=== PATIENT | female | born 1975 | race Caucasian/White ===

== ENCOUNTER 2017-11-01 10:02 | Observation (INO) | payer BC ==
--- OUTSIDE RECORDS SUMMARY | 2017-11-01 10:18 | XMS REPORT ---
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 Active depressive disorder without prior episode Problem Low back pain M54.5 Active Problem Other chronic pain G89.29 Active Problem Recurrent UTI N39.0 Active Problem Anxiety disorder due to known F06.4 Active physiological condition Problem Primary insomnia F51.01 Active Problem History of kidney stones Z87.442 Active Problem Panic disorder [episodic paroxysmal F41.0 Active anxiety] Medications Medication Code Code Instructions Start End Status Dosage System Date Date Pentasa [facility] 99492830449 500 MG Orally Active 2 capsules Four times a day Pyridium ND 05165917255 200 MG Orally August 24August Active 1 tablet Three times a 2017 15, after meals 2017 Lyrica ND 89721295160 75 MG Orally Active 1 capsule 1 four times per to 3 hours day before bedtime in the evening Zofran ND 55384991825 4 MG Orally Active 2 tablets Twice a day Bactrim DS [facility] 26529280723 800-160 MG August 24August Active 1 tablet Orally Twice a 2017 Amitriptyline ND 92451386303 50 MG Orally Active 1 tablet HCl Once a day [place] [facility] 43140941471 7.5-325 MG Active 1 tablet as Orally every 8 needed hrs Results Name Result Date Reference Range Unit Abnormality Flag Urine Dip Stick ----Appearance Dark yellow/Turbid 20170824 ----SP. Gr 1.025 20170824 ----pH 6.0 20170824 ----Ketone Negative 20170824 ----Glucose Negative 20170824 ----Blood 3+ 20170824 ----Protein 1+ 20170824 ----Nitrite Negative 20170824 ----Leukocytes 1+ 20170824 Summary Purpose eClinicalWorks Submission
--- OUTSIDE RECORDS SUMMARY | 2017-11-01 10:18 | XMS REPORT ---
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 without prior episode Problem Other chronic pain G89.29 Active Assessment GERD without esophagitis K21.9 Active Problem Recurrent UTI N39.0 Active Problem Anxiety disorder due to known F06.4 Active physiological condition Problem Primary insomnia F51.01 Active Problem History of kidney stones Z87.442 Active Problem Panic disorder [episodic paroxysmal F41.0 Active anxiety] Assessment Recurrent UTI N39.0 Active Assessment Other chronic pain G89.29 Active Assessment Crohn''s disease of small and large K50.819 Active intestines with complication Assessment History of kidney stones Z87.442 Active Assessment Anxiety disorder due to known F06.4 Active physiological condition Assessment Primary insomnia F51.01 Active Assessment Low back pain M54.5 Active Assessment Migraine without aura and without G43.009 Active status migrainosus, not intractable Assessment Panic disorder [episodic paroxysmal F41.0 Active anxiety] Problem Current mild episode of major F32.0 Active depressive disorder without prior episode Medications Medication Code Code Instructions Start End Status Dosage System Date Date Nitrofurantoin ND 16677164503 100 MG Orally August 01July Active 1 capsule Monohyd Macro every 12 hrs 2017 27, with food 2017 [place] [facility] 29742235728 7.5-325 MG Active 1 tablet Orally every 8 as needed hrs Amitriptyline HCl ND 66220124790 50 MG Orally Active 1 tablet Once a day Zofran ND 79469495540 4 MG Orally Active 2 tablets Twice a day Pentasa [facility] 21509764433 500 MG Orally Active 2 capsules Four times a day Lyrica [facility] 46578070099 75 MG Orally Active 1 capsule four times per 1 to 3 day hours before bedtime in the evening Results No Known Results Summary Purpose eClinicalWorks Submission
[2017-11-01 10:43] LABS: Absolute Lymphocytes (CBC) 2.1 K/uL (0.7-4.9); Absolute Monocytes 0.5 K/uL (0.1-1.3); Absolute Neutrophil 4.5 K/uL (1.8-8.0); Basophils % 0.2 % (0-1.3); Hematocrit 32.1 % (36.0-45.0); MCH 34.3 pg (27.0-35.0); MCV 100.2 fL (80-100); MPV 9.1 fL (7.6-11.3); Monocytes % 7.1 % (3.3-12.3)
[2017-11-01 10:44] LABS: Protime INR 0.97
--- NOTE | 2017-11-01 11:08 | RAD REPORT ---
EXAM DESCRIPTION: CT - Head Brain Wo Cont - 11/01/2017 10:49 am CLINICAL HISTORY: CONFUSED Drowsiness COMPARISON: No comparisons TECHNIQUE: All CT scans are performed using dose optimization technique as appropriate and may inclu de automated exposure control or mA/KV adjustment according to patient size. FINDINGS: No intracranial hemorrhage, hydrocephalus or extra-axial fluid collection.No areas of brai n edema or evidence of midline shift. The paranasal sinuses and mastoids are clear. The calvarium is intact. IMPRESSION: No acute intracranial abnormality.
[2017-11-01 11:14] LABS: ALT/SGPT 87 U/L (12-78); AST/SGOT 46 U/L (15-37); Albumin 4.2 g/dL (3.4-5.0); Alkaline Phosphatase 179 U/L (45-117); BUN Blood Urea Nitrogen 25 mg/dL (7-18); Bicarbonate 21 mmol/L (21-32); Bilirubin Direct < 0.1 mg/dL (0-0.2); Bilirubin Total 0.1 mg/dL (0.2-1.0); Glucose Level 94 mg/dL (74-106); Magnesium 1.9 mg/dL (1.8-2.4); Potassium 3.9 mmol/L (3.5-5.1); Protein, Total 8.1 g/dL (6.4-8.2); Sodium Level 143 mmol/L (136-145)
[2017-11-01 11:15] LABS: Urine Bacteria 20-50 /HPF (<20); Urine Culture Reflex Order REFLEXED; Urine Mucus MOD /HPF (NONE SEEN); Urine RBC 20-50 /HPF (NONE SEEN)
[2017-11-01 11:26] LABS: Barbiturates NEGATIVE (NEGATIVE); Benzodiazepines NEGATIVE (NEGATIVE); Cocaine NEGATIVE (NEGATIVE); METHAMPHETAM NEGATIVE (NEGATIVE); Methadone NEGATIVE (NEGATIVE); Opiates NEGATIVE (NEGATIVE); Phencyclidine POSITIVE (NEGATIVE); THC Cannibis POSITIVE (NEGATIVE)
[2017-11-01] MEDS ORDERED: NA CHLORIDE 0.9% 1,000 ML ONE (11:35)
[2017-11-01] MEDS ORDERED: Levofloxacin500mg IV 500 MG/100 ML BAG IV ONE (11:35)
[2017-11-01 11:59] LABS: Urine Blood TRACE (NEG); Urine Glucose NEGATIVE (NEG); Urine Protein NEGATIVE (NEG); Urine pH 6.5 (5.0-7.0)
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
--- NOTE | 2017-11-01 12:20 | EDPHYS ---
Physician Documentation [facility] Name: Mckenna Avila Age: 42 yrs Sex: Female : 1975 Arrival Date: 11/01/2017 Time: 10:04 Bed 4 Private MD: None, None ED Physician Sai Pardo HPI: 11/01 12:15 This 42 yrs old Female presents to ER via Wheelchair with complaints of jr8 Confused. 12:15 Onset: The symptoms/episode began/occurred acutely, today. Associated signs and jr8 symptoms: Pertinent positives: vomiting. Modifying factors: The patient symptoms are alleviated by nothing, the patient symptoms are aggravated by nothing. The patient has experienced a previous episode. The patient has not recently seen a physician. stated that last known normal was 10 pm last night. Got a call from neighbor saying patient was not acting right. Came home and saw that she was slurring her speech, combative, and confused. Came to ED at that time. Patient alert to person, place but confused and slow to respond . 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 - Ebola Screening: : No symptoms or risks identified at this time. - Social history:: Smoking status: Patient/guardian denies using tobacco, Patient/guardian denies using alcohol. ROS: 12:15 Eyes: Negative for injury, pain, redness, and discharge, ENT: Negative for injury, jr8 pain, and discharge, Neck: Negative for injury, pain, and swelling, Cardiovascular: Negative for chest pain, palpitations, and edema, Respiratory: Negative for shortness of breath, cough, wheezing, and pleuritic chest pain, Back: Negative for injury and pain, MS/Extremity: Negative for injury and deformity, Skin: Negative for injury, rash, and discoloration. 12:15 Abdomen/GI: Positive for nausea and vomiting, Negative for abdominal pain, diarrhea, abdominal distension, hematemesis, rectal bleeding, flatulence. 12:15 Neuro: Positive for altered mental status. Exam: 12:15 Head/Face: Normocephalic, atraumatic. Eyes: Pupils equal round and reactive to light, jr8 extra-ocular motions intact. Lids and lashes normal. Conjunctiva and sclera are non-icteric and not injected. Cornea within normal limits. Periorbital areas with no swelling, redness, or edema. ENT: Nares patent. No nasal discharge, no septal abnormalities noted. Tympanic membranes are normal and external auditory canals are clear. Oropharynx with no redness, swelling, or masses, exudates, or evidence of obstruction, uvula midline. Mucous membranes moist. Neck: Trachea midline, no thyromegaly or masses palpated, and no cervical lymphadenopathy. Supple, full range of motion without nuchal rigidity, or vertebral point tenderness. No Meningismus. Cardiovascular: Regular rate and rhythm with a normal S1 and S2. No gallops, murmurs, or rubs. Normal PMI, no JVD. No pulse deficits. Respiratory: Lungs have equal breath sounds bilaterally, clear to auscultation and percussion. No rales, rhonchi or wheezes noted. No increased work of breathing, no retractions or nasal flaring. Abdomen/GI: Soft, non-tender, with normal bowel sounds. No distension or tympany. No guarding or rebound. No evidence of tenderness throughout. Back: No spinal tenderness. No costovertebral tenderness. Full range of motion. Skin: Warm, dry with normal turgor. Normal color with no rashes, no lesions, and no evidence of cellulitis. MS/ Extremity: Pulses equal, no cyanosis. Neurovascular intact. Full, normal range of motion. Neuro: Awake and alert, oriented to person, place. Cranial nerves II-XII grossly intact. Motor strength 5/5 in all extremities. Sensory grossly intact. Cerebellar exam normal. Vital Signs: 10:22 BP 108 / 83; Pulse 81; Resp 18; Temp 98.4(TE); Pulse Ox 100% on R/A; Weight 65.77 kg; hj Height 5 ft. 6 in. (167.64 cm); 11:01 BP 127 / 85; Pulse 72; Resp 18; Pulse Ox 100% on R/A; hj 12:06 BP 110 / 77; Pulse 75; Resp 18; Pulse Ox 100% on R/A; hj 13:07 BP 115 / 80; Pulse 76; Resp 18; Pulse Ox 100% on R/A; hj 13:41 BP 117 / 82; Pulse 75; Resp 18; Pulse Ox 100% on R/A; hj 10:22 Body Mass Index 23.40 (65.77 kg, 167.64 cm) hj [place] Coma Score: 12:15 Eye Response: to voice(3). Verbal Response: confused(4). Motor Response: obeys jr8 commands(6). Total: 13. MDM: 10:13 Patient medically screened. jr8 12:15 Data reviewed: vital signs, nurses notes, lab test result(s), EKG, radiologic studies, jr8 CT scan. Data interpreted: Pulse oximetry: on room air is 100 %. Interpretation: normal. Counseling: I had a detailed discussion with the patient and/or guardian regarding: the historical points, exam findings, and any diagnostic results supporting the discharge/admit diagnosis, lab results, radiology results, the need for further work-up and treatment in the hospital. Physician consultation: Piper Lanza MD was called at 12:18, was contacted at 12:18, regarding admission, to the telemetry unit. consult, patient's condition, and will see patient. 11/01 10:13 Order name: Acetaminophen; Complete Time: 11:11/01 10:13 Order name: Basic Metabolic Panel; Complete Time: 11:11/01 10:13 Order name: CBC with Diff; Complete Time: 10:47 11/01 10:13 Order name: ETOH Level; Complete Time: 11:19 11/01 10:13 Order name: Hepatic Function; Complete Time: 11:11/01 10:13 Order name: PT-INR; Complete Time: 10:56 11/01 10:13 Order name: Salicylate; Complete Time: 11:19 11/01 10:13 Order name: Urine Drug Screen; Complete Time: 12:05 11/01 10:14 Order name: Magnesium; Complete Time: 11:11/01 10:25 Order name: Urine Microscopic Only; Complete Time: 11:19 11/01 10:56 Order name: Blood Culture Adult (2) 11/01 10:56 Order name: Blood Culture EDNE 11/01 11:00 Order name: Urine Dipstick--Ancillary (enter results) 11/01 11:00 Order name: Urine --Ancillary (enter results) eb 11/01 10:13 Order name: Urine Test (obtain specimen); Complete Time: 10:57 11/01 10:13 Order name: EKG; Complete Time: 10:15 11/01 10:13 Order name: EKG - Nurse/Tech; Complete Time: 10:26 11/01 10:13 Order name: IV Saline Lock; Complete Time: 10:25 11/01 10:13 Order name: Labs collected and sent; Complete Time: 10:25 [facility] 11/01 10:13 Order name: Urine Dipstick-Ancillary (obtain specimen); Complete Time: 10:56 [facility] 11/01 10:19 Order name: CT Head Brain wo Cont; Complete Time: 11:19 iw 11/01 10:25 Order name: Straight Cath; Complete Time: 10:56 11/01 11:17 Order name: Urine Culture [facility] [place] Administered Medications: 11:20 Drug: NS 0.9% 1000 ml Route: IV; Rate: 1000 ml; Site: right antecubital; hj 13:06 Follow up: IV Status: Completed infusion hj 11:22 Drug: LevaQUIN 500 mg Volume: 100 ml; Route: IVPB; Infused Over: 60 mins; Site: right antecubital; 13:07 Follow up: IV Status: Completed infusion hj Point of Care Testing: Blood Glucose: 10:15 Blood Glucose: 95 mg/dL; iw Ranges: Critical Glucose Levels:Adult <50 mg/dl or >400 mg/dl <40 mg/dl or >180 mg/dl Disposition: 15:35 Co-signature as Attending Physician, Sai Pardo MD I agree with the assessment and kdr plan of care. Disposition: 11/01/17 12:19 Hospitalization ordered by Piper Lanza for Observation. Preliminary diagnosis are Urinary tract infection, site not specified, Altered mental status, unspecified, Drug abuse. - Bed requested for Telemetry/MedSurg (observation). - Status is Observation. hj - Condition is Stable. - Problem is new. - Symptoms are unchanged. UTI on Admission? Yes Signatures: Dispatcher [employer] EDMS Sai Pardo MD MD [facility] Beverly Troncoso RN RN Sarah Abdi RN RN aa5 Babar Treadwell PA PA jr8 Doug Gutiérrez RN RN Sheri Stewart Corrections: (The following items were deleted from the chart) 13:34 12:19 Hospitalization Ordered by Piper Lanza MD for Observation. Preliminary eb diagnosis is Urinary tract infection, site not specified; Altered mental status, unspecified; Drug abuse. Bed requested for Telemetry/MedSurg (observation). Status is Observation. Condition is Stable. Problem is new. Symptoms are unchanged. UTI on Admission? Yes. jr8 14:15 13:34 11/01/2017 12:19 Hospitalization Ordered by Piper Lanza MD for Observation. hj Preliminary diagnosis is Urinary tract infection, site not specified; Altered mental status, unspecified; Drug abuse. Bed requested for Telemetry/MedSurg (observation). Status is Observation. Condition is Stable. Problem is new. Symptoms are unchanged. UTI on Admission? Yes. eb
[2017-11-01] MEDS ORDERED: ONDANSETRON 4 MG/2 ML VIAL IV PRN (14:01)
[2017-11-01] MEDS ORDERED: ACETAMINOPHEN 500 MG TAB PO PRN (14:01)
[2017-11-01 14:53] VITALS: BMI 19.5
--- NOTE | 2017-11-01 15:04 | P.HP ---
Certification for Inpatient Patient admitted to: Observation With expected LOS: <2 Midnights Patient will require the following post-hospital care: None Practitioner: I am a practitioner with admitting privileges, knowledge of patient current condition, hospital course, and medical plan of care. Services: Services provided to patient in accordance with Admission requirements found in Title 42 Section 412.3 of the Code of Federal Regulations Patient History Date of Service: 11/01/17 Primary Care Provider: None Reason for admission: AMS History of Present Illness: The patient is a 42-year-old female with significant past medical history of Crohn's disease who was brought over to the ED today after was found to be altered mental status at the house. at bedside stated that patient last known alert and oriented was at 10:00 p.m. last night and after which this morning he stated that he found her lethargic and altered in the room and brought her to the ER. Patient has had similar episodes in the past were she was found to have taken her pain medication is and has overdosed on medication in the past as well. Patient's stated that she also has had urinary tract infection previously which has caused her to have altered mental status as well. The denies patient having any fever chills nausea vomiting or any other significant associated symptoms and states that she is usually in good state of health. In the ER when assessed the patient patient was alert and oriented x3 does appear to be lethargic however and thus was admitted to the hospital for observation for 24 hr for altered mental status with lethargy and possible UTI. Allergies cefdinir [From Omnicef] Allergy (Verified 01/08/17 09:13) Hives ciprofloxacin [From Cipro] Allergy (Verified 01/08/17 09:14) red rash and hot at iv site Home Medications: Buprenorphine [Butrans] 20 patch TOP EVERY 7TH DAY 12/07/15 Ondansetron HCl 1 tab PO Q6H 12/07/15 Mesalamine [Pentasa*] 500 mg PO BID 04/18/16 Hydrocodone 10/APAP 325 [[place] [address]*] 1 tab PO Q4HP PRN #10 tab 04/22/16 Adalimumab [Humira] 40 mg SQ ONCE 01/08/17 Ibuprofen 800 mg PO TID 01/08/17 Loperamide [Imodium] 2 mg PO Q6HP PRN 01/08/17 Melatonin 20 mg PO BEDTIME 01/08/17 Ondansetron [Zofran] 4 mg PO Q6H PRN 01/08/17 Ranitidine [Zantac] 150 mg PO DAILY 01/08/17 predniSONE [Deltasone] 10 mg PO BID 01/08/17 - Past Medical/Surgical History Diabetic: No -: Chron's -: hysterectomy -: kidney stone removed -: grace -: tubal ligation - Family History Family History: Reviewed- Non-Contributory - Family History Mother -: Hypertension Father -: Hypertension - Social History Smoking Status: Never smoker Alcohol use: No CD- Drugs: Yes Caffeine use: Yes Place of Residence: Home Review of Systems 10-point ROS is otherwise unremarkable Physical Examination - Vital Signs Temperature: 97.3 F Blood Pressure: 136/78 Pulse: 71 Respirations: 18 Pulse Ox (%): 100 - Physical Exam General: Alert, In no apparent distress HEENT: Atraumatic, PERRLA, Mucous membr. moist/pink, EOMI, Sclerae nonicteric Neck: Supple, 2+ carotid pulse no bruit, No LAD, Without JVD or thyroid abnormality Respiratory: Clear to auscultation bilaterally, Normal air movement Cardiovascular: Regular rate/rhythm, Normal S1 S2 Gastrointestinal: Normal bowel sounds, No tenderness Musculoskeletal: No tenderness Integumentary: No rashes Neurological: Normal gait, Normal speech, Normal strength at 5/5 x4 extr, Normal tone, Normal affect Lymphatics: No axilla or inguinal lymphadenopathy - Studies Laboratory Data (last 24 hrs) 11/01/17 10:20: PT 11.4, INR 0.97 11/01/17 10:20: WBC 7.1, Hgb 11.0 L, Hct 32.1 L, Plt Count 262 11/01/17 10:20: Sodium 143, Potassium 3.9, BUN 25 H, Creatinine 1.00, Glucose 94 , Magnesium 1.9, Total Bilirubin 0.1 L, AST 46 H, ALT 87 H, Alkaline Phosphatase 179 H Assessment and Plan - Plan Assessment/Plan 1 AMS -Most likely 2.2 to Drugs vs UTI -UDS + for PCP and THC -HEad CT negative -patient now AAOx3 2. UTI -UA with UTI -Urine Culture pending -IV rocephin for now 3. Drug abuse -UDS + for PCP and THC -Educated on abstain 4. Crohns Disease -Stable now Dispo: Admit to Med surg for Observation Discharge Plan: Home Plan to discharge in: 24 Hours - Advance Directives Does patient have a Living Will: No Does patient have a Durable POA for Healthcare: No - Code Status/Comfort Care Code Status Assessed: Yes Critical Care: No
[2017-11-01] MEDS: NA CHLORIDE 0.9% 1,000 ML IV SCH (15:47)
[2017-11-01] MEDS: CEFTRIAXONE/SWI 1gm 1 GM/10 ML SYR IV SCH (15:47)
[2017-11-02] MEDS: NA CHLORIDE 0.9% 1,000 ML IV SCH ×3 (00:01→10:01)
[2017-11-02 06:16] LABS: Absolute Lymphocytes (CBC) 1.6 K/uL (0.7-4.9); Absolute Monocytes 0.2 K/uL (0.1-1.3); Absolute Neutrophil 2.2 K/uL (1.8-8.0); Basophils % 0.3 % (0-1.3); Eosinophils % 1.3 % (0-4.4); Hematocrit 40.1 % (36.0-45.0); Lymphocytes % 39.2 % (15.3-44.8); MCH 33.9 pg (27.0-35.0); MCV 99.8 fL (80-100); MPV 9.4 fL (7.6-11.3); Monocytes % 6.1 % (3.3-12.3); RBC Red Blood Cell Count 4.02 M/uL (3.86-4.86)
[2017-11-02 06:27] LABS: ALT/SGPT 65 U/L (12-78); AST/SGOT 30 U/L (15-37); Albumin 3.7 g/dL (3.4-5.0); Alkaline Phosphatase 137 U/L (45-117); BUN Blood Urea Nitrogen 15 mg/dL (7-18); Bicarbonate 21 mmol/L (21-32); Bilirubin Total 0.2 mg/dL (0.2-1.0); Glucose Level 93 mg/dL (74-106); Potassium 3.9 mmol/L (3.5-5.1); Protein, Total 7.3 g/dL (6.4-8.2); Sodium Level 146 mmol/L (136-145)
[2017-11-02 06:49] LABS: Urine Appearance CLEAR; Urine Bilirubin NEGATIVE (NEG); Urine Blood NEGATIVE (NEG); Urine Color YELLOW; Urine Glucose NEGATIVE (NEG); Urine Protein NEGATIVE (NEG); Urine Urobilinogen 0.2 mg/dL (0.2-1.0); Urine pH 6.5 (5.0-7.0)
[2017-11-02 06:56] LABS: Urine Microscopic Reflex NO UMIC
--- NOTE | 2017-11-02 06:57 | EKG ---
Test Date: 2017-11-01 Test Time: 10:14:09 Scaffolding Helper: MIGNON MEASUREMENT RESULTS: Intervals: Rate: 81 ND: 138 QRSD: 90 QT: 406 QTc: 471 [place]: P: 53 ND: 138 QRS: -13 T: 35 INTERPRETIVE STATEMENTS: Normal sinus rhythm Minimal voltage criteria for LVH, may be normal variant Borderline ECG Compared to ECG 01/08/2017 09:32:41 Left ventricular hypertrophy now present Sinus bradycardia no longer present Sinus arrhythmia no longer present Electronically Signed On 11-02-17 06:54:52 CDT by Rashaun Muller
[2017-11-02] MEDS ORDERED: ENOXAPARIN 40 MG/0.4 ML SQ SCH (09:00)
[2017-11-02] MEDS: CEFTRIAXONE/SWI 1gm 1 GM/10 ML SYR IV SCH (09:16)
[2017-11-02 09:59] VITALS: BP 132/80; TEMP 97.7
[2017-11-02 10:35] VITALS: O2SAT 100
--- NOTE | 2017-11-02 12:18 | P.SSS ---
Patient History Date of Service: 11/02/17 Primary Care Provider: None Reason for admission: AMS History of Present Illness: The patient is a 42-year-old female with significant past medical history of Crohn's disease who was brought over to the ED today after was found to be altered mental status at the house. at bedside stated that patient last known alert and oriented was at 10:00 p.m. last night and after which this morning he stated that he found her lethargic and altered in the room and brought her to the ER. Patient has had similar episodes in the past were she was found to have taken her pain medication is and has overdosed on medication in the past as well. Patient's stated that she also has had urinary tract infection previously which has caused her to have altered mental status as well. The denies patient having any fever chills nausea vomiting or any other significant associated symptoms and states that she is usually in good state of health. In the ER when assessed the patient patient was alert and oriented x3 does appear to be lethargic however and thus was admitted to the hospital for observation for 24 hr for altered mental status with lethargy and possible UTI. Allergies cefdinir [From Omnicef] Allergy (Verified 01/08/17 09:13) Hives ciprofloxacin [From Cipro] Allergy (Verified 01/08/17 09:14) red rash and hot at iv site Home Medications: Ondansetron HCl 1 tab PO Q6H 12/07/15 Mesalamine [Pentasa*] 500 mg PO BID 04/18/16 Hydrocodone 10/APAP 325 [[place] 10/325*] 1 tab PO Q4HP PRN #10 tab 04/22/16 Adalimumab [Humira] 40 mg SQ ONCE 01/08/17 Ibuprofen 800 mg PO TID 01/08/17 Loperamide [Imodium*] 2 mg PO Q6HP PRN 01/08/17 Melatonin 20 mg PO BEDTIME 01/08/17 Ondansetron [Zofran (Odt)*] 4 mg PO Q6H PRN 01/08/17 Ranitidine [Zantac*] 150 mg PO DAILY 01/08/17 predniSONE [Prednisone*] 10 mg PO BID 01/08/17 Levofloxacin [Levaquin] 500 mg PO DAILY #10 tablet 11/02/17 - Past Medical/Surgical History Diabetic: No -: Chron's -: Kidney Stones -: Cdiff hx -: hysterectomy -: kidney stone removed -: grace -: tubal ligation - Family History Family History: Reviewed- Non-Contributory - Family History Mother -: Hypertension Father -: Hypertension - Social History Smoking Status: Never smoker Alcohol use: No CD- Drugs: Yes Caffeine use: Yes Place of Residence: Home Review of Systems 10-point ROS is otherwise unremarkable Physical Examination - Vital Signs Temperature: 97.7 F Blood Pressure: 132/80 Pulse: 80 Respirations: 17 Pulse Ox (%): 100 - Physical Exam General: Alert, In no apparent distress HEENT: Atraumatic, PERRLA, Mucous membr. moist/pink, EOMI, Sclerae nonicteric Neck: Supple, 2+ carotid pulse no bruit, No LAD, Without JVD or thyroid abnormality Respiratory: Clear to auscultation bilaterally, Normal air movement Cardiovascular: Regular rate/rhythm, Normal S1 S2 Gastrointestinal: Normal bowel sounds, No tenderness Musculoskeletal: No tenderness Integumentary: No rashes Neurological: Normal gait, Normal speech, Normal strength at 5/5 x4 extr, Normal tone, Normal affect Lymphatics: No axilla or inguinal lymphadenopathy Treatment Summary: Discharge diagnosis 1. Toxic metabolic encephalopathy 2. UTI 3. Drug abuse 4. Crohn's disease 5. Pain medication dependance Hospital Course Over the course of the hospital stay patient remained stable Patient was initially admitted to the hospital for altered mental status was found to have urinary tract infection along with UDS which was positive for PCP and marijuana. Both of those combining was causing patient's acute altered mental status. Patient was started on IV fluids and IV antibiotics here. Patient had marked improvement in her symptoms. Patient then was switched over to oral medications became alert and oriented x3. Patient then was discharged home under stable condition and was asked to follow up with the her primary care doctor - Disposition Disposition: ROUTINE DISCHARGE Condition: GOOD Patient Discharge Instructions: Please f.u with PCP and GI in 1 to 2 week post discharge. New medication. levaquin 500mg Daily for 10 days Diet: Regular Activity: Ad ham
== END 2017-11-02 14:00 | disposition home or self-care (01) ==
LOC: ER 10:02 → ERHOLD 12:46 → 2ND 13:57
PROVIDERS: ADMIT Family Medicine; ATTEND Family Medicine
DX: G92 Toxic encephalopathy (principal); N39.0 Urinary tract infection, site not specified; F12.10 Cannabis abuse, uncomplicated; K50.90 Crohn's disease, unspecified, without complications; Z87.442 Personal history of urinary calculi
CPT/HCPCS: 36415; 51702; 70450; 80048; 80053; 80076; 80307; 80320; 80329; 81003; 81015; 81025; 82962; 83735; 85025; 85610; 87040; 87086; 87088; 87205; 93005; 96365; 96366; 99285; G0378; J0696; J1650; J2405; J7030

== ENCOUNTER 2020-07-09 09:53 | Day surgery (SDC) | payer BC ==
--- NOTE | 2020-07-08 16:05 | RAD REPORT ---
EXAM DESCRIPTION: RAD - Chest Pa And Lat (2 Views) - 07/08/2020 3:23 pm CLINICAL HISTORY: pre op, pending temporal artery biopsy COMPARISON: Two view chest November 2015 TECHNIQUE: Frontal and lateral views of the chest were obtained. FINDINGS: The lungs are clear of focal abnormality. Mildly prominent interstitial pattern not clear ly different from the comparison study. Heart size is normal and central vasculature is within normal limits. No pleural effusion or pneumothorax seen. No acute bony finding noted. No aortic abnormal ity. IMPRESSION: No acute cardiopulmonary process. No significant change from comparison study.
[2020-07-09] MEDS ORDERED: CEFAZOLIN/SWI 1gm 1 GM/10 ML SYR ONE (10:46)
[2020-07-09] MEDS ORDERED: Ringers Lactate 1,000 ML IV ONE (10:46)
[2020-07-09] MEDS ORDERED: LIDOCAINE 1% MPF 30 ML VIAL ONE (11:42)
[2020-07-09] MEDS ORDERED: propofoL 200 MG/20 ML VIAL IV ONE (11:48)
[2020-07-09] MEDS ORDERED: FENTANYL CITR 100 MCG/2 ML ONE (11:48)
[2020-07-09] MEDS ORDERED: LIDOCAINE 2% MPF 5 ML VIAL ONE (11:48)
[2020-07-09] MEDS ORDERED: ONDANSETRON 4 MG/2 ML VIAL ONE ×3 (11:49→12:56)
[2020-07-09] MEDS ORDERED: MIDAZOLAM HCL 2 MG/2 ML INJ ONE (11:49)
[2020-07-09] MEDS ORDERED: dexAMETHasone 10 MG/ML VIAL ONE (11:50)
--- NOTE | 2020-07-09 11:55 | EKG ---
Test Date: 2020-07-08 Test Time: 14:10:10 Dental Assistant Teacher: TG MEASUREMENT RESULTS: Intervals: Rate: 71 MS: 148 QRSD: 86 QT: 398 QTc: 432 [place]: P: 56 MS: 148 QRS: 20 T: 38 INTERPRETIVE STATEMENTS: Normal sinus rhythm Possible Left atrial enlargement Left ventricular hypertrophy Abnormal ECG Compared to ECG 11/01/2017 10:14:09 No significant changes Electronically Signed On 07-09-20 11:54:06 CDT by Rashaun Muller
[2020-07-09] MEDS ORDERED: Mastisol Adhesive Liq ONE (12:31)
[2020-07-09] MEDS: HYDROMORPHONE HCL 1 MG/ML INJ ONE ×4 (12:38→12:53)
--- NOTE | 2020-07-09 13:09 | OP ---
Date of Procedure: 07/09/2020 Surgeon: Darrian Najera MD Line Assigner: WINDY Grimm. Preoperative Diagnosis: Vision change in left eye, rule out temporal arteritis. Postoperative Diagnosis: Vision change in left eye, rule out temporal arteritis. Procedure: Left temporal artery biopsy utilizing Doppler device. Estimated Blood Loss: Minimal. Specimen: Left temporal artery. Findings: As above. Anesthesia: General. Complications: None. Disposition: The patient tolerated the procedure in stable condition and taken to Recovery in good g eneral condition. Procedure In Detail: The patient was brought to the OR and placed in supine position. General anest hesia begun. The patient was prepped and draped in the usual sterile fashion. Doppler device was us ed to isolate a branch of the temporal artery anterior and superior to the left ear. Then, a Marcain e 0.5% was infiltrated locally. Then, a 4 cm incision made. Subcutaneous tissue divided and tempora l artery branch identified. Proximal and distal control obtained. A 4-0 silk was used to tie off elizabeth th ends and 4 cm segment excised sent to Pathology. Wound irrigated. Bleeding controlled with caute ry and then 4-0 chromic was used to approximate subcutaneous tissue and close the skin. Sterile dres sing was applied. The patient was awakened and taken to Recovery in good general condition. Discharge Note: The patient will go to Day Surgery and home when stable. Disposition: Home. Condition: Stable. Discharge Instructions: Resume home medications and diet. Activity as tolerated. No heavy lifting. Remove outer dressing in 2 days. Shower. Keep wound clean and dry. Keep Steri-Strips on at all t imes. Followup in my office in 2 weeks. Call for appointment. Follow with Dr. Carter in 1 week. Tylenol No.3 one tablet p.o. q.4 p.r.n. pain. /MODL Voice ID: [id number] Report ID: [id number]
[2020-07-09 16:11] VITALS: BP 102/88; TEMP 98; O2SAT 97
== END 2020-07-09 14:50 | disposition home or self-care (01) ==
LOC: OR 09:53
PROVIDERS: ATTEND Surgery
PROC: 03BT0ZZ Excision of Left Temporal Artery, Open Approach (ICD-10-PCS; principal; 2020-07-09 11:00)
DX: H53.9 Unspecified visual disturbance (principal); Z20.822 Contact with and (suspected) exposure to COVID-19
CPT/HCPCS: 93005; 36415; 88305; 86140; 71046; 37609; U0003; J2704; J2250; J3010; J1100; J1170 ×2; J0690; J7120; J2405 ×3

== ENCOUNTER 2020-12-30 11:34 | Inpatient (IN) | payer BC ==
--- OUTSIDE RECORDS SUMMARY | 2020-12-30 12:21 | XMS REPORT | Continuity of Care Document ---
:1975 Author Organization [facility] t Address [address] [place] [address] Care Team Providers Name Role Phone NETO BALDERRAMA Primary Care Physician Unavailable Юлия SHEEHAN, Delphine Attending Clinician SANDRITA Attending Clinician Unavailable Niurka Eagle MD Attending Clinician Sandrita MENJIVAR Attending Clinician Quan Kennedy MD Attending Clinician [phone] Gopal Fisher MD Attending Clinician Pob, Lab Main Attending Clinician Unavailable Debi MENJIVAR Attending Clinician DEBI Attending Clinician Unavailable Doctor Unassigned, Name Attending Clinician Unavailable Carter SHEEHAN, A Attending Clinician Unavailable Ngozi Snyder MD Attending Clinician Jude MENJIVAR Attending Clinician GOPAL FISHER Attending Clinician Unavailable GOPAL FISHER Attending Clinician Unavailable Sayda Hernandez Attending Clinician Elyse Vizcarra MD Attending Clinician Hari STAUFFER, F Attending Clinician Tung STAUFFER Attending Clinician Pool MENJIVAR Attending Clinician Cesar MENJIVAR Attending Clinician Satya MENJIVAR Attending Clinician JUAN M Attending Clinician Unavailable Vishnu REPORT CHECKER, G Attending Clinician Aba DO, J Attending Clinician Provider, Urgent Care Attending Clinician Unavailable Rolanda PRESSLEY, A Attending Clinician Sadia ORANTES Attending Clinician Unavailable Judi SPOOL CARRIER, A Attending Clinician Rohit PAC, S Attending Clinician Juan M MENJIVAR Attending Clinician 2, Lab Attending Clinician Unavailable LORA GARCIA Attending Clinician Unavailable SANDRITA Admitting Clinician Unavailable Sandrita MENJIVAR Admitting Clinician Jude MENJIVAR Admitting Clinician Pool MENJIVAR Admitting Clinician JILLIAN Admitting Clinician Unavailable Payers Payer Name Policy Type Policy Number Effective Date Expiration Date S our [place] - [id number] 2012 00:00:00 OUT OF STATE Problems Condition Condition Condition Status Onset Resolution Last Treating Co mments Source Name Details Category Date Date Treatment Clinician Date Hypokalemi Hypokalemi Disease Active 2020-02 U carolyn a a 0-25 ity of 00:: [address] Hypotensio Hypotensio Disease Active 2020-02 U carolyn n n 0-24 ity of 00:: [address] Obesity Obesity Disease Active 2020-02 Univers (BMI (BMI 0-24 ity of 30-39.9) 30-39.9) 00:00: [address] 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 6-02 ity of 00:00: [address] Status Status Disease Active Univers migrainosu migrainosu 5-15 it y of s s 00:00: [address] Pyelonephr Pyelonephr Disease Active U carolyn itis itis 4-18 ity of 00:: [address] Complicate Complicate Disease Active U nivers d UTI d UTI 5-10 ity of (urinary (urinary 00:00: [place] tract tract 00 Medical infection) infection) Br anch Chest pain Chest pain Disease Active 2014-02 U nivers 0-20 ity of 00:00: [place] 00 Medical Branch Allergies, Adverse Reactions, Alerts Allergy Allergy Status Severity Reaction(s) Onset Inactive Treating Comm ents Source Name Type Date Date Clinician Ciproflo Propensi Active Unknown - 2018-02 Uni vers xacin ty to See comments -13 ity of adverse 00:00: [place] reaction 00 Medical s Branch CIPROFLO DRUG Active Unknown-Cmnt 2018-02 Un matt XACIN INGREDI - ity of 00:00: [place] 00 Medical Branch Cefdinir Propensi Active Unknown - Bloody Uni vers ty to See comments 4-06 diarrhea it y of adverse 00:00: [place] reaction 00 Medical s Branch CEFDINIR DRUG Active Unknown-Cmnt Un matt INGREDI -06 ity of 00:00: [place] 00 Medical Branch Cipro Adverse Active Hives, [facility] Reaction burning [facility] Social History Social Habit Start Date Stop Date Quantity Comments Source History of Snuff User University of tobacco use [facility] History SDOH University o f Alcohol Frequency [facility] edical Branch History SDOH University o f Alcohol Std [place] Medical Drinks Branch History [facility] University o f Alcohol Binge [place] Medic al [place] Exposure to Yes [facility] SARS-CoV-2 [facility] (event) [place] Alcohol intake 2020-12-05 2020-12-05 0 /d University of 00:00:00 00:00:00 [facility] Tobacco use and 2020-07-13 2020-07-13 Never used Universit y of exposure 00:00:00 00:00:00 [facility] Alcohol Comment 2015-06-22 2015-06-22 No alcohol use Unive rsity of 00:00:00 00:00:00 per pt [facility] Sex [birth year] Universit y of 00:00:00 00:00:00 [facility] Smoking Status Start Date Stop Date Source Never smoker [facility] Medications Ordered Filled Start Stop Current Ordering Indication Dosage Frequency Signature Comments Components Source Medication Medication Date Date Medication? Clinician (SIG) Name Name predniSONE 2020-02 Yes 20mg Take 20 mg U nivers 10 mg 02 by mouth ity of tablet 03:45: daily. [place] [id number] Medical Branch Hydrocodone 2020-02 Yes 1{tbl} Take 1 Un matt -Acetaminop -02 tablet by ity of hen 7.5-300 03:45: mouth 3 [place] as mg tablet 04 (three) Medical times Branch daily. tiZANidine 2020-02 Yes 4mg Take 4 mg Un matt 4 mg tablet 02 by mouth 3 it y of 03:45: (three) [place] 04 times Medical daily. Branch foLIC acid 2020-02 Yes 3mg Take 3 mg Un matt 1 mg tablet 02 by mouth ity of 03:45: daily. [place] [address] Medical Branch methocarbam 2020-02 Yes 500mg Take 500 U nivers oL 500 mg -02 mg by ity of tablet 03:45: mouth at [place] [address] bedtime. Medical Branch dicyclomine 2020-02 Yes 20mg Take 20 mg Univers 20 mg 02 by mouth 3 ity of tablet 03:45: (three) [place] 04 times Medical daily. Branch famotidine 2020-02 Yes 40mg Take 40 mg U nivers 40 mg 02 by mouth ity of tablet 03:45: at [place] [address] bedtime. Medical Branch albuterol 2020-02 Yes 2{puff} Inhale 2 U nivers 90 -02 Puffs 3 ity of mcg/actuati 03:45: (three) [place] on inhaler 04 times Medical daily. Branch diphenoxyla 2020-02 Yes 1{tbl} Take 1 Un matt te-atropine -02 tablet by ity of (LOMOTIL) 03:45: mouth [place] 2.5-0.025 04 needed. Medical mg tablet Branch Dexlansopra 2020-02 Yes 1{capsu Take 1 U nivers zole 1-02 le} capsule by ity of (DEXILANT) 03:45: mouth [place] 60 mg 04 before Medical capsule meals. Branch furosemide 2020-02 Yes [id number] 20mg Take 1 U nivers 20 mg - tablet by ity of tablet 00:00: mouth [place] 00 every Medical Sunday, Branch Sunday and Sunday. furosemide 2020-02 Yes [id number] 20mg Take 1 U nivers 20 mg 1-01 tablet by ity of tablet 00:00: mouth [place] 00 every Medical Sunday, Branch Sunday and Sunday. metoprolol 2020-02 Yes 25mg Take 25 mg U nivers succinate 0-31 by mouth ity of (TOPROL XL 16:03: daily. [place] ORAL) 38 Medical Branch inFLIXimab 2020-02 Yes 840mg Inject 840 Univers (REMICADE) 0-31 mg ity of 100 mg 16:03: intravenou [place] injection 38 sly every Medic al 6 (six) Branch weeks. predniSONE 2020-02 Yes 20mg Take 20 mg U nivers 10 mg 0-31 by mouth ity of tablet 16:03: daily. [place] [address] Medical Branch Hydrocodone 2020-02 Yes 1{tbl} Take 1 Un matt -Acetaminop 0-31 tablet by ity of hen 7.5-300 16:03: mouth 3 [place] mg tablet 38 (three) Medical times Branch daily. tiZANidine 2020-02 Yes 4mg Take 4 mg Un matt 4 mg tablet 0-31 by mouth 3 it y of 16:03: (three) [place] [address] times Medical daily. Branch foLIC acid 2020-02 Yes 3mg Take 3 mg Un matt 1 mg tablet 0-31 by mouth ity of 16:03: daily. [place] [address] Medical Branch methocarbam 2020-02 Yes 500mg Take 500 U nivers oL 500 mg 0-31 mg by ity of tablet 16:03: mouth at [place] [address] bedtime. Medical Branch dicyclomine 2020-02 Yes 20mg Take 20 mg Univers 20 mg 0-31 by mouth 3 ity of tablet 16:03: (three) [place] 38 times Medical daily. Branch famotidine 2020-02 Yes 40mg Take 40 mg U nivers 40 mg 0-31 by mouth ity of tablet 16:03: at [place] [address] bedtime. Medical Branch albuterol 2020-02 Yes 2{puff} Inhale 2 U nivers 90 0-31 Puffs 3 ity of mcg/actuati 16:03: (three) [place] on inhaler 38 times Medical daily. Branch diphenoxyla 2020-02 Yes 1{tbl} Take 1 Un matt te-atropine 0-31 tablet by ity of (LOMOTIL) 16:03: mouth [place] 2.5-0.025 38 needed. Medical mg tablet Branch Dexlansopra 2020-02 Yes 1{capsu Take 1 U nivers zole 0-31 le} capsule by ity of (DEXILANT) 16:03: mouth [place] 60 mg 38 before Medical capsule meals. Branch metoprolol 2020-02 Yes 25mg Take 25 mg U nivers succinate 0-31 by mouth ity of (TOPROL XL 16:03: daily. [place] ORAL) 38 Medical Branch inFLIXimab 2020-02 Yes 840mg Inject 840 Univers (REMICADE) 0-31 mg ity of 100 mg 16:03: intravenou [place] injection 38 sly every Medic al 6 (six) Branch weeks. benzonatate 2020-02- No 200mg Take 200 Univers 200 mg 0-31 10-31 mg by ity of capsule 11:53: 00:00 mouth 3 [place] 46 :00 (three) Medical times Branch daily as needed for Cough. METHOTREXAT 2020-02- No .6mg inject 0.6 Univers E, PF, SC 0-31 10-31 mg under ity o f 11:53: 00:00 the skin [place] 46 :00 weekly. Medical Branch NaCl 0.9% 2020-02- Yes [id number] 1000mg Infuse Univers (NS) PgBk 012-23 1,000 mg ity o f 50 mL with 00:00: 05:59 every 12 [place] ceFEPIme 1 00 :00 (twelve) Medic al gram SolR hours for Branc h 1,000 mg 10 days. vancomycin/ 2020-02- Yes [id number] 1500mg 1,500 mg Univers 0.9 % sod 0-11 by IV ity of chloride 00:00: 05:59 [place]fusion [place] (VANCOMYCIN 00 :00 route Medical 1500 MG IN every 24 Branc h NS 500 ML) (twenty-fo 1.5 ur) hours gram/500 mL for 10 Soln days. NaCl 0.9% 2020-02- Yes [id number] 1000mg Infuse Univers (NS) PgBk 0-31 12-23 1,000 mg ity o f 50 mL with 00:00: 05:59 every 12 [place] ceFEPIme 1 00 :00 (twelve) Medic al gram SolR hours for Branc h 1,000 mg 10 days. vancomycin/ 2020-02- Yes [id number] 1500mg 1,500 mg Univers 0.9 % sod 0-31 11-11 by IV ity of chloride 00:00: 05:59 [place]fusion [place] (VANCOMYCIN 00 :00 route Medical 1500 MG IN every 24 Branc h NS 500 ML) (twenty-fo 1.5 ur) hours gram/500 mL for 10 Soln days. vancomycin 2020-02 Yes 1500mg 1,500 mg, Univers 1500 mg in 0-30 IV ity of NS 500 mL 17:30: Infusion, [place] IV 00 Q24H ABX, Medical Piggyback First dose Bran ch RTU 1,500 on Sat mg 12/11/20 at 1230, Until Discontinu ed, Administer over 90 Minutes
Reason for Anti-Infec tive: Empiric Therapy for Suspected Infection< br>Empiric Therapy Site: Blood
D uration of therapy: 7 days KCL 2020-02- No 40meq 40 mEq, Univers (KLOR-CON 0-29 10-30 Oral, ity of M20) tablet 23:30: 01:25 ONCE, 1 [place] 40 mEq 00 :00 dose, On Medical Fri Branch 12/10/20 at 1830, Routine tolvaptan 2020-02- No 15mg 15 mg, Unive rs (SAMSCA) 0- 10-30 Oral, ONCE ity of tablet 15 23:30: 01:25 NOW, 1 [place] mg 00 :00 dose, On Medical Fri Branch 12/10/20 at 1830, Routine
faculty member approving Restricted medication : AGLIECO, NICOLE G sodium 2020-02- No 500mg 0.5 g (500 Uni vers chloride 0-29 10-29 mg), Oral, ity of tablet 0.5 22:00: 22:30 TID MEALS, [place] g 00 :42 First dose Medical on Fri Branch 12/10/20 at 1700, Until Discontinu ed, Routine ceFEPIme 2020-02 Yes 1000mg 1,000 mg, Un matt (MAXIPIME) 0-29 IV ity of 1,000 mg in 17:45: Piggyback, [place] NaCl 0.9% 00 Q12H ABX, Medic al (NS) 50 mL First dose Bra nch MINI-BAG on Sun12/10/20 at 1245, Until Discontinu ed, Administer over 30 Minutes, 50 mL
Reas on for Anti-Infec tive: Documented Infection< br>Documen karly Infection Site: Skin / Soft Tissue
Duration of Therapy: Other (see Comments) potassium 2020-02 No 30mmol 30 mmol, U nivers phosphate 0- 10-29 IV ity of 30 mmol in 13:15: 14:16 [place], [place] NaCl 0.9% 00 :00 ONCE, 1 Medical (NS) 150 mL dose, On [facility] Sun12/10/20 at 0815 phosphorus 2020-02 No 250mg 1 tablet U nivers (K PHOS 0- 10-30 (250 mg), ity of NEUTRAL) 13:00: 15:49 Oral, QID, [place] tablet 1 00 :55 First dose Medic al tablet on Sun Branch 12/10/20 at 0800, Until Discontinu ed, Routine KCL 2020-02 No 40meq 40 mEq, Univers (KLOR-CON 0- 10-29 Oral, Q4H, ity of M20) tablet 13:00: 17:44 2 doses, [place] 40 mEq 00 :00 First dose Medical (after Branch last reorder) on Sun12/10/20 at 0800, Last dose on Sun12/10/20 at 1200, Routine aMILoride 2020-02 No 10mg 10 mg, Unive rs (MIDAMOR) 0 10-30 Oral, BID, ity of tablet 10 01:00: 15:49 First dose [place] mg 00 :55 on [facility] 12/09/20 Branch at 2000, Until Discontinu ed, Routine potassium 2020-02 No 15mmol 15 mmol, U nivers phosphate 0- 10-28 IV ity of 15 mmol in 15:45: 16:34 [place], [place] NaCl 0.9% 00 :00 ONCE, 1 Medical (NS) 150 mL dose, On [facility] piggyback [facility] 12/09/20 at 1045, 150 mL predniSONE 2020-02 Yes 30mg 30 mg, Unive rs (DELTASONE) 0-28 Oral, ity of tablet 30 15:00: DAILY, [place] mg 00 First dose Medical on [facility] 12/09/20 at 1000, Until Discontinu ed, Routine calcitrioL 2020-02 Yes .5ug 0.5 mcg, Uni vers (ROCALTROL) 0-28 Oral, ity of capsule 0.5 15:00: DAILY, [place] mcg 00 First dose Medical on [facility] 12/09/20 at 1000, Until Discontinu ed, Routine KCL 2020-02- No 40meq 40 mEq, Univers (KLOR-CON 12-09 Oral, Q4H, ity of M20) tablet 15:00: 16:35 2 doses, [place] 40 mEq 00 :00 First dose Medical (after Branch last modificati on) on [facility] 12/09/20 at 1000, Last dose on [facility] 12/09/20 at 1200, Routine hydrocortis 2020-02- No 60mg 60 mg, IV Univers one sod 12-09 Piggyback, ity o f succ 13:43: 14:47 DAILY, [place] (CORTEF) 60 13 :30 First dose Me dical mg in NaCl (after Branch 0.9% (NS) last piggyback modificati on) on [facility] 12/09/20 at 0900, Until Discontinu ed, Administer over 30 Minutes, 60 mL iopamidol 2020-02- No [id number] 120mL 120 mL, Univers (ISOVUE 12-08 Intravenou ity o f 370-500 mL) 17:23: 17:24 s, ONCE, 1 [place] injection 00 :00 dose, On Medica l 120 mL [facility] 12/08/20 at 1245, Routine KCL 2020-02- No 20meq 20 mEq, Univers (KLOR-CON 12-09 Oral, ity of M20) tablet 14:00: 14:47 DAILY, [place] 20 mEq 00 :30 First dose Medical on [facility] 12/08/20 at 0900, Until Discontinu ed, Routine hydrocortis 2020-02 No 60mg 60 mg, IV Univers one sod 0-27 10-28 Piggyback, ity o f succ 01:00: 13:43 Q12H, [place] (CORTEF) 60 00 :20 First dose Me dical mg in NaCl (after Branch 0.9% (NS) last piggyback modificati on) on Sun12/07/20 at 2000, Until Discontinu ed, Administer over 30 Minutes, 60 mL lidocaine 2020-02 Yes 5mL 5 mL, Univers 1% (PF) 0- Subcutaneo ity of (XYLOCAINE) 18:44: us, PRN, [place] injection 5 15 Starting Medi bernadine mL on [facility] 12/07/20 at 1344, Until Discontinu ed, Routine, Local anesthesia NaCl 0.9% 2020-02 Yes 10mL 10 mL, Univer s (NS) 0-26 Slow IV ity of injection 17:49: Push, PRN, [place] 10 mL 04 Starting Medical on Sun [place] 12/07/20 at 1249, Until Discontinu ed, Routine, line maintenanc e KCL 2020-02- No 20meq 20 mEq, Univers (KLOR-CON 0- 10- Oral, ity of M20) tablet 14:45: 13:52 ONCE, 1 [place] 20 mEq 00 :00 dose, On [facility] 12/07/20 at 0945, Routine diphenoxyla 2020-02 Yes 2{tbl} 2 tablet, Univers te-atropine 0-26 Oral, TID, it y of (LOMOTIL) 13:00: First dose [place] 2.5-0.025 00 (after Medical mg tablet 2 last Branch tablet modificati on) on Sun12/07/20 at 0800, Until Discontinu ed, Routine diphenoxyla 2020-02- No 1{tbl} 1 tablet, Univers te-atropine 0-26 10- Oral, ity of (LOMOTIL) 04:15: 03:27 ONCE, 1 [place] 2.5-0.025 00 :00 dose, On Medica l mg tablet 1 Mon Branch tablet 12/06/20 at 2315, Routine famotidine 2020-02 Yes 40mg 40 mg, Unive rs (PEPCID AC) 0-26 Oral, QHS, it y of tablet 40 02:00: First dose [place] mg 00 on [facility] Medical 12/06/20 Branch at 2100, Until Discontinu ed, Routine Nitrofurant 2020-02- No 100mg 100 mg, U nivers oin&Nit. 0-07 12- Oral, BID, ity of Macrocryst 01:00: 16:54 First dose [place] (MACROBID) 00 :09 on [facility] Medical 100 mg 12/06/20 Branch capsule 100 at 2000, mg Until Discontinu ed, Routine
Reason for Anti-Infec tive: Documented Infection< br>Documen karly Infection Site: Urine
D uration of Therapy: 7 days lactobacill 2020-02 Yes .5mg 0.5 mg, Uni vers us 0-25 Oral, TID, ity of acidophilus 19:00: First dose [place] tablet 0.5 00 on [facility] Medical mg 12/06/20 Branch at 1400, Until Discontinu ed, Routine diphenoxyla 2020-02- No 1{tbl} 1 tablet, Univers te-atropine 012-07 Oral, TID, i ty of (LOMOTIL) 19:00: 02:34 First dose [place] 2.5-0.025 00 :00 (after Medical mg tablet 1 last Branch tablet modificati on) on Sun12/06/20 at 1400, Until Discontinu ed, Routine vancomycin 2020-02 No 15mg/kg 1,250 mg Univers 1250 mg in 0-06 12- (rounded ity of NS 250 mL 18:30: 23:35 from 1,305 [place] RTU IV 00 :38 mg = 15 Medical Piggyback mg/kg ?87 Branc h 1,250 mg kg), IV Piggyback, Q12H ABX, First dose (after last modificati on) on [facility] 12/06/20 at 1330, Until Discontinu ed, Administer over 90 Minutes
Reason for Anti-Infec tive: Empiric Therapy for Suspected Infection< br>Empiric Therapy Site: Blood
D uration of therapy: 7 days metoprolol 2020-02 Yes 25mg 25 mg, Unive rs succinate 0-25 Oral, ity of XL (TOPROL 14:00: DAILY, [place] XL) tablet 00 First dose Med ical 25 mg on [facility] Branch 12/06/20 at 0900, Until Discontinu ed foLIC acid 2020-02 Yes 3mg 3 mg, Univer s (FOLATE) 0-25 Oral, ity of tablet 3 mg 14:00: DAILY, [place] 00 First dose Medical on [facility] Branch 12/06/20 at 0900, Until Discontinu ed, Routine diphenoxyla 2020-02- No 1{tbl} 1 tablet, Univers te-atropine 0-25 10-25 Oral, ity of (LOMOTIL) 14:00: 17:51 DAILY, [place] 2.5-0.025 00 :45 First dose Medi bernadine mg tablet 1 on [facility] tablet 12/06/20 at 0900, Until Discontinu ed, Routine gabapentin 2020-02 Yes 600mg 600 mg, Uni vers (NEURONTIN) 0-25 Oral, TID, it y of tablet 600 13:00: First dose [place] mg 00 on [facility] 12/06/20 Branch at 0800, Until Discontinu ed, Routine hydrocortis 2020-02 No 60mg 60 mg, IV Univers one sod 0-25 26 Piggyback, ity o f succ 11:00: 22:27 Q8H, First [place] (CORTEF) 60 00 :12 dose on Medic al mg in NaCl [facility] 0.9% (NS) 12/06/20 piggyback at 0600, Until Discontinu ed, Administer over 30 Minutes, 60 mL HYDROcodone 2020-02 Yes 1{tbl} 1 tablet, Univers -acetaminop 0-25 Oral, ity of hen (NORCO) 09:21: Q6HPRN, [facility] as 10-325 mg 08 Starting Medica l tablet 1 on [facility] tablet 12/06/20 at 0421, Until Discontinu ed, Routine, Pain (scale 7-10) alum-mag 2020-02 Yes 30mL 30 mL, Univers hydroxide-s 0-25 Oral, ity of imeth 09:20: Q6HPN, [place] (MAALOX 42 Starting Medical PLUS / on [facility] Branch MAG-AL 12/06/20 PLUS) at 0420, 200-200-20 Until mg/5 mL Discontinu suspension ed, 30 mL Routine, Indigestio n vancomycin 2020-02- No 15mg/kg 1,250 mg Univers 1250 mg in 0-25 10-25 (rounded ity of NS 250 mL 04:30: 16:56 from 1,305 [place] RTU IV 00 :46 mg = 15 Medical Piggyback mg/kg ?87 Branc h 1,250 mg kg), IV Piggyback, Q12H ABX, First dose on [place] 12/05/20 at 2330, Until Discontinu ed, Administer over 90 Minutes
Reason for Anti-Infec tive: Empiric Therapy for Suspected Infection< br>Empiric Therapy Site: Blood
D uration of therapy: 7 days heparin 2020-02 Yes 5000U 5,000 Univers (porcine) 0-25 Units, ity of injection 03:00: Subcutaneo [place] 5,000 Units 00 us, Q8H, Medi bernadine First dose Branch on [place] 12/05/20 at 2200, Until Discontinu ed, Routine busPIRone 2020-02 Yes 20mg 20 mg, Univer s (BUSPAR) 0-25 Oral, TID, ity o f tablet 20 02:30: First dose [place] mg 00 (after Medical last Branch modificati on) on [place] 12/05/20 at 2130, Until Discontinu ed, Routine morpHINE 2020-02- No 2mg 2 mg, Slow Un matt injection 2 0-25 10-25 IV Push, ity of mg 02:26: 09:22 Q4HPRN, [place] 54 :17 Starting Medical on [place] Branch 12/05/20 at 2126, Until 12/06/20 at 0422, Routine, breakthrou gh proCHLORper 2020-02 Yes 10mg 10 mg, Univ ers azine 0-25 Slow IV ity of (COMPAZINE) 02:25: Push, [place] injection 36 Q6HPRN, Medical 10 mg Starting Branch on [place] 12/05/20 at 2125, Until Discontinu ed, Routine, Nausea and Vomiting (N/V) LORazepam 2020-02 Yes 1mg 1 mg, Univers (ATIVAN) 0-25 Oral, ity of tablet 1 mg 02:21: QHSPRN, [place] 44 Starting Medical on [place] Branch 12/05/20 at 2121, Until Discontinu ed, Routine, Anxiety, Agitation, insomnia HYDROcodone 2020-02- No 7.5mg 7.5 mg, U nivers -acetaminop 0-25 10-25 Oral, ity of hen (HYCET) 02:21: 09:22 Q6HPRN, [place] 7.5-325 29 :17 Starting Medical mg/15 mL on [facility] solution 12/05/20 7.5 mg at 2120, Until 12/06/20 at 0422, Pain (scale 7-10) albuterol 2020-02 Yes 2{puff} 2 Puff, Un matt (VENTOLIN) 0-25 Inhalation ity of inhaler 2 02:20: , Q4HPRN, [place] Puff 03 Starting Medical on [facility] 12/05/20 at 2120, Until Discontinu ed, Routine, Wheezing, Shortness of Breath potassium 2020-02- No 10meq 10 mEq, IV Univers chloride in 0-25 10-25 Piggyback, i ty of water 10 02:00: 05:59 Q1H, 4 [place] mEq/100 mL 00 :00 doses, Medical RTU 10 mEq First dose Bra nch on [place] 12/05/20 at 2100, Last dose on [facility] 12/06/20 at 0000, Administer over 60 Minutes, 100 mL magnesium 2020-02- No 2g 2 g, IV Univ ers sulfate in 0-25 10-25 Piggyback, it y of water 2 02:00: 04:57 Q1H, 2 [place] gram/50 mL 00 :00 doses, Medical (4 %) First dose Branch infusion 2 on [facility] 12/05/20 at 2100, Last dose on [place] 12/05/20 at 2200, Routine calcium 2020-02- No 2g 2 g, IV Univer s gluconate 2 0-25 10-25 Infusion, it y of g in NaCl 01:15: 01:32 ONCE, 1 [place] 100 mL 00 :00 dose, On Medical (ISO-OSM) [facility] RTU IV 12/05/20 infusion 2 at 2014, g Routine potassium 2020-02- No 10meq 10 mEq, IV Univers chloride in 0-25 10-25 Piggyback, i ty of water 10 01:00: 03:07 Q1H, 4 [place] mEq/100 mL 00 :43 doses, Medical RTU 10 mEq First dose Bra nc on 12/05/20 at 2000, Last dose on 12/05/20 at 2300, Administer over 60 Minutes, 100 mL KCL 2020-02- No 40meq 40 mEq, Univers (KLOR-CON 0-25 10-25 Oral, Q1H, ity of M20) tablet 01:00: 02:59 2 doses, [place] 40 mEq 00 :00 First dose Medical on [place] Branch 12/05/20 at 1999, Last dose on 12/05/20 at 2100, Routine NaCl 0.9% 2020-02- No 1000mL at 150 Uni vers (NS) IV 0-24 10-26 mL/hr, ity of infusion 22:45: 20:37 Intravenou [place] 1,000 mL 00 :12 s, Medical CONTINUOUS Branch , Starting on [place] 12/05/20 at 1745, Until Sun12/07/20 at 1537, Routine piperacilli 2020-02- No 3.375g 3.375 g, Univers n-tazobacta 0-24 10-24 IV ity of m (ZOSYN) 21:45: 21:08 Piggyback, [place] 3.375 g in 00 :00 ONCE, 1 Medica l NaCl 0.9% dose, On Branch (NS) 100 mL Sun MINI-BAG 12/05/20 at 1645, Administer over 30 Minutes, 100 mL
Reas on for Anti-Infec tive: Empiric Therapy for Suspected Infection< br>Empiric Therapy Site: Blood
D uration of therapy: 72 hours NaCl 0.9% 2020-02- No 1000mL at 125 Uni vers (NS) IV 0-24 10-25 mL/hr, IV ity of infusion 21:30: 00:00 Infusion, [place] 1,000 mL 00 :54 CONTINUOUS Medic al , Starting Branch on [place] 12/05/20 at 1630, Until [place] 12/05/20 at 1900, Routine NaCl 0.9% 2020-02- No 1000mL at 999 Uni vers (NS) bolus 0-24 10-24 mL/hr, ity of infusion 21:30: 21:43 1,000 mL, [place] 1,000 mL 00 :00 IV Medical Infusion, Branch ONCE, 1 dose, On 12/05/20 at 1630, STAT ondansetron 2020-02 Yes 4mg 4 mg, Slow Univers (ZOFRAN 0-24 IV Push, ity of (PF)) 21:29: Q6HPRN, [place] injection 4 30 Starting Medi bernadine mg on [facility] 12/05/20 at 1629, Until Discontinu ed, Routine, Nausea and Vomiting (N/V) acetaminoph 2020-02 Yes 650mg 650 mg, Un matt en 0-24 Oral, ity of (TYLENOL) 21:29: Q6HPRN, [place] tablet 650 19 Starting Medic al mg on [facility] 12/05/20 at 1629, Until Discontinu ed, Routine, Pain (scale 1-3), Temp > 38.5 C dicyclomine 2020-02- No 20mg Take 20 mg Univers 20 mg 0-24 10-24 by mouth 3 ity of tablet 21:23: 00:00 (three) [place] 29 :00 times Medical daily. Branch erenumab-ao 2020-02- No inject Uni vers oe (AIMOVIG 0-24 10-24 under the it y of AUTOINJECTO 21:23: 00:00 [place] R) 140 29 :00 Medical mg/mL AtIn [place] hydrocortis 2020-02- No 100mg 100 mg, IV Univers one sod 0-24 10-24 Push, ity of succ 21:00: 20:23 ONCE, 1 [place] (CORTEF) 00 :00 dose, On Medical injection [facility] 100 mg 12/05/20 at 1600, Routine NaCl 0.9% 2020-02- No 30mL/kg at 999 Un matt (NS) bolus 0-24 10-24 mL/hr, ity of infusion 19:00: 19:44 2,448 [place] 2,448 [place] 00 :00 (30 mL/kg Medica l ?81.6 kg), Branch IV Infusion, ONCE, 1 dose, On 12/05/20 at 1400, STAT rifAMPin 2020-02- No 300mg Take 300 Uni vers 300 mg 0-20 10-31 mg by ity of capsule 00:00: 00:00 mouth 2 [place] 00 :00 (two) Medical times [place] daily. sulfamethox 2020-02- No 1{tbl} Take 1 U nivers azole-trime 0-20 10-31 tablet by it y of thoprim 00:00: 00:00 mouth 2 [place] 400-80 mg 00 :00 (two) Medical per tablet times [place] daily. AIMOVIG 0 Yes 140mg INJECT 140 Uni vers AUTOINJECTO 8-31 MG UNDER ity of R 140 mg/mL 00:00: [place] SKIN [place] AtIn 00 ONCE EVERY Medical MONTH. [place] AIMOVIG 0 Yes 140mg INJECT 140 Uni vers AUTOINJECTO 8-31 MG UNDER ity of R 140 mg/mL 00:00: THE [place]IN [place] AtIn 00 ONCE EVERY Medical MONTH. [place] AIMOVIG 0 Yes 140mg INJECT 140 Uni vers AUTOINJECTO 8-31 MG UNDER ity of R 140 mg/mL 00:00: THE SKIN [place] AtIn 00 ONCE EVERY Medical MONTH. [place] AIMOVIG 0 Yes 140mg INJECT 140 Uni vers AUTOINJECTO 8-31 MG UNDER ity of R 140 mg/mL 00:00: THE SKIN [place] AtIn 00 ONCE EVERY Medical MONTH. [place] AIMOVIG 0 Yes 140mg INJECT 140 Uni vers AUTOINJECTO 8-31 MG UNDER ity of R 140 mg/mL 00:00: THE SKIN [place] AtIn 00 ONCE EVERY Medical MONTH. [place] magnesium Yes 400mg 400 mg, Univ ers oxide 6-03 Oral, ity of (MAG-OX 14:00: DAILY, [place] 400) tablet 00 First dose Me dical 400 mg on Prerna [place] 07/15/20 at 0900, Until Discontinu ed, Routine busPIRone Yes 20mg 20 mg, Univer s (BUSPAR) 6-03 Oral, BID, ity o f tablet 20 01:00: First dose [place] mg 00 on Sun [facility] 07/14/20 at Branch 1999, Until Discontinu ed, Routine magnesium 0 Yes [id number] 400mg Take 400 [facility] oxide 420 6-03 mg by ity of mg Tab 00:00: mouth [place] 00 daily. Medical Branch magnesium 0 Yes [id number] 400mg Take 400 [facility] oxide 420 6-03 mg by ity of mg Tab 00:00: mouth [place] 00 daily. Medical Branch magnesium 2020-0 Yes [id number] 400mg Take 400 [facility] oxide 420 6-03 mg by ity of mg Tab 00:00: mouth [place] 00 daily. Medical Branch magnesium 2020-0 Yes [id number] 400mg Take 400 [facility] oxide 420 6-03 mg by ity of mg Tab 00:00: mouth [place] 00 daily. Medical Branch magnesium 2020-0 Yes [id number] 400mg Take 400 [facility] oxide 420 6-03 mg by ity of mg Tab 00:00: mouth [place] 00 daily. Medical Branch magnesium 2020-0 Yes [id number] 400mg Take 400 [facility] oxide 420 6-03 mg by ity of mg Tab 00:00: mouth [place] 00 daily. Medical Branch magnesium 2020-0 Yes [id number] 400mg Take 400 [facility] oxide 420 6-03 mg by ity of mg Tab 00:00: mouth [place] 00 daily. Medical Branch magnesium 2020-0 Yes [id number] 400mg Take 400 [facility] oxide 420 6-03 mg by ity of mg Tab 00:00: mouth [place] 00 daily. Medical Branch magnesium 2020-0 Yes [id number] 400mg Take 400 [facility] oxide 420 6-03 mg by ity of mg Tab 00:00: mouth [place] 00 daily. Medical Branch magnesium 2020-0 Yes [id number] 400mg Take 400 [facility] oxide 420 6-03 mg by ity of mg Tab 00:00: mouth [place] 00 daily. Medical Branch magnesium 2020-0 Yes [id number] 400mg Take 400 [facility] oxide 420 6-03 mg by ity of mg Tab 00:00: mouth [place] 00 daily. Medical Branch magnesium 2020-0 Yes [id number] 400mg Take 400 [facility] oxide 420 6-03 mg by ity of mg Tab 00:00: mouth [place] 00 daily. Medical Branch magnesium 2020-0 Yes [id number] 400mg Take 400 [facility] oxide 420 6-03 mg by ity of mg Tab 00:00: mouth [place] 00 daily. Medical Branch magnesium 2020-0 Yes [id number] 400mg Take 400 [facility] oxide 420 6-03 mg by ity of mg Tab 00:00: mouth [place] 00 daily. Medical Branch magnesium 1-0 1- No [id number] 400mg Take 400 [facility] oxide 420 6-03 10-24 mg by ity of mg Tab 00:00: 00:00 mouth [place] 00 :00 daily. Medical Branch metoprolol 1-0 Yes 25mg Take 25 mg U nivers succinate 6-02 by mouth ity of (TOPROL XL 23:15: daily. [place] ORAL) 16 Medical Branch inFLIXimab 1-0 Yes 840mg Inject 840 Univers (REMICADE) 6-02 mg ity of 100 mg 23:15: intravenou [place] injection 16 sly every Medic al 14 Branch (fourteen) days. dicyclomine 2021-0 Yes 20mg Take 20 mg Univers 20 mg 6-02 by mouth 3 ity of tablet 23:15: (three) [place] 16 times Medical daily. Branch erenumab-ao 2020-0 Yes inject Univ ers oe (AIMOVIG 6-02 under the ity of AUTOINJECTO 23:15: skin. [place] R) 140 16 Medical mg/mL AtIn Branch metoprolol 2020-0 Yes 25mg Take 25 mg U nivers succinate 6-02 by mouth ity of (TOPROL XL 23:15: daily. [place] ORAL) 16 Medical Branch inFLIXimab 1-0 Yes 840mg Inject 840 Univers (REMICADE) 6-02 mg ity of 100 mg 23:15: intravenou [place] injection 16 sly every Medic al 14 Branch (fourteen) days. dicyclomine 2021-0 Yes 20mg Take 20 mg Univers 20 mg 6-02 by mouth 3 ity of tablet 23:15: (three) [place] 16 times Medical daily. Branch erenumab-ao 2020-0 Yes inject Univ ers oe (AIMOVIG 6-02 under the ity of AUTOINJECTO 23:15: skin. [place] R) 140 16 Medical mg/mL AtIn Branch metoprolol 2021-0 Yes 25mg Take 25 mg U nivers succinate 6-02 by mouth ity of (TOPROL XL 23:15: daily. [place] ORAL) 16 Medical Branch inFLIXimab 2021-0 Yes 840mg Inject 840 Univers (REMICADE) 6-02 mg ity of 100 mg 23:15: intravenou [place] injection 16 sly every Medic al 14 Branch (fourteen) days. dicyclomine 2021-0 Yes 20mg Take 20 mg Univers 20 mg 6-02 by mouth 3 ity of tablet 23:15: (three) [place] 16 times Medical daily. Branch erenumab-ao 0 Yes inject Univ ers oe (AIMOVIG 6-02 under the ity of AUTOINJECTO 23:15: skin. [place] R) 140 16 Medical mg/mL AtIn Branch metoprolol 2020-0 Yes 25mg Take 25 mg U nivers succinate 6-02 by mouth ity of (TOPROL XL 23:15: daily. [place] ORAL) 16 Medical Branch inFLIXimab 2020-0 Yes 840mg Inject 840 Univers (REMICADE) 6-02 mg ity of 100 mg 23:15: intravenou [place] injection 16 sly every Medic al 14 Branch (fourteen) days. dicyclomine 2020-0 Yes 20mg Take 20 mg Univers 20 mg 6-02 by mouth 3 ity of tablet 23:15: (three) [place] 16 times Medical daily. Branch erenumab-ao 0 Yes inject Univ ers oe (AIMOVIG 6-02 under the ity of AUTOINJECTO 23:15: skin. [place] R) 140 16 Medical mg/mL AtIn Branch metoprolol 2020-0 Yes 25mg Take 25 mg U nivers succinate 6-02 by mouth ity of (TOPROL XL 23:15: daily. [place] ORAL) 16 Medical Branch inFLIXimab 2020-0 Yes 840mg Inject 840 Univers (REMICADE) 6-02 mg ity of 100 mg 23:15: intravenou [place] injection 16 sly every Medic al 14 Branch (fourteen) days. dicyclomine 2020-0 Yes 20mg Take 20 mg Univers 20 mg 6-02 by mouth 3 ity of tablet 23:15: (three) [place] 16 times Medical daily. Branch erenumab-ao 0 Yes inject Univ ers oe (AIMOVIG 6-02 under the ity of AUTOINJECTO 23:15: skin. [place] R) 140 16 Medical mg/mL AtIn Branch metoprolol 1-0 Yes 25mg Take 25 mg U nivers succinate 6-02 by mouth ity of (TOPROL XL 23:15: daily. [place] ORAL) 16 Medical Branch inFLIXimab 2020-0 Yes 840mg Inject 840 Univers (REMICADE) 6-02 mg ity of 100 mg 23:15: intravenou [place] injection 16 sly every Medic al 14 Branch (fourteen) days. dicyclomine 2021-0 Yes 20mg Take 20 mg Univers 20 mg 6-02 by mouth 3 ity of tablet 23:15: (three) [place] 16 times Medical daily. Branch erenumab-ao 0 Yes inject Univ ers oe (AIMOVIG 6-02 under the ity of AUTOINJECTO 23:15: skin. [place] R) 140 16 Medical mg/mL AtIn Branch metoprolol 2020-0 Yes 25mg Take 25 mg U nivers succinate 6-02 by mouth ity of (TOPROL XL 23:15: daily. [place] ORAL) 16 Medical Branch inFLIXimab 2020-0 Yes 840mg Inject 840 Univers (REMICADE) 6-02 mg ity of 100 mg 23:15: intravenou [place] injection 16 sly every Medic al 14 Branch (fourteen) days. dicyclomine 2020-0 Yes 20mg Take 20 mg Univers 20 mg 6-02 by mouth 3 ity of tablet 23:15: (three) [place] 16 times Medical daily. Branch erenumab-ao 0 Yes inject Univ ers oe (AIMOVIG 6-02 under the ity of AUTOINJECTO 23:15: skin. [place] R) 140 16 Medical mg/mL AtIn Branch metoprolol 2020-0 Yes 25mg Take 25 mg U nivers succinate 6-02 by mouth ity of (TOPROL XL 23:15: daily. [place] ORAL) 16 Medical Branch inFLIXimab 2020-0 Yes 840mg Inject 840 Univers (REMICADE) 6-02 mg ity of 100 mg 23:15: intravenou [place] injection 16 sly every Medic al 14 Branch (fourteen) days. dicyclomine 1-0 Yes 20mg Take 20 mg Univers 20 mg 6-02 by mouth 3 ity of tablet 23:15: (three) [place] 16 times Medical daily. Branch erenumab-ao 2020-0 Yes inject Univ ers oe (AIMOVIG 6-02 under the ity of AUTOINJECTO 23:15: skin. [place] R) 140 16 Medical mg/mL AtIn Branch metoprolol 1-0 Yes 25mg Take 25 mg U nivers succinate 6-02 by mouth ity of (TOPROL XL 23:15: daily. [place] ORAL) 16 Medical Branch inFLIXimab 2020-0 Yes 840mg Inject 840 Univers (REMICADE) 6-02 mg ity of 100 mg 23:15: intravenou [place] injection 16 sly every Medic al 14 Branch (fourteen) days. dicyclomine 2021-0 Yes 20mg Take 20 mg Univers 20 mg 6-02 by mouth 3 ity of tablet 23:15: (three) [place] 16 times Medical daily. Branch erenumab-ao 0 Yes inject Univ ers oe (AIMOVIG 6-02 under the ity of AUTOINJECTO 23:15: skin. [place] R) 140 16 Medical mg/mL AtIn Branch metoprolol 2020-0 Yes 25mg Take 25 mg U nivers succinate 6-02 by mouth ity of (TOPROL XL 23:15: daily. [place] ORAL) 16 Medical Branch inFLIXimab 2020-0 Yes 840mg Inject 840 Univers (REMICADE) 6-02 mg ity of 100 mg 23:15: intravenou [place] injection 16 sly every Medic al 14 Branch (fourteen) days. dicyclomine 1-0 Yes 20mg Take 20 mg Univers 20 mg 6-02 by mouth 3 ity of tablet 23:15: (three) [place] 16 times Medical daily. Branch erenumab-ao 0 Yes inject Univ ers oe (AIMOVIG 6-02 under the ity of AUTOINJECTO 23:15: skin. [place] R) 140 16 Medical mg/mL AtIn Branch metoprolol 2020-0 Yes 25mg Take 25 mg U nivers succinate 6-02 by mouth ity of (TOPROL XL 23:15: daily. [place] ORAL) 16 Medical Branch inFLIXimab 1-0 Yes 840mg Inject 840 Univers (REMICADE) 6-02 mg ity of 100 mg 23:15: intravenou [place] injection 16 sly every Medic al 14 Branch (fourteen) days. dicyclomine 2021-0 Yes 20mg Take 20 mg Univers 20 mg 6-02 by mouth 3 ity of tablet 23:15: (three) [place] 16 times Medical daily. Branch erenumab-ao 0 Yes inject Univ ers oe (AIMOVIG 6-02 under the ity of AUTOINJECTO 23:15: skin. [place] R) 140 16 Medical mg/mL AtIn Branch metoprolol 1-0 Yes 25mg Take 25 mg U nivers succinate 6-02 by mouth ity of (TOPROL XL 23:15: daily. [place] ORAL) 16 Medical Branch inFLIXimab 2020-0 Yes 840mg Inject 840 Univers (REMICADE) 6-02 mg ity of 100 mg 23:15: intravenou [place] injection 16 sly every Medic al 14 Branch (fourteen) days. dicyclomine 2020-0 Yes 20mg Take 20 mg Univers 20 mg 6-02 by mouth 3 ity of tablet 23:15: (three) [place] 16 times Medical daily. Branch erenumab-ao 0 Yes inject Univ ers oe (AIMOVIG 6-02 under the ity of AUTOINJECTO 23:15: skin. [place] R) 140 16 Medical mg/mL AtIn Branch LORazepam 0 Yes 2mg 2 mg, Univers (ATIVAN) 6-02 Oral, ity of tablet 2 mg 23:04: QHSPRN, 1 [place] 49 dose, Medical Starting Branch 07/14/20 at 1804, Until Discontinu ed, Routine, insomnia metoprolol 2020-0 Yes 25mg Take 25 mg U nivers succinate 6-02 by mouth ity of (TOPROL XL 18:15: daily. [place] ORAL) 16 Medical Branch inFLIXimab 2020-0 Yes 840mg Inject 840 Univers (REMICADE) 6-02 mg ity of 100 mg 18:15: intravenou [place] injection 16 sly every Medic al 14 Branch (fourteen) days. dicyclomine 2020-0 Yes 20mg Take 20 mg Univers 20 mg 6-02 by mouth 3 ity of tablet 18:15: (three) [place] 16 times Medical daily. Branch erenumab-ao Yes inject Univ ers oe (AIMOVIG 6-02 under the ity of AUTOINJECTO 18:15: skin. [place] R) 140 16 Medical mg/mL AtIn Branch metoprolol 2020-0 Yes 25mg Take 25 mg U nivers succinate 6-02 by mouth ity of (TOPROL XL 18:15: daily. [place] ORAL) 16 Medical Branch inFLIXimab 2020-0 Yes 840mg Inject 840 Univers (REMICADE) 6-02 mg ity of 100 mg 18:15: intravenou [place] injection 16 sly every Medic al 14 Branch (fourteen) days. dicyclomine 1-0 Yes 20mg Take 20 mg Univers 20 mg 6-02 by mouth 3 ity of tablet 18:15: (three) [place] 16 times Medical daily. Branch erenumab-ao Yes inject Univ ers oe (AIMOVIG 07-14 under the ity of AUTOINJECTO 18:15: skin. [place] R) 140 16 Medical mg/mL AtIn Branch metoprolol Yes 25mg Take 25 mg U nivers succinate 602 by mouth ity of (TOPROL XL 18:15: daily. [place] ORAL) 16 Medical Branch inFLIXimab Yes 840mg Inject 840 Univers (REMICADE) 6-02 mg ity of 100 mg 18:15: intravenou [place] injection 16 sly every Medic al 14 Branch (fourteen) days. dicyclomine Yes 20mg Take 20 mg Univers 20 mg -02 by mouth 3 ity of tablet 18:15: (three) [place] 16 times Medical daily. Branch erenumab-ao Yes inject Univ ers oe (AIMOVIG 07-14 under the ity of AUTOINJECTO 18:15: skin. [place] R) 140 16 Medical mg/mL AtIn Branch ondansetron Yes 4mg 4 mg, Slow Univers (ZOFRAN 07-14 IV Push, ity of (PF)) 17:21: Q8HPRN, [place] injection 4 18 Starting Medi bernadine mg Sun07/14/20 Branch at 1221, Until Discontinu ed, Routine, Nausea and Vomiting (N/V) metoclopram Yes 10mg 10 mg, Univ ers marilyn HCl 07-14 Slow IV ity of (REGLAN) 17:00: Push, Q6H, [place] injection 00 First dose Medi bernadine 10 mg (after Branch last reorder) on Sun07/14/20 at 1200, Until Discontinu ed, GIGI ketorolac No 15mg 15 mg, Unive rs (TORADOL) 07-14 Slow IV ity of injection 17:00: 16:59 Push, Q6H, [place] 15 mg 00 :00 4 doses, Medical First dose Branch on Sun07/14/20 at 1200, Last dose on Sun07/15/20 at 0600, Routine
faculty member approving Restricted medication : CHRISTINA ROQUE Sliding Yes Subcutaneo Univ ers Scale 07-14 us, TID ity of Insulin - 14:15: MEALS+HS, [place] Lispro 00 First dose Medical (HumaLOG) + on Sun Branch Fsbg 07/14/20 at Testing 0915, Until Discontinu ed, Routine predniSONE 2020-0 Yes 80mg 80 mg, Unive rs (DELTASONE) 07-14 Oral, ity of tablet 80 14:15: DAILY, [place] mg 00 First dose Medical on Sun Branch 07/14/20 at 0915, Until Discontinu ed, Routine diphenhydrA Yes 25mg 25 mg, Univ ers MINE 07-14 Slow IV ity of (BENADRYL) 14:15: Push, Q6H, [place] injection 00 First dose Medi bernadine 25 mg (after Branch last reorder) on Sun07/14/20 at 0915, Until Discontinu ed, GIGI pantoprazol Yes 40mg 40 mg, Univ ers e 07-14 Oral, ity of (PROTONIX) 14:00: DAILY, [place] EC tablet 00 First dose Medi bernadine 40 mg on Sun Branch 07/14/20 at 0900, Until Discontinu ed, Routine azaTHIOprin Yes 150mg 150 mg, Un matt e (IMURAN) 07-14 Oral, ity of tablet 150 14:00: DAILY, [place] mg 00 First dose Medical on Sun Branch 07/14/20 at 0900, Until Discontinu ed, Routine losartan Yes 50mg 50 mg, Univers (COZAAR) 07-14 Oral, ity of tablet 50 14:00: DAILY, [place] mg 00 First dose Medical on Sun Branch 07/14/20 at 0900, Until Discontinu ed, Routine metoprolol Yes 25mg 25 mg, Unive rs succinate 07-14 Oral, ity of XL (TOPROL 14:00: DAILY, [place] XL) tablet 00 First dose Med ical 25 mg on Sun Branch 07/14/20 at 0900, Until Discontinu ed heparin 0 Yes 5000U 5,000 Univers (porcine) 07-14 Units, ity of injection 13:00: Subcutaneo [place] 5,000 Units 00 us, Q12H, Med ical First dose Branch on Sun07/14/20 at 0800, Until Discontinu ed, Routine gabapentin Yes 600mg 600 mg, Uni vers (NEURONTIN) 07-14 Oral, TID, it y of tablet 600 13:00: First dose [place] mg 00 on Sun Medical 07/14/20 at Branch 0800, Until Discontinu ed, Routine ketorolac 2020- No 15mg 15 mg, Unive rs (TORADOL) 07-14 Slow IV ity of injection 11:15: 13:07 Push, [place] 15 mg 00 :00 ONCE, 1 Medical dose, Sun Branch 07/14/20 at 0615, Routine
faculty member approving Restricted medication : JUDE CHRISTINA magnesium 2020- No 2g 2 g, IV Univ ers sulfate in 07-14 Piggyback, it y of water 2 11:15: 15:20 ONCE, 1 [place] gram/50 mL 00 :00 dose, Sun [facility] bernadine (4 %) 07/14/20 at Branch infusion 2 0615, g Routine NaCl 0.9% Yes 1000mL at 50 Unive rs (NS) IV 602 mL/hr, IV ity of infusion 10:15: Infusion, [place] 1,000 mL 00 CONTINUOUS Medic al , Starting Branch [facility] 07/14/20 at 0515, Until Discontinu ed, Routine acetaminoph Yes 650mg 650 mg, Un matt en 07-14 Oral, ity of (TYLENOL) 10:11: Q6HPRN, [place] tablet 650 51 Starting Medic al mg [facility] 07/14/20 Branch at 0511, Until Discontinu ed, Routine, Pain (scale 4-6) docusate Yes 100mg 100 mg, Unive rs (COLACE) 07-14 Oral, ity of capsule 100 10:11: QDAILYPRN, [place] mg 50 Starting Medical [facility] 07/14/20 Branch at 0511, Until Discontinu ed, Routine, Constipati on diphenhydrA 2020- No 25mg 25 mg, Uni vers MINE 07-14 Slow IV ity of (BENADRYL) 01:00: 09:39 Push, [place] injection 00 :00 ONCE, 1 Medical 25 mg dose, [facility] 07/13/20 at 1999, STAT metoclopram 2020- No 10mg 10 mg, Uni vers marilyn HCl 07-14 Slow IV ity of (REGLAN) 01:00: 09:39 Push, [place] injection 00 :00 ONCE, 1 Medical 10 mg dose, [facility] 07/13/20 at 1999, GIGI amitriptyli Yes [id number] 25mg Take 1 Univers ne 25 mg 6-02 tablet by ity of tablet 00:00: mouth at [place] 00 bedtime. Medical Branch riboflavin, Yes [id number] 400mg Take 400 Univers vitamin B2, 6-02 mg by ity of 400 mg Tab 00:00: mouth [place] 00 daily. Medical Branch amitriptyli Yes [id number] 25mg Take 1 Univers ne 25 mg 6-02 tablet by ity of tablet 00:00: mouth at [place] 00 bedtime. Medical Branch riboflavin, Yes [id number] 400mg Take 400 Univers vitamin B2, 6-02 mg by ity of 400 mg Tab 00:00: mouth [place] 00 daily. Medical Branch amitriptyli Yes [id number] 25mg Take 1 Univers ne 25 mg 6-02 tablet by ity of tablet 00:00: mouth at [place] bedtime. Medical Branch riboflavin, Yes [id number] 400mg Take 400 Univers vitamin B2, 6-02 mg by ity of 400 mg Tab 00:00: mouth [place] 00 daily. Medical Branch amitriptyli Yes [id number] 25mg Take 1 Univers ne 25 mg 6-02 tablet by ity of tablet 00:00: mouth at [place] [address] bedtime. Medical Branch riboflavin, 0 Yes [id number] 400mg Take 400 Univers vitamin B2, 6-02 mg by ity of 400 mg Tab 00:00: mouth [place] 00 daily. Medical Branch amitriptyli Yes [id number] 25mg Take 1 Univers ne 25 mg 6-02 tablet by ity of tablet 00:00: mouth at [place] [address] bedtime. Medical Branch riboflavin, Yes [id number] 400mg Take 400 Univers vitamin B2, 6-02 mg by ity of 400 mg Tab 00:00: mouth [place] 00 daily. Medical Branch amitriptyli Yes [id number] 25mg Take 1 Univers ne 25 mg 6-02 tablet by ity of tablet 00:00: mouth at [place] bedtime. Medical Branch riboflavin, Yes [id number] 400mg Take 400 Univers vitamin B2, 6-02 mg by ity of 400 mg Tab 00:00: mouth [place] 00 daily. Medical Branch amitriptyli Yes [id number] 25mg Take 1 Univers ne 25 mg 6-02 tablet by ity of tablet 00:00: mouth at [place] bedtime. Medical Branch riboflavin, Yes [id number] 400mg Take 400 Univers vitamin B2, 6-02 mg by ity of 400 mg Tab 00:00: mouth 00 daily. Medical Branch amitriptyli Yes [id number] 25mg Take 1 Univers ne 25 mg 6-02 tablet by ity of tablet 00:00: mouth at [place] bedtime. Medical Branch riboflavin, Yes [id number] 400mg Take 400 Univers vitamin B2, 6-02 mg by ity of 400 mg Tab 00:00: mouth daily. Medical Branch amitriptyli Yes [id number] 25mg Take 1 Univers ne 25 mg 6-02 tablet by ity of tablet 00:00: mouth at [place] bedtime. Medical Branch riboflavin, Yes [id number] 400mg Take 400 Univers vitamin B2, 6-02 mg by ity of 400 mg Tab 00:00: mouth daily. Medical Branch amitriptyli Yes [id number] 25mg Take 1 Univers ne 25 mg 6-02 tablet by ity of tablet 00:00: mouth at [place] bedtime. Medical Branch riboflavin, Yes [id number] 400mg Take 400 Univers vitamin B2, 6-02 mg by ity of 400 mg Tab 00:00: mouth 00 daily. Medical Branch amitriptyli Yes [id number] 25mg Take 1 Univers ne 25 mg 6-02 tablet by ity of tablet 00:00: mouth at [place] bedtime. Medical Branch riboflavin, Yes [id number] 400mg Take 400 Univers vitamin B2, 6-02 mg by ity of 400 mg Tab 00:00: mouth [place] 00 daily. Medical Branch amitriptyli Yes [id number] 25mg Take 1 Univers ne 25 mg 6-02 tablet by ity of tablet 00:00: mouth at [place] 00 bedtime. Medical Branch riboflavin, Yes [id number] 400mg Take 400 Univers vitamin B2, 6-02 mg by ity of 400 mg Tab 00:00: mouth [place] 00 daily. Medical Branch amitriptyli Yes [id number] 25mg Take 1 Univers ne 25 mg 6-02 tablet by ity of tablet 00:00: mouth at [place] 00 bedtime. Medical Branch riboflavin, Yes [id number] 400mg Take 400 Univers vitamin B2, 6-02 mg by ity of 400 mg Tab 00:00: mouth [place] 00 daily. Medical Branch amitriptyli Yes [id number] 25mg Take 1 Univers ne 25 mg 6-02 tablet by ity of tablet 00:00: mouth at [place] 00 bedtime. Medical Branch riboflavin, Yes [id number] 400mg Take 400 Univers vitamin B2, 6-02 mg by ity of 400 mg Tab 00:00: mouth [place] 00 daily. Medical Branch amitriptyli 2020- No [id number] 25mg Take 1 Univers ne 25 mg 6-02 10-24 tablet by ity o f tablet 00:00: 00:00 mouth at [place] 00 :00 bedtime. Medical Branch riboflavin, 2020- No [id number] 400mg Take 400 Univers vitamin B2, 6-02 10-24 mg by ity of 400 mg Tab 00:00: 00:00 mouth [place] 00 :00 daily. Medical Branch metoprolol 2020- No 5mg 5 mg, Slow Univers (LOPRESSOR) 07-07- IV Push, ity of injection 5 04:15: 03:20 ONCE, 1 [place] mg 00 :00 dose, Tue Medical 07/06/20 at Branch 2315, GIGI ondansetron 2020- No 4mg 4 mg, Slow Univers (ZOFRAN -07 07-26 IV Push, ity of (PF)) 04:15: 03:20 ONCE, 1 [place] injection 4 00 :00 dose, Tue Med ical mg 07/06/20 at [place] [id number], GIGI morpHINE 2020- No 4mg 4 mg, Slow Un matt injection 4 07-07 IV Push, ity of mg 04:15: 03:20 ONCE, 1 [place] 00 :00 dose, [facility] 07/06/20 at Branch 2315, STAT LORazepam 2020- No 2mg 2 mg, Univer s (ATIVAN) 07-07 Intramuscu ity of injection 2 03:30: 02:26 lar, ONCE, [place] mg 00 :00 1 dose, Medical [facility] 07/06/20 at 2230, STAT cloNIDine 2020- No .2mg 0.2 mg, Univ ers (CATAPRES) 07-07 Oral, ity of tablet 0.2 03:00: 01:58 ONCE, 1 [place] mg 00 :00 dose, [facility] 07/06/20 at Branch 2200, STAT ondansetron 2020- No 4mg 4 mg, Univ ers (ZOFRAN-ODT 07-07 Oral, ity of ) 02:00: 01:10 ONCE, 1 [place] disintegrat 00 :00 dose, [facility] Med ical ing tablet 07/06/20 at [facility] 4 mg 2100, Routine butorphanol 2020- No 2mg 2 mg, Univ ers (STADOL) 07-07 Intramuscu ity of injection 2 02:00: 01:10 lar, ONCE [place] mg 00 :00 NOW, 1 Medical dose, [facility] 07/06/20 at 2100, Routine ondansetron 0 Yes [id number] 4mg Take 1 Univers (ZOFRAN) 4 5-25 tablet by ity of mg tablet 00:00: mouth [place] 00 every 8 Medical (eight) Branch hours as needed for Nausea and Vomiting (N/V). ondansetron 2020-0 Yes [id number] 4mg Take 1 Univers (ZOFRAN) 4 5-25 tablet by ity of mg tablet 00:00: mouth [place] 00 every 8 Medical (eight) Branch hours as needed for Nausea and Vomiting (N/V). ondansetron 0 Yes [id number] 4mg Take 1 Univers (ZOFRAN) 4 5-25 tablet by ity of mg tablet 00:00: mouth [place] 00 every 8 Medical (eight) Branch hours as needed for Nausea and Vomiting (N/V). ondansetron 2021-0 Yes [id number] 4mg Take 1 Univers (ZOFRAN) 4 5-25 tablet by ity of mg tablet 00:00: mouth [place] 00 every 8 Medical (eight) Branch hours as needed for Nausea and Vomiting (N/V). ondansetron 2020-0 Yes [id number] 4mg Take 1 Univers (ZOFRAN) 4 5-25 tablet by ity of mg tablet 00:00: mouth [place] 00 every 8 Medical (eight) Branch hours as needed for Nausea and Vomiting (N/V). ondansetron 2020-0 Yes [id number] 4mg Take 1 Univers (ZOFRAN) 4 5-25 tablet by ity of mg tablet 00:00: mouth [place] 00 every 8 Medical (eight) Branch hours as needed for Nausea and Vomiting (N/V). ondansetron 2020-0 Yes [id number] 4mg Take 1 Univers (ZOFRAN) 4 5-25 tablet by ity of mg tablet 00:00: mouth [place] 00 every 8 Medical (eight) Branch hours as needed for Nausea and Vomiting (N/V). ondansetron 2020-0 Yes [id number] 4mg Take 1 Univers (ZOFRAN) 4 5-25 tablet by ity of mg tablet 00:00: mouth [place] 00 every 8 Medical (eight) Branch hours as needed for Nausea and Vomiting (N/V). ondansetron 1-0 Yes [id number] 4mg Take 1 Univers (ZOFRAN) 4 5-25 tablet by ity of mg tablet 00:00: mouth [place] 00 every 8 Medical (eight) Branch hours as needed for Nausea and Vomiting (N/V). ondansetron 2021-0 Yes [id number] 4mg Take 1 Univers (ZOFRAN) 4 5-25 tablet by ity of mg tablet 00:00: mouth [place] 00 every 8 Medical (eight) Branch hours as needed for Nausea and Vomiting (N/V). ondansetron 2021-0 Yes [id number] 4mg Take 1 [facility] (ZOFRAN) 4 5-25 tablet by ity of mg tablet 00:00: mouth [place] 00 every 8 Medical (eight) Branch hours as needed for Nausea and Vomiting (N/V). ondansetron 2020-0 Yes [id number] 4mg Take 1 [facility] (ZOFRAN) 4 5-25 tablet by ity of mg tablet 00:00: mouth [place] 00 every 8 Medical (eight) Branch hours as needed for Nausea and Vomiting (N/V). ondansetron 2020-0 Yes [id number] 4mg Take 1 [facility] (ZOFRAN) 4 5-25 tablet by ity of mg tablet 00:00: mouth [place] 00 every 8 Medical (eight) Branch hours as needed for Nausea and Vomiting (N/V). ondansetron 2020-0 Yes [id number] 4mg Take 1 [facility] (ZOFRAN) 4 5-25 tablet by ity of mg tablet 00:00: mouth [place] 00 every 8 Medical (eight) Branch hours as needed for Nausea and Vomiting (N/V). ondansetron 2020-0 Yes [id number] 4mg Take 1 [facility] (ZOFRAN) 4 5-25 tablet by ity of mg tablet 00:00: mouth [place] 00 every 8 Medical (eight) Branch hours as needed for Nausea and Vomiting (N/V). ondansetron 2020-0 Yes [id number] 4mg Take 1 [facility] (ZOFRAN) 4 5-25 tablet by ity of mg tablet 00:00: mouth [place] 00 every 8 Medical (eight) Branch hours as needed for Nausea and Vomiting (N/V). ondansetron 2020-0 Yes [id number] 4mg Take 1 [facility] (ZOFRAN) 4 5-25 tablet by ity of mg tablet 00:00: mouth [place] 00 every 8 Medical (eight) Branch hours as needed for Nausea and Vomiting (N/V). ondansetron 2020-0 Yes [id number] 4mg Take 1 [facility] (ZOFRAN) 4 5-25 tablet by ity of mg tablet 00:00: mouth [place] 00 every 8 Medical (eight) Branch hours as needed for Nausea and Vomiting (N/V). ondansetron 2020-0 Yes [id number] 4mg Take 1 [facility] (ZOFRAN) 4 5-25 tablet by ity of mg tablet 00:00: mouth [place] 00 every 8 Medical (eight) Branch hours as needed for Nausea and Vomiting (N/V). ondansetron Yes [id number] 4mg Take 1 [facility] (ZOFRAN) 4 5-25 tablet by ity of mg tablet 00:00: mouth [place] 00 every 8 Medical (eight) Branch hours as needed for Nausea and Vomiting (N/V). ondansetron Yes [id number] 4mg Take 1 [facility] (ZOFRAN) 4 5-25 tablet by ity of mg tablet 00:00: mouth [place] 00 every 8 Medical (eight) Branch hours as needed for Nausea and Vomiting (N/V). ondansetron 2020- No [id number] 4mg Take 1 [facility] (ZOFRAN) 4 5-25 10-24 tablet by ity of mg tablet 00:00: 00:00 mouth [place] 00 :00 every 8 Medical (eight) Branch hours as needed for Nausea and Vomiting (N/V). butalbital- 2020- No 4647 1{capsu Take 1 [facility] aspirin-caf 5-25 06-02 le} capsule by i ty of feine-codei 00:00: 04:59 mouth [place] ne 00 :00 every 4 Medical (FIORINAL-C (four) Branch ODEINE #3) hours as per capsule needed for Pain for up to 7 days. Indication s: acute pain butalbital- 2020- No 4647 1{capsu Take 1 [facility] aspirin-caf 5-25 06-02 le} capsule by i ty of feine-codei 00:00: 04:59 mouth [place] ne 00 :00 every 4 Medical (FIORINAL-C (four) Branch ODEINE #3) hours as per capsule needed for Pain for up to 7 days. Indication s: acute pain butalbital- 2020- No 4647 1{capsu Take 1 [facility] aspirin-caf 5-25 06-02 le} capsule by i ty of feine-codei 00:00: 04:59 mouth [place] ne 00 :00 every 4 Medical (FIORINAL-C (four) Branch ODEINE #3) hours as per capsule needed for Pain for up to 7 days. Indication s: acute pain butalbital- 2020- No 4647 1{capsu Take 1 [facility] aspirin-caf 5-25 06-02 le} capsule by i ty of feine-codei 00:00: 04:59 mouth [place] ne 00 :00 every 4 Medical (FIORINAL-C (four) Branch ODEINE #3) hours as per capsule needed for Pain for up to 7 days. Indication s: acute pain butalbital- 2020- No 4647 1{capsu Take 1 [facility] aspirin-caf 5-25 06-02 le} capsule by i ty of feine-codei 00:00: 04:59 mouth [place] ne 00 :00 every 4 Medical (FIORINAL-C (four) Branch ODEINE #3) hours as per capsule needed for Pain for up to 7 days. Indication s: acute pain butalbital- 2020- No 4647 1{capsu Take 1 [facility] aspirin-caf 5-25 06-02 le} capsule by i ty of feine-codei 00:00: 04:59 mouth [place] ne 00 :00 every 4 Medical (FIORINAL-C (four) Branch ODEINE #3) hours as per capsule needed for Pain for up to 7 days. Indication s: acute pain butalbital- 2020- No 4647 1{capsu Take 1 [facility] aspirin-caf 5-25 06-02 le} capsule by i ty of feine-codei 00:00: 00:00 mouth [place] ne 00 :00 every 4 Medical (FIORINAL-C (four) Branch ODEINE #3) hours as per capsule needed for Pain for up to 7 days. Indication s: acute pain butorphanol 2020- No 1mg 1 mg, IV U nivers (STADOL) 07-04 Push, ity of injection 1 21:15: 20:28 ONCE, 1 [place] mg 00 :00 dose, [facility] 07/04/20 at Branch 1615, Routine proMETHazin 2020- No 25mg 25 mg, IV [facility] e 07-04 Piggyback, ity of (PHENERGAN) 21:15: 21:15 ONCE, 1 [place] 25 mg in 00 :00 dose, [facility] NaCl 0.9% 07/04/20 at Bran ch (NS) 50 mL 1615, 50 piggyback mL butorphanol No 1mg 1 mg, IV U nivers (STADOL) 07-04 Push, ity of injection 1 19:30: 19:00 ONCE, 1 [place] mg 00 :00 dose, [facility] 07/04/20 at Branch 1430, Routine LORazepam 2020- No 1mg 1 mg, Slow U nivers (ATIVAN) 07-04 IV Push, ity of injection 1 19:30: 19:00 ONCE, 1 [place] mg 00 :00 dose, [facility] 07/04/20 at Branch 1430, STAT NaCl 0.9% 2020- No 1000mL at 999 Uni vers (NS) IV 07-04 mL/hr, IV ity of infusion 19:30: 20:53 Infusion, [place] 1,000 mL 00 :00 ONCE, 1 Medical dose, [facility] 07/04/20 at 1430, Routine dexamethaso No 10mg 10 mg, IV Univers ne 07-04 Push, ity of (DECADRON 19:30: 19:02 ONCE, 1 [place] PHOSPHATE[place] 00 :00 dose, [facility] bernadine injection 07/04/20 at Bran ch 10 mg 1430, STAT butalbital- 2020- No 2{tbl} 2 tablet, [facility] acetaminoph 07-04 Oral, ity of en-caff 19:30: 18:40 ONCE, 1 [place] (ESGIC) 00 :00 dose, [facility] 50-325-40 07/04/20 at Bran ch mg tablet 2 1430, tablet Routine butalbital- Yes [id number] 1{tbl} Take 1 [facility] acetaminoph 5-23 tablet by ity of en-caff 00:00: mouth [place] 50-325-40 00 every 6 Medical mg tablet (six) Branch hours as needed for Pain (scale 7-10). butalbital- Yes [id number] 1{tbl} Take 1 [facility] acetaminoph 5-23 tablet by ity of en-caff 00:00: mouth [place] 50-325-40 00 every 6 Medical mg tablet (six) Branch hours as needed for Pain (scale 7-10). butalbital- Yes [id number] 1{tbl} Take 1 [facility] acetaminoph 5-23 tablet by ity of en-caff 00:00: mouth [place] 50-325-40 00 every 6 Medical mg tablet (six) Branch hours as needed for Pain (scale 7-10). butalbital- Yes [id number] 1{tbl} Take 1 [facility] acetaminoph 5-23 tablet by ity of en-caff 00:00: mouth [place] 50-325-40 00 every 6 Medical mg tablet (six) Branch hours as needed for Pain (scale 7-10). butalbital- Yes [id number] 1{tbl} Take 1 [facility] acetaminoph 5-23 tablet by ity of en-caff 00:00: mouth [place] 50-325-40 00 every 6 Medical mg tablet (six) Branch hours as needed for Pain (scale 7-10). butalbital Yes [id number] 1{tbl} Take 1 [facility] acetaminoph 5-23 tablet by ity of en-caff 00:00: mouth [place] 50-325-40 00 every 6 Medical mg tablet (six) Branch hours as needed for Pain (scale 7-10). butalbital Yes [id number] 1{tbl} Take 1 [facility] acetaminoph 5-23 tablet by ity of en-caff 00:00: mouth [place] 50-325-40 00 every 6 Medical mg tablet (six) Branch hours as needed for Pain (scale 7-10). butalbital Yes [id number] 1{tbl} Take 1 [facility] acetaminoph 5-23 tablet by ity of en-caff 00:00: mouth [place] 50-325-40 00 every 6 Medical mg tablet (six) Branch hours as needed for Pain (scale 7-10). butalbital- Yes [id number] 1{tbl} Take 1 [facility] acetaminoph 5-23 tablet by ity of en-caff 00:00: mouth [place] 50-325-40 00 every 6 Medical mg tablet (six) Branch hours as needed for Pain (scale 7-10). butalbital- Yes [id number] 1{tbl} Take 1 [facility] acetaminoph 5-23 tablet by ity of en-caff 00:00: mouth [place] 50-325-40 00 every 6 Medical mg tablet (six) Branch hours as needed for Pain (scale 7-10). butalbital- Yes [id number] 1{tbl} Take 1 [facility] acetaminoph 5-23 tablet by ity of en-caff 00:00: mouth [place] 50-325-40 00 every 6 Medical mg tablet (six) Branch hours as needed for Pain (scale 7-10). butalbital- Yes [id number] 1{tbl} Take 1 [facility] acetaminoph 5-23 tablet by ity of en-caff 00:00: mouth [place] 50-325-40 00 every 6 Medical mg tablet (six) Branch hours as needed for Pain (scale 7-10). butalbital- Yes [id number] 1{tbl} Take 1 [facility] acetaminoph 5-23 tablet by ity of en-caff 00:00: mouth [place] 50-325-40 00 every 6 Medical mg tablet (six) Branch hours as needed for Pain (scale 7-10). butalbital- Yes [id number] 1{tbl} Take 1 [facility] acetaminoph 5-23 tablet by ity of en-caff 00:00: mouth [place] 50-325-40 00 every 6 Medical mg tablet (six) Branch hours as needed for Pain (scale 7-10). butalbital- Yes [id number] 1{tbl} Take 1 [facility] acetaminoph 5-23 tablet by ity of en-caff 00:00: mouth [place] 50-325-40 00 every 6 Medical mg tablet (six) Branch hours as needed for Pain (scale 7-10). butalbital- Yes [id number] 1{tbl} Take 1 [facility] acetaminoph 5-23 tablet by ity of en-caff 00:00: mouth [place] 50-325-40 00 every 6 Medical mg tablet (six) Branch hours as needed for Pain (scale 7-10). butalbital- Yes [id number] 1{tbl} Take 1 [facility] acetaminoph 5-23 tablet by ity of en-caff 00:00: mouth [place] 50-325-40 00 every 6 Medical mg tablet (six) Branch hours as needed for Pain (scale 7-10). butalbital- Yes [id number] 1{tbl} Take 1 [facility] acetaminoph 5-23 tablet by ity of en-caff 00:00: mouth [place] 50-325-40 00 every 6 Medical mg tablet (six) Branch hours as needed for Pain (scale 7-10). butalbital- Yes [id number] 1{tbl} Take 1 [facility] acetaminoph 5-23 tablet by ity of en-caff 00:00: mouth [place] 50-325-40 00 every 6 Medical mg tablet (six) Branch hours as needed for Pain (scale 7-10). butalbital- Yes [id number] 1{tbl} Take 1 [facility] acetaminoph 5-23 tablet by ity of en-caff 00:00: mouth [place] 50-325-40 00 every 6 Medical mg tablet (six) Branch hours as needed for Pain (scale 7-10). butalbital- Yes [id number] 1{tbl} Take 1 [facility] acetaminoph 5-23 tablet by ity of en-caff 00:00: mouth [place] 50-325-40 00 every 6 Medical mg tablet (six) Branch hours as needed for Pain (scale 7-10). butalbital- Yes [id number] 1{tbl} Take 1 [facility] acetaminoph 5-23 tablet by ity of en-caff 00:00: mouth [place] 50-325-40 00 every 6 Medical mg tablet (six) Branch hours as needed for Pain (scale 7-10). butalbital- No [id number] 1{tbl} Take 1 [facility] acetaminoph 5-23 10-24 tablet by it y of en-caff 00:00: 00:00 mouth [place] 50-325-40 00 :00 every 6 Medical mg tablet (six) Branch hours as needed for Pain (scale 7-10). busPIRone 2021-0 Yes 20mg 20 mg, Univer s (BUSPAR) 5-18 Oral, TID, ity o f tablet 20 01:00: First dose [place] mg 00 (after Medical last Branch modificati on) on Sun06/28/20 at 1999, Until Discontinu ed, Routine gabapentin 0 Yes 600mg 600 mg, Uni vers (NEURONTIN) 5-18 Oral, TID, it y of tablet 600 01:00: First dose [place] mg 00 (after Medical last Branch modificati on) on Sun06/28/20 at 1999, Until Discontinu ed, Routine inFLIXimab 0 Yes 840mg Inject 840 [facility] (REMICADE) 5-18 mg ity of 100 mg 00:16: intravenou [place] injection 46 sly every Medic al 14 Branch (fourteen) days. dicyclomine 2020-0 Yes 20mg Take 20 mg [facility] 20 mg 5-18 by mouth 3 ity of tablet 00:16: (three) [place] 46 times Medical daily. Branch erenumab-ao Yes inject Univ ers oe (AIMOVIG 5-18 under the ity of AUTOINJECTO 00:16: skin. [place] R) 140 46 Medical mg/mL AtIn Branch metoprolol 0 Yes 25mg Take 25 mg U nivers succinate 5-18 by mouth ity of (TOPROL XL 00:16: daily. [place] ORAL) 46 Medical Branch inFLIXimab 2020-0 Yes 840mg Inject 840 [facility] (REMICADE) 5-18 mg ity of 100 mg 00:16: intravenou [place] injection 46 sly every Medic al 14 Branch (fourteen) days. dicyclomine 2020-0 Yes 20mg Take 20 mg [facility] 20 mg 5-18 by mouth 3 ity of tablet 00:16: (three) [place] 46 times Medical daily. Branch erenumab-ao 0 Yes inject Univ ers oe (AIMOVIG 5-18 under the ity of AUTOINJECTO 00:16: skin. [place] R) 140 46 Medical mg/mL AtIn Branch metoprolol 2020-0 Yes 25mg Take 25 mg U nivers succinate 5-18 by mouth ity of (TOPROL XL 00:16: daily. [place] ORAL) 46 Medical Branch inFLIXimab 2020-0 Yes 840mg Inject 840 [facility] (REMICADE) 5-18 mg ity of 100 mg 00:16: intravenou [place] injection 46 sly every Medic al 14 Branch (fourteen) days. dicyclomine 2021-0 Yes 20mg Take 20 mg [facility] 20 mg 5-18 by mouth 3 ity of tablet 00:16: (three) [place] 46 times Medical daily. Branch erenumab-ao 0 Yes inject Univ ers oe (AIMOVIG 5-18 under the ity of AUTOINJECTO 00:16: skin. [place] R) 140 46 Medical mg/mL AtIn Branch metoprolol 2020-0 Yes 25mg Take 25 mg U nivers succinate 5-18 by mouth ity of (TOPROL XL 00:16: daily. [place] ORAL) 46 Medical Branch inFLIXimab 2020-0 Yes 840mg Inject 840 [facility] (REMICADE) 5-18 mg ity of 100 mg 00:16: intravenou [place] injection 46 sly every Medic al 14 Branch (fourteen) days. dicyclomine 1-0 Yes 20mg Take 20 mg [facility] 20 mg 5-18 by mouth 3 ity of tablet 00:16: (three) [place] 46 times Medical daily. Branch erenumab-ao 0 Yes inject Univ ers oe (AIMOVIG 5-18 under the ity of AUTOINJECTO 00:16: skin. [place] R) 140 46 Medical mg/mL AtIn Branch metoprolol 2020-0 Yes 25mg Take 25 mg U nivers succinate 5-18 by mouth ity of (TOPROL XL 00:16: daily. [place] ORAL) 46 Medical Branch inFLIXimab 1-0 Yes 840mg Inject 840 [facility] (REMICADE) 5-18 mg ity of 100 mg 00:16: intravenou [place] injection 46 sly every Medic al 14 Branch (fourteen) days. dicyclomine 2021-0 Yes 20mg Take 20 mg [facility] 20 mg 5-18 by mouth 3 ity of tablet 00:16: (three) [place] 46 times Medical daily. Branch erenumab-ao 2020-0 Yes inject Univ ers oe (AIMOVIG 5-18 under the ity of AUTOINJECTO 00:16: skin. [place] R) 140 46 Medical mg/mL AtIn Branch metoprolol 2020-0 Yes 25mg Take 25 mg U nivers succinate 5-18 by mouth ity of (TOPROL XL 00:16: daily. [place] ORAL) 46 Medical Branch inFLIXimab 1-0 Yes 840mg Inject 840 [facility] (REMICADE) 5-18 mg ity of 100 mg 00:16: intravenou [place] injection 46 sly every Medic al 14 Branch (fourteen) days. dicyclomine 2021-0 Yes 20mg Take 20 mg [facility] 20 mg 5-18 by mouth 3 ity of tablet 00:16: (three) [place] 46 times Medical daily. Branch erenumab-ao 2020-0 Yes inject Univ ers oe (AIMOVIG 5-18 under the ity of AUTOINJECTO 00:16: skin. [place] R) 140 46 Medical mg/mL AtIn Branch metoprolol 1-0 Yes 25mg Take 25 mg U nivers succinate 5-18 by mouth ity of (TOPROL XL 00:16: daily. [place] ORAL) 46 Medical Branch inFLIXimab 2020-0 Yes 840mg Inject 840 [facility] (REMICADE) 5-18 mg ity of 100 mg 00:16: intravenou [place] injection 46 sly every Medic al 14 Branch (fourteen) days. dicyclomine 2021-0 Yes 20mg Take 20 mg [facility] 20 mg 5-18 by mouth 3 ity of tablet 00:16: (three) [place] 46 times Medical daily. Branch erenumab-ao 2020-0 Yes inject Univ ers oe (AIMOVIG 5-18 under the ity of AUTOINJECTO 00:16: skin. [place] R) 140 46 Medical mg/mL AtIn Branch metoprolol 2021-0 Yes 25mg Take 25 mg U nivers succinate 5-18 by mouth ity of (TOPROL XL 00:16: daily. [place] ORAL) 46 Medical Branch inFLIXimab 2021-0 Yes 840mg Inject 840 [facility] (REMICADE) 5-18 mg ity of 100 mg 00:16: intravenou [place] injection 46 sly every Medic al 14 Branch (fourteen) days. dicyclomine 2021-0 Yes 20mg Take 20 mg [facility] 20 mg 5-18 by mouth 3 ity of tablet 00:16: (three) [place] 46 times Medical daily. Branch erenumab-ao 2020-0 Yes inject Univ ers oe (AIMOVIG 5-18 under the ity of AUTOINJECTO 00:16: skin. [place] R) 140 46 Medical mg/mL AtIn Branch metoprolol Yes 25mg Take 25 mg U nivers succinate 5-18 by mouth ity of (TOPROL XL 00:16: daily. [place] ORAL) 46 Medical Branch inFLIXimab 0 Yes 840mg Inject 840 [facility] (REMICADE) 5-18 mg ity of 100 mg 00:16: intravenou [place] injection 46 sly every Medic al 14 Branch (fourteen) days. dicyclomine Yes 20mg Take 20 mg [facility] 20 mg 5-18 by mouth 3 ity of tablet 00:16: (three) [place] 46 times Medical daily. Branch erenumab-ao Yes inject Univ ers oe (AIMOVIG 5-18 under the ity of AUTOINJECTO 00:16: skin. [place] R) 140 46 [facility]mg Take 25 mg U nivers succinate 5-18 by mouth ity of (TOPROL XL 00:16: daily. [place] ORAL) 46 Medical Branch ondansetron 2020- No 4mg Take 4 mg [facility] (ZOFRAN 5-17 05-17 by mouth ity of ODT) 4 mg 21:55: 00:00 every 8 [place] disintegrat 40 :00 (eight) Medic al ing tablet hours as Branc h needed. busPIRone 2020- No 15mg Take 15 mg U nivers 15 mg 5-17 05-17 by mouth 3 ity of tablet 21:55: 00:00 (three) [place] 40 :00 times Medical daily. Branch butorphanol 2020- No 1mg 1 mg, IV U nivers (STADOL) 5- 05-17 Push, ity of injection 1 21:41: 22:04 ONCE, 1 [place] mg 00 :00 dose, Mon Medical 06/28/20 at Branch 1645, Routine loperamide 2020- No 2mg 2 mg, Unive rs (IMODIUM 5-17 05-17 Oral, ity of A-D) 21:30: 22:26 ONCE, 1 [place] capsule 2 00 :00 dose, Mon Medic al mg 06/28/20 at Branch 1630, Routine LORazepam Yes 1mg 1 mg, [facility] (ATIVAN) 5-17 Oral, ity of tablet 1 mg 20:40: QHSPRN, 2 [place] 49 doses, Medical Starting Branch [facility] 06/28/20 at 1540, Until Discontinu ed, Routine, Anxiety butorphanol 2020- No 1mg 1 mg, IV U nivers (STADOL) 06-28 05-17 Push, ity of injection 1 15:35: 20:07 ONCE, 1 [place] mg 00 :00 dose, [facility] 06/28/20 at Branch 1045, Routine proMETHazin Yes 25mg 25 mg, IV U nivers e 06-28 Piggyback, ity of (PHENERGAN) 13:15: Q6HPRN, [place] 25 mg in 38 Starting Medical NaCl 0.9% [facility] (NS) 50 mL 06/28/20 at IV 0815, piggyback Until Discontinu ed, Routine, Nausea and Vomiting (N/V) hydrOXYzine Yes 10mg 10 mg, [facility] ers (ATARAX) 17 Oral, ity of tablet 10 06:58: Q6HPRN, [place] mg 54 Starting Medical [facility] 06/28/20 at 0158, Until Discontinu ed, Routine, Anxiety melatonin Yes 3mg 3 mg, Univers (MELATIN) -17 Oral, QHS, ity of tablet 3 mg 02:00: First dose [place] 00 on [facility] 06/27/20 at Branch 2100, Until Discontinu ed, Routine butalbital- 0 Yes 1{tbl} 1 tablet, [facility] acetaminoph 5-17 Oral, ity of en-caff 01:06: Q6HPRN, [place] (ESGIC) 14 Starting Medical 50-325-40 [place] Branch mg tablet 1 06/27/20 at tablet 2006, Until Discontinu ed, Routine, headache NaCl 0.9% 2020- No 250mL at 999 [facility] ers (NS) bolus 06-28 05-17 mL/hr, 250 it y of infusion 00:30: 00:30 mL, IV [place] 250 mL 00 :00 Piggyback, Medical ONCE, 1 Branch dose, 06/27/20 at 1930, STAT gabapentin 2021-0 Yes 600mg Take 1 Univ ers 600 mg 5-17 tablet by ity of tablet 00:00: mouth (three) Medical times Branch daily. cyclobenzap 2021-0 Yes 5mg Take 1 Univ ers rine 5 mg 5-17 tablet by ity o f tablet 00:00: mouth (three) Medical times Branch daily. busPIRone 2020-0 Yes 20mg Take 2 Univer s 10 mg 5-17 tablets by ity of tablet 00:00: mouth (three) Medical times Branch daily. LORazepam 1 2020-0 Yes 1mg Take 1 Univ ers mg tablet 5-17 tablet by ity o f 00:00: mouth [place] 00 bedtime as Medical needed for Branch Anxiety or Agitation (insomnia) . ubrogepant 2020-0 Yes 50mg Take 50 mg U nivers (UBRELVY) 5-17 by mouth ity of 50 mg Tab 00:00: as needed [place] 00 for Other Medical (Headache) Branch . proMETHazin 2020-0 Yes 12.5mg Take 0.5 Univers e 25 mg 5-17 tablets by ity of tablet 00:00: mouth 00 every 6 Medical (six) Branch hours as needed for Nausea and Vomiting (N/V). gabapentin 2020-0 Yes 600mg Take 1 Univ ers 600 mg 5-17 tablet by ity of tablet 00:00: mouth (three) Medical times Branch daily. cyclobenzap 2020-0 Yes 5mg Take 1 Univ ers rine 5 mg 5-17 tablet by ity o f tablet 00:00: mouth (three) Medical times Branch daily. busPIRone 2020-0 Yes 20mg Take 2 Univer s 10 mg 5-17 tablets by ity of tablet 00:00: mouth (three) Medical times Branch daily. LORazepam 1 2020-0 Yes 1mg Take 1 Univ ers mg tablet 5-17 tablet by ity o f 00:00: mouth [place] 00 bedtime as Medical needed for Branch Anxiety or Agitation (insomnia) . ubrogepant 1-0 Yes 50mg Take 50 mg U nivers (UBRELVY) 5-17 by mouth ity of 50 mg Tab 00:00: as needed [place] 00 for Other Medical (Headache) Branch . proMETHazin 2021-0 Yes 12.5mg Take 0.5 Univers e 25 mg 5-17 tablets by ity of tablet 00:00: mouth [place] 00 every 6 Medical (six) Branch hours as needed for Nausea and Vomiting (N/V). gabapentin 2021-0 Yes 600mg Take 1 Univ ers 600 mg 5-17 tablet by ity of tablet 00:00: mouth 3 00 (three) Medical times Branch daily. cyclobenzap 2021-0 Yes 5mg Take 1 Univ ers rine 5 mg 5-17 tablet by ity o f tablet 00:00: mouth 3 (three) Medical times Branch daily. busPIRone 202-0 Yes 20mg Take 2 Univer s 10 mg 5-17 tablets by ity of tablet 00:00: mouth (three) Medical times Branch daily. LORazepam 1 2020-0 Yes 1mg Take 1 Univ ers mg tablet 5-17 tablet by ity o f 00:00: mouth [place] 00 bedtime as Medical needed for Branch Anxiety or Agitation (insomnia) . ubrogepant 2020-0 Yes 50mg Take 50 mg U nivers (UBRELVY) 5-17 by mouth ity of 50 mg Tab 00:00: as needed [place] 00 for Other Medical (Headache) Branch . proMETHazin 2021-0 Yes 12.5mg Take 0.5 Univers e 25 mg 5-17 tablets by ity of tablet 00:00: mouth 00 every 6 Medical (six) Branch hours as needed for Nausea and Vomiting (N/V). gabapentin 2021-0 Yes 600mg Take 1 Univ ers 600 mg 5-17 tablet by ity of tablet 00:00: mouth (three) Medical times Branch daily. cyclobenzap 2021-0 Yes 5mg Take 1 Univ ers rine 5 mg 5-17 tablet by ity o f tablet 00:00: mouth (three) Medical times Branch daily. busPIRone 2021-0 Yes 20mg Take 2 Univer s 10 mg 5-17 tablets by ity of tablet 00:00: mouth 3 (three) Medical times Branch daily. LORazepam 1 2020-0 Yes 1mg Take 1 Univ ers mg tablet 5-17 tablet by ity o f 00:00: mouth at 00 bedtime as Medical needed for Branch Anxiety or Agitation (insomnia) . ubrogepant 2021-0 Yes 50mg Take 50 mg U nivers (UBRELVY) 5-17 by mouth ity of 50 mg Tab 00:00: as needed [place] 00 for Other Medical (Headache) Branch . proMETHazin 2021-0 Yes 12.5mg Take 0.5 Univers e 25 mg 5-17 tablets by ity of tablet 00:00: mouth [place] 00 every 6 Medical (six) Branch hours as needed for Nausea and Vomiting (N/V). gabapentin 202-0 Yes 600mg Take 1 Univ ers 600 mg 5-17 tablet by ity of tablet 00:00: mouth 3 (three) Medical times Branch daily. cyclobenzap 202-0 Yes 5mg Take 1 Univ ers rine 5 mg 5-17 tablet by ity o f tablet 00:00: mouth (three) Medical times Branch daily. busPIRone 2020-0 Yes 20mg Take 2 Univer s 10 mg 5-17 tablets by ity of tablet 00:00: mouth (three) Medical times Branch daily. LORazepam 1 2020-0 Yes 1mg Take 1 Univ ers mg tablet 5-17 tablet by ity o f 00:00: mouth at [place] 00 bedtime as Medical needed for Branch Anxiety or Agitation (insomnia) . ubrogepant 2020-0 Yes 50mg Take 50 mg U nivers (UBRELVY) 5-17 by mouth ity of 50 mg Tab 00:00: as needed [place] 00 for Other Medical (Headache) Branch . proMETHazin 202-0 Yes 12.5mg Take 0.5 Univers e 25 mg 5-17 tablets by ity of tablet 00:00: mouth [place] 00 every 6 Medical (six) Branch hours as needed for Nausea and Vomiting (N/V). gabapentin 2021-0 Yes 600mg Take 1 Univ ers 600 mg 5-17 tablet by ity of tablet 00:00: mouth (three) Medical times Branch daily. cyclobenzap 2021-0 Yes 5mg Take 1 Univ ers rine 5 mg 5-17 tablet by ity o f tablet 00:00: mouth 3 (three) Medical times Branch daily. busPIRone 2021-0 Yes 20mg Take 2 Univer s 10 mg 5-17 tablets by ity of tablet 00:00: mouth 3 (three) Medical times Branch daily. LORazepam 1 2020-0 Yes 1mg Take 1 Univ ers mg tablet 5-17 tablet by ity o f 00:00: mouth at [place] 00 bedtime as Medical needed for Branch Anxiety or Agitation (insomnia) . ubrogepant 2020-0 Yes 50mg Take 50 mg U nivers (UBRELVY) 5-17 by mouth ity of 50 mg Tab 00:00: as needed [place] 00 for Other Medical (Headache) Branch . proMETHazin 202-0 Yes 12.5mg Take 0.5 Univers e 25 mg 5-17 tablets by ity of tablet 00:00: mouth 00 every 6 Medical (six) Branch hours as needed for Nausea and Vomiting (N/V). gabapentin 2020-0 Yes 600mg Take 1 Univ ers 600 mg 5-17 tablet by ity of tablet 00:00: mouth (three) Medical times Branch daily. cyclobenzap 2020-0 Yes 5mg Take 1 Univ ers rine 5 mg 5-17 tablet by ity o f tablet 00:00: mouth (three) Medical times Branch daily. busPIRone 2020-0 Yes 20mg Take 2 Univer s 10 mg 5-17 tablets by ity of tablet 00:00: mouth (three) Medical times Branch daily. LORazepam 1 2020-0 Yes 1mg Take 1 Univ ers mg tablet 5-17 tablet by ity o f 00:00: mouth at [place] 00 bedtime as Medical needed for Branch Anxiety or Agitation (insomnia) . ubrogepant 2020-0 Yes 50mg Take 50 mg U n[facility] (UBRELVY) 5-17 by mouth ity of 50 mg Tab 00:00: as needed [place] 00 for Other Medical (Headache) Branch . proMETHazin 2021-0 Yes 12.5mg Take 0.5 [facility] 25 mg 5-17 tablets by ity of tablet 00:00: mouth [place] 00 every 6 Medical (six) Branch hours as needed for Nausea and Vomiting (N/V). gabapentin 2021-0 Yes 600mg Take 1 [facility] 600 mg 5-17 tablet by ity of tablet 00:00: mouth 3 (three) Medical times Branch daily. cyclobenzap 2021-0 Yes 5mg Take 1 [facility] ers rine 5 mg 5-17 tablet by ity o f tablet 00:00: mouth 3 (three) Medical times Branch daily. busPIRone 2020-0 Yes 20mg Take 2 [facility] 10 mg 5-17 tablets by ity of tablet 00:00: mouth 3 (three) Medical times Branch daily. LORazepam 1 2020-0 Yes 1mg Take 1 [facility] mg tablet 5-17 tablet by ity o f 00:00: mouth at [place] 00 bedtime as Medical needed for Branch Anxiety or Agitation (insomnia) . ubrogepant 2020-0 Yes 50mg Take 50 mg [facility] n[facility] (UBRELVY) 5-17 by mouth ity of 50 mg Tab 00:00: as needed [place] 00 for Other Medical (Headache) Branch . proMETHazin 2020-0 Yes 12.5mg Take 0.5 [facility] e 25 mg 5-17 tablets by ity of tablet 00:00: mouth 00 every 6 Medical (six) Branch hours as needed for Nausea and Vomiting (N/V). gabapentin 2020-0 Yes 600mg Take 1 [facility] 600 mg 5-17 tablet by ity of tablet 00:00: mouth 3 (three) Medical times Branch daily. cyclobenzap 2020-0 Yes 5mg Take 1 [facility] ers rine 5 mg 5-17 tablet by ity o f tablet 00:00: mouth 3 (three) Medical times Branch daily. busPIRone 2020-0 Yes 20mg Take 2 [facility] 10 mg 5-17 tablets by ity of tablet 00:00: mouth (three) Medical times Branch daily. LORazepam 1 2020-0 Yes 1mg Take 1 [facility] mg tablet 5-17 tablet by ity o f 00:00: mouth at [place] 00 bedtime as Medical needed for Branch Anxiety or Agitation (insomnia) . ubrogepant 1-0 Yes 50mg Take 50 mg [facility] (UBRELVY) 5-17 by mouth ity of 50 mg Tab 00:00: as needed [place] 00 for Other Medical (Headache) Branch . proMETHazin 2021-0 Yes 12.5mg Take 0.5 [facility] e 25 mg 5-17 tablets by ity of tablet 00:00: mouth [place] 00 every 6 Medical (six) Branch hours as needed for Nausea and Vomiting (N/V). gabapentin 202-0 Yes 600mg Take 1 [facility] 600 mg 5-17 tablet by ity of tablet 00:00: mouth (three) Medical times Branch daily. cyclobenzap 2021-0 Yes 5mg Take 1 [facility] ers rine 5 mg 5-17 tablet by ity o f tablet 00:00: mouth (three) Medical times Branch daily. busPIRone 2020-0 Yes 20mg Take 2 [facility] 10 mg 5-17 tablets by ity of tablet 00:00: mouth 3 (three) Medical times Branch daily. LORazepam 1 2020-0 Yes 1mg Take 1 [facility] mg tablet 5-17 tablet by ity o f 00:00: mouth at 00 bedtime as Medical needed for Branch Anxiety or Agitation (insomnia) . ubrogepant 2020-0 Yes 50mg Take 50 mg [facility] (UBRELVY) 5-17 by mouth ity of 50 mg Tab 00:00: as needed [place] 00 for Other Medical (Headache) Branch . proMETHazin 2020-0 Yes 12.5mg Take 0.5 [facility] 25 mg 5-17 tablets by ity of tablet 00:00: mouth 00 every 6 Medical (six) Branch hours as needed for Nausea and Vomiting (N/V). gabapentin 2020-0 Yes 600mg Take 1 [facility] 600 mg 5-17 tablet by ity of tablet 00:00: mouth (three) Medical times Branch daily. cyclobenzap 2020-0 Yes 5mg Take 1 [facility] ers rine 5 mg 5-17 tablet by ity o f tablet 00:00: mouth (three) Medical times Branch daily. busPIRone 2020-0 Yes 20mg Take 2 [facility] 10 mg 5-17 tablets by ity of tablet 00:00: mouth (three) Medical times Branch daily. LORazepam 1 2020-0 Yes 1mg Take 1 [facility] mg tablet 5-17 tablet by ity o f 00:00: mouth at 00 bedtime as Medical needed for Branch Anxiety or Agitation (insomnia) . ubrogepant 1-0 Yes 50mg Take 50 mg [facility] (UBRELVY) 5-17 by mouth ity of 50 mg Tab 00:00: as needed [place] 00 for Other Medical (Headache) Branch . proMETHazin 202-0 Yes 12.5mg Take 0.5 [facility] 25 mg 5-17 tablets by ity of tablet 00:00: mouth 00 every 6 Medical (six) Branch hours as needed for Nausea and Vomiting (N/V). gabapentin 202-0 Yes 600mg Take 1 [facility] 600 mg 5-17 tablet by ity of tablet 00:00: mouth (three) Medical times Branch daily. cyclobenzap 2020-0 Yes 5mg Take 1 [facility] ers rine 5 mg 5-17 tablet by ity o f tablet 00:00: mouth (three) Medical times Branch daily. busPIRone 2020-0 Yes 20mg Take 2 [facility] 10 mg 5-17 tablets by ity of tablet 00:00: mouth (three) Medical times Branch daily. LORazepam 1 2020-0 Yes 1mg Take 1 [facility] mg tablet 5-17 tablet by ity o f 00:00: mouth at 00 bedtime as Medical needed for Branch Anxiety or Agitation (insomnia) . ubrogepant 2020-0 Yes 50mg Take 50 mg [facility] n[facility] (UBRELVY) 5-17 by mouth ity of 50 mg Tab 00:00: as needed [place] 00 for Other Medical (Headache) Branch . proMETHazin 2020-0 Yes 12.5mg Take 0.5 [facility] 25 mg 5-17 tablets by ity of tablet 00:00: mouth 00 every 6 Medical (six) Branch hours as needed for Nausea and Vomiting (N/V). gabapentin 1-0 Yes 600mg Take 1 [facility] 600 mg 5-17 tablet by ity of tablet 00:00: mouth (three) Medical times Branch daily. cyclobenzap 2021-0 Yes 5mg Take 1 [facility] ers rine 5 mg 5-17 tablet by ity o f tablet 00:00: mouth (three) Medical times Branch daily. busPIRone 202-0 Yes 20mg Take 2 [facility] 10 mg 5-17 tablets by ity of tablet 00:00: mouth (three) Medical times Branch daily. LORazepam 1 2020-0 Yes 1mg Take 1 [facility] mg tablet 5-17 tablet by ity o f 00:00: mouth at [place] 00 bedtime as Medical needed for Branch Anxiety or Agitation (insomnia) . ubrogepant 2021-0 Yes 50mg Take 50 mg [facility] n[facility] (UBRELVY) 5-17 by mouth ity of 50 mg Tab 00:00: as needed [place] 00 for Other Medical (Headache) Branch . proMETHazin 2021-0 Yes 12.5mg Take 0.5 [facility] 25 mg 5-17 tablets by ity of tablet 00:00: mouth [place] 00 every 6 Medical (six) Branch hours as needed for Nausea and Vomiting (N/V). gabapentin 2021-0 Yes 600mg Take 1 [facility] 600 mg 5-17 tablet by ity of tablet 00:00: mouth 3 (three) Medical times Branch daily. cyclobenzap 202-0 Yes 5mg Take 1 [facility] ers rine 5 mg 5-17 tablet by ity o f tablet 00:00: mouth 3 (three) Medical times Branch daily. busPIRone 2020-0 Yes 20mg Take 2 [facility] 10 mg 5-17 tablets by ity of tablet 00:00: mouth 3 (three) Medical times Branch daily. LORazepam 1 2020-0 Yes 1mg Take 1 [facility] mg tablet 5-17 tablet by ity o f 00:00: mouth at [place] 00 bedtime as Medical needed for Branch Anxiety or Agitation (insomnia) . ubrogepant 2020-0 Yes 50mg Take 50 mg [facility] nivers (UBRELVY) 5-17 by mouth ity of 50 mg Tab 00:00: as needed [place] 00 for Other Medical (Headache) Branch . proMETHazin 2021-0 Yes 12.5mg Take 0.5 [facility] 25 mg 5-17 tablets by ity of tablet 00:00: mouth [place] 00 every 6 Medical (six) Branch hours as needed for Nausea and Vomiting (N/V). gabapentin 2021-0 Yes 600mg Take 1 [facility] 600 mg 5-17 tablet by ity of tablet 00:00: mouth 3 (three) Medical times Branch daily. cyclobenzap 2021-0 Yes 5mg Take 1 [facility] ers rine 5 mg 5-17 tablet by ity o f tablet 00:00: mouth 3 (three) Medical times Branch daily. busPIRone 2021-0 Yes 20mg Take 2 [facility] 10 mg 5-17 tablets by ity of tablet 00:00: mouth 3 (three) Medical times Branch daily. LORazepam 1 2020-0 Yes 1mg Take 1 [facility] mg tablet 5-17 tablet by ity o f 00:00: mouth at [place] 00 bedtime as Medical needed for Branch Anxiety or Agitation (insomnia) . ubrogepant 2020-0 Yes 50mg Take 50 mg [facility] nivers (UBRELVY) 5-17 by mouth ity of 50 mg Tab 00:00: as needed [place] 00 for Other Medical (Headache) Branch . proMETHazin 202-0 Yes 12.5mg Take 0.5 [facility] 25 mg 5-17 tablets by ity of tablet 00:00: mouth [place] 00 every 6 Medical (six) Branch hours as needed for Nausea and Vomiting (N/V). gabapentin 2020-0 Yes 600mg Take 1 [facility] 600 mg 5-17 tablet by ity of tablet 00:00: mouth 3 (three) Medical times Branch daily. cyclobenzap 2020-0 Yes 5mg Take 1 [facility] ers rine 5 mg 5-17 tablet by ity o f tablet 00:00: mouth 3 (three) Medical times Branch daily. busPIRone 2020-0 Yes 20mg Take 2 [facility] 10 mg 5-17 tablets by ity of tablet 00:00: mouth 3 (three) Medical times Branch daily. LORazepam 1 2020-0 Yes 1mg Take 1 [facility] mg tablet 5-17 tablet by ity o f 00:00: mouth at [place] 00 bedtime as Medical needed for Branch Anxiety or Agitation (insomnia) . ubrogepant 2020-0 Yes 50mg Take 50 mg [facility] n[facility] (UBRELVY) 5-17 by mouth ity of 50 mg Tab 00:00: as needed [place] 00 for Other Medical (Headache) Branch . proMETHazin 2021-0 Yes 12.5mg Take 0.5 [facility] 25 mg 5-17 tablets by ity of tablet 00:00: mouth [place] 00 every 6 Medical (six) Branch hours as needed for Nausea and Vomiting (N/V). gabapentin 2021-0 Yes 600mg Take 1 [facility] 600 mg 5-17 tablet by ity of tablet 00:00: mouth 3 [place] 00 (three) Medical times Branch daily. cyclobenzap 202-0 Yes 5mg Take 1 [facility] ers rine 5 mg 5-17 tablet by ity o f tablet 00:00: mouth (three) Medical times Branch daily. busPIRone 2020-0 Yes 20mg Take 2 [facility] 10 mg 5-17 tablets by ity of tablet 00:00: mouth (three) Medical times Branch daily. LORazepam 1 2020-0 Yes 1mg Take 1 [facility] mg tablet 5-17 tablet by ity o f 00:00: mouth at 00 bedtime as Medical needed for Branch Anxiety or Agitation (insomnia) . ubrogepant 2020-0 Yes 50mg Take 50 mg [facility] n[facility] (UBRELVY) 5-17 by mouth ity of 50 mg Tab 00:00: as needed [place] 00 for Other Medical (Headache) Branch . proMETHazin 2020-0 Yes 12.5mg Take 0.5 [facility] 25 mg 5-17 tablets by ity of tablet 00:00: mouth 00 every 6 Medical (six) Branch hours as needed for Nausea and Vomiting (N/V). gabapentin 2020-0 Yes 600mg Take 1 [facility] 600 mg 5-17 tablet by ity of tablet 00:00: mouth (three) Medical times Branch daily. cyclobenzap 2020-0 Yes 5mg Take 1 [facility] ers rine 5 mg 5-17 tablet by ity o f tablet 00:00: mouth (three) Medical times Branch daily. busPIRone 2020-0 Yes 20mg Take 2 [facility] 10 mg 5-17 tablets by ity of tablet 00:00: mouth (three) Medical times Branch daily. LORazepam 1 2020-0 Yes 1mg Take 1 [facility] mg tablet 5-17 tablet by ity o f 00:00: mouth at 00 bedtime as Medical needed for Branch Anxiety or Agitation (insomnia) . ubrogepant 1-0 Yes 50mg Take 50 mg [facility] n[facility] (UBRELVY) 5-17 by mouth ity of 50 mg Tab 00:00: as needed [place] 00 for Other Medical (Headache) Branch . proMETHazin 2021-0 Yes 12.5mg Take 0.5 [facility] 25 mg 5-17 tablets by ity of tablet 00:00: mouth [place] 00 every 6 Medical (six) Branch hours as needed for Nausea and Vomiting (N/V). gabapentin 2020-0 Yes 600mg Take 1 [facility] 600 mg 5-17 tablet by ity of tablet 00:00: mouth 3 00 (three) Medical times Branch daily. cyclobenzap 2020-0 Yes 5mg Take 1 [facility] ers rine 5 mg 5-17 tablet by ity o f tablet 00:00: mouth 3 (three) Medical times Branch daily. busPIRone 2020-0 Yes 20mg Take 2 [facility] 10 mg 5-17 tablets by ity of tablet 00:00: mouth 3 (three) Medical times Branch daily. LORazepam 1 2020-0 Yes 1mg Take 1 [facility] mg tablet 5-17 tablet by ity o f 00:00: mouth at [place] 00 bedtime as Medical needed for Branch Anxiety or Agitation (insomnia) . ubrogepant 2020-0 Yes 50mg Take 50 mg [facility] n[facility] (UBRELVY) 5-17 by mouth ity of 50 mg Tab 00:00: as needed [place] 00 for Other Medical (Headache) Branch . proMETHazin 2020-0 Yes 12.5mg Take 0.5 [facility] 25 mg 5-17 tablets by ity of tablet 00:00: mouth 00 every 6 Medical (six) Branch hours as needed for Nausea and Vomiting (N/V). gabapentin 2020-0 Yes 600mg Take 1 [facility] 600 mg 5-17 tablet by ity of tablet 00:00: mouth (three) Medical times Branch daily. cyclobenzap 2020-0 Yes 5mg Take 1 [facility] ers rine 5 mg 5-17 tablet by ity o f tablet 00:00: mouth 3 (three) Medical times Branch daily. busPIRone 2020-0 Yes 20mg Take 2 [facility] 10 mg 5-17 tablets by ity of tablet 00:00: mouth 3 (three) Medical times Branch daily. LORazepam 1 2020-0 Yes 1mg Take 1 [facility] mg tablet 5-17 tablet by ity o f 00:00: mouth at [place] 00 bedtime as Medical needed for Branch Anxiety or Agitation (insomnia) . ubrogepant 2020-0 Yes 50mg Take 50 mg [facility] nivers (UBRELVY) 5-17 by mouth ity of 50 mg Tab 00:00: as needed [place] 00 for Other Medical (Headache) Branch . proMETHazin 2020-0 Yes 12.5mg Take 0.5 [facility] 25 mg 5-17 tablets by ity of tablet 00:00: mouth [place] 00 every 6 Medical (six) Branch hours as needed for Nausea and Vomiting (N/V). gabapentin 2020-0 Yes 600mg Take 1 [facility] 600 mg 5-17 tablet by ity of tablet 00:00: mouth 3 (three) Medical times Branch daily. busPIRone 2020-0 Yes 20mg Take 2 [facility] 10 mg 5-17 tablets by ity of tablet 00:00: mouth (three) Medical times Branch daily. LORazepam 1 2020-0 Yes 1mg Take 1 [facility] mg tablet 5-17 tablet by ity o f 00:00: mouth at 00 bedtime as Medical needed for Branch Anxiety or Agitation (insomnia) . proMETHazin 2020-0 Yes 12.5mg Take 0.5 [facility] e 25 mg 5-17 tablets by ity of tablet 00:00: mouth [place] 00 every 6 Medical (six) Branch hours as needed for Nausea and Vomiting (N/V). gabapentin 2020-0 Yes 600mg Take 1 [facility] 600 mg 5-17 tablet by ity of tablet 00:00: mouth (three) Medical times Branch daily. cyclobenzap 2020-0 Yes 5mg Take 1 [facility] ers rine 5 mg 5-17 tablet by ity o f tablet 00:00: mouth (three) Medical times Branch daily. busPIRone 2020-0 Yes 20mg Take 2 [facility] 10 mg 5-17 tablets by ity of tablet 00:00: mouth 3 (three) Medical times Branch daily. LORazepam 1 2020-0 Yes 1mg Take 1 [facility] mg tablet 5-17 tablet by ity o f 00:00: mouth at [place] 00 bedtime as Medical needed for Branch Anxiety or Agitation (insomnia) . ubrogepant 2021-0 Yes 50mg Take 50 mg U nivers (UBRELVY) 5-17 by mouth ity of 50 mg Tab 00:00: as needed [place] 00 for Other Medical (Headache) Branch . proMETHazin 2020-0 Yes 12.5mg Take 0.5 [facility] 25 mg 5-17 tablets by ity of tablet 00:00: mouth [place] 00 every 6 Medical (six) Branch hours as needed for Nausea and Vomiting (N/V). gabapentin 2020-0 Yes 600mg Take 1 [facility] 600 mg 5-17 tablet by ity of tablet 00:00: mouth (three) Medical times Branch daily. busPIRone 2020-0 Yes 20mg Take 2 [facility] 10 mg 5-17 tablets by ity of tablet 00:00: mouth 3 (three) Medical times Branch daily. LORazepam 1 2020-0 Yes 1mg Take 1 [facility] mg tablet 5-17 tablet by ity o f 00:00: mouth at 00 bedtime as Medical needed for Branch Anxiety or Agitation (insomnia) . proMETHazin 2020-0 Yes 12.5mg Take 0.5 [facility] 25 mg 5-17 tablets by ity of tablet 00:00: mouth 00 every 6 Medical (six) Branch hours as needed for Nausea and Vomiting (N/V). gabapentin 2020-0 Yes 600mg Take 1 [facility] 600 mg 5-17 tablet by ity of tablet 00:00: mouth (three) Medical times Branch daily. cyclobenzap 2020-0 Yes 5mg Take 1 [facility] ers rine 5 mg 5-17 tablet by ity o f tablet 00:00: mouth (three) Medical times Branch daily. busPIRone 2020-0 Yes 20mg Take 2 [facility] 10 mg 5-17 tablets by ity of tablet 00:00: mouth (three) Medical times Branch daily. LORazepam 1 2020-0 Yes 1mg Take 1 [facility] mg tablet 5-17 tablet by ity o f 00:00: mouth at 00 bedtime as Medical needed for Branch Anxiety or Agitation (insomnia) . ubrogepant 2020-0 Yes 50mg Take 50 mg U nivers (UBRELVY) 5-17 by mouth ity of 50 mg Tab 00:00: as needed [place] 00 for Other Medical (Headache) Branch . proMETHazin 2020-0 Yes 12.5mg Take 0.5 [facility] e 25 mg 5-17 tablets by ity of tablet 00:00: mouth [place] 00 every 6 Medical (six) Branch hours as needed for Nausea and Vomiting (N/V). gabapentin 0 Yes 600mg Take 1 [facility] ers 600 mg 5-17 tablet by ity of tablet 00:00: mouth 3 [place] 00 (three) Medical times Branch daily. cyclobenzap 0 Yes 5mg Take 1 Univ ers rine 5 mg 5-17 tablet by ity o f tablet 00:00: mouth 3 [place] 00 (three) Medical times Branch daily. busPIRone 2020-0 Yes 20mg Take 2 Un[facility] 10 mg 5-17 tablets by ity of tablet 00:00: mouth 3 [place] 00 (three) Medical times Branch daily. LORazepam 1 0 Yes 1mg Take 1 Univ ers mg tablet 5-17 tablet by ity o f 00:00: mouth at [place] 00 bedtime as Medical needed for Branch Anxiety or Agitation (insomnia) . ubrogepant Yes 50mg Take 50 mg U nivers (UBRELVY) 5-17 by mouth ity of 50 mg Tab 00:00: as needed [place] 00 for Other Medical (Headache) Branch . proMETHazin Yes 12.5mg Take 0.5 [facility] e 25 mg 5-17 tablets by ity of tablet 00:00: mouth [place] 00 every 6 Medical (six) Branch hours as needed for Nausea and Vomiting (N/V). cyclobenzap 2020- No 5mg Take 1 Uni vers rine 5 mg 5-17 10-24 tablet by ity of tablet 00:00: 00:00 mouth 3 [place] 00 :00 (three) Medical times Branch daily. ubrogepant 0 2020- No 50mg Take 50 mg Univers (UBRELVY) 5-17 10-24 by mouth ity o f 50 mg Tab 00:00: 00:00 as needed [place] 00 :00 for Other Medical (Headache) Branch . ondansetron 2020- No 4mg 4 mg, Slow Univers (ZOFRAN 06-27 05-17 IV Push, ity of (PF)) 21:25: 13:15 Q6HPRN, [place] injection 4 04 :50 Starting Medi bernadine mg [place] [facility] 06/27/20 at 1625, Until 06/28/20 at 0815, Routine, Nausea and Vomiting (N/V) cyclobenzap 0 Yes 5mg 5 mg, Unive rs rine 5-16 Oral, TID, ity of (FLEXERIL) 16:00: First dose [place] tablet [facility] Branch 1100, Until Discontinu ed, Routine ibuprofen 0 Yes 600mg 600 mg, Univ ers (IBU) 5-16 Oral, ity of tablet 600 15:49: Q6HPRN, [place] mg 19 Starting Medical [facility] 06/27/20 at 1049, Until Discontinu ed, Routine, Pain (scale 4-6) pantoprazol Yes 40mg 40 mg, Univ ers e 5-16 Oral, ity of (PROTONIX) 14:00: DAILY, [place] EC tablet 00 First dose Medi bernadine 40 mg on [place] Branch 06/27/20 at 0900, Until Discontinu ed, Routine losartan Yes 50mg 50 mg, Univers (COZAAR) 5-16 Oral, ity of tablet 50 14:00: DAILY, [place] mg 00 First dose Medical on [place] Branch 06/27/20 at 0900, Until Discontinu ed, Routine metoprolol Yes 25mg 25 mg, Unive rs succinate 5-16 Oral, ity of XL (TOPROL 14:00: DAILY, [place] XL) tablet 00 First dose Med ical 25 mg on [place] Branch 06/27/20 at 0900, Until Discontinu ed azaTHIOprin Yes 150mg 150 mg, Un matt e (IMURAN) 5-16 Oral, ity of tablet 150 14:00: DAILY, [place] mg 00 First dose Medical on [place] Branch 06/27/20 at 0900, Until Discontinu ed, Routine heparin 0 Yes 5000U 5,000 [facility] (porcine) 5-16 Units, ity of injection 13:00: Subcutaneo [place] 5,000 Units 00 us, Q12H, Med ical First dose Branch on [place] 06/27/20 at 0800, Until Discontinu ed, Routine dicyclomine 0 Yes 20mg 20 mg, Univ ers (BENTYL) 5-16 Oral, TID, ity o f tablet 20 13:00: First dose [place] mg 00 on [facility] 06/27/20 at Branch 0800, Until Discontinu ed, Routine gabapentin 2020- No 400mg 400 mg, Un matt (NEURONTIN) 06-27 Oral, TID, i ty of capsule 400 13:00: 20:40 First dose [place] mg 00 :15 on [facility] 06/27/20 at Branch 0800, Until Discontinu ed, Routine morpHINE 2020- No 2mg 2 mg, Slow Un matt injection 2 06-27 IV Push, ity of mg 10:00: 09:07 ONCE, 1 [place] 00 :00 dose, [facility] 06/27/20 at Branch 0500, GIGI LORazepam 2020- No 2mg 2 mg, Univer s (ATIVAN) 06-27 Oral, ity of tablet 2 mg 06:00: 08:58 ONCE, 1 [place] 00 :[place] dose, [facility] 06/27/20 at Branch 0100, Routine gabapentin 2020- No 600mg 600 mg, Un matt (NEURONTIN) 06-27 Oral, ity of tablet 600 05:00: 04:03 ONCE, 1 [place] mg 00 :00 dose, [facility] 06/27/20 at Branch 0000, GIGI magnesium 2020- No 2g 2 g, IV Univ ers sulfate in 06-27 Piggyback, it y of water 2 04:15: 06:10 ONCE, 1 [place] gram/50 mL 00 :00 dose, Sat Medi bernadine (4 %) 06/26/20 at Branch infusion 2 2315, GIGI g valproate 2020- No 500mg 500 mg, IV Univers (DEPACON) 06-27 Piggyback, ity of 500 mg in 04:15: 04:54 ONCE, 1 [place] D5W 00 :00 dose, Sat Medical piggyback 06/26/[address] [facility] ch 2315, 100 mL LORazepam 2020- No 1mg 1 mg, Univer s (ATIVAN) 06-27 Oral, QHS, ity of tablet 1 mg 04:00: 01:27 2 doses, [place] 00 :00 First dose Medical (after Branch last modificati on) on 06/26/20 at 2300, Last dose on 06/27/20 at 2100, Routine proMETHazin 2020- No 25mg 25 mg, Uni vers e 06-27 Intramuscu ity of (PHENERGAN) 03:54: 16:21 lar, [place] injection 03 :00 Q6HPRN, 2 Medic al 25 mg doses, Branch Starting 06/26/20 at 2254, Until Discontinu ed, Routine, Nausea and Vomiting (N/V) NaCl 0.9% 2020- No Infuse Unive rs (NS) SolP 06-27 once now. ity of 250 mL with 03:53: 00:00 [place] inFLIXimab 04 :00 Medical 100 mg SolR Branch acetaminoph Yes 650mg 650 mg, Un matt en 06-27 Oral, ity of (TYLENOL) 03:49: Q6HPRN, [place] tablet 650 19 Starting Medic al mg Sat Branch 06/26/20 at 2249, Until Discontinu ed, Routine, Pain (scale 4-6) oxybutynin Yes 5mg 5 mg, Univer s chloride 06-27 Oral, ity of (DITROPAN) 03:49: TIDPRN, [place] tablet 5 mg 06 Starting Medi bernadine Sat Branch 06/26/20 at 2249, Until Discontinu ed, Routine, Bladder spasms ketorolac 2020- No 30mg 30 mg, Unive rs (TORADOL) 06-27 Slow IV ity of injection 03:46: 16:21 Push, [place] 30 mg 19 :00 Q6HPRN, 2 Medical doses, Branch Starting 06/26/20 at 2246, Until Discontinu ed, Routine, Pain (scale 7-10)
F aculty member approving Restricted medication : CAIO HERNANDEZ proMETHazin 2020- No 12.5mg 12.5 mg, Univers e 06-27 IV ity of (PHENERGAN) 01:15: 00:18 Piggyback, [place] 12.5 mg in 00 :00 ONCE, 1 Medica l NaCl 0.9% dose, Sat Bran h (NS) 50 mL 06/26/20 at piggyback 2014, 50 mL morpHINE 2020- No 4mg 4 mg, Slow Un matt injection 4 06-27 IV Push, ity of mg 01:15: 00:18 ONCE, 1 [place] 00 :00 dose, Sat Medical 06/26/20 at Branch 2015, STAT iopamidol 2020- No [id number] 100mL 100 mL, Univers (ISOVUE 06-26 Intravenou ity o f 370-500 mL) 23:15: 22:07 s, ONCE, 1 [place] injection 00 :00 dose, Sat Medic al 100 mL 06/26/20 at Branch 181, Routine ondansetron 2020- No 4mg 4 mg, Slow Univers (ZOFRAN 06-26 IV Push, ity of (PF)) 22:15: 21:24 ONCE, 1 [place] injection 4 00 :00 dose, Sat Med ical mg 06/26/20 at Branch 171, GIGI butalbital- 2020- No 1{tbl} 1 tablet, Univers acetaminoph 06-26 Oral, ONCE i ty of en-caff 22:15: 21:26 NOW, 1 [place] (ESGIC) 00 :00 dose, Sat Medical 50-325-40 06/26/20 at Bran ch mg tablet 1 1714, GIGI tablet nitroglycer 2020- No .4mg 0.4 mg, Un matt in 06-26 Sublingual ity of (NITROSTAT) 22:15: 21:26 , ONCE, 1 [place] sublingual 00 :00 dose, Sat Medi bernadine tablet 0.4 06/26/20 at Bra nch mg 1714, GIGI magnesium 2020- No 2g 2 g, IV Univ ers sulfate in 06-26 Piggyback, it y of water 2 22:15: 23:46 ONCE, 1 [place] gram/50 mL 00 :00 dose, Sat Medi bernadine (4 %) 06/26/20 at Branch infusion 2 1715, g Routine dexamethaso 2020- No 10mg 10 mg, IV Univers ne 06-26 Push, ity of (DECADRON 22:15: 21:25 ONCE, 1 [place] PHOSPHATE) 00 :00 dose, Sat Medi bernadine injection 06/26/20 at Bran ch 10 mg 1715, STAT diphenhydrA 2020- No 25mg 25 mg, Uni vers MINE 06-26 Slow IV ity of (BENADRYL) 21:30: 20:31 Push, [place] injection 00 :00 ONCE, 1 Medical 25 mg dose, Sat Branch 06/26/20 at 1630, STAT metoclopram 2020- No 10mg 10 mg, Uni vers marilyn HCl 06-26 Slow IV ity of (REGLAN) 21:30: 20:30 Push, [place] injection 00 :00 ONCE, 1 Medical 10 mg dose, Sat Branch 06/26/20 at 1630, GIGI ketorolac 2020- No 30mg 30 mg, Unive rs (TORADOL) 06-26 Slow IV ity of injection 21:30: 20:31 Push, [place] 30 mg 00 :00 ONCE, 1 Medical dose, Sat Branch 06/26/20 at 1630, GIGI
Fa culty member approving Restricted medication : EMERGENCY ROOM, NaCl 0.9% 2020- No 1000mL at 999 Uni vers (NS) bolus 06-26- mL/hr, ity of infusion 20:30: 22:32 1,000 mL, [place] 1,000 mL 00 :00 IV Medical Infusion, Branch ONCE, 1 dose, 06/26/20 at 1530, GIGI aspirin 2020- No 325mg 325 mg, Unive rs tablet 325 06-26 Oral, ity of mg 20:15: 20:30 ONCE, 1 [place] 00 :00 dose, Sat Medical 06/26/20 at Branch 1515, STAT NaCl 0.9% Yes Infuse Univer s (NS) SolP 4-21 once now. ity o f 250 mL with 16:54: [place] inFLIXimab 47 Medical 100 mg SolR Branch metoprolol Yes 25mg Take 25 mg U nivers succinate 4-21 by mouth ity of (TOPROL XL 16:54: daily. [place] ORAL) 47 Medical Branch inFLIXimab 2021-0 Yes 840mg Inject 840 Univers (REMICADE) 4-21 mg ity of 100 mg 16:54: intravenou [place] injection 47 sly every Medic al 14 Branch (fourteen) days. dicyclomine Yes 20mg Take 20 mg Univers 20 mg 4-21 by mouth 3 ity of tablet 16:54: (three) [place] 47 times Medical daily. Branch ondansetron Yes 4mg Take 4 mg U nivers (ZOFRAN 4-21 by mouth ity of ODT) 4 mg 16:54: every 8 [place] disintegrat 47 (eight) Medic al ing tablet hours as Branc h needed. busPIRone Yes 15mg Take 15 mg Un matt 15 mg 4-21 by mouth 3 ity of tablet 16:54: (three) [place] 47 times Medical daily. Branch erenumab-ao Yes inject Univ ers oe (AIMOVIG 4-21 under the ity of AUTOINJECTO 16:54: skin. [place] R) 140 47 Medical mg/mL AtIn [place] phenazopyri 2020- No 200mg 200 mg, U nivers dine -02 06-21 Oral, ity of (PYRIDIUM) 04:15: 03:34 ONCE, 1 [place] tablet 200 00 :00 dose, Tue Medi bernadine mg 06/01/20 at Branch 2315, Routine pantoprazol 2020- No [id number] 40mg Take 1 Univers e 40 mg EC 06-02- tablet by ity of tablet 00:00: 04:59 mouth [place] 00 :00 daily for Medical 30 days. Branch pantoprazol 2020- No [id number] 40mg Take 1 Univers e 40 mg EC -02 07-22 tablet by ity of tablet 00:00: 04:59 mouth [place] 00 :00 daily for Medical 30 days. Branch pantoprazol 2020- No [id number] 40mg Take 1 Univers e 40 mg EC -02 07-22 tablet by ity of tablet 00:00: 04:59 mouth [place] 00 :00 daily for Medical 30 days. Branch HYDROcodone 2020- No [id number] 1{tbl} Take 1 U nivers -acetaminop 4-21 04-29 tablet by it y of hen 10-325 00:00: 04:59 mouth [place] mg tablet 00 :00 every 6 Medical (six) Branch hours as needed for Pain (scale 4-6) for up to 7 days. Indication s: acute pain proMETHazin 2020- No [id number] 25mg Take 1 Univers e 25 mg 06-02 04-27 tablet by ity of tablet 00:00: 04:59 mouth [place] 00 :00 every 6 Medical (six) Branch hours as needed for Nausea and Vomiting (N/V) for up to 5 days. 1 or 2 tablets ibuprofen Yes 600mg 600 mg, Univ ers (IBU) 4-20 Oral, Q6H, ity of tablet 600 19:15: First dose [place] mg 00 on [facility] 06/01/20 at Branch 1415, Until Discontinu ed, Routine HYDROcodone Yes 1{tbl} 1 tablet, Univers -acetaminop 4-20 Oral, ity of hen (NORCO) 19:00: Q6HPRN, [place] 10-325 mg 48 Starting Medica l tablet 1 [facility] tablet 06/01/20 at 1400, Until Discontinu ed, Routine, Pain (scale 4-6) cefpodoxime 2020- No Take by U nivers proxetil 4-20 04-20 mouth. ity of (VANTIN 18:00: 00:00 [place] ORAL) 17 :00 [facility] Branch proMETHazin Yes 25mg 25 mg, Univ ers e 4-20 Oral, ity of (PHENERGAN) 15:20: Q4HPRN, [place] tablet 25 12 Starting Medica l mg [facility] 06/01/20 at 1020, Until Discontinu ed, Routine, Nausea and Vomiting (N/V) acetaminoph 2020- No 1{tbl} 1 tablet, Univers en-codeine 4-20 04-20 Oral, ity of (TYLENOL 15:18: 19:01 Q4HPRN, [place] #3) 300-30 42 :49 Starting Medic al mg tablet 1 [facility] tablet 06/01/20 at 1018, Until [facility] 06/01/20 at 1401, Routine, Pain (scale 4-6) pantoprazol Yes 40mg 40 mg, Univ ers e 4-20 Oral, ity of (PROTONIX) 14:30: DAILY, [place] EC tablet 00 First dose Medi bernadine 40 mg on [facility] 06/01/20 at 0930, Until Discontinu ed, Routine azaTHIOprin Yes 150mg 150 mg, Un matt e (IMURAN) 4-20 Oral, ity of tablet 150 14:30: DAILY, [place] mg 00 First dose Medical (after Branch last modificati on) on [facility] 06/01/20 at 0930, Until Discontinu ed, Routine morpHINE Yes 2mg 2 mg, Slow Uni vers injection 2 -20 IV Push, ity of mg 08:26: Q4HPRN, [place] 30 Starting Medical [facility] 06/01/20 at 0326, Until Discontinu ed, Routine, Pain (scale 7-10) morpHINE 2020- No 2mg 2 mg, Slow Un matt injection 2 - 04-20 IV Push, ity of mg 06:00: 05:01 ONCE, 1 [place] 00 :00 dose, [facility] 06/01/20 at Branch 0100, Routine amoxicillin 2020- No [id number] 1{tbl} Take 1 Univers -clavulanat 06-01 04-28 tablet by it y of e 00:00: 04:59 mouth 2 [place] (AUGMENTIN) 00 :00 (two) Medical 875-125 mg times Branch per tablet daily for 7 days. proMETHazin 2020- No 25mg 25 mg, IV Univers e 05-31-20 Piggyback, ity of (PHENERGAN) 22:18: 15:20 Q6HPRN, [place] 25 mg in 42 :48 Starting Medical NaCl 0.9% [facility] Branch (NS) 50 mL 05/31/20 at IV 1718, piggyback Until [facility] 06/01/20 at 1020, Routine, Nausea and Vomiting (N/V) acetaminoph Yes 650mg 650 mg, Un matt en 05-31 Oral, ity of (TYLENOL) 15:33: Q6HPRN, [place] tablet 650 00 Starting Medic al mg [facility] 05/31/20 at 1033, Until Discontinu ed, Routine, Temp > 38.5 C butalbital- 0 Yes 1{tbl} 1 tablet, Univers acetaminoph 05-31 Oral, ity of en-caff 15:27: Q6HPRN, [place] (ESGIC) 07 Starting Medical 50-325-40 [facility] mg tablet 1 05/31/20 at tablet 1027, Until Discontinu ed, Routine, Pain (scale 1-3) losartan Yes 50mg 50 mg, Univers (COZAAR) 05-31 Oral, ity of tablet 50 14:00: DAILY, [place] mg 00 First dose Medical (after [place] last modificati on) on Sun05/31/20 at 0900, Until Discontinu ed, Routine metoprolol Yes 25mg 25 mg, Unive rs succinate 05-31 Oral, ity of XL (TOPROL 14:00: DAILY, [place] XL) tablet 00 First dose Med ical 25 mg (after [place] last modificati on) on Sun05/31/20 at 0900, Until Discontinu ed enoxaparin Yes 40mg 40 mg, Unive rs (LOVENOX) 05-31 Subcutaneo ity of injection 14:00: us, DAILY, [place] 40 mg 00 First dose Medical on [facility] 05/31/20 at 0900, Until Discontinu ed, Routine azaTHIOprin No 50mg 50 mg, Uni vers e (IMURAN) 05-31 04-20 Oral, ity of tablet 50 14:00: 14:19 DAILY, [place] mg 00 :13 First dose Medical on [facility] 05/31/20 at 0900, Until Discontinu ed, Routine gabapentin Yes 400mg 400 mg, Uni vers (NEURONTIN) 05-31 Oral, TID, it y of 400 mg 13:00: First dose [place] 00 on [facility] 05/31/20 at Branch 0800, Until Discontinu ed, Routine dicyclomine Yes 20mg 20 mg, Univ ers (BENTYL) 05-31 Oral, TID, ity o f tablet 20 13:00: First dose [place] mg 00 on [facility] 05/31/20 at Branch 0800, Until Discontinu ed, Routine busPIRone Yes 15mg 15 mg, Univer s (BUSPAR) 05-31 Oral, TID, ity o f tablet 15 13:00: First dose [place] mg 00 on [facility] 05/31/20 at Branch 0800, Until Discontinu ed, Routine temazepam No 15mg 15 mg, Unive rs (RESTORIL) 05-31 Oral, ity of capsule 15 06:30: 05:28 ONCE, 1 [place] mg 00 :00 dose, [facility] 05/31/20 at Branch 0130, Routine proMETHazin No 25mg 25 mg, Uni vers e 05-31 Oral, ity of (PHENERGAN) 05:29: 22:06 Q6HPRN, [place] tablet 25 16 :24 Starting Medica l mg [facility] 05/31/20 at 0029, Until [facility] 05/31/20 at 1706, Routine, Nausea and Vomiting (N/V) ampicillin Yes 2g 2,000 mg Uni vers (POLYCILLIN 05-31 (2 g), IV ity of -N) 2,000 03:00: Piggyback, [place] mg in NaCl 00 Q6H ABX, Medic al 0.9% (NS) First dose Bran ch 100 mL on Sun MINI-BAG 05/30/20 at 2200, Until Discontinu ed, 100 mL
R aurelio for Anti-Infec tive: Documented Infection< br>Documen karly Infection Site: Urine<b r>Duration of Therapy: 10 days gabapentin No 400mg 400 mg, Un matt (NEURONTIN) 05-31 Oral, TID, i ty of tablet 400 01:00: 13:39 First dose [place] mg 00 :25 on [facility] 05/30/20 at Branch 2000, Until Discontinu ed, Routine piperacilli No 3.375g 3.375 g, Univers n-tazobacta 05-30 IV ity of m (ZOSYN) 22:45: 22:40 Piggyback, [place] 3.375 g in 00 :00 ONCE, 1 Medica l NaCl 0.9% dose, [place] Branc h (NS) 100 mL 05/30/20 at MINI-BAG 1745, 100 mL
Reas on for Anti-Infec tive: Documented Infection< br>Documen karly Infection Site: Urine
D uration of Therapy: Other (see Comments) FENTanyl PF 2020- No 75ug 75 mcg, Un matt (SUBLIMAZE 05-30 Slow IV ity o f (PF)) 22:45: 21:55 Push, [place] injection 00 :00 ONCE, 1 Medical 75 mcg dose, [facility] 05/30/20 at 1745, STAT proMETHazin 2020- No 25mg 25 mg, IV Univers e 05-30 Piggyback, ity of (PHENERGAN) 22:45: 22:45 ONCE, 1 [place] 25 mg in 00 :00 dose, [place] Medica l NaCl 0.9% 05/30/20 at Bran ch (NS) 50 mL 1745, 50 piggyback mL NaCl 0.9% 2020- No 1000mL at 100 Uni vers (NS) IV 05-30 04-20 mL/hr, IV ity of infusion 22:30: 19:01 Infusion, [place] 1,000 mL 00 :49 CONTINUOUS Medic al , Starting [facility] 05/30/20 at 1730, Until 06/01/20 at 1401, Routine ondansetron Yes 4mg 4 mg, Slow Univers (ZOFRAN 18 IV Push, ity of (PF)) 22:23: Q6HPRN, [place] injection 4 13 Starting Medi bernadine mg [facility] 05/30/20 at 1723, Until Discontinu ed, Routine, Nausea and Vomiting (N/V) morpHINE 2020- No 4mg 4 mg, Slow Un matt injection 4 05-30 IV Push, ity of mg 22:23: 22:22 Q4HPRN, [place] 07 :07 Starting Medical [facility] 05/30/20 at 1723, Until 05/31/20 at 1722, Routine, Pain (scale 7-10) HYDROcodone 2020- No 1{tbl} 1 tablet, Univers -acetaminop 05-30 04-20 Oral, ity of hen (NORCO 22:23: 15:19 Q6HPRN, [place] 5) 5-325 mg 02 :39 Starting Medi bernadine tablet 1 [place] Branch tablet 05/30/20 at 1723, Until 06/01/20 at 1019, Routine, Pain (scale 4-6) acetaminoph 2020- No 650mg 650 mg, U nivers en 05-30 Oral, ity of (TYLENOL) 22:22: 15:33 Q6HPRN, [place] tablet 650 55 :25 Starting Medic al mg [place] Branch 05/30/20 at 1722, Until 05/31/20 at 1033, Routine, Pain (scale 1-3), Temp > 38.5 C oxybutynin Yes 5mg 5 mg, Univer s chloride 05-30 Oral, ity of (DITROPAN) 22:21: TIDPRN, [place] tablet 5 mg 36 Starting Medi bernadine [facility] 05/30/20 at 1721, Until Discontinu ed, Routine, Bladder spasms iohexol 2020- No [id number] 100mL 100 mL, Univers (OMNIPAQUE 05-30 Intravenou it y of 350 21:00: 20:40 s, ONCE, 1 [place] BULK-100 00 :00 dose, [place] Medica l mL) 05/30/20 at Branch injection 1600, 100 mL Routine FENTanyl PF 2020- No 50ug 50 mcg, Un matt (SUBLIMAZE 05-30 Slow IV ity o f (PF)) 21:00: 20:35 Push, [place] injection 00 :00 ONCE, 1 Medical 50 mcg dose, [place] Branch 05/30/20 at 1600, Routine ondansetron 2020- No 4mg 4 mg, Slow Univers (ZOFRAN 05-30 IV Push, ity of (PF)) 21:00: 20:22 ONCE, 1 [place] injection 4 00 :00 dose, [place] Med ical mg 05/30/20 at Branch 1600, GIGI proMETHazin 2020- No 25mg 25 mg, IV Univers e 05-27 Piggyback, ity of (PHENERGAN) 02:45: 01:47 ONCE, 1 [place] 25 mg in 00 :00 dose, [facility] Medica l NaCl 0.9% 05/26/20 at Bran ch (NS) 50 mL 2144, 50 piggyback mL butorphanol 2020- No 2mg 2 mg, IV U nivers (STADOL) 05-27 Push, ity of injection 2 02:45: 01:33 ONCE, 1 [place] mg 00 :00 dose, [facility] 05/26/20 at Branch 2145, Routine ONDANSETRON 2020- No Take by U nivers HCL (ZOFRAN 05-27 mouth. ity o f ORAL) 01:43: 00:00 [place] 58 :00 [facility] dicyclomine 2020- No 10mg Take 10 mg Univers 10 mg 05-27 by mouth. ity of capsule 01:43: 00:00 [place] 58 :00 [facility] butorphanol 2020- No 1mg 1 mg, IV U nivers (STADOL) 05-27 Push, ity of injection 1 01:30: 00:38 ONCE, 1 [place] mg 00 :00 dose, [facility] 05/26/20 at Branch 2030, Routine NaCl 0.9% 2020- No 1000mL at 999 Uni vers (NS) bolus 05-26-15 mL/hr, ity of infusion 23:30: 01:49 1,000 mL, [place] 1,000 mL 00 :00 IV Medical Infusion, [place] ONCE, 1 dose, [facility] 05/26/20 at 1830, GIGI oxybutynin 2020-0 Yes [id number] 5mg Take 1 U nivers chloride 5 4-14 tablet by ity of mg tablet 00:00: mouth 3 [place] 00 (three) Medical times Branch daily as needed for Bladder spasms. oxybutynin 2020-0 Yes [id number] 5mg Take 1 U nivers chloride 5 4-14 tablet by ity of mg tablet 00:00: mouth 3 [place] 00 (three) Medical times Branch daily as needed for Bladder spasms. oxybutynin 202-0 Yes [id number] 5mg Take 1 U nivers chloride 5 4-14 tablet by ity of mg tablet 00:00: mouth 3 [place] 00 (three) Medical times Branch daily as needed for Bladder spasms. oxybutynin 2021-0 Yes [id number] 5mg Take 1 U nivers chloride 5 4-14 tablet by ity of mg tablet 00:00: mouth (three) Medical times Branch daily as needed for Bladder spasms. oxybutynin 1-0 Yes [id number] 5mg Take 1 U nivers chloride 5 4-14 tablet by ity of mg tablet 00:00: mouth (three) Medical times Branch daily as needed for Bladder spasms. oxybutynin 1-0 Yes [id number] 5mg Take 1 U nivers chloride 5 4-14 tablet by ity of mg tablet 00:00: mouth (three) Medical times Branch daily as needed for Bladder spasms. oxybutynin 1-0 Yes [id number] 5mg Take 1 U nivers chloride 5 4-14 tablet by ity of mg tablet 00:00: mouth (three) Medical times Branch daily as needed for Bladder spasms. oxybutynin 1-0 Yes [id number] 5mg Take 1 U nivers chloride 5 4-14 tablet by ity of mg tablet 00:00: mouth (three) Medical times Branch daily as needed for Bladder spasms. oxybutynin 1-0 Yes [id number] 5mg Take 1 U nivers chloride 5 4-14 tablet by ity of mg tablet 00:00: mouth (three) Medical times Branch daily as needed for Bladder spasms. oxybutynin 1-0 Yes [id number] 5mg Take 1 U nivers chloride 5 4-14 tablet by ity of mg tablet 00:00: mouth (three) Medical times Branch daily as needed for Bladder spasms. oxybutynin 1-0 Yes [id number] 5mg Take 1 U nivers chloride 5 4-14 tablet by ity of mg tablet 00:00: mouth (three) Medical times Branch daily as needed for Bladder spasms. oxybutynin 2021-0 Yes [id number] 5mg Take 1 U nivers chloride 5 4-14 tablet by ity of mg tablet 00:00: mouth (three) Medical times Branch daily as needed for Bladder spasms. oxybutynin 2021-0 Yes [id number] 5mg Take 1 U nivers chloride 5 4-14 tablet by ity of mg tablet 00:00: mouth (three) Medical times Branch daily as needed for Bladder spasms. oxybutynin 1-0 Yes [id number] 5mg Take 1 U nivers chloride 5 4-14 tablet by ity of mg tablet 00:00: mouth (three) Medical times Branch daily as needed for Bladder spasms. oxybutynin 2020-0 Yes [id number] 5mg Take 1 U nivers chloride 5 4-14 tablet by ity of mg tablet 00:00: mouth (three) Medical times Branch daily as needed for Bladder spasms. oxybutynin 2020-0 Yes [id number] 5mg Take 1 U nivers chloride 5 4-14 tablet by ity of mg tablet 00:00: mouth (three) Medical times Branch daily as needed for Bladder spasms. oxybutynin 2020-0 Yes [id number] 5mg Take 1 U nivers chloride 5 4-14 tablet by ity of mg tablet 00:00: mouth (three) Medical times Branch daily as needed for Bladder spasms. oxybutynin 2020-0 Yes [id number] 5mg Take 1 U nivers chloride 5 4-14 tablet by ity of mg tablet 00:00: mouth (three) Medical times Branch daily as needed for Bladder spasms. oxybutynin 1-0 Yes [id number] 5mg Take 1 U nivers chloride 5 4-14 tablet by ity of mg tablet 00:00: mouth (three) Medical times Branch daily as needed for Bladder spasms. oxybutynin 1-0 Yes [id number] 5mg Take 1 U nivers chloride 5 4-14 tablet by ity of mg tablet 00:00: mouth (three) Medical times Branch daily as needed for Bladder spasms. oxybutynin 1-0 Yes [id number] 5mg Take 1 U nivers chloride 5 4-14 tablet by ity of mg tablet 00:00: mouth (three) Medical times Branch daily as needed for Bladder spasms. oxybutynin 1-0 Yes [id number] 5mg Take 1 U nivers chloride 5 4-14 tablet by ity of mg tablet 00:00: mouth (three) Medical times Branch daily as needed for Bladder spasms. oxybutynin 2020-0 Yes [id number] 5mg Take 1 U nivers chloride 5 4-14 tablet by ity of mg tablet 00:00: mouth (three) Medical times Branch daily as needed for Bladder spasms. oxybutynin 2020-0 Yes [id number] 5mg Take 1 U nivers chloride 5 4-14 tablet by ity of mg tablet 00:00: mouth (three) Medical times Branch daily as needed for Bladder spasms. oxybutynin 2020-0 Yes [id number] 5mg Take 1 U nivers chloride 5 4-14 tablet by ity of mg tablet 00:00: mouth (three) Medical times Branch daily as needed for Bladder spasms. oxybutynin 2020-0 Yes [id number] 5mg Take 1 U nivers chloride 5 4-14 tablet by ity of mg tablet 00:00: mouth (three) Medical times Branch daily as needed for Bladder spasms. phenazopyri 2020-0 Yes [id number] 200mg Take 1 Univers dine 200 mg 4-14 tablet by ity of tablet 00:00: mouth (three) Medical times Branch daily. proMETHazin 2020-0 Yes [id number] 25mg Take 1 Univers e 25 mg 4-14 tablet by ity of tablet 00:00: mouth 00 every 6 Medical (six) Branch hours as needed for Nausea and Vomiting (N/V). oxybutynin 2020-2020- No [id number] 5mg Take 1 Univers chloride 5 4-14 10-24 tablet by ity of mg tablet 00:00: 00:00 mouth 3 [place] 00 :00 (three) Medical times Branch daily as needed for Bladder spasms. proMETHazin 2020-0 2020- No [id number] 25mg Take 1 Univers e 25 mg 4-14 04-21 tablet by ity of tablet 00:00: 00:00 mouth [place] 00 :00 every 6 Medical (six) Branch hours as needed for Nausea and Vomiting (N/V). phenazopyri 2020-0 2020- No [id number] 200mg Take 1 Univers dine 200 mg 4-14 04-20 tablet by it y of tablet 00:00: 00:00 mouth 3 [place] 00 :00 (three) Medical times Branch daily. FENTanyl PF 2020- No 50ug 50 mcg, Un matt (SUBLIMAZE 05-13 Slow IV ity o f (PF)) 21:30: 20:45 Push, [place] injection 00 :00 ONCE, 1 Medical 50 mcg dose, [facility] 05/13/20 at 1630, Routine cefTRIAXone 2020- No 1000mg 1,000 mg, Univers (ROCEPHIN) 05-13 IV ity of 1,000 mg in 21:30: 21:22 Piggyback, [place] NaCl 0.9% 00 :00 ONCE, 1 Medical (NS) 50 mL dose, [facility] Bran ch MINI-BAG 05/13/20 at 1630, 50 mL
Reas on for Anti-Infec tive: Empiric Therapy for Suspected Infection< br>Empiric Therapy Site: Urine
D uration of therapy: 72 hours proMETHazin 2020- No 25mg 25 mg, IV Univers e 05-13 Piggyback, ity of (PHENERGAN) 21:30: 20:47 ONCE, 1 [place] 25 mg in 00 :00 dose, [facility] Medica l NaCl 0.9% 05/13/20 at Bran h (NS) 50 mL 1630, 50 piggyback mL metoclopram 2020- No 10mg 10 mg, Uni vers marilyn HCl 05-13 Slow IV ity of (REGLAN) 19:15: 19:04 Push, [place] injection 00 :00 ONCE, 1 Medical 10 mg dose, [facility] Branch 05/13/20 at 1415, GIGI FENTanyl PF 2020- No 50ug 50 mcg, Un matt (SUBLIMAZE 05-13 Slow IV ity o f (PF)) 19:00: 18:57 Push, [place] injection 00 :00 ONCE, 1 Medical 50 mcg dose, [facility] 05/13/20 at 1400, Routine morpHINE 2020- No 4mg 4 mg, Slow Un matt injection 4 05-13 IV Push, ity of mg 17:45: 16:56 ONCE, 1 [place] 00 :00 dose, [facility] 05/13/20 at Branch 1245, STAT ondansetron 2020- No 4mg 4 mg, Slow Univers (ZOFRAN 05-13 IV Push, ity of (PF)) 17:45: 16:55 ONCE, 1 [place] injection 4 00 :00 dose, [facility] Med ical mg 05/13/20 at Branch 1245, GIGI iohexol 2020- No [id number] 120mL 120 mL, Univers (OMNIPAQUE 05-13 Intravenou it y of 350 17:30: 17:22 s, ONCE, 1 [place] BULK-150 00 :00 dose, [facility] Medica l mL) 05/13/20 at Branch injection 1230, 120 mL Routine NaCl 0.9% 2020- No 1000mL at 999 Uni vers (NS) bolus 05-13 mL/hr, ity of infusion 16:45: 20:00 1,000 mL, [place] 1,000 mL 00 :00 IV Medical Infusion, Branch ONCE, 1 dose, [facility] 05/13/20 at 1145, GIGI proMETHazin Yes [id number] 25mg Take 1 Univers e 25 mg 4-01 tablet by ity of tablet 00:00: mouth [place] 00 every 6 Medical (six) Branch hours as needed for Nausea and Vomiting (N/V). proMETHazin Yes [id number] 25mg Take 1 Univers e 25 mg 4-01 tablet by ity of tablet 00:00: mouth [place] 00 every 6 Medical (six) Branch hours as needed for Nausea and Vomiting (N/V). proMETHazin 2020- No [id number] 25mg Take 1 Univers e 25 mg -02 15-14 tablet by ity of tablet 00:00: 00:00 mouth [place] 00 :00 every 6 Medical (six) Branch hours as needed for Nausea and Vomiting (N/V). cefpodoxime 2020- No [id number] 100mg Take 1 Univers 100 mg 05-13-09 tablet by ity of tablet 00:00: 04:59 mouth 2 [place] 00 :00 (two) Medical times Branch daily for 7 days. erenumab-ao Yes 140mg inject 140 Univers oe (AIMOVIG 3-08 mg under ity of AUTOINJECTO 00:00: the skin [place] R) 140 00 once every Medical mg/mL AtIn month. [place] erenumab-ao Yes 140mg inject 140 Univers oe (AIMOVIG 3-08 mg under ity of AUTOINJECTO 00:00: the skin [place] R) 140 00 once every Medical mg/mL AtIn month. Branch erenumab-ao Yes 140mg inject 140 Univers oe (AIMOVIG 3-08 mg under ity of AUTOINJECTO 00:00: the skin [place] R) 140 00 once every Medical mg/mL AtIn month. Nini erenumab-ao Yes 140mg inject 140 Univers oe (AIMOVIG 3-08 mg under ity of AUTOINJECTO 00:00: the skin [place] R) 140 00 once every Medical mg/mL AtIn month. Nini erenumab-ao Yes 140mg inject 140 Univers oe (AIMOVIG 3-08 mg under ity of AUTOINJECTO 00:00: the skin [place] R) 140 00 once every Medical mg/mL AtIn month. Branch erenumab-ao Yes 140mg inject 140 Univers oe (AIMOVIG 3-08 mg under ity of AUTOINJECTO 00:00: the skin [place] R) 140 00 once every Medical mg/mL AtIn month. Nini erenumab-ao Yes 140mg inject 140 Univers oe (AIMOVIG 3-08 mg under ity of AUTOINJECTO 00:00: the skin [place] R) 140 00 once every Medical mg/mL AtIn month. Branch erenumab-ao Yes 140mg inject 140 Univers oe (AIMOVIG 3-08 mg under ity of AUTOINJECTO 00:00: the skin [place] R) 140 00 once every Medical mg/mL AtIn month. Branch erenumab-ao Yes 140mg inject 140 Univers oe (AIMOVIG 3-08 mg under ity of AUTOINJECTO 00:00: the skin [place] R) 140 00 once every Medical mg/mL AtIn month. Nini erenumab-ao Yes 140mg inject 140 Univers oe (AIMOVIG 3-08 mg under ity of AUTOINJECTO 00:00: the skin [place] R) 140 00 once every Medical mg/mL AtIn month. Branch erenumab-ao Yes 140mg inject 140 Univers oe (AIMOVIG 3-08 mg under ity of AUTOINJECTO 00:00: the skin [place] R) 140 00 once every Medical mg/mL AtIn month. Branch erenumab-ao Yes 140mg inject 140 Univers oe (AIMOVIG 3-08 mg under ity of AUTOINJECTO 00:00: the skin [place] R) 140 00 once every Medical mg/mL AtIn month. Branch erenumab-ao Yes 140mg inject 140 Univers oe (AIMOVIG 3-08 mg under ity of AUTOINJECTO 00:00: the skin [place] R) 140 00 once every Medical mg/mL AtIn month. Nini erenumab-ao Yes 140mg inject 140 Univers oe (AIMOVIG 3-08 mg under ity of AUTOINJECTO 00:00: the skin [place] R) 140 00 once every Medical mg/mL AtIn month. Branch erenumab-ao Yes 140mg inject 140 Univers oe (AIMOVIG 3-08 mg under ity of AUTOINJECTO 00:00: the skin [place] R) 140 00 once every Medical mg/mL AtIn month. Nini erenumab-ao Yes 140mg inject 140 Univers oe (AIMOVIG 3-08 mg under ity of AUTOINJECTO 00:00: the skin [place] R) 140 00 once every Medical mg/mL AtIn month. Branch erenumab-ao Yes 140mg inject 140 Univers oe (AIMOVIG 3-08 mg under ity of AUTOINJECTO 00:00: the skin [place] R) 140 00 once every Medical mg/mL AtIn month. Branch erenumab-ao Yes 140mg inject 140 Univers oe (AIMOVIG 3-08 mg under ity of AUTOINJECTO 00:00: the skin [place] R) 140 00 once every Medical mg/mL AtIn month. Branch erenumab-ao Yes 140mg inject 140 Univers oe (AIMOVIG 3-08 mg under ity of AUTOINJECTO 00:00: the skin [place] R) 140 00 once every Medical mg/mL AtIn month. Branch erenumab-ao Yes 140mg inject 140 Univers oe (AIMOVIG 3-08 mg under ity of AUTOINJECTO 00:00: the skin [place] R) 140 00 once every Medical mg/mL AtIn month. Branch erenumab-ao Yes 140mg inject 140 Univers oe (AIMOVIG 3-08 mg under ity of AUTOINJECTO 00:00: the skin [place] R) 140 00 once every Medical mg/mL AtIn month. Branch erenumab-ao Yes 140mg inject 140 Univers oe (AIMOVIG 3-08 mg under ity of AUTOINJECTO 00:00: the skin [place] R) 140 00 once every Medical mg/mL AtIn month. Branch erenumab-ao Yes 140mg inject 140 Univers oe (AIMOVIG 3-08 mg under ity of AUTOINJECTO 00:00: the skin [place] R) 140 00 once every Medical mg/mL AtIn month. Branch erenumab-ao Yes 140mg inject 140 Univers oe (AIMOVIG 3-08 mg under ity of AUTOINJECTO 00:00: the skin [place] R) 140 00 once every Medical mg/mL AtIn month. Branch erenumab-ao Yes 140mg inject 140 Univers oe (AIMOVIG 3-08 mg under ity of AUTOINJECTO 00:00: the skin [place] R) 140 00 once every Medical mg/mL AtIn month. Branch erenumab-ao Yes 140mg inject 140 Univers oe (AIMOVIG 3-08 mg under ity of AUTOINJECTO 00:00: the skin [place] R) 140 00 once every Medical mg/mL AtIn month. Branch erenumab-ao 2020- No 140mg inject 140 Univers oe (AIMOVIG 3-08 08-31 mg under ity of AUTOINJECTO 00:00: 00:00 the skin [place] R) 140 00 :00 once every Medical mg/mL AtIn month. Nini erenumab-ao 2020- No 140mg inject 140 Univers oe (AIMOVIG 3-08 08-31 mg under ity of AUTOINJECTO 00:00: 00:00 the skin [place] R) 140 00 :00 once every Medical mg/mL AtIn month. Branch metoprolol Yes Take by Uni vers succinate 2-09 mouth. ity of (TOPROL XL 15:51: [place] ORAL) 34 Medical Branch metoprolol Yes Take by Uni vers succinate 2-09 mouth. ity of (TOPROL XL 15:51: [place] ORAL) 34 Medical Branch metoprolol Yes Take by Uni vers succinate 2-09 mouth. ity of (TOPROL XL 15:51: [place] ORAL) 34 Medical Branch metoprolol Yes Take by Uni vers succinate 2-09 mouth. ity of (TOPROL XL 15:51: [place] ORAL) Medical Branch metoprolol Yes Take by Uni vers succinate 2-09 mouth. ity of (TOPROL XL 15:51: [place] ORAL) 34 Medical Branch metoprolol Yes Take by Uni vers succinate 2-09 mouth. ity of (TOPROL XL 15:51: [place] ORAL) Medical Branch metoprolol Yes Take by Uni vers succinate 2-09 mouth. ity of (TOPROL XL 15:51: [place] ORAL) Medical Branch metoprolol Yes Take by Uni vers succinate 2-09 mouth. ity of (TOPROL XL 15:51: [place] ORAL) Medical Branch metoprolol Yes Take by Uni vers succinate 2-09 mouth. ity of (TOPROL XL 15:51: [place] ORAL) Medical Branch gabapentin 0 Yes [id number] 400mg Take 1 [facility] 400 mg 2-09 capsule by ity of capsule 00:00: mouth 3 (three) Medical times Branch daily. gabapentin 2020-0 Yes [id number] 400mg Take 1 [facility] 400 mg 2-09 capsule by ity of capsule 00:00: mouth 3 (three) Medical times Branch daily. gabapentin 2020-0 Yes [id number] 400mg Take 1 [facility] 400 mg 2-09 capsule by ity of capsule 00:00: mouth 3 00 (three) Medical times Branch daily. gabapentin 2020- Yes [id number] 400mg Take 1 [facility] 400 mg 2-09 capsule by ity of capsule 00:00: mouth 3 [place] 00 (three) Medical times Branch daily. gabapentin 2021-0 Yes [id number] 400mg Take 1 [facility] 400 mg 2-09 capsule by ity of capsule 00:00: mouth 3 [place] (three) Medical times Branch daily. gabapentin 2021-0 Yes [id number] 400mg Take 1 [facility] 400 mg 2-09 capsule by ity of capsule 00:00: mouth 3 [place] (three) Medical times Branch daily. gabapentin 2020-0 Yes [id number] 400mg Take 1 [facility] 400 mg 2-09 capsule by ity of capsule 00:00: mouth 3 [place] 00 (three) Medical times Branch daily. gabapentin 202-0 Yes [id number] 400mg Take 1 [facility] 400 mg 2-09 capsule by ity of capsule 00:00: mouth 3 [place] (three) Medical times Branch daily. gabapentin 2020-0 Yes [id number] 400mg Take 1 [facility] 400 mg 2-09 capsule by ity of capsule 00:00: mouth 3 [place] (three) Medical times Branch daily. gabapentin 2020-0 Yes [id number] 400mg Take 1 [facility] 400 mg 2-09 capsule by ity of capsule 00:00: mouth 3 [place] (three) Medical times Branch daily. gabapentin 202-0 2021- No [id number] 400mg Take 1 [facility] 400 mg 2-09 05-17 capsule by ity of capsule 00:00: 00:00 mouth 3 [place] 00 :00 (three) Medical times Branch daily. gabapentin 2020-0 Yes 300mg Take 1 Univ ers 300 mg 2-04 capsule by ity of capsule 00:00: mouth 3 [place] 00 (three) Medical times Branch daily. gabapentin 202-0 2021- No 300mg Take 1 Uni vers 300 mg 2-04 02-09 capsule by ity of capsule 00:00: 00:00 mouth 3 [place] 00 :00 (three) Medical times Branch daily. gabapentin 2021-0 2021- No 300mg Take 1 Uni vers 300 mg 2-04 02-09 capsule by ity of capsule 00:00: 00:00 mouth 3 [place] 00 :00 (three) Medical times Branch daily. FENTanyl PF 2019- 2020- No 50ug 50 mcg, Un matt (SUBLIMAZE 0- 10 Slow IV ity o f (PF)) 20:00: 07:59 Push, [place] injection 00 :00 ONCE, 1 Medical 50 mcg dose, [facility] 12/08/19 at 1500, STAT proMETHazin 2019-02- No 12.5mg 12.5 mg, Univers e 012-07 IV ity of (PHENERGAN) 18:45: 17:52 Piggyback, [place] 12.5 mg in 00 :00 ONCE, 1 Medica l NaCl 0.9% dose, [facility] Branc h (NS) 50 mL 12/08/19 piggyback at 1345, 50 mL metoclopram 2019-02- No 10mg 10 mg, Uni vers marilyn HCl 012-07 Slow IV ity of (REGLAN) 17:45: 17:07 Push, [place] injection 00 :00 ONCE, 1 Medical 10 mg dose, [facility] Branch 12/08/19 at 1245, GIGI FENTanyl PF 2019-02 2020- No 50ug 50 mcg, Un matt (SUBLIMAZE 12-07 Slow IV ity o f (PF)) 17:45: 17:07 Push, [place] injection 00 :00 ONCE, 1 Medical 50 mcg dose, [facility] 12/08/19 at 1245, STAT GABAPENTIN 2019-02 Yes TAKE 1 Unive rs 300 mg 0-26 CAPSULE BY ity of capsule 00:00: MOUTH [place] 00 THREE Medical TIMES A Branch DAY GABAPENTIN 2019-02 Yes TAKE 1 Unive rs 300 mg 0-26 CAPSULE BY ity of capsule 00:00: MOUTH [place] 00 THREE Medical TIMES A Branch DAY proMETHazin 2019-02 Yes [id number] 25mg Take 1 Univers e 25 mg 0-26 tablet by ity of tablet 00:00: mouth [place] 00 every 6 Medical (six) Branch hours as needed for Nausea and Vomiting (N/V). GABAPENTIN 2019-02 Yes TAKE 1 Unive rs 300 mg 0-26 CAPSULE BY ity of capsule 00:00: MOUTH [place] 00 THREE Medical TIMES A Branch DAY proMETHazin 2019-02 Yes [id number] 25mg Take 1 Univers e 25 mg 0-26 tablet by ity of tablet 00:00: mouth [place] 00 every 6 Medical (six) Branch hours as needed for Nausea and Vomiting (N/V). GABAPENTIN 2019-02 Yes TAKE 1 Unive rs 300 mg 0-26 CAPSULE BY ity of capsule 00:00: MOUTH [place] 00 THREE Medical TIMES A Branch DAY proMETHazin 2019- Yes [id number] 25mg Take 1 Univers e 25 mg 0-26 tablet by ity of tablet 00:00: mouth [place] 00 every 6 Medical (six) Branch hours as needed for Nausea and Vomiting (N/V). proMETHazin 2019- Yes [id number] 25mg Take 1 Univers e 25 mg 0-26 tablet by ity of tablet 00:00: mouth [place] 00 every 6 Medical (six) Branch hours as needed for Nausea and Vomiting (N/V). proMETHazin 2019- Yes [id number] 25mg Take 1 Univers e 25 mg 0-26 tablet by ity of tablet 00:00: mouth [place] 00 every 6 Medical (six) Branch hours as needed for Nausea and Vomiting (N/V). proMETHazin 2019- Yes [id number] 25mg Take 1 Univers e 25 mg 0-26 tablet by ity of tablet 00:00: mouth [place] 00 every 6 Medical (six) Branch hours as needed for Nausea and Vomiting (N/V). proMETHazin 2019- Yes [id number] 25mg Take 1 Univers e 25 mg 0-26 tablet by ity of tablet 00:00: mouth [place] 00 every 6 Medical (six) Branch hours as needed for Nausea and Vomiting (N/V). proMETHazin 2019- Yes [id number] 25mg Take 1 Univers e 25 mg 0-26 tablet by ity of tablet 00:00: mouth [place] 00 every 6 Medical (six) Branch hours as needed for Nausea and Vomiting (N/V). proMETHazin 2019- Yes [id number] 25mg Take 1 Univers e 25 mg 0-26 tablet by ity of tablet 00:00: mouth [place] 00 every 6 Medical (six) Branch hours as needed for Nausea and Vomiting (N/V). proMETHazin 2019- Yes [id number] 25mg Take 1 Univers e 25 mg 0-26 tablet by ity of tablet 00:00: mouth [place] 00 every 6 Medical (six) Branch hours as needed for Nausea and Vomiting (N/V). proMETHazin 2019-2020- No [id number] 25mg Take 1 Univers e 25 mg 0-26 04-01 tablet by ity of tablet 00:00: 00:00 mouth [place] 00 :00 every 6 Medical (six) Branch hours as needed for Nausea and Vomiting (N/V). GABAPENTIN 2019-02- No TAKE 1 Univ ers 300 mg 0- 02-04 CAPSULE BY ity of capsule 00:00: 00:00 MOUTH [place] 00 :00 THREE Medical TIMES A Branch DAY acetaminoph 2019-02- No [id number] 1{tbl} Take 1 U nivers en-codeine 0- 11-03 tablet by ity of (TYLENOL-CO 00:00: 05:59 [place] DEINE #4[place] 00 :00 every 4 Medical 300-60 mg (four) Branch tablet hours as needed for Pain for up to 7 days. Indication s: acute pain acetaminoph 2019-02- No 4647 1{tbl} Take 1 U nivers en-codeine 0- 11-03 tablet by ity of (TYLENOL-CO 00:00: 05:59 [place] DE[place] #4[place] 00 :00 every 4 Medical 300-60 mg (four) Branch tablet hours as needed for Pain for up to 7 days. Indication s: acute pain acetaminoph 2019-02- No 4647 1{tbl} Take 1 U nivers en-codeine 0- 11-03 tablet by ity of (TYLENOL-CO 00:00: 05:59 [place] DE[place] #4[place] 00 :00 every 4 Medical 300-60 mg (four) Branch tablet hours as needed for Pain for up to 7 days. Indication s: acute pain busPIRone 5 2019-02 Yes Univer s mg tablet 0-23 ity of 00:00: Medical Branch busPIRone 5 2019-02 Yes Univer s mg tablet 0-23 ity of 00:00: Medical Branch busPIRone 5 2019-02 Yes Univer s mg tablet 0-23 ity of 00:00: Medical Branch busPIRone 5 2019-02 Yes Univer s mg tablet 0-23 ity of 00:00: Medical Branch busPIRone 5 2019-02 Yes Univer s mg tablet 0-23 ity of 00:00: Medical Branch busPIRone 5 2019-02 Yes Univer s mg tablet 0-23 ity of 00:00: Medical Branch busPIRone 5 2020-1 Yes Univer s mg tablet 0-23 ity of 00:00: [place] [facility] busPIRone 5 2020- Yes Univer s mg tablet 0-23 ity of 00:00: [place] [facility] busPIRone 5 2020-1 Yes Univer s mg tablet 0-23 ity of 00:00: [place] [facility] busPIRone 5 2020- Yes Univer s mg tablet 0-23 ity of 00:00: [place] [facility] busPIRone 5 2019- Yes Univer s mg tablet 0-23 ity of 00:00: [place] [facility] busPIRone 5 2019- Yes Univer s mg tablet 0-23 ity of 00:00: [place] [facility] busPIRone 5 2020- Yes Univer s mg tablet 0-23 ity of 00:00: [place] [facility] busPIRone 5 2019-2020- No Unive rs mg tablet 0-23 -18 ity of 00:00: 00:00 [place] 00 :00 Medical Branch losartan 50 2020-0 Yes 50mg Take 50 mg Univers mg tablet 9-21 by mouth ity of 00:00: daily. [place] [facility] losartan 50 2020-0 Yes 50mg Take 50 mg Univers mg tablet 9-21 by mouth ity of 00:00: daily. [place] [facility] losartan 50 2020-0 Yes 50mg Take 50 mg Univers mg tablet 9-21 by mouth ity of 00:00: daily. [place] [facility] losartan 50 2020-0 Yes 50mg Take 50 mg [facility] mg tablet 9-21 by mouth ity of 00:00: daily. [place] [facility] losartan 50 2020-0 Yes 50mg Take 50 mg Univers mg tablet 9-21 by mouth ity of 00:00: daily. [place] [facility] losartan 50 2020-0 Yes 50mg Take 50 mg [facility] mg tablet 9-21 by mouth ity of 00:00: daily. [place] [facility] losartan 50 2020-0 Yes 50mg Take 50 mg [facility] mg tablet 9-21 by mouth ity of 00:00: daily. [place] [facility] losartan 50 2020-0 Yes 50mg Take 50 mg [facility] mg tablet 9-21 by mouth ity of 00:00: daily. [place] [address] Medical Branch losartan 50 2020-0 Yes 50mg Take 50 mg Univers mg tablet 9-21 by mouth ity of 00:00: daily. [place] [facility] Branch losartan 50 2020-0 Yes 50mg Take 50 mg Univers mg tablet 9-21 by mouth ity of 00:00: daily. [place] [facility] Branch losartan 50 2020-0 Yes 50mg Take 50 mg Univers mg tablet 9-21 by mouth ity of 00:00: daily. [place] [facility] Branch losartan 50 2020-0 Yes 50mg Take 50 mg Univers mg tablet 9-21 by mouth ity of 00:00: daily. [place] [facility] Branch losartan 50 2020-0 Yes 50mg Take 50 mg Univers mg tablet 9-21 by mouth ity of 00:00: daily. [place] [facility] Branch losartan 50 2020-0 Yes 50mg Take 50 mg Univers mg tablet 9-21 by mouth ity of 00:00: daily. [place] [facility] Branch losartan 50 2020-0 Yes 50mg Take 50 mg Univers mg tablet 9-21 by mouth ity of 00:00: daily. [place] [facility] Branch losartan 50 2020-0 Yes 50mg Take 50 mg Univers mg tablet 9-21 by mouth ity of 00:00: daily. [place] [facility] Branch losartan 50 2020-0 Yes 50mg Take 50 mg Univers mg tablet 9-21 by mouth ity of 00:00: daily. [place] [facility] Branch losartan 50 2020-0 Yes 50mg Take 50 mg Univers mg tablet 9-21 by mouth ity of 00:00: daily. [place] [facility] Branch losartan 50 2020-0 Yes 50mg Take 50 mg Univers mg tablet 9-21 by mouth ity of 00:00: daily. [place] [facility] losartan 50 2020-0 Yes 50mg Take 50 mg Univers mg tablet 9-21 by mouth ity of 00:00: daily. [place] [facility] Branch losartan 50 2020-0 Yes 50mg Take 50 mg Univers mg tablet 9-21 by mouth ity of 00:00: daily. [place] [facility] Branch losartan 50 2020-0 Yes 50mg Take 50 mg Univers mg tablet 9-21 by mouth ity of 00:00: daily. [place] [facility] Branch losartan 50 2020-0 Yes 50mg Take 50 mg Univers mg tablet 9-21 by mouth ity of 00:00: daily. [place] [facility] Branch losartan 50 2020-0 Yes 50mg Take 50 mg Univers mg tablet 9-21 by mouth ity of 00:00: daily. Medical Branch losartan 50 2020-0 Yes 50mg Take 50 mg [facility] mg tablet 9-21 by mouth ity of 00:00: daily. [place] [facility] losartan 50 2020-0 Yes 50mg Take 50 mg [facility] mg tablet 9-21 by mouth ity of 00:00: daily. [place] [facility] losartan 50 2020-0 Yes 50mg Take 50 mg [facility] mg tablet 9-21 by mouth ity of 00:00: daily. [place] [facility] losartan 50 2020-0 Yes 50mg Take 50 mg [facility] mg tablet 9-21 by mouth ity of 00:00: daily. [place] [facility] losartan 50 2020-0 Yes 50mg Take 50 mg [facility] mg tablet 9-21 by mouth ity of 00:00: daily. [place] [facility] losartan 50 2020-0 Yes 50mg Take 50 mg [facility] mg tablet 9-21 by mouth ity of 00:00: daily. [place] [facility] losartan 50 2020-0 Yes 50mg Take 50 mg [facility] mg tablet 9-21 by mouth ity of 00:00: daily. [place] [facility] losartan 50 2020-0 Yes 50mg Take 50 mg [facility] mg tablet 9-21 by mouth ity of 00:00: daily. [place] [facility] losartan 50 2020-0 Yes 50mg Take 50 mg [facility] mg tablet 9-21 by mouth ity of 00:00: daily. [place] [facility] losartan 50 2020-0 Yes 50mg Take 50 mg [facility] mg tablet 9-21 by mouth ity of 00:00: daily. [place] [facility] losartan 50 2020-0 Yes 50mg Take 50 mg [facility] mg tablet 9-21 by mouth ity of 00:00: daily. [place] [facility] losartan 50 2020-0 Yes 50mg Take 50 mg [facility] mg tablet 9-21 by mouth ity of 00:00: daily. [place] [facility] losartan 50 2020-0 Yes 50mg Take 50 mg [facility] mg tablet 9-21 by mouth ity of 00:00: daily. [place] [facility] losartan 50 2020-0 Yes 50mg Take 50 mg [facility] mg tablet 9-21 by mouth ity of 00:00: daily. [place] [address] Medical Branch losartan 50 2020-0 2021- No 100mg Take 100 Univers mg tablet 9-21 10-31 mg by ity of 00:00: 00:00 mouth [place] 00 :00 daily. Medical Branch AIMOVIG 2019-0 Yes INJECT 140 Univ ers AUTOINJECTO 9-09 MG UNDER ity of R 140 mg/mL 00:00: [place]IN [place] AtIn 00 ONCE EVERY Medical MONTH. Branch AIMOVIG 2020-0 Yes INJECT 140 Univ ers AUTOINJECTO 9-09 MG UNDER ity of R 140 mg/mL 00:00: [place] SKIN [place] [facility] 00 ONCE EVERY Medical MONTH. Branch AIMOVIG 2020-0 Yes INJECT 140 Univ ers AUTOINJECTO 9-09 MG UNDER ity of R 140 mg/mL 00:00: THE SKIN [place] [facility] 00 ONCE EVERY Medical MONTH. Branch AIMOVIG 2020-0 Yes INJECT 140 Univ ers AUTOINJECTO 9-09 MG UNDER ity of R 140 mg/mL 00:00: THE SKIN [place] [facility] 00 ONCE EVERY Medical MONTH. Branch AIMOVIG 2020-0 Yes INJECT 140 Univ ers AUTOINJECTO 9-09 MG UNDER ity of R 140 mg/mL 00:00: THE SKIN [place] [facility] 00 ONCE EVERY Medical MONTH. Branch AIMOVIG 2020-0 Yes INJECT 140 Univ ers AUTOINJECTO 9-09 MG UNDER ity of R 140 mg/mL 00:00: THE SKIN [place] [facility] 00 ONCE EVERY Medical MONTH. Branch AIMOVIG 2020-0 Yes INJECT 140 Univ ers AUTOINJECTO 9-09 MG UNDER ity of R 140 mg/mL 00:00: THE SKIN [place] At[facility] 00 ONCE EVERY Medical MONTH. Branch AIMOVIG 2020-0 Yes INJECT 140 Univ ers AUTOINJECTO 9-09 MG UNDER ity of R 140 mg/mL 00:00: THE SKIN [place] At[facility] 00 ONCE EVERY Medical MONTH. Branch AIMOVIG 2020-0 Yes INJECT 140 Univ ers AUTOINJECTO 9-09 MG UNDER ity of R 140 mg/mL 00:00: THE SKIN [place] At[facility] 00 ONCE EVERY Medical MONTH. Branch AIMOVIG 2020-0 Yes INJECT 140 Univ ers AUTOINJECTO 9-09 MG UNDER ity of R 140 mg/mL 00:00: THE SKIN [place] At[facility] 00 ONCE EVERY Medical MONTH. Branch AIMOVIG 2020-0 Yes INJECT 140 Univ ers AUTOINJECTO 9-09 MG UNDER ity of R 140 mg/mL 00:00: THE SKIN [place] At[facility] 00 ONCE EVERY Medical MONTH. Branch AIMOVIG 2020-0 Yes INJECT 140 Univ ers AUTOINJECTO 9-09 MG UNDER ity of R 140 mg/mL 00:00: THE SKIN [place] [facility] 00 ONCE EVERY Medical MONTH. Branch AIMOVIG 2020-0 2020- No INJECT 140 Uni vers AUTOINJECTO 9-09 03-08 MG UNDER ity of R 140 mg/mL 00:00: 00:00 THE SKIN [place] AtIn 00 :00 ONCE EVERY Medical MONTH. Branch GABAPENTIN 2020-0 Yes TAKE 1 Unive rs 300 mg 8-12 CAPSULE BY ity of capsule 00:00: MOUTH [place] 00 THREE Medical TIMES A Branch DAY GABAPENTIN 2020-0 Yes TAKE 1 Unive rs 300 mg 8-12 CAPSULE BY ity of capsule 00:00: MOUTH [place] 00 THREE Medical TIMES A Branch DAY GABAPENTIN 2020-0 Yes TAKE 1 Unive rs 300 mg 8-12 CAPSULE BY ity of capsule 00:00: MOUTH [place] 00 THREE Medical TIMES A Branch DAY GABAPENTIN 2020-0 Yes TAKE 1 Unive rs 300 mg 8-12 CAPSULE BY ity of capsule 00:00: MOUTH [place] 00 THREE Medical TIMES A Branch DAY GABAPENTIN 2020-0 Yes TAKE 1 Unive rs 300 mg 8-12 CAPSULE BY ity of capsule 00:00: MOUTH [place] 00 THREE Medical TIMES A Branch DAY GABAPENTIN 2020-0 Yes TAKE 1 Unive rs 300 mg 8-12 CAPSULE BY ity of capsule 00:00: MOUTH [place] 00 THREE Medical TIMES A Branch DAY GABAPENTIN 2020-0 2020- No TAKE 1 Univ ers 300 mg 8-12 10-26 CAPSULE BY ity of capsule 00:00: 00:00 MOUTH [place] 00 :00 THREE Medical TIMES A Branch DAY GABAPENTIN 2020-0 2020- No TAKE 1 Univ ers 300 mg 8-12 10-26 CAPSULE BY ity of capsule 00:00: 00:00 MOUTH [place] 00 :00 THREE Medical TIMES A Branch DAY GABAPENTIN 2020-0 2020- No TAKE 1 Univ ers 300 mg 8-12 10-26 CAPSULE BY ity of capsule 00:00: 00:00 MOUTH [place] 00 :00 THREE Medical TIMES A Branch DAY GABAPENTIN 2020-0 Yes TAKE 1 Unive rs 300 mg 6-25 CAPSULE BY ity of capsule 00:00: MOUTH [place] 00 THREE Medical TIMES A Branch DAY GABAPENTIN 2020-0 2020- No TAKE 1 Univ ers 300 mg 6-25 08-12 CAPSULE BY ity of capsule 00:00: 00:00 MOUTH [place] 00 :00 THREE Medical TIMES A Branch DAY gabapentin 2020-0 Yes 300mg Take 1 Univ ers 300 mg - capsule by ity of capsule 00:00: mouth 3 00 (three) Medical times Branch daily. gabapentin 2020-0 2020- No 300mg Take 1 Uni vers 300 mg 05-21- capsule by ity of capsule 00:00: 00:00 mouth 3 00 :00 (three) Medical times Branch daily. erenumab-ao 2020-0 Yes 140mg inject 140 Univers oe (AIMOVIG 3-13 mg under ity of AUTOINJECTO 00:00: the skin [place] R) 140 00 once every Medical mg/mL AtIn month. Branch gabapentin 2020-0 Yes 300mg Take 1 Univ ers 300 mg 3- capsule by ity of capsule 00:00: mouth 3 00 (three) Medical times Branch daily. erenumab-ao 2020-0 Yes 140mg inject 140 Univers oe (AIMOVIG 3-13 mg under ity of AUTOINJECTO 00:00: the skin [place] R) 140 00 once every Medical mg/mL AtIn month. Branch erenumab-ao 2020-0 Yes 140mg inject 140 Univers oe (AIMOVIG 3-13 mg under ity of AUTOINJECTO 00:00: the skin [place] R) 140 00 once every Medical mg/mL AtIn month. Branch erenumab-ao 2020-0 Yes 140mg inject 140 Univers oe (AIMOVIG 3-13 mg under ity of AUTOINJECTO 00:00: the skin [place] R) 140 00 once every Medical mg/mL AtIn month. Branch erenumab-ao 2020-0 Yes 140mg inject 140 Univers oe (AIMOVIG 3-13 mg under ity of AUTOINJECTO 00:00: the skin [place] R) 140 00 once every Medical mg/mL AtIn month. Branch erenumab-ao 2020-0 2020- No 140mg inject 140 Univers oe (AIMOVIG 3-13 09-09 mg under ity of AUTOINJECTO 00:00: 00:00 [place] R) 140 00 :00 once every Medical mg/mL AtIn month. Branch gabapentin 2020-0 2020- No 300mg Take 1 Uni vers 300 mg 04-24 04-09 capsule by ity of capsule 00:00: 00:00 mouth 3 [place] 00 :00 (three) Medical times Branch daily. divalproex 2020-0 Yes [id number] 250mg Take 1 Univers 250 mg EC 3-05 tablet by ity o f tablet 00:00: mouth [place] 00 every 12 Medical (twelve) Branch hours. divalproex 2020-0 Yes [id number] 250mg Take 1 Univers 250 mg EC 3-05 tablet by ity o f tablet 00:00: mouth [place] 00 every 12 Medical (twelve) Branch hours. divalproex 2020-0 Yes [id number] 250mg Take 1 Univers 250 mg EC 3-05 tablet by ity o f tablet 00:00: mouth [place] 00 every 12 Medical (twelve) Branch hours. divalproex 2020-0 Yes [id number] 250mg Take 1 Univers 250 mg EC 3-05 tablet by ity o f tablet 00:00: mouth [place] 00 every 12 Medical (twelve) Branch hours. divalproex 2020-0 Yes [id number] 250mg Take 1 Univers 250 mg EC 3-05 tablet by ity o f tablet 00:00: mouth [place] 00 every 12 Medical (twelve) Branch hours. divalproex 2020-0 Yes [id number] 250mg Take 1 Univers 250 mg EC 2-28 tablet by ity o f tablet 00:00: mouth [place] 00 every 12 Medical (twelve) Branch hours. divalproex 2020-0 2020- No [id number] 250mg Take 1 Univers 250 mg EC 2-28 03-05 tablet by ity of tablet 00:00: 00:00 mouth [place] 00 :00 every 12 Medical (twelve) Branch hours. divalproex 2020-0 2020- No [id number] 250mg Take 1 Univers 250 mg EC 2-28 03-05 tablet by ity of tablet 00:00: 00:00 mouth [place] 00 :00 every 12 Medical (twelve) Branch hours. divalproex 2020-0 2020- No [id number] 250mg Take 1 Univers 250 mg EC 2-28 03-05 tablet by ity of tablet 00:00: 00:00 mouth [place] 00 :00 every 12 Medical (twelve) Branch hours. divalproex 2020-0 2020- No [id number] 250mg Take 1 Univers 250 mg EC 2-28 03-05 tablet by ity of tablet 00:00: 00:00 mouth [place] 00 :00 every 12 Medical (twelve) Branch hours. pregabalin 2020-0 2020- No 75mg Take 75 mg Univers (LYRICA) 50 2-14 02-14 by mouth 2 i ty of mg capsule 16:39: 00:00 (two) [place] 16 :00 times Medical daily. Branch pregabalin 2020-0 2020- No 75mg Take 75 mg Univers (LYRICA) 50 2-14 02-14 by mouth 2 i ty of mg capsule 16:39: 00:00 (two) [place] 16 :00 times Medical daily. Branch divalproex 2020-0 Yes [id number] 125mg Take 1 Univers 125 mg EC 2-14 tablet by ity o f tablet 00:00: mouth [place] 00 every 12 Medical (twelve) Branch hours. divalproex 2020-0 Yes [id number] 125mg Take 1 Univers 125 mg EC 2-14 tablet by ity o f tablet 00:00: mouth [place] 00 every 12 Medical (twelve) Branch hours. divalproex 2020-0 Yes [id number] 125mg Take 1 Univers 125 mg EC 2-14 tablet by ity o f tablet 00:00: mouth [place] 00 every 12 Medical (twelve) Branch hours. divalproex 2020-0 Yes [id number] 125mg Take 1 Univers 125 mg EC 2-14 tablet by ity o f tablet 00:00: mouth [place] 00 every 12 Medical (twelve) Branch hours. divalproex 2020-0 2020- No [id number] 125mg Take 1 Univers 125 mg EC 2-14 - tablet by ity of tablet 00:00: 00:00 mouth [place] 00 :00 every 12 Medical (twelve) Branch hours. NaCl 0.9% 2018-02 Yes Infuse Univer s (NS) SolP 2-09 once now. ity o f 250 mL with 15:26: [place] inFLIXimab 39 Medical 100 mg SolR Branch NaCl 0.9% 2018-02 Yes Infuse Univer s (NS) SolP 2-09 once now. ity o f 250 mL with 15:26: [place] inFLIXimab 39 Medical 100 mg SolR Branch NaCl 0.9% 2018-02 Yes Infuse Univer s (NS) SolP 2-09 once now. ity o f 250 mL with 15:26: [place] inFLIXimab 39 Medical 100 mg SolR Branch NaCl 0.9% 2018-02 Yes Infuse Univer s (NS) SolP 2-09 once now. ity o f 250 mL with 15:26: [place] inFLIXimab 39 Medical 100 mg SolR Branch NaCl 0.9% 2019-1 Yes Infuse Univer s (NS) SolP 2-09 once now. ity o f 250 mL with 15:26: [place] inFLIXimab 39 Medical 100 mg SolR Branch NaCl 0.9% 2019-1 Yes Infuse Univer s (NS) SolP 2-09 once now. ity o f 250 mL with 15:26: [place] inFLIXimab 39 Medical 100 mg SolR Branch NaCl 0.9% 2019-1 Yes Infuse Univer s (NS) SolP 2-09 once now. ity o f 250 mL with 15:26: [place] inFLIXimab 39 Medical 100 mg SolR Branch NaCl 0.9% 2019-1 Yes Infuse Univer s (NS) SolP 2-09 once now. ity o f 250 mL with 15:26: [place] inFLIXimab 39 Medical 100 mg SolR Branch NaCl 0.9% 2019-1 Yes Infuse Univer s (NS) SolP 2-09 once now. ity o f 250 mL with 15:26: [place] inFLIXimab 39 Medical 100 mg SolR Branch NaCl 0.9% 2019-1 Yes Infuse Univer s (NS) SolP 2-09 once now. ity o f 250 mL with 15:26: [place] inFLIXimab 39 Medical 100 mg SolR Branch NaCl 0.9% 2019-1 Yes Infuse Univer s (NS) SolP 2-09 once now. ity o f 250 mL with 15:26: [place] inFLIXimab 39 Medical 100 mg SolR Branch NaCl 0.9% 2019-1 Yes Infuse Univer s (NS) SolP 2-09 once now. ity o f 250 mL with 15:26: [place] inFLIXimab 39 Medical 100 mg SolR Branch NaCl 0.9% 2019-1 Yes Infuse Univer s (NS) SolP 2-09 once now. ity o f 250 mL with 15:26: [place] inFLIXimab 39 Medical 100 mg SolR Branch NaCl 0.9% 2019-1 Yes Infuse Univer s (NS) SolP 2-09 once now. ity o f 250 mL with 15:26: [place] inFLIXimab 39 Medical 100 mg SolR Branch NaCl 0.9% 2019-1 Yes Infuse Univer s (NS) SolP 2-09 once now. ity o f 250 mL with 15:26: [place] inFLIXimab 39 Medical 100 mg SolR Branch NaCl 0.9% 2019-1 Yes Infuse Univer s (NS) SolP 2-09 once now. ity o f 250 mL with 15:26: [place] inFLIXimab 39 Medical 100 mg SolR Branch NaCl 0.9% 2019-1 Yes Infuse Univer s (NS) SolP 2-09 once now. ity o f 250 mL with 15:26: [place] inFLIXimab 39 Medical 100 mg SolR Branch NaCl 0.9% 2019-1 Yes Infuse Univer s (NS) SolP 2-09 once now. ity o f 250 mL with 15:26: [place] inFLIXimab 39 Medical 100 mg SolR Branch NaCl 0.9% 2019-1 Yes Infuse Univer s (NS) SolP 2-09 once now. ity o f 250 mL with 15:26: [place] inFLIXimab 39 Medical 100 mg SolR Branch NaCl 0.9% 2019-1 Yes Infuse Univer s (NS) SolP 2-09 once now. ity o f 250 mL with 15:26: [place] inFLIXimab 39 Medical 100 mg SolR Branch NaCl 0.9% 2019-1 Yes Infuse Univer s (NS) SolP 2-09 once now. ity o f 250 mL with 15:26: [place] inFLIXimab 39 Medical 100 mg SolR Branch NaCl 0.9% 2019-1 Yes Infuse Univer s (NS) SolP 2-09 once now. ity o f 250 mL with 15:26: [place] inFLIXimab 39 Medical 100 mg SolR Branch NaCl 0.9% 2019-1 Yes Infuse Univer s (NS) SolP 2-09 once now. ity o f 250 mL with 15:26: [place] inFLIXimab 39 Medical 100 mg SolR Branch NaCl 0.9% 2019-1 Yes Infuse Univer s (NS) SolP 2-09 once now. ity o f 250 mL with 15:26: [place] inFLIXimab 39 Medical 100 mg SolR Branch NaCl 0.9% 2019-1 Yes Infuse Univer s (NS) SolP 2-09 once now. ity o f 250 mL with 15:26: [place] inFLIXimab 39 [facility] 100 mg SolR Branch NaCl 0.9% 2019-1 Yes Infuse [facility] (NS) SolP 2-09 once now. ity o f 250 mL with 15:26: [place] inFLIXimab 39 [facility] 100 mg SolR [facility] NaCl 0.9% 2019- Yes [facility] (NS) SolP 2-09 once now. ity o f 250 mL with 15:26: [place] inFLIXimab 39 [facility] 100 mg SolR [facility] NaCl 0.9% 2019 Yes [facility] (NS) SolP 2-09 once now. ity o f 250 mL with 15:26: [place] inFLIXimab 39 [facility] 100 mg SolR Branch NaCl 0.9% 2019- Yes [facility] (NS) SolP 2-09 once now. ity o f 250 mL with 15:26: [place] inFLIXimab 39 [facility] 100 mg SolR Branch NaCl 0.9% 2019- Yes [facility] (NS) SolP 2-09 once now. ity o f 250 mL with 15:26: [place] inFLIXimab 39 [facility] 100 mg SolR Branch NaCl 0.9% 2019 Yes Infuse [facility] (NS) SolP 2-09 once now. ity o f 250 mL with 15:26: [place] inFLIXimab 39 [facility] 100 mg SolR Branch NaCl 0.9% 2019 Yes [facility]use [facility] (NS) SolP 2-09 once now. ity o f 250 mL with 15:26: [place] inFLIXimab 39 [facility] 100 mg SolR Branch NaCl 0.9% 2019- Yes [facility]use [facility] (NS) SolP 2-09 once now. ity o f 250 mL with 15:26: [place] inFLIXimab 39 [facility] 100 mg SolR Branch dicyclomine 2019 Yes 10mg Take 10 mg [facility] 10 mg 2-09 by mouth. ity of capsule 15:24: [address] dicyclomine 2019- Yes 10mg Take 10 mg [facility] 10 mg 2-09 by mouth. ity of capsule 15:24: [address] dicyclomine 2019- Yes 10mg Take 10 mg [facility] 10 mg 2-09 by mouth. ity of capsule 15:24: [address] dicyclomine 2019- Yes 10mg Take 10 mg [facility] 10 mg 2-09 by mouth. ity of capsule 15:24: [address] dicyclomine 2019- Yes 10mg Take 10 mg [facility] 10 mg 2-09 by mouth. ity of capsule 15:24: [address] dicyclomine 2018-02 Yes 10mg Take 10 mg [facility] 10 mg 2-09 by mouth. ity of capsule 15:24: [address] dicyclomine 2018-02 Yes 10mg Take 10 mg [facility] 10 mg 2-09 by mouth. ity of capsule 15:24: [address] dicyclomine 2018-02 Yes 10mg Take 10 mg [facility] 10 mg 2-09 by mouth. ity of capsule 15:24: [address] dicyclomine 2018-02 Yes 10mg Take 10 mg [facility] 10 mg 2-09 by mouth. ity of capsule 15:24: [address] dicyclomine 2018-02 Yes 10mg Take 10 mg [facility] 10 mg 2-09 by mouth. ity of capsule 15:24: [address] dicyclomine 2018-02 Yes 10mg Take 10 mg [facility] 10 mg 2-09 by mouth. ity of capsule 15:24: [address] dicyclomine 2018-02 Yes 10mg Take 10 mg [facility] 10 mg 2-09 by mouth. ity of capsule 15:24: [address] dicyclomine 2018-02 Yes 10mg Take 10 mg [facility] 10 mg 2-09 by mouth. ity of capsule 15:24: [address] dicyclomine 2018-02 Yes 10mg Take 10 mg [facility] 10 mg 2-09 by mouth. ity of capsule 15:24: [address] dicyclomine 2018-02 Yes 10mg Take 10 mg [facility] 10 mg 2-09 by mouth. ity of capsule 15:24: [address] dicyclomine 2018-02 Yes 10mg Take 10 mg [facility] 10 mg 2-09 by mouth. ity of capsule 15:24: [address] dicyclomine 2018-02 Yes 10mg Take 10 mg [facility] 10 mg 2-09 by mouth. ity of capsule 15:24: [address] dicyclomine 2018-02 Yes 10mg Take 10 mg [facility] 10 mg 2-09 by mouth. ity of capsule 15:24: [address] dicyclomine 2018-02 Yes 10mg Take 10 mg [facility] 10 mg 2-09 by mouth. ity of capsule 15:24: [address] dicyclomine 2018-02 Yes 10mg Take 10 mg [facility] 10 mg 2-09 by mouth. ity of capsule 15:24: [address] dicyclomine 2018-02 Yes 10mg Take 10 mg [facility] 10 mg 2-09 by mouth. ity of capsule 15:24: [address] dicyclomine 2018-02 Yes 10mg Take 10 mg [facility] 10 mg 2-09 by mouth. ity of capsule 15:24: [address] dicyclomine 2018-02 Yes 10mg Take 10 mg [facility] 10 mg 2-09 by mouth. ity of capsule 15:24: [address] dicyclomine 2018-02 Yes 10mg Take 10 mg [facility] 10 mg 2-09 by mouth. ity of capsule 15:24: [address] dicyclomine 2018-02 Yes 10mg Take 10 mg [facility] 10 mg 2-09 by mouth. ity of capsule 15:24: [address] dicyclomine 2018-02 Yes 10mg Take 10 mg [facility] 10 mg 2-09 by mouth. ity of capsule 15:24: [address] dicyclomine 2018-02 Yes 10mg Take 10 mg [facility] 10 mg 2-09 by mouth. ity of capsule 15:24: [address] dicyclomine 2018-02 Yes 10mg Take 10 mg [facility] 10 mg 2-09 by mouth. ity of capsule 15:24: [address] dicyclomine 2018-02 Yes 10mg Take 10 mg [facility] 10 mg 2-09 by mouth. ity of capsule 15:24: [address] dicyclomine 2018-02 Yes 10mg Take 10 mg [facility] 10 mg 2-09 by mouth. ity of capsule 15:24: [address] dicyclomine 2018-02 Yes 10mg Take 10 mg [facility] 10 mg 2-09 by mouth. ity of capsule 15:24: [address] dicyclomine 2018-02 Yes 10mg Take 10 mg [facility] 10 mg 2-09 by mouth. ity of capsule 15:24: [address] ONDANSETRON 2018-02 Yes Take by Un matt HCL (ZOFRAN 2-09 mouth. ity of ORAL) 15:22: [address] ONDANSETRON 2018-02 Yes Take by Un matt HCL (ZOFRAN 2-09 mouth. ity of ORAL) 15:22: [address] ONDANSETRON 2018-02 Yes Take by Un matt HCL (ZOFRAN 2-09 mouth. ity of ORAL) 15:22: [place] [id number] [facility] ONDANSETRON 2018- Yes Take by Un matt HCL (ZOFRAN 2-09 mouth. ity of ORAL) 15:22: [place] [id number] [facility] ONDANSETRON 2018- Yes Take by Un matt HCL (ZOFRAN 2-09 mouth. ity of ORAL) 15:22: [place] [id number] [facility] ONDANSETRON 2018- Yes Take by Un matt HCL (ZOFRAN 2-09 mouth. ity of ORAL) 15:22: [place] [id number] [facility] ONDANSETRON 2018- Yes Take by Un matt HCL (ZOFRAN 2-09 mouth. ity of ORAL) 15:22: [place] [id number] [facility] ONDANSETRON 2018- Yes Take by Un matt HCL (ZOFRAN 2-09 mouth. ity of ORAL) 15:22: [address] Branch ONDANSETRON 2018- Yes Take by Un matt HCL (ZOFRAN 2-09 mouth. ity of ORAL) 15:22: [address] Branch ONDANSETRON 2018- Yes Take by Un matt HCL (ZOFRAN 2-09 mouth. ity of ORAL) 15:22: [place] [id number] [facility] ONDANSETRON 2018- Yes Take by Un matt HCL (ZOFRAN 2-09 mouth. ity of ORAL) 15:22: [address] ONDANSETRON 2018- Yes Take by Un matt HCL (ZOFRAN 2-09 mouth. ity of ORAL) 15:22: [place] [id number] [facility] ONDANSETRON 2018- Yes Take by Un matt HCL (ZOFRAN 2-09 mouth. ity of ORAL) 15:22: [place] [id number] [facility] ONDANSETRON 2018- Yes Take by Un matt HCL (ZOFRAN 2-09 mouth. ity of ORAL) 15:22: [place] [id number] [facility] ONDANSETRON 2018- Yes Take by Un matt HCL (ZOFRAN 2-09 mouth. ity of ORAL) 15:22: [place] [id number] [facility] ONDANSETRON 2018- Yes Take by Un matt HCL (ZOFRAN 2-09 mouth. ity of ORAL) 15:22: [place] [id number] [facility] ONDANSETRON 2018- Yes Take by Un matt HCL (ZOFRAN 2-09 mouth. ity of ORAL) 15:22: [place] [id number] [facility] ONDANSETRON 2018- Yes Take by Un matt HCL (ZOFRAN 2-09 mouth. ity of ORAL) 15:22: [place] [id number] [facility] ONDANSETRON 2018- Yes Take by Un matt HCL (ZOFRAN 2-09 mouth. ity of ORAL) 15:22: [place] [id number] [facility] ONDANSETRON 2018- Yes Take by Un matt HCL (ZOFRAN 2-09 mouth. ity of ORAL) 15:22: [place] [id number] [facility] ONDANSETRON 2018- Yes Take by Un matt HCL (ZOFRAN 2-09 mouth. ity of ORAL) 15:22: [place] [id number] [facility] ONDANSETRON 2018- Yes Take by Un matt HCL (ZOFRAN 2-09 mouth. ity of ORAL) 15:22: [address] ONDANSETRON 2018-02 Yes Take by Un matt HCL (ZOFRAN 2-09 mouth. ity of ORAL) 15:22: [address] Branch ONDANSETRON 2018- Yes Take by Un matt HCL (ZOFRAN 2-09 mouth. ity of ORAL) 15:22: [place] [id number] [facility] ONDANSETRON 2018- Yes Take by Un matt HCL (ZOFRAN 2-09 mouth. ity of ORAL) 15:22: [address] ONDANSETRON 2018-02 Yes Take by Un matt HCL (ZOFRAN 2-09 mouth. ity of ORAL) 15:22: [address] Branch ONDANSETRON 2018- Yes Take by Un matt HCL (ZOFRAN 2-09 mouth. ity of ORAL) 15:22: [place] [id number] [facility] [place] ONDANSETRON 2018- Yes Take by Un matt HCL (ZOFRAN 2-09 mouth. ity of ORAL) 15:22: [place] [id number] [facility] Branch ONDANSETRON 2018- Yes Take by Un matt HCL (ZOFRAN 2-09 mouth. ity of ORAL) 15:22: [address] Branch ONDANSETRON 2018- Yes Take by Un matt HCL (ZOFRAN 2-09 mouth. ity of ORAL) 15:22: [place] 05 [facility] ONDANSETRON 2018-02 Yes Take by Un matt HCL (ZOFRAN 2-09 mouth. ity of ORAL) 15:22: 05 [facility] ONDANSETRON 2018-02 Yes Take by Un matt HCL (ZOFRAN 2-09 mouth. ity of ORAL) 15:22: [place] 05 [facility] azaTHIOprin 2018-02 Yes 150mg Take 150 U nivers e 50 mg 2-02 mg by ity of tablet 00:00: mouth [place] 00 daily. Medical Branch azaTHIOprin 2018-02 Yes 150mg Take 150 U nivers e 50 mg 2-02 mg by ity of tablet 00:00: mouth [place] 00 daily. Medical Branch azaTHIOprin 2018-02 Yes 150mg Take 150 U nivers e 50 mg 2-02 mg by ity of tablet 00:00: mouth [place] 00 daily. Medical Branch azaTHIOprin 2018-02 Yes 150mg Take 150 U nivers e 50 mg 2-02 mg by ity of tablet 00:00: mouth [place] 00 daily. Medical Branch azaTHIOprin 2018-02 Yes 150mg Take 150 U nivers e 50 mg 2-02 mg by ity of tablet 00:00: mouth [place] 00 daily. Medical Branch azaTHIOprin 2018-02 Yes 150mg Take 150 U nivers e 50 mg 2-02 mg by ity of tablet 00:00: mouth [place] 00 daily. Medical Branch azaTHIOprin 2018-02 Yes 150mg Take 150 U nivers e 50 mg 2-02 mg by ity of tablet 00:00: mouth [place] 00 daily. [facility] Branch azaTHIOprin 2018-02 Yes 150mg Take 150 U nivers e 50 mg 2-02 mg by ity of tablet 00:00: mouth [place] 00 daily. [facility] azaTHIOprin 2018-02 Yes 150mg Take 150 U nivers e 50 mg 2-02 mg by ity of tablet 00:00: mouth [place] 00 daily. [facility] azaTHIOprin 2018-02 Yes 150mg Take 150 U nivers e 50 mg 2-02 mg by ity of tablet 00:00: mouth [place] 00 daily. [facility] azaTHIOprin 2018-02 Yes 150mg Take 150 U nivers e 50 mg 2-02 mg by ity of tablet 00:00: mouth [place] 00 daily. [facility] azaTHIOprin 2018-02 Yes 150mg Take 150 U nivers e 50 mg 2-02 mg by ity of tablet 00:00: mouth [place] 00 daily. [facility] Branch azaTHIOprin 2018-02 Yes 150mg Take 150 U nivers e 50 mg 2-02 mg by ity of tablet 00:00: mouth [place] 00 daily. [facility] Branch azaTHIOprin 2018-02 Yes 150mg Take 150 U nivers e 50 mg 2-02 mg by ity of tablet 00:00: mouth [place] 00 daily. [facility] azaTHIOprin 2018-02 Yes 150mg Take 150 U nivers e 50 mg 2-02 mg by ity of tablet 00:00: mouth [place] 00 daily. [facility] azaTHIOprin 2018-02 Yes 150mg Take 150 U nivers e 50 mg 2-02 mg by ity of tablet 00:00: mouth [place] 00 daily. [facility] azaTHIOprin 2018-02 Yes 150mg Take 150 U nivers e 50 mg 2-02 mg by ity of tablet 00:00: mouth [place] 00 daily. [facility] azaTHIOprin 2018-02 Yes 150mg Take 150 U nivers e 50 mg 2-02 mg by ity of tablet 00:00: mouth [place] 00 daily. [facility] azaTHIOprin 2018-02 Yes 150mg Take 150 U nivers e 50 mg 2-02 mg by ity of tablet 00:00: mouth [place] 00 daily. [facility] azaTHIOprin 2018-02 Yes 150mg Take 150 U nivers e 50 mg 2-02 mg by ity of tablet 00:00: mouth [place] 00 daily. [facility] azaTHIOprin 2018-02 Yes 150mg Take 150 U nivers e 50 mg 2-02 mg by ity of tablet 00:00: mouth [place] 00 daily. [facility] azaTHIOprin 2018-02 Yes 150mg Take 150 U nivers e 50 mg 2-02 mg by ity of tablet 00:00: mouth [place] 00 daily. [facility] azaTHIOprin 2018-02 Yes 150mg Take 150 U nivers e 50 mg 2-02 mg by ity of tablet 00:00: mouth [place] 00 daily. [facility] azaTHIOprin 2018-02 Yes 150mg Take 150 U nivers e 50 mg 2-02 mg by ity of tablet 00:00: mouth [place] 00 daily. [facility] azaTHIOprin 2018-02 Yes 150mg Take 150 U nivers e 50 mg 2-02 mg by ity of tablet 00:00: mouth [place] 00 daily. Medical Branch azaTHIOprin 2018-02 Yes Univer s e 50 mg 2-02 ity of tablet 00:00: [place] 00 [facility] azaTHIOprin 2018-02 Yes Univer s e 50 mg 2-02 ity of tablet 00:00: [place] [facility] azaTHIOprin 2019-1 Yes Univer s e 50 mg 2-02 ity of tablet 00:00: [place] [id number] [facility] Branch azaTHIOprin 2019-1 Yes Univer s e 50 mg 2-02 ity of tablet 00:00: [place] [id number] [facility] Branch azaTHIOprin 2019-1 Yes Univer s e 50 mg 2-02 ity of tablet 00:00: [place] [id number] [facility] azaTHIOprin 2019-1 Yes Univer s e 50 mg 2-02 ity of tablet 00:00: [place] [id number] [facility] azaTHIOprin 2019-1 Yes Univer s e 50 mg 2-02 ity of tablet 00:00: [place] [id number] [facility] azaTHIOprin 2019-1 Yes Univer s e 50 mg 2-02 ity of tablet 00:00: [place] [id number] [facility] azaTHIOprin 2019-1 Yes Univer s e 50 mg 2-02 ity of tablet 00:00: [place] [id number] [facility] azaTHIOprin 2019-1 Yes Univer s e 50 mg 2-02 ity of tablet 00:00: [place] [id number] [facility] azaTHIOprin 2019-1 Yes Univer s e 50 mg 2-02 ity of tablet 00:00: [place] [id number] [facility] azaTHIOprin 2019-1 Yes Univer s e 50 mg 2-02 ity of tablet 00:00: [place] [id number] [facility] azaTHIOprin 2019-1 Yes Univer s e 50 mg 2-02 ity of tablet 00:00: [place] [id number] [facility] azaTHIOprin 2019-1 Yes Univer s e 50 mg 2-02 ity of tablet 00:00: [place] [id number] [facility] azaTHIOprin 2019-1 Yes Univer s e 50 mg 2-02 ity of tablet 00:00: [place] [id number] [facility] azaTHIOprin 2019-1 Yes Univer s e 50 mg 2-02 ity of tablet 00:00: [place] [address] [facility] azaTHIOprin 2019-1 Yes Univer s e 50 mg 2-02 ity of tablet 00:00: [place] [address] [facility] azaTHIOprin 2019-1 Yes Univer s e 50 mg 2-02 ity of tablet 00:00: [place] [address] [facility] azaTHIOprin 2019-1 Yes Univer s e 50 mg 2-02 ity of tablet 00:00: [place] [id number] [facility] azaTHIOprin 2019-1 Yes Univer s e 50 mg 2-02 ity of tablet 00:00: [place] 00 [facility] azaTHIOprin 2019- Yes Univer s e 50 mg 2-02 ity of tablet 00:00: [place] [facility] azaTHIOprin 2019-1 Yes Univer s e 50 mg 2-02 ity of tablet 00:00: [place] [facility] azaTHIOprin 2019- Yes Univer s e 50 mg 2-02 ity of tablet 00:00: [place] [id number] [facility] azaTHIOprin 2019-1 Yes Univer s e 50 mg 2-02 ity of tablet 00:00: [place] [address] [facility] azaTHIOprin 2019- Yes Univer s e 50 mg 2-02 ity of tablet 00:00: [place] [address] [facility] azaTHIOprin 2019- Yes Univer s e 50 mg 2-02 ity of tablet 00:00: [place] [address] [facility] azaTHIOprin 2019- Yes Univer s e 50 mg 2-02 ity of tablet 00:00: [place] [address] [facility] azaTHIOprin 2019-1 Yes Univer s e 50 mg 2-02 ity of tablet 00:00: [place] [address] [facility] azaTHIOprin 2019-1 Yes Univer s e 50 mg 2-02 ity of tablet 00:00: [place] [address] [facility] azaTHIOprin 2019- Yes Univer s e 50 mg 2-02 ity of tablet 00:00: [place] [address] [facility] azaTHIOprin 2019-1 Yes Univer s e 50 mg 2-02 ity of tablet 00:00: [place] [address] [facility] azaTHIOprin 2019- Yes Univer s e 50 mg 2-02 ity of tablet 00:00: [place] [address] [facility] azaTHIOprin 2019-1 Yes Univer s e 50 mg 2-02 ity of tablet 00:00: [place] [address] [facility] azaTHIOprin 2019-1 1- No 150mg Take 150 Univers e 50 mg 2-02 10-24 mg by ity of tablet 00:00: 00:00 mouth [place] 00 :00 daily. [facility] Branch ibuprofen 2019- Yes [id number] 600mg Take 1 [facility] 600 mg 1-13 tablet by ity of tablet 00:00: mouth [place] 00 every 6 Medical (six) Branch hours as needed for Pain (scale 4-6). ibuprofen 2019- Yes [id number] 600mg Take 1 [facility] 600 mg 1-13 tablet by ity of tablet 00:00: mouth [place] 00 every 6 Medical (six) Branch hours as needed for Pain (scale 4-6). ibuprofen 2018-02 Yes [id number] 600mg Take 1 [facility] 600 mg 1-13 tablet by ity of tablet 00:00: mouth [place] 00 every 6 Medical (six) Branch hours as needed for Pain (scale 4-6). ibuprofen 2018-02 Yes [id number] 600mg Take 1 [facility] 600 mg 1-13 tablet by ity of tablet 00:00: mouth [place] 00 every 6 Medical (six) Branch hours as needed for Pain (scale 4-6). ibuprofen 2018-02 Yes [id number] 600mg Take 1 [facility] 600 mg 1-13 tablet by ity of tablet 00:00: mouth [place] 00 every 6 Medical (six) Branch hours as needed for Pain (scale 4-6). ibuprofen 2018-02 Yes [id number] 600mg Take 1 [facility] 600 mg 1-13 tablet by ity of tablet 00:00: mouth [place] 00 every 6 Medical (six) Branch hours as needed for Pain (scale 4-6). ibuprofen 2018-02 Yes [id number] 600mg Take 1 [facility] 600 mg 1-13 tablet by ity of tablet 00:00: mouth [place] 00 every 6 Medical (six) Branch hours as needed for Pain (scale 4-6). ibuprofen 2018-02 Yes [id number] 600mg Take 1 [facility] 600 mg 1-13 tablet by ity of tablet 00:00: mouth [place] 00 every 6 Medical (six) Branch hours as needed for Pain (scale 4-6). ibuprofen 2018-02 Yes [id number] 600mg Take 1 [facility] 600 mg 1-13 tablet by ity of tablet 00:00: mouth [place] 00 every 6 Medical (six) Branch hours as needed for Pain (scale 4-6). ibuprofen 2018-02 Yes [id number] 600mg Take 1 [facility] 600 mg 1-13 tablet by ity of tablet 00:00: mouth [place] 00 every 6 Medical (six) Branch hours as needed for Pain (scale 4-6). ibuprofen 2018- Yes [id number] 600mg Take 1 [facility] 600 mg 1-13 tablet by ity of tablet 00:00: mouth [place] 00 every 6 Medical (six) Branch hours as needed for Pain (scale 4-6). ibuprofen 2018- Yes [id number] 600mg Take 1 [facility] 600 mg 1-13 tablet by ity of tablet 00:00: mouth [place] 00 every 6 Medical (six) Branch hours as needed for Pain (scale 4-6). ibuprofen 2018-02 Yes [id number] 600mg Take 1 [facility] 600 mg 1-13 tablet by ity of tablet 00:00: mouth [place] 00 every 6 Medical (six) Branch hours as needed for Pain (scale 4-6). ibuprofen 2018-02 Yes [id number] 600mg Take 1 [facility] 600 mg 1-13 tablet by ity of tablet 00:00: mouth [place] 00 every 6 Medical (six) Branch hours as needed for Pain (scale 4-6). ibuprofen 2018-02 Yes [id number] 600mg Take 1 [facility] 600 mg 1-13 tablet by ity of tablet 00:00: mouth [place] 00 every 6 Medical (six) Branch hours as needed for Pain (scale 4-6). ibuprofen 2018-02 Yes [id number] 600mg Take 1 [facility] 600 mg 1-13 tablet by ity of tablet 00:00: mouth [place] 00 every 6 Medical (six) Branch hours as needed for Pain (scale 4-6). ibuprofen 2018-02 Yes [id number] 600mg Take 1 [facility] 600 mg 1-13 tablet by ity of tablet 00:00: mouth [place] 00 every 6 Medical (six) Branch hours as needed for Pain (scale 4-6). ibuprofen 2018-02 Yes [id number] 600mg Take 1 [facility] 600 mg 1-13 tablet by ity of tablet 00:00: mouth [place] 00 every 6 Medical (six) Branch hours as needed for Pain (scale 4-6). ibuprofen 2018-02 Yes [id number] 600mg Take 1 [facility] 600 mg 1-13 tablet by ity of tablet 00:00: mouth [place] 00 every 6 Medical (six) Branch hours as needed for Pain (scale 4-6). ibuprofen 2018-02 Yes [id number] 600mg Take 1 [facility] 600 mg 1-13 tablet by ity of tablet 00:00: mouth [place] 00 every 6 Medical (six) Branch hours as needed for Pain (scale 4-6). ibuprofen 2018- Yes [id number] 600mg Take 1 [facility] 600 mg 1-13 tablet by ity of tablet 00:00: mouth [place] 00 every 6 Medical (six) Branch hours as needed for Pain (scale 4-6). ibuprofen 2018- Yes [id number] 600mg Take 1 [facility] 600 mg 1-13 tablet by ity of tablet 00:00: mouth [place] 00 every 6 Medical (six) Branch hours as needed for Pain (scale 4-6). ibuprofen 2018-02 Yes [id number] 600mg Take 1 [facility] 600 mg 1-13 tablet by ity of tablet 00:00: mouth [place] 00 every 6 Medical (six) Branch hours as needed for Pain (scale 4-6). ibuprofen 2018-02 Yes [id number] 600mg Take 1 [facility] 600 mg 1-13 tablet by ity of tablet 00:00: mouth [place] 00 every 6 Medical (six) Branch hours as needed for Pain (scale 4-6). ibuprofen 2018-02 Yes [id number] 600mg Take 1 [facility] 600 mg 1-13 tablet by ity of tablet 00:00: mouth [place] 00 every 6 Medical (six) Branch hours as needed for Pain (scale 4-6). ibuprofen 2018-02 Yes [id number] 600mg Take 1 [facility] 600 mg 1-13 tablet by ity of tablet 00:00: mouth [place] 00 every 6 Medical (six) Branch hours as needed for Pain (scale 4-6). ibuprofen 2018-02 Yes [id number] 600mg Take 1 [facility] 600 mg 1-13 tablet by ity of tablet 00:00: mouth [place] 00 every 6 Medical (six) Branch hours as needed for Pain (scale 4-6). ibuprofen 2018-02 Yes [id number] 600mg Take 1 [facility] 600 mg 1-13 tablet by ity of tablet 00:00: mouth [place] 00 every 6 Medical (six) Branch hours as needed for Pain (scale 4-6). ibuprofen 2018- Yes [id number] 600mg Take 1 [facility] 600 mg 1-13 tablet by ity of tablet 00:00: mouth [place] 00 every 6 Medical (six) Branch hours as needed for Pain (scale 4-6). ibuprofen 2018- Yes [id number] 600mg Take 1 [facility] 600 mg 1-13 tablet by ity of tablet 00:00: mouth [place] 00 every 6 Medical (six) Branch hours as needed for Pain (scale 4-6). ibuprofen 2018- Yes [id number] 600mg Take 1 [facility] 600 mg 1-13 tablet by ity of tablet 00:00: mouth [place] 00 every 6 Medical (six) Branch hours as needed for Pain (scale 4-6). ibuprofen 2018- Yes [id number] 600mg Take 1 [facility] 600 mg 1-13 tablet by ity of tablet 00:00: mouth [place] 00 every 6 Medical (six) Branch hours as needed for Pain (scale 4-6). ibuprofen 2018-02 Yes [id number] 600mg Take 1 [facility] 600 mg 1-13 tablet by ity of tablet 00:00: mouth [place] 00 every 6 Medical (six) Branch hours as needed for Pain (scale 4-6). ibuprofen 2018-02 Yes [id number] 600mg Take 1 [facility] 600 mg 1-13 tablet by ity of tablet 00:00: mouth [place] 00 every 6 Medical (six) Branch hours as needed for Pain (scale 4-6). ibuprofen 2018-02 Yes [id number] 600mg Take 1 [facility] 600 mg 1-13 tablet by ity of tablet 00:00: mouth [place] 00 every 6 Medical (six) Branch hours as needed for Pain (scale 4-6). ibuprofen 2018-02 Yes [id number] 600mg Take 1 [facility] 600 mg 1-13 tablet by ity of tablet 00:00: mouth [place] 00 every 6 Medical (six) Branch hours as needed for Pain (scale 4-6). ibuprofen 2018-02 Yes [id number] 600mg Take 1 [facility] 600 mg 1-13 tablet by ity of tablet 00:00: mouth [place] 00 every 6 Medical (six) Branch hours as needed for Pain (scale 4-6). ibuprofen 2018-02 Yes [id number] 600mg Take 1 [facility] 600 mg 1-13 tablet by ity of tablet 00:00: mouth [place] 00 every 6 Medical (six) Branch hours as needed for Pain (scale 4-6). ibuprofen 2018-02 Yes [id number] 600mg Take 1 [facility] 600 mg 1-13 tablet by ity of tablet 00:00: mouth [place] 00 every 6 Medical (six) Branch hours as needed for Pain (scale 4-6). ibuprofen 2018-02 Yes [id number] 600mg Take 1 [facility] 600 mg 1-13 tablet by ity of tablet 00:00: mouth [place] 00 every 6 Medical (six) Branch hours as needed for Pain (scale 4-6). ibuprofen 2018-02 Yes [id number] 600mg Take 1 [facility] 600 mg 1-13 tablet by ity of tablet 00:00: mouth [place] 00 every 6 Medical (six) Branch hours as needed for Pain (scale 4-6). ibuprofen 2018-02 Yes [id number] 600mg Take 1 [facility] 600 mg 1-13 tablet by ity of tablet 00:00: mouth [place] 00 every 6 Medical (six) Branch hours as needed for Pain (scale 4-6). ibuprofen 2018- Yes [id number] 600mg Take 1 [facility] 600 mg 1-13 tablet by ity of tablet 00:00: mouth [place] 00 every 6 Medical (six) Branch hours as needed for Pain (scale 4-6). ibuprofen 2018-02 Yes [id number] 600mg Take 1 [facility] 600 mg 1-13 tablet by ity of tablet 00:00: mouth [place] 00 every 6 Medical (six) Branch hours as needed for Pain (scale 4-6). ibuprofen 2018-02 Yes [id number] 600mg Take 1 [facility] 600 mg 1-13 tablet by ity of tablet 00:00: mouth [place] 00 every 6 Medical (six) Branch hours as needed for Pain (scale 4-6). ibuprofen 2018-02 Yes [id number] 600mg Take 1 [facility] 600 mg 1-13 tablet by ity of tablet 00:00: mouth [place] 00 every 6 Medical (six) Branch hours as needed for Pain (scale 4-6). ibuprofen 2018-02 Yes [id number] 600mg Take 1 [facility] 600 mg 1-13 tablet by ity of tablet 00:00: mouth [place] 00 every 6 Medical (six) Branch hours as needed for Pain (scale 4-6). ibuprofen 2018-02 Yes [id number] 600mg Take 1 [facility] 600 mg 1-13 tablet by ity of tablet 00:00: mouth [place] 00 every 6 Medical (six) Branch hours as needed for Pain (scale 4-6). ibuprofen 2018-02 Yes [id number] 600mg Take 1 [facility] 600 mg 1-13 tablet by ity of tablet 00:00: mouth [place] 00 every 6 Medical (six) Branch hours as needed for Pain (scale 4-6). ibuprofen 2018- Yes [id number] 600mg Take 1 [facility] 600 mg 1-13 tablet by ity of tablet 00:00: mouth [place] 00 every 6 Medical (six) Branch hours as needed for Pain (scale 4-6). ibuprofen 2018- Yes [id number] 600mg Take 1 [facility] 600 mg 1-13 tablet by ity of tablet 00:00: mouth [place] 00 every 6 Medical (six) Branch hours as needed for Pain (scale 4-6). ibuprofen 2018-02 Yes [id number] 600mg Take 1 [facility] 600 mg 1-13 tablet by ity of tablet 00:00: mouth [place] 00 every 6 Medical (six) Branch hours as needed for Pain (scale 4-6). ibuprofen 2018-02 Yes [id number] 600mg Take 1 [facility] 600 mg 1-13 tablet by ity of tablet 00:00: mouth [place] 00 every 6 Medical (six) Branch hours as needed for Pain (scale 4-6). ibuprofen 2018-02 Yes [id number] 600mg Take 1 [facility] 600 mg 1-13 tablet by ity of tablet 00:00: mouth [place] 00 every 6 Medical (six) Branch hours as needed for Pain (scale 4-6). ibuprofen 2018-02 Yes [id number] 600mg Take 1 [facility] 600 mg 1-13 tablet by ity of tablet 00:00: mouth [place] 00 every 6 Medical (six) Branch hours as needed for Pain (scale 4-6). ibuprofen 2018-02 Yes [id number] 600mg Take 1 [facility] 600 mg 1-13 tablet by ity of tablet 00:00: mouth [place] 00 every 6 Medical (six) Branch hours as needed for Pain (scale 4-6). ibuprofen 2018-02 Yes [id number] 600mg Take 1 [facility] 600 mg 1-13 tablet by ity of tablet 00:00: mouth [place] 00 every 6 Medical (six) Branch hours as needed for Pain (scale 4-6). ibuprofen 2018-02 Yes [id number] 600mg Take 1 [facility] 600 mg 1-13 tablet by ity of tablet 00:00: mouth [place] 00 every 6 Medical (six) Branch hours as needed for Pain (scale 4-6). ibuprofen 2018-02- No [id number] 600mg Take 1 [facility] 600 mg 1-13 10-24 tablet by ity of tablet 00:00: 00:00 mouth [place] 00 :00 every 6 Medical (six) Branch hours as needed for Pain (scale 4-6). cyclobenzap 2018-02- No [id number] 10mg Take 1 [facility] rine 10 mg 1-13 02-14 tablet by ity of tablet 00:00: 00:00 mouth 3 [place] 00 :00 (three) Medical times Branch daily. cyclobenzap 2018-02- No [id number] 10mg Take 1 [facility] rine 10 mg 1-13 02-14 tablet by ity of tablet 00:00: 00:00 mouth 3 [place] 00 :00 (three) Medical times Branch daily. Bactrim DS Bactrim DS 2017- No [place] [address] [facility] Pyridium Pyridium 2017- No [place] [address] [facility] [place] [facility] hydrOXYzine 2020- No TAKE 1 Uni vers (ATARAX) 25 09-01 TABLET BY it y of mg tablet 00:00: 00:00 MOUTH [place] 00 :00 EVERY 8 Medical HOURS Branch NEEDED FOR ANXIETY hydrOXYzine 2020- No TAKE 1 Uni vers (ATARAX) 25 09-01 TABLET BY it y of mg tablet 00:00: 00:00 MOUTH [place] 00 :00 EVERY 8 Medical HOURS Branch NEEDED FOR ANXIETY sodium,pota Yes [id number] Please see [facility] 6-16 instructio ity of sulfates 00:00: [facility] (SUPREP 00 provided. Medical BOWEL PREP Branch KIT) 17.5-3.13-1 .6 gram SolR sodium,pota Yes [id number] Please see [facility] 6-16 instructio ity of sulfates 00:00: [facility] (SUPREP 00 provided. Medical BOWEL PREP Branch KIT) 17.5-3.13-1 .6 gram SolR sodium,pota Yes [id number] Please see [facility] 6-16 instructio ity of sulfates 00:00: ns [place] (SUPREP 00 provided. Medical BOWEL PREP Branch KIT) 17.5-3.13-1 .6 gram SolR sodium,pota Yes [id number] Please see [facility] 6-16 instructio ity of sulfates 00:00: ns [place] (SUPREP 00 provided. Medical BOWEL PREP Branch KIT) 17.5-3.13-1 .6 gram SolR sodium,pota Yes [id number] Please see [facility] 6-16 instructio ity of sulfates 00:00: [facility] (SUPREP 00 provided. Medical BOWEL PREP Branch KIT) 17.5-3.13-1 .6 gram SolR sodium,pota 2016-0 Yes [id number] Please see [facility] 6-16 instructio ity of sulfates 00:00: [facility] (SUPREP 00 provided. Medical BOWEL PREP Branch KIT) 17.5-3.13-1 .6 gram SolR sodium,pota 2016-0 Yes [id number] Please see [facility] 6-16 instructio ity of sulfates 00:00: [facility] (SUPREP 00 provided. Medical BOWEL PREP Branch KIT) 17.5-3.13-1 .6 gram SolR sodium,pota 2016-0 Yes [id number] Please see [facility] 6-16 instructio ity of sulfates 00:00: [facility] (SUPREP 00 provided. Medical BOWEL PREP Branch KIT) 17.5-3.13-1 .6 gram SolR sodium,pota 2016-0 Yes [id number] Please see [facility] 6-16 instructio ity of sulfates 00:00: [facility] (SUPREP 00 provided. Medical BOWEL PREP Branch KIT) 17.5-3.13-1 .6 gram SolR sodium,pota 2016-0 Yes [id number] Please see [facility] 6-16 instructio ity of sulfates 00:00: [facility] (SUPREP 00 provided. Medical BOWEL PREP Branch KIT) 17.5-3.13-1 .6 gram SolR sodium,pota 2016-0 Yes [id number] Please see [facility] 616 instructio ity of sulfates 00:00: [facility] (SUPREP 00 provided. Medical BOWEL PREP Branch KIT) 17.5-3.13-1 .6 gram SolR sodium,pota 2016-0 Yes [id number] Please see [facility] 6-16 instructio ity of sulfates 00:00: [facility] (SUPREP 00 provided. Medical BOWEL PREP Branch KIT) 17.5-3.13-1 .6 gram SolR sodium,pota 2016-0 Yes [id number] Please see [facility] 6-16 instructio ity of sulfates 00:00: [facility] (SUPREP 00 provided. Medical BOWEL PREP Branch KIT) 17.5-3.13-1 .6 gram SolR sodium,pota 2016-0 Yes [id number] Please see [facility] 6-16 instructio ity of sulfates 00:00: [place] (SUPREP 00 provided. Medical BOWEL PREP Branch KIT) 17.5-3.13-1 .6 gram SolR sodium,pota 2016-0 Yes [id number] Please see [facility] 6-16 instructio ity of sulfates 00:00: ns [place] (SUPREP 00 provided. Medical BOWEL PREP Branch KIT) 17.5-3.13-1 .6 gram SolR sodium,pota 2016-0 Yes [id number] Please see [facility] 6-16 instructio ity of sulfates 00:00: [facility] (SUPREP 00 provided. Medical BOWEL PREP Branch KIT) 17.5-3.13-1 .6 gram SolR sodium,pota 2016-0 Yes [id number] Please see [facility] 6-16 instructio ity of sulfates 00:00: [facility] (SUPREP 00 provided. Medical BOWEL PREP Branch KIT) 17.5-3.13-1 .6 gram SolR sodium,pota 2016-0 Yes [id number] Please see [facility] 6-16 instructio ity of sulfates 00:00: [facility] (SUPREP 00 provided. Medical BOWEL PREP Branch KIT) 17.5-3.13-1 .6 gram SolR sodium,pota 2016-0 Yes [id number] Please see [facility] 6-16 instructio ity of sulfates 00:00: [facility] (SUPREP 00 provided. Medical BOWEL PREP Branch KIT) 17.5-3.13-1 .6 gram SolR sodium,pota 2016-0 Yes [id number] Please see [facility] 6-16 instructio ity of sulfates 00:00: [facility] (SUPREP 00 provided. Medical BOWEL PREP Branch KIT) 17.5-3.13-1 .6 gram SolR sodium,pota 2016-0 Yes [id number] Please see [facility] 6-16 instructio ity of sulfates 00:00: [facility] (SUPREP 00 provided. Medical BOWEL PREP Branch KIT) 17.5-3.13-1 .6 gram SolR sodium,pota 2016-0 Yes [id number] Please see [facility] 6-16 instructio ity of sulfates 00:00: [place] (SUPREP 00 provided. Medical BOWEL PREP Branch KIT) 17.5-3.13-1 .6 gram SolR sodium,pota 2016-0 Yes [id number] Please see [facility] 6-16 instructio ity of sulfates 00:00: ns [place] (SUPREP 00 provided. Medical BOWEL PREP Branch KIT) 17.5-3.13-1 .6 gram SolR sodium,pota 2016-0 Yes [id number] Please see [facility] 6-16 instructio ity of sulfates 00:00: ns [place] (SUPREP 00 provided. Medical BOWEL PREP Branch KIT) 17.5-3.13-1 .6 gram SolR sodium,pota 2016-0 Yes [id number] Please see [facility] 6-16 instructio ity of sulfates 00:00: ns [place] (SUPREP 00 provided. Medical BOWEL PREP Branch KIT) 17.5-3.13-1 .6 gram SolR sodium,pota 2016-0 Yes [id number] Please see [facility] 6-16 instructio ity of sulfates 00:00: ns [place] (SUPREP 00 provided. Medical BOWEL PREP Branch KIT) 17.5-3.13-1 .6 gram SolR sodium,pota 2016-0 Yes [id number] Please see [facility] 6-16 instructio ity of sulfates 00:00: ns [place] (SUPREP 00 provided. Medical BOWEL PREP Branch KIT) 17.5-3.13-1 .6 gram SolR sodium,pota 2016-0 Yes [id number] Please see [facility] 6-16 instructio ity of sulfates 00:00: ns [place] (SUPREP 00 provided. Medical BOWEL PREP Branch KIT) 17.5-3.13-1 .6 gram SolR sodium,pota 2016-0 Yes [id number] Please see [facility] 6-16 instructio ity of sulfates 00:00: ns [place] (SUPREP 00 provided. Medical BOWEL PREP Branch KIT) 17.5-3.13-1 .6 gram SolR sodium,pota 2016-0 Yes [id number] Please see [facility] 6-16 instructio ity of sulfates 00:00: [facility] (SUPREP 00 provided. Medical BOWEL PREP Branch KIT) 17.5-3.13-1 .6 gram SolR sodium,pota Yes [id number] Please see [facility] 6-16 instructio ity of sulfates 00:00: [facility] (SUPREP 00 provided. Medical BOWEL PREP Branch KIT) 17.5-3.13-1 .6 gram SolR sodium,pota Yes [id number] Please see [facility] 6-16 instructio ity of sulfates 00:00: [facility] (SUPREP 00 provided. Medical BOWEL PREP Branch KIT) 17.5-3.13-1 .6 gram SolR sodium,pota Yes [id number] Please see [facility] 6-16 instructio ity of sulfates 00:00: [facility] (SUPREP 00 provided. Medical BOWEL PREP Branch KIT) 17.5-3.13-1 .6 gram SolR sodium,pota 2021- No [id number] Please see [facility] 6-16 04-18 instructio ity of sulfates 00:00: 00:00 [facility] (SUPREP 00 :00 provided. Medical BOWEL PREP Branch KIT) 17.5-3.13-1 .6 gram SolR buprenorphi 2020- No 15ug Apply 15 U nivers ne 5-27 02-14 mcg to ity of (BUTRANS) 00:00: 00:00 skin every [place] 15 mcg/hour 00 :00 24 Medical PTWK (twenty- Branch ur) hours. buprenorphi 2020- No 15ug Apply 15 U nivers ne 5-27 02-14 mcg to ity of (BUTRANS) 00:00: 00:00 skin every [place] 15 mcg/hour 00 :00 24 Medical PTWK (twenty- Branch ur) hours. ondansetron Yes Univer s (ZOFRAN) 4 5-18 ity of mg tablet 00:00: [place] 00 [facility] ondansetron Yes Univer s (ZOFRAN) 4 5-18 ity of mg tablet 00:00: [place] [facility] ondansetron Yes Univer s (ZOFRAN) 4 5-18 ity of mg tablet 00:00: Medical Branch ondansetron 2016-0 Yes Univer s (ZOFRAN) 4 5-18 ity of mg tablet 00:00: Medical Branch ondansetron 2016-0 Yes Univer s (ZOFRAN) 4 5-18 ity of mg tablet 00:00: Medical Branch ondansetron 2016-0 Yes Univer s (ZOFRAN) 4 5-18 ity of mg tablet 00:00: Medical Branch ondansetron 2016-0 Yes Univer s (ZOFRAN) 4 5-18 ity of mg tablet 00:00: Medical Branch ondansetron 2016-0 Yes Univer s (ZOFRAN) 4 5-18 ity of mg tablet 00:00: Medical Branch ondansetron 2016-0 Yes Univer s (ZOFRAN) 4 5-18 ity of mg tablet 00:00: Medical Branch ondansetron 2016-0 Yes Univer s (ZOFRAN) 4 5-18 ity of mg tablet 00:00: Medical Branch ondansetron 2016-0 Yes Univer s (ZOFRAN) 4 5-18 ity of mg tablet 00:00: Medical Branch ondansetron 2016-0 Yes Univer s (ZOFRAN) 4 5-18 ity of mg tablet 00:00: Medical Branch ondansetron 2016-0 Yes Univer s (ZOFRAN) 4 5-18 ity of mg tablet 00:00: Medical Branch ondansetron 2016-0 Yes Univer s (ZOFRAN) 4 5-18 ity of mg tablet 00:00: Medical Branch ondansetron 2016-0 Yes Univer s (ZOFRAN) 4 5-18 ity of mg tablet 00:00: Medical Branch ondansetron 2016-0 Yes Univer s (ZOFRAN) 4 5-18 ity of mg tablet 00:00: Medical Branch ondansetron 2016-0 Yes Univer s (ZOFRAN) 4 5-18 ity of mg tablet 00:00: Medical Branch ondansetron 2016-0 Yes Univer s (ZOFRAN) 4 5-18 ity of mg tablet 00:00: 00 Medical Branch ondansetron 2016-0 Yes Univer s (ZOFRAN) 4 5-18 ity of mg tablet 00:00: Medical Branch ondansetron 2016-0 Yes Univer s (ZOFRAN) 4 5-18 ity of mg tablet 00:00: Medical Branch ondansetron 2016-0 Yes Univer s (ZOFRAN) 4 5-18 ity of mg tablet 00:00: Medical Branch ondansetron 2016-0 Yes Univer s (ZOFRAN) 4 5-18 ity of mg tablet 00:00: Medical Branch ondansetron 2016-0 Yes Univer s (ZOFRAN) 4 5-18 ity of mg tablet 00:00: Medical Branch ondansetron 2016-0 Yes Univer s (ZOFRAN) 4 5-18 ity of mg tablet 00:00: Medical Branch ondansetron 2016-0 Yes Univer s (ZOFRAN) 4 5-18 ity of mg tablet 00:00: Medical Branch ondansetron 2016-0 Yes Univer s (ZOFRAN) 4 5-18 ity of mg tablet 00:00: Medical Branch ondansetron 2016-0 Yes Univer s (ZOFRAN) 4 5-18 ity of mg tablet 00:00: Medical Branch ondansetron 2016-0 Yes Univer s (ZOFRAN) 4 5-18 ity of mg tablet 00:00: Medical Branch ondansetron 2016-0 Yes Univer s (ZOFRAN) 4 5-18 ity of mg tablet 00:00: Medical Branch ondansetron 2016-0 Yes Univer s (ZOFRAN) 4 5-18 ity of mg tablet 00:00: Medical Branch ondansetron 2016-0 Yes Univer s (ZOFRAN) 4 5-18 ity of mg tablet 00:00: Medical Branch ondansetron 2016-0 Yes Univer s (ZOFRAN) 4 5-18 ity of mg tablet 00:00: Medical Branch ondansetron 2016-0 2021- No Unive rs (ZOFRAN) 4 5-18 04-14 ity of mg tablet 00:00: 00:00 [place] 00 :00 Medical Branch LYRICA 75 2015- 2020- No Univers mg capsule 06-29 ity of 00:00: 00:00 [place] 00 :00 Medical Branch LYRICA 75 2015- 2020- No Univers mg capsule 06-29 ity of 00:00: 00:00 [place] 00 :00 Medical Branch mesalamine 2016-0 Yes 1000mg Take 2 Uni vers CR 5-17 capsules ity of (PENTASA) 00:00: by mouth 4 [place] 500 mg CR 00 (four) Medical capsule times Branch daily. mesalamine 2016-0 Yes 1000mg Take 2 Uni vers CR 5-17 capsules ity of (PENTASA) 00:00: by mouth 4 [place] 500 mg CR 00 (four) Medical capsule times Branch daily. mesalamine 2016-0 Yes 1000mg Take 2 Uni vers CR 5-17 capsules ity of (PENTASA) 00:00: by mouth 4 [place] 500 mg CR 00 (four) Medical capsule times Branch daily. mesalamine 2016-0 Yes 1000mg Take 2 Uni vers CR 5-17 capsules ity of (PENTASA) 00:00: by mouth 4 [place] 500 mg CR 00 (four) Medical capsule times Branch daily. mesalamine 2016-0 Yes 1000mg Take 2 Uni vers CR 5-17 capsules ity of (PENT[place]A) 00:00: by mouth 4 [place] 500 mg CR 00 (four) Medical capsule times Branch daily. mesalamine 2016-0 Yes 1000mg Take 2 Uni vers CR 5-17 capsules ity of (PENTASA) 00:00: by mouth 4 [place] 500 mg CR 00 (four) Medical capsule times Branch daily. mesalamine 2016-0 Yes 1000mg Take 2 Uni vers CR 5-17 capsules ity of (PENTASA) 00:00: by mouth 4 [place] 500 mg CR 00 (four) Medical capsule times Branch daily. mesalamine 2016-0 Yes 1000mg Take 2 Uni vers CR 5-17 capsules ity of (PENTASA) 00:00: by mouth 4 [place] 500 mg CR 00 (four) Medical capsule times Branch daily. mesalamine 2016-0 Yes 1000mg Take 2 Uni vers CR 5-17 capsules ity of (PENT[place]A) 00:00: by mouth 4 [place] 500 mg CR 00 (four) Medical capsule times Branch daily. mesalamine 2016-0 Yes 1000mg Take 2 Uni vers CR 5-17 capsules ity of (PENTASA) 00:00: by mouth 4 [place] 500 mg CR 00 (four) Medical capsule times Branch daily. mesalamine 2016-0 Yes 1000mg Take 2 Uni vers CR 5-17 capsules ity of (PENTASA) 00:00: by mouth 4 [place] 500 mg CR 00 (four) Medical capsule times Branch daily. mesalamine 2016-0 Yes 1000mg Take 2 Uni vers CR 5-17 capsules ity of (PENTASA) 00:00: by mouth 4 [place] 500 mg CR 00 (four) Medical capsule times Branch daily. mesalamine 2016-0 Yes 1000mg Take 2 Uni vers CR 5-17 capsules ity of (PENTASA) 00:00: by mouth 4 [place] 500 mg CR 00 (four) Medical capsule times Branch daily. mesalamine 2016-0 Yes 1000mg Take 2 Uni vers CR 5-17 capsules ity of (PENTASA) 00:00: by mouth 4 [place] 500 mg CR 00 (four) Medical capsule times Branch daily. mesalamine 2016-0 Yes 1000mg Take 2 Uni vers CR 5-17 capsules ity of (PENTASA) 00:00: by mouth 4 [place] 500 mg CR 00 (four) Medical capsule times Branch daily. mesalamine 2016-0 Yes 1000mg Take 2 Uni vers CR 5-17 capsules ity of (PENTASA) 00:00: by mouth 4 [place] 500 mg CR 00 (four) Medical capsule times Branch daily. mesalamine 2016-0 Yes 1000mg Take 2 Uni vers CR 5-17 capsules ity of (PENT[place]A) 00:00: by mouth 4 [place] 500 mg CR 00 (four) Medical capsule times Branch daily. mesalamine 2016-0 Yes 1000mg Take 2 Uni vers CR 5-17 capsules ity of (PENTASA) 00:00: by mouth 4 [place] 500 mg CR 00 (four) Medical capsule times Branch daily. mesalamine 2016-0 Yes 1000mg Take 2 Uni vers CR 5-17 capsules ity of (PENTASA) 00:00: by mouth 4 [place] 500 mg CR 00 (four) Medical capsule times Branch daily. mesalamine 2016-0 Yes 1000mg Take 2 Uni vers CR 5-17 capsules ity of (PENTASA) 00:00: by mouth 4 [place] 500 mg CR 00 (four) Medical capsule times Branch daily. mesalamine 2016-0 Yes 1000mg Take 2 Uni vers CR 5-17 capsules ity of (PENTASA) 00:00: by mouth 4 [place] 500 mg CR 00 (four) Medical capsule times Branch daily. mesalamine 2016-0 Yes 1000mg Take 2 Uni vers CR 5-17 capsules ity of (PENTASA) 00:00: by mouth 4 [place] 500 mg CR 00 (four) Medical capsule times Branch daily. mesalamine 2016-0 Yes 1000mg Take 2 Uni vers CR 5-17 capsules ity of (PENTASA) 00:00: by mouth 4 [place] 500 mg CR 00 (four) Medical capsule times Branch daily. mesalamine 2016-0 Yes 1000mg Take 2 Uni vers CR 5-17 capsules ity of (PENTASA) 00:00: by mouth 4 [place] 500 mg CR 00 (four) Medical capsule times Branch daily. mesalamine 2016-0 Yes 1000mg Take 2 Uni vers CR 5-17 capsules ity of (PENTASA) 00:00: by mouth 4 [place] 500 mg CR 00 (four) Medical capsule times Branch daily. mesalamine 2016-0 Yes 1000mg Take 2 Uni vers CR 5-17 capsules ity of (PENTASA) 00:00: by mouth 4 [place] 500 mg CR 00 (four) Medical capsule times Branch daily. mesalamine 2016-0 Yes 1000mg Take 2 Uni vers CR 5-17 capsules ity of (PENTASA) 00:00: by mouth 4 [place] 500 mg CR 00 (four) Medical capsule times Branch daily. mesalamine 2016-0 Yes 1000mg Take 2 Uni vers CR 5-17 capsules ity of (PENTASA) 00:00: by mouth 4 [place] 500 mg CR 00 (four) Medical capsule times Branch daily. mesalamine 2016-0 Yes 1000mg Take 2 Uni vers CR 5-17 capsules ity of (PENTASA) 00:00: by mouth 4 [place] 500 mg CR 00 (four) Medical capsule times Branch daily. mesalamine 2016-0 Yes 1000mg Take 2 Uni vers CR 5-17 capsules ity of (PENTASA) 00:00: by mouth 4 [place] 500 mg CR 00 (four) Medical capsule times Branch daily. mesalamine Yes 1000mg Take 2 Uni vers CR 5-17 capsules ity of (PENTASA) 00:00: by mouth 4 [place] 500 mg CR 00 (four) Medical capsule times Branch daily. mesalamine Yes 1000mg Take 2 Uni vers CR 5-17 capsules ity of (PENTASA) 00:00: by mouth 4 [place] 500 mg CR 00 (four) Medical capsule times Branch daily. mesalamine Yes 1000mg Take 2 Uni vers CR 5-17 capsules ity of (PENTASA) 00:00: by mouth 4 [place] 500 mg CR 00 (four) Medical capsule times Branch daily. mesalamine 2020- No 1000mg Take 2 Un matt CR 5-17 04-18 capsules ity of (PENTASA) 00:00: 00:00 by mouth 4 [place] 500 mg CR 00 :00 (four) Medical capsule times Branch daily. HYDROcodone 2020- No 1{tbl} Take 1 U nivers -acetaminop 5-17 02-14 tablet by it y of hen (NORCO) 00:00: 00:00 mouth 2 [place] 10-325 mg 00 :00 (two) Medical tablet times Branch daily. HYDROcodone 2020- No 1{tbl} Take 1 U nivers -acetaminop 5-17 02-14 tablet by it y of hen (NORCO) 00:00: 00:00 mouth 2 [place] 10-325 mg 00 :00 (two) Medical tablet times Branch daily. tamsulosin 2014-02 Yes .4mg Take 1 Cap U nivers (FLOMAX) 0-20 by mouth ity of 0.4 mg 24 00:00: daily. [place] hr capsule Medical Branch tamsulosin 2014-02 Yes .4mg Take 1 Cap U nivers (FLOMAX) 0-20 by mouth ity of 0.4 mg 24 00:00: daily. [place] hr capsule Medical Branch tamsulosin 2014-02 Yes .4mg Take 1 Cap U nivers (FLOMAX) 0-20 by mouth ity of 0.4 mg 24 00:00: daily. [place] hr capsule Medical Branch tamsulosin 2014-02 Yes .4mg Take 1 Cap U nivers (FLOMAX) 0-20 by mouth ity of 0.4 mg 24 00:00: daily. [facility] [place] [facility] capsule [facility] Branch tamsulosin 2014-02 Yes .4mg Take 1 Cap U nivers (FLOMAX) 0-20 by mouth ity of 0.4 mg 24 00:00: daily. [facility] [place] [facility] capsule [facility] tamsulosin 2014-02 Yes .4mg Take 1 Cap U nivers (FLOMAX) 0-20 by mouth ity of 0.4 mg 24 00:00: daily. [facility] [place] [facility] capsule [facility] Branch tamsulosin 2014-02 Yes .4mg Take 1 Cap U nivers (FLOMAX) 0-20 by mouth ity of 0.4 mg 24 00:00: daily. [facility] [place] [facility] capsule [facility] tamsulosin 2014-02 Yes .4mg Take 1 Cap U nivers (FLOMAX) 0-20 by mouth ity of 0.4 mg 24 00:00: daily. [facility] [place] [facility] capsule [facility] tamsulosin 2014-02 Yes .4mg Take 1 Cap U nivers (FLOMAX) 0-20 by mouth ity of 0.4 mg 24 00:00: daily. [facility] [place] [facility] capsule [facility] tamsulosin 2014-02 Yes .4mg Take 1 Cap U nivers (FLOMAX) 0-20 by mouth ity of 0.4 mg 24 00:00: daily. [facility] [place] [facility] capsule [facility] tamsulosin 2014-02 Yes .4mg Take 1 Cap U nivers (FLOMAX) 0-20 by mouth ity of 0.4 mg 24 00:00: daily. [facility] [place] [facility] capsule [facility] tamsulosin 2014-02 Yes .4mg Take 1 Cap U nivers (FLOMAX) 0-20 by mouth ity of 0.4 mg 24 00:00: daily. [facility] [place] [facility] capsule [facility] Branch tamsulosin 2014-02 Yes .4mg Take 1 Cap U nivers (FLOMAX) 0-20 by mouth ity of 0.4 mg 24 00:00: daily. [facility] [place] [facility] capsule [facility] Branch tamsulosin 2014-02 Yes .4mg Take 1 Cap U nivers (FLOMAX) 0-20 by mouth ity of 0.4 mg 24 00:00: daily. [facility] [place] [facility] capsule Medical Branch tamsulosin 2014-02 Yes .4mg Take 1 Cap U nivers (FLOMAX) 0-20 by mouth ity of 0.4 mg 24 00:00: daily. [facility] [place] [facility] capsule [facility] Branch tamsulosin 2014-02 Yes .4mg Take 1 Cap U nivers (FLOMAX) 0-20 by mouth ity of 0.4 mg 24 00:00: daily. [facility] [place] [facility] capsule [facility] Branch tamsulosin 2014-02 Yes .4mg Take 1 Cap U nivers (FLOMAX) 0-20 by mouth ity of 0.4 mg 24 00:00: daily. [facility] [place] [facility] capsule [facility] Branch tamsulosin 2014-02 Yes .4mg Take 1 Cap U nivers (FLOMAX) 0-20 by mouth ity of 0.4 mg 24 00:00: daily. [facility] [place] [facility] capsule [facility] tamsulosin 2014-02 Yes .4mg Take 1 Cap U nivers (FLOMAX) 0-20 by mouth ity of 0.4 mg 24 00:00: daily. [facility] [place] [facility] capsule [facility] Branch tamsulosin 2014-02 Yes .4mg Take 1 Cap U nivers (FLOMAX) 0-20 by mouth ity of 0.4 mg 24 00:00: daily. [facility] [place] [facility] capsule [facility] Branch tamsulosin 2014-02 Yes .4mg Take 1 Cap U nivers (FLOMAX) 0-20 by mouth ity of 0.4 mg 24 00:00: daily. [facility] [place] [facility] capsule [facility] Branch tamsulosin 2014-02 Yes .4mg Take 1 Cap U nivers (FLOMAX) 0-20 by mouth ity of 0.4 mg 24 00:00: daily. [facility] [place] [facility] capsule [facility] Branch tamsulosin 2014-02 Yes .4mg Take 1 Cap U nivers (FLOMAX) 0-20 by mouth ity of 0.4 mg 24 00:00: daily. [facility] [place] [facility] capsule [facility] Branch tamsulosin 2014-02 Yes .4mg Take 1 Cap U nivers (FLOMAX) 0-20 by mouth ity of 0.4 mg 24 00:00: daily. [facility] [place] [facility] [facility] capsule [facility] tamsulosin 2014-02 Yes .4mg Take 1 Cap U nivers (FLOMAX) 0-20 by mouth ity of 0.4 mg 24 00:00: daily. [facility] [place] [facility] capsule [facility] tamsulosin 2014-02 Yes .4mg Take 1 Cap U nivers (FLOMAX) 0-20 by mouth ity of 0.4 mg 24 00:00: daily. [place] [facility] capsule [facility] tamsulosin 2014-02 Yes .4mg Take 1 Cap U nivers (FLOMAX) 0-20 by mouth ity of 0.4 mg 24 00:00: daily. [place] [facility] capsule [facility] tamsulosin 2014-02 Yes .4mg Take 1 Cap U nivers (FLOMAX) 0-20 by mouth ity of 0.4 mg 24 00:00: daily. [place] [facility] capsule [facility] tamsulosin 2014-02- No .4mg Take 1 Cap Univers (FLOMAX) 0-20 04-01 by mouth ity of 0.4 mg 24 00:00: 00:00 daily. [place] [facility] capsule 00 : [facility] Ewing Ewing Yes Levy [address] [facility] Amitriptyli Amitriptyli Yes [facility] [address] [facility] HCl ne HCl [facility] Zofran Zofran Yes [facility] [address] [facility] Pentasa Pentasa Yes [facility] [address] [facility] Lyrica Lyrica Yes Levy [address] [facility] 1 to 3 [facility] before l bed[facility] Immunizations Ordered Filled Immunization Date Status Comments [facility] e Immunization Name Name Twinrix (hep a/hep 2015-07-29 Completed Univer sity of b) 00:00:00 [facility] Twinrix (hep a/hep 2015-07-29 Completed Univer sity of b) 00:00:00 [facility] Twinrix (hep a/hep 2015-07-29 Completed Univer sity of b) 00:00:00 [facility] Twinrix (hep a/hep 2015-07-29 Completed Univer sity of b) 00:00:00 [facility] Twinrix (hep a/hep 2015-07-29 Completed Univer sity of b) 00:00:00 [facility] Twinrix (hep a/hep 2015-07-29 Completed Univer sity of b) 00:00:00 [facility] Twinrix (hep a/hep 2015-07-29 Completed Univer sity of b) 00:00:00 [facility] Twinrix (hep a/hep 2015-07-29 Completed Univer sity of b) 00:00:00 [facility] Twinrix (hep a/hep 2015-07-29 Completed Univer sity of b) 00:00:00 [facility] Twinrix (hep a/hep 2015-07-29 Completed Univer sity of b) 00:00:00 [facility] Twinrix (hep a/hep 2015-07-29 Completed Univer sity of b) 00:00:00 [facility] Twinrix (hep a/hep 2015-07-29 Completed Univer sity of b) 00:00:00 [facility] Twinrix (hep a/hep 2015-07-29 Completed Univer sity of b) 00:00:00 [facility] Twinrix (hep a/hep 2015-07-29 Completed Univer sity of b) 00:00:00 [facility] Twinrix (hep a/hep 2015-07-29 Completed Univer sity of b) 00:00:00 [facility] Twinrix (hep a/hep 2015-07-29 Completed Univer sity of b) 00:00:00 [facility] Twinrix (hep a/hep 2015-07-29 Completed Univer sity of b) 00:00:00 [facility] Twinrix (hep a/hep 2015-07-29 Completed Univer sity of b) 00:00:00 [facility] Twinrix (hep a/hep 2015-07-29 Completed Univer sity of b) 00:00:00 [facility] Twinrix (hep a/hep 2015-07-29 Completed Univer sity of b) 00:00:00 [facility] Twinrix (hep a/hep 2015-07-29 Completed Univer sity of b) 00:00:00 [facility] Twinrix (hep a/hep 2015-07-29 Completed Univer sity of b) 00:00:00 [facility] Twinrix (hep a/hep 2015-07-29 Completed Univer sity of b) 00:00:00 [facility] Twinrix (hep a/hep 2015-07-29 Completed Univer sity of b) 00:00:00 [facility] Twinrix (hep a/hep 2015-07-29 Completed Univer sity of b) 00:00:00 [facility] Twinrix (hep a/hep 2015-07-29 Completed Univer sity of b) 00:00:00 [facility] Twinrix (hep a/hep 2015-07-29 Completed Univer sity of b) 00:00:00 [facility] Twinrix (hep a/hep 2015-07-29 Completed Univer sity of b) 00:00:00 [facility] Twinrix (hep a/hep 2015-07-29 Completed Univer sity of b) 00:00:00 [facility] Twinrix (hep a/hep 2015-07-29 Completed Univer sity of b) 00:00:00 [facility] Twinrix (hep a/hep 2015-07-29 Completed Univer sity of b) 00:00:00 [facility] Twinrix (hep a/hep 2015-07-29 Completed Univer sity of b) 00:00:00 [facility] Twinrix (hep a/hep 2015-07-29 Completed Univer sity of b) 00:00:00 [facility] Twinrix (hep a/hep 2015-07-29 Completed Univer sity of b) 00:00:00 [facility] Twinrix (hep a/hep 2015-07-29 Completed Univer sity of b) 00:00:00 [facility] Twinrix (hep a/hep 2015-07-29 Completed Univer sity of b) 00:00:00 [facility] Twinrix (hep a/hep 2015-07-29 Completed Univer sity of b) 00:00:00 [facility] Twinrix (hep a/hep 2015-07-29 Completed Univer sity of b) 00:00:00 [facility] Twinrix (hep a/hep 2015-07-29 Completed Univer sity of b) 00:00:00 [facility] Twinrix (hep a/hep 2015-07-29 Completed Univer sity of b) 00:00:00 [facility] Twinrix (hep a/hep 2015-07-29 Completed Univer sity of b) 00:00:00 [facility] Twinrix (hep a/hep 2015-07-29 Completed Univer sity of b) 00:00:00 [facility] Twinrix (hep a/hep 2015-07-29 Completed Univer sity of b) 00:00:00 [facility] Twinrix (hep a/hep 2015-07-29 Completed Univer sity of b) 00:00:00 [facility] Twinrix (hep a/hep 2015-07-29 Completed Univer sity of b) 00:00:00 [facility] Twinrix (hep a/hep 2015-07-29 Completed Univer sity of b) 00:00:00 [facility] Twinrix (hep a/hep 2015-07-29 Completed Univer sity of b) 00:00:00 [facility] Twinrix (hep a/hep 2015-07-29 Completed Univer sity of b) 00:00:00 [facility] Twinrix (hep a/hep 2015-07-29 Completed Univer sity of b) 00:00:00 [facility] Twinrix (hep a/hep 2015-07-29 Completed Univer sity of b) 00:00:00 [facility] Twinrix (hep a/hep 2015-07-29 Completed Univer sity of b) 00:00:00 [facility] Twinrix (hep a/hep 2015-07-29 Completed Univer sity of b) 00:00:00 [facility] Twinrix (hep a/hep 2015-07-29 Completed Univer sity of b) 00:00:00 [facility] Twinrix (hep a/hep 2015-07-29 Completed Univer sity of b) 00:00:00 [facility] Twinrix (hep a/hep 2015-07-29 Completed Univer sity of b) 00:00:00 [facility] Twinrix (hep a/hep 2015-07-29 Completed Univer sity of b) 00:00:00 [facility] Twinrix (hep a/hep 2015-07-29 Completed Univer sity of b) 00:00:00 [facility] Twinrix (hep a/hep 2015-07-29 Completed Univer sity of b) 00:00:00 [facility] Twinrix (hep a/hep 2015-07-29 Completed Univer sity of b) 00:00:00 [facility] Twinrix (hep a/hep 2015-07-29 Completed Univer sity of b) 00:00:00 [facility] Influenza Virus 2015-06-29 Completed Universit y of [facility] IM 3+ 00:00:00 [facility] Influenza Virus 2015-06-29 Completed Universit y of [facility] IM 3+ 00:00:00 [facility] Influenza Virus 2015-06-29 Completed Universit y of [facility] IM 3+ 00:00:00 [facility] Influenza Virus 2015-06-29 Completed [facility]it y of [facility] IM 3+ 00:00:00 [facility] Influenza Virus 2015-06-29 Completed [facility]it y of [facility] IM 3+ 00:00:00 [facility] Influenza Virus 2015-06-29 Completed [facility]it y of [facility] IM 3+ 00:00:00 [facility] Influenza Virus 2015-06-29 Completed [facility]it y of [facility] IM 3+ 00:00:00 [facility] Influenza Virus 2015-06-29 Completed [facility]it y of [facility] IM 3+ 00:00:00 [facility] Influenza Virus 2015-06-29 Completed [facility]it y of [facility] IM 3+ 00:00:00 [facility] Influenza Virus 2015-06-29 Completed [facility]it y of [facility] IM 3+ 00:00:00 [facility] Influenza Virus 2015-06-29 Completed [facility]it y of [facility] IM 3+ 00:00:00 [facility] Influenza Virus 2015-06-29 Completed [facility]it y of [facility] IM 3+ 00:00:00 [facility] Influenza Virus 2015-06-29 Completed [facility]it y of [facility] IM 3+ 00:00:00 [facility] Influenza Virus 2015-06-29 Completed [facility]it y of [facility] IM 3+ 00:00:00 [facility] Influenza Virus 2015-06-29 Completed [facility]it y of [facility] IM 3+ 00:00:00 [facility] Influenza Virus 2015-06-29 Completed [facility]it y of [facility] IM 3+ 00:00:00 [facility] Influenza Virus 2015-06-29 Completed [facility]it y of [facility] IM 3+ 00:00:00 [facility] Influenza Virus 2015-06-29 Completed [facility]it y of [facility] IM 3+ 00:00:00 [facility] Influenza Virus 2015-06-29 Completed [facility]it y of [facility] IM 3+ 00:00:00 [facility] Influenza Virus 2015-06-29 Completed [facility]it y of [facility] IM 3+ 00:00:00 [facility] Influenza Virus 2015-06-29 Completed [facility]it y of [facility] IM 3+ 00:00:00 [facility] Influenza Virus 2015-06-29 Completed [facility]it y of [facility] IM 3+ 00:00:00 [facility] Influenza Virus 2015-06-29 Completed [facility] y of [facility] IM 3+ 00:00:00 [facility] Influenza Virus 2015-06-29 Completed [facility] y of [facility] IM 3+ 00:00:00 [facility] Influenza Virus 2015-06-29 Completed [facility] y of [facility] IM 3+ 00:00:00 [facility] Influenza Virus 2015-06-29 Completed [facility] y of [facility] IM 3+ 00:00:00 [facility] Influenza Virus 2015-06-29 Completed [facility]it y of [facility] IM 3+ 00:00:00 [facility] Influenza Virus 2015-06-29 Completed [facility] y of [facility] IM 3+ 00:00:00 [facility] Influenza Virus 2015-06-29 Completed [facility]it y of [facility] IM 3+ 00:00:00 [facility] Influenza Virus 2015-06-29 Completed [facility]it y of [facility] IM 3+ 00:00:00 [facility] Influenza Virus 2015-06-29 Completed [facility]it y of [facility] IM 3+ 00:00:00 [facility] Influenza Virus 2015-06-29 Completed [facility] y of [facility] IM 3+ 00:00:00 [facility] Influenza Virus 2015-06-29 Completed [facility]it y of [facility] IM 3+ 00:00:00 [facility] Influenza Virus 2015-06-29 Completed [facility] y of [facility] IM 3+ 00:00:00 [facility] Influenza Virus 2015-06-29 Completed [facility] y of [facility] IM 3+ 00:00:00 [facility] Influenza Virus 2015-06-29 Completed [facility]it y of [facility] IM 3+ 00:00:00 [facility] Influenza Virus 2015-06-29 Completed [facility] y of [facility] IM 3+ 00:00:00 [facility] Influenza Virus 2015-06-29 Completed [facility]it y of [facility] IM 3+ 00:00:00 [facility] Influenza Virus 2015-06-29 Completed [facility]it y of [facility]ine [facility] IM 3+ 00:00:00 [facility] Influenza Virus 2015-06-29 Completed [facility]it y of [facility] IM 3+ 00:00:00 [facility] Influenza Virus 2015-06-29 Completed [facility]it y of Vaccine [facility] IM 3+ 00:00:00 [facility] Influenza Virus 2015-06-29 Completed [facility]it y of [facility] IM 3+ 00:00:00 [facility] Influenza Virus 2015-06-29 Completed [facility]it y of [facility] IM 3+ 00:00:00 [facility] Influenza Virus 2015-06-29 Completed [facility]it y of [facility] IM 3+ 00:00:00 [facility] Influenza Virus 2015-06-29 Completed [facility]it y of [facility] IM 3+ 00:00:00 [facility] Influenza Virus 2015-06-29 Completed [facility]it y of [facility] IM 3+ 00:00:00 [facility] Influenza Virus 2015-06-29 Completed [facility]it y of [facility] IM 3+ 00:00:00 [facility] Influenza Virus 2015-06-29 Completed [facility]it y of [facility] IM 3+ 00:00:00 [facility] Influenza Virus 2015-06-29 Completed [facility]it y of [facility] IM 3+ 00:00:00 [facility] Influenza Virus 2015-06-29 Completed [facility] y of [facility] IM 3+ 00:00:00 [facility] Influenza Virus 2015-06-29 Completed [facility]it y of [facility] IM 3+ 00:00:00 [facility] Influenza Virus 2015-06-29 Completed [facility] y of Vaccine [facility] IM 3+ 00:00:00 [facility] Influenza Virus 2015-06-29 Completed [facility]it y of Vaccine [facility] IM 3+ 00:00:00 [facility] Influenza Virus 2015-06-29 Completed [facility]it y of Vaccine [facility] IM 3+ 00:00:00 [facility] Influenza Virus 2015-06-29 Completed [facility]it y of Vaccine [facility] IM 3+ 00:00:00 [facility] Influenza Virus 2015-06-29 Completed [facility]it y of Vaccine [facility] IM 3+ 00:00:00 [facility] Influenza Virus 2015-06-29 Completed [facility]it y of Vaccine [facility] IM 3+ 00:00:00 [facility] Influenza Virus 2015-06-29 Completed [facility]it y of Vaccine [facility] IM 3+ 00:00:00 [facility] Influenza Virus 2015-06-29 Completed [facility]it y of Vaccine [facility] IM 3+ 00:00:00 [facility] Influenza Virus 2015-06-29 Completed [facility] y of [facility] IM 3+ 00:00:00 [facility] Twinrix (hep a/hep 2015-06-28 Completed Univer sity of b) 00:00:00 [facility] Twinrix (hep a/hep 2015-06-28 Completed Univer sity of b) 00:00:00 [facility] Twinrix (hep a/hep 2015-06-28 Completed Univer sity of b) 00:00:00 [facility] Twinrix (hep a/hep 2015-06-28 Completed Univer sity of b) 00:00:00 [facility] Twinrix (hep a/hep 2015-06-28 Completed Univer sity of b) 00:00:00 [facility] Twinrix (hep a/hep 2015-06-28 Completed Univer sity of b) 00:00:00 [facility] Twinrix (hep a/hep 2015-06-28 Completed Univer sity of b) 00:00:00 [facility] Twinrix (hep a/hep 2015-06-28 Completed Univer sity of b) 00:00:00 [facility] Twinrix (hep a/hep 2015-06-28 Completed Univer sity of b) 00:00:00 [facility] Twinrix (hep a/hep 2015-06-28 Completed Univer sity of b) 00:00:00 [facility] Twinrix (hep a/hep 2015-06-28 Completed Univer sity of b) 00:00:00 [facility] Twinrix (hep a/hep 2015-06-28 Completed Univer sity of b) 00:00:00 [facility] Twinrix (hep a/hep 2015-06-28 Completed Univer sity of b) 00:00:00 [facility] Twinrix (hep a/hep 2015-06-28 Completed Univer sity of b) 00:00:00 [facility] Twinrix (hep a/hep 2015-06-28 Completed Univer sity of b) 00:00:00 [facility] Twinrix (hep a/hep 2015-06-28 Completed Univer sity of b) 00:00:00 [facility] Twinrix (hep a/hep 2015-06-28 Completed Univer sity of b) 00:00:00 [facility] Twinrix (hep a/hep 2015-06-28 Completed Univer sity of b) 00:00:00 [facility] Twinrix (hep a/hep 2015-06-28 Completed Univer sity of b) 00:00:00 [facility] Twinrix (hep a/hep 2015-06-28 Completed Univer sity of b) 00:00:00 [facility] Twinrix (hep a/hep 2015-06-28 Completed Univer sity of b) 00:00:00 [facility] Twinrix (hep a/hep 2015-06-28 Completed Univer sity of b) 00:00:00 [facility] Twinrix (hep a/hep 2015-06-28 Completed Univer sity of b) 00:00:00 [facility] Twinrix (hep a/hep 2015-06-28 Completed Univer sity of b) 00:00:00 [facility] Twinrix (hep a/hep 2015-06-28 Completed Univer sity of b) 00:00:00 [facility] Twinrix (hep a/hep 2015-06-28 Completed Univer sity of b) 00:00:00 [facility] Twinrix (hep a/hep 2015-06-28 Completed Univer sity of b) 00:00:00 [facility] Twinrix (hep a/hep 2015-06-28 Completed Univer sity of b) 00:00:00 [facility] Twinrix (hep a/hep 2015-06-28 Completed Univer sity of b) 00:00:00 [facility] Twinrix (hep a/hep 2015-06-28 Completed Univer sity of b) 00:00:00 [facility] Twinrix (hep a/hep 2015-06-28 Completed Univer sity of b) 00:00:00 [facility] Twinrix (hep a/hep 2015-06-28 Completed Univer sity of b) 00:00:00 [facility] Twinrix (hep a/hep 2015-06-28 Completed Univer sity of b) 00:00:00 [facility] Twinrix (hep a/hep 2015-06-28 Completed Univer sity of b) 00:00:00 [facility] Twinrix (hep a/hep 2015-06-28 Completed Univer sity of b) 00:00:00 [facility] Twinrix (hep a/hep 2015-06-28 Completed Univer sity of b) 00:00:00 [facility] Twinrix (hep a/hep 2015-06-28 Completed Univer sity of b) 00:00:00 [facility] Twinrix (hep a/hep 2015-06-28 Completed Univer sity of b) 00:00:00 [facility] Twinrix (hep a/hep 2015-06-28 Completed Univer sity of b) 00:00:00 [facility] Twinrix (hep a/hep 2015-06-28 Completed Univer sity of b) 00:00:00 [facility] Twinrix (hep a/hep 2015-06-28 Completed Univer sity of b) 00:00:00 [facility] Twinrix (hep a/hep 2015-06-28 Completed Univer sity of b) 00:00:00 [facility] Twinrix (hep a/hep 2015-06-28 Completed Univer sity of b) 00:00:00 [facility] Twinrix (hep a/hep 2015-06-28 Completed Univer sity of b) 00:00:00 [facility] Twinrix (hep a/hep 2015-06-28 Completed Univer sity of b) 00:00:00 [facility] Twinrix (hep a/hep 2015-06-28 Completed Univer sity of b) 00:00:00 [facility] Twinrix (hep a/hep 2015-06-28 Completed Univer sity of b) 00:00:00 [facility] Twinrix (hep a/hep 2015-06-28 Completed Univer sity of b) 00:00:00 [facility] Twinrix (hep a/hep 2015-06-28 Completed Univer sity of b) 00:00:00 [facility] Twinrix (hep a/hep 2015-06-28 Completed Univer sity of b) 00:00:00 [facility] Twinrix (hep a/hep 2015-06-28 Completed Univer sity of b) 00:00:00 [facility] Twinrix (hep a/hep 2015-06-28 Completed Univer sity of b) 00:00:00 [facility] Twinrix (hep a/hep 2015-06-28 Completed Univer sity of b) 00:00:00 [facility] Twinrix (hep a/hep 2015-06-28 Completed Univer sity of b) 00:00:00 [facility] Twinrix (hep a/hep 2015-06-28 Completed Univer sity of b) 00:00:00 [facility] Twinrix (hep a/hep 2015-06-28 Completed Univer sity of b) 00:00:00 [facility] Twinrix (hep a/hep 2015-06-28 Completed Univer sity of b) 00:00:00 [facility] Twinrix (hep a/hep 2015-06-28 Completed Univer sity of b) 00:00:00 [facility] Twinrix (hep a/hep 2015-06-28 Completed Univer sity of b) 00:00:00 [facility] Twinrix (hep a/hep 2015-06-28 Completed Univer sity of b) 00:00:00 [facility] Vital Signs Vital Name Observation Time Observation Value Comments Source Systolic blood 2020-12-12 16:16:00 97 mm[Hg] Univer sity of pressure [facility] Diastolic blood 2020-12-12 16:16:00 67 mm[Hg] Unive rsity of pressure [facility] Heart rate 2020-12-12 16:16:00 97 /min [facility] Body temperature 2020-12-12 16:16:00 37.67 Briseida [facility] Respiratory rate 2020-12-12 16:16:00 18 /min [facility] Oxygen saturation in 2020-12-12 16:16:00 93 /min [facility] blood by [place] [facility] Body weight 2020-12-12 08:45:00 95.391 kg [facility] BMI 2020-12-12 08:45:00 32.94 kg/m2 [facility] Body height 2020-12-05 22:36:00 170.2 cm [facility] Systolic blood 2020-07-14 22:03:00 156 mm[Hg] [facility] Diastolic blood 2020-07-14 22:03:00 93 mm[Hg] [facility]ive rsity [facility] Heart rate 2020-07-14 22:03:00 84 /min [facility] Respiratory rate 2020-07-14 22:03:00 20 /min [facility] Oxygen saturation in 2020-07-14 22:03:00 98 /min [facility] blood by [facility] Pulse oxim[facility] Branch Body temperature 2020-07-14 03:11:00 36.67 Briseida [facility] Body weight 2020-07-13 20:13:00 83.898 kg [facility] BMI 2020-07-13 20:13:00 28.97 kg/m2 [facility] Systolic blood 2020-07-13 15:43:00 119 mm[Hg] [facility] Diastolic blood 2020-07-13 15:43:00 77 mm[Hg] [facility]ive rsity of [facility] Heart rate 2020-07-13 15:43:00 68 /min [facility] Oxygen saturation in 2020-07-13 15:43:00 95 /min [facility] blood by [place] [facility] Systolic blood 2020-07-07 04:00:00 142 mm[Hg] [facility]ity [facility] Diastolic blood 2020-07-07 04:00:00 94 mm[Hg] Unive rsity of [facility] Heart rate 2020-07-07 04:00:00 73 /min [facility] Respiratory rate 2020-07-07 04:00:00 13 /min [facility] Oxygen saturation in 2020-07-07 04:00:00 99 /min [facility] blood by [facility] P[facility] Branch Body temperature 2020-07-07 00:04:24 36.83 Briseida [facility] Body weight 2020-07-06 23:44:00 86.183 kg [facility] BMI 2020-07-06 23:44:00 29.76 kg/m2 [facility] Systolic blood 2020-07-04 21:16:00 142 mm[Hg] [facility] Diastolic blood 2020-07-04 21:16:00 93 mm[Hg] Unive rsity of pressure [facility] Heart rate 2020-07-04 21:16:00 72 /min [facility] Respiratory rate 2020-07-04 21:16:00 18 /min [facility] Oxygen saturation in 2020-07-04 21:16:00 97 /min [facility] blood by [facility] Pulse [facility]xim[facility] Branch Body temperature 2020-07-04 17:14:00 36.89 Briseida [facility] Body weight 2020-07-04 17:14:00 86.183 kg [facility] BMI 2020-07-04 17:14:00 29.76 kg/m2 [facility] Systolic blood 2020-06-28 20:07:00 110 mm[Hg] [facility] Diastolic blood 2020-06-28 20:07:00 67 mm[Hg] [facility] Heart rate 2020-06-28 20:07:00 57 /min [facility] Body temperature 2020-06-28 20:07:00 36.83 Briseida [facility] Respiratory rate 2020-06-28 20:07:00 16 /min [facility] Oxygen saturation in 2020-06-28 20:07:00 99 /min [facility] Arterial blood by [facility] Pulse oximetry Branch Body height 2020-06-27 03:02:00 170.2 cm [facility] Body weight 2020-06-27 03:02:00 83.008 kg [facility] BMI 2020-06-27 03:02:00 28.66 kg/m2 [facility] Systolic blood 2020-06-02 16:17:00 133 mm[Hg] [facility] Diastolic blood 2020-06-02 16:17:00 89 mm[Hg] [facility] Heart rate 2020-06-02 16:17:00 72 /min [facility] Body temperature 2020-06-02 16:17:00 36.17 Briseida [facility] Respiratory rate 2020-06-02 16:17:00 20 /min [facility] Oxygen saturation in 2020-06-02 16:17:00 96 /min [facility] [place] [facility] Pulse oximetry Branch Body height 2020-05-30 22:29:00 170.2 cm [facility] Body weight 2020-05-30 22:29:00 81.647 kg [facility] BMI 2020-05-30 22:29:00 28.19 kg/m2 [facility] Systolic blood 2020-05-27 02:05:00 118 mm[Hg] [facility] Diastolic blood 2020-05-27 02:05:00 73 mm[Hg] [facility] Heart rate 2020-05-27 02:05:00 80 /min [facility] Respiratory rate 2020-05-27 02:05:00 10 /min [facility] Oxygen saturation in 2020-05-27 02:05:00 93 /min [facility] [place] [facility] Pulse oxim[facility] Body temperature 2020-05-26 23:07:00 37.22 Briseida [facility] Body height 2020-05-26 23:07:00 170.2 cm [facility] Body weight 2020-05-26 23:07:00 88.451 kg [facility] BMI 2020-05-26 23:07:00 30.54 kg/m2 [facility] Systolic blood 2020-05-13 22:00:00 106 mm[Hg] [facility] Diastolic blood 2020-05-13 22:00:00 57 mm[Hg] [facility] Heart rate 2020-05-13 22:00:00 54 /min [facility] Respiratory rate 2020-05-13 22:00:00 16 /min [facility] Oxygen saturation in 2020-05-13 22:00:00 100 /min [facility] [place] [facility] P[facility] Body temperature 2020-05-13 16:33:00 37.56 Briseida [facility] Body weight 2020-05-13 16:33:00 77.111 kg [facility] BMI 2020-05-13 16:33:00 26.63 kg/m2 [facility] Systolic blood 2020-05-13 15:28:00 135 mm[Hg] [facility] Diastolic blood 2020-05-13 15:28:00 88 mm[Hg] [facility] Heart rate 2020-05-13 15:28:00 80 /min [facility] Body temperature 2020-05-13 15:28:00 36.67 Briseida [facility] Respiratory rate 2020-05-13 15:28:00 18 /min [facility] Body height 2020-05-13 15:28:00 170.2 cm [facility] Body weight 2020-05-13 15:28:00 77.111 kg [facility] BMI 2020-05-13 15:28:00 26.63 kg/m2 [facility] Oxygen saturation in 2020-05-13 15:28:00 99 /min [facility] [place] [facility] Pulse [facility]xim[facility] Branch Systolic blood 2020-03-23 15:48:00 130 mm[Hg] [facility] Diastolic blood 2020-03-23 15:48:00 89 mm[Hg] [facility] Heart rate 2020-03-23 15:48:00 95 /min [facility] Body height 2020-03-23 15:48:00 170.2 cm [facility] Body weight 2020-03-23 15:48:00 83.008 kg [facility] BMI 2020-03-23 15:48:00 28.66 kg/m2 [facility] Oxygen saturation in 2020-03-23 15:48:00 100 /min [facility] [place] [facility] Pulse oxim[facility] Branch Systolic blood 2019-12-08 18:48:47 99 mm[Hg] [facility] Diastolic blood 2019-12-08 18:48:47 70 mm[Hg] [facility] Heart rate 2019-12-08 18:48:47 63 /min [facility] Respiratory rate 2019-12-08 18:48:47 18 /min [facility] Oxygen saturation in 2019-12-08 18:48:47 100 /min [facility] [place] [facility] Pulse oximetry Branch Body temperature 2019-12-08 16:07:00 37 Briseida [facility] Body height 2019-12-08 16:07:00 170.2 cm [facility] Body weight 2019-12-08 16:07:00 81.647 kg [facility] BMI 2019-12-08 16:07:00 28.19 kg/m2 [facility] Systolic blood 2019-12-08 15:11:00 119 mm[Hg] [facility] Diastolic blood 2019-12-08 15:11:00 80 mm[Hg] [facility] Heart rate 2019-12-08 15:11:00 83 /min [facility] Body temperature 2019-12-08 15:11:00 36.44 Briseida [facility] Respiratory rate 2019-12-08 15:11:00 18 /min [facility] Body weight 2019-12-08 15:11:00 82.827 kg [facility] BMI 2019-12-08 15:11:00 28.60 kg/m2 [facility] Procedures Procedure Date / Time Performing Clinician Source Performed PHOSPHORUS 2020-12-12 10[facility]06[facility]-12-12 10:06:00 Sandrita [facility] BASIC METABOLIC PANEL 2020-12-12 10:06:00 Nehemias Pollock Rene [facility] (NA, K, CL, CO2, GLUCOSE, Medica l Branch BUN, CREATININE, CA) VANCOMYCIN RANDOM LEVEL 2020-12-11 14:30:00 Nasir Fowler [facility] OSMOLALITY URINE 2020-12-11 10:41:00 Nicole Sanchez [facility] CREATININE, URINE RANDOM 2020-12-11 10:39:00 Nicole Sanchez [facility] POTASSIUM, URINE RANDOM 2020-12-11 10:39:00 Nicole Sanchez [facility] SODIUM, URINE RANDOM 2020-12-11 10:39:00 Nicole Sanchez [facility] PHOSPHORUS 2020-12-11 08:50:00 Sandrita [facility] URIC ACID 2020-12-11 08:50:00 Nicole Sanchez [facility] MAGNESIUM 2020-12-11 08:50:00 Sandrita [facility] OSMOLALITY, SERUM OR 2020-12-11 08:50:00 Nicole Sanchez [facility] BASIC METABOLIC PANEL 2020-12-11 08:50:00 [facility] (NA, K, CL, CO2, GLUCOSE, Medica l Branch BUN, CREATININE, CA) CBC WITH DIFF 2020-12-11 08:50:00 Nasir Fowler [facility] URINALYSIS 2020-12-10 20:31:00 Cynthia Fowlereeb [facility] URINE CULTURE 2020-12-10 20:31:00 Janeth Nasir [facility] BLOOD CULTURE SCREEN 2020-12-10 17:58:00 Nasir Fowler [facility] BLOOD CULTURE SCREEN 2020-12-10 17:51:00 Janeth Nasir [facility] PHOSPHORUS 2020-12-10 17:50:00 Zenaida Rodrigez [facility] BASIC METABOLIC PANEL 2020-12-10 17:50:00 Nicole Sanchez [facility] (NA, K, CL, CO2, GLUCOSE, Medica l Branch BUN, CREATININE, CA) CBC WITH DIFF 2020-12-10 17:49:00 Janeth [facility] XR CHEST 1 VW 2020-12-10 17:21:04 Janeth [facility] VANCOMYCIN TROUGH 2020-12-10 14:44:00 Sandrita [facility] PHOSPHORUS 2020-12-10 10:29:00 Sandrita [facility] MAGNESIUM 2020-12-10 10:29:00 Sandrita [facility] BASIC METABOLIC PANEL 2020-12-10 10:29:00 Sandrita [facility] (NA, K, CL, CO2, GLUCOSE, Medica l Branch BUN, CREATININE, CA) BASIC METABOLIC PANEL 2020-12-10 00:50:00 Nicole Sanchez [facility] (NA, K, CL, CO2, GLUCOSE, Medica l Branch BUN, CREATININE, CA) VANCOMYCIN TROUGH 2020-12-09 19:02:00 Sandrita [facility] PHOSPHORUS 2020-12-09 09:58:00 Sandrita [facility] MAGNESIUM 2020-12-09 09:58:00 Sandrita [facility] BASIC METABOLIC PANEL 2020-12-09 09:58:00 Sandrita [facility] (NA, K, CL, CO2, GLUCOSE, Medica l Branch BUN, CREATININE, CA) CT ABDOMEN PELVIS W 2020-12-08 17:35:25 Lesley Jay [facility] PHOSPHORUS 2020-12-08 09:38:00 Sandrita [facility] MAGNESIUM 2020-12-08 09:38:00 [facility]OL[facility] PAN[facility] 2020-12-08 09:38:00 [facility] ([facility], K, CL, CO2, GLUCOSE, Medica l Branch BUN, CREATININE, CA) VANCOMYCIN TROUGH 2020-12-08 06:35:00 Sandrita [facility] TRANSTHORACIC ECHO (TTE) 2020-12-07 18:35:00 Nasir Fowler [facility] MAGNESIUM 2020-12-07 09:59:00 [facility] BASIC METABOLIC PANEL 2020-12-07 09:59:00 [facility] (NA, K, CL, CO2, GLUCOSE, Medica l Branch BUN, CREATININE, CA) CBC WITH DIFF 2020-12-07 09:59:00 [facility] BASIC METABOLIC PANEL 2020-12-07 02:15:00 [facility] (NA, K, CL, CO2, GLUCOSE, Medica l Branch BUN, CREATININE, CA) MAGNESIUM 2020-12-06 15:50:00 JoseNick [facility] BASIC METABOLIC PANEL 2020-12-06 15:50:00 [facility] (NA, K, CL, CO2, GLUCOSE, Medica l Branch BUN, CREATININE, CA) CBC WITH DIFF 2020-12-06 15:50:00 Sandrita [facility] MAGNESIUM 2020-12-05 22:29:00 [facility] BASIC METABOLIC PANEL 2020-12-05 22:29:00 Lisandra Eagle [facility] (NA, K, CL, CO2, GLUCOSE, Medica l Branch BUN, CREATININE, CA) CT HEAD WO CONTRAST 2020-12-05 20:11:36 Lisandra Eagle [facility] POCT GLUCOSE(AGE >30DAYS) 2020-12-05 19:44:00 Lisandra Eagle [facility] POCT TEST 2020-12-05 18:53:00 Lisandra Eagle [facility] URINE DRUG (IMMUNOASSAY) 2020-12-05 18:49:00 Lisandra Eagle [facility] - COMPREHENSIVE DRUG Medical [facility] SCREEN URINALYSIS 2020-12-05 18:49:00 Lisandra Eagle [facility] URINE CULTURE 2020-12-05 18:49:00 Lisandra Eagle [facility] EXTRA TUBE LT. BLUE 2020-12-05 18:49:00 Lisandra Eagle [facility] XR CHEST 1 VW 2020-12-05 18:44:56 Lisandra Eagle [facility] COVID-19 (ID NOW RAPID 2020-12-05 18:39:00 Lisandra Eagle [facility] TESTING) [facility] [place] LAB ONLY COVID 2020-12-05 18:39:00 Lisandra Eagle [facility] INTERPRETATION [facility] BLOOD CULTURE SCREEN 2020-12-05 18:35:[address] [facility] 2020-12-05 18:35:00 Lisandra Eagle [facility] MAGNESIUM 2020-12-05 18:35:00 Lisandra Eagle [facility] TROPONIN I 2020-12-05 18:35:00 Lisandra Eagle [facility] THYROID STIMULATING 2020-12-05 18:35:00 Lisandra Eagle [facility] HORMONE [facility] COMP. METABOLIC PANEL 2020-12-05 18:35:00 Lisandra Eagle [facility] ([id number]) [facility] CBC WITH DIFF 2020-12-05 18:35:00 Lisandra Eagle [facility] LACTIC ACID WHOLE BLOOD 2020-12-05 18:34:00 Lisandra Eagle Uni [facility] AC PANEL 20 + LACTIC ACID 2020-12-05 18:34:00 [facility]OUTINE & RHYTHM 2020-12-05 18:24:21 Lisandra [facility] 2020-09-09 05:01:00 Doctor Unassigned, [facility] Name [facility] CBC WITH DIFF 2020-08-09 17:14:00 [facility] 2020-08-09 17:14:00 Luisa, [facility] RHEUMATOID FACTOR 2020-08-09 17:14:00 [facility] C-REACTIVE PROTEIN 2020-08-09 [facility]:14[facility]. MET[facility]OLIC PANEL 2020-08-09 17:14:00 Leigh Moran [facility] ([id number]) [facility] SEDIMENTATION RATE 2020-08-09 17:14:00 Luisa, [facility] ANTI-SSB(LA) 2020-08-09 17:14:00 [facility] ADC OR LEXX ONLY - RPR 2020-08-09 17:14:00 [facility]/2 [facility]-AB WITH REFLEX 2020-08-09 17:14:00 Leigh Moran Un [facility] ASSIGNMENT OF BENEFITS 2020-08-09 16:41:17 Doctor Unassigned, Un [facility] BODY FLUID DIRECT COUNT 2020-07-14 20:10:00 Hansel Kennedy [facility] CSF CULTURE 2020-07-14 20:10:00 Hansel Kennedy [facility] CEREBROSPINAL FLUID 2020-07-14 20:09:00 Hansel Kennedy [facility] PROTEIN [facility] CEREBROSPINAL FLUID 2020-07-14 20:09:00 Hansel Kennedy [facility] GLUCOSE [facility] EXTRA TUBE CSF 2020-07-14 20:09:00 Hansel Kennedy [facility] MENINGITIS/ENCEPHALITIS 2020-07-14 20:09:00 Hansel Kennedy [facility] PANEL BY PCR [facility] POCT GLUCOSE (AUTOMATED) 2020-07-14 14:55:00 Christina Roque [facility] MAGNESIUM 2020-07-14 13:11:00 Hansel Kennedy [facility] PHOSPHORUS 2020-07-14 13:10:00 [facility] XR CHEST 1 VW 2020-07-14 13:06:38 Hansel Kennedy [facility] URINALYSIS 2020-07-14 09:32:00 Bhaskar Reyna [facility] COVID-19 (ID NOW RAPID 2020-07-14 09:25:00 Axel Bhaskar [facility] TESTING) [facility] C-REACTIVE PROTEIN 2020-07-14 01:10:00 Bhaskar Reyna [facility] HEPATIC FUNCTION PANEL 2020-07-14 01:10:00 Axel Bhaskar [facility] ([id number]) (ALB,T.PRO,[facility] T,BU/BC,ALT,AST,ALK PHOS) BASIC METABOLIC PANEL 2020-07-14 01:10:00 Bhaskar Reyna [facility] (NA, K, CL, CO2, GLUCOSE, Medica l Branch BUN, CREATININE, CA) SEDIMENTATION RATE 2020-07-14 01:10:00 Bhaskar Reyna [facility] CBC WITH DIFF 2020-07-14 01:10:00 Bhaskar Reyna [facility] AUTHORIZATION FOR RELEASE 2020-07-08 05:01:00 Doctor Unassigned, [facility] REFERRAL- 2020-07-07 05:01:00 Doctor Unassigned, [facility] REQUEST/RESPONSE [facility] CBC WITH DIFF 2020-07-07 03:16:00 Lisandra Ealge [facility] NOTICE OF PRIVACY 2020-07-06 23:35:30 Doctor [place], [facility] PRACTICES [facility] [place] CONSENT/REFUSAL FOR 2020-07-06 23:35:07 Doctor [place], [facility] DIAGNOSIS AND TREATMENT [facility] [place] CT HEAD WO CONTRAST 2020-07-04 19:42:39 Lety Noriega [facility] LIPASE 2020-07-04 18:56:00 Lety Noriega [facility] COMP. METABOLIC PANEL 2020-07-04 18:56:00 Lety Noriega [facility] ([id number]) [facility] CBC WITH DIFF 2020-07-04 18:56:00 Lety Noriega [facility] URINALYSIS 2020-07-04 18:56:00 Leyt Noriega [facility] CONSENT/REFUSAL FOR 2020-07-04 17:04:54 Doctor Georgia [facility] DIAGNOSIS [facility] TREATMENT [facility] 2020-06-27 16:14:00 Michael [facility] MR BRAIN WO CONTRAST 2020-06-27 10:20:11 Jose Cintron [facility] COVID-19 (ID NOW RAPID 2020-06-26 22:32:00 Sabrina Ruby [facility] TESTING) [facility] CT ANGIOGRAM HEAD 2020-06-26 22:14:19 Sabrina Ruby [facility] CT ANGIOGRAM NECK 2020-06-26 22:14:19 Sabrina Ruby [facility] CT HEAD WO CONTRAST 2020-06-26 22:02:20 Sabrina Ruby [facility] URINALYSIS 2020-06-26 21:28:00 Sabrina Ruby [facility] XR CHEST 1 VW 2020-06-26 20:27:04 Sabrina Ruby [facility] TROPONIN I 2020-06-26 20:24:00 Sabrina Ruby [facility] HEPATIC FUNCTION PANEL 2020-06-26 20:24:00 [facility] ([id number]) (ALB,T.PRO,BILI Medical Branch T,BU/BC,ALT,AST,ALK PHOS) BASIC METABOLIC PANEL 2020-06-26 20:24:00 [facility] (NA, K, CL, CO2, GLUCOSE, Medica l Branch BUN, CREATININE, CA) SEDIMENTATION RATE 2020-06-26 20:24:00 [facility] CBC WITH DIFF 2020-06-26 20:24:00 [facility] HB ECG ROUTINE & RHYTHM 2020-06-26 20:16:57 [facility] CONSENT/REFUSAL FOR 2020-06-26 20:02:52 Doctor Unassigned, [facility] DIAGNOSIS AND TREATMENT [facility] COMP. METABOLIC PANEL 2020-06-01 09:54:00 Zenaida Rodrigez [facility] ([id number]) [facility] BASIC METABOLIC PANEL 2020-05-31 14:36:00 Cade Hernadez [facility] (NA, K, CL, CO2, GLUCOSE, Medica l Branch BUN, CREATININE, CA) CBC WITH DIFF 2020-05-31 12:26:00 Ad Remy [facility] CT ABDOMEN PELVIS W WO 2020-05-30 20:49:43 Dash Guerrero [facility] BLOOD CULTURE SCREEN 2020-05-30 20:16:00 Dash Guerrero [facility] LACTIC ACID WHOLE BLOOD 2020-05-30 20:15:00 Dash Guerrero [facility] URINALYSIS 2020-05-30 20:14:00 Dash Guerrero [facility] HEPATIC FUNCTION PANEL 2020-05-30 20:13:00 Dash Guerrero [facility] ([id number]) ([facility] T,BU/BC,ALT,AST,ALK PHOS) BASIC METABOLIC PANEL 2020-05-30 20:13:00 Dash Guerrero [facility] (NA, K, CL, CO2, GLUCOSE, Medica l Branch BUN, CREATININE, CA) CBC WITH DIFF 2020-05-30 20:13:00 Dash Guerrero [facility] PROTHROMBIN TIME / INR 2020-05-30 20:13:00 Dash Guerrero [facility] ACTIVATED PARTIAL 2020-05-30 20:13:00 Dash Guerrero [facility] THRMPLAS AMAN [facility] Branch COVID-19 (ID NOW RAPID 2020-05-30 20:13:00 Dash Guerrero [facility] TESTING) Medical Branch LAB ONLY COVID 2020-05-30 20:13:00 Dash Guerrero [facility] INTERPRETATION [facility] BLOOD CULTURE SCREEN 2020-05-30 20:09:00 Dash Guerrero [facility] CONSENT/REFUSAL FOR 2020-05-30 19:22:16 Doctor Unassigned, [facility] DIAGNOSIS AND TREATMENT [facility] [place] URINALYSIS 2020-05-27 00:16:00 Umm Mares [facility] HEPATIC FUNCTION PANEL 2020-05-26 23:25:00 [facility] ([id number] (ALB,T.PRO,BILI Medical Branch T,BU/BC,ALT,AST,ALK PHOS) BASIC METABOLIC PANEL 2020-05-26 23:25:00 Umm Mares [facility] (NA, K, CL, CO2, GLUCOSE, Medica l Branch BUN, CREATININE, CA) CBC WITH DIFF 2020-05-26 23:25:00 Umm Mares [facility] CONSENT/REFUSAL FOR 2020-05-26 22:59:39 Doctor Unassigned, [facility] DIAGNOSIS AND TREATMENT [facility] [place] URINALYSIS 2020-05-13 18:34:00 Dottie Troncoso [facility] CT ABDOMEN PELVIS W 2020-05-13 17:26:18 Dottie Troncoso [facility] CONTRAST Medical Branch LIPASE 2020-05-13 16:47:00 Dottie Troncoso [facility] HEPATIC FUNCTION PANEL 2020-05-13 16:47:00 Dottie Troncoso [facility] ([id number]) (ALB,T.PRO,BILI Medical Branch T,BU/BC,ALT,AST,ALK PHOS) BASIC METABOLIC PANEL 2020-05-13 16:47:00 Dottie Troncoso [facility] (NA, K, CL, CO2, GLUCOSE, Medica l Branch BUN, CREATININE, CA) CBC WITH DIFF 2020-05-13 16:47:00 Dottie Troncoso [facility] NOTICE OF PRIVACY 2020-05-13 16:27:55 Doctor [place], [facility] [place] CONSENT/REFUSAL FOR 2020-05-13 16:23:10 Doctor Georgia, [facility] DIAGNOSIS AND TREATMENT [facility] [place] EXTERNAL PROVIDER RECORDS 2019-12-10 05:01:00 Doctor [place], [facility] Name [facility] [place] US ABDOMEN LIMITED 2019-12-08 18:04:34 Lesley Bee [facility] XR CHEST 1 VW 2019-12-08 17:33:32 Lesley Bee [facility] CT ABDOMEN PELVIS WO 2019-12-08 16:24:35 Lesley Bee [facility] CONTRAST [facility] COMP. METABOLIC PANEL 2019-12-08 16:15:00 Lesley Bee [facility] ([id number]) Medical Branch CBC WITH DIFF 2019-12-08 16:15:00 Lesley Bee [facility] URINALYSIS 2019-12-08 16:13:00 Lesley Bee [facility] POCT TEST 2019-12-08 16:12:00 Lesley Bee [facility] NOTICE OF PRIVACY 2019-12-08 15:46:34 Doctor [place], [facility] Name [facility] [place] CONSENT/REFUSAL FOR 2019-12-08 15:46:19 Doctor Georgia, [facility] DIAGNOSIS AND TREATMENT [facility] POCT URINALYSIS AUTO 2019-12-08 15:09:00 Abhijit Galvin [facility] PHYSICIAN CERTIFICATION 2019-09-29 05:01:00 Doctor Georgia, [facility] STATEMENT [facility] AGREEMENTS AUTHORIZATIONS 2019-03-28 06:01:00 Doctor Unassigned, [facility] AND IRREVOCABLE [facility] ASSIGNMENTS (FORM 2001) Encounters Start End Encounter Admission Attending Care Care Encounter Source Date/Time Date/Time Type Type Clinicians Facility Department ID 2020-12-12 Emergency [facility] [id number] Univers 22:28:34 [facility] 2020-12-12 Emergency [facility] [id number] Univers 21:17:57 [facility] 2020-12-12 Emergency [facility] [id number] Univers 20:44:10 [facility] 2020-12-12 Emergency [facility] [id number] Univers 19:18:03 [facility] 2020-12-12 Emergency [facility] [id number] Univers 13:38:38 [facility] 2020-12-12 Emergency [facility] [id number] Univers 12:59:09 [facility] 2020-12-12 Emergency [facility] [id number] Univers 10:04:40 [facility] 2020-12-11 Emergency [facility] [id number] Univers 01:01:21 [facility] 2020-12-23 2020-12-23 Outpatient R [facility] [id number] Univers 00:00:00 00:00:00 [facility] 2020-12-14 2020-12-14 Transition FILEMON Redman [id number] Univers 00:00:00 00:00:00 of Care Josselin LEWIS [id number] i [id number] [id number] [id number] Branch 2020-12-05 2020-12-12 Inpatient X SANDRITA TXYAW CHOLO [id number] Univers 13:25:00 15:45:00 AD [facility] 2020-12-05 2020-12-12 [facility] Shagufta Reynajulianne [facility] [id number] Univers 13:25:00 15:45:00 Encounter Ad Remy [id number] ity [facility] [id number] [id number] [address] 2020-11-01 2020-11-01 Refill Lavon [facility] 1.2.840.114 [id number] Univers 00:00:00 00:00:00 [facility] 350.1.13.10 i ty of [place] Quan Ramirez 4.2.7.2.686 [place] Camilo Baez [phone] [address] Office Building 2020-10-12 2020-10-12 Refill Castillo [facility] 1.2.840.114 [id number] Univers 00:00:00 00:00:00 Johnson Steen 350.1.13.10 it[place] [facility] [phone] [place] 038772 [facility] 2020-10-07 2020-10-07 Telecommunication Equipment Repairer Anni, [facility] Lab Main [facility] 1.2.8 40.114 [id number] Univers 10:29:15 10:44:15 Visit Anish Carrera 350.1.13.10 it[place] of [place] Profess[place] [phone] [address] 2020-10-07 2020-10-07 Outpatient R [facility] [id number] Univers 10:30:00 10:30:00 [id number] [facility] 2020-10-07 2020-10-07 Outpatient R [facility] [id number] Univers 10:30:00 10:30:00 [facility] 2020-09-15 2020-09-15 Outpatient R [facility] [id number] -[id number] Univers 10:00:00 10:00:00 [id number] [facility] 2020-09-10 2020-09-10 Refill Lavon [facility] 1.2.840.114 [id number] Univers 00:00:00 00:00:00 [facility] 350.1.13.10 i ty of [place] Quan [place] 4.2.7.2.686 [place] Camilo Baez [phone] [address] Office Building 2020-09-09 2020-09-09 Orders Doctor CIPRIANO 1.2.840.114 [id number] Univers 00:00:00 00:00:00 Only Unassigned, KATIE 350.1.13.10 ity of [place] HOSPITAL 4.2.7.2.[phone] [facility] [address] 2020-09-06 2020-09-06 Telephone CIPRIANO Machado 1.2.544.710 [id number] Univers 00:00:00 00:00:00 Bailey Mccullough KATIE 350.1.13.10 i ty of HOSPITAL 4.2.7.2.686 [place] [phone] [address] 2020-08-13 2020-08-13 Refill Lavon [facility] 1.2.840.114 [id number] Univers 00:00:00 00:00:00 [facility] 350.1.13.10 i ty of [place] Glass [place] 4.2.7.2.686 T [facility] [phone] [address] Office Building 2020-08-09 2020-08-09 Outpatient R [facility] [id number] -[id number] Univers 12:00:00 12:00:00 [id number] [facility] 2020-08-09 2020-08-09 Outpatient R DEBI [facility] [id number] Univers 12:00:00 12:00:00 ANISH mccall [facility] 2020-08-09 2020-08-09 Telecommunication Equipment Repairer Anni, [place] Lab Main [facility] 1.2.8 40.114 [id number] Univers 11:42:15 11:57:15 Visit Anish Carrera 350.1.13.10 it[place] of [place].7.2.[place] esselizabeth [phone] Wy dical [facility] [address] Building 2020-08-09 2020-08-09 Orders Doctor CIPRIANO 1.2.840.114 [id number] Univers 00:00:00 00:00:00 Only Unassigned, KATIE 350.1.13.10 it[place] HOSPITAL 4.2.7.2.[phone] [facility] 009 [place] 2020-07-13 2020-07-14 Emergency Aufderheide, Shi Melvin TRAUMA 1.2.840.114 [id number] Univers 15:14:00 19:27:00 Jude Christina MANJIT 350.1.13.10 ity [place].[address] [place] [phone] [facility] [address] 2020-07-13 2020-07-13 Office Castillo [facility] 1.2.840.114 [id number] [facility] 09:44:58 11:19:02 Visit Johnson Steen 350.1.13.10 it[place] of [place].7.2.[place] [phone] [place] 038772 [facility] 2020-07-13 2020-07-13 Outpatient JOHNSON FISHER [facility] [id number] Univers 09:40:00 09:40:00 JOHNSON FISHER [id number] ity of [facility] 2020-07-13 2020-07-13 Outpatient R JOHNSON FISHER [facility] [id number] Univers 09:40:00 09:40:00 JOHNSON FISHER ity [facility] 2020-07-13 2020-07-13 Letter CIPRIANO Hernandez 1.2.840.114 [id number] Univers 00:00:00 00:00:00 (Out) Fercho WILSON 350.1.13.10 ity of HOSPITAL 4.2.7.2.[phone] [facility] [address] 2020-07-08 2020-07-08 Orders Doctor COTA 1.2.840.114 [id number] Univers 00:00:00 00:00:00 Only UnassignedKATIE 350.1.13.10 it[place] HOSPITAL 4.2.7.2.[phone] [facility] [address] 2020-07-07 2020-07-07 Orders Doctor COTA 1.2.840.114 [id number] Univers 00:00:00 00:00:00 Only UnassignedKATIE 350.1.13.10 it[place] HOSPITAL 4.2.7.2.[phone] [facility] [address] 2020-07-07 2020-07-07 Telephone [facility] 1.2.776.939 [id number] Univers 00:00:00 00:00:00 Angy PRIMARY 350.1.13.10 it y of [facility] 4.2.7.2.[place] [phone] Wy dical [address] 2020-07-06 2020-07-06 Emergency [facility] 1.2.346.607 [id number] Univers 18:48:00 23:59:00 Lisandra Steen 350.1.13.10 it[place] of [place]2.7.2.686 [place] [phone] [facility] 084 [address] 2020-07-04 2020-07-04 Emergency [facility] 1.2.840.114 [id number] Univers 12:16:00 18:32:00 Lety Steen 350.1.13.10 [place].7.2.[place] [phone] [facility] 0[address] 2020-06-26 2020-06-28 Emergency Sabrina Ruby 1.2.840 .114 [id number] Univers 15:08:00 18:15:00 Caio Hernandez 350.1.13.10 ity of [facility] 4.2.7.2.[phone] [facility] 0[address] 2020-06-28 2020-06-28 Telephone [facility] 1.2.840.114 [id number] Univers 00:00:00 00:00:00 Johnson Steen 350.1.13.10 it[place] of [place]2.7.2.[place] [phone] Wy dical nal 0[address] [facility] 2020-06-22 2020-06-22 Outpatient STLMLC STLMLC [id number] [facility] 00:00:00 00:00:00 Beth reilly Outpati [facility] Clinics 2020-05-30 2020-06-02 Emergency Dash Guerrero [facility] 1.2.840. 114 [id number] Univers 14:32:00 11:50:00 Ad Remy 350.1.13.10 ity of DavidleandroCade dominique Jonh 4.2.7.2.686 [facility] [phone] [place] [address] Branch 2020-05-31 2020-05-31 Outpatient MERVIN [facility] [id number]-20 Univers 09:45:00 09:45:00 [facility] [id number] ity of [facility] 2020-05-31 2020-05-31 Outpatient R MERVINFORMERLY [facility] [id number] Univers 09:45:00 09:45:00 [facility] ity [facility] 2020-05-26 2020-05-26 Emergency [facility] 1.2.734.034 [id number] Univers 18:10:00 21:41:00 Umm Steen 350.1.13.10 ity of [place] 4.2.7.2.686 [facility] [phone] [place] [address] Branch 2020-05-26 2020-05-26 Orders Doctor CIPRIANO 1.2.840.114 [id number] Univers 00:00:00 00:00:00 Only Unassigned, KATIE 350.1.13.10 it[place] of [place] [facility] 4.2.7.2.686 [place] [phone] [place] [address] Branch 2020-05-13 2020-05-13 Emergency [facility] 1.2.840.114 [id number] Univers 11:30:00 17:34:00 Dottie Steen 350.1.13.10 ity of [place] 4.2.7.2.686 [facility] [phone] [facility] 084 [address] 2020-05-13 2020-05-13 Urgent Provider, [facility] 1.2.840.114 [id number] Univers 10:10:06 11:10:27 Care Sarah Orantes [facility] 350.1.13.10 ity of [place] 4.2.7.2.686 [place] Professio [phone] [facility] 044 [place] Office Building One 2020-05-13 2020-05-13 Outpatient R [facility] [id number] -[id number] Univers 11:00:00 11:00:00 [id number] ity [facility] 2020-05-13 2020-05-13 Outpatient R ROLANDA [facility] [id number] Univers 11:00:00 11:00:00 SARAH ity [facility] 2020-05-13 2020-05-13 Orders Doctor COTA 1.2.840.114 [id number] Univers 00:00:00 00:00:00 Only Unassigned, KATIE 350.1.13.[address] [facility] 4.2.7.2.686 [place] [phone] [address] 2020-04-19 2020-04-19 [facility] 1.2.840.114 [id number] Univers 00:00:00 00:00:00 Johnson Steen 350.1.13.10 it[place].2.[place] [phone] [facility] [address] [place] [address] 2020-04-09 2020-04-09 Refill [facility] 1.2.840.114 [id number] Univers 00:00:00 00:00:00 Johnson Steen 350.1.13.10 it[place] of [place].7.2.[place] [phone] [facility] [address] [place] [address] 2020-03-23 2020-03-23 Office [facility] 1.2.840.114 [id number] Univers 09:29:15 10:11:33 Visit Johnson Steen 350.1.13.10 it[place] of [place]2.7.2.[place] [phone] Wy dicca nal [address] [place] [address] 2020-03-23 2020-03-23 Outpatient R JOHNSON FISHER [facility] [id number] Univers 09:20:00 09:20:00 JOHNSON FISHER [id number] [facility] 2020-03-23 2020-03-23 Outpatient R JOHNSON FISHER [facility] [id number] Univers 09:20:00 09:20:00 JOHNSON FISHER ity [facility] 2020-03-15 2020-03-15 Refill [facility] 1.2.840.114 [id number] Univers 00:00:00 00:00:00 Johnson Herron Enio 350.1.13.10 it[place] of [place].7.2.[place] [phone] [facility] 092 [facility] 2019-12-10 2019-12-10 Orders Doctor CIPRIANO 1.2.840.114 [id number] Univers 00:00:00 00:00:00 Only Unassigned, KATIE 350.1.13.10 it[place] of [place] [facility] 4.2.7.2.[phone] [facility] 009 [place] 2019-12-09 2019-12-09 [facility] 1.2.840.114 [id number] Univers 00:00:00 00:00:00 Management Kari Steen 350.1.13.10 it[place].2.[place] [phone] [facility] 204 [facility] 2019-12-08 2019-12-08 Emergency [facility] 1.2.453.512 [id number] Univers 11:01:00 14:17:00 Lesley Steen 350.1.13.10 i ty [place].7.2.[place] [phone] [facility] 084 [place] 2019-12-08 2019-12-08 Office Juan [facility] 1.2.840.114 [id number] Univers 09:53:04 10:44:29 Visit Abhijit Steen 350.1.13.10 i ty of [place].7.2.[place] [phone] [facility] 204 [facility] 2019-12-08 2019-12-08 Outpatient R JUAN M [facility] [id number] Q-20 Univers 10:15:00 10:15:00 ABHIJIT [id number] ity of [facility] 2019-12-08 2019-12-08 Outpatient R JUAN M, [facility] [id number] Univers 10:15:00 10:15:00 [facility] ity of [facility] 2019-12-08 2019-12-08 Orders Doctor CIPRIANO 1.2.840.114 [id number] Univers 00:00:00 00:00:00 Only Unassigned, KATIE 350.1.13.10 [facility] 4.2.7.2.686 [place] [phone] [address] 2019-12-06 2019-12-06 [facility] 1.2.840.114 [id number] Univers 00:00:00 00:00:00 Johnson Steen 350.1.13.10 [place].2.[place] [phone] [address] 2019-10-17 2019-10-17 [facility] 1.2.840.114 [id number] Univers 00:00:00 00:00:00 Johnson Steen 350.1.13.10 [place].2.[place] [phone] [address] 2019-09-29 2019-09-29 Orders Doctor COTA 1.2.840.114 [id number] Univers 00:00:00 00:00:00 Only Unassigned, KATIE 350.1.13.[address] [facility] 4.2.7.2.686 [place] [phone] [address] 2019-09-23 2019-09-23 [facility] 1.2.840.114 [id number] Univers 00:00:00 00:00:00 Johnson Steen 350.1.13.10 [place].7.2.[place] [phone] [address] 2019-08-07 2019-08-07 [facility] Castillo, [facility] 1.2.840.114 [id number] Univers 00:00:00 00:00:00 Johnson Herron Enio 350.1.13.10 it[place] of [place].2.[place] [phone] Wy dicca nal 092 [facility] 2019-05-21 2019-05-21 [place] [facility] 1.2.840.114 [id number] [facility] 00:00:00 00:00:00 Johnson Gopal Enio 350.1.13.10 [place].2.[place] [phone] Wy dicca nal 092 [facility] 2019-04-24 2019-04-24 [place] [facility] 1.2.840.114 [id number] [facility] 00:00:00 00:00:00 Johnson Herron Enio 350.1.13.10 [place].7.2.[place] [phone] Wy dicca nal [address] [place] [address] 2019-04-17 2019-04-17 [place] Castillo, [facility] 1.2.840.114 [id number] [facility] 00:00:00 00:00:00 Johnson Herron [place] 350.1.13.10 [place].2.[place] [phone] Wy dicca nal 2 [facility] 2019-04-07 2019-04-07 [place] [facility] 1.2.840.114 [id number] Univers 00:00:00 00:00:00 Johnson Steen 350.1.13.10 it[place].2.[place] [phone] Wy dicca nal [address] [place] [address] 2019-03-28 2019-03-28 Telecommunication Equipment Repairer 2, Adc Lab [facility] 1.2.840.114 [id number] Univers 11:02:20 11:17:20 Visit Johnson Fisher 350.1.13 .10 it[place] of [place] 4[place]2.7.2.[place] [phone] [facility] 353 [facility] 2019-03-28 2019-03-28 Office Castillo [facility] 1.2.840.114 [id number] Univers 09:56:36 10:59:16 Visit Johnson Steen 350.1.13.10 ity of [place] 4.2.7.2.686 Cee raygoza arnaldo [phone] Wy dical nal [address] Building 2019-03-28 2019-03-28 Orders Doctor CIPRIANO 1.2.840.114 [id number] Univers 00:00:00 00:00:00 Only Unassigned, KATIE 350.1.13.10 it[place] of [place] [facility] 4.2.7.2.686 [place] [phone] [place] [address] Branch 2018-11-05 2018-11-05 Emergency E [address] 11:03:00 11:03:00 l Singh [facility] 2017-08-24 2017-08-24 Outpatient [place] [id number] 08:45:00 08:45:00 [facility] 2017-08-01 2017-08-01 Outpatient Trish [place] [address] 10:15:00 10:15:00 [facility] Results Test Description Test Time Test Comments Results Result Comments Source BASIC METABOLIC PANEL (NA, K, CL, CO2, GLUCOSE, BUN, 2020-11 11:05:50 CREATININE, CA) Test Item Value Reference Range Interpretation Comme nts NA (test code = 2439080464) 133 mmol/L 135-145 L K (test code = 4778757249) 5.0 mmol/L 3.5-5.0 CL (test code = 0061790618) 105 mmol/L 98-108 CO2 TOTAL (test code = 2135058598) 24 mmol/L 23-31 AGAP (test code = 7479473307) 2-16 BUN (test code = 0835644654) 9 mg/dL 7-23 GLUCOSE (test code = 4604029645) 93 mg/dL 70-110 CREATININE (test code = 0.57 mg/dL 0.50-1.04 8612851039) CALCIUM (test code = 8019022187) 9.8 mg/dL 8.6-10.6 eGFR (test code = 1794728709) mL/min/1.73m2 ANTHONY (test code = ANTHONY) Association of Glomerular Filtration Rate (GFR) and Staging of Kidney Disease* + +-------- + ------+| GFR (mL/min/1.73 m2) ?| With Kidney Damage ?| ?Without Kidney Damage+ +-- + +| ?>90 ?| ?Stage one ?| ? Normal ?+ +------- + -------+| ?60-89 ?| ?Stage two ?| ? Decreased GFR ? + +-------- + ------+| ?30-59 ?| ?Stage three ?| ? Stage three ? + +-------- + ------+| ?15-29 ?| ?Stage four ? | ? Stage four ?+ +------- + -------+| ?<15 (or dialysis) ? ?| ?Stage five ? | ? Stage five ?+ +------- + -------+ *Each stage assumes the associated GFR level has been in effect for at least three months. ?Stages 1 to 5, with or without kidney disease, indicate chronic kidney disease. Notes: Determination of stages one and two (with eGFR >59mL/min/1.73 m2) requires estimation of kidney damage for at least three months as defined by structural or functional abnormalities of the kidney, manifested by either:Pathological abnormalities or Markers of kidney damage (including abnormalities in the composition of the blood or urine or abnormalities in imaging tests). Lab Interpretation (test code = Abnormal 61464-8) [facility] 11[facility]05:50 Test Item Value Reference Range Interpretation Comments MAGNESIUM (test code = 9063573691) 2.3 mg/dL 1.7-2.4 Lab Interpretation (test code = Normal 33717-6) [facility]2021-10-31 11:05:30 Test Item Value Reference Range Interpretation Comments PHOSPHORUS (test code = 7488573127) 4.1 mg/dL 2.5-5.0 Lab Interpretation (test code = Normal 88897-3) [facility] HospitalOSMOLALITY, SERUM OR [id number] 17:26:02 Test Item Value Reference Range Interpretation Comments OSMOLALITY (test code = See_Comment [Au tomated message] 4057606003) The system [employer] generated this result transmitted ref erence range: 278 - 30 5 mOsm/kg. The re ference range was not u sed to interpret this result as normal/abnor mal. Lab Interpretation (test Normal code = 68200-5) [facility] HospitalVancomycin Random [id number] 15:46:31 Test Item Value Reference Range Interpretation Comments VANCO RANDOM (test code = 8.9 ug/mL 2590880595) [facility] MET[facility]OLIC PAN[facility] (NA, K, CL, CO2, GLUCOSE, BUN, CREATININE, CA)2020-12-11 10:02:40 Test Item Value Reference Range Interpretation Comments NA (test code = 135 mmol/L 135-145 9582189015) K (test code = 4.7 mmol/L 3.5-5.0 1696070270) CL (test code = 107 mmol/L 98-108 6683958008) CO2 TOTAL (test code 24 mmol/L 23-31 = 3403529763) AGAP (test code = 2-16 7252645268) BUN (test code = 9 mg/dL 7-23 5993242045) GLUCOSE (test code = 98 mg/dL 70-110 2018153967) CREATININE (test code 0.62 mg/dL 0.50-1.04 = 9228051931) CALCIUM (test code = 9.5 mg/dL 8.6-10.6 5277805140) eGFR (test code = mL/min/1.73m2 7121675761) ANTHONY (test code = ANTHONY) Association of Glomerular Filtration Rate (GFR) and Staging of Kidney Disease* + + +- +| GFR (mL/min/1.73 m2) ?| With Kidney Damage ?| ?Without Kidney Damage+ ------+ ----+ ------+| ?>90 ?| ?Stage one ?| ? Normal ?+ -+ + -+| ?60-89 ?| ?Stage two ?| ? Decreased GFR ? + + +- +| ?30-59 ?| ?Stage three ?| ? Stage three ? + + +- +| ?15-29 ?| ?Stage four ? | ? Stage four ?+ -+ + -+| ?<15 (or dialysis) ? ?| ?Stage five ? | ? Stage five ?+ -+ + -+ *Each stage assumes the associated GFR level has been in effect for at least three months. ?Stages 1 to 5, with or without kidney disease, indicate chronic kidney disease. Notes: Determination of stages one and two (with eGFR >59mL/min/1.73 m2) requires estimation of kidney damage for at least three months as defined by structural or functional abnormalities of the kidney, manifested by either:Pathological abnormalities or Markers of kidney damage (including abnormalities in the composition of the blood or urine or abnormalities in imaging tests). [facility] WITH [id number] 09:45:31 Test Item Value Reference Range Interpretation Comments WBC (test code = See_Comment [Automated 6690-2) message] The sy stem which generated this result transmitted reference range : 4.30 - 11.10 10*3/?L. The reference range was not used to interpret this result as normal/abnormal . RBC (test code = See_Comment L [Automated 789-8) message] The sy stem which generated this result transmitted reference range : 3.93 - 5.25 10*6/?L. The reference range was not used to interpret this result as normal/abnormal . HGB (test code = 9.0 g/dL 11.6-15.0 L 718-7) HCT (test code = 28.1 % 35.7-45.2 L 4544-3) MCV (test code = 97.6 fL 80.6-95.5 H 787-2) MCH (test code = 31.3 pg 25.9-32.8 785-6) MCHC (test code = 32.0 g/dL 31.6-35.1 786-4) RDW-SD (test code = 55.5 fL 39.0-49.9 H 57557-1) RDW-CV (test code = 15.6 % 12.0-15.5 H 788-0) PLT (test code = See_Comment [Automated 777-3) message] The sy stem which generated this result transmitted reference range : 166 - 358 10*3/ ?L. The reference r miky was not used to interpret this result as normal/abnormal . MPV (test code = 11.5 fL 9.5-12.9 60311-7) NRBC/100 WBC (test See_Comment [Automat ed code = 2342355472) message] The system which generated this result transmitted reference range : 0.0 - 10.0 /100 WBCs. The refer ence range was not u sed to interpret th is result as normal/abnormal . NRBC x10^3 (test code See_Comment [Auto mated = 5520033928) message] The s ystem which generated this result transmitted reference range : 10*3/?L. The reference range was not used to interpret this result as normal/abnormal . GRAN MAT (NEUT) % 44.2 % (test code = 770-8) IMM GRAN % (test code 5.40 % = 8338642764) LYMPH % (test code = 35.6 % 736-9) MONO % (test code = 14.1 % 5905-5) EOS % (test code = 0.3 % 713-8) BASO % (test code = 0.4 % 706-2) GRAN MAT x10^3(ANC) 2.99 10*3/uL 1.88-7.09 (test code = 7870656495) IMM GRAN x10^3 (test 0.37 10*3/uL 0.00-0.06 H code = 9254154645) LYMPH x10^3 (test code 2.42 10*3/uL 1.32-3.29 = 731-0) MONO x10^3 (test code 0.96 10*3/uL 0.33-0.92 H = 742-7) EOS x10^3 (test code = <0.03 0.03-0.39 L 711-2) BASO x10^3 (test code 0.03 10*3/uL 0.01-0.07 = 704-7) Lab Interpretation Abnormal (test code = 03861-6) [facility] 09[facility]37:24 Test Item Value Reference Range Interpretation Comments MAGNESIUM (test code = 8177780262) 2.3 mg/dL 1.7-2.4 Lab Interpretation (test code = Normal 81032-3) [facility] 09:37:04 Test Item Value Reference Range Interpretation Comments PHOSPHORUS (test code = 3307450847) 2.8 mg/dL 2.5-5.0 Lab Interpretation (test code = Normal 07904-5) [facility] [id number] 09:36:44 Test Item Value Reference Range Interpretation Comments URIC ACID (test code = 4517504621) 3.2 mg/dL 2.9-6.0 Lab Interpretation (test code = Normal 70638-7) [facility] Met[facility] Panel (NA, K, CL, CO2, GLUCOSE, BUN, CREATININE, CA)2020-12-10 20:08:36 Test Item Value Reference Range Interpretation Comments NA (test code = 126 mmol/L 135-145 L 4172901701) K (test code = 3.7 mmol/L 3.5-5.0 5243674216) CL (test code = 102 mmol/L 98-108 7059764654) CO2 TOTAL (test code = 21 mmol/L 23-31 L 3047346280) AGAP (test code = 2-16 4019618642) BUN (test code = 9 mg/dL 7-23 2209346841) GLUCOSE (test code = 116 mg/dL 70-110 H 8451670806) CREATININE (test code = 0.72 mg/dL 0.50-1.04 0777706100) CALCIUM (test code = 8.9 mg/dL 8.6-10.6 7840036387) eGFR (test code = mL/min/1.73m2 8954427960) ANTHONY (test code = ANTHONY) Association of Glomerular Filtration Rate (GFR) and Staging of Kidney Disease* + --+ --+ ------+| GFR (mL/min/1.73 m2) ?| With Kidney Damage ?| ?Without Kidney Damage+ --------+ --------+ +| ?>90 ?| ?Stage one ?| ? Normal ?+ ---+ ---+ -------+| ?60-89 ?| ?Stage two ?| ? Decreased GFR ? + --+ --+ ------+| ?30-59 ?| ?Stage three ?| ? Stage three ? + --+ --+ ------+| ?15-29 ?| ?Stage four ? | ? Stage four ?+ ---+ ---+ -------+| ?<15 (or dialysis) ? ?| ?Stage five ? | ? Stage five ?+ ---+ ---+ -------+ *Each stage assumes the associated GFR level has been in effect for at least three months. ?Stages 1 to 5, with or without kidney disease, indicate chronic kidney disease. Notes: Determination of stages one and two (with eGFR >59mL/min/1.73 m2) requires estimation of kidney damage for at least three months as defined by structural or functional abnormalities of the kidney, manifested by either:Pathological abnormalities or Markers of kidney damage (including abnormalities in the composition of the blood or urine or abnormalities in imaging tests). Lab Interpretation Abnormal (test code = 42268-1) [facility] CULTURE [id number] 20:01:33 Test Item Value Reference Range Interpretation Comments Blood Culture-Aerobic No organisms No growth Previo us (test code = 77929-8) isolated prelim inary verified result was Culture In Progress on 12/05/2020 at 1802 CDTPreviou s preliminary verified result was No growth a t 24 hours on 12/06/2020 at 1501 CDTPreviou s preliminary verified result was No growth a t 48 hours on 12/07/2020 at 1501 CDTPreviou s preliminary verified result was No growth a t 72 hours on 12/08/2020 at 1501 CDT Blood No organisms No growth Previous Culture-Anaerobic isolated preliminar y (test code = 35037-1) verifi ed result was Culture In Progress on 12/05/2020 at 1802 CDTPreviou s preliminary verified result was No growth a t 24 hours on 12/06/2020 at 1501 CDTPreviou s preliminary verified result was No growth a t 48 hours on 12/07/2020 at 1501 CDTPreviou s preliminary verified result was No growth a t 72 hours on 12/08/2020 at 1501 CDT Lab Interpretation Normal (test code = 48781-3) [facility] CULTURE [id number] 20:01:33 Test Item Value Reference Range Interpretation Comments Blood Culture-Aerobic No organisms No growth Previo us (test code = 13221-8) isolated prelim inary verified result was Culture In Progress on 12/05/2020 at 1802 CDTPreviou s preliminary verified result was No growth a t 24 hours on 12/06/2020 at 1501 CDTPreviou s preliminary verified result was No growth a t 48 hours on 12/07/2020 at 1501 CDTPreviou s preliminary verified result was No growth a t 72 hours on 12/08/2020 at 1501 CDT Blood No organisms No growth Previous Culture-Anaerobic isolated preliminar y (test code = 92832-8) verifi ed result was Culture In Progress on 12/05/2020 at 1802 CDTPreviou s preliminary verified result was No growth a t 24 hours on 12/06/2020 at 1501 CDTPreviou s preliminary verified result was No growth a t 48 hours on 12/07/2020 at 1501 CDTPreviou s preliminary verified result was No growth a t 72 hours on 12/08/2020 at 1501 CDT Lab Interpretation Normal (test code = 33626-1) [facility] Test Item Value Reference Range Interpretation Comments PHOSPHORUS (test code = 5215090684) 2.5 mg/dL 2.5-5.0 Lab Interpretation (test code = Normal 16505-3) [facility] [id number] 18:49:57 Test Item Value Reference Range Interpretation Comments WBC (test code = See_Comment [Automated 1890-2) message] The sy stem which generated this result transmitted reference range : 4.30 - 11.10 10*3/?L. The reference range was not used to interpret this result as normal/abnormal . RBC (test code = See_Comment L [Automated 829-8) message] The sy stem which generated this result transmitted reference range : 3.93 - 5.25 10*6/?L. The reference range was not used to interpret this result as normal/abnormal . HGB (test code = 8.8 g/dL 11.6-15.0 L 718-7) HCT (test code = 25.2 % 35.7-45.2 L 4544-3) MCV (test code = 94.0 fL 80.6-95.5 787-2) MCH (test code = 32.8 pg 25.9-32.8 785-6) MCHC (test code = 34.9 g/dL 31.6-35.1 786-4) RDW-SD (test code = 52.4 fL 39.0-49.9 H 47971-1) RDW-CV (test code = 15.2 % 12.0-15.5 788-0) PLT (test code = See_Comment L [Automated 777-3) message] The sy stem which generated this result transmitted reference range : 166 - 358 10*3/ ?L. The reference r miky was not used to interpret this result as normal/abnormal . MPV (test code = 10.8 fL 9.5-12.9 37370-7) NRBC/100 WBC (test See_Comment [Automat ed code = 0678300270) message] The system which generated this result transmitted reference range : 0.0 - 10.0 /100 WBCs. The refer ence range was not u sed to interpret th is result as normal/abnormal . NRBC x10^3 (test code See_Comment [Auto mated = 9844622515) message] The s ystem which generated this result transmitted reference range : 10*3/?L. The reference range was not used to interpret this result as normal/abnormal . GRAN MAT (NEUT) % 47.2 % (test code = 770-8) IMM GRAN % (test code 5.80 % = 0681146130) LYMPH % (test code = 29.2 % 736-9) MONO % (test code = 17.1 % 5905-5) EOS % (test code = 0.4 % 713-8) BASO % (test code = 0.3 % 706-2) GRAN MAT x10^3(ANC) 3.14 10*3/uL 1.88-7.09 (test code = 2327005682) IMM GRAN x10^3 (test 0.39 10*3/uL 0.00-0.06 H code = 1626906465) LYMPH x10^3 (test code 1.95 10*3/uL 1.32-3.29 = 731-0) MONO x10^3 (test code 1.14 10*3/uL 0.33-0.92 H = 742-7) EOS x10^3 (test code = 0.03 10*3/uL 0.03-0.39 711-2) BASO x10^3 (test code <0.03 0.01-0.07 = 704-7) POLYCHROMASIA (test 2+ See_Comment [Automa karly code = 31119-3) message] The system which generated this result transmitted reference range : 2+. The referen ce range was not u sed to interpret th is result as normal/abnormal . BANDS (test code = Increased A 8001468924) Lab Interpretation Abnormal (test code = 77716-2) [facility] Draw random trough at [id number] 16:37:29 Test Item Value Reference Range Interpretation Comments VANCO TROUGH (test code 19.4 ug/mL 10.0-20.0 = 6684371855) ANTHONY (test code = ANTHONY) Toxic Range: ?>20 ug/mL 15-20 ug/mL is recommended for severe infection or when Vancomycin RAHEEM is greater than or equal to 2. Lab Interpretation (test Normal code = 30386-7) [facility] 11:49:21 Test Item Value Reference Range Interpretation Comments MAGNESIUM (test code = 2844008974) 2.1 mg/dL 1.7-2.4 Lab Interpretation (test code = Normal 97576-6) [facility] (NA, K, CL, CO2, GLUCOSE, BUN, CREATININE, CA)2020-12-10 11:49:05 Test Item Value Reference Range Interpretation Comments NA (test code = 129 mmol/L 135-145 L 2390239284) K (test code = 3.0 mmol/L 3.5-5.0 L 9766740828) CL (test code = 103 mmol/L 98-108 0714964161) CO2 TOTAL (test code = 25 mmol/L 23-31 2816527022) AGAP (test code = 2-16 L 5059091642) BUN (test code = 10 mg/dL 7-23 3879566794) GLUCOSE (test code = 123 mg/dL 70-110 H 1192302267) CREATININE (test code = 0.84 mg/dL 0.50-1.04 3890207034) CALCIUM (test code = 8.9 mg/dL 8.6-10.6 6595757404) eGFR (test code = mL/min/1.73m2 8921488274) ANTHONY (test code = ANTHONY) Association of Glomerular Filtration Rate (GFR) and Staging of Kidney Disease* + --+ --+ ------+| GFR (mL/min/1.73 m2) ?| With Kidney Damage ?| ?Without Kidney Damage+ --------+ --------+ +| ?>90 ?| ?Stage one ?| ? Normal ?+ ---+ ---+ -------+| ?60-89 ?| ?Stage two ?| ? Decreased GFR ? + --+ --+ ------+| ?30-59 ?| ?Stage three ?| ? Stage three ? + --+ --+ ------+| ?15-29 ?| ?Stage four ? | ? Stage four ?+ ---+ ---+ -------+| ?<15 (or dialysis) ? ?| ?Stage five ? | ? Stage five ?+ ---+ ---+ -------+ *Each stage assumes the associated GFR level has been in effect for at least three months. ?Stages 1 to 5, with or without kidney disease, indicate chronic kidney disease. Notes: Determination of stages one and two (with eGFR >59mL/min/1.73 m2) requires estimation of kidney damage for at least three months as defined by structural or functional abnormalities of the kidney, manifested by either:Pathological abnormalities or Markers of kidney damage (including abnormalities in the composition of the blood or urine or abnormalities in imaging tests). Lab Interpretation Abnormal (test code = 34130-2) [facility] 11:48:59 Test Item Value Reference Range Interpretation Comments PHOSPHORUS (test code = 1601951126) 1.0 mg/dL 2.5-5.0 L Lab Interpretation (test code = Abnormal 95087-7) [facility] (NA, K, CL, CO2, GLUCOSE, BUN, CREATININE, CA)2020-12-10 02:21:51 Test Item Value Reference Range Interpretation Comments NA (test code = 130 mmol/L 135-145 L 2519292820) K (test code = 3.6 mmol/L 3.5-5.0 4753661221) CL (test code = 106 mmol/L 98-108 1753394627) CO2 TOTAL (test code = 21 mmol/L 23-31 L 1565055926) AGAP (test code = 2-16 0494073357) BUN (test code = 9 mg/dL 7-23 4957386620) GLUCOSE (test code = 142 mg/dL 70-110 H 7236851230) CREATININE (test code = 0.59 mg/dL 0.50-1.04 7053348388) CALCIUM (test code = 8.4 mg/dL 8.6-10.6 L 4423991662) eGFR (test code = mL/min/1.73m2 0847293368) ANTHONY (test code = ANTHONY) Association of Glomerular Filtration Rate (GFR) and Staging of Kidney Disease* + --+ --+ ------+| GFR (mL/min/1.73 m2) ?| With Kidney Damage ?| ?Without Kidney Damage+ --------+ --------+ +| ?>90 ?| ?Stage one ?| ? Normal ?+ ---+ ---+ -------+| ?60-89 ?| ?Stage two ?| ? Decreased GFR ? + --+ --+ ------+| ?30-59 ?| ?Stage three ?| ? Stage three ? + --+ --+ ------+| ?15-29 ?| ?Stage four ? | ? Stage four ?+ ---+ ---+ -------+| ?<15 (or dialysis) ? ?| ?Stage five ? | ? Stage five ?+ ---+ ---+ -------+ *Each stage assumes the associated GFR level has been in effect for at least three months. ?Stages 1 to 5, with or without kidney disease, indicate chronic kidney disease. Notes: Determination of stages one and two (with eGFR >59mL/min/1.73 m2) requires estimation of kidney damage for at least three months as defined by structural or functional abnormalities of the kidney, manifested by either:Pathological abnormalities or Markers of kidney damage (including abnormalities in the composition of the blood or urine or abnormalities in imaging tests). Lab Interpretation Abnormal (test code = 22610-6) [facility] - Draw no more than 60 minutes before the 1330 dose.2020-12-09 20:29:37 Test Item Value Reference Range Interpretation Comments VANCO TROUGH (test code 20.9 ug/mL 10.0-20.0 H = 6704024656) ANTHONY (test code = ANTHONY) Toxic Range: ?>20 ug/mL 15-20 ug/mL is recommended for severe infection or when Vancomycin RAHEEM is greater than or equal to 2. Lab Interpretation (test Abnormal code = 45754-1) [facility] (NA, K, CL, CO2, GLUCOSE, BUN, CREATININE, CA)2020-12-09 11:48:35 Test Item Value Reference Range Interpretation Comments NA (test code = 129 mmol/L 135-145 L 9120957659) K (test code = 2.8 mmol/L 3.5-5.0 LL 0554892819) CL (test code = 104 mmol/L 98-108 8391033648) CO2 TOTAL (test code = 20 mmol/L 23-31 L 9266731727) AGAP (test code = 2-16 0302714505) BUN (test code = 10 mg/dL 7-23 9678252601) GLUCOSE (test code = 120 mg/dL 70-110 H 2868824239) CREATININE (test code = 0.68 mg/dL 0.50-1.04 2604685744) CALCIUM (test code = 7.9 mg/dL 8.6-10.6 L 7309076697) eGFR (test code = mL/min/1.73m2 3798239514) ANTHONY (test code = ANTHONY) Association of Glomerular Filtration Rate (GFR) and Staging of Kidney Disease* + --+ --+ ------+| GFR (mL/min/1.73 m2) ?| With Kidney Damage ?| ?Without Kidney Damage+ --------+ --------+ +| ?>90 ?| ?Stage one ?| ? Normal ?+ ---+ ---+ -------+| ?60-89 ?| ?Stage two ?| ? Decreased GFR ? + --+ --+ ------+| ?30-59 ?| ?Stage three ?| ? Stage three ? + --+ --+ ------+| ?15-29 ?| ?Stage four ? | ? Stage four ?+ ---+ ---+ -------+| ?<15 (or dialysis) ? ?| ?Stage five ? | ? Stage five ?+ ---+ ---+ -------+ *Each stage assumes the associated GFR level has been in effect for at least three months. ?Stages 1 to 5, with or without kidney disease, indicate chronic kidney disease. Notes: Determination of stages one and two (with eGFR >59mL/min/1.73 m2) requires estimation of kidney damage for at least three months as defined by structural or functional abnormalities of the kidney, manifested by either:Pathological abnormalities or Markers of kidney damage (including abnormalities in the composition of the blood or urine or abnormalities in imaging tests). Lab Interpretation Abnormal (test code = 96493-8) [facility] 11:47:08 Test Item Value Reference Range Interpretation Comments MAGNESIUM (test code = 4713604583) 2.2 mg/dL 1.7-2.4 Lab Interpretation (test code = Normal 37493-7) [facility] 11:46:48 Test Item Value Reference Range Interpretation Comments PHOSPHORUS (test code = 7312118878) 2.4 mg/dL 2.5-5.0 L Lab Interpretation (test code = Abnormal 94093-6) [facility] (NA, K, CL, CO2, GLUCOSE, BUN, CREATININE, CA)2020-12-08 12:06:15 Test Item Value Reference Range Interpretation Comments NA (test code = 130 mmol/L 135-145 L 3383466992) K (test code = 2.8 mmol/L 3.5-5.0 LL 5591180604) CL (test code = 104 mmol/L 98-108 8990418850) CO2 TOTAL (test code = 19 mmol/L 23-31 L 2274701956) AGAP (test code = 2-16 3276930306) BUN (test code = 9 mg/dL 7-23 1653603075) GLUCOSE (test code = 114 mg/dL 70-110 H 8425992956) CREATININE (test code = 0.72 mg/dL 0.50-1.04 7773498760) CALCIUM (test code = 7.9 mg/dL 8.6-10.6 L 5753522141) eGFR (test code = mL/min/1.73m2 7004245232) ANTHONY (test code = ANTHONY) Association of Glomerular Filtration Rate (GFR) and Staging of Kidney Disease* + --+ --+ ------+| GFR (mL/min/1.73 m2) ?| With Kidney Damage ?| ?Without Kidney Damage+ --------+ --------+ +| ?>90 ?| ?Stage one ?| ? Normal ?+ ---+ ---+ -------+| ?60-89 ?| ?Stage two ?| ? Decreased GFR ? + --+ --+ ------+| ?30-59 ?| ?Stage three ?| ? Stage three ? + --+ --+ ------+| ?15-29 ?| ?Stage four ? | ? Stage four ?+ ---+ ---+ -------+| ?<15 (or dialysis) ? ?| ?Stage five ? | ? Stage five ?+ ---+ ---+ -------+ *Each stage assumes the associated GFR level has been in effect for at least three months. ?Stages 1 to 5, with or without kidney disease, indicate chronic kidney disease. Notes: Determination of stages one and two (with eGFR >59mL/min/1.73 m2) requires estimation of kidney damage for at least three months as defined by structural or functional abnormalities of the kidney, manifested by either:Pathological abnormalities or Markers of kidney damage (including abnormalities in the composition of the blood or urine or abnormalities in imaging tests). Lab Interpretation Abnormal (test code = 51102-2) [facility] 11:58:12 Test Item Value Reference Range Interpretation Comments MAGNESIUM (test code = 5309137352) 1.9 mg/dL 1.7-2.4 Lab Interpretation (test code = Normal 91951-2) [facility] 11:57:52 Test Item Value Reference Range Interpretation Comments PHOSPHORUS (test code = 9709298257) 2.7 mg/dL 2.5-5.0 Lab Interpretation (test code = Normal 50005-2) [facility] - Draw no more than 60 minutes before the 0130 dose.2020-12-08 07:49:28 Test Item Value Reference Range Interpretation Comments VANCO TROUGH (test code 18.4 ug/mL 10.0-20.0 = 9931966238) ANTHONY (test code = ANTHONY) Toxic Range: ?>20 ug/mL 15-20 ug/mL is recommended for severe infection or when Vancomycin RAHEEM is greater than or equal to 2. Lab Interpretation (test Normal code = 97948-9) [facility] WITH [id number] 13:32:28 Test Item Value Reference Range Interpretation Comments WBC (test code = See_Comment [Automated 1590-2) message] The sy stem which generated this result transmitted reference range : 4.30 - 11.10 10*3/?L. The reference range was not used to interpret this result as normal/abnormal . RBC (test code = See_Comment L [Automated 619-8) message] The sy stem which generated this result transmitted reference range : 3.93 - 5.25 10*6/?L. The reference range was not used to interpret this result as normal/abnormal . HGB (test code = 10.7 g/dL 11.6-15.0 L 718-7) HCT (test code = 30.3 % 35.7-45.2 L 4544-3) MCV (test code = 92.9 fL 80.6-95.5 787-2) MCH (test code = 32.8 pg 25.9-32.8 785-6) MCHC (test code = 35.3 g/dL 31.6-35.1 H 786-4) RDW-SD (test code = 50.9 fL 39.0-49.9 H 28634-9) RDW-CV (test code = 15.0 % 12.0-15.5 788-0) PLT (test code = See_Comment [Automated 777-3) message] The sy stem which generated this result transmitted reference range : 166 - 358 10*3/ ?L. The reference r miky was not used to interpret this result as normal/abnormal . MPV (test code = 11.3 fL 9.5-12.9 69900-3) NRBC/100 WBC (test See_Comment [Automat ed code = 6915489409) message] The system which generated this result transmitted reference range : 0.0 - 10.0 /100 WBCs. The refer ence range was not u sed to interpret th is result as normal/abnormal . NRBC x10^3 (test code See_Comment [Auto mated = 9446483052) message] The s ystem which generated this result transmitted reference range : 10*3/?L. The reference range was not used to interpret this result as normal/abnormal . GRAN MAT (NEUT) % 57.6 % (test code = 770-8) IMM GRAN % (test code 4.60 % = 9380157531) LYMPH % (test code = 27.4 % 736-9) MONO % (test code = 9.9 % 5905-5) EOS % (test code = 0.2 % 713-8) BASO % (test code = 0.3 % 706-2) GRAN MAT x10^3(ANC) 3.79 10*3/uL 1.88-7.09 (test code = 3443780107) IMM GRAN x10^3 (test 0.30 10*3/uL 0.00-0.06 H code = 6698695116) LYMPH x10^3 (test code 1.80 10*3/uL 1.32-3.29 = 731-0) MONO x10^3 (test code 0.65 10*3/uL 0.33-0.92 = 742-7) EOS x10^3 (test code = <0.03 0.03-0.39 L 711-2) BASO x10^3 (test code <0.03 0.01-0.07 = 704-7) SCHISTOCYTES (test 1+ A code = 800-3) BANDS (test code = Increased A 9851170308) Lab Interpretation Abnormal (test code = 59374-9) [facility] 11:15:12 Test Item Value Reference Range Interpretation Comments MAGNESIUM (test code = 7652368516) 2.1 mg/dL 1.7-2.4 Lab Interpretation (test code = Normal 44589-1) [facility] METABOLIC PANEL (NA, K, CL, CO2, GLUCOSE, BUN, CREATININE, CA)2020-12-07 11:15:11 Test Item Value Reference Range Interpretation Comments NA (test code = 133 mmol/L 135-145 L 4675823513) K (test code = 3.2 mmol/L 3.5-5.0 L 4200425512) CL (test code = 106 mmol/L 98-108 2554916954) CO2 TOTAL (test code = 18 mmol/L 23-31 L 9732101862) AGAP (test code = 2-16 7494891062) BUN (test code = 9 mg/dL 7-23 4336025771) GLUCOSE (test code = 106 mg/dL 70-110 6504442766) CREATININE (test code = 0.64 mg/dL 0.50-1.04 3670319721) CALCIUM (test code = 8.2 mg/dL 8.6-10.6 L 4090171348) eGFR (test code = mL/min/1.73m2 4312087691) ANTHONY (test code = ANTHONY) Association of Glomerular Filtration Rate (GFR) and Staging of Kidney Disease* + --+ --+ ------+| GFR (mL/min/1.73 m2) ?| With Kidney Damage ?| ?Without Kidney Damage+ --------+ --------+ +| ?>90 ?| ?Stage one ?| ? Normal ?+ ---+ ---+ -------+| ?60-89 ?| ?Stage two ?| ? Decreased GFR ? + --+ --+ ------+| ?30-59 ?| ?Stage three ?| ? Stage three ? + --+ --+ ------+| ?15-29 ?| ?Stage four ? | ? Stage four ?+ ---+ ---+ -------+| ?<15 (or dialysis) ? ?| ?Stage five ? | ? Stage five ?+ ---+ ---+ -------+ *Each stage assumes the associated GFR level has been in effect for at least three months. ?Stages 1 to 5, with or without kidney disease, indicate chronic kidney disease. Notes: Determination of stages one and two (with eGFR >59mL/min/1.73 m2) requires estimation of kidney damage for at least three months as defined by structural or functional abnormalities of the kidney, manifested by either:Pathological abnormalities or Markers of kidney damage (including abnormalities in the composition of the blood or urine or abnormalities in imaging tests). Lab Interpretation Abnormal (test code = 85916-7) [facility] METABOLIC PANEL (NA, K, CL, CO2, GLUCOSE, BUN, CREATININE, CA)2020-12-07 03:01:05 Test Item Value Reference Range Interpretation Comments NA (test code = 130 mmol/L 135-145 L 3565323474) K (test code = 3.4 mmol/L 3.5-5.0 L 1764102212) CL (test code = 105 mmol/L 98-108 8656964219) CO2 TOTAL (test code = 20 mmol/L 23-31 L 7924319809) AGAP (test code = 2-16 7777492981) BUN (test code = 10 mg/dL 7-23 5018227847) GLUCOSE (test code = 117 mg/dL 70-110 H 5018122996) CREATININE (test code = 0.69 mg/dL 0.50-1.04 5324772240) CALCIUM (test code = 7.9 mg/dL 8.6-10.6 L 0078132356) eGFR (test code = mL/min/1.73m2 5169618658) ANTHONY (test code = ANTHONY) Association of Glomerular Filtration Rate (GFR) and Staging of Kidney Disease* + --+ --+ ------+| GFR (mL/min/1.73 m2) ?| With Kidney Damage ?| ?Without Kidney Damage+ --------+ --------+ +| ?>90 ?| ?Stage one ?| ? Normal ?+ ---+ ---+ -------+| ?60-89 ?| ?Stage two ?| ? Decreased GFR ? + --+ --+ ------+| ?30-59 ?| ?Stage three ?| ? Stage three ? + --+ --+ ------+| ?15-29 ?| ?Stage four ? | ? Stage four ?+ ---+ ---+ -------+| ?<15 (or dialysis) ? ?| ?Stage five ? | ? Stage five ?+ ---+ ---+ -------+ *Each stage assumes the associated GFR level has been in effect for at least three months. ?Stages 1 to 5, with or without kidney disease, indicate chronic kidney disease. Notes: Determination of stages one and two (with eGFR >59mL/min/1.73 m2) requires estimation of kidney damage for at least three months as defined by structural or functional abnormalities of the kidney, manifested by either:Pathological abnormalities or Markers of kidney damage (including abnormalities in the composition of the blood or urine or abnormalities in imaging tests). Lab Interpretation Abnormal (test code = 82255-0) [facility] Metabolic Panel (NA, K, CL, CO2, GLUCOSE, BUN, CREATININE, CA)2020-12-06 17:09:25 Test Item Value Reference Range Interpretation Comments NA (test code = 126 mmol/L 135-145 L 2324478713) K (test code = 2.9 mmol/L 3.5-5.0 LL 9027641956) CL (test code = 104 mmol/L 98-108 3731665996) CO2 TOTAL (test code = 13 mmol/L 23-31 L 4797713317) AGAP (test code = 2-16 2591728926) BUN (test code = 11 mg/dL 7-23 1795543089) GLUCOSE (test code = 147 mg/dL 70-110 H 2110500583) CREATININE (test code = 0.80 mg/dL 0.50-1.04 2974055702) CALCIUM (test code = 7.9 mg/dL 8.6-10.6 L 6064597297) eGFR (test code = mL/min/1.73m2 0011015161) ANTHONY (test code = ANTHONY) Association of Glomerular Filtration Rate (GFR) and Staging of Kidney Disease* + --+ --+ ------+| GFR (mL/min/1.73 m2) ?| With Kidney Damage ?| ?Without Kidney Damage+ --------+ --------+ +| ?>90 ?| ?Stage one ?| ? Normal ?+ ---+ ---+ -------+| ?60-89 ?| ?Stage two ?| ? Decreased GFR ? + --+ --+ ------+| ?30-59 ?| ?Stage three ?| ? Stage three ? + --+ --+ ------+| ?15-29 ?| ?Stage four ? | ? Stage four ?+ ---+ ---+ -------+| ?<15 (or dialysis) ? ?| ?Stage five ? | ? Stage five ?+ ---+ ---+ -------+ *Each stage assumes the associated GFR level has been in effect for at least three months. ?Stages 1 to 5, with or without kidney disease, indicate chronic kidney disease. Notes: Determination of stages one and two (with eGFR >59mL/min/1.73 m2) requires estimation of kidney damage for at least three months as defined by structural or functional abnormalities of the kidney, manifested by either:Pathological abnormalities or Markers of kidney damage (including abnormalities in the composition of the blood or urine or abnormalities in imaging tests). Lab Interpretation Abnormal (test code = 46300-9) [facility] [id number] 17:05:09 Test Item Value Reference Range Interpretation Comments MAGNESIUM (test code = 3721104511) 2.3 mg/dL 1.7-2.4 Lab Interpretation (test code = Normal 30368-4) [facility] with [id number] 16:52:56 Test Item Value Reference Range Interpretation Comments WBC (test code = See_Comment [Automated 6690-2) message] The sy stem which generated this result transmitted reference range : 4.30 - 11.10 10*3/?L. The reference range was not used to interpret this result as normal/abnormal . RBC (test code = See_Comment L [Automated 099-8) message] The sy stem which generated this result transmitted reference range : 3.93 - 5.25 10*6/?L. The reference range was not used to interpret this result as normal/abnormal . HGB (test code = 9.7 g/dL 11.6-15.0 L 718-7) HCT (test code = 27.9 % 35.7-45.2 L 4544-3) MCV (test code = 92.7 fL 80.6-95.5 787-2) MCH (test code = 32.2 pg 25.9-32.8 785-6) MCHC (test code = 34.8 g/dL 31.6-35.1 786-4) RDW-SD (test code = 50.9 fL 39.0-49.9 H 58155-0) RDW-CV (test code = 15.0 % 12.0-15.5 788-0) PLT (test code = See_Comment [Automated 777-3) message] The sy stem which generated this result transmitted reference range : 166 - 358 10*3/ ?L. The reference r miky was not used to interpret this result as normal/abnormal . MPV (test code = 11.4 fL 9.5-12.9 25960-4) NRBC/100 WBC (test See_Comment [Automat ed code = 5364101827) message] The system which generated this result transmitted reference range : 0.0 - 10.0 /100 WBCs. The refer ence range was not u sed to interpret th is result as normal/abnormal . NRBC x10^3 (test code <0.01 See_Comment [Auto mated = [id number]) message] The s ystem which generated this result transmitted reference range : 10*3/?L. The reference range was not used to interpret this result as normal/abnormal . GRAN MAT (NEUT) % 53.9 % (test code = 770-8) IMM GRAN % (test code 3.10 % = 5491244910) LYMPH % (test code = 30.8 % 736-9) MONO % (test code = 11.3 % 5905-5) EOS % (test code = 0.3 % 713-8) BASO % (test code = 0.6 % 706-2) GRAN MAT x10^3(ANC) 3.48 10*3/uL 1.88-7.09 (test code = 6512821687) IMM GRAN x10^3 (test 0.20 10*3/uL 0.00-0.06 H code = 9663520857) LYMPH x10^3 (test code 1.99 10*3/uL 1.32-3.29 = 731-0) MONO x10^3 (test code 0.73 10*3/uL 0.33-0.92 = 742-7) EOS x10^3 (test code = <0.03 0.03-0.39 L 711-2) BASO x10^3 (test code 0.04 10*3/uL 0.01-0.07 = 704-7) BANDS (test code = Increased A 2257567812) Lab Interpretation Abnormal (test code = 39765-6) [facility] Test Item Value Reference Range Interpretation Comments MAGNESIUM (test code = 3698512324) 1.4 mg/dL 1.7-2.4 L Lab Interpretation (test code = Abnormal 01576-5) [facility] (NA, K, CL, CO2, GLUCOSE, BUN, CREATININE, CA)2020-12-06 00:00:55 Test Item Value Reference Range Interpretation Comments NA (test code = 135 mmol/L 135-145 2596712636) K (test code = 2.3 mmol/L 3.5-5.0 LL 1507144127) CL (test code = 116 mmol/L 98-108 H 7946187776) CO2 TOTAL (test code = 14 mmol/L 23-31 L 4116395398) AGAP (test code = 2-16 4039561815) BUN (test code = 16 mg/dL 7-23 2223435238) GLUCOSE (test code = 98 mg/dL 70-110 8747471369) CREATININE (test code = 0.85 mg/dL 0.50-1.04 5795767762) CALCIUM (test code = 5.7 mg/dL 8.6-10.6 LL 8854376491) eGFR (test code = mL/min/1.73m2 7408459894) ANTHONY (test code = ANTHONY) Association of Glomerular Filtration Rate (GFR) and Staging of Kidney Disease* + --+ --+ ------+| GFR (mL/min/1.73 m2) ?| With Kidney Damage ?| ?Without Kidney Damage+ --------+ --------+ +| ?>90 ?| ?Stage one ?| ? Normal ?+ ---+ ---+ -------+| ?60-89 ?| ?Stage two ?| ? Decreased GFR ? + --+ --+ ------+| ?30-59 ?| ?Stage three ?| ? Stage three ? + --+ --+ ------+| ?15-29 ?| ?Stage four ? | ? Stage four ?+ ---+ ---+ -------+| ?<15 (or dialysis) ? ?| ?Stage five ? | ? Stage five ?+ ---+ ---+ -------+ *Each stage assumes the associated GFR level has been in effect for at least three months. ?Stages 1 to 5, with or without kidney disease, indicate chronic kidney disease. Notes: Determination of stages one and two (with eGFR >59mL/min/1.73 m2) requires estimation of kidney damage for at least three months as defined by structural or functional abnormalities of the kidney, manifested by either:Pathological abnormalities or Markers of kidney damage (including abnormalities in the composition of the blood or urine or abnormalities in imaging tests). Lab Interpretation Abnormal (test code = 59591-1) [facility] STIMULATING [id number] 20:54:58 Test Item Value Reference Range Interpretation Comments TSH (test code = See_Comment [Automated message] 7451990074) The system [employer] h generated this result transmitted ref erence range: 0.45 - 4 .70 mIU/L. The refe rence range was not u sed to interpret this result as normal/abnor mal. Lab Interpretation (test Normal code = 27222-3) [facility] 20:23:21 Test Item Value Reference Range Interpretation Comments LIPASE (test code = 5281373555) 130 U/L 0-220 Lab Interpretation (test code = Normal 08372-4) [facility]CBC WITH [id number] 19:46:50 Test Item Value Reference Range Interpretation Comments WBC (test code = See_Comment [Automated 3590-2) message] The system which generated this result transmitted reference range : 4.30 - 11.10 10*3/?L. The reference range was not used to interpret this result as normal/abnormal . RBC (test code = See_Comment L [Automated 609-8) message] The system which generated this result transmitted reference range : 3.93 - 5.25 10*6/?L. The reference range was not used to interpret this result as normal/abnormal . HGB (test code = 10.4 g/dL 11.6-15.0 L 718-7) HCT (test code = 29.3 % 35.7-45.2 L 4544-3) MCV (test code = 93.0 fL 80.6-95.5 787-2) MCH (test code = 33.0 pg 25.9-32.8 H 785-6) MCHC (test code = 35.5 g/dL 31.6-35.1 H 786-4) RDW-SD (test code = 49.2 fL 39.0-49.9 39018-8) RDW-CV (test code = 14.8 % 12.0-15.5 788-0) PLT (test code = See_Comment [Automated 777-3) message] The system which generated this result transmitted reference range : 166 - 358 10*3/?L. The reference range was not used to interpret this result as normal/abnormal . MPV (test code = 11.9 fL 9.5-12.9 62840-7) NRBC/100 WBC (test See_Comment [Automat ed code = 8366623735) message] The system which generated this result transmitted reference range : 0.0 - 10.0 /100 WBCs. The reference range was not used to interpret this result as normal/abnormal . NRBC x10^3 (test code See_Comment [Auto mated = 2419201003) message] The system which generated this result transmitted reference range : 10*3/?L. The reference range was not used to interpret this result as normal/abnormal . GRAN MAT (NEUT) % 45.3 % (test code = 770-8) IMM GRAN % (test code 1.60 % = 4289949926) LYMPH % (test code = 41.5 % 736-9) MONO % (test code = 10.4 % 5905-5) EOS % (test code = 0.6 % 713-8) BASO % (test code = 0.6 % 706-2) GRAN MAT x10^3(ANC) 3.18 10*3/uL 1.88-7.09 (test code = 6346962790) IMM GRAN x10^3 (test 0.11 10*3/uL 0.00-0.06 H code = 3136258808) LYMPH x10^3 (test 2.91 10*3/uL 1.32-3.29 code = 731-0) MONO x10^3 (test code 0.73 10*3/uL 0.33-0.92 = 742-7) EOS x10^3 (test code 0.04 10*3/uL 0.03-0.39 = 711-2) BASO x10^3 (test code 0.04 10*3/uL 0.01-0.07 = 704-7) ROULEAUX (test code = Present See_Comment A [Auto mated 7797-4) message] The system which generated this result transmitted reference range : (none). The reference range was not used to interpret this result as normal/abnormal . SCHISTOCYTES (test 1+ A code = 800-3) BANDS (test code = MARKED INCREASED A 3756870755) LG GRAN LYMPHS (test Rare Rare code = 7896028777) REACT LYMPHS (test Rare code = 8676857708) TOXIC CHANGES (test Present A code = 803-7) Lab Interpretation Abnormal (test code = 26446-2) [facility]PO[facility]SE(AGE >30DAYS)2020-12-05 19:44:00 Test Item Value Reference Range Interpretation Comments POCT Glu (age>30days) (test code = 154 mg/dL 70-110 A 3342) Lab Interpretation (test code = Abnormal 93401-2) [facility] HospitalTroponin [id number] 19:21:17 Test Item Value Reference Interpretation Comments Range TROPONIN I (test 0.008 ng/mL See_Comment [Automated code = 4799366596) message] The system which generated this result transmitted reference range : <=0.034. The reference range was not used to interpret this result as normal/abnormal . ANTHONY (test code = Reference (Normal) ANTHONY) Range (defined by the 99th percentile reference limit): <= 0.034 ng/mL Note: Cardiac troponin begins to rise 3-4 hours after the onset of ischemia. Repeat in 4-6 hours if the sample was drawn within 3-4 hours of the onset of the symptom and found normal. Diagnosis of myocardial injury is made with acute changes in cTn concentrations with at least one serial sample above the 99th percentile upper reference limit (URL), taken together with the patient's clinical presentation. Biotin has been reported to cause a negative bias, interpret results relative to patient's use of biotin. Lab Interpretation Normal (test code = 10608-8) [facility] METABOLIC PANEL (13729)2020-12-05 19:10:58 Test Item Value Reference Range Interpretation Comments NA (test code = 122 mmol/L 135-145 L 8272215908) K (test code = 3.2 mmol/L 3.5-5.0 L 4725353363) CL (test code = 97 mmol/L 98-108 L 9972084566) CO2 TOTAL (test code = 16 mmol/L 23-31 L 5152687864) AGAP (test code = 2-16 4450763448) BUN (test code = 21 mg/dL 7-23 5747784424) GLUCOSE (test code = 154 mg/dL 70-110 H 0511554622) CREATININE (test code = 1.40 mg/dL 0.50-1.04 H 3864005787) TOTAL BILI (test code = 0.6 mg/dL 0.1-1.5 7057249932) CALCIUM (test code = 8.6 mg/dL 8.6-10.6 0686582887) T PROTEIN (test code = 5.7 g/dL 6.3-8.2 L 3650578064) ALBUMIN (test code = 3.0 g/dL 3.5-5.0 L 3413065436) ALK PHOS (test code = 187 U/L 34-122 H 9447866992) ALTv (test code = 43 U/L 5-35 H 1742-6) AST(SGOT) (test code = 66 U/L 13-40 H 3371702485) eGFR (test code = mL/min/1.73m2 3072866403) ANTHONY (test code = ANTHONY) Association of Glomerular Filtration Rate (GFR) and Staging of Kidney Disease* + --+ --+ ------+| GFR (mL/min/1.73 m2) ?| With Kidney Damage ?| ?Without Kidney Damage+ --------+ --------+ +| ?>90 ?| ?Stage one ?| ? Normal ?+ ---+ ---+ -------+| ?60-89 ?| ?Stage two ?| ? Decreased GFR ? + --+ --+ ------+| ?30-59 ?| ?Stage three ?| ? Stage three ? + --+ --+ ------+| ?15-29 ?| ?Stage four ? | ? Stage four ?+ ---+ ---+ -------+| ?<15 (or dialysis) ? ?| ?Stage five ? | ? Stage five ?+ ---+ ---+ -------+ *Each stage assumes the associated GFR level has been in effect for at least three months. ?Stages 1 to 5, with or without kidney disease, indicate chronic kidney disease. Notes: Determination of stages one and two (with eGFR >59mL/min/1.73 m2) requires estimation of kidney damage for at least three months as defined by structural or functional abnormalities of the kidney, manifested by either:Pathological abnormalities or Markers of kidney damage (including abnormalities in the composition of the blood or urine or abnormalities in imaging tests). Lab Interpretation Abnormal (test code = 71442-8) [facility] 19:10:58 Test Item Value Reference Range Interpretation Comments MAGNESIUM (test code = 6204693965) 1.8 mg/dL 1.7-2.4 Lab Interpretation (test code = Normal 52618-4) [facility]PO[facility] [id number] 18:53:00 Test Item Value Reference Range Interpretation Comments POCT PREG (test code = 1605) negative POCT PREG LOT # (test code = 3575) [id number] POCT PREG TEST DATE (test 2022-02-11 code = 3576) Lab Interpretation (test code = Normal 43238-1) [facility]ANT[facility]SSA(RO)2020-08-10 17:06:47 Test Item Value Reference Range Interpretation Comments ANTI-SSA(RO) (test code = Negative Negative 4640990227) ANTHONY (test code = ANTHONY) Positive - Antibody detected.Negative - No antibody detected. Lab Interpretation (test Normal code = 70390-6) [facility]SSB(LA)2020-08-10 17:06:47 Test Item Value Reference Range Interpretation Comments Anti-SSB(LA) (test code = Negative Negative 1740174806) ANTHONY (test code = ANTHONY) Positive - Antibody detected.Negative - No antibody detected. Lab Interpretation (test Normal code = 26948-0) [facility] HospitalRHEUMATOID [id number] 14:42:16 Test Item Value Reference Range Interpretation Comments RF (test code = <20 See_Comment [Automated message] 4602835323) The system [employer] generated this result transmitted ref erence range: <20 IU/m L. The reference range was not used to int erpret this result as normal/abnormal . Lab Interpretation (test Normal code = 72209-5) [facility]-REACTIVE [id number] 14:41:04 Test Item Value Reference Range Interpretation Comments CRP (test code = 5313258274) 0.3 mg/dL <0.8 Lab Interpretation (test code = Normal 60639-7) [facility] HospitalAD OR LEXX ONLY - [id number] 09:50:30 Test Item Value Reference Range Interpretation Comments RPR (Qualitative) (test code = Nonreactive Nonreactive 73984-4) Lab Interpretation (test code = Normal 22671-9) [facility] HospitalHIV 1/2 AG-AB WITH [id number] 20:09:42 Test Item Value Reference Range Interpretation Comments HIV Negative Negative Semi-quantitative (test code = 47064-1) ANTHONY (test code = Non-reactive for HIV-1 ANTHONY) antigen and HIV-1/HIV-2 antibodies. ?No laboratory evidence of HIV infection. ?Repeat in 2-4 weeks if acute HIV infection is suspected. [facility] HospitalSEDIMENTATION [id number] 19:49:09 Test Item Value Reference Range Interpretation Comments ESR (test code = See_Comment H [Automated message] 4748763747) The system [employer] generated this result transmitted ref erence range: 0 - 20 m m/HR. The reference r miky was not used to interpret this result as normal/abnor mal. Lab Interpretation (test Abnormal code = 94301-1) [facility]. METABOLIC PANEL (38879)2020-08-09 19:29:16 Test Item Value Reference Range Interpretation Comments NA (test code = 133 mmol/L 135-145 L 3106124764) K (test code = 4.4 mmol/L 3.5-5.0 4926037043) CL (test code = 97 mmol/L 98-108 L 9091224048) CO2 TOTAL (test code = 24 mmol/L 23-31 6408567806) AGAP (test code = 2-16 4320457620) BUN (test code = 21 mg/dL 7-23 4819139426) GLUCOSE (test code = 154 mg/dL 70-110 H 6132228033) CREATININE (test code = 0.86 mg/dL 0.50-1.04 5470701487) TOTAL BILI (test code = 0.5 mg/dL 0.1-1.1 7763765117) CALCIUM (test code = 10.0 mg/dL 8.6-10.6 1880938894) T PROTEIN (test code = 8.0 g/dL 6.3-8.2 2606010558) ALBUMIN (test code = 5.1 g/dL 3.5-5.0 H 7588952459) ALK PHOS (test code = 85 U/L 34-122 6995649196) ALTv (test code = 36 U/L 5-35 H 1742-6) AST(SGOT) (test code = 24 U/L 13-40 5970985609) eGFR (test code = mL/min/1.73m2 0564705444) ANTHONY (test code = ANTHONY) Association of Glomerular Filtration Rate (GFR) and Staging of Kidney Disease* + --+ --+ ------+| GFR (mL/min/1.73 m2) ?| With Kidney Damage ?| ?Without Kidney Damage+ --------+ --------+ +| ?>90 ?| ?Stage one ?| ? Normal ?+ ---+ ---+ -------+| ?60-89 ?| ?Stage two ?| ? Decreased GFR ? + --+ --+ ------+| ?30-59 ?| ?Stage three ?| ? Stage three ? + --+ --+ ------+| ?15-29 ?| ?Stage four ? | ? Stage four ?+ ---+ ---+ -------+| ?<15 (or dialysis) ? ?| ?Stage five ? | ? Stage five ?+ ---+ ---+ -------+ *Each stage assumes the associated GFR level has been in effect for at least three months. ?Stages 1 to 5, with or without kidney disease, indicate chronic kidney disease. Notes: Determination of stages one and two (with eGFR >59mL/min/1.73 m2) requires estimation of kidney damage for at least three months as defined by structural or functional abnormalities of the kidney, manifested by either:Pathological abnormalities or Markers of kidney damage (including abnormalities in the composition of the blood or urine or abnormalities in imaging tests). Lab Interpretation Abnormal (test code = 54150-1) [facility]URINALYSIS2021-06-28 18:21:29 Test Item Value Reference Range Interpretation Comments APPEARANCE (test code = Clear Clear 7280164947) COLOR (test code = Yellow Yellow 4812682307) PH (test code = 4.8-8.0 1246656323) SP GRAVITY (test code = 1.003-1.030 2244530353) GLU U QUAL (test code = Normal Normal 9495065990) BLOOD (test code = Negative Negative 7109021219) KETONES (test code = Negative Negative 2745455954) PROTEIN (test code = Negative Negative 2887-8) UROBILIN (test code = Normal Normal 1860949636) BILIRUBIN (test code = Negative Negative 3163819347) NITRITE (test code = Negative Negative 9068686411) LEUK MURRAY (test code = Negative Negative 3345807869) RBC/HPF (test code = <1 See_Comment [Autom ated message] 8399915013) The system [employer] generated this result transmitted ref erence range: 0 - 3 HP F. The reference range was not used to int erpret this result as normal/abnormal . WBC/HPF (test code = See_Comment [Autom ated message] 5457115752) The system [employer] generated this result transmitted ref erence range: 0 - 5 HP F. The reference range was not used to int erpret this result as normal/abnormal . BACTERIA (test code = Negative Negative 1971040609) MUCOUS (test code = Slight Negative LPF A 4385546330) SQ EPITH (test code = <1 HPF 6975819087) Lab Interpretation (test Abnormal code = 67796-2) [facility]URINALYSIS2021-06-28 18:21:29 Test Item Value Reference Range Interpretation Comments APPEARANCE (test code = Clear Clear 7387854720) COLOR (test code = Yellow Yellow 0865743294) PH (test code = 4.8-8.0 6554947638) SP GRAVITY (test code = 1.003-1.030 8996330358) GLU U QUAL (test code = Normal Normal 5105890641) BLOOD (test code = Negative Negative 3437147179) KETONES (test code = Negative Negative 2196041338) PROTEIN (test code = Negative Negative 2887-8) UROBILIN (test code = Normal Normal 3787297956) BILIRUBIN (test code = Negative Negative 5587404886) NITRITE (test code = Negative Negative 4930930933) LEUK MURRAY (test code = Negative Negative 2437408905) RBC/HPF (test code = <1 See_Comment [Autom ated message] 1871589537) The system [employer] generated this result transmitted ref erence range: 0 - 3 HP F. The reference range was not used to int erpret this result as normal/abnormal . WBC/HPF (test code = See_Comment [Autom ated message] 8302044401) The system [employer] generated this result transmitted ref erence range: 0 - 5 HP F. The reference range was not used to int erpret this result as normal/abnormal . BACTERIA (test code = Negative Negative 3839080080) MUCOUS (test code = Slight Negative LPF A 7894375690) SQ EPITH (test code = <1 HPF 6367068433) Lab Interpretation (test Abnormal code = 88375-9) [facility] WITH [id number] 17:36:57 Test Item Value Reference Range Interpretation Comments WBC (test code = See_Comment [Automated 7890-2) message] The sy stem which generated this result transmitted reference range : 4.30 - 11.10 10*3/?L. The reference range was not used to interpret this result as normal/abnormal . RBC (test code = See_Comment L [Automated 819-8) message] The sy stem which generated this result transmitted reference range : 3.93 - 5.25 10*6/?L. The reference range was not used to interpret this result as normal/abnormal . HGB (test code = 11.6 g/dL 11.6-15.0 718-7) HCT (test code = 34.9 % 35.7-45.2 L 4544-3) MCV (test code = 97.5 fL 80.6-95.5 H 787-2) MCH (test code = 32.4 pg 25.9-32.8 785-6) MCHC (test code = 33.2 g/dL 31.6-35.1 786-4) RDW-SD (test code = 47.8 fL 39.0-49.9 32242-0) RDW-CV (test code = 13.4 % 12.0-15.5 788-0) PLT (test code = See_Comment [Automated 777-3) message] The sy stem which generated this result transmitted reference range : 166 - 358 10*3/ ?L. The reference r miky was not used to interpret this result as normal/abnormal . MPV (test code = 9.4 fL 9.5-12.9 L 34086-7) NRBC/100 WBC (test See_Comment [Automat ed code = 3404856439) message] The system which generated this result transmitted reference range : 0.0 - 10.0 /100 WBCs. The refer ence range was not u sed to interpret th is result as normal/abnormal . NRBC x10^3 (test code <0.01 See_Comment [Auto mated = 8034471952) message] The s ystem which generated this result transmitted reference range : 10*3/?L. The reference range was not used to interpret this result as normal/abnormal . GRAN MAT (NEUT) % 80.8 % (test code = 770-8) IMM GRAN % (test code 1.90 % = 1493067008) LYMPH % (test code = 15.0 % 736-9) MONO % (test code = 2.1 % 5905-5) EOS % (test code = 0.1 % 713-8) BASO % (test code = 0.1 % 706-2) GRAN MAT x10^3(ANC) 6.79 10*3/uL 1.88-7.09 (test code = 9390231159) IMM GRAN x10^3 (test 0.16 10*3/uL 0.00-0.06 H code = 9945061033) LYMPH x10^3 (test code 1.26 10*3/uL 1.32-3.29 L = 731-0) MONO x10^3 (test code 0.18 10*3/uL 0.33-0.92 L = 742-7) EOS x10^3 (test code = <0.03 0.03-0.39 L 711-2) BASO x10^3 (test code <0.03 0.01-0.07 = 704-7) Lab Interpretation Abnormal (test code = 64954-0) [facility] WITH [id number] 17:36:57 Test Item Value Reference Range Interpretation Comments WBC (test code = See_Comment [Automated 6690-2) message] The sy stem which generated this result transmitted reference range : 4.30 - 11.10 10*3/?L. The reference range was not used to interpret this result as normal/abnormal . RBC (test code = See_Comment L [Automated 789-8) message] The sy stem which generated this result transmitted reference range : 3.93 - 5.25 10*6/?L. The reference range was not used to interpret this result as normal/abnormal . HGB (test code = 11.6 g/dL 11.6-15.0 718-7) HCT (test code = 34.9 % 35.7-45.2 L 4544-3) MCV (test code = 97.5 fL 80.6-95.5 H 787-2) MCH (test code = 32.4 pg 25.9-32.8 785-6) MCHC (test code = 33.2 g/dL 31.6-35.1 786-4) RDW-SD (test code = 47.8 fL 39.0-49.9 01744-0) RDW-CV (test code = 13.4 % 12.0-15.5 788-0) PLT (test code = See_Comment [Automated 777-3) message] The sy stem which generated this result transmitted reference range : 166 - 358 10*3/ ?L. The reference r miky was not used to interpret this result as normal/abnormal . MPV (test code = 9.4 fL 9.5-12.9 L 54419-1) NRBC/100 WBC (test See_Comment [Automat ed code = 0800317678) message] The system which generated this result transmitted reference range : 0.0 - 10.0 /100 WBCs. The refer ence range was not u sed to interpret th is result as normal/abnormal . NRBC x10^3 (test code <0.01 See_Comment [Auto mated = 3424422354) message] The s ystem which generated this result transmitted reference range : 10*3/?L. The reference range was not used to interpret this result as normal/abnormal . GRAN MAT (NEUT) % 80.8 % (test code = 770-8) IMM GRAN % (test code 1.90 % = 5495491185) LYMPH % (test code = 15.0 % 736-9) MONO % (test code = 2.1 % 5905-5) EOS % (test code = 0.1 % 713-8) BASO % (test code = 0.1 % 706-2) GRAN MAT x10^3(ANC) 6.79 10*3/uL 1.88-7.09 (test code = 0111397526) IMM GRAN x10^3 (test 0.16 10*3/uL 0.00-0.06 H code = 9283042977) LYMPH x10^3 (test code 1.26 10*3/uL 1.32-3.29 L = 731-0) MONO x10^3 (test code 0.18 10*3/uL 0.33-0.92 L = 742-7) EOS x10^3 (test code = <0.03 0.03-0.39 L 711-2) BASO x10^3 (test code <0.03 0.01-0.07 = 704-7) Lab Interpretation Abnormal (test code = 23136-5) [facility] BranchMENING[facility]IS/ENCEPHALITIS PANEL BY [id number] 22:27:23 Test Item Value Reference Range Interpretation Comments Escherichia coli K1 Negative Negative, (test code = 20176-5) Indeterminate, See Comment Haemophilus influenzae Negative Negative, (test code = 04515-3) Indeterminate, See Comment Listeria monocytogenes Negative Negative, (test code = 73680-7) Indeterminate, See Comment Neisseria meningitidis Negative Negative, (encapsulated) (test Indeterminate, code = 70984-0) See Comment Streptococcus agalactiae Negative Negative, (test code = 77106-9) Indeterminate, See Comment Streptococcus pneumoniae Negative Negative, (test code = 92294-8) Indeterminate, See Comment Cytomegalovirus (test Negative Negative, code = 53252-8) Indeterminate, See Comment Enterovirus (test code = Negative Negative, 09139-0) Indeterminate, See Comment Herpes simplex virus 1 Negative Negative, (test code = 30627-6) Indeterminate, See Comment Herpes simplex virus 2 Negative Negative, (test code = 30883-6) Indeterminate, See Comment Human herpesvirus 6 Negative Negative, (test code = 45788-6) Indeterminate, See Comment Human parechovirus (test Negative Negative, code = 64304-6) Indeterminate, See Comment Varicella zoster virus Negative Negative, (test code = 47306-1) Indeterminate, See Comment Cryptococcus Negative Negative, neoformans/gattii (test Indeterminate, code = 93150-8) See Comment ANTHONY (test code = ANTHONY) Negative:A negative result does not rule-out infection. ?This assay does not test for all potential infectious agents. Positive:A positive test result does not necessarily indicate the presence of viable organism. ? Lab Interpretation (test Normal code = 12178-0) [facility] HospitalB[facility] DIRECT [id number] 21:52:07 Test Item Value Reference Range Interpretation Comments BF COLOR (test code = Clear 4254668797) BF WBC Count (test See_Comment [Automat ed message] The code = 2368263986) system [facility] generated this result transmit karly reference range : 0 - 5 /?L. The reference r miky was not used to interpr et this result as cassandra l/abnormal. BF RBC Count (test See_Comment [Automat ed message] The code = 7738172448) system [facility] generated this result transmit karly reference range : /?L. The reference range was not used to interpr et this result as cassandra l/abnormal. [facility] HospitalBODY FLUID MANUAL [id number] 21:52:07BF SEGSComment: Less than 100 cells counted due to low WBC; Differential is not reported in percent. 10 cells counted: 1 Neutrophils, 9 Lymphocytes, 0 Macrophages [facility] SERVICES#CELS CNTDUTMB LABORATORY SERVICESUnTexas Health Presbyterian Hospital Flower MoundCEREBROSPINAL FLUID [id number] 20:58:36 Test Item Value Reference Range Interpretation Comments T. PRO CSF (test code = 68.0 mg/dL 15.0-45.0 H 4243867449) UNSPUN BODY FLUID COLOR Light Red (test code = 1985344313) UNSPUN BODY FLUID CLARITY Cloudy (test code = 7669409072) SPUN BODY FLUID COLOR [place] (test code = 6899555236) SPUN BODY FLUID CLARITY Clear (test code = 7336791431) Sediment (test code = The se diment 4498977096) volume is <0.1 mLs of the total fl uid volume of 5cc a nd its color is re d. Lab Interpretation (test Abnormal code = 48697-3) [facility] HospitalCEREBROSPINAL FLUID [id number] 20:58:25 Test Item Value Reference Range Interpretation Comments GLU CSF (test code = 74 mg/dL 50-80 8513087316) UNSPUN BODY FLUID Light Red COLOR (test code = 0400491666) UNSPUN BODY FLUID Cloudy CLARITY (test code = 5579696205) SPUN BODY FLUID COLOR [place] (test code = 3710928225) SPUN BODY FLUID Clear CLARITY (test code = 3115778029) Sediment (test code = The se diment volume is 9263766404) <0.1 mLs of the total fluid volume of 5cc and its color i s red. [facility] HospitalXR CHEST 1 [id number] 15:19:43 No acute cardiopulmonary process. Preliminary Report Dictated by Resident: Francisco Reyes MD., have reviewed this study and agree with theabove report.PROCEDURE: XR CHEST 1 VW CLINICAL INDICATION: leukocytosis TECHNIQUE: Frontal chest radiograph was obtained. COMPARISON: 06/26/2020 FINDINGS: The lungs are clear. No pleural effusion or pneumothorax is seen. The heart is normal in size. No acute bony abnormality is noted. [facility], Radiant Results Inft User - 07/14/2020 10:20 AM CDT PROCEDURE: XR CHEST 1 VWCLINICAL INDICATION: leukocytosis TECHNIQUE: Frontal chest radiograph was obtained.COMPARISON: 06/26/2020FINDINGS:The lungs are clear. No pleural effusion or pneumothorax is seen. The heart is normal in size.No acute bony abnormality is noted.IMPRESSIONNo acute cardiopulmonary process.Preliminary Report Dictated by Resident: Kaley Briseno, Francisco Melchor MD., have reviewed this study and agree with theabove report. [facility] HospitalPOCT GLUCOSE (AUTOMATED)2020-07-14 15:07:20 Test Item Value Reference Range Interpretation Comments POCT GLU (test code = 8843564448) 98 mg/dL 70-110 Lab Interpretation (test code = Normal 16949-5) [facility] HospitalC-REACTIVE [id number] 14:51:17 Test Item Value Reference Range Interpretation Comments CRP (test code = 6540461314) 0.2 mg/dL <0.8 Lab Interpretation (test code = Normal 22495-6) [facility] HospitalMAGNESIUM2021-06-02 14:40:38 Test Item Value Reference Range Interpretation Comments MAGNESIUM (test code = 8753949838) 2.1 mg/dL 1.7-2.4 Lab Interpretation (test code = Normal 08845-9) [facility] HospitalPhosphorus [id number] 13:50:50 Test Item Value Reference Range Interpretation Comments PHOSPHORUS (test code = 7855669622) 3.1 mg/dL 2.5-5.0 Lab Interpretation (test code = Normal 66620-6) [facility] HospitalBasi Metabolic Panel (NA, K, CL, CO2, GLUCOSE, BUN, CREATININE, CA)2020-07-14 12:41:09 Test Item Value Reference Range Interpretation Comments NA (test code = 136 mmol/L 135-145 7739793288) K (test code = 4.3 mmol/L 3.5-5.0 3728472607) CL (test code = 108 mmol/L 98-108 4060175356) CO2 TOTAL (test code = 17 mmol/L 23-31 L 6251012493) AGAP (test code = 2-16 1400767686) BUN (test code = 22 mg/dL 7-23 5916941940) GLUCOSE (test code = 98 mg/dL 70-110 1843909362) CREATININE (test code = 0.70 mg/dL 0.50-1.04 4926167784) CALCIUM (test code = 9.4 mg/dL 8.6-10.6 4771576027) eGFR (test code = mL/min/1.73m2 2445700862) ANTHONY (test code = ANTHONY) Association of Glomerular Filtration Rate (GFR) and Staging of Kidney Disease* + --+ --+ ------+| GFR (mL/min/1.73 m2) ?| With Kidney Damage ?| ?Without Kidney Damage+ --------+ --------+ +| ?>90 ?| ?Stage one ?| ? Normal ?+ ---+ ---+ -------+| ?60-89 ?| ?Stage two ?| ? Decreased GFR ? + --+ --+ ------+| ?30-59 ?| ?Stage three ?| ? Stage three ? + --+ --+ ------+| ?15-29 ?| ?Stage four ? | ? Stage four ?+ ---+ ---+ -------+| ?<15 (or dialysis) ? ?| ?Stage five ? | ? Stage five ?+ ---+ ---+ -------+ *Each stage assumes the associated GFR level has been in effect for at least three months. ?Stages 1 to 5, with or without kidney disease, indicate chronic kidney disease. Notes: Determination of stages one and two (with eGFR >59mL/min/1.73 m2) requires estimation of kidney damage for at least three months as defined by structural or functional abnormalities of the kidney, manifested by either:Pathological abnormalities or Markers of kidney damage (including abnormalities in the composition of the blood or urine or abnormalities in imaging tests). Lab Interpretation Abnormal (test code = 02475-5) [facility] HospitalHepatic Function Panel (ALB, T.PRO, BILI T, BU/BC, ALT, AST, ALK PHOS)2020-07-14 12:41:09 Test Item Value Reference Range Interpretation Comments TOTAL BILI (test code = 7767377661) 0.3 mg/dL 0.1-1.1 BILI UNCON (test code = 5827400342) 0.1 mg/dL 0.1-1.1 BILI CONJ (test code = 1444937125) 0.0 mg/dL 0.0-0.3 T PROTEIN (test code = 0212292685) 7.6 g/dL 6.3-8.2 ALBUMIN (test code = 3601570143) 4.6 g/dL 3.5-5.0 ALK PHOS (test code = 8961419232) 120 U/L 34-122 ALTv (test code = 1742-6) 42 U/L 5-35 H AST(SGOT) (test code = 6396920183) 24 U/L 13-40 Lab Interpretation (test code = Abnormal 95858-3) [facility] HospitalUrinalysis2021-06-02 10:22:07 Test Item Value Reference Range Interpretation Comments APPEARANCE (test code = Clear Clear 3213146313) COLOR (test code = Yellow Yellow 7465321545) PH (test code = 4.8-8.0 3605991000) SP GRAVITY (test code = 1.003-1.030 3055091155) GLU U QUAL (test code = Normal Normal 8717060650) BLOOD (test code = Negative Negative 1800516182) KETONES (test code = Negative Negative 4860773999) PROTEIN (test code = Negative Negative 2887-8) UROBILIN (test code = Normal Normal 1233404498) BILIRUBIN (test code = Negative Negative 1815405164) NITRITE (test code = Negative Negative 6274353629) LEUK MURRAY (test code = Negative Negative 1727461588) RBC/HPF (test code = See_Comment [Autom ated message] 5061969954) The system [employer] generated this result transmitted ref erence range: 0 - 3 HP F. The reference range was not used to int erpret this result as normal/abnormal . WBC/HPF (test code = See_Comment [Autom ated message] 4910038121) The system [employer] generated this result transmitted ref erence range: 0 - 5 HP F. The reference range was not used to int erpret this result as normal/abnormal . BACTERIA (test code = Negative Negative 6696722757) MUCOUS (test code = Slight Negative LPF A 5829199648) SQ EPITH (test code = See_Comment [Auto mated message] 2110093859) The system [employer] generated this result transmitted ref erence range: <=2 HPF. The reference range was not used to int erpret this result as normal/abnormal . Lab Interpretation (test Abnormal code = 89918-3) [facility] HospitalCOVID-19 (ID NOW RAPID TESTING)2020-07-14 09:45:51 Test Item Value Reference Range Interpretation Comments SARS-CoV-2 Rapid ID NOW Not Detected Not Detected (test code = 48170-5) ANTHONY (test code = ANTHONY) ID NOW COVID-19 Assay is an isothermal nucleic acid amplification test intended for the qualitative detection of nucleic acid from SARS-CoV-2 viral RNA in nasopharyngeal (REPORT CHECKER) specimens. It is used under Emergency Use Authorization (EUA) by FDA. The limit of detection (LOD) of the assay is 125 Genome Equivalents/mL. A positive result is indicative of the presence of SARS-CoV-2 RNA. ?Clinical correlation with patient history and other diagnostic information is necessary to determine patient infection status. A negative (Not Detected) result does not preclude SARS-CoV-2 infection. In patients with clinical symptoms and other tests that are consistent with SARS-CoV-2 infection, negative results should be treated as presumptive negative and a new specimen should be tested with alternative PCR molecular test. Invalid: Please collect a new specimen for repeat patient testing if clinically indicated. Lab Interpretation Normal (test code = 84603-0) [facility] with [id number] 02:07:47 Test Item Value Reference Range Interpretation Comments WBC (test code = See_Comment H [Automated 8790-2) message] The system which generated this result transmit karly reference range : 4.30 - 11.10 10*3/?L. The reference range was not used to interpret this result as normal/abnormal . RBC (test code = See_Comment L [Automated 629-8) message] The system which generated this result transmit karly reference range : 3.93 - 5.25 10*6/?L. The reference range was not used to interpret this result as normal/abnormal . HGB (test code = 11.5 g/dL 11.6-15.0 L 718-7) HCT (test code = 34.3 % 35.7-45.2 L 4544-3) MCV (test code = 95.5 fL 80.6-95.5 787-2) MCH (test code = 32.0 pg 25.9-32.8 785-6) MCHC (test code = 33.5 g/dL 31.6-35.1 786-4) RDW-SD (test code = 47.8 fL 39.0-49.9 00502-9) RDW-CV (test code = 13.6 % 12.0-15.5 788-0) PLT (test code = See_Comment H [Automated 777-3) message] The system which generated this result transmit karly reference range : 166 - 358 10*3/ ?L. The reference range was not u sed to interpret th is result as normal/abnormal . MPV (test code = 10.6 fL 9.5-12.9 27119-9) NRBC/100 WBC (test See_Comment [Automat ed code = 4783807420) message] The system which generated this result transmit karly reference range : 0.0 - 10.0 /100 WBCs. The reference range was not used to interpret this result as normal/abnormal . NRBC x10^3 (test code See_Comment [Auto mated = 4821563216) message] The system which generated this result transmit karly reference range : 10*3/?L. The reference range was not used to interpret this result as normal/abnormal . GRAN MAT (NEUT) % 70.5 % (test code = 770-8) IMM GRAN % (test code 1.60 % = 3745369512) LYMPH % (test code = 20.8 % 736-9) MONO % (test code = 6.8 % 5905-5) EOS % (test code = 0.1 % 713-8) BASO % (test code = 0.2 % 706-2) GRAN MAT x10^3(ANC) 12.19 10*3/uL 1.88-7.09 H (test code = 6662169296) IMM GRAN x10^3 (test 0.27 10*3/uL 0.00-0.06 H code = 5758904812) LYMPH x10^3 (test code 3.58 10*3/uL 1.32-3.29 H = 731-0) MONO x10^3 (test code 1.17 10*3/uL 0.33-0.92 H = 742-7) EOS x10^3 (test code = <0.03 0.03-0.39 L 711-2) BASO x10^3 (test code 0.03 10*3/uL 0.01-0.07 = 704-7) Lab Interpretation Abnormal (test code = 37587-0) [facility] HospitalSEDIMENTATION [id number] 02:02:09 Test Item Value Reference Range Interpretation Comments ESR (test code = See_Comment H [Automated message] 5175179938) The system [employer] h generated this result transmitted ref erence range: 0 - 20 m m/HR. The reference r miky was not used to interpret this result as normal/abnor mal. Lab Interpretation (test Abnormal code = 20776-7) [facility] WITH [id number] 03:30:13 Test Item Value Reference Range Interpretation Comments WBC (test code = See_Comment [Automated 6690-2) message] The sy stem which generated this result transmitted reference range : 4.30 - 11.10 10*3/?L. The reference range was not used to interpret this result as normal/abnormal . RBC (test code = See_Comment L [Automated 789-8) message] The sy stem which generated this result transmitted reference range : 3.93 - 5.25 10*6/?L. The reference range was not used to interpret this result as normal/abnormal . HGB (test code = 11.0 g/dL 11.6-15.0 L 718-7) HCT (test code = 33.1 % 35.7-45.2 L 4544-3) MCV (test code = 97.1 fL 80.6-95.5 H 787-2) MCH (test code = 32.3 pg 25.9-32.8 785-6) MCHC (test code = 33.2 g/dL 31.6-35.1 786-4) RDW-SD (test code = 48.1 fL 39.0-49.9 71364-3) RDW-CV (test code = 13.3 % 12.0-15.5 788-0) PLT (test code = See_Comment [Automated 777-3) message] The sy stem which generated this result transmitted reference range : 166 - 358 10*3/ ?L. The reference r miky was not used to interpret this result as normal/abnormal . MPV (test code = 10.4 fL 9.5-12.9 32445-7) NRBC/100 WBC (test See_Comment [Automat ed code = 7636007920) message] The system which generated this result transmitted reference range : 0.0 - 10.0 /100 WBCs. The refer ence range was not u sed to interpret th is result as normal/abnormal . NRBC x10^3 (test code <0.01 See_Comment [Auto mated = 9999532305) message] The s ystem which generated this result transmitted reference range : 10*3/?L. The reference range was not used to interpret this result as normal/abnormal . GRAN MAT (NEUT) % 44.6 % (test code = 770-8) IMM GRAN % (test code 0.80 % = 1153444470) LYMPH % (test code = 43.3 % 736-9) MONO % (test code = 10.0 % 5905-5) EOS % (test code = 0.9 % 713-8) BASO % (test code = 0.4 % 706-2) GRAN MAT x10^3(ANC) 3.52 10*3/uL 1.88-7.09 (test code = 3913790168) IMM GRAN x10^3 (test 0.06 10*3/uL 0.00-0.06 code = 3988100810) LYMPH x10^3 (test code 3.42 10*3/uL 1.32-3.29 H = 731-0) MONO x10^3 (test code 0.79 10*3/uL 0.33-0.92 = 742-7) EOS x10^3 (test code = 0.07 10*3/uL 0.03-0.39 711-2) BASO x10^3 (test code 0.03 10*3/uL 0.01-0.07 = 704-7) Lab Interpretation Abnormal (test code = 52473-5) [facility] HospitalLIPASE2021-05-23 19:38:39 Test Item Value Reference Range Interpretation Comments LIPASE (test code = 9875765411) 39 U/L 0-220 Lab Interpretation (test code = Normal 37676-1) [facility] HospitalCOMP. METABOLIC PANEL (33313)2020-07-04 19:20:59 Test Item Value Reference Range Interpretation Comments NA (test code = 138 mmol/L 135-145 3455859597) K (test code = 3.9 mmol/L 3.5-5.0 0723023504) CL (test code = 101 mmol/L 98-108 0222040720) CO2 TOTAL (test code = 27 mmol/L 23-31 3870445047) AGAP (test code = 2-16 6104554649) BUN (test code = 20 mg/dL 7-23 2385310340) GLUCOSE (test code = 105 mg/dL 70-110 3888636545) CREATININE (test code = 0.78 mg/dL 0.50-1.04 4939356165) TOTAL BILI (test code = 0.4 mg/dL 0.1-1.6 6428098410) CALCIUM (test code = 9.8 mg/dL 8.6-10.6 9720780562) T PROTEIN (test code = 9.1 g/dL 6.3-8.2 H 6726063479) ALBUMIN (test code = 4.9 g/dL 3.5-5.0 0361129589) ALK PHOS (test code = 171 U/L 34-122 H 2561758841) ALTv (test code = 136 U/L 5-35 H 1742-6) AST(SGOT) (test code = 82 U/L 13-40 H 9319068779) eGFR (test code = mL/min/1.73m2 5841912627) ANTHONY (test code = ANTHONY) Association of Glomerular Filtration Rate (GFR) and Staging of Kidney Disease* + --+ --+ ------+| GFR (mL/min/1.73 m2) ?| With Kidney Damage ?| ?Without Kidney Damage+ --------+ --------+ +| ?>90 ?| ?Stage one ?| ? Normal ?+ ---+ ---+ -------+| ?60-89 ?| ?Stage two ?| ? Decreased GFR ? + --+ --+ ------+| ?30-59 ?| ?Stage three ?| ? Stage three ? + --+ --+ ------+| ?15-29 ?| ?Stage four ? | ? Stage four ?+ ---+ ---+ -------+| ?<15 (or dialysis) ? ?| ?Stage five ? | ? Stage five ?+ ---+ ---+ -------+ *Each stage assumes the associated GFR level has been in effect for at least three months. ?Stages 1 to 5, with or without kidney disease, indicate chronic kidney disease. Notes: Determination of stages one and two (with eGFR >59mL/min/1.73 m2) requires estimation of kidney damage for at least three months as defined by structural or functional abnormalities of the kidney, manifested by either:Pathological abnormalities or Markers of kidney damage (including abnormalities in the composition of the blood or urine or abnormalities in imaging tests). Lab Interpretation Abnormal (test code = 33620-0) [facility] HospitalUrinalysis2021-05-23 19:14:12 Test Item Value Reference Range Interpretation Comments APPEARANCE (test code = Clear Clear 5307530257) COLOR (test code = Yellow Yellow 0109548017) PH (test code = 4.8-8.0 5212077136) SP GRAVITY (test code = 1.003-1.030 0256717519) GLU U QUAL (test code = Normal Normal 9186357931) BLOOD (test code = Negative Negative 0364809719) KETONES (test code = Negative Negative 6755134261) PROTEIN (test code = Negative Negative 2887-8) UROBILIN (test code = Normal Normal 7349357316) BILIRUBIN (test code = Negative Negative 7379681551) NITRITE (test code = Negative Negative 5635770404) LEUK MURRAY (test code = 75/uL Negative A 3419718202) RBC/HPF (test code = See_Comment [Autom ated message] 1395043901) The system [employer] generated this result transmitted ref erence range: 0 - 3 HP F. The reference range was not used to int erpret this result as normal/abnormal . WBC/HPF (test code = See_Comment H [Autom ated message] 2020692630) The system [employer] generated this result transmitted ref erence range: 0 - 5 HP F. The reference range was not used to int erpret this result as normal/abnormal . BACTERIA (test code = Negative Negative 4356569298) MUCOUS (test code = Slight Negative LPF A 6453856335) SQ EPITH (test code = HPF 2098784392) Lab Interpretation (test Abnormal code = 27276-4) [facility] HospitalCBC WITH [id number] 19:10:40 Test Item Value Reference Range Interpretation Comments WBC (test code = See_Comment [Automated 6690-2) message] The sy stem which generated this result transmitted reference range : 4.30 - 11.10 10*3/?L. The reference range was not used to interpret this result as normal/abnormal . RBC (test code = See_Comment L [Automated 789-8) message] The sy stem which generated this result transmitted reference range : 3.93 - 5.25 10*6/?L. The reference range was not used to interpret this result as normal/abnormal . HGB (test code = 11.7 g/dL 11.6-15.0 718-7) HCT (test code = 35.2 % 35.7-45.2 L 4544-3) MCV (test code = 97.2 fL 80.6-95.5 H 787-2) MCH (test code = 32.3 pg 25.9-32.8 785-6) MCHC (test code = 33.2 g/dL 31.6-35.1 786-4) RDW-SD (test code = 47.2 fL 39.0-49.9 56105-5) RDW-CV (test code = 13.2 % 12.0-15.5 788-0) PLT (test code = See_Comment [Automated 777-3) message] The sy stem which generated this result transmitted reference range : 166 - 358 10*3/ ?L. The reference r miky was not used to interpret this result as normal/abnormal . MPV (test code = 10.5 fL 9.5-12.9 47486-4) NRBC/100 WBC (test See_Comment [Automat ed code = 0691017427) message] The system which generated this result transmitted reference range : 0.0 - 10.0 /100 WBCs. The refer ence range was not u sed to interpret th is result as normal/abnormal . NRBC x10^3 (test code <0.01 See_Comment [Auto mated = 6495474421) message] The s ystem which generated this result transmitted reference range : 10*3/?L. The reference range was not used to interpret this result as normal/abnormal . GRAN MAT (NEUT) % 54.8 % (test code = 585-8) IMM GRAN % (test code 0.80 % = 1437350984) LYMPH % (test code = 32.1 % 736-9) MONO % (test code = 10.3 % 5905-5) EOS % (test code = 1.7 % 713-8) BASO % (test code = 0.3 % 706-2) GRAN MAT x10^3(ANC) 3.46 10*3/uL 1.88-7.09 (test code = 8785099827) IMM GRAN x10^3 (test 0.05 10*3/uL 0.00-0.06 code = 0062353680) LYMPH x10^3 (test code 2.03 10*3/uL 1.32-3.29 = 731-0) MONO x10^3 (test code 0.65 10*3/uL 0.33-0.92 = 742-7) EOS x10^3 (test code = 0.11 10*3/uL 0.03-0.39 711-2) BASO x10^3 (test code <0.03 0.01-0.07 = 704-7) Lab Interpretation Abnormal (test code = 07553-4) [facility] [id number] 17:09:15 Test Item Value Reference Range Interpretation Comments TROPONIN I (test 0.000 ng/mL See_Comment [Automated code = 3680080419) message] The system which generated this result transmitted reference range : <=0.034. The reference range was not used to interpret this result as normal/abnormal . ANTHONY (test code = Equal or Less than ANTHONY) 0.034 ng/ml---Normal ?Note: Cardiac troponin begins to rise 3-4 hours after the onset of ischemia. Repeat in 4-6 hours if the sample was drawn within 3-4 hours of the onset of the symptom and found normal. Between 0.035 and 0.120 ng/mL--- Borderline. Questionable myocardial injury or necrosis ? ?Note: Serial measurement may be necessary to confirm or exclude the diagnosis of myocardial injury or necrosis; Clinical correlation (symptoms, EKGs, imaging studies, and others) required; Repeat in 4-6 hours if clinically indicated. ? Equal or Higher than 0.121 ng/mL---Abnormal. Myocardial Injury or Necrosis Likely ? Biotin has been reported to cause a negative bias, interpret results relative to patient's use of biotin. ? Lab Interpretation Normal (test code = 08406-9) [facility]MR [facility]IN WO [id number] 15:28:24 Within the limitation of motion degrading image quality, no acuteintracranial abnormality, specifically no abnormal signal seen to suggestPRES. Preliminary Report Dictated by Resident: Aury Jimenez MD., have reviewed this study and agree with theabove report.MR BRAIN WO CONTRAST COMPARISON: CT head dated 06/26/2020. HISTORY: Headache, intracranial hemorrhage suspected Neuro deficit, acute,stroke suspected worst headache, rule out PRES, hypertensive TECHNIQUE: Multi weightedmultiplanar MRI of the head was done withoutcontrast on 1.5 [place] magnet FINDINGS: Motion degrading image quality. The ventricles and cerebral sulci are normal in caliber and configuration.No midline shift, hydrocephalus or pathological extra-axial fluidcollection is present. The basal cisterns are unremarkable. No restricted diffusion is present suggest acute/subacute infarct. Noabnormal parenchymalsignal abnormality seen. No abnormal gradientblooming. The T2 flow voids for the major intracranial v essels are unremarkable. Noabnormal fluid signal is present in the mastoid air cells or paranasalsinuses. [facility], Radiant Results Inft User - 06/27/2020 10:29 AM [facility] CONTRASTCOMPARISON: CT head dated 06/26/2020.HISTORY: Headache, intracranial hemorrhage suspected Neuro deficit, acute,stroke suspected worst headache, rule out PRES, hypertensive TECHNIQUE: Multi weighted multiplanar MRI of the head was done withoutcontrast on 1.5 [place] magnetFINDINGS:Motion degrading image quality.The ventricles and cerebral sulci are normal in caliber and configuration.No midline shift, hydrocephalus or pathological extra-axial fluidcollection is present. The basal cisterns are unremarkable.No restricted diffusion is present suggest acute/subacute infarct. Noabnormal parenchymal signal abnormality seen. Noabnormal gradientblooming.The T2 flow voids for the major intracranial vessels are unremarkable. Noabnormal fluid signal is present in the mastoid air cells or paranasalsinuses.IMPRESSIONWithin the limitation of motion degrading image quality, no acuteintracranial abnormality, specifically no abnormalsignal seen to suggestPRES.Preliminary Report Dictated by Resident: Aury Jimenez MD., have reviewed this study and agree with theabove report.[facility]CT [facility] 2020-06-27 01:50:14 No large vessel occlusion or flow-limiting stenosis is identified in thehead and neck arteries. Follow-up with dedicated thyroid ultrasound on a non-emergent, outpatientbasis is recommended for further characterization. Preliminary Report Dictated by Resident: Aury Hallman MD.,have reviewed this study and agree with theabove report.EXAM: CT ANGIOGRAM HEAD, CT ANGIOGRAM NECK HISTORY: ?Headache, intracranial hemorrhage suspected TECHNIQUE: Axial CT imaging of the [place] of [place] and from the skull baseto the superior mediastinum was obtained during arterial phase after theintravenous administration of IV contrast. Coronal, sagittal, and MIPS wereconstructed. COMPARISON: Same day CT head FINDINGS: CTA HEAD: The PICA origin is visualized bilaterally. The basilar artery is normal incaliber. Common origin of the left superior cerebellar and BAR CATCHER is noted.The superior cerebellar arteries are patent. The posterior cerebralarteries are patent. A right BAR CATCHER is identified. Asmall leftposterior communicating artery is identified. The distal cervical, petrous, cavernous and supraclinoid internal carotidarteries are patent. The anterior and middle cerebral arteries are patent. A fenestratedanterior communicating artery configuration is noted. There is contrastopacificationof the dural venous sinuses. CTA NECK: Aortic arch and arch vessel origins: Four vessel branching pattern withleft vertebral artery identified arising off the aortic arch. Innominate and subclavian ar teries: The innominate and subclavian arteriesare otherwise widely patent. Common carotids: The cervical, common carotid, carotid bulbs, internal, andintracranial carotid artery segments are patent bilaterally withoutflow- limiting stenosis. Vertebral arteries: The vertebral arteries are codominant. The vertebralarteries are patent without flow-limiting stenosis from their originthrough their vertebral and intradural segments. Cervical soft tissues: Heterogeneous thyroid gland with with asymmetricenlargement of the left thyroid lobe. A 1.0 cm right thyroid lobe and 1.8cm left thyroid lobe hypoattenuating nodules are identified. Kyphotic reversal of the cervical spine. [facility], Radiant Results Inft User - 06/26/2020 8:51 PM CDTEXAM: CT ANGIOGRAM HEAD, CT ANGIOGRAM NECKHISTORY: Headache, intracranial hemorrhage suspected TECHNIQUE: Axial CT imaging of the [place] and from the skull basetothe superior mediastinum was obtained during arterial phase after theintravenous administration of IV contrast. Coronal, sagittal, and MIPS wereconstructed.COMPARISON: Same day CT headFINDINGS:CTA HEAD:The PICA origin is visualized bilaterally. The basilar artery is normal incaliber. Common origin of the left superior cerebellar and BAR CATCHER is noted.The superior cerebellar arteries are patent. The posterior cerebralarteries are patent. A right BAR CATCHER is identified. A small leftposterior communicatingartery is identified.The distal cervical, petrous, cavernous and supraclinoid internal carotidarteries are patent. The anterior and middle cerebral arteries are patent. A fenestratedanterior communicating artery configuration is noted. There is contrastopacification of the dural venous sinuses. CTA NECK:Aortic arch and arch vessel origins: Four vessel branching pattern withleft vertebral artery identi fied arising off the aortic arch. Innominate and subclavian arteries: The innominate and subclavian arteriesare otherwise widely patent.Common carotids: The cervical, common carotid, carotid bulbs, internal, andintracranial carotid artery segments are patent bilaterally withoutflow-limiting stenosis. Vertebral arteries: The vertebral arteries are codominant. The vertebralarteries are patent without flow-limiting stenosis from their originthrough their vertebral and intradural segments.Cervical soft tissues: Heterogeneous thyroid gland with with asymmetricenlargement of the left thyroid lobe. A 1.0 cm right thyroid lobe and 1.8cm left thyroid lobe hypoattenuating nodules are identified.Kyphotic reve rsal of the cervical spine. IMPRESSIONNo large vessel occlusion or flow-limiting stenosis is identified in thehead and neck arteries.Follow-up with dedicated thyroid ultrasound on a non-emergent, outpatientbasis is recommended for further characterization. Preliminary Report Dictated by Resident: Ritesh Sandy MD., have reviewed this study and agree with theabove report. [facility] [id number] 01:50:14 No large vessel occlusion or flow-limiting stenosis is identified in thehead and neck arteries. Follow-up with dedicated thyroid ultrasound on a non-emergent, outpatientbasis is recommended for further characterization. Preliminary Report Dictated by Resident: Aury Hallman MD.,have reviewed this study and agree with theabove report.EXAM: CT ANGIOGRAM HEAD, CT ANGIOGRAM NECK HISTORY: ?Headache, intracranial hemorrhage suspected TECHNIQUE: Axial CT imaging of the [place] and from the skull baseto the superior mediastinum was obtained during arterial phase after theintravenous administration of IV contrast. Coronal, sagittal, and MIPS wereconstructed. COMPARISON: Same day CT head FINDINGS: CTA HEAD: The PICA origin is visualized bilaterally. The basilar artery is normal incaliber. Common origin of the left superior cerebellar and BAR CATCHER is noted.The superior cerebellar arteries are patent. The posterior cerebralarteries are patent. A right BAR CATCHER is identified. Asmall leftposterior communicating artery is identified. The distal cervical, petrous, cavernous and supraclinoid internal carotidarteries are patent. The anterior and middle cerebral arteries are patent. A fenestratedanterior communicating artery configuration is noted. There is contrastopacificationof the dural venous sinuses. CTA NECK: Aortic arch and arch vessel origins: Four vessel branching pattern withleft vertebral artery identified arising off the aortic arch. Innominate and subclavian arteries: The innominate and subclavian arteriesare otherwise widely patent. Common carotids: The cervical, common carotid, carotid bulbs, internal, andintracranial carotid artery segments are patent bilaterally withoutflow-limiting stenosis. Vertebral arteries: The vertebral arteries are codominant. The vertebralarteries are patent without flow-limiting stenosis from their originthrough their vertebral and intradural segments. Cervical soft tissues: Heterogeneous thyroid gland with with asymmetricenlargement of the left thyroid lobe. A 1.0 cm right thyroid lobe and 1.8cm left thyroid lobe hypoattenuating nodules are identified. Kyphotic reversal of the cervical spine. [facility], [facility] Results Inft User - 06/26/2020 8:51 PM CDTEXAM: CT ANGIOGRAM HEAD, CT ANGIOGRAM NECKHISTORY: Headache, intracranial hemorrhage suspected TECHNIQUE: Axial CT imaging of the [place] and from the skull basetothe superior mediastinum was obtained during arterial phase after theintravenous administration of IV contrast. Coronal, sagittal, and MIPS wereconstructed.COMPARISON: Same day CT headFINDINGS:CTA HEAD:The PICA origin is visualized bilaterally. The basilar artery is normal incaliber. Common origin of the left superior cerebellar and BAR CATCHER is noted.The superior cerebellar arteries are patent. The posterior cerebralarteries are patent. A right BAR CATCHER is identified. A small leftposterior communicating artery is identified.The distal cervical, petrous, cavernous and supraclinoid internal carotidarteries are patent. The anterior and middle cerebral arteries are patent. A fenestratedanterior communicating artery configuration is noted. There is contrastopacification of the dural venous sinuses. CTA NECK:Aortic arch and arch vessel origins: Four vessel branching pattern withleft vertebral artery identified arising off the aortic arch. Innominate and subclavian arteries: The innominate and subclavian arteriesare otherwise widely patent.Common carotids: The cervical, common carotid, carotid bulbs, internal, andintracranial carotid artery segments are patent bilaterally withoutflow-limiting stenosis. Vertebral arteries: The vertebral arteries are codominant. The vertebralarteries are patent without flow-limiting stenosis from their originthrough their vertebral and intradural segments.Cervical soft tissues: Heterogeneous thyroid gland with with asymmetricenlargement of the left thyroid lobe. A 1.0 cm right thyroid lobe and 1.8cm left thyroid lobe hypoattenuating nodules are identified.Kyphotic reve rsal of the cervical spine. IMPRESSIONNo large vessel occlusion or flow-limiting stenosis is identified in thehead and neck arteries.Follow-up with dedicated thyroid ultrasound on a non-emergent, outpatientbasis is recommended for further characterization. Preliminary Report Dictated by Resident: Ritesh Sandy MD., have reviewed this study and agree with theabove report. [facility] HospitalSEDIMENTATION [id number] 01:00:08 Test Item Value Reference Range Interpretation Comments ESR (test code = See_Comment H [Automated message] [id number]) The system [employer] generated this result transmitted ref erence range: 0 - 20 m m/HR. The reference r miky was not used to interpret this result as normal/abnor mal. Lab Interpretation (test Abnormal code = 64532-1) [facility] HospitalCT HEAD WO [id number] 00:39:04 No acute intracranial hemorrhage or mass effect. Preliminary Report Dictated by Resident: Aury Linton MD., have reviewed this study and agree with theabove report.CT HEAD WO CONTRAST HISTORY: Headache, intracranial hemorrhage suspected COMPARISON: None. TECHNIQUE: Nonenhanced CT scan of the head was done in the axial dimension.Regenerated formats in the coronal and sagittal dimensions were obtained. FINDINGS: The ventricles and cerebral sulci are normal in caliber and configuration.No midline shift, hydrocephalus or pathological extra-axial fluidcollection is present. The basal cisterns are unremarkable. There is no acute intraparenchymal hemorrhage or significant mass effect.No parenchymal attenuation abnormality seen. The stone- white matterdifferentiation is preserved. The mastoid air cells and visualized paranasal sinuses are clear. Thecalvarium and central skull base are unremarkable. [facility], [facility]iant Results Inft User - 06/26/2020 7:40 PM CDTCT HEAD WO CONTRASTHISTORY: Headache, intracranial hemorrhage suspected COMPARISON: None.TECHNIQUE: Nonenhanced CT scan of the head was done in the axial dimension.Regenerated formats in the coronal and sagittal dimensions were obtained.FINDINGS:The ventricles and cerebral sulci are normal in caliber and configuration.No midline shift, hydrocephalus or pathological extra-axial fluidcollection is present. The basal cisterns are unremarkable.There is no acute intraparenchymal hemorrhage or significant mass effect.No parenchymal attenuation abnormality seen. The stone-white matterdifferentiation is preserved.The mastoid air cells and visualized paranasal sinuses are clear. Thecalvarium and central skull base are unremarkable.IMPRESSIONNo acute intracranial hemorrhage or mass effect. Preliminary Report Dictated by Resident: Aury Jimenez MD., have reviewed this study and agree with theabove report.[facility] HospitalCOVID-19 (ID NOW RAPID TESTING)2020-06-26 22:58:15 Test Item Value Reference Range Interpretation Comments SARS-CoV-2 Rapid ID NOW Not Detected Not Detected (test code = 08877-0) ANTHONY (test code = ANTHONY) ID NOW COVID-19 Assay is an isothermal nucleic acid amplification test intended for the qualitative detection of nucleic acid from SARS-CoV-2 viral RNA in nasopharyngeal (REPORT CHECKER) specimens. It is used under Emergency Use Authorization (EUA) by FDA. The limit of detection (LOD) of the assay is 125 Genome Equivalents/mL. A positive result is indicative of the presence of SARS-CoV-2 RNA. ?Clinical correlation with patient history and other diagnostic information is necessary to determine patient infection status. A negative (Not Detected) result does not preclude SARS-CoV-2 infection. In patients with clinical symptoms and other tests that are consistent with SARS-CoV-2 infection, negative results should be treated as presumptive negative and a new specimen should be tested with alternative PCR molecular test. Invalid: Please collect a new specimen for repeat patient testing if clinically indicated. Lab Interpretation Normal (test code = 31954-3) [facility] 1 [id number] 22:12:42 No acute cardiopulmonary abnormality. Preliminary Report Dictated by Resident: Rex Christopher MD., have reviewed this study and agree with the abovereport.EXAM: XR CHEST 1 VW CLINICAL INDICATION: CP COMPARISON: 12/08/2019 FINDINGS: The lungs are well-expanded and clear without focal consolidation, pleuraleffusion, or pneumothorax. The cardiac silhouette is normal in size. No acuteosseous abnormality. [facility], Radiant Results Inft User - 06/26/2020 5:13 PM CDTEXAM: XR CHEST 1 VWCLINICAL INDICATION: CP COMPARISON: 12/08/2019FINDINGS:The lungs are well-expanded and clear without focal consolidation, pleuraleffusion, or pneumothorax. The cardiac silhouette is normal in size. No acute osseous abnormality. IMPRESSIONNo acute cardiopulmonary abnormality. Preliminary Report Dictated by Resident: Rex Villanueva MD., have reviewed this study and agree with the abovereport.[facility] HospitalUrinalysis 2020-06-26 21:49:50 Test Item Value Reference Range Interpretation Comments APPEARANCE (test code = Clear Clear 0144846125) COLOR (test code = Yellow Yellow 5004768339) PH (test code = 4.8-8.0 7586684817) SP GRAVITY (test code = 1.003-1.030 4547117738) GLU U QUAL (test code = Normal Normal 4999649652) BLOOD (test code = Negative Negative 9529423916) KETONES (test code = Negative Negative 2517210797) PROTEIN (test code = Negative Negative 2887-8) UROBILIN (test code = Normal Normal 7421012137) BILIRUBIN (test code = Negative Negative 3743402555) NITRITE (test code = Negative Negative 4140384053) LEUK MURRAY (test code = Negative Negative 3282553669) RBC/HPF (test code = See_Comment [Autom ated message] 5585677630) The system [employer] generated this result transmitted ref erence range: 0 - 3 HP F. The reference range was not used to int erpret this result as normal/abnormal . WBC/HPF (test code = See_Comment [Autom ated message] 7878002989) The system [employer] generated this result transmitted ref erence range: 0 - 5 HP F. The reference range was not used to int erpret this result as normal/abnormal . BACTERIA (test code = Negative Negative 8559305590) MUCOUS (test code = Slight Negative LPF A 5857017116) SQ EPITH (test code = HPF 4157614793) Lab Interpretation (test Abnormal code = 25327-1) [facility] HospitalGauravjohn[facility] hospitalrey [id number] 21:18:44 Test Item Value Reference Range Interpretation Comments TROPONIN I (test <0.012 See_Comment [Automated code = 5153698526) message] The system which generated this result transmitted reference range : <=0.034 ng/mL. The reference range was not used to interpr et this result as normal/abnormal . ANTHONY (test code = Equal or Less than ANTHONY) 0.034 ng/ml---Normal ?Note: Cardiac troponin begins to rise 3-4 hours after the onset of ischemia. Repeat in 4-6 hours if the sample was drawn within 3-4 hours of the onset of the symptom and found normal. Between 0.035 and 0.120 ng/mL--- Borderline. Questionable myocardial injury or necrosis ? ?Note: Serial measurement may be necessary to confirm or exclude the diagnosis of myocardial injury or necrosis; Clinical correlation (symptoms, EKGs, imaging studies, and others) required; Repeat in 4-6 hours if clinically indicated. ? Equal or Higher than 0.121 ng/mL---Abnormal. Myocardial Injury or Necrosis Likely ? Biotin has been reported to cause a negative bias, interpret results relative to patient's use of biotin. ? Lab Interpretation Normal (test code = 07756-8) [facility] (NA, K, CL, CO2, GLUCOSE, BUN, CREATININE, CA)2020-06-26 21:07:49 Test Item Value Reference Range Interpretation Comments NA (test code = 141 mmol/L 135-145 5095614055) K (test code = 4.1 mmol/L 3.5-5.0 8324318202) CL (test code = 109 mmol/L 98-108 H 9303477279) CO2 TOTAL (test code = 23 mmol/L 23-31 0369809560) AGAP (test code = 2-16 2756041127) BUN (test code = 19 mg/dL 7-23 6035008072) GLUCOSE (test code = 112 mg/dL 70-110 H 7013129475) CREATININE (test code = 0.87 mg/dL 0.50-1.04 3238626407) CALCIUM (test code = 9.6 mg/dL 8.6-10.6 6806525971) eGFR (test code = mL/min/1.73m2 0723133797) ANTHONY (test code = ANTHONY) Association of Glomerular Filtration Rate (GFR) and Staging of Kidney Disease* + --+ --+ ------+| GFR (mL/min/1.73 m2) ?| With Kidney Damage ?| ?Without Kidney Damage+ --------+ --------+ +| ?>90 ?| ?Stage one ?| ? Normal ?+ ---+ ---+ -------+| ?60-89 ?| ?Stage two ?| ? Decreased GFR ? + --+ --+ ------+| ?30-59 ?| ?Stage three ?| ? Stage three ? + --+ --+ ------+| ?15-29 ?| ?Stage four ? | ? Stage four ?+ ---+ ---+ -------+| ?<15 (or dialysis) ? ?| ?Stage five ? | ? Stage five ?+ ---+ ---+ -------+ *Each stage assumes the associated GFR level has been in effect for at least three months. ?Stages 1 to 5, with or without kidney disease, indicate chronic kidney disease. Notes: Determination of stages one and two (with eGFR >59mL/min/1.73 m2) requires estimation of kidney damage for at least three months as defined by structural or functional abnormalities of the kidney, manifested by either:Pathological abnormalities or Markers of kidney damage (including abnormalities in the composition of the blood or urine or abnormalities in imaging tests). Lab Interpretation Abnormal (test code = 37451-7) [facility] HospitalHepatic Function Panel (ALB, T.PRO, BILI T, BU/BC, ALT, AST, ALK PHOS)2020-06-26 21:07:28 Test Item Value Reference Range Interpretation Comments TOTAL BILI (test code = 9383278449) 0.3 mg/dL 0.1-1.1 BILI UNCON (test code = 4857216228) 0.1 mg/dL 0.1-1.1 BILI CONJ (test code = 2888895569) 0.0 mg/dL 0.0-0.3 T PROTEIN (test code = 2571030096) 7.4 g/dL 6.3-8.2 ALBUMIN (test code = 4942821177) 4.4 g/dL 3.5-5.0 ALK PHOS (test code = 6195929817) 138 U/L 34-122 H ALTv (test code = 1742-6) 32 U/L 5-35 AST(SGOT) (test code = 4111289287) 40 U/L 13-40 Lab Interpretation (test code = Abnormal 29570-6) [facility] HospitalCB with [id number] 20:55:04 Test Item Value Reference Range Interpretation Comments WBC (test code = See_Comment [Automated 8290-2) message] The sy stem which generated this result transmitted reference range : 4.30 - 11.10 10*3/?L. The reference range was not used to interpret this result as normal/abnormal . RBC (test code = See_Comment L [Automated 789-8) message] The sy stem which generated this result transmitted reference range : 3.93 - 5.25 10*6/?L. The reference range was not used to interpret this result as normal/abnormal . HGB (test code = 10.3 g/dL 11.6-15.0 L 718-7) HCT (test code = 31.0 % 35.7-45.2 L 4544-3) MCV (test code = 97.8 fL 80.6-95.5 H 787-2) MCH (test code = 32.5 pg 25.9-32.8 785-6) MCHC (test code = 33.2 g/dL 31.6-35.1 786-4) RDW-SD (test code = 49.3 fL 39.0-49.9 17824-9) RDW-CV (test code = 13.7 % 12.0-15.5 788-0) PLT (test code = See_Comment [Automated 777-3) message] The sy stem which generated this result transmitted reference range : 166 - 358 10*3/ ?L. The reference r miky was not used to interpret this result as normal/abnormal . MPV (test code = 10.7 fL 9.5-12.9 96336-7) NRBC/100 WBC (test See_Comment [Automat ed code = 0415288332) message] The system which generated this result transmitted reference range : 0.0 - 10.0 /100 WBCs. The refer ence range was not u sed to interpret th is result as normal/abnormal . NRBC x10^3 (test code <0.01 See_Comment [Auto mated = 7617262899) message] The s ystem which generated this result transmitted reference range : 10*3/?L. The reference range was not used to interpret this result as normal/abnormal . GRAN MAT (NEUT) % 57.2 % (test code = 770-8) IMM GRAN % (test code 0.20 % = 6926997788) LYMPH % (test code = 31.8 % 736-9) MONO % (test code = 9.9 % 5905-5) EOS % (test code = 0.6 % 713-8) BASO % (test code = 0.3 % 706-2) GRAN MAT x10^3(ANC) 3.80 10*3/uL 1.88-7.09 (test code = 3341086763) IMM GRAN x10^3 (test <0.03 0.00-0.06 code = 8984180405) LYMPH x10^3 (test code 2.11 10*3/uL 1.32-3.29 = 731-0) MONO x10^3 (test code 0.66 10*3/uL 0.33-0.92 = 742-7) EOS x10^3 (test code = 0.04 10*3/uL 0.03-0.39 711-2) BASO x10^3 (test code <0.03 0.01-0.07 = 704-7) Lab Interpretation Abnormal (test code = 76450-2) [facility] HospitalCOMP. METABOLIC PANEL (23988)2020-06-01 11:34:39 Test Item Value Reference Range Interpretation Comments NA (test code = 137 mmol/L 135-145 4120347162) K (test code = 4.3 mmol/L 3.5-5.0 3305802973) CL (test code = 106 mmol/L 98-108 0776584425) CO2 TOTAL (test code = 26 mmol/L 23-31 7471660738) AGAP (test code = 2-16 5249740497) BUN (test code = 13 mg/dL 7-23 0112582999) GLUCOSE (test code = 81 mg/dL 70-110 8880896704) CREATININE (test code = 0.76 mg/dL 0.50-1.04 5148858891) TOTAL BILI (test code = 0.4 mg/dL 0.1-1.5 2863006404) CALCIUM (test code = 8.5 mg/dL 8.6-10.6 L 5693165049) T PROTEIN (test code = 6.0 g/dL 6.3-8.2 L 6393763926) ALBUMIN (test code = 3.5 g/dL 3.5-5.0 1614119120) ALK PHOS (test code = 128 U/L 34-122 H 4710079907) ALTv (test code = 54 U/L 5-35 H 1742-6) AST(SGOT) (test code = 51 U/L 13-40 H 1026030315) eGFR (test code = mL/min/1.73m2 8686568694) ANTHONY (test code = ANTHONY) Association of Glomerular Filtration Rate (GFR) and Staging of Kidney Disease* + --+ --+ ------+| GFR (mL/min/1.73 m2) ?| With Kidney Damage ?| ?Without Kidney Damage+ --------+ --------+ +| ?>90 ?| ?Stage one ?| ? Normal ?+ ---+ ---+ -------+| ?60-89 ?| ?Stage two ?| ? Decreased GFR ? + --+ --+ ------+| ?30-59 ?| ?Stage three ?| ? Stage three ? + --+ --+ ------+| ?15-29 ?| ?Stage four ? | ? Stage four ?+ ---+ ---+ -------+| ?<15 (or dialysis) ? ?| ?Stage five ? | ? Stage five ?+ ---+ ---+ -------+ *Each stage assumes the associated GFR level has been in effect for at least three months. ?Stages 1 to 5, with or without kidney disease, indicate chronic kidney disease. Notes: Determination of stages one and two (with eGFR >59mL/min/1.73 m2) requires estimation of kidney damage for at least three months as defined by structural or functional abnormalities of the kidney, manifested by either:Pathological abnormalities or Markers of kidney damage (including abnormalities in the composition of the blood or urine or abnormalities in imaging tests). Lab Interpretation Abnormal (test code = 59902-3) [facility] HospitalLAB ONLY COVID [id number] 02:48:13COVID DMT InterpretationInterpretation/Recommendations: Molecular NAAT Tests for Active Infection with the SARS-CoV-2 Virus: The patient has currently tested negative for the SARS-CoV-2 virus that causes COVID-19 illness. This most likely indicates that the patient does not have an active infection with the SARS-CoV-2 virus. However, infection is not completely ruled out as the false negative rate for molecular NAAT testing using a nasopharyngeal sample can be up to 30%, mostly dependent on the timing of sample collection in relation to illness onset and any deficiencies in sampling techniques. If the patient has symptoms concerning for COVID-19 illness, a repeat NAAT test (PCR, Rapid ID Now, etc.) should be performed, at which time the SARS-CoV-2 virus - if present - may have reached a detectable viral load (usually peaking by the end of the first week of symptoms). Tests for IgM and/or IgGAntibodies to the SARS-CoV-2 Virus: If the patient develops COVID-19 illness in the future, testingfor IgM and IgG antibodies approximately 3 weeks after illness onset will likely indicate if the patient has produced antibodies to the SARS-CoV-2 virus. However, some patients may take longer to develop detectable antibodies, while some patients who were infected with SARS-CoV-2 may never develop antibodies. While antibodies to SARS-CoV-2 may provide some degree of immunity, at this time the strength and duration of the antibody response is unknown. ? ? Interpretation Result Comments:These interpretation comments are based upon all COVID-19 testing the patient has had at [facility], including molecular NAAT testing (more commonlyknown as PCR testing and Rapid ID Now testing) and antibody testing. It does not take into account any testing that a patient has had outside of the [facility] medical record. [facility] LABORATORY SERVICESCOVID KakdliwHWHP-EjX-4 Rapid ID NOW (no units) ? ? Date ? Value ? 05/30/2020 ? Not Detected ? [facility] SERVICESUnTexas [facility] MET[facility]OLIC [facility] (NA, K, CL, CO2, GLUCOSE, BUN, CREATININE, CA)2020-05-31 15:23:27 Test Item Value Reference Range Interpretation Comments NA (test code = 137 mmol/L 135-145 2050327889) K (test code = 4.0 mmol/L 3.5-5.0 5724482502) CL (test code = 105 mmol/L 98-108 7092523051) CO2 TOTAL (test code 27 mmol/L 23-31 = 0938397257) AGAP (test code = 2-16 0338135766) BUN (test code = 14 mg/dL 7-23 6554053065) GLUCOSE (test code = 92 mg/dL 70-110 9553946961) CREATININE (test code 0.72 mg/dL 0.50-1.04 = 7621895133) CALCIUM (test code = 8.8 mg/dL 8.6-10.6 0271824947) eGFR (test code = mL/min/1.73m2 7177414573) ANTHONY (test code = ANTHONY) Association of Glomerular Filtration Rate (GFR) and Staging of Kidney Disease* + + +- +| GFR (mL/min/1.73 m2) ?| With Kidney Damage ?| ?Without Kidney Damage+ ------+ ----+ ------+| ?>90 ?| ?Stage one ?| ? Normal ?+ -+ + -+| ?60-89 ?| ?Stage two ?| ? Decreased GFR ? + + +- +| ?30-59 ?| ?Stage three ?| ? Stage three ? + + +- +| ?15-29 ?| ?Stage four ? | ? Stage four ?+ -+ + -+| ?<15 (or dialysis) ? ?| ?Stage five ? | ? Stage five ?+ -+ + -+ *Each stage assumes the associated GFR level has been in effect for at least three months. ?Stages 1 to 5, with or without kidney disease, indicate chronic kidney disease. Notes: Determination of stages one and two (with eGFR >59mL/min/1.73 m2) requires estimation of kidney damage for at least three months as defined by structural or functional abnormalities of the kidney, manifested by either:Pathological abnormalities or Markers of kidney damage (including abnormalities in the composition of the blood or urine or abnormalities in imaging tests). [facility] with Iviuhtrvqmnm2947-05-57 12:40:08 Test Item Value Reference Range Interpretation Comments WBC (test code = See_Comment [Automated 6690-2) message] The sy stem which generated this result transmitted reference range : 4.30 - 11.10 10*3/?L. The reference range was not used to interpret this result as normal/abnormal . RBC (test code = See_Comment L [Automated 789-8) message] The sy stem which generated this result transmitted reference range : 3.93 - 5.25 10*6/?L. The reference range was not used to interpret this result as normal/abnormal . HGB (test code = 9.7 g/dL 11.6-15.0 L 718-7) HCT (test code = 29.7 % 35.7-45.2 L 4544-3) MCV (test code = 99.0 fL 80.6-95.5 H 787-2) MCH (test code = 32.3 pg 25.9-32.8 785-6) MCHC (test code = 32.7 g/dL 31.6-35.1 786-4) RDW-SD (test code = 51.6 fL 39.0-49.9 H 05981-1) RDW-CV (test code = 14.3 % 12.0-15.5 788-0) PLT (test code = See_Comment [Automated 777-3) message] The sy stem which generated this result transmitted reference range : 166 - 358 10*3/ ?L. The reference r miky was not used to interpret this result as normal/abnormal . MPV (test code = 10.0 fL 9.5-12.9 17205-0) NRBC/100 WBC (test See_Comment [Automat ed code = 7644880763) message] The system which generated this result transmitted reference range : 0.0 - 10.0 /100 WBCs. The refer ence range was not u sed to interpret th is result as normal/abnormal . NRBC x10^3 (test code <0.01 See_Comment [Auto mated = 0251908090) message] The s ystem which generated this result transmitted reference range : 10*3/?L. The reference range was not used to interpret this result as normal/abnormal . GRAN MAT (NEUT) % 40.2 % (test code = 770-8) IMM GRAN % (test code 0.40 % = 0465724030) LYMPH % (test code = 47.8 % 736-9) MONO % (test code = 10.5 % 5905-5) EOS % (test code = 0.9 % 713-8) BASO % (test code = 0.2 % 706-2) GRAN MAT x10^3(ANC) 2.15 10*3/uL 1.88-7.09 (test code = 0337804264) IMM GRAN x10^3 (test <0.03 0.00-0.06 code = 3276354724) LYMPH x10^3 (test code 2.55 10*3/uL 1.32-3.29 = 731-0) MONO x10^3 (test code 0.56 10*3/uL 0.33-0.92 = 742-7) EOS x10^3 (test code = 0.05 10*3/uL 0.03-0.39 711-2) BASO x10^3 (test code <0.03 0.01-0.07 = 704-7) Lab Interpretation Abnormal (test code = 88934-7) [facility] [id number] 21:54:53 1. ?Nonobstructive left nephrolithiasis. No striated nephrograms to suggestpyelonephritis. Correlate clinically. 2. ?Status post cholecystectomy and hysterectomy. 3. 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 Correlate with biliary laboratory values. Preliminary Report Dictated by Resident: Reno Morillo ?MD Karen., have reviewed this study andagree with theabove report.EXAM: CT ABDOMEN/PELVIS WITH AND WITHOUT CONTRAST HISTORY: ?Flank pain, kidney stone suspected Pyelonephritis, complicated ? COMPARISON: None. TECHNIQUE AND FINDINGS: Contiguo us axial imaging from the level of the lungbases through the proximal thighs was performed before and after theuncomplicated administration of 100 mL of intravenous contrast. Coronal andsagittal reconstructions were obtained. ?Auto mA and/or iterativereconstruction were used to reduce radiation dose. FINDINGS: LOWER THORAX: Subcentimeter calcified granuloma within the left lower lobe. LIVER: No focalhepatic lesions. Normal liver contour. GALLBLADDER AND BILIARY TREE: Status post cholecystectomy with prominentcommon bile duct consistent with postcholecystectomy reservoir phenomena.No radiopaque filling defects within the CBD. SPLEEN: No splenomegaly. PANCREAS: No ductal dilation or masses. ADRENAL GLANDS: No adrenal nodules. KIDNEYS: Bilateral symmetrical enhancement. No hydronephrosis or mass.Nonobstructive left kidney calculi scattered throughout the upper and lowerrenal poles measuring measuring up to 5 mm (total of 4 or 5 calculi). GI TRACT: No abnormal bowel dilation or wall thickening. Normal appendix. PELVIS/BLADDER: Status post hysterectomy. The urinary bladder is partiallydecompressed. No radiopaque urinary bladder calculi. PERITONEUM AND RETROPERITONEUM: No free air or fluid. LYMPH NODES: No lymphadenopathy. VESSELS: Unremarkable. BONES AND SOFT TISSUES: No suspicious lytic or sclerotic bony lesions. Tinybilateral pars defects at L4 and L5 with minimal grade 1 anterolisthesis ofL5on S1 and L4 on L5. Tiny fat-containing umbilical hernia. [facility], Radiant Results Inft User - 05/30/2020 4:55 PM CDTEXAM: CT ABDOMEN/PELVIS WITH AND WITHOUT CONTRASTHISTORY: Flank pain, kidney stone suspected Pyelonephritis, complicated COMPARISON: None.TECHNIQUE AND FINDINGS: Contiguous axial imaging from the level of the lungbases through the proximal thighs was performed before and after theuncomplicated administration of 100 mL of intravenous contrast. Coronal andsagittal reconstructions were obtained. Auto mA and/or iterativereconstruction were used to reduce radiation dose.FINDINGS:LOWER THORAX: Subcentimeter calcified granuloma within the left lower lobe.LIVER: No focal hepatic lesions. Normal liver contour.GALLBLADDER AND BILIARY TREE: Status post cholecystectomy with prominentcommon bile duct consistent with postcholecystectomy reservoir phenomena.No radiopaque filling defects within the CBD.SPLEEN: No splenomegaly.PANCREAS: No ductal dilation or masses.ADRENAL GLANDS: No adrenal nodules.KIDNEYS: Bilateral symmetrical enhancement. No hydronephrosis or mass.Nonobstructive left kidneycalculi scattered throughout the upper and lowerrenal poles measuring measuring up to 5 mm (total of4 or 5 calculi).GI TRACT: No abnormal bowel dilation or wall thickening. Normal appendix.PELVIS/BLADDER: Status post hysterectomy. The urinary bladder is partiallydecompressed. No radiopaque urinary bladder calculi.PERITONEUM AND RETROPERITONEUM: No free air or fluid.LYMPH NODES: No lymphadenopathy.VESSELS: Unremarkable.BONES AND SOFT TISSUES: No suspicious lytic or sclerotic bony lesions. Tinybilateral pars defects at L4 and L5 with minimal grade 1 anterolisthesis ofL5 on S1 and L4 on L5.Tiny fat-containing umbilical hernia.IMPRESSION1. Nonobstructive left nephrolithiasis. No striated nephrogramsto suggestpyelonephritis. Correlate clinically.2. Status post cholecystectomy and hysterectomy.3. Dilated appearance of CBD is likely related to reservoir phenomenon,similar prior. Correlate with biliary laboratory values.Preliminary Report Dictated by Resident: Toña Segovia, Reno Jones MD., have reviewed this study and agree with theabove report. [facility]ID [facility]2020-05-30 20:50:01 Test Item Value Reference Range Interpretation Comments SARS-CoV-2 Rapid ID NOW Not Detected Not Detected (test code = 60925-2) ANTHONY (test code = ANTHONY) ID NOW COVID-19 Assay is an isothermal nucleic acid amplification test intended for the qualitative detection of nucleic acid from SARS-CoV-2 viral RNA in nasopharyngeal (REPORT CHECKER) specimens. It is used under Emergency Use Authorization (EUA) by FDA. The limit of detection (LOD) of the assay is 125 Genome Equivalents/mL. A positive result is indicative of the presence of SARS-CoV-2 RNA. ?Clinical correlation with patient history and other diagnostic information is necessary to determine patient infection status. A negative (Not Detected) result does not preclude SARS-CoV-2 infection. In patients with clinical symptoms and other tests that are consistent with SARS-CoV-2 infection, negative results should be treated as presumptive negative and a new specimen should be tested with alternative PCR molecular test. Invalid: Please collect a new specimen for repeat patient testing if clinically indicated. Lab Interpretation Normal (test code = 03665-3) [facility] Metabolic Panel (NA, K, CL, CO2, GLUCOSE, BUN, CREATININE, CA)2020-05-30 20:40:22 Test Item Value Reference Range Interpretation Comments NA (test code = 139 mmol/L 135-145 0099522735) K (test code = 4.0 mmol/L 3.5-5.0 5268415570) CL (test code = 105 mmol/L 98-108 7444605474) CO2 TOTAL (test code 25 mmol/L 23-31 = 6390218792) AGAP (test code = 2-16 1986965667) BUN (test code = 18 mg/dL 7-23 8806131841) GLUCOSE (test code = 100 mg/dL 70-110 3038401788) CREATININE (test code 0.66 mg/dL 0.50-1.04 = 0723510372) CALCIUM (test code = 9.2 mg/dL 8.6-10.6 0161946635) eGFR (test code = mL/min/1.73m2 4870128455) ANTHONY (test code = ANTHONY) Association of Glomerular Filtration Rate (GFR) and Staging of Kidney Disease* + + +- +| GFR (mL/min/1.73 m2) ?| With Kidney Damage ?| ?Without Kidney Damage+ ------+ ----+ ------+| ?>90 ?| ?Stage one ?| ? Normal ?+ -+ + -+| ?60-89 ?| ?Stage two ?| ? Decreased GFR ? + + +- +| ?30-59 ?| ?Stage three ?| ? Stage three ? + + +- +| ?15-29 ?| ?Stage four ? | ? Stage four ?+ -+ + -+| ?<15 (or dialysis) ? ?| ?Stage five ? | ? Stage five ?+ -+ + -+ *Each stage assumes the associated GFR level has been in effect for at least three months. ?Stages 1 to 5, with or without kidney disease, indicate chronic kidney disease. Notes: Determination of stages one and two (with eGFR >59mL/min/1.73 m2) requires estimation of kidney damage for at least three months as defined by structural or functional abnormalities of the kidney, manifested by either:Pathological abnormalities or Markers of kidney damage (including abnormalities in the composition of the blood or urine or abnormalities in imaging tests). [facility] (ALB, T.PRO, BILI T, BU/BC, ALT, AST, ALK PHOS)2020-05-30 20:40:22 Test Item Value Reference Range Interpretation Comments TOTAL BILI (test code = 8382702067) 0.4 mg/dL 0.1-1.1 BILI UNCON (test code = 1424085006) 0.2 mg/dL 0.1-1.1 BILI CONJ (test code = 1415493166) 0.0 mg/dL 0.0-0.3 T PROTEIN (test code = 8528069630) 7.7 g/dL 6.3-8.2 ALBUMIN (test code = 4592082540) 4.6 g/dL 3.5-5.0 ALK PHOS (test code = 0933443961) 158 U/L 34-122 H ALTv (test code = 1742-6) 70 U/L 5-35 H AST(SGOT) (test code = 5686704438) 46 U/L 13-40 H Lab Interpretation (test code = Abnormal 19350-6) [facility] 20:37:21 Test Item Value Reference Range Interpretation Comments APTT Patient (test See_Comment [Automat ed code = 3173-2) message] The system which generated this result transmitted reference range : 23 - 38 Seconds . The reference range was not used to interpr et this result as normal/abnormal . ANTHONY (test code = ANTHONY) The [facility] patient population mean normal value for aPTT is 30 seconds. Lab Interpretation Normal (test code = 03519-4) [facility] HospitalProthrombin Time (PT) / [id number] 20:35:00 Test Item Value Reference Range Interpretation Comments PROTIME PATIENT (test See_Comment [Auto mated message] code = 5964-2) The system wh ich generated this result transmitted ref erence range: 12.0 - 1 4.7 Seconds. The re ference range was not u sed to interpret this result as normal/abnor mal. INR (test code = 6301-6) Nor mal INR <1.1; Warfarin Therap eutic range 2.0 to 3. 0 or 2.5 to 3.5, dep ending upon the indica tions. Lab Interpretation (test Normal code = 61829-6) [facility] HospitalUrinalysis2021-04-18 20:34:10 Test Item Value Reference Range Interpretation Comments APPEARANCE (test code = Clear Clear 2392555180) COLOR (test code = Yellow Yellow 3534536608) PH (test code = 4.8-8.0 4553827758) SP GRAVITY (test code = 1.003-1.030 2349971179) GLU U QUAL (test code = Normal Normal 1220214810) BLOOD (test code = Negative Negative 1056801972) KETONES (test code = Negative Negative 0509566559) PROTEIN (test code = Negative Negative 2887-8) UROBILIN (test code = Normal Normal 6170007484) BILIRUBIN (test code = Negative Negative 8078266597) NITRITE (test code = Negative Negative 2543847764) LEUK MURRAY (test code = 25/uL Negative A 5895326888) RBC/HPF (test code = See_Comment [Autom ated message] 1718250182) The system [employer] generated this result transmitted ref erence range: 0 - 3 HP F. The reference range was not used to int erpret this result as normal/abnormal . WBC/HPF (test code = See_Comment [Autom ated message] 5484895053) The system [employer] generated this result transmitted ref erence range: 0 - 5 HP F. The reference range was not used to int erpret this result as normal/abnormal . BACTERIA (test code = Few Negative A 3240283837) MUCOUS (test code = Slight Negative LPF A 2346311646) SQ EPITH (test code = HPF 0109734131) Lab Interpretation (test Abnormal code = 86034-1) [facility] with Ejogdwdrqobf8343-87-13 20:27:23 Test Item Value Reference Range Interpretation Comments WBC (test code = See_Comment [Automated 2090-2) message] The sy stem which generated this result transmitted reference range : 4.30 - 11.10 10*3/?L. The reference range was not used to interpret this result as normal/abnormal . RBC (test code = See_Comment L [Automated 339-8) message] The sy stem which generated this result transmitted reference range : 3.93 - 5.25 10*6/?L. The reference range was not used to interpret this result as normal/abnormal . HGB (test code = 10.6 g/dL 11.6-15.0 L 718-7) HCT (test code = 32.1 % 35.7-45.2 L 4544-3) MCV (test code = 97.3 fL 80.6-95.5 H 787-2) MCH (test code = 32.1 pg 25.9-32.8 785-6) MCHC (test code = 33.0 g/dL 31.6-35.1 786-4) RDW-SD (test code = 49.6 fL 39.0-49.9 70191-1) RDW-CV (test code = 14.1 % 12.0-15.5 788-0) PLT (test code = See_Comment [Automated 777-3) message] The sy stem which generated this result transmitted reference range : 166 - 358 10*3/ ?L. The reference r miky was not used to interpret this result as normal/abnormal . MPV (test code = 9.7 fL 9.5-12.9 08147-0) NRBC/100 WBC (test See_Comment [Automat ed code = 3555550087) message] The system which generated this result transmitted reference range : 0.0 - 10.0 /100 WBCs. The refer ence range was not u sed to interpret th is result as normal/abnormal . NRBC x10^3 (test code <0.01 See_Comment [Auto mated = 3781053640) message] The s ystem which generated this result transmitted reference range : 10*3/?L. The reference range was not used to interpret this result as normal/abnormal . GRAN MAT (NEUT) % 49.6 % (test code = 770-8) IMM GRAN % (test code 0.30 % = 4802076206) LYMPH % (test code = 38.7 % 736-9) MONO % (test code = 10.4 % 5905-5) EOS % (test code = 0.8 % 713-8) BASO % (test code = 0.2 % 706-2) GRAN MAT x10^3(ANC) 3.26 10*3/uL 1.88-7.09 (test code = 6131098588) IMM GRAN x10^3 (test <0.03 0.00-0.06 code = 9845160901) LYMPH x10^3 (test code 2.54 10*3/uL 1.32-3.29 = 731-0) MONO x10^3 (test code 0.68 10*3/uL 0.33-0.92 = 742-7) EOS x10^3 (test code = 0.05 10*3/uL 0.03-0.39 711-2) BASO x10^3 (test code <0.03 0.01-0.07 = 704-7) Lab Interpretation Abnormal (test code = 08600-3) [facility] HospitalLactic Acid Whole Ykdgm6736-02-55 20:24:41 Test Item Value Reference Range Interpretation Comments LACTIC ACID (test code = 1.17 mmol/L 0.50-2.20 7604424807) Lab Interpretation (test code = Normal 58038-8) [facility]inalysis2021-04-15 00:29:10 Test Item Value Reference Range Interpretation Comments APPEARANCE (test code = Clear Clear 4743859673) COLOR (test code = Yellow Yellow 4513319665) PH (test code = 4.8-8.0 5797000327) SP GRAVITY (test code = 1.003-1.030 1161419509) GLU U QUAL (test code = Normal Normal 0632200966) BLOOD (test code = Negative Negative 2606796611) KETONES (test code = Negative Negative 7120614494) PROTEIN (test code = Negative Negative 2887-8) UROBILIN (test code = Normal Normal 3261232383) BILIRUBIN (test code = Negative Negative 0823249932) NITRITE (test code = Negative Negative 3326080497) LEUK MURRAY (test code = 25/uL Negative A 7329768041) RBC/HPF (test code = See_Comment [Autom ated message] 5327391277) The system [employer] generated this result transmitted ref erence range: 0 - 3 HP F. The reference range was not used to int erpret this result as normal/abnormal . WBC/HPF (test code = See_Comment H [Autom ated message] 4393257797) The system [employer] generated this result transmitted ref erence range: 0 - 5 HP F. The reference range was not used to int erpret this result as normal/abnormal . BACTERIA (test code = Few Negative A 7199877652) MUCOUS (test code = Slight Negative LPF A 2439980186) SQ EPITH (test code = HPF 5057942142) Lab Interpretation (test Abnormal code = 47698-6) [facility] Metabolic Panel (NA, K, CL, CO2, GLUCOSE, BUN, CREATININE, CA)2020-05-26 23:56:22 Test Item Value Reference Range Interpretation Comments NA (test code = 140 mmol/L 135-145 3332781030) K (test code = 3.8 mmol/L 3.5-5.0 4432876194) CL (test code = 104 mmol/L 98-108 1945131051) CO2 TOTAL (test code 27 mmol/L 23-31 = 6779997811) AGAP (test code = 2-16 4311057175) BUN (test code = 15 mg/dL 7-23 7555617887) GLUCOSE (test code = 95 mg/dL 70-110 5173272921) CREATININE (test code 0.60 mg/dL 0.50-1.04 = 4664836128) CALCIUM (test code = 9.0 mg/dL 8.6-10.6 7884864939) eGFR (test code = mL/min/1.73m2 5515691529) ANTHONY (test code = ANTHONY) Association of Glomerular Filtration Rate (GFR) and Staging of Kidney Disease* + + +- +| GFR (mL/min/1.73 m2) ?| With Kidney Damage ?| ?Without Kidney Damage+ ------+ ----+ ------+| ?>90 ?| ?Stage one ?| ? Normal ?+ -+ + -+| ?60-89 ?| ?Stage two ?| ? Decreased GFR ? + + +- +| ?30-59 ?| ?Stage three ?| ? Stage three ? + + +- +| ?15-29 ?| ?Stage four ? | ? Stage four ?+ -+ + -+| ?<15 (or dialysis) ? ?| ?Stage five ? | ? Stage five ?+ -+ + -+ *Each stage assumes the associated GFR level has been in effect for at least three months. ?Stages 1 to 5, with or without kidney disease, indicate chronic kidney disease. Notes: Determination of stages one and two (with eGFR >59mL/min/1.73 m2) requires estimation of kidney damage for at least three months as defined by structural or functional abnormalities of the kidney, manifested by either:Pathological abnormalities or Markers of kidney damage (including abnormalities in the composition of the blood or urine or abnormalities in imaging tests). [facility] (ALB, T.PRO, BILI T, BU/BC, ALT, AST, ALK PHOS)2020-05-26 23:55:42 Test Item Value Reference Range Interpretation Comments TOTAL BILI (test code = 8506281170) 0.3 mg/dL 0.1-1.1 BILI UNCON (test code = 1550432926) 0.2 mg/dL 0.1-1.1 BILI CONJ (test code = 6850454640) 0.0 mg/dL 0.0-0.3 T PROTEIN (test code = 3843608696) 7.5 g/dL 6.3-8.2 ALBUMIN (test code = 5821767728) 4.5 g/dL 3.5-5.0 ALK PHOS (test code = 3507236001) 165 U/L 34-122 H ALTv (test code = 1742-6) 110 U/L 5-35 H AST(SGOT) (test code = 2877144629) 66 U/L 13-40 H Lab Interpretation (test code = Abnormal 99325-8) [facility]CBC with Elxucbqeoxij7942-48-14 23:42:55 Test Item Value Reference Range Interpretation Comments WBC (test code = See_Comment [Automated 2214-2) message] The sy stem which generated this result transmitted reference range : 4.30 - 11.10 10*3/?L. The reference range was not used to interpret this result as normal/abnormal . RBC (test code = See_Comment L [Automated 019-8) message] The sy stem which generated this result transmitted reference range : 3.93 - 5.25 10*6/?L. The reference range was not used to interpret this result as normal/abnormal . HGB (test code = 10.3 g/dL 11.6-15.0 L 718-7) HCT (test code = 31.0 % 35.7-45.2 L 4544-3) MCV (test code = 96.3 fL 80.6-95.5 H 787-2) MCH (test code = 32.0 pg 25.9-32.8 785-6) MCHC (test code = 33.2 g/dL 31.6-35.1 786-4) RDW-SD (test code = 48.4 fL 39.0-49.9 40917-2) RDW-CV (test code = 13.6 % 12.0-15.5 788-0) PLT (test code = See_Comment [Automated 777-3) message] The sy stem which generated this result transmitted reference range : 166 - 358 10*3/ ?L. The reference r miky was not used to interpret this result as normal/abnormal . MPV (test code = 9.8 fL 9.5-12.9 88570-6) NRBC/100 WBC (test See_Comment [Automat ed code = 8632294597) message] The system which generated this result transmitted reference range : 0.0 - 10.0 /100 WBCs. The refer ence range was not u sed to interpret th is result as normal/abnormal . NRBC x10^3 (test code <0.01 See_Comment [Auto mated = 4704192657) message] The s ystem which generated this result transmitted reference range : 10*3/?L. The reference range was not used to interpret this result as normal/abnormal . GRAN MAT (NEUT) % 61.8 % (test code = 770-8) IMM GRAN % (test code 0.70 % = 7914097823) LYMPH % (test code = 27.3 % 736-9) MONO % (test code = 9.0 % 5905-5) EOS % (test code = 1.0 % 713-8) BASO % (test code = 0.2 % 706-2) GRAN MAT x10^3(ANC) 5.01 10*3/uL 1.88-7.09 (test code = 3266286288) IMM GRAN x10^3 (test 0.06 10*3/uL 0.00-0.06 code = 6677802442) LYMPH x10^3 (test code 2.22 10*3/uL 1.32-3.29 = 731-0) MONO x10^3 (test code 0.73 10*3/uL 0.33-0.92 = 742-7) EOS x10^3 (test code = 0.08 10*3/uL 0.03-0.39 711-2) BASO x10^3 (test code <0.03 0.01-0.07 = 704-7) Lab Interpretation Abnormal (test code = 77496-3) [facility]ysis[facility] 19:25:57 Test Item Value Reference Range Interpretation Comments APPEARANCE (test code = Clear Clear 4594343797) COLOR (test code = Yellow Yellow 6992153668) PH (test code = 4.8-8.0 6103712140) SP GRAVITY (test code = >1.060 1.003-1.030 H 9900910238) GLU U QUAL (test code = Normal Normal 3232019170) BLOOD (test code = Negative Negative 0235404906) KETONES (test code = Negative Negative 6777448055) PROTEIN (test code = Negative Negative 2887-8) UROBILIN (test code = Normal Normal 7374663225) BILIRUBIN (test code = Negative Negative 5160703594) NITRITE (test code = Negative Negative 6316009827) LEUK MURRAY (test code = 25/uL Negative A 4981668982) RBC/HPF (test code = See_Comment [Autom ated message] 1434131861) The system [employer] generated this result transmitted ref erence range: 0 - 3 HP F. The reference range was not used to int erpret this result as normal/abnormal . WBC/HPF (test code = See_Comment [Autom ated message] 0655880749) The system [employer] generated this result transmitted ref erence range: 0 - 5 HP F. The reference range was not used to int erpret this result as normal/abnormal . BACTERIA (test code = Few Negative A 5399634129) MUCOUS (test code = Slight Negative LPF A 9070967967) SQ EPITH (test code = HPF 3699549111) Lab Interpretation (test Abnormal code = 78605-7) [facility] W [id number] 17:38:50CT Abdomen and Pelvis with intravenous contrast. CLINICAL HISTORY: Acute generalized abdominal pain.DOSE: Up-to-date CT equipment and radiation dose reduction techniques wereemployed. CTDIvol: 7.70 mGy. DLP: 371 mGy-cm. TECHNIQUE : Contiguous axial imaging from the level of the lung basesthrough the pubic symphysis were performed after the uncomplicatedadministration of Omnipaque contrast material.?Coronal and sagittalreconstructions were obtained. Auto mA and/or iterative reconstruction wereusedto reduce radiation dose. FINDINGS: Comparison is made with ultrasound study of 12/08/2019 as well asCT studies of 12/08/2019. Lower lungs: Clear. No pleural effusion or pericardial effusion. Nodefinite signs of hiatal hernia. Liver, Gallbladder and Spleen: Liver measures approximately 14.9 cm andspleen measures 9.6 x 3 cm in size. No focal lesions detected in the liveror in the spleen. Cholecystectomy noted. The limited bile ducts are seen inboth intrahepatic as well as extrahepatic ducts with common bile ductmeasuring up to 10-12 mm. Pancreatic duct is not dilated. Peritoneum: ?No free air or free fluid. No lymphadenopathy. Pancreas and Adrenals: ?Unremarkable pancreas and adrenal glands. Kidneys and Ureters: 2 and possibly third nonobstructing 2 to 3 mm stonesnoted in the left kidney. No stones are seen in the right kidney. Nohydroureter or hydronephrosis. Vessels: Normal. Patent hepatic/portal venous systems and renal veins. Retroperitoneum: No abnormal fluid or lymphadenopathy. Bowel: No acute findings. Normal appendix is visualized. Bladder and Reproductive Organs: S/P hysterectomy. Urinary bladder isincompletely distended and unopacified. Bones: Exaggerated lumbar lordosis, grade 1 spondylolisthesis at L4-L5 aswell as L5-S1 with bilateral spondylolysis of L4 and L5. Soft tissues: Unremarkable. CONCLUSION:1. No acute intra-abdominal or pelvic abnormalities detected.2. S/P cholecystectomy and hysterectomy. Dilated intrahepatic andextrahepatic bile ducts could be secondary to cholecystectomy and/orampullary stenosis. Pancreatic duct is of normal size.3. 2 and possibly 3 nonobstructing stones in the left kidney, eachmeasuring 2 to 3 mm in size. [facility], Radiant Results Inft User - 05/13/2020 12:39 PM CDTCT Abdomen and Pelvis with intravenous contrast.CLINICAL HISTORY: Acute generalized abdominal pain.DOSE: Up-to-date CT equipment and radiation dose reduction techniques wereemployed. CTDIvol: 7.70 mGy. DLP: 371 mGy-cm.TECHNIQUE : Contiguous axial imaging from the level of the lung basesthrough the pubic symphysis were performed after the uncomplicatedadministration of Omnipaque c ontrast material. Coronal and sagittalreconstructions were obtained. Auto mA and/or iterative reconstruction wereused to reduce radiation dose.FINDINGS: Comparison is made with ultrasound study of 12/08/2019 as well asCT studies of 12/08/2019.Lower lungs: Clear. No pleural effusion or pericardial effusion. Nodefinite signs of hiatal hernia.Liver, Gallbladder and Spleen: Liver measures approximately 14.9 cm andspleen measures 9.6 x 3 cm in size. No focal lesions detected in the liveror in the spleen. Cholecystectomy noted. The limited bile ducts are seen inboth intrahepatic as well as extrahepatic ducts with common bile ductmeasuring up to 10-12 mm. Pancreatic duct is not dilated.Peritoneum: No free air or free fluid. No lymphadenopathy.Pancreas and Adrenals: Unremarkable pancreas and adrenal glands.Kidneys and Ureters: 2 and possibly third nonobstructing 2 to 3 mm stonesnoted in the left kidney. No stones are seen in the right kidney. Nohydroureter or hydronephrosis. Vessels: Normal. Patenthepatic/portal venous systems and renal veins.Retroperitoneum: No abnormal fluid or lymphadenopathy.Bowel: No acute findings. Normal appendix is visualized.Bladder and Reproductive Organs: S/P hysterectomy. Urinary bladder isincompletely distended and unopacified.Bones: Exaggerated lumbar lordosis, gra de 1 spondylolisthesis at L4-L5 aswell as L5-S1 with bilateral spondylolysis of L4 and L5.Soft tissues: Unremarkable.CONCLUSION:1. No acute intra-abdominal or pelvic abnormalities detected.2. S/P cholecystectomy and hysterectomy. Dilated intrahepatic andextrahepatic bile ducts could be secondary to cholecystectomy and/orampullary stenosis. Pancreatic duct is of normal size.3. 2 and possibly 3 nonobstructing stones in the left kidney, eachmeasuring 2 to 3 mm in size. [facility] (ALB, T.PRO, BILI T, BU/BC, ALT, AST, ALK PHOS)2020-05-13 17:24:50 Test Item Value Reference Range Interpretation Comments TOTAL BILI (test code = 2768626930) 0.5 mg/dL 0.1-1.1 BILI UNCON (test code = 9512534847) 0.2 mg/dL 0.1-1.1 BILI CONJ (test code = 8576163902) 0.0 mg/dL 0.0-0.3 T PROTEIN (test code = 4155255867) 8.0 g/dL 6.3-8.2 ALBUMIN (test code = 4542987584) 4.7 g/dL 3.5-5.0 ALK PHOS (test code = 7753366247) 142 U/L 34-122 H ALTv (test code = 1742-6) 29 U/L 5-35 AST(SGOT) (test code = 3239153498) 41 U/L 13-40 H Lab Interpretation (test code = Abnormal 94893-4) [facility] (NA, K, CL, CO2, GLUCOSE, BUN, CREATININE, CA)2020-05-13 17:24:49 Test Item Value Reference Range Interpretation Comments NA (test code = 139 mmol/L 135-145 9611445417) K (test code = 3.9 mmol/L 3.5-5.0 0667744748) CL (test code = 111 mmol/L 98-108 H 9972409550) CO2 TOTAL (test code = 19 mmol/L 23-31 L 8027039273) AGAP (test code = 2-16 6570721098) BUN (test code = 15 mg/dL 7-23 7367712474) GLUCOSE (test code = 123 mg/dL 70-110 H 6916553778) CREATININE (test code = 0.83 mg/dL 0.50-1.04 8396046636) CALCIUM (test code = 9.5 mg/dL 8.6-10.6 1713389071) eGFR (test code = mL/min/1.73m2 8178313123) ANTHONY (test code = ANTHONY) Association of Glomerular Filtration Rate (GFR) and Staging of Kidney Disease* + --+ --+ ------+| GFR (mL/min/1.73 m2) ?| With Kidney Damage ?| ?Without Kidney Damage+ --------+ --------+ +| ?>90 ?| ?Stage one ?| ? Normal ?+ ---+ ---+ -------+| ?60-89 ?| ?Stage two ?| ? Decreased GFR ? + --+ --+ ------+| ?30-59 ?| ?Stage three ?| ? Stage three ? + --+ --+ ------+| ?15-29 ?| ?Stage four ? | ? Stage four ?+ ---+ ---+ -------+| ?<15 (or dialysis) ? ?| ?Stage five ? | ? Stage five ?+ ---+ ---+ -------+ *Each stage assumes the associated GFR level has been in effect for at least three months. ?Stages 1 to 5, with or without kidney disease, indicate chronic kidney disease. Notes: Determination of stages one and two (with eGFR >59mL/min/1.73 m2) requires estimation of kidney damage for at least three months as defined by structural or functional abnormalities of the kidney, manifested by either:Pathological abnormalities or Markers of kidney damage (including abnormalities in the composition of the blood or urine or abnormalities in imaging tests). Lab Interpretation Abnormal (test code = 69206-4) [facility] HospitalLipase [id number] 17:24:49 Test Item Value Reference Range Interpretation Comments LIPASE (test code = 5486323588) 25 U/L 0-220 Lab Interpretation (test code = Normal 22692-5) [facility] HospitalCB with [id number] 17:06:22 Test Item Value Reference Range Interpretation Comments WBC (test code = See_Comment [Automated 0249-2) message] The sy stem which generated this result transmitted reference range : 4.30 - 11.10 10*3/?L. The reference range was not used to interpret this result as normal/abnormal . RBC (test code = See_Comment L [Automated 056-8) message] The sy stem which generated this result transmitted reference range : 3.93 - 5.25 10*6/?L. The reference range was not used to interpret this result as normal/abnormal . HGB (test code = 12.0 g/dL 11.6-15.0 718-7) HCT (test code = 35.3 % 35.7-45.2 L 4544-3) MCV (test code = 95.1 fL 80.6-95.5 787-2) MCH (test code = 32.3 pg 25.9-32.8 785-6) MCHC (test code = 34.0 g/dL 31.6-35.1 786-4) RDW-SD (test code = 46.4 fL 39.0-49.9 89931-7) RDW-CV (test code = 13.3 % 12.0-15.5 788-0) PLT (test code = See_Comment [Automated 777-3) message] The sy stem which generated this result transmitted reference range : 166 - 358 10*3/ ?L. The reference r miky was not used to interpret this result as normal/abnormal . MPV (test code = 10.4 fL 9.5-12.9 88067-5) NRBC/100 WBC (test See_Comment [Automat ed code = 9059851895) message] The system which generated this result transmitted reference range : 0.0 - 10.0 /100 WBCs. The refer ence range was not u sed to interpret th is result as normal/abnormal . NRBC x10^3 (test code <0.01 See_Comment [Auto mated = 9368035689) message] The s ystem which generated this result transmitted reference range : 10*3/?L. The reference range was not used to interpret this result as normal/abnormal . GRAN MAT (NEUT) % 69.6 % (test code = 770-8) IMM GRAN % (test code 0.40 % = 7936554124) LYMPH % (test code = 22.4 % 736-9) MONO % (test code = 7.1 % 5905-5) EOS % (test code = 0.4 % 713-8) BASO % (test code = 0.1 % 706-2) GRAN MAT x10^3(ANC) 5.65 10*3/uL 1.88-7.09 (test code = 3303543235) IMM GRAN x10^3 (test 0.03 10*3/uL 0.00-0.06 code = 2643083181) LYMPH x10^3 (test code 1.82 10*3/uL 1.32-3.29 = 731-0) MONO x10^3 (test code 0.58 10*3/uL 0.33-0.92 = 742-7) EOS x10^3 (test code = 0.03 10*3/uL 0.03-0.39 711-2) BASO x10^3 (test code <0.03 0.01-0.07 = 704-7) Lab Interpretation Abnormal (test code = 67683-3) [facility] ABDOMEN [id number] 18:12:20 Status post cholecystectomy. Mild extra hepatic biliary ductal dilatation can been expected findinginthe post cholecystectomy setting. RIGHT UPPER QUADRANT ABDOMINAL SONOGRAM TECHNIQUE: Grayscale and limited color Doppler images of the right upperquadrant of the abdomen were obtained. INDICATION:Right lower quadrant pain. COMPARISON: 12/08/2019 FINDINGS: Liver measures 14.2 cm in craniocaudal dimension. Essentially normalhepatic echogenicity and echotexture. No focal hepatic lesions identifiedto the extent visualized. Main portal vein is patent with normalhepatopedal flow. Main portal vein measures 1.1 cm in AP diameter at portahepatis. The common bile duct measures 7 mm in AP diameter at yen hepatis. Nodiscernible intrahepatic biliary ductal dilatation. Visualized portions of the right kidney appear unremarkable. Visualized portions of the pancreatic head and body appear unremarkable.Pancreatic tail is obscured by bowel gas. Proximal abdominal aorta measures 1.7 cm in AP diameter, normal. Noabnormal aneurysmal dilatation in the mid and distal aorta. [facility], Radiant Results Inft User - 12/08/2019 1:13 PM CDTRIGHT UPPER QUADRANT ABDOMINAL SONOGRAMTECHNIQUE: Grayscale and limited color Doppler images of the right upperquadrant of the abdomen were obtained.INDICATION: Right lower quadrant pain.COMPARISON: 12/08/2019FINDINGS:Liver measures 14.2 cm in craniocaudal dimension. Essentially normalhepatic echogenicity and echotexture. No focal hepatic lesions identifiedto the extent visualized. Main portal vein is patent with normalhepatopedal flow. Main portal vein measures 1.1 cm in AP diameter at portahepatis.The common bile duct measures 7 mm in AP diameter at yen hepatis. Nodiscernible intrahepatic biliary ductal dilatation.Visualized portions of the right kidney appear unremarkable.Visualized portions of the pancreatic head and body appear unremarkable.Pancreatic tail is obscured by bowel gas.Proximal abdominal aorta measures 1.7 cm in AP diameter, normal. Noabnormal aneurysmal di latation in the mid and distal aorta.IMPRESSIONStatus post cholecystectomy.Mild extra hepatic biliary ductal dilatation can been expected finding inthe post cholecystectomy setting.[facility] HospitalXR [facility] 1 VW 2019-12-08 18:03:08Findings and Impression: Clear lungs. No pleural effusion or pneumothorax.Heart size is normal. No acute osseous abnormality. PORTABLE CHEST RADIOGRAPH History: RUQ pain Comparison: 12/25/2018 TECHNIQUE: AP view of the chest. [facility], Radiant Results Inft User - 12/08/2019 1:04 PM CDTPORTABLE CHEST RADIOGRAPHHistory: RUQ pain Comparison: 12/25/2018TECHNIQUE: AP view of the chest.IMPRESSIONFindings and Impression: Clear lungs. No pleural effusion or pneumothorax.Heart size is normal. No acute osseousabnormality.[facility] HospitalCOMP. METABOLIC PANEL ([id number])2019-12-08 17:36:00 Test Item Value Reference Range Interpretation Comments NA (test code = 139 mmol/L 135-145 9986051976) K (test code = 4.2 mmol/L 3.5-5 7303798295) CL (test code = 102 mmol/L 98-108 4717626683) CO2 TOTAL (test code = 27 mmol/L 23-31 5612771578) AGAP (test code = 2-16 3944571133) BUN (test code = 20 mg/dL 7-23 7209402404) GLUCOSE (test code = 105 mg/dL 70-110 8952272788) CREATININE (test code = 1.01 mg/dL 0.5-1.04 8994205103) TOTAL BILI (test code = 0.6 mg/dL 0.1-1.0 0108810579) CALCIUM (test code = 9.9 mg/dL 8.6-10.6 1411560444) T PROTEIN (test code = 8.5 g/dL 6.3-8.2 H 7393319035) ALBUMIN (test code = 4.5 g/dL 3.5-5 6279768937) ALK PHOS (test code = 118 U/L 34-122 5816933813) ALTv (test code = 32 U/L 5-35 1742-6) AST(SGOT) (test code = 39 U/L 13-40 3986002498) eGFR Calculation mL/min/1.73m2 (Non-) (test code = 4001030512) eGFR Calculation mL/min/1.73m2 () (test code = 8779955149) ANTHONY (test code = ANTHONY) Association of Glomerular Filtration Rate (GFR) and Staging of Kidney Disease* + --+ --+ ------+| GFR (mL/min/1.73 m2) ?| With Kidney Damage ?| ?Without Kidney Damage+ --------+ --------+ +| ?>90 ?| ?Stage one ?| ? Normal ?+ ---+ ---+ -------+| ?60-89 ?| ?Stage two ?| ? Decreased GFR ? + --+ --+ ------+| ?30-59 ?| ?Stage three ?| ? Stage three ? + --+ --+ ------+| ?15-29 ?| ?Stage four ? | ? Stage four ?+ ---+ ---+ -------+| ?<15 (or dialysis) ? ?| ?Stage five ? | ? Stage five ?+ ---+ ---+ -------+ *Each stage assumes the associated GFR level has been in effect for at least three months. ?Stages 1 to 5, with or without kidney disease, indicate chronic kidney disease. Notes: Determination of stages one and two (with eGFR >59mL/min/1.73 m2) requires estimation of kidney damage for at least three months as defined by structural or functional abnormalities of the kidney, manifested by either:Pathological abnormalities or Markers of kidney damage (including abnormalities in the composition of the blood or urine or abnormalities in imaging tests). Lab Interpretation Abnormal (test code = 54824-9) [facility] HospitalURINALYSIS2020-10-26 17:20:00 Test Item Value Reference Range Interpretation Comments APPEARANCE (test code = Hazy Clear A 4143390245) COLOR (test code = Yellow Yellow 5711725598) PH (test code = 4.8-8.0 7532645884) SP GRAVITY (test code = 1.003-1.030 H 6368038300) GLU U QUAL (test code = Normal Normal 3366429060) BLOOD (test code = Negative Negative 8308601164) KETONES (test code = Negative Negative 7349830995) PROTEIN (test code = 30 mg/dL Negative A 2887-8) UROBILIN (test code = Normal Normal 8033291462) BILIRUBIN (test code = Negative Negative 3498250010) NITRITE (test code = Negative Negative 2410302885) LEUK MURRAY (test code = 75/uL Negative A 3359867436) RBC/HPF (test code = See_Comment [Autom ated message] 9869041021) The system [employer] generated this result transmitted ref erence range: 0 - 3 HP F. The reference range was not used to int erpret this result as normal/abnormal . WBC/HPF (test code = See_Comment [Autom ated message] 9873656645) The system [employer] generated this result transmitted ref erence range: 0 - 5 HP F. The reference range was not used to int erpret this result as normal/abnormal . BACTERIA (test code = Negative Negative 7833089432) MUCOUS (test code = Slight Negative LPF A 5152764946) SQ EPITH (test code = HPF 9706406630) HYAL CAST (test code = See_Comment [Aut omated message] 3100280733) The system [employer] generated this result transmitted ref erence range: <=2 LPF. The reference range was not used to int erpret this result as normal/abnormal . Lab Interpretation (test Abnormal code = 58329-9) [facility] WITH [id number] 17:05:00 Test Item Value Reference Range Interpretation Comments WBC (test code = See_Comment [Automated 0990-2) message] The sy stem which generated this result transmitted reference range : 4.30 - 11.10 10*3/?L. The reference range was not used to interpret this result as normal/abnormal . RBC (test code = See_Comment L [Automated 449-8) message] The sy stem which generated this result transmitted reference range : 3.93 - 5.25 10*6/?L. The reference range was not used to interpret this result as normal/abnormal . HGB (test code = 11.2 g/dL 11.6-15 L 718-7) HCT (test code = 34.5 % 35.7-45.2 L 4544-3) MCV (test code = 100.0 fL 80.6-95.5 H 787-2) MCH (test code = 32.5 pg 25.9-32.8 785-6) MCHC (test code = 32.5 g/dL 31.6-35.1 786-4) RDW-SD (test code = 43.5 fL 39-49.9 68644-2) RDW-CV (test code = 11.9 % 12-15.5 L 788-0) PLT (test code = See_Comment [Automated 777-3) message] The sy stem which generated this result transmitted reference range : 166 - 358 10*3/ ?L. The reference r miky was not used to interpret this result as normal/abnormal . MPV (test code = 10.9 fL 9.5-12.9 35616-9) NRBC/100 WBC (test See_Comment [Automat ed code = 0888591759) message] The system which generated this result transmitted reference range : 0.0 - 10.0 /100 WBCs. The refer ence range was not u sed to interpret th is result as normal/abnormal . NRBC x10^3 (test code <0.01 See_Comment [Auto mated = 5391675383) message] The s ystem which generated this result transmitted reference range : 10*3/?L. The reference range was not used to interpret this result as normal/abnormal . GRAN MAT (NEUT) % 64.8 % (test code = 770-8) IMM GRAN % (test code 0.40 % = 4849191768) LYMPH % (test code = 27.0 % 736-9) MONO % (test code = 6.5 % 5905-5) EOS % (test code = 0.9 % 713-8) BASO % (test code = 0.4 % 706-2) GRAN MAT x10^3(ANC) 4.35 10*3/uL 1.88-7.09 (test code = 1184128227) IMM GRAN x10^3 (test 0.03 10*3/uL 0-0.06 code = 4525868205) LYMPH x10^3 (test code 1.82 10*3/uL 1.32-3.29 = 731-0) MONO x10^3 (test code 0.44 10*3/uL 0.33-0.92 = 742-7) EOS x10^3 (test code = 0.06 10*3/uL 0.03-0.39 711-2) BASO x10^3 (test code 0.03 10*3/uL 0.01-0.07 = 704-7) Lab Interpretation Abnormal (test code = 04498-3) [facility]CT [facility] P[facility] WO [id number] 16:59:351. ?Nonobstructive left nephrolithiasis. 2. ?No radiographic findings to explain patient's abdominal or flank pain. 3. ?Partially visualized 4 mm solid nodule in the left lower lobe, thoughtto be unchanged.CT abdomen and pelvis without contrast REASON FOR STUDY: Flank pain, stone disease suspected COMPARISON: 06/24/2025 TECHNIQUE: Unenhanced multidetector axial CT images from lung bases throughpelvic inlet. As requested, no IV contrast was used. Coronal and sagittalMPR images also generated. INTRAVENOUS CONTRAST ADMINISTRATION: None. FINDINGS: Limited evaluation of abdominal and pelvic organs due to lack ofintravenous contrast. Lower chest: Partially visualized 4 mm nodule questionable calcificationwithin the left lower lobe (2:1). Hypoattenuating blood flow within the left lateral ventricle mayrepresentanemia. ABDOMEN AND PELVISLiver: Hepatic dome is not fully within [id number]. No focal he paticlesions identified within limits of unenhanced technique. Biliary Tract/GB: Status post cholecystectomy. Spleen: No splenomegaly. Pancreas: No pancreatic ductal dilatation. Punctate 2 to 3 mm calcificationat the pancreatic tail on 2:29. Adrenals: Within normal limits. Kidneys: Left kidney contains approximately 5-6 nonobstructive calculi withthe largest 2 within the left interpolar and upper pole regions measuring 5and 4 mm, respectively. No right nephrolithiasis. Hyperattenuating appearance ofbilateral pyramids. Bowel: No abnormal bowel dilatation or wall thickening. Normal appendix. Peritoneum: No pneumoperitoneum or free fluid. Vasculature: Within normal limits. Lymph Nodes: Within normallimits. ? Pelvic Organs: Urinary bladder is decompressed. Uterus is not visualized,presumably status post hysterectomy. Abdominal/Pelvic Wall: Evidence of scarring within theventralabdominal/pelvic wall. Tiny fat-containing umbilical hernia. BONES: Bilateral L4 and L5 pars d efects without appreciable listhesis. [facility], Radiant Results Inft User - 12/08/2019 12:00 PM CDTCT abdomen and pelvis without contrastREASON FOR STUDY: Flank pain, stone disease suspected COMPARISON: 06/24/2025TECHNIQUE: Unenhanced multidetector axial CT images from lung bases throughpelvic inlet. As requested, no IV contrast was used. Coronal and sagittalMPR images also generated.INTRAVENOUS CONTRAST ADMINISTRATION: None.FINDINGS: Limited evaluation of abdominal and pelvic organs due to lack ofintravenous contrast.Lower chest: Partially visualized 4 mm nodule questionable calcificationwithin the left lower lobe (2:1).Hypoattenuating blood flow within the left lateral ventricle may representanemia.ABDOMEN AND PELVISLiver: Hepatic dome is not fully within [id number]-vl-[id number]. No focal hepaticlesions identified within limits of unenhanced technique.Biliary Tract/GB: Status post cholecystectomy.Spleen: No s plenomegaly.Pancreas: No pancreatic ductal dilatation. Punctate 2 to 3 mm calcificationat the pancreatic tail on 2:29.Adrenals: Within normal limits.Kidneys: Left kidney contains approximately 5-6 nonobstructive calculi withthe largest 2 within the left interpolar and upper pole regions measuring 5and4 mm, respectively. No right nephrolithiasis.Hyperattenuating appearance of bilateral pyramids.Bowel: No abnormal bowel dilatation or wall thickening. Normal appendix.Peritoneum: No pneumoperitoneum orfree fluid.Vasculature: Within normal limits.Lymph Nodes: Within normal limits. Pelvic Organs: Urinary bladder is decompressed. Uterus is not visualized,presumably status post hysterectomy.Abdominal/Pelvic Wall: Evidence of scarring within the ventralabdominal/pelvic wall. Tiny fat-containing umbilical hernia.BONES: Bilateral L4 and L5 pars defects without appreciable listhesis.IMPRESSION1. Nonobstructive left nephrolithiasis. 2. No radiographic findings to explain patient's abdominal or flank pain.3. Partially visualized 4 mm solid nodule in the left lower lobe, thoughtto be unchanged.[facility] POCT [id number] 16:12:00 Test Item Value Reference Range Interpretation Comments POCT PREG (test code = 1605) negative On board controls acceptable with present C Line (test code = 3574) POCT PREG LOT # (test code = 3575) [id number] POCT PREG TEST DATE (test 05/12/2021 code = 3576) Lab Interpretation (test code = Normal 44684-9) [facility]PO[facility], [id number] 15:17:00 Test Item Value Reference Range Interpretation Comments POCT U SP GRAV (test code = 1.025 mg/dl 1.005-1.025 3255) POCT PH U (test code = 3254) 6.0 mg/dl 5-8 POCT U LEUK EST (test code = Trace Negative - Negative 3263) POCT U NIT (test code = 3262) Negative Negative - Negative POCT U PROT (test code = Negative Negative - Negative 3259) POCT U GLU (test code = 3256) Negative Negative - Negative POCT U KETONE (test code = Negative Negative - Negative 3258) POCT U UROBILI (test code = 0.2 mg/dl 0.2-1 3260) POCT U BILI (test code = Negative Negative - Negative 3261) POCT U BLD (test code = 3257) Negative Negative - Negative POCT U COLOR (test code = yellow 3266) POCT U APPEAR (test code = clear 3267) Lab Interpretation (test code Abnormal = 59934-3) [facility]PO[facility], [id number] 15:17:00 Test Item Value Reference Range Interpretation Comments POCT U SP GRAV (test code = 1.025 mg/dl 1.005-1.025 3255) POCT PH U (test code = 3254) 6.0 mg/dl 5-8 POCT U LEUK EST (test code = Trace Negative - Negative 3263) POCT U NIT (test code = 3262) Negative Negative - Negative POCT U PROT (test code = Negative Negative - Negative 3259) POCT U GLU (test code = 3256) Negative Negative - Negative POCT U KETONE (test code = Negative Negative - Negative 3258) POCT U UROBILI (test code = 0.2 mg/dl 0.2-1 3260) POCT U BILI (test code = Negative Negative - Negative 3261) POCT U BLD (test code = 3257) Negative Negative - Negative POCT U COLOR (test code = yellow 3266) POCT U APPEAR (test code = clear 3267) Lab Interpretation (test code Abnormal = 14261-1) [facility]MR, BRAIN, [id number] 19:53:00With seizure protocolThin coronal cuts especially around the temporal region.FINAL REPORT MRI Brain with and without contrast Clinical History: Seizure, nontraumatic (Age > 41y) Technique: MRI of the brain utilizing axial T1, T2, FLAIR, GRE, DWI, coronal T1, T2, FLAIR, sagittal T1. Postgadolinium axial and coronal T1-weighted images. Comparisons: NoneFindings: There is no evidence for focal cortical dysplasia or heterotopia. The hippocampal formations are symmetrical in size, shape, and signal intensity. Brain parenchyma is otherwise normal in morphology. No midline shift. No restricted diffusion to suggest recent ischemic insult. No abnormal susceptibility. No hydrocephalus. Orbits are within normal limits. No obstructive paranasal sinus disease. IMPRESSION: No anatomic etiology of seizure identified. Signed: Karen Shirley MDReport Verified Date/Time: 10/25/2018 19:53:41 Reading Location: [address] Neuro Reading Room EEG AWAKE AND [id number] 19:37:00For STAT EEG- after 5 PM weekdays, weekends and holidays, page the on-call EEG TechReason for exam:-& gt;altered mental statusDATE OF EXAMINATION: 10/25/18EE NO: [id number] 10: R56.9CPT CODE: [id number] SUMMARY:This is a digital EEG recorded with 32 input channels on a eSoft system and then reviewed with bipolar and referential montages using the modified combinatorial system nomenclature.TECHNICAL SUMMARY: Duringthe maximally awake state, a well- regulated, moderate amplitude occipital dominant rhythm of 9-10 Hzalpha is present bilaterally. More anteriorly, similar as well as faster frequencies of lower amplitudes are present, including low voltage 13-18 Hz beta in the anterior leads.Hyperventilation for 3 minutes is associated with a slight build up of slowing symmetrically.Photic stimulation across variousfrequencies of flickering does not significantly alter the backgroundWith drowsiness, the overall background amplitudes are relatively diminished, while increased amounts of diffuse 5-7 Hz theta and rhythmical slowing emerge. Further sleep architectures are not present.IMPRESSION: This is a normal EEGstudy, capturing the awake and drowsy states. There is no evidence for epileptiform abnormality, including absence of electrographic seizure.COMMENT: The absence of epileptiform abnormality does not necessarily preclude the clinical diagnosis of epilepsy or provoked seizure for the symptom(s) of interest. HEMOGLOBIN [id number] 14:02:00 Test Item Value Reference Range Interpretation Comments HEMOGLOBIN A1C (BEAKER) (test code = 5.6 % 4.3-6.1 368) TSH/FREE T4 IF [id number] 06:11:00 Test Item Value Reference Range Interpretation Comments THYROID STIMULATING HORMONE 3.63 uIU/mL 0.35-4.94 (BEAKER) (test code = 772) VITAMIN B12 AND [id number] 06:11:00 Test Item Value Reference Range Interpretation Comments VITAMIN B12 (BEAKER) (test code = 272 pg/mL 213-816 774) FOLATE (BEAKER) (test code = 362) 9.4 ng/mL >=7.0 [id number] 05:58:00 Test Item Value Reference Range Interpretation Comments PHOSPHORUS (BEAKER) (test code = 3.6 mg/dL 2.3-4.7 604) [id number] 05:58:00 Test Item Value Reference Range Interpretation Comments MAGNESIUM (BEAKER) (test code = 2.1 mg/dL 1.6-2.6 627) BASIC METABOLIC [id number] 05:58:00 Test Item Value Reference Range Interpretation Comments SODIUM (BEAKER) 139 meq/L 136-145 (test code = 381) POTASSIUM (BEAKER) 4.1 meq/L 3.5-5.1 (test code = 379) CHLORIDE (BEAKER) 109 meq/L 98-107 H (test code = 382) CO2 (BEAKER) (test 22 meq/L 22-29 code = 355) BLOOD UREA NITROGEN 20 mg/dL 7-21 (BEAKER) (test code = 354) CREATININE (BEAKER) 0.80 mg/dL 0.57-1.25 (test code = 358) GLUCOSE RANDOM 87 mg/dL 70-105 (BEAKER) (test code = 652) CALCIUM (BEAKER) 9.2 mg/dL 8.4-10.2 (test code = 697) EGFR (BEAKER) (test 78 mL/min/1.73 ESTIMA KARLY GFR IS code = 1092) sq m NOT ACCURATE CREATININE CLEARANCE IN PREDICTING GLOMERULAR FILTRATION RATE . ESTIMATED GFR I S NOT APPLICABLE FOR DIALYSIS PATIEN TS. LIPID [id number] 05:58:00 Test Item Value Reference Range Interpretation Comments TRIGLYCERIDES (BEAKER) (test code = 191 mg/dL 540) CHOLESTEROL (BEAKER) (test code = 256 mg/dL 631) HDL CHOLESTEROL (BEAKER) (test code 70 mg/dL = 976) LDL CHOLESTEROL CALCULATED (BEAKER) 148 mg/dL (test code = 633) Triglyceride Reference Range: Low Risk <150 Borderline 150-199 High Risk 200-499 Very High Risk >=500Cholesterol Reference Range: Low Risk <200 Borderline 200-239 High Risk >240HDL Cholesterol Reference Range: Low Risk >=60 High Risk <40LDL Cholesterol Reference Range: Optimal <100 Near Optimal 100-129 Borderline 130-159 High 160-189 Very High >=190HEPATIC FUNCTION [id number] 05:58:00 Test Item Value Reference Range Interpretation Comments TOTAL PROTEIN (BEAKER) (test code = 7.7 gm/dL 6.0-8.3 770) ALBUMIN (BEAKER) (test code = 1145) 4.1 g/dL 3.5-5.0 BILIRUBIN TOTAL (BEAKER) (test code 0.2 mg/dL 0.2-1.2 = 377) BILIRUBIN DIRECT (BEAKER) (test 0.1 mg/dL 0.1-0.5 code = 706) ALKALINE PHOSPHATASE (BEAKER) (test 158 U/L 40-150 H code = 346) AST (SGOT) (BEAKER) (test code = 43 U/L 5-34 H 353) ALT (SGPT) (BEAKER) (test code = 45 U/L 6-55 347) CBC (HEMOGRAM ONLY)2018-10-25 05:18:00 Test Item Value Reference Range Interpretation Comments WHITE BLOOD CELL COUNT (BEAKER) 7.5 K/ L 3.5-10.5 (test code = 775) RED BLOOD CELL COUNT (BEAKER) 3.39 M/ L 3.93-5.22 L (test code = 761) HEMOGLOBIN (BEAKER) (test code = 10.8 GM/DL 11.2-15.7 L 410) HEMATOCRIT (BEAKER) (test code = 33.8 % 34.1-44.9 L 411) MEAN CORPUSCULAR VOLUME (BEAKER) 99.7 fL 79.4-94.8 H (test code = 753) MEAN CORPUSCULAR HEMOGLOBIN 31.9 pg 25.6-32.2 (BEAKER) (test code = 751) MEAN CORPUSCULAR HEMOGLOBIN CONC 32.0 GM/DL 32.2-35.5 L (BEAKER) (test code = 752) RED CELL DISTRIBUTION WIDTH 13.4 % 11.7-14.4 (BEAKER) (test code = 412) PLATELET COUNT (BEAKER) (test 154 K/CU MM 150-450 code = 756) MEAN PLATELET VOLUME (BEAKER) 11.4 fL 9.4-12.3 (test code = 754) NUCLEATED RED BLOOD CELLS 0 /100 WBC 0-0 (BEAKER) (test code = 413) CT, BRAIN, WITHOUT [id number] 00:33:00FINAL REPORT EXAM: CT, BRAIN, WITHOUT CONTRAST CLINICAL INDICATION: Altered mental status. TECHNIQUE: Helical CT images from skull base to vertex without IV contrast. This exam was performed according to our departmental dose- optimization program, which includes automated exposure control, adjustment of the mA and/or kV according to patient size and/or use of iterative quan nstruction technique. COMPARISON: CT from nine hours prior FINDINGS: Parenchyma: No infarction. No hemorrhage. No mass or mass effect. Extra-axial Collection: None Ventricular System: Normal Dural Venous Sinuses: Normal Osseous Structures: Normal Included Orbits: Normal Paranasal Sinuses: Pred ominantly clear Tympanomastoid Cavities: Normal Other: None IMPRESSION:No acute abnormality on noncontrast CT of the head. Signed: Dionicio Salazar MDReport Verified Date/Time: 10/25/2018 00:33:20 Reading Location: [address] Neuro Reading Room POCT-GLUCOSE [id number] 23:26:00 Test Item Value Reference Range Interpretation Comments POC-GLUCOSE METER 77 mg/dL 70-[address] [facility] 67[address] (BEAKER) (test code = [place] [address] 1538) SCREEN, [id number] 18:06:00 Test Item Value Reference Range Interpretation Comments TEST URINE (BEAKER) (test Negative code = 583) RAPID DRUG SCREEN, [id number] 16:54:00 Test Item Value Reference Range Interpretation Comments BARBITURATE URINE (BEAKER) (test Negative Negative code = 725) BENZODIAZEPINE SCREEN URINE (BEAKER) Negative Negative (test code = 726) COCAINE (METAB.) SCREEN (BEAKER) Negative Negative (test code = 1164) METHADONE SCREEN (BEAKER) (test code Negative Negative = 1436) OPIATE SCREEN URINE (BEAKER) (test Negative Negative code = 734) CANNABINOID SCREEN URINE (BEAKER) Negative Negative (test code = 727) AMPH/METHAMPH SCREEN (BEAKER) (test Negative Negative code = 1438) PHENCYCLIDINE SCREEN URINE (BEAKER) Negative Negative (test code = 608) DRUG CUTOFF CONC.Cocaine 300 ng/mL Cannabinoid 50 ng/mLBenzodiazepine 200 ng/mLBarbiturate 200 ng/mLPhencyclidine 25 ng/mLOpiate 300 ng/mLMethadone 300 ng/mLAmphetamine/ 1000 ng/mL MethamphetamineThis assay provides an unconfirmed qualitative test result for the clinical management of patients in emergency situations. Chain of custody not maintained. Some hhry-gcc-ipwagux medications, as well as adulterants, may cause inaccurate results. Clinical correlation should be applied. A more comprehensivedrug screen or confirmation of a detected drug may be performed upon request.URINALYSIS W/ REFLEX URINE [id number] 15:45:00 Test Item Value Reference Range Interpretation Comments COLOR (BEAKER) (test code = 470) Light Yellow CLARITY (BEAKER) (test code = Hazy 469) SPECIFIC GRAVITY UA (BEAKER) 1.019 1.001-1.035 (test code = 468) PH UA (BEAKER) (test code = 467) 6.5 5.0-8.0 PROTEIN UA (BEAKER) (test code = 20 mg/dL Negative A 464) GLUCOSE UA (BEAKER) (test code = Negative Negative 365) KETONES UA (BEAKER) (test code = Negative Negative 371) BILIRUBIN UA (BEAKER) (test code Negative Negative = 462) BLOOD UA (BEAKER) (test code = Negative Negative 461) NITRITE UA (BEAKER) (test code = Positive Negative A 465) LEUKOCYTE ESTERASE UA (BEAKER) Negative Negative (test code = 466) UROBILINOGEN UA (BEAKER) (test 0.2 mg/dL 0.2-1.0 code = 463) RBC UA (BEAKER) (test code = 1 /HPF 519) WBC UA (BEAKER) (test code = 6 /HPF 520) BACTERIA (BEAKER) (test code = Occasional 517) MUCUS (BEAKER) (test code = Rare 1574) SQUAMOUS EPITHELIAL (BEAKER) < /HPF (test code = 516) CRYSTALS, URINE (BEAKER) (test Rare code = 1521) SOURCE(BEAKER) (test code = 7458) B-TYPE NATRIURETIC FACTOR (BNP)2018-10-24 15:41:00 Test Item Value Reference Range Interpretation Comments B-TYPE NATRIURETIC PEPTIDE (BEAKER) < pg/mL 0-100 (test code = 700) BASIC METABOLIC [id number] 15:41:00 Test Item Value Reference Range Interpretation Comments SODIUM (BEAKER) (test 139 meq/L 136-145 code = 381) POTASSIUM (BEAKER) 4.3 meq/L 3.5-5.1 (test code = 379) CHLORIDE (BEAKER) 108 meq/L 98-107 H (test code = 382) CO2 (BEAKER) (test 24 meq/L 22-29 code = 355) BLOOD UREA NITROGEN 22 mg/dL 7-21 H (BEAKER) (test code = 354) CREATININE (BEAKER) 0.81 mg/dL 0.57-1.25 (test code = 358) GLUCOSE RANDOM 88 mg/dL 70-105 (BEAKER) (test code = 652) CALCIUM (BEAKER) 9.4 mg/dL 8.4-10.2 (test code = 697) EGFR (BEAKER) (test INSUFFIC IENT CLINICAL code = 1092) DATA TO CALCULA TE ESTIMATED GFR. TROPONIN [id number] 15:34:00 Test Item Value Reference Range Interpretation Comments TROPONIN I (BEAKER) (test code = 397) < ng/mL 0.00-0.03 Troponin I (TnI) levels must be interpreted in the context of the presenting symptoms and the clinical findings. Elevated TnI levels indicate myocardial damage, but are not specific for ischemic heart disease. Elevated TnI levels are seen in patients with other cardiac conditions (including myocarditis and congestive heart failure), and slight TnI elevations occur in patients with other conditions, including sepsis, renal failure, acidosis, acute neurological disease, and persistent tachyarrhythmia.HEPATIC FUNCTION [id number] 15:32:00 Test Item Value Reference Range Interpretation Comments TOTAL PROTEIN (BEAKER) (test code = 8.0 gm/dL 6.0-8.3 770) ALBUMIN (BEAKER) (test code = 1145) 4.2 g/dL 3.5-5.0 BILIRUBIN TOTAL (BEAKER) (test code 0.1 mg/dL 0.2-1.2 L = 377) BILIRUBIN DIRECT (BEAKER) (test 0.1 mg/dL 0.1-0.5 code = 706) ALKALINE PHOSPHATASE (BEAKER) (test 165 U/L 40-150 H code = 346) AST (SGOT) (BEAKER) (test code = 57 U/L 5-34 H 353) ALT (SGPT) (BEAKER) (test code = 51 U/L 6-55 347) [id number] 15:27:00 Test Item Value Reference Range Interpretation Comments ETHANOL (BEAKER) (test code = 400) < mg/dL <=10 POCT-GLUCOSE [id number] 15:15:00 Test Item Value Reference Range Interpretation Comments POC-GLUCOSE METER 82 mg/dL 70-[address] [facility] [address] (BEAKER) (test code = [address] [place] [facility] [id number]) RAD, CHEST, 1 VIEW, NON [id number] 15:13:00Reason for exam:->sobShould this be performed at the bedside?->YesFINAL REPORT INDICATION: sob COMPARISON: None TECHNIQUE: Single frontal view of the chest. FINDINGS: Lungs and pleura: Clear lungs. No effusion.Heart and mediastinum: Normal heart size. Unremarkable mediastinal contours.Osseous structures: No acute abnormality.Other: None. IMPRESSION: No acute intrathoracic abnormality. Signed: JR Escobar Robert MDReport Verified Date/Time: 10/24/2018 15:13:38 Reading Location: [facility] Radiology Reading Room CBC W/PLT COUNT & AUTO [id number] 15:06:00 Test Item Value Reference Range Interpretation Comments WHITE BLOOD CELL COUNT (BEAKER) 6.8 K/ L 3.5-10.5 (test code = 775) RED BLOOD CELL COUNT (BEAKER) 3.36 M/ L 3.93-5.22 L (test code = 761) HEMOGLOBIN (BEAKER) (test code = 10.9 GM/DL 11.2-15.7 L 410) HEMATOCRIT (BEAKER) (test code = 33.2 % 34.1-44.9 L 411) MEAN CORPUSCULAR VOLUME (BEAKER) 98.8 fL 79.4-94.8 H (test code = 753) MEAN CORPUSCULAR HEMOGLOBIN 32.4 pg 25.6-32.2 H (BEAKER) (test code = 751) MEAN CORPUSCULAR HEMOGLOBIN CONC 32.8 GM/DL 32.2-35.5 (BEAKER) (test code = 752) RED CELL DISTRIBUTION WIDTH 13.3 % 11.7-14.4 (BEAKER) (test code = 412) PLATELET COUNT (BEAKER) (test 174 K/CU MM 150-450 code = 756) MEAN PLATELET VOLUME (BEAKER) 11.1 fL 9.4-12.3 (test code = 754) NUCLEATED RED BLOOD CELLS 0 /100 WBC 0-0 (BEAKER) (test code = 413) NEUTROPHILS RELATIVE PERCENT 67 % (BEAKER) (test code = 429) LYMPHOCYTES RELATIVE PERCENT 25 % (BEAKER) (test code = 430) MONOCYTES RELATIVE PERCENT 7 % (BEAKER) (test code = 431) EOSINOPHILS RELATIVE PERCENT 0 % (BEAKER) (test code = 432) BASOPHILS RELATIVE PERCENT 0 % (BEAKER) (test code = 437) NEUTROPHILS ABSOLUTE COUNT 4.56 K/ L 1.56-6.13 (BEAKER) (test code = 670) LYMPHOCYTES ABSOLUTE COUNT 1.71 K/ L 1.18-3.74 (BEAKER) (test code = 414) MONOCYTES ABSOLUTE COUNT (BEAKER) 0.44 K/ L 0.24-0.36 H (test code = 415) EOSINOPHILS ABSOLUTE COUNT 0.02 K/ L 0.04-0.36 L (BEAKER) (test code = 416) BASOPHILS ABSOLUTE COUNT (BEAKER) 0.02 K/ L 0.01-0.08 (test code = 417) IMMATURE GRANULOCYTES-RELATIVE 0 % 0-1 PERCENT (BEAKER) (test code = 2801) CT, SPINE, CERVICAL, WO [id number] 15:06:00Reason for exam:->r/o c- spine injuryIs the patient ?->UnknownWhat is the patient's sedation requirement?->No SedationFINAL REPORT CT Cervical spine CLINICAL HISTORY: Polytrauma, critical, head/C-spine injury suspectedr/o c-spine injury TECHNIQUE: Contiguous axial images of the cervical spine with coronal and sagittal reformations to assess the alignment. This exam was performed according to the departmental dose optimization program which includes automated exposure control, adjustment of themA and/or kV according to the patient size, and/or use of an iterative reconstruction technique. COMPARISON: None FINDINGS: The vertebral body heights are preserved without fracture or dislocation. There is no prevertebral soft tissue swelling. There is straightening of the cervical curvature with maintained alignment. Allowing for the lack of intrathecal contrast, there is no significant appearing central canal stenosis. There are scattered subcentimeter lymph nodes in the neck. The visualized lungapices are clear. IMPRESSION: Straightening of the cervical curvature without evidence for fracture.Signed: Cornelius Selby MDReport Verified Date/Time: 10/24/2018 15:06:41 Reading Location: [place] [id number] Neuro Reading Room , BRAIN/STROKE [id number] 14:38:00Reason for exam:->r/o cvaIs the patient ?->UnknownWhat is the patient's sedation requirement?->No SedationFINAL REPORT CT, BRAIN/STROKE PROTOCOL CLINICAL INDICATION: Neuro deficit(s), subacuter/o cva COMPARISON: None TECHNIQUE: Noncontrast axial CT imaging of the brain and skull. DOSE REDUCTION: Dose modulation, iterative reconstruction, and/or weight-based adjustment of the mA/kV was utilized to reduce the radiation dose to as low as reasonably achievable. FINDINGS:No intracranial hemorrhage, midline shift or mass effect. Midline structures are normally developed. Mild chronicmicrovascular ischemic changes of the periventricular and subcortical white matter are present. No hy drocephalus. Orbits are within normal limits. No obstructive paranasal sinus disease. IMPRESSION: No acute intracranial findings If there is persistent clinical concern for intracranial pathology, MR examination is recommended for further characterization. Findings discussed with ED by Dr. Shirley at time of this dictation Signed: Karen Shirley MDRyevgeniy Verified Date/Time: 10/24/2018 14:38:49 Reading Location: [facility] B1 [id number] Consult Reading Room "
[2020-12-30] MEDS ORDERED: NA CHLORIDE 0.9% 1,000 ML ONE (13:19)
[2020-12-30 13:35] LABS: Protime INR 1.31
--- NOTE | 2020-12-30 13:44 | RAD REPORT ---
EXAM DESCRIPTION: RAD - Chest Single View - 12/30/2020 1:31 pm CLINICAL HISTORY: DYSPNEA COMPARISON: Chest Pa And Lat (2 Views) dated 07/08/2020; Abdomen 1 View (KUB) dated 01/09/2017; Abdom en 1 View (KUB) dated 12/28/2016; Chest Pa And Lat (2 Views) dated 12/06/2015 FINDINGS: Lines: None. Lungs: Irregular airspace opacities in the right upper lobe and left lung base. Pleural: No significant pleural effusions or pneumothorax. Cardiac: The heart size is within normal limits. Bones: No acute fractures. Other: IMPRESSION: Airspace opacities in the right upper lobe and left lung base could reflect pneumonia. R ecommend 6 week follow-up chest radiograph to ensure resolution.
[2020-12-30 15:14] LABS: Absolute Lymphocytes (CBC) 1.5 K/uL (0.7-4.9); Basophils % 0.3 % (0-1.3); Hematocrit 29.7 % (36.0-45.0); Lymphocytes % 16.9 % (15.3-44.8); MPV 8.1 fL (7.6-11.3); RBC Red Blood Cell Count 3.18 M/uL (3.86-4.86)
[2020-12-30 15:30] LABS: ALT/SGPT 35 U/L (12-78); AST/SGOT 26 U/L (15-37); Albumin 2.4 g/dL (3.4-5.0); Alkaline Phosphatase 290 U/L (45-117); BUN Blood Urea Nitrogen 13 mg/dL (7-18); Bicarbonate 21 mmol/L (21-32); Bilirubin Direct 0.2 mg/dL (0-0.2); Bilirubin Total 0.5 mg/dL (0.2-1.0); Glucose Level 178 mg/dL (74-106); Protein, Total 7.4 g/dL (6.4-8.2); Sodium Level 133 mmol/L (136-145); Troponin I < 0.02 ng/mL (0.0-0.045)
--- NOTE | 2020-12-30 16:22 | ER ---
Nurse's Notes [facility] Name: Mckenna Avila Age: 45 yrs Sex: Female : 1975 Arrival Date: 12/30/2020 Time: 11:36 Bed 17 Private MD: Diagnosis: Hypotension, unspecified;Unspecified bacterial pneumonia Presentation: 12/30 11:49 Chief complaint: Patient states: "I've had Pneumonia for a while and I can't seem to aa5 get rid of it". Pt states "about 3 weeks ago I was found unresponsive by my and the ambulance took me [facility] and they found a blood infection and I did 10 days of IV antibiotics at home for it". Pt states "today I went to Dr. Adams and he said my blood pressure was too low today, it was 80/55". Coronavirus screen: cough unrelated to allergies. Ebola Screen: No symptoms or risks identified at this time. Initial Sepsis Screen: Does the patient meet any 2 criteria? HR > 90 bpm. Does the patient have a suspected source of infection? Yes: Productive cough/pneumonia. Risk Assessment: Do you want to hurt yourself or someone else? Patient reports no desire to harm self or others. Onset of symptoms was 2020. 11:49 Acuity: KEIKO 2 aa5 11:49 Method Of Arrival: Wheelchair aa5 Historical: - Allergies: 11:49 Omnicef; aa5 - PMHx: 11:49 chrons disease; kidney problems; Kidney stones; aa5 - Immunization history:: Adult Immunizations up to date, Client reports receiving the 2nd dose of the Covid vaccine. - Social history:: Smoking status: Patient denies any tobacco usage or history of. Screenin:46 Abuse screen: Denies threats or abuse. Denies injuries from another. Nutritional sl2 screening: No deficits noted. Tuberculosis screening: No symptoms or risk factors identified. Never had TB. Possible symptoms: None Risk factors: None. Fall Risk None identified. No fall in past 12 months (0 pts). No secondary diagnosis (0 pts). IV access (20 points). Ambulatory Aid- None/Bed Rest/Nurse Assist (0 pts). Gait- Normal/Bed Rest/Wheelchair (0 pts) Mental Status- Oriented to own ability (0 pts). Assessment: 12:46 General: Appears in no apparent distress. well groomed, well developed, Behavior is sl2 calm, cooperative, appropriate for age, Reports Denies any untoward symptoms sent to ED by her GI doctor for evaluation of asymptomatic hypotension. Pain: Denies pain. Neuro: No deficits noted. Level of Consciousness is awake, alert, obeys commands, Oriented to person, place, time, situation, Appropriate for age Armored Car Guard are equal bilaterally Moves all extremities. Full function Gait is steady, Speech is normal, Facial symmetry appears normal. Cardiovascular: No deficits noted. Respiratory: No deficits noted. Airway is patent Trachea midline Respiratory effort is even, unlabored, Respiratory pattern is regular, symmetrical. GI: No deficits noted. No signs and/or symptoms were reported involving the gastrointestinal system. : No deficits noted. No signs and/or symptoms were reported regarding the genitourinary system. EENT: No deficits noted. No signs and/or symptoms were reported regarding the EENT system. Derm: No deficits noted. No signs and/or symptoms reported regarding the dermatologic system. Musculoskeletal: No deficits noted. No signs and/or symptoms reported regarding the musculoskeletal system. Vital Signs: 11:49 BP 94 / 70; Pulse 100; Resp 18 S; Temp 97.8(O); Pulse Ox 96% ; Weight 77.56 kg (R); aa5 Height 5 ft. 7 in. (170.18 cm) (R); 12:00 BP 88 / 68; Pulse 96; Resp 18; Temp 97.8(O); Pulse Ox 100% on R/A; sl2 12:30 BP 100 / 87; Pulse 102; Resp 18; Pulse Ox 100% on R/A; sl2 13:00 BP 112 / 65; Pulse 100; Resp 18; Temp 97.9; Pulse Ox 100% on R/A; sl2 14:00 BP 119 / 87; Pulse 104; Resp 16; Pulse Ox 99% on R/A; sl2 15:30 BP 107 / 81; Pulse 111; Resp 18; Pulse Ox 100% ; sl2 16:30 BP 122 / 98; Pulse 111; Resp 18; Pulse Ox 99% on R/A; sl2 17:00 BP 128 / 92; Pulse 113; Resp 18; Temp 98.8; Pulse Ox 99% on R/A; sl2 18:00 BP 136 / 97; Pulse 116; Resp 18; Pulse Ox 97% on R/A; sl2 19:00 BP 118 / 87; Pulse 102; Resp 20; Pulse Ox 96% on R/A; cc4 20:50 BP 117 / 80; Pulse 104; Resp 20 S; Temp 97.9(O); Pulse Ox 98% on R/A; cc4 11:49 Body Mass Index 26.78 (77.56 kg, 170.18 cm) aa5 ED Course: 11:36 Patient arrived in ED. as 11:48 Arm band placed on. aa5 11:52 Triage completed. aa5 11:54 Babar Treadwell PA is PHCP. jr8 11:54 Sai Pardo MD is Attending Physician. jr8 12:13 Catrina Finney, SISSY is Primary Nurse. sl2 12:46 Patient has correct armband on for positive identification. Placed in gown. Bed in low sl2 position. Call light in reach. Side rails up X2. Adult w/ patient. 12:46 No provider procedures requiring assistance completed. sl2 13:31 Chest Single View XRAY In Process Unspecified. EDMS 16:21 Aliyah Castro MD is Hospitalizing Provider. jr8 16:28 CT Chest Wo Con In Process Unspecified. EDMS 18:13 Inserted saline lock: 24 gauge in left hand, using aseptic technique. iw 20:26 Patient admitted, IV remains in place. ld1 Administered Medications: 15:04 Not Given (Patient Refused): NS 0.9% 1000 ml IV at 1000 ml once sl2 18:20 Drug: fentaNYL (PF) 25 mcg Route: IVP; Site: left hand; sl2 18:32 Drug: Zosyn (piperacillin-tazobactam) 3.375 grams Route: IVPB; Infused Over: 60 mins; sl2 Site: left hand; Outcome: 16:21 Decision to Hospitalize by Provider. jr8 20:26 Admitted to Med/surg accompanied by tech, via wheelchair, room 206, with chart, Report ld1 called to SISSY Bello 20:26 Condition: stable 20:26 Instructed on the need for admit. 20:59 Patient left the ED. ld1 Signatures: Dispatcher [employer] Bethany Jackson as Beverly Troncoso RN RN Sarah Abdi RN RN aa5 Babar Treadwell PA PA jr8 Kimberlee Winkler RN RN ld1 Karli Burns, RN RN cc4 Catrian Finney RN RN sl2 Corrections: (The following items were deleted from the chart) 11:58 11:49 BP 94 / 70; Pulse 100bpm; Resp 18bpm; Spontaneous; Pulse Ox 96%; 77.56 kg aa5 Reported; Height 5 ft. 7 in. Reported; BMI: 26.7; aa5
--- NOTE | 2020-12-30 16:22 | EDPHYS ---
Physician Documentation [facility] Name: Mckenna Avila Age: 45 yrs Sex: Female : 1975 Arrival Date: 12/30/2020 Time: 11:36 Bed 17 Private MD: ED Physician Sai Pardo HPI: 12/30 13:12 This 45 yrs old Female presents to ER via Wheelchair with complaints of Blood Pressure jr8 Problem. 13:12 Is a 45-year-old female patient that presented emergency room after being seen by her jr8 gas producer and noted to have low blood pressure. Patient stated that about 3 weeks ago she was diagnosed with bilateral pneumonia and was in the hospital for about 1 week and then sent home on 10 days of IV antibiotics. Patient stated that she feels that she still has not gotten rid of the pneumonia. Has had on and off right-sided back pain and chest pain. When going to her gas producer today for her Remicade infusion for Crohn's it was found that her blood pressure was in the 80s.. Historical: - Allergies: 11:49 Omnicef; aa5 - PMHx: 11:49 chrons disease; kidney problems; Kidney stones; aa5 - Immunization history:: Adult Immunizations up to date, Client reports receiving the 2nd dose of the Covid vaccine. - Social history:: Smoking status: Patient denies any tobacco usage or history of. ROS: 13:12 Eyes: Negative for injury, pain, redness, and discharge, ENT: Negative for injury, jr8 pain, and discharge, Neck: Negative for injury, pain, and swelling, Respiratory: Negative for shortness of breath, cough, wheezing, and pleuritic chest pain, Abdomen/GI: Negative for abdominal pain, nausea, vomiting, diarrhea, and constipation, Back: Negative for injury and pain, MS/Extremity: Negative for injury and deformity, Skin: Negative for injury, rash, and discoloration, Neuro: Negative for headache, weakness, numbness, tingling, and seizure. 13:12 Cardiovascular: Positive for chest pain, Negative for edema, orthopnea, palpitations, paroxysmal nocturnal dyspnea. Exam: 13:12 Constitutional: This is a well developed, well nourished patient who is awake, alert, jr8 and in no acute distress. Eyes: Pupils equal round and reactive to light, extra-ocular motions intact. Lids and lashes normal. Conjunctiva and sclera are non-icteric and not injected. Cornea within normal limits. Periorbital areas with no swelling, redness, or edema. ENT: Nares patent. No nasal discharge, no septal abnormalities noted. Tympanic membranes are normal and external auditory canals are clear. Oropharynx with no redness, swelling, or masses, exudates, or evidence of obstruction, uvula midline. Mucous membranes moist. Neck: Trachea midline, no thyromegaly or masses palpated, and no cervical lymphadenopathy. Supple, full range of motion without nuchal rigidity, or vertebral point tenderness. No Meningismus. Cardiovascular: Regular rate and rhythm with a normal S1 and S2. No gallops, murmurs, or rubs. Normal PMI, no JVD. No pulse deficits. Respiratory: Lungs have equal breath sounds bilaterally, clear to auscultation and percussion. No rales, rhonchi or wheezes noted. No increased work of breathing, no retractions or nasal flaring. Abdomen/GI: Soft, non-tender, with normal bowel sounds. No distension or tympany. No guarding or rebound. No evidence of tenderness throughout. Back: No spinal tenderness. No costovertebral tenderness. Full range of motion. Skin: Warm, dry with normal turgor. Normal color with no rashes, no lesions, and no evidence of cellulitis. MS/ Extremity: Pulses equal, no cyanosis. Neurovascular intact. Full, normal range of motion. Neuro: Awake and alert, GCS 15, oriented to person, place, time, and situation. Cranial nerves II-XII grossly intact. Motor strength 5/5 in all extremities. Sensory grossly intact. Vital Signs: 11:49 BP 94 / 70; Pulse 100; Resp 18 S; Temp 97.8(O); Pulse Ox 96% ; Weight 77.56 kg (R); aa5 Height 5 ft. 7 in. (170.18 cm) (R); 12:00 BP 88 / 68; Pulse 96; Resp 18; Temp 97.8(O); Pulse Ox 100% on R/A; sl2 12:30 BP 100 / 87; Pulse 102; Resp 18; Pulse Ox 100% on R/A; sl2 13:00 BP 112 / 65; Pulse 100; Resp 18; Temp 97.9; Pulse Ox 100% on R/A; sl2 14:00 BP 119 / 87; Pulse 104; Resp 16; Pulse Ox 99% on R/A; sl2 15:30 BP 107 / 81; Pulse 111; Resp 18; Pulse Ox 100% ; sl2 16:30 BP 122 / 98; Pulse 111; Resp 18; Pulse Ox 99% on R/A; sl2 17:00 BP 128 / 92; Pulse 113; Resp 18; Temp 98.8; Pulse Ox 99% on R/A; sl2 18:00 BP 136 / 97; Pulse 116; Resp 18; Pulse Ox 97% on R/A; sl2 19:00 BP 118 / 87; Pulse 102; Resp 20; Pulse Ox 96% on R/A; cc4 20:50 BP 117 / 80; Pulse 104; Resp 20 S; Temp 97.9(O); Pulse Ox 98% on R/A; cc4 11:49 Body Mass Index 26.78 (77.56 kg, 170.18 cm) aa5 MDM: 11:55 Patient medically screened. jr8 16:19 Data reviewed: vital signs, nurses notes, lab test result(s), EKG, radiologic studies, jr8 CT scan, plain films. Data interpreted: Pulse oximetry: on room air is 100 %. Interpretation: normal. Counseling: I had a detailed discussion with the patient and/or guardian regarding: the historical points, exam findings, and any diagnostic results supporting the discharge/admit diagnosis, lab results, radiology results, the need for further work-up and treatment in the hospital. ED course: Patient continues to have chest pain and back pain. Patient has right upper lobe opacity along with left lower lobe opacity consistent with unresolved pneumonia. I have ordered a CT scan to further delineate possible causes of this order to rule out mass. Patient's procalcitonin is elevated and she had come in hypotensive. There is still clinical concern for bacteremia. Given all this I recommended admission and for pulmonology to consult as patient has been on a few different biologic medications that could be causing opportunistic infections. Patient is good with this at this time.. 12/30 12:05 Order name: CBC with Diff; Complete Time: 15:33 jr8 12/30 12:05 Order name: Basic Metabolic Panel; Complete Time: 15:33 jr8 12/30 12:05 Order name: Urine Microscopic Only 8 12/30 12:27 Order name: Blood Culture Adult (2) [facility] 12/30 12:27 Order name: Lactate; Complete Time: 13:57 [facility] 12/30 12:27 Order name: Procalcitonin; Complete Time: 16:15 [facility] 12/30 12:27 Order name: Protime (+inr); Complete Time: 13:38 [facility] 12/30 12:27 Order name: Ptt, Activated; Complete Time: 13:38 [facility] 12/30 15:16 Order name: Liver (Hepatic) Function; Complete Time: 15:33 EDMS 12/30 15:16 Order name: Troponin I; Complete Time: 15:33 EDMD 12/30 16:27 Order name: SARS-COV-2 RT PCR (Document "Date of Onset" if Symptomatic) [facility] 12/30 16:32 Order name: Urine Dipstick-Ancillary; Complete Time: 16:35 [facility] 12/30 12:05 Order name: IV; Complete Time: 20:46 [facility] 12/30 12:05 Order name: Urine Dipstick-Ancillary (obtain specimen); Complete Time: 20:46 [facility] 12/30 12:27 Order name: Chest Single View XRAY; Complete Time: 13:48 [facility] 12/30 12:27 Order name: Cardiac monitoring; Complete Time: 12:45 [facility] 12/30 12:27 Order name: EKG - Nurse/Tech; Complete Time: 20:47 [facility] 12/30 12:27 Order name: IV Saline Lock - Large Bore; Complete Time: 15:04 [facility] 12/30 12:27 Order name: Labs collected and sent; Complete Time: 15:04 [facility] 12/30 12:27 Order name: O2 Per Protocol; Complete Time: 12:45 [facility] 12/30 12:27 Order name: O2 Sat Monitoring; Complete Time: 12:45 [facility] 12/30 15:41 Order name: CT Chest Wo Con; Complete Time: 17:03 [facility] 12/30 16:29 Order name: CONS Physician Consult; Complete Time: 20:44 EDMS 12/30 16:29 Order name: CONS Physician Consult; Complete Time: 20:43 EDMS 12/30 16:29 Order name: Heart Healthy; Complete Time: 20:43 EDMS Administered Medications: 15:04 Not Given (Patient Refused): NS 0.9% 1000 ml IV at 1000 ml once sl2 18:20 Drug: fentaNYL (PF) 25 mcg Route: IVP; Site: left hand; sl2 18:32 Drug: Zosyn (piperacillin-tazobactam) 3.375 grams Route: IVPB; Infused Over: 60 mins; sl2 Site: left hand; Disposition: 12/31 07:16 Co-signature as Attending Physician, Sai Pardo MD I agree with the assessment and kdr plan of care. Disposition Summary: 12/30/20 16:21 Hospitalization Ordered Hospitalization Status: Inpatient Admission jr8 Provider: Aliyah Castro Location: Telemetry/MedSurg (Inpatient) jr8 Condition: Stable jr8 Problem: new jr8 Symptoms: are unchanged jr8 Bed/Room Type: Standard [facility] Room Assignment: 206(12/30/20 20:02) eb1 Diagnosis - Hypotension, unspecified jr8 - Unspecified bacterial pneumonia jr8 Forms: - Medication Reconciliation Form jr8 - SBAR form jr8 Signatures: Dispatcher [employer] EDMS Sai Pardo MD MD kdr Ivan Peres em1 Sarah Abdi, RN RN aa5 Babar Treadwell PA PA jr8 Sal Reid FNP-C FUR CUTTING MACHINE OPERATOR-Sanaz Hicks, RN RN eb1 Karli Burns, RN RN cc4 Catrina Finney RN RN sl2 Corrections: (The following items were deleted from the chart) 12/30 15:15 12:28 HEPATIC FUNCTION+C.LAB.BRZ ordered. EDMS EDMS 15:15 12:28 TROPONIN (EMERG DEPT USE ONLY)+C.LAB.BRZ ordered. EDMS EDMS 20:02 16:21 jr8 eb1
[2020-12-30] MEDS ORDERED: ONDANSETRON 4 MG/2 ML VIAL IV PRN (16:25)
[2020-12-30] MEDS ORDERED: ACETAMINOPHEN 500 MG TAB PO PRN (16:25)
--- NOTE | 2020-12-30 16:31 | P.HP ---
Certification for Inpatient Patient admitted to: Inpatient With expected LOS: >2 Midnights Patient will require the following post-hospital care: None Practitioner: I am a practitioner with admitting privileges, knowledge of patient current condition, hospital course, and medical plan of care. Services: Services provided to patient in accordance with Admission requirements found in Title 42 Section 412.3 of the Code of Federal Regulations Patient History Date of Service: 12/30/20 Reason for admission: Hypotension History of Present Illness: Patient is a 45-year-old female with history of Crohn's disease and has been on immunosuppressant therapy by GI. She was seen by Gastroenterology in the clinic and she was sent to the emergency room because she had pneumonia. Patient has not been on any medication for pneumonia. She came to the ER and CT revealed possible questionable fungal pneumonia. Patient be admitted to the hospital for further treatment. Pulmonary Consulted and plan for bronchoscopy on Sunday. Patient was chronic pain issues as well. Takes pain medication at home. Poorly controlled. Currently on fentanyl and hydrocodone. Allergies cefdinir [From Omnicef] Allergy (Verified 07/09/20 10:42) Hives ciprofloxacin [From Cipro] Allergy (Verified 07/09/20 10:42) red rash and hot at iv site Home Medications: Buspirone HCl [Buspar] 10 mg PO DAILY 07/08/20 Dicyclomine HCl 20 mg PO TID 07/08/20 Erenumab-Aooe [Aimovig Autoinjector] 140 mg SQ SEECOM 07/08/20 Gabapentin 600 mg PO TID 07/08/20 Ibuprofen [Motrin] 600 mg PO Q8HR 07/08/20 LORazepam [Ativan] 1 mg PO BEDTIME PRN 07/08/20 Metoprolol Succinate [Toprol Xl] 25 mg PO DAILY 07/08/20 Promethazine Tab [Phenergan] 25 mg PO Q6HP PRN 07/08/20 predniSONE [Prednisone] 20 mg PO DAILY 07/08/20 Famotidine [Pepcid] 1 tab PO DAILY 07/09/20 Losartan Potassium 1 tab PO DAILY 07/09/20 Albuterol Sulfate [Proair Respiclick] 12/30/20 Dexlansoprazole [Dexilant] 60 mg PO AC 12/30/20 Diphenox/Atropine [Lomotil*] 1 tab PO PRN PRN 12/30/20 Folic Acid 1 mg PO 12/30/20 Hydrocodone Bit/Acetaminophen [Hydrocodon-Acetaminoph 7.5-325] 1 each PO Q6HR 12/30/20 Tizanidine HCl [Zanaflex] 4 mg PO TID 12/30/20 methocarbamoL [Methocarbamol] 500 mg PO BEDTIME 12/30/20 - Past Medical/Surgical History Diabetic: No -: Crohn's disease -: Kidney Stones -: Cdiff history -: hysterectomy -: kidney stone removed -: cholecystectomy -: tubal ligation - Family History Mother Medical History: Hypertension Father Medical History: Hypertension - Social History Smoking Status: Never smoker Alcohol use: No CD- Drugs: Yes Caffeine use: Yes Review of Systems 10-point ROS is otherwise unremarkable Physical Examination - Vital Signs Temperature: 98 F Blood Pressure: 120/70 Pulse: 80 Respirations: 18 Pulse Ox (%): 95 - Physical Exam General: Alert, In no apparent distress, Oriented x3 HEENT: Atraumatic, PERRLA, Mucous membr. moist/pink, EOMI, Sclerae nonicteric Neck: Supple, 2+ carotid pulse no bruit, No LAD, Without JVD or thyroid abnormality Respiratory: Clear to auscultation bilaterally, Normal air movement Cardiovascular: Regular rate/rhythm, Normal S1 S2 Gastrointestinal: Normal bowel sounds, No tenderness Musculoskeletal: No tenderness Integumentary: No rashes Neurological: Normal gait, Normal speech, Normal strength at 5/5 x4 extr, Normal tone, Normal affect Lymphatics: No axilla or inguinal lymphadenopathy - Studies Laboratory Data (last 24 hrs) 12/30/20 15:01: Total Bilirubin Cancelled, AST Cancelled, ALT Cancelled, Alkaline Phosphatase Cancelled 12/30/20 15:01: Sodium 133 L, Potassium 4.0, BUN 13, Creatinine 0.75, Glucose 178 H, Total Bilirubin 0.5, AST 26, ALT 35, Alkaline Phosphatase 290 H, Troponin I < 0.02 12/30/20 15:01: WBC 8.80, Hgb 9.8 L, Hct 29.7 L, Plt Count 283 12/30/20 13:15: PT 15.1 H, INR 1.31, APTT 34.0 Assessment & Plan - Problems (Diagnosis) (1) Pneumonia Current Visit: Yes Status: Acute Qualifiers: Pneumonia type: due to group B Streptococcus Laterality: bilateral (2) Crohns disease Onset Date: 11/02/17 Current Visit: No Status: Acute (3) Urinary tract infection Onset Date: 04/19/16 Current Visit: No Status: Acute Qualifiers: - Plan 1. Continue with IV antibiotics 2. Awaiting sputum and blood culture 3. Repeat chest x-ray 4. CT of the chest with questionable fungal pneumonia; may need bronchoscopy 5. Appreciate pulmonary consultation 6. Continue with nebs as needed 7. O2 per protocol 8. Continue with gentle hydration 9. Repeat labs including CBC and renal function in a.m. 10. GI and DVT prophylaxis Discharge Plan: Home Plan to discharge in: Greater than 2 days - Advance Directives Does patient have a Living Will: No Does patient have a Durable POA for Healthcare: No - Code Status/Comfort Care Code Status Assessed: Yes Code Status: Full Code Critical Care: No Time Spent Managing PTS Care (In Minutes): 45
[2020-12-30 16:32] LABS: Urine Blood Negative (Negative); Urine Glucose Negative (Negative); Urine Protein Negative (Negative)
--- NOTE | 2020-12-30 16:44 | RAD REPORT ---
EXAM DESCRIPTION: CT - Thorax Wo Con - 12/30/2020 4:28 pm CLINICAL HISTORY: unresolved pneumonia COMPARISON: Thorax Wo Con dated 12/07/2015; Chest Single View dated 12/30/2020 FINDINGS: Chest Wall: No suspicious thyroid nodules or pathologic lymphadenopathy. Lungs: Miliary nodularity bilaterally. There are also patchy areas of predominantly peripheral ground -glass opacities which have air bronchograms. . Pleura: No significant effusions or pneumothorax. Mediastinum/jaycob: No pathologic lymphadenopathy. Pulmonary arteries/Aorta: Limited evaluation without contrast. No aortic aneurysm. Heart: No significant pericardial effusion. Normal heart size. Upper abdomen: No acute abnormality. Bones: No acute abnormality. All CT scans are performed using dose optimization technique as appropriate and may include automated exposure control or mA/KV adjustment according to patient size. IMPRESSION: Bilateral patchy ground-glass and nodular opacities on a background of miliary nodularit y. The larger ground-glass and nodular opacities could represent an acute superimposed process such a s pneumonia or could be a manifestation of a similar etiology as the miliary nodules. Atypical infect ious and inflammatory etiologies are within the differential.
[2020-12-30] MEDS: NA CHLORIDE 0.9% 1,000 ML IV SCH (17:00)
[2020-12-30] MEDS: ENOXAPARIN 40 MG/0.4 ML SQ SCH (17:00)
[2020-12-30] MEDS: PIPER TAZO 3.375 GM in NA CHLORIDE 0.9% 100 ML IV SCH ×2 (17:00→23:58)
[2020-12-30] MEDS ORDERED: FENTANYL CITR 100 MCG/2 ML ONE (18:15)
[2020-12-30] MEDS ORDERED: NA CHLORIDE 0.9% 100 ML ONE (18:16)
[2020-12-30] MEDS ORDERED: PIPERACIL/TAZO 3.375 GM VIAL IV ONE (18:16)
[2020-12-30 20:41] VITALS: BMI 26.9
[2020-12-30] MEDS: FENTANYL CITR 100 MCG/2 ML IV PRN (21:49)
[2020-12-30] MEDS: LORAZEPAM 1 MG TABLET PO PRN (22:37)
[2020-12-30] MEDS: HYDROCODONE/APAP 7.5/325 MG TAB PO PRN (23:59)
[2020-12-31] MEDS: NA CHLORIDE 0.9% 1,000 ML IV SCH ×3 (03:08→23:00)
[2020-12-31] MEDS: HYDROCODONE/APAP 7.5/325 MG TAB PO PRN (05:54)
[2020-12-31 06:24] LABS: Absolute Lymphocytes (CBC) 2.3 K/uL (0.7-4.9); Basophils % 0.3 % (0-1.3); Hematocrit 26.2 % (36.0-45.0); Lymphocytes % 32.4 % (15.3-44.8); MPV 7.8 fL (7.6-11.3); RBC Red Blood Cell Count 2.82 M/uL (3.86-4.86)
[2020-12-31 06:40] LABS: ALT/SGPT 27 U/L (12-78); AST/SGOT 22 U/L (15-37); Albumin 2.2 g/dL (3.4-5.0); Alkaline Phosphatase 238 U/L (45-117); BUN Blood Urea Nitrogen 12 mg/dL (7-18); Bicarbonate 23 mmol/L (21-32); Bilirubin Total 0.4 mg/dL (0.2-1.0); Glucose Level 102 mg/dL (74-106); NT PRO-BNP 174 pg/mL (<125); Phosphorus 2.4 mg/dL (2.5-4.9); Potassium 3.6 mmol/L (3.5-5.1); Protein, Total 6.5 g/dL (6.4-8.2); Sodium Level 137 mmol/L (136-145)
[2020-12-31] MEDS: PANTOPRAZOLE 40MG TABLET PO SCH ×3 (08:00→16:30)
[2020-12-31 08:38] LABS: Blood Morphology Comment NOT SEEN (NOT SEEN); Platelet Estimate ADEQ; White Blood Cell Scan OK (OK)
[2020-12-31] MEDS: ENOXAPARIN 40 MG/0.4 ML SQ SCH (09:00)
[2020-12-31] MEDS: BUSPIRONE HCL 5 MG TABLET PO SCH (09:26)
[2020-12-31] MEDS: FAMOTIDINE 20 MG TAB PO SCH (09:27)
[2020-12-31] MEDS: DICYCLOMINE HCL 10 MG CAP PO SCH ×3 (09:27→21:42)
[2020-12-31] MEDS: GABAPENTIN 300 MG CAP PO SCH ×3 (09:27→21:42)
[2020-12-31] MEDS: TIZANIDINE 4 MG TABLET PO SCH ×3 (09:27→22:07)
[2020-12-31] MEDS: METOPROLOL XL 25 MG TAB PO SCH (09:28)
[2020-12-31] MEDS: PIPER TAZO 3.375 GM in NA CHLORIDE 0.9% 100 ML IV SCH (09:30)
[2020-12-31] MEDS: DOXYCYCLINE 100 MG in NA CHLORIDE 0.9% 100 ML IVPB SCH ×2 (09:54→21:42)
--- NOTE | 2020-12-31 11:17 | P.CNS ---
Date of Consult: 12/31/20 Reason for Consult: Pneumonia Chief Complaint: Hypotension History of Present Illness: Patient is 45 patient is 45 years of age admitted with profound weakness shortness of breath cough was found to be hypotensive she has been sick since September patient is very immunocompromised has been using Remicade steroids methotrexate for her Crohn's disease apparently she had bacteremia was treated at [facility] discharged on IV antibiotics patient has not improved still continues to have problems CT scan shows diffuse micronodular changes patient does not patient does not smoke there is no prior history of malignancy or breast cancer Allergies cefdinir [From Omnicef] Allergy (Verified 07/09/20 10:42) Hives ciprofloxacin [From Cipro] Allergy (Verified 07/09/20 10:42) red rash and hot at iv site Home Medications: Buspirone HCl [Buspar] 10 mg PO DAILY 07/08/20 Dicyclomine HCl 20 mg PO TID 07/08/20 Erenumab-Aooe [Aimovig Autoinjector] 140 mg SQ SEECOM 07/08/20 Gabapentin 600 mg PO TID 07/08/20 Ibuprofen [Motrin] 600 mg PO Q8HR 07/08/20 LORazepam [Ativan] 1 mg PO BEDTIME PRN 07/08/20 Metoprolol Succinate [Toprol Xl] 25 mg PO DAILY 07/08/20 Promethazine Tab [Phenergan] 25 mg PO Q6HP PRN 07/08/20 predniSONE [Prednisone] 20 mg PO DAILY 07/08/20 Famotidine [Pepcid] 1 tab PO DAILY 07/09/20 Losartan Potassium 1 tab PO DAILY 07/09/20 Albuterol Sulfate [Proair Respiclick] 12/30/20 Dexlansoprazole [Dexilant] 60 mg PO AC 12/30/20 Diphenox/Atropine [Lomotil*] PRN 12/30/20 Folic Acid 1 mg PO 12/30/20 Hydrocodone Bit/Acetaminophen [Hydrocodon-Acetaminoph 7.5-325] 1 each PO Q6HR 12/30/20 Tizanidine HCl [Zanaflex] 4 mg PO TID 12/30/20 methocarbamoL [Methocarbamol] 500 mg PO BEDTIME 12/30/20 - Past Medical/Surgical History Diabetic: No -: Chron's -: Kidney Stones -: Cdiff hx -: hysterectomy -: kidney stone removed -: grace -: tubal ligation - Family History Mother Medical History: Hypertension Father Medical History: Hypertension - Social History Smoking Status: Never smoker Alcohol use: No CD- Drugs: No Caffeine use: Yes Place of Residence: Home Review of Systems General: Weakness Respiratory: Cough, Shortness of Breath Cardiovascular: Chest Pain Gastrointestinal: Nausea Physical Examination Temp Pulse Resp BP Pulse Ox 97.0 F 82 18 104/65 96 12/31/20 08:00 12/31/20 08:00 12/31/20 08:00 12/31/20 08:00 12/31/20 08:00 General: Alert, Oriented x3, Mild distress Respiratory: Clear to auscultation bilaterally Cardiovascular: No edema, Regular rate/rhythm Gastrointestinal: Normal bowel sounds, Soft and benign Integumentary: No rashes, No breakdown Laboratory Data (last 24 hrs) 12/30/20 15:01: Total Bilirubin Cancelled, AST Cancelled, ALT Cancelled, Alkaline Phosphatase Cancelled 12/30/20 15:01: Sodium 133 L, Potassium 4.0, BUN 13, Creatinine 0.75, Glucose 178 H, Total Bilirubin 0.5, AST 26, ALT 35, Alkaline Phosphatase 290 H, Troponin I < 0.02 12/30/20 15:01: WBC 8.80, Hgb 9.8 L, Hct 29.7 L, Plt Count 283 12/30/20 13:15: PT 15.1 H, INR 1.31, APTT 34.0 - Problems (1) Pneumonia Current Visit: Yes Status: Acute Plan: Patient is 40 patient is 45 years of age admitted with profound weakness low blood pressure low blood pressure complaining of shortness of breath on mild exertion diffuse micronodular changes on the CAT scan labs reviewed labs reviewed mildly anemic normal white count mildly elevated alkaline phosphatase normal liver function tests/I doubt if this is PCP however she is at risk for fungal superinfection we will plan to send off some blood test for his histoplasmosis coccidiomycosis and plan for a bronchoscopy on Sunday meanwhile change her over to doxycycline DC Zosyn patient's PT/INR is elevated I suspect is from the antibiotic use also given some vitamin K fully her PT/INR will normalize by Sunday/so need to rule out mycobacterial disease Qualifiers: Pneumonia type: due to group B Streptococcus Laterality: bilateral
[2020-12-31] MEDS ORDERED: VITAMIN K (ADULT) 10 MG/ML SQ ONE (11:20)
--- NOTE | 2020-12-31 13:18 | EKG ---
Test Date: 2020-12-30 Test Time: 20:50:43 Sample Prep Technician: LUCY MEASUREMENT RESULTS: Intervals: Rate: 105 ND: 146 QRSD: 74 QT: 344 QTc: 454 [place]: P: 29 ND: 146 QRS: -9 T: 39 INTERPRETIVE STATEMENTS: Sinus tachycardia Moderate voltage criteria for LVH, may be normal variant Nonspecific ST abnormality Abnormal ECG Compared to ECG 07/08/2020 14:10:10 ST (T wave) deviation now present Sinus rhythm no longer present Electronically Signed On 12-31-20 13:16:17 PATIENT OFFICE REP by Rashaun Muller
[2020-12-31] MEDS ORDERED: LIDOCAINE 1% MPF 5 ML VIAL ONE (14:22)
[2020-12-31] MEDS: FENTANYL CITR 100 MCG/2 ML IV PRN ×2 (15:24→19:33)
[2020-12-31] MEDS ORDERED: PROMETHAZINE 25 MG TABLET PO PRN (18:42)
[2020-12-31] MEDS: methocarbamoL 500 MG TAB PO SCH (21:42)
[2021-01-01] MEDS: FENTANYL CITR 100 MCG/2 ML IV PRN ×5 (00:06→19:31)
[2021-01-01] MEDS: NA CHLORIDE 0.9% 1,000 ML IV SCH ×2 (05:42→19:00)
[2021-01-01 06:45] LABS: BUN Blood Urea Nitrogen 8 mg/dL (7-18); Bicarbonate 20 mmol/L (21-32); Glucose Level 92 mg/dL (74-106); Phosphorus 1.3 mg/dL (2.5-4.9); Sodium Level 138 mmol/L (136-145)
[2021-01-01] MEDS: PANTOPRAZOLE 40MG TABLET PO SCH ×3 (07:30→16:30)
[2021-01-01] MEDS: GABAPENTIN 300 MG CAP PO SCH ×3 (08:58→21:55)
[2021-01-01] MEDS: DICYCLOMINE HCL 10 MG CAP PO SCH ×3 (08:59→21:55)
[2021-01-01] MEDS: FAMOTIDINE 20 MG TAB PO SCH (08:59)
[2021-01-01] MEDS: METOPROLOL XL 25 MG TAB PO SCH (08:59)
[2021-01-01] MEDS: TIZANIDINE 4 MG TABLET PO SCH ×3 (08:59→21:57)
[2021-01-01] MEDS: LOSARTAN POTASSIUM 50 MG TABLET PO SCH (08:59)
[2021-01-01] MEDS: predniSONE 20 MG TAB PO SCH (08:59)
[2021-01-01] MEDS: BUSPIRONE HCL 5 MG TABLET PO SCH (08:59)
[2021-01-01] MEDS ORDERED: POTASSIUM PHOS IN 0.9 % NACL 15 MMOL/250 ML BAG IV ONE (09:00)
[2021-01-01] MEDS: ENOXAPARIN 40 MG/0.4 ML SQ SCH (09:00)
[2021-01-01] MEDS ORDERED: POTASSIUM CL SA 10 MEQ TAB PO ONE (09:00)
[2021-01-01] MEDS: DOXYCYCLINE 100 MG in NA CHLORIDE 0.9% 100 ML IVPB SCH ×2 (09:02→21:56)
[2021-01-01] MEDS: DIPHENOX/ATROP SULF 1 TAB PO PRN ×2 (13:49→21:57)
--- NOTE | 2021-01-01 20:16 | P.PN ---
Subjective Date of Service: 12/31/20 Patient with no new complaints. Still with chronic pain. Bronchoscopy on Sunday. Review of Systems 10-point ROS is otherwise unremarkable Physical Examination - Vital Signs Temperature: 98 F Blood Pressure: 120/70 Pulse: 80 Respirations: 18 Pulse Ox (%): 95 - Physical Exam General: Alert, In no apparent distress HEENT: Atraumatic, PERRLA, EOMI Neck: Supple, JVD not distended Respiratory: Clear to auscultation bilaterally, Normal air movement Cardiovascular: Regular rate/rhythm, Normal S1 S2 Gastrointestinal: Normal bowel sounds, No tenderness Musculoskeletal: No tenderness Integumentary: No rashes Neurological: Normal speech, Normal tone, Normal affect Lymphatics: No axilla or inguinal lymphadenopathy - Studies Medications List Reviewed: Yes Assessment & Plan - Problems (Diagnosis) (1) Pneumonia Current Visit: Yes Status: Acute Qualifiers: Pneumonia type: due to group B Streptococcus Laterality: bilateral (2) Crohns disease Onset Date: 11/02/17 Current Visit: No Status: Acute (3) Urinary tract infection Onset Date: 04/19/16 Current Visit: No Status: Acute Qualifiers: - Plan continue with plan of care as mentioned below: 1. Continue with IV antibiotics/discuss with Pulmonary and possible antifungal therapy 2. Awaiting sputum and blood culture 3. Continue with pain control 4. CT with questionable fungal pneumonia; plan for bronchoscopy Sunday 5. Appreciate pulmonary consultation 6. Continue with nebs as needed 7. O2 per protocol 8. Continue with gentle hydration 9. Monitor labs 10. GI and DVT prophylaxis - Advance Directives Does patient have a Living Will: No Does patient have a Durable POA for Healthcare: No - Code Status/Comfort Care Code Status: Full Code
[2021-01-01] MEDS: methocarbamoL 500 MG TAB PO SCH (21:56)
[2021-01-01] MEDS: LORAZEPAM 1 MG TABLET PO PRN (21:57)
[2021-01-01] MEDS: HYDROMORPHONE HCL 1 MG/ML INJ IV PRN (21:58)
[2021-01-02] MEDS: HYDROMORPHONE HCL 1 MG/ML INJ IV PRN ×4 (03:24→20:11)
[2021-01-02 07:06] LABS: Protime INR 1.14
[2021-01-02 07:38] LABS: Absolute Lymphocytes (CBC) 2.2 K/uL (0.7-4.9); Basophils % 0.3 % (0-1.3); Hematocrit 23.6 % (36.0-45.0); Lymphocytes % 33.2 % (15.3-44.8); MPV 7.7 fL (7.6-11.3); RBC Red Blood Cell Count 2.55 M/uL (3.86-4.86)
[2021-01-02 07:42] LABS: BUN Blood Urea Nitrogen 9 mg/dL (7-18); Bicarbonate 23 mmol/L (21-32); Glucose Level 107 mg/dL (74-106); Magnesium 1.6 mg/dL (1.8-2.4); NT PRO-BNP 470 pg/mL (<125); Potassium 3.5 mmol/L (3.5-5.1); Sodium Level 141 mmol/L (136-145)
[2021-01-02] MEDS ORDERED: NA CHLORIDE 0.9% 100 ML ONE (07:55)
[2021-01-02] MEDS ORDERED: POTASSIUM CL SA 10 MEQ TAB PO ONE (08:21)
[2021-01-02] MEDS ORDERED: MAGNESIUM SULFATE 1 gm IVPB 1 GM/100 ML BAG IV ONE (08:22)
[2021-01-02] MEDS: PANTOPRAZOLE 40MG TABLET PO SCH ×3 (09:00→17:13)
[2021-01-02] MEDS: METOPROLOL XL 25 MG TAB PO SCH (09:00)
[2021-01-02] MEDS: DICYCLOMINE HCL 10 MG CAP PO SCH ×3 (09:00→21:29)
[2021-01-02] MEDS: ENOXAPARIN 40 MG/0.4 ML SQ SCH ×2 (09:00→09:02)
[2021-01-02] MEDS: BUSPIRONE HCL 5 MG TABLET PO SCH (09:00)
[2021-01-02] MEDS: GABAPENTIN 300 MG CAP PO SCH ×3 (09:01→21:29)
[2021-01-02] MEDS: predniSONE 20 MG TAB PO SCH ×3 (09:01→21:30)
[2021-01-02] MEDS: FAMOTIDINE 20 MG TAB PO SCH (09:02)
[2021-01-02] MEDS: LOSARTAN POTASSIUM 50 MG TABLET PO SCH (09:03)
[2021-01-02] MEDS: TIZANIDINE 4 MG TABLET PO SCH ×3 (09:03→21:29)
[2021-01-02 09:18] LABS: Urine Appearance Clear (Clear); Urine Bilirubin Negative (Negative); Urine Blood Negative (Negative); Urine Color Yellow (Yellow); Urine Glucose Negative (Negative); Urine Protein Trace (Negative); Urine Specific Gravity 1.025 (1.005-1.030); Urine Urobilinogen 0.2 mg/dL (0.2-1.0)
[2021-01-02 09:20] LABS: Urine Microscopic Reflex ORDER UMIC
[2021-01-02] MEDS: DIPHENOX/ATROP SULF 1 TAB PO PRN (09:21)
[2021-01-02] MEDS: DOXYCYCLINE 100 MG in NA CHLORIDE 0.9% 100 ML IVPB SCH (09:22)
[2021-01-02 09:37] LABS: Urine Bacteria <20 /HPF (<20); Urine RBC <5 /HPF (NONE SEEN)
[2021-01-02 09:38] LABS: Urine Mucus 1+ /HPF (NONE SEEN)
[2021-01-02 09:49] LABS: Blood Morphology Comment NOT SEEN (NOT SEEN); Platelet Estimate ADEQ
[2021-01-02] MEDS ORDERED: VITAMIN K (ADULT) 10 MG/ML SQ ONE (10:44)
[2021-01-02] MEDS ORDERED: DIPHENOX/ATROP SULF 1 TAB PO PRN (14:04)
[2021-01-02] MEDS ORDERED: ALBUMIN HUMAN 25% 100 ML IV ONE (14:55)
[2021-01-02 15:45] LABS: Absolute Lymphocytes (CBC) 1.3 K/uL (0.7-4.9); Basophils % 0.3 % (0-1.3); Hematocrit 26.5 % (36.0-45.0); Lymphocytes % 16.3 % (15.3-44.8); MPV 7.4 fL (7.6-11.3); RBC Red Blood Cell Count 2.85 M/uL (3.86-4.86)
[2021-01-02] MEDS: methocarbamoL 500 MG TAB PO SCH (21:29)
--- NOTE | 2021-01-02 21:46 | P.PN ---
Date of Service: 01/02/21 Subjective Patient's pain is poorly controlled. Patient is requesting IV pain medication but her blood pressure is pretty low. Scheduled for bronchoscopy in the morning. Review of Systems 10-point ROS is otherwise unremarkable Physical Examination - Vital Signs Reviewed - Physical Exam General: Alert, In no apparent distress Respiratory: Clear to auscultation bilaterally, Normal air movement Cardiovascular: Regular rate/rhythm, Normal S1 S2 Gastrointestinal: Normal bowel sounds, No tenderness Neurological: Normal speech, Normal tone, Normal affect Assessment & Plan - Problems (Diagnosis) (1) Pneumonia Current Visit: Yes Status: Acute Qualifiers: Pneumonia type: due to group B Streptococcus Laterality: bilateral (2) Crohns disease Onset Date: 11/02/17 Current Visit: No Status: Acute (3) Urinary tract infection Onset Date: 04/19/16 Current Visit: No Status: Acute Qualifiers: - Plan Continue with plan of care as mentioned below: 1. Continue with IV antibiotics/discuss with Pulmonary and possible antifungal therapy pending bronchoscopy results 2. Awaiting sputum and blood culture 3. Continue with pain control 4. CT with questionable fungal pneumonia; plan for bronchoscopy Sunday 5. Appreciate pulmonary consultation 6. Continue with nebs as needed 7. O2 per protocol 8. Continue with gentle hydration 9. Monitor labs 10. GI and DVT prophylaxis - Advance Directives Does patient have a Living Will: No Does patient have a Durable POA for Healthcare: No - Code Status/Comfort Care Code Status: Full Code
--- NOTE | 2021-01-02 21:46 | P.PN ---
Date of Service: 01/01/21 Subjective Patient with no new complaints. Still with some low back pain but otherwise no new complaints. Respiratory status is stable. Review of Systems 10-point ROS is otherwise unremarkable Physical Examination - Vital Signs Reviewed - Physical Exam General: Alert, In no apparent distress Respiratory: Clear to auscultation bilaterally, Normal air movement Cardiovascular: Regular rate/rhythm, Normal S1 S2 Gastrointestinal: Normal bowel sounds, No tenderness Neurological: Normal speech, Normal tone, Normal affect Assessment & Plan - Problems (Diagnosis) (1) Pneumonia Current Visit: Yes Status: Acute Qualifiers: Pneumonia type: due to group B Streptococcus Laterality: bilateral (2) Crohns disease Onset Date: 11/02/17 Current Visit: No Status: Acute (3) Urinary tract infection Onset Date: 04/19/16 Current Visit: No Status: Acute Qualifiers: - Plan Continue with plan of care as mentioned below: 1. Continue with IV antibiotics/discuss with Pulmonary and possible antifungal therapy pending bronchoscopy results 2. Awaiting sputum and blood culture 3. Continue with pain control 4. CT with questionable fungal pneumonia; plan for bronchoscopy Sunday 5. Appreciate pulmonary consultation 6. Continue with nebs as needed 7. O2 per protocol 8. Continue with gentle hydration 9. Monitor labs 10. GI and DVT prophylaxis - Advance Directives Does patient have a Living Will: No Does patient have a Durable POA for Healthcare: No - Code Status/Comfort Care Code Status: Full Code
[2021-01-02] MEDS: LORAZEPAM 1 MG TABLET PO PRN (22:09)
[2021-01-03] MEDS: HYDROMORPHONE HCL 1 MG/ML INJ IV PRN ×5 (03:55→21:12)
--- NOTE | 2021-01-03 06:00 | P.PN ---
Subjective Date of Service: 01/03/21 Primary Care Provider: none; GI-Dr. Adams; Pain management-Dr. Escobar Chief Complaint: Hypotension Subjective: Improving, Doing well Physical Examination - Vital Signs Temperature: 97 F Blood Pressure: 102/73 Pulse: 88 Respirations: 18 Pulse Ox (%): 95 - Studies Medications List Reviewed: Yes Assessment & Plan Discharge Plan: Home Plan to discharge in: 48 Hours Physician Review Additional Text: COVID: Negative CT Scan: COMPARISON: Thorax Wo Con dated 12/07/2015; Chest Single View dated 12/30/2020 FINDINGS: Chest Wall: No suspicious thyroid nodules or pathologic lymphadenopathy. Lungs: Miliary nodularity bilaterally. There are also patchy areas of predominantly peripheral ground-glass opacities which have air bronchograms. . Pleura: No significant effusions or pneumothorax. Mediastinum/jaycob: No pathologic lymphadenopathy. Pulmonary arteries/Aorta: Limited evaluation without contrast. No aortic aneurysm. Heart: No significant pericardial effusion. Normal heart size. Upper abdomen: No acute abnormality. Bones: No acute abnormality. All CT scans are performed using dose optimization technique as appropriate and may include automated exposure control or mA/KV adjustment according to patient size. IMPRESSION: Bilateral patchy ground-glass and nodular opacities on a background of miliary nodularity. The larger ground-glass and nodular opacities could represent an acute superimposed process such as pneumonia or could be a manifestation of a similar etiology as the miliary nodules. Atypical infectious and inflammatory etiologies are within the differential. Physical Exam General: Alert, In no apparent distress Respiratory: Clear to auscultation bilaterally, Normal air movement Cardiovascular: Regular rate/rhythm, Normal S1 S2 Gastrointestinal: Normal bowel sounds, No tenderness Neurological: Normal speech, Normal tone, Normal affect Impression: Bilateral pneumonia suspicious for fungal infection recently hospitalized for bacteremia and pneumonia Crohn's disease on immunosuppressive therapy Anemia of chronic disease Chronic steroid use Chronic pain GERD Anxiety Plan: Bilateral pneumonia suspicious for fungal infection recently hospitalized for bacteremia and pneumonia: Patient recently hospitalized at [facility] for pneumonia and bacteremia. She apparently was sent home with IV antibiotic therapy. Patient also takes immunosuppressive medication including steroid. Patient to have bronchoscopy today. Blood cultures negative. Will discuss with pulmonology about plan of care. Physical therapy to assess ambulation. Metoprolol discontinued due to low blood pressure. Crohn's disease on immunosuppressive therapy: Continue with Lomotil as needed. Continue Bentyl. Continue with prednisone. Patient is followed closely by GI as an outpatient. Anemia of chronic disease: Overall stable. Will monitor closely. Chronic steroid use: Continue with prednisone. This has been decreased to 10 mg 1 pill twice daily. Chronic pain: Continue with gabapentin, hydrocodone and muscle relaxer. Patient is followed closely by pain management as an outpatient. GERD: Continue Protonix Anxiety: Continue BuSpar and lorazepam. DVT prophylaxis: Lovenox CODE STATUS: Full code Advance care [id number] minutes: Patient desires to go home at discharge Time Spent Managing Pts Care (In Minutes): 55
[2021-01-03 06:37] LABS: BUN Blood Urea Nitrogen 8 mg/dL (7-18); Bicarbonate 23 mmol/L (21-32); Glucose Level 140 mg/dL (74-106); Magnesium 2.2 mg/dL (1.8-2.4); Potassium 4.7 mmol/L (3.5-5.1); Sodium Level 140 mmol/L (136-145)
[2021-01-03] MEDS: PANTOPRAZOLE 40MG TABLET PO SCH ×3 (07:30→15:30)
[2021-01-03] MEDS: BUSPIRONE HCL 5 MG TABLET PO SCH (08:05)
[2021-01-03] MEDS: predniSONE 20 MG TAB PO SCH ×2 (08:05→20:17)
[2021-01-03] MEDS: GABAPENTIN 300 MG CAP PO SCH ×3 (08:05→20:17)
[2021-01-03] MEDS: DICYCLOMINE HCL 10 MG CAP PO SCH ×3 (08:05→20:17)
[2021-01-03] MEDS: TIZANIDINE 4 MG TABLET PO SCH ×3 (08:06→20:16)
[2021-01-03 09:59] LABS: Ferritin 294.9 ng/mL (8-388)
[2021-01-03] MEDS ORDERED: METHYLPREDNISOLONE 40 MG INJ IV ONE (10:00)
[2021-01-03] MEDS ORDERED: Phenylephrine HCl 10 MG/ML 1 ML VIAL ONE ×3 (10:25→11:06)
[2021-01-03] MEDS ORDERED: LIDOCAINE 1% MPF 30 ML VIAL ONE (11:02)
[2021-01-03] MEDS ORDERED: LIDOCAINE VISCOUS 2% SOLN 15 ML UDC ONE (11:02)
[2021-01-03] MEDS ORDERED: LIDOCAINE 4% TOP SOLUTION ONE (11:07)
[2021-01-03] MEDS ORDERED: Ringers Lactate 1,000 ML IV ONE (11:27)
[2021-01-03] MEDS ORDERED: FENTANYL CITR 100 MCG/2 ML ONE (12:17)
[2021-01-03] MEDS ORDERED: LIDOCAINE 1% MPF 5 ML VIAL ONE (12:17)
[2021-01-03] MEDS ORDERED: propofoL 200 MG/20 ML VIAL IV ONE ×2 (12:17)
[2021-01-03] MEDS ORDERED: MIDAZOLAM HCL 2 MG/2 ML INJ ONE ×2 (12:19→12:59)
--- NOTE | 2021-01-03 12:50 | P.OP ---
Date of Service: 01/03/21 (Bronchoscopy right upper and lower lobe transbronchial biopsies including a lavage) Findings and Operative Technique Patient is 45 years of age immunocompromised multiple immunosuppressive therapies admitted with chronic cough shortness of breath and current nodular disease diffuse endoscopy was done to rule out an opportunistic infection Narrative report after obtaining informed consent from Ms. Avila she was premedicated by anesthesia for findings Completely normal bronchoscopy normal upper airway no endobronchial lesions or purulent seen patient tolerated the procedure well did not experience any significant desaturation or hypotension postoperative chest x-ray has been performed Resident sent for stat AFB and fungus
[2021-01-03] MEDS ORDERED: MORPHINE 4 MG/ML SYR ONE (13:03)
[2021-01-03] MEDS: HYDROMORPHONE HCL 1 MG/ML INJ ONE ×2 (13:08→13:22)
--- NOTE | 2021-01-03 13:33 | RAD REPORT ---
EXAM DESCRIPTION: RAD - FLUORO-GUIDE FOR BRONCH UPT1HR - 01/03/2021 1:16 pm CLINICAL HISTORY: Device placement/bronchoscope placement FINDINGS: Three fluoroscopic spot images obtained. Bronchoscope has been placed into the right lung. Fluoroscopy time 163 seconds
--- NOTE | 2021-01-03 14:51 | RAD REPORT ---
EXAM DESCRIPTION: Beckie Single View01/03/2021 2:32 pm CLINICAL HISTORY: Device placement/ bronchoscopy IMPRESSION: A pneumothorax is not present status post bronchoscopy
[2021-01-03] MEDS: methocarbamoL 500 MG TAB PO SCH (20:16)
[2021-01-03] MEDS: LORAZEPAM 1 MG TABLET PO PRN (20:16)
[2021-01-04] MEDS: HYDROMORPHONE HCL 1 MG/ML INJ IV PRN ×3 (03:55→11:26)
--- NOTE | 2021-01-04 05:48 | P.PN ---
Subjective Date of Service: 01/04/21 Primary Care Provider: none; GI-Dr. Adams; Pain management-Dr. Escobar Chief Complaint: Hypotension Subjective: Doing well Physical Examination - Vital Signs Temperature: 98.6 F Blood Pressure: 114/78 Pulse: 66 Respirations: 16 Pulse Ox (%): 96 - Studies Medications List Reviewed: Yes Assessment & Plan Discharge Plan: Home Plan to discharge in: 24 Hours Physician Review Additional Text: COVID: Negative CT Scan: COMPARISON: Thorax Wo Con dated 12/07/2015; Chest Single View dated 12/30/2020 FINDINGS: Chest Wall: No suspicious thyroid nodules or pathologic lymphadenopathy. Lungs: Miliary nodularity bilaterally. There are also patchy areas of predominantly peripheral ground-glass opacities which have air bronchograms. . Pleura: No significant effusions or pneumothorax. Mediastinum/jaycob: No pathologic lymphadenopathy. Pulmonary arteries/Aorta: Limited evaluation without contrast. No aortic aneurysm. Heart: No significant pericardial effusion. Normal heart size. Upper abdomen: No acute abnormality. Bones: No acute abnormality. All CT scans are performed using dose optimization technique as appropriate and may include automated exposure control or mA/KV adjustment according to patient size. IMPRESSION: Bilateral patchy ground-glass and nodular opacities on a background of miliary nodularity. The larger ground-glass and nodular opacities could represent an acute superimposed process such as pneumonia or could be a manifestation of a similar etiology as the miliary nodules. Atypical infectious and inflammatory etiologies are within the differential. Physical Exam General: Alert, In no apparent distress Respiratory: Clear to auscultation bilaterally, Normal air movement Cardiovascular: Regular rate/rhythm, Normal S1 S2 Gastrointestinal: Normal bowel sounds, No tenderness Neurological: Normal speech, Normal tone, Normal affect Impression: Bilateral pneumonia suspicious for fungal infection recently hospitalized for bacteremia and pneumonia status post bronchoscopy Crohn's disease on immunosuppressive therapy Anemia of chronic disease with iron deficiency Chronic steroid use Chronic pain GERD Anxiety Plan: Bilateral pneumonia suspicious for fungal infection recently hospitalized for bacteremia and pneumonia status post bronchoscopy: Patient recently hospitalized at [facility] for pneumonia and bacteremia. She apparently was sent home with IV antibiotic therapy. Patient also takes immunosuppressive medication including steroid. Patient had bronchoscopy yesterday. Await results from findings. Spoke with pulmonology at length. Pulmonology suspects fungal infection. Await recommendations on plan of care. Dissipate home in the next 2448 hrs. Crohn's disease on immunosuppressive therapy: Continue with Lomotil as needed along with Bentyl. Continue with prednisone. Patient is followed closely by GI as an outpatient. Anemia of chronic disease with iron deficiency: Lab reviewed. Will recommend iron daily. Chronic steroid use: Continue with prednisone. This has been decreased to 10 mg 1 pill twice daily. Chronic pain: Continue with gabapentin, hydrocodone and muscle relaxer. Patient is followed closely by pain management as an outpatient. GERD: Continue Protonix Anxiety: Continue BuSpar and lorazepam. DVT prophylaxis: Lovenox CODE STATUS: Full code Advance care [id number] minutes: Home at discharge Time Spent Managing Pts Care (In Minutes): 55
[2021-01-04] MEDS: ENOXAPARIN 40 MG/0.4 ML SQ SCH (07:50)
[2021-01-04] MEDS: predniSONE 20 MG TAB PO SCH (07:50)
[2021-01-04] MEDS: PANTOPRAZOLE 40MG TABLET PO SCH ×3 (07:51→16:07)
[2021-01-04] MEDS: TIZANIDINE 4 MG TABLET PO SCH ×2 (07:51→13:04)
[2021-01-04] MEDS: BUSPIRONE HCL 5 MG TABLET PO SCH (07:51)
[2021-01-04] MEDS: DICYCLOMINE HCL 10 MG CAP PO SCH ×2 (07:51→13:04)
[2021-01-04] MEDS: GABAPENTIN 300 MG CAP PO SCH ×2 (07:51→13:04)
[2021-01-04 11:14] VITALS: O2SAT 98
[2021-01-04] MEDS ORDERED: DULERA 200/5 (MOMETASONE/FORMOTEROL) INHALER IH SCH (12:12)
[2021-01-04 12:24] VITALS: BP 107/73; TEMP 97.3
--- NOTE | 2021-01-04 12:47 | P.DS ---
Admission Date: 12/30/20 Discharge Date: 01/04/21 Primary Care Provider: none; GI-Dr. Adams; Pain management-Dr. Escobar Disposition: ROUTINE DISCHARGE Discharge Condition: GOOD Reason for Admission: Hypotension Consultations: Pulmonary-Dr. Escobar Procedures: COVID: Negative CT Scan: COMPARISON: Thorax Wo Con dated 12/07/2015; Chest Single View dated 12/30/2020 FINDINGS: Chest Wall: No suspicious thyroid nodules or pathologic lymphadenopathy. Lungs: Miliary nodularity bilaterally. There are also patchy areas of predominantly peripheral ground-glass opacities which have air bronchograms. . Pleura: No significant effusions or pneumothorax. Mediastinum/jaycob: No pathologic lymphadenopathy. Pulmonary arteries/Aorta: Limited evaluation without contrast. No aortic aneurysm. Heart: No significant pericardial effusion. Normal heart size. Upper abdomen: No acute abnormality. Bones: No acute abnormality. All CT scans are performed using dose optimization technique as appropriate and may include automated exposure control or mA/KV adjustment according to patient size. IMPRESSION: Bilateral patchy ground-glass and nodular opacities on a background of miliary nodularity. The larger ground-glass and nodular opacities could represent an acute superimposed process such as pneumonia or could be a manifestation of a similar etiology as the miliary nodules. Atypical infectious and inflammatory etiologies are within the differential. Medical problem list: Bilateral methotrexate induced pneumonitis Crohn's disease on immunosuppressive therapy Anemia of chronic disease with iron deficiency Chronic steroid use Chronic pain GERD Anxiety Hypertension Brief History of Present Illness: 45-year-old female with history of Crohn's on immunosuppressive therapy. Patient was sent to the ER due to increasing shortness of breath and cough. CT scan revealed bilateral groundglass opacities. Patient was admitted for further evaluation and treatment. Hospital Course: Patient presented with increased cough, shortness of breath. CT scan revealed bilateral patchy groundglass and nodular opacities. Patient recently hospitalized for pneumonia and bacteremia. She was hospitalized at [facility] and sent home with IV antibiotic therapy. Patient also takes immunosuppressive therapy for Crohn's. Patient previously on methotrexate. Pulmonology was consulted to further evaluate. No evidence of bacterial infection noted. Bronchoscopy was done. No significant changes on bronchoscopy. Initial work-up from bronchoscopy unremarkable for bacteria or fungal infection. Pulmonology suspects bilateral pneumonitis related to methotrexate. Medication has been discontinued. At discharge patient will continue with prednisone 10 mg 1 pill twice daily. The patient will also continue with Dulera 2 puff twice daily and albuterol 2 puffs 3 times a day as needed for shortness of breath. Recommend follow-up with pulmonology within 1 week to follow-up final results on bronchoscopy. Patient may require further evaluation with subspecialty pulmonology to further evaluate methotrexate induced pneumonitis. Patient with Crohn's disease on immunosuppressive therapy. At discharge she viktoria l continue with Lomotil as directed. Patient also takes Bentyl. She will no longer use methotrexate. Recommend follow-up with GI as directed. Patient with anemia of chronic disease with iron deficiency. At discharge patient may continue with iron supplementation daily. Recommend to recheck labCBC in 1 month to monitor progress. Patient on chronic steroid. At discharge patient will continue with prednisone 10 mg 1 pill twice daily. Patient with chronic pain. At discharge we will continue with her medications including gabapentin, hydrocodone and muscle relaxers-methocarbamol, Zanaflex as directed. At discharge a limited supply of Tylenol #3 will be provided. Recommend follow-up with pain management to further address. Precautions in place. Patient with GERD. At discharge we will continue with Dexilant 60 mg daily and Pepcid 20 mg daily Patient with anxiety. At discharge we will continue with BuSpar and lorazepam as directed. Patient with history of hypertension. Patient previously on losartan 50 mg daily and metoprolol 25 mg daily. Both medications were held during the course of her stay. Blood pressures have been well controlled off medication. Rec ommend to discontinue both medications at this time. Recommend to monitor blood pressure daily. Recommend to maintain blood pressure less than 130/80. If blood pressures remain above 140/90 then she may restart her blood pressure medication with the help of her PCP. Education on hypertension provided. Vital Signs/Physical Exam: Temp Pulse Resp BP Pulse Ox 97.3 F 88 16 107/73 97 01/04/21 12:00 01/04/21 12:00 01/04/21 12:00 01/04/21 12:00 01/04/21 12:00 General: Alert, In no apparent distress, Oriented x3, Cooperative HEENT: Atraumatic Neck: Supple Respiratory: Clear to auscultation bilaterally, Normal air movement Cardiovascular: Normal pulses, Regular rate/rhythm Gastrointestinal: Normal bowel sounds, No tenderness, No masses, No rebound, No guarding Musculoskeletal: No erythema, No tenderness, No warmth Integumentary: No tenderness/swelling Neurological: Normal speech, Normal strength at 5/5 x4 extr, Normal tone, Normal affect Laboratory Data at Discharge: WBC 7.90 K/uL (4.3-10.9) D 01/02/21 15:34 Hgb 8.8 g/dL (12.0-15.0) L 01/02/21 15:34 Hct 26.5 % (36.0-45.0) L 01/02/21 15:34 Plt Count 334 K/uL (152-406) D 01/02/21 15:34 PT 13.1 SECONDS (9.5-12.5) H 01/02/21 05:58 INR 1.14 01/02/21 05:58 APTT 34.0 SECONDS (24.3-36.9) 12/30/20 13:15 Sodium 140 mmol/L (136-145) 01/03/21 06:09 Potassium 4.7 mmol/L (3.5-5.1) 01/03/21 06:09 BUN 8 mg/dL (7-18) 01/03/21 06:09 Creatinine 0.50 mg/dL (0.55-1.3) L 01/03/21 06:09 Glucose 140 mg/dL (74-106) H 01/03/21 06:09 Phosphorus 2.7 mg/dL (2.5-4.9) D 01/02/21 05:58 Magnesium 2.2 mg/dL (1.8-2.4) D 01/03/21 06:09 Total Bilirubin 0.4 mg/dL (0.2-1.0) 12/31/20 06:11 AST 22 U/L (15-37) 12/31/20 06:11 ALT 27 U/L (12-78) 12/31/20 06:11 Alkaline Phosphatase 238 U/L (45-117) H 12/31/20 06:11 Troponin I < 0.02 ng/mL (0.0-0.045) 12/30/20 15:01 Home Medications: Buspirone HCl [Buspar] 10 mg PO DAILY 07/08/20 Dicyclomine HCl 20 mg PO TID 07/08/20 Erenumab-Aooe [Aimovig Autoinjector] 140 mg SQ SEECOM 07/08/20 Gabapentin 600 mg PO TID 07/08/20 LORazepam [Ativan*] 1 mg PO BEDTIME PRN 07/08/20 Promethazine Tab [Phenergan*] 25 mg PO Q6HP PRN 07/08/20 predniSONE [Prednisone] 20 mg PO DAILY 07/08/20 Famotidine [Pepcid] 1 tab PO DAILY 07/09/20 Dexlansoprazole [Dexilant] 60 mg PO AC 12/30/20 Diphenox/Atropine [Lomotil*] 1 tab PO PRN PRN 12/30/20 Folic Acid 1 mg PO 12/30/20 Hydrocodone Bit/Acetaminophen [Hydrocodon-Acetaminoph 7.5-325] 1 each PO Q6HR 12/30/20 Tizanidine HCl [Zanaflex] 4 mg PO TID 12/30/20 methocarbamoL [Methocarbamol] 500 mg PO BEDTIME 12/30/20 Albuterol Sulfate [Proair Respiclick] 2 puff IH TID PRN #1 01/04/21 Mometasone/Formoterol [Dulera 200 Mcg/5 Mcg Inhaler] 2 puff IH BID #1 inhaler 01/04/21 New Medications: Mometasone/Formoterol [Dulera 200 Mcg/5 Mcg Inhaler] 2 puff IH BID #1 inhaler Albuterol Sulfate [Proair Respiclick] 2 puff IH TID PRN #1 PRN Reason: Shortness Of Breath Physician Discharge Instructions: Patient presented with increased cough, shortness of breath. CT scan revealed bilateral patchy groundglass and nodular opacities. Patient recently hospitalized for pneumonia and bacteremia. She was hospitalized at [facility] and sent home with IV antibiotic therapy. Patient also takes immunosuppressive therapy for Crohn's. Patient previously on methotrexate. Pulmonology was consulted to further evaluate. No evidence of bacterial infection noted. Bronchoscopy was done. No significant changes on bronchoscopy. Initial work-up from bronchoscopy unremarkable for bacteria or fungal infection. Pulmonology suspects bilateral pneumonitis related to methotrexate. Medication has been discontinued. At discharge patient will continue with prednisone 10 mg 1 pill twice daily. The patient will also continue with Dulera 2 puff twice daily and albuterol 2 puffs 3 times a day as needed for shortness of breath. Recommend follow-up with pulmonology within 1 week to follow-up final results on bronchoscopy. Patient may require further evaluation with subspecialty pulmonology to further evaluate methotrexate induced pneumonitis. Patient with Crohn's disease on immunosuppressive therapy. At discharge she will continue with Lomotil as directed. Patient also takes Bentyl. She will no longer use methotrexate. Recommend follow-up with GI as directed. Patient with anemia of chronic disease with iron deficiency. At discharge patient may continue with iron supplementation daily. Recommend to recheck labCBC in 1 month to monitor progress. Patient on chronic steroid. At discharge patient will continue with prednisone 10 mg 1 pill twice daily. Patient with chronic pain. At discharge we will continue with her medications including gabapentin, hydrocodone and muscle relaxers-methocarbamol, Zanaflex as directed. At discharge a limited supply of Tylenol #3 will be provided. Recommend follow-up with pain management to further address. Precautions in place. Patient with GERD. At discharge we will continue with Dexilant 60 mg daily and Pepcid 20 mg daily Patient with anxiety. At discharge we will continue with BuSpar and lorazepam as directed. Patient with history of hypertension. Patient previously on losartan 50 mg daily and metoprolol 25 mg daily. Both medications were held during the course of her stay. Blood pressures have been well controlled off medication. Recommend to discontinue both medications at this time. Recommend to monitor blood pressure daily. Recommend to maintain blood pressure less than 130/80. If blood pressures remain above 140/90 then she may restart her blood pressure medication with the help of her PCP. Education on hypertension provided. Diet: AHA Activity: Fall precautions Followup: NONE,NONE [Primary Care Provider] - Time spent managing pt's care (in minutes): 55
[2021-01-04] MEDS: HYDROCODONE/APAP 7.5/325 MG TAB PO PRN (14:13)
--- NOTE | 2021-01-04 16:17 | P.PN ---
Subjective Date of Service: 01/04/21 Primary Care Provider: none; GI-Dr. Adams; Pain management-Dr. Escobar Chief Complaint: SOBOE C/o SOBOE and chest pain No fever Review of Systems General: Weakness Respiratory: Shortness of Breath Cardiovascular: Chest Pain Physical Examination - Vital Signs Temperature: 97.3 F Blood Pressure: 107/73 Pulse: 88 Respirations: 16 Pulse Ox (%): 97 - Physical Exam General: Alert, Oriented x3, Moderate distress Respiratory: Clear to auscultation bilaterally Cardiovascular: No edema, Normal pulses - Studies Microbiology Data (last 24 hrs): 12/30/20 13:30 Blood - Blood Aerobic Blood Culture - Final No growth in 5 days. 12/30/20 13:30 Blood - Blood Anaerobic Blood Culture - Final No growth in 5 days. 12/30/20 13:15 Blood - Blood Aerobic Blood Culture - Final No growth in 5 days. 12/30/20 13:15 Blood - Blood Anaerobic Blood Culture - Final No growth in 5 days. Medications List Reviewed: Yes Assessment & Plan - Problems (Diagnosis) (1) Pneumonia Current Visit: Yes Status: Acute Plan: S/p Bronch/ NE of fungal infection. DDX Methotraxate induce lung inhjury. Stopped 6 wks ago/ NE of sepsi/ DC on pred 10 BId and Dulera inhaler F/u with me 2 wks/ VS stable Qualifiers: Pneumonia type: due to group B Streptococcus Laterality: bilateral Physician Review Additional Text: COVID: Negative CT Scan: COMPARISON: Thorax Wo Con dated 12/07/2015; Chest Single View dated 12/30/2020 FINDINGS: Chest Wall: No suspicious thyroid nodules or pathologic lymphadenopathy. Lungs: Miliary nodularity bilaterally. There are also patchy areas of predominantly peripheral ground-glass opacities which have air bronchograms. . Pleura: No significant effusions or pneumothorax. Mediastinum/jaycob: No pathologic lymphadenopathy. Pulmonary arteries/Aorta: Limited evaluation without contrast. No aortic aneurysm. Heart: No significant pericardial effusion. Normal heart size. Upper abdomen: No acute abnormality. Bones: No acute abnormality. All CT scans are performed using dose optimization technique as appropriate and may include automated exposure control or mA/KV adjustment according to patient size. IMPRESSION: Bilateral patchy ground-glass and nodular opacities on a background of miliary nodularity. The larger ground-glass and nodular opacities could represent an acute superimposed process such as pneumonia or could be a manifestation of a similar etiology as the miliary nodules. Atypical infectious and inflammatory etiologies are within the differential. Physical Exam General: Alert, In no apparent distress Respiratory: Clear to auscultation bilaterally, Normal air movement Cardiovascular: Regular rate/rhythm, Normal S1 S2 Gastrointestinal: Normal bowel sounds, No tenderness Neurological: Normal speech, Normal tone, Normal affect Impression: Bilateral pneumonia suspicious for fungal infection recently hospitalized for bacteremia and pneumonia status post bronchoscopy Crohn's disease on immunosuppressive therapy Anemia of chronic disease with iron deficiency Chronic steroid use Chronic pain GERD Anxiety Plan: Bilateral pneumonia suspicious for fungal infection recently hospitalized for bacteremia and pneumonia status post bronchoscopy: Patient recently hospitalized at [facility] for pneumonia and bacteremia. She apparently was sent home with IV antibiotic therapy. Patient also takes immunosuppressive medication including steroid. Patient had bronchoscopy yesterday. Await results from findings. Spoke with pulmonology at length. Pulmonology suspects fungal infection. Await recommendations on plan of care. Dissipate home in the next 2448 hrs. Crohn's disease on immunosuppressive therapy: Continue with Lomotil as needed along with Bentyl. Continue with prednisone. Patient is followed closely by GI as an outpatient. Anemia of chronic disease with iron deficiency: Lab reviewed. Will recommend iron daily. Chronic steroid use: Continue with prednisone. This has been decreased to 10 mg 1 pill twice daily. Chronic pain: Continue with gabapentin, hydrocodone and muscle relaxer. Patient is followed closely by pain management as an outpatient. GERD: Continue Protonix Anxiety: Continue BuSpar and lorazepam. DVT prophylaxis: Lovenox CODE STATUS: Full code Advance care [id number] minutes: Home at discharge
== END 2021-01-04 16:34 | disposition home or self-care (01) | DRG 206 ==
LOC: ER 11:34 → ERHOLD 16:25 → 2ND 20:25
PROVIDERS: ADMIT Hospitalist; ATTEND Hospitalist
PROC: 0B9C8ZX Drainage of Right Upper Lung Lobe, Via Natural or Artificial Opening Endoscopic, Diagnostic (ICD-10-PCS; 2021-01-03)
PROC: 0BDF8ZX Extraction of Right Lower Lung Lobe, Via Natural or Artificial Opening Endoscopic, Diagnostic (ICD-10-PCS; 2021-01-03)
PROC: 0BDC8ZX Extraction of Right Upper Lung Lobe, Via Natural or Artificial Opening Endoscopic, Diagnostic (ICD-10-PCS; 2021-01-03)
PROC: 0B9F8ZX Drainage of Right Lower Lung Lobe, Via Natural or Artificial Opening Endoscopic, Diagnostic (ICD-10-PCS; principal; 2021-01-03 12:00)
DX: J70.4 Drug-induced interstitial lung disorders, unspecified (principal); K50.90 Crohn's disease, unspecified, without complications; N39.0 Urinary tract infection, site not specified; T45.1X5A Adverse effect of antineoplastic and immunosuppressive drugs, initial encounter; Y92.9 Unspecified place or not applicable; D63.8 Anemia in other chronic diseases classified elsewhere; K21.9 Gastro-esophageal reflux disease without esophagitis; D50.9 Iron deficiency anemia, unspecified; F41.9 Anxiety disorder, unspecified; Z79.899 Other long term (current) drug therapy; Z79.52 Long term (current) use of systemic steroids; G89.29 Other chronic pain; Z20.822 Contact with and (suspected) exposure to COVID-19
CPT/HCPCS: 36415; 71045; 71250; 76000; 80048; 80053; 80076; 81003; 81015; 82533; 82607; 82728; 83540; 83605; 83735; 83880; 84100; 84145; 84466; 84484; 85025; 85610; 85730; 86635; 86698; 86850; 86900; 86901; 87015; 87040; 87102; 87116; 87206; 88108; 88305; 88312; 93005; 94010; 96374; 96375; 97161; 99285; J1170; J1650; J2250; J2370; J2543; J2704; J2920; J3010; J3430; J3475; J7030; J7120; J7512; J7606; P9047; U0003

== ENCOUNTER 2021-04-26 09:41 | Inpatient (IN) | payer BC ==
--- OUTSIDE RECORDS SUMMARY | 2021-04-26 10:00 | XMS REPORT | Continuity of Care Document ---
:1975 Author Organization [facility] t Address [address] [place] [address] Care Team Providers Name Role Phone Yariel Fallon Primary Care Physician Delphine Hernandez Attending Clinician Unavailable Gopal Fisher MD Attending Clinician Delphine Redman RN Attending Clinician SANDRITA Attending Clinician Unavailable Niurka Eagle MD Attending Clinician Sandrita MENJIVAR Attending Clinician Quan Kennedy MD Attending Clinician [phone] Pob, Lab Main Attending Clinician Unavailable Debi MENJIVAR Attending Clinician DEBI Attending Clinician Unavailable Doctor Unassigned, Name Attending Clinician Unavailable Carter SHEEHAN, A Attending Clinician Unavailable Lillian MENJIVAR, Ngozi Attending Clinician Jude MENJIVAR Attending Clinician GOPAL FISHER Attending Clinician Unavailable GOPAL FISHER Attending Clinician Unavailable Sayda Hernandez Attending Clinician Zackery MENJIVAR, Elyse Attending Clinician Hari STAUFFER, F Attending Clinician Tung STAUFFER Attending Clinician Pool MENJIVAR Attending Clinician Cesar MENJIVAR Attending Clinician Satya MENJIVAR Attending Clinician JUAN M Attending Clinician Unavailable Vishnu PROGRAM PROFESSIONAL, G Attending Clinician Aba DO, J Attending Clinician Provider, Urgent Care Attending Clinician Unavailable Rolanda PRESSLEY, A Attending Clinician Sadia ORANTES Attending Clinician Unavailable Gramm [employer] INSIDE, A Attending Clinician Rohit PAC, S Attending Clinician Juan M MENJIVAR Attending Clinician 2, Lab Attending Clinician Unavailable LORA GARCIA Attending Clinician Unavailable SANDRITA Admitting Clinician Unavailable Sandrita MENJIVAR Admitting Clinician Jude MENJIVAR Admitting Clinician Pool MENJIVAR Admitting Clinician JILLIAN Admitting Clinician Unavailable Payers Payer Name Policy Type Policy Number Effective Date Expiration Date S ource [employer] [place] - [id number] 2012 00:00:00 OUT OF STATE Problems Condition Condition Condition Status Onset Resolution Last Treating Co mments Source Name Details Category Date Date Treatment Clinician Date Hypokalemi Hypokalemi Disease Active 2020-02 U trinityers a a 0-25 ity of 00:00: [place] [address] Medical Branch Hypotensio Hypotensio Disease Active 2020-02 U carolyn n n 0-24 ity of 00:: [place] [address] Medical Branch Obesity Obesity Disease Active 2020-02 Univers (BMI (BMI 0-24 ity of 30-39.9) 30-39.9) 00:00: [place] [facility] 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 6-02 ity of 00:00: [place] [address] Medical Branch Status Status Disease Active Univers migrainosu migrainosu 5-15 it y of s s 00:00: [place] [address] Medical Branch Pyelonephr Pyelonephr Disease Active U trinityers itis itis 4-18 ity of 00:00: [place] 00 Medical Branch Complicate Complicate Disease Active U nivers d [...] Uni vers xacin ty to See comments 1-13 ity of adverse 00:00: [place] reaction 00 Medical s Branch CIPROFLO DRUG Active Unknown-Cmnt 2018-02 Un matt XACIN INGREDI 1- ity of 00:00: [place] 00 Medical Branch Cefdinir Propensi Active Unknown - Bloody Uni vers ty to See comments 4- diarrhea it y of adverse 00:00: [place] reaction 00 Medical s Branch CEFDINIR DRUG Active Unknown-Cmnt Un matt INGREDI 4-06 ity of 00:00: [place] 00 [facility] Branch Cipro Adverse Active Hives, [facility] Reaction burning [facility] Social History Social Habit Start Date Stop Date Quantity Comments Source History of Snuff User University of tobacco use [facility] History SDOH University o f Alcohol Frequency [facility] edical [place] History [facility] University o f Alcohol Std [place] [facility] Drinks Branch History [facility] o f Alcohol Binge [place] Medic al [place] Exposure to Yes [facility] SARS-CoV-2 [facility] (event) [place] Alcohol intake 2020-12-05 2020-12-05 0 /d University of 00:00:00 00:00:00 [facility] Tobacco use and 2020-07-13 2020-07-13 Never used Universit y of exposure 00:00:00 00:00:00 [facility] Alcohol Comment 2015-06-22 2015-06-22 No alcohol use Unive rsity of 00:00:00 00:00:00 per pt [facility] Sex [birth year] At [birth year] Universit y of 00:00:00 00:00:00 [facility] Smoking Status Start Date Stop Date Source Never smoker [facility] Medications Ordered Filled Start Stop Current Ordering Indication Dosage Frequency Signature Comments Components Source Medication Medication Date Date Medication? Clinician (SIG) Name Name predniSONE 2020-02 Yes 20mg Take 20 mg U nivers 10 mg -02 by mouth ity of tablet 03:45: daily. [place] [address] Medical [place] Hydrocodone 2020-02 Yes 1{tbl} Take 1 Un matt -Acetaminop 1-02 tablet by ity of hen 7.5-300 03:45: mouth 3 [place] mg tablet 04 (three) Medical times Branch daily. tiZANidine 2020-02 Yes 4mg Take 4 mg Un matt 4 mg tablet -02 by mouth 3 it y of 03:45: (three) [place] 04 times Medical daily. Branch foLIC acid 2020-02 Yes 3mg Take 3 mg Un matt 1 mg tablet 02 by mouth ity of 03:45: daily. [address] Branch methocarbam 2020-02 Yes 500mg Take 500 U nivers oL 500 mg -02 mg by ity of tablet 03:45: mouth at [place] [address] bedtime. Medical Branch dicyclomine 2020-02 Yes 20mg Take 20 mg Univers 20 mg 02 by mouth 3 ity of tablet 03:45: (three) [place] 04 times Medical daily. Branch famotidine 2020-02 Yes 40mg Take 40 mg U nivers 40 mg 02 by mouth ity of tablet 03:45: at [place] [address] bedtime. Medical Branch albuterol 2020-02 Yes 2{puff} Inhale 2 U nivers 90 -02 Puffs 3 ity of mcg/actuati 03:45: (three) [place] on inhaler 04 times Medical daily. Branch diphenoxyla 2020-02 Yes 1{tbl} Take 1 Un matt te-atropine 1-02 tablet by ity of (LOMOTIL) 03:45: mouth [place] 2.5-0.025 04 needed. Medical mg tablet Branch Dexlansopra 2020-02 Yes 1{capsu Take 1 U nivers zole 1-02 le} capsule by ity of (DEXILANT) 03:45: mouth [place] 60 mg 04 before Medical capsule meals. Branch predniSONE 2020-02 Yes 20mg Take 20 mg U nivers 10 mg -02 by mouth ity of tablet 03:45: daily. [place] [address] Medical Branch Hydrocodone 2020-02 Yes 1{tbl} Take 1 Un matt -Acetaminop 1-02 tablet by ity of hen 7.5-300 03:45: [...] 02 by mouth ity of 03:45: daily. [place] 04 Medical Branch methocarbam 2020-02 Yes 500mg Take 500 U nivers oL 500 mg 1-02 mg by ity of tablet 03:45: mouth at [place] 04 bedtime. Medical Branch dicyclomine 2020-02 Yes 20mg Take 20 mg Univers 20 mg 02 by mouth 3 ity of tablet 03:45: (three) [place] 04 times Medical daily. Branch famotidine 2020-02 Yes 40mg Take 40 mg U nivers 40 mg 02 by mouth ity of tablet 03:45: at [place] 04 bedtime. Medical Branch albuterol 2020-02 Yes 2{puff} Inhale 2 U nivers 90 1-02 Puffs 3 ity of mcg/actuati 03:45: (three) [place] on inhaler 04 times Medical daily. Branch diphenoxyla 2020-02 Yes 1{tbl} Take 1 Un matt te-atropine 1-02 tablet by ity of (LOMOTIL) 03:45: mouth as [place] 2.5-0.025 04 needed. Medical mg tablet Branch Dexlansopra 2020-02 Yes 1{capsu Take 1 U nivers zole 1-02 le} capsule by ity of (DEXILANT) 03:45: mouth [place] 60 mg 04 before Medical capsule meals. Branch furosemide 2020-02 Yes [id number] 20mg Take 1 U nivers 20 mg 1-01 tablet by ity of tablet 00:00: mouth [place] 00 every Medical Sunday, Branch Sunday and Sunday. furosemide 2020-02 Yes [id number] 20mg Take 1 U nivers 20 mg 1-01 tablet by ity of tablet 00:00: mouth [place] 00 every Medical Sunday, Branch Sunday and Sunday. furosemide 2020-02 Yes [id number] 20mg Take 1 U nivers 20 mg 1-01 tablet by ity of tablet 00:00: mouth [place] 00 every Medical Sunday, Branch Sunday and Sunday. metoprolol 2020-02 Yes 25mg Take 25 mg U nivers succinate 0-31 by mouth ity of (TOPROL XL 16:03: daily. [place] ORAL) Medical Branch inFLIXimab 2020-02 Yes 840mg Inject 840 Univers (REMICADE) 0-31 mg ity of 100 mg 16:03: intravenou [place] injection 38 sly every Medic al 6 (six) Branch weeks. predniSONE 2020-02 Yes 20mg Take 20 mg U nivers 10 mg 0-31 by mouth ity of tablet 16:03: daily. [place] [address] Medical Branch Hydrocodone 2020-02 Yes 1{tbl} Take 1 Un matt -Acetaminop 0-31 tablet by ity of hen 7.5-300 16:03: mouth 3 [place] mg tablet 38 (three) Medical times Branch daily. tiZANidine 2020-02 Yes 4mg Take 4 mg Un matt 4 mg tablet 0-31 by mouth 3 it y of 16:03: (three) [place] [address] times Medical daily. Branch foLIC acid 2020-02 Yes 3mg Take 3 mg Un matt 1 mg tablet 0-31 by mouth ity of 16:03: daily. [place] [address] Medical Branch methocarbam 2020-02 Yes 500mg Take 500 U nivers oL 500 mg 0-31 mg by ity of tablet 16:03: mouth at [place] [address] bedtime. Medical Branch dicyclomine 2020-02 Yes 20mg Take 20 mg Univers 20 mg 0-31 by mouth 3 ity of tablet 16:03: (three) [place] [address] times Medical daily. Branch famotidine 2020-02 Yes 40mg Take 40 mg U nivers 40 mg 0-31 by mouth ity of tablet 16:03: at [place] [address] bedtime. Medical Branch albuterol 2020-02 Yes 2{puff} [...] every Medic al 6 (six) Branch weeks. metoprolol 2020-02 Yes 25mg Take 25 mg [...] :00 weekly. Medical Branch NaCl 0.9% 2020-02- No [id number] 1000mg Infuse Univers (NS) PgBk 0-31 11-11 1,000 mg ity o f 50 mL with 00:00: 05:59 every 12 [place] ceFEPIme 1 00 :00 (twelve) Medic al gram SolR hours for Branc h 1,000 mg 10 days. vancomycin/ 2020-02- No [id number] 1500mg 1,500 mg Univers 0.9 % sod 0-31 11-11 by IV ity of chloride 00:00: 05:59 Infusion [place] (VANCOMYCIN 00 :00 route Medical 1500 MG IN every 24 Branc h NS 500 ML) (twenty-fo 1.5 ur) hours gram/500 mL for 10 Soln days. NaCl 0.9% 2020-02 No [id number] 1000mg Infuse Univers (NS) PgBk 11 1,000 mg ity o f 50 mL with 00:00: 05:59 every 12 [place] ceFEPIme 1 00 :00 (twelve) Medic al gram SolR hours for Branc h 1,000 mg 10 days. vancomycin/ 2020-02 No [id number] 1500mg 1,500 mg Univers 0.9 % sod 11 by IV ity of chloride 00:00: 05:59 [...]
D uration of therapy: 7 days KCL 2020-02 No 40meq 40 mEq, Univers (KLOR-CON 10-30 Oral, ity of M20) tablet 23:30: 01:25 ONCE, 1 [place] 40 mEq 00 :00 dose, On Medical Fri Branch 12/10/20 at 1830, Routine tolvaptan 2020-02 No 15mg 15 mg, Unive rs (SAMSCA) 0 10-30 Oral, ONCE ity of tablet 15 23:30: 01:25 NOW, 1 [place] mg 00 :00 dose, On Medical Fri Branch 12/10/20 at 1830, Routine
outreach team member approving Restricted medication : AGLIJULIETTE NICOLE G sodium 2020-02- No 500mg 0.5 g (500 Uni vers chloride 0- 10-29 mg), Oral, ity of tablet 0.5 22:00: 22:30 TID MEALS, [place] g 00 :42 First dose Medical on Sun12/10/20 at 1700, Until Discontinu ed, Routine ceFEPIme 2020-02 Yes 1000mg 1,000 mg, Un matt (MAXIPIME) 0-29 IV ity of 1,000 mg in 17:45: [facility] [place] NaCl 0.9% 00 Q12H ABX, Medic al (NS) 50 mL First dose [facility] MINI-BAG on Sun12/10/20 at 1245, Until Discontinu ed, Administer over 30 Minutes, 50 mL
Reas on for Anti-Infec tive: Documented Infection< br>Documen karly Infection Site: Skin / Soft Tissue
Duration of Therapy: Other (see Comments) potassium 2020-02- No 30mmol 30 mmol, U nivers phosphate 0- IV ity of 30 mmol in 13:15: 14:16 Piggyback, [place] NaCl 0.9% 00 :00 ONCE, 1 Medical (NS) 150 mL dose, On Bran ch piggyback Sun12/10/20 at 0815 phosphorus 2020-02- No 250mg 1 tablet U nivers (K PHOS 0 10-30 (250 mg), ity of NEUTRAL) 13:00: 15:49 Oral, QID, [place] tablet 1 00 :55 First dose Medic al tablet on Sun12/10/20 at 0800, Until Discontinu ed, Routine KCL 2020-02- No 40meq 40 mEq, Univers (KLOR-CON 0- 10-29 Oral, Q4H, ity of M20) tablet 13:00: 17:44 2 doses, [place] 40 mEq 00 :00 First dose Medical (after Branch last reorder) on Sun12/10/20 at 0800, Last dose on Sun12/10/20 at 1200, Routine aMILoride 2020-02- No 10mg 10 mg, Unive rs (MIDAMOR) 0- 10-30 Oral, BID, ity of tablet 10 01:00: 15:49 First dose [place] mg 00 :55 on [facility] Medical 12/09/20 Branch at 2000, Until Discontinu ed, Routine potassium 2020-02 No 15mmol 15 mmol, U nivers phosphate 12-09 IV ity of 15 mmol in 15:45: 16:34 Piggyback, [place] NaCl 0.9% 00 :00 ONCE, 1 Medical (NS) 150 mL dose, On Bran ch piggyback [facility] 12/09/20 at 1045, 150 mL predniSONE 2020-02 Yes 30mg 30 mg, Unive rs (DELTASONE) 0 Oral, ity of tablet 30 15:00: DAILY, [place] mg 00 First dose Medical on [facility] 12/09/20 at 1000, Until Discontinu ed, Routine calcitrioL 2020-02 Yes .5ug 0.5 mcg, Uni vers (ROCALTROL) Oral, ity of capsule 0.5 15:00: DAILY, [place] mcg 00 First dose Medical on [facility] 12/09/20 at 1000, Until Discontinu ed, Routine KCL 2020-02 No 40meq 40 mEq, Univers (KLOR-CON 12-09 Oral, Q4H, ity of M20) tablet 15:00: 16:35 2 doses, [place] 40 mEq 00 :00 First dose Medical (after Branch last modificati on) on [facility] 12/09/20 at 1000, Last dose on [facility] 12/09/20 at 1200, Routine hydrocortis 2020-02- No 60mg 60 mg, IV Univers one sod 12-09 Piggyback, ity o f succ 13:43: 14:47 DAILY, [place] (CORTEF) 60 13 :30 First dose Me dical mg in NaCl (after Branch 0.9% (NS) last piggyback modificati on) on [facility] 12/09/20 at 0900, Until Discontinu ed, Administer over 30 Minutes, 60 mL iopamidol 2020-02- No [id number] 120mL 120 mL, Univers (ISOVUE 12-08 Intravenou ity o f 370-500 mL) 17:23: 17:24 s, ONCE, 1 [place] injection 00 :00 dose, On Medica l 120 mL [facility] 12/08/20 at 1245, Routine KCL 2020-02- No 20meq 20 mEq, Univers (KLOR-CON 0- Oral, ity of M20) tablet 14:00: 14:47 DAILY, [place] 20 mEq 00 :30 First dose Medical on Sun12/08/20 at 0900, Until Discontinu ed, Routine hydrocortis 2020-02- No 60mg 60 mg, IV Univers one sod 12-09 Piggyback, ity o f succ 01:00: 13:43 Q12H, [place] (CORTEF) 60 00 :20 First dose Me dical mg in NaCl (after Branch 0.9% (NS) last piggyback modificati on) on Sun12/07/20 at 2000, Until Discontinu ed, Administer over 30 Minutes, 60 mL lidocaine 2020-02 Yes 5mL 5 mL, Univers 1% (PF) 0- Subcutaneo ity of (XYLOCAINE) 18:44: us, PRN, [place] injection 5 15 Starting Medi bernadine mL on Sun [place] 12/07/20 at 1344, Until Discontinu ed, Routine, Local anesthesia NaCl 0.9% 2020-02 Yes 10mL 10 mL, Univer s (NS) 0-26 Slow IV ity of injection 17:49: Push, PRN, [place] 10 mL 04 Starting Medical on Sun [place] 12/07/20 at 1249, Until Discontinu ed, Routine, line maintenanc e KCL 2020-02- No 20meq 20 mEq, Univers (KLOR-CON 0- 10- Oral, ity of M20) tablet 14:45: 13:52 ONCE, 1 [place] 20 mEq 00 :00 dose, On Medical Sun [place] 12/07/20 at 0945, Routine diphenoxyla 2020-02 Yes [...] dose, On Medica l mg tablet 1 Sun Branch tablet 12/06/20 at 2315, Routine famotidine 2020-02 Yes 40mg 40 mg, Unive rs (PEPCID AC) 0-26 Oral, QHS, it y of tablet 40 02:00: First dose [place] mg 00 on [facility] Medical 12/06/20 Branch at 2100, Until Discontinu ed, Routine Nitrofurant 2020-02- No 100mg 100 mg, U nivers oin&Nit. 0-07 12- Oral, BID, ity of Macrocryst 01:00: 16:54 First dose [place] (MACROBID) 00 :09 on [facility] Medical 100 mg 12/06/20 [place] capsule 100 at 2000, mg Until Discontinu ed, Routine
Reason for Anti-Infec tive: Documented Infection< br>Documen karly Infection Site: Urine
D uration of Therapy: 7 days lactobacill 2020-02 Yes .5mg 0.5 mg, Uni vers us 0-25 Oral, TID, ity of acidophilus 19:00: First dose [place] tablet 0.5 00 on [facility] Medical mg 12/06/20 Branch at 1400, Until Discontinu ed, Routine diphenoxyla 2020-02- No 1{tbl} 1 tablet, Univers te-atropine 0-12-07 Oral, TID, i ty of (LOMOTIL) 19:00: 02:34 First dose [place] 2.5-0.025 00 :00 (after Medical mg tablet 1 last Branch tablet modificati on) on [facility] 12/06/20 at 1400, Until Discontinu ed, Routine vancomycin 2020-02- No 15mg/kg 1,250 mg Univers 1250 mg in 012-09 (rounded ity of NS 250 mL 18:30: 23:35 from ,305 [place] RTU IV 00 :38 mg = 15 Medical [place] mg/kg ?87 Branc h 1,250 mg kg), IV [place], Q12H ABX, First dose (after last modificati on) on [facility] 12/06/20 at 1330, Until Discontinu ed, Administer over 90 Minutes
Reason for Anti-Infec tive: Empiric Therapy for Suspected Infection< br>Empiric Therapy Site: Blood
D uration of therapy: 7 days metoprolol 2020-02 Yes 25mg 25 mg, Unive rs succinate 0-25 Oral, ity of XL (TOPROL 14:00: DAILY, [place] XL) tablet 00 First dose Med ical 25 mg on [facility] Branch 12/06/20 at 0900, Until Discontinu ed foLIC acid 2020-02 Yes 3mg 3 mg, Univer s (FOLATE) 0-25 Oral, ity of tablet 3 mg 14:00: DAILY, [place] 00 First dose Medical on [facility] Branch 12/06/20 at 0900, Until Discontinu ed, Routine diphenoxyla 2020-02- No 1{tbl} 1 tablet, Univers te-atropine 0-25 10-25 Oral, ity of (LOMOTIL) 14:00: 17:51 DAILY, [place] 2.5-0.025 00 :45 First dose Medi bernadine mg tablet 1 on [facility] tablet 12/06/20 at 0900, Until Discontinu ed, Routine gabapentin 2020-02 Yes 600mg 600 mg, Uni vers (NEURONTIN) 0-25 Oral, TID, it y of tablet 600 13:00: First dose [place] mg 00 on [facility] 12/06/20 Branch at 0800, Until Discontinu ed, Routine hydrocortis 2020-02 No 60mg 60 mg, IV Univers one sod 0-25 -26 Piggyback, ity o f succ 11:00: 22:27 Q8H, First [place] (CORTEF) 60 00 :12 dose on Medic al mg in NaCl [facility] Branch 0.9% (NS) 12/06/20 piggyback at 0600, Until Discontinu ed, Administer over 30 Minutes, 60 mL HYDROcodone 2020-02 Yes 1{tbl} 1 tablet, Univers -acetaminop 0-25 Oral, ity of hen (NORCO) 09:21: Q6HPRN, [place] 10-325 mg 08 Starting Medica l tablet 1 on [facility] Branch tablet 12/06/20 at 0421, Until Discontinu ed, Routine, Pain (scale 7-10) alum-mag 2020-02 Yes 30mL 30 mL, Univers hydroxide-s 0-25 Oral, ity of imeth 09:20: Q6HPRN, [place] (MAALOX 42 Starting Medical PLUS / on Mon Branch MAG-AL 12/06/20 PLUS) at 0420, 200-200-20 [...] IV [place]gy[place], Q12H ABX, First dose on [place] 12/05/20 at 2330, Until Discontinu ed, Administer over 90 Minutes
Reason for Anti-Infec tive: Empiric Therapy for Suspected Infection< br>Empiric Therapy Site: Blood
D uration of therapy: 7 days heparin 2020-02 Yes 5000U 5,000 Univers (porcine) 0-25 Units, ity of injection 03:00: Subcutaneo [place] 5,000 Units 00 us, Q8H, [facility] First dose Branch on [place] 12/05/20 at 2200, Until Discontinu ed, Routine busPIRone 2020-02 Yes 20mg 20 mg, Univer s (BUSPAR) 0-25 Oral, TID, ity o f tablet 20 02:30: First dose [place] mg 00 (after Medical last Branch modificati on) on [place] 12/05/20 at 2130, Until Discontinu ed, Routine morpHINE 2020-02- No 2mg 2 mg, Slow Un matt injection 2 0-25 10-25 IV Push, ity of mg 02:26: 09:22 Q4HPRN, [place] 54 :17 Starting Medical on Sun Branch 12/05/20 at 2126, Until 12/06/20 at 0422, Routine, breakthrou gh proCHLORper 2020-02 Yes 10mg 10 mg, Univ ers azine 0-25 Slow IV ity of (COMPAZINE) 02:25: Push, [place] injection 36 Q6HPRN, Medical 10 mg Starting Branch on 12/05/20 at 2125, Until Discontinu ed, Routine, Nausea and Vomiting (N/V) LORazepam 2020-02 Yes 1mg 1 mg, Univers (ATIVAN) 0-25 Oral, ity of tablet 1 mg 02:21: QHSPRN, [place] 44 Starting Medical on Sun Branch 12/05/20 at 2120, Until Discontinu ed, Routine, Anxiety, Agitation, insomnia HYDROcodone 2020-02- No 7.5mg 7.5 mg, U nivers -acetaminop 0-25 10-25 Oral, ity of hen (HYCET) 02:21: 09:22 Q6HPRN, [place] 7.5-325 29 :17 Starting Medical mg/15 mL on Sun Branch solution 12/05/20 7.5 mg at 2120, Until 12/06/20 at 0422, Pain (scale 7-10) albuterol 2020-02 Yes 2{puff} 2 Puff, Un matt (VENTOLIN) 0-25 Inhalation ity of inhaler 2 02:20: , Q4HPRN, [place] Puff 03 Starting Medical on Sun Branch 12/05/20 at 2120, Until Discontinu ed, Routine, Wheezing, Shortness of Breath potassium 2020-02- No 10meq 10 mEq, IV Univers chloride in 0-25 10-25 Piggyback, i ty of water 10 02:00: 05:59 Q1H, 4 [place] mEq/100 mL 00 :00 doses, Medical RTU 10 mEq First dose Bra nch on 12/05/20 at 2100, Last dose on Sun12/06/20 at 0000, Administer over 60 Minutes, 100 mL magnesium 2020-02- No 2g 2 g, IV Univ ers sulfate in 0-25 10-25 Piggyback, it y of water 2 02:00: 04:57 Q1H, 2 [place] gram/50 mL 00 :00 doses, Medical (4 %) First dose Branch infusion 2 on Sun g 12/05/20 at 2100, Last dose on 12/05/20 at 2200, Routine calcium 2020-02- No 2g 2 g, IV Univer s gluconate 2 0-25 10-25 Infusion, it y of g in NaCl 01:15: 01:32 ONCE, 1 [place] 100 mL 00 :00 dose, On Medical (ISO-OSM) [facility] RTU IV 12/05/20 infusion 2 at 2014, g Routine potassium 2020-02 No 10meq 10 mEq, IV Univers chloride in 0-25 10-25 Piggyback, i ty of water 10 01:00: 03:07 Q1H, 4 [place] mEq/100 mL 00 :43 doses, Medical RTU 10 mEq First dose Bra nch on [place] 12/05/20 at 1999, Last dose on [place] 12/05/20 at 2300, Administer over 60 Minutes, 100 mL KCL 2020-02 No 40meq 40 mEq, Univers (KLOR-CON 0-25 10-25 Oral, Q1H, ity of M20) tablet 01:00: 02:59 2 doses, [place] 40 mEq 00 :00 First dose Medical on [place] Branch 12/05/20 at 2000, Last dose on [place] 12/05/20 at 2100, Routine NaCl 0.9% 2020-02- No 1000mL at 150 Uni vers (NS) IV 0-24 10-26 mL/hr, ity of infusion 22:45: 20:37 Intravenou [place] 1,000 mL 00 :12 s, [facility] Branch , Starting on [place] 12/05/20 at 1745, Until Sun12/07/20 at 1537, Routine piperacilli 2020-02 No 3.375g 3.375 g, Univers n-tazobacta 0-24 10-24 IV ity of m (ZOSYN) 21:45: 21:08 Piggyback, [place] 3.375 g in 00 :00 ONCE, 1 Medica l NaCl 0.9% dose, On Branch (NS) 100 mL [place] MINI-BAG 12/05/20 at 1645, Administer over 30 [...] CONTINUOUS Medic al , Starting Branch on 12/05/20 at 1630, Until 12/05/20 at 1900, Routine NaCl 0.9% 2020-02- No 1000mL at 999 Uni vers (NS) bolus 0-24 10-24 mL/hr, ity of infusion 21:30: 21:43 1,000 mL, [place] 1,000 mL 00 :00 IV Medical Infusion, Branch ONCE, 1 dose, On 12/05/20 at 1630, STAT ondansetron 2020-02 Yes 4mg 4 mg, Slow Univers (ZOFRAN 0-24 IV Push, ity of (PF)) 21:29: Q6HPRN, [place] injection 4 30 Starting Medi bernadine mg on [facility] 12/05/20 at 1629, Until Discontinu ed, Routine, Nausea and Vomiting (N/V) acetaminoph 2020-02 Yes 650mg 650 mg, Un matt en 0-24 Oral, ity of (TYLENOL) 21:29: Q6HPRN, [place] tablet 650 19 Starting Medic al mg on [facility] 12/05/20 at 1629, Until Discontinu ed, Routine, Pain (scale 1-3), Temp > 38.5 C dicyclomine 2020-02- No 20mg Take 20 mg Univers 20 mg 0-24 10-24 by mouth 3 ity of tablet 21:23: 00:00 (three) [place] 29 :00 times Medical daily. Branch erenumab-ao 2020-02- No inject Uni vers oe (AIMOVIG 0-24 10-24 under the it y of AUTOINJECTO 21:23: 00:00 skin. [place] R) 140 29 :00 Medical mg/mL AtIn Branch hydrocortis 2020-02- No 100mg 100 mg, IV Univers one sod 0-24 10-24 Push, ity of succ 21:00: 20:23 ONCE, 1 [place] (CORTEF) 00 :00 dose, On Medical injection Sun Branch 100 mg 12/05/20 at 1600, Routine NaCl 0.9% 2020-02- No 30mL/kg at 999 Un matt (NS) bolus 0-24 10-24 mL/hr, ity of infusion 19:00: 19:44 2,448 mL [place] 2,448 mL 00 :00 (30 mL/kg Medica l ?81.6 kg), Branch IV Infusion, ONCE, 1 dose, On 12/05/20 at 1400, STAT rifAMPin 2020-02 No 300mg Take 300 Uni vers 300 mg 0-20 10-31 mg by ity of capsule 00:00: 00:00 mouth 2 [place] 00 :00 (two) Medical times Branch daily. sulfamethox 2020-02- No 1{tbl} Take 1 U nivers azole-trime 0-20 10-31 tablet by it y of thoprim 00:00: 00:00 mouth 2 [place] 400-80 mg 00 :00 (two) Medical per tablet times Branch daily. AIMOVIG Yes 140mg INJECT 140 Uni vers AUTOINJECTO 8-31 MG UNDER ity of R 140 mg/mL 00:00: THE SKIN [place] AtIn 00 ONCE EVERY Medical MONTH. Branch AIMOVIG 0 Yes 140mg INJECT 140 Uni vers AUTOINJECTO 8-31 MG UNDER ity of R 140 mg/mL 00:00: THE SKIN [place] AtIn 00 ONCE EVERY Medical MONTH. Branch AIMOVIG 0 Yes 140mg INJECT 140 Uni vers AUTOINJECTO 8-31 MG UNDER ity of R 140 mg/mL 00:00: [place] SKIN [place] At[place] 00 ONCE EVERY Medical MONTH. Branch AIMOVIG 0 Yes 140mg INJECT 140 Uni vers AUTOINJECTO 8-31 MG UNDER ity of R 140 mg/mL 00:00: THE SKIN [place] [facility] 00 ONCE EVERY Medical MONTH. Branch AIMOVIG 0 Yes 140mg INJECT 140 Uni vers AUTOINJECTO 8-31 MG UNDER ity of R 140 mg/mL 00:00: THE SKIN [place] [facility] 00 ONCE EVERY Medical MONTH. Branch AIMOVIG 0 Yes 140mg INJECT 140 Uni vers AUTOINJECTO 8-31 MG UNDER ity of R 140 mg/mL 00:00: THE SKIN [place] [facility] 00 ONCE EVERY Medical MONTH. Branch magnesium Yes 400mg 400 mg, Univ ers oxide 6-03 Oral, ity of (MAG-OX 14:00: DAILY, [place] 400) tablet 00 First dose Me dical 400 mg on Prerna [place] 07/15/20 at 0900, Until Discontinu ed, Routine busPIRone 2020-0 Yes 20mg 20 mg, Univer s (BUSPAR) 6-03 Oral, BID, ity o f tablet 20 01:00: First dose [place] mg 00 on Wed [facility] 07/14/20 at Branch 2000, Until Discontinu ed, Routine magnesium 2020-0 Yes [id number] 400mg Take 400 Univers oxide 420 6-03 mg by ity of mg Tab 00:00: mouth [place] 00 [facility] 2020-0 Yes [id number] 400mg Take 400 [facility] oxide 420 6-03 mg by ity of mg Tab 00:00: mouth [place] 00 daily. [facility] magnesium 2020-0 Yes [id number] 400mg Take 400 Univers oxide 420 6-03 mg by ity of mg Tab 00:00: mouth [place] 00 daily. [facility] magnesium 2020-0 Yes [id number] 400mg Take 400 Univers oxide 420 6-03 mg by ity of mg Tab 00:00: mouth [place] 00 daily. [facility] magnesium 2020-0 Yes [id number] 400mg Take 400 [facility] oxide 420 6-03 mg by ity of mg Tab 00:00: mouth [place] 00 daily. [facility] magnesium 2020-0 Yes [id number] 400mg Take 400 [facility] oxide 420 6-03 mg by ity of mg Tab 00:00: mouth [place] 00 daily. Medical [place] magnesium 2020-0 Yes [id number] 400mg Take 400 [facility] oxide 420 6-03 mg by ity of mg Tab 00:00: mouth [place] 00 daily. Medical [place] magnesium 2020-0 Yes [id number] 400mg Take 400 [facility] oxide 420 6-03 mg by ity of mg Tab 00:00: mouth [place] 00 daily. [facility] magnesium 2020-0 Yes [id number] 400mg Take 400 [facility] oxide 420 6-03 mg by ity of mg Tab 00:00: mouth [place] 00 daily. [facility] magnesium 2020-0 Yes [id number] 400mg Take 400 [facility] oxide 420 6-03 mg by ity of mg Tab 00:00: mouth [place] 00 daily. [facility] magnesium 2020-0 Yes [id number] 400mg Take 400 [facility] oxide 420 6-03 mg by ity of mg Tab 00:00: mouth [place] 00 daily. Medical Branch magnesium 2020-0 Yes [id number] 400mg Take 400 [facility] oxide 420 6-03 mg by ity of mg Tab 00:00: mouth [place] 00 daily. Medical Branch magnesium 2020-0 Yes [id number] 400mg Take 400 Univers oxide 420 6-03 mg by ity of mg Tab 00:00: mouth [place] 00 daily. Medical Branch magnesium 2020-0 Yes [id number] 400mg Take 400 [facility] oxide 420 6-03 mg by ity of mg Tab 00:00: mouth [place] 00 daily. Medical Branch magnesium 2020-0 2021- No [id number] 400mg Take 400 [facility] oxide 420 6-03 10-24 mg by ity of mg Tab 00:00: 00:00 mouth [place] 00 :00 daily. Medical Branch metoprolol 2020-0 Yes 25mg Take 25 mg U nivers succinate 6-02 by mouth ity of (TOPROL XL 23:15: daily. [place] ORAL) 16 Medical Branch inFLIXimab 0 Yes 840mg Inject 840 Univers (REMICADE) 6-02 mg ity of 100 mg 23:15: intravenou [place] injection 16 sly every Medic al 14 Branch (fourteen) days. dicyclomine 0 Yes 20mg Take 20 mg Univers 20 mg 6-02 by mouth 3 ity of tablet 23:15: (three) [place] 16 times Medical daily. Branch erenumab-ao Yes inject Univ ers oe (AIMOVIG 6-02 under the ity of AUTOINJECTO 23:15: skin. [place] R) 140 16 Medical mg/mL AtIn Branch metoprolol 0 Yes 25mg Take 25 mg U nivers succinate 6-02 by mouth ity of (TOPROL XL 23:15: daily. [place] ORAL) 16 Medical Branch inFLIXimab 0 Yes 840mg Inject 840 Univers (REMICADE) 6-02 [...] 140 16 Medical mg/mL AtIn Branch metoprolol 0 Yes 25mg Take 25 mg U nivers succinate 6-02 by mouth ity of (TOPROL XL 23:15: daily. [place] ORAL) 16 Medical Branch inFLIXimab 0 Yes 840mg Inject 840 Univers (REMICADE) 6-02 mg ity of 100 mg 23:15: intravenou [place] injection 16 sly every Medic al 14 Branch (fourteen) days. dicyclomine 0 Yes 20mg Take 20 mg Univers 20 mg 6-02 by mouth 3 ity of tablet 23:15: (three) [place] 16 times Medical daily. Branch erenumab-ao Yes inject Univ ers oe (AIMOVIG 6-02 under the ity of AUTOINJECTO 23:15: skin. [place] R) 140 16 Medical mg/mL AtIn Branch LORazepam Yes 2mg 2 mg, Univers (ATIVAN) 6-02 Oral, ity of tablet 2 mg 23:04: QHSPRN, 1 [place] 49 dose, Medical Starting Branch Sun07/14/20 at 1804, Until Discontinu ed, Routine, insomnia [...] erenumab-ao Yes inject Univ ers oe (AIMOVIG 02 under the ity of AUTOINJECTO 18:15: skin. [place] R) 140 16 Medical mg/mL AtIn Branch metoprolol 0 Yes 25mg Take 25 mg U nivers succinate 6-02 by mouth ity of (TOPROL XL 18:15: daily. [place] ORAL) 16 Medical Branch inFLIXimab 0 Yes 840mg Inject 840 Univers (REMICADE) 6-02 mg ity of 100 mg 18:15: intravenou [place] injection 16 sly every Medic al 14 Branch (fourteen) days. dicyclomine 0 Yes 20mg Take 20 mg Univers 20 mg 6-02 by mouth 3 ity of tablet 18:15: (three) [place] 16 times Medical daily. Branch erenumab-ao Yes inject Univ ers oe (AIMOVIG 602 under the ity of AUTOINJECTO 18:15: skin. [place] R) 140 16 Medical mg/mL AtIn Branch metoprolol Yes 25mg Take 25 mg U nivers succinate 6-02 by mouth ity of (TOPROL XL 18:15: daily. [place] ORAL) 16 Medical Branch inFLIXimab 0 Yes 840mg Inject 840 Univers (REMICADE) 6-02 mg ity of 100 mg 18:15: intravenou [place] injection 16 sly every Medic al 14 Branch (fourteen) days. dicyclomine 0 Yes 20mg Take 20 mg Univers 20 mg 6-02 by mouth 3 ity of tablet 18:15: (three) [place] 16 times Medical daily. Branch erenumab-ao Yes inject Univ ers oe (AIMOVIG 02 under the ity of AUTOINJECTO 18:15: skin. [place] R) 140 16 Medical mg/mL AtIn Branch ondansetron Yes 4mg 4 mg, Slow Univers (ZOFRAN 6-02 IV Push, ity of (PF)) 17:21: Q8HPRN, [place] injection 4 18 Starting Medi bernadine mg 07/14/20 Branch at 1221, Until Discontinu ed, Routine, Nausea and Vomiting (N/V) metoclopram Yes 10mg 10 mg, Univ ers marilyn HCl 6-02 Slow IV ity of (REGLAN) 17:00: Push, Q6H, [place] injection 00 First dose Medi bernadine 10 mg (after Branch last reorder) on Sun07/14/20 at 1200, Until Discontinu ed, GIGI ketorolac 2020- No 15mg 15 mg, Unive rs (TORADOL) 07-1403 Slow IV ity of injection 17:00: 16:59 Push, Q6H, [place] 15 mg 00 :00 4 doses, Medical First dose Branch on Sun07/14/20 at 1200, Last dose on Prerna 07/15/20 at 0600, Routine
outreach team member approving Restricted medication : CHRISTINA ROQUE Sliding Yes Subcutaneo Univ ers Scale 07-14 us, TID ity of Insulin - 14:15: MEALS+HS, [place] Lispro 00 First dose Medical (HumaLOG) + on Sun Branch Fs[facility] 07/14/20 at Testing 0915, Until Discontinu ed, Routine predniSONE Yes 80mg 80 mg, Unive rs (DELTASONE) [...] Oral, ity of XL (TOPROL 14:00: DAILY, [place] XL) tablet 00 First dose Med ical 25 mg on Sun Branch 07/14/20 at 0900, Until Discontinu ed heparin Yes 5000U 5,000 Univers (porcine) 07-14 Units, [...] dose, Sun Branch 07/14/20 at 0615, Routine
outreach team member approving Restricted medication : CHRISTINA ROQUE magnesium 2020- No 2g 2 g, IV Univ ers sulfate in 07-14 Piggyback, it y of water 2 11:15: 15:20 ONCE, 1 [place] gram/50 mL 00 :00 dose, Sun Medi bernadine (4 %) 07/14/20 at Branch infusion 2 0615, g Routine NaCl 0.9% Yes 1000mL at 50 Unive rs (NS) IV 602 mL/hr, IV ity of infusion 10:15: Infusion, [place] 1,000 mL 00 CONTINUOUS Medic al , Starting Branch Sun07/14/20 at 0515, Until Discontinu ed, Routine acetaminoph Yes 650mg 650 mg, Un matt en 07-14 Oral, ity of (TYLENOL) 10:11: Q6HPRN, [place] tablet 650 51 Starting Medic al mg Wed 21 Branch at 0511, Until Discontinu ed, Routine, Pain (scale 4-6) docusate Yes 100mg 100 mg, Unive rs (COLACE) 07-14 Oral, ity of capsule 100 10:11: QDAILYPRN, [place] mg 50 Starting Medical Sun07/14/20 Branch at 0511, Until Discontinu ed, Routine, Constipati on diphenhydrA 2020- No 25mg 25 mg, Uni vers MINE 07-14 Slow IV ity of (BENADRYL) 01:00: 09:39 Push, [place] injection 00 :00 ONCE, 1 Medical 25 mg dose, [facility] 07/13/20 at 1999, STAT metoclopram 2020- No 10mg 10 mg, Uni vers marilyn HCl 07-14 Slow IV ity of (REGLAN) 01:00: 09:39 Push, [place] injection 00 :00 ONCE, 1 Medical 10 mg dose, [facility] 07/13/20 at 1999, GIGI amitriptyli Yes [id number] 25mg Take 1 Univers ne 25 mg 6-02 tablet by ity of tablet 00:00: mouth at [place] [address] bedtime. Medical Branch riboflavin, Yes [id number] 400mg Take 400 Univers vitamin B2, 6-02 mg by ity of 400 mg Tab 00:00: mouth [place] 00 daily. Medical Branch amitriptyli Yes [id number] 25mg Take 1 Univers ne 25 mg 6-02 tablet by ity of tablet 00:00: mouth at [place] [address] bedtime. Medical Branch riboflavin, Yes [id number] 400mg Take 400 Univers vitamin B2, 6-02 mg by ity of 400 mg Tab 00:00: mouth [place] 00 daily. Medical Branch amitriptyli Yes [id number] 25mg Take 1 Univers ne 25 mg 6-02 tablet by ity of tablet 00:00: mouth at [place] 00 bedtime. Medical Branch riboflavin, Yes [id number] 400mg Take 400 Univers vitamin B2, 6-02 mg by ity of 400 mg Tab 00:00: mouth [place] 00 daily. Medical Branch amitriptyli Yes [id number] 25mg Take 1 Univers ne 25 mg 6-02 tablet by ity of tablet 00:00: mouth at [place] bedtime. Medical Branch riboflavin, Yes [id number] 400mg Take 400 Univers vitamin B2, 6-02 mg by ity of 400 mg Tab 00:00: mouth [place] 00 daily. Medical Branch amitriptyli Yes [id number] 25mg Take 1 Univers ne 25 mg 6-02 tablet by ity of tablet 00:00: mouth at [place] bedtime. Medical Branch riboflavin, Yes [id number] 400mg Take 400 Univers vitamin B2, 6-02 mg by ity of 400 mg Tab 00:00: mouth [place] 00 daily. Medical Branch amitriptyli Yes [id number] 25mg Take 1 Univers ne 25 mg 6-02 tablet by ity of tablet 00:00: mouth at [place] bedtime. Medical Branch riboflavin, Yes [id number] 400mg Take 400 Univers vitamin B2, 6-02 mg by ity of 400 mg Tab 00:00: mouth daily. Medical Branch amitriptyli Yes [id number] 25mg Take 1 Univers ne 25 mg 6-02 tablet by ity of tablet 00:00: mouth at [place] bedtime. Medical Branch riboflavin, Yes [id number] 400mg Take 400 Univers vitamin B2, 6-02 mg by ity of 400 mg Tab 00:00: mouth [place] daily. Medical Branch amitriptyli Yes [id number] 25mg Take 1 Univers ne 25 mg 6-02 tablet by ity of tablet 00:00: mouth at [place] bedtime. Medical Branch riboflavin, Yes [id number] 400mg Take 400 Univers vitamin B2, 6-02 mg by ity of 400 mg Tab 00:00: mouth [place] 00 daily. Medical Branch amitriptyli Yes [id number] 25mg Take 1 Univers ne 25 mg 6-02 tablet by ity of tablet 00:00: mouth at [place] bedtime. Medical Branch riboflavin, Yes [id number] 400mg Take 400 Univers vitamin B2, 6-02 mg by ity of 400 mg Tab 00:00: mouth [place] 00 daily. Medical Branch amitriptyli Yes [id number] 25mg Take 1 Univers ne 25 mg 6-02 tablet by ity of tablet 00:00: mouth at [place] 00 bedtime. Medical Branch riboflavin, Yes [id number] 400mg Take 400 Univers vitamin B2, 6-02 mg by ity of 400 mg Tab 00:00: mouth [place] 00 daily. Medical Branch amitriptyli Yes [id number] 25mg Take 1 Univers ne 25 mg 6-02 tablet by ity of tablet 00:00: mouth at [place] 00 bedtime. Medical Branch riboflavin, Yes [id number] 400mg Take 400 Univers vitamin B2, 6-02 mg by ity of 400 mg Tab 00:00: mouth [place] 00 daily. Medical Branch amitriptyli Yes [id number] 25mg Take 1 Univers ne 25 mg 6-02 tablet by ity of tablet 00:00: mouth at [place] 00 bedtime. Medical Branch riboflavin, Yes [id number] 400mg Take 400 Univers vitamin B2, 6-02 mg by ity of 400 mg Tab 00:00: mouth [place] 00 daily. Medical Branch amitriptyli Yes [id number] 25mg Take 1 Univers ne 25 mg 6-02 tablet by ity of tablet 00:00: mouth at [place] 00 bedtime. Medical Branch riboflavin, Yes [id number] 400mg Take 400 Univers vitamin B2, 6-02 mg by ity of 400 mg Tab 00:00: mouth [place] 00 daily. Medical Branch amitriptyli Yes [id number] 25mg Take 1 Univers ne 25 mg 6-02 tablet by ity of tablet 00:00: mouth at [place] 00 bedtime. Medical Branch riboflavin, Yes [id number] 400mg Take 400 Univers vitamin B2, 6-02 mg by ity of 400 mg Tab 00:00: mouth [place] 00 daily. Medical Branch amitriptyli 2020- No [id number] 25mg Take 1 Univers ne 25 mg 6-02 10-24 tablet by ity o f tablet 00:00: 00:00 mouth at [place] 00 :00 bedtime. Medical Branch riboflavin, 2020- No [id number] 400mg Take 400 Univers vitamin B2, 6-02 10-24 mg by ity of 400 mg Tab 00:00: 00:00 mouth [place] 00 :00 daily. Medical Branch metoprolol 2020- No 5mg 5 mg, Slow Univers (LOPRESSOR) 07-07 IV Push, ity of injection 5 04:15: 03:20 ONCE, 1 [place] mg 00 :00 dose, [facility] 07/06/20 at Branch 2315, GIGI ondansetron 2020- No 4mg 4 mg, Slow Univers (ZOFRAN 07-07 IV Push, ity of (PF)) 04:15: 03:20 ONCE, 1 [place] injection 4 00 :00 dose, [facility], [facility] Med ical mg 07/06/20 at Branch 2315, GIGI morpHINE 2020- No 4mg 4 mg, Slow Un matt injection 4 07-07 IV Push, ity of mg 04:15: 03:20 ONCE, 1 [place] 00 :00 dose, [facility] 07/06/20 at Branch 2315, STAT LORazepam 2020- No 2mg 2 mg, Univer s (ATIVAN) 07-07 Intramuscu ity of injection 2 03:30: 02:26 lar, ONCE, [place] mg 00 :00 1 dose, Medical [facility] 07/06/20 at 2230, STAT cloNIDine 2020-2020- No .2mg 0.2 mg, Univ ers (CATAPRES) 07-07 Oral, ity of tablet 0.2 03:00: 01:58 ONCE, 1 [place] mg 00 :00 dose, [facility] 07/06/20 at Branch 2200, STAT ondansetron 2020- No 4mg 4 mg, Univ ers (ZOFRAN-ODT 07-07 Oral, ity of ) 02:00: 01:10 ONCE, 1 [place] disintegrat 00 :00 dose, [facility] Med ical ing tablet 07/06/20 at [facility] 4 mg 2100, Routine butorphanol 2020- No 2mg 2 mg, Univ ers (STADOL) 07-07 Intramuscu ity of injection 2 02:00: 01:10 lar, ONCE [place] mg 00 :00 NOW, 1 Medical dose, [facility] 07/06/20 at 2100, Routine ondansetron 2021-0 Yes [id number] 4mg Take 1 Univers (ZOFRAN) 4 5-25 tablet by ity of mg tablet 00:00: mouth [place] 00 every 8 Medical (eight) Branch hours as needed for Nausea and Vomiting (N/V). ondansetron 2020-0 Yes [id number] 4mg Take 1 Univers (ZOFRAN) 4 5-25 tablet by ity of mg tablet 00:00: mouth [place] 00 every 8 Medical (eight) Branch hours as needed for Nausea and Vomiting (N/V). ondansetron 2020-0 Yes [id number] 4mg Take 1 Univers (ZOFRAN) 4 5-25 tablet by ity of mg tablet 00:00: mouth [place] 00 every 8 Medical (eight) Branch hours as needed for Nausea and Vomiting (N/V). ondansetron 2020-0 Yes [id number] 4mg Take 1 Univers (ZOFRAN) 4 5-25 tablet by ity of mg tablet 00:00: mouth [place] 00 every 8 Medical (eight) Branch hours as needed for Nausea and Vomiting (N/V). ondansetron 2020-0 Yes [id number] 4mg Take 1 Univers (ZOFRAN) 4 5-25 tablet by ity of mg tablet 00:00: mouth [place] 00 every 8 Medical (eight) Branch hours as needed for Nausea and Vomiting (N/V). ondansetron 2020-0 Yes [id number] 4mg Take 1 Univers (ZOFRAN) 4 5-25 tablet by ity of mg tablet 00:00: mouth [place] 00 every 8 Medical (eight) Branch hours as needed for Nausea and Vomiting (N/V). ondansetron 2020-0 Yes [id number] 4mg Take 1 Univers (ZOFRAN) 4 5-25 tablet by ity of mg tablet 00:00: mouth [place] 00 every 8 Medical (eight) Branch hours as needed for Nausea and Vomiting (N/V). ondansetron 1-0 Yes [id number] 4mg Take 1 Univers (ZOFRAN) 4 5-25 tablet by ity of mg tablet 00:00: mouth [place] 00 every 8 Medical (eight) Branch hours as needed for Nausea and Vomiting (N/V). ondansetron 2020-0 Yes [id number] 4mg Take 1 Univers (ZOFRAN) 4 5-25 tablet by ity of mg tablet 00:00: mouth [place] 00 every 8 Medical (eight) Branch hours as needed for Nausea and Vomiting (N/V). ondansetron 2020-0 Yes [id number] 4mg Take 1 Univers (ZOFRAN) 4 5-25 tablet by ity of mg tablet 00:00: mouth [place] 00 every 8 Medical (eight) Branch hours as needed for Nausea and Vomiting (N/V). ondansetron 2020-0 Yes [id number] 4mg Take 1 Univers (ZOFRAN) 4 5-25 tablet by ity of mg tablet 00:00: mouth [place] 00 every 8 Medical (eight) Branch hours as needed for Nausea and Vomiting (N/V). ondansetron 2020-0 Yes [id number] 4mg Take 1 Univers (ZOFRAN) 4 5-25 tablet by ity of mg tablet 00:00: mouth [place] 00 every 8 Medical (eight) Branch hours as needed for Nausea and Vomiting (N/V). ondansetron 2020-0 Yes [id number] 4mg Take 1 Univers (ZOFRAN) 4 5-25 tablet by ity of mg tablet 00:00: mouth [place] 00 every 8 Medical (eight) Branch hours as needed for Nausea and Vomiting (N/V). ondansetron 2020-0 Yes [id number] 4mg Take 1 Univers (ZOFRAN) 4 5-25 tablet by ity of mg tablet 00:00: mouth [place] 00 every 8 Medical (eight) Branch hours as needed for Nausea and Vomiting (N/V). ondansetron 2020-0 Yes [id number] 4mg Take 1 Univers (ZOFRAN) 4 5-25 tablet by ity of mg tablet 00:00: mouth [place] 00 every 8 Medical (eight) Branch hours as needed for Nausea and Vomiting (N/V). ondansetron 1-0 Yes [id number] 4mg Take 1 Univers (ZOFRAN) 4 5-25 tablet by ity of mg tablet 00:00: mouth [place] 00 every 8 Medical (eight) Branch hours as needed for Nausea and Vomiting (N/V). ondansetron 2020-0 Yes [id number] 4mg Take 1 Univers (ZOFRAN) 4 5-25 tablet by ity of mg tablet 00:00: mouth [place] 00 every 8 Medical (eight) Branch hours as needed for Nausea and Vomiting (N/V). ondansetron Yes [id number] 4mg Take 1 Univers (ZOFRAN) 4 5-25 tablet by ity of mg tablet 00:00: mouth [place] 00 every 8 Medical (eight) Branch hours as needed for Nausea and Vomiting (N/V). ondansetron Yes [id number] 4mg Take 1 Univers (ZOFRAN) 4 5-25 tablet by ity of mg tablet 00:00: mouth [place] 00 every 8 Medical (eight) Branch hours as needed for Nausea and Vomiting (N/V). ondansetron Yes [id number] 4mg Take 1 Univers (ZOFRAN) 4 5-25 tablet by ity of mg tablet 00:00: mouth [place] 00 every 8 Medical (eight) Branch hours as needed for Nausea and Vomiting (N/V). ondansetron Yes [id number] 4mg Take 1 Univers (ZOFRAN) 4 5-25 tablet by ity of mg tablet 00:00: mouth [place] 00 every 8 Medical (eight) Branch hours as needed for Nausea and Vomiting (N/V). ondansetron 2020- No [id number] 4mg Take 1 Univers (ZOFRAN) 4 5-25 [...] 1 [place] mg 00 :[facility] dose, [facility] at Branch 1615, Routine proMETHazin 2020- No 25mg 25 mg, IV Univers e 07-04 Piggyback, ity of (PHENERGAN) 21:15: 21:15 ONCE, 1 [place] 25 mg in 00 :00 dose, [facility] NaCl 0.9% 07/04/20 at Bran ch (NS) 50 mL 1615, 50 piggyback mL butorphanol 2020- No 1mg 1 mg, IV U nivers (STADOL) 07-04 Push, ity of injection 1 19:30: 19:00 ONCE, 1 [place] mg 00 :[facility] dose, [facility] 07/[facility]20 at Branch 1430, Routine LORazepam 2020- No 1mg 1 mg, Slow U nivers (ATIVAN) 07-04 IV Push, ity of injection 1 19:30: 19:00 ONCE, 1 [place] mg 00 :00 dose, [facility] 07/[facility]20 at Branch 1430, STAT NaCl 0.9% 2020- No 1000mL at 999 Uni vers (NS) IV 07-04 mL/hr, IV ity of infusion 19:30: 20:53 Infusion, [place] 1,000 mL 00 :00 ONCE, 1 Medical dose, [facility] 07/04/20 at 1430, Routine dexamethaso 2020- No 10mg 10 mg, IV Univers ne 07-04 Push, ity of (DECADRON 19:30: 19:02 ONCE, 1 [place] PHOSPHATE) 00 :00 dose, [facility] bernadine injection 07/04/20 at [facility] 10 mg 1430, STAT butalbital- 2020- No 2{tbl} 2 tablet, Univers acetaminoph 07-04 Oral, ity of en-caff 19:30: 18:40 ONCE, 1 [place] (ESGIC) 00 :00 dose, [facility] 50-325-40 07/04/20 at Bran ch mg tablet 2 1430, tablet Routine butalbital- Yes [id number] 1{tbl} Take 1 Univers acetaminoph 5-23 tablet by ity of en-caff 00:00: mouth [place] 50-325-40 00 every 6 Medical mg tablet (six) Branch hours as needed for Pain (scale 7-10). butalbital- Yes [id number] 1{tbl} Take 1 Univers acetaminoph 5-23 tablet by ity of en-caff 00:00: mouth [place] 50-325-40 00 every 6 Medical mg tablet (six) Branch hours as needed for Pain (scale 7-10). butalbital- Yes [id number] 1{tbl} Take 1 [facility] acetaminoph 5-23 tablet by ity of en-caff 00:00: mouth [place] 50-325-40 00 every 6 Medical mg tablet (six) Branch hours as needed for Pain (scale 7-10). butalbital- Yes [id number] 1{tbl} Take 1 Univers acetaminoph 5-23 tablet by ity of en-caff 00:00: mouth [place] 50-325-40 00 every 6 Medical mg tablet (six) Branch hours as needed for Pain (scale 7-10). butalbital- Yes [id number] 1{tbl} Take 1 Univers acetaminoph 5-23 tablet by ity of en-caff 00:00: mouth [place] 50-325-40 00 every 6 Medical mg tablet (six) Branch hours as needed for Pain (scale 7-10). butalbital- Yes [id number] 1{tbl} Take 1 Univers acetaminoph 5-23 tablet by ity of en-caff 00:00: mouth [place] 50-325-40 00 every 6 Medical mg tablet (six) Branch hours as needed for Pain (scale 7-10). butalbital- Yes [id number] 1{tbl} Take 1 Univers acetaminoph 5-23 tablet by ity of en-caff 00:00: mouth [place] 50-325-40 00 every 6 Medical mg tablet (six) Branch hours as needed for Pain (scale 7-10). butalbital Yes [id number] 1{tbl} Take 1 Univers acetaminoph 5-23 tablet by ity of en-caff 00:00: mouth [place] 50-325-40 00 every 6 Medical mg tablet (six) Branch hours as needed for Pain (scale 7-10). butalbital Yes [id number] 1{tbl} Take 1 Univers acetaminoph 5-23 tablet by ity of en-caff 00:00: mouth [place] 50-325-40 00 every 6 Medical mg tablet (six) Branch hours as needed for Pain (scale 7-10). butalbital- Yes [id number] 1{tbl} Take 1 Univers acetaminoph 5-23 tablet by ity of en-caff 00:00: mouth [place] 50-325-40 00 every 6 Medical mg tablet (six) Branch hours as needed for Pain (scale 7-10). butalbital Yes [id number] 1{tbl} Take 1 Univers acetaminoph 5-23 tablet by ity of en-caff 00:00: mouth [place] 50-325-40 00 every 6 Medical mg tablet (six) Branch hours as needed for Pain (scale 7-10). butalbital Yes [id number] 1{tbl} Take 1 Univers acetaminoph 5-23 tablet by ity of en-caff 00:00: mouth [place] 50-325-40 00 every 6 Medical mg tablet (six) Branch hours as needed for Pain (scale 7-10). butalbital Yes [id number] 1{tbl} Take 1 Univers acetaminoph 5-23 tablet by ity of en-caff 00:00: mouth [place] 50-325-40 00 every 6 Medical mg tablet (six) Branch hours as needed for Pain (scale 7-10). butalbital- Yes [id number] 1{tbl} Take 1 Univers acetaminoph 5-23 tablet by ity of en-caff 00:00: mouth [place] 50-325-40 00 every 6 Medical mg tablet (six) Branch hours as needed for Pain (scale 7-10). butalbital- Yes [id number] 1{tbl} Take 1 Univers acetaminoph 5-23 tablet by ity of en-caff 00:00: mouth [place] 50-325-40 00 every 6 Medical mg tablet (six) Branch hours as needed for Pain (scale 7-10). butalbital- Yes [id number] 1{tbl} Take 1 Univers acetaminoph 5-23 tablet by ity of en-caff 00:00: mouth [place] 50-325-40 00 every 6 Medical mg tablet (six) Branch hours as needed for Pain (scale 7-10). butalbital- Yes [id number] 1{tbl} Take 1 Univers acetaminoph 5-23 tablet by ity of en-caff 00:00: mouth [place] 50-325-40 00 every 6 Medical mg tablet (six) Branch hours as needed for Pain (scale 7-10). butalbital- Yes [id number] 1{tbl} Take 1 Univers acetaminoph 5-23 tablet by ity of en-caff 00:00: mouth [place] 50-325-40 00 every 6 Medical mg tablet (six) Branch hours as needed for Pain (scale 7-10). butalbital- Yes [id number] 1{tbl} Take 1 Univers acetaminoph 5-23 tablet by ity of en-caff 00:00: mouth [place] 50-325-40 00 every 6 Medical mg tablet (six) Branch hours as needed for Pain (scale 7-10). butalbital- Yes [id number] 1{tbl} Take 1 Univers acetaminoph 5-23 tablet by ity of en-caff 00:00: mouth [place] 50-325-40 00 every 6 Medical mg tablet (six) Branch hours as needed for Pain (scale 7-10). butalbital- Yes [id number] 1{tbl} Take 1 Univers acetaminoph 5-23 tablet by ity of en-caff 00:00: mouth [place] 50-325-40 00 every 6 Medical mg tablet (six) Branch hours as needed for Pain (scale 7-10). butalbital- Yes [id number] 1{tbl} Take 1 Univers acetaminoph 5-23 tablet by ity of en-caff 00:00: mouth [place] 50-325-40 00 every 6 Medical mg tablet (six) Branch hours as needed for Pain (scale 7-10). butalbital- 2020- No [id number] 1{tbl} Take 1 Univers acetaminoph 5-23 10-24 tablet by it y of en-caff 00:00: 00:00 mouth [place] 50-325-40 00 :00 every 6 Medical mg tablet (six) Branch hours as needed for Pain (scale 7-10). busPIRone Yes 20mg 20 mg, Univer s (BUSPAR) 5-18 Oral, TID, ity o f tablet 20 01:00: First dose [place] mg 00 (after Medical last Branch modificati on) on Sun06/28/20 at 1999, Until Discontinu ed, Routine gabapentin Yes 600mg 600 mg, Uni vers (NEURONTIN) 5-18 Oral, TID, it y of tablet 600 01:00: First dose [place] mg 00 (after Medical last Branch modificati on) on Sun06/28/20 at 1999, Until Discontinu ed, Routine metoprolol Yes 25mg Take 25 mg U nivers succinate 5-18 by mouth ity of (TOPROL XL 00:16: daily. [place] ORAL) 46 Medical Branch inFLIXimab Yes 840mg Inject 840 Univers (REMICADE) 5-18 [...] daily. [place] ORAL) 46 Medical Branch inFLIXimab 0 Yes 840mg Inject 840 Univers (REMICADE) 5-18 mg ity of 100 mg 00:16: intravenou [place] injection 46 sly every Medic al 14 Branch (fourteen) days. dicyclomine 2020-0 Yes 20mg Take 20 mg Univers 20 mg 5-18 by mouth 3 ity of tablet 00:16: (three) [place] 46 times Medical daily. Branch erenumab-ao 0 Yes inject Univ ers oe (AIMOVIG 5-18 under the ity of AUTOINJECTO 00:16: skin. [place] R) 140 46 Medical mg/mL AtIn Branch ondansetron 0 2020- No 4mg Take 4 mg Univers (ZOFRAN 5-17 05-17 by mouth ity of ODT) 4 mg 21:55: 00:00 every 8 [place] disintegrat 40 :00 (eight) Medic al ing tablet hours as Branc h needed. busPIRone 0 2020- No 15mg Take 15 mg U nivers 15 mg 5-17 05-17 by mouth 3 ity of tablet 21:55: 00:00 (three) [place] 40 :00 times Medical daily. Branch butorphanol 2020- No 1mg 1 mg, IV U nivers (STADOL) 06-28 Push, ity of injection 1 21:41: 22:04 ONCE, 1 [place] mg 00 :00 dose, [facility] 06/28/20 at Branch 1645, Routine loperamide 2020- No 2mg 2 mg, Unive rs (IMODIUM 06-28 Oral, ity of A-D) 21:30: 22:26 ONCE, 1 [place] capsule 2 00 :00 dose, Mon Medic al mg 06/28/20 at Branch 1630, Routine LORazepam Yes 1mg 1 mg, Univers (ATIVAN) 06-28 Oral, ity of tablet 1 mg 20:40: QHSPRN, 2 [place] 49 doses, Medical Starting [facility] 06/28/20 at 1540, Until Discontinu ed, Routine, Anxiety butorphanol 2020- No 1mg 1 mg, IV U nivers (STADOL) 06-28 Push, ity of injection 1 15:35: 20:07 ONCE, 1 [place] mg 00 :00 dose, [facility] 06/28/20 at Branch 1045, Routine proMETHazin Yes 25mg 25 mg, IV U nivers e 06-28 Piggyback, ity of (PHENERGAN) 13:15: Q6HPRN, [place] 25 mg in 38 Starting Medical NaCl 0.9% [facility] (NS) 50 mL 06/28/20 at IV 0815, piggyback Until Discontinu ed, Routine, Nausea and Vomiting (N/V) hydrOXYzine Yes 10mg 10 mg, Univ ers (ATARAX) 06-28 Oral, ity of tablet 10 06:58: Q6HPRN, [place] mg 54 Starting Medical [facility] 06/28/20 at 0158, Until Discontinu ed, Routine, Anxiety melatonin Yes 3mg 3 mg, Univers (MELATIN) 06-28 Oral, QHS, ity of tablet 3 mg 02:00: First dose [place] 00 on [facility] 06/27/20 at Branch 2100, Until Discontinu ed, Routine butalbital- 2021-0 Yes 1{tbl} 1 tablet, Univers acetaminoph 5-17 Oral, ity of en-caff 01:06: Q6HPRN, [place] (ESGIC) 14 Starting Medical 50-325-40 Sun Branch mg tablet 1 06/27/20 at tablet 2006, Until Discontinu ed, Routine, headache NaCl 0.9% 2020-0 2020- No 250mL at 999 Univ ers (NS) bolus 5-17 05-17 mL/hr, 250 it y of infusion 00:30: 00:30 mL, IV [place] 250 mL 00 :00 Piggyback, Medical ONCE, 1 Branch dose, 06/27/20 at 1930, STAT gabapentin 2020-0 Yes 600mg Take 1 Univ ers 600 mg 5-17 tablet by ity of tablet 00:00: mouth 3 [place] (three) Medical times Branch daily. cyclobenzap 2020-0 Yes 5mg Take 1 Univ ers rine 5 mg 5-17 tablet by ity o f tablet 00:00: mouth 3 [place] 00 (three) Medical times Branch daily. busPIRone 2020-0 Yes 20mg Take 2 Univer s 10 mg 5-17 tablets by ity of tablet 00:00: mouth 3 [place] 00 (three) Medical times Branch daily. LORazepam 1 2020-0 Yes 1mg Take 1 Univ ers mg tablet 5-17 tablet by ity o f 00:00: mouth at [place] 00 bedtime as Medical needed for Branch [...] by ity of tablet 00:00: mouth 3 [place] 00 (three) Medical times Branch daily. cyclobenzap 2020-0 Yes 5mg Take 1 Univ ers rine 5 mg 5-17 tablet by ity o f tablet 00:00: mouth 3 [place] 00 (three) Medical times Branch daily. busPIRone 2020-0 Yes 20mg Take 2 Univer s 10 mg 5-17 tablets by ity of tablet 00:00: mouth 3 (three) Medical times Branch daily. LORazepam 1 2020-0 Yes 1mg Take 1 Univ ers mg tablet 5-17 tablet by ity o f 00:00: mouth at [place] 00 bedtime as Medical needed for Branch [...] by ity o f 00:00: mouth at [place] 00 bedtime as Medical needed for Branch [...] for Other Medical (Headache) Branch . proMETHazin 1-0 Yes 12.5mg Take 0.5 Univers e 25 [...] needed for Nausea and Vomiting (N/V). gabapentin -0 Yes 600mg Take 1 Univ ers 600 [...] mouth (three) Medical times Branch daily. cyclobenzap 202-0 Yes 5mg Take 1 Univ ers rine 5 mg 5-17 tablet by ity o f tablet 00:00: mouth (three) Medical times Branch daily. busPIRone 1-0 Yes 20mg Take 2 Univer s 10 [...] by ity o f 00:00: mouth at [place] 00 bedtime as Medical needed for Branch [...] 3 00 (three) Medical times Branch daily. LORazepam [...] Branch Anxiety or Agitation (insomnia) . proMETHazin 1-0 Yes 12.5mg Take 0.5 Univers e 25 [...] ity o f tablet 00:00: mouth 3 [place] 00 (three) Medical times Branch daily. busPIRone [...] Branch Anxiety or Agitation (insomnia) . proMETHazin 2021-0 Yes 12.5mg Take 0.5 [...] by ity o f 00:00: mouth at [place] 00 bedtime as Medical needed for Branch [...] :00 (three) Medical times Branch daily. ubrogepant 2020- No 50mg Take 50 mg Univers (UBRELVY) 5-17 10-24 by mouth ity o f 50 mg Tab 00:00: 00:00 as needed [place] 00 :00 for Other Medical (Headache) Branch . ondansetron 2020- No 4mg 4 mg, Slow Univers (ZOFRAN 5-16 05-17 IV Push, ity of (PF)) 21:25: 13:15 Q6HPRN, [place] injection 4 04 :50 Starting Medi bernadine mg [place] Branch 06/27/20 at 1625, Until 06/28/20 at 0815, Routine, Nausea and Vomiting (N/V) cyclobenzap Yes 5mg 5 mg, Unive rs rine 5-16 Oral, TID, ity of (FLEXERIL) 16:00: First dose [place] tablet 5 mg 00 on [facility] 06/27/20 at Branch 1100, Until Discontinu ed, Routine ibuprofen 0 Yes 600mg 600 mg, Univ ers (IBU) 5-16 Oral, ity of tablet 600 15:49: Q6HPRN, [place] mg 19 Starting Medical [place] Branch 06/27/20 at 1049, Until Discontinu ed, Routine, Pain (scale 4-6) pantoprazol 0 Yes 40mg 40 mg, Univ ers e 5-16 Oral, ity of (PROTONIX) 14:00: DAILY, [place] EC tablet 00 First dose Medi bernadine 40 mg on [facility] 06/27/20 at 0900, Until Discontinu ed, Routine losartan Yes 50mg 50 mg, Univers (COZAAR) 5-16 Oral, ity of tablet 50 14:00: DAILY, [place] mg 00 First dose Medical on [facility] 06/27/20 at 0900, Until Discontinu ed, Routine metoprolol Yes 25mg 25 mg, Unive rs succinate 5-16 Oral, ity of XL (TOPROL 14:00: DAILY, [place] XL) tablet 00 First dose Med ical 25 mg on [facility] 06/27/20 at 0900, Until Discontinu ed azaTHIOprin Yes 150mg 150 mg, Un matt e (IMURAN) 5-16 Oral, ity of tablet 150 14:00: DAILY, [place] mg 00 First dose Medical on [facility] 06/27/20 at 0900, Until Discontinu ed, Routine heparin Yes 5000U 5,000 Univers (porcine) 5-16 Units, ity of injection 13:00: Subcutaneo [place] 5,000 Units 00 us, Q12H, Med ical First dose Branch on [place] 06/27/20 at 0800, Until Discontinu ed, Routine dicyclomine Yes 20mg 20 mg, Univ ers (BENTYL) 5-16 Oral, TID, ity o f tablet 20 13:00: First dose [place] mg [facility] on [facility] 06/[facility]/20 at Branch 0800, Until Discontinu ed, Routine gabapentin 0 2020- No 400mg 400 mg, Un matt (NEURONTIN) 06-27 05-17 Oral, TID, i ty of capsule 400 13:00: 20:40 First dose [place] mg 00 :15 on [facility] 06/27/20 at Branch 0800, Until Discontinu ed, Routine morpHINE 2020-0 2020- No 2mg 2 mg, Slow Un matt injection 2 06-27 05-16 IV Push, ity of mg 10:00: 09:07 ONCE, 1 [place] 00 :00 dose, [facility] 06/27/20 at Branch 0500, GIGI LORazepam 2020-0 2020- No 2mg 2 mg, Univer s (ATIVAN) 06-27 Oral, ity of tablet 2 mg 06:00: 08:58 ONCE, 1 [place] 00 :00 dose, [facility] 06/27/20 at Branch 0100, Routine gabapentin 2020- No 600mg 600 mg, Un matt (NEURONTIN) 06-27 Oral, ity of tablet 600 05:00: 04:03 ONCE, 1 [place] mg 00 :00 dose, [facility] 06/27/20 at Branch 0000, GIGI magnesium 2020- No 2g 2 g, IV Univ ers sulfate in 06-27 Piggyback, it y of water 2 04:15: 06:10 ONCE, 1 [place] gram/50 mL 00 :00 dose, Sat Medi bernadine (4 %) 06/26/20 at [place] infusion 2 2315, GIGI g valproate 2020- No 500mg 500 mg, IV Univers (DEPACON) 06-27 Piggyback, ity of 500 mg in 04:15: 04:54 ONCE, 1 [place] D5W 00 :00 dose, [facility] Medical piggyback 06/26/20 at [facility] ch 2315, 100 mL LORazepam 2020- No 1mg 1 mg, Univer s (ATIVAN) 06-27 Oral, QHS, ity of tablet 1 mg 04:00: 01:27 2 doses, [place] 00 :00 First dose Medical (after Branch last modificati on) on [facility] 06/26/20 at 2300, Last dose on [place] 06/27/20 at 2100, Routine proMETHazin 2020- No [...] inFLIXimab 04 :00 Medical 100 mg [facility] [place] acetaminoph Yes 650mg 650 mg, Un matt [...] 06-27 IV ity of (PHENERGAN) 01:15: 00:18 [facility], [place] 12.5 mg in 00 :00 ONCE, 1 Medica l NaCl 0.9% dose, Sat Branc h (NS) 50 mL 06/26/20 at piggyback 2014, 50 mL morpHINE 2020- No 4mg 4 mg, Slow Un matt injection 4 06-27 IV Push, ity of mg 01:15: 00:18 ONCE, 1 [place] 00 :00 dose, Sat Medical 06/26/20 at Branch 2014, STAT iopamidol 2020- No [id number] 100mL 100 mL, Univers (ISOVUE 06-26 Intravenou ity o f 370-500 mL) 23:15: 22:07 s, ONCE, 1 [place] injection 00 :00 dose, Sat Medic al 100 mL 06/26/20 at Branch 1815, Routine ondansetron 2020- No 4mg 4 mg, Slow Univers (ZOFRAN 06-26 IV Push, ity of (PF)) 22:15: 21:24 ONCE, 1 [place] injection 4 00 :00 dose, Sat Med ical mg 06/26/20 at Branch 1715, GIGI butalbital- 2020- No 1{tbl} 1 tablet, Univers acetaminoph 06-26 Oral, ONCE i ty of en-caff 22:15: 21:26 NOW, 1 [place] (ESGIC) 00 :00 dose, Sat Medical 50-325-40 06/26/20 at Bran ch mg tablet 1 171, GIGI tablet nitroglycer 2020- No .4mg 0.4 mg, Un matt in 06-26 Sublingual ity of (NITROSTAT) 22:15: 21:26 , ONCE, 1 [place] sublingual 00 :00 dose, Sat Medi bernadine tablet 0.4 06/26/20 at Bra nch mg 171, GIGI magnesium 2020- No 2g 2 g, IV Univ ers sulfate in 06-26 Piggyback, it y of water 2 22:15: 23:46 ONCE, 1 [place] gram/50 mL 00 :00 dose, Sat Medi [...] IV ity of (BENADRYL) 21:30: 20:31 Push, [place] injection 00 :00 ONCE, 1 Medical 25 mg dose, Sat Branch 06/26/20 at 1630, STAT metoclopram 2020- No 10mg 10 mg, Uni vers marilyn HCl 06-26 Slow IV ity of (REGLAN) 21:30: 20:30 Push, [place] injection 00 :00 ONCE, 1 Medical 10 mg dose, Sat [place] 06/26/20 at 1630, GIGI ketorolac 2020- No 30mg 30 mg, Unive rs (TORADOL) 06-26-15 Slow IV ity of injection 21:30: 20:31 Push, [place] 30 mg 00 :00 ONCE, 1 Medical dose, Sat [place] 06/26/20 at 1630, GIGI
Fa culty member approving Restricted medication : EMERGENCY ROOM, NaCl 0.9% 2020- No 1000mL at 999 Uni vers (NS) bolus 06-26- mL/hr, ity of infusion 20:30: 22:32 1,000 mL, [place] 1,000 mL 00 :00 IV Medical Infusion, Branch ONCE, 1 dose, 06/26/20 at 1530, GIGI aspirin No 325mg 325 mg, Unive rs tablet [...] daily. [place] ORAL) 47 Medical Branch inFLIXimab Yes 840mg Inject 840 Univers (REMICADE) 4-21 [...] erenumab-ao Yes inject Univ ers oe (AIMOVIG 06-02 under the ity of AUTOINJECTO 16:54: skin. [place] R) 140 47 Medical mg/mL AtIn [place] phenazopyri 2020- No 200mg 200 mg, U nivers dine 06-02- Oral, ity of (PYRIDIUM) 04:15: 03:34 ONCE, 1 [place] tablet 200 00 :00 dose, Tue Medi bernadine mg 06/01/20 at Branch 2315, Routine pantoprazol 2020- No [id number] 40mg Take 1 Univers e 40 mg EC 06-02 tablet by ity of tablet 00:00: 04:59 mouth [place] 00 :00 daily for Medical 30 days. [place] pantoprazol 2020- No [id number] 40mg Take 1 Univers e 40 mg EC 06-02 tablet by ity of tablet 00:00: 04:59 mouth [place] 00 :00 daily for Medical 30 days. [place] pantoprazol 2020- No [id number] 40mg Take 1 Univers e 40 mg EC 06-02 tablet by ity of tablet 00:00: 04:59 mouth [place] 00 :00 daily for Medical 30 days. [place] HYDROcodone 2020- No [id number] 1{tbl} Take 1 U nivers -acetaminop 06-02-29 tablet by it y of hen 10-325 00:00: 04:59 mouth [place] mg tablet 00 :00 every 6 Medical (six) Branch hours as needed for Pain (scale 4-6) for up to 7 days. Indication s: acute pain proMETHazin 2020- No [id number] 25mg Take 1 Univers e 25 mg 06-02-27 tablet by ity of tablet 00:00: 04:59 mouth [place] 00 :00 every 6 Medical (six) Branch hours as needed for Nausea and Vomiting (N/V) for up to 5 days. 1 or 2 tablets ibuprofen Yes 600mg 600 mg, Univ ers (IBU) 4-20 Oral, Q6H, ity of tablet 600 19:15: First dose [place] mg 00 on [facility] 06/01/20 at Branch 1415, Until Discontinu ed, Routine HYDROcodone 0 Yes 1{tbl} 1 tablet, Univers -acetaminop 4-20 Oral, ity of hen (NORCO) 19:00: Q6HPRN, [place] 10-325 mg 48 Starting Medica l tablet 1 [facility] tablet 06/01/20 at 1400, Until Discontinu ed, Routine, Pain (scale 4-6) cefpodoxime 0 2020- No Take by U nivers proxetil 4-20 04-20 mouth. ity of (VANTIN 18:00: 00:00 [place] ORAL) 17 :00 [facility] Branch proMETHazin 0 Yes 25mg 25 mg, Univ ers e 4-20 Oral, ity of (PHENERGAN) 15:20: Q4HPRN, [place] tablet 25 12 Starting Medica l mg [facility] 06/01/20 at 1020, Until Discontinu ed, Routine, Nausea and Vomiting (N/V) acetaminoph 2020- No 1{tbl} 1 tablet, Univers en-codeine -20 04-20 Oral, ity of (TYLENOL 15:18: 19:01 Q4HPRN, [place] #3) 300-30 42 :49 Starting Medic al mg tablet 1 [facility] tablet 06/01/20 at 1018, Until [facility] 06/01/20 at 1401, Routine, Pain (scale 4-6) pantoprazol 0 Yes 40mg 40 mg, Univ ers e 4-20 Oral, ity of (PROTONIX) 14:30: DAILY, [place] EC tablet 00 First dose Medi bernadine 40 mg on [facility] 06/01/20 at 0930, Until Discontinu ed, Routine azaTHIOprin 0 Yes 150mg 150 mg, Un matt e (IMURAN) 4-20 Oral, ity of tablet 150 14:30: DAILY, [place] mg 00 First dose Medical (after Branch last modificati on) on [facility] 06/01/20 at 0930, Until Discontinu ed, Routine morpHINE 0 Yes 2mg 2 mg, Slow Uni vers injection 2 4-20 IV Push, ity of mg 08:26: Q4HPRN, [place] 30 Starting Medical [facility] 06/01/20 at 0326, Until Discontinu ed, Routine, Pain (scale 7-10) morpHINE No 2mg 2 mg, Slow Un matt injection 2 06-01 IV Push, ity of mg 06:00: 05:01 ONCE, 1 [place] 00 :00 dose, [facility] Medical 06/01/20 at Branch 0100, Routine amoxicillin 2020- No [id number] 1{tbl} Take 1 Univers -clavulanat 06-01 tablet by it y of e 00:00: 04:59 mouth 2 [place] (AUGMENTIN) 00 :00 (two) Medical 875-125 mg times Branch per tablet daily for 7 days. proMETHazin 2020- No 25mg 25 mg, IV Univers e 05-31 Piggyback, ity of (PHENERGAN) 22:18: 15:20 Q6HPRN, [place] 25 mg in 42 :48 Starting Medical NaCl 0.9% [facility] (NS) 50 mL 05/31/20 at IV 1718, piggyback Until [facility] 06/01/20 at 1020, Routine, Nausea and Vomiting (N/V) acetaminoph Yes 650mg 650 mg, Un matt en 05-31 Oral, ity of (TYLENOL) 15:33: Q6HPRN, [place] tablet 650 00 Starting Medic al mg [facility] 05/31/20 at 1033, Until Discontinu ed, Routine, Temp > 38.5 C butalbital- Yes 1{tbl} 1 tablet, Univers acetaminoph 05-31 Oral, ity of en-caff 15:27: Q6HPRN, [place] (ESGIC) 07 Starting Medical 50-325-40 Mon Branch mg tablet 1 05/31/20 at tablet 1027, Until Discontinu ed, Routine, Pain (scale 1-3) losartan Yes 50mg 50 mg, Univers (COZAAR) 05-31 Oral, ity of tablet 50 14:00: DAILY, [place] mg 00 First dose Medical (after Branch last modificati on) on [facility] 05/31/20 at 0900, Until Discontinu ed, Routine metoprolol 2021-0 Yes 25mg 25 mg, Unive rs succinate 05-31 Oral, ity of XL (TOPROL 14:00: DAILY, [place] XL) tablet 00 First dose Med ical 25 mg (after Branch last modificati on) on [facility] 05/31/20 at 0900, Until Discontinu ed enoxaparin 2020-0 Yes 40mg 40 mg, Unive rs (LOVENOX) 05-31 Subcutaneo ity of injection 14:00: us, DAILY, [place] 40 mg 00 First dose Medical on [facility] 05/31/20 at 0900, Until Discontinu ed, Routine azaTHIOprin 2020-2020- No 50mg 50 mg, Uni vers e (IMURAN) 05-31-20 Oral, ity of tablet 50 14:00: 14:19 DAILY, [place] mg 00 :13 First dose Medical on [facility] 05/31/20 at 0900, Until Discontinu ed, Routine gabapentin 0 Yes 400mg 400 mg, Uni vers (NEURONTIN) 05-31 Oral, TID, it y of 400 mg 13:00: First dose [place] 00 on [facility] 05/31/20 at Branch 0800, Until Discontinu ed, Routine dicyclomine 0 Yes 20mg 20 mg, Univ ers (BENTYL) 05-31 Oral, TID, ity o f tablet 20 13:00: First dose [place] mg 00 on [facility] 05/31/20 at Branch 0800, Until Discontinu ed, Routine busPIRone 0 Yes 15mg 15 mg, Univer s (BUSPAR) 05-31 Oral, TID, ity o f tablet 15 13:00: First dose [place] mg 00 on [facility] 05/31/20 at Branch 0800, Until Discontinu ed, Routine temazepam 2020-0 2020- No 15mg 15 mg, Unive rs (RESTORIL) 05-31 Oral, ity of capsule 15 06:30: 05:28 ONCE, 1 [place] mg 00 :00 dose, [facility] 05/31/20 at Branch 0130, Routine proMETHazin 2020-0 202- No 25mg 25 mg, Uni vers e 05-31- Oral, ity of (PHENERGAN) 05:29: 22:06 Q6HPRN, [place] tablet 25 16 :24 Starting Medica l mg [facility] 05/31/20 at 0029, Until 05/31/20 at 1706, Routine, Nausea and Vomiting (N/V) ampicillin Yes 2g 2,000 mg Uni vers (POLYCILLIN 05-31 (2 g), IV ity of -N) 2,000 03:00: Piggyback, [place] mg in NaCl 00 Q6H ABX, Medic al 0.9% (NS) First dose Bran ch 100 mL on [place] MINI-BAG 05/30/20 at 2200, Until Discontinu ed, 100 mL
R aurelio for Anti-Infec tive: Documented Infection< br>Documen karly Infection Site: Urine<b r>Duration of Therapy: 10 days gabapentin 2020- No 400mg 400 mg, Un matt (NEURONTIN) 05-31 Oral, TID, i ty of tablet 400 01:00: 13:39 First dose [place] mg 00 :25 on [facility] 05/30/20 at Branch 2000, Until Discontinu ed, Routine piperacilli 2020- No 3.375g 3.375 g, Univers n-tazobacta 05-30 IV ity of m (ZOSYN) 22:45: 22:40 Piggyback, [place] 3.375 g in 00 :00 ONCE, 1 Medica l NaCl 0.9% dose, [place] Branc h (NS) 100 mL 05/30/20 at MINI-BAG 1745, 100 mL
Reas on for Anti-Infec tive: Documented Infection< br>Documen karly Infection Site: Urine
D uration of Therapy: Other (see Comments) FENTanyl PF 2020- No 75ug 75 mcg, Un matt (SUBLIMAZE 05-30 Slow IV ity o f (PF)) 22:45: 21:55 Push, [place] injection 00 :00 ONCE, 1 Medical 75 mcg dose, [facility] 05/30/20 at 1745, STAT proMETHazin 2020- No 25mg 25 mg, IV Univers e 05-30 Piggyback, ity of (PHENERGAN) 22:45: 22:45 ONCE, 1 [place] 25 mg in 00 :00 dose, [facility] l NaCl 0.9% 05/30/20 at Bran ch (NS) 50 mL 1745, 50 piggyback mL NaCl 0.9% 2020- No 1000mL at 100 Uni vers (NS) IV 05-30 04-20 mL/hr, IV ity of infusion 22:30: 19:01 Infusion, [place] 1,000 mL 00 :49 CONTINUOUS Medic al , Starting [facility] 05/30/20 at 1730, Until Sun06/01/20 at 1401, Routine ondansetron Yes 4mg 4 mg, Slow Univers (ZOFRAN 18 IV Push, ity of (PF)) 22:23: Q6HPRN, [place] injection 4 13 Starting Medi bernadine mg [facility] 05/30/20 at 1723, Until Discontinu ed, Routine, Nausea and Vomiting (N/V) morpHINE 2020- No 4mg 4 mg, Slow Un matt injection 4 05-3019 IV Push, ity of mg 22:23: 22:22 Q4HPRN, [place] 07 :07 Starting Medical [facility] 05/30/20 at 1723, Until 05/31/20 at 1722, Routine, Pain (scale 7-10) HYDROcodone 2020- No 1{tbl} 1 tablet, Univers -acetaminop 05-30 Oral, ity of hen (NORCO 22:23: 15:19 Q6HPRN, [place] 5) 5-325 mg 02 :39 Starting Medi bernadine tablet 1 [facility] tablet 05/30/20 at 1723, Until Sun06/01/20 at 1019, Routine, Pain (scale 4-6) acetaminoph 2020- No 650mg 650 mg, U nivers en 05-30 Oral, ity of (TYLENOL) 22:22: 15:33 Q6HPRN, [place] tablet 650 55 :25 Starting Medic al mg [facility] 05/30/20 at 1722, Until 05/31/20 at 1033, Routine, Pain (scale 1-3), Temp > 38.5 C oxybutynin 2021-0 Yes 5mg 5 mg, Univer s chloride 05-30 Oral, ity of (DITROPAN) 22:21: TIDPRN, [place] tablet 5 mg 36 Starting Medi bernadine [facility] 05/30/20 at 1721, Until Discontinu ed, Routine, Bladder spasms iohexol 2020- No [id number] 100mL 100 mL, Univers (OMNIPAQUE 05-30 Intravenou it y of 350 21:00: 20:40 s, ONCE, 1 [place] BULK-100 00 :00 dose, [place] Medica l mL) 05/30/20 at [place] injection 1600, 100 mL Routine FENTanyl PF 2020- No 50ug 50 mcg, Un matt (SUBLIMAZE 05-30 Slow IV ity o f (PF)) 21:00: 20:35 Push, [place] injection 00 :00 ONCE, 1 Medical 50 mcg dose, [facility] 05/30/20 at 1600, Routine ondansetron 2020- No 4mg 4 mg, Slow Univers (ZOFRAN 05-30 IV Push, ity of (PF)) 21:00: 20:22 ONCE, 1 [place] injection 4 00 :00 dose, [place] Med ical mg 05/30/20 at Branch 1600, GIGI proMETHazin 2020- No 25mg 25 mg, IV Univers e 05-27 Piggyback, ity of (PHENERGAN) 02:45: 01:47 ONCE, 1 [place] 25 mg in 00 :00 dose, [facility] Medica l NaCl 0.9% 05/26/20 at [facility] ch (NS) 50 mL 2144, 50 piggyback mL butorphanol 2020- No 2mg 2 mg, IV U nivers (STADOL) 05-27 Push, ity of injection 2 02:45: 01:33 ONCE, 1 [place] mg 00 :00 dose, [facility] Medical 05/26/20 at Branch 2145, Routine ONDANSETRON 2020- No Take by U nivers HCL (ZOFRAN 05-27 mouth. ity o f ORAL) 01:43: 00:00 [place] 58 :00 [facility] dicycl[facility]ine 2020- No 10mg Take 10 mg Univers 10 mg 05-27-14 by mouth. ity of capsule 01:43: 00:00 [place] 58 :00 [facility] Branch butorphanol 2020- No 1mg 1 mg, IV U nivers (STADOL) 05-27-15 Push, ity of injection 1 01:30: 00:38 ONCE, 1 [place] mg 00 :00 dose, [facility] Medical 05/26/20 at Branch 2030, Routine NaCl 0.9% 2020- No 1000mL at 999 Uni vers (NS) bolus 05-26-15 mL/hr, ity of infusion 23:30: 01:49 1,000 mL, [place] 1,000 mL 00 :00 IV Medical Infusion, [place] ONCE, 1 dose, [facility] 05/26/20 at 1830, GIGI oxybutynin 2020-0 Yes [id number] 5mg Take 1 U nivers chloride 5 4-14 tablet by ity of mg tablet 00:00: mouth 3 [place] [address] (three) Medical times Branch daily as needed for Bladder spasms. oxybutynin 2020-0 Yes [id number] 5mg Take 1 U nivers chloride 5 4-14 tablet by ity of mg tablet 00:00: mouth 3 [place] (three) Medical times Branch daily as needed for Bladder spasms. oxybutynin 2020-0 Yes [id number] 5mg Take 1 U nivers chloride 5 4-14 tablet by ity of mg tablet 00:00: mouth 3 [place] (three) Medical times Branch daily as needed for Bladder spasms. oxybutynin 2020-0 Yes [id number] 5mg Take 1 U nivers chloride 5 4-14 tablet by ity of mg tablet 00:00: mouth 3 [place] (three) Medical times Branch daily as needed for Bladder spasms. oxybutynin 2020-0 Yes [id number] 5mg Take 1 U nivers chloride 5 4-14 tablet by ity of mg tablet 00:00: mouth 3 [place] (three) Medical times Branch daily as needed for Bladder spasms. oxybutynin 2020-0 Yes [id number] 5mg Take 1 U nivers chloride 5 4-14 tablet by ity of mg tablet 00:00: mouth 3 [place] (three) Medical times Branch daily as needed for Bladder spasms. oxybutynin 1-0 Yes [id number] 5mg Take 1 U nivers chloride 5 4-14 tablet by ity of mg tablet 00:00: mouth (three) Medical times Branch daily as needed for Bladder spasms. oxybutynin 1-0 Yes [id number] 5mg Take 1 U nivers chloride 5 4-14 tablet by ity of mg tablet 00:00: mouth (three) Medical times Branch daily as needed for Bladder spasms. oxybutynin 1-0 Yes [id number] 5mg Take 1 U nivers chloride 5 4-14 tablet by ity of mg tablet 00:00: mouth (three) Medical times Branch daily as needed for Bladder spasms. oxybutynin 1-0 Yes [id number] 5mg Take 1 U nivers chloride 5 4-14 tablet by ity of mg tablet 00:00: mouth (three) Medical times Branch daily as needed for Bladder spasms. oxybutynin 2020-0 Yes [id number] 5mg Take 1 U nivers chloride 5 4-14 tablet by ity of mg tablet 00:00: mouth (three) Medical times Branch daily as needed for Bladder spasms. oxybutynin 2020-0 Yes [id number] 5mg Take 1 U nivers chloride 5 4-14 tablet by ity of mg tablet 00:00: mouth (three) Medical times Branch daily as needed for Bladder spasms. oxybutynin 1-0 Yes [id number] 5mg Take 1 [facility] chloride 5 4-14 tablet by ity of mg tablet 00:00: mouth (three) Medical times Branch daily as needed for Bladder spasms. oxybutynin 1-0 Yes [id number] 5mg Take 1 U nivers chloride 5 4-14 tablet by ity of mg tablet 00:00: mouth (three) Medical times Branch daily as needed for Bladder spasms. oxybutynin 1-0 Yes [id number] 5mg Take 1 U nivers chloride 5 4-14 tablet by ity of mg tablet 00:00: mouth (three) Medical times Branch daily as needed for Bladder spasms. oxybutynin 1-0 Yes [id number] 5mg Take 1 U nivers chloride 5 4-14 tablet by ity of mg tablet 00:00: mouth (three) Medical times Branch daily as needed for Bladder spasms. oxybutynin 1-0 Yes [id number] 5mg Take 1 U nivers chloride 5 4-14 tablet by ity of mg tablet 00:00: mouth (three) Medical times Branch daily as needed for Bladder spasms. oxybutynin 1-0 Yes [id number] 5mg Take 1 U nivers chloride 5 4-14 tablet by ity of mg tablet 00:00: mouth (three) Medical times Branch daily as needed for Bladder spasms. oxybutynin 1-0 Yes [id number] 5mg Take 1 U nivers chloride 5 4-14 tablet by ity of mg tablet 00:00: mouth () Medical times Branch daily as needed for Bladder spasms. oxybutynin 1-0 Yes [id number] 5mg Take 1 U nivers chloride 5 4-14 tablet by ity of mg tablet 00:00: mouth (three) Medical times Branch daily as needed for Bladder spasms. oxybutynin 1-0 Yes [id number] 5mg Take 1 U nivers chloride 5 4-14 tablet by ity of mg tablet 00:00: mouth () Medical times Branch daily as needed for Bladder spasms. oxybutynin 1-0 Yes [id number] 5mg Take 1 U nivers chloride 5 4-14 tablet by ity of mg tablet 00:00: mouth (three) Medical times Branch daily as needed for Bladder spasms. oxybutynin 1-0 Yes [id number] 5mg Take 1 U nivers chloride 5 4-14 tablet by ity of mg tablet 00:00: mouth (three) Medical times Branch daily as needed for Bladder spasms. oxybutynin 1-0 Yes [id number] 5mg Take 1 U nivers chloride 5 4-14 tablet by ity of mg tablet 00:00: mouth (three) Medical times Branch daily as needed for Bladder spasms. oxybutynin 2021-0 Yes [id number] 5mg Take 1 U nivers chloride 5 4-14 tablet by ity of mg tablet 00:00: mouth (three) Medical times Branch daily as needed for Bladder spasms. oxybutynin Yes [id number] 5mg Take 1 U nivers chloride 5 4-14 tablet by ity of mg tablet 00:00: mouth 3 [place] 00 (three) Medical times Branch daily as needed for Bladder spasms. phenazopyri Yes [id number] 200mg Take 1 [facility] dine 200 mg 4-14 tablet by ity of tablet 00:00: mouth 3 [place] 00 (three) Medical times Branch daily. proMETHazin 2020- Yes [id number] 25mg Take 1 [facility] e 25 mg 4-14 tablet by ity of tablet 00:00: mouth [place] 00 every 6 Medical (six) Branch hours as needed for Nausea and Vomiting (N/V). oxybutynin 2020- No [id number] 5mg Take 1 [facility] chloride 5 4-14 10-24 tablet by ity of mg tablet 00:00: 00:00 mouth 3 [place] :[place] (three) Medical times Branch daily as needed for Bladder spasms. proMETHazin 2020- No [id number] 25mg Take 1 [facility] e 25 mg 4-14 04-21 tablet by ity of tablet 00:00: 00:00 mouth [place] 00 :00 every 6 Medical (six) Branch hours as needed for Nausea and Vomiting (N/V). phenazopyri 2020- No [id number] 200mg Take 1 [facility] dine 200 mg 4-14 04-20 tablet by it y of tablet 00:00: 00:00 mouth 3 [place] 00 :00 (three) Medical times Branch daily. FENTanyl PF 2020- No 50ug 50 mcg, Un matt (SUBLIMAZE 05-13 Slow IV ity o f (PF)) 21:30: 20:45 Push, [place] injection 00 :00 ONCE, 1 Medical 50 mcg dose, [facility] 05/13/20 at 1630, Routine cefTRIAXone 2020- No 1000mg 1,000 mg, Univers (ROCEPHIN) 05-13 IV ity of 1,000 mg in 21:30: 21:22 Piggyback, [place] NaCl 0.9% 00 :00 ONCE, 1 Medical (NS) 50 mL dose, [facility] Bran ch MINI-BAG 05/13/20 at 1630, 50 [...] IV ity of (REGLAN) 19:15: 19:04 Push, [place] injection 00 :00 ONCE, 1 Medical 10 mg dose, [facility] [facility] 05/13/20 at 1415, GIGI FENTanyl PF [...] at Branch 1245, GIGI iohexol 2020- No [id number] 120mL 120 mL, Univers (OMNIPAQUE 05-13 Intravenou it y of 350 17:30: 17:22 s, ONCE, 1 [place] BULK-150 00 :00 dose, [facility] Medica l mL) 05/13/20 at Branch injection 1230, 120 mL Routine NaCl 0.9% 2020- No 1000mL at 999 Uni vers (NS) bolus 4- 04-01 mL/hr, ity of infusion 16:45: 20:00 1,000 mL, [place] as 1,000 mL 00 :00 IV Medical Infusion, Branch ONCE, 1 dose, [facility] 05/13/20 at 1145, GIGI proMETHazin Yes [id number] 25mg Take 1 [facility] e 25 mg 4- tablet by ity of tablet 00:00: mouth [place] 00 every 6 Medical (six) Branch hours as needed for Nausea and Vomiting (N/V). proMETHazin 2020- Yes [id number] 25mg Take 1 [facility] e 25 mg 4-01 tablet by ity of tablet 00:00: mouth [place] 00 every 6 Medical (six) Branch hours as needed for Nausea and Vomiting (N/V). proMETHazin 2020- No [id number] 25mg Take 1 [facility] e 25 mg 05-13 04-14 tablet by ity of tablet 00:00: 00:00 mouth [place] 00 :00 every 6 Medical (six) Branch hours as needed for Nausea and Vomiting (N/V). cefpodoxime 2020- No [id number] 100mg Take 1 [facility] 100 mg 05-13 04-09 tablet by ity of tablet 00:00: 04:59 mouth 2 [place] 00 :00 (two) Medical times Branch daily for 7 days. erenumab-ao Yes 140mg inject 140 Univers oe (AIMOVIG 3-08 mg under ity of AUTOINJECTO 00:00: the skin [place] R) 140 00 once every Medical mg/mL AtIn month. Branch erenumab-ao 0 Yes 140mg inject 140 Univers oe (AIMOVIG 3-08 mg under ity of AUTOINJECTO 00:00: the skin [place] R) 140 00 once every Medical mg/mL AtIn month. Branch erenumab-ao 0 Yes 140mg inject 140 Univers oe (AIMOVIG 3-08 mg under ity of AUTOINJECTO 00:00: the skin [place] R) 140 00 once every Medical mg/mL AtIn month. Branch erenumab-ao 0 Yes 140mg inject 140 Univers oe (AIMOVIG [...] of (TOPROL XL 15:51: [place] ORAL) 34 [facility] Branch metoprolol Yes Take by Uni vers succinate 2-09 mouth. ity of (TOPROL XL 15:51: [place] ORAL) 34 [facility] Branch metoprolol Yes Take by Uni vers succinate 2-09 mouth. ity of (TOPROL XL 15:51: [place] ORAL) 34 [facility] Branch metoprolol Yes Take by Uni vers succinate 2-09 mouth. ity of (TOPROL XL 15:51: [place] ORAL) Medical Branch metoprolol 2020-0 Yes Take by Uni vers succinate 2-09 mouth. ity of (TOPROL XL 15:51: [place] ORAL) Medical Branch metoprolol 2020-0 Yes Take by Uni vers succinate 2-09 mouth. ity of (TOPROL XL 15:51: [place] ORAL) Medical Branch metoprolol 2020-0 Yes Take by Uni vers succinate 2-09 mouth. ity of (TOPROL XL 15:51: [place] ORAL) Medical Branch metoprolol 2020-0 Yes Take by Uni vers succinate 2-09 mouth. ity of (TOPROL XL 15:51: [place] ORAL) Medical Branch metoprolol 2020-0 Yes Take by Uni vers succinate 2-09 mouth. ity of (TOPROL XL 15:51: [place] ORAL) Medical Branch gabapentin 2020-0 Yes [id number] 400mg Take 1 [facility] 400 mg 2-09 capsule by ity of capsule 00:00: mouth 3 (three) Medical times Branch daily. gabapentin 2020-0 Yes [id number] 400mg Take 1 [facility] 400 mg 2-09 capsule by ity of capsule 00:00: mouth 3 (three) Medical times Branch daily. gabapentin 2020-0 Yes [id number] 400mg Take 1 [facility] 400 mg 2-09 capsule by ity of capsule 00:00: mouth 3 (three) Medical times Branch daily. gabapentin 2020-0 Yes [id number] 400mg Take 1 [facility] 400 mg 2-09 capsule by ity of capsule 00:00: mouth 3 (three) Medical times Branch daily. gabapentin 2020-0 Yes [id number] 400mg Take 1 [facility] 400 mg 2-09 capsule by ity of capsule 00:00: mouth 3 (three) Medical times Branch daily. gabapentin 2021-0 Yes [id number] 400mg Take 1 [facility] 400 mg 2-09 capsule by ity of capsule 00:00: mouth 3 (three) Medical times Branch daily. gabapentin 2021-0 Yes [id number] 400mg Take 1 [facility] 400 mg 2-09 capsule by ity of capsule 00:00: mouth 3 (three) Medical times Branch daily. gabapentin 2021-0 Yes [id number] 400mg Take 1 [facility] 400 mg 2-09 capsule by ity of capsule 00:00: mouth 3 [place] 00 (three) Medical times Branch daily. gabapentin 2020-0 Yes [id number] 400mg Take 1 [facility] 400 mg 2-09 capsule by ity of capsule 00:00: mouth 3 [place] 00 (three) Medical times Branch daily. gabapentin 2020-0 Yes [id number] 400mg Take 1 [facility] 400 mg 2-09 capsule by ity of capsule 00:00: mouth 3 [place] 00 (three) Medical times Branch daily. gabapentin 2020-0 202- No [id number] 400mg Take 1 [facility] 400 mg 2-10 17-17 capsule by ity of capsule 00:00: 00:00 mouth 3 [place] 00 :00 (three) Medical times Branch daily. gabapentin 2020-0 Yes 300mg Take 1 Univ ers 300 mg 2-04 capsule by ity of capsule 00:00: mouth 3 [place] 00 (three) Medical times Branch daily. gabapentin 2020-2020- No 300mg Take 1 Uni vers 300 mg 2-05 14- capsule by ity of capsule 00:00: 00:00 mouth 3 [place] 00 :00 (three) Medical times Branch daily. gabapentin 2020-2020- No 300mg Take 1 Uni vers 300 mg 2-04 -09 capsule by ity of capsule 00:00: 00:00 mouth 3 [place] 00 :00 (three) Medical times Branch daily. FENTanyl PF 2019-02- No 50ug 50 mcg, Un matt (SUBLIMAZE 12-08 Slow IV ity o f (PF)) 20:00: 07:59 Push, [place] injection 00 :00 ONCE, 1 Medical 50 mcg dose, [facility] Branch 12/08/19 at 1500, STAT proMETHazin 2019-02- No 12.5mg 12.5 mg, Univers e 12-07 IV ity of (PHENERGAN) 18:45: 17:52 Piggyback, [place] 12.5 mg in 00 :00 ONCE, 1 Medica l NaCl 0.9% dose, [facility] h (NS) 50 mL 12/08/19 piggyback at 1345, 50 mL metoclopram 2019-02- No 10mg 10 mg, Uni vers marilyn HCl 12-07 Slow IV ity of (REGLAN) 17:45: 17:07 Push, [place] injection 00 :00 ONCE, 1 Medical 10 mg dose, [place] Branch 12/08/19 at 1245, GIGI FENTanyl PF 2020- 2020- No 50ug 50 mcg, Un matt (SUBLIMAZE 0-26 10-26 Slow IV ity o f (PF)) 17:45: 17:07 Push, [place] injection 00 :00 ONCE, 1 Medical 50 mcg dose, Mon Branch 12/08/19 at 1245, STAT GABAPENTIN 2019- Yes TAKE 1 Unive rs 300 mg 0-26 CAPSULE BY ity of capsule 00:00: MOUTH [place] 00 THREE Medical TIMES A Branch DAY GABAPENTIN 2019- Yes TAKE 1 Unive rs 300 mg 0-26 CAPSULE BY ity of capsule 00:00: MOUTH [place] 00 THREE Medical TIMES A Branch DAY proMETHazin 2019-02 Yes [id number] 25mg Take 1 Univers e 25 mg 0-26 tablet by ity of tablet 00:00: mouth [place] 00 every 6 Medical (six) Branch hours as needed for Nausea and Vomiting (N/V). GABAPENTIN 2019-02 Yes TAKE 1 Unive rs 300 mg 0-26 CAPSULE BY ity of capsule 00:00: MOUTH [place] 00 THREE Medical TIMES A Branch DAY proMETHazin 2019-02 Yes [id number] 25mg Take 1 Univers e 25 mg 0-26 tablet by ity of tablet 00:00: mouth [place] 00 every 6 Medical (six) Branch hours as needed for Nausea and Vomiting (N/V). GABAPENTIN 2019-02 Yes TAKE 1 Unive rs 300 mg 0-26 CAPSULE BY ity of capsule 00:00: MOUTH [place] 00 THREE Medical TIMES A Branch DAY proMETHazin 2019- Yes [id number] 25mg Take 1 Univers e 25 mg 0-26 tablet by ity of tablet 00:00: mouth [place] 00 every 6 Medical (six) Branch hours as needed for Nausea and Vomiting (N/V). proMETHazin 2019- Yes [id number] 25mg Take 1 Univers e 25 mg 0-26 tablet by ity of tablet 00:00: mouth [place] 00 every 6 Medical (six) Branch hours as needed for Nausea and Vomiting (N/V). proMETHazin 2019- Yes [id number] 25mg Take 1 Univers e 25 mg 0-26 tablet by ity of tablet 00:00: mouth [place] 00 every 6 Medical (six) Branch hours as needed for Nausea and Vomiting (N/V). proMETHazin 2019-02 Yes [id number] 25mg Take 1 Univers e 25 mg 0-26 tablet by ity of tablet 00:00: mouth [place] 00 every 6 Medical (six) Branch hours as needed for Nausea and Vomiting (N/V). proMETHazin 2019-02 Yes [id number] 25mg Take 1 Univers e 25 mg 0-26 tablet by ity of tablet 00:00: mouth [place] 00 every 6 Medical (six) Branch hours as needed for Nausea and Vomiting (N/V). proMETHazin 2019-02 Yes [id number] 25mg Take 1 Univers e 25 mg 0-26 tablet by ity of tablet 00:00: mouth [place] 00 every 6 Medical (six) Branch hours as needed for Nausea and Vomiting (N/V). proMETHazin 2019-02 Yes [id number] 25mg Take 1 Univers e 25 mg 0-26 tablet by ity of tablet 00:00: mouth [place] 00 every 6 Medical (six) Branch hours as needed for Nausea and Vomiting (N/V). proMETHazin 2019-02 Yes [id number] 25mg Take 1 Univers e 25 mg 0-26 tablet by ity of tablet 00:00: mouth [place] 00 every 6 Medical (six) Branch hours as needed for Nausea and Vomiting (N/V). proMETHazin 2019-02 No [id number] 25mg Take 1 Univers e 25 mg 0-26 04-01 tablet by ity of tablet 00:00: 00:00 mouth [place] 00 :00 every 6 Medical (six) Branch hours as needed for Nausea and Vomiting (N/V). GABAPENTIN 2019-02- No TAKE 1 Univ ers 300 mg 0-26 02-04 CAPSULE BY ity of capsule 00:00: 00:00 MOUTH [place] 00 :00 THREE Medical TIMES A Branch DAY acetaminoph 2019-02- No [id number] 1{tbl} Take 1 U nivers en-codeine 0-26 11-03 tablet by ity of (TYLENOL-CO 00:00: 05:59 mouth [place] DEINE #4) 00 :00 every 4 Medical 300-60 mg (four) Branch tablet hours as needed for Pain for up to 7 days. Indication s: acute pain acetaminoph 2019-02- No [id number] 1{tbl} Take 1 U nivers en-codeine 0-26 11-03 tablet by ity of (TYLENOL-CO 00:00: 05:59 mouth [place] DEINE #4) 00 :00 every 4 Medical 300-60 mg (four) Branch tablet hours as needed for Pain for up to 7 days. Indication s: acute pain acetaminoph 2019-02 2020- No [id number] 1{tbl} Take 1 U nivers en-codeine 0-26 11-03 tablet by ity of (TYLENOL-CO 00:00: 05:59 mouth [place] DEINE #4) 00 :00 every 4 Medical 300-60 mg (four) Branch tablet hours as needed for Pain for up to 7 days. Indication s: acute pain busPIRone 5 2019-02 Yes Univer s mg tablet 0-23 ity of 00:00: [place] [facility] busPIRone 5 2019-02 Yes Univer s mg tablet 0-23 ity of 00:00: [place] [facility] busPIRone 5 2019- Yes Univer s mg tablet 0-23 ity of 00:00: [place] [facility] busPIRone 5 2019- Yes Univer s mg tablet 0-23 ity of 00:00: [place] [facility] busPIRone 5 2019- Yes Univer s mg tablet 0-23 ity of 00:00: [place] [facility] busPIRone 5 2019- Yes Univer s mg tablet 0-23 ity of 00:00: [place] [facility] busPIRone 5 2019- Yes Univer s mg tablet 0-23 ity of 00:00: Medical Branch busPIRone 5 2019- Yes Univer s mg tablet 0-23 ity of 00:00: [place] [facility] busPIRone 5 2019- Yes Univer s mg tablet 0-23 ity of 00:00: Medical Branch busPIRone 5 2019- Yes Univer s mg tablet 0-23 ity of 00:00: Medical Branch busPIRone 5 2019- Yes Univer s mg tablet 0-23 ity of 00:00: Medical Branch busPIRone 5 2019- Yes Univer s mg tablet 0-23 ity of 00:00: [place] [facility] busPIRone 5 2019- Yes Univer s mg tablet 0 ity of 00:00: [place] [facility] busPIRone 5 2019-2020- No Unive rs mg tablet 0-18 ity of 00:00: 00:00 [place] :00 Medical Branch losartan 50 2020-0 Yes 50mg Take 50 mg Univers mg tablet 9-21 by mouth ity of 00:00: daily. [place] [facility] losartan 50 2020-0 Yes 50mg Take 50 mg Univers mg tablet 9-21 by mouth ity of 00:00: daily. [place] [facility] losartan 50 2020-0 Yes 50mg Take 50 mg Univers mg tablet 9-21 by mouth ity of 00:00: daily. [place] [facility] losartan 50 2020-0 Yes 50mg Take 50 mg [facility] mg tablet 9-21 by mouth ity of 00:00: daily. [place] [facility] losartan 50 2020-0 Yes 50mg Take 50 mg [facility] mg tablet 9-21 by mouth ity of 00:00: daily. [place] [facility] losartan 50 2020-0 Yes 50mg Take 50 mg [facility] mg tablet 9-21 by mouth ity of 00:00: daily. [place] [facility] losartan 50 2020-0 Yes 50mg Take 50 mg [facility] mg tablet 9-21 by mouth ity of 00:00: daily. [place] [facility] losartan 50 2020-0 Yes 50mg Take 50 mg [facility] mg tablet 9-21 by mouth ity of 00:00: daily. [place] [facility] losartan 50 2020-0 Yes 50mg Take 50 mg [facility] mg tablet 9-21 by mouth ity of 00:00: daily. [place] [facility] losartan 50 2020-0 Yes 50mg Take 50 mg [facility] mg tablet 9-21 by mouth ity of 00:00: daily. [place] [facility] losartan 50 2020-0 Yes 50mg Take 50 mg Univers mg tablet 9-21 by mouth ity of 00:00: daily. [place] [facility] losartan 50 2020-0 Yes 50mg Take 50 mg [facility] mg tablet 9-21 by mouth ity of 00:00: daily. [place] [facility] losartan 50 2020-0 Yes 50mg Take 50 mg [facility] mg tablet 9-21 by mouth ity of 00:00: daily. [place] [facility] losartan 50 2020-0 Yes 50mg Take 50 mg [facility] mg tablet 9-21 by mouth ity of 00:00: daily. [place] [facility] losartan 50 2020-0 Yes 50mg Take 50 mg [facility] mg tablet 9-21 by mouth ity of 00:00: daily. [place] [facility] losartan 50 2020-0 Yes 50mg Take 50 mg [facility] mg tablet 9-21 by mouth ity of 00:00: daily. [place] [facility] losartan 50 2020-0 Yes 50mg Take 50 mg [facility] mg tablet 9-21 by mouth ity of 00:00: daily. [place] [facility] losartan 50 2020-0 Yes 50mg Take 50 mg [facility] mg tablet 9-21 by mouth ity of 00:00: daily. [place] [facility] losartan 50 2020-0 Yes 50mg Take 50 mg [facility] mg tablet 9-21 by mouth ity of 00:00: daily. [place] [facility] losartan 50 2020-0 Yes 50mg Take 50 mg Univers mg tablet 9-21 by mouth ity of 00:00: daily. [place] [facility] losartan 50 2020-0 Yes 50mg Take 50 mg [facility] mg tablet 9-21 by mouth ity of 00:00: daily. [place] [facility] losartan 50 2020-0 Yes 50mg Take 50 mg [facility] mg tablet 9-21 by mouth ity of 00:00: daily. [place] [facility] losartan 50 2020-0 Yes 50mg Take 50 mg Univers mg tablet 9-21 by mouth ity of 00:00: daily. [place] [facility] losartan 50 2020-0 Yes 50mg Take 50 mg [facility] mg tablet 9-21 by mouth ity of 00:00: daily. [place] [facility] losartan 50 2020-0 Yes 50mg Take 50 mg Univers mg tablet 9-21 by mouth ity of 00:00: daily. [place] [facility] losartan 50 2020-0 Yes 50mg Take 50 mg [facility] mg tablet 9-21 by mouth ity of 00:00: daily. [place] [facility] losartan 50 2020-0 Yes 50mg Take 50 mg Univers mg tablet 9-21 by mouth ity of 00:00: daily. [place] [facility] losartan 50 2020-0 Yes 50mg Take 50 mg Univers mg tablet 9-21 by mouth ity of 00:00: daily. [place] [facility] Branch losartan 50 2020-0 Yes 50mg Take 50 mg Univers mg tablet 9-21 by mouth ity of 00:00: daily. [place] [facility] losartan 50 2020-0 Yes 50mg Take 50 mg Univers mg tablet 9-21 by mouth ity of 00:00: daily. [place] [facility] losartan 50 2020-0 Yes 50mg Take 50 mg [facility] mg tablet 9-21 by mouth ity of 00:00: daily. [place] [facility] losartan 50 2020-0 Yes 50mg Take 50 mg [facility] mg tablet 9-21 by mouth ity of 00:00: daily. [place] [facility] Branch losartan 50 2020-0 Yes 50mg Take 50 mg Univers mg tablet 9-21 by mouth ity of 00:00: daily. [place] [facility] Branch losartan 50 2020-0 Yes 50mg Take 50 mg Univers mg tablet 9-21 by mouth ity of 00:00: daily. [place] [facility] Branch losartan 50 2020-0 Yes 50mg Take 50 mg Univers mg tablet 9-21 by mouth ity of 00:00: daily. [place] [facility] Branch losartan 50 2020-0 Yes 50mg Take 50 mg Univers mg tablet 9-21 by mouth ity of 00:00: daily. [place] [facility] losartan 50 2020-0 Yes 50mg Take 50 mg Univers mg tablet 9-21 by mouth ity of 00:00: daily. [place] [facility] Branch losartan 50 2020-0 Yes 50mg Take 50 mg Univers mg tablet 9-21 by mouth ity of 00:00: daily. [place] [facility] Branch losartan 50 2020-0 2021- No 100mg Take 100 Univers mg tablet 9- 10-31 mg by ity of 00:00: 00:00 mouth [place] 00 :00 daily. Medical Branch AIMOVIG 2020-0 Yes INJECT 140 Univ [...] 00 ONCE EVERY Medical MONTH. Branch AIMOVIG 2019-0 Yes INJECT 140 Univ [...] 00 ONCE EVERY Medical MONTH. Branch AIMOVIG 2019-0 Yes INJECT 140 Univ [...] MOUTH [place] 00 THREE Medical TIMES A DAY GABAPENTIN 2020-0 Yes TAKE 1 Unive rs 300 mg 8-12 CAPSULE BY ity of capsule 00:00: MOUTH [place] 00 THREE Medical TIMES A DAY GABAPENTIN 2020-0 Yes TAKE 1 Unive [...] 300mg Take 1 Univ ers 300 mg 4-09 capsule by ity of capsule 00:00: mouth 3 [place] 00 (three) Medical times Branch daily. gabapentin 2020-0 2020- No 300mg Take 1 Uni vers 300 mg 4-09 06-25 capsule by ity of capsule 00:00: 00:00 mouth 3 [place] 00 :00 (three) Medical times Branch daily. erenumab-ao 2020-0 Yes 140mg inject 140 Univers oe (AIMOVIG 3-13 mg under ity of AUTOINJECTO 00:00: [place] R) 140 00 once every Medical mg/mL AtIn month. Branch gabapentin 2020-0 Yes 300mg Take 1 Univ ers 300 mg 3-13 capsule by ity of capsule 00:00: mouth 3 [place] 00 (three) Medical times Branch daily. erenumab-ao [...] 00 once every Medical mg/mL AtIn month. [place] erenumab-ao 2020-0 2020- No 140mg inject 140 Univers oe (AIMOVIG 3-13 09-09 mg under ity of AUTOINJECTO 00:00: 00:00 the skin [place] R) 140 00 :00 once every Medical mg/mL AtIn month. [place] gabapentin 2020-0 2020- No 300mg Take 1 Uni vers 300 mg 3-13 04-09 capsule by ity of capsule 00:00: 00:00 mouth 3 [place] 00 :00 (three) Medical times Branch daily. divalproex 2020-0 Yes [id number] 250mg Take 1 [facility] 250 mg EC 3-05 tablet by ity o f tablet 00:00: mouth [place] 00 every 12 Medical (twelve) Branch hours. divalproex 2020-0 Yes [id number] 250mg Take 1 [facility] 250 mg EC 3-05 tablet by ity o f tablet 00:00: mouth [place] 00 every 12 Medical (twelve) Branch hours. divalproex 2020-0 Yes [id number] 250mg Take 1 [facility] 250 mg EC 3-05 tablet by ity o f tablet 00:00: mouth [place] 00 every 12 Medical (twelve) Branch hours. divalproex 2020-0 Yes [id number] 250mg Take 1 [facility] 250 mg EC 3-05 tablet by ity o f tablet 00:00: mouth [place] 00 every 12 Medical (twelve) Branch hours. divalproex 2020-0 Yes [id number] 250mg Take 1 [facility] 250 mg EC 3-05 tablet by ity o f tablet 00:00: mouth [place] 00 every 12 Medical (twelve) Branch hours. divalproex 2020-0 Yes [id number] 250mg Take 1 [facility] 250 mg EC 2-28 tablet by ity o f tablet 00:00: mouth [place] 00 every 12 Medical (twelve) Branch hours. divalproex 2020-0 2020- No [id number] 250mg Take 1 [facility] 250 mg EC 2-28 03-05 tablet by ity of tablet 00:00: 00:00 mouth [place] 00 :00 every 12 Medical (twelve) Branch hours. divalproex 2020-0 2020- No [id number] 250mg Take 1 [facility] 250 mg EC 2-28 03-05 tablet by ity of tablet 00:00: 00:00 mouth [place] 00 :00 every 12 Medical (twelve) Branch hours. divalproex 2020-0 2020- No [id number] 250mg Take 1 [facility] 250 mg EC 2-28 03-05 tablet by ity of tablet 00:00: 00:00 mouth [place] 00 :00 every 12 Medical (twelve) Branch hours. divalproex 2020-0 2020- No [id number] 250mg Take 1 [facility] 250 mg EC [...] times Medical daily. Branch divalproex 2020-0 Yes [id number] 125mg Take 1 [facility] 125 mg EC 2-14 tablet by ity o f tablet 00:00: mouth [place] 00 every 12 Medical (twelve) Branch hours. divalproex 2020-0 Yes [id number] 125mg Take 1 [facility] 125 mg EC 2-14 tablet by ity o f tablet 00:00: mouth [place] 00 every 12 Medical (twelve) Branch hours. divalproex 2020-0 Yes [id number] 125mg Take 1 [facility] 125 mg EC 2-14 tablet by ity o f tablet 00:00: mouth [place] 00 every 12 Medical (twelve) Branch hours. divalproex 2020-0 Yes [id number] 125mg Take 1 [facility] 125 mg EC 2-14 tablet by ity o f tablet 00:00: mouth [place] 00 every 12 Medical (twelve) Branch hours. divalproex 2020-0 2020- No [id number] 125mg Take 1 [facility] 125 mg EC 2-14 - tablet by ity of tablet 00:00: 00:00 mouth [place] 00 :00 every 12 Medical (twelve) Branch hours. NaCl 0.9% 2019 Yes Infuse Univer s [...] 39 Medical 100 mg SolR Branch dicyclomine 2018-02 Yes 10mg Take 10 mg Univers 10 mg 2-09 by mouth. ity of capsule 15:24: [address] dicyclomine 2018-02 Yes 10mg Take 10 mg Univers 10 mg 2-09 by mouth. ity of capsule 15:24: [address] dicyclomine 2018-02 Yes 10mg Take 10 mg [facility] 10 mg 2-09 by mouth. ity of capsule 15:24: [address] dicyclomine 2018-02 Yes 10mg Take 10 mg [facility] 10 mg 2-09 by mouth. ity of capsule 15:24: [address] dicyclomine 2018-02 Yes 10mg Take 10 mg [facility] 10 mg 2-09 by mouth. ity of capsule 15:24: [address] dicyclomine 2018-02 Yes 10mg Take 10 mg [facility] 10 mg 2-09 by mouth. ity of capsule 15:24: [address] dicyclomine 2018-02 Yes 10mg Take 10 mg [facility] 10 mg 2-09 by mouth. ity of capsule 15:24: [address] dicyclomine 2018-02 Yes 10mg Take 10 mg [facility] 10 mg 2-09 by mouth. ity of capsule 15:24: [address] dicyclomine 2018-02 Yes 10mg Take 10 mg [facility] 10 mg 2-09 by mouth. ity of capsule 15:24: [address] dicyclomine 2018-02 Yes 10mg Take 10 mg [facility] 10 mg 2-09 by mouth. ity of capsule 15:24: [address] dicyclomine 2018-02 Yes 10mg Take 10 mg [facility] 10 mg 2-09 by mouth. ity of capsule 15:24: [address] dicyclomine 2018-02 Yes 10mg Take 10 mg [facility] 10 mg 2-09 by mouth. ity of capsule 15:24: [address] dicyclomine 2018-02 Yes 10mg Take 10 mg [facility] 10 mg 2-09 by mouth. ity of capsule 15:24: [address] dicyclomine 2018-02 Yes 10mg Take 10 mg [facility] 10 mg 2-09 by mouth. ity of capsule 15:24: [address] dicyclomine 2018-02 Yes 10mg Take 10 mg [facility] 10 mg 2-09 by mouth. ity of capsule 15:24: [address] dicyclomine 2018-02 Yes 10mg Take 10 mg [facility] 10 mg 2-09 by mouth. ity of capsule 15:24: [address] dicyclomine 2018-02 Yes 10mg Take 10 mg [facility] 10 mg 2-09 by mouth. ity of capsule 15:24: [address] dicyclomine 2018-02 Yes 10mg Take 10 mg [facility] 10 mg 2-09 by mouth. ity of capsule 15:24: [address] dicyclomine 2018-02 Yes 10mg Take 10 mg [facility] 10 mg 2-09 by mouth. ity of capsule 15:24: [address] dicyclomine 2018-02 Yes 10mg Take 10 mg [facility] 10 mg 2-09 by mouth. ity of capsule 15:24: [address] dicyclomine 2018-02 Yes 10mg Take 10 mg [facility] 10 mg 2-09 by mouth. ity of capsule 15:24: [address] dicyclomine 2018-02 Yes 10mg Take 10 mg [facility] 10 mg 2-09 by mouth. ity of capsule 15:24: [address] dicyclomine 2018-02 Yes 10mg Take 10 mg [facility] 10 mg 2-09 by mouth. ity of capsule 15:24: [address] dicyclomine 2018-02 Yes 10mg Take 10 mg [facility] 10 mg 2-09 by mouth. ity of capsule 15:24: [address] dicyclomine 2018-02 Yes 10mg Take 10 mg [facility] 10 mg 2-09 by mouth. ity of capsule 15:24: [address] dicyclomine 2018-02 Yes 10mg Take 10 mg [facility] 10 mg 2-09 by mouth. ity of capsule 15:24: [address] dicyclomine 2018-02 Yes 10mg Take 10 mg [facility] 10 mg 2-09 by mouth. ity of capsule 15:24: [address] dicyclomine 2018-02 Yes 10mg Take 10 mg [facility] 10 mg 2-09 by mouth. ity of capsule 15:24: [address] dicyclomine 2018-02 Yes 10mg Take 10 mg [facility] 10 mg 2-09 by mouth. ity of capsule 15:24: [address] dicyclomine 2018-02 Yes 10mg Take 10 mg [facility] 10 mg 2-09 by mouth. ity of capsule 15:24: [address] dicyclomine 2018-02 Yes 10mg Take 10 mg [facility] 10 mg 2-09 by mouth. ity of capsule 15:24: [address] dicyclomine 2018-02 Yes 10mg Take 10 mg [facility] 10 mg 2-09 by mouth. ity of capsule 15:24: [address] ONDANSETRON 2018-02 Yes Take by Un matt HCL (ZOFRAN 2-09 mouth. ity of ORAL) 15:22: [address] ONDANSETRON 2018-02 Yes Take by Un matt HCL (ZOFRAN 2-09 mouth. ity of ORAL) 15:22: [address] ONDANSETRON 2018- Yes Take by Un matt HCL (ZOFRAN 2-09 mouth. ity of ORAL) 15:22: [address] ONDANSETRON 2018- Yes Take by Un matt HCL (ZOFRAN 2-09 mouth. ity of ORAL) 15:22: [address] ONDANSETRON 2018- Yes Take by Un matt HCL (ZOFRAN 2-09 mouth. ity of ORAL) 15:22: [address] ONDANSETRON 2018- Yes Take by Un matt HCL (ZOFRAN 2-09 mouth. ity of ORAL) 15:22: [address] ONDANSETRON 2018- Yes Take by Un matt HCL (ZOFRAN 2-09 mouth. ity of ORAL) 15:22: [place] [facility] ONDANSETRON 2018- Yes Take by Un matt HCL (ZOFRAN 2-09 mouth. ity of ORAL) 15:22: [place] [address] [facility] ONDANSETRON 2018- Yes Take by Un matt HCL (ZOFRAN 2-09 mouth. ity of ORAL) 15:22: [place] [address] [facility] ONDANSETRON 2018- Yes Take by Un matt HCL (ZOFRAN 2-09 mouth. ity of ORAL) 15:22: [place] [address] [facility] Branch ONDANSETRON 2018- Yes Take by Un matt HCL (ZOFRAN 2-09 mouth. ity of ORAL) 15:22: [place] [address] [facility] Branch ONDANSETRON 2018- Yes Take by Un matt HCL (ZOFRAN 2-09 mouth. ity of ORAL) 15:22: [address] Branch ONDANSETRON 2018- Yes Take by Un matt HCL (ZOFRAN 2-09 mouth. ity of ORAL) 15:22: [address] Branch ONDANSETRON 2018- Yes Take by Un matt HCL (ZOFRAN 2-09 mouth. ity of ORAL) 15:22: [address] Branch ONDANSETRON 2018- Yes Take by Un matt HCL (ZOFRAN 2-09 mouth. ity of ORAL) 15:22: [address] Branch ONDANSETRON 2018- Yes Take by Un matt HCL (ZOFRAN 2-09 mouth. ity of ORAL) 15:22: [address] Branch ONDANSETRON 2018- Yes Take by Un matt HCL (ZOFRAN 2-09 mouth. ity of ORAL) 15:22: [address] Branch ONDANSETRON 2018- Yes Take by Un matt HCL (ZOFRAN 2-09 mouth. ity of ORAL) 15:22: [place] [address] Medical Branch ONDANSETRON 2018- Yes Take by Un matt HCL (ZOFRAN 2-09 mouth. ity of ORAL) 15:22: [place] [address] [facility] Branch ONDANSETRON 2018- Yes Take by Un matt HCL (ZOFRAN 2-09 mouth. ity of ORAL) 15:22: [place] [address] [facility] Branch ONDANSETRON 2018- Yes Take by Un matt HCL (ZOFRAN 2-09 mouth. ity of ORAL) 15:22: [address] ONDANSETRON 2018- Yes Take by Un matt HCL (ZOFRAN 2-09 mouth. ity of ORAL) 15:22: [address] ONDANSETRON 2018-02 Yes Take by Un matt HCL (ZOFRAN 2-09 mouth. ity of ORAL) 15:22: [address] ONDANSETRON 2018-02 Yes Take by Un matt HCL (ZOFRAN 2-09 mouth. ity of ORAL) 15:22: [address] ONDANSETRON 2018-02 Yes Take by Un matt HCL (ZOFRAN 2-09 mouth. ity of ORAL) 15:22: [address] ONDANSETRON 2018-02 Yes Take by Un matt HCL (ZOFRAN 2-09 mouth. ity of ORAL) 15:22: [address] ONDANSETRON 2018-02 Yes Take by Un matt HCL (ZOFRAN 2-09 mouth. ity of ORAL) 15:22: [address] ONDANSETRON 2018-02 Yes Take by Un matt HCL (ZOFRAN 2-09 mouth. ity of ORAL) 15:22: [address] ONDANSETRON 2018-02 Yes Take by Un matt HCL (ZOFRAN 2-09 mouth. ity of ORAL) 15:22: [address] ONDANSETRON 2018-02 Yes Take by Un matt HCL (ZOFRAN 2-09 mouth. ity of ORAL) 15:22: [address] ONDANSETRON 2018-02 Yes Take by Un matt HCL (ZOFRAN 2-09 mouth. ity of ORAL) 15:22: [address] ONDANSETRON 2018-02 Yes Take by Un matt HCL (ZOFRAN 2-09 mouth. ity of ORAL) 15:22: [address] azaTHIOprin 2018-02 Yes 150mg Take 150 U nivers e 50 mg 2-02 mg by ity of tablet 00:00: mouth [place] 00 daily. Medical Branch azaTHIOprin 2018-02 Yes 150mg Take 150 U nivers e 50 mg 2-02 mg by ity of tablet 00:00: mouth 00 daily. Medical Branch azaTHIOprin 2018-02 Yes [...] tablet 00:00: [place] 00 [facility] azaTHIOprin 2019- Yes Univer s e 50 mg 2-02 ity of tablet 00:00: [place] 00 [facility] azaTHIOprin 2019- Yes Univer s e 50 mg 2-02 ity of tablet 00:00: [place] 00 [facility] azaTHIOprin 2018- Yes Univer s e 50 mg 2-02 ity of tablet 00:00: [place] 00 [facility] azaTHIOprin 2019- Yes Univer s e 50 mg 2-02 ity of tablet 00:00: [place] 00 [facility] azaTHIOprin 2019- Yes Univer s e 50 mg 2-02 ity of tablet 00:00: [place] 00 [facility] azaTHIOprin 2019- Yes Univer s e 50 mg 2-02 ity of tablet 00:00: [place] 00 [facility] azaTHIOprin 2019- Yes Univer s e 50 mg 2-02 ity of tablet 00:00: [place] [facility] azaTHIOprin 2019-1 Yes Univer s e 50 mg 2-02 ity of tablet 00:00: [place] [facility] azaTHIOprin 2019-1 Yes Univer s e 50 mg 2-02 ity of tablet 00:00: [place] [address] [facility] azaTHIOprin 2019-1 Yes Univer s e 50 mg 2-02 ity of tablet 00:00: [place] [facility] azaTHIOprin 2019-1 Yes Univer s e 50 mg 2-02 ity of tablet 00:00: [place] [address] [facility] azaTHIOprin 2019-1 Yes Univer s e 50 mg 2-02 ity of tablet 00:00: [place] [address] [facility] azaTHIOprin 2019-1 Yes Univer s e 50 mg 2-02 ity of tablet 00:00: [place] [address] [facility] azaTHIOprin 2019-1 Yes Univer s e 50 mg 2-02 ity of tablet 00:00: [place] [address] [facility] azaTHIOprin 2019-1 Yes Univer s e 50 mg 2-02 ity of tablet 00:00: [place] [address] [facility] azaTHIOprin 2019-1 Yes Univer s e 50 mg 2-02 ity of tablet 00:00: [place] [address] [facility] azaTHIOprin 2019-1 Yes Univer s e 50 mg 2-02 ity of tablet 00:00: [place] [address] [facility] azaTHIOprin 2019-1 Yes Univer s e 50 mg 2-02 ity of tablet 00:00: [place] [address] [facility] azaTHIOprin 2019-1 Yes Univer s e 50 mg 2-02 ity of tablet 00:00: [place] [address] [facility] azaTHIOprin 2019-1 Yes Univer s e 50 mg 2-02 ity of tablet 00:00: [place] [address] [facility] azaTHIOprin 2019-1 Yes Univer s e 50 mg 2-02 ity of tablet 00:00: [place] [address] [facility] azaTHIOprin 2019-1 Yes Univer s e 50 mg 2-02 ity of tablet 00:00: [place] [address] [facility] azaTHIOprin 2019-1 Yes Univer s e 50 mg 2-02 ity of tablet 00:00: [place] [address] [facility] azaTHIOprin 2019-1 Yes Univer s e 50 mg 2-02 ity of tablet 00:00: [place] [address] [facility] azaTHIOprin 2019-1 Yes Univer s e 50 mg 2-02 ity of tablet 00:00: [place] [address] [facility] Branch azaTHIOprin 2018-02 Yes Univer s [...] 50 mg 2-02 ity of tablet 00:00: [place] 00 [facility] azaTHIOprin 2018-02 Yes Univer s e 50 mg 2-02 ity of tablet 00:00: [place] 00 [facility] azaTHIOprin 2018-02 Yes Univer s e 50 mg 2-02 ity of tablet 00:00: [place] [facility] azaTHIOprin 2018-02 Yes Univer s e 50 mg 2-02 ity of tablet 00:00: [place] 00 [facility] azaTHIOprin 2018-1- No 150mg Take 150 [facility] e 50 mg 2-02 10-24 mg by ity of tablet 00:00: 00:00 mouth [place] 00 :00 daily. Medical Branch ibuprofen 2018-02 Yes [id number] 600mg Take 1 [facility] 600 mg 1-13 tablet by ity of tablet 00:00: mouth [place] 00 every 6 Medical (six) Branch hours as needed for Pain (scale 4-6). ibuprofen 2018-02 Yes [id number] 600mg Take 1 [facility] 600 mg 1-13 tablet by ity of tablet 00:00: mouth [place] 00 every 6 Medical (six) Branch hours as needed for Pain (scale 4-6). ibuprofen 2018-02 Yes [id number] 600mg Take 1 [facility] 600 mg 1-13 tablet by ity of tablet 00:00: mouth [place] 00 every 6 Medical (six) Branch hours as needed for Pain (scale 4-6). ibuprofen 2018-02 Yes [id number] 600mg Take 1 [facility] 600 mg 1-13 tablet by ity of tablet 00:00: mouth [place] 00 every 6 Medical (six) Branch hours as needed for Pain (scale 4-6). ibuprofen 2018-02 Yes [id number] 600mg Take 1 [facility] 600 mg 1-13 tablet by ity of tablet 00:00: mouth [place] 00 every 6 Medical (six) Branch hours as needed for Pain (scale 4-6). ibuprofen 2018-02 Yes [id number] 600mg Take 1 [facility] 600 mg 1-13 tablet by ity of tablet 00:00: mouth [place] 00 every 6 Medical (six) Branch hours as needed for Pain (scale 4-6). ibuprofen 2018- Yes [id number] 600mg Take 1 [facility] 600 mg 1-13 tablet by ity of tablet 00:00: mouth [place] 00 every 6 Medical (six) Branch hours as needed for Pain (scale 4-6). ibuprofen 2018-02 Yes [id number] 600mg Take 1 [facility] 600 mg 1-13 tablet by ity of tablet 00:00: mouth [place] 00 every 6 Medical (six) Branch hours as needed for Pain (scale 4-6). ibuprofen 2018-02 Yes [id number] 600mg Take 1 [facility] 600 mg 1-13 tablet by ity of tablet 00:00: mouth [place] 00 every 6 Medical (six) Branch hours as needed for Pain (scale 4-6). ibuprofen 2018-02 Yes [id number] 600mg Take 1 [facility] 600 mg 1-13 tablet by ity of tablet 00:00: mouth [place] 00 every 6 Medical (six) Branch hours as needed for Pain (scale 4-6). ibuprofen 2018-02 Yes [id number] 600mg Take 1 [facility] 600 mg 1-13 tablet by ity of tablet 00:00: mouth [place] 00 every 6 Medical (six) Branch hours as needed for Pain (scale 4-6). ibuprofen 2018-02 Yes [id number] 600mg Take 1 [facility] 600 mg 1-13 tablet by ity of tablet 00:00: mouth [place] 00 every 6 Medical (six) Branch hours as needed for Pain (scale 4-6). ibuprofen 2018-02 Yes [id number] 600mg Take 1 [facility] 600 mg 1-13 tablet by ity of tablet 00:00: mouth [place] 00 every 6 Medical (six) Branch hours as needed for Pain (scale 4-6). ibuprofen 2019- Yes [id number] 600mg Take 1 [facility] 600 mg 1-13 tablet by ity of tablet 00:00: mouth [place] 00 every 6 Medical (six) Branch hours as needed for Pain (scale 4-6). ibuprofen 2018- Yes [id number] 600mg Take 1 [facility] 600 mg 1-13 tablet by ity of tablet 00:00: mouth [place] 00 every 6 Medical (six) Branch hours as needed for Pain (scale 4-6). ibuprofen 2018-02 Yes [id number] 600mg Take 1 [facility] 600 mg 1-13 tablet by ity of tablet 00:00: mouth [place] 00 every 6 Medical (six) Branch hours as needed for Pain (scale 4-6). ibuprofen 2018-02 Yes [id number] 600mg Take 1 [facility] 600 mg 1-13 tablet by ity of tablet 00:00: mouth [place] 00 every 6 Medical (six) Branch hours as needed for Pain (scale 4-6). ibuprofen 2018-02 Yes [id number] 600mg Take 1 [facility] 600 mg 1-13 tablet by ity of tablet 00:00: mouth [place] 00 every 6 Medical (six) Branch hours as needed for Pain (scale 4-6). ibuprofen 2018-02 Yes [id number] 600mg Take 1 [facility] 600 mg 1-13 tablet by ity of tablet 00:00: mouth [place] 00 every 6 Medical (six) Branch hours as needed for Pain (scale 4-6). ibuprofen 2018-02 Yes [id number] 600mg Take 1 [facility] 600 mg 1-13 tablet by ity of tablet 00:00: mouth [place] 00 every 6 Medical (six) Branch hours as needed for Pain (scale 4-6). ibuprofen 2018-02 Yes [id number] 600mg Take 1 [facility] 600 mg 1-13 tablet by ity of tablet 00:00: mouth [place] 00 every 6 Medical (six) Branch hours as needed for Pain (scale 4-6). ibuprofen 2018-02 Yes [id number] 600mg Take 1 [facility] 600 mg 1-13 tablet by ity of tablet 00:00: mouth [place] 00 every 6 Medical (six) Branch hours as needed for Pain (scale 4-6). ibuprofen 2018-02 Yes [id number] 600mg Take 1 [facility] 600 mg 1-13 tablet by ity of tablet 00:00: mouth [place] 00 every 6 Medical (six) Branch hours as needed for Pain (scale 4-6). ibuprofen 2018- Yes [id number] 600mg Take 1 [facility] 600 mg 1-13 tablet by ity of tablet 00:00: mouth [place] 00 every 6 Medical (six) Branch hours as needed for Pain (scale 4-6). ibuprofen 2018-02 Yes [id number] 600mg Take 1 [facility] 600 mg 1-13 tablet by ity of tablet 00:00: mouth [place] 00 every 6 Medical (six) Branch hours as needed for Pain (scale 4-6). ibuprofen 2018-02 Yes [id number] 600mg Take 1 [facility] 600 mg 1-13 tablet by ity of tablet 00:00: mouth [place] 00 every 6 Medical (six) Branch hours as needed for Pain (scale 4-6). ibuprofen 2018-02 Yes [id number] 600mg Take 1 [facility] 600 mg 1-13 tablet by ity of tablet 00:00: mouth [place] 00 every 6 Medical (six) Branch hours as needed for Pain (scale 4-6). ibuprofen 2018-02 Yes [id number] 600mg Take 1 [facility] 600 mg 1-13 tablet by ity of tablet 00:00: mouth [place] 00 every 6 Medical (six) Branch hours as needed for Pain (scale 4-6). ibuprofen 2018-02 Yes [id number] 600mg Take 1 [facility] 600 mg 1-13 tablet by ity of tablet 00:00: mouth [place] 00 every 6 Medical (six) Branch hours as needed for Pain (scale 4-6). ibuprofen 2018-02 Yes [id number] 600mg Take 1 [facility] 600 mg 1-13 tablet by ity of tablet 00:00: mouth [place] 00 every 6 Medical (six) Branch hours as needed for Pain (scale 4-6). ibuprofen 2018-02 Yes [id number] 600mg Take 1 [facility] 600 mg 1-13 tablet by ity of tablet 00:00: mouth [place] 00 every 6 Medical (six) Branch hours as needed for Pain (scale 4-6). ibuprofen 2018-02 Yes [id number] 600mg Take 1 [facility] 600 mg 1-13 tablet by ity of tablet 00:00: mouth [place] 00 every 6 Medical (six) Branch hours as needed for Pain (scale 4-6). ibuprofen 2018-02 Yes [id number] 600mg Take 1 [facility] 600 mg 1-13 tablet by ity of tablet 00:00: mouth [place] 00 every 6 Medical (six) Branch hours as needed for Pain (scale 4-6). ibuprofen 2018- Yes [id number] 600mg Take 1 [facility] 600 mg 1-13 tablet by ity of tablet 00:00: mouth [place] 00 every 6 Medical (six) Branch hours as needed for Pain (scale 4-6). ibuprofen 2018- Yes [id number] 600mg Take 1 [facility] 600 mg 1-13 tablet by ity of tablet 00:00: mouth [place] 00 every 6 Medical (six) Branch hours as needed for Pain (scale 4-6). ibuprofen 2018-02 Yes [id number] 600mg Take 1 [facility] 600 mg 1-13 tablet by ity of tablet 00:00: mouth [place] 00 every 6 Medical (six) Branch hours as needed for Pain (scale 4-6). ibuprofen 2018-02 Yes [id number] 600mg Take 1 [facility] 600 mg 1-13 tablet by ity of tablet 00:00: mouth [place] 00 every 6 Medical (six) Branch hours as needed for Pain (scale 4-6). ibuprofen 2018-02 Yes [id number] 600mg Take 1 [facility] 600 mg 1-13 tablet by ity of tablet 00:00: mouth [place] 00 every 6 Medical (six) Branch hours as needed for Pain (scale 4-6). ibuprofen 2018-02 Yes [id number] 600mg Take 1 [facility] 600 mg 1-13 tablet by ity of tablet 00:00: mouth [place] 00 every 6 Medical (six) Branch hours as needed for Pain (scale 4-6). ibuprofen 2018-02 Yes [id number] 600mg Take 1 [facility] 600 mg 1-13 tablet by ity of tablet 00:00: mouth [place] 00 every 6 Medical (six) Branch hours as needed for Pain (scale 4-6). ibuprofen 2018-02 Yes [id number] 600mg Take 1 [facility] 600 mg 1-13 tablet by ity of tablet 00:00: mouth [place] 00 every 6 Medical (six) Branch hours as needed for Pain (scale 4-6). ibuprofen 2018-02 Yes [id number] 600mg Take 1 [facility] 600 mg 1-13 tablet by ity of tablet 00:00: mouth [place] 00 every 6 Medical (six) Branch hours as needed for Pain (scale 4-6). ibuprofen 2018- Yes [id number] 600mg Take 1 [facility] 600 mg 1-13 tablet by ity of tablet 00:00: mouth [place] 00 every 6 Medical (six) Branch hours as needed for Pain (scale 4-6). ibuprofen 2018- Yes [id number] 600mg Take 1 [facility] 600 mg 1-13 tablet by ity of tablet 00:00: mouth [place] 00 every 6 Medical (six) Branch hours as needed for Pain (scale 4-6). ibuprofen 2018- Yes [id number] 600mg Take 1 [facility] 600 mg 1-13 tablet by ity of tablet 00:00: mouth [place] 00 every 6 Medical (six) Branch hours as needed for Pain (scale 4-6). ibuprofen 2018-02 Yes [id number] 600mg Take 1 [facility] 600 mg 1-13 tablet by ity of tablet 00:00: mouth [place] 00 every 6 Medical (six) Branch hours as needed for Pain (scale 4-6). ibuprofen 2018-02 Yes [id number] 600mg Take 1 [facility] 600 mg 1-13 tablet by ity of tablet 00:00: mouth [place] 00 every 6 Medical (six) Branch hours as needed for Pain (scale 4-6). ibuprofen 2018-02 Yes [id number] 600mg Take 1 [facility] 600 mg 1-13 tablet by ity of tablet 00:00: mouth [place] 00 every 6 Medical (six) Branch hours as needed for Pain (scale 4-6). ibuprofen 2018-02 Yes [id number] 600mg Take 1 [facility] 600 mg 1-13 tablet by ity of tablet 00:00: mouth [place] 00 every 6 Medical (six) Branch hours as needed for Pain (scale 4-6). ibuprofen 2018-02 Yes [id number] 600mg Take 1 [facility] 600 mg 1-13 tablet by ity of tablet 00:00: mouth [place] 00 every 6 Medical (six) Branch hours as needed for Pain (scale 4-6). ibuprofen 2018-02 Yes [id number] 600mg Take 1 [facility] 600 mg 1-13 tablet by ity of tablet 00:00: mouth [place] 00 every 6 Medical (six) Branch hours as needed for Pain (scale 4-6). ibuprofen 2018-02 Yes [id number] 600mg Take 1 [facility] 600 mg 1-13 tablet by ity of tablet 00:00: mouth [place] 00 every 6 Medical (six) Branch hours as needed for Pain (scale 4-6). ibuprofen 2018- Yes [id number] 600mg Take 1 [facility] 600 mg 1-13 tablet by ity of tablet 00:00: mouth [place] 00 every 6 Medical (six) Branch hours as needed for Pain (scale 4-6). ibuprofen 2018- Yes [id number] 600mg Take 1 [facility] 600 mg 1-13 tablet by ity of tablet 00:00: mouth [place] 00 every 6 Medical (six) Branch hours as needed for Pain (scale 4-6). ibuprofen 2018-02 Yes [id number] 600mg Take 1 [facility] 600 mg 1-13 tablet by ity of tablet 00:00: mouth [place] 00 every 6 Medical (six) Branch hours as needed for Pain (scale 4-6). ibuprofen 2018-02 Yes [id number] 600mg Take 1 [facility] 600 mg 1-13 tablet by ity of tablet 00:00: mouth [place] 00 every 6 Medical (six) Branch hours as needed for Pain (scale 4-6). ibuprofen 2018-02 Yes [id number] 600mg Take 1 [facility] 600 mg 1-13 tablet by ity of tablet 00:00: mouth [place] 00 every 6 Medical (six) Branch hours as needed for Pain (scale 4-6). ibuprofen 2018-02 Yes [id number] 600mg Take 1 [facility] 600 mg 1-13 tablet by ity of tablet 00:00: mouth [place] 00 every 6 Medical (six) Branch hours as needed for Pain (scale 4-6). ibuprofen 2018-02 No [id number] 600mg Take 1 [facility] 600 mg 1-13 10-24 tablet by ity of tablet 00:00: 00:00 mouth [place] 00 :00 every 6 Medical (six) Branch hours as needed for Pain (scale 4-6). cyclobenzap 2018-02- No [id number] 10mg Take 1 [facility] rine 10 mg -27 03-14 tablet by ity of tablet 00:00: 00:00 mouth 3 [place] 00 :00 (three) Medical times Branch daily. cyclobenzap 2018-02- No [id number] 10mg Take 1 [facility] rine 10 mg -13 -14 tablet by ity of tablet 00:00: 00:00 mouth 3 [place] 00 :00 (three) Medical times Branch daily. Bactrim DS Bactrim DS 2017- No [place] [address] [facility] 08[facility] 00:[facility]: [facility] Pyridium Pyridium 2017- No [place] [address] [facility] [place] hydrOXYzine 2019- No TAKE 1 [facility] vers (ATARAX) 25 09-01-14 TABLET BY it y of mg tablet 00:00: 00:00 MOUTH [place] 00 :00 EVERY 8 Medical HOURS Branch NEEDED FOR ANXIETY hydrOXYzine 2020- No TAKE 1 [facility] vers (ATARAX) 25 7-21 02-14 TABLET BY it y of mg tablet 00:00: 00:00 MOUTH [place] 00 :00 EVERY 8 Medical HOURS Branch NEEDED FOR ANXIETY sodium,pota Yes [id number] Please see [facility] [place] [facility] instructio ity of sulfates 00:00: [facility] (SUPREP 00 provided. Medical BOWEL PREP Branch KIT) 17.5-3.13-1 .6 gram SolR sodium,pota Yes [id number] Please see [facility] [place] [facility] 6-16 instructio ity of sulfates 00:00: [facility] (SUPREP 00 provided. Medical BOWEL PREP Branch KIT) 17.5-3.13-1 .6 gram SolR sodium,pota Yes [id number] Please see [facility] [place] [facility] instructio ity of sulfates 00:00: [facility] (SUPREP 00 provided. Medical BOWEL PREP Branch KIT) 17.5-3.13-1 .6 gram SolR sodium,pota Yes [id number] Please see [facility] [place] [facility] instructio ity of sulfates 00:00: [facility] (SUPREP 00 provided. Medical BOWEL PREP Branch KIT) 17.5-3.13-1 .6 gram SolR sodium,pota Yes [id number] Please see [facility] [place] [facility] instructio ity of sulfates 00:00: [facility] (SUPREP 00 provided. Medical BOWEL PREP Branch KIT) 17.5-3.13-1 .6 gram SolR sodium,pota Yes [id number] Please see [facility] [place] [facility] instructio ity of sulfates 00:00: [facility] (SUPREP 00 provided. Medical BOWEL PREP Branch KIT) 17.5-3.13-1 .6 gram SolR sodium,pota Yes [id number] Please see [facility] [place] [facility] instructio ity of sulfates 00:00: [facility] (SUPREP 00 provided. Medical BOWEL PREP Branch KIT) 17.5-3.13-1 .6 gram SolR sodium,pota 2016-0 Yes [id number] Please see [facility] [place] [facility] 6-16 instructio ity of sulfates 00:00: ns [place] (SUPREP 00 provided. Medical BOWEL PREP Branch KIT) 17.5-3.13-1 .6 gram SolR sodium,pota 2016-0 Yes [id number] Please see [facility] [place] [facility] 6-16 instructio ity of sulfates 00:00: ns [place] (SUPREP 00 provided. Medical BOWEL PREP Branch KIT) 17.5-3.13-1 .6 gram SolR sodium,pota 2016-0 Yes [id number] Please see [facility] [place] [facility] 6-16 instructio ity of sulfates 00:00: ns [place] (SUPREP 00 provided. Medical BOWEL PREP Branch KIT) 17.5-3.13-1 .6 gram SolR sodium,pota 2016-0 Yes [id number] Please see [facility] [place] [facility] 6-16 instructio ity of sulfates 00:00: ns [place] (SUPREP 00 provided. Medical BOWEL PREP Branch KIT) 17.5-3.13-1 .6 gram SolR sodium,pota 2016-0 Yes [id number] Please see [facility] [place] [facility] 6-16 instructio ity of sulfates 00:00: ns [place] (SUPREP 00 provided. Medical BOWEL PREP Branch KIT) 17.5-3.13-1 .6 gram SolR sodium,pota 2016-0 Yes [id number] Please see [facility] [place] [facility] 6-16 instructio ity of sulfates 00:00: ns [place] (SUPREP 00 provided. Medical BOWEL PREP Branch KIT) 17.5-3.13-1 .6 gram SolR sodium,pota 2016-0 Yes [id number] Please see [facility] [place] [facility] 6-16 instructio ity of sulfates 00:00: ns [place] (SUPREP 00 provided. Medical BOWEL PREP Branch KIT) 17.5-3.13-1 .6 gram SolR sodium,pota 2016-0 Yes [id number] Please see [facility] [place] [facility] 6-16 instructio ity of sulfates 00:00: ns [place] (SUPREP 00 provided. Medical BOWEL PREP Branch KIT) 17.5-3.13-1 .6 gram SolR sodium,pota 2016-0 Yes [id number] Please see [facility] [place] [facility] 616 instructio ity of sulfates 00:00: ns [place] (SUPREP 00 provided. Medical BOWEL PREP Branch KIT) 17.5-3.13-1 .6 gram SolR sodium,pota 2016-0 Yes [id number] Please see [facility] 6-16 instructio ity of sulfates 00:00: [facility] (SUPREP 00 provided. Medical BOWEL PREP Branch KIT) 17.5-3.13-1 .6 gram SolR sodium,pota 2016-0 Yes [id number] Please see [facility] [place] [facility] 6-16 instructio ity of sulfates 00:00: [facility] (SUPREP 00 provided. Medical BOWEL PREP Branch KIT) 17.5-3.13-1 .6 gram SolR sodium,pota 2016-0 Yes [id number] Please see [facility] [place] [facility] 6-16 instructio ity of sulfates 00:00: [facility] (SUPREP 00 provided. Medical BOWEL PREP Branch KIT) 17.5-3.13-1 .6 gram SolR sodium,pota 2016-0 Yes [id number] Please see [facility] [place] [facility] 6-16 instructio ity of sulfates 00:00: [facility] (SUPREP 00 provided. Medical BOWEL PREP Branch KIT) 17.5-3.13-1 .6 gram SolR sodium,pota 2016-0 Yes [id number] Please see [facility] [place] [facility] 6-16 instructio ity of sulfates 00:00: [facility] (SUPREP 00 provided. Medical BOWEL PREP Branch KIT) 17.5-3.13-1 .6 gram SolR sodium,pota 2016-0 Yes [id number] Please see [facility] [place] [facility] 6-16 instructio ity of sulfates 00:00: [facility] (SUPREP 00 provided. Medical BOWEL PREP Branch KIT) 17.5-3.13-1 .6 gram SolR sodium,pota 2016-0 Yes [id number] Please see [facility] [place] [facility] 6-16 instructio ity of sulfates 00:00: [facility] (SUPREP 00 provided. Medical BOWEL PREP Branch KIT) 17.5-3.13-1 .6 gram SolR sodium,pota 2016-0 Yes [id number] Please see [facility] [place] [facility] 6-16 instructio ity of sulfates 00:00: [facility] (SUPREP 00 provided. Medical BOWEL PREP Branch KIT) 17.5-3.13-1 .6 gram SolR sodium,pota 2016-0 Yes [id number] Please see [facility] instructio ity of sulfates 00:00: ns [place] (SUPREP 00 provided. Medical BOWEL PREP Branch KIT) 17.5-3.13-1 .6 gram SolR sodium,pota 2016-0 Yes [id number] Please see [facility] instructio ity of sulfates 00:00: ns [place] (SUPREP 00 provided. Medical BOWEL PREP Branch KIT) 17.5-3.13-1 .6 gram SolR sodium,pota 2016-0 Yes [id number] Please see [facility] instructio ity of sulfates 00:00: [facility] (SUPREP 00 provided. Medical BOWEL PREP Branch KIT) 17.5-3.13-1 .6 gram SolR sodium,pota 2016-0 Yes [id number] Please see [facility] instructio ity of sulfates 00:00: [facility] (SUPREP 00 provided. Medical BOWEL PREP Branch KIT) 17.5-3.13-1 .6 gram SolR sodium,pota 2016-0 Yes [id number] Please see [facility]16 instructio ity of sulfates 00:00: [facility] (SUPREP 00 provided. Medical BOWEL PREP Branch KIT) 17.5-3.13-1 .6 gram SolR sodium,pota 2016-0 Yes [id number] Please see [facility] 6[facility]16 instructio ity of sulfates 00:00: [facility] (SUPREP 00 provided. Medical BOWEL PREP Branch KIT) 17.5-3.13-1 .6 gram SolR sodium,pota 2016-0 Yes [id number] Please see [facility] [place] [facility]16 instructio ity of sulfates 00:00: [facility] (SUPREP 00 provided. Medical BOWEL PREP Branch KIT) 17.5-3.13-1 .6 gram SolR sodium,pota 2016-0 Yes [id number] Please see [facility]16 instructio ity of sulfates 00:00: [facility] (SUPREP 00 provided. Medical BOWEL PREP Branch KIT) 17.5-3.13-1 .6 gram SolR sodium,pota 2016-0 Yes [id number] Please see [facility] [place] [facility] 6-16 instructio ity of sulfates 00:00: ns [place] (SUPREP 00 provided. Medical BOWEL PREP Branch KIT) 17.5-3.13-1 .6 gram SolR sodium,pota 2020- No [id number] Please see [facility] [place] [facility] 6-16 04-18 instructio ity of sulfates 00:00: 00:00 ns [place] (SUPREP 00 :00 provided. Medical BOWEL PREP Branch KIT) 17.5-3.13-1 .6 gram SolR buprenorphi 2020- No 15ug Apply 15 U nivers ne 5-27 02-14 mcg to ity of (BUTRANS) 00:00: 00:00 [place] 15 mcg/hour 00 :00 24 Medical PTWK (tw[facility] Branch ur) hours. buprenorphi 2019- No 15ug Apply 15 U nivers ne 5-27 02-14 mcg to ity of (BUTRANS) 00:00: 00:00 [place] 15 mcg/hour 00 :00 24 Medical [facility] ([facility] hours. ondansetron [id number] Yes Univer s (ZOFRAN) 4 5-18 ity [...] 5-18 ity of mg tablet 00:00: Medical [place] ondansetron 2016-0 Yes Univer s (ZOFRAN) 4 [...] ity of mg tablet 00:00: [place] 00 Medical Branch ondansetron Yes Univer s (ZOFRAN) 4 5-18 ity of mg tablet 00:00: Medical Branch ondansetron [id number] Yes Univer s (ZOFRAN) 4 5-18 ity of mg tablet 00:00: Medical Branch ondansetron Yes Univer s (ZOFRAN) 4 5-18 ity of mg tablet 00:00: Medical Branch ondansetron Yes Univer s (ZOFRAN) 4 5-18 ity of mg tablet 00:00: [place] [facility] ondansetron 2016 Yes Univer s (ZOFRAN) 4 5-18 ity of mg tablet 00:00: [place] [facility] ondansetron Yes Univer s (ZOFRAN) 4 5-18 ity of mg tablet 00:00: [place] [facility] ondansetron Yes Univer s (ZOFRAN) 4 5-18 ity of mg tablet 00:00: Medical Branch ondansetron Yes Univer s (ZOFRAN) 4 5-18 ity of mg tablet 00:00: [place] [facility] ondansetron Yes Univer s (ZOFRAN) 4 5-18 ity of mg tablet 00:00: [facility] ondansetron 0 2020- No Unive rs (ZOFRAN) 4 5-18 04-14 ity of mg tablet 00:00: 00:00 [place] 00 :00 Medical Branch LYRICA 75 2020- No Univers mg capsule 06-29 02-14 ity of 00:00: 00:00 [place] 00 :00 Medical Branch LYRICA 75 2020- No Univers mg capsule 18 02-14 ity of 00:00: 00:00 [place] 00 :00 [facility] mesalamine Yes 1000mg Take 2 Uni vers [...] (four) Medical capsule times Branch daily. HYDROcodone 2019- No 1{tbl} Take 1 U nivers -acetaminop 5-17 02-14 tablet by it y of hen (NORCO) 00:00: 00:00 mouth 2 [place] 10-325 mg 00 :00 (two) Medical tablet times Branch daily. HYDROcodone 2019- No 1{tbl} Take 1 U nivers -acetaminop 5-17 02-14 tablet by it y of hen (NORCO) 00:00: 00:00 mouth [place] 10-325 mg 00 :00 (two) Medical tablet times Branch daily. tamsulosin 2014-02 Yes .4mg Take 1 Cap U nivers (FLOMAX) 0-20 by mouth ity of 0.4 mg 24 00:00: daily. [place] capsule [facility] tamsulosin 2014-02 Yes .4mg Take 1 Cap U nivers (FLOMAX) 0-20 by mouth ity of 0.4 mg 24 00:00: daily. [place] hr capsule [facility] tamsulosin 2014-02 Yes .4mg Take 1 Cap U nivers (FLOMAX) 0-20 by mouth ity of 0.4 mg 24 00:00: daily. [place] hr capsule [facility] tamsulosin 2014-02 Yes .4mg Take 1 Cap U nivers (FLOMAX) 0-20 by mouth ity of 0.4 mg 24 00:00: daily. [place] hr capsule [facility] tamsulosin 2014-02 Yes .4mg Take 1 Cap U nivers (FLOMAX) 0-20 by mouth ity of 0.4 mg 24 00:00: daily. [place] hr capsule [facility] tamsulosin 2014-02 Yes .4mg Take 1 Cap U nivers (FLOMAX) 0-20 by mouth ity of 0.4 mg 24 00:00: daily. [place] hr capsule [facility] tamsulosin 2014-02 Yes .4mg Take 1 Cap U nivers (FLOMAX) 0-20 by mouth ity of 0.4 mg 24 00:00: daily. [facility] capsule [facility] tamsulosin 2014-02 Yes .4mg Take 1 Cap U nivers (FLOMAX) 0-20 by mouth ity of 0.4 mg 24 00:00: daily. [facility] capsule [facility] tamsulosin 2014-02 Yes .4mg Take 1 Cap U nivers (FLOMAX) 0-20 by mouth ity of 0.4 mg 24 00:00: daily. [facility] 2014[facility]02 Yes .4mg Take 1 Cap U nivers (FLOMAX) 0-20 by mouth ity of 0.4 mg 24 00:00: daily. [facility] capsule [facility] tamsulosin 2014-02 Yes .4mg Take 1 Cap U nivers (FLOMAX) 0-20 by mouth ity of 0.4 mg 24 00:00: daily. [facility] capsule [facility] tamsulosin 2014-02 Yes .4mg Take 1 Cap U nivers (FLOMAX) 0-20 by mouth ity of 0.4 mg 24 00:00: daily. [facility] capsule [facility] tamsulosin 2014-02 Yes .4mg Take 1 Cap U nivers (FLOMAX) 0-20 by mouth ity of 0.4 mg 24 00:00: daily. [facility] capsule [facility] tamsulosin 2014-02 Yes .4mg Take 1 Cap U nivers (FLOMAX) 0-20 by mouth ity of 0.4 mg 24 00:00: daily. [facility] capsule [facility] tamsulosin 2014-02 Yes .4mg Take 1 Cap U nivers (FLOMAX) 0-20 by mouth ity of 0.4 mg 24 00:00: daily. [facility] capsule [facility] tamsulosin 2014-02 Yes .4mg Take 1 Cap U nivers (FLOMAX) 0-20 by mouth ity of 0.4 mg 24 00:00: daily. [facility] capsule [facility] tamsulosin 2014-02 Yes .4mg Take 1 Cap U nivers (FLOMAX) 0-20 by mouth ity of 0.4 mg 24 00:00: daily. [facility] capsule [facility] tamsulosin 2014-02 Yes .4mg Take 1 Cap U nivers (FLOMAX) 0-20 by mouth ity of 0.4 mg 24 00:00: daily. [facility] capsule [facility] tamsulosin 2014-02 Yes .4mg Take 1 Cap U nivers (FLOMAX) 0-20 by mouth ity of 0.4 mg 24 00:00: daily. [facility] capsule [facility] tamsulosin 2014-02 Yes .4mg Take 1 Cap U nivers (FLOMAX) 0-20 by mouth ity of 0.4 mg 24 00:00: daily. [facility] capsule [facility] tamsulosin 2014-02 Yes .4mg Take 1 Cap U nivers (FLOMAX) 0-20 by mouth ity of 0.4 mg 24 00:00: daily. [facility] capsule [facility] tamsulosin 2014-02 Yes .4mg Take 1 Cap U nivers (FLOMAX) 0-20 by mouth ity of 0.4 mg 24 00:00: daily. [facility] tamsulosin 2014-02 Yes .4mg Take 1 Cap U nivers (FLOMAX) 0-20 by mouth ity of 0.4 mg 24 00:00: daily. [facility] tamsulosin 2014-02 Yes .4mg Take 1 Cap U nivers (FLOMAX) 0-20 by mouth ity of 0.4 mg 24 00:00: daily. [facility] capsule [facility] tamsulosin 2014-02 Yes .4mg Take 1 Cap U nivers (FLOMAX) 0-20 by mouth ity of 0.4 mg 24 00:00: daily. [facility] tamsulosin 2014-02 Yes .4mg Take 1 Cap U nivers (FLOMAX) 0-20 by mouth ity of 0.4 mg 24 00:00: daily. [facility] tamsulosin 2014-02 Yes .4mg Take 1 Cap U nivers (FLOMAX) 0-20 by mouth ity of 0.4 mg 24 00:00: daily. [facility] capsule [facility] tamsulosin 2014-02 Yes .4mg Take 1 Cap U nivers (FLOMAX) 0-20 by mouth ity of 0.4 mg 24 00:00: daily. [facility] tamsulosin 2014-02- No .4mg Take 1 Cap Univers (FLOMAX) 0-20 - by mouth ity of 0.4 mg 24 00:00: 00:00 daily. [place] hr capsule 00 :00 Medical Branch [place] Yes [place] [address] [facility] needed [facility] Amitriptyli Amitriptyli Yes [place] [address] [facility] [address] [facility] HCl ne HCl [facility] Zofran Zofran Yes [place] [address] [facility] Pentasa Pentasa Yes [place] [address] [facility] Lyrica Lyrica Yes [place] [address] [facility] 1 to 3 [facility] before l bedtime in [facility] evening Clinics Immunizations Ordered Filled Immunization Date Status Comments [facility] e Immunization Name Name Twinrix (hep a/hep 2015-07-29 Completed Univer sity of b) 00:00:00 [facility] Twinrix (hep a/hep 2015-07-29 Completed Univer sity of b) 00:00:00 [facility] Twinrix (hep a/hep 2015-07-29 Completed Univer sity of b) 00:00:00 [facility] Twinrix (hep a/hep 2015-07-29 Completed Univer sity of b) 00:00:00 [facility] Twinrix (hep a/hep 2015-07-29 Completed Univer sity of b) 00:00:00 [facility] Twinrix (hep a/hep 2015-07-29 Completed Univer sity of b) 00:00:00 [facility] Twinrix (hep a/hep 2015-07-29 Completed Univer sity of b) 00:00:00 [facility] Twinrix (hep a/hep 2015-07-29 Completed Univer sity of b) 00:00:00 [facility] Twinrix (hep a/hep 2015-07-29 Completed Univer sity of b) 00:00:00 [facility] Twinrix (hep a/hep 2015-07-29 Completed Univer sity of b) 00:00:00 [facility] Twinrix (hep a/hep 2015-07-29 Completed Univer sity of b) 00:00:00 [facility] Twinrix (hep a/hep 2015-07-29 Completed Univer sity of b) 00:00:00 [place] [facility] Twinrix (hep a/hep 2015-07-29 Completed Univer sity of b) 00:00:00 [place] [facility] Twinrix (hep a/hep 2015-07-29 Completed Univer sity of b) 00:00:00 [place] [facility] Twinrix (hep a/hep 2015-07-29 Completed Univer sity of b) 00:00:00 [place] [facility] Twinrix (hep a/hep 2015-07-29 Completed Univer sity of b) 00:00:00 [facility] Twinrix (hep a/hep 2015-07-29 Completed Univer sity of b) 00:00:00 [facility] Twinrix (hep a/hep 2015-07-29 Completed Univer sity of b) 00:00:00 [facility] Twinrix (hep a/hep 2015-07-29 Completed Univer sity of b) 00:00:00 [facility] Twinrix (hep a/hep 2015-07-29 Completed Univer sity of b) 00:00:00 [facility] Twinrix (hep a/hep 2015-07-29 Completed Univer sity of b) 00:00:00 [facility] Twinrix (hep a/hep 2015-07-29 Completed Univer sity of b) 00:00:00 [place] [facility] Twinrix (hep a/hep 2015-07-29 Completed Univer sity of b) 00:00:00 [place] [facility] Twinrix (hep a/hep 2015-07-29 Completed Univer sity of b) 00:00:00 [place] [facility] Twinrix (hep a/hep 2015-07-29 Completed Univer sity of b) 00:00:00 [place] [facility] Twinrix (hep a/hep 2015-07-29 Completed Univer sity of b) 00:00:00 [place] [facility] Twinrix (hep a/hep 2015-07-29 Completed Univer sity of b) 00:00:00 [facility] Twinrix (hep a/hep 2015-07-29 Completed Univer sity of b) 00:00:00 [place] [facility] Twinrix (hep a/hep 2015-07-29 Completed Univer sity of b) 00:00:00 [facility] Twinrix (hep a/hep 2015-07-29 Completed Univer sity of b) 00:00:00 [place] [facility] Twinrix (hep a/hep 2015-07-29 Completed Univer sity of b) 00:00:00 [facility] Twinrix (hep a/hep 2015-07-29 Completed Univer sity of b) 00:00:00 [facility] Twinrix (hep a/hep 2015-07-29 Completed Univer sity of b) 00:00:00 [facility] Twinrix (hep a/hep 2015-07-29 Completed Univer sity of b) 00:00:00 [facility] Twinrix (hep a/hep 2015-07-29 Completed Univer sity of b) 00:00:00 [facility] Twinrix (hep a/hep 2015-07-29 Completed Univer sity of b) 00:00:00 [facility] Twinrix (hep a/hep 2015-07-29 Completed Univer sity of b) 00:00:00 [facility] Twinrix (hep a/hep 2015-07-29 Completed Univer sity of b) 00:00:00 [facility] Twinrix (hep a/hep 2015-07-29 Completed Univer sity of b) 00:00:00 [facility] Twinrix (hep a/hep 2015-07-29 Completed Univer sity of b) 00:00:00 [facility] Twinrix (hep a/hep 2015-07-29 Completed Univer sity of b) 00:00:00 [facility] Twinrix (hep a/hep 2015-07-29 Completed Univer sity of b) 00:00:00 [facility] Twinrix (hep a/hep 2015-07-29 Completed Univer sity of b) 00:00:00 [facility] Twinrix (hep a/hep 2015-07-29 Completed Univer sity of b) 00:00:00 [facility] Twinrix (hep a/hep 2015-07-29 Completed Univer sity of b) 00:00:00 [facility] Twinrix (hep a/hep 2015-07-29 Completed Univer sity of b) 00:00:00 [facility] Twinrix (hep a/hep 2015-07-29 Completed Univer sity of b) 00:00:00 [facility] Twinrix (hep a/hep 2015-07-29 Completed Univer sity of b) 00:00:00 [facility] Twinrix (hep a/hep 2015-07-29 Completed Univer sity of b) 00:00:00 [facility] Twinrix (hep a/hep 2015-07-29 Completed Univer sity of b) 00:00:00 [facility] Twinrix (hep a/hep 2015-07-29 Completed Univer sity of b) 00:00:00 [facility] Twinrix (hep a/hep 2015-07-29 Completed Univer sity of b) 00:00:00 [facility] Twinrix (hep a/hep 2015-07-29 Completed Univer sity of b) 00:00:00 [facility] Twinrix (hep a/hep 2015-07-29 Completed Univer sity of b) 00:00:00 [facility] Twinrix (hep a/hep 2015-07-29 Completed Univer sity of b) 00:00:00 [facility] Twinrix (hep a/hep 2015-07-29 Completed Univer sity of b) 00:00:00 [facility] Twinrix (hep a/hep 2015-07-29 Completed Univer sity of b) 00:00:00 [facility] Twinrix (hep a/hep 2015-07-29 Completed Univer sity of b) 00:00:00 [facility] Twinrix (hep a/hep 2015-07-29 Completed Univer sity of b) 00:00:00 [facility] Twinrix (hep a/hep 2015-07-29 Completed Univer sity of b) 00:00:00 [facility] Twinrix (hep a/hep 2015-07-29 Completed Univer sity of b) 00:00:00 [facility] Influenza Virus 2015-06-29 Completed Universit y of Vaccine Quad IM 3+ 00:00:00 [facility] Influenza Virus 2015-06-29 Completed Universit y of Vaccine Quad IM 3+ 00:00:00 [facility] Influenza Virus 2015-06-29 Completed Universit y of Vaccine Quad IM 3+ 00:00:00 [facility] Influenza Virus 2015-06-29 Completed Universit y of Vaccine Quad IM 3+ 00:00:00 [facility] Influenza Virus 2015-06-29 Completed Universit y of Vaccine Quad IM 3+ 00:00:00 [facility] Influenza Virus 2015-06-29 Completed Universit y of Vaccine Quad IM 3+ 00:00:00 [facility] Influenza Virus 2015-06-29 Completed Universit y of Vaccine Quad IM 3+ 00:00:00 [facility] Influenza Virus 2015-06-29 Completed Universit y of Vaccine Quad IM 3+ 00:00:00 [facility] Influenza Virus 2015-06-29 Completed Universit y of Vaccine Quad IM 3+ 00:00:00 [facility] Influenza Virus 2015-06-29 Completed Universit y of Vaccine Quad IM 3+ 00:00:00 [facility] Influenza Virus 2015-06-29 Completed Universit y of Vaccine Quad IM 3+ 00:00:00 [facility] Influenza Virus 2015-06-29 Completed Universit y of Vaccine Quad IM 3+ 00:00:00 [facility] Influenza Virus 2015-06-29 Completed Universit y of Vaccine Quad IM 3+ 00:00:00 [facility] Influenza Virus 2015-06-29 Completed Universit y of Vaccine Quad IM 3+ 00:00:00 [facility] Influenza Virus 2015-06-29 Completed Universit y of Vaccine Quad IM 3+ 00:00:00 [facility] Influenza Virus 2015-06-29 Completed Universit y of Vaccine Quad IM 3+ 00:00:00 [facility] Influenza Virus 2015-06-29 Completed Universit y of Vaccine Quad IM 3+ 00:00:00 [facility] Influenza Virus 2015-06-29 Completed Universit y of Vaccine Quad IM 3+ 00:00:00 [facility] Influenza Virus 2015-06-29 Completed Universit y of Vaccine Quad IM 3+ 00:00:00 [facility] Influenza Virus 2015-06-29 Completed Universit y of Vaccine Quad IM 3+ 00:00:00 [facility] Influenza Virus 2015-06-29 Completed Universit y of Vaccine Quad IM 3+ 00:00:00 [facility] Influenza Virus 2015-06-29 Completed Universit y of Vaccine Quad IM 3+ 00:00:00 [facility] Influenza Virus 2015-06-29 Completed Universit y of Vaccine Quad IM 3+ 00:00:00 [facility] Influenza Virus 2015-06-29 Completed Universit y of Vaccine Quad IM 3+ 00:00:00 [facility] Influenza Virus 2015-06-29 Completed Universit y of Vaccine Quad IM 3+ 00:00:00 [facility] Influenza Virus 2015-06-29 Completed Universit y of Vaccine Quad IM 3+ 00:00:00 [facility] Influenza Virus 2015-06-29 Completed Universit y of Vaccine Quad IM 3+ 00:00:00 [facility] Influenza Virus 2015-06-29 Completed Universit y of Vaccine Quad IM 3+ 00:00:00 [facility] Influenza Virus 2015-06-29 Completed Universit y of Vaccine Quad IM 3+ 00:00:00 [facility] Influenza Virus 2015-06-29 Completed Universit y of Vaccine Quad IM 3+ 00:00:00 [facility] Influenza Virus 2015-06-29 Completed Universit y of Vaccine Quad IM 3+ 00:00:00 [facility] Influenza Virus 2015-06-29 Completed Universit y of Vaccine Quad IM 3+ 00:00:00 [facility] Influenza Virus 2015-06-29 Completed Universit y of Vaccine Quad IM 3+ 00:00:00 [facility] Influenza Virus 2015-06-29 Completed Universit y of Vaccine Quad IM 3+ 00:00:00 [facility] Influenza Virus 2015-06-29 Completed Universit y of Vaccine Quad IM 3+ 00:00:00 [facility] Influenza Virus 2015-06-29 Completed Universit y of Vaccine Quad IM 3+ 00:00:00 [facility] Influenza Virus 2015-06-29 Completed Universit y of Vaccine Quad IM 3+ 00:00:00 [facility] Influenza Virus 2015-06-29 Completed Universit y of Vaccine Quad IM 3+ 00:00:00 [facility] Influenza Virus 2015-06-29 Completed Universit y of Vaccine Quad IM 3+ 00:00:00 [facility] Influenza Virus 2015-06-29 Completed Universit y of Vaccine Quad IM 3+ 00:00:00 [facility] Influenza Virus 2015-06-29 Completed Universit y of Vaccine Quad IM 3+ 00:00:00 [facility] Influenza Virus 2015-06-29 Completed Universit y of Vaccine Quad IM 3+ 00:00:00 [facility] Influenza Virus 2015-06-29 Completed Universit y of Vaccine Quad IM 3+ 00:00:00 [facility] Influenza Virus 2015-06-29 Completed Universit y of Vaccine Quad IM 3+ 00:00:00 [facility] Influenza Virus 2015-06-29 Completed Universit y of Vaccine Quad IM 3+ 00:00:00 [facility] Influenza Virus 2015-06-29 Completed Universit y of Vaccine Quad IM 3+ 00:00:00 [facility] Influenza Virus 2015-06-29 Completed Universit y of Vaccine Quad IM 3+ 00:00:00 [facility] Influenza Virus 2015-06-29 Completed Universit y of Vaccine Quad IM 3+ 00:00:00 [facility] Influenza Virus 2015-06-29 Completed Universit y of Vaccine Quad IM 3+ 00:00:00 [facility] Influenza Virus 2015-06-29 Completed Universit y of Vaccine Quad IM 3+ 00:00:00 [place] [facility] Influ[facility] Virus 2015-06-29 Completed [facility] 3+ 00[facility]00:00 [facility] Influenza Virus 2015-06-29 Completed [facility] IM 3+ 00:00:00 [facility] Influenza Virus 2015-06-29 Completed [facility] IM 3+ 00:00:00 [facility] Influenza Virus 2015-06-29 Completed [facility] IM 3+ 00:00:00 [facility] Influenza Virus 2015-06-29 Completed [facility] IM 3+ 00:00:00 [facility] Influenza Virus 2015-06-29 Completed [facility] IM 3+ 00:00:00 [facility] Influenza Virus 2015-06-29 Completed [facility] IM 3+ 00:00:00 [facility] Influenza Virus 2015-06-29 Completed [facility] IM 3+ 00:00:00 [facility] Influenza Virus 2015-06-29 Completed [facility] IM 3+ 00:00:00 [facility] Influenza Virus 2015-06-29 Completed [facility]ine [facility] IM 3+ 00:00:00 [facility] Influenza Virus 2015-06-29 Completed [facility]ine [facility] IM 3+ 00:00:00 [facility] Twinrix (hep a/hep 2015-06-28 Completed Univer sity of b) 00:00:00 [facility] Twinrix (hep a/hep 2015-06-28 Completed Univer sity of b) 00:00:00 [facility] Twinrix (hep a/hep 2015-06-28 Completed Univer sity of b) 00:00:00 [facility] Twinrix (hep a/hep 2015-06-28 Completed Univer sity of b) 00:00:00 [facility] Twinrix (hep a/hep 2015-06-28 Completed Univer sity of b) 00:00:00 [facility] Twinrix (hep a/hep 2015-06-28 Completed Univer sity of b) 00:00:00 [facility] Twinrix (hep a/hep 2015-06-28 Completed Univer sity of b) 00:00:00 [facility] Twin[facility] (hep a/hep 2015-06-28 Completed Univer sity of b) 00:00:00 [facility] Twin[facility] (hep a/hep 2015-06-28 Completed Univer sity of b) 00:00:00 [facility] Twin[facility] (hep a/hep 2015-06-28 Completed Univer sity of b) 00:00:00 [facility] Twin[facility] (hep a/hep 2015-06-28 Completed Univer sity of b) 00:00:00 [facility] Twin[facility] (hep a/hep 2015-06-28 Completed Univer sity of b) 00:00:00 [facility] Twin[facility] (hep a/hep 2015-06-28 Completed Un[facility] sity of b) 00:00:00 [facility] Twin[facility] (hep a/hep 2015-06-28 Completed Un[facility] sity of b) 00:00:00 [facility] Twinrix (hep a/hep 2015-06-28 Completed Univer sity of b) 00:00:00 [facility] Twinrix (hep a/hep 2015-06-28 Completed Univer sity of b) 00:00:00 [facility] Twinrix (hep a/hep 2015-06-28 Completed Univer sity of b) 00:00:00 [facility] Twinrix (hep a/hep 2015-06-28 Completed Univer sity of b) 00:00:00 [facility] (hep a/hep 2015-06-28 Completed Univer sity of b) 00:00:00 [facility] (hep a/hep 2015-06-28 Completed Univer sity of b) 00:00:00 [facility] (hep a/hep 2015-06-28 Completed [facility] sity of b) 00:00:00 [facility] Twinrix (hep a/hep 2015-06-28 Completed Univer sity of b) 00:00:00 [facility] Twin[facility] (hep a/hep 2015-06-28 Completed Univer sity of b) 00:00:00 [facility] Twin[facility] (hep a/hep 2015-06-28 Completed Univer sity of b) 00:00:00 [facility] Twin[facility] (hep a/hep 2015-06-28 Completed Univer sity of b) 00:00:00 [facility] Twin[facility] (hep a/hep 2015-06-28 Completed Univer sity of b) 00:00:00 [facility] Twin[facility] (hep a/hep 2015-06-28 Completed Univer sity of b) 00:00:00 [facility] (hep a/hep 2015-06-28 Completed Univer sity of b) 00:00:00 [facility] Twin[facility] (hep a/hep 2015-06-28 Completed Univer sity of b) 00:00:00 [facility] (hep a/hep 2015-06-28 Completed Univer sity of b) 00:00:00 [facility] (hep a/hep 2015-06-28 Completed Univer sity of b) 00:00:00 [facility] (hep a/hep 2015-06-28 Completed Univer sity of b) 00:00:00 [facility] Twin[facility] (hep a/hep 2015-06-28 Completed Univer sity of b) 00:00:00 [facility] (hep a/hep 2015-06-28 Completed Univer sity of b) 00:00:00 [facility] Twinrix (hep a/hep 2015-06-28 Completed Univer sity of b) 00:00:00 [facility] (hep a/hep 2015-06-28 Completed Univer sity of b) 00:00:00 [facility] Twin[facility] (hep a/hep 2015-06-28 Completed Univer sity of b) 00:00:00 [facility] Twin[facility] (hep a/hep 2015-06-28 Completed Univer sity of b) 00:00:00 [facility] Twin[facility] (hep a/hep 2015-06-28 Completed Univer sity of b) 00:00:00 [facility] Twin[facility] (hep a/hep 2015-06-28 Completed Univer sity of b) 00:00:00 [facility] Twin[facility] (hep a/hep 2015-06-28 Completed Univer sity of b) 00:00:00 [facility] Twin[facility] (hep a/hep 2015-06-28 Completed Univer sity of b) 00:00:00 [facility] Twin[facility] (hep a/hep 2015-06-28 Completed Univer sity of b) 00:00:00 [facility] Twin[facility] (hep a/hep 2015-06-28 Completed [facility]iver sity of b) 00:00:00 [facility] Twinrix (hep a/hep 2015-06-28 Completed [facility] sity of b) 00:00:00 [facility] Twin[facility] (hep a/hep 2015-06-28 Completed Univer sity of b) 00:00:00 [facility] Twinrix (hep a/hep 2015-06-28 Completed Univer sity of b) 00:00:00 [facility] Twin[facility] (hep a/hep 2015-06-28 Completed Univer sity of b) 00:00:00 [facility] Twin[facility] (hep a/hep 2015-06-28 Completed Univer sity of b) 00:00:00 [facility] Twin[facility] (hep a/hep 2015-06-28 Completed [facility] sity of b) 00:00:00 [facility] Twin[facility] (hep a/hep 2015-06-28 Completed [facility] of b) 00:00:00 [facility] Twinrix (hep a/hep 2015-06-28 Completed Univer sity of b) 00:00:00 [facility] Twin[facility] (hep a/hep 2015-06-28 Completed Univer sity of b) 00:00:00 [facility] Twin[facility] (hep a/hep 2015-06-28 Completed Univer sity of b) 00:00:00 [facility] Twin[facility] (hep a/hep 2015-06-28 Completed Univer sity of b) 00:00:00 [facility] Twin[facility] (hep a/hep 2015-06-28 Completed [facility]iver sity of b) 00:00:00 [facility] Twin[facility] (hep a/hep 2015-06-28 Completed [facility]iver sity of b) 00:00:00 [facility] Twin[facility] (hep a/hep 2015-06-28 Completed [facility]iver sity of b) 00:00:00 [facility] (hep a/hep 2015-06-28 Completed [facility] sity of b) 00:00:00 [facility] (hep a/hep 2015-06-28 Completed [facility] sity of b) 00:00:00 [facility] (hep a/hep 2015-06-28 Completed [facility] of b) 00:00:00 [facility] Vital Signs Vital Name Observation Time Observation Value Comments Source Systolic blood 2020-12-12 16:16:00 97 mm[Hg] [facility]iver sity of pressure [facility] Diastolic blood 2020-12-12 16:16:00 67 mm[Hg] Unive rsity of pressure [facility] Heart rate 2020-12-12 16:16:00 97 /min [facility] Body temperature 2020-12-12 16:16:00 37.67 Briseida [facility] 2020-12-12 16:16:00 18 /min [facility] Oxygen saturation in 2020-12-12 16:16:00 93 /min [facility] Arterial blood by [facility] Pulse oximetry Branch Body weight 2020-12-12 08:45:00 95.391 kg [facility] BMI 2020-12-12 08:45:00 32.94 kg/m2 [facility] Body height 2020-12-05 22:36:00 170.2 cm [facility] Systolic blood 2020-07-14 22:03:00 156 mm[Hg] [facility] pressure [facility] Diastolic blood 2020-07-14 22:03:00 93 mm[Hg] [facility]ive rsity of pressure [facility] Heart rate 2020-07-14 22:03:00 84 /min [facility] Respiratory rate 2020-07-14 22:03:00 20 /min [facility] ers[facility] Oxygen saturation in 2020-07-14 22:03:00 98 /min [facility] Arterial blood by [email or web address] [facility] Pulse oximetry [facility] Body temperature 2020-07-14 03:11:00 36.67 Briseida [facility] Body weight 2020-07-13 20:13:00 83.898 kg [facility] BMI 2020-07-13 20:13:00 28.97 kg/m2 [facility] Systolic blood 2020-07-13 15:43:00 119 mm[Hg] [facility] pressure [facility] Diastolic blood 2020-07-13 15:43:00 77 mm[Hg] Unive rsity of pressure [facility] Heart rate 2020-07-13 15:43:00 68 /min [facility] Oxygen saturation in 2020-07-13 15:43:00 95 /min [facility] of Arterial blood by [facility]ernadine Pulse oximetry Branch Systolic blood 2020-07-07 04:00:00 142 mm[Hg] Univer sity of pressure [facility] Diastolic blood 2020-07-07 04:00:00 94 mm[Hg] Unive rsity of pressure [facility] Heart rate 2020-07-07 04:00:00 73 /min [facility] Respiratory rate 2020-07-07 04:00:00 13 /min [facility] ers[facility] Oxygen saturation in 2020-07-07 04:00:00 99 /min [facility] Arterial blood by [place] [email or web address] [facility] Body temperature 2020-07-07 00:04:24 36.83 Briseida [facility] Body weight 2020-07-06 23:44:00 86.183 kg [facility] BMI 2020-07-06 23:44:00 29.76 kg/m2 [facility] Systolic blood 2020-07-04 21:16:00 142 mm[Hg] [facility] Diastolic blood 2020-07-04 21:16:00 93 mm[Hg] [facility]ive rsity of pressure [facility] Heart rate 2020-07-04 21:16:00 72 /min [facility] Respiratory rate 2020-07-04 21:16:00 18 /min [facility] Oxygen saturation in 2020-07-04 21:16:00 97 /min [facility] Arterial blood by [place] [employer] [facility] Body temperature 2020-07-04 17:14:00 36.89 Briseida [facility] Body weight 2020-07-04 17:14:00 86.183 kg [facility] BMI 2020-07-04 17:14:00 29.76 kg/m2 [facility] Systolic blood 2020-06-28 20:07:00 110 mm[Hg] [facility] pressure [facility] Diastolic blood 2020-06-28 20:07:00 67 mm[Hg] [facility]ive rsity of pressure [facility] Heart rate 2020-06-28 20:07:00 57 /min [facility] Body temperature 2020-06-28 20:07:00 36.83 Briseida [facility] Respiratory rate 2020-06-28 20:07:00 16 /min [facility] Oxygen saturation in 2020-06-28 20:07:00 99 /min [facility] Arterial blood by [place] [email or web address] [facility] P[facility] Body height 2020-06-27 03:02:00 170.2 cm [facility] Body weight 2020-06-27 03:02:00 83.008 kg [facility] BMI 2020-06-27 03:02:00 28.66 kg/m2 [facility] Systolic blood 2020-06-02 16:17:00 133 mm[Hg] [facility] pressure [facility] Diastolic blood 2020-06-02 16:17:00 89 mm[Hg] Unive rsity of pressure [facility] Heart rate 2020-06-02 16:17:00 72 /min [facility] Body temperature 2020-06-02 16:17:00 36.17 Briseida [facility] Respiratory rate 2020-06-02 16:17:00 20 /min [facility] Oxygen saturation in 2020-06-02 16:17:00 96 /min [facility] Arterial blood by [facility] Pulse oximetry Branch Body height 2020-05-30 22:29:00 170.2 cm [facility] Body weight 2020-05-30 22:29:00 81.647 kg [facility] BMI 2020-05-30 22:29:00 28.19 kg/m2 [facility] Systolic blood 2020-05-27 02:05:00 118 mm[Hg] [facility] pressure [facility] Diastolic blood 2020-05-27 02:05:00 73 mm[Hg] Unive rsity of pressure [facility] Heart rate 2020-05-27 02:05:00 80 /min [facility] Respiratory rate 2020-05-27 02:05:00 10 /min [facility] Oxygen saturation in 2020-05-27 02:05:00 93 /min [facility] Arterial blood by [facility] Pulse oxim[facility] Branch Body temperature 2020-05-26 23:07:00 37.22 Briseida [facility] Body height 2020-05-26 23:07:00 170.2 cm [facility] Body weight 2020-05-26 23:07:00 88.451 kg [facility] BMI 2020-05-26 23:07:00 30.54 kg/m2 [facility] Systolic blood 2020-05-13 22:00:00 106 mm[Hg] [facility] pressure [facility] Diastolic blood 2020-05-13 22:00:00 57 mm[Hg] [facility]ive rsity of pressure [facility] Heart rate 2020-05-13 22:00:00 54 /min [facility] Respiratory rate 2020-05-13 22:00:00 16 /min [facility] Oxygen saturation in 2020-05-13 22:00:00 100 /min [facility] Arterial blood by [facility] Pulse oximetry Branch Body temperature 2020-05-13 16:33:00 37.56 Briseida [facility] Body weight 2020-05-13 16:33:00 77.111 kg [facility] BMI 2020-05-13 16:33:00 26.63 kg/m2 [facility] Systolic blood 2020-05-13 15:28:00 135 mm[Hg] [facility]iver [facility]ity of pressure [facility] Diastolic blood 2020-05-13 15:28:00 88 mm[Hg] Unive rsity of pressure [facility] Heart rate 2020-05-13 15:28:00 80 /min [facility] Body temperature 2020-05-13 15:28:00 36.67 Briseida [facility] Respiratory rate 2020-05-13 15:28:00 18 /min [facility] Body height 2020-05-13 15:28:00 170.2 cm [facility] Body weight 2020-05-13 15:28:00 77.111 kg [facility] BMI 2020-05-13 15:28:00 26.63 kg/m2 [facility] Oxygen saturation in 2020-05-13 15:28:00 99 /min [facility] Arterial blood by [facility] Pulse oximetry Branch Systolic blood 2020-03-23 15:48:00 130 mm[Hg] [facility]iver [facility]ity of pressure [facility] Diastolic blood 2020-03-23 15:48:00 89 mm[Hg] Unive rsity of pressure [facility] Heart rate 2020-03-23 15:48:00 95 /min [facility] Body height 2020-03-23 15:48:00 170.2 cm [facility] Body weight 2020-03-23 15:48:00 83.008 kg [facility] BMI 2020-03-23 15:48:00 28.66 kg/m2 [facility] Oxygen saturation in 2020-03-23 15:48:00 100 /min [facility] Arterial blood by [facility] Pulse oxim[facility] Branch Systolic blood 2019-12-08 18:48:47 99 mm[Hg] [facility] Diastolic blood 2019-12-08 18:48:47 70 mm[Hg] Unive rsity of pressure [facility] Heart rate 2019-12-08 18:48:47 63 /min [facility] Respiratory rate 2019-12-08 18:48:47 18 /min [facility] [place] Oxygen saturation in 2019-12-08 18:48:47 100 /min [facility] Arterial blood by [facility] Pulse oxim[facility] Branch Body temperature 2019-12-08 16:07:00 37 Briseida [facility] ersity of [facility] Body height 2019-12-08 16:07:00 170.2 cm [facility] [place] Body weight 2019-12-08 16:07:00 81.647 kg [facility] [place] BMI 2019-12-08 16:07:00 28.19 kg/m2 [facility] [place] Systolic blood 2019-12-08 15:11:00 119 mm[Hg] Univer sity of pressure [facility] Diastolic blood 2019-12-08 15:11:00 80 mm[Hg] Unive rsity of pressure [facility] Heart rate 2019-12-08 15:11:00 83 /min [facility] [place] Body temperature 2019-12-08 15:11:00 36.44 Briseida [facility] Respiratory rate 2019-12-08 15:11:00 18 /min Univ ersity [facility] Body weight 2019-12-08 15:11:00 82.827 kg [facility] [place] BMI 2019-12-08 15:11:00 28.60 kg/m2 [facility] Procedures Procedure Date / Time Performing Clinician Source Performed PHOSPHORUS 2020-12-12 10:06:[address] [facility] MAGNESIUM 2020-12-12 10:06:[address] [facility] BASIC METABOLIC PANEL 2020-12-12 10:06:00 [facility], CL, CO2, GLUCOSE, Medica [facility] Branch BUN, CREATININE, CA) VANCOMYCIN RANDOM LEVEL 2020-12-11 14:30:00 Nasir Fowler [facility] OSMOLALITY URINE 2020-12-11 10:41:[address] [facility] CREATININE, URINE RANDOM 2020-12-11 10:39:00 [facility] POT[facility], URINE RANDOM 2020-12-11 10:39:00 Nicole Sanchez Uni [facility] SODIUM, URINE RANDOM 2020-12-11 10:39:00 Nicole Sanchez [facility] PHOSPHORUS 2020-12-11 08:50:[address] [facility] URIC ACID 2020-12-11 08:50:[address] [facility] MAGNESIUM 2020-12-11 08:50:[address] [facility] OSMOLALITY, SERUM OR 2020-12-11 08:50:00 Nicole [facility] BASIC METABOLIC PANEL 2020-12-11 08:50:00 Ad Remy [facility] (NA, K, CL, CO2, GLUCOSE, Medica l Branch BUN, CREATININE, CA) CBC WITH DIFF 2020-12-11 08:50:00 Janeth [facility] URINALYSIS 2020-12-10 20:31[facility] 2020-12-10 20:31[facility]00 [facility] BLO[facility]EN 2020-12-10 17:58:00 Janeth Nasir [facility] BLOOD CULTURE SCREEN 2020-12-10 17:51:00 Janeth Nasir [facility] PHOSPHORUS 2020-12-10 17:50:00 [facility] BASIC METABOLIC PANEL 2020-12-10 17:50:00 Nicole Sanchez [facility] (NA, K, CL, CO2, GLUCOSE, Medica l Branch BUN, CREATININE, CA) CBC WITH DIFF 2020-12-10 17:49:00 Janeth [facility] XR CHEST 1 VW 2020-12-10 17:21:04 Janeth [facility] VANCOMYCIN TROUGH 2020-12-10 14:44:00 Sandrita [facility] PHOSPHORUS 2020-12-10 10:29:[address] [facility] MAGNESIUM 2020-12-10 10:29:[address] [facility] BASIC METABOLIC PANEL 2020-12-10 10:29[facility] ([facility], K, CL, CO2, GLUCOSE, Medica [facility] Branch BUN, CREATININE, CA) BASIC METABOLIC PANEL 2020-12-10 00:50:00 Nicole Sanchez [facility] (NA, K, CL, CO2, GLUCOSE, Medica l Branch BUN, CREATININE, CA) VANCOMYCIN TROUGH 2020-12-09 19:02:00 Sandrita [facility] PHOSPHORUS 2020-12-09 09:58:[address] [facility] MAGNESIUM 2020-12-09 09:58:[address] [facility] BASIC METABOLIC PANEL 2020-12-09 09:58:00 [facility] (NA, K, CL, CO2, GLUCOSE, Medica l Branch BUN, CREATININE, CA) CT ABDOMEN PELVIS W 2020-12-08 17:35:25 Lesley Jay [facility] CONTRAST [facility] PHOSPHORUS 2020-12-08 09:38:[address] [facility] MAGNESIUM 2020-12-08 09:38:00 [facility]OLIC PANEL 2020-12-08 09:38:00 Sandrita [facility] (NA, K, CL, CO2, GLUCOSE, Medica l Branch BUN, CREATININE, CA) VANCOMYCIN TROUGH 2020-12-08 06:35:00 [facility] (TTE[facility] 2020-12-07 18:35:00 [facility] MAGNESIUM 2020-12-07 09:59:00 [facility] BASIC METABOLIC PANEL 2020-12-07 09:59:00 [facility] (NA, K, CL, CO2, GLUCOSE, Medica l Branch BUN, CREATININE, CA) CBC WITH DIFF 2020-12-07 09:59:00 [facility] BASIC METABOLIC PANEL 2020-12-07 02:15:00 [facility] (NA, K, CL, CO2, GLUCOSE, Medica l Branch BUN, CREATININE, CA) MAGNESIUM 2020-12-06 15:50:00 [facility] BASIC METABOLIC PANEL 2020-12-06 15:50:00 [facility] (NA, K, CL, CO2, GLUCOSE, Medica l Branch BUN, CREATININE, CA) CBC WITH DIFF 2020-12-06 15:50:00 [facility] MAGNESIUM 2020-12-05 22:29:00 [facility] BASIC METABOLIC PANEL 2020-12-05 22:29:00 Lisandra Eagle [facility] (NA, K, CL, CO2, GLUCOSE, Medica l Branch BUN, CREATININE, CA) CT HEAD WO CONTRAST 2020-12-05 20:11:36 Lisandra Eagle [facility] POCT GLUCOSE(AGE >30DAYS) 2020-12-05 19:44:00 [facility] 2020-12-05 18:53:00 Lisandra Eagle [facility] URINE DRUG (IMMUNOASSAY) 2020-12-05 18:49:00 Lisandra Eagle [facility] Medical [facility] SCREEN URINALYSIS 2020-12-05 18:49:[address] [facility] URINE CULTURE 2020-12-05 18:49:[address] [facility] EXTRA TUBE LT. BLUE 2020-12-05 18:49:00 Lisandra Eagle [facility] XR CHEST 1 VW 2020-12-05 18:44:[address] [facility] COVID-19 (ID NOW RAPID 2020-12-05 18:39:00 Lisandra Eagle [facility] TESTING) [facility] [place] LAB ONLY COVID 2020-12-05 18:39:[address] [facility] INTERPRETATION [facility] BLOOD CULTURE SCREEN 2020-12-05 18:35:00 [facility] 2020-12-05 18:35:[address] [facility] MAGNESIUM 2020-12-05 18:35:[address] [facility] TROPONIN I 2020-12-05 18:35:[address] [facility] THYROID STIMULATING 2020-12-05 18:35:00 Lisandra Eagle [facility] COMP. METABOLIC PANEL 2020-12-05 18:35:00 Lisandra Eagle [facility] ([id number] CBC WITH DIFF 2020-12-05 18:35:[address] [facility] LACTIC ACID WHOLE BLOOD 2020-12-05 18:34:00 Lisandra Eagle [facility] AC PANEL 20 + LACTIC ACID 2020-12-05 18:34:00 [facility] HB ECG ROUTINE & RHYTHM 2020-12-05 18:24:21 Lisandra Eagle [facility] PHYSICIAN ORDERS 2020-09-09 05:01:00 Doctor Unassigned, [facility] CBC WITH DIFF 2020-08-09 17:14:00 Luisa, [facility] URINALYSIS 2020-08-09 17:14:00 [facility] RHEUMATOID FACTOR 2020-08-09 17:14:[address] [facility] C-REACTIVE PROTEIN 2020-08-09 17:14:00 Leigh Moran [facility] COMP. METABOLIC PANEL 2020-08-09 17:14:00 Leigh Moran [facility] ([id number]) [facility] SEDIMENTATION RATE 2020-08-09 17:14:00 [facility] ANTI-SSB(LA) 2020-08-09 17:14:00 [facility] ADC OR LEXX ONLY - RPR 2020-08-09 17:14:00 [facility] AG-AB WITH REFLEX 2020-08-09 17:14:00 Leigh Moran [facility] ASSIGNMENT OF BENEFITS 2020-08-09 16:41:17 Doctor Unassigned, Un [facility] BODY FLUID DIRECT COUNT 2020-07-14 20:10:00 Hansel Kennedy [facility] CSF CULTURE 2020-07-14 20:10:00 Hansel Kennedy [facility] [place] CEREBROSPINAL FLUID 2020-07-14 20:09:00 Hansel Kennedy [facility] PROTEIN [facility] CEREBROSPINAL FLUID 2020-07-14 20:09:00 Hansel Kennedy [facility] GLUCOSE [facility] EXTRA TUBE CSF 2020-07-14 20:09:00 Hansel Kennedy [facility] [place] MENINGITIS/ENCEPHALITIS 2020-07-14 20:09:[address] [facility] PANEL BY PCR [facility] POCT GLUCOSE (AUTOMATED) 2020-07-14 14:55:00 Christina Roque [facility] MAGNESIUM 2020-07-14 13:11:00 Hansel Kennedy [facility] [place] PHOSPHORUS 2020-07-14 13:10:00 Tito brayden Tariq o [facility] XR CHEST 1 VW 2020-07-14 13:06:38 Hansel Kennedy [facility] [place] URINALYSIS 2020-07-14 09:32:[address] [facility] COVID-19 (ID NOW RAPID 2020-07-14 09:25:00 Bhaskar Reyna [facility] TESTING) Medical Branch C-REACTIVE PROTEIN 2020-07-14 01:10:00 Bhaskar Reyna [facility] HEPATIC FUNCTION PANEL 2020-07-14 01:10:00 Axel Bhaskar B [facility] ([id number]) (ALB,T.PRO,BILI Medical Branch T,BU/BC,ALT,AST,ALK PHOS) BASIC METABOLIC PANEL 2020-07-14 01:10:00 Bhaskar Reyna [facility] (NA, K, CL, CO2, GLUCOSE, Medica l Branch BUN, CREATININE, CA) SEDIMENTATION RATE 2020-07-14 01:10:00 Bhaskar Reyna [facility] CBC WITH DIFF 2020-07-14 01:10:[address] [facility] AUTHORIZATION FOR RELEASE 2020-07-08 05:01:00 Doctor Georgia, [facility] OF [facility] REFERRAL- 2020-07-07 05:01:00 Doctor Georgia, [facility] REQUEST/RESPONSE [facility] CBC WITH DIFF 2020-07-07 03:16:[address] [facility] NOTICE OF PRIVACY 2020-07-06 23:35:30 Doctor Georgia, [facility] PRACTICES [facility] CONSENT/REFUSAL FOR 2020-07-06 23:35:07 Doctor Ho [facility] DIAGNOSIS AND TREATMENT [facility] CT HEAD WO CONTRAST 2020-07-04 19:42:39 Lety Noriega [facility] LIPASE 2020-07-04 18:56:00 Lety Noriega [facility] COMP. METABOLIC PANEL 2020-07-04 18:56:00 Lety Noriega [facility] ([id number]) Medical [place] CBC WITH DIFF 2020-07-04 18:56:00 Lety Noriega [facility] URINALYSIS 2020-07-04 18:56:00 [facility] CONSENT/REFUSAL FOR 2020-07-04 17:04:54 Doctor Unassigned, [facility] DIAGNOSIS AND TREATMENT [facility] TROPONIN I 2020-06-27 16:14:00 [facility] MR BRAIN WO CONTRAST 2020-06-27 10:20:11 Jose Cintron [facility] COVID-19 (ID NOW RAPID 2020-06-26 22:32:00 Tung [facility] TESTING) [facility] CT ANGIOGRAM HEAD 2020-06-26 22:14:19 [facility] CT ANGIOGRAM NECK 2020-06-26 22:14:19 [facility] CT HEAD WO CONTRAST 2020-06-26 22:02:20 Tung SabrinaAdena [facility] URINALYSIS 2020-06-26 21:28:00 Tung [facility] XR CHEST 1 VW 2020-06-26 20:27:04 Tung [facility] TROPONIN I 2020-06-26 20:24:00 Tung [facility] HEPATIC FUNCTION PANEL 2020-06-26 20:24:00 Ruby, [facility] ([id number]) (ALB,T.PRO,BILI Medical Branch T,BU/BC,ALT,AST,ALK PHOS) BASIC METABOLIC PANEL 2020-06-26 20:24:00 Ruby, Sabrina [facility] (NA, K, CL, CO2, GLUCOSE, Medica l Branch BUN, CREATININE, CA) SEDIMENTATION RATE 2020-06-26 20:24:00 Sabrina Ruby [facility] CBC WITH DIFF 2020-06-26 20:24:[address] [facility] & RHYTHM 2020-06-26 20:16:57 Sabrina Ruby [facility] CONSENT/REFUSAL FOR 2020-06-26 20:02:52 Doctor Unassigned, [facility] DIAGNOSIS AND TREATMENT [facility] COMP. METABOLIC PANEL 2020-06-01 09:54:00 Zenaida Rodrigez [facility] ([id number]) [facility] Branch BASIC METABOLIC PANEL 2020-05-31 14:36:00 Cade Hernadez [facility] (NA, K, CL, CO2, GLUCOSE, Medica l Branch BUN, CREATININE, CA) CBC WITH DIFF 2020-05-31 12:26[facility] PEL[facility] W WO 2020-05-30 20:49:43 Dash Guerrero [facility] BLOOD CULTURE SCREEN 2020-05-30 20:16:00 Dash Guerrero [facility] LACTIC ACID WHOLE BLOOD 2020-05-30 20:15:00 Dash Guerrero [facility] URINALYSIS 2020-05-30 20:14:00 Dash Guerrero [facility] HEPATIC FUNCTION PANEL 2020-05-30 20:13:00 Dash Guerrero [facility] ([id number]) (ALB,T.PRO,BILI [facility] T,BU/BC,ALT,AST,ALK PHOS) BASIC METABOLIC PANEL 2020-05-30 20:13:00 Dash Guerrero [facility] (NA, K, CL, CO2, GLUCOSE, Medica l Branch BUN, CREATININE, CA) CBC WITH DIFF 2020-05-30 20:13:00 Dash Guerrero [facility] PROTHROMBIN TIME / INR 2020-05-30 20:13:[address] [facility] ACTIVATED PARTIAL 2020-05-30 20:13:[address] [facility] COVID-19 (ID NOW RAPID 2020-05-30 20:13:00 Dash Guerrero [facility] TESTING) Medical Branch LAB ONLY COVID 2020-05-30 20:13:00 Dash Guerrero [facility] [place] INTERPRETATION [facility] BLOOD CULTURE SCREEN 2020-05-30 20:09:00 Dash Guerrero [facility] CONSENT/REFUSAL FOR 2020-05-30 19:22:16 Doctor Unassigned, [facility] DIAGNOSIS AND TREATMENT [facility] URINALYSIS 2020-05-27 00:16:[address] [facility] HEPATIC FUNCTION PANEL 2020-05-26 23:25:00 Umm Mares [facility] ([id number]) (ALB,T.PRO,BILI Medical Branch T,BU/BC,ALT,AST,ALK PHOS) BASIC METABOLIC PANEL 2020-05-26 23:25:00 Umm Mares [facility] (NA, K, CL, CO2, GLUCOSE, Medica l Branch BUN, CREATININE, CA) CBC WITH DIFF 2020-05-26 23:25:[address] [facility] CONSENT/REFUSAL FOR 2020-05-26 22:59:39 Doctor Unassdudley, [facility] DIAGNOSIS AND TREATMENT [facility] URINALYSIS 2020-05-13 18:34:00 Dottie Troncoso [facility] CT ABDOMEN PELVIS W 2020-05-13 17:26:18 Dottie Troncoso [facility] CONTRAST [facility] Branch LIPASE 2020-05-13 16:47:00 Dottie Troncoso [facility] HEPATIC FUNCTION PANEL 2020-05-13 16:47:00 Dottie Troncoso [facility] ([id number]) (ALB,T.PRO,BILI Medical Branch T,BU/BC,ALT,AST,ALK PHOS) BASIC METABOLIC PANEL 2020-05-13 16:47:00 Dottie [facility]roncoso [facility] (NA, K, CL, CO2, GLUCOSE, Medica l Branch BUN, CREATININE, CA) CBC WITH DIFF 2020-05-13 16:47:00 Dottie Troncoso [facility] NOTICE OF PRIVACY 2020-05-13 16:27:55 Doctor Unassigned, [facility] CONSENT/REFUSAL FOR 2020-05-13 16:23:10 Doctor Georgia, [facility] DIAGNOSIS AND TREATMENT [facility] [place] EXTERNAL PROVIDER RECORDS 2019-12-10 05:01:00 Doctor Georgia, [facility] US ABDOMEN LIMITED 2019-12-08 18:04:34 Lesley Bee [facility] XR CHEST 1 VW 2019-12-08 17:33:32 Lesley Bee [facility] CT ABDOMEN PELVIS WO 2019-12-08 16:24:35 Lesley Bee [facility] CONTRAST [facility] COMP. METABOLIC PANEL 2019-12-08 16:15:00 Lesley Bee [facility] ([id number]) [facility] [place] CBC WITH DIFF 2019-12-08 16:15:00 Lesley Bee [facility] URINALYSIS 2019-12-08 16:13:00 Lesley Bee [facility] POCT TEST 2019-12-08 16:12:00 Lesley Bee [facility] NOTICE OF PRIVACY 2019-12-08 15:46:34 Doctor Georgia, [facility] CONSENT/REFUSAL FOR 2019-12-08 15:46:19 Doctor Georgia, [facility] DIAGNOSIS AND TREATMENT [facility] [place] POCT URINALYSIS AUTO 2019-12-08 15:09:00 Abhijit Galvin [facility] PHYSICIAN CERTIFICATION 2019-09-29 05:01:00 Doctor Georgia U [facility] STATEMENT [facility] AGREEMENTS AUTHORIZATIONS 2019-03-28 06:01:00 Doctor Georgia, [facility] AND IRREVOCABLE [facility] ASSIGNMENTS (FORM 2000) Encounters Start End Encounter Admission Attending Care Care Encounter Source Date/Time Date/Time Type Type Clinicians Facility Department ID 2021-03-09 [facility] [id number] 13:01[id number] 2021-03-09 Outpatient Hernandez, STLMLC [facility] [id number] 13:01:30 [facility] 69678 Beth - Osvaldo l Outpati ent Clinics 2020-12-12 Emergency [facility] [id number] Univers 22:28:34 ity of [facility] 2020-12-12 Emergency [facility] [id number] Univers 21:17:57 ity of [facility] 2020-12-12 Emergency [facility] [id number] Univers 20:44:10 ity of [facility] 2020-12-12 Emergency [facility] [id number] Univers 19:18:03 ity of [facility] 2020-12-12 Emergency [facility] [id number] Univers 13:38:38 ity of [facility] 2020-12-12 Emergency [facility] [id number] Univers 12:59:09 ity of [facility] 2020-12-12 Emergency [facility] [id number] Univers 10:04:40 ity of [facility] 2020-12-11 Emergency [facility] [id number] Univers 01:01:21 ity of [facility] 2021-03-08 2021-03-08 [facility] 1.2.840.114 [id number] Univers 00:00:00 00:00:00 Johnson VELASCO [id number] [id number] [phone] Me dical NAL 092 Branch [facility] 2020-12-23 2020-12-23 Outpatient R [facility] [id number] Univers 00:00:00 00:00:00 ity of [facility] 2020-12-14 2020-12-14 Transition FILEMON Redman 1.2.840.114 [id number] Univers 00:00:00 00:00:00 of Care Josselin LEWIS [id number] i ty [place] [phone] [place] [address] Branch 2020-12-05 2020-12-12 Inpatient X [facility] [id number] Univers 13:25:00 15:45:00 AD ity of [facility] 2020-12-05 2020-12-12 [facility] Lisandra Eagle [facility] 1.2.840. 114 [id number] Univers 13:25:00 15:45:00 Encounter Sandrita Ad KRISTA [id number] it[place] of [place] [phone] [place] [address] Branch 2020-11-01 2020-11-01 Refsherron Lavon [facility] 1.2.840.114 [id number] Univers 00:00:00 00:00:00 [facility] [id number] i ty of [place] [id number] T emmysudha Camilo [place] [phone] [place] [id number] Branch Office Building 2020-10-12 2020-10-12 Refsherron Fisher [facility] 1.2.840.114 [id number] Univers 00:00:00 00:00:00 Johnson Velasco [id number] it[place] [phone] Vt dical nal 092 Branch Building 2020-10-07 2020-10-07 Family Nurse Practitioner Ny Hutton Lab Main [facility] 1.2.8 40.114 [id number] Univers 10:29:15 10:44:15 Visit Anish Carrera [id number] it[place] [phone] Vt dical nal 353 Branch Building 2020-10-07 2020-10-07 Outpatient R [facility] [id number] Univers 10:30:00 10:30:00 [id number] ity of [facility] 2020-10-07 2020-10-07 Outpatient R DEBI [facility] [id number] Univers 10:30:00 10:30:00 ANISH mccall of [facility] 2020-09-15 2020-09-15 Outpatient R [facility] [id number] Univers 10:00:00 10:00:00 [id number] ity of [facility] 2020-09-10 2020-09-10 Refill Lavon [facility] 1.2.840.114 [id number] Univers 00:00:00 00:00:00 Michael Eaton 350.1.13.10 i ty of [place] 4.2.7.2.686 T roxy Baez [phone] [address] Office Building 2020-09-09 2020-09-09 Orders Doctor CIPRIANO 1.2.840.114 [id number] Univers 00:00:00 00:00:00 Only Unassigned, KATIE [id number] ity of [place] [facility] 4.2.7.2.686 Bald[place] as [phone] [address] 2020-09-06 2020-09-06 Telephone CIPRIANO Machado 1.2.511.605 [id number] Univers 00:00:00 00:00:00 Emperatrizbharath WILSON 350.1.13.10 i ty of [facility] 4.2.7.2.686 [place] as [phone] [address] 2020-08-13 2020-08-13 Refill Lavon [facility] 1.2.840.114 [id number] Univers 00:00:00 00:00:00 Michael Eaton 350.1.13.10 i ty of [place] 4.2.7.2.686 T roxy Baez [phone] [address] Office Building 2020-08-09 2020-08-09 Outpatient R [facility] [id number] Univers 12:00:00 12:00:00 [id number] ity [facility] 2020-08-09 2020-08-09 Outpatient R DEBI [facility] [id number] Univers 12:00:00 12:00:00 ANISH mccall [facility] 2020-08-09 2020-08-09 Family Nurse Practitioner Anni, Ny Lab Main [facility] 1.2.8 40.114 [id number] Univers 11:42:15 11:57:15 Visit Anish Carrera 350.1.13.10 it[place] [phone] Vt dical nal 353 Branch Building 2020-08-09 2020-08-09 Orders Doctor CIPRIANO 1.2.840.114 [id number] Univers 00:00:00 00:00:00 Only Unassigned, KATIE 350.1.13.10 ity of [place] [facility] 4.2.7.2.686 [place] as [phone] [facility] 009 Branch 2020-07-13 2020-07-14 Emergency Aufderheide, Shi Melvin TRAUMA 1.2.840.114 [id number] Univers 15:14:00 19:27:00 Christina Roque PATERSON [id number] [place] [id number] [facility] 014 Branch 2020-07-13 2020-07-13 Office Castillo [facility] 1.2.840.114 [id number] Univers 09:44:58 11:19:02 Visit Johnson Velasco 350.1.13.10 it[place] of [place] [phone] Vt dical nal 092 Branch [facility] 2020-07-13 2020-07-13 Outpatient JOHNSON FISHER [facility] [id number] Univers 09:40:00 09:40:00 JOHNSON FISHER [id number] [facility] 2020-07-13 2020-07-13 Outpatient JOHNSON OSPINA [facility] [id number] Univers 09:40:00 09:40:00 [facility] 2020-07-13 2020-07-13 Letter CIPRIANO Hernandez 1.2.840.114 [id number] Univers 00:00:00 00:00:00 (Out) Fercho WILSON 350.1.13.10 ity of [facility] 4.2.7.2.686 [place] [phone] [facility] 043 Branch 2020-07-08 2020-07-08 Orders Doctor COTA 1.2.840.114 [id number] Univers 00:00:00 00:00:00 Only Unassigned, KATIE 350.1.13.10 ity of [facility] 4.2.7.2.686 [place] [phone] [facility] 009 [place] 2020-07-07 2020-07-07 Orders Doctor CIPRIANO 1.2.840.114 [id number] Univers 00:00:00 00:00:00 Only Unassigned, KATIE 350.1.13.10 ity of [facility] 4.2.7.2.686 [place] [phone] [facility] 009 [place] 2020-07-07 2020-07-07 Tele[facility] 1.2.103.549 [id number] Univers 00:00:00 00:00:00 Angy PRIMARY 350.1.13.10 it y of [facility] [place]2.7.2.[place] [phone] [facility] 086 [place] 2020-07-06 2020-07-06 Emergency [facility] 1.2.376.429 [id number] Univers 18:48:00 23:59:00 Lisandra Velasco 350.1.13.10 ity of [place] [phone] [facility] 084 [place] 2020-07-04 2020-07-04 [facility] 1.2.840.114 [id number] Univers 12:16:00 18:32:00 Lety Velasco 350.1.13.10 ity of [place] [phone] [facility] 084 [place] 2020-06-26 2020-06-28 Emergency RubySabrina garcia 1.2.840 .114 [id number] Univers 15:08:00 18:15:00 Caio Hernandez 350.1.13.10 ity of [facility] 4.2.7.2.686 [place] [phone] [facility] 098 [place] 2020-06-28 2020-06-28 Telephone [facility] 1.2.840.114 [id number] Univers 00:00:00 00:00:00 Johnson Velasco 350.1.13.10 ity of [place] [facility] [phone] Vt dical [facility] 2020-06-22 2020-06-22 Outpatient [facility] [id number] [facility] 00:00:00 00:00:00 [facility] 2020-05-30 2020-06-02 Emergency Dash Guerrero [facility] 1.2.840. 114 [id number] Univers 14:32:00 11:50:00 Ad Remy 350.1.13.10 ity of Cade Hernadez 4.2.7.2.686 [facility] [phone] [address] 2020-05-31 2020-05-31 Outpatient [facility] [id number] Univers 09:45:00 09:45:00 [facility] [id number] ity [facility] 2020-05-31 2020-05-31 [facility] [id number] [facility] 09:45:00 09:45:00 [facility] ity of [facility] 2020-05-26 2020-05-26 Emergency [facility] [id number] Univers 18:10:00 21:41:00 Umm Velasco 350.1.13.10 ity of [place] 4.2.7.2.686 [facility] [place] [phone] [facility] 084 [place] 2020-05-26 2020-05-26 Orders Doctor CIPRIANO 1.2.840.114 [id number] Univers 00:00:00 00:00:00 Only Unassigned, KATIE 350.1.13.10 ity of [place] [facility] 4.2.7.2.686 [place] [phone] [facility] 009 Branch 2020-05-13 2020-05-13 Emergency [facility] 1.2.840.114 [id number] Univers 11:30:00 17:34:00 Dottie Velasco 350.1.13.10 ity of [place] [phone] [facility] 084 Branch 2020-05-13 2020-05-13 Urgent Provider, [facility] 1.2.840.114 [id number] Univers 10:10:06 11:10:27 Care Sarah Orantes [facility] 350.1.13.10 ity of [place] 4.2.7.2.686 [place] Professio [phone] [facility] 044 [place] Office Building One 2020-05-13 2020-05-13 Outpatient R [facility] [id number] Univers 11:00:00 11:00:00 [id number] ity [facility] 2020-05-13 2020-05-13 [facility] [id number] Univers 11:00:00 11:00:00 SARAH ity [facility] 2020-05-13 2020-05-13 Orders Doctor COTA 1.2.840.114 [id number] Univers 00:00:00 00:00:00 Only Unassigned, KATIE 350.1.13.[address] [facility] 4.2.7.2.686 [place] [phone] [facility] 009 [place] 2020-04-19 2020-04-19 [facility] Castillo, [facility] 1.2.840.114 [id number] Univers 00:00:00 00:00:00 Johnson Velasco 350.1.13.10 it[place] [phone] Vt dical nal 092 [facility] 2020-04-09 2020-04-09 Refill Castillo, [facility] 1.2.840.114 [id number] Univers 00:00:00 00:00:00 Johnson Velasco 350.1.13.10 it[place] of [place] [phone] Vt dical nal 092 [facility] 2020-03-23 2020-03-23 [facility] 1.2.840.114 [id number] Univers 09:29:15 10:11:33 Visit Johnson Velasco 350.1.13.10 ity of [place] [phone] Vt dical nal 092 [facility] 2020-03-23 2020-03-23 Outpatient JOHNSON OSPINA [facility] [id number] Univers 09:20:00 09:20:00 JOHNSON FISHER [id number] ity [facility] 2020-03-23 2020-03-23 Outpatient Krystal FISHER JOHNSON [facility] [id number] Univers 09:20:00 09:20:00 JOHNSON FISHER ity [facility] 2020-03-15 2020-03-15 Refill [facility] 1.2.840.114 [id number] Univers 00:00:00 00:00:00 Johnson Velasco 350.1.13.10 it[place] of [place] [phone] [facility] 092 [facility] 2019-12-10 2019-12-10 Orders Doctor CIPRIANO 1.2.840.114 [id number] Univers 00:00:00 00:00:00 Only Unassigned, KATIE 350.1.13.10 ity of [place] [facility] 4.2.7.2.686 [place] [phone] [facility] 009 [place] 2019-12-09 2019-12-09 Case [facility], [facility] 1.2.840.114 [id number] Univers 00:00:00 00:00:00 Management Kari Velasco 350.1.13.10 it[place] of [place] [phone] [facility] 204 [facility] 2019-12-08 2019-12-08 Emergency Bee, [facility] [id number] Univers 11:01:00 14:17:00 Lesley Velasco 350.1.13.10 i ty of [place] [phone] [facility] 084 [place] 2019-12-08 2019-12-08 Office Juan M [facility] 1.2.840.114 [id number] Univers 09:53:04 10:44:[address] [facility] Krista 350.1.13.10 i ty of [place] [phone] [facility] 204 [facility] 2019-12-08 2019-12-08 Outpatient R [facility] [id number] Univers 10:15:00 10:15:00 [facility] [id number] ity [facility] 2019-12-08 2019-12-08 Outpatient R [facility] [id number] Univers 10:15:00 10:15:00 [facility] ity [facility] 2019-12-08 2019-12-08 Orders Doctor CIPRIANO 1.2.840.114 [id number] Univers 00:00:00 00:00:00 Only Unassigned, KATIE 350.1.13.10 ity of [facility] 4.2.7.2.686 [place] [phone] [address] 2019-12-06 2019-12-06 [facility] 1.2.840.114 [id number] Univers 00:00:00 00:00:00 Johnson Velasco 350.1.13.10 it[place] [phone] [facility] 092 [facility] 2019-10-17 2019-10-17 [facility] 1.2.840.114 [id number] Univers 00:00:00 00:00:00 Johnson Velasco 350.1.13.10 ity of [place] [phone] [facility] 092 [facility] 2019-09-29 2019-09-29 Orders Doctor CIPRIANO [id number] Univers 00:00:00 00:00:00 Only Unassigned, KATIE [id number] ity of [facility] 4.2.7.2.686 [place] as [phone] [address] 2019-09-23 2019-09-23 [facility] 1.2.840.114 [id number] Univers 00:00:00 00:00:00 Johnson Velasco [id number] [id number] [phone] Vt dicca nal [address] [place] [address] 2019-08-07 2019-08-07 [facility] 1.2.840.114 [id number] Univers 00:00:00 00:00:00 Johnson Velasco 350.1.13.10 [place] [phone] [address] 2019-05-21 2019-05-21 [facility] 1.2.840.114 [id number] Univers 00:00:00 00:00:00 Johnson Velasco 350.1.13.10 [place] [phone] [address] 2019-04-24 2019-04-24 [facility] 1.2.840.114 [id number] Univers 00:00:00 00:00:00 Johnson Velasco 350.1.13.10 [place] [phone] [address] 2019-04-17 2019-04-17 [facility] 1.2.840.114 [id number] Univers 00:00:00 00:00:00 Johnson Velasco 350.1.13.10 [place] [phone] [facility] nal [address] [place] [address] 2019-04-07 2019-04-07 [facility] 1.2.840.114 [id number] Univers 00:00:00 00:00:00 Johnson Velasco 350.1.13.10 [place] [phone] [address] 2019-03-28 2019-03-28 Family Nurse Practitioner 2, Adc Lab [facility] 1.2.840.114 [id number] Univers 11:02:20 11:17:20 Visit Johnson Fisher 350.1.13 .10 it[place] [phone] Vt dical nal 353 [facility] 2019-03-28 2019-03-28 Office Castillo [facility] 1.2.840.114 [id number] Univers 09:56:36 10:59:16 Visit Johnson Velasco 350.1.13.10 it[place] [phone] Vt dical nal 092 [facility] 2019-03-28 2019-03-28 Orders Doctor CIPRIANO 1.2.840.114 [id number] Univers 00:00:00 00:00:00 Only Unassigned, KATIE 350.1.13.10 ity of [place] [facility] 4.2.7.2.686 [place] as [phone] [address] 2018-11-05 2018-11-05 Emergency E [facility] 7500 [facility] 11:03:00 11:03:00 l [facility] 2017-08-24 2017-08-24 Outpatient Trish Phillips 14 [address] [facility] 08:45:00 08:45:00 [facility] 2017-08-01 2017-08-01 Outpatient Trish Phillips 14 [address] [facility] 10:15:00 10:15:00 [facility] Clinics Results Test Description Test Time Test Comments Results Result Comments Source BASIC METABOLIC PANEL (NA, K, CL, CO2, GLUCOSE, BUN, 2020-11 11:05:50 CREATININE, [place]) Test Item Value Reference Range Interpretation Comme nts NA (test code = 3329254482) 133 mmol/L 135-145 L K (test code = 8576507469) 5.0 mmol/L 3.5-5.0 CL (test code = 9291501035) 105 mmol/L 98-108 CO2 TOTAL (test code = 4241006148) 24 mmol/L 23-31 AGAP (test code = 2371749970) 2-16 BUN (test code = 3574243937) 9 mg/dL 7-23 GLUCOSE (test code = 1448531678) 93 mg/dL 70-110 CREATININE (test code = 0.57 mg/dL 0.50-1.04 4087530816) CALCIUM (test code = 0643947707) 9.8 mg/dL 8.6-10.6 eGFR (test code = 9205323091) mL/min/1.73m2 ANTHONY (test code = ANTHONY) Association [...] tests). Lab Interpretation (test code = Abnormal 93922-5) [facility]50 Test Item Value Reference Range Interpretation Comments MAGNESIUM (test code = 4705312327) 2.3 mg/dL 1.7-2.4 Lab Interpretation (test code = Normal 39908-2) [facility] 11:05:30 Test Item Value Reference Range Interpretation Comments PHOSPHORUS (test code = 3693232460) 4.1 mg/dL 2.5-5.0 Lab Interpretation (test code = Normal 53110-4) [facility]MOL[facility], SERUM OR [id number] 17:26:02 Test Item Value Reference Range Interpretation Comments OSMOLALITY (test code = See_Comment [Au tomated message] 7805253490) The system [employer] generated this result transmitted ref erence range: 278 - 30 5 mOsm/kg. The re ference range was not u sed to interpret this result as normal/abnor mal. Lab Interpretation (test Normal code = 69374-9) [facility] Random [id number] 15:46:31 Test Item Value Reference Range Interpretation Comments VANCO RANDOM (test code = 8.9 ug/mL 4590251020) [facility] (NA, K, CL, CO2, GLUCOSE, BUN, CREATININE, CA)2020-12-11 10:02:40 Test Item Value Reference Range Interpretation Comments NA (test code = 135 mmol/L 135-145 3982676700) K (test code = 4.7 mmol/L 3.5-5.0 5006450747) CL (test code = 107 mmol/L 98-108 4321470200) CO2 TOTAL (test code 24 mmol/L 23-31 = 4016881910) AGAP (test code = 2-16 8666985815) BUN (test code = 9 mg/dL 7-23 3472626842) GLUCOSE (test code = 98 mg/dL 70-110 7603912991) CREATININE (test code 0.62 mg/dL 0.50-1.04 = 0842757479) CALCIUM (test code = 9.5 mg/dL 8.6-10.6 0341761813) eGFR (test code = mL/min/1.73m2 1380728311) ANTHONY (test code = ANTHONY) Association of [...] or urine or abnormalities in imaging tests). [facility] WITH [id number] 09:45:31 Test Item Value Reference Range Interpretation Comments WBC (test code = See_Comment [Automated 0590-2) message] The sy stem which generated this result transmitted reference range : 4.30 - 11.10 10*3/?L. The reference range was not used to interpret this result as normal/abnormal . RBC (test code = See_Comment L [Automated 549-8) message] The sy stem which generated this [...] (test code = 55.5 fL 39.0-49.9 H 76383-2) RDW-CV (test code = 15.6 % 12.0-15.5 H 788-0) PLT (test code = See_Comment [Automated 777-3) message] The sy stem which generated this result transmitted reference range : 166 - 358 10*3/ ?L. The reference r miky was not used to interpret this result as normal/abnormal . MPV (test code = 11.5 fL 9.5-12.9 31474-8) NRBC/100 WBC (test See_Comment [Automat ed code = 4836030514) message] The system which generated this result transmitted reference range : 0.0 - 10.0 /100 WBCs. The refer ence range was not u sed to interpret th is result as normal/abnormal . NRBC x10^3 (test code See_Comment [Auto mated = 5757362574) message] The s ystem which generated this result transmitted reference range : 10*3/?L. The reference range was not used to interpret this result as normal/abnormal . GRAN MAT (NEUT) % 44.2 % (test code = 770-8) IMM GRAN % (test code 5.40 % = 2939256752) LYMPH % (test code = 35.6 % 736-9) MONO % (test code = 14.1 % 5905-5) EOS % (test code = 0.3 % 713-8) BASO % (test code = 0.4 % 706-2) GRAN MAT x10^3(ANC) 2.99 10*3/uL 1.88-7.09 (test code = 5317252289) IMM GRAN x10^3 (test 0.37 10*3/uL 0.00-0.06 H code = 0989422392) LYMPH x10^3 (test code 2.42 10*3/uL 1.32-3.29 = 731-0) MONO x10^3 (test code 0.96 10*3/uL 0.33-0.92 H = 742-7) EOS x10^3 (test code = <0.03 0.03-0.39 L 711-2) BASO x10^3 (test code 0.03 10*3/uL 0.01-0.07 = 704-7) Lab Interpretation Abnormal (test code = 63616-4) [facility]2021-10-30 09:37:24 Test Item Value Reference Range Interpretation Comments MAGNESIUM (test code = 6287322101) 2.3 mg/dL 1.7-2.4 Lab Interpretation (test code = Normal 55439-6) [facility]2021-10-30 09:37:04 Test Item Value Reference Range Interpretation Comments PHOSPHORUS (test code = 9212620868) 2.8 mg/dL 2.5-5.0 Lab Interpretation (test code = Normal 66940-7) [facility] [id number] 09:36:44 Test Item Value Reference Range Interpretation Comments URIC ACID (test code = 9319563301) 3.2 mg/dL 2.9-6.0 Lab Interpretation (test code = Normal 65396-9) [facility] Met[facility] (NA, K, CL, CO2, GLUCOSE, BUN, CREATININE, CA)2020-12-10 20:08:36 Test Item Value Reference Range Interpretation Comments NA (test code = 126 mmol/L 135-145 L 1174230327) K (test code = 3.7 mmol/L 3.5-5.0 4965556263) CL (test code = 102 mmol/L 98-108 7271571287) CO2 TOTAL (test code = 21 mmol/L 23-31 L 3044654221) AGAP (test code = 2-16 8039066724) BUN (test code = 9 mg/dL 7-23 5939321374) GLUCOSE (test code = 116 mg/dL 70-110 H 6260985616) CREATININE (test code = 0.72 mg/dL 0.50-1.04 1141561194) CALCIUM (test code = 8.9 mg/dL 8.6-10.6 8346464468) eGFR (test code = mL/min/1.73m2 8426696965) ANTHONY (test code = ANTHONY) Association of [...] tests). Lab Interpretation Abnormal (test code = 36355-9) [facility] [id number] 20:01:33 Test Item Value Reference Range Interpretation Comments Blood Culture-Aerobic No organisms No growth Previo us (test code = 16453-3) isolated prelim inary verified result was Culture [...] Culture-Anaerobic isolated preliminar y (test code = 56978-1) verifi ed result was Culture In Progress [...] CDT Lab Interpretation Normal (test code = 82352-9) [facility] [id number] 20:01:33 Test Item Value Reference Range Interpretation Comments Blood Culture-Aerobic No organisms No growth Previo us (test code = 67224-4) isolated prelim inary verified result was Culture [...] Culture-Anaerobic isolated preliminar y (test code = 25128-5) verifi ed result was Culture In Progress [...] CDT Lab Interpretation Normal (test code = 28713-4) [facility]2021-10-29 19:00:05 Test Item Value Reference Range Interpretation Comments PHOSPHORUS (test code = 0180475917) 2.5 mg/dL 2.5-5.0 Lab Interpretation (test code = Normal 78362-2) [facility] WITH [id number] 18:49:57 Test Item Value Reference Range Interpretation [...] (test code = 52.4 fL 39.0-49.9 H 70841-4) RDW-CV (test code = 15.2 % 12.0-15.5 788-0) PLT (test code = See_Comment L [Automated 777-3) message] The sy stem which generated this result transmitted reference range : 166 - 358 10*3/ ?L. The reference r miky was not used to interpret this result as normal/abnormal . MPV (test code = 10.8 fL 9.5-12.9 23696-8) NRBC/100 WBC (test See_Comment [Automat ed code = 0134569206) message] The system which generated this result transmitted reference range : 0.0 - 10.0 /100 WBCs. The refer ence range was not u sed to interpret th is result as normal/abnormal . NRBC x10^3 (test code See_Comment [Auto mated = 8138377100) message] The s ystem which generated this result transmitted reference range : 10*3/?L. The reference range was not used to interpret this result as normal/abnormal . GRAN MAT (NEUT) % 47.2 % (test code = 770-8) IMM GRAN % (test code 5.80 % = 9465360688) LYMPH % (test code = 29.2 % 736-9) MONO % (test code = 17.1 % 5905-5) EOS % (test code = 0.4 % 713-8) BASO % (test code = 0.3 % 706-2) GRAN MAT x10^3(ANC) 3.14 10*3/uL 1.88-7.09 (test code = 6063562770) IMM GRAN x10^3 (test 0.39 10*3/uL 0.00-0.06 H code = 9188947573) LYMPH x10^3 (test code 1.95 10*3/uL 1.32-3.29 = 731-0) MONO x10^3 (test code 1.14 10*3/uL 0.33-0.92 H = 742-7) EOS x10^3 (test code = 0.03 10*3/uL 0.03-0.39 711-2) BASO x10^3 (test code <0.03 0.01-0.07 = 704-7) POLYCHROMASIA (test 2+ See_Comment [Automa karly code = 81420-9) message] The system which generated this result transmitted reference range : 2+. The referen ce range was not u sed to interpret th is result as normal/abnormal . BANDS (test code = Increased A 3283053475) Lab Interpretation Abnormal (test code = 76965-4) [facility] T[facility] Level - Draw random trough at [id number] 16:37:29 Test Item Value Reference Range Interpretation Comments VANCO TROUGH (test code 19.4 ug/mL 10.0-20.0 = 3485133907) ANTHONY (test code = ANTHONY) Toxic Range: ?>20 ug/mL 15-20 ug/mL is recommended for severe infection or when Vancomycin RAHEEM is greater than or equal to 2. Lab Interpretation (test Normal code = 85662-5) [facility]2021-10-29 11:49:21 Test Item Value Reference Range Interpretation Comments MAGNESIUM (test code = 9023323030) 2.1 mg/dL 1.7-2.4 Lab Interpretation (test code = Normal 26984-8) [facility] MET[facility]OLIC PANEL (NA, K, CL, CO2, GLUCOSE, BUN, CREATININE, CA)2020-12-10 11:49:05 Test Item Value Reference Range Interpretation Comments NA (test code = 129 mmol/L 135-145 L 4018562952) K (test code = 3.0 mmol/L 3.5-5.0 L 7932145415) CL (test code = 103 mmol/L 98-108 6642335843) CO2 TOTAL (test code = 25 mmol/L 23-31 6741168761) AGAP (test code = 2-16 L 6342871645) BUN (test code = 10 mg/dL 7-23 9794829895) GLUCOSE (test code = 123 mg/dL 70-110 H 4497851233) CREATININE (test code = 0.84 mg/dL 0.50-1.04 5174402873) CALCIUM (test code = 8.9 mg/dL 8.6-10.6 2519826009) eGFR (test code = mL/min/1.73m2 7065705915) ANTHONY (test code = ANTHONY) Association of [...] tests). Lab Interpretation Abnormal (test code = 44883-0) [facility]2021-10-29 11:48:59 Test Item Value Reference Range Interpretation Comments PHOSPHORUS (test code = 4226315258) 1.0 mg/dL 2.5-5.0 L Lab Interpretation (test code = Abnormal 88939-4) [facility] Metabolic Panel (NA, K, CL, CO2, GLUCOSE, BUN, CREATININE, CA)2020-12-10 02:21:51 Test Item Value Reference Range Interpretation Comments NA (test code = 130 mmol/L 135-145 L 9374424899) K (test code = 3.6 mmol/L 3.5-5.0 1922364615) CL (test code = 106 mmol/L 98-108 4623310360) CO2 TOTAL (test code = 21 mmol/L 23-31 L 8929417276) AGAP (test code = 2-16 4846371383) BUN (test code = 9 mg/dL 7-23 3404003268) GLUCOSE (test code = 142 mg/dL 70-110 H 4837741947) CREATININE (test code = 0.59 mg/dL 0.50-1.04 3973589757) CALCIUM (test code = 8.4 mg/dL 8.6-10.6 L 1534473055) eGFR (test code = mL/min/1.73m2 1450952699) ANTHONY (test code = ANTHONY) Association of [...] tests). Lab Interpretation Abnormal (test code = 27956-8) [facility] T[facility] Level - Draw no more than 60 minutes before the 1330 dose.2020-12-09 20:29:37 Test Item Value Reference Range Interpretation Comments VANCO TROUGH (test code 20.9 ug/mL 10.0-20.0 H = 6162985566) ANTHONY (test code = ANTHONY) Toxic Range: ?>20 ug/mL 15-20 ug/mL is recommended for severe infection or when Vancomycin RAHEEM is greater than or equal to 2. Lab Interpretation (test Abnormal code = 64688-9) [facility] (NA, K, CL, CO2, GLUCOSE, BUN, CREATININE, CA)2020-12-09 11:48:35 Test Item Value Reference Range Interpretation Comments NA (test code = 129 mmol/L 135-145 L 4175912038) K (test code = 2.8 mmol/L 3.5-5.0 LL 1906092600) CL (test code = 104 mmol/L 98-108 7702583613) CO2 TOTAL (test code = 20 mmol/L 23-31 L 9861947667) AGAP (test code = 2-16 9396390776) BUN (test code = 10 mg/dL 7-23 5410358831) GLUCOSE (test code = 120 mg/dL 70-110 H 8090084878) CREATININE (test code = 0.68 mg/dL 0.50-1.04 6849236971) CALCIUM (test code = 7.9 mg/dL 8.6-10.6 L 7912595068) eGFR (test code = mL/min/1.73m2 8947181016) ANTHONY (test code = ANTHONY) Association of [...] tests). Lab Interpretation Abnormal (test code = 64407-0) [facility]2021-10-28 11:47:08 Test Item Value Reference Range Interpretation Comments MAGNESIUM (test code = 3485693550) 2.2 mg/dL 1.7-2.4 Lab Interpretation (test code = Normal 75099-2) [facility]2021-10-28 11:46:48 Test Item Value Reference Range Interpretation Comments PHOSPHORUS (test code = 1712514490) 2.4 mg/dL 2.5-5.0 L Lab Interpretation (test code = Abnormal 01978-4) [facility] (NA, K, CL, CO2, GLUCOSE, BUN, CREATININE, CA)2020-12-08 12:06:15 Test Item Value Reference Range Interpretation Comments NA (test code = 130 mmol/L 135-145 L 1281204113) K (test code = 2.8 mmol/L 3.5-5.0 LL 9411735531) CL (test code = 104 mmol/L 98-108 6366023694) CO2 TOTAL (test code = 19 mmol/L 23-31 L 2584298691) AGAP (test code = 2-16 5233030262) BUN (test code = 9 mg/dL 7-23 1633985537) GLUCOSE (test code = 114 mg/dL 70-110 H 3445734241) CREATININE (test code = 0.72 mg/dL 0.50-1.04 7289604834) CALCIUM (test code = 7.9 mg/dL 8.6-10.6 L 5027781069) eGFR (test code = mL/min/1.73m2 8252490193) ANTHONY (test code = ANTHONY) Association of [...] tests). Lab Interpretation Abnormal (test code = 55886-7) [facility]2021-10-27 11:58:12 Test Item Value Reference Range Interpretation Comments MAGNESIUM (test code = 9367650195) 1.9 mg/dL 1.7-2.4 Lab Interpretation (test code = Normal 90238-7) [facility]2021-10-27 11:57:52 Test Item Value Reference Range Interpretation Comments PHOSPHORUS (test code = 7416790750) 2.7 mg/dL 2.5-5.0 Lab Interpretation (test code = Normal 10984-6) [facility] Trough Level - Draw no more than 60 minutes before the 0130 dose.2020-12-08 07:49:28 Test Item Value Reference Range Interpretation Comments VANCO TROUGH (test code 18.4 ug/mL 10.0-20.0 = 5814257912) ANTHONY (test code = ANTHONY) Toxic Range: ?>20 ug/mL 15-20 ug/mL is recommended for severe infection or when Vancomycin RAHEEM is greater than or equal to 2. Lab Interpretation (test Normal code = 24994-7) [facility] WITH [id number] 13:32:28 Test Item Value Reference Range Interpretation Comments WBC (test code = See_Comment [Automated 6690-2) message] The sy stem which generated this result transmitted reference range : 4.30 - 11.10 10*3/?L. The reference range was not used to interpret this result as normal/abnormal . RBC (test code = See_Comment L [Automated 9-8) message] The sy stem which generated this [...] (test code = 50.9 fL 39.0-49.9 H 29312-8) RDW-CV (test code = 15.0 % 12.0-15.5 788-0) PLT (test code = See_Comment [Automated 777-3) message] The sy stem which generated this result transmitted reference range : 166 - 358 10*3/ ?L. The reference r miky was not used to interpret this result as normal/abnormal . MPV (test code = 11.3 fL 9.5-12.9 08461-3) NRBC/100 WBC (test See_Comment [Automat ed code = 7341436263) message] The system which generated this result transmitted reference range : 0.0 - 10.0 /100 WBCs. The refer ence range was not u sed to interpret th is result as normal/abnormal . NRBC x10^3 (test code See_Comment [Auto mated = 3778508368) message] The s ystem which generated this result transmitted reference range : 10*3/?L. The reference range was not used to interpret this result as normal/abnormal . GRAN MAT (NEUT) % 57.6 % (test code = 770-8) IMM GRAN % (test code 4.60 % = 5451150124) LYMPH % (test code = 27.4 % 736-9) MONO % (test code = 9.9 % 5905-5) EOS % (test code = 0.2 % 713-8) BASO % (test code = 0.3 % 706-2) GRAN MAT x10^3(ANC) 3.79 10*3/uL 1.88-7.09 (test code = 4699974588) IMM GRAN x10^3 (test 0.30 10*3/uL 0.00-0.06 H code = 0767432661) LYMPH x10^3 (test code 1.80 10*3/uL 1.32-3.29 = 731-0) MONO x10^3 (test code 0.65 10*3/uL 0.33-0.92 = 742-7) EOS x10^3 (test code = <0.03 0.03-0.39 L 711-2) BASO x10^3 (test code <0.03 0.01-0.07 = 704-7) SCHISTOCYTES (test 1+ A code = 800-3) BANDS (test code = Increased A 8542151398) Lab Interpretation Abnormal (test code = 83604-5) [facility]2021-10-26 11:15:12 Test Item Value Reference Range Interpretation Comments MAGNESIUM (test code = 3050255704) 2.1 mg/dL 1.7-2.4 Lab Interpretation (test code = Normal 01348-3) [facility] (NA, K, CL, CO2, GLUCOSE, BUN, CREATININE, CA)2020-12-07 11:15:11 Test Item Value Reference Range Interpretation Comments NA (test code = 133 mmol/L 135-145 L 6875413674) K (test code = 3.2 mmol/L 3.5-5.0 L 9633083965) CL (test code = 106 mmol/L 98-108 2784000125) CO2 TOTAL (test code = 18 mmol/L 23-31 L 5227525874) AGAP (test code = 2-16 5175700574) BUN (test code = 9 mg/dL 7-23 1688852562) GLUCOSE (test code = 106 mg/dL 70-110 3171164785) CREATININE (test code = 0.64 mg/dL 0.50-1.04 8109792606) CALCIUM (test code = 8.2 mg/dL 8.6-10.6 L 3389656847) eGFR (test code = mL/min/1.73m2 5451922993) ANTHONY (test code = ANTHONY) Association of [...] tests). Lab Interpretation Abnormal (test code = 47332-0) [facility] METABOLIC PANEL (NA, K, CL, CO2, GLUCOSE, BUN, CREATININE, CA)2020-12-07 03:01:05 Test Item Value Reference Range Interpretation Comments NA (test code = 130 mmol/L 135-145 L 0262784636) K (test code = 3.4 mmol/L 3.5-5.0 L 0298616604) CL (test code = 105 mmol/L 98-108 6878862788) CO2 TOTAL (test code = 20 mmol/L 23-31 L 3614824470) AGAP (test code = 2-16 5141638332) BUN (test code = 10 mg/dL 7-23 3971333902) GLUCOSE (test code = 117 mg/dL 70-110 H 6441800166) CREATININE (test code = 0.69 mg/dL 0.50-1.04 6771739352) CALCIUM (test code = 7.9 mg/dL 8.6-10.6 L 9851675540) eGFR (test code = mL/min/1.73m2 0990405309) ANTHONY (test code = ANTHONY) Association of [...] tests). Lab Interpretation Abnormal (test code = 86731-7) [facility] Metabolic Panel (NA, K, CL, CO2, GLUCOSE, BUN, CREATININE, CA)2020-12-06 17:09:25 Test Item Value Reference Range Interpretation Comments NA (test code = 126 mmol/L 135-145 L 9641397253) K (test code = 2.9 mmol/L 3.5-5.0 LL 6606025184) CL (test code = 104 mmol/L 98-108 8456649492) CO2 TOTAL (test code = 13 mmol/L 23-31 L 3071602123) AGAP (test code = 2-16 8243233309) BUN (test code = 11 mg/dL 7-23 4067479736) GLUCOSE (test code = 147 mg/dL 70-110 H 1168094157) CREATININE (test code = 0.80 mg/dL 0.50-1.04 4294140124) CALCIUM (test code = 7.9 mg/dL 8.6-10.6 L 0796439315) eGFR (test code = mL/min/1.73m2 7785166873) ANTHONY (test code = ANTHONY) Association of [...] tests). Lab Interpretation Abnormal (test code = 31732-4) [facility]kin[facility] [id number] 17:05:09 Test Item Value Reference Range Interpretation Comments MAGNESIUM (test code = 3053902482) 2.3 mg/dL 1.7-2.4 Lab Interpretation (test code = Normal 20260-3) [facility] with [id number] 16:52:56 Test Item Value Reference Range Interpretation Comments WBC (test code = See_Comment [Automated 8081-2) message] The sy stem which generated this result transmitted reference range : 4.30 - 11.10 10*3/?L. The reference range was not used to interpret this result as normal/abnormal . RBC (test code = See_Comment L [Automated 248-0) message] The sy stem which generated this [...] (test code = 50.9 fL 39.0-49.9 H 73511-5) RDW-CV (test code = 15.0 % 12.0-15.5 788-0) PLT (test code = See_Comment [Automated 777-3) message] The sy stem which generated this result transmitted reference range : 166 - 358 10*3/ ?L. The reference r miky was not used to interpret this result as normal/abnormal . MPV (test code = 11.4 fL 9.5-12.9 91747-0) NRBC/100 WBC (test See_Comment [Automat ed code = 8365646534) message] The system which generated this result transmitted reference range : 0.0 - 10.0 /100 WBCs. The refer ence range was not u sed to interpret th is result as normal/abnormal . NRBC x10^3 (test code <0.01 See_Comment [Auto mated = 9403368935) message] The s ystem which generated this result transmitted reference range : 10*3/?L. The reference range was not used to interpret this result as normal/abnormal . GRAN MAT (NEUT) % 53.9 % (test code = 770-8) IMM GRAN % (test code 3.10 % = [id number]) LYMPH % (test code = 30.8 % 736-9) MONO % (test code = 11.3 % 5905-5) EOS % (test code = 0.3 % 713-8) BASO % (test code = 0.6 % 706-2) GRAN MAT x10^3(ANC) 3.48 10*3/uL 1.88-7.09 (test code = [id number]) IMM GRAN x10^3 (test 0.20 10*3/uL 0.00-0.06 H code = [id number]) LYMPH x10^3 (test code 1.99 10*3/uL 1.32-3.29 = 731-0) MONO x10^3 (test code 0.73 10*3/uL 0.33-0.92 = 742-7) EOS x10^3 (test code = <0.03 0.03-0.39 L 711-2) BASO x10^3 (test code 0.04 10*3/uL 0.01-0.07 = 704-7) BANDS (test code = Increased A [id number]) Lab Interpretation Abnormal (test code = 84599-2) [facility]48 Test Item Value Reference Range Interpretation Comments MAGNESIUM (test code = [id number]) 1.4 mg/dL 1.7-2.4 L Lab Interpretation (test code = Abnormal 27528-6) [facility] (NA, K, CL, CO2, GLUCOSE, BUN, CREATININE, [place])2020-12-06 00:00:55 Test Item Value Reference Range Interpretation Comments NA (test code = 135 mmol/L 135-145 1692311465) K (test code = 2.3 mmol/L 3.5-5.0 LL 9757758792) CL (test code = 116 mmol/L 98-108 H 2122614622) CO2 TOTAL (test code = 14 mmol/L 23-31 L 0787564284) AGAP (test code = 2-16 3858575556) BUN (test code = 16 mg/dL 7-23 7794328939) GLUCOSE (test code = 98 mg/dL 70-110 3900047394) CREATININE (test code = 0.85 mg/dL 0.50-1.04 4797111149) CALCIUM (test code = 5.7 mg/dL 8.6-10.6 LL 4133143031) eGFR (test code = mL/min/1.73m2 2743200673) ANTHONY (test code = ANTHONY) Association of [...] tests). Lab Interpretation Abnormal (test code = 90777-4) [facility] STIMULATING [id number] 20:54:58 Test Item Value Reference Range Interpretation Comments TSH (test code = See_Comment [Automated message] 2443520895) The system [employer] generated this result transmitted ref erence range: 0.45 - 4 .70 mIU/L. The refe rence range was not u sed to interpret this result as normal/abnor mal. Lab Interpretation (test Normal code = 25714-7) [facility]IPASE2021-10-24 20:23:21 Test Item Value Reference Range Interpretation Comments LIPASE (test code = 1884201846) 130 U/L 0-220 Lab Interpretation (test code = Normal 65208-0) [facility]CB WITH [id number] 19:46:50 Test Item Value Reference Range Interpretation Comments WBC (test code = See_Comment [Automated 6690-2) message] The system which generated this result transmitted reference range : 4.30 - 11.10 10*3/?L. The reference range was not used to interpret this result as normal/abnormal . RBC (test code = See_Comment L [Automated 789-8) message] The system which generated this result [...] RDW-SD (test code = 49.2 fL 39.0-49.9 38160-0) RDW-CV (test code = 14.8 % 12.0-15.5 788-0) PLT (test code = See_Comment [Automated 777-3) message] The system which generated this result transmitted reference range : 166 - 358 10*3/?L. The reference range was not used to interpret this result as normal/abnormal . MPV (test code = 11.9 fL 9.5-12.9 21908-6) NRBC/100 WBC (test See_Comment [Automat ed code = 4450541757) message] The system which generated this result transmitted reference range : 0.0 - 10.0 /100 WBCs. The reference range was not used to interpret this result as normal/abnormal . NRBC x10^3 (test code See_Comment [Auto mated = 9009232969) message] The system which generated this result transmitted reference range : 10*3/?L. The reference range was not used to interpret this result as normal/abnormal . GRAN MAT (NEUT) % 45.3 % (test code = 770-8) IMM GRAN % (test code 1.60 % = 4646167604) LYMPH % (test code = 41.5 % 736-9) MONO % (test code = 10.4 % 5905-5) EOS % (test code = 0.6 % 713-8) BASO % (test code = 0.6 % 706-2) GRAN MAT x10^3(ANC) 3.18 10*3/uL 1.88-7.09 (test code = 4977401492) IMM GRAN x10^3 (test 0.11 10*3/uL 0.00-0.06 H code = 2815463252) LYMPH x10^3 (test 2.91 10*3/uL 1.32-3.29 code [...] BANDS (test code = MARKED INCREASED A 2623645255) LG GRAN LYMPHS (test Rare Rare code = 5888419495) REACT LYMPHS (test Rare code = 8815209262) TOXIC CHANGES (test Present A code = 803-7) Lab Interpretation Abnormal (test code = 81777-3) [facility]PO[facility] GLUCOSE(AGE >30DAYS)2020-12-05 19:44:00 Test Item Value Reference Range Interpretation Comments POCT Glu (age>30days) (test code = 154 mg/dL 70-110 A 3342) Lab Interpretation (test code = Abnormal 76856-7) [facility]kinTroponin [id number] 19:21:17 Test Item Value Reference Interpretation Comments Range TROPONIN I (test 0.008 ng/mL See_Comment [Automated code = 4354485180) message] The system which generated this result [...] biotin. Lab Interpretation Normal (test code = 69845-8) [facility]. METABOLIC PANEL (60205)2020-12-05 19:10:58 Test Item Value Reference Range Interpretation Comments NA (test code = 122 mmol/L 135-145 L 6328480698) K (test code = 3.2 mmol/L 3.5-5.0 L 1121715618) CL (test code = 97 mmol/L 98-108 L 8823616655) CO2 TOTAL (test code = 16 mmol/L 23-31 L 7594477354) AGAP (test code = 2-16 6488194046) BUN (test code = 21 mg/dL 7-23 2256391260) GLUCOSE (test code = 154 mg/dL 70-110 H 5366665168) CREATININE (test code = 1.40 mg/dL 0.50-1.04 H 8317749146) TOTAL BILI (test code = 0.6 mg/dL 0.1-1.9 1847629395) CALCIUM (test code = 8.6 mg/dL 8.6-10.6 6000359180) T PROTEIN (test code = 5.7 g/dL 6.3-8.2 L 4695624468) ALBUMIN (test code = 3.0 g/dL 3.5-5.0 L 5985310878) ALK PHOS (test code = 187 U/L 34-122 H 8712281134) ALTv (test code = 43 U/L 5-35 H 1742-6) AST(SGOT) (test code = 66 U/L 13-40 H 9465333884) eGFR (test code = mL/min/1.73m2 9973290938) ANTHONY (test code = ANTHONY) Association of [...] tests). Lab Interpretation Abnormal (test code = 98966-8) [facility]kinMAGNESIUM2021-10-24 19:10:58 Test Item Value Reference Range Interpretation Comments MAGNESIUM (test code = 1883411917) 1.8 mg/dL 1.7-2.4 Lab Interpretation (test code = Normal 93759-9) [facility]POCT [id number] 18:53:00 Test Item Value Reference Range Interpretation Comments POCT PREG (test code = 1605) negative POCT PREG LOT # (test code = 3575) [id number] POCT PREG TEST DATE (test 2022-02-11 code = 3576) Lab Interpretation (test code = Normal 67329-8) [facility]ANTI-SSA(RO)2020-08-10 17:06:47 Test Item Value Reference Range Interpretation Comments ANTI-SSA(RO) (test code = Negative Negative 3518256766) ANTHONY (test code = ANTHONY) Positive - Antibody detected.Negative - No antibody detected. Lab Interpretation (test Normal code = 26106-5) [facility]ANTI-SSB(LA)2020-08-10 17:06:47 Test Item Value Reference Range Interpretation Comments Anti-SSB(LA) (test code = Negative Negative 9371072046) ANTHONY (test code = ANTHONY) Positive - Antibody detected.Negative - No antibody detected. Lab Interpretation (test Normal code = 99925-8) [facility]kinRHEUMATOID [id number] 14:42:16 Test Item Value Reference Range Interpretation Comments RF (test code = <20 See_Comment [Automated message] 9555603778) The system [employer] generated this result transmitted ref erence range: <20 IU/m L. The reference range was not used to int erpret this result as normal/abnormal . Lab Interpretation (test Normal code = 95862-9) [facility]-REACTIVE [id number] 14:41:04 Test Item Value Reference Range Interpretation Comments CRP (test code = 6510952415) 0.3 mg/dL <0.8 Lab Interpretation (test code = Normal 64000-1) [facility] OR LEXX ONLY - [id number] 09:50:30 Test Item Value Reference Range Interpretation Comments RPR (Qualitative) (test code = Nonreactive Nonreactive 02233-7) Lab Interpretation (test code = Normal 17235-5) [facility]HIV 1/2 AG-AB WITH [id number] 20:09:42 Test Item Value Reference Range Interpretation Comments HIV Negative Negative Semi-quantitative (test code = 99706-1) ANTHONY (test code = Non-reactive for HIV-1 ANTHONY) antigen and HIV-1/HIV-2 antibodies. ?No laboratory evidence of HIV infection. ?Repeat in 2-4 weeks if acute HIV infection is suspected. [facility]kinSEDIMENTATION [id number] 19:49:09 Test Item Value Reference Range Interpretation Comments ESR (test code = See_Comment H [Automated message] 1924416802) The system [employer] generated this result transmitted ref erence range: 0 - 20 m m/HR. The reference r miky was not used to interpret this result as normal/abnor mal. Lab Interpretation (test Abnormal code = 78278-5) [facility]. METABOLIC PANEL (31373)2020-08-09 19:29:16 Test Item Value Reference Range Interpretation Comments NA (test code = 133 mmol/L 135-145 L 8638514296) K (test code = 4.4 mmol/L 3.5-5.0 8207247652) CL (test code = 97 mmol/L 98-108 L 1930644694) CO2 TOTAL (test code = 24 mmol/L 23-31 4249620006) AGAP (test code = 2-16 1752401624) BUN (test code = 21 mg/dL 7-23 0528903390) GLUCOSE (test code = 154 mg/dL 70-110 H 6765310705) CREATININE (test code = 0.86 mg/dL 0.50-1.04 1267129954) TOTAL BILI (test code = 0.5 mg/dL 0.1-1.7 6380259394) CALCIUM (test code = 10.0 mg/dL 8.6-10.6 8889216644) T PROTEIN (test code = 8.0 g/dL 6.3-8.2 5146559298) ALBUMIN (test code = 5.1 g/dL 3.5-5.0 H 9203530432) ALK PHOS (test code = 85 U/L 34-122 1689074810) ALTv (test code = 36 U/L 5-35 H 1742-6) AST(SGOT) (test code = 24 U/L 13-40 0759745001) eGFR (test code = mL/min/1.73m2 7140547719) ANTHONY (test code = ANTHONY) Association of [...] tests). Lab Interpretation Abnormal (test code = 43991-2) [facility]kinURINALYSIS2021-06-28 18:21:29 Test Item Value Reference Range Interpretation Comments APPEARANCE (test code = Clear Clear 5487347645) COLOR (test code = Yellow Yellow 0573601193) PH (test code = 4.8-8.0 1817550565) SP GRAVITY (test code = 1.003-1.030 9341200021) GLU U QUAL (test code = Normal Normal 0625054793) BLOOD (test code = Negative Negative 8507282738) KETONES (test code = Negative Negative 8877412654) PROTEIN (test code = Negative Negative 2887-8) UROBILIN (test code = Normal Normal 3849911291) BILIRUBIN (test code = Negative Negative 9408671666) NITRITE (test code = Negative Negative 2394791673) LEUK MURRAY (test code = Negative Negative 6803934582) RBC/HPF (test code = <1 See_Comment [Autom ated message] 2312193949) The system [employer] generated this result transmitted ref erence range: 0 - 3 HP F. The reference range was not used to int erpret this result as normal/abnormal . WBC/HPF (test code = See_Comment [Autom ated message] 3439710693) The system [employer] generated this result transmitted ref erence range: 0 - 5 HP F. The reference range was not used to int erpret this result as normal/abnormal . BACTERIA (test code = Negative Negative 7096677542) MUCOUS (test code = Slight Negative LPF A 6650373574) SQ EPITH (test code = <1 HPF 4862132198) Lab Interpretation (test Abnormal code = 23934-9) [facility]URINALYSIS2021-06-28 18:21:29 Test Item Value Reference Range Interpretation Comments APPEARANCE (test code = Clear Clear 8464381009) COLOR (test code = Yellow Yellow 3700091771) PH (test code = 4.8-8.0 6260302572) SP GRAVITY (test code = 1.003-1.030 9421262859) GLU U QUAL (test code = Normal Normal 2008727103) BLOOD (test code = Negative Negative 3761887472) KETONES (test code = Negative Negative 5141336591) PROTEIN (test code = Negative Negative 2887-8) UROBILIN (test code = Normal Normal 4035722122) BILIRUBIN (test code = Negative Negative 1358919697) NITRITE (test code = Negative Negative 4107389466) LEUK MURRAY (test code = Negative Negative 4313860242) RBC/HPF (test code = <1 See_Comment [Autom ated message] 9694811687) The system [employer] generated this result transmitted ref erence range: 0 - 3 HP F. The reference range was not used to int erpret this result as normal/abnormal . WBC/HPF (test code = See_Comment [Autom ated message] 7545823722) The system [employer] generated this result transmitted ref erence range: 0 - 5 HP F. The reference range was not used to int erpret this result as normal/abnormal . BACTERIA (test code = Negative Negative 0033292400) MUCOUS (test code = Slight Negative LPF A 7700688347) SQ EPITH (test code = <1 HPF 0624119989) Lab Interpretation (test Abnormal code = 19939-6) [facility]CB WITH [id number] 17:36:57 Test Item Value Reference Range Interpretation Comments WBC (test code = See_Comment [Automated 9189-2) message] The sy stem which generated this [...] RDW-SD (test code = 47.8 fL 39.0-49.9 48686-3) RDW-CV (test code = 13.4 % 12.0-15.5 788-0) PLT (test code = See_Comment [Automated 777-3) message] The sy stem which generated this result transmitted reference range : 166 - 358 10*3/ ?L. The reference r miky was not used to interpret this result as normal/abnormal . MPV (test code = 9.4 fL 9.5-12.9 L 14439-2) NRBC/100 WBC (test See_Comment [Automat ed code = 0790103387) message] The system which generated this result transmitted reference range : 0.0 - 10.0 /100 WBCs. The refer ence range was not u sed to interpret th is result as normal/abnormal . NRBC x10^3 (test code <0.01 See_Comment [Auto mated = 0578562795) message] The s ystem which generated this result transmitted reference range : 10*3/?L. The reference range was not used to interpret this result as normal/abnormal . GRAN MAT (NEUT) % 80.8 % (test code = 770-8) IMM GRAN % (test code 1.90 % = 7215651787) LYMPH % (test code = 15.0 % 736-9) MONO % (test code = 2.1 % 5905-5) EOS % (test code = 0.1 % 713-8) BASO % (test code = 0.1 % 706-2) GRAN MAT x10^3(ANC) 6.79 10*3/uL 1.88-7.09 (test code = 8607574894) IMM GRAN x10^3 (test 0.16 10*3/uL 0.00-0.06 H code = 4723237005) LYMPH x10^3 (test code 1.26 10*3/uL 1.32-3.29 L = 731-0) MONO x10^3 (test code 0.18 10*3/uL 0.33-0.92 L = 742-7) EOS x10^3 (test code = <0.03 0.03-0.39 L 711-2) BASO x10^3 (test code <0.03 0.01-0.07 = 704-7) Lab Interpretation Abnormal (test code = 26429-0) [facility] WITH [id number] 17:36:57 Test Item Value Reference Range Interpretation [...] RDW-SD (test code = 47.8 fL 39.0-49.9 11245-3) RDW-CV (test code = 13.4 % 12.0-15.5 788-0) PLT (test code = See_Comment [Automated 777-3) message] The sy stem which generated this result transmitted reference range : 166 - 358 10*3/ ?L. The reference r miky was not used to interpret this result as normal/abnormal . MPV (test code = 9.4 fL 9.5-12.9 L 73812-0) NRBC/100 WBC (test See_Comment [Automat ed code = 6291148994) message] The system which generated this result transmitted reference range : 0.0 - 10.0 /100 WBCs. The refer ence range was not u sed to interpret th is result as normal/abnormal . NRBC x10^3 (test code <0.01 See_Comment [Auto mated = 4387480131) message] The s ystem which generated this result transmitted reference range : 10*3/?L. The reference range was not used to interpret this result as normal/abnormal . GRAN MAT (NEUT) % 80.8 % (test code = 770-8) IMM GRAN % (test code 1.90 % = 2777248251) LYMPH % (test code = 15.0 % 736-9) MONO % (test code = 2.1 % 5905-5) EOS % (test code = 0.1 % 713-8) BASO % (test code = 0.1 % 706-2) GRAN MAT x10^3(ANC) 6.79 10*3/uL 1.88-7.09 (test code = 9568119414) IMM GRAN x10^3 (test 0.16 10*3/uL 0.00-0.06 H code = 4056475873) LYMPH x10^3 (test code 1.26 10*3/uL 1.32-3.29 L = 731-0) MONO x10^3 (test code 0.18 10*3/uL 0.33-0.92 L = 742-7) EOS x10^3 (test code = <0.03 0.03-0.39 L 711-2) BASO x10^3 (test code <0.03 0.01-0.07 = 704-7) Lab Interpretation Abnormal (test code = 57686-4) [facility] BranchMENINGITIS/ENCEPHALITIS PANEL BY [id number] 22:27:23 Test Item Value Reference Range Interpretation Comments Escherichia coli K1 Negative Negative, (test code = 18770-7) Indeterminate, See Comment Haemophilus influenzae Negative Negative, (test code = 73422-4) Indeterminate, See Comment Listeria monocytogenes Negative Negative, (test code = 29498-0) Indeterminate, See Comment Neisseria meningitidis Negative Negative, (encapsulated) (test Indeterminate, code = 27945-5) See Comment Streptococcus agalactiae Negative Negative, (test code = 22600-3) Indeterminate, See Comment Streptococcus pneumoniae Negative Negative, (test code = 74507-4) Indeterminate, See Comment Cytomegalovirus (test Negative Negative, code = 78537-1) Indeterminate, See Comment Enterovirus (test code = Negative Negative, 32424-8) Indeterminate, See Comment Herpes simplex virus 1 Negative Negative, (test code = 19405-0) Indeterminate, See Comment Herpes simplex virus 2 Negative Negative, (test code = 73721-7) Indeterminate, See Comment Human herpesvirus 6 Negative Negative, (test code = 73638-3) Indeterminate, See Comment Human parechovirus (test Negative Negative, code = 53716-4) Indeterminate, See Comment Varicella zoster virus Negative Negative, (test code = 96134-7) Indeterminate, See Comment Cryptococcus Negative Negative, neoformans/gattii (test Indeterminate, code = 98423-2) See Comment ANTHONY (test code = ANTHONY) Negative:A negative result does not rule-out infection. ?This assay does not test for all potential infectious agents. Positive:A positive test result does not necessarily indicate the presence of viable organism. ? Lab Interpretation (test Normal code = 29317-1) [facility] FLUID DIRECT [id number] 21:52:07 Test Item Value Reference Range Interpretation Comments BF COLOR (test code = Clear 1332602385) BF WBC Count (test See_Comment [Automat ed message] The code = 1460921840) system [facility] generated this result transmit karly reference range : 0 - 5 /?L. The reference r miky was not used to interpr et this result as cassandra l/abnormal. BF RBC Count (test See_Comment [Automat ed message] The code = 3626640707) system [facility] generated this result transmit karly reference range : /?L. The reference range was not used to interpr et this result as cassandra l/abnormal. [facility] FLUID MANUAL [id number] 21:52:07BF SEGSComment: Less than 100 cells counted due to low WBC; Differential is not reported in percent. 10 cells counted: 1 Neutrophils, 9 Lymphocytes, 0 Macrophages [facility]#CELS CNTDUTMB LABORATORY SERVICESUnStarr County Memorial HospitalCEREBROSPINAL FLUID [id number] 20:58:36 Test Item Value Reference Range Interpretation Comments T. PRO CSF (test code = 68.0 mg/dL 15.0-45.0 H 9760729445) UNSPUN BODY FLUID COLOR Light Red (test code = 2529092452) UNSPUN BODY FLUID CLARITY Cloudy (test code = 2146442163) SPUN BODY FLUID COLOR [place] (test code = 1324118332) SPUN BODY FLUID CLARITY Clear (test code = 1798457521) Sediment (test code = The se diment 4327964914) volume is <0.1 mLs of the total fl uid volume of 5cc a nd its color is re d. Lab Interpretation (test Abnormal code = 13710-9) [facility] [id number] 20:58:25 Test Item Value Reference Range Interpretation Comments GLU CSF (test code = 74 mg/dL 50-80 2051393103) UNSPUN BODY FLUID Light Red COLOR (test code = 1274324955) UNSPUN BODY FLUID Cloudy CLARITY (test code = 3050054232) SPUN BODY FLUID COLOR [place] (test code = 6312495253) SPUN BODY FLUID Clear CLARITY (test code = 5159957326) Sediment (test code = The se diment volume is 5770730422) <0.1 mLs of the total fluid volume of 5cc and its color i s red. [facility]kinXR CHEST 1 [id number] 15:19:43 No acute cardiopulmonary process. Preliminary Report Dictated by Resident: Francisco Reyes MD., have reviewed this study and agree with theabove report.PROCEDURE: XR CHEST 1 VW CLINICAL INDICATION: leukocytosis TECHNIQUE: Frontal chest radiograph was obtained. COMPARISON: 06/26/2020 FINDINGS: The lungs are clear. No pleural effusion or pneumothorax is seen. The heart is normal in size. No acute bony abnormality is noted. [facility], Radiant Results Inft User - 07/14/2020 10:20 [...] this study and agree with theabove report. [facility]PO[facility] GLUCOSE (AUTOMATED)2020-07-14 15:07:20 Test Item Value Reference Range Interpretation Comments POCT GLU (test code = 0490722481) 98 mg/dL 70-110 Lab Interpretation (test code = Normal 63221-3) [facility]kinC-REACTIVE [id number] 14:51:17 Test Item Value Reference Range Interpretation Comments CRP (test code = 0171893450) 0.2 mg/dL <0.8 Lab Interpretation (test code = Normal 62911-1) [facility]kinMAGNESIUM2021-06-02 14:40:38 Test Item Value Reference Range Interpretation Comments MAGNESIUM (test code = 7540394657) 2.1 mg/dL 1.7-2.4 Lab Interpretation (test code = Normal 14333-7) [facility]ufkinPhosphorus [id number] 13:50:50 Test Item Value Reference Range Interpretation Comments PHOSPHORUS (test code = 2718824078) 3.1 mg/dL 2.5-5.0 Lab Interpretation (test code = Normal 97972-1) [facility]kinBasic Metabolic Panel (NA, K, CL, CO2, GLUCOSE, BUN, CREATININE, CA)2020-07-14 12:41:09 Test Item Value Reference Range Interpretation Comments NA (test code = 136 mmol/L 135-145 4702247413) K (test code = 4.3 mmol/L 3.5-5.0 9876651515) CL (test code = 108 mmol/L 98-108 9678268626) CO2 TOTAL (test code = 17 mmol/L 23-31 L 0957552761) AGAP (test code = 2-16 5790303109) BUN (test code = 22 mg/dL 7-23 2176125136) GLUCOSE (test code = 98 mg/dL 70-110 3658980387) CREATININE (test code = 0.70 mg/dL 0.50-1.04 6137663389) CALCIUM (test code = 9.4 mg/dL 8.6-10.6 2375802111) eGFR (test code = mL/min/1.73m2 7208155764) ANTHONY (test code = ANTHONY) Association of [...] tests). Lab Interpretation Abnormal (test code = 12461-8) [facility]kinHepatic Function Panel (ALB, T.PRO, BILI T, BU/BC, ALT, AST, ALK PHOS)2020-07-14 12:41:09 Test Item Value Reference Range Interpretation Comments TOTAL BILI (test code = 2233602768) 0.3 mg/dL 0.1-1.1 BILI UNCON (test code = 4707267256) 0.1 mg/dL 0.1-1.1 BILI CONJ (test code = 0772077732) 0.0 mg/dL 0.0-0.3 T PROTEIN (test code = 1560429805) 7.6 g/dL 6.3-8.2 ALBUMIN (test code = 6184017273) 4.6 g/dL 3.5-5.0 ALK PHOS (test code = 5910604224) 120 U/L 34-122 ALTv (test code = 1742-6) 42 U/L 5-35 H AST(SGOT) (test code = 4353125526) 24 U/L 13-40 Lab Interpretation (test code = Abnormal 10684-8) [facility] LufkinUrinalysis2021-06-02 10:22:07 Test Item Value Reference Range Interpretation Comments APPEARANCE (test code = Clear Clear 2441100704) COLOR (test code = Yellow Yellow 9254511859) PH (test code = 4.8-8.0 3401991108) SP GRAVITY (test code = 1.003-1.030 1322783151) GLU U QUAL (test code = Normal Normal 3552317841) BLOOD (test code = Negative Negative 5128486000) KETONES (test code = Negative Negative 1201025004) PROTEIN (test code = Negative Negative 2887-8) UROBILIN (test code = Normal Normal 1971197422) BILIRUBIN (test code = Negative Negative 7301985475) NITRITE (test code = Negative Negative 7091027255) LEUK MURRAY (test code = Negative Negative 9906059995) RBC/HPF (test code = See_Comment [Autom ated message] 8572390264) The system [employer] generated this result transmitted ref erence range: 0 - 3 HP F. The reference range was not used to int erpret this result as normal/abnormal . WBC/HPF (test code = See_Comment [Autom ated message] 5138548059) The system [employer] generated this result transmitted ref erence range: 0 - 5 HP F. The reference range was not used to int erpret this result as normal/abnormal . BACTERIA (test code = Negative Negative 9121049831) MUCOUS (test code = Slight Negative LPF A 6512633897) SQ EPITH (test code = See_Comment [Auto mated message] 9420437722) The system [employer] generated this result transmitted ref erence range: <=2 HPF. The reference range was not used to int erpret this result as normal/abnormal . Lab Interpretation (test Abnormal code = 21947-7) [facility]kinCOVID-19 (ID NOW RAPID TESTING)2020-07-14 09:45:51 Test Item Value Reference Range Interpretation Comments SARS-CoV-2 Rapid ID NOW Not Detected Not Detected (test code = 88188-0) ANTHONY (test code = ANTHONY) ID NOW COVID-19 Assay is an isothermal nucleic acid amplification test intended for the qualitative detection of nucleic acid from SARS-CoV-2 viral RNA in nasopharyngeal (PROGRAM PROFESSIONAL) specimens. It is used under Emergency Use [...] indicated. Lab Interpretation Normal (test code = 75337-9) [facility] with Ohjzdjclllxc4059-29-05 02:07:47 Test Item Value Reference Range Interpretation Comments WBC (test code = See_Comment H [Automated 9795-2) message] The system which generated this result transmit karly reference range : 4.30 - 11.10 10*3/?L. The reference range was not used to interpret this result as normal/abnormal . RBC (test code = See_Comment L [Automated 649-8) message] The system which generated this result [...] RDW-SD (test code = 47.8 fL 39.0-49.9 19134-8) RDW-CV (test code = 13.6 % 12.0-15.5 788-0) PLT (test code = See_Comment H [Automated 777-3) message] The system which generated this result transmit karly reference range : 166 - 358 10*3/ ?L. The reference range was not u sed to interpret th is result as normal/abnormal . MPV (test code = 10.6 fL 9.5-12.9 41360-8) NRBC/100 WBC (test See_Comment [Automat ed code = 3676386778) message] The system which generated this result transmit karly reference range : 0.0 - 10.0 /100 WBCs. The reference range was not used to interpret this result as normal/abnormal . NRBC x10^3 (test code See_Comment [Auto mated = 9692691863) message] The system which generated this result transmit karly reference range : 10*3/?L. The reference range was not used to interpret this result as normal/abnormal . GRAN MAT (NEUT) % 70.5 % (test code = 770-8) IMM GRAN % (test code 1.60 % = 4001171955) LYMPH % (test code = 20.8 % 736-9) MONO % (test code = 6.8 % 5905-5) EOS % (test code = 0.1 % 713-8) BASO % (test code = 0.2 % 706-2) GRAN MAT x10^3(ANC) 12.19 10*3/uL 1.88-7.09 H (test code = 6411106710) IMM GRAN x10^3 (test 0.27 10*3/uL 0.00-0.06 H code = 6815864787) LYMPH x10^3 (test code 3.58 10*3/uL 1.32-3.29 H = 731-0) MONO x10^3 (test code 1.17 10*3/uL 0.33-0.92 H = 742-7) EOS x10^3 (test code = <0.03 0.03-0.39 L 711-2) BASO x10^3 (test code 0.03 10*3/uL 0.01-0.07 = 704-7) Lab Interpretation Abnormal (test code = 15221-1) [facility] [id number] 02:02:09 Test Item Value Reference Range Interpretation Comments ESR (test code = See_Comment H [Automated message] 0899745988) The system [employer] h generated this result transmitted ref erence range: 0 - 20 m m/HR. The reference r miky was not used to interpret this result as normal/abnor mal. Lab Interpretation (test Abnormal code = 16662-7) [facility] WITH [id number] 03:30:13 Test Item Value Reference Range Interpretation [...] RDW-SD (test code = 48.1 fL 39.0-49.9 72747-3) RDW-CV (test code = 13.3 % 12.0-15.5 788-0) PLT (test code = See_Comment [Automated 777-3) message] The sy stem which generated this result transmitted reference range : 166 - 358 10*3/ ?L. The reference r miky was not used to interpret this result as normal/abnormal . MPV (test code = 10.4 fL 9.5-12.9 23682-2) NRBC/100 WBC (test See_Comment [Automat ed code = 8907863968) message] The system which generated this result transmitted reference range : 0.0 - 10.0 /100 WBCs. The refer ence range was not u sed to interpret th is result as normal/abnormal . NRBC x10^3 (test code <0.01 See_Comment [Auto mated = 2498923941) message] The s ystem which generated this result transmitted reference range : 10*3/?L. The reference range was not used to interpret this result as normal/abnormal . GRAN MAT (NEUT) % 44.6 % (test code = 770-8) IMM GRAN % (test code 0.80 % = 7349759832) LYMPH % (test code = 43.3 % 736-9) MONO % (test code = 10.0 % 5905-5) EOS % (test code = 0.9 % 713-8) BASO % (test code = 0.4 % 706-2) GRAN MAT x10^3(ANC) 3.52 10*3/uL 1.88-7.09 (test code = 6560296841) IMM GRAN x10^3 (test 0.06 10*3/uL 0.00-0.06 code = 7194197075) LYMPH x10^3 (test code 3.42 10*3/uL 1.32-3.29 H = 731-0) MONO x10^3 (test code 0.79 10*3/uL 0.33-0.92 = 742-7) EOS x10^3 (test code = 0.07 10*3/uL 0.03-0.39 711-2) BASO x10^3 (test code 0.03 10*3/uL 0.01-0.07 = 704-7) Lab Interpretation Abnormal (test code = 92082-1) [facility]21-[facility] 19:38:39 Test Item Value Reference Range Interpretation Comments LIPASE (test code = 5467339374) 39 U/L 0-220 Lab Interpretation (test code = Normal 35448-0) [facility]. METABOLIC PANEL (81381)2020-07-04 19:20:59 Test Item Value Reference Range Interpretation Comments NA (test code = 138 mmol/L 135-145 5224873889) K (test code = 3.9 mmol/L 3.5-5.0 1954043331) CL (test code = 101 mmol/L 98-108 9502648908) CO2 TOTAL (test code = 27 mmol/L 23-31 0125097018) AGAP (test code = 2-16 1234382045) BUN (test code = 20 mg/dL 7-23 0751976568) GLUCOSE (test code = 105 mg/dL 70-110 0428609256) CREATININE (test code = 0.78 mg/dL 0.50-1.04 7879881089) TOTAL BILI (test code = 0.4 mg/dL 0.1-1.6 1932155448) CALCIUM (test code = 9.8 mg/dL 8.6-10.6 6354903395) T PROTEIN (test code = 9.1 g/dL 6.3-8.2 H 9272206738) ALBUMIN (test code = 4.9 g/dL 3.5-5.0 9401012712) ALK PHOS (test code = 171 U/L 34-122 H 5374144645) ALTv (test code = 136 U/L 5-35 H 1742-6) AST(SGOT) (test code = 82 U/L 13-40 H 8202040645) eGFR (test code = mL/min/1.73m2 1334069246) ANTHONY (test code = ANTHONY) Association of [...] tests). Lab Interpretation Abnormal (test code = 48352-2) [facility]inalysis2021-05-23 19:14:12 Test Item Value Reference Range Interpretation Comments APPEARANCE (test code = Clear Clear 0819175667) COLOR (test code = Yellow Yellow 2156842250) PH (test code = 4.8-8.0 3685680944) SP GRAVITY (test code = 1.003-1.030 9777662947) GLU U QUAL (test code = Normal Normal 3956395128) BLOOD (test code = Negative Negative 6047962785) KETONES (test code = Negative Negative 7898070881) PROTEIN (test code = Negative Negative 2887-8) UROBILIN (test code = Normal Normal 3193239423) BILIRUBIN (test code = Negative Negative 1516036727) NITRITE (test code = Negative Negative 8829795318) LEUK MURRAY (test code = 75/uL Negative A 3623288027) RBC/HPF (test code = See_Comment [Autom ated message] 3676250539) The system [employer] generated this result transmitted ref erence range: 0 - 3 HP F. The reference range was not used to int erpret this result as normal/abnormal . WBC/HPF (test code = See_Comment H [Autom ated message] 3492979821) The system [employer] generated this result transmitted ref erence range: 0 - 5 HP F. The reference range was not used to int erpret this result as normal/abnormal . BACTERIA (test code = Negative Negative 5266654921) MUCOUS (test code = Slight Negative LPF A 4103399152) SQ EPITH (test code = HPF 2589470376) Lab Interpretation (test Abnormal code = 46663-8) [facility] WITH [id number] 19:10:40 Test Item Value Reference Range Interpretation [...] RDW-SD (test code = 47.2 fL 39.0-49.9 87027-9) RDW-CV (test code = 13.2 % 12.0-15.5 788-0) PLT (test code = See_Comment [Automated 777-3) message] The sy stem which generated this result transmitted reference range : 166 - 358 10*3/ ?L. The reference r miky was not used to interpret this result as normal/abnormal . MPV (test code = 10.5 fL 9.5-12.9 76240-5) NRBC/100 WBC (test See_Comment [Automat ed code = 1064554563) message] The system which generated this result transmitted reference range : 0.0 - 10.0 /100 WBCs. The refer ence range was not u sed to interpret th is result as normal/abnormal . NRBC x10^3 (test code <0.01 See_Comment [Auto mated = 9642557965) message] The s [employer] which generated this result transmitted reference range : 10*3/?L. The reference range was not used to interpret this result as normal/abnormal . GRAN MAT (NEUT) % 54.8 % (test code = 770-8) IMM GRAN % (test code 0.80 % = 5217883737) LYMPH % (test code = 32.1 % 736-9) MONO % (test code = 10.3 % 5905-5) EOS % (test code = 1.7 % 713-8) BASO % (test code = 0.3 % 706-2) GRAN MAT x10^3(ANC) 3.46 10*3/uL 1.88-7.09 (test code = 9408350089) IMM GRAN x10^3 (test 0.05 10*3/uL 0.00-0.06 code = 6923253657) LYMPH x10^3 (test code 2.03 10*3/uL 1.32-3.29 = 731-0) MONO x10^3 (test code 0.65 10*3/uL 0.33-0.92 = 742-7) EOS x10^3 (test code = 0.11 10*3/uL 0.03-0.39 711-2) BASO x10^3 (test code <0.03 0.01-0.07 = 704-7) Lab Interpretation Abnormal (test code = 66440-6) [facility]kinZOLTAN [id number] 17:09:15 Test Item Value Reference Range Interpretation Comments TROPONIN I (test 0.000 ng/mL See_Comment [Automated code = 0753337226) message] The system which generated this result [...] ? Lab Interpretation Normal (test code = 56671-2) [facility]MR BRAIN WO [id number] 15:28:24 Within the limitation of motion degrading [...] Results Inft User - 06/27/2020 10:29 AM CDR BRAIN WO CONTRASTCOMPARISON: CT head dated 06/26/2020.HISTORY: [...] reviewed this study and agree with theabove report.[facility] HEAD 2020-06-27 01:50:14 No large vessel [...] suspected TECHNIQUE: Axial CT imaging of the [place] and from the skull baseto the superior mediastinum was obtained during arterial phase after theintravenous administration of IV contrast. Coronal, sagittal, and MIPS wereconstructed. COMPARISON: Same day CT head FINDINGS: CTA HEAD: The PICA origin is visualized bilaterally. The basilar artery is normal incaliber. Common origin of the left superior cerebellar and [employer]CH [employer] SUPERVISOR is noted.The superior cerebellar arteries are patent. The posterior cerebralarteries are patent. A right [employer] SUPERVISOR is identified. Asmall leftposterior communicating artery is [...] suspected TECHNIQUE: Axial CT imaging of the [place] and from the skull basetothe superior mediastinum was obtained during arterial phase after theintravenous administration of IV contrast. Coronal, sagittal, and MIPS wereconstructed.COMPARISON: Same day CT headFINDINGS:CTA HEAD:The PICA origin is visualized bilaterally. The basilar artery is normal incaliber. Common origin of the left superior cerebellar and [employer]IST[employer] SUPERVISOR is noted.The superior cerebellar arteries are patent. The posterior cerebralarteries are patent. A right [employer]CH [employer] SUPERVISOR is identified. A small leftposterior communicatingartery is [...] this study and agree with theabove report. [facility]CT ANGIOGRAM [id number] 01:50:14 No large vessel occlusion or flow-limiting stenosis is identified in thehead and neck arteries. Follow-up with dedicated thyroid ultrasound on a non-emergent, outpatientbasis is recommended for further characterization. Preliminary Report Dictated by Resident: Aury Hallman MD.,have reviewed this study and agree with theabove report.EXAM: CT ANGIOGRAM HEAD, CT ANGIOGRAM NECK HISTORY: ?Headache, intracranial hemorrhage suspected TECHNIQUE: Axial CT imaging of the [place] and from the skull baseto the superior mediastinum was obtained during arterial phase after theintravenous administration of IV contrast. Coronal, sagittal, and MIPS wereconstructed. COMPARISON: Same day CT head FINDINGS: CTA HEAD: The PICA origin is visualized bilaterally. The basilar artery is normal incaliber. Common origin of the left superior cerebellar and [employer] SUPERVISOR is noted.The superior cerebellar arteries are patent. The posterior cerebralarteries are patent. A right [employer]ANCH [employer]IST[employer] SUPERVISOR is identified. Asmall leftposterior communicating artery is [...] suspected TECHNIQUE: Axial CT imaging of the [place] and from the skull basetothe superior mediastinum was obtained during arterial phase after theintravenous administration of IV contrast. Coronal, sagittal, and MIPS wereconstructed.COMPARISON: Same day CT headFINDINGS:CTA HEAD:The PICA origin is visualized bilaterally. The basilar artery is normal incaliber. Common origin of the left superior cerebellar and [employer] SUPERVISOR is noted.The superior cerebellar arteries are patent. The posterior cerebralarteries are patent. A right BRANCH LOGISTICS SUPERVISOR is identified. A small leftposterior communicating artery [...] this study and agree with theabove report. [facility]kinSEDIMENTATION [id number] 01:00:08 Test Item Value Reference Range Interpretation Comments ESR (test code = See_Comment H [Automated message] 3338971709) The system [employer] generated this result transmitted ref erence range: 0 - 20 m m/HR. The reference r miky was not used to interpret this result as normal/abnor mal. Lab Interpretation (test Abnormal code = 66902-7) [facility] HEAD WO [id number] 00:39:04 No acute intracranial hemorrhage or mass [...] reviewed this study and agree with theabove report.[facility]COVID-19 (ID NOW RAPID TESTING)2020-06-26 22:58:15 Test Item Value Reference Range Interpretation Comments SARS-CoV-2 Rapid ID NOW Not Detected Not Detected (test code = 37572-0) ANTHONY (test code = ANTOHNY) ID NOW COVID-19 Assay is an isothermal nucleic acid amplification test intended for the qualitative detection of nucleic acid from SARS-CoV-2 viral RNA in nasopharyngeal (PROGRAM PROFESSIONAL) specimens. It is used under Emergency Use [...] indicated. Lab Interpretation Normal (test code = 49455-8) [facility] 1 [id number] 22:12:42 No acute cardiopulmonary abnormality. Preliminary Report [...] cardiopulmonary abnormality. Preliminary Report Dictated by Resident: Tom Dewey, Rex Carroll MD., have reviewed this study and agree with the abovereport.[facility]inal[facility] 2020-06-26 21:49:50 Test Item Value Reference Range Interpretation Comments APPEARANCE (test code = Clear Clear 4212822458) COLOR (test code = Yellow Yellow 8192793013) PH (test code = 4.8-8.0 7508595409) SP GRAVITY (test code = 1.003-1.030 5530924203) GLU U QUAL (test code = Normal Normal 2574687552) BLOOD (test code = Negative Negative 7526054880) KETONES (test code = Negative Negative 6437423181) PROTEIN (test code = Negative Negative 2887-8) UROBILIN (test code = Normal Normal 4499496555) BILIRUBIN (test code = Negative Negative 9785516985) NITRITE (test code = Negative Negative 1869189961) LEUK MURRAY (test code = Negative Negative 3941173325) RBC/HPF (test code = See_Comment [Autom ated message] 4177396849) The system [employer] generated this result transmitted ref erence range: 0 - 3 HP F. The reference range was not used to int erpret this result as normal/abnormal . WBC/HPF (test code = See_Comment [Autom ated message] 7878792037) The system [employer] generated this result transmitted ref erence range: 0 - 5 HP F. The reference range was not used to int erpret this result as normal/abnormal . BACTERIA (test code = Negative Negative 8702558855) MUCOUS (test code = Slight Negative LPF A 3301132327) SQ EPITH (test code = HPF 5408175554) Lab Interpretation (test Abnormal code = 96672-7) [facility]kinTroponin [id number] 21:18:44 Test Item Value Reference Range Interpretation Comments TROPONIN I (test <0.012 See_Comment [Automated code = 6507843475) message] The system which generated this result transmitted reference range : <=0.034 ng/mL. The reference range was not used to interpr et this result as normal/abnormal . ANTHONY (test code = Equal or Less than ATNHONY) 0.034 ng/ml---Normal ?Note: Cardiac troponin begins to [...] ? Lab Interpretation Normal (test code = 08596-4) [facility] Metabolic Panel (NA, K, CL, CO2, GLUCOSE, BUN, CREATININE, CA)2020-06-26 21:07:49 Test Item Value Reference Range Interpretation Comments NA (test code = 141 mmol/L 135-145 2511965758) K (test code = 4.1 mmol/L 3.5-5.0 9677279839) CL (test code = 109 mmol/L 98-108 H 8620668509) CO2 TOTAL (test code = 23 mmol/L 23-31 3673957042) AGAP (test code = 2-16 9504508199) BUN (test code = 19 mg/dL 7-23 0491146615) GLUCOSE (test code = 112 mg/dL 70-110 H 9661681894) CREATININE (test code = 0.87 mg/dL 0.50-1.04 1602863010) CALCIUM (test code = 9.6 mg/dL 8.6-10.6 0144125449) eGFR (test code = mL/min/1.73m2 5361128431) ANTHONY (test code = ANTHONY) Association of [...] tests). Lab Interpretation Abnormal (test code = 96191-1) [facility] Function Panel (ALB, T.PRO, BILI T, BU/BC, ALT, AST, ALK PHOS)2020-06-26 21:07:28 Test Item Value Reference Range Interpretation Comments TOTAL BILI (test code = 2164957494) 0.3 mg/dL 0.1-1.1 BILI UNCON (test code = 3069893417) 0.1 mg/dL 0.1-1.1 BILI CONJ (test code = 4405318995) 0.0 mg/dL 0.0-0.3 T PROTEIN (test code = 9307666041) 7.4 g/dL 6.3-8.2 ALBUMIN (test code = 6909544183) 4.4 g/dL 3.5-5.0 ALK PHOS (test code = 0393265467) 138 U/L 34-122 H ALTv (test code = 1742-6) 32 U/L 5-35 AST(SGOT) (test code = 3069708250) 40 U/L 13-40 Lab Interpretation (test code = Abnormal 07907-1) [facility] with [id number] 20:55:04 Test Item Value Reference Range Interpretation [...] RDW-SD (test code = 49.3 fL 39.0-49.9 93851-2) RDW-CV (test code = 13.7 % 12.0-15.5 788-0) PLT (test code = See_Comment [Automated 777-3) message] The sy stem which generated this result transmitted reference range : 166 - 358 10*3/ ?L. The reference r miky was not used to interpret this result as normal/abnormal . MPV (test code = 10.7 fL 9.5-12.9 82834-7) NRBC/100 WBC (test See_Comment [Automat ed code = 0432453123) message] The system which generated this result transmitted reference range : 0.0 - 10.0 /100 WBCs. The refer ence range was not u sed to interpret th is result as normal/abnormal . NRBC x10^3 (test code <0.01 See_Comment [Auto mated = 5053387933) message] The s [employer]stem which generated this result transmitted reference range : 10*3/?L. The reference range was not used to interpret this result as normal/abnormal . GRAN MAT (NEUT) % 57.2 % (test code = 770-8) IMM GRAN % (test code 0.20 % = 2121925394) LYMPH % (test code = 31.8 % 736-9) MONO % (test code = 9.9 % 5905-5) EOS % (test code = 0.6 % 713-8) BASO % (test code = 0.3 % 706-2) GRAN MAT x10^3(ANC) 3.80 10*3/uL 1.88-7.09 (test code = 6414699417) IMM GRAN x10^3 (test <0.03 0.00-0.06 code = 8308224081) LYMPH x10^3 (test code 2.11 10*3/uL 1.32-3.29 = 731-0) MONO x10^3 (test code 0.66 10*3/uL 0.33-0.92 = 742-7) EOS x10^3 (test code = 0.04 10*3/uL 0.03-0.39 711-2) BASO x10^3 (test code <0.03 0.01-0.07 = 704-7) Lab Interpretation Abnormal (test code = 45631-2) [facility]. METABOLIC PANEL (34453)2020-06-01 11:34:39 Test Item Value Reference Range Interpretation Comments NA (test code = 137 mmol/L 135-145 7340884827) K (test code = 4.3 mmol/L 3.5-5.0 4348957240) CL (test code = 106 mmol/L 98-108 1294416354) CO2 TOTAL (test code = 26 mmol/L 23-31 2904250215) AGAP (test code = 2-16 2538385899) BUN (test code = 13 mg/dL 7-23 7490598975) GLUCOSE (test code = 81 mg/dL 70-110 8866418902) CREATININE (test code = 0.76 mg/dL 0.50-1.04 5921279229) TOTAL BILI (test code = 0.4 mg/dL 0.1-1.9 2354368585) CALCIUM (test code = 8.5 mg/dL 8.6-10.6 L 0792507933) T PROTEIN (test code = 6.0 g/dL 6.3-8.2 L 2182161993) ALBUMIN (test code = 3.5 g/dL 3.5-5.0 3657651016) ALK PHOS (test code = 128 U/L 34-122 H 6692275504) ALTv (test code = 54 U/L 5-35 H 1742-6) AST(SGOT) (test code = 51 U/L 13-40 H 8092287431) eGFR (test code = mL/min/1.73m2 3266542542) ANTHONY (test code = ANTHONY) Association of [...] tests). Lab Interpretation Abnormal (test code = 79312-4) [facility] COVID [id number] 02:48:13COVID DMT InterpretationInterpretation/Recommendations: Molecular NAAT Tests for [...] COVID-19 testing the patient has had at [facility], including molecular NAAT testing (more commonlyknown as PCR testing and Rapid ID Now testing) and antibody testing. It does not take into account any testing that a patient has had outside of the [facility] medical record. [facility] LABORATORY SERVICESCOVID FjgvpgaWMWJ-ByT-1 Rapid ID NOW (no units) ? ? Date ? Value ? 05/30/2020 ? Not Detected ? [facility] (NA, K, CL, CO2, GLUCOSE, BUN, CREATININE, CA)2020-05-31 15:23:27 Test Item Value Reference Range Interpretation Comments NA (test code = 137 mmol/L 135-145 9048079257) K (test code = 4.0 mmol/L 3.5-5.0 3301613735) CL (test code = 105 mmol/L 98-108 9914279429) CO2 TOTAL (test code 27 mmol/L 23-31 = 1651722679) AGAP (test code = 2-16 8004684720) BUN (test code = 14 mg/dL 7-23 1457951210) GLUCOSE (test code = 92 mg/dL 70-110 7079670940) CREATININE (test code 0.72 mg/dL 0.50-1.04 = 0093977156) CALCIUM (test code = 8.8 mg/dL 8.6-10.6 0021680511) eGFR (test code = mL/min/1.73m2 1012698505) ANTHONY (test code = ANTHONY) Association of [...] or urine or abnormalities in imaging tests). [facility] with Qwpjcktznrfp8464-94-41 12:40:08 Test Item Value Reference Range Interpretation [...] (test code = 51.6 fL 39.0-49.9 H 79658-2) RDW-CV (test code = 14.3 % 12.0-15.5 788-0) PLT (test code = See_Comment [Automated 777-3) message] The sy stem which generated this result transmitted reference range : 166 - 358 10*3/ ?L. The reference r miky was not used to interpret this result as normal/abnormal . MPV (test code = 10.0 fL 9.5-12.9 66621-2) NRBC/100 WBC (test See_Comment [Automat ed code = 0817695503) message] The system which generated this result transmitted reference range : 0.0 - 10.0 /100 WBCs. The refer ence range was not u sed to interpret th is result as normal/abnormal . NRBC x10^3 (test code <0.01 See_Comment [Auto mated = 2594734136) message] The s ystem which generated this result transmitted reference range : 10*3/?L. The reference range was not used to interpret this result as normal/abnormal . GRAN MAT (NEUT) % 40.2 % (test code = 770-8) IMM GRAN % (test code 0.40 % = 1332449882) LYMPH % (test code = 47.8 % 736-9) MONO % (test code = 10.5 % 5905-5) EOS % (test code = 0.9 % 713-8) BASO % (test code = 0.2 % 706-2) GRAN MAT x10^3(ANC) 2.15 10*3/uL 1.88-7.09 (test code = 7866509684) IMM GRAN x10^3 (test <0.03 0.00-0.06 code = 6921576559) LYMPH x10^3 (test code 2.55 10*3/uL 1.32-3.29 = 731-0) MONO x10^3 (test code 0.56 10*3/uL 0.33-0.92 = 742-7) EOS x10^3 (test code = 0.05 10*3/uL 0.03-0.39 711-2) BASO x10^3 (test code <0.03 0.01-0.07 = 704-7) Lab Interpretation Abnormal (test code = 26001-8) [facility] PEL[facility] W WO [id number] 21:54:53 1. ?Nonobstructive left nephrolithiasis. No striated nephrograms to suggestpyelonephritis. Correlate clinically. 2. ?Status post cholecystectomy and hysterectomy. 3. 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 Correlate with biliary laboratory values. Preliminary Report Dictated by Resident: Reno Morillo MD., have reviewed this study andagree with theabove [...] biliary laboratory values.Preliminary Report Dictated by Resident: Reno Real MD., have reviewed this study and agree with theabove report. [facility] (ID NOW RAPID TESTING)2020-05-30 20:50:01 Test Item Value Reference Range Interpretation Comments SARS-CoV-2 Rapid ID NOW Not Detected Not Detected (test code = 03356-9) ANTHONY (test code = ANTHONY) ID NOW COVID-19 Assay is an isothermal nucleic acid amplification test intended for the qualitative detection of nucleic acid from SARS-CoV-2 viral RNA in nasopharyngeal (PROGRAM PROFESSIONAL) specimens. It is used under Emergency Use [...] indicated. Lab Interpretation Normal (test code = 95475-4) [facility] Metabolic Panel (NA, K, CL, CO2, GLUCOSE, BUN, CREATININE, CA)2020-05-30 20:40:22 Test Item Value Reference Range Interpretation Comments NA (test code = 139 mmol/L 135-145 6423474206) K (test code = 4.0 mmol/L 3.5-5.0 7138036342) CL (test code = 105 mmol/L 98-108 8147408237) CO2 TOTAL (test code 25 mmol/L 23-31 = 3298864366) AGAP (test code = 2-16 7644292167) BUN (test code = 18 mg/dL 7-23 8785567890) GLUCOSE (test code = 100 mg/dL 70-110 3545592422) CREATININE (test code 0.66 mg/dL 0.50-1.04 = 8836577283) CALCIUM (test code = 9.2 mg/dL 8.6-10.6 6722182215) eGFR (test code = mL/min/1.73m2 1290127473) ANTHONY (test code = ANTHONY) Association of [...] or urine or abnormalities in imaging tests). [facility] (ALB, T.PRO, BILI T, BU/BC, ALT, AST, ALK PHOS)2020-05-30 20:40:22 Test Item Value Reference Range Interpretation Comments TOTAL BILI (test code = 8002699019) 0.4 mg/dL 0.1-1.1 BILI UNCON (test code = 2028696609) 0.2 mg/dL 0.1-1.1 BILI CONJ (test code = 8245712407) 0.0 mg/dL 0.0-0.3 T PROTEIN (test code = 5509491072) 7.7 g/dL 6.3-8.2 ALBUMIN (test code = 9213783728) 4.6 g/dL 3.5-5.0 ALK PHOS (test code = 9327777206) 158 U/L 34-122 H ALTv (test code = 1742-6) 70 U/L 5-35 H AST(SGOT) (test code = 9339971026) 46 U/L 13-40 H Lab Interpretation (test code = Abnormal 51486-8) [facility] 20:37:21 Test Item Value Reference Range Interpretation Comments APTT Patient (test See_Comment [Automat ed code = 3173-2) message] The system which generated this result transmitted reference range : 23 - 38 Seconds . The reference range was not used to interpr et this result as normal/abnormal . ANTHONY (test code = ANTHONY) The [facility] patient population mean normal value for aPTT is 30 seconds. Lab Interpretation Normal (test code = 67321-6) [facility]kinProthrombin Time (PT) / [id number] 20:35:00 Test Item Value Reference Range Interpretation Comments PROTIME PATIENT (test See_Comment [Auto mated message] code = 5964-2) The system ich generated this result transmitted ref erence range: 12.0 - 1 4.7 Seconds. The re ference range was not u sed to interpret this result as normal/abnor mal. INR (test code = 6301-6) Nor mal INR <1.1; Warfarin Therap eutic range 2.0 to 3. 0 or 2.5 to 3.5, dep ending upon the indica tions. Lab Interpretation (test Normal code = 74790-3) [facility]inalysis2021-04-18 20:34:10 Test Item Value Reference Range Interpretation Comments APPEARANCE (test code = Clear Clear 0933293807) COLOR (test code = Yellow Yellow 8306729323) PH (test code = 4.8-8.0 7810048365) SP GRAVITY (test code = 1.003-1.030 1480410571) GLU U QUAL (test code = Normal Normal 9271716321) BLOOD (test code = Negative Negative 7129109816) KETONES (test code = Negative Negative 8923448997) PROTEIN (test code = Negative Negative 2887-8) UROBILIN (test code = Normal Normal 5867931202) BILIRUBIN (test code = Negative Negative 6354081098) NITRITE (test code = Negative Negative 0264904960) LEUK MURRAY (test code = 25/uL Negative A 9106991731) RBC/HPF (test code = See_Comment [Autom ated message] 0476270340) The system [employer] generated this result transmitted ref erence range: 0 - 3 HP F. The reference range was not used to int erpret this result as normal/abnormal . WBC/HPF (test code = See_Comment [Autom ated message] 6981869193) The system [employer] generated this result transmitted ref erence range: 0 - 5 HP F. The reference range was not used to int erpret this result as normal/abnormal . BACTERIA (test code = Few Negative A 0073978954) MUCOUS (test code = Slight Negative LPF A 0775263525) SQ EPITH (test code = HPF 8216022336) Lab Interpretation (test Abnormal code = 15490-0) [facility] with [id number] 20:27:23 Test Item Value Reference Range Interpretation Comments WBC (test code = See_Comment [Automated 9990-2) message] The sy stem which generated this [...] RDW-SD (test code = 49.6 fL 39.0-49.9 41560-8) RDW-CV (test code = 14.1 % 12.0-15.5 788-0) PLT (test code = See_Comment [Automated 777-3) message] The sy stem which generated this result transmitted reference range : 166 - 358 10*3/ ?L. The reference r miky was not used to interpret this result as normal/abnormal . MPV (test code = 9.7 fL 9.5-12.9 83962-0) NRBC/100 WBC (test See_Comment [Automat ed code = 2893415874) message] The system which generated this result transmitted reference range : 0.0 - 10.0 /100 WBCs. The refer ence range was not u sed to interpret th is result as normal/abnormal . NRBC x10^3 (test code <0.01 See_Comment [Auto mated = 8826263003) message] The s ystem which generated this result transmitted reference range : 10*3/?L. The reference range was not used to interpret this result as normal/abnormal . GRAN MAT (NEUT) % 49.6 % (test code = 770-8) IMM GRAN % (test code 0.30 % = 4888344330) LYMPH % (test code = 38.7 % 736-9) MONO % (test code = 10.4 % 5905-5) EOS % (test code = 0.8 % 713-8) BASO % (test code = 0.2 % 706-2) GRAN MAT x10^3(ANC) 3.26 10*3/uL 1.88-7.09 (test code = 1918355898) IMM GRAN x10^3 (test <0.03 0.00-0.06 code = 1157100707) LYMPH x10^3 (test code 2.54 10*3/uL 1.32-3.29 = 731-0) MONO x10^3 (test code 0.68 10*3/uL 0.33-0.92 = 742-7) EOS x10^3 (test code = 0.05 10*3/uL 0.03-0.39 711-2) BASO x10^3 (test code <0.03 0.01-0.07 = 704-7) Lab Interpretation Abnormal (test code = 35628-3) [facility]kinLactic Acid Whole [id number] 20:24:41 Test Item Value Reference Range Interpretation Comments LACTIC ACID (test code = 1.17 mmol/L 0.50-2.20 7884087948) Lab Interpretation (test code = Normal 66413-7) [facility]inalysis2021-04-15 00:29:10 Test Item Value Reference Range Interpretation Comments APPEARANCE (test code = Clear Clear 7681186705) COLOR (test code = Yellow Yellow 0306182450) PH (test code = 4.8-8.0 8443801741) SP GRAVITY (test code = 1.003-1.030 5709343030) GLU U QUAL (test code = Normal Normal 4181824923) BLOOD (test code = Negative Negative 8713583016) KETONES (test code = Negative Negative 0336264305) PROTEIN (test code = Negative Negative 2887-8) UROBILIN (test code = Normal Normal 9515796006) BILIRUBIN (test code = Negative Negative 9590048904) NITRITE (test code = Negative Negative 3055556430) LEUK MURRAY (test code = 25/uL Negative A 1379868708) RBC/HPF (test code = See_Comment [Autom ated message] 3809148977) The system [employer] generated this result transmitted ref erence range: 0 - 3 HP F. The reference range was not used to int erpret this result as normal/abnormal . WBC/HPF (test code = See_Comment H [Autom ated message] 5926610366) The system [employer] generated this result transmitted ref erence range: 0 - 5 HP F. The reference range was not used to int erpret this result as normal/abnormal . BACTERIA (test code = Few Negative A 5265141387) MUCOUS (test code = Slight Negative LPF A 2062204923) SQ EPITH (test code = HPF 0266143084) Lab Interpretation (test Abnormal code = 88820-7) [facility] Metabolic Panel (NA, K, CL, CO2, GLUCOSE, BUN, CREATININE, CA)2020-05-26 23:56:22 Test Item Value Reference Range Interpretation Comments NA (test code = 140 mmol/L 135-145 4954420261) K (test code = 3.8 mmol/L 3.5-5.0 6673227872) CL (test code = 104 mmol/L 98-108 9343238325) CO2 TOTAL (test code 27 mmol/L 23-31 = 4478705131) AGAP (test code = 2-16 2078299210) BUN (test code = 15 mg/dL 7-23 1162262716) GLUCOSE (test code = 95 mg/dL 70-110 3414867515) CREATININE (test code 0.60 mg/dL 0.50-1.04 = 5586462622) CALCIUM (test code = 9.0 mg/dL 8.6-10.6 1069923170) eGFR (test code = mL/min/1.73m2 7731754307) ANTHONY (test code = ANTHONY) Association of [...] or urine or abnormalities in imaging tests). [facility] Function [facility] (ALB, T.PRO, BILI T, BU/BC, ALT, AST, ALK PHOS)2020-05-26 23:55:42 Test Item Value Reference Range Interpretation Comments TOTAL BILI (test code = 4912388714) 0.3 mg/dL 0.1-1.1 BILI UNCON (test code = 9194793218) 0.2 mg/dL 0.1-1.1 BILI CONJ (test code = 4785174932) 0.0 mg/dL 0.0-0.3 T PROTEIN (test code = 3092724450) 7.5 g/dL 6.3-8.2 ALBUMIN (test code = 3704951619) 4.5 g/dL 3.5-5.0 ALK PHOS (test code = 2240999821) 165 U/L 34-122 H ALTv (test code = 1742-6) 110 U/L 5-35 H AST(SGOT) (test code = 1328412685) 66 U/L 13-40 H Lab Interpretation (test code = Abnormal 13795-6) [facility] with Jyzikjwamlis9032-99-59 23:42:55 Test Item Value Reference Range Interpretation Comments WBC (test code = See_Comment [Automated 1990-2) message] The sy stem which generated this [...] RDW-SD (test code = 48.4 fL 39.0-49.9 00065-8) RDW-CV (test code = 13.6 % 12.0-15.5 788-0) PLT (test code = See_Comment [Automated 777-3) message] The sy stem which generated this result transmitted reference range : 166 - 358 10*3/ ?L. The reference r miky was not used to interpret this result as normal/abnormal . MPV (test code = 9.8 fL 9.5-12.9 52910-3) NRBC/100 WBC (test See_Comment [Automat ed code = 1380912335) message] The system which generated this result transmitted reference range : 0.0 - 10.0 /100 WBCs. The refer ence range was not u sed to interpret th is result as normal/abnormal . NRBC x10^3 (test code <0.01 See_Comment [Auto mated = 9728155930) message] The s ystem which generated this result transmitted reference range : 10*3/?L. The reference range was not used to interpret this result as normal/abnormal . GRAN MAT (NEUT) % 61.8 % (test code = 770-8) IMM GRAN % (test code 0.70 % = 2169518863) LYMPH % (test code = 27.3 % 736-9) MONO % (test code = 9.0 % 5905-5) EOS % (test code = 1.0 % 713-8) BASO % (test code = 0.2 % 706-2) GRAN MAT x10^3(ANC) 5.01 10*3/uL 1.88-7.09 (test code = 3009007807) IMM GRAN x10^3 (test 0.06 10*3/uL 0.00-0.06 code = 6963343325) LYMPH x10^3 (test code 2.22 10*3/uL 1.32-3.29 = 731-0) MONO x10^3 (test code 0.73 10*3/uL 0.33-0.92 = 742-7) EOS x10^3 (test code = 0.08 10*3/uL 0.03-0.39 711-2) BASO x10^3 (test code <0.03 0.01-0.07 = 704-7) Lab Interpretation Abnormal (test code = 16835-5) [facility]inalysis2021-04-01 19:25:57 Test Item Value Reference Range Interpretation Comments APPEARANCE (test code = Clear Clear 1432086520) COLOR (test code = Yellow Yellow 2027472685) PH (test code = 4.8-8.0 1238270506) SP GRAVITY (test code = >1.060 1.003-1.030 H 4628301896) GLU U QUAL (test code = Normal Normal 3729021797) BLOOD (test code = Negative Negative 7263846424) KETONES (test code = Negative Negative 1485501665) PROTEIN (test code = Negative Negative 2887-8) UROBILIN (test code = Normal Normal 3694693375) BILIRUBIN (test code = Negative Negative 6017049739) NITRITE (test code = Negative Negative 6921821170) LEUK MURRAY (test code = 25/uL Negative A 3950240945) RBC/HPF (test code = See_Comment [Autom ated message] 2975529239) The system [employer] generated this result transmitted ref erence range: 0 - 3 HP F. The reference range was not used to int erpret this result as normal/abnormal . WBC/HPF (test code = See_Comment [Autom ated message] 8693775494) The system [employer] generated this result transmitted ref erence range: 0 - 5 HP F. The reference range was not used to int erpret this result as normal/abnormal . BACTERIA (test code = Few Negative A 4555719165) MUCOUS (test code = Slight Negative LPF A 2450638140) SQ EPITH (test code = HPF 9571623436) Lab Interpretation (test Abnormal code = 73308-8) [facility] ABDOM[facility] PELVIS W [id number] 17:38:50CT Abdomen and Pelvis with intravenous contrast. [...] eachmeasuring 2 to [address] [facility]kin[facility]atic Function Panel (ALB, T.PRO, BILI T, BU/BC, ALT, AST, ALK PHOS)2020-05-13 17:24:50 Test Item Value Reference Range Interpretation Comments TOTAL BILI (test code = 8157377495) 0.5 mg/dL 0.1-1.1 BILI UNCON (test code = 1543212762) 0.2 mg/dL 0.1-1.1 BILI CONJ (test code = 1018246990) 0.0 mg/dL 0.0-0.3 T PROTEIN (test code = 7767967098) 8.0 g/dL 6.3-8.2 ALBUMIN (test code = 0337161606) 4.7 g/dL 3.5-5.0 ALK PHOS (test code = 2824292954) 142 U/L 34-122 H ALTv (test code = 1742-6) 29 U/L 5-35 AST(SGOT) (test code = 7565367979) 41 U/L 13-40 H Lab Interpretation (test code = Abnormal 72011-5) [facility] Metabolic [facility] (NA, K, CL, CO2, GLUCOSE, BUN, CREATININE, CA)2020-05-13 17:24:49 Test Item Value Reference Range Interpretation Comments NA (test code = 139 mmol/L 135-145 5755184810) K (test code = 3.9 mmol/L 3.5-5.0 6533967575) CL (test code = 111 mmol/L 98-108 H 9197304798) CO2 TOTAL (test code = 19 mmol/L 23-31 L 3171424330) AGAP (test code = 2-16 7562932084) BUN (test code = 15 mg/dL 7-23 4222803746) GLUCOSE (test code = 123 mg/dL 70-110 H 8849973365) CREATININE (test code = 0.83 mg/dL 0.50-1.04 1534152566) CALCIUM (test code = 9.5 mg/dL 8.6-10.6 2679391035) eGFR (test code = mL/min/1.73m2 6787646649) ANTHONY (test code = ANTHONY) Association of [...] tests). Lab Interpretation Abnormal (test code = 17840-8) [facility]kinLipase Olgfj6384-10-26 17:24:49 Test Item Value Reference Range Interpretation Comments LIPASE (test code = 4223122376) 25 U/L 0-220 Lab Interpretation (test code = Normal 52508-4) [facility] with Aqqozlpwuqig0513-69-83 17:06:22 Test Item Value Reference Range Interpretation Comments WBC (test code = See_Comment [Automated 2890-2) message] The sy stem which generated this [...] RDW-SD (test code = 46.4 fL 39.0-49.9 49453-7) RDW-CV (test code = 13.3 % 12.0-15.5 788-0) PLT (test code = See_Comment [Automated 777-3) message] The sy stem which generated this result transmitted reference range : 166 - 358 10*3/ ?L. The reference r miky was not used to interpret this result as normal/abnormal . MPV (test code = 10.4 fL 9.5-12.9 73529-1) NRBC/100 WBC (test See_Comment [Automat ed code = 3233302331) message] The system which generated this result transmitted reference range : 0.0 - 10.0 /100 WBCs. The refer ence range was not u sed to interpret th is result as normal/abnormal . NRBC x10^3 (test code <0.01 See_Comment [Auto mated = 7573649598) message] The s ystem which generated this result transmitted reference range : 10*3/?L. The reference range was not used to interpret this result as normal/abnormal . GRAN MAT (NEUT) % 69.6 % (test code = 770-8) IMM GRAN % (test code 0.40 % = 9850987541) LYMPH % (test code = 22.4 % 736-9) MONO % (test code = 7.1 % 5905-5) EOS % (test code = 0.4 % 713-8) BASO % (test code = 0.1 % 706-2) GRAN MAT x10^3(ANC) 5.65 10*3/uL 1.88-7.09 (test code = 6972386010) IMM GRAN x10^3 (test 0.03 10*3/uL 0.00-0.06 code = 5036894624) LYMPH x10^3 (test code 1.82 10*3/uL 1.32-3.29 = 731-0) MONO x10^3 (test code 0.58 10*3/uL 0.33-0.92 = 742-7) EOS x10^3 (test code = 0.03 10*3/uL 0.03-0.39 711-2) BASO x10^3 (test code <0.03 0.01-0.07 = 704-7) Lab Interpretation Abnormal (test code = 36219-6) [facility] ABDOMEN [id number] 18:12:20 Status post cholecystectomy. Mild extra hepatic [...] dilatation in the mid and distal aorta. [facility], Radiant Results Inft User - 12/08/2019 1:13 [...] can been expected finding inthe post cholecystectomy setting.[facility]XR CHE[facility] 1 VW 2019-12-08 18:03:08Findings and Impression: Clear lungs. No pleural effusion or pneumothorax.Heart size is normal. No acute osseous abnormality. PORTABLE CHEST RADIOGRAPH History: RUQ pain Comparison: 12/25/2018 TECHNIQUE: AP view of the chest. [facility], Radiant Results Inft User - 12/08/2019 1:04 PM CDTPORTABLE CHEST RADIOGRAPHHistory: RUQ pain Comparison: 12/25/2018TECHNIQUE: AP view of the chest.IMPRESSIONFindings and Impression: Clear lungs. No pleural effusion or pneumothorax.Heart size is normal. No acute osseousabnormality.[facility]kinCOMP. METABOLIC PANEL (96053)2019-12-08 17:36:00 Test Item Value Reference Range Interpretation Comments NA (test code = 139 mmol/L 135-145 6156115726) K (test code = 4.2 mmol/L 3.5-5 9221849096) CL (test code = 102 mmol/L 98-108 2952030329) CO2 TOTAL (test code = 27 mmol/L 23-31 2671800640) AGAP (test code = 2-16 8479483519) BUN (test code = 20 mg/dL 7-23 6081987179) GLUCOSE (test code = 105 mg/dL 70-110 2354752707) CREATININE (test code = 1.01 mg/dL 0.5-1.04 3076768839) TOTAL BILI (test code = 0.6 mg/dL 0.1-1.6 8476192943) CALCIUM (test code = 9.9 mg/dL 8.6-10.6 8763593062) T PROTEIN (test code = 8.5 g/dL 6.3-8.2 H 9740253437) ALBUMIN (test code = 4.5 g/dL 3.5-5 9562470454) ALK PHOS (test code = 118 U/L 34-122 3881044346) ALTv (test code = 32 U/L 5-35 1742-6) AST(SGOT) (test code = 39 U/L 13-40 5052032268) eGFR Calculation mL/min/1.73m2 (Non-) (test code = 2937637036) eGFR Calculation mL/min/1.73m2 () (test code = 7846373930) ANTHONY (test code = ANTHONY) Association of [...] tests). Lab Interpretation Abnormal (test code = 45656-8) [facility]kinURINALYSIS2020-10-26 17:20:00 Test Item Value Reference Range Interpretation Comments APPEARANCE (test code = Hazy Clear A 5458652827) COLOR (test code = Yellow Yellow 2278707838) PH (test code = 4.8-8.0 8118312798) SP GRAVITY (test code = 1.003-1.030 H 6854651034) GLU U QUAL (test code = Normal Normal 1755173868) BLOOD (test code = Negative Negative 0596690060) KETONES (test code = Negative Negative 4751073220) PROTEIN (test code = 30 mg/dL Negative A 2887-8) UROBILIN (test code = Normal Normal 2336058883) BILIRUBIN (test code = Negative Negative 3891753015) NITRITE (test code = Negative Negative 5331839872) LEUK MURRAY (test code = 75/uL Negative A 1634098131) RBC/HPF (test code = See_Comment [Autom ated message] 3906840788) The system [employer] generated this result transmitted ref erence range: 0 - 3 HP F. The reference range was not used to int erpret this result as normal/abnormal . WBC/HPF (test code = See_Comment [Autom ated message] 7846117616) The system [employer] generated this result transmitted ref erence range: 0 - 5 HP F. The reference range was not used to int erpret this result as normal/abnormal . BACTERIA (test code = Negative Negative 0200765599) MUCOUS (test code = Slight Negative LPF A 2963417859) SQ EPITH (test code = HPF 8703092056) HYAL CAST (test code = See_Comment [Aut omated message] 7483908126) The system [employer] generated this result transmitted ref erence range: <=2 LPF. The reference range was not used to int erpret this result as normal/abnormal . Lab Interpretation (test Abnormal code = 68664-8) [facility] WITH [id number] 17:05:00 Test Item Value Reference Range Interpretation [...] RDW-SD (test code = 43.5 fL 39-49.9 17611-5) RDW-CV (test code = 11.9 % 12-15.5 L 788-0) PLT (test code = See_Comment [Automated 777-3) message] The sy stem which generated this result transmitted reference range : 166 - 358 10*3/ ?L. The reference r miky was not used to interpret this result as normal/abnormal . MPV (test code = 10.9 fL 9.5-12.9 52914-7) NRBC/100 WBC (test See_Comment [Automat ed code = 3210471332) message] The system which generated this result transmitted reference range : 0.0 - 10.0 /100 WBCs. The refer ence range was not u sed to interpret th is result as normal/abnormal . NRBC x10^3 (test code <0.01 See_Comment [Auto mated = 7317102003) message] The s ystem which generated this result transmitted reference range : 10*3/?L. The reference range was not used to interpret this result as normal/abnormal . GRAN MAT (NEUT) % 64.8 % (test code = 770-8) IMM GRAN % (test code 0.40 % = 3548260429) LYMPH % (test code = 27.0 % 736-9) MONO % (test code = 6.5 % 5905-5) EOS % (test code = 0.9 % 713-8) BASO % (test code = 0.4 % 706-2) GRAN MAT x10^3(ANC) 4.35 10*3/uL 1.88-7.09 (test code = 8595000985) IMM GRAN x10^3 (test 0.03 10*3/uL 0-0.06 code = 2813042986) LYMPH x10^3 (test code 1.82 10*3/uL 1.32-3.29 = 731-0) MONO x10^3 (test code 0.44 10*3/uL 0.33-0.92 = 742-7) EOS x10^3 (test code = 0.06 10*3/uL 0.03-0.39 711-2) BASO x10^3 (test code 0.03 10*3/uL 0.01-0.07 = 704-7) Lab Interpretation Abnormal (test code = 03484-8) [facility] PELVIS WO [id number] 16:59:351. ?Nonobstructive left nephrolithiasis. 2. ?No radiographic [...] PELVISLiver: Hepatic dome is not fully within nxfth-uf-szlc. No focal he paticlesions identified within limits [...] PELVISLiver: Hepatic dome is not fully within itbxm-vu-hjyp. No focal hepaticlesions identified within limits of [...] in the left lower lobe, thoughtto be unchanged.[facility] POCT [id number] 16:12:00 Test Item Value Reference Range Interpretation Comments POCT PREG (test code = 1605) negative On board controls acceptable with present C Line (test code = 3574) POCT PREG LOT # (test code = 3575) [id number] POCT PREG TEST DATE (test 05/12/2021 code = 3576) Lab Interpretation (test code = Normal 21271-5) [facility]POCT URINALYSIS, [id number] 15:17:00 Test Item Value Reference Range Interpretation [...] 3267) Lab Interpretation (test code Abnormal = 63576-5) [facility]POCT URINALYSIS, [id number] 15:17:00 Test Item Value Reference Range Interpretation [...] 3267) Lab Interpretation (test code Abnormal = 95529-2) [facility]MR, BRAIN, [id number] 19:53:00With seizure protocolThin coronal cuts especially around [...] MDReport Verified Date/Time: 10/25/2018 19:53:41 Reading Location: [facility] C013V Neuro Reading Room EEG AWAKE AND [id number] 19:37:00For STAT EEG- after 5 PM weekdays, weekends and holidays, page the on-call EEG TechReason for exam:-& gt;altered mental statusDATE OF EXAMINATION: 10/25/18[facility] NO: [id number] 10: R56.9CPT CODE: 99221MBMLIAEPQ SUMMARY:This is a digital EEG recorded with 32 input channels on a [employer] system and then reviewed with bipolar and [...] seizure for the symptom(s) of interest. HEMOGLOBIN [id number] 14:02:00 Test Item Value Reference Range Interpretation Comments HEMOGLOBIN A1C (BEAKER) (test code = 5.6 % 4.3-6.1 368) TSH/FREE T4 IF [id number] 06:11:00 Test Item Value Reference Range Interpretation Comments THYROID STIMULATING HORMONE 3.63 uIU/mL 0.35-4.94 (BEAKER) (test code = 772) VITAMIN B12 AND [id number] 06:11:00 Test Item Value Reference Range Interpretation Comments VITAMIN B12 (BEAKER) (test code = 272 pg/mL 213-816 774) FOLATE (BEAKER) (test code = 362) 9.4 ng/mL >=7.0 [id number] 05:58:00 Test Item Value Reference Range Interpretation Comments PHOSPHORUS (BEAKER) (test code = 3.6 mg/dL 2.3-4.7 604) [id number] 05:58:00 Test Item Value Reference Range Interpretation Comments MAGNESIUM (BEAKER) (test code = 2.1 mg/dL 1.6-2.6 627) BASIC METABOLIC [id number] 05:58:00 Test Item Value Reference Range Interpretation [...] NOT APPLICABLE FOR DIALYSIS PATIEN TS. LIPID [id number] 05:58:00 Test Item Value Reference Range Interpretation [...] 130-159 High 160-189 Very High >=190HEPATIC FUNCTION [id number] 05:58:00 Test Item Value Reference Range Interpretation [...] (test code = 413) CT, BRAIN, WITHOUT [id number] 00:33:00FINAL REPORT EXAM: CT, BRAIN, WITHOUT CONTRAST [...] CT of the head. Signed: Dionicio Salazar Verified Date/Time: 10/25/2018 00:33:20 Reading Location: [facility] C013V Neuro Reading Room POCT-GLUCOSE [id number] 23:26:00 Test Item Value Reference Range Interpretation Comments POC-GLUCOSE METER 77 mg/dL 70-110 TESTED AT [facility] 67 (BEAKER) (test code = [facility] [address] 1538) SCREEN, [id number] 18:06:00 Test Item Value Reference Range Interpretation Comments TEST URINE (BEAKER) (test Negative code = 583) RAPID DRUG SCREEN, [id number] 16:54:00 Test Item Value Reference Range Interpretation [...] situations. Chain of custody not maintained. Some jhyz-saa-utltvcj medications, as well as adulterants, may cause inaccurate results. Clinical correlation should be applied. A more comprehensivedrug screen or confirmation of a detected drug may be performed upon request.URINALYSIS W/ REFLEX URINE [id number] 15:45:00 Test Item Value Reference Range Interpretation [...] code = 1521) SOURCE(BEAKER) (test code = 0865) B-TYPE NATRIURETIC FACTOR (BNP)2018-10-24 15:41:00 Test Item Value Reference Range Interpretation Comments B-TYPE NATRIURETIC PEPTIDE (BEAKER) < pg/mL 0-100 (test code = 700) BASIC METABOLIC [id number] 15:41:00 Test Item Value Reference Range Interpretation [...] DATA TO CALCULA TE ESTIMATED GFR. TROPONIN [id number] 15:34:00 Test Item Value Reference Range Interpretation [...] acute neurological disease, and persistent tachyarrhythmia.HEPATIC FUNCTION [id number] 15:32:00 Test Item Value Reference Range Interpretation [...] (test code = 51 U/L 6-55 347) [id number] 15:27:00 Test Item Value Reference Range Interpretation Comments ETHANOL (BEAKER) (test code = 400) < mg/dL <=10 POCT-GLUCOSE [id number] 15:15:00 Test Item Value Reference Range Interpretation Comments POC-GLUCOSE METER 82 mg/dL 70-110 TESTED AT [facility] 6720 (BEAKER) (test code = [place] [address] 1538) RAD, CHEST, 1 VIEW, NON [id number] 15:13:00Reason for exam:->sobShould this be performed at the bedside?->YesFINAL REPORT INDICATION: sob COMPARISON: None TECHNIQUE: Single frontal view of the chest. FINDINGS: Lungs and pleura: Clear lungs. No effusion.Heart and mediastinum: Normal heart size. Unremarkable mediastinal contours.Osseous structures: No acute abnormality.Other: None. IMPRESSION: No acute intrathoracic abnormality. Signed: JR Escobar Robert MDReport Verified Date/Time: 10/24/2018 15:13:38 Reading Location: [facility] Radiology Reading Room CBC W/PLT COUNT & AUTO [id number] 15:06:00 Test Item Value Reference Range Interpretation [...] code = 2801) CT, SPINE, CERVICAL, WO [id number] 15:06:00Reason for exam:->r/o c- spine injuryIs the [...] curvature without evidence for fracture.Signed: Cornelius Selby Verified Date/Time: 10/24/2018 15:06:41 Reading Location: [place] [id number] Neuro Reading Room , BRAIN/STROKE [id number] 14:38:00Reason for exam:->r/o cvaIs the patient ?->UnknownWhat [...] time of this dictation Signed: Karen Shirley Verified Date/Time: 10/24/2018 14:38:49 Reading Location: [facility] [id number] Consult Reading Room "
[2021-04-26] MEDS ORDERED: ONDANSETRON 4 MG/2 ML VIAL ONE (10:03)
[2021-04-26] MEDS ORDERED: KETOROLAC 30 MG/ML INJ ONE (10:03)
[2021-04-26] MEDS ORDERED: NA CHLORIDE 0.9% 1,000 ML ONE (10:03)
[2021-04-26 10:30] LABS: Absolute Lymphocytes (CBC) 2.5 K/uL (0.7-4.9); Hematocrit 35.9 % (36.0-45.0); Lymphocytes % 29.1 % (15.3-44.8); RBC Red Blood Cell Count 4.18 M/uL (3.86-4.86)
[2021-04-26 10:54] LABS: Albumin 4.1 g/dL (3.4-5.0); Bilirubin Total 0.3 mg/dL (0.2-1.0); Potassium 3.2 mmol/L (3.5-5.1); Protein, Total 9.1 g/dL (6.4-8.2)
--- NOTE | 2021-04-26 10:57 | RAD REPORT ---
EXAM DESCRIPTION: CT - Abdomen Pelvis Wo Contrast - 04/26/2021 10:22 am CLINICAL HISTORY: Abdominal pain COMPARISON: CT chest [address] abdomen 1999 TECHNIQUE: Computed axial tomography of the abdomen and pelvis was obtained. IV and oral contrast we re not requested. All CT scans are performed using dose optimization technique as appropriate and may include automated exposure control or mA/KV adjustment according to patient size. FINDINGS: The evaluation of solid organs, vessels and bowel is limited secondary to the lack of con trast administration. A 1.4 centimeter cavitary opacity within the left lateral lower lobe. On the prior CT chest the opaci ty measured 3.3 centimeters but was not cavitary. Additional mild right lower lobe opacities have imp roved The liver, spleen, pancreas, and adrenals appear grossly normal. Cholecystectomy. Prominence of common bile duct. Multiple, bilateral small renal calculi. No hydronephrosis. A ureteral calculus is not seen. Small umbilical hernia Spondylolysis L4 and L5. Slight anterior subluxation L5 on S1 The appendix is mildly enlarged. However, no stranding is seen within adjacent. Hysterectomy. No evidence of diverticulitis IMPRESSION: Nonobstructing bilateral renal calculi Mild enlargement of the appendix. However, there is no stranding within the adjacent fat. I suspect t his is a normal finding for the patient but should be correlated clinically. Prominence of the common bile duct often is physiologic in a patient status post cholecystectomy. Thi s should be correlated clinically and with appropriate lab values A 1.4 centimeter cavitary opacity within the left lower lobe likely the sequela of previous infection . Perhaps this represents TB/fungal or MEJIA
--- NOTE | 2021-04-26 11:24 | ER ---
Nurse's Notes [facility] Name: Mckenna Avila Age: 45 yrs Sex: Female : 1975 Arrival Date: 04/26/2021 Time: 09:43 Bed 13 Private MD: Diagnosis: Lower abdominal pain, unspecified;Anorexia;Right flank pain Presentation: 04/26 09:51 Chief complaint: Patient states: "I have severe kidney and stomach pain and n/v." Pt ab2 states pain started last night, but has been having n/v for a week. Pt c/o R flank pain and RUQ and RLQ pain. Pt states she hasn't produced urine in over 24 hours. Coronavirus screen: Vaccine status: Patient reports being unvaccinated. Client denies travel out of the [place] in the last 14 days. nausea, vomiting. Client presents with at least one sign or symptom that may indicate coronavirus-19. Standard/surgical mask placed on the client. Provider contacted for isolation considerations. Ebola Screen: Patient negative for fever greater than or equal to 101.5 degrees Fahrenheit, and additional compatible Ebola Virus Disease symptoms Patient denies exposure to infectious person. Patient denies travel to an Ebola-affected area in the 21 days before illness onset. No symptoms or risks identified at this time. Initial Sepsis Screen: Does the patient meet any 2 criteria? HR > 90 bpm. Does the patient have a suspected source of infection? No. Patient's initial sepsis screen is negative. Initial Sepsis Screen: Does the patient meet any 2 criteria? No. Patient's initial sepsis screen is negative. Does the patient have a suspected source of infection?. Risk Assessment: Do you want to hurt yourself or someone else? Patient reports no desire to harm self or others. Onset of symptoms is unknown. 09:51 Method Of Arrival: Ambulatory ab2 09:51 Acuity: KEIKO 3 ab2 Triage Assessment: 09:54 General: Appears in no apparent distress. uncomfortable, Behavior is calm, cooperative, ab2 appropriate for age. Pain: Complains of pain in right low back Pain radiates to right upper quadrant and right lower quadrant Pain currently is 8 out of 10 on a pain scale. Quality of pain is described as sharp. GI: Reports nausea, vomiting. : Reports inability to void, since over 24 hours. Musculoskeletal: Range of motion: intact in all extremities. RN PACU: 15:36 LMP N/A - Post-menopause ap3 Historical: - Allergies: 09:49 Omnicef; ab2 09:49 Ciprofloxacin; ab2 - PMHx: 09:49 chrons disease; Kidney stones; Rheumatoid arthritis; ab2 - PSHx: 09:49 Hysterectomy; ab2 - Immunization history:: Adult Immunizations up to date, Client reports having NOT received the Covid vaccine. - Social history:: Smoking status: Patient denies any tobacco usage or history of. Screenin:21 Abuse screen: Denies threats or abuse. Nutritional screening: No deficits noted. ap3 Tuberculosis screening: No symptoms or risk factors identified. 15:36 Fall Risk No fall in past 12 months (0 pts). ap3 Assessment: 10:20 General: Appears in no apparent distress. Behavior is calm, cooperative, appropriate ap3 for age. Pain: Complains of pain in right lower quadrant and right upper quadrant and right low back and right mid back. Neuro: Level of Consciousness is awake, alert, obeys commands, Oriented to person, place, time, situation, Moves all extremities. Gait is steady, Speech is normal. Respiratory: Airway is patent Respiratory effort is even, unlabored, Respiratory pattern is regular, symmetrical. 13:21 General: attempted to call report to the 2nd floor. Giovana informed nurse they are ap3 going to be changing the assigned room due to "TB precautions" instated by the charge nurse. . Vital Signs: 09:51 BP 164 / 118; Pulse 119; Resp 20; Temp 97.6(TE); Pulse Ox 98% on R/A; Weight 74.84 kg; ab2 Height 5 ft. 7 in. (170.18 cm); Pain 8/10; 11:11 BP 131 / 102; Pulse 103; Pulse Ox 99% ; ap3 09:51 Body Mass Index 25.84 (74.84 kg, 170.18 cm) ab2 ED Course: 09:43 Patient arrived in ED. mr 09:44 Willie Jay DO is Attending Physician. ms3 09:54 Triage completed. ab2 09:54 Arm band placed on right wrist. ab2 09:55 Shireen Sims RN is Primary Nurse. ap3 10:17 Inserted saline lock: 22 gauge in right antecubital area, using aseptic technique. ap3 Blood collected. 10:21 CT Abd/Pelvis - Without Contrast In Process Unspecified. EDMS 10:21 Patient has correct armband on for positive identification. Bed in low position. Call ap3 light in reach. Side rails up X 1. Pulse ox on. NIBP on. Door closed. Noise minimized. 11:22 Jose Love MD is Hospitalizing Provider. ms3 12:05 Admitting physician to see patient. ap3 12:59 Consulted physician to see patient. ap3 14:20 First set of blood cultures drawn by ED staff. ap3 14:35 Second set of blood cultures drawn by ED staff. ap3 15:35 No provider procedures requiring assistance completed. Patient admitted, IV remains in ap3 place. Administered Medications: 10:20 Drug: Zofran (Ondansetron) 4 mg Route: IVP; Site: right antecubital; ap3 11:35 Follow up: Response: Nausea is decreased ap3 10:20 Drug: Ketorolac 10 mg Route: IVP; Site: right antecubital; ap3 11:34 Follow up: Response: Pain is unchanged, physician notified ap3 12:59 Follow up: Response: No adverse reaction ap3 10:27 Drug: NS 0.9% 1000 ml Route: IV; Rate: 1 bolus; Site: right antecubital; ap3 14:40 Follow up: Response: No adverse reaction; IV Status: Completed infusion; IV Intake: ap3 1000ml 11:34 Drug: Phenergan (promethazine) 25 mg Route: IM; Site: right gluteus; ap3 12:59 Follow up: Response: No adverse reaction ap3 11:34 Drug: morphine 4 mg Route: IVP; Site: right antecubital; ap3 12:58 Follow up: Response: No adverse reaction ap3 14:30 Drug: Rocephin (cefTRIAXone) 1 grams Route: IV; Rate: 1 calculated rate; Site: right ap3 antecubital; Intake: 14:40 IV: 1000ml; Total: 1000ml. ap3 Outcome: 11:23 Decision to Hospitalize by Provider. ms3 15:35 Admitted to Med/surg accompanied by tech, via wheelchair, room 222, with chart. ap3 15:35 Condition: good 15:35 Discharge instructions given to patient, Instructed on the need for admit, Demonstrated understanding of instructions. 15:36 Patient left the ED. ap3 Signatures: Dispatcher [employer] Nikki Arenas Amanda RN RN ap3 Willie Jay, DO TYLER ms3 Piotr Alcaraz ab2 Corrections: (The following items were deleted from the chart) 09:51 09:49 PMHx: kidney problems; ab2 ab2
--- NOTE | 2021-04-26 11:24 | EDPHYS ---
Physician Documentation [facility] Name: Mckenna Avila Age: 45 yrs Sex: Female : 1975 Arrival Date: 04/26/2021 Time: 09:43 Bed 13 Private MD: ED Physician Willie Jay HPI: 04/26 09:50 This 45 yrs old Female presents to ER via Unassigned with complaints of Back ms3 Pain, Abdominal Pain, Nausea/Vomiting. 09:50 The patient presents with pain that is acute, with no known mechanism of injury. The ms3 symptoms are located in the right mid back. Onset: The symptoms/episode began/occurred last night. The pain does not radiate. Associated signs and symptoms: Pertinent positives: nausea, vomiting, Pertinent negatives: fever, nausea. Modifying factors: The patient symptoms are alleviated by nothing, the patient symptoms are aggravated by nothing. 45-year-old female with past medical history of kidney stones, pyelonephritis, Crohn's, rheumatoid arthritis, temporal arteritis, methotrexate induced lung disease presents for right-sided back pain that began last night that she rates an 8/10 and describes as stabbing. Patient denies alleviating or inciting factors. Patient endorses nausea and vomiting. Patient denies fevers, chills, diarrhea, or sick contacts.. 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 - Social history:: Smoking status: Patient denies any tobacco usage or history of. ROS: 09:50 Constitutional: Negative for fever, and chills. Eyes: Negative for injury, pain, ms3 redness, and discharge, Neck: Negative for injury, pain, and swelling, Cardiovascular: Negative for chest pain, and palpitations. Respiratory: Negative for shortness of breath, cough, wheezing, and pleuritic chest pain, MS/Extremity: Negative for injury and deformity, Skin: Negative for injury, rash, and discoloration, Neuro: Negative for headache, weakness, numbness, tingling. 09:50 Abdomen/GI: Positive for nausea, vomiting. 09:50 Back: Positive for flank pain, on the right. 09:50 All other systems are negative. Exam: 09:50 Constitutional: This is a well developed, well nourished patient who is awake, alert, ms3 and in no acute distress. Head/Face: Normocephalic, atraumatic. Eyes: Pupils equal round and reactive to light, extra-ocular motions intact. Lids and lashes normal. Conjunctiva and sclera are non-icteric and not injected. Periorbital areas with no swelling, redness, or edema. Neck: Trachea midline, no cervical lymphadenopathy. Supple, full range of motion without nuchal rigidity, or vertebral point tenderness. No Meningismus. Chest/axilla: Normal chest wall appearance and motion. Nontender with no deformity. Respiratory: Lungs have equal breath sounds bilaterally, clear to auscultation and percussion. No rales, rhonchi or wheezes noted. No increased work of breathing, no retractions or nasal flaring. Abdomen/GI: Soft, non-tender, with normal bowel sounds. No distension or tympany. No guarding or rebound. No evidence of tenderness throughout. Skin: Warm, dry with normal turgor. Normal color with no rashes, no lesions, and no evidence of cellulitis. MS/ Extremity: Pulses equal, no cyanosis. Neurovascular intact. Full, normal range of motion. Psych: Awake, alert, with orientation to person, place and time. Behavior, mood, and affect are within normal limits. 09:50 Cardiovascular: Rate: tachycardic, Rhythm: regular, Heart sounds: normal, normal S1and S2. 09:50 Back: pain, that is moderate, of the right mid back, ROM is normal, normal spinal alignment noted, CVA tenderness, that is moderate, is noted on the right. Vital Signs: 09:51 BP 164 / 118; Pulse 119; Resp 20; Temp 97.6(TE); Pulse Ox 98% on R/A; Weight 74.84 kg; ab2 Height 5 ft. 7 in. (170.18 cm); Pain 8/10; 11:11 BP 131 / 102; Pulse 103; Pulse Ox 99% ; ap3 09:51 Body Mass Index 25.84 (74.84 kg, 170.18 cm) ab2 MDM: 09:50 Differential diagnosis: Pyelonephritis Kidney stone vs muscle spasm. ms3 09:56 Patient medically screened. ms3 11:24 ED course: Discussed case with Dr Peres. No need for abx at this time. Hydrate and ms3 place in obs with the hospitalist service. Will likely repeat CT tomorrow.. 11:56 Data reviewed: vital signs, nurses notes, lab test result(s), radiologic studies, CT ms3 scan. Data interpreted: Pulse oximetry: on room air is 99 %. Counseling: I had a detailed discussion with the patient and/or guardian regarding: the historical points, exam findings, and any diagnostic results supporting the discharge/admit diagnosis, lab results, radiology results, the need for further work-up and treatment in the hospital. ED course: Discussed case with Dr Love. He accepts patient as observation. Patient agrees/ understands plan for observation. Patient remains in stable condition at this time. All questions were answered.. 04/26 09:50 Order name: CBC with Diff; Complete Time: 10:37 ms3 04/26 09:50 Order name: CMP; Complete Time: 10:59 ms3 04/26 09:50 Order name: Lipase; Complete Time: 10:59 ms3 04/26 09:50 Order name: Urine Microscopic Only; Complete Time: 13:59 ms3 04/26 12:03 Order name: SARS-COV-2 RT PCR; Complete Time: 13:59 EDMS 04/26 09:50 Order name: CT Abd/Pelvis - Without Contrast; Complete Time: 10:59 ms3 04/26 12:20 Order name: C-Reactive Protein; Complete Time: 13:59 EDMS 04/26 12:20 Order name: Procalcitonin; Complete Time: 13:59 EDMS 04/26 12:20 Order name: Sedimentation Rate, Westergren; Complete Time: 13:59 EDMS 04/26 12:45 Order name: Urine Dipstick-Ancillary; Complete Time: 13:59 EDMS 04/26 14:03 Order name: Blood Culture Adult (2) ms3 04/26 09:50 Order name: IV Saline Lock; Complete Time: 10:19 ms3 04/26 09:50 Order name: Labs collected and sent; Complete Time: 10:19 ms3 04/26 09:50 Order name: Urine Test (obtain specimen); Complete Time: 14:29 ms3 04/26 11:56 Order name: Consult Surgery-Doug Peres MD (GENERAL SURGERY) pm1 04/26 12:21 Order name: CONS Physician Consult EDMS Administered Medications: 10:20 Drug: Zofran (Ondansetron) 4 mg Route: IVP; Site: right antecubital; ap3 11:35 Follow up: Response: Nausea is decreased ap3 10:20 Drug: Ketorolac 10 mg Route: IVP; Site: right antecubital; ap3 11:34 Follow up: Response: Pain is unchanged, physician notified ap3 12:59 Follow up: Response: No adverse reaction ap3 10:27 Drug: NS 0.9% 1000 ml Route: IV; Rate: 1 bolus; Site: right antecubital; ap3 14:40 Follow up: Response: No adverse reaction; IV Status: Completed infusion; IV Intake: ap3 1000ml 11:34 Drug: Phenergan (promethazine) 25 mg Route: IM; Site: right gluteus; ap3 12:59 Follow up: Response: No adverse reaction ap3 11:34 Drug: morphine 4 mg Route: IVP; Site: right antecubital; ap3 12:58 Follow up: Response: No adverse reaction ap3 14:30 Drug: Rocephin (cefTRIAXone) 1 grams Route: IV; Rate: 1 calculated rate; Site: right ap3 antecubital; Disposition Summary: 04/26/21 11:23 Hospitalization Ordered Hospitalization Status: Observation ms3 Provider: Jose Love ms3 Location: Telemetry/MedSurg (observation) ms3 Condition: Stable ms3 Problem: new ms3 Symptoms: are unchanged ms3 Bed/Room Type: Standard ms3 Room Assignment: 222(04/26/21 14:59) bd Diagnosis - Lower abdominal pain, unspecified ms3 - Anorexia ms3 - Right flank pain ms3 Forms: - Medication Reconciliation Form ms3 - SBAR form ms3 Signatures: Dispatcher [employer] EDMS Tere Shannon Diana, RN RN dw Prokisch, Amanda, RN RN ap3 Willie Jay DO DO ms3 Bleininger, Piotr ab2 Corrections: (The following items were deleted from the chart) 09:51 09:49 PMHx: kidney problems; ab2 ab2 12:03 11:18 COVID 19 CPL+.BRZ ordered. EDMS EDMS 12:56 11:23 ms3 dw 13:27 12:56 209 dw bd 14:59 13:27 bd dw 14:59 14:59 222 dw bd
[2021-04-26] MEDS ORDERED: PROMETHAZINE INJ 25 MG/ML AMP ONE (11:30)
[2021-04-26] MEDS ORDERED: MORPHINE 4 MG/ML SYR ONE ×2 (11:30→14:00)
[2021-04-26] MEDS ORDERED: MORPHINE 4 MG/ML SYR IV PRN (12:25)
--- NOTE | 2021-04-26 12:26 | P.HP ---
Certification for Inpatient Patient admitted to: Observation With expected LOS: <2 Midnights Practitioner: I am a practitioner with admitting privileges, knowledge of patient current condition, hospital course, and medical plan of care. Services: Services provided to patient in accordance with Admission requirements found in Title 42 Section 412.3 of the Code of Federal Regulations Patient History Date of Service: 04/26/21 Reason for admission: RLQ pain, possible appendicitis History of Present Illness: 45yo F, PMH: Crohn's disease, RA, prior kidney stones, UTIs, bilateral lower extremity DVTs Presents to the ED with 1 day of severe right back pain that radiates to the right lower quadrant. Pain began last night. Reports feeling like low-grade temperature and chills as well. States over the last 2 weeks she has not been feeling well, with some intermittent nausea. Over the last 3 days, she has been more nauseous, unable to keep anything but water down. Denies any dysuria, no change in urinary habits. Reports she has been having some dark greenish stool, no diarrhea, no melena. No recent changes in any of her medications. She reports she was diagnosed with bilateral DVTs on 02/01, currently on xarelto. In the ED, patient was noted be afebrile, no leukocytosis, found to have moderatesevere tenderness in the right lower quadrant, and right flank area. CT abdomen/pelvis showed a slightly enlarged appendix without any surrounding stranding/inflammatory changes. ED physician consulted general surgery, recommended observation, hold antibiotics, possibly repeat CT in AM. Allergies cefdinir [From Omnicef] Allergy (Verified 07/09/20 10:42) Hives ciprofloxacin [From Cipro] Allergy (Verified 07/09/20 10:42) red rash and hot at iv site Home Medications: Buspirone HCl [Buspar] 10 mg PO DAILY 07/08/20 Dicyclomine HCl 20 mg PO TID 07/08/20 Erenumab-Aooe [Aimovig Autoinjector] 140 mg SQ SEECOM 07/08/20 Gabapentin 600 mg PO TID 07/08/20 LORazepam [Ativan*] 1 mg PO BEDTIME PRN 07/08/20 Promethazine Tab [Phenergan*] 25 mg PO Q6HP PRN 07/08/20 predniSONE [Prednisone] 20 mg PO DAILY 07/08/20 Famotidine [Pepcid] 1 tab PO DAILY 07/09/20 Dexlansoprazole [Dexilant] 60 mg PO AC 12/30/20 Diphenox/Atropine [Lomotil*] 1 tab PO PRN PRN 12/30/20 Folic Acid 1 mg PO 12/30/20 Hydrocodone Bit/Acetaminophen [Hydrocodon-Acetaminoph 7.5-325] 1 each PO Q6HR 12/30/20 Tizanidine HCl [Zanaflex] 4 mg PO TID 12/30/20 methocarbamoL [Methocarbamol] 500 mg PO BEDTIME 12/30/20 Albuterol Sulfate [Proair Respiclick] 90 mcg IH TID PRN #1 aer.[email or web address] 01/04/21 Mometasone/Formoterol [Dulera 200 Mcg/5 Mcg Inhaler] 2 puff IH BID #1 inhaler 01/04/21 - Past Medical/Surgical History Diabetic: No -: Crohn's disease -: Kidney Stones -: Cdiff history -: hysterectomy -: kidney stone removed -: cholecystectomy -: tubal ligation - Family History Mother -: Hypertension Father -: Hypertension - Social History Smoking Status: Never smoker Alcohol use: No CD- Drugs: Yes Caffeine use: Yes Place of Residence: Home Review of Systems 10-point ROS is otherwise unremarkable Physical Examination - Physical Exam General: Alert, Mild distress HEENT: Sclerae nonicteric Respiratory: Clear to auscultation bilaterally, Normal air movement Cardiovascular: No edema, Regular rate/rhythm, No murmurs Capillary refill: <2 Seconds Gastrointestinal: Non-distended, Tenderness (moderate-severe RLQ, R flank) Musculoskeletal: No erythema, No tenderness Integumentary: No rashes, No significant lesion Neurological: Normal speech, Normal strength at 5/5 x4 extr, Normal affect - Studies Laboratory Data (last 24 hrs) 04/26/21 10:18: Sodium 137, Potassium 3.2 L, BUN 12, Creatinine 0.94, Glucose 113 H, Total Bilirubin 0.3, AST 13 L, ALT 19, Alkaline Phosphatase 175 H, Lipase 79 04/26/21 10:18: WBC 8.50, Hgb 11.9 L, Hct 35.9 L, Plt Count 366 Assessment and Plan - Advance Directives Does patient have a Living Will: No Does patient have a Durable POA for Healthcare: No Physician Review Additional Text: Problem List RLQ pain, with R flank/back pain lung cavitary lesion, left lower lobe h/o crohn's h/o RA h/o kidney stones and UTI h/o b/l DVT, on xarelto CT: mild enlargement of appendix, cavitary lesion in lower lung surgery consulted in ED obs, NPO, IVF hold antibiotics at this time will check inflammatory markers. likely to be elevated - pt with h/o RA/crohns urine pending collection, denies other symptoms of UTI, but states she never has symptoms until she's very sick hold xarelto, start lovenox therapeutic, twice daily pain control VTE: lovenox 1mg/kg BID Code: full Dispo: home, 1-2 days Time Spent Managing Pts Care (In Minutes): 60
[2021-04-26 12:45] LABS: Urine Blood Trace-intact (Negative); Urine Glucose Negative (Negative); Urine Protein 1+ (Negative); Urine Specific Gravity >=1.030 (1.005-1.030)
[2021-04-26 12:58] LABS: Urine Bacteria >50 /HPF (<20); Urine RBC <5 /HPF (NONE SEEN)
[2021-04-26 13:00] LABS: Calcium Oxalate Crystals- Ur FEW (NONE SEEN)
[2021-04-26] MEDS ORDERED: ACETAMINOPHEN 500 MG TAB PO PRN (13:53)
[2021-04-26] MEDS ORDERED: ONDANSETRON 4 MG/2 ML VIAL IV PRN (13:53)
[2021-04-26] MEDS: PROMETHAZINE INJ 25 MG/ML AMP IV PRN ×2 (17:02→21:02)
[2021-04-26] MEDS: NA CHLORIDE 0.9% 1,000 ML IV SCH ×2 (17:02→21:53)
[2021-04-26] MEDS: HYDROMORPHONE HCL 1 MG/ML INJ IV PRN ×2 (17:02→21:01)
[2021-04-26] MEDS: ENOXAPARIN 80 MG/0.8 ML SQ SCH (21:02)
[2021-04-26] MEDS: LORazepam 2 MG/ML VIAL IV PRN (22:31)
[2021-04-26] MEDS: FAMOTIDINE 20 MG/2 ML VIAL IV PRN (22:31)
[2021-04-27] MEDS: NA CHLORIDE 0.9% 1,000 ML IV SCH ×3 (01:32→21:53)
[2021-04-27] MEDS: PROMETHAZINE INJ 25 MG/ML AMP IV PRN ×6 (01:32→22:15)
[2021-04-27] MEDS: HYDROMORPHONE HCL 1 MG/ML INJ IV PRN ×8 (01:32→22:14)
--- NOTE | 2021-04-27 02:16 | CON ---
Date of Consultation: 04/26/2021 Reason For Consultation: Abdominal pain. History Of Present Illness: This is a case of a female who came to the hospital for abdominal pain. She has this abdominal pain for about 2-3 weeks, it is over the abdominal area and also flank region . During the workup today, they found multiple findings on the common bile duct and the lungs and al so a CAT scan that shows a large appendix, but the radiologist believed that is a normal finding. [place] rgical consult was obtained to rule out the clinical findings. Clinical correlation required. The p atient states she has history of Crohn disease, seen by Dr. Adams. Right now, she is on Humira. Sh jeanine has chronic abdominal pain, she says for the last 2-3 months, she has been in the hospital on and o ff and she has history of stroke. She also was admitted for pneumonia. She also was admitted for an abdominal pain for Crohn disease. She also got admitted for DVTs, for which she is using Xarelto th is moment. This pain has been there for 2 weeks, but it goes back into months before that. There is no evidence of dysuria, hematuria, hematochezia, melena. I do not have any records of the EGDs or c olonoscopy at this moment. Past Medical History: As above. Medications: Include Humira. Allergies: REVIEWED. Family History: Noncontributory. Social History: She does not smoke. She does not drink alcohol. Review of Systems: Chronic abdominal pain, chronic coughing and chronic back pain and see H and P. Physical Examination: General: The patient is awake, alert. HEENT: Pupils are equal and reactive. Anicteric. Neck: Supple. Chest: Clear. Abdomen: Soft and depressible. No guarding or rebound. The patient has some upper abdominal mild t enderness. No Rovsing sign. No psoas signs. Rectal: Deferred. Breasts: Deferred. Pelvic: Deferred. Extremities: Good capillary refill. Laboratory Data: Blood work reviewed, shows a WBC count of 8.5. CAT scan of abdomen and pelvis revi ewed by Dr. Toro as the findings on the dilation of the common bile duct and finding on the lungs that cannot rule out previous pneumonia. But also findings on the abdomen on the sense of "mild enl argement of the appendix," however, no stranding of the adjacent fat. He suspects it is abnormal fin noe, although clinical correlation is needed. Assessment And Plan: This is a patient with Crohn disease, on medication for it, has not seen the GI doctor in a while, although her GI is still Dr. Adams. It has been like this for several months. The last 2 weeks has been little bit worse. The patient has no clinical evidence at that moment of a ppendicitis, but at the same time I have to follow recommendations of the radiologist and the way we are going to do this, we are going to recommend also to be admitted, hydration. I recommend also to have a consult with the cardiac cath rn and also repeat the CAT scan with p.o. contrast in the [facility]. DAVI/AYLIN Voice ID: [id number] Report ID: [id number]
[2021-04-27 05:34] LABS: Absolute Lymphocytes (CBC) 2.2 K/uL (0.7-4.9); Hematocrit 28.9 % (36.0-45.0); RBC Red Blood Cell Count 3.35 M/uL (3.86-4.86)
[2021-04-27 05:50] LABS: ALT/SGPT 17 U/L (12-78); AST/SGOT 14 U/L (15-37); Alkaline Phosphatase 124 U/L (45-117); BUN Blood Urea Nitrogen 9 mg/dL (7-18); Bicarbonate 22 mmol/L (21-32); Bilirubin Total 0.2 mg/dL (0.2-1.0); Glucose Level 89 mg/dL (74-106); Magnesium 1.6 mg/dL (1.8-2.4); Potassium 3.5 mmol/L (3.5-5.1); Protein, Total 6.8 g/dL (6.4-8.2); Sodium Level 141 mmol/L (136-145)
--- NOTE | 2021-04-27 06:22 | P.PN ---
Date of Service: 04/27/21 Subjective: Requiring IV pain medication, currently receiving Dilaudid Feels it helps take the edge off, but as pain medication wears off she gets pain again Pain remains in the right flank, right lower quadrant no diarrhea, no vomiting tolerated half of PO contrast this morning no new symptoms ROS: 10 point ROS as noted above, otherwise negative Physical exam General: Alert, NAD HEENT: Sclerae nonicteric, normal conjunctiva Respiratory: Clear to auscultation bilaterally, Normal air movement Cardiovascular: No edema, Regular rate/rhythm Gastrointestinal: Tenderness to palpationsevere RLQ, moderate right flank, reported discomfort in RLQ when palpating around umbilicus and epigastrium. Integumentary: No rashes, No significant lesion Neurological: Normal speech, Normal affect Problem List RLQ pain, with R flank/back pain UTI lung cavitary lesion, left lower lobe h/o crohn's h/o RA h/o kidney stones and UTI h/o b/l DVT, on xarelto Unclear etiology, possible Crohn's, possible appendicitis, possible UTI CT without any significant findings to explain the severity of her pain if this was secondary to UTI no evidence of obstructing stone CT: mild enlargement of appendix, cavitary lesion in lower lung surgery consulted in ED, plan for repeat CT abd this morning, with PO contrast for better visualization NPO until CT results, continue IV fluid Urine with bacteria, patient denies dysuria / urinary frequency/urge, but states her only symptoms are typically "kidney pain", this pain is lower than prior UTI/kidney infections Inflammatory markers elevated, patient has multiple reasons, RA, Crohn's, in fection hold xarelto, continue therapeutic Lovenox pain control GI consulted VTE: lovenox 1mg/kg BID Code: full Dispo: home, ~1-2 days Time Spent Managing Pts Care (In Minutes): 35
[2021-04-27] MEDS ORDERED: MAGNESIUM SULFATE 1 gm IVPB 1 GM/100 ML BAG IV ONE (06:34)
[2021-04-27] MEDS: ENOXAPARIN 80 MG/0.8 ML SQ SCH ×2 (08:26→22:14)
[2021-04-27] MEDS: LORazepam 2 MG/ML VIAL IV PRN ×2 (08:30→22:15)
[2021-04-27] MEDS ORDERED: KCL 20 MEQ/100 mL IVPB 20 MEQ/100 ML BAG IV SCH (09:00)
[2021-04-27] MEDS: FAMOTIDINE 20 MG/2 ML VIAL IV PRN ×2 (09:27→23:07)
[2021-04-27] MEDS: CEFTRIAXONE 1,000 MG in NA CHLORIDE 0.9% 50 ML IVPB SCH (09:27)
[2021-04-27] MEDS ORDERED: CEFTRIAXONE 1000 MG/VIAL ONE (09:28)
--- NOTE | 2021-04-27 10:35 | RAD REPORT ---
EXAM DESCRIPTION: CTAbdomen Pelvis W Contrast - 04/27/2021 10:19 am CLINICAL HISTORY: Abdominal pain. r/o appendicitis, with PO contrast COMPARISON: Abdomen Pelvis W Contrast dated 03/27/2018; Abdomen Pelvis W Contrast dated 04/18/2016; CT ABD PELVIS W CONTRAST dated 07/04/2013; Abdomen Pelvis Wo Contrast dated 04/26/2021 TECHNIQUE: Biphasic CT imaging of the abdomen and pelvis was performed with 100 ml non-ionic IV cont rast. All CT scans are performed using dose optimization technique as appropriate and may include automated exposure control or mA/KV adjustment according to patient size. FINDINGS: Small 14 mm slightly cavitary lesion is again noted left lung base laterally. The liver is mildly fatty. Cholecystectomy. Spleen, pancreas, adrenal glands and right kidney are wit hin normal limits. Small stones are present left kidney without hydronephrosis. No bowel obstruction, free air, free fluid or abscess. Mild sigmoid diverticulosis. The appendix is n ormal. No evidence of significant lymphadenopathy. No suspicious bony findings. IMPRESSION: No evidence of appendicitis. Left-sided renal calculi are noted without hydronephrosis.
[2021-04-27] MEDS ORDERED: FENTANYL 75 MCG/PATCH TD ONE (12:06)
[2021-04-27] MEDS: METHYLPREDNISOLONE 40 MG INJ IV SCH ×2 (12:21→17:27)
--- NOTE | 2021-04-27 14:46 | PN ---
Date of Progress Note: 04/27/2021 Diagnoses: UTI, chronic abdominal pain, Crohn disease. Subjective: This is the case of a 45-year-old patient, admitted yesterday with pain for the last sev eral months in the abdomen. During the CAT scan, some findings were equivocal in the appendix. So t kate, she had a CAT scan repeated with p.o. contrast. The patient feels better. She has some locali zed pain, just mild and generalized. She states the pain she has for months. She understands she storey s Crohn disease and she is treated with medication by Dr. Adams. He is going to consult on this juancho e. Objective: Chest: Clear. Abdomen: Soft and depressible. Laboratory Data: A CAT scan discussed with Dr. Sharp. No evidence of appendicitis and there is left kidney stone, but no hydronephrosis seen. Blood work; yesterday WBC count was normal at 8, today it is still normal at 5, hemoglobin of 9.6, potassium is 3.5, lipase 79. Plan: Continue with the plan of a GI consult. From the surgical standpoint, we can advance diet slo wly. Ambulation. Continue serial examinations. DAVI/AYLIN Voice ID: [id number] Report ID: [id number]
--- NOTE | 2021-04-27 15:52 | CON ---
Date of Consultation: 04/27/2021 Reason For Consultation: Right lower quadrant pain with possible Crohn flare. History Of Present Illness: The patient is a 45-year-old white female with history of Crohn disease, rheumatoid arthritis, kidney stones, UTIs, bilateral lower extremity DVTs and recent bilateral pneum onia. The patient presented to hospital with severe right lower quadrant pain approximately 10/10, w ith possible appendicitis. Initial CT revealed enlargement of the appendiceal area. Slightly enlarg ed area of the appendix. However, second CT revealed a normal-appearing appendix. The patient is on Rocephin by herself and states that Dilaudid gives her pain relief from 9/10 down to 3/10 most recen tly. She denies any diarrhea since her last bowel movement 2 days ago on Sunday. She does have feve rs, chills, nausea along with the right lower quadrant pain that wraps around to her lower back. Not es she quit Imuran therapy 2 weeks ago due to alopecia and she states her hair has grown back. [facility], she has been on Remicade for years now. Her last dose was given 4 weeks ago. She is on a q.6 we ek infusion schedule. Also noted on CT scan, she had a left lower lobe cavitary lesion of 1.4 cm donnie t has decreased in size from over 2 cm, down to 1.4. She had been on a number of antifungal __ and had bilateral pneumonia on prior admission this year. The patient also denies any melena, hem atochezia, hematemesis, coffee-grounds emesis. Past Medical History: Significant for Crohn disease long-term, on Remicade, Imuran stopped recently due to hair loss with rheumatoid arthritis, kidney stones, UTIs, bilateral lower extremity DVTs, bila teral lung pneumonia recently, hospitalizations, C diff history, hysterectomy, kidney stones, cholecy stectomy, tubal ligation. Medications: At home include , dicyclomine, erenumab injector, gabapentin, Ativan, Phenerg an, prednisone, Pepcid, Dexilant, Lomotil, folate, [place], Zanaflex, methocarbamol, ProAir, and Dulera . Allergies: CIPROFLOXACIN AND CEFDINIR OR OMNICEF. CURRENTLY, SHE IS ON ROCEPHIN. Social History: She is , has 13-year-old daughter, 15-year-old son. No tobacco. No alcohol. Family History: Father from COVID last year. He also had hypertension. Mother is alive with h ypertension and had COVID twice last year. Physical Examination: General: The patient is lying in bed, afebrile. Has some mild alopecia, after shaving the hair off, starting to grow back. Vital Signs: Temperature 96.8 degrees Fahrenheit, pulse 98, respirations 16, blood pressure 134/60, O2 saturation 98% to 99% on room air. She is 5 feet 7 inches, 164 pounds. BMI of 25.8 kg/sq m. HEENT: Normocephalic, atraumatic. Anicteric. Pupils equal, round, and reactive to light. Extraocu lar movements intact. Oropharynx clear. Neck: Supple. No masses. Respiratory: Clear to auscultation bilaterally. Cardiac: Regular rate and rhythm. No gallop or rubs. Abdomen: Positive bowel sounds. Soft, nondistended. Pain in the right lower quadrant area with mil d guarding. No rebound. Extremities: No clubbing, cyanosis, or edema. 2+ pulses. Neuro: Alert and oriented x3. Grossly nonfocal. 5/5 motor. Sensation intact to light touch. Laboratory Data: The patient has a white count of 8.5 yesterday, now down to 5.9 today, hemoglobin o f 9.6, down from 11.9 yesterday, hematocrit 28.9, MCV of 87, platelet count of 274, polys of 52%, lym phocytes 37%; monocytes 10%, and eosinophils 2%. Sodium 141, potassium 3.5, chloride 112, bicarb 22, BUN of 9, creatinine of 0.7, glucose 89, calcium 8.9, magnesium 1.6, total bilirubin 0.2, AST 14, AL T of 17, alkaline phosphatase 124. C-reactive protein elevated at 25.6, and sedimentation rate was e levated at 77. Total protein 6.8, albumin 3.0, globulin 3.8. Lipase normal at 79. Procalcitonin le ss than 0.05. UA with 2+ ketones, trace blood, less than 5 squamous epithelial cells, 10 to 20 white blood cells, greater than 50 bacteria, 1+ leukocyte esterase. She has urinary tract infection too. Serology: COVID-[address] abdomen and pelvis on the showed mild enlargement of the appendix, repeat CT on the , today, had no abnormalities with the appendix. Impression: 1.Possible Crohn flare, right lower quadrant pain, 10/10, radiating to the right lower back area wit h negative workup for appendicitis and negative workup for kidney stones. Pain decreases to 3/10 wit h 4 mg of Dilaudid IV. White count is 5.9, polys of 52%. Sedimentation rate is 77. C-reactive prot ein is also elevated at 25.6. She has had full workup for temporal arteritis and other disorder that will cause including rheumatoid arthritis, temporal arteritis or other inflammatory bowel disease. We will need to pursue next level therapy for Crohn disease in this patient considering the other pos sibilities have been ruled out, such as appendicitis and kidney stones so far or the right lower quad rant pain radiating to lower back. She also has fevers, chills, nausea. Remicade was given 4 weeks ago and is q.6 week schedule and Imuran discontinued 2 weeks ago. 2.Urinary tract infection with treatment of antibiotics. 3.Left lower lung lobe cavitary lesion, 1.4 cm, decrease in size, improving. Recommendations: 1.Add Flagyl to Rocephin. 2.Start Solu-Medrol q.6 today and then 40 mg over 24-hour IV drip starting tomorrow. 3.Continue p.r.n. pain medicine, antiemetics. 4.Add fentanyl patch. 5.Consider change biologic from Remicade to other biologic therapies not as effectively controlling her Crohn disease without the Imuran. WS/MODL Voice ID: [id number] Report ID: [id number]
[2021-04-27] MEDS: METRONIDAZOLE 500mg IVPB 500 MG/100 ML BAG IV SCH (17:27)
[2021-04-28] MEDS: METRONIDAZOLE 500mg IVPB 500 MG/100 ML BAG IV SCH ×2 (00:17→08:51)
[2021-04-28] MEDS: HYDROMORPHONE HCL 1 MG/ML INJ IV PRN ×11 (00:18→22:38)
[2021-04-28] MEDS: METHYLPREDNISOLONE 40 MG INJ IV SCH ×2 (00:35→06:00)
[2021-04-28] MEDS: PROMETHAZINE INJ 25 MG/ML AMP IV PRN ×5 (02:17→20:25)
[2021-04-28 05:50] LABS: Absolute Lymphocytes (CBC) 1.1 K/uL (0.7-4.9); Hematocrit 27.7 % (36.0-45.0); Lymphocytes % 17.6 % (15.3-44.8); MPV 8.1 fL (7.6-11.3); RBC Red Blood Cell Count 3.22 M/uL (3.86-4.86)
[2021-04-28] MEDS: NA CHLORIDE 0.9% 1,000 ML IV SCH ×3 (05:53→17:13)
--- NOTE | 2021-04-28 06:17 | P.PN ---
Date of Service: 04/28/21 Subjective: slight improvement in pain frequently receiving IV dilaudid restarted home norco, however patient not taking ROS: 10 point ROS as noted above, otherwise negative Physical exam General: Alert, NAD HEENT: Sclerae nonicteric, normal conjunctiva Respiratory: Clear to auscultation bilaterally, Normal air movement Cardiovascular: No edema, Regular rate/rhythm Gastrointestinal: Tenderness to palpation moderate RLQ, moderate right flank Problem List RLQ pain, with R flank/back pain secondary to acute on chronic crohn's flare UTI secondary to enterococcus lung cavitary lesion, left lower lobe h/o crohn's h/o RA h/o kidney stones and UTI h/o b/l DVT, on xarelto Appendicitis ruled out, stone ruled out, patient most likely in a Crohn's flare GI consulted, steroids initiated 04/27 Decrease IV fluids, patient tolerating some p.o. fluids Pain medication as needed, encourage restarting home p.o. medication with IV breakthrough CT: mild enlargement of appendix, cavitary lesion in lower lung -pulmonology consulted, no further intervention, this is healing from prior pneumonia hold xarelto, continue therapeutic Lovenox VTE: lovenox 1mg/kg BID Code: full Dispo: home, ~2 days Pain control and tolerating diet Time Spent Managing Pts Care (In Minutes): 35
[2021-04-28 07:37] LABS: ALT/SGPT 15 U/L (12-78); AST/SGOT 13 U/L (15-37); Albumin 3.2 g/dL (3.4-5.0); Alkaline Phosphatase 122 U/L (45-117); BUN Blood Urea Nitrogen 6 mg/dL (7-18); Bicarbonate 21 mmol/L (21-32); Bilirubin Total 0.2 mg/dL (0.2-1.0); Glucose Level 137 mg/dL (74-106); Magnesium 1.7 mg/dL (1.8-2.4); Potassium 3.8 mmol/L (3.5-5.1); Sodium Level 137 mmol/L (136-145)
[2021-04-28] MEDS: LORazepam 2 MG/ML VIAL IV PRN ×2 (08:50→20:24)
[2021-04-28] MEDS: ENOXAPARIN 80 MG/0.8 ML SQ SCH ×2 (08:51→20:25)
[2021-04-28] MEDS: BUSPIRONE HCL 5 MG TABLET PO SCH ×3 (08:52→20:43)
[2021-04-28] MEDS: CEFTRIAXONE 1,000 MG in NA CHLORIDE 0.9% 50 ML IVPB SCH (08:52)
[2021-04-28] MEDS: FAMOTIDINE 20 MG/2 ML VIAL IV PRN ×2 (08:58→20:25)
[2021-04-28] MEDS: DIPHENOX/ATROP SULF 1 TAB PO PRN ×4 (08:58→22:39)
[2021-04-28] MEDS ORDERED: MAGNESIUM SULFATE 1 gm IVPB 1 GM/100 ML BAG IV ONE (09:00)
[2021-04-28] MEDS ORDERED: METHYLPREDNISOLONE 40 MG INJ IV SCH (09:00)
[2021-04-28] MEDS ORDERED: POTASSIUM CL SA 10 MEQ TAB PO ONE (09:00)
--- NOTE | 2021-04-28 12:51 | P.PN ---
Subjective Date of Service: 04/28/21 Chief Complaint: RLQ pain, UTI Subjective: New changes (Slightly improved RLQ pain. No pain when 1st given IV pain meds. IV steroids started yesterday with ongoing IV antibiotics.) Review of Systems 10-point ROS is otherwise unremarkable General: Weakness, Malaise Gastrointestinal: Abdominal Pain Physical Examination - Vital Signs Temperature: 97.0 F Blood Pressure: 138/75 Pulse: 87 Respirations: 16 Pulse Ox (%): 99 - Physical Exam General: Alert, In no apparent distress, Oriented x3, Cooperative HEENT: Atraumatic, Normocephalic, PERRLA, EOMI Neck: Supple Respiratory: Normal air movement Cardiovascular: Normal pulses Gastrointestinal: No rebound, Tenderness (RLQ), Guarding Neurological: Normal speech, Normal strength at 5/5 x4 extr - Studies Microbiology Data (last 24 hrs): 04/26/21 12:41 Clean Catch Urine [place] Count - Final >100,000 CFU/ML. 04/26/21 12:41 Clean Catch Urine - Final Enterococcus Faecalis Assessment And Plan - Current Problems (Diagnosis) (1) RLQ abdominal pain Current Visit: Yes Status: Acute (2) Crohns disease Onset Date: 11/02/17 Current Visit: No Status: Acute (3) UTI (urinary tract infection) Onset Date: 11/02/17 Current Visit: No Status: Acute - Plan REC: 1) change Solumedrol to 40 mg in 200 cc bag of saline and run as continuous IV drip over 24 hours 2) continue IV antibiotics 3) full liquid diet
--- NOTE | 2021-04-28 14:42 | PN ---
Date of Progress Note: 04/28/2021 Diagnosis: Abdominal pain, UTI. Subjective: The patient is improving. Yesterday, she received another CT scan done and shows no norm dence of acute appendicitis. The patient is passing flatus. Objective: Abdomen: No peritonitis. Still has generalized tenderness, nonspecific. Laboratory Data: WBC count is 6 with hemoglobin of 9.2. Plan: We encouraged ambulation. Once again, we encouraged to follow with her primary doctor and als o her multigrapher since she has a history of Crohn disease. She understands the options of di agnostic laparoscopy, although at this time she will take conservative treatment and I agree with donnie TOMLINSON/AYLIN Voice ID: [id number] Report ID: [id number]
[2021-04-28] MEDS: AMPICILLIN/SULBACT 3 GM in NA CHLORIDE 0.9% 100 ML IVPB SCH (17:13)
[2021-04-28] MEDS: METHYLPRED NA SUC 40 MG in NA CHLORIDE 0.9% 200 ML IV SCH (17:14)
[2021-04-29] MEDS: METRONIDAZOLE 500mg IVPB 500 MG/100 ML BAG IV SCH ×3 (00:45→16:40)
[2021-04-29] MEDS: HYDROMORPHONE HCL 1 MG/ML INJ IV PRN ×9 (00:48→20:38)
[2021-04-29] MEDS: PROMETHAZINE INJ 25 MG/ML AMP IV PRN ×6 (00:52→22:28)
[2021-04-29] MEDS: AMPICILLIN/SULBACT 3 GM in NA CHLORIDE 0.9% 100 ML IVPB SCH ×3 (00:54→16:40)
[2021-04-29] MEDS: DIPHENOX/ATROP SULF 1 TAB PO PRN ×4 (02:15→18:17)
--- NOTE | 2021-04-29 06:23 | P.PN ---
Date of Service: 04/29/21 Subjective: feels minimal improved with the pain, sore current IV Dilaudid, did not take her home doses of [place] Overnight had a few more episodes of very loose/watery diarrhea Reports history of C. difficile at least 4 times in the past, last episode was many years ago She states current diarrhea seems more like her Crohn's, is not similar to prior C. difficile infections. ROS: 10 point ROS as noted above, otherwise negative Physical exam General: Alert, NAD HEENT: Sclerae nonicteric, normal conjunctiva Respiratory: Clear to auscultation bilaterally, Normal air movement Cardiovascular: No edema, Regular rate/rhythm Gastrointestinal: Tenderness to palpation -moderate RLQ, mild right flank Problem List RLQ pain, with R flank/back pain secondary to acute on chronic crohn's flare UTI secondary to enterococcus lung cavitary lesion, left lower lobe h/o C diff colitis x 4 h/o crohn's h/o RA h/o kidney stones and UTI h/o b/l DVT, on xarelto Appendicitis ruled out, stone ruled out, patient most likely in a Crohn's flare GI consulted, steroids initiated 04/27, weaned down 04/28 continue very gentle IVFs for now Pain medication as needed, encouraged restarting home p.o. medication with IV breakthrough CT: mild enlargement of appendix, cavitary lesion in lower lung -pulmonology consulted, no further intervention, this is healing from prior pneumonia hold xarelto, continue therapeutic Lovenox slow improvement Inflammatory markers improving Enterococcus in the urine, Rocephin changed to Unasyn, continued IV Flagyl given patient's history of multiple C. difficile infections. We will discuss with GI further, consider changing to p.o. vancomycin VTE: lovenox 1mg/kg BID Code: full Dispo: home, ~2 days Pain control and tolerating diet Time Spent Managing Pts Care (In Minutes): 35
[2021-04-29 06:28] LABS: Albumin 3.6 g/dL (3.4-5.0); Bilirubin Total 0.2 mg/dL (0.2-1.0); C-Reactive Protein 12.6 mg/L (<3.00); Potassium 3.8 mmol/L (3.5-5.1); Protein, Total 7.7 g/dL (6.4-8.2)
[2021-04-29 06:41] LABS: Absolute Lymphocytes (CBC) 1.1 K/uL (0.7-4.9); Hematocrit 26.4 % (36.0-45.0); Lymphocytes % 13.6 % (15.3-44.8); RBC Red Blood Cell Count 3.08 M/uL (3.86-4.86)
[2021-04-29] MEDS: LORazepam 2 MG/ML VIAL IV PRN ×2 (07:47→20:37)
[2021-04-29] MEDS: BUSPIRONE HCL 5 MG TABLET PO SCH ×3 (09:57→20:37)
[2021-04-29] MEDS: ENOXAPARIN 80 MG/0.8 ML SQ SCH ×2 (09:57→20:37)
[2021-04-29] MEDS: HYDROCODONE/APAP 10/325 TAB PO PRN ×2 (12:11→22:27)
--- NOTE | 2021-04-29 15:54 | P.PN ---
Subjective Date of Service: 04/29/21 Chief Complaint: RLQ pain, UTI Subjective: Improving (Slow improvement in RLQ pain, diarrhea. Urine culture revealed Enterococcus.) Physical Examination - Vital Signs Temperature: 97.3 F Blood Pressure: 122/60 Pulse: 91 Respirations: 16 Pulse Ox (%): 99 - Physical Exam General: Alert, In no apparent distress, Oriented x3, Cooperative HEENT: Atraumatic, Normocephalic, PERRLA, EOMI Neck: Supple Respiratory: Normal air movement Cardiovascular: Normal pulses Gastrointestinal: Soft and benign Neurological: Normal speech, Normal strength at 5/5 x4 extr Assessment And Plan - Current Problems (Diagnosis) (1) RLQ abdominal pain Current Visit: Yes Status: Acute (2) Crohns disease Onset Date: 11/02/17 Current Visit: No Status: Acute (3) UTI (urinary tract infection) Onset Date: 11/02/17 Current Visit: No Status: Acute - Plan REC: 1) continue Solumedrol to 40 mg in 200 cc bag of saline and run as continuous IV drip over 24 hours 2) continue IV antibiotics 3) full liquid diet 4) Questran po qhs 5) agree with restart of her chronic [place] for her chronic LBP (low back pain) and RA
[2021-04-29] MEDS: METHYLPRED NA SUC 40 MG in NA CHLORIDE 0.9% 200 ML IV SCH (16:40)
[2021-04-29] MEDS: CHOLESTYRAMINE/ASP 4 GM/PKT PO SCH (16:40)
[2021-04-29] MEDS: FAMOTIDINE 20 MG/2 ML VIAL IV PRN (20:36)
[2021-04-30] MEDS: HYDROMORPHONE HCL 1 MG/ML INJ IV PRN ×7 (00:15→22:12)
[2021-04-30] MEDS: METRONIDAZOLE 500mg IVPB 500 MG/100 ML BAG IV SCH ×3 (00:19→18:14)
[2021-04-30] MEDS: AMPICILLIN/SULBACT 3 GM in NA CHLORIDE 0.9% 100 ML IVPB SCH ×3 (00:19→18:14)
[2021-04-30] MEDS: PROMETHAZINE INJ 25 MG/ML AMP IV PRN ×5 (02:34→22:12)
[2021-04-30 05:42] LABS: Hematocrit 29.1 % (36.0-45.0); MPV 8.3 fL (7.6-11.3); RBC Red Blood Cell Count 3.35 M/uL (3.86-4.86)
[2021-04-30 06:06] LABS: C-Reactive Protein 6.21 mg/L (<3.00); Magnesium 2.1 mg/dL (1.8-2.4); Potassium 3.4 mmol/L (3.5-5.1)
--- NOTE | 2021-04-30 06:24 | P.PN ---
Date of Service: 04/30/21 Subjective: improving still requiring IV dilaudid, less frequent no diarrhea today still with nausea, tolerating liquids ROS: 10 point ROS as noted above, otherwise negative Physical exam General: Alert, NAD HEENT: Sclerae nonicteric, normal conjunctiva Respiratory: Clear to auscultation bilaterally, Normal air movement Cardiovascular: No edema, Regular rate/rhythm Gastrointestinal: Tenderness to palpation -moderate RLQ, mild right flank Neuro: normal speech/affect Problem List RLQ pain, with R flank/back pain secondary to acute on chronic crohn's flare UTI secondary to enterococcus lung cavitary lesion, left lower lobe h/o C diff colitis x 4 h/o crohn's h/o RA h/o kidney stones and UTI h/o b/l DVT, on xarelto Appendicitis ruled out, stone ruled out, patient in a Crohn's flare GI consulted, steroids initiated 04/27, weaned down 04/28 Pain medication as needed, encouraged restarting home p.o. medication with IV breakthrough - decrease dilaudid to q4h, wean over next 24hrs CT: mild enlargement of appendix, cavitary lesion in lower lung -pulmonology consulted, no further intervention, this is healing from prior pneumonia hold xarelto, continue therapeutic Lovenox slow improvement Inflammatory markers improving Enterococcus in the urine, Rocephin changed to Unasyn, continued IV Flagyl given patient's history of multiple C. difficile infections. VTE: resume home DOAC Code: full Dispo: home, ~1-2 days Pain control and tolerating diet Time Spent Managing Pts Care (In Minutes): 35
[2021-04-30] MEDS: LORazepam 2 MG/ML VIAL IV PRN ×2 (07:39→22:38)
[2021-04-30] MEDS ORDERED: POTASSIUM CL SA 10 MEQ TAB PO ONE ×2 (09:00→22:10)
[2021-04-30] MEDS: ENOXAPARIN 80 MG/0.8 ML SQ SCH (09:37)
[2021-04-30] MEDS: NA CHLORIDE 0.9% 1,000 ML IV SCH (09:39)
[2021-04-30] MEDS: BUSPIRONE HCL 5 MG TABLET PO SCH ×3 (09:40→20:33)
[2021-04-30] MEDS: CHOLESTYRAMINE/ASP 4 GM/PKT PO SCH ×2 (09:45→18:15)
[2021-04-30] MEDS: HYDROCODONE/APAP 10/325 TAB PO PRN ×2 (11:59→20:33)
[2021-04-30] MEDS: DIPHENOX/ATROP SULF 1 TAB PO PRN ×2 (14:18→20:33)
[2021-04-30] MEDS: METHYLPRED NA SUC 40 MG in NA CHLORIDE 0.9% 200 ML IV SCH (18:14)
[2021-04-30] MEDS: RIVAROXABAN 20 MG TABLET PO SCH (18:15)
[2021-04-30] MEDS: FAMOTIDINE 20 MG/2 ML VIAL IV PRN (20:33)
[2021-05-01] MEDS: METRONIDAZOLE 500mg IVPB 500 MG/100 ML BAG IV SCH ×3 (00:58→16:44)
[2021-05-01] MEDS: AMPICILLIN/SULBACT 3 GM in NA CHLORIDE 0.9% 100 ML IVPB SCH ×3 (00:58→16:43)
[2021-05-01] MEDS: HYDROMORPHONE HCL 1 MG/ML INJ IV PRN ×6 (01:58→22:14)
[2021-05-01] MEDS: PROMETHAZINE INJ 25 MG/ML AMP IV PRN ×6 (01:59→22:14)
[2021-05-01] MEDS: HYDROCODONE/APAP 10/325 TAB PO PRN ×2 (04:11→12:27)
[2021-05-01 06:16] LABS: BUN Blood Urea Nitrogen 5 mg/dL (7-18); Bicarbonate 27 mmol/L (21-32); C-Reactive Protein 4.06 mg/L (<3.00); Glucose Level 124 mg/dL (74-106); Sodium Level 138 mmol/L (136-145)
--- NOTE | 2021-05-01 06:26 | P.PN ---
Date of Service: 05/01/21 Subjective: pain improving had diarrhea this morning, worsening abd pain when having diarrhea in between episodes, is better anxiety worse ROS: 10 point ROS as noted above, otherwise negative Physical exam General: Alert, NAD HEENT: Sclerae nonicteric, normal conjunctiva Respiratory: Clear to auscultation bilaterally, Normal air movement Cardiovascular: No edema, Regular rate/rhythm Gastrointestinal: Tenderness to palpation -moderate RLQ, mild right flank Neuro: anxious/stressed, moves extremities Problem List RLQ pain, with R flank/back pain secondary to acute on chronic crohn's flare UTI secondary to enterococcus lung cavitary lesion, left lower lobe h/o C diff colitis x 4 h/o crohn's h/o RA h/o kidney stones and UTI h/o b/l DVT, on xarelto Appendicitis ruled out, stone ruled out, patient in a Crohn's flare GI consulted, steroids initiated 04/27, weaned down 04/28; continue Pain medication as needed, restarted home norco 10s TID; dilaudid for breakthrough - improving CT: mild enlargement of appendix, cavitary lesion in lower lung -pulmonology consulted, no further intervention, this is healing from prior pneumonia restart home xarelto slow improvement Inflammatory markers improving Enterococcus in the urine, Rocephin changed to Unasyn, discussed with GI and continued IV Flagyl given patient's history of multiple C. difficile infections. VTE: Xarelto Code: full Dispo: home, ~1-2 days Pain control and tolerating diet Time Spent Managing Pts Care (In Minutes): 35
[2021-05-01] MEDS ORDERED: NA CHLORIDE 0.9% 0 ML ONE ×2 (08:23→16:39)
[2021-05-01] MEDS: CHOLESTYRAMINE/ASP 4 GM/PKT PO SCH (08:48)
[2021-05-01] MEDS: BUSPIRONE HCL 5 MG TABLET PO SCH ×3 (08:58→22:15)
[2021-05-01] MEDS: DIPHENOX/ATROP SULF 1 TAB PO PRN ×3 (08:58→22:16)
[2021-05-01] MEDS ORDERED: RIVAROXABAN 20 MG TABLET PO SCH (09:00)
--- NOTE | 2021-05-01 09:09 | P.PN ---
Subjective Date of Service: 05/01/21 Chief Complaint: RLQ pain, UTI Subjective: Improving (Reports feeling 50% better than on admission. Still with occasional diarrhea but no hematochezia. RLQ pain less. High use of pain medications with history of chronic [place] use.) Review of Systems 10-point ROS is otherwise unremarkable General: Weakness (Improved.) Gastrointestinal: Abdominal Pain, Diarrhea Musculoskeletal: Back Pain Physical Examination - Vital Signs Temperature: 97.0 F Blood Pressure: 169/75 Pulse: 75 Respirations: 16 Pulse Ox (%): 95 - Physical Exam General: Alert, Oriented x3, Cooperative HEENT: Atraumatic, Normocephalic, PERRLA, EOMI Neck: Supple Respiratory: Normal air movement Cardiovascular: Normal pulses Gastrointestinal: No rebound, Tenderness, Guarding Neurological: Normal speech, Normal strength at 5/5 x4 extr Assessment And Plan - Current Problems (Diagnosis) (1) RLQ abdominal pain Current Visit: Yes Status: Acute (2) Crohns disease Onset Date: 11/02/17 Current Visit: No Status: Acute (3) UTI (urinary tract infection) Onset Date: 11/02/17 Current Visit: No Status: Acute - Plan REC: 1) continue Solumedrol to 40 mg in 200 cc bag of saline and run as continuous IV drip over 24 hours 2) continue IV antibiotics 3) GI soft diet 4) d/c Questran po qhs 5) d/c Fentanyl patch on expiration 6) d/c in 1-3 days
[2021-05-01] MEDS: LORazepam 2 MG/ML VIAL IV PRN (10:12)
[2021-05-01] MEDS: GABAPENTIN 300 MG CAP PO SCH ×2 (14:47→22:16)
[2021-05-01] MEDS ORDERED: NA CHLORIDE 0.9% 100 ML ONE (16:38)
[2021-05-01] MEDS: METHYLPRED NA SUC 40 MG in NA CHLORIDE 0.9% 200 ML IV SCH (16:43)
[2021-05-01] MEDS: RIVAROXABAN 20 MG TABLET PO SCH (16:44)
[2021-05-01] MEDS: LORAZEPAM 1 MG TABLET PO PRN (22:14)
[2021-05-01] MEDS: HYDROCODONE/APAP 10/325 TAB PO SCH (22:15)
[2021-05-02] MEDS: METRONIDAZOLE 500mg IVPB 500 MG/100 ML BAG IV SCH ×3 (01:19→18:11)
[2021-05-02] MEDS: AMPICILLIN/SULBACT 3 GM in NA CHLORIDE 0.9% 100 ML IVPB SCH ×3 (01:19→17:12)
[2021-05-02] MEDS: HYDROMORPHONE HCL 1 MG/ML INJ IV PRN ×5 (04:46→22:02)
[2021-05-02] MEDS: PROMETHAZINE INJ 25 MG/ML AMP IV PRN ×5 (04:47→21:59)
--- NOTE | 2021-05-02 06:14 | P.PN ---
Date of Service: 05/02/21 Subjective: improving, patient tearful this morning loose stool x2 overnight able to get slightly better sleep last night, 6 hours between dilaudid overnight ROS: 10 point ROS as noted above, otherwise negative Physical exam General: Alert, NAD HEENT: Sclerae nonicteric, normal conjunctiva Respiratory: Clear to auscultation bilaterally, Normal air movement Cardiovascular: No edema, Regular rate/rhythm Gastrointestinal: Tenderness to palpation -moderate RLQ, mild right flank Neuro: anxious/stressed, moves extremities Problem List RLQ pain, with R flank/back pain secondary to acute on chronic crohn's flare UTI secondary to enterococcus lung cavitary lesion, left lower lobe h/o C diff colitis x 4 h/o crohn's h/o RA h/o kidney stones and UTI h/o b/l DVT, on xarelto Appendicitis ruled out, stone ruled out, patient in a Crohn's flare GI consulted, steroids initiated 04/27, weaned down 04/28; continue Pain medication as needed, continue home norco 10s TID; dilaudid for breakthrough - improving; space out di laudid CT: mild enlargement of appendix, cavitary lesion in lower lung -pulmonology consulted, no further intervention, this is healing from prior pneumonia restart home xarelto slow improvement Inflammatory markers improved Enterococcus in the urine, Rocephin changed to Unasyn days ago, discussed with GI and continued IV Flagyl given patient's history of multiple C. difficile infections. VTE: Xarelto Code: full Dispo: home, ~1 day Pain control and tolerating diet Time Spent Managing Pts Care (In Minutes): 35
[2021-05-02 06:15] LABS: Hematocrit 29.3 % (36.0-45.0); MPV 8.3 fL (7.6-11.3); RBC Red Blood Cell Count 3.36 M/uL (3.86-4.86)
[2021-05-02 06:26] LABS: ALT/SGPT 24 U/L (12-78); AST/SGOT 30 U/L (15-37); Albumin 3.2 g/dL (3.4-5.0); Alkaline Phosphatase 89 U/L (45-117); BUN Blood Urea Nitrogen 8 mg/dL (7-18); Bicarbonate 26 mmol/L (21-32); Bilirubin Total 0.2 mg/dL (0.2-1.0); C-Reactive Protein < 2.90 mg/L (<3.00); Glucose Level 128 mg/dL (74-106); Potassium 3.5 mmol/L (3.5-5.1); Protein, Total 6.9 g/dL (6.4-8.2); Sodium Level 140 mmol/L (136-145)
[2021-05-02] MEDS: HYDROCODONE/APAP 10/325 TAB PO SCH ×3 (08:17→21:12)
[2021-05-02] MEDS: LORAZEPAM 1 MG TABLET PO PRN ×2 (08:17→21:12)
[2021-05-02] MEDS: BUSPIRONE HCL 5 MG TABLET PO SCH ×3 (08:18→21:12)
[2021-05-02] MEDS: GABAPENTIN 300 MG CAP PO SCH ×3 (08:18→21:12)
[2021-05-02] MEDS ORDERED: POTASSIUM CL SA 10 MEQ TAB PO ONE (09:00)
[2021-05-02] MEDS: DIPHENOX/ATROP SULF 1 TAB PO PRN ×4 (09:04→21:58)
[2021-05-02] MEDS: RIVAROXABAN 20 MG TABLET PO SCH (17:12)
--- NOTE | 2021-05-02 18:17 | P.PN ---
Subjective Date of Service: 05/02/21 Chief Complaint: RLQ pain, UTI Subjective: Improving (Slowly improving. CRP now undetectable from 25.6 on admission. Sitting in bed eating [place] without any distress / problem. Ate lasagna last night with diarrhea. Less RLQ pain but does not think she can go home without more pain meds than her chronic [place].) Review of Systems 10-point ROS is otherwise unremarkable General: Weakness, Malaise (Improved. ) Gastrointestinal: Abdominal Pain, Diarrhea Physical Examination - Vital Signs Temperature: 96.7 F Blood Pressure: 130/81 Pulse: 90 Respirations: 18 Pulse Ox (%): 97 - Physical Exam General: Alert, In no apparent distress, Oriented x3, Cooperative HEENT: Atraumatic, Normocephalic, PERRLA, EOMI Neck: Supple Respiratory: Normal air movement Cardiovascular: Normal pulses Gastrointestinal: No rebound, No guarding, Tenderness (RLQ only and less) Neurological: Normal speech, Normal strength at 5/5 x4 extr - Studies Microbiology Data (last 24 hrs): 04/26/21 14:35 Blood - Blood Aerobic Blood Culture - Final No growth in 5 days. 04/26/21 14:35 Blood - Blood Anaerobic Blood Culture - Final No growth in 5 days. 04/26/21 14:20 Blood - Blood Aerobic Blood Culture - Final No growth in 5 days. 04/26/21 14:20 Blood - Blood Anaerobic Blood Culture - Final No growth in 5 days. Assessment And Plan - Current Problems (Diagnosis) (1) RLQ abdominal pain Current Visit: Yes Status: Acute (2) Crohns disease Onset Date: 11/02/17 Current Visit: No Status: Acute (3) UTI (urinary tract infection) Onset Date: 11/02/17 Current Visit: No Status: Acute - Plan REC: 1) continue Solumedrol to 40 mg in 200 cc bag of saline and run as continuous IV drip over 24 hours 2) continue IV antibiotics 3) GI soft diet 4) d/c Questran po qhs 5) d/c Fentanyl patch on expiration 6) d/c in 1-2 days 7) return to pain mgmt on discharge
[2021-05-03] MEDS: METRONIDAZOLE 500mg IVPB 500 MG/100 ML BAG IV SCH ×3 (00:14→17:38)
[2021-05-03] MEDS: AMPICILLIN/SULBACT 3 GM in NA CHLORIDE 0.9% 100 ML IVPB SCH ×3 (01:19→16:42)
[2021-05-03] MEDS: METHYLPRED NA SUC 40 MG in NA CHLORIDE 0.9% 200 ML IV SCH ×2 (01:19→16:00)
[2021-05-03] MEDS: PROMETHAZINE INJ 25 MG/ML AMP IV PRN ×5 (02:31→18:43)
[2021-05-03] MEDS: HYDROMORPHONE HCL 1 MG/ML INJ IV PRN ×5 (02:32→18:43)
[2021-05-03 04:10] LABS: Potassium 3.7 mmol/L (3.5-5.1)
[2021-05-03] MEDS: GABAPENTIN 300 MG CAP PO SCH ×3 (08:09→20:36)
[2021-05-03] MEDS: LORAZEPAM 1 MG TABLET PO PRN ×2 (08:09→20:37)
[2021-05-03] MEDS: BUSPIRONE HCL 5 MG TABLET PO SCH ×3 (08:09→20:36)
[2021-05-03] MEDS: DIPHENOX/ATROP SULF 1 TAB PO PRN ×3 (08:09→18:43)
[2021-05-03] MEDS: HYDROCODONE/APAP 10/325 TAB PO SCH ×3 (08:10→20:37)
[2021-05-03] MEDS ORDERED: POTASSIUM CL SA 10 MEQ TAB PO ONE (09:00)
[2021-05-03 12:36] VITALS: BMI 25.7
[2021-05-03] MEDS: FAMOTIDINE 20 MG/2 ML VIAL IV PRN (15:22)
[2021-05-03] MEDS: RIVAROXABAN 20 MG TABLET PO SCH (16:42)
--- NOTE | 2021-05-03 18:32 | P.PN ---
Subjective Date of Service: 05/03/21 Chief Complaint: RLQ pain, UTI Patient complaining of diarrhea overnight and not feeling back to baseline. Physical Examination - Vital Signs Temperature: 96.8 F Blood Pressure: 136/86 Pulse: 90 Respirations: 18 Pulse Ox (%): 98 Assessment And Plan - Plan Physical exam General: Alert, NAD HEENT: Sclerae nonicteric, normal conjunctiva Respiratory: Clear to auscultation bilaterally, Normal air movement Cardiovascular: No edema, Regular rate/rhythm Gastrointestinal: Tenderness to palpation -moderate RLQ, mild right flank Neuro: anxious/stressed, moves extremities Problem List RLQ pain, with R flank/back pain secondary to acute on chronic crohn's flare UTI secondary to enterococcus lung cavitary lesion, left lower lobe h/o C diff colitis x 4 h/o crohn's h/o RA h/o kidney stones and UTI h/o b/l DVT, on xarelto Appendicitis ruled out, stone ruled out, patient in a Crohn's flare GI consulted, IV steroids initiated 04/27, weaned down 04/28. Transition to oral prednisone. Pain medication as needed, continue home norco 10s TID. Dilaudid as needed for breakthrough pain CT: mild enlargement of appendix, cavitary lesion in lower lung -pulmonology consulted, no further intervention, this is healing from prior pneumonia Continue Xarelto Diet as tolerated Inflammatory markers improved Enterococcus in the urine, Rocephin changed to Unasyn days ago, discussed with GI and continued IV Flagyl given patient's history of multiple C. difficile infections. Possible discharge in a.m.
[2021-05-03 21:14] VITALS: O2SAT 95
[2021-05-04] MEDS: METRONIDAZOLE 500mg IVPB 500 MG/100 ML BAG IV SCH ×2 (00:30→08:27)
[2021-05-04] MEDS: PROMETHAZINE INJ 25 MG/ML AMP IV PRN ×2 (00:31→04:48)
[2021-05-04] MEDS: DIPHENOX/ATROP SULF 1 TAB PO PRN ×2 (00:31→04:47)
[2021-05-04] MEDS: HYDROMORPHONE HCL 1 MG/ML INJ IV PRN ×2 (00:31→04:48)
[2021-05-04] MEDS: AMPICILLIN/SULBACT 3 GM in NA CHLORIDE 0.9% 100 ML IVPB SCH ×3 (01:42→09:00)
[2021-05-04 04:26] LABS: Absolute Lymphocytes (CBC) 1.8 K/uL (0.7-4.9); Hematocrit 28.7 % (36.0-45.0); Lymphocytes % 22.1 % (15.3-44.8); MPV 8.6 fL (7.6-11.3); RBC Red Blood Cell Count 3.33 M/uL (3.86-4.86)
[2021-05-04 04:41] LABS: BUN Blood Urea Nitrogen 8 mg/dL (7-18); Bicarbonate 26 mmol/L (21-32); Glucose Level 124 mg/dL (74-106); Potassium 3.9 mmol/L (3.5-5.1); Sodium Level 138 mmol/L (136-145)
[2021-05-04 08:13] VITALS: BP 134/86; TEMP 97.9
[2021-05-04] MEDS ORDERED: NA CHLORIDE 0.9% 100 ML ONE (08:13)
[2021-05-04] MEDS: HYDROCODONE/APAP 10/325 TAB PO SCH (08:21)
[2021-05-04] MEDS: GABAPENTIN 300 MG CAP PO SCH (08:22)
[2021-05-04] MEDS: METHYLPRED NA SUC 40 MG in NA CHLORIDE 0.9% 200 ML IV SCH (08:23)
[2021-05-04] MEDS: BUSPIRONE HCL 5 MG TABLET PO SCH (08:27)
[2021-05-04] MEDS: FAMOTIDINE 20 MG/2 ML VIAL IV PRN (08:27)
[2021-05-04] MEDS: LORAZEPAM 1 MG TABLET PO PRN (08:27)
--- NOTE | 2021-05-04 11:20 | P.DS ---
Admission Date: 04/27/21 Discharge Date: 05/04/21 Disposition: ROUTINE DISCHARGE Discharge Condition: FAIR Reason for Admission: RLQ pain, UTI Consultations: GI-Dr. Adams. - Problems (1) Crohns disease Onset Date: 11/02/17 Status: Acute Brief History of Present Illness: 45yo F, PMH: Crohn's disease, RA, prior kidney stones, UTIs, bilateral lower extremity DVTs presented to the ED with 1 day of severe right back pain that radiates to the right lower quadrant. She also reported low-grade temperature and chills as well. Symptoms associated with nausea and inability to keep anything but water down. Denies any dysuria, no change in urinary habits. Reports she has been having some dark greenish stool, no diarrhea, no melena. No recent changes in any of her medications. She reports she was diagnosed with bilateral DVTs on 02/01, currently on xarelto. In the ED, patient was noted be afebrile, no leukocytosis, found to have moderatesevere tenderness in the right lower quadrant, and right flank area. CT abdomen/pelvis showed a slightly enlarged appendix without any surrounding stranding/inflammatory changes. ED physician consulted general surgery, recommended hospitalization for further management. Hospital Course: Diagnosis RLQ pain, with R flank/back pain secondary to acute on chronic crohn's flare UTI secondary to enterococcus lung cavitary lesion, left lower lobe h/o C diff colitis x 4 h/o crohn's h/o RA h/o kidney stones and UTI h/o b/l DVT, on xarelto Patient seen by general surgery for possible acute appendicitis and it was determined to treat the slightly enlarged appendix conservatively. Patient noted to be in Crohn's disease flare. GI consulted and IV steroids initiated 04/27. She was later transitioned to to oral prednisone as his symptoms improved. Patient has chronic pain and known chronic [place] which was continued. She also needed Dilaudid prn for breakthrough pain CT: mild enlargement of appendix, cavitary lesion in lower lung -pulmonology consulted, no further intervention, this is healing from prior pneumonia Continued Xarelto for history of DVT. Patient symptoms got better and she was able to tolerate solid diet. Inflammatory markers improved Enterococcus in the urine treated with antibiotics. Patient clinically improved and deemed stable for discharge. She requested for Tylenol 3 for breakthrough pain which is prescribed for a few days. She is also prescribed prednisone taper. Vital Signs/Physical Exam: Temp Pulse Resp BP Pulse Ox 97.9 F 84 18 134/86 99 05/04/21 08:00 05/04/21 08:00 05/04/21 08:00 05/04/21 08:00 05/04/21 08:00 General: Alert, In no apparent distress, Oriented x3 HEENT: Mucous membr. moist/pink Neck: Supple Respiratory: Clear to auscultation bilaterally, Normal air movement Cardiovascular: No edema, Regular rate/rhythm, Normal S1 S2 Gastrointestinal: Normal bowel sounds, Soft and benign, Non-distended Musculoskeletal: No swelling, No tenderness Integumentary: No rashes, No cyanosis Neurological: Normal strength at 5/5 x4 extr Laboratory Data at Discharge: WBC 8.30 K/uL (4.3-10.9) D 05/04/21 03:55 Hgb 9.7 g/dL (12.0-15.0) L 05/04/21 03:55 Hct 28.7 % (36.0-45.0) L 05/04/21 03:55 Plt Count 206 K/uL (152-406) 05/04/21 03:55 Sodium 138 mmol/L (136-145) 05/04/21 03:55 Potassium 3.9 mmol/L (3.5-5.1) 05/04/21 03:55 BUN 8 mg/dL (7-18) 05/04/21 03:55 Creatinine 0.70 mg/dL (0.55-1.3) 05/04/21 03:55 Glucose 124 mg/dL (74-106) H 05/04/21 03:55 Magnesium 2.1 mg/dL (1.8-2.4) 04/30/21 05:31 Total Bilirubin 0.2 mg/dL (0.2-1.0) 05/02/21 05:48 AST 30 U/L (15-37) 05/02/21 05:48 ALT 24 U/L (12-78) 05/02/21 05:48 Alkaline Phosphatase 89 U/L (45-117) 05/02/21 05:48 Lipase 79 U/L (73-393) 04/26/21 10:18 Home Medications: Buspirone HCl [Buspar] 10 mg PO TID 05/27/21 Dicyclomine HCl 20 mg PO TID 07/08/20 Gabapentin 600 mg PO TID 07/08/20 LORazepam [Ativan*] 1 mg PO BID 07/08/20 Famotidine [Pepcid] 1 tab PO DAILY 07/09/20 Dexlansoprazole [Dexilant] 60 mg PO DAILY 12/30/20 Tizanidine HCl [Zanaflex] 4 mg PO TID 12/30/20 methocarbamoL [Methocarbamol] 500 mg PO BEDTIME 12/30/20 Albuterol Inhaler [Ventolin Inhaler*] 2 puff IH Q4H PRN 04/26/21 Fluticasone/Vilanterol [Breo Ellipta 200-25 Mcg INH] 1 puff IH DAILY 04/26/21 Hydrocodone/Acetaminophen [Hydrocodone-Acetamin 10-325 mg] 1 tab PO TID 04/26/21 Rivaroxaban [Xarelto] 1 tab PO DAILY 04/26/21 predniSONE [Prednisone] 1 tab PO DAILY 04/26/21 Codeine/APAP [Tylenol W/Codeine #3 tab] 1 tab PO Q6HP PRN #15 tab 05/04/21 Diphenox/Atropine [Lomotil*] 1 tab PO Q4H PRN #30 tab 05/04/21 Ondansetron [Zofran (Odt)*] 8 mg PO Q6H PRN #30 tab 05/04/21 Promethazine Tab [Phenergan*] 25 mg PO Q6HP PRN #30 tab 05/04/21 predniSONE [Deltasone] 5 mg PO DAILY #30 tab 05/04/21 New Medications: Promethazine Tab [Phenergan*] 25 mg PO Q6HP PRN #30 tab PRN Reason: Nausea / Vomiting Codeine/APAP [Tylenol W/Codeine #3 tab] 1 tab PO Q6HP PRN #15 tab PRN Reason: Pain Diphenox/Atropine [Lomotil*] 1 tab PO Q4H PRN #30 tab PRN Reason: Diarrhea predniSONE [Deltasone] 5 mg PO DAILY #30 tab Ondansetron [Zofran (Odt)*] 8 mg PO Q6H PRN #30 tab PRN Reason: Nausea / Vomiting Followup: Roman Fallon MD [Primary Care Provider] - 1 Week (PCP- call to schedule an appointment ) Fercho Adams MD [ASSOCIATE-ACTIVE - CAN ADMIT] - (GI doctor- follow up as needed. ) Time spent managing pt's care (in minutes): 35
== END 2021-05-04 10:42 | disposition home or self-care (01) | DRG 386 ==
LOC: ER 09:41 → ERHOLD 12:20 → 2ND 15:12 → OBSVTOIN 04-27 12:26
PROVIDERS: ADMIT Hospitalist; ATTEND Internal Medicine
DX: K50.90 Crohn's disease, unspecified, without complications (principal); N39.0 Urinary tract infection, site not specified; M54.9 Dorsalgia, unspecified; R91.1 Solitary pulmonary nodule; B96.89 Other specified bacterial agents as the cause of diseases classified elsewhere; Z88.1 Allergy status to other antibiotic agents; Z88.8 Allergy status to other drugs, medicaments and biological substances; Z90.710 Acquired absence of both cervix and uterus; Z86.718 Personal history of other venous thrombosis and embolism; Z79.01 Long term (current) use of anticoagulants; Z79.52 Long term (current) use of systemic steroids; Z79.899 Other long term (current) drug therapy; Z90.49 Acquired absence of other specified parts of digestive tract; Z98.51 Tubal ligation status; Z20.822 Contact with and (suspected) exposure to COVID-19
CPT/HCPCS: 36415; 74176; 74177; 80048; 80053; 81003; 81015; 83690; 83735; 84132; 84145; 85025; 85027; 85652; 86140; 87040; 87077; 87086; 87088; 87186; 94760; 96361; 96372; 96374; 96375; 99285; G0378; J0295; J1170; J2405; J2550; J2920; J3475; J3480; J7030; J7050; Q9967; U0003

== ENCOUNTER 2021-05-22 10:34 | Emergency (ER) | payer BC ==
--- OUTSIDE RECORDS SUMMARY | 2021-05-22 10:54 | XMS REPORT | Continuity of Care Document ---
:1975 Author Organization [facility] t Address [address] [place] [address] Care Team Providers Name Role Phone Yariel Fallon Primary Care Physician Delphine Hernandez Attending Clinician Unavailable Gopal Fisher MD Attending Clinician Delphine Redman RN Attending Clinician SANDRITA Attending Clinician Unavailable Niurka Eagle MD Attending Clinician Sandrita MENJIVAR Attending Clinician Quan Kennedy MD Attending Clinician [phone] Pob, Lab Main Attending Clinician Unavailable Debi [...] Clinician JUAN M Attending Clinician Unavailable Vishnu CUSTOMER EXPERT, G Attending Clinician Aba DO, J Attending Clinician Provider, Urgent Care Attending Clinician Unavailable Rolanda PRESSLEY, A Attending Clinician Sadia ORANTES Attending Clinician Unavailable Gramm INSURANCE PREMIUM AUDITOR, A Attending Clinician Rohit PAC, S Attending Clinician Juan M MENJIVAR Attending Clinician 2, Lab Attending Clinician Unavailable LORA GARCIA Attending Clinician Unavailable SANDRITA Admitting Clinician Unavailable Sandrita MENJIVAR Admitting Clinician Jude MENJIVAR Admitting Clinician Pool MENJIVAR Admitting Clinician JILLIAN Admitting Clinician Unavailable Payers Payer Name Policy Type Policy Number Effective Date Expiration Date S ource [employer] [place] - [id number] 2012 00:00:00 OUT OF STATE Problems Condition Condition Condition Status Onset Resolution Last Treating Co mments Source Name Details Category Date Date Treatment Clinician Date Hypokalemi Hypokalemi Disease Active 2020-02 U trinityers a a 0-25 ity of 00:00: [place] [address] Medical Branch Hypotensio Hypotensio Disease Active 2020-02 U carolyn n n 0-24 ity of 00:: [place] [address] Medical Branch Obesity Obesity Disease Active 2020-02 Univers (BMI (BMI 0-24 ity of 30-39.9) 30-39.9) 00:00: [place] [facility] 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 6-02 ity of 00:00: [place] [address] Medical Branch Status Status Disease Active Univers migrainosu migrainosu 5-15 it y of s s 00:00: [place] [address] Medical Branch Pyelonephr Pyelonephr Disease Active U [...] INGREDI 4-06 ity of 00:00: [place] 00 [facility] Branch Cipro Adverse Active Hives, [facility] Reaction burning [facility] Social History Social Habit Start Date Stop Date Quantity Comments Source History of Snuff User University of tobacco use [facility] History SDOH University o f Alcohol Frequency [facility] edical [place] History [facility] University o f Alcohol Std [place] [facility] Drinks Branch History [facility] o f Alcohol Binge [place] Medic al [place] Exposure to Yes [facility] SARS-CoV-2 [facility] (event) [place] Alcohol intake 2020-12-05 2020-12-05 0 /d University of 00:00:00 00:00:00 [facility] Tobacco use and 2020-07-13 2020-07-13 Never used Universit y of exposure 00:00:00 00:00:00 [facility] Alcohol Comment 2015-06-22 2015-06-22 No alcohol use Unive rsity of 00:00:00 00:00:00 per pt [facility] Sex [birth year] Universit y of 00:00:00 00:00:00 [facility] Smoking Status Start Date Stop Date Source Never smoker [facility] [place] [facility] Medications Ordered Filled Start Stop Current Ordering Indication Dosage Frequency Signature Comments Components Source Medication Medication Date Date Medication? Clinician (SIG) Name Name predniSONE 2020-02 Yes 20mg Take 20 mg U nivers 10 mg -02 by mouth ity of tablet 03:45: daily. [place] [address] Medical [place] Hydrocodone 2020-02 Yes 1{tbl} Take 1 Un [...] 02 by mouth ity of 03:45: daily. [address] Branch methocarbam 2020-02 Yes 500mg Take 500 U nivers oL 500 mg -02 mg by ity of tablet 03:45: mouth at [place] [address] bedtime. Medical Branch dicyclomine 2020-02 Yes 20mg Take 20 mg Univers 20 mg 02 by mouth 3 ity of tablet 03:45: (three) [place] 04 times Medical daily. Branch famotidine 2020-02 Yes 40mg Take 40 mg U nivers 40 mg 02 by mouth ity of tablet 03:45: at [place] [address] bedtime. Medical Branch albuterol 2020-02 Yes 2{puff} [...] by mouth ity of tablet 03:45: daily. [place] [address] Medical Branch Hydrocodone 2020-02 Yes 1{tbl} Take [...] 02 by mouth ity of 03:45: daily. [place] 04 Medical Branch methocarbam 2020-02 Yes 500mg Take 500 U nivers oL 500 mg 1-02 mg by ity of tablet 03:45: mouth at [place] 04 bedtime. Medical Branch dicyclomine 2020-02 Yes 20mg Take 20 mg Univers 20 mg 02 by mouth 3 ity of tablet 03:45: (three) [place] 04 times Medical daily. Branch famotidine 2020-02 Yes 40mg Take 40 mg U nivers 40 mg 02 by mouth ity of tablet 03:45: at [place] 04 bedtime. Medical Branch albuterol 2020-02 Yes [...] Medical capsule meals. Branch furosemide 2020-02 Yes [id number] 20mg Take 1 U nivers 20 mg 1-01 tablet by ity of tablet 00:00: mouth [place] 00 every Medical Sunday, Branch Sunday and Sunday. furosemide 2020-02 Yes [id number] 20mg Take 1 U nivers 20 mg 1-01 tablet by ity of tablet 00:00: mouth [place] 00 every Medical Sunday, Branch Sunday and Sunday. furosemide 2020-02 Yes [id number] 20mg Take 1 U nivers 20 mg 1-01 tablet by ity of tablet 00:00: mouth [place] 00 every Medical Sunday, Branch Sunday and Sunday. metoprolol 2020-02 Yes 25mg Take 25 mg U nivers succinate 0-31 by mouth ity of (TOPROL XL 16:03: daily. [place] ORAL) Medical Branch inFLIXimab 2020-02 Yes 840mg Inject 840 Univers (REMICADE) 0-31 mg ity of 100 mg 16:03: intravenou [place] injection 38 sly every Medic al 6 (six) Branch weeks. predniSONE 2020-02 Yes 20mg Take 20 mg U nivers 10 mg 0-31 by mouth ity of tablet 16:03: daily. [place] [address] Medical Branch Hydrocodone 2020-02 Yes 1{tbl} Take 1 Un matt -Acetaminop 0-31 tablet by ity of hen 7.5-300 16:03: mouth 3 [place] as mg tablet 38 (three) Medical times Branch daily. tiZANidine 2020-02 Yes 4mg Take 4 mg Un matt 4 mg tablet 0-31 by mouth 3 it y of 16:03: (three) [place] [address] times Medical daily. Branch foLIC acid 2020-02 Yes 3mg Take 3 mg Un matt 1 mg tablet 0-31 by mouth ity of 16:03: daily. [place] [address] Medical Branch methocarbam 2020-02 Yes 500mg Take 500 U nivers oL 500 mg 0-31 mg by ity of tablet 16:03: mouth at [place] [address] bedtime. Medical Branch dicyclomine 2020-02 Yes 20mg Take 20 mg Univers 20 mg 0-31 by mouth 3 ity of tablet 16:03: (three) [place] [address] times Medical daily. Branch famotidine 2020-02 Yes 40mg Take 40 mg U nivers 40 mg 0-31 by mouth ity of tablet 16:03: at [place] [address] bedtime. Medical Branch albuterol 2020-02 Yes 2{puff} [...] weekly. Medical Branch NaCl 0.9% 2020-02- No [id number] 1000mg Infuse Univers (NS) PgBk 0-31 11-11 1,000 mg ity o f 50 mL with 00:00: 05:59 every 12 [place] ceFEPIme 1 00 :00 (twelve) Medic al gram SolR hours for Branc h 1,000 mg 10 days. vancomycin/ 2020-02- No [id number] 1500mg 1,500 mg Univers 0.9 % sod 0-31 11-11 by IV ity of chloride 00:00: 05:59 [place]fusion [place] (VANCOMYCIN 00 :00 route Medical 1500 MG IN every 24 Branc h NS 500 ML) (twenty-fo 1.5 ur) hours gram/500 mL for 10 Soln days. NaCl 0.9% 2020-02 No [id number] 1000mg Infuse Univers (NS) PgBk 11 1,000 mg ity o f 50 mL with 00:00: 05:59 every 12 [place] ceFEPIme 1 00 :00 (twelve) Medic al gram SolR hours for Branc h 1,000 mg 10 days. vancomycin/ 2020-02 No [id number] 1500mg 1,500 mg Univers 0.9 % sod [...] Medical Fri Branch 12/10/20 at 1830, Routine
member service specialist approving Restricted medication : AGLIJULIETTE NICOLE G sodium 2020-02- No 500mg 0.5 g (500 Uni vers chloride 0- 10-29 mg), Oral, ity of tablet 0.5 22:00: 22:30 TID MEALS, [place] g 00 :42 First dose Medical on Sun12/10/20 at 1700, Until Discontinu ed, Routine ceFEPIme 2020-02 Yes 1000mg 1,000 mg, Un matt (MAXIPIME) 0-29 IV ity of 1,000 mg in 17:45: [facility] [place] NaCl 0.9% 00 Q12H ABX, Medic al (NS) 50 mL First dose Bra [facility] MINI-BAG on Sun12/10/20 at 1245, Until Discontinu ed, Administer over 30 Minutes, 50 mL
Reas on for Anti-Infec tive: Documented Infection< br>Documen karly Infection Site: Skin / Soft Tissue
Duration of Therapy: Other (see Comments) potassium 2020-02- No 30mmol 30 mmol, U nivers phosphate 0- IV ity of 30 mmol in 13:15: 14:16 Piggyback, [place] NaCl 0.9% 00 :00 ONCE, 1 Medical [...] exas mg 00 :55 on [facility] Medical 12/09/20 Branch at 2000, Until Discontinu ed, Routine potassium 2020-02 No 15mmol 15 mmol, U nivers phosphate 12-09 IV ity of 15 mmol in 15:45: 16:34 Piggyback, [place] NaCl 0.9% 00 :00 ONCE, 1 Medical (NS) 150 mL dose, On Bran ch piggyback [facility] 12/09/20 at 1045, 150 mL predniSONE 2020-02 Yes 30mg 30 mg, Unive rs (DELTASONE) 0 Oral, ity of tablet 30 15:00: DAILY, [place] mg 00 First dose Medical on [facility] 12/09/20 at 1000, Until Discontinu ed, Routine calcitrioL 2020-02 Yes .5ug 0.5 mcg, Uni vers (ROCALTROL) Oral, ity of capsule 0.5 15:00: DAILY, [place] mcg 00 First dose Medical on [facility] 12/09/20 at 1000, Until Discontinu ed, Routine KCL 2020-02 No 40meq 40 mEq, Univers (KLOR-CON 12-09 Oral, Q4H, ity of M20) tablet 15:00: 16:35 2 doses, [place] 40 mEq 00 :00 First dose Medical (after Branch last modificati on) on [facility] 12/09/20 at 1000, Last dose on [facility] 12/09/20 at 1200, Routine hydrocortis 2020-02- No 60mg 60 mg, IV Univers one sod 12-09 Piggyback, ity o f succ 13:43: 14:47 DAILY, [place] (CORTEF) 60 13 :30 First dose Me dical mg in NaCl (after Branch 0.9% (NS) last piggyback modificati on) on [facility] 12/09/20 at 0900, Until Discontinu ed, Administer over 30 Minutes, 60 mL iopamidol 2020-02- No [id number] 120mL 120 mL, Univers (ISOVUE 12-08 Intravenou ity o f 370-500 mL) 17:23: 17:24 s, ONCE, 1 [place] injection 00 :00 dose, On Medica l 120 mL [facility] 12/08/20 at 1245, Routine KCL 2020-02- No 20meq 20 mEq, Univers (KLOR-CON 0- Oral, ity of M20) tablet 14:00: 14:47 DAILY, [place] 20 mEq 00 :30 First dose Medical on Sun12/08/20 at 0900, Until Discontinu ed, Routine hydrocortis 2020-02- No 60mg 60 mg, IV Univers one sod 12-09 Piggyback, ity o f succ 01:00: 13:43 Q12H, [place] (CORTEF) 60 00 :20 First dose Me dical mg in NaCl (after Branch 0.9% (NS) last piggyback modificati on) on Sun12/07/20 at 2000, Until Discontinu ed, Administer over 30 Minutes, 60 mL lidocaine 2020-02 Yes 5mL 5 mL, Univers 1% (PF) 0- Subcutaneo ity of (XYLOCAINE) 18:44: us, PRN, [place] injection 5 15 Starting Medi bernadine mL on Sun [place] 12/07/20 at 1344, Until Discontinu ed, Routine, Local anesthesia NaCl 0.9% 2020-02 Yes 10mL 10 mL, Univer s (NS) 0-26 Slow IV ity of injection 17:49: Push, PRN, [place] 10 mL 04 Starting Medical on Sun [place] 12/07/20 at 1249, Until Discontinu ed, Routine, line maintenanc e KCL 2020-02- No 20meq 20 mEq, Univers (KLOR-CON 0- 10- Oral, ity of M20) tablet 14:45: 13:52 ONCE, 1 [place] 20 mEq 00 :00 dose, On Medical Sun [place] 12/07/20 at 0945, Routine diphenoxyla 2020-02 Yes [...] First dose [place] mg 00 on [facility] Medical 12/06/20 Branch at 2100, Until Discontinu ed, Routine Nitrofurant 2020-02- No 100mg 100 mg, U nivers oin&Nit. 0-07 12- Oral, BID, ity of Macrocryst 01:00: 16:54 First dose [place] (MACROBID) 00 :09 on [facility] Medical 100 mg 12/06/20 [place] capsule 100 at 2000, mg Until Discontinu ed, Routine
Reason for Anti-Infec tive: Documented Infection< br>Documen karly Infection Site: Urine
D uration of Therapy: 7 days lactobacill 2020-02 Yes .5mg 0.5 mg, Uni vers us 0-25 Oral, TID, ity of acidophilus 19:00: First dose [place] tablet 0.5 00 on [facility] Medical mg 12/06/20 Branch at 1400, Until Discontinu ed, Routine diphenoxyla 2020-02- No 1{tbl} 1 tablet, Univers te-atropine 0-12-07 Oral, TID, i ty of (LOMOTIL) 19:00: 02:34 First dose [place] 2.5-0.025 00 :00 (after Medical mg tablet 1 last Branch tablet modificati on) on [facility] 12/06/20 at 1400, Until Discontinu ed, Routine vancomycin 2020-02- No 15mg/kg 1,250 mg Univers 1250 mg in 012-09 (rounded ity of NS 250 mL 18:30: 23:35 from ,305 [place] RTU IV 00 :38 mg = 15 Medical [place] mg/kg ?87 Branc h 1,250 mg kg), IV [place], Q12H ABX, First dose (after last modificati on) on [facility] 12/06/20 at 1330, Until Discontinu ed, Administer over 90 Minutes
Reason for Anti-Infec tive: Empiric Therapy for Suspected Infection< br>Empiric Therapy Site: Blood
D uration of therapy: 7 days metoprolol 2020-02 Yes 25mg 25 mg, Unive rs succinate 0-25 Oral, ity of XL (TOPROL 14:00: DAILY, [place] XL) tablet 00 First dose Med ical 25 mg on [facility] Branch 12/06/20 at 0900, Until Discontinu ed foLIC acid 2020-02 Yes 3mg 3 mg, Univer s (FOLATE) 0-25 Oral, ity of tablet 3 mg 14:00: DAILY, [place] 00 First dose Medical on [facility] Branch 12/06/20 at 0900, Until Discontinu ed, Routine diphenoxyla 2020-02- No 1{tbl} 1 tablet, Univers te-atropine 0-25 10-25 Oral, ity of (LOMOTIL) 14:00: 17:51 DAILY, [place] 2.5-0.025 00 :45 First dose Medi bernadine mg tablet 1 on [facility] tablet 12/06/20 at 0900, Until Discontinu ed, Routine gabapentin 2020-02 Yes 600mg 600 mg, Uni vers (NEURONTIN) 0-25 Oral, TID, it y of tablet 600 13:00: First dose [place] mg 00 on [facility] 12/06/20 Branch at 0800, Until Discontinu ed, Routine hydrocortis 2020-02 No 60mg 60 mg, IV Univers one sod 0-25 -26 [place], ity o f succ 11:00: 22:27 Q8H, First [place] (CORTEF) 60 00 :12 dose on Medic al mg in NaCl [facility] Branch 0.9% (NS) 12/06/20 piggyback at 0600, Until Discontinu ed, Administer over 30 Minutes, 60 mL HYDROcodone 2020-02 Yes 1{tbl} 1 tablet, Univers -acetaminop 0-25 Oral, ity of hen (NORCO) 09:21: Q6HPRN, [place] as 10-325 mg 08 Starting Medica l tablet 1 on [facility] Branch tablet 12/06/20 at 0421, Until Discontinu ed, Routine, Pain (scale 7-10) alum-mag 2020-02 Yes 30mL 30 mL, Univers hydroxide-s 0-25 Oral, ity of imeth 09:20: Q6HPRN, [place] (MAALOX 42 Starting Medical PLUS / on [...] IV [place], Q12H ABX, First dose on [place] 12/05/20 at 2330, Until Discontinu ed, Administer over 90 Minutes
Reason for Anti-Infec tive: Empiric Therapy for Suspected Infection< br>Empiric Therapy Site: Blood
D uration of therapy: 7 days heparin 2020-02 Yes 5000U 5,000 Univers (porcine) 0-25 Units, ity of injection 03:00: Subcutaneo [place] 5,000 Units 00 us, Q8H, [facility] First dose Branch on [place] 12/05/20 at 2200, Until Discontinu ed, Routine busPIRone 2020-02 Yes 20mg 20 mg, Univer s (BUSPAR) 0-25 Oral, TID, ity o f tablet 20 02:30: First dose [place] mg 00 (after Medical last Branch modificati on) on [place] 12/05/20 at 2130, Until Discontinu ed, Routine morpHINE 2020-02- No 2mg 2 mg, Slow Un matt injection 2 0-25 10-25 IV Push, ity of mg 02:26: 09:22 Q4HPRN, [place] 54 :17 Starting Medical on Sun Branch [...] mL 00 :00 dose, On Medical (ISO-OSM) [facility] RTU IV 12/05/20 infusion 2 at 2014, g Routine potassium 2020-02 No 10meq 10 mEq, IV Univers chloride in 0-25 10-25 [place], i ty of water 10 01:00: 03:07 Q1H, 4 [place] mEq/100 mL 00 :43 doses, Medical RTU 10 mEq First dose Bra nch on [place] 12/05/20 at 1999, Last dose on [place] 12/05/20 at 2300, Administer over 60 Minutes, 100 mL KCL 2020-02 No 40meq 40 mEq, Univers (KLOR-CON 0-25 10-25 Oral, Q1H, ity of M20) tablet 01:00: 02:59 2 doses, [place] 40 mEq 00 :00 First dose Medical on [place] Branch 12/05/20 at 2000, Last dose on [place] 12/05/20 at 2100, Routine NaCl 0.9% 2020-02- No 1000mL at 150 Uni vers (NS) IV 0-24 10-26 mL/hr, ity of infusion 22:45: 20:37 Intravenou [place] 1,000 mL 00 :12 s, [facility] Branch , Starting on [place] 12/05/20 at 1745, Until Sun12/07/20 at 1537, Routine piperacilli 2020-02 No 3.375g 3.375 g, Univers n-tazobacta 0-24 10-24 IV ity of m (ZOSYN) 21:45: 21:08 [place], [place] 3.375 g in 00 :00 ONCE, 1 Medica l NaCl 0.9% dose, On Branch (NS) 100 mL [place] MINI-BAG 12/05/20 at 1645, Administer over 30 [...] IV Push, ity of (PF)) 21:29: Q6HPRN, [place] injection 4 30 Starting Medi bernadine mg on [facility] 12/05/20 at 1629, Until Discontinu ed, Routine, Nausea and Vomiting (N/V) acetaminoph 2020-02 Yes 650mg 650 mg, Un matt en 0-24 Oral, ity of (TYLENOL) 21:29: Q6HPRN, [place] tablet 650 19 Starting Medic al mg on [facility] 12/05/20 at 1629, Until Discontinu ed, Routine, Pain (scale 1-3), Temp > 38.5 C dicyclomine 2020-02- No 20mg Take 20 mg Univers 20 mg 0-24 10-24 by mouth 3 ity of tablet 21:23: 00:00 (three) [place] 29 :00 times Medical daily. Branch erenumab-ao [...] dose Me dical 400 mg on [facility] [place] 07/15/20 at 0900, Until Discontinu ed, Routine busPIRone 2020-0 Yes 20mg 20 mg, Univer s (BUSPAR) 6-03 Oral, BID, ity o f tablet 20 01:00: First dose [place] mg 00 on Wed [facility] 07/14/20 at Branch 2000, Until Discontinu ed, Routine magnesium 2020-0 Yes [id number] 400mg Take 400 Univers oxide 420 6-03 mg by ity of mg Tab 00:00: mouth [place] 00 daily. [facility] magnesium 2020-0 Yes [id number] 400mg Take 400 Univers oxide 420 6-03 mg by ity of mg Tab 00:00: mouth [place] 00 daily. [facility] magnesium 2020-0 Yes [id number] 400mg Take 400 Univers oxide 420 6-03 mg by ity of mg Tab 00:00: mouth [place] 00 daily. [facility] magnesium 2020-0 Yes [id number] 400mg Take 400 Univers oxide 420 6-03 mg by ity of mg Tab 00:00: mouth [place] 00 daily. [facility] magnesium 2020-0 Yes [id number] 400mg Take 400 Univers oxide 420 6-03 mg by ity of mg Tab 00:00: mouth [place] 00 daily. [facility] magnesium 2020-0 Yes [id number] 400mg Take 400 Univers oxide 420 6-03 mg by ity of mg Tab 00:00: mouth [place] 00 daily. Medical [place] magnesium 2020-0 Yes [id number] 400mg Take 400 Univers oxide 420 6-03 mg by ity of mg Tab 00:00: mouth [place] 00 daily. Medical [place] magnesium 2020-0 Yes [id number] 400mg Take 400 Univers oxide 420 6-03 mg by ity of mg Tab 00:00: mouth [place] 00 daily. [facility] magnesium 2020-0 Yes [id number] 400mg Take 400 Univers oxide 420 6-03 mg by ity of mg Tab 00:00: mouth [place] 00 daily. [facility] magnesium 2020-0 Yes [id number] 400mg Take 400 Univers oxide 420 6-03 mg by ity of mg Tab 00:00: mouth [place] 00 daily. [facility] magnesium 2020-0 Yes [id number] 400mg Take 400 Univers oxide 420 6-03 mg by ity of mg Tab 00:00: mouth [place] 00 daily. Medical Branch magnesium 2020-0 Yes [id number] 400mg Take 400 Univers oxide 420 6-03 mg by ity of mg Tab 00:00: mouth [place] 00 daily. Medical Branch magnesium 2020-0 Yes [id number] 400mg Take 400 Univers oxide 420 6-03 mg by ity of mg Tab 00:00: mouth [place] 00 daily. Medical Branch magnesium 2020-0 Yes [id number] 400mg Take 400 Univers oxide 420 6-03 mg by ity of mg Tab 00:00: mouth [place] 00 daily. Medical Branch magnesium 2020-0 2021- No [id number] 400mg Take 400 Univers oxide 420 6-03 [...] dose on [facility] 07/15/20 at 0600, Routine
member service specialist approving Restricted medication : CHRISTINA ROQUE Sliding [...] Oral, ity of XL (TOPROL 14:00: DAILY, [place] XL) tablet 00 First dose Med ical [...] dose, Sun Branch 07/14/20 at 0615, Routine
member service specialist approving Restricted medication : CHRISTINA ROQUE magnesium [...] 07-14 Oral, ity of (TYLENOL) 10:11: Q6HPRN, [place] tablet 650 51 Starting Medic al mg [...] :00 ONCE, 1 Medical 25 mg dose, [facility] 07/13/20 at 1999, STAT metoclopram 2020- No 10mg 10 mg, Uni vers marilyn HCl 07-14 Slow IV ity of (REGLAN) 01:00: 09:39 Push, [place] injection 00 :00 ONCE, 1 Medical 10 mg dose, [facility] 07/13/20 at 1999, GIGI amitriptyli Yes [id number] 25mg Take 1 Univers ne 25 mg 6-02 tablet by ity of tablet 00:00: mouth at [place] [address] bedtime. Medical Branch riboflavin, Yes [id number] 400mg Take 400 Univers vitamin B2, 6-02 mg by ity of 400 mg Tab 00:00: mouth [place] 00 daily. Medical Branch amitriptyli Yes [id number] 25mg Take 1 Univers ne 25 mg 6-02 tablet by ity of tablet 00:00: mouth at [place] [address] bedtime. Medical Branch riboflavin, Yes [id number] 400mg Take 400 Univers vitamin B2, 6-02 mg by ity of 400 mg Tab 00:00: mouth [place] 00 daily. Medical Branch amitriptyli Yes [id number] 25mg Take 1 Univers ne 25 mg 6-02 tablet by ity of tablet 00:00: mouth at [place] 00 bedtime. Medical Branch riboflavin, Yes [id number] 400mg Take 400 Univers vitamin B2, 6-02 mg by ity of 400 mg Tab 00:00: mouth [place] 00 daily. Medical Branch amitriptyli Yes [id number] 25mg Take 1 Univers ne 25 mg 6-02 tablet by ity of tablet 00:00: mouth at [place] bedtime. Medical Branch riboflavin, Yes [id number] 400mg Take 400 Univers vitamin B2, 6-02 mg by ity of 400 mg Tab 00:00: mouth [place] 00 daily. Medical Branch amitriptyli Yes [id number] 25mg Take 1 Univers ne 25 mg 6-02 tablet by ity of tablet 00:00: mouth at [place] bedtime. Medical Branch riboflavin, Yes [id number] 400mg Take 400 Univers vitamin B2, 6-02 mg by ity of 400 mg Tab 00:00: mouth [place] 00 daily. Medical Branch amitriptyli Yes [id number] 25mg Take 1 Univers ne 25 mg 6-02 tablet by ity of tablet 00:00: mouth at [place] bedtime. Medical Branch riboflavin, Yes [id number] 400mg Take 400 Univers vitamin B2, 6-02 mg by ity of 400 mg Tab 00:00: mouth daily. Medical Branch amitriptyli Yes [id number] 25mg Take 1 Univers ne 25 mg 6-02 tablet by ity of tablet 00:00: mouth at [place] bedtime. Medical Branch riboflavin, Yes [id number] 400mg Take 400 Univers vitamin B2, 6-02 mg by ity of 400 mg Tab 00:00: mouth [place] daily. Medical Branch amitriptyli Yes [id number] 25mg Take 1 Univers ne 25 mg 6-02 tablet by ity of tablet 00:00: mouth at [place] bedtime. Medical Branch riboflavin, Yes [id number] 400mg Take 400 Univers vitamin B2, 6-02 mg by ity of 400 mg Tab 00:00: mouth [place] 00 daily. Medical Branch amitriptyli Yes [id number] 25mg Take 1 Univers ne 25 mg 6-02 tablet by ity of tablet 00:00: mouth at [place] bedtime. Medical Branch riboflavin, Yes [id number] 400mg Take 400 Univers vitamin B2, 6-02 mg by ity of 400 mg Tab 00:00: mouth [place] 00 daily. Medical Branch amitriptyli Yes [id number] 25mg Take 1 Univers ne 25 mg 6-02 tablet by ity of tablet 00:00: mouth at [place] 00 bedtime. Medical Branch riboflavin, Yes [id number] 400mg Take 400 Univers vitamin B2, 6-02 mg by ity of 400 mg Tab 00:00: mouth [place] 00 daily. Medical Branch amitriptyli Yes [id number] 25mg Take 1 Univers ne 25 mg 6-02 tablet by ity of tablet 00:00: mouth at [place] 00 bedtime. Medical Branch riboflavin, Yes [id number] 400mg Take 400 Univers vitamin B2, 6-02 mg by ity of 400 mg Tab 00:00: mouth [place] 00 daily. Medical Branch amitriptyli Yes [id number] 25mg Take 1 Univers ne 25 mg 6-02 tablet by ity of tablet 00:00: mouth at [place] 00 bedtime. Medical Branch riboflavin, Yes [id number] 400mg Take 400 Univers vitamin B2, 6-02 mg by ity of 400 mg Tab 00:00: mouth [place] 00 daily. Medical Branch amitriptyli Yes [id number] 25mg Take 1 Univers ne 25 mg 6-02 tablet by ity of tablet 00:00: mouth at [place] 00 bedtime. Medical Branch riboflavin, Yes [id number] 400mg Take 400 Univers vitamin B2, 6-02 mg by ity of 400 mg Tab 00:00: mouth [place] 00 daily. Medical Branch amitriptyli Yes [id number] 25mg Take 1 Univers ne 25 mg 6-02 tablet by ity of tablet 00:00: mouth at [place] 00 bedtime. Medical Branch riboflavin, Yes [id number] 400mg Take 400 Univers vitamin B2, 6-02 mg by ity of 400 mg Tab 00:00: mouth [place] 00 daily. Medical Branch amitriptyli 2020- No [id number] 25mg Take 1 Univers ne 25 mg 6-02 10-24 tablet by ity o f tablet 00:00: 00:00 mouth at [place] 00 :00 bedtime. Medical Branch riboflavin, 2020- No [id number] 400mg Take 400 Univers vitamin B2, 6-02 10-24 mg by ity of 400 mg Tab 00:00: 00:00 mouth [place] 00 :00 daily. Medical Branch metoprolol 2020- No 5mg 5 mg, Slow Univers (LOPRESSOR) 07-07 IV Push, ity of injection 5 04:15: 03:20 [place]CE, 1 [place] :[place] dose, [facility] Medical 07/06/20 at Branch 2315, GIGI ondansetron 2020- No 4mg 4 mg, Slow Univers (ZOFRAN 07-07 IV Push, ity of (PF)) 04:15: 03:20 ONCE, 1 [place] injection 4 00 :00 dose, [facility] Med ical mg 07/06/20 at Branch 2315, GIGI morpHINE 2020- No 4mg 4 mg, Slow Un matt injection 4 07-07 IV Push, ity of mg 04:15: 03:20 ONCE, 1 [place] 00 :00 dose, [facility] 07/06/20 at Branch 2315, STAT LORazepam 2020- No 2mg 2 mg, Univer s (ATIVAN) 07-07 Intramuscu ity of injection 2 03:30: 02:26 lar, ONCE, [place] mg 00 :00 1 dose, Medical [facility] 07/06/20 at 2230, STAT cloNIDine 2020-2020- No .2mg 0.2 mg, Univ ers (CATAPRES) 07-07 Oral, ity of tablet 0.2 03:00: 01:58 ONCE, 1 [place] mg 00 :00 dose, [facility] 07/06/20 at Branch 2200, STAT ondansetron 2020- No 4mg 4 mg, Univ ers (ZOFRAN-ODT 07-07 Oral, ity of ) 02:00: 01:10 ONCE, 1 [place] disintegrat 00 :00 dose, [facility] Med ical ing tablet 07/06/20 at [facility] 4 mg 2100, Routine butorphanol 2020- No 2mg 2 mg, Univ ers (STADOL) 07-07 Intramuscu ity of injection 2 02:00: 01:10 lar, ONCE [place] mg 00 :00 NOW, 1 Medical dose, [facility] 07/06/20 at 2100, Routine ondansetron 2021-0 Yes [id number] 4mg Take 1 Univers (ZOFRAN) 4 5-25 tablet by ity of mg tablet 00:00: mouth [place] 00 every 8 Medical (eight) Branch hours as needed for Nausea and Vomiting (N/V). ondansetron 2020-0 Yes [id number] 4mg Take 1 Univers (ZOFRAN) 4 5-25 tablet by ity of mg tablet 00:00: mouth [place] 00 every 8 Medical (eight) Branch hours as needed for Nausea and Vomiting (N/V). ondansetron 2020-0 Yes [id number] 4mg Take 1 Univers (ZOFRAN) 4 5-25 tablet by ity of mg tablet 00:00: mouth [place] 00 every 8 Medical (eight) Branch hours as needed for Nausea and Vomiting (N/V). ondansetron 2020-0 Yes [id number] 4mg Take 1 Univers (ZOFRAN) 4 5-25 tablet by ity of mg tablet 00:00: mouth [place] 00 every 8 Medical (eight) Branch hours as needed for Nausea and Vomiting (N/V). ondansetron 2020-0 Yes [id number] 4mg Take 1 Univers (ZOFRAN) 4 5-25 tablet by ity of mg tablet 00:00: mouth [place] 00 every 8 Medical (eight) Branch hours as needed for Nausea and Vomiting (N/V). ondansetron 2020-0 Yes [id number] 4mg Take 1 Univers (ZOFRAN) 4 5-25 tablet by ity of mg tablet 00:00: mouth [place] 00 every 8 Medical (eight) Branch hours as needed for Nausea and Vomiting (N/V). ondansetron 2020-0 Yes [id number] 4mg Take 1 Univers (ZOFRAN) 4 5-25 tablet by ity of mg tablet 00:00: mouth [place] 00 every 8 Medical (eight) Branch hours as needed for Nausea and Vomiting (N/V). ondansetron 1-0 Yes [id number] 4mg Take 1 Univers (ZOFRAN) 4 5-25 tablet by ity of mg tablet 00:00: mouth [place] 00 every 8 Medical (eight) Branch hours as needed for Nausea and Vomiting (N/V). ondansetron 2020-0 Yes [id number] 4mg Take 1 Univers (ZOFRAN) 4 5-25 tablet by ity of mg tablet 00:00: mouth [place] 00 every 8 Medical (eight) Branch hours as needed for Nausea and Vomiting (N/V). ondansetron 2020-0 Yes [id number] 4mg Take 1 Univers (ZOFRAN) 4 5-25 tablet by ity of mg tablet 00:00: mouth [place] 00 every 8 Medical (eight) Branch hours as needed for Nausea and Vomiting (N/V). ondansetron 2020-0 Yes [id number] 4mg Take 1 Univers (ZOFRAN) 4 5-25 tablet by ity of mg tablet 00:00: mouth [place] 00 every 8 Medical (eight) Branch hours as needed for Nausea and Vomiting (N/V). ondansetron 2020-0 Yes [id number] 4mg Take 1 Univers (ZOFRAN) 4 5-25 tablet by ity of mg tablet 00:00: mouth [place] 00 every 8 Medical (eight) Branch hours as needed for Nausea and Vomiting (N/V). ondansetron 2020-0 Yes [id number] 4mg Take 1 Univers (ZOFRAN) 4 5-25 tablet by ity of mg tablet 00:00: mouth [place] 00 every 8 Medical (eight) Branch hours as needed for Nausea and Vomiting (N/V). ondansetron 2020-0 Yes [id number] 4mg Take 1 Univers (ZOFRAN) 4 5-25 tablet by ity of mg tablet 00:00: mouth [place] 00 every 8 Medical (eight) Branch hours as needed for Nausea and Vomiting (N/V). ondansetron 2020-0 Yes [id number] 4mg Take 1 Univers (ZOFRAN) 4 5-25 tablet by ity of mg tablet 00:00: mouth [place] 00 every 8 Medical (eight) Branch hours as needed for Nausea and Vomiting (N/V). ondansetron 1-0 Yes [id number] 4mg Take 1 Univers (ZOFRAN) 4 5-25 tablet by ity of mg tablet 00:00: mouth [place] 00 every 8 Medical (eight) Branch hours as needed for Nausea and Vomiting (N/V). ondansetron 2020-0 Yes [id number] 4mg Take 1 Univers (ZOFRAN) 4 5-25 tablet by ity of mg tablet 00:00: mouth [place] 00 every 8 Medical (eight) Branch hours as needed for Nausea and Vomiting (N/V). ondansetron Yes [id number] 4mg Take 1 Univers (ZOFRAN) 4 5-25 tablet by ity of mg tablet 00:00: mouth [place] 00 every 8 Medical (eight) Branch hours as needed for Nausea and Vomiting (N/V). ondansetron Yes [id number] 4mg Take 1 Univers (ZOFRAN) 4 5-25 tablet by ity of mg tablet 00:00: mouth [place] 00 every 8 Medical (eight) Branch hours as needed for Nausea and Vomiting (N/V). ondansetron Yes [id number] 4mg Take 1 Univers (ZOFRAN) 4 5-25 tablet by ity of mg tablet 00:00: mouth [place] 00 every 8 Medical (eight) Branch hours as needed for Nausea and Vomiting (N/V). ondansetron Yes [id number] 4mg Take 1 [facility] (ZOFRAN) 4 5-25 tablet by ity of mg tablet 00:00: mouth [place] 00 every 8 Medical (eight) Branch hours as needed for Nausea and Vomiting (N/V). ondansetron 2020- No [id number] 4mg Take 1 [facility] (ZOFRAN) 4 5-25 [...] [place] 25 mg in 00 :00 dose, [place] [facility] l NaCl 0.9% 07/04/20 at Bran [...] mL 00 :00 ONCE, 1 Medical dose, [facility] 07/04/20 at 1430, Routine dexamethaso 2020- No 10mg 10 mg, IV Univers ne 07-04 Push, ity of (DECADRON 19:30: 19:02 ONCE, 1 [place] PHOSPH[place] 00 :00 dose, [facility] bernadine injection 07/04/20 at [facility] 10 mg 1430, STAT butalbital- 2020- No 2{tbl} 2 tablet, Univers acetaminoph 07-04 Oral, ity of en-caff 19:30: 18:40 ONCE, 1 [place] (ESGIC) 00 :00 dose, [facility] 50-325-40 07/04/20 at Bran ch mg tablet 2 1430, tablet Routine butalbital- Yes [id number] 1{tbl} Take 1 [facility] acetaminoph 5-23 tablet by ity of en-caff 00:00: mouth [place] 50-325-40 00 every 6 Medical mg tablet (six) Branch hours as needed for Pain (scale 7-10). butalbital- Yes [id number] 1{tbl} Take 1 [facility] acetaminoph 5-23 tablet by ity of en-caff 00:00: mouth [place] 50-325-40 00 every 6 Medical mg tablet (six) Branch hours as needed for Pain (scale 7-10). butalbital- Yes [id number] 1{tbl} Take 1 [facility] acetaminoph 5-23 tablet by ity of en-caff 00:00: mouth [place] 50-325-40 00 every 6 Medical mg tablet (six) Branch hours as needed for Pain (scale 7-10). butalbital- Yes [id number] 1{tbl} Take 1 [facility] acetaminoph 5-23 tablet by ity of en-caff 00:00: mouth [place] 50-325-40 00 every 6 Medical mg tablet (six) Branch hours as needed for Pain (scale 7-10). butalbital- Yes [id number] 1{tbl} Take 1 [facility] acetaminoph 5-23 tablet by ity of en-caff 00:00: mouth [place] 50-325-40 00 every 6 Medical mg tablet (six) Branch hours as needed for Pain (scale 7-10). butalbital- Yes [id number] 1{tbl} Take 1 [facility] acetaminoph 5-23 tablet by ity of en-caff 00:00: mouth [place] 50-325-40 00 every 6 Medical mg tablet (six) Branch hours as needed for Pain (scale 7-10). butalbital- Yes [id number] 1{tbl} Take 1 [facility] acetaminoph 5-23 tablet by ity of en-caff 00:00: mouth [place] 50-325-40 00 every 6 Medical mg tablet (six) Branch hours as needed for Pain (scale 7-10). butalbital Yes [id number] 1{tbl} Take 1 [facility] acetaminoph 5-23 tablet by ity of en-caff 00:00: mouth [place] 50-325-40 00 every 6 Medical mg tablet (six) Branch hours as needed for Pain (scale 7-10). butalbital Yes [id number] 1{tbl} Take 1 [facility] acetaminoph 5-23 tablet by ity of en-caff 00:00: mouth [place] 50-325-40 00 every 6 Medical mg tablet (six) Branch hours as needed for Pain (scale 7-10). butalbital- Yes [id number] 1{tbl} Take 1 [facility] acetaminoph 5-23 tablet by ity of en-caff 00:00: mouth [place] 50-325-40 00 every 6 Medical mg tablet (six) Branch hours as needed for Pain (scale 7-10). butalbital Yes [id number] 1{tbl} Take 1 Univers acetaminoph 5-23 tablet by ity of en-caff 00:00: mouth [place] 50-325-40 00 every 6 Medical mg tablet (six) Branch hours as needed for Pain (scale 7-10). butalbital Yes [id number] 1{tbl} Take 1 Univers acetaminoph 5-23 tablet by ity of en-caff 00:00: mouth [place] 50-325-40 00 every 6 Medical mg tablet (six) Branch hours as needed for Pain (scale 7-10). butalbital Yes [id number] 1{tbl} Take 1 [facility] acetaminoph 5-23 tablet by ity of en-caff 00:00: mouth [place] 50-325-40 00 every 6 Medical mg tablet (six) Branch hours as needed for Pain (scale 7-10). butalbital- Yes [id number] 1{tbl} Take 1 [facility] acetaminoph 5-23 tablet by ity of en-caff 00:00: mouth [place] 50-325-40 00 every 6 Medical mg tablet (six) Branch hours as needed for Pain (scale 7-10). butalbital- Yes [id number] 1{tbl} Take 1 [facility] acetaminoph 5-23 tablet by ity of en-caff 00:00: mouth [place] 50-325-40 00 every 6 Medical mg tablet (six) Branch hours as needed for Pain (scale 7-10). butalbital- Yes [id number] 1{tbl} Take 1 [facility] acetaminoph 5-23 tablet by ity of en-caff 00:00: mouth [place] 50-325-40 00 every 6 Medical mg tablet (six) Branch hours as needed for Pain (scale 7-10). butalbital- Yes [id number] 1{tbl} Take 1 [facility] acetaminoph 5-23 tablet by ity of en-caff 00:00: mouth [place] 50-325-40 00 every 6 Medical mg tablet (six) Branch hours as needed for Pain (scale 7-10). butalbital- Yes [id number] 1{tbl} Take 1 Univers acetaminoph 5-23 tablet by ity of en-caff 00:00: mouth [place] 50-325-40 00 every 6 Medical mg tablet (six) Branch hours as needed for Pain (scale 7-10). butalbital- Yes [id number] 1{tbl} Take 1 [facility] acetaminoph 5-23 tablet by ity of en-caff 00:00: mouth [place] 50-325-40 00 every 6 Medical mg tablet (six) Branch hours as needed for Pain (scale 7-10). butalbital- Yes [id number] 1{tbl} Take 1 [facility] acetaminoph 5-23 tablet by ity of en-caff 00:00: mouth [place] 50-325-40 00 every 6 Medical mg tablet (six) Branch hours as needed for Pain (scale 7-10). butalbital- Yes [id number] 1{tbl} Take 1 [facility] acetaminoph 5-23 tablet by ity of en-caff 00:00: mouth [place] 50-325-40 00 every 6 Medical mg tablet (six) Branch hours as needed for Pain (scale 7-10). butalbital- Yes [id number] 1{tbl} Take 1 [facility] acetaminoph 5-23 tablet by ity of en-caff 00:00: mouth [place] 50-325-40 00 every 6 Medical mg tablet (six) Branch hours as needed for Pain (scale 7-10). butalbital- 2020- No [id number] 1{tbl} Take 1 Univers acetaminoph 5-23 10-24 [...] mouth 3 ity of tablet 00:16: (three) [place] 46 times Medical daily. Branch erenumab-ao 0 [...] 1 [place] mg 00 :00 dose, [facility] 06/28/20 at Branch 1645, Routine loperamide 2020- No 2mg 2 mg, Unive rs (IMODIUM 06-28 Oral, ity of A-D) 21:30: 22:26 ONCE, 1 [place] capsule 2 00 :00 dose, Mon Medic al mg 06/28/20 at Branch 1630, Routine LORazepam Yes 1mg 1 mg, Univers (ATIVAN) 06-28 Oral, ity of tablet 1 mg 20:40: QHSPRN, 2 [place] 49 doses, Medical Starting [facility] 06/28/20 at 1540, Until Discontinu ed, Routine, Anxiety butorphanol 2020- No 1mg 1 mg, IV U nivers (STADOL) 06-28 Push, ity of injection 1 15:35: 20:07 ONCE, 1 [place] mg 00 :00 dose, [facility] 06/28/20 at Branch 1045, Routine proMETHazin Yes 25mg 25 mg, IV U nivers e 06-28 Piggyback, ity of (PHENERGAN) 13:15: Q6HPRN, [place] 25 mg in 38 Starting Medical NaCl 0.9% [facility] (NS) 50 mL 06/28/20 at IV 0815, piggyback Until Discontinu ed, Routine, Nausea and Vomiting (N/V) hydrOXYzine Yes 10mg 10 mg, Univ ers (ATARAX) 06-28 Oral, ity of tablet 10 06:58: Q6HPRN, [place] mg 54 Starting Medical [facility] 06/28/20 at 0158, Until Discontinu ed, Routine, Anxiety melatonin Yes 3mg 3 mg, Univers (MELATIN) 06-28 Oral, QHS, ity of tablet 3 mg 02:00: First dose [place] [facility] on [facility] 06/27/20 at Branch 2100, Until Discontinu ed, Routine butalbital- 2021-0 Yes 1{tbl} 1 tablet, Univers acetaminoph 5-17 Oral, ity of en-caff 01:06: Q6HPRN, [place] (ESGIC) 14 Starting Medical 50-325-40 Sun Branch [...] by ity of tablet 00:00: mouth 3 [place] (three) Medical times Branch daily. cyclobenzap 2020-0 Yes 5mg Take 1 Univ ers rine 5 mg 5-17 tablet by ity o f tablet 00:00: mouth 3 [place] 00 (three) Medical times Branch daily. busPIRone 2020-0 Yes 20mg Take 2 Univer s 10 mg 5-17 tablets by ity of tablet 00:00: mouth 3 [place] 00 (three) Medical times Branch daily. LORazepam 1 2020-0 Yes 1mg Take 1 Univ ers mg tablet 5-17 tablet by ity o f 00:00: mouth at [place] 00 bedtime as Medical needed for Branch [...] by ity of tablet 00:00: mouth 3 [place] 00 (three) Medical times Branch daily. cyclobenzap [...] by ity o f 00:00: mouth at [place] 00 bedtime as Medical needed for Branch [...] by ity o f 00:00: mouth at [place] 00 bedtime as Medical needed for Branch [...] by ity o f 00:00: mouth at [place] 00 bedtime as Medical needed for Branch [...] by ity o f 00:00: mouth at [place] 00 bedtime as Medical needed for Branch [...] 4 04 :50 Starting Medi bernadine mg [place] Branch 06/27/20 at 1625, Until 06/28/20 at [...] Q6HPRN, [place] mg 19 Starting Medical [place] Branch 06/27/20 at 1049, Until Discontinu ed, Routine, Pain (scale 4-6) pantoprazol 0 Yes 40mg 40 mg, Univ ers e 5-16 Oral, ity of (PROTONIX) 14:00: DAILY, [place] EC tablet 00 First dose Medi bernadine 40 mg on [facility] 06/27/20 at 0900, Until Discontinu ed, Routine losartan Yes 50mg 50 mg, Univers (COZAAR) 5-16 Oral, ity of tablet 50 14:00: DAILY, [place] mg 00 First dose Medical on [facility] 06/27/20 at 0900, Until Discontinu ed, Routine metoprolol Yes 25mg 25 mg, Unive rs succinate 5-16 Oral, ity of XL (TOPROL 14:00: DAILY, [place] XL) tablet 00 First dose Med ical 25 mg on [facility] 06/27/20 at 0900, Until Discontinu ed azaTHIOprin Yes 150mg 150 mg, Un matt e (IMURAN) 5-16 Oral, ity of tablet 150 14:00: DAILY, [place] mg 00 First dose Medical on [facility] 06/27/20 at 0900, Until Discontinu ed, Routine heparin Yes 5000U 5,000 Univers (porcine) 5-16 Units, ity of injection 13:00: Subcutaneo [place] 5,000 Units 00 us, Q12H, Med ical First dose Branch on [place] 06/27/20 at 0800, Until Discontinu ed, Routine [...] Sat Medi bernadine (4 %) 06/26/20 at [place] infusion 2 2315, GIGI g valproate 2020- No 500mg 500 mg, IV Univers (DEPACON) 06-27 Piggyback, ity of 500 mg in 04:15: 04:54 ONCE, 1 [place] D5W 00 :00 dose, [facility] Medical piggyback 06/26/[address] [facility] ch 2315, 100 mL LORazepam 2020- No 1mg 1 mg, Univer s (ATIVAN) 06-27 Oral, QHS, ity of tablet 1 mg 04:00: 01:27 2 doses, [place] 00 :00 First dose Medical (after Branch last modificati on) on [facility] 06/26/20 at 2300, Last dose on [place] 06/27/20 at 2100, Routine proMETHazin 2020- No [...] inFLIXimab 04 :00 Medical 100 mg SolR [place] acetaminoph Yes 650mg 650 mg, Un matt [...] 06-27 IV ity of (PHENERGAN) 01:15: 00:18 [facility], [place] 12.5 mg in 00 :00 ONCE, 1 Medica l NaCl 0.9% dose, Sat Branc h (NS) 50 mL 06/26/20 at piggyback 2014, 50 mL morpHINE 2020- No 4mg 4 mg, Slow Un matt injection 4 06-27 IV Push, ity of mg 01:15: 00:18 ONCE, 1 [place] 00 :00 dose, Sat Medical 06/26/20 at Branch 2014, STAT iopamidol 2020- No [id number] 100mL 100 mL, Univers (ISOVUE 06-26 Intravenou [...] ty of en-caff 22:15: 21:26 NOW, 1 [place] (ESGIC) 00 :00 dose, Sat Medical 50-325-40 06/26/20 at Bran ch mg tablet 1 171, GIGI tablet nitroglycer 2020- No .4mg 0.4 mg, Un matt in 06-26 Sublingual ity of (NITROSTAT) 22:15: 21:26 , ONCE, 1 [place] sublingual 00 :00 dose, Sat Medi bernadine tablet 0.4 06/26/20 at Bra nch mg 171, GIGI magnesium 2020- No 2g 2 g, IV Univ ers sulfate in 06-26 Piggyback, it y of water 2 22:15: 23:46 ONCE, 1 [place] gram/50 mL 00 :00 dose, Sat Medi [...] IV ity of (BENADRYL) 21:30: 20:31 Push, [place] injection 00 :00 ONCE, 1 Medical 25 mg dose, Sat Branch 06/26/20 at 1630, STAT metoclopram 2020- No 10mg 10 mg, Uni vers marilyn HCl 06-26 Slow IV ity of (REGLAN) 21:30: 20:30 Push, [place] injection 00 :00 ONCE, 1 Medical 10 mg dose, Sat [place] 06/26/20 at 1630, GIGI ketorolac 2020- No 30mg 30 mg, Unive rs (TORADOL) 06-26-15 Slow IV ity of injection 21:30: 20:31 Push, [place] 30 mg 00 :00 ONCE, 1 Medical dose, Sat [place] 06/26/20 at 1630, GIGI
Fa culty member [...] [place] R) 140 47 Medical mg/mL AtIn [place] phenazopyri 2020- No 200mg 200 mg, U nivers dine 06-02- Oral, ity of (PYRIDIUM) 04:15: 03:34 ONCE, 1 [place] tablet 200 00 :00 dose, Tue Medi bernadine mg 06/01/20 at Branch 2315, Routine pantoprazol 2020- No [id number] 40mg Take 1 Univers e 40 mg EC 06-02 tablet by ity of tablet 00:00: 04:59 mouth [place] 00 :00 daily for Medical 30 days. [place] pantoprazol 2020- No [id number] 40mg Take 1 Univers e 40 mg EC 06-02 tablet by ity of tablet 00:00: 04:59 mouth [place] 00 :00 daily for Medical 30 days. [place] pantoprazol 2020- No [id number] 40mg Take 1 Univers e 40 mg EC 06-02 tablet by ity of tablet 00:00: 04:59 mouth [place] 00 :00 daily for Medical 30 days. [place] HYDROcodone 2020- No [id number] 1{tbl} Take 1 U nivers -acetaminop 06-02-29 tablet by it y of hen 10-325 00:00: 04:59 mouth [place] mg tablet 00 :00 every 6 Medical (six) Branch hours as needed for Pain (scale 4-6) for up to 7 days. Indication s: acute pain proMETHazin 2020- No [id number] 25mg Take 1 Univers e 25 mg [...] mg 48 Starting Medica l tablet 1 [facility] tablet 06/01/20 at 1400, Until Discontinu ed, Routine, Pain (scale 4-6) cefpodoxime 0 2020- No Take by U nivers proxetil 4-20 04-20 mouth. ity of (VANTIN 18:00: 00:00 [place] ORAL) 17 :00 [facility] Branch proMETHazin 0 Yes 25mg 25 mg, Univ ers e 4-20 Oral, ity of (PHENERGAN) 15:20: Q4HPRN, [place] tablet 25 12 Starting Medica l mg [facility] 06/01/20 at 1020, Until Discontinu ed, Routine, Nausea and Vomiting (N/V) acetaminoph 2020- No 1{tbl} 1 tablet, Univers en-codeine -20 04-20 Oral, ity of (TYLENOL 15:18: 19:01 Q4HPRN, [place] #3) 300-30 42 :49 Starting Medic al mg tablet 1 [facility] tablet 06/01/20 at 1018, Until [facility] 06/01/20 at 1401, Routine, Pain (scale 4-6) pantoprazol 0 Yes 40mg 40 mg, Univ ers e 4-20 Oral, ity of (PROTONIX) 14:30: DAILY, [place] EC tablet 00 First dose Medi bernadine 40 mg on [facility] 06/01/20 at 0930, Until Discontinu ed, Routine azaTHIOprin 0 Yes 150mg 150 mg, Un matt e (IMURAN) 4-20 Oral, ity of tablet 150 14:30: DAILY, [place] mg 00 First dose Medical (after Branch last modificati on) on [facility] 06/01/20 at 0930, Until Discontinu ed, Routine morpHINE 0 Yes 2mg 2 mg, Slow Uni vers injection 2 4-20 IV Push, ity of mg 08:26: Q4HPRN, [place] 30 Starting Medical [facility] 06/01/20 at 0326, Until Discontinu ed, Routine, Pain (scale 7-10) morpHINE No 2mg 2 mg, Slow Un matt injection 2 06-01 IV Push, ity of mg 06:00: 05:01 ONCE, 1 [place] 00 :00 dose, [facility] Medical 06/01/20 at Branch 0100, Routine amoxicillin 2020- No [id number] 1{tbl} Take 1 Univers -clavulanat 06-01 tablet by it y of e 00:00: 04:59 mouth 2 [place] (AUGMENTIN) 00 :00 (two) Medical 875-125 mg times Branch per tablet daily for 7 days. proMETHazin 2020- No 25mg 25 mg, IV Univers e 05-31 Piggyback, ity of (PHENERGAN) 22:18: 15:20 Q6HPRN, [place] 25 mg in 42 :48 Starting Medical NaCl 0.9% [facility] (NS) 50 mL 05/31/20 at IV 1718, piggyback Until [facility] 06/01/20 at 1020, Routine, Nausea and Vomiting (N/V) acetaminoph Yes 650mg 650 mg, Un matt en 05-31 Oral, ity of (TYLENOL) 15:33: Q6HPRN, [place] tablet 650 00 Starting Medic al mg [facility] 05/31/20 at 1033, Until Discontinu ed, Routine, Temp > 38.5 C butalbital- Yes 1{tbl} 1 tablet, Univers acetaminoph 05-31 Oral, ity of en-caff 15:27: Q6HPRN, [place] (ESGIC) 07 Starting Medical 50-325-40 Mon Branch mg tablet 1 05/31/20 at tablet 1027, Until Discontinu ed, Routine, Pain (scale 1-3) losartan Yes 50mg 50 mg, Univers (COZAAR) 05-31 Oral, ity of tablet 50 14:00: DAILY, [place] mg 00 First dose Medical (after Branch last modificati on) on [facility] 05/31/20 at 0900, Until Discontinu ed, Routine metoprolol 2021-0 Yes 25mg 25 mg, Unive rs succinate 05-31 Oral, ity of XL (TOPROL 14:00: DAILY, [place] XL) tablet 00 First dose Med ical 25 mg (after Branch last modificati on) on [facility] 05/31/20 at 0900, Until Discontinu ed enoxaparin 2020-0 Yes 40mg 40 mg, Unive rs (LOVENOX) 05-31 Subcutaneo ity of injection 14:00: [place], DAILY, [place] 40 mg 00 First dose Medical on [facility] 05/31/20 at 0900, Until Discontinu ed, Routine azaTHIOprin 2020-2020- No 50mg 50 mg, Uni vers e (IMURAN) 05-31-20 Oral, ity of tablet 50 14:00: 14:19 DAILY, [place] mg 00 :13 First dose Medical on [facility] 05/31/20 at 0900, Until Discontinu ed, Routine gabapentin 0 Yes 400mg 400 mg, Uni vers (NEURONTIN) 05-31 Oral, TID, it y of 400 mg 13:00: First dose [place] 00 on [facility] 05/31/20 at Branch 0800, Until Discontinu ed, Routine dicyclomine 0 Yes 20mg 20 mg, Univ ers (BENTYL) 05-31 Oral, TID, ity o f tablet 20 13:00: First dose [place] mg 00 on [facility] 05/31/20 at Branch 0800, Until Discontinu ed, Routine busPIRone 0 Yes 15mg 15 mg, Univer s (BUSPAR) 05-31 Oral, TID, ity o f tablet 15 13:00: First dose [place] mg 00 on [facility] 05/31/20 at Branch 0800, Until Discontinu ed, Routine temazepam 2020-0 2020- No 15mg 15 mg, Unive rs (RESTORIL) 05-31 Oral, ity of capsule 15 06:30: 05:28 ONCE, 1 [place] mg 00 :00 dose, [facility] 05/31/20 at Branch 0130, Routine proMETHazin 2020-0 202- No 25mg 25 mg, Uni vers e 05-31- Oral, ity of (PHENERGAN) 05:29: 22:06 Q6HPRN, [place] tablet 25 16 :24 Starting Medica l mg [facility] 05/31/20 at 0029, Until 05/31/20 at 1706, Routine, Nausea and Vomiting (N/V) ampicillin Yes 2g 2,000 mg Uni vers (POLYCILLIN 05-31 (2 g), IV ity of -N) 2,000 03:00: Piggyback, [place] mg in NaCl 00 Q6H ABX, Medic al 0.9% (NS) First dose Bran ch 100 mL on [place] MINI-BAG 05/30/20 at 2200, Until Discontinu ed, [...] ONCE, 1 Medica l NaCl 0.9% dose, [place] Branc h (NS) 100 mL 05/30/20 at MINI-BAG 1745, 100 mL
Reas on for Anti-Infec tive: Documented Infection< br>Documen karly Infection Site: Urine
D uration of Therapy: Other (see Comments) FENTanyl PF 2020- No 75ug 75 mcg, Un matt (SUBLIMAZE 05-30 Slow IV ity o f (PF)) 22:45: 21:55 Push, [place] injection 00 :00 ONCE, 1 Medical 75 mcg dose, [facility] 05/30/20 at 1745, STAT proMETHazin 2020- No [...] 00 :49 CONTINUOUS Medic al , Starting [facility] 05/30/20 at 1730, Until Sun06/01/20 at 1401, Routine ondansetron Yes 4mg 4 mg, Slow Univers (ZOFRAN 18 IV Push, ity of (PF)) 22:23: Q6HPRN, [place] injection 4 13 Starting Medi bernadine mg [facility] 05/30/20 at 1723, Until Discontinu ed, Routine, Nausea and Vomiting (N/V) morpHINE 2020- No 4mg 4 mg, Slow Un matt injection 4 05-3019 IV Push, ity of mg 22:23: 22:22 Q4HPRN, [place] 07 :07 Starting Medical [facility] 05/30/20 at 1723, Until 05/31/20 at 1722, Routine, Pain (scale 7-10) HYDROcodone 2020- No 1{tbl} 1 tablet, Univers -acetaminop 05-30 Oral, ity of hen (NORCO 22:23: 15:19 Q6HPRN, [place] 5) 5-325 mg 02 :39 Starting Medi bernadine tablet 1 [facility] tablet 05/30/20 at 1723, Until Sun06/01/20 at 1019, Routine, Pain (scale 4-6) acetaminoph 2020- No 650mg 650 mg, U nivers en 05-30 Oral, ity of (TYLENOL) 22:22: 15:33 Q6HPRN, [place] tablet 650 55 :25 Starting Medic al mg [facility] 05/30/20 at 1722, Until 05/31/20 at 1033, Routine, Pain (scale 1-3), Temp > 38.5 C oxybutynin 2021-0 Yes 5mg 5 mg, Univer s chloride 05-30 Oral, ity of (DITROPAN) 22:21: TIDPRN, [place] tablet 5 mg 36 Starting Medi bernadine [facility] 05/30/20 at 1721, Until Discontinu ed, Routine, Bladder spasms iohexol 2020- No [id number] 100mL 100 mL, Univers (OMNIPAQUE 05-30 Intravenou it y of 350 21:00: 20:40 s, ONCE, 1 [place] BULK-100 00 :00 dose, [place] [facility] mL) 05/30/20 at [place] injection 1600, 100 mL Routine FENTanyl PF 2020- No 50ug 50 mcg, Un matt (SUBLIMAZE 05-30 Slow IV ity o f (PF)) 21:00: 20:35 Push, [place] injection 00 :00 ONCE, 1 Medical 50 mcg dose, [facility] 05/30/20 at 1600, Routine ondansetron 2020- No 4mg 4 mg, Slow Univers (ZOFRAN 05-30 IV Push, ity of (PF)) 21:00: 20:22 ONCE, 1 [place] injection 4 00 :00 dose, [place] [facility] ical mg 05/30/20 at Branch 1600, GIGI proMETHazin 2020- No 25mg 25 mg, IV Univers e 05-27 Piggyback, ity of (PHENERGAN) 02:45: 01:47 ONCE, 1 [place] 25 mg in 00 :00 dose, [facility] Medica l NaCl 0.9% 05/26/[address] [facility] ch (NS) 50 mL 2144, 50 piggyback mL butorphanol 2020- No 2mg 2 mg, IV U nivers (STADOL) 05-27 Push, ity of injection 2 02:45: 01:33 ONCE, 1 [place] mg 00 :00 dose, [facility] Medical 05/26/20 at Branch 2145, Routine ONDANSETRON 2020- No Take by U nivers HCL (ZOFRAN 05-27 mouth. ity o f ORAL) 01:43: 00:00 [place] 58 :00 [facility] dicyclomine 2020- No 10mg Take 10 mg Univers 10 mg 05-27-14 by mouth. ity of capsule 01:43: 00:00 [place] 58 :00 [facility] Branch butorphanol 2020- No 1mg 1 mg, IV U nivers (STADOL) 05-27-15 Push, ity of injection 1 01:30: 00:38 ONCE, 1 [place] mg 00 :00 dose, [facility] Medical 05/26/20 at Branch 2030, Routine NaCl 0.9% 2020- No 1000mL at 999 Uni vers (NS) bolus 05-26-15 mL/hr, ity of infusion 23:30: 01:49 1,000 mL, [place] as 1,000 mL 00 :00 IV Medical Infusion, [place] ONCE, 1 dose, [facility] 05/26/20 at 1830, GIGI oxybutynin 2020-0 Yes [id number] 5mg Take 1 U nivers chloride 5 4-14 tablet by ity of mg tablet 00:00: mouth 3 [place] [address] (three) Medical times Branch daily as needed for Bladder spasms. oxybutynin 2020-0 Yes [id number] 5mg Take 1 U nivers chloride 5 4-14 tablet by ity of mg tablet 00:00: mouth 3 [place] (three) Medical times Branch daily as needed for Bladder spasms. oxybutynin 2020-0 Yes [id number] 5mg Take 1 U nivers chloride 5 4-14 tablet by ity of mg tablet 00:00: mouth 3 [place] (three) Medical times Branch daily as needed for Bladder spasms. oxybutynin 2020-0 Yes [id number] 5mg Take 1 U nivers chloride 5 4-14 tablet by ity of mg tablet 00:00: mouth 3 [place] (three) Medical times Branch daily as needed for Bladder spasms. oxybutynin 2020-0 Yes [id number] 5mg Take 1 U nivers chloride 5 4-14 tablet by ity of mg tablet 00:00: mouth 3 [place] (three) Medical times Branch daily as needed for Bladder spasms. oxybutynin 2020-0 Yes [id number] 5mg Take 1 U nivers chloride 5 4-14 tablet by ity of mg tablet 00:00: mouth 3 [place] (three) Medical times Branch daily as needed for Bladder spasms. oxybutynin 1-0 Yes [id number] 5mg Take 1 U nivers chloride 5 4-14 tablet by ity of mg tablet 00:00: mouth (three) Medical times Branch daily as needed for Bladder spasms. oxybutynin 1-0 Yes [id number] 5mg Take 1 U nivers chloride 5 4-14 tablet by ity of mg tablet 00:00: mouth (three) Medical times Branch daily as needed for Bladder spasms. oxybutynin 1-0 Yes [id number] 5mg Take 1 U nivers chloride 5 4-14 tablet by ity of mg tablet 00:00: mouth (three) Medical times Branch daily as needed for Bladder spasms. oxybutynin 1-0 Yes [id number] 5mg Take 1 U nivers chloride 5 4-14 tablet by ity of mg tablet 00:00: mouth (three) Medical times Branch daily as needed for Bladder spasms. oxybutynin 2020-0 Yes [id number] 5mg Take 1 U nivers chloride 5 4-14 tablet by ity of mg tablet 00:00: mouth (three) Medical times Branch daily as needed for Bladder spasms. oxybutynin 2020-0 Yes [id number] 5mg Take 1 U nivers chloride 5 4-14 tablet by ity of mg tablet 00:00: mouth (three) Medical times Branch daily as needed for Bladder spasms. oxybutynin 1-0 Yes [id number] 5mg Take 1 U nivers chloride 5 4-14 tablet by ity of mg tablet 00:00: mouth (three) Medical times Branch daily as needed for Bladder spasms. oxybutynin 1-0 Yes [id number] 5mg Take 1 U nivers chloride 5 4-14 tablet by ity of mg tablet 00:00: mouth (three) Medical times Branch daily as needed for Bladder spasms. oxybutynin 1-0 Yes [id number] 5mg Take 1 U nivers chloride 5 4-14 tablet by ity of mg tablet 00:00: mouth (three) Medical times Branch daily as needed for Bladder spasms. oxybutynin 1-0 Yes [id number] 5mg Take 1 U nivers chloride 5 4-14 tablet by ity of mg tablet 00:00: mouth (three) Medical times Branch daily as needed for Bladder spasms. oxybutynin 1-0 Yes [id number] 5mg Take 1 U nivers chloride 5 4-14 tablet by ity of mg tablet 00:00: mouth (three) Medical times Branch daily as needed for Bladder spasms. oxybutynin 1-0 Yes [id number] 5mg Take 1 U nivers chloride 5 4-14 tablet by ity of mg tablet 00:00: mouth (three) Medical times Branch daily as needed for Bladder spasms. oxybutynin 1-0 Yes [id number] 5mg Take 1 U nivers chloride 5 4-14 tablet by ity of mg tablet 00:00: mouth () Medical times Branch daily as needed for Bladder spasms. oxybutynin 1-0 Yes [id number] 5mg Take 1 U nivers chloride 5 4-14 tablet by ity of mg tablet 00:00: mouth (three) Medical times Branch daily as needed for Bladder spasms. oxybutynin 1-0 Yes [id number] 5mg Take 1 U nivers chloride 5 4-14 tablet by ity of mg tablet 00:00: mouth () Medical times Branch daily as needed for Bladder spasms. oxybutynin 1-0 Yes [id number] 5mg Take 1 U nivers chloride 5 4-14 tablet by ity of mg tablet 00:00: mouth (three) Medical times Branch daily as needed for Bladder spasms. oxybutynin 1-0 Yes [id number] 5mg Take 1 U nivers chloride 5 4-14 tablet by ity of mg tablet 00:00: mouth (three) Medical times Branch daily as needed for Bladder spasms. oxybutynin 1-0 Yes [id number] 5mg Take 1 U nivers chloride 5 4-14 tablet by ity of mg tablet 00:00: mouth (three) Medical times Branch daily as needed for Bladder spasms. oxybutynin 2021-0 Yes [id number] 5mg Take 1 U nivers chloride 5 4-14 tablet by ity of mg tablet 00:00: mouth (three) Medical times Branch daily as needed for Bladder spasms. oxybutynin Yes [id number] 5mg Take 1 U nivers chloride 5 4-14 tablet by ity of mg tablet 00:00: mouth 3 [place] 00 (three) Medical times Branch daily as needed for Bladder spasms. phenazopyri Yes [id number] 200mg Take 1 Univers dine 200 mg 4-14 tablet by ity of tablet 00:00: mouth 3 [place] 00 (three) Medical times Branch daily. proMETHazin 2020- Yes [id number] 25mg Take 1 Univers e 25 mg 4-14 tablet by ity of tablet 00:00: mouth [place] 00 every 6 Medical (six) Branch hours as needed for Nausea and Vomiting (N/V). oxybutynin 2020- No [id number] 5mg Take 1 [facility] chloride 5 4-14 10-24 tablet by ity of mg tablet 00:00: 00:00 mouth 3 [place] (three) Medical times Branch daily as needed for Bladder spasms. proMETHazin 2020- No [id number] 25mg Take 1 Univers e 25 mg 4-14 04-21 tablet by ity of tablet 00:00: 00:00 mouth [place] 00 :00 every 6 Medical (six) Branch hours as needed for Nausea and Vomiting (N/V). phenazopyri 2020- No [id number] 200mg Take 1 Univers dine 200 mg 4-14 04-20 tablet by it y of tablet 00:00: 00:00 mouth 3 [place] 00 :00 (three) Medical times Branch daily. FENTanyl PF 2020- No 50ug 50 mcg, Un matt (SUBLIMAZE 05-13 Slow IV ity o f (PF)) 21:30: 20:45 Push, [place] injection 00 :00 ONCE, 1 Medical 50 mcg dose, [place] Branch 05/13/20 at 1630, Routine cefTRIAXone 2020- No 1000mg 1,000 mg, Univers (ROCEPHIN) 05-13 IV ity of 1,000 mg in 21:30: 21:22 Piggyback, [place] NaCl 0.9% 00 :00 ONCE, 1 Medical (NS) 50 mL dose, [facility] Bran ch MINI-BAG 05/13/20 at 1630, [...] at Branch 1245, GIGI iohexol 2020- No [id number] 120mL 120 mL, Univers (OMNIPAQUE 05-13 Intravenou [...] [place] 05/13/20 at 1145, GIGI proMETHazin Yes [id number] 25mg Take 1 Univers e 25 mg 4- tablet by ity of tablet 00:00: mouth [place] 00 every 6 Medical (six) Branch hours as needed for Nausea and Vomiting (N/V). proMETHazin 2020- Yes [id number] 25mg Take 1 Univers e 25 mg 4-01 tablet by ity of tablet 00:00: mouth [place] 00 every 6 Medical (six) Branch hours as needed for Nausea and Vomiting (N/V). proMETHazin 2020- No [id number] 25mg Take 1 Univers e 25 mg 05-13 04-14 tablet by ity of tablet 00:00: 00:00 mouth [place] 00 :00 every 6 Medical (six) Branch hours as needed for Nausea and Vomiting (N/V). cefpodoxime 2020- No [id number] 100mg Take 1 Univers 100 mg 05-13 [...] of (TOPROL XL 15:51: [place] ORAL) 34 [facility] Branch metoprolol Yes Take by Uni vers succinate 2-09 mouth. ity of (TOPROL XL 15:51: [place] ORAL) 34 [facility] Branch metoprolol Yes Take by Uni vers succinate 2-09 mouth. ity of (TOPROL XL 15:51: [place] ORAL) 34 [facility] Branch metoprolol Yes Take by [...] [place] ORAL) Medical Branch gabapentin 2020-0 Yes [id number] 400mg Take 1 [facility] 400 mg 2-09 capsule by ity of capsule 00:00: mouth 3 (three) Medical times Branch daily. gabapentin 2020-0 Yes [id number] 400mg Take 1 [facility] 400 mg 2-09 capsule by ity of capsule 00:00: mouth 3 (three) Medical times Branch daily. gabapentin 2020-0 Yes [id number] 400mg Take 1 [facility] 400 mg 2-09 capsule by ity of capsule 00:00: mouth 3 (three) Medical times Branch daily. gabapentin 2020-0 Yes [id number] 400mg Take 1 [facility] 400 mg 2-09 capsule by ity of capsule 00:00: mouth 3 (three) Medical times Branch daily. gabapentin 2020-0 Yes [id number] 400mg Take 1 [facility] 400 mg 2-09 capsule by ity of capsule 00:00: mouth 3 (three) Medical times Branch daily. gabapentin 2021-0 Yes [id number] 400mg Take 1 [facility] 400 mg 2-09 capsule by ity of capsule 00:00: mouth 3 (three) Medical times Branch daily. gabapentin 2021-0 Yes [id number] 400mg Take 1 [facility] 400 mg 2-09 capsule by ity of capsule 00:00: mouth 3 (three) Medical times Branch daily. gabapentin 2021-0 Yes [id number] 400mg Take 1 [facility] 400 mg 2-09 capsule by ity of capsule 00:00: mouth 3 [place] 00 (three) Medical times Branch daily. gabapentin 2020-0 Yes [id number] 400mg Take 1 [facility] 400 mg 2-09 capsule by ity of capsule 00:00: mouth 3 [place] 00 (three) Medical times Branch daily. gabapentin 2020-0 Yes [id number] 400mg Take 1 [facility] 400 mg 2-09 capsule by ity of capsule 00:00: mouth 3 [place] 00 (three) Medical times Branch daily. gabapentin 2020-0 202- No [id number] 400mg Take 1 [facility] 400 mg 2-10 17-17 capsule by ity of capsule 00:00: 00:00 mouth 3 [place] 00 :00 (three) Medical times Branch daily. gabapentin 2020-0 Yes 300mg Take 1 Univ ers 300 mg 2-04 capsule by ity of capsule 00:00: mouth 3 [place] 00 (three) Medical times Branch daily. gabapentin 2020-2020- No 300mg Take 1 Uni vers 300 mg 2-05 14- capsule by ity of capsule 00:00: 00:00 mouth 3 [place] 00 :00 (three) Medical times Branch daily. gabapentin 2020-2020- No 300mg Take 1 Uni vers 300 mg 2-04 -09 capsule by ity of capsule 00:00: 00:00 mouth 3 [place] 00 :00 (three) Medical times Branch daily. FENTanyl PF 2019-02- No 50ug 50 mcg, Un matt (SUBLIMAZE 12-08 Slow IV ity o f (PF)) 20:00: 07:59 Push, [place] injection 00 :00 ONCE, 1 Medical 50 mcg dose, [facility] Branch 12/08/19 at 1500, STAT proMETHazin 2019-02- No 12.5mg 12.5 mg, Univers e 12-07 IV ity of (PHENERGAN) 18:45: 17:52 Piggyback, [place] 12.5 mg in 00 :00 ONCE, 1 Medica l NaCl 0.9% dose, [facility] h (NS) 50 mL 12/08/19 piggyback [...] TIMES A Branch DAY proMETHazin 2019-02 Yes [id number] 25mg Take 1 Univers e 25 mg 0-26 tablet by ity of tablet 00:00: mouth [place] 00 every 6 Medical (six) Branch hours as needed for Nausea and Vomiting (N/V). GABAPENTIN 2019-02 Yes TAKE 1 Unive rs 300 mg 0-26 CAPSULE BY ity of capsule 00:00: MOUTH [place] 00 THREE Medical TIMES A Branch DAY proMETHazin 2019-02 Yes [id number] 25mg Take 1 Univers e 25 mg 0-26 tablet by ity of tablet 00:00: mouth [place] 00 every 6 Medical (six) Branch hours as needed for Nausea and Vomiting (N/V). GABAPENTIN 2019-02 Yes TAKE 1 Unive rs 300 mg 0-26 CAPSULE BY ity of capsule 00:00: MOUTH [place] 00 THREE Medical TIMES A Branch DAY proMETHazin 2019- Yes [id number] 25mg Take 1 Univers e 25 mg 0-26 tablet by ity of tablet 00:00: mouth [place] 00 every 6 Medical (six) Branch hours as needed for Nausea and Vomiting (N/V). proMETHazin 2019- Yes [id number] 25mg Take 1 Univers e 25 mg 0-26 tablet by ity of tablet 00:00: mouth [place] 00 every 6 Medical (six) Branch hours as needed for Nausea and Vomiting (N/V). proMETHazin 2019- Yes [id number] 25mg Take 1 Univers e 25 mg 0-26 tablet by ity of tablet 00:00: mouth [place] 00 every 6 Medical (six) Branch hours as needed for Nausea and Vomiting (N/V). proMETHazin 2019-02 Yes [id number] 25mg Take 1 Univers e 25 mg 0-26 tablet by ity of tablet 00:00: mouth [place] 00 every 6 Medical (six) Branch hours as needed for Nausea and Vomiting (N/V). proMETHazin 2019-02 Yes [id number] 25mg Take 1 Univers e 25 mg 0-26 tablet by ity of tablet 00:00: mouth [place] 00 every 6 Medical (six) Branch hours as needed for Nausea and Vomiting (N/V). proMETHazin 2019-02 Yes [id number] 25mg Take 1 Univers e 25 mg 0-26 tablet by ity of tablet 00:00: mouth [place] 00 every 6 Medical (six) Branch hours as needed for Nausea and Vomiting (N/V). proMETHazin 2019-02 Yes [id number] 25mg Take 1 Univers e 25 mg 0-26 tablet by ity of tablet 00:00: mouth [place] 00 every 6 Medical (six) Branch hours as needed for Nausea and Vomiting (N/V). proMETHazin 2019-02 Yes [id number] 25mg Take 1 Univers e 25 mg 0-26 tablet by ity of tablet 00:00: mouth [place] 00 every 6 Medical (six) Branch hours as needed for Nausea and Vomiting (N/V). proMETHazin 2019-02 No [id number] 25mg Take 1 Univers e 25 mg [...] s mg tablet 0-23 ity of 00:00: [place] [facility] busPIRone 5 2019-02 Yes Univer s mg tablet 0-23 ity of 00:00: [place] [facility] busPIRone 5 2019- Yes Univer s mg tablet 0-23 ity of 00:00: [place] [facility] busPIRone 5 2019- Yes Univer s mg tablet 0-23 ity of 00:00: [place] [facility] busPIRone 5 2019- Yes Univer s mg tablet 0-23 ity of 00:00: [place] [facility] busPIRone 5 2019- Yes Univer s mg tablet 0-23 ity of 00:00: [place] [facility] busPIRone 5 2019- Yes Univer s mg tablet 0-23 ity of 00:00: Medical Branch busPIRone 5 2019- Yes Univer s mg tablet 0-23 ity of 00:00: [place] [facility] busPIRone 5 2019- Yes Univer s mg tablet 0-23 ity of 00:00: Medical Branch busPIRone 5 2019- Yes Univer s mg tablet 0-23 ity of 00:00: Medical Branch busPIRone 5 2019- Yes Univer s mg tablet 0-23 ity of 00:00: Medical Branch busPIRone 5 2019- Yes Univer s mg tablet 0-23 ity of 00:00: [place] [facility] busPIRone 5 2019- Yes Univer s mg tablet 0 ity of 00:00: [place] [facility] busPIRone 5 2019-2020- No Unive rs mg tablet 0-18 ity of 00:00: 00:00 [place] :00 Medical Branch losartan 50 2020-0 Yes 50mg Take 50 mg Univers mg tablet 9-21 by mouth ity of 00:00: daily. [place] [facility] losartan 50 2020-0 Yes 50mg Take 50 mg Univers mg tablet 9-21 by mouth ity of 00:00: daily. [place] [facility] losartan 50 2020-0 Yes 50mg Take 50 mg Univers mg tablet 9-21 by mouth ity of 00:00: daily. [place] [facility] losartan 50 2020-0 Yes 50mg Take 50 mg Univers mg tablet 9-21 by mouth ity of 00:00: daily. [place] [facility] losartan 50 2020-0 Yes 50mg Take 50 mg Univers mg tablet 9-21 by mouth ity of 00:00: daily. [place] [facility] losartan 50 2020-0 Yes 50mg Take 50 mg Univers mg tablet 9-21 by mouth ity of 00:00: daily. [place] [facility] losartan 50 2020-0 Yes 50mg Take 50 mg Univers mg tablet 9-21 by mouth ity of 00:00: daily. [place] [facility] losartan 50 2020-0 Yes 50mg Take 50 mg Univers mg tablet 9-21 by mouth ity of 00:00: daily. [place] [facility] losartan 50 2020-0 Yes 50mg Take 50 mg Univers mg tablet 9-21 by mouth ity of 00:00: daily. [place] [facility] losartan 50 2020-0 Yes 50mg Take 50 mg Univers mg tablet 9-21 by mouth ity of 00:00: daily. [place] [facility] losartan 50 2020-0 Yes 50mg Take 50 mg Univers mg tablet 9-21 by mouth ity of 00:00: daily. [place] [facility] losartan 50 2020-0 Yes 50mg Take 50 mg Univers mg tablet 9-21 by mouth ity of 00:00: daily. [place] [facility] losartan 50 2020-0 Yes 50mg Take 50 mg Univers mg tablet 9-21 by mouth ity of 00:00: daily. [place] [facility] losartan 50 2020-0 Yes 50mg Take 50 mg Univers mg tablet 9-21 by mouth ity of 00:00: daily. [place] [facility] losartan 50 2020-0 Yes 50mg Take 50 mg Univers mg tablet 9-21 by mouth ity of 00:00: daily. [place] [facility] losartan 50 2020-0 Yes 50mg Take 50 mg Univers mg tablet 9-21 by mouth ity of 00:00: daily. [place] [facility] losartan 50 2020-0 Yes 50mg Take 50 mg Univers mg tablet 9-21 by mouth ity of 00:00: daily. [place] [facility] losartan 50 2020-0 Yes 50mg Take 50 mg Univers mg tablet 9-21 by mouth ity of 00:00: daily. [place] [facility] losartan 50 2020-0 Yes 50mg Take 50 mg Univers mg tablet 9-21 by mouth ity of 00:00: daily. [place] [facility] losartan 50 2020-0 Yes 50mg Take 50 mg Univers mg tablet 9-21 by mouth ity of 00:00: daily. [place] [facility] losartan 50 2020-0 Yes 50mg Take 50 mg Univers mg tablet 9-21 by mouth ity of 00:00: daily. [place] [facility] losartan 50 2020-0 Yes 50mg Take 50 mg [facility] mg tablet 9-21 by mouth ity of 00:00: daily. [place] [facility] losartan 50 2020-0 Yes 50mg Take 50 mg [facility] mg tablet 9-21 by mouth ity of 00:00: daily. [place] [facility] losartan 50 2020-0 Yes 50mg Take 50 mg Univers mg tablet 9-21 by mouth ity of 00:00: daily. [place] [facility] losartan 50 2020-0 Yes 50mg Take 50 mg Univers mg tablet 9-21 by mouth ity of 00:00: daily. [place] [facility] losartan 50 2020-0 Yes 50mg Take 50 mg Univers mg tablet 9-21 by mouth ity of 00:00: daily. [place] [facility] losartan 50 2020-0 Yes 50mg Take 50 mg Univers mg tablet 9-21 by mouth ity of 00:00: daily. [place] [facility] losartan 50 2020-0 Yes 50mg Take 50 mg Univers mg tablet 9-21 by mouth ity of 00:00: daily. [place] [facility] Branch losartan 50 2020-0 Yes 50mg Take 50 mg Univers mg tablet 9-21 by mouth ity of 00:00: daily. [place] [facility] losartan 50 2020-0 Yes 50mg Take 50 mg Univers mg tablet 9-21 by mouth ity of 00:00: daily. [place] [facility] losartan 50 2020-0 Yes 50mg Take 50 mg [facility] mg tablet 9-21 by mouth ity of 00:00: daily. [place] [facility] losartan 50 2020-0 Yes 50mg Take 50 mg Univers mg tablet 9-21 by mouth ity of 00:00: daily. [place] [facility] Branch losartan 50 2020-0 Yes 50mg Take 50 mg Univers mg tablet 9-21 by mouth ity of 00:00: daily. [place] [facility] Branch losartan 50 2020-0 Yes 50mg Take 50 mg Univers mg tablet 9-21 by mouth ity of 00:00: daily. [place] [facility] Branch losartan 50 2020-0 Yes 50mg Take 50 mg Univers mg tablet 9-21 by mouth ity of 00:00: daily. [place] [facility] Branch losartan 50 2020-0 Yes 50mg Take 50 mg Univers mg tablet 9-21 by mouth ity of 00:00: daily. [place] [facility] losartan 50 2020-0 Yes 50mg Take 50 mg Univers mg tablet 9-21 by mouth ity of 00:00: daily. [place] [facility] Branch losartan 50 2020-0 Yes 50mg Take 50 mg Univers mg tablet 9-21 by mouth ity of 00:00: daily. [place] [facility] Branch losartan 50 2020-0 2021- [...] 00 once every Medical mg/mL AtIn month. [place] erenumab-ao 2020-0 2020- No 140mg inject 140 Univers oe (AIMOVIG 3-13 09-09 mg under ity of AUTOINJECTO 00:00: 00:00 [place] R) 140 00 :00 once every Medical mg/mL AtIn month. [place] gabapentin 2020-0 2020- No 300mg Take 1 Uni vers 300 mg 3-13 04-09 capsule by ity of capsule 00:00: 00:00 mouth 3 [place] 00 :00 (three) Medical times Branch daily. divalproex 2020-0 Yes [id number] 250mg Take 1 Univers 250 mg EC 3-05 tablet by ity o f tablet 00:00: mouth [place] 00 every 12 Medical (twelve) Branch hours. divalproex 2020-0 Yes [id number] 250mg Take 1 Univers 250 mg EC 3-05 tablet by ity o f tablet 00:00: mouth [place] 00 every 12 Medical (twelve) Branch hours. divalproex 2020-0 Yes [id number] 250mg Take 1 Univers 250 mg EC 3-05 tablet by ity o f tablet 00:00: mouth [place] 00 every 12 Medical (twelve) Branch hours. divalproex 2020-0 Yes [id number] 250mg Take 1 Univers 250 mg EC 3-05 tablet by ity o f tablet 00:00: mouth [place] 00 every 12 Medical (twelve) Branch hours. divalproex 2020-0 Yes [id number] 250mg Take 1 Univers 250 mg EC 3-05 tablet by ity o f tablet 00:00: mouth [place] 00 every 12 Medical (twelve) Branch hours. divalproex 2020-0 Yes [id number] 250mg Take 1 Univers 250 mg EC 2-28 tablet by ity o f tablet 00:00: mouth [place] 00 every 12 Medical (twelve) Branch hours. divalproex 2020-0 2020- No [id number] 250mg Take 1 Univers 250 mg EC 2-28 03-05 tablet by ity of tablet 00:00: 00:00 mouth [place] 00 :00 every 12 Medical (twelve) Branch hours. divalproex 2020-0 2020- No [id number] 250mg Take 1 Univers 250 mg EC 2-28 03-05 tablet by ity of tablet 00:00: 00:00 mouth [place] 00 :00 every 12 Medical (twelve) Branch hours. divalproex 2020-0 2020- No [id number] 250mg Take 1 Univers 250 mg EC 2-28 03-05 tablet by ity of tablet 00:00: 00:00 mouth [place] 00 :00 every 12 Medical (twelve) Branch hours. divalproex 2020-0 2020- No [id number] 250mg Take 1 Univers 250 mg EC [...] times Medical daily. Branch divalproex 2020-0 Yes [id number] 125mg Take 1 Univers 125 mg EC 2-14 tablet by ity o f tablet 00:00: mouth [place] 00 every 12 Medical (twelve) Branch hours. divalproex 2020-0 Yes [id number] 125mg Take 1 Univers 125 mg EC 2-14 tablet by ity o f tablet 00:00: mouth [place] 00 every 12 Medical (twelve) Branch hours. divalproex 2020-0 Yes [id number] 125mg Take 1 Univers 125 mg EC 2-14 tablet by ity o f tablet 00:00: mouth [place] 00 every 12 Medical (twelve) Branch hours. divalproex 2020-0 Yes [id number] 125mg Take 1 [facility] 125 mg EC 2-14 tablet by ity o f tablet 00:00: mouth [place] 00 every 12 Medical (twelve) Branch hours. divalproex 2020-0 2020- No [id number] 125mg Take 1 Univers 125 mg EC [...] 2-09 by mouth. ity of capsule 15:24: [address] dicyclomine 2018-02 Yes 10mg Take 10 mg Univers 10 mg 2-09 by mouth. ity of capsule 15:24: [address] dicyclomine 2018-02 Yes 10mg Take 10 mg Univers 10 mg 2-09 by mouth. ity of capsule 15:24: [address] dicyclomine 2018-02 Yes 10mg Take 10 mg Univers 10 mg 2-09 by mouth. ity of capsule 15:24: [address] dicyclomine 2018-02 Yes 10mg Take 10 mg Univers 10 mg 2-09 by mouth. ity of capsule 15:24: [address] dicyclomine 2018-02 Yes 10mg Take 10 mg Univers 10 mg 2-09 by mouth. ity of capsule 15:24: [address] dicyclomine 2018-02 Yes 10mg Take 10 mg Univers 10 mg 2-09 by mouth. ity of capsule 15:24: [address] dicyclomine 2018-02 Yes 10mg Take 10 mg Univers 10 mg 2-09 by mouth. ity of capsule 15:24: [address] dicyclomine 2018-02 Yes 10mg Take 10 mg Univers 10 mg 2-09 by mouth. ity of capsule 15:24: [address] dicyclomine 2018-02 Yes 10mg Take 10 mg Univers 10 mg 2-09 by mouth. ity of capsule 15:24: [address] dicyclomine 2018-02 Yes 10mg Take 10 mg Univers 10 mg 2-09 by mouth. ity of capsule 15:24: [address] dicyclomine 2018-02 Yes 10mg Take 10 mg Univers 10 mg 2-09 by mouth. ity of capsule 15:24: [address] dicyclomine 2018-02 Yes 10mg Take 10 mg Univers 10 mg 2-09 by mouth. ity of capsule 15:24: [address] dicyclomine 2018-02 Yes 10mg Take 10 mg Univers 10 mg 2-09 by mouth. ity of capsule 15:24: [address] dicyclomine 2018-02 Yes 10mg Take 10 mg Univers 10 mg 2-09 by mouth. ity of capsule 15:24: [address] dicyclomine 2018-02 Yes 10mg Take 10 mg [facility] 10 mg 2-09 by mouth. ity of capsule 15:24: [address] dicyclomine 2018-02 Yes 10mg Take 10 mg [facility] 10 mg 2-09 by mouth. ity of capsule 15:24: [address] dicyclomine 2018-02 Yes 10mg Take 10 mg Univers 10 mg 2-09 by mouth. ity of capsule 15:24: [address] dicyclomine 2018-02 Yes 10mg Take 10 mg [facility] 10 mg 2-09 by mouth. ity of capsule 15:24: [address] dicyclomine 2018-02 Yes 10mg Take 10 mg [facility] 10 mg 2-09 by mouth. ity of capsule 15:24: [address] dicyclomine 2018-02 Yes 10mg Take 10 mg Univers 10 mg 2-09 by mouth. ity of capsule 15:24: [address] dicyclomine 2018-02 Yes 10mg Take 10 mg [facility] 10 mg 2-09 by mouth. ity of capsule 15:24: [address] dicyclomine 2018-02 Yes 10mg Take 10 mg [facility] 10 mg 2-09 by mouth. ity of capsule 15:24: [address] dicyclomine 2018-02 Yes 10mg Take 10 mg [facility] 10 mg 2-09 by mouth. ity of capsule 15:24: [address] dicyclomine 2018-02 Yes 10mg Take 10 mg [facility] 10 mg 2-09 by mouth. ity of capsule 15:24: [address] dicyclomine 2018-02 Yes 10mg Take 10 mg [facility] 10 mg 2-09 by mouth. ity of capsule 15:24: [address] dicyclomine 2018-02 Yes 10mg Take 10 mg [facility] 10 mg 2-09 by mouth. ity of capsule 15:24: [address] dicyclomine 2018-02 Yes 10mg Take 10 mg [facility] 10 mg 2-09 by mouth. ity of capsule 15:24: [address] dicyclomine 2018-02 Yes 10mg Take 10 mg [facility] 10 mg 2-09 by mouth. ity of capsule 15:24: [address] dicyclomine 2018-02 Yes 10mg Take 10 mg [facility] 10 mg 2-09 by mouth. ity of capsule 15:24: [address] dicyclomine 2018-02 Yes 10mg Take 10 mg [facility] 10 mg 2-09 by mouth. ity of capsule 15:24: [address] dicyclomine 2018-02 Yes 10mg Take 10 mg [facility] 10 mg 2-09 by mouth. ity of capsule 15:24: [address] ONDANSETRON 2018-02 Yes Take by Un matt HCL (ZOFRAN 2-09 mouth. ity of ORAL) 15:22: [address] ONDANSETRON 2018-02 Yes Take by Un matt HCL (ZOFRAN 2-09 mouth. ity of ORAL) 15:22: [address] ONDANSETRON 2018- Yes Take by Un matt HCL (ZOFRAN 2-09 mouth. ity of ORAL) 15:22: [address] ONDANSETRON 2018- Yes Take by Un matt HCL (ZOFRAN 2-09 mouth. ity of ORAL) 15:22: [address] ONDANSETRON 2018- Yes Take by Un matt HCL (ZOFRAN 2-09 mouth. ity of ORAL) 15:22: [address] ONDANSETRON 2018- Yes Take by Un matt HCL (ZOFRAN 2-09 mouth. ity of ORAL) 15:22: [address] ONDANSETRON 2018- Yes Take by Un matt HCL (ZOFRAN 2-09 mouth. ity of ORAL) 15:22: [place] [facility] ONDANSETRON 2018- Yes Take by Un matt HCL (ZOFRAN 2-09 mouth. ity of ORAL) 15:22: [place] [address] [facility] ONDANSETRON 2018- Yes Take by Un matt HCL (ZOFRAN 2-09 mouth. ity of ORAL) 15:22: [place] [address] [facility] Branch ONDANSETRON 2018- Yes Take by Un matt HCL (ZOFRAN 2-09 mouth. ity of ORAL) 15:22: [place] [address] [facility] Branch ONDANSETRON 2018- Yes Take by Un matt HCL (ZOFRAN 2-09 mouth. ity of ORAL) 15:22: [place] [address] [facility] Branch ONDANSETRON 2018- Yes Take by Un matt HCL (ZOFRAN 2-09 mouth. ity of ORAL) 15:22: [address] Branch ONDANSETRON 2018- Yes Take by Un matt HCL (ZOFRAN 2-09 mouth. ity of ORAL) 15:22: [address] Branch ONDANSETRON 2018- Yes Take by Un matt HCL (ZOFRAN 2-09 mouth. ity of ORAL) 15:22: [address] Branch ONDANSETRON 2018- Yes Take by Un matt HCL (ZOFRAN 2-09 mouth. ity of ORAL) 15:22: [address] Branch ONDANSETRON 2018- Yes Take by Un matt HCL (ZOFRAN 2-09 mouth. ity of ORAL) 15:22: [address] Branch ONDANSETRON 2018- Yes Take by Un matt HCL (ZOFRAN 2-09 mouth. ity of ORAL) 15:22: [address] Branch ONDANSETRON 2018- Yes Take by Un matt HCL (ZOFRAN 2-09 mouth. ity of ORAL) 15:22: [place] [address] Medical Branch ONDANSETRON 2018- Yes Take by Un matt HCL (ZOFRAN 2-09 mouth. ity of ORAL) 15:22: [place] [address] [facility] Branch ONDANSETRON 2018- Yes Take by Un matt HCL (ZOFRAN 2-09 mouth. ity of ORAL) 15:22: [place] [address] [facility] Branch ONDANSETRON 2018- Yes Take by Un matt HCL (ZOFRAN 2-09 mouth. ity of ORAL) 15:22: [address] ONDANSETRON 2018- Yes Take by Un matt HCL (ZOFRAN 2-09 mouth. ity of ORAL) 15:22: [address] ONDANSETRON 2018-02 Yes Take by Un matt HCL (ZOFRAN 2-09 mouth. ity of ORAL) 15:22: [address] ONDANSETRON 2018-02 Yes Take by Un matt HCL (ZOFRAN 2-09 mouth. ity of ORAL) 15:22: [address] ONDANSETRON 2018-02 Yes Take by Un matt HCL (ZOFRAN 2-09 mouth. ity of ORAL) 15:22: [address] ONDANSETRON 2018-02 Yes Take by Un matt HCL (ZOFRAN 2-09 mouth. ity of ORAL) 15:22: [address] ONDANSETRON 2018-02 Yes Take by Un matt HCL (ZOFRAN 2-09 mouth. ity of ORAL) 15:22: [address] ONDANSETRON 2018-02 Yes Take by Un matt HCL (ZOFRAN 2-09 mouth. ity of ORAL) 15:22: [address] ONDANSETRON 2018-02 Yes Take by Un matt HCL (ZOFRAN 2-09 mouth. ity of ORAL) 15:22: [address] ONDANSETRON 2018-02 Yes Take by Un matt HCL (ZOFRAN 2-09 mouth. ity of ORAL) 15:22: [address] ONDANSETRON 2018-02 Yes Take by Un matt HCL (ZOFRAN 2-09 mouth. ity of ORAL) 15:22: [address] ONDANSETRON 2018-02 Yes Take by Un matt HCL (ZOFRAN 2-09 mouth. ity of ORAL) 15:22: [address] azaTHIOprin 2018-02 Yes 150mg Take 150 [...] 50 mg 2-02 ity of tablet 00:00: [place] [facility] azaTHIOprin 2019-1 Yes Univer s e 50 mg 2-02 ity of tablet 00:00: [place] [facility] azaTHIOprin 2019-1 Yes Univer s e 50 mg 2-02 ity of tablet 00:00: [place] [address] [facility] azaTHIOprin 2019-1 Yes Univer s e 50 mg 2-02 ity of tablet 00:00: [place] [facility] azaTHIOprin 2019-1 Yes Univer s e 50 mg 2-02 ity of tablet 00:00: [place] [address] [facility] azaTHIOprin 2019-1 Yes Univer s e 50 mg 2-02 ity of tablet 00:00: [place] [address] [facility] Branch azaTHIOprin 2019-1 Yes Univer s e 50 mg 2-02 ity of tablet 00:00: [place] [address] [facility] Branch azaTHIOprin 2019-1 Yes Univer s e 50 mg 2-02 ity of tablet 00:00: [place] [address] [facility] azaTHIOprin 2019-1 Yes Univer s e 50 mg 2-02 ity of tablet 00:00: [place] [address] [facility] azaTHIOprin 2019-1 Yes Univer s e 50 mg 2-02 ity of tablet 00:00: [place] [address] [facility] azaTHIOprin 2019-1 Yes Univer s e 50 mg 2-02 ity of tablet 00:00: [place] [address] [facility] azaTHIOprin 2019-1 Yes Univer s e 50 mg 2-02 ity of tablet 00:00: [place] [address] [facility] azaTHIOprin 2019-1 Yes Univer s e 50 mg 2-02 ity of tablet 00:00: [place] [address] [facility] azaTHIOprin 2019-1 Yes Univer s e 50 mg 2-02 ity of tablet 00:00: [place] [address] [facility] azaTHIOprin 2019-1 Yes Univer s e 50 mg 2-02 ity of tablet 00:00: [place] [address] [facility] azaTHIOprin 2019-1 Yes Univer s e 50 mg 2-02 ity of tablet 00:00: [place] [address] [facility] azaTHIOprin 2019-1 Yes Univer s e 50 mg 2-02 ity of tablet 00:00: [place] [address] [facility] azaTHIOprin 2019-1 Yes Univer s e 50 mg 2-02 ity of tablet 00:00: [place] [address] [facility] Branch azaTHIOprin 2019-1 Yes Univer s e 50 mg 2-02 ity of tablet 00:00: [place] [address] [facility] azaTHIOprin 2018-02 Yes Univer s [...] 50 mg 2-02 ity of tablet 00:00: [place] [facility] azaTHIOprin 2018-02 Yes Univer s e 50 mg 2-02 ity of tablet 00:00: [place] [facility] azaTHIOprin 2018-02 Yes Univer s e 50 mg 2-02 ity of tablet 00:00: [place] [facility] azaTHIOprin 2018-02 Yes Univer s e 50 mg 2-02 ity of tablet 00:00: [place] [facility] azaTHIOprin 2018-1- No 150mg Take 150 [facility] e 50 mg 2-02 10-24 mg by ity of tablet 00:00: 00:00 mouth [place] 00 :00 daily. Medical Branch ibuprofen 2018-02 Yes [id number] 600mg Take 1 [facility] 600 mg 1-13 tablet by ity of tablet 00:00: mouth [place] 00 every 6 Medical (six) Branch hours as needed for Pain (scale 4-6). ibuprofen 2018-02 Yes [id number] 600mg Take 1 [facility] 600 mg 1-13 tablet by ity of tablet 00:00: mouth [place] 00 every 6 Medical (six) Branch hours as needed for Pain (scale 4-6). ibuprofen 2018-02 Yes [id number] 600mg Take 1 [facility] 600 mg 1-13 tablet by ity of tablet 00:00: mouth [place] 00 every 6 Medical (six) Branch hours as needed for Pain (scale 4-6). ibuprofen 2018-02 Yes [id number] 600mg Take 1 [facility] 600 mg 1-13 tablet by ity of tablet 00:00: mouth [place] 00 every 6 Medical (six) Branch hours as needed for Pain (scale 4-6). ibuprofen 2018-02 Yes [id number] 600mg Take 1 [facility] 600 mg 1-13 tablet by ity of tablet 00:00: mouth [place] 00 every 6 Medical (six) Branch hours as needed for Pain (scale 4-6). ibuprofen 2018-02 Yes [id number] 600mg Take 1 [facility] 600 mg 1-13 tablet by ity of tablet 00:00: mouth [place] 00 every 6 Medical (six) Branch hours as needed for Pain (scale 4-6). ibuprofen 2018- Yes [id number] 600mg Take 1 [facility] 600 mg 1-13 tablet by ity of tablet 00:00: mouth [place] 00 every 6 Medical (six) Branch hours as needed for Pain (scale 4-6). ibuprofen 2018-02 Yes [id number] 600mg Take 1 [facility] 600 mg 1-13 tablet by ity of tablet 00:00: mouth [place] 00 every 6 Medical (six) Branch hours as needed for Pain (scale 4-6). ibuprofen 2018-02 Yes [id number] 600mg Take 1 [facility] 600 mg 1-13 tablet by ity of tablet 00:00: mouth [place] 00 every 6 Medical (six) Branch hours as needed for Pain (scale 4-6). ibuprofen 2018-02 Yes [id number] 600mg Take 1 [facility] 600 mg 1-13 tablet by ity of tablet 00:00: mouth [place] 00 every 6 Medical (six) Branch hours as needed for Pain (scale 4-6). ibuprofen 2018-02 Yes [id number] 600mg Take 1 [facility] 600 mg 1-13 tablet by ity of tablet 00:00: mouth [place] 00 every 6 Medical (six) Branch hours as needed for Pain (scale 4-6). ibuprofen 2018-02 Yes [id number] 600mg Take 1 [facility] 600 mg 1-13 tablet by ity of tablet 00:00: mouth [place] 00 every 6 Medical (six) Branch hours as needed for Pain (scale 4-6). ibuprofen 2018-02 Yes [id number] 600mg Take 1 [facility] 600 mg 1-13 tablet by ity of tablet 00:00: mouth [place] 00 every 6 Medical (six) Branch hours as needed for Pain (scale 4-6). ibuprofen 2019- Yes [id number] 600mg Take 1 [facility] 600 mg 1-13 tablet by ity of tablet 00:00: mouth [place] 00 every 6 Medical (six) Branch hours as needed for Pain (scale 4-6). ibuprofen 2018- Yes [id number] 600mg Take 1 [facility] 600 mg 1-13 tablet by ity of tablet 00:00: mouth [place] 00 every 6 Medical (six) Branch hours as needed for Pain (scale 4-6). ibuprofen 2018-02 Yes [id number] 600mg Take 1 [facility] 600 mg 1-13 tablet by ity of tablet 00:00: mouth [place] 00 every 6 Medical (six) Branch hours as needed for Pain (scale 4-6). ibuprofen 2018-02 Yes [id number] 600mg Take 1 [facility] 600 mg 1-13 tablet by ity of tablet 00:00: mouth [place] 00 every 6 Medical (six) Branch hours as needed for Pain (scale 4-6). ibuprofen 2018-02 Yes [id number] 600mg Take 1 [facility] 600 mg 1-13 tablet by ity of tablet 00:00: mouth [place] 00 every 6 Medical (six) Branch hours as needed for Pain (scale 4-6). ibuprofen 2018-02 Yes [id number] 600mg Take 1 [facility] 600 mg 1-13 tablet by ity of tablet 00:00: mouth [place] 00 every 6 Medical (six) Branch hours as needed for Pain (scale 4-6). ibuprofen 2018-02 Yes [id number] 600mg Take 1 [facility] 600 mg 1-13 tablet by ity of tablet 00:00: mouth [place] 00 every 6 Medical (six) Branch hours as needed for Pain (scale 4-6). ibuprofen 2018-02 Yes [id number] 600mg Take 1 [facility] 600 mg 1-13 tablet by ity of tablet 00:00: mouth [place] 00 every 6 Medical (six) Branch hours as needed for Pain (scale 4-6). ibuprofen 2018-02 Yes [id number] 600mg Take 1 [facility] 600 mg 1-13 tablet by ity of tablet 00:00: mouth [place] 00 every 6 Medical (six) Branch hours as needed for Pain (scale 4-6). ibuprofen 2018-02 Yes [id number] 600mg Take 1 [facility] 600 mg 1-13 tablet by ity of tablet 00:00: mouth [place] 00 every 6 Medical (six) Branch hours as needed for Pain (scale 4-6). ibuprofen 2018- Yes [id number] 600mg Take 1 [facility] 600 mg 1-13 tablet by ity of tablet 00:00: mouth [place] 00 every 6 Medical (six) Branch hours as needed for Pain (scale 4-6). ibuprofen 2018-02 Yes [id number] 600mg Take 1 [facility] 600 mg 1-13 tablet by ity of tablet 00:00: mouth [place] 00 every 6 Medical (six) Branch hours as needed for Pain (scale 4-6). ibuprofen 2018-02 Yes [id number] 600mg Take 1 [facility] 600 mg 1-13 tablet by ity of tablet 00:00: mouth [place] 00 every 6 Medical (six) Branch hours as needed for Pain (scale 4-6). ibuprofen 2018-02 Yes [id number] 600mg Take 1 [facility] 600 mg 1-13 tablet by ity of tablet 00:00: mouth [place] 00 every 6 Medical (six) Branch hours as needed for Pain (scale 4-6). ibuprofen 2018-02 Yes [id number] 600mg Take 1 [facility] 600 mg 1-13 tablet by ity of tablet 00:00: mouth [place] 00 every 6 Medical (six) Branch hours as needed for Pain (scale 4-6). ibuprofen 2018-02 Yes [id number] 600mg Take 1 [facility] 600 mg 1-13 tablet by ity of tablet 00:00: mouth [place] 00 every 6 Medical (six) Branch hours as needed for Pain (scale 4-6). ibuprofen 2018-02 Yes [id number] 600mg Take 1 [facility] 600 mg 1-13 tablet by ity of tablet 00:00: mouth [place] 00 every 6 Medical (six) Branch hours as needed for Pain (scale 4-6). ibuprofen 2018-02 Yes [id number] 600mg Take 1 [facility] 600 mg 1-13 tablet by ity of tablet 00:00: mouth [place] 00 every 6 Medical (six) Branch hours as needed for Pain (scale 4-6). ibuprofen 2018-02 Yes [id number] 600mg Take 1 [facility] 600 mg 1-13 tablet by ity of tablet 00:00: mouth [place] 00 every 6 Medical (six) Branch hours as needed for Pain (scale 4-6). ibuprofen 2018-02 Yes [id number] 600mg Take 1 [facility] 600 mg 1-13 tablet by ity of tablet 00:00: mouth [place] 00 every 6 Medical (six) Branch hours as needed for Pain (scale 4-6). ibuprofen 2018- Yes [id number] 600mg Take 1 [facility] 600 mg 1-13 tablet by ity of tablet 00:00: mouth [place] 00 every 6 Medical (six) Branch hours as needed for Pain (scale 4-6). ibuprofen 2018- Yes [id number] 600mg Take 1 [facility] 600 mg 1-13 tablet by ity of tablet 00:00: mouth [place] 00 every 6 Medical (six) Branch hours as needed for Pain (scale 4-6). ibuprofen 2018-02 Yes [id number] 600mg Take 1 [facility] 600 mg 1-13 tablet by ity of tablet 00:00: mouth [place] 00 every 6 Medical (six) Branch hours as needed for Pain (scale 4-6). ibuprofen 2018-02 Yes [id number] 600mg Take 1 [facility] 600 mg 1-13 tablet by ity of tablet 00:00: mouth [place] 00 every 6 Medical (six) Branch hours as needed for Pain (scale 4-6). ibuprofen 2018-02 Yes [id number] 600mg Take 1 [facility] 600 mg 1-13 tablet by ity of tablet 00:00: mouth [place] 00 every 6 Medical (six) Branch hours as needed for Pain (scale 4-6). ibuprofen 2018-02 Yes [id number] 600mg Take 1 [facility] 600 mg 1-13 tablet by ity of tablet 00:00: mouth [place] 00 every 6 Medical (six) Branch hours as needed for Pain (scale 4-6). ibuprofen 2018-02 Yes [id number] 600mg Take 1 [facility] 600 mg 1-13 tablet by ity of tablet 00:00: mouth [place] 00 every 6 Medical (six) Branch hours as needed for Pain (scale 4-6). ibuprofen 2018-02 Yes [id number] 600mg Take 1 [facility] 600 mg 1-13 tablet by ity of tablet 00:00: mouth [place] 00 every 6 Medical (six) Branch hours as needed for Pain (scale 4-6). ibuprofen 2018-02 Yes [id number] 600mg Take 1 [facility] 600 mg 1-13 tablet by ity of tablet 00:00: mouth [place] 00 every 6 Medical (six) Branch hours as needed for Pain (scale 4-6). ibuprofen 2018- Yes [id number] 600mg Take 1 [facility] 600 mg 1-13 tablet by ity of tablet 00:00: mouth [place] 00 every 6 Medical (six) Branch hours as needed for Pain (scale 4-6). ibuprofen 2018- Yes [id number] 600mg Take 1 [facility] 600 mg 1-13 tablet by ity of tablet 00:00: mouth [place] 00 every 6 Medical (six) Branch hours as needed for Pain (scale 4-6). ibuprofen 2018- Yes [id number] 600mg Take 1 [facility] 600 mg 1-13 tablet by ity of tablet 00:00: mouth [place] 00 every 6 Medical (six) Branch hours as needed for Pain (scale 4-6). ibuprofen 2018-02 Yes [id number] 600mg Take 1 [facility] 600 mg 1-13 tablet by ity of tablet 00:00: mouth [place] 00 every 6 Medical (six) Branch hours as needed for Pain (scale 4-6). ibuprofen 2018-02 Yes [id number] 600mg Take 1 [facility] 600 mg 1-13 tablet by ity of tablet 00:00: mouth [place] 00 every 6 Medical (six) Branch hours as needed for Pain (scale 4-6). ibuprofen 2018-02 Yes [id number] 600mg Take 1 [facility] 600 mg 1-13 tablet by ity of tablet 00:00: mouth [place] 00 every 6 Medical (six) Branch hours as needed for Pain (scale 4-6). ibuprofen 2018-02 Yes [id number] 600mg Take 1 [facility] 600 mg 1-13 tablet by ity of tablet 00:00: mouth [place] 00 every 6 Medical (six) Branch hours as needed for Pain (scale 4-6). ibuprofen 2018-02 Yes [id number] 600mg Take 1 [facility] 600 mg 1-13 tablet by ity of tablet 00:00: mouth [place] 00 every 6 Medical (six) Branch hours as needed for Pain (scale 4-6). ibuprofen 2018-02 Yes [id number] 600mg Take 1 [facility] 600 mg 1-13 tablet by ity of tablet 00:00: mouth [place] 00 every 6 Medical (six) Branch hours as needed for Pain (scale 4-6). ibuprofen 2018-02 Yes [id number] 600mg Take 1 [facility] 600 mg 1-13 tablet by ity of tablet 00:00: mouth [place] 00 every 6 Medical (six) Branch hours as needed for Pain (scale 4-6). ibuprofen 2018- Yes [id number] 600mg Take 1 [facility] 600 mg 1-13 tablet by ity of tablet 00:00: mouth [place] 00 every 6 Medical (six) Branch hours as needed for Pain (scale 4-6). ibuprofen 2018- Yes [id number] 600mg Take 1 [facility] 600 mg 1-13 tablet by ity of tablet 00:00: mouth [place] 00 every 6 Medical (six) Branch hours as needed for Pain (scale 4-6). ibuprofen 2018-02 Yes [id number] 600mg Take 1 [facility] 600 mg 1-13 tablet by ity of tablet 00:00: mouth [place] 00 every 6 Medical (six) Branch hours as needed for Pain (scale 4-6). ibuprofen 2018-02 Yes [id number] 600mg Take 1 [facility] 600 mg 1-13 tablet by ity of tablet 00:00: mouth [place] 00 every 6 Medical (six) Branch hours as needed for Pain (scale 4-6). ibuprofen 2018-02 Yes [id number] 600mg Take 1 [facility] 600 mg 1-13 tablet by ity of tablet 00:00: mouth [place] 00 every 6 Medical (six) Branch hours as needed for Pain (scale 4-6). ibuprofen 2018-02 Yes [id number] 600mg Take 1 [facility] 600 mg 1-13 tablet by ity of tablet 00:00: mouth [place] 00 every 6 Medical (six) Branch hours as needed for Pain (scale 4-6). ibuprofen 2018-02 No [id number] 600mg Take 1 [facility] 600 mg 1-13 10-24 tablet by ity of tablet 00:00: 00:00 mouth [place] 00 :00 every 6 Medical (six) Branch hours as needed for Pain (scale 4-6). cyclobenzap 2018-02- No [id number] 10mg Take 1 [facility] rine 10 mg -27 03-14 tablet by ity of tablet 00:00: 00:00 mouth 3 [place] 00 :00 (three) Medical times Branch daily. cyclobenzap 2018-02- No [id number] 10mg Take 1 [facility] rine 10 mg [...] HOURS Branch NEEDED FOR ANXIETY sodium,pota Yes [id number] Please see [facility] 6-16 instructio ity of sulfates 00:00: [facility] (SUPREP 00 provided. Medical BOWEL PREP Branch KIT) 17.5-3.13-1 .6 gram SolR sodium,pota Yes [id number] Please see [facility],mag 6-16 instructio ity of sulfates 00:00: [facility] (SUPREP 00 provided. Medical BOWEL PREP Branch KIT) 17.5-3.13-1 .6 gram SolR sodium,pota Yes [id number] Please see [facility] 6-16 instructio ity of sulfates 00:00: [facility] (SUPREP 00 provided. Medical BOWEL PREP Branch KIT) 17.5-3.13-1 .6 gram SolR sodium,pota Yes [id number] Please see [facility] 6-16 instructio ity of sulfates 00:00: [facility] (SUPREP 00 provided. Medical BOWEL PREP Branch KIT) 17.5-3.13-1 .6 gram SolR sodium,pota Yes [id number] Please see [facility] 6-16 instructio ity of sulfates 00:00: [facility] (SUPREP 00 provided. Medical BOWEL PREP Branch KIT) 17.5-3.13-1 .6 gram SolR sodium,pota Yes [id number] Please see [facility] 6-16 instructio ity of sulfates 00:00: [facility] (SUPREP 00 provided. Medical BOWEL PREP Branch KIT) 17.5-3.13-1 .6 gram SolR sodium,pota Yes [id number] Please see [facility] 6-16 instructio ity of sulfates 00:00: [facility] (SUPREP 00 provided. Medical BOWEL PREP Branch KIT) 17.5-3.13-1 .6 gram SolR sodium,pota 2016-0 Yes [id number] Please see [facility] 6-16 instructio ity of sulfates 00:00: ns [place] (SUPREP 00 provided. Medical BOWEL PREP Branch KIT) 17.5-3.13-1 .6 gram SolR sodium,pota 2016-0 Yes [id number] Please see [facility] 6-16 instructio ity of sulfates 00:00: ns [place] (SUPREP 00 provided. Medical BOWEL PREP Branch KIT) 17.5-3.13-1 .6 gram SolR sodium,pota 2016-0 Yes [id number] Please see [facility] 6-16 instructio ity of sulfates 00:00: ns [place] (SUPREP 00 provided. Medical BOWEL PREP Branch KIT) 17.5-3.13-1 .6 gram SolR sodium,pota 2016-0 Yes [id number] Please see [facility] 6-16 instructio ity of sulfates 00:00: ns [place] (SUPREP 00 provided. Medical BOWEL PREP Branch KIT) 17.5-3.13-1 .6 gram SolR sodium,pota 2016-0 Yes [id number] Please see [facility] 6-16 instructio ity of sulfates 00:00: ns [place] (SUPREP 00 provided. Medical BOWEL PREP Branch KIT) 17.5-3.13-1 .6 gram SolR sodium,pota 2016-0 Yes [id number] Please see [facility] 6-16 instructio ity of sulfates 00:00: ns [place] (SUPREP 00 provided. Medical BOWEL PREP Branch KIT) 17.5-3.13-1 .6 gram SolR sodium,pota 2016-0 Yes [id number] Please see [facility] 6-16 instructio ity of sulfates 00:00: ns [place] (SUPREP 00 provided. Medical BOWEL PREP Branch KIT) 17.5-3.13-1 .6 gram SolR sodium,pota 2016-0 Yes [id number] Please see [facility] 6-16 instructio ity of sulfates 00:00: ns [place] (SUPREP 00 provided. Medical BOWEL PREP Branch KIT) 17.5-3.13-1 .6 gram SolR sodium,pota 2016-0 Yes [id number] Please see [facility] 616 instructio ity of sulfates 00:00: ns [place] (SUPREP 00 provided. Medical BOWEL PREP Branch KIT) 17.5-3.13-1 .6 gram SolR sodium,pota 2016-0 Yes [id number] Please see [facility] 6-16 instructio ity of sulfates 00:00: [facility] (SUPREP 00 provided. Medical BOWEL PREP Branch KIT) 17.5-3.13-1 .6 gram SolR sodium,pota 2016-0 Yes [id number] Please see [facility] 6-16 instructio ity of sulfates 00:00: [facility] (SUPREP 00 provided. Medical BOWEL PREP Branch KIT) 17.5-3.13-1 .6 gram SolR sodium,pota 2016-0 Yes [id number] Please see [facility] 6-16 instructio ity of sulfates 00:00: [facility] (SUPREP 00 provided. Medical BOWEL PREP Branch KIT) 17.5-3.13-1 .6 gram SolR sodium,pota 2016-0 Yes [id number] Please see [facility] 6-16 instructio ity of sulfates 00:00: [facility] (SUPREP 00 provided. Medical BOWEL PREP Branch KIT) 17.5-3.13-1 .6 gram SolR sodium,pota 2016-0 Yes [id number] Please see [facility] 6-16 instructio ity of sulfates 00:00: [facility] (SUPREP 00 provided. Medical BOWEL PREP Branch KIT) 17.5-3.13-1 .6 gram SolR sodium,pota 2016-0 Yes [id number] Please see [facility] 6-16 instructio ity of sulfates 00:00: [facility] (SUPREP 00 provided. Medical BOWEL PREP Branch KIT) 17.5-3.13-1 .6 gram SolR sodium,pota 2016-0 Yes [id number] Please see [facility] 6-16 instructio ity of sulfates 00:00: [facility] (SUPREP 00 provided. Medical BOWEL PREP Branch KIT) 17.5-3.13-1 .6 gram SolR sodium,pota 2016-0 Yes [id number] Please see [facility] 6-16 instructio ity of sulfates 00:00: [facility] (SUPREP 00 provided. Medical BOWEL PREP Branch KIT) 17.5-3.13-1 .6 gram SolR sodium,pota 2016-0 Yes [id number] Please see [facility] 6-16 instructio ity of sulfates 00:00: ns [place] (SUPREP 00 provided. Medical BOWEL PREP Branch KIT) 17.5-3.13-1 .6 gram SolR sodium,pota 2016-0 Yes [id number] Please see [facility] 6-16 instructio ity of sulfates 00:00: ns [place] (SUPREP 00 provided. Medical BOWEL PREP Branch KIT) 17.5-3.13-1 .6 gram SolR sodium,pota 2016-0 Yes [id number] Please see [facility] 6-16 instructio ity of sulfates 00:00: [facility] (SUPREP 00 provided. Medical BOWEL PREP Branch KIT) 17.5-3.13-1 .6 gram SolR sodium,pota 2016-0 Yes [id number] Please see [facility] 6-16 instructio ity of sulfates 00:00: [facility] (SUPREP 00 provided. Medical BOWEL PREP Branch KIT) 17.5-3.13-1 .6 gram SolR sodium,pota 2016-0 Yes [id number] Please see [facility] [place] [facility] instructio ity of sulfates 00:00: [facility] (SUPREP 00 provided. Medical BOWEL PREP Branch KIT) 17.5-3.13-1 .6 gram SolR sodium,pota 2016-0 Yes [id number] Please see [facility] [place] [facility] instructio ity of sulfates 00:00: [facility] (SUPREP 00 provided. Medical BOWEL PREP Branch KIT) 17.5-3.13-1 .6 gram SolR sodium,pota 2016-0 Yes [id number] Please see [facility] [place] [facility] instructio ity of sulfates 00:00: [facility] (SUPREP 00 provided. Medical BOWEL PREP Branch KIT) 17.5-3.13-1 .6 gram SolR sodium,pota 2016-0 Yes [id number] Please see [facility] [place] [facility] instructio ity of sulfates 00:00: [facility] (SUPREP 00 provided. Medical BOWEL PREP Branch KIT) 17.5-3.13-1 .6 gram SolR sodium,pota 2016-0 Yes [id number] Please see [facility],mag 6-16 instructio ity of sulfates 00:00: ns [place] (SUPREP 00 provided. Medical BOWEL PREP Branch KIT) 17.5-3.13-1 .6 gram SolR sodium,pota 2020- No [id number] Please see [facility],mag 6-16 04-18 instructio ity of sulfates 00:00: 00:00 ns [place] (SUPREP 00 :00 provided. Medical BOWEL PREP [...] 15 mcg/hour 00 :00 24 Medical [facility] ([facility] ur) hours. ondansetron [id number] Yes Univer [...] 5-18 ity of mg tablet 00:00: Medical [place] ondansetron 2016-0 Yes Univer s (ZOFRAN) 4 [...] 4 5-18 ity of mg tablet 00:00: [place] [facility] ondansetron 2016 Yes Univer s (ZOFRAN) 4 5-18 ity of mg tablet 00:00: [place] [facility] ondansetron Yes Univer s (ZOFRAN) 4 5-18 ity of mg tablet 00:00: [place] [facility] ondansetron Yes Univer s (ZOFRAN) 4 5-18 ity of mg tablet 00:00: Medical Branch ondansetron Yes Univer s (ZOFRAN) 4 5-18 ity of mg tablet 00:00: [place] [facility] ondansetron Yes Univer s (ZOFRAN) 4 5-18 ity of mg tablet 00:00: [facility] ondansetron 0 2020- No Unive rs (ZOFRAN) 4 5-18 04-14 ity of mg tablet 00:00: 00:00 [place] 00 :00 Medical Branch LYRICA 75 2020- No Univers mg capsule 06-29 02-14 ity of 00:00: 00:00 [place] 00 :00 Medical Branch LYRICA 75 2020- No Univers mg capsule 18 02-14 ity of 00:00: 00:00 [place] 00 :00 [facility] mesalamine Yes 1000mg Take [...] 0.4 mg 24 00:00: daily. [place] capsule [facility] tamsulosin 2014-02 Yes .4mg Take 1 Cap U nivers (FLOMAX) 0-20 by mouth ity of 0.4 mg 24 00:00: daily. [place] hr capsule [facility] tamsulosin 2014-02 Yes .4mg Take 1 Cap U nivers (FLOMAX) 0-20 by mouth ity of 0.4 mg 24 00:00: daily. [place] hr capsule [facility] tamsulosin 2014-02 Yes .4mg Take 1 Cap U nivers (FLOMAX) 0-20 by mouth ity of 0.4 mg 24 00:00: daily. [place] hr capsule [facility] tamsulosin 2014-02 Yes .4mg Take 1 Cap U nivers (FLOMAX) 0-20 by mouth ity of 0.4 mg 24 00:00: daily. [place] hr capsule [facility] tamsulosin 2014-02 Yes .4mg Take 1 Cap U nivers (FLOMAX) 0-20 by mouth ity of 0.4 mg 24 00:00: daily. [place] hr capsule [facility] tamsulosin 2014-02 Yes .4mg Take 1 Cap U nivers (FLOMAX) 0-20 by mouth ity of 0.4 mg 24 00:00: daily. [facility] capsule [facility] tamsulosin 2014-02 Yes .4mg Take 1 Cap U nivers (FLOMAX) 0-20 by mouth ity of 0.4 mg 24 00:00: daily. [facility] capsule [facility] tamsulosin 2014-02 Yes .4mg Take 1 Cap U nivers (FLOMAX) 0-20 by mouth ity of 0.4 mg 24 00:00: daily. [facility] capsule [facility] tamsulosin 2014-02 Yes .4mg Take 1 Cap U nivers (FLOMAX) 0-20 by mouth ity of 0.4 mg 24 00:00: daily. [facility] capsule [facility] tamsulosin 2014-02 Yes .4mg Take 1 Cap U nivers (FLOMAX) 0-20 by mouth ity of 0.4 mg 24 00:00: daily. [facility] capsule [facility] tamsulosin 2014-02 Yes .4mg Take 1 Cap U nivers (FLOMAX) 0-20 by mouth ity of 0.4 mg 24 00:00: daily. [facility] capsule [facility] tamsulosin 2014-02 Yes .4mg Take 1 Cap U nivers (FLOMAX) 0-20 by mouth ity of 0.4 mg 24 00:00: daily. [facility] capsule [facility] tamsulosin 2014-02 Yes .4mg Take 1 Cap U nivers (FLOMAX) 0-20 by mouth ity of 0.4 mg 24 00:00: daily. [facility] capsule [facility] tamsulosin 2014-02 Yes .4mg Take 1 Cap U nivers (FLOMAX) 0-20 by mouth ity of 0.4 mg 24 00:00: daily. [facility] capsule [facility] tamsulosin 2014-02 Yes .4mg Take 1 Cap U nivers (FLOMAX) 0-20 by mouth ity of 0.4 mg 24 00:00: daily. [facility] capsule [facility] tamsulosin 2014-02 Yes .4mg Take 1 Cap U nivers (FLOMAX) 0-20 by mouth ity of 0.4 mg 24 00:00: daily. [facility] capsule [facility] tamsulosin 2014-02 Yes .4mg Take 1 Cap U nivers (FLOMAX) 0-20 by mouth ity of 0.4 mg 24 00:00: daily. [facility] capsule [facility] tamsulosin 2014-02 Yes .4mg Take 1 Cap U nivers (FLOMAX) 0-20 by mouth ity of 0.4 mg 24 00:00: daily. [facility] capsule [facility] tamsulosin 2014-02 Yes .4mg Take 1 Cap U nivers (FLOMAX) 0-20 by mouth ity of 0.4 mg 24 00:00: daily. [facility] capsule [facility] tamsulosin 2014-02 Yes .4mg Take 1 Cap U nivers (FLOMAX) 0-20 by mouth ity of 0.4 mg 24 00:00: daily. [facility] capsule [facility] tamsulosin 2014-02 Yes .4mg Take 1 Cap U nivers (FLOMAX) 0-20 by mouth ity of 0.4 mg 24 00:00: daily. [facility] [place] [facility] tamsulosin 2014-02 Yes .4mg Take 1 Cap U nivers (FLOMAX) 0-20 by mouth ity of 0.4 mg 24 00:00: daily. [facility] [place] [facility] tamsulosin 2014-02 Yes .4mg Take 1 Cap U nivers (FLOMAX) 0-20 by mouth ity of 0.4 mg 24 00:00: daily. [facility] capsule [facility] tamsulosin 2014-02 Yes .4mg Take 1 Cap U nivers (FLOMAX) 0-20 by mouth ity of 0.4 mg 24 00:00: daily. [facility] [place] [facility] tamsulosin 2014-02 Yes .4mg Take 1 Cap U nivers (FLOMAX) 0-20 by mouth ity of 0.4 mg 24 00:00: daily. [facility] [place] [facility] tamsulosin 2014-02 Yes .4mg Take 1 Cap U nivers (FLOMAX) 0-20 by mouth ity of 0.4 mg 24 00:00: daily. [facility] capsule [facility] tamsulosin 2014-02 Yes .4mg Take 1 Cap U nivers (FLOMAX) 0-20 by mouth ity of 0.4 mg 24 00:00: daily. [facility] [place] [facility] tamsulosin 2014-02- No .4mg Take 1 Cap Univers (FLOMAX) 0-20 - by mouth ity of 0.4 mg 24 00:00: 00:00 daily. [place] hr capsule 00 :00 [facility] [place] Yes [place] [address] [facility] [...] Immunizations Ordered Filled Immunization Date Status Comments [facility] e Immunization Name Name Twinrix (hep a/hep 2015-07-29 Completed Univer sity of b) 00:00:00 [facility] Twinrix (hep a/hep 2015-07-29 Completed Univer sity of b) 00:00:00 [facility] Twinrix (hep a/hep 2015-07-29 Completed Univer sity of b) 00:00:00 [facility] Twinrix (hep a/hep 2015-07-29 Completed Univer sity of b) 00:00:00 [facility] Twinrix (hep a/hep 2015-07-29 Completed Univer sity of b) 00:00:00 [facility] Twinrix (hep a/hep 2015-07-29 Completed Univer sity of b) 00:00:00 [facility] Twinrix (hep a/hep 2015-07-29 Completed Univer sity of b) 00:00:00 [facility] Twinrix (hep a/hep 2015-07-29 Completed Univer sity of b) 00:00:00 [facility] Twinrix (hep a/hep 2015-07-29 Completed Univer sity of b) 00:00:00 [facility] Twinrix (hep a/hep 2015-07-29 Completed Univer sity of b) 00:00:00 [facility] Twinrix (hep a/hep 2015-07-29 Completed Univer sity of b) 00:00:00 [facility] Twinrix (hep a/hep 2015-07-29 Completed Univer sity of b) 00:00:00 [place] [facility] Twinrix (hep a/hep 2015-07-29 Completed Univer sity of b) 00:00:00 [place] [facility] Twinrix (hep a/hep 2015-07-29 Completed Univer sity of b) 00:00:00 [place] [facility] Twinrix (hep a/hep 2015-07-29 Completed Univer sity of b) 00:00:00 [place] [facility] Twinrix (hep a/hep 2015-07-29 Completed Univer sity of b) 00:00:00 [facility] Twinrix (hep a/hep 2015-07-29 Completed Univer sity of b) 00:00:00 [facility] Twinrix (hep a/hep 2015-07-29 Completed Univer sity of b) 00:00:00 [facility] Twinrix (hep a/hep 2015-07-29 Completed Univer sity of b) 00:00:00 [facility] Twinrix (hep a/hep 2015-07-29 Completed Univer sity of b) 00:00:00 [facility] Twinrix (hep a/hep 2015-07-29 Completed Univer sity of b) 00:00:00 [facility] Twinrix (hep a/hep 2015-07-29 Completed Univer sity of b) 00:00:00 [place] [facility] Twinrix (hep a/hep 2015-07-29 Completed Univer sity of b) 00:00:00 [place] [facility] Twinrix (hep a/hep 2015-07-29 Completed Univer sity of b) 00:00:00 [place] [facility] Twinrix (hep a/hep 2015-07-29 Completed Univer sity of b) 00:00:00 [place] [facility] Twinrix (hep a/hep 2015-07-29 Completed Univer sity of b) 00:00:00 [place] [facility] Twinrix (hep a/hep 2015-07-29 Completed Univer sity of b) 00:00:00 [facility] Twinrix (hep a/hep 2015-07-29 Completed Univer sity of b) 00:00:00 [place] [facility] Twinrix (hep a/hep 2015-07-29 Completed Univer sity of b) 00:00:00 [facility] Twinrix (hep a/hep 2015-07-29 Completed Univer sity of b) 00:00:00 [place] [facility] Twinrix (hep a/hep 2015-07-29 Completed Univer sity of b) 00:00:00 [facility] Twinrix (hep a/hep 2015-07-29 Completed Univer sity of b) 00:00:00 [facility] Twinrix (hep a/hep 2015-07-29 Completed Univer sity of b) 00:00:00 [facility] Twinrix (hep a/hep 2015-07-29 Completed Univer sity of b) 00:00:00 [facility] Twinrix (hep a/hep 2015-07-29 Completed Univer sity of b) 00:00:00 [facility] Twinrix (hep a/hep 2015-07-29 Completed Univer sity of b) 00:00:00 [facility] Twinrix (hep a/hep 2015-07-29 Completed Univer sity of b) 00:00:00 [facility] Twinrix (hep a/hep 2015-07-29 Completed Univer sity of b) 00:00:00 [facility] Twinrix (hep a/hep 2015-07-29 Completed Univer sity of b) 00:00:00 [facility] Twinrix (hep a/hep 2015-07-29 Completed Univer sity of b) 00:00:00 [facility] Twinrix (hep a/hep 2015-07-29 Completed Univer sity of b) 00:00:00 [facility] Twinrix (hep a/hep 2015-07-29 Completed Univer sity of b) 00:00:00 [facility] Twinrix (hep a/hep 2015-07-29 Completed Univer sity of b) 00:00:00 [facility] Twinrix (hep a/hep 2015-07-29 Completed Univer sity of b) 00:00:00 [facility] Twinrix (hep a/hep 2015-07-29 Completed Univer sity of b) 00:00:00 [facility] Twinrix (hep a/hep 2015-07-29 Completed Univer sity of b) 00:00:00 [facility] Twinrix (hep a/hep 2015-07-29 Completed Univer sity of b) 00:00:00 [facility] Twinrix (hep a/hep 2015-07-29 Completed Univer sity of b) 00:00:00 [facility] Twinrix (hep a/hep 2015-07-29 Completed Univer sity of b) 00:00:00 [facility] Twinrix (hep a/hep 2015-07-29 Completed Univer sity of b) 00:00:00 [facility] Twinrix (hep a/hep 2015-07-29 Completed Univer sity of b) 00:00:00 [facility] Twinrix (hep a/hep 2015-07-29 Completed Univer sity of b) 00:00:00 [facility] Twinrix (hep a/hep 2015-07-29 Completed Univer sity of b) 00:00:00 [facility] Twinrix (hep a/hep 2015-07-29 Completed Univer sity of b) 00:00:00 [facility] Twinrix (hep a/hep 2015-07-29 Completed Univer sity of b) 00:00:00 [facility] Twinrix (hep a/hep 2015-07-29 Completed Univer sity of b) 00:00:00 [facility] Twinrix (hep a/hep 2015-07-29 Completed Univer sity of b) 00:00:00 [facility] Twinrix (hep a/hep 2015-07-29 Completed Univer sity of b) 00:00:00 [facility] Twinrix (hep a/hep 2015-07-29 Completed Univer sity of b) 00:00:00 [facility] Twinrix (hep a/hep 2015-07-29 Completed Univer sity of b) 00:00:00 [facility] Twinrix (hep a/hep 2015-07-29 Completed Univer sity of b) 00:00:00 [facility] Influenza Virus 2015-06-29 Completed Universit y of Vaccine Quad IM 3+ 00:00:[address] [facility] Influenza Virus 2015-06-29 Completed Universit y of Vaccine Quad IM 3+ 00:00:[address] [facility] Influenza Virus 2015-06-29 Completed Universit y of Vaccine Quad IM 3+ 00:00:[address] [facility] Influenza Virus 2015-06-29 Completed Universit y of Vaccine Quad IM 3+ 00:00:[address] [facility] Influenza Virus 2015-06-29 Completed Universit y of Vaccine Quad IM 3+ 00:00:[address] [facility] Influenza Virus 2015-06-29 Completed Universit y of Vaccine Quad IM 3+ 00:00:[address] [facility] Influenza Virus 2015-06-29 Completed Universit y of Vaccine Quad IM 3+ 00:00:[address] [facility] Influenza Virus 2015-06-29 Completed Universit y of Vaccine Quad IM 3+ 00:00:[address] [facility] Influenza Virus 2015-06-29 Completed Universit y of Vaccine Quad IM 3+ 00:00:[address] [facility] Influenza Virus 2015-06-29 Completed Universit y of Vaccine Quad IM 3+ 00:00:[address] [facility] Influenza Virus 2015-06-29 Completed Universit y of Vaccine Quad IM 3+ 00:00:[address] [facility] Influenza Virus 2015-06-29 Completed Universit y of Vaccine Quad IM 3+ 00:00:[address] [facility] Influenza Virus 2015-06-29 Completed Universit y of Vaccine Quad IM 3+ 00:00:[address] [facility] Influenza Virus 2015-06-29 Completed Universit y of Vaccine Quad IM 3+ 00:00:[address] [facility] Influenza Virus 2015-06-29 Completed Universit y of Vaccine Quad IM 3+ 00:00:[address] [facility] Influenza Virus 2015-06-29 Completed Universit y of Vaccine Quad IM 3+ 00:00:[address] [facility] Influenza Virus 2015-06-29 Completed Universit y of Vaccine Quad IM 3+ 00:00:[address] [facility] Influenza Virus 2015-06-29 Completed Universit y of Vaccine Quad IM 3+ 00:00:[address] [facility] Influenza Virus 2015-06-29 Completed Universit y of Vaccine Quad IM 3+ 00:00:[address] [facility] Influenza Virus 2015-06-29 Completed Universit y of Vaccine Quad IM 3+ 00:00:[address] [facility] Influenza Virus 2015-06-29 Completed Universit y of Vaccine Quad IM 3+ 00:00:[address] [facility] Influenza Virus 2015-06-29 Completed Universit y of Vaccine Quad IM 3+ 00:00:[address] [facility] Influenza Virus 2015-06-29 Completed Universit y of Vaccine Quad IM 3+ 00:00:[address] [facility] Influenza Virus 2015-06-29 Completed Universit y of Vaccine Quad IM 3+ 00:00:[address] [facility] Influenza Virus 2015-06-29 Completed Universit y of Vaccine Quad IM 3+ 00:00:[address] [facility] Influenza Virus 2015-06-29 Completed Universit y of Vaccine Quad IM 3+ 00:00:[address] [facility] Influenza Virus 2015-06-29 Completed Universit y of Vaccine Quad IM 3+ 00:00:[address] [facility] Influenza Virus 2015-06-29 Completed Universit y of Vaccine Quad IM 3+ 00:00:[address] [facility] Influenza Virus 2015-06-29 Completed Universit y of Vaccine Quad IM 3+ 00:00:[address] [facility] Influenza Virus 2015-06-29 Completed Universit y of Vaccine Quad IM 3+ 00:00:[address] [facility] Influenza Virus 2015-06-29 Completed Universit y of Vaccine Quad IM 3+ 00:00:[address] [facility] Influenza Virus 2015-06-29 Completed Universit y of Vaccine Quad IM 3+ 00:00:[address] [facility] Influenza Virus 2015-06-29 Completed Universit y of Vaccine Quad IM 3+ 00:00:[address] [facility] Influenza Virus 2015-06-29 Completed Universit y of Vaccine Quad IM 3+ 00:00:[address] [facility] Influenza Virus 2015-06-29 Completed Universit y of Vaccine Quad IM 3+ 00:00:[address] [facility] Influenza Virus 2015-06-29 Completed Universit y of Vaccine Quad IM 3+ 00:00:[address] [facility] Influenza Virus 2015-06-29 Completed Universit y of Vaccine Quad IM 3+ 00:00:[address] [facility] Influenza Virus 2015-06-29 Completed Universit y of Vaccine Quad IM 3+ 00:00:[address] [facility] Influenza Virus 2015-06-29 Completed Universit y of Vaccine Quad IM 3+ 00:00:[address] [facility] Influenza Virus 2015-06-29 Completed Universit y of Vaccine Quad IM 3+ 00:00:[address] [facility] Influenza Virus 2015-06-29 Completed Universit y of Vaccine Quad IM 3+ 00:00:[address] [facility] Influenza Virus 2015-06-29 Completed Universit y of Vaccine Quad IM 3+ 00:00:[address] [facility] Influenza Virus 2015-06-29 Completed Universit y of Vaccine Quad IM 3+ 00:00:[address] [facility] Influenza Virus 2015-06-29 Completed Universit y of Vaccine Quad IM 3+ 00:00:[address] [facility] Influenza Virus 2015-06-29 Completed Universit y of Vaccine Quad IM 3+ 00:00:[address] [facility] Influenza Virus 2015-06-29 Completed Universit y of Vaccine Quad IM 3+ 00:00:[address] [facility] Influenza Virus 2015-06-29 Completed Universit y of Vaccine Quad IM 3+ 00:00:[address] [facility] Influenza Virus 2015-06-29 Completed Universit y of Vaccine Quad IM 3+ 00:00:[address] [facility] Influenza Virus 2015-06-29 Completed Universit y of Vaccine Quad IM 3+ 00:00:[address] [facility] Influenza Virus 2015-06-29 Completed Universit y of Vaccine Quad IM 3+ 00:00:[address] [facility] Influenza Virus 2015-06-29 Completed Universit y of Vaccine Quad IM 3+ 00:00:[address] [facility] Influenza Virus 2015-06-29 Completed Universit y of Vaccine Quad IM 3+ 00:00:[address] [facility] Influenza Virus 2015-06-29 Completed Universit y of Vaccine Quad IM 3+ 00:00:[address] [facility] Influenza Virus 2015-06-29 Completed Universit y of Vaccine Quad IM 3+ 00:00:[address] [facility] Influenza Virus 2015-06-29 Completed Universit y of Vaccine Quad IM 3+ 00:00:[address] [facility] Influenza Virus 2015-06-29 Completed Universit y of Vaccine Quad IM 3+ 00:00:[address] [facility] Influenza Virus 2015-06-29 Completed Universit y of Vaccine Quad IM 3+ 00:00:[address] [facility] Influenza Virus 2015-06-29 Completed Universit y of Vaccine Quad IM 3+ 00:00:[address] [facility] Influenza Virus 2015-06-29 Completed Universit y of Vaccine Quad IM 3+ 00:00:[address] [facility] Influenza Virus 2015-06-29 Completed Universit y of Vaccine Quad IM 3+ 00:00:[address] [facility] Influenza Virus 2015-06-29 Completed Universit y of Vaccine Quad IM 3+ 00:00:[address] [facility] Twinrix (hep a/hep 2015-06-28 Completed Univer sity of b) 00:00:00 [facility] Twinrix (hep a/hep 2015-06-28 Completed Univer sity of b) 00:00:00 [facility] Twinrix (hep a/hep 2015-06-28 Completed Univer sity of b) 00:00:00 [facility] Twinrix (hep a/hep 2015-06-28 Completed Univer sity of b) 00:00:00 [facility] Twinrix (hep a/hep 2015-06-28 Completed Univer sity of b) 00:00:00 [facility] Twinrix (hep a/hep 2015-06-28 Completed Univer sity of b) 00:00:00 [facility] Twinrix (hep a/hep 2015-06-28 Completed Univer sity of b) 00:00:00 [facility] Twinrix (hep a/hep 2015-06-28 Completed Univer sity of b) 00:00:00 [facility] Twinrix (hep a/hep 2015-06-28 Completed Univer sity of b) 00:00:00 [facility] Twinrix (hep a/hep 2015-06-28 Completed Univer sity of b) 00:00:00 [facility] Twinrix (hep a/hep 2015-06-28 Completed Univer sity of b) 00:00:00 [facility] Twinrix (hep a/hep 2015-06-28 Completed Univer sity of b) 00:00:00 [facility] Twinrix (hep a/hep 2015-06-28 Completed Univer sity of b) 00:00:00 [facility] Twinrix (hep a/hep 2015-06-28 Completed Univer sity of b) 00:00:00 [facility] Twinrix (hep a/hep 2015-06-28 Completed Univer sity of b) 00:00:00 [facility] Twinrix (hep a/hep 2015-06-28 Completed Univer sity of b) 00:00:00 [facility] Twinrix (hep a/hep 2015-06-28 Completed Univer sity of b) 00:00:00 [place] [facility] Twinrix (hep a/hep 2015-06-28 Completed Univer sity of b) 00:00:00 [place] [facility] Twinrix (hep a/hep 2015-06-28 Completed Univer sity of b) 00:00:00 [place] [facility] Twinrix (hep a/hep 2015-06-28 Completed Univer sity of b) 00:00:00 [place] [facility] Twinrix (hep a/hep 2015-06-28 Completed Univer sity of b) 00:00:00 [facility] Twinrix (hep a/hep 2015-06-28 Completed Univer sity of b) 00:00:00 [facility] Twinrix (hep a/hep 2015-06-28 Completed Univer sity of b) 00:00:00 [facility] Twinrix (hep a/hep 2015-06-28 Completed Univer sity of b) 00:00:00 [facility] Twinrix (hep a/hep 2015-06-28 Completed Univer sity of b) 00:00:00 [facility] Twinrix (hep a/hep 2015-06-28 Completed Univer sity of b) 00:00:00 [facility] Twinrix (hep a/hep 2015-06-28 Completed Univer sity of b) 00:00:00 [place] [facility] Twinrix (hep a/hep 2015-06-28 Completed Univer sity of b) 00:00:00 [facility] Twinrix (hep a/hep 2015-06-28 Completed Univer sity of b) 00:00:00 [place] [facility] Twinrix (hep a/hep 2015-06-28 Completed Univer sity of b) 00:00:00 [place] [facility] Twinrix (hep a/hep 2015-06-28 Completed Univer sity of b) 00:00:00 [place] [facility] Twinrix (hep a/hep 2015-06-28 Completed Univer sity of b) 00:00:00 [facility] Twinrix (hep a/hep 2015-06-28 Completed Univer sity of b) 00:00:00 [place] [facility] Twinrix (hep a/hep 2015-06-28 Completed Univer sity of b) 00:00:00 [facility] Twinrix (hep a/hep 2015-06-28 Completed Univer sity of b) 00:00:00 [place] [facility] Twinrix (hep a/hep 2015-06-28 Completed Univer sity of b) 00:00:00 [facility] Twinrix (hep a/hep 2015-06-28 Completed Univer sity of b) 00:00:00 [facility] Twinrix (hep a/hep 2015-06-28 Completed Univer sity of b) 00:00:00 [facility] Twinrix (hep a/hep 2015-06-28 Completed Univer sity of b) 00:00:00 [facility] Twinrix (hep a/hep 2015-06-28 Completed Univer sity of b) 00:00:00 [facility] Twinrix (hep a/hep 2015-06-28 Completed [facility] b) 00:00:00 [facility] (hep a/hep 2015-06-28 Completed [facility] of b) 00:00:00 [facility] (hep a/hep 2015-06-28 Completed [facility] b) 00:00:00 [facility] (hep a/hep 2015-06-28 Completed [facility] b) 00:00:00 [facility] (hep a/hep 2015-06-28 Completed [facility] b) 00:00:00 [facility] (hep a/hep 2015-06-28 Completed [facility] b) 00:00:00 [facility] (hep a/hep 2015-06-28 Completed [facility] b) 00:00:00 [facility] (hep a/hep 2015-06-28 Completed [facility] b) 00:00:00 [facility] (hep a/hep 2015-06-28 Completed [facility] b) 00:00:00 [facility] (hep a/hep 2015-06-28 Completed [facility] b) 00:00:00 [facility] (hep a/hep 2015-06-28 Completed [facility] b) 00:00:00 [facility] (hep a/hep 2015-06-28 Completed [facility] b) 00:00:00 [facility] (hep a/hep 2015-06-28 Completed [facility] b) 00:00:00 [facility] (hep a/hep 2015-06-28 Completed [facility] b) 00:00:00 [facility] (hep a/hep 2015-06-28 Completed [facility] b) 00:00:00 [facility] (hep a/hep 2015-06-28 Completed [facility] b) 00:00:00 [facility] (hep a/hep 2015-06-28 Completed [facility] b) 00:00:00 [facility] (hep a/hep 2015-06-28 Completed [facility] b) 00:00:00 [facility] (hep a/hep 2015-06-28 Completed [facility] b) 00:00:00 [facility] (hep a/hep 2015-06-28 Completed [facility] b) 00:00:00 [facility] (hep a/hep 2015-06-28 Completed [facility] b) 00:00:00 [facility] Vital Signs Vital Name Observation Time Observation Value Comments Source Systolic blood 2020-12-12 16:16:00 97 mm[Hg] [facility]ity of pressure [facility] Diastolic blood 2020-12-12 16:16:00 67 mm[Hg] Unive rsity of pressure [facility] Heart rate 2020-12-12 16:16:00 97 /min [facility] Body temperature 2020-12-12 16:16:00 37.67 Briseida [facility] rate 2020-12-12 16:16:00 18 /min [facility] Oxygen saturation in 2020-12-12 16:16:00 93 /min [facility] Arterial blood by [facility] Pulse oximetry Branch Body weight 2020-12-12 08:45:00 95.391 kg [facility] BMI 2020-12-12 08:45:00 32.94 kg/m2 [facility] Body height 2020-12-05 22:36:00 170.2 cm [facility] Systolic blood 2020-07-14 22:03:00 156 mm[Hg] [facility] Diastolic blood 2020-07-14 22:03:00 93 mm[Hg] [facility] Heart rate 2020-07-14 22:03:00 84 /min [facility] Respiratory rate 2020-07-14 22:03:00 20 /min [facility] Oxygen saturation in 2020-07-14 22:03:00 98 /min [facility] Arterial blood by [place] [facility] Pulse oximetry Branch Body temperature 2020-07-14 03:11:00 36.67 Briseida [facility] Body weight 2020-07-13 20:13:00 83.898 kg [facility] BMI 2020-07-13 20:13:00 28.97 kg/m2 [facility] Systolic blood 2020-07-13 15:43:00 119 mm[Hg] [facility] Diastolic blood 2020-07-13 15:43:00 77 mm[Hg] [facility] Heart rate 2020-07-13 15:43:00 68 /min [facility] Oxygen saturation in 2020-07-13 15:43:00 95 /min [facility] Arterial blood by [facility] bernadine Pulse oximetry Branch Systolic blood 2020-07-07 04:00:00 142 mm[Hg] [facility] Diastolic blood 2020-07-07 04:00:00 94 mm[Hg] [facility] Heart rate 2020-07-07 04:00:00 73 /min [facility] Respiratory rate 2020-07-07 04:00:00 13 /min [facility] Oxygen saturation in 2020-07-07 04:00:00 99 /min [facility] Arterial blood by [place] [facility] P[facility] Body temperature 2020-07-07 00:04:24 36.83 Briseida [facility] Body weight 2020-07-06 23:44:00 86.183 kg [facility] BMI 2020-07-06 23:44:00 29.76 kg/m2 [facility] Systolic blood 2020-07-04 21:16:00 142 mm[Hg] [facility] Diastolic blood 2020-07-04 21:16:00 93 mm[Hg] [facility] Heart rate 2020-07-04 21:16:00 72 /min [facility] Respiratory rate 2020-07-04 21:16:00 18 /min [facility] Oxygen saturation in 2020-07-04 21:16:00 97 /min [facility]terial blood by [place] [facility] P[facility] Body temperature 2020-07-04 17:14:00 36.89 Briseida [facility] Body weight 2020-07-04 17:14:00 86.183 kg [facility] BMI 2020-07-04 17:14:00 29.76 kg/m2 [facility] Systolic blood 2020-06-28 20:07:00 110 mm[Hg] [facility] Diastolic blood 2020-06-28 20:07:00 67 mm[Hg] [facility] Heart rate 2020-06-28 20:07:00 57 /min [facility] Body temperature 2020-06-28 20:07:00 36.83 Briseida [facility] Respiratory rate 2020-06-28 20:07:00 16 /min [facility] Oxygen saturation in 2020-06-28 20:07:00 99 /min [facility] Arterial blood by [place] [facility] P[facility] Body height 2020-06-27 03:02:00 170.2 cm [facility] Body weight 2020-06-27 03:02:00 83.008 kg [facility] BMI 2020-06-27 03:02:00 28.66 kg/m2 [facility] Systolic blood 2020-06-02 16:17:00 133 mm[Hg] [facility] Diastolic blood 2020-06-02 16:17:00 89 mm[Hg] [facility] Heart rate 2020-06-02 16:17:00 72 /min [facility] Body temperature 2020-06-02 16:17:00 36.17 Briseida [facility] Respiratory rate 2020-06-02 16:17:00 20 /min [facility] Oxygen saturation in 2020-06-02 16:17:00 96 /min [facility] Arterial blood by [facility] bernadine Pulse oximetry Branch Body height 2020-05-30 22:29:00 170.2 cm [facility] Body weight 2020-05-30 22:29:00 81.647 kg [facility] BMI 2020-05-30 22:29:00 28.19 kg/m2 [facility] Systolic blood 2020-05-27 02:05:00 118 mm[Hg] [facility] Diastolic blood 2020-05-27 02:05:00 73 mm[Hg] [facility] Heart rate 2020-05-27 02:05:00 80 /min [facility] Respiratory rate 2020-05-27 02:05:00 10 /min [facility] Oxygen saturation in 2020-05-27 02:05:00 93 /min [facility] Arterial blood by [facility] bernadine Pulse oximetry Branch Body temperature 2020-05-26 23:07:00 37.22 Briseida [facility] Body height 2020-05-26 23:07:00 170.2 [...] 2020-05-13 22:00:00 16 /min [facility] Oxygen saturation in 2020-05-13 22:00:00 100 /min [facility] Arterial blood by [facility] Pulse oximetry Branch Body temperature 2020-05-13 16:33:00 37.56 Briseida [facility] Body weight 2020-05-13 16:33:00 77.111 kg [facility] BMI 2020-05-13 16:33:00 26.63 kg/m2 [facility] Systolic blood 2020-05-13 15:28:00 135 mm[Hg] [facility] Diastolic blood 2020-05-13 15:28:00 88 mm[Hg] [facility] Heart rate 2020-05-13 15:28:00 80 /min [facility] Body temperature 2020-05-13 15:28:00 36.67 Briseida [facility] Respiratory rate 2020-05-13 15:28:00 18 /min [facility] Body height 2020-05-13 15:28:00 170.2 cm [facility] Body weight 2020-05-13 15:28:00 77.111 kg [facility] BMI 2020-05-13 15:28:00 26.63 kg/m2 [facility] Oxygen saturation in 2020-05-13 15:28:00 99 /min [facility] Arterial blood by [facility] Pulse oximetry Branch Systolic blood 2020-03-23 15:48:00 130 mm[Hg] [facility] Diastolic blood 2020-03-23 15:48:00 89 mm[Hg] [facility] Heart rate 2020-03-23 15:48:00 95 /min [facility] Body height 2020-03-23 15:48:00 170.2 cm [facility] Body weight 2020-03-23 15:48:00 83.008 kg [facility] BMI 2020-03-23 15:48:00 28.66 kg/m2 [facility] Oxygen saturation in 2020-03-23 15:48:00 100 /min [facility] Arterial blood by [facility] Pulse oximetry Branch Systolic blood 2019-12-08 18:48:47 99 mm[Hg] [facility] [place] Diastolic blood 2019-12-08 18:48:47 70 mm[Hg] Unive rsity of pressure [facility] Heart rate 2019-12-08 18:48:47 63 /min [facility] of [facility] Respiratory rate 2019-12-08 18:48:47 18 /min [facility] [place] [facility] [place] Oxygen saturation in 2019-12-08 18:48:47 100 /min [facility] Arterial blood by [facility] Pulse oximetry Branch Body temperature 2019-12-08 16:07:00 37 Briseida [facility] ersity of [facility] Body height 2019-12-08 16:07:00 170.2 cm [facility] [place] Body weight 2019-12-08 16:07:00 81.647 kg [facility] [place] BMI 2019-12-08 16:07:00 28.19 kg/m2 [facility] [place] Systolic blood 2019-12-08 15:11:00 119 mm[Hg] Univer sity of pressure [facility] Diastolic blood 2019-12-08 15:11:00 80 mm[Hg] Unive rsity of pressure [facility] Heart rate 2019-12-08 15:11:00 83 /min [facility] [place] Body temperature 2019-12-08 15:11:00 36.44 Briseida [facility] of [facility] Respiratory rate 2019-12-08 15:11:00 18 /min Univ ersity of [facility] Body weight 2019-12-08 15:11:00 82.827 kg [facility] [place] BMI 2019-12-08 15:11:00 28.60 kg/m2 [facility] Procedures Procedure Date / Time Performing Clinician Source Performed PHOSPHORUS 2020-12-12 10:06:00 shakir [facility] MAGNESIUM 2020-12-12 10:06:00 [facility] BASIC METABOLIC PANEL 2020-12-12 10:06:00 [facility] ([facility], K, CL, CO2, GLUCOSE, Medica l Branch BUN, CREATININE, CA) VANCOMYCIN RANDOM LEVEL 2020-12-11 14:30:00 Nasir Fowler [facility] OSMOLALITY URINE 2020-12-11 10:41:00 Nicole Sanchez [facility] CREATININE, URINE RANDOM 2020-12-11 10:39:00 [facility] POT[facility], URINE RANDOM 2020-12-11 10:39:00 Nicole Sanchez Uni [facility] SODIUM, URINE RANDOM 2020-12-11 10:39:00 Nicole Sanchez [facility] PHOSPHORUS 2020-12-11 08:50:00 Sandrita [facility] URIC ACID 2020-12-11 08:50:00 Nicole Sanchez [facility] MAGNESIUM 2020-12-11 08:50:00 Sandrita [facility] OSMOLALITY, SERUM OR 2020-12-11 08:50:00 Nicole Sanchez [facility] PLASMA [facility] BASIC METABOLIC PANEL 2020-12-11 08:50:00 Ad Remy [facility] (NA, K, CL, CO2, GLUCOSE, Medica l Branch BUN, CREATININE, CA) CBC WITH DIFF 2020-12-11 08:50:00 Janeth [facility] URINALYSIS 2020-12-10 [facility]-12-10 [facility] 2020-12-10 17:58:00 Janeth Nasir [facility] BLOOD CULTURE SCREEN 2020-12-10 17:51:00 Janeth Nasir [facility] PHOSPHORUS 2020-12-10 17:50:[address] [facility] BASIC METABOLIC PANEL 2020-12-10 17:50:00 Nicole Sanchez [facility] (NA, K, CL, CO2, GLUCOSE, Medica l Branch BUN, CREATININE, CA) CBC WITH DIFF 2020-12-10 17:49:00 Janeth [facility] XR CHEST 1 VW 2020-12-10 17:21:04 Janeth [facility] VANCOMYCIN TROUGH 2020-12-10 14:44:00 Sandrita [facility] PHOSPHORUS 2020-12-10 10:29:00 Sandrita [facility] MAGNESIUM 2020-12-10 10:29:00 Ovshakir [facility] BASIC METABOLIC PANEL 2020-12-10 10:29:00 [facility] (NA, K, CL, CO2, GLUCOSE, Medica l Branch BUN, CREATININE, CA) BASIC METABOLIC PANEL 2020-12-10 00:50:00 Nicole Sanchez [facility] (NA, K, CL, CO2, GLUCOSE, Medica l Branch BUN, CREATININE, CA) VANCOMYCIN TROUGH 2020-12-09 19:02:00 Sandrita [facility] PHOSPHORUS 2020-12-09 09:58:00 Sandrita [facility] MAGNESIUM 2020-12-09 09:58:00 Ovshakir [facility] BASIC METABOLIC PANEL 2020-12-09 09:58:00 [facility] (NA, K, CL, CO2, GLUCOSE, Medica l Branch BUN, CREATININE, CA) CT ABDOMEN PELVIS W 2020-12-08 17:35:25 Lesley Jay [facility] CONTRAST [facility] PHOSPHORUS 2020-12-08 09:38:00 Ovshakir [facility] MAGNESIUM 2020-12-08 09:38:00 [facility] BASIC METABOLIC PANEL 2020-12-08 09:38:00 Sandrita [facility] (NA, K, CL, CO2, GLUCOSE, Medica l Branch BUN, CREATININE, CA) VANCOMYCIN TROUGH 2020-12-08 06:35:00 [facility] (TTE) 2020-12-07 18:35:00 GriseldaliaNasir [facility] COMPLETE [facility] MAGNESIUM 2020-12-07 09:59:00 [facility] BASIC METABOLIC PANEL 2020-12-07 09:59:00 [facility] (NA, K, CL, CO2, GLUCOSE, Medica l Branch BUN, CREATININE, CA) CBC WITH DIFF 2020-12-07 09:59:00 [facility] BASIC METABOLIC PANEL 2020-12-07 02:15:00 [facility] (NA, K, CL, CO2, GLUCOSE, Medica l Branch BUN, CREATININE, CA) MAGNESIUM 2020-12-06 15:50:00 [facility] BASIC METABOLIC PANEL 2020-12-06 15:50:00 [facility] (NA, K, CL, CO2, GLUCOSE, Medica l Branch BUN, CREATININE, CA) CBC WITH DIFF 2020-12-06 15:50:00 [facility] MAGNESIUM 2020-12-05 22:29:00 [facility] BASIC METABOLIC PANEL 2020-12-05 22:29:00 Lisandra Eagle [facility] (NA, K, CL, CO2, GLUCOSE, Medica l Branch BUN, CREATININE, CA) CT HEAD WO CONTRAST 2020-12-05 20:11:36 Lisandra Eagle [facility] POCT GLUCOSE(AGE >30DAYS) 2020-12-05 19:44:00 [facility] 2020-12-05 18:53:00 Lisandra Eagle [facility] URINE DRUG (IMMUNOASSAY) 2020-12-05 18:49:00 Lisandra Eagle [facility] Medical [facility] SCREEN URINALYSIS 2020-12-05 18:49:00 Lisandra Eagle [facility] URINE CULTURE 2020-12-05 18:49:00 Lisandra Eagle [facility] EXTRA TUBE LT. BLUE 2020-12-05 18:49:00 Lisandra Eagle [facility] XR CHEST 1 VW 2020-12-05 18:44:56 Lisandra Eagle [facility] COVID-19 (ID NOW RAPID 2020-12-05 18:39:00 Lisandra Eagle [facility] TESTING) [facility] [place] LAB ONLY COVID 2020-12-05 18:39:00 Lisandra Eagle [facility] INTERPRETATION [facility] BLOOD CULTURE SCREEN 2020-12-05 18:35:00 Lisandra [facility] L[facility] 2020-12-05 18:35:00 Lisandra Eagle [facility] MAGNESIUM 2020-12-05 18:35:00 Lisandra Eagle [facility] TROPONIN I 2020-12-05 18:35:00 Lisandra Eagle [facility] THYROID STIMULATING 2020-12-05 18:35:00 Lisandra Eagle [facility] HORMONE [facility] COMP. METABOLIC PANEL 2020-12-05 18:35:00 Lisandra Eagle [facility] ([id number]) [facility] CBC WITH DIFF 2020-12-05 18:35:00 Lisandra Eagle [facility] LACTIC ACID WHOLE BLOOD 2020-12-05 18:34:00 Lisandra Eagle [facility] AC PANEL 20 + LACTIC ACID 2020-12-05 18:34:00 [facility] ECG ROUTINE & RHYTHM 2020-12-05 18:24:21 Lisandra Eagle [facility] PHYSICIAN ORDERS 2020-09-09 05:01:00 Doctor Unassigned, [facility] CBC WITH DIFF 2020-08-09 17:14:00 Luisa, [facility] URINALYSIS 2020-08-09 17:14:00 Luisa [facility] RHEUMATOID FACTOR 2020-08-09 17:14:[address] [facility] C-REACTIVE PROTEIN 2020-08-09 17:14:00 Leigh Moran [facility] COMP. METABOLIC PANEL 2020-08-09 17:14:00 Leigh Moran [facility] ([id number]) [facility] SEDIMENTATION RATE 2020-08-09 17:14[facility]00 [facility]TI[facility]([place] 2020-08-09 17:14:00 Luisa [facility] ADC OR LEXX ONLY - RPR 2020-08-09 17:14:00 Leigh [facility] HIV 1/2 AG-AB WITH REFLEX 2020-08-09 17:14:00 Leigh Moran [facility] ASSIGNMENT OF BENEFITS 2020-08-09 16:41:17 Doctor Unassigned, Un [facility] BODY FLUID DIRECT COUNT 2020-07-14 20:10:00 Hansel Kennedy [facility] CSF CULTURE 2020-07-14 20:10:00 Hansel Kennedy [facility] CEREBROSPINAL FLUID 2020-07-14 20:09:00 Hansel Kennedy [facility] PROTEIN [facility] CEREBROSPINAL FLUID 2020-07-14 20:09:00 Hansel Kennedy [facility] GLUCOSE [facility] EXTRA TUBE CSF 2020-07-14 20:09:00 Hansel Kennedy [facility] MENINGITIS/ENCEPHALITIS 2020-07-14 20:09:00 Hansel Kennedy [facility] PANEL BY PCR [facility] POCT GLUCOSE (AUTOMATED) 2020-07-14 14:55:00 Christina Roque [facility] MAGNESIUM 2020-07-14 13:11:00 Hansel Kennedy [facility] PHOSPHORUS 2020-07-14 13:10:00 Tito brayden Tariq o [facility] XR CHEST 1 VW 2020-07-14 13:06:38 Hansel Kennedy [facility] URINALYSIS 2020-07-14 09:32:00 Bhaskar Reyna [facility] COVID-19 (ID NOW RAPID 2020-07-14 09:25:00 Bhaskar Reyna [facility] TESTING) Medical Branch C-REACTIVE PROTEIN 2020-07-14 01:10:00 Bhaskar Reyna [facility] HEPATIC FUNCTION PANEL 2020-07-14 01:10:00 Axel Bhaskar B [facility] ([id number]) (ALB,T.PRO,BILI Medical Branch T,BU/BC,ALT,AST,ALK PHOS) BASIC METABOLIC PANEL 2020-07-14 01:10:00 Bhaskar Reyna [facility] (NA, K, CL, CO2, GLUCOSE, Medica l Branch BUN, CREATININE, CA) SEDIMENTATION RATE 2020-07-14 01:10:00 Bhaskar Reyna [facility] CBC WITH DIFF 2020-07-14 01:10:00 Bhaskar Reyna [facility] AUTHORIZATION FOR RELEASE 2020-07-08 05:01:00 Doctor [place], [facility] [place] REFERRAL- 2020-07-07 05:01:00 Doctor [place], [facility] REQUEST/RESPONSE [place] CBC WITH DIFF 2020-07-07 03:16:00 Lisandra Eagle [facility] NOTICE OF PRIVACY 2020-07-06 23:35:30 Doctor [place], [facility] PRACTICES [place] CONSENT/REFUSAL FOR 2020-07-06 23:35:07 Doctor Ho [facility] DIAGNOSIS AND TREATMENT [facility] CT HEAD WO CONTRAST 2020-07-04 19:42:39 Lety Noriega [facility] LIPASE 2020-07-04 18:56:00 Lety Noriega [facility] COMP. METABOLIC PANEL 2020-07-04 18:56:00 Lety Noriega [facility] ([id number]) [facility] [place] CBC WITH DIFF 2020-07-04 18:56:00 Lety Noriega [facility] URINALYSIS 2020-07-04 18:56:00 [facility] CONSENT/REFUSAL FOR 2020-07-04 17:04:54 Doctor Unassigned, [facility] DIAGNOSIS AND TREATMENT [place] TROPONIN I 2020-06-27 16:14:00 [facility] MR BRAIN WO CONTRAST 2020-06-27 10:20:11 Jose Cintron [facility] COVID-19 (ID NOW RAPID 2020-06-26 22:32:00 Tung [facility] TESTING) [facility] CT ANGIOGRAM HEAD 2020-06-26 22:14:19 [facility] CT ANGIOGRAM NECK 2020-06-26 22:14:19 [facility] CT HEAD WO CONTRAST 2020-06-26 22:02:20 [facility] 2020-06-26 21:28:00 Tung [facility] XR CHEST 1 VW 2020-06-26 20:27:04 Tung [facility] TROPONIN I 2020-06-26 20:24:00 Tung [facility] HEPATIC FUNCTION PANEL 2020-06-26 20:24:00 Ruby, [facility] ([id number]) (ALB,T.PRO,BILI Medical Branch T,BU/BC,ALT,AST,ALK PHOS) BASIC METABOLIC PANEL 2020-06-26 20:24:00 Ruby, Sabrina [facility] (NA, K, CL, CO2, GLUCOSE, Medica l Branch BUN, CREATININE, CA) SEDIMENTATION RATE 2020-06-26 20:24:00 Sabrina Ruby [facility] CBC WITH DIFF 2020-06-26 20:24:00 [facility] RHYTHM 2020-06-26 20:16:57 Sabrina Ruby [facility] CONSENT/REFUSAL FOR 2020-06-26 20:02:52 Doctor Unassigned, [facility] DIAGNOSIS AND TREATMENT [place] COMP. METABOLIC PANEL 2020-06-01 09:54:00 Zenaida Rodrigez [facility] ([id number]) [facility] BASIC METABOLIC PANEL 2020-05-31 14:36:00 Cade Hernadez [facility] (NA, K, CL, CO2, GLUCOSE, Medica l Branch BUN, CREATININE, CA) CBC WITH DIFF 2020-05-31 12:26:00 [facility]BDOMEN PELVIS W WO 2020-05-30 20:49:43 Dash Guerrero [facility] BLOOD CULTURE SCREEN 2020-05-30 20:16:00 Dash Guerrero [facility] LACTIC ACID WHOLE BLOOD 2020-05-30 20:15:00 Dash Guerrero [facility] URINALYSIS 2020-05-30 20:14:[address] [facility] HEPATIC FUNCTION PANEL 2020-05-30 20:13:00 Dash Guerrero [facility] ([id number]) (ALB,T.PRO,BILI [facility] T,BU/BC,ALT,AST,ALK PHOS) BASIC METABOLIC PANEL 2020-05-30 20:13:00 Dash Guerrero [facility] (NA, K, CL, CO2, GLUCOSE, Medica l Branch BUN, CREATININE, CA) CBC WITH DIFF 2020-05-30 20:13:[address] [facility] PROTHROMBIN TIME / INR 2020-05-30 20:13:00 Dash Guerrero [facility] ACTIVATED PARTIAL 2020-05-30 20:13:00 Dash [facility] (ID NOW RAPID 2020-05-30 20:13:00 Dash Guerrero [facility] TESTING) Medical Branch LAB ONLY COVID 2020-05-30 20:13:00 Dash Gu[place]ro [place] [facility] [place] INTERPRETATION [facility] BLOOD CULTURE SCREEN 2020-05-30 20:09:00 Dash Guerrero [facility] [facility] CONSENT/REFUSAL FOR 2020-05-30 19:22:16 Doctor Unassigned, [facility] DIAGNOSIS AND TREATMENT [facility] URINALYSIS 2020-05-27 00:16:00 Umm Mares [facility] HEPATIC FUNCTION PANEL 2020-05-26 23:25:00 Umm Mares [facility] ([id number]) (ALB,T.PRO,BILI Medical Branch T,BU/BC,ALT,AST,ALK PHOS) BASIC METABOLIC PANEL 2020-05-26 23:25:00 Umm Mares [facility] (NA, K, CL, CO2, GLUCOSE, Medica l Branch BUN, CREATININE, CA) CBC WITH DIFF 2020-05-26 23:25:00 Umm Mares [facility] CONSENT/REFUSAL FOR 2020-05-26 22:59:39 Doctor Unassdudley, [facility] DIAGNOSIS AND TREATMENT [facility] URINALYSIS 2020-05-13 18:34:00 Dottie Troncoso [facility] CT ABDOMEN PELVIS W 2020-05-13 17:26:18 Dottie Troncoso [facility] CONTRAST [facility] Branch LIPASE 2020-05-13 16:47:00 Dottie Troncoso [facility] HEPATIC FUNCTION PANEL 2020-05-13 16:47:00 Dottie Troncoso [facility] ([id number]) (ALB,T.PRO,BILI Medical Branch T,BU/BC,ALT,AST,ALK PHOS) BASIC METABOLIC PANEL 2020-05-13 16:47:00 Dottie Troncoso [facility] (NA, K, CL, CO2, GLUCOSE, Medica l Branch BUN, CREATININE, CA) CBC WITH DIFF 2020-05-13 16:47:00 Dottie Troncoso [facility] NOTICE OF PRIVACY 2020-05-13 16:27:55 Doctor [facility] [place] CONSENT/REFUSAL FOR 2020-05-13 16:23:10 Doctor Georgia, [facility] DIAGNOSIS AND TREATMENT [place] [place] EXTERNAL PROVIDER RECORDS 2019-12-10 05:01:00 Doctor Georgia, [facility] US ABDOMEN LIMITED 2019-12-08 18:04:34 Lesley Bee [facility] XR CHEST 1 VW 2019-12-08 17:33:[address] [facility] CT ABDOMEN PELVIS WO 2019-12-08 16:24:35 Lesley Bee [facility] CONTRAST [facility] COMP. METABOLIC PANEL 2019-12-08 16:15:00 Lesley Bee [facility] ([id number]) Medical [place] CBC WITH DIFF 2019-12-08 16:15:[address] [facility] URINALYSIS 2019-12-08 16:13:[address] [facility] POCT TEST 2019-12-08 16:12:00 Lesley Bee [facility] NOTICE OF PRIVACY 2019-12-08 15:46:34 Doctor [place], [facility] [place] CONSENT/REFUSAL FOR 2019-12-08 15:46:19 Doctor [place], [facility] DIAGNOSIS AND TREATMENT [place] [place] POCT URINALYSIS AUTO 2019-12-08 15:09:00 Abhijit Galvin [facility] PHYSICIAN CERTIFICATION 2019-09-29 05:01:00 Doctor [place] U [facility] STATEMENT [facility] AGREEMENTS AUTHORIZATIONS 2019-03-28 06:01:00 Doctor [place], [facility] AND IRREVOCABLE [facility] ASSIGNMENTS (FORM 2000) Encounters Start End Encounter Admission Attending Care Care Encounter Source Date/Time Date/Time Type Type Clinicians Facility Department ID 2021-03-09 Outpatient Hernandez, STLMLC [facility] [id number] 13:01:40 [facility] [address] [facility] 2021-03-09 Outpatient Hernandez, STLMLC ST[facility] [id number] 13:01:30 [facility] [address] Beth - Osvaldo l Outpati ent Clinics 2020-12-12 Emergency [facility] [id number] Univers 22:28:34 ity of [facility] 2020-12-12 Emergency [facility] [id number] Univers 21:17:57 ity of [facility] 2020-12-12 Emergency [facility] [id number] Univers 20:44:10 ity of [facility] 2020-12-12 Emergency [facility] [id number] Univers 19:18:03 ity of [facility] 2020-12-12 Emergency [facility] [id number] Univers 13:38:38 ity of [facility] 2020-12-12 Emergency [facility] [id number] Univers 12:59:09 ity of [facility] 2020-12-12 Emergency [facility] [id number] Univers 10:04:40 ity of [facility] 2020-12-11 Emergency [facility] [id number] Univers 01:01:21 ity of [facility] 2021-03-08 2021-03-08 [facility] 1.2.840.114 [id number] Univers 00:00:00 00:00:00 Johnson VELASCO 350.1.13.10 it[place] [phone] Me dical NAL 092 Branch [facility] 2020-12-23 2020-12-23 Outpatient R [facility] [id number] Univers 00:00:00 00:00:00 ity of [facility] 2020-12-14 2020-12-14 Transition FILEMON Redman 1.2.840.114 [id number] Univers 00:00:00 00:00:00 of Care Josselin LEWIS 350.1.13.10 i ty of [place] [phone] [place] [address] Branch 2020-12-05 2020-12-12 Inpatient X SANDRITA [facility] [id number] Univers 13:25:00 15:45:00 AD ity of [facility] 2020-12-05 2020-12-12 [facility] Lisandra Eagle [facility] 1.2.840. 114 [id number] Univers 13:25:00 15:45:00 Encounter Sandrita Ad KRISTA 350.1.13.10 ity of [place].7.2.[place] [phone] [place] [address] Branch 2020-11-01 2020-11-01 Refsherron Lavon [facility] 1.2.840.114 [id number] Univers 00:00:00 00:00:00 [facility] 350.1.13.10 i ty of [place] 4.2.7.2.686 T emmysudha Camilo Bertram [phone] [place] [id number] Branch Office Building 2020-10-12 2020-10-12 Refsherron Fisher [facility] 1.2.840.114 [id number] Univers 00:00:00 00:00:00 Johnson eVlasco 350.1.13.10 it[place] of [place] Profess[place] [phone] Il dical nal 092 Branch Building 2020-10-07 2020-10-07 Pedigree Tracer Ny [facility] Main [facility] 1.2.8 40.114 [id number] Univers 10:29:15 10:44:15 Visit Anish Carrera 350.1.13.10 it[place] of [place] Profess[place] [phone] Il dical nal 353 Branch Building 2020-10-07 2020-10-07 Outpatient R [facility] [id number] Univers 10:30:00 10:30:00 [id number] ity of [facility] 2020-10-07 2020-10-07 Outpatient R DEBI [facility] [id number] Univers 10:30:00 10:30:00 ANISH mccall of [facility] 2020-09-15 2020-09-15 Outpatient R [facility] [id number] -[id number] Univers 10:00:00 10:00:00 [id number] ity of [facility] 2020-09-10 2020-09-10 Refill Lavon [facility] 1.2.840.114 [id number] Univers 00:00:00 00:00:00 Michael Eaton 350.1.13.10 i ty of [place] 4.2.7.2.686 T roxy Baez [id number] [address] Office Building 2020-09-09 2020-09-09 Orders Doctor CIPRIANO 1.2.840.114 [id number] Univers 00:00:00 00:00:00 Only Unassigned, KATIE 350.1.13.10 ity of [place] [facility] 4.2.7.2.686 [place] as [phone] [address] 2020-09-06 2020-09-06 Telephone CIPRIANO Machado 1.2.530.411 [id number] Univers 00:00:00 00:00:00 Empeartrizbharath WILSON 350.1.13.10 i ty of [facility] 4.2.7.2.686 [place] [phone] [address] 2020-08-13 2020-08-13 Refill Lavon [facility] 1.2.840.114 [id number] Univers 00:00:00 00:00:00 Michael Eaton 350.1.13.10 i ty of [place] 4.2.7.2.686 T roxy Baez [phone] [address] Office Building 2020-08-09 2020-08-09 Outpatient R [facility] [id number] Univers 12:00:00 12:00:00 [id number] ity [facility] 2020-08-09 2020-08-09 Outpatient R DEBI [facility] [id number] Univers 12:00:00 12:00:00 ANISH mccall [facility] 2020-08-09 2020-08-09 Pedigree Tracer Anni, Ny Lab Main [facility] 1.2.8 40.114 [id number] Univers 11:42:15 11:57:15 Visit Anish Carrera 350.1.13.10 it[place] of [place] [phone] Il dical nal 353 Branch Building 2020-08-09 2020-08-09 Orders Doctor CIPRIANO 1.2.840.114 [id number] Univers 00:00:00 00:00:00 Only Unassigned, KATIE 350.1.13.10 ity of [place] [facility] 4.2.7.2.686 [place] as [phone] [facility] 009 Branch 2020-07-13 2020-07-14 Emergency Aufderheide, Shi Melvin TRAUMA 1.2.840.114 [id number] Univers 15:14:00 19:27:00 Christina Roque [place] 350.1.13.10 it[place] [phone] [facility] 014 Branch 2020-07-13 2020-07-13 Office Castillo [facility] 1.2.840.114 [id number] Univers 09:44:58 11:19:02 Visit Johnson Velasco 350.1.13.10 ity of [place] [phone] Il dical nal 092 Branch [facility] 2020-07-13 2020-07-13 Outpatient JOHNSON FISHER [facility] [id number] Univers 09:40:00 09:40:00 JOHNSON FISHER [id number] [facility] 2020-07-13 2020-07-13 Outpatient JOHNSON OSPINA [facility] [id number] Univers 09:40:00 09:40:00 [facility] 2020-07-13 2020-07-13 Letter CIPRIANO Hernandez 1.2.840.114 [id number] Univers 00:00:00 00:00:00 (Out) Fercho WILSON 350.1.13.10 ity of [facility] 4.2.7.2.686 [place] [phone] [facility] 043 Branch 2020-07-08 2020-07-08 Orders Doctor COTA 1.2.840.114 [id number] Univers 00:00:00 00:00:00 Only Unassigned, KATIE 350.1.13.10 ity of [place] [facility] 4.2.7.2.686 [place] [phone] [facility] 009 [place] 2020-07-07 2020-07-07 Orders Doctor CIPRIANO 1.2.840.114 [id number] Univers 00:00:00 00:00:00 Only Unassigned, KATIE 350.1.13.10 ity of [place] [facility] 4.2.7.2.686 [place] [phone] [facility] 009 [place] 2020-07-07 2020-07-07 [facility] 1.2.447.000 [id number] Univers 00:00:00 00:00:00 Angy PRIMARY 350.1.13.10 it y of [facility] 4.2.7.2.[place] [phone] [facility] 086 [place] 2020-07-06 2020-07-06 Emergency formerly [facility] 1.2.763.102 [id number] Univers 18:48:00 23:59:00 Lisandra Velasco 350.1.13.10 ity of [place] [phone] [facility] 084 [place] 2020-07-04 2020-07-04 [facility] 1.2.840.114 [id number] Univers 12:16:00 18:32:00 Lety Velasco 350.1.13.10 ity of [place] [phone] [facility] 084 [place] 2020-06-26 2020-06-28 Emergency RubySabrina garcia 1.2.840 .114 [id number] Univers 15:08:00 18:15:00 Caio Hernandez 350.1.13.10 ity of [facility] 4.2.7.2.686 [place] [phone] [facility] 098 [place] 2020-06-28 2020-06-28 [facility] 1.2.840.114 [id number] Univers 00:00:00 00:00:00 Johnson Velasco 350.1.13.10 it[place] of [place] [facility] [phone] Il dical [facility] 2020-06-22 2020-06-22 Outpatient STLMLC [facility] [id number] [facility] 00:00:00 00:00:00 Beth [facility]illy [facility] 2020-05-30 2020-06-02 Emergency Dash Guerrero [facility] 1.2.840. 114 [id number] Univers 14:32:00 11:50:00 Ad Remy 350.1.13.10 ity of [place] Hernadez 4.2.7.2.686 [facility] [phone] [address] 2020-05-31 2020-05-31 Outpatient [facility] [id number] Univers 09:45:00 09:45:00 [facility] [id number] ity [facility] 2020-05-31 2020-05-31 [facility] [id number] [facility] 09:45:00 09:45:00 [facility] ity of [facility] 2020-05-26 2020-05-26 [facility] 1.2.539.439 [id number] Univers 18:10:00 21:41:00 Umm Velasco 350.1.13.10 ity of [place] 4.2.7.2.686 [facility] [place] [phone] [facility] 084 [place] 2020-05-26 2020-05-26 Orders Doctor CIPRIANO 1.2.840.114 [id number] Univers 00:00:00 00:00:00 Only Unassigned, KATIE 350.1.13.10 ity of [place] [facility] 4.2.7.2.686 [place] [phone] [facility] 009 Branch 2020-05-13 2020-05-13 Emergency [facility] 1.2.840.114 [id number] Univers 11:30:00 17:34:00 Dottie Velasco 350.1.13.10 it[place] of [place] [phone] [facility] 084 Branch 2020-05-13 2020-05-13 Urgent Provider, [facility] 1.2.840.114 [id number] Univers 10:10:06 11:10:27 Care Sarah Orantes [facility] 350.1.13.10 ity of [place] 4.2.7.2.686 [place] Professio [phone] [facility] 044 [place] Office Building One 2020-05-13 2020-05-13 Outpatient R [facility] [id number] Univers 11:00:00 11:00:00 [id number] ity [facility] 2020-05-13 2020-05-13 [facility] [id number] Univers 11:00:00 11:00:00 SARAH ity [facility] 2020-05-13 2020-05-13 Orders Doctor COTA 1.2.840.114 [id number] Univers 00:00:00 00:00:00 Only Unassigned, KATIE 350.1.13.10 ity of [facility] 4.2.7.2.686 [place] [phone] [facility] 009 [place] 2020-04-19 2020-04-19 [facility] Castillo, [facility] 1.2.840.114 [id number] Univers 00:00:00 00:00:00 Johnson Velasco 350.1.13.10 it[place] of [place] [phone] Il dical nal 092 [facility] 2020-04-09 2020-04-09 Refill Castillo, [facility] 1.2.840.114 [id number] Univers 00:00:00 00:00:00 Johnson Velasco 350.1.13.10 it[place] of [place] [phone] Il dical nal 092 [facility] 2020-03-23 2020-03-23 [facility] 1.2.840.114 [id number] Univers 09:29:15 10:11:33 Visit Johnson Velasco 350.1.13.10 ity of [place].2.[place] [phone] Il dical nal 092 [facility] 2020-03-23 2020-03-23 Outpatient JOHNSON OSPINA [facility] [id number] Univers 09:20:00 09:20:00 JOHNSON FISHER [id number] ity [facility] 2020-03-23 2020-03-23 Outpatient Krystal FISHER JOHNSON [facility] [id number] Univers 09:20:00 09:20:00 JOHNSON FISHER ity [facility] 2020-03-15 2020-03-15 [facility] 1.2.840.114 [id number] Univers 00:00:00 00:00:00 Johnson Velasco 350.1.13.10 it[place] of [place] [phone] [facility] 092 [facility] 2019-12-10 2019-12-10 Orders Doctor CIPRIANO 1.2.840.114 [id number] Univers 00:00:00 00:00:00 Only Unassigned, KATIE 350.1.13.10 ity of [place] [facility] 4.2.7.2.686 [place] [phone] [facility] 009 [place] 2019-12-09 2019-12-09 Case [facility], [facility] 1.2.840.114 [id number] Univers 00:00:00 00:00:00 Management Kari Velasco 350.1.13.10 it[place] of [place].2.[place] [phone] [facility] 204 [facility] 2019-12-08 2019-12-08 Emergency Bee, [facility] 1.2.020.442 [id number] Univers 11:01:00 14:17:00 Lesley Velasco 350.1.13.10 i ty of [place].2.[place] [phone] [facility] 084 [place] 2019-12-08 2019-12-08 Office Juan M [facility] 1.2.840.114 [id number] Univers 09:53:04 10:44:29 Visit [facility] Krista 350.1.13.10 i ty of [place] [phone] [facility] 204 [facility] 2019-12-08 2019-12-08 Outpatient R [facility] [id number]-20 Univers 10:15:00 10:15:00 [facility] [id number] ity [facility] 2019-12-08 2019-12-08 Outpatient R [facility] [id number] Univers 10:15:00 10:15:00 [facility] ity [facility] 2019-12-08 2019-12-08 Orders Doctor CIPRIANO 1.2.840.114 [id number] Univers 00:00:00 00:00:00 Only Unassigned, KATIE 350.1.13.10 ity of [place] [facility] 4.2.7.2.686 [place] [phone] [address] 2019-12-06 2019-12-06 [facility] 1.2.840.114 [id number] Univers 00:00:00 00:00:00 Johnson Velasco 350.1.13.10 it[place] of [place] [phone] [facility] 092 [facility] 2019-10-17 2019-10-17 [facility] 1.2.840.114 [id number] Univers 00:00:00 00:00:00 Johnson Velasco 350.1.13.10 it[place] of [place]2.[place] [phone] [facility] 092 [facility] 2019-09-29 2019-09-29 Orders Doctor CIPRIANO 1.2.840.114 [id number] Univers 00:00:00 00:00:00 Only Unassigned, KATIE 350.1.13.10 ity of [place] [facility] 4.2.7.2.686 [place] [phone] [address] 2019-09-23 2019-09-23 [facility] 1.2.840.114 [id number] Univers 00:00:00 00:00:00 Johnson Velasco 350.1.13.10 it[place] of [place] [phone] Il dicva nal [address] [place] [address] 2019-08-07 2019-08-07 [facility] 1.2.840.114 [id number] Univers 00:00:00 00:00:00 Johnson Velasco 350.1.13.10 it[place] of [place] [phone] [address] 2019-05-21 2019-05-21 [facility] 1.2.840.114 [id number] Univers 00:00:00 00:00:00 Johnson Velasco 350.1.13.10 it[place] of [place].2.[place] [phone] [address] 2019-04-24 2019-04-24 [facility] 1.2.840.114 [id number] Univers 00:00:00 00:00:00 Johnson Velasco 350.1.13.10 ity of [place]2.[place] [phone] [address] 2019-04-17 2019-04-17 [facility] 1.2.840.114 [id number] Univers 00:00:00 00:00:00 Johnson Velasco 350.1.13.10 ity of [place].2.[place] [phone] [facility] nal [address] [place] [address] 2019-04-07 2019-04-07 [facility] 1.2.840.114 [id number] Univers 00:00:00 00:00:00 Johnson Velasco 350.1.13.10 ity of [place]2.[place] [phone] [address] 2019-03-28 2019-03-28 Pedigree Tracer 2, Adc Lab [facility] 1.2.840.114 [id number] Univers 11:02:20 11:17:20 Visit Johnson Fisher 350.1.13 .10 ity of [place].2.[place] [phone] Il dical nal 353 [facility] 2019-03-28 2019-03-28 Office Castillo [facility] 1.2.840.114 [id number] Univers 09:56:36 10:59:16 Visit Johnson Velasco 350.1.13.10 ity of [place].2.[place] [phone] Il dical nal 092 [facility] 2019-03-28 2019-03-28 Orders Doctor CIPRIANO 1.2.840.114 [id number] Univers 00:00:00 00:00:00 Only Unassigned, KATIE 350.1.13.10 ity of [place] [facility] 4.2.7.2.686 [place] [phone] [address] 2018-11-05 2018-11-05 Emergency E [facility] 7500 [facility] 11:03:00 11:03:00 l [facility] 2017-08-24 2017-08-24 Outpatient Trish Phillips [id number] [facility] 08:45:00 08:45:00 [facility] 2017-08-01 2017-08-01 Outpatient Trish Phillips 14 [id number] [facility] 10:15:00 10:15:00 [facility] Clinics Results Test Description Test Time Test Comments Results Result Comments Source BASIC METABOLIC PANEL (NA, K, CL, CO2, GLUCOSE, BUN, 2020-11 11:05:50 CREATININE, CA) Test Item Value Reference Range Interpretation Comme nts NA (test code = 5626175454) 133 mmol/L 135-145 L K (test code = 9648405095) 5.0 mmol/L 3.5-5.0 CL (test code = 3833902366) 105 mmol/L 98-108 CO2 TOTAL (test code = 6927043339) 24 mmol/L 23-31 AGAP (test code = 4553303204) 2-16 BUN (test code = 4132123949) 9 mg/dL 7-23 GLUCOSE (test code = 2935017224) 93 mg/dL 70-110 CREATININE (test code = 0.57 mg/dL 0.50-1.04 7156223467) CALCIUM (test code = 6071523416) 9.8 mg/dL 8.6-10.6 eGFR (test code = 3574751858) mL/min/1.73m2 ANTHONY (test code = ANTHONY) Association [...] tests). Lab Interpretation (test code = Abnormal 60041-8) [facility] Test Item Value Reference Range Interpretation Comments MAGNESIUM (test code = 9767597417) 2.3 mg/dL 1.7-2.4 Lab Interpretation (test code = Normal 63388-9) [facility] 11:05:30 Test Item Value Reference Range Interpretation Comments PHOSPHORUS (test code = 6242013335) 4.1 mg/dL 2.5-5.0 Lab Interpretation (test code = Normal 69337-9) [facility], SERUM OR [id number] 17:26:02 Test Item Value Reference Range Interpretation Comments OSMOLALITY (test code = See_Comment [Au tomated message] 7077819264) The system [employer] generated this result transmitted ref erence range: 278 - 30 5 mOsm/kg. The re ference range was not u sed to interpret this result as normal/abnor mal. Lab Interpretation (test Normal code = 30791-0) [facility] Random [id number] 15:46:31 Test Item Value Reference Range Interpretation Comments VANCO RANDOM (test code = 8.9 ug/mL 0015678141) [facility]OLIC PAN[facility] (NA, K, CL, CO2, GLUCOSE, BUN, CREATININE, CA)2020-12-11 10:02:40 Test Item Value Reference Range Interpretation Comments NA (test code = 135 mmol/L 135-145 2068138627) K (test code = 4.7 mmol/L 3.5-5.0 1608177862) CL (test code = 107 mmol/L 98-108 4894357822) CO2 TOTAL (test code 24 mmol/L 23-31 = 1204824173) AGAP (test code = 2-16 7494628228) BUN (test code = 9 mg/dL 7-23 2091997386) GLUCOSE (test code = 98 mg/dL 70-110 8758897284) CREATININE (test code 0.62 mg/dL 0.50-1.04 = 9849753345) CALCIUM (test code = 9.5 mg/dL 8.6-10.6 6600814841) eGFR (test code = mL/min/1.73m2 5446523033) ANTHONY (test code = ANTHONY) Association of [...] or urine or abnormalities in imaging tests). [facility] WITH [id number] 09:45:31 Test Item Value Reference Range Interpretation Comments WBC (test code = See_Comment [Automated 0590-2) message] The sy stem which generated this result transmitted reference range : 4.30 - 11.10 10*3/?L. The reference range was not used to interpret this result as normal/abnormal . RBC (test code = See_Comment L [Automated 299-8) message] The sy stem which generated this [...] (test code = 55.5 fL 39.0-49.9 H 80206-5) RDW-CV (test code = 15.6 % 12.0-15.5 H 788-0) PLT (test code = See_Comment [Automated 777-3) message] The sy stem which generated this result transmitted reference range : 166 - 358 10*3/ ?L. The reference r miky was not used to interpret this result as normal/abnormal . MPV (test code = 11.5 fL 9.5-12.9 52005-3) NRBC/100 WBC (test See_Comment [Automat ed code = 9252049369) message] The system which generated this result transmitted reference range : 0.0 - 10.0 /100 WBCs. The refer ence range was not u sed to interpret th is result as normal/abnormal . NRBC x10^3 (test code See_Comment [Auto mated = 4077733343) message] The s ystem which generated this result transmitted reference range : 10*3/?L. The reference range was not used to interpret this result as normal/abnormal . GRAN MAT (NEUT) % 44.2 % (test code = 770-8) IMM GRAN % (test code 5.40 % = 4438298095) LYMPH % (test code = 35.6 % 736-9) MONO % (test code = 14.1 % 5905-5) EOS % (test code = 0.3 % 713-8) BASO % (test code = 0.4 % 706-2) GRAN MAT x10^3(ANC) 2.99 10*3/uL 1.88-7.09 (test code = 4733431982) IMM GRAN x10^3 (test 0.37 10*3/uL 0.00-0.06 H code = 0512172178) LYMPH x10^3 (test code 2.42 10*3/uL 1.32-3.29 = 731-0) MONO x10^3 (test code 0.96 10*3/uL 0.33-0.92 H = 742-7) EOS x10^3 (test code = <0.03 0.03-0.39 L 711-2) BASO x10^3 (test code 0.03 10*3/uL 0.01-0.07 = 704-7) Lab Interpretation Abnormal (test code = 36846-2) [facility]24 Test Item Value Reference Range Interpretation Comments MAGNESIUM (test code = 9013833475) 2.3 mg/dL 1.7-2.4 Lab Interpretation (test code = Normal 59732-6) [facility] 09[facility]37:04 Test Item Value Reference Range Interpretation Comments PHOSPHORUS (test code = 9000237101) 2.8 mg/dL 2.5-5.0 Lab Interpretation (test code = Normal 69444-0) [facility] [id number] 09:36:44 Test Item Value Reference Range Interpretation Comments URIC ACID (test code = 8239529152) 3.2 mg/dL 2.9-6.0 Lab Interpretation (test code = Normal 28322-9) [facility] (NA, K, CL, CO2, GLUCOSE, BUN, CREATININE, CA)2020-12-10 20:08:36 Test Item Value Reference Range Interpretation Comments NA (test code = 126 mmol/L 135-145 L 1181200647) K (test code = 3.7 mmol/L 3.5-5.0 1605254912) CL (test code = 102 mmol/L 98-108 4329585742) CO2 TOTAL (test code = 21 mmol/L 23-31 L 9652891600) AGAP (test code = 2-16 7933421065) BUN (test code = 9 mg/dL 7-23 7604032231) GLUCOSE (test code = 116 mg/dL 70-110 H 1002992656) CREATININE (test code = 0.72 mg/dL 0.50-1.04 9255146796) CALCIUM (test code = 8.9 mg/dL 8.6-10.6 7464427841) eGFR (test code = mL/min/1.73m2 4727275171) ANTHONY (test code = ANTHONY) Association of [...] tests). Lab Interpretation Abnormal (test code = 56716-7) [facility] [id number] 20:01:33 Test Item Value Reference Range Interpretation Comments Blood Culture-Aerobic No organisms No growth Previo us (test code = 81895-4) isolated prelim inary verified result was Culture [...] Culture-Anaerobic isolated preliminar y (test code = 25236-2) verifi ed result was Culture In Progress [...] CDT Lab Interpretation Normal (test code = 20217-8) [facility] [id number] 20:01:33 Test Item Value Reference Range Interpretation Comments Blood Culture-Aerobic No organisms No growth Previo us (test code = 07235-5) isolated prelim inary verified result was Culture [...] Culture-Anaerobic isolated preliminar y (test code = 29222-0) verifi ed result was Culture In Progress [...] CDT Lab Interpretation Normal (test code = 24389-5) [facility] 19:00:05 Test Item Value Reference Range Interpretation Comments PHOSPHORUS (test code = 6540130665) 2.5 mg/dL 2.5-5.0 Lab Interpretation (test code = Normal 96017-0) [facility] [id number] 18:49:57 Test Item Value Reference Range Interpretation [...] (test code = 52.4 fL 39.0-49.9 H 67184-6) RDW-CV (test code = 15.2 % 12.0-15.5 788-0) PLT (test code = See_Comment L [Automated 777-3) message] The sy stem which generated this result transmitted reference range : 166 - 358 10*3/ ?L. The reference r miky was not used to interpret this result as normal/abnormal . MPV (test code = 10.8 fL 9.5-12.9 53157-0) NRBC/100 WBC (test See_Comment [Automat ed code = 1827731402) message] The system which generated this result transmitted reference range : 0.0 - 10.0 /100 WBCs. The refer ence range was not u sed to interpret th is result as normal/abnormal . NRBC x10^3 (test code See_Comment [Auto mated = 3356310690) message] The s ystem which generated this result transmitted reference range : 10*3/?L. The reference range was not used to interpret this result as normal/abnormal . GRAN MAT (NEUT) % 47.2 % (test code = 770-8) IMM GRAN % (test code 5.80 % = 7096810235) LYMPH % (test code = 29.2 % 736-9) MONO % (test code = 17.1 % 5905-5) EOS % (test code = 0.4 % 713-8) BASO % (test code = 0.3 % 706-2) GRAN MAT x10^3(ANC) 3.14 10*3/uL 1.88-7.09 (test code = 4652016544) IMM GRAN x10^3 (test 0.39 10*3/uL 0.00-0.06 H code = 9484527704) LYMPH x10^3 (test code 1.95 10*3/uL 1.32-3.29 = 731-0) MONO x10^3 (test code 1.14 10*3/uL 0.33-0.92 H = 742-7) EOS x10^3 (test code = 0.03 10*3/uL 0.03-0.39 711-2) BASO x10^3 (test code <0.03 0.01-0.07 = 704-7) POLYCHROMASIA (test 2+ See_Comment [Automa karly code = 28545-9) message] The system which generated this result transmitted reference range : 2+. The referen ce range was not u sed to interpret th is result as normal/abnormal . BANDS (test code = Increased A 6661151422) Lab Interpretation Abnormal (test code = 11146-3) [facility] - Draw random trough at [id number] 16:37:29 Test Item Value Reference Range Interpretation Comments VANCO TROUGH (test code 19.4 ug/mL 10.0-20.0 = 0020212349) ANTHONY (test code = ANTHONY) Toxic Range: ?>20 ug/mL 15-20 ug/mL is recommended for severe infection or when Vancomycin RAHEEM is greater than or equal to 2. Lab Interpretation (test Normal code = 91029-2) [facility]29 11:49:21 Test Item Value Reference Range Interpretation Comments MAGNESIUM (test code = 5433379032) 2.1 mg/dL 1.7-2.4 Lab Interpretation (test code = Normal 93353-8) [facility]IC [facility] (NA, K, CL, CO2, GLUCOSE, BUN, CREATININE, CA)2020-12-10 11:49:05 Test Item Value Reference Range Interpretation Comments NA (test code = 129 mmol/L 135-145 L 4996506182) K (test code = 3.0 mmol/L 3.5-5.0 L 8536558957) CL (test code = 103 mmol/L 98-108 8505601113) CO2 TOTAL (test code = 25 mmol/L 23-31 4546024956) AGAP (test code = 2-16 L 9947044812) BUN (test code = 10 mg/dL 7-23 9200113230) GLUCOSE (test code = 123 mg/dL 70-110 H 4077871217) CREATININE (test code = 0.84 mg/dL 0.50-1.04 2722785626) CALCIUM (test code = 8.9 mg/dL 8.6-10.6 6697779561) eGFR (test code = mL/min/1.73m2 0311827294) ATNHONY (test code = ANTHONY) Association of Glomerular [...] tests). Lab Interpretation Abnormal (test code = 54716-2) [facility]21[facility]29 11:48:59 Test Item Value Reference Range Interpretation Comments PHOSPHORUS (test code = 5032678653) 1.0 mg/dL 2.5-5.0 L Lab Interpretation (test code = Abnormal 58206-2) [facility] (NA, K, CL, CO2, GLUCOSE, BUN, CREATININE, CA)2020-12-10 02:21:51 Test Item Value Reference Range Interpretation Comments NA (test code = 130 mmol/L 135-145 L 1672245979) K (test code = 3.6 mmol/L 3.5-5.0 2097759963) CL (test code = 106 mmol/L 98-108 9485814061) CO2 TOTAL (test code = 21 mmol/L 23-31 L 3141161247) AGAP (test code = 2-16 3048121127) BUN (test code = 9 mg/dL 7-23 5847361765) GLUCOSE (test code = 142 mg/dL 70-110 H 2243296243) CREATININE (test code = 0.59 mg/dL 0.50-1.04 7138135112) CALCIUM (test code = 8.4 mg/dL 8.6-10.6 L 8050236773) eGFR (test code = mL/min/1.73m2 2282419080) ANTHONY (test code = ANTHONY) Association of [...] tests). Lab Interpretation Abnormal (test code = 13460-7) [facility] - Draw no more than 60 minutes before the 1330 dose.2020-12-09 20:29:37 Test Item Value Reference Range Interpretation Comments VANCO TROUGH (test code 20.9 ug/mL 10.0-20.0 H = 3576537362) ANTHONY (test code = ANTHONY) Toxic Range: ?>20 ug/mL 15-20 ug/mL is recommended for severe infection or when Vancomycin RAHEEM is greater than or equal to 2. Lab Interpretation (test Abnormal code = 15019-0) [facility] (NA, K, CL, CO2, GLUCOSE, BUN, CREATININE, CA)2020-12-09 11:48:35 Test Item Value Reference Range Interpretation Comments NA (test code = 129 mmol/L 135-145 L 8049503863) K (test code = 2.8 mmol/L 3.5-5.0 LL 6255201926) CL (test code = 104 mmol/L 98-108 9884126694) CO2 TOTAL (test code = 20 mmol/L 23-31 L 8521862408) AGAP (test code = 2-16 8140954446) BUN (test code = 10 mg/dL 7-23 5031208655) GLUCOSE (test code = 120 mg/dL 70-110 H 6917594285) CREATININE (test code = 0.68 mg/dL 0.50-1.04 3871331773) CALCIUM (test code = 7.9 mg/dL 8.6-10.6 L 7113218905) eGFR (test code = mL/min/1.73m2 9462154330) ANTHONY (test code = ANTHONY) Association of [...] tests). Lab Interpretation Abnormal (test code = 50217-1) [facility]2021-[facility]-28 11:47:08 Test Item Value Reference Range Interpretation Comments MAGNESIUM (test code = 9486366553) 2.2 mg/dL 1.7-2.4 Lab Interpretation (test code = Normal 10677-5) [facility]21[facility]28 11:46:48 Test Item Value Reference Range Interpretation Comments PHOSPHORUS (test code = 6469215832) 2.4 mg/dL 2.5-5.0 L Lab Interpretation (test code = Abnormal 00641-4) [facility] (NA, K, CL, CO2, GLUCOSE, BUN, CREATININE, CA)2020-12-08 12:06:15 Test Item Value Reference Range Interpretation Comments NA (test code = 130 mmol/L 135-145 L 5408772586) K (test code = 2.8 mmol/L 3.5-5.0 LL 9502646711) CL (test code = 104 mmol/L 98-108 5497904287) CO2 TOTAL (test code = 19 mmol/L 23-31 L 2606254118) AGAP (test code = 2-16 3198620886) BUN (test code = 9 mg/dL 7-23 4098027550) GLUCOSE (test code = 114 mg/dL 70-110 H 7172224854) CREATININE (test code = 0.72 mg/dL 0.50-1.04 0417768136) CALCIUM (test code = 7.9 mg/dL 8.6-10.6 L 8930436821) eGFR (test code = mL/min/1.73m2 4324736622) ANTHONY (test code = ANTHONY) Association of [...] tests). Lab Interpretation Abnormal (test code = 63547-2) [facility]2021-10-27 11:58:12 Test Item Value Reference Range Interpretation Comments MAGNESIUM (test code = 4034243475) 1.9 mg/dL 1.7-2.4 Lab Interpretation (test code = Normal 40952-2) [facility]21[facility]27 11:57:52 Test Item Value Reference Range Interpretation Comments PHOSPHORUS (test code = 0068956549) 2.7 mg/dL 2.5-5.0 Lab Interpretation (test code = Normal 11543-5) [facility] - Draw no more than 60 minutes before the 0130 dose.2020-12-08 07:49:28 Test Item Value Reference Range Interpretation Comments VANCO TROUGH (test code 18.4 ug/mL 10.0-20.0 = 6757284138) ANTHONY (test code = ANTHONY) Toxic Range: ?>20 ug/mL 15-20 ug/mL is recommended for severe infection or when Vancomycin RAHEEM is greater than or equal to 2. Lab Interpretation (test Normal code = 78546-3) [facility] WITH [id number] 13:32:28 Test Item Value Reference Range Interpretation Comments WBC (test code = See_Comment [Automated 6690-2) message] The sy stem which generated this result transmitted reference range : 4.30 - 11.10 10*3/?L. The reference range was not used to interpret this result as normal/abnormal . RBC (test code = See_Comment L [Automated 229-8) message] The sy stem which generated this [...] (test code = 50.9 fL 39.0-49.9 H 20002-4) RDW-CV (test code = 15.0 % 12.0-15.5 788-0) PLT (test code = See_Comment [Automated 777-3) message] The sy stem which generated this result transmitted reference range : 166 - 358 10*3/ ?L. The reference r miky was not used to interpret this result as normal/abnormal . MPV (test code = 11.3 fL 9.5-12.9 15551-6) NRBC/100 WBC (test See_Comment [Automat ed code = 2201078805) message] The system which generated this result transmitted reference range : 0.0 - 10.0 /100 WBCs. The refer ence range was not u sed to interpret th is result as normal/abnormal . NRBC x10^3 (test code See_Comment [Auto mated = 3561466234) message] The s ystem which generated this result transmitted reference range : 10*3/?L. The reference range was not used to interpret this result as normal/abnormal . GRAN MAT (NEUT) % 57.6 % (test code = 770-8) IMM GRAN % (test code 4.60 % = 0054762217) LYMPH % (test code = 27.4 % 736-9) MONO % (test code = 9.9 % 5905-5) EOS % (test code = 0.2 % 713-8) BASO % (test code = 0.3 % 706-2) GRAN MAT x10^3(ANC) 3.79 10*3/uL 1.88-7.09 (test code = 3828978932) IMM GRAN x10^3 (test 0.30 10*3/uL 0.00-0.06 H code = 7659449514) LYMPH x10^3 (test code 1.80 10*3/uL 1.32-3.29 = 731-0) MONO x10^3 (test code 0.65 10*3/uL 0.33-0.92 = 742-7) EOS x10^3 (test code = <0.03 0.03-0.39 L 711-2) BASO x10^3 (test code <0.03 0.01-0.07 = 704-7) SCHISTOCYTES (test 1+ A code = 800-3) BANDS (test code = Increased A 4090514517) Lab Interpretation Abnormal (test code = 04928-9) [facility] 11:15:12 Test Item Value Reference Range Interpretation Comments MAGNESIUM (test code = 5816068979) 2.1 mg/dL 1.7-2.4 Lab Interpretation (test code = Normal 90491-9) [facility] (NA, K, CL, CO2, GLUCOSE, BUN, CREATININE, CA)2020-12-07 11:15:11 Test Item Value Reference Range Interpretation Comments NA (test code = 133 mmol/L 135-145 L 5186059065) K (test code = 3.2 mmol/L 3.5-5.0 L 5332264790) CL (test code = 106 mmol/L 98-108 7573521253) CO2 TOTAL (test code = 18 mmol/L 23-31 L 3090471178) AGAP (test code = 2-16 3065986795) BUN (test code = 9 mg/dL 7-23 7801103673) GLUCOSE (test code = 106 mg/dL 70-110 0302851234) CREATININE (test code = 0.64 mg/dL 0.50-1.04 8275336990) CALCIUM (test code = 8.2 mg/dL 8.6-10.6 L 1988756232) eGFR (test code = mL/min/1.73m2 2463672321) ANTHONY (test code = ANTHONY) Association of [...] tests). Lab Interpretation Abnormal (test code = 99216-6) [facility] METABOLIC PANEL (NA, K, CL, CO2, GLUCOSE, BUN, CREATININE, CA)2020-12-07 03:01:05 Test Item Value Reference Range Interpretation Comments NA (test code = 130 mmol/L 135-145 L 3714130459) K (test code = 3.4 mmol/L 3.5-5.0 L 3704615205) CL (test code = 105 mmol/L 98-108 9110686502) CO2 TOTAL (test code = 20 mmol/L 23-31 L 4758876996) AGAP (test code = 2-16 1810553946) BUN (test code = 10 mg/dL 7-23 7533955987) GLUCOSE (test code = 117 mg/dL 70-110 H 2170374951) CREATININE (test code = 0.69 mg/dL 0.50-1.04 2187230789) CALCIUM (test code = 7.9 mg/dL 8.6-10.6 L 0252145411) eGFR (test code = mL/min/1.73m2 6799258479) ANTHONY (test code = ANTHONY) Association of [...] tests). Lab Interpretation Abnormal (test code = 08449-3) [facility] Metabolic Panel (NA, K, CL, CO2, GLUCOSE, BUN, CREATININE, CA)2020-12-06 17:09:25 Test Item Value Reference Range Interpretation Comments NA (test code = 126 mmol/L 135-145 L 4749431506) K (test code = 2.9 mmol/L 3.5-5.0 LL 2438541117) CL (test code = 104 mmol/L 98-108 2591015516) CO2 TOTAL (test code = 13 mmol/L 23-31 L 4323123147) AGAP (test code = 2-16 3123538165) BUN (test code = 11 mg/dL 7-23 1000508369) GLUCOSE (test code = 147 mg/dL 70-110 H 3747828518) CREATININE (test code = 0.80 mg/dL 0.50-1.04 8247525372) CALCIUM (test code = 7.9 mg/dL 8.6-10.6 L 3378018568) eGFR (test code = mL/min/1.73m2 8712810546) ANTHONY (test code = ANTHONY) Association of [...] tests). Lab Interpretation Abnormal (test code = 57980-5) [facility]Magn[facility] [id number] 17:05:09 Test Item Value Reference Range Interpretation Comments MAGNESIUM (test code = 2474107607) 2.3 mg/dL 1.7-2.4 Lab Interpretation (test code = Normal 58318-7) [facility] with [id number] 16:52:56 Test Item Value Reference Range Interpretation Comments WBC (test code = See_Comment [Automated 4873-2) message] The sy stem which generated this result transmitted reference range : 4.30 - 11.10 10*3/?L. The reference range was not used to interpret this result as normal/abnormal . RBC (test code = See_Comment L [Automated 563-0) message] The sy stem which generated this [...] (test code = 50.9 fL 39.0-49.9 H 58936-7) RDW-CV (test code = 15.0 % 12.0-15.5 788-0) PLT (test code = See_Comment [Automated 777-3) message] The sy stem which generated this result transmitted reference range : 166 - 358 10*3/ ?L. The reference r miky was not used to interpret this result as normal/abnormal . MPV (test code = 11.4 fL 9.5-12.9 53280-8) NRBC/100 WBC (test See_Comment [Automat ed code = 2721231386) message] The system which generated this result transmitted reference range : 0.0 - 10.0 /100 WBCs. The refer ence range was not u sed to interpret th is result as normal/abnormal . NRBC x10^3 (test code <0.01 See_Comment [Auto mated = 4924530501) message] The s ystem which generated this result transmitted reference range : 10*3/?L. The reference range was not used to interpret this result as normal/abnormal . GRAN MAT (NEUT) % 53.9 % (test code = 770-8) IMM GRAN % (test code 3.10 % = 9308545641) LYMPH % (test code = 30.8 % 736-9) MONO % (test code = 11.3 % 5905-5) EOS % (test code = 0.3 % 713-8) BASO % (test code = 0.6 % 706-2) GRAN MAT x10^3(ANC) 3.48 10*3/uL 1.88-7.09 (test code = 3343757553) IMM GRAN x10^3 (test 0.20 10*3/uL 0.00-0.06 H code = 5508353738) LYMPH x10^3 (test code 1.99 10*3/uL 1.32-3.29 = 731-0) MONO x10^3 (test code 0.73 10*3/uL 0.33-0.92 = 742-7) EOS x10^3 (test code = <0.03 0.03-0.39 L 711-2) BASO x10^3 (test code 0.04 10*3/uL 0.01-0.07 = 704-7) BANDS (test code = Increased A 4267021835) Lab Interpretation Abnormal (test code = 71724-0) [facility] 00:30:48 Test Item Value Reference Range Interpretation Comments MAGNESIUM (test code = 6322075568) 1.4 mg/dL 1.7-2.4 L Lab Interpretation (test code = Abnormal 10635-6) [facility] (NA, K, CL, CO2, GLUCOSE, BUN, CREATININE, CA)2020-12-06 00:00:55 Test Item Value Reference Range Interpretation Comments NA (test code = 135 mmol/L 135-145 3979872246) K (test code = 2.3 mmol/L 3.5-5.0 LL 6006454920) CL (test code = 116 mmol/L 98-108 H 2437922996) CO2 TOTAL (test code = 14 mmol/L 23-31 L 3548491670) AGAP (test code = 2-16 2325529609) BUN (test code = 16 mg/dL 7-23 1434865060) GLUCOSE (test code = 98 mg/dL 70-110 2048268935) CREATININE (test code = 0.85 mg/dL 0.50-1.04 8937736750) CALCIUM (test code = 5.7 mg/dL 8.6-10.6 LL 3679189142) eGFR (test code = mL/min/1.73m2 1689427318) ANTHONY (test code = ANTHONY) Association of [...] tests). Lab Interpretation Abnormal (test code = 02481-7) [facility] [id number] 20:54:58 Test Item Value Reference Range Interpretation Comments TSH (test code = See_Comment [Automated message] 8800761688) The system [employer] generated this result transmitted ref erence range: 0.45 - 4 .70 mIU/L. The refe rence range was not u sed to interpret this result as normal/abnor mal. Lab Interpretation (test Normal code = 08989-8) [facility] 20:23:21 Test Item Value Reference Range Interpretation Comments LIPASE (test code = 9881980687) 130 U/L 0-220 Lab Interpretation (test code = Normal 05970-2) [facility] [id number] 19:46:50 Test Item Value Reference Range Interpretation [...] RDW-SD (test code = 49.2 fL 39.0-49.9 83011-2) RDW-CV (test code = 14.8 % 12.0-15.5 788-0) PLT (test code = See_Comment [Automated 777-3) message] The system which generated this result transmitted reference range : 166 - 358 10*3/?L. The reference range was not used to interpret this result as normal/abnormal . MPV (test code = 11.9 fL 9.5-12.9 50042-9) NRBC/100 WBC (test See_Comment [Automat ed code = 1159180926) message] The system which generated this result transmitted reference range : 0.0 - 10.0 /100 WBCs. The reference range was not used to interpret this result as normal/abnormal . NRBC x10^3 (test code See_Comment [Auto mated = 9539583011) message] The system which generated this result transmitted reference range : 10*3/?L. The reference range was not used to interpret this result as normal/abnormal . GRAN MAT (NEUT) % 45.3 % (test code = 770-8) IMM GRAN % (test code 1.60 % = 1766897811) LYMPH % (test code = 41.5 % 736-9) MONO % (test code = 10.4 % 5905-5) EOS % (test code = 0.6 % 713-8) BASO % (test code = 0.6 % 706-2) GRAN MAT x10^3(ANC) 3.18 10*3/uL 1.88-7.09 (test code = 2138682458) IMM GRAN x10^3 (test 0.11 10*3/uL 0.00-0.06 H code = 2456942409) LYMPH x10^3 (test 2.91 10*3/uL 1.32-3.29 code [...] BANDS (test code = MARKED INCREASED A 0889749906) LG GRAN LYMPHS (test Rare Rare code = 6923804042) REACT LYMPHS (test Rare code = 7922212906) TOXIC CHANGES (test Present A code = 803-7) Lab Interpretation Abnormal (test code = 51241-1) [facility] >30DAYS)2020-12-05 19:44:00 Test Item Value Reference Range Interpretation Comments POCT Glu (age>30days) (test code = 154 mg/dL 70-110 A 3342) Lab Interpretation (test code = Abnormal 42472-0) [facility] Texas[facility]roponin [id number] 19:21:17 Test Item Value Reference Interpretation Comments Range TROPONIN I (test 0.008 ng/mL See_Comment [Automated code = 0501162806) message] The system which generated this result [...] biotin. Lab Interpretation Normal (test code = 90177-4) [facility]. METABOLIC PANEL (10465)2020-12-05 19:10:58 Test Item Value Reference Range Interpretation Comments NA (test code = 122 mmol/L 135-145 L 2891080308) K (test code = 3.2 mmol/L 3.5-5.0 L 9111241698) CL (test code = 97 mmol/L 98-108 L 7440583397) CO2 TOTAL (test code = 16 mmol/L 23-31 L 5192150468) AGAP (test code = 2-16 0985923823) BUN (test code = 21 mg/dL 7-23 5753853422) GLUCOSE (test code = 154 mg/dL 70-110 H 9935394565) CREATININE (test code = 1.40 mg/dL 0.50-1.04 H 3249288606) TOTAL BILI (test code = 0.6 mg/dL 0.1-1.6 9028167861) CALCIUM (test code = 8.6 mg/dL 8.6-10.6 2474629630) T PROTEIN (test code = 5.7 g/dL 6.3-8.2 L 5299202889) ALBUMIN (test code = 3.0 g/dL 3.5-5.0 L 3929015201) ALK PHOS (test code = 187 U/L 34-122 H 1153167036) ALTv (test code = 43 U/L 5-35 H 1742-6) AST(SGOT) (test code = 66 U/L 13-40 H 7612641756) eGFR (test code = mL/min/1.73m2 8690222034) ANTHONY (test code = ANTHONY) Association of [...] tests). Lab Interpretation Abnormal (test code = 73006-1) [facility] 19:10:58 Test Item Value Reference Range Interpretation Comments MAGNESIUM (test code = 4831673692) 1.8 mg/dL 1.7-2.4 Lab Interpretation (test code = Normal 00510-0) [id number] 18:53:00 Test Item Value Reference Range Interpretation Comments POCT PREG (test code = 1605) negative POCT PREG LOT # (test code = 3575) [id number] POCT PREG TEST DATE (test 2022-02-11 code = 3576) Lab Interpretation (test code = Normal 40450-6) [facility]2020[facility]10 17:06:47 Test Item Value Reference Range Interpretation Comments ANTI-SSA(RO) (test code = Negative Negative [id number]) ANTHONY (test code = ANTHONY) Positive - Antibody detected.Negative - No antibody detected. Lab Interpretation (test Normal code = 99179-1) [facility]2020-08-10 17:06:47 Test Item Value Reference Range Interpretation Comments Anti-SSB(LA) (test code = Negative Negative [id number]) ANTHONY (test code = ANTHONY) Positive - Antibody detected.Negative - No antibody detected. Lab Interpretation (test Normal code = 86731-6) [facility] [id number] 14:42:16 Test Item Value Reference Range Interpretation Comments RF (test code = <20 See_Comment [Automated message] [id number]) The system [employer] generated this result transmitted ref erence range: <20 IU/m L. The reference range was not used to int erpret this result as normal/abnormal . Lab Interpretation (test Normal code = 43165-6) [facility]-REACTIVE [id number] 14:41:04 Test Item Value Reference Range Interpretation Comments CRP (test code = [id number]) 0.3 mg/dL <0.8 Lab Interpretation (test code = Normal 52442-6) [facility] OR LEXX ONLY - [id number] 09:50:30 Test Item Value Reference Range Interpretation Comments RPR (Qualitative) (test code = Nonreactive Nonreactive 61666-2) Lab Interpretation (test code = Normal 29509-5) [facility] WITH [id number] 20:09:42 Test Item Value Reference Range Interpretation Comments HIV Negative Negative Semi-quantitative (test code = 30140-3) ANTHONY (test code = Non-reactive for HIV-1 ANTHONY) antigen and HIV-1/HIV-2 antibodies. ?No laboratory evidence of HIV infection. ?Repeat in 2-4 weeks if acute HIV infection is suspected. [facility] TexasSEDIMENTATION [id number] 19:49:09 Test Item Value Reference Range Interpretation Comments ESR (test code = See_Comment H [Automated message] 2828330823) The system [employer] generated this result transmitted ref erence range: 0 - 20 m m/HR. The reference r miky was not used to interpret this result as normal/abnor mal. Lab Interpretation (test Abnormal code = 55349-8) [facility]. METABOLIC PANEL ([id number])2020-08-09 19:29:16 Test Item Value Reference Range Interpretation Comments NA (test code = 133 mmol/L 135-145 L 2779577005) K (test code = 4.4 mmol/L 3.5-5.0 1548457856) CL (test code = 97 mmol/L 98-108 L 0108674896) CO2 TOTAL (test code = 24 mmol/L 23-31 2925343068) AGAP (test code = 2-16 1563171280) BUN (test code = 21 mg/dL 7-23 3982960206) GLUCOSE (test code = 154 mg/dL 70-110 H 4305762070) CREATININE (test code = 0.86 mg/dL 0.50-1.04 5386086133) TOTAL BILI (test code = 0.5 mg/dL 0.1-1.3 3006268819) CALCIUM (test code = 10.0 mg/dL 8.6-10.6 9619556600) T PROTEIN (test code = 8.0 g/dL 6.3-8.2 1775835135) ALBUMIN (test code = 5.1 g/dL 3.5-5.0 H 6603230215) ALK PHOS (test code = 85 U/L 34-122 2545279149) ALTv (test code = 36 U/L 5-35 H 1742-6) AST(SGOT) (test code = 24 U/L 13-40 7165659170) eGFR (test code = mL/min/1.73m2 1994785409) ANTHONY (test code = ANTHONY) Association of [...] tests). Lab Interpretation Abnormal (test code = 33068-4) [facility] 18:21:29 Test Item Value Reference Range Interpretation Comments APPEARANCE (test code = Clear Clear 7675646313) COLOR (test code = Yellow Yellow 6649268188) PH (test code = 4.8-8.0 4040331140) SP GRAVITY (test code = 1.003-1.030 9114935888) GLU U QUAL (test code = Normal Normal 8766348928) BLOOD (test code = Negative Negative 2235259506) KETONES (test code = Negative Negative 8931630624) PROTEIN (test code = Negative Negative 2887-8) UROBILIN (test code = Normal Normal 8886883618) BILIRUBIN (test code = Negative Negative 0701967696) NITRITE (test code = Negative Negative 0898521587) LEUK MURRAY (test code = Negative Negative 1252617334) RBC/HPF (test code = <1 See_Comment [Autom ated message] 4267948522) The system [employer] generated this result transmitted ref erence range: 0 - 3 HP F. The reference range was not used to int erpret this result as normal/abnormal . WBC/HPF (test code = See_Comment [Autom ated message] 9153008236) The system [employer] generated this result transmitted ref erence range: 0 - 5 HP F. The reference range was not used to int erpret this result as normal/abnormal . BACTERIA (test code = Negative Negative 5476096292) MUCOUS (test code = Slight Negative LPF A 7293304281) SQ EPITH (test code = <1 HPF 1056200308) Lab Interpretation (test Abnormal code = 60743-4) [facility] 18:21:29 Test Item Value Reference Range Interpretation Comments APPEARANCE (test code = Clear Clear 4330014515) COLOR (test code = Yellow Yellow 5680310040) PH (test code = 4.8-8.0 6201439601) SP GRAVITY (test code = 1.003-1.030 7203746520) GLU U QUAL (test code = Normal Normal 0709980921) BLOOD (test code = Negative Negative 0504951058) KETONES (test code = Negative Negative 1281039984) PROTEIN (test code = Negative Negative 2887-8) UROBILIN (test code = Normal Normal 9714906375) BILIRUBIN (test code = Negative Negative 6602192494) NITRITE (test code = Negative Negative 9676258051) LEUK MURRAY (test code = Negative Negative 4990166774) RBC/HPF (test code = <1 See_Comment [Autom ated message] 5334673541) The system [employer] generated this result transmitted ref erence range: 0 - 3 HP F. The reference range was not used to int erpret this result as normal/abnormal . WBC/HPF (test code = See_Comment [Autom ated message] 7048967209) The system [employer] generated this result transmitted ref erence range: 0 - 5 HP F. The reference range was not used to int erpret this result as normal/abnormal . BACTERIA (test code = Negative Negative 3945636833) MUCOUS (test code = Slight Negative LPF A 5305454557) SQ EPITH (test code = <1 HPF 0219615661) Lab Interpretation (test Abnormal code = 63799-2) [facility]CB WITH [id number] 17:36:57 Test Item Value Reference Range Interpretation Comments WBC (test code = See_Comment [Automated 2382-2) message] The sy stem which generated this [...] RDW-SD (test code = 47.8 fL 39.0-49.9 65660-8) RDW-CV (test code = 13.4 % 12.0-15.5 788-0) PLT (test code = See_Comment [Automated 777-3) message] The sy stem which generated this result transmitted reference range : 166 - 358 10*3/ ?L. The reference r miky was not used to interpret this result as normal/abnormal . MPV (test code = 9.4 fL 9.5-12.9 L 21193-7) NRBC/100 WBC (test See_Comment [Automat ed code = 8840021325) message] The system which generated this result transmitted reference range : 0.0 - 10.0 /100 WBCs. The refer ence range was not u sed to interpret th is result as normal/abnormal . NRBC x10^3 (test code <0.01 See_Comment [Auto mated = 9837618805) message] The s ystem which generated this result transmitted reference range : 10*3/?L. The reference range was not used to interpret this result as normal/abnormal . GRAN MAT (NEUT) % 80.8 % (test code = 770-8) IMM GRAN % (test code 1.90 % = 4714444225) LYMPH % (test code = 15.0 % 736-9) MONO % (test code = 2.1 % 5905-5) EOS % (test code = 0.1 % 713-8) BASO % (test code = 0.1 % 706-2) GRAN MAT x10^3(ANC) 6.79 10*3/uL 1.88-7.09 (test code = 6940461396) IMM GRAN x10^3 (test 0.16 10*3/uL 0.00-0.06 H code = 3890176819) LYMPH x10^3 (test code 1.26 10*3/uL 1.32-3.29 L = 731-0) MONO x10^3 (test code 0.18 10*3/uL 0.33-0.92 L = 742-7) EOS x10^3 (test code = <0.03 0.03-0.39 L 711-2) BASO x10^3 (test code <0.03 0.01-0.07 = 704-7) Lab Interpretation Abnormal (test code = 84840-1) [facility] WITH [id number] 17:36:57 Test Item Value Reference Range Interpretation [...] RDW-SD (test code = 47.8 fL 39.0-49.9 45424-3) RDW-CV (test code = 13.4 % 12.0-15.5 788-0) PLT (test code = See_Comment [Automated 777-3) message] The sy stem which generated this result transmitted reference range : 166 - 358 10*3/ ?L. The reference r miky was not used to interpret this result as normal/abnormal . MPV (test code = 9.4 fL 9.5-12.9 L 56863-7) NRBC/100 WBC (test See_Comment [Automat ed code = 7589734514) message] The system which generated this result transmitted reference range : 0.0 - 10.0 /100 WBCs. The refer ence range was not u sed to interpret th is result as normal/abnormal . NRBC x10^3 (test code <0.01 See_Comment [Auto mated = 6382395298) message] The s ystem which generated this result transmitted reference range : 10*3/?L. The reference range was not used to interpret this result as normal/abnormal . GRAN MAT (NEUT) % 80.8 % (test code = 770-8) IMM GRAN % (test code 1.90 % = 4621474239) LYMPH % (test code = 15.0 % 736-9) MONO % (test code = 2.1 % 5905-5) EOS % (test code = 0.1 % 713-8) BASO % (test code = 0.1 % 706-2) GRAN MAT x10^3(ANC) 6.79 10*3/uL 1.88-7.09 (test code = 2214257678) IMM GRAN x10^3 (test 0.16 10*3/uL 0.00-0.06 H code = 6511393372) LYMPH x10^3 (test code 1.26 10*3/uL 1.32-3.29 L = 731-0) MONO x10^3 (test code 0.18 10*3/uL 0.33-0.92 L = 742-7) EOS x10^3 (test code = <0.03 0.03-0.39 L 711-2) BASO x10^3 (test code <0.03 0.01-0.07 = 704-7) Lab Interpretation Abnormal (test code = 93937-2) [facility] PAN[facility] BY [id number] 22:27:23 Test Item Value Reference Range Interpretation Comments Escherichia coli K1 Negative Negative, (test code = 06990-5) Indeterminate, See Comment Haemophilus influenzae Negative Negative, (test code = 64617-1) Indeterminate, See Comment Listeria monocytogenes Negative Negative, (test code = 22752-0) Indeterminate, See Comment Neisseria meningitidis Negative Negative, (encapsulated) (test Indeterminate, code = 89090-4) See Comment Streptococcus agalactiae Negative Negative, (test code = 69677-4) Indeterminate, See Comment Streptococcus pneumoniae Negative Negative, (test code = 16221-2) Indeterminate, See Comment Cytomegalovirus (test Negative Negative, code = 38479-7) Indeterminate, See Comment Enterovirus (test code = Negative Negative, 05206-5) Indeterminate, See Comment Herpes simplex virus 1 Negative Negative, (test code = 88269-4) Indeterminate, See Comment Herpes simplex virus 2 Negative Negative, (test code = 68467-9) Indeterminate, See Comment Human herpesvirus 6 Negative Negative, (test code = 01649-9) Indeterminate, See Comment Human parechovirus (test Negative Negative, code = 25186-8) Indeterminate, See Comment Varicella zoster virus Negative Negative, (test code = 11946-5) Indeterminate, See Comment Cryptococcus Negative Negative, neoformans/gattii (test Indeterminate, code = 94478-9) See Comment ANTHONY (test code = ANTHONY) Negative:A negative result does not rule-out infection. ?This assay does not test for all potential infectious agents. Positive:A positive test result does not necessarily indicate the presence of viable organism. ? Lab Interpretation (test Normal code = 33768-1) [facility] FLUID DIRECT [id number] 21:52:07 Test Item Value Reference Range Interpretation Comments BF COLOR (test code = Clear 9217029336) BF WBC Count (test See_Comment [Automat ed message] The code = 8091025924) system [facility] generated this result transmit karly reference range : 0 - 5 /?L. The reference r miky was not used to interpr et this result as cassandra l/abnormal. BF RBC Count (test See_Comment [Automat ed message] The code = 3254650850) system [facility] generated this result transmit karly reference range : /?L. The reference range was not used to interpr et this result as cassandra l/abnormal. [facility] FLUID MANUAL [id number] 21:52:07BF SEGSComment: Less than 100 cells counted due to low WBC; Differential is not reported in percent. 10 cells counted: 1 Neutrophils, 9 Lymphocytes, 0 Macrophages [facility]#CELS CNTDUTMB LABORATORY SERVICESUnGonzales Memorial HospitalCEREBROSPINAL FLUID [id number] 20:58:36 Test Item Value Reference Range Interpretation Comments T. PRO CSF (test code = 68.0 mg/dL 15.0-45.0 H 6955159006) UNSPUN BODY FLUID COLOR Light Red (test code = 0887334563) UNSPUN BODY FLUID CLARITY Cloudy (test code = 0260004288) SPUN BODY FLUID COLOR [place] (test code = 7417392646) SPUN BODY FLUID CLARITY Clear (test code = 1287817497) Sediment (test code = The se diment 5195829371) volume is <0.1 mLs of the total fl uid volume of 5cc a nd its color is re d. Lab Interpretation (test Abnormal code = 14072-9) [facility] [id number] 20:58:25 Test Item Value Reference Range Interpretation Comments GLU CSF (test code = 74 mg/dL 50-80 3022355394) UNSPUN BODY FLUID Light Red COLOR (test code = 4801844593) UNSPUN BODY FLUID Cloudy CLARITY (test code = 7977491697) SPUN BODY FLUID COLOR [place] (test code = 8145890704) SPUN BODY FLUID Clear CLARITY (test code = 0520368007) Sediment (test code = The se diment volume is 2426238313) <0.1 mLs of the total fluid volume of 5cc and its color i s red. [facility]XR [facility]ST 1 [id number] 15:19:43 No acute cardiopulmonary process. Preliminary Report Dictated by Resident: Francisco Reyes MD., have reviewed this study and agree with theabove report.PROCEDURE: XR CHEST 1 VW CLINICAL INDICATION: leukocytosis TECHNIQUE: Frontal chest radiograph was obtained. COMPARISON: 06/26/2020 FINDINGS: The lungs are clear. No pleural effusion or pneumothorax is seen. The heart is normal in size. No acute bony abnormality is noted. [facility], Radiant Results Inft User - 07/14/2020 10:20 [...] this study and agree with theabove report. [facility]POM[facility] GLUCOSE (AUTOMATED)2020-07-14 15:07:20 Test Item Value Reference Range Interpretation Comments POCT GLU (test code = 1903432774) 98 mg/dL 70-110 Lab Interpretation (test code = Normal 22875-6) [facility] TexasC-REACTIVE [id number] 14:51:17 Test Item Value Reference Range Interpretation Comments CRP (test code = 6056855842) 0.2 mg/dL <0.8 Lab Interpretation (test code = Normal 95766-7) [facility] TexasMAGNESIUM2021-06-02 14:40:38 Test Item Value Reference Range Interpretation Comments MAGNESIUM (test code = 8374414056) 2.1 mg/dL 1.7-2.4 Lab Interpretation (test code = Normal 86597-3) [facility] TexasPhosphorus [id number] 13:50:50 Test Item Value Reference Range Interpretation Comments PHOSPHORUS (test code = 8405555822) 3.1 mg/dL 2.5-5.0 Lab Interpretation (test code = Normal 46074-3) [facility] TexasBasic Metabolic Panel (NA, K, CL, CO2, GLUCOSE, BUN, CREATININE, CA)2020-07-14 12:41:09 Test Item Value Reference Range Interpretation Comments NA (test code = 136 mmol/L 135-145 9507971588) K (test code = 4.3 mmol/L 3.5-5.0 9622388474) CL (test code = 108 mmol/L 98-108 0480818783) CO2 TOTAL (test code = 17 mmol/L 23-31 L 4233501465) AGAP (test code = 2-16 6172609387) BUN (test code = 22 mg/dL 7-23 6940047711) GLUCOSE (test code = 98 mg/dL 70-110 1783986642) CREATININE (test code = 0.70 mg/dL 0.50-1.04 5224270462) CALCIUM (test code = 9.4 mg/dL 8.6-10.6 6081606447) eGFR (test code = mL/min/1.73m2 2671625022) ANTHONY (test code = ANTHONY) Association of [...] tests). Lab Interpretation Abnormal (test code = 63765-2) [facility] TexasHepatic Function Panel (ALB, T.PRO, BILI T, BU/BC, ALT, AST, ALK PHOS)2020-07-14 12:41:09 Test Item Value Reference Range Interpretation Comments TOTAL BILI (test code = 8968823666) 0.3 mg/dL 0.1-1.1 BILI UNCON (test code = 0323525444) 0.1 mg/dL 0.1-1.1 BILI CONJ (test code = 7123974031) 0.0 mg/dL 0.0-0.3 T PROTEIN (test code = 2931975693) 7.6 g/dL 6.3-8.2 ALBUMIN (test code = 6516677051) 4.6 g/dL 3.5-5.0 ALK PHOS (test code = 8195256885) 120 U/L 34-122 ALTv (test code = 1742-6) 42 U/L 5-35 H AST(SGOT) (test code = 5538817558) 24 U/L 13-40 Lab Interpretation (test code = Abnormal 69879-0) [facility] TexasUrinalysis2021-06-02 10:22:07 Test Item Value Reference Range Interpretation Comments APPEARANCE (test code = Clear Clear 1163526959) COLOR (test code = Yellow Yellow 9870535080) PH (test code = 4.8-8.0 7540891360) SP GRAVITY (test code = 1.003-1.030 2451007952) GLU U QUAL (test code = Normal Normal 1108908547) BLOOD (test code = Negative Negative 5816961794) KETONES (test code = Negative Negative 8459547681) PROTEIN (test code = Negative Negative 2887-8) UROBILIN (test code = Normal Normal 0257455596) BILIRUBIN (test code = Negative Negative 2448914658) NITRITE (test code = Negative Negative 1126819764) LEUK MURRAY (test code = Negative Negative 8700795646) RBC/HPF (test code = See_Comment [Autom ated message] 4883020694) The system [employer] generated this result transmitted ref erence range: 0 - 3 HP F. The reference range was not used to int erpret this result as normal/abnormal . WBC/HPF (test code = See_Comment [Autom ated message] 7661319689) The system [employer] generated this result transmitted ref erence range: 0 - 5 HP F. The reference range was not used to int erpret this result as normal/abnormal . BACTERIA (test code = Negative Negative 2348742382) MUCOUS (test code = Slight Negative LPF A 7965352193) SQ EPITH (test code = See_Comment [Auto mated message] 1619628681) The system [employer] generated this result transmitted ref erence range: <=2 HPF. The reference range was not used to int erpret this result as normal/abnormal . Lab Interpretation (test Abnormal code = 19652-7) [facility] TexasCOVID-19 (ID NOW RAPID TESTING)2020-07-14 09:45:51 Test Item Value Reference Range Interpretation Comments SARS-CoV-2 Rapid ID NOW Not Detected Not Detected (test code = 27911-7) ANTHONY (test code = ANTHONY) ID NOW COVID-19 Assay is an isothermal nucleic acid amplification test intended for the qualitative detection of nucleic acid from SARS-CoV-2 viral RNA in nasopharyngeal (CUSTOMER EXPERT) specimens. It is used under Emergency Use [...] indicated. Lab Interpretation Normal (test code = 68794-8) [facility] with [id number] 02:07:47 Test Item Value Reference Range Interpretation Comments WBC (test code = See_Comment H [Automated 2801-2) message] The system which generated this result transmit karly reference range : 4.30 - 11.10 10*3/?L. The reference range was not used to interpret this result as normal/abnormal . RBC (test code = See_Comment L [Automated 709-8) message] The system which generated this result [...] RDW-SD (test code = 47.8 fL 39.0-49.9 57793-6) RDW-CV (test code = 13.6 % 12.0-15.5 788-0) PLT (test code = See_Comment H [Automated 777-3) message] The system which generated this result transmit karly reference range : 166 - 358 10*3/ ?L. The reference range was not u sed to interpret th is result as normal/abnormal . MPV (test code = 10.6 fL 9.5-12.9 13022-4) NRBC/100 WBC (test See_Comment [Automat ed code = 5982783726) message] The system which generated this result transmit karly reference range : 0.0 - 10.0 /100 WBCs. The reference range was not used to interpret this result as normal/abnormal . NRBC x10^3 (test code See_Comment [Auto mated = 3114111470) message] The system which generated this result transmit karly reference range : 10*3/?L. The reference range was not used to interpret this result as normal/abnormal . GRAN MAT (NEUT) % 70.5 % (test code = 770-8) IMM GRAN % (test code 1.60 % = 3264989165) LYMPH % (test code = 20.8 % 736-9) MONO % (test code = 6.8 % 5905-5) EOS % (test code = 0.1 % 713-8) BASO % (test code = 0.2 % 706-2) GRAN MAT x10^3(ANC) 12.19 10*3/uL 1.88-7.09 H (test code = 6164484142) IMM GRAN x10^3 (test 0.27 10*3/uL 0.00-0.06 H code = 5723844714) LYMPH x10^3 (test code 3.58 10*3/uL 1.32-3.29 H = 731-0) MONO x10^3 (test code 1.17 10*3/uL 0.33-0.92 H = 742-7) EOS x10^3 (test code = <0.03 0.03-0.39 L 711-2) BASO x10^3 (test code 0.03 10*3/uL 0.01-0.07 = 704-7) Lab Interpretation Abnormal (test code = 40450-2) [facility] TexasSEDIMENTATION [id number] 02:02:09 Test Item Value Reference Range Interpretation Comments ESR (test code = See_Comment H [Automated message] 6592526920) The system [employer] generated this result transmitted ref erence range: 0 - 20 m m/HR. The reference r miky was not used to interpret this result as normal/abnor mal. Lab Interpretation (test Abnormal code = 11552-3) [facility] WITH [id number] 03:30:13 Test Item Value Reference Range Interpretation [...] RDW-SD (test code = 48.1 fL 39.0-49.9 85019-1) RDW-CV (test code = 13.3 % 12.0-15.5 788-0) PLT (test code = See_Comment [Automated 777-3) message] The sy stem which generated this result transmitted reference range : 166 - 358 10*3/ ?L. The reference r miky was not used to interpret this result as normal/abnormal . MPV (test code = 10.4 fL 9.5-12.9 69630-2) NRBC/100 WBC (test See_Comment [Automat ed code = 4270843586) message] The system which generated this result transmitted reference range : 0.0 - 10.0 /100 WBCs. The refer ence range was not u sed to interpret th is result as normal/abnormal . NRBC x10^3 (test code <0.01 See_Comment [Auto mated = 4384948520) message] The s ystem which generated this result transmitted reference range : 10*3/?L. The reference range was not used to interpret this result as normal/abnormal . GRAN MAT (NEUT) % 44.6 % (test code = 770-8) IMM GRAN % (test code 0.80 % = 3460305080) LYMPH % (test code = 43.3 % 736-9) MONO % (test code = 10.0 % 5905-5) EOS % (test code = 0.9 % 713-8) BASO % (test code = 0.4 % 706-2) GRAN MAT x10^3(ANC) 3.52 10*3/uL 1.88-7.09 (test code = 5434732193) IMM GRAN x10^3 (test 0.06 10*3/uL 0.00-0.06 code = 5243489199) LYMPH x10^3 (test code 3.42 10*3/uL 1.32-3.29 H = 731-0) MONO x10^3 (test code 0.79 10*3/uL 0.33-0.92 = 742-7) EOS x10^3 (test code = 0.07 10*3/uL 0.03-0.39 711-2) BASO x10^3 (test code 0.03 10*3/uL 0.01-0.07 = 704-7) Lab Interpretation Abnormal (test code = 72591-2) [facility] TexasLIPASE2021-[facility] 19:38:39 Test Item Value Reference Range Interpretation Comments LIPASE (test code = 8871877628) 39 U/L 0-220 Lab Interpretation (test code = Normal 55973-5) [facility]. METABOLIC PANEL (19247)2020-07-04 19:20:59 Test Item Value Reference Range Interpretation Comments NA (test code = 138 mmol/L 135-145 0304155969) K (test code = 3.9 mmol/L 3.5-5.0 8387851614) CL (test code = 101 mmol/L 98-108 0103176197) CO2 TOTAL (test code = 27 mmol/L 23-31 0944882676) AGAP (test code = 2-16 6988784206) BUN (test code = 20 mg/dL 7-23 0397754337) GLUCOSE (test code = 105 mg/dL 70-110 8712852366) CREATININE (test code = 0.78 mg/dL 0.50-1.04 0426421304) TOTAL BILI (test code = 0.4 mg/dL 0.1-1.0 5476572586) CALCIUM (test code = 9.8 mg/dL 8.6-10.6 2368188029) T PROTEIN (test code = 9.1 g/dL 6.3-8.2 H 7596085442) ALBUMIN (test code = 4.9 g/dL 3.5-5.0 6489220685) ALK PHOS (test code = 171 U/L 34-122 H 0017305774) ALTv (test code = 136 U/L 5-35 H 1742-6) AST(SGOT) (test code = 82 U/L 13-40 H 1044158327) eGFR (test code = mL/min/1.73m2 3544463564) ANTHONY (test code = ANTHONY) Association of [...] tests). Lab Interpretation Abnormal (test code = 29943-4) [facility] TexasUrinalysis2021-05-23 19:14:12 Test Item Value Reference Range Interpretation Comments APPEARANCE (test code = Clear Clear 4006946143) COLOR (test code = Yellow Yellow 3772232350) PH (test code = 4.8-8.0 4584175989) SP GRAVITY (test code = 1.003-1.030 5012606596) GLU U QUAL (test code = Normal Normal 4675754320) BLOOD (test code = Negative Negative 7374407260) KETONES (test code = Negative Negative 3246416537) PROTEIN (test code = Negative Negative 2887-8) UROBILIN (test code = Normal Normal 7153671257) BILIRUBIN (test code = Negative Negative 9518576636) NITRITE (test code = Negative Negative 3007237832) LEUK MURRAY (test code = 75/uL Negative A 6854233060) RBC/HPF (test code = See_Comment [Autom ated message] 7187594960) The system [employer] generated this result transmitted ref erence range: 0 - 3 HP F. The reference range was not used to int erpret this result as normal/abnormal . WBC/HPF (test code = See_Comment H [Autom ated message] 9648149396) The system [employer] generated this result transmitted ref erence range: 0 - 5 HP F. The reference range was not used to int erpret this result as normal/abnormal . BACTERIA (test code = Negative Negative 5948292531) MUCOUS (test code = Slight Negative LPF A 4384586163) SQ EPITH (test code = HPF 1060715998) Lab Interpretation (test Abnormal code = 94689-6) [facility] WITH [id number] 19:10:40 Test Item Value Reference Range Interpretation [...] RDW-SD (test code = 47.2 fL 39.0-49.9 21893-5) RDW-CV (test code = 13.2 % 12.0-15.5 788-0) PLT (test code = See_Comment [Automated 777-3) message] The sy stem which generated this result transmitted reference range : 166 - 358 10*3/ ?L. The reference r miky was not used to interpret this result as normal/abnormal . MPV (test code = 10.5 fL 9.5-12.9 14818-5) NRBC/100 WBC (test See_Comment [Automat ed code = 2428459301) message] The system which generated this result transmitted reference range : 0.0 - 10.0 /100 WBCs. The refer ence range was not u sed to interpret th is result as normal/abnormal . NRBC x10^3 (test code <0.01 See_Comment [Auto mated = 9910695321) message] The s [employer] which generated this result transmitted reference range : 10*3/?L. The reference range was not used to interpret this result as normal/abnormal . GRAN MAT (NEUT) % 54.8 % (test code = 770-8) IMM GRAN % (test code 0.80 % = 6675694839) LYMPH % (test code = 32.1 % 736-9) MONO % (test code = 10.3 % 5905-5) EOS % (test code = 1.7 % 713-8) BASO % (test code = 0.3 % 706-2) GRAN MAT x10^3(ANC) 3.46 10*3/uL 1.88-7.09 (test code = 0003052966) IMM GRAN x10^3 (test 0.05 10*3/uL 0.00-0.06 code = 8015375221) LYMPH x10^3 (test code 2.03 10*3/uL 1.32-3.29 = 731-0) MONO x10^3 (test code 0.65 10*3/uL 0.33-0.92 = 742-7) EOS x10^3 (test code = 0.11 10*3/uL 0.03-0.39 711-2) BASO x10^3 (test code <0.03 0.01-0.07 = 704-7) Lab Interpretation Abnormal (test code = 98363-8) [facility] TexasZOL[facility] [id number] 17:09:15 Test Item Value Reference Range Interpretation Comments TROPONIN I (test 0.000 ng/mL See_Comment [Automated code = 1694869768) message] The system which generated this result [...] ? Lab Interpretation Normal (test code = 95953-6) [facility]MR BRAIN WO [id number] 15:28:24 Within the limitation of motion degrading [...] reviewed this study and agree with theabove report.[facility]CT [facility] HEAD 2020-06-27 01:50:14 No large vessel [...] suspected TECHNIQUE: Axial CT imaging of the [place] and from the skull baseto the superior mediastinum was obtained during arterial phase after theintravenous administration of IV contrast. Coronal, sagittal, and MIPS wereconstructed. COMPARISON: Same day CT head FINDINGS: CTA HEAD: The PICA origin is visualized bilaterally. The basilar artery is normal incaliber. Common origin of the left superior cerebellar and BLUING OVEN TENDER is noted.The superior cerebellar arteries are patent. The posterior cerebralarteries are patent. A right BLUING OVEN TENDER is identified. Asmall leftposterior communicating artery is [...] suspected TECHNIQUE: Axial CT imaging of the [place] and from the skull basetothe superior mediastinum was obtained during arterial phase after theintravenous administration of IV contrast. Coronal, sagittal, and MIPS wereconstructed.COMPARISON: Same day CT headFINDINGS:CTA HEAD:The PICA origin is visualized bilaterally. The basilar artery is normal incaliber. Common origin of the left superior cerebellar and BLUING OVEN TENDER is noted.The superior cerebellar arteries are patent. The posterior cerebralarteries are patent. A right BLUING OVEN TENDER is identified. A small leftposterior communicatingartery is [...] this study and agree with theabove report. [facility]CT [facility] [id number] 01:50:14 No large vessel occlusion or flow-limiting stenosis is identified in thehead and neck arteries. Follow-up with dedicated thyroid ultrasound on a non-emergent, outpatientbasis is recommended for further characterization. Preliminary Report Dictated by Resident: Aury Hallman MD.,have reviewed this study and agree with theabove report.EXAM: CT ANGIOGRAM HEAD, CT ANGIOGRAM NECK HISTORY: ?Headache, intracranial hemorrhage suspected TECHNIQUE: Axial CT imaging of the [place] and from the skull baseto the superior mediastinum was obtained during arterial phase after theintravenous administration of IV contrast. Coronal, sagittal, and MIPS wereconstructed. COMPARISON: Same day CT head FINDINGS: CTA HEAD: The PICA origin is visualized bilaterally. The basilar artery is normal incaliber. Common origin of the left superior cerebellar and BLUING OVEN TENDER is noted.The superior cerebellar arteries are patent. The posterior cerebralarteries are patent. A right BLUING OVEN TENDER is identified. Asmall leftposterior communicating artery is [...] suspected TECHNIQUE: Axial CT imaging of the [place] and from the skull basetothe superior mediastinum was obtained during arterial phase after theintravenous administration of IV contrast. Coronal, sagittal, and MIPS wereconstructed.COMPARISON: Same day CT headFINDINGS:CTA HEAD:The PICA origin is visualized bilaterally. The basilar artery is normal incaliber. Common origin of the left superior cerebellar and BLUING OVEN TENDER is noted.The superior cerebellar arteries are patent. The posterior cerebralarteries are patent. A right BLUING OVEN TENDER is identified. A small leftposterior communicating artery [...] this study and agree with theabove report. [facility] TexasSEDIMENTATION [id number] 01:00:08 Test Item Value Reference Range Interpretation Comments ESR (test code = See_Comment H [Automated message] [id number]) The system [employer] generated this result transmitted ref erence range: 0 - 20 m m/HR. The reference r miky was not used to interpret this result as normal/abnor mal. Lab Interpretation (test Abnormal code = 28184-4) [facility] TexasCT HEAD WO [id number] 00:39:04 No acute intracranial hemorrhage or mass [...] reviewed this study and agree with theabove report.[facility] TexasCOVID-19 (ID NOW RAPID TESTING)2020-06-26 22:58:15 Test Item Value Reference Range Interpretation Comments SARS-CoV-2 Rapid ID NOW Not Detected Not Detected (test code = 61509-9) ANTHONY (test code = ANTHONY) ID NOW COVID-19 Assay is an isothermal nucleic acid amplification test intended for the qualitative detection of nucleic acid from SARS-CoV-2 viral RNA in nasopharyngeal (CUSTOMER EXPERT) specimens. It is used under Emergency Use [...] indicated. Lab Interpretation Normal (test code = 46394-8) [facility] 1 [id number] 22:12:42 No acute cardiopulmonary abnormality. Preliminary Report [...] reviewed this study and agree with the abovereport.[facility] TexasUrinalysis 2020-06-26 21:49:50 Test Item Value Reference Range Interpretation Comments APPEARANCE (test code = Clear Clear 6323857204) COLOR (test code = Yellow Yellow 8055889019) PH (test code = 4.8-8.0 8884081872) SP GRAVITY (test code = 1.003-1.030 7194353691) GLU U QUAL (test code = Normal Normal 9645344178) BLOOD (test code = Negative Negative 8365808989) KETONES (test code = Negative Negative 5890550425) PROTEIN (test code = Negative Negative 2887-8) UROBILIN (test code = Normal Normal 9528588627) BILIRUBIN (test code = Negative Negative 7192595705) NITRITE (test code = Negative Negative 3272846596) LEUK MURRAY (test code = Negative Negative 5584036584) RBC/HPF (test code = See_Comment [Autom ated message] 0183348329) The system [employer] generated this result transmitted ref erence range: 0 - 3 HP F. The reference range was not used to int erpret this result as normal/abnormal . WBC/HPF (test code = See_Comment [Autom ated message] 5480916175) The system [employer] generated this result transmitted ref erence range: 0 - 5 HP F. The reference range was not used to int erpret this result as normal/abnormal . BACTERIA (test code = Negative Negative 5602476489) MUCOUS (test code = Slight Negative LPF A 1054360112) SQ EPITH (test code = HPF 3783204450) Lab Interpretation (test Abnormal code = 75003-0) [facility] TexasTroponin [id number] 21:18:44 Test Item Value Reference Range Interpretation Comments TROPONIN I (test <0.012 See_Comment [Automated code = 9176746347) message] The system which generated this result [...] ? Lab Interpretation Normal (test code = 34927-1) [facility] Metabolic Panel (NA, K, CL, CO2, GLUCOSE, BUN, CREATININE, CA)2020-06-26 21:07:49 Test Item Value Reference Range Interpretation Comments NA (test code = 141 mmol/L 135-145 1112913836) K (test code = 4.1 mmol/L 3.5-5.0 5513263616) CL (test code = 109 mmol/L 98-108 H 7186174977) CO2 TOTAL (test code = 23 mmol/L 23-31 5344103989) AGAP (test code = 2-16 3754661943) BUN (test code = 19 mg/dL 7-23 0324378554) GLUCOSE (test code = 112 mg/dL 70-110 H 7211704371) CREATININE (test code = 0.87 mg/dL 0.50-1.04 7297492277) CALCIUM (test code = 9.6 mg/dL 8.6-10.6 7554470691) eGFR (test code = mL/min/1.73m2 0097837451) ANTHONY (test code = ANTHONY) Association of [...] tests). Lab Interpretation Abnormal (test code = 94067-3) [facility] TexasHepatic Function Panel (ALB, T.PRO, BILI T, BU/BC, ALT, AST, ALK PHOS)2020-06-26 21:07:28 Test Item Value Reference Range Interpretation Comments TOTAL BILI (test code = 5411164859) 0.3 mg/dL 0.1-1.1 BILI UNCON (test code = 3251984780) 0.1 mg/dL 0.1-1.1 BILI CONJ (test code = 5212913056) 0.0 mg/dL 0.0-0.3 T PROTEIN (test code = 2982807523) 7.4 g/dL 6.3-8.2 ALBUMIN (test code = 6400241316) 4.4 g/dL 3.5-5.0 ALK PHOS (test code = 5537301572) 138 U/L 34-122 H ALTv (test code = 1742-6) 32 U/L 5-35 AST(SGOT) (test code = 6841252212) 40 U/L 13-40 Lab Interpretation (test code = Abnormal 52221-9) [facility] with Abuwibnlbqvd6062-12-50 20:55:04 Test Item Value Reference Range Interpretation [...] RDW-SD (test code = 49.3 fL 39.0-49.9 26695-4) RDW-CV (test code = 13.7 % 12.0-15.5 788-0) PLT (test code = See_Comment [Automated 777-3) message] The sy stem which generated this result transmitted reference range : 166 - 358 10*3/ ?L. The reference r miky was not used to interpret this result as normal/abnormal . MPV (test code = 10.7 fL 9.5-12.9 15444-7) NRBC/100 WBC (test See_Comment [Automat ed code = 7932761588) message] The system which generated this result transmitted reference range : 0.0 - 10.0 /100 WBCs. The refer ence range was not u sed to interpret th is result as normal/abnormal . NRBC x10^3 (test code <0.01 See_Comment [Auto mated = 4926886122) message] The s ystem which generated this result transmitted reference range : 10*3/?L. The reference range was not used to interpret this result as normal/abnormal . GRAN MAT (NEUT) % 57.2 % (test code = 770-8) IMM GRAN % (test code 0.20 % = 6276820180) LYMPH % (test code = 31.8 % 736-9) MONO % (test code = 9.9 % 5905-5) EOS % (test code = 0.6 % 713-8) BASO % (test code = 0.3 % 706-2) GRAN MAT x10^3(ANC) 3.80 10*3/uL 1.88-7.09 (test code = 8780948476) IMM GRAN x10^3 (test <0.03 0.00-0.06 code = 7218263159) LYMPH x10^3 (test code 2.11 10*3/uL 1.32-3.29 = 731-0) MONO x10^3 (test code 0.66 10*3/uL 0.33-0.92 = 742-7) EOS x10^3 (test code = 0.04 10*3/uL 0.03-0.39 711-2) BASO x10^3 (test code <0.03 0.01-0.07 = 704-7) Lab Interpretation Abnormal (test code = 70362-3) [facility]. METABOLIC PANEL (59357)2020-06-01 11:34:39 Test Item Value Reference Range Interpretation Comments NA (test code = 137 mmol/L 135-145 4704220606) K (test code = 4.3 mmol/L 3.5-5.0 5585089814) CL (test code = 106 mmol/L 98-108 0176422349) CO2 TOTAL (test code = 26 mmol/L 23-31 9845462137) AGAP (test code = 2-16 9554788919) BUN (test code = 13 mg/dL 7-23 5476167699) GLUCOSE (test code = 81 mg/dL 70-110 3634941156) CREATININE (test code = 0.76 mg/dL 0.50-1.04 9707680544) TOTAL BILI (test code = 0.4 mg/dL 0.1-1.6 5028060656) CALCIUM (test code = 8.5 mg/dL 8.6-10.6 L 4325030260) T PROTEIN (test code = 6.0 g/dL 6.3-8.2 L 3508849078) ALBUMIN (test code = 3.5 g/dL 3.5-5.0 4699809354) ALK PHOS (test code = 128 U/L 34-122 H 5677533021) ALTv (test code = 54 U/L 5-35 H 1742-6) AST(SGOT) (test code = 51 U/L 13-40 H 8316647012) eGFR (test code = mL/min/1.73m2 8839451377) ANTHONY (test code = ANTHONY) Association of [...] tests). Lab Interpretation Abnormal (test code = 90002-8) [facility] TexasLAB ONLY COVID [id number] 02:48:13COVID DMT InterpretationInterpretation/Recommendations: Molecular NAAT Tests for [...] COVID-19 testing the patient has had at [facility], including molecular NAAT testing (more commonlyknown as PCR testing and Rapid ID Now testing) and antibody testing. It does not take into account any testing that a patient has had outside of the [facility] medical record. [facility] LABORATORY SERVICESCOVID OzxnipuLDHU-SwM-5 Rapid ID NOW (no units) ? ? Date ? Value ? 05/30/2020 ? Not Detected ? [facility] (NA, K, CL, CO2, GLUCOSE, BUN, CREATININE, CA)2020-05-31 15:23:27 Test Item Value Reference Range Interpretation Comments NA (test code = 137 mmol/L 135-145 9064365355) K (test code = 4.0 mmol/L 3.5-5.0 3662513584) CL (test code = 105 mmol/L 98-108 2126841054) CO2 TOTAL (test code 27 mmol/L 23-31 = 4928086650) AGAP (test code = 2-16 3399198277) BUN (test code = 14 mg/dL 7-23 0248813485) GLUCOSE (test code = 92 mg/dL 70-110 8825978527) CREATININE (test code 0.72 mg/dL 0.50-1.04 = 9976218865) CALCIUM (test code = 8.8 mg/dL 8.6-10.6 4195180811) eGFR (test code = mL/min/1.73m2 9460461106) ANTHONY (test code = ANTHONY) Association of [...] or urine or abnormalities in imaging tests). [facility] with Zhcvgavtrxpm4748-61-60 12:40:08 Test Item Value Reference Range Interpretation [...] (test code = 51.6 fL 39.0-49.9 H 48984-3) RDW-CV (test code = 14.3 % 12.0-15.5 788-0) PLT (test code = See_Comment [Automated 777-3) message] The sy stem which generated this result transmitted reference range : 166 - 358 10*3/ ?L. The reference r miky was not used to interpret this result as normal/abnormal . MPV (test code = 10.0 fL 9.5-12.9 87038-7) NRBC/100 WBC (test See_Comment [Automat ed code = 3930143893) message] The system which generated this result transmitted reference range : 0.0 - 10.0 /100 WBCs. The refer ence range was not u sed to interpret th is result as normal/abnormal . NRBC x10^3 (test code <0.01 See_Comment [Auto mated = 2437990322) message] The s ystem which generated this result transmitted reference range : 10*3/?L. The reference range was not used to interpret this result as normal/abnormal . GRAN MAT (NEUT) % 40.2 % (test code = 770-8) IMM GRAN % (test code 0.40 % = 1967835421) LYMPH % (test code = 47.8 % 736-9) MONO % (test code = 10.5 % 5905-5) EOS % (test code = 0.9 % 713-8) BASO % (test code = 0.2 % 706-2) GRAN MAT x10^3(ANC) 2.15 10*3/uL 1.88-7.09 (test code = 2948792794) IMM GRAN x10^3 (test <0.03 0.00-0.06 code = 0141308371) LYMPH x10^3 (test code 2.55 10*3/uL 1.32-3.29 = 731-0) MONO x10^3 (test code 0.56 10*3/uL 0.33-0.92 = 742-7) EOS x10^3 (test code = 0.05 10*3/uL 0.03-0.39 711-2) BASO x10^3 (test code <0.03 0.01-0.07 = 704-7) Lab Interpretation Abnormal (test code = 89056-0) [facility]CT ABDOMEN PEL[facility] W WO [id number] 21:54:53 1. ?Nonobstructive left nephrolithiasis. No striated [...] this study and agree with theabove report. [facility] TexasCOVID-19 (ID NOW RAPID TESTING)2020-05-30 20:50:01 Test Item Value Reference Range Interpretation Comments SARS-CoV-2 Rapid ID NOW Not Detected Not Detected (test code = 28624-5) ANTHONY (test code = ANTHONY) ID NOW COVID-19 Assay is an isothermal nucleic acid amplification test intended for the qualitative detection of nucleic acid from SARS-CoV-2 viral RNA in nasopharyngeal (CUSTOMER EXPERT) specimens. It is used under Emergency Use [...] indicated. Lab Interpretation Normal (test code = 70889-9) [facility] Metabolic Panel (NA, K, CL, CO2, GLUCOSE, BUN, CREATININE, CA)2020-05-30 20:40:22 Test Item Value Reference Range Interpretation Comments NA (test code = 139 mmol/L 135-145 0046449759) K (test code = 4.0 mmol/L 3.5-5.0 4232940582) CL (test code = 105 mmol/L 98-108 2816599778) CO2 TOTAL (test code 25 mmol/L 23-31 = 5456956944) AGAP (test code = 2-16 6279315187) BUN (test code = 18 mg/dL 7-23 5169223706) GLUCOSE (test code = 100 mg/dL 70-110 0729153654) CREATININE (test code 0.66 mg/dL 0.50-1.04 = 8415955944) CALCIUM (test code = 9.2 mg/dL 8.6-10.6 2934563883) eGFR (test code = mL/min/1.73m2 3454856299) ANTHONY (test code = ANTHONY) Association of [...] or urine or abnormalities in imaging tests). [facility] Texas[facility] (ALB, T.PRO, BILI T, BU/BC, ALT, AST, ALK PHOS)2020-05-30 20:40:22 Test Item Value Reference Range Interpretation Comments TOTAL BILI (test code = 8503655180) 0.4 mg/dL 0.1-1.1 BILI UNCON (test code = 8466277317) 0.2 mg/dL 0.1-1.1 BILI CONJ (test code = 9941236275) 0.0 mg/dL 0.0-0.3 T PROTEIN (test code = 8223561811) 7.7 g/dL 6.3-8.2 ALBUMIN (test code = 5207594567) 4.6 g/dL 3.5-5.0 ALK PHOS (test code = 0297828477) 158 U/L 34-122 H ALTv (test code = 1742-6) 70 U/L 5-35 H AST(SGOT) (test code = 7413908191) 46 U/L 13-40 H Lab Interpretation (test code = Abnormal 52869-9) [facility] TexasaPTT2021-04-18 20:37:21 Test Item Value Reference Range Interpretation Comments APTT Patient (test See_Comment [Automat ed code = 3173-2) message] The system which generated this result transmitted reference range : 23 - 38 Seconds . The reference range was not used to interpr et this result as normal/abnormal . ANTHONY (test code = ANTHONY) The [facility] patient population mean normal value for aPTT is 30 seconds. Lab Interpretation Normal (test code = 32923-1) [facility] TexasProthrombin Time (PT) / [id number] 20:35:00 Test Item Value Reference Range Interpretation [...] tions. Lab Interpretation (test Normal code = 97617-3) [facility] TexasUrinalysis2021-04-18 20:34:10 Test Item Value Reference Range Interpretation Comments APPEARANCE (test code = Clear Clear 8099351353) COLOR (test code = Yellow Yellow 2497740389) PH (test code = 4.8-8.0 0925212628) SP GRAVITY (test code = 1.003-1.030 2555918267) GLU U QUAL (test code = Normal Normal 4198667164) BLOOD (test code = Negative Negative 4010215832) KETONES (test code = Negative Negative 9741611787) PROTEIN (test code = Negative Negative 2887-8) UROBILIN (test code = Normal Normal 7167976746) BILIRUBIN (test code = Negative Negative 1331841373) NITRITE (test code = Negative Negative 2358851564) LEUK MURRAY (test code = 25/uL Negative A 0220930605) RBC/HPF (test code = See_Comment [Autom ated message] 5496774838) The system [employer] generated this result transmitted ref erence range: 0 - 3 HP F. The reference range was not used to int erpret this result as normal/abnormal . WBC/HPF (test code = See_Comment [Autom ated message] 9375390556) The system [employer] generated this result transmitted ref erence range: 0 - 5 HP F. The reference range was not used to int erpret this result as normal/abnormal . BACTERIA (test code = Few Negative A 5419027289) MUCOUS (test code = Slight Negative LPF A 0835520597) SQ EPITH (test code = HPF 9536467814) Lab Interpretation (test Abnormal code = 67866-6) [facility] TexasCB with Phcdcdvhimxd0131-54-14 20:27:23 Test Item Value Reference Range Interpretation Comments WBC (test code = See_Comment [Automated 2290-2) message] The sy stem which generated this [...] RDW-SD (test code = 49.6 fL 39.0-49.9 88776-9) RDW-CV (test code = 14.1 % 12.0-15.5 788-0) PLT (test code = See_Comment [Automated 777-3) message] The sy stem which generated this result transmitted reference range : 166 - 358 10*3/ ?L. The reference r miky was not used to interpret this result as normal/abnormal . MPV (test code = 9.7 fL 9.5-12.9 11568-8) NRBC/100 WBC (test See_Comment [Automat ed code = 9753712475) message] The system which generated this result transmitted reference range : 0.0 - 10.0 /100 WBCs. The refer ence range was not u sed to interpret th is result as normal/abnormal . NRBC x10^3 (test code <0.01 See_Comment [Auto mated = 3137457606) message] The s ystem which generated this result transmitted reference range : 10*3/?L. The reference range was not used to interpret this result as normal/abnormal . GRAN MAT (NEUT) % 49.6 % (test code = 770-8) IMM GRAN % (test code 0.30 % = 4244701861) LYMPH % (test code = 38.7 % 736-9) MONO % (test code = 10.4 % 5905-5) EOS % (test code = 0.8 % 713-8) BASO % (test code = 0.2 % 706-2) GRAN MAT x10^3(ANC) 3.26 10*3/uL 1.88-7.09 (test code = 5863401245) IMM GRAN x10^3 (test <0.03 0.00-0.06 code = 8768038555) LYMPH x10^3 (test code 2.54 10*3/uL 1.32-3.29 = 731-0) MONO x10^3 (test code 0.68 10*3/uL 0.33-0.92 = 742-7) EOS x10^3 (test code = 0.05 10*3/uL 0.03-0.39 711-2) BASO x10^3 (test code <0.03 0.01-0.07 = 704-7) Lab Interpretation Abnormal (test code = 72292-7) [facility] TexasLactic Acid Whole Suikw1815-39-56 20:24:41 Test Item Value Reference Range Interpretation Comments LACTIC ACID (test code = 1.17 mmol/L 0.50-2.20 4917649958) Lab Interpretation (test code = Normal 37867-2) [facility] TexasUrinalysis2021-04-15 00:29:10 Test Item Value Reference Range Interpretation Comments APPEARANCE (test code = Clear Clear 5210441501) COLOR (test code = Yellow Yellow 0463173612) PH (test code = 4.8-8.0 7309187038) SP GRAVITY (test code = 1.003-1.030 9294486184) GLU U QUAL (test code = Normal Normal 7726544038) BLOOD (test code = Negative Negative 4574359891) KETONES (test code = Negative Negative 8344637138) PROTEIN (test code = Negative Negative 2887-8) UROBILIN (test code = Normal Normal 1721797017) BILIRUBIN (test code = Negative Negative 2861351756) NITRITE (test code = Negative Negative 3641830218) LEUK MURRAY (test code = 25/uL Negative A 4333787249) RBC/HPF (test code = See_Comment [Autom ated message] 9104489181) The system [employer] generated this result transmitted ref erence range: 0 - 3 HP F. The reference range was not used to int erpret this result as normal/abnormal . WBC/HPF (test code = See_Comment H [Autom ated message] 5895377820) The system [employer] generated this result transmitted ref erence range: 0 - 5 HP F. The reference range was not used to int erpret this result as normal/abnormal . BACTERIA (test code = Few Negative A 8948802959) MUCOUS (test code = Slight Negative LPF A 4575782538) SQ EPITH (test code = HPF 0798656388) Lab Interpretation (test Abnormal code = 17830-1) [facility] Metabolic Panel (NA, K, CL, CO2, GLUCOSE, BUN, CREATININE, CA)2020-05-26 23:56:22 Test Item Value Reference Range Interpretation Comments NA (test code = 140 mmol/L 135-145 9635367747) K (test code = 3.8 mmol/L 3.5-5.0 2767743954) CL (test code = 104 mmol/L 98-108 6548103728) CO2 TOTAL (test code 27 mmol/L 23-31 = 8906572179) AGAP (test code = 2-16 5247905997) BUN (test code = 15 mg/dL 7-23 9296616601) GLUCOSE (test code = 95 mg/dL 70-110 3861463879) CREATININE (test code 0.60 mg/dL 0.50-1.04 = 5744678814) CALCIUM (test code = 9.0 mg/dL 8.6-10.6 0974797358) eGFR (test code = mL/min/1.73m2 5235152614) ANTHONY (test code = ANTHONY) Association of [...] or urine or abnormalities in imaging tests). [facility] TexasHepatic Function Panel (ALB, T.PRO, BILI T, BU/BC, ALT, AST, ALK PHOS)2020-05-26 23:55:42 Test Item Value Reference Range Interpretation Comments TOTAL BILI (test code = 1413440241) 0.3 mg/dL 0.1-1.1 BILI UNCON (test code = 8260637980) 0.2 mg/dL 0.1-1.1 BILI CONJ (test code = 4663490169) 0.0 mg/dL 0.0-0.3 T PROTEIN (test code = 0511251332) 7.5 g/dL 6.3-8.2 ALBUMIN (test code = 8597747911) 4.5 g/dL 3.5-5.0 ALK PHOS (test code = 4229699541) 165 U/L 34-122 H ALTv (test code = 1742-6) 110 U/L 5-35 H AST(SGOT) (test code = 1327924483) 66 U/L 13-40 H Lab Interpretation (test code = Abnormal 77453-8) [facility] with Qfygybnmajyt8819-29-60 23:42:55 Test Item Value Reference Range Interpretation Comments WBC (test code = See_Comment [Automated 8890-2) message] The sy stem which generated this [...] RDW-SD (test code = 48.4 fL 39.0-49.9 29131-1) RDW-CV (test code = 13.6 % 12.0-15.5 788-0) PLT (test code = See_Comment [Automated 777-3) message] The sy stem which generated this result transmitted reference range : 166 - 358 10*3/ ?L. The reference r miky was not used to interpret this result as normal/abnormal . MPV (test code = 9.8 fL 9.5-12.9 14286-6) NRBC/100 WBC (test See_Comment [Automat ed code = 3321223441) message] The system which generated this result transmitted reference range : 0.0 - 10.0 /100 WBCs. The refer ence range was not u sed to interpret th is result as normal/abnormal . NRBC x10^3 (test code <0.01 See_Comment [Auto mated = 8842982358) message] The s ystem which generated this result transmitted reference range : 10*3/?L. The reference range was not used to interpret this result as normal/abnormal . GRAN MAT (NEUT) % 61.8 % (test code = 770-8) IMM GRAN % (test code 0.70 % = 1938713556) LYMPH % (test code = 27.3 % 736-9) MONO % (test code = 9.0 % 5905-5) EOS % (test code = 1.0 % 713-8) BASO % (test code = 0.2 % 706-2) GRAN MAT x10^3(ANC) 5.01 10*3/uL 1.88-7.09 (test code = 9194046987) IMM GRAN x10^3 (test 0.06 10*3/uL 0.00-0.06 code = 4403939532) LYMPH x10^3 (test code 2.22 10*3/uL 1.32-3.29 = 731-0) MONO x10^3 (test code 0.73 10*3/uL 0.33-0.92 = 742-7) EOS x10^3 (test code = 0.08 10*3/uL 0.03-0.39 711-2) BASO x10^3 (test code <0.03 0.01-0.07 = 704-7) Lab Interpretation Abnormal (test code = 40751-9) [facility]25[facility]57 Test Item Value Reference Range Interpretation Comments APPEARANCE (test code = Clear Clear 6327001825) COLOR (test code = Yellow Yellow 7685102796) PH (test code = 4.8-8.0 2364325876) SP GRAVITY (test code = >1.060 1.003-1.030 H 8253725716) GLU U QUAL (test code = Normal Normal 7418437367) BLOOD (test code = Negative Negative 8579855053) KETONES (test code = Negative Negative 6838570421) PROTEIN (test code = Negative Negative 2887-8) UROBILIN (test code = Normal Normal 7625239159) BILIRUBIN (test code = Negative Negative 2090459370) NITRITE (test code = Negative Negative 6159401137) LEUK MURRAY (test code = 25/uL Negative A 1828302351) RBC/HPF (test code = See_Comment [Autom ated message] 3800856879) The system [employer] generated this result transmitted ref erence range: 0 - 3 HP F. The reference range was not used to int erpret this result as normal/abnormal . WBC/HPF (test code = See_Comment [Autom ated message] 8984691220) The system [employer] generated this result transmitted ref erence range: 0 - 5 HP F. The reference range was not used to int erpret this result as normal/abnormal . BACTERIA (test code = Few Negative A 2376033839) MUCOUS (test code = Slight Negative LPF A 5377709322) SQ EPITH (test code = HPF 1602288877) Lab Interpretation (test Abnormal code = 33911-1) [facility] P[facility] W [id number] 17:38:50CT Abdomen and Pelvis with intravenous contrast. [...] eachmeasuring 2 to 3 mm in size. [facility] Function [facility] (ALB, T.PRO, BILI T, BU/BC, ALT, AST, ALK PHOS)2020-05-13 17:24:50 Test Item Value Reference Range Interpretation Comments TOTAL BILI (test code = 3316184423) 0.5 mg/dL 0.1-1.1 BILI UNCON (test code = 9268982513) 0.2 mg/dL 0.1-1.1 BILI CONJ (test code = 6760747924) 0.0 mg/dL 0.0-0.3 T PROTEIN (test code = 1416824812) 8.0 g/dL 6.3-8.2 ALBUMIN (test code = 4685850036) 4.7 g/dL 3.5-5.0 ALK PHOS (test code = 7055228187) 142 U/L 34-122 H ALTv (test code = 1742-6) 29 U/L 5-35 AST(SGOT) (test code = 0644317342) 41 U/L 13-40 H Lab Interpretation (test code = Abnormal 38405-2) [facility] (NA, K, CL, CO2, GLUCOSE, BUN, CREATININE, CA)2020-05-13 17:24:49 Test Item Value Reference Range Interpretation Comments NA (test code = 139 mmol/L 135-145 7406498907) K (test code = 3.9 mmol/L 3.5-5.0 1027522907) CL (test code = 111 mmol/L 98-108 H 2480584307) CO2 TOTAL (test code = 19 mmol/L 23-31 L 6514203639) AGAP (test code = 2-16 5495682840) BUN (test code = 15 mg/dL 7-23 1590325899) GLUCOSE (test code = 123 mg/dL 70-110 H 2659267018) CREATININE (test code = 0.83 mg/dL 0.50-1.04 2446564128) CALCIUM (test code = 9.5 mg/dL 8.6-10.6 6839273368) eGFR (test code = mL/min/1.73m2 5731697495) ANTHONY (test code = ANTHONY) Association of [...] tests). Lab Interpretation Abnormal (test code = 31043-4) [facility] TexasLipase [id number] 17:24:49 Test Item Value Reference Range Interpretation Comments LIPASE (test code = 2475222494) 25 U/L 0-220 Lab Interpretation (test code = Normal 68030-8) [facility] TexasCB with [id number] 17:06:22 Test Item Value Reference Range Interpretation [...] RDW-SD (test code = 46.4 fL 39.0-49.9 34878-1) RDW-CV (test code = 13.3 % 12.0-15.5 788-0) PLT (test code = See_Comment [Automated 777-3) message] The sy stem which generated this result transmitted reference range : 166 - 358 10*3/ ?L. The reference r miky was not used to interpret this result as normal/abnormal . MPV (test code = 10.4 fL 9.5-12.9 25949-7) NRBC/100 WBC (test See_Comment [Automat ed code = 6283632820) message] The system which generated this result transmitted reference range : 0.0 - 10.0 /100 WBCs. The refer ence range was not u sed to interpret th is result as normal/abnormal . NRBC x10^3 (test code <0.01 See_Comment [Auto mated = 7596576809) message] The s ystem which generated this result transmitted reference range : 10*3/?L. The reference range was not used to interpret this result as normal/abnormal . GRAN MAT (NEUT) % 69.6 % (test code = 770-8) IMM GRAN % (test code 0.40 % = 7372744445) LYMPH % (test code = 22.4 % 736-9) MONO % (test code = 7.1 % 5905-5) EOS % (test code = 0.4 % 713-8) BASO % (test code = 0.1 % 706-2) GRAN MAT x10^3(ANC) 5.65 10*3/uL 1.88-7.09 (test code = 9130746789) IMM GRAN x10^3 (test 0.03 10*3/uL 0.00-0.06 code = 6437362609) LYMPH x10^3 (test code 1.82 10*3/uL 1.32-3.29 = 731-0) MONO x10^3 (test code 0.58 10*3/uL 0.33-0.92 = 742-7) EOS x10^3 (test code = 0.03 10*3/uL 0.03-0.39 711-2) BASO x10^3 (test code <0.03 0.01-0.07 = 704-7) Lab Interpretation Abnormal (test code = 12902-8) [facility] ABDOMEN [id number] 18:12:20 Status post cholecystectomy. Mild extra hepatic [...] can been expected finding inthe post cholecystectomy setting.[facility] TexasXR CHEST 1 VW 2019-12-08 18:03:08Findings and Impression: Clear lungs. No pleural effusion or pneumothorax.Heart size is normal. No acute osseous abnormality. PORTABLE CHEST RADIOGRAPH History: RUQ pain Comparison: 12/25/2018 TECHNIQUE: AP view of the chest. [facility], Radiant Results Inft User - 12/08/2019 1:04 PM CDTPORTABLE CHEST RADIOGRAPHHistory: RUQ pain Comparison: 12/25/2018TECHNIQUE: AP view of the chest.IMPRESSIONFindings and Impression: Clear lungs. No pleural effusion or pneumothorax.Heart size is normal. No acute osseousabnormality.[facility] TexasCOMP. METABOLIC PANEL (25125)2019-12-08 17:36:00 Test Item Value Reference Range Interpretation Comments NA (test code = 139 mmol/L 135-145 7944431438) K (test code = 4.2 mmol/L 3.5-5 9837872677) CL (test code = 102 mmol/L 98-108 0413792509) CO2 TOTAL (test code = 27 mmol/L 23-31 5747255437) AGAP (test code = 2-16 0539672160) BUN (test code = 20 mg/dL 7-23 1959842851) GLUCOSE (test code = 105 mg/dL 70-110 5561908105) CREATININE (test code = 1.01 mg/dL 0.5-1.04 1478158037) TOTAL BILI (test code = 0.6 mg/dL 0.1-1.7 4859847172) CALCIUM (test code = 9.9 mg/dL 8.6-10.6 1926566352) T PROTEIN (test code = 8.5 g/dL 6.3-8.2 H 4891378946) ALBUMIN (test code = 4.5 g/dL 3.5-5 5244889518) ALK PHOS (test code = 118 U/L 34-122 0524747999) ALTv (test code = 32 U/L 5-35 1742-6) AST(SGOT) (test code = 39 U/L 13-40 1557224461) eGFR Calculation mL/min/1.73m2 (Non-) (test code = 2278524942) eGFR Calculation mL/min/1.73m2 () (test code = 9287624819) ANTHONY (test code = ANTHONY) Association of [...] tests). Lab Interpretation Abnormal (test code = 01883-6) [facility] TexasURINALYSIS2020-10-26 17:20:00 Test Item Value Reference Range Interpretation Comments APPEARANCE (test code = Hazy Clear A 7015735336) COLOR (test code = Yellow Yellow 2222594448) PH (test code = 4.8-8.0 1157735468) SP GRAVITY (test code = 1.003-1.030 H 5796662471) GLU U QUAL (test code = Normal Normal 1032309526) BLOOD (test code = Negative Negative 9141009879) KETONES (test code = Negative Negative 8138208245) PROTEIN (test code = 30 mg/dL Negative A 2887-8) UROBILIN (test code = Normal Normal 6438548997) BILIRUBIN (test code = Negative Negative 7976359699) NITRITE (test code = Negative Negative 3699126119) LEUK MURRAY (test code = 75/uL Negative A 6597558002) RBC/HPF (test code = See_Comment [Autom ated message] 5132818922) The system [employer] generated this result transmitted ref erence range: 0 - 3 HP F. The reference range was not used to int erpret this result as normal/abnormal . WBC/HPF (test code = See_Comment [Autom ated message] 2074474973) The system [employer] generated this result transmitted ref erence range: 0 - 5 HP F. The reference range was not used to int erpret this result as normal/abnormal . BACTERIA (test code = Negative Negative 6770599869) MUCOUS (test code = Slight Negative LPF A 6993000557) SQ EPITH (test code = HPF 4933594322) HYAL CAST (test code = See_Comment [Aut omated message] 6003010504) The system [employer] generated this result transmitted ref erence range: <=2 LPF. The reference range was not used to int erpret this result as normal/abnormal . Lab Interpretation (test Abnormal code = 74298-6) [facility]CB WITH [id number] 17:05:00 Test Item Value Reference Range Interpretation [...] RDW-SD (test code = 43.5 fL 39-49.9 55594-7) RDW-CV (test code = 11.9 % 12-15.5 L 788-0) PLT (test code = See_Comment [Automated 777-3) message] The sy stem which generated this result transmitted reference range : 166 - 358 10*3/ ?L. The reference r miky was not used to interpret this result as normal/abnormal . MPV (test code = 10.9 fL 9.5-12.9 95330-2) NRBC/100 WBC (test See_Comment [Automat ed code = 6356849793) message] The system which generated this result transmitted reference range : 0.0 - 10.0 /100 WBCs. The refer ence range was not u sed to interpret th is result as normal/abnormal . NRBC x10^3 (test code <0.01 See_Comment [Auto mated = 2076009208) message] The s ystem which generated this result transmitted reference range : 10*3/?L. The reference range was not used to interpret this result as normal/abnormal . GRAN MAT (NEUT) % 64.8 % (test code = 770-8) IMM GRAN % (test code 0.40 % = 0729564307) LYMPH % (test code = 27.0 % 736-9) MONO % (test code = 6.5 % 5905-5) EOS % (test code = 0.9 % 713-8) BASO % (test code = 0.4 % 706-2) GRAN MAT x10^3(ANC) 4.35 10*3/uL 1.88-7.09 (test code = 5836088064) IMM GRAN x10^3 (test 0.03 10*3/uL 0-0.06 code = 3757316104) LYMPH x10^3 (test code 1.82 10*3/uL 1.32-3.29 = 731-0) MONO x10^3 (test code 0.44 10*3/uL 0.33-0.92 = 742-7) EOS x10^3 (test code = 0.06 10*3/uL 0.03-0.39 711-2) BASO x10^3 (test code 0.03 10*3/uL 0.01-0.07 = 704-7) Lab Interpretation Abnormal (test code = 65925-1) [facility] TexasCT [facility]BDOMEN PELVIS WO [id number] 16:59:351. ?Nonobstructive left nephrolithiasis. 2. ?No radiographic [...] PELVISLiver: Hepatic dome is not fully within mbimu-ik-qkba. No focal he paticlesions identified within limits [...] PELVISLiver: Hepatic dome is not fully within jdoua-km-lpeq. No focal hepaticlesions identified within limits of [...] in the left lower lobe, thoughtto be unchanged.[facility] POCT [id number] 16:12:00 Test Item Value Reference Range Interpretation Comments POCT PREG (test code = 1605) negative On board controls acceptable with present C Line (test code = 3574) POCT PREG LOT # (test code = 3575) [id number] POCT PREG TEST DATE (test 05/12/2021 code = 3576) Lab Interpretation (test code = Normal 71970-9) [facility] TexasPOCT URINALYSIS, [id number] 15:17:00 Test Item Value Reference Range Interpretation [...] 3267) Lab Interpretation (test code Abnormal = 56792-1) [facility]PO[facility] URINAL[facility]IS, [id number] 15:17:00 Test Item Value Reference Range Interpretation [...] 3267) Lab Interpretation (test code Abnormal = 94801-3) [facility] TexasMR, BRAIN, [id number] 19:53:00With seizure protocolThin coronal cuts especially around [...] MDReport Verified Date/Time: 10/25/2018 19:53:41 Reading Location: [facility] C013V Neuro Reading Room EEG AWAKE AND [id number] 19:37:00For STAT EEG- after 5 PM weekdays, weekends and holidays, page the on-call EEG TechReason for exam:-& gt;altered mental statusDATE OF EXAMINATION: 10/25/18[facility] [place] NO: [id number] 10: R56.9CPT CODE: [id number] SUMMARY:This is a digital EEG recorded with 32 input channels on a [employer] system and then reviewed with bipolar and [...] seizure for the symptom(s) of interest. HEMOGLOBIN [id number] 14:02:00 Test Item Value Reference Range Interpretation Comments HEMOGLOBIN A1C (BEAKER) (test code = 5.6 % 4.3-6.1 368) TSH/FREE T4 IF [id number] 06:11:00 Test Item Value Reference Range Interpretation Comments THYROID STIMULATING HORMONE 3.63 uIU/mL 0.35-4.94 (BEAKER) (test code = 772) VITAMIN B12 AND [id number] 06:11:00 Test Item Value Reference Range Interpretation Comments VITAMIN B12 (BEAKER) (test code = 272 pg/mL 213-816 774) FOLATE (BEAKER) (test code = 362) 9.4 ng/mL >=7.0 [id number] 05:58:00 Test Item Value Reference Range Interpretation Comments PHOSPHORUS (BEAKER) (test code = 3.6 mg/dL 2.3-4.7 604) [id number] 05:58:00 Test Item Value Reference Range Interpretation Comments MAGNESIUM (BEAKER) (test code = 2.1 mg/dL 1.6-2.6 627) BASIC METABOLIC [id number] 05:58:00 Test Item Value Reference Range Interpretation [...] NOT APPLICABLE FOR DIALYSIS PATIEN TS. LIPID [id number] 05:58:00 Test Item Value Reference Range Interpretation [...] 130-159 High 160-189 Very High >=190HEPATIC FUNCTION [id number] 05:58:00 Test Item Value Reference Range Interpretation [...] (test code = 413) CT, BRAIN, WITHOUT [id number] 00:33:00FINAL REPORT EXAM: CT, BRAIN, WITHOUT CONTRAST [...] Salazar Verified Date/Time: 10/25/2018 00:33:20 Reading Location: [facility] C013V Neuro Reading Room POCT-GLUCOSE [id number] 23:26:00 Test Item Value Reference Range Interpretation Comments POC-GLUCOSE METER 77 mg/dL 70-110 TESTED AT [facility] 67 (BEAKER) (test code = [facility] [address] 1538) SCREEN, [id number] 18:06:00 Test Item Value Reference Range Interpretation Comments TEST URINE (BEAKER) (test Negative code = 583) RAPID DRUG SCREEN, [id number] 16:54:00 Test Item Value Reference Range Interpretation [...] situations. Chain of custody not maintained. Some jpai-vjk-txhipsv medications, as well as adulterants, may cause inaccurate results. Clinical correlation should be applied. A more comprehensivedrug screen or confirmation of a detected drug may be performed upon request.URINALYSIS W/ REFLEX URINE [id number] 15:45:00 Test Item Value Reference Range Interpretation [...] code = 1521) SOURCE(BEAKER) (test code = 5856) B-TYPE NATRIURETIC FACTOR (BNP)2018-10-24 15:41:00 Test Item Value Reference Range Interpretation Comments B-TYPE NATRIURETIC PEPTIDE (BEAKER) < pg/mL 0-100 (test code = 700) BASIC METABOLIC [id number] 15:41:00 Test Item Value Reference Range Interpretation [...] DATA TO CALCULA TE ESTIMATED GFR. TROPONIN [id number] 15:34:00 Test Item Value Reference Range Interpretation [...] acute neurological disease, and persistent tachyarrhythmia.HEPATIC FUNCTION [id number] 15:32:00 Test Item Value Reference Range Interpretation [...] (test code = 51 U/L 6-55 347) [id number] 15:27:00 Test Item Value Reference Range Interpretation Comments ETHANOL (BEAKER) (test code = 400) < mg/dL <=10 POCT-GLUCOSE [id number] 15:15:00 Test Item Value Reference Range Interpretation Comments POC-GLUCOSE METER 82 mg/dL 70-110 TESTED AT [facility] 6720 (BEAKER) (test code = [place] [address] 1538) RAD, CHEST, 1 VIEW, NON [id number] 15:13:00Reason for exam:->sobShould this be performed at the bedside?->YesFINAL REPORT INDICATION: sob COMPARISON: None TECHNIQUE: Single frontal view of the chest. FINDINGS: Lungs and pleura: Clear lungs. No effusion.Heart and mediastinum: Normal heart size. Unremarkable mediastinal contours.Osseous structures: No acute abnormality.Other: None. IMPRESSION: No acute intrathoracic abnormality. Signed: JR Escobar Robert MDReport Verified Date/Time: 10/24/2018 15:13:38 Reading Location: [facility] Radiology Reading Room CBC W/PLT COUNT & AUTO [id number] 15:06:00 Test Item Value Reference Range Interpretation [...] code = 2801) CT, SPINE, CERVICAL, WO [id number] 15:06:00Reason for exam:->r/o c- spine injuryIs the [...] Selby Verified Date/Time: 10/24/2018 15:06:41 Reading Location: [place] [address]V Neuro Reading Room , BRAIN/STROKE [id number] 14:38:00Reason for exam:->r/o cvaIs the patient ?->UnknownWhat [...] Shirley Verified Date/Time: 10/24/2018 14:38:49 Reading Location: [facility] C013W Consult Reading Room "
[2021-05-22 11:06] LABS: Absolute Lymphocytes (CBC) 1.4 K/uL (0.7-4.9); Hematocrit 31.9 % (36.0-45.0); Lymphocytes % 25.6 % (15.3-44.8); MPV 7.7 fL (7.6-11.3); RBC Red Blood Cell Count 3.65 M/uL (3.86-4.86)
[2021-05-22] MEDS ORDERED: ONDANSETRON 4 MG/2 ML VIAL ONE ×2 (11:06→12:46)
[2021-05-22] MEDS ORDERED: MORPHINE 4 MG/ML SYR ONE (11:06)
[2021-05-22] MEDS ORDERED: NA CHLORIDE 0.9% 1,000 ML ONE (11:07)
[2021-05-22 11:23] LABS: Albumin 3.9 g/dL (3.4-5.0); Bilirubin Total 0.4 mg/dL (0.2-1.0); Potassium 4.2 mmol/L (3.5-5.1); Protein, Total 8.2 g/dL (6.4-8.2)
--- NOTE | 2021-05-22 11:38 | RAD REPORT ---
EXAM DESCRIPTION: CTAbdomen Pelvis W Contrast - 05/22/2021 11:21 am CLINICAL HISTORY: ABD PAIN COMPARISON: <Comparisons> TECHNIQUE: CT of the abdomen and pelvis was performed. All CT scans are performed using dose optimization technique as appropriate and may include automated exposure control or mA/KV adjustment according to patient size. FINDINGS: Lower chest: Small cavitary nodule lingula is unchanged. Liver: No acute abnormality or suspicious lesions. Biliary: Mild intrahepatic biliary duct dilatation. Extrahepatic biliary ductal dilatation is unchang ed. Stomach: No significant focal abnormality. Duodenum: No significant focal abnormality. Pancreas: No significant abnormality. Spleen: No significant abnormality. Adrenal: No suspicious lesions. Kidney/ureter: No hydronephrosis. Bilateral nephrolithiasis. Retroperitoneum: No retroperitoneal adenopathy. Vascular: No aneurysm. Bowel: No significant focal abnormality. Normal appendix. Peritoneum: No ascites or free air. Bladder: Grossly unremarkable. Reproductive: No adnexal masses. Hysterectomy. Bones: No acute fracture. 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 Grade 1 anterolisthesis of L5 on S1. Other: n/a IMPRESSION: No acute intra-abdominal or pelvic finding. Normal appendix. Nonobstructive bilateral ne phrolithiasis.
[2021-05-22 12:38] LABS: Urine Blood Negative (Negative); Urine Glucose Negative (Negative); Urine Protein Negative (Negative)
[2021-05-22] MEDS ORDERED: METRONIDAZOLE 500mg IVPB 500 MG/100 ML BAG IV ONE (12:46)
[2021-05-22] MEDS ORDERED: METHYLPREDNISOLONE 125 MG INJ ONE (12:46)
[2021-05-22] MEDS ORDERED: HYDROMORPHONE HCL 1 MG/ML INJ ONE ×2 (12:46→13:49)
[2021-05-22 12:48] LABS: Urine Bacteria NONE SEEN /HPF (<20); Urine RBC NONE SEEN /HPF (NONE SEEN)
--- NOTE | 2021-05-22 13:25 | ER ---
Nurse's Notes [facility] Name: Mckenna Avila Age: 46 yrs Sex: Female : 1975 Arrival Date: 05/22/2021 Time: 10:36 Bed 17 Private MD: Roman Fallon T Diagnosis: Crohn's disease, unspecified, without complications;Abdominal pain, Generalized;Nausea with vomiting, unspecified Presentation: 05/22 10:44 Chief complaint: Patient states: N/V for a couple days. RLQ abd pain started this ll1 morning. Fever 101 last night. Coronavirus screen: Vaccine status: Patient reports being unvaccinated. Client denies travel out of the [place] in the last 14 days. nausea, vomiting. Client presents with at least one sign or symptom that may indicate coronavirus-19. Standard/surgical mask placed on the client. Ebola Screen: Patient denies travel to an Ebola-affected area in the 21 days before illness onset. Initial Sepsis Screen: Does the patient meet any 2 criteria? HR > 90 bpm. No. Patient's initial sepsis screen is negative. Does the patient have a suspected source of infection? Yes: Acute abdominal pain. Risk Assessment: Do you want to hurt yourself or someone else? Patient reports no desire to harm self or others. Onset of symptoms was May 20, 2021. 10:44 Method Of Arrival: Ambulatory ll1 10:44 Acuity: KEIKO 3 ll1 Triage Assessment: 10:46 General: Appears uncomfortable, Behavior is cooperative, appropriate for age. Pain: ll1 Complains of pain in right lower quadrant Quality of pain is described as aching. GI: Reports lower abdominal pain, nausea, vomiting. Historical: - Allergies: 10:44 Ciprofloxacin; ll1 10:44 Omnicef; ll1 - PMHx: 10:44 chrons disease; Kidney stones; Rheumatoid Arthritis; ll1 - PSHx: 10:44 hysterectomy; Cholecystectomy; ll1 - Immunization history:: Client reports having NOT received the Covid vaccine. - Social history:: Smoking status: Patient denies any tobacco usage or history of. Screenin:12 Abuse screen: Denies threats or abuse. Denies injuries from another. Nutritional ww screening: No deficits noted. Tuberculosis screening: No symptoms or risk factors identified. Fall Risk None identified. Assessment: 11:00 General: Appears in no apparent distress. uncomfortable, Behavior is cooperative, ww anxious. Pain: Complains of pain in right lower quadrant. Neuro: Level of Consciousness is awake, alert, obeys commands, Oriented to person, place, time, situation, Moves all extremities. Speech is normal. Cardiovascular: Capillary refill < 3 seconds Patient's skin is warm and dry. Chest pain is denied. Respiratory: Airway is patent Respiratory effort is even, unlabored, Respiratory pattern is regular, symmetrical. GI: Abdomen is round non-distended, Abd is soft X 4 quads Abdomen is tender to palpation in right lower quadrant Reports nausea, vomiting. EENT: No signs and/or symptoms were reported regarding the EENT system. Derm: Skin is intact, is healthy with good turgor. Musculoskeletal: Circulation, motion, and sensation intact. 12:28 Reassessment: Patient appears in no apparent distress at this time. No changes from previously documented assessment. Patient and/or family updated on plan of care and expected duration. Pain level reassessed. Patient is alert, oriented x 3, equal unlabored respirations, skin warm/dry/pink. 13:48 Reassessment: Patient appears in no apparent distress at this time. No changes from ww previously documented assessment. Patient and/or family updated on plan of care and expected duration. Pain level reassessed. Patient is alert, oriented x 3, equal unlabored respirations, skin warm/dry/pink. Vital Signs: 10:17 BP 165 / 98; Pulse 61; Resp 18; Pulse Ox 100% ; ww 10:44 BP 165 / 98; Pulse 94; Resp 17; Temp 97.4; Pulse Ox 100% ; Weight 72.57 kg; Height 5 ll1 ft. 7 in. (170.18 cm); Pain 9/10; 11:07 BP 150 / 46; Pulse 82; Resp 19; Pulse Ox 100% on R/A; ww 12:15 BP 156 / 84; Pulse 92; Resp 18; Pulse Ox 100% on R/A; ww 10:44 Body Mass Index 25.06 (72.57 kg, 170.18 cm) ll1 ED Course: 10:36 Patient arrived in ED. rg4 10:36 Roman Fallon MD is Private Physician. rg4 10:38 Andrés Bishop MD is Attending Physician. april 10:44 Arm band placed on Patient placed in an exam room, on a stretcher. ll1 10:46 Triage completed. ll1 10:49 Alethea Hernandez, RN is Primary Nurse. ww 11:12 Patient has correct armband on for positive identification. Bed in low position. Call ww light in reach. Side rails up X 1. Adult w/ patient. Pulse ox on. NIBP on. Warm blanket given. 11:12 Inserted saline lock: 20 gauge in right antecubital area, using aseptic technique. ww Blood collected. 11:23 CT Abd/Pelvis - IV Contrast Only In Process Unspecified. EDMS 13:23 Roman Fallon MD is Referral Physician. april 13:24 Fercho Adams MD is Referral Physician. [facility] 13:49 No provider procedures requiring assistance completed. ww 14:06 IV discontinued, bleeding controlled, No redness/swelling at site. Pressure dressing ww applied. Administered Medications: 11:06 Drug: NS 0.9% 1000 ml Route: IV; Rate: 1 bolus; Site: right antecubital; ww 11:08 Drug: morphine 4 mg Route: IVP; Site: right antecubital; ww 11:10 Drug: Zofran (Ondansetron) 4 mg Route: IVP; Site: right antecubital; ww 12:45 Drug: SOLU-Medrol (methylPrednisoLONE) 125 mg Route: IVP; Site: right antecubital; ww 12:47 Drug: Dilaudid (HYDROmorphone) 1 mg Route: IVP; Site: right antecubital; ww 12:50 Drug: Zofran (Ondansetron) 4 mg Route: IVP; Site: right antecubital; ww 12:52 Drug: Flagyl (metroNIDAZOLE) 500 mg Volume: 100 ml; Route: IVPB; Rate: 200 ml/hr; ww Infused Over: 30 mins; Site: right antecubital; 13:43 Drug: Phenergan (promethazine) 12.5 mg Route: IVP; Site: right antecubital; ww 14:05 Drug: Dilaudid (HYDROmorphone) 1 mg Route: IVP; Site: right antecubital; ww Outcome: 13:24 Discharge ordered by . [facility] 13:49 Discharged to home ambulatory, with family. ww 13:49 Condition: stable 13:49 Discharge instructions given to patient, family, Instructed on discharge instructions, follow up and referral plans. no drinking with medication, no driving heavy equipment, medication usage, safety practices, Demonstrated understanding of instructions, follow-up care, medications, Prescriptions given X 6 14:06 Patient left the ED. ww Signatures: Dispatcher [employer] Andrés Smith MD MD cha Garcia, Rubi rg4 Asha Sellers RN RN ll1 Alethea Hernandez RN RN ww
--- NOTE | 2021-05-22 13:25 | EDPHYS ---
Physician Documentation [facility] Name: Mckenna Avila Age: 46 yrs Sex: Female : 1975 Arrival Date: 05/22/2021 Time: 10:36 Bed 17 Private MD: Roman Fallon T ED Physician Andrés Bishop HPI: 05/22 10:45 This 46 yrs old Female presents to ER via Unassigned with complaints of april Abdominal Pain, Nausea/Vomiting. 10:45 The patient presents to the emergency department with nausea, vomiting, abdominal pain, april of the right lower quadrant. Onset: The symptoms/episode began/occurred last night. Possible causes: unknown. The symptoms are aggravated by movement, The symptoms are alleviated by nothing. Associated signs and symptoms: The patient has no apparent associated signs or symptoms. Severity of symptoms: At their worst the symptoms were moderate in the emergency department the symptoms are unchanged. The patient has not experienced similar symptoms in the past. Historical: - Allergies: 10:44 Ciprofloxacin; ll1 10:44 Omnicef; ll1 - PMHx: 10:44 chrons disease; Kidney stones; Rheumatoid Arthritis; ll1 - PSHx: 10:44 hysterectomy; Cholecystectomy; ll1 - Immunization history:: Client reports having NOT received the Covid vaccine. - Social history:: Smoking status: Patient denies any tobacco usage or history of. ROS: 10:46 Constitutional: Negative for fever, chills, and weight loss, Eyes: Negative for injury, april pain, redness, and discharge, ENT: Negative for injury, pain, and discharge, Neck: Negative for injury, pain, and swelling, Cardiovascular: Negative for chest pain, palpitations, and edema, Respiratory: Negative for shortness of breath, cough, wheezing, and pleuritic chest pain, Back: Negative for injury and pain, : Negative for injury, bleeding, discharge, and swelling, MS/Extremity: Negative for injury and deformity, Skin: Negative for injury, rash, and discoloration, Neuro: Negative for headache, weakness, numbness, tingling, and seizure, Psych: Negative for depression, anxiety, suicide ideation, homicidal ideation, and hallucinations, Allergy/Immunology: Negative for hives, rash, and allergies, Endocrine: Negative for neck swelling, polydipsia, polyuria, polyphagia, and marked weight changes, Hematologic/Lymphatic: Negative for swollen nodes, abnormal bleeding, and unusual bruising. 10:46 Abdomen/GI: Positive for abdominal pain, nausea and vomiting, of the right lower quadrant. Exam: 10:46 Constitutional: This is a well developed, well nourished patient who is awake, alert, april and in no acute distress. Head/Face: Normocephalic, atraumatic. Eyes: Pupils equal round and reactive to light, extra-ocular motions intact. Lids and lashes normal. Conjunctiva and sclera are non-icteric and not injected. Cornea within normal limits. Periorbital areas with no swelling, redness, or edema. ENT: Nares patent. No nasal discharge, no septal abnormalities noted. Tympanic membranes are normal and external auditory canals are clear. Oropharynx with no redness, swelling, or masses, exudates, or evidence of obstruction, uvula midline. Mucous membranes moist. Neck: Trachea midline, no thyromegaly or masses palpated, and no cervical lymphadenopathy. Supple, full range of motion without nuchal rigidity, or vertebral point tenderness. No Meningismus. Chest/axilla: Normal chest wall appearance and motion. Nontender with no deformity. No lesions are appreciated. Cardiovascular: Regular rate and rhythm with a normal S1 and S2. No gallops, murmurs, or rubs. Normal PMI, no JVD. No pulse deficits. Respiratory: Lungs have equal breath sounds bilaterally, clear to auscultation and percussion. No rales, rhonchi or wheezes noted. No increased work of breathing, no retractions or nasal flaring. Back: No spinal tenderness. No costovertebral tenderness. Full range of motion. Skin: Warm, dry with normal turgor. Normal color with no rashes, no lesions, and no evidence of cellulitis. MS/ Extremity: Pulses equal, no cyanosis. Neurovascular intact. Full, normal range of motion. Neuro: Awake and alert, GCS 15, oriented to person, place, time, and situation. Cranial nerves II-XII grossly intact. Motor strength 5/5 in all extremities. Sensory grossly intact. Cerebellar exam normal. Normal gait. Psych: Awake, alert, with orientation to person, place and time. Behavior, mood, and affect are within normal limits. 10:46 Abdomen/GI: Inspection: abdomen appears normal, Bowel sounds: normal, Palpation: moderate abdominal tenderness, in the right lower quadrant, Liver: no appreciated palpable abnormalities, Hernia: not appreciated. Vital Signs: 10:17 BP 165 / 98; Pulse 61; Resp 18; Pulse Ox 100% ; ww 10:44 BP 165 / 98; Pulse 94; Resp 17; Temp 97.4; Pulse Ox 100% ; Weight 72.57 kg; Height 5 ll1 ft. 7 in. (170.18 cm); Pain 9/10; 11:07 BP 150 / 46; Pulse 82; Resp 19; Pulse Ox 100% on R/A; ww 12:15 BP 156 / 84; Pulse 92; Resp 18; Pulse Ox 100% on R/A; ww 10:44 Body Mass Index 25.06 (72.57 kg, 170.18 cm) ll1 MDM: 10:39 Patient medically screened. april 10:48 Differential diagnosis: Nonspecific abd pain, gastritis, pancreatitis, diverticulitis, april viral Infection, bacterial infection. Data reviewed: vital signs, nurses notes, lab test result(s), EKG, radiologic studies. Data interpreted: air sampling and monitoring: rate is 94 beats/min, rhythm is regular, Pulse oximetry: on room air is 100 %. Test interpretation: by ED physician or midlevel provider: ECG, plain radiologic studies. Counseling: I had a detailed discussion with the patient and/or guardian regarding: the historical points, exam findings, and any diagnostic results supporting the discharge/admit diagnosis, lab results, radiology results. 05/22 10:45 Order name: CBC with Diff; Complete Time: 11:36 april 05/22 10:45 Order name: CMP; Complete Time: 11:36 april 05/22 10:45 Order name: Lipase; Complete Time: 11:36 april 05/22 10:45 Order name: Urine Microscopic Only; Complete Time: 13:14 april 05/22 12:39 Order name: Urine Dipstick-Ancillary; Complete Time: 13:14 EDIL 05/22 12:51 Order name: Urine --Ancillary (enter results); Complete Time: 13:14 eb 05/22 10:45 Order name: CT Abd/Pelvis - IV Contrast Only; Complete Time: 12:35 april 05/22 10:45 Order name: IV Saline Lock; Complete Time: 11:10 april 05/22 10:45 Order name: Labs collected and sent; Complete Time: 11:10 [facility] 05/22 10:45 Order name: Urine Dipstick-Ancillary (obtain specimen); Complete Time: 12:52 [facility] 05/22 10:45 Order name: Urine Test (obtain specimen); Complete Time: 12:52 april Administered Medications: 11:06 Drug: NS 0.9% 1000 ml Route: IV; Rate: 1 bolus; Site: right antecubital; ww 11:08 Drug: morphine 4 mg Route: IVP; Site: right antecubital; ww 11:10 Drug: Zofran (Ondansetron) 4 mg Route: IVP; Site: right antecubital; ww 12:45 Drug: SOLU-Medrol (methylPrednisoLONE) 125 mg Route: IVP; Site: right antecubital; ww 12:47 Drug: Dilaudid (HYDROmorphone) 1 mg Route: IVP; Site: right antecubital; ww 12:50 Drug: Zofran (Ondansetron) 4 mg Route: IVP; Site: right antecubital; ww 12:52 Drug: Flagyl (metroNIDAZOLE) 500 mg Volume: 100 ml; Route: IVPB; Rate: 200 ml/hr; ww Infused Over: 30 mins; Site: right antecubital; 13:43 Drug: Phenergan (promethazine) 12.5 mg Route: IVP; Site: right antecubital; ww 14:05 Drug: Dilaudid (HYDROmorphone) 1 mg Route: IVP; Site: right antecubital; ww Disposition Summary: 05/22/21 13:24 Discharge Ordered Location: Home april Problem: new april Symptoms: have improved april Condition: Stable april Diagnosis - Crohn's disease, unspecified, without complications april - Abdominal pain, Generalized april - Nausea with vomiting, unspecified april Followup: april - With: Roman Fallon MD - When: 1 - 2 days - Reason: Recheck today's complaints, Continuance of care, Re-evaluation by your physician Followup: april - With: Fercho Adams MD - When: 1 - 2 days - Reason: Recheck today's complaints, Re-evaluation by your physician Discharge Instructions: - Discharge Summary Sheet april - Abdominal Pain, Adult paril - Nausea and Vomiting, Adult april - Nausea, Adult april - Nausea and Vomiting, Adult, [id number] april - Crohn's Disease [facility] - Abdominal Pain, Adult, [id number] [facility] Forms: - Medication Reconciliation Form [facility] - Thank You Letter april - Antibiotic Education [facility] - Prescription Opioid Use [facility] Prescriptions: - Flagyl 500 mg Oral Tablet - take 1 tablet by ORAL route every 8 hours for 7 days; 21 tablet; Refills: 0, [facility] Product Selection Permitted - Pepcid 20 mg Oral Tablet - take 1 tablet by ORAL route every 12 hours for 10 days; 20 tablet; Refills: 0, [facility] Product Selection Permitted - Zofran 4 mg Oral Tablet - take 1 tablet by ORAL route every 12 hours As needed; 20 tablet; Refills: 0, [facility] Product Selection Permitted - promethazine 25 mg Oral Tablet - take 1 tablet by ORAL route every 6 hours As needed; 20 tablet; Refills: 0, [facility] Product Selection Permitted - dicyclomine 20 mg Oral Tablet - take 1 tablet by ORAL route 4 times per day; 28 tablet; Refills: 0, Product [facility] Selection Permitted - Medrol (Bucky) 4 mg Oral Tablets, Dose Pack - take 1 tablet by ORAL route as directed - follow package instructions; 1 april packet; Refills: 0, Product Selection Permitted Signatures: Dispatcher [employer] Andrés Smith MD MD cha Lewis, Lynsay, RN RN ll1 Alethea Hernandez RN RN ww
[2021-05-22] MEDS ORDERED: PROMETHAZINE INJ 25 MG/ML AMP ONE (13:39)
[2021-05-22 14:13] VITALS: TEMP 97.4; O2SAT 100
[2021-05-22 14:15] VITALS: BP 156/84
== END 2021-05-22 14:06 | disposition home or self-care (01) ==
LOC: ER 10:34
DX: K50.90 Crohn's disease, unspecified, without complications (principal); R11.2 Nausea with vomiting, unspecified; Z87.442 Personal history of urinary calculi; Z88.1 Allergy status to other antibiotic agents
CPT/HCPCS: 85025; 36415; 81025; 82565; 83690; 80053; 74177; 96375; 96374; 99284; Q9967; J2550; J1170 ×2; J7030; J2930; J2405 ×2; 81003; 81015

== ENCOUNTER 2021-05-27 09:43 | Emergency (ER) | payer BC ==
--- OUTSIDE RECORDS SUMMARY | 2021-05-27 10:00 | XMS REPORT | Continuity of Care Document ---
:1975 Author Organization [facility] t Address [address] [place] [address] Care Team Providers Name Role Phone Yariel Fallon Primary Care Physician Delphine Hernandez Attending Clinician Unavailable Gopal Fisher MD Attending Clinician Delphine Redman RN Attending Clinician SANDRITA Attending Clinician Unavailable Niurka Eagle MD Attending Clinician Sandrita MENJIVAR Attending Clinician Quan Kennedy MD Attending Clinician [phone] Pob, Lab Main Attending Clinician Unavailable Debi [...] Clinician JUAN M Attending Clinician Unavailable Vishnu GLUE WHEEL OPERATOR, G Attending Clinician Aba DO, J Attending Clinician Provider, Urgent Care Attending Clinician Unavailable Rolanda PRESSLEY, A Attending Clinician Sadia ORANTES Attending Clinician Unavailable Gramm PAD TUFTER, A Attending Clinician Rohit PAC, S Attending Clinician Juan M MENJIVAR Attending Clinician 2, Lab Attending Clinician Unavailable LORA GARCIA Attending Clinician Unavailable SANDRITA Admitting Clinician Unavailable Sandrita MENJIVAR Admitting Clinician Jude MENJIVAR Admitting Clinician Pool MENJIVAR Admitting Clinician JILLIAN Admitting Clinician Unavailable Payers Payer Name Policy Type Policy Number Effective Date Expiration Date S ource [employer] [place] - [id number] 2012 00:00:00 OUT OF STATE Problems Condition Condition Condition Status Onset Resolution Last Treating Co mments Source Name Details Category Date Date Treatment Clinician Date Hypokalemi Hypokalemi Disease Active 2020-02 U trinityers a a 0-25 ity of 00:00: [place] [address] Medical Branch Hypotensio Hypotensio Disease Active 2020-02 U carolyn n n 0-24 ity of 00:: [place] [address] Medical Branch Obesity Obesity Disease Active 2020-02 Univers (BMI (BMI 0-24 ity of 30-39.9) 30-39.9) 00:00: [place] [facility] 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 6-02 ity of 00:00: [place] [address] Medical Branch Status Status Disease Active Univers migrainosu migrainosu 5-15 it y of s s 00:00: [place] [address] Medical Branch Pyelonephr Pyelonephr Disease Active U [...] INGREDI 4-06 ity of 00:00: [place] 00 [facility] Branch Cipro Adverse Active Hives, [facility] Reaction burning [facility] Social History Social Habit Start Date Stop Date Quantity Comments Source History of Snuff User University of tobacco use [facility] History SDOH University o f Alcohol Frequency [facility] edical [place] History [facility] University o f Alcohol Std [place] Medical Drinks Branch History [facility] o f Alcohol Binge [place] Medic al [place] Exposure to Yes [facility] SARS-CoV-2 [facility] (event) [place] Alcohol intake 2020-12-05 2020-12-05 0 /d University of 00:00:00 00:00:00 [facility] Tobacco use and 2020-07-13 2020-07-13 Never used Universit y of exposure 00:00:00 00:00:00 [facility] Alcohol Comment 2015-06-22 2015-06-22 No alcohol use Unive rsity of 00:00:00 00:00:00 per pt [facility] Sex Ass[birth year] At [birth year] Universit y of 00:00:00 00:00:00 [facility] Smoking Status Start Date Stop Date Source Never smoker [facility] Medications Ordered Filled Start Stop Current Ordering Indication Dosage Frequency Signature Comments Components Source Medication Medication Date Date Medication? Clinician (SIG) Name Name predniSONE 2020-02 Yes 20mg Take 20 mg U nivers 10 mg -02 by mouth ity of tablet 03:45: daily. [place] [address] Medical [place] Hydrocodone 2020-02 Yes 1{tbl} Take 1 Un [...] 02 by mouth ity of 03:45: daily. [address] Branch methocarbam 2020-02 Yes 500mg Take 500 U nivers oL 500 mg -02 mg by ity of tablet 03:45: mouth at [place] [address] bedtime. Medical Branch dicyclomine 2020-02 Yes 20mg Take 20 mg Univers 20 mg 02 by mouth 3 ity of tablet 03:45: (three) [place] 04 times Medical daily. Branch famotidine 2020-02 Yes 40mg Take 40 mg U nivers 40 mg 02 by mouth ity of tablet 03:45: at [place] [address] bedtime. Medical Branch albuterol 2020-02 Yes 2{puff} [...] by mouth ity of tablet 03:45: daily. [place] [address] Medical Branch Hydrocodone 2020-02 Yes 1{tbl} Take [...] 02 by mouth ity of 03:45: daily. [place] 04 Medical Branch methocarbam 2020-02 Yes 500mg Take 500 U nivers oL 500 mg 1-02 mg by ity of tablet 03:45: mouth at [place] 04 bedtime. Medical Branch dicyclomine 2020-02 Yes 20mg Take 20 mg Univers 20 mg 02 by mouth 3 ity of tablet 03:45: (three) [place] 04 times Medical daily. Branch famotidine 2020-02 Yes 40mg Take 40 mg U nivers 40 mg 02 by mouth ity of tablet 03:45: at [place] 04 bedtime. Medical Branch albuterol 2020-02 Yes [...] Medical capsule meals. Branch furosemide 2020-02 Yes [id number] 20mg Take 1 U nivers 20 mg 1-01 tablet by ity of tablet 00:00: mouth [place] 00 every Medical Sunday, Branch Sunday and Sunday. furosemide 2020-02 Yes [id number] 20mg Take 1 U nivers 20 mg 1-01 tablet by ity of tablet 00:00: mouth [place] 00 every Medical Sunday, Branch Sunday and Sunday. furosemide 2020-02 Yes [id number] 20mg Take 1 U nivers 20 mg 1-01 tablet by ity of tablet 00:00: mouth [place] 00 every Medical Sunday, Branch Sunday and Sunday. metoprolol 2020-02 Yes 25mg Take 25 mg U nivers succinate 0-31 by mouth ity of (TOPROL XL 16:03: daily. [place] ORAL) Medical Branch inFLIXimab 2020-02 Yes 840mg Inject 840 Univers (REMICADE) 0-31 mg ity of 100 mg 16:03: intravenou [place] injection 38 sly every Medic al 6 (six) Branch weeks. predniSONE 2020-02 Yes 20mg Take 20 mg U nivers 10 mg 0-31 by mouth ity of tablet 16:03: daily. [place] [address] Medical Branch Hydrocodone 2020-02 Yes 1{tbl} Take 1 Un matt -Acetaminop 0-31 tablet by ity of hen 7.5-300 16:03: mouth 3 [place] as mg tablet 38 (three) Medical times Branch daily. tiZANidine 2020-02 Yes 4mg Take 4 mg Un matt 4 mg tablet 0-31 by mouth 3 it y of 16:03: (three) [place] [address] times Medical daily. Branch foLIC acid 2020-02 Yes 3mg Take 3 mg Un matt 1 mg tablet 0-31 by mouth ity of 16:03: daily. [place] [address] Medical Branch methocarbam 2020-02 Yes 500mg Take 500 U nivers oL 500 mg 0-31 mg by ity of tablet 16:03: mouth at [place] [address] bedtime. Medical Branch dicyclomine 2020-02 Yes 20mg Take 20 mg Univers 20 mg 0-31 by mouth 3 ity of tablet 16:03: (three) [place] [address] times Medical daily. Branch famotidine 2020-02 Yes 40mg Take 40 mg U nivers 40 mg 0-31 by mouth ity of tablet 16:03: at [place] [address] bedtime. Medical Branch albuterol 2020-02 Yes 2{puff} [...] weekly. Medical Branch NaCl 0.9% 2020-02- No [id number] 1000mg Infuse Univers (NS) PgBk 0-31 11-11 1,000 mg ity o f 50 mL with 00:00: 05:59 every 12 [place] ceFEPIme 1 00 :00 (twelve) Medic al gram SolR hours for Branc h 1,000 mg 10 days. vancomycin/ 2020-02- No [id number] 1500mg 1,500 mg Univers 0.9 % sod 0-31 11-11 by IV ity of chloride 00:00: 05:59 [place]fusion [place] (VANCOMYCIN 00 :00 route Medical 1500 MG IN every 24 Branc h NS 500 ML) (twenty-fo 1.5 ur) hours gram/500 mL for 10 Soln days. NaCl 0.9% 2020-02 No [id number] 1000mg Infuse Univers (NS) PgBk 11 1,000 mg ity o f 50 mL with 00:00: 05:59 every 12 [place] ceFEPIme 1 00 :00 (twelve) Medic al gram SolR hours for Branc h 1,000 mg 10 days. vancomycin/ 2020-02 No [id number] 1500mg 1,500 mg Univers 0.9 % sod [...] Medical Fri Branch 12/10/20 at 1830, Routine
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
Reas on for Anti-Infec tive: Documented Infection< br>Documen karly Infection Site: Skin / Soft Tissue
Duration of Therapy: Other (see Comments) potassium 2020-02- No 30mmol 30 mmol, U nivers phosphate 0- IV ity of 30 mmol in 13:15: 14:16 Piggyback, [place] NaCl 0.9% 00 :00 ONCE, 1 Medical [...] dose [place] mg 00 :55 on [facility] Medical 12/09/20 Branch at 2000, Until Discontinu ed, Routine potassium 2020-02 No 15mmol 15 mmol, U nivers phosphate 12-09 IV ity of 15 mmol in 15:45: 16:34 Piggyback, [place] NaCl 0.9% 00 :00 ONCE, 1 Medical (NS) 150 mL dose, On Bran ch piggyback [facility] 12/09/20 at 1045, 150 mL predniSONE 2020-02 Yes 30mg 30 mg, Unive rs (DELTASONE) 0 Oral, ity of tablet 30 15:00: DAILY, [place] mg 00 First dose Medical on [facility] 12/09/20 at 1000, Until Discontinu ed, Routine calcitrioL 2020-02 Yes .5ug 0.5 mcg, Uni vers (ROCALTROL) Oral, ity of capsule 0.5 15:00: DAILY, [place] mcg 00 First dose Medical on [facility] 12/09/20 at 1000, Until Discontinu ed, Routine KCL 2020-02 No 40meq 40 mEq, Univers (KLOR-CON 12-09 Oral, Q4H, ity of M20) tablet 15:00: 16:35 2 doses, [place] 40 mEq 00 :00 First dose Medical (after Branch last modificati on) on [facility] 12/09/20 at 1000, Last dose on [facility] 12/09/20 at 1200, Routine hydrocortis 2020-02- No 60mg 60 mg, IV Univers one sod 12-09 Piggyback, ity o f succ 13:43: 14:47 DAILY, [place] (CORTEF) 60 13 :30 First dose Me dical mg in NaCl (after Branch 0.9% (NS) last piggyback modificati on) on [facility] 12/09/20 at 0900, Until Discontinu ed, Administer over 30 Minutes, 60 mL iopamidol 2020-02- No [id number] 120mL 120 mL, Univers (ISOVUE 12-08 Intravenou ity o f 370-500 mL) 17:23: 17:24 s, ONCE, 1 [place] injection 00 :00 dose, On Medica l 120 mL [facility] 12/08/20 at 1245, Routine KCL 2020-02- No 20meq 20 mEq, Univers (KLOR-CON 0- Oral, ity of M20) tablet 14:00: 14:47 DAILY, [place] 20 mEq 00 :30 First dose Medical on Sun12/08/20 at 0900, Until Discontinu ed, Routine hydrocortis 2020-02- No 60mg 60 mg, IV Univers one sod 12-09 Piggyback, ity o f succ 01:00: 13:43 Q12H, [place] (CORTEF) 60 00 :20 First dose Me dical mg in NaCl (after Branch 0.9% (NS) last piggyback modificati on) on Sun12/07/20 at 2000, Until Discontinu ed, Administer over 30 Minutes, 60 mL lidocaine 2020-02 Yes 5mL 5 mL, Univers 1% (PF) 0- Subcutaneo ity of (XYLOCAINE) 18:44: us, PRN, [place] injection 5 15 Starting Medi bernadine mL on [place] 12/07/20 at 1344, Until Discontinu ed, Routine, Local anesthesia NaCl 0.9% 2020-02 Yes 10mL 10 mL, Univer s (NS) 0-26 Slow IV ity of injection 17:49: Push, PRN, [place] 10 mL 04 Starting Medical on [place] 12/07/20 at 1249, Until Discontinu ed, Routine, line maintenanc e KCL 2020-02- No 20meq 20 mEq, Univers (KLOR-CON 0- 10- Oral, ity of M20) tablet 14:45: 13:52 ONCE, 1 [place] 20 mEq 00 :00 dose, On Medical [place] 12/07/20 at 0945, Routine diphenoxyla 2020-02 Yes [...] First dose [place] mg 00 on [facility] Medical 12/06/20 Branch at 2100, Until Discontinu ed, Routine Nitrofurant 2020-02- No 100mg 100 mg, U nivers oin&Nit. 0-07 12- Oral, BID, ity of Macrocryst 01:00: 16:54 First dose [place] (MACROBID) 00 :09 on [facility] Medical 100 mg 12/06/20 [place] capsule 100 at 2000, mg Until Discontinu ed, Routine
Reason for Anti-Infec tive: Documented Infection< br>Documen karly Infection Site: Urine
D uration of Therapy: 7 days lactobacill 2020-02 Yes .5mg 0.5 mg, Uni vers us 0-25 Oral, TID, ity of acidophilus 19:00: First dose [place] tablet 0.5 00 on [facility] Medical mg 12/06/20 Branch at 1400, Until Discontinu ed, Routine diphenoxyla 2020-02- No 1{tbl} 1 tablet, Univers te-atropine 0-12-07 Oral, TID, i ty of (LOMOTIL) 19:00: 02:34 First dose [place] 2.5-0.025 00 :00 (after Medical mg tablet 1 last Branch tablet modificati on) on [facility] 12/06/20 at 1400, Until Discontinu ed, Routine vancomycin 2020-02- No 15mg/kg 1,250 mg Univers 1250 mg in 012-09 (rounded ity of NS 250 mL 18:30: 23:35 from ,305 [place] RTU IV 00 :38 mg = 15 Medical [place] mg/kg ?87 Branc h 1,250 mg kg), IV [place], Q12H ABX, First dose (after last modificati on) on [facility] 12/06/20 at 1330, Until Discontinu ed, Administer over 90 Minutes
Reason for Anti-Infec tive: Empiric Therapy for Suspected Infection< br>Empiric Therapy Site: Blood
D uration of therapy: 7 days metoprolol 2020-02 Yes 25mg 25 mg, Unive rs succinate 0-25 Oral, ity of XL (TOPROL 14:00: DAILY, [place] XL) tablet 00 First dose Med ical 25 mg on [facility] Branch 12/06/20 at 0900, Until Discontinu ed foLIC acid 2020-02 Yes 3mg 3 mg, Univer s (FOLATE) 0-25 Oral, ity of tablet 3 mg 14:00: DAILY, [place] 00 First dose Medical on [facility] Branch 12/06/20 at 0900, Until Discontinu ed, Routine diphenoxyla 2020-02- No 1{tbl} 1 tablet, Univers te-atropine 0-25 10-25 Oral, ity of (LOMOTIL) 14:00: 17:51 DAILY, [place] 2.5-0.025 00 :45 First dose Medi bernadine mg tablet 1 on [facility] tablet 12/06/20 at 0900, Until Discontinu ed, Routine gabapentin 2020-02 Yes 600mg 600 mg, Uni vers (NEURONTIN) 0-25 Oral, TID, it y of tablet 600 13:00: First dose [place] mg 00 on [facility] 12/06/20 Branch at 0800, Until Discontinu ed, Routine hydrocortis 2020-02 No 60mg 60 mg, IV Univers one sod 0-25 -26 Piggy[place], ity o f succ 11:00: 22:27 Q8H, First [place] (CORTEF) 60 00 :12 dose on Medic al mg in NaCl [facility] Branch 0.9% (NS) 12/06/20 piggyback at 0600, Until Discontinu ed, Administer over 30 Minutes, 60 mL HYDROcodone 2020-02 Yes 1{tbl} 1 tablet, Univers -acetaminop 0-25 Oral, ity of hen (NORCO) 09:21: Q6HPRN, [place] 10-325 mg 08 Starting Medica l tablet 1 on [facility] Branch tablet 12/06/20 at 0421, Until Discontinu ed, Routine, Pain (scale 7-10) alum-mag 2020-02 Yes 30mL 30 mL, Univers hydroxide-s 0-25 Oral, ity of imeth 09:20: Q6HPRN, [place] (MAALOX 42 Starting Medical PLUS / on [...] IV [place], Q12H ABX, First dose on [place] 12/05/20 at 2330, Until Discontinu ed, Administer over 90 Minutes
Reason for Anti-Infec tive: Empiric Therapy for Suspected Infection< br>Empiric Therapy Site: Blood
D uration of therapy: 7 days heparin 2020-02 Yes 5000U 5,000 Univers (porcine) 0-25 Units, ity of injection 03:00: Subcutaneo [place] 5,000 Units 00 us, Q8H, [facility] First dose Branch on [place] 12/05/20 at 2200, Until Discontinu ed, Routine busPIRone 2020-02 Yes 20mg 20 mg, Univer s (BUSPAR) 0-25 Oral, TID, ity o f tablet 20 02:30: First dose [place] mg 00 (after Medical last Branch modificati on) on [place] 12/05/20 at 2130, Until Discontinu ed, Routine morpHINE 2020-02- No 2mg 2 mg, Slow Un matt injection 2 0-25 10-25 IV Push, ity of mg 02:26: 09:22 Q4HPRN, [place] 54 :17 Starting Medical on [place] [...] :00 dose, On Medical (ISO-OSM) [facility] RTU IV 12/05/20 infusion 2 at 2014, g Routine potassium 2020-02 No 10meq 10 mEq, IV Univers chloride in 0-25 10-25 [place], i ty of water 10 01:00: 03:07 Q1H, 4 [place] mEq/100 mL 00 :43 doses, Medical RTU 10 mEq First dose Bra nch on [place] 12/05/20 at 1999, Last dose on [place] 12/05/20 at 2300, Administer over 60 Minutes, 100 mL KCL 2020-02 No 40meq 40 mEq, Univers (KLOR-CON 0-25 10-25 Oral, Q1H, ity of M20) tablet 01:00: 02:59 2 doses, [place] 40 mEq 00 :00 First dose Medical on [place] Branch 12/05/20 at 2000, Last dose on [place] 12/05/20 at 2100, Routine NaCl 0.9% 2020-02- No 1000mL at 150 Uni vers (NS) IV 0-24 10-26 mL/hr, ity of infusion 22:45: 20:37 Intravenou [place] 1,000 mL 00 :12 s, [facility] Branch , Starting on [place] 12/05/20 at 1745, Until Sun12/07/20 at 1537, Routine piperacilli 2020-02 No 3.375g 3.375 g, Univers n-tazobacta 0-24 10-24 IV ity of m (ZOSYN) 21:45: 21:08 [place], [place] 3.375 g in 00 :00 ONCE, 1 Medica l NaCl 0.9% dose, On Branch (NS) 100 mL [place] MINI-BAG 12/05/20 at 1645, Administer over 30 [...] IV Push, ity of (PF)) 21:29: Q6HPRN, [place] injection 4 30 Starting Medi bernadine mg on [facility] 12/05/20 at 1629, Until Discontinu ed, Routine, Nausea and Vomiting (N/V) acetaminoph 2020-02 Yes 650mg 650 mg, Un matt en 0-24 Oral, ity of (TYLENOL) 21:29: Q6HPRN, [place] tablet 650 19 Starting Medic al mg on [facility] 12/05/20 at 1629, Until Discontinu ed, Routine, Pain (scale 1-3), Temp > 38.5 C dicyclomine 2020-02- No 20mg Take 20 mg Univers 20 mg 0-24 10-24 by mouth 3 ity of tablet 21:23: 00:00 (three) [place] 29 :00 times Medical daily. Branch erenumab-ao [...] dose Me dical 400 mg on [place] 07/15/20 at 0900, Until Discontinu ed, Routine busPIRone 2020-0 Yes 20mg 20 mg, Univer s (BUSPAR) 6-03 Oral, BID, ity o f tablet 20 01:00: First dose [place] mg 00 on Wed [facility] 07/14/20 at Branch 2000, Until Discontinu ed, Routine magnesium 2020-0 Yes [id number] 400mg Take 400 Univers oxide 420 6-03 mg by ity of mg Tab 00:00: mouth [place] 00 daily. [facility] magnesium 2020-0 Yes [id number] 400mg Take 400 Univers oxide 420 6-03 mg by ity of mg Tab 00:00: mouth [place] 00 daily. [facility] magnesium 2020-0 Yes [id number] 400mg Take 400 Univers oxide 420 6-03 mg by ity of mg Tab 00:00: mouth [place] 00 daily. [facility] magnesium 2020-0 Yes [id number] 400mg Take 400 Univers oxide 420 6-03 mg by ity of mg Tab 00:00: mouth [place] 00 daily. [facility] magnesium 2020-0 Yes [id number] 400mg Take 400 Univers oxide 420 6-03 mg by ity of mg Tab 00:00: mouth [place] 00 daily. [facility] magnesium 2020-0 Yes [id number] 400mg Take 400 Univers oxide 420 6-03 mg by ity of mg Tab 00:00: mouth [place] 00 daily. Medical [place] magnesium 2020-0 Yes [id number] 400mg Take 400 Univers oxide 420 6-03 mg by ity of mg Tab 00:00: mouth [place] 00 daily. Medical [place] magnesium 2020-0 Yes [id number] 400mg Take 400 Univers oxide 420 6-03 mg by ity of mg Tab 00:00: mouth [place] 00 daily. [facility] magnesium 2020-0 Yes [id number] 400mg Take 400 Univers oxide 420 6-03 mg by ity of mg Tab 00:00: mouth [place] 00 daily. [facility] magnesium 2020-0 Yes [id number] 400mg Take 400 Univers oxide 420 6-03 mg by ity of mg Tab 00:00: mouth [place] 00 daily. [facility] magnesium 2020-0 Yes [id number] 400mg Take 400 Univers oxide 420 6-03 mg by ity of mg Tab 00:00: mouth [place] 00 daily. Medical Branch magnesium 2020-0 Yes [id number] 400mg Take 400 Univers oxide 420 6-03 mg by ity of mg Tab 00:00: mouth [place] 00 daily. Medical Branch magnesium 2020-0 Yes [id number] 400mg Take 400 Univers oxide 420 6-03 mg by ity of mg Tab 00:00: mouth [place] 00 daily. Medical Branch magnesium 2020-0 Yes [id number] 400mg Take 400 Univers oxide 420 6-03 mg by ity of mg Tab 00:00: mouth [place] 00 daily. Medical Branch magnesium 2020-0 2021- No [id number] 400mg Take 400 Univers oxide 420 6-03 [...] dose on [place] 07/15/20 at 0600, Routine
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 Medical Branch riboflavin, Yes [id number] 400mg Take 400 Univers vitamin B2, 6-02 mg by ity of 400 mg Tab 00:00: mouth [place] 00 daily. Medical Branch amitriptyli Yes [id number] 25mg Take 1 Univers ne 25 mg 6-02 tablet by ity of tablet 00:00: mouth at [place] [address] bedtime. Medical Branch riboflavin, Yes [id number] 400mg Take 400 Univers vitamin B2, 6-02 mg by ity of 400 mg Tab 00:00: mouth [place] 00 daily. Medical Branch amitriptyli Yes [id number] 25mg Take 1 Univers ne 25 mg 6-02 tablet by ity of tablet 00:00: mouth at [place] 00 bedtime. Medical Branch riboflavin, Yes [id number] 400mg Take 400 Univers vitamin B2, 6-02 mg by ity of 400 mg Tab 00:00: mouth [place] 00 daily. Medical Branch amitriptyli Yes [id number] 25mg Take 1 Univers ne 25 mg 6-02 tablet by ity of tablet 00:00: mouth at [place] bedtime. Medical Branch riboflavin, Yes [id number] 400mg Take 400 Univers vitamin B2, 6-02 mg by ity of 400 mg Tab 00:00: mouth [place] 00 daily. Medical Branch amitriptyli Yes [id number] 25mg Take 1 Univers ne 25 mg 6-02 tablet by ity of tablet 00:00: mouth at [place] bedtime. Medical Branch riboflavin, Yes [id number] 400mg Take 400 Univers vitamin B2, 6-02 mg by ity of 400 mg Tab 00:00: mouth [place] 00 daily. Medical Branch amitriptyli Yes [id number] 25mg Take 1 Univers ne 25 mg 6-02 tablet by ity of tablet 00:00: mouth at [place] bedtime. Medical Branch riboflavin, Yes [id number] 400mg Take 400 Univers vitamin B2, 6-02 mg by ity of 400 mg Tab 00:00: mouth daily. Medical Branch amitriptyli Yes [id number] 25mg Take 1 Univers ne 25 mg 6-02 tablet by ity of tablet 00:00: mouth at [place] bedtime. Medical Branch riboflavin, Yes [id number] 400mg Take 400 Univers vitamin B2, 6-02 mg by ity of 400 mg Tab 00:00: mouth [place] daily. Medical Branch amitriptyli Yes [id number] 25mg Take 1 Univers ne 25 mg 6-02 tablet by ity of tablet 00:00: mouth at [place] bedtime. Medical Branch riboflavin, Yes [id number] 400mg Take 400 Univers vitamin B2, 6-02 mg by ity of 400 mg Tab 00:00: mouth [place] 00 daily. Medical Branch amitriptyli Yes [id number] 25mg Take 1 Univers ne 25 mg 6-02 tablet by ity of tablet 00:00: mouth at [place] bedtime. Medical Branch riboflavin, Yes [id number] 400mg Take 400 Univers vitamin B2, 6-02 mg by ity of 400 mg Tab 00:00: mouth [place] 00 daily. Medical Branch amitriptyli Yes [id number] 25mg Take 1 Univers ne 25 mg 6-02 tablet by ity of tablet 00:00: mouth at [place] 00 bedtime. Medical Branch riboflavin, Yes [id number] 400mg Take 400 Univers vitamin B2, 6-02 mg by ity of 400 mg Tab 00:00: mouth [place] 00 daily. Medical Branch amitriptyli Yes [id number] 25mg Take 1 Univers ne 25 mg 6-02 tablet by ity of tablet 00:00: mouth at [place] 00 bedtime. Medical Branch riboflavin, Yes [id number] 400mg Take 400 Univers vitamin B2, 6-02 mg by ity of 400 mg Tab 00:00: mouth [place] 00 daily. Medical Branch amitriptyli Yes [id number] 25mg Take 1 Univers ne 25 mg 6-02 tablet by ity of tablet 00:00: mouth at [place] 00 bedtime. Medical Branch riboflavin, Yes [id number] 400mg Take 400 Univers vitamin B2, 6-02 mg by ity of 400 mg Tab 00:00: mouth [place] 00 daily. Medical Branch amitriptyli Yes [id number] 25mg Take 1 Univers ne 25 mg 6-02 tablet by ity of tablet 00:00: mouth at [place] 00 bedtime. Medical Branch riboflavin, Yes [id number] 400mg Take 400 Univers vitamin B2, 6-02 mg by ity of 400 mg Tab 00:00: mouth [place] 00 daily. Medical Branch amitriptyli Yes [id number] 25mg Take 1 Univers ne 25 mg 6-02 tablet by ity of tablet 00:00: mouth at [place] 00 bedtime. Medical Branch riboflavin, Yes [id number] 400mg Take 400 Univers vitamin B2, 6-02 mg by ity of 400 mg Tab 00:00: mouth [place] 00 daily. Medical Branch amitriptyli 2020- No [id number] 25mg Take 1 Univers ne 25 mg 6-02 10-24 tablet by ity o f tablet 00:00: 00:00 mouth at [place] 00 :00 bedtime. Medical Branch riboflavin, 2020- No [id number] 400mg Take 400 Univers vitamin B2, 6-02 10-24 mg by ity of 400 mg Tab 00:00: 00:00 mouth [place] 00 :00 daily. Medical Branch metoprolol 2020- No 5mg 5 mg, Slow Univers (LOPRESSOR) 07-07 IV Push, ity of injection 5 04:15: 03:20 ONCE, 1 [place] :[place] dose, [facility] 07/06/20 at Branch 2315, GIGI ondansetron 2020- No 4mg 4 mg, Slow Univers (ZOFRAN 07-07 IV Push, ity of (PF)) 04:15: 03:20 ONCE, 1 [place] injection 4 00 :00 dose, [facility] Med ical mg 07/06/20 at Branch 2315, GIGI morpHINE 2020- No 4mg 4 mg, Slow Un matt injection 4 07-07 IV Push, ity of mg 04:15: 03:20 ONCE, 1 [place] 00 :00 dose, [facility] 07/06/20 at Branch 2315, STAT LORazepam 2020- No 2mg 2 mg, Univer s (ATIVAN) 07-07 Intramuscu ity of injection 2 03:30: 02:26 lar, ONCE, [place] mg 00 :00 1 dose, Medical [facility] 07/06/20 at 2230, STAT cloNIDine 2020-2020- No .2mg 0.2 mg, Univ ers (CATAPRES) 07-07 Oral, ity of tablet 0.2 03:00: 01:58 ONCE, 1 [place] mg 00 :00 dose, [facility] 07/06/20 at Branch 2200, STAT ondansetron 2020- No 4mg 4 mg, Univ ers (ZOFRAN-ODT 07-07 Oral, ity of ) 02:00: 01:10 ONCE, 1 [place] disintegrat 00 :00 dose, [facility] Med ical ing tablet 07/06/20 at [facility] 4 mg 2100, Routine butorphanol 2020- No 2mg 2 mg, Univ ers (STADOL) 07-07 Intramuscu ity of injection 2 02:00: 01:10 lar, ONCE [place] mg 00 :00 NOW, 1 Medical dose, [facility] 07/06/20 at 2100, Routine ondansetron 2021-0 Yes [id number] 4mg Take 1 Univers (ZOFRAN) 4 5-25 tablet by ity of mg tablet 00:00: mouth [place] 00 every 8 Medical (eight) Branch hours as needed for Nausea and Vomiting (N/V). ondansetron 2020-0 Yes [id number] 4mg Take 1 Univers (ZOFRAN) 4 5-25 tablet by ity of mg tablet 00:00: mouth [place] 00 every 8 Medical (eight) Branch hours as needed for Nausea and Vomiting (N/V). ondansetron 2020-0 Yes [id number] 4mg Take 1 Univers (ZOFRAN) 4 5-25 tablet by ity of mg tablet 00:00: mouth [place] 00 every 8 Medical (eight) Branch hours as needed for Nausea and Vomiting (N/V). ondansetron 2020-0 Yes [id number] 4mg Take 1 Univers (ZOFRAN) 4 5-25 tablet by ity of mg tablet 00:00: mouth [place] 00 every 8 Medical (eight) Branch hours as needed for Nausea and Vomiting (N/V). ondansetron 2020-0 Yes [id number] 4mg Take 1 Univers (ZOFRAN) 4 5-25 tablet by ity of mg tablet 00:00: mouth [place] 00 every 8 Medical (eight) Branch hours as needed for Nausea and Vomiting (N/V). ondansetron 2020-0 Yes [id number] 4mg Take 1 [facility] (ZOFRAN) 4 5-25 tablet by ity of mg tablet 00:00: mouth [place] 00 every 8 Medical (eight) Branch hours as needed for Nausea and Vomiting (N/V). ondansetron 2020-0 Yes [id number] 4mg Take 1 Univers (ZOFRAN) 4 5-25 tablet by ity of mg tablet 00:00: mouth [place] 00 every 8 Medical (eight) Branch hours as needed for Nausea and Vomiting (N/V). ondansetron 1-0 Yes [id number] 4mg Take 1 Univers (ZOFRAN) 4 5-25 tablet by ity of mg tablet 00:00: mouth [place] 00 every 8 Medical (eight) Branch hours as needed for Nausea and Vomiting (N/V). ondansetron 2020-0 Yes [id number] 4mg Take 1 Univers (ZOFRAN) 4 5-25 tablet by ity of mg tablet 00:00: mouth [place] 00 every 8 Medical (eight) Branch hours as needed for Nausea and Vomiting (N/V). ondansetron 2020-0 Yes [id number] 4mg Take 1 Univers (ZOFRAN) 4 5-25 tablet by ity of mg tablet 00:00: mouth [place] 00 every 8 Medical (eight) Branch hours as needed for Nausea and Vomiting (N/V). ondansetron 2020-0 Yes [id number] 4mg Take 1 Univers (ZOFRAN) 4 5-25 tablet by ity of mg tablet 00:00: mouth [place] 00 every 8 Medical (eight) Branch hours as needed for Nausea and Vomiting (N/V). ondansetron 2020-0 Yes [id number] 4mg Take 1 Univers (ZOFRAN) 4 5-25 tablet by ity of mg tablet 00:00: mouth [place] 00 every 8 Medical (eight) Branch hours as needed for Nausea and Vomiting (N/V). ondansetron 2020-0 Yes [id number] 4mg Take 1 Univers (ZOFRAN) 4 5-25 tablet by ity of mg tablet 00:00: mouth [place] 00 every 8 Medical (eight) Branch hours as needed for Nausea and Vomiting (N/V). ondansetron 2020-0 Yes [id number] 4mg Take 1 Univers (ZOFRAN) 4 5-25 tablet by ity of mg tablet 00:00: mouth [place] 00 every 8 Medical (eight) Branch hours as needed for Nausea and Vomiting (N/V). ondansetron 2020-0 Yes [id number] 4mg Take 1 Univers (ZOFRAN) 4 5-25 tablet by ity of mg tablet 00:00: mouth [place] 00 every 8 Medical (eight) Branch hours as needed for Nausea and Vomiting (N/V). ondansetron 1-0 Yes [id number] 4mg Take 1 Univers (ZOFRAN) 4 5-25 tablet by ity of mg tablet 00:00: mouth [place] 00 every 8 Medical (eight) Branch hours as needed for Nausea and Vomiting (N/V). ondansetron 2020-0 Yes [id number] 4mg Take 1 Univers (ZOFRAN) 4 5-25 tablet by ity of mg tablet 00:00: mouth [place] 00 every 8 Medical (eight) Branch hours as needed for Nausea and Vomiting (N/V). ondansetron Yes [id number] 4mg Take 1 Univers (ZOFRAN) 4 5-25 tablet by ity of mg tablet 00:00: mouth [place] 00 every 8 Medical (eight) Branch hours as needed for Nausea and Vomiting (N/V). ondansetron Yes [id number] 4mg Take 1 Univers (ZOFRAN) 4 5-25 tablet by ity of mg tablet 00:00: mouth [place] 00 every 8 Medical (eight) Branch hours as needed for Nausea and Vomiting (N/V). ondansetron Yes [id number] 4mg Take 1 Univers (ZOFRAN) 4 5-25 tablet by ity of mg tablet 00:00: mouth [place] 00 every 8 Medical (eight) Branch hours as needed for Nausea and Vomiting (N/V). ondansetron Yes [id number] 4mg Take 1 Univers (ZOFRAN) 4 5-25 tablet by ity of mg tablet 00:00: mouth [place] 00 every 8 Medical (eight) Branch hours as needed for Nausea and Vomiting (N/V). ondansetron 2020- No [id number] 4mg Take 1 [facility] (ZOFRAN) 4 5-25 [...] 1 [place] mg 00 :00 dose, [facility] 07/04/20 at Branch 1615, Routine proMETHazin 2020- No 25mg 25 mg, IV Univers e 07-04 Piggyback, ity of (PHENERGAN) 21:15: 21:15 ONCE, 1 [place] 25 mg in 00 :00 dose, [place] [facility] NaCl 0.9% 07/04/20 at Bran ch (NS) 50 mL 1615, 50 piggyback mL butorphanol 2020- No 1mg 1 mg, IV U nivers (STADOL) 07-04 Push, ity of injection 1 19:30: 19:00 ONCE, 1 [place] mg 00 :00 dose, [facility] 07/04/20 at Branch 1430, Routine LORazepam 2020- No 1mg 1 mg, Slow U nivers (ATIVAN) 07-04 IV Push, ity of injection 1 19:30: 19:00 ONCE, 1 [place] mg 00 :00 dose, [facility] 07/04/20 at Branch 1430, STAT NaCl 0.9% 2020- No 1000mL at 999 Uni vers (NS) IV 07-04 mL/hr, IV ity of infusion 19:30: 20:53 Infusion, [place] 1,000 mL 00 :00 ONCE, 1 Medical dose, [facility] 07/04/20 at 1430, Routine dexamethaso 2020- No 10mg 10 mg, IV Univers ne 07-04 Push, ity of (DECADRON 19:30: 19:02 ONCE, 1 [place] PHOSPH[place] 00 :00 dose, [facility] bernadine injection 07/04/20 at [facility] 10 mg 1430, STAT butalbital- 2020- No 2{tbl} 2 tablet, Univers acetaminoph 07-04 Oral, ity of en-caff 19:30: 18:40 ONCE, 1 [place] (ESGIC) 00 :00 dose, [facility] 50-325-40 07/04/20 at Bran ch mg tablet 2 1430, tablet Routine butalbital- Yes [id number] 1{tbl} Take 1 Univers acetaminoph 5-23 tablet by ity of en-caff 00:00: mouth [place] 50-325-40 00 every 6 Medical mg tablet (six) Branch hours as needed for Pain (scale 7-10). butalbital- Yes [id number] 1{tbl} Take 1 [facility] acetaminoph 5-23 tablet by ity of en-caff 00:00: mouth [place] 50-325-40 00 every 6 Medical mg tablet (six) Branch hours as needed for Pain (scale 7-10). butalbital- Yes [id number] 1{tbl} Take 1 [facility] acetaminoph 5-23 tablet by ity of en-caff 00:00: mouth [place] 50-325-40 00 every 6 Medical mg tablet (six) Branch hours as needed for Pain (scale 7-10). butalbital- Yes [id number] 1{tbl} Take 1 [facility] acetaminoph 5-23 tablet by ity of en-caff 00:00: mouth [place] 50-325-40 00 every 6 Medical mg tablet (six) Branch hours as needed for Pain (scale 7-10). butalbital- Yes [id number] 1{tbl} Take 1 [facility] acetaminoph 5-23 tablet by ity of en-caff 00:00: mouth [place] 50-325-40 00 every 6 Medical mg tablet (six) Branch hours as needed for Pain (scale 7-10). butalbital- Yes [id number] 1{tbl} Take 1 [facility] acetaminoph 5-23 tablet by ity of en-caff 00:00: mouth [place] 50-325-40 00 every 6 Medical mg tablet (six) Branch hours as needed for Pain (scale 7-10). butalbital- Yes [id number] 1{tbl} Take 1 [facility] acetaminoph 5-23 tablet by ity of en-caff 00:00: mouth [place] 50-325-40 00 every 6 Medical mg tablet (six) Branch hours as needed for Pain (scale 7-10). butalbital Yes [id number] 1{tbl} Take 1 [facility] acetaminoph 5-23 tablet by ity of en-caff 00:00: mouth [place] 50-325-40 00 every 6 Medical mg tablet (six) Branch hours as needed for Pain (scale 7-10). butalbital Yes [id number] 1{tbl} Take 1 [facility] acetaminoph 5-23 tablet by ity of en-caff 00:00: mouth [place] 50-325-40 00 every 6 Medical mg tablet (six) Branch hours as needed for Pain (scale 7-10). butalbital- Yes [id number] 1{tbl} Take 1 [facility] acetaminoph 5-23 tablet by ity of en-caff 00:00: mouth [place] 50-325-40 00 every 6 Medical mg tablet (six) Branch hours as needed for Pain (scale 7-10). butalbital Yes [id number] 1{tbl} Take 1 [facility] acetaminoph 5-23 tablet by ity of en-caff 00:00: mouth [place] 50-325-40 00 every 6 Medical mg tablet (six) Branch hours as needed for Pain (scale 7-10). butalbital Yes [id number] 1{tbl} Take 1 [facility] acetaminoph 5-23 tablet by ity of en-caff 00:00: mouth [place] 50-325-40 00 every 6 Medical mg tablet (six) Branch hours as needed for Pain (scale 7-10). butalbital Yes [id number] 1{tbl} Take 1 [facility] acetaminoph 5-23 tablet by ity of en-caff 00:00: mouth [place] 50-325-40 00 every 6 Medical mg tablet (six) Branch hours as needed for Pain (scale 7-10). butalbital- Yes [id number] 1{tbl} Take 1 [facility] acetaminoph 5-23 tablet by ity of en-caff 00:00: mouth [place] 50-325-40 00 every 6 Medical mg tablet (six) Branch hours as needed for Pain (scale 7-10). butalbital- Yes [id number] 1{tbl} Take 1 [facility] acetaminoph 5-23 tablet by ity of en-caff 00:00: mouth [place] 50-325-40 00 every 6 Medical mg tablet (six) Branch hours as needed for Pain (scale 7-10). butalbital- Yes [id number] 1{tbl} Take 1 [facility] acetaminoph 5-23 tablet by ity of en-caff 00:00: mouth [place] 50-325-40 00 every 6 Medical mg tablet (six) Branch hours as needed for Pain (scale 7-10). butalbital- Yes [id number] 1{tbl} Take 1 [facility] acetaminoph 5-23 tablet by ity of en-caff 00:00: mouth [place] 50-325-40 00 every 6 Medical mg tablet (six) Branch hours as needed for Pain (scale 7-10). butalbital- Yes [id number] 1{tbl} Take 1 [facility] acetaminoph 5-23 tablet by ity of en-caff 00:00: mouth [place] 50-325-40 00 every 6 Medical mg tablet (six) Branch hours as needed for Pain (scale 7-10). butalbital- Yes [id number] 1{tbl} Take 1 [facility] acetaminoph 5-23 tablet by ity of en-caff 00:00: mouth [place] 50-325-40 00 every 6 Medical mg tablet (six) Branch hours as needed for Pain (scale 7-10). butalbital- Yes [id number] 1{tbl} Take 1 [facility] acetaminoph 5-23 tablet by ity of en-caff 00:00: mouth [place] 50-325-40 00 every 6 Medical mg tablet (six) Branch hours as needed for Pain (scale 7-10). butalbital- Yes [id number] 1{tbl} Take 1 [facility] acetaminoph 5-23 tablet by ity of en-caff 00:00: mouth [place] 50-325-40 00 every 6 Medical mg tablet (six) Branch hours as needed for Pain (scale 7-10). butalbital- Yes [id number] 1{tbl} Take 1 [facility] acetaminoph 5-23 tablet by ity of en-caff 00:00: mouth [place] 50-325-40 00 every 6 Medical mg tablet (six) Branch hours as needed for Pain (scale 7-10). butalbital- 2020- No [id number] 1{tbl} Take 1 Univers acetaminoph 5-23 10-24 [...] mouth 3 ity of tablet 00:16: (three) [place] 46 times Medical daily. Branch erenumab-ao 0 [...] 1 [place] mg 00 :00 dose, [facility] 06/28/20 at Branch 1645, Routine loperamide 2020- No 2mg 2 mg, Unive rs (IMODIUM 06-28 Oral, ity of A-D) 21:30: 22:26 ONCE, 1 [place] capsule 2 00 :00 dose, Mon Medic al mg 06/28/20 at Branch 1630, Routine LORazepam Yes 1mg 1 mg, Univers (ATIVAN) 06-28 Oral, ity of tablet 1 mg 20:40: QHSPRN, 2 [place] 49 doses, Medical Starting [facility] 06/28/20 at 1540, Until Discontinu ed, Routine, Anxiety butorphanol 2020- No 1mg 1 mg, IV U nivers (STADOL) 06-28 Push, ity of injection 1 15:35: 20:07 ONCE, 1 [place] mg 00 :00 dose, [facility] 06/28/20 at Branch 1045, Routine proMETHazin Yes 25mg 25 mg, IV U nivers e 06-28 Piggyback, ity of (PHENERGAN) 13:15: Q6HPRN, [place] 25 mg in 38 Starting Medical NaCl 0.9% [facility] (NS) 50 mL 06/28/20 at IV 0815, piggyback Until Discontinu ed, Routine, Nausea and Vomiting (N/V) hydrOXYzine Yes 10mg 10 mg, Univ ers (ATARAX) 06-28 Oral, ity of tablet 10 06:58: Q6HPRN, [place] mg 54 Starting Medical [facility] 06/28/20 at 0158, Until Discontinu ed, Routine, Anxiety melatonin Yes 3mg 3 mg, Univers (MELATIN) 06-28 Oral, QHS, ity of tablet 3 mg 02:00: First dose [place] 00 on [facility] 06/27/20 at Branch 2100, Until Discontinu ed, Routine butalbital- 2021-0 Yes 1{tbl} 1 tablet, Univers acetaminoph 5-17 Oral, ity of en-caff 01:06: Q6HPRN, [place] (ESGIC) 14 Starting Medical 50-325-40 [place] [facility] [...] by ity of tablet 00:00: mouth 3 [place] (three) Medical times Branch daily. cyclobenzap 2020-0 Yes 5mg Take 1 Univ ers rine 5 mg 5-17 tablet by ity o f tablet 00:00: mouth 3 [place] 00 (three) Medical times Branch daily. busPIRone 2020-0 Yes 20mg Take 2 Univer s 10 mg 5-17 tablets by ity of tablet 00:00: mouth 3 [place] 00 (three) Medical times Branch daily. LORazepam 1 2020-0 Yes 1mg Take 1 Univ ers mg tablet 5-17 tablet by ity o f 00:00: mouth at [place] 00 bedtime as Medical needed for Branch [...] by ity of tablet 00:00: mouth 3 [place] 00 (three) Medical times Branch daily. cyclobenzap [...] by ity o f 00:00: mouth at [place] 00 bedtime as Medical needed for Branch [...] by ity o f 00:00: mouth at [place] 00 bedtime as Medical needed for Branch [...] by ity o f 00:00: mouth at [place] 00 bedtime as Medical needed for Branch [...] by ity o f 00:00: mouth at [place] 00 bedtime as Medical needed for Branch [...] 4 04 :50 Starting Medi bernadine mg [place] [facility] 06/27/20 at 1625, Until 06/28/20 at [...] Q6HPRN, [place] mg 19 Starting Medical [place] [facility] 06/27/20 at 1049, Until Discontinu ed, Routine, Pain (scale 4-6) pantoprazol 0 Yes 40mg 40 mg, Univ ers e 5-16 Oral, ity of (PROTONIX) 14:00: DAILY, [place] EC tablet 00 First dose Medi bernadine 40 mg on [facility] 06/27/20 at 0900, Until Discontinu ed, Routine losartan Yes 50mg 50 mg, Univers (COZAAR) 5-16 Oral, ity of tablet 50 14:00: DAILY, [place] mg 00 First dose Medical on [facility] 06/27/20 at 0900, Until Discontinu ed, Routine metoprolol Yes 25mg 25 mg, Unive rs succinate 5-16 Oral, ity of XL (TOPROL 14:00: DAILY, [place] XL) tablet 00 First dose Med ical 25 mg on [facility] 06/27/20 at 0900, Until Discontinu ed azaTHIOprin Yes 150mg 150 mg, Un matt e (IMURAN) 5-16 Oral, ity of tablet 150 14:00: DAILY, [place] mg 00 First dose Medical on [facility] 06/27/20 at 0900, Until Discontinu ed, Routine heparin Yes 5000U 5,000 Univers (porcine) 5-16 Units, ity of injection 13:00: Subcutaneo [place] 5,000 Units 00 us, Q12H, Med ical First dose Branch on [place] 06/27/20 at 0800, Until Discontinu ed, Routine dicyclomine Yes 20mg 20 mg, Univ ers (BENTYL) 5-16 Oral, TID, ity o f tablet 20 13:00: First dose [place] mg 00 on [facility] 06/27/20 at Branch 0800, Until Discontinu ed, Routine gabapentin 0 2020- No 400mg 400 mg, Un matt (NEURONTIN) 06-27 05-17 Oral, TID, i ty of capsule 400 13:00: 20:40 First dose [place] mg 00 :15 on [facility] 06/27/20 at Branch 0800, Until Discontinu ed, Routine morpHINE 2020-0 2020- No 2mg 2 mg, Slow Un matt injection 2 06-27 05-16 IV Push, ity of mg 10:00: 09:07 ONCE, 1 [place] 00 :00 dose, [facility] 06/27/20 at Branch 0500, GIGI LORazepam 2020-0 2020- No 2mg 2 mg, Univer s (ATIVAN) 06-27 Oral, ity of tablet 2 mg 06:00: 08:58 ONCE, 1 [place] 00 :00 dose, [facility] 06/27/20 at Branch 0100, Routine gabapentin 2020- No 600mg 600 mg, Un matt (NEURONTIN) 06-27 Oral, ity of tablet 600 05:00: 04:03 ONCE, 1 [place] mg 00 :00 dose, [facility] 06/27/20 at Branch 0000, GIGI magnesium 2020- No 2g 2 g, IV Univ ers sulfate in 06-27 Piggyback, it y of water 2 04:15: 06:10 ONCE, 1 [place] gram/50 mL 00 :00 dose, Sat Medi bernadine (4 %) 06/26/20 at [place] infusion 2 2315, GIGI g valproate 2020- No 500mg 500 mg, IV Univers (DEPACON) 06-27 Piggyback, ity of 500 mg in 04:15: 04:54 ONCE, 1 [place] D5W 00 :00 dose, [facility] Medical piggyback 06/26/20 at [facility] ch 2315, 100 mL LORazepam 2020- No 1mg 1 mg, Univer s (ATIVAN) 06-27 Oral, QHS, ity of tablet 1 mg 04:00: 01:27 2 doses, [place] 00 :00 First dose Medical (after Branch last modificati on) on [facility] 06/26/20 at 2300, Last dose on [place] 06/27/20 at 2100, Routine proMETHazin 2020- No [...] inFLIXimab 04 :00 Medical 100 mg SolR [place] acetaminoph Yes 650mg 650 mg, Un matt [...] 06-27 IV ity of (PHENERGAN) 01:15: 00:18 [facility], [place] 12.5 mg in 00 :00 ONCE, 1 Medica l NaCl 0.9% dose, Sat Branc h (NS) 50 mL 06/26/20 at piggyback 2014, 50 mL morpHINE 2020- No 4mg 4 mg, Slow Un matt injection 4 06-27 IV Push, ity of mg 01:15: 00:18 ONCE, 1 [place] 00 :00 dose, Sat Medical 06/26/20 at Branch 2014, STAT iopamidol 2020- No [id number] 100mL 100 mL, Univers (ISOVUE 06-26 Intravenou [...] ty of en-caff 22:15: 21:26 NOW, 1 [place] (ESGIC) 00 :00 dose, Sat Medical 50-325-40 06/26/20 at Bran ch mg tablet 1 171, GIGI tablet nitroglycer 2020- No .4mg 0.4 mg, Un matt in 06-26 Sublingual ity of (NITROSTAT) 22:15: 21:26 , ONCE, 1 [place] sublingual 00 :00 dose, Sat Medi bernadine tablet 0.4 06/26/20 at Bra nch mg 171, GIGI magnesium 2020- No 2g 2 g, IV Univ ers sulfate in 06-26 Piggyback, it y of water 2 22:15: 23:46 ONCE, 1 [place] gram/50 mL 00 :00 dose, Sat Medi [...] IV ity of (BENADRYL) 21:30: 20:31 Push, [place] injection 00 :00 ONCE, 1 Medical 25 mg dose, Sat Branch 06/26/20 at 1630, STAT metoclopram 2020- No 10mg 10 mg, Uni vers marilyn HCl 06-26 Slow IV ity of (REGLAN) 21:30: 20:30 Push, [place] injection 00 :00 ONCE, 1 Medical 10 mg dose, Sat [place] 06/26/20 at 1630, GIGI ketorolac 2020- No 30mg 30 mg, Unive rs (TORADOL) 06-26-15 Slow IV ity of injection 21:30: 20:31 Push, [place] 30 mg 00 :00 ONCE, 1 Medical dose, Sat [place] 06/26/20 at 1630, GIGI
Fa culty member [...] [place] R) 140 47 Medical mg/mL AtIn [place] phenazopyri 2020- No 200mg 200 mg, U nivers dine 06-02- Oral, ity of (PYRIDIUM) 04:15: 03:34 ONCE, 1 [place] tablet 200 00 :00 dose, Tue Medi bernadine mg 06/01/20 at Branch 2315, Routine pantoprazol 2020- No [id number] 40mg Take 1 Univers e 40 mg EC 06-02 tablet by ity of tablet 00:00: 04:59 mouth [place] 00 :00 daily for Medical 30 days. [place] pantoprazol 2020- No [id number] 40mg Take 1 Univers e 40 mg EC 06-02 tablet by ity of tablet 00:00: 04:59 mouth [place] 00 :00 daily for Medical 30 days. [place] pantoprazol 2020- No [id number] 40mg Take 1 Univers e 40 mg EC 06-02 tablet by ity of tablet 00:00: 04:59 mouth [place] 00 :00 daily for Medical 30 days. [place] HYDROcodone 2020- No [id number] 1{tbl} Take 1 U nivers -acetaminop 06-02-29 tablet by it y of hen 10-325 00:00: 04:59 mouth [place] mg tablet 00 :00 every 6 Medical (six) Branch hours as needed for Pain (scale 4-6) for up to 7 days. Indication s: acute pain proMETHazin 2020- No [id number] 25mg Take 1 Univers e 25 mg [...] mg 48 Starting Medica l tablet 1 [facility] tablet 06/01/20 at 1400, Until Discontinu ed, Routine, Pain (scale 4-6) cefpodoxime 0 2020- No Take by U nivers proxetil 4-20 04-20 mouth. ity of (VANTIN 18:00: 00:00 [place] ORAL) 17 :00 [facility] Branch proMETHazin 0 Yes 25mg 25 mg, Univ ers e 4-20 Oral, ity of (PHENERGAN) 15:20: Q4HPRN, [place] tablet 25 12 Starting Medica l mg [facility] 06/01/20 at 1020, Until Discontinu ed, Routine, Nausea and Vomiting (N/V) acetaminoph 2020- No 1{tbl} 1 tablet, Univers en-codeine -20 04-20 Oral, ity of (TYLENOL 15:18: 19:01 Q4HPRN, [place] #3) 300-30 42 :49 Starting Medic al mg tablet 1 [facility] tablet 06/01/20 at 1018, Until [facility] 06/01/20 at 1401, Routine, Pain (scale 4-6) pantoprazol 0 Yes 40mg 40 mg, Univ ers e 4-20 Oral, ity of (PROTONIX) 14:30: DAILY, [place] EC tablet 00 First dose Medi bernadine 40 mg on [facility] 06/01/20 at 0930, Until Discontinu ed, Routine azaTHIOprin 0 Yes 150mg 150 mg, Un matt e (IMURAN) 4-20 Oral, ity of tablet 150 14:30: DAILY, [place] mg 00 First dose Medical (after Branch last modificati on) on [facility] 06/01/20 at 0930, Until Discontinu ed, Routine morpHINE 0 Yes 2mg 2 mg, Slow Uni vers injection 2 4-20 IV Push, ity of mg 08:26: Q4HPRN, [place] 30 Starting Medical [facility] 06/01/20 at 0326, Until Discontinu ed, Routine, Pain (scale 7-10) morpHINE No 2mg 2 mg, Slow Un matt injection 2 06-01 IV Push, ity of mg 06:00: 05:01 ONCE, 1 [place] 00 :00 dose, [facility] Medical 06/01/20 at Branch 0100, Routine amoxicillin 2020- No [id number] 1{tbl} Take 1 Univers -clavulanat 06-01 tablet by it y of e 00:00: 04:59 mouth 2 [place] (AUGMENTIN) 00 :00 (two) Medical 875-125 mg times Branch per tablet daily for 7 days. proMETHazin 2020- No 25mg 25 mg, IV Univers e 05-31 Piggyback, ity of (PHENERGAN) 22:18: 15:20 Q6HPRN, [place] 25 mg in 42 :48 Starting Medical NaCl 0.9% [facility] (NS) 50 mL 05/31/20 at IV 1718, piggyback Until [facility] 06/01/20 at 1020, Routine, Nausea and Vomiting (N/V) acetaminoph Yes 650mg 650 mg, Un matt en 05-31 Oral, ity of (TYLENOL) 15:33: Q6HPRN, [place] tablet 650 00 Starting Medic al mg [facility] 05/31/20 at 1033, Until Discontinu ed, Routine, Temp > 38.5 C butalbital- Yes 1{tbl} 1 tablet, Univers acetaminoph 05-31 Oral, ity of en-caff 15:27: Q6HPRN, [place] (ESGIC) 07 Starting Medical 50-325-40 Mon Branch mg tablet 1 05/31/20 at tablet 1027, Until Discontinu ed, Routine, Pain (scale 1-3) losartan Yes 50mg 50 mg, Univers (COZAAR) 05-31 Oral, ity of tablet 50 14:00: DAILY, [place] mg 00 First dose Medical (after Branch last modificati on) on [facility] 05/31/20 at 0900, Until Discontinu ed, Routine metoprolol 2021-0 Yes 25mg 25 mg, Unive rs succinate 05-31 Oral, ity of XL (TOPROL 14:00: DAILY, [place] XL) tablet 00 First dose Med ical 25 mg (after Branch last modificati on) on [facility] 05/31/20 at 0900, Until Discontinu ed enoxaparin 2020-0 Yes 40mg 40 mg, Unive rs (LOVENOX) 05-31 Subcutaneo ity of injection 14:00: us, DAILY, [place] 40 mg 00 First dose Medical on [facility] 05/31/20 at 0900, Until Discontinu ed, Routine azaTHIOprin 2020-2020- No 50mg 50 mg, Uni vers e (IMURAN) 05-31-20 Oral, ity of tablet 50 14:00: 14:19 DAILY, [place] mg 00 :13 First dose Medical on [facility] 05/31/20 at 0900, Until Discontinu ed, Routine gabapentin 0 Yes 400mg 400 mg, Uni vers (NEURONTIN) 05-31 Oral, TID, it y of 400 mg 13:00: First dose [place] 00 on [facility] 05/31/20 at Branch 0800, Until Discontinu ed, Routine dicyclomine 0 Yes 20mg 20 mg, Univ ers (BENTYL) 05-31 Oral, TID, ity o f tablet 20 13:00: First dose [place] mg 00 on [facility] 05/31/20 at Branch 0800, Until Discontinu ed, Routine busPIRone 0 Yes 15mg 15 mg, Univer s (BUSPAR) 05-31 Oral, TID, ity o f tablet 15 13:00: First dose [place] mg 00 on [facility] 05/31/20 at Branch 0800, Until Discontinu ed, Routine temazepam 2020-0 2020- No 15mg 15 mg, Unive rs (RESTORIL) 05-31 Oral, ity of capsule 15 06:30: 05:28 ONCE, 1 [place] mg 00 :00 dose, [facility] 05/31/20 at Branch 0130, Routine proMETHazin 2020-0 202- No 25mg 25 mg, Uni vers e 05-31- Oral, ity of (PHENERGAN) 05:29: 22:06 Q6HPRN, [place] tablet 25 16 :24 Starting Medica l mg [facility] 05/31/20 at 0029, Until 05/31/20 at 1706, Routine, Nausea and Vomiting (N/V) ampicillin Yes 2g 2,000 mg Uni vers (POLYCILLIN 05-31 (2 g), IV ity of -N) 2,000 03:00: [place] NaCl 00 Q6H ABX, Medic al 0.9% (NS) First dose Bran ch 100 mL on [place] MINI-BAG 05/30/20 at 2200, Until Discontinu ed, 100 mL
R aurelio for Anti-Infec tive: Documented Infection< br>Documen karly Infection Site: Urine<b r>Duration of Therapy: 10 days gabapentin 2020- No 400mg 400 mg, Un matt (NEURONTIN) 05-31 Oral, TID, i ty of tablet 400 01:00: 13:39 First dose [place] mg 00 :25 on [facility] 05/30/20 at Branch 2000, Until Discontinu ed, Routine piperacilli 2020- No 3.375g 3.375 g, Univers n-tazobacta 05-30 IV ity of m (ZOSYN) 22:45: 22:40 [place], [place] 3.375 g in 00 :00 ONCE, 1 Medica l NaCl 0.9% dose, [place] Branc h (NS) 100 mL 05/30/20 at MINI-BAG 1745, 100 mL
Reas on for Anti-Infec tive: Documented Infection< br>Documen karly Infection Site: Urine
D uration of Therapy: Other (see Comments) FENTanyl PF 2020- No 75ug 75 mcg, Un matt (SUBLIMAZE 05-30 Slow IV ity o f (PF)) 22:45: 21:55 Push, [place] injection 00 :00 ONCE, 1 Medical 75 mcg dose, [facility] 05/30/20 at 1745, STAT proMETHazin 2020- No [...] 00 :49 CONTINUOUS Medic al , Starting [facility] 05/30/20 at 1730, Until Sun06/01/20 at 1401, Routine ondansetron Yes 4mg 4 mg, Slow Univers (ZOFRAN 18 IV Push, ity of (PF)) 22:23: Q6HPRN, [place] injection 4 13 Starting Medi bernadine mg [facility] 05/30/20 at 1723, Until Discontinu ed, Routine, Nausea and Vomiting (N/V) morpHINE 2020- No 4mg 4 mg, Slow Un matt injection 4 05-3019 IV Push, ity of mg 22:23: 22:22 Q4HPRN, [place] 07 :07 Starting Medical [facility] 05/30/20 at 1723, Until 05/31/20 at 1722, Routine, Pain (scale 7-10) HYDROcodone 2020- No 1{tbl} 1 tablet, Univers -acetaminop 05-30 Oral, ity of hen (NORCO 22:23: 15:19 Q6HPRN, [place] as 5) 5-325 mg 02 :39 Starting Medi bernadine tablet 1 [facility] tablet 05/30/20 at 1723, Until Sun06/01/20 at 1019, Routine, Pain (scale 4-6) acetaminoph 2020- No 650mg 650 mg, U nivers en 05-30 Oral, ity of (TYLENOL) 22:22: 15:33 Q6HPRN, [place] tablet 650 55 :25 Starting Medic al mg [facility] 05/30/20 at 1722, Until 05/31/20 at 1033, Routine, Pain (scale 1-3), Temp > 38.5 C oxybutynin 2021-0 Yes 5mg 5 mg, Univer s chloride 05-30 Oral, ity of (DITROPAN) 22:21: TIDPRN, [place] tablet 5 mg 36 Starting Medi bernadine [facility] 05/30/20 at 1721, Until Discontinu ed, Routine, Bladder spasms iohexol 2020- No [id number] 100mL 100 mL, Univers (OMNIPAQUE 05-30 Intravenou it y of 350 21:00: 20:40 s, ONCE, 1 [place] BULK-100 00 :00 dose, [place] Medica l mL) 05/30/20 at [place] injection 1600, 100 mL Routine FENTanyl PF 2020- No 50ug 50 mcg, Un matt (SUBLIMAZE 05-30 Slow IV ity o f (PF)) 21:00: 20:35 Push, [place] injection 00 :00 ONCE, 1 Medical 50 mcg dose, [facility] 05/30/20 at 1600, Routine ondansetron 2020- No 4mg 4 mg, Slow Univers (ZOFRAN 05-30 IV Push, ity of (PF)) 21:00: 20:22 ONCE, 1 [place] injection 4 00 :00 dose, [place] Med ical mg 05/30/20 at Branch 1600, GIGI proMETHazin 2020- No 25mg 25 mg, IV Univers e 05-27 Piggyback, ity of (PHENERGAN) 02:45: 01:47 ONCE, 1 [place] 25 mg in 00 :00 dose, [facility] Medica l NaCl 0.9% 05/26/20 at [facility] ch (NS) 50 mL 2144, 50 piggyback mL butorphanol 2020- No 2mg 2 mg, IV U nivers (STADOL) 05-27 Push, ity of injection 2 02:45: 01:33 ONCE, 1 [place] mg 00 :00 dose, [facility] Medical 05/26/20 at Branch 2145, Routine ONDANSETRON 2020- No Take by U nivers HCL (ZOFRAN 05-27 mouth. ity o f ORAL) 01:43: 00:00 [place] 58 :00 [facility] dicyclomine 2020- No 10mg Take 10 mg Univers 10 mg 05-27-14 by mouth. ity of capsule 01:43: 00:00 [place] 58 :00 [facility] Branch butorphanol 2020- No 1mg 1 mg, IV U nivers (STADOL) 05-27-15 Push, ity of injection 1 01:30: 00:38 ONCE, 1 [place] mg 00 :00 dose, [facility] Medical 05/26/20 at Branch 2030, Routine NaCl 0.9% 2020- No 1000mL at 999 Uni vers (NS) bolus 05-26-15 mL/hr, ity of infusion 23:30: 01:49 1,000 mL, [place] 1,000 mL 00 :00 IV Medical Infusion, [place] ONCE, 1 dose, [facility] 05/26/20 at 1830, GIGI oxybutynin 2020-0 Yes [id number] 5mg Take 1 U nivers chloride 5 4-14 tablet by ity of mg tablet 00:00: mouth 3 [place] [id number] (three) Medical times Branch daily as needed for Bladder spasms. oxybutynin 2020-0 Yes [id number] 5mg Take 1 U nivers chloride 5 4-14 tablet by ity of mg tablet 00:00: mouth 3 [place] (three) Medical times Branch daily as needed for Bladder spasms. oxybutynin 2020-0 Yes [id number] 5mg Take 1 U nivers chloride 5 4-14 tablet by ity of mg tablet 00:00: mouth 3 [place] (three) Medical times Branch daily as needed for Bladder spasms. oxybutynin 2020-0 Yes [id number] 5mg Take 1 U nivers chloride 5 4-14 tablet by ity of mg tablet 00:00: mouth 3 [place] (three) Medical times Branch daily as needed for Bladder spasms. oxybutynin 2020-0 Yes [id number] 5mg Take 1 U nivers chloride 5 4-14 tablet by ity of mg tablet 00:00: mouth 3 [place] (three) Medical times Branch daily as needed for Bladder spasms. oxybutynin 2020-0 Yes [id number] 5mg Take 1 U nivers chloride 5 4-14 tablet by ity of mg tablet 00:00: mouth 3 [place] (three) Medical times Branch daily as needed for Bladder spasms. oxybutynin 1-0 Yes [id number] 5mg Take 1 U nivers chloride 5 4-14 tablet by ity of mg tablet 00:00: mouth (three) Medical times Branch daily as needed for Bladder spasms. oxybutynin 1-0 Yes [id number] 5mg Take 1 U nivers chloride 5 4-14 tablet by ity of mg tablet 00:00: mouth (three) Medical times Branch daily as needed for Bladder spasms. oxybutynin 1-0 Yes [id number] 5mg Take 1 U nivers chloride 5 4-14 tablet by ity of mg tablet 00:00: mouth (three) Medical times Branch daily as needed for Bladder spasms. oxybutynin 1-0 Yes [id number] 5mg Take 1 U nivers chloride 5 4-14 tablet by ity of mg tablet 00:00: mouth (three) Medical times Branch daily as needed for Bladder spasms. oxybutynin 2020-0 Yes [id number] 5mg Take 1 U nivers chloride 5 4-14 tablet by ity of mg tablet 00:00: mouth (three) Medical times Branch daily as needed for Bladder spasms. oxybutynin 2020-0 Yes [id number] 5mg Take 1 U nivers chloride 5 4-14 tablet by ity of mg tablet 00:00: mouth (three) Medical times Branch daily as needed for Bladder spasms. oxybutynin 1-0 Yes [id number] 5mg Take 1 U nivers chloride 5 4-14 tablet by ity of mg tablet 00:00: mouth (three) Medical times Branch daily as needed for Bladder spasms. oxybutynin 1-0 Yes [id number] 5mg Take 1 U nivers chloride 5 4-14 tablet by ity of mg tablet 00:00: mouth (three) Medical times Branch daily as needed for Bladder spasms. oxybutynin 1-0 Yes [id number] 5mg Take 1 U nivers chloride 5 4-14 tablet by ity of mg tablet 00:00: mouth (three) Medical times Branch daily as needed for Bladder spasms. oxybutynin 1-0 Yes [id number] 5mg Take 1 U nivers chloride 5 4-14 tablet by ity of mg tablet 00:00: mouth (three) Medical times Branch daily as needed for Bladder spasms. oxybutynin 1-0 Yes [id number] 5mg Take 1 U nivers chloride 5 4-14 tablet by ity of mg tablet 00:00: mouth (three) Medical times Branch daily as needed for Bladder spasms. oxybutynin 1-0 Yes [id number] 5mg Take 1 U nivers chloride 5 4-14 tablet by ity of mg tablet 00:00: mouth (three) Medical times Branch daily as needed for Bladder spasms. oxybutynin 1-0 Yes [id number] 5mg Take 1 U nivers chloride 5 4-14 tablet by ity of mg tablet 00:00: mouth () Medical times Branch daily as needed for Bladder spasms. oxybutynin 1-0 Yes [id number] 5mg Take 1 U nivers chloride 5 4-14 tablet by ity of mg tablet 00:00: mouth (three) Medical times Branch daily as needed for Bladder spasms. oxybutynin 1-0 Yes [id number] 5mg Take 1 U nivers chloride 5 4-14 tablet by ity of mg tablet 00:00: mouth () Medical times Branch daily as needed for Bladder spasms. oxybutynin 1-0 Yes [id number] 5mg Take 1 U nivers chloride 5 4-14 tablet by ity of mg tablet 00:00: mouth (three) Medical times Branch daily as needed for Bladder spasms. oxybutynin 1-0 Yes [id number] 5mg Take 1 U nivers chloride 5 4-14 tablet by ity of mg tablet 00:00: mouth (three) Medical times Branch daily as needed for Bladder spasms. oxybutynin 1-0 Yes [id number] 5mg Take 1 U nivers chloride 5 4-14 tablet by ity of mg tablet 00:00: mouth (three) Medical times Branch daily as needed for Bladder spasms. oxybutynin 2021-0 Yes [id number] 5mg Take 1 U nivers chloride 5 4-14 tablet by ity of mg tablet 00:00: mouth (three) Medical times Branch daily as needed for Bladder spasms. oxybutynin Yes [id number] 5mg Take 1 U nivers chloride 5 4-14 tablet by ity of mg tablet 00:00: mouth 3 [place] 00 (three) Medical times Branch daily as needed for Bladder spasms. phenazopyri Yes [id number] 200mg Take 1 Univers dine 200 mg 4-14 tablet by ity of tablet 00:00: mouth 3 [place] 00 (three) Medical times Branch daily. proMETHazin 2020- Yes [id number] 25mg Take 1 Univers e 25 mg 4-14 tablet by ity of tablet 00:00: mouth [place] 00 every 6 Medical (six) Branch hours as needed for Nausea and Vomiting (N/V). oxybutynin 2020- No [id number] 5mg Take 1 Univers chloride 5 4-14 10-24 tablet by ity of mg tablet 00:00: 00:00 mouth 3 [place] :[place] (three) Medical times Branch daily as needed for Bladder spasms. proMETHazin 2020- No [id number] 25mg Take 1 Univers e 25 mg 4-14 04-21 tablet by ity of tablet 00:00: 00:00 mouth [place] 00 :00 every 6 Medical (six) Branch hours as needed for Nausea and Vomiting (N/V). phenazopyri 2020- No [id number] 200mg Take 1 Univers dine 200 mg 4-14 04-20 tablet by it y of tablet 00:00: 00:00 mouth 3 [place] 00 :00 (three) Medical times Branch daily. FENTanyl PF 2020- No 50ug 50 mcg, Un matt (SUBLIMAZE 05-13 Slow IV ity o f (PF)) 21:30: 20:45 Push, [place] injection 00 :00 ONCE, 1 Medical 50 mcg dose, [place] Branch 05/13/20 at 1630, Routine cefTRIAXone 2020- No 1000mg 1,000 mg, Univers (ROCEPHIN) 05-13 IV ity of 1,000 mg in 21:30: 21:22 Piggyback, [place] NaCl 0.9% 00 :00 ONCE, 1 Medical (NS) 50 mL dose, [facility] Bran ch MINI-BAG 05/13/20 at 1630, [...] at Branch 1245, GIGI iohexol 2020- No [id number] 120mL 120 mL, Univers (OMNIPAQUE 05-13 Intravenou [...] [place] 05/13/20 at 1145, GIGI proMETHazin Yes [id number] 25mg Take 1 Univers e 25 mg 4- tablet by ity of tablet 00:00: mouth [place] 00 every 6 Medical (six) Branch hours as needed for Nausea and Vomiting (N/V). proMETHazin 2020- Yes [id number] 25mg Take 1 Univers e 25 mg 4-01 tablet by ity of tablet 00:00: mouth [place] 00 every 6 Medical (six) Branch hours as needed for Nausea and Vomiting (N/V). proMETHazin 2020- No [id number] 25mg Take 1 Univers e 25 mg 05-13 04-14 tablet by ity of tablet 00:00: 00:00 mouth [place] 00 :00 every 6 Medical (six) Branch hours as needed for Nausea and Vomiting (N/V). cefpodoxime 2020- No [id number] 100mg Take 1 Univers 100 mg 05-13 [...] of (TOPROL XL 15:51: [place] ORAL) 34 [facility] Branch metoprolol Yes Take by Uni vers succinate 2-09 mouth. ity of (TOPROL XL 15:51: [place] ORAL) 34 [facility] Branch metoprolol Yes Take by Uni vers succinate 2-09 mouth. ity of (TOPROL XL 15:51: [place] ORAL) 34 [facility] Branch metoprolol Yes Take by Uni vers [...] [place] ORAL) Medical Branch gabapentin 2020-0 Yes [id number] 400mg Take 1 Univers 400 mg 2-09 capsule by ity of capsule 00:00: mouth 3 (three) Medical times Branch daily. gabapentin 2020-0 Yes [id number] 400mg Take 1 Univers 400 mg 2-09 capsule by ity of capsule 00:00: mouth 3 (three) Medical times Branch daily. gabapentin 2020-0 Yes [id number] 400mg Take 1 Univers 400 mg 2-09 capsule by ity of capsule 00:00: mouth 3 (three) Medical times Branch daily. gabapentin 2020-0 Yes [id number] 400mg Take 1 Univers 400 mg 2-09 capsule by ity of capsule 00:00: mouth 3 (three) Medical times Branch daily. gabapentin 2020-0 Yes [id number] 400mg Take 1 Univers 400 mg 2-09 capsule by ity of capsule 00:00: mouth 3 (three) Medical times Branch daily. gabapentin 2021-0 Yes [id number] 400mg Take 1 Univers 400 mg 2-09 capsule by ity of capsule 00:00: mouth 3 (three) Medical times Branch daily. gabapentin 2021-0 Yes [id number] 400mg Take 1 Univers 400 mg 2-09 capsule by ity of capsule 00:00: mouth 3 (three) Medical times Branch daily. gabapentin 2021-0 Yes [id number] 400mg Take 1 Univers 400 mg 2-09 capsule by ity of capsule 00:00: mouth 3 [place] 00 (three) Medical times Branch daily. gabapentin 2020-0 Yes [id number] 400mg Take 1 Univers 400 mg 2-09 capsule by ity of capsule 00:00: mouth 3 [place] 00 (three) Medical times Branch daily. gabapentin 2020-0 Yes [id number] 400mg Take 1 Univers 400 mg 2-09 capsule by ity of capsule 00:00: mouth 3 [place] 00 (three) Medical times Branch daily. gabapentin 2020-0 202- No [id number] 400mg Take 1 Univers 400 mg 2-10 17-17 capsule by ity of capsule 00:00: 00:00 mouth 3 [place] 00 :00 (three) Medical times Branch daily. gabapentin 2020-0 Yes 300mg Take 1 Univ ers 300 mg 2-04 capsule by ity of capsule 00:00: mouth 3 [place] 00 (three) Medical times Branch daily. gabapentin 2020-2020- No 300mg Take 1 Uni vers 300 mg 2-05 14- capsule by ity of capsule 00:00: 00:00 mouth 3 [place] 00 :00 (three) Medical times Branch daily. gabapentin 2020-2020- No 300mg Take 1 Uni vers 300 mg 2-04 -09 capsule by ity of capsule 00:00: 00:00 mouth 3 [place] 00 :00 (three) Medical times Branch daily. FENTanyl PF 2019-02- No 50ug 50 mcg, Un matt (SUBLIMAZE 12-08 Slow IV ity o f (PF)) 20:00: 07:59 Push, [place] injection 00 :00 ONCE, 1 Medical 50 mcg dose, [facility] Branch 12/08/19 at 1500, STAT proMETHazin 2019-02- No 12.5mg 12.5 mg, Univers e 12-07 IV ity of (PHENERGAN) 18:45: 17:52 Piggyback, [place] 12.5 mg in 00 :00 ONCE, 1 Medica l NaCl 0.9% dose, [facility] h (NS) 50 mL 12/08/19 piggyback at [...] TIMES A Branch DAY proMETHazin 2019-02 Yes [id number] 25mg Take 1 Univers e 25 mg 0-26 tablet by ity of tablet 00:00: mouth [place] 00 every 6 Medical (six) Branch hours as needed for Nausea and Vomiting (N/V). GABAPENTIN 2019-02 Yes TAKE 1 Unive rs 300 mg 0-26 CAPSULE BY ity of capsule 00:00: MOUTH [place] 00 THREE Medical TIMES A Branch DAY proMETHazin 2019-02 Yes [id number] 25mg Take 1 Univers e 25 mg 0-26 tablet by ity of tablet 00:00: mouth [place] 00 every 6 Medical (six) Branch hours as needed for Nausea and Vomiting (N/V). GABAPENTIN 2019-02 Yes TAKE 1 Unive rs 300 mg 0-26 CAPSULE BY ity of capsule 00:00: MOUTH [place] 00 THREE Medical TIMES A Branch DAY proMETHazin 2019- Yes [id number] 25mg Take 1 Univers e 25 mg 0-26 tablet by ity of tablet 00:00: mouth [place] 00 every 6 Medical (six) Branch hours as needed for Nausea and Vomiting (N/V). proMETHazin 2019- Yes [id number] 25mg Take 1 Univers e 25 mg 0-26 tablet by ity of tablet 00:00: mouth [place] 00 every 6 Medical (six) Branch hours as needed for Nausea and Vomiting (N/V). proMETHazin 2019- Yes [id number] 25mg Take 1 Univers e 25 mg 0-26 tablet by ity of tablet 00:00: mouth [place] 00 every 6 Medical (six) Branch hours as needed for Nausea and Vomiting (N/V). proMETHazin 2019-02 Yes [id number] 25mg Take 1 Univers e 25 mg 0-26 tablet by ity of tablet 00:00: mouth [place] 00 every 6 Medical (six) Branch hours as needed for Nausea and Vomiting (N/V). proMETHazin 2019-02 Yes [id number] 25mg Take 1 Univers e 25 mg 0-26 tablet by ity of tablet 00:00: mouth [place] 00 every 6 Medical (six) Branch hours as needed for Nausea and Vomiting (N/V). proMETHazin 2019-02 Yes [id number] 25mg Take 1 Univers e 25 mg 0-26 tablet by ity of tablet 00:00: mouth [place] 00 every 6 Medical (six) Branch hours as needed for Nausea and Vomiting (N/V). proMETHazin 2019-02 Yes [id number] 25mg Take 1 Univers e 25 mg 0-26 tablet by ity of tablet 00:00: mouth [place] 00 every 6 Medical (six) Branch hours as needed for Nausea and Vomiting (N/V). proMETHazin 2019-02 Yes [id number] 25mg Take 1 Univers e 25 mg 0-26 tablet by ity of tablet 00:00: mouth [place] 00 every 6 Medical (six) Branch hours as needed for Nausea and Vomiting (N/V). proMETHazin 2019-02 No [id number] 25mg Take 1 Univers e 25 mg [...] s mg tablet 0-23 ity of 00:00: [place] [facility] Branch busPIRone 5 2019-02 Yes Univer s mg tablet 0-23 ity of 00:00: [place] [facility] busPIRone 5 2019- Yes Univer s mg tablet 0-23 ity of 00:00: [place] [facility] busPIRone 5 2019- Yes Univer s mg tablet 0-23 ity of 00:00: [place] [facility] busPIRone 5 2019- Yes Univer s mg tablet 0-23 ity of 00:00: [place] [facility] busPIRone 5 2019- Yes Univer s mg tablet 0-23 ity of 00:00: [place] [facility] busPIRone 5 2019- Yes Univer s mg tablet 0-23 ity of 00:00: Medical Branch busPIRone 5 2019- Yes Univer s mg tablet 0-23 ity of 00:00: [place] [facility] busPIRone 5 2019- Yes Univer s mg tablet 0-23 ity of 00:00: Medical Branch busPIRone 5 2019- Yes Univer s mg tablet 0-23 ity of 00:00: Medical Branch busPIRone 5 2019- Yes Univer s mg tablet 0-23 ity of 00:00: Medical Branch busPIRone 5 2019- Yes Univer s mg tablet 0-23 ity of 00:00: [place] [facility] busPIRone 5 2019- Yes Univer s mg tablet 0 ity of 00:00: [place] [facility] busPIRone 5 2019-2020- No Unive rs mg tablet 0-18 ity of 00:00: 00:00 [place] :00 Medical Branch losartan 50 2020-0 Yes 50mg Take 50 mg Univers mg tablet 9-21 by mouth ity of 00:00: daily. [place] [facility] losartan 50 2020-0 Yes 50mg Take 50 mg Univers mg tablet 9-21 by mouth ity of 00:00: daily. [place] [facility] losartan 50 2020-0 Yes 50mg Take 50 mg Univers mg tablet 9-21 by mouth ity of 00:00: daily. [place] [facility] losartan 50 2020-0 Yes 50mg Take 50 mg Univers mg tablet 9-21 by mouth ity of 00:00: daily. [place] [facility] losartan 50 2020-0 Yes 50mg Take 50 mg Univers mg tablet 9-21 by mouth ity of 00:00: daily. [place] [facility] losartan 50 2020-0 Yes 50mg Take 50 mg Univers mg tablet 9-21 by mouth ity of 00:00: daily. [place] [facility] losartan 50 2020-0 Yes 50mg Take 50 mg Univers mg tablet 9-21 by mouth ity of 00:00: daily. [place] [facility] losartan 50 2020-0 Yes 50mg Take 50 mg Univers mg tablet 9-21 by mouth ity of 00:00: daily. [place] [facility] losartan 50 2020-0 Yes 50mg Take 50 mg Univers mg tablet 9-21 by mouth ity of 00:00: daily. [place] [facility] losartan 50 2020-0 Yes 50mg Take 50 mg Univers mg tablet 9-21 by mouth ity of 00:00: daily. [place] [facility] losartan 50 2020-0 Yes 50mg Take 50 mg Univers mg tablet 9-21 by mouth ity of 00:00: daily. [place] [facility] losartan 50 2020-0 Yes 50mg Take 50 mg Univers mg tablet 9-21 by mouth ity of 00:00: daily. [place] [facility] losartan 50 2020-0 Yes 50mg Take 50 mg Univers mg tablet 9-21 by mouth ity of 00:00: daily. [place] [facility] losartan 50 2020-0 Yes 50mg Take 50 mg Univers mg tablet 9-21 by mouth ity of 00:00: daily. [place] [facility] losartan 50 2020-0 Yes 50mg Take 50 mg Univers mg tablet 9-21 by mouth ity of 00:00: daily. [place] [facility] losartan 50 2020-0 Yes 50mg Take 50 mg Univers mg tablet 9-21 by mouth ity of 00:00: daily. [place] [facility] losartan 50 2020-0 Yes 50mg Take 50 mg Univers mg tablet 9-21 by mouth ity of 00:00: daily. [place] [facility] losartan 50 2020-0 Yes 50mg Take 50 mg Univers mg tablet 9-21 by mouth ity of 00:00: daily. [place] [facility] losartan 50 2020-0 Yes 50mg Take 50 mg Univers mg tablet 9-21 by mouth ity of 00:00: daily. [place] [facility] losartan 50 2020-0 Yes 50mg Take 50 mg Univers mg tablet 9-21 by mouth ity of 00:00: daily. [place] [facility] losartan 50 2020-0 Yes 50mg Take 50 mg Univers mg tablet 9-21 by mouth ity of 00:00: daily. [place] [facility] losartan 50 2020-0 Yes 50mg Take 50 mg Univers mg tablet 9-21 by mouth ity of 00:00: daily. [place] [facility] losartan 50 2020-0 Yes 50mg Take 50 mg Univers mg tablet 9-21 by mouth ity of 00:00: daily. [place] [facility] losartan 50 2020-0 Yes 50mg Take 50 mg Univers mg tablet 9-21 by mouth ity of 00:00: daily. [place] [facility] losartan 50 2020-0 Yes 50mg Take 50 mg Univers mg tablet 9-21 by mouth ity of 00:00: daily. [place] [facility] losartan 50 2020-0 Yes 50mg Take 50 mg Univers mg tablet 9-21 by mouth ity of 00:00: daily. [place] [facility] losartan 50 2020-0 Yes 50mg Take 50 mg Univers mg tablet 9-21 by mouth ity of 00:00: daily. [place] [facility] losartan 50 2020-0 Yes 50mg Take 50 mg Univers mg tablet 9-21 by mouth ity of 00:00: daily. [place] [facility] Branch losartan 50 2020-0 Yes 50mg Take 50 mg Univers mg tablet 9-21 by mouth ity of 00:00: daily. [place] [facility] losartan 50 2020-0 Yes 50mg Take 50 mg Univers mg tablet 9-21 by mouth ity of 00:00: daily. [place] [facility] losartan 50 2020-0 Yes 50mg Take 50 mg Univers mg tablet 9-21 by mouth ity of 00:00: daily. [place] [facility] losartan 50 2020-0 Yes 50mg Take 50 mg Univers mg tablet 9-21 by mouth ity of 00:00: daily. [place] [facility] Branch losartan 50 2020-0 Yes 50mg Take 50 mg Univers mg tablet 9-21 by mouth ity of 00:00: daily. [place] [facility] Branch losartan 50 2020-0 Yes 50mg Take 50 mg Univers mg tablet 9-21 by mouth ity of 00:00: daily. [place] [facility] Branch losartan 50 2020-0 Yes 50mg Take 50 mg Univers mg tablet 9-21 by mouth ity of 00:00: daily. [place] [facility] Branch losartan 50 2020-0 Yes 50mg Take 50 mg Univers mg tablet 9-21 by mouth ity of 00:00: daily. [place] [facility] losartan 50 2020-0 Yes 50mg Take 50 mg Univers mg tablet 9-21 by mouth ity of 00:00: daily. [place] [facility] Branch losartan 50 2020-0 Yes 50mg Take 50 mg Univers mg tablet 9-21 by mouth ity of 00:00: daily. [place] [facility] Branch losartan 50 2020-0 2021- No 100mg [...] 00 once every Medical mg/mL AtIn month. [place] erenumab-ao 2020-0 2020- No 140mg inject 140 Univers oe (AIMOVIG 3-13 09-09 mg under ity of AUTOINJECTO 00:00: 00:00 the skin [place] R) 140 00 :00 once every Medical mg/mL AtIn month. [place] gabapentin 2020-0 2020- No 300mg Take 1 Uni vers 300 mg 3-13 04-09 capsule by ity of capsule 00:00: 00:00 mouth 3 [place] 00 :00 (three) Medical times Branch daily. divalproex 2020-0 Yes [id number] 250mg Take 1 Univers 250 mg EC 3-05 tablet by ity o f tablet 00:00: mouth [place] 00 every 12 Medical (twelve) Branch hours. divalproex 2020-0 Yes [id number] 250mg Take 1 Univers 250 mg EC 3-05 tablet by ity o f tablet 00:00: mouth [place] 00 every 12 Medical (twelve) Branch hours. divalproex 2020-0 Yes [id number] 250mg Take 1 Univers 250 mg EC 3-05 tablet by ity o f tablet 00:00: mouth [place] 00 every 12 Medical (twelve) Branch hours. divalproex 2020-0 Yes [id number] 250mg Take 1 Univers 250 mg EC 3-05 tablet by ity o f tablet 00:00: mouth [place] 00 every 12 Medical (twelve) Branch hours. divalproex 2020-0 Yes [id number] 250mg Take 1 Univers 250 mg EC 3-05 tablet by ity o f tablet 00:00: mouth [place] 00 every 12 Medical (twelve) Branch hours. divalproex 2020-0 Yes [id number] 250mg Take 1 Univers 250 mg EC 2-28 tablet by ity o f tablet 00:00: mouth [place] 00 every 12 Medical (twelve) Branch hours. divalproex 2020-0 2020- No [id number] 250mg Take 1 Univers 250 mg EC 2-28 03-05 tablet by ity of tablet 00:00: 00:00 mouth [place] 00 :00 every 12 Medical (twelve) Branch hours. divalproex 2020-0 2020- No [id number] 250mg Take 1 Univers 250 mg EC 2-28 03-05 tablet by ity of tablet 00:00: 00:00 mouth [place] 00 :00 every 12 Medical (twelve) Branch hours. divalproex 2020-0 2020- No [id number] 250mg Take 1 Univers 250 mg EC 2-28 03-05 tablet by ity of tablet 00:00: 00:00 mouth [place] 00 :00 every 12 Medical (twelve) Branch hours. divalproex 2020-0 2020- No [id number] 250mg Take 1 Univers 250 mg EC [...] times Medical daily. Branch divalproex 2020-0 Yes [id number] 125mg Take 1 Univers 125 mg EC 2-14 tablet by ity o f tablet 00:00: mouth [place] 00 every 12 Medical (twelve) Branch hours. divalproex 2020-0 Yes [id number] 125mg Take 1 [facility] 125 mg EC 2-14 tablet by ity o f tablet 00:00: mouth [place] 00 every 12 Medical (twelve) Branch hours. divalproex 2020-0 Yes [id number] 125mg Take 1 [facility] 125 mg EC 2-14 tablet by ity o f tablet 00:00: mouth [place] 00 every 12 Medical (twelve) Branch hours. divalproex 2020-0 Yes [id number] 125mg Take 1 [facility] 125 mg EC 2-14 tablet by ity o f tablet 00:00: mouth [place] 00 every 12 Medical (twelve) Branch hours. divalproex 2020-0 2020- No [id number] 125mg Take 1 [facility] 125 mg EC [...] 2-09 by mouth. ity of capsule 15:24: [address] dicyclomine 2018-02 Yes 10mg Take 10 mg [facility] 10 mg 2-09 by mouth. ity of capsule 15:24: [address] dicyclomine 2018-02 Yes 10mg Take 10 mg [facility] 10 mg 2-09 by mouth. ity of capsule 15:24: [address] dicyclomine 2018-02 Yes 10mg Take 10 mg [facility] 10 mg 2-09 by mouth. ity of capsule 15:24: [address] dicyclomine 2018-02 Yes 10mg Take 10 mg [facility] 10 mg 2-09 by mouth. ity of capsule 15:24: [address] dicyclomine 2018-02 Yes 10mg Take 10 mg [facility] 10 mg 2-09 by mouth. ity of capsule 15:24: [address] dicyclomine 2018-02 Yes 10mg Take 10 mg [facility] 10 mg 2-09 by mouth. ity of capsule 15:24: [address] dicyclomine 2018-02 Yes 10mg Take 10 mg [facility] 10 mg 2-09 by mouth. ity of capsule 15:24: [address] dicyclomine 2018-02 Yes 10mg Take 10 mg [facility] 10 mg 2-09 by mouth. ity of capsule 15:24: [address] dicyclomine 2018-02 Yes 10mg Take 10 mg [facility] 10 mg 2-09 by mouth. ity of capsule 15:24: [address] dicyclomine 2018-02 Yes 10mg Take 10 mg [facility] 10 mg 2-09 by mouth. ity of capsule 15:24: [address] dicyclomine 2018-02 Yes 10mg Take 10 mg [facility] 10 mg 2-09 by mouth. ity of capsule 15:24: [address] dicyclomine 2018-02 Yes 10mg Take 10 mg [facility] 10 mg 2-09 by mouth. ity of capsule 15:24: [address] dicyclomine 2018-02 Yes 10mg Take 10 mg [facility] 10 mg 2-09 by mouth. ity of capsule 15:24: [address] dicyclomine 2018-02 Yes 10mg Take 10 mg [facility] 10 mg 2-09 by mouth. ity of capsule 15:24: [address] dicyclomine 2018-02 Yes 10mg Take 10 mg [facility] 10 mg 2-09 by mouth. ity of capsule 15:24: [address] dicyclomine 2018-02 Yes 10mg Take 10 mg [facility] 10 mg 2-09 by mouth. ity of capsule 15:24: [address] dicyclomine 2018-02 Yes 10mg Take 10 mg [facility] 10 mg 2-09 by mouth. ity of capsule 15:24: [address] dicyclomine 2018-02 Yes 10mg Take 10 mg [facility] 10 mg 2-09 by mouth. ity of capsule 15:24: [address] dicyclomine 2018-02 Yes 10mg Take 10 mg [facility] 10 mg 2-09 by mouth. ity of capsule 15:24: [address] dicyclomine 2018-02 Yes 10mg Take 10 mg [facility] 10 mg 2-09 by mouth. ity of capsule 15:24: [address] dicyclomine 2018-02 Yes 10mg Take 10 mg [facility] 10 mg 2-09 by mouth. ity of capsule 15:24: [address] dicyclomine 2018-02 Yes 10mg Take 10 mg [facility] 10 mg 2-09 by mouth. ity of capsule 15:24: [address] dicyclomine 2018-02 Yes 10mg Take 10 mg [facility] 10 mg 2-09 by mouth. ity of capsule 15:24: [address] dicyclomine 2018-02 Yes 10mg Take 10 mg [facility] 10 mg 2-09 by mouth. ity of capsule 15:24: [address] dicyclomine 2018-02 Yes 10mg Take 10 mg [facility] 10 mg 2-09 by mouth. ity of capsule 15:24: [address] dicyclomine 2018-02 Yes 10mg Take 10 mg [facility] 10 mg 2-09 by mouth. ity of capsule 15:24: [address] dicyclomine 2018-02 Yes 10mg Take 10 mg [facility] 10 mg 2-09 by mouth. ity of capsule 15:24: [address] dicyclomine 2018-02 Yes 10mg Take 10 mg [facility] 10 mg 2-09 by mouth. ity of capsule 15:24: [address] dicyclomine 2018-02 Yes 10mg Take 10 mg [facility] 10 mg 2-09 by mouth. ity of capsule 15:24: [address] dicyclomine 2018-02 Yes 10mg Take 10 mg [facility] 10 mg 2-09 by mouth. ity of capsule 15:24: [address] dicyclomine 2018-02 Yes 10mg Take 10 mg [facility] 10 mg 2-09 by mouth. ity of capsule 15:24: [address] ONDANSETRON 2018-02 Yes Take by Un matt HCL (ZOFRAN 2-09 mouth. ity of ORAL) 15:22: [address] ONDANSETRON 2018-02 Yes Take by Un matt HCL (ZOFRAN 2-09 mouth. ity of ORAL) 15:22: [address] ONDANSETRON 2018- Yes Take by Un matt HCL (ZOFRAN 2-09 mouth. ity of ORAL) 15:22: [address] ONDANSETRON 2018- Yes Take by Un matt HCL (ZOFRAN 2-09 mouth. ity of ORAL) 15:22: [address] ONDANSETRON 2018- Yes Take by Un matt HCL (ZOFRAN 2-09 mouth. ity of ORAL) 15:22: [address] ONDANSETRON 2018- Yes Take by Un matt HCL (ZOFRAN 2-09 mouth. ity of ORAL) 15:22: [address] ONDANSETRON 2018- Yes Take by Un matt HCL (ZOFRAN 2-09 mouth. ity of ORAL) 15:22: [place] 05 [facility] ONDANSETRON 2018- Yes Take by Un matt HCL (ZOFRAN 2-09 mouth. ity of ORAL) 15:22: [place] [address] Medical Branch ONDANSETRON 2018- Yes Take by Un matt HCL (ZOFRAN 2-09 mouth. ity of ORAL) 15:22: [place] [address] Medical Branch ONDANSETRON 2018- Yes Take by Un matt HCL (ZOFRAN 2-09 mouth. ity of ORAL) 15:22: [place] [address] Medical Branch ONDANSETRON 2018- Yes Take by Un matt HCL (ZOFRAN 2-09 mouth. ity of ORAL) 15:22: [place] [address] Medical Branch ONDANSETRON 2018- Yes Take by Un matt HCL (ZOFRAN 2-09 mouth. ity of ORAL) 15:22: [address] Branch ONDANSETRON 2018- Yes Take by Un matt HCL (ZOFRAN 2-09 mouth. ity of ORAL) 15:22: [address] Branch ONDANSETRON 2018- Yes Take by Un matt HCL (ZOFRAN 2-09 mouth. ity of ORAL) 15:22: [address] Branch ONDANSETRON 2018- Yes Take by Un matt HCL (ZOFRAN 2-09 mouth. ity of ORAL) 15:22: [address] Branch ONDANSETRON 2018- Yes Take by Un matt HCL (ZOFRAN 2-09 mouth. ity of ORAL) 15:22: [address] Branch ONDANSETRON 2018- Yes Take by Un matt HCL (ZOFRAN 2-09 mouth. ity of ORAL) 15:22: [address] Branch ONDANSETRON 2018- Yes Take by Un matt HCL (ZOFRAN 2-09 mouth. ity of ORAL) 15:22: [place] [address] Medical Branch ONDANSETRON 2018- Yes Take by Un matt HCL (ZOFRAN 2-09 mouth. ity of ORAL) 15:22: [place] [address] Medical Branch ONDANSETRON 2018- Yes Take by Un matt HCL (ZOFRAN 2-09 mouth. ity of ORAL) 15:22: [place] [address] Medical Branch ONDANSETRON 2018- Yes Take by Un amtt HCL (ZOFRAN 2-09 mouth. ity of ORAL) 15:22: [address] ONDANSETRON 2018- Yes Take by Un matt HCL (ZOFRAN 2-09 mouth. ity of ORAL) 15:22: [address] ONDANSETRON 2018-02 Yes Take by Un matt HCL (ZOFRAN 2-09 mouth. ity of ORAL) 15:22: [address] ONDANSETRON 2018-02 Yes Take by Un matt HCL (ZOFRAN 2-09 mouth. ity of ORAL) 15:22: [address] ONDANSETRON 2018-02 Yes Take by Un matt HCL (ZOFRAN 2-09 mouth. ity of ORAL) 15:22: [address] ONDANSETRON 2018-02 Yes Take by Un matt HCL (ZOFRAN 2-09 mouth. ity of ORAL) 15:22: [address] ONDANSETRON 2018-02 Yes Take by Un matt HCL (ZOFRAN 2-09 mouth. ity of ORAL) 15:22: [address] ONDANSETRON 2018-02 Yes Take by Un matt HCL (ZOFRAN 2-09 mouth. ity of ORAL) 15:22: [address] ONDANSETRON 2018-02 Yes Take by Un matt HCL (ZOFRAN 2-09 mouth. ity of ORAL) 15:22: [address] ONDANSETRON 2018-02 Yes Take by Un matt HCL (ZOFRAN 2-09 mouth. ity of ORAL) 15:22: [address] ONDANSETRON 2018-02 Yes Take by Un matt HCL (ZOFRAN 2-09 mouth. ity of ORAL) 15:22: [address] ONDANSETRON 2018-02 Yes Take by Un matt HCL (ZOFRAN 2-09 mouth. ity of ORAL) 15:22: [address] azaTHIOprin 2018-02 Yes 150mg Take 150 [...] 50 mg 2-02 ity of tablet 00:00: [place] [facility] azaTHIOprin 2019-1 Yes Univer s e 50 mg 2-02 ity of tablet 00:00: [place] [facility] azaTHIOprin 2019-1 Yes Univer s e 50 mg 2-02 ity of tablet 00:00: [place] [address] [facility] Branch azaTHIOprin 2019-1 Yes Univer s e 50 mg 2-02 ity of tablet 00:00: [place] [facility] azaTHIOprin 2019-1 Yes Univer s e 50 mg 2-02 ity of tablet 00:00: [place] [address] [facility] Branch azaTHIOprin 2019-1 Yes Univer s e 50 mg 2-02 ity of tablet 00:00: [place] [address] Medical Branch azaTHIOprin 2019-1 Yes Univer s e 50 mg 2-02 ity of tablet 00:00: [place] [address] Medical Branch azaTHIOprin 2019-1 Yes Univer s e 50 mg 2-02 ity of tablet 00:00: [place] [address] Medical Branch azaTHIOprin 2019-1 Yes Univer s e 50 mg 2-02 ity of tablet 00:00: [place] [address] [facility] Branch azaTHIOprin 2019-1 Yes Univer s e 50 mg 2-02 ity of tablet 00:00: [place] [address] [facility] Branch azaTHIOprin 2019-1 Yes Univer s e 50 mg 2-02 ity of tablet 00:00: [place] [address] Medical Branch azaTHIOprin 2019-1 Yes Univer s e 50 mg 2-02 ity of tablet 00:00: [place] [address] [facility] Branch azaTHIOprin 2019-1 Yes Univer s e 50 mg 2-02 ity of tablet 00:00: [place] [address] Medical Branch azaTHIOprin 2019-1 Yes Univer s e 50 mg 2-02 ity of tablet 00:00: [place] [address] [facility] Branch azaTHIOprin 2019-1 Yes Univer s e 50 mg 2-02 ity of tablet 00:00: [place] [address] [facility] Branch azaTHIOprin 2019-1 Yes Univer s e 50 mg 2-02 ity of tablet 00:00: [place] [address] [facility] Branch azaTHIOprin 2019-1 Yes Univer s e 50 mg 2-02 ity of tablet 00:00: [place] [address] [facility] Branch azaTHIOprin 2019-1 Yes Univer s e 50 mg 2-02 ity of tablet 00:00: [place] [address] Medical Branch azaTHIOprin 2019-1 Yes Univer s e 50 mg 2-02 ity of tablet 00:00: [place] [address] Medical Branch azaTHIOprin 2018-02 Yes Univer s [...] 50 mg 2-02 ity of tablet 00:00: [place] 00 [facility] azaTHIOprin 2018-02 Yes Univer s e 50 mg 2-02 ity of tablet 00:00: [place] 00 [facility] azaTHIOprin 2018-02 Yes Univer s e 50 mg 2-02 ity of tablet 00:00: [place] [facility] azaTHIOprin 2018-02 Yes Univer s e 50 mg 2-02 ity of tablet 00:00: [place] 00 [facility] azaTHIOprin 2018-1- No 150mg Take 150 [facility] e 50 mg 2-02 10-24 mg by ity of tablet 00:00: 00:00 mouth [place] 00 :00 daily. Medical Branch ibuprofen 2018-02 Yes [id number] 600mg Take 1 [facility] 600 mg 1-13 tablet by ity of tablet 00:00: mouth [place] 00 every 6 Medical (six) Branch hours as needed for Pain (scale 4-6). ibuprofen 2018-02 Yes [id number] 600mg Take 1 [facility] 600 mg 1-13 tablet by ity of tablet 00:00: mouth [place] 00 every 6 Medical (six) Branch hours as needed for Pain (scale 4-6). ibuprofen 2018-02 Yes [id number] 600mg Take 1 [facility] 600 mg 1-13 tablet by ity of tablet 00:00: mouth [place] 00 every 6 Medical (six) Branch hours as needed for Pain (scale 4-6). ibuprofen 2018-02 Yes [id number] 600mg Take 1 [facility] 600 mg 1-13 tablet by ity of tablet 00:00: mouth [place] 00 every 6 Medical (six) Branch hours as needed for Pain (scale 4-6). ibuprofen 2018-02 Yes [id number] 600mg Take 1 [facility] 600 mg 1-13 tablet by ity of tablet 00:00: mouth [place] 00 every 6 Medical (six) Branch hours as needed for Pain (scale 4-6). ibuprofen 2018-02 Yes [id number] 600mg Take 1 [facility] 600 mg 1-13 tablet by ity of tablet 00:00: mouth [place] 00 every 6 Medical (six) Branch hours as needed for Pain (scale 4-6). ibuprofen 2018- Yes [id number] 600mg Take 1 [facility] 600 mg 1-13 tablet by ity of tablet 00:00: mouth [place] 00 every 6 Medical (six) Branch hours as needed for Pain (scale 4-6). ibuprofen 2018-02 Yes [id number] 600mg Take 1 [facility] 600 mg 1-13 tablet by ity of tablet 00:00: mouth [place] 00 every 6 Medical (six) Branch hours as needed for Pain (scale 4-6). ibuprofen 2018-02 Yes [id number] 600mg Take 1 [facility] 600 mg 1-13 tablet by ity of tablet 00:00: mouth [place] 00 every 6 Medical (six) Branch hours as needed for Pain (scale 4-6). ibuprofen 2018-02 Yes [id number] 600mg Take 1 [facility] 600 mg 1-13 tablet by ity of tablet 00:00: mouth [place] 00 every 6 Medical (six) Branch hours as needed for Pain (scale 4-6). ibuprofen 2018-02 Yes [id number] 600mg Take 1 [facility] 600 mg 1-13 tablet by ity of tablet 00:00: mouth [place] 00 every 6 Medical (six) Branch hours as needed for Pain (scale 4-6). ibuprofen 2018-02 Yes [id number] 600mg Take 1 [facility] 600 mg 1-13 tablet by ity of tablet 00:00: mouth [place] 00 every 6 Medical (six) Branch hours as needed for Pain (scale 4-6). ibuprofen 2018-02 Yes [id number] 600mg Take 1 [facility] 600 mg 1-13 tablet by ity of tablet 00:00: mouth [place] 00 every 6 Medical (six) Branch hours as needed for Pain (scale 4-6). ibuprofen 2019- Yes [id number] 600mg Take 1 [facility] 600 mg 1-13 tablet by ity of tablet 00:00: mouth [place] 00 every 6 Medical (six) Branch hours as needed for Pain (scale 4-6). ibuprofen 2018- Yes [id number] 600mg Take 1 [facility] 600 mg 1-13 tablet by ity of tablet 00:00: mouth [place] 00 every 6 Medical (six) Branch hours as needed for Pain (scale 4-6). ibuprofen 2018-02 Yes [id number] 600mg Take 1 [facility] 600 mg 1-13 tablet by ity of tablet 00:00: mouth [place] 00 every 6 Medical (six) Branch hours as needed for Pain (scale 4-6). ibuprofen 2018-02 Yes [id number] 600mg Take 1 [facility] 600 mg 1-13 tablet by ity of tablet 00:00: mouth [place] 00 every 6 Medical (six) Branch hours as needed for Pain (scale 4-6). ibuprofen 2018-02 Yes [id number] 600mg Take 1 [facility] 600 mg 1-13 tablet by ity of tablet 00:00: mouth [place] 00 every 6 Medical (six) Branch hours as needed for Pain (scale 4-6). ibuprofen 2018-02 Yes [id number] 600mg Take 1 [facility] 600 mg 1-13 tablet by ity of tablet 00:00: mouth [place] 00 every 6 Medical (six) Branch hours as needed for Pain (scale 4-6). ibuprofen 2018-02 Yes [id number] 600mg Take 1 [facility] 600 mg 1-13 tablet by ity of tablet 00:00: mouth [place] 00 every 6 Medical (six) Branch hours as needed for Pain (scale 4-6). ibuprofen 2018-02 Yes [id number] 600mg Take 1 [facility] 600 mg 1-13 tablet by ity of tablet 00:00: mouth [place] 00 every 6 Medical (six) Branch hours as needed for Pain (scale 4-6). ibuprofen 2018-02 Yes [id number] 600mg Take 1 [facility] 600 mg 1-13 tablet by ity of tablet 00:00: mouth [place] 00 every 6 Medical (six) Branch hours as needed for Pain (scale 4-6). ibuprofen 2018-02 Yes [id number] 600mg Take 1 [facility] 600 mg 1-13 tablet by ity of tablet 00:00: mouth [place] 00 every 6 Medical (six) Branch hours as needed for Pain (scale 4-6). ibuprofen 2018- Yes [id number] 600mg Take 1 [facility] 600 mg 1-13 tablet by ity of tablet 00:00: mouth [place] 00 every 6 Medical (six) Branch hours as needed for Pain (scale 4-6). ibuprofen 2018-02 Yes [id number] 600mg Take 1 [facility] 600 mg 1-13 tablet by ity of tablet 00:00: mouth [place] 00 every 6 Medical (six) Branch hours as needed for Pain (scale 4-6). ibuprofen 2018-02 Yes [id number] 600mg Take 1 [facility] 600 mg 1-13 tablet by ity of tablet 00:00: mouth [place] 00 every 6 Medical (six) Branch hours as needed for Pain (scale 4-6). ibuprofen 2018-02 Yes [id number] 600mg Take 1 [facility] 600 mg 1-13 tablet by ity of tablet 00:00: mouth [place] 00 every 6 Medical (six) Branch hours as needed for Pain (scale 4-6). ibuprofen 2018-02 Yes [id number] 600mg Take 1 [facility] 600 mg 1-13 tablet by ity of tablet 00:00: mouth [place] 00 every 6 Medical (six) Branch hours as needed for Pain (scale 4-6). ibuprofen 2018-02 Yes [id number] 600mg Take 1 [facility] 600 mg 1-13 tablet by ity of tablet 00:00: mouth [place] 00 every 6 Medical (six) Branch hours as needed for Pain (scale 4-6). ibuprofen 2018-02 Yes [id number] 600mg Take 1 [facility] 600 mg 1-13 tablet by ity of tablet 00:00: mouth [place] 00 every 6 Medical (six) Branch hours as needed for Pain (scale 4-6). ibuprofen 2018-02 Yes [id number] 600mg Take 1 [facility] 600 mg 1-13 tablet by ity of tablet 00:00: mouth [place] 00 every 6 Medical (six) Branch hours as needed for Pain (scale 4-6). ibuprofen 2018-02 Yes [id number] 600mg Take 1 [facility] 600 mg 1-13 tablet by ity of tablet 00:00: mouth [place] 00 every 6 Medical (six) Branch hours as needed for Pain (scale 4-6). ibuprofen 2018-02 Yes [id number] 600mg Take 1 [facility] 600 mg 1-13 tablet by ity of tablet 00:00: mouth [place] 00 every 6 Medical (six) Branch hours as needed for Pain (scale 4-6). ibuprofen 2018- Yes [id number] 600mg Take 1 [facility] 600 mg 1-13 tablet by ity of tablet 00:00: mouth [place] 00 every 6 Medical (six) Branch hours as needed for Pain (scale 4-6). ibuprofen 2018- Yes [id number] 600mg Take 1 [facility] 600 mg 1-13 tablet by ity of tablet 00:00: mouth [place] 00 every 6 Medical (six) Branch hours as needed for Pain (scale 4-6). ibuprofen 2018-02 Yes [id number] 600mg Take 1 [facility] 600 mg 1-13 tablet by ity of tablet 00:00: mouth [place] 00 every 6 Medical (six) Branch hours as needed for Pain (scale 4-6). ibuprofen 2018-02 Yes [id number] 600mg Take 1 [facility] 600 mg 1-13 tablet by ity of tablet 00:00: mouth [place] 00 every 6 Medical (six) Branch hours as needed for Pain (scale 4-6). ibuprofen 2018-02 Yes [id number] 600mg Take 1 [facility] 600 mg 1-13 tablet by ity of tablet 00:00: mouth [place] 00 every 6 Medical (six) Branch hours as needed for Pain (scale 4-6). ibuprofen 2018-02 Yes [id number] 600mg Take 1 [facility] 600 mg 1-13 tablet by ity of tablet 00:00: mouth [place] 00 every 6 Medical (six) Branch hours as needed for Pain (scale 4-6). ibuprofen 2018-02 Yes [id number] 600mg Take 1 [facility] 600 mg 1-13 tablet by ity of tablet 00:00: mouth [place] 00 every 6 Medical (six) Branch hours as needed for Pain (scale 4-6). ibuprofen 2018-02 Yes [id number] 600mg Take 1 [facility] 600 mg 1-13 tablet by ity of tablet 00:00: mouth [place] 00 every 6 Medical (six) Branch hours as needed for Pain (scale 4-6). ibuprofen 2018-02 Yes [id number] 600mg Take 1 [facility] 600 mg 1-13 tablet by ity of tablet 00:00: mouth [place] 00 every 6 Medical (six) Branch hours as needed for Pain (scale 4-6). ibuprofen 2018- Yes [id number] 600mg Take 1 [facility] 600 mg 1-13 tablet by ity of tablet 00:00: mouth [place] 00 every 6 Medical (six) Branch hours as needed for Pain (scale 4-6). ibuprofen 2018- Yes [id number] 600mg Take 1 [facility] 600 mg 1-13 tablet by ity of tablet 00:00: mouth [place] 00 every 6 Medical (six) Branch hours as needed for Pain (scale 4-6). ibuprofen 2018- Yes [id number] 600mg Take 1 [facility] 600 mg 1-13 tablet by ity of tablet 00:00: mouth [place] 00 every 6 Medical (six) Branch hours as needed for Pain (scale 4-6). ibuprofen 2018-02 Yes [id number] 600mg Take 1 [facility] 600 mg 1-13 tablet by ity of tablet 00:00: mouth [place] 00 every 6 Medical (six) Branch hours as needed for Pain (scale 4-6). ibuprofen 2018-02 Yes [id number] 600mg Take 1 [facility] 600 mg 1-13 tablet by ity of tablet 00:00: mouth [place] 00 every 6 Medical (six) Branch hours as needed for Pain (scale 4-6). ibuprofen 2018-02 Yes [id number] 600mg Take 1 [facility] 600 mg 1-13 tablet by ity of tablet 00:00: mouth [place] 00 every 6 Medical (six) Branch hours as needed for Pain (scale 4-6). ibuprofen 2018-02 Yes [id number] 600mg Take 1 [facility] 600 mg 1-13 tablet by ity of tablet 00:00: mouth [place] 00 every 6 Medical (six) Branch hours as needed for Pain (scale 4-6). ibuprofen 2018-02 Yes [id number] 600mg Take 1 [facility] 600 mg 1-13 tablet by ity of tablet 00:00: mouth [place] 00 every 6 Medical (six) Branch hours as needed for Pain (scale 4-6). ibuprofen 2018-02 Yes [id number] 600mg Take 1 [facility] 600 mg 1-13 tablet by ity of tablet 00:00: mouth [place] 00 every 6 Medical (six) Branch hours as needed for Pain (scale 4-6). ibuprofen 2018-02 Yes [id number] 600mg Take 1 [facility] 600 mg 1-13 tablet by ity of tablet 00:00: mouth [place] 00 every 6 Medical (six) Branch hours as needed for Pain (scale 4-6). ibuprofen 2018- Yes [id number] 600mg Take 1 [facility] 600 mg 1-13 tablet by ity of tablet 00:00: mouth [place] 00 every 6 Medical (six) Branch hours as needed for Pain (scale 4-6). ibuprofen 2018- Yes [id number] 600mg Take 1 [facility] 600 mg 1-13 tablet by ity of tablet 00:00: mouth [place] 00 every 6 Medical (six) Branch hours as needed for Pain (scale 4-6). ibuprofen 2018-02 Yes [id number] 600mg Take 1 [facility] 600 mg 1-13 tablet by ity of tablet 00:00: mouth [place] 00 every 6 Medical (six) Branch hours as needed for Pain (scale 4-6). ibuprofen 2018-02 Yes [id number] 600mg Take 1 [facility] 600 mg 1-13 tablet by ity of tablet 00:00: mouth [place] 00 every 6 Medical (six) Branch hours as needed for Pain (scale 4-6). ibuprofen 2018-02 Yes [id number] 600mg Take 1 [facility] 600 mg 1-13 tablet by ity of tablet 00:00: mouth [place] 00 every 6 Medical (six) Branch hours as needed for Pain (scale 4-6). ibuprofen 2018-02 Yes [id number] 600mg Take 1 [facility] 600 mg 1-13 tablet by ity of tablet 00:00: mouth [place] 00 every 6 Medical (six) Branch hours as needed for Pain (scale 4-6). ibuprofen 2018-02 No [id number] 600mg Take 1 [facility] 600 mg 1-13 10-24 tablet by ity of tablet 00:00: 00:00 mouth [place] 00 :00 every 6 Medical (six) Branch hours as needed for Pain (scale 4-6). cyclobenzap 2018-02- No [id number] 10mg Take 1 [facility] rine 10 mg -27 03-14 tablet by ity of tablet 00:00: 00:00 mouth 3 [place] 00 :00 (three) Medical times Branch daily. cyclobenzap 2018-02- No [id number] 10mg Take 1 [facility] rine 10 mg [...] HOURS Branch NEEDED FOR ANXIETY sodium,pota Yes [id number] Please see [facility] [place]-16 instructio ity of sulfates 00:00: [facility] (SUPREP 00 provided. Medical BOWEL PREP Branch KIT) 17.5-3.13-1 .6 gram SolR sodium,pota Yes [id number] Please see [facility],mag 6-16 instructio ity of sulfates 00:00: [facility] (SUPREP 00 provided. Medical BOWEL PREP Branch KIT) 17.5-3.13-1 .6 gram SolR sodium,pota Yes [id number] Please see [facility] [place] 6-16 instructio ity of sulfates 00:00: [facility] (SUPREP 00 provided. Medical BOWEL PREP Branch KIT) 17.5-3.13-1 .6 gram SolR sodium,pota Yes [id number] Please see [facility] [place] 6-16 instructio ity of sulfates 00:00: [facility] (SUPREP 00 provided. Medical BOWEL PREP Branch KIT) 17.5-3.13-1 .6 gram SolR sodium,pota Yes [id number] Please see [facility] [place] 6-16 instructio ity of sulfates 00:00: [facility] (SUPREP 00 provided. Medical BOWEL PREP Branch KIT) 17.5-3.13-1 .6 gram SolR sodium,pota Yes [id number] Please see [facility] [place] 6-16 instructio ity of sulfates 00:00: [facility] (SUPREP 00 provided. Medical BOWEL PREP Branch KIT) 17.5-3.13-1 .6 gram SolR sodium,pota Yes [id number] Please see [facility] [place] 6-16 instructio ity of sulfates 00:00: [facility] (SUPREP 00 provided. Medical BOWEL PREP Branch KIT) 17.5-3.13-1 .6 gram SolR sodium,pota 2016-0 Yes [id number] Please see [facility] 6-16 instructio ity of sulfates 00:00: ns [place] (SUPREP 00 provided. Medical BOWEL PREP Branch KIT) 17.5-3.13-1 .6 gram SolR sodium,pota 2016-0 Yes [id number] Please see [facility] 6-16 instructio ity of sulfates 00:00: ns [place] (SUPREP 00 provided. Medical BOWEL PREP Branch KIT) 17.5-3.13-1 .6 gram SolR sodium,pota 2016-0 Yes [id number] Please see [facility] 6-16 instructio ity of sulfates 00:00: ns [place] (SUPREP 00 provided. Medical BOWEL PREP Branch KIT) 17.5-3.13-1 .6 gram SolR sodium,pota 2016-0 Yes [id number] Please see [facility] 6-16 instructio ity of sulfates 00:00: ns [place] (SUPREP 00 provided. Medical BOWEL PREP Branch KIT) 17.5-3.13-1 .6 gram SolR sodium,pota 2016-0 Yes [id number] Please see [facility] 6-16 instructio ity of sulfates 00:00: ns [place] (SUPREP 00 provided. Medical BOWEL PREP Branch KIT) 17.5-3.13-1 .6 gram SolR sodium,pota 2016-0 Yes [id number] Please see [facility] 6-16 instructio ity of sulfates 00:00: ns [place] (SUPREP 00 provided. Medical BOWEL PREP Branch KIT) 17.5-3.13-1 .6 gram SolR sodium,pota 2016-0 Yes [id number] Please see [facility] 6-16 instructio ity of sulfates 00:00: ns [place] (SUPREP 00 provided. Medical BOWEL PREP Branch KIT) 17.5-3.13-1 .6 gram SolR sodium,pota 2016-0 Yes [id number] Please see [facility] 6-16 instructio ity of sulfates 00:00: ns [place] (SUPREP 00 provided. Medical BOWEL PREP Branch KIT) 17.5-3.13-1 .6 gram SolR sodium,pota 2016-0 Yes [id number] Please see [facility] 616 instructio ity of sulfates 00:00: ns [place] (SUPREP 00 provided. Medical BOWEL PREP Branch KIT) 17.5-3.13-1 .6 gram SolR sodium,pota 2016-0 Yes [id number] Please see [facility] 6-16 instructio ity of sulfates 00:00: [facility] (SUPREP 00 provided. Medical BOWEL PREP Branch KIT) 17.5-3.13-1 .6 gram SolR sodium,pota 2016-0 Yes [id number] Please see [facility] 6-16 instructio ity of sulfates 00:00: [facility] (SUPREP 00 provided. Medical BOWEL PREP Branch KIT) 17.5-3.13-1 .6 gram SolR sodium,pota 2016-0 Yes [id number] Please see [facility] 6-16 instructio ity of sulfates 00:00: [facility] (SUPREP 00 provided. Medical BOWEL PREP Branch KIT) 17.5-3.13-1 .6 gram SolR sodium,pota 2016-0 Yes [id number] Please see [facility] 6-16 instructio ity of sulfates 00:00: [facility] (SUPREP 00 provided. Medical BOWEL PREP Branch KIT) 17.5-3.13-1 .6 gram SolR sodium,pota 2016-0 Yes [id number] Please see [facility] 6-16 instructio ity of sulfates 00:00: [facility] (SUPREP 00 provided. Medical BOWEL PREP Branch KIT) 17.5-3.13-1 .6 gram SolR sodium,pota 2016-0 Yes [id number] Please see [facility] 6-16 instructio ity of sulfates 00:00: [facility] (SUPREP 00 provided. Medical BOWEL PREP Branch KIT) 17.5-3.13-1 .6 gram SolR sodium,pota 2016-0 Yes [id number] Please see [facility] 6-16 instructio ity of sulfates 00:00: [facility] (SUPREP 00 provided. Medical BOWEL PREP Branch KIT) 17.5-3.13-1 .6 gram SolR sodium,pota 2016-0 Yes [id number] Please see [facility] 6-16 instructio ity of sulfates 00:00: [facility] (SUPREP 00 provided. Medical BOWEL PREP Branch KIT) 17.5-3.13-1 .6 gram SolR sodium,pota 2016-0 Yes [id number] Please see [facility] 6-16 instructio ity of sulfates 00:00: ns [place] (SUPREP 00 provided. Medical BOWEL PREP Branch KIT) 17.5-3.13-1 .6 gram SolR sodium,pota 2016-0 Yes [id number] Please see [facility] 6-16 instructio ity of sulfates 00:00: ns [place] (SUPREP 00 provided. Medical BOWEL PREP Branch KIT) 17.5-3.13-1 .6 gram SolR sodium,pota 2016-0 Yes [id number] Please see [facility] [place] 6-16 instructio ity of sulfates 00:00: [facility] (SUPREP 00 provided. Medical BOWEL PREP Branch KIT) 17.5-3.13-1 .6 gram SolR sodium,pota 2016-0 Yes [id number] Please see [facility] [place] 6-16 instructio ity of sulfates 00:00: [facility] (SUPREP 00 provided. Medical BOWEL PREP Branch KIT) 17.5-3.13-1 .6 gram SolR sodium,pota 2016-0 Yes [id number] Please see [facility] [place] 6-16 instructio ity of sulfates 00:00: [facility] (SUPREP 00 provided. Medical BOWEL PREP Branch KIT) 17.5-3.13-1 .6 gram SolR sodium,pota 2016-0 Yes [id number] Please see [facility] [place] 6-16 instructio ity of sulfates 00:00: [facility] (SUPREP 00 provided. Medical BOWEL PREP Branch KIT) 17.5-3.13-1 .6 gram SolR sodium,pota 2016-0 Yes [id number] Please see [facility] [place] 6-16 instructio ity of sulfates 00:00: [facility] (SUPREP 00 provided. Medical BOWEL PREP Branch KIT) 17.5-3.13-1 .6 gram SolR sodium,pota 2016-0 Yes [id number] Please see [facility] [place] 6-16 instructio ity of sulfates 00:00: [facility] (SUPREP 00 provided. Medical BOWEL PREP Branch KIT) 17.5-3.13-1 .6 gram SolR sodium,pota 2016-0 Yes [id number] Please see [facility] 6-16 instructio ity of sulfates 00:00: ns [place] (SUPREP 00 provided. Medical BOWEL PREP Branch KIT) 17.5-3.13-1 .6 gram SolR sodium,pota 2020- No [id number] Please see [facility] 6-16 04-18 instructio ity of sulfates 00:00: 00:00 ns [place] (SUPREP 00 :00 provided. Medical BOWEL PREP [...] 15 mcg/hour 00 :00 24 Medical [facility] ([facility] ur) hours. ondansetron 20160 [...] 5-18 ity of mg tablet 00:00: [facility] [place] ondansetron 2016-0 Yes Univer s (ZOFRAN) 4 [...] 4 5-18 ity of mg tablet 00:00: [place] [facility] ondansetron 2016 Yes Univer s (ZOFRAN) 4 5-18 ity of mg tablet 00:00: [place] [facility] ondansetron Yes Univer s (ZOFRAN) 4 5-18 ity of mg tablet 00:00: [place] [facility] ondansetron Yes Univer s (ZOFRAN) 4 5-18 ity of mg tablet 00:00: Medical Branch ondansetron Yes Univer s (ZOFRAN) 4 5-18 ity of mg tablet 00:00: [place] [facility] Branch ondansetron Yes Univer s (ZOFRAN) 4 5-18 ity of mg tablet 00:00: [facility] Branch ondansetron 0 2020- No Unive rs (ZOFRAN) 4 5-18 04-14 ity of mg tablet 00:00: 00:00 [place] 00 :00 Medical Branch LYRICA 75 2020- No Univers mg capsule 06-29 02-14 ity of 00:00: 00:00 [place] 00 :00 Medical Branch LYRICA 75 2020- No Univers mg capsule 18 02-14 ity of 00:00: 00:00 [place] 00 :00 [facility] Branch mesalamine Yes 1000mg Take 2 Uni [...] 0.4 mg 24 00:00: daily. [place] capsule [facility] Branch tamsulosin 2014-02 Yes .4mg Take 1 Cap U nivers (FLOMAX) 0-20 by mouth ity of 0.4 mg 24 00:00: daily. [place] hr capsule [facility] Branch tamsulosin 2014-02 Yes .4mg Take 1 Cap U nivers (FLOMAX) 0-20 by mouth ity of 0.4 mg 24 00:00: daily. [place] hr capsule [facility] Branch tamsulosin 2014-02 Yes .4mg Take 1 Cap U nivers (FLOMAX) 0-20 by mouth ity of 0.4 mg 24 00:00: daily. [place] hr capsule [facility] Branch tamsulosin 2014-02 Yes .4mg Take 1 Cap U nivers (FLOMAX) 0-20 by mouth ity of 0.4 mg 24 00:00: daily. [place] hr capsule [facility] Branch tamsulosin 2014-02 Yes .4mg Take 1 Cap U nivers (FLOMAX) 0-20 by mouth ity of 0.4 mg 24 00:00: daily. [place] hr capsule [facility] Branch tamsulosin 2014-02 Yes .4mg Take 1 Cap U nivers (FLOMAX) 0-20 by mouth ity of 0.4 mg 24 00:00: daily. [facility] capsule [facility] Branch tamsulosin 2014-02 Yes .4mg Take 1 Cap U nivers (FLOMAX) 0-20 by mouth ity of 0.4 mg 24 00:00: daily. [facility] capsule [facility] Branch tamsulosin 2014-02 Yes .4mg Take 1 Cap U nivers (FLOMAX) 0-20 by mouth ity of 0.4 mg 24 00:00: daily. [facility] capsule [facility] tamsulosin 2014-02 Yes .4mg Take 1 Cap U nivers (FLOMAX) 0-20 by mouth ity of 0.4 mg 24 00:00: daily. [facility] capsule [facility] tamsulosin 2014-02 Yes .4mg Take 1 Cap U nivers (FLOMAX) 0-20 by mouth ity of 0.4 mg 24 00:00: daily. [facility] capsule [facility] tamsulosin 2014-02 Yes .4mg Take 1 Cap U nivers (FLOMAX) 0-20 by mouth ity of 0.4 mg 24 00:00: daily. [facility] capsule [facility] tamsulosin 2014-02 Yes .4mg Take 1 Cap U nivers (FLOMAX) 0-20 by mouth ity of 0.4 mg 24 00:00: daily. [facility] capsule [facility] tamsulosin 2014-02 Yes .4mg Take 1 Cap U nivers (FLOMAX) 0-20 by mouth ity of 0.4 mg 24 00:00: daily. [facility] capsule [facility] tamsulosin 2014-02 Yes .4mg Take 1 Cap U nivers (FLOMAX) 0-20 by mouth ity of 0.4 mg 24 00:00: daily. [facility] capsule [facility] Branch tamsulosin 2014-02 Yes .4mg Take 1 Cap U nivers (FLOMAX) 0-20 by mouth ity of 0.4 mg 24 00:00: daily. [facility] capsule [facility] Branch tamsulosin 2014-02 Yes .4mg Take 1 Cap U nivers (FLOMAX) 0-20 by mouth ity of 0.4 mg 24 00:00: daily. [facility] capsule [facility] tamsulosin 2014-02 Yes .4mg Take 1 Cap U nivers (FLOMAX) 0-20 by mouth ity of 0.4 mg 24 00:00: daily. [facility] capsule [facility] tamsulosin 2014-02 Yes .4mg Take 1 Cap U nivers (FLOMAX) 0-20 by mouth ity of 0.4 mg 24 00:00: daily. [facility] capsule [facility] tamsulosin 2014-02 Yes .4mg Take 1 Cap U nivers (FLOMAX) 0-20 by mouth ity of 0.4 mg 24 00:00: daily. [facility] capsule [facility] tamsulosin 2014-02 Yes .4mg Take 1 Cap U nivers (FLOMAX) 0-20 by mouth ity of 0.4 mg 24 00:00: daily. [facility] capsule [facility] tamsulosin 2014-02 Yes .4mg Take 1 Cap U nivers (FLOMAX) 0-20 by mouth ity of 0.4 mg 24 00:00: daily. [facility] [place] [facility] tamsulosin 2014-02 Yes .4mg Take 1 Cap U nivers (FLOMAX) 0-20 by mouth ity of 0.4 mg 24 00:00: daily. [facility] [place] [facility] tamsulosin 2014-02 Yes .4mg Take 1 Cap U nivers (FLOMAX) 0-20 by mouth ity of 0.4 mg 24 00:00: daily. [facility] capsule [facility] tamsulosin 2014-02 Yes .4mg Take 1 Cap U nivers (FLOMAX) 0-20 by mouth ity of 0.4 mg 24 00:00: daily. [facility] [place] [facility] tamsulosin 2014-02 Yes .4mg Take 1 Cap U nivers (FLOMAX) 0-20 by mouth ity of 0.4 mg 24 00:00: daily. [facility] [place] [facility] tamsulosin 2014-02 Yes .4mg Take 1 Cap U nivers (FLOMAX) 0-20 by mouth ity of 0.4 mg 24 00:00: daily. [facility] capsule [facility] tamsulosin 2014-02 Yes .4mg Take 1 Cap U nivers (FLOMAX) 0-20 by mouth ity of 0.4 mg 24 00:00: daily. [facility] [place] [facility] tamsulosin 2014-02- No .4mg Take 1 Cap Univers (FLOMAX) 0-20 - by mouth ity of 0.4 mg 24 00:00: 00:00 daily. [place] hr capsule 00 :00 Medical Branch [place] Yes [place] [address] [facility] [...] Immunizations Ordered Filled Immunization Date Status Comments [facility] e Immunization Name Name Twinrix (hep a/hep 2015-07-29 Completed Univer sity of b) 00:00:00 [facility] Twinrix (hep a/hep 2015-07-29 Completed Univer sity of b) 00:00:00 [facility] Branch Twinrix (hep a/hep 2015-07-29 Completed Univer sity of b) 00:00:00 [facility] Twinrix (hep a/hep 2015-07-29 Completed Univer sity of b) 00:00:00 [facility] Twinrix (hep a/hep 2015-07-29 Completed Univer sity of b) 00:00:00 [facility] Twinrix (hep a/hep 2015-07-29 Completed Univer sity of b) 00:00:00 [facility] Twinrix (hep a/hep 2015-07-29 Completed Univer sity of b) 00:00:00 [facility] Twinrix (hep a/hep 2015-07-29 Completed Univer sity of b) 00:00:00 [facility] Twinrix (hep a/hep 2015-07-29 Completed Univer sity of b) 00:00:00 [facility] Twinrix (hep a/hep 2015-07-29 Completed Univer sity of b) 00:00:00 [facility] Twinrix (hep a/hep 2015-07-29 Completed Univer sity of b) 00:00:00 [facility] Twinrix (hep a/hep 2015-07-29 Completed Univer sity of b) 00:00:00 [place] [facility] Twinrix (hep a/hep 2015-07-29 Completed Univer sity of b) 00:00:00 [place] [facility] Twinrix (hep a/hep 2015-07-29 Completed Univer sity of b) 00:00:00 [place] [facility] Twinrix (hep a/hep 2015-07-29 Completed Univer sity of b) 00:00:00 [place] [facility] Twinrix (hep a/hep 2015-07-29 Completed Univer sity of b) 00:00:00 [facility] Twinrix (hep a/hep 2015-07-29 Completed Univer sity of b) 00:00:00 [facility] Twinrix (hep a/hep 2015-07-29 Completed Univer sity of b) 00:00:00 [facility] Twinrix (hep a/hep 2015-07-29 Completed Univer sity of b) 00:00:00 [facility] Twinrix (hep a/hep 2015-07-29 Completed Univer sity of b) 00:00:00 [facility] Twinrix (hep a/hep 2015-07-29 Completed Univer sity of b) 00:00:00 [facility] Twinrix (hep a/hep 2015-07-29 Completed Univer sity of b) 00:00:00 [place] [facility] Twinrix (hep a/hep 2015-07-29 Completed Univer sity of b) 00:00:00 [place] [facility] Twinrix (hep a/hep 2015-07-29 Completed Univer sity of b) 00:00:00 [place] [facility] Twinrix (hep a/hep 2015-07-29 Completed Univer sity of b) 00:00:00 [place] [facility] Twinrix (hep a/hep 2015-07-29 Completed Univer sity of b) 00:00:00 [place] [facility] Twinrix (hep a/hep 2015-07-29 Completed Univer sity of b) 00:00:00 [facility] Twinrix (hep a/hep 2015-07-29 Completed Univer sity of b) 00:00:00 [place] [facility] Twinrix (hep a/hep 2015-07-29 Completed Univer sity of b) 00:00:00 [facility] Twinrix (hep a/hep 2015-07-29 Completed Univer sity of b) 00:00:00 [place] [facility] Twinrix (hep a/hep 2015-07-29 Completed Univer sity of b) 00:00:00 [facility] Twinrix (hep a/hep 2015-07-29 Completed Univer sity of b) 00:00:00 [facility] Twinrix (hep a/hep 2015-07-29 Completed Univer sity of b) 00:00:00 [facility] Twinrix (hep a/hep 2015-07-29 Completed Univer sity of b) 00:00:00 [facility] Twinrix (hep a/hep 2015-07-29 Completed Univer sity of b) 00:00:00 [facility] Twinrix (hep a/hep 2015-07-29 Completed Univer sity of b) 00:00:00 [facility] Twinrix (hep a/hep 2015-07-29 Completed Univer sity of b) 00:00:00 [facility] Twinrix (hep a/hep 2015-07-29 Completed Univer sity of b) 00:00:00 [facility] Twinrix (hep a/hep 2015-07-29 Completed Univer sity of b) 00:00:00 [facility] Twinrix (hep a/hep 2015-07-29 Completed Univer sity of b) 00:00:00 [facility] Twinrix (hep a/hep 2015-07-29 Completed Univer sity of b) 00:00:00 [facility] Twinrix (hep a/hep 2015-07-29 Completed Univer sity of b) 00:00:00 [facility] Twinrix (hep a/hep 2015-07-29 Completed Univer sity of b) 00:00:00 [facility] Twinrix (hep a/hep 2015-07-29 Completed Univer sity of b) 00:00:00 [facility] Twinrix (hep a/hep 2015-07-29 Completed Univer sity of b) 00:00:00 [facility] Twinrix (hep a/hep 2015-07-29 Completed Univer sity of b) 00:00:00 [facility] Twinrix (hep a/hep 2015-07-29 Completed Univer sity of b) 00:00:00 [facility] Twinrix (hep a/hep 2015-07-29 Completed Univer sity of b) 00:00:00 [facility] Twinrix (hep a/hep 2015-07-29 Completed Univer sity of b) 00:00:00 [facility] Twinrix (hep a/hep 2015-07-29 Completed Univer sity of b) 00:00:00 [facility] Twinrix (hep a/hep 2015-07-29 Completed Univer sity of b) 00:00:00 [facility] Twinrix (hep a/hep 2015-07-29 Completed Univer sity of b) 00:00:00 [facility] Twinrix (hep a/hep 2015-07-29 Completed Univer sity of b) 00:00:00 [facility] Twinrix (hep a/hep 2015-07-29 Completed Univer sity of b) 00:00:00 [facility] Twinrix (hep a/hep 2015-07-29 Completed Univer sity of b) 00:00:00 [facility] Twinrix (hep a/hep 2015-07-29 Completed Univer sity of b) 00:00:00 [facility] Twinrix (hep a/hep 2015-07-29 Completed Univer sity of b) 00:00:00 [facility] Twinrix (hep a/hep 2015-07-29 Completed Univer sity of b) 00:00:00 [facility] Twinrix (hep a/hep 2015-07-29 Completed Univer sity of b) 00:00:00 [facility] Twinrix (hep a/hep 2015-07-29 Completed Univer sity of b) 00:00:00 [facility] Twinrix (hep a/hep 2015-07-29 Completed Univer sity of b) 00:00:00 [facility] Influenza Virus 2015-06-29 Completed Universit y of Vaccine Quad IM 3+ 00:00:00 [facility] Influenza Virus 2015-06-29 Completed Universit y of Vaccine Quad IM 3+ 00:00:00 [facility] Influenza Virus 2015-06-29 Completed Universit y of Vaccine Quad IM 3+ 00:00:00 [facility] Influenza Virus 2015-06-29 Completed Universit y of Vaccine Quad IM 3+ 00:00:00 [facility] Influenza Virus 2015-06-29 Completed Universit y of Vaccine Quad IM 3+ 00:00:00 [facility] Influenza Virus 2015-06-29 Completed Universit y of Vaccine Quad IM 3+ 00:00:00 [facility] Influenza Virus 2015-06-29 Completed Universit y of Vaccine Quad IM 3+ 00:00:00 [facility] Influenza Virus 2015-06-29 Completed Universit y of Vaccine Quad IM 3+ 00:00:00 [facility] Influenza Virus 2015-06-29 Completed Universit y of Vaccine Quad IM 3+ 00:00:00 [facility] Influenza Virus 2015-06-29 Completed Universit y of Vaccine Quad IM 3+ 00:00:00 [facility] Influenza Virus 2015-06-29 Completed Universit y of Vaccine Quad IM 3+ 00:00:00 [facility] Influenza Virus 2015-06-29 Completed Universit y of Vaccine Quad IM 3+ 00:00:00 [facility] Influenza Virus 2015-06-29 Completed Universit y of Vaccine Quad IM 3+ 00:00:00 [facility] Influenza Virus 2015-06-29 Completed Universit y of Vaccine Quad IM 3+ 00:00:00 [facility] Influenza Virus 2015-06-29 Completed Universit y of Vaccine Quad IM 3+ 00:00:00 [facility] Influenza Virus 2015-06-29 Completed Universit y of Vaccine Quad IM 3+ 00:00:00 [facility] Influenza Virus 2015-06-29 Completed Universit y of Vaccine Quad IM 3+ 00:00:00 [facility] Influenza Virus 2015-06-29 Completed Universit y of Vaccine Quad IM 3+ 00:00:00 [facility] Influenza Virus 2015-06-29 Completed Universit y of Vaccine Quad IM 3+ 00:00:00 [facility] Influenza Virus 2015-06-29 Completed Universit y of Vaccine Quad IM 3+ 00:00:00 [facility] Influenza Virus 2015-06-29 Completed Universit y of Vaccine Quad IM 3+ 00:00:00 [facility] Influenza Virus 2015-06-29 Completed Universit y of Vaccine Quad IM 3+ 00:00:00 [facility] Influenza Virus 2015-06-29 Completed Universit y of Vaccine Quad IM 3+ 00:00:00 [facility] Influenza Virus 2015-06-29 Completed Universit y of Vaccine Quad IM 3+ 00:00:00 [facility] Influenza Virus 2015-06-29 Completed Universit y of Vaccine Quad IM 3+ 00:00:00 [facility] Influenza Virus 2015-06-29 Completed Universit y of Vaccine Quad IM 3+ 00:00:00 [facility] Influenza Virus 2015-06-29 Completed Universit y of Vaccine Quad IM 3+ 00:00:00 [facility] Influenza Virus 2015-06-29 Completed Universit y of Vaccine Quad IM 3+ 00:00:00 [facility] Influenza Virus 2015-06-29 Completed Universit y of Vaccine Quad IM 3+ 00:00:00 [facility] Influenza Virus 2015-06-29 Completed Universit y of Vaccine Quad IM 3+ 00:00:00 [facility] Influenza Virus 2015-06-29 Completed Universit y of Vaccine Quad IM 3+ 00:00:00 [facility] Influenza Virus 2015-06-29 Completed Universit y of Vaccine Quad IM 3+ 00:00:00 [facility] Influenza Virus 2015-06-29 Completed Universit y of Vaccine Quad IM 3+ 00:00:00 [facility] Influenza Virus 2015-06-29 Completed Universit y of Vaccine Quad IM 3+ 00:00:00 [facility] Influenza Virus 2015-06-29 Completed Universit y of Vaccine Quad IM 3+ 00:00:00 [facility] Influenza Virus 2015-06-29 Completed Universit y of Vaccine Quad IM 3+ 00:00:00 [facility] Influenza Virus 2015-06-29 Completed Universit y of Vaccine Quad IM 3+ 00:00:00 [facility] Influenza Virus 2015-06-29 Completed Universit y of Vaccine Quad IM 3+ 00:00:00 [facility] Influenza Virus 2015-06-29 Completed Universit y of Vaccine Quad IM 3+ 00:00:00 [facility] Influenza Virus 2015-06-29 Completed Universit y of Vaccine Quad IM 3+ 00:00:00 [facility] Influenza Virus 2015-06-29 Completed Universit y of Vaccine Quad IM 3+ 00:00:00 [facility] Influenza Virus 2015-06-29 Completed Universit y of Vaccine Quad IM 3+ 00:00:00 [facility] Influenza Virus 2015-06-29 Completed Universit y of Vaccine Quad IM 3+ 00:00:00 [facility] Influenza Virus 2015-06-29 Completed Universit y of Vaccine Quad IM 3+ 00:00:00 [facility] Influenza Virus 2015-06-29 Completed Universit y of Vaccine Quad IM 3+ 00:00:00 [facility] Influenza Virus 2015-06-29 Completed Universit y of Vaccine Quad IM 3+ 00:00:00 [facility] Influenza Virus 2015-06-29 Completed Universit y of Vaccine Quad IM 3+ 00:00:00 [facility] Influenza Virus 2015-06-29 Completed Universit y of Vaccine Quad IM 3+ 00:00:00 [facility] Influenza Virus 2015-06-29 Completed Universit y of Vaccine Quad IM 3+ 00:00:00 [facility] Influenza Virus 2015-06-29 Completed Universit y of Vaccine Quad IM 3+ 00:00:00 [facility] Influenza Virus 2015-06-29 Completed Universit y of Vaccine Quad IM 3+ 00:00:00 [facility] Influenza Virus 2015-06-29 Completed Universit y of Vaccine Quad IM 3+ 00:00:00 [facility] Influenza Virus 2015-06-29 Completed Universit y of Vaccine Quad IM 3+ 00:00:00 [facility] Influenza Virus 2015-06-29 Completed Universit y of Vaccine Quad IM 3+ 00:00:00 [facility] Influenza Virus 2015-06-29 Completed Universit y of Vaccine Quad IM 3+ 00:00:00 [facility] Influenza Virus 2015-06-29 Completed Universit y of Vaccine Quad IM 3+ 00:00:00 [facility] Influenza Virus 2015-06-29 Completed Universit y of Vaccine Quad IM 3+ 00:00:00 [facility] Influenza Virus 2015-06-29 Completed Universit y of Vaccine Quad IM 3+ 00:00:00 [facility] Influenza Virus 2015-06-29 Completed Universit y of Vaccine Quad IM 3+ 00:00:00 [facility] Influenza Virus 2015-06-29 Completed Universit y of Vaccine Quad IM 3+ 00:00:00 [facility] Influenza Virus 2015-06-29 Completed Universit y of Vaccine Quad IM 3+ 00:00:00 [facility] Twinrix (hep a/hep 2015-06-28 Completed Univer sity of b) 00:00:00 [facility] [facility] (hep a/hep 2015-06-28 Completed Univer sity of b) 00:00:00 [facility] (hep a/hep 2015-06-28 Completed Univer sity of b) 00:00:00 [facility] (hep a/hep 2015-06-28 Completed Univer sity of b) 00:00:00 [facility] (hep a/hep 2015-06-28 Completed Univer sity of b) 00:00:00 [facility] (hep a/hep 2015-06-28 Completed Univer sity of b) 00:00:00 [facility] (hep a/hep 2015-06-28 Completed Univer sity of b) 00:00:00 [facility] (hep a/hep 2015-06-28 Completed Univer sity of b) 00:00:00 [facility] (hep a/hep 2015-06-28 Completed Univer sity of b) 00:00:00 [facility] (hep a/hep 2015-06-28 Completed Univer sity of b) 00:00:00 [facility] (hep a/hep 2015-06-28 Completed Univer sity of b) 00:00:00 [facility] (hep a/hep 2015-06-28 Completed Univer sity of b) 00:00:00 [facility] (hep a/hep 2015-06-28 Completed Univer sity of b) 00:00:00 [facility] (hep a/hep 2015-06-28 Completed Univer sity of b) 00:00:00 [facility] (hep a/hep 2015-06-28 Completed Univer sity of b) 00:00:00 [facility] (hep a/hep 2015-06-28 Completed Univer sity of b) 00:00:00 [facility] (hep a/hep 2015-06-28 Completed Univer sity of b) 00:00:00 [facility] (hep a/hep 2015-06-28 Completed Univer sity of b) 00:00:00 [facility] (hep a/hep 2015-06-28 Completed Univer sity of b) 00:00:00 [facility] (hep a/hep 2015-06-28 Completed Univer sity of b) 00:00:00 [facility] (hep a/hep 2015-06-28 Completed Univer sity of b) 00:00:00 [facility] (hep a/hep 2015-06-28 Completed Univer sity of b) 00:00:00 [facility] (hep a/hep 2015-06-28 Completed Univer sity of b) 00:00:00 [facility] (hep a/hep 2015-06-28 Completed Univer sity of b) 00:00:00 [facility] (hep a/hep 2015-06-28 Completed Univer sity of b) 00:00:00 [facility] (hep a/hep 2015-06-28 Completed Univer sity of b) 00:00:00 [facility] (hep a/hep 2015-06-28 Completed Univer sity of b) 00:00:00 [facility] (hep a/hep 2015-06-28 Completed Univer sity of b) 00:00:00 [facility] (hep a/hep 2015-06-28 Completed Univer sity of b) 00:00:00 [facility] (hep a/hep 2015-06-28 Completed Univer sity of b) 00:00:00 [facility] (hep a/hep 2015-06-28 Completed Univer sity of b) 00:00:00 [facility] (hep a/hep 2015-06-28 Completed Univer sity of b) 00:00:00 [facility] (hep a/hep 2015-06-28 Completed Univer sity of b) 00:00:00 [facility] (hep a/hep 2015-06-28 Completed Univer sity of b) 00:00:00 [facility] (hep a/hep 2015-06-28 Completed Un[facility] sity of b) 00:00:00 [facility] (hep a/hep 2015-06-28 Completed Univer sity of b) 00:00:00 [facility] (hep a/hep 2015-06-28 Completed Univer sity of b) 00:00:00 [facility] (hep a/hep 2015-06-28 Completed Univer sity of b) 00:00:00 [facility] (hep a/hep 2015-06-28 Completed Univer sity of b) 00:00:00 [facility] (hep a/hep 2015-06-28 Completed Univer sity of b) 00:00:00 [facility] (hep a/hep 2015-06-28 Completed Univer sity of b) 00:00:00 [facility] (hep a/hep 2015-06-28 Completed Univer sity of b) 00:00:00 [facility] (hep a/hep 2015-06-28 Completed Univer sity of b) 00:00:00 [facility] (hep a/hep 2015-06-28 Completed Univer sity of b) 00:00:00 [facility] (hep a/hep 2015-06-28 Completed Univer sity of b) 00:00:00 [facility] (hep a/hep 2015-06-28 Completed Univer sity of b) 00:00:00 [facility] (hep a/hep 2015-06-28 Completed Univer sity of b) 00:00:00 [facility] (hep a/hep 2015-06-28 Completed Univer sity of b) 00:00:00 [facility] (hep a/hep 2015-06-28 Completed Univer sity of b) 00:00:00 [facility] (hep a/hep 2015-06-28 Completed Univer sity of b) 00:00:00 [facility] (hep a/hep 2015-06-28 Completed Univer sity of b) 00:00:00 [facility] (hep a/hep 2015-06-28 Completed Univer sity of b) 00:00:00 [facility] (hep a/hep 2015-06-28 Completed Univer sity of b) 00:00:00 [facility] (hep a/hep 2015-06-28 Completed Univer sity of b) 00:00:00 [facility] (hep a/hep 2015-06-28 Completed Univer sity of b) 00:00:00 [facility] (hep a/hep 2015-06-28 Completed Univer sity of b) 00:00:00 [facility] (hep a/hep 2015-06-28 Completed Univer sity of b) 00:00:00 [facility] (hep a/hep 2015-06-28 Completed Univer sity of b) 00:00:00 [facility] (hep a/hep 2015-06-28 Completed Univer sity of b) 00:00:00 [facility] (hep a/hep 2015-06-28 Completed Univer sity of b) 00:00:00 [facility] (hep a/hep 2015-06-28 Completed Univer sity of b) 00:00:00 [facility] Vital Signs Vital Name Observation Time Observation Value Comments Source Systolic blood 2020-12-12 16:16:00 97 mm[Hg] Univer sity of pressure [facility] Diastolic blood 2020-12-12 16:16:00 67 mm[Hg] Unive rsity of pressure [facility] Heart rate 2020-12-12 16:16:00 97 /min [facility] Body temperature 2020-12-12 16:16:00 37.67 Briseida [facility] rate 2020-12-12 16:16:00 18 /min [facility] Oxygen saturation in 2020-12-12 16:16:00 93 /min [facility] Arterial blood by [facility] Pulse oximetry Branch Body weight 2020-12-12 08:45:00 95.391 kg [facility] BMI 2020-12-12 08:45:00 32.94 kg/m2 [facility] Body height 2020-12-05 22:36:00 170.2 cm [facility] Systolic blood 2020-07-14 22:03:00 156 mm[Hg] Univer sity of pressure [facility] Diastolic blood 2020-07-14 22:03:00 93 mm[Hg] Unive rsity of pressure [facility] Heart rate 2020-07-14 22:03:00 84 /min [facility] Respiratory rate 2020-07-14 22:03:00 20 /min [facility] Oxygen saturation in 2020-07-14 22:03:00 98 /min [facility] Arterial blood by [place] [employer] Pulse oximetry Branch Body temperature 2020-07-14 03:11:00 36.67 Briseida [facility] Body weight 2020-07-13 20:13:00 83.898 kg [facility] BMI 2020-07-13 20:13:00 28.97 kg/m2 [facility] Systolic blood 2020-07-13 15:43:00 119 mm[Hg] Univer sity of pressure [facility] Diastolic blood 2020-07-13 15:43:00 77 mm[Hg] Unive rsity of pressure [facility] Heart rate 2020-07-13 15:43:00 68 /min [facility] Oxygen saturation in 2020-07-13 15:43:00 95 /min [facility] Arterial blood by [facility]ernadine Pulse oximetry Branch Systolic blood 2020-07-07 04:00:00 142 mm[Hg] Univer sity of pressure [facility] Diastolic blood 2020-07-07 04:00:00 94 mm[Hg] Unive rsity of pressure [facility] Heart rate 2020-07-07 04:00:00 73 /min [facility] Respiratory rate 2020-07-07 04:00:00 13 /min [facility] Oxygen saturation in 2020-07-07 04:00:00 99 /min [facility] Arterial blood by [place] [employer] Pulse oximetry [facility] Body temperature 2020-07-07 00:04:24 36.83 Briseida [facility] Body weight 2020-07-06 23:44:00 86.183 kg [facility] BMI 2020-07-06 23:44:00 29.76 kg/m2 [facility] Systolic blood 2020-07-04 21:16:00 142 mm[Hg] Univer [facility]ity of pressure [facility] Diastolic blood 2020-07-04 21:16:00 93 mm[Hg] Unive rsity of pressure [facility] Heart rate 2020-07-04 21:16:00 72 /min [facility] Respiratory rate 2020-07-04 21:16:00 18 /min [facility] Oxygen saturation in 2020-07-04 21:16:00 97 /min [facility] Arterial blood by [place] [employer] Pulse oximetry [facility] Body temperature 2020-07-04 17:14:00 36.89 Briseida [facility] Body weight 2020-07-04 17:14:00 86.183 kg [facility] BMI 2020-07-04 17:14:00 29.76 kg/m2 [facility] Systolic blood 2020-06-28 20:07:00 110 mm[Hg] Univer sity of pressure [facility] Diastolic blood 2020-06-28 20:07:00 67 mm[Hg] Unive rsity of pressure [facility] Heart rate 2020-06-28 20:07:00 57 /min [facility] Body temperature 2020-06-28 20:07:00 36.83 Briseida [facility] Respiratory rate 2020-06-28 20:07:00 16 /min [facility] Oxygen saturation in 2020-06-28 20:07:00 99 /min [facility] Arterial blood by [place] [employer] Pulse oximetry Branch Body height 2020-06-27 03:02:00 170.2 cm [facility] Body weight 2020-06-27 03:02:00 83.008 kg [facility] BMI 2020-06-27 03:02:00 28.66 kg/m2 [facility] Systolic blood 2020-06-02 16:17:00 133 mm[Hg] Univer sity of pressure [facility] Diastolic blood 2020-06-02 16:17:00 89 mm[Hg] Unive rsity of pressure [facility] Heart rate 2020-06-02 16:17:00 72 /min [facility] Body temperature 2020-06-02 16:17:00 36.17 Briseida [facility] Respiratory rate 2020-06-02 16:17:00 20 /min [facility] Oxygen saturation in 2020-06-02 16:17:00 96 /min [facility] Arterial blood by [facility] Pulse oximetry Branch Body height 2020-05-30 22:29:00 170.2 cm [facility] Body weight 2020-05-30 22:29:00 81.647 kg [facility] BMI 2020-05-30 22:29:00 28.19 kg/m2 [facility] Systolic blood 2020-05-27 02:05:00 118 mm[Hg] Univer [facility]ity of pressure [facility] Diastolic blood 2020-05-27 02:05:00 73 mm[Hg] Unive rsity [facility] Heart rate 2020-05-27 02:05:00 80 /min [facility] Respiratory rate 2020-05-27 02:05:00 10 /min [facility] Oxygen saturation in 2020-05-27 02:05:00 93 /min [facility] Arterial blood by [facility] Pulse oximetry Branch Body temperature 2020-05-26 23:07:00 37.22 Briseida [facility] Body height 2020-05-26 23:07:00 170.2 [...] 2020-05-13 22:00:00 16 /min [facility] Oxygen saturation in 2020-05-13 22:00:00 100 /min [facility] Arterial blood by [facility] Pulse oximetry Branch Body temperature 2020-05-13 16:33:00 37.56 Briseida [facility] Body weight 2020-05-13 16:33:00 77.111 kg [facility] BMI 2020-05-13 16:33:00 26.63 kg/m2 [facility] Systolic blood 2020-05-13 15:28:00 135 mm[Hg] Univer [facility]ity of pressure [facility] Diastolic blood 2020-05-13 15:28:00 88 mm[Hg] Unive rsity of pressure [facility] Heart rate 2020-05-13 15:28:00 80 /min [facility] Body temperature 2020-05-13 15:28:00 36.67 Briseida [facility] Respiratory rate 2020-05-13 15:28:00 18 /min [facility] Body height 2020-05-13 15:28:00 170.2 cm [facility] Body weight 2020-05-13 15:28:00 77.111 kg [facility] BMI 2020-05-13 15:28:00 26.63 kg/m2 [facility] Oxygen saturation in 2020-05-13 15:28:00 99 /min [facility] Arterial blood by [facility] Pulse oximetry Branch Systolic blood 2020-03-23 15:48:00 130 mm[Hg] Univer sity of pressure [facility] Diastolic blood 2020-03-23 15:48:00 89 mm[Hg] Unive rsity of pressure [facility] Heart rate 2020-03-23 15:48:00 95 /min [facility] Body height 2020-03-23 15:48:00 170.2 cm [facility] Body weight 2020-03-23 15:48:00 83.008 kg [facility] BMI 2020-03-23 15:48:00 28.66 kg/m2 [facility] Oxygen saturation in 2020-03-23 15:48:00 100 /min [facility] Arterial blood by [facility] Pulse oximetry Branch Systolic blood 2019-12-08 18:48:47 99 mm[Hg] Univer [facility]ity of pressure [facility] Diastolic blood 2019-12-08 18:48:47 70 mm[Hg] Unive rsity of pressure [facility] Heart rate 2019-12-08 18:48:47 63 /min [facility]i [facility] of [facility] Respiratory rate 2019-12-08 18:48:47 18 /min [facility] Oxygen saturation in 2019-12-08 18:48:47 100 /min [facility] Arterial blood by [facility] Pulse oximetry Branch Body temperature 2019-12-08 16:07:00 37 Briseida [facility] ersity of [facility] Body height 2019-12-08 16:07:00 170.2 cm [facility] Body weight 2019-12-08 16:07:00 81.647 kg [facility] BMI 2019-12-08 16:07:00 28.19 kg/m2 [facility] Systolic blood 2019-12-08 15:11:00 119 mm[Hg] Univer sity of pressure [facility] Diastolic blood 2019-12-08 15:11:00 80 mm[Hg] Unive rsity of pressure [facility] Heart rate 2019-12-08 15:11:00 83 /min [facility] Body temperature 2019-12-08 15:11:00 36.44 Briseida Univ ersity of [facility] Respiratory rate 2019-12-08 15:11:00 18 /min Univ ersity of [facility] Body weight 2019-12-08 15:11:00 82.827 kg [facility] BMI 2019-12-08 15:11:00 28.60 kg/m2 [facility] Procedures Procedure Date / Time Performing Clinician Source Performed PHOSPHORUS 2020-12-12 10:06:00 shakir [facility] MAGNESIUM 2020-12-12 10:06:00 [facility] BASIC METABOLIC PANEL 2020-12-12 10:06:00 [facility] ([facility], K, CL, CO2, GLUCOSE, Medica l Branch BUN, CREATININE, CA) VANCOMYCIN RANDOM LEVEL 2020-12-11 14:30:00 Nasir Fowler [facility] OSMOLALITY URINE 2020-12-11 10:41:00 Nicole Sanchez [facility] CREATININE, URINE RANDOM 2020-12-11 10:39:00 [facility], URINE RANDOM 2020-12-11 10:39:00 Nicole Sanchez [facility] SODIUM, URINE RANDOM 2020-12-11 10:39:00 Nicole Sanchez [facility] PHOSPHORUS 2020-12-11 08:50:00 Sandrita [facility] URIC ACID 2020-12-11 08:50:00 Nicole Sanchez [facility] MAGNESIUM 2020-12-11 08:50:00 Sandrita [facility] OSMOLALITY, SERUM OR 2020-12-11 08:50:00 Nicole Sanchez [facility] PLASMA [facility] BASIC METABOLIC PANEL 2020-12-11 08:50:00 Ad Remy [facility] (NA, K, CL, CO2, GLUCOSE, Medica l Branch BUN, CREATININE, CA) CBC WITH DIFF 2020-12-11 08:50:00 Janeth [facility] URINALYSIS 2020-12-10 [facility]:31[facility]-12-10 20:31[facility] 2020-12-10 17:58:00 Janeth Nasir [facility] BLOOD CULTURE SCREEN 2020-12-10 17:51:00 Janeth Nasir [facility] PHOSPHORUS 2020-12-10 17:50:00 [facility] BASIC METABOLIC PANEL 2020-12-10 17:50:00 Nicole Sanchez [facility] (NA, K, CL, CO2, GLUCOSE, Medica l Branch BUN, CREATININE, CA) CBC WITH DIFF 2020-12-10 17:49:00 Janeth [facility] XR CHEST 1 VW 2020-12-10 17:21:04 Janeth [facility] VANCOMYCIN TROUGH 2020-12-10 14:44:00 Sandrita [facility] PHOSPHORUS 2020-12-10 10:29:00 Sandrita [facility] MAGNESIUM 2020-12-10 10:29:00 Ovshakir [facility] BASIC METABOLIC PANEL 2020-12-10 10:29:00 [facility] (NA, K, CL, CO2, GLUCOSE, Medica l Branch BUN, CREATININE, CA) BASIC METABOLIC PANEL 2020-12-10 00:50:00 Nicole Sanchez [facility] (NA, K, CL, CO2, GLUCOSE, Medica l Branch BUN, CREATININE, CA) VANCOMYCIN TROUGH 2020-12-09 19:02:00 Sandrita [facility] PHOSPHORUS 2020-12-09 09:58:00 Sandrita [facility] MAGNESIUM 2020-12-09 09:58:00 Ovshakir [facility] BASIC METABOLIC PANEL 2020-12-09 09:58:00 [facility] (NA, K, CL, CO2, GLUCOSE, Medica l Branch BUN, CREATININE, CA) CT ABDOMEN PELVIS W 2020-12-08 17:35:25 Lesley Jay [facility] CONTRAST [facility] PHOSPHORUS 2020-12-08 09:38:00 Ovshakir [facility] MAGNESIUM 2020-12-08 09:38:00 [facility]OL[facility] PANEL 2020-12-08 09:38:00 Sandrita [facility] (NA, K, CL, CO2, GLUCOSE, Medica l Branch BUN, CREATININE, CA) VANCOMYCIN TROUGH 2020-12-08 06:35:00 [facility]TTE[facility] 2020-12-07 18:35:00 GriseldaliaNasir [facility] COMPLETE [facility] MAGNESIUM 2020-12-07 09:59:00 [facility] BASIC METABOLIC PANEL 2020-12-07 09:59:00 [facility] (NA, K, CL, CO2, GLUCOSE, Medica l Branch BUN, CREATININE, CA) CBC WITH DIFF 2020-12-07 09:59:00 [facility] BASIC METABOLIC PANEL 2020-12-07 02:15:00 [facility] (NA, K, CL, CO2, GLUCOSE, Medica l Branch BUN, CREATININE, CA) MAGNESIUM 2020-12-06 15:50:00 [facility] BASIC METABOLIC PANEL 2020-12-06 15:50:00 [facility] (NA, K, CL, CO2, GLUCOSE, Medica l Branch BUN, CREATININE, CA) CBC WITH DIFF 2020-12-06 15:50:00 [facility] MAGNESIUM 2020-12-05 22:29:00 [facility] BASIC METABOLIC PANEL 2020-12-05 22:29:00 Lisandra Eagle [facility] (NA, K, CL, CO2, GLUCOSE, Medica l Branch BUN, CREATININE, CA) CT HEAD WO CONTRAST 2020-12-05 20:11:36 Lisandra Eagle [facility] POCT GLUCOSE(AGE >30DAYS) 2020-12-05 19:44:00 [facility] TEST 2020-12-05 18:53:00 Lisandra Eagle [facility] URINE DRUG (IMMUNOASSAY) 2020-12-05 18:49:00 Lisandra Eagle [facility] SCREEN URINALYSIS 2020-12-05 18:49:00 Lisandra Eagle [facility] URINE CULTURE 2020-12-05 18:49:00 Lisandra Eagle [facility] EXTRA TUBE LT. BLUE 2020-12-05 18:49:00 Lisandra Eagle [facility] XR CHEST 1 VW 2020-12-05 18:44:56 Lisandra Eagle [facility] COVID-19 (ID NOW RAPID 2020-12-05 18:39:00 Lisandra Eagle [facility] TESTING) [facility] ONLY COVID 2020-12-05 18:39:[address] [facility] INTERPRETATION [facility] BLOOD CULTURE SCREEN 2020-12-05 18:35:00 [facility] 2020-12-05 18:35:00 Lisandra Eagle [facility] MAGNESIUM 2020-12-05 18:35:00 Lisandra Eagle [facility] TROPONIN I 2020-12-05 18:35:00 Lisandra Eagle [facility] THYROID STIMULATING 2020-12-05 18:35:00 Lisandra Eagle [facility] HORMONE [facility] COMP. METABOLIC PANEL 2020-12-05 18:35:00 Lisandra Eagle [facility] ([id number]) [facility] CBC WITH DIFF 2020-12-05 18:35:00 Lisandra Eagle [facility] LACTIC ACID WHOLE BLOOD 2020-12-05 18:34:00 Lisandra Eagle [facility] AC PANEL 20 + LACTIC ACID 2020-12-05 18:34:00 Lisandra [facility] HB ECG ROUTINE & RHYTHM 2020-12-05 18:24:21 Lisandra Eagle [facility] PHYSICIAN ORDERS 2020-09-09 05:01:00 Doctor Unassigned, [facility] [place] [facility] CBC WITH DIFF 2020-08-09 17:14:00 Luisa, [facility] URINALYSIS 2020-08-09 17:14:00 Luisa [facility] RHEUMATOID FACTOR 2020-08-09 17:14:00 [facility] C-REACTIVE PROTEIN 2020-08-09 17:14:00 Leigh Moran [facility] COMP. METABOLIC PANEL 2020-08-09 17:14:00 Leigh Moran [facility] ([id number]) [facility] SEDIMENTATION RATE 2020-08-09 17:14:00 [facility]TI-SSB([place]) 2020-08-09 17:14:00 Luisa [facility] ADC OR LEXX ONLY - RPR 2020-08-09 17:14:00 Leigh Moran [facility] HIV 1/2 AG-AB WITH REFLEX 2020-08-09 17:14:00 Leigh Moran [facility] ASSIGNMENT OF BENEFITS 2020-08-09 16:41:17 Doctor Unassigned, Un [facility] [place] [facility] BODY FLUID DIRECT COUNT 2020-07-14 20:10:00 Hansel Kennedy [facility] CSF CULTURE 2020-07-14 20:10:00 Hansel Kennedy [facility] CEREBROSPINAL FLUID 2020-07-14 20:09:00 Hansel Kennedy [facility] PROTEIN [facility] CEREBROSPINAL FLUID 2020-07-14 20:09:00 Hansel Kennedy [facility] GLUCOSE [facility] EXTRA TUBE CSF 2020-07-14 20:09:00 Hansel Kennedy [facility] MENINGITIS/ENCEPHALITIS 2020-07-14 20:09:[address] [facility] PANEL BY PCR [facility] POCT GLUCOSE (AUTOMATED) 2020-07-14 14:55:00 Christina Roque [facility] MAGNESIUM 2020-07-14 13:11:00 Hansel Kennedy [facility] PHOSPHORUS 2020-07-14 13:10:00 Tito brayden Tariq o [facility] XR CHEST 1 VW 2020-07-14 13:06:38 Hansel Kennedy [facility] URINALYSIS 2020-07-14 09:32:00 Bhaskar Reyna [facility] COVID-19 (ID NOW RAPID 2020-07-14 09:25:00 Bhaskar Reyna [facility] TESTING) Medical Branch C-REACTIVE PROTEIN 2020-07-14 01:10:00 Bhaskar Reyna [facility] HEPATIC FUNCTION PANEL 2020-07-14 01:10:00 Axel Bhaskar B [facility] ([id number]) (ALB,T.PRO,BILI Medical Branch T,BU/BC,ALT,AST,ALK PHOS) BASIC METABOLIC PANEL 2020-07-14 01:10:00 Bhaskar Reyna [facility] (NA, K, CL, CO2, GLUCOSE, Medica l Branch BUN, CREATININE, CA) SEDIMENTATION RATE 2020-07-14 01:10:00 Bhaskar Reyna [facility] CBC WITH DIFF 2020-07-14 01:10:00 Bhaskar Reyna [facility] AUTHORIZATION FOR RELEASE 2020-07-08 05:01:00 Doctor [place], [facility] [place] [facility] REFERRAL- 2020-07-07 05:01:00 Doctor [place], [facility] REQUEST/RESPONSE [place] [facility] CBC WITH DIFF 2020-07-07 03:16:00 Lisandra Eagle [facility] NOTICE OF PRIVACY 2020-07-06 23:35:30 Doctor [place], [facility] PRACTICES [place] [facility] CONSENT/REFUSAL FOR 2020-07-06 23:35:07 Doctor Ho [facility] DIAGNOSIS AND TREATMENT [place] [facility] CT HEAD WO CONTRAST 2020-07-04 19:42:39 Lety Noriega [facility] LIPASE 2020-07-04 18:56:00 Lety Noriega [facility] COMP. METABOLIC PANEL 2020-07-04 18:56:00 Lety Noriega [facility] ([id number]) [place] CBC WITH DIFF 2020-07-04 18:56:00 Lety Noriega [facility] URINALYSIS 2020-07-04 18:56:00 Hari [facility] CONSENT/REFUSAL FOR 2020-07-04 17:04:54 Doctor Unassigned, [facility] DIAGNOSIS AND TREATMENT [place] [facility] TROPONIN I 2020-06-27 16:14:00 Michael [facility] MR BRAIN WO CONTRAST 2020-06-27 10:20:11 Jose Cintron [facility] COVID-19 (ID NOW RAPID 2020-06-26 22:32:00 Tung [facility] TESTING) [facility] CT ANGIOGRAM HEAD 2020-06-26 22:14:19 [facility] CT ANGIOGRAM NECK 2020-06-26 22:14:19 [facility] CT HEAD WO CONTRAST 2020-06-26 22:02:20 [facility] 2020-06-26 21:28:00 Tung [facility] XR CHEST 1 VW 2020-06-26 20:27:04 Tung [facility] TROPONIN I 2020-06-26 20:24:00 Tung [facility] HEPATIC FUNCTION PANEL 2020-06-26 20:24:00 Ruby, [facility] ([id number]) (ALB,T.PRO,BILI Medical Branch T,BU/BC,ALT,AST,ALK PHOS) BASIC METABOLIC PANEL 2020-06-26 20:24:00 Ruby, Sabrina [facility] (NA, K, CL, CO2, GLUCOSE, Medica l Branch BUN, CREATININE, CA) SEDIMENTATION RATE 2020-06-26 20:24:00 Sabrina Ruby [facility] CBC WITH DIFF 2020-06-26 20:24:00 [facility] & RHYTHM 2020-06-26 20:16:57 Sabrina Ruby [facility] CONSENT/REFUSAL FOR 2020-06-26 20:02:52 Doctor Unassigned, [facility] DIAGNOSIS AND TREATMENT [place] [facility] COMP. METABOLIC PANEL 2020-06-01 09:54:00 Zenaida Rodrigez [facility] ([id number]) [facility] Branch BASIC METABOLIC PANEL 2020-05-31 14:36:00 Cade Hernadez [facility] (NA, K, CL, CO2, GLUCOSE, Medica l Branch BUN, CREATININE, CA) CBC WITH DIFF 2020-05-31 12:26:[facility] PEL[facility] W WO 2020-05-30 20:49:43 Dash Guerrero [facility] BLOOD CULTURE SCREEN 2020-05-30 20:16:00 Dash Guerrero [facility] LACTIC ACID WHOLE BLOOD 2020-05-30 20:15:00 Dash Guerrero [facility] URINALYSIS 2020-05-30 20:14:00 Dash Guerrero [facility] HEPATIC FUNCTION PANEL 2020-05-30 20:13:00 Dash Guerrero [facility] ([id number]) (ALB,T.PRO,BILI [facility] T,BU/BC,ALT,AST,ALK PHOS) BASIC METABOLIC PANEL 2020-05-30 20:13:00 Dash Guerrero [facility] (NA, K, CL, CO2, GLUCOSE, Medica l Branch BUN, CREATININE, CA) CBC WITH DIFF 2020-05-30 20:13:00 Dash Guerrero [facility] PROTHROMBIN TIME / INR 2020-05-30 20:13:00 Dash Guerrero [facility] ACTIVATED PARTIAL 2020-05-30 20:13:[address] [facility] (ID NOW RAPID 2020-05-30 20:13:00 Dash Guerrero [facility] TESTING) Medical Branch LAB ONLY COVID 2020-05-30 20:13:00 Dash Guerrero [place] INTERPRETATION [facility] BLOOD CULTURE SCREEN 2020-05-30 20:09:00 Dash Guerrero [facility] CONSENT/REFUSAL FOR 2020-05-30 19:22:16 Doctor Unassigned, [facility] DIAGNOSIS AND TREATMENT [place] [facility] URINALYSIS 2020-05-27 00:16:00 Umm Mares [facility] HEPATIC FUNCTION PANEL 2020-05-26 23:25:00 Umm Mares [facility] ([id number]) (ALB,T.PRO,BILI Medical Branch T,BU/BC,ALT,AST,ALK PHOS) BASIC METABOLIC PANEL 2020-05-26 23:25:00 Umm Mares [facility] (NA, K, CL, CO2, GLUCOSE, Medica l Branch BUN, CREATININE, CA) CBC WITH DIFF 2020-05-26 23:25:00 Umm Mares [facility] CONSENT/REFUSAL FOR 2020-05-26 22:59:39 Doctor Unassdudley, [facility] DIAGNOSIS AND TREATMENT [place] [facility] URINALYSIS 2020-05-13 18:34:00 Dottie Troncoso [facility] CT ABDOMEN PELVIS W 2020-05-13 17:26:18 Dottie Troncoso [facility] CONTRAST [facility] Branch LIPASE 2020-05-13 16:47:00 Dottie Troncoso [facility] HEPATIC FUNCTION PANEL 2020-05-13 16:47:00 Dottie Troncoso [facility] ([id number]) (ALB,T.PRO,BILI Medical Branch T,BU/BC,ALT,AST,ALK PHOS) BASIC METABOLIC PANEL 2020-05-13 16:47:00 Dottie Troncoso [facility] (NA, K, CL, CO2, GLUCOSE, Medica l Branch BUN, CREATININE, CA) CBC WITH DIFF 2020-05-13 16:47:00 Dottie Troncoso [facility] NOTICE OF PRIVACY 2020-05-13 16:27:55 Doctor Unassigned, [facility] [place] [facility] CONSENT/REFUSAL FOR 2020-05-13 16:23:10 Doctor [place], [facility] DIAGNOSIS AND TREATMENT [place] [facility] [place] EXTERNAL PROVIDER RECORDS 2019-12-10 05:01:00 Doctor [place], [facility] [place] [facility] US ABDOMEN LIMITED 2019-12-08 18:04:34 Lesley Bee [facility] XR CHEST 1 VW 2019-12-08 17:33:32 Lesley Bee [facility] CT ABDOMEN PELVIS WO 2019-12-08 16:24:35 Lesley Bee [facility] CONTRAST [facility] COMP. METABOLIC PANEL 2019-12-08 16:15:00 Lesley Bee [facility] ([id number]) [facility] [place] CBC WITH DIFF 2019-12-08 16:15:00 Lesley Bee [facility] URINALYSIS 2019-12-08 16:13:00 Lesley Bee [facility] POCT TEST 2019-12-08 16:12:00 Lesley Bee [facility] NOTICE OF PRIVACY 2019-12-08 15:46:34 Doctor [place], [facility] [place] [facility] CONSENT/REFUSAL FOR 2019-12-08 15:46:19 Doctor [place], [facility] DIAGNOSIS AND TREATMENT [place] [facility] POCT URINALYSIS AUTO 2019-12-08 15:09:00 Abhijit Galvin [facility] PHYSICIAN CERTIFICATION 2019-09-29 05:01:00 Doctor [place] U [facility] STATEMENT [place] [facility] AGREEMENTS AUTHORIZATIONS 2019-03-28 06:01:00 Doctor [place], [facility] AND IRREVOCABLE [place] [facility] ASSIGNMENTS (FORM 2000) Encounters Start End Encounter Admission Attending Care Care Encounter Source Date/Time Date/Time Type Type Clinicians Facility Department ID 2021-03-09 Out[facility] [id number] 13:01:[address] [facility] [address] [facility] 2021-03-09 Outpatient Hernandez, STLMLC STLMLC [id number] 13:01:30 [facility] [address] Beth - Osvaldo l Outpati ent Clinics 2020-12-12 Emergency [facility] [id number] Univers 22:28:34 ity of [facility] 2020-12-12 Emergency [facility] [id number] Univers 21:17:57 ity of [facility] 2020-12-12 Emergency [facility] [id number] Univers 20:44:10 ity of [facility] 2020-12-12 Emergency [facility] [id number] Univers 19:18:03 ity of [facility] 2020-12-12 Emergency [facility] [id number] Univers 13:38:38 ity of [facility] 2020-12-12 Emergency [facility] [id number] Univers 12:59:09 ity of [facility] 2020-12-12 Emergency [facility] [id number] Univers 10:04:40 ity of [facility] 2020-12-11 Emergency [facility] [id number] Univers 01:01:21 ity of [facility] 2021-03-08 2021-03-08 [facility] 1.2.840.114 [id number] Univers 00:00:00 00:00:00 Johnson VELASCO [id number] [id number] [phone] Me dical NAL 092 Branch [facility] 2020-12-23 2020-12-23 Outpatient R [facility] [id number] Univers 00:00:00 00:00:00 ity of [facility] 2020-12-14 2020-12-14 Transition FILEMON Redman 1.2.840.114 [id number] Univers 00:00:00 00:00:00 of Care Josselin LEWIS [id number] i ty of [place] [phone] [place] [address] Branch 2020-12-05 2020-12-12 Inpatient X [facility] [id number] Univers 13:25:00 15:45:00 AD ity of [facility] 2020-12-05 2020-12-12 [facility] Lisandra Eagle [facility] 1.2.840. 114 [id number] Univers 13:25:00 15:45:00 Encounter Sandrita Ad KRISTA [id number] it[place] of [place] [phone] [place] [address] Branch 2020-11-01 2020-11-01 Refsherron Lavon [facility] 1.2.840.114 [id number] Univers 00:00:00 00:00:00 [facility] [id number] i ty of [place] 4.2.7.2.686 T emmysudha Camilo [place] [phone] [place] 713392 Branch Office Building 2020-10-12 2020-10-12 Refsherron Fisher [facility] 1.2.840.114 [id number] Univers 00:00:00 00:00:00 Johnson Velasco [id number] it[place] of [place] Profess[place] [phone] Nc dical nal 092 Branch Building 2020-10-07 2020-10-07 Finish Mender Ny [place]utton Lab Main [facility] 1.2.8 40.114 [id number] Univers 10:29:15 10:44:15 Visit Anish Carrera [id number] ity of [place] [phone] Nc dical nal 353 Branch Building 2020-10-07 2020-10-07 Outpatient R [facility] [id number] Univers 10:30:00 10:30:00 [id number] ity of [facility] 2020-10-07 2020-10-07 Outpatient R DEBI [facility] [id number] Univers 10:30:00 10:30:00 ANISH mccall of [facility] 2020-09-15 2020-09-15 Outpatient R [facility] [id number] Univers 10:00:00 10:00:00 [id number] ity of [facility] 2020-09-10 2020-09-10 Refill Lavon [facility] 1.2.840.114 [id number] Univers 00:00:00 00:00:00 Michael Eaton 350.1.13.10 i ty of [place] 4.2.7.2.686 T roxy Baez [phone] [address] Office Building 2020-09-09 2020-09-09 Orders Doctor CIPRIANO 1.2.840.114 [id number] Univers 00:00:00 00:00:00 Only Unassigned, KATIE [id number] ity of [place] [facility] 4.2.7.2.686 Bald[place] as [phone] [address] 2020-09-06 2020-09-06 Telephone CIPRIANO Machado 1.2.984.320 [id number] Univers 00:00:00 00:00:00 Emperatrizbharath WILSON 350.1.13.10 i ty of [facility] 4.2.7.2.686 [place] as [phone] [address] 2020-08-13 2020-08-13 Refill Lavon [facility] 1.2.840.114 [id number] Univers 00:00:00 00:00:00 Michael Eaton 350.1.13.10 i ty of [place] 4.2.7.2.686 T roxy Baez [phone] [address] Office Building 2020-08-09 2020-08-09 Outpatient R [facility] [id number] Univers 12:00:00 12:00:00 [id number] ity [facility] 2020-08-09 2020-08-09 Outpatient R DEBI [facility] [id number] Univers 12:00:00 12:00:00 ANISH mccall [facility] 2020-08-09 2020-08-09 Finish Mender Anni, Ny Lab Main [facility] 1.2.8 40.114 [id number] Univers 11:42:15 11:57:15 Visit Anish Carrera 350.1.13.10 it[place] of [place] [phone] Nc dical nal 353 Branch Building 2020-08-09 2020-08-09 Orders Doctor CIPRIANO 1.2.840.114 [id number] Univers 00:00:00 00:00:00 Only Unassigned, KATIE 350.1.13.10 ity of [place] [facility] 4.2.7.2.686 [place] as [phone] [facility] 009 Branch 2020-07-13 2020-07-14 Emergency Aufderheide, Shi Melvin TRAUMA 1.2.840.114 [id number] Univers 15:14:00 19:27:00 Christina Roque MAGEE 350.1.13.10 [place] [phone] [facility] 014 Branch 2020-07-13 2020-07-13 Office Castillo [facility] 1.2.840.114 [id number] Univers 09:44:58 11:19:02 Visit Johnson Velasco 350.1.13.10 it[place] of [place] [phone] Nc dical nal 092 Branch [facility] 2020-07-13 2020-07-13 Outpatient JOHNSON FISHER [facility] [id number] Univers 09:40:00 09:40:00 JOHNSON FISHER [id number] [facility] 2020-07-13 2020-07-13 Outpatient JOHNSON OSPINA [facility] [id number] Univers 09:40:00 09:40:[address] [facility] 2020-07-13 2020-07-13 Letter CIPRIANO Hernandez 1.2.840.114 [id number] Univers 00:00:00 00:00:00 (Out) Fercho WILSON 350.1.13.10 ity of [facility] 4.2.7.2.686 [place] [phone] [facility] 043 Branch 2020-07-08 2020-07-08 Orders Doctor COTA 1.2.840.114 [id number] Univers 00:00:00 00:00:00 Only Unassigned, KATIE 350.1.13.10 ity of [place] 4.2.7.2.686 [place] [phone] [facility] 009 Wells 2020-07-07 2020-07-07 Orders Doctor CIPRIANO 1.2.840.114 [id number] Univers 00:00:00 00:00:00 Only Unassigned, KATIE 350.1.13.10 ity of [place] 4.2.7.2.686 [place] [phone] [facility] 009 Wells 2020-07-07 2020-07-07 Telephone [facility] 1.2.690.794 [id number] Univers 00:00:00 00:00:00 Angy PRIMARY 350.1.13.10 it y of [facility] [place] [phone] [facility] 086 Wells 2020-07-06 2020-07-06 Emergency [facility] 1.2.216.053 [id number] Univers 18:48:00 23:59:00 Lisandra Velasco 350.1.13.10 it[place] of [place] [phone] [facility] 084 Wells 2020-07-04 2020-07-04 [facility] 1.2.840.114 [id number] Univers 12:16:00 18:32:00 Lety Velasco 350.1.13.10 ity of [place] [phone] [facility] 084 Wells 2020-06-26 2020-06-28 Emergency RubySabrina garcia 1.2.840 .114 [id number] Univers 15:08:00 18:15:00 Caio Hernandez 350.1.13.10 ity of [facility] 4.2.7.2.686 [place] [phone] [facility] 098 Wells 2020-06-28 2020-06-28 Telephone [facility] 1.2.840.114 [id number] Univers 00:00:00 00:00:00 Johnson Velasco 350.1.13.10 it[place] of [place] [facility] [phone] Nc dical [facility] 2020-06-22 2020-06-22 Outpatient STLMLC [facility] [id number] [facility] 00:00:00 00:00:00 [facility] 2020-05-30 2020-06-02 Emergency Dash Guerrero [facility] 1.2.840. 114 [id number] Univers 14:32:00 11:50:00 Ad Remy 350.1.13.10 ity of Cade Hernadez 4.2.7.2.686 [facility] [phone] [address] 2020-05-31 2020-05-31 Outpatient [facility] [id number] Univers 09:45:00 09:45:00 [facility] [id number] ity [facility] 2020-05-31 2020-05-31 [facility] [id number] [facility] 09:45:00 09:45:00 [facility] ity of [facility] 2020-05-26 2020-05-26 Emergency [facility] 1.2.046.420 [id number] Univers 18:10:00 21:41:00 Umm Velasco 350.1.13.10 ity of [place] 4.2.7.2.686 [facility] [place] [phone] [facility] 084 Wells 2020-05-26 2020-05-26 Orders Doctor CIPRIANO 1.2.840.114 [id number] Univers 00:00:00 00:00:00 Only Unassigned, KATIE 350.1.13.10 ity of [place] [facility] 4.2.7.2.686 [place] [phone] [facility] 009 Branch 2020-05-13 2020-05-13 Emergency [facility] 1.2.840.114 [id number] Univers 11:30:00 17:34:00 Dottie Velasco 350.1.13.10 ity of [place] [phone] [facility] 084 Branch 2020-05-13 2020-05-13 Urgent Provider, [facility] 1.2.840.114 [id number] Univers 10:10:06 11:10:27 Care Sarah Orantes [facility] 350.1.13.10 ity of [place] 4.2.7.2.686 [place] Professio [phone] [facility] 044 Wells Office Building One 2020-05-13 2020-05-13 Outpatient R [facility] [id number] Univers 11:00:00 11:00:00 [id number] ity [facility] 2020-05-13 2020-05-13 [facility] [id number] Univers 11:00:00 11:00:00 SARAH ity [facility] 2020-05-13 2020-05-13 Orders Doctor COTA 1.2.840.114 [id number] Univers 00:00:00 00:00:00 Only Unassigned, KATIE 350.1.13.[address] [facility] 4.2.7.2.686 [place] [phone] [facility] 009 Wells 2020-04-19 2020-04-19 [facility] Castillo, [facility] 1.2.840.114 [id number] Univers 00:00:00 00:00:00 Johnson Velasco 350.1.13.10 ity of [place] [phone] Nc dical nal 092 [facility] 2020-04-09 2020-04-09 Refill Castillo, [facility] 1.2.840.114 [id number] Univers 00:00:00 00:00:00 Johnson Velasco 350.1.13.10 it[place] of [place] [phone] Nc dical nal 092 [facility] 2020-03-23 2020-03-23 Office [facility] 1.2.840.114 [id number] Univers 09:29:15 10:11:33 Visit Johnson Velasco 350.1.13.10 ity of [place] [phone] Nc dical nal 092 [facility] 2020-03-23 2020-03-23 Outpatient JOHNSON OSPINA [facility] [id number] Univers 09:20:00 09:20:00 JOHNSON FISHER [id number] ity [facility] 2020-03-23 2020-03-23 Outpatient Krystal FISHER JOHNSON [facility] [id number] Univers 09:20:00 09:20:00 JOHNSON FISHER ity [facility] 2020-03-15 2020-03-15 Refill [facility] 1.2.840.114 [id number] Univers 00:00:00 00:00:00 Johnson Velasco 350.1.13.10 it[place] of [place] [phone] [facility] 092 [facility] 2019-12-10 2019-12-10 Orders Doctor CIPRIANO 1.2.840.114 [id number] Univers 00:00:00 00:00:00 Only Unassigned, KATIE 350.1.13.10 ity of [place] [facility] 4.2.7.2.686 [place] [phone] [facility] 009 Wells 2019-12-09 2019-12-[address] [facility], [facility] 1.2.840.114 [id number] Univers 00:00:00 00:00:00 Management Kari Velasco 350.1.13.10 ity of [place] [phone] [facility] 204 [facility] 2019-12-08 2019-12-08 Emergency Bee, [facility] 1.2.264.518 [id number] Univers 11:01:00 14:17:00 Lesley Velasco 350.1.13.10 i ty of [place] [phone] [facility] 084 Wells 2019-12-08 2019-12-08 Office Juan M [facility] 1.2.840.114 [id number] Univers 09:53:04 10:44:29 Visit [facility] Krista 350.1.13.10 i ty of [place] [phone] [facility] 204 [facility] 2019-12-08 2019-12-08 Outpatient R [facility] [id number] Univers 10:15:00 10:15:00 [facility] [id number] ity [facility] 2019-12-08 2019-12-08 Outpatient R [facility] [id number] Univers 10:15:00 10:15:00 [facility] ity [facility] 2019-12-08 2019-12-08 Orders Doctor CIPRIANO 1.2.840.114 [id number] Univers 00:00:00 00:00:00 Only Unassigned, KATIE 350.1.13.10 ity of [place] [facility] 4.2.7.2.686 [place] [phone] [address] 2019-12-06 2019-12-06 [facility] 1.2.840.114 [id number] Univers 00:00:00 00:00:00 Johnson Velasco 350.1.13.10 ity of [place] [phone] [facility] 092 [facility] 2019-10-17 2019-10-17 [facility] 1.2.840.114 [id number] Univers 00:00:00 00:00:00 Johnson Velasco 350.1.13.10 ity of [place] [phone] [facility] 092 [facility] 2019-09-29 2019-09-29 Orders Doctor CIPRIANO 1.2.840.114 [id number] Univers 00:00:00 00:00:00 Only Unassigned, KATIE 350.1.13.10 ity of [place] [facility] 4.2.7.2.686 [place] [phone] [address] 2019-09-23 2019-09-23 [facility] 1.2.840.114 [id number] Univers 00:00:00 00:00:00 Johnson Velasco 350.1.13.10 it[place] of [place] [phone] Nc dicmt nal [address] [place] [address] 2019-08-07 2019-08-07 [facility] 1.2.840.114 [id number] Univers 00:00:00 00:00:00 Johnson Velasco 350.1.13.10 it[place] of [place] [phone] [address] 2019-05-21 2019-05-21 [facility] 1.2.840.114 [id number] Univers 00:00:00 00:00:00 Johnson Velasco 350.1.13.10 ity of [place] [phone] [address] 2019-04-24 2019-04-24 [facility] 1.2.840.114 [id number] Univers 00:00:00 00:00:00 Johnson Velasco 350.1.13.10 ity of [place] [phone] [address] 2019-04-17 2019-04-17 [facility] 1.2.840.114 [id number] Univers 00:00:00 00:00:00 Johnson Velasco 350.1.13.10 [place] [phone] [facility] nal [address] [place] [address] 2019-04-07 2019-04-07 [facility] 1.2.840.114 [id number] Univers 00:00:00 00:00:00 Johnson Velasco 350.1.13.10 [place] [phone] [address] 2019-03-28 2019-03-28 Finish Mender 2, [facility] 1.2.840.114 [id number] Univers 11:02:20 11:17:20 Visit Johnson Fisher 350.1.13 .10 [place] [phone] [place] [facility] 2019-03-28 2019-03-28 Office Castillo [facility] 1.2.840.114 [id number] Univers 09:56:36 10:59:16 Visit Johnson Velasco 350.1.13.10 [place] [phone] [place] 092 [facility] 2019-03-28 2019-03-28 Orders Doctor CIPRIANO [id number] [facility] 00:00:00 00:00:00 Only Unassigned, KATIE [id number] ity of [place] [facility] [id number] Baldemar as [id number] [address] 2018-11-05 2018-11-05 Emergency E [facility] [address] [facility] 11:03:00 11:03:00 l [facility] 2017-08-24 2017-08-24 Outpatient Trish Phillips 14 [id number] [facility] 08:45:00 08:45:00 [facility] 2017-08-01 2017-08-01 Outpatient Trish Phillips 14 [id number] [facility] 10:15:00 10:15:00 [facility] Results Test Description Test Time Test Comments Results Result Comments Source BASIC METABOLIC PANEL (NA, K, CL, CO2, GLUCOSE, BUN, 2020-11 11:05:50 CREATININE, [place]) Test Item Value Reference Range Interpretation Comme nts NA (test code = 5560381154) 133 mmol/L 135-145 L K (test code = 7461628927) 5.0 mmol/L 3.5-5.0 CL (test code = 7684479578) 105 mmol/L 98-108 CO2 TOTAL (test code = 3020097590) 24 mmol/L 23-31 AGAP (test code = 4833884756) 2-16 BUN (test code = 9493905419) 9 mg/dL 7-23 GLUCOSE (test code = 3329929086) 93 mg/dL 70-110 CREATININE (test code = 0.57 mg/dL 0.50-1.04 4232881588) CALCIUM (test code = 0630706503) 9.8 mg/dL 8.6-10.6 eGFR (test code = 5168006144) mL/min/1.73m2 ANTHONY (test code = ANTHONY) Association [...] tests). Lab Interpretation (test code = Abnormal 11015-3) [facility] Test Item Value Reference Range Interpretation Comments MAGNESIUM (test code = 9842237933) 2.3 mg/dL 1.7-2.4 Lab Interpretation (test code = Normal 18503-1) [facility] 11:05:30 Test Item Value Reference Range Interpretation Comments PHOSPHORUS (test code = 6485625384) 4.1 mg/dL 2.5-5.0 Lab Interpretation (test code = Normal 11473-1) [facility], SERUM OR [id number] 17:26:02 Test Item Value Reference Range Interpretation Comments OSMOLALITY (test code = See_Comment [Au tomated message] 6825161037) The system [employer] generated this result transmitted ref erence range: 278 - 30 5 mOsm/kg. The re ference range was not u sed to interpret this result as normal/abnor mal. Lab Interpretation (test Normal code = 95581-8) [facility] Random [id number] 15:46:31 Test Item Value Reference Range Interpretation Comments VANCO RANDOM (test code = 8.9 ug/mL 3150786360) [facility] (NA, K, CL, CO2, GLUCOSE, BUN, CREATININE, CA)2020-12-11 10:02:40 Test Item Value Reference Range Interpretation Comments NA (test code = 135 mmol/L 135-145 4035585215) K (test code = 4.7 mmol/L 3.5-5.0 5984211542) CL (test code = 107 mmol/L 98-108 5723039857) CO2 TOTAL (test code 24 mmol/L 23-31 = 0158275820) AGAP (test code = 2-16 7788852980) BUN (test code = 9 mg/dL 7-23 1400174992) GLUCOSE (test code = 98 mg/dL 70-110 6701471648) CREATININE (test code 0.62 mg/dL 0.50-1.04 = 1974080175) CALCIUM (test code = 9.5 mg/dL 8.6-10.6 7688058216) eGFR (test code = mL/min/1.73m2 6416857033) ANTHONY (test code = ANTHONY) Association of [...] or urine or abnormalities in imaging tests). [facility] WITH [id number] 09:45:31 Test Item Value Reference Range Interpretation Comments WBC (test code = See_Comment [Automated 8990-2) message] The sy stem which generated this result transmitted reference range : 4.30 - 11.10 10*3/?L. The reference range was not used to interpret this result as normal/abnormal . RBC (test code = See_Comment L [Automated 579-8) message] The sy stem which generated this [...] (test code = 55.5 fL 39.0-49.9 H 40253-8) RDW-CV (test code = 15.6 % 12.0-15.5 H 788-0) PLT (test code = See_Comment [Automated 777-3) message] The sy stem which generated this result transmitted reference range : 166 - 358 10*3/ ?L. The reference r miky was not used to interpret this result as normal/abnormal . MPV (test code = 11.5 fL 9.5-12.9 76446-8) NRBC/100 WBC (test See_Comment [Automat ed code = 3212286287) message] The system which generated this result transmitted reference range : 0.0 - 10.0 /100 WBCs. The refer ence range was not u sed to interpret th is result as normal/abnormal . NRBC x10^3 (test code See_Comment [Auto mated = 2440816616) message] The s ystem which generated this result transmitted reference range : 10*3/?L. The reference range was not used to interpret this result as normal/abnormal . GRAN MAT (NEUT) % 44.2 % (test code = 770-8) IMM GRAN % (test code 5.40 % = 5895021616) LYMPH % (test code = 35.6 % 736-9) MONO % (test code = 14.1 % 5905-5) EOS % (test code = 0.3 % 713-8) BASO % (test code = 0.4 % 706-2) GRAN MAT x10^3(ANC) 2.99 10*3/uL 1.88-7.09 (test code = 0398723048) IMM GRAN x10^3 (test 0.37 10*3/uL 0.00-0.06 H code = 9363090387) LYMPH x10^3 (test code 2.42 10*3/uL 1.32-3.29 = 731-0) MONO x10^3 (test code 0.96 10*3/uL 0.33-0.92 H = 742-7) EOS x10^3 (test code = <0.03 0.03-0.39 L 711-2) BASO x10^3 (test code 0.03 10*3/uL 0.01-0.07 = 704-7) Lab Interpretation Abnormal (test code = 01937-4) [facility]21-[facility]-30 09:37:24 Test Item Value Reference Range Interpretation Comments MAGNESIUM (test code = 3823836116) 2.3 mg/dL 1.7-2.4 Lab Interpretation (test code = Normal 05888-9) [facility]2021-[facility]-30 09:37:04 Test Item Value Reference Range Interpretation Comments PHOSPHORUS (test code = 3178230176) 2.8 mg/dL 2.5-5.0 Lab Interpretation (test code = Normal 03405-0) [facility] [id number] 09:36:44 Test Item Value Reference Range Interpretation Comments URIC ACID (test code = 9192904353) 3.2 mg/dL 2.9-6.0 Lab Interpretation (test code = Normal 14205-2) [facility] Met[facility] (NA, K, CL, CO2, GLUCOSE, BUN, CREATININE, CA)2020-12-10 20:08:36 Test Item Value Reference Range Interpretation Comments NA (test code = 126 mmol/L 135-145 L 1136019819) K (test code = 3.7 mmol/L 3.5-5.0 9826326800) CL (test code = 102 mmol/L 98-108 6055199909) CO2 TOTAL (test code = 21 mmol/L 23-31 L 5509643934) AGAP (test code = 2-16 5986575498) BUN (test code = 9 mg/dL 7-23 5000587642) GLUCOSE (test code = 116 mg/dL 70-110 H 8475235484) CREATININE (test code = 0.72 mg/dL 0.50-1.04 2598779571) CALCIUM (test code = 8.9 mg/dL 8.6-10.6 3759507206) eGFR (test code = mL/min/1.73m2 3051138464) ANTHONY (test code = ANTHONY) Association of [...] tests). Lab Interpretation Abnormal (test code = 66837-6) [facility] [id number] 20:01:33 Test Item Value Reference Range Interpretation Comments Blood Culture-Aerobic No organisms No growth Previo us (test code = 34331-8) isolated prelim inary verified result was Culture [...] Culture-Anaerobic isolated preliminar y (test code = 64296-6) verifi ed result was Culture In Progress [...] CDT Lab Interpretation Normal (test code = 19367-8) [facility] [id number] 20:01:33 Test Item Value Reference Range Interpretation Comments Blood Culture-Aerobic No organisms No growth Previo us (test code = 96963-3) isolated prelim inary verified result was Culture [...] Culture-Anaerobic isolated preliminar y (test code = 33647-7) verifi ed result was Culture In Progress [...] CDT Lab Interpretation Normal (test code = 21309-3) [facility]2021-10-29 19:00:05 Test Item Value Reference Range Interpretation Comments PHOSPHORUS (test code = 9352420612) 2.5 mg/dL 2.5-5.0 Lab Interpretation (test code = Normal 32304-7) [facility] WITH [id number] 18:49:57 Test Item Value Reference Range Interpretation [...] (test code = 52.4 fL 39.0-49.9 H 82150-1) RDW-CV (test code = 15.2 % 12.0-15.5 788-0) PLT (test code = See_Comment L [Automated 777-3) message] The sy stem which generated this result transmitted reference range : 166 - 358 10*3/ ?L. The reference r miky was not used to interpret this result as normal/abnormal . MPV (test code = 10.8 fL 9.5-12.9 06158-5) NRBC/100 WBC (test See_Comment [Automat ed code = 8303210455) message] The system which generated this result transmitted reference range : 0.0 - 10.0 /100 WBCs. The refer ence range was not u sed to interpret th is result as normal/abnormal . NRBC x10^3 (test code See_Comment [Auto mated = 3926679208) message] The s ystem which generated this result transmitted reference range : 10*3/?L. The reference range was not used to interpret this result as normal/abnormal . GRAN MAT (NEUT) % 47.2 % (test code = 770-8) IMM GRAN % (test code 5.80 % = 3853621655) LYMPH % (test code = 29.2 % 736-9) MONO % (test code = 17.1 % 5905-5) EOS % (test code = 0.4 % 713-8) BASO % (test code = 0.3 % 706-2) GRAN MAT x10^3(ANC) 3.14 10*3/uL 1.88-7.09 (test code = 9308216024) IMM GRAN x10^3 (test 0.39 10*3/uL 0.00-0.06 H code = 6305982242) LYMPH x10^3 (test code 1.95 10*3/uL 1.32-3.29 = 731-0) MONO x10^3 (test code 1.14 10*3/uL 0.33-0.92 H = 742-7) EOS x10^3 (test code = 0.03 10*3/uL 0.03-0.39 711-2) BASO x10^3 (test code <0.03 0.01-0.07 = 704-7) POLYCHROMASIA (test 2+ See_Comment [Automa karly code = 63791-1) message] The system which generated this result transmitted reference range : 2+. The referen ce range was not u sed to interpret th is result as normal/abnormal . BANDS (test code = Increased A 1859676615) Lab Interpretation Abnormal (test code = 82300-4) [facility] - Draw random trough at [id number] 16:37:29 Test Item Value Reference Range Interpretation Comments VANCO TROUGH (test code 19.4 ug/mL 10.0-20.0 = 0947818570) ANTHONY (test code = ANTHONY) Toxic Range: ?>20 ug/mL 15-20 ug/mL is recommended for severe infection or when Vancomycin RAHEEM is greater than or equal to 2. Lab Interpretation (test Normal code = 58305-0) [facility]2021-10-29 11:49:21 Test Item Value Reference Range Interpretation Comments MAGNESIUM (test code = 1502688562) 2.1 mg/dL 1.7-2.4 Lab Interpretation (test code = Normal 70256-5) [facility]OLIC [facility] (NA, K, CL, CO2, GLUCOSE, BUN, CREATININE, CA)2020-12-10 11:49:05 Test Item Value Reference Range Interpretation Comments NA (test code = 129 mmol/L 135-145 L 2806394762) K (test code = 3.0 mmol/L 3.5-5.0 L 2113611091) CL (test code = 103 mmol/L 98-108 5851603608) CO2 TOTAL (test code = 25 mmol/L 23-31 0439941858) AGAP (test code = 2-16 L 0096360818) BUN (test code = 10 mg/dL 7-23 3143995816) GLUCOSE (test code = 123 mg/dL 70-110 H 8559492815) CREATININE (test code = 0.84 mg/dL 0.50-1.04 7220895378) CALCIUM (test code = 8.9 mg/dL 8.6-10.6 7296935607) eGFR (test code = mL/min/1.73m2 3684233977) ANTHONY (test code = ANTHONY) Association of [...] tests). Lab Interpretation Abnormal (test code = 84822-5) [facility]2021-[facility]-29 11:48:59 Test Item Value Reference Range Interpretation Comments PHOSPHORUS (test code = 1962010462) 1.0 mg/dL 2.5-5.0 L Lab Interpretation (test code = Abnormal 87837-9) [facility] Metabolic Panel (NA, K, CL, CO2, GLUCOSE, BUN, CREATININE, CA)2020-12-10 02:21:51 Test Item Value Reference Range Interpretation Comments NA (test code = 130 mmol/L 135-145 L 5180143771) K (test code = 3.6 mmol/L 3.5-5.0 7545781708) CL (test code = 106 mmol/L 98-108 2998643393) CO2 TOTAL (test code = 21 mmol/L 23-31 L 5401005833) AGAP (test code = 2-16 7816995139) BUN (test code = 9 mg/dL 7-23 6842545040) GLUCOSE (test code = 142 mg/dL 70-110 H 1707436702) CREATININE (test code = 0.59 mg/dL 0.50-1.04 9749110165) CALCIUM (test code = 8.4 mg/dL 8.6-10.6 L 5845078247) eGFR (test code = mL/min/1.73m2 6179372917) ANTHONY (test code = ANTHONY) Association of [...] tests). Lab Interpretation Abnormal (test code = 69054-2) [facility] - Draw no more than 60 minutes before the 1330 dose.2020-12-09 20:29:37 Test Item Value Reference Range Interpretation Comments VANCO TROUGH (test code 20.9 ug/mL 10.0-20.0 H = 9171700609) ANTHONY (test code = ANTHONY) Toxic Range: ?>20 ug/mL 15-20 ug/mL is recommended for severe infection or when Vancomycin RAHEEM is greater than or equal to 2. Lab Interpretation (test Abnormal code = 91945-0) [facility] (NA, K, CL, CO2, GLUCOSE, BUN, CREATININE, CA)2020-12-09 11:48:35 Test Item Value Reference Range Interpretation Comments NA (test code = 129 mmol/L 135-145 L 0939423578) K (test code = 2.8 mmol/L 3.5-5.0 LL 5833273624) CL (test code = 104 mmol/L 98-108 2558029466) CO2 TOTAL (test code = 20 mmol/L 23-31 L 5241108067) AGAP (test code = 2-16 9043927907) BUN (test code = 10 mg/dL 7-23 5334016962) GLUCOSE (test code = 120 mg/dL 70-110 H 8157209866) CREATININE (test code = 0.68 mg/dL 0.50-1.04 0062342986) CALCIUM (test code = 7.9 mg/dL 8.6-10.6 L 2640735552) eGFR (test code = mL/min/1.73m2 8616689647) ANTHONY (test code = ANTHONY) Association of [...] tests). Lab Interpretation Abnormal (test code = 49196-9) [facility]2021-[facility]-28 11:47:08 Test Item Value Reference Range Interpretation Comments MAGNESIUM (test code = 2776552328) 2.2 mg/dL 1.7-2.4 Lab Interpretation (test code = Normal 39037-2) [facility]2021-[facility]-28 11:46:48 Test Item Value Reference Range Interpretation Comments PHOSPHORUS (test code = 4743694115) 2.4 mg/dL 2.5-5.0 L Lab Interpretation (test code = Abnormal 79183-5) [facility] (NA, K, CL, CO2, GLUCOSE, BUN, CREATININE, CA)2020-12-08 12:06:15 Test Item Value Reference Range Interpretation Comments NA (test code = 130 mmol/L 135-145 L 9960647208) K (test code = 2.8 mmol/L 3.5-5.0 LL 9397354480) CL (test code = 104 mmol/L 98-108 6658922689) CO2 TOTAL (test code = 19 mmol/L 23-31 L 0473653243) AGAP (test code = 2-16 2245825349) BUN (test code = 9 mg/dL 7-23 8978407848) GLUCOSE (test code = 114 mg/dL 70-110 H 4951911378) CREATININE (test code = 0.72 mg/dL 0.50-1.04 5947297877) CALCIUM (test code = 7.9 mg/dL 8.6-10.6 L 1137732397) eGFR (test code = mL/min/1.73m2 2467195624) ANTHONY (test code = ANTHONY) Association of [...] tests). Lab Interpretation Abnormal (test code = 17060-2) [facility]2021-10-27 11:58:12 Test Item Value Reference Range Interpretation Comments MAGNESIUM (test code = 0078058203) 1.9 mg/dL 1.7-2.4 Lab Interpretation (test code = Normal 75917-1) [facility]2021-[facility]-27 11:57:52 Test Item Value Reference Range Interpretation Comments PHOSPHORUS (test code = 9975702370) 2.7 mg/dL 2.5-5.0 Lab Interpretation (test code = Normal 88169-7) [facility] - Draw no more than 60 minutes before the 0130 dose.2020-12-08 07:49:28 Test Item Value Reference Range Interpretation Comments VANCO TROUGH (test code 18.4 ug/mL 10.0-20.0 = 2387951068) ANTHONY (test code = ANTHONY) Toxic Range: ?>20 ug/mL 15-20 ug/mL is recommended for severe infection or when Vancomycin RAHEEM is greater than or equal to 2. Lab Interpretation (test Normal code = 60964-3) [facility] WITH [id number] 13:32:28 Test Item Value Reference Range Interpretation [...] (test code = 50.9 fL 39.0-49.9 H 36514-7) RDW-CV (test code = 15.0 % 12.0-15.5 788-0) PLT (test code = See_Comment [Automated 777-3) message] The sy stem which generated this result transmitted reference range : 166 - 358 10*3/ ?L. The reference r miky was not used to interpret this result as normal/abnormal . MPV (test code = 11.3 fL 9.5-12.9 65641-1) NRBC/100 WBC (test See_Comment [Automat ed code = 6764111092) message] The system which generated this result transmitted reference range : 0.0 - 10.0 /100 WBCs. The refer ence range was not u sed to interpret th is result as normal/abnormal . NRBC x10^3 (test code See_Comment [Auto mated = 6093166078) message] The s ystem which generated this result transmitted reference range : 10*3/?L. The reference range was not used to interpret this result as normal/abnormal . GRAN MAT (NEUT) % 57.6 % (test code = 770-8) IMM GRAN % (test code 4.60 % = 1333980929) LYMPH % (test code = 27.4 % 736-9) MONO % (test code = 9.9 % 5905-5) EOS % (test code = 0.2 % 713-8) BASO % (test code = 0.3 % 706-2) GRAN MAT x10^3(ANC) 3.79 10*3/uL 1.88-7.09 (test code = 0435417324) IMM GRAN x10^3 (test 0.30 10*3/uL 0.00-0.06 H code = 7134228995) LYMPH x10^3 (test code 1.80 10*3/uL 1.32-3.29 = 731-0) MONO x10^3 (test code 0.65 10*3/uL 0.33-0.92 = 742-7) EOS x10^3 (test code = <0.03 0.03-0.39 L 711-2) BASO x10^3 (test code <0.03 0.01-0.07 = 704-7) SCHISTOCYTES (test 1+ A code = 800-3) BANDS (test code = Increased A 4426416548) Lab Interpretation Abnormal (test code = 73994-0) [facility]2021-[facility]26 11:15:12 Test Item Value Reference Range Interpretation Comments MAGNESIUM (test code = 0789160620) 2.1 mg/dL 1.7-2.4 Lab Interpretation (test code = Normal 01284-1) [facility] (NA, K, CL, CO2, GLUCOSE, BUN, CREATININE, CA)2020-12-07 11:15:11 Test Item Value Reference Range Interpretation Comments NA (test code = 133 mmol/L 135-145 L 2219006842) K (test code = 3.2 mmol/L 3.5-5.0 L 3074142994) CL (test code = 106 mmol/L 98-108 2519092904) CO2 TOTAL (test code = 18 mmol/L 23-31 L 1238173216) AGAP (test code = 2-16 6109789840) BUN (test code = 9 mg/dL 7-23 9415386030) GLUCOSE (test code = 106 mg/dL 70-110 8903075213) CREATININE (test code = 0.64 mg/dL 0.50-1.04 5701890020) CALCIUM (test code = 8.2 mg/dL 8.6-10.6 L 7528266909) eGFR (test code = mL/min/1.73m2 6019676631) ANTHONY (test code = ANTHONY) Association of [...] tests). Lab Interpretation Abnormal (test code = 28197-4) [facility] METABOLIC PANEL (NA, K, CL, CO2, GLUCOSE, BUN, CREATININE, CA)2020-12-07 03:01:05 Test Item Value Reference Range Interpretation Comments NA (test code = 130 mmol/L 135-145 L 0771612381) K (test code = 3.4 mmol/L 3.5-5.0 L 0895655350) CL (test code = 105 mmol/L 98-108 7541020768) CO2 TOTAL (test code = 20 mmol/L 23-31 L 8027713823) AGAP (test code = 2-16 5357828888) BUN (test code = 10 mg/dL 7-23 2122701740) GLUCOSE (test code = 117 mg/dL 70-110 H 6919240707) CREATININE (test code = 0.69 mg/dL 0.50-1.04 4293751255) CALCIUM (test code = 7.9 mg/dL 8.6-10.6 L 4594542673) eGFR (test code = mL/min/1.73m2 9485957476) ANTHONY (test code = ANTHONY) Association of [...] tests). Lab Interpretation Abnormal (test code = 74957-1) [facility] Metabolic Panel (NA, K, CL, CO2, GLUCOSE, BUN, CREATININE, CA)2020-12-06 17:09:25 Test Item Value Reference Range Interpretation Comments NA (test code = 126 mmol/L 135-145 L 4276628861) K (test code = 2.9 mmol/L 3.5-5.0 LL 8877931458) CL (test code = 104 mmol/L 98-108 7356695633) CO2 TOTAL (test code = 13 mmol/L 23-31 L 0208928328) AGAP (test code = 2-16 4047477580) BUN (test code = 11 mg/dL 7-23 2358989269) GLUCOSE (test code = 147 mg/dL 70-110 H 9601603273) CREATININE (test code = 0.80 mg/dL 0.50-1.04 1775516307) CALCIUM (test code = 7.9 mg/dL 8.6-10.6 L 6128011130) eGFR (test code = mL/min/1.73m2 8821262937) ANTHONY (test code = ANTHONY) Association of [...] tests). Lab Interpretation Abnormal (test code = 68823-5) [facility] AtlantaMagn[facility] [id number] 17:05:09 Test Item Value Reference Range Interpretation Comments MAGNESIUM (test code = 1008756294) 2.3 mg/dL 1.7-2.4 Lab Interpretation (test code = Normal 57566-9) [facility] with [id number] 16:52:56 Test Item Value Reference Range Interpretation Comments WBC (test code = See_Comment [Automated 7374-2) message] The sy stem which generated this result transmitted reference range : 4.30 - 11.10 10*3/?L. The reference range was not used to interpret this result as normal/abnormal . RBC (test code = See_Comment L [Automated 717-4) message] The sy stem which generated this [...] (test code = 50.9 fL 39.0-49.9 H 24825-4) RDW-CV (test code = 15.0 % 12.0-15.5 788-0) PLT (test code = See_Comment [Automated 777-3) message] The sy stem which generated this result transmitted reference range : 166 - 358 10*3/ ?L. The reference r miky was not used to interpret this result as normal/abnormal . MPV (test code = 11.4 fL 9.5-12.9 94060-9) NRBC/100 WBC (test See_Comment [Automat ed code = 6081911089) message] The system which generated this result transmitted reference range : 0.0 - 10.0 /100 WBCs. The refer ence range was not u sed to interpret th is result as normal/abnormal . NRBC x10^3 (test code <0.01 See_Comment [Auto mated = 4775756148) message] The s ystem which generated this result transmitted reference range : 10*3/?L. The reference range was not used to interpret this result as normal/abnormal . GRAN MAT (NEUT) % 53.9 % (test code = 770-8) IMM GRAN % (test code 3.10 % = 0209141103) LYMPH % (test code = 30.8 % 736-9) MONO % (test code = 11.3 % 5905-5) EOS % (test code = 0.3 % 713-8) BASO % (test code = 0.6 % 706-2) GRAN MAT x10^3(ANC) 3.48 10*3/uL 1.88-7.09 (test code = 2363269370) IMM GRAN x10^3 (test 0.20 10*3/uL 0.00-0.06 H code = 9480535750) LYMPH x10^3 (test code 1.99 10*3/uL 1.32-3.29 = 731-0) MONO x10^3 (test code 0.73 10*3/uL 0.33-0.92 = 742-7) EOS x10^3 (test code = <0.03 0.03-0.39 L 711-2) BASO x10^3 (test code 0.04 10*3/uL 0.01-0.07 = 704-7) BANDS (test code = Increased A 9483882059) Lab Interpretation Abnormal (test code = 86811-5) [facility] 00:30:48 Test Item Value Reference Range Interpretation Comments MAGNESIUM (test code = 1922757050) 1.4 mg/dL 1.7-2.4 L Lab Interpretation (test code = Abnormal 85250-2) [facility] (NA, K, CL, CO2, GLUCOSE, BUN, CREATININE, CA)2020-12-06 00:00:55 Test Item Value Reference Range Interpretation Comments NA (test code = 135 mmol/L 135-145 4974274318) K (test code = 2.3 mmol/L 3.5-5.0 LL 6019185829) CL (test code = 116 mmol/L 98-108 H 4036642322) CO2 TOTAL (test code = 14 mmol/L 23-31 L 7608208070) AGAP (test code = 2-16 0433848500) BUN (test code = 16 mg/dL 7-23 6033833040) GLUCOSE (test code = 98 mg/dL 70-110 8370677016) CREATININE (test code = 0.85 mg/dL 0.50-1.04 6257622936) CALCIUM (test code = 5.7 mg/dL 8.6-10.6 LL 6958083465) eGFR (test code = mL/min/1.73m2 9957739821) ANTHONY (test code = ANTHONY) Association of [...] tests). Lab Interpretation Abnormal (test code = 20907-1) [facility] [id number] 20:54:58 Test Item Value Reference Range Interpretation Comments TSH (test code = See_Comment [Automated message] [id number]) The system [employer] generated this result transmitted ref erence range: 0.45 - 4 .70 mIU/L. The refe rence range was not u sed to interpret this result as normal/abnor mal. Lab Interpretation (test Normal code = 62270-1) [facility] [place]:23:21 Test Item Value Reference Range Interpretation Comments LIPASE (test code = 8958365813) 130 U/L 0-220 Lab Interpretation (test code = Normal 97306-9) [facility] [place] [place] [id number] 19:46:50 Test Item Value Reference Range Interpretation [...] RDW-SD (test code = 49.2 fL 39.0-49.9 39257-4) RDW-CV (test code = 14.8 % 12.0-15.5 788-0) PLT (test code = See_Comment [Automated 777-3) message] The system which generated this result transmitted reference range : 166 - 358 10*3/?L. The reference range was not used to interpret this result as normal/abnormal . MPV (test code = 11.9 fL 9.5-12.9 49371-5) NRBC/100 WBC (test See_Comment [Automat ed code = 0624536635) message] The system which generated this result transmitted reference range : 0.0 - 10.0 /100 WBCs. The reference range was not used to interpret this result as normal/abnormal . NRBC x10^3 (test code See_Comment [Auto mated = 8107652638) message] The system which generated this result transmitted reference range : 10*3/?L. The reference range was not used to interpret this result as normal/abnormal . GRAN MAT (NEUT) % 45.3 % (test code = 770-8) IMM GRAN % (test code 1.60 % = 7011755252) LYMPH % (test code = 41.5 % 736-9) MONO % (test code = 10.4 % 5905-5) EOS % (test code = 0.6 % 713-8) BASO % (test code = 0.6 % 706-2) GRAN MAT x10^3(ANC) 3.18 10*3/uL 1.88-7.09 (test code = 2383396427) IMM GRAN x10^3 (test 0.11 10*3/uL 0.00-0.06 H code = 6305967551) LYMPH x10^3 (test 2.91 10*3/uL 1.32-3.29 code [...] BANDS (test code = MARKED INCREASED A 7884698573) LG GRAN LYMPHS (test Rare Rare code = 1459803848) REACT LYMPHS (test Rare code = 5263907212) TOXIC CHANGES (test Present A code = 803-7) Lab Interpretation Abnormal (test code = 38171-6) [facility] >30DAYS[facility]2020-12-05 19:44:00 Test Item Value Reference Range Interpretation Comments POCT Glu (age>30days) (test code = 154 mg/dL 70-110 A 3342) Lab Interpretation (test code = Abnormal 81661-7) [facility] Atlanta[facility]roponin [id number] 19:21:17 Test Item Value Reference Interpretation Comments Range TROPONIN I (test 0.008 ng/mL See_Comment [Automated code = 8512927312) message] The system which generated this result [...] biotin. Lab Interpretation Normal (test code = 42013-9) [facility]. METABOLIC PANEL (64189)2020-12-05 19:10:58 Test Item Value Reference Range Interpretation Comments NA (test code = 122 mmol/L 135-145 L 3482101987) K (test code = 3.2 mmol/L 3.5-5.0 L 5888771101) CL (test code = 97 mmol/L 98-108 L 7092098486) CO2 TOTAL (test code = 16 mmol/L 23-31 L 3028800412) AGAP (test code = 2-16 7783949046) BUN (test code = 21 mg/dL 7-23 1321251496) GLUCOSE (test code = 154 mg/dL 70-110 H 1583992272) CREATININE (test code = 1.40 mg/dL 0.50-1.04 H 6564639146) TOTAL BILI (test code = 0.6 mg/dL 0.1-1.7 0435172697) CALCIUM (test code = 8.6 mg/dL 8.6-10.6 3238688055) T PROTEIN (test code = 5.7 g/dL 6.3-8.2 L 8537853603) ALBUMIN (test code = 3.0 g/dL 3.5-5.0 L 3420856936) ALK PHOS (test code = 187 U/L 34-122 H 9922651249) ALTv (test code = 43 U/L 5-35 H 1742-6) AST(SGOT) (test code = 66 U/L 13-40 H 2350721583) eGFR (test code = mL/min/1.73m2 2411297705) ANTHONY (test code = ANTHONY) Association of [...] tests). Lab Interpretation Abnormal (test code = 90285-3) [facility]2021-[facility]-24 19:10:58 Test Item Value Reference Range Interpretation Comments MAGNESIUM (test code = 5844970722) 1.8 mg/dL 1.7-2.4 Lab Interpretation (test code = Normal 16855-5) [facility] [id number] 18:53:00 Test Item Value Reference Range Interpretation Comments POCT PREG (test code = 1605) negative POCT PREG LOT # (test code = 3575) [id number] POCT PREG TEST DATE (test 2022-02-11 code = 3576) Lab Interpretation (test code = Normal 51610-1) [facility] [place]([place])2020-08-10 17:06:47 Test Item Value Reference Range Interpretation Comments ANTI-SSA(RO) (test code = Negative Negative 8366262400) ANTHONY (test code = ANTHONY) Positive - Antibody detected.Negative - No antibody detected. Lab Interpretation (test Normal code = 70635-6) [facility]SSB([place])2020-08-10 17:06:47 Test Item Value Reference Range Interpretation Comments Anti-SSB(LA) (test code = Negative Negative 8060728092) ANTHONY (test code = ANTHONY) Positive - Antibody detected.Negative - No antibody detected. Lab Interpretation (test Normal code = 95345-1) [facility] Atlanta[facility]HEUMATOID [id number] 14:42:16 Test Item Value Reference Range Interpretation Comments RF (test code = <20 See_Comment [Automated message] 3627824578) The system [employer] generated this result transmitted ref erence range: <20 IU/m L. The reference range was not used to int erpret this result as normal/abnormal . Lab Interpretation (test Normal code = 12562-8) [facility]-REACTIVE [id number] 14:41:04 Test Item Value Reference Range Interpretation Comments CRP (test code = 2996208916) 0.3 mg/dL <0.8 Lab Interpretation (test code = Normal 44754-6) [facility] L[facility] ONLY - [id number] 09:50:30 Test Item Value Reference Range Interpretation Comments RPR (Qualitative) (test code = Nonreactive Nonreactive 97285-9) Lab Interpretation (test code = Normal 12069-0) [facility]HIV 1/2 AG-AB WITH [id number] 20:09:42 Test Item Value Reference Range Interpretation Comments HIV Negative Negative Semi-quantitative (test code = 85955-7) ANTHONY (test code = Non-reactive for HIV-1 ANTHONY) antigen and HIV-1/HIV-2 antibodies. ?No laboratory evidence of HIV infection. ?Repeat in 2-4 weeks if acute HIV infection is suspected. [facility] AtlantaSEDIMENTATION [id number] 19:49:09 Test Item Value Reference Range Interpretation Comments ESR (test code = See_Comment H [Automated message] 5365181646) The system [employer] generated this result transmitted ref erence range: 0 - 20 m m/HR. The reference r miky was not used to interpret this result as normal/abnor mal. Lab Interpretation (test Abnormal code = 51394-9) [facility]. METABOLIC PANEL (16811)2020-08-09 19:29:16 Test Item Value Reference Range Interpretation Comments NA (test code = 133 mmol/L 135-145 L 0364869986) K (test code = 4.4 mmol/L 3.5-5.0 3232832885) CL (test code = 97 mmol/L 98-108 L 0678418885) CO2 TOTAL (test code = 24 mmol/L 23-31 0924426591) AGAP (test code = 2-16 2497946253) BUN (test code = 21 mg/dL 7-23 9052104029) GLUCOSE (test code = 154 mg/dL 70-110 H 8912115283) CREATININE (test code = 0.86 mg/dL 0.50-1.04 7152043284) TOTAL BILI (test code = 0.5 mg/dL 0.1-1.8 3350341152) CALCIUM (test code = 10.0 mg/dL 8.6-10.6 5473821797) T PROTEIN (test code = 8.0 g/dL 6.3-8.2 6972863679) ALBUMIN (test code = 5.1 g/dL 3.5-5.0 H 4292728150) ALK PHOS (test code = 85 U/L 34-122 9423303822) ALTv (test code = 36 U/L 5-35 H 1742-6) AST(SGOT) (test code = 24 U/L 13-40 2910574344) eGFR (test code = mL/min/1.73m2 3673865478) ANTHONY (test code = ANTHONY) Association of [...] tests). Lab Interpretation Abnormal (test code = 39048-2) [facility]INALYSIS2021-06-28 18:21:29 Test Item Value Reference Range Interpretation Comments APPEARANCE (test code = Clear Clear 0353666850) COLOR (test code = Yellow Yellow 9937700911) PH (test code = 4.8-8.0 2550345010) SP GRAVITY (test code = 1.003-1.030 0570143677) GLU U QUAL (test code = Normal Normal 6070594470) BLOOD (test code = Negative Negative 6681453971) KETONES (test code = Negative Negative 4419375613) PROTEIN (test code = Negative Negative 2887-8) UROBILIN (test code = Normal Normal 0699912432) BILIRUBIN (test code = Negative Negative 8271036577) NITRITE (test code = Negative Negative 9816333122) LEUK MURRAY (test code = Negative Negative 5153253211) RBC/HPF (test code = <1 See_Comment [Autom ated message] 0898492125) The system [employer] generated this result transmitted ref erence range: 0 - 3 HP F. The reference range was not used to int erpret this result as normal/abnormal . WBC/HPF (test code = See_Comment [Autom ated message] 0933254089) The system [employer] generated this result transmitted ref erence range: 0 - 5 HP F. The reference range was not used to int erpret this result as normal/abnormal . BACTERIA (test code = Negative Negative 1928402873) MUCOUS (test code = Slight Negative LPF A 9566705106) SQ EPITH (test code = <1 HPF 8761881888) Lab Interpretation (test Abnormal code = 04694-7) [facility]2021-[facility]-28 18:21:29 Test Item Value Reference Range Interpretation Comments APPEARANCE (test code = Clear Clear 5072584220) COLOR (test code = Yellow Yellow 5990647675) PH (test code = 4.8-8.0 7857684008) SP GRAVITY (test code = 1.003-1.030 1352794473) GLU U QUAL (test code = Normal Normal 3298908085) BLOOD (test code = Negative Negative 2799420360) KETONES (test code = Negative Negative 4294006473) PROTEIN (test code = Negative Negative 2887-8) UROBILIN (test code = Normal Normal 0196208064) BILIRUBIN (test code = Negative Negative 4138460121) NITRITE (test code = Negative Negative 5216404961) LEUK MURRAY (test code = Negative Negative 8825540504) RBC/HPF (test code = <1 See_Comment [Autom ated message] 2585181218) The system [employer] generated this result transmitted ref erence range: 0 - 3 HP F. The reference range was not used to int erpret this result as normal/abnormal . WBC/HPF (test code = See_Comment [Autom ated message] 0779824081) The system [employer] generated this result transmitted ref erence range: 0 - 5 HP F. The reference range was not used to int erpret this result as normal/abnormal . BACTERIA (test code = Negative Negative 9960855730) MUCOUS (test code = Slight Negative LPF A 5360572311) SQ EPITH (test code = <1 HPF 1429515434) Lab Interpretation (test Abnormal code = 02901-7) [facility] WITH [id number] 17:36:57 Test Item Value Reference Range Interpretation Comments WBC (test code = See_Comment [Automated 0916-2) message] The sy stem which generated this [...] RDW-SD (test code = 47.8 fL 39.0-49.9 34104-1) RDW-CV (test code = 13.4 % 12.0-15.5 788-0) PLT (test code = See_Comment [Automated 777-3) message] The sy stem which generated this result transmitted reference range : 166 - 358 10*3/ ?L. The reference r miky was not used to interpret this result as normal/abnormal . MPV (test code = 9.4 fL 9.5-12.9 L 18361-4) NRBC/100 WBC (test See_Comment [Automat ed code = 5034693223) message] The system which generated this result transmitted reference range : 0.0 - 10.0 /100 WBCs. The refer ence range was not u sed to interpret th is result as normal/abnormal . NRBC x10^3 (test code <0.01 See_Comment [Auto mated = 1259224407) message] The s ystem which generated this result transmitted reference range : 10*3/?L. The reference range was not used to interpret this result as normal/abnormal . GRAN MAT (NEUT) % 80.8 % (test code = 770-8) IMM GRAN % (test code 1.90 % = 8489229622) LYMPH % (test code = 15.0 % 736-9) MONO % (test code = 2.1 % 5905-5) EOS % (test code = 0.1 % 713-8) BASO % (test code = 0.1 % 706-2) GRAN MAT x10^3(ANC) 6.79 10*3/uL 1.88-7.09 (test code = 7949370997) IMM GRAN x10^3 (test 0.16 10*3/uL 0.00-0.06 H code = 6686479153) LYMPH x10^3 (test code 1.26 10*3/uL 1.32-3.29 L = 731-0) MONO x10^3 (test code 0.18 10*3/uL 0.33-0.92 L = 742-7) EOS x10^3 (test code = <0.03 0.03-0.39 L 711-2) BASO x10^3 (test code <0.03 0.01-0.07 = 704-7) Lab Interpretation Abnormal (test code = 51433-9) [facility] WITH [id number] 17:36:57 Test Item Value Reference Range Interpretation [...] RDW-SD (test code = 47.8 fL 39.0-49.9 42052-1) RDW-CV (test code = 13.4 % 12.0-15.5 788-0) PLT (test code = See_Comment [Automated 777-3) message] The sy stem which generated this result transmitted reference range : 166 - 358 10*3/ ?L. The reference r miky was not used to interpret this result as normal/abnormal . MPV (test code = 9.4 fL 9.5-12.9 L 84895-4) NRBC/100 WBC (test See_Comment [Automat ed code = 2499552289) message] The system which generated this result transmitted reference range : 0.0 - 10.0 /100 WBCs. The refer ence range was not u sed to interpret th is result as normal/abnormal . NRBC x10^3 (test code <0.01 See_Comment [Auto mated = 6389378981) message] The s ystem which generated this result transmitted reference range : 10*3/?L. The reference range was not used to interpret this result as normal/abnormal . GRAN MAT (NEUT) % 80.8 % (test code = 770-8) IMM GRAN % (test code 1.90 % = 9576635660) LYMPH % (test code = 15.0 % 736-9) MONO % (test code = 2.1 % 5905-5) EOS % (test code = 0.1 % 713-8) BASO % (test code = 0.1 % 706-2) GRAN MAT x10^3(ANC) 6.79 10*3/uL 1.88-7.09 (test code = 4451632633) IMM GRAN x10^3 (test 0.16 10*3/uL 0.00-0.06 H code = 1079842749) LYMPH x10^3 (test code 1.26 10*3/uL 1.32-3.29 L = 731-0) MONO x10^3 (test code 0.18 10*3/uL 0.33-0.92 L = 742-7) EOS x10^3 (test code = <0.03 0.03-0.39 L 711-2) BASO x10^3 (test code <0.03 0.01-0.07 = 704-7) Lab Interpretation Abnormal (test code = 57005-7) [facility] PAN[facility] BY [id number] 22:27:23 Test Item Value Reference Range Interpretation Comments Escherichia coli K1 Negative Negative, (test code = 98239-3) Indeterminate, See Comment Haemophilus influenzae Negative Negative, (test code = 05517-7) Indeterminate, See Comment Listeria monocytogenes Negative Negative, (test code = 02037-9) Indeterminate, See Comment Neisseria meningitidis Negative Negative, (encapsulated) (test Indeterminate, code = 56783-9) See Comment Streptococcus agalactiae Negative Negative, (test code = 20282-9) Indeterminate, See Comment Streptococcus pneumoniae Negative Negative, (test code = 50689-2) Indeterminate, See Comment Cytomegalovirus (test Negative Negative, code = 15061-6) Indeterminate, See Comment Enterovirus (test code = Negative Negative, 48287-0) Indeterminate, See Comment Herpes simplex virus 1 Negative Negative, (test code = 10209-9) Indeterminate, See Comment Herpes simplex virus 2 Negative Negative, (test code = 13948-0) Indeterminate, See Comment Human herpesvirus 6 Negative Negative, (test code = 64832-1) Indeterminate, See Comment Human parechovirus (test Negative Negative, code = 40629-3) Indeterminate, See Comment Varicella zoster virus Negative Negative, (test code = 80313-5) Indeterminate, See Comment Cryptococcus Negative Negative, neoformans/gattii (test Indeterminate, code = 57540-8) See Comment ANTHONY (test code = ANTHONY) Negative:A negative result does not rule-out infection. ?This assay does not test for all potential infectious agents. Positive:A positive test result does not necessarily indicate the presence of viable organism. ? Lab Interpretation (test Normal code = 35262-7) [facility] FLUID DIRECT [id number] 21:52:07 Test Item Value Reference Range Interpretation Comments BF COLOR (test code = Clear 5343079385) BF WBC Count (test See_Comment [Automat ed message] The code = 5720709125) system [facility] generated this result transmit karly reference range : 0 - 5 /?L. The reference r miky was not used to interpr et this result as cassandra l/abnormal. BF RBC Count (test See_Comment [Automat ed message] The code = 8446552385) system [facility] generated this result transmit karly reference range : /?L. The reference range was not used to interpr et this result as cassandra l/abnormal. [facility] FLUID MANUAL [id number] 21:52:07BF SEGSComment: Less than 100 cells counted due to low WBC; Differential is not reported in percent. 10 cells counted: 1 Neutrophils, 9 Lymphocytes, 0 Macrophages [facility]#CELS CNTDUTMB LABORATORY SERVICESUnTexas Health [facility] StephenvilleCEREBROSPINAL FLUID [id number] 20:58:36 Test Item Value Reference Range Interpretation Comments T. PRO CSF (test code = 68.0 mg/dL 15.0-45.0 H 1285454825) UNSPUN BODY FLUID COLOR Light Red (test code = 0574722816) UNSPUN BODY FLUID CLARITY Cloudy (test code = 3275270319) SPUN BODY FLUID COLOR Okarche (test code = 7426642519) SPUN BODY FLUID CLARITY Clear (test code = 3670282129) Sediment (test code = The se diment 2348790568) volume is <0.1 mLs of the total fl uid volume of 5cc a nd its color is re d. Lab Interpretation (test Abnormal code = 67672-3) [facility] [id number] 20:58:25 Test Item Value Reference Range Interpretation Comments GLU CSF (test code = 74 mg/dL 50-80 1321763323) UNSPUN BODY FLUID Light Red COLOR (test code = 6449324717) UNSPUN BODY FLUID Cloudy CLARITY (test code = 9222649268) SPUN BODY FLUID COLOR Okarche (test code = 9301919192) SPUN BODY FLUID Clear CLARITY (test code = 5844001626) Sediment (test code = The se diment volume is 4490355675) <0.1 mLs of the total fluid volume of 5cc and its color i s red. [facility] CHEST 1 [id number] 15:19:43 No acute cardiopulmonary process. Preliminary Report Dictated by Resident: Francisco Reyes MD., have reviewed this study and agree with theabove report.PROCEDURE: XR CHEST 1 VW CLINICAL INDICATION: leukocytosis TECHNIQUE: Frontal chest radiograph was obtained. COMPARISON: 06/26/2020 FINDINGS: The lungs are clear. No pleural effusion or pneumothorax is seen. The heart is normal in size. No acute bony abnormality is noted. [facility], Radiant Results Inft User - 07/14/2020 10:20 [...] this study and agree with theabove report. [facility] GLUCOSE (AUTOMATED)2020-07-14 15:07:20 Test Item Value Reference Range Interpretation Comments POCT GLU (test code = 8973449244) 98 mg/dL 70-110 Lab Interpretation (test code = Normal 94673-1) [facility] Atlanta[facility]-REACTIVE [id number] 14:51:17 Test Item Value Reference Range Interpretation Comments CRP (test code = 1865522366) 0.2 mg/dL <0.8 Lab Interpretation (test code = Normal 92001-2) [facility]NES[facility]UM2021-06-02 14:40:38 Test Item Value Reference Range Interpretation Comments MAGNESIUM (test code = 3314317529) 2.1 mg/dL 1.7-2.4 Lab Interpretation (test code = Normal 98849-7) [facility] AtlantaPhosphorus [id number] 13:50:50 Test Item Value Reference Range Interpretation Comments PHOSPHORUS (test code = 8343362279) 3.1 mg/dL 2.5-5.0 Lab Interpretation (test code = Normal 00932-9) [facility] Metabolic Panel (NA, K, CL, CO2, GLUCOSE, BUN, CREATININE, CA)2020-07-14 12:41:09 Test Item Value Reference Range Interpretation Comments NA (test code = 136 mmol/L 135-145 9189957415) K (test code = 4.3 mmol/L 3.5-5.0 6619635842) CL (test code = 108 mmol/L 98-108 4248808376) CO2 TOTAL (test code = 17 mmol/L 23-31 L 5130930281) AGAP (test code = 2-16 7038394949) BUN (test code = 22 mg/dL 7-23 3428992936) GLUCOSE (test code = 98 mg/dL 70-110 3879960616) CREATININE (test code = 0.70 mg/dL 0.50-1.04 4433009702) CALCIUM (test code = 9.4 mg/dL 8.6-10.6 5943755605) eGFR (test code = mL/min/1.73m2 8816498284) ANTHONY (test code = ANTHONY) Association of [...] tests). Lab Interpretation Abnormal (test code = 19411-4) [facility] AtlantaHepatic Function Panel (ALB, T.PRO, BILI T, BU/BC, ALT, AST, ALK PHOS)2020-07-14 12:41:09 Test Item Value Reference Range Interpretation Comments TOTAL BILI (test code = 9347869441) 0.3 mg/dL 0.1-1.1 BILI UNCON (test code = 6238993765) 0.1 mg/dL 0.1-1.1 BILI CONJ (test code = 4566331972) 0.0 mg/dL 0.0-0.3 T PROTEIN (test code = 3150676556) 7.6 g/dL 6.3-8.2 ALBUMIN (test code = 5209900258) 4.6 g/dL 3.5-5.0 ALK PHOS (test code = 4519684509) 120 U/L 34-122 ALTv (test code = 1742-6) 42 U/L 5-35 H AST(SGOT) (test code = 8941136015) 24 U/L 13-40 Lab Interpretation (test code = Abnormal 90300-2) [facility] AtlantaUrinalysis2021-06-02 10:22:07 Test Item Value Reference Range Interpretation Comments APPEARANCE (test code = Clear Clear 2546888145) COLOR (test code = Yellow Yellow 6830981052) PH (test code = 4.8-8.0 5559085036) SP GRAVITY (test code = 1.003-1.030 9882580039) GLU U QUAL (test code = Normal Normal 4539027262) BLOOD (test code = Negative Negative 3529906088) KETONES (test code = Negative Negative 8300514576) PROTEIN (test code = Negative Negative 2887-8) UROBILIN (test code = Normal Normal 4919654154) BILIRUBIN (test code = Negative Negative 3446543490) NITRITE (test code = Negative Negative 1061791993) LEUK MURRAY (test code = Negative Negative 3177891892) RBC/HPF (test code = See_Comment [Autom ated message] 4964361967) The system [employer] generated this result transmitted ref erence range: 0 - 3 HP F. The reference range was not used to int erpret this result as normal/abnormal . WBC/HPF (test code = See_Comment [Autom ated message] 7958565378) The system [employer] generated this result transmitted ref erence range: 0 - 5 HP F. The reference range was not used to int erpret this result as normal/abnormal . BACTERIA (test code = Negative Negative 9298171636) MUCOUS (test code = Slight Negative LPF A 9321808856) SQ EPITH (test code = See_Comment [Auto mated message] 0214873828) The system [employer] generated this result transmitted ref erence range: <=2 HPF. The reference range was not used to int erpret this result as normal/abnormal . Lab Interpretation (test Abnormal code = 54351-6) [facility]OVID[facility] (ID NOW RAPID TESTING)2020-07-14 09:45:51 Test Item Value Reference Range Interpretation Comments SARS-CoV-2 Rapid ID NOW Not Detected Not Detected (test code = 81179-1) ANTHONY (test code = ANTHONY) ID NOW COVID-19 Assay is an isothermal nucleic acid amplification test intended for the qualitative detection of nucleic acid from SARS-CoV-2 viral RNA in nasopharyngeal (GLUE WHEEL OPERATOR) specimens. It is used under Emergency Use [...] indicated. Lab Interpretation Normal (test code = 58091-9) [facility] with [id number] 02:07:47 Test Item Value Reference Range Interpretation Comments WBC (test code = See_Comment H [Automated 4669-2) message] The system which generated this result transmit karly reference range : 4.30 - 11.10 10*3/?L. The reference range was not used to interpret this result as normal/abnormal . RBC (test code = See_Comment L [Automated 559-8) message] The system which generated this result [...] RDW-SD (test code = 47.8 fL 39.0-49.9 66763-9) RDW-CV (test code = 13.6 % 12.0-15.5 788-0) PLT (test code = See_Comment H [Automated 777-3) message] The system which generated this result transmit karly reference range : 166 - 358 10*3/ ?L. The reference range was not u sed to interpret th is result as normal/abnormal . MPV (test code = 10.6 fL 9.5-12.9 21996-3) NRBC/100 WBC (test See_Comment [Automat ed code = 4653137174) message] The system which generated this result transmit karly reference range : 0.0 - 10.0 /100 WBCs. The reference range was not used to interpret this result as normal/abnormal . NRBC x10^3 (test code See_Comment [Auto mated = 7041498573) message] The system which generated this result transmit karly reference range : 10*3/?L. The reference range was not used to interpret this result as normal/abnormal . GRAN MAT (NEUT) % 70.5 % (test code = 770-8) IMM GRAN % (test code 1.60 % = 3661197766) LYMPH % (test code = 20.8 % 736-9) MONO % (test code = 6.8 % 5905-5) EOS % (test code = 0.1 % 713-8) BASO % (test code = 0.2 % 706-2) GRAN MAT x10^3(ANC) 12.19 10*3/uL 1.88-7.09 H (test code = 2892289068) IMM GRAN x10^3 (test 0.27 10*3/uL 0.00-0.06 H code = 0608151980) LYMPH x10^3 (test code 3.58 10*3/uL 1.32-3.29 H = 731-0) MONO x10^3 (test code 1.17 10*3/uL 0.33-0.92 H = 742-7) EOS x10^3 (test code = <0.03 0.03-0.39 L 711-2) BASO x10^3 (test code 0.03 10*3/uL 0.01-0.07 = 704-7) Lab Interpretation Abnormal (test code = 67663-5) [facility] AtlantaSEDIMENTATION [id number] 02:02:09 Test Item Value Reference Range Interpretation Comments ESR (test code = See_Comment H [Automated message] 3869586544) The system [employer] generated this result transmitted ref erence range: 0 - 20 m m/HR. The reference r miky was not used to interpret this result as normal/abnor mal. Lab Interpretation (test Abnormal code = 17207-9) [facility] WITH [id number] 03:30:13 Test Item Value Reference Range Interpretation [...] RDW-SD (test code = 48.1 fL 39.0-49.9 65360-6) RDW-CV (test code = 13.3 % 12.0-15.5 788-0) PLT (test code = See_Comment [Automated 777-3) message] The sy stem which generated this result transmitted reference range : 166 - 358 10*3/ ?L. The reference r miky was not used to interpret this result as normal/abnormal . MPV (test code = 10.4 fL 9.5-12.9 53921-0) NRBC/100 WBC (test See_Comment [Automat ed code = 3960581015) message] The system which generated this result transmitted reference range : 0.0 - 10.0 /100 WBCs. The refer ence range was not u sed to interpret th is result as normal/abnormal . NRBC x10^3 (test code <0.01 See_Comment [Auto mated = 2353005534) message] The s ystem which generated this result transmitted reference range : 10*3/?L. The reference range was not used to interpret this result as normal/abnormal . GRAN MAT (NEUT) % 44.6 % (test code = 770-8) IMM GRAN % (test code 0.80 % = 0125486278) LYMPH % (test code = 43.3 % 736-9) MONO % (test code = 10.0 % 5905-5) EOS % (test code = 0.9 % 713-8) BASO % (test code = 0.4 % 706-2) GRAN MAT x10^3(ANC) 3.52 10*3/uL 1.88-7.09 (test code = 1777551024) IMM GRAN x10^3 (test 0.06 10*3/uL 0.00-0.06 code = 7089950761) LYMPH x10^3 (test code 3.42 10*3/uL 1.32-3.29 H = 731-0) MONO x10^3 (test code 0.79 10*3/uL 0.33-0.92 = 742-7) EOS x10^3 (test code = 0.07 10*3/uL 0.03-0.39 711-2) BASO x10^3 (test code 0.03 10*3/uL 0.01-0.07 = 704-7) Lab Interpretation Abnormal (test code = 44635-6) [facility]38:39 Test Item Value Reference Range Interpretation Comments LIPASE (test code = 0437069009) 39 U/L 0-220 Lab Interpretation (test code = Normal 47735-3) [facility]. METABOLIC PANEL (04586)2020-07-04 19:20:59 Test Item Value Reference Range Interpretation Comments NA (test code = 138 mmol/L 135-145 4180692204) K (test code = 3.9 mmol/L 3.5-5.0 8562377402) CL (test code = 101 mmol/L 98-108 6070234945) CO2 TOTAL (test code = 27 mmol/L 23-31 5572953639) AGAP (test code = 2-16 8291119017) BUN (test code = 20 mg/dL 7-23 2154884311) GLUCOSE (test code = 105 mg/dL 70-110 8734015623) CREATININE (test code = 0.78 mg/dL 0.50-1.04 1505902826) TOTAL BILI (test code = 0.4 mg/dL 0.1-1.3 6268632666) CALCIUM (test code = 9.8 mg/dL 8.6-10.6 0590865929) T PROTEIN (test code = 9.1 g/dL 6.3-8.2 H 3472006805) ALBUMIN (test code = 4.9 g/dL 3.5-5.0 6097415040) ALK PHOS (test code = 171 U/L 34-122 H 3263889001) ALTv (test code = 136 U/L 5-35 H 1742-6) AST(SGOT) (test code = 82 U/L 13-40 H 9386182311) eGFR (test code = mL/min/1.73m2 6826564272) ANTHONY (test code = ANTHONY) Association of [...] tests). Lab Interpretation Abnormal (test code = 58650-5) [facility] 19:14:12 Test Item Value Reference Range Interpretation Comments APPEARANCE (test code = Clear Clear 0274931139) COLOR (test code = Yellow Yellow 7520877838) PH (test code = 4.8-8.0 9968688147) SP GRAVITY (test code = 1.003-1.030 8569929643) GLU U QUAL (test code = Normal Normal 2104809577) BLOOD (test code = Negative Negative 4349889518) KETONES (test code = Negative Negative 4537260234) PROTEIN (test code = Negative Negative 2887-8) UROBILIN (test code = Normal Normal 7224789983) BILIRUBIN (test code = Negative Negative 4309990836) NITRITE (test code = Negative Negative 7727984675) LEUK MURRAY (test code = 75/uL Negative A 0101731404) RBC/HPF (test code = See_Comment [Autom ated message] 6837448684) The system [employer] generated this result transmitted ref erence range: 0 - 3 HP F. The reference range was not used to int erpret this result as normal/abnormal . WBC/HPF (test code = See_Comment H [Autom ated message] 7931115125) The system [employer] generated this result transmitted ref erence range: 0 - 5 HP F. The reference range was not used to int erpret this result as normal/abnormal . BACTERIA (test code = Negative Negative 0692583859) MUCOUS (test code = Slight Negative LPF A 1276409532) SQ EPITH (test code = HPF 4678054441) Lab Interpretation (test Abnormal code = 16864-7) [facility] WITH [id number] 19:10:40 Test Item Value Reference Range Interpretation [...] RDW-SD (test code = 47.2 fL 39.0-49.9 47857-1) RDW-CV (test code = 13.2 % 12.0-15.5 788-0) PLT (test code = See_Comment [Automated 777-3) message] The sy stem which generated this result transmitted reference range : 166 - 358 10*3/ ?L. The reference r miky was not used to interpret this result as normal/abnormal . MPV (test code = 10.5 fL 9.5-12.9 72747-8) NRBC/100 WBC (test See_Comment [Automat ed code = 2016921631) message] The system which generated this result transmitted reference range : 0.0 - 10.0 /100 WBCs. The refer ence range was not u sed to interpret th is result as normal/abnormal . NRBC x10^3 (test code <0.01 See_Comment [Auto mated = 2891196412) message] The s [email or web address] which generated this result transmitted reference range : 10*3/?L. The reference range was not used to interpret this result as normal/abnormal . GRAN MAT (NEUT) % 54.8 % (test code = 770-8) IMM GRAN % (test code 0.80 % = 7135894475) LYMPH % (test code = 32.1 % 736-9) MONO % (test code = 10.3 % 5905-5) EOS % (test code = 1.7 % 713-8) BASO % (test code = 0.3 % 706-2) GRAN MAT x10^3(ANC) 3.46 10*3/uL 1.88-7.09 (test code = 7038976081) IMM GRAN x10^3 (test 0.05 10*3/uL 0.00-0.06 code = 8541613685) LYMPH x10^3 (test code 2.03 10*3/uL 1.32-3.29 = 731-0) MONO x10^3 (test code 0.65 10*3/uL 0.33-0.92 = 742-7) EOS x10^3 (test code = 0.11 10*3/uL 0.03-0.39 711-2) BASO x10^3 (test code <0.03 0.01-0.07 = 704-7) Lab Interpretation Abnormal (test code = 90935-1) [facility] Atlanta[facility]OL[facility] [id number] 17:09:15 Test Item Value Reference Range Interpretation Comments TROPONIN I (test 0.000 ng/mL See_Comment [Automated code = 5790066179) message] The system which generated this result transmitted reference range : <=0.034. The reference range was not used to interpret this result as normal/abnormal . ANTHOYN (test code = Equal or Less than [...] ? Lab Interpretation Normal (test code = 39975-3) [facility] [place]MR BRAIN WO [id number] 15:28:24 Within the limitation of motion degrading [...] reviewed this study and agree with theabove report.[facility] 2020-06-27 01:50:14 No large vessel [...] suspected TECHNIQUE: Axial CT imaging of the [place] and from the skull baseto the superior mediastinum was obtained during arterial phase after theintravenous administration of IV contrast. Coronal, sagittal, and MIPS wereconstructed. COMPARISON: Same day CT head FINDINGS: CTA HEAD: The PICA origin is visualized bilaterally. The basilar artery is normal incaliber. Common origin of the left superior cerebellar and DOCK ASSOCIATE is noted.The superior cerebellar arteries are patent. The posterior cerebralarteries are patent. A right DOCK ASSOCIATE is identified. Asmall leftposterior communicating artery is [...] suspected TECHNIQUE: Axial CT imaging of the [place] and from the skull basetothe superior mediastinum was obtained during arterial phase after theintravenous administration of IV contrast. Coronal, sagittal, and MIPS wereconstructed.COMPARISON: Same day CT headFINDINGS:CTA HEAD:The PICA origin is visualized bilaterally. The basilar artery is normal incaliber. Common origin of the left superior cerebellar and DOCK ASSOCIATE is noted.The superior cerebellar arteries are patent. The posterior cerebralarteries are patent. A right DOCK ASSOCIATE is identified. A small leftposterior communicatingartery is [...] this study and agree with theabove report. [facility] [id number] 01:50:14 No large vessel occlusion or flow-limiting stenosis is identified in thehead and neck arteries. Follow-up with dedicated thyroid ultrasound on a non-emergent, outpatientbasis is recommended for further characterization. Preliminary Report Dictated by Resident: Aury Hallman MD.,have reviewed this study and agree with theabove report.EXAM: CT ANGIOGRAM HEAD, CT ANGIOGRAM NECK HISTORY: ?Headache, intracranial hemorrhage suspected TECHNIQUE: Axial CT imaging of the [place] and from the skull baseto the superior mediastinum was obtained during arterial phase after theintravenous administration of IV contrast. Coronal, sagittal, and MIPS wereconstructed. COMPARISON: Same day CT head FINDINGS: CTA HEAD: The PICA origin is visualized bilaterally. The basilar artery is normal incaliber. Common origin of the left superior cerebellar and DOCK ASSOCIATE is noted.The superior cerebellar arteries are patent. The posterior cerebralarteries are patent. A right DOCK ASSOCIATE is identified. Asmall leftposterior communicating artery is [...] suspected TECHNIQUE: Axial CT imaging of the [place] and from the skull basetothe superior mediastinum was obtained during arterial phase after theintravenous administration of IV contrast. Coronal, sagittal, and MIPS wereconstructed.COMPARISON: Same day CT headFINDINGS:CTA HEAD:The PICA origin is visualized bilaterally. The basilar artery is normal incaliber. Common origin of the left superior cerebellar and DOCK ASSOCIATE is noted.The superior cerebellar arteries are patent. The posterior cerebralarteries are patent. A right DOCK ASSOCIATE is identified. A small leftposterior communicating artery [...] this study and agree with theabove report. [facility] AtlantaSEDIMENTATION [id number] 01:00:08 Test Item Value Reference Range Interpretation Comments ESR (test code = See_Comment H [Automated message] 8629008501) The system [employer] generated this result transmitted ref erence range: 0 - 20 m m/HR. The reference r miky was not used to interpret this result as normal/abnor mal. Lab Interpretation (test Abnormal code = 20664-6) [facility] HEAD WO [id number] 00:39:04 No acute intracranial hemorrhage or mass [...] reviewed this study and agree with theabove report.[facility] (ID NOW RAPID TESTING)2020-06-26 22:58:15 Test Item Value Reference Range Interpretation Comments SARS-CoV-2 Rapid ID NOW Not Detected Not Detected (test code = 51442-5) ANTHONY (test code = ANTHONY) ID NOW COVID-19 Assay is an isothermal nucleic acid amplification test intended for the qualitative detection of nucleic acid from SARS-CoV-2 viral RNA in nasopharyngeal (GLUE WHEEL OPERATOR) specimens. It is used under Emergency Use [...] indicated. Lab Interpretation Normal (test code = 18292-2) [facility] 1 [id number] 22:12:42 No acute cardiopulmonary abnormality. Preliminary Report [...] reviewed this study and agree with the abovereport.[facility] 2020-06-26 21:49:50 Test Item Value Reference Range Interpretation Comments APPEARANCE (test code = Clear Clear 9878154970) COLOR (test code = Yellow Yellow 2391522141) PH (test code = 4.8-8.0 4767322364) SP GRAVITY (test code = 1.003-1.030 9600202005) GLU U QUAL (test code = Normal Normal 9601131371) BLOOD (test code = Negative Negative 8961992210) KETONES (test code = Negative Negative 6909620773) PROTEIN (test code = Negative Negative 2887-8) UROBILIN (test code = Normal Normal 3813118764) BILIRUBIN (test code = Negative Negative 7881159960) NITRITE (test code = Negative Negative 3108933752) LEUK MURRAY (test code = Negative Negative 1327243934) RBC/HPF (test code = See_Comment [Autom ated message] 1945806127) The system [employer] generated this result transmitted ref erence range: 0 - 3 HP F. The reference range was not used to int erpret this result as normal/abnormal . WBC/HPF (test code = See_Comment [Autom ated message] 6410183790) The system [employer] generated this result transmitted ref erence range: 0 - 5 HP F. The reference range was not used to int erpret this result as normal/abnormal . BACTERIA (test code = Negative Negative 9936851365) MUCOUS (test code = Slight Negative LPF A 7642975145) SQ EPITH (test code = HPF 4481744861) Lab Interpretation (test Abnormal code = 57361-3) [facility] AtlantaTroponin [id number] 21:18:44 Test Item Value Reference Range Interpretation Comments TROPONIN I (test <0.012 See_Comment [Automated code = 3193234981) message] The system which generated this result [...] ? Lab Interpretation Normal (test code = 89086-8) [facility] Metabolic Panel (NA, K, CL, CO2, GLUCOSE, BUN, CREATININE, CA)2020-06-26 21:07:49 Test Item Value Reference Range Interpretation Comments NA (test code = 141 mmol/L 135-145 9082299767) K (test code = 4.1 mmol/L 3.5-5.0 1961285816) CL (test code = 109 mmol/L 98-108 H 7949395954) CO2 TOTAL (test code = 23 mmol/L 23-31 4038647766) AGAP (test code = 2-16 3827314460) BUN (test code = 19 mg/dL 7-23 0921648345) GLUCOSE (test code = 112 mg/dL 70-110 H 2441615236) CREATININE (test code = 0.87 mg/dL 0.50-1.04 8501272787) CALCIUM (test code = 9.6 mg/dL 8.6-10.6 2828096812) eGFR (test code = mL/min/1.73m2 9952132032) ANTHONY (test code = ANTHONY) Association of [...] tests). Lab Interpretation Abnormal (test code = 00882-0) [facility] (ALB, T.PRO, BILI T, BU/BC, ALT, AST, ALK PHOS)2020-06-26 21:07:28 Test Item Value Reference Range Interpretation Comments TOTAL BILI (test code = 5838795305) 0.3 mg/dL 0.1-1.1 BILI UNCON (test code = 3770165654) 0.1 mg/dL 0.1-1.1 BILI CONJ (test code = 0938958161) 0.0 mg/dL 0.0-0.3 T PROTEIN (test code = 3848409731) 7.4 g/dL 6.3-8.2 ALBUMIN (test code = 2331145470) 4.4 g/dL 3.5-5.0 ALK PHOS (test code = 1275647030) 138 U/L 34-122 H ALTv (test code = 1742-6) 32 U/L 5-35 AST(SGOT) (test code = 3809019302) 40 U/L 13-40 Lab Interpretation (test code = Abnormal 36731-9) [facility] with [id number] 20:55:04 Test Item Value Reference Range Interpretation [...] RDW-SD (test code = 49.3 fL 39.0-49.9 37239-5) RDW-CV (test code = 13.7 % 12.0-15.5 788-0) PLT (test code = See_Comment [Automated 777-3) message] The sy stem which generated this result transmitted reference range : 166 - 358 10*3/ ?L. The reference r miky was not used to interpret this result as normal/abnormal . MPV (test code = 10.7 fL 9.5-12.9 41842-7) NRBC/100 WBC (test See_Comment [Automat ed code = 0474078189) message] The system which generated this result transmitted reference range : 0.0 - 10.0 /100 WBCs. The refer ence range was not u sed to interpret th is result as normal/abnormal . NRBC x10^3 (test code <0.01 See_Comment [Auto mated = 2612386748) message] The s ystem which generated this result transmitted reference range : 10*3/?L. The reference range was not used to interpret this result as normal/abnormal . GRAN MAT (NEUT) % 57.2 % (test code = 770-8) IMM GRAN % (test code 0.20 % = 5703066912) LYMPH % (test code = 31.8 % 736-9) MONO % (test code = 9.9 % 5905-5) EOS % (test code = 0.6 % 713-8) BASO % (test code = 0.3 % 706-2) GRAN MAT x10^3(ANC) 3.80 10*3/uL 1.88-7.09 (test code = 4047273165) IMM GRAN x10^3 (test <0.03 0.00-0.06 code = 2461533994) LYMPH x10^3 (test code 2.11 10*3/uL 1.32-3.29 = 731-0) MONO x10^3 (test code 0.66 10*3/uL 0.33-0.92 = 742-7) EOS x10^3 (test code = 0.04 10*3/uL 0.03-0.39 711-2) BASO x10^3 (test code <0.03 0.01-0.07 = 704-7) Lab Interpretation Abnormal (test code = 81542-3) [facility]. METABOLIC PANEL (36747)2020-06-01 11:34:39 Test Item Value Reference Range Interpretation Comments NA (test code = 137 mmol/L 135-145 0538330836) K (test code = 4.3 mmol/L 3.5-5.0 6032598309) CL (test code = 106 mmol/L 98-108 8616782252) CO2 TOTAL (test code = 26 mmol/L 23-31 0707412678) AGAP (test code = 2-16 8838414664) BUN (test code = 13 mg/dL 7-23 4428659439) GLUCOSE (test code = 81 mg/dL 70-110 4467124885) CREATININE (test code = 0.76 mg/dL 0.50-1.04 5477216571) TOTAL BILI (test code = 0.4 mg/dL 0.1-1.1 6320079164) CALCIUM (test code = 8.5 mg/dL 8.6-10.6 L 4717048904) T PROTEIN (test code = 6.0 g/dL 6.3-8.2 L 6084188830) ALBUMIN (test code = 3.5 g/dL 3.5-5.0 2516253900) ALK PHOS (test code = 128 U/L 34-122 H 0500667820) ALTv (test code = 54 U/L 5-35 H 1742-6) AST(SGOT) (test code = 51 U/L 13-40 H 0084016820) eGFR (test code = mL/min/1.73m2 4606667736) ANTHONY (test code = ANTHONY) Association of [...] tests). Lab Interpretation Abnormal (test code = 55647-3) [facility] COVID [id number] 02:48:13COVID DMT InterpretationInterpretation/Recommendations: Molecular NAAT Tests for [...] COVID-19 testing the patient has had at [facility], including molecular NAAT testing (more commonlyknown as PCR testing and Rapid ID Now testing) and antibody testing. It does not take into account any testing that a patient has had outside of the [facility] medical record. [facility] LABORATORY SERVICESCOVID HeebkwnXOON-HaZ-1 Rapid ID NOW (no units) ? ? Date ? Value ? 05/30/2020 ? Not Detected ? [facility] (NA, K, CL, CO2, GLUCOSE, BUN, CREATININE, CA)2020-05-31 15:23:27 Test Item Value Reference Range Interpretation Comments NA (test code = 137 mmol/L 135-145 0341962897) K (test code = 4.0 mmol/L 3.5-5.0 9162890090) CL (test code = 105 mmol/L 98-108 9442500702) CO2 TOTAL (test code 27 mmol/L 23-31 = 5668379494) AGAP (test code = 2-16 5335500453) BUN (test code = 14 mg/dL 7-23 8551024470) GLUCOSE (test code = 92 mg/dL 70-110 5445967796) CREATININE (test code 0.72 mg/dL 0.50-1.04 = 0581514302) CALCIUM (test code = 8.8 mg/dL 8.6-10.6 8568552935) eGFR (test code = mL/min/1.73m2 9111655127) ANTHONY (test code = ANTHONY) Association of [...] or urine or abnormalities in imaging tests). [facility] with [id number] 12:40:08 Test Item Value Reference Range Interpretation [...] (test code = 51.6 fL 39.0-49.9 H 11644-6) RDW-CV (test code = 14.3 % 12.0-15.5 788-0) PLT (test code = See_Comment [Automated 777-3) message] The sy stem which generated this result transmitted reference range : 166 - 358 10*3/ ?L. The reference r miky was not used to interpret this result as normal/abnormal . MPV (test code = 10.0 fL 9.5-12.9 33889-7) NRBC/100 WBC (test See_Comment [Automat ed code = 4823105562) message] The system which generated this result transmitted reference range : 0.0 - 10.0 /100 WBCs. The refer ence range was not u sed to interpret th is result as normal/abnormal . NRBC x10^3 (test code <0.01 See_Comment [Auto mated = 1789241102) message] The s ystem which generated this result transmitted reference range : 10*3/?L. The reference range was not used to interpret this result as normal/abnormal . GRAN MAT (NEUT) % 40.2 % (test code = 770-8) IMM GRAN % (test code 0.40 % = 9298709619) LYMPH % (test code = 47.8 % 736-9) MONO % (test code = 10.5 % 5905-5) EOS % (test code = 0.9 % 713-8) BASO % (test code = 0.2 % 706-2) GRAN MAT x10^3(ANC) 2.15 10*3/uL 1.88-7.09 (test code = 2185126700) IMM GRAN x10^3 (test <0.03 0.00-0.06 code = 5711322769) LYMPH x10^3 (test code 2.55 10*3/uL 1.32-3.29 = 731-0) MONO x10^3 (test code 0.56 10*3/uL 0.33-0.92 = 742-7) EOS x10^3 (test code = 0.05 10*3/uL 0.03-0.39 711-2) BASO x10^3 (test code <0.03 0.01-0.07 = 704-7) Lab Interpretation Abnormal (test code = 76299-8) [facility]EL[facility] W WO [id number] 21:54:53 1. ?Nonobstructive left nephrolithiasis. No striated [...] this study and agree with theabove report. [facility] (ID NOW RAPID TESTING)2020-05-30 20:50:01 Test Item Value Reference Range Interpretation Comments SARS-CoV-2 Rapid ID NOW Not Detected Not Detected (test code = 55405-0) ANTHONY (test code = ANTHONY) ID NOW COVID-19 Assay is an isothermal nucleic acid amplification test intended for the qualitative detection of nucleic acid from SARS-CoV-2 viral RNA in nasopharyngeal (GLUE WHEEL OPERATOR) specimens. It is used under Emergency Use [...] indicated. Lab Interpretation Normal (test code = 70684-0) [facility] Metabolic Panel (NA, K, CL, CO2, GLUCOSE, BUN, CREATININE, CA)2020-05-30 20:40:22 Test Item Value Reference Range Interpretation Comments NA (test code = 139 mmol/L 135-145 0038792230) K (test code = 4.0 mmol/L 3.5-5.0 2067913523) CL (test code = 105 mmol/L 98-108 3259695610) CO2 TOTAL (test code 25 mmol/L 23-31 = 8092249274) AGAP (test code = 2-16 3476589765) BUN (test code = 18 mg/dL 7-23 3788020672) GLUCOSE (test code = 100 mg/dL 70-110 1293811426) CREATININE (test code 0.66 mg/dL 0.50-1.04 = 7990123252) CALCIUM (test code = 9.2 mg/dL 8.6-10.6 9666601351) eGFR (test code = mL/min/1.73m2 1592884548) ANTHONY (test code = ANTHONY) Association of [...] or urine or abnormalities in imaging tests). [facility] (ALB, T.PRO, BILI T, BU/BC, ALT, AST, ALK PHOS)2020-05-30 20:40:22 Test Item Value Reference Range Interpretation Comments TOTAL BILI (test code = 0130756403) 0.4 mg/dL 0.1-1.1 BILI UNCON (test code = 0039256385) 0.2 mg/dL 0.1-1.1 BILI CONJ (test code = 5866310107) 0.0 mg/dL 0.0-0.3 T PROTEIN (test code = 2142204444) 7.7 g/dL 6.3-8.2 ALBUMIN (test code = 2586236690) 4.6 g/dL 3.5-5.0 ALK PHOS (test code = 4000748966) 158 U/L 34-122 H ALTv (test code = 1742-6) 70 U/L 5-35 H AST(SGOT) (test code = 2960971298) 46 U/L 13-40 H Lab Interpretation (test code = Abnormal 60589-8) [facility] Atl[facility]aaPTT2021-04-18 20:37:21 Test Item Value Reference Range Interpretation Comments APTT Patient (test See_Comment [Automat ed code = 3173-2) message] The system which generated this result transmitted reference range : 23 - 38 Seconds . The reference range was not used to interpr et this result as normal/abnormal . ANTHONY (test code = ANTHONY) The [facility] patient population mean normal value for aPTT is 30 seconds. Lab Interpretation Normal (test code = 28206-2) [facility] AtlantaProthrombin Time (PT) / [id number] 20:35:00 Test Item Value Reference Range Interpretation [...] tions. Lab Interpretation (test Normal code = 15789-6) [facility] AtlantaUrinalysis2021-04-18 20:34:10 Test Item Value Reference Range Interpretation Comments APPEARANCE (test code = Clear Clear 3362342217) COLOR (test code = Yellow Yellow 4230441695) PH (test code = 4.8-8.0 7917787532) SP GRAVITY (test code = 1.003-1.030 1532663083) GLU U QUAL (test code = Normal Normal 6831309097) BLOOD (test code = Negative Negative 1267294740) KETONES (test code = Negative Negative 2998805057) PROTEIN (test code = Negative Negative 2887-8) UROBILIN (test code = Normal Normal 7947421378) BILIRUBIN (test code = Negative Negative 9368806339) NITRITE (test code = Negative Negative 2595151401) LEUK MURRAY (test code = 25/uL Negative A 4201981276) RBC/HPF (test code = See_Comment [Autom ated message] 2865910120) The system [employer] generated this result transmitted ref erence range: 0 - 3 HP F. The reference range was not used to int erpret this result as normal/abnormal . WBC/HPF (test code = See_Comment [Autom ated message] 2142413757) The system [employer] generated this result transmitted ref erence range: 0 - 5 HP F. The reference range was not used to int erpret this result as normal/abnormal . BACTERIA (test code = Few Negative A 3836807928) MUCOUS (test code = Slight Negative LPF A 5507641364) SQ EPITH (test code = HPF 8738026489) Lab Interpretation (test Abnormal code = 93407-4) [facility] AtlantaCB with Qgfvnsmlsvbn8125-79-49 20:27:23 Test Item Value Reference Range Interpretation Comments WBC (test code = See_Comment [Automated 5290-2) message] The sy stem which generated this [...] RDW-SD (test code = 49.6 fL 39.0-49.9 91344-0) RDW-CV (test code = 14.1 % 12.0-15.5 788-0) PLT (test code = See_Comment [Automated 777-3) message] The sy stem which generated this result transmitted reference range : 166 - 358 10*3/ ?L. The reference r miky was not used to interpret this result as normal/abnormal . MPV (test code = 9.7 fL 9.5-12.9 61256-6) NRBC/100 WBC (test See_Comment [Automat ed code = 6098951793) message] The system which generated this result transmitted reference range : 0.0 - 10.0 /100 WBCs. The refer ence range was not u sed to interpret th is result as normal/abnormal . NRBC x10^3 (test code <0.01 See_Comment [Auto mated = 7144252966) message] The s ystem which generated this result transmitted reference range : 10*3/?L. The reference range was not used to interpret this result as normal/abnormal . GRAN MAT (NEUT) % 49.6 % (test code = 770-8) IMM GRAN % (test code 0.30 % = 1010635924) LYMPH % (test code = 38.7 % 736-9) MONO % (test code = 10.4 % 5905-5) EOS % (test code = 0.8 % 713-8) BASO % (test code = 0.2 % 706-2) GRAN MAT x10^3(ANC) 3.26 10*3/uL 1.88-7.09 (test code = 2310593030) IMM GRAN x10^3 (test <0.03 0.00-0.06 code = 7266521040) LYMPH x10^3 (test code 2.54 10*3/uL 1.32-3.29 = 731-0) MONO x10^3 (test code 0.68 10*3/uL 0.33-0.92 = 742-7) EOS x10^3 (test code = 0.05 10*3/uL 0.03-0.39 711-2) BASO x10^3 (test code <0.03 0.01-0.07 = 704-7) Lab Interpretation Abnormal (test code = 76766-1) [facility] [id number] 20:24:41 Test Item Value Reference Range Interpretation Comments LACTIC ACID (test code = 1.17 mmol/L 0.50-2.20 0393957740) Lab Interpretation (test code = Normal 07703-6) [facility] 00:29:10 Test Item Value Reference Range Interpretation Comments APPEARANCE (test code = Clear Clear 4758603390) COLOR (test code = Yellow Yellow 0720068253) PH (test code = 4.8-8.0 0932231776) SP GRAVITY (test code = 1.003-1.030 1142404675) GLU U QUAL (test code = Normal Normal 5486861729) BLOOD (test code = Negative Negative 9497889903) KETONES (test code = Negative Negative 1585540024) PROTEIN (test code = Negative Negative 2887-8) UROBILIN (test code = Normal Normal 1129765005) BILIRUBIN (test code = Negative Negative 5629030766) NITRITE (test code = Negative Negative 9212183673) LEUK MURRAY (test code = 25/uL Negative A 3756916916) RBC/HPF (test code = See_Comment [Autom ated message] 6015091273) The system [employer] generated this result transmitted ref erence range: 0 - 3 HP F. The reference range was not used to int erpret this result as normal/abnormal . WBC/HPF (test code = See_Comment H [Autom ated message] 8218233308) The system [employer] generated this result transmitted ref erence range: 0 - 5 HP F. The reference range was not used to int erpret this result as normal/abnormal . BACTERIA (test code = Few Negative A 0820467924) MUCOUS (test code = Slight Negative LPF A 5552329130) SQ EPITH (test code = HPF 0975694249) Lab Interpretation (test Abnormal code = 12184-1) [facility] Metabolic Panel (NA, K, CL, CO2, GLUCOSE, BUN, CREATININE, CA)2020-05-26 23:56:22 Test Item Value Reference Range Interpretation Comments NA (test code = 140 mmol/L 135-145 1549193106) K (test code = 3.8 mmol/L 3.5-5.0 4184414270) CL (test code = 104 mmol/L 98-108 4305273636) CO2 TOTAL (test code 27 mmol/L 23-31 = 7090338832) AGAP (test code = 2-16 2958792981) BUN (test code = 15 mg/dL 7-23 6804259785) GLUCOSE (test code = 95 mg/dL 70-110 5483545813) CREATININE (test code 0.60 mg/dL 0.50-1.04 = 3928206180) CALCIUM (test code = 9.0 mg/dL 8.6-10.6 7160142397) eGFR (test code = mL/min/1.73m2 2027867329) ANTHONY (test code = ANTHONY) Association of [...] or urine or abnormalities in imaging tests). [facility] (ALB, T.PRO, BILI T, BU/BC, ALT, AST, ALK PHOS)2020-05-26 23:55:42 Test Item Value Reference Range Interpretation Comments TOTAL BILI (test code = 8921755245) 0.3 mg/dL 0.1-1.1 BILI UNCON (test code = 7948227175) 0.2 mg/dL 0.1-1.1 BILI CONJ (test code = 6024133608) 0.0 mg/dL 0.0-0.3 T PROTEIN (test code = 9811826111) 7.5 g/dL 6.3-8.2 ALBUMIN (test code = 2120898885) 4.5 g/dL 3.5-5.0 ALK PHOS (test code = 6507737338) 165 U/L 34-122 H ALTv (test code = 1742-6) 110 U/L 5-35 H AST(SGOT) (test code = 8425001929) 66 U/L 13-40 H Lab Interpretation (test code = Abnormal 62625-5) [facility] with [id number] 23:42:55 Test Item Value Reference Range Interpretation Comments WBC (test code = See_Comment [Automated 8590-2) message] The sy stem which generated this [...] RDW-SD (test code = 48.4 fL 39.0-49.9 32342-6) RDW-CV (test code = 13.6 % 12.0-15.5 788-0) PLT (test code = See_Comment [Automated 777-3) message] The sy stem which generated this result transmitted reference range : 166 - 358 10*3/ ?L. The reference r miky was not used to interpret this result as normal/abnormal . MPV (test code = 9.8 fL 9.5-12.9 38348-3) NRBC/100 WBC (test See_Comment [Automat ed code = 2098517758) message] The system which generated this result transmitted reference range : 0.0 - 10.0 /100 WBCs. The refer ence range was not u sed to interpret th is result as normal/abnormal . NRBC x10^3 (test code <0.01 See_Comment [Auto mated = 8499648320) message] The s ystem which generated this result transmitted reference range : 10*3/?L. The reference range was not used to interpret this result as normal/abnormal . GRAN MAT (NEUT) % 61.8 % (test code = 770-8) IMM GRAN % (test code 0.70 % = 1810703776) LYMPH % (test code = 27.3 % 736-9) MONO % (test code = 9.0 % 5905-5) EOS % (test code = 1.0 % 713-8) BASO % (test code = 0.2 % 706-2) GRAN MAT x10^3(ANC) 5.01 10*3/uL 1.88-7.09 (test code = 9813117338) IMM GRAN x10^3 (test 0.06 10*3/uL 0.00-0.06 code = 1103328304) LYMPH x10^3 (test code 2.22 10*3/uL 1.32-3.29 = 731-0) MONO x10^3 (test code 0.73 10*3/uL 0.33-0.92 = 742-7) EOS x10^3 (test code = 0.08 10*3/uL 0.03-0.39 711-2) BASO x10^3 (test code <0.03 0.01-0.07 = 704-7) Lab Interpretation Abnormal (test code = 87894-6) [facility] 19:25:57 Test Item Value Reference Range Interpretation Comments APPEARANCE (test code = Clear Clear 5062712046) COLOR (test code = Yellow Yellow 5034576017) PH (test code = 4.8-8.0 4198708866) SP GRAVITY (test code = >1.060 1.003-1.030 H 4903989627) GLU U QUAL (test code = Normal Normal 7496521270) BLOOD (test code = Negative Negative 3565519503) KETONES (test code = Negative Negative 5263041628) PROTEIN (test code = Negative Negative 2887-8) UROBILIN (test code = Normal Normal 0260662203) BILIRUBIN (test code = Negative Negative 0541558238) NITRITE (test code = Negative Negative 6754557094) LEUK MURRAY (test code = 25/uL Negative A 0434250754) RBC/HPF (test code = See_Comment [Autom ated message] 1189732561) The system [employer] generated this result transmitted ref erence range: 0 - 3 HP F. The reference range was not used to int erpret this result as normal/abnormal . WBC/HPF (test code = See_Comment [Autom ated message] 2201618252) The system [employer] generated this result transmitted ref erence range: 0 - 5 HP F. The reference range was not used to int erpret this result as normal/abnormal . BACTERIA (test code = Few Negative A 3097854831) MUCOUS (test code = Slight Negative LPF A 6560054656) SQ EPITH (test code = HPF 2857840796) Lab Interpretation (test Abnormal code = 05384-5) [facility] PEL[facility] W [id number] 17:38:50CT Abdomen and Pelvis with intravenous contrast. [...] eachmeasuring 2 to 3 mm in size. [facility] (ALB, T.PRO, BILI T, BU/BC, ALT, AST, ALK PHOS)2020-05-13 17:24:50 Test Item Value Reference Range Interpretation Comments TOTAL BILI (test code = 7121363143) 0.5 mg/dL 0.1-1.1 BILI UNCON (test code = 0476042960) 0.2 mg/dL 0.1-1.1 BILI CONJ (test code = 0641713899) 0.0 mg/dL 0.0-0.3 T PROTEIN (test code = 1156599090) 8.0 g/dL 6.3-8.2 ALBUMIN (test code = 0281142462) 4.7 g/dL 3.5-5.0 ALK PHOS (test code = 9342422012) 142 U/L 34-122 H ALTv (test code = 1742-6) 29 U/L 5-35 AST(SGOT) (test code = 8326203777) 41 U/L 13-40 H Lab Interpretation (test code = Abnormal 72737-7) [facility] (NA, K, CL, CO2, GLUCOSE, BUN, CREATININE, CA)2020-05-13 17:24:49 Test Item Value Reference Range Interpretation Comments NA (test code = 139 mmol/L 135-145 4499394846) K (test code = 3.9 mmol/L 3.5-5.0 7176987206) CL (test code = 111 mmol/L 98-108 H 2820925700) CO2 TOTAL (test code = 19 mmol/L 23-31 L 9379023898) AGAP (test code = 2-16 4652888254) BUN (test code = 15 mg/dL 7-23 6323528678) GLUCOSE (test code = 123 mg/dL 70-110 H 4893954183) CREATININE (test code = 0.83 mg/dL 0.50-1.04 6777018623) CALCIUM (test code = 9.5 mg/dL 8.6-10.6 8643722365) eGFR (test code = mL/min/1.73m2 2187678462) ANTHONY (test code = ANTHONY) Association of [...] tests). Lab Interpretation Abnormal (test code = 83321-0) [facility] AtlantaLipase [id number] 17:24:49 Test Item Value Reference Range Interpretation Comments LIPASE (test code = 5852083853) 25 U/L 0-220 Lab Interpretation (test code = Normal 38990-6) [facility] with Mgjzluugobtz6781-95-80 17:06:22 Test Item Value Reference Range Interpretation [...] RDW-SD (test code = 46.4 fL 39.0-49.9 21030-5) RDW-CV (test code = 13.3 % 12.0-15.5 788-0) PLT (test code = See_Comment [Automated 777-3) message] The sy stem which generated this result transmitted reference range : 166 - 358 10*3/ ?L. The reference r miky was not used to interpret this result as normal/abnormal . MPV (test code = 10.4 fL 9.5-12.9 35426-0) NRBC/100 WBC (test See_Comment [Automat ed code = 1627895363) message] The system which generated this result transmitted reference range : 0.0 - 10.0 /100 WBCs. The refer ence range was not u sed to interpret th is result as normal/abnormal . NRBC x10^3 (test code <0.01 See_Comment [Auto mated = 3614389843) message] The s ystem which generated this result transmitted reference range : 10*3/?L. The reference range was not used to interpret this result as normal/abnormal . GRAN MAT (NEUT) % 69.6 % (test code = 770-8) IMM GRAN % (test code 0.40 % = 8361702675) LYMPH % (test code = 22.4 % 736-9) MONO % (test code = 7.1 % 5905-5) EOS % (test code = 0.4 % 713-8) BASO % (test code = 0.1 % 706-2) GRAN MAT x10^3(ANC) 5.65 10*3/uL 1.88-7.09 (test code = 7649973281) IMM GRAN x10^3 (test 0.03 10*3/uL 0.00-0.06 code = 9894453791) LYMPH x10^3 (test code 1.82 10*3/uL 1.32-3.29 = 731-0) MONO x10^3 (test code 0.58 10*3/uL 0.33-0.92 = 742-7) EOS x10^3 (test code = 0.03 10*3/uL 0.03-0.39 711-2) BASO x10^3 (test code <0.03 0.01-0.07 = 704-7) Lab Interpretation Abnormal (test code = 07719-4) [facility] ABDOMEN [id number] 18:12:20 Status post cholecystectomy. Mild extra hepatic [...] can been expected finding inthe post cholecystectomy setting.[facility] [place]XR CHEST 1 VW 2019-12-08 18:03:08Findings and Impression: Clear lungs. No pleural effusion or pneumothorax.Heart size is normal. No acute osseous abnormality. PORTABLE CHEST RADIOGRAPH History: RUQ pain Comparison: 12/25/2018 TECHNIQUE: AP view of the chest. Dcmb, Radiant Results Inft User - 12/08/2019 1:04 PM CDTPORTABLE CHEST RADIOGRAPHHistory: RUQ pain Comparison: 12/25/2018TECHNIQUE: AP view of the chest.IMPRESSIONFindings and Impression: Clear lungs. No pleural effusion or pneumothorax.Heart size is normal. No acute osseousabnormality.[facility] AtlantaCOMP. METABOLIC PANEL (37897)2019-12-08 17:36:00 Test Item Value Reference Range Interpretation Comments NA (test code = 139 mmol/L 135-145 9506402813) K (test code = 4.2 mmol/L 3.5-5 4703487157) CL (test code = 102 mmol/L 98-108 7072768827) CO2 TOTAL (test code = 27 mmol/L 23-31 3635256195) AGAP (test code = 2-16 3962414198) BUN (test code = 20 mg/dL 7-23 0457332942) GLUCOSE (test code = 105 mg/dL 70-110 9319205017) CREATININE (test code = 1.01 mg/dL 0.5-1.04 0618092683) TOTAL BILI (test code = 0.6 mg/dL 0.1-1.9 4728613859) CALCIUM (test code = 9.9 mg/dL 8.6-10.6 3805306958) T PROTEIN (test code = 8.5 g/dL 6.3-8.2 H 2456148412) ALBUMIN (test code = 4.5 g/dL 3.5-5 0165883961) ALK PHOS (test code = 118 U/L 34-122 3626706958) ALTv (test code = 32 U/L 5-35 1742-6) AST(SGOT) (test code = 39 U/L 13-40 5415431336) eGFR Calculation mL/min/1.73m2 (Non-) (test code = 4054020271) eGFR Calculation mL/min/1.73m2 () (test code = 9347955173) ANTHONY (test code = ANTHONY) Association of [...] tests). Lab Interpretation Abnormal (test code = 71634-8) [facility]IN[facility]2020-10-26 17:20:00 Test Item Value Reference Range Interpretation Comments APPEARANCE (test code = Hazy Clear A 3324221132) COLOR (test code = Yellow Yellow 6047416647) PH (test code = 4.8-8.0 8559434025) SP GRAVITY (test code = 1.003-1.030 H 1819519927) GLU U QUAL (test code = Normal Normal 9044360218) BLOOD (test code = Negative Negative 3604293363) KETONES (test code = Negative Negative 9338871385) PROTEIN (test code = 30 mg/dL Negative A 2887-8) UROBILIN (test code = Normal Normal 2630717414) BILIRUBIN (test code = Negative Negative 9808811845) NITRITE (test code = Negative Negative 8722473700) LEUK MURRAY (test code = 75/uL Negative A 9229444864) RBC/HPF (test code = See_Comment [Autom ated message] 1411299434) The system [employer] generated this result transmitted ref erence range: 0 - 3 HP F. The reference range was not used to int erpret this result as normal/abnormal . WBC/HPF (test code = See_Comment [Autom ated message] 6411898778) The system [employer] generated this result transmitted ref erence range: 0 - 5 HP F. The reference range was not used to int erpret this result as normal/abnormal . BACTERIA (test code = Negative Negative 8281961699) MUCOUS (test code = Slight Negative LPF A 5587610784) SQ EPITH (test code = HPF 4216103381) HYAL CAST (test code = See_Comment [Aut omated message] 8638893923) The system [employer] generated this result transmitted ref erence range: <=2 LPF. The reference range was not used to int erpret this result as normal/abnormal . Lab Interpretation (test Abnormal code = 13621-2) [facility] WITH [id number] 17:05:00 Test Item Value Reference Range Interpretation [...] RDW-SD (test code = 43.5 fL 39-49.9 87016-0) RDW-CV (test code = 11.9 % 12-15.5 L 788-0) PLT (test code = See_Comment [Automated 777-3) message] The sy stem which generated this result transmitted reference range : 166 - 358 10*3/ ?L. The reference r miky was not used to interpret this result as normal/abnormal . MPV (test code = 10.9 fL 9.5-12.9 74793-0) NRBC/100 WBC (test See_Comment [Automat ed code = 2917199323) message] The system which generated this result transmitted reference range : 0.0 - 10.0 /100 WBCs. The refer ence range was not u sed to interpret th is result as normal/abnormal . NRBC x10^3 (test code <0.01 See_Comment [Auto mated = 5839206477) message] The s ystem which generated this result transmitted reference range : 10*3/?L. The reference range was not used to interpret this result as normal/abnormal . GRAN MAT (NEUT) % 64.8 % (test code = 770-8) IMM GRAN % (test code 0.40 % = 2058851923) LYMPH % (test code = 27.0 % 736-9) MONO % (test code = 6.5 % 5905-5) EOS % (test code = 0.9 % 713-8) BASO % (test code = 0.4 % 706-2) GRAN MAT x10^3(ANC) 4.35 10*3/uL 1.88-7.09 (test code = 8537211130) IMM GRAN x10^3 (test 0.03 10*3/uL 0-0.06 code = 8255952844) LYMPH x10^3 (test code 1.82 10*3/uL 1.32-3.29 = 731-0) MONO x10^3 (test code 0.44 10*3/uL 0.33-0.92 = 742-7) EOS x10^3 (test code = 0.06 10*3/uL 0.03-0.39 711-2) BASO x10^3 (test code 0.03 10*3/uL 0.01-0.07 = 704-7) Lab Interpretation Abnormal (test code = 18292-1) [facility] PELVIS WO [id number] 16:59:351. ?Nonobstructive left nephrolithiasis. 2. ?No radiographic [...] PELVISLiver: Hepatic dome is not fully within kling-qy-fxhb. No focal he paticlesions identified within limits [...] PELVISLiver: Hepatic dome is not fully within kjbaa-kw-vjyk. No focal hepaticlesions identified within limits of [...] in the left lower lobe, thoughtto be unchanged.[facility] POCT [id number] 16:12:00 Test Item Value Reference Range Interpretation Comments POCT PREG (test code = 1605) negative On board controls acceptable with present C Line (test code = 3574) POCT PREG LOT # (test code = 3575) [id number] POCT PREG TEST DATE (test 05/12/2021 code = 3576) Lab Interpretation (test code = Normal 58001-9) [facility] URINALYSIS, [id number] 15:17:00 Test Item Value Reference Range Interpretation [...] 3267) Lab Interpretation (test code Abnormal = 08378-9) [facility]PO[facility] URINALYSIS, [id number] 15:17:00 Test Item Value Reference Range Interpretation [...] 3267) Lab Interpretation (test code Abnormal = 27368-3) [facility] AtlantaMR, BRAIN, [id number] 19:53:00With seizure protocolThin coronal cuts especially around [...] MDReport Verified Date/Time: 10/25/2018 19:53:41 Reading Location: [facility] C013V Neuro Reading Room EEG AWAKE AND [id number] 19:37:00For STAT EEG- after 5 PM weekdays, weekends and holidays, page the on-call EEG TechReason for exam:-& gt;altered mental statusDATE OF EXAMINATION: 10/25/18[facility] [place]: [id number] 10: R56.9CPT CODE: [id number] SUMMARY:This is a digital EEG recorded with 32 input channels on a [employer] system and then reviewed with bipolar and [...] seizure for the symptom(s) of interest. HEMOGLOBIN [id number] 14:02:00 Test Item Value Reference Range Interpretation Comments HEMOGLOBIN A1C (BEAKER) (test code = 5.6 % 4.3-6.1 368) TSH/FREE T4 IF [id number] 06:11:00 Test Item Value Reference Range Interpretation Comments THYROID STIMULATING HORMONE 3.63 uIU/mL 0.35-4.94 (BEAKER) (test code = 772) VITAMIN B12 AND [id number] 06:11:00 Test Item Value Reference Range Interpretation Comments VITAMIN B12 (BEAKER) (test code = 272 pg/mL 213-816 774) FOLATE (BEAKER) (test code = 362) 9.4 ng/mL >=7.0 [id number] 05:58:00 Test Item Value Reference Range Interpretation Comments PHOSPHORUS (BEAKER) (test code = 3.6 mg/dL 2.3-4.7 604) [id number] 05:58:00 Test Item Value Reference Range Interpretation Comments MAGNESIUM (BEAKER) (test code = 2.1 mg/dL 1.6-2.6 627) BASIC METABOLIC [id number] 05:58:00 Test Item Value Reference Range Interpretation [...] NOT APPLICABLE FOR DIALYSIS PATIEN TS. LIPID [id number] 05:58:00 Test Item Value Reference Range Interpretation [...] 130-159 High 160-189 Very High >=190HEPATIC FUNCTION [id number] 05:58:00 Test Item Value Reference Range Interpretation [...] (test code = 413) CT, BRAIN, WITHOUT [id number] 00:33:00FINAL REPORT EXAM: CT, BRAIN, WITHOUT CONTRAST [...] Salazar Verified Date/Time: 10/25/2018 00:33:20 Reading Location: [facility] C013V Neuro Reading Room POCT-GLUCOSE [id number] 23:26:00 Test Item Value Reference Range Interpretation Comments POC-GLUCOSE METER 77 mg/dL 70-110 TESTED AT [facility] 67 (BEAKER) (test code = [facility] [address] 1538) SCREEN, [id number] 18:06:00 Test Item Value Reference Range Interpretation Comments TEST URINE (BEAKER) (test Negative code = 583) RAPID DRUG SCREEN, [id number] 16:54:00 Test Item Value Reference Range Interpretation [...] situations. Chain of custody not maintained. Some jcgg-xdq-buzauzy medications, as well as adulterants, may cause inaccurate results. Clinical correlation should be applied. A more comprehensivedrug screen or confirmation of a detected drug may be performed upon request.URINALYSIS W/ REFLEX URINE [id number] 15:45:00 Test Item Value Reference Range Interpretation [...] code = 1521) SOURCE(BEAKER) (test code = 8590) B-TYPE NATRIURETIC FACTOR (BNP)2018-10-24 15:41:00 Test Item Value Reference Range Interpretation Comments B-TYPE NATRIURETIC PEPTIDE (BEAKER) < pg/mL 0-100 (test code = 700) BASIC METABOLIC [id number] 15:41:00 Test Item Value Reference Range Interpretation [...] DATA TO CALCULA TE ESTIMATED GFR. TROPONIN [id number] 15:34:00 Test Item Value Reference Range Interpretation [...] acute neurological disease, and persistent tachyarrhythmia.HEPATIC FUNCTION [id number] 15:32:00 Test Item Value Reference Range Interpretation [...] (test code = 51 U/L 6-55 347) [id number] 15:27:00 Test Item Value Reference Range Interpretation Comments ETHANOL (BEAKER) (test code = 400) < mg/dL <=10 POCT-GLUCOSE [id number] 15:15:00 Test Item Value Reference Range Interpretation Comments POC-GLUCOSE METER 82 mg/dL 70-110 TESTED AT [facility] 6720 (BEAKER) (test code = [place] [address] 1538) RAD, CHEST, 1 VIEW, NON [id number] 15:13:00Reason for exam:->sobShould this be performed at the bedside?->YesFINAL REPORT INDICATION: sob COMPARISON: None TECHNIQUE: Single frontal view of the chest. FINDINGS: Lungs and pleura: Clear lungs. No effusion.Heart and mediastinum: Normal heart size. Unremarkable mediastinal contours.Osseous structures: No acute abnormality.Other: None. IMPRESSION: No acute intrathoracic abnormality. Signed: JR Escobar Robert MDReport Verified Date/Time: 10/24/2018 15:13:38 Reading Location: [facility] Radiology Reading Room CBC W/PLT COUNT & AUTO [id number] 15:06:00 Test Item Value Reference Range Interpretation [...] code = 2801) CT, SPINE, CERVICAL, WO [id number] 15:06:00Reason for exam:->r/o c- spine injuryIs the [...] Selby Verified Date/Time: 10/24/2018 15:06:41 Reading Location: [place] [id number] Neuro Reading Room , BRAIN/STROKE [id number] 14:38:00Reason for exam:->r/o cvaIs the patient ?->UnknownWhat [...] Shirley Verified Date/Time: 10/24/2018 14:38:49 Reading Location: [facility] C013W Consult Reading Room "
[2021-05-27] MEDS ORDERED: NA CHLORIDE 0.9% 1,000 ML ONE (10:17)
--- NOTE | 2021-05-27 10:29 | RAD REPORT ---
EXAM DESCRIPTION: CTStone Protocol - 05/27/2021 10:18 am CLINICAL HISTORY: abdominal pain COMPARISON: Abdomen Pelvis W Contrast dated 05/22/2021; Abdomen Pelvis W Contrast dated 04/27/2021 ; Abdomen Pelvis Wo Contrast dated 04/26/2021; Abdomen Pelvis W Contrast dated 03/27/2018 TECHNIQUE: CT of the abdomen and pelvis was performed. All CT scans are performed using dose optimization technique as appropriate and may include automated exposure control or mA/KV adjustment according to patient size. FINDINGS: Lower chest: Known pulmonary nodules are similar. Liver: No acute abnormality or suspicious lesions. Biliary: Cholecystectomy Stomach: No significant focal abnormality. Duodenum: No significant focal abnormality. Pancreas: No significant abnormality. Spleen: No significant abnormality. Adrenal: No suspicious lesions. Kidney/ureter: No hydronephrosis. Bilateral nonobstructive nephrolithiasis. No ureteral calculi are i dentified. Retroperitoneum: No retroperitoneal adenopathy. Vascular: No aneurysm. Bowel: No significant focal abnormality. Normal appendix . Peritoneum: No ascites or free air. Bladder: Grossly unremarkable. Reproductive: No adnexal masses. Bones: No acute fracture. Other: n/a IMPRESSION: Nonobstructive bilateral nephrolithiasis. Normal appendix. No acute findings within the abdomen or pelvis.
[2021-05-27 10:39] LABS: Absolute Lymphocytes (CBC) 1.4 K/uL (0.7-4.9); Hematocrit 31.7 % (36.0-45.0); Lymphocytes % 26.3 % (15.3-44.8); MPV 7.5 fL (7.6-11.3); RBC Red Blood Cell Count 3.67 M/uL (3.86-4.86)
[2021-05-27] MEDS ORDERED: PROMETHAZINE INJ 25 MG/ML AMP ONE (10:48)
[2021-05-27] MEDS ORDERED: HYDROMORPHONE HCL 1 MG/ML INJ ONE (10:48)
[2021-05-27 10:58] LABS: Albumin 4.1 g/dL (3.4-5.0); Bilirubin Total 0.3 mg/dL (0.2-1.0); Potassium 3.5 mmol/L (3.5-5.1)
--- NOTE | 2021-05-27 11:06 | ER ---
Nurse's Notes [facility] Name: Mckenna Avila Age: 46 yrs Sex: Female : 1975 Arrival Date: 05/27/2021 Time: 09:45 Bed 6 Private MD: Diagnosis: Abdominal pain, Generalized;Nausea with vomiting, unspecified Presentation: 05/27 09:53 Chief complaint: Patient states: bilateral flank pain, N/V abdominal pain. Coronavirus storey screen: Vaccine status: Patient reports being unvaccinated. Ebola Screen: Patient denies travel to an Ebola-affected area in the 21 days before illness onset. Initial Sepsis Screen: Does the patient meet any 2 criteria? HR > 90 bpm. No. Patient's initial sepsis screen is negative. Does the patient have a suspected source of infection? No. Patient's initial sepsis screen is negative. Risk Assessment: Do you want to hurt yourself or someone else? Patient reports no desire to harm self or others. Onset of symptoms was May 22, 2021. 09:53 Method Of Arrival: Ambulatory storey 09:53 Acuity: KEIKO 3 storey Triage Assessment: 09:56 General: Appears in no apparent distress. Behavior is calm, cooperative. Pain: storey Complains of pain in back-bilateral flank. GI: Reports nausea, Pain is 7 out of 10 on a pain scale. vomiting. 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 - Social history:: Smoking status: Patient denies any tobacco usage or history of. Screenin:57 Abuse screen: Denies threats or abuse. Denies injuries from another. Nutritional storey screening: No deficits noted. Tuberculosis screening: No symptoms or risk factors identified. Fall Risk None identified. Assessment: 09:58 GI: Bowel sounds present X 4 quads. Abd is soft Abd is non tender. storey Vital Signs: 09:53 BP 146 / 110; Pulse 92; Resp 18; Temp 98.4; Pulse Ox 100% on R/A; Weight 72.57 kg; storey Height 5 ft. 7 in. (170.18 cm); 09:53 Body Mass Index 25.06 (72.57 kg, 170.18 cm) storey Juan Coma Score: 10:07 Eye Response: spontaneous(4). Verbal Response: oriented(5). Motor Response: obeys [facility] commands(6). Total: 15. ED Course: 09:45 Patient arrived in ED. as 09:47 Angy Adrian FNP [facility] 09:47 Willie Jay DO is Attending Physician. jh7 09:53 Alisa Warner, RN is Primary Nurse. storey 09:56 Triage completed. storey 09:56 Arm band placed on. storey 09:57 Patient has correct armband on for positive identification. Bed in low position. storey 09:57 No provider procedures requiring assistance completed. storey 10:20 Stone Protocol In Process Unspecified. EDVT 11:05 Fercho Adams MD is Referral Physician. 7 11:47 IV discontinued, intact, Pressure dressing applied. storey Administered Medications: 10:31 Drug: NS 0.9% 1000 ml Route: IV; Rate: 1000 ml; Site: right antecubital; storey 10:47 Drug: Dilaudid (HYDROmorphone) 1 mg Route: IVP; Site: right antecubital; storey 10:48 Follow up: Response: No adverse reaction storey 10:48 Drug: Promethazine 12.5 mg Route: IVP; Site: right antecubital; storey 10:48 Follow up: Response: No adverse reaction storey Outcome: 11:06 Discharge ordered by . 7 11:47 Discharged to home storey 11:47 Condition: good 11:47 Discharge instructions given to patient. 11:48 Patient left the ED. storey Signatures: Dispatcher [employer] EDMS Bethany Peres as Alisa Warner RN RN storey Angy Larios FNP FNP [facility]
--- NOTE | 2021-05-27 11:07 | EDPHYS ---
Physician Documentation [facility] Name: Mckenna Avila Age: 46 yrs Sex: Female : 1975 Arrival Date: 05/27/2021 Time: 09:45 Bed 6 Private MD: ED Physician Willie Jay HPI: 05/27 10:07 This 46 yrs old Female presents to ER via Ambulatory with complaints of Abdominal Pain, jh7 Back Pain, Nausea/Vomiting. 10:07 The patient presents with abdominal pain in the epigastric area, in the right upper jh7 quadrant. Onset: The symptoms/episode began/occurred 5 day(s) ago. Associated signs and symptoms: Pertinent positives: nausea and vomiting, back pain. 46-year-old female presents for ongoing right upper quadrant and epigastric pain, bilateral flank pain, and nausea vomiting progressing since Sunday. She reports that initially the Phenergan and Zofran were able to take the edge off, but that she has not been able to hold anything down for the past couple days. She has a history of Crohn's disease and kidney stones.. 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 - Social history:: Smoking status: Patient denies any tobacco usage or history of. ROS: 10:07 Cardiovascular: Negative for chest pain, palpitations, and edema, Respiratory: Negative jh7 for shortness of breath, cough, wheezing, and pleuritic chest pain, Back: Negative for injury and pain, MS/Extremity: Negative for injury and deformity, Skin: Negative for injury, rash, and discoloration. 10:07 Constitutional: Positive for chills, fever, malaise, poor PO intake. 10:07 Abdomen/GI: Positive for abdominal pain, nausea and vomiting. 10:07 : Positive for flank pain. 10:07 All other systems are negative. Exam: 10:07 Cardiovascular: Regular rate and rhythm with a normal S1 and S2. No gallops, murmurs, jh7 or rubs. Normal PMI, no JVD. No pulse deficits. Respiratory: Lungs have equal breath sounds bilaterally, clear to auscultation and percussion. No rales, rhonchi or wheezes noted. No increased work of breathing, no retractions or nasal flaring. 10:07 Constitutional: The patient appears alert, awake, restless, uncomfortable. 10:07 Abdomen/GI: Inspection: abdomen appears normal, Bowel sounds: normal, Palpation: moderate abdominal tenderness, in the epigastric area, posterior aspect of right lateral abdomen and right upper quadrant. 10:07 : CVA tenderness, noted bilaterally. 10:07 Skin: Appearance: Color: pale. Vital Signs: 09:53 BP 146 / 110; Pulse 92; Resp 18; Temp 98.4; Pulse Ox 100% on R/A; Weight 72.57 kg; storey Height 5 ft. 7 in. (170.18 cm); 09:53 Body Mass Index 25.06 (72.57 kg, 170.18 cm) storey [place] Coma Score: 10:07 Eye Response: spontaneous(4). Verbal Response: oriented(5). Motor Response: obeys jh7 commands(6). Total: 15. MDM: 09:47 Patient medically screened. jh7 11:02 Data reviewed: vital signs, nurses notes, lab test result(s), radiologic studies, CT jh7 scan. Data interpreted: Pulse oximetry: on room air is 100 %. Interpretation: normal. Counseling: I had a detailed discussion with the patient and/or guardian regarding: the historical points, exam findings, and any diagnostic results supporting the discharge/admit diagnosis, lab results, radiology results, the need for outpatient follow up, a foxpro developer, to return to the emergency department if symptoms worsen or persist or if there are any questions or concerns that arise at home. Response to treatment: the patient's symptoms have mildly improved after treatment. ED course: The patient significantly improved after pain medicine was administered. No signs of acute abdomen were present. Abdomen soft and nonrigid. The patient was instructed to follow-up with her GI, and was educated on precautions on when to return to the ER. The patient remained hemodynamically stable and her labs and CT scan were normal.. 05/27 10:01 Order name: CBC with Automated Diff; Complete Time: 10:42 EDMS 05/27 10:01 Order name: Comprehensive Metabolic Panel; Complete Time: 11:02 EDKS 05/27 10:01 Order name: Stone Protocol; Complete Time: 10:33 EDKS 05/27 10:01 Order name: Lipase; Complete Time: 11:02 EDKS 05/27 10:01 Order name: Urine Dipstick-Ancillary (obtain specimen) [facility] 05/27 10:01 Order name: Urine Test (obtain specimen) [facility] Administered Medications: 10:31 Drug: NS 0.9% 1000 ml Route: IV; Rate: 1000 ml; Site: right antecubital; storey 10:47 Drug: Dilaudid (HYDROmorphone) 1 mg Route: IVP; Site: right antecubital; storey 10:48 Follow up: Response: No adverse reaction storey 10:48 Drug: Promethazine 12.5 mg Route: IVP; Site: right antecubital; storey 10:48 Follow up: Response: No adverse reaction storey Disposition: 18:25 Co-signature as Attending Physician, Willie RAMÍREZ was immediately available on-site ms3 in the Emergency Department for consultation in the care of the patient.. Disposition Summary: 05/27/21 11:06 Discharge Ordered Location: Home [facility] Problem: an ongoing problem 7 Symptoms: have improved jh Condition: Stable [facility] Diagnosis - Abdominal pain, Generalized jh7 - Nausea with vomiting, unspecified [facility] Followup: [facility] - With: Fercho Adams MD - When: 2 - 3 days - Reason: If symptoms return, Recheck today's complaints Discharge Instructions: - Discharge Summary Sheet jh7 - Abdominal Pain, Adult jh7 - Nausea and Vomiting, Adult 7 Forms: - Medication Reconciliation Form [facility] - Thank You Letter 7 - Antibiotic Education 7 - Prescription Opioid Use [facility] Signatures: Dispatcher [employer] [facility] Willie Jay DO DO ms3 Alisa Warner RN RN ha Kleinhenz, Jennifer, FNP FNP [facility] Corrections: (The following items were deleted from the chart) 19:06 10:07 Cardiovascular: Negative for chest pain, palpitations, and edema, Respiratory: [facility] Negative for shortness of breath, cough, wheezing, and pleuritic chest pain, Skin: Negative for injury, rash, and discoloration, 7
[2021-05-27] MEDS ORDERED: NA CHLORIDE 0.9% 1,000 ML IV ONE (12:00)
[2021-05-27 17:03] VITALS: BP 146/110; TEMP 98.4; O2SAT 100
== END 2021-05-27 11:48 | disposition home or self-care (01) ==
LOC: ER 09:43
DX: R10.84 Generalized abdominal pain (principal); R11.2 Nausea with vomiting, unspecified; Z88.1 Allergy status to other antibiotic agents; Z88.3 Allergy status to other anti-infective agents
CPT/HCPCS: 85025; 36415; 83690; 80053; 76377; 74176; 96375; 96374; 99283; J2550; J1170; J7030

== ENCOUNTER 2021-08-30 06:57 | Emergency (ER) | payer BC ==
[2021-08-30] MEDS ORDERED: MORPHINE 4 MG/ML SYR ONE ×2 (08:35→09:09)
[2021-08-30] MEDS ORDERED: ONDANSETRON 4 MG/2 ML VIAL ONE ×2 (08:37→09:09)
[2021-08-30 08:38] LABS: Hematocrit 31.8 % (36.0-45.0); Lymphocytes % 24.5 % (15.3-44.8); MCV 88.5 fL (80-100); MPV 7.7 fL (7.6-11.3)
[2021-08-30 08:43] LABS: Albumin 4.6 g/dL (3.4-5.0); Bilirubin Total 0.3 mg/dL (0.2-1.0); Potassium 3.7 mmol/L (3.5-5.1); Protein, Total 8.7 g/dL (6.4-8.2)
[2021-08-30] MEDS ORDERED: NA CHLORIDE 0.9% 1,000 ML ONE (09:09)
--- NOTE | 2021-08-30 09:23 | RAD REPORT ---
EXAM DESCRIPTION: CT - Abdomen Pelvis W Contrast - 08/30/2021 9:08 am CLINICAL HISTORY: Abdominal pain COMPARISON: May 2021 TECHNIQUE: Computed axial tomography of the abdomen pelvis was obtained. 100 cc Isovue-300 was admin istered intravenously. Oral contrast was not requested which limits evaluation of bowel and appendix All CT scans are performed using dose optimization technique as appropriate and may include automated exposure control or mA/KV adjustment according to patient size. FINDINGS: 9 millimeter left basilar lung nodule unchanged Cholecystectomy. Prominence of the common bile duct without significant change. Liver, spleen, pancreas and adrenals otherwise unremarkable Small bilateral renal calculi. No hydronephrosis. Small renal cysts. Normal appendix. Hysterectomy. No evidence of diverticulitis. No adnexal mass Mild anterior subluxation L5 on S1. Spondylolysis L5 IMPRESSION: Stable left lung nodule. Bilateral nonobstructing renal calculi Mild prominence of the common bile duct can be physiologic in this patient status post cholecystectom y. However, it should be correlated clinically and with appropriate lab values
[2021-08-30 11:57] LABS: Urine Blood Trace-intact (Negative); Urine Glucose Negative (Negative); Urine Protein Negative (Negative); Urine Specific Gravity 1.015 (1.005-1.030)
[2021-08-30] MEDS ORDERED: PROMETHAZINE INJ 25 MG/ML AMP ONE (11:59)
[2021-08-30] MEDS ORDERED: DICYCLOMINE HCL 20 MG/2 ML AMP IM ONE (12:00)
[2021-08-30] MEDS ORDERED: HYDROMORPHONE HCL 0.5 MG/0.5 ML INJ ONE (12:00)
--- NOTE | 2021-08-30 12:17 | ER ---
Nurse's Notes [facility] Name: Mckenna Avila Age: 46 yrs Sex: Female : 1975 Arrival Date: 08/30/2021 Time: 07:02 Bed 5 Private MD: Diagnosis: Abdominal pain, Generalized;Hematuria, unspecified;Anemia, unspecified Presentation: 08/30 07:19 Chief complaint: Patient states: N/V/D, abdominal pain, body aches x 1 week; hx of jl7 Chron's. Coronavirus screen: At this time, the client does not indicate any symptoms associated with coronavirus-19. Ebola Screen: No symptoms or risks identified at this time. Initial Sepsis Screen: Does the patient meet any 2 criteria? No. Patient's initial sepsis screen is negative. Does the patient have a suspected source of infection? No. Patient's initial sepsis screen is negative. Risk Assessment: Do you want to hurt yourself or someone else? Patient reports no desire to harm self or others. Onset of symptoms was August 23, 2021. 07:19 Method Of Arrival: Ambulatory [facility] 07:19 Acuity: KEIKO 3 jl7 Triage Assessment: 07:26 General: Appears in no apparent distress. uncomfortable, Behavior is calm, cooperative. jl7 Pain: Complains of pain in abdomen Pain currently is 9 out of 10 on a pain scale. GI: Reports diarrhea, nausea, vomiting. 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 - Social history:: Smoking status: Patient denies any tobacco usage or history of. Screenin:30 Abuse screen: Denies threats or abuse. Denies injuries from another. Nutritional bp screening: No deficits noted. Tuberculosis screening: No symptoms or risk factors identified. Fall Risk None identified. Assessment: 07:30 General: SEE TRIAGE NOTE. bp 09:50 Reassessment: No changes from previously documented assessment. bm7 09:50 Reassessment: Informed MD that pain still has abdominal pain not decreased by prior bm7 medication. . 11:03 Reassessment: No changes from previously documented assessment. Patient and/or family bp updated on plan of care and expected duration. Pain level reassessed. 12:00 GI: Abdomen is non-distended. bp 12:34 Reassessment: PT DC HOME AMBULATORY. bp Vital Signs: 07:19 BP 164 / 102; Pulse 88; Resp 17; Temp 98; Pulse Ox 98% on R/A; Weight 70.31 kg; Height jl7 5 ft. 7 in. (170.18 cm); Pain 9/10; 09:19 BP 148 / 90; Pulse 78; Resp 20; Pulse Ox 100% on R/A; Pain 8/10; bm7 09:52 BP 146 / 91; Pulse 76; Resp 18; Pulse Ox 99% on R/A; Pain 8/10; bm7 11:02 BP 136 / 91; Pulse 74; Resp 16; Pulse Ox 99% ; bp 12:34 BP 148 / 103; Pulse 70; Resp 16; Pulse Ox 98% ; bp 07:19 Body Mass Index 24.28 (70.31 kg, 170.18 cm) jl7 ED Course: 07:02 Patient arrived in ED. bp1 07:19 Willie Jay DO is Attending Physician. ms3 07:21 Triage completed. jl7 07:26 Arm band placed on right wrist. jl7 07:30 Patient has correct armband on for positive identification. Bed in low position. Call bp light in reach. Side rails up X2. 07:35 Tom Hernandez, RN is Primary Nurse. bp 09:[address] via stretcher. bm7 09:10 CT Abd/Pelvis - IV Contrast Only In Process Unspecified. EDMS 09:19 Client placed on continuous cardiac and pulse oximetry monitoring. NIBP monitoring bm7 applied. Door closed. Noise minimized. Lights dimmed. 12:15 Fercho Adams MD is Referral Physician. ms3 12:34 No provider procedures requiring assistance completed. IV discontinued, intact, bp bleeding controlled, No redness/swelling at site. Pressure dressing applied. Administered Medications: 08:40 Drug: morphine 4 mg Route: IVP; Infused Over: 4 mins; Site: right forearm; bp 11:59 Follow up: Response: No adverse reaction bp 08:40 Drug: Zofran (Ondansetron) 4 mg Route: IVP; Site: right forearm; bp 11:59 Follow up: Response: No adverse reaction bp 09:20 Drug: NS 0.9% 1000 ml Route: IV; Rate: 1 bolus; Site: right antecubital; bp 12:36 Follow up: IV Status: Completed infusion; IV Intake: 1000ml bp 09:20 Drug: morphine 4 mg Route: IVP; Infused Over: 4 mins; Site: right antecubital; bp 11:59 Follow up: Response: No adverse reaction bp 09:20 Drug: Zofran (Ondansetron) 4 mg Route: IVP; Site: right antecubital; bp 11:59 Follow up: Response: No adverse reaction bp 11:58 Drug: Dilaudid (HYDROmorphone) 0.5 mg Route: IVP; Site: right antecubital; bp 12:00 Follow up: Response: No adverse reaction; Pain is decreased bp 11:59 Drug: Phenergan (promethazine) 12.5 mg Route: IM; Site: right gluteus; bp 12:00 Follow up: Response: No adverse reaction bp 11:59 Drug: Bentyl (dicyclomine) 20 mg Route: IM; Site: right gluteus; bp 12:00 Follow up: Response: No adverse reaction bp Medication: 07:30 VIS not applicable for this client. bp Intake: 12:36 IV: 1000ml; Total: 1000ml. bp Outcome: 12:16 Discharge ordered by . ms3 12:34 Discharged to home ambulatory, with family. bp 12:34 Condition: stable 12:34 Discharge instructions given to patient, Instructed on discharge instructions, follow up and referral plans. medication usage, Demonstrated understanding of instructions, follow-up care, medications, Prescriptions given X 2. 12:41 Patient left the ED. storey Signatures: Dispatcher [employer] EDMS Ariela Stark RN RN jlTom Potter RN RN bp Willie Jay DO DO ms3 Sydnee Mariscal Brittany, RN RN bm7 Brit-StagerAlisa RN RN ha Corrections: (The following items were deleted from the chart) 12:35 12:34 Discharge instructions given to patient, Instructed on discharge instructions, bp follow up and referral plans. Demonstrated understanding of instructions, follow-up care, bp
--- NOTE | 2021-08-30 12:17 | EDPHYS ---
Physician Documentation [facility] Name: Mckenna Avila Age: 46 yrs Sex: Female : 1975 Arrival Date: 08/30/2021 Time: 07:02 Bed 5 Private MD: ED Physician Willie Jay HPI: 08/30 08:41 This 46 yrs old Female presents to ER via Ambulatory with complaints of ms3 Nausea/Vomiting/Diarrhea, Abdominal Pain, Back Pain. 08:41 The patient presents to the emergency department with nausea, vomiting, abdominal pain, ms3 of the abdomen, described as crampy, and does not radiate. Onset: The symptoms/episode began/occurred 2 week(s) ago. Possible causes: Hx Crohns. The symptoms are aggravated by nothing. The symptoms are alleviated by nothing. Associated signs and symptoms: Pertinent positives: diarrhea, nausea, vomiting, Pertinent negatives: fever. Severity of symptoms: At their worst the symptoms were severe in the emergency department the symptoms are unchanged. 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 - Social history:: Smoking status: Patient denies any tobacco usage or history of. ROS: 08:41 Constitutional: Negative for fever, and chills. Neck: Negative for injury, pain, and ms3 swelling, Cardiovascular: Negative for chest pain, and palpitations. Respiratory: Negative for shortness of breath, cough, wheezing, and pleuritic chest pain, MS/Extremity: Negative for injury and deformity, Skin: Negative for injury, rash, and discoloration, Neuro: Negative for headache, weakness, numbness, tingling. 08:41 Abdomen/GI: Positive for abdominal pain, nausea, vomiting, and diarrhea. 08:41 All other systems are negative. Exam: 08:41 Constitutional: This is a well developed, well nourished patient who is awake, alert, ms3 and in no acute distress. Head/Face: Normocephalic, atraumatic. Neck: Trachea midline, no cervical lymphadenopathy. Supple, full range of motion without nuchal rigidity, or vertebral point tenderness. No Meningismus. Chest/axilla: Normal chest wall appearance and motion. Nontender with no deformity. Cardiovascular: Regular rate and rhythm with a normal S1 and S2. No gallops, murmurs, or rubs. Normal PMI, no JVD. No pulse deficits. Respiratory: Lungs have equal breath sounds bilaterally, clear to auscultation and percussion. No rales, rhonchi or wheezes noted. No increased work of breathing, no retractions or nasal flaring. 08:41 Abdomen/GI: Inspection: abdomen appears normal, Bowel sounds: normal, Palpation: moderate abdominal tenderness, in all quadrants. Vital Signs: 07:19 BP 164 / 102; Pulse 88; Resp 17; Temp 98; Pulse Ox 98% on R/A; Weight 70.31 kg; Height jl7 5 ft. 7 in. (170.18 cm); Pain 9/10; 09:19 BP 148 / 90; Pulse 78; Resp 20; Pulse Ox 100% on R/A; Pain 8/10; bm7 09:52 BP 146 / 91; Pulse 76; Resp 18; Pulse Ox 99% on R/A; Pain 8/10; bm7 11:02 BP 136 / 91; Pulse 74; Resp 16; Pulse Ox 99% ; bp 12:34 BP 148 / 103; Pulse 70; Resp 16; Pulse Ox 98% ; bp 07:19 Body Mass Index 24.28 (70.31 kg, 170.18 cm) jl7 MDM: 07:30 Patient medically screened. ms3 08:41 Differential diagnosis: Nonspecific abd pain, Crohn's disease vs Bowel obstruction. ms3 12:16 Data reviewed: vital signs, nurses notes, lab test result(s), radiologic studies, and ms3 as a result, I will discharge patient. 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 ED course: Patient is improved, in NAD, non-toxic appearing, ambulatory in ED, speaking full sentences.. 08/30 08:07 Order name: CBC with Diff; Complete Time: 09:31 bp 08/30 08:07 Order name: CMP; Complete Time: 09:31 bp 08/30 08:07 Order name: Lipase; Complete Time: 09:31 bp 08/30 08:07 Order name: SARS-COV-2 RT PCR (Document "Date of Onset" if Symptomatic); Complete Time: bp 11:46 08/30 08:07 Order name: Flu; Complete Time: 09:31 bp 08/30 11:58 Order name: Urine Dipstick-Ancillary; Complete Time: 12:04 EDMS 08/30 08:15 Order name: CT Abd/Pelvis - IV Contrast Only; Complete Time: 09:31 ms3 08/30 08:07 Order name: IV Saline Lock; Complete Time: 08:25 bp 08/30 08:07 Order name: Labs collected and sent; Complete Time: 08:25 bp 08/30 08:07 Order name: Urine Dipstick-Ancillary (obtain specimen); Complete Time: 12:01 bp Administered Medications: 08:40 Drug: morphine 4 mg Route: IVP; Infused Over: 4 mins; Site: right forearm; bp 11:59 Follow up: Response: No adverse reaction bp 08:40 Drug: Zofran (Ondansetron) 4 mg Route: IVP; Site: right forearm; bp 11:59 Follow up: Response: No adverse reaction bp 09:20 Drug: NS 0.9% 1000 ml Route: IV; Rate: 1 bolus; Site: right antecubital; bp 12:36 Follow up: IV Status: Completed infusion; IV Intake: 1000ml bp 09:20 Drug: morphine 4 mg Route: IVP; Infused Over: 4 mins; Site: right antecubital; bp 11:59 Follow up: Response: No adverse reaction bp 09:20 Drug: Zofran (Ondansetron) 4 mg Route: IVP; Site: right antecubital; bp 11:59 Follow up: Response: No adverse reaction bp 11:58 Drug: Dilaudid (HYDROmorphone) 0.5 mg Route: IVP; Site: right antecubital; bp 12:00 Follow up: Response: No adverse reaction; Pain is decreased bp 11:59 Drug: Phenergan (promethazine) 12.5 mg Route: IM; Site: right gluteus; bp 12:00 Follow up: Response: No adverse reaction bp 11:59 Drug: Bentyl (dicyclomine) 20 mg Route: IM; Site: right gluteus; bp 12:00 Follow up: Response: No adverse reaction bp Disposition Summary: 08/30/21 12:16 Discharge Ordered Location: Home ms3 Condition: Stable ms3 Diagnosis - Abdominal pain, Generalized ms3 - Hematuria, unspecified ms3 - Anemia, unspecified ms3 Followup: ms3 - With: Fercho Adams MD - When: 2 - 3 days - Reason: Recheck today's complaints Discharge Instructions: - Discharge Summary Sheet ms3 - Abdominal Pain, Adult ms3 Forms: - Medication Reconciliation Form ms3 - Thank You Letter ms3 - Antibiotic Education ms3 - Prescription Opioid Use ms3 Prescriptions: - dicyclomine 20 mg Oral Tablet - take 1 tablet by ORAL route 3 times per day; 15 tablet; Refills: 0, Product ms3 Selection Permitted - promethazine 12.5 mg Rectal suppository - insert 1 suppository by RECTAL route every 6 hours; 20 suppository; Refills: 0, jmm Product Selection Permitted Signatures: Dispatcher [employer] Ariela Michelle RN RN jl7 Tom Hernandez RN RN bp Willie Jay DO DO ms3
[2021-08-30 13:20] VITALS: TEMP 98
[2021-08-30 13:33] VITALS: BP 148/103; O2SAT 98
== END 2021-08-30 12:41 | disposition home or self-care (01) ==
LOC: ER 06:57
DX: R10.84 Generalized abdominal pain (principal); R31.9 Hematuria, unspecified; D64.9 Anemia, unspecified; R11.2 Nausea with vomiting, unspecified; R19.7 Diarrhea, unspecified; Z20.822 Contact with and (suspected) exposure to COVID-19; K50.90 Crohn's disease, unspecified, without complications; Z88.1 Allergy status to other antibiotic agents
CPT/HCPCS: 85025; 36415; 81003; 83690; 80053; 87804 ×2; 74177; U0003; Q9967; J2550; J0500; J1170; J7030; J2405 ×2

== ENCOUNTER 2021-09-30 17:22 | Emergency (ER) | payer BC ==
--- OUTSIDE RECORDS SUMMARY | 2021-09-30 17:44 | XMS REPORT | Continuity of Care Document ---
:1975 Author Organization [facility] t Address [address] [place] [address] Care Team Providers Name Role Phone NICK FALLON Primary Care Physician Unavailable Nick Fallon Attending Clinician Unavailable Levy Hernandez Attending Clinician Unavailable Torey KYA Attending Clinician Unavailable Torey Ryan Attending Clinician Johnson Fisher MD Attending Clinician Josselin Redman RN Attending Clinician AD REMY Attending Clinician Unavailable Lisandra Eagle MD Attending Clinician Ad Remy MD Attending Clinician Lavon Eaton MD, Hansel Norman Attending Clinician [phone] Pob, [facility] Attending Clinician Unavailable Anish Carrera MD Attending Clinician ANISH CARRERA Attending Clinician Unavailable Doctor Unassigned, [place] Attending Clinician Unavailable Bailey Machado RN Attending Clinician Unavailable Lillian MENJIVAR, Shi Melvin Attending Clinician [phone] Jude MENJIVAR, Christina Attending Clinician JOHNSON FISHER Attending Clinician Unavailable JOHNSON FISHER Attending Clinician Unavailable HernandezFercho Sayda Attending Clinician Zackery MENJIVAR, Angy Pappas Attending Clinician Hari INSTRUMENT TECHNICIAN, Lety Shine Attending Clinician Tung INSTRUMENT TECHNICIAN, Sabrina Attending Clinician Pool MENJIVAR, Caio Attending Clinician Dash Guerrero MD Attending Clinician Satya MENJIVAR, Cade Attending Clinician ABHIJIT MCGOWAN Attending Clinician Unavailable Vishnu HEARING AID SPECIALIST, Umm Moy Attending Clinician Dottie Troncoso DO Attending Clinician Provider, [facility] Attending Clinician Unavailable Sarah Harvey Attending Clinician SARAH CANALES Attending Clinician Unavailable Judi STAUFFER, Kari A Attending Clinician Lesley Melgar Attending Clinician Abhijit Mcgowan MD Attending Clinician 2, [facility] Attending Clinician Unavailable AMIE GARCIA Attending Clinician Unavailable Torey KAY Admitting Clinician Unavailable AD REMY Admitting Clinician Unavailable Ad Remy MD Admitting Clinician Christina Roque MD Admitting Clinician Caio Hernandez MD Admitting Clinician RUSSEL WALSH Admitting Clinician Unavailable Payers Payer Name Policy Type Policy Number Effective Date Expiration Date S nela [facility] [id number] 2012 00:00:00 OUT OF STATE Problems Condition Condition Condition Status Onset Resolution Last Treating Co mments Source Name Details Category Date Date Treatment Clinician Date Hypokalemi Hypokalemi Disease Active 2020-02 U nivers a a 0-25 ity of 00:00: Medical Branch Hypotensio Hypotensio Disease Active 2020-02 U nivers n n 0-24 ity of 00:00: Medical Branch Obesity Obesity Disease Active 2020-02 Univers (BMI (BMI 0-24 ity of 30-39.9) 30-39.9) 00:00: Medical Branch 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 6-02 ity of 00:00: Medical Branch Status Status Disease Active Univers migrainosu migrainosu 5-15 it y of s s 00:00: Medical Branch Pyelonephr Pyelonephr Disease Active U nivers itis itis 4-18 ity of 00:00: Medical Branch Complicate Complicate Disease Active U nivers d UTI d UTI 5-10 ity of (urinary (urinary 00:00: [place] tract tract 00 Medical infection) infection) Br anch Chest pain Chest pain Disease Active 2014-02 U nivers 0-20 ity of 00:00: Medical Branch Allergies, Adverse Reactions, Alerts Allergy Allergy Status Severity Reaction(s) Onset Inactive Treating Comm ents Source Name Type Date Date Clinician Ciproflo Propensi Active Unknown - 2018-02 Uni vers xacin ty to See comments 1-13 ity of adverse 00:00: [place] reaction 00 Medical s Branch CIPROFLO DRUG Active Unknown-Cmnt 2018-02 Un matt XACIN INGREDI 1-13 ity of 00:00: [place] [facility] Cefdinir Propensi Active Unknown - Bloody Uni vers ty to See comments 4-06 diarrhea it y of adverse 00:00: [place] reaction 00 Medical s Branch CEFDINIR DRUG Active Unknown-Cmnt Un matt INGREDI 4-06 ity of 00:00: [place] 00 Medical Branch Cipro Adverse Active Hives, Common Reaction burning [facility] Social History Social Habit Start Date Stop Date Quantity Comments Source History of Snuff User University of tobacco use [place] [facility] History [facility] University o f Alcohol Frequency [place] M edical Branch History [facility] University o f Alcohol Std [place] Medical Drinks Branch History SDOH University o f Alcohol Binge [place] Medic al Branch Exposure to 2021-08-16 2021-08-26 Not sure [facility] SARS-CoV-2 00:00:00 08:48:00 [facility] (event) Branch Alcohol intake 2020-12-05 2020-12-05 0 /d University of 00:00:00 00:00:00 [facility] Tobacco use and 2020-06-26 2020-06-26 Smokeless tobacco Un iversity of exposure 00:00:00 00:00:00 non-user [facility] Alcohol Comment 2015-06-22 2015-06-22 No alcohol use Unive rsity of 00:00:00 00:00:00 per pt [facility] Sex [birth year] At [birth year] Universit y of 00:00:00 00:00:00 [facility] Smoking Status Start Date Stop Date Source Never smoked tobacco [facility] Medications Ordered Filled Start Stop Current Ordering Indication Dosage Frequency Signature Comments Components Source Medication Medication Date Date Medication? Clinician (SIG) Name Name FENTanyl PF No 25ug 25 mcg, Un matt (SUBLIMAZE 08-26 Intramuscu it y of (PF)) 19:45: 18:53 lar, ONCE, [place] injection 00 :00 1 dose, On Medi bernadine 25 mcg Fri [place] 08/26/21 at 1445, Routine proMETHazin No 25mg 25 mg, Uni vers e 08-26 Intramuscu ity of (PHENERGAN) 18:45: 18:53 lar, ONCE, [place] injection 00 :00 1 dose, On Medi bernadine 25 mg Fri [place] 08/26/21 at 1345, GIGI FENTanyl PF No 50ug 50 mcg, Un matt (SUBLIMAZE 08-26 Slow IV ity o f (PF)) 18:15: 17:15 Push, [place] injection 00 :00 ONCE, 1 Medical 50 mcg dose, On Branch 08/26/21 at 1315, Routine iopamidol 2021- No [id number] 50mL 50 mL, Univers (ISOVUE 08-26 Intravenou ity o f 370-500 mL) 17:45: 17:45 s, ONCE, 1 [place] injection 00 :00 dose, On Medica l 50 mL Fri Branch 08/26/21 at 1245, Routine NaCl 0.9% 2021- No 1000mL at 999 Uni vers (NS) bolus 08-26 mL/hr, ity of infusion 17:15: 18:53 1,000 mL, [place] 1,000 mL 00 :00 IV Medical Infusion, Branch ONCE, 1 dose, On Sun08/26/21 at 1215, STAT proMETHazin No 12.5mg 12.5 mg, Univers e 08-26 IV ity of (PHENERGAN) 16:30: 16:38 Piggyback, [place] 12.5 mg in 00 :00 ONCE, 1 Medica l NaCl 0.9% dose, On Branch (NS) 50 mL Fri IV 08/26/21 at piggyback 1130, GIGI ketorolac No 15mg 15 mg, Unive rs (TORADOL) 08-26 Slow IV ity of injection 16:30: 15:19 Push, [place] 15 mg 00 :00 ONCE, 1 Medical dose, On Branch 08/26/21 at 1130, GIGI morpHINE (2 No 4mg 4 mg, Slow Univers mg/mL) 08-26 IV Push, ity of injection 4 15:30: 14:33 ONCE, 1 [place] mg 00 :00 dose, On Medical Fri Branch 08/26/21 at 1030, STAT ondansetron No 4mg 4 mg, Slow Univers (ZOFRAN 08-26 IV Push, ity of (PF)) 15:15: 14:18 ONCE, 1 [place] injection 4 00 :00 dose, On Medi bernadine mg Fri Branch 08/26/21 at 1015, GIGI NaCl 0.9% 2021- No 1000mL at 999 Uni vers (NS) bolus 08-26 mL/hr, ity of infusion 15:15: 18:53 1,000 mL, [place] 1,000 mL 00 :00 IV Medical Infusion, Branch ONCE, 1 dose, On Sun08/26/21 at 1015, STAT predniSONE 2020-02 Yes 20mg Take 20 mg U nivers 10 mg 1-02 by mouth ity of tablet 03:45: daily. [place] [address] Medical Branch Hydrocodone 2020-02 Yes 1{tbl} Take [...] 3 mg Un matt 1 mg tablet -02 by mouth ity of 03:45: daily. [place] [address] Medical Branch methocarbam 2020-02 Yes 500mg Take 500 U nivers oL 500 mg -02 mg by ity of tablet 03:45: mouth at [place] [address] bedtime. Medical Branch dicyclomine 2020-02 Yes 20mg Take 20 mg Univers 20 mg -02 by mouth 3 ity of tablet 03:45: (three) [place] 04 times Medical daily. Branch famotidine 2020-02 Yes 40mg Take 40 mg U nivers 40 mg -02 by mouth ity of tablet 03:45: at [place] [address] bedtime. Medical Branch albuterol 2020-02 Yes 2{puff} [...] by mouth ity of tablet 03:45: daily. [place] [address] Medical Branch Hydrocodone 2020-02 Yes 1{tbl} Take 1 Un matt -Acetaminop 1-02 tablet by ity of hen 7.5-300 03:45: mouth 3 [place] mg tablet 04 (three) Medical times [place] daily. tiZANidine 2020-02 Yes 4mg Take 4 mg Un matt 4 mg tablet -02 by mouth 3 it y of 03:45: (three) [place] 04 times Medical daily. Branch foLIC acid 2020-02 Yes 3mg Take 3 mg Un matt 1 mg tablet -02 by mouth ity of 03:45: daily. [place] [address] Medical Branch methocarbam 2020-02 Yes 500mg Take 500 U nivers oL 500 mg 1-02 mg by ity of tablet 03:45: mouth at [place] 04 bedtime. Medical Branch dicyclomine 2020-02 Yes 20mg Take 20 mg Univers 20 mg 02 by mouth 3 ity of tablet 03:45: (three) [place] 04 times Medical daily. Branch famotidine 2020-02 Yes 40mg Take 40 mg U nivers 40 mg 02 by mouth ity of tablet 03:45: at [place] [address] bedtime. Medical Branch albuterol 2020-02 Yes 2{puff} [...] by mouth ity of tablet 03:45: daily. [address] Branch Hydrocodone 2020-02 Yes 1{tbl} Take 1 Un matt -Acetaminop 1-02 tablet by ity of hen 7.5-300 03:45: mouth 3 [place] mg tablet 04 (three) Medical times [place] daily. tiZANidine 2020-02 Yes 4mg Take 4 mg Un matt 4 mg tablet 1-02 by mouth 3 it y of 03:45: (three) [place] 04 times Medical daily. Branch foLIC acid 2020-02 Yes 3mg Take 3 mg Un matt 1 mg tablet 02 by mouth ity of 03:45: daily. [place] 04 Medical Branch methocarbam 2020-02 Yes 500mg Take 500 U nivers oL 500 mg 1-02 mg by ity of tablet 03:45: mouth at [place] 04 bedtime. Medical Branch dicyclomine 2020-02 Yes 20mg Take 20 mg Univers 20 mg 02 by mouth 3 ity of tablet 03:45: (three) [place] 04 times Medical daily. Branch famotidine 2020-02 Yes 40mg Take 40 mg U nivers 40 mg 02 by mouth ity of tablet 03:45: at [place] 04 bedtime. Medical Branch albuterol 2020-02 Yes 2{puff} Inhale 2 U nivers 90 02-13 Puffs 3 ity of mcg/actuati 03:45: (three) [place] on inhaler 04 times Medical daily. Branch diphenoxyla 2020-02 Yes 1{tbl} Take 1 Un matt te-atropine -02 tablet by ity of (LOMOTIL) 03:45: mouth [place] 2.5-0.025 04 needed. Medical mg tablet Branch Dexlansopra 2020-02 Yes 1{capsu Take 1 U nivers zole 02 le} capsule by ity of (DEXILANT) 03:45: mouth [place] 60 mg 04 before Medical capsule meals. Branch furosemide 2020-02 Yes [id number] 20mg Take 1 U nivers 20 mg 1-01 tablet by ity of tablet 00:00: mouth [place] 00 every Medical Sunday, Branch Sunday and Sunday. furosemide 2020-02 Yes [id number] 20mg Take 1 U nivers 20 mg 1-01 tablet by ity of tablet 00:00: mouth [place] 00 every Medical Sunday, Branch Sunday and Sunday. furosemide 2020-02 Yes [id number] 20mg Take 1 U nivers 20 mg 1-01 tablet by ity of tablet 00:00: mouth [place] 00 every Medical Sunday, Branch Sunday and Sunday. furosemide 2020-02 Yes [id number] 20mg Take 1 U nivers 20 mg 1-01 tablet by ity of tablet 00:00: mouth [place] 00 every Medical Sunday, Branch Sunday and Sunday. metoprolol 2020-02 Yes 25mg Take 25 mg U nivers succinate 0-31 by mouth ity of (TOPROL XL 16:03: daily. [place] ORAL) Medical Branch inFLIXimab 2020-02 Yes 840mg Inject 840 Univers (REMICADE) 0-31 mg ity of 100 mg 16:03: intravenou [place] injection 38 sly every Medic al 6 (six) Branch weeks. predniSONE 2020-02 Yes 20mg Take 20 mg U nivers 10 mg 0-31 by mouth ity of tablet 16:03: daily. [place] [address] Medical Branch Hydrocodone 2020-02 Yes 1{tbl} Take 1 Un matt -Acetaminop 0-31 tablet by ity of hen 7.5-300 16:03: mouth 3 [place] mg tablet 38 (three) Medical times Branch daily. tiZANidine 2020-02 Yes 4mg Take 4 mg Un matt 4 mg tablet 0-31 by mouth 3 it y of 16:03: (three) [place] times Medical daily. Branch foLIC acid 2020-02 Yes 3mg Take 3 mg Un matt 1 mg tablet 0-31 by mouth ity of 16:03: daily. [place] [address] Medical Branch methocarbam 2020-02 Yes 500mg Take 500 U nivers oL 500 mg 0-31 mg by ity of tablet 16:03: mouth at [place] [address] bedtime. Medical Branch dicyclomine 2020-02 Yes 20mg Take 20 mg Univers 20 mg 0-31 by mouth 3 ity of tablet 16:03: (three) [place] [address] times Medical daily. Branch famotidine 2020-02 Yes 40mg Take 40 mg U nivers 40 mg 0-31 by mouth ity of tablet 16:03: at [place] [address] bedtime. Medical Branch albuterol 2020-02 Yes 2{puff} [...] weekly. Medical Branch NaCl 0.9% 2020-02- No [id number] 1000mg Infuse Univers (NS) PgBk 0-31 11-11 1,000 mg ity o f 50 mL with 00:00: 05:59 every 12 [place] ceFEPIme 1 00 :00 (twelve) Medic al gram SolR hours for Branc h 1,000 mg 10 days. vancomycin/ 2020-02- No [id number] 1500mg 1,500 mg Univers 0.9 % sod 0-31 11-11 by IV ity of chloride 00:00: 05:59 [place]fusion [place] (VANCOMYCIN 00 :00 route Medical 1500 MG IN every 24 Branc h NS 500 ML) (twenty-fo 1.5 ur) hours gram/500 mL for 10 Soln days. NaCl 0.9% 2020-02- No [id number] 1000mg Infuse Univers (NS) PgBk 0-31 11-11 1,000 mg ity o f 50 mL with 00:00: 05:59 every 12 [place] ceFEPIme 1 00 :00 (twelve) Medic al gram SolR hours for Branc h 1,000 mg 10 days. vancomycin/ 2020-02- No [id number] 1500mg 1,500 mg Univers 0.9 % sod 0 11-11 by IV ity of chloride 00:00: [...] 2020-02- No 40meq 40 mEq, Univers (KLOR-CON 0 10-30 Oral, ity of M20) tablet 23:30: 01:25 ONCE, 1 [place] 40 mEq 00 :00 dose, On Medical Fri Branch 12/10/20 at 1830, Routine tolvaptan 2020-02 No 15mg 15 mg, Unive rs (SAMSCA) 0 10-30 Oral, ONCE ity of tablet 15 23:30: 01:25 NOW, 1 [place] mg 00 :00 dose, On Medical Fri Branch 12/10/20 at 1830, Routine
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
Reas on for Anti-Infec tive: Documented Infection< br>Documen karly Infection Site: Skin / Soft Tissue
Duration of Therapy: Other (see Comments) potassium 2020-02- No 30mmol 30 mmol, U nivers phosphate 0- IV ity of 30 mmol in 13:15: 14:16 Piggyback, [place] NaCl 0.9% 00 :00 ONCE, 1 Medical [...] No 40meq 40 mEq, Univers (KLOR-CON 0- Oral, Q4H, ity of M20) tablet 13:00: [...] [place] mg 00 First dose Medical on [facility] 12/09/20 at 1000, Until Discontinu ed, Routine calcitrioL 2020-02 Yes .5ug 0.5 mcg, Uni vers (ROCALTROL) 0 Oral, ity of capsule 0.5 15:00: DAILY, [place] mcg 00 First dose Medical on [facility] 12/09/20 at 1000, Until Discontinu ed, Routine KCL 2020-02 No 40meq 40 mEq, Univers (KLOR-CON 12-09 Oral, Q4H, ity of M20) tablet 15:00: 16:35 2 doses, [place] 40 mEq 00 :00 First dose Medical (after Branch last modificati on) on [facility] 12/09/20 at 1000, Last dose on [place] 12/09/20 at 1200, Routine hydrocortis 2020-02 No 60mg 60 mg, IV Univers one sod 12-09 Piggyback, ity o f succ 13:43: 14:47 DAILY, [place] (CORTEF) 60 13 :30 First dose Me dical mg in NaCl (after Branch 0.9% (NS) last piggyback modificati on) on [facility] 12/09/20 at 0900, Until Discontinu ed, Administer over 30 Minutes, 60 mL iopamidol 2020-02- No [id number] 120mL 120 mL, Univers (ISOVUE 12-08 Intravenou ity o f 370-500 mL) 17:23: 17:24 s, ONCE, 1 [place] injection 00 :00 dose, On Medica l 120 mL Sun [place] 12/08/20 at 1245, Routine KCL 2020-02- No 20meq 20 mEq, Univers (KLOR-CON 12-09 Oral, ity of M20) tablet 14:00: 14:47 DAILY, [place] 20 mEq 00 :30 First dose Medical on Sun12/08/20 at 0900, Until Discontinu ed, Routine hydrocortis 2020-02- No 60mg 60 mg, IV Univers one sod 12-09 Piggyback, ity o f succ 01:00: 13:43 Q12H, [place] (CORTEF) 60 00 :20 First dose Me dical mg in NaCl (after Branch 0.9% (NS) last piggyback modificati on) on Sun12/07/20 at 2000, Until Discontinu ed, Administer over 30 Minutes, 60 mL lidocaine 2020-02 Yes 5mL 5 mL, Univers 1% (PF) 0- Subcutaneo ity of (XYLOCAINE) 18:44: us, PRN, [place] injection 5 15 Starting Medi bernadine mL on [place] 12/07/20 at 1344, Until Discontinu ed, Routine, Local anesthesia NaCl 0.9% 2020-02 Yes 10mL 10 mL, Univer s (NS) 0-26 Slow IV ity of injection 17:49: Push, PRN, [place] 10 mL 04 Starting Medical on [facility] 12/07/20 at 1249, Until Discontinu ed, Routine, line maintenanc e KCL 2020-02- No 20meq 20 mEq, Univers (KLOR-CON 0-26 10- Oral, ity of M20) tablet 14:45: 13:52 ONCE, 1 [place] 20 mEq 00 :00 dose, On Medical [facility] 12/07/20 at 0945, Routine diphenoxyla 2020-02 Yes [...] dose [place] mg 00 on Sun Medical 12/06/20 Branch at 2100, Until Discontinu ed, Routine Nitrofurant 2020-02 No 100mg 100 mg, U nivers oin&Nit. 012-10 Oral, BID, ity of Macrocryst 01:00: 16:54 First dose [place] (MACROBID) 00 :09 on [facility] Medical 100 mg 12/06/20 Branch capsule 100 at 2000, mg Until Discontinu ed, Routine
Reason for Anti-Infec tive: Documented Infection< br>Documen karly Infection Site: Urine
D uration of Therapy: 7 days lactobacill 2020-02 Yes .5mg 0.5 mg, Uni vers us 0- Oral, TID, ity of acidophilus 19:00: First dose [place] tablet 0.5 00 on [facility] Medical mg 12/06/20 Branch at 1400, [...] 1,250 mg Univers 1250 mg in 0-25 10-28 (rounded ity of NS 250 mL 18:30: 23:35 from 1,305 [place] RTU IV 00 :38 mg = 15 Medical [place] mg/kg ?87 Branc h 1,250 mg kg), IV [place], Q12H ABX, First dose (after last modificati on) on [facility] 12/06/20 at 1330, Until Discontinu ed, Administer over 90 Minutes
Reason for Anti-Infec tive: Empiric Therapy for Suspected Infection< br>Empiric Therapy Site: Blood
D uration of therapy: 7 days metoprolol 2020-02 Yes 25mg 25 mg, Unive rs succinate 0-25 Oral, ity of XL (TOPROL 14:00: DAILY, [place] XL) tablet 00 First dose Med ical 25 mg on [facility] Branch 12/06/20 at 0900, Until Discontinu ed foLIC acid 2020-02 Yes 3mg 3 mg, Univer s (FOLATE) 0-25 Oral, ity of tablet 3 mg 14:00: DAILY, [place] 00 First dose Medical on [facility] 12/06/20 at 0900, Until Discontinu ed, Routine diphenoxyla 2020-02- No 1{tbl} 1 tablet, [facility] [place] te-atropine 0-25 12-06 Oral, ity of (LOMOTIL) 14:00: 17:51 DAILY, [place] 2.5-0.025 00 :45 First dose Medi bernadine mg tablet 1 on [facility] tablet 12/06/20 at 0900, Until Discontinu ed, Routine gabapentin 2020-02 Yes 600mg 600 mg, Uni vers (NEURONTIN) 0-25 Oral, TID, it y of tablet 600 13:00: First dose [place] mg 00 on [facility] 12/06/20 Branch at 0800, Until Discontinu ed, Routine hydrocortis 2020-02- No 60mg 60 mg, IV Univers one sod 12-07 Piggyback, ity o f succ 11:00: 22:27 Q8H, First [place] (CORTEF) 60 00 :12 dose on Medic al mg in NaCl [facility] 0.9% (NS) 12/06/20 piggyback at 0600, Until Discontinu ed, Administer over 30 Minutes, 60 mL HYDROcodone 2020-02 Yes 1{tbl} 1 tablet, Univers -acetaminop 0-25 Oral, ity of hen (NORCO) 09:21: Q6HPRN, [place] 10-325 mg 08 Starting Medica l tablet 1 on Sun Branch tablet 12/06/20 at 0421, Until Discontinu ed, Routine, Pain (scale 7-10) alum-mag 2020-02 Yes 30mL 30 mL, Univers hydroxide-s 0-25 Oral, ity of imeth 09:20: Q6HPRN, [place] (MAALOX 42 Starting Medical PLUS / on Sun Branch MAG-AL 12/06/20 PLUS) at 0420, 200-200-20 [...] IV [place], Q12H ABX, First dose on [place] 12/05/20 at 2330, Until Discontinu ed, Administer over 90 Minutes
Reason for Anti-Infec tive: Empiric Therapy for Suspected Infection< br>Empiric Therapy Site: Blood
D uration of therapy: 7 days heparin 2020-02 Yes 5000U 5,000 Univers (porcine) 0-25 Units, ity of injection 03:00: Subcutaneo [place] 5,000 Units 00 us, Q8H, [facility] First dose Branch on [place] 12/05/20 at 2200, Until Discontinu ed, Routine busPIRone 2020-02 Yes 20mg 20 mg, Univer s (BUSPAR) 0-25 Oral, TID, ity o f tablet 20 02:30: First dose [place] mg 00 (after Medical last Branch modificati on) on [place] 12/05/20 at 2130, Until Discontinu ed, Routine morpHINE 2020-02- No 2mg 2 mg, Slow Un matt injection 2 0-25 10-25 IV Push, ity of mg 02:26: 09:22 Q4HPRN, [place] 54 :17 Starting Medical on Sun Branch 12/05/20 at 2125, Until 12/06/20 at 0422, Routine, breakthrou gh proCHLORper 2020-02 Yes 10mg 10 mg, Univ ers azine 0-25 Slow IV ity of (COMPAZINE) 02:25: Push, [place] injection 36 Q6HPRN, Medical 10 mg Starting Branch on 12/05/20 at 5, Until Discontinu ed, Routine, Nausea and Vomiting (N/V) LORazepam 2020-02 Yes 1mg 1 mg, Univers (ATIVAN) 0-25 Oral, ity of tablet 1 mg 02:21: QHSPRN, [place] 44 Starting Medical on [place] 12/05/20 at 2120, Until Discontinu ed, Routine, Anxiety, Agitation, insomnia HYDROcodone 2020-02- No 7.5mg 7.5 mg, U nivers -acetaminop 0-25 10-25 Oral, ity of hen (HYCET) 02:21: 09:22 Q6HPRN, [place] 7.5-325 29 :17 Starting Medical mg/15 mL on [place] Branch solution 12/05/20 7.5 mg at 2120, Until Sun12/06/20 at 0422, Pain (scale 7-10) albuterol 2020-02 Yes 2{puff} 2 Puff, Un matt (VENTOLIN) 0-25 Inhalation ity of inhaler 2 02:20: , Q4HPRN, [place] Puff 03 Starting Medical on [place] Branch 12/05/20 at 2120, Until Discontinu ed, Routine, Wheezing, Shortness of Breath potassium 2020-02- No 10meq 10 mEq, IV Univers chloride in 0-25 10-25 Piggyback, i ty of water 10 02:00: 05:59 Q1H, 4 [place] mEq/100 mL 00 :00 doses, Medical RTU 10 mEq First dose [facility] on Sun12/05/20 at 2100, Last dose on Sun12/06/20 at 0000, Administer over 60 Minutes, 100 mL magnesium 2020-02- No 2g 2 g, IV Univ ers sulfate in 0-25 10-25 Piggyback, it y of water 2 02:00: 04:57 Q1H, 2 [place] gram/50 mL 00 :00 doses, Medical (4 %) First dose Branch infusion 2 on [place] g 12/05/20 at 2100, Last dose on 12/05/20 at 2200, Routine calcium 2020-02- No 2g 2 g, IV Univer s gluconate 2 0-25 10-25 Infusion, it y of g in NaCl 01:15: 01:32 ONCE, 1 [place] 100 mL 00 :00 dose, On Medical (ISO-OSM) [facility] RTU IV 12/05/20 infusion 2 at 2014, g Routine potassium 2020-02 No 10meq 10 mEq, IV Univers chloride in 0-25 10-25 Piggyback, i ty of water 10 01:00: 03:07 Q1H, 4 [place] mEq/100 mL 00 :43 doses, Medical RTU 10 mEq First dose Bra nch on [place] 12/05/20 at 2000, Last dose on [place] 12/05/20 at 2300, Administer over 60 Minutes, 100 mL KCL 2020-02 No 40meq 40 mEq, Univers (KLOR-CON 0-25 10-25 Oral, Q1H, ity of M20) tablet 01:00: 02:59 2 doses, [place] 40 mEq 00 :00 First dose Medical on [place] Branch 12/05/20 at 2000, Last dose on [place] 12/05/20 at 2100, Routine NaCl 0.9% 2020-02- No 1000mL at 150 Uni vers (NS) IV 0-24 10-26 mL/hr, ity of infusion 22:45: 20:37 Intravenou [place] 1,000 mL 00 :12 s, Medical CONTINUOUS Branch , Starting on [place] 12/05/20 at 1745, Until Sun12/07/20 at 1537, [...] CONTINUOUS Medic al , Starting Branch on [place] 12/05/20 at 1630, Until [place] 12/05/20 at 1900, Routine NaCl 0.9% 2020-02- No 1000mL at 999 Uni vers (NS) bolus 0-24 10-24 mL/hr, ity of infusion 21:30: 21:43 1,000 mL, [place] 1,000 mL 00 :00 IV Medical Infusion, [place] ONCE, 1 dose, On [place] 12/05/20 at 1630, STAT ondansetron 2020-02 Yes 4mg 4 mg, Slow Univers (ZOFRAN 0-24 IV Push, ity of (PF)) 21:29: Q6HPRN, [place] injection 4 30 Starting Medi bernadine mg on [facility] 12/05/20 at 1629, Until Discontinu ed, Routine, Nausea and Vomiting (N/V) acetaminoph 2020-02 Yes 650mg 650 mg, Un matt en 0-24 Oral, ity of (TYLENOL) 21:29: Q6HPRN, [place] tablet 650 19 Starting Medic al mg on [facility] 12/05/20 at 1629, Until Discontinu ed, Routine, Pain (scale 1-3), Temp > 38.5 C dicyclomine 2020-02- No 20mg Take 20 mg Univers 20 mg 0-24 10-24 by mouth 3 ity of tablet 21:23: 00:00 (three) [place] 29 :00 times Medical daily. Branch erenumab-ao 2020-02- No inject Uni vers oe (AIMOVIG 0-24 10-24 under the it y of AUTOINJECTO 21:23: 00:00 skin. [place] R) 140 29 :00 Medical mg/mL AtIn [place] hydrocortis 2020-02- No 100mg 100 mg, IV Univers one sod 0-24 10-24 Push, ity of succ 21:00: 20:23 ONCE, 1 [place] (CORTEF) 00 :00 dose, On Medical injection Sun Branch 100 mg 12/05/20 at 1600, Routine NaCl 0.9% 2020-02 No 30mL/kg at 999 Un matt (NS) [...] :00 (two) Medical times Branch daily. sulfamethox 2020-02 No 1{tbl} Take 1 [facility] azole[facility] 0-20 10-31 tablet by it y of thoprim 00:00: 00:00 mouth 2 [place] 400-80 mg 00 :00 (two) Medical per [...] 00 ONCE EVERY Medical MONTH. Branch AIMOVIG 2021-0 Yes 140mg INJECT 140 Uni vers AUTOINJECTO 8-31 MG UNDER ity of R 140 mg/mL 00:00: [place]IN [place] AtIn 00 ONCE EVERY Medical MONTH. Branch AIMOVIG 0 Yes 140mg INJECT 140 Uni vers AUTOINJECTO 8-31 MG UNDER ity of R 140 mg/mL 00:00: [place]IN [place] AtIn 00 ONCE EVERY Medical MONTH. Branch magnesium 2020-0 Yes 400mg 400 mg, Univ ers oxide 6-03 Oral, ity of (MAG-OX 14:00: DAILY, [place] 400) tablet 00 First dose Me dical 400 mg on [place] 07/15/20 at 0900, Until Discontinu ed, Routine busPIRone 0 Yes 20mg 20 mg, Univer s (BUSPAR) 6-03 Oral, BID, ity o f tablet 20 01:00: First dose [place] mg 00 on Wed Medical 07/14/20 at [place] 2000, Until Discontinu ed, Routine magnesium 2020-0 Yes [id number] 400mg Take 400 Univers oxide 420 6-03 mg by ity of mg Tab 00:00: mouth [place] 00 daily. Medical Branch magnesium 2020-0 Yes [id number] 400mg Take 400 Univers oxide 420 6-03 mg by ity of mg Tab 00:00: mouth [place] 00 daily. Medical Branch magnesium 2020-0 Yes [id number] 400mg Take 400 Univers oxide 420 6-03 mg by ity of mg Tab 00:00: mouth [place] 00 daily. Medical Branch magnesium 2020-0 Yes [id number] 400mg Take 400 Univers oxide 420 6-03 mg by ity of mg Tab 00:00: mouth [place] 00 daily. Medical Branch magnesium 2020-0 Yes [id number] 400mg Take 400 [facility] oxide 420 6-03 mg by ity of mg Tab 00:00: mouth [place] 00 daily. Medical Branch magnesium 2020-0 Yes [id number] 400mg Take 400 [facility] oxide 420 6-03 mg by ity of mg Tab 00:00: mouth [place] 00 daily. Medical Branch magnesium 2020-0 Yes [id number] 400mg Take 400 Univers oxide 420 6-03 mg by ity of mg Tab 00:00: mouth [place] 00 daily. Medical Branch magnesium 2020-0 Yes [id number] 400mg Take 400 [facility] oxide 420 6-03 mg by ity of mg Tab 00:00: mouth [place] 00 daily. Medical Branch magnesium 2020-0 Yes [id number] 400mg Take 400 [facility] oxide 420 6-03 mg by ity of mg Tab 00:00: mouth [place] 00 daily. Medical Branch magnesium 2020-0 Yes [id number] 400mg Take 400 Univers oxide 420 6-03 mg by ity of mg Tab 00:00: mouth [place] 00 daily. Medical Branch magnesium 2020-0 Yes [id number] 400mg Take 400 Univers oxide 420 6-03 mg by ity of mg Tab 00:00: mouth [place] 00 daily. Medical Branch magnesium 2020-0 Yes [id number] 400mg Take 400 Univers oxide 420 6-03 mg by ity of mg Tab 00:00: mouth [place] 00 daily. Medical Branch magnesium 2020-0 Yes [id number] 400mg Take 400 Univers oxide 420 6-03 mg by ity of mg Tab 00:00: mouth [place] 00 daily. Medical Branch magnesium 2020-0 Yes [id number] 400mg Take 400 Univers oxide 420 6-03 mg by ity of mg Tab 00:00: mouth [place] 00 daily. Medical Branch magnesium 2020-0 2020- No [id number] 400mg Take 400 Univers oxide 420 6-03 10-24 mg by ity of mg Tab 00:00: 00:00 mouth [place] 00 :00 daily. Medical Branch metoprolol Yes 25mg Take 25 mg U nivers succinate 6-02 by mouth ity of (TOPROL XL 23:15: daily. [place] ORAL) 16 Medical Branch inFLIXimab Yes 840mg [...] (AIMOVIG 02 under the ity of AUTOINJECTO 23:15: skin. [...] (AIMOVIG 602 under the ity of AUTOINJECTO 23:15: skin. [...] (AIMOVIG 602 under the ity of AUTOINJECTO 23:15: skin. [...] (AIMOVIG 602 under the ity of AUTOINJECTO 23:15: skin. [...] 140 16 Medical mg/mL AtIn Branch ondansetron 0 Yes 4mg 4 mg, Slow Univers (ZOFRAN [...] Last dose on Sun07/15/20 at 0600, Routine
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 Restricted medication : CHRISTINA ROQUE magnesium 2020- No 2g 2 g, IV Univ ers sulfate in 07-14 Piggyback, it y of water 2 11:15: 15:20 ONCE, 1 [place] gram/50 mL 00 :00 dose, Sun Medi bernadine (4 %) 07/14/20 at Branch infusion 2 0615, g Routine NaCl 0.9% Yes 1000mL at 50 Unive rs (NS) IV 6-02 mL/hr, IV ity of infusion 10:15: Infusion, [place] 1,000 mL 00 CONTINUOUS Medic al , Starting Branch Sun07/14/20 at 0515, Until Discontinu ed, Routine acetaminoph Yes 650mg 650 mg, Un matt en 602 Oral, ity of (TYLENOL) 10:11: Q6HPRN, [place] tablet 650 51 Starting Medic al mg Sun07/14/20 Branch at 0511, Until Discontinu ed, Routine, Pain (scale 4-6) docusate Yes 100mg 100 mg, Unive rs (COLACE) 6 Oral, ity of capsule 100 10:11: QDAILYPRN, [place] mg 50 Starting Medical Sun07/14/20 Branch at 0511, Until Discontinu ed, Routine, Constipati on diphenhydrA 2020- No 25mg 25 mg, Uni vers MINE 07-14 Slow IV ity of (BENADRYL) 01:00: 09:39 Push, [place] injection 00 :00 ONCE, 1 Medical 25 mg dose, [facility] 07/13/20 at 1999, STAT metoclopram 2020- No 10mg 10 mg, Uni vers marilyn HCl 07-14 Slow IV ity of (REGLAN) 01:00: 09:39 Push, [place] injection 00 :00 ONCE, 1 Medical 10 mg dose, [facility] 07/13/20 at 1999, GIGI amitriptyli Yes [id number] 25mg Take 1 Univers ne 25 mg 6-02 tablet by ity of tablet 00:00: mouth at [place] [address] bedtime. Medical Branch riboflavin, Yes [id number] 400mg Take 400 Univers vitamin B2, 6-02 mg by ity of 400 mg Tab 00:00: mouth [place] 00 daily. Medical Branch amitriptyli Yes [id number] 25mg Take 1 Univers ne 25 mg 6-02 tablet by ity of tablet 00:00: mouth at [place] [address] bedtime. Medical Branch riboflavin, Yes [id number] 400mg Take 400 Univers vitamin B2, 6-02 mg by ity of 400 mg Tab 00:00: mouth [place] 00 daily. Medical Branch amitriptyli Yes [id number] 25mg Take 1 Univers ne 25 mg 6-02 tablet by ity of tablet 00:00: mouth at [place] bedtime. Medical Branch riboflavin, Yes [id number] 400mg Take 400 Univers vitamin B2, 6-02 mg by ity of 400 mg Tab 00:00: mouth [place] 00 daily. Medical Branch amitriptyli Yes [id number] 25mg Take 1 Univers ne 25 mg 6-02 tablet by ity of tablet 00:00: mouth at [place] bedtime. Medical Branch riboflavin, Yes [id number] 400mg Take 400 Univers vitamin B2, 6-02 mg by ity of 400 mg Tab 00:00: mouth daily. Medical Branch amitriptyli Yes [id number] 25mg Take 1 Univers ne 25 mg 6-02 tablet by ity of tablet 00:00: mouth at [place] bedtime. Medical Branch riboflavin, Yes [id number] 400mg Take 400 Univers vitamin B2, 6-02 mg by ity of 400 mg Tab 00:00: mouth daily. Medical Branch amitriptyli Yes [id number] 25mg Take 1 Univers ne 25 mg 6-02 tablet by ity of tablet 00:00: mouth at [place] bedtime. Medical Branch riboflavin, Yes [id number] 400mg Take 400 Univers vitamin B2, 6-02 mg by ity of 400 mg Tab 00:00: mouth daily. Medical Branch amitriptyli Yes [id number] 25mg Take 1 Univers ne 25 mg 6-02 tablet by ity of tablet 00:00: mouth at [place] bedtime. Medical Branch riboflavin, Yes [id number] 400mg Take 400 Univers vitamin B2, 6-02 mg by ity of 400 mg Tab 00:00: mouth daily. Medical Branch amitriptyli Yes [id number] 25mg Take 1 Univers ne 25 mg 6-02 tablet by ity of tablet 00:00: mouth at [place] bedtime. Medical Branch riboflavin, Yes [id number] 400mg Take 400 Univers vitamin B2, 6-02 mg by ity of 400 mg Tab 00:00: mouth [place] 00 daily. Medical Branch amitriptyli 0 Yes [id number] 25mg Take 1 Univers ne 25 mg 6-02 tablet by ity of tablet 00:00: mouth at [place] bedtime. Medical Branch riboflavin, 0 Yes [id number] 400mg Take 400 Univers vitamin B2, 6-02 mg by ity of 400 mg Tab 00:00: mouth [place] 00 daily. Medical Branch amitriptyli Yes [id number] 25mg Take 1 Univers ne 25 mg 6-02 tablet by ity of tablet 00:00: mouth at [place] bedtime. Medical Branch riboflavin, Yes [id number] 400mg Take 400 Univers vitamin B2, 6-02 mg by ity of 400 mg Tab 00:00: mouth 00 daily. Medical Branch amitriptyli Yes [id number] 25mg Take 1 Univers ne 25 mg 6-02 tablet by ity of tablet 00:00: mouth at [place] bedtime. Medical Branch riboflavin, Yes [id number] 400mg Take 400 Univers vitamin B2, 6-02 mg by ity of 400 mg Tab 00:00: mouth daily. Medical Branch amitriptyli Yes [id number] 25mg Take 1 Univers ne 25 mg 6-02 tablet by ity of tablet 00:00: mouth at [place] bedtime. Medical Branch riboflavin, Yes [id number] 400mg Take 400 Univers vitamin B2, 6-02 mg by ity of 400 mg Tab 00:00: mouth daily. Medical Branch amitriptyli 0 Yes [id number] 25mg Take 1 Univers ne 25 mg 6-02 tablet by ity of tablet 00:00: mouth at [place] bedtime. Medical Branch riboflavin, 0 Yes [id number] 400mg Take 400 Univers vitamin B2, 6-02 mg by ity of 400 mg Tab 00:00: mouth [place] 00 daily. Medical Branch amitriptyli 0 Yes [id number] 25mg Take 1 Univers ne 25 mg 6-02 tablet by ity of tablet 00:00: mouth at [place] bedtime. Medical Branch riboflavin, 0 Yes [id number] 400mg Take 400 Univers vitamin B2, 6-02 mg by ity of 400 mg Tab 00:00: mouth [place] 00 daily. Medical Branch amitriptyli 2020- No [id number] 25mg Take 1 Univers ne 25 mg 07-1424 tablet by ity o f tablet 00:00: 00:00 mouth at [place] 00 :00 bedtime. Medical Branch riboflavin, 2020- No [id number] 400mg Take 400 Univers vitamin B2, 07-14 10-24 mg by ity of 400 mg Tab 00:00: 00:00 mouth [place] 00 :00 daily. Medical Branch metoprolol 2020- No 5mg 5 mg, Slow Univers (LOPRESSOR) 07-07 IV Push, ity of injection 5 04:15: 03:20 ONCE, 1 [place] mg 00 :00 dose, [facility] 07/06/20 at Branch 2315, GIGI ondansetron 2020- No 4mg 4 mg, Slow Univers (ZOFRAN 07-07 IV Push, ity of (PF)) 04:15: 03:20 ONCE, 1 [place] injection 4 00 :00 dose, [facility] Med ical mg 07/06/20 at Branch 2315, GIGI morpHINE 2020- No 4mg 4 mg, Slow Un matt injection 4 07-07 IV Push, ity of mg 04:15: 03:20 ONCE, 1 [place] 00 :00 dose, [facility] 07/06/20 at Branch 2315, STAT LORazepam 2020- No 2mg 2 mg, Univer s (ATIVAN) 07-07 Intramuscu ity of injection 2 03:30: 02:26 lar, ONCE, [place] mg 00 :00 1 dose, [facility] 07/06/20 at 2230, STAT cloNIDine 2020- No .2mg 0.2 mg, Univ ers (CATAPRES) 07-07 Oral, ity of tablet 0.2 03:00: 01:58 ONCE, 1 [place] mg 00 :00 dose, [facility] 07/06/20 at Branch 2200, STAT ondansetron 2020- No 4mg 4 mg, Univ ers (ZOFRAN-ODT 07-07 Oral, ity of ) 02:00: 01:10 ONCE, 1 [place] disintegrat 00 :00 dose, Tue Med ical ing tablet 07/06/20 at Bra nch 4 mg 2099, Routine butorphanol 2mg 2 mg, Univ ers (STADOL) 07-07 Intramuscu ity of injection 2 02:00: 01:10 lar, ONCE [place] mg 00 :00 NOW, 1 Medical dose, Tue Branch 07/06/20 at 2100, Routine ondansetron Yes [id number] 4mg Take 1 Univers (ZOFRAN) 4 5-25 tablet by ity of mg tablet 00:00: mouth [place] 00 every 8 Medical (eight) Branch hours as needed for Nausea and Vomiting (N/V). ondansetron Yes [id number] 4mg Take 1 Univers (ZOFRAN) 4 5-25 tablet by ity of mg tablet 00:00: mouth [place] 00 every 8 Medical (eight) Branch hours as needed for Nausea and Vomiting (N/V). ondansetron Yes [id number] 4mg Take 1 Univers (ZOFRAN) 4 5-25 tablet by ity of mg tablet 00:00: mouth [place] 00 every 8 Medical (eight) Branch hours as needed for Nausea and Vomiting (N/V). ondansetron Yes [id number] 4mg Take 1 Univers (ZOFRAN) 4 5-25 tablet by ity of mg tablet 00:00: mouth [place] 00 every 8 Medical (eight) Branch hours as needed for Nausea and Vomiting (N/V). ondansetron Yes [id number] 4mg Take 1 Univers (ZOFRAN) 4 5-25 tablet by ity of mg tablet 00:00: mouth [place] 00 every 8 Medical (eight) Branch hours as needed for Nausea and Vomiting (N/V). ondansetron 0 Yes [id number] 4mg Take 1 Univers (ZOFRAN) 4 5-25 tablet by ity of mg tablet 00:00: mouth [place] 00 every 8 Medical (eight) Branch hours as needed for Nausea and Vomiting (N/V). ondansetron Yes [id number] 4mg Take 1 Univers (ZOFRAN) 4 5-25 tablet by ity of mg tablet 00:00: mouth [place] 00 every 8 Medical (eight) Branch hours as needed for Nausea and Vomiting (N/V). ondansetron 2020-0 Yes [id number] 4mg Take 1 Univers (ZOFRAN) 4 5-25 tablet by ity of mg tablet 00:00: mouth [place] 00 every 8 Medical (eight) Branch hours as needed for Nausea and Vomiting (N/V). ondansetron 2020-0 Yes [id number] 4mg Take 1 Univers (ZOFRAN) 4 5-25 tablet by ity of mg tablet 00:00: mouth [place] 00 every 8 Medical (eight) Branch hours as needed for Nausea and Vomiting (N/V). ondansetron 2020-0 Yes [id number] 4mg Take 1 Univers (ZOFRAN) 4 5-25 tablet by ity of mg tablet 00:00: mouth [place] 00 every 8 Medical (eight) Branch hours as needed for Nausea and Vomiting (N/V). ondansetron 2020-0 Yes [id number] 4mg Take 1 Univers (ZOFRAN) 4 5-25 tablet by ity of mg tablet 00:00: mouth [place] 00 every 8 Medical (eight) Branch hours as needed for Nausea and Vomiting (N/V). ondansetron 2020-0 Yes [id number] 4mg Take 1 Univers (ZOFRAN) 4 5-25 tablet by ity of mg tablet 00:00: mouth [place] 00 every 8 Medical (eight) Branch hours as needed for Nausea and Vomiting (N/V). ondansetron 2020-0 Yes [id number] 4mg Take 1 Univers (ZOFRAN) 4 5-25 tablet by ity of mg tablet 00:00: mouth [place] 00 every 8 Medical (eight) Branch hours as needed for Nausea and Vomiting (N/V). ondansetron 2020-0 Yes [id number] 4mg Take 1 Univers (ZOFRAN) 4 5-25 tablet by ity of mg tablet 00:00: mouth [place] 00 every 8 Medical (eight) Branch hours as needed for Nausea and Vomiting (N/V). ondansetron 2020-0 Yes [id number] 4mg Take 1 Univers (ZOFRAN) 4 5-25 tablet by ity of mg tablet 00:00: mouth [place] 00 every 8 Medical (eight) Branch hours as needed for Nausea and Vomiting (N/V). ondansetron Yes [id number] 4mg Take 1 Univers (ZOFRAN) 4 5-25 tablet by ity of mg tablet 00:00: mouth [place] 00 every 8 Medical (eight) Branch hours as needed for Nausea and Vomiting (N/V). ondansetron Yes [id number] 4mg Take 1 Univers (ZOFRAN) 4 5-25 tablet by ity of mg tablet 00:00: mouth [place] 00 every 8 Medical (eight) Branch hours as needed for Nausea and Vomiting (N/V). ondansetron Yes [id number] 4mg Take 1 Univers (ZOFRAN) 4 5-25 tablet by ity of mg tablet 00:00: mouth [place] 00 every 8 Medical (eight) Branch hours as needed for Nausea and Vomiting (N/V). ondansetron Yes [id number] 4mg Take 1 Univers (ZOFRAN) 4 5-25 tablet by ity of mg tablet 00:00: mouth [place] 00 every 8 Medical (eight) Branch hours as needed for Nausea and Vomiting (N/V). ondansetron Yes [id number] 4mg Take 1 Univers (ZOFRAN) 4 5-25 tablet by ity of mg tablet 00:00: mouth [place] 00 every 8 Medical (eight) Branch hours as needed for Nausea and Vomiting (N/V). ondansetron Yes [id number] 4mg Take 1 Univers (ZOFRAN) 4 5-25 tablet by ity of mg tablet 00:00: mouth [place] 00 every 8 Medical (eight) Branch hours as needed for Nausea and Vomiting (N/V). ondansetron 2020- No [id number] 4mg Take 1 Univers (ZOFRAN) 4 5-25 10-24 tablet by ity of mg tablet 00:00: 00:00 mouth [place] 00 :00 every 8 Medical (eight) Branch hours as needed for Nausea and Vomiting (N/V). butalbital- 2020- No [id number] 1{capsu Take 1 Univers aspirin-caf 5-25 07-14 le} capsule by i ty of feine-codei [...] No [id number] 1{capsu Take 1 Univers aspirin-caf 07-06 le} capsule by jelani draper 00:00: 00:00 mouth [place] ne 00 :00 every 4 Medical (FIORINAL-C (four) Branch ODEINE #3) hours as per capsule needed for Pain for up to 7 days. Indication s: acute pain butorphanol 2020- No 1mg 1 mg, IV U nivers (STADOL) 07-04 Push, ity of injection 1 21:15: 20:28 ONCE, 1 [place] mg 00 :00 dose, [facility] 07/04/20 at Branch 1615, Routine proMETHazin [...] [place] mg 00 :00 dose, [facility] 07/04/20 at Branch 1430, Routine LORazepam 2020- No 1mg 1 mg, Slow U nivers (ATIVAN) 07-04 IV Push, ity of injection 1 19:30: 19:00 ONCE, 1 [place] mg 00 :00 dose, [facility] 07/04/20 at Branch 1430, STAT NaCl 0.9% 2020- No 1000mL at 999 Uni vers (NS) IV 07-04 mL/hr, IV ity of infusion 19:30: 20:53 Infusion, [place] 1,000 mL 00 :00 ONCE, 1 Medical dose, [facility] 07/04/20 at 1430, Routine dexamethaso No 10mg 10 mg, IV Univers ne 5-23 05-23 Push, ity of (DECADRON 19:30: 19:02 ONCE, 1 [place] PHOSPHATE) 00 :00 dose, Sun Medi bernadine injection 07/04/20 at Bran ch 10 mg 1430, STAT butalbital- 202- No 2{tbl} 2 tablet, Univers acetaminoph 5-23 05-23 Oral, ity of en-caff 19:30: 18:40 ONCE, 1 [place] (ESGIC) 00 :00 dose, Sun Medical 50-325-40 07/04/20 at Bran ch mg tablet 2 1430, tablet Routine butalbital- Yes [id number] 1{tbl} Take 1 Univers acetaminoph 5-23 tablet by ity of en-caff 00:00: mouth [place] 50-325-40 00 every 6 Medical mg tablet (six) Branch hours as needed for Pain (scale 7-10). butalbital- Yes [id number] 1{tbl} Take 1 Univers acetaminoph 5-23 tablet by ity of en-caff 00:00: mouth [place] 50-325-40 00 every 6 Medical mg tablet (six) Branch hours as needed for Pain (scale 7-10). butalbital- Yes [id number] 1{tbl} Take 1 Univers acetaminoph 5-23 tablet by ity of en-caff 00:00: mouth [place] 50-325-40 00 every 6 Medical mg tablet (six) Branch hours as needed for Pain (scale 7-10). butalbital- Yes [id number] 1{tbl} Take 1 Univers acetaminoph 5-23 tablet by ity of en-caff 00:00: mouth [place] 50-325-40 00 every 6 Medical mg tablet (six) Branch hours as needed for Pain (scale 7-10). butalbital- Yes [id number] 1{tbl} Take 1 Univers acetaminoph 5-23 tablet by ity of en-caff 00:00: mouth [place] 50-325-40 00 every 6 Medical mg tablet (six) Branch hours as needed for Pain (scale 7-10). butalbital- Yes [id number] 1{tbl} Take 1 Univers acetaminoph 5-23 tablet by ity of en-caff 00:00: mouth [place] 50-325-40 00 every 6 Medical mg tablet (six) Branch hours as needed for Pain (scale 7-10). butalbital- Yes [id number] 1{tbl} Take 1 Univers acetaminoph 5-23 tablet by ity of en-caff 00:00: mouth [place] 50-325-40 00 every 6 Medical mg tablet (six) Branch hours as needed for Pain (scale 7-10). butalbital- Yes [id number] 1{tbl} Take 1 Univers acetaminoph 5-23 tablet by ity of en-caff 00:00: mouth [place] 50-325-40 00 every 6 Medical mg tablet (six) Branch hours as needed for Pain (scale 7-10). butalbital Yes [id number] 1{tbl} Take 1 Univers acetaminoph 5-23 tablet by ity of en-caff 00:00: mouth [place] 50-325-40 00 every 6 Medical mg tablet (six) Branch hours as needed for Pain (scale 7-10). butalbital Yes [id number] 1{tbl} Take 1 Univers acetaminoph 5-23 tablet by ity of en-caff 00:00: mouth [place] 50-325-40 00 every 6 Medical mg tablet (six) Branch hours as needed for Pain (scale 7-10). butalbital Yes [id number] 1{tbl} Take 1 Univers acetaminoph 5-23 tablet by ity of en-caff 00:00: mouth [place] 50-325-40 00 every 6 Medical mg tablet (six) Branch hours as needed for Pain (scale 7-10). butalbital- Yes [id number] 1{tbl} Take 1 Univers acetaminoph 5-23 tablet by ity of en-caff 00:00: mouth [place] 50-325-40 00 every 6 Medical mg tablet (six) Branch hours as needed for Pain (scale 7-10). butalbital- Yes [id number] 1{tbl} Take 1 Univers acetaminoph 5-23 tablet by ity of en-caff 00:00: mouth [place] 50-325-40 00 every 6 Medical mg tablet (six) Branch hours as needed for Pain (scale 7-10). butalbital- Yes [id number] 1{tbl} Take 1 Univers acetaminoph 5-23 tablet by ity of en-caff 00:00: mouth [place] 50-325-40 00 every 6 Medical mg tablet (six) Branch hours as needed for Pain (scale 7-10). butalbital- Yes [id number] 1{tbl} Take 1 Univers acetaminoph 5-23 tablet by ity of en-caff 00:00: mouth [place] 50-325-40 00 every 6 Medical mg tablet (six) Branch hours as needed for Pain (scale 7-10). butalbital- Yes [id number] 1{tbl} Take 1 Univers acetaminoph 5-23 tablet by ity of en-caff 00:00: mouth [place] 50-325-40 00 every 6 Medical mg tablet (six) Branch hours as needed for Pain (scale 7-10). butalbital- Yes [id number] 1{tbl} Take 1 Univers acetaminoph 5-23 tablet by ity of en-caff 00:00: mouth [place] 50-325-40 00 every 6 Medical mg tablet (six) Branch hours as needed for Pain (scale 7-10). butalbital- Yes [id number] 1{tbl} Take 1 Univers acetaminoph 5-23 tablet by ity of en-caff 00:00: mouth [place] 50-325-40 00 every 6 Medical mg tablet (six) Branch hours as needed for Pain (scale 7-10). butalbital- Yes [id number] 1{tbl} Take 1 Univers acetaminoph 5-23 tablet by ity of en-caff 00:00: mouth [place] 50-325-40 00 every 6 Medical mg tablet (six) Branch hours as needed for Pain (scale 7-10). butalbital- Yes [id number] 1{tbl} Take 1 Univers acetaminoph 5-23 tablet by ity of en-caff 00:00: mouth [place] 50-325-40 00 every 6 Medical mg tablet (six) Branch hours as needed for Pain (scale 7-10). butalbital- Yes [id number] 1{tbl} Take 1 Univers acetaminoph 5-23 tablet by ity of en-caff 00:00: mouth [place] 50-325-40 00 every 6 Medical mg tablet (six) Branch hours as needed for Pain (scale 7-10). butalbital- 0 Yes [id number] 1{tbl} Take 1 Univers acetaminoph 5-23 tablet by ity of en-caff 00:00: mouth [place] 50-325-40 00 every 6 Medical mg tablet (six) Branch hours as needed for Pain (scale 7-10). butalbital- 2020- No [id number] 1{tbl} Take 1 Univers acetaminoph 5-23 10-24 [...] 140 46 Medical mg/mL AtIn Branch ondansetron 2020- No 4mg Take 4 mg Univers (ZOFRAN 06-28 by mouth ity of ODT) 4 mg 21:55: 00:00 every 8 [place] disintegrat 40 :00 (eight) Medic al ing tablet hours as Branc h needed. busPIRone 2020- No 15mg Take 15 mg U nivers 15 mg 06-28 by mouth 3 ity of tablet 21:55: 00:00 (three) [place] 40 :00 times Medical daily. Branch butorphanol 2020- No 1mg 1 mg, IV U nivers (STADOL) 06-28 Push, ity of injection 1 21:41: 22:04 ONCE, 1 [place] mg 00 :00 dose, [facility] Medical 06/28/20 at Branch 1645, Routine loperamide 2020- No 2mg 2 mg, Unive rs (IMODIUM 06-28 Oral, ity of A-D) 21:30: 22:26 ONCE, 1 [place] capsule 2 00 :00 dose, Mon Medic al mg 06/28/20 at Branch 1630, Routine LORazepam Yes 1mg 1 mg, Univers (ATIVAN) 06-28 Oral, ity of tablet 1 mg 20:40: QHSPRN, 2 [place] doses, Medical Starting Branch [facility] 06/28/20 at 1540, Until Discontinu ed, Routine, Anxiety butorphanol 2020- No 1mg 1 mg, IV U nivers (STADOL) 06-28 Push, ity of injection 1 15:35: 20:07 ONCE, 1 [place] mg 00 :00 dose, [facility] 06/28/20 at Branch 1045, Routine proMETHazin Yes 25mg 25 mg, IV U nivers e 06-28 Piggyback, ity of (PHENERGAN) 13:15: Q6HPRN, [place] 25 mg in 38 Starting Medical NaCl 0.9% [facility] (NS) 50 mL 06/28/20 at IV 0815, piggyback Until Discontinu ed, Routine, Nausea and Vomiting (N/V) hydrOXYzine Yes 10mg 10 mg, Univ ers (ATARAX) 5-17 Oral, ity of tablet 10 06:58: Q6HPRN, [place] mg 54 Starting Medical Mon Branch 06/28/20 at 0158, Until Discontinu ed, Routine, Anxiety melatonin 0 Yes 3mg 3 mg, Univers (MELATIN) 5-17 Oral, QHS, ity of tablet 3 mg 02:00: First dose [place] 00 on Sun Medical 06/27/20 at Branch 2100, Until Discontinu ed, Routine butalbital- 0 Yes 1{tbl} 1 tablet, Univers acetaminoph 5-17 Oral, ity of en-caff 01:06: Q6HPRN, [place] (ESGIC) 14 Starting Medical 50-325-40 Sun Branch mg tablet 1 06/27/20 at tablet 2006, Until Discontinu ed, Routine, headache NaCl 0.9% 2020- No 250mL at 999 Univ ers (NS) bolus 5-17 05-17 mL/hr, 250 it y of infusion 00:30: 00:30 mL, IV [place] 250 mL 00 :00 Piggyback, Medical ONCE, 1 Branch dose, [place] 06/27/20 at 1930, STAT gabapentin 2020-0 Yes 600mg Take 1 Univ ers 600 mg 5-17 tablet by ity of tablet 00:00: mouth 3 [place] 00 (three) Medical times Branch daily. cyclobenzap 0 Yes 5mg Take 1 Univ ers rine 5 mg 5-17 tablet by ity o f tablet 00:00: mouth 3 [place] 00 (three) Medical times Branch daily. busPIRone 2020-0 Yes 20mg Take 2 Univer s 10 mg 5-17 tablets by ity of tablet 00:00: mouth 3 [place] 00 (three) Medical times Branch daily. LORazepam 1 2020-0 Yes 1mg Take 1 Univ ers mg tablet 5-17 tablet by ity o f 00:00: mouth at [place] 00 bedtime as Medical needed for Branch [...] [place] 00 (three) Medical times Branch daily. LORazepam [...] (three) Medical times Branch daily. LORazepam 1 2020- Yes 1mg Take 1 Univ ers mg tablet 5-17 tablet by ity o f 00:00: mouth at [place] 00 bedtime as Medical needed for Branch [...] by ity o f 00:00: mouth at [place] 00 bedtime as Medical needed for Branch [...] 00:00: mouth (three) Medical times Branch daily. gabapentin 2020-0 Yes 600mg Take 1 Univ ers 600 mg 5-17 tablet by ity of tablet 00:00: mouth (three) Medical times Branch daily. LORazepam 1 2020-0 Yes 1mg Take 1 Univ ers mg tablet 5-17 tablet by ity o f 00:00: mouth at 00 bedtime as Medical needed for Branch Anxiety or Agitation (insomnia) . busPIRone 2020-0 Yes 20mg Take 2 Univer [...] as needed for Nausea and Vomiting (N/V). ubrogepant 2020-0 Yes 50mg Take 50 mg [...] ity o f tablet 00:00: mouth 3 00 (three) Medical times Branch daily. busPIRone [...] needed for Nausea and Vomiting (N/V). cyclobenzap 2020-0 2020- No 5mg Take 1 Uni vers rine 5 mg 5-17 10-24 tablet by ity of tablet 00:00: 00:00 mouth 3 [place] 00 :00 (three) Medical times Branch daily. ubrogepant No 50mg Take 50 mg Univers (UBRELVY) 17 10-24 by mouth ity o f 50 mg Tab 00:00: 00:00 as needed [place] 00 :00 for Other Medical (Headache) Branch . ondansetron No 4mg 4 mg, Slow Univers (ZOFRAN 5 05-17 IV Push, ity of (PF)) 21:25: 13:15 Q6HPRN, [place] injection 4 04 :50 Starting Medi bernadine mg [facility] 06/27/20 at 1625, Until 06/28/20 at 0815, Routine, Nausea and Vomiting (N/V) cyclobenzap Yes 5mg 5 mg, Unive rs rine 5-16 Oral, TID, ity of (FLEXERIL) 16:00: First dose [place] tablet 5 mg 00 on [facility] l 06/27/20 at Branch 1100, Until Discontinu ed, Routine ibuprofen Yes 600mg 600 mg, Univ ers (IBU) 5-16 Oral, ity of tablet 600 15:49: Q6HPRN, [place] mg 19 Starting Medical [facility] 06/27/20 at 1049, Until Discontinu ed, Routine, Pain (scale 4-6) pantoprazol Yes 40mg 40 mg, Univ ers e 5-16 Oral, ity of (PROTONIX) 14:00: DAILY, [place] EC tablet 00 First dose Medi bernadine 40 mg on [facility] 06/27/20 at 0900, Until Discontinu ed, Routine losartan Yes 50mg 50 mg, Univers (COZAAR) 5-16 Oral, ity of tablet 50 14:00: DAILY, [place] mg 00 First dose Medical on [facility] 06/27/20 at 0900, Until Discontinu ed, Routine metoprolol Yes 25mg 25 mg, Unive rs succinate 5-16 Oral, ity of XL (TOPROL 14:00: DAILY, [place] XL) tablet 00 First dose Med ical 25 mg on [place] [facility] 06/27/20 at 0900, Until Discontinu ed azaTHIOprin Yes 150mg 150 mg, Un matt e (IMURAN) 5-16 Oral, ity of tablet 150 14:00: DAILY, [place] mg 00 First dose Medical on [facility] 06/27/20 at 0900, Until Discontinu ed, Routine heparin Yes 5000U 5,000 Univers (porcine) 06-27 Units, ity of injection 13:00: Subcutaneo [place] 5,000 Units 00 us, Q12H, Med ical First dose Branch on [place] 06/27/20 at 0800, Until Discontinu ed, Routine dicyclomine Yes 20mg 20 mg, Univ ers (BENTYL) 06-27 Oral, TID, ity o f tablet 20 13:00: First dose [place] mg [address] [facility] 06/27/20 at Branch 0800, Until Discontinu ed, Routine gabapentin 2020- No 400mg 400 mg, Un matt (NEURONTIN) 06-27 Oral, TID, i ty of capsule 400 13:00: 20:40 First dose [place] mg 00 :[address] [facility] 06/27/20 at Branch 0800, Until Discontinu ed, Routine morpHINE No 2mg 2 mg, Slow Un matt injection 2 06-27 IV Push, ity of mg 10:00: 09:07 ONCE, 1 [place] 00 :00 dose, [facility] 06/27/20 at Branch 0500, GIGI LORazepam 2020- No 2mg 2 mg, Univer s (ATIVAN) 06-27 Oral, ity of tablet 2 mg 06:00: 08:58 ONCE, 1 [place] 00 :00 dose, [facility] 06/27/20 at Branch 0100, Routine gabapentin 2020- No 600mg 600 mg, Un matt (NEURONTIN) 06-27 Oral, ity of tablet 600 05:00: 04:03 ONCE, 1 [place] mg 00 :00 dose, [facility] 06/27/20 at Branch 0000, GIGI magnesium 2020- No 2g 2 g, IV Univ ers sulfate in 06-27 Piggyback, it y of water 2 04:15: 06:10 ONCE, 1 [place] gram/50 mL 00 :00 dose, Sat Medi bernadine (4 %) 06/26/20 at [place] infusion 2 2315, GIGI g valproate 2020- No 500mg 500 mg, IV Univers (DEPACON) 06-27 Piggyback, ity of 500 mg in 04:15: 04:54 ONCE, 1 [place] D5W 00 :00 dose, [facility] Medical piggyback 06/26/20 at [facility] 2315, 100 mL LORazepam 2020- No 1mg [...] 00 :00 dose, Sat Medical 06/26/20 at [place] 2014, STAT iopamidol 2020- No [id number] 100mL 100 mL, Univers (ISOVUE 06-26-15 Intravenou ity o f 370-500 mL) 23:15: 22:07 s, ONCE, 1 [place] injection 00 :00 dose, Sat Medic al 100 mL 06/26/20 at Branch 1815, Routine ondansetron 2020- No 4mg 4 mg, Slow Univers (ZOFRAN 06-26-15 IV Push, ity of (PF)) 22:15: 21:24 ONCE, 1 [place] injection 4 00 :00 dose, Sat Med ical mg 06/26/20 at Branch 1715, GIGI butalbital- 2020- No 1{tbl} 1 tablet, Univers acetaminoph 06-2615 Oral, ONCE i ty of en-caff 22:15: 21:26 NOW, 1 [place] (ESGIC) 00 :00 dose, Sat Medical 50-325-40 06/26/20 at [facility] ch mg tablet 1 171, GIGI tablet nitroglycer 2020- No .4mg 0.4 mg, Un matt in 06-2615 Sublingual ity of (NITROSTAT) 22:15: 21:26 , ONCE, 1 [place] sublingual 00 :00 dose, Sat Medi bernadine [...] injection 06/26/20 at Bran ch 10 mg 1714, STAT diphenhydrA 2020- No 25mg 25 mg, Uni vers MINE 06-26 Slow IV ity of (BENADRYL) 21:30: 20:31 Push, [place] injection 00 :00 ONCE, 1 Medical 25 mg dose, Sat Branch 06/26/20 at 1630, STAT metoclopram 2020- No 10mg 10 mg, Uni vers marilyn HCl 06-26 Slow IV ity of (REGLAN) 21:30: 20:30 Push, [place] injection 00 :00 ONCE, 1 [...] 325mg 325 mg, Unive rs tablet 325 5-15 05-15 Oral, ity of mg 20:15: 20:30 ONCE, [...] 16:54: (three) [place] 47 times Medical daily. [place] erenumab-ao Yes inject Univ ers oe (AIMOVIG -21 under the ity of AUTOINJECTO 16:54: skin. [place] R) 140 47 Medical mg/mL AtIn Branch phenazopyri 2020- No 200mg 200 mg, U nivers dine - 04-21 Oral, ity of (PYRIDIUM) 04:15: 03:34 ONCE, 1 [place] tablet 200 00 :00 dose, Tue Medi bernadine mg 06/01/20 at Branch 2315, Routine pantoprazol 2020- No [id number] 40mg Take 1 Univers e 40 mg EC 06-02 05-22 tablet by ity of tablet 00:00: 04:59 mouth [place] 00 :00 daily for Medical 30 days. Branch pantoprazol 2020- No [id number] 40mg Take 1 Univers e 40 mg EC 06-02 tablet by ity of tablet 00:00: 04:59 mouth [place] 00 :00 daily for Medical 30 days. Branch pantoprazol 2020- No [id number] 40mg Take 1 Univers e 40 mg EC 06-02 tablet by ity of tablet 00:00: 04:59 mouth [place] 00 :00 daily for Medical 30 days. Branch HYDROcodone 2020- No [id number] 1{tbl} Take 1 U nivers -acetaminop -29 tablet by it y of hen 10-325 00:00: 04:59 mouth [place] mg tablet 00 :00 every 6 Medical (six) Branch hours as needed for Pain (scale 4-6) for up to 7 days. Indication s: acute pain proMETHazin 2020- No [id number] 25mg Take 1 Univers e 25 mg 06-02 tablet by ity of tablet 00:00: 04:59 mouth [place] 00 :00 every 6 Medical (six) Branch hours as needed for Nausea and Vomiting (N/V) for up to 5 days. 1 or 2 tablets ibuprofen Yes 600mg 600 mg, Univ ers (IBU) 4-20 Oral, Q6H, ity of tablet 600 19:15: First dose [place] mg 00 on [facility] 06/01/20 at Branch 1415, Until Discontinu ed, Routine HYDROcodone Yes 1{tbl} 1 tablet, Univers -acetaminop 4-20 Oral, ity of hen (NORCO) 19:00: Q6HPRN, [place] 10-325 mg 48 Starting Medica l tablet 1 [facility] tablet 06/01/20 at 1400, Until Discontinu ed, Routine, Pain (scale 4-6) cefpodoxime 2020- No Take by Un matt proxetil 4-20 -20 mouth. ity of (VANTIN 18:00: 00:00 [place] ORAL) 17 :00 Medical Branch proMETHazin Yes 25mg 25 mg, Univ ers e 4-20 Oral, ity of (PHENERGAN) 15:20: Q4HPRN, [place] tablet 25 12 Starting Medica l mg [facility] 06/01/20 at 1020, Until Discontinu ed, Routine, Nausea and Vomiting (N/V) acetaminoph 2020- No 1{tbl} 1 tablet, Univers en-codeine 06-01-20 Oral, ity of (TYLENOL 15:18: 19:01 Q4HPRN, [place] #3) 300-30 42 :49 Starting Medic al mg tablet 1 [facility] tablet 06/01/20 at 1018, Until [facility] 06/01/20 at 1401, Routine, Pain (scale 4-6) pantoprazol Yes 40mg 40 mg, Univ ers e 4-20 Oral, ity of (PROTONIX) 14:30: DAILY, [place] EC tablet 00 First dose Medi bernadine 40 mg on [facility] 06/01/20 at 0930, Until Discontinu ed, Routine azaTHIOprin Yes 150mg 150 mg, Un matt e (IMURAN) -20 Oral, ity of tablet 150 14:30: DAILY, [place] mg 00 First dose Medical (after Branch last modificati on) on [facility] 06/01/20 at 0930, Until Discontinu ed, Routine morpHINE Yes 2mg 2 mg, Slow Uni vers injection 2 -20 IV Push, ity of mg 08:26: Q4HPRN, [place] 30 Starting Medical [facility] 06/01/20 at 0326, Until Discontinu ed, Routine, Pain (scale 7-10) morpHINE 2020- No 2mg 2 mg, Slow Un matt injection 2 06-01-20 IV Push, ity of mg 06:00: 05:01 ONCE, 1 [place] 00 :00 dose, [facility] 06/01/20 at Branch 0100, Routine amoxicillin 0 2020- No [id number] 1{tbl} Take 1 Univers -clavulanat 06-01-28 tablet by it y of e 00:00: 04:59 mouth 2 [place] (AUGMENTIN) 00 :00 (two) Medical 875-125 mg times Branch per tablet daily for 7 days. proMETHazin 2020- No 25mg 25 mg, IV Univers e 05-31-20 Piggyback, ity of (PHENERGAN) 22:18: 15:20 Q6HPRN, [place] 25 mg in 42 :48 Starting Medical NaCl 0.9% [place] (NS) 50 mL 05/31/20 at IV 1718, piggyback Until Tu06/01/20 at 1020, Routine, Nausea and Vomiting (N/V) acetaminoph Yes 650mg 650 mg, Un matt en 05-31 Oral, ity of (TYLENOL) 15:33: Q6HPRN, [place] tablet 650 00 Starting Medic al mg Sun [place] 05/31/20 at 1033, Until Discontinu ed, Routine, Temp > 38.5 C butalbital- Yes 1{tbl} 1 tablet, Univers acetaminoph 05-31 Oral, ity of en-caff 15:27: Q6HPRN, [place] (ESGIC) 07 Starting Medical 50-325-40 [facility] Branch mg tablet 1 05/31/20 at tablet 1027, Until Discontinu ed, Routine, Pain (scale 1-3) losartan Yes 50mg 50 mg, Univers (COZAAR) 05-31 Oral, ity of tablet 50 14:00: DAILY, [place] mg 00 First dose Medical (after Branch last modificati on) on Sun05/31/20 at 0900, Until Discontinu ed, Routine metoprolol Yes 25mg 25 mg, Unive rs succinate 05-31 Oral, ity of XL (TOPROL 14:00: DAILY, [place] XL) tablet 00 First dose Med ical 25 mg (after Branch last modificati on) on Sun05/31/20 at 0900, Until Discontinu ed enoxaparin Yes 40mg 40 mg, Unive rs (LOVENOX) 05-31 Subcutaneo ity of injection 14:00: us, DAILY, [place] 40 mg 00 First dose Medical on Sun [place] 05/31/20 at 0900, Until Discontinu ed, Routine azaTHIOprin 2020- No 50mg 50 mg, Uni vers e (IMURAN) 05-3120 Oral, ity of tablet 50 14:00: 14:19 DAILY, [place] mg 00 :13 First dose Medical on Sun [place] 05/31/20 at 0900, Until Discontinu ed, Routine gabapentin 2021-0 Yes 400mg 400 mg, Uni vers (NEURONTIN) 05-31 Oral, TID, it y of 400 mg 13:00: First dose [place] 00 on [facility] 05/31/20 at Branch 0800, Until Discontinu ed, Routine dicyclomine Yes 20mg 20 mg, Univ ers (BENTYL) 05-31 Oral, TID, ity o f tablet 20 13:00: First dose [place] mg 00 on [facility] 05/31/20 at Branch 0800, Until Discontinu ed, Routine busPIRone Yes 15mg 15 mg, Univer s (BUSPAR) 05-31 Oral, TID, ity o f tablet 15 13:00: First dose [place] mg 00 on [facility] 05/31/20 at Branch 0800, Until Discontinu ed, Routine temazepam 2020- No 15mg 15 mg, Unive rs (RESTORIL) 05-31 Oral, ity of capsule 15 06:30: 05:28 ONCE, 1 [place] mg 00 :00 dose, [facility] 05/31/20 at Branch 0130, Routine proMETHazin No 25mg 25 mg, Uni vers e 05-31 Oral, ity of (PHENERGAN) 05:29: 22:06 Q6HPRN, [place] tablet 25 16 :24 Starting Medica l mg [facility] 05/31/20 at 0029, Until [facility] 05/31/20 at 1706, Routine, Nausea and [...] First dose [place] mg 00 :[address] [facility] 05/30/20 at Branch 2000, Until Discontinu ed, Routine piperacilli No 3.375g 3.375 g, Univers n-tazobacta 05-30 IV ity of m (ZOSYN) 22:45: 22:40 Piggyback, [place] 3.375 g in 00 :00 ONCE, 1 Medica l [facility] 0.9% [facility] 05/30/20 at MINI-BAG 1745, 100 mL
Reas on for Anti-Infec tive: Documented Infection< br>Documen karly Infection Site: Urine
D uration of Therapy: Other (see Comments) FENTanyl PF No 75ug 75 mcg, Un matt (SUBLIMAZE 05-30 Slow IV ity o f (PF)) 22:45: 21:55 Push, [place] injection 00 :00 ONCE, 1 Medical 75 mcg dose, [facility] 05/30/20 at 1745, STAT proMETHazin No 25mg 25 mg, IV Univers e 05-30 Piggyback, ity of (PHENERGAN) 22:45: 22:45 ONCE, 1 [place] 25 mg in 00 :00 dose, [place] Medica l NaCl 0.9% 05/30/20 at [facility] ch (NS) 50 mL 1745, 50 piggyback mL NaCl 0.9% 2020- No 1000mL at 100 Uni vers (NS) IV 05-30 04-20 mL/hr, IV ity of infusion 22:30: 19:01 Infusion, [place] 1,000 mL 00 :49 CONTINUOUS Medic al , Starting [facility] 05/30/20 at 1730, Until Sun06/01/20 at 1401, Routine ondansetron Yes 4mg 4 mg, Slow Univers (ZOFRAN 18 IV Push, ity of (PF)) 22:23: Q6HPRN, [place] injection 4 13 Starting Medi bernadine mg [facility] 05/30/20 at 1723, Until Discontinu ed, Routine, Nausea and Vomiting (N/V) morpHINE 2020- No 4mg 4 mg, Slow Un matt injection 4 05-30 IV Push, ity of mg 22:23: 22:22 Q4HPRN, [place] 07 :07 Starting Medical [facility] 05/30/20 at 1723, Until 05/31/20 at 1722, Routine, Pain (scale 7-10) HYDROcodone 2020- No 1{tbl} 1 tablet, Univers -acetaminop 05-30 Oral, ity of hen (NORCO 22:23: 15:19 Q6HPRN, [place] 5) 5-325 mg 02 :39 Starting Medi bernadine tablet 1 [facility] tablet 05/30/20 at 1723, Until 06/01/20 at 1019, Routine, Pain (scale 4-6) acetaminoph 2020- No 650mg 650 mg, U nivers en 05-30 Oral, ity of (TYLENOL) 22:22: 15:33 Q6HPRN, [place] tablet 650 55 :25 Starting Medic al mg [facility] 05/30/20 at 1722, Until 05/31/20 at 1033, Routine, Pain (scale 1-3), Temp > 38.5 C oxybutynin Yes 5mg 5 mg, Univer s chloride 05-30 Oral, ity of (DITROPAN) 22:21: TIDPRN, [place] tablet 5 mg 36 Starting Medi bernadine [facility] 05/30/20 at 1721, Until Discontinu ed, Routine, Bladder spasms iohexol 2020- No [id number] 100mL 100 mL, Univers (OMNIPAQUE 05-30 Intravenou it y of 350 21:00: 20:40 s, ONCE, 1 [place] BULK-100 00 :00 dose, [place] Medica l mL) 05/30/20 at [place] injection 1600, 100 mL Routine FENTanyl PF 2020- No 50ug 50 mcg, Un matt (SUBLIMAZE 05-30 Slow IV ity o f (PF)) 21:00: 20:35 Push, [place] injection 00 :00 ONCE, 1 Medical 50 mcg dose, [facility] 05/30/20 at 1600, Routine ondansetron No 4mg 4 mg, Slow Univers (ZOFRAN 05-30 IV Push, ity of (PF)) 21:00: 20:22 ONCE, 1 [place] injection 4 00 :00 dose, [place] [facility] ical mg 05/30/20 at Branch 1600, GIGI proMETHazin 2020- No 25mg 25 mg, IV Univers e 05-27 Piggyback, ity of (PHENERGAN) 02:45: 01:47 ONCE, 1 [place] 25 mg in 00 :00 dose, [facility] Medica l NaCl 0.9% 05/26/20 at Bran ch (NS) 50 mL 2145, 50 piggyback mL butorphanol 2020- No 2mg 2 mg, IV U nivers (STADOL) 05-27 Push, ity of injection 2 02:45: 01:33 ONCE, 1 [place] mg 00 :00 dose, [facility] Medical 05/26/20 at Branch 2145, Routine ONDANSETRON 2020- No Take by Un matt HCL (ZOFRAN 05-27 mouth. ity o f ORAL) 01:43: 00:00 [place] 58 :00 [facility] dicyclomine No 10mg Take 10 mg Univers 10 mg 05-27 by mouth. ity of capsule 01:43: 00:00 [place] 58 :00 [facility] butorphanol 2020- No 1mg 1 mg, IV U nivers (STADOL) 05-27 Push, ity of injection 1 01:30: 00:38 ONCE, 1 [place] mg 00 :00 dose, [facility] Medical 05/26/20 at Branch 2030, Routine NaCl 0.9% 2020- No 1000mL at 999 Uni vers (NS) bolus 05-26-15 mL/hr, ity of infusion 23:30: 01:49 1,000 mL, [place] 1,000 mL 00 :00 IV Medical Infusion, [place] ONCE, 1 dose, [facility] 05/26/20 at 1830, GIGI oxybutynin Yes [id number] 5mg Take 1 U nivers chloride 5 4-14 tablet by ity of mg tablet 00:00: mouth (three) Medical times Branch daily as needed for Bladder spasms. oxybutynin 1-0 Yes [id number] 5mg Take 1 U nivers chloride 5 4-14 tablet by ity of mg tablet 00:00: mouth (three) Medical times Branch daily as needed for Bladder spasms. oxybutynin 1-0 Yes [id number] 5mg Take 1 U nivers chloride 5 4-14 tablet by ity of mg tablet 00:00: mouth (three) Medical times Branch daily as needed for Bladder spasms. oxybutynin 1-0 Yes [id number] 5mg Take 1 U nivers chloride 5 4-14 tablet by ity of mg tablet 00:00: mouth (three) Medical times Branch daily as needed for Bladder spasms. oxybutynin 1-0 Yes [id number] 5mg Take 1 U nivers chloride 5 4-14 tablet by ity of mg tablet 00:00: mouth (three) Medical times Branch daily as needed for Bladder spasms. oxybutynin 1-0 Yes [id number] 5mg Take 1 U nivers chloride 5 4-14 tablet by ity of mg tablet 00:00: mouth (three) Medical times Branch daily as needed for Bladder spasms. oxybutynin 1-0 Yes [id number] 5mg Take 1 U nivers chloride 5 4-14 tablet by ity of mg tablet 00:00: mouth (three) Medical times Branch daily as needed for Bladder spasms. oxybutynin 1-0 Yes [id number] 5mg Take 1 U nivers chloride 5 4-14 tablet by ity of mg tablet 00:00: mouth (three) Medical times Branch daily as needed for Bladder spasms. oxybutynin 1-0 Yes [id number] 5mg Take 1 U nivers chloride 5 4-14 tablet by ity of mg tablet 00:00: mouth (three) Medical times Branch daily as needed for Bladder spasms. oxybutynin 1-0 Yes [id number] 5mg Take 1 U nivers chloride 5 4-14 tablet by ity of mg tablet 00:00: mouth (three) Medical times Branch daily as needed for Bladder spasms. oxybutynin 1-0 Yes [id number] 5mg Take 1 U nivers chloride 5 4-14 tablet by ity of mg tablet 00:00: mouth (three) Medical times Branch daily as needed for Bladder spasms. oxybutynin 1-0 Yes [id number] 5mg Take 1 U nivers chloride 5 4-14 tablet by ity of mg tablet 00:00: mouth (three) Medical times Branch daily as needed for Bladder spasms. oxybutynin 1-0 Yes [id number] 5mg Take 1 U nivers chloride 5 4-14 tablet by ity of mg tablet 00:00: mouth (three) Medical times Branch daily as needed for Bladder spasms. oxybutynin 1-0 Yes [id number] 5mg Take 1 U nivers chloride 5 4-14 tablet by ity of mg tablet 00:00: mouth (three) Medical times Branch daily as needed for Bladder spasms. oxybutynin 1-0 Yes [id number] 5mg Take 1 U nivers chloride 5 4-14 tablet by ity of mg tablet 00:00: mouth (three) Medical times Branch daily as needed for Bladder spasms. oxybutynin 1-0 Yes [id number] 5mg Take 1 U nivers chloride 5 4-14 tablet by ity of mg tablet 00:00: mouth (three) Medical times Branch daily as needed for Bladder spasms. oxybutynin 1-0 Yes [id number] 5mg Take 1 U nivers chloride 5 4-14 tablet by ity of mg tablet 00:00: mouth (three) Medical times Branch daily as needed for Bladder spasms. oxybutynin 1-0 Yes [id number] 5mg Take 1 U nivers chloride 5 4-14 tablet by ity of mg tablet 00:00: mouth (three) Medical times Branch daily as needed for Bladder spasms. oxybutynin 2021-0 Yes [id number] 5mg Take 1 U nivers chloride 5 4-14 tablet by ity of mg tablet 00:00: mouth (three) Medical times Branch daily as needed for Bladder spasms. oxybutynin 2021-0 Yes [id number] 5mg Take 1 U nivers chloride 5 4-14 tablet by ity of mg tablet 00:00: mouth (three) Medical times Branch daily as needed for Bladder spasms. oxybutynin 2020-0 Yes [id number] 5mg Take 1 U nivers chloride 5 4-14 tablet by ity of mg tablet 00:00: mouth (three) Medical times Branch daily as needed for Bladder spasms. oxybutynin 2020-0 Yes [id number] 5mg Take 1 U nivers chloride 5 4-14 tablet by ity of mg tablet 00:00: mouth (three) Medical times Branch daily as needed for Bladder spasms. oxybutynin 2020-0 Yes [id number] 5mg Take 1 U nivers chloride 5 4-14 tablet by ity of mg tablet 00:00: mouth (three) Medical times Branch daily as needed for Bladder spasms. oxybutynin 2020-0 Yes [id number] 5mg Take 1 U nivers chloride 5 4-14 tablet by ity of mg tablet 00:00: mouth (three) Medical times Branch daily as needed for Bladder spasms. oxybutynin 2020-0 Yes [id number] 5mg Take 1 U nivers chloride 5 4-14 tablet by ity of mg tablet 00:00: mouth (three) Medical times Branch daily as needed for Bladder spasms. oxybutynin 2020-0 Yes [id number] 5mg Take 1 U nivers chloride 5 4-14 tablet by ity of mg tablet 00:00: mouth (three) Medical times Branch daily as needed for Bladder spasms. phenazopyri 2020-0 Yes [id number] 200mg Take 1 Univers dine 200 mg 4-14 tablet by ity of tablet 00:00: mouth (three) Medical times Branch daily. proMETHazin 2020-0 Yes [id number] 25mg Take 1 Univers e 25 mg 4-14 tablet by ity of tablet 00:00: mouth 00 every 6 Medical (six) Branch hours as needed for Nausea and Vomiting (N/V). oxybutynin 2020-0 1- No [id number] 5mg Take 1 Univers chloride 5 4-14 10-24 tablet by ity of mg tablet 00:00: 00:00 mouth 3 [place] 00 :00 (three) Medical times Branch daily as needed for Bladder spasms. proMETHazin 2020- No [id number] 25mg Take 1 Univers e 25 mg 05-26 tablet by ity of tablet 00:00: 00:00 mouth [place] 00 :00 every 6 Medical (six) Branch hours as needed for Nausea and Vomiting (N/V). phenazopyri 2020- No [id number] 200mg Take 1 Univers dine 200 mg 05-26 tablet by it y of tablet 00:00: 00:00 mouth 3 [place] 00 :00 (three) Medical times Branch daily. FENTanyl PF No 50ug 50 mcg, Un matt (SUBLIMAZE 05-13 Slow IV ity o f (PF)) 21:30: 20:45 Push, [place] injection 00 :00 ONCE, 1 Medical 50 mcg dose, [facility] Branch 05/13/20 at 1630, Routine cefTRIAXone No 1000mg 1,000 mg, Univers (ROCEPHIN) 05-13 IV ity of 1,000 mg in 21:30: 21:22 Piggyback, [place] NaCl 0.9% 00 :00 ONCE, 1 Medical (NS) 50 mL dose, [facility] ch MINI-BAG 05/13/20 at 1630, 50 mL
Reas on for Anti-Infec tive: Empiric Therapy for Suspected Infection< br>Empiric Therapy Site: Urine
D uration of therapy: 72 hours proMETHazin No 25mg 25 mg, IV Univers e 05-13 Piggyback, ity of (PHENERGAN) 21:30: 20:47 ONCE, 1 [place] 25 mg in 00 :00 dose, [place] Medica l NaCl 0.9% 05/13/20 at [facility] h (NS) 50 mL 1630, 50 piggyback mL metoclopram No 10mg 10 mg, Uni vers marilyn HCl 05-13 Slow IV ity of (REGLAN) 19:15: 19:04 Push, [place] injection 00 :00 ONCE, 1 Medical 10 [...] ity of (PF)) 17:45: 16:55 ONCE, 1 [place] injection 4 00 :00 dose, [place] [facility] ical mg 05/13/20 at Branch 1245, GIGI iohexol 2020- No [id number] 120mL 120 mL, Univers (OMNIPAQUE 05-13 Intravenou [...] IV Medical Infusion, Branch ONCE, 1 dose, [facility] 05/13/20 at 1145, GIGI proMETHazin Yes [id number] 25mg Take 1 Univers e 25 mg 4-01 tablet by ity of tablet 00:00: mouth [place] 00 every 6 Medical (six) Branch hours as needed for Nausea and Vomiting (N/V). proMETHazin Yes [id number] 25mg Take 1 Univers e 25 mg 4-01 tablet by ity of tablet 00:00: mouth [place] 00 every 6 Medical (six) Branch hours as needed for Nausea and Vomiting (N/V). proMETHazin 2020- No [id number] 25mg Take 1 Univers e 25 mg 05-1314 tablet by ity of tablet 00:00: 00:00 mouth [place] 00 :00 every 6 Medical (six) Branch hours as needed for Nausea and Vomiting (N/V). cefpodoxime 2020- No [id number] 100mg Take 1 Univers 100 mg 05-1309 tablet by ity of tablet 00:00: 04:59 mouth 2 [place] 00 :00 (two) Medical times Branch daily for 7 days. erenumab-ao Yes 140mg inject 140 Univers oe (AIMOVIG 3-08 mg under ity of AUTOINJECTO 00:00: the skin [place] R) 140 00 once every Medical mg/mL AtIn month. [place] erenumab-ao Yes 140mg inject 140 Univers oe (AIMOVIG 3-08 mg under ity of AUTOINJECTO 00:00: the skin [place] R) 140 00 once every Medical mg/mL AtIn month. [place] erenumab-ao Yes 140mg inject 140 Univers oe (AIMOVIG 3-08 mg under ity of AUTOINJECTO 00:00: the skin [place] R) 140 00 once every Medical mg/mL AtIn month. [place] erenumab-ao Yes 140mg inject 140 Univers oe (AIMOVIG 3-08 mg under ity of AUTOINJECTO 00:00: the skin [place] R) 140 00 once every Medical mg/mL AtIn month. [place] erenumab-ao Yes 140mg inject 140 Univers oe (AIMOVIG 3-08 mg under ity of AUTOINJECTO 00:00: the skin [place] R) 140 00 once every Medical mg/mL AtIn month. [place] erenumab-ao Yes 140mg inject 140 Univers oe (AIMOVIG 3-08 mg under ity of AUTOINJECTO 00:00: the skin [place] R) 140 00 once every Medical mg/mL AtIn month. [place] erenumab-ao Yes 140mg inject 140 Univers oe (AIMOVIG 3-08 mg under ity of AUTOINJECTO 00:00: the skin [place] R) 140 00 once every Medical mg/mL AtIn month. [place] erenumab-ao Yes 140mg inject 140 Univers oe [...] AtIn month. Branch metoprolol Yes Take by Univ ers succinate 2-09 mouth. ity of (TOPROL XL 15:51: [place] ORAL) 34 Medical Branch metoprolol Yes Take by Univ ers succinate 2-09 mouth. ity of (TOPROL XL 15:51: [place] ORAL) 34 Medical Branch metoprolol Yes Take by [facility] ers succinate 2-09 mouth. ity of (TOPROL XL 15:51: [place] ORAL) 34 [facility] Branch metoprolol Yes Take by [facility] ers succinate 2-09 mouth. ity of (TOPROL XL 15:51: [place] ORAL) 34 [facility] metoprolol Yes Take by [facility] ers succinate 2-09 mouth. ity of (TOPROL XL 15:51: [place] ORAL) 34 [facility] metoprolol Yes Take by [facility] ers succinate 2-09 mouth. ity of (TOPROL XL 15:51: [place] ORAL) 34 [facility] metoprolol Yes Take by [facility] ers succinate 2-09 mouth. ity of (TOPROL XL 15:51: [place] ORAL) 34 [facility] metoprolol Yes Take by [facility] ers succinate 2-09 mouth. ity of (TOPROL XL 15:51: [place] ORAL) 34 [facility] metoprolol Yes Take by [facility] ers succinate 2-09 mouth. ity of (TOPROL XL 15:51: [place] ORAL) 34 Medical Branch gabapentin 2021-0 Yes [id number] 400mg Take 1 [facility] 400 mg 2-09 capsule by ity of capsule 00:00: mouth 3 (three) Medical times Branch daily. gabapentin 2021-0 Yes [id number] 400mg Take 1 [facility] 400 mg 2-09 capsule by ity of capsule 00:00: mouth 3 (three) Medical times Branch daily. gabapentin 2021-0 Yes [id number] 400mg Take 1 [facility] 400 mg 2-09 capsule by ity of capsule 00:00: mouth (three) Medical times Branch daily. gabapentin 2021-0 Yes [id number] 400mg Take 1 [facility] 400 mg 2-09 capsule by ity of capsule 00:00: mouth (three) Medical times Branch daily. gabapentin 2021-0 Yes [id number] 400mg Take 1 [facility] 400 mg 2-09 capsule by ity of capsule 00:00: mouth (three) Medical times Branch daily. gabapentin 2021-0 Yes [id number] 400mg Take 1 [facility] 400 mg 2-09 capsule by ity of capsule 00:00: mouth (three) Medical times Branch daily. gabapentin 1-0 Yes [id number] 400mg Take 1 [facility] 400 mg 2-09 capsule by ity of capsule 00:00: mouth (three) Medical times Branch daily. gabapentin 2021-0 Yes [id number] 400mg Take 1 [facility] 400 mg 2-09 capsule by ity of capsule 00:00: mouth (three) Medical times Branch daily. gabapentin 2021-0 Yes [id number] 400mg Take 1 [facility] 400 mg 2-09 capsule by ity of capsule 00:00: mouth (three) Medical times Branch daily. gabapentin 2021-0 Yes [id number] 400mg Take 1 [facility] 400 mg 2-09 capsule by ity of capsule 00:00: mouth (three) Medical times Branch daily. gabapentin 2021-0 2021- No [id number] 400mg Take 1 [facility] 400 mg 2-09 05-17 capsule by ity of capsule 00:00: 00:00 mouth 3 [place] 00 :00 (three) Medical times Branch daily. gabapentin 2021-0 Yes 300mg Take 1 [facility] ers 300 mg 2-04 capsule by ity of capsule 00:00: mouth 3 [place] 00 (three) Medical times Branch daily. gabapentin 2020- No 300mg Take 1 Uni vers 300 mg 2-03-23 capsule by ity of capsule 00:00: 00:00 mouth 3 [place] 00 :00 (three) Medical times Branch daily. gabapentin 2020- No 300mg Take 1 Uni vers 300 mg 2-05 14- capsule by ity of capsule 00:00: 00:00 mouth 3 [place] 00 :00 (three) Medical times Branch daily. FENTanyl PF 2019-02- No 50ug 50 mcg, Un matt (SUBLIMAZE 0-07 12- Slow IV ity o f (PF)) 20:00: 07:59 Push, [place] injection 00 :00 ONCE, 1 Medical 50 mcg dose, [facility] Branch 12/08/19 at 1500, STAT proMETHazin 2019-02- No 12.5mg 12.5 mg, Univers e 0-07 12- IV ity of (PHENERGAN) 18:45: 17:52 Piggyback, [place] 12.5 mg in 00 :00 ONCE, 1 Medica l NaCl 0.9% dose, [facility] h (NS) 50 mL 12/08/19 piggyback at 1345, 50 mL metoclopram 2019-02- No 10mg 10 mg, Uni vers marilyn HCl 0-07 12- Slow IV ity of (REGLAN) 17:45: 17:07 Push, [place] injection 00 :00 ONCE, 1 Medical 10 mg dose, [facility] 12/08/19 at 1245, GIGI FENTanyl PF 2019-02- No 50ug 50 mcg, Un matt (SUBLIMAZE 0-26 10- Slow IV ity o f (PF)) 17:45: 17:07 Push, [place] injection 00 :00 ONCE, 1 Medical 50 mcg dose, [facility] 12/08/19 at 1245, STAT GABAPENTIN 2019-02 Yes TAKE 1 Unive rs 300 mg 0-26 CAPSULE BY ity of capsule 00:00: MOUTH 00 THREE Medical TIMES A Branch DAY GABAPENTIN 2019-02 Yes TAKE 1 Unive rs 300 mg 0-26 CAPSULE BY ity of capsule 00:00: MOUTH 00 THREE Medical TIMES A Branch DAY proMETHazin 2019-02 Yes [id number] 25mg Take 1 Univers e 25 mg 0-26 tablet by ity of tablet 00:00: mouth [place] 00 every 6 Medical (six) Branch hours as needed for Nausea and Vomiting (N/V). GABAPENTIN 2019- Yes TAKE 1 Unive rs 300 mg 0-26 CAPSULE BY ity of capsule 00:00: MOUTH [place] 00 THREE Medical TIMES A Branch DAY proMETHazin 2020-1 Yes [id number] 25mg Take 1 Univers e 25 mg 0-26 tablet by ity of tablet 00:00: mouth [place] 00 every 6 Medical (six) Branch hours as needed for Nausea and Vomiting (N/V). GABAPENTIN 2019-02 Yes TAKE 1 Unive rs 300 mg 0-26 CAPSULE BY ity of capsule 00:00: MOUTH [place] 00 THREE Medical TIMES A Branch DAY proMETHazin 2019-02 Yes [id number] 25mg Take 1 Univers e 25 mg 0-26 tablet by ity of tablet 00:00: mouth [place] 00 every 6 Medical (six) Branch hours as needed for Nausea and Vomiting (N/V). proMETHazin 2019- Yes [id number] 25mg Take 1 Univers e 25 mg 0-26 tablet by ity of tablet 00:00: mouth [place] 00 every 6 Medical (six) Branch hours as needed for Nausea and Vomiting (N/V). proMETHazin 2019- Yes [id number] 25mg Take 1 Univers e 25 mg 0-26 tablet by ity of tablet 00:00: mouth [place] 00 every 6 Medical (six) Branch hours as needed for Nausea and Vomiting (N/V). proMETHazin 2019-1 Yes [id number] 25mg Take 1 Univers e 25 mg 0-26 tablet by ity of tablet 00:00: mouth [place] 00 every 6 Medical (six) Branch hours as needed for Nausea and Vomiting (N/V). proMETHazin 2019-1 Yes [id number] 25mg Take 1 Univers e 25 mg 0-26 tablet by ity of tablet 00:00: mouth [place] 00 every 6 Medical (six) Branch hours as needed for Nausea and Vomiting (N/V). proMETHazin 2020-1 Yes [id number] 25mg Take 1 Univers e 25 mg 0-26 tablet by ity of tablet 00:00: mouth [place] 00 every 6 Medical (six) Branch hours as needed for Nausea and Vomiting (N/V). proMETHazin 2020-1 Yes [id number] 25mg Take 1 Univers e 25 mg 0-26 tablet by ity of tablet 00:00: mouth [place] 00 every 6 Medical (six) Branch hours as needed for Nausea and Vomiting (N/V). proMETHazin 2019-02 Yes [id number] 25mg Take 1 Univers e 25 mg 0-26 tablet by ity of tablet 00:00: mouth [place] 00 every 6 Medical (six) Branch hours as needed for Nausea and Vomiting (N/V). proMETHazin 2019-02 No [id number] 25mg Take 1 Univers e 25 mg 0-26 04- tablet by ity of tablet 00:00: 00:00 mouth [place] 00 :00 every 6 Medical (six) Branch hours as needed for Nausea and Vomiting (N/V). GABAPENTIN 2019-02- No TAKE 1 Univ ers 300 mg 0-26 02-04 CAPSULE BY ity of capsule 00:00: 00:00 MOUTH [place] 00 :00 THREE Medical TIMES A Branch DAY acetaminoph 2019-02 No [id number] 1{tbl} Take 1 U nivers [...] s mg tablet 0-23 ity of 00:00: [place] 00 Medical Branch busPIRone 5 2019-02 Yes Univer s mg tablet 0-23 ity of 00:00: [place] [facility] busPIRone 5 2020- Yes Univer s mg tablet 0-23 ity of 00:00: [place] [facility] busPIRone 5 2019- Yes Univer s mg tablet 0-23 ity of 00:00: [place] [facility] busPIRone 5 2019- Yes Univer s mg tablet 0-23 ity of 00:00: [place] [facility] busPIRone 5 2019- Yes Univer s mg tablet 0-23 ity of 00:00: [place] [facility] busPIRone 5 2019- Yes Univer s mg tablet 0-23 ity of 00:00: [place] [facility] busPIRone 5 2019- Yes Univer s mg tablet 0-23 ity of 00:00: [place] [facility] busPIRone 5 2019- Yes Univer s mg tablet 0-23 ity of 00:00: [place] [facility] busPIRone 5 2019- Yes Univer s mg tablet 0-23 ity of 00:00: [place] [facility] busPIRone 5 2019- Yes Univer s mg tablet 0-23 ity of 00:00: [place] [facility] busPIRone 5 2019- Yes Univer s mg tablet 0-23 ity of 00:00: [place] [facility] busPIRone 5 2019- Yes Univer s mg tablet 0-23 ity of 00:00: [place] [facility] busPIRone 5 2019-2020- No Unive rs mg tablet 0-23 04-18 ity of 00:00: 00:00 [place] 00 :00 Medical Branch losartan 50 2020-0 Yes 50mg Take 50 mg Univers mg tablet 9-21 by mouth ity of 00:00: daily. [place] [facility] losartan 50 2020-0 Yes 50mg Take 50 mg Univers mg tablet 9-21 by mouth ity of 00:00: daily. [place] 00 Medical Branch losartan 50 2020-0 Yes 50mg Take 50 mg Univers mg tablet 9-21 by mouth ity of 00:00: daily. [place] 00 Medical Branch losartan 50 2020-0 Yes 50mg Take 50 mg Univers mg tablet 9-21 by mouth ity of 00:00: daily. [place] 00 Medical Branch losartan 50 2020-0 Yes 50mg Take 50 mg Univers mg tablet 9-21 by mouth ity of 00:00: daily. [place] [facility] Branch losartan 50 2020-0 Yes 50mg Take 50 mg Univers mg tablet 9-21 by mouth ity of 00:00: daily. [place] [facility] Branch losartan 50 2020-0 Yes 50mg Take 50 mg Univers mg tablet 9-21 by mouth ity of 00:00: daily. [place] [facility] losartan 50 2020-0 Yes 50mg Take 50 mg Univers mg tablet 9-21 by mouth ity of 00:00: daily. [place] [facility] Branch losartan 50 2020-0 Yes 50mg Take 50 mg Univers mg tablet 9-21 by mouth ity of 00:00: daily. [place] [facility] Branch losartan 50 2020-0 Yes 50mg Take 50 mg Univers mg tablet 9-21 by mouth ity of 00:00: daily. [place] [facility] losartan 50 2020-0 Yes 50mg Take 50 mg Univers mg tablet 9-21 by mouth ity of 00:00: daily. [place] [facility] losartan 50 2020-0 Yes 50mg Take 50 mg Univers mg tablet 9-21 by mouth ity of 00:00: daily. [place] [facility] losartan 50 2020-0 Yes 50mg Take 50 mg Univers mg tablet 9-21 by mouth ity of 00:00: daily. [place] [facility] losartan 50 2020-0 Yes 50mg Take 50 mg Univers mg tablet 9-21 by mouth ity of 00:00: daily. [place] [facility] losartan 50 2020-0 Yes 50mg Take 50 mg Univers mg tablet 9-21 by mouth ity of 00:00: daily. [place] [facility] losartan 50 2020-0 Yes 50mg Take 50 mg Univers mg tablet 9-21 by mouth ity of 00:00: daily. [place] [facility] losartan 50 2020-0 Yes 50mg Take 50 mg Univers mg tablet 9-21 by mouth ity of 00:00: daily. [place] [facility] losartan 50 2020-0 Yes 50mg Take 50 mg Univers mg tablet 9-21 by mouth ity of 00:00: daily. [place] [facility] losartan 50 2020-0 Yes 50mg Take 50 mg Univers mg tablet 9-21 by mouth ity of 00:00: daily. [place] [facility] losartan 50 2020-0 Yes 50mg Take 50 mg Univers mg tablet 9-21 by mouth ity of 00:00: daily. [place] [facility] losartan 50 2020-0 Yes 50mg Take 50 mg Univers mg tablet 9-21 by mouth ity of 00:00: daily. [place] [facility] losartan 50 2020-0 Yes 50mg Take 50 mg Univers mg tablet 9-21 by mouth ity of 00:00: daily. [place] [facility] Branch losartan 50 2020-0 Yes 50mg Take 50 mg Univers mg tablet 9-21 by mouth ity of 00:00: daily. [place] [facility] losartan 50 2020-0 Yes 50mg Take 50 mg Univers mg tablet 9-21 by mouth ity of 00:00: daily. [place] [facility] Branch losartan 50 2020-0 Yes 50mg Take 50 mg Univers mg tablet 9-21 by mouth ity of 00:00: daily. [place] [facility] losartan 50 2020-0 Yes 50mg Take 50 mg Univers mg tablet 9-21 by mouth ity of 00:00: daily. [place] [facility] Branch losartan 50 2020-0 Yes 50mg Take 50 mg Univers mg tablet 9-21 by mouth ity of 00:00: daily. [place] [facility] Branch losartan 50 2020-0 Yes 50mg Take 50 mg Univers mg tablet 9-21 by mouth ity of 00:00: daily. [place] [facility] Branch losartan 50 2020-0 Yes 50mg Take 50 mg Univers mg tablet 9-21 by mouth ity of 00:00: daily. [place] [facility] Branch losartan 50 2020-0 Yes 50mg Take 50 mg Univers mg tablet 9-21 by mouth ity of 00:00: daily. [place] [facility] Branch losartan 50 2020-0 Yes 50mg Take 50 mg Univers mg tablet 9-21 by mouth ity of 00:00: daily. [place] [facility] Branch losartan 50 2020-0 Yes 50mg Take 50 mg Univers mg tablet 9-21 by mouth ity of 00:00: daily. [place] [facility] Branch losartan 50 2020-0 Yes 50mg Take 50 mg Univers mg tablet 9-21 by mouth ity of 00:00: daily. [place] [facility] Branch losartan 50 2020-0 Yes 50mg Take 50 mg Univers mg tablet 9-21 by mouth ity of 00:00: daily. [place] [facility] Branch losartan 50 2020-0 Yes 50mg Take 50 mg Univers mg tablet 9-21 by mouth ity of 00:00: daily. [place] [facility] Branch losartan 50 2020-0 Yes 50mg Take 50 mg Univers mg tablet 9-21 by mouth ity of 00:00: daily. [place] [facility] losartan 50 2020-0 Yes 50mg Take 50 mg Univers mg tablet -21 by mouth ity of 00:00: daily. [place] [facility] losartan 50 2020-0 Yes 50mg Take 50 mg Univers mg tablet - by mouth ity of 00:00: daily. [place] [facility] losartan 50 2020-0 2021- No 100mg Take 100 Univers mg tablet 11-02 10-31 mg by ity of 00:00: 00:00 [...] CAPSULE BY ity of capsule 00:00: MOUTH 00 THREE Medical TIMES A Branch DAY GABAPENTIN 2020-0 Yes TAKE 1 Unive rs 300 mg 8-12 CAPSULE BY ity of capsule 00:00: MOUTH 00 THREE Medical TIMES A Branch DAY GABAPENTIN 2020-0 Yes TAKE 1 Unive rs 300 mg 8-12 CAPSULE BY ity of capsule 00:00: MOUTH 00 THREE Medical TIMES A Branch DAY GABAPENTIN 2020-0 Yes TAKE 1 Unive rs 300 mg 8-12 CAPSULE BY ity of capsule 00:00: MOUTH 00 THREE Medical TIMES A Branch DAY GABAPENTIN 2020-0 Yes TAKE 1 Unive rs 300 mg 8-12 CAPSULE BY ity of capsule 00:00: MOUTH 00 THREE Medical TIMES A Branch DAY [...] TAKE 1 Univ ers 300 mg 8-12 -26 CAPSULE BY ity of capsule 00:00: 00:00 [...] No 140mg inject 140 Univers oe (AIMOVIG 04-24 09-09 mg under ity of AUTOINJECTO 00:00: 00:00 [place]) 140 00 :00 once every Medical mg/mL AtIn month. Branch gabapentin 2019-0 2020- No 300mg Take 1 Uni vers 300 mg 04-24 04-09 capsule by ity of capsule 00:00: 00:00 mouth 3 [place] 00 :00 (three) Medical times Branch daily. divalproex 2020-0 Yes [id number] 250mg Take 1 Univers 250 mg EC 3-05 tablet by ity o f tablet 00:00: mouth [place] 00 every 12 Medical (twelve) Branch hours. divalproex 2020-0 Yes [id number] 250mg Take 1 Univers 250 mg EC 3-05 tablet by ity o f tablet 00:00: mouth [place] 00 every 12 Medical (twelve) Branch hours. divalproex 2020-0 Yes [id number] 250mg Take 1 Univers 250 mg EC 3-05 tablet by ity o f tablet 00:00: mouth [place] 00 every 12 Medical (twelve) Branch hours. divalproex 2020-0 Yes [id number] 250mg Take 1 Univers 250 mg EC 3-05 tablet by ity o f tablet 00:00: mouth [place] 00 every 12 Medical (twelve) Branch hours. divalproex 2020-0 Yes [id number] 250mg Take 1 Univers 250 mg EC 3-05 tablet by ity o f tablet 00:00: mouth [place] 00 every 12 Medical (twelve) Branch hours. divalproex 2020-0 Yes [id number] 250mg Take 1 Univers 250 mg EC 2-28 tablet by ity o f tablet 00:00: mouth [place] 00 every 12 Medical (twelve) Branch hours. divalproex 2020-0 2020- No [id number] 250mg Take 1 Univers 250 mg EC 2-28 03-05 tablet by ity of tablet 00:00: 00:00 mouth [place] 00 :00 every 12 Medical (twelve) Branch hours. divalproex 2020-0 2020- No [id number] 250mg Take 1 Univers 250 mg EC 2-28 03-05 tablet by ity of tablet 00:00: 00:00 mouth [place] 00 :00 every 12 Medical (twelve) Branch hours. divalproex 2020-0 2020- No [id number] 250mg Take 1 Univers 250 mg EC 2-28 03-05 tablet by ity of tablet 00:00: 00:00 mouth [place] 00 :00 every 12 Medical (twelve) Branch hours. divalproex 2020-0 2020- No [id number] 250mg Take 1 Univers 250 mg EC [...] ty of mg capsule 16:39: 00:00 (two) [place] 16 :00 times Medical daily. Branch divalproex 2020-0 Yes [id number] 125mg Take 1 Univers 125 mg EC 2-14 tablet by ity o f tablet 00:00: mouth [place] 00 every 12 Medical (twelve) Branch hours. divalproex 2020-0 Yes [id number] 125mg Take 1 Univers 125 mg EC 2-14 tablet by ity o f tablet 00:00: mouth [place] 00 every 12 Medical (twelve) Branch hours. divalproex 2020-0 Yes [id number] 125mg Take 1 Univers 125 mg EC 2-14 tablet by ity o f tablet 00:00: mouth [place] 00 every 12 Medical (twelve) Branch hours. divalproex 2020-0 Yes [id number] 125mg Take 1 Univers 125 mg EC 2-14 tablet by ity o f tablet 00:00: mouth [place] 00 every 12 Medical (twelve) Branch hours. divalproex 2020-0 2020- No [id number] 125mg Take 1 Univers 125 mg EC 2-14 -28 tablet by ity of tablet 00:00: 00:00 mouth [place] 00 :00 every 12 Medical (twelve) Branch hours. NaCl 0.9% 2019- Yes Infuse Univer s [...] 10mg Take 10 mg Univers 10 mg 03-23 by mouth. ity of capsule 15:24: [place] 12 Medical Branch dicyclomine 2018-02 Yes 10mg Take 10 mg Univers 10 mg 2-09 by mouth. ity of capsule 15:24: [address] dicyclomine 2018-02 Yes 10mg Take 10 mg Univers 10 mg 2-09 by mouth. ity of capsule 15:24: [address] dicyclomine 2018-02 Yes 10mg Take 10 mg Univers 10 mg 2-09 by mouth. ity of capsule 15:24: [address] dicyclomine 2018-02 Yes 10mg Take 10 mg Univers 10 mg 2-09 by mouth. ity of capsule 15:24: [address] dicyclomine 2018-02 Yes 10mg Take 10 mg Univers 10 mg 2-09 by mouth. ity of capsule 15:24: [address] dicyclomine 2018-02 Yes 10mg Take 10 mg Univers 10 mg 2-09 by mouth. ity of capsule 15:24: [address] dicyclomine 2018-02 Yes 10mg Take 10 mg Univers 10 mg 2-09 by mouth. ity of capsule 15:24: [address] dicyclomine 2018-02 Yes 10mg Take 10 mg Univers 10 mg 2-09 by mouth. ity of capsule 15:24: [address] dicyclomine 2018-02 Yes 10mg Take 10 mg Univers 10 mg 2-09 by mouth. ity of capsule 15:24: [address] dicyclomine 2018-02 Yes 10mg Take 10 mg Univers 10 mg 2-09 by mouth. ity of capsule 15:24: [address] dicyclomine 2018-02 Yes 10mg Take 10 mg Univers 10 mg 2-09 by mouth. ity of capsule 15:24: [address] dicyclomine 2018-02 Yes 10mg Take 10 mg Univers 10 mg 2-09 by mouth. ity of capsule 15:24: [address] dicyclomine 2018-02 Yes 10mg Take 10 mg Univers 10 mg 2-09 by mouth. ity of capsule 15:24: [address] dicyclomine 2018-02 Yes 10mg Take 10 mg Univers 10 mg 2-09 by mouth. ity of capsule 15:24: [address] dicyclomine 2018-02 Yes 10mg Take 10 mg Univers 10 mg 2-09 by mouth. ity of capsule 15:24: [address] dicyclomine 2018-02 Yes 10mg Take 10 mg Univers 10 mg 2-09 by mouth. ity of capsule 15:24: [address] dicyclomine 2018-02 Yes 10mg Take 10 mg Univers 10 mg 2-09 by mouth. ity of capsule 15:24: [address] dicyclomine 2018-02 Yes 10mg Take 10 mg Univers 10 mg 2-09 by mouth. ity of capsule 15:24: [address] dicyclomine 2018-02 Yes 10mg Take 10 mg Univers 10 mg 2-09 by mouth. ity of capsule 15:24: [address] dicyclomine 2018-02 Yes 10mg Take 10 mg Univers 10 mg 2-09 by mouth. ity of capsule 15:24: [address] Yes 10mg Take 10 mg Univers 10 mg 2-09 by mouth. ity of capsule 15:24: [address] dicyclomine 2018-02 Yes 10mg Take 10 mg Univers 10 mg 2-09 by mouth. ity of capsule 15:24: [address] 2018-02 Yes 10mg Take 10 mg Univers 10 mg 2-09 by mouth. ity of capsule 15:24: [address] dicyclomine 2018-02 Yes 10mg Take 10 mg Univers 10 mg 2-09 by mouth. ity of capsule 15:24: [address] 2018-02 Yes 10mg Take 10 mg Univers 10 mg 2-09 by mouth. ity of capsule 15:24: [address] dicyclomine 2018-02 Yes 10mg Take 10 mg Univers 10 mg 2-09 by mouth. ity of capsule 15:24: [address] dicyclomine 2018-02 Yes 10mg Take 10 mg Univers 10 mg 2-09 by mouth. ity of capsule 15:24: [address] dicyclomine 2018-02 Yes 10mg Take 10 mg Univers 10 mg 2-09 by mouth. ity of capsule 15:24: [address] dicyclomine 2018-02 Yes 10mg Take 10 mg Univers 10 mg 2-09 by mouth. ity of capsule 15:24: [address] dicyclomine 2018-02 Yes 10mg Take 10 mg Univers 10 mg 2-09 by mouth. ity of capsule 15:24: [address] dicyclomine 2018-02 Yes 10mg Take 10 mg Univers 10 mg 2-09 by mouth. ity of capsule 15:24: [address] ONDANSETRON 2018-02 Yes Take by Uni vers HCL (ZOFRAN 2-09 mouth. ity of ORAL) 15:22: [address] ONDANSETRON 2018-02 Yes Take by Uni vers HCL (ZOFRAN 2-09 mouth. ity of ORAL) 15:22: [address] ONDANSETRON 2018-02 Yes Take by Uni vers HCL (ZOFRAN 2-09 mouth. ity of ORAL) 15:22: [address] ONDANSETRON 2018-02 Yes Take by Uni vers HCL (ZOFRAN 2-09 mouth. ity of ORAL) 15:22: [address] 2018-02 Yes Take by Uni vers HCL (ZOFRAN 2-09 mouth. ity of ORAL) 15:22: [address] ONDANSETRON 2018-02 Yes Take by Uni vers HCL (ZOFRAN 2-09 mouth. ity of ORAL) 15:22: [address] 2018-02 Yes Take by Uni vers HCL (ZOFRAN 2-09 mouth. ity of ORAL) 15:22: [address] 2018-02 Yes Take by Uni vers HCL (ZOFRAN 2-09 mouth. ity of ORAL) 15:22: [address] ONDANSETRON 2018-02 Yes Take by Uni vers HCL (ZOFRAN 2-09 mouth. ity of ORAL) 15:22: [address] ONDANSETRON 2018-02 Yes Take by Uni vers HCL (ZOFRAN 2-09 mouth. ity of ORAL) 15:22: [address] ONDANSETRON 2018-02 Yes Take by Uni vers HCL (ZOFRAN 2-09 mouth. ity of ORAL) 15:22: [address] ONDANSETRON 2018-02 Yes Take by Uni vers HCL (ZOFRAN 2-09 mouth. ity of ORAL) 15:22: [address] ONDANSETRON 2018-02 Yes Take by Uni vers HCL (ZOFRAN 2-09 mouth. ity of ORAL) 15:22: [address] 2018-02 Yes Take by Uni vers HCL (ZOFRAN 2-09 mouth. ity of ORAL) 15:22: [address] ONDANSETRON 2018-02 Yes Take by Uni vers HCL (ZOFRAN 2-09 mouth. ity of ORAL) 15:22: [address] ONDANSETRON 2018-02 Yes Take by Uni vers HCL (ZOFRAN 2-09 mouth. ity of ORAL) 15:22: [address] ONDANSETRON 2018-02 Yes Take by Uni vers HCL (ZOFRAN 2-09 mouth. ity of ORAL) 15:22: [address] ONDANSETRON 2018-02 Yes Take by Uni vers HCL (ZOFRAN 2-09 mouth. ity of ORAL) 15:22: [address] 2018-02 Yes Take by Uni vers HCL (ZOFRAN 2-09 mouth. ity of ORAL) 15:22: [address] 2018-02 Yes Take by Uni vers HCL (ZOFRAN 2-09 mouth. ity of ORAL) 15:22: [address] 2018-02 Yes Take by Uni vers HCL (ZOFRAN 2-09 mouth. ity of ORAL) 15:22: [address] 2018-02 Yes Take by Uni vers HCL (ZOFRAN 2-09 mouth. ity of ORAL) 15:22: [address] 2018-02 Yes Take by Uni vers HCL (ZOFRAN 2-09 mouth. ity of ORAL) 15:22: [address] ONDANSETRON 2018-02 Yes Take by Uni vers HCL (ZOFRAN 2-09 mouth. ity of ORAL) 15:22: [address] 2018-02 Yes Take by Uni vers HCL (ZOFRAN 2-09 mouth. ity of ORAL) 15:22: [address] 2018-02 Yes Take by Uni vers HCL (ZOFRAN 2-09 mouth. ity of ORAL) 15:22: [address] 2018-02 Yes Take by Uni vers HCL (ZOFRAN 2-09 mouth. ity of ORAL) 15:22: [place] 05 Medical Branch ONDANSETRON 2018-02 Yes Take by Uni vers HCL (ZOFRAN 2-09 mouth. ity of ORAL) 15:22: Medical Branch ONDANSETRON 2018-02 Yes Take by Uni vers HCL (ZOFRAN 2-09 mouth. ity of ORAL) 15:22: Medical Branch ONDANSETRON 2018-02 Yes Take by Uni vers HCL (ZOFRAN 2-09 mouth. ity of ORAL) 15:22: Medical Branch ONDANSETRON 2018-02 Yes Take by Uni vers HCL (ZOFRAN 2-09 mouth. ity of ORAL) 15:22: Medical Branch ONDANSETRON 2018-02 Yes Take by Uni vers HCL (ZOFRAN 2-09 mouth. ity of ORAL) 15:22: Medical Branch azaTHIOprin 2018-02 Yes 150mg Take [...] of tablet 00:00: mouth [place] 00 daily. [facility] Branch azaTHIOprin 2018-02 Yes 150mg Take 150 [...] of tablet 00:00: mouth [place] 00 daily. [facility] Branch azaTHIOprin 2018-02 Yes 150mg Take 150 U nivers e 50 mg 2-02 mg by ity of tablet 00:00: mouth [place] 00 daily. Medical Branch azaTHIOprin 2019-1 Yes 150mg Take 150 U nivers e 50 mg 2-02 mg by ity of tablet 00:00: mouth [place] daily. Medical Branch azaTHIOprin 2019-1 Yes 150mg Take 150 U nivers e 50 mg 2-02 mg by ity of tablet 00:00: mouth [place] 00 daily. Medical Branch azaTHIOprin 2019-1 Yes Univer s e 50 mg 2-02 ity of tablet 00:00: [place] 00 Medical Branch azaTHIOprin 2019-1 Yes Univer s e 50 mg 2-02 ity of tablet 00:00: [place] [facility] azaTHIOprin 2019-1 Yes Univer s e 50 mg 2-02 ity of tablet 00:00: [place] [address] Medical Branch azaTHIOprin 2019-1 Yes Univer s e 50 mg 2-02 ity of tablet 00:00: [place] [address] Medical Branch azaTHIOprin 2019-1 Yes Univer s e 50 mg 2-02 ity of tablet 00:00: [place] [address] Medical Branch azaTHIOprin 2019-1 Yes Univer s e 50 mg 2-02 ity of tablet 00:00: [place] [address] Medical Branch azaTHIOprin 2019-1 Yes Univer s e 50 mg 2-02 ity of tablet 00:00: [place] [address] Medical Branch azaTHIOprin 2019-1 Yes Univer s e 50 mg 2-02 ity of tablet 00:00: [place] [address] [facility] azaTHIOprin 2019-1 Yes Univer s e 50 mg 2-02 ity of tablet 00:00: [place] [address] [facility] azaTHIOprin 2019-1 Yes Univer s e 50 mg 2-02 ity of tablet 00:00: [place] [address] [facility] azaTHIOprin 2019-1 Yes Univer s e 50 mg 2-02 ity of tablet 00:00: [place] [address] [facility] azaTHIOprin 2019-1 Yes Univer s e 50 mg 2-02 ity of tablet 00:00: [place] [address] [facility] azaTHIOprin 2019-1 Yes Univer s e 50 mg 2-02 ity of tablet 00:00: [place] [address] [facility] azaTHIOprin 2019-1 Yes Univer s e 50 mg 2-02 ity of tablet 00:00: [place] [address] [facility] azaTHIOprin 2019-1 Yes Univer s e 50 mg 2-02 ity of tablet 00:00: [place] [address] [facility] azaTHIOprin 2019-1 Yes Univer s e 50 mg 2-02 ity of tablet 00:00: [place] [address] [facility] azaTHIOprin 2019-1 Yes Univer s e 50 mg 2-02 ity of tablet 00:00: [place] [address] [facility] azaTHIOprin 2019-1 Yes Univer s e 50 mg 2-02 ity of tablet 00:00: [place] [address] [facility] azaTHIOprin 2019-1 Yes Univer s e 50 mg 2-02 ity of tablet 00:00: [place] [address] [facility] azaTHIOprin 2019-1 Yes Univer s e 50 mg 2-02 ity of tablet 00:00: [place] [address] [facility] azaTHIOprin 2019-1 Yes Univer s e 50 mg 2-02 ity of tablet 00:00: [place] [address] [facility] azaTHIOprin 2019-1 Yes Univer s e 50 mg 2-02 ity of tablet 00:00: [place] [address] [facility] azaTHIOprin 2019-1 Yes Univer s e 50 mg 2-02 ity of tablet 00:00: [place] [address] [facility] azaTHIOprin 2019-1 Yes Univer s e 50 mg 2-02 ity of tablet 00:00: [place] [address] [facility] azaTHIOprin 2019-1 Yes Univer s e 50 mg 2-02 ity of tablet 00:00: [place] [address] [facility] azaTHIOprin 2019-1 Yes Univer s e 50 mg 2-02 ity of tablet 00:00: [place] [address] [facility] azaTHIOprin 2019-1 Yes Univer s e 50 mg 2-02 ity of tablet 00:00: [place] [address] [facility] azaTHIOprin 2019-1 Yes Univer s e 50 mg 2-02 ity of tablet 00:00: [place] [address] [facility] azaTHIOprin 2019-1 Yes Univer s e 50 mg 2-02 ity of tablet 00:00: [place] [address] [facility] azaTHIOprin 2019-1 Yes Univer s e 50 mg 2-02 ity of tablet 00:00: [place] [address] [facility] azaTHIOprin 2019-1 Yes Univer s e 50 mg 2-02 ity of tablet 00:00: [place] [address] [facility] azaTHIOprin 2019-1 Yes Univer s e 50 mg 2-02 ity of tablet 00:00: [place] [address] [facility] azaTHIOprin 2019-1 Yes Univer s e 50 mg 2-02 ity of tablet 00:00: [place] [address] [facility] azaTHIOprin 2019-1 2021- No 150mg Take 150 Univers e 50 mg 2-02 10-24 mg by ity of tablet 00:00: 00:00 mouth [place] 00 :00 daily. Medical Branch ibuprofen 2018- Yes [id number] 600mg Take 1 [facility] 600 mg 1-13 tablet by ity of tablet 00:00: mouth [place] 00 every 6 Medical (six) Branch hours as needed for Pain (scale 4-6). ibuprofen 2018- Yes [id number] 600mg Take 1 [facility] 600 mg 1-13 tablet by ity of tablet 00:00: mouth [place] 00 every 6 Medical (six) Branch hours as needed for Pain (scale 4-6). ibuprofen 2018-02 Yes [id number] 600mg Take 1 [facility] 600 mg 1-13 tablet by ity of tablet 00:00: mouth [place] 00 every 6 Medical (six) Branch hours as needed for Pain (scale 4-6). ibuprofen 2018-02 Yes [id number] 600mg Take 1 [facility] 600 mg 1-13 tablet by ity of tablet 00:00: mouth [place] 00 every 6 Medical (six) Branch hours as needed for Pain (scale 4-6). ibuprofen 2018-02 Yes [id number] 600mg Take 1 [facility] 600 mg 1-13 tablet by ity of tablet 00:00: mouth [place] 00 every 6 Medical (six) Branch hours as needed for Pain (scale 4-6). ibuprofen 2018-02 Yes [id number] 600mg Take 1 [facility] 600 mg 1-13 tablet by ity of tablet 00:00: mouth [place] 00 every 6 Medical (six) Branch hours as needed for Pain (scale 4-6). ibuprofen 2018-02 Yes [id number] 600mg Take 1 [facility] 600 mg 1-13 tablet by ity of tablet 00:00: mouth [place] 00 every 6 Medical (six) Branch hours as needed for Pain (scale 4-6). ibuprofen 2018- Yes [id number] 600mg Take 1 [facility] 600 mg 1-13 tablet by ity of tablet 00:00: mouth [place] 00 every 6 Medical (six) Branch hours as needed for Pain (scale 4-6). ibuprofen 2018- Yes [id number] 600mg Take 1 [facility] 600 mg 1-13 tablet by ity of tablet 00:00: mouth [place] 00 every 6 Medical (six) Branch hours as needed for Pain (scale 4-6). ibuprofen 2018- Yes [id number] 600mg Take 1 [facility] 600 mg 1-13 tablet by ity of tablet 00:00: mouth [place] 00 every 6 Medical (six) Branch hours as needed for Pain (scale 4-6). ibuprofen 2018-02 Yes [id number] 600mg Take 1 [facility] 600 mg 1-13 tablet by ity of tablet 00:00: mouth [place] 00 every 6 Medical (six) Branch hours as needed for Pain (scale 4-6). ibuprofen 2018-02 Yes [id number] 600mg Take 1 [facility] 600 mg 1-13 tablet by ity of tablet 00:00: mouth [place] 00 every 6 Medical (six) Branch hours as needed for Pain (scale 4-6). ibuprofen 2018-02 Yes [id number] 600mg Take 1 [facility] 600 mg 1-13 tablet by ity of tablet 00:00: mouth [place] 00 every 6 Medical (six) Branch hours as needed for Pain (scale 4-6). ibuprofen 2018-02 Yes [id number] 600mg Take 1 [facility] 600 mg 1-13 tablet by ity of tablet 00:00: mouth [place] 00 every 6 Medical (six) Branch hours as needed for Pain (scale 4-6). ibuprofen 2018-02 Yes [id number] 600mg Take 1 [facility] 600 mg 1-13 tablet by ity of tablet 00:00: mouth [place] 00 every 6 Medical (six) Branch hours as needed for Pain (scale 4-6). ibuprofen 2018-02 Yes [id number] 600mg Take 1 [facility] 600 mg 1-13 tablet by ity of tablet 00:00: mouth [place] 00 every 6 Medical (six) Branch hours as needed for Pain (scale 4-6). ibuprofen 2018-02 Yes [id number] 600mg Take 1 [facility] 600 mg 1-13 tablet by ity of tablet 00:00: mouth [place] 00 every 6 Medical (six) Branch hours as needed for Pain (scale 4-6). ibuprofen 2018-02 Yes [id number] 600mg Take 1 [facility] 600 mg 1-13 tablet by ity of tablet 00:00: mouth [place] 00 every 6 Medical (six) Branch hours as needed for Pain (scale 4-6). ibuprofen 2018- Yes [id number] 600mg Take 1 [facility] 600 mg 1-13 tablet by ity of tablet 00:00: mouth [place] 00 every 6 Medical (six) Branch hours as needed for Pain (scale 4-6). ibuprofen 2018- Yes [id number] 600mg Take 1 [facility] 600 mg 1-13 tablet by ity of tablet 00:00: mouth [place] 00 every 6 Medical (six) Branch hours as needed for Pain (scale 4-6). ibuprofen 2018-02 Yes [id number] 600mg Take 1 [facility] 600 mg 1-13 tablet by ity of tablet 00:00: mouth [place] 00 every 6 Medical (six) Branch hours as needed for Pain (scale 4-6). ibuprofen 2018-02 Yes [id number] 600mg Take 1 [facility] 600 mg 1-13 tablet by ity of tablet 00:00: mouth [place] 00 every 6 Medical (six) Branch hours as needed for Pain (scale 4-6). ibuprofen 2018-02 Yes [id number] 600mg Take 1 [facility] 600 mg 1-13 tablet by ity of tablet 00:00: mouth [place] 00 every 6 Medical (six) Branch hours as needed for Pain (scale 4-6). ibuprofen 2018-02 Yes [id number] 600mg Take 1 [facility] 600 mg 1-13 tablet by ity of tablet 00:00: mouth [place] 00 every 6 Medical (six) Branch hours as needed for Pain (scale 4-6). ibuprofen 2018-02 Yes [id number] 600mg Take 1 [facility] 600 mg 1-13 tablet by ity of tablet 00:00: mouth [place] 00 every 6 Medical (six) Branch hours as needed for Pain (scale 4-6). ibuprofen 2018-02 Yes [id number] 600mg Take 1 [facility] 600 mg 1-13 tablet by ity of tablet 00:00: mouth [place] 00 every 6 Medical (six) Branch hours as needed for Pain (scale 4-6). ibuprofen 2018-02 Yes [id number] 600mg Take 1 [facility] 600 mg 1-13 tablet by ity of tablet 00:00: mouth [place] 00 every 6 Medical (six) Branch hours as needed for Pain (scale 4-6). ibuprofen 2018- Yes [id number] 600mg Take 1 [facility] 600 mg 1-13 tablet by ity of tablet 00:00: mouth [place] 00 every 6 Medical (six) Branch hours as needed for Pain (scale 4-6). ibuprofen 2018- Yes [id number] 600mg Take 1 [facility] 600 mg 1-13 tablet by ity of tablet 00:00: mouth [place] 00 every 6 Medical (six) Branch hours as needed for Pain (scale 4-6). ibuprofen 2018- Yes [id number] 600mg Take 1 [facility] 600 mg 1-13 tablet by ity of tablet 00:00: mouth [place] 00 every 6 Medical (six) Branch hours as needed for Pain (scale 4-6). ibuprofen 2018-02 Yes [id number] 600mg Take 1 [facility] 600 mg 1-13 tablet by ity of tablet 00:00: mouth [place] 00 every 6 Medical (six) Branch hours as needed for Pain (scale 4-6). ibuprofen 2018-02 Yes [id number] 600mg Take 1 [facility] 600 mg 1-13 tablet by ity of tablet 00:00: mouth [place] 00 every 6 Medical (six) Branch hours as needed for Pain (scale 4-6). ibuprofen 2018-02 Yes [id number] 600mg Take 1 [facility] 600 mg 1-13 tablet by ity of tablet 00:00: mouth [place] 00 every 6 Medical (six) Branch hours as needed for Pain (scale 4-6). ibuprofen 2018-02 Yes [id number] 600mg Take 1 [facility] 600 mg 1-13 tablet by ity of tablet 00:00: mouth [place] 00 every 6 Medical (six) Branch hours as needed for Pain (scale 4-6). ibuprofen 2018-02 Yes [id number] 600mg Take 1 [facility] 600 mg 1-13 tablet by ity of tablet 00:00: mouth [place] 00 every 6 Medical (six) Branch hours as needed for Pain (scale 4-6). ibuprofen 2018-02 Yes [id number] 600mg Take 1 [facility] 600 mg 1-13 tablet by ity of tablet 00:00: mouth [place] 00 every 6 Medical (six) Branch hours as needed for Pain (scale 4-6). ibuprofen 2018-02 Yes [id number] 600mg Take 1 [facility] 600 mg 1-13 tablet by ity of tablet 00:00: mouth [place] 00 every 6 Medical (six) Branch hours as needed for Pain (scale 4-6). ibuprofen 2018-02 Yes [id number] 600mg Take 1 [facility] 600 mg 1-13 tablet by ity of tablet 00:00: mouth [place] 00 every 6 Medical (six) Branch hours as needed for Pain (scale 4-6). ibuprofen 2018-02 Yes [id number] 600mg Take 1 [facility] 600 mg 1-13 tablet by ity of tablet 00:00: mouth [place] 00 every 6 Medical (six) Branch hours as needed for Pain (scale 4-6). ibuprofen 2018- Yes [id number] 600mg Take 1 [facility] 600 mg 1-13 tablet by ity of tablet 00:00: mouth [place] 00 every 6 Medical (six) Branch hours as needed for Pain (scale 4-6). ibuprofen 2018- Yes [id number] 600mg Take 1 [facility] 600 mg 1-13 tablet by ity of tablet 00:00: mouth [place] 00 every 6 Medical (six) Branch hours as needed for Pain (scale 4-6). ibuprofen 2018-02 Yes [id number] 600mg Take 1 [facility] 600 mg 1-13 tablet by ity of tablet 00:00: mouth [place] 00 every 6 Medical (six) Branch hours as needed for Pain (scale 4-6). ibuprofen 2018-02 Yes [id number] 600mg Take 1 [facility] 600 mg 1-13 tablet by ity of tablet 00:00: mouth [place] 00 every 6 Medical (six) Branch hours as needed for Pain (scale 4-6). ibuprofen 2018-02 Yes [id number] 600mg Take 1 [facility] 600 mg 1-13 tablet by ity of tablet 00:00: mouth [place] 00 every 6 Medical (six) Branch hours as needed for Pain (scale 4-6). ibuprofen 2018-02 Yes [id number] 600mg Take 1 [facility] 600 mg 1-13 tablet by ity of tablet 00:00: mouth [place] 00 every 6 Medical (six) Branch hours as needed for Pain (scale 4-6). ibuprofen 2018-02 Yes [id number] 600mg Take 1 [facility] 600 mg 1-13 tablet by ity of tablet 00:00: mouth [place] 00 every 6 Medical (six) Branch hours as needed for Pain (scale 4-6). ibuprofen 2018-02 Yes [id number] 600mg Take 1 [facility] 600 mg 1-13 tablet by ity of tablet 00:00: mouth [place] 00 every 6 Medical (six) Branch hours as needed for Pain (scale 4-6). ibuprofen 2018- Yes [id number] 600mg Take 1 [facility] 600 mg 1-13 tablet by ity of tablet 00:00: mouth [place] 00 every 6 Medical (six) Branch hours as needed for Pain (scale 4-6). ibuprofen 2018-02 Yes [id number] 600mg Take 1 [facility] 600 mg 1-13 tablet by ity of tablet 00:00: mouth [place] 00 every 6 Medical (six) Branch hours as needed for Pain (scale 4-6). ibuprofen 2018-02 Yes [id number] 600mg Take 1 [facility] 600 mg 1-13 tablet by ity of tablet 00:00: mouth [place] 00 every 6 Medical (six) Branch hours as needed for Pain (scale 4-6). ibuprofen 2018-02 Yes [id number] 600mg Take 1 [facility] 600 mg 1-13 tablet by ity of tablet 00:00: mouth [place] 00 every 6 Medical (six) Branch hours as needed for Pain (scale 4-6). ibuprofen 2018-02 Yes [id number] 600mg Take 1 [facility] 600 mg 1-13 tablet by ity of tablet 00:00: mouth [place] 00 every 6 Medical (six) Branch hours as needed for Pain (scale 4-6). ibuprofen 2018-02 Yes [id number] 600mg Take 1 [facility] 600 mg 1-13 tablet by ity of tablet 00:00: mouth [place] 00 every 6 Medical (six) Branch hours as needed for Pain (scale 4-6). ibuprofen 2018-02 Yes [id number] 600mg Take 1 [facility] 600 mg 1-13 tablet by ity of tablet 00:00: mouth [place] 00 every 6 Medical (six) Branch hours as needed for Pain (scale 4-6). ibuprofen 2018-02 Yes [id number] 600mg Take 1 [facility] 600 mg 1-13 tablet by ity of tablet 00:00: mouth [place] 00 every 6 Medical (six) Branch hours as needed for Pain (scale 4-6). ibuprofen 2018-02 Yes [id number] 600mg Take 1 [facility] 600 mg 1-13 tablet by ity of tablet 00:00: mouth [place] 00 every 6 Medical (six) Branch hours as needed for Pain (scale 4-6). ibuprofen 2018-02 Yes [id number] 600mg Take 1 [facility] 600 mg 1-13 tablet by ity of tablet 00:00: mouth [place] 00 every 6 Medical (six) Branch hours as needed for Pain (scale 4-6). ibuprofen 2018-02 Yes [id number] 600mg Take 1 [facility] 600 mg 1-13 tablet by ity of tablet 00:00: mouth [place] 00 every 6 Medical (six) Branch hours as needed for Pain (scale 4-6). ibuprofen 2018-02- No [id number] 600mg Take 1 [facility] 600 mg 1-13 10-24 tablet by ity of tablet 00:00: 00:00 mouth [place] 00 :00 every 6 Medical (six) Branch hours as needed for Pain (scale 4-6). cyclobenzap 2018-02- No [id number] 10mg Take 1 Univers rine 10 mg 02-24 tablet by ity of tablet 00:00: 00:00 mouth 3 [place] 00 :00 (three) Medical times Branch daily. cyclobenzap 2018-02- No [id number] 10mg Take 1 [facility] rine 10 mg 02-24 tablet by ity of tablet 00:00: 00:00 mouth 3 [place] 00 :00 (three) Medical times Branch daily. Bactrim DS Bactrim DS 2017- No [place] 1 tablet [facility] 08-24 [facility] 00:00: 00:00 - [facility] 00 :00 [facility] Pyridium Pyridium 2017- No [place] 1 tablet Common 08-24 [facility] 00:00: 00:00 meals - [facility] 00 :00 [facility] hydrOXYzine 2020- No TAKE 1 Uni vers (ATARAX) 25 09-0114 TABLET BY it y of mg tablet 00:00: 00:00 MOUTH [place] 00 :00 EVERY 8 Medical HOURS Branch NEEDED FOR ANXIETY hydrOXYzine 2020- No TAKE 1 Uni vers (ATARAX) 25 09-0114 TABLET BY it y of mg tablet 00:00: 00:00 MOUTH [place] 00 :00 EVERY 8 Medical HOURS Branch NEEDED FOR ANXIETY sodium,pota Yes [id number] Please see [facility] [place] 6-16 instructio ity of sulfates 00:00: [facility] (SUPREP 00 provided. Medical BOWEL PREP Branch KIT) 17.5-3.13-1 .6 gram SolR sodium,pota Yes [id number] Please see [facility] [place] 6-16 instructio ity of sulfates 00:00: ns [place] (SUPREP 00 provided. Medical BOWEL PREP Branch KIT) 17.5-3.13-1 .6 gram SolR sodium,pota Yes [id number] Please see [facility] [place] 6-16 instructio ity of sulfates 00:00: [facility] (SUPREP 00 provided. Medical BOWEL PREP Branch KIT) 17.5-3.13-1 .6 gram SolR sodium,pota 2016-0 Yes [id number] Please see [facility] [place] 6-16 instructio ity of sulfates 00:00: ns [place] (SUPREP 00 provided. Medical BOWEL PREP Branch KIT) 17.5-3.13-1 .6 gram SolR sodium,pota 2016-0 Yes [id number] Please see [facility] [place] 6-16 instructio ity of sulfates 00:00: ns [place] (SUPREP 00 provided. Medical BOWEL PREP Branch KIT) 17.5-3.13-1 .6 gram SolR sodium,pota 2016-0 Yes [id number] Please see [facility] [place] 6-16 instructio ity of sulfates 00:00: [facility] (SUPREP 00 provided. Medical BOWEL PREP Branch KIT) 17.5-3.13-1 .6 gram SolR sodium,pota 2016-0 Yes [id number] Please see [facility] [place] 6-16 instructio ity of sulfates 00:00: [facility] (SUPREP 00 provided. Medical BOWEL PREP Branch KIT) 17.5-3.13-1 .6 gram SolR sodium,pota 2016-0 Yes [id number] Please see [facility] [place] 6-16 instructio ity of sulfates 00:00: [facility] (SUPREP 00 provided. Medical BOWEL PREP Branch KIT) 17.5-3.13-1 .6 gram SolR sodium,pota 2016-0 Yes [id number] Please see [facility] [place] 6-16 instructio ity of sulfates 00:00: [facility] (SUPREP 00 provided. Medical BOWEL PREP Branch KIT) 17.5-3.13-1 .6 gram SolR sodium,pota 2016-0 Yes [id number] Please see [facility] [place] 6-16 instructio ity of sulfates 00:00: [facility] (SUPREP 00 provided. Medical BOWEL PREP Branch KIT) 17.5-3.13-1 .6 gram SolR sodium,pota 2016-0 Yes [id number] Please see [facility] [place] 6-16 instructio ity of sulfates 00:00: ns [place] (SUPREP 00 provided. Medical BOWEL PREP Branch KIT) 17.5-3.13-1 .6 gram SolR sodium,pota 2016-0 Yes [id number] Please see [facility] 6-16 instructio ity of sulfates 00:00: ns [place] (SUPREP 00 provided. Medical BOWEL PREP Branch KIT) 17.5-3.13-1 .6 gram SolR sodium,pota 2016-0 Yes [id number] Please see [facility] 6-16 instructio ity of sulfates 00:00: ns [place] (SUPREP 00 provided. Medical BOWEL PREP Branch KIT) 17.5-3.13-1 .6 gram SolR sodium,pota 2016-0 Yes [id number] Please see [facility] 6-16 instructio ity of sulfates 00:00: ns [place] (SUPREP 00 provided. Medical BOWEL PREP Branch KIT) 17.5-3.13-1 .6 gram SolR sodium,pota 2016-0 Yes [id number] Please see [facility] 6-16 instructio ity of sulfates 00:00: ns [place] (SUPREP 00 provided. Medical BOWEL PREP Branch KIT) 17.5-3.13-1 .6 gram SolR sodium,pota 2016-0 Yes [id number] Please see [facility] 6-16 instructio ity of sulfates 00:00: ns [place] (SUPREP 00 provided. Medical BOWEL PREP Branch KIT) 17.5-3.13-1 .6 gram SolR sodium,pota 2016-0 Yes [id number] Please see [facility] 6-16 instructio ity of sulfates 00:00: ns [place] (SUPREP 00 provided. Medical BOWEL PREP Branch KIT) 17.5-3.13-1 .6 gram SolR sodium,pota 2016-0 Yes [id number] Please see [facility] 616 instructio ity of sulfates 00:00: ns [place] (SUPREP 00 provided. Medical BOWEL PREP Branch KIT) 17.5-3.13-1 .6 gram SolR sodium,pota 2016-0 Yes [id number] Please see [facility] 6-16 instructio ity of sulfates 00:00: ns [place] (SUPREP 00 provided. Medical BOWEL PREP Branch KIT) 17.5-3.13-1 .6 gram SolR sodium,pota 2016-0 Yes [id number] Please see [facility] 6-16 instructio ity of sulfates 00:00: ns [place] (SUPREP 00 provided. Medical BOWEL PREP Branch KIT) 17.5-3.13-1 .6 gram SolR sodium,pota 2016-0 Yes [id number] Please see [facility] 6-16 instructio ity of sulfates 00:00: [facility] (SUPREP 00 provided. Medical BOWEL PREP Branch KIT) 17.5-3.13-1 .6 gram SolR sodium,pota 2016-0 Yes [id number] Please see [facility] 6-16 instructio ity of sulfates 00:00: [facility] (SUPREP 00 provided. Medical BOWEL PREP Branch KIT) 17.5-3.13-1 .6 gram SolR sodium,pota 2016-0 Yes [id number] Please see [facility] 6-16 instructio ity of sulfates 00:00: [facility] (SUPREP 00 provided. Medical BOWEL PREP Branch KIT) 17.5-3.13-1 .6 gram SolR sodium,pota 2016-0 Yes [id number] Please see [facility] 6-16 instructio ity of sulfates 00:00: [facility] (SUPREP 00 provided. Medical BOWEL PREP Branch KIT) 17.5-3.13-1 .6 gram SolR sodium,pota 2016-0 Yes [id number] Please see [facility] 6-16 instructio ity of sulfates 00:00: [facility] (SUPREP 00 provided. Medical BOWEL PREP Branch KIT) 17.5-3.13-1 .6 gram SolR sodium,pota 2016-0 Yes [id number] Please see [facility] 616 instructio ity of sulfates 00:00: [facility] (SUPREP 00 provided. Medical BOWEL PREP Branch KIT) 17.5-3.13-1 .6 gram SolR sodium,pota 2016-0 Yes [id number] Please see [facility] 6-16 instructio ity of sulfates 00:00: [facility] (SUPREP 00 provided. Medical BOWEL PREP Branch KIT) 17.5-3.13-1 .6 gram SolR sodium,pota 2016-0 Yes [id number] Please see [facility] 616 instructio ity of sulfates 00:00: [facility] (SUPREP 00 provided. Medical BOWEL PREP Branch KIT) 17.5-3.13-1 .6 gram SolR sodium,pota Yes [id number] Please see [facility] [place] 6-16 instructio ity of sulfates 00:00: [facility] (SUPREP 00 provided. Medical BOWEL PREP Branch KIT) 17.5-3.13-1 .6 gram SolR sodium,pota Yes [id number] Please see [facility] [place] 6-16 instructio ity of sulfates 00:00: [facility] (SUPREP 00 provided. Medical BOWEL PREP Branch KIT) 17.5-3.13-1 .6 gram SolR sodium,pota Yes [id number] Please see [facility] [place] 6-16 instructio ity of sulfates 00:00: [facility] (SUPREP 00 provided. Medical BOWEL PREP Branch KIT) 17.5-3.13-1 .6 gram SolR sodium,pota Yes [id number] Please see [facility] 6-16 instructio ity of sulfates 00:00: [facility] (SUPREP 00 provided. Medical BOWEL PREP Branch KIT) 17.5-3.13-1 .6 gram SolR sodium,pota Yes [id number] Please see [facility] 6-16 instructio ity of sulfates 00:00: [facility] (SUPREP 00 provided. Medical BOWEL PREP Branch KIT) 17.5-3.13-1 .6 gram SolR sodium,pota 2021- No [id number] Please see [facility] [place] 6-16 04-18 instructio ity of sulfates 00:00: 00:00 [facility] (SUPREP 00 :00 provided. Medical BOWEL PREP Branch KIT) 17.5-3.13-1 .6 gram SolR buprenorphi 2020- No 15ug Apply 15 U nivers ne 5-27 02-14 mcg to ity of (BUTRANS) 00:00: 00:00 skin every [place] 15 mcg/hour 00 :00 24 Medical PTWK (twenty-fo Branch ur) hours. buprenorphi 2020- No 15ug Apply 15 U nivers ne 5-27 02-14 mcg to ity of (BUTRANS) 00:00: 00:00 skin every [place] 15 mcg/hour 00 :00 24 Medical PTWK ([facility]- Branch ur) hours. ondansetron [id number] Yes Univer s (ZOFRAN) 4 5-18 ity of mg tablet 00:00: [facility] Branch ondansetron 2016-0 Yes Univer s (ZOFRAN) 4 5-18 ity of mg tablet 00:00: [facility] Branch ondansetron 2016-0 Yes Univer s (ZOFRAN) 4 5-18 ity of mg tablet 00:00: [facility] ondansetron [id number] Yes Univer s (ZOFRAN) 4 5-18 ity of mg tablet 00:00: [facility] ondansetron 20160 Yes Univer s (ZOFRAN) 4 5-18 ity of mg tablet 00:00: [facility] ondansetron 2016-0 Yes Univer s (ZOFRAN) 4 5-18 ity of mg tablet 00:00: [facility] ondansetron 2016-0 Yes Univer s (ZOFRAN) 4 5-18 ity of mg tablet 00:00: [facility] Branch ondansetron 20160 Yes Univer s (ZOFRAN) 4 5-18 ity of mg tablet 00:00: [facility] ondansetron 2016-0 Yes Univer s (ZOFRAN) 4 5-18 ity of mg tablet 00:00: [facility] ondansetron 20160 Yes Univer s (ZOFRAN) 4 5-18 ity of mg tablet 00:00: [facility] ondansetron 2016-0 Yes Univer s (ZOFRAN) 4 5-18 ity of mg tablet 00:00: [facility] ondansetron 20160 Yes Univer s (ZOFRAN) 4 5-18 ity of mg tablet 00:00: [facility] ondansetron 2016-0 Yes Univer s (ZOFRAN) 4 5-18 ity of mg tablet 00:00: [facility] ondansetron 2016-0 Yes Univer s (ZOFRAN) 4 5-18 ity of mg tablet 00:00: [facility] ondansetron 2016-0 Yes Univer s (ZOFRAN) 4 [...] 5-18 ity of mg tablet 00:00: [facility] ondansetron Yes Univer s (ZOFRAN) 4 5-18 ity of mg tablet 00:00: [place] [facility] ondansetron 2015-0 Yes Univer s (ZOFRAN) 4 5-18 ity of mg tablet 00:00: [place] 00 [facility] ondansetron 2020- No Unive rs (ZOFRAN) 4 5-18 -14 ity of mg tablet 00:00: 00:00 [place] 00 :00 [facility] LYRICA 75 2020- No Univers mg capsule 06-29 ity of 00:00: 00:00 [place] 00 :00 [facility] LYRICA 75 2020- No Univers mg capsule 06-29- ity of 00:00: 00:00 [place] 00 :00 [facility] mesalamine 2015-0 Yes 1000mg Take 2 Uni vers CR 5-17 capsules ity of (PENTASA) 00:00: by mouth 4 [place] 500 mg CR 00 (four) Medical capsule times Branch daily. mesalamine 2015-0 Yes 1000mg Take 2 Uni vers CR [...] (four) Medical capsule times Branch daily. mesalamine 0 Yes 1000mg Take 2 Uni vers CR [...] (four) Medical capsule times Branch daily. mesalamine 0 Yes 1000mg Take 2 Uni vers CR [...] mg 24 00:00: daily. [place] hr capsule [facility] tamsulosin 2014-02 Yes .4mg Take 1 Cap U nivers (FLOMAX) 0-20 by mouth ity of 0.4 mg 24 00:00: daily. [facility] capsule [facility] tamsulosin 2014-02 Yes .4mg Take 1 Cap U nivers (FLOMAX) 0-20 by mouth ity of 0.4 mg 24 00:00: daily. [facility] capsule [facility] tamsulosin 2014-02 Yes .4mg Take 1 Cap U nivers (FLOMAX) 0-20 by mouth ity of 0.4 mg 24 00:00: daily. [facility] capsule [facility] tamsulosin 2014-02 Yes .4mg Take 1 Cap U nivers (FLOMAX) 0-20 by mouth ity of 0.4 mg 24 00:00: daily. [facility] capsule [facility] tamsulosin 2014-02 Yes .4mg Take 1 Cap U nivers (FLOMAX) 0-20 by mouth ity of 0.4 mg 24 00:00: daily. [facility] capsule [facility] tamsulosin 2014-02 Yes .4mg Take 1 Cap U nivers (FLOMAX) 0-20 by mouth ity of 0.4 mg 24 00:00: daily. [facility] capsule [facility] tamsulosin 2014-02 Yes .4mg Take 1 Cap U nivers (FLOMAX) 0-20 by mouth ity of 0.4 mg 24 00:00: daily. [facility] capsule [facility] tamsulosin 2014-02 Yes .4mg Take 1 Cap U nivers (FLOMAX) 0-20 by mouth ity of 0.4 mg 24 00:00: daily. [facility] capsule [facility] tamsulosin 2014-02 Yes .4mg Take 1 Cap U nivers (FLOMAX) 0-20 by mouth ity of 0.4 mg 24 00:00: daily. [facility] capsule [facility] tamsulosin 2014-02 Yes .4mg Take 1 Cap U nivers (FLOMAX) 0-20 by mouth ity of 0.4 mg 24 00:00: daily. [facility] capsule [facility] tamsulosin 2014-02 Yes .4mg Take 1 Cap U nivers (FLOMAX) 0-20 by mouth ity of 0.4 mg 24 00:00: daily. [facility] capsule Medical Branch tamsulosin 2014-02 Yes .4mg Take 1 Cap U nivers (FLOMAX) 0-20 by mouth ity of 0.4 mg 24 00:00: daily. [facility] capsule [facility] tamsulosin 2014-02 Yes .4mg Take 1 Cap U nivers (FLOMAX) 0-20 by mouth ity of 0.4 mg 24 00:00: daily. [facility] capsule [facility] tamsulosin 2014-02 Yes .4mg Take 1 Cap U nivers (FLOMAX) 0-20 by mouth ity of 0.4 mg 24 00:00: daily. [facility] capsule [facility] tamsulosin 2014-02 Yes .4mg Take 1 Cap U nivers (FLOMAX) 0-20 by mouth ity of 0.4 mg 24 00:00: daily. [facility] capsule [facility] tamsulosin 2014-02 Yes .4mg Take 1 Cap U nivers (FLOMAX) 0-20 by mouth ity of 0.4 mg 24 00:00: daily. [facility] capsule [facility] tamsulosin 2014-02 Yes .4mg Take 1 Cap U nivers (FLOMAX) 0-20 by mouth ity of 0.4 mg 24 00:00: daily. [facility] capsule [facility] tamsulosin 2014-02 Yes .4mg Take 1 Cap U nivers (FLOMAX) 0-20 by mouth ity of 0.4 mg 24 00:00: daily. [facility] capsule [facility] tamsulosin 2014-02 Yes .4mg Take 1 Cap U nivers (FLOMAX) 0-20 by mouth ity of 0.4 mg 24 00:00: daily. [facility] capsule [facility] tamsulosin 2014-02 Yes .4mg Take 1 Cap U nivers (FLOMAX) 0-20 by mouth ity of 0.4 mg 24 00:00: daily. [facility] capsule [facility] tamsulosin 2014-02 Yes .4mg Take 1 Cap U nivers (FLOMAX) 0-20 by mouth ity of 0.4 mg 24 00:00: daily. [facility] capsule [facility] tamsulosin 2014-02 Yes .4mg Take 1 Cap U nivers (FLOMAX) 0-20 by mouth ity of 0.4 mg 24 00:00: daily. [facility] capsule Medical Branch tamsulosin 2014-02 Yes .4mg Take 1 Cap U nivers (FLOMAX) 0-20 by mouth ity of 0.4 mg 24 00:00: daily. [place] hr capsule [facility] tamsulosin 2014-02 Yes .4mg Take 1 Cap U nivers (FLOMAX) 0-20 by mouth ity of 0.4 mg 24 00:00: daily. [place] hr capsule [facility] tamsulosin 2014-02 Yes .4mg Take 1 Cap U nivers (FLOMAX) 0-20 by mouth ity of 0.4 mg 24 00:00: daily. [place] hr capsule [facility] tamsulosin 2014-02 Yes .4mg Take 1 Cap U nivers (FLOMAX) 0-20 by mouth ity of 0.4 mg 24 00:00: daily. [place] hr capsule [facility] tamsulosin 2014-02 Yes .4mg Take 1 Cap U nivers (FLOMAX) 0-20 by mouth ity of 0.4 mg 24 00:00: daily. [place] hr capsule [facility] tamsulosin 2014-02- No .4mg Take 1 Cap Univers (FLOMAX) 0-20 - by mouth ity of 0.4 mg 24 00:00: 00:00 daily. [place] hr capsule 00 : [facility] Carmel Carmel Yes Levy 1 tablet Common Hernandez as needed [facility] Amitriptyli Amitriptyli Yes Levy 1 tablet Common ne HCl ne HCl [facility] Zofran Zofran Yes [place] [facility] Pentasa Yes [place] 2 capsules C ommon [facility] Lyrica Lyrica Yes Levy 1 capsule Comm on Hernandez 1 to 3 [facility] before St bedtime in [facility] Immunizations Ordered Filled Immunization Date Status Comments [facility] e Immunization Name Name Twinrix (hep a/hep 2015-07-29 Completed Univer sity of b) 00:00:00 [facility] Twinrix (hep a/hep 2015-07-29 Completed Univer sity of b) 00:00:00 [facility] Twinrix (hep a/hep 2015-07-29 Completed Univer sity of b) 00:00:00 [facility] Twinrix (hep a/hep 2015-07-29 Completed Univer sity of b) 00:00:00 [place] [facility] Twinrix (hep a/hep 2015-07-29 Completed Univer sity of b) 00:00:00 [place] [facility] Twinrix (hep a/hep 2015-07-29 Completed Univer sity of b) 00:00:00 [facility] Twinrix (hep a/hep 2015-07-29 Completed Univer sity of b) 00:00:00 [facility] Twinrix (hep a/hep 2015-07-29 Completed Univer sity of b) 00:00:00 [facility] Twinrix (hep a/hep 2015-07-29 Completed Univer sity of b) 00:00:00 [facility] Twinrix (hep a/hep 2015-07-29 Completed Univer sity of b) 00:00:00 [facility] Twinrix (hep a/hep 2015-07-29 Completed Univer sity of b) 00:00:00 [facility] Twinrix (hep a/hep 2015-07-29 Completed Univer sity of b) 00:00:00 [facility] Twinrix (hep a/hep 2015-07-29 Completed Univer sity of b) 00:00:00 [facility] Twinrix (hep a/hep 2015-07-29 Completed Univer sity of b) 00:00:00 [facility] Twinrix (hep a/hep 2015-07-29 Completed Univer sity of b) 00:00:00 [facility] Twinrix (hep a/hep 2015-07-29 Completed Univer sity of b) 00:00:00 [facility] Twinrix (hep a/hep 2015-07-29 Completed Univer sity of b) 00:00:00 [facility] Twinrix (hep a/hep 2015-07-29 Completed Univer sity of b) 00:00:00 [facility] Twinrix (hep a/hep 2015-07-29 Completed Univer sity of b) 00:00:00 [facility] Twinrix (hep a/hep 2015-07-29 Completed Univer sity of b) 00:00:00 [place] [facility] Twinrix (hep a/hep 2015-07-29 Completed Univer sity of b) 00:00:00 [place] [facility] Twinrix (hep a/hep 2015-07-29 Completed Univer sity of b) 00:00:00 [place] [facility] Twinrix (hep a/hep 2015-07-29 Completed Univer sity of b) 00:00:00 [place] [facility] Twinrix (hep a/hep 2015-07-29 Completed Univer sity of b) 00:00:00 [place] [facility] Twinrix (hep a/hep 2015-07-29 Completed Univer sity of b) 00:00:00 [facility] Twinrix (hep a/hep 2015-07-29 Completed Univer sity of b) 00:00:00 [facility] Twinrix (hep a/hep 2015-07-29 Completed Univer sity of b) 00:00:00 [facility] Twinrix (hep a/hep 2015-07-29 Completed Univer sity of b) 00:00:00 [facility] Twinrix (hep a/hep 2015-07-29 Completed Univer sity of b) 00:00:00 [facility] Twinrix (hep a/hep 2015-07-29 Completed Univer sity of b) 00:00:00 [place] [facility] Twinrix (hep a/hep 2015-07-29 Completed Univer sity of b) 00:00:00 [facility] Twinrix (hep a/hep 2015-07-29 Completed Univer sity of b) 00:00:00 [place] [facility] Twinrix (hep a/hep 2015-07-29 Completed Univer sity of b) 00:00:00 [facility] Twinrix (hep a/hep 2015-07-29 Completed Univer sity of b) 00:00:00 [facility] Twinrix (hep a/hep 2015-07-29 Completed Univer sity of b) 00:00:00 [place] [facility] Twinrix (hep a/hep 2015-07-29 Completed Univer sity of b) 00:00:00 [facility] Twinrix (hep a/hep 2015-07-29 Completed Univer sity of b) 00:00:00 [facility] Twinrix (hep a/hep 2015-07-29 Completed Univer sity of b) 00:00:00 [place] [facility] Twinrix (hep a/hep 2015-07-29 Completed Univer sity of b) 00:00:00 [place] [facility] Twinrix (hep a/hep 2015-07-29 Completed Univer sity of b) 00:00:00 [place] [facility] Twinrix (hep a/hep 2015-07-29 Completed Univer sity of b) 00:00:00 [place] [facility] Twinrix (hep a/hep 2015-07-29 Completed Univer sity of b) 00:00:00 [place] [facility] Twinrix (hep a/hep 2015-07-29 Completed Univer sity of b) 00:00:00 [facility] Twinrix (hep a/hep 2015-07-29 Completed Univer sity of b) 00:00:00 [facility] Twinrix (hep a/hep 2015-07-29 Completed Univer sity of b) 00:00:00 [facility] Twinrix (hep a/hep 2015-07-29 Completed Univer sity of b) 00:00:00 [facility] Twinrix (hep a/hep 2015-07-29 Completed Univer sity of b) 00:00:00 [facility] Twinrix (hep a/hep 2015-07-29 Completed Univer sity of b) 00:00:00 [facility] Twinrix (hep a/hep 2015-07-29 Completed Univer sity of b) 00:00:00 [place] [facility] Twinrix (hep a/hep 2015-07-29 Completed Univer sity of b) 00:00:00 [place] [facility] Twinrix (hep a/hep 2015-07-29 Completed Univer sity of b) 00:00:00 [place] [facility] Twinrix (hep a/hep 2015-07-29 Completed Univer sity of b) 00:00:00 [facility] Twinrix (hep a/hep 2015-07-29 Completed Univer sity of b) 00:00:00 [facility] Twinrix (hep a/hep 2015-07-29 Completed Univer sity of b) 00:00:00 [facility] Twinrix (hep a/hep 2015-07-29 Completed Univer sity of b) 00:00:00 [facility] Twinrix (hep a/hep 2015-07-29 Completed Univer sity of b) 00:00:00 [facility] Twinrix (hep a/hep 2015-07-29 Completed Univer sity of b) 00:00:00 [facility] Twinrix (hep a/hep 2015-07-29 Completed Univer sity of b) 00:00:00 [facility] Twinrix (hep a/hep 2015-07-29 Completed Univer sity of b) 00:00:00 [facility] Twinrix (hep a/hep 2015-07-29 Completed Univer sity of b) 00:00:00 [facility] Twinrix (hep a/hep 2015-07-29 Completed Univer sity of b) 00:00:00 [facility] Twinrix (hep a/hep 2015-07-29 Completed Univer sity of b) 00:00:00 [facility] Influenza Virus 2015-06-29 Completed Universit y of Vaccine Quad IM 3+ 00:00:00 [facility] Influenza Virus 2015-06-29 Completed Universit y of Vaccine Quad IM 3+ 00:00:00 [facility] Influenza Virus 2015-06-29 Completed Universit y of Vaccine Quad IM 3+ 00:00:00 [facility] Influenza Virus 2015-06-29 Completed Universit y of Vaccine Quad IM 3+ 00:00:00 [facility] Influenza Virus 2015-06-29 Completed Universit y of Vaccine Quad IM 3+ 00:00:00 [facility] Influenza Virus 2015-06-29 Completed Universit y of Vaccine Quad IM 3+ 00:00:00 [facility] Influenza Virus 2015-06-29 Completed Universit y of Vaccine Quad IM 3+ 00:00:00 [facility] Influenza Virus 2015-06-29 Completed Universit y of Vaccine Quad IM 3+ 00:00:00 [facility] Influenza Virus 2015-06-29 Completed Universit y of Vaccine Quad IM 3+ 00:00:00 [facility] Influenza Virus 2015-06-29 Completed Universit y of Vaccine Quad IM 3+ 00:00:00 [facility] Influenza Virus 2015-06-29 Completed Universit y of Vaccine Quad IM 3+ 00:00:00 [facility] Influenza Virus 2015-06-29 Completed Universit y of Vaccine Quad IM 3+ 00:00:00 [facility] Influenza Virus 2015-06-29 Completed Universit y of Vaccine Quad IM 3+ 00:00:00 [facility] Influenza Virus 2015-06-29 Completed Universit y of Vaccine Quad IM 3+ 00:00:00 [facility] Influenza Virus 2015-06-29 Completed Universit y of Vaccine Quad IM 3+ 00:00:00 [facility] Influenza Virus 2015-06-29 Completed Universit y of Vaccine Quad IM 3+ 00:00:00 [facility] Influenza Virus 2015-06-29 Completed Universit y of Vaccine Quad IM 3+ 00:00:00 [facility] Influenza Virus 2015-06-29 Completed Universit y of Vaccine Quad IM 3+ 00:00:00 [facility] Influenza Virus 2015-06-29 Completed Universit y of Vaccine Quad IM 3+ 00:00:00 [facility] Influenza Virus 2015-06-29 Completed Universit y of Vaccine Quad IM 3+ 00:00:00 [facility] Influenza Virus 2015-06-29 Completed Universit y of Vaccine Quad IM 3+ 00:00:00 [facility] Influenza Virus 2015-06-29 Completed Universit y of Vaccine Quad IM 3+ 00:00:00 [facility] Influenza Virus 2015-06-29 Completed Universit y of Vaccine Quad IM 3+ 00:00:00 [facility] Influenza Virus 2015-06-29 Completed Universit y of Vaccine Quad IM 3+ 00:00:00 [facility] Influenza Virus 2015-06-29 Completed Universit y of Vaccine Quad IM 3+ 00:00:00 [facility] Influenza Virus 2015-06-29 Completed Universit y of Vaccine Quad IM 3+ 00:00:00 [facility] Influenza Virus 2015-06-29 Completed Universit y of Vaccine Quad IM 3+ 00:00:00 [facility] Influenza Virus 2015-06-29 Completed Universit y of Vaccine Quad IM 3+ 00:00:00 [facility] Influenza Virus 2015-06-29 Completed Universit y of Vaccine Quad IM 3+ 00:00:00 [facility] Influenza Virus 2015-06-29 Completed Universit y of Vaccine Quad IM 3+ 00:00:00 [facility] Influenza Virus 2015-06-29 Completed Universit y of Vaccine Quad IM 3+ 00:00:00 [facility] Influenza Virus 2015-06-29 Completed Universit y of Vaccine Quad IM 3+ 00:00:00 [facility] Influenza Virus 2015-06-29 Completed Universit y of Vaccine Quad IM 3+ 00:00:00 [facility] Influenza Virus 2015-06-29 Completed Universit y of Vaccine Quad IM 3+ 00:00:00 [facility] Influenza Virus 2015-06-29 Completed Universit y of Vaccine Quad IM 3+ 00:00:00 [facility] Influenza Virus 2015-06-29 Completed Universit y of Vaccine Quad IM 3+ 00:00:00 [facility] Influenza Virus 2015-06-29 Completed Universit y of Vaccine Quad IM 3+ 00:00:00 [facility] Influenza Virus 2015-06-29 Completed Universit y of Vaccine Quad IM 3+ 00:00:00 [facility] Influenza Virus 2015-06-29 Completed Universit y of Vaccine Quad IM 3+ 00:00:00 [facility] Influenza Virus 2015-06-29 Completed Universit y of Vaccine Quad IM 3+ 00:00:00 [facility] Influenza Virus 2015-06-29 Completed Universit y of Vaccine Quad IM 3+ 00:00:00 [facility] Influenza Virus 2015-06-29 Completed Universit y of Vaccine Quad IM 3+ 00:00:00 [facility] Influenza Virus 2015-06-29 Completed Universit y of Vaccine Quad IM 3+ 00:00:00 [facility] Influenza Virus 2015-06-29 Completed Universit y of Vaccine Quad IM 3+ 00:00:00 [facility] Influenza Virus 2015-06-29 Completed Universit y of Vaccine Quad IM 3+ 00:00:00 [facility] Influenza Virus 2015-06-29 Completed Universit y of Vaccine Quad IM 3+ 00:00:00 [facility] Influenza Virus 2015-06-29 Completed Universit y of Vaccine Quad IM 3+ 00:00:00 [facility] Influenza Virus 2015-06-29 Completed Universit y of Vaccine Quad IM 3+ 00:00:00 [facility] Influenza Virus 2015-06-29 Completed Universit y of Vaccine Quad IM 3+ 00:00:00 [facility] Influenza Virus 2015-06-29 Completed Universit y of Vaccine Quad IM 3+ 00:00:00 [facility] Influenza Virus 2015-06-29 Completed Universit y of Vaccine Quad IM 3+ 00:00:00 [facility] Influenza Virus 2015-06-29 Completed Universit y of Vaccine Quad IM 3+ 00:00:00 [facility] Influenza Virus 2015-06-29 Completed Universit y of Vaccine Quad IM 3+ 00:00:00 [facility] Influenza Virus 2015-06-29 Completed Universit y of Vaccine Quad IM 3+ 00:00:00 [facility] Influenza Virus 2015-06-29 Completed Universit y of Vaccine Quad IM 3+ 00:00:00 [facility] Influenza Virus 2015-06-29 Completed Universit y of Vaccine Quad IM 3+ 00:00:00 [facility] Influenza Virus 2015-06-29 Completed Universit y of Vaccine Quad IM 3+ 00:00:00 [facility] Influenza Virus 2015-06-29 Completed Universit y of Vaccine Quad IM 3+ 00:00:00 [facility] Influenza Virus 2015-06-29 Completed Universit y of Vaccine Quad IM 3+ 00:00:00 [facility] Influenza Virus 2015-06-29 Completed Universit y of Vaccine Quad IM 3+ 00:00:00 [facility] Influenza Virus 2015-06-29 Completed Universit y of Vaccine Quad IM 3+ 00:00:00 [facility] Influenza Virus 2015-06-29 Completed Universit y of Vaccine Quad IM 3+ 00:00:00 [facility] Twinrix (hep a/hep 2015-06-28 Completed Univer sity of b) 00:00:00 [facility] Twinrix (hep a/hep 2015-06-28 Completed Univer sity of b) 00:00:00 [facility] Twinrix (hep a/hep 2015-06-28 Completed Univer sity of b) 00:00:00 [facility] Twinrix (hep a/hep 2015-06-28 Completed Univer sity of b) 00:00:00 [facility] Twinrix (hep a/hep 2015-06-28 Completed Univer sity of b) 00:00:00 [facility] Twinrix (hep a/hep 2015-06-28 Completed Univer sity of b) 00:00:00 [facility] Twinrix (hep a/hep 2015-06-28 Completed Univer sity of b) 00:00:00 [place] [facility] Twinrix (hep a/hep 2015-06-28 Completed Univer sity of b) 00:00:00 [place] [facility] Twinrix (hep a/hep 2015-06-28 Completed Univer sity of b) 00:00:00 [place] [facility] Twinrix (hep a/hep 2015-06-28 Completed Univer sity of b) 00:00:00 [place] [facility] Twinrix (hep a/hep 2015-06-28 Completed Univer sity of b) 00:00:00 [facility] Twinrix (hep a/hep 2015-06-28 Completed Univer sity of b) 00:00:00 [facility] Twinrix (hep a/hep 2015-06-28 Completed Univer sity of b) 00:00:00 [facility] Twinrix (hep a/hep 2015-06-28 Completed Univer sity of b) 00:00:00 [facility] Twinrix (hep a/hep 2015-06-28 Completed Univer sity of b) 00:00:00 [facility] Twinrix (hep a/hep 2015-06-28 Completed Univer sity of b) 00:00:00 [facility] Twinrix (hep a/hep 2015-06-28 Completed Univer sity of b) 00:00:00 [facility] Twinrix (hep a/hep 2015-06-28 Completed Univer sity of b) 00:00:00 [place] [facility] Twinrix (hep a/hep 2015-06-28 Completed Univer sity of b) 00:00:00 [facility] Twinrix (hep a/hep 2015-06-28 Completed Univer sity of b) 00:00:00 [facility] Twinrix (hep a/hep 2015-06-28 Completed Univer sity of b) 00:00:00 [facility] Twinrix (hep a/hep 2015-06-28 Completed Univer sity of b) 00:00:00 [facility] Twinrix (hep a/hep 2015-06-28 Completed Univer sity of b) 00:00:00 [place] [facility] Twinrix (hep a/hep 2015-06-28 Completed Univer sity of b) 00:00:00 [place] [facility] Twinrix (hep a/hep 2015-06-28 Completed Univer sity of b) 00:00:00 [place] [facility] Twinrix (hep a/hep 2015-06-28 Completed Univer sity of b) 00:00:00 [place] [facility] Twinrix (hep a/hep 2015-06-28 Completed Univer sity of b) 00:00:00 [place] [facility] Twinrix (hep a/hep 2015-06-28 Completed Univer sity of b) 00:00:00 [facility] Twinrix (hep a/hep 2015-06-28 Completed Univer sity of b) 00:00:00 [facility] Twinrix (hep a/hep 2015-06-28 Completed Univer sity of b) 00:00:00 [facility] Twinrix (hep a/hep 2015-06-28 Completed Univer sity of b) 00:00:00 [facility] Twinrix (hep a/hep 2015-06-28 Completed Univer sity of b) 00:00:00 [facility] Twinrix (hep a/hep 2015-06-28 Completed Univer sity of b) 00:00:00 [facility] Twinrix (hep a/hep 2015-06-28 Completed Univer sity of b) 00:00:00 [facility] Twinrix (hep a/hep 2015-06-28 Completed Univer sity of b) 00:00:00 [facility] Twinrix (hep a/hep 2015-06-28 Completed Univer sity of b) 00:00:00 [facility] Twinrix (hep a/hep 2015-06-28 Completed Univer sity of b) 00:00:00 [facility] Twinrix (hep a/hep 2015-06-28 Completed Univer sity of b) 00:00:00 [facility] Twinrix (hep a/hep 2015-06-28 Completed Univer sity of b) 00:00:00 [facility] Twinrix (hep a/hep 2015-06-28 Completed Univer sity of b) 00:00:00 [facility] Twinrix (hep a/hep 2015-06-28 Completed Univer sity of b) 00:00:00 [facility] Twinrix (hep a/hep 2015-06-28 Completed Univer sity of b) 00:00:00 [facility] Twinrix (hep a/hep 2015-06-28 Completed Univer sity of b) 00:00:00 [facility] Twinrix (hep a/hep 2015-06-28 Completed Univer sity of b) 00:00:00 [facility] Twinrix (hep a/hep 2015-06-28 Completed Univer sity of b) 00:00:00 [facility] Twinrix (hep a/hep 2015-06-28 Completed Univer sity of b) 00:00:00 [facility] Twinrix (hep a/hep 2015-06-28 Completed Univer sity of b) 00:00:00 [facility] Twinrix (hep a/hep 2015-06-28 Completed Univer sity of b) 00:00:00 [facility] Twinrix (hep a/hep 2015-06-28 Completed Univer sity of b) 00:00:00 [facility] Twinrix (hep a/hep 2015-06-28 Completed Univer sity of b) 00:00:00 [facility] (hep a/hep 2015-06-28 Completed Univer sity of b) 00:00:00 [facility] (hep a/hep 2015-06-28 Completed Univer sity of b) 00:00:00 [facility] (hep a/hep 2015-06-28 Completed Univer sity of b) 00:00:00 [facility] (hep a/hep 2015-06-28 Completed Univer sity of b) 00:00:00 [facility] (hep a/hep 2015-06-28 Completed Univer sity of b) 00:00:00 [facility] (hep a/hep 2015-06-28 Completed Univer sity of b) 00:00:00 [facility] (hep a/hep 2015-06-28 Completed Univer sity of b) 00:00:00 [facility] (hep a/hep 2015-06-28 Completed Univer sity of b) 00:00:00 [facility] (hep a/hep 2015-06-28 Completed Univer sity of b) 00:00:00 [facility] (hep a/hep 2015-06-28 Completed Univer sity of b) 00:00:00 [facility] (hep a/hep 2015-06-28 Completed Univer sity of b) 00:00:00 [facility] (hep a/hep 2015-06-28 Completed Univer sity of b) 00:00:00 [facility] Vital Signs Vital Name Observation Time Observation Value Comments Source Systolic blood 2021-08-26 18:00:00 157 mm[Hg] Univer sity of pressure [facility] Diastolic blood 2021-08-26 18:00:00 97 mm[Hg] Unive rsity of pressure [facility] Heart rate 2021-08-26 18:00:00 87 /min [facility] Respiratory rate 2021-08-26 18:00:00 18 /min Univ ersity of [facility] Oxygen saturation in 2021-08-26 18:00:00 97 /min [facility] of Arterial blood by [place] [employer] [facility] Body temperature 2021-08-26 13:42:00 37.11 Briseida Univ ersity [facility] Body weight 2021-08-26 13:42:00 70.308 kg [facility] BMI 2021-08-26 13:42:00 24.28 kg/m2 [facility] Systolic blood 2020-12-12 16:16:00 97 mm[Hg] Univer sity of pressure [facility] Diastolic blood 2020-12-12 16:16:00 67 mm[Hg] Unive rsity of pressure [facility] Heart rate 2020-12-12 16:16:00 97 /min [facility] Body temperature 2020-12-12 16:16:00 37.67 Briseida Univ ersity of [facility] Respiratory rate 2020-12-12 16:16:00 18 /min Univ ersity of [facility] Oxygen saturation in 2020-12-12 16:16:00 93 /min University of Arterial blood by [employer]ern[employer] P[facility] oxim[facility] Branch Body weight 2020-12-12 08:45:00 95.391 kg [facility] BMI 2020-12-12 08:45:00 32.94 kg/m2 [facility] Body height 2020-12-05 22:36:00 170.2 cm [facility] Systolic blood 2020-07-14 22:03:00 156 mm[Hg] Univer sity of pressure [facility] Diastolic blood 2020-07-14 22:03:00 93 mm[Hg] Unive rsity of pressure [facility] Heart rate 2020-07-14 22:03:00 84 /min [facility] Respiratory rate 2020-07-14 22:03:00 20 /min Univ ersity [facility] Oxygen saturation in 2020-07-14 22:03:00 98 /min [facility] of Arterial blood by [employer] [facility] Branch Body temperature 2020-07-14 03:11:00 36.67 Briseida Univ ersity [facility] Body weight 2020-07-13 20:13:00 83.898 kg [facility] BMI 2020-07-13 20:13:00 28.97 kg/m2 [facility] Systolic blood 2020-07-13 15:43:00 119 mm[Hg] Univer sity of pressure [facility] Diastolic blood 2020-07-13 15:43:00 77 mm[Hg] Unive rsity of pressure [facility] Heart rate 2020-07-13 15:43:00 68 /min [facility] Oxygen saturation in 2020-07-13 15:43:00 95 /min [facility] Arterial blood by [employer] [facility] Systolic blood 2020-07-07 04:00:00 142 mm[Hg] Univer sity of pressure [facility] Diastolic blood 2020-07-07 04:00:00 94 mm[Hg] Unive rsity of pressure [facility] Heart rate 2020-07-07 04:00:00 73 /min [facility] Respiratory rate 2020-07-07 04:00:00 13 /min Univ ersity [facility] Oxygen saturation in 2020-07-07 04:00:00 99 /min [facility] blood by [place] [facility] Body temperature 2020-07-07 00:04:24 36.83 Briseida Univ ersity of [facility] Body weight 2020-07-06 23:44:00 86.183 kg [facility] BMI 2020-07-06 23:44:00 29.76 kg/m2 [facility] Systolic blood 2020-07-04 21:16:00 142 mm[Hg] Univer sity of pressure [facility] Diastolic blood 2020-07-04 21:16:00 93 mm[Hg] Unive rsity of pressure [facility] Heart rate 2020-07-04 21:16:00 72 /min [facility] Respiratory rate 2020-07-04 21:16:00 18 /min [facility] ers[facility] Oxygen saturation in 2020-07-04 21:16:00 97 /min [facility] Arterial blood by [facility] Pulse oximetry Branch Body temperature 2020-07-04 17:14:00 36.89 Briseida Univ ers[facility] Body weight 2020-07-04 17:14:00 86.183 kg [facility] BMI 2020-07-04 17:14:00 29.76 kg/m2 [facility] Systolic blood 2020-06-28 20:07:00 110 mm[Hg] Univer sity of pressure [facility] Diastolic blood 2020-06-28 20:07:00 67 mm[Hg] Unive rsity of pressure [facility] Heart rate 2020-06-28 20:07:00 57 /min [facility] Body temperature 2020-06-28 20:07:00 36.83 Briseida Univ ers[facility] Respiratory rate 2020-06-28 20:07:00 16 /min Univ ers[facility] Oxygen saturation in 2020-06-28 20:07:00 99 /min [facility] Arterial blood by [facility] Pulse oximetry Branch Body height 2020-06-27 03:02:00 170.2 cm [facility] Body weight 2020-06-27 03:02:00 83.008 kg [facility] BMI 2020-06-27 03:02:00 28.66 kg/m2 [facility] Systolic blood 2020-06-02 16:17:00 133 mm[Hg] Univer sity of pressure [facility] Diastolic blood 2020-06-02 16:17:00 89 mm[Hg] Unive rsity of pressure [facility] Heart rate 2020-06-02 16:17:00 72 /min [facility] Body temperature 2020-06-02 16:17:00 36.17 Briseida Univ ersity [facility] Respiratory rate 2020-06-02 16:17:00 20 /min [facility] Oxygen saturation in 2020-06-02 16:17:00 96 /min [facility] Ar[facility]ial blood by [place] [employer] Body height 2020-05-30 22:29:00 170.2 cm [facility] Body weight 2020-05-30 22:29:00 81.647 kg [facility] BMI 2020-05-30 22:29:00 28.19 kg/m2 [facility] Systolic blood 2020-05-27 02:05:00 118 mm[Hg] Univer sity of pressure [facility] Diastolic blood 2020-05-27 02:05:00 73 mm[Hg] Unive rsity of pressure [facility] Heart rate 2020-05-27 02:05:00 80 /min [facility] Respiratory rate 2020-05-27 02:05:00 10 /min Univ ers[facility] Oxygen saturation in 2020-05-27 02:05:00 93 /min [facility] blood by [place] [employer] P[facility]xim[facility] Body temperature 2020-05-26 23:07:00 37.22 Briseida Univ ers[facility] Body height 2020-05-26 23:07:00 170.2 cm [facility] Body weight 2020-05-26 23:07:00 88.451 kg [facility] BMI 2020-05-26 23:07:00 30.54 kg/m2 [facility] Systolic blood 2020-05-13 22:00:00 106 mm[Hg] Univer sity of pressure [facility] Diastolic blood 2020-05-13 22:00:00 57 mm[Hg] Unive rsity of pressure [facility] Heart rate 2020-05-13 22:00:00 54 /min [facility] Respiratory rate 2020-05-13 22:00:00 16 /min [facility] Oxygen saturation in 2020-05-13 22:00:00 100 /min [facility] blood by [place] [facility] Body temperature 2020-05-13 16:33:00 37.56 Briseida [facility] Body weight 2020-05-13 16:33:00 77.111 kg [facility] BMI 2020-05-13 16:33:00 26.63 kg/m2 [facility] Systolic blood 2020-05-13 15:28:00 135 mm[Hg] Univer sity of pressure [facility] Diastolic blood 2020-05-13 15:28:00 88 mm[Hg] Unive rsity of pressure [facility] Heart rate 2020-05-13 15:28:00 80 /min [facility] Body temperature 2020-05-13 15:28:00 36.67 Briseida [facility] Respiratory rate 2020-05-13 15:28:00 18 /min [facility] Body height 2020-05-13 15:28:00 170.2 cm [facility] Body weight 2020-05-13 15:28:00 77.111 kg [facility] BMI 2020-05-13 15:28:00 26.63 kg/m2 [facility] Oxygen saturation in 2020-05-13 15:28:00 99 /min [facility] [place] [employer] Systolic blood 2020-03-23 15:48:00 130 mm[Hg] Univer sity of pressure [facility] Diastolic blood 2020-03-23 15:48:00 89 mm[Hg] Unive rsity of pressure [facility] Heart rate 2020-03-23 15:48:00 95 /min [facility] Body height 2020-03-23 15:48:00 170.2 cm [facility] Body weight 2020-03-23 15:48:00 83.008 kg Universi ty of [facility] BMI 2020-03-23 15:48:00 28.66 kg/m2 Universi ty of [facility] Oxygen saturation in 2020-03-23 15:48:00 100 /min [facility] of Arterial blood by [facility] Pulse oximetry Branch Systolic blood 2019-12-08 18:48:47 99 mm[Hg] Univer sity of pressure [facility] Diastolic blood 2019-12-08 18:48:47 70 mm[Hg] Unive rsity of pressure [facility] Heart rate 2019-12-08 18:48:47 63 /min Universi ty of [facility] Respiratory rate 2019-12-08 18:48:47 18 /min [facility] Oxygen saturation in 2019-12-08 18:48:47 100 /min [facility] Arterial blood by [facility] Pulse oximetry Branch Body temperature 2019-12-08 16:07:00 37 Briseida [facility] ersity of [facility] Body height 2019-12-08 16:07:00 170.2 cm Universi ty of [facility] Body weight 2019-12-08 16:07:00 81.647 kg Universi ty of [facility] BMI 2019-12-08 16:07:00 28.19 kg/m2 Universi ty [facility] Systolic blood 2019-12-08 15:11:00 119 mm[Hg] Univer sity of [facility] Diastolic blood 2019-12-08 15:11:00 80 mm[Hg] Unive rsity of [facility] Heart rate 2019-12-08 15:11:00 83 /min Universi ty of [facility] Body temperature 2019-12-08 15:11:00 36.44 Briseida Univ ersity of [facility] Respiratory rate 2019-12-08 15:11:00 18 /min Univ ersity of [facility] Body weight 2019-12-08 15:11:00 82.827 kg Universi ty of [facility] BMI 2019-12-08 15:11:00 28.60 kg/m2 Univers[facility] ty [facility] Procedures Procedure Date / Time Performing Clinician Source Performed CT ABDOMEN PELVIS W 2021-08-26 16:31:09 Torey Kay [facility] URINE DRUG (IMMUNOASSAY) 2021-08-26 15:26:00 Torey Kay [facility] SCREEN URINALYSIS 2021-08-26 15:26:00 Torey Kay [facility] XR CHEST 1 VW 2021-08-26 14:33:00 Torey Kay [facility] BLOOD CULTURE SCREEN 2021-08-26 14:21:00 [facility]LOOD CULTURE SCREEN 2021-08-26 14:15:00 Torey Kay [facility] LIPASE 2021-08-26 14:15:00 Torey Kay [facility] MAGNESIUM 2021-08-26 14:15:00 Torey Kay Joanie [facility] TROPONIN I 2021-08-26 14:15:00 Torey Kay Joanie [facility] COMP. METABOLIC PANEL 2021-08-26 14:15:[address] [facility] ([id number]) [facility] CBC WITH DIFF 2021-08-26 14:15:00 Torey Kay Joanie [facility] AC PANEL 21 + LACTIC ACID 2021-08-26 14:14:00 Torey Kay [facility] CONSENT/REFUSAL FOR 2021-08-26 13:50:45 Doctor Unassigned, [facility] DIAGNOSIS AND TREATMENT [facility] PHOSPHORUS 2020-12-12 10:06:00 Sandrita [facility] MAGNESIUM 2020-12-12 10:06:00 Sandrita [facility] BASIC METABOLIC PANEL 2020-12-12 10:06:00 Nehemias Pollock Rene Un [facility] (NA, K, CL, CO2, GLUCOSE, Medica l Branch BUN, CREATININE, CA) VANCOMYCIN RANDOM LEVEL 2020-12-11 14:30:00 Nasir Fowler [facility] OSMOLALITY URINE 2020-12-11 10:41:[address] [facility] CREATININE, URINE RANDOM 2020-12-11 10:39:00 [facility], URINE RANDOM 2020-12-11 10:39:00 [facility] RANDOM 2020-12-11 10:39:00 Nicole Sanchez [facility] PHOSPHORUS 2020-12-11 08:50:00 Sandrita [facility] URIC ACID 2020-12-11 08:50:[address] [facility] MAGNESIUM 2020-12-11 08:50:00 Sandrita [facility] OSMOLALITY, SERUM OR 2020-12-11 08:50:00 Nicole Sanchez [facility] BASIC METABOLIC PANEL 2020-12-11 08:50:[address] [facility] (NA, K, CL, CO2, GLUCOSE, Medica l Branch BUN, CREATININE, CA) CBC WITH DIFF 2020-12-11 08:50:00 Janeth [facility] URINALYSIS 2020-12-10 20:31:00 Janeth [facility] URINE CULTURE 2020-12-10 20:31:00 Janeth [facility] BLOOD CULTURE SCREEN 2020-12-10 17:58:00 Nasir [facility] BLOOD CULTURE SCREEN 2020-12-10 17:51:00 Nasir Fowler [facility] PHOSPHORUS 2020-12-10 17:50:00 Zenaida Rodrigez [facility] BASIC METABOLIC PANEL 2020-12-10 17:50:00 Nicole Sanchez [facility] (NA, K, CL, CO2, GLUCOSE, Medica l Branch BUN, CREATININE, CA) CBC WITH DIFF 2020-12-10 17:49:00 Janeth [facility] XR CHEST 1 VW 2020-12-10 17:21:04 Janeth [facility] VANCOMYCIN TROUGH 2020-12-10 14:44:00 [place], [facility] PHOSPHORUS 2020-12-10 10:29:00 Sandrita [facility] MAGNESIUM 2020-12-10 10:29:00 Sandrita [facility] BASIC METABOLIC PANEL 2020-12-10 10:29:00 [facility] ([facility], K, CL, CO2, GLUCOSE, Medica l Branch BUN, CREATININE, CA) BASIC METABOLIC PANEL 2020-12-10 00:50:00 Nicole Sanchez [facility] (NA, K, CL, CO2, GLUCOSE, Medica l Branch BUN, CREATININE, CA) VANCOMYCIN TROUGH 2020-12-09 19:02:00 Sandrita [facility] PHOSPHORUS 2020-12-09 09:58:00 Sandrita [facility] MAGNESIUM 2020-12-09 09:58:00 Sandrita [facility] BASIC METABOLIC PANEL 2020-12-09 09:58:00 Sandrita [facility] (NA, K, CL, CO2, GLUCOSE, Medica l Branch BUN, CREATININE, CA) CT ABDOMEN PELVIS W 2020-12-08 17:35:25 Lesley Jay [facility] PHOSPHORUS 2020-12-08 09:38:00 Sandrita [facility] MAGNESIUM 2020-12-08 09:38:00 Sandrita [facility] BASIC METABOLIC PANEL 2020-12-08 09:38:00 Sandrita [facility] (NA, K, CL, CO2, GLUCOSE, Medica l Branch BUN, CREATININE, CA) VANCOMYCIN TROUGH 2020-12-08 06:35:00 Sandrita [facility] TRANSTHORACIC ECHO (TTE) 2020-12-07 18:35:00 Nasir Fowler [facility] MAGNESIUM 2020-12-07 09:59:00 [facility] 2020-12-07 09:59:00 [facility] (NA, K, CL, CO2, GLUCOSE, Medica l Branch BUN, CREATININE, CA) CBC WITH DIFF 2020-12-07 09:59:00 [facility] BASIC METABOLIC PANEL 2020-12-07 02:15:00 [facility] (NA, K, CL, CO2, GLUCOSE, Medica l Branch BUN, CREATININE, CA) MAGNESIUM 2020-12-06 15:50:00 Jose [facility] BASIC METABOLIC PANEL 2020-12-06 15:50:00 [facility] (NA, K, CL, CO2, GLUCOSE, Medica l Branch BUN, CREATININE, CA) CBC WITH DIFF 2020-12-06 15:50:00 [facility] MAGNESIUM 2020-12-05 22:29:00 [facility] BASIC METABOLIC PANEL 2020-12-05 22:29:00 Lisandra Eagle [facility] (NA, K, CL, CO2, GLUCOSE, Medica l Branch BUN, CREATININE, CA) CT HEAD WO CONTRAST 2020-12-05 20:11:36 Lisandra Eagle [facility] POCT GLUCOSE(AGE >30DAYS) 2020-12-05 19:44:00 [facility] 2020-12-05 18:53:00 Lisandra Eagle [facility] URINE DRUG (IMMUNOASSAY) 2020-12-05 18:49:00 Lisandra Eagle [facility] DRUG [facility] SCREEN URINALYSIS 2020-12-05 18:49:[address] [facility] URINE CULTURE 2020-12-05 18:49:[address] [facility] EXTRA TUBE LT. BLUE 2020-12-05 18:49:00 Lisandra Eagle [facility] XR CHEST 1 VW 2020-12-05 18:44:[address] [facility] COVID-19 (ID NOW RAPID 2020-12-05 18:39:00 Lisandra Eagle [facility] TESTING) Medical Branch LAB ONLY COVID 2020-12-05 18:39:00 Lisandra Eagle [facility] INTERPRETATION [facility] BLOOD CULTURE SCREEN 2020-12-05 18:35:00 Lisandra Eagle [facility] LIP[facility] 2020-12-05 18:35:[address] [facility] MAGNESIUM 2020-12-05 18:35:[address] [facility] TROPONIN I 2020-12-05 18:35:[address] [facility] THYROID STIMULATING 2020-12-05 18:35:00 Lisandra Eagle [facility] HORMONE [facility] COMP. METABOLIC PANEL 2020-12-05 18:35:00 Lisandra Eagle [facility] ([id number]) [facility] CBC WITH DIFF 2020-12-05 18:35:[address] [facility] LACTIC ACID WHOLE BLOOD 2020-12-05 18:34:00 Lisandra Eagle [facility] AC PANEL 20 + LACTIC ACID 2020-12-05 18:34:00 [facility] ECG ROUTINE & RHYTHM 2020-12-05 18:24:21 Lisandra Eagle [facility] PHYSICIAN ORDERS 2020-09-09 05:01:00 Doctor Unassigned, [facility] CBC WITH DIFF 2020-08-09 17:14[facility] 2020-08-09 17:14[facility] RHEUMAT[facility] FACTOR 2020-08-09 17:14:00 Luisa [facility] C-REACTIVE PROTEIN 2020-08-09 17:14:00 [facility]. METABOLIC PANEL 2020-08-09 17:14:[address] [facility] ([id number]) Medical Branch SEDIMENTATION RATE 2020-08-09 17:14:00 Leigh Moran [facility] ANTI-SSB(LA) 2020-08-09 17:14:00 Leigh Moran [facility] ADC OR LEXX ONLY - RPR 2020-08-09 17:14:00 Leigh Moran Un [facility] HIV 1/2 AG-AB WITH REFLEX 2020-08-09 17:14:00 Leigh Moran Un [facility] ASSIGNMENT OF BENEFITS 2020-08-09 16:41:17 Doctor Unassigned, Un [facility] BODY FLUID DIRECT COUNT 2020-07-14 20:10:00 Hansel Kennedy [facility] CSF CULTURE 2020-07-14 20:10:00 Hansel Kennedy [facility] CEREBROSPINAL FLUID 2020-07-14 20:09:00 Hansel Kennedy [facility] PROTEIN [facility] CEREBROSPINAL FLUID 2020-07-14 20:09:00 Hansel Kennedy [facility] GLUCOSE [facility] EXTRA TUBE CSF 2020-07-14 20:09:00 Hansel Kennedy [facility] MENINGITIS/ENCEPHALITIS 2020-07-14 20:09:00 Hansel Kennedy [facility] PANEL BY PCR [facility] POCT GLUCOSE (AUTOMATED) 2020-07-14 14:55:00 Christina Roque [facility] MAGNESIUM 2020-07-14 13:11:00 Hansel Kennedy [facility] PHOSPHORUS 2020-07-14 13:10:00 Tito [facility] o [facility] XR CHEST 1 VW 2020-07-14 13:06:38 Hansel Kennedy [facility] URINALYSIS 2020-07-14 09:32:[address] [facility] COVID-19 (ID NOW RAPID 2020-07-14 09:25:00 Bhaskar Reyna [facility] TESTING) Medical Branch C-REACTIVE PROTEIN 2020-07-14 01:10:00 Bhaskar Reyna [facility] HEPATIC FUNCTION PANEL 2020-07-14 01:10:00 Bhaskar Reyna [facility] ([id number]) (ALB,T.PRO,BILI Medical Branch T,BU/BC,ALT,AST,ALK PHOS) BASIC METABOLIC PANEL 2020-07-14 01:10:00 Axel Bhaskar [facility] (NA, K, CL, CO2, GLUCOSE, Medica l Branch BUN, CREATININE, CA) SEDIMENTATION RATE 2020-07-14 01:10:00 Bhaskar Reyna [facility] CBC WITH DIFF 2020-07-14 01:10:[address] [facility] AUTHORIZATION FOR RELEASE 2020-07-08 05:01:00 Doctor [place], [facility] REFERRAL- 2020-07-07 05:01:00 Doctor [place], [facility] REQUEST/RESPONSE [facility] CBC WITH DIFF 2020-07-07 03:16:[address] [facility] NOTICE OF PRIVACY 2020-07-06 23:35:30 Doctor [place], [facility] PRACTICES [facility] CONSENT/REFUSAL FOR 2020-07-06 23:35:07 Doctor [place], [facility] DIAGNOSIS AND TREATMENT [facility] [place] CT HEAD WO CONTRAST 2020-07-04 19:42:39 Lety Noriega [facility] LIPASE 2020-07-04 18:56:00 Lety [facility] COMP. METABOLIC PANEL 2020-07-04 18:56:00 Lety Noriega [facility] ([id number]) Medical Branch CBC WITH DIFF 2020-07-04 18:56:00 Lety [facility] URINALYSIS 2020-07-04 18:56:00 Lety Noriega [facility] CONSENT/REFUSAL FOR 2020-07-04 17:04:54 Doctor Unassigned, [facility] DIAGNOSIS AND TREATMENT [facility] TROPONIN I 2020-06-27 16:14[facility] 2020-06-27 10:20:11 Jose Cintron [facility] COVID-19 (ID NOW RAPID 2020-06-26 22:32:00 Ruby, [facility] TESTING) [facility] CT ANGIOGRAM HEAD 2020-06-26 22:14[facility] 2020-06-26 22:14:19 Ruby, [facility] HEAD WO CONTRAST 2020-06-26 22:02:20 Tung Sabrina [facility] URINALYSIS 2020-06-26 21:28:[address] [facility] XR CHEST 1 VW 2020-06-26 20:27:[address] [facility] TROPONIN I 2020-06-26 20:24:00 [facility] 2020-06-26 20:24:[id number] (ALB,T.PRO,BILI [facility] T,BU/BC,ALT,AST,ALK PHOS) BASIC METABOLIC PANEL 2020-06-26 20:24:00 [facility] ([facility], K, CL, CO2, GLUCOSE, Medica l Branch BUN, CREATININE, CA) SEDIMENTATION RATE 2020-06-26 20:24:00 [facility] WITH DIFF 2020-06-26 20:24:[address] [facility] HB ECG ROUTINE & RHYTHM 2020-06-26 20:16:57 Sabrina Ruby [facility] CONSENT/REFUSAL FOR 2020-06-26 20:02:52 Doctor Unassigned, [facility] DIAGNOSIS AND TREATMENT [facility] COMP. METABOLIC PANEL 2020-06-01 09:54:[address] [facility] ([id number]) Medical Branch BASIC METABOLIC PANEL 2020-05-31 14:36:[address] [facility] (NA, K, CL, CO2, GLUCOSE, Medica l Branch BUN, CREATININE, CA) CBC WITH DIFF 2020-05-31 12:26:00 [facility]EL[facility] WO 2020-05-30 20:49:43 Dash Guerrero [facility] CONTRAST [facility] BLOOD CULTURE SCREEN 2020-05-30 20:16:00 Dash Guerrero [facility] hospital LACTIC ACID WHOLE BLOOD 2020-05-30 20:15:00 Dash Guerrero [facility] URINALYSIS 2020-05-30 20:14:00 Dash Guerrero [facility] HEPATIC FUNCTION PANEL 2020-05-30 20:13:00 Dash Guerrero [facility] ([id number]) (ALB,T.PRO,BILI Medical Branch T,BU/BC,ALT,AST,ALK PHOS) BASIC METABOLIC PANEL 2020-05-30 20:13:[address] [facility] (NA, K, CL, CO2, GLUCOSE, Medica l Branch BUN, CREATININE, CA) CBC WITH DIFF 2020-05-30 20:13:00 Dash Guerrero [facility] PROTHROMBIN TIME / INR 2020-05-30 20:13:00 Dash Guerrero [facility] ACTIVATED PARTIAL 2020-05-30 20:13:00 Dash Guerrero [facility] THRMPLAS [facility] Branch COVID-19 (ID NOW RAPID 2020-05-30 20:13:00 Dash Guerrero [facility] TESTING) Medical Branch LAB ONLY COVID 2020-05-30 20:13:00 Dash Guerrero [facility] INTERPRETATION [facility] BLOOD CULTURE SCREEN 2020-05-30 20:09:00 Dash Guerrero [facility] acute hospital CONSENT/REFUSAL FOR 2020-05-30 19:22:16 Doctor Georgia [facility] DIAGNOSIS AND TREATMENT [facility] [place] URINALYSIS 2020-05-27 00:16:[address] [facility] HEPATIC FUNCTION PANEL 2020-05-26 23:25:00 Umm Mares [facility] ([id number]) (ALB,T.PRO,BILI Medical Branch T,BU/BC,ALT,AST,ALK PHOS) BASIC METABOLIC PANEL 2020-05-26 23:25:00 Umm Mares [facility] (NA, K, CL, CO2, GLUCOSE, Medica l Branch BUN, CREATININE, CA) CBC WITH DIFF 2020-05-26 23:25:[address] [facility] CONSENT/REFUSAL FOR 2020-05-26 22:59:39 Doctor Ho [facility] DIAGNOSIS AND TREATMENT [facility]IN[facility]YSIS 2020-05-13 18:34:00 Dottie Troncoso [facility] CT ABDOMEN PELVIS W 2020-05-13 17:26:18 Dottie Troncoso [facility] CONTRAST [facility] Branch LIPASE 2020-05-13 16:47:00 Dottie Troncoso [facility] HEPATIC FUNCTION PANEL 2020-05-13 16:47:00 Dottie Troncoso [facility] ([id number]) (ALB,T.PRO,BILI Medical [place] T,BU/BC,ALT,AST,ALK PHOS) BASIC METABOLIC PANEL 2020-05-13 16:47:00 Dottie Troncoso [facility] (NA, K, CL, CO2, GLUCOSE, Medica l Branch BUN, CREATININE, CA) CBC WITH DIFF 2020-05-13 16:47:00 Dottie Troncoso [facility] NOTICE OF PRIVACY 2020-05-13 16:27:55 Doctor Georgia [facility] PRACTICES [facility] CONSENT/REFUSAL FOR 2020-05-13 16:23:10 Doctor Ho [facility] DIAGNOSIS AND TREATMENT [facility] [place] EXTERNAL PROVIDER RECORDS 2019-12-10 05:01:00 Doctor Unassdudley, [facility] US ABDOMEN LIMITED 2019-12-08 18:04:34 Lesley Bee [facility] XR CHEST 1 VW 2019-12-08 17:33:32 Lesley Bee [facility] CT ABDOMEN PELVIS WO 2019-12-08 16:24:35 Lesley Bee [facility] CONTRAST [facility] Branch COMP. METABOLIC PANEL 2019-12-08 16:15:[address] [facility] ([id number]) Medical [place] CBC WITH DIFF 2019-12-08 16:15:00 Lesley Bee [facility] URINALYSIS 2019-12-08 16:13:00 Lesley Bee [facility] POCT TEST 2019-12-08 16:12:00 Lesley Bee [facility] NOTICE OF PRIVACY 2019-12-08 15:46:34 Doctor Unabeverly, [facility] PRACTICES [facility] CONSENT/REFUSAL FOR 2019-12-08 15:46:19 Doctor Unabeverly, [facility] DIAGNOSIS AND TREATMENT [facility] POCT URINALYSIS AUTO 2019-12-08 15:09:00 Abhijit Mcgowan [facility] acute hospital PHYSICIAN CERTIFICATION 2019-09-29 05:01:00 Doctor Georgia, [facility] STATEMENT [facility] AGREEMENTS AUTHORIZATIONS 2019-03-28 06:01:00 Doctor Georgia, [facility] AND IRREVOCABLE [facility] ASSIGNMENTS (FORM 2000) Encounters Start End Encounter Admission Attending Care Care Encounter Source Date/Time Date/Time Type Type Clinicians Facility Department ID 2021-09-19 [facility] [id number] Common 14:12:[id number] [facility] 2021-03-09 [facility] [id number] Common 13:01:40 [facility] [id number] [facility] 2021-03-09 Outpatient Pool [facility]C [facility] [id number] Common 13:01:[address] [facility] 2020-12-12 Emergency [facility] [id number] Univers 22:28:34 ity of [facility] 2020-12-12 Emergency [facility] [id number] Univers 21:17:57 ity of [facility] 2020-12-12 Emergency [facility] [id number] Univers 20:44:10 ity of [facility] 2020-12-12 Emergency [facility] [id number] Univers 19:18:03 ity of [facility] 2020-12-12 Emergency [facility] [id number] Univers 13:38:38 ity of [facility] 2020-12-12 Emergency [facility] [id number] Univers 12:59:09 ity of [facility] 2020-12-12 Emergency [facility] [id number] Univers 10:04:40 ity of [facility] 2020-12-11 Emergency [facility] [id number] Univers 01:01:21 ity of [facility] 2021-09-26 2021-09-26 ambulatory STLMLC STLMLC [id number] Common 00:00:00 00:00:00 [facility] 2021-09-19 2021-09-19 ambulatory STLMLC STLMLC [id number] Common 00:00:00 00:00:00 [facility] 2021-08-26 2021-08-26 Emergency X Torey KAY [facility] ERT [id number] Univers 08:39:00 14:03:00 ity of [facility] 2021-08-26 2021-08-26 Emergency Torey Kay [facility] 1.2.840.114 [id number] Univers 08:39:00 14:03:00 Joanie VELASCO 350.1.13.10 i ty of [place] [phone] [facility] 08 Branch 2021-03-08 2021-03-08 Daniela Fisher [facility] 1.2.840.114 [id number] Univers 00:00:00 00:00:00 Johnson VELASCO 350.1.13.10 ity of [place] [facility] [phone] Id dical NAL 092 Branch BUILDING 2020-12-23 2020-12-23 Outpatient R [facility] [id number] Univers 00:00:00 00:00:00 ity of [facility] 2020-12-14 2020-12-14 Transition FILEMON Redman 1.2.840.114 [id number] Univers 00:00:00 00:00:00 of Care Josselin MATHEWY 350.1.13.10 i ty [place] [phone] [facility] 403 Branch 2020-12-05 2020-12-12 Inpatient X KAMERONRAHUL [facility] CHOLO [id number] Univers 13:25:00 15:45:00 AD ity of [facility] 2020-12-05 2020-12-12 [facility] 1.2.840. 114 [id number] Univers 13:25:00 15:45:00 Encounter Ad Remy 350.1.13.10 ity of [place] 4.2.7.2.686 [facility] [place] [phone] [facility] 081 Branch 2020-11-01 2020-11-01 Refsherron Doll [facility] 1.2.840.114 [id number] Univers 00:00:00 00:00:00 [facility] 350.1.13.10 i ty of [place] 4.2.7.2.686 [facility] [place] [phone] [place] 970952 Branch Office Building 2020-10-12 2020-10-12 Refsherron Fisher [facility] 1.2.840.114 [id number] Univers 00:00:00 00:00:00 Johnson Velasco 350.1.13.10 ity of [place] 4.2.7.2.686 [facility] [phone] [place] [id number] Branch Building 2020-10-07 2020-10-07 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 Ny Hutton [facility] Main [facility] 1.2.8 40.114 [id number] Univers 10:29:15 10:44:15 Visit Anish Carrera 350.1.13.10 ity of [place] [phone] Id dical [facility] 353 Branch Building 2020-10-07 2020-10-07 Outpatient R [facility] [id number] Univers 10:30:00 10:30:00 [id number] ity [facility] 2020-10-07 2020-10-07 Outpatient R ANDI, [facility] [id number] Univers 10:30:00 10:30:00 ANISH ity [facility] 2020-09-15 2020-09-15 Outpatient R [facility] [id number] Univers 10:00:00 10:00:00 [id number] ity [facility] 2020-09-10 2020-09-10 Refill Lavon [facility] 1.2.840.114 [id number] Univers 00:00:00 00:00:00 [facility] 350.1.13.10 i ty of [place] 4.2.7.2.686 T roxy Baez [phone] [address] Office Building 2020-09-09 2020-09-09 Orders Doctor CIPRIANO 1.2.840.114 [id number] Univers 00:00:00 00:00:00 Only Unassigned, ODILON 350.1.13.10 ity of [facility] 4.2.7.2.686 [place] [phone] [address] 2020-09-06 2020-09-06 Telephone CIPRIANO Machado 1.2.337.241 [id number] Univers 00:00:00 00:00:00 Bailey CHURCHY 350.1.13.10 i ty of HOSPITAL 4.2.7.2.686 [place] [id number] [place] 800362 [place] 2020-08-13 2020-08-13 Refill Lavon [facility] 1.2.840.114 [id number] Univers 00:00:00 00:00:00 [facility] 350.1.13.10 i ty of [place] 4.2.7.2.686 [place] Camilo Baez [phone] [address] Office Building 2020-08-09 2020-08-09 Outpatient R [facility] [id number] Univers 12:00:00 12:00:00 [id number] ity of [facility] 2020-08-09 2020-08-09 Outpatient R ANDI [facility] [id number] Univers 12:00:00 12:00:00 ANISH ity of [facility] 2020-08-09 2020-08-09 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 Ny Hutton [facility] Main [facility] 1.2.8 40.114 [id number] Univers 11:42:15 11:57:15 Visit Anish Carrera 350.1.13.10 ity of [place] Profess[place] [phone] Id dical nal 353 Branch [facility] 2020-08-09 2020-08-09 Orders Doctor CIPRIANO 1.2.840.114 [id number] Univers 00:00:00 00:00:00 Only Unassigned, ODILON 350.1.13.10 ity of [facility] 4.2.7.2.686 [place] [phone] [facility] 009 Branch 2020-07-13 2020-07-14 Emergency Aufderheide, Shi Ngozi TRAUMA 1.2.840.114 [id number] Univers 15:14:00 19:27:00 [facility] [place] 350.1.13.10 it[place] [phone] [facility] 014 [place] 2020-07-13 2020-07-13 Office Castillo, [facility] 1.2.840.114 [id number] Univers 09:44:58 11:19:02 Visit Johnson Velasco 350.1.13.10 ity of [place] [phone] Id dical nal 092 [facility] 2020-07-13 2020-07-13 Outpatient JOHNSON FISHER [facility] [id number] Univers 09:40:00 09:40:00 JOHNSON FISHER [id number] ity of [facility] 2020-07-13 2020-07-13 Outpatient JOHNSON OSPINA [facility] [id number] Univers 09:40:00 09:40:00 JOHNSON FISHER ity of [facility] 2020-07-13 2020-07-13 Letter CIPRIANO Hernandez 1.2.840.114 [id number] Univers 00:00:00 00:00:00 (Out) Fercho WILSON 350.1.13.10 ity of HOSPITAL 4.2.7.2.686 [place] [id number] [facility] 043 Branch 2020-07-08 2020-07-08 Orders Doctor CIPRIANO 1.2.840.114 [id number] Univers 00:00:00 00:00:00 Only Unassigned, ODILON 350.1.13.10 ity of [facility] 4.2.7.2.686 [place] [phone] [facility] 009 [place] 2020-07-07 2020-07-07 Orders Doctor COTA 1.2.840.114 [id number] Univers 00:00:00 00:00:00 Only Unassigned, ODILON 350.1.13.10 ity of [facility] 4.2.7.2.686 [place] [phone] [facility] 009 [place] 2020-07-07 2020-07-[address] [facility] 1.2.464.367 [id number] Univers 00:00:00 00:00:00 Angy PRIMARY 350.1.13.10 it y of [facility] [place]2.[place].2.[place] [facility] [phone] [address] 2020-07-06 2020-07-06 Emergency [facility] 1.2.582.833 [id number] Univers 18:48:00 23:59:00 Lisandra Velasco 350.1.13.10 ity of [place].686 [place] [phone] [place] 800364 [place] 2020-07-04 2020-07-04 [facility] 1.2.840.114 [id number] Univers 12:16:00 18:32:00 Lety Velasco 350.1.13.10 ity of [place] 4.2.7.2.686 [facility] [phone] [facility] 084 Branch 2020-06-26 2020-06-28 Emergency Sabrina Ruby 1.2.840 .114 [id number] Univers 15:08:00 18:15:00 Caio Hernandez Odilon 350.1.13.10 ity of [facility] 4.2.7.2.686 [place] [phone] [place] [id number] Branch 2020-06-28 2020-06-[address] [facility] 1.2.840.114 [id number] Univers 00:00:00 00:00:00 Johnson Velasco 350.1.13.10 ity of [place] 4.2.7.2.686 [facility] [phone] [place] 724562 [facility] 2020-06-22 2020-06-22 Outpatient STLMLC STLC [id number] Common 00:00:00 00:00:00 [facility] 2020-05-30 2020-06-02 Emergency Dash Guerrero [facility] 1.2.840. 114 [id number] Univers 14:32:00 11:50:00 Ad Remy 350.1.13.10 ity of [place] 4.2.7.2.686 [facility] [phone] [address] 2020-05-31 2020-05-31 Outpatient JUAN M [facility] [id number]-20 Univers 09:45:00 09:45:00 [facility] [id number] ity of [facility] 2020-05-31 2020-05-31 Outpatient R JUAN M [facility] [id number] Univers 09:45:00 09:45:00 ABHIJIT ity [facility] 2020-05-26 2020-05-[address] [facility] 1.2.961.655 [id number] Univers 18:10:00 21:41:00 Umm Velasco 350.1.13.10 ity of [place] 4.2.7.2.686 [facility] [phone] [address] 2020-05-26 2020-05-26 Orders Doctor COTA 1.2.840.114 [id number] Univers 00:00:00 00:00:00 Only Unassigned, ODILON 350.1.13.10 ity of [facility] 4.2.7.2.686 [place] [phone] [address] 2020-05-13 2020-05-13 Emergency [facility] 1.2.840.114 [id number] Univers 11:30:00 17:34:00 Dottie Velasco 350.1.13.10 ity of [place] [phone] [address] 2020-05-13 2020-05-13 Urgent Provider, [facility] Care [facility] 1.2.840.114 [id number] Univers 10:10:06 11:10:27 Sarah Guerin [facility] 350.1.13.10 ity of [place] 4.2.7.2.686 [place] Professio [phone] [address] Office Building One 2020-05-13 2020-05-13 Outpatient R [facility] [id number] Univers 11:00:00 11:00:00 [id number] ity [facility] 2020-05-13 2020-05-13 Outpatient R [facility] [id number] Univers 11:00:00 11:00:00 SARAH ity [facility] 2020-05-13 2020-05-13 Orders Doctor COTA 1.2.840.114 [id number] Univers 00:00:00 00:00:00 Only Unassigned, ODILON 350.1.13.10 ity of [place] [facility] 4.2.7.2.686 [place] [phone] [address] 2020-04-19 2020-04-[address] [facility] 1.2.840.114 [id number] Univers 00:00:00 00:00:00 Johnson Velasco 350.1.13.10 ity of [place] [phone] [place] 724562 [facility] 2020-04-09 2020-04-[address] [facility] 1.2.840.114 [id number] Univers 00:00:00 00:00:00 Johnson Velasco 350.1.13.10 ity of [place] [phone] [address] 2020-03-23 2020-03-[address] [facility] 1.2.840.114 [id number] Univers 09:29:15 10:11:33 Visit Johnson Velasco 350.1.13.10 ity of [place] [phone] [address] 2020-03-23 2020-03-23 Outpatient JOHNSON OSPINA [facility] [id number] Univers 09:20:00 09:20:00 JOHNSON FISHER [id number] [facility] 2020-03-23 2020-03-23 Outpatient JOHNSON OSPINA [facility] [id number] Univers 09:20:00 09:20:00 JOHNSON FISHER [facility] 2020-03-15 2020-03-[address] [facility] 1.2.840.114 [id number] Univers 00:00:00 00:00:00 Johnson Velasco 350.1.13.10 ity of [place] [phone] [address] 2019-12-10 2019-12-10 Orders Doctor CIPRIANO 1.2.840.114 [id number] Univers 00:00:00 00:00:00 Only Unassigned, ODILON 350.1.13.10 ity of [place] [facility] 4.2.7.2.686 [place] [phone] [address] 2019-12-09 2019-12-09 [facility] 1.2.840.114 [id number] Univers 00:00:00 00:00:00 Management Kari Velasoc 350.1.13.10 ity of [place] [phone] [facility] 204 [facility] 2019-12-08 2019-12-08 Emergency [facility] 1.2.121.579 [id number] Univers 11:01:00 14:17:00 Lesley Bah Enio 350.1.13.10 i ty of [place].2.686 [place] [phone] [facility] 084 [place] 2019-12-08 2019-12-08 Office [facility] 1.2.840.114 [id number] Univers 09:53:04 10:44:29 Visit [facility] Enio 350.1.13.10 i ty of [place] [phone] [facility] 204 [facility] 2019-12-08 2019-12-08 Outpatient R [facility] [id number]-20 Univers 10:15:00 10:15:00 [facility] [id number] ity [facility] 2019-12-08 2019-12-08 Outpatient R [facility] [id number] Univers 10:15:00 10:15:00 [facility] 2019-12-08 2019-12-08 Orders Doctor COTA 1.2.840.114 [id number] Univers 00:00:00 00:00:00 Only Unassigned, ODILON 350.1.13.10 ity of [place] [facility] 4.2.7.2.686 [place] [phone] [facility] 009 [place] 2019-12-06 2019-12-[address] [facility] 1.2.840.114 [id number] Univers 00:00:00 00:00:00 Johnson Velasco 350.1.13.10 ity of [place] [phone] [facility] 092 [facility] 2019-10-17 2019-10-[address] [facility] 1.2.840.114 [id number] Univers 00:00:00 00:00:00 Johnson Herron Enio 350.1.13.10 ity of [place] [phone] [address] 2019-09-29 2019-09-29 Orders Doctor CIPRIANO 1.2.840.114 [id number] Univers 00:00:00 00:00:00 Only Unassigned, ODILON 350.1.13.10 ity of [place] [facility] 4.2.7.2.686 [place] [phone] [address] 2019-09-23 2019-09-23 [facility] 1.2.840.114 [id number] Univers 00:00:00 00:00:00 Johnson Gopal Enio 350.1.13.10 ity of [place] [phone] [address] 2019-08-07 2019-08-07 [facility] 1.2.840.114 [id number] Univers 00:00:00 00:00:00 Johnson Velasco 350.1.13.10 ity of [place].2.[place] [phone] [address] 2019-05-21 2019-05-21 [facility] 1.2.840.114 [id number] Univers 00:00:00 00:00:00 Johnson Velasco 350.1.13.10 ity of [place].2.[place] [phone] [address] 2019-04-24 2019-04-24 [facility] 1.2.840.114 [id number] Univers 00:00:00 00:00:00 Johnson Velasco 350.1.13.10 ity of [place] [phone] [address] 2019-04-17 2019-04-17 [facility] 1.2.840.114 [id number] Univers 00:00:00 00:00:00 Johnson Velasco 350.1.13.10 ity of [place].2.[place] [phone] Id dical nal 092 [facility] 2019-04-07 2019-04-07 Telephone Castillo [facility] 1.2.840.114 [id number] Univers 00:00:00 00:00:00 Johnson Velasco 350.1.13.10 ity of [place].2.[place] [phone] Id dical nal 092 [facility] 2019-03-28 2019-03-28 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, 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 [facility] 1.2.840.114 [id number] Univers 11:02:20 11:17:20 Visit Johnson Fisher 350.1.13 .10 ity of [place].2.[place] [phone] Id dical nal 353 [facility] 2019-03-28 2019-03-28 Office Castillo [facility] 1.2.840.114 [id number] Univers 09:56:36 10:59:16 Visit Johnson Velasco 350.1.13.10 ity of [place].2.[place] [phone] Id dical nal 092 [facility] 2019-03-28 2019-03-28 Orders Doctor COTA 1.2.840.114 [id number] Univers 00:00:00 00:00:00 Only Unassigned, ODILON 350.1.13.10 ity of [facility] 4.2.7.2.686 [place] [phone] [facility] 009 Branch 2018-11-05 2018-11-05 Emergency E [facility] 7500 Memoria 11:03:00 11:03:00 melba reilly [facility] 2017-08-24 2017-08-24 Outpatient Trish Phillips 14 [id number] Common 08:45:00 08:45:00 t [facility] 2017-08-01 2017-08-01 Outpatient Trish Chamberst 14 [id number] Common 10:15:00 10:15:00 [facility] it SendTask [facility] Results Test Description Test Time Test Comments Results Result Comments Source AC PANEL 21 + LACTIC ACID 2021-08-26 14:22:59 Test Item Value Reference Range Interpretation Comme nts PH (test code = 3077525026) 7.32-7.42 PCO2 ZULEYMA (test code = See_Comment [Auto mated message] The 2901151533) system which ge nerated this result transmit karly reference range: 41 - 51 mmHg. The reference range was not used to interpret th is result as normal/abnormal . PO2 ZULEYMA (test code = See_Comment [Autom ated message] The 9846081380) system which ge nerated this result transmit karly reference range: 25 - 40 mmHg. The reference range was not used to interpret th is result as normal/abnormal . HCO3 ZULEYMA (test code = See_Comment L [Auto mated message] The 6241443764) system which ge nerated this result transmit karly reference range: 24 - 28 mEq/L. The reference range was not used to interpret th is result as normal/abnormal . AC VBE(BEAKER) (test code = mEq/L 6380022324) THB ZULEYMA (test code = 14.7 g/dL 12-16 8475990817) %O2HB ZULEYMA (test code = 50.1 % 52-63 L 4092878445) %COHB ZULEYMA (test code = 1.0 % 0-1.5 6243720594) %METHB ZULEYMA (test code = 0.3 % 0.4-1.5 L 6805312724) VOL%O2 ZULEYMA (test code = 10.3 % 6-12 8755367860) NA (test code = 4937392062) 139 mmol/L 135-145 K+ (test code = 0250085339) 3.7 mmol/L 3.5-5 AC CA IONZ (test code = 5.10 mg/dL 4.5-5.3 0522821981) GLUCOSE (test code = 92 mg/dL 70-110 9161289243) LACTIC ACID (test code = 1.49 mmol/L 0.5-2.2 2112079205) Lab Interpretation (test code = Abnormal 90213-5) [facility] METABOLIC PANEL (NA, K, CL, CO2, GLUCOSE, BUN, CREATININE, CA)2020-12-12 11:05:50 Test Item Value Reference Range Interpretation Comments NA (test code = 133 mmol/L 135-145 L [id number]) K (test code = 5.0 mmol/L 3.5-5.0 7197145481) CL (test code = 105 mmol/L 98-108 3734153014) CO2 TOTAL (test code = 24 mmol/L 23-31 4149744988) AGAP (test code = 2-16 9285803602) BUN (test code = 9 mg/dL 7-23 9967901665) GLUCOSE (test code = 93 mg/dL 70-110 5751049629) CREATININE (test code = 0.57 mg/dL 0.50-1.04 2601601756) CALCIUM (test code = 9.8 mg/dL 8.6-10.6 9576351962) eGFR (test code = mL/min/1.73m2 1224421982) ANTHONY (test code = ANTHONY) Association of [...] tests). Lab Interpretation Abnormal (test code = 02958-0) [facility] 11:05:50 Test Item Value Reference Range Interpretation Comments MAGNESIUM (test code = 1048866147) 2.3 mg/dL 1.7-2.4 Lab Interpretation (test code = Normal 00861-2) [facility]2021-[facility]-31 11:05:30 Test Item Value Reference Range Interpretation Comments PHOSPHORUS (test code = 1420602225) 4.1 mg/dL 2.5-5.0 Lab Interpretation (test code = Normal 05593-8) [facility] CenterOSMOLALITY, SERUM OR [id number] 17:26:02 Test Item Value Reference Range Interpretation Comments OSMOLALITY (test code = See_Comment [Au tomated message] 4203553692) The system [employer] generated this result transmitted ref erence range: 278 - 30 5 mOsm/kg. The re ference range was not u sed to interpret this result as normal/abnor mal. Lab Interpretation (test Normal code = 86824-8) [facility] CenterVancomycin Random [id number] 15:46:31 Test Item Value Reference Range Interpretation Comments VANCO RANDOM (test code = 8.9 ug/mL 9162714353) [facility]BAS[facility]OLIC PANEL (NA, K, CL, CO2, GLUCOSE, BUN, CREATININE, CA)2020-12-11 10:02:40 Test Item Value Reference Range Interpretation Comments NA (test code = 135 mmol/L 135-145 4153145942) K (test code = 4.7 mmol/L 3.5-5.0 5959525873) CL (test code = 107 mmol/L 98-108 5363570786) CO2 TOTAL (test code 24 mmol/L - = 5029405331) AGAP (test code = 2-16 5786915704) BUN (test code = 9 mg/dL 7-23 4530615750) GLUCOSE (test code = 98 mg/dL 70-110 0871330545) CREATININE (test code 0.62 mg/dL 0.50-1.04 = 4892099770) CALCIUM (test code = 9.5 mg/dL 8.6-10.6 7765551855) eGFR (test code = mL/min/1.73m2 0591023303) ANTHONY (test code = ANTHONY) Association of [...] or urine or abnormalities in imaging tests). [facility] WITH [id number] 09:45:31 Test Item Value Reference Range Interpretation Comments WBC (test code = See_Comment [Automated 5690-2) message] The sy stem which generated this result transmitted reference range : 4.30 - 11.10 10*3/?L. The reference range was not used to interpret this result as normal/abnormal . RBC (test code = See_Comment L [Automated 909-8) message] The sy stem which generated this [...] (test code = 55.5 fL 39.0-49.9 H 96560-0) RDW-CV (test code = 15.6 % 12.0-15.5 H 788-0) PLT (test code = See_Comment [Automated 777-3) message] The sy stem which generated this result transmitted reference range : 166 - 358 10*3/ ?L. The reference r miky was not used to interpret this result as normal/abnormal . MPV (test code = 11.5 fL 9.5-12.9 03468-3) NRBC/100 WBC (test See_Comment [Automat ed code = 0033026216) message] The system which generated this result transmitted reference range : 0.0 - 10.0 /100 WBCs. The refer ence range was not u sed to interpret th is result as normal/abnormal . NRBC x10^3 (test code See_Comment [Auto mated = 6705309472) message] The s ystem which generated this result transmitted reference range : 10*3/?L. The reference range was not used to interpret this result as normal/abnormal . GRAN MAT (NEUT) % 44.2 % (test code = 770-8) IMM GRAN % (test code 5.40 % = 9137876518) LYMPH % (test code = 35.6 % 736-9) MONO % (test code = 14.1 % 5905-5) EOS % (test code = 0.3 % 713-8) BASO % (test code = 0.4 % 706-2) GRAN MAT x10^3(ANC) 2.99 10*3/uL 1.88-7.09 (test code = 9795933187) IMM GRAN x10^3 (test 0.37 10*3/uL 0.00-0.06 H code = 1461267044) LYMPH x10^3 (test code 2.42 10*3/uL 1.32-3.29 = 731-0) MONO x10^3 (test code 0.96 10*3/uL 0.33-0.92 H = 742-7) EOS x10^3 (test code = <0.03 0.03-0.39 L 711-2) BASO x10^3 (test code 0.03 10*3/uL 0.01-0.07 = 704-7) Lab Interpretation Abnormal (test code = 45620-7) [facility]MAG[facility]2021-[facility]-30 09:37:24 Test Item Value Reference Range Interpretation Comments MAGNESIUM (test code = 3530158980) 2.3 mg/dL 1.7-2.4 Lab Interpretation (test code = Normal 86787-7) [facility]PH[facility]2021-[facility]-30 09:37:04 Test Item Value Reference Range Interpretation Comments PHOSPHORUS (test code = 9112313915) 2.8 mg/dL 2.5-5.0 Lab Interpretation (test code = Normal 79296-0) [facility] CenterURIC [id number] 09:36:44 Test Item Value Reference Range Interpretation Comments URIC ACID (test code = 9068891566) 3.2 mg/dL 2.9-6.0 Lab Interpretation (test code = Normal 74761-6) [facility] (NA, K, CL, CO2, GLUCOSE, BUN, CREATININE, CA)2020-12-10 20:08:36 Test Item Value Reference Range Interpretation Comments NA (test code = 126 mmol/L 135-145 L 6075535274) K (test code = 3.7 mmol/L 3.5-5.0 2984160052) CL (test code = 102 mmol/L 98-108 7592292296) CO2 TOTAL (test code = 21 mmol/L 23-31 L 6851844856) AGAP (test code = 2-16 6601189299) BUN (test code = 9 mg/dL 7-23 7090647783) GLUCOSE (test code = 116 mg/dL 70-110 H 8432913715) CREATININE (test code = 0.72 mg/dL 0.50-1.04 0723628593) CALCIUM (test code = 8.9 mg/dL 8.6-10.6 5073777592) eGFR (test code = mL/min/1.73m2 7452285211) ANTHONY (test code = ANTHONY) Association of [...] tests). Lab Interpretation Abnormal (test code = 98555-1) [facility] CenterBLOOD CULTURE [id number] 20:01:33 Test Item Value Reference Range Interpretation Comments Blood Culture-Aerobic No organisms No growth Previo us (test code = 42692-6) isolated prelim inary verified result was Culture [...] Culture-Anaerobic isolated preliminar y (test code = 46779-5) verifi ed result was Culture In Progress [...] CDT Lab Interpretation Normal (test code = 11797-9) [facility] CenterBL[facility] CULT[facility] [id number] 20:01:33 Test Item Value Reference Range Interpretation Comments Blood Culture-Aerobic No organisms No growth Previo us (test code = 43131-9) isolated prelim inary verified result was Culture [...] Culture-Anaerobic isolated preliminar y (test code = 24020-1) verifi ed result was Culture In Progress [...] CDT Lab Interpretation Normal (test code = 95542-9) [facility]PH[facility]2021-10-29 19:00:05 Test Item Value Reference Range Interpretation Comments PHOSPHORUS (test code = 8262178572) 2.5 mg/dL 2.5-5.0 Lab Interpretation (test code = Normal 68390-0) [facility] WITH [id number] 18:49:57 Test Item Value Reference Range Interpretation [...] (test code = 52.4 fL 39.0-49.9 H 39590-9) RDW-CV (test code = 15.2 % 12.0-15.5 788-0) PLT (test code = See_Comment L [Automated 777-3) message] The sy stem which generated this result transmitted reference range : 166 - 358 10*3/ ?L. The reference r miky was not used to interpret this result as normal/abnormal . MPV (test code = 10.8 fL 9.5-12.9 28128-3) NRBC/100 WBC (test See_Comment [Automat ed code = 8721355890) message] The system which generated this result transmitted reference range : 0.0 - 10.0 /100 WBCs. The refer ence range was not u sed to interpret th is result as normal/abnormal . NRBC x10^3 (test code See_Comment [Auto mated = 6099953408) message] The s ystem which generated this result transmitted reference range : 10*3/?L. The reference range was not used to interpret this result as normal/abnormal . GRAN MAT (NEUT) % 47.2 % (test code = 770-8) IMM GRAN % (test code 5.80 % = 8468144288) LYMPH % (test code = 29.2 % 736-9) MONO % (test code = 17.1 % 5905-5) EOS % (test code = 0.4 % 713-8) BASO % (test code = 0.3 % 706-2) GRAN MAT x10^3(ANC) 3.14 10*3/uL 1.88-7.09 (test code = 4677573594) IMM GRAN x10^3 (test 0.39 10*3/uL 0.00-0.06 H code = 4240387379) LYMPH x10^3 (test code 1.95 10*3/uL 1.32-3.29 = 731-0) MONO x10^3 (test code 1.14 10*3/uL 0.33-0.92 H = 742-7) EOS x10^3 (test code = 0.03 10*3/uL 0.03-0.39 711-2) BASO x10^3 (test code <0.03 0.01-0.07 = 704-7) POLYCHROMASIA (test 2+ See_Comment [Automa karly code = 96737-1) message] The system which generated this result transmitted reference range : 2+. The referen ce range was not u sed to interpret th is result as normal/abnormal . BANDS (test code = Increased A 2740016512) Lab Interpretation Abnormal (test code = 31310-2) [facility] Trough Level - Draw random trough at [id number] 16:37:29 Test Item Value Reference Range Interpretation Comments VANCO TROUGH (test code 19.4 ug/mL 10.0-20.0 = 9226407420) ANTHONY (test code = ANTHONY) Toxic Range: ?>20 ug/mL 15-20 ug/mL is recommended for severe infection or when Vancomycin RAHEEM is greater than or equal to 2. Lab Interpretation (test Normal code = 88153-6) [facility]MAG[facility]2021-10-29 11:49:21 Test Item Value Reference Range Interpretation Comments MAGNESIUM (test code = 6732250084) 2.1 mg/dL 1.7-2.4 Lab Interpretation (test code = Normal 54130-3) [facility] METABOLIC PANEL (NA, K, CL, CO2, GLUCOSE, BUN, CREATININE, CA)2020-12-10 11:49:05 Test Item Value Reference Range Interpretation Comments NA (test code = 129 mmol/L 135-145 L 3239139234) K (test code = 3.0 mmol/L 3.5-5.0 L 7763489637) CL (test code = 103 mmol/L 98-108 1493753769) CO2 TOTAL (test code = 25 mmol/L 23-31 4338769871) AGAP (test code = 2-16 L 7179271823) BUN (test code = 10 mg/dL 7-23 2286863330) GLUCOSE (test code = 123 mg/dL 70-110 H 0583140763) CREATININE (test code = 0.84 mg/dL 0.50-1.04 5567148857) CALCIUM (test code = 8.9 mg/dL 8.6-10.6 5247727531) eGFR (test code = mL/min/1.73m2 3729739317) ANTHONY (test code = ANTHONY) Association of [...] tests). Lab Interpretation Abnormal (test code = 17202-6) [facility]PH[facility]2021-[facility]-29 11:48:59 Test Item Value Reference Range Interpretation Comments PHOSPHORUS (test code = 6388468130) 1.0 mg/dL 2.5-5.0 L Lab Interpretation (test code = Abnormal 75886-6) [facility] (NA, K, CL, CO2, GLUCOSE, BUN, CREATININE, CA)2020-12-10 02:21:51 Test Item Value Reference Range Interpretation Comments NA (test code = 130 mmol/L 135-145 L 3873430606) K (test code = 3.6 mmol/L 3.5-5.0 2349212471) CL (test code = 106 mmol/L 98-108 9429072450) CO2 TOTAL (test code = 21 mmol/L 23-31 L 8900340278) AGAP (test code = 2-16 0413005139) BUN (test code = 9 mg/dL 7-23 1079754513) GLUCOSE (test code = 142 mg/dL 70-110 H 5690204541) CREATININE (test code = 0.59 mg/dL 0.50-1.04 3747288213) CALCIUM (test code = 8.4 mg/dL 8.6-10.6 L 9077795573) eGFR (test code = mL/min/1.73m2 8448746042) ANTHONY (test code = ANTHONY) Association of [...] tests). Lab Interpretation Abnormal (test code = 01847-0) [facility] Trough Level - Draw no more than 60 minutes before the 1330 dose.2020-12-09 20:29:37 Test Item Value Reference Range Interpretation Comments VANCO TROUGH (test code 20.9 ug/mL 10.0-20.0 H = 1023510090) ANTHONY (test code = ANTHONY) Toxic Range: ?>20 ug/mL 15-20 ug/mL is recommended for severe infection or when Vancomycin RAHEEM is greater than or equal to 2. Lab Interpretation (test Abnormal code = 21279-1) [facility]OLIC [facility] (NA, K, CL, CO2, GLUCOSE, BUN, CREATININE, CA)2020-12-09 11:48:35 Test Item Value Reference Range Interpretation Comments NA (test code = 129 mmol/L 135-145 L 6452222002) K (test code = 2.8 mmol/L 3.5-5.0 LL 6263911925) CL (test code = 104 mmol/L 98-108 1726519827) CO2 TOTAL (test code = 20 mmol/L 23-31 L 5500950388) AGAP (test code = 2-16 9512531636) BUN (test code = 10 mg/dL 7-23 9732198565) GLUCOSE (test code = 120 mg/dL 70-110 H 6814821670) CREATININE (test code = 0.68 mg/dL 0.50-1.04 1266322254) CALCIUM (test code = 7.9 mg/dL 8.6-10.6 L 8709356669) eGFR (test code = mL/min/1.73m2 2552819086) ANTHONY (test code = ANTHONY) Association of [...] tests). Lab Interpretation Abnormal (test code = 30479-3) [facility]2021-[facility]-28 11:47:08 Test Item Value Reference Range Interpretation Comments MAGNESIUM (test code = 1379340050) 2.2 mg/dL 1.7-2.4 Lab Interpretation (test code = Normal 75045-2) [facility]2021-[facility]-28 11:46:48 Test Item Value Reference Range Interpretation Comments PHOSPHORUS (test code = 0010708985) 2.4 mg/dL 2.5-5.0 L Lab Interpretation (test code = Abnormal 16364-5) [facility] METABOLIC PANEL (NA, K, CL, CO2, GLUCOSE, BUN, CREATININE, CA)2020-12-08 12:06:15 Test Item Value Reference Range Interpretation Comments NA (test code = 130 mmol/L 135-145 L 8532928216) K (test code = 2.8 mmol/L 3.5-5.0 LL 7169596098) CL (test code = 104 mmol/L 98-108 7641989308) CO2 TOTAL (test code = 19 mmol/L 23-31 L 9890109577) AGAP (test code = 2-16 4244452563) BUN (test code = 9 mg/dL 7-23 2081086373) GLUCOSE (test code = 114 mg/dL 70-110 H 1941289232) CREATININE (test code = 0.72 mg/dL 0.50-1.04 2238328475) CALCIUM (test code = 7.9 mg/dL 8.6-10.6 L 7737361807) eGFR (test code = mL/min/1.73m2 3024703874) ANTHONY (test code = ANTHONY) Association of [...] tests). Lab Interpretation Abnormal (test code = 43030-6) [facility]2021-[facility]-27 11:58:12 Test Item Value Reference Range Interpretation Comments MAGNESIUM (test code = 5741248187) 1.9 mg/dL 1.7-2.4 Lab Interpretation (test code = Normal 09141-3) [facility]2021-[facility]-27 11:57:52 Test Item Value Reference Range Interpretation Comments PHOSPHORUS (test code = 0820028507) 2.7 mg/dL 2.5-5.0 Lab Interpretation (test code = Normal 12847-3) [facility] Trough Level - Draw no more than 60 minutes before the 0130 dose.2020-12-08 07:49:28 Test Item Value Reference Range Interpretation Comments VANCO TROUGH (test code 18.4 ug/mL 10.0-20.0 = 3818134439) ANTHONY (test code = ANTHONY) Toxic Range: ?>20 ug/mL 15-20 ug/mL is recommended for severe infection or when Vancomycin RAHEEM is greater than or equal to 2. Lab Interpretation (test Normal code = 98623-4) [facility]CB WITH [id number] 13:32:28 Test Item Value Reference Range Interpretation Comments WBC (test code = See_Comment [Automated 0401-2) message] The sy stem which generated this result transmitted reference range : 4.30 - 11.10 10*3/?L. The reference range was not used to interpret this result as normal/abnormal . RBC (test code = See_Comment L [Automated 383-1) message] The sy stem which generated this [...] (test code = 50.9 fL 39.0-49.9 H 16673-5) RDW-CV (test code = 15.0 % 12.0-15.5 788-0) PLT (test code = See_Comment [Automated 777-3) message] The sy stem which generated this result transmitted reference range : 166 - 358 10*3/ ?L. The reference r miky was not used to interpret this result as normal/abnormal . MPV (test code = 11.3 fL 9.5-12.9 75749-6) NRBC/100 WBC (test See_Comment [Automat ed code = 5962305455) message] The system which generated this result transmitted reference range : 0.0 - 10.0 /100 WBCs. The refer ence range was not u sed to interpret th is result as normal/abnormal . NRBC x10^3 (test code See_Comment [Auto mated = 2911040834) message] The s ystem which generated this result transmitted reference range : 10*3/?L. The reference range was not used to interpret this result as normal/abnormal . GRAN MAT (NEUT) % 57.6 % (test code = 770-8) IMM GRAN % (test code 4.60 % = 0157229301) LYMPH % (test code = 27.4 % 736-9) MONO % (test code = 9.9 % 5905-5) EOS % (test code = 0.2 % 713-8) BASO % (test code = 0.3 % 706-2) GRAN MAT x10^3(ANC) 3.79 10*3/uL 1.88-7.09 (test code = 8417467518) IMM GRAN x10^3 (test 0.30 10*3/uL 0.00-0.06 H code = 6064271729) LYMPH x10^3 (test code 1.80 10*3/uL 1.32-3.29 = 731-0) MONO x10^3 (test code 0.65 10*3/uL 0.33-0.92 = 742-7) EOS x10^3 (test code = <0.03 0.03-0.39 L 711-2) BASO x10^3 (test code <0.03 0.01-0.07 = 704-7) SCHISTOCYTES (test 1+ A code = 800-3) BANDS (test code = Increased A 0606292627) Lab Interpretation Abnormal (test code = 98570-0) [facility]20[facility] 11:15:12 Test Item Value Reference Range Interpretation Comments MAGNESIUM (test code = 4998724779) 2.1 mg/dL 1.7-2.4 Lab Interpretation (test code = Normal 10958-6) [facility] (NA, K, CL, CO2, GLUCOSE, BUN, CREATININE, CA)2020-12-07 11:15:11 Test Item Value Reference Range Interpretation Comments NA (test code = 133 mmol/L 135-145 L 9724326201) K (test code = 3.2 mmol/L 3.5-5.0 L 6741447533) CL (test code = 106 mmol/L 98-108 0929017472) CO2 TOTAL (test code = 18 mmol/L 23-31 L 5564831728) AGAP (test code = 2-16 4744957911) BUN (test code = 9 mg/dL 7-23 9831320921) GLUCOSE (test code = 106 mg/dL 70-110 4560525184) CREATININE (test code = 0.64 mg/dL 0.50-1.04 8765292781) CALCIUM (test code = 8.2 mg/dL 8.6-10.6 L 6924564799) eGFR (test code = mL/min/1.73m2 3312725572) ANTHONY (test code = ANTHONY) Association of [...] tests). Lab Interpretation Abnormal (test code = 97728-6) [facility] (NA, K, CL, CO2, GLUCOSE, BUN, CREATININE, CA)2020-12-07 03:01:05 Test Item Value Reference Range Interpretation Comments NA (test code = 130 mmol/L 135-145 L 0182973703) K (test code = 3.4 mmol/L 3.5-5.0 L 7849511243) CL (test code = 105 mmol/L 98-108 2913526350) CO2 TOTAL (test code = 20 mmol/L 23-31 L 5029665819) AGAP (test code = 2-16 8070663506) BUN (test code = 10 mg/dL 7-23 0237363600) GLUCOSE (test code = 117 mg/dL 70-110 H 3188249748) CREATININE (test code = 0.69 mg/dL 0.50-1.04 7591961258) CALCIUM (test code = 7.9 mg/dL 8.6-10.6 L 2719265668) eGFR (test code = mL/min/1.73m2 4564481838) ANTHONY (test code = ANTHONY) Association of [...] tests). Lab Interpretation Abnormal (test code = 40374-4) [facility] (NA, K, CL, CO2, GLUCOSE, BUN, CREATININE, CA)2020-12-06 17:09:25 Test Item Value Reference Range Interpretation Comments NA (test code = 126 mmol/L 135-145 L 2101574480) K (test code = 2.9 mmol/L 3.5-5.0 LL 1431313246) CL (test code = 104 mmol/L 98-108 3978998446) CO2 TOTAL (test code = 13 mmol/L 23-31 L 8417023464) AGAP (test code = 2-16 9834669333) BUN (test code = 11 mg/dL 7-23 2798559288) GLUCOSE (test code = 147 mg/dL 70-110 H 3150038487) CREATININE (test code = 0.80 mg/dL 0.50-1.04 8369548461) CALCIUM (test code = 7.9 mg/dL 8.6-10.6 L 3995566061) eGFR (test code = mL/min/1.73m2 3763181017) ANTHONY (test code = ANTHONY) Association of [...] tests). Lab Interpretation Abnormal (test code = 41851-0) [facility] CenterMagnesium [id number] 17:05:09 Test Item Value Reference Range Interpretation Comments MAGNESIUM (test code = 3031807554) 2.3 mg/dL 1.7-2.4 Lab Interpretation (test code = Normal 80666-5) [facility] with [id number] 16:52:56 Test Item Value Reference Range Interpretation [...] (test code = 50.9 fL 39.0-49.9 H 67964-2) RDW-CV (test code = 15.0 % 12.0-15.5 788-0) PLT (test code = See_Comment [Automated 777-3) message] The sy stem which generated this result transmitted reference range : 166 - 358 10*3/ ?L. The reference r miky was not used to interpret this result as normal/abnormal . MPV (test code = 11.4 fL 9.5-12.9 57383-9) NRBC/100 WBC (test See_Comment [Automat ed code = 5295358218) message] The system which generated this result transmitted reference range : 0.0 - 10.0 /100 WBCs. The refer ence range was not u sed to interpret th is result as normal/abnormal . NRBC x10^3 (test code <0.01 See_Comment [Auto mated = 1183786140) message] The s ystem which generated this result transmitted reference range : 10*3/?L. The reference range was not used to interpret this result as normal/abnormal . GRAN MAT (NEUT) % 53.9 % (test code = 770-8) IMM GRAN % (test code 3.10 % = 3606457107) LYMPH % (test code = 30.8 % 736-9) MONO % (test code = 11.3 % 5905-5) EOS % (test code = 0.3 % 713-8) BASO % (test code = 0.6 % 706-2) GRAN MAT x10^3(ANC) 3.48 10*3/uL 1.88-7.09 (test code = 7643388718) IMM GRAN x10^3 (test 0.20 10*3/uL 0.00-0.06 H code = 0151506323) LYMPH x10^3 (test code 1.99 10*3/uL 1.32-3.29 = 731-0) MONO x10^3 (test code 0.73 10*3/uL 0.33-0.92 = 742-7) EOS x10^3 (test code = <0.03 0.03-0.39 L 711-2) BASO x10^3 (test code 0.04 10*3/uL 0.01-0.07 = 704-7) BANDS (test code = Increased A 9520430252) Lab Interpretation Abnormal (test code = 83318-3) [facility] 00:30:48 Test Item Value Reference Range Interpretation Comments MAGNESIUM (test code = 8630230702) 1.4 mg/dL 1.7-2.4 L Lab Interpretation (test code = Abnormal 01549-3) [facility] (NA, K, CL, CO2, GLUCOSE, BUN, CREATININE, CA)2020-12-06 00:00:55 Test Item Value Reference Range Interpretation Comments NA (test code = 135 mmol/L 135-145 1678111047) K (test code = 2.3 mmol/L 3.5-5.0 LL 4093984840) CL (test code = 116 mmol/L 98-108 H 8517112170) CO2 TOTAL (test code = 14 mmol/L 23-31 L 5196717220) AGAP (test code = 2-16 1422546825) BUN (test code = 16 mg/dL 7-23 2653502038) GLUCOSE (test code = 98 mg/dL 70-110 3749813954) CREATININE (test code = 0.85 mg/dL 0.50-1.04 6312193802) CALCIUM (test code = 5.7 mg/dL 8.6-10.6 2552458279) eGFR (test code = mL/min/1.73m2 4311286418) ANTHONY (test code = ANTHONY) Association of [...] tests). Lab Interpretation Abnormal (test code = 81964-5) [facility] CenterTHY[facility] STIMULATING [id number] 20:54:58 Test Item Value Reference Range Interpretation Comments TSH (test code = See_Comment [Automated message] 6699472542) The system [employer] generated this result transmitted ref erence range: 0.45 - 4 .70 mIU/L. The refe rence range was not u sed to interpret this result as normal/abnor mal. Lab Interpretation (test Normal code = 12564-2) [facility] CenterLIP[facility]2021-[facility] 20:23:21 Test Item Value Reference Range Interpretation Comments LIPASE (test code = 3312147247) 130 U/L 0-220 Lab Interpretation (test code = Normal 90878-7) [facility] WITH [id number] 19:46:50 Test Item Value Reference Range Interpretation [...] RDW-SD (test code = 49.2 fL 39.0-49.9 05557-1) RDW-CV (test code = 14.8 % 12.0-15.5 788-0) PLT (test code = See_Comment [Automated 777-3) message] The system which generated this result transmitted reference range : 166 - 358 10*3/?L. The reference range was not used to interpret this result as normal/abnormal . MPV (test code = 11.9 fL 9.5-12.9 90416-9) NRBC/100 WBC (test See_Comment [Automat ed code = 6477445075) message] The system which generated this result transmitted reference range : 0.0 - 10.0 /100 WBCs. The reference range was not used to interpret this result as normal/abnormal . NRBC x10^3 (test code See_Comment [Auto mated = 6932213281) message] The system which generated this result transmitted reference range : 10*3/?L. The reference range was not used to interpret this result as normal/abnormal . GRAN MAT (NEUT) % 45.3 % (test code = 770-8) IMM GRAN % (test code 1.60 % = [id number]) LYMPH % (test code = 41.5 % 736-9) MONO % (test code = 10.4 % 5905-5) EOS % (test code = 0.6 % 713-8) BASO % (test code = 0.6 % 706-2) GRAN MAT x10^3(ANC) 3.18 10*3/uL 1.88-7.09 (test code = [id number]) IMM GRAN x10^3 (test 0.11 10*3/uL 0.00-0.06 H code = [id number]) LYMPH x10^3 (test 2.91 10*3/uL 1.32-3.29 code = 731-0) MONO x10^3 (test code 0.73 10*3/uL 0.33-0.92 = 742-7) EOS x10^3 (test code 0.04 10*3/uL 0.03-0.39 = 711-2) BASO x10^3 (test code 0.04 10*3/uL 0.01-0.07 = 704-7) PORSCHE (test code = Present See_Comment A [Auto mated 6312-4) message] The system which generated this result transmitted reference range : (none). The reference range was not used to interpret this result as normal/abnormal . SCHISTOCYTES (test 1+ A code = 800-3) BANDS (test code = MARKED INCREASED A [id number]) LG GRAN LYMPHS (test Rare Rare code = [id number]) REACT LYMPHS (test Rare code = [id number]) TOXIC CHANGES (test Present A code = 803-7) Lab Interpretation Abnormal (test code = 55697-1) [facility] >30DAYS)2020-12-05 19:44:00 Test Item Value Reference Range Interpretation Comments POCT Glu (age>30days) (test code = 154 mg/dL 70-110 A 3342) Lab Interpretation (test code = Abnormal 11741-4) [facility] CenterTroponin [id number] 19:21:17 Test Item Value Reference Interpretation Comments Range TROPONIN I (test 0.008 ng/mL See_Comment [Automated code = 5813297979) message] The system which generated this result [...] biotin. Lab Interpretation Normal (test code = 48794-1) [facility]. METABOLIC PANEL ([id number])2020-12-05 19:10:58 Test Item Value Reference Range Interpretation Comments NA (test code = 122 mmol/L 135-145 L 8191278142) K (test code = 3.2 mmol/L 3.5-5.0 L 7231400199) CL (test code = 97 mmol/L 98-108 L 7412880326) CO2 TOTAL (test code = 16 mmol/L 23-31 L 0176931199) AGAP (test code = 2-16 0995689439) BUN (test code = 21 mg/dL 7-23 0892424978) GLUCOSE (test code = 154 mg/dL 70-110 H 0069945019) CREATININE (test code = 1.40 mg/dL 0.50-1.04 H 0339628806) TOTAL BILI (test code = 0.6 mg/dL 0.1-1.3 8175047176) CALCIUM (test code = 8.6 mg/dL 8.6-10.6 8494958560) T PROTEIN (test code = 5.7 g/dL 6.3-8.2 L 6167969750) ALBUMIN (test code = 3.0 g/dL 3.5-5.0 L 4035827294) ALK PHOS (test code = 187 U/L 34-122 H 3127221654) ALTv (test code = 43 U/L 5-35 H 1742-6) AST(SGOT) (test code = 66 U/L 13-40 H 2705532709) eGFR (test code = mL/min/1.73m2 8900894199) ANTHONY (test code = ANTHONY) Association of [...] tests). Lab Interpretation Abnormal (test code = 53277-5) [facility]MAGN[facility]IUM2021-10-24 19:10:58 Test Item Value Reference Range Interpretation Comments MAGNESIUM (test code = 6301893968) 1.8 mg/dL 1.7-2.4 Lab Interpretation (test code = Normal 99012-7) [facility]PO[facility] [id number] 18:53:00 Test Item Value Reference Range Interpretation Comments POCT PREG (test code = 1605) negative POCT PREG LOT # (test code = 3575) [id number] POCT PREG TEST DATE (test 2022-02-11 code = 3576) Lab Interpretation (test code = Normal 66935-1) [facility] CenterANTI[facility]SSA(RO)2020-08-10 17:06:47 Test Item Value Reference Range Interpretation Comments ANTI-SSA(RO) (test code = Negative Negative 3069961076) ANTHONY (test code = ANTHONY) Positive - Antibody detected.Negative - No antibody detected. Lab Interpretation (test Normal code = 73030-3) [facility] CenterANTI-SSB(LA)2020-08-10 17:06:47 Test Item Value Reference Range Interpretation Comments Anti-SSB(LA) (test code = Negative Negative 9677395543) ANTHONY (test code = ANTHONY) Positive - Antibody detected.Negative - No antibody detected. Lab Interpretation (test Normal code = 65254-2) [facility] CenterRHEUMATOID [id number] 14:42:16 Test Item Value Reference Range Interpretation Comments RF (test code = <20 See_Comment [Automated message] 0130193199) The system [employer] generated this result transmitted ref erence range: <20 IU/m L. The reference range was not used to int erpret this result as normal/abnormal . Lab Interpretation (test Normal code = 17827-9) [facility]-REACTIVE [id number] 14:41:04 Test Item Value Reference Range Interpretation Comments CRP (test code = 7948487027) 0.3 mg/dL <0.8 Lab Interpretation (test code = Normal 86242-3) [facility] CenterAD OR LEXX ONLY - [id number] 09:50:30 Test Item Value Reference Range Interpretation Comments RPR (Qualitative) (test code = Nonreactive Nonreactive 15915-2) Lab Interpretation (test code = Normal 78444-4) [facility] CenterHIV 1/2 AG-AB WITH [id number] 20:09:42 Test Item Value Reference Range Interpretation Comments HIV Negative Negative Semi-quantitative (test code = 14957-9) ANTHONY (test code = Non-reactive for HIV-1 ANTHONY) antigen and HIV-1/HIV-2 antibodies. ?No laboratory evidence of HIV infection. ?Repeat in 2-4 weeks if acute HIV infection is suspected. [facility] CenterSEDIMENTATION [id number] 19:49:09 Test Item Value Reference Range Interpretation Comments ESR (test code = See_Comment H [Automated message] 6181332997) The system [employer] generated this result transmitted ref erence range: 0 - 20 m m/HR. The reference r miky was not used to interpret this result as normal/abnor mal. Lab Interpretation (test Abnormal code = 41507-3) [facility]. METABOLIC PANEL (91554)2020-08-09 19:29:16 Test Item Value Reference Range Interpretation Comments NA (test code = 133 mmol/L 135-145 L 5183306544) K (test code = 4.4 mmol/L 3.5-5.0 2772046489) CL (test code = 97 mmol/L 98-108 L 0160684587) CO2 TOTAL (test code = 24 mmol/L 23-31 8130116387) AGAP (test code = 2-16 6757523499) BUN (test code = 21 mg/dL 7-23 9009522873) GLUCOSE (test code = 154 mg/dL 70-110 H 0773983867) CREATININE (test code = 0.86 mg/dL 0.50-1.04 4156385861) TOTAL BILI (test code = 0.5 mg/dL 0.1-1.2 8915314521) CALCIUM (test code = 10.0 mg/dL 8.6-10.6 6723580865) T PROTEIN (test code = 8.0 g/dL 6.3-8.2 5425801040) ALBUMIN (test code = 5.1 g/dL 3.5-5.0 H 0081923642) ALK PHOS (test code = 85 U/L 34-122 7341812813) ALTv (test code = 36 U/L 5-35 H 1742-6) AST(SGOT) (test code = 24 U/L 13-40 4787569283) eGFR (test code = mL/min/1.73m2 3359986511) ANTHONY (test code = ANTHONY) Association of [...] tests). Lab Interpretation Abnormal (test code = 98919-6) [facility] CenterURINALYSIS2021-06-28 18:21:29 Test Item Value Reference Range Interpretation Comments APPEARANCE (test code = Clear Clear 7048467870) COLOR (test code = Yellow Yellow 0831197130) PH (test code = 4.8-8.0 2419340564) SP GRAVITY (test code = 1.003-1.030 8171221051) GLU U QUAL (test code = Normal Normal 6610609228) BLOOD (test code = Negative Negative 2334357665) KETONES (test code = Negative Negative 9959294916) PROTEIN (test code = Negative Negative 2887-8) UROBILIN (test code = Normal Normal 8379223084) BILIRUBIN (test code = Negative Negative 3719454864) NITRITE (test code = Negative Negative 6175629940) LEUK MURRAY (test code = Negative Negative 2246633929) RBC/HPF (test code = <1 See_Comment [Autom ated message] 5947787811) The system [employer] generated this result transmitted ref erence range: 0 - 3 HP F. The reference range was not used to int erpret this result as normal/abnormal . WBC/HPF (test code = See_Comment [Autom ated message] 6335339178) The system [employer] generated this result transmitted ref erence range: 0 - 5 HP F. The reference range was not used to int erpret this result as normal/abnormal . BACTERIA (test code = Negative Negative 4573238999) MUCOUS (test code = Slight Negative LPF A 4698421819) SQ EPITH (test code = <1 HPF 2583261492) Lab Interpretation (test Abnormal code = 07578-0) [facility] CenterURINALYSIS2021-06-28 18:21:29 Test Item Value Reference Range Interpretation Comments APPEARANCE (test code = Clear Clear 5861998995) COLOR (test code = Yellow Yellow 7219934123) PH (test code = 4.8-8.0 0986226376) SP GRAVITY (test code = 1.003-1.030 9116002335) GLU U QUAL (test code = Normal Normal 7221464744) BLOOD (test code = Negative Negative 1664501794) KETONES (test code = Negative Negative 4876380362) PROTEIN (test code = Negative Negative 2887-8) UROBILIN (test code = Normal Normal 2728523432) BILIRUBIN (test code = Negative Negative 4481522997) NITRITE (test code = Negative Negative 9820627861) LEUK MURRAY (test code = Negative Negative 5904747854) RBC/HPF (test code = <1 See_Comment [Autom ated message] 2388524303) The system [employer] generated this result transmitted ref erence range: 0 - 3 HP F. The reference range was not used to int erpret this result as normal/abnormal . WBC/HPF (test code = See_Comment [Autom ated message] 9316986790) The system [employer] generated this result transmitted ref erence range: 0 - 5 HP F. The reference range was not used to int erpret this result as normal/abnormal . BACTERIA (test code = Negative Negative 3522474042) MUCOUS (test code = Slight Negative LPF A 0499425896) SQ EPITH (test code = <1 HPF 2919267729) Lab Interpretation (test Abnormal code = 53628-9) [facility] WITH [id number] 17:36:57 Test Item Value Reference Range Interpretation [...] RDW-SD (test code = 47.8 fL 39.0-49.9 25905-6) RDW-CV (test code = 13.4 % 12.0-15.5 788-0) PLT (test code = See_Comment [Automated 777-3) message] The sy stem which generated this result transmitted reference range : 166 - 358 10*3/ ?L. The reference r miky was not used to interpret this result as normal/abnormal . MPV (test code = 9.4 fL 9.5-12.9 L 42530-1) NRBC/100 WBC (test See_Comment [Automat ed code = 1554830016) message] The system which generated this result transmitted reference range : 0.0 - 10.0 /100 WBCs. The refer ence range was not u sed to interpret th is result as normal/abnormal . NRBC x10^3 (test code <0.01 See_Comment [Auto mated = 3904857919) message] The s ystem which generated this result transmitted reference range : 10*3/?L. The reference range was not used to interpret this result as normal/abnormal . GRAN MAT (NEUT) % 80.8 % (test code = 770-8) IMM GRAN % (test code 1.90 % = 9334142925) LYMPH % (test code = 15.0 % 736-9) MONO % (test code = 2.1 % 5905-5) EOS % (test code = 0.1 % 713-8) BASO % (test code = 0.1 % 706-2) GRAN MAT x10^3(ANC) 6.79 10*3/uL 1.88-7.09 (test code = 8369975039) IMM GRAN x10^3 (test 0.16 10*3/uL 0.00-0.06 H code = 1381012307) LYMPH x10^3 (test code 1.26 10*3/uL 1.32-3.29 L = 731-0) MONO x10^3 (test code 0.18 10*3/uL 0.33-0.92 L = 742-7) EOS x10^3 (test code = <0.03 0.03-0.39 L 711-2) BASO x10^3 (test code <0.03 0.01-0.07 = 704-7) Lab Interpretation Abnormal (test code = 75425-4) [facility] WITH [id number] 17:36:57 Test Item Value Reference Range Interpretation [...] RDW-SD (test code = 47.8 fL 39.0-49.9 20266-3) RDW-CV (test code = 13.4 % 12.0-15.5 788-0) PLT (test code = See_Comment [Automated 777-3) message] The sy stem which generated this result transmitted reference range : 166 - 358 10*3/ ?L. The reference r miky was not used to interpret this result as normal/abnormal . MPV (test code = 9.4 fL 9.5-12.9 L 31000-3) NRBC/100 WBC (test See_Comment [Automat ed code = 3900206528) message] The system which generated this result transmitted reference range : 0.0 - 10.0 /100 WBCs. The refer ence range was not u sed to interpret th is result as normal/abnormal . NRBC x10^3 (test code <0.01 See_Comment [Auto mated = 9825756965) message] The s ystem which generated this result transmitted reference range : 10*3/?L. The reference range was not used to interpret this result as normal/abnormal . GRAN MAT (NEUT) % 80.8 % (test code = 770-8) IMM GRAN % (test code 1.90 % = 9135790789) LYMPH % (test code = 15.0 % 736-9) MONO % (test code = 2.1 % 5905-5) EOS % (test code = 0.1 % 713-8) BASO % (test code = 0.1 % 706-2) GRAN MAT x10^3(ANC) 6.79 10*3/uL 1.88-7.09 (test code = 7384044955) IMM GRAN x10^3 (test 0.16 10*3/uL 0.00-0.06 H code = 9848621899) LYMPH x10^3 (test code 1.26 10*3/uL 1.32-3.29 L = 731-0) MONO x10^3 (test code 0.18 10*3/uL 0.33-0.92 L = 742-7) EOS x10^3 (test code = <0.03 0.03-0.39 L 711-2) BASO x10^3 (test code <0.03 0.01-0.07 = 704-7) Lab Interpretation Abnormal (test code = 99555-5) [facility] CenterMENINGITIS/ENCEPHALITIS PANEL BY [id number] 22:27:23 Test Item Value Reference Range Interpretation Comments Escherichia coli K1 Negative Negative, (test code = 30790-2) Indeterminate, See Comment Haemophilus influenzae Negative Negative, (test code = 07488-4) Indeterminate, See Comment Listeria monocytogenes Negative Negative, (test code = 01098-8) Indeterminate, See Comment Neisseria meningitidis Negative Negative, (encapsulated) (test Indeterminate, code = 17584-1) See Comment Streptococcus agalactiae Negative Negative, (test code = 57522-8) Indeterminate, See Comment Streptococcus pneumoniae Negative Negative, (test code = 13474-5) Indeterminate, See Comment Cytomegalovirus (test Negative Negative, code = 04731-6) Indeterminate, See Comment Enterovirus (test code = Negative Negative, 26309-8) Indeterminate, See Comment Herpes simplex virus 1 Negative Negative, (test code = 72923-4) Indeterminate, See Comment Herpes simplex virus 2 Negative Negative, (test code = 63171-5) Indeterminate, See Comment Human herpesvirus 6 Negative Negative, (test code = 88623-1) Indeterminate, See Comment Human parechovirus (test Negative Negative, code = 65475-4) Indeterminate, See Comment Varicella zoster virus Negative Negative, (test code = 50372-3) Indeterminate, See Comment Cryptococcus Negative Negative, neoformans/gattii (test Indeterminate, code = 33399-5) See Comment ANTHONY (test code = ANTHONY) Negative:A negative result does not rule-out infection. ?This assay does not test for all potential infectious agents. Positive:A positive test result does not necessarily indicate the presence of viable organism. ? Lab Interpretation (test Normal code = 90685-9) [facility] CenterBODY FLUID DIRECT [id number] 21:52:07 Test Item Value Reference Range Interpretation Comments BF COLOR (test code = Clear 1066145675) BF WBC Count (test See_Comment [Automat ed message] The code = 7591986263) system wh ich generated this result transmit karly reference range : 0 - 5 /?L. The reference r miky was not used to interpr et this result as cassandra l/abnormal. BF RBC Count (test See_Comment [Automat ed message] The code = 0101990430) system [facility] generated this result transmit karly reference range : /?L. The reference range was not used to interpr et this result as cassandra l/abnormal. [facility] CenterBODY FLUID MANUAL [id number] 21:52:07BF SEGSComment: Less than 100 cells counted due to low WBC; Differential is not reported in percent.10 cells counted: 1 Neutrophils, 9 Lymphocytes, 0 Macrophages [facility]#CELS CNTDUTMBLABORATORY SERVICESUnBoone County Community HospitalROSPINAL FLUID [id number] 20:58:36 Test Item Value Reference Range Interpretation Comments T. PRO CSF (test code = 68.0 mg/dL 15.0-45.0 H 8719222411) UNSPUN BODY FLUID COLOR Light Red (test code = 9870166710) UNSPUN BODY FLUID CLARITY Cloudy (test code = 0208360545) SPUN BODY FLUID COLOR Meno (test code = 4643014473) SPUN BODY FLUID CLARITY Clear (test code = 4498089917) Sediment (test code = The se diment 5268125014) volume is <0.1 mLs of the total fl uid volume of 5cc a nd its color is re d. Lab Interpretation (test Abnormal code = 69543-0) [facility] [id number] 20:58:25 Test Item Value Reference Range Interpretation Comments GLU CSF (test code = 74 mg/dL 50-80 9412849218) UNSPUN BODY FLUID Light Red COLOR (test code = 5354393113) UNSPUN BODY FLUID Cloudy CLARITY (test code = 9426612156) SPUN BODY FLUID COLOR Meno (test code = 5397418726) SPUN BODY FLUID Clear CLARITY (test code = 8600178717) Sediment (test code = The se diment volume is 2450789554) <0.1 mLs of the total fluid volume of 5cc and its color i s red. [facility] CenterXR CHEST 1 [id number] 15:19:43 No acute cardiopulmonary process. Preliminary Report [...] Radiant Results Inft User - 07/14/2020 10:20 AMCDT PROCEDURE: XR CHEST 1 VWCLINICAL INDICATION: leukocytosis TECHNIQUE: Frontal chest radiograph was obtained.COMPARISON: 06/26/2020FINDINGS:The lungs are clear. No pleural effusion or pneumothorax is seen. The heart is normal in size.No acute bony abnormality is noted.IMPRESSIONNo acute cardiopulmonary process.Preliminary Report Dictated byResident: Francisco Laughlin MD., have reviewed this study and agree with theabove report. [facility]PO[facility] GLUCOSE (AUTOMATED)2020-07-14 15:07:20 Test Item Value Reference Range Interpretation Comments POCT GLU (test code = 0582266488) 98 mg/dL 70-110 Lab Interpretation (test code = Normal 29540-2) [facility] CenterC-REACTIVE [id number] 14:51:17 Test Item Value Reference Range Interpretation Comments CRP (test code = 9543840462) 0.2 mg/dL <0.8 Lab Interpretation (test code = Normal 76841-9) [facility] CenterMAGNESIUM2021-06-02 14:40:38 Test Item Value Reference Range Interpretation Comments MAGNESIUM (test code = 0200867365) 2.1 mg/dL 1.7-2.4 Lab Interpretation (test code = Normal 28221-0) [facility] CenterPhosphorus [id number] 13:50:50 Test Item Value Reference Range Interpretation Comments PHOSPHORUS (test code = 6242562739) 3.1 mg/dL 2.5-5.0 Lab Interpretation (test code = Normal 31001-2) [facility] CenterBasi Metabolic Panel (NA, K, CL, CO2, GLUCOSE, BUN, CREATININE, CA)2020-07-14 12:41:09 Test Item Value Reference Range Interpretation Comments NA (test code = 136 mmol/L 135-145 3555681911) K (test code = 4.3 mmol/L 3.5-5.0 8888189085) CL (test code = 108 mmol/L 98-108 2996754174) CO2 TOTAL (test code = 17 mmol/L 23-31 L 3566882914) AGAP (test code = 2-16 9381567144) BUN (test code = 22 mg/dL 7-23 6826488112) GLUCOSE (test code = 98 mg/dL 70-110 2893172284) CREATININE (test code = 0.70 mg/dL 0.50-1.04 1065248197) CALCIUM (test code = 9.4 mg/dL 8.6-10.6 3756095940) eGFR (test code = mL/min/1.73m2 1827332622) ANTHONY (test code = ANTHONY) Association of [...] tests). Lab Interpretation Abnormal (test code = 62036-0) [facility] CenterHepatic Function Panel (ALB, T.PRO, BILI T, BU/BC, ALT, AST, ALK PHOS)2020-07-14 12:41:09 Test Item Value Reference Range Interpretation Comments TOTAL BILI (test code = 3842294215) 0.3 mg/dL 0.1-1.1 BILI UNCON (test code = 7245527603) 0.1 mg/dL 0.1-1.1 BILI CONJ (test code = 3883170045) 0.0 mg/dL 0.0-0.3 T PROTEIN (test code = 1002903475) 7.6 g/dL 6.3-8.2 ALBUMIN (test code = 7669399701) 4.6 g/dL 3.5-5.0 ALK PHOS (test code = 2709635678) 120 U/L 34-122 ALTv (test code = 1742-6) 42 U/L 5-35 H AST(SGOT) (test code = 1869057220) 24 U/L 13-40 Lab Interpretation (test code = Abnormal 61097-3) [facility] CenterUrinalysis2021-06-02 10:22:07 Test Item Value Reference Range Interpretation Comments APPEARANCE (test code = Clear Clear 2605973795) COLOR (test code = Yellow Yellow 1503677693) PH (test code = 4.8-8.0 0590458536) SP GRAVITY (test code = 1.003-1.030 3439855043) GLU U QUAL (test code = Normal Normal 8570357592) BLOOD (test code = Negative Negative 3621998629) KETONES (test code = Negative Negative 2694008369) PROTEIN (test code = Negative Negative 2887-8) UROBILIN (test code = Normal Normal 8149048993) BILIRUBIN (test code = Negative Negative 6727222133) NITRITE (test code = Negative Negative 9302105666) LEUK MURRAY (test code = Negative Negative 2926494118) RBC/HPF (test code = See_Comment [Autom ated message] 1968340351) The system [employer] generated this result transmitted ref erence range: 0 - 3 HP F. The reference range was not used to int erpret this result as normal/abnormal . WBC/HPF (test code = See_Comment [Autom ated message] 4249160464) The system [employer] generated this result transmitted ref erence range: 0 - 5 HP F. The reference range was not used to int erpret this result as normal/abnormal . BACTERIA (test code = Negative Negative 8707169469) MUCOUS (test code = Slight Negative LPF A 4853060881) SQ EPITH (test code = See_Comment [Auto mated message] 1090801230) The system [employer] generated this result transmitted ref erence range: <=2 HPF. The reference range was not used to int erpret this result as normal/abnormal . Lab Interpretation (test Abnormal code = 62229-3) [facility] CenterCOVID-19 (ID NOW RAPID TESTING)2020-07-14 09:45:51 Test Item Value Reference Range Interpretation Comments SARS-CoV-2 Rapid ID NOW Not Detected Not Detected (test code = 56535-0) ANTHONY (test code = ANTHONY) ID NOW COVID-19 Assay is an isothermal nucleic acid amplification test intended for the qualitative detection of nucleic acid from SARS-CoV-2 viral RNA in nasopharyngeal (HEARING AID SPECIALIST) specimens. It is used under Emergency Use [...] indicated. Lab Interpretation Normal (test code = 58750-1) [facility] with [id number] 02:07:47 Test Item Value Reference Range Interpretation Comments WBC (test code = See_Comment H [Automated 90-2) message] The system which generated this result [...] RDW-SD (test code = 47.8 fL 39.0-49.9 24111-0) RDW-CV (test code = 13.6 % 12.0-15.5 788-0) PLT (test code = See_Comment H [Automated 777-3) message] The system which generated this result transmit karly reference range : 166 - 358 10*3/ ?L. The reference range was not u sed to interpret th is result as normal/abnormal . MPV (test code = 10.6 fL 9.5-12.9 10382-8) NRBC/100 WBC (test See_Comment [Automat ed code = 0939671310) message] The system which generated this result transmit karly reference range : 0.0 - 10.0 /100 WBCs. The reference range was not used to interpret this result as normal/abnormal . NRBC x10^3 (test code See_Comment [Auto mated = 3014422209) message] The system which generated this result transmit karly reference range : 10*3/?L. The reference range was not used to interpret this result as normal/abnormal . GRAN MAT (NEUT) % 70.5 % (test code = 770-8) IMM GRAN % (test code 1.60 % = 2641617311) LYMPH % (test code = 20.8 % 736-9) MONO % (test code = 6.8 % 5905-5) EOS % (test code = 0.1 % 713-8) BASO % (test code = 0.2 % 706-2) GRAN MAT x10^3(ANC) 12.19 10*3/uL 1.88-7.09 H (test code = 7032796231) IMM GRAN x10^3 (test 0.27 10*3/uL 0.00-0.06 H code = 7571329954) LYMPH x10^3 (test code 3.58 10*3/uL 1.32-3.29 H = 731-0) MONO x10^3 (test code 1.17 10*3/uL 0.33-0.92 H = 742-7) EOS x10^3 (test code = <0.03 0.03-0.39 L 711-2) BASO x10^3 (test code 0.03 10*3/uL 0.01-0.07 = 704-7) Lab Interpretation Abnormal (test code = 31667-5) [facility] CenterSEDIMENTATION [id number] 02:02:09 Test Item Value Reference Range Interpretation Comments ESR (test code = See_Comment H [Automated message] 2674374341) The system [employer] h generated this result transmitted ref erence range: 0 - 20 m m/HR. The reference r miky was not used to interpret this result as normal/abnor mal. Lab Interpretation (test Abnormal code = 44293-1) [facility] WITH [id number] 03:30:13 Test Item Value Reference Range Interpretation Comments WBC (test code = See_Comment [Automated 5190-2) message] The sy stem which generated this result transmitted reference range : 4.30 - 11.10 10*3/?L. The reference range was not used to interpret this result as normal/abnormal . RBC (test code = See_Comment L [Automated 399-8) message] The sy stem which generated this [...] RDW-SD (test code = 48.1 fL 39.0-49.9 35278-9) RDW-CV (test code = 13.3 % 12.0-15.5 788-0) PLT (test code = See_Comment [Automated 777-3) message] The sy stem which generated this result transmitted reference range : 166 - 358 10*3/ ?L. The reference r miky was not used to interpret this result as normal/abnormal . MPV (test code = 10.4 fL 9.5-12.9 12783-2) NRBC/100 WBC (test See_Comment [Automat ed code = 0005574600) message] The system which generated this result transmitted reference range : 0.0 - 10.0 /100 WBCs. The refer ence range was not u sed to interpret th is result as normal/abnormal . NRBC x10^3 (test code <0.01 See_Comment [Auto mated = 5407387987) message] The s ystem which generated this result transmitted reference range : 10*3/?L. The reference range was not used to interpret this result as normal/abnormal . GRAN MAT (NEUT) % 44.6 % (test code = 770-8) IMM GRAN % (test code 0.80 % = 6346854681) LYMPH % (test code = 43.3 % 736-9) MONO % (test code = 10.0 % 5905-5) EOS % (test code = 0.9 % 713-8) BASO % (test code = 0.4 % 706-2) GRAN MAT x10^3(ANC) 3.52 10*3/uL 1.88-7.09 (test code = 7524121761) IMM GRAN x10^3 (test 0.06 10*3/uL 0.00-0.06 code = 3844109014) LYMPH x10^3 (test code 3.42 10*3/uL 1.32-3.29 H = 731-0) MONO x10^3 (test code 0.79 10*3/uL 0.33-0.92 = 742-7) EOS x10^3 (test code = 0.07 10*3/uL 0.03-0.39 711-2) BASO x10^3 (test code 0.03 10*3/uL 0.01-0.07 = 704-7) Lab Interpretation Abnormal (test code = 20451-3) [facility]38[facility]39 Test Item Value Reference Range Interpretation Comments LIPASE (test code = 4037426049) 39 U/L 0-220 Lab Interpretation (test code = Normal 31786-2) [facility] CenterCOMP. METABOLIC PANEL (66901)2020-07-04 19:20:59 Test Item Value Reference Range Interpretation Comments NA (test code = 138 mmol/L 135-145 2791816205) K (test code = 3.9 mmol/L 3.5-5.0 9391119419) CL (test code = 101 mmol/L 98-108 5687665688) CO2 TOTAL (test code = 27 mmol/L 23-31 5419827216) AGAP (test code = 2-16 2752472997) BUN (test code = 20 mg/dL 7-23 0379935390) GLUCOSE (test code = 105 mg/dL 70-110 8074455643) CREATININE (test code = 0.78 mg/dL 0.50-1.04 2010385701) TOTAL BILI (test code = 0.4 mg/dL 0.1-1.1 4850546817) CALCIUM (test code = 9.8 mg/dL 8.6-10.6 6762672530) T PROTEIN (test code = 9.1 g/dL 6.3-8.2 H 7599665724) ALBUMIN (test code = 4.9 g/dL 3.5-5.0 9037519182) ALK PHOS (test code = 171 U/L 34-122 H 5648365371) ALTv (test code = 136 U/L 5-35 H 1742-6) AST(SGOT) (test code = 82 U/L 13-40 H 2338456703) eGFR (test code = mL/min/1.73m2 2719135809) ANTHONY (test code = ANTHONY) Association of [...] tests). Lab Interpretation Abnormal (test code = 92988-3) [facility] CenterUrinalysis2021-05-23 19:14:12 Test Item Value Reference Range Interpretation Comments APPEARANCE (test code = Clear Clear 3836941812) COLOR (test code = Yellow Yellow 7726278283) PH (test code = 4.8-8.0 5820497554) SP GRAVITY (test code = 1.003-1.030 0801948621) GLU U QUAL (test code = Normal Normal 7610756357) BLOOD (test code = Negative Negative 1423920688) KETONES (test code = Negative Negative 8833400291) PROTEIN (test code = Negative Negative 2887-8) UROBILIN (test code = Normal Normal 5283730892) BILIRUBIN (test code = Negative Negative 6791761894) NITRITE (test code = Negative Negative 6065382339) LEUK MURRAY (test code = 75/uL Negative A 2739830715) RBC/HPF (test code = See_Comment [Autom ated message] 1436688082) The system [employer] generated this result transmitted ref erence range: 0 - 3 HP F. The reference range was not used to int erpret this result as normal/abnormal . WBC/HPF (test code = See_Comment H [Autom ated message] 7646250774) The system [employer] generated this result transmitted ref erence range: 0 - 5 HP F. The reference range was not used to int erpret this result as normal/abnormal . BACTERIA (test code = Negative Negative 4288577690) MUCOUS (test code = Slight Negative LPF A 0779998023) SQ EPITH (test code = HPF 2224256726) Lab Interpretation (test Abnormal code = 58082-4) [facility] WITH [id number] 19:10:40 Test Item Value Reference Range Interpretation [...] RDW-SD (test code = 47.2 fL 39.0-49.9 47412-5) RDW-CV (test code = 13.2 % 12.0-15.5 788-0) PLT (test code = See_Comment [Automated 777-3) message] The sy stem which generated this result transmitted reference range : 166 - 358 10*3/ ?L. The reference r miky was not used to interpret this result as normal/abnormal . MPV (test code = 10.5 fL 9.5-12.9 10284-1) NRBC/100 WBC (test See_Comment [Automat ed code = 2996236712) message] The system which generated this result transmitted reference range : 0.0 - 10.0 /100 WBCs. The refer ence range was not u sed to interpret th is result as normal/abnormal . NRBC x10^3 (test code <0.01 See_Comment [Auto mated = 2662630360) message] The s ystem which generated this result transmitted reference range : 10*3/?L. The reference range was not used to interpret this result as normal/abnormal . GRAN MAT (NEUT) % 54.8 % (test code = 770-8) IMM GRAN % (test code 0.80 % = 0142960535) LYMPH % (test code = 32.1 % 736-9) MONO % (test code = 10.3 % 5905-5) EOS % (test code = 1.7 % 713-8) BASO % (test code = 0.3 % 706-2) GRAN MAT x10^3(ANC) 3.46 10*3/uL 1.88-7.09 (test code = 0030383091) IMM GRAN x10^3 (test 0.05 10*3/uL 0.00-0.06 code = 6915463626) LYMPH x10^3 (test code 2.03 10*3/uL 1.32-3.29 = 731-0) MONO x10^3 (test code 0.65 10*3/uL 0.33-0.92 = 742-7) EOS x10^3 (test code = 0.11 10*3/uL 0.03-0.39 711-2) BASO x10^3 (test code <0.03 0.01-0.07 = 704-7) Lab Interpretation Abnormal (test code = 26098-9) [facility] CenterZOLTAN [id number] 17:09:15 Test Item Value Reference Range Interpretation Comments TROPONIN I (test 0.000 ng/mL See_Comment [Automated code = 4813410950) message] The system which generated this result transmitted reference range : <=0.034. The reference range was not used to interpret this result as normal/abnormal . ANTHONY (test code = Equal or Less than ANHTONY) 0.034 ng/ml---Normal ?Note: Cardiac troponin begins to [...] ? Lab Interpretation Normal (test code = 55348-9) [facility] BRAIN WO [id number] 15:28:24 Within the limitation of motion degrading [...] acute/subacute infarct. Noabnormal parenchymal signal abnormality seen. No abnormal gradientblooming. The T2 flow voids for the major intracranial ve ssels are unremarkable. Noabnormal fluid signal is present in the mastoid air cells or paranasalsinuses. [facility], Radiant Results Inft User - 06/27/2020 10:29 AM CDTMR BRAIN WO CONTRASTCOMPARISON: CT headdated 06/26/2020.HISTORY: Headache, intracranial hemorrhage suspected Neuro deficit, [...] acute/subacute infarct. Noabnormal parenchymal signal abnormality seen. No abnormal gradientblooming.The T2 flow voids for the major intracranial vessels are unremarkable. Noabnormal fluid signal is present in the mastoid air cells or paranasalsinuses.IMPRESSIONWithin the limitation of motion degrading image quality, no acuteintracranial abnormality, specifically no abnormal signal seen to suggestPRES.Preliminary Report Dictated by Resident: Aury Jimenez MD., have reviewed this study and agree with theabove report.[facility] CenterCT [facility] [id number] 01:50:14 No large vessel occlusion or flow-limiting stenosis is identified in thehead and neck arteries. Follow-up with dedicated thyroid ultrasound on a non- emergent, outpatientbasis is recommended for further characterization. Preliminary Report Dictated by Resident: Aury Hallman MD., have reviewed this study and agree with theabove report.EXAM: CT ANGIOGRAM HEAD, CT ANGIOGRAM NECK HISTORY: ?Headache, intracranial hemorrhage suspected TECHNIQUE: Axial CT imaging of the [place] and from the skull baseto the superior mediastinum was obtained during arterial phase after theintravenous administration of IV contrast. Coronal, sagittal, and MIPS wereconstructed. COMPARISON: Sameday CT head FINDINGS: CTA HEAD: The PICA origin is visualized bilaterally. The basilar artery is normal incaliber. Common origin of the left superior cerebellar and LANDSCAPE SUPERVISOR is noted.The superior cerebellararteries are patent. The posterior cerebralarteries are patent. A right LANDSCAPE SUPERVISOR is identified. A sm all leftposterior communicating artery is identified. The distal cervical, petrous, cavernous and supraclinoid internal carotidarteries are patent. The anterior and middle cerebral arteries are patent.A fenestratedanterior communicating artery configuration is noted. There is contrastopacification of the dural venous sinuses. CTA NECK: Aortic arch and arch vessel origins: Four vessel branching pattern withleft vertebral artery identified arising off the aortic arch. Innominate and subclavian arteries: The innominate and subclavian arteriesare otherwise widely patent. Common carotids: The cervical,common carotid, carotid bulbs, internal, andintracranial carotid artery segments are patent bilaterally withoutflow-limiting stenosis. Vertebral arteries: The vertebral arteries are codominant. The vertebralarteries are patent without flow-limiting stenosis from their originthrough their vertebral andintradural segments. Cervical soft tissues: Heterogeneous thyroid gland with with asymmetricenlargement of the left thyroid lobe. A 1.0 cm right thyroid lobe and 1.8cm left thyroid lobe hypoattenuatingnodules are identified. Kyphotic reversal of the cervical spine. [facility], [facility] Results Inft User - 06/26/2020 8:51 PM CDTEXAM: CT ANGIOGRAM HEAD, CT ANGIOGRAM NECKHISTORY: Headache, intracranial hemorrhage suspected TECHNIQUE: Axial CT imaging of the [place] and from the skull baseto the superior mediastinum was obtained during arterial phase after theintravenous administration of IV contrast. Coronal, sagittal, and MIPS wereconstructed.COMPARISON: Same day CT headFINDINGS:CTA HEAD:The PICA origin is visualized bilaterally. The basilar artery is normal incaliber. Common origin of the left superior cerebellar and LANDSCAPE SUPERVISOR is noted.The superior cerebellar arteries are patent. The posterior cerebralarteries are patent. A right LANDSCAPE SUPERVISOR is identified. A small leftposterior communicating artery is identified.The distal cervical, petrous, cavernous and supraclinoid internal carotidarteries are patent. The anterior and middle cerebral arteries are patent. A fenestratedanterior communicating artery configuration is noted. There is contrastopacification of the dural venous sinuses. CTA NECK:Aorticarch and arch vessel origins: Four vessel branching [...] left thyroid lobe hypoattenuating nodules are identified.Kyphotic reversal of the cervical spine. IMPRESSIONNo large vessel occlusion or flow- limiting stenosis is identified in thehead and neck arteries.Follow-up with dedicated thyroid ultrasound on a non-emergent, outpatientbasis is recommended for further characterization. Preliminary Report Dictated by Resident: Aury Sandy MD., have reviewed this study and agree with theabove report.[facility] [id number] 01:50:14 No large vessel occlusion or flow-limiting stenosis is identified in thehead and neck arteries. Follow-up with dedicated thyroid ultrasound on a non-emergent, outpatientbasis is recommended for further characterization. Preliminary Report Dictated by Resident: Aury Hallman MD., have reviewed this study and agree with theabove report.EXAM: CT ANGIOGRAM HEAD, CT ANGIOGRAM NECK HISTORY: ?Headache, intracranial hemorrhage suspected TECHNIQUE: Axial CT imaging of the [place] and from the skull baseto the superior mediastinum was obtained during arterial phase after theintravenous administration of IV contrast. Coronal, sagittal, and MIPS wereconstructed. COMPARISON: Sameday CT head FINDINGS: CTA HEAD: The PICA origin is visualized bilaterally. The basilar artery is normal incaliber. Common origin of the left superior cerebellar and LANDSCAPE SUPERVISOR is noted.The superior cerebellararteries are patent. The posterior cerebralarteries are patent. A right LANDSCAPE SUPERVISOR is identified. A sm all leftposterior communicating artery is identified. The distal cervical, petrous, cavernous and supraclinoid internal carotidarteries are patent. The anterior and middle cerebral arteries are patent.A fenestratedanterior communicating artery configuration is noted. There is contrastopacification of the dural venous sinuses. CTA NECK: Aortic arch and arch vessel origins: Four vessel branching pattern withleft vertebral artery identified arising off the aortic arch. Innominate and subclavian arteries: The innominate and subclavian arteriesare otherwise widely patent. Common carotids: The cervical,common carotid, carotid bulbs, internal, andintracranial carotid artery segments are patent bilaterally withoutflow-limiting stenosis. Vertebral arteries: The vertebral arteries are codominant. The vertebralarteries are patent without flow-limiting stenosis from their originthrough their vertebral andintradural segments. Cervical soft tissues: Heterogeneous thyroid gland with with asymmetricenlargement of the left thyroid lobe. A 1.0 cm right thyroid lobe and 1.8cm left thyroid lobe hypoattenuatingnodules are identified. Kyphotic reversal of the cervical spine. [facility], [facility] Results Inft User - 06/26/2020 8:51 PM CDTEXAM: CT ANGIOGRAM HEAD, CT ANGIOGRAM NECKHISTORY: Headache, intracranial hemorrhage suspected TECHNIQUE: Axial CT imaging of the [place] and from the skull baseto the superior mediastinum was obtained during arterial phase after theintravenous administration of IV contrast. Coronal, sagittal, and MIPS wereconstructed.COMPARISON: Same day CT headFINDINGS:CTA HEAD:The PICA origin is visualized bilaterally. The basilar artery is normal incaliber. Common origin of the left superior cerebellar and LANDSCAPE SUPERVISOR is noted.The superior cerebellar arteries are patent. The posterior cerebralarteries are patent. A right LANDSCAPE SUPERVISOR is identified. A small leftposterior communicating artery is identified.The distal cervical, petrous, cavernous and supraclinoid internal carotidarteries are patent. The anterior and middle cerebral arteries are patent. A fenestratedanterior communicating artery configuration is noted. There is contrastopacification of the dural venous sinuses. CTA NECK:Aorticarch and arch vessel origins: Four vessel branching [...] left thyroid lobe hypoattenuating nodules are identified.Kyphotic reversal of the cervical spine. IMPRESSIONNo large vessel occlusion or flow- limiting stenosis is identified in thehead and neck arteries.Follow-up with dedicated thyroid ultrasound on a non-emergent, outpatientbasis is recommended for further characterization. Preliminary Report Dictated by Resident: Aury Sandy MD., have reviewed this study and agree with theabove report.[facility] CenterSEDIMENTATION [id number] 01:00:08 Test Item Value Reference Range Interpretation Comments ESR (test code = See_Comment H [Automated message] 9953968947) The system [employer] generated this result transmitted ref erence range: 0 - 20 m m/HR. The reference r miky was not used to interpret this result as normal/abnor mal. Lab Interpretation (test Abnormal code = 28530-7) [facility]CT [facility] WO [id number] 00:39:04 No acute intracranial hemorrhage or mass effect. Preliminary Report Dictated by Resident: Aury Linton MD., have reviewed this study and agree with theabove report.CT HEAD WO CONTRAST HISTORY: Headache, intracranial hemorrhage suspected COMPARISON: None. TECHNIQUE: Nonenhanced CT scan of the head was done in the axial dimension.Regenerated formats in the coronal and sagittaldimensions were obtained. FINDINGS: The ventricles and cerebral sulci are normal in caliber and configuration.No midline shift, hydrocephalus or pathological extra-axial fluidcollection is present. Thebasal cisterns are unremarkable. There is no acute intraparenchymal hemorrhage or significant mass effect.No parenchymal attenuation abnormality seen. The stone- white matterdifferentiation is preserved.The mastoid air cells and visualized paranasal sinuses are clear. Thecalvarium and central skull base are unremarkable. [facility], [facility] Results Inft User - 06/26/2020 7:40 PM CDTCT HEAD WO CONTRASTHISTORY: Headache, intracranial hemorrhage suspected COMPARISON: None.TECHNIQUE: Nonenhanced CT scan of thehead was done in the axial dimension.Regenerated formats [...] this study and agree with theabove report.[facility] CenterCOVID-19 (ID NOW RAPID TESTING)2020-06-26 22:58:15 Test Item Value Reference Range Interpretation Comments SARS-CoV-2 Rapid ID NOW Not Detected Not Detected (test code = 87734-5) ANTHONY (test code = ANTHONY) ID NOW COVID-19 Assay is an isothermal nucleic acid amplification test intended for the qualitative detection of nucleic acid from SARS-CoV-2 viral RNA in nasopharyngeal (HEARING AID SPECIALIST) specimens. It is used under Emergency Use [...] indicated. Lab Interpretation Normal (test code = 90386-1) [facility] 1 [id number] 22:12:42 No acute cardiopulmonary abnormality. Preliminary Report Dictated by Resident: Rex Christopher MD., have reviewed this study and agree with the abovereport.EXAM: XR CHEST 1 VW CLINICAL INDICATION: CP COMPARISON: 12/08/2019 FINDINGS: The lungs are well-expanded and clear without focal consolidation, pleuraleffusion, or pneumothorax. The cardiac silhouette is normal in size. No acute osseous abnormality. [facility], [facility]iant Results Inft User - 06/26/2020 5:13 PM CDTEXAM: XR CHEST 1 VWCLINICALINDICATION: CP COMPARISON: 12/08/2019FINDINGS:The lungs are well-expanded and clear without focal consolidation, pleuraleffusion, or pneumothorax. The cardiac silhouette is normal in size. No acute osseous abnormality. IMPRESSIONNo acute cardiopulmonary abnormality. Preliminary Report Dictated by Resident: Tom Dewey, Rex Carroll MD., have reviewed this study and agree with the abovereport.[facility] CenterUrinalysis 2020-06-26 21:49:50 Test Item Value Reference Range Interpretation Comments APPEARANCE (test code = Clear Clear 9771774335) COLOR (test code = Yellow Yellow 2335886790) PH (test code = 4.8-8.0 3046178178) SP GRAVITY (test code = 1.003-1.030 1483701042) GLU U QUAL (test code = Normal Normal 0144210318) BLOOD (test code = Negative Negative 4028199808) KETONES (test code = Negative Negative 1716212789) PROTEIN (test code = Negative Negative 2887-8) UROBILIN (test code = Normal Normal 2652902180) BILIRUBIN (test code = Negative Negative 7913377597) NITRITE (test code = Negative Negative 4471168985) LEUK MURRAY (test code = Negative Negative 7887508145) RBC/HPF (test code = See_Comment [Autom ated message] 4778519099) The system [employer] generated this result transmitted ref erence range: 0 - 3 HP F. The reference range was not used to int erpret this result as normal/abnormal . WBC/HPF (test code = See_Comment [Autom ated message] 1452000469) The system [employer] generated this result transmitted ref erence range: 0 - 5 HP F. The reference range was not used to int erpret this result as normal/abnormal . BACTERIA (test code = Negative Negative 6267076561) MUCOUS (test code = Slight Negative LPF A 4047214637) SQ EPITH (test code = HPF 1256397125) Lab Interpretation (test Abnormal code = 20328-6) [facility] CenterTroponin [id number] 21:18:44 Test Item Value Reference Range Interpretation Comments TROPONIN I (test <0.012 See_Comment [Automated code = 0481546713) message] The system which generated this result [...] ? Lab Interpretation Normal (test code = 52140-6) [facility] (NA, K, CL, CO2, GLUCOSE, BUN, CREATININE, CA)2020-06-26 21:07:49 Test Item Value Reference Range Interpretation Comments NA (test code = 141 mmol/L 135-145 1606409766) K (test code = 4.1 mmol/L 3.5-5.0 2363164956) CL (test code = 109 mmol/L 98-108 H 6523019661) CO2 TOTAL (test code = 23 mmol/L 23-31 2590496592) AGAP (test code = 2-16 4910915900) BUN (test code = 19 mg/dL 7-23 2125873240) GLUCOSE (test code = 112 mg/dL 70-110 H 9497000253) CREATININE (test code = 0.87 mg/dL 0.50-1.04 0487689693) CALCIUM (test code = 9.6 mg/dL 8.6-10.6 7265680495) eGFR (test code = mL/min/1.73m2 5005943156) ANTHONY (test code = ANTHONY) Association of [...] tests). Lab Interpretation Abnormal (test code = 49951-2) [facility] CenterHep[facility] (ALB, T.PRO, BILI T, BU/BC, ALT, AST, ALK PHOS)2020-06-26 21:07:28 Test Item Value Reference Range Interpretation Comments TOTAL BILI (test code = 5282313592) 0.3 mg/dL 0.1-1.1 BILI UNCON (test code = 6596350957) 0.1 mg/dL 0.1-1.1 BILI CONJ (test code = 2317742254) 0.0 mg/dL 0.0-0.3 T PROTEIN (test code = 4162373659) 7.4 g/dL 6.3-8.2 ALBUMIN (test code = 0516986445) 4.4 g/dL 3.5-5.0 ALK PHOS (test code = 0798968016) 138 U/L 34-122 H ALTv (test code = 1742-6) 32 U/L 5-35 AST(SGOT) (test code = 9388502248) 40 U/L 13-40 Lab Interpretation (test code = Abnormal 36204-1) [facility] with [id number] 20:55:04 Test Item Value Reference Range Interpretation Comments WBC (test code = See_Comment [Automated 1490-2) message] The sy stem which generated this [...] RDW-SD (test code = 49.3 fL 39.0-49.9 27443-4) RDW-CV (test code = 13.7 % 12.0-15.5 788-0) PLT (test code = See_Comment [Automated 777-3) message] The sy stem which generated this result transmitted reference range : 166 - 358 10*3/ ?L. The reference r miky was not used to interpret this result as normal/abnormal . MPV (test code = 10.7 fL 9.5-12.9 94478-6) NRBC/100 WBC (test See_Comment [Automat ed code = 0712792271) message] The system which generated this result transmitted reference range : 0.0 - 10.0 /100 WBCs. The refer ence range was not u sed to interpret th is result as normal/abnormal . NRBC x10^3 (test code <0.01 See_Comment [Auto mated = 0493605859) message] The s ystem which generated this result transmitted reference range : 10*3/?L. The reference range was not used to interpret this result as normal/abnormal . GRAN MAT (NEUT) % 57.2 % (test code = 770-8) IMM GRAN % (test code 0.20 % = 0431607683) LYMPH % (test code = 31.8 % 736-9) MONO % (test code = 9.9 % 5905-5) EOS % (test code = 0.6 % 713-8) BASO % (test code = 0.3 % 706-2) GRAN MAT x10^3(ANC) 3.80 10*3/uL 1.88-7.09 (test code = 8873843562) IMM GRAN x10^3 (test <0.03 0.00-0.06 code = 6729953890) LYMPH x10^3 (test code 2.11 10*3/uL 1.32-3.29 = 731-0) MONO x10^3 (test code 0.66 10*3/uL 0.33-0.92 = 742-7) EOS x10^3 (test code = 0.04 10*3/uL 0.03-0.39 711-2) BASO x10^3 (test code <0.03 0.01-0.07 = 704-7) Lab Interpretation Abnormal (test code = 38138-1) [facility]. METABOLIC PANEL (42585)2020-06-01 11:34:39 Test Item Value Reference Range Interpretation Comments NA (test code = 137 mmol/L 135-145 1667545893) K (test code = 4.3 mmol/L 3.5-5.0 6610400779) CL (test code = 106 mmol/L 98-108 2011558767) CO2 TOTAL (test code = 26 mmol/L 23-31 8080640980) AGAP (test code = 2-16 6939437166) BUN (test code = 13 mg/dL 7-23 9846457162) GLUCOSE (test code = 81 mg/dL 70-110 5803495714) CREATININE (test code = 0.76 mg/dL 0.50-1.04 6850382721) TOTAL BILI (test code = 0.4 mg/dL 0.1-1.6 5449445300) CALCIUM (test code = 8.5 mg/dL 8.6-10.6 L 1144919432) T PROTEIN (test code = 6.0 g/dL 6.3-8.2 L 7050532712) ALBUMIN (test code = 3.5 g/dL 3.5-5.0 5465734720) ALK PHOS (test code = 128 U/L 34-122 H 2023668651) ALTv (test code = 54 U/L 5-35 H 1742-6) AST(SGOT) (test code = 51 U/L 13-40 H 6400915043) eGFR (test code = mL/min/1.73m2 0698668780) ANTHONY (test code = ANTHONY) Association of [...] tests). Lab Interpretation Abnormal (test code = 78452-8) [facility] CenterLAB ONLY COVID [id number] 02:48:13COVID DMT InterpretationInterpretation/Recommendations: Molecular NAAT Tests for [...] week of symptoms). Tests for IgM and/or IgG Antibodies to the SARS-CoV-2 Virus: If the patient develops COVID-19 illness in the future, testing for IgM and IgG antibodies approximately 3 weeks [...] COVID-19 testing the patient has had at [facility], including molecular NAAT testing (more commonly known as PCR testing and Rapid ID Now testing) and antibody testing. It does not take into account any testing that a patient has had outside of the [facility] medical record. [facility] LABORATORY SERVICESCOVID ResultsSA RS-CoV-2 Rapid ID NOW (no units) ? ? Date ? Value ? 05/30/2020 ? Not Detected ? [facility] METABOLIC PANEL (NA, K, CL, CO2, GLUCOSE, BUN, CREATININE, CA)2020-05-31 15:23:27 Test Item Value Reference Range Interpretation Comments NA (test code = 137 mmol/L 135-145 4679869748) K (test code = 4.0 mmol/L 3.5-5.0 7936480972) CL (test code = 105 mmol/L 98-108 5990000907) CO2 TOTAL (test code 27 mmol/L 23-31 = 7937667657) AGAP (test code = 2-16 8721209409) BUN (test code = 14 mg/dL 7-23 5019268961) GLUCOSE (test code = 92 mg/dL 70-110 9163491073) CREATININE (test code 0.72 mg/dL 0.50-1.04 = 4523356703) CALCIUM (test code = 8.8 mg/dL 8.6-10.6 3188438332) eGFR (test code = mL/min/1.73m2 8599452016) ANTHONY (test code = ANTHONY) Association of [...] or urine or abnormalities in imaging tests). [facility] with Bhhaqqzkuwzu3327-35-86 12:40:08 Test Item Value Reference Range Interpretation Comments WBC (test code = See_Comment [Automated 1090-2) message] The sy stem which generated this [...] (test code = 51.6 fL 39.0-49.9 H 06638-3) RDW-CV (test code = 14.3 % 12.0-15.5 788-0) PLT (test code = See_Comment [Automated 777-3) message] The sy stem which generated this result transmitted reference range : 166 - 358 10*3/ ?L. The reference r miky was not used to interpret this result as normal/abnormal . MPV (test code = 10.0 fL 9.5-12.9 32430-9) NRBC/100 WBC (test See_Comment [Automat ed code = 2901330433) message] The system which generated this result transmitted reference range : 0.0 - 10.0 /100 WBCs. The refer ence range was not u sed to interpret th is result as normal/abnormal . NRBC x10^3 (test code <0.01 See_Comment [Auto mated = 3380587392) message] The s ystem which generated this result transmitted reference range : 10*3/?L. The reference range was not used to interpret this result as normal/abnormal . GRAN MAT (NEUT) % 40.2 % (test code = 770-8) IMM GRAN % (test code 0.40 % = 5168405618) LYMPH % (test code = 47.8 % 736-9) MONO % (test code = 10.5 % 5905-5) EOS % (test code = 0.9 % 713-8) BASO % (test code = 0.2 % 706-2) GRAN MAT x10^3(ANC) 2.15 10*3/uL 1.88-7.09 (test code = 5485238891) IMM GRAN x10^3 (test <0.03 0.00-0.06 code = 8612706078) LYMPH x10^3 (test code 2.55 10*3/uL 1.32-3.29 = 731-0) MONO x10^3 (test code 0.56 10*3/uL 0.33-0.92 = 742-7) EOS x10^3 (test code = 0.05 10*3/uL 0.03-0.39 711-2) BASO x10^3 (test code <0.03 0.01-0.07 = 704-7) Lab Interpretation Abnormal (test code = 22871-4) [facility] WO [id number] 21:54:53 1. ?Nonobstructive left nephrolithiasis. No striated [...] 5 mm (total of 4 or 5 calculi).GI TRACT: No abnormal bowel dilation or wall thickening. Normal appendix.PELVIS/BLADDER:Status post hysterectomy. The urinary bladder is partiallydecompressed. No radiopaque urinary bladder calculi.PERITONEUM AND RETROPERITONEUM: No free air or fluid.LYMPH NODES: No lymphadenopathy.VESSELS: Unremarkable.BONES AND SOFT TISSUES: No suspicious lytic or sclerotic bony lesions. Tinybilateral pars defects at L4 and L5 with minimal grade 1 anterolisthesis ofL5 on S1 and L4 on L5.Tiny fat-containing umbilical hernia.IMPRESSION1. Nonobstructive left nephrolithiasis. No striated nephrograms to suggestpyelonephritis. Correlate clinically.2. Status post cholecystectomy and hysterectomy.3. 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 Correlate with biliary laboratory values.Preliminary Report Dictated by Resident: Reno Real MD., have r eviewed this study and agree with theabove report.[facility]OVID[facility] (ID NOW RAPID TESTING)2020-05-30 20:50:01 Test Item Value Reference Range Interpretation Comments SARS-CoV-2 Rapid ID NOW Not Detected Not Detected (test code = 22861-5) ANTHONY (test code = ANTHONY) ID NOW COVID-19 Assay is an isothermal nucleic acid amplification test intended for the qualitative detection of nucleic acid from SARS-CoV-2 viral RNA in nasopharyngeal (HEARING AID SPECIALIST) specimens. It is used under Emergency Use [...] indicated. Lab Interpretation Normal (test code = 01577-9) [facility] Metabolic Panel (NA, K, CL, CO2, GLUCOSE, BUN, CREATININE, CA)2020-05-30 20:40:22 Test Item Value Reference Range Interpretation Comments NA (test code = 139 mmol/L 135-145 4144976710) K (test code = 4.0 mmol/L 3.5-5.0 0312789549) CL (test code = 105 mmol/L 98-108 6811954688) CO2 TOTAL (test code 25 mmol/L 23-31 = 0521076814) AGAP (test code = 2-16 8819576931) BUN (test code = 18 mg/dL 7-23 4198423452) GLUCOSE (test code = 100 mg/dL 70-110 6792761618) CREATININE (test code 0.66 mg/dL 0.50-1.04 = 9331567496) CALCIUM (test code = 9.2 mg/dL 8.6-10.6 8390079541) eGFR (test code = mL/min/1.73m2 9094308171) ANTHONY (test code = ANTHONY) Association of [...] urine or abnormalities in imaging tests). [facility] (ALB, T.PRO, BILI T, BU/BC, ALT, AST, ALK PHOS)2020-05-30 20:40:22 Test Item Value Reference Range Interpretation Comments TOTAL BILI (test code = 9936427917) 0.4 mg/dL 0.1-1.1 BILI UNCON (test code = 3101794098) 0.2 mg/dL 0.1-1.1 BILI CONJ (test code = 7197429847) 0.0 mg/dL 0.0-0.3 T PROTEIN (test code = 3271708833) 7.7 g/dL 6.3-8.2 ALBUMIN (test code = 0246048669) 4.6 g/dL 3.5-5.0 ALK PHOS (test code = 1877984350) 158 U/L 34-122 H ALTv (test code = 1742-6) 70 U/L 5-35 H AST(SGOT) (test code = 5934565835) 46 U/L 13-40 H Lab Interpretation (test code = Abnormal 24975-8) [facility]2021-[facility]18 20:37:21 Test Item Value Reference Range Interpretation Comments APTT Patient (test See_Comment [Automat ed code = 3173-2) message] The system which generated this result transmitted reference range : 23 - 38 Seconds . The reference range was not used to interpr et this result as normal/abnormal . ANTHONY (test code = ANTHONY) The [facility] patient population mean normal value for aPTT is 30 seconds. Lab Interpretation Normal (test code = 63514-9) [facility] CenterProthrombin Time (PT) / [id number] 20:35:00 Test Item Value Reference Range Interpretation Comments PROTIME PATIENT (test See_Comment [Auto mated message] code = 5964-2) The system [employer] generated this result transmitted ref erence range: 12.0 - 1 4.7 Seconds. The re ference range was not u sed to interpret this result as normal/abnor mal. INR (test code = 6301-6) Nor mal INR <1.1; Warfarin Therap eutic range 2.0 to 3. 0 or 2.5 to 3.5, dep ending upon the indica tions. Lab Interpretation (test Normal code = 76103-1) [facility] CenterUrinalysis2021-04-18 20:34:10 Test Item Value Reference Range Interpretation Comments APPEARANCE (test code = Clear Clear 0743988457) COLOR (test code = Yellow Yellow 5860489136) PH (test code = 4.8-8.0 6334020346) SP GRAVITY (test code = 1.003-1.030 5559549789) GLU U QUAL (test code = Normal Normal 5483767392) BLOOD (test code = Negative Negative 5183885920) KETONES (test code = Negative Negative 0366859806) PROTEIN (test code = Negative Negative 2887-8) UROBILIN (test code = Normal Normal 4033341793) BILIRUBIN (test code = Negative Negative 6930261713) NITRITE (test code = Negative Negative 2370986211) LEUK MURRAY (test code = 25/uL Negative A 6873311683) RBC/HPF (test code = See_Comment [Autom ated message] 2299128236) The system [employer] generated this result transmitted ref erence range: 0 - 3 HP F. The reference range was not used to int erpret this result as normal/abnormal . WBC/HPF (test code = See_Comment [Autom ated message] 8138584571) The system [employer] generated this result transmitted ref erence range: 0 - 5 HP F. The reference range was not used to int erpret this result as normal/abnormal . BACTERIA (test code = Few Negative A 9080691740) MUCOUS (test code = Slight Negative LPF A 0140110682) SQ EPITH (test code = HPF 2686306261) Lab Interpretation (test Abnormal code = 96952-1) [facility] with Glsqouuytjla1335-86-65 20:27:23 Test Item Value Reference Range Interpretation [...] RDW-SD (test code = 49.6 fL 39.0-49.9 02661-7) RDW-CV (test code = 14.1 % 12.0-15.5 788-0) PLT (test code = See_Comment [Automated 777-3) message] The sy stem which generated this result transmitted reference range : 166 - 358 10*3/ ?L. The reference r miky was not used to interpret this result as normal/abnormal . MPV (test code = 9.7 fL 9.5-12.9 43338-4) NRBC/100 WBC (test See_Comment [Automat ed code = 9256117527) message] The system which generated this result transmitted reference range : 0.0 - 10.0 /100 WBCs. The refer ence range was not u sed to interpret th is result as normal/abnormal . NRBC x10^3 (test code <0.01 See_Comment [Auto mated = 1053483522) message] The s ystem which generated this result transmitted reference range : 10*3/?L. The reference range was not used to interpret this result as normal/abnormal . GRAN MAT (NEUT) % 49.6 % (test code = 770-8) IMM GRAN % (test code 0.30 % = 4952949552) LYMPH % (test code = 38.7 % 736-9) MONO % (test code = 10.4 % 5905-5) EOS % (test code = 0.8 % 713-8) BASO % (test code = 0.2 % 706-2) GRAN MAT x10^3(ANC) 3.26 10*3/uL 1.88-7.09 (test code = 3989396868) IMM GRAN x10^3 (test <0.03 0.00-0.06 code = 7004430516) LYMPH x10^3 (test code 2.54 10*3/uL 1.32-3.29 = 731-0) MONO x10^3 (test code 0.68 10*3/uL 0.33-0.92 = 742-7) EOS x10^3 (test code = 0.05 10*3/uL 0.03-0.39 711-2) BASO x10^3 (test code <0.03 0.01-0.07 = 704-7) Lab Interpretation Abnormal (test code = 29710-3) [facility] CenterLactic Acid Whole Vrcaw5923-40-29 20:24:41 Test Item Value Reference Range Interpretation Comments LACTIC ACID (test code = 1.17 mmol/L 0.50-2.20 7631546902) Lab Interpretation (test code = Normal 34486-3) [facility] CenterUrinalysis2021-04-15 00:29:10 Test Item Value Reference Range Interpretation Comments APPEARANCE (test code = Clear Clear 5462861881) COLOR (test code = Yellow Yellow 1669656658) PH (test code = 4.8-8.0 8430300124) SP GRAVITY (test code = 1.003-1.030 2753059288) GLU U QUAL (test code = Normal Normal 7140835139) BLOOD (test code = Negative Negative 4814964858) KETONES (test code = Negative Negative 9168609091) PROTEIN (test code = Negative Negative 2887-8) UROBILIN (test code = Normal Normal 1318415661) BILIRUBIN (test code = Negative Negative 2282159497) NITRITE (test code = Negative Negative 5030722155) LEUK MURRAY (test code = 25/uL Negative A 1628142531) RBC/HPF (test code = See_Comment [Autom ated message] 9817507696) The system [employer] generated this result transmitted ref erence range: 0 - 3 HP F. The reference range was not used to int erpret this result as normal/abnormal . WBC/HPF (test code = See_Comment H [Autom ated message] 3730863622) The system [employer] generated this result transmitted ref erence range: 0 - 5 HP F. The reference range was not used to int erpret this result as normal/abnormal . BACTERIA (test code = Few Negative A 1386030002) MUCOUS (test code = Slight Negative LPF A 3796463402) SQ EPITH (test code = HPF 3781559018) Lab Interpretation (test Abnormal code = 23215-3) [facility] Metabolic Panel (NA, K, CL, CO2, GLUCOSE, BUN, CREATININE, CA)2020-05-26 23:56:22 Test Item Value Reference Range Interpretation Comments NA (test code = 140 mmol/L 135-145 9376478904) K (test code = 3.8 mmol/L 3.5-5.0 2084743207) CL (test code = 104 mmol/L 98-108 5337662923) CO2 TOTAL (test code 27 mmol/L 23-31 = 0120719743) AGAP (test code = 2-16 4816982576) BUN (test code = 15 mg/dL 7-23 1369610970) GLUCOSE (test code = 95 mg/dL 70-110 2551519783) CREATININE (test code 0.60 mg/dL 0.50-1.04 = 1229300200) CALCIUM (test code = 9.0 mg/dL 8.6-10.6 2906968327) eGFR (test code = mL/min/1.73m2 8058280661) ANTHONY (test code = ANTHONY) Association of [...] urine or abnormalities in imaging tests). [facility] (ALB, T.PRO, BILI T, BU/BC, ALT, AST, ALK PHOS)2020-05-26 23:55:42 Test Item Value Reference Range Interpretation Comments TOTAL BILI (test code = 1940881608) 0.3 mg/dL 0.1-1.1 BILI UNCON (test code = 2070256053) 0.2 mg/dL 0.1-1.1 BILI CONJ (test code = 3199321721) 0.0 mg/dL 0.0-0.3 T PROTEIN (test code = 6697969663) 7.5 g/dL 6.3-8.2 ALBUMIN (test code = 3509922923) 4.5 g/dL 3.5-5.0 ALK PHOS (test code = 2735510187) 165 U/L 34-122 H ALTv (test code = 1742-6) 110 U/L 5-35 H AST(SGOT) (test code = 0986111610) 66 U/L 13-40 H Lab Interpretation (test code = Abnormal 17683-1) [facility] with Zvjadegtopfu2439-08-41 23:42:55 Test Item Value Reference Range Interpretation [...] RDW-SD (test code = 48.4 fL 39.0-49.9 35137-7) RDW-CV (test code = 13.6 % 12.0-15.5 788-0) PLT (test code = See_Comment [Automated 777-3) message] The sy stem which generated this result transmitted reference range : 166 - 358 10*3/ ?L. The reference r miky was not used to interpret this result as normal/abnormal . MPV (test code = 9.8 fL 9.5-12.9 92188-1) NRBC/100 WBC (test See_Comment [Automat ed code = 2399355258) message] The system which generated this result transmitted reference range : 0.0 - 10.0 /100 WBCs. The refer ence range was not u sed to interpret th is result as normal/abnormal . NRBC x10^3 (test code <0.01 See_Comment [Auto mated = 1749793942) message] The s ystem which generated this result transmitted reference range : 10*3/?L. The reference range was not used to interpret this result as normal/abnormal . GRAN MAT (NEUT) % 61.8 % (test code = 770-8) IMM GRAN % (test code 0.70 % = 7712016641) LYMPH % (test code = 27.3 % 736-9) MONO % (test code = 9.0 % 5905-5) EOS % (test code = 1.0 % 713-8) BASO % (test code = 0.2 % 706-2) GRAN MAT x10^3(ANC) 5.01 10*3/uL 1.88-7.09 (test code = 2110265786) IMM GRAN x10^3 (test 0.06 10*3/uL 0.00-0.06 code = 7591853228) LYMPH x10^3 (test code 2.22 10*3/uL 1.32-3.29 = 731-0) MONO x10^3 (test code 0.73 10*3/uL 0.33-0.92 = 742-7) EOS x10^3 (test code = 0.08 10*3/uL 0.03-0.39 711-2) BASO x10^3 (test code <0.03 0.01-0.07 = 704-7) Lab Interpretation Abnormal (test code = 12668-7) [facility]Ur[facility]ysis2021-[facility]-01 19:25:57 Test Item Value Reference Range Interpretation Comments APPEARANCE (test code = Clear Clear 3066783910) COLOR (test code = Yellow Yellow 3100428995) PH (test code = 4.8-8.0 6948236007) SP GRAVITY (test code = >1.060 1.003-1.030 H 3500636855) GLU U QUAL (test code = Normal Normal 8852197830) BLOOD (test code = Negative Negative 6939187759) KETONES (test code = Negative Negative 2331045687) PROTEIN (test code = Negative Negative 2887-8) UROBILIN (test code = Normal Normal 9708860013) BILIRUBIN (test code = Negative Negative 4240774559) NITRITE (test code = Negative Negative 9534697178) LEUK MURRAY (test code = 25/uL Negative A 5995060383) RBC/HPF (test code = See_Comment [Autom ated message] 2051864288) The system [employer] generated this result transmitted ref erence range: 0 - 3 HP F. The reference range was not used to int erpret this result as normal/abnormal . WBC/HPF (test code = See_Comment [Autom ated message] 9977396018) The system [employer] generated this result transmitted ref erence range: 0 - 5 HP F. The reference range was not used to int erpret this result as normal/abnormal . BACTERIA (test code = Few Negative A 3101723963) MUCOUS (test code = Slight Negative LPF A 2064839886) SQ EPITH (test code = HPF 9179710891) Lab Interpretation (test Abnormal code = 43038-8) [facility] PEL[facility] W [id number] 17:38:50CT Abdomen and Pelvis with intravenous contrast. CLINICAL HISTORY: Acute generalized abdominal pain.DOSE: Up-to-date CT equipment and radiation dose reduction techniques wereemployed. CTDIvol: 7.70 mGy. DLP: 371 mGy-cm. TECHNIQUE : Contiguous axial imaging from the level of the lung basesthrough the pubic symphysis were performed after the uncomplicatedadministration of Omnipaque contrast material. ?Coronal and sagittalreconstructions were obtained. Auto mA and/or iterative reconstruction wereused to reduce radiation dose. FINDINGS: Comparison is made with ultrasound study of 12/08/2019 as well asCT studies of 12/08/2019. Lower lungs: Clear. No pleural effusion or pericardial effusion. Nodefinitesigns of hiatal hernia. Liver, Gallbladder and Spleen: Liver measures approximately 14.9 cm andspleen measures 9.6 x 3 cm in size. No focal lesions detected in the liveror in the spleen. Cholecystectomy noted. The limited bile ducts are seen inboth intrahepatic as well as extrahepatic ducts with common bile ductmeasuring up to 10-12 mm. Pancreatic duct is not dilated. Peritoneum: ?No free air or freefluid. No lymphadenopathy. Pancreas and Adrenals: ?Unremarkable pancreas and adrenal glands. Kidneysand Ureters: 2 and possibly third nonobstructing 2 to 3 mm stonesnoted in the left kidney. No stonesare seen in the right kidney. Nohydroureter or [...] performed after the uncomplicatedadministration of Omnipaque contrast material. Coronal and sagittalreconstructions were obtained. Auto [...] Normal. Patent hepatic/portal venous systems and renal veins.Retroperitoneum: No abnormal fluid or lymphadenopathy.Bowel: No acute findings. Normal appendix is visualized.Bladder and Reproductive Organs: S/P hysterectomy. Urinary bladder isincompletely distended and unopacified.Bones: Exaggerated lumbar lordosis, grade 1 spondy lolisthesis at L4-L5 aswell as L5-S1 with bilateral spondylolysis of L4 and L5.Soft tissues: Unremarkable.CONCLUSION:1. No acute intra-abdominal or pelvic abnormalities detected.2. S/P cholecystectomy and hysterectomy. Dilated intrahepatic andextrahepatic bile ducts could be secondary to cholecystectomy and/orampullary stenosis. Pancreatic duct is of normal size.3. 2 and possibly 3 nonobstructing stones in the left kidney, eachmeasuring 2 to [address] [facility] (ALB, T.PRO, BILI T, BU/BC, ALT, AST, ALK PHOS)2020-05-13 17:24:50 Test Item Value Reference Range Interpretation Comments TOTAL BILI (test code = 8683963911) 0.5 mg/dL 0.1-1.1 BILI UNCON (test code = 4286556428) 0.2 mg/dL 0.1-1.1 BILI CONJ (test code = 2360844860) 0.0 mg/dL 0.0-0.3 T PROTEIN (test code = 2537939843) 8.0 g/dL 6.3-8.2 ALBUMIN (test code = 9726600536) 4.7 g/dL 3.5-5.0 ALK PHOS (test code = 5118724251) 142 U/L 34-122 H ALTv (test code = 1742-6) 29 U/L 5-35 AST(SGOT) (test code = 4908314332) 41 U/L 13-40 H Lab Interpretation (test code = Abnormal 36066-0) [facility] (NA, K, CL, CO2, GLUCOSE, BUN, CREATININE, CA)2020-05-13 17:24:49 Test Item Value Reference Range Interpretation Comments NA (test code = 139 mmol/L 135-145 6853494991) K (test code = 3.9 mmol/L 3.5-5.0 7741482843) CL (test code = 111 mmol/L 98-108 H 6219666817) CO2 TOTAL (test code = 19 mmol/L 23-31 L 6421505488) AGAP (test code = 2-16 7875175186) BUN (test code = 15 mg/dL 7-23 1032893958) GLUCOSE (test code = 123 mg/dL 70-110 H 6481872135) CREATININE (test code = 0.83 mg/dL 0.50-1.04 9516470639) CALCIUM (test code = 9.5 mg/dL 8.6-10.6 6226115084) eGFR (test code = mL/min/1.73m2 9705951709) ANTHONY (test code = ANTHONY) Association of [...] tests). Lab Interpretation Abnormal (test code = 91109-5) [facility] CenterLipase Noozu9279-20-29 17:24:49 Test Item Value Reference Range Interpretation Comments LIPASE (test code = 2722066170) 25 U/L 0-220 Lab Interpretation (test code = Normal 62117-6) [facility] with Grcsupgvubef5610-89-91 17:06:22 Test Item Value Reference Range Interpretation [...] RDW-SD (test code = 46.4 fL 39.0-49.9 26657-0) RDW-CV (test code = 13.3 % 12.0-15.5 788-0) PLT (test code = See_Comment [Automated 777-3) message] The sy stem which generated this result transmitted reference range : 166 - 358 10*3/ ?L. The reference r miky was not used to interpret this result as normal/abnormal . MPV (test code = 10.4 fL 9.5-12.9 83087-8) NRBC/100 WBC (test See_Comment [Automat ed code = 0968972529) message] The system which generated this result transmitted reference range : 0.0 - 10.0 /100 WBCs. The refer ence range was not u sed to interpret th is result as normal/abnormal . NRBC x10^3 (test code <0.01 See_Comment [Auto mated = 8144796599) message] The s [employer] which generated this result transmitted reference range : 10*3/?L. The reference range was not used to interpret this result as normal/abnormal . GRAN MAT (NEUT) % 69.6 % (test code = 770-8) IMM GRAN % (test code 0.40 % = 8104658472) LYMPH % (test code = 22.4 % 736-9) MONO % (test code = 7.1 % 5905-5) EOS % (test code = 0.4 % 713-8) BASO % (test code = 0.1 % 706-2) GRAN MAT x10^3(ANC) 5.65 10*3/uL 1.88-7.09 (test code = 7668659400) IMM GRAN x10^3 (test 0.03 10*3/uL 0.00-0.06 code = 0443156512) LYMPH x10^3 (test code 1.82 10*3/uL 1.32-3.29 = 731-0) MONO x10^3 (test code 0.58 10*3/uL 0.33-0.92 = 742-7) EOS x10^3 (test code = 0.03 10*3/uL 0.03-0.39 711-2) BASO x10^3 (test code <0.03 0.01-0.07 = 704-7) Lab Interpretation Abnormal (test code = 21459-8) [facility] ABDOMEN FGALCMX1375-68-86 18:12:20 Status post cholecystectomy. Mild extra hepatic biliary ductal dilatation can been expected findinginthe post cholecystectomy setting. RIGHT UPPER QUADRANT ABDOMINAL SONOGRAM TECHNIQUE: Grayscale andlimited color Doppler images of the right upperquadrant of the abdomen were obtained. INDICATION: Right lower quadrant pain. COMPARISON: 12/08/2019 FINDINGS: Liver measures 14.2 cm in craniocaudal dimension. Essentially normalhepatic echogenicity and echotexture. No focal hepatic lesions identifiedto the extent visualized. Main portal vein is patent with normalhepatopedal flow. Main portal vein measures 1.1 cm in AP diameter at portahepatis. The common bile duct measures 7 mm in AP diameter at portahepatis. Nodiscernible intrahepatic biliary ductal dilatation. Visualized portions of the right kidney appear unremarkable. Visualized portions of the pancreatic head and body appear unremarkable.Pancreatic tail is obscured by bowel gas. Proximal abdominal aorta measures 1.7 cm in AP diameter, normal. Noabnormal aneurysmal dilatation in the mid and distal aorta. [facility] - 12/08/2019 1:13 PM CDTRIGHT UPPER QUADRANT ABDOMINAL SONOGRAMTECHNIQUE: Grayscale and limited color Doppler images of the right upperquadrant of the abdomen were obtained.INDICATION: Right lower quadrant t[place] n.COMPARISON: 12/08/2019FINDINGS:Liver measures 14.2 cm in craniocaudal dimension. [...] aneurysmal dilatation in the mid and distal aorta.IMPRESSIONStatus post cholecystectomy.Mild extra hepatic biliary ductal dilatation can been expected finding inthe post cholecystectomy setting.[facility] CenterXR CHEST 1 EE9004-02-97 18:03:08Findings and Impression: Clear lungs. No pleural effusion or pneumothorax.Heart size is normal. No acute osseous abnormality. PORTABLE CHEST RADIOGRAPH History: RUQ pain Comparison: 12/25/2018 TECHNIQUE: AP view of the chest. [facility] - 12/08/2019 1:04 PM CDTPORTABLE CHEST RADIOGRAPHHistory: RUQ pain Comparison: 12/25/2018TECHNIQUE: AP view of the chest.IMPRESSIONFindings and Impression: Clear lungs. No pleural effusion or pneumothorax.Heart size is normal. No acute osseous abnormality. [facility] ([id number])2019-12-08 17:36:00 Test Item Value Reference Range Interpretation Comments NA (test code = 139 mmol/L 135-145 0982781586) K (test code = 4.2 mmol/L 3.5-5 2912168069) CL (test code = 102 mmol/L 98-108 3614184439) CO2 TOTAL (test code = 27 mmol/L 23-31 7555286270) AGAP (test code = 2-16 1594566759) BUN (test code = 20 mg/dL 7-23 2548085825) GLUCOSE (test code = 105 mg/dL 70-110 2006277828) CREATININE (test code = 1.01 mg/dL 0.5-1.04 5134633657) TOTAL BILI (test code = 0.6 mg/dL 0.1-1.0 7497065466) CALCIUM (test code = 9.9 mg/dL 8.6-10.6 2618509444) T PROTEIN (test code = 8.5 g/dL 6.3-8.2 H 7638808571) ALBUMIN (test code = 4.5 g/dL 3.5-5 2087396327) ALK PHOS (test code = 118 U/L 34-122 8640995047) ALTv (test code = 32 U/L 5-35 1742-6) AST(SGOT) (test code = 39 U/L 13-40 0714394817) eGFR Calculation mL/min/1.73m2 (Non-) (test code = 2360888439) eGFR Calculation mL/min/1.73m2 () (test code = 2652060583) ANTHONY (test code = ANTHONY) Association of [...] tests). Lab Interpretation Abnormal (test code = 03050-1) [facility]URIN[facility]IS2020-10-26 17:20:00 Test Item Value Reference Range Interpretation Comments APPEARANCE (test code = Hazy Clear A 9370806248) COLOR (test code = Yellow Yellow 7654174497) PH (test code = 4.8-8.0 7322798176) SP GRAVITY (test code = 1.003-1.030 H [id number]) GLU U QUAL (test code = Normal Normal 9211582798) BLOOD (test code = Negative Negative 7508179460) KETONES (test code = Negative Negative 9633882194) PROTEIN (test code = 30 mg/dL Negative A 2887-8) UROBILIN (test code = Normal Normal 8372470130) BILIRUBIN (test code = Negative Negative 6948559889) NITRITE (test code = Negative Negative 5125442575) LEUK MURRAY (test code = 75/uL Negative A 5822117362) RBC/HPF (test code = See_Comment [Autom ated message] 5883337457) The system [employer] generated this result transmitted ref erence range: 0 - 3 HP F. The reference range was not used to int erpret this result as normal/abnormal . WBC/HPF (test code = See_Comment [Autom ated message] 9716952706) The system [employer] generated this result transmitted ref erence range: 0 - 5 HP F. The reference range was not used to int erpret this result as normal/abnormal . BACTERIA (test code = Negative Negative 4551427904) MUCOUS (test code = Slight Negative LPF A 3162028871) SQ EPITH (test code = HPF 5989485568) HYAL CAST (test code = See_Comment [Aut omated message] 6847126942) The system whic h generated this result transmitted ref erence range: <=2 LPF. The reference range was not used to int erpret this result as normal/abnormal . Lab Interpretation (test Abnormal code = 13927-9) [facility] WITH [id number] 17:05:00 Test Item Value Reference Range Interpretation [...] RDW-SD (test code = 43.5 fL 39-49.9 11701-2) RDW-CV (test code = 11.9 % 12-15.5 L 788-0) PLT (test code = See_Comment [Automated 777-3) message] The sy stem which generated this result transmitted reference range : 166 - 358 10*3/ ?L. The reference r miky was not used to interpret this result as normal/abnormal . MPV (test code = 10.9 fL 9.5-12.9 28984-2) NRBC/100 WBC (test See_Comment [Automat ed code = 3526176264) message] The system which generated this result transmitted reference range : 0.0 - 10.0 /100 WBCs. The refer ence range was not u sed to interpret th is result as normal/abnormal . NRBC x10^3 (test code <0.01 See_Comment [Auto mated = 9101376250) message] The s ystem which generated this result transmitted reference range : 10*3/?L. The reference range was not used to interpret this result as normal/abnormal . GRAN MAT (NEUT) % 64.8 % (test code = 770-8) IMM GRAN % (test code 0.40 % = 4004363715) LYMPH % (test code = 27.0 % 736-9) MONO % (test code = 6.5 % 5905-5) EOS % (test code = 0.9 % 713-8) BASO % (test code = 0.4 % 706-2) GRAN MAT x10^3(ANC) 4.35 10*3/uL 1.88-7.09 (test code = 8427544683) IMM GRAN x10^3 (test 0.03 10*3/uL 0-0.06 code = 0388599306) LYMPH x10^3 (test code 1.82 10*3/uL 1.32-3.29 = 731-0) MONO x10^3 (test code 0.44 10*3/uL 0.33-0.92 = 742-7) EOS x10^3 (test code = 0.06 10*3/uL 0.03-0.39 711-2) BASO x10^3 (test code 0.03 10*3/uL 0.01-0.07 = 704-7) Lab Interpretation Abnormal (test code = 25067-8) [facility] [id number] 16:59:351. ?Nonobstructive left nephrolithiasis. 2. ?No radiographic findings to explain patient's abdominalor flank pain. 3. ?Partially visualized 4 mm solid nodule in the left lower lobe, thoughtto be unchanged.CT abdomen and pelvis without contrast REASON FOR STUDY: Flank pain, stone disease suspected COMP ARGELIASON: 06/24/2025 TECHNIQUE: Unenhanced multidetector axial CT images from lung bases throughpelvic inlet. As requested, no IV contrast was used. Coronal and sagittalMPR images also generated. INTRAVENOUS CONTRAST ADMINISTRATION: None. FINDINGS: Limited evaluation of abdominal and pelvic organs due tolack ofintravenous contrast. Lower chest: Partially visualized 4 mm nodule questionable calcificationwithin the left lower lobe (2:1). Hypoattenuating blood flow within the left lateral ventricle may representanemia. ABDOMEN AND PELVISLiver: Hepatic dome is not fully within ernpb-oi-psos. No focal hepa ticlesions identified within limits of unenhanced technique. Biliary Tract/GB: Status post cholecystectomy. Spleen: No splenomegaly. Pancreas: No pancreatic ductal dilatation. Punctate 2 to 3 mm calcificationat the pancreatic tail on 2:29. Adrenals: Within normal limits. Kidneys: Left kidney contains a pproximately 5-6 nonobstructive calculi withthe largest 2 within the left interpolar and upper pole regions measuring 5and 4 mm, respectively. No right nephrolithiasis. Hyperattenuating appearance of bilateral pyramids. Bowel: No abnormal bowel dilatation or wall thickening. Normal appendix. Peritoneum: No pneumoperitoneum or free fluid. Vasculature: Within normal limits. Lymph Nodes: Within normal limits. ? Pelvic Organs: Urinary bladder is decompressed. Uterus is not visualized,presumably status post hysterectomy. Abdominal/Pelvic Wall: Evidence of scarring within the ventralabdominal/pelvic wall. Tiny fat-containing umbilical hernia. BONES: Bilateral L4 and L5 pars defe cts without appreciable listhesis. [facility], Radiant Results Inft [...] PELVISLiver: Hepatic dome is not fully within [id number]-crmd. No focal hepaticlesions identified within limits of unenhanced technique.Biliary Tract/GB: Status post cholecystectomy.Spleen: No sple nomegaly.Pancreas: No pancreatic ductal dilatation. Punctate 2 to 3 mm calcificationat the pancreatic tail on 2:29.Adrenals: Within normal limits.Kidneys: Left kidney contains approximately 5-6 nonobstructive calculi withthe largest 2 within the left interpolar and upper pole regions measuring 5and 4 mm, respectively. No right nephrolithiasis.Hyperattenuating appearance of bilateral pyramids.Bowel: No abnormal bowel dilatation or wall thickening. Normal appendix.Peritoneum: No pneumoperitoneum or free fluid.Vasculature: Within normal limits.Lymph Nodes: Within normal limits. Pelvic Organs: Urinary b ladder is decompressed. Uterus is not visualized,presumably status post hysterectomy.Abdominal/Pelvic Wall: Evidence of scarring within the ventralabdominal/pelvic wall. Tiny fat-containing umbilical hernia.BONES: Bilateral L4 and L5 pars defects without appreciable listhesis.IMPRESSION1. Nonobstructive left nephrolithiasis. 2. No radiographic findings to explain patient's abdominal or flank pain.3. Partially visualized 4 mm solid nodule in the left lower lobe, thoughtto be unchanged.[facility] POCT [id number] 16:12:00 Test Item Value Reference Range Interpretation Comments POCT PREG (test code = 1605) negative On board controls acceptable with present C Line (test code = 3574) POCT PREG LOT # (test code = 3575) [id number] POCT PREG TEST DATE (test 05/12/2021 code = 3576) Lab Interpretation (test code = Normal 51757-1) [facility], [id number] 15:17:00 Test Item Value Reference Range Interpretation Comments POCT U SP GRAV (test code = 1.025 mg/dl 1.005-1.025 5) POCT PH U (test code = 3254) 6.0 mg/dl 5-8 POCT U LEUK EST (test code = Trace Negative - Negative 3) POCT U NIT (test code = 3262) Negative Negative - Negative POCT U PROT (test code = Negative Negative - Negative 9) POCT U GLU (test code = 3256) Negative Negative - Negative POCT U KETONE (test code = Negative Negative - Negative 8) POCT U UROBILI (test code = 0.2 mg/dl 0.2-1 0) POCT U BILI (test code = Negative Negative - Negative 3261) POCT U BLD (test code = 3257) Negative Negative - Negative POCT U COLOR (test code = yellow 3266) POCT U APPEAR (test code = clear 3267) Lab Interpretation (test code Abnormal = 00987-5) [facility], [id number] 15:17:00 Test Item Value Reference Range Interpretation [...] 3267) Lab Interpretation (test code Abnormal = 08746-7) [facility]IN, [id number] 19:53:00With seizure protocolThin coronal cuts especially around the temporal region.FINAL REPORT MRI Brain with and without contrast Clinical History: Seizure, nontraumatic (Age > 41y) Technique: MRI of the brain utilizing axial T1, T2, FLAIR, GRE, DWI, coronalT1, T2, FLAIR, sagittal T1. Postgadolinium axial and coronal T1-weighted images. Comparisons: None Findings: There is no evidence for focal cortical dysplasia or heterotopia. The hippocampal formationsare symmetrical in size, shape, and signal intensity. Brain parenchyma is otherwise normal in morphology. No midline shift. No restricted diffusion to suggest recent ischemic insult. No abnormal susceptibility. No hydrocephalus. Orbits are within normal limits. No obstructive paranasal sinus disease. IMPRESSION: No anatomic etiology of seizure identified. Signed: Karen Shirleyeport Verified Date/Time: 10/25/2018 19:53:41 Reading Location: [address] Neuro Reading Room EEG AWAKE AND [id number] 19:37:00For STAT EEG- after 5 PM weekdays, weekends and holidays, page the on-call EEG TechReason for exam:-& gt;altered mental statusDATE OF EXAMINATION: 10/25/18EE NO: [id number] 10: R56.9CPT CODE: [id number] SUMMARY:This is a digital EEG recorded with 32 input channels on a [employer] system and then reviewed with bipolar and [...] seizure for the symptom(s) of interest. HEMOGLOBIN [id number] 14:02:00 Test Item Value Reference Range Interpretation Comments HEMOGLOBIN A1C (BEAKER) (test code = 5.6 % 4.3-6.1 368) TSH/FREE T4 IF [id number] 06:11:00 Test Item Value Reference Range Interpretation Comments THYROID STIMULATING HORMONE 3.63 uIU/mL 0.35-4.94 (BEAKER) (test code = 772) VITAMIN B12 AND [id number] 06:11:00 Test Item Value Reference Range Interpretation Comments VITAMIN B12 (BEAKER) (test code = 272 pg/mL 213-816 774) FOLATE (BEAKER) (test code = 362) 9.4 ng/mL >=7.0 [id number] 05:58:00 Test Item Value Reference Range Interpretation Comments PHOSPHORUS (BEAKER) (test code = 3.6 mg/dL 2.3-4.7 604) [id number] 05:58:00 Test Item Value Reference Range Interpretation Comments MAGNESIUM (BEAKER) (test code = 2.1 mg/dL 1.6-2.6 627) BASIC METABOLIC [id number] 05:58:00 Test Item Value Reference Range Interpretation [...] NOT APPLICABLE FOR DIALYSIS PATIEN TS. LIPID [id number] 05:58:00 Test Item Value Reference Range Interpretation [...] 130-159 High 160-189 Very High >=190HEPATIC FUNCTION [id number] 05:58:00 Test Item Value Reference Range Interpretation [...] (test code = 413) CT, BRAIN, WITHOUT [id number] 00:33:00FINAL REPORT EXAM: CT, BRAIN, WITHOUT CONTRAST CLINICAL INDICATION: Altered mental status. TECHNIQUE: Helical CT images from skull base to vertex without IV contrast. This exam wasperformed according to our departmental dose-optimization program, which includes automated exposurecontrol, adjustment of the mA and/or kV according to patient size and/or use of iterative reconstruction technique. COMPARISON: CT from nine hours prior FINDINGS: Parenchyma: No infarction. No hemorrhage. No mass or mass effect. Extra-axial Collection: None Ventricular System: Normal Dural Venous Sinuses: Normal Osseous Structures: Normal Included Orbits: Normal Paranasal Sinuses: Predominantly clear Tympanomastoid Cavities: Normal Other: None IMPRESSION:No acute abnormality on noncontrast CT of the head. Signed: Dionicio Salazar MDReport Verified Date/Time: 10/25/2018 00:33:20 Reading Location: [address] Neuro Reading Room POCT-GLUCOSE [id number] 23:26:00 Test Item Value Reference Range Interpretation Comments POC-GLUCOSE METER 77 mg/dL 70-110 TESTED AT [facility] 6720 (BEAKER) (test code = DEVAN Rice [facility] [address] 1538) SCREEN, [id number] 18:06:00 Test Item Value Reference Range Interpretation Comments TEST URINE (BEAKER) (test Negative code = 583) RAPID DRUG SCREEN, [id number] 16:54:00 Test Item Value Reference Range Interpretation [...] situations. Chain of custody not maintained. Some zpvh-tht-oeirsdg medications, as well as adulterants, may cause inaccurate results. Clinical correlation should be applied. A more comprehensivedrug screen or confirmation of a detected drug may be performed upon request.URINALYSIS W/ REFLEX URINE [id number] 15:45:00 Test Item Value Reference Range Interpretation [...] code = 1521) SOURCE(BEAKER) (test code = 2795) B-TYPE NATRIURETIC FACTOR (BNP)2018-10-24 15:41:00 Test Item Value Reference Range Interpretation Comments B-TYPE NATRIURETIC PEPTIDE (BEAKER) < pg/mL 0-100 (test code = 700) BASIC METABOLIC [id number] 15:41:00 Test Item Value Reference Range Interpretation [...] DATA TO CALCULA TE ESTIMATED GFR. TROPONIN [id number] 15:34:00 Test Item Value Reference Range Interpretation [...] acute neurological disease, and persistent tachyarrhythmia.HEPATIC FUNCTION [id number] 15:32:00 Test Item Value Reference Range Interpretation [...] (test code = 51 U/L 6-55 347) [id number] 15:27:00 Test Item Value Reference Range Interpretation Comments ETHANOL (BEAKER) (test code = 400) < mg/dL <=10 POCT-GLUCOSE [id number] 15:15:00 Test Item Value Reference Range Interpretation Comments POC-GLUCOSE METER 82 mg/dL 70-110 TESTED AT [facility] 67[facility] (BEAKER) (test code = [place] [address] 1538) RAD, CHEST, 1 VIEW, NON [id number] 15:13:00Reason for exam:->sobShould this be performed at the bedside?->YesFINAL REPORT INDICATION: sob COMPARISON: None TECHNIQUE: Single frontal view ofthe chest. FINDINGS: Lungs and pleura: Clear lungs. No effusion.Heart and mediastinum: Normal heart size. Unremarkable mediastinal contours.Osseous structures: No acute abnormality.Other: None. IMPRESSION: No acute intrathoracic abnormality. Signed: JR Escobar Robert MDReport Verified Date/Time: 10/24/2018 15:13:38 Reading Location: [facility] Radiology Reading Room CBC W/PLT COUNT & AUTO [id number] 15:06:00 Test Item Value Reference Range Interpretation [...] code = 2801) CT, SPINE, CERVICAL, WO [id number] 15:06:00Reason for exam:->r/o c- spine injuryIs the patient ?->UnknownWhat is the patient's sedation requirement?->No SedationFINAL REPORT CT Cervical spine CLINICAL HISTORY: Polytrauma, critical, head/C-spine injury suspectedr/o c-spine injury TECHNIQUE: Contiguous axial images of the cervical spine withcoronal and sagittal reformations to assess the alignment. This exam was performed according to the departmental dose optimization program which includes automated exposure control, adjustment of the mA and/or kV according to the patient size, and/or use of an iterative reconstruction technique. COMPARISON: None FINDINGS: The vertebral body heights are preserved without fracture or dislocation. Thereis no prevertebral soft tissue swelling. There is straightening of the cervical curvature with maintained alignment. Allowing for the lack of intrathecal contrast, there is no significant appearing central canal stenosis. There are scattered subcentimeter lymph nodes in the neck. The visualized lung apices are clear. IMPRESSION: Straightening of the cervical curvature without evidence for fracture. Signed: Cornelius Selby Verified Date/Time: 10/24/2018 15:06:41 Reading Location: [facility] C013V Neuro Reading Room CT, BRAIN/STROKE [id number] 14:38:00Reason for exam:->r/o cvaIs the patient ?->UnknownWhat is the patient's sedation requirement?->No SedationFINAL REPORT CT, BRAIN/STROKE PROTOCOL CLINICAL INDICATION: Neuro deficit(s), knight bacuter/o cva COMPARISON: None TECHNIQUE: Noncontrast axial CT imaging of the brain and skull. DOSE REDUCTION: Dose modulation, iterative reconstruction, and/or weight-based adjustment of the mA/kV wasutilized to reduce the radiation dose to as low as reasonably achievable. FINDINGS:No intracranial hemorrhage, midline shift or mass effect. Midline structures are normally developed. Mild chronic microvascular ischemic changes of the periventricular and subcortical white matter are present. No hydrocephalus. Orbits are within normal limits. No obstructive paranasal sinus disease. IMPRESSION: No acute intracranial findings If there is persistent clinical concern for intracranial pathology, MR examina tion is recommended for further characterization. Findings discussed with ED by Dr. Shirley at timeof this dictation Signed: Karen Shirley Verified Date/Time: 10/24/2018 14:38:49 Reading Location: [facility] C0[facility] Consult Reading Room "
[2021-09-30] MEDS ORDERED: NA CHLORIDE 0.9% 1,000 ML ONE (17:55)
[2021-09-30] MEDS ORDERED: MORPHINE 4 MG/ML SYR ONE (17:55)
[2021-09-30] MEDS ORDERED: ONDANSETRON 4 MG/2 ML VIAL ONE (17:55)
[2021-09-30 18:27] LABS: Absolute Lymphocytes (CBC) 2.8 K/uL (0.7-4.9); Hematocrit 32.5 % (36.0-45.0); MCV 90.7 fL (80-100); MPV 7.7 fL (7.6-11.3); RBC Red Blood Cell Count 3.59 M/uL (3.86-4.86)
[2021-09-30 18:44] LABS: Albumin 3.8 g/dL (3.4-5.0); Bilirubin Total 0.3 mg/dL (0.2-1.0); Potassium 3.4 mmol/L (3.5-5.1); Protein, Total 8.7 g/dL (6.4-8.2)
--- NOTE | 2021-09-30 19:42 | RAD REPORT ---
EXAM DESCRIPTION: CT - Abdomen Pelvis W Contrast - 09/30/2021 7:28 pm CLINICAL HISTORY: Abdominal pain COMPARISON: August 2021 TECHNIQUE: Computed axial tomography of the abdomen pelvis was obtained. 100 cc Isovue-300 was admin istered intravenously. Oral contrast was not requested which limits evaluation of bowel and appendix All CT scans are performed using dose optimization technique as appropriate and may include automated exposure control or mA/KV adjustment according to patient size. FINDINGS: 9 millimeter left basilar lung nodule unchanged Cholecystectomy. Prominence of the common bile duct without significant change. Liver, spleen, pancreas and adrenals otherwise unremarkable Mild to moderate left hydronephrosis. Delayed concentration of contrast left kidney. Small bilateral renal calculi. Left ureter is dilated. 5 millimeter calculus left UVJ. Small renal cysts. Hysterectomy. No evidence of diverticulitis. No adnexal mass. Small umbilical hernia Mild anterior subluxation L5 on S1. Spondylolysis L5 IMPRESSION: 5 millimeter calculus left UVJ resulting in mild to moderate left hydronephrosis
[2021-09-30] MEDS ORDERED: HYDROMORPHONE HCL 1 MG/ML INJ ONE (19:48)
[2021-09-30] MEDS ORDERED: PROMETHAZINE INJ 25 MG/ML AMP ONE (20:02)
[2021-09-30] MEDS ORDERED: TAMSULOSIN 0.4 MG SR CAP ONE (20:02)
[2021-09-30] MEDS ORDERED: MAGNESIUM SULFATE 1 gm IVPB 1 GM/100 ML BAG IV ONE (20:03)
[2021-09-30 20:10] LABS: Urine Blood 3+ (Negative); Urine Glucose Negative (Negative); Urine Protein 1+ (Negative); Urine Specific Gravity 1.015 (1.005-1.030)
[2021-09-30 20:37] LABS: Urine Bacteria 20-50 /HPF (<20)
[2021-09-30 20:38] LABS: Urine Mucus 1+ /HPF (None Seen)
[2021-09-30 21:00] LABS: Urine Specific Gravity/Preg 1.015 (1.005-1.030)
--- NOTE | 2021-09-30 21:02 | EDPHYS ---
Physician Documentation [facility] Name: Mckenna Avila Age: 46 yrs Sex: Female : 1975 Arrival Date: 09/30/2021 Time: 17:23 Bed 3 Private MD: Roman Fallon T ED Physician Andrés Bishop HPI: 09/30 18:30 This 46 yrs old Female presents to ER via Ambulatory with complaints of kidney kb infection/pain, Nausea/Vomiting. 18:30 The patient complains of pain in the left flank and right flank. The pain does not kb radiate. Onset: The symptoms/episode began/occurred 2 month(s) ago. Modifying factors: The symptoms are alleviated by nothing. the symptoms are aggravated by palpation/percussion. Associated signs and symptoms: Pertinent positives: nausea, vomiting. Severity of pain: At its worst the pain was moderate in the emergency department the pain is unchanged. The patient has not experienced similar symptoms in the past. The patient has not recently seen a physician. 18:38 Pt reports she has had a kidney infection since July and has tried 8 oral antibiotics, kb but is still having flank pain. States it is making her crohns flare up so she is having nausea and vomiting as well. 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 - Social history:: Smoking status: Patient/guardian denies using alcohol, tobacco products. ROS: 18:29 Constitutional: Negative for fever, chills, and weight loss. kb 18:29 : Positive for flank pain. 18:29 All other systems are negative. 18:42 Abdomen/GI: Positive for nausea and vomiting, Negative for abdominal pain. kb Exam: 18:30 Constitutional: This is a well developed, well nourished patient who is awake, alert, kb and in no acute distress. Head/Face: Normocephalic, atraumatic. ENT: Moist Mucous membranes Cardiovascular: Regular rate and rhythm with a normal S1 and S2. No gallops, murmurs, or rubs. No pulse deficits. Respiratory: Respirations even and unlabored. No increased work of breathing. Talking in full sentences Abdomen/GI: Soft, non-tender. No distention Skin: Warm, dry with normal turgor. Normal color. MS/ Extremity: Pulses equal, no cyanosis. Neurovascular intact. Full, normal range of motion. Neuro: Awake and alert, GCS 15, oriented to person, place, time, and situation. Moves all extremities. Normal gait. Psych: Awake, alert, with orientation to person, place and time. Behavior, mood, and affect are within normal limits. 18:30 Back: CVA tenderness, that is moderate, is noted bilaterally. Vital Signs: 17:30 BP 136 / 102; Pulse 82; Resp 16; Temp 97.4(TE); Pulse Ox 100% on R/A; Weight 68.04 kg bm7 (R); Height 5 ft. 7 in. (170.18 cm); Pain 8/10; 19:15 BP 144 / 80; Pulse 76; Resp 18; Pulse Ox 100% on R/A; lp1 20:04 BP 142 / 82; Pulse 85; Resp 18; Pulse Ox 98% on R/A; Pain 8/10; lp1 21:21 BP 91 / 67; Pulse 63; Resp 16; Pulse Ox 100% on R/A; Pain 5/10; lp1 17:30 Body Mass Index 23.49 (68.04 kg, 170.18 cm) bm7 MDM: 17:38 Patient medically screened. kb 18:29 Data reviewed: vital signs, nurses notes. Data interpreted: Pulse oximetry: on room air kb is 100 %. Interpretation: normal. 19:55 Counseling: I had a detailed discussion with the patient and/or guardian regarding: the kb historical points, exam findings, and any diagnostic results supporting the discharge/admit diagnosis, lab results, radiology results, the need for outpatient follow up, a family practitioner, to return to the emergency department if symptoms worsen or persist or if there are any questions or concerns that arise at home. 09/30 17:39 Order name: CBC with Diff; Complete Time: 18:28 kb 09/30 17:39 Order name: CMP; Complete Time: 18:47 kb 09/30 17:39 Order name: Lipase; Complete Time: 18:47 kb 09/30 17:39 Order name: Urine Microscopic Only; Complete Time: 20:40 kb 09/30 20:11 Order name: Urine Dipstick-Ancillary; Complete Time: 20:13 EDMS 09/30 20:14 Order name: Urine --Ancillary (enter results); Complete Time: 21:01 ds4 09/30 17:39 Order name: CT Abd/Pelvis - IV Contrast Only; Complete Time: 19:44 kb 09/30 20:41 Order name: Urine Culture EDMS 09/30 17:39 Order name: IV Saline Lock; Complete Time: 18:39 kb 09/30 17:39 Order name: Labs collected and sent; Complete Time: 18:39 kb 09/30 17:39 Order name: Urine Dipstick-Ancillary (obtain specimen); Complete Time: 20:14 kb Administered Medications: 18:20 Drug: Zofran (Ondansetron) 4 mg Route: IVP; Site: left antecubital; ld1 18:20 Drug: morphine 4 mg Route: IVP; Infused Over: 4 mins; Site: left antecubital; ld1 18:25 Drug: NS 0.9% 1000 ml Route: IV; Rate: 1 bolus; Site: left antecubital; ld1 20:10 Drug: Phenergan (promethazine) 6.25 mg Route: IVP; Site: left antecubital; jb4 21:21 Follow up: Response: No adverse reaction lp1 20:13 Drug: Dilaudid (HYDROmorphone) 1 mg Route: IVP; Site: left antecubital; jb4 21:21 Follow up: Response: Pain is decreased lp1 20:16 Drug: Magnesium Sulfate 1 grams Route: IVPB; Infused Over: 1 hrs; Site: left jb4 antecubital; 21:21 Follow up: IV Status: Completed infusion; IV Intake: 50ml lp1 20:16 Drug: Flomax (tamsulosin) 0.4 mg Route: PO; jb4 21:21 Follow up: Response: No adverse reaction lp1 21:43 Drug: Dilaudid (HYDROmorphone) 0.5 mg {Note: Verbal order per Jenny Beckford NP.} Route: lp1 IM; Site: right gluteus; 21:43 Follow up: Response: Medication administered at discharge. lp1 Disposition Summary: 09/30/21 21:01 Discharge Ordered Location: Home kb Condition: Stable kb Diagnosis - Calculus of kidney with calculus of ureter kb Followup: kb - With: Emergency Department - When: As needed - Reason: Worsening of condition Followup: kb - With: Private Physician - When: 2 - 3 days - Reason: Recheck today's complaints, Continuance of care, Re-evaluation by your physician Discharge Instructions: - Discharge Summary Sheet kb - Kidney Stones, [id number] kb - Dietary Guidelines to Help Prevent Kidney Stones kb Forms: - Medication Reconciliation Form kb - Thank You Letter kb - Antibiotic Education kb - Prescription Opioid Use kb Prescriptions: - Flomax 0.4 mg Oral capsule - take 1 capsule by ORAL route once daily 1/2 hour following the same meal each kb day; 10 capsule; Refills: 0, Product Selection Permitted - Diclofenac Sodium 75 mg Oral tablet,delayed release (DR/EC) - take 1 tablet by ORAL route 2 times per day As needed; 30 tablet; Refills: 0, kb Product Selection Permitted Signatures: Dispatcher [employer] EDMS Aruna Beckford, HOSPITAL CLEANING SPECIALIST-C HOSPITAL CLEANING SPECIALIST-Ngozi Alvarado, RN RN lp1 Sergio Recinos RN RN jb4 Sydnee Talbot, RN RN bm7 Kimberlee Winkler, RN RN ld1 Corrections: (The following items were deleted from the chart) 18:39 18:30 Associated signs and symptoms: Pertinent positives: dysuria, nausea, vomiting, [facility] 18:39 18:31 Pt reports bilateral flank pain, mild dysuria, nausea and vomiting. States he had kb this a few months ago and it was a kidney infection. . 18:42 18:29 : Positive for flank pain, burning with urination, [facility] 18:53 18:30 Onset: The symptoms/episode began/occurred yesterday, [facility]
--- NOTE | 2021-09-30 21:02 | ER ---
Nurse's Notes [facility] Name: Mckenna Avila Age: 46 yrs Sex: Female : 1975 Arrival Date: 09/30/2021 Time: 17:23 Bed 3 Private MD: Roman Fallon T Diagnosis: Calculus of kidney with calculus of ureter Presentation: 09/30 17:29 Chief complaint: Patient states: I have had a kidney infection since July and I can not bm7 get rid or it and I get septic really fast to I want to make sure I dont get sepsis. Coronavirus screen: At this time, the client does not indicate any symptoms associated with coronavirus-19. Ebola Screen: No symptoms or risks identified at this time. Initial Sepsis Screen: Does the patient meet any 2 criteria? No. Patient's initial sepsis screen is negative. Does the patient have a suspected source of infection? Yes: Dysuria/Frequency/Urgency/UTI. Risk Assessment: Do you want to hurt yourself or someone else? Patient reports no desire to harm self or others. Onset of symptoms is unknown. 17:29 Method Of Arrival: Ambulatory 7 17:29 Acuity: KEIKO 3 bm7 Triage Assessment: 17:30 General: Appears in no apparent distress. uncomfortable, Behavior is calm, cooperative, bm7 appropriate for age. Pain: Complains of pain in left low back and right low back Pain radiates to abdomen. EENT: No deficits noted. No signs and/or symptoms were reported regarding the EENT system. Neuro: No deficits noted. Cardiovascular: No deficits noted. Respiratory: No deficits noted. GI: Reports cramping, intolerance of fluids, intolerance of food, nausea, vomiting. : Reports pain in bilateral flank(s), Denies burning with urination, inability to void. Derm: No deficits noted. No signs and/or symptoms reported regarding the dermatologic system. Musculoskeletal: No deficits noted. No signs and/or symptoms reported regarding the musculoskeletal system. 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 - Social history:: Smoking status: Patient/guardian denies using alcohol, tobacco products. Screenin:21 Abuse screen: Denies threats or abuse. Denies injuries from another. Nutritional lp1 screening: No deficits noted. Tuberculosis screening: No symptoms or risk factors identified. 21:03 Fall Risk None identified. lp1 Assessment: 19:20 Reassessment: Patient to CT via stretcher. lp1 19:45 Reassessment: Patient ambulating to bathroom to provide urine specimen;. General: lp1 Appears in no apparent distress. Pain: Complains of pain in left low back and right low back Pain currently is 8 out of 10 on a pain scale. Neuro: Level of Consciousness is awake, alert, obeys commands, Gait is steady. Cardiovascular: Patient's skin is warm and dry. Respiratory: Respiratory effort is even, unlabored. GI: Abdomen is non-distended. : Denies burning with urination. EENT: No signs and/or symptoms were reported regarding the EENT system. Derm: Skin is pink, warm \\T\\ dry. Musculoskeletal: No deficits noted. 21:19 Reassessment: Patient is alert, oriented x 3, equal unlabored respirations, skin lp1 warm/dry/pink. Patient states feeling better. Reassessment: requesting pain medication prior to discharge, "just something to get me through the night"; Provider notified. Pain: Pain currently is 5 out of 10 on a pain scale. Vital Signs: 17:30 BP 136 / 102; Pulse 82; Resp 16; Temp 97.4(TE); Pulse Ox 100% on R/A; Weight 68.04 kg bm7 (R); Height 5 ft. 7 in. (170.18 cm); Pain 8/10; 19:15 BP 144 / 80; Pulse 76; Resp 18; Pulse Ox 100% on R/A; lp1 20:04 BP 142 / 82; Pulse 85; Resp 18; Pulse Ox 98% on R/A; Pain 8/10; lp1 21:21 BP 91 / 67; Pulse 63; Resp 16; Pulse Ox 100% on R/A; Pain 5/10; lp1 17:30 Body Mass Index 23.49 (68.04 kg, 170.18 cm) bm7 ED Course: 17:23 Patient arrived in ED. am2 17:24 Roman Fallon MD is Private Physician. am2 17:27 [facility]C [facility] kb 17:27 Andrés Bishop MD is Attending Physician. kb 17:30 Triage completed. bm7 17:30 Arm band placed on left wrist. bm7 17:41 Shi Shearer, RN is Primary Nurse. eh3 18:24 Accessed peripheral vein via ultrasound, utilizing dynamic ultrasound technique Clean \\T\\ jd3 dry. Dressing intact. Good blood return. Flushes easily. 20 G left AC. 19:20 Patient has correct armband on for positive identification. lp1 19:30 CT Abd/Pelvis - IV Contrast Only In Process Unspecified. EDMS 21:03 No provider procedures requiring assistance completed. lp1 21:43 IV discontinued, No redness/swelling at site. Pressure dressing applied. lp1 Administered Medications: 18:20 Drug: Zofran (Ondansetron) 4 mg Route: IVP; Site: left antecubital; ld1 18:20 Drug: morphine 4 mg Route: IVP; Infused Over: 4 mins; Site: left antecubital; ld1 18:25 Drug: NS 0.9% 1000 ml Route: IV; Rate: 1 bolus; Site: left antecubital; ld1 20:10 Drug: Phenergan (promethazine) 6.25 mg Route: IVP; Site: left antecubital; jb4 21:21 Follow up: Response: No adverse reaction lp1 20:13 Drug: Dilaudid (HYDROmorphone) 1 mg Route: IVP; Site: left antecubital; jb4 21:21 Follow up: Response: Pain is decreased lp1 20:16 Drug: Magnesium Sulfate 1 grams Route: IVPB; Infused Over: 1 hrs; Site: left jb4 antecubital; 21:21 Follow up: IV Status: Completed infusion; IV Intake: 50ml lp1 20:16 Drug: Flomax (tamsulosin) 0.4 mg Route: PO; jb4 21:21 Follow up: Response: No adverse reaction lp1 21:43 Drug: Dilaudid (HYDROmorphone) 0.5 mg {Note: Verbal order per Jenny Beckford NP.} Route: lp1 IM; Site: right gluteus; 21:43 Follow up: Response: Medication administered at discharge. lp1 Medication: 19:21 VIS not applicable for this client. lp1 Intake: 21:21 IV: 50ml; Total: 50ml. lp1 Outcome: 21:01 Discharge ordered by . joyce 21:43 Discharged to home ambulatory, with friend. lp1 21:43 Condition: good 21:43 Discharge instructions given to patient, Instructed on discharge instructions, follow up and referral plans. medication usage, Demonstrated understanding of instructions, follow-up care, medications, Prescriptions given X 2. 21:44 Patient left the ED. lp1 Signatures: Dispatcher [employer] EDMS Aruna Beckford, HIGHWALL DRILL OPERATOR-C HIGHWALL DRILL OPERATOR-CkNgozi Braun, RN RN lp1 Sergio Recinos, RN RN jb4 Shireen Cummins Jonathon RN RN jd3 Sydnee Talbot, RN RN bm7 Kimberlee Winkler RN RN ld1 Shi Shearer, RN RN eh3 Corrections: (The following items were deleted from the chart) 20:15 19:45 : Reports burning with urination, lp1 lp1
[2021-09-30] MEDS ORDERED: HYDROMORPHONE HCL 0.5 MG/0.5 ML INJ ONE (21:46)
[2021-09-30 23:22] VITALS: TEMP 97.4
[2021-09-30 23:34] VITALS: BP 91/67; O2SAT 100
== END 2021-09-30 21:44 | disposition home or self-care (01) ==
LOC: ER 17:22
DX: N20.2 Calculus of kidney with calculus of ureter (principal); Z87.442 Personal history of urinary calculi; Z88.1 Allergy status to other antibiotic agents
CPT/HCPCS: 96365; 87088; 85025; 87086; 36415; 81025; 83690; 80053; 74177; 96375; 96372; 99284; Q9967; J2550; J3475; J1170 ×2; J7030; J2405; 81003; 81015

== ENCOUNTER 2021-10-18 06:30 | Day surgery (SDC) | payer BC ==
[2021-10-14 11:55] LABS: SARS-CoV-2 Antigen Rapid Res Negative (Negative)
--- NOTE | 2021-10-14 13:57 | EKG ---
Test Date: 2021-10-14 Test Time: 10:57:04 Teletype Telegrapher: PENNY MEASUREMENT RESULTS: Intervals: Rate: 70 IL: 142 QRSD: 84 QT: 392 QTc: 423 [place]: P: 36 IL: 142 QRS: 9 T: 38 INTERPRETIVE STATEMENTS: Normal sinus rhythm Minimal voltage criteria for LVH, may be normal variant Borderline ECG Compared to ECG 12/30/2020 20:50:43 Sinus tachycardia no longer present ST (T wave) deviation no longer present Electronically Signed On 10-14-21 13:57:24 CDT by Judah Nick
[2021-10-18] MEDS ORDERED: Ringers Lactate 1,000 ML IV ONE (07:00)
[2021-10-18] MEDS ORDERED: MIDAZOLAM HCL 2 MG/2 ML INJ ONE (07:21)
[2021-10-18] MEDS ORDERED: FENTANYL CITR 100 MCG/2 ML ONE (07:21)
[2021-10-18] MEDS ORDERED: propofoL 200 MG/20 ML VIAL IV ONE (07:21)
[2021-10-18] MEDS ORDERED: LIDOCAINE 1% MPF 5 ML VIAL ONE (07:22)
[2021-10-18] MEDS ORDERED: ACETAMINOPHEN 500 MG TAB ONE (07:40)
[2021-10-18] MEDS ORDERED: HYDROCORTISONE SUC 100 MG INJ ONE (07:40)
[2021-10-18] MEDS ORDERED: CELECOXIB 100 MG CAPSULE ONE (07:40)
[2021-10-18] MEDS ORDERED: PHENAZOPYRIDINE 100MG TAB PO ONE ×2 (07:41→10:34)
[2021-10-18] MEDS ORDERED: HYDROCODONE/APAP 5/325 MG TAB PO PRN (07:41)
[2021-10-18] MEDS ORDERED: Gentamicin Inj 160 MG in NA CHLORIDE 0.9% 100 ML IV ONE (08:00)
[2021-10-18] MEDS ORDERED: CLINDAMYCIN 600MG/D5W 600 MG/50 ML BAG IV ONE (08:00)
[2021-10-18] MEDS ORDERED: dexAMETHasone 10 MG/ML VIAL ONE (08:10)
[2021-10-18] MEDS ORDERED: KETOROLAC 30 MG/ML INJ ONE (08:11)
[2021-10-18] MEDS ORDERED: ONDANSETRON 4 MG/2 ML VIAL ONE (08:12)
[2021-10-18] MEDS ORDERED: Mastisol Adhesive Liq ONE (08:45)
--- NOTE | 2021-10-18 08:59 | RAD REPORT ---
EXAM DESCRIPTION: RAD - Urethrocystogrphy Retrograde - 10/18/2021 8:48 am FINDINGS: There were 15 portable KUB images obtained during fluoroscopic assisted placement of a lef t ureteral stent. Fluoro time was 15 seconds. Cumulative dose was 5.6 mGy.
[2021-10-18] MEDS ORDERED: MEPERIDINE HCL 25 MG/ML SYR ONE (09:00)
[2021-10-18] MEDS: HYDROMORPHONE HCL 1 MG/ML INJ ONE ×2 (09:15→09:23)
[2021-10-18] MEDS ORDERED: METOCLOPRAMIDE 10 MG/2mL INJ ONE (09:24)
--- NOTE | 2021-10-18 10:15 | OP ---
Surgeon: CONNIE GIRALDO Preoperative Diagnoses: 1.Gross hematuria. 2.Left nephroureterolithiasis. 3.History of deep vein thrombosis, on Xarelto. 4.Rheumatoid arthritis, on prednisone and other immunosuppressants. 5.Recurrent urinary tract infections. Postoperative Diagnoses: 1.Gross hematuria. 2.Left nephroureterolithiasis. 3.History of deep vein thrombosis, on Xarelto. 4.Rheumatoid arthritis, on prednisone and other immunosuppressants. 5.Recurrent urinary tract infections. Principal Procedures: 1.Cystoscopy. 2.Left ureteroscopy. 3.Left pyeloscopy. 4.Laser lithotripsy of intrarenal calculi. 5.Left ureteral stent placement. Indication For Procedure: Ms. Avila is a 46-year-old female with history of DVT in her bilateral low er extremities, Xarelto, who also has rheumatoid arthritis, on prednisone as well as Remicade and Imu ran, as well as methotrexate induced lung disease who also has Crohn disease and the presence of neph roureterolithiasis with a 5 mm distal left ureterolithiasis and less than 3 mm nephrolithiasis. She had some gross hematuria, which prompted the evaluation as well as recurrent complicated urinary trac t infections. As a result, she presents for definitive evaluation cystoscopically as well as managem ent of her stones. Procedure In Detail: The patient was consented in the preoperative holding area before being transfe rred to the operative suite where general anesthesia was induced. She was given gentamicin and clind amycin IV antimicrobial prophylaxis and pneumo boots were provided for DVT prophylaxis. She was plac ed in the lithotomy position, padded and secured to the table appropriately. Her genitalia were prep ped using Hibiclens and she was draped in standard fashion. The case was begun using the 22-Panamanian c ystoscope to traverse the urethra and into the bladder with ease. The bladder was surveyed in its en tirety, and there were no mucosal lesions, foreign bodies, or stones. The ureteral orifices were ort hotopic in location, and the left ureteral orifice was cannulated with the tip of a 5-Panamanian ureteral access catheter and a retrograde pyelogram was performed. Left retrograde pyelography: Using a 70:30 mixture of Omnipaque and saline, contrast was injected via the 5-Panamanian ureteral access catheter and did propagate up distal into the mid and proximal ureter without any evidence of obstru ction noted. There was no caliectasis or pelviectasis noted and the ureter was nice and thin without evidence of ureteronephrosis. As a result, given the absence of evident obstruction on retrograde p yelogram, but knowing she had the presence of stones in the kidney as well as recurrent complicated u rinary tract infections, I passed a Bentson guidewire via the 5-Panamanian ureteral access catheter coili ng within the upper pole of the kidney. Alongside the Bentson guidewire, I performed direct vision s sayra-rigid ureteroscopy into the mid proximal ureter. No ureteral obstructing calculus was observed. As a result, I passed a Sensor wire via the ureteroscope under direct vision into the renal pelvis. I then removed the semi-rigid ureteroscope and passed a dual-lumen catheter into the mid proximal ur eter to dilate it. I then was able to navigate the flexible ureteroscope over the Bentson guidewire into the collecting system as observed fluoroscopically. I then surveyed each of the calices and enc ountered several Rich plaques, which were managed using the laser when the stone was . Ad ditionally within the lower pole posterior calices, an additional 2 calculi were noted as it had been previously observed on CT. These were fragmented using the 200 nm laser fiber and power setting of 0.8 joules and between 15 and 20 hertz. Once each of the calices had been surveyed and all stones di srupted, I then surveyed into the renal pelvis down into the proximal, mid, and distal ureter on the way out. No additional stones were noted; so I discontinued ureteroscopy. I then back-loaded the cy stoscope over the indwelling safety wire and passed a 6-Panamanian x 24 cm double-J stent into the [facility] ting system with a coil observed fluoroscopically. An additional coil was formed cystoscopically wit hin the bladder, and the stent was left on its tether. The tether was secured to her introitus using Mastisol and Steri-Strips after I decompressed her bladder of fluid and urine. She was then taken o ut of the lithotomy position, awakened from general anesthesia, transferred to a stretcher, and then transferred to the recovery room in good condition. Complications: None. Discharge Disposition: She may come by the clinic to have the left ureteral stent removed as it is o n its tether, on of this week. I will discharge her with a few days of antimicrobial and sh e may plan to resume the Xarelto tomorrow if the urine is clear or on . TAHMINA/MODL Voice ID: [id number] Report ID: [id number]
[2021-10-18] MEDS ORDERED: HYDROCODONE/APAP 5/325 MG TAB ONE (10:34)
[2021-10-18 11:05] VITALS: BP 160/89; TEMP 97; O2SAT 99
== END 2021-10-18 10:40 | disposition home or self-care (01) ==
LOC: OR 06:30
PROVIDERS: ATTEND Urology
PROC: 0TF78ZZ Fragmentation in Left Ureter, Via Natural or Artificial Opening Endoscopic (ICD-10-PCS; 2021-10-18)
PROC: 0T778DZ Dilation of Left Ureter with Intraluminal Device, Via Natural or Artificial Opening Endoscopic (ICD-10-PCS; 2021-10-18)
PROC: 0TF48ZZ Fragmentation in Left Kidney Pelvis, Via Natural or Artificial Opening Endoscopic (ICD-10-PCS; principal; 2021-10-18 07:30)
DX: N20.2 Calculus of kidney with calculus of ureter (principal); R39.9 Unspecified symptoms and signs involving the genitourinary system; R31.0 Gross hematuria; N39.0 Urinary tract infection, site not specified; J98.4 Other disorders of lung; K50.919 Crohn's disease, unspecified, with unspecified complications; Z86.718 Personal history of other venous thrombosis and embolism; Z20.822 Contact with and (suspected) exposure to COVID-19; Z87.440 Personal history of urinary (tract) infections
CPT/HCPCS: 36415; 51610; 74450; 87086; 87088; 87811; 93005; J1100; J1170; J1580; J1720; J2001; J2175; J2250; J2405; J2704; J2765; J3010; J7120

== ENCOUNTER 2021-10-21 16:39 | Emergency (ER) | payer BC ==
--- OUTSIDE RECORDS SUMMARY | 2021-10-21 16:59 | XMS REPORT | Continuity of Care Document ---
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 12/05/20 at 1630, STAT ondansetron 2020-02 Yes 4mg 4 mg, Slow Univers (ZOFRAN 0-24 IV Push, ity of (PF)) 21:29: Q6HPRN, [place] injection 4 30 Starting Medi bernadine mg on [facility] 12/05/20 at 1629, Until Discontinu ed, Routine, Nausea and Vomiting (N/V) acetaminoph 2020-02 Yes 650mg 650 mg, Un matt en 0-24 Oral, ity of (TYLENOL) 21:29: Q6HPRN, [place] tablet 650 19 Starting Medic al mg on [facility] 12/05/20 at 1629, Until Discontinu ed, Routine, Pain (scale 1-3), Temp > 38.5 C dicyclomine 2020-02- No 20mg Take 20 mg Univers 20 mg 0-24 10-24 by mouth 3 ity of tablet 21:23: 00:00 (three) [place] 29 :00 times Medical daily. Branch erenumab-ao 2020-02- No inject Uni vers oe (AIMOVIG 0-24 10-24 under the it y of AUTOINJECTO 21:23: 00:00 skin. [place] R) 140 29 :00 Medical mg/mL AtIn [place] hydrocortis 2020-02- No 100mg 100 mg, IV Univers one sod 0-24 10-24 Push, ity of succ 21:00: 20:23 ONCE, 1 [place] (CORTEF) 00 :00 dose, On Medical injection [facility] 100 mg 12/05/20 at 1600, Routine NaCl [...] 2 [place] 00 :00 (two) Medical times [place] daily. sulfamethox 2020-02- No 1{tbl} Take 1 U nivers azole-trime 0-20 10-31 tablet by it y of oprim 00:00: 00:00 mouth 2 [place] 400-80 mg 00 :00 (two) Medical per tablet times Branch daily. AIMOVIG Yes 140mg INJECT 140 Uni vers AUTOINJECTO 8-31 MG UNDER ity of R 140 mg/mL 00:00: THE SKIN [place] AtIn 00 ONCE EVERY Medical MONTH. Branch AIMOVIG Yes 140mg INJECT 140 Uni vers AUTOINJECTO 8-31 MG UNDER ity of R 140 mg/mL 00:00: THE SKIN [place] AtIn 00 ONCE EVERY Medical MONTH. Branch AIMOVIG Yes 140mg INJECT 140 Uni vers AUTOINJECTO 8-31 MG UNDER ity of R 140 mg/mL 00:00: THE SKIN [place] AtIn 00 ONCE EVERY Medical MONTH. [place] AIMOVIG Yes 140mg INJECT 140 Uni vers AUTOINJECTO 8-31 MG UNDER ity of R 140 mg/mL 00:00: THE SKIN [place] AtIn 00 ONCE EVERY Medical MONTH. [place] AIMOVIG Yes 140mg INJECT 140 Uni vers AUTOINJECTO 8-31 MG UNDER ity of R 140 mg/mL 00:00: THE SKIN [place] AtIn 00 ONCE EVERY Medical MONTH. Branch AIMOVIG Yes 140mg INJECT 140 Uni vers AUTOINJECTO 8-31 MG UNDER ity of R 140 mg/mL 00:00: THE SKIN [place] AtIn 00 ONCE EVERY Medical MONTH. [place] AIMOVIG Yes 140mg INJECT 140 Uni vers AUTOINJECTO 8-31 MG UNDER ity of R 140 mg/mL 00:00: THE SKIN [place] AtIn 00 ONCE EVERY Medical MONTH. Branch AIMOVIG Yes 140mg INJECT 140 Uni vers AUTOINJECTO 8-31 MG UNDER ity of R 140 mg/mL 00:00: THE SKIN [place] AtIn 00 ONCE EVERY Medical MONTH. [place] magnesium Yes 400mg 400 mg, Univ ers oxide 07-15 Oral, ity of (MAG-OX 14:00: DAILY, [place] 400) tablet 00 First dose Me dical 400 mg on [place] [facility] 07/15/20 at 0900, Until Discontinu ed, Routine busPIRone 2020-0 Yes 20mg 20 mg, Univer s (BUSPAR) 6-03 Oral, BID, ity o f tablet 20 01:00: First dose [place] mg 00 on [facility] 07/14/20 at [place] 2000, Until Discontinu ed, Routine magnesium 2020-0 Yes [id number] 400mg Take 400 Univers oxide 420 6-03 mg by ity of mg Tab 00:00: mouth [place] 00 daily. [facility] magnesium 2020-0 Yes [id number] 400mg Take 400 Univers oxide 420 6-03 mg by ity of mg Tab 00:00: mouth [place] 00 daily. [facility] magnesium 2020-0 Yes [id number] 400mg Take 400 Univers oxide 420 6-03 mg by ity of mg Tab 00:00: mouth [place] 00 daily. [facility] magnesium 2020-0 Yes [id number] 400mg Take 400 Univers oxide 420 6-03 mg by ity of mg Tab 00:00: mouth [place] 00 daily. [facility] magnesium 2020-0 Yes [id number] 400mg Take 400 Univers oxide 420 6-03 mg by ity of mg Tab 00:00: mouth [place] 00 daily. [facility] magnesium 2020-0 Yes [id number] 400mg Take 400 Univers oxide 420 6-03 mg by ity of mg Tab 00:00: mouth [place] 00 daily. [facility] magnesium 2020-0 Yes [id number] 400mg Take 400 Univers oxide 420 6-03 mg by ity of mg Tab 00:00: mouth [place] 00 daily. [facility] magnesium 2020-0 Yes [id number] 400mg Take 400 Univers oxide 420 6-03 mg by ity of mg Tab 00:00: mouth [place] 00 daily. [facility] magnesium 2020-0 Yes [id number] 400mg Take 400 Univers oxide 420 6-03 mg by ity of mg Tab 00:00: mouth [place] 00 daily. [facility] magnesium 2020-0 Yes [id number] 400mg Take 400 Univers oxide 420 6-03 mg by ity of mg Tab 00:00: mouth [place] 00 daily. [facility] magnesium 2020-0 Yes [id number] 400mg Take 400 Univers oxide 420 6-03 mg by ity of mg Tab 00:00: mouth [place] 00 daily. [facility] magnesium 2020-0 Yes [id number] 400mg Take 400 Univers oxide 420 6-03 mg by ity of mg Tab 00:00: mouth [place] 00 daily. Medical Branch magnesium 2020-0 Yes [id number] 400mg Take 400 Univers oxide 420 6-03 mg by ity of mg Tab 00:00: mouth [place] 00 daily. Medical Branch magnesium 2020-0 Yes [id number] 400mg Take 400 Univers oxide 420 6-03 mg by ity of mg Tab 00:00: mouth [place] 00 daily. Medical Branch magnesium 2020-0 2021- No [id number] 400mg Take 400 Univers oxide 420 6-03 10-24 mg by ity of mg Tab 00:00: 00:00 mouth [place] 00 :00 daily. Medical Branch inFLIXimab 0 Yes 840mg Inject [...] 23:15: daily. [place] ORAL) 16 Medical Branch LORazepam Yes 2mg 2 mg, Univers [...] ed, Routine, Nausea and Vomiting (N/V) metoclopram 2020-0 Yes 10mg 10 mg, Univ ers marilyn [...] Last dose on Sun07/15/20 at 0600, Routine
[employer] member approving Restricted medication : CHRISTINA ROQUE [...] Oral, ity of XL (TOPROL 14:00: DAILY, [place] XL) tablet 00 First dose Med ical [...] dose, Sun Branch 07/14/20 at 0615, Routine
[employer] member approving Restricted medication : JEANETTENADIACHRISTINA magnesium 2020- No 2g 2 g, IV Univ ers sulfate in 07-14 Piggyback, it y of water 2 11:15: 15:20 ONCE, 1 [place] gram/50 mL 00 :00 dose, Sun Medi bernadine (4 %) 07/14/20 at Branch infusion 2 0615, g Routine NaCl 0.9% Yes 1000mL at 50 Unive rs (NS) IV 07-14 mL/hr, IV ity of infusion 10:15: Infusion, [place] 1,000 mL 00 CONTINUOUS Medic al , Starting Branch [facility] 07/14/20 at 0515, Until Discontinu ed, Routine acetaminoph Yes 650mg 650 mg, Un matt en 07-14 Oral, ity of (TYLENOL) 10:11: Q6HPRN, [place] tablet 650 51 Starting Medic al mg 07/14/20 Branch at 0511, Until Discontinu ed, Routine, Pain (scale 4-6) docusate Yes 100mg 100 mg, Unive rs (COLACE) 07-14 Oral, ity of capsule 100 10:11: QDAILYPRN, [place] mg 50 Starting Medical 07/14/20 Branch at 0511, Until Discontinu ed, Routine, Constipati on diphenhydrA 2020- No 25mg 25 mg, Uni vers MINE 07-14 Slow IV ity of (BENADRYL) 01:00: 09:39 Push, [place] injection 00 :00 ONCE, 1 Medical 25 mg dose, [facility] 07/13/20 at 1999, STAT metoclopram 2020- No 10mg 10 mg, Uni vers marilyn HCl 07-14 Slow IV ity of (REGLAN) 01:00: 09:39 Push, [place] injection 00 :00 ONCE, 1 Medical 10 mg dose, [facility] 07/13/20 at 1999, GIGI amitriptyli Yes [id number] 25mg Take 1 Univers ne 25 mg 6-02 tablet by ity of tablet 00:00: mouth at [place] 00 bedtime. Medical Branch riboflavin, Yes [id number] 400mg Take 400 Univers vitamin B2, 6-02 mg by ity of 400 mg Tab 00:00: mouth [place] 00 daily. Medical Branch amitriptyli Yes [id number] 25mg Take 1 Univers ne 25 mg 6-02 tablet by ity of tablet 00:00: mouth at [place] 00 bedtime. Medical Branch riboflavin, Yes [id number] 400mg Take 400 Univers vitamin B2, 6-02 mg by ity of 400 mg Tab 00:00: mouth [place] 00 daily. Medical Branch amitriptyli Yes [id number] 25mg Take 1 Univers ne 25 mg 6-02 tablet by ity of tablet 00:00: mouth at [place] 00 bedtime. Medical Branch riboflavin, Yes [id number] 400mg Take 400 Univers vitamin B2, 6-02 mg by ity of 400 mg Tab 00:00: mouth [place] 00 daily. Medical Branch amitriptyli Yes [id number] 25mg Take 1 Univers ne 25 mg 6-02 tablet by ity of tablet 00:00: mouth at [place] [address] bedtime. Medical Branch riboflavin, Yes [id number] 400mg Take 400 Univers vitamin B2, 6-02 mg by ity of 400 mg Tab 00:00: mouth [place] 00 daily. Medical Branch amitriptyli Yes [id number] 25mg Take 1 [facility] ne 25 mg 6-02 tablet by ity of tablet 00:00: mouth at [place] bedtime. Medical Branch riboflavin, Yes [id number] 400mg Take 400 Univers vitamin B2, 6-02 mg by ity of 400 mg Tab 00:00: mouth [place] 00 daily. Medical Branch amitriptyli Yes [id number] 25mg Take 1 [facility] ne 25 mg 6-02 tablet by ity of tablet 00:00: mouth at [place] bedtime. Medical Branch riboflavin, Yes [id number] 400mg Take 400 Univers vitamin B2, 6-02 mg by ity of 400 mg Tab 00:00: mouth 00 daily. Medical Branch amitriptyli Yes [id number] 25mg Take 1 Univers ne 25 mg 6-02 tablet by ity of tablet 00:00: mouth at [place] bedtime. Medical Branch riboflavin, Yes [id number] 400mg Take 400 Univers vitamin B2, 6-02 mg by ity of 400 mg Tab 00:00: mouth daily. Medical Branch amitriptyli Yes [id number] 25mg Take 1 Univers ne 25 mg 6-02 tablet by ity of tablet 00:00: mouth at [place] bedtime. Medical Branch riboflavin, Yes [id number] 400mg Take 400 Univers vitamin B2, 6-02 mg by ity of 400 mg Tab 00:00: mouth daily. Medical Branch amitriptyli Yes [id number] 25mg Take 1 [facility] ne 25 mg 6-02 tablet by ity of tablet 00:00: mouth at [place] bedtime. Medical Branch riboflavin, Yes [id number] 400mg Take 400 Univers vitamin B2, 6-02 mg by ity of 400 mg Tab 00:00: mouth 00 daily. Medical Branch amitriptyli Yes [id number] 25mg Take 1 Univers ne 25 mg 6-02 tablet by ity of tablet 00:00: mouth at [place] bedtime. Medical Branch riboflavin, Yes [id number] 400mg Take 400 Univers vitamin B2, 6-02 mg by ity of 400 mg Tab 00:00: mouth [place] 00 daily. Medical Branch amitriptyli Yes [id number] 25mg Take 1 [facility] ne 25 mg 6-02 tablet by ity of tablet 00:00: mouth at [place] 00 bedtime. Medical Branch riboflavin, Yes [id number] 400mg Take 400 Univers vitamin B2, 6-02 mg by ity of 400 mg Tab 00:00: mouth [place] 00 daily. Medical Branch amitriptyli Yes [id number] 25mg Take 1 Univers ne 25 mg 6-02 tablet by ity of tablet 00:00: mouth at [place] 00 bedtime. Medical Branch riboflavin, Yes [id number] 400mg Take 400 Univers vitamin B2, 6-02 mg by ity of 400 mg Tab 00:00: mouth [place] 00 daily. Medical Branch amitriptyli Yes [id number] 25mg Take 1 Univers ne 25 mg 6-02 tablet by ity of tablet 00:00: mouth at [place] 00 bedtime. Medical Branch riboflavin, Yes [id number] 400mg Take 400 [facility] vitamin B2, 6-02 mg by ity of 400 mg Tab 00:00: mouth [place] 00 daily. Medical Branch amitriptyli Yes [id number] 25mg Take 1 [facility] ne 25 mg 6-02 tablet by ity of tablet 00:00: mouth at [place] 00 bedtime. Medical Branch riboflavin, Yes [id number] 400mg Take 400 Univers vitamin B2, 6-02 mg by ity of 400 mg Tab 00:00: mouth [place] 00 daily. Medical Branch amitriptyli 2020- No [id number] 25mg Take 1 Univers ne 25 mg 6-02 10-24 tablet by ity o f tablet 00:00: 00:00 mouth at [place] 00 :00 bedtime. Medical Branch riboflavin, 2020- No [id number] 400mg Take 400 Univers vitamin B2, 6-02 10-24 mg by ity of 400 mg Tab 00:00: 00:00 mouth [place] 00 :00 daily. Medical Branch metoprolol 2020- No 5mg 5 mg, Slow Univers (LOPRESSOR) 5-26 05-26 IV Push, ity of injection 5 04:15: 03:20 ONCE, 1 [place] mg 00 :00 dose, [facility] Medical 07/06/20 at Branch 2315, GIGI ondansetron 2020-0 2020- No 4mg 4 mg, Slow Univers (ZOFRAN 07-07 IV Push, ity of (PF)) 04:15: 03:20 ONCE, 1 [place] injection 4 00 :00 dose, Tue Med ical mg 07/06/20 at Branch 2315, GIGI morpHINE 2020-0 2020- No 4mg 4 mg, Slow Un matt injection 4 07-07 IV Push, ity of mg 04:15: 03:20 ONCE, 1 [place] 00 :00 dose, [facility] Medical 07/06/20 at Branch 2315, STAT LORazepam 2020-2020- No 2mg 2 mg, Univer s (ATIVAN) 07-07 Intramuscu ity of injection 2 03:30: 02:26 lar, ONCE, [place] mg 00 :00 1 dose, Medical [facility] 07/06/20 at 2230, STAT cloNIDine 2020-0 2020- No .2mg 0.2 mg, Univ ers (CATAPRES) 07-07 Oral, ity of tablet 0.2 03:00: 01:58 ONCE, 1 [place] mg 00 :00 dose, [facility] 07/06/20 at Branch 2200, STAT ondansetron 2020-0 2020- No 4mg 4 mg, Univ ers (ZOFRAN-ODT 07-07 Oral, ity of ) 02:00: 01:10 ONCE, 1 [place] disintegrat 00 :00 dose, [facility] Med ical ing tablet 07/06/20 at [facility] 4 mg 2100, Routine butorphanol 2020-2020- No 2mg 2 mg, Univ ers (STADOL) 07-07 Intramuscu ity of injection 2 02:00: 01:10 lar, ONCE [place] mg 00 :00 NOW, 1 Medical dose, [facility] 07/06/20 at 2100, Routine ondansetron 2020-0 Yes [id number] 4mg Take 1 Univers (ZOFRAN) 4 5-25 tablet by ity of mg tablet 00:00: mouth [place] 00 every 8 Medical (eight) Branch hours as needed for Nausea and Vomiting (N/V). ondansetron 1-0 Yes [id number] 4mg Take 1 Univers (ZOFRAN) 4 5-25 tablet by ity of mg tablet 00:00: mouth [place] 00 every 8 Medical (eight) Branch hours as needed for Nausea and Vomiting (N/V). ondansetron 2020-0 Yes [id number] 4mg Take 1 Univers (ZOFRAN) 4 5-25 tablet by ity of mg tablet 00:00: mouth [place] 00 every 8 Medical (eight) Branch hours as needed for Nausea and Vomiting (N/V). ondansetron 2020-0 Yes [id number] 4mg Take 1 Univers (ZOFRAN) 4 5-25 tablet by ity of mg tablet 00:00: mouth [place] 00 every 8 Medical (eight) Branch hours as needed for Nausea and Vomiting (N/V). ondansetron 2020-0 Yes [id number] 4mg Take 1 Univers (ZOFRAN) 4 5-25 tablet by ity of mg tablet 00:00: mouth [place] 00 every 8 Medical (eight) Branch hours as needed for Nausea and Vomiting (N/V). ondansetron 2020-0 Yes [id number] 4mg Take 1 Univers (ZOFRAN) 4 5-25 tablet by ity of mg tablet 00:00: mouth [place] 00 every 8 Medical (eight) Branch hours as needed for Nausea and Vomiting (N/V). ondansetron 1-0 Yes [id number] 4mg Take 1 Univers (ZOFRAN) 4 5-25 tablet by ity of mg tablet 00:00: mouth [place] 00 every 8 Medical (eight) Branch hours as needed for Nausea and Vomiting (N/V). ondansetron 2021-0 Yes [id number] 4mg Take 1 Univers (ZOFRAN) 4 5-25 tablet by ity of mg tablet 00:00: mouth [place] 00 every 8 Medical (eight) Branch hours as needed for Nausea and Vomiting (N/V). ondansetron 2021-0 Yes [id number] 4mg Take 1 Univers (ZOFRAN) 4 5-25 tablet by ity of mg tablet 00:00: mouth [place] 00 every 8 Medical (eight) Branch hours as needed for Nausea and Vomiting (N/V). ondansetron 2020-0 Yes [id number] 4mg Take 1 Univers (ZOFRAN) 4 5-25 tablet by ity of mg tablet 00:00: mouth [place] 00 every 8 Medical (eight) Branch hours as needed for Nausea and Vomiting (N/V). ondansetron 2020-0 Yes [id number] 4mg Take 1 Univers (ZOFRAN) 4 5-25 tablet by ity of mg tablet 00:00: mouth [place] 00 every 8 Medical (eight) Branch hours as needed for Nausea and Vomiting (N/V). ondansetron 2020-0 Yes [id number] 4mg Take 1 Univers (ZOFRAN) 4 5-25 tablet by ity of mg tablet 00:00: mouth [place] 00 every 8 Medical (eight) Branch hours as needed for Nausea and Vomiting (N/V). ondansetron 2020-0 Yes [id number] 4mg Take 1 Univers (ZOFRAN) 4 5-25 tablet by ity of mg tablet 00:00: mouth [place] 00 every 8 Medical (eight) Branch hours as needed for Nausea and Vomiting (N/V). ondansetron 2020-0 Yes [id number] 4mg Take 1 Univers (ZOFRAN) 4 5-25 tablet by ity of mg tablet 00:00: mouth [place] 00 every 8 Medical (eight) Branch hours as needed for Nausea and Vomiting (N/V). ondansetron 2020-0 Yes [id number] 4mg Take 1 Univers (ZOFRAN) 4 5-25 tablet by ity of mg tablet 00:00: mouth [place] 00 every 8 Medical (eight) Branch hours as needed for Nausea and Vomiting (N/V). ondansetron 2020-0 Yes [id number] 4mg Take 1 Univers (ZOFRAN) 4 5-25 tablet by ity of mg tablet 00:00: mouth [place] 00 every 8 Medical (eight) Branch hours as needed for Nausea and Vomiting (N/V). ondansetron 2020-0 Yes [id number] 4mg Take 1 Univers (ZOFRAN) 4 5-25 tablet by ity of mg tablet 00:00: mouth [place] 00 every 8 Medical (eight) Branch hours as needed for Nausea and Vomiting (N/V). ondansetron Yes [id number] 4mg Take 1 Univers (ZOFRAN) 4 5-25 tablet by ity of mg tablet 00:00: mouth [place] 00 every 8 Medical (eight) Branch hours as needed for Nausea and Vomiting (N/V). ondansetron Yes [id number] 4mg Take 1 Univers (ZOFRAN) 4 5-25 tablet by ity of mg tablet 00:00: mouth [place] 00 every 8 Medical (eight) Branch hours as needed for Nausea and Vomiting (N/V). ondansetron Yes [id number] 4mg Take 1 Univers (ZOFRAN) 4 5-25 tablet by ity of mg tablet 00:00: mouth [place] 00 every 8 Medical (eight) Branch hours as needed for Nausea and Vomiting (N/V). ondansetron Yes [id number] 4mg Take 1 Univers (ZOFRAN) 4 5-25 tablet by ity of mg tablet 00:00: mouth [place] 00 every 8 Medical (eight) Branch hours as needed for Nausea and Vomiting (N/V). ondansetron 2020- No [id number] 4mg Take 1 Univers (ZOFRAN) 4 5-25 [...] 7 days. Indication s: acute pain butorphanol 2021-0 2021- No 1mg 1 mg, IV U nivers (STADOL) 07-04 Push, ity of injection 1 21:15: 20:28 ONCE, 1 [place] mg 00 :00 dose, On License Of [facility] 07/04/20 at Branch 1615, Routine proMETHazin 2020- [...] [place] mg 00 :00 dose, On License Of [facility] 07/04/20 at Branch 1430, Routine LORazepam No 1mg 1 mg, Slow U nivers (ATIVAN) 07-04 IV Push, ity of injection 1 19:30: 19:00 ONCE, 1 [place] mg 00 :00 dose, On License Of [facility] 07/04/20 at Branch 1430, STAT NaCl 0.9% 2020- No 1000mL at 999 Uni vers (NS) IV 07-04 mL/hr, IV ity of infusion 19:30: 20:53 Infusion, [place] 1,000 mL 00 :00 ONCE, 1 Medical dose, [facility] 07/04/20 at 1430, Routine dexamethaso No 10mg 10 mg, IV Univers ne 07-04 Push, ity of (DECADRON 19:30: 19:02 ONCE, 1 [place] PHOSPHATE) 00 :00 dose, [facility] bernadine injection 07/04/20 at [facility] 10 mg 1430, STAT butalbital- 2020- No 2{tbl} 2 tablet, Univers acetaminoph 07-04 Oral, ity of en-caff 19:30: 18:40 ONCE, 1 [place] (ESGIC) 00 :00 dose, On License Of [facility] 50-325-40 07/04/20 at Bran ch mg tablet 2 1430, tablet Routine butalbital- Yes [id number] 1{tbl} Take 1 Univers acetaminoph 5-23 tablet by ity of en-caff 00:00: mouth [place] 50-325-40 00 every 6 Medical mg tablet (six) Branch hours as needed for Pain (scale 7-10). butalbital- Yes [id number] 1{tbl} Take 1 Univers acetaminoph 5-23 tablet by ity of en-caff 00:00: mouth [place] 50-325-40 00 every 6 Medical mg tablet (six) Branch hours as needed for Pain (scale 7-10). butalbital- Yes [id number] 1{tbl} Take 1 Univers acetaminoph 5-23 tablet by ity of en-caff 00:00: mouth [place] 50-325-40 00 every 6 Medical mg tablet (six) Branch hours as needed for Pain (scale 7-10). butalbital- Yes [id number] 1{tbl} Take 1 Univers acetaminoph 5-23 tablet by ity of en-caff 00:00: mouth [place] 50-325-40 00 every 6 Medical mg tablet (six) Branch hours as needed for Pain (scale 7-10). butalbital- Yes [id number] 1{tbl} Take 1 Univers acetaminoph 5-23 tablet by ity of en-caff 00:00: mouth [place] 50-325-40 00 every 6 Medical mg tablet (six) Branch hours as needed for Pain (scale 7-10). butalbital- Yes [id number] 1{tbl} Take 1 Univers acetaminoph 5-23 tablet by ity of en-caff 00:00: mouth [place] 50-325-40 00 every 6 Medical mg tablet (six) Branch hours as needed for Pain (scale 7-10). butalbital- Yes [id number] 1{tbl} Take 1 Univers acetaminoph 5-23 tablet by ity of en-caff 00:00: mouth [place] 50-325-40 00 every 6 Medical mg tablet (six) Branch hours as needed for Pain (scale 7-10). butalbital- Yes [id number] 1{tbl} Take 1 Univers acetaminoph 5-23 tablet by ity of en-caff 00:00: mouth [place] 50-325-40 00 every 6 Medical mg tablet (six) Branch hours as needed for Pain (scale 7-10). butalbital- Yes [id number] 1{tbl} Take 1 Univers acetaminoph 5-23 tablet by ity of en-caff 00:00: mouth [place] 50-325-40 00 every 6 Medical mg tablet (six) Branch hours as needed for Pain (scale 7-10). butalbital- Yes [id number] 1{tbl} Take 1 Univers acetaminoph 5-23 tablet by ity of en-caff 00:00: mouth [place] 50-325-40 00 every 6 Medical mg tablet (six) Branch hours as needed for Pain (scale 7-10). butalbital Yes [id number] 1{tbl} Take 1 Univers acetaminoph 5-23 tablet by ity of en-caff 00:00: mouth [place] 50-325-40 00 every 6 Medical mg tablet (six) Branch hours as needed for Pain (scale 7-10). butalbital- Yes [id number] 1{tbl} Take 1 Univers acetaminoph 5-23 tablet by ity of en-caff 00:00: mouth [place] 50-325-40 00 every 6 Medical mg tablet (six) Branch hours as needed for Pain (scale 7-10). butalbital- Yes [id number] 1{tbl} Take 1 Univers acetaminoph 5-23 tablet by ity of en-caff 00:00: mouth [place] 50-325-40 00 every 6 Medical mg tablet (six) Branch hours as needed for Pain (scale 7-10). butalbital- Yes [id number] 1{tbl} Take 1 Univers acetaminoph 5-23 tablet by ity of en-caff 00:00: mouth [place] 50-325-40 00 every 6 Medical mg tablet (six) Branch hours as needed for Pain (scale 7-10). butalbital- Yes [id number] 1{tbl} Take 1 Univers acetaminoph 5-23 tablet by ity of en-caff 00:00: mouth [place] 50-325-40 00 every 6 Medical mg tablet (six) Branch hours as needed for Pain (scale 7-10). butalbital- Yes [id number] 1{tbl} Take 1 Univers acetaminoph 5-23 tablet by ity of en-caff 00:00: mouth [place] 50-325-40 00 every 6 Medical mg tablet (six) Branch hours as needed for Pain (scale 7-10). butalbital- Yes [id number] 1{tbl} Take 1 Univers acetaminoph 5-23 tablet by ity of en-caff 00:00: mouth [place] 50-325-40 00 every 6 Medical mg tablet (six) Branch hours as needed for Pain (scale 7-10). butalbital- Yes [id number] 1{tbl} Take 1 Univers acetaminoph 5-23 tablet by ity of en-caff 00:00: mouth [place] 50-325-40 00 every 6 Medical mg tablet (six) Branch hours as needed for Pain (scale 7-10). butalbital- Yes [id number] 1{tbl} Take 1 Univers acetaminoph 5-23 tablet by ity of en-caff 00:00: mouth [place] 50-325-40 00 every 6 Medical mg tablet (six) Branch hours as needed for Pain (scale 7-10). butalbital- Yes [id number] 1{tbl} Take 1 Univers acetaminoph 5-23 tablet by ity of en-caff 00:00: mouth [place] 50-325-40 00 every 6 Medical mg tablet (six) Branch hours as needed for Pain (scale 7-10). butalbital- Yes [id number] 1{tbl} Take 1 Univers acetaminoph 5-23 tablet by ity of en-caff 00:00: mouth [place] 50-325-40 00 every 6 Medical mg tablet (six) Branch hours as needed for Pain (scale 7-10). butalbital- Yes [id number] 1{tbl} Take 1 Univers acetaminoph 5-23 tablet by ity of en-caff 00:00: mouth [place] 50-325-40 00 every 6 Medical mg tablet (six) Branch hours as needed for Pain (scale 7-10). butalbital- 2020- No [id number] 1{tbl} Take 1 Univers acetaminoph 5-23 10-24 [...] 1mg 1 mg, IV U nivers (STADOL) 5-17 05-17 Push, ity of injection 1 21:41: 22:04 ONCE, 1 [place] mg 00 :00 dose, [facility] 06/28/20 at Branch 1645, Routine loperamide 2020- No 2mg 2 mg, Unive rs (IMODIUM 06-28 Oral, ity of A-D) 21:30: 22:26 ONCE, 1 [place] capsule 2 00 :00 dose, Mon Medic al mg 06/28/20 at Branch 1630, Routine LORazepam Yes 1mg 1 mg, Univers (ATIVAN) 06-28 Oral, ity of tablet 1 mg 20:40: QHSPRN, 2 [place] doses, Medical Starting [facility] 06/28/20 at 1540, Until Discontinu ed, Routine, Anxiety butorphanol 2020- No 1mg 1 mg, IV U nivers (STADOL) 06-28 Push, ity of injection 1 15:35: 20:07 ONCE, 1 [place] mg 00 :00 dose, [facility] 06/28/20 at Branch 1045, Routine proMETHazin Yes 25mg 25 mg, IV U nivers e 06-28 Piggyback, ity of (PHENERGAN) 13:15: Q6HPRN, [place] 25 mg in 38 Starting Medical NaCl 0.9% [facility] (NS) 50 mL 06/28/20 at IV 0815, piggyback Until Discontinu ed, Routine, Nausea and Vomiting (N/V) hydrOXYzine Yes 10mg 10 mg, Univ ers (ATARAX) 06-28 Oral, ity of tablet 10 06:58: Q6HPRN, [place] mg 54 Starting Medical [facility] 06/28/20 at 0158, Until Discontinu ed, Routine, Anxiety melatonin 0 Yes 3mg 3 mg, Univers (MELATIN) 06-28 Oral, QHS, ity of tablet 3 mg 02:00: First dose [place] 00 on On License Of [facility] 06/27/20 at Branch 2100, Until Discontinu ed, Routine butalbital- 0 Yes 1{tbl} 1 tablet, Univers acetaminoph 06-28 Oral, ity of en-caff 01:06: Q6HPRN, [place] (ESGIC) 14 Starting Medical 50-325-40 Sun Branch [...] by ity of tablet 00:00: mouth 3 [place] (three) Medical times Branch daily. cyclobenzap 2020-0 Yes 5mg Take 1 Univ ers rine 5 mg 5-17 tablet by ity o f tablet 00:00: mouth 3 [place] (three) Medical times Branch daily. busPIRone 2020-0 Yes 20mg Take 2 Univer s 10 mg 5-17 tablets by ity of tablet 00:00: mouth [place] (three) Medical times Branch daily. LORazepam 1 2020-0 Yes 1mg Take 1 Univ ers mg tablet 5-17 tablet by ity o f 00:00: mouth at [place] 00 bedtime as Medical needed for Branch [...] by ity of tablet 00:00: mouth 3 [place] (three) Medical times Branch daily. cyclobenzap 2020-0 Yes 5mg Take 1 Univ ers rine 5 mg 5-17 tablet by ity o f tablet 00:00: mouth 3 [place] 00 (three) Medical times Branch daily. busPIRone [...] mouth (three) Medical times Branch daily. cyclobenzap 1-0 Yes 5mg Take 1 Univ ers rine [...] (three) Medical times Branch daily. LORazepam 1 Yes 1mg Take 1 Univ ers mg tablet 5-17 tablet by ity o f 00:00: mouth at [place] 00 bedtime as Medical needed for Branch Anxiety or Agitation (insomnia) . ubrogepant 0 Yes 50mg Take 50 mg U nivers (UBRELVY) 5-17 by mouth ity of 50 mg Tab 00:00: as needed [place] as 00 for Other Medical (Headache) Branch . proMETHazin Yes 12.5mg Take 0.5 Univers e 25 mg 5-17 tablets by ity of tablet 00:00: mouth [place] 00 every 6 Medical (six) Branch hours as needed for Nausea and Vomiting (N/V). gabapentin Yes 600mg Take 1 Univ ers 600 mg 5-17 tablet by ity of tablet 00:00: mouth 3 (three) Medical times Branch daily. busPIRone Yes 20mg Take 2 Univer s 10 mg 5-17 tablets by ity of tablet 00:00: mouth 3 (three) Medical times Branch daily. LORazepam 1 Yes 1mg Take 1 Univ ers mg tablet 5-17 tablet by ity o f 00:00: mouth at [place] 00 bedtime as Medical needed for Branch Anxiety or Agitation (insomnia) . proMETHazin Yes 12.5mg Take 0.5 Univers [...] needed for Nausea and Vomiting (N/V). ubrogepant 2021-0 Yes 50mg Take 50 mg [...] 3 (three) Medical times Branch daily. cyclobenzap 0 [...] for Nausea and Vomiting (N/V). cyclobenzap 2020-0 2021- No 5mg Take 1 Uni vers rine 5 mg 5-17 -24 tablet by ity of tablet 00:00: 00:00 [...] :50 Starting Medi bernadine mg [facility] 06/27/20 at 1625, Until 06/28/20 at 0815, Routine, Nausea and Vomiting (N/V) cyclobenzap Yes 5mg 5 mg, Unive rs rine 5-16 Oral, TID, ity of (FLEXERIL) 16:00: First dose [place] tablet 5 mg 00 on [facility] 06/27/20 at Branch 1100, Until Discontinu ed, Routine ibuprofen 0 Yes 600mg 600 mg, Univ ers (IBU) 5-16 Oral, ity of tablet 600 15:49: Q6HPRN, [place] mg 19 Starting Medical [facility] 06/27/20 at 1049, Until Discontinu ed, Routine, Pain (scale 4-6) pantoprazol Yes 40mg 40 mg, Univ ers e 5-16 Oral, ity of (PROTONIX) 14:00: DAILY, [place] EC tablet 00 First dose Medi bernadine 40 mg on [facility] 06/27/20 at 0900, Until Discontinu ed, Routine losartan 0 Yes 50mg 50 mg, Univers (COZAAR) 5-16 Oral, ity of tablet 50 14:00: DAILY, [place] mg 00 First dose Medical on [facility] 06/27/20 at 0900, Until Discontinu ed, Routine metoprolol 0 Yes 25mg 25 mg, Unive rs succinate 5-16 Oral, ity of XL (TOPROL 14:00: DAILY, [place] XL) tablet 00 First dose Med ical 25 mg on [facility] 06/27/20 at 0900, Until Discontinu ed azaTHIOprin Yes 150mg 150 mg, Un matt e (IMURAN) 16 Oral, ity of tablet 150 14:00: DAILY, [place] mg 00 First dose Medical on [facility] 06/27/20 at 0900, Until Discontinu ed, Routine heparin 0 Yes 5000U 5,000 Univers (porcine) 06-27 Units, ity of injection 13:00: Subcutaneo [place] 5,000 Units 00 us, Q12H, Med ical First dose Branch on [place] 06/27/20 at 0800, Until Discontinu ed, Routine dicyclomine Yes 20mg 20 mg, Univ ers (BENTYL) 06-27 Oral, TID, ity o f tablet 20 13:00: First dose [place] mg 00 on On License Of [facility] 06/27/20 at Branch 0800, Until Discontinu ed, Routine gabapentin 2020- No 400mg 400 mg, Un matt (NEURONTIN) 06-27 Oral, TID, i ty of capsule 400 13:00: 20:40 First dose [place] mg 00 :15 on On License Of [facility] 06/27/20 at Branch 0800, Until Discontinu ed, Routine morpHINE 2020- No 2mg 2 mg, Slow Un matt injection 2 06-27 IV Push, ity of mg 10:00: 09:07 ONCE, 1 [place] 00 :00 dose, On License Of [facility] 06/27/20 at Branch 0500, GIGI LORazepam 2020- No 2mg 2 mg, Univer s (ATIVAN) 06-27 Oral, ity of tablet 2 mg 06:00: 08:58 ONCE, 1 [place] 00 :00 dose, On License Of [facility] 06/27/20 at Branch 0100, Routine gabapentin 2020- No 600mg 600 mg, Un matt (NEURONTIN) 06-27 Oral, ity of tablet 600 05:00: 04:03 ONCE, 1 [place] mg 00 :00 dose, On License Of [facility] 06/27/20 at Branch 0000, GIGI magnesium 2020- No 2g 2 g, IV Univ ers sulfate in 06-27 Piggyback, it y of water 2 04:15: 06:10 ONCE, 1 [place] gram/50 mL 00 :00 dose, Sat Medi bernadine (4 %) 06/26/20 at [place] infusion 2 2315, GIGI g valproate 2020- No 500mg 500 mg, IV Univers (DEPACON) 06-27 Piggyback, ity of 500 mg in 04:15: 04:54 ONCE, 1 [place] D5W 00 :00 dose, Sat Medical piggyback 06/26/20 at [facility] ch 2315, 100 mL LORazepam 2020- [...] tablet 650 19 Starting Medic al mg [facility] 06/26/20 at 2249, Until Discontinu ed, Routine, Pain (scale 4-6) oxybutynin Yes 5mg 5 mg, Univer s chloride 06-27 Oral, ity of (DITROPAN) 03:49: TIDPRN, [place] tablet 5 mg 06 Starting Medi bernadine [facility] 06/26/20 at 2249, Until Discontinu ed, Routine, Bladder spasms ketorolac No 30mg 30 mg, Unive rs (TORADOL) [...] 06/26/20 at piggyback 2014, 50 mL morpHINE No 4mg 4 mg, Slow Un matt injection 4 06-27 IV Push, ity of mg 01:15: 00:18 ONCE, 1 [place] 00 :00 dose, Sat Medical 06/26/20 at Branch 2014, STAT iopamidol 2020- No [id number] 100mL 100 mL, Univers (ISOVUE 06-26 Intravenou [...] ty of en-caff 22:15: 21:26 NOW, 1 [place] (ESGIC) 00 :00 dose, Sat Medical 50-325-40 06/26/20 at [facility] ch mg tablet 1 171, GIGI tablet nitroglycer 2020- No .4mg 0.4 mg, Un matt in 06-26 Sublingual ity of (NITROSTAT) 22:15: 21:26 , ONCE, 1 [place] sublingual 00 :00 dose, Sat Medi bernadine tablet 0.4 06/26/20 at [place] mg 1715, GIGI magnesium 2020- No 2g 2 g, [...] IV ity of (BENADRYL) 21:30: 20:31 Push, [place] injection 00 :00 ONCE, 1 Medical 25 mg dose, Sat Branch 06/26/20 at 1630, STAT metoclopram 2020- No 10mg 10 mg, Uni vers marilyn HCl 06-26 Slow IV ity of (REGLAN) 21:30: 20:30 Push, [place] injection 00 :00 ONCE, 1 Medical 10 [...] 1000mL at 999 Uni vers (NS) bolus 06-26-15 mL/hr, ity of infusion 20:30: 22:32 1,000 mL, [place] as 1,000 mL 00 :00 IV Medical Infusion, [place] ONCE, 1 dose, 06/26/20 at 1530, GIGI aspirin 2020- No 325mg 325 mg, Unive rs tablet 325 15 05-15 Oral, ity of mg 20:15: 20:30 [...] injection 47 sly every Medic al 14 [place] (fourteen) days. dicyclomine Yes 20mg Take 20 [...] at Branch 2315, Routine pantoprazol 2020- No [id number] 40mg Take 1 Univers e 40 mg EC 06-02 tablet by ity of tablet 00:00: 04:59 mouth [place] 00 :00 daily for Medical 30 days. Branch pantoprazol 2020- No [id number] 40mg Take 1 Univers e 40 mg EC 06-02 tablet by ity of tablet 00:00: 04:59 mouth [place] 00 :00 daily for Medical 30 days. Branch pantoprazol 2020- No [id number] 40mg Take 1 Univers e 40 mg EC 06-02 tablet by ity of tablet 00:00: 04:59 mouth [place] 00 :00 daily for Medical 30 days. Branch HYDROcodone 2020- No [id number] 1{tbl} Take 1 U nivers -acetaminop -06-10 tablet by it y of hen 10-325 00:00: 04:59 mouth [place] mg tablet 00 :00 every 6 Medical (six) Branch hours as needed for Pain (scale 4-6) for up to 7 days. Indication s: acute pain proMETHazin 2020- No [id number] 25mg Take 1 Univers e 25 mg [...] [place] mg 00 on [facility] 06/01/20 at [place] 1415, Until Discontinu ed, Routine HYDROcodone Yes 1{tbl} 1 tablet, Univers -acetaminop 4-20 Oral, ity of hen (NORCO) 19:00: Q6HPRN, [place] 10-325 mg 48 Starting Medica l tablet 1 [facility] tablet 06/01/20 at 1400, Until Discontinu ed, Routine, Pain (scale 4-6) cefpodoxime 2020- No Take by Un matt proxetil 4-20 04-20 mouth. ity of (VANTIN 18:00: 00:00 [place] ORAL) 17 :00 Medical Branch proMETHazin Yes 25mg 25 mg, [facility] ers e 4-20 Oral, ity of (PHENERGAN) 15:20: Q4HPRN, [place] tablet 25 12 Starting Medica l mg [facility] 06/01/20 at 1020, Until Discontinu ed, Routine, Nausea and Vomiting (N/V) acetaminoph 2020- No 1{tbl} 1 tablet, Univers en-codeine -20 04-20 Oral, ity of (TYLENOL 15:18: 19:01 Q4HPRN, [place] #3) 300-30 42 :49 Starting Medic al mg tablet 1 [facility] tablet 06/01/20 at 1018, Until [facility] 06/01/20 at 1401, Routine, Pain (scale 4-6) pantoprazol Yes 40mg 40 mg, Univ ers e 4-20 Oral, ity of (PROTONIX) 14:30: DAILY, [place] EC tablet 00 First dose Medi bernadine 40 mg on [facility] 06/01/20 at 0930, Until Discontinu ed, Routine azaTHIOprin Yes 150mg 150 mg, Un matt e (IMURAN) 4-20 Oral, ity of tablet 150 14:30: DAILY, [place] mg 00 First dose Medical (after Branch last modificati on) on [facility] 06/01/20 at 0930, Until Discontinu ed, Routine morpHINE Yes 2mg 2 mg, Slow Uni vers injection 2 4-20 IV Push, ity of mg 08:26: Q4HPRN, [place] 30 Starting Medical [facility] 06/01/20 at 0326, Until Discontinu ed, Routine, Pain (scale 7-10) morpHINE 2020- No 2mg 2 mg, Slow Un matt injection 2 4-20 04-20 IV Push, ity of mg 06:00: 05:01 ONCE, 1 [place] 00 :00 dose, [facility] 06/01/20 at Branch 0100, Routine amoxicillin 2020- No [id number] 1{tbl} Take 1 Univers -clavulanat 4-20 04-28 tablet by it y of e 00:00: 04:59 mouth 2 [place] (AUGMENTIN) 00 :00 (two) Medical 875-125 mg times Branch per tablet daily for 7 days. proMETHazin No 25mg 25 mg, IV Univers e 05-31 Piggyback, ity of (PHENERGAN) 22:18: 15:20 Q6HPRN, [place] 25 mg in 42 :48 Starting Medical NaCl 0.9% Mon Branch (NS) 50 mL 05/31/20 at IV 1718, piggyback Until 06/01/20 at 1020, Routine, Nausea and Vomiting (N/V) acetaminoph Yes 650mg 650 mg, Un matt en 05-31 Oral, ity of (TYLENOL) 15:33: Q6HPRN, [place] tablet 650 00 Starting Medic al mg Sun [facility] 05/31/20 at 1033, Until Discontinu ed, Routine, Temp > 38.5 C butalbital- Yes 1{tbl} 1 tablet, Univers acetaminoph 05-31 Oral, ity of en-caff 15:27: Q6HPRN, [place] (ESGIC) 07 Starting Medical 50-325-40 Mon Branch [...] Oral, ity of XL (TOPROL 14:00: DAILY, [place] XL) tablet 00 First dose Med ical 25 mg (after Branch last modificati on) on Sun05/31/20 at 0900, Until Discontinu ed enoxaparin Yes 40mg 40 mg, Unive rs (LOVENOX) 05-31 Subcutaneo ity of injection 14:00: us, DAILY, [place] 40 mg 00 First dose Medical on [facility] 05/31/20 at 0900, Until Discontinu ed, Routine azaTHIOprin 2020- No 50mg 50 mg, Uni vers e (IMURAN) 05-31 Oral, ity of tablet 50 14:00: 14:19 DAILY, [place] mg 00 :13 First dose Medical on [facility] 05/31/20 at 0900, Until Discontinu ed, Routine gabapentin Yes 400mg 400 mg, Uni vers (NEURONTIN) 05-31 Oral, TID, it y of 400 mg 13:00: First dose [place] 00 on [facility] 05/31/20 at Branch 0800, Until Discontinu ed, Routine dicyclomine Yes 20mg 20 mg, Univ ers (BENTYL) 05-31 Oral, TID, ity o f tablet 20 13:00: First dose [place] mg 00 on [facility] 05/31/20 at Branch 0800, Until Discontinu ed, Routine busPIRone Yes 15mg 15 mg, Univer s (BUSPAR) 05-31 Oral, TID, ity o f tablet 15 13:00: First dose [place] mg 00 on [facility] 05/31/20 at Branch 0800, Until Discontinu ed, Routine temazepam 2020- No 15mg 15 mg, Unive rs (RESTORIL) 05-31 Oral, ity of capsule 15 06:30: 05:28 ONCE, 1 [place] mg 00 :00 dose, [facility] 05/31/20 at Branch 0130, Routine proMETHazin 2020- No 25mg 25 mg, Uni vers e 05-31 Oral, ity of (PHENERGAN) 05:29: 22:06 Q6HPRN, [place] tablet 25 16 :24 Starting Medica l mg [facility] 05/31/20 at 0029, Until [facility] 05/31/20 at 1706, Routine, Nausea and Vomiting [...] First dose [place] mg 00 :25 on On License Of [facility] 05/30/20 at Branch 2000, Until Discontinu ed, Routine piperacilli 2020- No 3.375g 3.375 g, Univers n-tazobacta 05-30 IV ity of m (ZOSYN) 22:45: 22:40 Piggyback, [place] 3.375 g in 00 :00 ONCE, 1 Medica l NaCl 0.9% dose, [facility] h (NS) 100 mL 05/30/20 at MINI-BAG 1745, 100 mL
Reas on for Anti-Infec tive: Documented Infection< br>Documen karly Infection Site: Urine
D uration of Therapy: Other (see Comments) FENTanyl PF 2020- No 75ug 75 mcg, Un matt (SUBLIMAZE 05-30 Slow IV ity o f (PF)) 22:45: 21:55 Push, [place] injection 00 :00 ONCE, 1 Medical 75 mcg dose, [facility] 05/30/20 at 1745, STAT proMETHazin 2020- No 25mg 25 mg, IV Univers e 05-30 Piggyback, ity of (PHENERGAN) 22:45: 22:45 ONCE, 1 [place] 25 mg in 00 :00 dose, [place] [facility] NaCl 0.9% 05/30/20 at Bran ch (NS) 50 mL 1745, 50 piggyback mL NaCl 0.9% 2020- No 1000mL at 100 Uni vers (NS) IV 05-30 04-20 mL/hr, IV ity of infusion 22:30: 19:01 Infusion, [place] as 1,000 mL 00 :49 CONTINUOUS Medic al , Starting [facility] 05/30/20 at 1730, Until Sun06/01/20 at 1401, Routine ondansetron Yes 4mg 4 mg, Slow Univers (ZOFRAN 05-30 IV Push, ity of (PF)) 22:23: Q6HPRN, [place] injection 4 13 Starting Medi bernadine mg [facility] 05/30/20 at 1723, Until Discontinu ed, Routine, Nausea and Vomiting (N/V) morpHINE 2020- No 4mg 4 mg, Slow Un matt injection 4 05-30 IV Push, ity of mg 22:23: 22:22 Q4HPRN, [place] 07 :07 Starting Medical [facility] 05/30/20 at 1723, Until 05/31/20 at 1722, Routine, Pain (scale 7-10) HYDROcodone 2020- No 1{tbl} 1 tablet, Univers -acetaminop 05-30 Oral, ity of hen (NORCO 22:23: 15:19 Q6HPRN, [place] as 5) 5-325 mg 02 :39 Starting Medi bernadine tablet 1 Sun [place] tablet 05/30/20 at 1723, Until 06/01/20 at 1019, Routine, Pain (scale 4-6) acetaminoph 2020- No 650mg 650 mg, U nivers en 05-30 Oral, ity of (TYLENOL) 22:22: 15:33 Q6HPRN, [place] tablet 650 55 :25 Starting Medic al mg [facility] 05/30/20 at 1722, Until 05/31/20 at 1033, Routine, Pain (scale 1-3), Temp > 38.5 C oxybutynin Yes 5mg 5 mg, Univer s chloride 05-30 Oral, ity of (DITROPAN) 22:21: TIDPRN, [place] tablet 5 mg 36 Starting Medi bernadine [facility] 05/30/20 at 1721, Until Discontinu ed, Routine, Bladder spasms iohexol 2020- No [id number] 100mL 100 mL, Univers (OMNIPAQUE 05-30 Intravenou it y of 350 21:00: 20:40 s, ONCE, 1 [place] BULK-100 00 :00 dose, Sun Medica l mL) 05/30/20 at Branch injection 1600, 100 mL Routine FENTanyl PF 2020- No 50ug 50 mcg, Un matt (SUBLIMAZE 05-30 Slow IV ity o f (PF)) 21:00: 20:35 Push, [place] injection 00 :00 ONCE, 1 Medical 50 mcg dose, [facility] 05/30/20 at 1600, Routine ondansetron 2020- No 4mg 4 mg, Slow Univers (ZOFRAN 05-30 IV Push, ity of (PF)) 21:00: 20:22 ONCE, 1 [place] injection 4 00 :00 dose, Sun Med ical mg 05/30/20 at Branch 1600, GIGI proMETHazin 2020- No 25mg 25 mg, IV Univers e 05-27 Piggyback, ity of (PHENERGAN) 02:45: 01:47 ONCE, 1 [place] 25 mg in 00 :00 dose, [facility] Medic l NaCl 0.9% 05/26/20 at [facility] ch (NS) 50 mL 2145, 50 piggyback mL butorphanol 2020- No 2mg 2 mg, IV U nivers (STADOL) 05-27 Push, ity of injection 2 02:45: 01:33 ONCE, 1 [place] mg 00 :00 dose, [facility] 05/26/20 at Branch 2145, Routine ONDANSETRON 2020- No Take by Un matt HCL (ZOFRAN 05-27 mouth. ity o f ORAL) 01:43: 00:00 [place] 58 :00 [facility] dicyclomine 2020- No 10mg Take 10 mg Univers 10 mg 05-27 by mouth. ity of capsule 01:43: 00:00 [place] 58 :00 [facility] butorphanol 2020- No 1mg 1 mg, IV U nivers (STADOL) 05-27 Push, ity of injection 1 01:30: 00:38 ONCE, 1 [place] mg 00 :00 dose, [facility] 05/26/20 at Branch 2030, Routine NaCl 0.9% 2020- No 1000mL at 999 Uni vers (NS) bolus 05-26-15 mL/hr, ity of infusion 23:30: 01:49 1,000 mL, [place] 1,000 mL 00 :00 IV Medical Infusion, Branch ONCE, 1 dose, 05/26/20 at 1830, GIGI oxybutynin 2021-0 Yes [id number] 5mg Take 1 U nivers chloride 5 4-14 tablet by ity of mg tablet 00:00: mouth (three) Medical times Branch daily as needed for Bladder spasms. oxybutynin 2021-0 Yes [id number] 5mg Take 1 U nivers chloride 5 4-14 tablet by ity of mg tablet 00:00: mouth (three) Medical times Branch daily as needed for Bladder spasms. oxybutynin 2021-0 Yes [id number] 5mg Take 1 U nivers chloride 5 4-14 tablet by ity of mg tablet 00:00: mouth (three) Medical times Branch daily as needed for Bladder spasms. oxybutynin 2021-0 Yes [id number] 5mg Take 1 U nivers chloride 5 4-14 tablet by ity of mg tablet 00:00: mouth (three) Medical times Branch daily as needed for Bladder spasms. oxybutynin 2021-0 Yes [id number] 5mg Take 1 U nivers chloride 5 4-14 tablet by ity of mg tablet 00:00: mouth (three) Medical times Branch daily as needed for Bladder spasms. oxybutynin 2021-0 Yes [id number] 5mg Take 1 U nivers chloride 5 4-14 tablet by ity of mg tablet 00:00: mouth (three) Medical times Branch daily as needed for Bladder spasms. oxybutynin 2021-0 Yes [id number] 5mg Take 1 U nivers chloride 5 4-14 tablet by ity of mg tablet 00:00: mouth (three) Medical times Branch daily as needed for Bladder spasms. oxybutynin 2021-0 Yes [id number] 5mg Take 1 U nivers chloride 5 4-14 tablet by ity of mg tablet 00:00: mouth (three) Medical times Branch daily as needed for Bladder spasms. oxybutynin 2021-0 Yes [id number] 5mg Take 1 U nivers chloride 5 4-14 tablet by ity of mg tablet 00:00: mouth (three) Medical times Branch daily as needed for Bladder spasms. oxybutynin 1-0 Yes [id number] 5mg Take 1 U nivers chloride 5 4-14 tablet by ity of mg tablet 00:00: mouth (three) Medical times Branch daily as needed for Bladder spasms. oxybutynin 1-0 Yes [id number] 5mg Take 1 U nivers chloride 5 4-14 tablet by ity of mg tablet 00:00: mouth (three) Medical times Branch daily as needed for Bladder spasms. oxybutynin 1-0 Yes [id number] 5mg Take 1 U nivers chloride 5 4-14 tablet by ity of mg tablet 00:00: mouth (three) Medical times Branch daily as needed for Bladder spasms. oxybutynin 1-0 Yes [id number] 5mg Take 1 U nivers chloride 5 4-14 tablet by ity of mg tablet 00:00: mouth (three) Medical times Branch daily as needed for Bladder spasms. oxybutynin 1-0 Yes [id number] 5mg Take 1 U nivers chloride 5 4-14 tablet by ity of mg tablet 00:00: mouth (three) Medical times Branch daily as needed for Bladder spasms. oxybutynin 1-0 Yes [id number] 5mg Take 1 U nivers chloride 5 4-14 tablet by ity of mg tablet 00:00: mouth (three) Medical times Branch daily as needed for Bladder spasms. oxybutynin 1-0 Yes [id number] 5mg Take 1 U nivers chloride 5 4-14 tablet by ity of mg tablet 00:00: mouth (three) Medical times Branch daily as needed for Bladder spasms. oxybutynin 1-0 Yes [id number] 5mg Take 1 U nivers chloride 5 4-14 tablet by ity of mg tablet 00:00: mouth (three) Medical times Branch daily as needed for Bladder spasms. oxybutynin 2021-0 Yes [id number] 5mg Take 1 U nivers chloride 5 4-14 tablet by ity of mg tablet 00:00: mouth (three) Medical times Branch daily as needed for Bladder spasms. oxybutynin 1-0 Yes [id number] 5mg Take 1 U nivers chloride 5 4-14 tablet by ity of mg tablet 00:00: mouth (three) Medical times Branch daily as needed for Bladder spasms. oxybutynin 2020-0 Yes [id number] 5mg Take 1 U nivers chloride 5 4-14 tablet by ity of mg tablet 00:00: mouth (three) Medical times Branch daily as needed for Bladder spasms. oxybutynin 2020-0 Yes [id number] 5mg Take 1 U nivers chloride 5 4-14 tablet by ity of mg tablet 00:00: mouth (three) Medical times Branch daily as needed for Bladder spasms. oxybutynin 2020-0 Yes [id number] 5mg Take 1 U nivers chloride 5 4-14 tablet by ity of mg tablet 00:00: mouth (three) Medical times Branch daily as needed for Bladder spasms. oxybutynin 2020-0 Yes [id number] 5mg Take 1 U nivers chloride 5 4-14 tablet by ity of mg tablet 00:00: mouth (three) Medical times Branch daily as needed for Bladder spasms. oxybutynin 2020-0 Yes [id number] 5mg Take 1 U nivers chloride 5 4-14 tablet by ity of mg tablet 00:00: mouth (three) Medical times Branch daily as needed for Bladder spasms. oxybutynin 2020-0 Yes [id number] 5mg Take 1 U nivers chloride 5 4-14 tablet by ity of mg tablet 00:00: mouth (three) Medical times Branch daily as needed for Bladder spasms. oxybutynin 2020-0 Yes [id number] 5mg Take 1 U nivers chloride 5 4-14 tablet by ity of mg tablet 00:00: mouth (three) Medical times Branch daily as needed for Bladder spasms. phenazopyri 2020-0 Yes [id number] 200mg Take 1 Univers dine 200 mg 4-14 tablet by ity of tablet 00:00: mouth (three) Medical times Branch daily. proMETHazin 2020-0 Yes [id number] 25mg Take 1 Univers e 25 mg 4-14 tablet by ity of tablet 00:00: mouth every 6 Medical (six) Branch hours as needed for Nausea and Vomiting (N/V). oxybutynin 2020- No [id number] 5mg Take 1 Univers chloride 5 05-26-24 tablet by ity of mg tablet 00:00: 00:00 mouth 3 [place] 00 :00 (three) Medical times Branch daily as needed for Bladder spasms. proMETHazin 2020- No [id number] 25mg Take 1 Univers e 25 mg 05-26- tablet by ity of tablet 00:00: 00:00 mouth [place] 00 :00 every 6 Medical (six) Branch hours as needed for Nausea and Vomiting (N/V). phenazopyri 2020- No [id number] 200mg Take 1 Univers dine 200 mg 05-26 tablet by it y of tablet 00:00: 00:00 mouth 3 [place] 00 :00 (three) Medical times Branch daily. FENTanyl PF 2020- No 50ug 50 mcg, Un matt (SUBLIMAZE 05-13 Slow IV ity o f (PF)) 21:30: 20:45 Push, [place] injection 00 :00 ONCE, 1 Medical 50 mcg dose, [facility] 05/13/20 at 1630, Routine cefTRIAXone No 1000mg 1,000 mg, Univers (ROCEPHIN) 05-13 IV ity of 1,000 mg in 21:30: 21:22 Piggyback, [place] NaCl 0.9% 00 :00 ONCE, 1 Medical (NS) 50 mL dose, [facility] ch MINI-BAG 05/13/20 at 1630, 50 mL
Reas on for Anti-Infec tive: Empiric Therapy for Suspected Infection< br>Empiric Therapy Site: Urine
D uration of therapy: 72 hours proMETHazin 2020- No 25mg 25 mg, IV Univers e 05-13 Piggyback, ity of (PHENERGAN) 21:30: 20:47 ONCE, 1 [place] 25 mg in 00 :00 dose, [facility] Medica l NaCl 0.9% 05/13/20 at Branc h (NS) 50 mL 1630, 50 piggyback mL metoclopram 2020- No 10mg 10 mg, Uni vers marilyn HCl 05-13 Slow IV ity of (REGLAN) 19:15: 19:04 Push, [place] injection 00 :00 ONCE, 1 Medical 10 mg dose, [facility] 05/13/20 at 1415, GIGI FENTanyl PF 2020- No 50ug 50 mcg, Un matt (SUBLIMAZE 05-13 Slow IV ity o f (PF)) 19:00: 18:57 Push, [place] injection 00 :00 ONCE, 1 Medical 50 [...] at Branch 1245, GIGI iohexol 2020- No [id number] 120mL 120 mL, Univers (OMNIPAQUE 05-13 Intravenou [...] [facility] 05/13/20 at 1145, GIGI proMETHazin Yes [id number] 25mg Take 1 Univers e 25 mg 4-01 tablet by ity of tablet 00:00: mouth [place] 00 every 6 Medical (six) Branch hours as needed for Nausea and Vomiting (N/V). proMETHazin Yes [id number] 25mg Take 1 Univers e 25 mg 4-01 tablet by ity of tablet 00:00: mouth [place] 00 every 6 Medical (six) Branch hours as needed for Nausea and Vomiting (N/V). proMETHazin 2020- No [id number] 25mg Take 1 Univers e 25 mg 05-13-14 tablet by ity of tablet 00:00: 00:00 mouth [place] 00 :00 every 6 Medical (six) Branch hours as needed for Nausea and Vomiting (N/V). cefpodoxime 2020- No [id number] 100mg Take 1 Univers 100 mg 05-1309 [...] 15:51: [place] ORAL) 34 Medical Branch metoprolol 1-0 Yes Take by Univ ers succinate 2-09 mouth. ity of (TOPROL XL 15:51: [place] ORAL) Medical Branch gabapentin 2021-0 Yes [id number] 400mg Take 1 Univers 400 mg 2-09 capsule by ity of capsule 00:00: mouth 3 (three) Medical times Branch daily. gabapentin 2021-0 Yes [id number] 400mg Take 1 [facility] 400 mg 2-09 capsule by ity of capsule 00:00: mouth 3 (three) Medical times Branch daily. gabapentin 202-0 Yes [id number] 400mg Take 1 [facility] 400 mg 2-09 capsule by ity of capsule 00:00: mouth 3 (three) Medical times Branch daily. gabapentin 202-0 Yes [id number] 400mg Take 1 [facility] 400 mg 2-09 capsule by ity of capsule 00:00: mouth 3 (three) Medical times Branch daily. gabapentin 2020-0 Yes [id number] 400mg Take 1 [facility] 400 mg 2-09 capsule by ity of capsule 00:00: mouth 3 (three) Medical times Branch daily. gabapentin 2020-0 Yes [id number] 400mg Take 1 [facility] 400 mg 2-09 capsule by ity of capsule 00:00: mouth 3 [place] (three) Medical times Branch daily. gabapentin 2020-0 Yes [id number] 400mg Take 1 [facility] 400 mg 2-09 capsule by ity of capsule 00:00: mouth 3 (three) Medical times Branch daily. gabapentin 2021-0 Yes [id number] 400mg Take 1 [facility] 400 mg 2-09 capsule by ity of capsule 00:00: mouth 3 [place] (three) Medical times Branch daily. gabapentin 202-0 Yes [id number] 400mg Take 1 [facility] 400 mg 2-09 capsule by ity of capsule 00:00: mouth 3 (three) Medical times Branch daily. gabapentin 2021-0 Yes [id number] 400mg Take 1 [facility] 400 mg 2-09 capsule by ity of capsule 00:00: mouth 3 (three) Medical times Branch daily. gabapentin 2021-0 2021- No [id number] 400mg Take 1 [facility] 400 mg 2-09 05-17 capsule by ity of capsule 00:00: 00:00 mouth 3 [place] 00 :00 (three) Medical times Branch daily. gabapentin Yes 300mg Take 1 Univ ers 300 [...] ity o f (PF)) 20:00: 07:59 Push, [place] injection 00 :00 ONCE, 1 Medical 50 mcg dose, [facility] 12/08/19 at 1500, STAT proMETHazin 2019-02- No 12.5mg 12.5 mg, Univers e 0-07 12- IV ity of (PHENERGAN) 18:45: 17:52 Piggyback, [place] 12.5 mg in 00 :00 ONCE, 1 Medica l NaCl 0.9% dose, [facility] (NS) 50 mL 12/08/19 piggyback at 1345, 50 mL metoclopram 2019-02- No 10mg 10 mg, Uni vers marilyn HCl 0- 10- Slow IV ity of (REGLAN) 17:45: 17:07 Push, [place] injection 00 :00 ONCE, 1 Medical 10 mg dose, [facility] 12/08/19 at 1245, GIGI FENTanyl PF 2019-02 2020- No 50ug 50 mcg, Un matt (SUBLIMAZE 0- 10- Slow IV ity o f (PF)) 17:45: 17:07 Push, [place] injection 00 :00 ONCE, 1 Medical 50 mcg dose, [facility] 12/08/19 at 1245, STAT GABAPENTIN 2019-02 Yes TAKE 1 Unive rs 300 mg 0-26 CAPSULE BY ity of capsule 00:00: MOUTH [place] 00 THREE Medical TIMES A Branch DAY GABAPENTIN 2019-02 Yes TAKE 1 Unive rs 300 mg 0-26 CAPSULE BY ity of capsule 00:00: MOUTH [place] 00 THREE Medical TIMES A Branch DAY proMETHazin 2019- Yes [id number] 25mg Take 1 Univers e 25 mg 0-26 tablet by ity of tablet 00:00: mouth [place] 00 every 6 Medical (six) Branch hours as needed for Nausea and Vomiting (N/V). GABAPENTIN 2019-02 Yes TAKE 1 Unive rs 300 mg 0-26 CAPSULE BY ity of capsule 00:00: MOUTH [place] 00 THREE Medical TIMES A Branch DAY proMETHazin 2019-02 Yes [id number] 25mg Take 1 Univers e 25 mg 0-26 tablet by ity of tablet 00:00: mouth [place] 00 every 6 Medical (six) Branch hours as needed for Nausea and Vomiting (N/V). GABAPENTIN 2019-02 Yes TAKE 1 Unive rs 300 mg 0-26 CAPSULE BY ity of capsule 00:00: MOUTH [place] 00 THREE Medical TIMES A Branch DAY proMETHazin 2019-02 Yes [id number] 25mg Take 1 Univers e 25 mg 0-26 tablet by ity of tablet 00:00: mouth [place] 00 every 6 Medical (six) Branch hours as needed for Nausea and Vomiting (N/V). proMETHazin 2019-02 Yes [id number] 25mg Take 1 Univers e 25 mg 0-26 tablet by ity of tablet 00:00: mouth [place] 00 every 6 Medical (six) Branch hours as needed for Nausea and Vomiting (N/V). proMETHazin 2019-02 Yes [id number] 25mg Take 1 Univers e 25 mg 0-26 tablet by ity of tablet 00:00: mouth [place] 00 every 6 Medical (six) Branch hours as needed for Nausea and Vomiting (N/V). proMETHazin 2019- Yes [id number] 25mg Take 1 Univers e 25 mg 0-26 tablet by ity of tablet 00:00: mouth [place] 00 every 6 Medical (six) Branch hours as needed for Nausea and Vomiting (N/V). proMETHazin 2020-1 Yes [id number] 25mg Take 1 Univers e 25 mg 0-26 tablet by ity of tablet 00:00: mouth [place] 00 every 6 Medical (six) Branch hours as needed for Nausea and Vomiting (N/V). proMETHazin 2019- Yes [id number] 25mg Take 1 Univers e 25 mg 0-26 tablet by ity of tablet 00:00: mouth [place] 00 every 6 Medical (six) Branch hours as needed for Nausea and Vomiting (N/V). proMETHazin 2019-02 Yes [id number] 25mg Take 1 Univers e 25 mg 0-26 tablet by ity of tablet 00:00: mouth [place] 00 every 6 Medical (six) Branch hours as needed for Nausea and Vomiting (N/V). proMETHazin 2019-02 Yes [id number] 25mg Take 1 Univers e 25 mg 0-26 tablet by ity of tablet 00:00: mouth [place] 00 every 6 Medical (six) Branch hours as needed for Nausea and Vomiting (N/V). proMETHazin 2019-02 No [id number] 25mg Take 1 Univers e 25 mg 0-26 04-01 tablet by ity of tablet 00:00: 00:00 mouth [place] 00 :00 every 6 Medical (six) Branch hours as needed for Nausea and Vomiting (N/V). GABAPENTIN 2019-02 TAKE 1 Univ ers 300 mg 0-26 [...] days. Indication s: acute pain acetaminoph 2019-02 No [id number] 1{tbl} Take 1 U nivers en-codeine 0-26 11-03 tablet by ity of (TYLENOL-CO 00:00: 05:59 mouth [place] DE[place] #4[place] 00 :00 every 4 Medical 300-60 mg (four) Branch tablet hours as needed for Pain for up to 7 days. Indication s: acute pain busPIRone 5 2019-02 Yes Univer s mg tablet 0-23 ity of 00:00: [place] [facility] busPIRone 5 2019- Yes Univer s mg tablet 0-23 ity of 00:00: Medical Branch busPIRone 5 2019-02 Yes Univer s mg tablet 0-23 ity of 00:00: [place] [facility] busPIRone 5 2019-02 Yes Univer s mg tablet 0-23 ity of 00:00: [place] [facility] busPIRone 5 2019-02 Yes Univer s mg tablet 0-23 ity of 00:00: [place] [facility] busPIRone 5 2019-02 Yes Univer s mg tablet 0-23 ity of 00:00: [place] [facility] busPIRone 5 2019-02 Yes Univer s mg tablet 0-23 ity of 00:00: [place] [facility] busPIRone 5 2019-02 Yes Univer s mg tablet 0-23 ity of 00:00: [place] [facility] busPIRone 5 2019-02 Yes Univer s mg tablet 0-23 ity of 00:00: [place] [facility] busPIRone 5 2019- Yes Univer s mg tablet 0-23 ity of 00:00: [place] [facility] busPIRone 5 2019- Yes Univer s mg tablet 0-23 ity of 00:00: [place] [facility] busPIRone 5 2019- Yes Univer s mg tablet 0-23 ity of 00:00: [place] [facility] busPIRone 5 2019-02 Yes Univer s mg tablet 0-23 ity of 00:00: [place] [facility] busPIRone 5 2019-2020- No Unive rs mg tablet 0-23 04-18 ity of 00:00: 00:00 [place] 00 :00 Medical Branch losartan 50 2019-0 Yes 50mg Take 50 mg Univers mg tablet 9-21 by mouth ity of 00:00: daily. [place] [facility] losartan 50 2019- Yes 50mg Take 50 mg Univers mg tablet 9-21 by mouth ity of 00:00: daily. [place] [facility] losartan 50 2019-0 Yes 50mg Take 50 mg Univers mg tablet 9-21 by mouth ity of 00:00: daily. [place] [address] [facility] Branch losartan 50 2020-0 Yes 50mg Take 50 mg Univers mg tablet 9-21 by mouth ity of 00:00: daily. [place] [facility] losartan 50 2020-0 Yes 50mg Take 50 mg Univers mg tablet 9-21 by mouth ity of 00:00: daily. [place] [facility] Branch losartan 50 2020-0 Yes 50mg Take 50 mg Univers mg tablet 9-21 by mouth ity of 00:00: daily. [place] [facility] losartan 50 2020-0 Yes 50mg Take 50 mg Univers mg tablet 9-21 by mouth ity of 00:00: daily. [place] [facility] losartan 50 2020-0 Yes 50mg Take 50 mg Univers mg tablet 9-21 by mouth ity of 00:00: daily. [place] [facility] losartan 50 2020-0 Yes 50mg Take 50 mg Univers mg tablet 9-21 by mouth ity of 00:00: daily. [place] [facility] Branch losartan 50 2020-0 Yes 50mg Take 50 mg Univers mg tablet 9-21 by mouth ity of 00:00: daily. [place] [facility] Branch losartan 50 2020-0 Yes 50mg Take 50 mg Univers mg tablet 9-21 by mouth ity of 00:00: daily. [place] [facility] Branch losartan 50 2020-0 Yes 50mg Take 50 mg Univers mg tablet 9-21 by mouth ity of 00:00: daily. [place] [facility] Branch losartan 50 2020-0 Yes 50mg Take 50 mg Univers mg tablet 9-21 by mouth ity of 00:00: daily. [place] [facility] Branch losartan 50 2020-0 Yes 50mg Take 50 mg Univers mg tablet 9-21 by mouth ity of 00:00: daily. [place] [facility] Branch losartan 50 2020-0 Yes 50mg Take 50 mg Univers mg tablet 9-21 by mouth ity of 00:00: daily. [place] [facility] Branch losartan 50 2020-0 Yes 50mg Take 50 mg Univers mg tablet 9-21 by mouth ity of 00:00: daily. [place] [facility] Branch losartan 50 2020-0 Yes 50mg Take 50 mg Univers mg tablet 9-21 by mouth ity of 00:00: daily. [place] [facility] Branch losartan 50 2020-0 Yes 50mg Take 50 mg Univers mg tablet 9-21 by mouth ity of 00:00: daily. [place] [facility] Branch losartan 50 2020-0 Yes 50mg Take 50 mg Univers mg tablet 9-21 by mouth ity of 00:00: daily. [place] [facility] Branch losartan 50 2020-0 Yes 50mg Take 50 mg Univers mg tablet 9-21 by mouth ity of 00:00: daily. [place] [facility] Branch losartan 50 2020-0 Yes 50mg Take 50 mg Univers mg tablet 9-21 by mouth ity of 00:00: daily. [place] [facility] Branch losartan 50 2020-0 Yes 50mg Take 50 mg Univers mg tablet 9-21 by mouth ity of 00:00: daily. [place] [facility] Branch losartan 50 2020-0 Yes 50mg Take 50 mg Univers mg tablet 9-21 by mouth ity of 00:00: daily. [place] [facility] Branch losartan 50 2020-0 Yes 50mg Take 50 mg Univers mg tablet 9-21 by mouth ity of 00:00: daily. [place] [facility] Branch losartan 50 2020-0 Yes 50mg Take 50 mg Univers mg tablet 9-21 by mouth ity of 00:00: daily. [place] [facility] losartan 50 2020-0 Yes 50mg Take 50 mg Univers mg tablet 9-21 by mouth ity of 00:00: daily. [place] [facility] losartan 50 2020-0 Yes 50mg Take 50 mg Univers mg tablet 9-21 by mouth ity of 00:00: daily. [place] [facility] Branch losartan 50 2020-0 Yes 50mg Take 50 mg Univers mg tablet 9-21 by mouth ity of 00:00: daily. [place] [facility] losartan 50 2020-0 Yes 50mg Take 50 mg Univers mg tablet 9-21 by mouth ity of 00:00: daily. [place] [facility] losartan 50 2020-0 Yes 50mg Take 50 mg Univers mg tablet 9-21 by mouth ity of 00:00: daily. [place] [facility] Branch losartan 50 2020-0 Yes 50mg Take 50 mg Univers mg tablet 9-21 by mouth ity of 00:00: daily. [place] [facility] Branch losartan 50 2020-0 Yes 50mg Take 50 mg Univers mg tablet 9-21 by mouth ity of 00:00: daily. [place] [facility] losartan 50 2020-0 Yes 50mg Take 50 mg Univers mg tablet 9-21 by mouth ity of 00:00: daily. [place] [facility] losartan 50 2020-0 Yes 50mg Take 50 mg Univers mg tablet 9-21 by mouth ity of 00:00: daily. [place] [facility] losartan 50 2020-0 Yes 50mg Take 50 mg Univers mg tablet -21 by mouth ity of 00:00: daily. [place] [facility] losartan 50 2020-0 Yes 50mg Take 50 mg Univers mg tablet -21 by mouth ity of 00:00: daily. [place] [facility] losartan 50 2020-0 Yes 50mg Take 50 mg Univers mg tablet -21 by mouth ity of 00:00: daily. [place] [facility] losartan 50 2020-0 Yes 50mg Take 50 mg Univers mg tablet -21 by mouth ity of 00:00: daily. [place] [facility] losartan 50 2020-0 2021- No [...] TAKE 1 Univ ers 300 mg 8-12 10- CAPSULE BY ity of capsule 00:00: 00:00 [...] Medical times Branch daily. divalproex 2020-0 Yes [id number] 250mg Take 1 [facility] 250 mg EC 3-05 tablet by ity o f tablet 00:00: mouth [place] 00 every 12 Medical (twelve) Branch hours. divalproex 2020-0 Yes [id number] 250mg Take 1 [facility] 250 mg EC 3-05 tablet by ity o f tablet 00:00: mouth [place] 00 every 12 Medical (twelve) Branch hours. divalproex 2020-0 Yes [id number] 250mg Take 1 [facility] 250 mg EC 3-05 tablet by ity o f tablet 00:00: mouth [place] 00 every 12 Medical (twelve) Branch hours. divalproex 2020-0 Yes [id number] 250mg Take 1 [facility] 250 mg EC 3-05 tablet by ity o f tablet 00:00: mouth [place] 00 every 12 Medical (twelve) Branch hours. divalproex 2020-0 Yes [id number] 250mg Take 1 [facility] 250 mg EC 3-05 tablet by ity o f tablet 00:00: mouth [place] 00 every 12 Medical (twelve) Branch hours. divalproex 2020-0 Yes [id number] 250mg Take 1 [facility] 250 mg EC 2-28 tablet by ity o f tablet 00:00: mouth [place] 00 every 12 Medical (twelve) Branch hours. divalproex 2020-0 2020- No [id number] 250mg Take 1 [facility] 250 mg EC 2-28 03-05 tablet by ity of tablet 00:00: 00:00 mouth [place] 00 :00 every 12 Medical (twelve) Branch hours. divalproex 2020-0 2020- No [id number] 250mg Take 1 Univers 250 mg EC 2-28 03-05 tablet by ity of tablet 00:00: 00:00 mouth [place] 00 :00 every 12 Medical (twelve) Branch hours. divalproex 2020-0 2020- No [id number] 250mg Take 1 Univers 250 mg EC 2-28 03-05 tablet by ity of tablet 00:00: 00:00 mouth [place] 00 :00 every 12 Medical (twelve) Branch hours. divalproex 2020-0 2020- No [id number] 250mg Take 1 [facility] 250 mg EC 2-28 03-05 tablet by ity of tablet 00:00: 00:00 [facility] [place] 00 :00 every 12 Medical (twelve) Branch hours. pregabalin 2020-0 2020- No 75mg Take 75 mg Univers (LYRICA) 50 2-14 02-14 by mouth 2 i ty of mg capsule 16:39: 00:00 (two) [place] 16 :00 times Medical daily. Branch pregabalin 2020-0 2020- No 75mg Take 75 mg Univers (LYRICA) 50 2-14 02-14 by mouth 2 i ty of mg capsule 16:39: 00:00 (two) [place] 16 :00 times Medical daily. Branch divalproex 2020-0 Yes [id number] 125mg Take 1 Univers 125 mg EC 2-14 tablet by ity o f tablet 00:00: mouth [place] 00 every 12 Medical (twelve) Branch hours. divalproex 2020-0 Yes [id number] 125mg Take 1 Univers 125 mg EC 2-14 tablet by ity o f tablet 00:00: mouth [place] 00 every 12 Medical (twelve) Branch hours. divalproex 2020-0 Yes [id number] 125mg Take 1 [facility] 125 mg EC 2-14 tablet by ity o f tablet 00:00: mouth [place] 00 every 12 Medical (twelve) Branch hours. divalproex 2020-0 Yes [id number] 125mg Take 1 Univers 125 mg EC 2-14 tablet by ity o f tablet 00:00: mouth [place] 00 every 12 Medical (twelve) Branch hours. divalproex 2020-0 2020- No [id number] 125mg Take 1 Univers 125 mg EC 2-14 02-28 tablet by ity of tablet 00:00: 00:00 [...] 2-09 by mouth. ity of capsule 15:24: [address] dicyclomine 2018-02 Yes 10mg Take 10 mg Univers 10 mg 2-09 by mouth. ity of capsule 15:24: [address] dicyclomine 2018-02 Yes 10mg Take 10 mg Univers 10 mg 2-09 by mouth. ity of capsule 15:24: [address] dicyclomine 2018-02 Yes 10mg Take 10 mg Univers 10 mg 2-09 by mouth. ity of capsule 15:24: [address] dicyclomine 2018-02 Yes 10mg Take 10 mg Univers 10 mg 2-09 by mouth. ity of capsule 15:24: [address] dicyclomine 2018-02 Yes 10mg Take 10 mg Univers 10 mg 2-09 by mouth. ity of capsule 15:24: [address] dicyclomine 2018-02 Yes 10mg Take 10 mg Univers 10 mg 2-09 by mouth. ity of capsule 15:24: [address] dicyclomine 2018-02 Yes 10mg Take 10 mg Univers 10 mg 2-09 by mouth. ity of capsule 15:24: [address] dicyclomine 2018-02 Yes 10mg Take 10 mg Univers 10 mg 2-09 by mouth. ity of capsule 15:24: [address] dicyclomine 2018-02 Yes 10mg Take 10 mg Univers 10 mg 2-09 by mouth. ity of capsule 15:24: [address] dicyclomine 2018-02 Yes 10mg Take 10 mg Univers 10 mg 2-09 by mouth. ity of capsule 15:24: [address] dicyclomine 2018-02 Yes 10mg Take 10 mg Univers 10 mg 2-09 by mouth. ity of capsule 15:24: [address] dicyclomine 2018-02 Yes 10mg Take 10 mg Univers 10 mg 2-09 by mouth. ity of capsule 15:24: [address] dicyclomine 2018-02 Yes 10mg Take 10 mg Univers 10 mg 2-09 by mouth. ity of capsule 15:24: [address] dicyclomine 2018-02 Yes 10mg Take 10 mg Univers 10 mg 2-09 by mouth. ity of capsule 15:24: [address] dicyclomine 2018-02 Yes 10mg Take 10 mg Univers 10 mg 2-09 by mouth. ity of capsule 15:24: [address] dicyclomine 2018-02 Yes 10mg Take 10 mg Univers 10 mg 2-09 by mouth. ity of capsule 15:24: [address] dicyclomine 2018-02 Yes 10mg Take 10 mg Univers 10 mg 2-09 by mouth. ity of capsule 15:24: [address] dicyclomine 2018-02 Yes 10mg Take 10 mg Univers 10 mg 2-09 by mouth. ity of capsule 15:24: [address] dicyclomine 2018-02 Yes 10mg Take 10 mg Univers 10 mg 2-09 by mouth. ity of capsule 15:24: [address] dicyclomine 2018-02 Yes 10mg Take 10 mg Univers 10 mg 2-09 by mouth. ity of capsule 15:24: [address] dicyclomine 2018-02 Yes 10mg Take 10 mg Univers 10 mg 2-09 by mouth. ity of capsule 15:24: [address] dicyclomine 2018-02 Yes 10mg Take 10 mg Univers 10 mg 2-09 by mouth. ity of capsule 15:24: [address] dicyclomine 2018-02 Yes 10mg Take 10 mg Univers 10 mg 2-09 by mouth. ity of capsule 15:24: [address] dicyclomine 2018-02 Yes 10mg Take 10 mg Univers 10 mg 2-09 by mouth. ity of capsule 15:24: [address] dicyclomine 2018-02 Yes 10mg Take 10 mg Univers 10 mg 2-09 by mouth. ity of capsule 15:24: [address] dicyclomine 2018-02 Yes 10mg Take 10 mg Univers 10 mg 2-09 by mouth. ity of capsule 15:24: [address] dicyclomine 2018-02 Yes 10mg Take 10 mg Univers 10 mg 2-09 by mouth. ity of capsule 15:24: [address] dicyclomine 2018-02 Yes 10mg Take 10 mg Univers 10 mg 2-09 by mouth. ity of capsule 15:24: [address] dicyclomine 2018-02 Yes 10mg Take 10 mg Univers 10 mg 2-09 by mouth. ity of capsule 15:24: [address] dicyclomine 2018-02 Yes 10mg Take 10 mg Univers 10 mg 2-09 by mouth. ity of capsule 15:24: [address] dicyclomine 2018-02 Yes 10mg Take 10 mg Univers 10 mg 2-09 by mouth. ity of capsule 15:24: [address] ONDANSETRON 2018-02 Yes Take by Uni vers HCL (ZOFRAN 2-09 mouth. ity of ORAL) 15:22: [address] ONDANSETRON 2018-02 Yes Take by Uni vers HCL (ZOFRAN 2-09 mouth. ity of ORAL) 15:22: [address] 2018-02 Yes Take by Uni vers HCL (ZOFRAN 2-09 mouth. ity of ORAL) 15:22: [address] 2018-02 Yes Take by Uni vers HCL (ZOFRAN 2-09 mouth. ity of ORAL) 15:22: [address] ONDANSETRON 2018-02 Yes Take by Uni vers HCL (ZOFRAN 2-09 mouth. ity of ORAL) 15:22: [address] 2018-02 Yes Take by Uni vers HCL (ZOFRAN 2-09 mouth. ity of ORAL) 15:22: [address] 2018-02 Yes Take by Uni vers HCL (ZOFRAN 2-09 mouth. ity of ORAL) 15:22: [address] ONDANSETRON 2018-02 Yes Take by Uni vers HCL (ZOFRAN 2-09 mouth. ity of ORAL) 15:22: [address] ONDANSETRON 2018-02 Yes Take by Uni vers HCL (ZOFRAN 2-09 mouth. ity of ORAL) 15:22: [address] ONDANSETRON 2018-02 Yes Take by Uni vers HCL (ZOFRAN 2-09 mouth. ity of ORAL) 15:22: [address] ONDANSETRON 2018-02 Yes Take by Uni vers HCL (ZOFRAN 2-09 mouth. ity of ORAL) 15:22: [address] ONDANSETRON 2018-02 Yes Take by Uni vers HCL (ZOFRAN 2-09 mouth. ity of ORAL) 15:22: [address] ONDANSETRON 2018- Yes Take by Uni vers HCL (ZOFRAN 2-09 mouth. ity of ORAL) 15:22: [address] ONDANSETRON 2018- Yes Take by Uni vers HCL (ZOFRAN 2-09 mouth. ity of ORAL) 15:22: [address] ONDANSETRON 2018-02 Yes Take by Uni vers HCL (ZOFRAN 2-09 mouth. ity of ORAL) 15:22: [address] ONDANSETRON 2018-02 Yes Take by Uni vers HCL (ZOFRAN 2-09 mouth. ity of ORAL) 15:22: [address] 2018-02 Yes Take by Uni vers HCL (ZOFRAN 2-09 mouth. ity of ORAL) 15:22: [address] 2018-02 Yes Take by Uni vers HCL (ZOFRAN 2-09 mouth. ity of ORAL) 15:22: [address] 2018-02 Yes Take by Uni vers HCL (ZOFRAN 2-09 mouth. ity of ORAL) 15:22: [address] 2018-02 Yes Take by Uni vers HCL (ZOFRAN 2-09 mouth. ity of ORAL) 15:22: [address] 2018-02 Yes Take by Uni vers HCL (ZOFRAN 2-09 mouth. ity of ORAL) 15:22: [address] 2018-02 Yes Take by Uni vers HCL (ZOFRAN 2-09 mouth. ity of ORAL) 15:22: [address] 2018-02 Yes Take by Uni vers HCL (ZOFRAN 2-09 mouth. ity of ORAL) 15:22: [address] 2018-02 Yes Take by Uni vers HCL (ZOFRAN 2-09 mouth. ity of ORAL) 15:22: [address] ONDANSETRON 2018-02 Yes Take by Uni vers HCL (ZOFRAN 2-09 mouth. ity of ORAL) 15:22: [address] 2018-02 Yes Take by Uni vers [...] mg by ity of tablet 00:00: mouth daily. Medical Branch azaTHIOprin 2019-1 Yes 150mg Take 150 U nivers e 50 mg 2-02 mg by ity of tablet 00:00: mouth daily. Medical Branch azaTHIOprin 2019-1 Yes 150mg Take 150 U nivers e 50 mg 2-02 mg by ity of tablet 00:00: mouth [place] daily. Medical Branch azaTHIOprin 2019-1 Yes Univer s e 50 mg 2-02 ity of tablet 00:00: [place] 00 Medical Branch azaTHIOprin 2019-1 Yes Univer s e 50 mg 2-02 ity of tablet 00:00: [place] [address] Medical Branch azaTHIOprin 2019-1 Yes Univer s e 50 mg 2-02 ity of tablet 00:00: [place] [address] Medical Branch azaTHIOprin 2019-1 Yes Univer s e 50 mg 2-02 ity of tablet 00:00: [place] 00 Medical Branch azaTHIOprin 2019-1 Yes Univer s e 50 mg 2-02 ity of tablet 00:00: [place] [address] Medical Branch azaTHIOprin 2019-1 Yes Univer s e 50 mg 2-02 ity of tablet 00:00: [place] [address] Medical Branch azaTHIOprin 2019-1 Yes Univer s e 50 mg 2-02 ity of tablet 00:00: [place] [address] Medical Branch azaTHIOprin 2019-1 Yes Univer s e 50 mg 2-02 ity of tablet 00:00: [place] [address] Medical Branch azaTHIOprin 2019-1 Yes Univer s e 50 mg 2-02 ity of tablet 00:00: [place] 00 Medical Branch azaTHIOprin 2019-1 Yes Univer s e 50 mg 2-02 ity of tablet 00:00: [place] [address] Medical Branch azaTHIOprin 2019-1 Yes Univer s e 50 mg 2-02 ity of tablet 00:00: [place] [address] Medical Branch azaTHIOprin 2019-1 Yes Univer s e 50 mg 2-02 ity of tablet 00:00: [place] 00 Medical Branch azaTHIOprin 2019-1 Yes Univer s e 50 mg 2-02 ity of tablet 00:00: [place] [address] Medical Branch azaTHIOprin 2019-1 Yes Univer s e 50 mg 2-02 ity of tablet 00:00: [place] [address] Medical Branch azaTHIOprin 2019-1 Yes Univer s e 50 mg 2-02 ity of tablet 00:00: [place] [address] Medical Branch azaTHIOprin 2019-1 Yes Univer s e 50 mg 2-02 ity of tablet 00:00: [place] [address] Medical Branch azaTHIOprin 2019-1 Yes Univer s e 50 mg 2-02 ity of tablet 00:00: [place] [address] Medical Branch azaTHIOprin 2019-1 Yes Univer s e 50 mg 2-02 ity of tablet 00:00: [place] [address] Medical Branch azaTHIOprin 2019-1 Yes Univer s e 50 mg 2-02 ity of tablet 00:00: [place] [address] Medical Branch azaTHIOprin 2019-1 Yes Univer s e 50 mg 2-02 ity of tablet 00:00: [place] [address] Medical Branch azaTHIOprin 2019-1 Yes Univer s e 50 mg 2-02 ity of tablet 00:00: [place] [address] Medical Branch azaTHIOprin 2019-1 Yes Univer s e 50 mg 2-02 ity of tablet 00:00: [place] [address] Medical Branch azaTHIOprin 2019-1 Yes Univer s e 50 mg 2-02 ity of tablet 00:00: [place] [address] Medical Branch azaTHIOprin 2019-1 Yes Univer s e 50 mg 2-02 ity of tablet 00:00: [place] [address] Medical Branch azaTHIOprin 2019-1 Yes Univer s e 50 mg 2-02 ity of tablet 00:00: [place] [address] Medical Branch azaTHIOprin 2019-1 Yes Univer s e 50 mg 2-02 ity of tablet 00:00: [place] [address] Medical Branch azaTHIOprin 2019-1 Yes Univer s e 50 mg 2-02 ity of tablet 00:00: [place] [address] Medical Branch azaTHIOprin 2019-1 Yes Univer s e 50 mg 2-02 ity of tablet 00:00: [place] [address] Medical Branch azaTHIOprin 2019-1 Yes Univer s e 50 mg 2-02 ity of tablet 00:00: [place] [address] Medical Branch azaTHIOprin 2019-1 Yes Univer s e 50 mg 2-02 ity of tablet 00:00: [place] [address] Medical Branch azaTHIOprin 2019-1 Yes Univer s e 50 mg 2-02 ity of tablet 00:00: [place] [address] Medical Branch azaTHIOprin 2019-1 Yes Univer s e 50 mg 2-02 ity of tablet 00:00: [place] [address] Medical Branch azaTHIOprin 2019-1 Yes Univer s e 50 mg 2-02 ity of tablet 00:00: [place] 00 Medical Branch azaTHIOprin 2018-02- No 150mg Take 150 Univers e 50 mg 03-16 10-24 mg by ity of tablet 00:00: 00:00 mouth [place] 00 :00 daily. Medical Branch ibuprofen 2018-02 Yes [id number] 600mg Take 1 [facility] 600 mg 1-13 tablet by [facility] of tablet 00:00: mouth [place] 00 every 6 Medical (six) Branch hours as needed for Pain (scale 4-6). ibuprofen 2018-02 Yes [id number] 600mg Take 1 [facility] 600 mg 1-13 tablet by ity of tablet 00:00: mouth [place] 00 every 6 Medical (six) Branch hours as needed for Pain (scale 4-6). ibuprofen 2018-02 Yes [id number] 600mg Take 1 [facility] 600 mg 1-13 tablet by ity of tablet 00:00: mouth [place] 00 every 6 Medical (six) Branch hours as needed for Pain (scale 4-6). ibuprofen 2018-02 Yes [id number] 600mg Take 1 [facility] 600 mg 1-13 tablet by ity of tablet 00:00: mouth [place] 00 every 6 Medical (six) Branch hours as needed for Pain (scale 4-6). ibuprofen 2018-02 Yes [id number] 600mg Take 1 [facility] 600 mg 1-13 tablet by ity of tablet 00:00: mouth [place] 00 every 6 Medical (six) Branch hours as needed for Pain (scale 4-6). ibuprofen 2018-02 Yes [id number] 600mg Take 1 [facility] 600 mg 1-13 tablet by ity of tablet 00:00: mouth [place] 00 every 6 Medical (six) Branch hours as needed for Pain (scale 4-6). ibuprofen 2018-02 Yes [id number] 600mg Take 1 [facility] 600 mg 1-13 tablet by [facility]y of tablet 00:00: mouth [place] 00 every 6 Medical (six) Branch hours as needed for Pain (scale 4-6). ibuprofen 2018- Yes [id number] 600mg Take 1 [facility] 600 mg 1-13 tablet by ity of tablet 00:00: mouth [place] 00 every 6 Medical (six) Branch hours as needed for Pain (scale 4-6). ibuprofen 2018-02 Yes [id number] 600mg Take 1 [facility] 600 mg 1-13 tablet by ity of tablet 00:00: mouth [place] 00 every 6 Medical (six) Branch hours as needed for Pain (scale 4-6). ibuprofen 2018-02 Yes [id number] 600mg Take 1 [facility] 600 mg 1-13 tablet by ity of tablet 00:00: mouth [place] 00 every 6 Medical (six) Branch hours as needed for Pain (scale 4-6). ibuprofen 2018-02 Yes [id number] 600mg Take 1 [facility] 600 mg 1-13 tablet by ity of tablet 00:00: mouth [place] 00 every 6 Medical (six) Branch hours as needed for Pain (scale 4-6). ibuprofen 2018-02 Yes [id number] 600mg Take 1 [facility] 600 mg 1-13 tablet by ity of tablet 00:00: mouth [place] 00 every 6 Medical (six) Branch hours as needed for Pain (scale 4-6). ibuprofen 2018-02 Yes [id number] 600mg Take 1 [facility] 600 mg 1-13 tablet by ity of tablet 00:00: mouth [place] 00 every 6 Medical (six) Branch hours as needed for Pain (scale 4-6). ibuprofen 2018-02 Yes [id number] 600mg Take 1 [facility] 600 mg 1-13 tablet by ity of tablet 00:00: mouth [place] 00 every 6 Medical (six) Branch hours as needed for Pain (scale 4-6). ibuprofen 2018-02 Yes [id number] 600mg Take 1 [facility] 600 mg 1-13 tablet by ity of tablet 00:00: mouth [place] 00 every 6 Medical (six) Branch hours as needed for Pain (scale 4-6). ibuprofen 2018-02 Yes [id number] 600mg Take 1 [facility] 600 mg 1-13 tablet by ity of tablet 00:00: mouth [place] 00 every 6 Medical (six) Branch hours as needed for Pain (scale 4-6). ibuprofen 2018-02 Yes [id number] 600mg Take 1 [facility] 600 mg 1-13 tablet by ity of tablet 00:00: mouth [place] 00 every 6 Medical (six) Branch hours as needed for Pain (scale 4-6). ibuprofen 2018- Yes [id number] 600mg Take 1 [facility] 600 mg 1-13 tablet by ity of tablet 00:00: mouth [place] 00 every 6 Medical (six) Branch hours as needed for Pain (scale 4-6). ibuprofen 2018- Yes [id number] 600mg Take 1 [facility] 600 mg 1-13 tablet by ity of tablet 00:00: mouth [place] 00 every 6 Medical (six) Branch hours as needed for Pain (scale 4-6). ibuprofen 2018-02 Yes [id number] 600mg Take 1 [facility] 600 mg 1-13 tablet by ity of tablet 00:00: mouth [place] 00 every 6 Medical (six) Branch hours as needed for Pain (scale 4-6). ibuprofen 2018-02 Yes [id number] 600mg Take 1 [facility] 600 mg 1-13 tablet by ity of tablet 00:00: mouth [place] 00 every 6 Medical (six) Branch hours as needed for Pain (scale 4-6). ibuprofen 2018-02 Yes [id number] 600mg Take 1 [facility] 600 mg 1-13 tablet by ity of tablet 00:00: mouth [place] 00 every 6 Medical (six) Branch hours as needed for Pain (scale 4-6). ibuprofen 2018-02 Yes [id number] 600mg Take 1 [facility] 600 mg 1-13 tablet by ity of tablet 00:00: mouth [place] 00 every 6 Medical (six) Branch hours as needed for Pain (scale 4-6). ibuprofen 2018-02 Yes [id number] 600mg Take 1 [facility] 600 mg 1-13 tablet by ity of tablet 00:00: mouth [place] 00 every 6 Medical (six) Branch hours as needed for Pain (scale 4-6). ibuprofen 2018-02 Yes [id number] 600mg Take 1 [facility] 600 mg 1-13 tablet by ity of tablet 00:00: mouth [place] 00 every 6 Medical (six) Branch hours as needed for Pain (scale 4-6). ibuprofen 2018-02 Yes [id number] 600mg Take 1 [facility] 600 mg 1-13 tablet by ity of tablet 00:00: mouth [place] 00 every 6 Medical (six) Branch hours as needed for Pain (scale 4-6). ibuprofen 2018-02 Yes [id number] 600mg Take 1 [facility] 600 mg 1-13 tablet by ity of tablet 00:00: mouth [place] 00 every 6 Medical (six) Branch hours as needed for Pain (scale 4-6). ibuprofen 2018- Yes [id number] 600mg Take 1 [facility] 600 mg 1-13 tablet by ity of tablet 00:00: mouth [place] 00 every 6 Medical (six) Branch hours as needed for Pain (scale 4-6). ibuprofen 2018- Yes [id number] 600mg Take 1 [facility] 600 mg 1-13 tablet by ity of tablet 00:00: mouth [place] 00 every 6 Medical (six) Branch hours as needed for Pain (scale 4-6). ibuprofen 2018-02 Yes [id number] 600mg Take 1 [facility] 600 mg 1-13 tablet by ity of tablet 00:00: mouth [place] 00 every 6 Medical (six) Branch hours as needed for Pain (scale 4-6). ibuprofen 2018-02 Yes [id number] 600mg Take 1 [facility] 600 mg 1-13 tablet by ity of tablet 00:00: mouth [place] 00 every 6 Medical (six) Branch hours as needed for Pain (scale 4-6). ibuprofen 2018-02 Yes [id number] 600mg Take 1 [facility] 600 mg 1-13 tablet by ity of tablet 00:00: mouth [place] 00 every 6 Medical (six) Branch hours as needed for Pain (scale 4-6). ibuprofen 2018-02 Yes [id number] 600mg Take 1 [facility] 600 mg 1-13 tablet by ity of tablet 00:00: mouth [place] 00 every 6 Medical (six) Branch hours as needed for Pain (scale 4-6). ibuprofen 2018-02 Yes [id number] 600mg Take 1 [facility] 600 mg 1-13 tablet by ity of tablet 00:00: mouth [place] 00 every 6 Medical (six) Branch hours as needed for Pain (scale 4-6). ibuprofen 2018-02 Yes [id number] 600mg Take 1 [facility] 600 mg 1-13 tablet by ity of tablet 00:00: mouth [place] 00 every 6 Medical (six) Branch hours as needed for Pain (scale 4-6). ibuprofen 2018-02 Yes [id number] 600mg Take 1 [facility] 600 mg 1-13 tablet by ity of tablet 00:00: mouth [place] 00 every 6 Medical (six) Branch hours as needed for Pain (scale 4-6). ibuprofen 2018- Yes [id number] 600mg Take 1 [facility] 600 mg 1-13 tablet by ity of tablet 00:00: mouth [place] 00 every 6 Medical (six) Branch hours as needed for Pain (scale 4-6). ibuprofen 2018- Yes [id number] 600mg Take 1 [facility] 600 mg 1-13 tablet by ity of tablet 00:00: mouth [place] 00 every 6 Medical (six) Branch hours as needed for Pain (scale 4-6). ibuprofen 2018-1 Yes [id number] 600mg Take 1 [facility] 600 mg 1-13 tablet by ity of tablet 00:00: mouth [place] 00 every 6 Medical (six) Branch hours as needed for Pain (scale 4-6). ibuprofen 2018-02 Yes [id number] 600mg Take 1 [facility] 600 mg 1-13 tablet by ity of tablet 00:00: mouth [place] 00 every 6 Medical (six) Branch hours as needed for Pain (scale 4-6). ibuprofen 2018-02 Yes [id number] 600mg Take 1 [facility] 600 mg 1-13 tablet by ity of tablet 00:00: mouth [place] 00 every 6 Medical (six) Branch hours as needed for Pain (scale 4-6). ibuprofen 2018-02 Yes [id number] 600mg Take 1 [facility] 600 mg 1-13 tablet by ity of tablet 00:00: mouth [place] 00 every 6 Medical (six) Branch hours as needed for Pain (scale 4-6). ibuprofen 2018-02 Yes [id number] 600mg Take 1 [facility] 600 mg 1-13 tablet by ity of tablet 00:00: mouth [place] 00 every 6 Medical (six) Branch hours as needed for Pain (scale 4-6). ibuprofen 2018-02 Yes [id number] 600mg Take 1 [facility] 600 mg 1-13 tablet by ity of tablet 00:00: mouth [place] 00 every 6 Medical (six) Branch hours as needed for Pain (scale 4-6). ibuprofen 2018-02 Yes [id number] 600mg Take 1 [facility] 600 mg 1-13 tablet by ity of tablet 00:00: mouth [place] 00 every 6 Medical (six) Branch hours as needed for Pain (scale 4-6). ibuprofen 2018-02 Yes [id number] 600mg Take 1 [facility] 600 mg 1-13 tablet by ity of tablet 00:00: mouth [place] 00 every 6 Medical (six) Branch hours as needed for Pain (scale 4-6). ibuprofen 2018-02 Yes [id number] 600mg Take 1 [facility] 600 mg 1-13 tablet by ity of tablet 00:00: mouth [place] 00 every 6 Medical (six) Branch hours as needed for Pain (scale 4-6). ibuprofen 2018-02 Yes [id number] 600mg Take 1 [facility] 600 mg 1-13 tablet by ity of tablet 00:00: mouth [place] 00 every 6 Medical (six) Branch hours as needed for Pain (scale 4-6). ibuprofen 2018-02 Yes [id number] 600mg Take 1 [facility] 600 mg 1-13 tablet by ity of tablet 00:00: mouth [place] 00 every 6 Medical (six) Branch hours as needed for Pain (scale 4-6). ibuprofen 2018- Yes [id number] 600mg Take 1 [facility] 600 mg 1-13 tablet by ity of tablet 00:00: mouth [place] 00 every 6 Medical (six) Branch hours as needed for Pain (scale 4-6). ibuprofen 2018-02 Yes [id number] 600mg Take 1 [facility] 600 mg 1-13 tablet by ity of tablet 00:00: mouth [place] 00 every 6 Medical (six) Branch hours as needed for Pain (scale 4-6). ibuprofen 2018-02 Yes [id number] 600mg Take 1 [facility] 600 mg 1-13 tablet by ity of tablet 00:00: mouth [place] 00 every 6 Medical (six) Branch hours as needed for Pain (scale 4-6). ibuprofen 2018-02 Yes [id number] 600mg Take 1 [facility] 600 mg 1-13 tablet by ity of tablet 00:00: mouth [place] 00 every 6 Medical (six) Branch hours as needed for Pain (scale 4-6). ibuprofen 2018-02 Yes [id number] 600mg Take 1 [facility] 600 mg 1-13 tablet by ity of tablet 00:00: mouth [place] 00 every 6 Medical (six) Branch hours as needed for Pain (scale 4-6). ibuprofen 2018-02 Yes [id number] 600mg Take 1 [facility] 600 mg 1-13 tablet by ity of tablet 00:00: mouth [place] 00 every 6 Medical (six) Branch hours as needed for Pain (scale 4-6). ibuprofen 2018-02 Yes [id number] 600mg Take 1 [facility] 600 mg 1-13 tablet by ity of tablet 00:00: mouth [place] 00 every 6 Medical (six) Branch hours as needed for Pain (scale 4-6). ibuprofen 2018- Yes [id number] 600mg Take 1 [facility] 600 mg 1-13 tablet by ity of tablet 00:00: mouth [place] 00 every 6 Medical (six) Branch hours as needed for Pain (scale 4-6). ibuprofen 2018- Yes [id number] 600mg Take 1 [facility] 600 mg 1-13 tablet by ity of tablet 00:00: mouth [place] 00 every 6 Medical (six) Branch hours as needed for Pain (scale 4-6). ibuprofen 2018-02- No [id number] 600mg Take 1 [facility] 600 mg 1-13 10-24 tablet by ity of tablet 00:00: 00:00 mouth [place] 00 :00 every 6 Medical (six) Branch hours as needed for Pain (scale 4-6). cyclobenzap 2018-02- No [id number] 10mg Take 1 [facility] rine 10 mg - 02-14 tablet by ity of tablet 00:00: 00:00 mouth 3 [place] 00 :00 (three) Medical times Branch daily. cyclobenzap 2018-02- No [id number] 10mg Take 1 [facility] rine 10 mg - 02-14 tablet by ity of tablet 00:00: 00:00 mouth 3 [place] 00 :00 (three) Medical times Branch daily. azaTHIOprin 2018- Yes 150mg QD Take [address] (IMURAN) 9-14 mg by [facility] mg 12:13: mouth Medical tablet 12 daily. Center dicyclomine 2018- Yes 10mg Q.00021234 Take [address] [facility] (BENTYL) 10 9-14 [id number] by mouth 3 [facility] capsule 12:13: 3D (three) Medi bernadine 12 times Center daily. ondansetron 2018- Yes 4mg Take [address] (ZOFRAN-ODT 9-14 by mouth [facility] ) 4 MG 12:13: every 8 Medical disintegrat 12 (eight) Cente r ing tablet hours as needed for Nausea. promethazin 2018- Yes 25mg Take [address] [facility] 9-14 by [facility] (PHENERGAN) 12:13: every 6 Med ical 25 MG 12 (six) Center tablet hours as needed for Nausea. HYDROcodone 2019-0 Yes 1{tbl} Q.5D Take [address] -acetaminop 9-14 tablet by [facility] (NORCO 12:13: mouth 2 Medi bernadine 7.5-325) 12 (two) Center 7.5-325 mg times per tablet daily. pregabalin 2019-0 Yes 300mg QD Take [address] (LYRICA) 9-14 mg by [facility] 300 MG 12:13: mouth Medical capsule 12 nightly. Center pregabalin 2019-0 Yes 75mg Q.5D Take [address] (LYRICA) 75 9-14 by mouth 2 Giselle kes MG capsule 12:13: (two) Medica l 12 times Center daily. buprenorphi [address] [facility] ne HCl 9-14 mcg inside [facility] (BELBUCA) 12:13: cheek 2 Medic al 150 mcg 12 (two) Center Film times daily. pantoprazol Yes 40mg QD Take [address] [facility] 9-14 by mouth [facility] (PROTONIX) 12:13: daily. Medic al 40 MG 12 Center tablet mesalamine Yes 1000mg Q.5D Take 1,[address] [facility] (PENTASA) 9-14 mg by [facility] 500 MG CR 12:13: mouth 2 Medic al capsule 12 (two) Center times daily. lidocaine Yes 2{patch Q24H Place [address] (LIDODERM) 9-14 } patches [facility] 5 % patch 00:00: onto the [facility] bernadine 00 skin daily Center Remove & Discard patch within 12 hours. May cut if necessary. LORazepam Yes .5mg Take [address] [facility] [address] (ATIVAN) 9-14 tablet [facility] 0.5 MG 00:00: (0.5 mg Medical tablet 00 total) by Center mouth every night as needed for Anxiety. Max Daily Amount: 0.5 mg Bactrim DS Bactrim DS 2018- No [facility] 1 tablet Common 08-24 [facility] 00:00: 00:00 - [facility] 00 :00 [facility] Pyridium Pyridium 2017- No [facility] 1 tablet Common 08-24 [facility] 00:00: 00:00 meals - [facility] 00 :00 [facility] hydrOXYzine 2020- No TAKE 1 Uni [...] HOURS Branch NEEDED FOR ANXIETY sodium,pota Yes [id number] Please see [facility] 6-16 instructio ity of sulfates 00:00: ns [place] (SUPREP 00 provided. Medical BOWEL PREP Branch KIT) 17.5-3.13-1 .6 gram SolR sodium,pota 2016-0 Yes [id number] Please see [facility] 6-16 instructio ity of sulfates 00:00: ns [place] (SUPREP 00 provided. Medical BOWEL PREP Branch KIT) 17.5-3.13-1 .6 gram SolR sodium,pota 2016-0 Yes [id number] Please see [facility] 6-16 instructio ity of sulfates 00:00: ns [place] (SUPREP 00 provided. Medical BOWEL PREP Branch KIT) 17.5-3.13-1 .6 gram SolR sodium,pota 2016-0 Yes [id number] Please see [facility] 6-16 instructio ity of sulfates 00:00: ns [place] (SUPREP 00 provided. Medical BOWEL PREP Branch KIT) 17.5-3.13-1 .6 gram SolR sodium,pota 2016-0 Yes [id number] Please see [facility] 6-16 instructio ity of sulfates 00:00: ns [place] (SUPREP 00 provided. Medical BOWEL PREP Branch KIT) 17.5-3.13-1 .6 gram SolR sodium,pota 2016-0 Yes [id number] Please see [facility] 6-16 instructio ity of sulfates 00:00: ns [place] (SUPREP 00 provided. Medical BOWEL PREP Branch KIT) 17.5-3.13-1 .6 gram SolR sodium,pota 2016-0 Yes [id number] Please see [facility] 616 instructio ity of sulfates 00:00: ns [place] (SUPREP 00 provided. Medical BOWEL PREP Branch KIT) 17.5-3.13-1 .6 gram SolR sodium,pota 2016-0 Yes [id number] Please see [facility] 6-16 instructio ity of sulfates 00:00: ns [place] (SUPREP 00 provided. Medical BOWEL PREP Branch KIT) 17.5-3.13-1 .6 gram SolR sodium,pota 2016-0 Yes [id number] Please see [facility] 6-16 instructio ity of sulfates 00:00: ns [place] (SUPREP 00 provided. Medical BOWEL PREP Branch KIT) 17.5-3.13-1 .6 gram SolR sodium,pota 2016-0 Yes [id number] Please see [facility] 6-16 instructio ity of sulfates 00:00: [facility] (SUPREP 00 provided. Medical BOWEL PREP Branch KIT) 17.5-3.13-1 .6 gram SolR sodium,pota 2016-0 Yes [id number] Please see [facility] 6-16 instructio ity of sulfates 00:00: [facility] (SUPREP 00 provided. Medical BOWEL PREP Branch KIT) 17.5-3.13-1 .6 gram SolR sodium,pota 2016-0 Yes [id number] Please see [facility] 6-16 instructio ity of sulfates 00:00: [facility] (SUPREP 00 provided. Medical BOWEL PREP Branch KIT) 17.5-3.13-1 .6 gram SolR sodium,pota 2016-0 Yes [id number] Please see [facility] 6-16 instructio ity of sulfates 00:00: [facility] (SUPREP 00 provided. Medical BOWEL PREP Branch KIT) 17.5-3.13-1 .6 gram SolR sodium,pota 2016-0 Yes [id number] Please see [facility] 6-16 instructio ity of sulfates 00:00: [facility] (SUPREP 00 provided. Medical BOWEL PREP Branch KIT) 17.5-3.13-1 .6 gram SolR sodium,pota 2016-0 Yes [id number] Please see [facility] 616 instructio ity of sulfates 00:00: [facility] (SUPREP 00 provided. Medical BOWEL PREP Branch KIT) 17.5-3.13-1 .6 gram SolR sodium,pota 2016-0 Yes [id number] Please see [facility] 6-16 instructio ity of sulfates 00:00: [facility] (SUPREP 00 provided. Medical BOWEL PREP Branch KIT) 17.5-3.13-1 .6 gram SolR sodium,pota 2016-0 Yes [id number] Please see [facility] 616 instructio ity of sulfates 00:00: [facility] (SUPREP 00 provided. Medical BOWEL PREP Branch KIT) 17.5-3.13-1 .6 gram SolR sodium,pota 2016-0 Yes [id number] Please see [facility] 6-16 instructio ity of sulfates 00:00: ns [place] (SUPREP 00 provided. Medical BOWEL PREP Branch KIT) 17.5-3.13-1 .6 gram SolR sodium,pota 2016-0 Yes [id number] Please see [facility] 6-16 instructio ity of sulfates 00:00: ns [place] (SUPREP 00 provided. Medical BOWEL PREP Branch KIT) 17.5-3.13-1 .6 gram SolR sodium,pota 2016-0 Yes [id number] Please see [facility] 6-16 instructio ity of sulfates 00:00: [facility] (SUPREP 00 provided. Medical BOWEL PREP Branch KIT) 17.5-3.13-1 .6 gram SolR sodium,pota 2016-0 Yes [id number] Please see [facility] 6-16 instructio ity of sulfates 00:00: [facility] (SUPREP 00 provided. Medical BOWEL PREP Branch KIT) 17.5-3.13-1 .6 gram SolR sodium,pota 2016-0 Yes [id number] Please see [facility] 6-16 instructio ity of sulfates 00:00: [facility] (SUPREP 00 provided. Medical BOWEL PREP Branch KIT) 17.5-3.13-1 .6 gram SolR sodium,pota 2016-0 Yes [id number] Please see [facility] 6-16 instructio ity of sulfates 00:00: [facility] (SUPREP 00 provided. Medical BOWEL PREP Branch KIT) 17.5-3.13-1 .6 gram SolR sodium,pota 2016-0 Yes [id number] Please see [facility] 6-16 instructio ity of sulfates 00:00: [facility] (SUPREP 00 provided. Medical BOWEL PREP Branch KIT) 17.5-3.13-1 .6 gram SolR sodium,pota 2016-0 Yes [id number] Please see [facility] 6-16 instructio ity of sulfates 00:00: ns [place] (SUPREP 00 provided. Medical BOWEL PREP Branch KIT) 17.5-3.13-1 .6 gram SolR sodium,pota 2016-0 Yes [id number] Please see [facility] 6-16 instructio ity of sulfates 00:00: ns [place] (SUPREP 00 provided. Medical BOWEL PREP Branch KIT) 17.5-3.13-1 .6 gram SolR sodium,pota 2016-0 Yes [id number] Please see [facility] 616 instructio ity of sulfates 00:00: ns [place] (SUPREP 00 provided. Medical BOWEL PREP Branch KIT) 17.5-3.13-1 .6 gram SolR sodium,pota 2016- Yes [id number] Please see [facility] 616 instructio ity of sulfates 00:00: ns [place] (SUPREP 00 provided. Medical BOWEL PREP Branch KIT) 17.5-3.13-1 .6 gram SolR sodium,pota 2016- Yes [id number] Please see [facility] 616 instructio ity of sulfates 00:00: ns [place] (SUPREP 00 provided. Medical BOWEL PREP Branch KIT) 17.5-3.13-1 .6 gram SolR sodium,pota 2016- Yes [id number] Please see [facility] 616 instructio ity of sulfates 00:00: ns [place] (SUPREP 00 provided. Medical BOWEL PREP Branch KIT) 17.5-3.13-1 .6 gram SolR sodium,pota 2016-0 Yes [id number] Please see [facility] 616 instructio ity of sulfates 00:00: ns [place] (SUPREP 00 provided. Medical BOWEL PREP Branch KIT) 17.5-3.13-1 .6 gram SolR sodium,pota 2016- Yes [id number] Please see [facility] 616 instructio ity of sulfates 00:00: ns [place] (SUPREP 00 provided. Medical BOWEL PREP Branch KIT) 17.5-3.13-1 .6 gram SolR sodium,pota 2016-0 Yes [id number] Please see [facility] 616 instructio ity of sulfates 00:00: ns [place] (SUPREP 00 provided. Medical BOWEL PREP Branch KIT) 17.5-3.13-1 .6 gram SolR sodium,pota 2016-0 2021- No [id number] Please see [facility] 616 04-18 instructio ity of sulfates 00:00: 00:00 [facility] (SUPREP 00 :00 provided. Medical BOWEL PREP Branch KIT) 17.5-3.13-1 .6 gram SolR buprenorphi 2019- No 15ug Apply 15 U nivers ne -27 02-14 mcg to ity of (BUTRANS) 00:00: 00:00 skin every [place] 15 mcg/hour 00 :00 24 Medical PTWK (twenty-fo Branch ur) hours. buprenorphi 2019- No 15ug Apply 15 U nivers ne - 02-14 mcg to ity of (BUTRANS) 00:00: 00:00 skin every [place] 15 mcg/hour 00 :00 24 Medical PTWK (twenty-fo Branch ur) hours. ondansetron Yes Univer s (ZOFRAN) 4 5-18 ity of mg tablet 00:00: [place] [facility] Branch ondansetron 0 Yes Univer s (ZOFRAN) 4 5-18 ity of mg tablet 00:00: [place] [facility] ondansetron 0 Yes Univer s (ZOFRAN) 4 5-18 ity of mg tablet 00:00: [place] [facility] ondansetron 0 Yes Univer s (ZOFRAN) 4 5-18 ity of mg tablet 00:00: [place] [facility] ondansetron 0 Yes Univer s (ZOFRAN) 4 5-18 ity of mg tablet 00:00: [place] [facility] ondansetron 2016-0 Yes Univer s (ZOFRAN) 4 5-18 ity of mg tablet 00:00: [place] [facility] ondansetron 20160 Yes Univer s (ZOFRAN) 4 5-18 ity of mg tablet 00:00: [place] [facility] ondansetron 2016-0 Yes Univer s (ZOFRAN) 4 5-18 ity of mg tablet 00:00: [place] [facility] ondansetron 2016-0 Yes Univer s (ZOFRAN) 4 5-18 ity of mg tablet 00:00: [place] [facility] ondansetron 2015-0 Yes Univer s [...] tablet 00:00: [place] 00 Medical Branch ondansetron 20160 Yes Univer s (ZOFRAN) 4 5-18 ity of mg tablet 00:00: [place] 00 Medical Branch ondansetron 0 Yes Univer s (ZOFRAN) 4 5-18 ity of mg tablet 00:00: [place] 00 Medical Branch ondansetron 20160 Yes Univer s (ZOFRAN) 4 5-18 ity of mg tablet 00:00: [place] 00 Medical Branch ondansetron 0 Yes Univer s (ZOFRAN) 4 5-18 ity of mg tablet 00:00: [place] 00 Medical Branch ondansetron 20160 Yes Univer s (ZOFRAN) 4 5-18 ity of mg tablet 00:00: [place] 00 Medical Branch ondansetron 0 Yes Univer s (ZOFRAN) 4 5-18 ity of mg tablet 00:00: [place] 00 Medical Branch ondansetron 0 2021- No Unive rs (ZOFRAN) 4 5-18 04-14 ity of mg tablet 00:00: 00:00 [place] 00 :00 Medical Branch LYRICA 75 0 2020- No Univers mg capsule 5-18 02-14 ity of 00:00: 00:00 [place] 00 :00 Medical Branch LYRICA 75 0 2020- No Univers mg capsule -18 02-14 ity of 00:00: 00:00 [place] 00 :00 Medical Branch mesalamine 0 Yes 1000mg Take 2 Uni [...] Medical capsule times Branch daily. mesalamine 2016-0 2020- No 1000mg Take 2 Un matt CR 5-17 04-18 capsules ity of (PENTASA) 00:00: 00:00 by mouth 4 [place] 500 mg CR 00 :00 (four) Medical capsule times Branch daily. HYDROcodone 2015-0 2020- No 1{tbl} Take 1 U nivers [...] mg 24 00:00: daily. [place] hr capsule [facility] tamsulosin 2014-02 Yes .4mg Take 1 Cap U nivers (FLOMAX) 0-20 by mouth ity of 0.4 mg 24 00:00: daily. [place] hr capsule [facility] tamsulosin 2014-02 Yes .4mg Take 1 Cap U nivers (FLOMAX) 0-20 by mouth ity of 0.4 mg 24 00:00: daily. [place] hr capsule [facility] tamsulosin 2014-02 Yes .4mg Take 1 Cap U nivers (FLOMAX) 0-20 by mouth ity of 0.4 mg 24 00:00: daily. [place] hr capsule [facility] tamsulosin 2014-02 Yes .4mg Take 1 Cap U nivers (FLOMAX) 0-20 by mouth ity of 0.4 mg 24 00:00: daily. [place] hr capsule [facility] tamsulosin 2014-02 Yes .4mg Take 1 Cap U nivers (FLOMAX) 0-20 by mouth ity of 0.4 mg 24 00:00: daily. [place] hr capsule [facility] tamsulosin 2014-02 Yes .4mg Take 1 Cap U nivers (FLOMAX) 0-20 by mouth ity of 0.4 mg 24 00:00: daily. [place] hr capsule [facility] tamsulosin 2014-02 Yes .4mg Take 1 Cap U nivers (FLOMAX) 0-20 by mouth ity of 0.4 mg 24 00:00: daily. [place] hr capsule [facility] tamsulosin 2014-02 Yes .4mg Take 1 Cap U nivers (FLOMAX) 0-20 by mouth ity of 0.4 mg 24 00:00: daily. [facility] capsule [facility] tamsulosin 2014-02 Yes .4mg Take 1 Cap U nivers (FLOMAX) 0-20 by mouth ity of 0.4 mg 24 00:00: daily. [facility] capsule [facility] tamsulosin 2014-02 Yes .4mg Take 1 Cap U nivers (FLOMAX) 0-20 by mouth ity of 0.4 mg 24 00:00: daily. [facility] capsule [facility] tamsulosin 2014-02 Yes .4mg Take 1 Cap U nivers (FLOMAX) 0-20 by mouth ity of 0.4 mg 24 00:00: daily. [facility] capsule [facility] tamsulosin 2014-02 Yes .4mg Take 1 Cap U nivers (FLOMAX) 0-20 by mouth ity of 0.4 mg 24 00:00: daily. [facility] tamsulosin 2014-02 Yes .4mg Take 1 Cap U nivers (FLOMAX) 0-20 by mouth ity of 0.4 mg 24 00:00: daily. [facility] capsule [facility] tamsulosin 2014-02 Yes .4mg Take 1 Cap U nivers (FLOMAX) 0-20 by mouth ity of 0.4 mg 24 00:00: daily. [facility] capsule [facility] tamsulosin 2014-02 Yes .4mg Take 1 Cap U nivers (FLOMAX) 0-20 by mouth ity of 0.4 mg 24 00:00: daily. [facility] capsule [facility] tamsulosin 2014-02 Yes .4mg Take 1 Cap U nivers (FLOMAX) 0-20 by mouth ity of 0.4 mg 24 00:00: daily. [facility] capsule [facility] tamsulosin 2014-02 Yes .4mg Take 1 Cap U nivers (FLOMAX) 0-20 by mouth ity of 0.4 mg 24 00:00: daily. [facility] capsule [facility] tamsulosin 2014-02 Yes .4mg Take 1 Cap U nivers (FLOMAX) 0-20 by mouth ity of 0.4 mg 24 00:00: daily. [facility] capsule [facility] tamsulosin 2014-02 Yes .4mg Take 1 Cap U nivers (FLOMAX) 0-20 by mouth ity of 0.4 mg 24 00:00: daily. [place] capsule [facility] tamsulosin 2014-02 Yes .4mg Take 1 Cap U nivers (FLOMAX) 0-20 by mouth ity of 0.4 mg 24 00:00: daily. [place] capsule [facility] tamsulosin 2014-02 Yes .4mg Take 1 Cap U nivers (FLOMAX) 0-20 by mouth ity of 0.4 mg 24 00:00: daily. [place] capsule [facility] tamsulosin 2014-02 Yes .4mg Take 1 Cap U nivers (FLOMAX) 0-20 by mouth ity of 0.4 mg 24 00:00: daily. [place] capsule [facility] tamsulosin 2014-02 Yes .4mg Take 1 Cap U nivers (FLOMAX) 0-20 by mouth ity of 0.4 mg 24 00:00: daily. [place] capsule [facility] tamsulosin 2014-02 Yes .4mg Take 1 Cap U nivers (FLOMAX) 0-20 by mouth ity of 0.4 mg 24 00:00: daily. [place] capsule [facility] tamsulosin 2014-02 Yes .4mg Take 1 Cap U nivers (FLOMAX) 0-20 by mouth ity of 0.4 mg 24 00:00: daily. [place] capsule [facility] tamsulosin 2014-02 Yes .4mg Take 1 Cap U nivers (FLOMAX) 0-20 by mouth ity of 0.4 mg 24 00:00: daily. [place] capsule [facility] tamsulosin 2014-02 Yes .4mg Take 1 Cap U nivers (FLOMAX) 0-20 by mouth ity of 0.4 mg 24 00:00: daily. [place] capsule [facility] tamsulosin 2014-02- No .4mg Take 1 Cap Univers (FLOMAX) 0-20 04- by mouth ity of 0.4 mg 24 00:00: 00:00 daily. [facility] capsule 00 : [facility] [place] Yes Levy 1 tablet Common Hernandez as needed [facility] Amitriptyli Amitriptyli Yes Levy 1 tablet Common ne HCl ne HCl [facility] Zofran Zofran Yes Levy 2 tablets Comm on [facility] Pentasa Pentasa Yes Levy 2 capsules C ommon [facility] Lydorenea Lydorenea Yes Levy 1 capsule Comm on Hernandez 1 to 3 [facility] before [facility] bedtime in [facility] Immunizations Ordered Filled Immunization Date Status Comments Sour e Immunization Name Name Twinrix (hep a/hep 2015-07-29 Completed Univer sity of b) 00:00:00 [facility] Twinrix (hep a/hep 2015-07-29 Completed Univer sity of b) 00:00:00 [facility] Twinrix (hep a/hep 2015-07-29 Completed Univer sity of b) 00:00:00 [facility] Twinrix (hep a/hep 2015-07-29 Completed Univer sity of b) 00:00:00 [facility] Twinrix (hep a/hep 2015-07-29 Completed Univer sity of b) 00:00:00 [facility] Twinrix (hep a/hep 2015-07-29 Completed Univer sity of b) 00:00:00 [facility] Twinrix (hep a/hep 2015-07-29 Completed Univer sity of b) 00:00:00 [facility] Twinrix (hep a/hep 2015-07-29 Completed Univer sity of b) 00:00:00 [facility] Twinrix (hep a/hep 2015-07-29 Completed Univer sity of b) 00:00:00 [facility] Twinrix (hep a/hep 2015-07-29 Completed Univer sity of b) 00:00:00 [facility] Twinrix (hep a/hep 2015-07-29 Completed Univer sity of b) 00:00:00 [facility] Twinrix (hep a/hep 2015-07-29 Completed Univer sity of b) 00:00:00 [facility] Twinrix (hep a/hep 2015-07-29 Completed Univer sity of b) 00:00:00 [facility] Twinrix (hep a/hep 2015-07-29 Completed Univer sity of b) 00:00:00 [facility] Twinrix (hep a/hep 2015-07-29 Completed Univer sity of b) 00:00:00 [facility] Twinrix (hep a/hep 2015-07-29 Completed Univer sity of b) 00:00:00 [facility] Twinrix (hep a/hep 2015-07-29 Completed Univer sity of b) 00:00:00 [facility] Twinrix (hep a/hep 2015-07-29 Completed Univer sity of b) 00:00:00 [facility] Twinrix (hep a/hep 2015-07-29 Completed Univer sity of b) 00:00:00 [facility] Twinrix (hep a/hep 2015-07-29 Completed Univer sity of b) 00:00:00 [facility] Twinrix (hep a/hep 2015-07-29 Completed Univer sity of b) 00:00:00 [facility] Twinrix (hep a/hep 2015-07-29 Completed Univer sity of b) 00:00:00 [facility] Twinrix (hep a/hep 2015-07-29 Completed Univer sity of b) 00:00:00 [facility] Twinrix (hep a/hep 2015-07-29 Completed Univer sity of b) 00:00:00 [facility] Twinrix (hep a/hep 2015-07-29 Completed Univer sity of b) 00:00:00 [facility] Twinrix (hep a/hep 2015-07-29 Completed Univer sity of b) 00:00:00 [facility] Twinrix (hep a/hep 2015-07-29 Completed Univer sity of b) 00:00:00 [facility] Twinrix (hep a/hep 2015-07-29 Completed Univer sity of b) 00:00:00 [facility] Twinrix (hep a/hep 2015-07-29 Completed Univer sity of b) 00:00:00 [facility] Twinrix (hep a/hep 2015-07-29 Completed Univer sity of b) 00:00:00 [facility] Twinrix (hep a/hep 2015-07-29 Completed Univer sity of b) 00:00:00 [facility] Twinrix (hep a/hep 2015-07-29 Completed Univer sity of b) 00:00:00 [facility] Twinrix (hep a/hep 2015-07-29 Completed Univer sity of b) 00:00:00 [facility] Twinrix (hep a/hep 2015-07-29 Completed Univer sity of b) 00:00:00 [facility] Twinrix (hep a/hep 2015-07-29 Completed Univer sity of b) 00:00:00 [facility] Twinrix (hep a/hep 2015-07-29 Completed Univer sity of b) 00:00:00 [facility] Twinrix (hep a/hep 2015-07-29 Completed Univer sity of b) 00:00:00 [facility] Twinrix (hep a/hep 2015-07-29 Completed Univer sity of b) 00:00:00 [facility] Twinrix (hep a/hep 2015-07-29 Completed Univer sity of b) 00:00:00 [facility] Twinrix (hep a/hep 2015-07-29 Completed Univer sity of b) 00:00:00 [facility] Twinrix (hep a/hep 2015-07-29 Completed Univer sity of b) 00:00:00 [facility] Twinrix (hep a/hep 2015-07-29 Completed Univer sity of b) 00:00:00 [facility] Twinrix (hep a/hep 2015-07-29 Completed Univer sity of b) 00:00:00 [facility] Twinrix (hep a/hep 2015-07-29 Completed Univer sity of b) 00:00:00 [facility] Twinrix (hep a/hep 2015-07-29 Completed Univer sity of b) 00:00:00 [facility] Twinrix (hep a/hep 2015-07-29 Completed Univer sity of b) 00:00:00 [facility] Twinrix (hep a/hep 2015-07-29 Completed Univer sity of b) 00:00:00 [facility] Twinrix (hep a/hep 2015-07-29 Completed Univer sity of b) 00:00:00 [facility] Twinrix (hep a/hep 2015-07-29 Completed Univer sity of b) 00:00:00 [facility] Twinrix (hep a/hep 2015-07-29 Completed Univer sity of b) 00:00:00 [facility] Twinrix (hep a/hep 2015-07-29 Completed Univer sity of b) 00:00:00 [facility] Twinrix (hep a/hep 2015-07-29 Completed Univer sity of b) 00:00:00 [facility] Twinrix (hep a/hep 2015-07-29 Completed Univer sity of b) 00:00:00 [facility] Twinrix (hep a/hep 2015-07-29 Completed Univer sity of b) 00:00:00 [facility] Twinrix (hep a/hep 2015-07-29 Completed Univer sity of b) 00:00:00 [facility] Twinrix (hep a/hep 2015-07-29 Completed Univer sity of b) 00:00:00 [facility] Twinrix (hep a/hep 2015-07-29 Completed Univer sity of b) 00:00:00 [facility] Twinrix (hep a/hep 2015-07-29 Completed Univer sity of b) 00:00:00 [facility] Twinrix (hep a/hep 2015-07-29 Completed Univer sity of b) 00:00:00 [facility] Twinrix (hep a/hep 2015-07-29 Completed Univer sity of b) 00:00:00 [facility] Twinrix (hep a/hep 2015-07-29 Completed Univer sity of b) 00:00:00 [facility] Twinrix (hep a/hep 2015-07-29 Completed Univer sity of b) 00:00:00 [facility] Twinrix (hep a/hep 2015-07-29 Completed Univer sity of b) 00:00:00 [facility] Influenza Virus 2015-06-29 Completed Universit y of Vaccine Quad IM 3+ 00:00:00 [facility] Influenza Virus 2015-06-29 Completed Universit y of Vaccine Quad IM 3+ 00:00:00 [facility] Influenza Virus 2015-06-29 Completed Universit y of Vaccine Quad IM 3+ 00:00:00 [facility] Influenza Virus 2015-06-29 Completed Universit y of Vaccine Quad IM 3+ 00:00:00 [facility] Influenza Virus 2015-06-29 Completed Universit y of Vaccine Quad IM 3+ 00:00:00 [facility] Influenza Virus 2015-06-29 Completed Universit y of Vaccine Quad IM 3+ 00:00:00 [facility] Influenza Virus 2015-06-29 Completed Universit y of Vaccine Quad IM 3+ 00:00:00 [facility] Influenza Virus 2015-06-29 Completed Universit y of Vaccine Quad IM 3+ 00:00:00 [facility] Influenza Virus 2015-06-29 Completed Universit y of Vaccine Quad IM 3+ 00:00:00 [facility] Influenza Virus 2015-06-29 Completed Universit y of Vaccine Quad IM 3+ 00:00:00 [facility] Influenza Virus 2015-06-29 Completed Universit y of Vaccine Quad IM 3+ 00:00:00 [facility] Influenza Virus 2015-06-29 Completed Universit y of Vaccine Quad IM 3+ 00:00:00 [facility] Influenza Virus 2015-06-29 Completed Universit y of Vaccine Quad IM 3+ 00:00:00 [facility] Influenza Virus 2015-06-29 Completed Universit y of Vaccine Quad IM 3+ 00:00:00 [facility] Influenza Virus 2015-06-29 Completed Universit y of Vaccine Quad IM 3+ 00:00:00 [facility] Influenza Virus 2015-06-29 Completed Universit y of Vaccine Quad IM 3+ 00:00:00 [facility] Influenza Virus 2015-06-29 Completed Universit y of Vaccine Quad IM 3+ 00:00:00 [facility] Influenza Virus 2015-06-29 Completed Universit y of Vaccine Quad IM 3+ 00:00:00 [facility] Influenza Virus 2015-06-29 Completed Universit y of Vaccine Quad IM 3+ 00:00:00 [facility] Influenza Virus 2015-06-29 Completed Universit y of Vaccine Quad IM 3+ 00:00:00 [facility] Influenza Virus 2015-06-29 Completed Universit y of Vaccine Quad IM 3+ 00:00:00 [facility] Influenza Virus 2015-06-29 Completed Universit y of Vaccine Quad IM 3+ 00:00:00 [facility] Influenza Virus 2015-06-29 Completed Universit y of Vaccine Quad IM 3+ 00:00:00 [facility] Influenza Virus 2015-06-29 Completed Universit y of Vaccine Quad IM 3+ 00:00:00 [facility] Influenza Virus 2015-06-29 Completed Universit y of Vaccine Quad IM 3+ 00:00:00 [facility] Influenza Virus 2015-06-29 Completed Universit y of Vaccine Quad IM 3+ 00:00:00 [facility] Influenza Virus 2015-06-29 Completed Universit y of Vaccine Quad IM 3+ 00:00:00 [facility] Influenza Virus 2015-06-29 Completed Universit y of Vaccine Quad IM 3+ 00:00:00 [facility] Influenza Virus 2015-06-29 Completed Universit y of Vaccine Quad IM 3+ 00:00:00 [facility] Influenza Virus 2015-06-29 Completed Universit y of Vaccine Quad IM 3+ 00:00:00 [facility] Influenza Virus 2015-06-29 Completed Universit y of Vaccine Quad IM 3+ 00:00:00 [facility] Influenza Virus 2015-06-29 Completed Universit y of Vaccine Quad IM 3+ 00:00:00 [facility] Influenza Virus 2015-06-29 Completed Universit y of Vaccine Quad IM 3+ 00:00:00 [facility] Influenza Virus 2015-06-29 Completed Universit y of Vaccine Quad IM 3+ 00:00:00 [facility] Influenza Virus 2015-06-29 Completed Universit y of Vaccine Quad IM 3+ 00:00:00 [facility] Influenza Virus 2015-06-29 Completed Universit y of Vaccine Quad IM 3+ 00:00:00 [facility] Influenza Virus 2015-06-29 Completed Universit y of Vaccine Quad IM 3+ 00:00:00 [facility] Influenza Virus 2015-06-29 Completed Universit y of Vaccine Quad IM 3+ 00:00:00 [facility] Influenza Virus 2015-06-29 Completed Universit y of Vaccine Quad IM 3+ 00:00:00 [facility] Influenza Virus 2015-06-29 Completed Universit y of Vaccine Quad IM 3+ 00:00:00 [facility] Influenza Virus 2015-06-29 Completed Universit y of Vaccine Quad IM 3+ 00:00:00 [facility] Influenza Virus 2015-06-29 Completed Universit y of Vaccine Quad IM 3+ 00:00:00 [facility] Influenza Virus 2015-06-29 Completed Universit y of Vaccine Quad IM 3+ 00:00:00 [facility] Influenza Virus 2015-06-29 Completed Universit y of Vaccine Quad IM 3+ 00:00:00 [facility] Influenza Virus 2015-06-29 Completed Universit y of Vaccine Quad IM 3+ 00:00:00 [facility] Influenza Virus 2015-06-29 Completed Universit y of Vaccine Quad IM 3+ 00:00:00 [facility] Influenza Virus 2015-06-29 Completed Universit y of Vaccine Quad IM 3+ 00:00:00 [facility] Influenza Virus 2015-06-29 Completed Universit y of Vaccine Quad IM 3+ 00:00:00 [facility] Influenza Virus 2015-06-29 Completed Universit y of Vaccine Quad IM 3+ 00:00:00 [facility] Influenza Virus 2015-06-29 Completed Universit y of Vaccine Quad IM 3+ 00:00:00 [facility] Influenza Virus 2015-06-29 Completed Universit y of Vaccine Quad IM 3+ 00:00:00 [facility] Influenza Virus 2015-06-29 Completed Universit y of Vaccine Quad IM 3+ 00:00:00 [facility] Influenza Virus 2015-06-29 Completed Universit y of Vaccine Quad IM 3+ 00:00:00 [facility] Influenza Virus 2015-06-29 Completed Universit y of Vaccine Quad IM 3+ 00:00:00 [facility] Influenza Virus 2015-06-29 Completed Universit y of Vaccine Quad IM 3+ 00:00:00 [facility] Influenza Virus 2015-06-29 Completed Universit y of Vaccine Quad IM 3+ 00:00:00 [facility] Influenza Virus 2015-06-29 Completed Universit y of Vaccine Quad IM 3+ 00:00:00 [facility] Influenza Virus 2015-06-29 Completed Universit y of Vaccine Quad IM 3+ 00:00:00 [facility] Influenza Virus 2015-06-29 Completed Universit y of Vaccine Quad IM 3+ 00:00:00 [facility] Influenza Virus 2015-06-29 Completed Universit y of Vaccine Quad IM 3+ 00:00:00 [facility] Influenza Virus 2015-06-29 Completed Universit y of Vaccine Quad IM 3+ 00:00:00 [facility] Influenza Virus 2015-06-29 Completed Universit y of Vaccine Quad IM 3+ 00:00:00 [facility] Influenza Virus 2015-06-29 Completed Universit y of Vaccine Quad IM 3+ 00:00:00 [facility] Twinrix (hep a/hep 2015-06-28 Completed Univer sity of b) 00:00:00 [facility] Twinrix (hep a/hep 2015-06-28 Completed Univer sity of b) 00:00:00 [facility] Twinrix (hep a/hep 2015-06-28 Completed Univer sity of b) 00:00:00 [facility] Twinrix (hep a/hep 2015-06-28 Completed Univer sity of b) 00:00:00 [facility] Twinrix (hep a/hep 2015-06-28 Completed Univer sity of b) 00:00:00 [facility] Twinrix (hep a/hep 2015-06-28 Completed Univer sity of b) 00:00:00 [facility] Twinrix (hep a/hep 2015-06-28 Completed Univer sity of b) 00:00:00 [facility] Twinrix (hep a/hep 2015-06-28 Completed Univer sity of b) 00:00:00 [facility] Twinrix (hep a/hep 2015-06-28 Completed Univer sity of b) 00:00:00 [facility] Twinrix (hep a/hep 2015-06-28 Completed Univer sity of b) 00:00:00 [facility] Twinrix (hep a/hep 2015-06-28 Completed Univer sity of b) 00:00:00 [facility] Twinrix (hep a/hep 2015-06-28 Completed Univer sity of b) 00:00:00 [facility] Twinrix (hep a/hep 2015-06-28 Completed Univer sity of b) 00:00:00 [facility] Twinrix (hep a/hep 2015-06-28 Completed Univer sity of b) 00:00:00 [facility] Twinrix (hep a/hep 2015-06-28 Completed Univer sity of b) 00:00:00 [facility] Twinrix (hep a/hep 2015-06-28 Completed Univer sity of b) 00:00:00 [facility] Twinrix (hep a/hep 2015-06-28 Completed Univer sity of b) 00:00:00 [facility] Twinrix (hep a/hep 2015-06-28 Completed Univer sity of b) 00:00:00 [facility] Twinrix (hep a/hep 2015-06-28 Completed Univer sity of b) 00:00:00 [facility] Twinrix (hep a/hep 2015-06-28 Completed Univer sity of b) 00:00:00 [facility] Twinrix (hep a/hep 2015-06-28 Completed Univer sity of b) 00:00:00 [facility] Twinrix (hep a/hep 2015-06-28 Completed Univer sity of b) 00:00:00 [facility] Twinrix (hep a/hep 2015-06-28 Completed Univer sity of b) 00:00:00 [facility] Twinrix (hep a/hep 2015-06-28 Completed Univer sity of b) 00:00:00 [facility] Twinrix (hep a/hep 2015-06-28 Completed Univer sity of b) 00:00:00 [facility] Twinrix (hep a/hep 2015-06-28 Completed Univer sity of b) 00:00:00 [facility] Twinrix (hep a/hep 2015-06-28 Completed Univer sity of b) 00:00:00 [facility] Twinrix (hep a/hep 2015-06-28 Completed Univer sity of b) 00:00:00 [facility] Twinrix (hep a/hep 2015-06-28 Completed Univer sity of b) 00:00:00 [facility] Twinrix (hep a/hep 2015-06-28 Completed Univer sity of b) 00:00:00 [facility] Twinrix (hep a/hep 2015-06-28 Completed Univer sity of b) 00:00:00 [facility] Twinrix (hep a/hep 2015-06-28 Completed Univer sity of b) 00:00:00 [facility] Twinrix (hep a/hep 2015-06-28 Completed Univer sity of b) 00:00:00 [facility] Twinrix (hep a/hep 2015-06-28 Completed Univer sity of b) 00:00:00 [facility] Twinrix (hep a/hep 2015-06-28 Completed Univer sity of b) 00:00:00 [facility] Twinrix (hep a/hep 2015-06-28 Completed Univer sity of b) 00:00:00 [facility] Twinrix (hep a/hep 2015-06-28 Completed Univer sity of b) 00:00:00 [facility] Twinrix (hep a/hep 2015-06-28 Completed Univer sity of b) 00:00:00 [facility] Twinrix (hep a/hep 2015-06-28 Completed Univer sity of b) 00:00:00 [facility] Twinrix (hep a/hep 2015-06-28 Completed Univer sity of b) 00:00:00 [facility] Twinrix (hep a/hep 2015-06-28 Completed Univer sity of b) 00:00:00 [facility] Twinrix (hep a/hep 2015-06-28 Completed Univer sity of b) 00:00:00 [facility] Twinrix (hep a/hep 2015-06-28 Completed Univer sity of b) 00:00:00 [facility] Twinrix (hep a/hep 2015-06-28 Completed Univer sity of b) 00:00:00 [facility] Twinrix (hep a/hep 2015-06-28 Completed Univer sity of b) 00:00:00 [facility] Twinrix (hep a/hep 2015-06-28 Completed Univer sity of b) 00:00:00 [facility] Twinrix (hep a/hep 2015-06-28 Completed Univer sity of b) 00:00:00 [facility] Twinrix (hep a/hep 2015-06-28 Completed Univer sity of b) 00:00:00 [facility] Twinrix (hep a/hep 2015-06-28 Completed Univer sity of b) 00:00:00 [facility] Twinrix (hep a/hep 2015-06-28 Completed Univer sity of b) 00:00:00 [facility] Twinrix (hep a/hep 2015-06-28 Completed Univer sity of b) 00:00:00 [facility] Twinrix (hep a/hep 2015-06-28 Completed Univer sity of b) 00:00:00 [facility] Twinrix (hep a/hep 2015-06-28 Completed Univer sity of b) 00:00:00 [facility] Twinrix (hep a/hep 2015-06-28 Completed Univer sity of b) 00:00:00 [facility] Twinrix (hep a/hep 2015-06-28 Completed Univer sity of b) 00:00:00 [facility] Twinrix (hep a/hep 2015-06-28 Completed Univer sity of b) 00:00:00 [facility] Twinrix (hep a/hep 2015-06-28 Completed Univer sity of b) 00:00:00 [facility] Twinrix (hep a/hep 2015-06-28 Completed Univer sity of b) 00:00:00 [facility] Twinrix (hep a/hep 2015-06-28 Completed Univer sity of b) 00:00:00 [facility] Twinrix (hep a/hep 2015-06-28 Completed Univer sity of b) 00:00:00 [facility] Twinrix (hep a/hep 2015-06-28 Completed Univer sity of b) 00:00:00 [facility] Twinrix (hep a/hep 2015-06-28 Completed Univer sity of b) 00:00:00 [facility] Twinrix (hep a/hep 2015-06-28 Completed Univer sity of b) 00:00:00 [facility] Vital Signs Vital Name Observation Time Observation Value Comments Source Systolic blood 2021-10-21 02:21:45 130 mm[Hg] Univer sity of pressure [facility] Diastolic blood 2021-10-21 02:21:45 68 mm[Hg] Unive rsity of pressure [facility] Body temperature 2021-10-21 02:21:45 37.22 Briseida Kell [facility] 2021-10-21 00:30:00 84 /min [facility] Oxygen saturation in 2021-10-21 00:30:00 98 /min [facility] Arterial blood by [facility] bernadine Pulse oximetry Branch Respiratory rate 2021-10-20 23:09:00 18 /min [facility] Body height 2021-10-20 21:10:00 170.2 cm [facility] Body weight 2021-10-20 21:10:00 72.576 kg [facility] BMI 2021-10-20 21:10:00 25.06 kg/m2 [facility] Systolic blood 2021-08-26 18:00:00 157 mm[Hg] [facility] Diastolic blood 2021-08-26 18:00:00 97 mm[Hg] [facility] Heart rate 2021-08-26 18:00:00 87 /min [facility] Respiratory rate 2021-08-26 18:00:00 18 /min [facility] Oxygen saturation in 2021-08-26 18:00:00 97 /min [facility] Arterial blood by [facility] Pulse oximetry Branch Body temperature 2021-08-26 13:42:00 37.11 Briseida [facility] Body weight 2021-08-26 13:42:00 70.308 kg [facility] BMI 2021-08-26 13:42:00 24.28 kg/m2 [facility] Systolic blood 2020-12-12 16:16:00 97 mm[Hg] [facility] Diastolic blood 2020-12-12 16:16:00 67 mm[Hg] [facility] Heart rate 2020-12-12 16:16:00 97 /min [facility] Body temperature 2020-12-12 16:16:00 37.67 Briseida [facility] Respiratory rate 2020-12-12 16:16:00 18 /min [facility] Oxygen saturation in 2020-12-12 16:16:00 93 /min [facility] Arterial blood by [facility] Pulse oximetry Branch Body weight 2020-12-12 08:45:00 95.391 kg [facility] BMI 2020-12-12 08:45:00 32.94 kg/m2 [facility] Body height 2020-12-05 22:36:00 170.2 cm [facility] Systolic blood 2020-07-14 22:03:00 156 mm[Hg] [facility] Diastolic blood 2020-07-14 22:03:00 93 mm[Hg] [facility] Heart rate 2020-07-14 22:03:00 84 /min [facility] Respiratory rate 2020-07-14 22:03:00 20 /min [facility] Oxygen saturation in 2020-07-14 22:03:00 98 /min [facility] Body temperature 2020-07-14 03:11:00 36.67 Briseida [facility] Body weight 2020-07-13 20:13:00 83.898 kg [facility] BMI 2020-07-13 20:13:00 28.97 kg/m2 [facility] Systolic blood 2020-07-13 15:43:00 119 mm[Hg] [facility] Diastolic blood 2020-07-13 15:43:00 77 mm[Hg] [facility] Heart rate 2020-07-13 15:43:00 68 /min [facility] Oxygen saturation in 2020-07-13 15:43:00 95 /min [facility] [place] [facility] Systolic blood 2020-07-07 04:00:00 142 mm[Hg] [facility] [place] [facility] Diastolic blood 2020-07-07 04:00:00 94 mm[Hg] [facility] Heart rate 2020-07-07 04:00:00 73 /min [facility] Respiratory rate 2020-07-07 04:00:00 13 /min [facility] Oxygen saturation in 2020-07-07 04:00:00 99 /min [facility] [place] [facility] Body temperature 2020-07-07 00:04:24 36.83 Briseida [facility] Body weight 2020-07-06 23:44:00 86.183 kg [facility] BMI 2020-07-06 23:44:00 29.76 kg/m2 [facility] Systolic blood 2020-07-04 21:16:00 142 mm[Hg] [facility] Diastolic blood 2020-07-04 21:16:00 93 mm[Hg] [facility] Heart rate 2020-07-04 21:16:00 72 /min [facility] Respiratory rate 2020-07-04 21:16:00 18 /min [facility] Oxygen saturation in 2020-07-04 21:16:00 97 /min [facility] blood by [facility] Pulse oximetry Branch Body temperature 2020-07-04 17:14:00 36.89 Briseida [facility] Body weight 2020-07-04 17:14:00 86.183 kg [facility] BMI 2020-07-04 17:14:00 29.76 kg/m2 [facility] Systolic blood 2020-06-28 20:07:00 110 mm[Hg] [facility] Diastolic blood 2020-06-28 20:07:00 67 mm[Hg] [facility] Heart rate 2020-06-28 20:07:00 57 /min [facility] Body temperature 2020-06-28 20:07:00 36.83 Briseida [facility] Respiratory rate 2020-06-28 20:07:00 16 /min [facility] Oxygen saturation in 2020-06-28 20:07:00 99 /min [facility] [place] [facility] Body height 2020-06-27 03:02:00 170.2 cm [facility] Body weight 2020-06-27 03:02:00 83.008 kg [facility] BMI 2020-06-27 03:02:00 28.66 kg/m2 [facility] Systolic blood 2020-06-02 16:17:00 133 mm[Hg] [facility] Diastolic blood 2020-06-02 16:17:00 89 mm[Hg] [facility] [place] [facility] Heart rate 2020-06-02 16:17:00 72 /min [facility] Body temperature 2020-06-02 16:17:00 36.17 Briseida [facility] Respiratory rate 2020-06-02 16:17:00 20 /min [facility] Oxygen saturation in 2020-06-02 16:17:00 96 /min [facility] by [facility] Pulse oximetry Branch Body height 2020-05-30 22:29:00 170.2 cm [facility] Body weight 2020-05-30 22:29:00 81.647 kg [facility] BMI 2020-05-30 22:29:00 28.19 kg/m2 [facility] Systolic blood 2020-05-27 02:05:00 118 mm[Hg] [facility] Diastolic blood 2020-05-27 02:05:00 73 mm[Hg] [facility] Heart rate 2020-05-27 02:05:00 80 /min [facility] Respiratory rate 2020-05-27 02:05:00 10 /min [facility] Oxygen saturation in 2020-05-27 02:05:00 93 /min [facility] blood by [facility] Pulse oximetry Branch Body temperature 2020-05-26 23:07:00 37.22 Briseida [facility] Body height 2020-05-26 23:07:00 170.2 cm [facility] Body weight 2020-05-26 23:07:00 88.451 kg [facility] BMI 2020-05-26 23:07:00 30.54 kg/m2 [facility] Systolic blood 2020-05-13 22:00:00 106 mm[Hg] [facility] Diastolic blood 2020-05-13 22:00:00 57 mm[Hg] [facility] Heart rate 2020-05-13 22:00:00 54 /min [facility] Respiratory rate 2020-05-13 22:00:00 16 /min [facility] Oxygen saturation in 2020-05-13 22:00:00 100 /min [facility] blood by [facility] P[facility] o[facility] Branch Body temperature 2020-05-13 16:33:00 37.56 Briseida [facility] Body weight 2020-05-13 16:33:00 77.111 kg [facility] BMI 2020-05-13 16:33:00 26.63 kg/m2 [facility] Systolic blood 2020-05-13 15:28:00 135 mm[Hg] [facility] Diastolic blood 2020-05-13 15:28:00 88 mm[Hg] [facility] Heart rate 2020-05-13 15:28:00 80 /min [facility] Body temperature 2020-05-13 15:28:00 36.67 Briseida [facility] Respiratory rate 2020-05-13 15:28:00 18 /min [facility] Body height 2020-05-13 15:28:00 170.2 cm [facility] Body weight 2020-05-13 15:28:00 77.111 kg [facility] BMI 2020-05-13 15:28:00 26.63 kg/m2 [facility] Oxygen saturation in 2020-05-13 15:28:00 99 /min [facility] blood by [facility] Pulse oximetry Branch Systolic blood 2020-03-23 15:48:00 130 mm[Hg] [facility] Diastolic blood 2020-03-23 15:48:00 89 mm[Hg] [facility] Heart rate 2020-03-23 15:48:00 95 /min [facility] Body height 2020-03-23 15:48:00 170.2 cm [facility] Body weight 2020-03-23 15:48:00 83.008 kg [facility] BMI 2020-03-23 15:48:00 28.66 kg/m2 [facility] Oxygen saturation in 2020-03-23 15:48:00 100 /min [facility] blood by [facility] Pulse oximetry Branch Systolic blood 2019-12-08 18:48:47 99 mm[Hg] [facility] [place] [facility] [place] Diastolic blood 2019-12-08 18:48:47 70 mm[Hg] Unive rsity of pressure [facility] Heart rate 2019-12-08 18:48:47 63 /min [facility] Respiratory rate 2019-12-08 18:48:47 18 /min [facility] Oxygen saturation in 2019-12-08 18:48:47 100 /min [facility] blood by [facility] Pulse oximetry Branch Body temperature 2019-12-08 16:07:00 37 Briseida [facility] Body height 2019-12-08 16:07:00 170.2 cm [facility] Body weight 2019-12-08 16:07:00 81.647 kg [facility] BMI 2019-12-08 16:07:00 28.19 kg/m2 Universi ty [facility] Systolic blood 2019-12-08 15:11:00 119 mm[Hg] Univer [facility]ity of pressure [facility] Diastolic blood 2019-12-08 15:11:00 80 mm[Hg] Unive rsity of pressure [facility] Heart rate 2019-12-08 15:11:00 83 /min [facility] Body temperature 2019-12-08 15:11:00 36.44 Briseida [facility] Respiratory rate 2019-12-08 15:11:00 18 /min [facility] Body weight 2019-12-08 15:11:00 82.827 kg [facility] BMI 2019-12-08 15:11:00 28.60 kg/m2 [facility] ty [facility] Procedures Procedure Date / Time Performing Clinician Source Performed URINALYSIS 2021-10-21 00:48:00 Dash Guerrero [facility] CT ANGIOGRAM 2021-10-21 00:27:00 Dash Guerrero [facility] ABDOMEN/PELVIS Medical Branch COMP. METABOLIC PANEL 2021-10-20 22:22:00 Dash Guerrero [facility] ([id number]) [facility] [place] CBC WITH DIFF 2021-10-20 22:22:00 Dash Guerrero [facility] PROTHROMBIN TIME / INR 2021-10-20 22:22:00 Dash Guerrero [facility] ACTIVATED PARTIAL 2021-10-20 22:22:00 Dash Guerrero [facility] THRMPLAS [facility] CONSENT/REFUSAL FOR 2021-10-20 20:49:49 Doctor Unassigned, [facility] DIAGNOSIS AND TREATMENT [place] [facility] CT ABDOMEN PELVIS W 2021-08-26 16:31:09 Torey Kay [facility] URINE DRUG (IMMUNOASSAY) 2021-08-26 15:26:00 Torey Kay [facility] SCREEN URINALYSIS 2021-08-26 15:26:00 Torey Kay [facility] XR CHEST 1 VW 2021-08-26 14:33:00 Torey Kay [facility] BLOOD CULTURE SCREEN 2021-08-26 14:21:00 Torey [facility] BLOOD CULTURE SCREEN 2021-08-26 14:15:00 Torey Kay [facility] LIPASE 2021-08-26 14:15:00 Torey Kay [facility] MAGNESIUM 2021-08-26 14:15:00 Torey Kay [facility] TROPONIN I 2021-08-26 14:15:00 Torey Kay [facility] COMP. METABOLIC PANEL 2021-08-26 14:15:00 Torey Kay [facility] ([id number]) [facility] CBC WITH DIFF 2021-08-26 14:15:00 Torey Kay [facility] AC PANEL 21 + LACTIC ACID 2021-08-26 14:14:00 [facility] 2021-08-26 13:50:45 Doctor Unassdudley [facility] 2020-12-12 10:06[facility]00 [facility] 2020-12-12 10:06:00 Sandrita [facility] BASIC METABOLIC PANEL 2020-12-12 10:06:00 Phill Nehemias Rene Un [facility] (NA, K, CL, CO2, GLUCOSE, Medica l Branch BUN, CREATININE, CA) VANCOMYCIN RANDOM LEVEL 2020-12-11 14:30:00 Nasir Fowler [facility] OSMOLALITY URINE 2020-12-11 10:41:00 Nicole Sanchez [facility] CREATININE, URINE RANDOM 2020-12-11 10:39:00 Nicole Sanchez [facility] POTASSIUM, URINE RANDOM 2020-12-11 10:39:00 Nicole Sanchez [facility] SODIUM, URINE RANDOM 2020-12-11 10:39:00 Nicole Sanchez [facility] PHOSPHORUS 2020-12-11 08:50:00 Sandrita [facility] URIC ACID 2020-12-11 08:50:00 Nicole Sanchez [facility] MAGNESIUM 2020-12-11 08:50:00 Sandrita [facility] OSMOLALITY, SERUM OR 2020-12-11 08:50:00 Nicole Sanchez [facility] BASIC METABOLIC PANEL 2020-12-11 08:50:00 Ad Remy [facility] (NA, K, CL, CO2, GLUCOSE, Medica l Branch BUN, CREATININE, CA) CBC WITH DIFF 2020-12-11 08:50:00 Nasir Fowler [facility] URINALYSIS 2020-12-10 20:31:00 Nasir Fowler [facility] URINE CULTURE 2020-12-10 20:31:00 Nasir Fowler [facility] BLOOD CULTURE SCREEN 2020-12-10 17:58:00 Nasir [facility] BLOOD CULTURE SCREEN 2020-12-10 17:51:00 Janeth [facility] PHOSPHORUS 2020-12-10 17:50:00 Zenaida Rodrigez [facility] BASIC METABOLIC PANEL 2020-12-10 17:50:00 Nicole Sanchez [facility] (NA, K, CL, CO2, GLUCOSE, Medica l Branch BUN, CREATININE, CA) CBC WITH DIFF 2020-12-10 [facility] 2020-12-10 [facility] 2020-12-10 14:44:00 Sandrita [facility] PHOSPHORUS 2020-12-10 10:29:00 Sandrita [facility] MAGNESIUM 2020-12-10 10:29:00 Sandrita [facility] BASIC METABOLIC PANEL 2020-12-10 10:29:00 Sandrita [facility] (NA, K, CL, CO2, GLUCOSE, Medica l Branch BUN, CREATININE, CA) BASIC METABOLIC PANEL 2020-12-10 00:50:00 Nicole Sanchez [facility] (NA, K, CL, CO2, GLUCOSE, Medica l Branch BUN, CREATININE, CA) VANCOMYCIN TROUGH 2020-12-09 19:02:00 Sandrita [facility] PHOSPHORUS 2020-12-09 09:58:00 Sandrita [facility] MAGNESIUM 2020-12-09 09:58:00 Sandrita [facility] BASIC METABOLIC PANEL 2020-12-09 09:58:00 Sandrita [facility] (NA, K, CL, CO2, GLUCOSE, Medica l Branch BUN, CREATININE, CA) CT ABDOMEN PELVIS W 2020-12-08 17:35:25 Lesley Jay [facility] CONTRAST [facility] PHOSPHORUS 2020-12-08 09:38:00 Sandrita [facility] MAGNESIUM 2020-12-08 09:38:00 Sandrita [facility] BASIC METABOLIC PANEL 2020-12-08 09:38:[facility] (NA, K, CL, CO2, GLUCOSE, Medica l Branch BUN, CREATININE, CA) VANCOMYCIN TROUGH 2020-12-08 06:35:00 Sandrita [facility] TRANSTHORACIC ECHO (TTE) 2020-12-07 18:35:00 Nasir Fowler [facility] MAGNESIUM 2020-12-07 09:59:00 [facility] MET[facility]OLIC PANEL 2020-12-07 09:59:00 [facility] (NA, K, CL, CO2, GLUCOSE, Medica l Branch BUN, CREATININE, CA) CBC WITH DIFF 2020-12-07 09:59:00 [facility] BASIC METABOLIC PANEL 2020-12-07 02:15:00 Sandrita [facility] (NA, K, CL, CO2, GLUCOSE, Medica l Branch BUN, CREATININE, CA) MAGNESIUM 2020-12-06 15:50:00 Jose [facility] BASIC METABOLIC PANEL 2020-12-06 15:50:00 [facility] (NA, K, CL, CO2, GLUCOSE, Medica l Branch BUN, CREATININE, CA) CBC WITH DIFF 2020-12-06 15:50:00 Sandrita [facility] MAGNESIUM 2020-12-05 22:29:00 [facility] BASIC METABOLIC PANEL 2020-12-05 22:29:00 Alecia Eagle [facility] (NA, K, CL, CO2, GLUCOSE, Medica l Branch BUN, CREATININE, CA) CT HEAD WO CONTRAST 2020-12-05 20:11:36 Alecia [facility] POCT GLUCOSE(AGE >30DAYS) 2020-12-05 19:44:00 Alecia Eagle [facility] POCT TEST 2020-12-05 18:53:00 Alecia [facility] URINE DRUG (IMMUNOASSAY) 2020-12-05 18:49:00 Alecia Eagle [facility] COMPREHENSIVE DRUG [facility] SCREEN URINALYSIS 2020-12-05 18:49:00 Alecia Eagle [facility] URINE CULTURE 2020-12-05 18:49:00 Alecia Eagle [facility] EXTRA TUBE LT. BLUE 2020-12-05 18:49:00 Alecia [facility] XR CHEST 1 VW 2020-12-05 18:44:56 Alecia Eagle [facility] COVID-19 (ID NOW RAPID 2020-12-05 18:39:00 Alecia Eagle [facility] TESTING) [facility] LAB ONLY COVID 2020-12-05 18:39:00 Alecia Eagle [facility] INTERPRETATION [facility] BLOOD CULTURE SCREEN 2020-12-05 18:35:00 Alecia Eagle [facility] LIPASE 2020-12-05 18:35:00 Alecia Eagle [facility] MAGNESIUM 2020-12-05 18:35:00 Alecia Eagle [facility] TROPONIN I 2020-12-05 18:35:00 Alecia Eagle [facility] THYROID STIMULATING 2020-12-05 18:35:00 Alecia Eagle [facility] HORMONE [facility] COMP. METABOLIC PANEL 2020-12-05 18:35:00 Alecia Eagle [facility] ([id number]) [facility] CBC WITH DIFF 2020-12-05 18:35:00 Alecia Eagle [facility] LACTIC ACID WHOLE BLOOD 2020-12-05 18:34:00 Alecia Eagle [facility] AC PANEL 20 + LACTIC ACID 2020-12-05 18:34:00 Alecia Eagle U [facility] HB ECG ROUTINE & RHYTHM 2020-12-05 18:24:21 Alecia Eagle [facility] PHYSICIAN ORDERS 2020-09-09 05:01:00 Doctor Unassigned, [facility] Name [facility] [place] CBC WITH DIFF 2020-08-09 17:14:00 Luisa [facility] URINALYSIS 2020-08-09 17:14:00 Luisa [facility] RHEUMATOID FACTOR 2020-08-09 17:14:00 Luisa [facility] C-REACTIVE PROTEIN 2020-08-09 [facility]:14[facility] MET[facility]OLIC PANEL 2020-08-09 17:14:00 Leigh Moran [facility] ([id number]) [facility] SEDIMENTATION RATE 2020-08-09 17:14:00 Luisa [facility] ANTI-SSB(LA) 2020-08-09 17:14:00 Luisa [facility] ADC OR LEXX ONLY - RPR 2020-08-09 17:14:00 [facility]2 [facility]-AB WITH REFLEX 2020-08-09 17:14:00 [facility] ASSIGNMENT OF BENEFITS 2020-08-09 16:41:17 Doctor Unassigned, Un [facility] [place] BODY FLUID DIRECT COUNT 2020-07-14 20:10:00 Hansel Kennedy [facility] CSF CULTURE 2020-07-14 20:10:00 Hansel Kennedy [facility] CEREBROSPINAL FLUID 2020-07-14 20:09:00 Hansel Kennedy [facility] PROTEIN [facility] CEREBROSPINAL FLUID 2020-07-14 20:09:00 Hansel Kennedy [facility] GLUCOSE [facility] EXTRA TUBE CSF 2020-07-14 20:09:00 Hansel Kennedy [facility] MENINGITIS/ENCEPHALITIS 2020-07-14 20:09:00 Hansel Kennedy [facility] PANEL BY PCR [facility] POCT GLUCOSE (AUTOMATED) 2020-07-14 14:55:00 Christina Roque [facility] MAGNESIUM 2020-07-14 13:11:00 Hansel Kennedy [facility] PHOSPHORUS 2020-07-14 13:10:00 Formerly [facility] o f [facility] XR CHEST 1 VW 2020-07-14 13:06:38 Hansel Kennedy [facility] URINALYSIS 2020-07-14 09:32:00 Bhaskar Reyna [facility] COVID-19 (ID NOW RAPID 2020-07-14 09:25:00 Axel Bhaskar B [facility] TESTING) [facility] C-REACTIVE PROTEIN 2020-07-14 01:10:00 Bhaskar Reyna [facility] HEPATIC FUNCTION PANEL 2020-07-14 01:10:00 Axel Bhaskar B [facility] ([id number]) (ALB,T.PRO,[facility]ILD[facility] T,BU/BC,ALT,AST,ALK PHOS) BASIC METABOLIC PANEL 2020-07-14 01:10:00 Bhaskar Reyna [facility] (NA, K, CL, CO2, GLUCOSE, Medica l Branch BUN, CREATININE, CA) SEDIMENTATION RATE 2020-07-14 01:10:00 Bhaskar Reyna [facility] CBC WITH DIFF 2020-07-14 01:10:00 Bhaskar Reyna [facility] AUTHORIZATION FOR RELEASE 2020-07-08 05:01:00 Doctor Unassigned, [facility] [place] [facility] REFERRAL- 2020-07-07 05:01:00 Doctor Unassdudley, [facility] REQUEST/RESPONSE [facility] [facility] CBC WITH DIFF 2020-07-07 03:16:00 Alecia Eagle [facility] NOTICE OF PRIVACY 2020-07-06 23:35:30 Doctor Unassigned, [facility] PRACTICES [place] [facility] CONSENT/REFUSAL FOR 2020-07-06 23:35:07 Doctor [place], [facility] DIAGNOSIS AND TREATMENT [place] [facility] CT HEAD WO CONTRAST 2020-07-04 19:42:39 Lety Noriega [facility] LIPASE 2020-07-04 18:56:00 Lety Noriega [facility] COMP. METABOLIC PANEL 2020-07-04 18:56:00 Lety Noriega [facility] ([id number]) [facility] CBC WITH DIFF 2020-07-04 18:56:00 Lety Noriega [facility] URINALYSIS 2020-07-04 18:56:00 Lety Noriega [facility] CONSENT/REFUSAL FOR 2020-07-04 17:04:54 Doctor [place], [facility] DIAGNOSIS AND TREATMENT [place] [facility] TROPONIN I 2020-06-27 16:14:00 Michael [facility] MR BRAIN WO CONTRAST 2020-06-27 10:20:11 Jose [facility] COVID-19 (ID NOW RAPID 2020-06-26 22:32:00 [facility] [place] CT ANGIOGRAM HEAD 2020-06-26 22:14:[address] [facility] CT ANGIOGRAM NECK 2020-06-26 22:14:[address] [facility] CT HEAD WO CONTRAST 2020-06-26 22:02:20 Sabrina [facility] URINALYSIS 2020-06-26 21:28:00 Tung [facility] XR CHEST 1 VW 2020-06-26 20:27:04 Tung [facility] TROPONIN I 2020-06-26 20:24:00 Tung [facility] HEPATIC FUNCTION PANEL 2020-06-26 20:24:00 [facility] ([id number]) (ALB,T.PRO,BILI Medical Branch T,BU/BC,ALT,AST,ALK PHOS) BASIC METABOLIC PANEL 2020-06-26 20:24:00 [facility] (NA, K, CL, CO2, GLUCOSE, Medica l Branch BUN, CREATININE, CA) SEDIMENTATION RATE 2020-06-26 20:24:00 [facility] CBC WITH DIFF 2020-06-26 20:24:00 [facility] HB ECG ROUTINE & RHYTHM 2020-06-26 20:16:57 [facility]REFUSAL FOR 2020-06-26 20:02:52 Doctor Unassigned, [facility] DIAGNOSIS AND TREATMENT [place] [facility] COMP. METABOLIC PANEL 2020-06-01 09:54:00 Zenaida Rodrigez [facility] ([id number]) [facility] BASIC METABOLIC PANEL 2020-05-31 14:36:00 Cade Hernadez [facility] (NA, K, CL, CO2, GLUCOSE, Medica l Branch BUN, CREATININE, CA) CBC WITH DIFF 2020-05-31 12:26:00 Ad Remy [facility] CT ABDOMEN PELVIS W WO 2020-05-30 20:49:43 Dash Guerrero [facility] BLOOD CULTURE SCREEN 2020-05-30 20:16:00 Dash [facility]errero [facility] LACTIC ACID WHOLE BLOOD 2020-05-30 20:15:00 Dash Guerrero [facility] URINALYSIS 2020-05-30 20:14:00 Dash Guerrero [facility] HEPATIC FUNCTION PANEL 2020-05-30 20:13:00 Dash Guerrero [facility] ([id number]) ([facility] T,BU/BC,ALT,AST,ALK PHOS) BASIC METABOLIC PANEL 2020-05-30 20:13:00 Dash Guerrero [facility] (NA, K, CL, CO2, GLUCOSE, Medica l Branch BUN, CREATININE, CA) CBC WITH DIFF 2020-05-30 20:13:00 Dash Guerrero [place] [facility] PROTHROMBIN TIME / INR 2020-05-30 20:13:00 Dash Guerrero [facility] ACTIVATED PARTIAL 2020-05-30 20:13:00 Dash Guerrero [facility] THRMPLAS AMAN [facility] COVID-19 (ID NOW RAPID 2020-05-30 20:13:00 Dash Guerrero [facility] TESTING) Medical Branch LAB ONLY COVID 2020-05-30 20:13:00 Dash Guerrero [place] [facility] INTERPRETATION [facility] BLOOD CULTURE SCREEN 2020-05-30 20:09:00 Dash [facility] CONSENT/REFUSAL FOR 2020-05-30 19:22:16 Doctor Unassigned, [facility] DIAGNOSIS AND TREATMENT [place] [facility] URINALYSIS 2020-05-27 00:16:00 Umm Mares [facility] HEPATIC FUNCTION PANEL 2020-05-26 23:25:00 Umm Mares [facility] ([id number]) ([facility] [place] T,BU/BC,ALT,AST,ALK PHOS) BASIC METABOLIC PANEL 2020-05-26 23:25:00 Umm Mares [facility] (NA, K, CL, CO2, GLUCOSE, Medica l Branch BUN, CREATININE, CA) CBC WITH DIFF 2020-05-26 23:25:00 Umm Mares [facility] CONSENT/REFUSAL FOR 2020-05-26 22:59:39 Doctor Unassigned, [facility] DIAGNOSIS AND TREATMENT [place] [facility] URINALYSIS 2020-05-13 18:34:00 Dottie Troncoso [facility] CT ABDOMEN PELVIS W 2020-05-13 17:26:18 Dottie Troncoso [facility] CONTRAST Medical Branch LIPASE 2020-05-13 16:47:00 Dottie Troncoso [facility] HEPATIC FUNCTION PANEL 2020-05-13 16:47:00 Dottie Troncoso [facility] ([id number]) (ALB,T.PRO,BILI Medical Branch T,BU/BC,ALT,AST,ALK PHOS) BASIC METABOLIC PANEL 2020-05-13 16:47:00 Dottie Troncoso [facility] (NA, K, CL, CO2, GLUCOSE, Medica l Branch BUN, CREATININE, CA) CBC WITH DIFF 2020-05-13 16:47:00 Dottie Troncoso [facility] NOTICE OF PRIVACY 2020-05-13 16:27:55 Doctor [place], [facility] [place] [facility] [place] CONSENT/REFUSAL FOR 2020-05-13 16:23:10 Doctor [place], [facility] RECORDS 2019-12-10 05:01:00 Doctor Ho, [facility] Medical [place] US ABDOMEN LIMITED 2019-12-08 18:04:34 Lesley Bee [facility] XR CHEST 1 VW 2019-12-08 17:33:32 Lesley Bee [facility] CT ABDOMEN PELVIS WO 2019-12-08 16:24:35 Lesley Bee [facility] CONTRAST [facility] COMP. METABOLIC PANEL 2019-12-08 16:15:00 Lesley Bee [facility] ([id number]) Medical Branch CBC WITH DIFF 2019-12-08 16:15:00 Lesley Bee [facility] URINALYSIS 2019-12-08 16:13:00 Lesley Bee [facility] POCT TEST 2019-12-08 16:12:00 Lesley Bee [facility] NOTICE OF PRIVACY 2019-12-08 15:46:34 Doctor [place], [facility] [place] [facility] [place] CONSENT/REFUSAL FOR 2019-12-08 15:46:19 Doctor [place] [facility] DIAGNOSIS AND TREATMENT [facility] POCT URINALYSIS AUTO 2019-12-08 15:09:00 Abhijit [facility] PHYSICIAN CERTIFICATION 2019-09-29 05:01:00 Doctor [place], [facility] STATEMENT [place] [facility] AGREEMENTS AUTHORIZATIONS 2019-03-28 06:01:00 Doctor Unassigned, University [facility] AND IRREVOCABLE [place] [facility] ASSIGNMENTS (FORM 2001) Plan of Care Planned Activity Planned Date Details Comments Source Future Scheduled 2023-10-26 Lipid panel (procedure) [facility] Test 00:00:00 [code = 49419098] Medical Ce nter Future Scheduled 2021-10-13 INFLUENZA VACCINE (#1) [facility] 00:00:00 [code = INFLUENZA Medical Ce nter VACCINE (#1)] Future Scheduled 1996-05-19 Screening for malignant [facility] 00:00:00 neoplasm of cervix Medical C enter (procedure) [code = 159460558] Future Scheduled 1994-05-19 DTAP/TDAP/TD VACCINES [facility] 00:00:00 (1 - Tdap) [code = Medical C enter DTAP/TDAP/TD VACCINES (1 - Tdap)] Future Scheduled 1993-05-19 HEPATITIS C SCREENING [facility] 00:00:00 [code = HEPATITIS C Medical Center SCREENING] Future Scheduled 1981-05-[address] [facility] Test 00:00:00 0-64 YRS (1 - PCV) Medical C enter [code = PNEUMOCOCCAL VACCINE 0-64 YRS (1 - PCV)] Future Scheduled 1975 COVID-19 VACCINE (#1) [facility] 00:00:00 [code = COVID-[address] VACCINE (#1)] Future Scheduled 1975 CT Colonography (combo) [facility] Test 00:00:00 [code = CT Colonography [facility] (combo)] Future Scheduled 1975 Screening for malignant [facility] Test 00:00:00 neoplasm of colon Medical Ce nter (procedure) [code = 360332800] Future Scheduled 1975 Screening for malignant [facility] Test 00:00:00 neoplasm of colon Medical Ce nter (procedure) [code = 242150507] Future Scheduled 1975 Screening for malignant [facility] Test 00:00:00 neoplasm of colon Medical Ce nter (procedure) [code = 741409589] Future Scheduled 1975 Screening for malignant [facility] Test 00:00:00 neoplasm of colon Medical Ce nter (procedure) [code = 745766030] Future Scheduled 1975 Sigmoidoscopy [facility]] Medical Cente r Encounters Start End Encounter Admission Attending Care Care Encounter Source Date/Time Date/Time Type Type Clinicians Facility Department ID 2021-09-19 Outpatient Nick Fallon [facility] [id number] - Common 14:12:01 [id number] [facility] 2021-03-09 Outpatient Pool [facility] [id number] Common 13:01:40 Levy [id number] [facility] 2021-03-09 Outpatient Pool [facility] [id number] Common 13:01:30 Levy [id number] [facility] 2020-12-12 Emergency [facility] [id number] Univers 22:28:34 ity of [facility] 2020-12-12 Emergency [facility] [id number] Univers 21:17:57 ity of [facility] 2020-12-12 Emergency [facility] [id number] Univers 20:44:10 ity of [facility] 2020-12-12 Emergency [facility] [id number] Univers 19:18:03 ity of [facility] 2020-12-12 Emergency [facility] [id number] Univers 13:38:38 ity of [facility] 2020-12-12 Emergency [facility] [id number] Univers 12:59:09 ity of [facility] 2020-12-12 Emergency [facility] [id number] Univers 10:04:40 ity of [facility] 2020-12-11 Emergency [facility] [id number] Univers 01:01:21 ity of [facility] 2021-10-20 2021-10-20 Emergency X ELI TNYAW ERT [id number] Univers 16:11:00 21:33:00 ALECIA ity [facility] 2021-10-20 2021-10-20 Emergency Dash Guerrero [facility] 1.2.840. 114 [id number] Univers 16:11:00 21:33:00 Alecia Eagle 350.1.13.10 ity [facility] 4.2.7.2.686 [facility] [id number] [address] 2021-10-18 2021-10-18 ambulatory STLMLC STLMLC [id number] Common 00:00:00 00:00:00 [facility] 2021-10-12 2021-10-12 ambulatory STLMLC STLMLC [id number] Common 00:00:00 00:00:00 [facility] 2021-09-26 2021-09-26 ambulatory STLMLC STLMLC [id number] Common 00:00:00 00:00:00 [facility] 2021-09-19 2021-09-19 ambulatory STLMLC STLMLC [id number] Common 00:00:00 00:00:00 [facility] 2021-08-26 2021-08-26 Emergency X Torey KAY [facility] ERT [id number] Univers 08:39:00 14:03:00 ity [facility] 2021-08-26 2021-08-26 Emergency Torey Kay [facility] 1.2.840.114 [id number] Univers 08:39:00 14:03:00 Joanie VELASCO 350.1.13.10 i ty of [place] 4.2.7.2.686 [facility] [id number] [address] 2021-03-08 2021-03-08 [facility] 1.2.840.114 [id number] Univers 00:00:00 00:00:00 Johnson VELASCO 350.1.13.10 ity of [place] 4.2.7.2.686 [facility] PROFESSIO [phone] Mt dical NAL 092 Branch [facility] 2020-12-23 2020-12-23 Outpatient R [facility] [id number] Univers 00:00:00 00:00:00 ity [facility] 2020-12-14 2020-12-14 Transition FILEMON Redman 1.2.840.114 [id number] Univers 00:00:00 00:00:00 of Care Josselin LEWIS 350.1.13.10 i ty [place] [phone] [facility] 403 Branch 2020-12-05 2020-12-12 Inpatient X SANDRITA [facility] CHOLO [id number] Univers 13:25:00 15:45:00 AD ity of [facility] 2020-12-05 2020-12-12 [facility] Alecia Eagle [facility] 1.2.840. 114 [id number] Univers 13:25:00 15:45:00 Encounter Ad Remy KRISTA 350.1.13.10 [place] [phone] [facility] 081 Branch 2020-11-01 2020-11-01 Refsherron Lavon [facility] 1.2.840.114 [id number] Univers 00:00:00 00:00:00 [facility] 350.1.13.10 i ty of [place] 4.2.7.2.686 T [facility] [phone] [facility] 092 Branch Office Building 2020-10-12 2020-10-12 [facility] 1.2.840.114 [id number] Univers 00:00:00 00:00:00 Johnson Velasco 350.1.13.10 it[place] [phone] Mt dical nal 092 Branch [facility] 2020-10-07 2020-10-07 Wound Care Coordinator Ny Hutton Lab Main [facility] 1.2.8 40.114 [id number] Univers 10:29:15 10:44:15 Visit Anish Carrera 350.1.13.10 it[place] of [place] [phone] Mt dical nal 353 [facility] 2020-10-07 2020-10-07 Outpatient [facility] [id number] Univers 10:30:00 10:30:00 [id number] ity of [facility] 2020-10-07 2020-10-07 Outpatient R DEBI [facility] [id number] Univers 10:30:00 10:30:00 [facility] 2020-09-15 2020-09-15 Outpatient R [facility] [id number] Univers 10:00:00 10:00:00 [id number] ity of [facility] 2020-09-10 2020-09-10 Refill Lavon [facility] 1.2.840.114 [id number] Univers 00:00:00 00:00:00 Michael Eaton 350.1.13.10 i ty of [place] 4.2.7.2.686 T LikeMe.Netsudha Camilo Forman [phone] [place] 226532 Branch Office Building 2020-09-09 2020-09-09 Orders Doctor CIPRIANO 1.2.840.114 [id number] Univers 00:00:00 00:00:00 Only Unassigned, KATIE 350.1.13.10 ity of [place] [facility] 4.2.7.2.686 [place] as [phone] [facility] 009 Branch 2020-09-06 2020-09-06 Telephone CIPRIANO Machado 1.2.530.133 [id number] Univers 00:00:00 00:00:00 Bailey WILSON 350.1.13.10 i ty of [facility] 4.2.7.2.686 [place] [phone] [facility] 082 Branch 2020-08-13 2020-08-13 Refill Lavon [facility] 1.2.840.114 [id number] Univers 00:00:00 00:00:00 Michael Eaton 350.1.13.10 i ty of [place] 4.2.7.2.686 T LikeMe.Netsudha Camilo Baez [phone] [place] 226532 Branch Office Building 2020-08-09 2020-08-09 Outpatient R [facility] [id number] Univers 12:00:00 12:00:00 [id number] [facility] 2020-08-09 2020-08-09 Outpatient R [facility] [id number] Univers 12:00:00 12:00:00 ANISH [facility] 2020-08-09 2020-08-09 Wound Care Coordinator Anni, Ny Lab Main [facility] 1.2.8 40.114 [id number] Univers 11:42:15 11:57:15 Visit Anish Carrera 350.1.13.10 it[place] of [place] [phone] Mt dical nal 353 Branch [facility] 2020-08-09 2020-08-09 Orders Doctor COTA 1.2.840.114 [id number] Univers 00:00:00 00:00:00 Only UnassignedKATIE 350.1.13.10 ity of [place] [facility]ITAL 4.2.7.2.686 [place] as [phone] [facility] 009 Branch 2020-07-13 2020-07-14 Emergency Aufderricha, Shi Melvin TRAUMA 1.2.840.114 [id number] Univers 15:14:00 19:27:00 [facility] 350.1.13.10 [place] [phone] [facility] 014 Branch 2020-07-13 2020-07-13 Office Phillip [facility] 1.2.840.114 [id number] Univers 09:44:58 11:19:02 Visit Johnson Velasco 350.1.13.10 ity of [place].2.[place] [phone] Mt dical nal 092 [facility] 2020-07-13 2020-07-13 Outpatient [facility]ON [facility] [id number] Univers 09:40:00 09:40:00 JOHNSON FISHER [id number] ity [facility] 2020-07-13 2020-07-13 Outpatient [facility] [id number] Univers 09:40:00 09:40:00 JOHNSON FISHER ity of [facility] 2020-07-13 2020-07-13 CIPRIANO Sutherland 1.2.840.114 [id number] Univers 00:00:00 00:00:00 (Out) Fercho WILSON 350.1.13.10 ity of HOSPITAL 4.2.7.2.686 [place] [phone] [facility] 043 Branch 2020-07-08 2020-07-08 Orders Doctor CIPRIANO 1.2.840.114 [id number] Univers 00:00:00 00:00:00 Only Unassigned, KATIE 350.1.13.10 ity of [place] [facility]OSPITAL 4.2.7.2.686 [place] [phone] [facility] 009 [place] 2020-07-07 2020-07-07 Orders Doctor CIPRIANO 1.2.840.114 [id number] Univers 00:00:00 00:00:00 Only Unassigned, KATIE 350.1.13.10 ity of [place] [facility]ITAL 4.2.7.2.686 [place] as [phone] [facility] 009 [place] 2020-07-07 2020-07-07 Telephone [facility] 1.2.854.672 [id number] Univers 00:00:00 00:00:00 Angy PRIMARY 350.1.13.10 it y of [facility] 4.2.7.2.686 [place] [facility] [phone] [place] 038576 [place] 2020-07-06 2020-07-06 Emergency [facility] 1.2.371.834 [id number] Univers 18:48:00 23:59:00 Alecia Velasco 350.1.13.10 ity of [place].2.[place] [phone] [place] 691644 [place] 2020-07-04 2020-07-04 Emergency [facility] 1.2.840.114 [id number] Univers 12:16:00 18:32:00 Lety Velasco 350.1.13.10 ity of [place]2.[place] [phone] [facility] 084 [place] 2020-06-26 2020-06-28 Emergency Sabrina Ruby 1.2.840 .114 [id number] Univers 15:08:00 18:15:00 Caio Hernandez 350.1.13.10 ity of [facility] 4.2.7.2.686 [place] [phone] Medi bernadine 098 Branch 2020-06-28 2020-06-28 Telephone [facility] 1.2.840.114 [id number] Univers 00:00:00 00:00:00 Johnson Velasco 350.1.13.10 ity of [place]2.7.2.[place] [facility] [phone] Mt dical critical access hospital 092 [facility] 2020-06-22 2020-06-22 Outpatient [facility] [id number] Common 00:00:00 00:00:00 [facility] - [facility] 2020-05-30 2020-06-02 Emergency GuerreroDash [facility] 1.2.840. 114 [id number] Univers 14:32:00 11:50:00 Ad Remy 350.1.13.10 ity of [place] 4.2.7.2.686 [facility] [phone] [facility] 081 Branch 2020-05-31 2020-05-31 [facility] [id number] Univers 09:45:00 09:45:00 ABHIJIT [id number] ity of [facility] 2020-05-31 2020-05-31 Outpatient [facility] [id number] Univers 09:45:00 09:45:00 ABHIJIT ity of [facility] 2020-05-26 2020-05-26 Emergency [facility] 1.2.043.668 [id number] Univers 18:10:00 21:41:00 Umm Velasco 350.1.13.10 ity of [place] 4.2.7.2.686 [facility] [place] [phone] [facility] 084 Branch 2020-05-26 2020-05-26 Orders Doctor COTA 1.2.840.114 [id number] Univers 00:00:00 00:00:00 Only Unassigned, KATIE 350.1.13.10 ity of [place] [facility] 4.2.7.2.686 [place] [phone] [facility] 009 Branch 2020-05-13 2020-05-13 Emergency [facility] 1.2.840.114 [id number] Univers 11:30:00 17:34:00 Dottie Velasco 350.1.13.10 ity of [place].2.[place] [phone] [facility] 084 Branch 2020-05-13 2020-05-13 Urgent Provider, [facility] 1.2.840.114 [id number] Univers 10:10:06 11:10:27 Care Sarah Orantes [facility] 350.1.13.10 ity of [place] 4.2.7.2.686 [place] Professio [phone] [facility] 044 [place] Office Building One 2020-05-13 2020-05-13 Outpatient [facility] [id number] Univers 11:00:00 11:00:00 [id number] ity [facility] 2020-05-13 2020-05-13 Outpatient R [facility] [id number] Univers 11:00:00 11:00:00 SARAH ity [facility] 2020-05-13 2020-05-13 Orders Doctor CIPRIANO 1.2.840.114 [id number] Univers 00:00:00 00:00:00 Only Unassigned, KATIE 350.1.13.10 ity of [place] [facility] 4.2.7.2.686 [place] [phone] [facility] 009 [place] 2020-04-19 2020-04-19 [facility] 1.2.840.114 [id number] Univers 00:00:00 00:00:00 Johnson Velasco 350.1.13.10 ity of [place].2.[place] [phone] [facility] 092 [facility] 2020-04-09 2020-04-09 [facility] 1.2.840.114 [id number] Univers 00:00:00 00:00:00 Johnson Velasco 350.1.13.10 ity of [place] [phone] Mt dicri nal 092 [facility] 2020-03-23 2020-03-23 Liam Casillase, [facility] 1.2.840.114 [id number] Univers 09:29:15 10:11:33 Visit Johnson Velasco 350.1.13.10 ity of [place].2.[place] [phone] Mt dical nal 092 [facility] 2020-03-23 2020-03-23 Outpatient R PHILLIP [facility] [id number] Univers 09:20:00 09:20:00 JOHNSON FISHER [id number] [facility] 2020-03-23 2020-03-23 Outpatient R PHILLIPJOHNSON Alfredo [facility] [id number] Univers 09:20:00 09:20:00 JOHNSON FISHER [facility] 2020-03-15 2020-03-15 Refill [facility] 1.2.840.114 [id number] Univers 00:00:00 00:00:00 Johnson Velasco 350.1.13.10 ity of [place].2.[place] [phone] [facility] 092 [facility] 2019-12-10 2019-12-10 Orders Doctor CIPRIANO 1.2.840.114 [id number] Univers 00:00:00 00:00:00 Only Unassigned, KATIE 350.1.13.10 ity of [place] [facility] 4.2.7.2.686 [place] [phone] [address] 2019-12-09 2019-12-09 Case [facility] 1.2.840.114 [id number] Univers 00:00:00 00:00:00 Management Kari [place] 350.1.13.10 ity of [place].2.[place] [phone] Mt dical critical access hospital 204 [facility] 2019-12-08 2019-12-08 Emergency Rohit [facility] 1.2.837.588 [id number] Univers 11:01:00 14:17:00 Lesley Velasco 350.1.13.10 i ty of [place].2.[place] [phone] [facility] 084 [place] 2019-12-08 2019-12-08 Office [facility] 1.2.840.114 [id number] Univers 09:53:04 10:44:29 Visit Abhijit Velasco 350.1.13.10 i ty of [place]2.[place].2.[place] [phone] [facility] 204 [facility] 2019-12-08 2019-12-08 Outpatient R [facility] [id number] Univers 10:15:00 10:15:00 ABHIJIT [id number] ity of [facility] 2019-12-08 2019-12-08 Outpatient R [facility] [id number] Univers 10:15:00 10:15:00 ABHIJIT ity of [facility] 2019-12-08 2019-12-08 Orders Doctor CIPRIANO 1.2.840.114 [id number] Univers 00:00:00 00:00:00 Only Unassigned, KATIE 350.1.13.10 ity of [place] [facility] 4.2.7.2.686 [place] [phone] [facility] 009 [place] 2019-12-06 2019-12-06 [facility] Phillip, [facility] 1.2.840.114 [id number] Univers 00:00:00 00:00:00 Johnson Velasco 350.1.13.10 ity of [place] [phone] [facility] 092 [facility] 2019-10-17 2019-10-17 [facility] 1.2.840.114 [id number] Univers 00:00:00 00:00:00 Johnson Velasco 350.1.13.10 ity of [place] [phone] [facility] 092 [facility] 2019-09-29 2019-09-29 Orders Doctor CIPRIANO 1.2.840.114 [id number] Univers 00:00:00 00:00:00 Only Unassigned, KATIE 350.1.13.10 ity of [place] [facility] 4.2.7.2.686 [place] [phone] [address] 2019-09-23 2019-09-23 [facility] 1.2.840.114 [id number] Univers 00:00:00 00:00:00 Johnson Gopal Velasco 350.1.13.10 ity of [place] [phone] [address] 2019-08-07 2019-08-07 [facility] 1.2.840.114 [id number] Univers 00:00:00 00:00:00 Johnson Herron Krista 350.1.13.10 ity of [place] [phone] [address] 2019-05-21 2019-05-21 [place] [facility] 1.2.840.114 [id number] Univers 00:00:00 00:00:00 Johnson Herron Krista 350.1.13.10 ity of [place].2.[place] [phone] [address] 2019-04-24 2019-04-24 [facility] 1.2.840.114 [id number] Univers 00:00:00 00:00:00 Johnson Herron Krista 350.1.13.10 ity of [place].2.[place] [phone] [address] 2019-04-17 2019-04-17 [facility] 1.2.840.114 [id number] Univers 00:00:00 00:00:00 Johnson Herron Krista 350.1.13.10 ity of [place].2.[place] [phone] [address] 2019-04-07 2019-04-07 [place] [facility] 1.2.840.114 [id number] Univers 00:00:00 00:00:00 Johnson Velasco 350.1.13.10 ity of [place].7.2.[place] [phone] Mt dical nal 092 [facility] 2019-03-28 2019-03-28 Wound Care Coordinator 2, Adc Lab [facility] 1.2.840.114 [id number] Univers 11:02:20 11:17:20 Visit Johnson Fisher 350.1.13 .10 ity of [place].2.[place] [phone] Mt dical nal 353 [facility] 2019-03-28 2019-03-28 Office Phillip [facility] 1.2.840.114 [id number] Univers 09:56:36 10:59:16 Visit Johnson Velasco 350.1.13.10 [place] [phone] Mt dical nal 092 [facility] 2019-03-28 2019-03-28 Orders Doctor CIPRIANO [id number] Univers 00:00:00 00:00:00 Only Unassigned, KATIE 350.1.13.10 [facility]y [facility] [id number] [place] as [phone] [address] 2018-11-05 2018-11-05 Emergency E [facility] [id number] 11:03:00 11:03:00 [facility] 2017-08-24 2017-08-24 [facility] [id number] Common 08:45:00 08:45:00 [employer] [facility] [address] [facility] 2017-08-01 2017-08-01 [facility] [id number] Common 10:15:00 10:15:00 [employer] [facility] [facility] Test Description Test Time Test Comments Results Result Comments Source ACTIVATED NANI PALACIOSJUAN JOSE AMAN 2021-10-20 23:16:59 Test Item Value Reference Range Interpretation Comme nts APTT Patient (test code = See_Comment [ Automated message] The 3173-2) system which ge nerated this result tra nsmitted reference range : 23 - 38 Seconds. The re ference range was not u sed to interpret this result as normal/abnormal . ANTHONY (test code = ANTHONY) The [facility] patient population mean normal value for aPTT is 30 seconds. Lab Interpretation (test Normal code = 41544-6) [facility] [id number] 23:15:01 Test Item Value Reference Range Interpretation Comments PROTIME PATIENT (test See_Comment H [Auto mated message] code = 5964-2) The system [employer] generated this result transmitted ref erence range: 12.0 - 1 4.7 Seconds. The reference range was not used to int erpret this result as normal/abnormal . INR (test code = 6301-6) Nor mal INR <1.1; Warfarin Therap eutic range 2.0 to 3. 0 or 2.5 to 3.5, dep ending upon the indica tions. Lab Interpretation (test Abnormal code = 18803-8) [facility] (10124)2021-10-20 22:51:53 Test Item Value Reference Range Interpretation Comments NA (test code = 137 mmol/L 135-145 0212924465) K (test code = 5.1 mmol/L 3.5-5 H 4461836080) CL (test code = 105 mmol/L 98-108 0323722060) CO2 TOTAL (test code = 22 mmol/L 23-31 L 2889431950) AGAP (test code = 2-16 6758695582) BUN (test code = 27 mg/dL 7-23 H 9816915940) GLUCOSE (test code = 139 mg/dL 70-110 H 4959456671) CREATININE (test code = 1.23 mg/dL 0.5-1.04 H 2271474697) TOTAL BILI (test code = 0.1-1.1 L 5060458341) CALCIUM (test code = 8.8 mg/dL 8.6-10.6 4444935592) T PROTEIN (test code = 7.1 g/dL 6.3-8.2 5649611334) ALBUMIN (test code = 4.5 g/dL 3.5-5 7456763971) ALK PHOS (test code = 158 U/L 34-122 H 0073960488) ALTv (test code = 130 U/L 5-35 H 1742-6) AST(SGOT) (test code = 70 U/L 13-40 H 5450318535) eGFR (test code = mL/min/1.73m2 6428475327) ANTHONY (test code = ANTHONY) Association of [...] tests). Lab Interpretation Abnormal (test code = 76497-2) [facility] WITH [id number] 22:39:51 Test Item Value Reference Range Interpretation Comments WBC (test code = See_Comment [Automated 6490-2) message] The sy stem which generated this result transmitted reference range : 4.30 - 11.10 10*3/?L. The reference range was not used to interpret this result as normal/abnormal . RBC (test code = See_Comment L [Automated 249-8) message] The sy stem which generated this result transmitted reference range : 3.93 - 5.25 10*6/?L. The reference range was not used to interpret this result as normal/abnormal . HGB (test code = 8.9 g/dL 11.6-15 L 718-7) HCT (test code = 27.2 % 35.7-45.2 L 4544-3) MCV (test code = 90.7 fL 80.6-95.5 787-2) MCH (test code = 29.7 pg 25.9-32.8 785-6) MCHC (test code = 32.7 g/dL 31.6-35.1 786-4) RDW-SD (test code = 51.7 fL 39-49.9 H 08132-1) RDW-CV (test code = 15.5 % 12-15.5 788-0) PLT (test code = See_Comment [Automated 777-3) message] The sy stem which generated this result transmitted reference range : 166 - 358 10*3/ ?L. The reference r miky was not used to interpret this result as normal/abnormal . MPV (test code = 10.2 fL 9.5-12.9 54756-1) NRBC/100 WBC (test See_Comment [Automat ed code = 7906199313) message] The system which generated this result transmitted reference range : 0.0 - 10.0 /100 WBCs. The refer ence range was not u sed to interpret th is result as normal/abnormal . NRBC x10^3 (test code See_Comment [Auto mated = 4009196708) message] The s ystem which generated this result transmitted reference range : 10*3/?L. The reference range was not used to interpret this result as normal/abnormal . GRAN MAT (NEUT) % 83.6 % (test code = 770-8) IMM GRAN % (test code 0.60 % = 9310995130) LYMPH % (test code = 10.7 % 736-9) MONO % (test code = 5.0 % 5905-5) EOS % (test code = 0.0 % 713-8) BASO % (test code = 0.1 % 706-2) GRAN MAT x10^3(ANC) 8.64 10*3/uL 1.88-7.09 H (test code = 4974258559) IMM GRAN x10^3 (test 0.06 10*3/uL 0-0.06 code = 5024407003) LYMPH x10^3 (test code 1.11 10*3/uL 1.32-3.29 L = 731-0) MONO x10^3 (test code 0.52 10*3/uL 0.33-0.92 = 742-7) EOS x10^3 (test code = 0.03-0.39 L 711-2) BASO x10^3 (test code 0.01-0.07 = 704-7) Lab Interpretation Abnormal (test code = 94045-6) [facility] CenterAC [facility] + LACTIC [id number] 14:22:59 Test Item Value Reference Range Interpretation Comments PH (test code = 7.32-7.42 9867157010) PCO2 ZULEYMA (test code = See_Comment [Auto mated 5882541028) message] The sy stem which generated this result transmitted reference range : 41 - 51 mmHg. The reference range was not used to interpret this result as normal/abnormal . PO2 ZULEYMA (test code = See_Comment [Autom ated 6286815310) message] The sy stem which generated this result transmitted reference range : 25 - 40 mmHg. The reference range was not used to interpret this result as normal/abnormal . HCO3 ZULEYMA (test code = See_Comment L [Auto mated 0306075214) message] The sy stem which generated this result transmitted reference range : 24 - 28 mEq/L. The reference range was not used to interpret this result as normal/abnormal . AC VBE(BEAKER) (test mEq/L code = 8560636912) THB ZULEYMA (test code = 14.7 g/dL 12-16 2132606819) %O2HB ZULEYMA (test code = 50.1 % 52-63 L 7391526132) %COHB ZULEYMA (test code = 1.0 % 0-1.5 5540487869) %METHB ZULEYMA (test code = 0.3 % 0.4-1.5 L 3919154212) VOL%O2 ZULEYMA (test code = 10.3 % 6-12 4156405999) NA (test code = 139 mmol/L 135-145 5414692989) K+ (test code = 3.7 mmol/L 3.5-5 6759389460) AC CA IONZ (test code = 5.10 mg/dL 4.5-5.3 4414811704) GLUCOSE (test code = 92 mg/dL 70-110 3349576481) LACTIC ACID (test code 1.49 mmol/L 0.5-2.2 = 9400462064) Lab Interpretation Abnormal (test code = 33135-1) [facility] METABOLIC PANEL (NA, K, CL, CO2, GLUCOSE, BUN, CREATININE, CA)2020-12-12 11:05:50 Test Item Value Reference Range Interpretation Comments NA (test code = 133 mmol/L 135-145 L 9120734747) K (test code = 5.0 mmol/L 3.5-5.0 0929157338) CL (test code = 105 mmol/L 98-108 2823639210) CO2 TOTAL (test code = 24 mmol/L 23-31 2548163398) AGAP (test code = 2-16 1499078280) BUN (test code = 9 mg/dL 7-23 3745785745) GLUCOSE (test code = 93 mg/dL 70-110 3173662876) CREATININE (test code = 0.57 mg/dL 0.50-1.04 6836691404) CALCIUM (test code = 9.8 mg/dL 8.6-10.6 1260418001) eGFR (test code = mL/min/1.73m2 6629302532) ANTHONY (test code = ANTHONY) Association of [...] tests). Lab Interpretation Abnormal (test code = 35915-6) [facility]2021-[facility] 11:05:50 Test Item Value Reference Range Interpretation Comments MAGNESIUM (test code = 4317138737) 2.3 mg/dL 1.7-2.4 Lab Interpretation (test code = Normal 13186-6) [facility]2021-[facility] 11:05:30 Test Item Value Reference Range Interpretation Comments PHOSPHORUS (test code = 3184473264) 4.1 mg/dL 2.5-5.0 Lab Interpretation (test code = Normal 03068-7) [facility] CenterOSMOLALITY, SERUM OR [id number] 17:26:02 Test Item Value Reference Range Interpretation Comments OSMOLALITY (test code = See_Comment [Au tomated message] 5710577841) The system [employer] generated this result transmitted ref erence range: 278 - 30 5 mOsm/kg. The re ference range was not u sed to interpret this result as normal/abnor mal. Lab Interpretation (test Normal code = 50951-5) [facility] CenterVancomycin Random [id number] 15:46:31 Test Item Value Reference Range Interpretation Comments VANCO RANDOM (test code = 8.9 ug/mL 8496493998) [facility]BASIC [facility] (NA, K, CL, CO2, GLUCOSE, BUN, CREATININE, CA)2020-12-11 10:02:40 Test Item Value Reference Range Interpretation Comments NA (test code = 135 mmol/L 135-145 7055519250) K (test code = 4.7 mmol/L 3.5-5.0 7514524913) CL (test code = 107 mmol/L 98-108 0740279490) CO2 TOTAL (test code 24 mmol/L 23-31 = 2837909406) AGAP (test code = 2-16 9528099971) BUN (test code = 9 mg/dL 7-23 9595990494) GLUCOSE (test code = 98 mg/dL 70-110 3813655059) CREATININE (test code 0.62 mg/dL 0.50-1.04 = 4249829347) CALCIUM (test code = 9.5 mg/dL 8.6-10.6 2480689922) eGFR (test code = mL/min/1.73m2 3206878139) ANTHONY (test code = ANTHONY) Association of [...] or urine or abnormalities in imaging tests). [facility] WITH [id number] 09:45:31 Test Item Value Reference Range Interpretation Comments WBC (test code = See_Comment [Automated 2790-2) message] The sy stem which generated this [...] (test code = 55.5 fL 39.0-49.9 H 33553-8) RDW-CV (test code = 15.6 % 12.0-15.5 H 788-0) PLT (test code = See_Comment [Automated 777-3) message] The sy stem which generated this result transmitted reference range : 166 - 358 10*3/ ?L. The reference r miky was not used to interpret this result as normal/abnormal . MPV (test code = 11.5 fL 9.5-12.9 09818-4) NRBC/100 WBC (test See_Comment [Automat ed code = 6591771146) message] The system which generated this result transmitted reference range : 0.0 - 10.0 /100 WBCs. The refer ence range was not u sed to interpret th is result as normal/abnormal . NRBC x10^3 (test code See_Comment [Auto mated = 6634791823) message] The s ystem which generated this result transmitted reference range : 10*3/?L. The reference range was not used to interpret this result as normal/abnormal . GRAN MAT (NEUT) % 44.2 % (test code = 770-8) IMM GRAN % (test code 5.40 % = 6363998772) LYMPH % (test code = 35.6 % 736-9) MONO % (test code = 14.1 % 5905-5) EOS % (test code = 0.3 % 713-8) BASO % (test code = 0.4 % 706-2) GRAN MAT x10^3(ANC) 2.99 10*3/uL 1.88-7.09 (test code = 0991538705) IMM GRAN x10^3 (test 0.37 10*3/uL 0.00-0.06 H code = 3131103151) LYMPH x10^3 (test code 2.42 10*3/uL 1.32-3.29 = 731-0) MONO x10^3 (test code 0.96 10*3/uL 0.33-0.92 H = 742-7) EOS x10^3 (test code = <0.03 0.03-0.39 L 711-2) BASO x10^3 (test code 0.03 10*3/uL 0.01-0.07 = 704-7) Lab Interpretation Abnormal (test code = 66663-1) [facility]2021-[facility] 09:37:24 Test Item Value Reference Range Interpretation Comments MAGNESIUM (test code = 6697268957) 2.3 mg/dL 1.7-2.4 Lab Interpretation (test code = Normal 99137-0) [facility]PH[facility]2021-[facility]-30 09:37:04 Test Item Value Reference Range Interpretation Comments PHOSPHORUS (test code = 2157103945) 2.8 mg/dL 2.5-5.0 Lab Interpretation (test code = Normal 73195-7) [facility] CenterURIC [id number] 09:36:44 Test Item Value Reference Range Interpretation Comments URIC ACID (test code = 1717198765) 3.2 mg/dL 2.9-6.0 Lab Interpretation (test code = Normal 46633-2) [facility] CenterBasi Metabolic Panel (NA, K, CL, CO2, GLUCOSE, BUN, CREATININE, CA)2020-12-10 20:08:36 Test Item Value Reference Range Interpretation Comments NA (test code = 126 mmol/L 135-145 L 4208116683) K (test code = 3.7 mmol/L 3.5-5.0 2468923381) CL (test code = 102 mmol/L 98-108 2847803437) CO2 TOTAL (test code = 21 mmol/L 23-31 L 2217486568) AGAP (test code = 2-16 0424324189) BUN (test code = 9 mg/dL 7-23 5121618128) GLUCOSE (test code = 116 mg/dL 70-110 H 3980446364) CREATININE (test code = 0.72 mg/dL 0.50-1.04 1791712369) CALCIUM (test code = 8.9 mg/dL 8.6-10.6 1267920867) eGFR (test code = mL/min/1.73m2 6799726357) ANTHONY (test code = ANTHONY) Association of [...] tests). Lab Interpretation Abnormal (test code = 24169-2) [facility] [id number] 20:01:33 Test Item Value Reference Range Interpretation Comments Blood Culture-Aerobic No organisms No growth Previo us (test code = 77165-5) isolated prelim inary verified result was Culture [...] Culture-Anaerobic isolated preliminar y (test code = 96891-9) verifi ed result was Culture In Progress [...] CDT Lab Interpretation Normal (test code = 52278-4) [facility] CenterBLO[facility] CULTURE [id number] 20:01:33 Test Item Value Reference Range Interpretation Comments Blood Culture-Aerobic No organisms No growth Previo us (test code = 39139-3) isolated prelim inary verified result was Culture [...] Culture-Anaerobic isolated preliminar y (test code = 81431-2) verifi ed result was Culture In Progress [...] CDT Lab Interpretation Normal (test code = 12167-6) [facility]PH[facility]2021-10-29 19:00:05 Test Item Value Reference Range Interpretation Comments PHOSPHORUS (test code = 7752468467) 2.5 mg/dL 2.5-5.0 Lab Interpretation (test code = Normal 10604-6) [facility] CenterCB WITH [id number] 18:49:57 Test Item Value Reference Range Interpretation [...] (test code = 52.4 fL 39.0-49.9 H 79836-5) RDW-CV (test code = 15.2 % 12.0-15.5 788-0) PLT (test code = See_Comment L [Automated 777-3) message] The sy stem which generated this result transmitted reference range : 166 - 358 10*3/ ?L. The reference r miky was not used to interpret this result as normal/abnormal . MPV (test code = 10.8 fL 9.5-12.9 33130-5) NRBC/100 WBC (test See_Comment [Automat ed code = 8382553641) message] The system which generated this result transmitted reference range : 0.0 - 10.0 /100 WBCs. The refer ence range was not u sed to interpret th is result as normal/abnormal . NRBC x10^3 (test code See_Comment [Auto mated = 0585093807) message] The s ystem which generated this result transmitted reference range : 10*3/?L. The reference range was not used to interpret this result as normal/abnormal . GRAN MAT (NEUT) % 47.2 % (test code = 770-8) IMM GRAN % (test code 5.80 % = 6575216875) LYMPH % (test code = 29.2 % 736-9) MONO % (test code = 17.1 % 5905-5) EOS % (test code = 0.4 % 713-8) BASO % (test code = 0.3 % 706-2) GRAN MAT x10^3(ANC) 3.14 10*3/uL 1.88-7.09 (test code = 5786310303) IMM GRAN x10^3 (test 0.39 10*3/uL 0.00-0.06 H code = 1740527555) LYMPH x10^3 (test code 1.95 10*3/uL 1.32-3.29 = 731-0) MONO x10^3 (test code 1.14 10*3/uL 0.33-0.92 H = 742-7) EOS x10^3 (test code = 0.03 10*3/uL 0.03-0.39 711-2) BASO x10^3 (test code <0.03 0.01-0.07 = 704-7) POLYCHROMASIA (test 2+ See_Comment [Automa karly code = 26504-6) message] The system which generated this result transmitted reference range : 2+. The referen ce range was not u sed to interpret th is result as normal/abnormal . BANDS (test code = Increased A 3362060817) Lab Interpretation Abnormal (test code = 58164-2) [facility] CenterVancomycin Trough Level - Draw random trough at [id number] 16:37:29 Test Item Value Reference Range Interpretation Comments VANCO TROUGH (test code 19.4 ug/mL 10.0-20.0 = 4235204917) ANTHONY (test code = ANTHONY) Toxic Range: ?>20 ug/mL 15-20 ug/mL is recommended for severe infection or when Vancomycin RAHEEM is greater than or equal to 2. Lab Interpretation (test Normal code = 16444-7) [facility]MAG[facility]IUM2021-10-29 11:49:21 Test Item Value Reference Range Interpretation Comments MAGNESIUM (test code = 0982944068) 2.1 mg/dL 1.7-2.4 Lab Interpretation (test code = Normal 46467-9) [facility] METABOLIC PANEL (NA, K, CL, CO2, GLUCOSE, BUN, CREATININE, CA)2020-12-10 11:49:05 Test Item Value Reference Range Interpretation Comments NA (test code = 129 mmol/L 135-145 L 8701980923) K (test code = 3.0 mmol/L 3.5-5.0 L 1240625413) CL (test code = 103 mmol/L 98-108 0067647825) CO2 TOTAL (test code = 25 mmol/L 23-31 6741136129) AGAP (test code = 2-16 L 5428845176) BUN (test code = 10 mg/dL 7-23 8502950982) GLUCOSE (test code = 123 mg/dL 70-110 H 3059705772) CREATININE (test code = 0.84 mg/dL 0.50-1.04 6526594798) CALCIUM (test code = 8.9 mg/dL 8.6-10.6 6137421222) eGFR (test code = mL/min/1.73m2 3003620711) ANTHONY (test code = ANTHONY) Association of [...] tests). Lab Interpretation Abnormal (test code = 42582-4) [facility]PH[facility]2021-[facility]-29 11:48:59 Test Item Value Reference Range Interpretation Comments PHOSPHORUS (test code = 1071854516) 1.0 mg/dL 2.5-5.0 L Lab Interpretation (test code = Abnormal 75084-4) [facility] CenterBasic Metabolic Panel (NA, K, CL, CO2, GLUCOSE, BUN, CREATININE, CA)2020-12-10 02:21:51 Test Item Value Reference Range Interpretation Comments NA (test code = 130 mmol/L 135-145 L 7750482998) K (test code = 3.6 mmol/L 3.5-5.0 3434801251) CL (test code = 106 mmol/L 98-108 9332173094) CO2 TOTAL (test code = 21 mmol/L 23-31 L 6624168920) AGAP (test code = 2-16 3217255574) BUN (test code = 9 mg/dL 7-23 0970042048) GLUCOSE (test code = 142 mg/dL 70-110 H 9024063548) CREATININE (test code = 0.59 mg/dL 0.50-1.04 2405258373) CALCIUM (test code = 8.4 mg/dL 8.6-10.6 L 5734430388) eGFR (test code = mL/min/1.73m2 6404529032) ANTHONY (test code = ANTHONY) Association of [...] tests). Lab Interpretation Abnormal (test code = 63196-4) [facility] CenterVancom[facility] Trough Level - Draw no more than 60 minutes before the 1330 dose.2020-12-09 20:29:37 Test Item Value Reference Range Interpretation Comments VANCO TROUGH (test code 20.9 ug/mL 10.0-20.0 H = 6217824113) ANTHONY (test code = ANTHONY) Toxic Range: ?>20 ug/mL 15-20 ug/mL is recommended for severe infection or when Vancomycin RAHEEM is greater than or equal to 2. Lab Interpretation (test Abnormal code = 89349-9) [facility] CenterBASI METABOLIC PANEL (NA, K, CL, CO2, GLUCOSE, BUN, CREATININE, CA)2020-12-09 11:48:35 Test Item Value Reference Range Interpretation Comments NA (test code = 129 mmol/L 135-145 L 5242911796) K (test code = 2.8 mmol/L 3.5-5.0 LL 5360554384) CL (test code = 104 mmol/L 98-108 2438184729) CO2 TOTAL (test code = 20 mmol/L 23-31 L 7720556022) AGAP (test code = 2-16 1947970452) BUN (test code = 10 mg/dL 7-23 9292518427) GLUCOSE (test code = 120 mg/dL 70-110 H 4317033193) CREATININE (test code = 0.68 mg/dL 0.50-1.04 8664668804) CALCIUM (test code = 7.9 mg/dL 8.6-10.6 L 8423724046) eGFR (test code = mL/min/1.73m2 6063523794) ANTHONY (test code = ANTHONY) Association of [...] tests). Lab Interpretation Abnormal (test code = 05570-0) [facility] Test Item Value Reference Range Interpretation Comments MAGNESIUM (test code = 2626395331) 2.2 mg/dL 1.7-2.4 Lab Interpretation (test code = Normal 14913-0) [facility]2021-[facility] 11:46:48 Test Item Value Reference Range Interpretation Comments PHOSPHORUS (test code = 9409252540) 2.4 mg/dL 2.5-5.0 L Lab Interpretation (test code = Abnormal 03841-8) [facility] (NA, K, CL, CO2, GLUCOSE, BUN, CREATININE, CA)2020-12-08 12:06:15 Test Item Value Reference Range Interpretation Comments NA (test code = 130 mmol/L 135-145 L 7202837015) K (test code = 2.8 mmol/L 3.5-5.0 LL 7741192473) CL (test code = 104 mmol/L 98-108 6046930654) CO2 TOTAL (test code = 19 mmol/L 23-31 L 8747577447) AGAP (test code = 2-16 1941269289) BUN (test code = 9 mg/dL 7-23 1490212155) GLUCOSE (test code = 114 mg/dL 70-110 H 3677636487) CREATININE (test code = 0.72 mg/dL 0.50-1.04 7971422794) CALCIUM (test code = 7.9 mg/dL 8.6-10.6 L 3232013909) eGFR (test code = mL/min/1.73m2 8522523337) ANTHONY (test code = ANTHONY) Association of [...] tests). Lab Interpretation Abnormal (test code = 02232-3) [facility]MAG[facility]2021-[facility]-27 11:58:12 Test Item Value Reference Range Interpretation Comments MAGNESIUM (test code = 5433630124) 1.9 mg/dL 1.7-2.4 Lab Interpretation (test code = Normal 62345-6) [facility]2021-[facility] 11:57:52 Test Item Value Reference Range Interpretation Comments PHOSPHORUS (test code = 9896299139) 2.7 mg/dL 2.5-5.0 Lab Interpretation (test code = Normal 81938-4) [facility] CenterVan[facility] Trough Level - Draw no more than 60 minutes before the 0130 dose.2020-12-08 07:49:28 Test Item Value Reference Range Interpretation Comments VANCO TROUGH (test code 18.4 ug/mL 10.0-20.0 = 9273426233) ANTHONY (test code = ANTHONY) Toxic Range: ?>20 ug/mL 15-20 ug/mL is recommended for severe infection or when Vancomycin RAHEEM is greater than or equal to 2. Lab Interpretation (test Normal code = 64640-6) [facility]CB WITH [id number] 13:32:28 Test Item Value Reference Range Interpretation [...] (test code = 50.9 fL 39.0-49.9 H 77019-2) RDW-CV (test code = 15.0 % 12.0-15.5 788-0) PLT (test code = See_Comment [Automated 777-3) message] The sy stem which generated this result transmitted reference range : 166 - 358 10*3/ ?L. The reference r miky was not used to interpret this result as normal/abnormal . MPV (test code = 11.3 fL 9.5-12.9 27420-1) NRBC/100 WBC (test See_Comment [Automat ed code = 6112674973) message] The system which generated this result transmitted reference range : 0.0 - 10.0 /100 WBCs. The refer ence range was not u sed to interpret th is result as normal/abnormal . NRBC x10^3 (test code See_Comment [Auto mated = 1840658345) message] The s ystem which generated this result transmitted reference range : 10*3/?L. The reference range was not used to interpret this result as normal/abnormal . GRAN MAT (NEUT) % 57.6 % (test code = 770-8) IMM GRAN % (test code 4.60 % = 9075682008) LYMPH % (test code = 27.4 % 736-9) MONO % (test code = 9.9 % 5905-5) EOS % (test code = 0.2 % 713-8) BASO % (test code = 0.3 % 706-2) GRAN MAT x10^3(ANC) 3.79 10*3/uL 1.88-7.09 (test code = 5176408069) IMM GRAN x10^3 (test 0.30 10*3/uL 0.00-0.06 H code = 0568333691) LYMPH x10^3 (test code 1.80 10*3/uL 1.32-3.29 = 731-0) MONO x10^3 (test code 0.65 10*3/uL 0.33-0.92 = 742-7) EOS x10^3 (test code = <0.03 0.03-0.39 L 711-2) BASO x10^3 (test code <0.03 0.01-0.07 = 704-7) SCHISTOCYTES (test 1+ A code = 800-3) BANDS (test code = Increased A 8071109575) Lab Interpretation Abnormal (test code = 16840-3) [facility]MAG[facility]20[facility] 11:15:12 Test Item Value Reference Range Interpretation Comments MAGNESIUM (test code = 3326916741) 2.1 mg/dL 1.7-2.4 Lab Interpretation (test code = Normal 85243-8) [facility] (NA, K, CL, CO2, GLUCOSE, BUN, CREATININE, CA)2020-12-07 11:15:11 Test Item Value Reference Range Interpretation Comments NA (test code = 133 mmol/L 135-145 L 3093869403) K (test code = 3.2 mmol/L 3.5-5.0 L 3086861888) CL (test code = 106 mmol/L 98-108 7421900726) CO2 TOTAL (test code = 18 mmol/L 23-31 L 6363803495) AGAP (test code = 2-16 3752558832) BUN (test code = 9 mg/dL 7-23 3582077454) GLUCOSE (test code = 106 mg/dL 70-110 0740704970) CREATININE (test code = 0.64 mg/dL 0.50-1.04 5272034979) CALCIUM (test code = 8.2 mg/dL 8.6-10.6 L 4129844593) eGFR (test code = mL/min/1.73m2 6820845441) ANTHONY (test code = ANTHONY) Association of [...] tests). Lab Interpretation Abnormal (test code = 53756-5) [facility] (NA, K, CL, CO2, GLUCOSE, BUN, CREATININE, CA)2020-12-07 03:01:05 Test Item Value Reference Range Interpretation Comments NA (test code = 130 mmol/L 135-145 L 4053387159) K (test code = 3.4 mmol/L 3.5-5.0 L 4675923946) CL (test code = 105 mmol/L 98-108 5215873090) CO2 TOTAL (test code = 20 mmol/L 23-31 L 9615081028) AGAP (test code = 2-16 [id number]) BUN (test code = 10 mg/dL 7-23 2824812535) GLUCOSE (test code = 117 mg/dL 70-110 H [id number]) CREATININE (test code = 0.69 mg/dL 0.50-1.04 6919207859) CALCIUM (test code = 7.9 mg/dL 8.6-10.6 L 9842748370) eGFR (test code = mL/min/1.73m2 1486551705) ANTHONY (test code = ANTHONY) Association of [...] tests). Lab Interpretation Abnormal (test code = 58991-0) [facility] Metabolic Panel (NA, K, CL, CO2, GLUCOSE, BUN, CREATININE, CA)2020-12-06 17:09:25 Test Item Value Reference Range Interpretation Comments NA (test code = 126 mmol/L 135-145 L [id number]) K (test code = 2.9 mmol/L 3.5-5.0 LL 5262962560) CL (test code = 104 mmol/L 98-108 8382174774) CO2 TOTAL (test code = 13 mmol/L 23-31 L 2750841935) AGAP (test code = 2-16 0757113071) BUN (test code = 11 mg/dL 7-23 1390331836) GLUCOSE (test code = 147 mg/dL 70-110 H 9740228296) CREATININE (test code = 0.80 mg/dL 0.50-1.04 2753353567) CALCIUM (test code = 7.9 mg/dL 8.6-10.6 L 9063054732) eGFR (test code = mL/min/1.73m2 7081461096) ANTHONY (test code = ANTHONY) Association of [...] tests). Lab Interpretation Abnormal (test code = 59234-9) [facility] [id number] 17:05:09 Test Item Value Reference Range Interpretation Comments MAGNESIUM (test code = 9849828957) 2.3 mg/dL 1.7-2.4 Lab Interpretation (test code = Normal 95713-2) [facility] with [id number] 16:52:56 Test Item Value Reference Range Interpretation [...] (test code = 50.9 fL 39.0-49.9 H 33559-3) RDW-CV (test code = 15.0 % 12.0-15.5 788-0) PLT (test code = See_Comment [Automated 777-3) message] The sy stem which generated this result transmitted reference range : 166 - 358 10*3/ ?L. The reference r miky was not used to interpret this result as normal/abnormal . MPV (test code = 11.4 fL 9.5-12.9 86092-9) NRBC/100 WBC (test See_Comment [Automat ed code = 0910983826) message] The system which generated this result transmitted reference range : 0.0 - 10.0 /100 WBCs. The refer ence range was not u sed to interpret th is result as normal/abnormal . NRBC x10^3 (test code <0.01 See_Comment [Auto mated = 9781476643) message] The s ystem which generated this result transmitted reference range : 10*3/?L. The reference range was not used to interpret this result as normal/abnormal . GRAN MAT (NEUT) % 53.9 % (test code = 770-8) IMM GRAN % (test code 3.10 % = 8489838204) LYMPH % (test code = 30.8 % 736-9) MONO % (test code = 11.3 % 5905-5) EOS % (test code = 0.3 % 713-8) BASO % (test code = 0.6 % 706-2) GRAN MAT x10^3(ANC) 3.48 10*3/uL 1.88-7.09 (test code = 0095199794) IMM GRAN x10^3 (test 0.20 10*3/uL 0.00-0.06 H code = 1379912646) LYMPH x10^3 (test code 1.99 10*3/uL 1.32-3.29 = 731-0) MONO x10^3 (test code 0.73 10*3/uL 0.33-0.92 = 742-7) EOS x10^3 (test code = <0.03 0.03-0.39 L 711-2) BASO x10^3 (test code 0.04 10*3/uL 0.01-0.07 = 704-7) BANDS (test code = Increased A 2234052959) Lab Interpretation Abnormal (test code = 96616-0) [facility] 00:30:48 Test Item Value Reference Range Interpretation Comments MAGNESIUM (test code = 6108111342) 1.4 mg/dL 1.7-2.4 L Lab Interpretation (test code = Abnormal 26930-2) [facility] (NA, K, CL, CO2, GLUCOSE, BUN, CREATININE, CA)2020-12-06 00:00:55 Test Item Value Reference Range Interpretation Comments NA (test code = 135 mmol/L 135-145 6641013025) K (test code = 2.3 mmol/L 3.5-5.0 LL 6213949296) CL (test code = 116 mmol/L 98-108 H 8340133287) CO2 TOTAL (test code = 14 mmol/L 23-31 L 6148403874) AGAP (test code = 2-16 0271706742) BUN (test code = 16 mg/dL 7-23 4823433557) GLUCOSE (test code = 98 mg/dL 70-110 3422640776) CREATININE (test code = 0.85 mg/dL 0.50-1.04 3171797156) CALCIUM (test code = 5.7 mg/dL 8.6-10.6 LL 5640913489) eGFR (test code = mL/min/1.73m2 1357541825) ANTHONY (test code = ANTHONY) Association of [...] tests). Lab Interpretation Abnormal (test code = 75137-6) [facility] CenterTHY[facility]ID STIMULATING [id number] 20:54:58 Test Item Value Reference Range Interpretation Comments TSH (test code = See_Comment [Automated message] 4816985091) The system [employer] generated this result transmitted ref erence range: 0.45 - 4 .70 mIU/L. The refe rence range was not u sed to interpret this result as normal/abnor mal. Lab Interpretation (test Normal code = 62759-1) [facility] CenterLIPASE2021-[facility] 20:23:21 Test Item Value Reference Range Interpretation Comments LIPASE (test code = 0646124059) 130 U/L 0-220 Lab Interpretation (test code = Normal 67541-4) [facility] CenterCB WITH [id number] 19:46:50 Test Item Value Reference Range Interpretation [...] RDW-SD (test code = 49.2 fL 39.0-49.9 14702-9) RDW-CV (test code = 14.8 % 12.0-15.5 788-0) PLT (test code = See_Comment [Automated 777-3) message] The system which generated this result transmitted reference range : 166 - 358 10*3/?L. The reference range was not used to interpret this result as normal/abnormal . MPV (test code = 11.9 fL 9.5-12.9 43384-4) NRBC/100 WBC (test See_Comment [Automat ed code = 6930635389) message] The system which generated this result transmitted reference range : 0.0 - 10.0 /100 WBCs. The reference range was not used to interpret this result as normal/abnormal . NRBC x10^3 (test code See_Comment [Auto mated = 7268648169) message] The system which generated this result transmitted reference range : 10*3/?L. The reference range was not used to interpret this result as normal/abnormal . GRAN MAT (NEUT) % 45.3 % (test code = 770-8) IMM GRAN % (test code 1.60 % = 9820598306) LYMPH % (test code = 41.5 % 736-9) MONO % (test code = 10.4 % 5905-5) EOS % (test code = 0.6 % 713-8) BASO % (test code = 0.6 % 706-2) GRAN MAT x10^3(ANC) 3.18 10*3/uL 1.88-7.09 (test code = 1656086413) IMM GRAN x10^3 (test 0.11 10*3/uL 0.00-0.06 H code = 2495229993) LYMPH x10^3 (test 2.91 10*3/uL 1.32-3.29 code = 731-0) MONO x10^3 (test code 0.73 10*3/uL 0.33-0.92 = 742-7) EOS x10^3 (test code 0.04 10*3/uL 0.03-0.39 = 711-2) BASO x10^3 (test code 0.04 10*3/uL 0.01-0.07 = 704-7) ROULEAUX (test code = Present See_Comment A [Auto mated 7648-4) message] The system which generated this result transmitted reference range : (none). The reference range was not used to interpret this result as normal/abnormal . SCHISTOCYTES (test 1+ A code = 800-3) BANDS (test code = MARKED INCREASED A 7535825561) LG GRAN LYMPHS (test Rare Rare code = 0085893214) REACT LYMPHS (test Rare code = 1545643586) TOXIC CHANGES (test Present A code = 803-7) Lab Interpretation Abnormal (test code = 87431-5) [facility] GLUCOSE(AGE >30DAYS)2020-12-05 19:44:00 Test Item Value Reference Range Interpretation Comments POCT Glu (age>30days) (test code = 154 mg/dL 70-110 A 3342) Lab Interpretation (test code = Abnormal 61873-8) [facility] CenterTroponin [id number] 19:21:17 Test Item Value Reference Interpretation Comments Range TROPONIN I (test 0.008 ng/mL See_Comment [Automated code = 9422893529) message] The system which generated this result [...] biotin. Lab Interpretation Normal (test code = 99955-0) [facility]. METABOLIC PANEL (26146)2020-12-05 19:10:58 Test Item Value Reference Range Interpretation Comments NA (test code = 122 mmol/L 135-145 L 1105183198) K (test code = 3.2 mmol/L 3.5-5.0 L 3146715366) CL (test code = 97 mmol/L 98-108 L 3656184106) CO2 TOTAL (test code = 16 mmol/L 23-31 L 4505622480) AGAP (test code = 2-16 0994470545) BUN (test code = 21 mg/dL 7-23 6562073123) GLUCOSE (test code = 154 mg/dL 70-110 H 9749947806) CREATININE (test code = 1.40 mg/dL 0.50-1.04 H 9094318052) TOTAL BILI (test code = 0.6 mg/dL 0.1-1.3 8673411321) CALCIUM (test code = 8.6 mg/dL 8.6-10.6 6132197330) T PROTEIN (test code = 5.7 g/dL 6.3-8.2 L 2259620368) ALBUMIN (test code = 3.0 g/dL 3.5-5.0 L 2686816355) ALK PHOS (test code = 187 U/L 34-122 H 0998715917) ALTv (test code = 43 U/L 5-35 H 1742-6) AST(SGOT) (test code = 66 U/L 13-40 H 3005921422) eGFR (test code = mL/min/1.73m2 4246942040) ANTHONY (test code = ANTHONY) Association of [...] tests). Lab Interpretation Abnormal (test code = 11905-4) [facility]58 Test Item Value Reference Range Interpretation Comments MAGNESIUM (test code = 7003987254) 1.8 mg/dL 1.7-2.4 Lab Interpretation (test code = Normal 43342-9) [facility] CenterPOCT [id number] 18:53:00 Test Item Value Reference Range Interpretation Comments POCT PREG (test code = 1605) negative POCT PREG LOT # (test code = 3575) [id number] POCT PREG TEST DATE (test 2022-02-11 code = 3576) Lab Interpretation (test code = Normal 53615-7) [facility] CenterANTI[facility]SSA(RO)2020-08-10 17:06:47 Test Item Value Reference Range Interpretation Comments ANTI-SSA(RO) (test code = Negative Negative 5069434721) ANTHONY (test code = ANTHONY) Positive - Antibody detected.Negative - No antibody detected. Lab Interpretation (test Normal code = 12154-4) [facility]ANT[facility]-SSB(LA)2020-08-10 17:06:47 Test Item Value Reference Range Interpretation Comments Anti-SSB(LA) (test code = Negative Negative 1991100816) ANTHONY (test code = ANTHONY) Positive - Antibody detected.Negative - No antibody detected. Lab Interpretation (test Normal code = 26207-8) [facility] CenterRHEUMATOID [id number] 14:42:16 Test Item Value Reference Range Interpretation Comments RF (test code = <20 See_Comment [Automated message] 5842806018) The system [employer] generated this result transmitted ref erence range: <20 IU/m L. The reference range was not used to int erpret this result as normal/abnormal . Lab Interpretation (test Normal code = 22462-8) [facility]-REACTIVE [id number] 14:41:04 Test Item Value Reference Range Interpretation Comments CRP (test code = 5430642180) 0.3 mg/dL <0.8 Lab Interpretation (test code = Normal 85440-0) [facility] OR LEXX ONLY - [id number] 09:50:30 Test Item Value Reference Range Interpretation Comments RPR (Qualitative) (test code = Nonreactive Nonreactive 87504-3) Lab Interpretation (test code = Normal 20064-1) [facility] 1/2 AG-AB WITH [id number] 20:09:42 Test Item Value Reference Range Interpretation Comments HIV Negative Negative Semi-quantitative (test code = 21916-4) ANTHONY (test code = Non-reactive for HIV-1 ANTHONY) antigen and HIV-1/HIV-2 antibodies. ?No laboratory evidence of HIV infection. ?Repeat in 2-4 weeks if acute HIV infection is suspected. [facility] CenterSEDIMENTATION [id number] 19:49:09 Test Item Value Reference Range Interpretation Comments ESR (test code = See_Comment H [Automated message] 9914287995) The system [employer] generated this result transmitted ref erence range: 0 - 20 m m/HR. The reference r miky was not used to interpret this result as normal/abnor mal. Lab Interpretation (test Abnormal code = 71747-2) [facility]. METABOLIC PANEL (47335)2020-08-09 19:29:16 Test Item Value Reference Range Interpretation Comments NA (test code = 133 mmol/L 135-145 L 3127861914) K (test code = 4.4 mmol/L 3.5-5.0 5557650415) CL (test code = 97 mmol/L 98-108 L 8521015781) CO2 TOTAL (test code = 24 mmol/L 23-31 1466401944) AGAP (test code = 2-16 2426523144) BUN (test code = 21 mg/dL 7-23 4577377481) GLUCOSE (test code = 154 mg/dL 70-110 H 6332654834) CREATININE (test code = 0.86 mg/dL 0.50-1.04 6457908468) TOTAL BILI (test code = 0.5 mg/dL 0.1-1.1 0868188476) CALCIUM (test code = 10.0 mg/dL 8.6-10.6 1199603514) T PROTEIN (test code = 8.0 g/dL 6.3-8.2 7455626687) ALBUMIN (test code = 5.1 g/dL 3.5-5.0 H 1321964452) ALK PHOS (test code = 85 U/L 34-122 4761882494) ALTv (test code = 36 U/L 5-35 H 1742-6) AST(SGOT) (test code = 24 U/L 13-40 0344491048) eGFR (test code = mL/min/1.73m2 9202572515) ANTHONY (test code = ANTHONY) Association of [...] tests). Lab Interpretation Abnormal (test code = 22558-3) [facility] [id number] 18:21:29 Test Item Value Reference Range Interpretation Comments APPEARANCE (test code = Clear Clear 5053726240) COLOR (test code = Yellow Yellow 3623013857) PH (test code = 4.8-8.0 7280885797) SP GRAVITY (test code = 1.003-1.030 7644149255) GLU U QUAL (test code = Normal Normal 5809746418) BLOOD (test code = Negative Negative 1467778639) KETONES (test code = Negative Negative 0643494529) PROTEIN (test code = Negative Negative 2887-8) UROBILIN (test code = Normal Normal 9398382187) BILIRUBIN (test code = Negative Negative 6108955548) NITRITE (test code = Negative Negative 7493650518) LEUK MURRAY (test code = Negative Negative 3712418723) RBC/HPF (test code = <1 See_Comment [Autom ated message] 5485313401) The system [employer] generated this result transmitted ref erence range: 0 - 3 HP F. The reference range was not used to int erpret this result as normal/abnormal . WBC/HPF (test code = See_Comment [Autom ated message] 7065077674) The system [employer] generated this result transmitted ref erence range: 0 - 5 HP F. The reference range was not used to int erpret this result as normal/abnormal . BACTERIA (test code = Negative Negative 9114321727) MUCOUS (test code = Slight Negative LPF A 2663839384) SQ EPITH (test code = <1 HPF 1524908288) Lab Interpretation (test Abnormal code = 88600-4) [facility] CenterURINALYSIS2021-06-28 18:21:29 Test Item Value Reference Range Interpretation Comments APPEARANCE (test code = Clear Clear 7479607559) COLOR (test code = Yellow Yellow 0332483914) PH (test code = 4.8-8.0 8081038273) SP GRAVITY (test code = 1.003-1.030 2628375242) GLU U QUAL (test code = Normal Normal 7399931428) BLOOD (test code = Negative Negative 9800306118) KETONES (test code = Negative Negative 4324562450) PROTEIN (test code = Negative Negative 2887-8) UROBILIN (test code = Normal Normal 9251123390) BILIRUBIN (test code = Negative Negative 8440202385) NITRITE (test code = Negative Negative 6877078363) LEUK MURRAY (test code = Negative Negative 1803321423) RBC/HPF (test code = <1 See_Comment [Autom ated message] 3012114566) The system [employer] generated this result transmitted ref erence range: 0 - 3 HP F. The reference range was not used to int erpret this result as normal/abnormal . WBC/HPF (test code = See_Comment [Autom ated message] 2661045284) The system whic h generated this result transmitted ref erence range: 0 - 5 HP F. The reference range was not used to int erpret this result as normal/abnormal . BACTERIA (test code = Negative Negative 3287433061) MUCOUS (test code = Slight Negative LPF A 9079463748) SQ EPITH (test code = <1 HPF 5434731349) Lab Interpretation (test Abnormal code = 77525-2) [facility] WITH [id number] 17:36:57 Test Item Value Reference Range Interpretation [...] RDW-SD (test code = 47.8 fL 39.0-49.9 31944-4) RDW-CV (test code = 13.4 % 12.0-15.5 788-0) PLT (test code = See_Comment [Automated 777-3) message] The sy stem which generated this result transmitted reference range : 166 - 358 10*3/ ?L. The reference r miky was not used to interpret this result as normal/abnormal . MPV (test code = 9.4 fL 9.5-12.9 L 00148-9) NRBC/100 WBC (test See_Comment [Automat ed code = 5788370801) message] The system which generated this result transmitted reference range : 0.0 - 10.0 /100 WBCs. The refer ence range was not u sed to interpret th is result as normal/abnormal . NRBC x10^3 (test code <0.01 See_Comment [Auto mated = 9171658049) message] The s ystem which generated this result transmitted reference range : 10*3/?L. The reference range was not used to interpret this result as normal/abnormal . GRAN MAT (NEUT) % 80.8 % (test code = 770-8) IMM GRAN % (test code 1.90 % = 6374518205) LYMPH % (test code = 15.0 % 736-9) MONO % (test code = 2.1 % 5905-5) EOS % (test code = 0.1 % 713-8) BASO % (test code = 0.1 % 706-2) GRAN MAT x10^3(ANC) 6.79 10*3/uL 1.88-7.09 (test code = 9440905950) IMM GRAN x10^3 (test 0.16 10*3/uL 0.00-0.06 H code = 7104420628) LYMPH x10^3 (test code 1.26 10*3/uL 1.32-3.29 L = 731-0) MONO x10^3 (test code 0.18 10*3/uL 0.33-0.92 L = 742-7) EOS x10^3 (test code = <0.03 0.03-0.39 L 711-2) BASO x10^3 (test code <0.03 0.01-0.07 = 704-7) Lab Interpretation Abnormal (test code = 68355-4) [facility] WITH [id number] 17:36:57 Test Item Value Reference Range Interpretation [...] RDW-SD (test code = 47.8 fL 39.0-49.9 31675-8) RDW-CV (test code = 13.4 % 12.0-15.5 788-0) PLT (test code = See_Comment [Automated 777-3) message] The sy stem which generated this result transmitted reference range : 166 - 358 10*3/ ?L. The reference r miky was not used to interpret this result as normal/abnormal . MPV (test code = 9.4 fL 9.5-12.9 L 45815-3) NRBC/100 WBC (test See_Comment [Automat ed code = 8062482503) message] The system which generated this result transmitted reference range : 0.0 - 10.0 /100 WBCs. The refer ence range was not u sed to interpret th is result as normal/abnormal . NRBC x10^3 (test code <0.01 See_Comment [Auto mated = 6555937964) message] The s ystem which generated this result transmitted reference range : 10*3/?L. The reference range was not used to interpret this result as normal/abnormal . GRAN MAT (NEUT) % 80.8 % (test code = 770-8) IMM GRAN % (test code 1.90 % = 5841346649) LYMPH % (test code = 15.0 % 736-9) MONO % (test code = 2.1 % 5905-5) EOS % (test code = 0.1 % 713-8) BASO % (test code = 0.1 % 706-2) GRAN MAT x10^3(ANC) 6.79 10*3/uL 1.88-7.09 (test code = 0150956135) IMM GRAN x10^3 (test 0.16 10*3/uL 0.00-0.06 H code = 0583789549) LYMPH x10^3 (test code 1.26 10*3/uL 1.32-3.29 L = 731-0) MONO x10^3 (test code 0.18 10*3/uL 0.33-0.92 L = 742-7) EOS x10^3 (test code = <0.03 0.03-0.39 L 711-2) BASO x10^3 (test code <0.03 0.01-0.07 = 704-7) Lab Interpretation Abnormal (test code = 78163-8) [facility] CenterMENINGITIS/ENCEPHALITIS PANEL BY [id number] 22:27:23 Test Item Value Reference Range Interpretation Comments Escherichia coli K1 Negative Negative, (test code = 60160-2) Indeterminate, See Comment Haemophilus influenzae Negative Negative, (test code = 56526-6) Indeterminate, See Comment Listeria monocytogenes Negative Negative, (test code = 93305-8) Indeterminate, See Comment Neisseria meningitidis Negative Negative, (encapsulated) (test Indeterminate, code = 48320-6) See Comment Streptococcus agalactiae Negative Negative, (test code = 47360-4) Indeterminate, See Comment Streptococcus pneumoniae Negative Negative, (test code = 25098-8) Indeterminate, See Comment Cytomegalovirus (test Negative Negative, code = 92169-4) Indeterminate, See Comment Enterovirus (test code = Negative Negative, 76473-7) Indeterminate, See Comment Herpes simplex virus 1 Negative Negative, (test code = 36041-7) Indeterminate, See Comment Herpes simplex virus 2 Negative Negative, (test code = 79638-4) Indeterminate, See Comment Human herpesvirus 6 Negative Negative, (test code = 83524-7) Indeterminate, See Comment Human parechovirus (test Negative Negative, code = 18041-6) Indeterminate, See Comment Varicella zoster virus Negative Negative, (test code = 44801-1) Indeterminate, See Comment Cryptococcus Negative Negative, neoformans/gattii (test Indeterminate, code = 21529-8) See Comment ANTHONY (test code = ANTHONY) Negative:A negative result does not rule-out infection. ?This assay does not test for all potential infectious agents. Positive:A positive test result does not necessarily indicate the presence of viable organism. ? Lab Interpretation (test Normal code = 18419-2) [facility] FLUID DIRECT [id number] 21:52:07 Test Item Value Reference Range Interpretation Comments BF COLOR (test code = Clear 2145477670) BF WBC Count (test See_Comment [Automat ed message] The code = 9567694149) system [facility] generated this result transmit karly reference range : 0 - 5 /?L. The reference r miky was not used to interpr et this result as cassandra l/abnormal. BF RBC Count (test See_Comment [Automat ed message] The code = 7882779337) system [facility] generated this result transmit karly reference range : /?L. The reference range was not used to interpr et this result as cassandra l/abnormal. [facility] FLUID MANUAL [id number] 21:52:07BF SEGSComment: Less than 100 cells counted due to low WBC; Differential is not reported in percent.10 cells counted: 1 Neutrophils, 9 Lymphocytes, 0 Macrophages [facility]#CELS CNTDUTMBLABORATORY SERVICESUnBrown County HospitalROSPINAL FLUID [id number] 20:58:36 Test Item Value Reference Range Interpretation Comments T. PRO CSF (test code = 68.0 mg/dL 15.0-45.0 H 5852966939) UNSPUN BODY FLUID COLOR Light Red (test code = 2875005932) UNSPUN BODY FLUID CLARITY Cloudy (test code = 6986960537) SPUN BODY FLUID COLOR [place] (test code = 3214654516) SPUN BODY FLUID CLARITY Clear (test code = 1025289264) Sediment (test code = The se diment 2050165983) volume is <0.1 mLs of the total fl uid volume of 5cc a nd its color is re d. Lab Interpretation (test Abnormal code = 51903-2) [facility] [id number] 20:58:25 Test Item Value Reference Range Interpretation Comments GLU CSF (test code = 74 mg/dL 50-80 4884143055) UNSPUN BODY FLUID Light Red COLOR (test code = 2402435690) UNSPUN BODY FLUID Cloudy CLARITY (test code = 1989305784) SPUN BODY FLUID COLOR [place] (test code = 2784743914) SPUN BODY FLUID Clear CLARITY (test code = 6754130784) Sediment (test code = The se diment volume is 7684451624) <0.1 mLs of the total fluid volume of 5cc and its color i s red. [facility] CenterXR CHEST 1 [id number] 15:19:43 No acute cardiopulmonary process. Preliminary Report [...] this study and agree with theabove report. [facility]PO[facility] GLUCOSE (AUTOMATED)2020-07-14 15:07:20 Test Item Value Reference Range Interpretation Comments POCT GLU (test code = 3300667755) 98 mg/dL 70-110 Lab Interpretation (test code = Normal 13131-4) [facility] CenterC-REACTIVE [id number] 14:51:17 Test Item Value Reference Range Interpretation Comments CRP (test code = 1341205049) 0.2 mg/dL <0.8 Lab Interpretation (test code = Normal 07079-1) [facility] CenterMAGNESIUM2021-06-02 14:40:38 Test Item Value Reference Range Interpretation Comments MAGNESIUM (test code = 9942973515) 2.1 mg/dL 1.7-2.4 Lab Interpretation (test code = Normal 43959-0) [facility] CenterPhosphorus [id number] 13:50:50 Test Item Value Reference Range Interpretation Comments PHOSPHORUS (test code = 5869476902) 3.1 mg/dL 2.5-5.0 Lab Interpretation (test code = Normal 46837-0) [facility] (NA, K, CL, CO2, GLUCOSE, BUN, CREATININE, CA)2020-07-14 12:41:09 Test Item Value Reference Range Interpretation Comments NA (test code = 136 mmol/L 135-145 0151904246) K (test code = 4.3 mmol/L 3.5-5.0 5397601188) CL (test code = 108 mmol/L 98-108 8476265189) CO2 TOTAL (test code = 17 mmol/L 23-31 L 6880986987) AGAP (test code = 2-16 2002843065) BUN (test code = 22 mg/dL 7-23 7508134787) GLUCOSE (test code = 98 mg/dL 70-110 7718300503) CREATININE (test code = 0.70 mg/dL 0.50-1.04 7842108262) CALCIUM (test code = 9.4 mg/dL 8.6-10.6 4111018421) eGFR (test code = mL/min/1.73m2 1272272900) ANTHONY (test code = ANTHONY) Association of [...] tests). Lab Interpretation Abnormal (test code = 73056-1) [facility] CenterHepatic Function Panel (ALB, T.PRO, BILI T, BU/BC, ALT, AST, ALK PHOS)2020-07-14 12:41:09 Test Item Value Reference Range Interpretation Comments TOTAL BILI (test code = 2452474346) 0.3 mg/dL 0.1-1.1 BILI UNCON (test code = 1383928434) 0.1 mg/dL 0.1-1.1 BILI CONJ (test code = 4649282711) 0.0 mg/dL 0.0-0.3 T PROTEIN (test code = 6698236340) 7.6 g/dL 6.3-8.2 ALBUMIN (test code = 0477243632) 4.6 g/dL 3.5-5.0 ALK PHOS (test code = 8538245887) 120 U/L 34-122 ALTv (test code = 1742-6) 42 U/L 5-35 H AST(SGOT) (test code = 9539500661) 24 U/L 13-40 Lab Interpretation (test code = Abnormal 58132-9) [facility] CenterUrinalysis2021-06-02 10:22:07 Test Item Value Reference Range Interpretation Comments APPEARANCE (test code = Clear Clear 5969136832) COLOR (test code = Yellow Yellow 2360036133) PH (test code = 4.8-8.0 7318601878) SP GRAVITY (test code = 1.003-1.030 6792805300) GLU U QUAL (test code = Normal Normal 8108080488) BLOOD (test code = Negative Negative 7237575704) KETONES (test code = Negative Negative 7847901489) PROTEIN (test code = Negative Negative 2887-8) UROBILIN (test code = Normal Normal 8952107778) BILIRUBIN (test code = Negative Negative 6757637505) NITRITE (test code = Negative Negative 7529897568) LEUK MURRAY (test code = Negative Negative 3345662113) RBC/HPF (test code = See_Comment [Autom ated message] 6323441394) The system [employer] generated this result transmitted ref erence range: 0 - 3 HP F. The reference range was not used to int erpret this result as normal/abnormal . WBC/HPF (test code = See_Comment [Autom ated message] 1191542395) The system [employer] generated this result transmitted ref erence range: 0 - 5 HP F. The reference range was not used to int erpret this result as normal/abnormal . BACTERIA (test code = Negative Negative 7044420529) MUCOUS (test code = Slight Negative LPF A 4892995289) SQ EPITH (test code = See_Comment [Auto mated message] 3621862274) The system [employer] generated this result transmitted ref erence range: <=2 HPF. The reference range was not used to int erpret this result as normal/abnormal . Lab Interpretation (test Abnormal code = 94975-6) [facility]ID TEST[facility])2020-07-14 09:45:51 Test Item Value Reference Range Interpretation Comments SARS-CoV-2 Rapid ID NOW Not Detected Not Detected (test code = 48718-0) ANTHONY (test code = ANTHONY) ID NOW COVID-19 Assay is an isothermal nucleic acid amplification test intended for the qualitative detection of nucleic acid from SARS-CoV-2 viral RNA in nasopharyngeal (HOT TOP LINER) specimens. It is used under Emergency Use [...] indicated. Lab Interpretation Normal (test code = 65591-1) [facility] with [id number] 02:07:47 Test Item Value Reference Range Interpretation Comments WBC (test code = See_Comment H [Automated 6690-2) message] The system which generated [...] RDW-SD (test code = 47.8 fL 39.0-49.9 66699-0) RDW-CV (test code = 13.6 % 12.0-15.5 788-0) PLT (test code = See_Comment H [Automated 777-3) message] The system which generated this result transmit karly reference range : 166 - 358 10*3/ ?L. The reference range was not u sed to interpret th is result as normal/abnormal . MPV (test code = 10.6 fL 9.5-12.9 78759-7) NRBC/100 WBC (test See_Comment [Automat ed code = 4198661043) message] The system which generated this result transmit karly reference range : 0.0 - 10.0 /100 WBCs. The reference range was not used to interpret this result as normal/abnormal . NRBC x10^3 (test code See_Comment [Auto mated = 4405932508) message] The system which generated this result transmit karly reference range : 10*3/?L. The reference range was not used to interpret this result as normal/abnormal . GRAN MAT (NEUT) % 70.5 % (test code = 770-8) IMM GRAN % (test code 1.60 % = 5581254956) LYMPH % (test code = 20.8 % 736-9) MONO % (test code = 6.8 % 5905-5) EOS % (test code = 0.1 % 713-8) BASO % (test code = 0.2 % 706-2) GRAN MAT x10^3(ANC) 12.19 10*3/uL 1.88-7.09 H (test code = 6525553789) IMM GRAN x10^3 (test 0.27 10*3/uL 0.00-0.06 H code = 8835943727) LYMPH x10^3 (test code 3.58 10*3/uL 1.32-3.29 H = 731-0) MONO x10^3 (test code 1.17 10*3/uL 0.33-0.92 H = 742-7) EOS x10^3 (test code = <0.03 0.03-0.39 L 711-2) BASO x10^3 (test code 0.03 10*3/uL 0.01-0.07 = 704-7) Lab Interpretation Abnormal (test code = 71831-4) [facility]SED[facility]ATION [id number] 02:02:09 Test Item Value Reference Range Interpretation Comments ESR (test code = See_Comment H [Automated message] 9426062036) The system [employer] generated this result transmitted ref erence range: 0 - 20 m m/HR. The reference r miky was not used to interpret this result as normal/abnor mal. Lab Interpretation (test Abnormal code = 37490-6) [facility] WITH [id number] 03:30:13 Test Item Value Reference Range Interpretation Comments WBC (test code = See_Comment [Automated 8190-2) message] The sy stem which generated this [...] RDW-SD (test code = 48.1 fL 39.0-49.9 63392-3) RDW-CV (test code = 13.3 % 12.0-15.5 788-0) PLT (test code = See_Comment [Automated 777-3) message] The sy stem which generated this result transmitted reference range : 166 - 358 10*3/ ?L. The reference r miky was not used to interpret this result as normal/abnormal . MPV (test code = 10.4 fL 9.5-12.9 23246-4) NRBC/100 WBC (test See_Comment [Automat ed code = 1586193868) message] The system which generated this result transmitted reference range : 0.0 - 10.0 /100 WBCs. The refer ence range was not u sed to interpret th is result as normal/abnormal . NRBC x10^3 (test code <0.01 See_Comment [Auto mated = 0828937654) message] The s ystem which generated this result transmitted reference range : 10*3/?L. The reference range was not used to interpret this result as normal/abnormal . GRAN MAT (NEUT) % 44.6 % (test code = 770-8) IMM GRAN % (test code 0.80 % = 0444932995) LYMPH % (test code = 43.3 % 736-9) MONO % (test code = 10.0 % 5905-5) EOS % (test code = 0.9 % 713-8) BASO % (test code = 0.4 % 706-2) GRAN MAT x10^3(ANC) 3.52 10*3/uL 1.88-7.09 (test code = 7629871084) IMM GRAN x10^3 (test 0.06 10*3/uL 0.00-0.06 code = 3490639372) LYMPH x10^3 (test code 3.42 10*3/uL 1.32-3.29 H = 731-0) MONO x10^3 (test code 0.79 10*3/uL 0.33-0.92 = 742-7) EOS x10^3 (test code = 0.07 10*3/uL 0.03-0.39 711-2) BASO x10^3 (test code 0.03 10*3/uL 0.01-0.07 = 704-7) Lab Interpretation Abnormal (test code = 92682-6) [facility]IPASE[facility]21[facility] 19:38:39 Test Item Value Reference Range Interpretation Comments LIPASE (test code = 8994156860) 39 U/L 0-220 Lab Interpretation (test code = Normal 40725-0) [facility] CenterCOMP[facility] METABOLIC PANEL (71620)2020-07-04 19:20:59 Test Item Value Reference Range Interpretation Comments NA (test code = 138 mmol/L 135-145 6217098115) K (test code = 3.9 mmol/L 3.5-5.0 8540480108) CL (test code = 101 mmol/L 98-108 8274037809) CO2 TOTAL (test code = 27 mmol/L 23-31 1713224812) AGAP (test code = 2-16 9228720193) BUN (test code = 20 mg/dL 7-23 2274509903) GLUCOSE (test code = 105 mg/dL 70-110 0333778888) CREATININE (test code = 0.78 mg/dL 0.50-1.04 0975167158) TOTAL BILI (test code = 0.4 mg/dL 0.1-1.2 8181740713) CALCIUM (test code = 9.8 mg/dL 8.6-10.6 3099959417) T PROTEIN (test code = 9.1 g/dL 6.3-8.2 H 7660881708) ALBUMIN (test code = 4.9 g/dL 3.5-5.0 3397096797) ALK PHOS (test code = 171 U/L 34-122 H 8088185816) ALTv (test code = 136 U/L 5-35 H 2-6) AST(SGOT) (test code = 82 U/L 13-40 H 5161947268) eGFR (test code = mL/min/1.73m2 8305713225) ANTHONY (test code = ANTHONY) Association of [...] tests). Lab Interpretation Abnormal (test code = 10319-8) [facility] PtozrrGfbdmtrsfz7553-76-27 19:14:12 Test Item Value Reference Range Interpretation Comments APPEARANCE (test code = Clear Clear 9552685187) COLOR (test code = Yellow Yellow 7860248289) PH (test code = 4.8-8.0 2542155682) SP GRAVITY (test code = 1.003-1.030 7882113684) GLU U QUAL (test code = Normal Normal 8277715767) BLOOD (test code = Negative Negative 8651151177) KETONES (test code = Negative Negative 3366641875) PROTEIN (test code = Negative Negative 2887-8) UROBILIN (test code = Normal Normal 7426199687) BILIRUBIN (test code = Negative Negative 4161033175) NITRITE (test code = Negative Negative 6262449299) LEUK MURRAY (test code = 75/uL Negative A 6671036573) RBC/HPF (test code = See_Comment [Autom ated message] 5861649670) The system [employer] generated this result transmitted ref erence range: 0 - 3 HP F. The reference range was not used to int erpret this result as normal/abnormal . WBC/HPF (test code = See_Comment H [Autom ated message] 3327057991) The system [employer] generated this result transmitted ref erence range: 0 - 5 HP F. The reference range was not used to int erpret this result as normal/abnormal . BACTERIA (test code = Negative Negative 4502373077) MUCOUS (test code = Slight Negative LPF A 9950699554) SQ EPITH (test code = HPF 3617961426) Lab Interpretation (test Abnormal code = 94313-4) [facility] WITH [id number] 19:10:40 Test Item Value Reference Range Interpretation Comments WBC (test code = See_Comment [Automated 6690-2) message] The sy stem which generated this result transmitted reference range : 4.30 - 11.10 10*3/?L. The reference range was not used to interpret this result as normal/abnormal . RBC (test code = See_Comment L [Automated 739-8) message] The sy stem which generated this [...] RDW-SD (test code = 47.2 fL 39.0-49.9 14383-9) RDW-CV (test code = 13.2 % 12.0-15.5 788-0) PLT (test code = See_Comment [Automated 777-3) message] The sy stem which generated this result transmitted reference range : 166 - 358 10*3/ ?L. The reference r miky was not used to interpret this result as normal/abnormal . MPV (test code = 10.5 fL 9.5-12.9 01672-5) NRBC/100 WBC (test See_Comment [Automat ed code = 9096463973) message] The system which generated this result transmitted reference range : 0.0 - 10.0 /100 WBCs. The refer ence range was not u sed to interpret th is result as normal/abnormal . NRBC x10^3 (test code <0.01 See_Comment [Auto mated = 9712738309) message] The s ystem which generated this result transmitted reference range : 10*3/?L. The reference range was not used to interpret this result as normal/abnormal . GRAN MAT (NEUT) % 54.8 % (test code = 770-8) IMM GRAN % (test code 0.80 % = 9127956057) LYMPH % (test code = 32.1 % 736-9) MONO % (test code = 10.3 % 5905-5) EOS % (test code = 1.7 % 713-8) BASO % (test code = 0.3 % 706-2) GRAN MAT x10^3(ANC) 3.46 10*3/uL 1.88-7.09 (test code = 9039372581) IMM GRAN x10^3 (test 0.05 10*3/uL 0.00-0.06 code = 4554388219) LYMPH x10^3 (test code 2.03 10*3/uL 1.32-3.29 = 731-0) MONO x10^3 (test code 0.65 10*3/uL 0.33-0.92 = 742-7) EOS x10^3 (test code = 0.11 10*3/uL 0.03-0.39 711-2) BASO x10^3 (test code <0.03 0.01-0.07 = 704-7) Lab Interpretation Abnormal (test code = 10659-7) [facility] CenterTRALKAN [id number] 17:09:15 Test Item Value Reference Range Interpretation Comments TROPONIN I (test 0.000 ng/mL See_Comment [Automated code = 5803037793) message] The system which generated this result [...] ? Lab Interpretation Normal (test code = 81668-8) [facility] CenterMR BRAIN WO [id number] 15:28:24 Within the limitation of motion degrading [...] reviewed this study and agree with theabove report.[facility] CenterCT ANGIOGRAM [id number] 01:50:14 No large vessel occlusion or flow-limiting [...] suspected TECHNIQUE: Axial CT imaging of the [place] and from the skull baseto the superior mediastinum was obtained during arterial phase after theintravenous administration of IV contrast. Coronal, sagittal, and MIPS wereconstructed. COMPARISON: [place] CT head FINDINGS: CTA HEAD: The PICA origin is visualized bilaterally. The basilar artery is normal incaliber. Common origin of the left superior cerebellar and CHARGE NURSE is noted.The superior cerebellararteries are patent. The posterior cerebralarteries are patent. A right CHARGE NURSE is identified. A sm all leftposterior communicating [...] suspected TECHNIQUE: Axial CT imaging of the [place] and from the skull baseto the superior mediastinum was obtained during arterial phase after theintravenous administration of IV contrast. Coronal, sagittal, and MIPS wereconstructed.COMPARISON: Same day CT headFINDINGS:CTA HEAD:The PICA origin is visualized bilaterally. The basilar artery is normal incaliber. Common origin of the left superior cerebellar and CHARGE NURSE is noted.The superior cerebellar arteries are patent. The posterior cerebralarteries are patent. A right CHARGE NURSE is identified. A small leftposterior communicating artery [...] reviewed this study and agree with theabove report.[facility] CenterCT ANGIOGRAM [id number] 01:50:14 No large vessel occlusion or flow-limiting stenosis is identified in thehead and neck arteries. Follow-up with dedicated thyroid ultrasound on a non-emergent, outpatientbasis is recommended for further characterization. Preliminary Report Dictated by Resident: Aury Hallman MD., have reviewed this study and agree with theabove report.EXAM: CT ANGIOGRAM HEAD, CT ANGIOGRAM NECK HISTORY: ?Headache, intracranial hemorrhage suspected TECHNIQUE: Axial CT imaging of the [place] and from the skull baseto the superior mediastinum was obtained during arterial phase after theintravenous administration of IV contrast. Coronal, sagittal, and MIPS wereconstructed. COMPARISON: [place] CT head FINDINGS: CTA HEAD: The PICA origin is visualized bilaterally. The basilar artery is normal incaliber. Common origin of the left superior cerebellar and CHARGE NURSE is noted.The superior cerebellararteries are patent. The posterior cerebralarteries are patent. A right CHARGE NURSE is identified. A sm all leftposterior communicating [...] suspected TECHNIQUE: Axial CT imaging of the [place] and from the skull baseto the superior mediastinum was obtained during arterial phase after theintravenous administration of IV contrast. Coronal, sagittal, and MIPS wereconstructed.COMPARISON: Same day CT headFINDINGS:CTA HEAD:The PICA origin is visualized bilaterally. The basilar artery is normal incaliber. Common origin of the left superior cerebellar and CHARGE NURSE is noted.The superior cerebellar arteries are patent. The posterior cerebralarteries are patent. A right CHARGE NURSE is identified. A small leftposterior communicating artery [...] reviewed this study and agree with theabove report.[facility] CenterSEDIMENTATION [id number] 01:00:08 Test Item Value Reference Range Interpretation Comments ESR (test code = See_Comment H [Automated message] 7896299616) The system [employer] generated this result transmitted ref erence range: 0 - 20 m m/HR. The reference r miky was not used to interpret this result as normal/abnor mal. Lab Interpretation (test Abnormal code = 40848-2) [facility] CenterCT HEAD WO [id number] 00:39:04 No acute intracranial hemorrhage or mass [...] reviewed this study and agree with theabove report.[facility] CenterCOVID[facility] (ID NOW RAPID TESTING)2020-06-26 22:58:15 Test Item Value Reference Range Interpretation Comments SARS-CoV-2 Rapid ID NOW Not Detected Not Detected (test code = 14059-1) ANTHONY (test code = ANTHONY) ID NOW COVID-19 Assay is an isothermal nucleic acid amplification test intended for the qualitative detection of nucleic acid from SARS-CoV-2 viral RNA in nasopharyngeal (HOT TOP LINER) specimens. It is used under Emergency Use [...] indicated. Lab Interpretation Normal (test code = 50109-7) [facility] CenterChes 1 [id number] 22:12:42 No acute cardiopulmonary abnormality. Preliminary Report Dictated by Resident: Rex Christopher MD., have reviewed this study and agree with the abovereport.EXAM: XR CHEST 1 VW CLINICAL INDICATION: CP COMPARISON: 12/08/2019 FINDINGS: The lungs are well-expanded and clear without focal consolidation, pleuraleffusion, or pneumothorax. The cardiac silhouette is normal in size. No acute osseous abnormality. Nmmb, Radiant Results Inft User - 06/26/2020 5:13 PM CDTEXAM: XR CHEST 1 VWCLINICALINDICATION: CP COMPARISON: 12/08/2019FINDINGS:The lungs are well-expanded and clear without focal consolidation, pleuraleffusion, or pneumothorax. The cardiac silhouette is normal in size. No acute osseous abnormality. IMPRESSIONNo acute cardiopulmonary abnormality. Preliminary Report Dictated by Resident: Rex Villanueva MD., have reviewed this study and agree with the abovereport.[facility] CenterUrinalysis 2020-06-26 21:49:50 Test Item Value Reference Range Interpretation Comments APPEARANCE (test code = Clear Clear 0332946401) COLOR (test code = Yellow Yellow 0391028424) PH (test code = 4.8-8.0 0775863036) SP GRAVITY (test code = 1.003-1.030 8120631728) GLU U QUAL (test code = Normal Normal 3497195144) BLOOD (test code = Negative Negative 4351392125) KETONES (test code = Negative Negative 0665536555) PROTEIN (test code = Negative Negative 2887-8) UROBILIN (test code = Normal Normal 4764708588) BILIRUBIN (test code = Negative Negative 3939470207) NITRITE (test code = Negative Negative 9733079676) LEUK MURRAY (test code = Negative Negative 1710630262) RBC/HPF (test code = See_Comment [Autom ated message] 5311370309) The system [employer] generated this result transmitted ref erence range: 0 - 3 HP F. The reference range was not used to int erpret this result as normal/abnormal . WBC/HPF (test code = See_Comment [Autom ated message] 4284900126) The system [employer] generated this result transmitted ref erence range: 0 - 5 HP F. The reference range was not used to int erpret this result as normal/abnormal . BACTERIA (test code = Negative Negative 4362449567) MUCOUS (test code = Slight Negative LPF A 9260535020) SQ EPITH (test code = HPF 2202741063) Lab Interpretation (test Abnormal code = 82704-5) [facility] CenterTroponin [id number] 21:18:44 Test Item Value Reference Range Interpretation Comments TROPONIN I (test <0.012 See_Comment [Automated code = 9329151365) message] The system which generated this result [...] ? Lab Interpretation Normal (test code = 16200-0) [facility] (NA, K, CL, CO2, GLUCOSE, BUN, CREATININE, CA)2020-06-26 21:07:49 Test Item Value Reference Range Interpretation Comments NA (test code = 141 mmol/L 135-145 5450636312) K (test code = 4.1 mmol/L 3.5-5.0 6403266545) CL (test code = 109 mmol/L 98-108 H 3723521934) CO2 TOTAL (test code = 23 mmol/L 23-31 0652475063) AGAP (test code = 2-16 8234601876) BUN (test code = 19 mg/dL 7-23 9208765370) GLUCOSE (test code = 112 mg/dL 70-110 H 7082576459) CREATININE (test code = 0.87 mg/dL 0.50-1.04 6050883275) CALCIUM (test code = 9.6 mg/dL 8.6-10.6 5692200174) eGFR (test code = mL/min/1.73m2 0962632986) ANTHONY (test code = ANTHONY) Association of [...] tests). Lab Interpretation Abnormal (test code = 70279-2) [facility] CenterHepatic Function Panel (ALB, T.PRO, BILI T, BU/BC, ALT, AST, ALK PHOS)2020-06-26 21:07:28 Test Item Value Reference Range Interpretation Comments TOTAL BILI (test code = 0742016631) 0.3 mg/dL 0.1-1.1 BILI UNCON (test code = 8822999525) 0.1 mg/dL 0.1-1.1 BILI CONJ (test code = 6390793466) 0.0 mg/dL 0.0-0.3 T PROTEIN (test code = 5529730045) 7.4 g/dL 6.3-8.2 ALBUMIN (test code = 3685207956) 4.4 g/dL 3.5-5.0 ALK PHOS (test code = 8786940501) 138 U/L 34-122 H ALTv (test code = 1742-6) 32 U/L 5-35 AST(SGOT) (test code = 1638994711) 40 U/L 13-40 Lab Interpretation (test code = Abnormal 43434-9) [facility] with [id number] 20:55:04 Test Item Value Reference Range Interpretation [...] RDW-SD (test code = 49.3 fL 39.0-49.9 40086-5) RDW-CV (test code = 13.7 % 12.0-15.5 788-0) PLT (test code = See_Comment [Automated 777-3) message] The sy stem which generated this result transmitted reference range : 166 - 358 10*3/ ?L. The reference r miky was not used to interpret this result as normal/abnormal . MPV (test code = 10.7 fL 9.5-12.9 00055-7) NRBC/100 WBC (test See_Comment [Automat ed code = 0102883119) message] The system which generated this result transmitted reference range : 0.0 - 10.0 /100 WBCs. The refer ence range was not u sed to interpret th is result as normal/abnormal . NRBC x10^3 (test code <0.01 See_Comment [Auto mated = 3469965456) message] The s ystem which generated this result transmitted reference range : 10*3/?L. The reference range was not used to interpret this result as normal/abnormal . GRAN MAT (NEUT) % 57.2 % (test code = 770-8) IMM GRAN % (test code 0.20 % = 3921028044) LYMPH % (test code = 31.8 % 736-9) MONO % (test code = 9.9 % 5905-5) EOS % (test code = 0.6 % 713-8) BASO % (test code = 0.3 % 706-2) GRAN MAT x10^3(ANC) 3.80 10*3/uL 1.88-7.09 (test code = 6010487092) IMM GRAN x10^3 (test <0.03 0.00-0.06 code = 4149260152) LYMPH x10^3 (test code 2.11 10*3/uL 1.32-3.29 = 731-0) MONO x10^3 (test code 0.66 10*3/uL 0.33-0.92 = 742-7) EOS x10^3 (test code = 0.04 10*3/uL 0.03-0.39 711-2) BASO x10^3 (test code <0.03 0.01-0.07 = 704-7) Lab Interpretation Abnormal (test code = 02907-6) [facility] CenterCOMP. METABOLIC PANEL (06764)2020-06-01 11:34:39 Test Item Value Reference Range Interpretation Comments NA (test code = 137 mmol/L 135-145 8245537849) K (test code = 4.3 mmol/L 3.5-5.0 1773355288) CL (test code = 106 mmol/L 98-108 3805508006) CO2 TOTAL (test code = 26 mmol/L 23-31 1185577719) AGAP (test code = 2-16 8957123186) BUN (test code = 13 mg/dL 7-23 5146464772) GLUCOSE (test code = 81 mg/dL 70-110 0458999738) CREATININE (test code = 0.76 mg/dL 0.50-1.04 3275254459) TOTAL BILI (test code = 0.4 mg/dL 0.1-1.2 9120555461) CALCIUM (test code = 8.5 mg/dL 8.6-10.6 L 2500544357) T PROTEIN (test code = 6.0 g/dL 6.3-8.2 L 0842887382) ALBUMIN (test code = 3.5 g/dL 3.5-5.0 1578128733) ALK PHOS (test code = 128 U/L 34-122 H 3322949730) ALTv (test code = 54 U/L 5-35 H 1742-6) AST(SGOT) (test code = 51 U/L 13-40 H 9496250221) eGFR (test code = mL/min/1.73m2 9094823269) ANTHONY (test code = ANTHONY) Association of [...] tests). Lab Interpretation Abnormal (test code = 69531-9) [facility] CenterLAB ONLY COVID [id number] 02:48:13COVID DMT InterpretationInterpretation/Recommendations: Molecular NAAT Tests for [...] COVID-19 testing the patient has had at [facility], including molecular NAAT testing (more commonly known as PCR testing and Rapid ID Now testing) and antibody testing. It does not take into account any testing that a patient has had outside of the [facility] medical record. [facility] LABORATORY SERVICESCOVID ResultsSA RS-CoV-2 Rapid ID NOW (no units) ? ? Date ? Value ? 05/30/2020 ? Not Detected ? [facility] LABORATORY SERVICES [facility] METABOLIC PANEL (NA, K, CL, CO2, GLUCOSE, BUN, CREATININE, CA)2020-05-31 15:23:27 Test Item Value Reference Range Interpretation Comments NA (test code = 137 mmol/L 135-145 1171762698) K (test code = 4.0 mmol/L 3.5-5.0 5568612949) CL (test code = 105 mmol/L 98-108 5569319321) CO2 TOTAL (test code 27 mmol/L 23-31 = 7930457834) AGAP (test code = 2-16 2480730106) BUN (test code = 14 mg/dL 7-23 4743969664) GLUCOSE (test code = 92 mg/dL 70-110 2593190075) CREATININE (test code 0.72 mg/dL 0.50-1.04 = 7653678260) CALCIUM (test code = 8.8 mg/dL 8.6-10.6 3078214038) eGFR (test code = mL/min/1.73m2 8392200971) ANTHONY (test code = ANTHONY) Association of [...] or urine or abnormalities in imaging tests). [facility] with Gklqrwogomue3651-17-61 12:40:08 Test Item Value Reference Range Interpretation Comments WBC (test code = See_Comment [Automated 6290-2) message] The sy stem which generated this result transmitted reference range : 4.30 - 11.10 10*3/?L. The reference range was not used to interpret this result as normal/abnormal . RBC (test code = See_Comment L [Automated 569-8) message] The sy stem which generated this [...] (test code = 51.6 fL 39.0-49.9 H 43697-4) RDW-CV (test code = 14.3 % 12.0-15.5 788-0) PLT (test code = See_Comment [Automated 777-3) message] The sy stem which generated this result transmitted reference range : 166 - 358 10*3/ ?L. The reference r miky was not used to interpret this result as normal/abnormal . MPV (test code = 10.0 fL 9.5-12.9 97816-8) NRBC/100 WBC (test See_Comment [Automat ed code = 0057846421) message] The system which generated this result transmitted reference range : 0.0 - 10.0 /100 WBCs. The refer ence range was not u sed to interpret th is result as normal/abnormal . NRBC x10^3 (test code <0.01 See_Comment [Auto mated = 8385929141) message] The s ystem which generated this result transmitted reference range : 10*3/?L. The reference range was not used to interpret this result as normal/abnormal . GRAN MAT (NEUT) % 40.2 % (test code = 770-8) IMM GRAN % (test code 0.40 % = 7464388352) LYMPH % (test code = 47.8 % 736-9) MONO % (test code = 10.5 % 5905-5) EOS % (test code = 0.9 % 713-8) BASO % (test code = 0.2 % 706-2) GRAN MAT x10^3(ANC) 2.15 10*3/uL 1.88-7.09 (test code = 1396359735) IMM GRAN x10^3 (test <0.03 0.00-0.06 code = 1106036513) LYMPH x10^3 (test code 2.55 10*3/uL 1.32-3.29 = 731-0) MONO x10^3 (test code 0.56 10*3/uL 0.33-0.92 = 742-7) EOS x10^3 (test code = 0.05 10*3/uL 0.03-0.39 711-2) BASO x10^3 (test code <0.03 0.01-0.07 = 704-7) Lab Interpretation Abnormal (test code = 72576-6) [facility] CenterCT [facility] W WO [id number] 21:54:53 1. ?Nonobstructive left nephrolithiasis. No striated [...] eviewed this study and agree with theabove report.[facility] CenterCOVID-19 (ID NOW RAPID TESTING)2020-05-30 20:50:01 Test Item Value Reference Range Interpretation Comments SARS-CoV-2 Rapid ID NOW Not Detected Not Detected (test code = 62309-7) ANTHONY (test code = ANTHONY) ID NOW COVID-19 Assay is an isothermal nucleic acid amplification test intended for the qualitative detection of nucleic acid from SARS-CoV-2 viral RNA in nasopharyngeal (HOT TOP LINER) specimens. It is used under Emergency Use [...] indicated. Lab Interpretation Normal (test code = 26841-9) [facility] Metabolic Panel (NA, K, CL, CO2, GLUCOSE, BUN, CREATININE, CA)2020-05-30 20:40:22 Test Item Value Reference Range Interpretation Comments NA (test code = 139 mmol/L 135-145 3048527925) K (test code = 4.0 mmol/L 3.5-5.0 9931483313) CL (test code = 105 mmol/L 98-108 7190584686) CO2 TOTAL (test code 25 mmol/L 23-31 = 4154892084) AGAP (test code = 2-16 0645531176) BUN (test code = 18 mg/dL 7-23 4902002552) GLUCOSE (test code = 100 mg/dL 70-110 0723567560) CREATININE (test code 0.66 mg/dL 0.50-1.04 = 6358547009) CALCIUM (test code = 9.2 mg/dL 8.6-10.6 9104285361) eGFR (test code = mL/min/1.73m2 4737429605) ANTHONY (test code = ANTHONY) Association of [...] or urine or abnormalities in imaging tests). [facility] (ALB, T.PRO, BILI T, BU/BC, ALT, AST, ALK PHOS)2020-05-30 20:40:22 Test Item Value Reference Range Interpretation Comments TOTAL BILI (test code = 8439323430) 0.4 mg/dL 0.1-1.1 BILI UNCON (test code = 3870063690) 0.2 mg/dL 0.1-1.1 BILI CONJ (test code = 2815682411) 0.0 mg/dL 0.0-0.3 T PROTEIN (test code = 8189838247) 7.7 g/dL 6.3-8.2 ALBUMIN (test code = 6637221171) 4.6 g/dL 3.5-5.0 ALK PHOS (test code = 9259822128) 158 U/L 34-122 H ALTv (test code = 1742-6) 70 U/L 5-35 H AST(SGOT) (test code = 8737834639) 46 U/L 13-40 H Lab Interpretation (test code = Abnormal 50670-9) [facility] 20:37:21 Test Item Value Reference Range Interpretation Comments APTT Patient (test See_Comment [Automat ed code = 3173-2) message] The system which generated this result transmitted reference range : 23 - 38 Seconds . The reference range was not used to interpr et this result as normal/abnormal . ANTHONY (test code = ANTHONY) The [facility] patient population mean normal value for aPTT is 30 seconds. Lab Interpretation Normal (test code = 29561-4) [facility] CenterProthrombin Time (PT) / [id number] 20:35:00 Test Item Value Reference Range Interpretation Comments PROTIME PATIENT (test See_Comment [Auto mated message] code = 5964-2) The system [employer] generated this result transmitted ref erence range: 12.0 - 1 4.7 Seconds. The re ference range was not u sed to interpret this result as normal/abnor mal. INR (test code = 6301-6) Nor mal INR <1.1; Warfarin Therap eutic range 2.0 to 3. 0 or 2.5 to 3.5, dep ending upon the indica tions. Lab Interpretation (test Normal code = 52245-0) [facility] CenterUrinalysis2021-[facility] 20:34:10 Test Item Value Reference Range Interpretation Comments APPEARANCE (test code = Clear Clear 9312983745) COLOR (test code = Yellow Yellow 1489570960) PH (test code = 4.8-8.0 3469334170) SP GRAVITY (test code = 1.003-1.030 1505027153) GLU U QUAL (test code = Normal Normal 7391366856) BLOOD (test code = Negative Negative 2624705612) KETONES (test code = Negative Negative 0377283696) PROTEIN (test code = Negative Negative 2887-8) UROBILIN (test code = Normal Normal 3847225901) BILIRUBIN (test code = Negative Negative 1898953268) NITRITE (test code = Negative Negative 4308988755) LEUK MURRAY (test code = 25/uL Negative A 3822122846) RBC/HPF (test code = See_Comment [Autom ated message] 0850269529) The system [employer] generated this result transmitted ref erence range: 0 - 3 HP F. The reference range was not used to int erpret this result as normal/abnormal . WBC/HPF (test code = See_Comment [Autom ated message] 3889200643) The system [employer] generated this result transmitted ref erence range: 0 - 5 HP F. The reference range was not used to int erpret this result as normal/abnormal . BACTERIA (test code = Few Negative A 5031936113) MUCOUS (test code = Slight Negative LPF A 0570858543) SQ EPITH (test code = HPF 9037419845) Lab Interpretation (test Abnormal code = 88769-3) [facility] with Ctjdccarpoxm8215-67-97 20:27:23 Test Item Value Reference Range Interpretation [...] RDW-SD (test code = 49.6 fL 39.0-49.9 00381-2) RDW-CV (test code = 14.1 % 12.0-15.5 788-0) PLT (test code = See_Comment [Automated 777-3) message] The sy stem which generated this result transmitted reference range : 166 - 358 10*3/ ?L. The reference r miky was not used to interpret this result as normal/abnormal . MPV (test code = 9.7 fL 9.5-12.9 37864-6) NRBC/100 WBC (test See_Comment [Automat ed code = 5765069531) message] The system which generated this result transmitted reference range : 0.0 - 10.0 /100 WBCs. The refer ence range was not u sed to interpret th is result as normal/abnormal . NRBC x10^3 (test code <0.01 See_Comment [Auto mated = 9313354234) message] The s ystem which generated this result transmitted reference range : 10*3/?L. The reference range was not used to interpret this result as normal/abnormal . GRAN MAT (NEUT) % 49.6 % (test code = 770-8) IMM GRAN % (test code 0.30 % = 1433156862) LYMPH % (test code = 38.7 % 736-9) MONO % (test code = 10.4 % 5905-5) EOS % (test code = 0.8 % 713-8) BASO % (test code = 0.2 % 706-2) GRAN MAT x10^3(ANC) 3.26 10*3/uL 1.88-7.09 (test code = 7273506866) IMM GRAN x10^3 (test <0.03 0.00-0.06 code = 5146522295) LYMPH x10^3 (test code 2.54 10*3/uL 1.32-3.29 = 731-0) MONO x10^3 (test code 0.68 10*3/uL 0.33-0.92 = 742-7) EOS x10^3 (test code = 0.05 10*3/uL 0.03-0.39 711-2) BASO x10^3 (test code <0.03 0.01-0.07 = 704-7) Lab Interpretation Abnormal (test code = 91857-4) [facility] CenterLactic Acid Whole [id number] 20:24:41 Test Item Value Reference Range Interpretation Comments LACTIC ACID (test code = 1.17 mmol/L 0.50-2.20 6999876564) Lab Interpretation (test code = Normal 57032-0) [facility] CenterUrinalysis2021-[facility] 00:29:10 Test Item Value Reference Range Interpretation Comments APPEARANCE (test code = Clear Clear 7115995382) COLOR (test code = Yellow Yellow 2976796129) PH (test code = 4.8-8.0 7137823158) SP GRAVITY (test code = 1.003-1.030 7165378379) GLU U QUAL (test code = Normal Normal 9025983806) BLOOD (test code = Negative Negative 1745498545) KETONES (test code = Negative Negative 5222904771) PROTEIN (test code = Negative Negative 2887-8) UROBILIN (test code = Normal Normal 7687545844) BILIRUBIN (test code = Negative Negative 8949773690) NITRITE (test code = Negative Negative 3320342658) LEUK MURRAY (test code = 25/uL Negative A 6758154884) RBC/HPF (test code = See_Comment [Autom ated message] 0689173373) The system [employer] generated this result transmitted ref erence range: 0 - 3 HP F. The reference range was not used to int erpret this result as normal/abnormal . WBC/HPF (test code = See_Comment H [Autom ated message] 4966327917) The system [employer] generated this result transmitted ref erence range: 0 - 5 HP F. The reference range was not used to int erpret this result as normal/abnormal . BACTERIA (test code = Few Negative A 5263721056) MUCOUS (test code = Slight Negative LPF A 1110927169) SQ EPITH (test code = HPF 8754637349) Lab Interpretation (test Abnormal code = 31339-6) [facility] Metabolic Panel (NA, K, CL, CO2, GLUCOSE, BUN, CREATININE, CA)2020-05-26 23:56:22 Test Item Value Reference Range Interpretation Comments NA (test code = 140 mmol/L 135-145 6010559162) K (test code = 3.8 mmol/L 3.5-5.0 5144277932) CL (test code = 104 mmol/L 98-108 5085031387) CO2 TOTAL (test code 27 mmol/L 23-31 = 2981291423) AGAP (test code = 2-16 3360302748) BUN (test code = 15 mg/dL 7-23 5500104056) GLUCOSE (test code = 95 mg/dL 70-110 6368300318) CREATININE (test code 0.60 mg/dL 0.50-1.04 = 7274312810) CALCIUM (test code = 9.0 mg/dL 8.6-10.6 5841007971) eGFR (test code = mL/min/1.73m2 3435361933) ANTHONY (test code = ANTHONY) Association of [...] or urine or abnormalities in imaging tests). [facility] (ALB, T.PRO, BILI T, BU/BC, ALT, AST, ALK PHOS)2020-05-26 23:55:42 Test Item Value Reference Range Interpretation Comments TOTAL BILI (test code = 2077896890) 0.3 mg/dL 0.1-1.1 BILI UNCON (test code = 1651521016) 0.2 mg/dL 0.1-1.1 BILI CONJ (test code = 8098834835) 0.0 mg/dL 0.0-0.3 T PROTEIN (test code = 3493526643) 7.5 g/dL 6.3-8.2 ALBUMIN (test code = 9763493260) 4.5 g/dL 3.5-5.0 ALK PHOS (test code = 0557367477) 165 U/L 34-122 H ALTv (test code = 1742-6) 110 U/L 5-35 H AST(SGOT) (test code = 8716624828) 66 U/L 13-40 H Lab Interpretation (test code = Abnormal 84897-3) [facility] with Sqziqwljoane0968-91-62 23:42:55 Test Item Value Reference Range Interpretation [...] RDW-SD (test code = 48.4 fL 39.0-49.9 15025-7) RDW-CV (test code = 13.6 % 12.0-15.5 788-0) PLT (test code = See_Comment [Automated 777-3) message] The sy stem which generated this result transmitted reference range : 166 - 358 10*3/ ?L. The reference r miky was not used to interpret this result as normal/abnormal . MPV (test code = 9.8 fL 9.5-12.9 36222-3) NRBC/100 WBC (test See_Comment [Automat ed code = 7254287201) message] The system which generated this result transmitted reference range : 0.0 - 10.0 /100 WBCs. The refer ence range was not u sed to interpret th is result as normal/abnormal . NRBC x10^3 (test code <0.01 See_Comment [Auto mated = 3258324660) message] The s ystem which generated this result transmitted reference range : 10*3/?L. The reference range was not used to interpret this result as normal/abnormal . GRAN MAT (NEUT) % 61.8 % (test code = 770-8) IMM GRAN % (test code 0.70 % = 7839890378) LYMPH % (test code = 27.3 % 736-9) MONO % (test code = 9.0 % 5905-5) EOS % (test code = 1.0 % 713-8) BASO % (test code = 0.2 % 706-2) GRAN MAT x10^3(ANC) 5.01 10*3/uL 1.88-7.09 (test code = 6654743492) IMM GRAN x10^3 (test 0.06 10*3/uL 0.00-0.06 code = 3559113900) LYMPH x10^3 (test code 2.22 10*3/uL 1.32-3.29 = 731-0) MONO x10^3 (test code 0.73 10*3/uL 0.33-0.92 = 742-7) EOS x10^3 (test code = 0.08 10*3/uL 0.03-0.39 711-2) BASO x10^3 (test code <0.03 0.01-0.07 = 704-7) Lab Interpretation Abnormal (test code = 09760-0) [facility] CenterUrinalysis2021-[facility] 19:25:57 Test Item Value Reference Range Interpretation Comments APPEARANCE (test code = Clear Clear 0841987698) COLOR (test code = Yellow Yellow 1717709913) PH (test code = 4.8-8.0 1294882437) SP GRAVITY (test code = >1.060 1.003-1.030 H 7830120447) GLU U QUAL (test code = Normal Normal 4615407366) BLOOD (test code = Negative Negative 0132422994) KETONES (test code = Negative Negative 9608208073) PROTEIN (test code = Negative Negative 2887-8) UROBILIN (test code = Normal Normal 9653379494) BILIRUBIN (test code = Negative Negative 5313641444) NITRITE (test code = Negative Negative 6108161136) LEUK MURRAY (test code = 25/uL Negative A 0894702725) RBC/HPF (test code = See_Comment [Autom ated message] 0281179471) The system [employer] generated this result transmitted ref erence range: 0 - 3 HP F. The reference range was not used to int erpret this result as normal/abnormal . WBC/HPF (test code = See_Comment [Autom ated message] 0395675651) The system [employer] generated this result transmitted ref erence range: 0 - 5 HP F. The reference range was not used to int erpret this result as normal/abnormal . BACTERIA (test code = Few Negative A 5313038853) MUCOUS (test code = Slight Negative LPF A 6290862733) SQ EPITH (test code = HPF 5448257803) Lab Interpretation (test Abnormal code = 40810-5) [facility]CT [facility] W [id number] 17:38:50CT Abdomen and Pelvis with intravenous contrast. [...] eachmeasuring 2 to 3 mm in size. [facility], Radiant Results Inft User - 05/13/2020 12:39 [...] eachmeasuring 2 to 3 mm in size. [facility]Hep[facility] (ALB, T.PRO, BILI T, BU/BC, ALT, AST, ALK PHOS)2020-05-13 17:24:50 Test Item Value Reference Range Interpretation Comments TOTAL BILI (test code = 0110266284) 0.5 mg/dL 0.1-1.1 BILI UNCON (test code = 8114778237) 0.2 mg/dL 0.1-1.1 BILI CONJ (test code = 6179421530) 0.0 mg/dL 0.0-0.3 T PROTEIN (test code = 2973621393) 8.0 g/dL 6.3-8.2 ALBUMIN (test code = 6888798493) 4.7 g/dL 3.5-5.0 ALK PHOS (test code = 2307349609) 142 U/L 34-122 H ALTv (test code = 1742-6) 29 U/L 5-35 AST(SGOT) (test code = 4195908753) 41 U/L 13-40 H Lab Interpretation (test code = Abnormal 40734-1) [facility] Metabolic Panel (NA, K, CL, CO2, GLUCOSE, BUN, CREATININE, CA)2020-05-13 17:24:49 Test Item Value Reference Range Interpretation Comments NA (test code = 139 mmol/L 135-145 5657468198) K (test code = 3.9 mmol/L 3.5-5.0 4480446291) CL (test code = 111 mmol/L 98-108 H 8946559010) CO2 TOTAL (test code = 19 mmol/L 23-31 L 8949567518) AGAP (test code = 2-16 7217041686) BUN (test code = 15 mg/dL 7-23 6731835529) GLUCOSE (test code = 123 mg/dL 70-110 H 2091460305) CREATININE (test code = 0.83 mg/dL 0.50-1.04 1587872388) CALCIUM (test code = 9.5 mg/dL 8.6-10.6 8391011553) eGFR (test code = mL/min/1.73m2 8254363251) ANTHONY (test code = ANTHONY) Association of [...] tests). Lab Interpretation Abnormal (test code = 39865-2) [facility] CenterLipase [id number] 17:24:49 Test Item Value Reference Range Interpretation Comments LIPASE (test code = 0620244267) 25 U/L 0-220 Lab Interpretation (test code = Normal 31226-0) [facility] CenterCBC with Dhcswxpzmhda5742-89-31 17:06:22 Test Item Value Reference Range Interpretation Comments WBC (test code = See_Comment [Automated 8090-2) message] The sy stem which generated this [...] RDW-SD (test code = 46.4 fL 39.0-49.9 39638-3) RDW-CV (test code = 13.3 % 12.0-15.5 788-0) PLT (test code = See_Comment [Automated 777-3) message] The sy stem which generated this result transmitted reference range : 166 - 358 10*3/ ?L. The reference r miky was not used to interpret this result as normal/abnormal . MPV (test code = 10.4 fL 9.5-12.9 83407-1) NRBC/100 WBC (test See_Comment [Automat ed code = 3781853218) message] The system which generated this result transmitted reference range : 0.0 - 10.0 /100 WBCs. The refer ence range was not u sed to interpret th is result as normal/abnormal . NRBC x10^3 (test code <0.01 See_Comment [Auto mated = 5305388691) message] The s ystem which generated this result transmitted reference range : 10*3/?L. The reference range was not used to interpret this result as normal/abnormal . GRAN MAT (NEUT) % 69.6 % (test code = 770-8) IMM GRAN % (test code 0.40 % = 9912908804) LYMPH % (test code = 22.4 % 736-9) MONO % (test code = 7.1 % 5905-5) EOS % (test code = 0.4 % 713-8) BASO % (test code = 0.1 % 706-2) GRAN MAT x10^3(ANC) 5.65 10*3/uL 1.88-7.09 (test code = 3662648837) IMM GRAN x10^3 (test 0.03 10*3/uL 0.00-0.06 code = 2578768395) LYMPH x10^3 (test code 1.82 10*3/uL 1.32-3.29 = 731-0) MONO x10^3 (test code 0.58 10*3/uL 0.33-0.92 = 742-7) EOS x10^3 (test code = 0.03 10*3/uL 0.03-0.39 711-2) BASO x10^3 (test code <0.03 0.01-0.07 = 704-7) Lab Interpretation Abnormal (test code = 43029-2) [facility] ABDOMEN [id number] 18:12:20 Status post cholecystectomy. Mild extra hepatic [...] dilatation in the mid and distal aorta. [facility], Radiant Results Inft User - 12/08/2019 1:13 [...] can been expected finding inthe post cholecystectomy setting.[facility] CenterXR CHEST 1 [id number] 18:03:08Findings and Impression: Clear lungs. No pleural effusion or pneumothorax.Heart size is normal. No acute osseous abnormality. PORTABLE CHEST RADIOGRAPH History: RUQ pain Comparison: 12/25/2018 TECHNIQUE: AP view of the chest. [facility], Radiant Results Inft User - 12/08/2019 1:04 PM CDTPORTABLE CHEST RADIOGRAPHHistory: RUQ pain Comparison: 11/13/2019TECHNIQUE: AP view of the chest.IMPRESSIONFindings and Impression: Clear lungs. No pleural effusion or pneumothorax.Heart size is normal. No acute osseous abnormality. [facility]. METABOLIC PANEL (05658)2019-12-08 17:36:00 Test Item Value Reference Range Interpretation Comments NA (test code = 139 mmol/L 135-145 5115354899) K (test code = 4.2 mmol/L 3.5-5 7592454934) CL (test code = 102 mmol/L 98-108 3024002124) CO2 TOTAL (test code = 27 mmol/L 23-31 4648872852) AGAP (test code = 2-16 4026435338) BUN (test code = 20 mg/dL 7-23 2906620627) GLUCOSE (test code = 105 mg/dL 70-110 3171456125) CREATININE (test code = 1.01 mg/dL 0.5-1.04 5529366074) TOTAL BILI (test code = 0.6 mg/dL 0.1-1.0 5347711835) CALCIUM (test code = 9.9 mg/dL 8.6-10.6 4721216764) T PROTEIN (test code = 8.5 g/dL 6.3-8.2 H 6535598719) ALBUMIN (test code = 4.5 g/dL 3.5-5 8111699192) ALK PHOS (test code = 118 U/L 34-122 0213119195) ALTv (test code = 32 U/L 5-35 1742-6) AST(SGOT) (test code = 39 U/L 13-40 6897778588) eGFR Calculation mL/min/1.73m2 (Non-) (test code = 5629351647) eGFR Calculation mL/min/1.73m2 () (test code = 7491494692) ANTHONY (test code = ANTHONY) Association of [...] tests). Lab Interpretation Abnormal (test code = 05865-2) [facility] CenterURINALYSIS2020-10-26 17:20:00 Test Item Value Reference Range Interpretation Comments APPEARANCE (test code = Hazy Clear A 1424220751) COLOR (test code = Yellow Yellow 8457579758) PH (test code = 4.8-8.0 8946279520) SP GRAVITY (test code = 1.003-1.030 H 5716842152) GLU U QUAL (test code = Normal Normal 5840269706) BLOOD (test code = Negative Negative 8411597904) KETONES (test code = Negative Negative 3390309041) PROTEIN (test code = 30 mg/dL Negative A 2887-8) UROBILIN (test code = Normal Normal 9294730096) BILIRUBIN (test code = Negative Negative 8622043869) NITRITE (test code = Negative Negative 9971410539) LEUK MURRAY (test code = 75/uL Negative A 5687605028) RBC/HPF (test code = See_Comment [Autom ated message] 3816817694) The system [employer] generated this result transmitted ref erence range: 0 - 3 HP F. The reference range was not used to int erpret this result as normal/abnormal . WBC/HPF (test code = See_Comment [Autom ated message] 1330212220) The system [employer] generated this result transmitted ref erence range: 0 - 5 HP F. The reference range was not used to int erpret this result as normal/abnormal . BACTERIA (test code = Negative Negative 4150112940) MUCOUS (test code = Slight Negative LPF A 1985472880) SQ EPITH (test code = HPF 3678183342) HYAL CAST (test code = See_Comment [Aut omated message] 4626055820) The system [employer] generated this result transmitted ref erence range: <=2 LPF. The reference range was not used to int erpret this result as normal/abnormal . Lab Interpretation (test Abnormal code = 68144-9) [facility] WITH [id number] 17:05:00 Test Item Value Reference Range Interpretation [...] RDW-SD (test code = 43.5 fL 39-49.9 79295-2) RDW-CV (test code = 11.9 % 12-15.5 L 788-0) PLT (test code = See_Comment [Automated 777-3) message] The sy stem which generated this result transmitted reference range : 166 - 358 10*3/ ?L. The reference r miky was not used to interpret this result as normal/abnormal . MPV (test code = 10.9 fL 9.5-12.9 52600-3) NRBC/100 WBC (test See_Comment [Automat ed code = 8571448303) message] The system which generated this result transmitted reference range : 0.0 - 10.0 /100 WBCs. The refer ence range was not u sed to interpret th is result as normal/abnormal . NRBC x10^3 (test code <0.01 See_Comment [Auto mated = 9433446321) message] The s ystem which generated this result transmitted reference range : 10*3/?L. The reference range was not used to interpret this result as normal/abnormal . GRAN MAT (NEUT) % 64.8 % (test code = 770-8) IMM GRAN % (test code 0.40 % = 2277775896) LYMPH % (test code = 27.0 % 736-9) MONO % (test code = 6.5 % 5905-5) EOS % (test code = 0.9 % 713-8) BASO % (test code = 0.4 % 706-2) GRAN MAT x10^3(ANC) 4.35 10*3/uL 1.88-7.09 (test code = 0552973501) IMM GRAN x10^3 (test 0.03 10*3/uL 0-0.06 code = 7313320422) LYMPH x10^3 (test code 1.82 10*3/uL 1.32-3.29 = 731-0) MONO x10^3 (test code 0.44 10*3/uL 0.33-0.92 = 742-7) EOS x10^3 (test code = 0.06 10*3/uL 0.03-0.39 711-2) BASO x10^3 (test code 0.03 10*3/uL 0.01-0.07 = 704-7) Lab Interpretation Abnormal (test code = 38498-6) [facility] WO [id number] 16:59:351. ?Nonobstructive left nephrolithiasis. 2. ?No radiographic findings to explain patient's abdominalor flank pain. 3. ?Partially visualized 4 mm solid nodule in the left lower lobe, thoughtto be unchanged.CT abdomen and pelvis without contrast REASON FOR STUDY: Flank pain, stone disease suspected COMP ARISON: 06/24/2025 TECHNIQUE: Unenhanced multidetector axial CT images [...] PELVISLiver: Hepatic dome is not fully within csmsi-dy-jjtk. No focal hepa ticlesions identified within limits [...] PELVISLiver: Hepatic dome is not fully within lnttu-pi-gwkt. No focal hepaticlesions identified within limits of [...] in the left lower lobe, thoughtto be unchanged.[facility] POCT [id number] 16:12:00 Test Item Value Reference Range Interpretation Comments POCT PREG (test code = 1605) negative On board controls acceptable with present C Line (test code = 3574) POCT PREG LOT # (test code = 3575) [id number] POCT PREG TEST DATE (test 05/12/2021 code = 3576) Lab Interpretation (test code = Normal 18505-6) [facility] CenterPOCT URINALYSIS, [id number] 15:17:00 Test Item Value Reference Range Interpretation Comments POCT U SP GRAV (test code = 1.025 mg/dl 1.005-1.025 3255) POCT PH U (test code = 3254) 6.0 mg/dl 5-8 POCT U LEUK EST (test code = Trace Negative - Negative 3262) POCT U NIT (test code = 3262) [...] 3267) Lab Interpretation (test code Abnormal = 40452-1) [facility] CenterPO[facility], [id number] 15:17:00 Test Item Value Reference Range Interpretation [...] 3267) Lab Interpretation (test code Abnormal = 51444-8) [facility] CenterMR, BRAIN, [id number] 19:53:00With seizure protocolThin coronal cuts especially around [...] MDReport Verified Date/Time: 10/25/2018 19:53:41 Reading Location: [facility] C0[facility] Neuro Reading Room EEG AWAKE AND [id number] 19:37:00For STAT EEG- after 5 PM weekdays, weekends and holidays, page the on-call EEG TechReason for exam:-& gt;altered mental statusDATE OF EXAMINATION: 10/25/18EEG NO: [id number] 10: R56.9CPT CODE: [id number] SUMMARY:This is a digital EEG recorded with 32 input channels on a [employer] system and then reviewed with bipolar and [...] seizure for the symptom(s) of interest. HEMOGLOBIN [id number] 14:02:00 Test Item Value Reference Range Interpretation Comments HEMOGLOBIN A1C (BEAKER) (test code = 5.6 % 4.3-6.1 368) TSH/FREE T4 IF [id number] 06:11:00 Test Item Value Reference Range Interpretation Comments THYROID STIMULATING HORMONE 3.63 uIU/mL 0.35-4.94 (BEAKER) (test code = 772) VITAMIN B12 AND [id number] 06:11:00 Test Item Value Reference Range Interpretation Comments VITAMIN B12 (BEAKER) (test code = 272 pg/mL 213-816 774) FOLATE (BEAKER) (test code = 362) 9.4 ng/mL >=7.0 [id number] 05:58:00 Test Item Value Reference Range Interpretation Comments PHOSPHORUS (BEAKER) (test code = 3.6 mg/dL 2.3-4.7 604) [id number] 05:58:00 Test Item Value Reference Range Interpretation Comments MAGNESIUM (BEAKER) (test code = 2.1 mg/dL 1.6-2.6 627) BASIC METABOLIC [id number] 05:58:00 Test Item Value Reference Range Interpretation [...] NOT APPLICABLE FOR DIALYSIS PATIEN TS. LIPID [id number] 05:58:00 Test Item Value Reference Range Interpretation Comments TRIGLYCERIDES (BEAKER) (test code = 191 mg/dL 540) CHOLESTEROL (BEAKER) (test code = 256 mg/dL 631) HDL CHOLESTEROL (BEAKER) (test code 70 mg/dL = 976) LDL CHOLESTEROL CALCULATED (BEAKER) 148 mg/dL (test code = 633) Triglyceride Reference Range: Low Risk <150 Borderline 150-199 High Risk 200- 499 Very High Risk >=500Cholesterol Reference Range: Low Risk <200 Borderline 200-239 High Risk >240HDL Cholesterol Reference Range: Low Risk >=60 High Risk <40LDL Cholesterol Reference Range: Optimal <100 Near Optimal 100-129 Borderline 130-159 High 160-189 Very High >=190HEPATIC FUNCTION [id number] 05:58:00 Test Item Value Reference Range Interpretation [...] (test code = 413) CT, BRAIN, WITHOUT [id number] 00:33:00FINAL REPORT EXAM: CT, BRAIN, WITHOUT CONTRAST [...] Normal Included Orbits: Normal Paranasal Sinuses: Predominantly clearTympanomastoid Cavities: Normal Other: None IMPRESSION:No acute abnormality on noncontrast CT of thehead. Signed: Dionicio Salazar MDReport Verified Date/Time: 10/25/2018 00:33:20 Reading Location: [address] Neuro Reading Room POCT-GLUCOSE [id number] 23:26:00 Test Item Value Reference Range Interpretation Comments POC-GLUCOSE METER 77 mg/dL 70-110 TESTED AT [facility] [address] ([facility]) (test code = [place] [address] 1538) SCREEN, [id number] 18:06:00 Test Item Value Reference Range Interpretation Comments TEST URINE ([facility]) (test Negative code = 583) RAPID DRUG SCREEN, [id number] 16:54:00 Test Item Value Reference Range Interpretation [...] ng/mLOpiate 300 ng/mLMethadone 300 ng/mLAmphetamine/ 1000 ng/mL MethamphetamineThisassay provides an unconfirmed qualitative test result for the clinical management of patients in emergency situations. Chain of custody not maintained. Some [id number] medications, as well as adulterants, may cause inaccurate results. Clinical correlation should be applied. A more comprehensive drug screen or confirmation of a detected drug may be performed upon request.URINALYSIS W/ REFLEX URINE CULTURE 2018-10-24 15:45:00 Test Item Value Reference Range Interpretation [...] code = 1521) SOURCE(BEAKER) (test code = 6125) B-TYPE NATRIURETIC FACTOR (BNP)2018-10-24 15:41:00 Test Item Value Reference Range Interpretation Comments B-TYPE NATRIURETIC PEPTIDE (BEAKER) < pg/mL 0-100 (test code = 700) BASIC METABOLIC [id number] 15:41:00 Test Item Value Reference Range Interpretation [...] DATA TO CALCULA TE ESTIMATED GFR. TROPONIN [id number] 15:34:00 Test Item Value Reference Range Interpretation [...] acute neurological disease, and persistent tachyarrhythmia.HEPATIC FUNCTION [id number] 15:32:00 Test Item Value Reference Range Interpretation [...] (test code = 51 U/L 6-55 347) [id number] 15:27:00 Test Item Value Reference Range Interpretation Comments ETHANOL (BEAKER) (test code = 400) < mg/dL <=10 POCT-GLUCOSE [id number] 15:15:00 Test Item Value Reference Range Interpretation Comments POC-GLUCOSE METER 82 mg/dL 70-110 TESTED AT [facility] [address] (BEAKER) (test code = DEVAN Rice [facility] [address] 1538) RAD, CHEST, 1 VIEW, NON [id number] 15:13:00Reason for exam:->sobShould this be performed at the bedside?->YesFINAL REPORT INDICATION: sob COMPARISON: None TECHNIQUE: Single frontal view ofthe chest. FINDINGS: Lungs and pleura: Clear lungs. No effusion.Heart and mediastinum: Normal heart size. Unremarkable mediastinal contours.Osseous structures: No acute abnormality.Other: None. IMPRESSION: No acute intrathoracic abnormality. Signed: JR Escobar Robert MDReport Verified Date/Time: 10/24/2018 15:13:38 Reading Location: [facility] Radiology Reading Room CBC W/PLT COUNT & AUTO [id number] 15:06:00 Test Item Value Reference Range Interpretation [...] code = 2801) CT, SPINE, CERVICAL, WO [id number] 15:06:00Reason for exam:->r/o c- spine injuryIs the [...] without evidence for fracture. Signed: Cornelius Selby MDReport Verified Date/Time: 10/24/2018 15:06:41 Reading Location: [address] Neuro Reading Room CT, BRAIN/STROKE [id number] 14:38:00Reason for exam:->r/o cvaIs the patient ?->UnknownWhat [...] Shirley Verified Date/Time: 10/24/2018 14:38:49 Reading Location: [address] Consult Reading Room "
[2021-10-21] MEDS ORDERED: HYDROMORPHONE HCL 1 MG/ML INJ ONE (20:54)
[2021-10-21] MEDS ORDERED: NITROFURAN MACRO 100 MG CAP PO ONE (20:54)
[2021-10-21] MEDS ORDERED: KETOROLAC 30 MG/ML INJ ONE (20:54)
[2021-10-21] MEDS ORDERED: NA CHLORIDE 0.9% 1,000 ML ONE (20:55)
[2021-10-21 21:55] LABS: Absolute Lymphocytes (CBC) 3.2 K/uL (0.7-4.9); Hematocrit 26.9 % (36.0-45.0); MCV 89.1 fL (80-100); MPV 7.9 fL (7.6-11.3); RBC Red Blood Cell Count 3.02 M/uL (3.86-4.86)
[2021-10-21] MEDS ORDERED: PROMETHAZINE 25 MG TABLET ONE (22:13)
[2021-10-21 22:14] LABS: Potassium 3.7 mmol/L (3.5-5.1)
--- NOTE | 2021-10-21 22:53 | ER ---
Nurse's Notes [facility] Name: Mckenna Avila Age: 46 yrs Sex: Female : 1975 Arrival Date: 10/21/2021 Time: 16:42 Bed 9 Private MD: Diagnosis: Unspecified renal colic;Lower abdominal pain, unspecified Presentation: 10/21 17:08 Chief complaint: Patient states: I had a lithotripsy done on Sunday and they pulled bm7 the stent out yesterday and now I am bleeding. I went to [place] yesterday and Dr. Bishop said to come see him here today. Coronavirus screen: At this time, the client does not indicate any symptoms associated with coronavirus-19. Ebola Screen: No symptoms or risks identified at this time. Initial Sepsis Screen: Does the patient meet any 2 criteria? No. Patient's initial sepsis screen is negative. Does the patient have a suspected source of infection? No. Patient's initial sepsis screen is negative. Risk Assessment: Do you want to hurt yourself or someone else? Patient reports no desire to harm self or others. Onset of symptoms is unknown. 17:08 Method Of Arrival: Ambulatory bm7 17:08 Acuity: KEIKO 3 bm7 Triage Assessment: 17:09 General: Appears in no apparent distress. uncomfortable, Behavior is calm, cooperative, bm7 appropriate for age. Pain: Complains of pain in pelvis Pain radiates to back. EENT: No deficits noted. No signs and/or symptoms were reported regarding the EENT system. Neuro: No deficits noted. Cardiovascular: No deficits noted. Respiratory: No deficits noted. GI: Abdomen is round non-distended, Bowel sounds present X 4 quads. Abd is soft X 4 quads Reports nausea. : Reports burning with urination, cramping, vaginal bleeding that is. Derm: No deficits noted. No signs and/or symptoms reported regarding the dermatologic system. Musculoskeletal: No deficits noted. No signs and/or symptoms reported regarding the musculoskeletal system. 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 - Social history:: Smoking status: Patient denies any tobacco usage or history of. Screenin:50 Abuse screen: Denies threats or abuse. Nutritional screening: No deficits noted. bb Tuberculosis screening: No symptoms or risk factors identified. Fall Risk None identified. Assessment: 19:50 General: Appears in no apparent distress. uncomfortable, Behavior is calm, cooperative. bb Pain: Complains of pain in abdomen. Neuro: Level of Consciousness is awake, alert, obeys commands, Oriented to person, place, time, situation. Cardiovascular: Capillary refill < 3 seconds Patient's skin is warm and dry. Respiratory: Airway is patent Respiratory effort is even, unlabored, Respiratory pattern is regular. GI: Abdomen is non-distended, Reports lower abdominal pain, upper abdominal pain. : Reports she has a UTI. Derm: Skin is pink, warm \T\ dry. Musculoskeletal: Circulation, motion, and sensation intact. 21:00 Reassessment: Patient is alert, oriented x 3, equal unlabored respirations, skin bb warm/dry/pink. 22:00 Reassessment: Patient is alert, oriented x 3, equal unlabored respirations, skin bb warm/dry/pink. pt requesting phenergan for nausea EDP notified new orders received pt medicated see APR. 23:10 Reassessment: pt requesting pain medication prior to discharge EDP notified new orders bb received pt medicated see APR. 23:10 Reassessment: IV infiltrated EDP notified no new orders received no redness at site bb slight amount of swelling noted. 23:24 Reassessment: Patient is alert, oriented x 3, equal unlabored respirations, skin bb warm/dry/pink. pt verbalized understanding of and agrees to plan of care discharge instructions given pt ambulated with steady gait to exit accompanied by friend. Vital Signs: 17:11 BP 123 / 85; Pulse 86; Resp 16; Temp 98.7(TE); Pulse Ox 98% on R/A; Weight 72.57 kg bm7 (R); Height 5 ft. 7 in. (170.18 cm); Pain 9/10; 22:20 BP 126 / 92; Pulse 82; Resp 16 S; Temp 98.3(O); Pulse Ox 99% on R/A; bb 23:10 BP 107 / 74; Pulse 87; Resp 16 S; Pulse Ox 99% on R/A; bb 17:11 Body Mass Index 25.06 (72.57 kg, 170.18 cm) bm7 ED Course: 16:42 Patient arrived in ED. rg4 17:01 Milvia Cruz [facility]-C [facility]. snw 17:01 Andrés Bishop MD is Attending Physician. snw 17:09 Triage completed. bm7 17:09 Arm band placed on right wrist. bm7 19:50 Patient has correct armband on for positive identification. Bed in low position. Call bb light in reach. Side rails up X 1. Pulse ox on. NIBP on. Warm blanket given. 20:40 Sugar Fowler RN is Primary Nurse. bb 21:35 Initial lab(s) drawn, by me, sent to lab. Inserted saline lock: 20 gauge in left bb antecubital area, using aseptic technique. Blood collected. 23:25 No provider procedures requiring assistance completed. IV discontinued, intact, bb bleeding controlled, No redness/swelling at site. Pressure dressing applied. Administered Medications: 23:11 Discontinued: NS 0.9% 1000 ml IV at 1 bolus Per protocol; 1000 mL bolus bb 21:13 Drug: Dilaudid (HYDROmorphone) 1 mg Route: IM; Site: right gluteus; bb 22:00 Follow up: Response: No adverse reaction; Pain is decreased bb 21:35 Drug: NS 0.9% 1000 ml Route: IV; Rate: 1 bolus; Site: left antecubital; bb 21:39 Drug: Macrobid (nitrofurantoin) 100 mg Route: PO; bb 23:11 Follow up: Response: No adverse reaction bb 21:40 Drug: Ketorolac 30 mg Route: IVP; Site: left antecubital; bb 22:00 Follow up: Response: No adverse reaction bb 22:15 Drug: Phenergan (promethazine) 25 mg Route: PO; bb 23:21 Follow up: Response: No adverse reaction bb 23:15 Drug: Dilaudid (HYDROmorphone) 0.5 mg Route: IM; Site: right gluteus; bb 23:21 Follow up: Response: Medication administered at discharge. bb Medication: 19:50 VIS not applicable for this client. bb Outcome: 22:52 Discharge ordered by . carol 23:25 Discharged to home ambulatory, with family. barrett 23:25 Condition: stable 23:25 Discharge instructions given to patient, Instructed on discharge instructions, follow up and referral plans. medication usage, Demonstrated understanding of instructions, follow-up care, medications, Prescriptions given X 2. 23:26 Patient left the ED. bb Signatures: Milvia Cruz, EH-C CUSTOMER ADVISOR SPECIALIST-Devynw Sugar Fowler, RN RN bb Jo Lau rg4 Sydnee Talbot, RN RN bm7
--- NOTE | 2021-10-21 22:53 | EDPHYS ---
Physician Documentation [facility] Name: Mckenna Avila Age: 46 yrs Sex: Female : 1975 Arrival Date: 10/21/2021 Time: 16:42 Bed 9 Private MD: DANG Physician Andrés Bishop HPI: 10/21 20:36 This 46 yrs old Female presents to ER via Ambulatory with complaints of Abdominal Pain, snw Vaginal Pain, Back Pain. 20:36 The patient presents with abdominal pain in the lower abdomen. Onset: The snw symptoms/episode began/occurred gradually. The symptoms radiate to vagina. Associated signs and symptoms: Pertinent positives: chills, Pertinent negatives: fever. The symptoms are described as constant, crampy. Severity of pain: At its worst the pain was severe. The patient has experienced similar episodes in the past. Jayden Ribeiro, [facility]. 20:38 on Remicade for RA, Crohn's. Takes Imuran, stopped xarelto until urine bleeding ceases. 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 - Social history:: Smoking status: Patient denies any tobacco usage or history of. ROS: 20:33 Eyes: Negative for injury, pain, redness, and discharge, ENT: Negative for injury, snw pain, and discharge, Neck: Negative for injury, pain, and swelling, Cardiovascular: Negative for chest pain, palpitations, and edema, Respiratory: Negative for shortness of breath, cough, wheezing, and pleuritic chest pain. 20:33 MS/Extremity: Negative for injury and deformity, Skin: Negative for injury, rash, and discoloration, Neuro: Negative for headache, weakness, numbness, tingling, and seizure, Psych: Negative for depression, anxiety, suicide ideation, homicidal ideation, and hallucinations. 20:33 Constitutional: Positive for fatigue, malaise, poor PO intake. 20:33 Abdomen/GI: Positive for abdominal pain, nausea. 20:33 Back: Positive for pain with movement. 20:33 : Positive for "I have UTIs all the time, I don't feel oral antibiotics will work." Pt had two recent cultures that are negative for bacteria. States she is bleeding a lot since stent (post lithotripsy) removed yesterday.. Exam: 20:33 Constitutional: This is a well developed, well nourished patient who is awake, alert, snw and in no acute distress. Head/Face: Normocephalic, atraumatic. Eyes: Pupils equal round and reactive to light, extra-ocular motions intact. Lids and lashes normal. Conjunctiva and sclera are non-icteric and not injected. Cornea within normal limits. Periorbital areas with no swelling, redness, or edema. ENT: Nares patent. No nasal discharge, no septal abnormalities noted. Tympanic membranes are normal and external auditory canals are clear. Oropharynx with no redness, swelling, or masses, exudates, or evidence of obstruction, uvula midline. Mucous membranes moist. Neck: Trachea midline, no thyromegaly or masses palpated, and no cervical lymphadenopathy. Supple, full range of motion without nuchal rigidity, or vertebral point tenderness. No Meningismus. Chest/axilla: Normal chest wall appearance and motion. Nontender with no deformity. No lesions are appreciated. Cardiovascular: Regular rate and rhythm with a normal S1 and S2. No gallops, murmurs, or rubs. Normal PMI, no JVD. No pulse deficits. Respiratory: Lungs have equal breath sounds bilaterally, clear to auscultation and percussion. No rales, rhonchi or wheezes noted. No increased work of breathing, no retractions or nasal flaring. Abdomen/GI: Soft, non-tender, with normal bowel sounds. No distension or tympany. No guarding or rebound. No evidence of tenderness throughout. Back: No spinal tenderness. No costovertebral tenderness. Full range of motion. Skin: Warm, dry with normal turgor. Normal color with no rashes, no lesions, and no evidence of cellulitis. MS/ Extremity: Pulses equal, no cyanosis. Neurovascular intact. Full, normal range of motion. Neuro: Awake and alert, GCS 15, oriented to person, place, time, and situation. Cranial nerves II-XII grossly intact. Motor strength 5/5 in all extremities. Sensory grossly intact. Cerebellar exam normal. Normal gait. Psych: Awake, alert, with orientation to person, place and time. Behavior, mood, and affect are within normal limits. Vital Signs: 17:11 BP 123 / 85; Pulse 86; Resp 16; Temp 98.7(TE); Pulse Ox 98% on R/A; Weight 72.57 kg bm7 (R); Height 5 ft. 7 in. (170.18 cm); Pain 9/10; 22:20 BP 126 / 92; Pulse 82; Resp 16 S; Temp 98.3(O); Pulse Ox 99% on R/A; bb 23:10 BP 107 / 74; Pulse 87; Resp 16 S; Pulse Ox 99% on R/A; bb 17:11 Body Mass Index 25.06 (72.57 kg, 170.18 cm) bm7 MDM: 19:24 Patient medically screened. snw 22:50 Data reviewed: vital signs, nurses notes. Data interpreted: Pulse oximetry: on room air snw is 99 %. Interpretation: normal. Counseling: I had a detailed discussion with the patient and/or guardian regarding: the historical points, exam findings, and any diagnostic results supporting the discharge/admit diagnosis, lab results, the need for outpatient follow up, to return to the emergency department if symptoms worsen or persist or if there are any questions or concerns that arise at home, Pt's last two urine culture reports were negative. Previous infection sensitive to macrobid. Will send urine culture today and give Macrobid 100mg daily until pt follows up with Dr. Galindo. Pt understands plan of care.. Response to treatment: the patient's symptoms have markedly improved after treatment. Special discussion: Based on the patient's Hx, exam, and Dx evaluation, there is no indication for emergent surgery or inpatient Tx. It is understood by the patient/guardian that if the Sx's persist or worsen they need to return immediately for re-evaluation. Based on the history and exam findings, there is no indication for further emergent testing or inpatient evaluation. I discussed with the patient/guardian the need to see the urologist for further evaluation of the symptoms. 10/21 19:51 Order name: Urine Culture snw 10/21 19:51 Order name: Urine Microscopic Only snw 10/21 20:22 Order name: CBC with Diff; Complete Time: 22:27 snw 10/21 20:22 Order name: Chem 7; Complete Time: 22:19 snw 10/21 20:22 Order name: Sed Rate; Complete Time: 22:27 snw 10/21 23:21 Order name: Urine --Ancillary (enter results) ds4 10/21 19:51 Order name: Urine Dipstick-Ancillary (obtain specimen); Complete Time: 23:21 snw 10/21 23:22 Order name: Urine Dipstick-Ancillary EDMS 10/21 19:51 Order name: Urine Test (obtain specimen); Complete Time: 23:21 snw Administered Medications: 23:11 Discontinued: NS 0.9% 1000 ml IV at 1 bolus Per protocol; 1000 mL bolus bb 21:13 Drug: Dilaudid (HYDROmorphone) 1 mg Route: IM; Site: right gluteus; bb 22:00 Follow up: Response: No adverse reaction; Pain is decreased bb 21:35 Drug: NS 0.9% 1000 ml Route: IV; Rate: 1 bolus; Site: left antecubital; bb 21:39 Drug: Macrobid (nitrofurantoin) 100 mg Route: PO; bb 23:11 Follow up: Response: No adverse reaction bb 21:40 Drug: Ketorolac 30 mg Route: IVP; Site: left antecubital; bb 22:00 Follow up: Response: No adverse reaction bb 22:15 Drug: Phenergan (promethazine) 25 mg Route: PO; bb 23:21 Follow up: Response: No adverse reaction bb 23:15 Drug: Dilaudid (HYDROmorphone) 0.5 mg Route: IM; Site: right gluteus; bb 23:21 Follow up: Response: Medication administered at discharge. bb Disposition Summary: 10/21/21 22:52 Discharge Ordered Location: Home snw Condition: Stable snw Diagnosis - Unspecified renal colic snw - Lower abdominal pain, unspecified snw Followup: snw - With: Private Physician - When: 2 - 3 days - Reason: Recheck today's complaints, Continuance of care, Re-evaluation by your physician Followup: snw - With: Emergency Department - When: As needed - Reason: Worsening of condition Discharge Instructions: - Discharge Summary Sheet snw - Abdominal Pain, Adult snw - Renal Colic snw - Gas and Gas Pains, Pediatric snw - Dietary Guidelines to Help Prevent Kidney Stones snw - Rehydration, Adult snw - [place] Diet snw Forms: - Medication Reconciliation Form snw - Thank You Letter snw - Antibiotic Education snw - Prescription Opioid Use snw Prescriptions: - Macrobid 100 mg Oral Capsule - take 1 capsule by ORAL route once daily for 21 days; 21 capsule; Refills: 0, snw Product Selection Permitted - promethazine 25 mg Oral Tablet - take 1 tablet by ORAL route every 6 hours As needed; 20 tablet; Refills: 0, snw Product Selection Permitted Signatures: Dispatcher [employer] EDMilvia Card FNP-C SCREEN HANDLER-Csnw Sugar Fowler, RN RN bb Sydnee Talbot, RN RN bm7
[2021-10-21] MEDS ORDERED: HYDROMORPHONE HCL 0.5 MG/0.5 ML INJ ONE (23:18)
[2021-10-21 23:21] LABS: Urine Blood 3+ (Negative); Urine Glucose Negative (Negative); Urine Protein 1+ (Negative); Urine Specific Gravity 1.025 (1.005-1.030); Urine pH 6.5 (5.0-7.0)
[2021-10-21 23:40] LABS: Urine Specific Gravity/Preg 1.025 (1.005-1.030)
[2021-10-21 23:52] LABS: Urine Bacteria <20 /HPF (<20); Urine Mucus Slight /HPF (None Seen); Urine RBC >50 /HPF (None Seen)
[2021-10-22 04:26] VITALS: TEMP 98.3; O2SAT 99
[2021-10-22 04:30] VITALS: BP 107/74
== END 2021-10-21 23:26 | disposition home or self-care (01) ==
LOC: ER 16:39
DX: N23 Unspecified renal colic (principal); Z87.442 Personal history of urinary calculi; Z88.1 Allergy status to other antibiotic agents; Z88.3 Allergy status to other anti-infective agents
CPT/HCPCS: 87088; 85025; 87086; 80048; 36415; 81025; 85652; 96372; 96374; 99284; Q0169; J1170 ×2; J7030; 81003; 81015; 87077; 87186

== ENCOUNTER 2022-02-02 09:46 | Day surgery (SDC) | payer BC ==
[2022-02-02] MEDS ORDERED: INFLIXIMAB-ABDA 700 MG in NA CHLORIDE 0.9% 250 ML IV ONE (10:00)
[2022-02-02] MEDS ORDERED: PROMETHAZINE INJ 25 MG/ML AMP ONE (10:18)
[2022-02-02] MEDS ORDERED: ACETAMINOPHEN 325 MG TABLET ONE (10:18)
[2022-02-02] MEDS ORDERED: DIPHENHYDRAMINE 12.5MG/5ML LIQ PO ONE (10:30)
[2022-02-02 11:00] VITALS: BMI 22.7
[2022-02-02] MEDS ORDERED: NA CHLORIDE 0.9% 500 ML ONE (11:48)
[2022-02-02 12:15] VITALS: O2SAT 100
[2022-02-02 14:27] VITALS: BP 111/65; TEMP 98.1
== END 2022-02-02 14:10 | disposition home or self-care (01) ==
LOC: DS 09:46
PROVIDERS: ATTEND Internal Medicine Gastroenterology
DX: K50.90 Crohn's disease, unspecified, without complications (principal)
CPT/HCPCS: 96365; 96366; J2550; Q0163; J7050; J7040

== ENCOUNTER 2022-03-10 08:22 | Day surgery (SDC) | payer BC ==
[2022-03-10] MEDS ORDERED: INFLIXIMAB-ABDA 700 MG in NA CHLORIDE 0.9% 250 ML IV ONE (09:00)
[2022-03-10] MEDS ORDERED: NA CHLORIDE 0.9% 250 ML ONE (09:20)
[2022-03-10] MEDS ORDERED: PROMETHAZINE INJ 25 MG/ML AMP ONE (09:25)
[2022-03-10] MEDS ORDERED: DIPHENHYDRAMINE 25 MG TAB/CAP ONE (09:25)
[2022-03-10] MEDS ORDERED: ACETAMINOPHEN 500 MG TAB ONE (09:26)
[2022-03-10 13:03] VITALS: TEMP 98.7; O2SAT 100; BMI 23.8
[2022-03-10 13:06] VITALS: BP 158/82
== END 2022-03-10 12:00 | disposition home or self-care (01) ==
LOC: DS 08:22
PROVIDERS: ATTEND Internal Medicine Gastroenterology
DX: K50.90 Crohn's disease, unspecified, without complications (principal)
CPT/HCPCS: 96365; 96366; J2550; Q5104; J7050 ×2

== ENCOUNTER → 2022-04-20 | Day surgery (SDC) | payer BC ==
[~2022-04-20] MED LIST: INFLIXIMAB-ABDA 700 MG in NA CHLORIDE 0.9% 250 ML IV ONE
[2022-04-20 10:12] VITALS: O2SAT 100; BMI 25.7
[2022-04-21 11:43] VITALS: BP 122/75; TEMP 96.8
== END ==
LOC: DS 09:14
PROVIDERS: ATTEND Internal Medicine Gastroenterology
DX: K50.911 Crohn's disease, unspecified, with rectal bleeding (principal); Z53.8 Procedure and treatment not carried out for other reasons
CPT/HCPCS: J7050; Q5104

== ENCOUNTER 2022-04-21 09:15 | Day surgery (SDC) | payer BC ==
[2022-04-21] MEDS ORDERED: INFLIXIMAB-ABDA 700 MG in NA CHLORIDE 0.9% 250 ML IV ONE (09:30)
[2022-04-21] MEDS ORDERED: PROMETHAZINE INJ 25 MG/ML AMP ONE (09:38)
[2022-04-21] MEDS ORDERED: NA CHLORIDE 0.9% 250 ML ONE (10:07)
[2022-04-21 12:47] VITALS: BP 122/25; TEMP 96.7; O2SAT 100
== END 2022-04-21 12:40 | disposition home or self-care (01) ==
LOC: DS 09:15
PROVIDERS: ATTEND Internal Medicine Gastroenterology
DX: K50.90 Crohn's disease, unspecified, without complications (principal)
CPT/HCPCS: 96365; 96366; J2550; J7050; Q5104

== ENCOUNTER 2022-06-29 09:15 | Day surgery (SDC) | payer BC ==
[2022-06-29] MEDS ORDERED: DIPHENHYDRAMINE 25 MG TAB/CAP ONE (09:26)
[2022-06-29] MEDS ORDERED: PROMETHAZINE INJ 25 MG/ML AMP ONE (09:26)
[2022-06-29] MEDS ORDERED: ACETAMINOPHEN 500 MG TAB ONE (09:27)
[2022-06-29] MEDS ORDERED: NA CHLORIDE 0.9% 250 ML ONE (09:27)
[2022-06-29] MEDS ORDERED: INFLIXIMAB-ABDA 700 MG in NA CHLORIDE 0.9% 250 ML IV ONE (10:00)
[2022-06-29 15:05] VITALS: BP 147/86; TEMP 97.2; O2SAT 100
== END 2022-06-29 12:24 | disposition home or self-care (01) ==
LOC: DS 09:15
PROVIDERS: ATTEND Internal Medicine Gastroenterology
DX: K50.90 Crohn's disease, unspecified, without complications (principal)
CPT/HCPCS: 96365; 96366; J2550; Q5104; J7050 ×2

== ENCOUNTER 2022-07-27 07:05 | Day surgery (SDC) | payer BC ==
[2022-07-27] MEDS ORDERED: DIPHENHYDRAMINE 25 MG TAB/CAP ONE (07:35)
[2022-07-27] MEDS ORDERED: PROMETHAZINE INJ 25 MG/ML AMP ONE (07:35)
[2022-07-27] MEDS ORDERED: ACETAMINOPHEN 500 MG TAB ONE (07:35)
[2022-07-27] MEDS ORDERED: NA CHLORIDE 0.9% 250 ML ONE (07:36)
[2022-07-27] MEDS ORDERED: INFLIXIMAB-ABDA 700 MG in NA CHLORIDE 0.9% 250 ML IV ONE (08:00)
[2022-07-27 08:40] VITALS: BMI 26.9
[2022-07-27 11:15] VITALS: BP 147/89; TEMP 97.1; O2SAT 100
== END 2022-07-27 10:35 | disposition home or self-care (01) ==
LOC: DS 07:05
PROVIDERS: ATTEND Internal Medicine Gastroenterology
DX: K50.90 Crohn's disease, unspecified, without complications (principal)
CPT/HCPCS: 96365; 96366; J2550; Q5104; J7050 ×2

== ENCOUNTER 2022-08-24 07:33 | Day surgery (SDC) | payer BC ==
[2022-08-24] MEDS ORDERED: PROMETHAZINE INJ 25 MG/ML AMP ONE (07:51)
[2022-08-24] MEDS ORDERED: ACETAMINOPHEN 325 MG TABLET ONE (07:52)
[2022-08-24] MEDS ORDERED: DIPHENHYDRAMINE 25 MG TAB/CAP ONE (07:52)
[2022-08-24] MEDS ORDERED: NA CHLORIDE 0.9% 250 ML ONE (07:53)
[2022-08-24] MEDS ORDERED: INFLIXIMAB-ABDA 700 MG in NA CHLORIDE 0.9% 250 ML IV ONE (08:00)
[2022-08-24 08:44] VITALS: BMI 28.1
[2022-08-24 12:46] VITALS: BP 113/79; TEMP 97.4; O2SAT 99
== END 2022-08-24 10:40 | disposition home or self-care (01) ==
LOC: DS 07:33
PROVIDERS: ATTEND Internal Medicine Gastroenterology
DX: K50.90 Crohn's disease, unspecified, without complications (principal)
CPT/HCPCS: 96365; 96366; J2550; Q5104; J7050 ×2

== ENCOUNTER 2022-09-21 08:28 | Day surgery (SDC) | payer BC ==
[2022-09-21] MEDS ORDERED: DIPHENHYDRAMINE 25 MG TAB/CAP ONE (08:45)
[2022-09-21] MEDS ORDERED: ACETAMINOPHEN 325 MG TABLET ONE (08:45)
[2022-09-21] MEDS ORDERED: INFLIXIMAB-ABDA 700 MG in NA CHLORIDE 0.9% 250 ML IV ONE (09:00)
[2022-09-21 09:11] VITALS: BMI 27.3
[2022-09-21] MEDS ORDERED: NA CHLORIDE 0.9% 250 ML ONE (09:12)
[2022-09-21] MEDS ORDERED: PROMETHAZINE INJ 25 MG/ML AMP ONE (09:49)
[2022-09-21 11:35] VITALS: BP 85/54; TEMP 97; O2SAT 99
== END 2022-09-21 12:39 | disposition home or self-care (01) ==
LOC: DS 08:28
PROVIDERS: ATTEND Internal Medicine Gastroenterology
DX: K50.90 Crohn's disease, unspecified, without complications (principal)
CPT/HCPCS: 96365; 96366; J2550; Q5104; J7050 ×2

== ENCOUNTER 2022-09-23 12:19 | Emergency (ER) | payer BC ==
--- OUTSIDE RECORDS SUMMARY | 2022-09-23 12:44 | XMS REPORT | Continuity of Care Document ---
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 Cough. albuterol 2021-0 Yes [id number] 2{puff} Inhale 2 [facility] 90 9-17 Puffs ity of mcg/actuati 00:00: every 4 [place] as on inhaler 00 (four) Medical hours as Branch needed for Wheezing or Shortness of Breath. benzonatate 2-0 Yes [id number] 100mg Take 1 [facility] 100 mg 9-17 capsule by ity of capsule 00:00: mouth 3 (three) Medical times Branch daily as needed for Cough. albuterol 2022-0 Yes [id number] 2{puff} Inhale 2 [facility] 90 9-17 Puffs ity of mcg/actuati 00:00: every 4 [place] as on inhaler 00 (four) Medical hours as Branch needed for Wheezing or Shortness of Breath. benzonatate Yes [id number] 100mg Take 1 [facility] 100 mg 9-17 capsule by ity of capsule 00:00: mouth 3 00 (three) Medical times Branch daily as needed for Cough. albuterol Yes [id number] 2{puff} Inhale 2 [facility] 90 9-17 Puffs ity of mcg/actuati 00:00: every 4 [place] as on inhaler 00 (four) Medical hours as Branch needed for Wheezing or Shortness of Breath. benzonatate Yes [id number] 100mg Take 1 [facility] 100 mg 9-17 capsule by ity of capsule 00:00: mouth 3 00 (three) Medical times Branch daily as needed for Cough. albuterol Yes [id number] 2{puff} Inhale 2 [facility] 90 9-17 Puffs ity of mcg/actuati 00:00: every 4 [place] as on inhaler 00 (four) Medical hours as Branch needed for Wheezing or Shortness of Breath. proMETHazin 2022- No [id number] 25mg Take 1 [facility] e 25 mg 10-29 tablet by ity of tablet 00:00: 00:00 mouth [place] 00 :00 every 6 Medical (six) Branch hours as needed for Nausea and Vomiting (N/V). traMADoL 50 2022- No [id number] 50mg Take 1 [facility] vers mg tablet 10-29 tablet by ity of 00:00: 00:00 mouth [place] 00 :00 every 6 Medical (six) Branch hours as needed (pain). Indication s: acute pain proMETHazin 2022- No [id number] 25mg Take 1 [facility] e 25 mg 10-29 tablet by ity of tablet 00:00: 00:00 mouth [place] 00 :00 every 6 Medical (six) Branch hours as needed for Nausea and Vomiting (N/V). traMADoL 50 2022- No [id number] 50mg Take 1 [facility] vers mg tablet 10-29 tablet by ity of 00:00: 00:00 mouth [place] 00 :00 every 6 Medical (six) Branch hours as needed (pain). Indication s: acute pain proMETHazin 2022- No [id number] 25mg Take 1 [facility] e 25 mg 10-29 tablet by ity of tablet 00:00: 00:00 mouth [place] 00 :00 every 6 Medical (six) Branch hours as needed for Nausea and Vomiting (N/V). traMADoL 50 2022- No [id number] 50mg Take 1 [facility] vers mg tablet 10-29 tablet by ity of 00:00: 00:00 mouth [place] 00 :00 every 6 Medical (six) Branch hours as needed (pain). Indication s: acute pain ketorolac No 30mg 30 mg, Unive rs (TORADOL) 10-21 Slow IV ity of injection 02:30: 02:18 Push, [place] 30 mg 00 :00 ONCE, 1 Medical dose, On [facility] 10/20/21 at 2130, GIGI FENTanyl PF No 75ug 75 mcg, Un matt (SUBLIMAZE 10-21 Slow IV ity o f (PF)) 01:30: 00:47 Push, [place] injection 00 :00 ONCE, 1 Medical 75 mcg dose, On Branch [facility] 10/20/21 at 2030, Routine iopamidol 2021- No [id number] 100mL 100 mL, Univers (ISOVUE 10-21 Intravenou ity o f 370-500 mL) 01:15: 01:15 s, ONCE, 1 [place] injection 00 :00 dose, On Medica l 100 mL [facility] 10/20/21 Branch at 2015, Routine proMETHazin No 25mg 25 mg, IV Univers e 10-21 Piggyback, ity of (PHENERGAN) 00:45: 00:47 ONCE, 1 [place] 25 mg in 00 :00 dose, On Medical NaCl 0.9% [facility] 10/20/21 Bran ch (NS) 50 mL at 1945, IV GIGI piggyback NaCl 0.9% 2021- No 500mL at 999 Univ ers (NS) bolus 10-21 mL/hr, 500 it y of infusion 00:00: 23:56 mL, IV [place] 500 mL 00 :00 Piggyback, Medical ONCE, 1 Branch dose, On [facility] 10/20/21 at 1900, STAT ondansetron No 4mg 4 mg, Slow Univers (ZOFRAN 10-20 IV Push, ity of (PF)) 23:45: 22:48 ONCE, 1 [place] injection 4 00 :00 dose, On Medi bernadine mg [facility] 10/20/21 Branch at 1845, GIGI FENTanyl PF 2021- No 75ug 75 mcg, Un matt (SUBLIMAZE 10-20 Slow IV ity o f (PF)) 23:45: 22:48 Push, [place] injection 00 :00 ONCE, 1 Medical 75 mcg dose, On Branch [facility] 10/20/21 at 1845, STAT Promethazin Promethazin 2021- No 1{table BID Promethazi e HCl 25 MG e HCl 25 MG 10-12 t_as_ne ne HCl 25 00:00: 00:00 eded} MG 00 :00 Promethazin Promethazin 2021- No 1{table BID Promethazi e HCl 25 MG e HCl 25 MG 10-12 t_as_ne ne HCl 25 00:00: 00:00 eded} MG 00 :00 FENTanyl PF 2021- No 25ug 25 mcg, [...] Branch 08/26/21 at 1345, GIGI FENTanyl PF 2021- No 50ug 50 mcg, Un matt (SUBLIMAZE 08-26 Slow IV ity o f (PF)) 18:15: 17:15 Push, [place] injection 00 :00 ONCE, 1 Medical 50 mcg dose, On Branch 08/26/21 at 1315, Routine iopamidol 2021- No [id number] 50mL 50 mL, Univers (ISOVUE 08-26 Intravenou [...] Branch 08/26/21 at 1130, GIGI morpHINE (2 2021- No [...] by mouth ity of tablet 03:45: daily. [place] [address] Medical Branch Hydrocodone 2020-02 Yes 1{tbl} Take [...] -02 by mouth ity of 03:45: daily. [place] [address] Medical Branch methocarbam 2020-02 Yes 500mg Take 500 U nivers oL 500 mg 1-02 mg by ity of tablet 03:45: mouth at [place] [address] bedtime. Medical Branch dicyclomine 2020-02 Yes 20mg Take 20 mg [facility] 20 mg -02 by mouth 3 ity of tablet 03:45: (three) [place] 04 times Medical daily. Branch famotidine 2020-02 Yes 40mg Take 40 mg U nivers 40 mg -02 by mouth ity of tablet 03:45: at [place] [address] bedtime. Medical Branch albuterol 2020-02 Yes 2{puff} [...] by mouth ity of tablet 03:45: daily. [place] [address] Medical Branch Hydrocodone 2020-02 Yes 1{tbl} Take [...] 02 by mouth ity of 03:45: daily. [place] Medical Branch methocarbam 2020-02 Yes 500mg Take 500 U nivers oL 500 mg -02 mg by ity of tablet 03:45: mouth at [place] [address] bedtime. Medical Branch dicyclomine 2020-02 Yes 20mg Take 20 mg [facility] 20 mg 02 by mouth 3 ity of tablet 03:45: (three) [place] 04 times Medical daily. Branch famotidine 2020-02 Yes 40mg Take 40 mg U nivers 40 mg 02 by mouth ity of tablet 03:45: at [place] [address] bedtime. Medical Branch albuterol 2020-02 Yes 2{puff} [...] by mouth ity of tablet 03:45: daily. [place] [address] Medical Branch Hydrocodone 2020-02 Yes 1{tbl} Take 1 Un matt -Acetaminop 1-02 tablet by ity of hen 7.5-300 03:45: mouth 3 [place] as mg tablet 04 (three) Medical times [place] daily. tiZANidine 2020-02 Yes 4mg Take 4 mg Un matt 4 mg tablet -02 by mouth 3 it y of 03:45: (three) [place] 04 times Medical daily. Branch foLIC acid 2020-02 Yes 3mg Take 3 mg Un matt 1 mg tablet -02 by mouth ity of 03:45: daily. [place] [address] Medical Branch methocarbam 2020-02 Yes 500mg Take 500 U nivers oL 500 mg 1-02 mg by ity of tablet 03:45: mouth at [place] 04 bedtime. Medical Branch dicyclomine 2020-02 Yes 20mg Take 20 mg [facility] 20 mg -02 by mouth 3 ity of tablet 03:45: (three) [place] 04 times Medical daily. Branch famotidine 2020-02 Yes 40mg Take 40 mg U nivers 40 mg 02 by mouth ity of tablet 03:45: at [place] [address] bedtime. Medical Branch albuterol 2020-02 Yes 2{puff} [...] by mouth ity of tablet 03:45: daily. [address] Branch Hydrocodone 2020-02 Yes 1{tbl} Take 1 Un matt -Acetaminop 1-02 tablet by ity of hen 7.5-300 03:45: mouth 3 [place] as mg tablet 04 (three) Medical times [place] daily. tiZANidine 2020-02 Yes 4mg Take 4 mg Un matt 4 mg tablet -02 by mouth 3 it y of 03:45: (three) [place] 04 times Medical daily. Branch foLIC acid 2020-02 Yes 3mg Take 3 mg Un matt 1 mg tablet 02 by mouth ity of 03:45: daily. [place] [address] Medical Branch methocarbam 2020-02 Yes 500mg Take 500 U nivers oL 500 mg -02 mg by ity of tablet 03:45: mouth at [place] [address] bedtime. Medical Branch dicyclomine 2020-02 Yes 20mg Take 20 mg [facility] 20 mg 02 by mouth 3 ity of tablet 03:45: (three) [place] 04 times Medical daily. Branch famotidine 2020-02 Yes 40mg Take 40 mg U nivers 40 mg 02 by mouth ity of tablet 03:45: at [place] [address] bedtime. Medical Branch albuterol 2020-02 Yes 2{puff} Inhale 2 U nivers 90 - Puffs 3 ity of mcg/actuati 03:45: (three) [place] as on inhaler 04 times Medical daily. Branch diphenoxyla 2020-02 Yes 1{tbl} Take 1 Un matt te-atropine 02 tablet by ity of (LOMOTIL) 03:45: mouth [place] 2.5-0.025 04 needed. Medical mg tablet Branch Dexlansopra 2020-02 Yes 1{capsu Take 1 U nivers zole 02 le} capsule by ity of (DEXILANT) 03:45: mouth [place] 60 mg 04 before Medical capsule meals. Branch predniSONE 2020-02 Yes 20mg Take 20 mg U nivers 10 mg 02 by mouth ity of tablet 03:45: daily. [place] [address] Medical Branch Hydrocodone 2020-02 Yes 1{tbl} Take [...] 02 by mouth ity of 03:45: daily. [place] [address] Medical Branch methocarbam 2020-02 Yes 500mg Take 500 U nivers oL 500 mg 1-02 mg by ity of tablet 03:45: mouth at [place] 04 bedtime. Medical Branch dicyclomine 2020-02 Yes 20mg Take 20 mg [facility] 20 mg 1-02 by mouth 3 ity of tablet 03:45: (three) [place] 04 times Medical daily. Branch famotidine 2020-02 Yes 40mg Take 40 mg U nivers 40 mg 1-02 by mouth ity of tablet 03:45: at [place] [address] bedtime. Medical Branch diphenoxyla 2020-02 Yes 1{tbl} Take 1 [...] by mouth ity of tablet 03:45: daily. [place] [address] Medical Branch Hydrocodone 2020-02 Yes 1{tbl} Take 1 Un matt -Acetaminop 1-02 tablet by ity of hen 7.5-300 03:45: mouth 3 [place] as mg tablet 04 (three) Medical times [place] daily. tiZANidine 2020-02 Yes 4mg Take 4 mg Un matt 4 mg tablet -02 by mouth 3 it y of 03:45: (three) [place] 04 times Medical daily. Branch methocarbam 2020-02 Yes 500mg Take 500 U nivers oL 500 mg 1-02 mg by ity of tablet 03:45: mouth at [place] [address] bedtime. Medical Branch dicyclomine 2020-02 Yes 20mg Take 20 mg [facility] 20 mg 1-02 by mouth 3 ity of tablet 03:45: (three) [place] 04 times Medical daily. Branch famotidine 2020-02 Yes 40mg Take 40 mg U nivers 40 mg 1-02 by mouth ity of tablet 03:45: at [place] [address] bedtime. Medical Branch diphenoxyla 2020-02 Yes 1{tbl} Take 1 Un matt te-atropine 1-02 tablet by ity of (LOMOTIL) 03:45: mouth [place] 2.5-0.025 04 needed. Medical mg tablet Branch predniSONE 2020-02 Yes 20mg Take 20 mg U nivers 10 mg 1-02 by mouth ity of tablet 03:45: daily. [place] Medical Branch Hydrocodone 2020-02 Yes 1{tbl} Take 1 Un matt -Acetaminop 1-02 tablet by ity of hen 7.5-300 03:45: mouth 3 [place] as mg tablet 04 (three) Medical times [place] daily. tiZANidine 2020-02 Yes 4mg Take 4 mg Un matt 4 mg tablet 1-02 by mouth 3 it y of 03:45: (three) [place] 04 times Medical daily. Branch methocarbam 2020-02 Yes 500mg Take 500 U nivers oL 500 mg 1-02 mg by ity of tablet 03:45: mouth at [place] [address] bedtime. Medical Branch dicyclomine 2020-02 Yes 20mg Take 20 mg [facility] 20 mg 1-02 by mouth 3 ity of tablet 03:45: (three) [place] 04 times Medical daily. Branch famotidine 2020-02 Yes 40mg Take 40 mg U nivers 40 mg 1-02 by mouth ity of tablet 03:45: at [place] [address] bedtime. Medical Branch diphenoxyla 2020-02 Yes 1{tbl} Take 1 Un matt te-atropine 1-02 tablet by ity of (LOMOTIL) 03:45: mouth [place] 2.5-0.025 04 needed. Medical mg tablet Branch predniSONE 2020-02 Yes 20mg Take 20 mg U nivers 10 mg 1-02 by mouth ity of tablet 03:45: daily. [place] Medical Branch Hydrocodone 2020-02 Yes 1{tbl} Take 1 Un matt -Acetaminop 1-02 tablet by ity of hen 7.5-300 03:45: mouth 3 [place] as mg tablet 04 (three) Medical times [place] daily. tiZANidine 2020-02 Yes 4mg Take 4 mg Un matt 4 mg tablet 1-02 by mouth 3 it y of 03:45: (three) [place] 04 times Medical daily. Branch methocarbam 2020-02 Yes 500mg Take 500 U nivers oL 500 mg 1-02 mg by ity of tablet 03:45: mouth at [place] 04 bedtime. Medical Branch dicyclomine 2020-02 Yes 20mg Take 20 mg [facility] 20 mg 1-02 by mouth 3 ity of tablet 03:45: (three) [place] [address] times Medical daily. Branch famotidine 2020-02 Yes 40mg Take 40 mg U nivers 40 mg 1-02 by mouth ity of tablet 03:45: at [place] [address] bedtime. Medical Branch diphenoxyla 2020-02 Yes 1{tbl} Take 1 Un matt te-atropine 1-02 tablet by ity of (LOMOTIL) 03:45: mouth as [place] 2.5-0.025 04 needed. Medical mg tablet Branch predniSONE 2020-02 Yes 20mg Take 20 mg U nivers 10 mg -02 by mouth ity of tablet 03:45: daily. [place] [address] Medical Branch Hydrocodone 2020-02 Yes 1{tbl} Take 1 Un matt -Acetaminop 1-02 tablet by ity of hen 7.5-300 03:45: mouth 3 [place] as mg tablet 04 (three) Medical times Branch daily. tiZANidine 2020-02 Yes 4mg Take 4 mg Un matt 4 mg tablet -02 by mouth 3 it y of 03:45: (three) [place] [address] times Medical daily. Branch methocarbam 2020-02 Yes 500mg Take 500 U nivers oL 500 mg 1-02 mg by ity of tablet 03:45: mouth at [place] [address] bedtime. Medical Branch dicyclomine 2020-02 Yes 20mg Take 20 mg [facility] 20 mg -02 by mouth 3 ity of tablet 03:45: (three) [place] [address] times Medical daily. Branch famotidine 2020-02 Yes 40mg Take 40 mg U nivers 40 mg 1-02 by mouth ity of tablet 03:45: at [place] [address] bedtime. Medical Branch diphenoxyla 2020-02 Yes 1{tbl} Take 1 Un matt te-atropine 1-02 tablet by ity of (LOMOTIL) 03:45: mouth as [place] 2.5-0.025 04 needed. Medical mg tablet Branch predniSONE 2020-02 Yes 20mg Take 20 mg U nivers 10 mg 1-02 by mouth ity of tablet 03:45: daily. [place] [address] Medical Branch Hydrocodone 2020-02 Yes 1{tbl} Take 1 Un matt -Acetaminop 1-02 tablet by ity of hen 7.5-300 03:45: mouth 3 [place] as mg tablet 04 (three) Medical times [place] daily. tiZANidine 2020-02 Yes 4mg Take 4 mg Un matt 4 mg tablet 1-02 by mouth 3 it y of 03:45: (three) [place] 04 times Medical daily. Branch methocarbam 2020-02 Yes 500mg Take 500 U nivers oL 500 mg 1-02 mg by ity of tablet 03:45: mouth at [place] 04 bedtime. Medical Branch dicyclomine 2020-02 Yes 20mg Take 20 mg [facility] 20 mg 1-02 by mouth 3 ity of tablet 03:45: (three) [place] 04 times Medical daily. Branch famotidine 2020-02 Yes 40mg Take 40 mg U nivers 40 mg 1-02 by mouth ity of tablet 03:45: at [place] [address] bedtime. Medical Branch diphenoxyla 2020-02 Yes 1{tbl} Take 1 Un matt te-atropine 1-02 tablet by ity of (LOMOTIL) 03:45: mouth as [place] 2.5-0.025 04 needed. Medical mg tablet Branch predniSONE 2020-02 Yes 20mg Take 20 mg U nivers 10 mg 1-02 by mouth ity of tablet 03:45: daily. [place] [address] Medical Branch Hydrocodone 2020-02 Yes 1{tbl} Take 1 Un matt -Acetaminop 1-02 tablet by ity of hen 7.5-300 03:45: mouth 3 [place] as mg tablet 04 (three) Medical times [place] daily. tiZANidine 2020-02 Yes 4mg Take 4 mg Un matt 4 mg tablet 1-02 by mouth 3 it y of 03:45: (three) [place] 04 times Medical daily. Branch methocarbam 2020-02 Yes 500mg Take 500 U nivers oL 500 mg 1-02 mg by ity of tablet 03:45: mouth at [place] 04 bedtime. Medical Branch dicyclomine 2020-02 Yes 20mg Take 20 mg [facility] 20 mg 1-02 by mouth 3 ity of tablet 03:45: (three) [place] 04 times Medical daily. Branch famotidine 2020-02 Yes 40mg Take 40 mg U nivers 40 mg 1-02 by mouth ity of tablet 03:45: at [place] [address] bedtime. Medical Branch diphenoxyla 2020-02 Yes 1{tbl} Take 1 Un matt te-atropine 1-02 tablet by ity of (LOMOTIL) 03:45: mouth as [place] 2.5-0.025 04 needed. Medical mg tablet Branch predniSONE 2020-02 Yes 20mg Take 20 mg U nivers 10 mg 1-02 by mouth ity of tablet 03:45: daily. [place] [address] Medical Branch Hydrocodone 2020-02 Yes 1{tbl} Take 1 Un matt -Acetaminop 1-02 tablet by ity of hen 7.5-300 03:45: mouth 3 [place] as mg tablet 04 (three) Medical times [place] daily. tiZANidine 2020-02 Yes 4mg Take 4 mg Un matt 4 mg tablet -02 by mouth 3 it y of 03:45: (three) [place] 04 times Medical daily. Branch methocarbam 2020-02 Yes 500mg Take 500 U nivers oL 500 mg 1-02 mg by ity of tablet 03:45: mouth at [place] [address] bedtime. Medical Branch dicyclomine 2020-02 Yes 20mg Take 20 mg [facility] 20 mg -02 by mouth 3 ity of tablet 03:45: (three) [place] 04 times Medical daily. Branch famotidine 2020-02 Yes 40mg Take 40 mg U nivers 40 mg -02 by mouth ity of tablet 03:45: at [place] [address] bedtime. Medical Branch diphenoxyla 2020-02 Yes 1{tbl} Take 1 Un matt te-atropine 1-02 tablet by ity of (LOMOTIL) 03:45: mouth as [place] 2.5-0.025 04 needed. Medical mg tablet Branch predniSONE 2020-02 Yes 20mg Take 20 mg U nivers 10 mg 1-02 by mouth ity of tablet 03:45: daily. [place] [address] Medical Branch Hydrocodone 2020-02 Yes 1{tbl} Take 1 Un matt -Acetaminop 1-02 tablet by ity of hen 7.5-300 03:45: mouth 3 [place] as mg tablet 04 (three) Medical times [place] daily. tiZANidine 2020-02 Yes 4mg Take 4 mg Un matt 4 mg tablet 1-02 by mouth 3 it y of 03:45: (three) [place] 04 times Medical daily. Branch methocarbam 2020-02 Yes 500mg Take 500 U nivers oL 500 mg 1-02 mg by ity of tablet 03:45: mouth at [place] 04 bedtime. Medical Branch dicyclomine 2020-02 Yes 20mg Take 20 mg [facility] 20 mg 1-02 by mouth 3 ity of tablet 03:45: (three) [place] 04 times Medical daily. Branch famotidine 2020-02 Yes 40mg Take 40 mg U nivers 40 mg 1-02 by mouth ity of tablet 03:45: at [place] [address] bedtime. Medical Branch diphenoxyla 2020-02 Yes 1{tbl} Take 1 Un matt te-atropine 1-02 tablet by ity of (LOMOTIL) 03:45: mouth as [place] 2.5-0.025 04 needed. Medical mg tablet Branch predniSONE 2020-02 Yes 20mg Take 20 mg U nivers 10 mg 1-02 by mouth ity of tablet 03:45: daily. [place] [address] Medical Branch Hydrocodone 2020-02 Yes 1{tbl} Take 1 Un matt -Acetaminop 1-02 tablet by ity of hen 7.5-300 03:45: mouth 3 [place] as mg tablet 04 (three) Medical times [place] daily. tiZANidine 2020-02 Yes 4mg Take 4 mg Un matt 4 mg tablet -02 by mouth 3 it y of 03:45: (three) [place] 04 times Medical daily. Branch methocarbam 2020-02 Yes 500mg Take 500 U nivers oL 500 mg 1-02 mg by ity of tablet 03:45: mouth at [place] [address] bedtime. Medical Branch dicyclomine 2020-02 Yes 20mg Take 20 mg [facility] 20 mg 1-02 by mouth 3 ity of tablet 03:45: (three) [place] 04 times Medical daily. Branch famotidine 2020-02 Yes 40mg Take 40 mg U nivers 40 mg 1-02 by mouth ity of tablet 03:45: at [place] [address] bedtime. Medical Branch diphenoxyla 2020-02 Yes 1{tbl} Take 1 Un matt te-atropine 1-02 tablet by ity of (LOMOTIL) 03:45: mouth as [place] 2.5-0.025 04 needed. Medical mg tablet Branch predniSONE 2020-02 Yes 20mg Take 20 mg U nivers 10 mg -02 by mouth ity of tablet 03:45: daily. [place] 04 Medical Branch Hydrocodone 2020-02 Yes 1{tbl} Take 1 Un matt -Acetaminop 1-02 tablet by ity of hen 7.5-300 03:45: mouth 3 [place] as mg tablet 04 (three) Medical times Branch daily. tiZANidine 2020-02 Yes 4mg Take 4 mg Un matt 4 mg tablet 02 by mouth 3 it y of 03:45: (three) [place] 04 times Medical daily. Branch methocarbam 2020-02 Yes 500mg Take 500 U nivers oL 500 mg 1-02 mg by ity of tablet 03:45: mouth at [place] [address] bedtime. Medical Branch dicyclomine 2020-02 Yes 20mg Take 20 mg [facility] 20 mg 02 by mouth 3 ity of tablet 03:45: (three) [place] 04 times Medical daily. Branch famotidine 2020-02 Yes 40mg Take 40 mg U nivers 40 mg 02 by mouth ity of tablet 03:45: at [place] [address] bedtime. Medical Branch diphenoxyla 2020-02 Yes 1{tbl} Take 1 Un matt te-atropine 1-02 tablet by ity of (LOMOTIL) 03:45: mouth as [place] 2.5-0.025 04 needed. Medical mg tablet Branch furosemide 2020-02 Yes [id number] 20mg Take 1 U nivers 20 mg 1-01 tablet by ity of tablet 00:00: mouth [place] 00 every Medical Sunday, Branch Sunday and Sunday. furosemide 2020-02 Yes [id number] 20mg Take 1 U nivers 20 mg 1-01 tablet by ity of tablet 00:00: mouth [place] 00 every Medical Sunday, Branch Sunday and Sunday. furosemide 2020-02 Yes [id number] 20mg Take 1 U nivers 20 mg 1-01 tablet by ity of tablet 00:00: mouth [place] 00 every Medical Sunday, Branch Sunday and Sunday. furosemide 2020-02 Yes [id number] 20mg Take 1 U nivers 20 mg 1-01 tablet by ity of tablet 00:00: mouth [place] 00 every Medical Sunday, Branch Sunday and Sunday. furosemide 2020-02 Yes [id number] 20mg Take 1 U nivers 20 mg 1-01 tablet by ity of tablet 00:00: mouth [place] 00 every Medical Sunday, Branch Sunday and Sunday. furosemide 2020-02 Yes [id number] 20mg Take 1 U nivers 20 mg 1-01 tablet by ity of tablet 00:00: mouth [place] 00 every Medical Sunday, Branch Sunday and Sunday. furosemide 2020-02 Yes [id number] 20mg Take 1 U nivers 20 mg 1-01 tablet by ity of tablet 00:00: mouth [place] 00 every Medical Sunday, Branch Sunday and Sunday. furosemide 2020-02 Yes [id number] 20mg Take 1 U nivers 20 mg 1-01 tablet by ity of tablet 00:00: mouth [place] 00 every Medical Sunday, Branch Sunday and Sunday. furosemide 2020-02 Yes [id number] 20mg Take 1 U nivers 20 mg 1-01 tablet by ity of tablet 00:00: mouth [place] 00 every Medical Sunday, Branch Sunday and Sunday. furosemide 2020-02 Yes [id number] 20mg Take 1 U nivers 20 mg 1-01 tablet by ity of tablet 00:00: mouth [place] 00 every Medical Sunday, Branch Sunday and Sunday. furosemide 2020-02 Yes [id number] 20mg Take 1 U nivers 20 mg 1-01 tablet by ity of tablet 00:00: mouth [place] 00 every Medical Sunday, Branch Sunday and Sunday. furosemide 2020-02 Yes [id number] 20mg Take 1 U nivers 20 mg 1-01 tablet by ity of tablet 00:00: mouth [place] 00 every Medical Sunday, Branch Sunday and Sunday. furosemide 2020-02 Yes [id number] 20mg Take 1 U nivers 20 mg 1-01 tablet by ity of tablet 00:00: mouth [place] 00 every Medical Sunday, Branch Sunday and Sunday. furosemide 2020-02 Yes [id number] 20mg Take 1 U nivers 20 mg 1-01 tablet by ity of tablet 00:00: mouth [place] 00 every Medical Sunday, Branch Sunday and Sunday. furosemide 2020-02 Yes [id number] 20mg Take 1 U nivers 20 mg 1-01 tablet by ity of tablet 00:00: mouth [place] 00 every Medical Sunday, Branch Sunday and Sunday. furosemide 2020-02 Yes [id number] 20mg Take 1 U nivers 20 mg 1-01 tablet by ity of tablet 00:00: mouth [place] 00 every Medical Sunday, Branch Sunday and Sunday. metoprolol 2020-02 Yes 25mg Take 25 mg U nivers succinate 0-31 by mouth ity of (TOPROL XL 16:03: daily. [place] ORAL) Medical Branch inFLIXimab 2020-02 Yes 840mg Inject 840 Univers (REMICADE) 0-31 mg ity of 100 mg 16:03: intravenou [place] injection 38 sly every Medic al 6 (six) Branch weeks. predniSONE 2020-02 Yes 20mg Take 20 mg U nivers 10 mg 0-31 by mouth ity of tablet 16:03: daily. [address] Branch Hydrocodone 2020-02 Yes 1{tbl} Take 1 Un matt -Acetaminop 0-31 tablet by ity of hen 7.5-300 16:03: mouth 3 [place] as mg tablet 38 (three) Medical times [place] daily. tiZANidine 2020-02 Yes 4mg Take 4 mg Un matt 4 mg tablet 0-31 by mouth 3 it y of 16:03: (three) [place] [address] times [facility] daily. Branch foLIC acid 2020-02 Yes 3mg Take 3 mg Un matt 1 mg tablet 0-31 by mouth ity of 16:03: daily. [address] Branch methocarbam 2020-02 Yes 500mg Take 500 U nivers oL 500 mg 0-31 mg by ity of tablet 16:03: mouth at [place] [address] bedtime. Medical Branch dicyclomine 2020-02 Yes 20mg Take 20 mg [facility] 20 mg 0-31 by mouth 3 ity of tablet 16:03: (three) [place] [address] times [facility] daily. Branch famotidine 2020-02 Yes 40mg Take 40 mg U nivers 40 mg 0-31 by mouth ity of tablet 16:03: at [place] [address] bedtime. Medical Branch albuterol 2020-02 Yes 2{puff} [...] (TOPROL XL 16:03: daily. [place] ORAL) 38 [facility] inFLIXimab 2020-02 Yes 840mg Inject 840 [facility] (REMICADE) 0-31 mg ity of 100 mg 16:03: intravenou [place] injection 38 sly every Medic al 6 (six) Branch weeks. metoprolol 2020-02 Yes 25mg Take 25 mg U nivers succinate 0-31 by mouth ity of (TOPROL XL 16:03: daily. [place] ORAL) 38 [facility] inFLIXimab 2020-02 Yes 840mg Inject 840 Univers (REMICADE) 0-31 mg ity of 100 mg 16:03: intravenou [place] injection 38 sly every Medic al 6 (six) Branch weeks. metoprolol 2020-02 Yes 25mg Take 25 mg U nivers succinate 0-31 by mouth ity of (TOPROL XL 16:03: daily. [place] ORAL) [address] [place] [address] inFLIXimab 2020-02 Yes 840mg Inject 840 Univers (REMICADE) 0-31 mg ity of 100 mg 16:03: intravenou [place] injection 38 sly every Medic al 6 (six) Branch weeks. metoprolol 2020-02 Yes 25mg Take 25 mg U nivers succinate 0-31 by mouth ity of (TOPROL XL 16:03: daily. [place] ORAL) [address] [place] [address] inFLIXimab 2020-02 Yes 840mg Inject 840 Univers (REMICADE) 0-31 mg ity of 100 mg 16:03: intravenou [place] injection 38 sly every Medic al 6 (six) Branch weeks. metoprolol 2020-02 Yes 25mg Take 25 mg U nivers succinate 0-31 by mouth ity of (TOPROL XL 16:03: daily. [place] ORAL) [address] [place] [address] inFLIXimab 2020-02 Yes 840mg Inject 840 Univers [...] Medic al 6 (six) Branch weeks. benzonatate 2020-02 200mg Take 200 Univers 200 mg 0-31 10-31 mg by ity of capsule 11:53: 00:00 mouth 3 [place] 46 :00 (three) Medical times Branch daily as needed for Cough. METHOTREXAT 2020-02- No .6mg inject 0.6 Univers E, PF, SC 0-31 10-31 mg under ity o f 11:53: 00:00 the skin [place] 46 :00 weekly. Medical Branch NaCl 0.9% 2020-02- No [id number] 1000mg Infuse Univers (NS) PgBk 0- 11-11 1,000 mg ity o f 50 mL with 00:00: 05:59 every 12 [place] ceFEPIme 1 00 :00 (twelve) Medic al gram SolR hours for Branc h 1,000 mg 10 days. vancomycin/ 2020-02- No [id number] 1500mg 1,500 mg Univers 0.9 % sod 0 1111 by IV ity of chloride 00:00: 05:59 Infusion [place] (VANCOMYCIN 00 :00 route Medical 1500 MG IN every 24 Branc h NS 500 ML) (twenty-fo 1.5 ur) hours gram/500 mL for 10 Soln days. NaCl 0.9% 2020-02- No [id number] 1000mg Infuse Univers (NS) PgBk 0 11-11 1,000 mg ity o f 50 mL with 00:00: 05:59 every 12 [place] ceFEPIme 1 00 :00 (twelve) Medic al gram SolR hours for Branc h 1,000 mg 10 days. vancomycin/ 2020-02- No [id number] 1500mg 1,500 mg Univers 0.9 % sod 0 1111 by IV ity of chloride 00:00: 05:59 [...] No 40meq 40 mEq, Univers (KLOR-CON 0- 10-30 Oral, ity of M20) tablet 23:30: 01:25 ONCE, 1 [place] 40 mEq 00 :00 dose, On [facility] Fri Branch 12/10/20 at 1830, Routine tolvaptan 2020-02 No 15mg 15 mg, Unive rs (SAMSCA) 0 10-30 Oral, ONCE ity of tablet 15 23:30: 01:25 NOW, 1 [place] mg 00 :00 dose, On [facility] Branch 12/10/20 at 1830, Routine
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
Reas on for Anti-Infec tive: Documented Infection< br>Documen karly Infection Site: Skin / Soft Tissue
Duration of Therapy: Other (see Comments) potassium 2020-02 No 30mmol 30 mmol, U nivers phosphate 0- 10-29 IV ity of 30 mmol in 13:15: 14:16 Piggyback, [place] NaCl 0.9% 00 :00 ONCE, 1 [...] 2020-02 No 40meq 40 mEq, Univers (KLOR-CON 0-12-10 Oral, Q4H, ity of M20) tablet 13:00: 17:44 2 doses, [place] 40 mEq 00 :00 First dose Medical (after Branch last reorder) on Sun12/10/20 at 0800, Last dose on Sun12/10/20 at 1200, Routine aMILoride 2020-02- No 10mg 10 mg, Unive rs (MIDAMOR) 0 10-30 Oral, BID, ity of tablet 10 01:00: 15:49 First dose [place] mg 00 :55 on [facility] 12/09/20 Branch at 2000, Until Discontinu ed, Routine potassium 2020-02 No 15mmol 15 mmol, U nivers phosphate 0- 10-28 IV ity of 15 mmol in 15:45: 16:34 Piggyback, [place] NaCl 0.9% 00 :00 ONCE, 1 Medical (NS) 150 mL dose, On Bran ch piggyback [facility] 12/09/20 at 1045, 150 mL predniSONE 2020-02 Yes 30mg 30 mg, Unive rs (DELTASONE) 0-28 Oral, ity of tablet 30 15:00: DAILY, [place] mg 00 First dose Medical on [facility] 12/09/20 at 1000, Until Discontinu ed, Routine calcitrioL 2020-02 Yes .5ug 0.5 mcg, Uni vers (ROCALTROL) 0-28 Oral, ity of capsule 0.5 15:00: DAILY, [place] mcg 00 First dose Medical on [facility] Branch 12/09/20 at 1000, Until Discontinu ed, Routine KCL 2020-02 No 40meq 40 mEq, Univers (KLOR-CON 0-09 12-28 Oral, Q4H, ity of M20) tablet 15:00: 16:35 2 doses, [place] 40 mEq 00 :00 First dose Medical (after Branch last modificati on) on [facility] 12/09/20 at 1000, Last dose on [place] 12/09/20 at 1200, Routine hydrocortis 2020-02- No 60mg 60 mg, IV Univers one sod 0-09 12- Piggyback, ity o f succ 13:43: 14:47 DAILY, [place] ([facility]) 60 13 :30 First dose Me dical mg in NaCl (after Branch 0.9% (NS) last piggyback modificati on) on [facility] 12/09/20 at 0900, Until Discontinu ed, Administer over 30 Minutes, 60 mL iopamidol 2020-02 No [id number] 120mL 120 mL, Univers (ISOVUE 0-08 12- Intravenou ity o f 370-500 mL) 17:23: 17:24 s, ONCE, 1 [place] injection 00 :00 dose, On Medica l 120 mL Sun [place] 12/08/20 at 1245, Routine KCL 2020-02 No 20meq 20 mEq, Univers (KLOR-CON 012-09 Oral, ity of M20) tablet 14:00: 14:47 DAILY, [place] 20 mEq 00 :30 First dose Medical on Sun [place] 12/08/20 at 0900, Until Discontinu ed, Routine hydrocortis 2020-02 No 60mg 60 mg, IV Univers one sod 012-09 Piggyback, ity o f succ 01:00: 13:43 Q12H, [place] ([facility]) 60 00 :20 First dose Me dical mg in NaCl (after Branch 0.9% (NS) last piggyback modificati on) on Sun12/07/20 at 2000, Until Discontinu ed, Administer over 30 Minutes, 60 mL lidocaine 2020-02 Yes 5mL 5 mL, Univers 1% (PF) 0 Subcutaneo ity of (XYLOCAINE) 18:44: us, PRN, [place] injection 5 15 Starting Medi bernadine mL on Sun12/07/20 at 1344, Until Discontinu ed, Routine, Local anesthesia NaCl 0.9% 2020-02 Yes 10mL 10 mL, Univer s (NS) 0-26 Slow IV ity of injection 17:49: Push, PRN, [place] 10 mL 04 Starting Medical on Sun [place] 12/07/20 at 1249, Until Discontinu ed, Routine, line maintenanc e KCL 2020-02- No 20meq 20 mEq, Univers (KLOR-CON 0-26 10- Oral, ity of M20) tablet 14:45: 13:52 ONCE, 1 [place] 20 mEq 00 :00 dose, On Medical Tu Branch 12/07/20 at 0945, Routine diphenoxyla 2020-02 Yes 2{tbl} 2 tablet, Univers te-atropine 0-26 Oral, TID, it y of (LOMOTIL) 13:00: First dose [place] 2.5-0.025 00 (after Medical mg tablet 2 last Branch tablet modificati on) on Sun12/07/20 at 0800, Until Discontinu ed, Routine diphenoxyla 2020-02- No 1{tbl} 1 tablet, Univers te-atropine 0-26 - Oral, ity of (LOMOTIL) 04:15: 03:27 ONCE, 1 [place] 2.5-0.025 00 :00 dose, On Medica l mg tablet 1 Sun Branch tablet 12/06/20 at 2315, Routine famotidine 2020-02 Yes 40mg 40 mg, Unive rs (PEPCID AC) 0-26 Oral, QHS, it y of tablet 40 02:00: First dose [place] mg 00 on [facility] 12/06/20 Branch at 2100, Until Discontinu ed, Routine Nitrofurant 2020-02- No 100mg 100 mg, U nivers oin&Nit. 0-12-10 Oral, BID, ity of Macrocryst 01:00: 16:54 First dose [place] (MACROBID) 00 :09 on [facility] Medical 100 mg 12/06/20 Branch capsule 100 at 2000, mg Until Discontinu ed, Routine
Reason for Anti-Infec tive: Documented Infection< br>Documen karly Infection Site: Urine
D uration of Therapy: 7 days lactobacill 2020-02 Yes .5mg 0.5 mg, Uni vers us 0-25 Oral, TID, ity of acidophilus 19:00: First dose [place] tablet 0.5 00 on [facility] Medical mg 12/06/20 Branch at 1400, Until Discontinu ed, Routine diphenoxyla 2020-02- No 1{tbl} 1 tablet, Univers te-atropine 0-25 -26 Oral, TID, i ty of (LOMOTIL) 19:00: 02:34 First dose [place] 2.5-0.025 00 :00 (after Medical mg tablet 1 last Branch tablet modificati on) on Sun12/06/20 at 1400, Until Discontinu ed, Routine vancomycin 2020-02- No 15mg/kg 1,250 mg Univers 1250 mg in 12-09 (rounded ity of NS 250 mL 18:30: 23:35 from 305 [place] RTU IV 00 :38 mg = 15 Medical [place] mg/kg ?87 Branc h 1,250 mg kg), IV [place]gy[place], Q12H ABX, First dose (after last modificati on) on Sun12/06/20 at 1330, Until Discontinu ed, Administer over 90 Minutes
Reason for Anti-Infec tive: Empiric Therapy for Suspected Infection< br>Empiric Therapy Site: Blood
D uration of therapy: 7 days metoprolol 2020-02 Yes 25mg 25 mg, Unive rs succinate 0-25 Oral, ity of XL (TOPROL 14:00: DAILY, [place] XL) tablet 00 First dose Med ical 25 mg on [facility] 12/06/20 at 0900, Until Discontinu ed foLIC acid 2020-02 Yes 3mg 3 mg, Univer s (FOLATE) 0-25 Oral, ity of tablet 3 mg 14:00: DAILY, [place] 00 First dose Medical on [facility] 12/06/20 at 0900, Until Discontinu ed, Routine diphenoxyla 2020-02- No 1{tbl} 1 tablet, Univers te-atropine 0-25 10- Oral, ity of (LOMOTIL) 14:00: 17:51 DAILY, [place] 2.5-0.025 00 :45 First dose Medi bernadine mg tablet 1 on [facility] tablet 12/06/20 at 0900, Until Discontinu ed, Routine gabapentin 2020-02 Yes 600mg 600 mg, Uni vers (NEURONTIN) 0-25 Oral, TID, it y of tablet 600 13:00: First dose [place] mg 00 on [facility] 12/06/20 Branch at 0800, Until Discontinu ed, Routine hydrocortis 2020-02- No 60mg 60 mg, IV Univers one sod 0-25 12-07 Piggyback, ity o f succ 11:00: 22:27 Q8H, First [place] (CORTEF) 60 00 :12 dose on Medic al mg in NaCl [facility] Branch 0.9% (NS) 12/06/20 piggyback at 0600, Until Discontinu ed, Administer over 30 Minutes, 60 mL HYDROcodone 2020-02 Yes 1{tbl} 1 tablet, Univers -acetaminop 0-25 Oral, ity of hen (NORCO) 09:21: Q6HPRN, [place] 10-325 mg 08 Starting Medica l tablet 1 on Mon Branch tablet 12/06/20 at 0421, Until Discontinu ed, Routine, Pain (scale 7-10) alum-mag 2020-02 Yes 30mL 30 mL, Univers hydroxide-s 0-25 Oral, ity of imeth 09:20: Q6HPRN, [place] (MAALOX 42 Starting Medical PLUS / [...] IV Piggyback, Q12H ABX, First dose on [place] 12/05/20 at 2330, Until Discontinu ed, Administer over 90 Minutes
Reason for Anti-Infec tive: Empiric Therapy for Suspected Infection< br>Empiric Therapy Site: Blood
D uration of therapy: 7 days heparin 2020-02 Yes 5000U 5,000 Univers (porcine) 0-25 Units, ity of injection 03:00: Subcutaneo [place] 5,000 Units 00 us, Q8H, Medi bernadine First dose Branch on [place] 12/05/20 at 2200, Until Discontinu ed, Routine busPIRone 2020-02 Yes 20mg 20 mg, Univer s (BUSPAR) 0-25 Oral, TID, ity o f tablet 20 02:30: First dose [place] mg 00 (after Medical last Branch modificati on) on [place] 12/05/20 at 2130, Until Discontinu ed, Routine morpHINE 2020-02- No 2mg 2 mg, Slow Un matt injection 2 0-25 10-25 IV Push, ity of mg 02:26: 09:22 Q4HPRN, [place] 54 :17 Starting Medical on Sun Branch [...] QHSPRN, [place] 44 Starting Medical on [place] Branch 12/05/20 at 2120, Until Discontinu ed, Routine, Anxiety, Agitation, insomnia HYDROcodone 2020-02- No 7.5mg 7.5 mg, U nivers -acetaminop 0-25 10-25 Oral, ity of hen (HYCET) 02:21: 09:22 Q6HPRN, [place] 7.5-325 29 :17 Starting Medical mg/15 mL on [place] Branch solution 12/05/20 7.5 mg at 2120, [...] Medical RTU 10 mEq First dose Bra [facility] on Sun12/05/20 at 2100, Last dose on 12/06/20 at 0000, Administer over 60 Minutes, 100 mL magnesium 2020-02- No 2g 2 g, IV Univ ers sulfate in 0-25 10-25 Piggyback, it y of water 2 02:00: 04:57 Q1H, 2 [place] gram/50 mL 00 :00 doses, Medical (4 %) First dose Branch infusion 2 on Sun g 12/05/20 at 2100, Last dose on Sun12/05/20 at 2200, Routine calcium 2020-02- No 2g 2 g, IV Univer s gluconate 2 0-25 10-25 Infusion, it y of g in NaCl 01:15: 01:32 ONCE, 1 [place] 100 mL 00 :00 dose, On Medical (ISO-OSM) [facility] RTU IV 12/05/20 infusion 2 at 2014, g Routine potassium 2020-02 No 10meq 10 mEq, IV Univers chloride in 0-25 10-25 Piggyback, i ty of water 10 01:00: 03:07 Q1H, 4 [place] mEq/100 mL 00 :43 doses, Medical RTU 10 mEq First dose [facility] [address] on Sun12/05/20 at 2000, Last dose on Sun12/05/20 at 2300, Administer over 60 Minutes, 100 mL KCL 2020-02 No 40meq 40 mEq, Univers (KLOR-CON 0-25 10-25 Oral, Q1H, ity of M20) tablet 01:00: 02:59 2 doses, [place] 40 mEq 00 :00 First dose Medical on [place] Branch 12/05/20 at 2000, Last dose on 12/05/20 at 2100, Routine NaCl 0.9% 2020-02- No 1000mL at 150 Uni vers (NS) IV 0-24 10-26 mL/hr, ity of infusion 22:45: 20:37 Intravenou [place] 1,000 mL 00 :12 s, Medical CONTINUOUS Branch , Starting on Sun12/05/20 at 1745, Until Tu12/07/20 at 1537, Routine piperacilli 2020-02- No 3.375g [...] CONTINUOUS Medic al , Starting Branch on [place] 12/05/20 at 1630, Until [place] 12/05/20 at 1900, Routine NaCl 0.9% 2020-02- No 1000mL at 999 Uni vers (NS) bolus 0-24 10-24 mL/hr, ity of infusion 21:30: 21:43 1,000 mL, [place] 1,000 mL 00 :00 IV Medical Infusion, Branch ONCE, 1 dose, On [place] 12/05/20 at 1630, STAT ondansetron 2020-02 Yes 4mg 4 mg, Slow Univers (ZOFRAN 0-24 IV Push, ity of (PF)) 21:29: Q6HPRN, [place] injection 4 30 Starting Medi bernadine mg on [place] Branch 12/05/20 at 1629, Until Discontinu ed, Routine, Nausea and Vomiting (N/V) acetaminoph 2020-02 Yes 650mg 650 mg, Un matt en 0-24 Oral, ity of (TYLENOL) 21:29: Q6HPRN, [place] tablet 650 19 Starting Medic al mg on [place] Branch 12/05/20 at 1629, Until Discontinu ed, Routine, Pain (scale 1-3), Temp > 38.5 C dicyclomine 2020-02- No 20mg Take 20 mg Univers 20 mg 0-24 10-24 by mouth 3 ity of tablet 21:23: 00:00 (three) [place] 29 :00 times Medical daily. Branch erenumab-ao 2020-02 No inject Uni vers oe (AIMOVIG 0-24 10-24 under the it y of AUTOINJECTO 21:23: 00:00 skin. [place] R) 140 29 :00 Medical mg/mL AtIn Branch hydrocortis 2020-02 No 100mg 100 mg, IV Univers one [...] 2 [place] 00 :00 (two) Medical times [place] daily. sulfamethox 2020-02- No 1{tbl} Take 1 U nivers azole-trime 0-20 10-31 tablet by it y of thoprim 00:00: 00:00 mouth 2 [place] 400-80 mg 00 :00 (two) Medical per tablet times [place] daily. AIMOVIG Yes 140mg INJECT 140 Uni [...] EVERY Medical MONTH. Branch AIMOVIG 2020-0 Yes 140mg INJECT 140 Uni vers AUTOINJECTO 8-31 MG UNDER ity of R 140 mg/mL 00:00: THE SKIN [place] AtIn 00 ONCE EVERY Medical MONTH. Branch AIMOVIG 2020-0 Yes 140mg INJECT 140 Uni vers AUTOINJECTO 8-31 MG UNDER ity of R 140 mg/mL 00:00: THE SKIN [place] AtIn 00 ONCE EVERY Medical MONTH. Branch AIMOVIG 2020-0 Yes 140mg INJECT 140 Uni vers AUTOINJECTO 8-31 MG UNDER ity of R 140 mg/mL 00:00: THE SKIN [place] AtIn 00 ONCE EVERY Medical MONTH. Branch AIMOVIG 2020-0 Yes 140mg INJECT 140 Uni vers AUTOINJECTO 8-31 MG UNDER ity of R 140 mg/mL 00:00: THE SKIN [place] AtIn 00 ONCE EVERY Medical MONTH. Branch AIMOVIG 2020-0 Yes 140mg INJECT 140 Uni vers AUTOINJECTO [...] EVERY Medical MONTH. Branch AIMOVIG 2020-0 Yes 140mg INJECT 140 Uni vers AUTOINJECTO 8-31 MG UNDER ity of R 140 mg/mL 00:00: THE SKIN [place] AtIn 00 ONCE EVERY Medical MONTH. Branch AIMOVIG 2020-0 Yes 140mg INJECT 140 Uni vers AUTOINJECTO 8-31 MG UNDER ity of R 140 mg/mL 00:00: THE SKIN [place] AtIn 00 ONCE EVERY Medical MONTH. Branch AIMOVIG 2020-0 Yes 140mg INJECT 140 Uni vers AUTOINJECTO 8-31 MG UNDER ity of R 140 mg/mL 00:00: THE SKIN [place] AtIn 00 ONCE EVERY Medical MONTH. Branch AIMOVIG 2020-0 Yes 140mg INJECT 140 Uni vers AUTOINJECTO 8-31 MG UNDER ity of R 140 mg/mL 00:00: THE SKIN [place] AtIn 00 ONCE EVERY Medical MONTH. [place] AIMOVIG 2020-0 Yes 140mg INJECT 140 Uni vers AUTOINJECTO 8-31 MG UNDER ity of R 140 mg/mL 00:00: THE SKIN [place] AtIn 00 ONCE EVERY Medical MONTH. [place] AIMOVIG 2020-0 Yes 140mg INJECT 140 Uni vers AUTOINJECTO 8-31 MG UNDER ity of R 140 mg/mL 00:00: THE SKIN [place] AtIn 00 ONCE EVERY Medical MONTH. [place] AIMOVIG 0 Yes 140mg INJECT 140 Uni vers AUTOINJECTO 8-31 MG UNDER ity of R 140 mg/mL 00:00: THE SKIN [place] AtIn 00 ONCE EVERY Medical MONTH. [place] AIMOVIG 2020-0 Yes 140mg INJECT 140 Uni vers AUTOINJECTO 8-31 MG UNDER ity of R 140 mg/mL 00:00: THE SKIN [place] AtIn 00 ONCE EVERY Medical MONTH. [place] AIMOVIG 0 Yes 140mg INJECT 140 Uni vers AUTOINJECTO 8-31 MG UNDER ity of R 140 mg/mL 00:00: THE SKIN [place] AtIn 00 ONCE EVERY Medical MONTH. [place] magnesium Yes 400mg 400 mg, Univ ers oxide 6-03 Oral, ity of (MAG-OX 14:00: DAILY, [place] 400) tablet 00 First dose Me dical 400 mg on [place] 07/15/20 at 0900, Until Discontinu ed, Routine busPIRone Yes 20mg 20 mg, Univer s (BUSPAR) 6-03 Oral, BID, ity o f tablet 20 01:00: First dose [place] mg 00 on [facility] 07/14/20 at [place] 1999, Until Discontinu ed, Routine magnesium 2020-0 Yes [id number] 400mg Take 400 Univers oxide 420 6-03 mg by ity of mg Tab 00:00: mouth [place] 00 daily. [facility] magnesium 0 Yes [id number] 400mg Take 400 Univers oxide 420 6-03 mg by ity of mg Tab 00:00: mouth [place] 00 daily. [facility] magnesium 2020-0 Yes [id number] 400mg Take 400 Univers oxide 420 6-03 mg by ity of mg Tab 00:00: mouth [place] 00 daily. Medical Branch magnesium 2020-0 Yes [id number] 400mg Take 400 Univers oxide 420 6-03 mg by ity of mg Tab 00:00: mouth [place] 00 daily. Medical Branch magnesium 2020-0 Yes [id number] 400mg Take 400 Univers oxide 420 6-03 mg by ity of mg Tab 00:00: mouth [place] 00 daily. Medical Branch magnesium 2020-0 Yes [id number] 400mg Take 400 Univers oxide 420 6-03 mg by ity of mg Tab 00:00: mouth [place] 00 daily. Medical Branch magnesium 2020-0 Yes [id number] 400mg Take 400 Univers oxide 420 6-03 mg by ity of mg Tab 00:00: mouth [place] 00 daily. Medical Branch magnesium 2020-0 Yes [id number] 400mg Take 400 Univers oxide 420 6-03 mg by ity of mg Tab 00:00: mouth [place] 00 daily. Medical Branch magnesium 2020-0 Yes [id number] 400mg Take 400 Univers oxide 420 6-03 mg by ity of mg Tab 00:00: mouth [place] 00 daily. Medical Branch magnesium 2020-0 Yes [id number] 400mg Take 400 Univers oxide 420 6-03 mg by ity of mg Tab 00:00: mouth [place] 00 daily. Medical Branch magnesium 2020-0 Yes [id number] 400mg Take 400 Univers oxide 420 6-03 mg by ity of mg Tab 00:00: mouth [place] 00 daily. Medical Branch magnesium 2020-0 Yes [id number] 400mg Take 400 Univers oxide 420 6-03 mg by ity of mg Tab 00:00: mouth [place] 00 daily. Medical Branch magnesium 2020-0 Yes [id number] 400mg Take 400 Univers oxide 420 6-03 mg by ity of mg Tab 00:00: mouth [place] 00 daily. Medical Branch magnesium 2020-0 Yes [id number] 400mg Take 400 Univers oxide 420 6-03 mg by ity of mg Tab 00:00: mouth [place] 00 daily. Medical Branch magnesium 2020-0 1- No [id number] 400mg Take 400 Univers oxide 420 6-03 [...] 25mg Take 25 mg U nivers succinate 07-14 by mouth ity of (TOPROL XL 18:15: daily. [place] ORAL) 16 Medical Branch inFLIXimab Yes 840mg Inject 840 Univers (REMICADE) 02 mg ity of 100 mg 18:15: intravenou [place] injection 16 sly every Medic al 14 Branch (fourteen) days. dicyclomine Yes 20mg Take 20 mg Univers 20 mg 07-14 by mouth 3 ity of tablet 18:15: [...] Last dose on Sun07/15/20 at 0600, Routine
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
restaurant crew member approving Restricted medication : JEANETTEMATHEUS CHRISTINA magnesium 2020- No 2g 2 g, IV Univ ers sulfate in 07-14 Piggyback, it y of water 2 11:15: 15:20 ONCE, 1 [place] gram/50 mL 00 :00 dose, Sun Medi bernadine (4 %) 07/14/20 at Branch infusion 2 0615, g Routine NaCl 0.9% Yes 1000mL at 50 Unive rs (NS) IV 02 mL/hr, IV ity of infusion 10:15: Infusion, [place] 1,000 mL 00 CONTINUOUS Medic al , Starting Branch [facility] 07/14/20 at 0515, Until Discontinu ed, Routine acetaminoph Yes 650mg 650 mg, Un matt en 07-14 Oral, ity of (TYLENOL) 10:11: Q6HPRN, [place] tablet 650 51 Starting Medic al mg [facility] 07/14/20 Branch at 0511, Until Discontinu ed, Routine, Pain (scale 4-6) docusate Yes 100mg 100 mg, Unive rs (COLACE) 07-14 Oral, ity of capsule 100 10:11: QDAILYPRN, [place] mg 50 Starting Medical [facility] 07/14/20 Branch at 0511, Until Discontinu ed, Routine, Constipati on diphenhydrA 2020- No 25mg 25 mg, Uni vers MINE 07-14 Slow IV ity of (BENADRYL) 01:00: 09:39 Push, [place] injection 00 :00 ONCE, 1 Medical 25 mg dose, Tue Branch 07/13/20 at 2000, STAT metoclopram 2020- No 10mg 10 mg, Uni vers marilyn HCl 07-14 Slow IV ity of (REGLAN) 01:00: 09:39 Push, [place] injection 00 :00 ONCE, 1 Medical 10 mg dose, Tue Branch 07/13/20 at 1999, GIGI amitriptyli Yes [id number] 25mg Take 1 Univers ne 25 mg 6-02 tablet by ity of tablet 00:00: mouth at [place] [address] bedtime. Medical Branch riboflavin, Yes [id number] 400mg Take 400 Univers vitamin B2, 6-02 mg by ity of 400 mg Tab 00:00: mouth [place] 00 daily. Medical Branch amitriptyli Yes [id number] 25mg Take 1 Univers ne 25 mg 6-02 tablet by ity of tablet 00:00: mouth at [place] [address] bedtime. Medical Branch riboflavin, Yes [id number] 400mg Take 400 Univers vitamin B2, 6-02 mg by ity of 400 mg Tab 00:00: mouth [place] 00 daily. Medical Branch amitriptyli Yes [id number] 25mg Take 1 Univers ne 25 mg 6-02 tablet by ity of tablet 00:00: mouth at [place] [address] bedtime. Medical Branch riboflavin, Yes [id number] 400mg Take 400 Univers vitamin B2, 6-02 mg by ity of 400 mg Tab 00:00: mouth [place] 00 daily. Medical Branch amitriptyli Yes [id number] 25mg Take 1 Univers ne 25 mg 6-02 tablet by ity of tablet 00:00: mouth at [place] [address] bedtime. Medical Branch riboflavin, Yes [id number] 400mg Take 400 Univers vitamin B2, 6-02 mg by ity of 400 mg Tab 00:00: mouth [place] 00 daily. Medical Branch amitriptyli Yes [id number] 25mg Take 1 Univers ne 25 mg 6-02 tablet by ity of tablet 00:00: mouth at [place] [address] bedtime. Medical Branch riboflavin, Yes [id number] 400mg Take 400 Univers vitamin B2, 6-02 mg by ity of 400 mg Tab 00:00: mouth [place] 00 daily. Medical Branch amitriptyli Yes [id number] 25mg Take 1 Univers ne 25 mg 6-02 tablet by ity of tablet 00:00: mouth at [place] [address] bedtime. Medical Branch riboflavin, Yes [id number] 400mg Take 400 Univers vitamin B2, 6-02 mg by ity of 400 mg Tab 00:00: mouth [place] 00 daily. Medical Branch amitriptyli Yes [id number] 25mg Take 1 Univers ne 25 mg 6-02 tablet by ity of tablet 00:00: mouth at [place] bedtime. Medical Branch riboflavin, Yes [id number] 400mg Take 400 Univers vitamin B2, 6-02 mg by ity of 400 mg Tab 00:00: mouth [place] 00 daily. Medical Branch amitriptyli Yes [id number] 25mg Take 1 Univers ne 25 mg 6-02 tablet by ity of tablet 00:00: mouth at [place] bedtime. Medical Branch riboflavin, Yes [id number] 400mg Take 400 Univers vitamin B2, 6-02 mg by ity of 400 mg Tab 00:00: mouth 00 daily. Medical Branch amitriptyli Yes [id number] 25mg Take 1 Univers ne 25 mg 6-02 tablet by ity of tablet 00:00: mouth at [place] bedtime. Medical Branch riboflavin, Yes [id number] 400mg Take 400 Univers vitamin B2, 6-02 mg by ity of 400 mg Tab 00:00: mouth daily. Medical Branch amitriptyli Yes [id number] 25mg Take 1 Univers ne 25 mg 6-02 tablet by ity of tablet 00:00: mouth at [place] bedtime. Medical Branch riboflavin, Yes [id number] 400mg Take 400 Univers vitamin B2, 6-02 mg by ity of 400 mg Tab 00:00: mouth daily. Medical Branch amitriptyli Yes [id number] 25mg Take 1 Univers ne 25 mg 6-02 tablet by ity of tablet 00:00: mouth at [place] bedtime. Medical Branch riboflavin, Yes [id number] 400mg Take 400 Univers vitamin B2, 6-02 mg by ity of 400 mg Tab 00:00: mouth 00 daily. Medical Branch amitriptyli Yes [id number] 25mg Take 1 Univers ne 25 mg 6-02 tablet by ity of tablet 00:00: mouth at [place] bedtime. Medical Branch riboflavin, Yes [id number] 400mg Take 400 [facility] vitamin B2, 6-02 mg by ity of 400 mg Tab 00:00: mouth [place] 00 daily. Medical Branch amitriptyli Yes [id number] 25mg Take 1 [facility] ne 25 mg 6-02 tablet by ity of tablet 00:00: mouth at [place] 00 bedtime. Medical Branch riboflavin, Yes [id number] 400mg Take 400 [facility] vitamin B2, 6-02 mg by ity of 400 mg Tab 00:00: mouth [place] 00 daily. Medical Branch amitriptyli Yes [id number] 25mg Take 1 [facility] ne 25 mg 6-02 tablet by ity of tablet 00:00: mouth at [place] 00 bedtime. Medical Branch riboflavin, Yes [id number] 400mg Take 400 [facility] vitamin B2, 6-02 mg by ity of 400 mg Tab 00:00: mouth [place] 00 daily. Medical Branch amitriptyli 2020- No [id number] 25mg Take 1 [facility] ne 25 mg 6-02 10-24 tablet by ity o f tablet 00:00: 00:00 mouth at [place] 00 :00 bedtime. Medical Branch riboflavin, 2020- No [id number] 400mg Take 400 [facility] vitamin B2, 6-02 [...] No 4mg 4 mg, Slow Univers (ZOFRAN 07-07- IV Push, ity of (PF)) 04:15: 03:20 ONCE, 1 [place] injection 4 00 :00 dose, Tue Med ical mg 07/06/20 at Branch 2315, GIGI morpHINE 2020- No 4mg 4 mg, Slow Un matt injection 4 07-07- IV Push, ity of mg 04:15: 03:20 ONCE, 1 [place] 00 :00 dose, Tue Medical 07/06/20 at Branch 2315, STAT LORazepam 2020-2020- No 2mg 2 mg, Univer s (ATIVAN) 07-07 Intramuscu ity of injection 2 03:30: 02:26 lar, ONCE, [place] mg 00 :00 1 dose, Medical [facility] 07/06/20 at 2230, STAT cloNIDine 2020-0 2020- No .2mg 0.2 mg, Univ ers (CATAPRES) 07-07 Oral, ity of tablet 0.2 03:00: 01:58 ONCE, 1 [place] mg 00 :00 dose, [facility] 07/06/20 at Branch 2200, STAT ondansetron 2020- No 4mg 4 mg, Univ ers (ZOFRAN-ODT 07-07 Oral, ity of ) 02:00: 01:10 ONCE, 1 [place] disintegrat 00 :00 dose, [facility] Med ical ing tablet 07/06/20 at [facility] [address] 4 mg 2100, Routine butorphanol 2020- No 2mg 2 mg, Univ ers (STADOL) 07-07 Intramuscu ity of injection 2 02:00: 01:10 lar, ONCE [place] mg 00 :00 NOW, 1 Medical dose, [facility] 07/06/20 at 2100, Routine ondansetron 2020-0 Yes [id number] 4mg Take 1 Univers (ZOFRAN) 4 5-25 tablet by ity of mg tablet 00:00: mouth [place] 00 every 8 Medical (eight) Branch hours as needed for Nausea and Vomiting (N/V). ondansetron 2020-0 Yes [id number] 4mg Take 1 Univers (ZOFRAN) 4 5-25 tablet by ity of mg tablet 00:00: mouth [place] 00 every 8 Medical (eight) Branch hours as needed for Nausea and Vomiting (N/V). ondansetron 2021-0 Yes [id number] 4mg Take 1 Univers (ZOFRAN) 4 5-25 tablet by ity of mg tablet 00:00: mouth [place] 00 every 8 Medical (eight) Branch hours as needed for Nausea and Vomiting (N/V). ondansetron 202-0 Yes [id number] 4mg Take 1 Univers (ZOFRAN) 4 5-25 tablet by ity of mg tablet 00:00: mouth [place] 00 every 8 Medical (eight) Branch hours as needed for Nausea and Vomiting (N/V). ondansetron 2020-0 Yes [id number] 4mg Take 1 Univers (ZOFRAN) 4 5-25 tablet by ity of mg tablet 00:00: mouth [place] 00 every 8 Medical (eight) Branch hours as needed for Nausea and Vomiting (N/V). ondansetron 2020-0 Yes [id number] 4mg Take 1 Univers (ZOFRAN) 4 5-25 tablet by ity of mg tablet 00:00: mouth [place] 00 every 8 Medical (eight) Branch hours as needed for Nausea and Vomiting (N/V). ondansetron 2020-0 Yes [id number] 4mg Take 1 Univers (ZOFRAN) 4 5-25 tablet by ity of mg tablet 00:00: mouth [place] 00 every 8 Medical (eight) Branch hours as needed for Nausea and Vomiting (N/V). ondansetron 2020-0 Yes [id number] 4mg Take 1 Univers (ZOFRAN) 4 5-25 tablet by ity of mg tablet 00:00: mouth [place] 00 every 8 Medical (eight) Branch hours as needed for Nausea and Vomiting (N/V). ondansetron 2020-0 Yes [id number] 4mg Take 1 Univers (ZOFRAN) 4 5-25 tablet by ity of mg tablet 00:00: mouth [place] 00 every 8 Medical (eight) Branch hours as needed for Nausea and Vomiting (N/V). ondansetron 2020-0 Yes [id number] 4mg Take 1 Univers (ZOFRAN) 4 5-25 tablet by ity of mg tablet 00:00: mouth [place] 00 every 8 Medical (eight) Branch hours as needed for Nausea and Vomiting (N/V). ondansetron 1-0 Yes [id number] 4mg Take 1 Univers (ZOFRAN) 4 5-25 tablet by ity of mg tablet 00:00: mouth [place] 00 every 8 Medical (eight) Branch hours as needed for Nausea and Vomiting (N/V). ondansetron 2020-0 Yes [id number] 4mg Take 1 Univers (ZOFRAN) 4 5-25 tablet by ity of mg tablet 00:00: mouth [place] 00 every 8 Medical (eight) Branch hours as needed for Nausea and Vomiting (N/V). ondansetron 2020-0 Yes [id number] 4mg Take 1 Univers (ZOFRAN) 4 5-25 tablet by ity of mg tablet 00:00: mouth [place] 00 every 8 Medical (eight) Branch hours as needed for Nausea and Vomiting (N/V). ondansetron 2020-0 Yes [id number] 4mg Take 1 Univers (ZOFRAN) 4 5-25 tablet by ity of mg tablet 00:00: mouth [place] 00 every 8 Medical (eight) Branch hours as needed for Nausea and Vomiting (N/V). ondansetron 2020-0 Yes [id number] 4mg Take 1 Univers (ZOFRAN) 4 5-25 tablet by ity of mg tablet 00:00: mouth [place] 00 every 8 Medical (eight) Branch hours as needed for Nausea and Vomiting (N/V). ondansetron 2020-0 Yes [id number] 4mg Take 1 Univers (ZOFRAN) 4 5-25 tablet by ity of mg tablet 00:00: mouth [place] 00 every 8 Medical (eight) Branch hours as needed for Nausea and Vomiting (N/V). ondansetron 2020-0 Yes [id number] 4mg Take 1 Univers (ZOFRAN) 4 5-25 tablet by ity of mg tablet 00:00: mouth [place] 00 every 8 Medical (eight) Branch hours as needed for Nausea and Vomiting (N/V). ondansetron 2020-0 Yes [id number] 4mg Take 1 Univers (ZOFRAN) 4 5-25 tablet by ity of mg tablet 00:00: mouth [place] 00 every 8 Medical (eight) Branch hours as needed for Nausea and Vomiting (N/V). ondansetron 2020-0 Yes [id number] 4mg Take 1 Univers (ZOFRAN) 4 5-25 tablet by ity of mg tablet 00:00: mouth [place] 00 every 8 Medical (eight) Branch hours as needed for Nausea and Vomiting (N/V). ondansetron 2020-0 Yes [id number] 4mg Take 1 Univers (ZOFRAN) 4 5-25 tablet by ity of mg tablet 00:00: mouth [place] 00 every 8 Medical (eight) Branch hours as needed for Nausea and Vomiting (N/V). ondansetron Yes [id number] 4mg Take 1 Univers (ZOFRAN) 4 5-25 tablet by ity of mg tablet 00:00: mouth [place] 00 every 8 Medical (eight) Branch hours as needed for Nausea and Vomiting (N/V). ondansetron 2020- No [id number] 4mg Take 1 Univers (ZOFRAN) 4 5-25 [...] [facility] NaCl 0.9% 07/04/20 at [facility] (NS) 50 mL 1615, 50 piggyback mL butorphanol 2020- No 1mg 1 mg, IV U nivers (STADOL) 07-04 Push, ity of injection 1 19:30: 19:00 ONCE, 1 [place] mg 00 :00 dose, [facility] 07/04/20 at Branch 1430, Routine LORazepam No 1mg 1 mg, Slow U nivers (ATIVAN) 07-04 IV Push, ity of injection 1 19:30: 19:00 ONCE, 1 [place] mg 00 :00 dose, [facility] 07/04/20 at Branch 1430, STAT NaCl 0.9% No 1000mL at 999 Uni vers (NS) IV 07-04 mL/hr, IV ity of infusion 19:30: 20:53 Infusion, [place] 1,000 mL 00 :00 ONCE, 1 Medical dose, [facility] 07/04/20 at 1430, Routine dexamethaso No 10mg 10 mg, IV Univers ne 07-04 Push, ity of (DECADRON 19:30: 19:02 ONCE, 1 [place] PHOSPH[place] 00 :00 dose, [facility] bernadine injection 07/04/20 at Bran ch 10 mg 1430, STAT butalbital- 2020- No 2{tbl} 2 tablet, Univers acetaminoph 07-04 Oral, ity of en-caff 19:30: 18:40 ONCE, 1 [place] (ESGIC) 00 :00 dose, [facility] 50-325-40 07/04/20 at Bran ch mg tablet 2 1430, tablet Routine butalbital- Yes [id number] 1{tbl} Take 1 [facility] acetaminoph 5-23 tablet by ity of en-caff 00:00: mouth [place] 50-325-40 00 every 6 Medical mg tablet (six) Branch hours as needed for Pain (scale 7-10). butalbital- Yes [id number] 1{tbl} Take 1 [facility] acetaminoph 5-23 tablet by ity of en-caff 00:00: mouth [place] 50-325-40 00 every 6 Medical mg tablet (six) Branch hours as needed for Pain (scale 7-10). butalbital- Yes [id number] 1{tbl} Take 1 [facility] acetaminoph 5-23 tablet by ity of en-caff 00:00: mouth [place] 50-325-40 00 every 6 Medical mg tablet (six) Branch hours as needed for Pain (scale 7-10). butalbital- Yes [id number] 1{tbl} Take 1 [facility] acetaminoph 5-23 tablet by ity of en-caff 00:00: mouth [place] 50-325-40 00 every 6 Medical mg tablet (six) Branch hours as needed for Pain (scale 7-10). butalbital- Yes [id number] 1{tbl} Take 1 [facility] acetaminoph 5-23 tablet by ity of en-caff 00:00: mouth [place] 50-325-40 00 every 6 Medical mg tablet (six) Branch hours as needed for Pain (scale 7-10). butalbital- Yes [id number] 1{tbl} Take 1 [facility] acetaminoph 5-23 tablet by ity of en-caff 00:00: mouth [place] 50-325-40 00 every 6 Medical mg tablet (six) Branch hours as needed for Pain (scale 7-10). butalbital- Yes [id number] 1{tbl} Take 1 [facility] acetaminoph 5-23 tablet by ity of en-caff 00:00: mouth [place] 50-325-40 00 every 6 Medical mg tablet (six) Branch hours as needed for Pain (scale 7-10). butalbital- Yes [id number] 1{tbl} Take 1 [facility] acetaminoph 5-23 tablet by ity of en-caff 00:00: mouth [place] 50-325-40 00 every 6 Medical mg tablet (six) Branch hours as needed for Pain (scale 7-10). butalbital- Yes [id number] 1{tbl} Take 1 Univers acetaminoph 5-23 tablet by ity of en-caff 00:00: mouth [place] 50-325-40 00 every 6 Medical mg tablet (six) Branch hours as needed for Pain (scale 7-10). butalbital- Yes [id number] 1{tbl} Take 1 [facility] acetaminoph 5-23 tablet by ity of en-caff 00:00: mouth [place] 50-325-40 00 every 6 Medical mg tablet (six) Branch hours as needed for Pain (scale 7-10). butalbital- Yes [id number] 1{tbl} Take 1 [facility] acetaminoph 5-23 tablet by ity of en-caff 00:00: mouth [place] 50-325-40 00 every 6 Medical mg tablet (six) Branch hours as needed for Pain (scale 7-10). butalbital- Yes [id number] 1{tbl} Take 1 Univers acetaminoph 5-23 tablet by ity of en-caff 00:00: mouth [place] 50-325-40 00 every 6 Medical mg tablet (six) Branch hours as needed for Pain (scale 7-10). butalbital- Yes [id number] 1{tbl} Take 1 Univers acetaminoph 5-23 tablet by ity of en-caff 00:00: mouth [place] 50-325-40 00 every 6 Medical mg tablet (six) Branch hours as needed for Pain (scale 7-10). butalbital- Yes [id number] 1{tbl} Take 1 Univers acetaminoph 5-23 tablet by ity of en-caff 00:00: mouth [place] 50-325-40 00 every 6 Medical mg tablet (six) Branch hours as needed for Pain (scale 7-10). butalbital- Yes [id number] 1{tbl} Take 1 [facility] acetaminoph 5-23 tablet by ity of en-caff 00:00: mouth [place] 50-325-40 00 every 6 Medical mg tablet (six) Branch hours as needed for Pain (scale 7-10). butalbital- Yes [id number] 1{tbl} Take 1 Univers acetaminoph 5-23 tablet by ity of en-caff 00:00: mouth [place] 50-325-40 00 every 6 Medical mg tablet (six) Branch hours as needed for Pain (scale 7-10). butalbital- Yes [id number] 1{tbl} Take 1 Univers acetaminoph 5-23 tablet by ity of en-caff 00:00: mouth [place] 50-325-40 00 every 6 Medical mg tablet (six) Branch hours as needed for Pain (scale 7-10). butalbital- Yes [id number] 1{tbl} Take 1 Univers acetaminoph 5-23 tablet by ity of en-caff 00:00: mouth [place] 50-325-40 00 every 6 Medical mg tablet (six) Branch hours as needed for Pain (scale 7-10). butalbital- Yes [id number] 1{tbl} Take 1 [facility] acetaminoph 5-23 tablet by ity of en-caff 00:00: mouth [place] 50-325-40 00 every 6 Medical mg tablet (six) Branch hours as needed for Pain (scale 7-10). butalbital- Yes [id number] 1{tbl} Take 1 [facility] acetaminoph 5-23 tablet by ity of en-caff 00:00: mouth [place] 50-325-40 00 every 6 Medical mg tablet (six) Branch hours as needed for Pain (scale 7-10). butalbital- Yes [id number] 1{tbl} Take 1 Univers acetaminoph 5-23 tablet by ity of en-caff 00:00: mouth [place] 50-325-40 00 every 6 Medical mg tablet (six) Branch hours as needed for Pain (scale 7-10). butalbital- Yes [id number] 1{tbl} Take 1 Univers acetaminoph 5-23 tablet by ity of en-caff 00:00: mouth [place] 50-325-40 00 every 6 Medical mg tablet (six) Branch hours as needed for Pain (scale 7-10). butalbital- 2020- No [id number] 1{tbl} Take 1 Univers acetaminoph 5-23 10-24 [...] at 1999, Until Discontinu ed, Routine gabapentin 2020-0 Yes 600mg 600 mg, Uni vers (NEURONTIN) 5-18 Oral, TID, it y of tablet 600 01:00: First dose [place] mg 00 (after Medical last Branch modificati on) on Sun06/28/20 at 1999, Until Discontinu ed, Routine metoprolol 2020-0 Yes 25mg Take 25 mg [...] mouth ity of (TOPROL XL 00:16: daily. [place] ORAL) 46 Medical Branch inFLIXimab 2020-0 Yes 840mg Inject 840 Univers (REMICADE) 5-18 mg ity of 100 mg 00:16: intravenou [place] injection 46 sly every Medic al 14 Branch (fourteen) days. dicyclomine Yes 20mg Take 20 mg Univers 20 mg 5-18 by mouth 3 ity of tablet 00:16: (three) [place] 46 times Medical daily. Branch erenumab-ao Yes inject Univ ers oe (AIMOVIG 5-18 under the ity of AUTOINJECTO 00:16: skin. [place] R) 140 46 Medical mg/mL AtIn [place] ondansetron 2020- No 4mg Take 4 mg Univers (ZOFRAN -28 06-17 by mouth ity of ODT) 4 mg 21:55: 00:00 every 8 [place] disintegrat 40 :00 (eight) Medic al ing tablet hours as Branc h needed. busPIRone 2020- No 15mg Take 15 mg U nivers 15 mg -17 05-17 by mouth 3 ity of tablet 21:55: 00:00 (three) [place] 40 :00 times Medical daily. Branch butorphanol 2020- No 1mg 1 mg, IV U nivers (STADOL) 06-28-17 Push, ity of injection 1 21:41: 22:04 ONCE, 1 [place] mg 00 :00 dose, [facility] Medical 06/28/20 at Branch 1645, Routine loperamide 2020- No 2mg 2 mg, Unive rs (IMODIUM 06-28-17 Oral, ity of A-D) 21:30: 22:26 ONCE, 1 [place] capsule 2 00 :00 dose, [facility] Medic al mg 06/28/20 at Branch 1630, Routine LORazepam Yes 1mg 1 mg, Univers (ATIVAN) -17 Oral, ity of tablet 1 mg 20:40: QHSPRN, 2 [place] 49 doses, Medical Starting Branch [facility] 06/28/20 at 1540, Until Discontinu ed, Routine, Anxiety butorphanol 2020- No 1mg 1 mg, IV U nivers (STADOL) 06-28 05-17 Push, ity of injection 1 15:35: 20:07 ONCE, 1 [place] mg 00 :00 dose, [facility] 06/28/20 at Branch 1045, Routine proMETHazin 0 Yes 25mg 25 mg, IV U nivers e 17 Piggyback, ity of (PHENERGAN) 13:15: Q6HPRN, [place] 25 mg in 38 Starting Medical NaCl 0.9% [facility] (NS) 50 mL 06/28/20 at IV 0815, piggyback Until Discontinu ed, Routine, Nausea and Vomiting (N/V) hydrOXYzine Yes 10mg 10 mg, Univ ers (ATARAX) 5-17 Oral, ity of tablet 10 06:58: Q6HPRN, [place] mg 54 Starting Medical [facility] 06/28/20 at 0158, Until Discontinu ed, Routine, Anxiety melatonin 0 Yes 3mg 3 mg, Univers (MELATIN) 5-17 Oral, QHS, ity of tablet 3 mg 02:00: First dose [place] 00 on [facility] 06/27/20 at Branch 2100, Until Discontinu ed, Routine butalbital- 0 Yes 1{tbl} 1 tablet, Univers acetaminoph 5-17 Oral, ity of en-caff 01:06: Q6HPRN, [place] (ESGIC) 14 Starting Medical 50-325-40 [place] Branch mg tablet 1 06/27/20 at tablet 2006, Until Discontinu ed, Routine, headache NaCl 0.9% 0 2020- No 250mL at 999 Univ ers (NS) bolus 06-28 05-17 mL/hr, 250 it y of infusion 00:30: 00:30 mL, IV [place] 250 mL 00 :00 Piggyback, Medical ONCE, 1 Branch dose, 06/27/20 at 1930, STAT gabapentin 2020-0 Yes 600mg Take 1 Univ ers 600 mg 5-17 tablet by ity of tablet 00:00: mouth 3 [place] 00 (three) Medical times [place] daily. cyclobenzap 2020-0 Yes 5mg Take 1 [...] 00 (three) Medical times Branch daily. busPIRone 2021-0 [...] Medical times Branch daily. gabapentin 2021-0 Yes 600mg Take 1 Univ [...] as needed for Nausea and Vomiting (N/V). busPIRone 2020-0 Yes 20mg Take 2 Univer [...] for Branch Anxiety or Agitation (insomnia) . gabapentin 2020-0 Yes 600mg Take 1 Univ [...] for Branch Anxiety or Agitation (insomnia) . gabapentin 2020-0 Yes 600mg Take 1 Univ [...] for Branch Anxiety or Agitation (insomnia) . gabapentin 2020-0 Yes 600mg Take 1 Univ ers 600 mg 5-17 tablet by ity of tablet 00:00: mouth 3 (three) Medical times Branch daily. busPIRone 1-0 Yes 20mg Take 2 Univer s 10 mg 5-17 tablets by ity of tablet 00:00: mouth 3 (three) Medical times Branch daily. LORazepam 1 2020-0 Yes 1mg Take 1 Univ ers mg tablet 5-17 tablet by ity o f 00:00: mouth at 00 bedtime as Medical needed for Branch Anxiety or Agitation (insomnia) . gabapentin 2020-0 Yes 600mg Take 1 Univ [...] by ity o f 00:00: mouth at bedtime as Medical needed for Branch Anxiety or Agitation (insomnia) . gabapentin 2020-0 Yes 600mg Take 1 Univ ers 600 mg 5-17 tablet by ity of tablet 00:00: mouth () Medical times Branch daily. busPIRone 2020-0 Yes 20mg Take 2 Univer s 10 mg 5-17 tablets by ity of tablet 00:00: mouth (three) Medical times Branch daily. LORazepam 1 2020-0 Yes 1mg Take 1 Univ ers mg tablet 5-17 tablet by ity o f 00:00: mouth at bedtime as Medical needed for Branch Anxiety or Agitation (insomnia) . gabapentin 2020-0 Yes 600mg Take 1 Univ [...] Anxiety or Agitation (insomnia) . proMETHazin 2020-0 3- No 12.5mg Take 0.5 Univers e 25 mg 5-17 02-12 tablets by ity o f tablet 00:00: 00:00 mouth [place] 00 :00 every 6 Medical (six) Branch hours as needed for Nausea and Vomiting (N/V). proMETHazin 2022- No 12.5mg Take 0.5 Univers e 25 mg 5-17 02-12 tablets by ity o f tablet 00:00: 00:00 mouth [place] 00 :00 every 6 Medical (six) Branch hours as needed for Nausea and Vomiting (N/V). proMETHazin 2022- No 12.5mg Take 0.5 Univers e 25 mg 5-17 02-12 tablets by ity o f tablet 00:00: 00:00 mouth [place] 00 :00 every 6 Medical (six) Branch hours as needed for Nausea and Vomiting (N/V). cyclobenzap No 5mg Take 1 Uni vers rine 5 mg 5-17 -24 tablet by ity of tablet 00:00: 00:00 mouth 3 [place] 00 :00 (three) Medical times Branch daily. ubrogepant No 50mg Take 50 mg Univers (UBRELVY) -28 11-24 by mouth ity o f 50 mg Tab 00:00: 00:00 as needed [place] 00 :00 for Other Medical (Headache) Branch . ondansetron No 4mg 4 mg, Slow Univers (ZOFRAN 5-16 05-17 IV Push, ity of (PF)) 21:25: 13:15 Q6HPRN, [place] injection 4 04 :50 Starting Medi bernadine mg [facility] 06/27/20 at 1625, Until 06/28/20 at 0815, Routine, Nausea and Vomiting (N/V) cyclobenzap Yes 5mg 5 mg, Unive rs rine 5-16 Oral, TID, ity of (FLEXERIL) 16:00: First dose [place] tablet 5 mg 00 on [facility] 06/27/20 at Branch 1100, Until Discontinu ed, Routine ibuprofen Yes 600mg 600 mg, Univ ers (IBU) 5-16 Oral, ity of tablet 600 15:49: Q6HPRN, [place] mg 19 Starting Medical [facility] 06/27/20 at 1049, Until Discontinu ed, Routine, Pain (scale 4-6) pantoprazol 0 Yes 40mg 40 mg, Univ ers e 5-16 Oral, ity of (PROTONIX) 14:00: DAILY, [place] EC tablet 00 First dose Medi bernadine 40 mg on [facility] 06/27/20 at 0900, Until Discontinu ed, Routine losartan 0 Yes 50mg 50 mg, Univers (COZAAR) 5-16 Oral, ity of tablet 50 14:00: DAILY, [place] mg 00 First dose Medical on [facility] 06/27/20 at 0900, Until Discontinu ed, Routine metoprolol Yes 25mg 25 mg, Unive rs succinate 5-16 Oral, ity of XL (TOPROL 14:00: DAILY, [place] XL) tablet 00 First dose Med ical 25 mg on [facility] 06/27/20 at 0900, Until Discontinu ed azaTHIOprin Yes 150mg 150 mg, Un matt e (IMURAN) 5-16 Oral, ity of tablet 150 14:00: DAILY, [place] mg 00 First dose Medical on [facility] 06/27/20 at 0900, Until Discontinu ed, Routine heparin 0 Yes 5000U 5,000 Univers (porcine) 5-16 Units, ity of injection 13:00: Subcutaneo [place] 5,000 Units 00 us, Q12H, Med ical First dose Branch on [place] 06/27/20 at 0800, Until Discontinu ed, Routine dicyclomine 0 Yes 20mg 20 mg, Univ ers (BENTYL) 5-16 Oral, TID, ity o f tablet 20 13:00: First dose [place] mg 00 on [facility] 06/27/20 at Branch 0800, Until Discontinu ed, Routine gabapentin 2020-0 202- No 400mg 400 mg, Un matt (NEURONTIN) 5-16 05-17 Oral, TID, i ty of capsule 400 13:00: 20:40 First dose [place] mg 00 :15 on [facility] 06/27/20 at Branch 0800, Until Discontinu ed, Routine morpHINE 2020-0 202- No 2mg 2 mg, Slow Un matt injection 2 16 05-16 IV Push, ity of mg 10:00: 09:07 ONCE, 1 [place] 00 :00 dose, [facility] 06/27/20 at Branch 0500, GIGI LORazepam 2020- No 2mg 2 mg, Univer s (ATIVAN) 06-27 Oral, ity of tablet 2 mg 06:00: 08:58 ONCE, 1 [place] 00 :00 dose, [facility] 06/27/20 at Branch 0100, Routine gabapentin 2020- No 600mg 600 mg, Un matt (NEURONTIN) 06-27 Oral, ity of tablet 600 05:00: 04:03 ONCE, 1 [place] mg 00 :00 dose, [facility] 06/27/20 at Branch 0000, GIGI [...] 1 [place] D5W 00 :00 dose, [facility] Medical piggyback 06/26/20 at [facility] ch 2315, 100 mL LORazepam 2020- No 1mg 1 mg, Univer s (ATIVAN) 06-27 Oral, QHS, ity of tablet 1 mg 04:00: 01:27 2 doses, [place] 00 :00 First dose Medical (after Branch last modificati on) on [facility] 06/26/20 at 2300, Last dose on 06/27/20 at 2100, Routine proMETHazin 2020- No 25mg 25 mg, Uni vers e 06-27 Intramuscu ity of (PHENERGAN) 03:54: 16:21 lar, [place] injection 03 :00 Q6HPRN, 2 Medic al 25 mg doses, Branch Starting 06/26/20 at 2254, Until Discontinu ed, Routine, Nausea and Vomiting (N/V) NaCl 0.9% 2020- No Infuse Unive rs (NS) SolP 5-16 05-15 once now. ity of 250 mL with 03:53: 00:00 [place] inFLIXimab 04 :00 Medical 100 mg SolR [place] acetaminoph Yes 650mg 650 mg, Un matt en 06-27 Oral, ity of (TYLENOL) 03:49: Q6HPRN, [place] tablet 650 19 Starting Medic al mg Sat Branch 06/26/20 at 2249, Until Discontinu ed, Routine, Pain (scale 4-6) oxybutynin Yes 5mg 5 mg, Univer s chloride 16 Oral, ity of (DITROPAN) 03:49: TIDPRN, [place] [...] aculty member approving Restricted medication : CAIO HERNANDZE proMETHazin 2020- No 12.5mg 12.5 mg, Univers e 06-27 IV ity of (PHENERGAN) 01:15: 00:18 [facility], [place] 12.5 mg in 00 :00 ONCE, 1 Medica l NaCl 0.9% dose, Sat Branc h (NS) 50 mL 06/26/20 at piggyback 2014, 50 mL morpHINE 2020- No 4mg 4 mg, Slow Un matt injection 4 06-27 IV Push, ity of mg 01:15: 00:18 ONCE, 1 [place] 00 :00 dose, Sat Medical 06/26/20 at Branch 2014, STAT iopamidol 2020- No [id number] 100mL 100 mL, Univers (ISOVUE 06-26 Intravenou [...] of (NITROSTAT) 22:15: 21:26 , ONCE, 1 [place] sublingual 00 :00 dose, Sat Medi bernadine tablet 0.4 06/26/20 at Bra nch mg 1715, GIGI magnesium 2020- No 2g 2 g, IV Univ ers sulfate in 06-26 Piggyback, it y of water 2 22:15: 23:46 ONCE, 1 [place] gram/50 mL 00 :00 dose, Sat Medi [...] 10mg 10 mg, Uni vers marilyn HCl 5-15 05-15 Slow IV ity of (REGLAN) 21:30: 20:30 [...] Sat Medical 06/26/20 at Branch 1515, STAT Estradiol Estradiol No Estradiol 0.1 MG/GM 0.1 MG/GM 5-11 0.1 MG/GM 00:00: 00 Estradiol Estradiol No Estradiol 0.1 MG/GM 0.1 MG/GM 5-11 0.1 MG/GM 00:00: 00 Estradiol Estradiol No Estradiol 0.1 MG/GM 0.1 MG/GM 5-11 0.1 MG/GM 00:00: 00 Estradiol Estradiol No Estradiol 0.1 MG/GM 0.1 MG/GM 5-11 0.1 MG/GM 00:00: 00 NaCl 0.9% Yes Infuse Univer s (NS) [...] No 200mg 200 mg, U nivers dine 06-02-21 Oral, ity of (PYRIDIUM) 04:15: 03:34 ONCE, 1 [place] tablet 200 00 :00 dose, Tue Medi bernadine mg 06/01/20 at Branch 2315, Routine pantoprazol 2020- No [id number] 40mg Take 1 Univers e 40 mg EC 06-02-22 tablet by ity of tablet 00:00: 04:59 mouth [place] 00 :00 daily for Medical 30 days. Branch pantoprazol 2020- No [id number] 40mg Take 1 Univers e 40 mg EC -02 07-22 tablet by ity of tablet 00:00: 04:59 mouth [place] 00 :00 daily for Medical 30 days. Branch pantoprazol 2020- No [id number] 40mg Take 1 Univers e 40 mg EC -02 07-22 tablet by ity of tablet 00:00: 04:59 mouth [place] 00 :00 daily for Medical 30 days. Branch HYDROcodone 2020- No [id number] 1{tbl} Take 1 U nivers -acetaminop 06-02 tablet by it y of hen 10-325 00:00: 04:59 mouth [place] mg tablet 00 :00 every 6 Medical (six) Branch hours as needed for Pain (scale 4-6) for up to 7 days. Indication s: acute pain proMETHazin 2020- No [id number] 25mg Take 1 Univers e 25 mg [...] First dose [place] mg 00 on [facility] 06/01/20 at Branch 1415, Until Discontinu ed, Routine HYDROcodone Yes 1{tbl} 1 tablet, Univers -acetaminop 4-20 Oral, ity of hen (NORCO) 19:00: Q6HPRN, [place] 10-325 mg 48 Starting Medica l tablet 1 [facility] tablet 06/01/20 at 1400, Until Discontinu ed, Routine, Pain (scale 4-6) cefpodoxime 2020- No Take by Un matt proxetil -20 04-20 mouth. ity of (VANTIN 18:00: 00:00 [place] ORAL) 17 :00 [facility] Branch proMETHazin Yes 25mg 25 mg, Univ ers e 4-20 Oral, ity of (PHENERGAN) 15:20: Q4HPRN, [place] tablet 25 12 Starting Medica l mg [facility] 06/01/20 at 1020, Until Discontinu ed, Routine, Nausea and Vomiting (N/V) acetaminoph 2020- No 1{tbl} 1 tablet, Univers en-codeine 4-20 04-20 Oral, ity of (TYLENOL 15:18: 19:01 Q4HPRN, [place] #3) 300-30 42 :49 Starting Medic al mg tablet 1 [facility] tablet 06/01/20 at 1018, Until [facility] 06/01/20 at 1401, Routine, Pain (scale 4-6) pantoprazol 2021-0 Yes 40mg 40 mg, Univ ers e 4-20 Oral, ity of (PROTONIX) 14:30: DAILY, [place] EC tablet 00 First dose Medi bernadine 40 mg on [facility] 06/01/20 at 0930, Until Discontinu ed, Routine azaTHIOprin Yes 150mg 150 mg, Un matt e (IMURAN) 4-20 Oral, ity of tablet 150 14:30: DAILY, [place] mg 00 First dose Medical (after Branch last modificati on) on 06/01/20 at 0930, Until Discontinu ed, Routine morpHINE Yes 2mg 2 mg, Slow Uni vers injection 2 -20 IV Push, ity of mg 08:26: Q4HPRN, [place] 30 Starting Medical [facility] 06/01/20 at 0326, Until Discontinu ed, Routine, Pain (scale 7-10) morpHINE 2020- No 2mg 2 mg, Slow Un matt injection 2 -20 04-20 IV Push, ity of mg 06:00: 05:01 ONCE, 1 [place] 00 :00 dose, [facility] 06/01/20 at Branch 0100, Routine amoxicillin 2020- No [id number] 1{tbl} Take 1 Univers -clavulanat 06-01 04-28 tablet by it y of e 00:00: 04:59 mouth 2 [place] (AUGMENTIN) 00 :00 (two) Medical 875-125 mg times Branch per tablet daily for 7 days. proMETHazin 2020- No 25mg 25 mg, IV Univers e 05-31-20 Piggyback, ity of (PHENERGAN) 22:18: 15:20 Q6HPRN, [place] 25 mg in 42 :48 Starting Medical NaCl 0.9% [facility] Branch (NS) 50 mL 05/31/20 at IV 1718, piggyback Until [facility] 06/01/20 at 1020, Routine, Nausea and Vomiting (N/V) acetaminoph Yes 650mg 650 mg, Un matt en 05-31 Oral, ity of (TYLENOL) 15:33: Q6HPRN, [place] tablet 650 00 Starting Medic al mg [facility] 05/31/20 at 1033, Until Discontinu ed, Routine, Temp > 38.5 C butalbital- Yes 1{tbl} 1 tablet, Univers acetaminoph 05-31 Oral, ity of en-caff 15:27: Q6HPRN, [place] (ESGIC) 07 Starting Medical 50-325-40 [facility] mg tablet 1 05/31/20 at tablet 1027, Until Discontinu ed, Routine, Pain (scale 1-3) losartan 0 Yes 50mg 50 mg, Univers (COZAAR) 05-31 Oral, ity of tablet 50 14:00: DAILY, [place] mg 00 First dose Medical (after Branch last modificati on) on Sun05/31/20 at 0900, Until Discontinu ed, Routine metoprolol Yes 25mg 25 mg, Unive rs succinate 05-31 Oral, ity of XL (TOPROL 14:00: DAILY, [place] XL) tablet 00 First dose Med ical 25 mg (after [place] last modificati on) on Sun05/31/20 at 0900, Until Discontinu ed enoxaparin Yes 40mg 40 mg, Unive rs (LOVENOX) 05-31 Subcutaneo ity of injection 14:00: [place], DAILY, [place] 40 mg 00 First dose Medical on [facility] 05/31/20 at 0900, Until Discontinu ed, Routine azaTHIOprin 2020- No 50mg 50 mg, Uni vers e (IMURAN) 05-31 04-20 Oral, ity of tablet 50 14:00: 14:19 DAILY, [place] mg 00 :13 First dose Medical on [facility] 05/31/20 at 0900, Until Discontinu ed, Routine gabapentin Yes 400mg 400 mg, Uni vers (NEURONTIN) 05-31 Oral, TID, it y of 400 mg 13:00: First dose [place] 00 on [facility] 05/31/20 at Branch 0800, Until Discontinu ed, Routine dicyclomine Yes 20mg 20 mg, Univ ers (BENTYL) 05-31 Oral, TID, ity o f tablet 20 13:00: First dose [place] mg 00 on [facility] 05/31/20 at Branch 0800, Until Discontinu ed, Routine busPIRone Yes 15mg 15 mg, Univer s (BUSPAR) 05-31 Oral, TID, ity o f tablet 15 13:00: First dose [place] mg 00 on [facility] 05/31/20 at Branch 0800, Until Discontinu ed, Routine temazepam No 15mg 15 mg, Unive rs (RESTORIL) 05-31 Oral, ity of capsule 15 06:30: 05:28 ONCE, 1 [place] mg 00 :00 dose, [facility] 05/31/20 at Branch 0130, Routine proMETHazin No 25mg 25 mg, Uni vers e 05-31 Oral, ity of (PHENERGAN) 05:29: 22:06 Q6HPRN, [place] tablet 25 16 :24 Starting Medica l mg [facility] 05/31/20 at 0029, Until [facility] 05/31/20 at 1706, Routine, Nausea and Vomiting [...] First dose [place] mg 00 :25 on [facility] 05/30/20 at Branch 2000, Until Discontinu ed, Routine piperacilli No 3.375g 3.375 g, Univers n-tazobacta 05-30 IV ity of m (ZOSYN) 22:45: 22:40 Piggyback, [place] 3.375 g in 00 :00 ONCE, 1 Medica l NaCl 0.9% dose, [place] Branc h (NS) 100 mL 05/30/20 at MINI-BAG 1745, 100 mL
Reas on for Anti-Infec tive: Documented Infection< br>Documen karly Infection Site: Urine
D uration of Therapy: Other (see Comments) FENTanyl PF 2020- No 75ug 75 mcg, Un matt (SUBLIMAZE 05-30 Slow IV ity o f (PF)) 22:45: 21:55 Push, [place] injection 00 :00 ONCE, 1 Medical 75 mcg dose, [facility] 05/30/20 at 1745, STAT proMETHazin 2020- No 25mg 25 mg, IV Univers e 05-30 Piggyback, ity of (PHENERGAN) 22:45: 22:45 ONCE, 1 [place] 25 mg in 00 :00 dose, [place] Medica l NaCl 0.9% 05/30/20 at Bran ch (NS) 50 mL 1745, 50 piggyback mL NaCl 0.9% 2020- No 1000mL at 100 Uni vers (NS) IV 05-30 04-20 mL/hr, IV ity of infusion 22:30: 19:01 Infusion, [place] 1,000 mL 00 :49 CONTINUOUS Medic al , Starting [facility] 05/30/20 at 1730, Until 06/01/20 at 1401, Routine ondansetron Yes 4mg 4 mg, Slow Univers (ZOFRAN 18 IV Push, ity of (PF)) 22:23: Q6HPRN, [place] injection 4 13 Starting Medi bernadine mg [facility] 05/30/20 at 1723, Until Discontinu ed, Routine, Nausea and Vomiting (N/V) morpHINE 2020- No 4mg 4 mg, Slow Un matt injection 4 05-30-19 IV Push, ity of mg 22:23: 22:22 Q4HPRN, [place] 07 :07 Starting Medical [facility] 05/30/20 at 1723, Until 05/31/20 at 1722, Routine, Pain (scale 7-10) HYDROcodone 2020- No 1{tbl} 1 tablet, Univers -acetaminop 05-30 04-20 Oral, ity of hen (NORCO 22:23: 15:19 Q6HPRN, [place] 5) 5-325 mg 02 :39 Starting Medi bernadine tablet 1 [place] tablet 05/30/20 at 1723, Until 06/01/20 at 1019, Routine, Pain (scale 4-6) acetaminoph 2020- No 650mg 650 mg, U nivers en 05-30 Oral, ity of (TYLENOL) 22:22: 15:33 Q6HPRN, [place] tablet 650 55 :25 Starting Medic al mg [facility] 05/30/20 at 1722, Until 05/31/20 at 1033, Routine, Pain (scale 1-3), Temp > 38.5 C oxybutynin Yes 5mg 5 mg, Univer s chloride 05-30 Oral, ity of (DITROPAN) 22:21: TIDPRN, [place] tablet 5 mg 36 Starting Medi bernadine [facility] 05/30/20 at 1721, Until Discontinu ed, Routine, Bladder spasms iohexol 2020- No [id number] 100mL 100 mL, Univers (OMNIPAQUE 05-30 Intravenou it y of 350 21:00: 20:40 s, ONCE, 1 [place] BULK-100 00 :00 dose, [place] Medica l mL) 05/30/20 at [place] injection 1600, 100 mL Routine FENTanyl PF 2020- No 50ug 50 mcg, Un matt (SUBLIMAZE 05-30 Slow IV ity o f (PF)) 21:00: 20:35 Push, [place] injection 00 :00 ONCE, 1 Medical 50 mcg dose, [facility] 05/30/20 at 1600, Routine ondansetron 2020- No 4mg 4 mg, Slow Univers (ZOFRAN 05-30 IV Push, ity of (PF)) 21:00: 20:22 ONCE, 1 [place] injection 4 00 :00 dose, [place] Med ical mg 05/30/20 at Branch 1600, GIGI proMETHazin 2020- No 25mg 25 mg, IV Univers e 05-27 Piggyback, ity of (PHENERGAN) 02:45: 01:47 ONCE, 1 [place] 25 mg in 00 :00 dose, Wed Medica l NaCl 0.9% 05/26/20 at Bran ch (NS) 50 mL 2144, 50 piggyback mL butorphanol 2020- No 2mg 2 mg, IV U nivers (STADOL) 05-2715 Push, ity of injection 2 02:45: 01:33 ONCE, 1 [place] mg 00 :00 dose, [facility] 05/26/20 at Branch 2145, Routine ONDANSETRON 2020- No Take by Un matt HCL (ZOFRAN 05-27 mouth. ity o f ORAL) 01:43: 00:00 [place] 58 :00 [facility] dicyclomine 2020- No 10mg Take 10 mg Univers 10 mg 05-27 by mouth. ity of capsule 01:43: 00:00 [place] 58 :00 [facility] butorphanol 2020- No 1mg 1 mg, IV U nivers (STADOL) 05-27 Push, ity of injection 1 01:30: 00:38 ONCE, 1 [place] mg 00 :00 dose, [facility] 05/26/20 at Branch 2030, Routine NaCl 0.9% 2020- No 1000mL at 999 Uni vers (NS) bolus 05-26-15 mL/hr, ity of infusion 23:30: 01:49 1,000 mL, [place] 1,000 mL 00 :00 IV Medical Infusion, Branch ONCE, 1 dose, [facility] 05/26/20 at 1830, GIGI oxybutynin 2020-0 Yes [id number] 5mg Take 1 U nivers chloride 5 4-14 tablet by ity of mg tablet 00:00: mouth 3 [place] 00 (three) Medical times Branch daily as needed for Bladder spasms. oxybutynin 2020-0 Yes [id number] 5mg Take 1 U nivers chloride 5 4-14 tablet by ity of mg tablet 00:00: mouth 3 [place] 00 (three) Medical times Branch daily as needed for Bladder spasms. oxybutynin 2020-0 Yes [id number] 5mg Take 1 U nivers chloride 5 4-14 tablet by ity of mg tablet 00:00: mouth 3 [place] 00 (three) Medical times Branch daily as needed for Bladder spasms. oxybutynin 1-0 Yes [id number] 5mg Take 1 U nivers chloride 5 4-14 tablet by ity of mg tablet 00:00: mouth (three) Medical times Branch daily as needed for Bladder spasms. oxybutynin 1-0 Yes [id number] 5mg Take 1 U nivers chloride 5 4-14 tablet by ity of mg tablet 00:00: mouth (three) Medical times Branch daily as needed for Bladder spasms. oxybutynin 1-0 Yes [id number] 5mg Take 1 U nivers chloride 5 4-14 tablet by ity of mg tablet 00:00: mouth (three) Medical times Branch daily as needed for Bladder spasms. oxybutynin 1-0 Yes [id number] 5mg Take 1 U nivers chloride 5 4-14 tablet by ity of mg tablet 00:00: mouth (three) Medical times Branch daily as needed for Bladder spasms. oxybutynin 2020-0 Yes [id number] 5mg Take 1 U nivers chloride 5 4-14 tablet by ity of mg tablet 00:00: mouth (three) Medical times Branch daily as needed for Bladder spasms. oxybutynin 1-0 Yes [id number] 5mg Take 1 U nivers chloride 5 4-14 tablet by ity of mg tablet 00:00: mouth (three) Medical times Branch daily as needed for Bladder spasms. oxybutynin 1-0 Yes [id number] 5mg Take 1 U nivers chloride 5 4-14 tablet by ity of mg tablet 00:00: mouth (three) Medical times Branch daily as needed for Bladder spasms. oxybutynin 1-0 Yes [id number] 5mg Take 1 U nivers chloride 5 4-14 tablet by ity of mg tablet 00:00: mouth (three) Medical times Branch daily as needed for Bladder spasms. oxybutynin 1-0 Yes [id number] 5mg Take 1 U nivers chloride 5 4-14 tablet by ity of mg tablet 00:00: mouth (three) Medical times Branch daily as needed for Bladder spasms. oxybutynin 1-0 Yes [id number] 5mg Take 1 U nivers chloride 5 4-14 tablet by ity of mg tablet 00:00: mouth (three) Medical times Branch daily as needed for Bladder spasms. oxybutynin 1-0 Yes [id number] 5mg Take 1 U nivers chloride 5 4-14 tablet by ity of mg tablet 00:00: mouth (three) Medical times Branch daily as needed for Bladder spasms. oxybutynin 1-0 Yes [id number] 5mg Take 1 U nivers chloride 5 4-14 tablet by ity of mg tablet 00:00: mouth (three) Medical times Branch daily as needed for Bladder spasms. oxybutynin 1-0 Yes [id number] 5mg Take 1 U nivers chloride 5 4-14 tablet by ity of mg tablet 00:00: mouth (three) Medical times Branch daily as needed for Bladder spasms. oxybutynin 1-0 Yes [id number] 5mg Take 1 U nivers chloride 5 4-14 tablet by ity of mg tablet 00:00: mouth (three) Medical times Branch daily as needed for Bladder spasms. oxybutynin 1-0 Yes [id number] 5mg Take 1 U nivers chloride 5 4-14 tablet by ity of mg tablet 00:00: mouth (three) Medical times Branch daily as needed for Bladder spasms. oxybutynin 1-0 Yes [id number] 5mg Take 1 U nivers chloride 5 4-14 tablet by ity of mg tablet 00:00: mouth (three) Medical times Branch daily as needed for Bladder spasms. oxybutynin 1-0 Yes [id number] 5mg Take 1 U nivers chloride 5 4-14 tablet by ity of mg tablet 00:00: mouth (three) Medical times Branch daily as needed for Bladder spasms. oxybutynin 1-0 Yes [id number] 5mg Take 1 U nivers chloride 5 4-14 tablet by ity of mg tablet 00:00: mouth (three) Medical times Branch daily as needed for Bladder spasms. oxybutynin 1-0 Yes [id number] 5mg Take 1 U nivers chloride 5 4-14 tablet by ity of mg tablet 00:00: mouth (three) Medical times Branch daily as needed for Bladder spasms. oxybutynin 1-0 Yes [id number] 5mg Take 1 U nivers chloride 5 4-14 tablet by ity of mg tablet 00:00: mouth 3 (three) Medical times Branch daily as needed for Bladder spasms. oxybutynin 2020-0 Yes [id number] 5mg Take 1 U nivers chloride 5 4-14 tablet by ity of mg tablet 00:00: mouth (three) Medical times Branch daily as needed for Bladder spasms. oxybutynin 2020-0 Yes [id number] 5mg Take 1 U nivers chloride 5 4-14 tablet by ity of mg tablet 00:00: mouth (three) Medical times Branch daily as needed for Bladder spasms. oxybutynin 1-0 Yes [id number] 5mg Take 1 U nivers chloride 5 4-14 tablet by ity of mg tablet 00:00: mouth (three) Medical times Branch daily as needed for Bladder spasms. phenazopyri 2020-0 Yes [id number] 200mg Take 1 Univers dine 200 mg 4-14 tablet by ity of tablet 00:00: mouth (three) Medical times Branch daily. proMETHazin 2020-0 Yes [id number] 25mg Take 1 Univers e 25 mg 4-14 tablet by ity of tablet 00:00: mouth 00 every 6 Medical (six) Branch hours as needed for Nausea and Vomiting (N/V). oxybutynin 2020-0 2020- No [id number] 5mg Take 1 Univers chloride 5 4-14 10-24 tablet by ity of mg tablet 00:00: 00:00 mouth 3 [place] 00 :[place] (three) Medical times Branch daily as needed for Bladder spasms. proMETHazin 2020-0 2020- No [id number] 25mg Take 1 Univers e 25 mg 4-14 04-21 tablet by ity of tablet 00:00: 00:00 mouth [place] 00 :00 every 6 Medical (six) Branch hours as needed for Nausea and Vomiting (N/V). phenazopyri 2020-0 2020- No [id number] 200mg Take 1 Univers dine 200 mg 4-14 04-20 tablet by it y of tablet 00:00: 00:00 mouth 3 [place] 00 :00 (three) Medical times Branch daily. FENTanyl PF 2020- No 50ug 50 mcg, Un matt (SUBLIMAZE 05-13 Slow IV ity o f (PF)) 21:30: 20:45 Push, [place] injection 00 :00 ONCE, 1 Medical 50 mcg dose, [facility] Branch 05/13/20 at 1630, Routine cefTRIAXone 2020- No 1000mg 1,000 mg, Univers (ROCEPHIN) 05-13 IV ity of 1,000 mg in 21:30: 21:22 Piggyback, [place] NaCl 0.9% 00 :00 ONCE, 1 Medical (NS) 50 mL dose, [facility] ch MINI-BAG 05/13/20 at 1630, 50 mL
[...] IV ity of (REGLAN) 19:15: 19:04 Push, [place] injection 00 :00 ONCE, 1 Medical 10 mg dose, [facility] Branch 05/13/20 at 1415, GIGI FENTanyl PF 2020- No 50ug 50 mcg, Un matt (SUBLIMAZE 05-13 Slow IV ity o f (PF)) 19:00: 18:57 Push, [place] injection 00 :00 ONCE, 1 Medical 50 mcg dose, [facility] Branch 05/13/20 at 1400, Routine morpHINE 2020- No 4mg 4 mg, Slow Un matt injection 4 05-13 IV Push, ity of mg 17:45: 16:56 ONCE, 1 [place] 00 :00 dose, [facility] 05/13/20 at Branch 1245, STAT ondansetron 2020- No 4mg 4 mg, Slow Univers (ZOFRAN 05-13 IV Push, ity of (PF)) 17:45: 16:55 ONCE, 1 [place] injection 4 00 :00 dose, [facility] Med ical mg 05/13/20 at Branch 1245, [facility] iohexol 2020- No [id number] 120mL 120 mL, Univers (OMNIPAQUE 05-13 Intravenou it y of 350 17:30: 17:22 s, ONCE, 1 [place] BULK-150 00 :00 dose, [facility] Medica l mL) 05/13/20 at Branch injection 1230, 120 mL Routine NaCl 0.9% 2020- No 1000mL at 999 Uni vers (NS) bolus 05-13 mL/hr, ity of infusion 16:45: 20:00 1,000 mL, [place] 1,000 mL 00 :00 IV Medical Infusion, Branch ONCE, 1 dose, [facility] 05/13/20 at 1145, [facility] proMETHazin Yes [id number] 25mg Take 1 Univers e 25 mg 4-01 tablet by ity of tablet 00:00: mouth [place] 00 every 6 Medical (six) Branch hours as needed for Nausea and Vomiting (N/V). proMETHazin Yes [id number] 25mg Take 1 Univers e 25 mg 4-01 tablet by ity of tablet 00:00: mouth [place] 00 every 6 Medical (six) Branch hours as needed for Nausea and Vomiting (N/V). proMETHazin 2020- No [id number] 25mg Take 1 Univers e 25 mg 05-13-14 tablet by ity of tablet 00:00: 00:00 mouth [place] 00 :00 every 6 Medical (six) Branch hours as needed for Nausea and Vomiting (N/V). cefpodoxime 2020- No [id number] 100mg Take 1 Univers 100 mg 05-13-09 [...] ORAL) Medical Branch metoprolol Yes Take by Univ ers succinate 2-09 mouth. ity of (TOPROL XL 15:51: [place] ORAL) Medical Branch metoprolol Yes Take by Univ ers succinate 2-09 mouth. ity of (TOPROL XL 15:51: [place] ORAL) Medical Branch metoprolol Yes Take by Univ ers succinate 2-09 mouth. ity of (TOPROL XL 15:51: [place] ORAL) Medical Branch metoprolol Yes Take by Univ ers succinate 2-09 mouth. ity of (TOPROL XL 15:51: [place] ORAL) Medical Branch metoprolol Yes Take by Univ ers succinate 2-09 mouth. ity of (TOPROL XL 15:51: [place] ORAL) Medical Branch gabapentin Yes [id number] 400mg Take 1 Univers 400 mg 2-09 capsule by ity of capsule 00:00: mouth 3 (three) Medical times Branch daily. gabapentin 2020-0 Yes [id number] 400mg Take 1 Univers 400 mg 2-09 capsule by ity of capsule 00:00: mouth 3 (three) Medical times Branch daily. gabapentin 2020-0 Yes [id number] 400mg Take 1 Univers 400 mg 2-09 capsule by ity of capsule 00:00: mouth 3 00 (three) Medical times Branch daily. gabapentin 2020-0 Yes [id number] 400mg Take 1 Univers 400 mg 2-09 capsule by ity of capsule 00:00: mouth 3 [place] 00 (three) Medical times Branch daily. gabapentin 2021-0 Yes [id number] 400mg Take 1 Univers 400 mg 2-09 capsule by ity of capsule 00:00: mouth 3 [place] (three) Medical times Branch daily. gabapentin 2021-0 Yes [id number] 400mg Take 1 Univers 400 mg 2-09 capsule by ity of capsule 00:00: mouth 3 [place] 00 (three) Medical times Branch daily. gabapentin 2021-0 Yes [id number] 400mg Take 1 Univers 400 mg 2-09 capsule by ity of capsule 00:00: mouth 3 [place] 00 (three) Medical times Branch daily. gabapentin 2021-0 Yes [id number] 400mg Take 1 Univers 400 mg 2-09 capsule by ity of capsule 00:00: mouth 3 [place] (three) Medical times Branch daily. gabapentin 2021-0 Yes [id number] 400mg Take 1 Univers 400 mg 2-09 capsule by ity of capsule 00:00: mouth 3 [place] (three) Medical times Branch daily. gabapentin 2021-0 Yes [id number] 400mg Take 1 Univers 400 mg 2-09 capsule by ity of capsule 00:00: mouth 3 [place] (three) Medical times Branch daily. gabapentin 2021-0 2021- No [id number] 400mg Take 1 Univers 400 mg 2-09 05-17 capsule by ity of capsule 00:00: 00:00 mouth 3 [place] 00 :00 (three) Medical times Branch daily. gabapentin 1-0 Yes 300mg Take 1 Univ ers 300 mg 2-04 capsule by ity of capsule 00:00: mouth 3 [place] (three) Medical times Branch daily. gabapentin 2021-0 2021- No 300mg Take 1 Uni vers 300 mg 2-04 02-09 capsule by ity of capsule 00:00: 00:00 mouth 3 [place] 00 :00 (three) Medical times Branch daily. gabapentin 2021-0 2021- No 300mg Take 1 Uni vers 300 mg 2-04 02-09 capsule by ity of capsule 00:00: 00:00 mouth 3 [place] 00 :00 (three) Medical times Branch daily. FENTanyl PF 2019-02 2020- No 50ug 50 mcg, Un matt (SUBLIMAZE 0- 10- Slow IV ity o f (PF)) 20:00: 07:59 Push, [place] injection 00 :00 ONCE, 1 Medical 50 mcg dose, [facility] Branch 12/08/19 at 1500, STAT proMETHazin 2019-02 2020- No 12.5mg 12.5 mg, Univers e 0-07 12- IV ity of (PHENERGAN) 18:45: 17:52 Piggyback, [place] 12.5 mg in 00 :00 ONCE, 1 Medica l [facility].9[facility]08[facility]19 piggyback at 1345, 50 mL metoclopram 2019-02- No 10mg 10 mg, Uni vers marilyn HCl 0-07 12- Slow IV ity of (REGLAN) 17:45: 17:07 Push, [place] injection 00 :00 ONCE, 1 Medical 10 mg dose, [facility] 12/08/19 at 1245, GIGI FENTanyl PF 2019-02 2020- No 50ug 50 mcg, Un matt (SUBLIMAZE 012-07 Slow IV ity o f (PF)) 17:45: 17:07 Push, [place] injection 00 :00 ONCE, 1 Medical 50 mcg dose, [facility] 12/08/19 at 1245, STAT GABAPENTIN 2019-02 Yes TAKE 1 Unive rs 300 mg 0-26 CAPSULE BY ity of capsule 00:00: MOUTH [place] 00 THREE Medical TIMES A Branch DAY GABAPENTIN 2019-02 Yes TAKE 1 Unive rs 300 mg 0-26 CAPSULE BY ity of capsule 00:00: MOUTH [place] 00 THREE Medical TIMES A Branch DAY proMETHazin 2019-02 Yes [id number] 25mg Take 1 Univers e 25 mg 0-26 tablet by ity of tablet 00:00: mouth [place] 00 every 6 Medical (six) Branch hours as needed for Nausea and Vomiting (N/V). GABAPENTIN 2019-02 Yes TAKE 1 Unive rs 300 mg 0-26 CAPSULE BY ity of capsule 00:00: MOUTH [place] 00 THREE Medical TIMES A Branch DAY proMETHazin 2019-02 Yes [id number] 25mg Take 1 Univers e 25 mg 0-26 tablet by ity of tablet 00:00: mouth [place] 00 every 6 Medical (six) Branch hours as needed for Nausea and Vomiting (N/V). GABAPENTIN 2019-02 Yes TAKE 1 Unive rs 300 mg 0-26 CAPSULE BY ity of capsule 00:00: MOUTH [place] 00 THREE Medical TIMES A Branch DAY proMETHazin 2019- Yes [id number] 25mg Take 1 Univers e 25 mg 0-26 tablet by ity of tablet 00:00: mouth [place] 00 every 6 Medical (six) Branch hours as needed for Nausea and Vomiting (N/V). proMETHazin 2019- Yes [id number] 25mg Take 1 Univers e 25 mg 0-26 tablet by ity of tablet 00:00: mouth [place] 00 every 6 Medical (six) Branch hours as needed for Nausea and Vomiting (N/V). proMETHazin 2019-02 Yes [id number] 25mg Take 1 Univers e 25 mg 0-26 tablet by ity of tablet 00:00: mouth [place] 00 every 6 Medical (six) Branch hours as needed for Nausea and Vomiting (N/V). proMETHazin 2019-02 Yes [id number] 25mg Take 1 Univers e 25 mg 0-26 tablet by ity of tablet 00:00: mouth [place] 00 every 6 Medical (six) Branch hours as needed for Nausea and Vomiting (N/V). proMETHazin 2019-02 Yes [id number] 25mg Take 1 Univers e 25 mg 0-26 tablet by ity of tablet 00:00: mouth [place] 00 every 6 Medical (six) Branch hours as needed for Nausea and Vomiting (N/V). proMETHazin 2019- Yes [id number] 25mg Take 1 Univers e 25 mg 0-26 tablet by ity of tablet 00:00: mouth [place] 00 every 6 Medical (six) Branch hours as needed for Nausea and Vomiting (N/V). proMETHazin 2019- Yes [id number] 25mg Take 1 Univers e 25 mg 0-26 tablet by ity of tablet 00:00: mouth [place] 00 every 6 Medical (six) Branch hours as needed for Nausea and Vomiting (N/V). proMETHazin 2019- Yes [id number] 25mg Take 1 Univers e 25 mg 0-26 tablet by ity of tablet 00:00: mouth [place] 00 every 6 Medical (six) Branch hours as needed for Nausea and Vomiting (N/V). proMETHazin 2019-2020- No [id number] 25mg Take 1 Univers e 25 mg [...] [id number] 1{tbl} Take 1 U nivers en-codeine 0-07 01-03 tablet by ity of (TYLENOL-CO 00:00: 05:59 [place] DEINE #4) 00 :00 every 4 Medical 300-60 mg (four) Branch tablet hours as needed for Pain for up to 7 days. Indication s: acute pain acetaminoph 2019-02- No [id number] 1{tbl} Take 1 U nivers en-codeine 0-26 - tablet by ity of (TYLENOL-CO 00:00: 05:59 mouth [place] DEINE #4) 00 :00 every 4 Medical 300-60 mg (four) Branch tablet hours as needed for Pain for up to 7 days. Indication s: acute pain acetaminoph 2019-02 No [id number] 1{tbl} Take 1 U nivers en-codeine 0-07 01- tablet by ity of (TYLENOL-CO 00:00: 05:59 [...] s mg tablet 0-23 ity of 00:00: [place] [facility] busPIRone 5 2020-1 Yes Univer s mg tablet 0-23 ity of 00:00: [place] [facility] busPIRone 5 2020-1 Yes Univer s mg tablet 0-23 ity of 00:00: [place] [facility] busPIRone 5 2020-1 Yes Univer s mg tablet 0-23 ity of 00:00: [place] [facility] busPIRone 5 2019-1 Yes Univer s mg tablet 0-23 ity of 00:00: [place] [facility] busPIRone 5 2020-1 Yes Univer s mg tablet 0-23 ity of 00:00: [place] [facility] busPIRone 5 2020-1 Yes Univer s mg tablet 0-23 ity of 00:00: [place] [facility] busPIRone 5 2019-2020- No Unive rs mg tablet 0-23 04-18 ity of 00:00: 00:00 [place] 00 : Medical Branch losartan 50 2020-0 Yes 50mg Take 50 mg Univers mg tablet 9-21 by mouth ity of 00:00: daily. [place] [facility] losartan 50 2020-0 Yes 50mg Take 50 mg Univers mg tablet 9-21 by mouth ity of 00:00: daily. [place] [facility] losartan 50 2020-0 Yes 50mg Take 50 mg Univers mg tablet 9-21 by mouth ity of 00:00: daily. [place] [facility] losartan 50 2020-0 Yes 50mg Take 50 mg Univers mg tablet 9-21 by mouth ity of 00:00: daily. [place] [facility] losartan 50 2020-0 Yes 50mg Take 50 mg Univers mg tablet 9-21 by mouth ity of 00:00: daily. [place] [facility] losartan 50 2020-0 Yes 50mg Take 50 mg [facility] mg tablet 9-21 by mouth ity of 00:00: daily. [place] [facility] losartan 50 2020-0 Yes 50mg Take 50 mg [facility] mg tablet 9-21 by mouth ity of 00:00: daily. [place] [address] [facility] losartan 50 2020-0 Yes 50mg Take 50 mg [facility] mg tablet 9-21 by mouth ity of 00:00: daily. [place] [address] [facility] losartan 50 2020-0 Yes 50mg Take 50 mg [facility] mg tablet 9-21 by mouth ity of 00:00: daily. [place] [facility] losartan 50 2020-0 Yes 50mg Take 50 mg [facility] mg tablet 9-21 by mouth ity of 00:00: daily. [place] [facility] losartan 50 2020-0 Yes 50mg Take 50 mg [facility] mg tablet 9-21 by mouth ity of 00:00: daily. [place] [facility] losartan 50 2020-0 Yes 50mg Take 50 mg [facility] mg tablet 9-21 by mouth ity of 00:00: daily. [place] [facility] losartan 50 2020-0 Yes 50mg Take 50 mg [facility] mg tablet 9-21 by mouth ity of 00:00: daily. [place] [facility] losartan 50 2020-0 Yes 50mg Take 50 mg [facility] mg tablet 9-21 by mouth ity of 00:00: daily. [place] [facility] losartan 50 2020-0 Yes 50mg Take 50 mg [facility] mg tablet 9-21 by mouth ity of 00:00: daily. [place] [facility] losartan 50 2020-0 Yes 50mg Take 50 mg [facility] mg tablet 9-21 by mouth ity of 00:00: daily. [place] [facility] losartan 50 2020-0 Yes 50mg Take 50 mg [facility] mg tablet 9-21 by mouth ity of 00:00: daily. [place] [facility] losartan 50 2020-0 Yes 50mg Take 50 mg [facility] mg tablet 9-21 by mouth ity of 00:00: daily. [place] [facility] losartan 50 2020-0 Yes 50mg Take 50 mg [facility] mg tablet 9-21 by mouth ity of 00:00: daily. [place] [facility] losartan 50 2020-0 Yes 50mg Take 50 mg [facility] mg tablet 9-21 by mouth ity of 00:00: daily. [place] [facility] losartan 50 2020-0 Yes 50mg Take 50 mg [facility] mg tablet 9-21 by mouth ity of 00:00: daily. [place] [facility] losartan 50 2020-0 Yes 50mg Take 50 mg [facility] mg tablet 9-21 by mouth ity of 00:00: daily. [place] [facility] losartan 50 2020-0 Yes 50mg Take 50 mg [facility] mg tablet 9-21 by mouth ity of 00:00: daily. [place] [facility] losartan 50 2020-0 Yes 50mg Take 50 mg [facility] mg tablet 9-21 by mouth ity of 00:00: daily. [place] [facility] losartan 50 2020-0 Yes 50mg Take 50 mg [facility] mg tablet 9-21 by mouth ity of 00:00: daily. [facility] losartan 50 2020-0 Yes 50mg Take 50 mg [facility] mg tablet 9-21 by mouth ity of 00:00: daily. [place] [facility] losartan 50 2020-0 Yes 50mg Take 50 mg [facility] mg tablet 9-21 by mouth ity of 00:00: daily. [place] [facility] losartan 50 2020-0 Yes 50mg Take 50 mg [facility] mg tablet 9-21 by mouth ity of 00:00: daily. [place] [facility] losartan 50 2020-0 Yes 50mg Take 50 mg [facility] mg tablet 9-21 by mouth ity of 00:00: daily. [place] [facility] losartan 50 2020-0 Yes 50mg Take 50 mg [facility] mg tablet 9-21 by mouth ity of 00:00: daily. [place] [facility] losartan 50 2020-0 Yes 50mg Take 50 mg [facility] mg tablet 9-21 by mouth ity of 00:00: daily. [place] [facility] losartan 50 2020-0 Yes 50mg Take 50 mg [facility] mg tablet 9-21 by mouth ity of 00:00: daily. [place] [facility] losartan 50 2020-0 Yes 50mg Take 50 mg [facility] mg tablet 9-21 by mouth ity of 00:00: daily. [place] [facility] losartan 50 2020-0 Yes 50mg Take 50 mg [facility] mg tablet 9-21 by mouth ity of 00:00: daily. [place] [facility] losartan 50 2020-0 Yes 50mg Take 50 mg [facility] mg tablet 9-21 by mouth ity of 00:00: daily. [place] [facility] losartan 50 2020-0 Yes 50mg Take 50 mg [facility] mg tablet 9-21 by mouth ity of 00:00: daily. [place] [facility] losartan 50 2020-0 Yes 50mg Take 50 mg [facility] mg tablet 9-21 by mouth ity of 00:00: daily. [place] [facility] losartan 50 2020-0 Yes 50mg Take 50 mg [facility] mg tablet 9-21 by mouth ity of 00:00: daily. [place] [facility] losartan 50 2020-0 2020- No 100mg Take 100 [facility] mg tablet [...] CAPSULE BY ity of capsule 00:00: MOUTH [place] 00 THREE Medical TIMES A Branch DAY GABAPENTIN 2020-0 Yes TAKE 1 [facility] rs 300 mg 8-12 CAPSULE BY ity of capsule 00:00: MOUTH [place] 00 THREE Medical TIMES A Branch DAY GABAPENTIN 2020-0 Yes TAKE 1 [facility] rs 300 mg 8-12 CAPSULE BY ity of capsule 00:00: MOUTH [place] 00 THREE Medical TIMES A Branch DAY GABAPENTIN 2020-0 Yes TAKE 1 [facility] rs 300 mg 8-12 CAPSULE BY ity of capsule 00:00: MOUTH [place] 00 THREE Medical TIMES A Branch DAY GABAPENTIN 2020-0 Yes TAKE 1 [facility] rs 300 mg 8-12 CAPSULE BY ity of capsule 00:00: MOUTH [place] 00 THREE Medical TIMES A Branch DAY GABAPENTIN 2020-0 Yes TAKE 1 [facility] rs 300 mg 8-12 CAPSULE BY ity of capsule 00:00: MOUTH [place] 00 THREE Medical TIMES A Branch DAY [...] 300mg Take 1 [facility] ers 300 mg 4- capsule by ity of capsule 00:00: mouth 3 00 (three) Medical times Branch daily. gabapentin 2020-0 2020- No 300mg Take 1 [facility] vers 300 mg 05-21-25 capsule by ity of capsule 00:00: 00:00 [...] 300mg Take 1 [facility] vers 300 mg 3 04-09 capsule by ity of capsule 00:00: 00:00 mouth 3 00 :00 (three) Medical times Branch daily. divalproex 2020-0 Yes [id number] 250mg Take 1 [facility] 250 mg EC 3-05 tablet by ity o f tablet 00:00: mouth [place] 00 every 12 Medical (twelve) Branch hours. divalproex 2020-0 Yes [id number] 250mg Take 1 [facility] 250 mg EC 3-05 tablet by ity o f tablet 00:00: mouth [place] 00 every 12 Medical (twelve) Branch hours. divalproex 2020-0 Yes [id number] 250mg Take 1 [facility] 250 mg EC 3-05 tablet by ity o f tablet 00:00: mouth [place] 00 every 12 Medical (twelve) Branch hours. divalproex 2020-0 Yes [id number] 250mg Take 1 [facility] 250 mg EC 3-05 tablet by ity o f tablet 00:00: mouth [place] 00 every 12 Medical (twelve) Branch hours. divalproex 2020-0 Yes [id number] 250mg Take 1 [facility] 250 mg EC 3-05 tablet by ity o f tablet 00:00: mouth [place] 00 every 12 Medical (twelve) Branch hours. divalproex 2020-0 Yes [id number] 250mg Take 1 [facility] 250 mg EC 2-28 tablet by ity o f tablet 00:00: mouth [place] 00 every 12 Medical (twelve) Branch hours. divalproex 2020-0 2020- No [id number] 250mg Take 1 [facility] 250 mg EC 2-28 03-05 tablet by ity of tablet 00:00: 00:00 mouth [place] 00 :00 every 12 Medical (twelve) Branch hours. divalproex 2020-0 2020- No [id number] 250mg Take 1 [facility] 250 mg EC 2-28 03-05 tablet by ity of tablet 00:00: 00:00 mouth [place] 00 :00 every 12 Medical (twelve) Branch hours. divalproex 2020-0 2020- No [id number] 250mg Take 1 [facility] 250 mg EC 2-28 03-05 tablet by ity of tablet 00:00: 00:00 mouth [place] 00 :00 every 12 Medical (twelve) Branch hours. divalproex 2020-0 2020- No [id number] 250mg Take 1 [facility] 250 mg EC [...] times Medical daily. Branch divalproex 2020-0 Yes [id number] 125mg Take 1 [facility] 125 mg EC 2-14 tablet by ity o f tablet 00:00: mouth [place] 00 every 12 Medical (twelve) Branch hours. divalproex 2020-0 Yes [id number] 125mg Take 1 [facility] 125 mg EC 2-14 tablet by ity o f tablet 00:00: mouth [place] 00 every 12 Medical (twelve) Branch hours. divalproex 2020-0 Yes [id number] 125mg Take 1 [facility] 125 mg EC 2-14 tablet by ity o f tablet 00:00: mouth [place] 00 every 12 Medical (twelve) Branch hours. divalproex 2020-0 Yes [id number] 125mg Take 1 [facility] 125 mg EC 2-14 tablet by ity o f tablet 00:00: mouth [place] 00 every 12 Medical (twelve) Branch hours. divalproex 2020-0 2020- No [id number] 125mg Take 1 [facility] 125 mg EC [...] 2-09 by mouth. ity of capsule 15:24: [address] dicyclomine 2018-02 Yes 10mg Take 10 mg [facility] 10 mg 2-09 by mouth. ity of capsule 15:24: [address] dicyclomine 2018-02 Yes 10mg Take 10 mg [facility] 10 mg 2-09 by mouth. ity of capsule 15:24: [address] dicyclomine 2019- Yes 10mg Take 10 mg [facility] 10 mg 2-09 by mouth. ity of capsule 15:24: [address] dicyclomine 2018-02 Yes 10mg Take 10 mg [facility] 10 mg 2-09 by mouth. ity of capsule 15:24: [address] dicyclomine 2019- Yes 10mg Take 10 mg [facility] 10 mg 2-09 by mouth. ity of capsule 15:24: [address] dicyclomine 2018-02 Yes 10mg Take 10 mg [facility] 10 mg 2-09 by mouth. ity of capsule 15:24: [address] dicyclomine 2018-02 Yes 10mg Take 10 mg [facility] 10 mg 2-09 by mouth. ity of capsule 15:24: [address] dicyclomine 2018-02 Yes 10mg Take 10 mg [facility] 10 mg 2-09 by mouth. ity of capsule 15:24: [address] dicyclomine 2018-02 Yes 10mg Take 10 mg [facility] 10 mg 2-09 by mouth. ity of capsule 15:24: [address] dicyclomine 2018-02 Yes 10mg Take 10 mg [facility] 10 mg 2-09 by mouth. ity of capsule 15:24: [address] dicyclomine 2018-02 Yes 10mg Take 10 mg [facility] 10 mg 2-09 by mouth. ity of capsule 15:24: [address] dicyclomine 2018-02 Yes 10mg Take 10 mg [facility] 10 mg 2-09 by mouth. ity of capsule 15:24: [address] dicyclomine 2018-02 Yes 10mg Take 10 mg [facility] 10 mg 2-09 by mouth. ity of capsule 15:24: [address] dicyclomine 2018-02 Yes 10mg Take 10 mg [facility] 10 mg 2-09 by mouth. ity of capsule 15:24: [address] dicyclomine 2018-02 Yes 10mg Take 10 mg [facility] 10 mg 2-09 by mouth. ity of capsule 15:24: [address] dicyclomine 2018-02 Yes 10mg Take 10 mg [facility] 10 mg 2-09 by mouth. ity of capsule 15:24: [address] dicyclomine 2018-02 Yes 10mg Take 10 mg [facility] 10 mg 2-09 by mouth. ity of capsule 15:24: [address] dicyclomine 2018-02 Yes 10mg Take 10 mg [facility] 10 mg 2-09 by mouth. ity of capsule 15:24: [address] dicyclomine 2018-02 Yes 10mg Take 10 mg [facility] 10 mg 2-09 by mouth. ity of capsule 15:24: [address] dicyclomine 2018-02 Yes 10mg Take 10 mg [facility] 10 mg 2-09 by mouth. ity of capsule 15:24: [address] dicyclomine 2018-02 Yes 10mg Take 10 mg [facility] 10 mg 2-09 by mouth. ity of capsule 15:24: [address] dicyclomine 2018-02 Yes 10mg Take 10 mg [facility] 10 mg 2-09 by mouth. ity of capsule 15:24: [address] dicyclomine 2018-02 Yes 10mg Take 10 mg [facility] 10 mg 2-09 by mouth. ity of capsule 15:24: [address] dicyclomine 2018-02 Yes 10mg Take 10 mg [facility] 10 mg 2-09 by mouth. ity of capsule 15:24: [address] dicyclomine 2018-02 Yes 10mg Take 10 mg [facility] 10 mg 2-09 by mouth. ity of capsule 15:24: [address] dicyclomine 2018-02 Yes 10mg Take 10 mg [facility] 10 mg 2-09 by mouth. ity of capsule 15:24: [address] dicyclomine 2018-02 Yes 10mg Take 10 mg [facility] 10 mg 2-09 by mouth. ity of capsule 15:24: [address] dicyclomine 2018-02 Yes 10mg Take 10 mg [facility] 10 mg 2-09 by mouth. ity of capsule 15:24: [address] dicyclomine 2018-02 Yes 10mg Take 10 mg [facility] 10 mg 2-09 by mouth. ity of capsule 15:24: [address] dicyclomine 2018-02 Yes 10mg Take 10 mg [facility] 10 mg 2-09 by mouth. ity of capsule 15:24: [address] dicyclomine 2018-02 Yes 10mg Take 10 mg [facility] 10 mg 2-09 by mouth. ity of capsule 15:24: [address] ONDANSETRON 2018-02 Yes Take by Uni vers HCL (ZOFRAN 2-09 mouth. ity of ORAL) 15:22: [address] ONDANSETRON 2018-02 Yes Take by [facility] vers HCL (ZOFRAN 2-09 mouth. ity of ORAL) 15:22: [address] ONDANSETRON 2018-02 Yes Take by [facility] vers HCL (ZOFRAN 2-09 mouth. ity of ORAL) 15:22: [address] ONDANSETRON 2018- Yes Take by [facility] vers HCL (ZOFRAN 2-09 mouth. ity of ORAL) 15:22: [address] ONDANSETRON 2018- Yes Take by [facility] vers HCL (ZOFRAN 2-09 mouth. ity of ORAL) 15:22: [address] ONDANSETRON 2018-02 Yes Take by [facility] vers HCL (ZOFRAN 2-09 mouth. ity of ORAL) 15:22: [address] ONDANSETRON 2018-02 Yes Take by [facility] vers HCL (ZOFRAN 2-09 mouth. ity of ORAL) 15:22: [address] 2018-02 Yes Take by [facility] vers HCL (ZOFRAN 2-09 mouth. ity of ORAL) 15:22: [address] 2018-02 Yes Take by [facility] vers HCL (ZOFRAN 2-09 mouth. ity of ORAL) 15:22: [address] 2018-02 Yes Take by [facility] vers HCL (ZOFRAN 2-09 mouth. ity of ORAL) 15:22: [address] 2018-02 Yes Take by [facility] vers HCL (ZOFRAN 2-09 mouth. ity of ORAL) 15:22: [address] 2018-02 Yes Take by [facility] vers HCL (ZOFRAN 2-09 mouth. ity of ORAL) 15:22: [address] ONDANSETRON 2018-02 Yes Take by [facility] vers HCL (ZOFRAN 2-09 mouth. ity of ORAL) 15:22: [address] 2018-02 Yes Take by [facility] vers HCL (ZOFRAN 2-09 mouth. ity of ORAL) 15:22: [address] ONDANSETRON 2018-02 Yes Take by [facility] vers HCL (ZOFRAN 2-09 mouth. ity of ORAL) 15:22: [address] ONDANSETRON 2018-02 Yes Take by [facility] vers HCL (ZOFRAN 2-09 mouth. ity of ORAL) 15:22: [address] 2018-02 Yes Take by [facility] vers HCL (ZOFRAN 2-09 mouth. ity of ORAL) 15:22: [address] 2018-02 Yes Take by [facility] vers HCL (ZOFRAN 2-09 mouth. ity of ORAL) 15:22: [address] ONDANSETRON 2018-02 Yes Take by [facility] vers HCL (ZOFRAN 2-09 mouth. ity of ORAL) 15:22: [address] ONDANSETRON 2018-02 Yes Take by [facility] vers HCL (ZOFRAN 2-09 mouth. ity of ORAL) 15:22: [address] ONDANSETRON 2018-02 Yes Take by [facility] vers HCL (ZOFRAN 2-09 mouth. ity of ORAL) 15:22: [address]-02 Yes Take by [facility] vers HCL (ZOFRAN 2-09 mouth. ity of ORAL) 15:22: [address] 2018-02 Yes Take by [facility] vers HCL (ZOFRAN 2-09 mouth. ity of ORAL) 15:22: [address] 2018-02 Yes Take by [facility] vers HCL (ZOFRAN 2-09 mouth. ity of ORAL) 15:22: [address] 2018-02 Yes Take by [facility] vers HCL (ZOFRAN 2-09 mouth. ity of ORAL) 15:22: [address] 2018-02 Yes Take by [facility] vers HCL (ZOFRAN 2-09 mouth. ity of ORAL) 15:22: [address] 2018-02 Yes Take by [facility] vers HCL (ZOFRAN 2-09 mouth. ity of ORAL) 15:22: [address] ONDANSETRON 2018-02 Yes Take by [facility] vers HCL (ZOFRAN 2-09 mouth. ity of ORAL) 15:22: [address] 2018-02 Yes Take by [facility] vers HCL (ZOFRAN 2-09 mouth. ity of ORAL) 15:22: [address] 2018-02 Yes Take by [facility] vers HCL (ZOFRAN 2-09 mouth. ity of ORAL) 15:22: [address] 2018-02 Yes Take by [facility] vers HCL (ZOFRAN 2-09 mouth. ity of ORAL) 15:22: [address] 2018-02 Yes Take by [facility] vers [...] 50 mg 2-02 ity of tablet 00:00: [place] [facility] azaTHIOprin 2019-1 Yes Univer s e 50 mg 2-02 ity of tablet 00:00: [place] [facility] azaTHIOprin 2019-1 Yes Univer s e 50 mg 2-02 ity of tablet 00:00: [place] [facility] azaTHIOprin 2019-1 Yes Univer s e 50 mg 2-02 ity of tablet 00:00: [place] [facility] azaTHIOprin 2019-1 Yes Univer s e 50 mg 2-02 ity of tablet 00:00: [place] [address] [facility] azaTHIOprin 2019-1 Yes Univer s e 50 mg 2-02 ity of tablet 00:00: [place] [address] [facility] azaTHIOprin 2019-1 Yes Univer s e 50 mg 2-02 ity of tablet 00:00: [place] [address] [facility] azaTHIOprin 2019-1 Yes Univer s e 50 mg 2-02 ity of tablet 00:00: [place] [address] [facility] azaTHIOprin 2019-1 Yes Univer s e 50 mg 2-02 ity of tablet 00:00: [place] [address] [facility] azaTHIOprin 2019-1 Yes Univer s e 50 mg 2-02 ity of tablet 00:00: [place] [address] [facility] azaTHIOprin 2019-1 Yes Univer s e 50 mg 2-02 ity of tablet 00:00: [place] [address] [facility] azaTHIOprin 2019-1 Yes Univer s e 50 mg 2-02 ity of tablet 00:00: [place] [address] [facility] azaTHIOprin 2019-1 Yes Univer s e 50 mg 2-02 ity of tablet 00:00: [place] [address] [facility] azaTHIOprin 2019-1 Yes Univer s e 50 mg 2-02 ity of tablet 00:00: [place] [address] [facility] azaTHIOprin 2019-1 Yes Univer s e 50 mg 2-02 ity of tablet 00:00: [place] [address] [facility] azaTHIOprin 2019-1 Yes Univer s e 50 mg 2-02 ity of tablet 00:00: [place] [address] [facility] azaTHIOprin 2019-1 Yes Univer s e 50 mg 2-02 ity of tablet 00:00: [place] [address] [facility] azaTHIOprin 2019-1 Yes Univer s e 50 mg 2-02 ity of tablet 00:00: [place] [address] [facility] azaTHIOprin 2019-1 Yes Univer s e 50 mg 2-02 ity of tablet 00:00: [place] [address] [facility] azaTHIOprin 2019- Yes Univer s e 50 mg 2-02 ity of tablet 00:00: [place] [facility] azaTHIOprin 2019-1 Yes Univer s e 50 mg 2-02 ity of tablet 00:00: [place] [facility] azaTHIOprin 2019-1 Yes Univer s e 50 mg 2-02 ity of tablet 00:00: [place] [facility] azaTHIOprin 2019-1 Yes Univer s e 50 mg 2-02 ity of tablet 00:00: [place] [facility] azaTHIOprin 2019-1 Yes Univer s e 50 mg 2-02 ity of tablet 00:00: [place] [facility] azaTHIOprin 2019-1 Yes Univer s e 50 mg 2-02 ity of tablet 00:00: [place] [facility] azaTHIOprin 2019- Yes Univer s e 50 mg 2-02 ity of tablet 00:00: [place] [facility] azaTHIOprin 2019- Yes Univer s e 50 mg 2-02 ity of tablet 00:00: [place] [facility] azaTHIOprin 2019-1 Yes Univer s e 50 mg 2-02 ity of tablet 00:00: [place] [facility] azaTHIOprin 2019- Yes Univer s e 50 mg 2-02 ity of tablet 00:00: [place] [address] [facility] azaTHIOprin 2019-1 Yes Univer s e 50 mg 2-02 ity of tablet 00:00: [place] [address] [facility] azaTHIOprin 2019-1 Yes Univer s e 50 mg 2-02 ity of tablet 00:00: [place] [address] [facility] azaTHIOprin 2019-1 2021- No 150mg Take 150 Univers e 50 mg 2-02 10-24 mg by ity of tablet 00:00: 00:00 mouth [place] 00 :00 daily. Medical Branch ibuprofen 2018-02 Yes [id number] 600mg Take 1 [facility] 600 mg 1-13 tablet by ity of tablet 00:00: mouth [place] 00 every 6 Medical (six) Branch hours as needed for Pain (scale 4-6). ibuprofen 2018- Yes [id number] 600mg Take 1 [facility] 600 mg 1-13 tablet by ity of tablet 00:00: mouth [place] 00 every 6 Medical (six) Branch hours as needed for Pain (scale 4-6). ibuprofen 2018-02 Yes [id number] 600mg Take 1 [facility] 600 mg 1-13 tablet by ity of tablet 00:00: mouth [place] 00 every 6 Medical (six) Branch hours as needed for Pain (scale 4-6). ibuprofen 2018-02 Yes [id number] 600mg Take 1 [facility] 600 mg 1-13 tablet by ity of tablet 00:00: mouth [place] 00 every 6 Medical (six) Branch hours as needed for Pain (scale 4-6). ibuprofen 2018-02 Yes [id number] 600mg Take 1 [facility] 600 mg 1-13 tablet by ity of tablet 00:00: mouth [place] 00 every 6 Medical (six) Branch hours as needed for Pain (scale 4-6). ibuprofen 2018-02 Yes [id number] 600mg Take 1 [facility] 600 mg 1-13 tablet by ity of tablet 00:00: mouth [place] 00 every 6 Medical (six) Branch hours as needed for Pain (scale 4-6). ibuprofen 2018-02 Yes [id number] 600mg Take 1 [facility] 600 mg 1-13 tablet by ity of tablet 00:00: mouth [place] 00 every 6 Medical (six) Branch hours as needed for Pain (scale 4-6). ibuprofen 2018-02 Yes [id number] 600mg Take 1 [facility] 600 mg 1-13 tablet by ity of tablet 00:00: mouth [place] 00 every 6 Medical (six) Branch hours as needed for Pain (scale 4-6). ibuprofen 2018-02 Yes [id number] 600mg Take 1 [facility] 600 mg 1-13 tablet by ity of tablet 00:00: mouth [place] 00 every 6 Medical (six) Branch hours as needed for Pain (scale 4-6). ibuprofen 2018-02 Yes [id number] 600mg Take 1 [facility] 600 mg 1-13 tablet by ity of tablet 00:00: mouth [place] 00 every 6 Medical (six) Branch hours as needed for Pain (scale 4-6). ibuprofen 2018- Yes [id number] 600mg Take 1 [facility] 600 mg 1-13 tablet by ity of tablet 00:00: mouth [place] 00 every 6 Medical (six) Branch hours as needed for Pain (scale 4-6). ibuprofen 2018- Yes [id number] 600mg Take 1 [facility] 600 mg 1-13 tablet by ity of tablet 00:00: mouth [place] 00 every 6 Medical (six) Branch hours as needed for Pain (scale 4-6). ibuprofen 2018- Yes [id number] 600mg Take 1 [facility] 600 mg 1-13 tablet by ity of tablet 00:00: mouth [place] 00 every 6 Medical (six) Branch hours as needed for Pain (scale 4-6). ibuprofen 2018-02 Yes [id number] 600mg Take 1 [facility] 600 mg 1-13 tablet by ity of tablet 00:00: mouth [place] 00 every 6 Medical (six) Branch hours as needed for Pain (scale 4-6). ibuprofen 2018-02 Yes [id number] 600mg Take 1 [facility] 600 mg 1-13 tablet by ity of tablet 00:00: mouth [place] 00 every 6 Medical (six) Branch hours as needed for Pain (scale 4-6). ibuprofen 2018-02 Yes [id number] 600mg Take 1 [facility] 600 mg 1-13 tablet by ity of tablet 00:00: mouth [place] 00 every 6 Medical (six) Branch hours as needed for Pain (scale 4-6). ibuprofen 2018-02 Yes [id number] 600mg Take 1 [facility] 600 mg 1-13 tablet by ity of tablet 00:00: mouth [place] 00 every 6 Medical (six) Branch hours as needed for Pain (scale 4-6). ibuprofen 2018-02 Yes [id number] 600mg Take 1 [facility] 600 mg 1-13 tablet by ity of tablet 00:00: mouth [place] 00 every 6 Medical (six) Branch hours as needed for Pain (scale 4-6). ibuprofen 2018-02 Yes [id number] 600mg Take 1 [facility] 600 mg 1-13 tablet by ity of tablet 00:00: mouth [place] 00 every 6 Medical (six) Branch hours as needed for Pain (scale 4-6). ibuprofen 2018-02 Yes [id number] 600mg Take 1 [facility] 600 mg 1-13 tablet by ity of tablet 00:00: mouth [place] 00 every 6 Medical (six) Branch hours as needed for Pain (scale 4-6). ibuprofen 2018- Yes [id number] 600mg Take 1 [facility] 600 mg 1-13 tablet by ity of tablet 00:00: mouth [place] 00 every 6 Medical (six) Branch hours as needed for Pain (scale 4-6). ibuprofen 2018- Yes [id number] 600mg Take 1 [facility] 600 mg 1-13 tablet by ity of tablet 00:00: mouth [place] 00 every 6 Medical (six) Branch hours as needed for Pain (scale 4-6). ibuprofen 2018 Yes [id number] 600mg Take 1 [facility] 600 mg 1-13 tablet by ity of tablet 00:00: mouth [place] 00 every 6 Medical (six) Branch hours as needed for Pain (scale 4-6). ibuprofen 2018-02 Yes [id number] 600mg Take 1 [facility] 600 mg 1-13 tablet by ity of tablet 00:00: mouth [place] 00 every 6 Medical (six) Branch hours as needed for Pain (scale 4-6). ibuprofen 2018-02 Yes [id number] 600mg Take 1 [facility] 600 mg 1-13 tablet by ity of tablet 00:00: mouth [place] 00 every 6 Medical (six) Branch hours as needed for Pain (scale 4-6). ibuprofen 2018-02 Yes [id number] 600mg Take 1 [facility] 600 mg 1-13 tablet by ity of tablet 00:00: mouth [place] 00 every 6 Medical (six) Branch hours as needed for Pain (scale 4-6). ibuprofen 2018-02 Yes [id number] 600mg Take 1 [facility] 600 mg 1-13 tablet by ity of tablet 00:00: mouth [place] 00 every 6 Medical (six) Branch hours as needed for Pain (scale 4-6). ibuprofen 2018-02 Yes [id number] 600mg Take 1 [facility] 600 mg 1-13 tablet by ity of tablet 00:00: mouth [place] 00 every 6 Medical (six) Branch hours as needed for Pain (scale 4-6). ibuprofen 2018-02 Yes [id number] 600mg Take 1 [facility] 600 mg 1-13 tablet by ity of tablet 00:00: mouth [place] 00 every 6 Medical (six) Branch hours as needed for Pain (scale 4-6). ibuprofen 2018-02 Yes [id number] 600mg Take 1 [facility] 600 mg 1-13 tablet by ity of tablet 00:00: mouth [place] 00 every 6 Medical (six) Branch hours as needed for Pain (scale 4-6). ibuprofen 2018-02 Yes [id number] 600mg Take 1 [facility] 600 mg 1-13 tablet by ity of tablet 00:00: mouth [place] 00 every 6 Medical (six) Branch hours as needed for Pain (scale 4-6). ibuprofen 2018-02 Yes [id number] 600mg Take 1 [facility] 600 mg 1-13 tablet by ity of tablet 00:00: mouth [place] 00 every 6 Medical (six) Branch hours as needed for Pain (scale 4-6). ibuprofen 2018-02 Yes [id number] 600mg Take 1 [facility] 600 mg 1-13 tablet by ity of tablet 00:00: mouth [place] 00 every 6 Medical (six) Branch hours as needed for Pain (scale 4-6). ibuprofen 2018- Yes [id number] 600mg Take 1 [facility] 600 mg 1-13 tablet by ity of tablet 00:00: mouth [place] 00 every 6 Medical (six) Branch hours as needed for Pain (scale 4-6). ibuprofen 2018-02 Yes [id number] 600mg Take 1 [facility] 600 mg 1-13 tablet by ity of tablet 00:00: mouth [place] 00 every 6 Medical (six) Branch hours as needed for Pain (scale 4-6). ibuprofen 2018-02 Yes [id number] 600mg Take 1 [facility] 600 mg 1-13 tablet by ity of tablet 00:00: mouth [place] 00 every 6 Medical (six) Branch hours as needed for Pain (scale 4-6). ibuprofen 2018-02 Yes [id number] 600mg Take 1 [facility] 600 mg 1-13 tablet by ity of tablet 00:00: mouth [place] 00 every 6 Medical (six) Branch hours as needed for Pain (scale 4-6). ibuprofen 2018-02 Yes [id number] 600mg Take 1 [facility] 600 mg 1-13 tablet by ity of tablet 00:00: mouth [place] 00 every 6 Medical (six) Branch hours as needed for Pain (scale 4-6). ibuprofen 2018-02 Yes [id number] 600mg Take 1 [facility] 600 mg 1-13 tablet by ity of tablet 00:00: mouth [place] 00 every 6 Medical (six) Branch hours as needed for Pain (scale 4-6). ibuprofen 2018-02 Yes [id number] 600mg Take 1 [facility] 600 mg 1-13 tablet by ity of tablet 00:00: mouth [place] 00 every 6 Medical (six) Branch hours as needed for Pain (scale 4-6). ibuprofen 2018- Yes [id number] 600mg Take 1 [facility] 600 mg 1-13 tablet by ity of tablet 00:00: mouth [place] 00 every 6 Medical (six) Branch hours as needed for Pain (scale 4-6). ibuprofen 2018- Yes [id number] 600mg Take 1 [facility] 600 mg 1-13 tablet by ity of tablet 00:00: mouth [place] 00 every 6 Medical (six) Branch hours as needed for Pain (scale 4-6). ibuprofen 2018-02 Yes [id number] 600mg Take 1 [facility] 600 mg 1-13 tablet by ity of tablet 00:00: mouth [place] 00 every 6 Medical (six) Branch hours as needed for Pain (scale 4-6). ibuprofen 2018-02 Yes [id number] 600mg Take 1 [facility] 600 mg 1-13 tablet by ity of tablet 00:00: mouth [place] 00 every 6 Medical (six) Branch hours as needed for Pain (scale 4-6). ibuprofen 2018-02 Yes [id number] 600mg Take 1 [facility] 600 mg 1-13 tablet by ity of tablet 00:00: mouth [place] 00 every 6 Medical (six) Branch hours as needed for Pain (scale 4-6). ibuprofen 2018-02 Yes [id number] 600mg Take 1 [facility] 600 mg 1-13 tablet by ity of tablet 00:00: mouth [place] 00 every 6 Medical (six) Branch hours as needed for Pain (scale 4-6). ibuprofen 2018-02 Yes [id number] 600mg Take 1 [facility] 600 mg 1-13 tablet by ity of tablet 00:00: mouth [place] 00 every 6 Medical (six) Branch hours as needed for Pain (scale 4-6). ibuprofen 2018-02 Yes [id number] 600mg Take 1 [facility] 600 mg 1-13 tablet by ity of tablet 00:00: mouth [place] 00 every 6 Medical (six) Branch hours as needed for Pain (scale 4-6). ibuprofen 2018-02 Yes [id number] 600mg Take 1 [facility] 600 mg 1-13 tablet by ity of tablet 00:00: mouth [place] 00 every 6 Medical (six) Branch hours as needed for Pain (scale 4-6). ibuprofen 2018-02 Yes [id number] 600mg Take 1 [facility] 600 mg 1-13 tablet by ity of tablet 00:00: mouth [place] 00 every 6 Medical (six) Branch hours as needed for Pain (scale 4-6). ibuprofen 2018- Yes [id number] 600mg Take 1 [facility] 600 mg 1-13 tablet by ity of tablet 00:00: mouth [place] 00 every 6 Medical (six) Branch hours as needed for Pain (scale 4-6). ibuprofen 2018- Yes [id number] 600mg Take 1 [facility] 600 mg 1-13 tablet by ity of tablet 00:00: mouth [place] 00 every 6 Medical (six) Branch hours as needed for Pain (scale 4-6). ibuprofen 2018-02 Yes [id number] 600mg Take 1 [facility] 600 mg 1-13 tablet by ity of tablet 00:00: mouth [place] 00 every 6 Medical (six) Branch hours as needed for Pain (scale 4-6). ibuprofen 2018-02 Yes [id number] 600mg Take 1 [facility] 600 mg 1-13 tablet by ity of tablet 00:00: mouth [place] 00 every 6 Medical (six) Branch hours as needed for Pain (scale 4-6). ibuprofen 2018-02 Yes [id number] 600mg Take 1 [facility] 600 mg 1-13 tablet by ity of tablet 00:00: mouth [place] 00 every 6 Medical (six) Branch hours as needed for Pain (scale 4-6). ibuprofen 2018-02 Yes [id number] 600mg Take 1 [facility] 600 mg 1-13 tablet by ity of tablet 00:00: mouth [place] 00 every 6 Medical (six) Branch hours as needed for Pain (scale 4-6). ibuprofen 2018-02 Yes [id number] 600mg Take 1 [facility] 600 mg 1-13 tablet by ity of tablet 00:00: mouth [place] 00 every 6 Medical (six) Branch hours as needed for Pain (scale 4-6). ibuprofen 2018-02 Yes [id number] 600mg Take 1 [facility] 600 mg 1-13 tablet by ity of tablet 00:00: mouth [place] 00 every 6 Medical (six) Branch hours as needed for Pain (scale 4-6). ibuprofen 2018-02- No [id number] 600mg Take 1 [facility] 600 mg 1-13 10-24 tablet by ity of tablet 00:00: 00:00 mouth [place] 00 :00 every 6 Medical (six) Branch hours as needed for Pain (scale 4-6). cyclobenzap 2018-02- No [id number] 10mg Take 1 [facility] rine 10 mg 1-13 02-14 tablet by ity of tablet 00:00: 00:00 mouth 3 [place] 00 :00 (three) Medical times Branch daily. cyclobenzap 2018-02- No [id number] 10mg Take 1 [facility] rine 10 mg 1-13 02-14 tablet by ity of tablet 00:00: 00:00 mouth 3 [place] 00 :00 (three) Medical times Branch daily. azaTHIOprin 2019-0 Yes 150mg QD Take [address] [facility] (IMURAN) 9-14 mg by [facility] mg 12:13: mouth Medical tablet 12 daily. Center dicyclomine 2019-0 Yes 10mg Q.[id number] Take [address] [facility] (BENTYL) 10 9-14 [id number] by mouth 3 [facility] capsule 12:13: 3D (three) Medi bernadine 12 times Center daily. ondansetron 2019-0 Yes 4mg Take [address] (ZOFRAN-ODT 9-14 by mouth [facility] ) 4 MG 12:13: every 8 Medical disintegrat 12 (eight) Cente r ing tablet hours as needed for Nausea. promethazin 2019-0 Yes 25mg Take [address] [facility] 9-14 by mouth [facility] (PHENERGAN) 12:13: every 6 Med ical 25 MG 12 (six) Center tablet hours as needed for Nausea. HYDROcodone 2019-0 Yes 1{tbl} Q.5D Take [address] -acetaminop 9-14 tablet by [facility] yogi (NORCO 12:13: mouth 2 Medi bernadine 7.5-325) [...] Medica l 12 times Center daily. buprenorphi 2019-[address] [facility] ne HCl 9-14 mcg inside [facility] (BELBUCA) 12:13: cheek 2 Medic al 150 mcg 12 (two) Center Film times daily. pantoprazol 2019-0 Yes 40mg QD Take [address] [facility] 9-14 by mouth [facility] (PROTONIX) 12:13: daily. Medic al 40 MG 12 Center tablet mesalamine 2019-0 Yes 1000mg Q.5D Take 1,[address] [facility] (PENTASA) 9-14 mg by [facility] 500 MG CR 12:13: mouth 2 Medic al capsule 12 (two) Center times daily. azaTHIOprin 2019-0 Yes 150mg QD Take [address] [facility] (IMURAN) 9-14 mg by [facility] 50 mg 12:13: mouth Medical tablet 12 daily. Center dicyclomine 2019-0 Yes 10mg Q.[id number] Take [address] [facility] (BENTYL) 10 9-14 [id number] by mouth 3 [facility] MG capsule 12:13: 3D (three) Medi bernadine 12 times Center daily. ondansetron 2019-0 Yes 4mg Take [address] (ZOFRAN-ODT 9-14 by mouth [facility] ) 4 MG 12:13: every 8 Medical disintegrat 12 (eight) Cente r ing tablet hours as needed for Nausea. promethazin 2019-0 Yes 25mg Take [address] [facility] 9-14 by mouth [facility] (PHENERGAN) 12:13: every 6 Med ical 25 MG 12 (six) Center tablet hours as needed for Nausea. HYDROcodone 2019-0 Yes 1{tbl} Q.5D Take [address] -acetaminop 9-14 tablet by [place] [facility] (NORCO 12:13: mouth 2 Medi bernadine 7.5-325) [...] Medica l 12 times Center daily. buprenorphi 2019-[address] [facility] ne HCl 9-14 mcg inside [facility] (BELBUCA) 12:13: cheek 2 Medic al 150 mcg 12 (two) Center Film times daily. pantoprazol 2019-0 Yes 40mg QD Take [address] [facility] 9-14 by mouth [facility] (PROTONIX) 12:13: daily. Medic al 40 MG 12 Center tablet mesalamine 2019-0 Yes 1000mg Q.5D Take 1,[address] [facility] [address] (PENTASA) 9-14 mg by [facility] 500 MG CR 12:13: mouth 2 Medic al capsule 12 (two) Center times daily. azaTHIOprin 2019-0 Yes 150mg QD Take [address] [facility] (IMURAN) 9-14 mg by [facility] 50 mg 12:13: mouth Medical tablet 12 daily. Center dicyclomine 2019-0 Yes 10mg Q.[id number] Take [address] [facility] (BENTYL) 10 9-14 [id number] by mouth 3 [facility] MG capsule 12:13: 3D (three) Medi bernadine 12 times Center daily. ondansetron 2019-0 Yes 4mg Take [address] (ZOFRAN-ODT 9-14 by mouth [facility] ) 4 MG 12:13: every 8 Medical disintegrat 12 (eight) Cente r ing tablet hours as needed for Nausea. promethazin 2019-0 Yes 25mg Take [address] [facility] 9-14 by mouth [facility] (PHENERGAN) 12:13: every 6 Med ical 25 MG 12 (six) Center tablet hours as needed for Nausea. HYDROcodone 2019-0 Yes 1{tbl} Q.5D Take [address] -acetaminop 9-14 tablet by Teofilo radha calix (NORCO 12:13: mouth 2 Medi bernadine [...] Medica l 12 times Center daily. buprenorphi 2019-[address] [facility] ne HCl 9-14 mcg inside [facility] (BELBUCA) 12:13: cheek 2 Medic al 150 mcg 12 (two) Center Film times daily. pantoprazol 2019-0 Yes 40mg QD Take [address] [facility] 9-14 by mouth [facility] (PROTONIX) 12:13: daily. Medic al 40 MG 12 Center tablet mesalamine 2019-0 Yes 1000mg Q.5D Take 1,[address] [facility] [address] (PENTASA) 9-14 mg by [facility] 500 MG CR 12:13: mouth 2 Medic al capsule 12 (two) Center times daily. lidocaine 2019-0 Yes 2{patch Q24H Place [address] (LIDODERM) 9-14 } patches [facility] 5 % patch 00:00: onto the [place] [id number] skin daily Center Remove & Discard patch within 12 hours. May cut if necessary. LORazepam 2019- Yes .5mg Take [address] [facility] [address] (ATIVAN) 9-14 tablet [facility] 0.5 MG 00:00: (0.5 mg Medical tablet 00 total) by Center mouth every night as needed for Anxiety. Max Daily Amount: 0.5 mg lidocaine 2019- Yes 2{patch Q24H Place [address] (LIDODERM) 9-14 } patches [facility] 5 % patch 00:00: onto the [facility] skin daily Center Remove & Discard patch within 12 hours. May cut if necessary. LORazepam Yes .5mg Take [address] [facility] [address] (ATIVAN) 9-14 tablet [facility] 0.5 MG 00:00: (0.5 mg Medical tablet 00 total) by Center mouth every night as needed for Anxiety. Max Daily Amount: 0.5 mg lidocaine Yes 2{patch Q24H Place [address] (LIDODERM) 9-14 } patches [facility] 5 % patch 00:00: onto the [facility] skin daily Center Remove & Discard patch within 12 hours. May cut if necessary. LORazepam Yes .5mg Take [address] [facility] (ATIVAN) 9-14 tablet [facility] 0.5 MG 00:00: (0.5 mg Medical tablet 00 total) by Center mouth every night as needed for Anxiety. Max Daily Amount: 0.5 mg Bactrim DS Bactrim DS 2017- No [facility] 1 tablet Common 08-24 [facility] 00:00: 00:00 - [facility] 00 :00 [facility] Pyridium Pyridium 2017- No [facility] 1 tablet Common 08-24 [facility] 00:00: 00:00 meals - [facility] 00 :00 [facility] hydrOXYzine 2019- No TAKE 1 Uni vers (ATARAX) 25 7-14 TABLET BY it y of mg tablet 00:00: 00:00 MOUTH [place] 00 :00 EVERY 8 Medical HOURS Branch NEEDED FOR ANXIETY hydrOXYzine 2019- No TAKE 1 Uni vers (ATARAX) 25 7-21 02-14 TABLET BY it y of mg tablet 00:00: 00:00 MOUTH [place] 00 :00 EVERY 8 Medical HOURS Branch NEEDED FOR ANXIETY sodium,pota 2016-0 Yes [id number] Please see [facility] 6-16 instructio ity of sulfates 00:00: [facility] (SUPREP 00 provided. Medical BOWEL PREP Branch KIT) 17.5-3.13-1 .6 gram SolR sodium,pota 2016- Yes [id number] Please see [facility] 6-16 instructio ity of sulfates 00:00: [facility] (SUPREP 00 provided. Medical BOWEL PREP Branch KIT) 17.5-3.13-1 .6 gram SolR sodium,pota 2016-0 Yes [id number] Please see [facility] 6-16 instructio ity of sulfates 00:00: [facility] (SUPREP 00 provided. Medical BOWEL PREP Branch KIT) 17.5-3.13-1 .6 gram SolR sodium,pota 2016- Yes [id number] Please see [facility] 6-16 instructio ity of sulfates 00:00: [facility] (SUPREP 00 provided. Medical BOWEL PREP Branch KIT) 17.5-3.13-1 .6 gram SolR sodium,pota 2016-0 Yes [id number] Please see [facility] 6-16 instructio ity of sulfates 00:00: [facility] (SUPREP 00 provided. Medical BOWEL PREP Branch KIT) 17.5-3.13-1 .6 gram SolR sodium,pota 2016-0 Yes [id number] Please see [facility] 616 instructio ity of sulfates 00:00: [facility] (SUPREP 00 provided. Medical BOWEL PREP Branch KIT) 17.5-3.13-1 .6 gram SolR sodium,pota 2016-0 Yes [id number] Please see [facility] 6-16 instructio ity of sulfates 00:00: [facility] (SUPREP 00 provided. Medical BOWEL PREP Branch KIT) 17.5-3.13-1 .6 gram SolR sodium,pota 2016-0 Yes [id number] Please see [facility] 6-16 instructio ity of sulfates 00:00: [facility] (SUPREP 00 provided. Medical BOWEL PREP Branch KIT) 17.5-3.13-1 .6 gram SolR sodium,pota 2016-0 Yes [id number] Please see [facility] 6-16 instructio ity of sulfates 00:00: ns [place] (SUPREP 00 provided. Medical BOWEL PREP Branch KIT) 17.5-3.13-1 .6 gram SolR sodium,pota 2016-0 Yes [id number] Please see [facility] 6-16 instructio ity of sulfates 00:00: ns [place] (SUPREP 00 provided. Medical BOWEL PREP Branch KIT) 17.5-3.13-1 .6 gram SolR sodium,pota 2016-0 Yes [id number] Please see [facility] 6-16 instructio ity of sulfates 00:00: [facility] (SUPREP 00 provided. Medical BOWEL PREP Branch KIT) 17.5-3.13-1 .6 gram SolR sodium,pota 2016-0 Yes [id number] Please see [facility] 6-16 instructio ity of sulfates 00:00: [facility] (SUPREP 00 provided. Medical BOWEL PREP Branch KIT) 17.5-3.13-1 .6 gram SolR sodium,pota 2016-0 Yes [id number] Please see [facility] 6-16 instructio ity of sulfates 00:00: [facility] (SUPREP 00 provided. Medical BOWEL PREP Branch KIT) 17.5-3.13-1 .6 gram SolR sodium,pota 2016-0 Yes [id number] Please see [facility] 6-16 instructio ity of sulfates 00:00: [facility] (SUPREP 00 provided. Medical BOWEL PREP Branch KIT) 17.5-3.13-1 .6 gram SolR sodium,pota 2016-0 Yes [id number] Please see [facility] 6-16 instructio ity of sulfates 00:00: [facility] (SUPREP 00 provided. Medical BOWEL PREP Branch KIT) 17.5-3.13-1 .6 gram SolR sodium,pota 2016-0 Yes [id number] Please see [facility] 6-16 instructio ity of sulfates 00:00: [facility] (SUPREP 00 provided. Medical BOWEL PREP Branch KIT) 17.5-3.13-1 .6 gram SolR sodium,pota 2016-0 Yes [id number] Please see [facility] 6-16 instructio ity of sulfates 00:00: ns [place] (SUPREP 00 provided. Medical BOWEL PREP Branch KIT) 17.5-3.13-1 .6 gram SolR sodium,pota 2016-0 Yes [id number] Please see [facility] 6-16 instructio ity of sulfates 00:00: ns [place] (SUPREP 00 provided. Medical BOWEL PREP Branch KIT) 17.5-3.13-1 .6 gram SolR sodium,pota 2016-0 Yes [id number] Please see [facility] 6-16 instructio ity of sulfates 00:00: ns [place] (SUPREP 00 provided. Medical BOWEL PREP Branch KIT) 17.5-3.13-1 .6 gram SolR sodium,pota 2016-0 Yes [id number] Please see [facility] 6-16 instructio ity of sulfates 00:00: ns [place] (SUPREP 00 provided. Medical BOWEL PREP Branch KIT) 17.5-3.13-1 .6 gram SolR sodium,pota 2016-0 Yes [id number] Please see [facility] 6-16 instructio ity of sulfates 00:00: ns [place] (SUPREP 00 provided. Medical BOWEL PREP Branch KIT) 17.5-3.13-1 .6 gram SolR sodium,pota 2016-0 Yes [id number] Please see [facility] 6-16 instructio ity of sulfates 00:00: ns [place] (SUPREP 00 provided. Medical BOWEL PREP Branch KIT) 17.5-3.13-1 .6 gram SolR sodium,pota 2016-0 Yes [id number] Please see [facility] 6-16 instructio ity of sulfates 00:00: ns [place] (SUPREP 00 provided. Medical BOWEL PREP Branch KIT) 17.5-3.13-1 .6 gram SolR sodium,pota 2016-0 Yes [id number] Please see [facility] 6-16 instructio ity of sulfates 00:00: ns [place] (SUPREP 00 provided. Medical BOWEL PREP Branch KIT) 17.5-3.13-1 .6 gram SolR sodium,pota 2016-0 Yes [id number] Please see [facility] 6-16 instructio ity of sulfates 00:00: [facility] (SUPREP 00 provided. Medical BOWEL PREP Branch KIT) 17.5-3.13-1 .6 gram SolR sodium,pota 2016-0 Yes [id number] Please see [facility] 6-16 instructio ity of sulfates 00:00: [facility] (SUPREP 00 provided. Medical BOWEL PREP Branch KIT) 17.5-3.13-1 .6 gram SolR sodium,pota 2016-0 Yes [id number] Please see [facility] 6-16 instructio ity of sulfates 00:00: [facility] (SUPREP 00 provided. Medical BOWEL PREP Branch KIT) 17.5-3.13-1 .6 gram SolR sodium,pota 2016-0 Yes [id number] Please see [facility] 6-16 instructio ity of sulfates 00:00: [facility] (SUPREP 00 provided. Medical BOWEL PREP Branch KIT) 17.5-3.13-1 .6 gram SolR sodium,pota 2016-0 Yes [id number] Please see [facility] 6-16 instructio ity of sulfates 00:00: [facility] (SUPREP 00 provided. Medical BOWEL PREP Branch KIT) 17.5-3.13-1 .6 gram SolR sodium,pota 2016-0 Yes [id number] Please see [facility] 6-16 instructio ity of sulfates 00:00: [facility] (SUPREP 00 provided. Medical BOWEL PREP Branch KIT) 17.5-3.13-1 .6 gram SolR sodium,pota 2016-0 Yes [id number] Please see [facility] 616 instructio ity of sulfates 00:00: [facility] (SUPREP 00 provided. Medical BOWEL PREP Branch KIT) 17.5-3.13-1 .6 gram SolR sodium,pota 2016-0 Yes [id number] Please see [facility] 6-16 instructio ity of sulfates 00:00: [facility] (SUPREP 00 provided. Medical BOWEL PREP Branch KIT) 17.5-3.13-1 .6 gram SolR sodium,pota 2016-0 Yes [id number] Please see [facility] 6-16 instructio ity of sulfates 00:00: [facility] (SUPREP 00 provided. Medical BOWEL PREP Branch KIT) 17.5-3.13-1 .6 gram SolR sodium,pota 2020- No [id number] Please see [facility] 6-16 04-18 instructio ity of sulfates 00:00: 00:00 ns [place] (SUPREP 00 :00 provided. Medical BOWEL PREP Branch KIT) 17.5-3.13-1 .6 gram SolR buprenorphi 2019- No 15ug Apply 15 U nivers ne 07-08 02-14 mcg to ity of (BUTRANS) 00:00: 00:00 skin every [place] 15 mcg/hour 00 :00 24 Medical PTWK (twenty-fo Branch ur) hours. buprenorphi 2019- No 15ug Apply 15 U nivers ne 5- 02-14 mcg to ity of (BUTRANS) 00:00: 00:00 skin every [place] 15 mcg/hour 00 :00 24 Medical PTWK (twenty-fo Branch ur) hours. ondansetron Yes Univer s (ZOFRAN) 4 5-18 ity of mg tablet 00:00: [place] Medical Branch ondansetron Yes Univer s (ZOFRAN) 4 5-18 ity of mg tablet 00:00: [place] Medical Branch ondansetron 0 Yes Univer s (ZOFRAN) 4 5-18 ity of mg tablet 00:00: [place] [facility] Branch ondansetron 0 Yes Univer s (ZOFRAN) 4 5-18 ity of mg tablet 00:00: [place] [facility] ondansetron [id number] Yes Univer s (ZOFRAN) 4 5-18 ity of mg tablet 00:00: [place] [facility] ondansetron 20160 Yes Univer s (ZOFRAN) 4 5-18 ity of mg tablet 00:00: Medical Branch ondansetron 20160 Yes Univer s (ZOFRAN) 4 5-18 ity of mg tablet 00:00: Medical Branch ondansetron 0 Yes Univer s (ZOFRAN) 4 5-18 ity of mg tablet 00:00: Medical Branch ondansetron 2015-0 Yes Univer s [...] 5-18 ity of mg tablet 00:00: Medical [place] ondansetron 2016-0 Yes Univer s (ZOFRAN) 4 [...] 4 5-18 ity of mg tablet 00:00: [place] 00 Medical Branch ondansetron 0 Yes Univer s (ZOFRAN) 4 5-18 ity of mg tablet 00:00: [place] 00 Medical Branch ondansetron 0 Yes Univer s (ZOFRAN) 4 5-18 ity of mg tablet 00:00: [place] 00 Medical Branch ondansetron 20160 Yes Univer s (ZOFRAN) 4 5-18 ity of mg tablet 00:00: [place] [facility] ondansetron 0 Yes Univer s (ZOFRAN) 4 5-18 ity of mg tablet 00:00: [place] 00 Medical Branch ondansetron 0 Yes Univer s (ZOFRAN) 4 5-18 ity of mg tablet 00:00: [place] 00 Medical Branch ondansetron 0 Yes Univer s (ZOFRAN) 4 5-18 ity of mg tablet 00:00: [place] 00 Medical Branch ondansetron 0 2021- No Unive rs (ZOFRAN) 4 5-18 04-14 ity of mg tablet 00:00: 00:00 [place] 00 :00 Medical Branch LYRICA 75 2020- No Univers mg capsule 06-29-14 ity of 00:00: 00:00 [place] 00 :00 Medical Branch LYRICA 75 2020- No Univers mg capsule 18 02-14 ity of 00:00: 00:00 [place] 00 :00 Medical Branch mesalamine Yes 1000mg Take 2 Uni [...] Medical capsule times Branch daily. mesalamine 2016-0 2021- No 1000mg Take 2 Un matt CR 5 04-18 capsules ity of (PENTASA) 00:00: 00:00 by mouth 4 [place] 500 mg CR 00 :00 (four) Medical capsule times Branch daily. HYDROcodone 2020- No 1{tbl} Take 1 U nivers -acetaminop -17 -14 tablet by it y of hen (NORCO) 00:00: 00:00 mouth 2 [place] 10-325 mg 00 :00 (two) Medical tablet times Branch daily. HYDROcodone 2020- No 1{tbl} Take 1 U nivers -acetaminop 5-17 -14 tablet by it y of hen (NORCO) 00:00: 00:00 mouth 2 [place] 10-325 mg 00 :00 (two) Medical tablet times Branch daily. tamsulosin 2014-02 Yes .4mg Take 1 Cap U nivers (FLOMAX) 0-20 by mouth ity of 0.4 mg 24 00:00: daily. [place] hr capsule [facility] tamsulosin 2014-02 Yes .4mg Take 1 Cap U nivers (FLOMAX) 0-20 by mouth ity of 0.4 mg 24 00:00: daily. [place] hr capsule [facility] Branch tamsulosin 2014-02 Yes .4mg Take 1 Cap U nivers (FLOMAX) 0-20 by mouth ity of 0.4 mg 24 00:00: daily. [place] hr capsule [facility] tamsulosin 2014-02 Yes .4mg Take 1 Cap U nivers (FLOMAX) 0-20 by mouth ity of 0.4 mg 24 00:00: daily. [place] hr capsule [facility] tamsulosin 2014-02 Yes .4mg Take 1 Cap U nivers (FLOMAX) 0-20 by mouth ity of 0.4 mg 24 00:00: daily. [place] hr capsule [facility] Branch tamsulosin 2014-02 Yes .4mg Take 1 Cap U nivers (FLOMAX) 0-20 by mouth ity of 0.4 mg 24 00:00: daily. [place] hr capsule [facility] Branch tamsulosin 2014-02 Yes .4mg Take 1 Cap U nivers (FLOMAX) 0-20 by mouth ity of 0.4 mg 24 00:00: daily. [place] hr capsule [facility] tamsulosin 2014-02 Yes .4mg Take 1 Cap U nivers (FLOMAX) 0-20 by mouth ity of 0.4 mg 24 00:00: daily. [facility] capsule [facility] tamsulosin 2014-02 Yes .4mg Take 1 Cap U nivers (FLOMAX) 0-20 by mouth ity of 0.4 mg 24 00:00: daily. [facility] capsule [facility] tamsulosin 2014-02 Yes .4mg Take 1 Cap U nivers (FLOMAX) 0-20 by mouth ity of 0.4 mg 24 00:00: daily. [facility] capsule [facility] tamsulosin 2014-02 Yes .4mg Take 1 Cap U nivers (FLOMAX) 0-20 by mouth ity of 0.4 mg 24 00:00: daily. [facility] capsule [facility] tamsulosin 2014-02 Yes .4mg Take 1 Cap U nivers (FLOMAX) 0-20 by mouth ity of 0.4 mg 24 00:00: daily. [facility] tamsulosin 2014-02 Yes .4mg Take 1 Cap U nivers (FLOMAX) 0-20 by mouth ity of 0.4 mg 24 00:00: daily. [facility] capsule [facility] tamsulosin 2014-02 Yes .4mg Take 1 Cap U nivers (FLOMAX) 0-20 by mouth ity of 0.4 mg 24 00:00: daily. [facility] capsule [facility] tamsulosin 2014-02 Yes .4mg Take 1 Cap U nivers (FLOMAX) 0-20 by mouth ity of 0.4 mg 24 00:00: daily. [facility] capsule [facility] tamsulosin 2014-02 Yes .4mg Take 1 Cap U nivers (FLOMAX) 0-20 by mouth ity of 0.4 mg 24 00:00: daily. [facility] capsule [facility] tamsulosin 2014-02 Yes .4mg Take 1 Cap U nivers (FLOMAX) 0-20 by mouth ity of 0.4 mg 24 00:00: daily. [facility] capsule [facility] tamsulosin 2014-02 Yes .4mg Take 1 Cap U nivers (FLOMAX) 0-20 by mouth ity of 0.4 mg 24 00:00: daily. [facility] capsule [facility] tamsulosin 2014-02 Yes .4mg Take 1 Cap U nivers (FLOMAX) 0-20 by mouth ity of 0.4 mg 24 00:00: daily. [facility] capsule [facility] tamsulosin 2014-02 Yes .4mg Take 1 Cap U nivers (FLOMAX) 0-20 by mouth ity of 0.4 mg 24 00:00: daily. [place] capsule [facility] tamsulosin 2014-02 Yes .4mg Take 1 Cap U nivers (FLOMAX) 0-20 by mouth ity of 0.4 mg 24 00:00: daily. [facility] capsule [facility] tamsulosin 2014-02 Yes .4mg Take 1 Cap U nivers (FLOMAX) 0-20 by mouth ity of 0.4 mg 24 00:00: daily. [facility] capsule [facility] tamsulosin 2014-02 Yes .4mg Take 1 Cap U nivers (FLOMAX) 0-20 by mouth ity of 0.4 mg 24 00:00: daily. [facility] capsule [facility] tamsulosin 2014-02 Yes .4mg Take 1 Cap U nivers (FLOMAX) 0-20 by mouth ity of 0.4 mg 24 00:00: daily. [facility] capsule [facility] tamsulosin 2014-02 Yes .4mg Take 1 Cap U nivers (FLOMAX) 0-20 by mouth ity of 0.4 mg 24 00:00: daily. [facility] capsule [facility] tamsulosin 2014-02 Yes .4mg Take 1 Cap U nivers (FLOMAX) 0-20 by mouth ity of 0.4 mg 24 00:00: daily. [facility] capsule [facility] tamsulosin 2014-02 Yes .4mg Take 1 Cap U nivers (FLOMAX) 0-20 by mouth ity of 0.4 mg 24 00:00: daily. [facility] capsule [facility] tamsulosin 2014-02 Yes .4mg Take 1 Cap [facility] nivers (FLOMAX) 0-20 by mouth ity of 0.4 mg 24 00:00: daily. [facility] capsule [facility] tamsulosin 2014-02- No .4mg Take 1 [facility] (FLOMAX) 0-20 - by mouth ity of 0.4 mg 24 00:00: 00:00 daily. [facility] capsule 00 : [facility] Aimovig 140 Aimovig 140 No Aimovig MG/ML MG/ML 140 MG/ML Pentasa 500 Pentasa 500 No 2{capsu QID Pentasa MG MG les} 500 MG Bentyl 20 Bentyl 20 No 1{table TID Bentyl 20 MG MG t} MG Zofran 4 MG Zofran 4 MG No 2{table BID Zofran 4 ts} MG Imuran Imuran No Imuran Oxybutynin Oxybutynin No 1{table BID Oxybutynin Chloride 5 Chloride 5 t} Chloride 5 MG MG MG Amitriptyli Amitriptyli No 1{table QD Amitriptyl ne HCl 50 ne HCl 50 t} ine HCl 50 MG MG MG Toprol XL Toprol XL No 1{table QD Toprol XL 25 MG 25 MG t} 25 MG Ibuprofen Ibuprofen No TID Ibuprofen 600 MG 600 MG 600 MG Moose Moose No 1{table TID Moose 7.5-325 MG 7.5-325 MG t_as_ne 7.5-325 MG eded} Gabapentin Gabapentin No 1{capsu QD Gabapentin 400 MG 400 MG le} 400 MG Moose Moose Yes Levy 1 tablet Common Hernandez as needed [facility] Amitriptyli Amitriptyli Yes Levy 1 tablet Common ne HCl ne HCl [facility] Zofran Zofran Yes Levy 2 tablets Comm on [facility] Pentasa Pentasa Yes Levy 2 capsules C ommon [facility] Lyrica Lyrica Yes Levy 1 capsule Comm on Hernandez 1 to 3 Spirit hours - [facility] bedtime in [facility] Lyrica 75 Lyrica 75 No Lyrica 75 MG MG MG Remicade Remicade No Remicade Losartan Losartan No 1{table QD Losartan Potassium Potassium t} Potassium 50 MG 50 MG 50 MG busPIRone busPIRone No 1{table BID busPIRone HCl 15 MG HCl 15 MG t} HCl 15 MG Aimovig 140 Aimovig 140 No Aimovig MG/ML MG/ML 140 MG/ML Pentasa 500 Pentasa 500 No 2{capsu QID Pentasa MG MG les} 500 MG Bentyl 20 Bentyl 20 No 1{table TID Bentyl 20 MG MG t} MG Zofran 4 MG Zofran 4 MG No 2{table BID Zofran 4 ts} MG Imuran Imuran No Imuran Oxybutynin Oxybutynin No 1{table BID Oxybutynin Chloride 5 Chloride 5 t} Chloride 5 MG MG MG Amitriptyli Amitriptyli No 1{table QD Amitriptyl ne HCl 50 ne HCl 50 t} ine HCl 50 MG MG MG Toprol XL Toprol XL No 1{table QD Toprol XL 25 MG 25 MG t} 25 MG Ibuprofen Ibuprofen No TID Ibuprofen 600 MG 600 MG 600 MG Moose Moose No 1{table TID Moose 7.5-325 MG 7.5-325 MG t_as_ne 7.5-325 MG eded} Gabapentin Gabapentin No 1{capsu QD Gabapentin 400 MG 400 MG le} 400 MG Oxybutynin Oxybutynin No 1{table BID Oxybutynin Chloride 5 Chloride 5 t} Chloride 5 MG MG MG Gabapentin Gabapentin No 1{capsu QD Gabapentin 400 MG 400 MG le} 400 MG Moose Moose No 1{table TID Moose 7.5-325 MG 7.5-325 MG t_as_ne 7.5-325 MG eded} Pentasa 500 Pentasa 500 No 2{capsu QID Pentasa MG MG les} 500 MG busPIRone busPIRone No 1{table BID busPIRone HCl 15 MG HCl 15 MG t} HCl 15 MG Bentyl 20 Bentyl 20 No 1{table TID Bentyl 20 MG MG t} MG Ibuprofen Ibuprofen No TID Ibuprofen 600 MG 600 MG 600 MG Zofran 4 MG Zofran 4 MG No 2{table BID Zofran 4 ts} MG Remicade Remicade No Remicade Losartan Losartan No 1{table QD Losartan Potassium Potassium t} Potassium 50 MG 50 MG 50 MG Amitriptyli Amitriptyli No 1{table QD Amitriptyl ne HCl 50 ne HCl 50 t} ine HCl 50 MG MG MG Imuran Imuran No Imuran Aimovig 140 Aimovig 140 No Aimovig MG/ML MG/ML 140 MG/ML Lyrica 75 Lyrica 75 No Lyrica 75 MG MG MG Toprol XL Toprol XL No 1{table QD Toprol XL 25 MG 25 MG t} 25 MG Oxybutynin Oxybutynin No 1{table BID Oxybutynin Chloride 5 Chloride 5 t} Chloride 5 MG MG MG Gabapentin Gabapentin No 1{capsu QD Gabapentin 400 MG 400 MG le} 400 MG Moose Moose No 1{table TID Moose 7.5-325 MG 7.5-325 MG t_as_ne 7.5-325 MG eded} Pentasa 500 Pentasa 500 No 2{capsu QID Pentasa MG MG les} 500 MG busPIRone busPIRone No 1{table BID busPIRone HCl 15 MG HCl 15 MG t} HCl 15 MG Bentyl 20 Bentyl 20 No 1{table TID Bentyl 20 MG MG t} MG Ibuprofen Ibuprofen No TID Ibuprofen 600 MG 600 MG 600 MG Zofran 4 MG Zofran 4 MG No 2{table BID Zofran 4 ts} MG Remicade Remicade No Remicade Losartan Losartan No 1{table QD Losartan Potassium Potassium t} Potassium 50 MG 50 MG 50 MG Amitriptyli Amitriptyli No 1{table QD Amitriptyl ne HCl 50 ne HCl 50 t} ine HCl 50 MG MG MG Imuran Imuran No Imuran Aimovig 140 Aimovig 140 No Aimovig MG/ML MG/ML 140 MG/ML Lyrica 75 Lyrica 75 No Lyrica 75 MG MG MG Toprol XL Toprol XL No 1{table QD Toprol XL 25 MG 25 MG t} 25 MG Lyrica 75 Lyrica 75 No Lyrica 75 MG MG MG Remicade Remicade No Remicade Losartan Losartan No 1{table QD Losartan Potassium Potassium t} Potassium 50 MG 50 MG 50 MG busPIRone busPIRone No 1{table BID busPIRone HCl 15 MG HCl 15 MG t} HCl 15 MG Immunizations Ordered Filled Immunization Date Status Comments Sour e Immunization Name Name Twinrix (hep a/hep 2015-07-29 Completed Univer sity of b) 00:00:00 [facility] Twinrix (hep a/hep 2015-07-29 Completed Univer sity of b) 00:00:00 [facility] Twinrix (hep a/hep 2015-07-29 Completed Univer sity of b) 00:00:00 [facility] Twinrix (hep a/hep 2015-07-29 Completed Univer sity of b) 00:00:00 [facility] Twinrix (hep a/hep 2015-07-29 Completed Univer sity of b) 00:00:00 [facility] Twinrix (hep a/hep 2015-07-29 Completed Univer sity of b) 00:00:00 [facility] Twinrix (hep a/hep 2015-07-29 Completed Univer sity of b) 00:00:00 [facility] Twinrix (hep a/hep 2015-07-29 Completed Univer sity of b) 00:00:00 [facility] Twinrix (hep a/hep 2015-07-29 Completed Univer sity of b) 00:00:00 [facility] Twinrix (hep a/hep 2015-07-29 Completed Univer sity of b) 00:00:00 [facility] Twinrix (hep a/hep 2015-07-29 Completed Univer sity of b) 00:00:00 [facility] Twinrix (hep a/hep 2015-07-29 Completed Univer sity of b) 00:00:00 [facility] Twinrix (hep a/hep 2015-07-29 Completed Univer sity of b) 00:00:00 [facility] Twinrix (hep a/hep 2015-07-29 Completed Univer sity of b) 00:00:00 [facility] Twinrix (hep a/hep 2015-07-29 Completed Univer sity of b) 00:00:00 [facility] Twinrix (hep a/hep 2015-07-29 Completed Univer sity of b) 00:00:00 [facility] Twinrix (hep a/hep 2015-07-29 Completed Univer sity of b) 00:00:00 [facility] Twinrix (hep a/hep 2015-07-29 Completed Univer sity of b) 00:00:00 [facility] Twinrix (hep a/hep 2015-07-29 Completed Univer sity of b) 00:00:00 [facility] Twinrix (hep a/hep 2015-07-29 Completed Univer sity of b) 00:00:00 [facility] Twinrix (hep a/hep 2015-07-29 Completed Univer sity of b) 00:00:00 [facility] Twinrix (hep a/hep 2015-07-29 Completed Univer sity of b) 00:00:00 [facility] Twinrix (hep a/hep 2015-07-29 Completed Univer sity of b) 00:00:00 [facility] Twinrix (hep a/hep 2015-07-29 Completed Univer sity of b) 00:00:00 [facility] Twinrix (hep a/hep 2015-07-29 Completed Univer sity of b) 00:00:00 [facility] Twinrix (hep a/hep 2015-07-29 Completed Univer sity of b) 00:00:00 [facility] Twinrix (hep a/hep 2015-07-29 Completed Univer sity of b) 00:00:00 [facility] Twinrix (hep a/hep 2015-07-29 Completed Univer sity of b) 00:00:00 [facility] Twinrix (hep a/hep 2015-07-29 Completed Univer sity of b) 00:00:00 [facility] Twinrix (hep a/hep 2015-07-29 Completed Univer sity of b) 00:00:00 [facility] Twinrix (hep a/hep 2015-07-29 Completed Univer sity of b) 00:00:00 [facility] Twinrix (hep a/hep 2015-07-29 Completed Univer sity of b) 00:00:00 [facility] Twinrix (hep a/hep 2015-07-29 Completed Univer sity of b) 00:00:00 [facility] Twinrix (hep a/hep 2015-07-29 Completed Univer sity of b) 00:00:00 [facility] Twinrix (hep a/hep 2015-07-29 Completed Univer sity of b) 00:00:00 [facility] Twinrix (hep a/hep 2015-07-29 Completed Univer sity of b) 00:00:00 [facility] Twinrix (hep a/hep 2015-07-29 Completed Univer sity of b) 00:00:00 [facility] Twinrix (hep a/hep 2015-07-29 Completed Univer sity of b) 00:00:00 [facility] Twinrix (hep a/hep 2015-07-29 Completed Univer sity of b) 00:00:00 [facility] Twinrix (hep a/hep 2015-07-29 Completed Univer sity of b) 00:00:00 [facility] Twinrix (hep a/hep 2015-07-29 Completed Univer sity of b) 00:00:00 [facility] Twinrix (hep a/hep 2015-07-29 Completed Univer sity of b) 00:00:00 [facility] Twinrix (hep a/hep 2015-07-29 Completed Univer sity of b) 00:00:00 [facility] Twinrix (hep a/hep 2015-07-29 Completed Univer sity of b) 00:00:00 [facility] Twinrix (hep a/hep 2015-07-29 Completed Univer sity of b) 00:00:00 [facility] Twinrix (hep a/hep 2015-07-29 Completed Univer sity of b) 00:00:00 [facility] Twinrix (hep a/hep 2015-07-29 Completed Univer sity of b) 00:00:00 [facility] Twinrix (hep a/hep 2015-07-29 Completed Univer sity of b) 00:00:00 [facility] Twinrix (hep a/hep 2015-07-29 Completed Univer sity of b) 00:00:00 [facility] Twinrix (hep a/hep 2015-07-29 Completed Univer sity of b) 00:00:00 [facility] Twinrix (hep a/hep 2015-07-29 Completed Univer sity of b) 00:00:00 [facility] Twinrix (hep a/hep 2015-07-29 Completed Univer sity of b) 00:00:00 [facility] Twinrix (hep a/hep 2015-07-29 Completed Univer sity of b) 00:00:00 [facility] Twinrix (hep a/hep 2015-07-29 Completed Univer sity of b) 00:00:00 [facility] Twinrix (hep a/hep 2015-07-29 Completed Univer sity of b) 00:00:00 [facility] Twinrix (hep a/hep 2015-07-29 Completed Univer sity of b) 00:00:00 [facility] Twinrix (hep a/hep 2015-07-29 Completed Univer sity of b) 00:00:00 [facility] Twinrix (hep a/hep 2015-07-29 Completed Univer sity of b) 00:00:00 [facility] Twinrix (hep a/hep 2015-07-29 Completed Univer sity of b) 00:00:00 [facility] Twinrix (hep a/hep 2015-07-29 Completed Univer sity of b) 00:00:00 [facility] Twinrix (hep a/hep 2015-07-29 Completed Univer sity of b) 00:00:00 [facility] Twinrix (hep a/hep 2015-07-29 Completed Univer sity of b) 00:00:00 [facility] Twinrix (hep a/hep 2015-07-29 Completed Univer sity of b) 00:00:00 [facility] Twinrix (hep a/hep 2015-07-29 Completed Univer sity of b) 00:00:00 [facility] Twinrix (hep a/hep 2015-07-29 Completed Univer sity of b) 00:00:00 [facility] Twinrix (hep a/hep 2015-07-29 Completed Univer sity of b) 00:00:00 [facility] Twinrix (hep a/hep 2015-07-29 Completed Univer sity of b) 00:00:00 [facility] Twinrix (hep a/hep 2015-07-29 Completed Univer sity of b) 00:00:00 [facility] Twinrix (hep a/hep 2015-07-29 Completed Univer sity of b) 00:00:00 [facility] Twinrix (hep a/hep 2015-07-29 Completed Univer sity of b) 00:00:00 [facility] Twinrix (hep a/hep 2015-07-29 Completed Univer sity of b) 00:00:00 [facility] Twinrix (hep a/hep 2015-07-29 Completed Univer sity of b) 00:00:00 [facility] Twinrix (hep a/hep 2015-07-29 Completed Univer sity of b) 00:00:00 [facility] Twinrix (hep a/hep 2015-07-29 Completed Univer charleeny of b) 00:00:00 [facility] Influenza Virus 2015-06-29 Completed Universit y of Vaccine Quad IM 3+ 00:00:00 [facility] Influenza Virus 2015-06-29 Completed Universit y of Vaccine Quad IM 3+ 00:00:00 [facility] Influenza Virus 2015-06-29 Completed Universit y of Vaccine Quad IM 3+ 00:00:00 [facility] Influenza Virus 2015-06-29 Completed Universit y of Vaccine Quad IM 3+ 00:00:00 [facility] Influenza Virus 2015-06-29 Completed Universit y of Vaccine Quad IM 3+ 00:00:00 [facility] Influenza Virus 2015-06-29 Completed Universit y of Vaccine Quad IM 3+ 00:00:00 [facility] Influenza Virus 2015-06-29 Completed Universit y of Vaccine Quad IM 3+ 00:00:00 [facility] Influenza Virus 2015-06-29 Completed Universit y of Vaccine Quad IM 3+ 00:00:00 [facility] Influenza Virus 2015-06-29 Completed Universit y of Vaccine Quad IM 3+ 00:00:00 [facility] Influenza Virus 2015-06-29 Completed Universit y of Vaccine Quad IM 3+ 00:00:00 [facility] Influenza Virus 2015-06-29 Completed Universit y of Vaccine Quad IM 3+ 00:00:00 [facility] Influenza Virus 2015-06-29 Completed Universit y of Vaccine Quad IM 3+ 00:00:00 [facility] Influenza Virus 2015-06-29 Completed Universit y of Vaccine Quad IM 3+ 00:00:00 [facility] Influenza Virus 2015-06-29 Completed Universit y of Vaccine Quad IM 3+ 00:00:00 [facility] Influenza Virus 2015-06-29 Completed Universit y of Vaccine Quad IM 3+ 00:00:00 [facility] Influenza Virus 2015-06-29 Completed Universit y of Vaccine Quad IM 3+ 00:00:00 [facility] Influenza Virus 2015-06-29 Completed Universit y of Vaccine Quad IM 3+ 00:00:00 [facility] Influenza Virus 2015-06-29 Completed Universit y of Vaccine Quad IM 3+ 00:00:00 [facility] Influenza Virus 2015-06-29 Completed Universit y of Vaccine Quad IM 3+ 00:00:00 [facility] Influenza Virus 2015-06-29 Completed Universit y of Vaccine Quad IM 3+ 00:00:00 [facility] Influenza Virus 2015-06-29 Completed Universit y of Vaccine Quad IM 3+ 00:00:00 [facility] Influenza Virus 2015-06-29 Completed Universit y of Vaccine Quad IM 3+ 00:00:00 [facility] Influenza Virus 2015-06-29 Completed Universit y of Vaccine Quad IM 3+ 00:00:00 [facility] Influenza Virus 2015-06-29 Completed Universit y of Vaccine Quad IM 3+ 00:00:00 [facility] Influenza Virus 2015-06-29 Completed Universit y of Vaccine Quad IM 3+ 00:00:00 [facility] Influenza Virus 2015-06-29 Completed Universit y of Vaccine Quad IM 3+ 00:00:00 [facility] Influenza Virus 2015-06-29 Completed Universit y of Vaccine Quad IM 3+ 00:00:00 [facility] Influenza Virus 2015-06-29 Completed Universit y of Vaccine Quad IM 3+ 00:00:00 [facility] Influenza Virus 2015-06-29 Completed Universit y of Vaccine Quad IM 3+ 00:00:00 [facility] Influenza Virus 2015-06-29 Completed Universit y of Vaccine Quad IM 3+ 00:00:00 [facility] Influenza Virus 2015-06-29 Completed Universit y of Vaccine Quad IM 3+ 00:00:00 [facility] Influenza Virus 2015-06-29 Completed Universit y of Vaccine Quad IM 3+ 00:00:00 [facility] Influenza Virus 2015-06-29 Completed Universit y of Vaccine Quad IM 3+ 00:00:00 [facility] Influenza Virus 2015-06-29 Completed Universit y of Vaccine Quad IM 3+ 00:00:00 [facility] Influenza Virus 2015-06-29 Completed Universit y of Vaccine Quad IM 3+ 00:00:00 [facility] Influenza Virus 2015-06-29 Completed Universit y of Vaccine Quad IM 3+ 00:00:00 [facility] Influenza Virus 2015-06-29 Completed Universit y of Vaccine Quad IM 3+ 00:00:00 [facility] Influenza Virus 2015-06-29 Completed Universit y of Vaccine Quad IM 3+ 00:00:00 [facility] Influenza Virus 2015-06-29 Completed Universit y of Vaccine Quad IM 3+ 00:00:00 [facility] Influenza Virus 2015-06-29 Completed Universit y of Vaccine Quad IM 3+ 00:00:00 [facility] Influenza Virus 2015-06-29 Completed Universit y of Vaccine Quad IM 3+ 00:00:00 [facility] Influenza Virus 2015-06-29 Completed Universit y of Vaccine Quad IM 3+ 00:00:00 [facility] Influenza Virus 2015-06-29 Completed Universit y of Vaccine Quad IM 3+ 00:00:00 [facility] Influenza Virus 2015-06-29 Completed Universit y of Vaccine Quad IM 3+ 00:00:00 [facility] Influenza Virus 2015-06-29 Completed Universit y of Vaccine Quad IM 3+ 00:00:00 [facility] Influenza Virus 2015-06-29 Completed Universit y of Vaccine Quad IM 3+ 00:00:00 [facility] Influenza Virus 2015-06-29 Completed Universit y of Vaccine Quad IM 3+ 00:00:00 [facility] Influenza Virus 2015-06-29 Completed Universit y of Vaccine Quad IM 3+ 00:00:00 [facility] Influenza Virus 2015-06-29 Completed Universit y of Vaccine Quad IM 3+ 00:00:00 [facility] Influenza Virus 2015-06-29 Completed Universit y of Vaccine Quad IM 3+ 00:00:00 [facility] Influenza Virus 2015-06-29 Completed Universit y of Vaccine Quad IM 3+ 00:00:00 [facility] Influenza Virus 2015-06-29 Completed Universit y of Vaccine Quad IM 3+ 00:00:00 [facility] Influenza Virus 2015-06-29 Completed Universit y of Vaccine Quad IM 3+ 00:00:00 [facility] Influenza Virus 2015-06-29 Completed Universit y of Vaccine Quad IM 3+ 00:00:00 [facility] Influenza Virus 2015-06-29 Completed Universit y of Vaccine Quad IM 3+ 00:00:00 [facility] Influenza Virus 2015-06-29 Completed Universit y of Vaccine Quad IM 3+ 00:00:00 [facility] Influenza Virus 2015-06-29 Completed Universit y of Vaccine Quad IM 3+ 00:00:00 [facility] Influenza Virus 2015-06-29 Completed Universit y of Vaccine Quad IM 3+ 00:00:00 [facility] Influenza Virus 2015-06-29 Completed Universit y of Vaccine Quad IM 3+ 00:00:00 [facility] Influenza Virus 2015-06-29 Completed Universit y of Vaccine Quad IM 3+ 00:00:00 [facility] Influenza Virus 2015-06-29 Completed Universit y of Vaccine Quad IM 3+ 00:00:00 [facility] Influenza Virus 2015-06-29 Completed Universit y of Vaccine Quad IM 3+ 00:00:00 [facility] Influenza Virus 2015-06-29 Completed Universit y of Vaccine Quad IM 3+ 00:00:00 [facility] Influenza Virus 2015-06-29 Completed Universit y of Vaccine Quad IM 3+ 00:00:00 [facility] Influenza Virus 2015-06-29 Completed Universit y of Vaccine Quad IM 3+ 00:00:00 [facility] Influenza Virus 2015-06-29 Completed Universit y of Vaccine Quad IM 3+ 00:00:00 [facility] Influenza Virus 2015-06-29 Completed Universit y of Vaccine Quad IM 3+ 00:00:00 [facility] Influenza Virus 2015-06-29 Completed Universit y of Vaccine Quad IM 3+ 00:00:00 [facility] Influenza Virus 2015-06-29 Completed Universit y of Vaccine Quad IM 3+ 00:00:00 [facility] Influenza Virus 2015-06-29 Completed Universit y of Vaccine Quad IM 3+ 00:00:00 [facility] Influenza Virus 2015-06-29 Completed Universit y of Vaccine Quad IM 3+ 00:00:00 [facility] Influenza Virus 2015-06-29 Completed Universit y of Vaccine Quad IM 3+ 00:00:00 [facility] Influenza Virus 2015-06-29 Completed Universit y of Vaccine Quad IM 3+ 00:00:00 [facility] Influenza Virus 2015-06-29 Completed Universit y of Vaccine Quad IM 3+ 00:00:00 [facility] Twinrix (hep a/hep 2015-06-28 Completed Univer sity of b) 00:00:00 [facility] Twinrix (hep a/hep 2015-06-28 Completed Univer sity of b) 00:00:00 [facility] Twinrix (hep a/hep 2015-06-28 Completed Univer sity of b) 00:00:00 [facility] Twinrix (hep a/hep 2015-06-28 Completed Univer sity of b) 00:00:00 [facility] Twinrix (hep a/hep 2015-06-28 Completed Univer sity of b) 00:00:00 [facility] Twinrix (hep a/hep 2015-06-28 Completed Univer sity of b) 00:00:00 [facility] Twinrix (hep a/hep 2015-06-28 Completed Univer sity of b) 00:00:00 [facility] Twinrix (hep a/hep 2015-06-28 Completed Univer sity of b) 00:00:00 [facility] Twinrix (hep a/hep 2015-06-28 Completed Univer sity of b) 00:00:00 [facility] Twinrix (hep a/hep 2015-06-28 Completed Univer sity of b) 00:00:00 [facility] Twinrix (hep a/hep 2015-06-28 Completed Univer sity of b) 00:00:00 [facility] Twinrix (hep a/hep 2015-06-28 Completed Univer sity of b) 00:00:00 [facility] Twinrix (hep a/hep 2015-06-28 Completed Univer sity of b) 00:00:00 [facility] Twinrix (hep a/hep 2015-06-28 Completed Univer sity of b) 00:00:00 [facility] Twinrix (hep a/hep 2015-06-28 Completed Univer sity of b) 00:00:00 [facility] Twinrix (hep a/hep 2015-06-28 Completed Univer sity of b) 00:00:00 [facility] Twinrix (hep a/hep 2015-06-28 Completed Univer sity of b) 00:00:00 [facility] Twinrix (hep a/hep 2015-06-28 Completed Univer sity of b) 00:00:00 [facility] Twinrix (hep a/hep 2015-06-28 Completed Univer sity of b) 00:00:00 [facility] Twinrix (hep a/hep 2015-06-28 Completed Univer sity of b) 00:00:00 [facility] Twinrix (hep a/hep 2015-06-28 Completed Univer sity of b) 00:00:00 [facility] Twinrix (hep a/hep 2015-06-28 Completed Univer sity of b) 00:00:00 [facility] Twinrix (hep a/hep 2015-06-28 Completed Univer sity of b) 00:00:00 [facility] Twinrix (hep a/hep 2015-06-28 Completed Univer sity of b) 00:00:00 [facility] Twinrix (hep a/hep 2015-06-28 Completed Univer sity of b) 00:00:00 [facility] Twinrix (hep a/hep 2015-06-28 Completed Univer sity of b) 00:00:00 [facility] Twinrix (hep a/hep 2015-06-28 Completed Univer sity of b) 00:00:00 [facility] Twinrix (hep a/hep 2015-06-28 Completed Univer sity of b) 00:00:00 [facility] Twinrix (hep a/hep 2015-06-28 Completed Univer sity of b) 00:00:00 [facility] Twinrix (hep a/hep 2015-06-28 Completed Univer sity of b) 00:00:00 [facility] Twinrix (hep a/hep 2015-06-28 Completed Univer sity of b) 00:00:00 [facility] Twinrix (hep a/hep 2015-06-28 Completed Univer sity of b) 00:00:00 [facility] Twinrix (hep a/hep 2015-06-28 Completed Univer sity of b) 00:00:00 [facility] Twinrix (hep a/hep 2015-06-28 Completed Univer sity of b) 00:00:00 [facility] Twinrix (hep a/hep 2015-06-28 Completed Univer sity of b) 00:00:00 [facility] Twinrix (hep a/hep 2015-06-28 Completed Univer sity of b) 00:00:00 [facility] Twinrix (hep a/hep 2015-06-28 Completed Univer sity of b) 00:00:00 [facility] Twinrix (hep a/hep 2015-06-28 Completed Univer sity of b) 00:00:00 [facility] Twinrix (hep a/hep 2015-06-28 Completed Univer sity of b) 00:00:00 [facility] (hep a/hep 2015-06-28 Completed Univer sity of b) 00:00:00 [facility] (hep a/hep 2015-06-28 Completed Univer sity of b) 00:00:00 [facility] (hep a/hep 2015-06-28 Completed Univer sity of b) 00:00:00 [facility] (hep a/hep 2015-06-28 Completed Univer sity of b) 00:00:00 [facility] (hep a/hep 2015-06-28 Completed Univer sity of b) 00:00:00 [facility] (hep a/hep 2015-06-28 Completed Univer sity of b) 00:00:00 [facility] (hep a/hep 2015-06-28 Completed Univer sity of b) 00:00:00 [facility] (hep a/hep 2015-06-28 Completed Univer sity of b) 00:00:00 [facility] (hep a/hep 2015-06-28 Completed Univer sity of b) 00:00:00 [facility] (hep a/hep 2015-06-28 Completed Un[facility] sity of b) 00:00:00 [facility] (hep a/hep 2015-06-28 Completed Un[facility] sity of b) 00:00:00 [facility] (hep a/hep 2015-06-28 Completed Univer sity of b) 00:00:00 [facility] (hep a/hep 2015-06-28 Completed Univer sity of b) 00:00:00 [facility] (hep a/hep 2015-06-28 Completed Univer sity of b) 00:00:00 [facility] (hep a/hep 2015-06-28 Completed Un[facility] sity of b) 00:00:00 [facility] (hep a/hep 2015-06-28 Completed Un[facility] sity of b) 00:00:00 [facility] (hep a/hep 2015-06-28 Completed Un[facility] sity of b) 00:00:00 [facility] (hep a/hep 2015-06-28 Completed Un[facility]ity of b) 00:00:00 [facility] (hep a/hep 2015-06-28 Completed [facility]ity of b) 00:00:00 [facility] (hep a/hep 2015-06-28 Completed Un[facility] sity of b) 00:00:00 [facility] (hep a/hep 2015-06-28 Completed [facility] sity of b) 00:00:00 [facility] (hep a/hep 2015-06-28 Completed [facility] sity of b) 00:00:00 [facility] (hep a/hep 2015-06-28 Completed Un[facility] sity of b) 00:00:00 [facility] (hep a/hep 2015-06-28 Completed [facility] sity of b) 00:00:00 [facility] (hep a/hep 2015-06-28 Completed [facility] sity of b) 00:00:00 [facility] (hep a/hep 2015-06-28 Completed Un[facility]ity of b) 00:00:00 [facility] (hep a/hep 2015-06-28 Completed Un[facility] sity of b) 00:00:00 [facility] (hep a/hep 2015-06-28 Completed [facility] sity of b) 00:00:00 [facility] (hep a/hep 2015-06-28 Completed [facility] s[facility] of b) 00:00:00 [facility] (hep a/hep 2015-06-28 Completed Un[facility] sity of b) 00:00:00 [facility] (hep a/hep 2015-06-28 Completed Univer sity of b) 00:00:00 [facility] (hep a/hep 2015-06-28 Completed Un[facility] sity of b) 00:00:00 [facility] (hep a/hep 2015-06-28 Completed Univer sity of b) 00:00:00 [facility] (hep a/hep 2015-06-28 Completed Univer sity of b) 00:00:00 [facility] (hep a/hep 2015-06-28 Completed Univer sity of b) 00:00:00 [facility] Vital Signs Vital Name Observation Time Observation Value Comments Source Systolic blood 2022-05-28 03:15:00 97 mm[Hg] Univer sity of pressure [facility] Diastolic blood 2022-05-28 03:15:00 75 mm[Hg] Unive rsity of [facility] Heart rate 2022-05-28 03:15:00 82 /min [facility] Respiratory rate 2022-05-28 03:15:00 16 /min [facility] in 2022-05-28 03:15:00 98 /[facility] by [facility] Pulse oximetry Branch Body temperature 2022-05-28 00:28:00 36.78 Briseida [facility] Body height 2022-05-28 00:28:00 170.2 cm [facility] Body weight 2022-05-28 00:28:00 72.576 kg [facility] BMI 2022-05-28 00:28:00 25.06 kg/m2 [facility] Systolic blood 2022-02-12 18:53:00 114 mm[Hg] Univer sity of pressure [facility] Diastolic blood 2022-02-12 18:53:00 78 mm[Hg] Unive rsity of pressure [facility] Heart rate 2022-02-12 18:48:00 89 /min [facility] Body temperature 2022-02-12 18:48:00 36.67 Briseida Univ ersity of [facility] Respiratory rate 2022-02-12 18:48:00 18 /min [facility] Body height 2022-02-12 18:48:00 170.2 cm [facility] Body weight 2022-02-12 18:48:00 72.576 kg [facility] BMI 2022-02-12 18:48:00 25.06 kg/m2 [facility] Oxygen saturation in 2022-02-12 18:48:00 96 /min [facility] Arterial blood by [facility] Pulse oximetry Branch Systolic blood 2021-11-05 23:35:00 158 mm[Hg] [facility] Diastolic blood 2021-11-05 23:35:00 96 mm[Hg] [facility]ity [facility] Heart rate 2021-11-05 23:35:00 72 /min [facility] Body temperature 2021-11-05 23:35:00 36.67 Briseida [facility] Respiratory rate 2021-11-05 23:35:00 12 /min [facility] Oxygen saturation in 2021-11-05 23:35:00 100 /min [facility] Arterial blood by [facility] Pulse oximetry Branch Body height 2021-11-05 18:55:00 170.2 cm [facility] Body weight 2021-11-05 18:55:00 72.576 kg [facility] BMI 2021-11-05 18:55:00 25.06 kg/m2 [facility] Systolic blood 2021-11-05 18:38:00 85 mm[Hg] [facility]ity of [facility] Diastolic blood 2021-11-05 18:38:00 64 mm[Hg] Unive rsity of pressure [facility] Heart rate 2021-11-05 18:03:00 100 /min [facility] Body temperature 2021-11-05 18:03:00 36.78 Briseida [facility] Respiratory rate 2021-11-05 18:03:00 20 /min [facility] Body height 2021-11-05 18:03:00 170.2 cm [facility] Body weight 2021-11-05 18:03:00 72.576 kg [facility] BMI 2021-11-05 18:03:00 25.06 kg/m2 [facility] Oxygen saturation in 2021-11-05 18:03:00 100 /min [facility] by [facility] P[facility]xim[facility] Systolic blood 2021-10-29 12:00:00 148 mm[Hg] Univer sity of pressure [facility] Diastolic blood 2021-10-29 12:00:00 58 mm[Hg] Unive rsity of pressure [facility] Heart rate 2021-10-29 12:00:00 92 /min [facility] Respiratory rate 2021-10-29 12:00:00 12 /min Univ ersity [facility] Oxygen saturation in 2021-10-29 12:00:00 100 /min [facility] Arterial blood by [facility] Pulse oximetry Branch Body temperature 2021-10-29 11:12:00 36.11 Briseida Univ ersity of [facility] Body height 2021-10-29 11:12:00 170.2 cm [facility] Body weight 2021-10-29 11:12:00 72.576 kg [facility] BMI 2021-10-29 11:12:00 25.06 kg/m2 [facility] Systolic blood 2021-10-21 02:21:45 130 mm[Hg] Univer sity of pressure [facility] Diastolic blood 2021-10-21 02:21:45 68 mm[Hg] Unive rsity of pressure [facility] Body temperature 2021-10-21 02:21:45 37.22 Briseida Univ [facility] Heart rate 2021-10-21 00:30:00 84 /min [facility] Oxygen saturation in 2021-10-21 00:30:00 98 /min [facility] Arterial blood by [facility] Pulse oximetry Branch Respiratory rate 2021-10-20 23:09:00 18 /min Univ ersity of [facility] Body height 2021-10-20 21:10:00 170.2 cm [facility] Body weight 2021-10-20 21:10:00 72.576 kg [facility] BMI 2021-10-20 21:10:00 25.06 kg/m2 [facility] height 2021-10-12 09:30:00 63 [in_i] [facility] 2021-10-12 09:30:00 162 [lb_av] [facility] temperature 2021-10-12 09:30:00 98.3 [degF] [facility] bmi 2021-10-12 09:30:00 28.69 kg/m2 [facility] oximetry 2021-10-12 09:30:00 98 % [facility] respiratory rate 2021-10-12 09:30:00 16 /min [facility] blood pressure 2021-10-12 09:30:00 132 mm[Hg] [facility] systolic [facility] blood pressure 2021-10-12 09:30:00 68 mm[Hg] Common [facility] diastolic [facility] Systolic blood 2021-08-26 18:00:00 157 mm[Hg] Univer [facility]ity of [facility] Diastolic blood 2021-08-26 18:00:00 97 mm[Hg] Unive rsity of [facility] Heart rate 2021-08-26 18:00:00 87 /min [facility] Respiratory rate 2021-08-26 18:00:00 18 /min [facility] O[facility] saturation in 2021-08-26 18:00:00 97 /min [facility] Arterial blood by [facility] Pulse oximetry Branch Body temperature 2021-08-26 13:42:00 37.11 Briseida [facility] Body weight 2021-08-26 13:42:00 [facility] BMI 2021-08-26 13:42:00 24.28 kg/m2 [facility] Systolic blood 2020-12-12 16:16:00 97 mm[Hg] Univer [facility]ity of [facility] Diastolic blood 2020-12-12 16:16:00 67 mm[Hg] [facility]ive [facility]ity of [facility] Heart rate 2020-12-12 16:16:00 97 /min [facility] Body temperature 2020-12-12 16:16:00 37.67 Briseida [facility] Respiratory rate 2020-12-12 16:16:00 18 /min [facility] Oxygen saturation in 2020-12-12 16:16:00 93 /min [facility] Arterial blood by [place] [employer] [facility] Pulse oximetry Branch Body weight 2020-12-12 08:45:00 95.391 kg [facility] BMI 2020-12-12 08:45:00 32.94 kg/m2 [facility] Body height 2020-12-05 22:36:00 170.2 cm [facility] Systolic blood 2020-07-14 22:03:00 156 mm[Hg] Univer sity of pressure [facility] Diastolic blood 2020-07-14 22:03:00 93 mm[Hg] Unive rsity of pressure [facility] Heart rate 2020-07-14 22:03:00 84 /min [facility] Respiratory rate 2020-07-14 22:03:00 20 /min [facility] Oxygen saturation in 2020-07-14 22:03:00 98 /min [facility] Arterial blood by [facility] Pulse oximetry Branch Body temperature 2020-07-14 03:11:00 36.67 Briseida Univ [facility] Body weight 2020-07-13 20:13:00 83.898 kg [facility] BMI 2020-07-13 20:13:00 28.97 kg/m2 [facility] Systolic blood 2020-07-13 15:43:00 119 mm[Hg] Univer sity of pressure [facility] Diastolic blood 2020-07-13 15:43:00 77 mm[Hg] Unive rsity of pressure [facility] Heart rate 2020-07-13 15:43:00 68 /min [facility] Oxygen saturation in 2020-07-13 15:43:00 95 /min [facility] Arterial blood by [facility] Pulse oximetry Branch Systolic blood 2020-07-07 04:00:00 142 mm[Hg] Univer sity of pressure [facility] Diastolic blood 2020-07-07 04:00:00 94 mm[Hg] Unive rsity of pressure [facility] Heart rate 2020-07-07 04:00:00 73 /min [facility] Respiratory rate 2020-07-07 04:00:00 13 /min [facility] Oxygen saturation in 2020-07-07 04:00:00 99 /min [facility] Arterial blood by [facility] Pulse oximetry Branch Body temperature 2020-07-07 00:04:24 36.83 Briseida Univ ersity [facility] Body weight 2020-07-06 23:44:00 86.183 kg [facility] BMI 2020-07-06 23:44:00 29.76 kg/m2 [facility] Systolic blood 2020-07-04 21:16:00 142 mm[Hg] Univer sity of pressure [facility] Diastolic blood 2020-07-04 21:16:00 93 mm[Hg] Unive rsity of pressure [facility] Heart rate 2020-07-04 21:16:00 72 /min [facility] Respiratory rate 2020-07-04 21:16:00 18 /min [facility] Oxygen saturation in 2020-07-04 21:16:00 97 /min [facility] Arterial blood by [facility] Pulse oximetry Branch Body temperature 2020-07-04 17:14:00 36.89 Briseida Univ ersity [facility] Body weight 2020-07-04 17:14:00 86.183 kg [facility] BMI 2020-07-04 17:14:00 29.76 kg/m2 [facility] Systolic blood 2020-06-28 20:07:00 110 mm[Hg] Univer sity of pressure [facility] Diastolic blood 2020-06-28 20:07:00 67 mm[Hg] Unive rsity of pressure [facility] Heart rate 2020-06-28 20:07:00 57 /min [facility] Body temperature 2020-06-28 20:07:00 36.83 Briseida [facility] Respiratory rate 2020-06-28 20:07:00 16 /min Univ ersity [facility] Oxygen saturation in 2020-06-28 20:07:00 99 /min [facility] Arterial blood by [facility] Pulse oximetry Branch Body height 2020-06-27 03:02:00 170.2 cm [facility] Body weight 2020-06-27 03:02:00 83.008 kg [facility] BMI 2020-06-27 03:02:00 28.66 kg/m2 [facility] Systolic blood 2020-06-02 16:17:00 133 mm[Hg] Univer sity of pressure [facility] Diastolic blood 2020-06-02 16:17:00 89 mm[Hg] Unive rsity of [facility] Heart rate 2020-06-02 16:17:00 72 /min [facility] Body temperature 2020-06-02 16:17:00 36.17 Briseida Univ [facility] Respiratory rate 2020-06-02 16:17:00 20 /min [facility] Oxygen saturation in 2020-06-02 16:17:00 96 /min [facility] Arterial blood by [place] [employer] [facility] Pulse oximetry Branch Body height 2020-05-30 22:29:00 170.2 cm [facility] Body weight 2020-05-30 22:29:00 81.647 kg [facility] BMI 2020-05-30 22:29:00 28.19 kg/m2 [facility] Systolic blood 2020-05-27 02:05:00 118 mm[Hg] Univer sity of pressure [facility] Diastolic blood 2020-05-27 02:05:00 73 mm[Hg] Unive rsity of pressure [facility] Heart rate 2020-05-27 02:05:00 80 /min [facility] Respiratory rate 2020-05-27 02:05:00 10 /min [facility] Oxygen saturation in 2020-05-27 02:05:00 93 /min [facility] Arterial blood by [employer] [facility] Pulse oximetry Branch Body temperature 2020-05-26 23:07:00 37.22 Briseida Univ [facility] Body height 2020-05-26 23:07:00 170.2 cm [facility] Body weight 2020-05-26 23:07:00 88.451 kg [facility] BMI 2020-05-26 23:07:00 30.54 kg/m2 [facility] Systolic blood 2020-05-13 22:00:00 106 mm[Hg] Univer sity of pressure [facility] Diastolic blood 2020-05-13 22:00:00 57 mm[Hg] Unive rsity of pressure [facility] Heart rate 2020-05-13 22:00:00 54 /min [facility] Respiratory rate 2020-05-13 22:00:00 16 /min Univ [facility] Oxygen saturation in 2020-05-13 22:00:00 100 /min [facility] Arterial blood by [place] [employer] [facility] Pulse oximetry Branch Body temperature 2020-05-13 16:33:00 37.56 Briseida [facility] Body weight 2020-05-13 16:33:00 77.111 kg [facility] BMI 2020-05-13 16:33:00 26.63 kg/m2 [facility] Systolic blood 2020-05-13 15:28:00 135 mm[Hg] Univer sity of pressure [facility] Diastolic blood 2020-05-13 15:28:00 88 mm[Hg] Unive rsity of pressure [facility] Heart rate 2020-05-13 15:28:00 80 /min [facility] Body temperature 2020-05-13 15:28:00 36.67 Briseida [facility] Respiratory rate 2020-05-13 15:28:00 18 /min Univ [facility] Body height 2020-05-13 15:28:00 170.2 cm [facility] Body weight 2020-05-13 15:28:00 77.111 kg [facility] BMI 2020-05-13 15:28:00 26.63 kg/m2 [facility] Oxygen saturation in 2020-05-13 15:28:00 99 /min [facility] Arterial blood by [place] [employer] [facility] Pulse oxim[facility] Branch Systolic blood 2020-03-23 15:48:00 130 mm[Hg] Univer sity of pressure [facility] Diastolic blood 2020-03-23 15:48:00 89 mm[Hg] Unive rsity of pressure [facility] Heart rate 2020-03-23 15:48:00 95 /min [facility] Body height 2020-03-23 15:48:00 170.2 cm [facility] Body weight 2020-03-23 15:48:00 83.008 kg [facility] BMI 2020-03-23 15:48:00 28.66 kg/m2 [facility]i ty of [facility] Oxygen saturation in 2020-03-23 15:48:00 100 /min [facility] Arterial blood by [facility] Pulse oximetry Branch Systolic blood 2019-12-08 18:48:47 99 mm[Hg] Univer sity of pressure [facility] Diastolic blood 2019-12-08 18:48:47 70 mm[Hg] Unive rsity of pressure [facility] Heart rate 2019-12-08 18:48:47 63 /min [facility] Respiratory rate 2019-12-08 18:48:47 18 /min Univ ersity of [facility] Oxygen saturation in 2019-12-08 18:48:47 100 /min [facility] Arterial blood by [facility] Pulse oximetry Branch Body temperature 2019-12-08 16:07:00 37 Briseida [facility] Body height 2019-12-08 16:07:00 170.2 cm [facility] Body weight 2019-12-08 16:07:00 81.647 kg [facility] BMI 2019-12-08 16:07:00 28.19 kg/m2 [facility] Systolic blood 2019-12-08 15:11:00 119 mm[Hg] Univer sity of pressure [facility] Diastolic blood 2019-12-08 15:11:00 80 mm[Hg] Unive rsity of pressure [facility] Heart rate 2019-12-08 15:11:00 83 /min [facility] Body temperature 2019-12-08 15:11:00 36.44 Briseida [facility] Respiratory rate 2019-12-08 15:11:00 18 /min Univ [facility] Body weight 2019-12-08 15:11:00 82.827 kg [facility] BMI 2019-12-08 15:11:00 28.60 kg/m2 [facility] Procedures Procedure Date / Time Performing Clinician Source Performed CT ABDOMEN PELVIS WO 2022-05-28 01:32:42 Nabil Conway [facility] CONTRAST [facility] COMP. METABOLIC PANEL 2022-05-28 01:01:00 Nabil Conway [facility] ([id number]) [facility] CBC WITH DIFF 2022-05-28 01:01:00 [facility] URINALYSIS 2022-05-28 01:01:00 [facility] CONSENT/REFUSAL FOR 2022-05-28 00:18:54 Doctor Unassigned, [facility] DIAGNOSIS AND TREATMENT [facility] XR CHEST 2 2022-02-12 19:22:00 Shireen Raza [facility] URINALYSIS 2021-11-05 20:20:00 Torey Kay [facility] MAGNESIUM 2021-11-05 19:47:00 Torey Kay [facility] TROPONIN I 2021-11-05 19:47:00 Torey Kay [facility] COMP. METABOLIC PANEL 2021-11-05 19:47:00 Torey Kay Joanie [facility] ([id number]) [facility] CBC WITH DIFF 2021-11-05 19:47:00 Torey Kay [facility] XR CHEST 1 2021-11-05 19:36:08 Torey Kay [facility] CONSENT/REFUSAL FOR 2021-11-05 18:50:56 Doctor Unassigned, [facility] POCT MOLECULAR FLU 2021-11-05 18:20:00 Unknown, Attending [facility] POCT MOLECULAR STREP 2021-11-05 18:08:00 Unknown, [facility] EKG-12 LEAD 2021-10-29 12:47:59 Charles Templeton [facility] CT CHEST PULMONARY 2021-10-29 11:57:27 Charles Templeton [facility] ANGIOGRAM Medical Branch COVID-19 (ID NOW RAPID 2021-10-29 11:38:00 Charles Templeton [facility] TESTING) Medical Branch LIPASE 2021-10-29 11:35:00 Charles Templeton [facility] TROPONIN I 2021-10-29 11:35:00 Charles Templeton [facility] COMP. METABOLIC PANEL 2021-10-29 11:35:00 Jareth Mooreland [facility] ([id number]) Medical Branch CBC WITH DIFF 2021-10-29 11:35:00 Charles Templeton [facility] PROTHROMBIN TIME / INR 2021-10-29 11:35:00 Charles Templeton [facility] ACTIVATED PARTIAL 2021-10-29 11:35:00 Charles Templeton [facility] N-TERMINAL PRO-BNP 2021-10-29 11:35:00 Charles Templeton [facility] CONSENT/REFUSAL FOR 2021-10-29 11:05:40 Doctor Georgia [facility] DIAGNOSIS AND TREATMENT [facility] URINALYSIS 2021-10-21 00:48:00 Katherine Guerrero [facility] CT ANGIOGRAM 2021-10-21 00:27:00 Cesar Katherine [facility] ABDOMEN/PELVIS [facility] COMP. METABOLIC PANEL 2021-10-20 22:22:00 Katherine Guerrero [facility] ([id number]) Medical Branch CBC WITH DIFF 2021-10-20 22:22:00 Cesar Katherine [facility] PROTHROMBIN TIME / INR 2021-10-20 22:22:00 Katherine Guerrero [facility] ACTIVATED PARTIAL 2021-10-20 22:22:00 Cesar [facility] CONSENT/REFUSAL FOR 2021-10-20 20:49:49 Doctor [facility] DIAGNOSIS AND TREATMENT [facility] AUTHORIZATION FOR RELEASE 2021-09-15 05:01:00 Doctor [place], [facility] ABDOMEN PELVIS W 2021-08-26 16:31:09 Torey Kay [facility] CONTRAST [facility] URINE DRUG (IMMUNOASSAY) 2021-08-26 15:26:00 Torey Kay [facility] SCREEN URINALYSIS 2021-08-26 15:26:00 Torey Kay [facility] XR CHEST 1 VW 2021-08-26 14:33:00 Torey Kay [facility] BLOOD CULTURE SCREEN 2021-08-26 14:21:00 Torey Kay [facility] BLOOD CULTURE SCREEN 2021-08-26 14:15:00 Torey Kay [facility] LIPASE 2021-08-26 14:15:00 Torey Kay [facility] MAGNESIUM 2021-08-26 14:15:00 Torey Kay Joanie [facility] TROPONIN I 2021-08-26 14:15:00 Torey Kay Joanie [facility] COMP. METABOLIC PANEL 2021-08-26 14:15:00 Torey Kay [facility] ([id number]) [facility] CBC WITH DIFF 2021-08-26 14:15:00 Torey Kay [facility] AC PANEL 21 + LACTIC ACID 2021-08-26 14:14:00 Torey Kay [facility] CONSENT/REFUSAL FOR 2021-08-26 13:50:45 Doctor Unassigned, [facility] DIAGNOSIS AND TREATMENT [facility] PHOSPHORUS 2020-12-12 10:06:00 Sandrita [facility] MAGNESIUM 2020-12-12 10:06:00 Sandrita [facility] BASIC METABOLIC PANEL 2020-12-12 10:06:00 Nehemias Pollock Rene [facility] (NA, K, CL, CO2, GLUCOSE, Medica l Branch BUN, CREATININE, CA) VANCOMYCIN RANDOM LEVEL 2020-12-11 14:30:00 Nasir [facility] OSMOLALITY URINE 2020-12-11 10:41:00 Nicole Sanchez [facility] CREATININE, URINE RANDOM 2020-12-11 10:39:00 Nicole [facility] POTASSIUM, URINE RANDOM 2020-12-11 10:39:00 [facility] SODI[facility], URINE RANDOM 2020-12-11 10:39:00 Nicole Sanchez [facility] PHOSPHORUS 2020-12-11 08:50:00 Sandrita [facility] URIC ACID 2020-12-11 08:50:00 Nicole Sanchez [facility] MAGNESIUM 2020-12-11 08:50:00 Sandrita [facility] OSMOLALITY, SERUM OR 2020-12-11 08:50:00 Nicole Sanchez [facility] BASIC METABOLIC PANEL 2020-12-11 08:50:00 [facility] (NA, K, CL, CO2, GLUCOSE, Medica l Branch BUN, CREATININE, CA) CBC WITH DIFF 2020-12-11 08:50:00 Janeth [facility] URINALYSIS 2020-12-10 20:31:00 Janeth [facility] URINE CULTURE 2020-12-10 20:31:00 Janeth [facility] BLOOD CULTURE SCREEN 2020-12-10 17:58:00 Nasir Fowler [facility] BLOOD CULTURE SCREEN 2020-12-10 17:51:00 Nasir Fowler [facility] PHOSPHORUS 2020-12-10 17:50:00 Zenaida Rodrigez [facility] BASIC METABOLIC PANEL 2020-12-10 17:50:00 Nicole Sanchez [facility] (NA, K, CL, CO2, GLUCOSE, Medica l Branch BUN, CREATININE, CA) CBC WITH DIFF 2020-12-10 17:49:00 Janeth [facility] XR CHEST 1 VW 2020-12-10 17:21:04 Janeth [facility] VANCOMYCIN TROUGH 2020-12-10 14:44:00 Sandrita [facility] PHOSPHORUS 2020-12-10 10:29:00 Sandrita [facility] MAGNESIUM 2020-12-10 10:29:00 Sandrita [facility] BASIC METABOLIC PANEL 2020-12-10 10:29:00 [facility] (NA, K, CL, CO2, GLUCOSE, Medica l Branch BUN, CREATININE, CA) BASIC METABOLIC PANEL 2020-12-10 00:50:00 Nicole Sanchez [facility] (NA, K, CL, CO2, GLUCOSE, Medica l Branch BUN, CREATININE, CA) VANCOMYCIN TROUGH 2020-12-09 19:02:00 Sandrita [facility] PHOSPHORUS 2020-12-09 09:58:00 Sandrita [facility] MAGNESIUM 2020-12-09 09:58:00 Sandrita [facility] BASIC METABOLIC PANEL 2020-12-09 09:58:00 Sandrita [facility] (NA, K, CL, CO2, GLUCOSE, Medica l Branch BUN, CREATININE, CA) CT ABDOMEN PELVIS W 2020-12-08 17:35:25 Lesley [facility] PHOSPHORUS 2020-12-08 09:38:00 Sandrita [facility] MAGNESIUM 2020-12-08 09:38:00 Sandrita [facility] BASIC METABOLIC PANEL 2020-12-08 09:38:00 Sandrita [facility] (NA, K, CL, CO2, GLUCOSE, Medica l Branch BUN, CREATININE, CA) VANCOMYCIN TROUGH 2020-12-08 06:35:00 Sandrita [facility] TRANSTHORACIC ECHO (TTE) 2020-12-07 18:35:00 Nasir Fowler [facility] MAGNESIUM 2020-12-07 09:59:00 [facility] BASIC METABOLIC PANEL 2020-12-07 09:59:00 [facility] (NA, K, CL, CO2, GLUCOSE, Medica l Branch BUN, CREATININE, CA) CBC WITH DIFF 2020-12-07 09:59:00 [facility] BASIC METABOLIC PANEL 2020-12-07 02:15:00 [facility] (NA, K, CL, CO2, GLUCOSE, Medica l Branch BUN, CREATININE, CA) MAGNESIUM 2020-12-06 15:50:00 [place] [facility] BASIC METABOLIC PANEL 2020-12-06 15:50:00 [facility] (NA, K, CL, CO2, GLUCOSE, Medica l Branch BUN, CREATININE, CA) CBC WITH DIFF 2020-12-06 15:50:00 [facility] MAGNESIUM 2020-12-05 22:29:00 [facility] BASIC METABOLIC PANEL 2020-12-05 22:29:00 Alecia Eagle [facility] (NA, K, CL, CO2, GLUCOSE, Medica l Branch BUN, CREATININE, CA) CT HEAD WO CONTRAST 2020-12-05 20:11:36 Alecia Eagle [facility] POCT GLUCOSE(AGE >30DAYS) 2020-12-05 19:44:00 Alecia Eagle [facility] POCT TEST 2020-12-05 18:53:00 Alecia Eagle [facility] URINE DRUG (IMMUNOASSAY) 2020-12-05 18:49:00 [facility] Medical [facility] [address] SCREEN URINALYSIS 2020-12-05 18:49:00 Alecia Eagle [facility] URINE CULTURE 2020-12-05 18:49:00 Alecia Eagle [facility] EXTRA TUBE LT. BLUE 2020-12-05 18:49:00 Alecia Eagle [facility] XR CHEST 1 VW 2020-12-05 18:44:56 Alecia Eagle [facility] COVID-19 (ID NOW RAPID 2020-12-05 18:39:00 Alecia Eagle [facility] TESTING) Medical Branch LAB ONLY COVID 2020-12-05 18:39:00 Alecia Eagle [facility] INTERPRETATION [facility] BLOOD CULTURE SCREEN 2020-12-05 18:35:00 [facility] LIPASE 2020-12-05 18:35:00 Alecia Eagle [facility] MAGNESIUM 2020-12-05 18:35:00 Alecia Eagle [facility] TROPONIN I 2020-12-05 18:35:00 Alecia Eagle [facility] THYROID STIMULATING 2020-12-05 18:35:00 Alecia Eagle [facility] HORMONE [facility] COMP. METABOLIC PANEL 2020-12-05 18:35:00 Alecia Eagle [facility] ([id number]) [facility] CBC WITH DIFF 2020-12-05 18:35:00 Alecia Eagle [facility] LACTIC ACID WHOLE BLOOD 2020-12-05 18:34:00 Alecia Eagle [facility] AC PANEL 20 + LACTIC ACID 2020-12-05 18:34:00 Alecia Eagle [facility] HB ECG ROUTINE & RHYTHM 2020-12-05 18:24:21 Alecia Eagle [facility] PHYSICIAN ORDERS 2020-09-09 05:01:00 Doctor Unassigned, [facility] CBC WITH DIFF 2020-08-09 17:14:00 [facility]IN[facility] 2020-08-09 17:14:00 Luisa [facility] RHEUMATOID FACTOR 2020-08-09 17:14:00 [facility]isa [facility] C-REACTIVE PROTEIN 2020-08-09 17:14:00 Leigh Moran [facility] COMP. METABOLIC PANEL 2020-08-09 17:14:00 Leigh Moran [facility] ([id number]) Medical Branch SEDIMENTATION RATE 2020-08-09 17:14:00 Leigh Moran [facility] ANTI-SSB(LA) 2020-08-09 17:14:00 Leigh Moran [facility] ADC OR LEXX ONLY - RPR 2020-08-09 17:14:00 Leigh Moran Un [facility] HIV 1/2 AG-AB WITH REFLEX 2020-08-09 17:14:00 Leigh Moran Un [facility] ASSIGNMENT OF BENEFITS 2020-08-09 16:41:17 Doctor Unassigned, [facility] [facility] [place] BODY FLUID DIRECT COUNT 2020-07-14 20:10:00 Hansel Kennedy [facility] CSF CULTURE 2020-07-14 20:10:00 Hansel Kennedy [facility] CEREBROSPINAL FLUID 2020-07-14 20:09:00 Hansel Kennedy [facility] PROTEIN [facility] CEREBROSPINAL FLUID 2020-07-14 20:09:00 Hansel Kennedy [facility] GLUCOSE [facility] EXTRA TUBE CSF 2020-07-14 20:09:00 Hansel Kennedy [facility] MENINGITIS/ENCEPHALITIS 2020-07-14 20:09:00 Hansel Kennedy [facility] PANEL BY PCR [facility] POCT GLUCOSE (AUTOMATED) 2020-07-14 14:55:00 Christina Roque [facility] MAGNESIUM 2020-07-14 13:11:00 Hansel Kennedy [facility] PHOSPHORUS 2020-07-14 13:10:00 Jyothi Francis [facility] XR CHEST 1 VW 2020-07-14 13:06:38 Hansel Kennedy [facility] URINALYSIS 2020-07-14 09:32:00 Bhaskar Reyna [facility] COVID-19 (ID NOW RAPID 2020-07-14 09:25:00 Axel Bhaskar B [facility] TESTING) Medical Branch C-REACTIVE PROTEIN 2020-07-14 01:10:00 Bhaskar Reyna [facility] HEPATIC FUNCTION PANEL 2020-07-14 01:10:00 Bhaskar Reyna [facility] ([id number]) (ALB,T.PRO,BILI Medical Branch T,BU/BC,ALT,AST,ALK PHOS) BASIC METABOLIC PANEL 2020-07-14 01:10:00 Axel Bhaskar B [facility] (NA, K, CL, CO2, GLUCOSE, Medica l Branch BUN, CREATININE, CA) SEDIMENTATION RATE 2020-07-14 01:10:00 Bhaskar Reyna [facility] CBC WITH DIFF 2020-07-14 01:10:00 Bhaskar Reyna [facility] AUTHORIZATION FOR RELEASE 2020-07-08 05:01:00 Doctor Unabeverly, [facility] REFERR[facility]- 2020-07-07 05:01:00 Doctor [place], [facility] REQUEST/RESPONSE [facility] CBC WITH DIFF 2020-07-07 03:16:00 Alecia Eagle [facility] NOTICE OF PRIVACY 2020-07-06 23:35:30 Doctor Georgia, [facility] PRACTICES [facility] CONSENT/REFUSAL FOR 2020-07-06 23:35:07 Doctor [place], [facility] DIAGNOSIS AND TREATMENT [facility] CT HEAD WO CONTRAST 2020-07-04 19:42:39 Lety [facility] LIPASE 2020-07-04 18:56:00 Lety Noriega [facility] COMP. METABOLIC PANEL 2020-07-04 18:56:00 Lety Noriega [facility] ([id number]) Medical Branch CBC WITH DIFF 2020-07-04 18:56:00 Lety Noriega [facility] URINALYSIS 2020-07-04 18:56:00 Lety Noriega [facility] CONSENT/REFUSAL FOR 2020-07-04 17:04:54 Doctor Unassigned, [facility] DIAGNOSIS AND TREATMENT [facility] TROPONIN I 2020-06-27 16:14:00 Michael [facility] o f [facility] MR BRAIN WO CONTRAST 2020-06-27 10:20:11 Jose Cintron [facility] COVID-19 (ID NOW RAPID 2020-06-26 22:32:00 Ruby, [facility] TESTING) [facility] CT ANGIOGRAM HEAD 2020-06-26 22:14:19 Ruby, [facility] CT ANGIOGRAM NECK 2020-06-26 22:14:19 Tung [facility] CT HEAD WO CONTRAST 2020-06-26 22:02:20 Tung Sabrina [facility] URINALYSIS 2020-06-26 21:28:00 Tung [facility] XR CHEST 1 VW 2020-06-26 20:27:04 [facility] TROPONIN I 2020-06-26 20:24:00 [facility] HEPATIC FUNCTION PANEL 2020-06-26 20:24:00 Ruby, [facility] ([id number]) (ALB,T.PRO,BILI [facility] T,BU/BC,ALT,AST,ALK PHOS) BASIC METABOLIC PANEL 2020-06-26 20:24:00 Ruby, [facility] (NA, K, CL, CO2, GLUCOSE, Medica l Branch BUN, CREATININE, CA) SEDIMENTATION RATE 2020-06-26 20:24:00 [facility] CBC WITH DIFF 2020-06-26 20:24:00 [facility] HB ECG ROUTINE & RHYTHM 2020-06-26 20:16:57 Sabrina Ruby Uni [facility] CONSENT/REFUSAL FOR 2020-06-26 20:02:52 Doctor Unassigned, [facility] DIAGNOSIS AND TREATMENT [facility] COMP. METABOLIC PANEL 2020-06-01 09:54:00 Zenaida Rodrigez [facility] ([id number]) Medical Branch BASIC METABOLIC PANEL 2020-05-31 14:36:00 Cade Hernadez [facility] (NA, K, CL, CO2, GLUCOSE, Medica l Branch BUN, CREATININE, CA) CBC WITH DIFF 2020-05-31 12:26:00 Ad Remy [facility] CT ABDOMEN PELVIS W WO 2020-05-30 20:49:43 Katherine Guerrero [facility] CONTRAST [facility] BLOOD CULTURE SCREEN 2020-05-30 20:16:00 Katherine Guerrero [facility] LACTIC ACID WHOLE BLOOD 2020-05-30 20:15:00 Katherine [facility] URINALYSIS 2020-05-30 20:14:00 Katherine Guerrero [facility] HEPATIC FUNCTION PANEL 2020-05-30 20:13:00 Katherine Guerrero [facility] ([id number]) (ALB,T.PRO,BILI Medical Branch T,BU/BC,ALT,AST,ALK PHOS) BASIC METABOLIC PANEL 2020-05-30 20:13:00 Katherine Guerrero [facility] (NA, K, CL, CO2, GLUCOSE, Medica l Branch BUN, CREATININE, CA) CBC WITH DIFF 2020-05-30 20:13:00 Katherine Guerrero [facility] PROTHROMBIN TIME / INR 2020-05-30 20:13:00 Katherine Guerrero [facility] ACTIVATED PARTIAL 2020-05-30 20:13:00 Katherine Guerrero [facility] THRLAS [facility] Branch COVID-19 (ID NOW RAPID 2020-05-30 20:13:00 Katherine Guerrero [facility] TESTING) Medical Branch LAB ONLY COVID 2020-05-30 20:13:00 Katherine Guerrero [facility] INTERPRETATION [facility] BLOOD CULTURE SCREEN 2020-05-30 20:09:00 Katherine Guerrero [facility] CONSENT/REFUSAL FOR 2020-05-30 19:22:16 Doctor Georgia [facility] DIAGNOSIS AND TREATMENT [facility] URINALYSIS 2020-05-27 00:16:00 Umm Mares [facility] HEPATIC FUNCTION PANEL 2020-05-26 23:25:00 Umm Mares [facility] ([id number]) (ALB,T.PRO,BILI Medical Branch T,BU/BC,ALT,AST,ALK PHOS) BASIC METABOLIC PANEL 2020-05-26 23:25:00 Umm Mares [facility] (NA, K, CL, CO2, GLUCOSE, Medica l Branch BUN, CREATININE, CA) CBC WITH DIFF 2020-05-26 23:25:00 Umm Mares [facility] CONSENT/REFUSAL FOR 2020-05-26 22:59:39 Doctor Georgia [facility] URINALYSIS 2020-05-13 18:34:00 Dottie Troncoso [facility] CT ABDOMEN PELVIS W 2020-05-13 17:26:18 Dottie Troncoso [facility] CONTRAST [facility] LIPASE 2020-05-13 16:47:00 Dottie Troncoso [facility] HEPATIC FUNCTION PANEL 2020-05-13 16:47:00 Dottie Troncoso [facility] ([id number]) ([facility] [place] T,BU/BC,ALT,AST,ALK PHOS) BASIC METABOLIC PANEL 2020-05-13 16:47:00 Dottie Troncoso [facility] (NA, K, CL, CO2, GLUCOSE, Medica l Branch BUN, CREATININE, CA) CBC WITH DIFF 2020-05-13 16:47:00 Dottie Torncoso [facility] NOTICE OF PRIVACY 2020-05-13 16:27:55 Doctor Georgia [facility] PRACTICES [facility] CONSENT/REFUSAL FOR 2020-05-13 16:23:10 Doctor Georgia [facility] DIAGNOSIS AND TREATMENT [facility] [place] EXTERNAL PROVIDER RECORDS 2019-12-10 05:01:00 Doctor Unassdudley, [facility] US ABDOMEN LIMITED 2019-12-08 18:04:34 Lesley Bee [facility] [place] XR CHEST 1 VW 2019-12-08 17:33:32 Lesley Bee [facility] CT ABDOMEN PELVIS WO 2019-12-08 16:24:35 Lesley Bee [facility] CONTRAST Medical Branch COMP. METABOLIC PANEL 2019-12-08 16:15:00 Lesley Bee [facility] ([id number]) Medical Branch CBC WITH DIFF 2019-12-08 16:15:00 Lesley Bee [facility] URINALYSIS 2019-12-08 16:13:00 Lesley Bee [facility] POCT TEST 2019-12-08 16:12:00 Lesley Bee [facility] NOTICE OF PRIVACY 2019-12-08 15:46:34 Doctor Unassdudley, [facility] PRACTICES [facility] CONSENT/REFUSAL FOR 2019-12-08 15:46:19 Doctor Unabeverly, [facility] DIAGNOSIS AND TREATMENT [facility] POCT URINALYSIS AUTO 2019-12-08 15:09:00 Abhijit Mcgowan [facility] PHYSICIAN CERTIFICATION 2019-09-29 05:01:00 Doctor Georgia, [facility] STATEMENT [facility] AGREEMENTS AUTHORIZATIONS 2019-03-28 06:01:00 Doctor Georgia, [facility] AND IRREVOCABLE [facility] ASSIGNMENTS (FORM 2001) Plan of Care Planned Activity Planned Date Details Comments Source Future Scheduled 2023-10-26 Lipid panel (procedure) [facility] Test 00:00:00 [code = 40319312] Medical Ce nter Future Scheduled 2021-10-13 INFLUENZA VACCINE (#1) [facility] 00:00:00 [code = INFLUENZA Medical Ce nter VACCINE (#1)] Future Scheduled 1996-05-19 Screening for malignant [facility] Test 00:00:00 neoplasm of cervix Medical C enter (procedure) [code = 158779355] Future Scheduled 1994-05-19 DTAP/TDAP/TD VACCINES [facility] [...] [facility] 00:[facility]:00 [code = CT Colonography [facility] (combo)] Future Scheduled 1975 Screening for malignant [facility] Test 00:00:00 neoplasm of colon Medical Ce nter (procedure) [code = 053697342] Future Scheduled 1975 Screening for malignant [facility] Test 00:00:00 neoplasm of colon Medical Ce nter (procedure) [code = 786256409] Future Scheduled 1975 Screening for malignant [facility] Test 00:00:00 neoplasm of colon Medical Ce nter (procedure) [code = 173833804] Future Scheduled 1975 Screening for malignant [facility] Test 00:00:00 neoplasm of colon Medical Ce nter (procedure) [code = 099494918] Future Scheduled 1975 Sigmoidoscopy [code = [facility] 00:[facility]00 S[facility]oscopy] Medical Cente r Encounters Start End Encounter Admission Attending Care Care Encounter Source Date/Time Date/Time Type Type Clinicians Facility Department ID 2021-10-24 [facility] [id number] Common 13:29:00 [id number] [facility] 2021-09-[address] [facility] [id number] Common 14:12:01 [id number] [facility] 2021-03-[address] [facility] [id number] Common 13:01:40 [facility] [id number] [facility] 2021-03-09 Outpatient Hernandez, [facility] [id number] Common 13:01:30 Levy [id number] [facility] 2020-12-12 Emergency [facility] [id number] Univers 22:28:34 ity [facility] 2020-12-12 Emergency [facility] [id number] Univers 21:17:57 ity of [facility] 2020-12-12 Emergency [facility] [id number] Univers 20:44:10 ity of [facility] 2020-12-12 Emergency [facility] [id number] Univers 13:38:38 ity of [facility] 2020-12-12 Emergency [facility] [id number] Univers 12:59:09 ity of [facility] 2020-12-12 Emergency [facility] [id number] Univers 10:04:40 ity of [facility] 2020-12-11 Emergency [facility] [id number] Univers 01:01:21 ity [facility] 2022-05-27 2022-05-27 Emergency X [facility] ERT [id number] Univers 19:35:00 22:34:00 NABIL stefany [facility] 2022-05-27 2022-05-27 Emergency [facility] [id number] Univers 19:35:00 22:34:00 Nabil KRISTA [id number] i ty of [place] [id number] [facility] [id number] [facility] 084 Branch 2022-05-27 2022-05-27 Orders Doctor CIPRIANO [id number] Univers 00:00:00 00:00:00 Only Unassigned, ODILON [id number] ity of [facility] [id number] [facility] [id number] [facility] 009 Branch 2022-02-12 2022-02-12 Outpatient Krystal RAZA [facility] [id number] Univers 13:05:15 23:59:00 SHIREEN mccall [facility] 2022-02-12 2022-02-12 [facility] [id number] Univers 13:05:15 23:59:00 Encounter [facility] [id number] [facility] [id number] Baldemar as GEORGINA?BLEA [id number] Mo nory SHARPE 808 [facility] OFFICE [facility] 2022-02-12 2022-02-12 Urgent Shireen Raza [facility] [id number] Univers 12:40:00 13:44:52 Care Unknown, Attending HEALTH [id number] ity of [place] [id number] Baldemar as GEORGINA?BLEA [id number] [facility] 370 [facility] 2022-02-12 2022-02-12 [place] [facility] [id number] Univers 00:00:00 00:00:00 Shireen [facility] [id number] it y of [place] [id number] Baldemar as GEORGINA?BLEA [id number] [facility] 370 [facility] 2021-11-05 2021-11-05 Emergency X ELIZA, K [facility] ERT [id number] Univers 13:57:00 18:42:00 ity of [facility] 2021-11-05 2021-11-05 Emergency Eliza, K [facility] [id number] Univers 13:57:00 18:42:00 [facility] [id number] i ty [place] [id number] [place] [id number] [address] 2021-11-05 2021-11-05 Urgent Anum Garay [facility] [id number] Univers 13:00:00 13:20:00 Care Unknown, Attending HEALTH [id number] ity of [place] [id number] Baldemar as GEORGINA?BLEA [id number] [address] 2021-11-05 2021-11-05 Outpatient R KRISTEN [facility] [id number] Univers 13:00:00 13:00:00 ANUM itleeanna [facility] 2021-10-29 2021-10-29 Emergency [facility] [id number] Univers 06:06:00 08:18:00 CHARLES mccall [facility] 2021-10-29 2021-10-29 Emergency [facility] [id number] Univers 06:06:00 08:18:00 MoorelandSal VELASCO [id number] ity [facility] [id number] [facility] [id number] [address] 2021-10-20 2021-10-20 Emergency X ELI [facility] ERT [id number] Univers 16:11:00 21:33:00 ALECIA mccall [facility] 2021-10-20 2021-10-20 Emergency GuerreroQuincyKatherine [facility] 1.2.840. [id number] Univers 16:11:00 21:33:00 Alecia Eagle [id number] ity [facility] [id number] [facility] [id number] [address] 2021-10-18 2021-10-18 (TEL) STLMLC STLMLC [id number] Co mmon 00:00:00 00:00:00 Spirit - [facility] 2021-10-12 2021-10-12 OFFICE STLMLC STLMLC [id number] Co mmon 00:00:00 00:00:00 VISIT Spirit ESTAB PT - [facility] LEVEL 5 [facility] 2021-09-26 2021-09-26 (TEL) STLMLC STLMLC [id number] Co mmon 00:00:00 00:00:00 [facility] - [facility] 2021-09-19 2021-09-19 OFFICE STLMLC STLMLC [id number] Co mmon 00:00:00 00:00:00 VISIT [facility] it PT LEVEL 3 - [facility] 2021-09-15 2021-09-15 Prmio [place] [id number] Univers 00:00:00 00:00:00 Only UnassODILON buckner [id number] ity of [facility] [id number] Baldemar as [id number] [facility] 009 Branch 2021-08-26 2021-08-26 Emergency X Torey KAY [facility] ERT [id number] Univers 08:39:00 14:03:00 ity of [facility] 2021-08-26 2021-08-26 Emergency Torey Kay [facility] [id number] Univers 08:39:00 14:03:00 Joanie VELASCO [id number] i ty of [place] [id number] [place] [phone] [facility] 0[address] 2021-03-08 2021-03-08 [facility] 1.2.840.114 [id number] Univers 00:00:00 00:00:00 Johnson VELASCO 350.1.13.10 ity of [place] [phone] Mo dical NAL 092 Branch [facility] 2020-12-23 2020-12-23 Outpatient R [facility] [id number] Univers 00:00:00 00:00:00 ity of [facility] 2020-12-14 2020-12-14 Transition FILEMON Redman 1.2.840.114 [id number] Univers 00:00:00 00:00:00 of Care Josselin LEWIS 350.1.13.10 i [place]2.[place] [phone] [facility] 403 [address] 2020-12-05 2020-12-12 Inpatient X SANDRITA [facility] CHOLO [id number] Univers 13:25:00 15:45:00 AD ity of [facility] 2020-12-05 2020-12-12 [facility] Alecia Eagle [facility] 1.2.840. 114 [id number] Univers 13:25:00 15:45:00 Encounter Ad Remy 350.1.13.10 it[place] [phone] [place] 7[address] [place] 2020-11-01 2020-11-01 Refill Lavon [facility] 1.2.840.114 [id number] Univers 00:00:00 00:00:00 Michael Eaton 350.1.13.10 i ty of [place] 4.2.7.2.686 T roxy Baez [phone] [address] Office Building 2020-10-12 2020-10-12 Refsherron Fisher [facility] 1.2.840.114 [id number] Univers 00:00:00 00:00:00 Johnson Velasco 350.1.13.10 ity of [place].2.[place] [facility] Edessio [phone] [facility] 092 [facility] 2020-10-07 2020-10-07 Clarity Developer Ny [facility] Main [facility] 1.2.8 40.114 [id number] Univers 10:29:15 10:44:15 Visit Anish Carrera 350.1.13.10 it[place] of [place].2.[place] [phone] [facility] 353 [facility] 2020-10-07 2020-10-07 Outpatient Krystal CARRERA [facility] [id number] Univers 10:30:00 10:30:00 ANISH mccall [facility] 2020-09-10 2020-09-10 Daniela Doll [facility] 1.2.840.114 [id number] Univers 00:00:00 00:00:00 Michael Eaton 350.1.13.10 i ty of [place] 4.2.7.2.686 T roxy Baez [phone] [address] Office Building 2020-09-09 2020-09-09 Orders Doctor COTA 1.2.840.114 [id number] Univers 00:00:00 00:00:00 Only Unassigned, ODILON 350.1.13.10 ity of [place] [facility] 4.2.7.2.686 [place] [phone] [place] [address] [address] 2020-09-06 2020-09-06 Telephone CIPRIANO Machado 1.2.193.080 [id number] Univers 00:00:00 00:00:00 Bailey Mccullough [place] 350.1.13.10 i ty of [facility] 4.2.7.2.686 [place] [phone] [facility] 082 [address] 2020-08-13 2020-08-13 Refill Lvaon [facility] 1.2.840.114 [id number] Univers 00:00:00 00:00:00 [facility] 350.1.13.10 i ty of [place] 4.2.7.2.686 T roxy Camilo Baez [phone] [place] 9[address]12 [place] Office Building 2020-08-09 2020-08-09 Outpatient Krystal CARRERA [facility] [id number] Univers 12:00:00 12:00:00 ANISH mccall [facility] 2020-08-09 2020-08-09 Clarity Developer Anni, Ny Lab Main [facility] 1.2.8 40.114 [id number] Univers 11:42:15 11:57:15 Visit Anish Carrera 350.1.13.10 ity of [place].7.2.[place] [phone] Mo dical [facility] [address] Building 2020-08-09 2020-08-09 Orders Doctor CIPRIANO 1.2.840.114 [id number] Univers 00:00:00 00:00:00 Only Unassigned, ODILON 350.1.13.10 ity of [place] [facility] 4.2.7.2.686 [place] [phone] [facility] [address]9 [address] 2020-07-13 2020-07-14 Emergency Aufderheide, Shi Wagnera TRAUMA 1.2.840.114 [id number] Univers 15:14:00 19:27:00 Christina Roque 350.1.13.10 [place] [phone] [facility] 014 [address] 2020-07-13 2020-07-13 Office Phillip [facility] 1.2.840.114 [id number] Univers 09:44:58 11:19:02 Visit Johnson Velasco 350.1.13.10 ity of [place].7.2.[place] [phone] Mo dical nal 092 [address] Building 2020-07-13 2020-07-13 Outpatient R PHILLIP, JOHNSON [facility] [id number] Univers 09:40:00 09:40:00 JOHNSON FISHER ity of [facility] 2020-07-13 2020-07-13 Letter CIPRIANO Hernandez 1.2.840.114 [id number] Univers 00:00:00 00:00:00 (Out) Fercho WILSON 350.1.13.10 ity of HOSPITAL 4.2.7.2.686 [place] [phone] [facility] 043 [address] 2020-07-08 2020-07-08 Orders Doctor CIPRIANO 1.2.840.114 [id number] Univers 00:00:00 00:00:00 Only Unassigned, ODILON 350.1.13.10 ity of [place] HOSPITAL 4.2.7.2.686 [place] [phone] [facility] 009 [place] 2020-07-07 2020-07-07 Orders Doctor CIPRIANO 1.2.840.114 [id number] Univers 00:00:00 00:00:00 Only Unassigned, ODILON 350.1.13.10 ity of [place] [facility]OSPITAL 4.2.7.2.686 [place] [phone] [facility] 009 [place] 2020-07-07 2020-07-07 Telephone [facility] 1.2.657.155 [id number] Univers 00:00:00 00:00:00 Angy PRIMARY 350.1.13.10 it y of [place] CARE [place]2.7.2.[place] [phone] Mo dical 086 Branch 2020-07-06 2020-07-06 Emergency [facility] 1.2.473.277 [id number] Univers 18:48:00 23:59:00 Alecia Velasco 350.1.13.10 ity of [place].2.[place] [phone] [address] 2020-07-04 2020-07-04 Emergency Hari, [facility] 1.2.840.114 [id number] Univers 12:16:00 18:32:00 Lety Velasco 350.1.13.10 ity of [place] 4.2.7.2.686 [facility] [phone] [address] 2020-06-26 2020-06-28 Emergency Sabrina Ruby 1.2.840 .114 [id number] Univers 15:08:00 18:15:00 Caio Hernandez Odilon 350.1.13.10 ity of [facility] 4.2.7.2.686 [place] [phone] [address] 2020-06-26 2020-06-28 Outpatient X DAVID [facility] JYOTHI [id number] Univers 15:08:00 18:15:00 CAIO mccall o f [facility] 2020-06-28 2020-06-28 [facility]phone [facility] 1.2.840.114 [id number] Univers 00:00:00 00:00:00 Johnson Velasco 350.1.13.10 ity of [place] 4.2.7.2.686 [facility] [phone] [address] 2020-06-22 2020-06-22 Outpatient STLMLC STLMLC [id number] Common 00:00:00 00:00:00 [facility] 2020-05-30 2020-06-02 Emergency Katherine Guerrero [facility] 1.2.840. 114 [id number] Univers 14:32:00 11:50:00 Ad Remy 350.1.13.10 ity of [place] Hernadez 4.2.7.2.686 [facility] [phone] [address] 2020-05-31 2020-05-31 Outpatient Krystal MCGOWAN [facility] [id number] Univers 09:45:00 09:45:00 ABHIJIT ity of [facility] 2020-05-26 2020-05-26 Emergency [facility] 1.2.458.045 [id number] Univers 18:10:00 21:41:00 Umm Velasco 350.1.13.10 ity of [place] 4.2.7.2.686 [facility] [phone] [place] [address] [place] 2020-05-26 2020-05-26 Orders Doctor CIPRIANO 1.2.840.114 [id number] Univers 00:00:00 00:00:00 Only Unassigned, ODILON 350.1.13.10 ity of [place] HOSPITAL 4.2.7.2.686 [place] [phone] [address] 2020-05-13 2020-05-13 Emergency [facility] 1.2.840.114 [id number] Univers 11:30:00 17:34:00 Dottie Velasco 350.1.13.10 ity of [place] 4.2.7.2.686 [facility] [phone] [address] 2020-05-13 2020-05-13 Urgent Provider, [facility] 1.2.840.114 [id number] Univers 10:10:06 11:10:27 Care Sarah Orantes [facility] 350.1.13.10 ity of [place] 4.2.7.2.686 [place] Professio [phone] [address] Office Building One 2020-05-13 2020-05-13 [facility] [id number] Univers 11:00:00 11:00:00 SARAH mccall of [facility] 2020-05-13 2020-05-13 Orders Doctor COTA 1.2.840.114 [id number] Univers 00:00:00 00:00:00 Only Unassigned, ODILON 350.1.13.10 ity of [place] HOSPITAL 4.2.7.2.686 [place] [phone] [address] 2020-04-19 2020-04-19 Daniela Fisher [facility] 1.2.840.114 [id number] Univers 00:00:00 00:00:00 Johnson Velasco 350.1.13.10 it[place] of [place] [phone] Mo dical nal 092 [facility] 2020-04-09 2020-04-09 Refill [facility] 1.2.840.114 [id number] Univers 00:00:00 00:00:00 Johnson Velasco 350.1.13.10 it[place] of [place].2.[place] [phone] Mo dicne nal 092 [facility] 2020-03-23 2020-03-23 Office [facility] 1.2.840.114 [id number] Univers 09:29:15 10:11:33 Visit Johnson Velasco 350.1.13.10 it[place] of [place].2.[place] [phone] Mo dicne nal 092 [facility] 2020-03-23 2020-03-23 Outpatient R JOHNSON FISHER [facility] [id number] Univers 09:20:00 09:20:00 JOHNSON FISHER ity of [facility] 2020-03-15 2020-03-15 [facility] 1.2.840.114 [id number] Univers 00:00:00 00:00:00 Johnson Velasco 350.1.13.10 it[place] of [place].2.[place] [phone] [facility] 092 [facility] 2019-12-10 2019-12-10 Orders Doctor CIPRIANO 1.2.840.114 [id number] Univers 00:00:00 00:00:00 Only Unassigned, ODILON 350.1.13.10 ity of [place] HOSPITAL 4.2.7.2.686 [place] [phone] [address] 2019-12-09 2019-12-09 Case [facility] 1.2.840.114 [id number] Univers 00:00:00 00:00:00 Management Kari Velasco 350.1.13.10 it[place] of [place].2.[place] [phone] Me dical nal 204 [facility] 2019-12-08 2019-12-08 Emergency [facility] 1.2.183.945 [id number] Univers 11:01:00 14:17:00 Lesley Bah Krista 350.1.13.10 i ty of [place].7.2.686 [place] [phone] [facility] [address] [place] 2019-12-08 2019-12-08 Office [facility] 1.2.840.114 [id number] Univers 09:53:04 10:44:29 Visit Abhijit [place] 350.1.13.10 i ty of [place] 4[place]2.7.2.[place] [phone] [facility] 204 [facility] 2019-12-08 2019-12-08 Outpatient [facility] [id number] Univers 10:15:00 10:15:00 ABHIJIT ity [facility] 2019-12-08 2019-12-08 Orders Doctor COTA 1.2.840.114 [id number] Univers 00:00:00 00:00:00 Only Unassigned, ODILON 350.1.13.10 ity of [place] [facility] 4.2.7.2.686 [place] [phone] [facility] [address] [place] 2019-12-06 2019-12-06 [facility] 1.2.840.114 [id number] Univers 00:00:00 00:00:00 Johnson Velasco 350.1.13.10 ity of [place]7.2.[place] [address] [phone] [facility] 092 [facility] 2019-10-17 2019-10-17 Refill [facility] 1.2.840.114 [id number] Univers 00:00:00 00:00:00 Johnson Velasco 350.1.13.10 it[place] of [place].2.[place] [phone] [address] 2019-09-29 2019-09-29 Orders Doctor COTA 1.2.840.114 [id number] Univers 00:00:00 00:00:00 Only Unassigned, ODILON 350.1.13.10 ity of [place] [facility] 4.2.7.2.686 [place] [phone] [address] 2019-09-23 2019-09-23 Refsherron [facility] 1.2.840.114 [id number] Univers 00:00:00 00:00:00 Johnson Herron Krista 350.1.13.10 ity of [place] 4[place].2.[place] [phone] [address] 2019-08-07 2019-08-07 Refsherron [facility] 1.2.840.114 [id number] Univers 00:00:00 00:00:00 Johnson Herron Krista 350.1.13.10 it[place] of [place].2.[place] [phone] [address] 2019-05-21 2019-05-21 [place] [facility] 1.2.840.114 [id number] Univers 00:00:00 00:00:00 Johnson Herron Krista 350.1.13.10 ity of [place] 4[place].7.2.[place] [phone] [address] 2019-04-24 2019-04-24 [place] [facility] 1.2.840.114 [id number] Univers 00:00:00 00:00:00 Johnson Velasco 350.1.13.10 ity of [place] 4[place].2.[place] [phone] [address] 2019-04-17 2019-04-17 [facility] 1.2.840.114 [id number] Univers 00:00:00 00:00:00 Johnson Gopal Velasco 350.1.13.10 ity of [place] 4[place]7.2.[place] [phone] [address] 2019-04-07 2019-04-07 [place] [facility] 1.2.840.114 [id number] Univers 00:00:00 00:00:00 Johnson Velasco 350.1.13.10 ity of [place].2.[place] [phone] Mo dical nal 092 [facility] 2019-03-28 2019-03-28 Clarity Developer 2, Adc Lab [facility] 1.2.840.114 [id number] Univers 11:02:20 11:17:20 Visit Johnson Fisher 350.1.13 .10 ity of [place] 4.2.7.2.[place] [phone] Mo dical nal 353 [facility] 2019-03-28 2019-03-28 Office Phillip [facility] 1.2.840.114 [id number] Univers 09:56:36 10:59:16 Visit Johnson Velasco 350.1.13.10 ity of [place] 4.2.7.2.[place] [phone] Mo dical nal 092 [facility] 2019-03-28 2019-03-28 Orders Doctor CIPRIANO 1.2.840.114 [id number] Univers 00:00:00 00:00:00 Only Unassigned, ODILON 350.1.13.10 ity of [place] [facility] 4.2.7.2.686 [place] [phone] [address] 2018-11-05 2018-11-05 Emergency E [facility] 7500 [facility] 11:03:00 11:03:00 [facility] 2017-08-24 2017-08-24 [facility] 14 [id number] Common 08:45:00 08:45:00 [email or web address] [address] [facility] 2017-08-01 2017-08-01 Outpatient [facility] 14 [id number] Common 10:15:00 10:15:00 [email or web address] [address] Drive [facility] Results Test Description Test Time Test Comments Results Result Comments Source COMP. METABOLIC PANEL (81355) 2022-05-28 01:28:49 Test Item Value Reference Range Interpretation Comme nts NA (test code = 8416042314) 141 mmol/L 135-145 K (test code = 9534071001) 4.3 mmol/L 3.5-5.0 CL (test code = 9981348392) 105 mmol/L 98-108 CO2 TOTAL (test code = 1234480762) 20 mmol/L 23-31 L AGAP (test code = 3233586606) 16 2-16 BUN (test code = 2590077658) 19 mg/dL 7-23 GLUCOSE (test code = 3577923345) 146 mg/dL 70-110 H CREATININE (test code = 0.80 mg/dL 0.50-1.04 8252824944) TOTAL BILI (test code = 0.7 mg/dL 0.1-1.8 8418604849) CALCIUM (test code = 3166707636) 9.9 mg/dL 8.6-10.6 T PROTEIN (test code = 4068131536) 7.9 g/dL 6.3-8.2 ALBUMIN (test code = 3800965965) 4.6 g/dL 3.5-5.0 ALK PHOS (test code = 8551913892) 129 U/L 34-122 H ALTv (test code = 1742-6) 36 U/L 5-35 H AST(SGOT) (test code = 8224849797) 37 U/L 13-40 eGFR (test code = 7079392794) 76.9 mL/min/1.73m2 ANTHONY (test code = ANTHONY) Association [...] tests). Lab Interpretation (test code = Abnormal 35017-7) [facility] WITH [id number] 01:15:09 Test Item Value Reference Range Interpretation Comments WBC (test code = 10.84 See_Comment [Automated 6690-2) message] The sy stem which generated this result transmitted reference range : 4.30 - 11.10 10*3/?L. The reference range was not used to interpret this result as normal/abnormal . RBC (test code = 3.57 See_Comment L [Automated 789-8) message] The sy stem which generated this result transmitted reference range : 3.93 - 5.25 10*6/?L. The reference range was not used to interpret this result as normal/abnormal . HGB (test code = 11.0 g/dL 11.6-15.0 L 718-7) HCT (test code = 32.9 % 35.7-45.2 L 4544-3) MCV (test code = 92.2 fL 80.6-95.5 787-2) MCH (test code = 30.8 pg 25.9-32.8 785-6) MCHC (test code = 33.4 g/dL 31.6-35.1 786-4) RDW-SD (test code = 61.2 fL 39.0-49.9 H 05207-5) RDW-CV (test code = 18.0 % 12.0-15.5 H 788-0) PLT (test code = 339 See_Comment [Automated 777-3) message] The sy stem which generated this result transmitted reference range : 166 - 358 10*3/ ?L. The reference r miky was not used to interpret this result as normal/abnormal . MPV (test code = 9.7 fL 9.5-12.9 27108-7) NRBC/100 WBC (test 0.0 See_Comment [Automat ed code = 4690566353) message] The system which generated this result transmitted reference range : 0.0 - 10.0 /100 WBCs. The refer ence range was not u sed to interpret th is result as normal/abnormal . NRBC x10^3 (test code See_Comment [Auto mated = 1034485452) message] The s ystem which generated this result transmitted reference range : 10*3/?L. The reference range was not used to interpret this result as normal/abnormal . GRAN MAT (NEUT) % 62.2 % (test code = 770-8) IMM GRAN % (test code 2.00 % = 5306932719) LYMPH % (test code = 26.9 % 736-9) MONO % (test code = 7.9 % 5905-5) EOS % (test code = 0.7 % 713-8) BASO % (test code = 0.3 % 706-2) GRAN MAT x10^3(ANC) 6.73 10*3/uL 1.88-7.09 (test code = 8435778024) IMM GRAN x10^3 (test 0.22 10*3/uL 0.00-0.06 H code = 3187541157) LYMPH x10^3 (test code 2.92 10*3/uL 1.32-3.29 = 731-0) MONO x10^3 (test code 0.86 10*3/uL 0.33-0.92 = 742-7) EOS x10^3 (test code = 0.08 10*3/uL 0.03-0.39 711-2) BASO x10^3 (test code 0.03 10*3/uL 0.01-0.07 = 704-7) Lab Interpretation Abnormal (test code = 89238-1) [id number] 20:33:36 Test Item Value Reference Interpretation Comments Range TROPONIN I (test 0.006 ng/mL See_Comment [Automated code = 1479931921) message] The system which generated this result [...] biotin. Lab Interpretation Normal (test code = 24195-1) [facility]24[facility]14 Test Item Value Reference Range Interpretation Comments MAGNESIUM (test code = 0958732574) 1.9 mg/dL 1.7-2.4 Lab Interpretation (test code = Normal 32494-4) [facility] (04080)2021-11-05 20:23:53 Test Item Value Reference Range Interpretation Comments NA (test code = 139 mmol/L 135-145 5149306577) K (test code = 3.9 mmol/L 3.5-5 3312621780) CL (test code = 108 mmol/L 98-108 4819680003) CO2 TOTAL (test code = 18 mmol/L 23-31 L 9993386678) AGAP (test code = 2-16 0230464274) BUN (test code = 14 mg/dL 7-23 4195468370) GLUCOSE (test code = 99 mg/dL 70-110 7406339637) CREATININE (test code = 0.71 mg/dL 0.5-1.04 1168556770) TOTAL BILI (test code = 0.4 mg/dL 0.1-1.3 1512127526) CALCIUM (test code = 9.3 mg/dL 8.6-10.6 4008208169) T PROTEIN (test code = 7.8 g/dL 6.3-8.2 1118579301) ALBUMIN (test code = 4.5 g/dL 3.5-5 1948391683) ALK PHOS (test code = 111 U/L 34-122 2740736118) ALTv (test code = 32 U/L 5-35 1742-6) AST(SGOT) (test code = 41 U/L 13-40 H 7235101752) eGFR (test code = mL/min/1.73m2 2299825327) ANTHONY (test code = ANTHONY) Association of [...] tests). Lab Interpretation Abnormal (test code = 61382-2) [facility] WITH [id number] 20:05:58 Test Item Value Reference Range Interpretation Comments WBC (test code = See_Comment L [Automated 2790-2) message] The sy stem which generated this result transmitted reference range : 4.30 - 11.10 10*3/?L. The reference range was not used to interpret this result as normal/abnormal . RBC (test code = See_Comment L [Automated 439-8) message] The sy stem which generated this result transmitted reference range : 3.93 - 5.25 10*6/?L. The reference range was not used to interpret this result as normal/abnormal . HGB (test code = 10.8 g/dL 11.6-15 L 718-7) HCT (test code = 32.1 % 35.7-45.2 L 4544-3) MCV (test code = 90.4 fL 80.6-95.5 787-2) MCH (test code = 30.4 pg 25.9-32.8 785-6) MCHC (test code = 33.6 g/dL 31.6-35.1 786-4) RDW-SD (test code = 52.3 fL 39-49.9 H 27657-1) RDW-CV (test code = 16.1 % 12-15.5 H 788-0) PLT (test code = See_Comment [Automated 777-3) message] The sy stem which generated this result transmitted reference range : 166 - 358 10*3/ ?L. The reference r miky was not used to interpret this result as normal/abnormal . MPV (test code = 9.9 fL 9.5-12.9 48347-2) NRBC/100 WBC (test See_Comment [Automat ed code = 7186209323) message] The system which generated this result transmitted reference range : 0.0 - 10.0 /100 WBCs. The refer ence range was not u sed to interpret th is result as normal/abnormal . NRBC x10^3 (test code See_Comment [Auto mated = 8093147019) message] The s ystem which generated this result transmitted reference range : 10*3/?L. The reference range was not used to interpret this result as normal/abnormal . GRAN MAT (NEUT) % 43.9 % (test code = 770-8) IMM GRAN % (test code 0.30 % = 1648196045) LYMPH % (test code = 46.5 % 736-9) MONO % (test code = 8.5 % 5905-5) EOS % (test code = 0.5 % 713-8) BASO % (test code = 0.3 % 706-2) GRAN MAT x10^3(ANC) 1.71 10*3/uL 1.88-7.09 L (test code = 7913639886) IMM GRAN x10^3 (test 0-0.06 code = 9541455704) LYMPH x10^3 (test code 1.81 10*3/uL 1.32-3.29 = 731-0) MONO x10^3 (test code 0.33 10*3/uL 0.33-0.92 = 742-7) EOS x10^3 (test code = 0.03-0.39 L 711-2) BASO x10^3 (test code 0.01-0.07 = 704-7) Lab Interpretation Abnormal (test code = 52190-1) [facility] MOLECULAR [id number] 18:32:12 Test Item Value Reference Range Interpretation Comments POCT Molecular FluA (test code = Negative Negative 41620-5) POCT Molecular FluB (test code = Negative Negative 05951-6) Lab Interpretation (test code = Normal 47537-8) [facility] MOLECULAR [id number] 18:16:35 Test Item Value Reference Range Interpretation Comments POCT Molecular Strep (test code = Negative Negative 56041-8) Lab Interpretation (test code = Normal 05457-5) [facility] [id number] 12:15:46 Test Item Value Reference Interpretation Comments Range TROPONIN I (test 0.004 ng/mL See_Comment [Automated code = 7088029059) message] The system which generated this result [...] biotin. Lab Interpretation Normal (test code = 82677-8) [facility] [id number] 12:12:30 Test Item Value Reference Range Interpretation Comments NT-proBNP (test code 26 pg/mL See_Comment [Autom ated = [id number]) message] The system which generated this result transmitted reference range : <=125. The reference range was not used to interpret this result as normal/abnormal . ANTHONY (test code = ANTHONY) Biotin has been reported to cause a negative bias, interpret results relative to patient's use of biotin. Lab Interpretation Normal (test code = 54762-6) [facility] THRMPLAS [id number] 12:12:29 Test Item Value Reference Range Interpretation Comments APTT Patient (test See_Comment [Automat ed code = 3173-2) message] The system which generated this result transmitted reference range : 23 - 38 Seconds . The reference range was not used to interpr et this result as normal/abnormal . ANTHONY (test code = ANTHONY) The [facility] patient population mean normal value for aPTT is 30 seconds. Lab Interpretation Normal (test code = 45485-9) [facility]PROT[facility] TIME / [id number] 12:10:08 Test Item Value Reference Range Interpretation Comments [...] tions. Lab Interpretation (test Normal code = 02618-1) [facility]. METABOLIC PANEL ([id number] 12:03:49 Test Item Value Reference Range Interpretation Comments NA (test code = 139 mmol/L 135-145 [id number]) K (test code = 3.9 mmol/L 3.5-5 [id number]) CL (test code = 110 mmol/L 98-108 H [id number]) CO2 TOTAL (test code = 17 mmol/L 23-31 L [id number]) AGAP (test code = 2-16 [id number]) BUN (test code = 23 mg/dL 7-23 0385904505) GLUCOSE (test code = 122 mg/dL 70-110 H 4358532774) CREATININE (test code = 1.05 mg/dL 0.5-1.04 H 7708317754) TOTAL BILI (test code = 0.4 mg/dL 0.1-1.8 0667621355) CALCIUM (test code = 9.5 mg/dL 8.6-10.6 5482758591) T PROTEIN (test code = 7.5 g/dL 6.3-8.2 3013366949) ALBUMIN (test code = 4.6 g/dL 3.5-5 6024836262) ALK PHOS (test code = 134 U/L 34-122 H 0374159743) ALTv (test code = 28 U/L 5-35 1742-6) AST(SGOT) (test code = 29 U/L 13-40 3227174140) eGFR (test code = mL/min/1.73m2 0139077275) ANTHONY (test code = ANTHONY) Association of [...] tests). Lab Interpretation Abnormal (test code = 55165-7) [facility] 12:03:49 Test Item Value Reference Range Interpretation Comments LIPASE (test code = 3404851480) 63 U/L 0-220 Lab Interpretation (test code = Normal 35227-8) [facility] WITH [id number] 11:59:27 Test Item Value Reference Range Interpretation Comments WBC (test code = See_Comment H [Automated 6690-2) message] The sy stem which [...] as normal/abnormal . HGB (test code = 9.9 g/dL 11.6-15 L 718-7) HCT (test code = 30.7 % 35.7-45.2 L 4544-3) MCV (test code = 92.2 fL 80.6-95.5 787-2) MCH (test code = 29.7 pg 25.9-32.8 785-6) MCHC (test code = 32.2 g/dL 31.6-35.1 786-4) RDW-SD (test code = 51.6 fL 39-49.9 H 92766-0) RDW-CV (test code = 15.4 % 12-15.5 788-0) PLT (test code = See_Comment H [Automated 777-3) message] The sy stem which generated this result transmitted reference range : 166 - 358 10*3/ ?L. The reference r miky was not used to interpret this result as normal/abnormal . MPV (test code = 9.9 fL 9.5-12.9 55322-8) NRBC/100 WBC (test See_Comment [Automat ed code = 7634536777) message] The system which generated this result transmitted reference range : 0.0 - 10.0 /100 WBCs. The refer ence range was not u sed to interpret th is result as normal/abnormal . NRBC x10^3 (test code See_Comment [Auto mated = 6534512334) message] The s ystem which generated this result transmitted reference range : 10*3/?L. The reference range was not used to interpret this result as normal/abnormal . GRAN MAT (NEUT) % 73.7 % (test code = 770-8) IMM GRAN % (test code 0.30 % = 4308427049) LYMPH % (test code = 20.4 % 736-9) MONO % (test code = 4.8 % 5905-5) EOS % (test code = 0.5 % 713-8) BASO % (test code = 0.3 % 706-2) GRAN MAT x10^3(ANC) 8.49 10*3/uL 1.88-7.09 H (test code = 3540454971) IMM GRAN x10^3 (test 0.04 10*3/uL 0-0.06 code = 1211449258) LYMPH x10^3 (test code 2.35 10*3/uL 1.32-3.29 = 731-0) MONO x10^3 (test code 0.55 10*3/uL 0.33-0.92 = 742-7) EOS x10^3 (test code = 0.06 10*3/uL 0.03-0.39 711-2) BASO x10^3 (test code 0.03 10*3/uL 0.01-0.07 = 704-7) Lab Interpretation Abnormal (test code = 82517-0) [facility]ACTIV[facility] PART[facility] THRMPLAS [id number] 23:16:59 Test Item Value Reference Range Interpretation Comments APTT Patient (test See_Comment [Automat ed code = 3173-2) message] The system which generated this result transmitted reference range : 23 - 38 Seconds . The reference range was not used to interpr et this result as normal/abnormal . ANTHONY (test code = ANTHONY) The [facility] patient population mean normal value for aPTT is 30 seconds. Lab Interpretation Normal (test code = 57809-8) [facility] CypressPROTHROMBIN TIME / [id number] 23:15:01 Test Item Value Reference Range Interpretation Comments PROTIME PATIENT (test See_Comment H [Auto mated message] code = 5964-2) The system [employer] generated this result transmitted ref erence range: 12.0 - 1 4.7 Seconds. The reference range was not used to int erpret this result as normal/abnormal . INR (test code = 6301-6) Nor mal INR <1.1; Warfarin Therap eutic range 2.0 to 3. 0 or 2.5 to 3.5, dep ending upon the indica tions. Lab Interpretation (test Abnormal code = 30404-4) [facility]ressCOMP. METABOLIC PANEL (63200)2021-10-20 22:51:53 Test Item Value Reference Range Interpretation Comments NA (test code = 137 mmol/L 135-145 5217454745) K (test code = 5.1 mmol/L 3.5-5 H 6449257738) CL (test code = 105 mmol/L 98-108 0400197637) CO2 TOTAL (test code = 22 mmol/L 23-31 L 9859971344) AGAP (test code = 2-16 9321908819) BUN (test code = 27 mg/dL 7-23 H 7570653601) GLUCOSE (test code = 139 mg/dL 70-110 H 8107032782) CREATININE (test code = 1.23 mg/dL 0.5-1.04 H 9431975127) TOTAL BILI (test code = 0.1-1.1 L 1453271836) CALCIUM (test code = 8.8 mg/dL 8.6-10.6 9097392928) T PROTEIN (test code = 7.1 g/dL 6.3-8.2 7854378852) ALBUMIN (test code = 4.5 g/dL 3.5-5 2524864919) ALK PHOS (test code = 158 U/L 34-122 H 2757051303) ALTv (test code = 130 U/L 5-35 H 1742-6) AST(SGOT) (test code = 70 U/L 13-40 H 0043439268) eGFR (test code = mL/min/1.73m2 6764726816) ANTHONY (test code = ANTHONY) Association of [...] tests). Lab Interpretation Abnormal (test code = 85897-8) [facility] WITH [id number] 22:39:51 Test Item Value Reference Range Interpretation Comments WBC (test code = See_Comment [Automated 2166-2) message] The sy stem which generated this result transmitted reference range : 4.30 - 11.10 10*3/?L. The reference range was not used to interpret this result as normal/abnormal . RBC (test code = See_Comment L [Automated 653-4) message] The sy stem which generated this [...] (test code = 51.7 fL 39-49.9 H 00712-5) RDW-CV (test code = 15.5 % 12-15.5 788-0) PLT (test code = See_Comment [Automated 777-3) message] The sy stem which generated this result transmitted reference range : 166 - 358 10*3/ ?L. The reference r miky was not used to interpret this result as normal/abnormal . MPV (test code = 10.2 fL 9.5-12.9 02900-9) NRBC/100 WBC (test See_Comment [Automat ed code = 6170875606) message] The system which generated this result transmitted reference range : 0.0 - 10.0 /100 WBCs. The refer ence range was not u sed to interpret th is result as normal/abnormal . NRBC x10^3 (test code See_Comment [Auto mated = 3305537018) message] The s ystem which generated this result transmitted reference range : 10*3/?L. The reference range was not used to interpret this result as normal/abnormal . GRAN MAT (NEUT) % 83.6 % (test code = 770-8) IMM GRAN % (test code 0.60 % = 4315650339) LYMPH % (test code = 10.7 % 736-9) MONO % (test code = 5.0 % 5905-5) EOS % (test code = 0.0 % 713-8) BASO % (test code = 0.1 % 706-2) GRAN MAT x10^3(ANC) 8.64 10*3/uL 1.88-7.09 H (test code = 7182118147) IMM GRAN x10^3 (test 0.06 10*3/uL 0-0.06 code = 6241905248) LYMPH x10^3 (test code 1.11 10*3/uL 1.32-3.29 L = 731-0) MONO x10^3 (test code 0.52 10*3/uL 0.33-0.92 = 742-7) EOS x10^3 (test code = 0.03-0.39 L 711-2) BASO x10^3 (test code 0.01-0.07 = 704-7) Lab Interpretation Abnormal (test code = 12159-6) [facility]ressAC PANEL 21 + LACTIC [id number] 14:22:59 Test Item Value Reference Range Interpretation Comments PH (test code = 7.32-7.42 9607145333) PCO2 ZULEYMA (test code = See_Comment [Auto mated 4931482035) message] The sy stem which generated this result transmitted reference range : 41 - 51 mmHg. The reference range was not used to interpret this result as normal/abnormal . PO2 ZULEYMA (test code = See_Comment [Autom ated 3531307081) message] The sy stem which generated this result transmitted reference range : 25 - 40 mmHg. The reference range was not used to interpret this result as normal/abnormal . HCO3 ZULEYMA (test code = See_Comment L [Auto mated 4543564571) message] The sy stem which generated this result transmitted reference range : 24 - 28 mEq/L. The reference range was not used to interpret this result as normal/abnormal . AC VBE(BEAKER) (test mEq/L code = 8106222061) THB ZULEYMA (test code = 14.7 g/dL 12-16 7487818357) %O2HB ZULEYMA (test code = 50.1 % 52-63 L 8069146888) %COHB ZULEYMA (test code = 1.0 % 0-1.5 5950734839) %METHB ZULEYMA (test code = 0.3 % 0.4-1.5 L 8488619606) VOL%O2 ZULEYMA (test code = 10.3 % 6-12 0264925526) NA (test code = 139 mmol/L 135-145 0157042462) K+ (test code = 3.7 mmol/L 3.5-5 9230994452) AC CA IONZ (test code = 5.10 mg/dL 4.5-5.3 3177038887) GLUCOSE (test code = 92 mg/dL 70-110 0217664490) LACTIC ACID (test code 1.49 mmol/L 0.5-2.2 = 6329724249) Lab Interpretation Abnormal (test code = 71212-9) [facility] METABOLIC PANEL (NA, K, CL, CO2, GLUCOSE, BUN, CREATININE, CA)2020-12-12 11:05:50 Test Item Value Reference Range Interpretation Comments NA (test code = 133 mmol/L 135-145 L 4371854761) K (test code = 5.0 mmol/L 3.5-5.0 2657335778) CL (test code = 105 mmol/L 98-108 8841980310) CO2 TOTAL (test code = 24 mmol/L 23-31 4166937767) AGAP (test code = 2-16 4956453635) BUN (test code = 9 mg/dL 7-23 4618511946) GLUCOSE (test code = 93 mg/dL 70-110 2164388424) CREATININE (test code = 0.57 mg/dL 0.50-1.04 8116129315) CALCIUM (test code = 9.8 mg/dL 8.6-10.6 0720243060) eGFR (test code = mL/min/1.73m2 9318953690) ANTHONY (test code = ANTHONY) Association of [...] tests). Lab Interpretation Abnormal (test code = 90404-4) [facility]2021-10-31 11:05:50 Test Item Value Reference Range Interpretation Comments MAGNESIUM (test code = 9291191420) 2.3 mg/dL 1.7-2.4 Lab Interpretation (test code = Normal 11705-3) [facility]PH[facility]2021-10-31 11:05:30 Test Item Value Reference Range Interpretation Comments PHOSPHORUS (test code = 0171040585) 4.1 mg/dL 2.5-5.0 Lab Interpretation (test code = Normal 20719-0) [facility] CypressOSMOLALITY, SERUM OR [id number] 17:26:02 Test Item Value Reference Range Interpretation Comments OSMOLALITY (test code = See_Comment [Au tomated message] 6797363383) The system [employer] generated this result transmitted ref erence range: 278 - 30 5 mOsm/kg. The re ference range was not u sed to interpret this result as normal/abnor mal. Lab Interpretation (test Normal code = 03246-7) [facility] CypressVancomycin Random [id number] 15:46:31 Test Item Value Reference Range Interpretation Comments VANCO RANDOM (test code = 8.9 ug/mL 6936067440) [facility] METABOLIC PANEL (NA, K, CL, CO2, GLUCOSE, BUN, CREATININE, CA)2020-12-11 10:02:40 Test Item Value Reference Range Interpretation Comments NA (test code = 135 mmol/L 135-145 0207715432) K (test code = 4.7 mmol/L 3.5-5.0 2864498523) CL (test code = 107 mmol/L 98-108 1534681489) CO2 TOTAL (test code 24 mmol/L 23-31 = 6227425172) AGAP (test code = 2-16 2625968187) BUN (test code = 9 mg/dL 7-23 6317970007) GLUCOSE (test code = 98 mg/dL 70-110 1393301828) CREATININE (test code 0.62 mg/dL 0.50-1.04 = 5178641721) CALCIUM (test code = 9.5 mg/dL 8.6-10.6 8746025438) eGFR (test code = mL/min/1.73m2 7851474349) ANTHONY (test code = ANTHONY) Association of [...] urine or abnormalities in imaging tests). [facility] WITH [id number] 09:45:31 Test Item Value Reference Range Interpretation [...] (test code = 55.5 fL 39.0-49.9 H 21727-5) RDW-CV (test code = 15.6 % 12.0-15.5 H 788-0) PLT (test code = See_Comment [Automated 777-3) message] The sy stem which generated this result transmitted reference range : 166 - 358 10*3/ ?L. The reference r miky was not used to interpret this result as normal/abnormal . MPV (test code = 11.5 fL 9.5-12.9 01958-1) NRBC/100 WBC (test See_Comment [Automat ed code = 1416349662) message] The system which generated this result transmitted reference range : 0.0 - 10.0 /100 WBCs. The refer ence range was not u sed to interpret th is result as normal/abnormal . NRBC x10^3 (test code See_Comment [Auto mated = 7367440419) message] The s ystem which generated this result transmitted reference range : 10*3/?L. The reference range was not used to interpret this result as normal/abnormal . GRAN MAT (NEUT) % 44.2 % (test code = 770-8) IMM GRAN % (test code 5.40 % = 2125423032) LYMPH % (test code = 35.6 % 736-9) MONO % (test code = 14.1 % 5905-5) EOS % (test code = 0.3 % 713-8) BASO % (test code = 0.4 % 706-2) GRAN MAT x10^3(ANC) 2.99 10*3/uL 1.88-7.09 (test code = 4702633307) IMM GRAN x10^3 (test 0.37 10*3/uL 0.00-0.06 H code = 0306477286) LYMPH x10^3 (test code 2.42 10*3/uL 1.32-3.29 = 731-0) MONO x10^3 (test code 0.96 10*3/uL 0.33-0.92 H = 742-7) EOS x10^3 (test code = <0.03 0.03-0.39 L 711-2) BASO x10^3 (test code 0.03 10*3/uL 0.01-0.07 = 704-7) Lab Interpretation Abnormal (test code = 81829-5) [facility]2021-10-30 09:37:24 Test Item Value Reference Range Interpretation Comments MAGNESIUM (test code = 8406166931) 2.3 mg/dL 1.7-2.4 Lab Interpretation (test code = Normal 04521-5) [facility]PH[facility]2021-10-30 09:37:04 Test Item Value Reference Range Interpretation Comments PHOSPHORUS (test code = 4275821207) 2.8 mg/dL 2.5-5.0 Lab Interpretation (test code = Normal 15750-5) [facility]ressURIC [id number] 09:36:44 Test Item Value Reference Range Interpretation Comments URIC ACID (test code = 6909855703) 3.2 mg/dL 2.9-6.0 Lab Interpretation (test code = Normal 61309-5) [facility] (NA, K, CL, CO2, GLUCOSE, BUN, CREATININE, CA)2020-12-10 20:08:36 Test Item Value Reference Range Interpretation Comments NA (test code = 126 mmol/L 135-145 L 3026561574) K (test code = 3.7 mmol/L 3.5-5.0 9894094582) CL (test code = 102 mmol/L 98-108 3831511535) CO2 TOTAL (test code = 21 mmol/L 23-31 L 1547966334) AGAP (test code = 2-16 0757343545) BUN (test code = 9 mg/dL 7-23 3027864742) GLUCOSE (test code = 116 mg/dL 70-110 H 0750458497) CREATININE (test code = 0.72 mg/dL 0.50-1.04 6375597716) CALCIUM (test code = 8.9 mg/dL 8.6-10.6 5193874851) eGFR (test code = mL/min/1.73m2 0551920111) ANTHONY (test code = ANTHONY) Association of [...] tests). Lab Interpretation Abnormal (test code = 19825-5) [facility]ressBLOOD CULTURE [id number] 20:01:33 Test Item Value Reference Range Interpretation Comments Blood Culture-Aerobic No organisms No growth Previo us (test code = 22557-2) isolated prelim inary verified result was Culture [...] Culture-Anaerobic isolated preliminar y (test code = 34454-7) verifi ed result was Culture In Progress [...] CDT Lab Interpretation Normal (test code = 00991-8) [facility]ressBL[facility] C[facility] [id number] 20:01:33 Test Item Value Reference Range Interpretation Comments Blood Culture-Aerobic No organisms No growth Previo us (test code = 43175-1) isolated prelim inary verified result was Culture [...] Culture-Anaerobic isolated preliminar y (test code = 96858-5) verifi ed result was Culture In Progress [...] CDT Lab Interpretation Normal (test code = 99678-2) [facility]2021-10-29 19:00:05 Test Item Value Reference Range Interpretation Comments PHOSPHORUS (test code = 0715361544) 2.5 mg/dL 2.5-5.0 Lab Interpretation (test code = Normal 92074-2) [facility] WITH [id number] 18:49:57 Test Item Value Reference Range Interpretation [...] (test code = 52.4 fL 39.0-49.9 H 46233-5) RDW-CV (test code = 15.2 % 12.0-15.5 788-0) PLT (test code = See_Comment L [Automated 777-3) message] The sy stem which generated this result transmitted reference range : 166 - 358 10*3/ ?L. The reference r miky was not used to interpret this result as normal/abnormal . MPV (test code = 10.8 fL 9.5-12.9 26085-5) NRBC/100 WBC (test See_Comment [Automat ed code = 2540483448) message] The system which generated this result transmitted reference range : 0.0 - 10.0 /100 WBCs. The refer ence range was not u sed to interpret th is result as normal/abnormal . NRBC x10^3 (test code See_Comment [Auto mated = 3676177528) message] The s ystem which generated this result transmitted reference range : 10*3/?L. The reference range was not used to interpret this result as normal/abnormal . GRAN MAT (NEUT) % 47.2 % (test code = 770-8) IMM GRAN % (test code 5.80 % = 6589751616) LYMPH % (test code = 29.2 % 736-9) MONO % (test code = 17.1 % 5905-5) EOS % (test code = 0.4 % 713-8) BASO % (test code = 0.3 % 706-2) GRAN MAT x10^3(ANC) 3.14 10*3/uL 1.88-7.09 (test code = 3279295434) IMM GRAN x10^3 (test 0.39 10*3/uL 0.00-0.06 H code = 5471054544) LYMPH x10^3 (test code 1.95 10*3/uL 1.32-3.29 = 731-0) MONO x10^3 (test code 1.14 10*3/uL 0.33-0.92 H = 742-7) EOS x10^3 (test code = 0.03 10*3/uL 0.03-0.39 711-2) BASO x10^3 (test code <0.03 0.01-0.07 = 704-7) POLYCHROMASIA (test 2+ See_Comment [Automa karly code = 57876-4) message] The system which generated this result transmitted reference range : 2+. The referen ce range was not u sed to interpret th is result as normal/abnormal . BANDS (test code = Increased A 4258981740) Lab Interpretation Abnormal (test code = 87546-2) [facility]ress[facility]comycin Trough Level - Draw random trough at [id number] 16:37:29 Test Item Value Reference Range Interpretation Comments VANCO TROUGH (test code 19.4 ug/mL 10.0-20.0 = 7702729547) ANTHONY (test code = ANTHONY) Toxic Range: ?>20 ug/mL 15-20 ug/mL is recommended for severe infection or when Vancomycin RAHEEM is greater than or equal to 2. Lab Interpretation (test Normal code = 82038-5) [facility]MAGN[facility]IUM2021-10-29 11:49:21 Test Item Value Reference Range Interpretation Comments MAGNESIUM (test code = 4347644478) 2.1 mg/dL 1.7-2.4 Lab Interpretation (test code = Normal 84235-5) [facility] METABOLIC PANEL (NA, K, CL, CO2, GLUCOSE, BUN, CREATININE, CA)2020-12-10 11:49:05 Test Item Value Reference Range Interpretation Comments NA (test code = 129 mmol/L 135-145 L 5815653736) K (test code = 3.0 mmol/L 3.5-5.0 L 9398198331) CL (test code = 103 mmol/L 98-108 3061979583) CO2 TOTAL (test code = 25 mmol/L 23-31 9264971398) AGAP (test code = 2-16 L 3367395511) BUN (test code = 10 mg/dL 7-23 3494974521) GLUCOSE (test code = 123 mg/dL 70-110 H 6051164016) CREATININE (test code = 0.84 mg/dL 0.50-1.04 7057711105) CALCIUM (test code = 8.9 mg/dL 8.6-10.6 6622095928) eGFR (test code = mL/min/1.73m2 4873623109) ANTHONY (test code = ANTHONY) Association of [...] tests). Lab Interpretation Abnormal (test code = 91938-1) [facility]2021-10-29 11:48:59 Test Item Value Reference Range Interpretation Comments PHOSPHORUS (test code = 3619540557) 1.0 mg/dL 2.5-5.0 L Lab Interpretation (test code = Abnormal 16001-9) [facility]ressB[facility] Metabolic Panel (NA, K, CL, CO2, GLUCOSE, BUN, CREATININE, CA)2020-12-10 02:21:51 Test Item Value Reference Range Interpretation Comments NA (test code = 130 mmol/L 135-145 L 7150460599) K (test code = 3.6 mmol/L 3.5-5.0 0686880917) CL (test code = 106 mmol/L 98-108 3532124358) CO2 TOTAL (test code = 21 mmol/L 23-31 L 0333723766) AGAP (test code = 2-16 2624462348) BUN (test code = 9 mg/dL 7-23 9857427408) GLUCOSE (test code = 142 mg/dL 70-110 H 7913647956) CREATININE (test code = 0.59 mg/dL 0.50-1.04 3476121448) CALCIUM (test code = 8.4 mg/dL 8.6-10.6 L 8139164196) eGFR (test code = mL/min/1.73m2 3445899133) ANTHONY (test code = ANTHONY) Association of [...] tests). Lab Interpretation Abnormal (test code = 53790-1) [facility]ress[facility]com[facility] Trough Level - Draw no more than 60 minutes before the 1330 dose.2020-12-09 20:29:37 Test Item Value Reference Range Interpretation Comments VANCO TROUGH (test code 20.9 ug/mL 10.0-20.0 H = 1202534382) ANTHONY (test code = ANTHONY) Toxic Range: ?>20 ug/mL 15-20 ug/mL is recommended for severe infection or when Vancomycin RAHEEM is greater than or equal to 2. Lab Interpretation (test Abnormal code = 92959-1) [facility] METABOLIC PANEL (NA, K, CL, CO2, GLUCOSE, BUN, CREATININE, CA)2020-12-09 11:48:35 Test Item Value Reference Range Interpretation Comments NA (test code = 129 mmol/L 135-145 L 3229749130) K (test code = 2.8 mmol/L 3.5-5.0 LL 9160502997) CL (test code = 104 mmol/L 98-108 1709428167) CO2 TOTAL (test code = 20 mmol/L 23-31 L 4411967461) AGAP (test code = 2-16 1972931180) BUN (test code = 10 mg/dL 7-23 1958115652) GLUCOSE (test code = 120 mg/dL 70-110 H 3630796119) CREATININE (test code = 0.68 mg/dL 0.50-1.04 5499417605) CALCIUM (test code = 7.9 mg/dL 8.6-10.6 L 5356287272) eGFR (test code = mL/min/1.73m2 0946792550) ANTHONY (test code = ANTHONY) Association of [...] tests). Lab Interpretation Abnormal (test code = 32799-6) [facility] Test Item Value Reference Range Interpretation Comments MAGNESIUM (test code = 7946624613) 2.2 mg/dL 1.7-2.4 Lab Interpretation (test code = Normal 16663-6) [facility]2021-10-28 11:46:48 Test Item Value Reference Range Interpretation Comments PHOSPHORUS (test code = 6088776266) 2.4 mg/dL 2.5-5.0 L Lab Interpretation (test code = Abnormal 08073-6) [facility] (NA, K, CL, CO2, GLUCOSE, BUN, CREATININE, CA)2020-12-08 12:06:15 Test Item Value Reference Range Interpretation Comments NA (test code = 130 mmol/L 135-145 L 6873641638) K (test code = 2.8 mmol/L 3.5-5.0 LL 0924046148) CL (test code = 104 mmol/L 98-108 0128810782) CO2 TOTAL (test code = 19 mmol/L 23-31 L 5179092121) AGAP (test code = 2-16 2552559031) BUN (test code = 9 mg/dL 7-23 9373095055) GLUCOSE (test code = 114 mg/dL 70-110 H 4513246465) CREATININE (test code = 0.72 mg/dL 0.50-1.04 7991623190) CALCIUM (test code = 7.9 mg/dL 8.6-10.6 L 5040882669) eGFR (test code = mL/min/1.73m2 9233430481) ANTHONY (test code = ANTHONY) Association of [...] tests). Lab Interpretation Abnormal (test code = 40480-8) [facility]2021-10-27 11:58:12 Test Item Value Reference Range Interpretation Comments MAGNESIUM (test code = 7865997284) 1.9 mg/dL 1.7-2.4 Lab Interpretation (test code = Normal 67681-7) [facility]2021-10-27 11:57:52 Test Item Value Reference Range Interpretation Comments PHOSPHORUS (test code = 4237176185) 2.7 mg/dL 2.5-5.0 Lab Interpretation (test code = Normal 43209-9) [facility]ress[facility]com[facility] Trough Level - Draw no more than 60 minutes before the 0130 dose.2020-12-08 07:49:28 Test Item Value Reference Range Interpretation Comments VANCO TROUGH (test code 18.4 ug/mL 10.0-20.0 = 8866440276) ANTHONY (test code = ANTHONY) Toxic Range: ?>20 ug/mL 15-20 ug/mL is recommended for severe infection or when Vancomycin RAHEEM is greater than or equal to 2. Lab Interpretation (test Normal code = 62842-0) [facility] WITH [id number] 13:32:28 Test Item Value Reference Range Interpretation Comments WBC (test code = See_Comment [Automated 8290-2) message] The sy stem which generated this result transmitted reference range : 4.30 - 11.10 10*3/?L. The reference range was not used to interpret this result as normal/abnormal . RBC (test code = See_Comment L [Automated 699-8) message] The sy stem which generated this [...] (test code = 50.9 fL 39.0-49.9 H 02380-3) RDW-CV (test code = 15.0 % 12.0-15.5 788-0) PLT (test code = See_Comment [Automated 777-3) message] The sy stem which generated this result transmitted reference range : 166 - 358 10*3/ ?L. The reference r miky was not used to interpret this result as normal/abnormal . MPV (test code = 11.3 fL 9.5-12.9 35901-2) NRBC/100 WBC (test See_Comment [Automat ed code = [id number]) message] The system which generated this result transmitted reference range : 0.0 - 10.0 /100 WBCs. The refer ence range was not u sed to interpret th is result as normal/abnormal . NRBC x10^3 (test code See_Comment [Auto mated = [id number]) message] The s ystem which generated this result transmitted reference range : 10*3/?L. The reference range was not used to interpret this result as normal/abnormal . GRAN MAT (NEUT) % 57.6 % (test code = 770-8) IMM GRAN % (test code 4.60 % = [id number]) LYMPH % (test code = 27.4 % 736-9) MONO % (test code = 9.9 % 5905-5) EOS % (test code = 0.2 % 713-8) BASO % (test code = 0.3 % 706-2) GRAN MAT x10^3(ANC) 3.79 10*3/uL 1.88-7.09 (test code = [id number]) IMM GRAN x10^3 (test 0.30 10*3/uL 0.00-0.06 H code = [id number]) LYMPH x10^3 (test code 1.80 10*3/uL 1.32-3.29 = 731-0) MONO x10^3 (test code 0.65 10*3/uL 0.33-0.92 = 742-7) EOS x10^3 (test code = <0.03 0.03-0.39 L 711-2) BASO x10^3 (test code <0.03 0.01-0.07 = 704-7) SCHISTOCYTES (test 1+ A code = 800-3) BANDS (test code = Increased A 3220077332) Lab Interpretation Abnormal (test code = 97510-3) [facility] 11[facility]15:12 Test Item Value Reference Range Interpretation Comments MAGNESIUM (test code = 3661838151) 2.1 mg/dL 1.7-2.4 Lab Interpretation (test code = Normal 53186-1) [facility] (NA, K, CL, CO2, GLUCOSE, BUN, CREATININE, CA)2020-12-07 11:15:11 Test Item Value Reference Range Interpretation Comments NA (test code = 133 mmol/L 135-145 L 1334687445) K (test code = 3.2 mmol/L 3.5-5.0 L 9257939048) CL (test code = 106 mmol/L 98-108 4629431794) CO2 TOTAL (test code = 18 mmol/L 23-31 L 2391963446) AGAP (test code = 2-16 4933563566) BUN (test code = 9 mg/dL 7-23 3757925404) GLUCOSE (test code = 106 mg/dL 70-110 3661083139) CREATININE (test code = 0.64 mg/dL 0.50-1.04 5409766989) CALCIUM (test code = 8.2 mg/dL 8.6-10.6 L 1400569067) eGFR (test code = mL/min/1.73m2 2008577908) ANTHONY (test code = ANTHONY) Association of [...] tests). Lab Interpretation Abnormal (test code = 82641-9) [facility] (NA, K, CL, CO2, GLUCOSE, BUN, CREATININE, CA)2020-12-07 03:01:05 Test Item Value Reference Range Interpretation Comments NA (test code = 130 mmol/L 135-145 L 5350379687) K (test code = 3.4 mmol/L 3.5-5.0 L 0090185314) CL (test code = 105 mmol/L 98-108 0827805789) CO2 TOTAL (test code = 20 mmol/L 23-31 L 3480442505) AGAP (test code = 2-16 1561725102) BUN (test code = 10 mg/dL 7-23 3946252860) GLUCOSE (test code = 117 mg/dL 70-110 H 7226567895) CREATININE (test code = 0.69 mg/dL 0.50-1.04 6700395006) CALCIUM (test code = 7.9 mg/dL 8.6-10.6 L 1605578661) eGFR (test code = mL/min/1.73m2 3879066049) ANTHONY (test code = ANTHONY) Association of [...] tests). Lab Interpretation Abnormal (test code = 52439-7) [facility] Metabolic Panel (NA, K, CL, CO2, GLUCOSE, BUN, CREATININE, CA)2020-12-06 17:09:25 Test Item Value Reference Range Interpretation Comments NA (test code = 126 mmol/L 135-145 L 3156538009) K (test code = 2.9 mmol/L 3.5-5.0 LL 9787270760) CL (test code = 104 mmol/L 98-108 5105313864) CO2 TOTAL (test code = 13 mmol/L 23-31 L 6628042077) AGAP (test code = 2-16 2195277151) BUN (test code = 11 mg/dL 7-23 8774941884) GLUCOSE (test code = 147 mg/dL 70-110 H 7148843783) CREATININE (test code = 0.80 mg/dL 0.50-1.04 0488844424) CALCIUM (test code = 7.9 mg/dL 8.6-10.6 L 6371723067) eGFR (test code = mL/min/1.73m2 3425239010) ANTHONY (test code = ANTHONY) Association of [...] tests). Lab Interpretation Abnormal (test code = 44192-2) [facility]ressMagnesium [id number] 17:05:09 Test Item Value Reference Range Interpretation Comments MAGNESIUM (test code = 6518911197) 2.3 mg/dL 1.7-2.4 Lab Interpretation (test code = Normal 03385-0) [facility] with [id number] 16:52:56 Test Item Value Reference Range Interpretation [...] (test code = 50.9 fL 39.0-49.9 H 01831-2) RDW-CV (test code = 15.0 % 12.0-15.5 788-0) PLT (test code = See_Comment [Automated 777-3) message] The sy stem which generated this result transmitted reference range : 166 - 358 10*3/ ?L. The reference r miky was not used to interpret this result as normal/abnormal . MPV (test code = 11.4 fL 9.5-12.9 21658-1) NRBC/100 WBC (test See_Comment [Automat ed code = 1052562705) message] The system which generated this result transmitted reference range : 0.0 - 10.0 /100 WBCs. The refer ence range was not u sed to interpret th is result as normal/abnormal . NRBC x10^3 (test code <0.01 See_Comment [Auto mated = 1364240326) message] The s ystem which generated this result transmitted reference range : 10*3/?L. The reference range was not used to interpret this result as normal/abnormal . GRAN MAT (NEUT) % 53.9 % (test code = 770-8) IMM GRAN % (test code 3.10 % = 1578421394) LYMPH % (test code = 30.8 % 736-9) MONO % (test code = 11.3 % 5905-5) EOS % (test code = 0.3 % 713-8) BASO % (test code = 0.6 % 706-2) GRAN MAT x10^3(ANC) 3.48 10*3/uL 1.88-7.09 (test code = 4747848637) IMM GRAN x10^3 (test 0.20 10*3/uL 0.00-0.06 H code = 1573461282) LYMPH x10^3 (test code 1.99 10*3/uL 1.32-3.29 = 731-0) MONO x10^3 (test code 0.73 10*3/uL 0.33-0.92 = 742-7) EOS x10^3 (test code = <0.03 0.03-0.39 L 711-2) BASO x10^3 (test code 0.04 10*3/uL 0.01-0.07 = 704-7) BANDS (test code = Increased A 8105929753) Lab Interpretation Abnormal (test code = 59535-0) [facility]20[facility]-25 00:30:48 Test Item Value Reference Range Interpretation Comments MAGNESIUM (test code = 9880011055) 1.4 mg/dL 1.7-2.4 L Lab Interpretation (test code = Abnormal 15043-8) [facility] (NA, K, CL, CO2, GLUCOSE, BUN, CREATININE, CA)2020-12-06 00:00:55 Test Item Value Reference Range Interpretation Comments NA (test code = 135 mmol/L 135-145 5174383572) K (test code = 2.3 mmol/L 3.5-5.0 LL 4189602786) CL (test code = 116 mmol/L 98-108 H 9882559981) CO2 TOTAL (test code = 14 mmol/L 23-31 L 4785983485) AGAP (test code = 2-16 9683664333) BUN (test code = 16 mg/dL 7-23 0611103442) GLUCOSE (test code = 98 mg/dL 70-110 0801104560) CREATININE (test code = 0.85 mg/dL 0.50-1.04 4019817957) CALCIUM (test code = 5.7 mg/dL 8.6-10.6 LL 1207249810) eGFR (test code = mL/min/1.73m2 7900059619) ANTHONY (test code = ANTHONY) Association of [...] tests). Lab Interpretation Abnormal (test code = 94821-3) [facility]ressTHYROID STIMULATING [id number] 20:54:58 Test Item Value Reference Range Interpretation Comments TSH (test code = See_Comment [Automated message] 6477713019) The system [email or web address] generated this result transmitted ref erence range: 0.45 - 4 .70 mIU/L. The refe rence range was not u sed to interpret this result as normal/abnor mal. Lab Interpretation (test Normal code = 61802-8) [facility]ressLIPASE2021-10-24 20:23:21 Test Item Value Reference Range Interpretation Comments LIPASE (test code = 1926087651) 130 U/L 0-220 Lab Interpretation (test code = Normal 97761-4) [facility]ressCB WITH [id number] 19:46:50 Test Item Value Reference Range Interpretation [...] RDW-SD (test code = 49.2 fL 39.0-49.9 66165-1) RDW-CV (test code = 14.8 % 12.0-15.5 788-0) PLT (test code = See_Comment [Automated 777-3) message] The system which generated this result transmitted reference range : 166 - 358 10*3/?L. The reference range was not used to interpret this result as normal/abnormal . MPV (test code = 11.9 fL 9.5-12.9 99757-1) NRBC/100 WBC (test See_Comment [Automat ed code = 7038945759) message] The system which generated this result transmitted reference range : 0.0 - 10.0 /100 WBCs. The reference range was not used to interpret this result as normal/abnormal . NRBC x10^3 (test code See_Comment [Auto mated = 8679835230) message] The system which generated this result transmitted reference range : 10*3/?L. The reference range was not used to interpret this result as normal/abnormal . GRAN MAT (NEUT) % 45.3 % (test code = 770-8) IMM GRAN % (test code 1.60 % = 6282554072) LYMPH % (test code = 41.5 % 736-9) MONO % (test code = 10.4 % 5905-5) EOS % (test code = 0.6 % 713-8) BASO % (test code = 0.6 % 706-2) GRAN MAT x10^3(ANC) 3.18 10*3/uL 1.88-7.09 (test code = 8325171910) IMM GRAN x10^3 (test 0.11 10*3/uL 0.00-0.06 H code = 7350277712) LYMPH x10^3 (test 2.91 10*3/uL 1.32-3.29 code = 731-0) MONO x10^3 (test code 0.73 10*3/uL 0.33-0.92 = 742-7) EOS x10^3 (test code 0.04 10*3/uL 0.03-0.39 = 711-2) BASO x10^3 (test code 0.04 10*3/uL 0.01-0.07 = 704-7) ANAAUX (test code = Present See_Comment A [Auto mated 7797-4) message] The system which generated this result transmitted reference range : (none). The reference range was not used to interpret this result as normal/abnormal . SCHISTOCYTES (test 1+ A code = 800-3) BANDS (test code = MARKED INCREASED A 1609649102) LG GRAN LYMPHS (test Rare Rare code = 9739864437) REACT LYMPHS (test Rare code = 2041190024) TOXIC CHANGES (test Present A code = 803-7) Lab Interpretation Abnormal (test code = 33896-0) [facility] GLUCOSE(AGE >30DAYS)2020-12-05 19:44:00 Test Item Value Reference Range Interpretation Comments POCT Glu (age>30days) (test code = 154 mg/dL 70-110 A 3342) Lab Interpretation (test code = Abnormal 43493-6) [facility] CypressTroponin [id number] 19:21:17 Test Item Value Reference Interpretation Comments Range TROPONIN I (test 0.008 ng/mL See_Comment [Automated code = 2518935309) message] The system which generated this result [...] biotin. Lab Interpretation Normal (test code = 89123-7) [facility]ressCOMP. METABOLIC PANEL (27170)2020-12-05 19:10:58 Test Item Value Reference Range Interpretation Comments NA (test code = 122 mmol/L 135-145 L 0889047562) K (test code = 3.2 mmol/L 3.5-5.0 L 4525072673) CL (test code = 97 mmol/L 98-108 L 4733387292) CO2 TOTAL (test code = 16 mmol/L 23-31 L 1466137036) AGAP (test code = 2-16 9683925654) BUN (test code = 21 mg/dL 7-23 2574208475) GLUCOSE (test code = 154 mg/dL 70-110 H 5202371601) CREATININE (test code = 1.40 mg/dL 0.50-1.04 H 4595145660) TOTAL BILI (test code = 0.6 mg/dL 0.1-1.6 3076675932) CALCIUM (test code = 8.6 mg/dL 8.6-10.6 1384374228) T PROTEIN (test code = 5.7 g/dL 6.3-8.2 L 5815780364) ALBUMIN (test code = 3.0 g/dL 3.5-5.0 L 0465405439) ALK PHOS (test code = 187 U/L 34-122 H 9070189387) ALTv (test code = 43 U/L 5-35 H 1742-6) AST(SGOT) (test code = 66 U/L 13-40 H 7547060516) eGFR (test code = mL/min/1.73m2 4197212328) ANTHONY (test code = ANTHONY) Association of [...] tests). Lab Interpretation Abnormal (test code = 50793-9) [facility] Test Item Value Reference Range Interpretation Comments MAGNESIUM (test code = 2153572075) 1.8 mg/dL 1.7-2.4 Lab Interpretation (test code = Normal 39226-2) [facility]ressPOCT [id number] 18:53:00 Test Item Value Reference Range Interpretation Comments POCT PREG (test code = 1605) negative POCT PREG LOT # (test code = 3575) [id number] POCT PREG TEST DATE (test 2022-02-11 code = 3576) Lab Interpretation (test code = Normal 59716-3) [facility]ressANTI-SSA(RO)2020-08-10 17:06:47 Test Item Value Reference Range Interpretation Comments ANTI-SSA(RO) (test code = Negative Negative 1853611397) ANTHONY (test code = ANTHONY) Positive - Antibody detected.Negative - No antibody detected. Lab Interpretation (test Normal code = 51042-6) [facility]ANTI-SSB(LA)2020-08-10 17:06:47 Test Item Value Reference Range Interpretation Comments Anti-SSB(LA) (test code = Negative Negative 7889552837) ANTHONY (test code = ANTHONY) Positive - Antibody detected.Negative - No antibody detected. Lab Interpretation (test Normal code = 61635-3) [facility] CypressRHEUMATOID [id number] 14:42:16 Test Item Value Reference Range Interpretation Comments RF (test code = <20 See_Comment [Automated message] 4650307207) The system [email or web address] generated this result transmitted ref erence range: <20 IU/m L. The reference range was not used to int erpret this result as normal/abnormal . Lab Interpretation (test Normal code = 21682-4) [facility]-REACTIVE [id number] 14:41:04 Test Item Value Reference Range Interpretation Comments CRP (test code = 4072519251) 0.3 mg/dL <0.8 Lab Interpretation (test code = Normal 54733-0) [facility]ressAD OR LEXX ONLY - [id number] 09:50:30 Test Item Value Reference Range Interpretation Comments RPR (Qualitative) (test code = Nonreactive Nonreactive 68792-3) Lab Interpretation (test code = Normal 01740-9) [facility] CypressHIV 1/2 AG-AB WITH [id number] 20:09:42 Test Item Value Reference Range Interpretation Comments HIV Negative Negative Semi-quantitative (test code = 00867-7) ANTHONY (test code = Non-reactive for HIV-1 ANTHONY) antigen and HIV-1/HIV-2 antibodies. ?No laboratory evidence of HIV infection. ?Repeat in 2-4 weeks if acute HIV infection is suspected. [facility] CypressSEDIMENTATION [id number] 19:49:09 Test Item Value Reference Range Interpretation Comments ESR (test code = See_Comment H [Automated message] 2441083235) The system [email or web address] generated this result transmitted ref erence range: 0 - 20 m m/HR. The reference r miky was not used to interpret this result as normal/abnor mal. Lab Interpretation (test Abnormal code = 29933-2) [facility]. METABOLIC PANEL (63475)2020-08-09 19:29:16 Test Item Value Reference Range Interpretation Comments NA (test code = 133 mmol/L 135-145 L 6236230204) K (test code = 4.4 mmol/L 3.5-5.0 3443099130) CL (test code = 97 mmol/L 98-108 L 6696594831) CO2 TOTAL (test code = 24 mmol/L 23-31 6069938045) AGAP (test code = 2-16 7098718098) BUN (test code = 21 mg/dL 7-23 1985116156) GLUCOSE (test code = 154 mg/dL 70-110 H 7990487407) CREATININE (test code = 0.86 mg/dL 0.50-1.04 0018357052) TOTAL BILI (test code = 0.5 mg/dL 0.1-1.8 8837576623) CALCIUM (test code = 10.0 mg/dL 8.6-10.6 9044124940) T PROTEIN (test code = 8.0 g/dL 6.3-8.2 1136502805) ALBUMIN (test code = 5.1 g/dL 3.5-5.0 H 6966805011) ALK PHOS (test code = 85 U/L 34-122 4902671189) ALTv (test code = 36 U/L 5-35 H 1742-6) AST(SGOT) (test code = 24 U/L 13-40 0382799105) eGFR (test code = mL/min/1.73m2 6581508589) ANTHONY (test code = ANTHONY) Association of [...] tests). Lab Interpretation Abnormal (test code = 29619-3) [facility]ressURINALYSIS2021-06-28 18:21:29 Test Item Value Reference Range Interpretation Comments APPEARANCE (test code = Clear Clear 4604164646) COLOR (test code = Yellow Yellow 2259750472) PH (test code = 4.8-8.0 5718429276) SP GRAVITY (test code = 1.003-1.030 1098648972) GLU U QUAL (test code = Normal Normal 7673477984) BLOOD (test code = Negative Negative 8605954290) KETONES (test code = Negative Negative 6865332553) PROTEIN (test code = Negative Negative 2887-8) UROBILIN (test code = Normal Normal 5838348857) BILIRUBIN (test code = Negative Negative 5290941606) NITRITE (test code = Negative Negative 7244457706) LEUK MURRAY (test code = Negative Negative 7414770622) RBC/HPF (test code = <1 See_Comment [Autom ated message] 9059481992) The system [email or web address] generated this result transmitted ref erence range: 0 - 3 HP F. The reference range was not used to int erpret this result as normal/abnormal . WBC/HPF (test code = See_Comment [Autom ated message] 2794209782) The system [email or web address] generated this result transmitted ref erence range: 0 - 5 HP F. The reference range was not used to int erpret this result as normal/abnormal . BACTERIA (test code = Negative Negative 4495749954) MUCOUS (test code = Slight Negative LPF A 2411605817) SQ EPITH (test code = <1 HPF 5294868189) Lab Interpretation (test Abnormal code = 27609-5) [facility]ressURINALYSIS2021-06-28 18:21:29 Test Item Value Reference Range Interpretation Comments APPEARANCE (test code = Clear Clear 6346232698) COLOR (test code = Yellow Yellow 8658243447) PH (test code = 4.8-8.0 7635799713) SP GRAVITY (test code = 1.003-1.030 2932520958) GLU U QUAL (test code = Normal Normal 1259175642) BLOOD (test code = Negative Negative 2947343901) KETONES (test code = Negative Negative 5253704989) PROTEIN (test code = Negative Negative 2887-8) UROBILIN (test code = Normal Normal 0374154217) BILIRUBIN (test code = Negative Negative 0845329377) NITRITE (test code = Negative Negative 9342187249) LEUK MURRAY (test code = Negative Negative 3258353585) RBC/HPF (test code = <1 See_Comment [Autom ated message] 5812818362) The system [email or web address] generated this result transmitted ref erence range: 0 - 3 HP F. The reference range was not used to int erpret this result as normal/abnormal . WBC/HPF (test code = See_Comment [Autom ated message] 5748424802) The system [email or web address] generated this result transmitted ref erence range: 0 - 5 HP F. The reference range was not used to int erpret this result as normal/abnormal . BACTERIA (test code = Negative Negative 2683958134) MUCOUS (test code = Slight Negative LPF A 9234522753) SQ EPITH (test code = <1 HPF 6307871532) Lab Interpretation (test Abnormal code = 88999-9) [facility] WITH [id number] 17:36:57 Test Item Value Reference Range Interpretation [...] RDW-SD (test code = 47.8 fL 39.0-49.9 63939-9) RDW-CV (test code = 13.4 % 12.0-15.5 788-0) PLT (test code = See_Comment [Automated 777-3) message] The sy stem which generated this result transmitted reference range : 166 - 358 10*3/ ?L. The reference r miky was not used to interpret this result as normal/abnormal . MPV (test code = 9.4 fL 9.5-12.9 L 32140-9) NRBC/100 WBC (test See_Comment [Automat ed code = 9194550037) message] The system which generated this result transmitted reference range : 0.0 - 10.0 /100 WBCs. The refer ence range was not u sed to interpret th is result as normal/abnormal . NRBC x10^3 (test code <0.01 See_Comment [Auto mated = 3470590150) message] The s ystem which generated this result transmitted reference range : 10*3/?L. The reference range was not used to interpret this result as normal/abnormal . GRAN MAT (NEUT) % 80.8 % (test code = 770-8) IMM GRAN % (test code 1.90 % = 0399333977) LYMPH % (test code = 15.0 % 736-9) MONO % (test code = 2.1 % 5905-5) EOS % (test code = 0.1 % 713-8) BASO % (test code = 0.1 % 706-2) GRAN MAT x10^3(ANC) 6.79 10*3/uL 1.88-7.09 (test code = 5142445026) IMM GRAN x10^3 (test 0.16 10*3/uL 0.00-0.06 H code = 9551180471) LYMPH x10^3 (test code 1.26 10*3/uL 1.32-3.29 L = 731-0) MONO x10^3 (test code 0.18 10*3/uL 0.33-0.92 L = 742-7) EOS x10^3 (test code = <0.03 0.03-0.39 L 711-2) BASO x10^3 (test code <0.03 0.01-0.07 = 704-7) Lab Interpretation Abnormal (test code = 83045-6) [facility] WITH [id number] 17:36:57 Test Item Value Reference Range Interpretation Comments WBC (test code = See_Comment [Automated 1190-2) message] The sy stem which generated this result transmitted reference range : 4.30 - 11.10 10*3/?L. The reference range was not used to interpret this result as normal/abnormal . RBC (test code = See_Comment L [Automated 179-8) message] The sy stem which generated this [...] RDW-SD (test code = 47.8 fL 39.0-49.9 03157-2) RDW-CV (test code = 13.4 % 12.0-15.5 788-0) PLT (test code = See_Comment [Automated 777-3) message] The sy stem which generated this result transmitted reference range : 166 - 358 10*3/ ?L. The reference r miky was not used to interpret this result as normal/abnormal . MPV (test code = 9.4 fL 9.5-12.9 L 88779-8) NRBC/100 WBC (test See_Comment [Automat ed code = 4661297618) message] The system which generated this result transmitted reference range : 0.0 - 10.0 /100 WBCs. The refer ence range was not u sed to interpret th is result as normal/abnormal . NRBC x10^3 (test code <0.01 See_Comment [Auto mated = 1639356379) message] The s ystem which generated this result transmitted reference range : 10*3/?L. The reference range was not used to interpret this result as normal/abnormal . GRAN MAT (NEUT) % 80.8 % (test code = 770-8) IMM GRAN % (test code 1.90 % = 5733506901) LYMPH % (test code = 15.0 % 736-9) MONO % (test code = 2.1 % 5905-5) EOS % (test code = 0.1 % 713-8) BASO % (test code = 0.1 % 706-2) GRAN MAT x10^3(ANC) 6.79 10*3/uL 1.88-7.09 (test code = 5967775090) IMM GRAN x10^3 (test 0.16 10*3/uL 0.00-0.06 H code = 6126487584) LYMPH x10^3 (test code 1.26 10*3/uL 1.32-3.29 L = 731-0) MONO x10^3 (test code 0.18 10*3/uL 0.33-0.92 L = 742-7) EOS x10^3 (test code = <0.03 0.03-0.39 L 711-2) BASO x10^3 (test code <0.03 0.01-0.07 = 704-7) Lab Interpretation Abnormal (test code = 31066-8) [facility]ressMENINGITIS/ENCEPHALITIS PANEL BY [id number] 22:27:23 Test Item Value Reference Range Interpretation Comments Escherichia coli K1 Negative Negative, (test code = 05123-6) Indeterminate, See Comment Haemophilus influenzae Negative Negative, (test code = 54932-8) Indeterminate, See Comment Listeria monocytogenes Negative Negative, (test code = 70724-1) Indeterminate, See Comment Neisseria meningitidis Negative Negative, (encapsulated) (test Indeterminate, code = 63316-3) See Comment Streptococcus agalactiae Negative Negative, (test code = 58802-9) Indeterminate, See Comment Streptococcus pneumoniae Negative Negative, (test code = 60825-0) Indeterminate, See Comment Cytomegalovirus (test Negative Negative, code = 08287-8) Indeterminate, See Comment Enterovirus (test code = Negative Negative, 72170-9) Indeterminate, See Comment Herpes simplex virus 1 Negative Negative, (test code = 12449-6) Indeterminate, See Comment Herpes simplex virus 2 Negative Negative, (test code = 90090-7) Indeterminate, See Comment Human herpesvirus 6 Negative Negative, (test code = 50917-2) Indeterminate, See Comment Human parechovirus (test Negative Negative, code = 02068-6) Indeterminate, See Comment Varicella zoster virus Negative Negative, (test code = 07747-1) Indeterminate, See Comment Cryptococcus Negative Negative, neoformans/gattii (test Indeterminate, code = 51091-6) See Comment ANTHONY (test code = ANTHONY) Negative:A negative result does not rule-out infection. ?This assay does not test for all potential infectious agents. Positive:A positive test result does not necessarily indicate the presence of viable organism. ? Lab Interpretation (test Normal code = 88657-6) [facility] CypressBODY FLUID DIRECT [id number] 21:52:07 Test Item Value Reference Range Interpretation Comments BF COLOR (test code = Clear 1330675003) BF WBC Count (test See_Comment [Automat ed message] The code = 2838877992) system [facility] generated this result transmit karly reference range : 0 - 5 /?L. The reference r miky was not used to interpr et this result as cassandra l/abnormal. BF RBC Count (test See_Comment [Automat ed message] The code = 5709401052) system [facility] generated this result transmit karly reference range : /?L. The reference range was not used to interpr et this result as cassandra l/abnormal. [facility] FLUID MANUAL [id number] 21:52:07BF SEGSComment: Less than 100 cells counted due to low WBC; Differential is not reported in percent.10 cells counted: 1 Neutrophils, 9 Lymphocytes, 0 Macrophages [facility] LABORATORY SERVICES#CELS CNTDUTMBLABORATORY SERVICESUnNorfolk Regional CenterROSPINAL FLUID [id number] 20:58:36 Test Item Value Reference Range Interpretation Comments T. PRO CSF (test code = 68.0 mg/dL 15.0-45.0 H 4234697814) UNSPUN BODY FLUID COLOR Light Red (test code = 5496549047) UNSPUN BODY FLUID CLARITY Cloudy (test code = 9574814947) SPUN BODY FLUID COLOR [place] (test code = 3450577655) SPUN BODY FLUID CLARITY Clear (test code = 5051928067) Sediment (test code = The se diment 7527530834) volume is <0.1 mLs of the total fl uid volume of 5cc a nd its color is re d. Lab Interpretation (test Abnormal code = 13285-4) [facility] [id number] 20:58:25 Test Item Value Reference Range Interpretation Comments GLU CSF (test code = 74 mg/dL 50-80 2104109585) UNSPUN BODY FLUID Light Red COLOR (test code = 2902946108) UNSPUN BODY FLUID Cloudy CLARITY (test code = 6504477993) SPUN BODY FLUID COLOR [place] (test code = 6899432908) SPUN BODY FLUID Clear CLARITY (test code = 3747482213) Sediment (test code = The se diment volume is 9155564559) <0.1 mLs of the total fluid volume of 5cc and its color i s red. [facility] CypressXR CHEST 1 [id number] 15:19:43 No acute cardiopulmonary process. Preliminary Report [...] this study and agree with theabove report. [facility] (AUTOMATED)2020-07-14 15:07:20 Test Item Value Reference Range Interpretation Comments POCT GLU (test code = 6482008475) 98 mg/dL 70-110 Lab Interpretation (test code = Normal 14657-9) [facility]ressC-REACTIVE [id number] 14:51:17 Test Item Value Reference Range Interpretation Comments CRP (test code = 6075896467) 0.2 mg/dL <0.8 Lab Interpretation (test code = Normal 78457-3) [facility]ressMAGNESIUM2021-06-02 14:40:38 Test Item Value Reference Range Interpretation Comments MAGNESIUM (test code = 2310543693) 2.1 mg/dL 1.7-2.4 Lab Interpretation (test code = Normal 92996-0) [facility]ressPhosphorus [id number] 13:50:50 Test Item Value Reference Range Interpretation Comments PHOSPHORUS (test code = 1213798435) 3.1 mg/dL 2.5-5.0 Lab Interpretation (test code = Normal 40971-4) [facility] Metabolic Panel (NA, K, CL, CO2, GLUCOSE, BUN, CREATININE, CA)2020-07-14 12:41:09 Test Item Value Reference Range Interpretation Comments NA (test code = 136 mmol/L 135-145 4200656134) K (test code = 4.3 mmol/L 3.5-5.0 8787584221) CL (test code = 108 mmol/L 98-108 3142880148) CO2 TOTAL (test code = 17 mmol/L 23-31 L 7627375893) AGAP (test code = 2-16 1819959928) BUN (test code = 22 mg/dL 7-23 6106252769) GLUCOSE (test code = 98 mg/dL 70-110 7994940670) CREATININE (test code = 0.70 mg/dL 0.50-1.04 6333249265) CALCIUM (test code = 9.4 mg/dL 8.6-10.6 9184529771) eGFR (test code = mL/min/1.73m2 0719258340) ANTHONY (test code = ANTHONY) Association of [...] tests). Lab Interpretation Abnormal (test code = 53643-5) [facility]ressHepatic Function Panel (ALB, T.PRO, BILI T, BU/BC, ALT, AST, ALK PHOS)2020-07-14 12:41:09 Test Item Value Reference Range Interpretation Comments TOTAL BILI (test code = 1969783964) 0.3 mg/dL 0.1-1.1 BILI UNCON (test code = 8276133297) 0.1 mg/dL 0.1-1.1 BILI CONJ (test code = 0457833885) 0.0 mg/dL 0.0-0.3 T PROTEIN (test code = 1329898342) 7.6 g/dL 6.3-8.2 ALBUMIN (test code = 7142040795) 4.6 g/dL 3.5-5.0 ALK PHOS (test code = 2508137311) 120 U/L 34-122 ALTv (test code = 1742-6) 42 U/L 5-35 H AST(SGOT) (test code = 8145299637) 24 U/L 13-40 Lab Interpretation (test code = Abnormal 41909-5) [facility] CypressUrinalysis2021-06-02 10:22:07 Test Item Value Reference Range Interpretation Comments APPEARANCE (test code = Clear Clear 4389828873) COLOR (test code = Yellow Yellow 1427936025) PH (test code = 4.8-8.0 8735382033) SP GRAVITY (test code = 1.003-1.030 4467103261) GLU U QUAL (test code = Normal Normal 6318134647) BLOOD (test code = Negative Negative 2846796480) KETONES (test code = Negative Negative 3225620226) PROTEIN (test code = Negative Negative 2887-8) UROBILIN (test code = Normal Normal 3680688790) BILIRUBIN (test code = Negative Negative 5744809902) NITRITE (test code = Negative Negative 5124478430) LEUK MURRAY (test code = Negative Negative 4888176861) RBC/HPF (test code = See_Comment [Autom ated message] 3947032985) The system [email or web address] generated this result transmitted ref erence range: 0 - 3 HP F. The reference range was not used to int erpret this result as normal/abnormal . WBC/HPF (test code = See_Comment [Autom ated message] 1986674153) The system [employer] generated this result transmitted ref erence range: 0 - 5 HP F. The reference range was not used to int erpret this result as normal/abnormal . BACTERIA (test code = Negative Negative 1640975258) MUCOUS (test code = Slight Negative LPF A 6735601937) SQ EPITH (test code = See_Comment [Auto mated message] 4253587660) The system [employer] generated this result transmitted ref erence range: <=2 HPF. The reference range was not used to int erpret this result as normal/abnormal . Lab Interpretation (test Abnormal code = 51928-5) [facility]ressCOVID-19 (ID NOW RAPID TESTING)2020-07-14 09:45:51 Test Item Value Reference Range Interpretation Comments SARS-CoV-2 Rapid ID NOW Not Detected Not Detected (test code = 52179-3) ANTHONY (test code = ANTHONY) ID NOW COVID-19 Assay is an isothermal nucleic acid amplification test intended for the qualitative detection of nucleic acid from SARS-CoV-2 viral RNA in nasopharyngeal (ACUTE DIALYSIS NURSE) specimens. It is used under Emergency Use [...] indicated. Lab Interpretation Normal (test code = 57608-3) [facility] with [id number] 02:07:47 Test Item Value Reference Range Interpretation [...] RDW-SD (test code = 47.8 fL 39.0-49.9 49612-3) RDW-CV (test code = 13.6 % 12.0-15.5 788-0) PLT (test code = See_Comment H [Automated 777-3) message] The system which generated this result transmit karly reference range : 166 - 358 10*3/ ?L. The reference range was not u sed to interpret th is result as normal/abnormal . MPV (test code = 10.6 fL 9.5-12.9 24788-7) NRBC/100 WBC (test See_Comment [Automat ed code = 2207777304) message] The system which generated this result transmit karly reference range : 0.0 - 10.0 /100 WBCs. The reference range was not used to interpret this result as normal/abnormal . NRBC x10^3 (test code See_Comment [Auto mated = 7674383315) message] The system which generated this result transmit karly reference range : 10*3/?L. The reference range was not used to interpret this result as normal/abnormal . GRAN MAT (NEUT) % 70.5 % (test code = 770-8) IMM GRAN % (test code 1.60 % = 5165647559) LYMPH % (test code = 20.8 % 736-9) MONO % (test code = 6.8 % 5905-5) EOS % (test code = 0.1 % 713-8) BASO % (test code = 0.2 % 706-2) GRAN MAT x10^3(ANC) 12.19 10*3/uL 1.88-7.09 H (test code = 3745786504) IMM GRAN x10^3 (test 0.27 10*3/uL 0.00-0.06 H code = 6279476130) LYMPH x10^3 (test code 3.58 10*3/uL 1.32-3.29 H = 731-0) MONO x10^3 (test code 1.17 10*3/uL 0.33-0.92 H = 742-7) EOS x10^3 (test code = <0.03 0.03-0.39 L 711-2) BASO x10^3 (test code 0.03 10*3/uL 0.01-0.07 = 704-7) Lab Interpretation Abnormal (test code = 92802-7) [facility] CypressSEDIMENTATION [id number] 02:02:09 Test Item Value Reference Range Interpretation Comments ESR (test code = See_Comment H [Automated message] 7375906804) The system [employer] h generated this result transmitted ref erence range: 0 - 20 m m/HR. The reference r miky was not used to interpret this result as normal/abnor mal. Lab Interpretation (test Abnormal code = 50898-8) [facility] WITH [id number] 03:30:13 Test Item Value Reference Range Interpretation [...] RDW-SD (test code = 48.1 fL 39.0-49.9 46278-9) RDW-CV (test code = 13.3 % 12.0-15.5 788-0) PLT (test code = See_Comment [Automated 777-3) message] The sy stem which generated this result transmitted reference range : 166 - 358 10*3/ ?L. The reference r miky was not used to interpret this result as normal/abnormal . MPV (test code = 10.4 fL 9.5-12.9 08101-0) NRBC/100 WBC (test See_Comment [Automat ed code = 4241969270) message] The system which generated this result transmitted reference range : 0.0 - 10.0 /100 WBCs. The refer ence range was not u sed to interpret th is result as normal/abnormal . NRBC x10^3 (test code <0.01 See_Comment [Auto mated = 3443788674) message] The s ystem which generated this result transmitted reference range : 10*3/?L. The reference range was not used to interpret this result as normal/abnormal . GRAN MAT (NEUT) % 44.6 % (test code = 770-8) IMM GRAN % (test code 0.80 % = 7478744970) LYMPH % (test code = 43.3 % 736-9) MONO % (test code = 10.0 % 5905-5) EOS % (test code = 0.9 % 713-8) BASO % (test code = 0.4 % 706-2) GRAN MAT x10^3(ANC) 3.52 10*3/uL 1.88-7.09 (test code = 1386680939) IMM GRAN x10^3 (test 0.06 10*3/uL 0.00-0.06 code = 1379658095) LYMPH x10^3 (test code 3.42 10*3/uL 1.32-3.29 H = 731-0) MONO x10^3 (test code 0.79 10*3/uL 0.33-0.92 = 742-7) EOS x10^3 (test code = 0.07 10*3/uL 0.03-0.39 711-2) BASO x10^3 (test code 0.03 10*3/uL 0.01-0.07 = 704-7) Lab Interpretation Abnormal (test code = 03919-1) [facility] CypressLIPASE2021-05-23 19:38:39 Test Item Value Reference Range Interpretation Comments LIPASE (test code = 3755411363) 39 U/L 0-220 Lab Interpretation (test code = Normal 03675-2) [facility] CypressCOMP. METABOLIC PANEL (09543)2020-07-04 19:20:59 Test Item Value Reference Range Interpretation Comments NA (test code = 138 mmol/L 135-145 2503619502) K (test code = 3.9 mmol/L 3.5-5.0 0320554965) CL (test code = 101 mmol/L 98-108 2962329780) CO2 TOTAL (test code = 27 mmol/L 23-31 2809592362) AGAP (test code = 2-16 3638088738) BUN (test code = 20 mg/dL 7-23 0702265699) GLUCOSE (test code = 105 mg/dL 70-110 6208085902) CREATININE (test code = 0.78 mg/dL 0.50-1.04 8913815506) TOTAL BILI (test code = 0.4 mg/dL 0.1-1.8 3513752117) CALCIUM (test code = 9.8 mg/dL 8.6-10.6 9954700490) T PROTEIN (test code = 9.1 g/dL 6.3-8.2 H 0421563777) ALBUMIN (test code = 4.9 g/dL 3.5-5.0 2852643137) ALK PHOS (test code = 171 U/L 34-122 H 9249793483) ALTv (test code = 136 U/L 5-35 H 1742-6) AST(SGOT) (test code = 82 U/L 13-40 H 6750332542) eGFR (test code = mL/min/1.73m2 3904322987) ANTHONY (test code = ANTHONY) Association of [...] tests). Lab Interpretation Abnormal (test code = 40165-4) [facility] CypressUrinalysis2021-05-23 19:14:12 Test Item Value Reference Range Interpretation Comments APPEARANCE (test code = Clear Clear 8217492633) COLOR (test code = Yellow Yellow 1873789507) PH (test code = 4.8-8.0 9873079392) SP GRAVITY (test code = 1.003-1.030 7653110712) GLU U QUAL (test code = Normal Normal 7043617654) BLOOD (test code = Negative Negative 3671042048) KETONES (test code = Negative Negative 9062136976) PROTEIN (test code = Negative Negative 2887-8) UROBILIN (test code = Normal Normal 3475267490) BILIRUBIN (test code = Negative Negative 5791705017) NITRITE (test code = Negative Negative 0467695731) LEUK MURRAY (test code = 75/uL Negative A 5809792247) RBC/HPF (test code = See_Comment [Autom ated message] 6969459923) The system [email or web address] generated this result transmitted ref erence range: 0 - 3 HP F. The reference range was not used to int erpret this result as normal/abnormal . WBC/HPF (test code = See_Comment H [Autom ated message] 5625608736) The system [employer] generated this result transmitted ref erence range: 0 - 5 HP F. The reference range was not used to int erpret this result as normal/abnormal . BACTERIA (test code = Negative Negative 3387951779) MUCOUS (test code = Slight Negative LPF A 3545612631) SQ EPITH (test code = HPF 9865050274) Lab Interpretation (test Abnormal code = 22718-0) [facility] WITH [id number] 19:10:40 Test Item Value Reference Range Interpretation [...] RDW-SD (test code = 47.2 fL 39.0-49.9 62930-9) RDW-CV (test code = 13.2 % 12.0-15.5 788-0) PLT (test code = See_Comment [Automated 777-3) message] The sy stem which generated this result transmitted reference range : 166 - 358 10*3/ ?L. The reference r miky was not used to interpret this result as normal/abnormal . MPV (test code = 10.5 fL 9.5-12.9 25123-4) NRBC/100 WBC (test See_Comment [Automat ed code = 6345958980) message] The system which generated this result transmitted reference range : 0.0 - 10.0 /100 WBCs. The refer ence range was not u sed to interpret th is result as normal/abnormal . NRBC x10^3 (test code <0.01 See_Comment [Auto mated = 4144475535) message] The s ystem which generated this result transmitted reference range : 10*3/?L. The reference range was not used to interpret this result as normal/abnormal . GRAN MAT (NEUT) % 54.8 % (test code = 770-8) IMM GRAN % (test code 0.80 % = 7600270490) LYMPH % (test code = 32.1 % 736-9) MONO % (test code = 10.3 % 5905-5) EOS % (test code = 1.7 % 713-8) BASO % (test code = 0.3 % 706-2) GRAN MAT x10^3(ANC) 3.46 10*3/uL 1.88-7.09 (test code = 9017650381) IMM GRAN x10^3 (test 0.05 10*3/uL 0.00-0.06 code = 5798374852) LYMPH x10^3 (test code 2.03 10*3/uL 1.32-3.29 = 731-0) MONO x10^3 (test code 0.65 10*3/uL 0.33-0.92 = 742-7) EOS x10^3 (test code = 0.11 10*3/uL 0.03-0.39 711-2) BASO x10^3 (test code <0.03 0.01-0.07 = 704-7) Lab Interpretation Abnormal (test code = 20928-5) [facility] CypressZOLTAN [id number] 17:09:15 Test Item Value Reference Range Interpretation Comments TROPONIN I (test 0.000 ng/mL See_Comment [Automated code = 1148082526) message] The system which generated this result [...] ? Lab Interpretation Normal (test code = 20087-3) [facility] CypressMR BRAIN WO [id number] 15:28:24 Within the limitation of motion degrading [...] the head was done withoutcontrast on 1.5 Kaatrina magnetFINDINGS:Motion degrading image quality.The ventricles and cerebral [...] reviewed this study and agree with theabove report.[facility] CypressCT ANGIOGRAM [id number] 01:50:14 No large vessel occlusion or flow-limiting stenosis is identified in thehead and neck arteries. Follow-up with dedicated thyroid ultrasound on a non- emergent, outpatientbasis is recommended for further characterization. Preliminary Report Dictated by Resident: Auyr Hallman MD., have reviewed this study and agree with theabove report.EXAM: CT ANGIOGRAM HEAD, CT ANGIOGRAM NECK HISTORY: ?Headache, intracranial hemorrhage suspected TECHNIQUE: Axial CT imaging of the [place] and from the skull baseto the superior mediastinum was obtained during arterial phase after theintravenous administration of IV contrast. Coronal, sagittal, and MIPS wereconstructed. COMPARISON: Sameday CT head FINDINGS: CTA HEAD: The PICA origin is visualized bilaterally. The basilar artery is normal incaliber. Common origin of the left superior cerebellar and PROGRESS CLERK is noted.The superior cerebellararteries are patent. The posterior cerebralarteries are patent. A right PROGRESS CLERK is identified. A sm all leftposterior communicating [...] suspected TECHNIQUE: Axial CT imaging of the [place] and from the skull baseto the superior mediastinum was obtained during arterial phase after theintravenous administration of IV contrast. Coronal, sagittal, and MIPS wereconstructed.COMPARISON: Same day CT headFINDINGS:CTA HEAD:The PICA origin is visualized bilaterally. The basilar artery is normal incaliber. Common origin of the left superior cerebellar and PROGRESS CLERK is noted.The superior cerebellar arteries are patent. The posterior cerebralarteries are patent. A right PROGRESS CLERK is identified. A small leftposterior communicating artery [...] reviewed this study and agree with theabove report.[facility]ressCT ANGIOGRAM [id number] 01:50:14 No large vessel occlusion or flow-limiting stenosis is identified in thehead and neck arteries. Follow-up with dedicated thyroid ultrasound on a non-emergent, outpatientbasis is recommended for further characterization. Preliminary Report Dictated by Resident: Aury Hallman MD., have reviewed this study and agree with theabove report.EXAM: CT ANGIOGRAM HEAD, CT ANGIOGRAM NECK HISTORY: ?Headache, intracranial hemorrhage suspected TECHNIQUE: Axial CT imaging of the [place] and from the skull baseto the superior mediastinum was obtained during arterial phase after theintravenous administration of IV contrast. Coronal, sagittal, and MIPS wereconstructed. COMPARISON: Sameday CT head FINDINGS: CTA HEAD: The PICA origin is visualized bilaterally. The basilar artery is normal incaliber. Common origin of the left superior cerebellar and PROGRESS CLERK is noted.The superior cerebellararteries are patent. The posterior cerebralarteries are patent. A right PROGRESS CLERK is identified. A sm all leftposterior communicating [...] identified. Kyphotic reversal of the cervical spine. [facility], Radiant Results Inft User - 06/26/2020 8:51 PM CDTEXAM: CT ANGIOGRAM HEAD, CT ANGIOGRAM NECKHISTORY: Headache, intracranial hemorrhage suspected TECHNIQUE: Axial CT imaging of the [place] and from the skull baseto the superior mediastinum was obtained during arterial phase after theintravenous administration of IV contrast. Coronal, sagittal, and MIPS wereconstructed.COMPARISON: Same day CT headFINDINGS:CTA HEAD:The PICA origin is visualized bilaterally. The basilar artery is normal incaliber. Common origin of the left superior cerebellar and PROGRESS CLERK is noted.The superior cerebellar arteries are patent. The posterior cerebralarteries are patent. A right PROGRESS CLERK is identified. A small leftposterior communicating artery [...] reviewed this study and agree with theabove report.[facility] CypressSEDIMENTATION [id number] 01:00:08 Test Item Value Reference Range Interpretation Comments ESR (test code = See_Comment H [Automated message] 6937325899) The system [email or web address] generated this result transmitted ref erence range: 0 - 20 m m/HR. The reference r miky was not used to interpret this result as normal/abnor mal. Lab Interpretation (test Abnormal code = 55638-1) [facility] CypressCT HEAD WO [id number] 00:39:04 No acute intracranial hemorrhage or mass [...] reviewed this study and agree with theabove report.[facility] CypressCOVID-19 (ID NOW RAPID TESTING)2020-06-26 22:58:15 Test Item Value Reference Range Interpretation Comments SARS-CoV-2 Rapid ID NOW Not Detected Not Detected (test code = 26333-5) ANTHONY (test code = ANTHONY) ID NOW COVID-19 Assay is an isothermal nucleic acid amplification test intended for the qualitative detection of nucleic acid from SARS-CoV-2 viral RNA in nasopharyngeal (ACUTE DIALYSIS NURSE) specimens. It is used under Emergency Use [...] indicated. Lab Interpretation Normal (test code = 72407-8) [facility] 1 [id number] 22:12:42 No acute cardiopulmonary abnormality. Preliminary Report [...] reviewed this study and agree with the abovereport.[facility] CypressUrinalysis 2020-06-26 21:49:50 Test Item Value Reference Range Interpretation Comments APPEARANCE (test code = Clear Clear 8310344201) COLOR (test code = Yellow Yellow 4729340173) PH (test code = 4.8-8.0 4102847190) SP GRAVITY (test code = 1.003-1.030 2066700576) GLU U QUAL (test code = Normal Normal 6461089767) BLOOD (test code = Negative Negative 3705558197) KETONES (test code = Negative Negative 2366501229) PROTEIN (test code = Negative Negative 2887-8) UROBILIN (test code = Normal Normal 6507621933) BILIRUBIN (test code = Negative Negative 8577856247) NITRITE (test code = Negative Negative 8639617362) LEUK MRURAY (test code = Negative Negative 3079363912) RBC/HPF (test code = See_Comment [Autom ated message] 7204066330) The system [email or web address] generated this result transmitted ref erence range: 0 - 3 HP F. The reference range was not used to int erpret this result as normal/abnormal . WBC/HPF (test code = See_Comment [Autom ated message] 1890639004) The system [email or web address] generated this result transmitted ref erence range: 0 - 5 HP F. The reference range was not used to int erpret this result as normal/abnormal . BACTERIA (test code = Negative Negative 5530170139) MUCOUS (test code = Slight Negative LPF A 7366357281) SQ EPITH (test code = HPF 0863630503) Lab Interpretation (test Abnormal code = 72911-5) [facility] CypressTroponin [id number] 21:18:44 Test Item Value Reference Range Interpretation Comments TROPONIN I (test <0.012 See_Comment [Automated code = 1125761099) message] The system which generated this result [...] ? Lab Interpretation Normal (test code = 99777-1) [facility] CypressBasi Metabolic Panel (NA, K, CL, CO2, GLUCOSE, BUN, CREATININE, CA)2020-06-26 21:07:49 Test Item Value Reference Range Interpretation Comments NA (test code = 141 mmol/L 135-145 0814166472) K (test code = 4.1 mmol/L 3.5-5.0 0291920143) CL (test code = 109 mmol/L 98-108 H 8884145202) CO2 TOTAL (test code = 23 mmol/L 23-31 6443470379) AGAP (test code = 2-16 0562134487) BUN (test code = 19 mg/dL 7-23 5987981550) GLUCOSE (test code = 112 mg/dL 70-110 H 1937436899) CREATININE (test code = 0.87 mg/dL 0.50-1.04 0047648255) CALCIUM (test code = 9.6 mg/dL 8.6-10.6 2417797945) eGFR (test code = mL/min/1.73m2 5503590875) ANTHONY (test code = ANTHONY) Association of [...] tests). Lab Interpretation Abnormal (test code = 84700-5) [facility] CypressHepatic Function Panel (ALB, T.PRO, BILI T, BU/BC, ALT, AST, ALK PHOS)2020-06-26 21:07:28 Test Item Value Reference Range Interpretation Comments TOTAL BILI (test code = 2674229150) 0.3 mg/dL 0.1-1.1 BILI UNCON (test code = 3573866900) 0.1 mg/dL 0.1-1.1 BILI CONJ (test code = 4641403037) 0.0 mg/dL 0.0-0.3 T PROTEIN (test code = 4516154973) 7.4 g/dL 6.3-8.2 ALBUMIN (test code = 2263818131) 4.4 g/dL 3.5-5.0 ALK PHOS (test code = 2910811960) 138 U/L 34-122 H ALTv (test code = 1742-6) 32 U/L 5-35 AST(SGOT) (test code = 8499439216) 40 U/L 13-40 Lab Interpretation (test code = Abnormal 49014-6) [facility] with [id number] 20:55:04 Test Item Value Reference Range Interpretation [...] RDW-SD (test code = 49.3 fL 39.0-49.9 56130-3) RDW-CV (test code = 13.7 % 12.0-15.5 788-0) PLT (test code = See_Comment [Automated 777-3) message] The sy stem which generated this result transmitted reference range : 166 - 358 10*3/ ?L. The reference r miky was not used to interpret this result as normal/abnormal . MPV (test code = 10.7 fL 9.5-12.9 02644-4) NRBC/100 WBC (test See_Comment [Automat ed code = 2309109974) message] The system which generated this result transmitted reference range : 0.0 - 10.0 /100 WBCs. The refer ence range was not u sed to interpret th is result as normal/abnormal . NRBC x10^3 (test code <0.01 See_Comment [Auto mated = 5432617456) message] The s ystem which generated this result transmitted reference range : 10*3/?L. The reference range was not used to interpret this result as normal/abnormal . GRAN MAT (NEUT) % 57.2 % (test code = 770-8) IMM GRAN % (test code 0.20 % = 2152128581) LYMPH % (test code = 31.8 % 736-9) MONO % (test code = 9.9 % 5905-5) EOS % (test code = 0.6 % 713-8) BASO % (test code = 0.3 % 706-2) GRAN MAT x10^3(ANC) 3.80 10*3/uL 1.88-7.09 (test code = 0209057292) IMM GRAN x10^3 (test <0.03 0.00-0.06 code = 7398940513) LYMPH x10^3 (test code 2.11 10*3/uL 1.32-3.29 = 731-0) MONO x10^3 (test code 0.66 10*3/uL 0.33-0.92 = 742-7) EOS x10^3 (test code = 0.04 10*3/uL 0.03-0.39 711-2) BASO x10^3 (test code <0.03 0.01-0.07 = 704-7) Lab Interpretation Abnormal (test code = 29665-7) [facility] 11:34:39 Test Item Value Reference Range Interpretation Comments NA (test code = 137 mmol/L 135-145 5750404228) K (test code = 4.3 mmol/L 3.5-5.0 2678097729) CL (test code = 106 mmol/L 98-108 5016965264) CO2 TOTAL (test code = 26 mmol/L 23-31 0623122229) AGAP (test code = 2-16 5746739990) BUN (test code = 13 mg/dL 7-23 3569378961) GLUCOSE (test code = 81 mg/dL 70-110 7256743114) CREATININE (test code = 0.76 mg/dL 0.50-1.04 5801225933) TOTAL BILI (test code = 0.4 mg/dL 0.1-1.2 1409980580) CALCIUM (test code = 8.5 mg/dL 8.6-10.6 L 3425201821) T PROTEIN (test code = 6.0 g/dL 6.3-8.2 L 8894396862) ALBUMIN (test code = 3.5 g/dL 3.5-5.0 3685483770) ALK PHOS (test code = 128 U/L 34-122 H 7007845747) ALTv (test code = 54 U/L 5-35 H 1742-6) AST(SGOT) (test code = 51 U/L 13-40 H 8882682671) eGFR (test code = mL/min/1.73m2 1022248745) ANTHONY (test code = ANTHONY) Association of [...] tests). Lab Interpretation Abnormal (test code = 23302-8) [facility]ressLAB ONLY COVID [id number] 02:48:13COVID DMT InterpretationInterpretation/Recommendations: Molecular NAAT Tests for [...] COVID-19 testing the patient has had at [facility], including molecular NAAT testing (more commonly known as PCR testing and Rapid ID Now testing) and antibody testing. It does not take into account any testing that a patient has had outside of the [facility] medical record. [facility] LABORATORY SERVICESCOVID ResultsSA RS-CoV-2 Rapid ID NOW (no units) ? ? Date ? Value ? 05/30/2020 ? Not Detected ? [facility] LABORATORY SERVICES [facility] METABOLIC PANEL (NA, K, CL, CO2, GLUCOSE, BUN, CREATININE, CA)2020-05-31 15:23:27 Test Item Value Reference Range Interpretation Comments NA (test code = 137 mmol/L 135-145 2612167779) K (test code = 4.0 mmol/L 3.5-5.0 0750938227) CL (test code = 105 mmol/L 98-108 7426810663) CO2 TOTAL (test code 27 mmol/L 23-31 = 1854829104) AGAP (test code = 2-16 1152609545) BUN (test code = 14 mg/dL 7-23 9380421383) GLUCOSE (test code = 92 mg/dL 70-110 0330913703) CREATININE (test code 0.72 mg/dL 0.50-1.04 = 6147590958) CALCIUM (test code = 8.8 mg/dL 8.6-10.6 5042565860) eGFR (test code = mL/min/1.73m2 3824163591) ANTHONY (test code = ANTHONY) Association of [...] urine or abnormalities in imaging tests). [facility] with Vwsgqgofykho8130-86-67 12:40:08 Test Item Value Reference Range Interpretation [...] (test code = 51.6 fL 39.0-49.9 H 31950-5) RDW-CV (test code = 14.3 % 12.0-15.5 788-0) PLT (test code = See_Comment [Automated 777-3) message] The sy stem which generated this result transmitted reference range : 166 - 358 10*3/ ?L. The reference r miky was not used to interpret this result as normal/abnormal . MPV (test code = 10.0 fL 9.5-12.9 72548-9) NRBC/100 WBC (test See_Comment [Automat ed code = 0328940210) message] The system which generated this result transmitted reference range : 0.0 - 10.0 /100 WBCs. The refer ence range was not u sed to interpret th is result as normal/abnormal . NRBC x10^3 (test code <0.01 See_Comment [Auto mated = 7364159647) message] The s ystem which generated this result transmitted reference range : 10*3/?L. The reference range was not used to interpret this result as normal/abnormal . GRAN MAT (NEUT) % 40.2 % (test code = 770-8) IMM GRAN % (test code 0.40 % = 5518636285) LYMPH % (test code = 47.8 % 736-9) MONO % (test code = 10.5 % 5905-5) EOS % (test code = 0.9 % 713-8) BASO % (test code = 0.2 % 706-2) GRAN MAT x10^3(ANC) 2.15 10*3/uL 1.88-7.09 (test code = 2458374774) IMM GRAN x10^3 (test <0.03 0.00-0.06 code = 8567106514) LYMPH x10^3 (test code 2.55 10*3/uL 1.32-3.29 = 731-0) MONO x10^3 (test code 0.56 10*3/uL 0.33-0.92 = 742-7) EOS x10^3 (test code = 0.05 10*3/uL 0.03-0.39 711-2) BASO x10^3 (test code <0.03 0.01-0.07 = 704-7) Lab Interpretation Abnormal (test code = 07024-8) [facility] WO [id number] 21:54:53 1. ?Nonobstructive left nephrolithiasis. No striated [...] Resident: Toña Segovia, Reno Jones MD., have r eviewed this study and agree with theabove report.[facility]OVID[facility] (ID NOW RAPID TESTING)2020-05-30 20:50:01 Test Item Value Reference Range Interpretation Comments SARS-CoV-2 Rapid ID NOW Not Detected Not Detected (test code = 77472-0) ANTHONY (test code = ANTHONY) ID NOW COVID-19 Assay is an isothermal nucleic acid amplification test intended for the qualitative detection of nucleic acid from SARS-CoV-2 viral RNA in nasopharyngeal (ACUTE DIALYSIS NURSE) specimens. It is used under Emergency Use [...] indicated. Lab Interpretation Normal (test code = 47612-3) [facility] Metabolic Panel (NA, K, CL, CO2, GLUCOSE, BUN, CREATININE, CA)2020-05-30 20:40:22 Test Item Value Reference Range Interpretation Comments NA (test code = 139 mmol/L 135-145 1224161908) K (test code = 4.0 mmol/L 3.5-5.0 1425208878) CL (test code = 105 mmol/L 98-108 7977700267) CO2 TOTAL (test code 25 mmol/L 23-31 = 7613526231) AGAP (test code = 2-16 0098173829) BUN (test code = 18 mg/dL 7-23 4665066718) GLUCOSE (test code = 100 mg/dL 70-110 5524337702) CREATININE (test code 0.66 mg/dL 0.50-1.04 = 4720968521) CALCIUM (test code = 9.2 mg/dL 8.6-10.6 9123770229) eGFR (test code = mL/min/1.73m2 5690842735) ANTHONY (test code = ANTHONY) Association of [...] or urine or abnormalities in imaging tests). [facility] (ALB, T.PRO, BILI T, BU/BC, ALT, AST, ALK PHOS)2020-05-30 20:40:22 Test Item Value Reference Range Interpretation Comments TOTAL BILI (test code = 9182454756) 0.4 mg/dL 0.1-1.1 BILI UNCON (test code = 6094281985) 0.2 mg/dL 0.1-1.1 BILI CONJ (test code = 9008347098) 0.0 mg/dL 0.0-0.3 T PROTEIN (test code = 0792486981) 7.7 g/dL 6.3-8.2 ALBUMIN (test code = 2232574277) 4.6 g/dL 3.5-5.0 ALK PHOS (test code = 0129801221) 158 U/L 34-122 H ALTv (test code = 1742-6) 70 U/L 5-35 H AST(SGOT) (test code = 7238549246) 46 U/L 13-40 H Lab Interpretation (test code = Abnormal 96081-5) [facility]aPTT2021-04-18 20:37:21 Test Item Value Reference Range Interpretation Comments APTT Patient (test See_Comment [Automat ed code = 3173-2) message] The system which generated this result transmitted reference range : 23 - 38 Seconds . The reference range was not used to interpr et this result as normal/abnormal . ANTHONY (test code = ANTHONY) The [facility] patient population mean normal value for aPTT is 30 seconds. Lab Interpretation Normal (test code = 41198-1) [facility] CypressProthrombin Time (PT) / [id number] 20:35:00 Test Item Value Reference Range Interpretation [...] tions. Lab Interpretation (test Normal code = 37425-7) [facility] CypressUrinalysis2021-04-18 20:34:10 Test Item Value Reference Range Interpretation Comments APPEARANCE (test code = Clear Clear 3334718513) COLOR (test code = Yellow Yellow 7275451827) PH (test code = 4.8-8.0 4796945005) SP GRAVITY (test code = 1.003-1.030 2413350454) GLU U QUAL (test code = Normal Normal 5067531320) BLOOD (test code = Negative Negative 7076293177) KETONES (test code = Negative Negative 1870402884) PROTEIN (test code = Negative Negative 2887-8) UROBILIN (test code = Normal Normal 0000977482) BILIRUBIN (test code = Negative Negative 9375522716) NITRITE (test code = Negative Negative 1734627681) LEUK MURRAY (test code = 25/uL Negative A 4324153922) RBC/HPF (test code = See_Comment [Autom ated message] 5036401471) The system whic h generated this result transmitted ref erence range: 0 - 3 HP F. The reference range was not used to int erpret this result as normal/abnormal . WBC/HPF (test code = See_Comment [Autom ated message] 5071697954) The system whic h generated this result transmitted ref erence range: 0 - 5 HP F. The reference range was not used to int erpret this result as normal/abnormal . BACTERIA (test code = Few Negative A 6826265983) MUCOUS (test code = Slight Negative LPF A 0429882645) SQ EPITH (test code = HPF 0023495293) Lab Interpretation (test Abnormal code = 57962-5) [facility] with Twvdbmoebcan4132-49-11 20:27:23 Test Item Value Reference Range Interpretation [...] RDW-SD (test code = 49.6 fL 39.0-49.9 30581-5) RDW-CV (test code = 14.1 % 12.0-15.5 788-0) PLT (test code = See_Comment [Automated 777-3) message] The sy stem which generated this result transmitted reference range : 166 - 358 10*3/ ?L. The reference r miky was not used to interpret this result as normal/abnormal . MPV (test code = 9.7 fL 9.5-12.9 92111-2) NRBC/100 WBC (test See_Comment [Automat ed code = 4972692225) message] The system which generated this result transmitted reference range : 0.0 - 10.0 /100 WBCs. The refer ence range was not u sed to interpret th is result as normal/abnormal . NRBC x10^3 (test code <0.01 See_Comment [Auto mated = 1809218289) message] The s ystem which generated this result transmitted reference range : 10*3/?L. The reference range was not used to interpret this result as normal/abnormal . GRAN MAT (NEUT) % 49.6 % (test code = 770-8) IMM GRAN % (test code 0.30 % = 4578220934) LYMPH % (test code = 38.7 % 736-9) MONO % (test code = 10.4 % 5905-5) EOS % (test code = 0.8 % 713-8) BASO % (test code = 0.2 % 706-2) GRAN MAT x10^3(ANC) 3.26 10*3/uL 1.88-7.09 (test code = 7161984396) IMM GRAN x10^3 (test <0.03 0.00-0.06 code = 9943149616) LYMPH x10^3 (test code 2.54 10*3/uL 1.32-3.29 = 731-0) MONO x10^3 (test code 0.68 10*3/uL 0.33-0.92 = 742-7) EOS x10^3 (test code = 0.05 10*3/uL 0.03-0.39 711-2) BASO x10^3 (test code <0.03 0.01-0.07 = 704-7) Lab Interpretation Abnormal (test code = 31869-2) [facility] CypressLactic Acid Whole [id number] 20:24:41 Test Item Value Reference Range Interpretation Comments LACTIC ACID (test code = 1.17 mmol/L 0.50-2.20 3720467344) Lab Interpretation (test code = Normal 24866-5) [facility] CypressUrinalysis2021-04-15 00:29:10 Test Item Value Reference Range Interpretation Comments APPEARANCE (test code = Clear Clear 0228666588) COLOR (test code = Yellow Yellow 1819896141) PH (test code = 4.8-8.0 8695527406) SP GRAVITY (test code = 1.003-1.030 5224907246) GLU U QUAL (test code = Normal Normal 0259055992) BLOOD (test code = Negative Negative 1634175965) KETONES (test code = Negative Negative 6570248206) PROTEIN (test code = Negative Negative 2887-8) UROBILIN (test code = Normal Normal 8398383168) BILIRUBIN (test code = Negative Negative 9287291324) NITRITE (test code = Negative Negative 9521119551) LEUK MURRAY (test code = 25/uL Negative A 7058718342) RBC/HPF (test code = See_Comment [Autom ated message] 7296463023) The system [email or web address] generated this result transmitted ref erence range: 0 - 3 HP F. The reference range was not used to int erpret this result as normal/abnormal . WBC/HPF (test code = See_Comment H [Autom ated message] 5834457025) The system [email or web address] generated this result transmitted ref erence range: 0 - 5 HP F. The reference range was not used to int erpret this result as normal/abnormal . BACTERIA (test code = Few Negative A 7429096524) MUCOUS (test code = Slight Negative LPF A 9052359458) SQ EPITH (test code = HPF 4394052036) Lab Interpretation (test Abnormal code = 69298-0) [facility] (NA, K, CL, CO2, GLUCOSE, BUN, CREATININE, CA)2020-05-26 23:56:22 Test Item Value Reference Range Interpretation Comments NA (test code = 140 mmol/L 135-145 3294595938) K (test code = 3.8 mmol/L 3.5-5.0 5056971833) CL (test code = 104 mmol/L 98-108 4373221197) CO2 TOTAL (test code 27 mmol/L 23-31 = 3797331544) AGAP (test code = 2-16 1508253497) BUN (test code = 15 mg/dL 7-23 6993990249) GLUCOSE (test code = 95 mg/dL 70-110 2109459303) CREATININE (test code 0.60 mg/dL 0.50-1.04 = 2325081867) CALCIUM (test code = 9.0 mg/dL 8.6-10.6 0361504963) eGFR (test code = mL/min/1.73m2 8928240223) ANTHONY (test code = ANTHONY) Association of [...] or urine or abnormalities in imaging tests). [facility] (ALB, T.PRO, BILI T, BU/BC, ALT, AST, ALK PHOS)2020-05-26 23:55:42 Test Item Value Reference Range Interpretation Comments TOTAL BILI (test code = 1327222925) 0.3 mg/dL 0.1-1.1 BILI UNCON (test code = 4192093352) 0.2 mg/dL 0.1-1.1 BILI CONJ (test code = 7855930263) 0.0 mg/dL 0.0-0.3 T PROTEIN (test code = 4820498748) 7.5 g/dL 6.3-8.2 ALBUMIN (test code = 1258323608) 4.5 g/dL 3.5-5.0 ALK PHOS (test code = 2702589795) 165 U/L 34-122 H ALTv (test code = 1742-6) 110 U/L 5-35 H AST(SGOT) (test code = 2018096842) 66 U/L 13-40 H Lab Interpretation (test code = Abnormal 11966-7) [facility] with Qhutizfdvgoe9757-12-93 23:42:55 Test Item Value Reference Range Interpretation [...] RDW-SD (test code = 48.4 fL 39.0-49.9 24217-8) RDW-CV (test code = 13.6 % 12.0-15.5 788-0) PLT (test code = See_Comment [Automated 777-3) message] The sy stem which generated this result transmitted reference range : 166 - 358 10*3/ ?L. The reference r miky was not used to interpret this result as normal/abnormal . MPV (test code = 9.8 fL 9.5-12.9 80543-6) NRBC/100 WBC (test See_Comment [Automat ed code = 3117241035) message] The system which generated this result transmitted reference range : 0.0 - 10.0 /100 WBCs. The refer ence range was not u sed to interpret th is result as normal/abnormal . NRBC x10^3 (test code <0.01 See_Comment [Auto mated = 5609864380) message] The s ystem which generated this result transmitted reference range : 10*3/?L. The reference range was not used to interpret this result as normal/abnormal . GRAN MAT (NEUT) % 61.8 % (test code = 770-8) IMM GRAN % (test code 0.70 % = 5943389391) LYMPH % (test code = 27.3 % 736-9) MONO % (test code = 9.0 % 5905-5) EOS % (test code = 1.0 % 713-8) BASO % (test code = 0.2 % 706-2) GRAN MAT x10^3(ANC) 5.01 10*3/uL 1.88-7.09 (test code = 6579261822) IMM GRAN x10^3 (test 0.06 10*3/uL 0.00-0.06 code = 6394793619) LYMPH x10^3 (test code 2.22 10*3/uL 1.32-3.29 = 731-0) MONO x10^3 (test code 0.73 10*3/uL 0.33-0.92 = 742-7) EOS x10^3 (test code = 0.08 10*3/uL 0.03-0.39 711-2) BASO x10^3 (test code <0.03 0.01-0.07 = 704-7) Lab Interpretation Abnormal (test code = 44593-5) [facility]ressUrinalysis2021-04-01 19:25:57 Test Item Value Reference Range Interpretation Comments APPEARANCE (test code = Clear Clear 4872164350) COLOR (test code = Yellow Yellow 6215366209) PH (test code = 4.8-8.0 1414269363) SP GRAVITY (test code = >1.060 1.003-1.030 H 4956769166) GLU U QUAL (test code = Normal Normal 1216044414) BLOOD (test code = Negative Negative 7227604741) KETONES (test code = Negative Negative 4588529572) PROTEIN (test code = Negative Negative 2887-8) UROBILIN (test code = Normal Normal 1953115344) BILIRUBIN (test code = Negative Negative 2818897139) NITRITE (test code = Negative Negative 7974913644) LEUK MURRAY (test code = 25/uL Negative A 8000497085) RBC/HPF (test code = See_Comment [Autom ated message] 9037841425) The system [email or web address] generated this result transmitted ref erence range: 0 - 3 HP F. The reference range was not used to int erpret this result as normal/abnormal . WBC/HPF (test code = See_Comment [Autom ated message] 2939649275) The system [email or web address] generated this result transmitted ref erence range: 0 - 5 HP F. The reference range was not used to int erpret this result as normal/abnormal . BACTERIA (test code = Few Negative A 1818982194) MUCOUS (test code = Slight Negative LPF A 6569191743) SQ EPITH (test code = HPF 2490216320) Lab Interpretation (test Abnormal code = 42570-3) [facility]ressCT ABDOMEN PELVIS W [id number] 17:38:50CT Abdomen and Pelvis with intravenous contrast. [...] eachmeasuring 2 to 3 mm in size. [facility], Radiant Results Inft User - 05/13/2020 12:39 PM CDTCT Abdomen and Pelvis with intravenous contrast.CLINICAL HISTORY: Acute generalized a bdominal pain.DOSE: Up-to-date CT equipment and radiation dose reduction techniques wereemployed. CTDIvol: 7.70 mGy. DLP: 371 mGy-cm.TECHNIQUE : Contiguous axial imaging from the level of the lung basesthrough the pubic symphysis were performed after the uncomplicatedadministration of Omnipaque contrast material. Coronal and sagittalreconstructions were obtained. Auto mA and/or iterative reconstruction wereused to reduce radiation dose.FINDINGS: Comparison is made with ultrasound study of 12/08/2019as well asCT studies of 12/08/2019.Lower lungs: Clear. No pleural effusion or pericardial effusion. N odefinite signs of hiatal hernia.Liver, Gallbladder and Spleen: Liver measures approximately 14.9 cmandspleen measures 9.6 x 3 cm in size. [...] and unopacified.Bones: Exaggerated lumbar lordosis, grade 1 spondylolisthesis at L4-L5 aswell as L5-S1 with bilateral spondylolysis of L4 and L5.Soft tissues: Unremarkable.CONCLUSION:1. No acute intra-abdominal or pelvic abnormalities detected.2. S/P cholecystectomyand hysterectomy. Dilated intrahepatic andextrahepatic bile ducts could be secondary to cholecystectomy and/orampullary stenosis. Pancreatic duct is of normal size.3. 2 and possibly 3 nonobstructing stones in the left kidney, eachmeasuring 2 to 3 mm in size. [facility]ress[facility] Function Panel (ALB, T.PRO, BILI T, BU/BC, ALT, AST, ALK PHOS)2020-05-13 17:24:50 Test Item Value Reference Range Interpretation Comments TOTAL BILI (test code = 8318738979) 0.5 mg/dL 0.1-1.1 BILI UNCON (test code = 4741138533) 0.2 mg/dL 0.1-1.1 BILI CONJ (test code = 8281490197) 0.0 mg/dL 0.0-0.3 T PROTEIN (test code = 5247905370) 8.0 g/dL 6.3-8.2 ALBUMIN (test code = 1792731239) 4.7 g/dL 3.5-5.0 ALK PHOS (test code = 1000334285) 142 U/L 34-122 H ALTv (test code = 1742-6) 29 U/L 5-35 AST(SGOT) (test code = 1805093722) 41 U/L 13-40 H Lab Interpretation (test code = Abnormal 55766-9) [facility] Metabolic Panel (NA, K, CL, CO2, GLUCOSE, BUN, CREATININE, CA)2020-05-13 17:24:49 Test Item Value Reference Range Interpretation Comments NA (test code = 139 mmol/L 135-145 3355088776) K (test code = 3.9 mmol/L 3.5-5.0 9438754687) CL (test code = 111 mmol/L 98-108 H 5805421480) CO2 TOTAL (test code = 19 mmol/L 23-31 L 1353611185) AGAP (test code = 2-16 7705163751) BUN (test code = 15 mg/dL 7-23 7361447888) GLUCOSE (test code = 123 mg/dL 70-110 H 0349099200) CREATININE (test code = 0.83 mg/dL 0.50-1.04 8542261953) CALCIUM (test code = 9.5 mg/dL 8.6-10.6 0656566478) eGFR (test code = mL/min/1.73m2 6619812418) ANTHONY (test code = ANTHONY) Association of [...] tests). Lab Interpretation Abnormal (test code = 41875-2) [facility] CypressLipase Ohhdn5158-62-89 17:24:49 Test Item Value Reference Range Interpretation Comments LIPASE (test code = 0015424124) 25 U/L 0-220 Lab Interpretation (test code = Normal 01794-3) [facility] CypressCBC with Mxtdwjzeeric9849-52-07 17:06:22 Test Item Value Reference Range Interpretation [...] RDW-SD (test code = 46.4 fL 39.0-49.9 02734-9) RDW-CV (test code = 13.3 % 12.0-15.5 788-0) PLT (test code = See_Comment [Automated 777-3) message] The sy stem which generated this result transmitted reference range : 166 - 358 10*3/ ?L. The reference r miky was not used to interpret this result as normal/abnormal . MPV (test code = 10.4 fL 9.5-12.9 77457-0) NRBC/100 WBC (test See_Comment [Automat ed code = 5594813890) message] The system which generated this result transmitted reference range : 0.0 - 10.0 /100 WBCs. The refer ence range was not u sed to interpret th is result as normal/abnormal . NRBC x10^3 (test code <0.01 See_Comment [Auto mated = 1078480050) message] The s ystem which generated this result transmitted reference range : 10*3/?L. The reference range was not used to interpret this result as normal/abnormal . GRAN MAT (NEUT) % 69.6 % (test code = 770-8) IMM GRAN % (test code 0.40 % = 1582641772) LYMPH % (test code = 22.4 % 736-9) MONO % (test code = 7.1 % 5905-5) EOS % (test code = 0.4 % 713-8) BASO % (test code = 0.1 % 706-2) GRAN MAT x10^3(ANC) 5.65 10*3/uL 1.88-7.09 (test code = 9545123336) IMM GRAN x10^3 (test 0.03 10*3/uL 0.00-0.06 code = 2417553303) LYMPH x10^3 (test code 1.82 10*3/uL 1.32-3.29 = 731-0) MONO x10^3 (test code 0.58 10*3/uL 0.33-0.92 = 742-7) EOS x10^3 (test code = 0.03 10*3/uL 0.03-0.39 711-2) BASO x10^3 (test code <0.03 0.01-0.07 = 704-7) Lab Interpretation Abnormal (test code = 88485-2) [facility] ABDOMEN [id number] 18:12:20 Status post cholecystectomy. Mild extra hepatic [...] dilatation in the mid and distal aorta. [facility] 1:13 PM CDTRIGHT UPPER [...] can been expected finding inthe post cholecystectomy setting.[facility] CypressXR CHEST 1 [id number] 18:03:08Findings and Impression: Clear lungs. No pleural effusion or pneumothorax.Heart size is normal. No acute osseous abnormality. PORTABLE CHEST RADIOGRAPH History: RUQ pain Comparison: 12/25/2018 TECHNIQUE: AP view of the chest. [facility] - 12/08/2019 1:04 PM CDTPORTABLE CHEST RADIOGRAPHHistory: RUQ pain Comparison: 12/25/2018TECHNIQUE: AP view of the chest.IMPRESSIONFindings and Impression: Clear lungs. No pleural effusion or pneumothorax.Heart size is normal. No acute osseous abnormality. [facility] CypressCOMP. METABOLIC PANEL (22302)2019-12-08 17:36:00 Test Item Value Reference Range Interpretation Comments NA (test code = 139 mmol/L 135-145 3699883760) K (test code = 4.2 mmol/L 3.5-5 0330066624) CL (test code = 102 mmol/L 98-108 1717226865) CO2 TOTAL (test code = 27 mmol/L 23-31 0677725907) AGAP (test code = 2-16 4290573319) BUN (test code = 20 mg/dL 7-23 8239842591) GLUCOSE (test code = 105 mg/dL 70-110 6043552960) CREATININE (test code = 1.01 mg/dL 0.5-1.04 9906644337) TOTAL BILI (test code = 0.6 mg/dL 0.1-1.3 2429541195) CALCIUM (test code = 9.9 mg/dL 8.6-10.6 9668153374) T PROTEIN (test code = 8.5 g/dL 6.3-8.2 H 1336824993) ALBUMIN (test code = 4.5 g/dL 3.5-5 7364559113) ALK PHOS (test code = 118 U/L 34-122 9400687268) ALTv (test code = 32 U/L 5-35 1742-6) AST(SGOT) (test code = 39 U/L 13-40 0314095445) eGFR Calculation mL/min/1.73m2 (Non-) (test code = 1296581184) eGFR Calculation mL/min/1.73m2 () (test code = 2717652491) ANTHONY (test code = ANTHONY) Association of [...] tests). Lab Interpretation Abnormal (test code = 24607-2) [facility] CypressURINALYSIS2020-10-26 17:20:00 Test Item Value Reference Range Interpretation Comments APPEARANCE (test code = Hazy Clear A 0321363526) COLOR (test code = Yellow Yellow 0884153026) PH (test code = 4.8-8.0 1001258268) SP GRAVITY (test code = 1.003-1.030 H 0315295948) GLU U QUAL (test code = Normal Normal 5159394303) BLOOD (test code = Negative Negative 8438913576) KETONES (test code = Negative Negative 8536296772) PROTEIN (test code = 30 mg/dL Negative A 2887-8) UROBILIN (test code = Normal Normal 9824995166) BILIRUBIN (test code = Negative Negative 4182837293) NITRITE (test code = Negative Negative 8920655763) LEUK MURRAY (test code = 75/uL Negative A 0293061497) RBC/HPF (test code = See_Comment [Autom ated message] 5804314238) The system [email or web address] generated this result transmitted ref erence range: 0 - 3 HP F. The reference range was not used to int erpret this result as normal/abnormal . WBC/HPF (test code = See_Comment [Autom ated message] 1627660489) The system [email or web address] generated this result transmitted ref erence range: 0 - 5 HP F. The reference range was not used to int erpret this result as normal/abnormal . BACTERIA (test code = Negative Negative 7854281121) MUCOUS (test code = Slight Negative LPF A 5810605828) SQ EPITH (test code = HPF 5809912887) HYAL CAST (test code = See_Comment [Aut omated message] 4503614217) The system whic h generated this result transmitted ref erence range: <=2 LPF. The reference range was not used to int erpret this result as normal/abnormal . Lab Interpretation (test Abnormal code = 26663-8) [facility] WITH [id number] 17:05:00 Test Item Value Reference Range Interpretation [...] RDW-SD (test code = 43.5 fL 39-49.9 21610-2) RDW-CV (test code = 11.9 % 12-15.5 L 788-0) PLT (test code = See_Comment [Automated 777-3) message] The sy stem which generated this result transmitted reference range : 166 - 358 10*3/ ?L. The reference r miky was not used to interpret this result as normal/abnormal . MPV (test code = 10.9 fL 9.5-12.9 67098-9) NRBC/100 WBC (test See_Comment [Automat ed code = 6434365649) message] The system which generated this result transmitted reference range : 0.0 - 10.0 /100 WBCs. The refer ence range was not u sed to interpret th is result as normal/abnormal . NRBC x10^3 (test code <0.01 See_Comment [Auto mated = [id number]) message] The s ystem which generated this result transmitted reference range : 10*3/?L. The reference range was not used to interpret this result as normal/abnormal . GRAN MAT (NEUT) % 64.8 % (test code = 770-8) IMM GRAN % (test code 0.40 % = [id number]) LYMPH % (test code = 27.0 % 736-9) MONO % (test code = 6.5 % 5905-5) EOS % (test code = 0.9 % 713-8) BASO % (test code = 0.4 % 706-2) GRAN MAT x10^3(ANC) 4.35 10*3/uL 1.88-7.09 (test code = [id number]) IMM GRAN x10^3 (test 0.03 10*3/uL 0-0.06 code = 1572961506) LYMPH x10^3 (test code 1.82 10*3/uL 1.32-3.29 = 731-0) MONO x10^3 (test code 0.44 10*3/uL 0.33-0.92 = 742-7) EOS x10^3 (test code = 0.06 10*3/uL 0.03-0.39 711-2) BASO x10^3 (test code 0.03 10*3/uL 0.01-0.07 = 704-7) Lab Interpretation Abnormal (test code = 61684-7) [facility] [id number] 16:59:351. ?Nonobstructive left nephrolithiasis. 2. ?No radiographic [...] PELVISLiver: Hepatic dome is not fully within [id number]. No focal hepa ticlesions identified within limits [...] PELVISLiver: Hepatic dome is not fully within [id number]. No focal hepaticlesions identified within limits of [...] in the left lower lobe, thoughtto be unchanged.[facility] POCT [id number] 16:12:00 Test Item Value Reference Range Interpretation Comments POCT PREG (test code = 1605) negative On board controls acceptable with present C Line (test code = 3574) POCT PREG LOT # (test code = 3575) [id number] POCT PREG TEST DATE (test 05/12/2021 code = 3576) Lab Interpretation (test code = Normal 78739-1) [facility], [id number] 15:17:00 Test Item Value Reference Range Interpretation Comments POCT U SP GRAV (test code = 1.025 mg/dl 1.005-1.025 5) POCT PH U (test code = 3254) 6.0 mg/dl 5-8 POCT U LEUK EST (test code = Trace Negative - Negative 326) POCT U NIT (test code = 3262) [...] 3267) Lab Interpretation (test code Abnormal = 40934-4) [facility], [id number] 15:17:00 Test Item Value Reference Range Interpretation [...] 3267) Lab Interpretation (test code Abnormal = 58494-9) [facility], BRAIN, [id number] 19:53:00With seizure protocolThin coronal cuts especially around [...] MDReport Verified Date/Time: 10/25/2018 19:53:41 Reading Location: [address] Neuro Reading Room EEG AWAKE AND [id number] 19:37:00For STAT EEG- after 5 PM weekdays, weekends and holidays, page the on-call EEG TechReason for exam:-& gt;altered mental statusDATE OF EXAMINATION: 10/25/18EEG NO: [id number] 10: R56.9CPT CODE: [id number] SUMMARY:This is a digital EEG recorded with 32 input channels on a [employer] system and then reviewed with bipolar and [...] seizure for the symptom(s) of interest. HEMOGLOBIN [id number] 14:02:00 Test Item Value Reference Range Interpretation Comments HEMOGLOBIN A1C (BEAKER) (test code = 5.6 % 4.3-6.1 368) TSH/FREE T4 IF [id number] 06:11:00 Test Item Value Reference Range Interpretation Comments THYROID STIMULATING HORMONE 3.63 uIU/mL 0.35-4.94 (BEAKER) (test code = 772) VITAMIN B12 AND [id number] 06:11:00 Test Item Value Reference Range Interpretation Comments VITAMIN B12 (BEAKER) (test code = 272 pg/mL 213-816 774) FOLATE (BEAKER) (test code = 362) 9.4 ng/mL >=7.0 [id number] 05:58:00 Test Item Value Reference Range Interpretation Comments PHOSPHORUS (BEAKER) (test code = 3.6 mg/dL 2.3-4.7 604) [id number] 05:58:00 Test Item Value Reference Range Interpretation Comments MAGNESIUM (BEAKER) (test code = 2.1 mg/dL 1.6-2.6 627) BASIC METABOLIC [id number] 05:58:00 Test Item Value Reference Range Interpretation [...] NOT APPLICABLE FOR DIALYSIS PATIEN TS. LIPID [id number] 05:58:00 Test Item Value Reference Range Interpretation [...] 130-159 High 160-189 Very High >=190HEPATIC FUNCTION [id number] 05:58:00 Test Item Value Reference Range Interpretation [...] (test code = 413) CT, BRAIN, WITHOUT [id number] 00:33:00FINAL REPORT EXAM: CT, BRAIN, WITHOUT CONTRAST [...] MDReport Verified Date/Time: 10/25/2018 00:33:20 Reading Location: [address] Neuro Reading Room POCT-GLUCOSE [id number] 23:26:00 Test Item Value Reference Range Interpretation Comments POC-GLUCOSE METER 77 mg/dL 70-110 TESTED AT [facility] 6720 (BEAKER) (test code = [place] [address] 1538) SCREEN, [id number] 18:06:00 Test Item Value Reference Range Interpretation Comments TEST URINE (BEAKER) (test Negative code = 583) RAPID DRUG SCREEN, [id number] 16:54:00 Test Item Value Reference Range Interpretation [...] situations. Chain of custody not maintained. Some nrxt-kbr-eivdrdk medications, as well as adulterants, may cause [...] 0-100 (test code = 700) BASIC METABOLIC [id number] 15:41:00 Test Item Value Reference Range Interpretation [...] DATA TO CALCULA TE ESTIMATED GFR. TROPONIN [id number] 15:34:00 Test Item Value Reference Range Interpretation [...] acute neurological disease, and persistent tachyarrhythmia.HEPATIC FUNCTION [id number] 15:32:00 Test Item Value Reference Range Interpretation [...] (test code = 51 U/L 6-55 347) [id number] 15:27:00 Test Item Value Reference Range Interpretation Comments ETHANOL (BEAKER) (test code = 400) < mg/dL <=10 POCT-GLUCOSE [id number] 15:15:00 Test Item Value Reference Range Interpretation Comments POC-GLUCOSE METER 82 mg/dL 70-110 TESTED AT [facility] 67[address] (BEAKER) (test code = DEV[place] [facility] [address] 1538) RAD, CHEST, 1 VIEW, NON [id number] 15:13:00Reason for exam:->sobShould this be performed at the bedside?->YesFINAL REPORT INDICATION: sob COMPARISON: None TECHNIQUE: Single frontal view ofthe chest. FINDINGS: Lungs and pleura: Clear lungs. No effusion.Heart and mediastinum: Normal heart size. Unremarkable mediastinal contours.Osseous structures: No acute abnormality.Other: None. IMPRESSION: No acute intrathoracic abnormality. Signed: JR Escobar Robert MDReport Verified Date/Time: 10/24/2018 15:13:38 Reading Location: [facility] Radiology Reading Room CBC W/PLT COUNT & AUTO [id number] 15:06:00 Test Item Value Reference Range Interpretation [...] code = 2801) CT, SPINE, CERVICAL, WO [id number] 15:06:00Reason for exam:->r/o c- spine injuryIs the [...] MDReport Verified Date/Time: 10/24/2018 15:06:41 Reading Location: [address] Neuro Reading Room CT, BRAIN/STROKE [id number] 14:38:00Reason for exam:->r/o cvaIs the patient ?->UnknownWhat [...] Shirley Verified Date/Time: 10/24/2018 14:38:49 Reading Location: [facility] B1 C013W Consult Reading Room "
[2022-09-23] MEDS ORDERED: KETOROLAC 30 MG/ML INJ ONE (12:47)
[2022-09-23] MEDS ORDERED: NA CHLORIDE 0.9% 1,000 ML ONE ×2 (12:47→16:24)
[2022-09-23] MEDS ORDERED: ONDANSETRON 4 MG/2 ML VIAL ONE (12:47)
[2022-09-23 13:13] LABS: Absolute Lymphocytes (CBC) 1.3 K/uL (0.7-4.9); Hematocrit 31.9 % (36.0-45.0); Lymphocytes % 14.8 % (15.3-44.8); MCV 98.2 fL (80-100); MPV 7.6 fL (7.6-11.3); Platelets 302 thou/uL (152-406); RBC Red Blood Cell Count 3.25 M/uL (3.86-4.86)
[2022-09-23] MEDS ORDERED: PROMETHAZINE INJ 25 MG/ML AMP ONE ×2 (13:25→17:59)
[2022-09-23] MEDS ORDERED: MORPHINE 4 MG/ML SYR ONE ×2 (13:26→16:49)
[2022-09-23 13:39] LABS: Albumin 4.1 g/dL (3.4-5.0); Bilirubin Total 0.3 mg/dL (0.2-1.0); Potassium 3.9 mEq/L (3.5-5.1); Protein, Total 7.7 g/dL (6.4-8.2)
--- NOTE | 2022-09-23 15:37 | RAD REPORT ---
EXAM DESCRIPTION: CT - Abdomen Pelvis W Contrast - 09/23/2022 2:56 pm CLINICAL HISTORY: ABD PAIN COMPARISON: Abdomen Pelvis W Contrast dated 05/24/2022; Abdomen Pelvis W Contrast dated 09/30/2021 ; Abdomen Pelvis W Contrast dated 08/30/2021; Abdomen Pelvis W Contrast dated 05/22/2021 TECHNIQUE: Thin cut axial CT imaging of the abdomen and pelvis was performed following intravenous a dministration of 100 mL Isovue 300. Multiplanar reformats were generated and reviewed. All CT scans are performed using dose optimization technique as appropriate and may include automated exposure control or mA/KV adjustment according to patient size. FINDINGS: Ovoid left lower lobe 1.2 cm nodule in the lower lobe peripherally, nonspecific and could relate to atelectasis. The liver, spleen, and pancreas show no suspicious findings. Gallbladder was surgically removed. Prom inent common bile duct measuring 1.4 cm in caliber, with mild central intrahepatic biliary ductal dil ation, nonspecific but could relate to postcholecystectomy status Symmetric renal function is seen with no hydronephrosis or suspicious renal mass. Bilateral 2-3 vernell meter nonobstructing calculi. A 3 millimeter calculus along the dependent aspect of the bladder on th e right, could be near the ureteral orifice or layering dependently in the bladder No dilated bowel loops or bowel wall thickening. No free air, free fluid or inflammatory stranding. N o hernia, mass or bulky lymphadenopathy. The urinary bladder is without significant finding. No suspicious bony findings. Grade 1 spondylolisthesis at L5-S1. IMPRESSION: Prominence of the common bile duct and central intrahepatic biliary radicles. This may r elate to postcholecystectomy status. Please correlate clinically, and with bilirubin levels. Incidentally noted ovoid left lower lobe 1.2 cm nodule, could be inflammatory or atelectatic among ot her considerations. Short-term interval follow-up CT chest in 1-3 months is recommended. Nonobstructing bilateral renal calculi. 3 millimeter calculus along the dependent aspect of the bladd er, could be near the ureteral orifice or within the bladder, without evidence of obstruction.
[2022-09-23 17:30] LABS: Specific Gravity > 1.030 (1.005-1.030)
[2022-09-23 17:36] LABS: Urine Bacteria None Seen /HPF (<20); Urine Bilirubin NEGATIVE (Negative); Urine Blood Negative (Negative); Urine Clarity Clear (Clear); Urine Color Light-Yellow (Yellow); Urine Glucose NEGATIVE (Negative); Urine Mucus Slight /HPF (None Seen); Urine Protein TRACE (Negative); Urine RBC <5 /HPF (None Seen); Urine Urobilinogen Normal (Normal)
[2022-09-23 17:43] LABS: Specific Gravity > 1.030 (1.005-1.030)
--- NOTE | 2022-09-23 18:11 | EDPHYS ---
Physician Documentation [facility] Name: Mckenna Avila Age: 47 yrs Sex: Female : 1975 Arrival Date: 09/23/2022 Time: 12:19 Bed 14 Private MD: ED Physician Sai Pardo HPI: 09/23 14:19 This 47 yrs old Female presents to ER via Ambulatory with complaints of Abdominal Pain, kb Nausea/Vomiting. 14:19 The patient has not recently seen a physician. kb 14:19 The patient presents with abdominal pain in the lower abdomen. Onset: The kb symptoms/episode began/occurred 3 day(s) ago. The symptoms do not radiate. Associated signs and symptoms: Pertinent positives: nausea, vomiting, and diarrhea, Pertinent negatives: dysuria, fever. The symptoms are described as constant. Modifying factors: The symptoms are alleviated by nothing, the symptoms are aggravated by nothing. Severity of pain: At its worst the pain was moderate in the emergency department the pain is unchanged. The patient has experienced similar episodes in the past. Pt reports lower abd pain, bilateral flank pain, n/v/d for 3-4 days. Denies fever, urinary symptoms. States she has been on Bactrim for a couple of weeks for a UTI. 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 - Social history:: Smoking status: Patient denies any tobacco usage or history of. ROS: 14:17 Constitutional: Negative for fever, chills, and weight loss, ENT: Negative for injury, kb pain, and discharge, Cardiovascular: Negative for chest pain, palpitations, and edema, Respiratory: Negative for shortness of breath, cough, wheezing, and pleuritic chest pain, MS/Extremity: Negative for injury and deformity, Skin: Negative for injury, rash, and discoloration, Neuro: Negative for headache, weakness, numbness, tingling, and seizure. 14:17 Abdomen/GI: Positive for abdominal pain, nausea, vomiting, and diarrhea. 14:17 Back: Positive for flank pain. Exam: 14:17 Constitutional: This is a well developed, well nourished patient who is awake, alert, kb and in no acute distress. Head/Face: Normocephalic, atraumatic. ENT: Moist Mucous membranes Cardiovascular: Regular rate and rhythm with a normal S1 and S2. No gallops, murmurs, or rubs. No pulse deficits. Respiratory: Respirations even and unlabored. No increased work of breathing. Talking in full sentences Skin: Warm, dry with normal turgor. Normal color. MS/ Extremity: Pulses equal, no cyanosis. Neurovascular intact. Full, normal range of motion. Neuro: Awake and alert, GCS 15, oriented to person, place, time, and situation. Moves all extremities. Normal gait. 14:17 Abdomen/GI: Inspection: abdomen appears normal, Bowel sounds: normal, Palpation: soft, in all quadrants, moderate abdominal tenderness, in the right lower quadrant and left lower quadrant. Vital Signs: 12:29 BP 178 / 93; Pulse 105; Resp 16; Temp 98.1(O); Pulse Ox 100% on R/A; Weight 77.11 kg; hb Height 5 ft. 7 in. ; Pain 8/10; 13:25 BP 173 / 113; Pulse 93; Resp 17; Pulse Ox 100% on R/A; Pain 10/10; me1 14:33 BP 181 / 99; Pulse 91; Resp 18; Pulse Ox 99% on R/A; Pain 9/10; me1 15:04 BP 178 / 63; Pulse 93; Resp 18; Temp 98.1; Pulse Ox 99% ; Pain 8/10; sm8 16:47 BP 165 / 97; Pulse 89; Resp 17; Pulse Ox 100% on R/A; me1 18:45 BP 182 / 91; Pulse 91; Resp 17; Pulse Ox 98% on R/A; Pain 7/10; me1 12:29 Body Mass Index 26.63 (77.11 kg, 170.18 cm) hb 12:29 Pain Scale: Adult hb 13:25 Pain Scale: Adult me1 14:33 Pain Scale: Adult me1 15:04 Pain Scale: Adult sm8 18:45 Pain Scale: Adult me1 MDM: 12:23 Patient medically screened. kb 14:18 Differential diagnosis: non-specific abd pain, Pyelonephritis, Ureterolithiasis, kb urinary tract infection. Data reviewed: vital signs, nurses notes. 18:07 Counseling: I had a detailed discussion with the patient and/or guardian regarding: the kb historical points, exam findings, and any diagnostic results supporting the discharge/admit diagnosis, lab results, radiology results, the need for outpatient follow up, a family practitioner, to return to the emergency department if symptoms worsen or persist or if there are any questions or concerns that arise at home. 09/23 12:29 Order name: CBC with Diff; Complete Time: 13:18 kb 09/23 12:29 Order name: CMP; Complete Time: 13:40 kb 09/23 12:29 Order name: Lipase; Complete Time: 13:40 kb 09/23 12:29 Order name: Test, Urine; Complete Time: 17:31 kb 09/23 12:29 Order name: Urinalysis w/ reflexes; Complete Time: 17:59 kb 09/23 12:29 Order name: CT Abd/Pelvis - IV Contrast Only; Complete Time: 15:42 kb 09/23 12:29 Order name: IV Saline Lock; Complete Time: 13:07 kb 09/23 12:29 Order name: Labs collected and sent; Complete Time: 13:07 kb 09/23 16:01 Order name: Misc. Order: please obtain urine; Complete Time: 17:19 kb Administered Medications: 13:07 Drug: NS 0.9% IV 1000 ml Route: IV; Rate: 1 bolus; Site: left wrist; hb 14:00 Follow up: Response: No adverse reaction; IV Status: Completed infusion; IV Intake: hb 1000ml 13:07 Drug: TORadol - Ketorolac IVP 15 mg Route: IVP; Site: left wrist; hb 14:00 Follow up: Response: No adverse reaction hb 13:07 Drug: Ondansetron IVP 4 mg Route: IVP; Site: left wrist; hb 14:00 Follow up: Response: No adverse reaction hb 13:18 Drug: Promethazine IM 25 mg Route: IM; Site: left deltoid; me1 14:18 Follow up: Response: No adverse reaction; Nausea is decreased me1 13:18 Drug: morphine IVP or IV 4 mg Route: IVP; Infused Over: 4 mins; Site: left forearm; me1 14:18 Follow up: Response: No adverse reaction; Pain is decreased me1 16:16 Drug: NS 0.9% IV 1000 ml Route: IV; Rate: 1 bolus; Site: left forearm; me1 17:05 Follow up: IV Status: Completed infusion me1 17:06 Follow up: Response: No adverse reaction hb 16:39 Drug: morphine IVP or IV 4 mg Route: IVP; Infused Over: 4 mins; Site: left forearm; me1 17:39 Follow up: Response: No adverse reaction; Pain is decreased me1 17:53 Drug: Promethazine IM 25 mg Route: IM; Site: left gluteus; me1 18:40 Follow up: Response: No adverse reaction; Nausea is decreased me1 Disposition: 09/24 07:53 Co-signature as Attending Physician, Sai Pardo MD I agree with the assessment and kdr plan of care. Disposition Summary: 09/23/22 18:10 Discharge Ordered Location: Home kb Condition: Stable kb Diagnosis - Kidney Stone/ Calculus in bladder kb Followup: kb - With: Emergency Department - When: As needed - Reason: Worsening of condition Followup: kb - With: Private Physician - When: 2 - 3 days - Reason: Recheck today's complaints, Continuance of care, Re-evaluation by your physician Discharge Instructions: - Discharge Summary Sheet kb - Kidney Stones, Syrd-[id number]-Thji kb Forms: - Medication Reconciliation Form kb - Thank You Letter kb - Antibiotic Education kb - Prescription Opioid Use kb - Patient Portal Instructions kb - Leadership Thank You Letter kb Prescriptions: - promethazine 25 mg Oral Tablet - take 1 tablet by ORAL route every 6 hours As needed; 20 tablet; Refills: 0, kb Product Selection Permitted Signatures: Dispatcher [employer] Aruna Alexander, EH-C EH-Sai Downs MD MD kdr Alisa Dixon, RN RN Beatriz Ray, SISSY RN me1
--- NOTE | 2022-09-23 18:11 | ER ---
Nurse's Notes [facility] Name: Mckenna Avila Age: 47 yrs Sex: Female : 1975 Arrival Date: 09/23/2022 Time: 12:19 Bed 14 Private MD: Diagnosis: Kidney Stone/ Calculus in bladder Presentation: 09/23 12:29 Chief complaint: N/V/D and mid back pain that radiates to abdomen x 3-4 days. Received hb Remicade on for Crohn's, on Bactrim x 2 weeks for UTI. Coronavirus screen: At this time, the client does not indicate any symptoms associated with coronavirus-19. Ebola Screen: No symptoms or risks identified at this time. Initial Sepsis Screen: Does the patient meet any 2 criteria? HR > 90 bpm. No. Patient's initial sepsis screen is negative. Does the patient have a suspected source of infection? No. Patient's initial sepsis screen is negative. Risk Assessment: Do you want to hurt yourself or someone else? Patient reports no desire to harm self or others. Onset of symptoms was September 19, 2022. 12:29 Method Of Arrival: Ambulatory hb 12:29 Acuity: KEIKO 3 hb Triage Assessment: 12:31 General: Appears in no apparent distress. uncomfortable, Behavior is calm, cooperative. hb Pain: Pain currently is 8 out of 10 on a pain scale. EENT: No signs and/or symptoms were reported regarding the EENT system. Neuro: Level of Consciousness is awake, alert, obeys commands, Oriented to person, place, time, situation. Cardiovascular: Patient's skin is warm and dry. Respiratory: Respiratory effort is even, unlabored, Respiratory pattern is regular, symmetrical. GI: Reports lower abdominal pain, upper abdominal pain, diarrhea, nausea, vomiting. : No signs and/or symptoms were reported regarding the genitourinary system. Derm: Skin is pink, warm \T\ dry. Musculoskeletal: No signs and/or symptoms reported regarding the musculoskeletal system. 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 - Social history:: Smoking status: Patient denies any tobacco usage or history of. Screenin:33 [facility] ED Fall Risk Assessment (Adult) Score/Fall Risk Level 0 - 2 = Low Risk hb Oriented to surroundings, Maintained a safe environment. Abuse screen: Denies threats or abuse. Denies injuries from another. Nutritional screening: No deficits noted. Tuberculosis screening: No symptoms or risk factors identified. Assessment: 12:33 General: See triage assessment. hb 14:37 Reassessment: No changes from previously documented assessment. me1 15:38 Reassessment: Patient appears in no apparent distress at this time. Patient and/or hb family updated on plan of care and expected duration. Pain level reassessed. Patient is alert, oriented x 3, equal unlabored respirations, skin warm/dry/pink. 15:43 Reassessment: No changes from previously documented assessment. Patient and/or family me1 updated on plan of care and expected duration. Pain level reassessed. 16:05 General: Informed Anya Beckford NP that patient has not been able to void yet. Rec'd me1 order for 1 L bolus of NS IV x 1 now. . Vital Signs: 12:29 BP 178 / 93; Pulse 105; Resp 16; Temp 98.1(O); Pulse Ox 100% on R/A; Weight 77.11 kg; hb Height 5 ft. 7 in. ; Pain 8/10; 13:25 BP 173 / 113; Pulse 93; Resp 17; Pulse Ox 100% on R/A; Pain 10/10; me1 14:33 BP 181 / 99; Pulse 91; Resp 18; Pulse Ox 99% on R/A; Pain 9/10; me1 15:04 BP 178 / 63; Pulse 93; Resp 18; Temp 98.1; Pulse Ox 99% ; Pain 8/10; sm8 16:47 BP 165 / 97; Pulse 89; Resp 17; Pulse Ox 100% on R/A; me1 18:45 BP 182 / 91; Pulse 91; Resp 17; Pulse Ox 98% on R/A; Pain 7/10; me1 12:29 Body Mass Index 26.63 (77.11 kg, 170.18 cm) hb 12:29 Pain Scale: Adult hb 13:25 Pain Scale: Adult me1 14:33 Pain Scale: Adult me1 15:04 Pain Scale: Adult sm8 18:45 Pain Scale: Adult me1 ED Course: 12:22 Patient arrived in ED. ts1 12:23 [facility] kb 12:23 Sai Pardo MD is Attending Physician. kb 12:31 Triage completed. hb 12:31 Arm band placed on. hb 12:33 Patient has correct armband on for positive identification. Bed in low position. Call hb light in reach. Provided Education on: . 12:43 Alisa Dixon, RN is Primary Nurse. hb 13:06 Inserted saline lock: 20 gauge in left wrist, using aseptic technique. ,using aseptic hb technique. by Francisca SHEEHAN Blood collected. 14:11 Missed attempt(s): 20 gauge in right forearm. Bleeding controlled, band aid applied, sm8 catheter tip intact. 14:57 CT Abd/Pelvis - IV Contrast Only In Process Unspecified. EDMS 17:19 Urinalysis w/ reflexes Sent. me1 18:44 No provider procedures requiring assistance completed. IV discontinued, intact, me1 bleeding controlled, No redness/swelling at site. Pressure dressing applied. Administered Medications: 13:07 Drug: NS 0.9% IV 1000 ml Route: IV; Rate: 1 bolus; Site: left wrist; hb 14:00 Follow up: Response: No adverse reaction; IV Status: Completed infusion; IV Intake: hb 1000ml 13:07 Drug: TORadol - Ketorolac IVP 15 mg Route: IVP; Site: left wrist; hb 14:00 Follow up: Response: No adverse reaction hb 13:07 Drug: Ondansetron IVP 4 mg Route: IVP; Site: left wrist; hb 14:00 Follow up: Response: No adverse reaction hb 13:18 Drug: Promethazine IM 25 mg Route: IM; Site: left deltoid; me1 14:18 Follow up: Response: No adverse reaction; Nausea is decreased me1 13:18 Drug: morphine IVP or IV 4 mg Route: IVP; Infused Over: 4 mins; Site: left forearm; me1 14:18 Follow up: Response: No adverse reaction; Pain is decreased me1 16:16 Drug: NS 0.9% IV 1000 ml Route: IV; Rate: 1 bolus; Site: left forearm; me1 17:05 Follow up: IV Status: Completed infusion me1 17:06 Follow up: Response: No adverse reaction hb 16:39 Drug: morphine IVP or IV 4 mg Route: IVP; Infused Over: 4 mins; Site: left forearm; me1 17:39 Follow up: Response: No adverse reaction; Pain is decreased me1 17:53 Drug: Promethazine IM 25 mg Route: IM; Site: left gluteus; me1 18:40 Follow up: Response: No adverse reaction; Nausea is decreased me1 Medication: 12:33 VIS not applicable for this client. hb Intake: 14:00 IV: 1000ml; Total: 1000ml. hb Outcome: 18:10 Discharge ordered by . joyce 18:45 Discharged to home with family. me1 18:45 Condition: stable 18:45 Discharge instructions given to patient, family, Instructed on discharge instructions, follow up and referral plans. medication usage, Demonstrated understanding of instructions, follow-up care, medications, Prescriptions given X 1. 18:46 Patient left the ED. me1 Signatures: Dispatcher [employer] Aruna Alexander, RN PROCEDURES-C RN PROCEDURES-Ckb Alisa Dixon, RN RN Lesley Alegria, PAS PAS ts1 Narcisa Cordova sm8 Beatriz Ray, RN RN me1
[2022-09-23 18:54] VITALS: TEMP 98.1
[2022-09-23 19:04] VITALS: BP 182/91; O2SAT 98
== END 2022-09-23 18:46 | disposition home or self-care (01) ==
LOC: ER 12:19
DX: N20.0 Calculus of kidney (principal); N21.0 Calculus in bladder; Z87.442 Personal history of urinary calculi; Z88.1 Allergy status to other antibiotic agents
CPT/HCPCS: 85025; 81001; 36415; 81025; 83690; 80053; 74177; 96372; 99284; Q9967; J2550 ×2; J2405; J7030 ×2

== ENCOUNTER 2022-10-10 12:28 | Inpatient (IN) | payer BC ==
--- OUTSIDE RECORDS SUMMARY | 2022-10-10 12:56 | XMS REPORT | Continuity of Care Document ---
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 Medical mg tablet Branch predniSONE 2020-02 Yes 20mg Take 20 mg U nivers 10 mg 1-02 by mouth ity of tablet 03:45: daily. [place] [address] Medical Branch Hydrocodone 2020-02 Yes 1{tbl} Take 1 Un matt -Acetaminop 1-02 tablet by ity of hen 7.5-300 03:45: mouth 3 [place] mg tablet 04 (three) Medical times [place] daily. tiZANidine 2020-02 Yes 4mg Take 4 mg Un matt 4 mg tablet 1-02 by mouth 3 it y of 03:45: (three) [place] 04 times Medical daily. Branch methocarbam 2020-02 Yes 500mg Take 500 U nivers oL 500 mg 1-02 mg by ity of tablet 03:45: mouth at [place] 04 bedtime. Medical Branch dicyclomine 2020-02 Yes 20mg Take 20 mg Univers 20 mg 1-02 by mouth 3 ity of tablet 03:45: (three) [place] 04 times Medical daily. Branch famotidine 2020-02 Yes 40mg Take 40 mg U nivers 40 mg 1-02 by mouth ity of tablet 03:45: at [place] [address] bedtime. Medical Branch diphenoxyla 2020-02 Yes 1{tbl} Take 1 Un matt te-atropine 1-02 tablet by ity of (LOMOTIL) 03:45: mouth [place] 2.5-0.025 04 needed. Medical mg tablet Branch predniSONE 2020-02 Yes 20mg Take 20 mg U nivers 10 mg 1-02 by mouth ity of tablet 03:45: daily. [place] [address] Medical Branch Hydrocodone 2020-02 Yes 1{tbl} Take 1 Un matt -Acetaminop 1-02 tablet by ity of hen 7.5-300 03:45: mouth 3 [place] mg tablet 04 (three) Medical times [place] daily. tiZANidine 2020-02 Yes 4mg Take 4 mg Un matt 4 mg tablet -02 by mouth 3 it y of 03:45: (three) [place] 04 times Medical daily. Branch methocarbam 2020-02 Yes 500mg Take 500 U nivers oL 500 mg 1-02 mg by ity of tablet 03:45: mouth at [place] [address] bedtime. Medical Branch dicyclomine 2020-02 Yes 20mg Take 20 mg Univers 20 mg -02 by mouth 3 ity of tablet 03:45: (three) [place] 04 times Medical daily. Branch famotidine 2020-02 Yes 40mg Take 40 mg U nivers 40 mg -02 by mouth ity of tablet 03:45: at [place] [address] bedtime. Medical Branch diphenoxyla 2020-02 Yes 1{tbl} Take 1 Un matt te-atropine 1-02 tablet by ity of (LOMOTIL) 03:45: mouth [place] 2.5-0.025 04 needed. Medical mg tablet Branch predniSONE 2020-02 Yes 20mg Take 20 mg U nivers 10 mg 1-02 by mouth ity of tablet 03:45: daily. [place] [address] Medical Branch Hydrocodone 2020-02 Yes 1{tbl} Take 1 Un matt -Acetaminop 1-02 tablet by ity of hen 7.5-300 03:45: mouth 3 [place] mg tablet 04 (three) Medical times [place] daily. tiZANidine 2020-02 Yes 4mg Take 4 mg Un matt 4 mg tablet 1-02 by mouth 3 it y of 03:45: (three) [place] 04 times Medical daily. Branch methocarbam 2020-02 Yes 500mg Take 500 U nivers oL 500 mg 1-02 mg by ity of tablet 03:45: mouth at [place] 04 bedtime. Medical Branch dicyclomine 2020-02 Yes 20mg Take 20 mg Univers 20 mg 1-02 by mouth 3 ity of tablet 03:45: (three) [place] 04 times Medical daily. Branch famotidine 2020-02 Yes 40mg Take 40 mg U nivers 40 mg 1-02 by mouth ity of tablet 03:45: at [place] [address] bedtime. Medical Branch diphenoxyla 2020-02 Yes 1{tbl} Take 1 Un matt te-atropine 1-02 tablet by ity of (LOMOTIL) 03:45: mouth [place] 2.5-0.025 04 needed. Medical mg tablet Branch predniSONE 2020-02 Yes 20mg Take 20 mg U nivers 10 mg 1-02 by mouth ity of tablet 03:45: daily. [place] [address] Medical Branch Hydrocodone 2020-02 Yes 1{tbl} Take 1 Un matt -Acetaminop 1-02 tablet by ity of hen 7.5-300 03:45: mouth 3 [place] mg tablet 04 (three) Medical times [place] daily. tiZANidine 2020-02 Yes 4mg Take 4 mg Un matt 4 mg tablet -02 by mouth 3 it y of 03:45: (three) [place] 04 times Medical daily. Branch methocarbam 2020-02 Yes 500mg Take 500 U nivers oL 500 mg 1-02 mg by ity of tablet 03:45: mouth at [place] [address] bedtime. Medical Branch dicyclomine 2020-02 Yes 20mg Take 20 mg Univers 20 mg 1-02 by mouth 3 ity of tablet 03:45: (three) [place] 04 times Medical daily. Branch famotidine 2020-02 Yes 40mg Take 40 mg U nivers 40 mg 1-02 by mouth ity of tablet 03:45: at [place] [address] bedtime. Medical Branch diphenoxyla 2020-02 Yes 1{tbl} Take 1 Un matt te-atropine 1-02 tablet by ity of (LOMOTIL) 03:45: mouth [place] 2.5-0.025 04 needed. Medical mg tablet Branch predniSONE 2020-02 Yes 20mg Take 20 mg U nivers 10 mg -02 by mouth ity of tablet 03:45: daily. [place] 04 Medical Branch Hydrocodone 2020-02 Yes 1{tbl} [...] by ity of tablet 03:45: mouth at [place] [address] bedtime. Medical Branch dicyclomine 2020-02 Yes 20mg Take 20 mg Univers 20 mg 02 by mouth 3 ity of tablet 03:45: (three) [place] 04 times Medical daily. Branch famotidine 2020-02 Yes 40mg Take 40 mg U nivers 40 mg 02 by mouth ity of tablet 03:45: at [place] [address] bedtime. Medical Branch diphenoxyla 2020-02 Yes 1{tbl} Take 1 Un matt te-atropine 1-02 tablet by ity of (LOMOTIL) 03:45: mouth [place] 2.5-0.025 04 needed. Medical mg tablet Branch furosemide 2020-02 Yes [id number] 20mg Take 1 U nivers 20 mg 1-01 tablet by ity of tablet 00:00: mouth [place] 00 every Medical Sunday, Branch Sunday and Sunday. furosemide 2020-02 Yes [id number] 20mg Take 1 U nivers 20 mg 1-01 tablet by ity of tablet 00:00: mouth [place] 00 every Medical Sunday, Branch Sunday and Sunday. furosemide 2020-02 Yes [id number] 20mg Take 1 U nivers 20 mg 1-01 tablet by ity of tablet 00:00: mouth [place] 00 every Medical Sunday, Branch Sunday and Sunday. furosemide 2020-02 Yes [id number] 20mg Take 1 U nivers 20 mg 1-01 tablet by ity of tablet 00:00: mouth [place] 00 every Medical Sunday, Branch Sunday and Sunday. furosemide 2020-02 Yes [id number] 20mg Take 1 U nivers 20 mg 1-01 tablet by ity of tablet 00:00: mouth [place] 00 every Medical Sunday, Branch Sunday and Sunday. furosemide 2020-02 Yes [id number] 20mg Take 1 U nivers 20 mg 1-01 tablet by ity of tablet 00:00: mouth [place] 00 every Medical Sunday, Branch Sunday and Sunday. furosemide 2020-02 Yes [id number] 20mg Take 1 U nivers 20 mg 1-01 tablet by ity of tablet 00:00: mouth [place] 00 every Medical Sunday, Branch Sunday and Sunday. furosemide 2020-02 Yes [id number] 20mg Take 1 U nivers 20 mg 1-01 tablet by ity of tablet 00:00: mouth [place] 00 every Medical Sunday, Branch Sunday and Sunday. furosemide 2020-02 Yes [id number] 20mg Take 1 U nivers 20 mg 1-01 tablet by ity of tablet 00:00: mouth [place] 00 every Medical Sunday, Branch Sunday and Sunday. furosemide 2020-02 Yes [id number] 20mg Take 1 U nivers 20 mg 1-01 tablet by ity of tablet 00:00: mouth [place] 00 every Medical Sunday, Branch Sunday and Sunday. furosemide 2020-02 Yes [id number] 20mg Take 1 U nivers 20 mg 1-01 tablet by ity of tablet 00:00: mouth [place] 00 every Medical Sunday, Branch Sunday and Sunday. furosemide 2020-02 Yes [id number] 20mg Take 1 U nivers 20 mg 1-01 tablet by ity of tablet 00:00: mouth [place] 00 every Medical Sunday, Branch Sunday and Sunday. furosemide 2020-02 Yes [id number] 20mg Take 1 U nivers 20 mg 1-01 tablet by ity of tablet 00:00: mouth [place] 00 every Medical Sunday, Branch Sunday and Sunday. furosemide 2020-02 Yes [id number] 20mg Take 1 U nivers 20 mg 1-01 tablet by ity of tablet 00:00: mouth [place] 00 every Medical Sunday, Branch Sunday and Sunday. furosemide 2020-02 Yes [id number] 20mg Take 1 U nivers 20 mg 1-01 tablet by ity of tablet 00:00: mouth [place] 00 every Medical Sunday, Branch Sunday and Sunday. furosemide 2020-02 Yes [id number] 20mg Take 1 U nivers 20 mg 1-01 tablet by ity of tablet 00:00: mouth [place] 00 every Medical Sunday, Branch Sunday and Sunday. metoprolol 2020-02 Yes 25mg Take 25 mg U nivers succinate 0-31 by mouth ity of (TOPROL XL 16:03: daily. [place] ORAL) Medical Branch inFLIXimab 2020-02 Yes 840mg Inject 840 Univers (REMICADE) 0-31 mg ity of 100 mg 16:03: intravenou [place] injection 38 sly every Medic al 6 (six) Branch weeks. predniSONE 2020-02 Yes 20mg Take 20 mg U nivers 10 mg 0-31 by mouth ity of tablet 16:03: daily. [address] Branch Hydrocodone 2020-02 Yes 1{tbl} Take 1 Un matt -Acetaminop 0-31 tablet by ity of hen 7.5-300 16:03: mouth 3 [place] mg tablet 38 (three) Medical times [place] daily. tiZANidine 2020-02 Yes 4mg Take 4 mg Un matt 4 mg tablet 0-31 by mouth 3 it y of 16:03: (three) [place] [address] times [facility] daily. Branch foLIC acid 2020-02 Yes 3mg Take 3 mg Un matt 1 mg tablet 0-31 by mouth ity of 16:03: daily. [address] Branch methocarbam 2020-02 Yes 500mg Take 500 U nivers oL 500 mg 0-31 mg by ity of tablet 16:03: mouth at [place] [address] bedtime. Medical Branch dicyclomine 2020-02 Yes 20mg Take 20 mg Univers 20 mg 0-31 by mouth 3 ity of tablet 16:03: (three) [place] [address] times [facility] daily. Branch famotidine 2020-02 Yes 40mg Take 40 mg U nivers 40 mg 0-31 by mouth ity of tablet 16:03: at [place] [address] bedtime. Medical Branch albuterol 2020-02 Yes 2{puff} [...] (TOPROL XL 16:03: daily. [place] ORAL) 38 [facility] inFLIXimab 2020-02 Yes 840mg Inject 840 Univers (REMICADE) 0-31 mg ity of 100 mg 16:03: intravenou [place] injection 38 sly every Medic al 6 (six) Branch weeks. metoprolol 2020-02 Yes 25mg Take 25 mg U nivers succinate 0-31 by mouth ity of (TOPROL XL 16:03: daily. [place] ORAL) 38 [facility] inFLIXimab 2020-02 Yes 840mg Inject 840 Univers (REMICADE) 0-31 mg ity of 100 mg 16:03: intravenou [place] injection 38 sly every Medic al 6 (six) Branch weeks. metoprolol 2020-02 Yes 25mg Take 25 mg U nivers succinate 0-31 by mouth ity of (TOPROL XL 16:03: daily. [place] ORAL) [address] [place] [address] inFLIXimab 2020-02 Yes 840mg Inject 840 Univers (REMICADE) 0-31 mg ity of 100 mg 16:03: intravenou [place] injection 38 sly every Medic al 6 (six) Branch weeks. metoprolol 2020-02 Yes 25mg Take 25 mg U nivers succinate 0-31 by mouth ity of (TOPROL XL 16:03: daily. [place] ORAL) [address] [place] [address] inFLIXimab 2020-02 Yes 840mg Inject 840 Univers (REMICADE) 0-31 mg ity of 100 mg 16:03: intravenou [place] injection 38 sly every Medic al 6 (six) Branch weeks. metoprolol 2020-02 Yes 25mg Take 25 mg U nivers succinate 0-31 by mouth ity of (TOPROL XL 16:03: daily. [place] ORAL) [address] [place] [address] inFLIXimab 2020-02 Yes 840mg Inject 840 Univers [...] weekly. Medical Branch NaCl 0.9% 2020-02- No [id number] 1000mg Infuse Univers (NS) PgBk 0- 11-11 1,000 mg ity o f 50 mL with 00:00: 05:59 every 12 [place] ceFEPIme 1 00 :00 (twelve) Medic al gram SolR hours for Branc h 1,000 mg 10 days. vancomycin/ 2020-02- No [id number] 1500mg 1,500 mg Univers 0.9 % sod 0 1111 by IV ity of chloride 00:00: 05:59 Infusion [place] (VANCOMYCIN 00 :00 route Medical 1500 MG IN every 24 Branc h NS 500 ML) (twenty-fo 1.5 ur) hours gram/500 mL for 10 Soln days. NaCl 0.9% 2020-02- No [id number] 1000mg Infuse Univers (NS) PgBk 0 11-11 1,000 mg ity o f 50 mL with 00:00: 05:59 every 12 [place] ceFEPIme 1 00 :00 (twelve) Medic al gram SolR hours for Branc h 1,000 mg 10 days. vancomycin/ 2020-02- No [id number] 1500mg 1,500 mg Univers 0.9 % sod [...] [place] 40 mEq 00 :00 dose, On [facility] Fri Branch 12/10/20 at 1830, Routine tolvaptan 2020-02 No 15mg 15 mg, Unive rs (SAMSCA) 0 10-30 Oral, ONCE ity of tablet 15 23:30: 01:25 NOW, 1 [place] mg 00 :00 dose, On [facility] Branch 12/10/20 at 1830, Routine
administrative appeals tribunal member approving Restricted medication : MIGNONАНДРЕЙNICOLE Branch [...] ity of 1,000 mg in 17:45: Piggyback, [place] NaCl 0.9% 00 Q12H ABX, Medic al (NS) 50 mL First dose Bra [facility] MINI-BAG on Sun12/10/20 at 1245, Until Discontinu ed, Administer over 30 Minutes, 50 mL
Reas on for Anti-Infec tive: Documented Infection< br>Documen karly Infection Site: Skin / Soft Tissue
Duration of Therapy: Other (see Comments) potassium 2020-02 No 30mmol 30 mmol, U nivers phosphate 0- 10-29 IV ity of 30 mmol in 13:15: 14:16 Piggyback, [place] NaCl 0.9% 00 :00 ONCE, 1 Medical [...] dose [place] mg 00 :55 on [facility] 12/09/20 Branch at 2000, Until Discontinu ed, Routine potassium 2020-02 No 15mmol 15 mmol, U nivers phosphate 0- 10-28 IV ity of 15 mmol in 15:45: 16:34 Piggyback, [place] NaCl 0.9% 00 :00 ONCE, 1 Medical (NS) 150 mL dose, On Bran ch piggyback [facility] 12/09/20 at 1045, 150 mL predniSONE 2020-02 Yes 30mg 30 mg, Unive rs (DELTASONE) 0-28 Oral, ity of tablet 30 15:00: DAILY, [place] mg 00 First dose Medical on [facility] 12/09/20 at 1000, Until Discontinu ed, Routine calcitrioL 2020-02 Yes .5ug 0.5 mcg, Uni vers (ROCALTROL) 0-28 Oral, ity of capsule 0.5 15:00: DAILY, [place] mcg 00 First dose Medical on [facility] Branch 12/09/20 at 1000, Until Discontinu ed, Routine KCL 2020-02 No 40meq 40 mEq, Univers (KLOR-CON 0-09 12-28 Oral, Q4H, ity of M20) tablet 15:00: 16:35 2 doses, [place] 40 mEq 00 :00 First dose Medical (after Branch last modificati on) on [facility] 12/09/20 at 1000, Last dose on [place] 12/09/20 at 1200, Routine hydrocortis 2020-02- No 60mg 60 mg, IV Univers one sod 0-09 12- Piggyback, ity o f succ 13:43: 14:47 DAILY, [place] ([facility]) 60 13 :30 First dose Me dical mg in NaCl (after Branch 0.9% (NS) last piggyback modificati on) on [facility] 12/09/20 at 0900, Until Discontinu ed, Administer over 30 Minutes, 60 mL iopamidol 2020-02 No [id number] 120mL 120 mL, Univers (ISOVUE 0-08 12- Intravenou ity o f 370-500 mL) 17:23: 17:24 s, ONCE, 1 [place] injection 00 :00 dose, On Medica l 120 mL Sun [place] 12/08/20 at 1245, Routine KCL 2020-02 No 20meq 20 mEq, Univers (KLOR-CON 012-09 Oral, ity of M20) tablet 14:00: 14:47 DAILY, [place] 20 mEq 00 :30 First dose Medical on Sun [place] 12/08/20 at 0900, Until Discontinu ed, Routine hydrocortis 2020-02 No 60mg 60 mg, IV Univers one sod 012-09 Piggyback, ity o f succ 01:00: 13:43 Q12H, [place] ([facility]) 60 00 :20 First dose Me dical [...] 10 mL 04 Starting Medical on Sun [place] 12/07/20 at 1249, Until Discontinu ed, Routine, [...] dose [place] mg 00 on [facility] 12/06/20 Branch at 2100, Until Discontinu ed, Routine Nitrofurant 2020-02- No 100mg 100 mg, U nivers oin&Nit. 0-12-10 Oral, BID, ity of Macrocryst 01:00: 16:54 First dose [place] (MACROBID) 00 :09 on [facility] Medical 100 mg 12/06/20 Branch capsule 100 at 2000, mg Until Discontinu ed, Routine
Reason for Anti-Infec tive: Documented Infection< br>Documen karly Infection Site: Urine
D uration of Therapy: 7 days lactobacill 2020-02 Yes .5mg 0.5 mg, Uni vers us 0-25 Oral, TID, ity of acidophilus 19:00: First dose [place] tablet 0.5 00 on [facility] Medical mg 12/06/20 Branch at [...] First dose Med ical 25 mg on [facility] 12/06/20 at 0900, Until Discontinu ed foLIC acid 2020-02 Yes 3mg 3 mg, Univer s (FOLATE) 0-25 Oral, ity of tablet 3 mg 14:00: DAILY, [place] 00 First dose Medical on [facility] 12/06/20 at 0900, Until Discontinu ed, Routine diphenoxyla 2020-02- No 1{tbl} 1 tablet, Univers te-atropine 0-25 10- Oral, ity of (LOMOTIL) 14:00: 17:51 DAILY, [place] 2.5-0.025 00 :45 First dose Medi bernadine mg tablet 1 on [facility] tablet 12/06/20 at 0900, Until Discontinu ed, Routine gabapentin 2020-02 Yes 600mg 600 mg, Uni vers (NEURONTIN) 0-25 Oral, TID, it y of tablet 600 13:00: First dose [place] mg 00 on [facility] 12/06/20 Branch at 0800, Until Discontinu ed, Routine hydrocortis 2020-02- No 60mg 60 mg, IV Univers one sod 0-25 12-07 Piggyback, ity o f succ 11:00: 22:27 Q8H, First [place] (CORTEF) 60 00 :12 dose on Medic al mg in NaCl [facility] Branch 0.9% (NS) 12/06/20 piggyback [...] 0-25 Oral, ity of imeth 09:20: Q6HPRN, [place] (MAALOX 42 Starting Medical PLUS / on [...] IV Piggyback, Q12H ABX, First dose on [place] 12/05/20 at 2330, Until Discontinu ed, Administer over 90 Minutes
Reason for Anti-Infec tive: Empiric Therapy for Suspected Infection< br>Empiric Therapy Site: Blood
D uration of therapy: 7 days heparin 2020-02 Yes 5000U 5,000 Univers (porcine) 0-25 Units, ity of injection 03:00: Subcutaneo [place] 5,000 Units 00 us, Q8H, Medi bernadine First dose Branch on [place] 12/05/20 at 2200, Until Discontinu ed, Routine busPIRone 2020-02 Yes 20mg 20 mg, Univer s (BUSPAR) 0-25 Oral, TID, ity o f tablet 20 02:30: First dose [place] mg 00 (after Medical last Branch modificati on) on [place] 12/05/20 at 2130, Until Discontinu ed, Routine [...] QHSPRN, [place] 44 Starting Medical on [place] Branch 12/05/20 at 2120, Until Discontinu ed, Routine, Anxiety, Agitation, insomnia HYDROcodone 2020-02- No 7.5mg 7.5 mg, U nivers -acetaminop 0-25 10-25 Oral, ity of hen (HYCET) 02:21: 09:22 Q6HPRN, [place] 7.5-325 29 :17 Starting Medical mg/15 mL on [place] Branch solution 12/05/20 7.5 mg at 2120, [...] 10 mEq First dose [facility] on Sun12/05/20 at 2100, Last dose [...] mL 00 :00 dose, On Medical (ISO-OSM) [facility] RTU IV 12/05/20 infusion 2 at 2014, g Routine potassium 2020-02 No 10meq 10 mEq, IV Univers chloride in 0-25 10-25 Piggyback, i ty of water 10 01:00: 03:07 Q1H, 4 [place] mEq/100 mL 00 :43 doses, Medical RTU 10 mEq First dose [facility] on Sun12/05/20 at 2000, Last dose on Sun12/05/20 at 2300, Administer over 60 Minutes, 100 mL KCL 2020-02 No 40meq 40 mEq, Univers (KLOR-CON 0-25 10-25 Oral, Q1H, ity of M20) tablet 01:00: 02:59 2 doses, [place] 40 mEq 00 :00 First dose Medical on [place] Branch 12/05/20 at 2000, Last dose on [...] CONTINUOUS Medic al , Starting Branch on [place] 12/05/20 at 1630, Until [place] 12/05/20 at 1900, Routine NaCl 0.9% 2020-02- No 1000mL at 999 Uni vers (NS) bolus 0-24 10-24 mL/hr, ity of infusion 21:30: 21:43 1,000 mL, [place] 1,000 mL 00 :00 IV Medical Infusion, Branch ONCE, 1 dose, On [place] 12/05/20 at 1630, STAT ondansetron 2020-02 Yes 4mg 4 mg, Slow Univers (ZOFRAN 0-24 IV Push, ity of (PF)) 21:29: Q6HPRN, [place] injection 4 30 Starting Medi bernadine mg on [place] Branch 12/05/20 at 1629, Until Discontinu ed, Routine, Nausea and Vomiting (N/V) acetaminoph 2020-02 Yes 650mg 650 mg, Un matt en 0-24 Oral, ity of (TYLENOL) 21:29: Q6HPRN, [place] tablet 650 19 Starting Medic al mg on [place] Branch 12/05/20 at 1629, Until Discontinu ed, [...] 2 [place] 00 :00 (two) Medical times [place] daily. sulfamethox 2020-02- No 1{tbl} Take 1 U nivers azole-trime 0-20 10-31 tablet by it y of thoprim 00:00: 00:00 mouth 2 [place] 400-80 mg 00 :00 (two) Medical per tablet times [place] daily. AIMOVIG Yes 140mg INJECT 140 Uni [...] [place] AtIn 00 ONCE EVERY Medical MONTH. [place] AIMOVIG 2020-0 Yes 140mg INJECT 140 Uni vers AUTOINJECTO 8-31 MG UNDER ity of R 140 mg/mL 00:00: THE SKIN [place] AtIn 00 ONCE EVERY Medical MONTH. [place] AIMOVIG 2020-0 Yes 140mg INJECT 140 Uni vers AUTOINJECTO 8-31 MG UNDER ity of R 140 mg/mL 00:00: THE SKIN [place] AtIn 00 ONCE EVERY Medical MONTH. [place] AIMOVIG 0 Yes 140mg INJECT 140 Uni vers AUTOINJECTO 8-31 MG UNDER ity of R 140 mg/mL 00:00: THE SKIN [place] AtIn 00 ONCE EVERY Medical MONTH. [place] AIMOVIG 2020-0 Yes 140mg INJECT 140 Uni vers AUTOINJECTO 8-31 MG UNDER ity of R 140 mg/mL 00:00: THE SKIN [place] AtIn 00 ONCE EVERY Medical MONTH. [place] AIMOVIG 0 Yes 140mg INJECT 140 Uni vers AUTOINJECTO 8-31 MG UNDER ity of R 140 mg/mL 00:00: THE SKIN [place] AtIn 00 ONCE EVERY Medical MONTH. [place] magnesium Yes 400mg 400 mg, Univ ers oxide 6-03 Oral, ity of (MAG-OX 14:00: DAILY, [place] 400) tablet 00 First dose Me dical 400 mg on [place] 07/15/20 at 0900, Until Discontinu ed, Routine busPIRone Yes 20mg 20 mg, Univer s (BUSPAR) 6-03 Oral, BID, ity o f tablet 20 01:00: First dose [place] mg 00 on Sun [facility] 07/14/20 at [place] 1999, Until Discontinu ed, Routine magnesium 2020-0 Yes [id number] 400mg Take 400 Univers oxide 420 6-03 mg by ity of mg Tab 00:00: mouth [place] 00 daily. [facility] magnesium 0 Yes [id number] 400mg Take 400 Univers oxide 420 6-03 mg by ity of mg Tab 00:00: mouth [place] 00 daily. [facility] magnesium 2020-0 Yes [id number] 400mg Take 400 Univers oxide 420 6-03 mg by ity of mg Tab 00:00: mouth [place] 00 daily. Medical Branch magnesium 2020-0 Yes [id number] 400mg Take 400 Univers oxide 420 6-03 mg by ity of mg Tab 00:00: mouth [place] 00 daily. Medical Branch magnesium 2020-0 Yes [id number] 400mg Take 400 Univers oxide 420 6-03 mg by ity of mg Tab 00:00: mouth [place] 00 daily. Medical Branch magnesium 2020-0 Yes [id number] 400mg Take 400 Univers oxide 420 6-03 mg by ity of mg Tab 00:00: mouth [place] 00 daily. Medical Branch magnesium 2020-0 Yes [id number] 400mg Take 400 Univers oxide 420 6-03 mg by ity of mg Tab 00:00: mouth [place] 00 daily. Medical Branch magnesium 2020-0 Yes [id number] 400mg Take 400 Univers oxide 420 6-03 mg by ity of mg Tab 00:00: mouth [place] 00 daily. Medical Branch magnesium 2020-0 Yes [id number] 400mg Take 400 Univers oxide 420 6-03 mg by ity of mg Tab 00:00: mouth [place] 00 daily. Medical Branch magnesium 2020-0 Yes [id number] 400mg Take 400 Univers oxide 420 6-03 mg by ity of mg Tab 00:00: mouth [place] 00 daily. Medical Branch magnesium 2020-0 Yes [id number] 400mg Take 400 Univers oxide 420 6-03 mg by ity of mg Tab 00:00: mouth [place] 00 daily. Medical Branch magnesium 2020-0 Yes [id number] 400mg Take 400 Univers oxide 420 6-03 mg by ity of mg Tab 00:00: mouth [place] 00 daily. Medical Branch magnesium 2020-0 Yes [id number] 400mg Take 400 Univers oxide 420 6-03 mg by ity of mg Tab 00:00: mouth [place] 00 daily. Medical Branch magnesium 2020-0 Yes [id number] 400mg Take 400 Univers oxide 420 6-03 mg by ity of mg Tab 00:00: mouth [place] 00 daily. Medical Branch magnesium 2020-0 1- No [id number] 400mg Take 400 Univers oxide 420 6-03 [...] Last dose on Sun07/15/20 at 0600, Routine
administrative appeals tribunal member approving Restricted medication : JUDE CHRISTINA [...] mg 00 :00 ONCE, 1 Medical dose, [facility] Branch 07/14/20 at 0615, Routine
administrative appeals tribunal member approving Restricted medication : JEANETTEMATHEUS CHRISTINA [...] 00 CONTINUOUS Medic al , Starting Branch [facility] 07/14/20 at 0515, Until Discontinu ed, Routine acetaminoph Yes 650mg 650 mg, Un matt en 07-14 Oral, ity of (TYLENOL) 10:11: Q6HPRN, [place] tablet 650 51 Starting Medic al mg [facility] 07/14/20 Branch at 0511, Until Discontinu ed, Routine, Pain (scale 4-6) docusate Yes 100mg 100 mg, Unive rs (COLACE) 07-14 Oral, ity of capsule 100 10:11: QDAILYPRN, [place] mg 50 Starting Medical [facility] 07/14/20 Branch at 0511, Until [...] Branch 07/13/20 at 1999, GIGI amitriptyli Yes [id number] 25mg Take 1 Univers ne 25 mg 6-02 tablet by ity of tablet 00:00: mouth at [place] [address] bedtime. Medical Branch riboflavin, Yes [id number] 400mg Take 400 [facility] vitamin B2, 6-02 mg by ity of 400 mg Tab 00:00: mouth [place] 00 daily. Medical Branch amitriptyli Yes [id number] 25mg Take 1 [facility] ne 25 mg 6-02 tablet by ity of tablet 00:00: mouth at [place] [address] bedtime. Medical Branch riboflavin, Yes [id number] 400mg Take 400 [facility] vitamin B2, 6-02 mg by ity of 400 mg Tab 00:00: mouth [place] 00 daily. Medical Branch amitriptyli Yes [id number] 25mg Take 1 [facility] ne 25 mg 6-02 tablet by ity of tablet 00:00: mouth at [place] [address] bedtime. Medical Branch riboflavin, Yes [id number] 400mg Take 400 [facility] vitamin B2, 6-02 mg by ity of 400 mg Tab 00:00: mouth [place] 00 daily. Medical Branch amitriptyli Yes [id number] 25mg Take 1 [facility] ne 25 mg 6-02 tablet by ity of tablet 00:00: mouth at [place] [address] bedtime. Medical Branch riboflavin, Yes [id number] 400mg Take 400 [facility] vitamin B2, 6-02 mg by ity of 400 mg Tab 00:00: mouth [place] 00 daily. Medical Branch amitriptyli Yes [id number] 25mg Take 1 [facility] ne 25 mg 6-02 tablet by ity of tablet 00:00: mouth at [place] [address] bedtime. Medical Branch riboflavin, Yes [id number] 400mg Take 400 [facility] vitamin B2, 6-02 mg by ity of 400 mg Tab 00:00: mouth [place] 00 daily. Medical Branch amitriptyli Yes [id number] 25mg Take 1 [facility] ne 25 mg 6-02 tablet by ity of tablet 00:00: mouth at [place] [address] bedtime. Medical Branch riboflavin, Yes [id number] 400mg Take 400 [facility] vitamin B2, 6-02 mg by ity of 400 mg Tab 00:00: mouth [place] 00 daily. Medical Branch amitriptyli Yes [id number] 25mg Take 1 [facility] ne 25 mg 6-02 tablet by ity of tablet 00:00: mouth at [place] bedtime. Medical Branch riboflavin, Yes [id number] 400mg Take 400 [facility] vitamin B2, 6-02 mg by ity of 400 mg Tab 00:00: mouth [place] 00 daily. Medical Branch amitriptyli Yes [id number] 25mg Take 1 [facility] ne 25 mg 6-02 tablet by ity of tablet 00:00: mouth at [place] bedtime. Medical Branch riboflavin, Yes [id number] 400mg Take 400 [facility] vitamin B2, 6-02 mg by ity of 400 mg Tab 00:00: mouth 00 daily. Medical Branch amitriptyli Yes [id number] 25mg Take 1 [facility] ne 25 mg 6-02 tablet by ity of tablet 00:00: mouth at [place] bedtime. Medical Branch riboflavin, Yes [id number] 400mg Take 400 [facility] vitamin B2, 6-02 mg by ity of 400 mg Tab 00:00: mouth daily. Medical Branch amitriptyli Yes [id number] 25mg Take 1 [facility] ne 25 mg 6-02 tablet by ity of tablet 00:00: mouth at [place] bedtime. Medical Branch riboflavin, Yes [id number] 400mg Take 400 [facility] vitamin B2, 6-02 mg by ity of 400 mg Tab 00:00: mouth daily. Medical Branch amitriptyli Yes [id number] 25mg Take 1 [facility] ne 25 mg 6-02 tablet by ity of tablet 00:00: mouth at [place] bedtime. Medical Branch riboflavin, Yes [id number] 400mg Take 400 [facility] vitamin B2, 6-02 mg by ity of 400 mg Tab 00:00: mouth 00 daily. Medical Branch amitriptyli Yes [id number] 25mg Take 1 [facility] ne 25 mg 6-02 tablet by ity of tablet 00:00: mouth at [place] bedtime. Medical Branch riboflavin, Yes [id number] 400mg Take 400 [facility] vitamin B2, 6-02 mg by ity of 400 mg Tab 00:00: mouth [place] 00 daily. Medical Branch amitriptyli Yes [id number] 25mg Take 1 [facility] ne 25 mg 6-02 tablet by ity of tablet 00:00: mouth at [place] 00 bedtime. Medical Branch riboflavin, Yes [id number] 400mg Take 400 [facility] vitamin B2, 6-02 mg by ity of 400 mg Tab 00:00: mouth [place] 00 daily. Medical Branch amitriptyli Yes [id number] 25mg Take 1 [facility] ne 25 mg 6-02 tablet by ity of tablet 00:00: mouth at [place] 00 bedtime. Medical Branch riboflavin, Yes [id number] 400mg Take 400 [facility] vitamin B2, 6-02 mg by ity of 400 mg Tab 00:00: mouth [place] 00 daily. Medical Branch amitriptyli 2020- No [id number] 25mg Take 1 [facility] ne 25 mg 6-02 10-24 tablet by ity o f tablet 00:00: 00:00 mouth at [place] 00 :00 bedtime. Medical Branch riboflavin, 2020- No [id number] 400mg Take 400 [facility] vitamin B2, 6-02 [...] [place] mg 00 :00 1 dose, Medical [facility] 07/06/20 at 2230, STAT cloNIDine 2020-0 2020- No .2mg 0.2 mg, Univ ers (CATAPRES) 07-07 Oral, ity of tablet 0.2 03:00: 01:58 ONCE, 1 [place] mg 00 :00 dose, [facility] 07/06/20 at Branch 2200, STAT ondansetron 2020- No 4mg 4 mg, Univ ers (ZOFRAN-ODT 07-07 Oral, ity of ) 02:00: 01:10 ONCE, 1 [place] disintegrat 00 :00 dose, [facility] Med ical ing tablet 07/06/20 at [facility] 4 mg 2100, Routine butorphanol 2020- No 2mg 2 mg, Univ ers (STADOL) 07-07 Intramuscu ity of injection 2 02:00: 01:10 lar, ONCE [place] mg 00 :00 NOW, 1 Medical dose, [facility] 07/06/20 at 2100, Routine ondansetron 2020-0 Yes [id number] 4mg Take 1 Univers (ZOFRAN) 4 5-25 tablet by ity of mg tablet 00:00: mouth [place] 00 every 8 Medical (eight) Branch hours as needed for Nausea and Vomiting (N/V). ondansetron 2020-0 Yes [id number] 4mg Take 1 [facility] (ZOFRAN) 4 5-25 tablet by ity of mg tablet 00:00: mouth [place] 00 every 8 Medical (eight) Branch hours as needed for Nausea and Vomiting (N/V). ondansetron 2021-0 Yes [id number] 4mg Take 1 Univers (ZOFRAN) 4 5-25 tablet by ity of mg tablet 00:00: mouth [place] 00 every 8 Medical (eight) Branch hours as needed for Nausea and Vomiting (N/V). ondansetron 202-0 Yes [id number] 4mg Take 1 Univers (ZOFRAN) 4 5-25 tablet by ity of mg tablet 00:00: mouth [place] 00 every 8 Medical (eight) Branch hours as needed for Nausea and Vomiting (N/V). ondansetron 2020-0 Yes [id number] 4mg Take 1 Univers (ZOFRAN) 4 5-25 tablet by ity of mg tablet 00:00: mouth [place] 00 every 8 Medical (eight) Branch hours as needed for Nausea and Vomiting (N/V). ondansetron 2020-0 Yes [id number] 4mg Take 1 [facility] (ZOFRAN) 4 5-25 tablet by ity of mg tablet 00:00: mouth [place] 00 every 8 Medical (eight) Branch hours as needed for Nausea and Vomiting (N/V). ondansetron 2020-0 Yes [id number] 4mg Take 1 Univers (ZOFRAN) 4 5-25 tablet by ity of mg tablet 00:00: mouth [place] 00 every 8 Medical (eight) Branch hours as needed for Nausea and Vomiting (N/V). ondansetron 2020-0 Yes [id number] 4mg Take 1 Univers (ZOFRAN) 4 5-25 tablet by ity of mg tablet 00:00: mouth [place] 00 every 8 Medical (eight) Branch hours as needed for Nausea and Vomiting (N/V). ondansetron 2020-0 Yes [id number] 4mg Take 1 [facility] (ZOFRAN) 4 5-25 tablet by ity of mg tablet 00:00: mouth [place] 00 every 8 Medical (eight) Branch hours as needed for Nausea and Vomiting (N/V). ondansetron 2020-0 Yes [id number] 4mg Take 1 Univers (ZOFRAN) 4 5-25 tablet by ity of mg tablet 00:00: mouth [place] 00 every 8 Medical (eight) Branch hours as needed for Nausea and Vomiting (N/V). ondansetron 1-0 Yes [id number] 4mg Take 1 Univers (ZOFRAN) 4 5-25 tablet by ity of mg tablet 00:00: mouth [place] 00 every 8 Medical (eight) Branch hours as needed for Nausea and Vomiting (N/V). ondansetron 2020-0 Yes [id number] 4mg Take 1 Univers (ZOFRAN) 4 5-25 tablet by ity of mg tablet 00:00: mouth [place] 00 every 8 Medical (eight) Branch hours as needed for Nausea and Vomiting (N/V). ondansetron 2020-0 Yes [id number] 4mg Take 1 Univers (ZOFRAN) 4 5-25 tablet by ity of mg tablet 00:00: mouth [place] 00 every 8 Medical (eight) Branch hours as needed for Nausea and Vomiting (N/V). ondansetron 2020-0 Yes [id number] 4mg Take 1 Univers (ZOFRAN) 4 5-25 tablet by ity of mg tablet 00:00: mouth [place] 00 every 8 Medical (eight) Branch hours as needed for Nausea and Vomiting (N/V). ondansetron 2020-0 Yes [id number] 4mg Take 1 [facility] (ZOFRAN) 4 5-25 tablet by ity of mg tablet 00:00: mouth [place] 00 every 8 Medical (eight) Branch hours as needed for Nausea and Vomiting (N/V). ondansetron 2020-0 Yes [id number] 4mg Take 1 Univers (ZOFRAN) 4 5-25 tablet by ity of mg tablet 00:00: mouth [place] 00 every 8 Medical (eight) Branch hours as needed for Nausea and Vomiting (N/V). ondansetron 2020-0 Yes [id number] 4mg Take 1 [facility] (ZOFRAN) 4 5-25 tablet by ity of mg tablet 00:00: mouth [place] 00 every 8 Medical (eight) Branch hours as needed for Nausea and Vomiting (N/V). ondansetron 2020-0 Yes [id number] 4mg Take 1 [facility] (ZOFRAN) 4 5-25 tablet by ity of mg tablet 00:00: mouth [place] 00 every 8 Medical (eight) Branch hours as needed for Nausea and Vomiting (N/V). ondansetron 2020-0 Yes [id number] 4mg Take 1 Univers (ZOFRAN) 4 5-25 tablet by ity of mg tablet 00:00: mouth [place] 00 every 8 Medical (eight) Branch hours as needed for Nausea and Vomiting (N/V). ondansetron 2020-0 Yes [id number] 4mg Take 1 Univers (ZOFRAN) 4 5-25 tablet by ity of mg tablet 00:00: mouth [place] 00 every 8 Medical (eight) Branch hours as needed for Nausea and Vomiting (N/V). ondansetron Yes [id number] 4mg Take 1 [facility] (ZOFRAN) 4 5-25 tablet by ity of mg tablet 00:00: mouth [place] 00 every 8 Medical (eight) Branch hours as needed for Nausea and Vomiting (N/V). ondansetron 2020- No [id number] 4mg Take 1 [facility] (ZOFRAN) 4 5-25 [...] [facility] NaCl 0.9% 07/04/20 at [facility] (NS) 50 mL 1615, 50 piggyback mL butorphanol 2020- No 1mg 1 mg, IV U nivers (STADOL) 07-04 Push, ity of injection 1 19:30: 19:00 ONCE, 1 [place] mg 00 :00 dose, [facility] 07/04/20 at Branch 1430, Routine LORazepam No 1mg 1 mg, Slow U nivers (ATIVAN) 07-04 IV Push, ity of injection 1 19:30: 19:00 ONCE, 1 [place] mg 00 :00 dose, [facility] 07/04/20 at Branch 1430, STAT NaCl 0.9% No 1000mL at 999 Uni vers (NS) IV 07-04 mL/hr, IV ity of infusion 19:30: 20:53 Infusion, [place] 1,000 mL 00 :00 ONCE, 1 Medical dose, [facility] 07/04/20 at 1430, Routine dexamethaso No 10mg 10 mg, IV Univers ne 07-04 Push, ity of (DECADRON 19:30: 19:02 ONCE, 1 [place] PHOSPH[place] 00 :00 dose, [facility] bernadine injection 07/04/20 at Bran ch 10 mg 1430, STAT butalbital- 2020- No 2{tbl} 2 tablet, Univers acetaminoph 07-04 Oral, ity of en-caff 19:30: 18:40 ONCE, 1 [place] (ESGIC) 00 :00 dose, [facility] 50-325-40 07/04/20 at Bran ch mg tablet 2 1430, tablet Routine butalbital- Yes [id number] 1{tbl} Take 1 [facility] acetaminoph 5-23 tablet by ity of en-caff 00:00: mouth [place] 50-325-40 00 every 6 Medical mg tablet (six) Branch hours as needed for Pain (scale 7-10). butalbital- Yes [id number] 1{tbl} Take 1 [facility] acetaminoph 5-23 tablet by ity of en-caff 00:00: mouth [place] 50-325-40 00 every 6 Medical mg tablet (six) Branch hours as needed for Pain (scale 7-10). butalbital- Yes [id number] 1{tbl} Take 1 [facility] acetaminoph 5-23 tablet by ity of en-caff 00:00: mouth [place] 50-325-40 00 every 6 Medical mg tablet (six) Branch hours as needed for Pain (scale 7-10). butalbital- Yes [id number] 1{tbl} Take 1 [facility] acetaminoph 5-23 tablet by ity of en-caff 00:00: mouth [place] 50-325-40 00 every 6 Medical mg tablet (six) Branch hours as needed for Pain (scale 7-10). butalbital- Yes [id number] 1{tbl} Take 1 [facility] acetaminoph 5-23 tablet by ity of en-caff 00:00: mouth [place] 50-325-40 00 every 6 Medical mg tablet (six) Branch hours as needed for Pain (scale 7-10). butalbital- Yes [id number] 1{tbl} Take 1 [facility] acetaminoph 5-23 tablet by ity of en-caff 00:00: mouth [place] 50-325-40 00 every 6 Medical mg tablet (six) Branch hours as needed for Pain (scale 7-10). butalbital- Yes [id number] 1{tbl} Take 1 [facility] acetaminoph 5-23 tablet by ity of en-caff 00:00: mouth [place] 50-325-40 00 every 6 Medical mg tablet (six) Branch hours as needed for Pain (scale 7-10). butalbital- Yes [id number] 1{tbl} Take 1 [facility] acetaminoph 5-23 tablet by ity of en-caff 00:00: mouth [place] 50-325-40 00 every 6 Medical mg tablet (six) Branch hours as needed for Pain (scale 7-10). butalbital- Yes [id number] 1{tbl} Take 1 [facility] acetaminoph 5-23 tablet by ity of en-caff 00:00: mouth [place] 50-325-40 00 every 6 Medical mg tablet (six) Branch hours as needed for Pain (scale 7-10). butalbital- Yes [id number] 1{tbl} Take 1 [facility] acetaminoph 5-23 tablet by ity of en-caff 00:00: mouth [place] 50-325-40 00 every 6 Medical mg tablet (six) Branch hours as needed for Pain (scale 7-10). butalbital- Yes [id number] 1{tbl} Take 1 [facility] acetaminoph 5-23 tablet by ity of en-caff 00:00: mouth [place] 50-325-40 00 every 6 Medical mg tablet (six) Branch hours as needed for Pain (scale 7-10). butalbital- Yes [id number] 1{tbl} Take 1 [facility] acetaminoph 5-23 tablet by ity of en-caff 00:00: mouth [place] 50-325-40 00 every 6 Medical mg tablet (six) Branch hours as needed for Pain (scale 7-10). butalbital- Yes [id number] 1{tbl} Take 1 [facility] acetaminoph 5-23 tablet by ity of en-caff 00:00: mouth [place] 50-325-40 00 every 6 Medical mg tablet (six) Branch hours as needed for Pain (scale 7-10). butalbital- Yes [id number] 1{tbl} Take 1 [facility] acetaminoph 5-23 tablet by ity of en-caff 00:00: mouth [place] 50-325-40 00 every 6 Medical mg tablet (six) Branch hours as needed for Pain (scale 7-10). butalbital- Yes [id number] 1{tbl} Take 1 [facility] acetaminoph 5-23 tablet by ity of en-caff 00:00: mouth [place] 50-325-40 00 every 6 Medical mg tablet (six) Branch hours as needed for Pain (scale 7-10). butalbital- Yes [id number] 1{tbl} Take 1 Univers acetaminoph 5-23 tablet by ity of en-caff 00:00: mouth [place] 50-325-40 00 every 6 Medical mg tablet (six) Branch hours as needed for Pain (scale 7-10). butalbital- Yes [id number] 1{tbl} Take 1 [facility] acetaminoph 5-23 tablet by ity of en-caff 00:00: mouth [place] 50-325-40 00 every 6 Medical mg tablet (six) Branch hours as needed for Pain (scale 7-10). butalbital- Yes [id number] 1{tbl} Take 1 Univers acetaminoph 5-23 tablet by ity of en-caff 00:00: mouth [place] 50-325-40 00 every 6 Medical mg tablet (six) Branch hours as needed for Pain (scale 7-10). butalbital- Yes [id number] 1{tbl} Take 1 Univers acetaminoph 5-23 tablet by ity of en-caff 00:00: mouth [place] 50-325-40 00 every 6 Medical mg tablet (six) Branch hours as needed for Pain (scale 7-10). butalbital- Yes [id number] 1{tbl} Take 1 [facility] acetaminoph 5-23 tablet by ity of en-caff 00:00: mouth [place] 50-325-40 00 every 6 Medical mg tablet (six) Branch hours as needed for Pain (scale 7-10). butalbital- Yes [id number] 1{tbl} Take 1 [facility] acetaminoph 5-23 tablet by ity of en-caff 00:00: mouth [place] 50-325-40 00 every 6 Medical mg tablet (six) Branch hours as needed for Pain (scale 7-10). butalbital- Yes [id number] 1{tbl} Take 1 [facility] acetaminoph 5-23 tablet by ity of en-caff 00:00: mouth [place] 50-325-40 00 every 6 Medical mg tablet (six) Branch hours as needed for Pain (scale 7-10). butalbital- 2020- No [id number] 1{tbl} Take 1 Univers acetaminoph 5-23 10-24 [...] mouth ity of (TOPROL XL 00:16: daily. [place] ORAL) 46 Medical Branch inFLIXimab 2020-0 Yes 840mg Inject 840 Univers (REMICADE) 5-18 mg ity of 100 mg 00:16: intravenou [place] injection 46 sly every Medic al 14 Branch (fourteen) days. dicyclomine Yes 20mg Take 20 mg Univers 20 mg 5-18 by mouth 3 ity of tablet 00:16: (three) [place] 46 times Medical daily. Branch erenumab-ao Yes inject Univ ers oe (AIMOVIG 5-18 under the ity of AUTOINJECTO 00:16: skin. [place] R) 140 46 Medical mg/mL [facility] [place] ondansetron 2020- No 4mg Take 4 mg Univers (ZOFRAN -28 06-17 by mouth ity of ODT) 4 mg 21:55: 00:00 every 8 [place] disintegrat 40 :00 (eight) Medic al ing tablet hours as Branc h needed. busPIRone 2020- No 15mg Take 15 mg U nivers 15 mg -17 05-17 by mouth 3 ity of tablet 21:55: 00:00 (three) [place] 40 :00 times Medical daily. Branch butorphanol 2020- No 1mg 1 mg, IV U nivers (STADOL) 06-28-17 Push, ity of injection 1 21:41: 22:04 ONCE, 1 [place] mg 00 :00 dose, [facility] Medical 06/28/20 at Branch 1645, Routine loperamide 2020- No 2mg 2 mg, Unive rs (IMODIUM 06-28-17 Oral, ity of A-D) 21:30: 22:26 ONCE, 1 [place] capsule 2 00 :00 dose, [facility] Medic al mg 06/28/20 at Branch 1630, Routine LORazepam Yes 1mg 1 mg, Univers (ATIVAN) -17 Oral, ity of tablet 1 mg 20:40: QHSPRN, 2 [place] 49 doses, Medical Starting Branch [facility] 06/28/20 at 1540, Until Discontinu ed, Routine, Anxiety butorphanol 2020- No 1mg 1 mg, IV U nivers (STADOL) 06-28 05-17 Push, ity of injection 1 15:35: 20:07 ONCE, 1 [place] mg 00 :00 dose, [facility] 06/28/20 at Branch 1045, Routine proMETHazin 0 Yes 25mg 25 mg, IV U nivers e 17 Piggyback, ity of (PHENERGAN) 13:15: Q6HPRN, [place] 25 mg in 38 Starting Medical NaCl 0.9% [facility] (NS) 50 mL 06/28/20 at IV 0815, piggyback Until Discontinu ed, Routine, Nausea and Vomiting (N/V) hydrOXYzine Yes 10mg 10 mg, Univ ers (ATARAX) 5-17 Oral, ity of tablet 10 06:58: Q6HPRN, [place] mg 54 Starting Medical [facility] 06/28/20 at 0158, Until Discontinu ed, Routine, Anxiety melatonin 0 Yes 3mg 3 mg, Univers (MELATIN) 5-17 Oral, QHS, ity of tablet 3 mg 02:00: First dose [place] 00 on [facility] 06/27/20 at Branch 2100, Until Discontinu ed, Routine butalbital- 0 Yes 1{tbl} 1 tablet, Univers acetaminoph 5-17 Oral, ity of en-caff 01:06: Q6HPRN, [place] (ESGIC) 14 Starting Medical 50-325-40 [place] Branch mg tablet 1 06/27/20 at tablet [...] mouth 3 [place] 00 (three) Medical times [place] daily. cyclobenzap 2020-0 Yes 5mg Take 1 [...] 4 04 :50 Starting Medi bernadine mg [facility] 06/27/20 at 1625, Until 06/28/20 at 0815, Routine, Nausea and Vomiting (N/V) cyclobenzap Yes 5mg 5 mg, Unive rs rine 5-16 Oral, TID, ity of (FLEXERIL) 16:00: First dose [place] tablet 5 mg 00 on [facility] 06/27/20 at Branch 1100, Until Discontinu ed, Routine ibuprofen Yes 600mg 600 mg, Univ ers (IBU) 5-16 Oral, ity of tablet 600 15:49: Q6HPRN, [place] mg 19 Starting Medical [facility] 06/27/20 at 1049, Until Discontinu ed, Routine, Pain (scale 4-6) pantoprazol 0 Yes 40mg 40 mg, Univ ers e 5-16 Oral, ity of (PROTONIX) 14:00: DAILY, [place] EC tablet 00 First dose Medi bernadine 40 mg on [facility] 06/27/20 at 0900, Until Discontinu ed, Routine losartan 0 Yes 50mg 50 mg, Univers (COZAAR) 5-16 Oral, ity of tablet 50 14:00: DAILY, [place] mg 00 First dose Medical on [facility] 06/27/20 at 0900, Until Discontinu ed, Routine metoprolol Yes 25mg 25 mg, Unive rs succinate 5-16 Oral, ity of XL (TOPROL 14:00: DAILY, [place] XL) tablet 00 First dose Med ical 25 mg on [facility] 06/27/20 at 0900, Until Discontinu ed azaTHIOprin Yes 150mg 150 mg, Un matt e (IMURAN) 5-16 Oral, ity of tablet 150 14:00: DAILY, [place] mg 00 First dose Medical on [facility] 06/27/20 at 0900, Until Discontinu ed, Routine heparin 0 Yes 5000U 5,000 Univers (porcine) 5-16 Units, ity of injection 13:00: Subcutaneo [place] 5,000 Units 00 us, Q12H, Med ical First dose Branch on [place] 06/27/20 at 0800, Until Discontinu ed, Routine dicyclomine 0 Yes 20mg 20 mg, Univ ers (BENTYL) 5-16 Oral, TID, ity o f tablet 20 13:00: First dose [place] mg 00 on [facility] 06/27/20 at Branch 0800, Until Discontinu ed, Routine gabapentin 2020-0 202- No 400mg 400 mg, Un matt (NEURONTIN) 5-16 05-17 Oral, TID, i ty of capsule 400 13:00: 20:40 First dose [place] mg 00 :15 on [facility] 06/27/20 at Branch 0800, Until Discontinu ed, Routine morpHINE 2020-0 202- No 2mg 2 mg, Slow Un matt injection 2 16 05-16 IV Push, ity of mg 10:00: 09:07 ONCE, 1 [place] 00 :00 dose, [facility] 06/27/20 at Branch 0500, GIGI LORazepam 2020- No 2mg 2 mg, Univer s (ATIVAN) 06-27 Oral, ity of tablet 2 mg 06:00: 08:58 ONCE, 1 [place] 00 :00 dose, [facility] 06/27/20 at Branch 0100, Routine gabapentin 2020- No 600mg 600 mg, Un matt (NEURONTIN) 06-27 Oral, ity of tablet 600 05:00: 04:03 ONCE, 1 [place] mg 00 :00 dose, [facility] 06/27/20 at Branch 0000, GIGI [...] [facility] Medical piggyback 06/26/20 at [facility]15, 100 mL LORazepam 2020- No 1mg 1 mg, Univer s (ATIVAN) 06-27 Oral, QHS, ity of tablet 1 mg 04:00: 01:27 2 doses, [place] 00 :00 First dose Medical (after Branch last modificati on) on [facility] 06/26/20 at 2300, Last dose on 06/27/20 [...] inFLIXimab 04 :00 Medical 100 mg Sol[facility] [place] acetaminoph Yes 650mg 650 mg, Un matt [...] 06-27 IV ity of (PHENERGAN) 01:15: 00:18 [facility], [place] 12.5 mg in 00 :00 ONCE, 1 Medica l NaCl 0.9% dose, Sat Branc h (NS) 50 mL 06/26/20 at piggyback 2014, 50 mL morpHINE 2020- No 4mg 4 mg, Slow Un matt injection 4 06-27 IV Push, ity of mg 01:15: 00:18 ONCE, 1 [place] 00 :00 dose, Sat Medical 06/26/20 at Branch 2014, STAT iopamidol 2020- No [id number] 100mL 100 mL, Univers (ISOVUE 06-26 Intravenou [...] of (NITROSTAT) 22:15: 21:26 , ONCE, 1 [place] sublingual 00 :00 dose, Sat Medi bernadine tablet 0.4 06/26/20 at Bra nch mg 1715, GIGI magnesium 2020- No 2g 2 g, IV Univ ers sulfate in 06-26 Piggyback, it y of water 2 22:15: 23:46 ONCE, 1 [place] gram/50 mL 00 :00 dose, Sat Medi [...] at Branch 2315, Routine pantoprazol 2020- No [id number] 40mg Take 1 Univers e 40 mg EC 06-02-22 tablet by ity of tablet 00:00: 04:59 mouth [place] 00 :00 daily for Medical 30 days. Branch pantoprazol 2020- No [id number] 40mg Take 1 Univers e 40 mg EC -02 07-22 tablet by ity of tablet 00:00: 04:59 mouth [place] 00 :00 daily for Medical 30 days. Branch pantoprazol 2020- No [id number] 40mg Take 1 Univers e 40 mg [...] Indication s: acute pain proMETHazin 2020- No [id number] 25mg Take 1 Univers e 25 mg [...] First dose [place] mg 00 on [facility] 06/01/20 at Branch 1415, Until Discontinu ed, Routine HYDROcodone Yes 1{tbl} 1 tablet, Univers -acetaminop 4-20 Oral, ity of hen (NORCO) 19:00: Q6HPRN, [place] 10-325 mg 48 Starting Medica l tablet 1 [facility] tablet 06/01/20 at 1400, Until Discontinu ed, Routine, Pain (scale 4-6) cefpodoxime 2020- No Take by Un matt proxetil -20 04-20 mouth. ity of (VANTIN 18:00: 00:00 [place] ORAL) 17 :00 [facility] Branch proMETHazin Yes 25mg 25 mg, Univ ers e 4-20 Oral, ity of (PHENERGAN) 15:20: Q4HPRN, [place] tablet 25 12 Starting Medica l mg [facility] 06/01/20 at 1020, Until Discontinu ed, Routine, Nausea and Vomiting (N/V) acetaminoph 2020- No 1{tbl} 1 tablet, Univers en-codeine 4-20 04-20 Oral, ity of (TYLENOL 15:18: 19:01 Q4HPRN, [place] #3) 300-30 42 :49 Starting Medic al mg tablet 1 [facility] tablet 06/01/20 at 1018, Until [facility] 06/01/20 at 1401, Routine, Pain (scale 4-6) pantoprazol 2021-0 Yes 40mg 40 mg, Univ ers e 4-20 Oral, ity of (PROTONIX) 14:30: DAILY, [place] EC tablet 00 First dose Medi bernadine 40 mg on [facility] 06/01/20 at 0930, Until Discontinu [...] mg 08:26: Q4HPRN, [place] 30 Starting Medical [facility] 06/01/20 at 0326, Until Discontinu ed, Routine, Pain (scale 7-10) morpHINE 2020- No 2mg 2 mg, Slow Un matt injection 2 -20 04-20 IV Push, ity of mg 06:00: 05:01 ONCE, 1 [place] 00 :00 dose, [facility] 06/01/20 at Branch 0100, Routine amoxicillin 2020- No [id number] 1{tbl} Take 1 Univers -clavulanat 06-01 04-28 tablet by it y of e 00:00: 04:59 mouth 2 [place] (AUGMENTIN) 00 :00 (two) Medical 875-125 mg times Branch per tablet daily for 7 days. proMETHazin 2020- No 25mg 25 mg, IV Univers e 05-31-20 Piggyback, ity of (PHENERGAN) 22:18: 15:20 Q6HPRN, [place] 25 mg in 42 :48 Starting Medical NaCl 0.9% [facility] Branch (NS) 50 mL 05/31/20 at IV 1718, piggyback Until [facility] 06/01/20 at 1020, Routine, Nausea and Vomiting (N/V) acetaminoph Yes 650mg 650 mg, Un matt en 05-31 Oral, ity of (TYLENOL) 15:33: Q6HPRN, [place] tablet 650 00 Starting Medic al mg [facility] 05/31/20 at 1033, Until Discontinu ed, Routine, Temp > 38.5 C butalbital- Yes 1{tbl} 1 tablet, Univers acetaminoph 05-31 Oral, ity of en-caff 15:27: Q6HPRN, [place] (ESGIC) 07 Starting Medical 50-325-40 [facility] mg tablet 1 05/31/20 at tablet 1027, [...] First dose Med ical 25 mg (after [place] last modificati on) on Sun05/31/20 at 0900, Until Discontinu ed enoxaparin Yes 40mg 40 mg, Unive rs (LOVENOX) 05-31 Subcutaneo ity of injection 14:00: [place], DAILY, [place] 40 mg 00 First dose Medical on [facility] 05/31/20 at 0900, Until Discontinu ed, Routine azaTHIOprin 2020- No 50mg 50 mg, Uni vers e (IMURAN) 05-31 04-20 Oral, ity of tablet 50 14:00: 14:19 DAILY, [place] mg 00 :13 First dose Medical on [facility] 05/31/20 at 0900, Until Discontinu ed, Routine gabapentin Yes 400mg 400 mg, Uni vers (NEURONTIN) 05-31 Oral, TID, it y of 400 mg 13:00: First dose [place] 00 on [facility] 05/31/20 at Branch 0800, Until Discontinu ed, Routine dicyclomine Yes 20mg 20 mg, Univ ers (BENTYL) 05-31 Oral, TID, ity o f tablet 20 13:00: First dose [place] mg 00 on [facility] 05/31/20 at Branch 0800, Until Discontinu ed, Routine busPIRone Yes 15mg 15 mg, Univer s (BUSPAR) 05-31 Oral, TID, ity o f tablet 15 13:00: First dose [place] mg 00 on [facility] 05/31/20 at Branch 0800, Until Discontinu ed, Routine temazepam No 15mg 15 mg, Unive rs (RESTORIL) 05-31 Oral, ity of capsule 15 06:30: 05:28 ONCE, 1 [place] mg 00 :00 dose, [facility] 05/31/20 at Branch 0130, Routine proMETHazin No 25mg 25 mg, Uni vers e 05-31 Oral, ity of (PHENERGAN) 05:29: 22:06 Q6HPRN, [place] tablet 25 16 :24 Starting Medica l mg [facility] 05/31/20 at 0029, Until [facility] 05/31/20 at 1706, Routine, Nausea and Vomiting [...] First dose [place] mg 00 :25 on [facility] 05/30/20 at Branch 2000, Until Discontinu ed, Routine piperacilli No 3.375g 3.375 g, Univers n-tazobacta 05-30 IV ity of m (ZOSYN) 22:45: 22:40 Pig[place]back, [place] 3.375 g in 00 :00 ONCE, 1 Medica l NaCl 0.9% dose, [place] [facility] (NS) 100 mL 05/30/20 at MINI-BAG 1745, 100 mL
Reas on for Anti-Infec tive: Documented Infection< br>Documen karly Infection Site: Urine
D uration of Therapy: Other (see Comments) FENTanyl PF 2020- No 75ug 75 mcg, Un matt (SUBLIMAZE 05-30 Slow IV ity o f (PF)) 22:45: 21:55 Push, [place] injection 00 :00 ONCE, 1 Medical 75 mcg dose, [facility] 05/30/20 at 1745, STAT proMETHazin 2020- No 25mg 25 mg, IV Univers e 05-30 Piggyback, ity of (PHENERGAN) 22:45: 22:45 ONCE, 1 [place] 25 mg in 00 :00 dose, [place] [facility] NaCl 0.9% 05/30/20 at Bran ch (NS) 50 mL 1745, 50 piggyback mL NaCl 0.9% 2020- No 1000mL at 100 Uni vers (NS) IV 05-30 04-20 mL/hr, IV ity of infusion 22:30: 19:01 Infusion, [place] 1,000 mL 00 :49 CONTINUOUS Medic al , Starting [facility] 05/30/20 at 1730, Until 06/01/20 at 1401, Routine ondansetron Yes 4mg 4 mg, Slow Univers (ZOFRAN 18 IV Push, ity of (PF)) 22:23: Q6HPRN, [place] injection 4 13 Starting Medi bernadine mg [facility] 05/30/20 at 1723, Until Discontinu ed, Routine, Nausea and Vomiting (N/V) morpHINE 2020- No 4mg 4 mg, Slow Un matt injection 4 05-30-19 IV Push, ity of mg 22:23: 22:22 Q4HPRN, [place] 07 :07 Starting Medical [facility] 05/30/20 at 1723, Until 05/31/20 at 1722, Routine, Pain (scale 7-10) HYDROcodone 2020- No 1{tbl} 1 tablet, Univers -acetaminop 05-30 04-20 Oral, ity of hen (NORCO 22:23: 15:19 Q6HPRN, [place] 5) 5-325 mg 02 :39 Starting Medi bernadine tablet 1 [place] tablet 05/30/20 at 1723, Until 06/01/20 at 1019, Routine, Pain (scale 4-6) acetaminoph 2020- No 650mg 650 mg, U nivers en 05-30 Oral, ity of (TYLENOL) 22:22: 15:33 Q6HPRN, [place] tablet 650 55 :25 Starting Medic al mg [facility] 05/30/20 at 1722, Until 05/31/20 at 1033, Routine, Pain (scale 1-3), Temp > 38.5 C oxybutynin Yes 5mg 5 mg, Univer s chloride 05-30 Oral, ity of (DITROPAN) 22:21: TIDPRN, [place] tablet 5 mg 36 Starting Medi bernadine [facility] 05/30/20 at 1721, Until Discontinu ed, Routine, Bladder spasms iohexol 2020- No [id number] 100mL 100 mL, Univers (OMNIPAQUE 05-30 Intravenou it y of 350 21:00: 20:40 s, ONCE, 1 [place] BULK-100 00 :00 dose, [place] [facility] mL) 05/30/20 at [place] injection 1600, 100 mL Routine FENTanyl PF 2020- No 50ug 50 mcg, Un matt (SUBLIMAZE 05-30 Slow IV ity o f (PF)) 21:00: 20:35 Push, [place] injection 00 :00 ONCE, 1 Medical 50 mcg dose, [facility] 05/30/20 at 1600, Routine ondansetron 2020- No 4mg 4 mg, Slow Univers (ZOFRAN 05-30 IV Push, ity of (PF)) 21:00: 20:22 ONCE, 1 [place] injection 4 00 :00 dose, [place] [facility] mg 05/30/20 at Branch 1600, [...] 1 [place] mg 00 :00 dose, [facility] 05/26/20 at Branch 2145, Routine ONDANSETRON 2020- No Take by Un matt HCL (ZOFRAN 05-27 mouth. ity o f ORAL) 01:43: 00:00 [place] 58 :00 [facility] dicyclomine 2020- No 10mg Take 10 mg Univers 10 mg 05-27 by mouth. ity of capsule 01:43: 00:00 [place] 58 :00 [facility] butorphanol 2020- No 1mg 1 mg, IV U nivers (STADOL) 05-27 Push, ity of injection 1 01:30: 00:38 ONCE, 1 [place] mg 00 :00 dose, [facility] 05/26/20 at Branch 2030, Routine NaCl 0.9% 2020- No 1000mL at 999 Uni vers (NS) bolus 05-26-15 mL/hr, ity of infusion 23:30: 01:49 1,000 mL, [place] 1,000 mL 00 :00 IV Medical Infusion, Branch ONCE, 1 dose, [facility] 05/26/20 at 1830, GIGI oxybutynin 2020-0 Yes [id number] 5mg Take 1 U nivers chloride 5 4-14 tablet by ity of mg tablet 00:00: mouth 3 [place] 00 (three) Medical times Branch daily as needed for Bladder spasms. oxybutynin 2020-0 Yes [id number] 5mg Take 1 U nivers chloride 5 4-14 tablet by ity of mg tablet 00:00: mouth 3 [place] 00 (three) Medical times Branch daily as needed for Bladder spasms. oxybutynin 2020-0 Yes [id number] 5mg Take 1 U nivers chloride 5 4-14 tablet by ity of mg tablet 00:00: mouth 3 [place] 00 (three) Medical times Branch daily as needed for Bladder spasms. oxybutynin 1-0 Yes [id number] 5mg Take 1 U nivers chloride 5 4-14 tablet by ity of mg tablet 00:00: mouth (three) Medical times Branch daily as needed for Bladder spasms. oxybutynin 1-0 Yes [id number] 5mg Take 1 U nivers chloride 5 4-14 tablet by ity of mg tablet 00:00: mouth (three) Medical times Branch daily as needed for Bladder spasms. oxybutynin 1-0 Yes [id number] 5mg Take 1 U nivers chloride 5 4-14 tablet by ity of mg tablet 00:00: mouth (three) Medical times Branch daily as needed for Bladder spasms. oxybutynin 1-0 Yes [id number] 5mg Take 1 U nivers chloride 5 4-14 tablet by ity of mg tablet 00:00: mouth (three) Medical times Branch daily as needed for Bladder spasms. oxybutynin 2020-0 Yes [id number] 5mg Take 1 U nivers chloride 5 4-14 tablet by ity of mg tablet 00:00: mouth (three) Medical times Branch daily as needed for Bladder spasms. oxybutynin 1-0 Yes [id number] 5mg Take 1 U nivers chloride 5 4-14 tablet by ity of mg tablet 00:00: mouth (three) Medical times Branch daily as needed for Bladder spasms. oxybutynin 1-0 Yes [id number] 5mg Take 1 U nivers chloride 5 4-14 tablet by ity of mg tablet 00:00: mouth (three) Medical times Branch daily as needed for Bladder spasms. oxybutynin 1-0 Yes [id number] 5mg Take 1 U nivers chloride 5 4-14 tablet by ity of mg tablet 00:00: mouth (three) Medical times Branch daily as needed for Bladder spasms. oxybutynin 1-0 Yes [id number] 5mg Take 1 U nivers chloride 5 4-14 tablet by ity of mg tablet 00:00: mouth (three) Medical times Branch daily as needed for Bladder spasms. oxybutynin 1-0 Yes [id number] 5mg Take 1 U nivers chloride 5 4-14 tablet by ity of mg tablet 00:00: mouth (three) Medical times Branch daily as needed for Bladder spasms. oxybutynin 1-0 Yes [id number] 5mg Take 1 U nivers chloride 5 4-14 tablet by ity of mg tablet 00:00: mouth (three) Medical times Branch daily as needed for Bladder spasms. oxybutynin 1-0 Yes [id number] 5mg Take 1 U nivers chloride 5 4-14 tablet by ity of mg tablet 00:00: mouth (three) Medical times Branch daily as needed for Bladder spasms. oxybutynin 1-0 Yes [id number] 5mg Take 1 U nivers chloride 5 4-14 tablet by ity of mg tablet 00:00: mouth (three) Medical times Branch daily as needed for Bladder spasms. oxybutynin 1-0 Yes [id number] 5mg Take 1 U nivers chloride 5 4-14 tablet by ity of mg tablet 00:00: mouth (three) Medical times Branch daily as needed for Bladder spasms. oxybutynin 1-0 Yes [id number] 5mg Take 1 U nivers chloride 5 4-14 tablet by ity of mg tablet 00:00: mouth (three) Medical times Branch daily as needed for Bladder spasms. oxybutynin 1-0 Yes [id number] 5mg Take 1 U nivers chloride 5 4-14 tablet by ity of mg tablet 00:00: mouth (three) Medical times Branch daily as needed for Bladder spasms. oxybutynin 1-0 Yes [id number] 5mg Take 1 U nivers chloride 5 4-14 tablet by ity of mg tablet 00:00: mouth (three) Medical times Branch daily as needed for Bladder spasms. oxybutynin 1-0 Yes [id number] 5mg Take 1 U nivers chloride 5 4-14 tablet by ity of mg tablet 00:00: mouth (three) Medical times Branch daily as needed for Bladder spasms. oxybutynin 1-0 Yes [id number] 5mg Take 1 U nivers chloride 5 4-14 tablet by ity of mg tablet 00:00: mouth (three) Medical times Branch daily as needed for Bladder spasms. oxybutynin 1-0 Yes [id number] 5mg Take 1 U nivers chloride 5 4-14 tablet by ity of mg tablet 00:00: mouth 3 (three) Medical times Branch daily as needed for Bladder spasms. oxybutynin 2020-0 Yes [id number] 5mg Take 1 U nivers chloride 5 4-14 tablet by ity of mg tablet 00:00: mouth (three) Medical times Branch daily as needed for Bladder spasms. oxybutynin 2020-0 Yes [id number] 5mg Take 1 U nivers chloride 5 4-14 tablet by ity of mg tablet 00:00: mouth (three) Medical times Branch daily as needed for Bladder spasms. oxybutynin 1-0 Yes [id number] 5mg Take 1 U nivers chloride 5 4-14 tablet by ity of mg tablet 00:00: mouth (three) Medical times Branch daily as needed for Bladder spasms. phenazopyri 2020-0 Yes [id number] 200mg Take 1 Univers dine 200 mg 4-14 tablet by ity of tablet 00:00: mouth (three) Medical times Branch daily. proMETHazin 2020-0 Yes [id number] 25mg Take 1 Univers e 25 mg 4-14 tablet by ity of tablet 00:00: mouth 00 every 6 Medical (six) Branch hours as needed for Nausea and Vomiting (N/V). oxybutynin 2020-0 2020- No [id number] 5mg Take 1 Univers chloride 5 4-14 10-24 tablet by ity of mg tablet 00:00: 00:00 mouth 3 [place] :[place] (three) Medical times Branch daily as needed for Bladder spasms. proMETHazin 2020-0 2020- No [id number] 25mg Take 1 Univers e 25 mg 4-14 04-21 tablet by ity of tablet 00:00: 00:00 mouth [place] 00 :00 every 6 Medical (six) Branch hours as needed for Nausea and Vomiting (N/V). phenazopyri 2020-0 2020- No [id number] 200mg Take 1 Univers dine 200 mg 4-14 04-20 tablet by it y of tablet 00:00: 00:00 mouth 3 [place] 00 :00 (three) Medical times Branch daily. FENTanyl PF 2020- No 50ug 50 mcg, Un matt (SUBLIMAZE 05-13 Slow IV ity o f (PF)) 21:30: 20:45 Push, [place] injection 00 :00 ONCE, 1 Medical 50 mcg dose, [facility] Branch 05/13/20 at 1630, Routine cefTRIAXone 2020- No 1000mg 1,000 mg, Univers (ROCEPHIN) 05-13 IV ity of 1,000 mg in 21:30: 21:22 Piggyback, [place] NaCl 0.9% 00 :00 ONCE, 1 Medical (NS) 50 mL dose, [facility] MINI-BAG 05/13/20 at 1630, 50 mL
[...] IV ity of (REGLAN) 19:15: 19:04 Push, [place] injection 00 :00 ONCE, 1 Medical 10 mg dose, [facility] Branch 05/13/20 at 1415, GIGI FENTanyl PF 2020- No 50ug 50 mcg, Un matt (SUBLIMAZE 05-13 Slow IV ity o f (PF)) 19:00: 18:57 Push, [place] injection 00 :00 ONCE, 1 Medical 50 mcg dose, [facility] Branch 05/13/20 at 1400, Routine morpHINE 2020- No 4mg 4 mg, Slow Un matt injection 4 05-13 IV Push, ity of mg 17:45: 16:56 ONCE, 1 [place] 00 :00 dose, [facility] 05/13/20 at Branch 1245, STAT ondansetron 2020- No 4mg 4 mg, Slow Univers (ZOFRAN 05-13 IV Push, ity of (PF)) 17:45: 16:55 ONCE, 1 [place] injection 4 00 :00 dose, [facility] ical mg 05/13/20 at Branch 1245, [facility] iohexol 2020- No [id number] 120mL 120 mL, Univers (OMNIPAQUE 05-13 Intravenou it y of 350 17:30: 17:22 s, ONCE, 1 [place] BULK-150 00 :00 dose, [facility] mL) 05/13/20 at Branch injection 1230, 120 mL Routine NaCl 0.9% 2020- No 1000mL at 999 Uni vers (NS) bolus 05-13 mL/hr, ity of infusion 16:45: 20:00 1,000 mL, [place] 1,000 mL 00 :00 IV Medical Infusion, Branch ONCE, 1 dose, [facility] 05/13/20 at 1145, [facility] proMETHazin Yes [id number] 25mg Take 1 Univers e 25 mg 4-01 tablet by ity of tablet 00:00: mouth [place] 00 every 6 Medical (six) Branch hours as needed for Nausea and Vomiting (N/V). proMETHazin Yes [id number] 25mg Take 1 Univers e 25 mg 4-01 tablet by ity of tablet 00:00: mouth [place] 00 every 6 Medical (six) Branch hours as needed for Nausea and Vomiting (N/V). proMETHazin 2020- No [id number] 25mg Take 1 Univers e 25 mg 05-13-14 tablet by ity of tablet 00:00: 00:00 mouth [place] 00 :00 every 6 Medical (six) Branch hours as needed for Nausea and Vomiting (N/V). cefpodoxime 2020- No [id number] 100mg Take 1 Univers 100 mg 05-13-09 [...] 15:51: [place] ORAL) Medical Branch gabapentin Yes [id number] 400mg Take 1 Univers 400 mg 2-09 capsule by ity of capsule 00:00: mouth 3 (three) Medical times Branch daily. gabapentin 2020-0 Yes [id number] 400mg Take 1 Univers 400 mg 2-09 capsule by ity of capsule 00:00: mouth 3 (three) Medical times Branch daily. gabapentin 2020-0 Yes [id number] 400mg Take 1 Univers 400 mg 2-09 capsule by ity of capsule 00:00: mouth 3 00 (three) Medical times Branch daily. gabapentin 2020-0 Yes [id number] 400mg Take 1 Univers 400 mg 2-09 capsule by ity of capsule 00:00: mouth 3 [place] 00 (three) Medical times Branch daily. gabapentin 2021-0 Yes [id number] 400mg Take 1 Univers 400 mg 2-09 capsule by ity of capsule 00:00: mouth 3 [place] (three) Medical times Branch daily. gabapentin 2021-0 Yes [id number] 400mg Take 1 Univers 400 mg 2-09 capsule by ity of capsule 00:00: mouth 3 [place] 00 (three) Medical times Branch daily. gabapentin 2021-0 Yes [id number] 400mg Take 1 Univers 400 mg 2-09 capsule by ity of capsule 00:00: mouth 3 [place] 00 (three) Medical times Branch daily. gabapentin 2021-0 Yes [id number] 400mg Take 1 Univers 400 mg 2-09 capsule by ity of capsule 00:00: mouth 3 [place] (three) Medical times Branch daily. gabapentin 2021-0 Yes [id number] 400mg Take 1 Univers 400 mg 2-09 capsule by ity of capsule 00:00: mouth 3 [place] (three) Medical times Branch daily. gabapentin 2021-0 Yes [id number] 400mg Take 1 Univers 400 mg 2-09 capsule by ity of capsule 00:00: mouth 3 [place] (three) Medical times Branch daily. gabapentin 2021-0 2021- No [id number] 400mg Take 1 Univers 400 mg 2-09 05-17 capsule by ity of capsule 00:00: 00:00 mouth 3 [place] 00 :00 (three) Medical times Branch daily. gabapentin 1-0 Yes 300mg Take 1 Univ ers 300 mg 2-04 capsule by ity of capsule 00:00: mouth 3 [place] (three) Medical times Branch daily. gabapentin 2021-0 2021- No 300mg Take 1 Uni vers 300 mg 2-04 02-09 capsule by ity of capsule 00:00: 00:00 mouth 3 [place] 00 :00 (three) Medical times Branch daily. gabapentin 2021-0 2021- No 300mg Take 1 Uni vers 300 mg 2-04 02-09 capsule by ity of capsule 00:00: 00:00 mouth 3 [place] 00 :00 (three) Medical times Branch daily. FENTanyl PF 2019-02 2020- No 50ug 50 mcg, Un matt (SUBLIMAZE 0- 10- Slow IV ity o f (PF)) 20:00: 07:59 Push, [place] injection 00 :00 ONCE, 1 Medical 50 mcg dose, [facility] Branch 12/08/19 at 1500, STAT proMETHazin 2019-02 [...] IV ity of (REGLAN) 17:45: 17:07 Push, [place] injection 00 :00 ONCE, 1 Medical 10 mg dose, [facility] 12/08/19 at 1245, GIGI FENTanyl PF 2019-02 2020- No 50ug 50 mcg, Un matt (SUBLIMAZE 012-07 Slow IV ity o f (PF)) 17:45: 17:07 Push, [place] injection 00 :00 ONCE, 1 Medical 50 mcg dose, [facility] 12/08/19 at 1245, STAT GABAPENTIN 2019-02 Yes TAKE 1 Unive rs 300 mg 0-26 CAPSULE BY ity of capsule 00:00: MOUTH [place] 00 THREE Medical TIMES A Branch DAY GABAPENTIN 2019-02 Yes TAKE 1 Unive rs 300 mg 0-26 CAPSULE BY ity of capsule 00:00: MOUTH [place] 00 THREE Medical TIMES A Branch DAY proMETHazin 2019-02 Yes [id number] 25mg Take 1 Univers e 25 mg 0-26 tablet by ity of tablet 00:00: mouth [place] 00 every 6 Medical (six) Branch hours as needed for Nausea and Vomiting (N/V). GABAPENTIN 2019-02 Yes TAKE 1 Unive rs 300 mg 0-26 CAPSULE BY ity of capsule 00:00: MOUTH [place] 00 THREE Medical TIMES A Branch DAY proMETHazin 2019-02 Yes [id number] 25mg Take 1 Univers e 25 mg 0-26 tablet by ity of tablet 00:00: mouth [place] 00 every 6 Medical (six) Branch hours as needed for Nausea and Vomiting (N/V). GABAPENTIN 2019-02 Yes TAKE 1 Unive rs 300 mg 0-26 CAPSULE BY ity of capsule 00:00: MOUTH [place] 00 THREE Medical TIMES A Branch DAY proMETHazin 2019- Yes [id number] 25mg Take 1 Univers e 25 mg 0-26 tablet by ity of tablet 00:00: mouth [place] 00 every 6 Medical (six) Branch hours as needed for Nausea and Vomiting (N/V). proMETHazin 2019- Yes [id number] 25mg Take 1 Univers e 25 mg 0-26 tablet by ity of tablet 00:00: mouth [place] 00 every 6 Medical (six) Branch hours as needed for Nausea and Vomiting (N/V). proMETHazin 2019-02 Yes [id number] 25mg Take 1 Univers e 25 mg 0-26 tablet by ity of tablet 00:00: mouth [place] 00 every 6 Medical (six) Branch hours as needed for Nausea and Vomiting (N/V). proMETHazin 2019-02 Yes [id number] 25mg Take 1 Univers e 25 mg 0-26 tablet by ity of tablet 00:00: mouth [place] 00 every 6 Medical (six) Branch hours as needed for Nausea and Vomiting (N/V). proMETHazin 2019-02 Yes [id number] 25mg Take 1 Univers e 25 mg 0-26 tablet by ity of tablet 00:00: mouth [place] 00 every 6 Medical (six) Branch hours as needed for Nausea and Vomiting (N/V). proMETHazin 2019- Yes [id number] 25mg Take 1 Univers e 25 mg 0-26 tablet by ity of tablet 00:00: mouth [place] 00 every 6 Medical (six) Branch hours as needed for Nausea and Vomiting (N/V). proMETHazin 2019- Yes [id number] 25mg Take 1 Univers e 25 mg 0-26 tablet by ity of tablet 00:00: mouth [place] 00 every 6 Medical (six) Branch hours as needed for Nausea and Vomiting (N/V). proMETHazin 2019- Yes [id number] 25mg Take 1 Univers e 25 mg 0-26 tablet by ity of tablet 00:00: mouth [place] 00 every 6 Medical (six) Branch hours as needed for Nausea and Vomiting (N/V). proMETHazin 2019-2020- No [id number] 25mg Take 1 Univers e 25 mg [...] s mg tablet 0-23 ity of 00:00: [place] Medical Branch busPIRone 5 2020-1 Yes Univer s mg tablet 0-23 ity of 00:00: [place] Medical Branch busPIRone 5 2020-1 Yes Univer s mg tablet 0-23 ity of 00:00: [place] [facility] Branch busPIRone 5 2020-1 Yes Univer s mg tablet 0-23 ity of 00:00: [place] Medical Branch busPIRone 5 2019-1 Yes Univer s mg tablet 0-23 ity of 00:00: [place] Medical Branch busPIRone 5 2020-1 Yes Univer s mg tablet 0-23 ity of 00:00: [place] [facility] Branch busPIRone 5 2020-1 Yes Univer s mg tablet 0-23 ity of 00:00: [place] Medical Branch busPIRone 5 2019-2020- No Unive rs mg tablet 0-23 04-18 ity of 00:00: 00:00 [place] 00 : Medical Branch losartan 50 2020-0 Yes 50mg Take 50 mg Univers mg tablet 9-21 by mouth ity of 00:00: daily. [place] [facility] Branch losartan 50 2020-0 Yes 50mg Take 50 mg Univers mg tablet 9-21 by mouth ity of 00:00: daily. [place] [facility] losartan 50 2020-0 Yes 50mg Take 50 mg Univers mg tablet 9-21 by mouth ity of 00:00: daily. [place] [facility] losartan 50 2020-0 Yes 50mg Take 50 mg Univers mg tablet 9-21 by mouth ity of 00:00: daily. [place] [facility] losartan 50 2020-0 Yes 50mg Take 50 mg Univers mg tablet 9-21 by mouth ity of 00:00: daily. [place] [facility] losartan 50 2020-0 Yes 50mg Take 50 mg Univers mg tablet 9-21 by mouth ity of 00:00: daily. [place] [facility] losartan 50 2020-0 Yes 50mg Take 50 mg Univers mg tablet 9-21 by mouth ity of 00:00: daily. [place] [address] Medical Branch losartan 50 2020-0 Yes 50mg Take 50 mg Univers mg tablet 9-21 by mouth ity of 00:00: daily. [place] [address] Medical Branch losartan 50 2020-0 Yes 50mg Take 50 mg Univers mg tablet 9-21 by mouth ity of 00:00: daily. [place] [facility] losartan 50 2020-0 Yes 50mg Take 50 mg Univers mg tablet 9-21 by mouth ity of 00:00: daily. [place] [facility] losartan 50 2020-0 Yes 50mg Take 50 mg Univers mg tablet 9-21 by mouth ity of 00:00: daily. [place] [facility] losartan 50 2020-0 Yes 50mg Take 50 mg Univers mg tablet 9-21 by mouth ity of 00:00: daily. [place] [facility] losartan 50 2020-0 Yes 50mg Take 50 mg Univers mg tablet 9-21 by mouth ity of 00:00: daily. [place] [facility] losartan 50 2020-0 Yes 50mg Take 50 mg Univers mg tablet 9-21 by mouth ity of 00:00: daily. [place] [facility] losartan 50 2020-0 Yes 50mg Take 50 mg Univers mg tablet 9-21 by mouth ity of 00:00: daily. [place] [facility] Branch losartan 50 2020-0 Yes 50mg Take 50 mg Univers mg tablet 9-21 by mouth ity of 00:00: daily. [place] [facility] Branch losartan 50 2020-0 Yes 50mg Take 50 mg Univers mg tablet 9-21 by mouth ity of 00:00: daily. [place] [facility] Branch losartan 50 2020-0 Yes 50mg Take 50 mg Univers mg tablet 9-21 by mouth ity of 00:00: daily. [place] [facility] Branch losartan 50 2020-0 Yes 50mg Take 50 mg Univers mg tablet 9-21 by mouth ity of 00:00: daily. [place] [facility] Branch losartan 50 2020-0 Yes 50mg Take 50 mg Univers mg tablet 9-21 by mouth ity of 00:00: daily. [place] [facility] losartan 50 2020-0 Yes 50mg Take 50 mg Univers mg tablet 9-21 by mouth ity of 00:00: daily. [place] [facility] losartan 50 2020-0 Yes 50mg Take 50 mg Univers mg tablet 9-21 by mouth ity of 00:00: daily. [place] [facility] Branch losartan 50 2020-0 Yes 50mg Take 50 mg Univers mg tablet 9-21 by mouth ity of 00:00: daily. [place] [facility] Branch losartan 50 2020-0 Yes 50mg Take 50 mg Univers mg tablet 9-21 by mouth ity of 00:00: daily. [place] [facility] Branch losartan 50 2020-0 Yes 50mg Take 50 mg Univers mg tablet 9-21 by mouth ity of 00:00: daily. Medical Branch losartan 50 2020-0 Yes 50mg Take 50 mg Univers mg tablet 9-21 by mouth ity of 00:00: daily. [place] [facility] losartan 50 2020-0 Yes 50mg Take 50 mg Univers mg tablet 9-21 by mouth ity of 00:00: daily. [place] [facility] losartan 50 2020-0 Yes 50mg Take 50 mg Univers mg tablet 9-21 by mouth ity of 00:00: daily. [place] [facility] losartan 50 2020-0 Yes 50mg Take 50 mg Univers mg tablet 9-21 by mouth ity of 00:00: daily. [place] [facility] losartan 50 2020-0 Yes 50mg Take 50 mg Univers mg tablet 9-21 by mouth ity of 00:00: daily. [place] [facility] losartan 50 2020-0 Yes 50mg Take 50 mg Univers mg tablet 9-21 by mouth ity of 00:00: daily. [place] [facility] losartan 50 2020-0 Yes 50mg Take 50 mg Univers mg tablet 9-21 by mouth ity of 00:00: daily. [place] [facility] losartan 50 2020-0 Yes 50mg Take 50 mg Univers mg tablet 9-21 by mouth ity of 00:00: daily. [place] [facility] losartan 50 2020-0 Yes 50mg Take 50 mg Univers mg tablet 9-21 by mouth ity of 00:00: daily. [place] [facility] losartan 50 2020-0 Yes 50mg Take 50 mg Univers mg tablet 9-21 by mouth ity of 00:00: daily. [place] [facility] losartan 50 2020-0 Yes 50mg Take 50 mg Univers mg tablet 9-21 by mouth ity of 00:00: daily. [place] [facility] losartan 50 2020-0 Yes 50mg Take 50 mg Univers mg tablet 9-21 by mouth ity of 00:00: daily. [place] [facility] losartan 50 2020-0 Yes 50mg Take 50 mg Univers mg tablet 9-21 by mouth ity of 00:00: daily. [place] [facility] losartan 50 2020-0 2020- No [...] CAPSULE BY ity of capsule 00:00: MOUTH [place] 00 THREE Medical TIMES A Branch DAY GABAPENTIN 2020-0 Yes TAKE 1 Unive rs 300 mg 8-12 CAPSULE BY ity of capsule 00:00: MOUTH [place] 00 THREE Medical TIMES A Branch DAY GABAPENTIN 2020-0 Yes TAKE 1 Unive rs 300 mg 8-12 CAPSULE BY ity of capsule 00:00: MOUTH [place] 00 THREE Medical TIMES A Branch DAY GABAPENTIN 2020-0 Yes TAKE 1 Unive rs 300 mg 8-12 CAPSULE BY ity of capsule 00:00: MOUTH [place] 00 THREE Medical TIMES A Branch DAY GABAPENTIN 2020-0 Yes TAKE 1 [facility] 300 mg 8-12 CAPSULE BY [facility] capsule 00:00: MOUTH [place] 00 THREE Medical TIMES A Branch DAY GABAPENTIN 2020-0 Yes TAKE 1 [facility] 300 mg 8-12 CAPSULE BY [facility] capsule 00:00: MOUTH [place] 00 THREE Medical TIMES A Branch DAY [...] Medical times Branch daily. divalproex 2020-0 Yes [id number] 250mg Take 1 [facility] 250 mg EC 3-05 tablet by [facility] o f tablet 00:00: mouth [place] 00 every 12 Medical (twelve) Branch hours. divalproex 2020-0 Yes [id number] 250mg Take 1 [facility] 250 mg EC 3-05 tablet by [facility] o f tablet 00:00: mouth [place] 00 every 12 Medical (twelve) Branch hours. divalproex 2020-0 Yes [id number] 250mg Take 1 [facility] 250 mg EC 3-05 tablet by [facility] o f tablet 00:00: mouth [place] 00 every 12 Medical (twelve) Branch hours. divalproex 2020-0 Yes [id number] 250mg Take 1 [facility] 250 mg EC 3-05 tablet by [facility] o f tablet 00:00: mouth [place] 00 every 12 Medical (twelve) Branch hours. divalproex 2020-0 Yes [id number] 250mg Take 1 [facility] 250 mg EC 3-05 tablet by [facility] o f tablet 00:00: mouth [place] 00 every 12 Medical (twelve) Branch hours. divalproex 2020-0 Yes [id number] 250mg Take 1 [facility] 250 mg EC 2-28 tablet by [facility]y o f tablet 00:00: mouth [place] 00 every 12 Medical (twelve) Branch hours. divalproex 2020-0 2020- No [id number] 250mg Take 1 [facility] 250 mg EC 2-28 03-05 tablet by [facility] tablet 00:00: 00:00 mouth [place] 00 :00 every 12 Medical (twelve) Branch hours. divalproex 2020-0 2020- No [id number] 250mg Take 1 [facility] 250 mg EC 2-28 03-05 tablet by [facility] of tablet 00:00: 00:00 mouth [place] 00 :00 every 12 Medical (twelve) Branch hours. divalproex 2020-0 2020- No [id number] 250mg Take 1 [facility] 250 mg EC 2-28 03-05 tablet by [facility] of tablet 00:00: 00:00 mouth [place] 00 :00 every 12 Medical (twelve) Branch hours. divalproex 2020-0 2020- No [id number] 250mg Take 1 [facility] 250 mg EC [...] times Medical daily. Branch divalproex 2020-0 Yes [id number] 125mg Take 1 [facility] 125 mg EC 2-14 tablet by ity o f tablet 00:00: mouth [place] 00 every 12 Medical (twelve) Branch hours. divalproex 2020-0 Yes [id number] 125mg Take 1 [facility] 125 mg EC 2-14 tablet by [facility]y o f tablet 00:00: mouth [place] 00 every 12 Medical (twelve) Branch hours. divalproex 2020-0 Yes [id number] 125mg Take 1 [facility] 125 mg EC 2-14 tablet by [facility] o f tablet 00:00: mouth [place] 00 every 12 Medical (twelve) Branch hours. divalproex 2020-0 Yes [id number] 125mg Take 1 [facility] 125 mg EC 2-14 tablet by [facility]y o f tablet 00:00: mouth [place] 00 every 12 Medical (twelve) Branch hours. divalproex 2020-0 2020- No [id number] 125mg Take 1 [facility] 125 mg EC [...] 2-09 by mouth. it[facility] of capsule 15:24: [address] dicyclomine 2018-02 Yes 10mg Take 10 mg [facility] 10 mg 2-09 by mouth. [facility] of capsule 15:24: [address] dicyclomine 2018-02 Yes 10mg Take 10 mg [facility] 10 mg 2-09 by mouth. [facility] of capsule 15:24: [address] dicyclomine 2019- Yes 10mg Take 10 mg [facility] 10 mg 2-09 by mouth. [facility] of capsule 15:24: [address] dicyclomine 2018-02 Yes 10mg Take 10 mg [facility] 10 mg 2-09 by mouth. [facility] of capsule 15:24: [address] dicyclomine 2019- Yes 10mg Take 10 mg [facility] 10 mg 2-09 by mouth. [facility] of capsule 15:24: [address] dicyclomine 2018-02 Yes 10mg Take 10 mg [facility] 10 mg 2-09 by mouth. [facility] of capsule 15:24: [address] dicyclomine 2018-02 Yes 10mg Take 10 mg [facility] 10 mg 2-09 by mouth. [facility] of capsule 15:24: [address] dicyclomine 2018-02 Yes 10mg Take 10 mg [facility] 10 mg 2-09 by mouth. [facility] of capsule 15:24: [address] dicyclomine 2018-02 Yes 10mg Take 10 mg [facility] 10 mg 2-09 by mouth. [facility]y of capsule 15:24: [address] dicyclomine 2018-02 Yes 10mg Take 10 mg [facility] 10 mg 2-09 by mouth. [facility]y of capsule 15:24: [address] dicyclomine 2018-02 Yes 10mg Take 10 mg [facility] 10 mg 2-09 by mouth. [facility]y of capsule 15:24: [address] dicyclomine 2018-02 Yes 10mg Take 10 mg [facility] 10 mg 2-09 by mouth. [facility]y of capsule 15:24: [address] dicyclomine 2018-02 Yes 10mg Take 10 mg [facility] 10 mg 2-09 by mouth. [facility]y of capsule 15:24: [address] dicyclomine 2018-02 Yes 10mg Take 10 mg [facility] 10 mg 2-09 by mouth. ity of capsule 15:24: [address] dicyclomine 2018-02 Yes 10mg Take 10 mg [facility] 10 mg 2-09 by mouth. [facility]y of capsule 15:24: [address] dicyclomine 2018-02 Yes 10mg Take 10 mg [facility] 10 mg 2-09 by mouth. ity of capsule 15:24: [address] dicyclomine 2018-02 Yes 10mg Take 10 mg [facility] 10 mg 2-09 by mouth. [facility]y of capsule 15:24: [address] dicyclomine 2018-02 Yes 10mg Take 10 mg [facility] 10 mg 2-09 by mouth. [facility]y of capsule 15:24: [address] dicyclomine 2018-02 Yes 10mg Take 10 mg [facility] 10 mg 2-09 by mouth. [facility]y of capsule 15:24: [address] dicyclomine 2018-02 Yes 10mg Take 10 mg [facility] 10 mg 2-09 by mouth. [facility]y of capsule 15:24: [address] dicyclomine 2018-02 Yes 10mg Take 10 mg [facility] 10 mg 2-09 by mouth. ity of capsule 15:24: [address] dicyclomine 2018-02 Yes 10mg Take 10 mg [facility] 10 mg 2-09 by mouth. ity of capsule 15:24: [address] dicyclomine 2018-02 Yes 10mg Take 10 mg [facility] 10 mg 2-09 by mouth. ity of capsule 15:24: [address] dicyclomine 2018-02 Yes 10mg Take 10 mg [facility] 10 mg 2-09 by mouth. [facility]y of capsule 15:24: [address] dicyclomine 2018-02 Yes 10mg Take 10 mg [facility] 10 mg 2-09 by mouth. ity of capsule 15:24: [address] dicyclomine 2018-02 Yes 10mg Take 10 mg [facility] 10 mg 2-09 by mouth. ity of capsule 15:24: [address] dicyclomine 2018-02 Yes 10mg Take 10 mg [facility] 10 mg 2-09 by mouth. ity of capsule 15:24: [address] dicyclomine 2018-02 Yes 10mg Take 10 mg [facility] 10 mg 2-09 by mouth. ity of capsule 15:24: [address] dicyclomine 2018-02 Yes 10mg Take 10 mg [facility] 10 mg 2-09 by mouth. ity of capsule 15:24: [address] dicyclomine 2018-02 Yes 10mg Take 10 mg [facility] 10 mg 2-09 by mouth. ity of capsule 15:24: [address] dicyclomine 2018-02 Yes 10mg Take 10 mg [facility] 10 mg 2-09 by mouth. ity of capsule 15:24: [address] ONDANSETRON 2018-02 Yes Take by [facility] HCL (ZOFRAN 2-09 mouth. ity of ORAL) 15:22: [address] ONDANSETRON 2018-02 Yes Take by [facility] HCL (ZOFRAN 2-09 mouth. ity of ORAL) 15:22: [address] ONDANSETRON 2018-02 Yes Take by [facility] HCL (ZOFRAN 2-09 mouth. ity of ORAL) 15:22: [address] ONDANSETRON 2018- Yes Take by [facility] HCL (ZOFRAN 2-09 mouth. ity of ORAL) 15:22: [address] ONDANSETRON 2018- Yes Take by [facility] HCL (ZOFRAN 2-09 mouth. ity of ORAL) 15:22: [address] ONDANSETRON 2018-02 Yes Take by [facility] HCL (ZOFRAN 2-09 mouth. ity of ORAL) 15:22: [address] ONDANSETRON 2018-02 Yes Take by [facility] HCL (ZOFRAN 2-09 mouth. ity of ORAL) 15:22: [address] 2018-02 Yes Take by [facility] HCL (ZOFRAN 2-09 mouth. ity of ORAL) 15:22: [address] 2018-02 Yes Take by [facility] HCL (ZOFRAN 2-09 mouth. ity of ORAL) 15:22: [address] 2018-02 Yes Take by [facility] HCL (ZOFRAN 2-09 mouth. ity of ORAL) 15:22: [address] 2018-02 Yes Take by [facility] HCL (ZOFRAN 2-09 mouth. ity of ORAL) 15:22: [address] 2018-02 Yes Take by [facility] HCL (ZOFRAN 2-09 mouth. ity of ORAL) 15:22: [address] ONDANSETRON 2018-02 Yes Take by [facility] HCL (ZOFRAN 2-09 mouth. ity of ORAL) 15:22: [address] 2018-02 Yes Take by [facility] HCL (ZOFRAN 2-09 mouth. ity of ORAL) 15:22: [address] ONDANSETRON 2018-02 Yes Take by [facility] HCL (ZOFRAN 2-09 mouth. ity of ORAL) 15:22: [address] ONDANSETRON 2018-02 Yes Take by [facility] HCL (ZOFRAN 2-09 mouth. ity of ORAL) 15:22: [address] 2018-02 Yes Take by [facility] HCL (ZOFRAN 2-09 mouth. ity of ORAL) 15:22: [address] 2018-02 Yes Take by [facility] HCL (ZOFRAN 2-09 mouth. ity of ORAL) 15:22: [address] ONDANSETRON 2018-02 Yes Take by [facility] HCL (ZOFRAN 2-09 mouth. ity of ORAL) 15:22: [address] ONDANSETRON 2018-02 Yes Take by [facility] HCL (ZOFRAN 2-09 mouth. ity of ORAL) 15:22: [address] ONDANSETRON 2018-02 Yes Take by [facility] HCL (ZOFRAN 2-09 mouth. ity of ORAL) 15:22: [address] 2018-02 Yes Take by [facility] HCL (ZOFRAN 2-09 mouth. ity of ORAL) 15:22: [address] 2018-02 Yes Take by [facility] HCL (ZOFRAN 2-09 mouth. ity of ORAL) 15:22: [address] 2018-02 Yes Take by [facility] HCL (ZOFRAN 2-09 mouth. ity of ORAL) 15:22: [address] 2018-02 Yes Take by [facility] HCL (ZOFRAN 2-09 mouth. ity of ORAL) 15:22: [address] 2018-02 Yes Take by [facility] HCL (ZOFRAN 2-09 mouth. ity of ORAL) 15:22: [address] 2018-02 Yes Take by [facility] HCL (ZOFRAN 2-09 mouth. ity of ORAL) 15:22: [address] ONDANSETRON 2018-02 Yes Take by [facility] HCL (ZOFRAN 2-09 mouth. ity of ORAL) 15:22: [address] 2018-02 Yes Take by [facility] HCL (ZOFRAN 2-09 mouth. ity of ORAL) 15:22: [address] 2018-02 Yes Take by [facility] HCL (ZOFRAN 2-09 mouth. ity of ORAL) 15:22: [address] 2018-02 Yes Take by [facility] HCL (ZOFRAN 2-09 mouth. ity of ORAL) 15:22: [address] 2018-02 Yes Take by [facility] vers [...] 50 mg 2-02 ity of tablet 00:00: [place] [facility] azaTHIOprin 2019-1 Yes Univer s e 50 mg 2-02 ity of tablet 00:00: [place] [facility] azaTHIOprin 2019-1 Yes Univer s e 50 mg 2-02 ity of tablet 00:00: [place] [facility] azaTHIOprin 2019-1 Yes Univer s e 50 mg 2-02 ity of tablet 00:00: [place] [facility] azaTHIOprin 2019-1 Yes Univer s e 50 mg 2-02 ity of tablet 00:00: [place] [address] [facility] Branch azaTHIOprin 2019-1 Yes Univer s e 50 mg 2-02 ity of tablet 00:00: [place] [address] [facility] Branch azaTHIOprin 2019-1 Yes Univer s e 50 mg 2-02 ity of tablet 00:00: [place] [address] Medical Branch azaTHIOprin 2019-1 Yes Univer s e 50 mg 2-02 ity of tablet 00:00: [place] [address] [facility] Branch azaTHIOprin 2019-1 Yes Univer s e 50 mg 2-02 ity of tablet 00:00: [place] [address] [facility] Branch azaTHIOprin 2019-1 Yes Univer s e 50 mg 2-02 ity of tablet 00:00: [place] [address] [facility] Branch azaTHIOprin 2019-1 Yes Univer s e 50 mg 2-02 ity of tablet 00:00: [place] [address] Medical Branch azaTHIOprin 2019-1 Yes Univer s e 50 mg 2-02 ity of tablet 00:00: [place] [address] [facility] Branch azaTHIOprin 2019-1 Yes Univer s e 50 mg 2-02 ity of tablet 00:00: [place] [address] [facility] Branch azaTHIOprin 2019-1 Yes Univer s e 50 mg 2-02 ity of tablet 00:00: [place] [address] [facility] Branch azaTHIOprin 2019-1 Yes Univer s e 50 mg 2-02 ity of tablet 00:00: [place] [address] [facility] Branch azaTHIOprin 2019-1 Yes Univer s e 50 mg 2-02 ity of tablet 00:00: [place] [address] [facility] Branch azaTHIOprin 2019-1 Yes Univer s e 50 mg 2-02 ity of tablet 00:00: [place] [address] [facility] Branch azaTHIOprin 2019-1 Yes Univer s e 50 mg 2-02 ity of tablet 00:00: [place] [address] Medical Branch azaTHIOprin 2019-1 Yes Univer s e 50 mg 2-02 ity of tablet 00:00: [place] [address] [facility] Branch azaTHIOprin 2019- Yes Univer s e 50 mg 2-02 ity of tablet 00:00: [place] [facility] azaTHIOprin 2019-1 Yes Univer s e 50 mg 2-02 ity of tablet 00:00: [place] [facility] azaTHIOprin 2019-1 Yes Univer s e 50 mg 2-02 ity of tablet 00:00: [place] [facility] azaTHIOprin 2019-1 Yes Univer s e 50 mg 2-02 ity of tablet 00:00: [place] [facility] azaTHIOprin 2019-1 Yes Univer s e 50 mg 2-02 ity of tablet 00:00: [place] [facility] azaTHIOprin 2019-1 Yes Univer s e 50 mg 2-02 ity of tablet 00:00: [place] [facility] azaTHIOprin 2019- Yes Univer s e 50 mg 2-02 ity of tablet 00:00: [place] [facility] azaTHIOprin 2019- Yes Univer s e 50 mg 2-02 ity of tablet 00:00: [place] [facility] azaTHIOprin 2019-1 Yes Univer s e 50 mg 2-02 ity of tablet 00:00: [place] [facility] azaTHIOprin 2019- Yes Univer s e 50 mg 2-02 ity of tablet 00:00: [place] [address] [facility] Branch azaTHIOprin 2019-1 Yes Univer s e 50 mg 2-02 ity of tablet 00:00: [place] [address] [facility] Branch azaTHIOprin 2019-1 Yes Univer s e 50 mg 2-02 ity of tablet 00:00: [place] [address] [facility] Branch azaTHIOprin 2019-1 2021- No 150mg Take 150 [facility] e 50 mg 2-02 10-24 mg by ity of tablet 00:00: 00:00 mouth [place] 00 :00 daily. Medical Branch ibuprofen 2018-02 Yes [id number] 600mg Take 1 [facility] 600 mg 1-13 tablet by [facility]y of tablet 00:00: mouth [place] 00 every 6 Medical (six) Branch hours as needed for Pain (scale 4-6). ibuprofen 2018- Yes [id number] 600mg Take 1 [facility] 600 mg 1-13 tablet by ity of tablet 00:00: mouth [place] 00 every 6 Medical (six) Branch hours as needed for Pain (scale 4-6). ibuprofen 2018-02 Yes [id number] 600mg Take 1 [facility] 600 mg 1-13 tablet by ity of tablet 00:00: mouth [place] 00 every 6 Medical (six) Branch hours as needed for Pain (scale 4-6). ibuprofen 2018-02 Yes [id number] 600mg Take 1 [facility] 600 mg 1-13 tablet by ity of tablet 00:00: mouth [place] 00 every 6 Medical (six) Branch hours as needed for Pain (scale 4-6). ibuprofen 2018-02 Yes [id number] 600mg Take 1 [facility] 600 mg 1-13 tablet by ity of tablet 00:00: mouth [place] 00 every 6 Medical (six) Branch hours as needed for Pain (scale 4-6). ibuprofen 2018-02 Yes [id number] 600mg Take 1 [facility] 600 mg 1-13 tablet by ity of tablet 00:00: mouth [place] 00 every 6 Medical (six) Branch hours as needed for Pain (scale 4-6). ibuprofen 2018-02 Yes [id number] 600mg Take 1 [facility] 600 mg 1-13 tablet by ity of tablet 00:00: mouth [place] 00 every 6 Medical (six) Branch hours as needed for Pain (scale 4-6). ibuprofen 2018-02 Yes [id number] 600mg Take 1 [facility] 600 mg 1-13 tablet by ity of tablet 00:00: mouth [place] 00 every 6 Medical (six) Branch hours as needed for Pain (scale 4-6). ibuprofen 2018-02 Yes [id number] 600mg Take 1 [facility] 600 mg 1-13 tablet by ity of tablet 00:00: mouth [place] 00 every 6 Medical (six) Branch hours as needed for Pain (scale 4-6). ibuprofen 2018-02 Yes [id number] 600mg Take 1 [facility] 600 mg 1-13 tablet by ity of tablet 00:00: mouth [place] 00 every 6 Medical (six) Branch hours as needed for Pain (scale 4-6). ibuprofen 2018- Yes [id number] 600mg Take 1 [facility] 600 mg 1-13 tablet by ity of tablet 00:00: mouth [place] 00 every 6 Medical (six) Branch hours as needed for Pain (scale 4-6). ibuprofen 2018- Yes [id number] 600mg Take 1 [facility] 600 mg 1-13 tablet by ity of tablet 00:00: mouth [place] 00 every 6 Medical (six) Branch hours as needed for Pain (scale 4-6). ibuprofen 2018- Yes [id number] 600mg Take 1 [facility] 600 mg 1-13 tablet by ity of tablet 00:00: mouth [place] 00 every 6 Medical (six) Branch hours as needed for Pain (scale 4-6). ibuprofen 2018-02 Yes [id number] 600mg Take 1 [facility] 600 mg 1-13 tablet by ity of tablet 00:00: mouth [place] 00 every 6 Medical (six) Branch hours as needed for Pain (scale 4-6). ibuprofen 2018-02 Yes [id number] 600mg Take 1 [facility] 600 mg 1-13 tablet by ity of tablet 00:00: mouth [place] 00 every 6 Medical (six) Branch hours as needed for Pain (scale 4-6). ibuprofen 2018-02 Yes [id number] 600mg Take 1 [facility] 600 mg 1-13 tablet by ity of tablet 00:00: mouth [place] 00 every 6 Medical (six) Branch hours as needed for Pain (scale 4-6). ibuprofen 2018-02 Yes [id number] 600mg Take 1 [facility] 600 mg 1-13 tablet by ity of tablet 00:00: mouth [place] 00 every 6 Medical (six) Branch hours as needed for Pain (scale 4-6). ibuprofen 2018-02 Yes [id number] 600mg Take 1 [facility] 600 mg 1-13 tablet by ity of tablet 00:00: mouth [place] 00 every 6 Medical (six) Branch hours as needed for Pain (scale 4-6). ibuprofen 2018-02 Yes [id number] 600mg Take 1 [facility] 600 mg 1-13 tablet by ity of tablet 00:00: mouth [place] 00 every 6 Medical (six) Branch hours as needed for Pain (scale 4-6). ibuprofen 2018-02 Yes [id number] 600mg Take 1 [facility] 600 mg 1-13 tablet by ity of tablet 00:00: mouth [place] 00 every 6 Medical (six) Branch hours as needed for Pain (scale 4-6). ibuprofen 2018- Yes [id number] 600mg Take 1 [facility] 600 mg 1-13 tablet by ity of tablet 00:00: mouth [place] 00 every 6 Medical (six) Branch hours as needed for Pain (scale 4-6). ibuprofen 2018- Yes [id number] 600mg Take 1 [facility] 600 mg 1-13 tablet by ity of tablet 00:00: mouth [place] 00 every 6 Medical (six) Branch hours as needed for Pain (scale 4-6). ibuprofen 2018 Yes [id number] 600mg Take 1 [facility] 600 mg 1-13 tablet by ity of tablet 00:00: mouth [place] 00 every 6 Medical (six) Branch hours as needed for Pain (scale 4-6). ibuprofen 2018-02 Yes [id number] 600mg Take 1 [facility] 600 mg 1-13 tablet by ity of tablet 00:00: mouth [place] 00 every 6 Medical (six) Branch hours as needed for Pain (scale 4-6). ibuprofen 2018-02 Yes [id number] 600mg Take 1 [facility] 600 mg 1-13 tablet by ity of tablet 00:00: mouth [place] 00 every 6 Medical (six) Branch hours as needed for Pain (scale 4-6). ibuprofen 2018-02 Yes [id number] 600mg Take 1 [facility] 600 mg 1-13 tablet by ity of tablet 00:00: mouth [place] 00 every 6 Medical (six) Branch hours as needed for Pain (scale 4-6). ibuprofen 2018-02 Yes [id number] 600mg Take 1 [facility] 600 mg 1-13 tablet by ity of tablet 00:00: mouth [place] 00 every 6 Medical (six) Branch hours as needed for Pain (scale 4-6). ibuprofen 2018-02 Yes [id number] 600mg Take 1 [facility] 600 mg 1-13 tablet by ity of tablet 00:00: mouth [place] 00 every 6 Medical (six) Branch hours as needed for Pain (scale 4-6). ibuprofen 2018-02 Yes [id number] 600mg Take 1 [facility] 600 mg 1-13 tablet by ity of tablet 00:00: mouth [place] 00 every 6 Medical (six) Branch hours as needed for Pain (scale 4-6). ibuprofen 2018-02 Yes [id number] 600mg Take 1 [facility] 600 mg 1-13 tablet by ity of tablet 00:00: mouth [place] 00 every 6 Medical (six) Branch hours as needed for Pain (scale 4-6). ibuprofen 2018-02 Yes [id number] 600mg Take 1 [facility] 600 mg 1-13 tablet by ity of tablet 00:00: mouth [place] 00 every 6 Medical (six) Branch hours as needed for Pain (scale 4-6). ibuprofen 2018-02 Yes [id number] 600mg Take 1 [facility] 600 mg 1-13 tablet by ity of tablet 00:00: mouth [place] 00 every 6 Medical (six) Branch hours as needed for Pain (scale 4-6). ibuprofen 2018-02 Yes [id number] 600mg Take 1 [facility] 600 mg 1-13 tablet by ity of tablet 00:00: mouth [place] 00 every 6 Medical (six) Branch hours as needed for Pain (scale 4-6). ibuprofen 2018- Yes [id number] 600mg Take 1 [facility] 600 mg 1-13 tablet by ity of tablet 00:00: mouth [place] 00 every 6 Medical (six) Branch hours as needed for Pain (scale 4-6). ibuprofen 2018-02 Yes [id number] 600mg Take 1 [facility] 600 mg 1-13 tablet by ity of tablet 00:00: mouth [place] 00 every 6 Medical (six) Branch hours as needed for Pain (scale 4-6). ibuprofen 2018-02 Yes [id number] 600mg Take 1 [facility] 600 mg 1-13 tablet by ity of tablet 00:00: mouth [place] 00 every 6 Medical (six) Branch hours as needed for Pain (scale 4-6). ibuprofen 2018-02 Yes [id number] 600mg Take 1 [facility] 600 mg 1-13 tablet by ity of tablet 00:00: mouth [place] 00 every 6 Medical (six) Branch hours as needed for Pain (scale 4-6). ibuprofen 2018-02 Yes [id number] 600mg Take 1 [facility] 600 mg 1-13 tablet by ity of tablet 00:00: mouth [place] 00 every 6 Medical (six) Branch hours as needed for Pain (scale 4-6). ibuprofen 2018-02 Yes [id number] 600mg Take 1 [facility] 600 mg 1-13 tablet by ity of tablet 00:00: mouth [place] 00 every 6 Medical (six) Branch hours as needed for Pain (scale 4-6). ibuprofen 2018-02 Yes [id number] 600mg Take 1 [facility] 600 mg 1-13 tablet by ity of tablet 00:00: mouth [place] 00 every 6 Medical (six) Branch hours as needed for Pain (scale 4-6). ibuprofen 2018- Yes [id number] 600mg Take 1 [facility] 600 mg 1-13 tablet by ity of tablet 00:00: mouth [place] 00 every 6 Medical (six) Branch hours as needed for Pain (scale 4-6). ibuprofen 2018- Yes [id number] 600mg Take 1 [facility] 600 mg 1-13 tablet by ity of tablet 00:00: mouth [place] 00 every 6 Medical (six) Branch hours as needed for Pain (scale 4-6). ibuprofen 2018-02 Yes [id number] 600mg Take 1 [facility] 600 mg 1-13 tablet by ity of tablet 00:00: mouth [place] 00 every 6 Medical (six) Branch hours as needed for Pain (scale 4-6). ibuprofen 2018-02 Yes [id number] 600mg Take 1 [facility] 600 mg 1-13 tablet by ity of tablet 00:00: mouth [place] 00 every 6 Medical (six) Branch hours as needed for Pain (scale 4-6). ibuprofen 2018-02 Yes [id number] 600mg Take 1 [facility] 600 mg 1-13 tablet by ity of tablet 00:00: mouth [place] 00 every 6 Medical (six) Branch hours as needed for Pain (scale 4-6). ibuprofen 2018-02 Yes [id number] 600mg Take 1 [facility] 600 mg 1-13 tablet by ity of tablet 00:00: mouth [place] 00 every 6 Medical (six) Branch hours as needed for Pain (scale 4-6). ibuprofen 2018-02 Yes [id number] 600mg Take 1 [facility] 600 mg 1-13 tablet by ity of tablet 00:00: mouth [place] 00 every 6 Medical (six) Branch hours as needed for Pain (scale 4-6). ibuprofen 2018-02 Yes [id number] 600mg Take 1 [facility] 600 mg 1-13 tablet by ity of tablet 00:00: mouth [place] 00 every 6 Medical (six) Branch hours as needed for Pain (scale 4-6). ibuprofen 2018-02 Yes [id number] 600mg Take 1 [facility] 600 mg 1-13 tablet by ity of tablet 00:00: mouth [place] 00 every 6 Medical (six) Branch hours as needed for Pain (scale 4-6). ibuprofen 2018-02 Yes [id number] 600mg Take 1 [facility] 600 mg 1-13 tablet by ity of tablet 00:00: mouth [place] 00 every 6 Medical (six) Branch hours as needed for Pain (scale 4-6). ibuprofen 2018- Yes [id number] 600mg Take 1 [facility] 600 mg 1-13 tablet by ity of tablet 00:00: mouth [place] 00 every 6 Medical (six) Branch hours as needed for Pain (scale 4-6). ibuprofen 2018- Yes [id number] 600mg Take 1 [facility] 600 mg 1-13 tablet by ity of tablet 00:00: mouth [place] 00 every 6 Medical (six) Branch hours as needed for Pain (scale 4-6). ibuprofen 2018-02 Yes [id number] 600mg Take 1 [facility] 600 mg 1-13 tablet by ity of tablet 00:00: mouth [place] 00 every 6 Medical (six) Branch hours as needed for Pain (scale 4-6). ibuprofen 2018-02 Yes [id number] 600mg Take 1 [facility] 600 mg 1-13 tablet by ity of tablet 00:00: mouth [place] 00 every 6 Medical (six) Branch hours as needed for Pain (scale 4-6). ibuprofen 2018-02 Yes [id number] 600mg Take 1 [facility] 600 mg 1-13 tablet by ity of tablet 00:00: mouth [place] 00 every 6 Medical (six) Branch hours as needed for Pain (scale 4-6). ibuprofen 2018-02 Yes [id number] 600mg Take 1 [facility] 600 mg 1-13 tablet by ity of tablet 00:00: mouth [place] 00 every 6 Medical (six) Branch hours as needed for Pain (scale 4-6). ibuprofen 2018-02 Yes [id number] 600mg Take 1 [facility] 600 mg 1-13 tablet by ity of tablet 00:00: mouth [place] 00 every 6 Medical (six) Branch hours as needed for Pain (scale 4-6). ibuprofen 2018-02 Yes [id number] 600mg Take 1 [facility] 600 mg 1-13 tablet by ity of tablet 00:00: mouth [place] 00 every 6 Medical (six) Branch hours as needed for Pain (scale 4-6). ibuprofen 2018-02- No [id number] 600mg Take 1 [facility] 600 mg 1-13 10-24 tablet by ity of tablet 00:00: 00:00 mouth [place] 00 :00 every 6 Medical (six) Branch hours as needed for Pain (scale 4-6). cyclobenzap 2018-02- No [id number] 10mg Take 1 [facility] rine 10 mg 1-13 02-14 tablet by ity of tablet 00:00: 00:00 mouth 3 [place] 00 :00 (three) Medical times Branch daily. cyclobenzap 2018-02- No [id number] 10mg Take 1 [facility] rine 10 mg 1-13 02-14 tablet by ity of tablet 00:00: 00:00 mouth 3 [place] 00 :00 (three) Medical times Branch daily. azaTHIOprin 2019-0 Yes 150mg QD Take [address] [facility] (IMURAN) 9-14 mg by [facility] mg 12:13: mouth [facility] tablet 12 daily. [facility] dicyclomine 2019-0 Yes 10mg [id number] Take [address] [facility] (BENTYL) 10 9-14 [id number] by mouth 3 [facility] capsule 12:13: [...] 12 daily. Center dicyclomine 2019-0 Yes 10mg [id number] Take [address] [facility] (BENTYL) 10 9-14 [id number] by mouth 3 [facility] capsule 12:13: [...] 12 daily. Center dicyclomine 2019-0 Yes 10mg Q.[id number] Take [address] [facility] (BENTYL) 10 9-14 [id number] by mouth 3 [facility] capsule 12:13: [...] mouth Medical capsule 12 nightly. Center pregabalin [id number] Yes 75mg Q.5D Take 75 mg C [...] 12 daily. Center dicyclomine 2019-0 Yes 10mg Q.[id number] Take [address] [facility] (BENTYL) 10 9-14 [id number] by mouth 3 [facility] capsule 12:13: [...] mouth Medical capsule 12 nightly. Center pregabalin [id number] Yes 75mg Q.5D Take 75 mg C [...] al 40 MG 12 Center tablet mesalamine 2018-0 Yes 1000mg Q.5D Take 1,[address] [facility] (PENTASA) 9-14 mg by [facility] CR 12:13: mouth 2 Medic al capsule 12 (two) Center times daily. lidocaine 2019-0 Yes 2{patch [address] [facility] [address] (LIDODERM) 9-14 } patches [facility] 5 % patch 00:00: onto the [facility] skin daily Center Remove & Discard patch within 12 hours. May cut if necessary. LORazepam 2019-0 Yes .5mg Take [address] [facility] (ATIVAN) 9-14 tablet [facility] 0.5 MG 00:00: (0.5 mg Medical tablet 00 total) by Center mouth every night as needed for Anxiety. Max Daily Amount: 0.5 mg lidocaine 2019-0 Yes 2{patch Q24H Place [address] (LIDODERM) 9-14 } patches [facility] 5 % patch 00:00: onto the [facility] skin daily Center Remove & Discard patch within 12 hours. May cut if necessary. LORazepam 2019-0 Yes .5mg Take [address] [facility] (ATIVAN) 9-14 tablet [facility] 0.5 MG 00:00: (0.5 mg Medical tablet 00 total) by Center mouth every night as needed for Anxiety. Max Daily Amount: 0.5 mg lidocaine 2019-0 Yes 2{patch Q24H Place [address] (LIDODERM) 9-14 } patches [facility] 5 % patch 00:00: onto the [facility] skin daily Center Remove & Discard patch within 12 hours. May cut if necessary. LORazepam 2019-0 Yes .5mg Take [address] [facility] [address] (ATIVAN) 9-14 tablet [facility] 0.5 MG 00:00: (0.5 mg Medical tablet 00 total) by Center mouth every night as needed for Anxiety. Max Daily Amount: 0.5 mg lidocaine 2019-0 Yes 2{patch Q24H Place [address] (LIDODERM) 9-14 } patches [facility] 5 % patch 00:00: onto the [facility] skin daily Center Remove & Discard patch within 12 hours. May cut if necessary. LORazepam 2019-0 Yes .5mg Take [address] [facility] (ATIVAN) 9-14 tablet [facility] 0.5 MG 00:00: (0.5 mg Medical tablet 00 total) by Center mouth every night as needed for Anxiety. Max Daily Amount: 0.5 mg Bactrim DS Bactrim DS 2017-0 2018- No Levy 1 tablet Common 08-24 [facility] 00:00: 00:00 - [facility] 00 :00 [facility] Pyridium Pyridium 2017-0 2018- No Levy 1 tablet Common 08-24 07-15 [facility] after [facility] 00:00: 00:00 meals - [facility] 00 :00 [facility] hydrOXYzine 2020- No TAKE 1 Uni [...] Medical HOURS Branch NEEDED FOR ANXIETY sodium,pota 2015- Yes [id number] Please see [facility] [place] [facility] [place] 6-16 instructio ity of sulfates 00:00: ns [place] (SUPREP 00 provided. Medical BOWEL PREP Branch KIT) 17.5-3.13-1 .6 gram SolR sodium,pota 2016- Yes [id number] Please see [facility] [place] [facility] [place] 6-16 instructio ity of sulfates 00:00: [facility] (SUPREP 00 provided. Medical BOWEL PREP Branch KIT) 17.5-3.13-1 .6 gram SolR sodium,pota 2016-0 Yes [id number] Please see [facility] [place] [facility] 6-16 instructio ity of sulfates 00:00: ns [place] (SUPREP 00 provided. Medical BOWEL PREP Branch KIT) 17.5-3.13-1 .6 gram SolR sodium,pota 2016-0 Yes [id number] Please see [facility] [place] [facility] [place] 6-16 instructio ity of sulfates 00:00: ns [place] (SUPREP 00 provided. Medical BOWEL PREP Branch KIT) 17.5-3.13-1 .6 gram SolR sodium,pota 2016-0 Yes [id number] Please see [facility] [place] [facility] [place] 6-16 instructio ity of sulfates 00:00: ns [place] (SUPREP 00 provided. Medical BOWEL PREP Branch KIT) 17.5-3.13-1 .6 gram SolR sodium,pota 2016-0 Yes [id number] Please see [facility] [place] [facility] [place] 6-16 instructio ity of sulfates 00:00: [facility] (SUPREP 00 provided. Medical BOWEL PREP Branch KIT) 17.5-3.13-1 .6 gram SolR sodium,pota 2016-0 Yes [id number] Please see [facility] [place] [facility] [place] 6-16 instructio ity of sulfates 00:00: ns [place] (SUPREP 00 provided. Medical BOWEL PREP Branch KIT) 17.5-3.13-1 .6 gram SolR sodium,pota 2016-0 Yes [id number] Please see [facility] [place] [facility] [place] 6-16 instructio ity of sulfates 00:00: ns [place] (SUPREP 00 provided. Medical BOWEL PREP Branch KIT) 17.5-3.13-1 .6 gram SolR sodium,pota 2016-0 Yes [id number] Please see [facility] [place] [facility] [place] 6-16 instructio ity of sulfates 00:00: [facility] (SUPREP 00 provided. Medical BOWEL PREP Branch KIT) 17.5-3.13-1 .6 gram SolR sodium,pota 2016-0 Yes [id number] Please see [facility] [place] [facility] [place] 6-16 instructio ity of sulfates 00:00: [facility] (SUPREP 00 provided. Medical BOWEL PREP Branch KIT) 17.5-3.13-1 .6 gram SolR sodium,pota 2016-0 Yes [id number] Please see [facility] [place] [facility] [place] 6-16 instructio ity of sulfates 00:00: [facility] (SUPREP 00 provided. Medical BOWEL PREP Branch KIT) 17.5-3.13-1 .6 gram SolR sodium,pota 2016-0 Yes [id number] Please see [facility] [place] [facility] [place] 6-16 instructio ity of sulfates 00:00: [facility] (SUPREP 00 provided. Medical BOWEL PREP Branch KIT) 17.5-3.13-1 .6 gram SolR sodium,pota 2016-0 Yes [id number] Please see [facility] [place] [facility] [place] 6-16 instructio ity of sulfates 00:00: [facility] (SUPREP 00 provided. Medical BOWEL PREP Branch KIT) 17.5-3.13-1 .6 gram SolR sodium,pota 2016-0 Yes [id number] Please see [facility] [place] [facility] [place] 6-16 instructio ity of sulfates 00:00: [facility] (SUPREP 00 provided. Medical BOWEL PREP Branch KIT) 17.5-3.13-1 .6 gram SolR sodium,pota 2016-0 Yes [id number] Please see [facility] 6-16 instructio ity of sulfates 00:00: ns [place] (SUPREP 00 provided. Medical BOWEL PREP Branch KIT) 17.5-3.13-1 .6 gram SolR sodium,pota 2016- Yes [id number] Please see [facility] 6-16 instructio ity of sulfates 00:00: ns [place] (SUPREP 00 provided. Medical BOWEL PREP Branch KIT) 17.5-3.13-1 .6 gram SolR sodium,pota 2016- Yes [id number] Please see [facility] 6-16 instructio ity of sulfates 00:00: ns [place] (SUPREP 00 provided. Medical BOWEL PREP Branch KIT) 17.5-3.13-1 .6 gram SolR sodium,pota 2016- Yes [id number] Please see [facility] 6-16 instructio ity of sulfates 00:00: ns [place] (SUPREP 00 provided. Medical BOWEL PREP Branch KIT) 17.5-3.13-1 .6 gram SolR sodium,pota 2015- Yes [id number] Please see [facility] 6-16 instructio ity of sulfates 00:00: ns [place] (SUPREP 00 provided. Medical BOWEL PREP Branch KIT) 17.5-3.13-1 .6 gram SolR sodium,pota 2015- Yes [id number] Please see [facility] 6-16 instructio ity of sulfates 00:00: ns [place] (SUPREP 00 provided. Medical BOWEL PREP Branch KIT) 17.5-3.13-1 .6 gram SolR sodium,pota Yes [id number] Please see [facility] 6-16 instructio ity of sulfates 00:00: ns [place] (SUPREP 00 provided. Medical BOWEL PREP Branch KIT) 17.5-3.13-1 .6 gram SolR sodium,pota 2016-0 Yes [id number] Please see [facility] 6-16 instructio ity of sulfates 00:00: ns [place] (SUPREP 00 provided. Medical BOWEL PREP Branch KIT) 17.5-3.13-1 .6 gram SolR sodium,pota 2016- Yes [id number] Please see [facility] 6-16 instructio ity of sulfates 00:00: ns [place] (SUPREP 00 provided. Medical BOWEL PREP Branch KIT) 17.5-3.13-1 .6 gram SolR sodium,pota 2016-0 Yes [id number] Please see [facility] 6-16 instructio ity of sulfates 00:00: [facility] (SUPREP 00 provided. Medical BOWEL PREP Branch KIT) 17.5-3.13-1 .6 gram SolR sodium,pota 2016-0 Yes [id number] Please see [facility] 6-16 instructio ity of sulfates 00:00: [facility] (SUPREP 00 provided. Medical BOWEL PREP Branch KIT) 17.5-3.13-1 .6 gram SolR sodium,pota 2016-0 Yes [id number] Please see [facility] 6-16 instructio ity of sulfates 00:00: [facility] (SUPREP 00 provided. Medical BOWEL PREP Branch KIT) 17.5-3.13-1 .6 gram SolR sodium,pota 2016-0 Yes [id number] Please see [facility] 6-16 instructio ity of sulfates 00:00: [facility] (SUPREP 00 provided. Medical BOWEL PREP Branch KIT) 17.5-3.13-1 .6 gram SolR sodium,pota 2016-0 Yes [id number] Please see [facility] 6-16 instructio ity of sulfates 00:00: [facility] (SUPREP 00 provided. Medical BOWEL PREP Branch KIT) 17.5-3.13-1 .6 gram SolR sodium,pota 2016-0 Yes [id number] Please see [facility] 6-16 instructio ity of sulfates 00:00: [facility] (SUPREP 00 provided. Medical BOWEL PREP Branch KIT) 17.5-3.13-1 .6 gram SolR sodium,pota 2016-0 Yes [id number] Please see [facility] 6-16 instructio ity of sulfates 00:00: [facility] (SUPREP 00 provided. Medical BOWEL PREP Branch KIT) 17.5-3.13-1 .6 gram SolR sodium,pota 2016-0 Yes [id number] Please see [facility] 6-16 instructio ity of sulfates 00:00: [facility] (SUPREP 00 provided. Medical BOWEL PREP Branch KIT) 17.5-3.13-1 .6 gram SolR sodium,pota Yes [id number] Please see [facility] 6-16 instructio ity of sulfates 00:00: [facility] (SUPREP 00 provided. Medical BOWEL PREP Branch KIT) 17.5-3.13-1 .6 gram SolR sodium,pota Yes [id number] Please see [facility] 6-16 instructio ity of sulfates 00:00: [facility] (SUPREP 00 provided. Medical BOWEL PREP Branch KIT) 17.5-3.13-1 .6 gram SolR sodium,pota 2021- No [id number] Please see [facility] 6-16 04-18 instructio ity of sulfates 00:00: 00:00 [facility] (SUPREP 00 :00 provided. Medical [...] 5-18 ity of mg tablet 00:00: 00 [facility] Branch ondansetron 0 Yes Univer s (ZOFRAN) 4 5-18 ity of mg tablet 00:00: Medical Branch ondansetron 0 Yes [facility] (ZOFRAN) 4 5-18 ity of mg tablet 00:00: 00 [facility] ondansetron 2015-0 Yes Univer s (ZOFRAN) 4 5-18 ity of mg tablet 00:00: [facility] ondansetron 0 Yes Univer s (ZOFRAN) 4 5-18 ity of mg tablet 00:00: [place] 00 Medical Branch ondansetron 2016-0 Yes Univer [...] tablet 00:00: [place] 00 Medical Branch ondansetron 2016-0 Yes Univer s (ZOFRAN) 4 5-18 ity of mg tablet 00:00: [place] [facility] ondansetron 2016-0 Yes Univer s (ZOFRAN) 4 5-18 ity of mg tablet 00:00: Medical Branch ondansetron 2016-0 Yes Univer s (ZOFRAN) 4 5-18 ity of mg tablet 00:00: [place] 00 Medical Branch ondansetron 20160 Yes Univer s (ZOFRAN) 4 5-18 ity of mg tablet 00:00: [place] [facility] ondansetron 2016-0 Yes Univer s (ZOFRAN) 4 5-18 ity of mg tablet 00:00: [place] 00 Medical Branch ondansetron 2016-0 Yes Univer s (ZOFRAN) 4 5-18 ity of mg tablet 00:00: [place] [facility] ondansetron 2016-0 Yes Univer s (ZOFRAN) 4 5-18 ity of mg tablet 00:00: [place] 00 Medical Branch ondansetron 2016-0 Yes Univer s (ZOFRAN) 4 5-18 ity of mg tablet 00:00: [place] 00 Medical Branch ondansetron 2016-0 Yes Univer s (ZOFRAN) 4 5-18 ity of mg tablet 00:00: [place] 00 Medical Branch ondansetron 2016-0 Yes Univer s (ZOFRAN) 4 5-18 ity of mg tablet 00:00: [place] 00 Medical Branch ondansetron 2016-0 Yes Univer s (ZOFRAN) 4 5-18 ity of mg tablet 00:00: [place] 00 Medical Branch ondansetron 2016-0 2020- No Unive rs (ZOFRAN) 4 5-18 04-14 ity of mg tablet 00:00: 00:00 [place] 00 :00 Medical Branch LYRICA 75 2019- No Univers mg capsule 06-29-14 ity of 00:00: 00:00 [place] 00 :00 Medical Branch LYRICA 75 2019- No Univers mg capsule 06-29-14 ity of 00:00: 00:00 [place] 00 :00 [...] mg 24 00:00: daily. [place] hr capsule [facility] tamsulosin 2014-02 Yes .4mg Take 1 Cap U nivers (FLOMAX) 0-20 by mouth ity of 0.4 mg 24 00:00: daily. [facility] [place] capsule [facility] tamsulosin 2014-02 Yes .4mg Take 1 Cap U nivers (FLOMAX) 0-20 by mouth ity of 0.4 mg 24 00:00: daily. [facility] [place] capsule [facility] tamsulosin 2014-02 Yes .4mg Take 1 Cap U nivers (FLOMAX) 0-20 by mouth ity of 0.4 mg 24 00:00: daily. [facility] [place] capsule [facility] tamsulosin 2014-02 Yes .4mg Take 1 Cap U nivers (FLOMAX) 0-20 by mouth ity of 0.4 mg 24 00:00: daily. [facility] [place] capsule [facility] tamsulosin 2014-02 Yes .4mg Take 1 Cap U nivers (FLOMAX) 0-20 by mouth ity of 0.4 mg 24 00:00: daily. [facility] [place] capsule [facility] tamsulosin 2014-02 Yes .4mg Take 1 Cap U nivers (FLOMAX) 0-20 by mouth ity of 0.4 mg 24 00:00: daily. [facility] [place] capsule [facility] tamsulosin 2014-02 Yes .4mg Take 1 Cap U nivers (FLOMAX) 0-20 by mouth ity of 0.4 mg 24 00:00: daily. [facility] [place] capsule [facility] tamsulosin 2014-02 Yes .4mg Take 1 Cap U nivers (FLOMAX) 0-20 by mouth ity of 0.4 mg 24 00:00: daily. [facility] [place] capsule [facility] tamsulosin 2014-02 Yes .4mg Take 1 Cap U nivers (FLOMAX) 0-20 by mouth ity of 0.4 mg 24 00:00: daily. [facility] [place] capsule [facility] tamsulosin 2014-02 Yes .4mg Take 1 Cap U nivers (FLOMAX) 0-20 by mouth ity of 0.4 mg 24 00:00: daily. [facility] [place] capsule [facility] tamsulosin 2014-02 Yes .4mg Take 1 Cap U nivers (FLOMAX) 0-20 by mouth ity of 0.4 mg 24 00:00: daily. [facility] [place] capsule Medical Branch tamsulosin 2014-02 Yes .4mg Take 1 Cap U nivers (FLOMAX) 0-20 by mouth ity of 0.4 mg 24 00:00: daily. [facility] [place] capsule [facility] tamsulosin 2014-02 Yes .4mg Take 1 Cap U nivers (FLOMAX) 0-20 by mouth ity of 0.4 mg 24 00:00: daily. [facility] [place] capsule [facility] tamsulosin 2014-02 Yes .4mg Take 1 Cap U nivers (FLOMAX) 0-20 by mouth ity of 0.4 mg 24 00:00: daily. [facility] [place] capsule [facility] tamsulosin 2014-02 Yes .4mg Take 1 Cap U nivers (FLOMAX) 0-20 by mouth ity of 0.4 mg 24 00:00: daily. [facility] [place] capsule [facility] tamsulosin 2014-02 Yes .4mg Take 1 Cap U nivers (FLOMAX) 0-20 by mouth ity of 0.4 mg 24 00:00: daily. [facility] [place] capsule [facility] tamsulosin 2014-02 Yes .4mg Take 1 Cap U nivers (FLOMAX) 0-20 by mouth ity of 0.4 mg 24 00:00: daily. [facility] [place] capsule [facility] tamsulosin 2014-02 Yes .4mg Take 1 Cap U nivers (FLOMAX) 0-20 by mouth ity of 0.4 mg 24 00:00: daily. [facility] [place] capsule [facility] tamsulosin 2014-02 Yes .4mg Take 1 Cap U nivers (FLOMAX) 0-20 by mouth ity of 0.4 mg 24 00:00: daily. [facility] [place] capsule [facility] tamsulosin 2014-02 Yes .4mg Take 1 Cap U nivers (FLOMAX) 0-20 by mouth ity of 0.4 mg 24 00:00: daily. [facility] [place] capsule [facility] tamsulosin 2014-02 Yes .4mg Take 1 Cap U nivers (FLOMAX) 0-20 by mouth ity of 0.4 mg 24 00:00: daily. [facility] [place] capsule [facility] tamsulosin 2014-02 Yes .4mg Take 1 Cap U nivers (FLOMAX) 0-20 by mouth ity of 0.4 mg 24 00:00: daily. [facility] [place] capsule Medical Branch tamsulosin 2014-02 Yes .4mg Take 1 Cap U nivers (FLOMAX) 0-20 by mouth ity of 0.4 mg 24 00:00: daily. [place] hr capsule 00 Medical Branch tamsulosin 2014-02- No .4mg Take 1 Cap [facility] (FLOMAX) 0-20 04-01 by mouth ity of 0.4 mg 24 00:00: 00:00 daily. [place] hr capsule 00 :00 Medical Branch Remicade Remicade No Remicade Losartan Losartan No [...] Ibuprofen 600 MG 600 MG 600 MG Luxor Luxor No 1{table TID Luxor 7.5-325 MG 7.5-325 MG t_as_ne 7.5-325 MG eded} Gabapentin Gabapentin No 1{capsu QD Gabapentin 400 MG 400 MG le} 400 MG [place]or Luxor Yes Levy 1 tablet Common [facility] needed [facility] Amitriptyli Amitriptyli Yes Levy 1 tablet Common ne HCl ne HCl [facility] Zofran Zofran Yes Levy 2 tablets Comm on [facility] Pentasa Pentasa Yes Levy 2 capsules C ommon [facility] Lyrica Lyrica Yes Levy 1 capsule Comm on Hernandez 1 to 3 Spirit hours - [facility] before [facility] bedtime in [facility] Lyrica 75 Lyrica 75 No Lyrica [...] Ibuprofen 600 MG 600 MG 600 MG Luxor Luxor No 1{table TID [place] 7.5-325 MG 7.5-325 MG t_as_ne 7.5-325 MG eded} Gabapentin Gabapentin No 1{capsu QD Gabapentin 400 MG 400 MG le} 400 MG Oxybutynin Oxybutynin No 1{table BID Oxybutynin Chloride 5 Chloride 5 t} Chloride 5 MG MG MG Gabapentin Gabapentin No 1{capsu QD Gabapentin 400 MG 400 MG le} 400 MG Luxor Luxor No 1{table TID Luxor 7.5-325 MG 7.5-325 MG t_as_ne 7.5-325 MG [...] 400 MG 400 MG le} 400 MG Luxor Luxor No 1{table TID Luxor 7.5-325 MG 7.5-325 MG t_as_ne 7.5-325 MG [...] No 2{table BID Zofran 4 ts} MG Immunizations Ordered Filled Immunization Date Status Comments Sourc e Immunization Name Name Twinrix (hep a/hep 2015-07-29 Completed Univer sity of b) 00:00:00 [place] [facility] Twinrix (hep a/hep 2015-07-29 Completed Univer sity of b) 00:00:00 [place] [facility] Twinrix (hep a/hep 2015-07-29 Completed Univer sity of b) 00:00:00 [place] [facility] Twinrix (hep a/hep 2015-07-29 Completed Univer sity of b) 00:00:00 [place] [facility] Twinrix (hep a/hep 2015-07-29 Completed Univer sity of b) 00:00:00 [place] [facility] Twinrix (hep a/hep 2015-07-29 Completed Univer sity of b) 00:00:00 [facility] Twinrix (hep a/hep 2015-07-29 Completed Univer sity of b) 00:00:00 [place] [facility] Twinrix (hep a/hep 2015-07-29 Completed Univer sity of b) 00:00:00 [place] [facility] Twinrix (hep a/hep 2015-07-29 Completed Univer sity of b) 00:00:00 [place] [facility] Twinrix (hep a/hep 2015-07-29 Completed Univer sity of b) 00:00:00 [place] [facility] Twinrix (hep a/hep 2015-07-29 Completed Univer sity of b) 00:00:00 [place] [facility] Twinrix (hep a/hep 2015-07-29 Completed Univer sity of b) 00:00:00 [place] [facility] Twinrix (hep a/hep 2015-07-29 Completed Univer sity of b) 00:00:00 [place] [facility] Twinrix (hep a/hep 2015-07-29 Completed Univer sity of b) 00:00:00 [place] [facility] Twinrix (hep a/hep 2015-07-29 Completed Univer sity of b) 00:00:00 [place] [facility] Twinrix (hep a/hep 2015-07-29 Completed Univer sity of b) 00:00:00 [facility] Twinrix (hep a/hep 2015-07-29 Completed Univer sity of b) 00:00:00 [facility] Twinrix (hep a/hep 2015-07-29 Completed Univer sity of b) 00:00:00 [place] [facility] Twinrix (hep a/hep 2015-07-29 Completed Univer sity of b) 00:00:00 [place] [facility] Twinrix (hep a/hep 2015-07-29 Completed Univer sity of b) 00:00:00 [place] [facility] Twinrix (hep a/hep 2015-07-29 Completed Univer sity of b) 00:00:00 [place] [facility] Twinrix (hep a/hep 2015-07-29 Completed Univer sity of b) 00:00:00 [facility] Twinrix (hep a/hep 2015-07-29 Completed Univer sity of b) 00:00:00 [facility] Twinrix (hep a/hep 2015-07-29 Completed Univer sity of b) 00:00:00 [facility] Twinrix (hep a/hep 2015-07-29 Completed Univer sity of b) 00:00:00 [facility] Twinrix (hep a/hep 2015-07-29 Completed Univer sity of b) 00:00:00 [facility] Twinrix (hep a/hep 2015-07-29 Completed Univer sity of b) 00:00:00 [facility] Twinrix (hep a/hep 2015-07-29 Completed Univer sity of b) 00:00:00 [facility] Twinrix (hep a/hep 2015-07-29 Completed Univer sity of b) 00:00:00 [place] [facility] Twinrix (hep a/hep 2015-07-29 Completed Univer sity of b) 00:00:00 [place] [facility] Twinrix (hep a/hep 2015-07-29 Completed Univer sity of b) 00:00:00 [place] [facility] Twinrix (hep a/hep 2015-07-29 Completed Univer sity of b) 00:00:00 [facility] Twinrix (hep a/hep 2015-07-29 Completed Univer sity of b) 00:00:00 [facility] Twinrix (hep a/hep 2015-07-29 Completed Univer sity of b) 00:00:00 [facility] Twinrix (hep a/hep 2015-07-29 Completed Univer sity of b) 00:00:00 [place] [facility] Twinrix (hep a/hep 2015-07-29 Completed Univer sity of b) 00:00:00 [place] [facility] Twinrix (hep a/hep 2015-07-29 Completed Univer sity of b) 00:00:00 [facility] Twinrix (hep a/hep 2015-07-29 Completed Univer sity of b) 00:00:00 [place] [facility] Twinrix (hep a/hep 2015-07-29 Completed Univer sity of b) 00:00:00 [facility] Twinrix (hep a/hep 2015-07-29 Completed Univer sity of b) 00:00:00 [facility] Twinrix (hep a/hep 2015-07-29 Completed Univer sity of b) 00:00:00 [facility] Twinrix (hep a/hep 2015-07-29 Completed Univer sity of b) 00:00:00 [facility] Twinrix (hep a/hep 2015-07-29 Completed Univer sity of b) 00:00:00 [facility] Twinrix (hep a/hep 2015-07-29 Completed Univer sity of b) 00:00:00 [facility] Twinrix (hep a/hep 2015-07-29 Completed Univer sity of b) 00:00:00 [facility] Twinrix (hep a/hep 2015-07-29 Completed Univer sity of b) 00:00:00 [place] [facility] Twinrix (hep a/hep 2015-07-29 Completed Univer sity of b) 00:00:00 [facility] Twinrix (hep a/hep 2015-07-29 Completed Univer sity of b) 00:00:00 [place] [facility] Twinrix (hep a/hep 2015-07-29 Completed Univer sity of b) 00:00:00 [place] [facility] Twinrix (hep a/hep 2015-07-29 Completed Univer sity of b) 00:00:00 [facility] Twinrix (hep a/hep 2015-07-29 Completed Univer sity of b) 00:00:00 [facility] Twinrix (hep a/hep 2015-07-29 Completed Univer sity of b) 00:00:00 [facility] Twinrix (hep a/hep 2015-07-29 Completed Univer sity of b) 00:00:00 [place] [facility] Twinrix (hep a/hep 2015-07-29 Completed Univer sity of b) 00:00:00 [place] [facility] Twinrix (hep a/hep 2015-07-29 Completed Univer sity of b) 00:00:00 [facility] Twinrix (hep a/hep 2015-07-29 Completed Univer sity of b) 00:00:00 [facility] Twinrix (hep a/hep 2015-07-29 Completed Univer sity of b) 00:00:00 [facility] Twinrix (hep a/hep 2015-07-29 Completed Univer sity of b) 00:00:00 [facility] Twinrix (hep a/hep 2015-07-29 Completed Univer sity of b) 00:00:00 [facility] Twinrix (hep a/hep 2015-07-29 Completed Univer sity of b) 00:00:00 [facility] Twinrix (hep a/hep 2015-07-29 Completed Univer sity of b) 00:00:00 [facility] Twinrix (hep a/hep 2015-07-29 Completed Univer sity of b) 00:00:00 [facility] Twinrix (hep a/hep 2015-07-29 Completed Univer sity of b) 00:00:00 [facility] Twinrix (hep a/hep 2015-07-29 Completed Univer sity of b) 00:00:00 [facility] Twinrix (hep a/hep 2015-07-29 Completed Univer sity of b) 00:00:00 [facility] Twinrix (hep a/hep 2015-07-29 Completed Univer sity of b) 00:00:00 [facility] Twinrix (hep a/hep 2015-07-29 Completed Univer sity of b) 00:00:00 [facility] Twinrix (hep a/hep 2015-07-29 Completed Univer sity of b) 00:00:00 [facility] (hep a/hep 2015-07-29 Completed Univer sity of b) 00:00:00 [facility] (hep a/hep 2015-07-29 Completed Univer sity of b) 00:00:00 [facility] (hep a/hep 2015-07-29 Completed Univer sity of b) 00:00:00 [facility] (hep a/hep 2015-07-29 Completed Univer sity of b) 00:00:00 [facility] (hep a/hep 2015-07-29 Completed Univer sity of b) 00:00:00 [facility] (hep a/hep 2015-07-29 Completed Univer sity of b) 00:00:00 [facility] Influenza Virus 2015-06-29 Completed Universit y of Vaccine Quad IM 3+ 00:00:[address] [facility] Influenza Virus 2015-06-29 Completed Universit y of Vaccine Quad IM 3+ 00:00:[address] [facility] Influenza Virus 2015-06-29 Completed Universit y of Vaccine Quad IM 3+ 00:00:[address] [facility] Influenza Virus 2015-06-29 Completed Universit y of Vaccine Quad IM 3+ 00:00:[address] [facility] Influenza Virus 2015-06-29 Completed Universit y of Vaccine Quad IM 3+ 00:00:[address] [facility] Influenza Virus 2015-06-29 Completed Universit y of Vaccine Quad IM 3+ 00:00:[address] [facility] Influenza Virus 2015-06-29 Completed Universit y of Vaccine Quad IM 3+ 00:00:[address] [facility] Influenza Virus 2015-06-29 Completed Universit y of Vaccine Quad IM 3+ 00:00:[address] [facility] Influenza Virus 2015-06-29 Completed Universit y of Vaccine Quad IM 3+ 00:00:[address] [facility] Influenza Virus 2015-06-29 Completed Universit y of Vaccine Quad IM 3+ 00:00:[address] [facility] Influenza Virus 2015-06-29 Completed Universit y of Vaccine Quad IM 3+ 00:00:[address] [facility] Influenza Virus 2015-06-29 Completed Universit y of Vaccine Quad IM 3+ 00:00:[address] [facility] Influenza Virus 2015-06-29 Completed Universit y of Vaccine Quad IM 3+ 00:00:[address] [facility] Influenza Virus 2015-06-29 Completed Universit y of Vaccine Quad IM 3+ 00:00:[address] [facility] Influenza Virus 2015-06-29 Completed Universit y of Vaccine Quad IM 3+ 00:00:[address] [facility] Influenza Virus 2015-06-29 Completed Universit y of Vaccine Quad IM 3+ 00:00:[address] [facility] Influenza Virus 2015-06-29 Completed Universit y of Vaccine Quad IM 3+ 00:00:[address] [facility] Influenza Virus 2015-06-29 Completed Universit y of Vaccine Quad IM 3+ 00:00:[address] [facility] Influenza Virus 2015-06-29 Completed Universit y of Vaccine Quad IM 3+ 00:00:[address] [facility] Influenza Virus 2015-06-29 Completed Universit y of Vaccine Quad IM 3+ 00:00:[address] [facility] Influenza Virus 2015-06-29 Completed Universit y of Vaccine Quad IM 3+ 00:00:[address] [facility] Influenza Virus 2015-06-29 Completed Universit y of Vaccine Quad IM 3+ 00:00:[address] [facility] Influenza Virus 2015-06-29 Completed Universit y of Vaccine Quad IM 3+ 00:00:[address] [facility] Influenza Virus 2015-06-29 Completed Universit y of Vaccine Quad IM 3+ 00:00:[address] [facility] Influenza Virus 2015-06-29 Completed Universit y of Vaccine Quad IM 3+ 00:00:[address] [facility] Influenza Virus 2015-06-29 Completed Universit y of Vaccine Quad IM 3+ 00:00:[address] [facility] Influenza Virus 2015-06-29 Completed Universit y of Vaccine Quad IM 3+ 00:00:[address] [facility] Influenza Virus 2015-06-29 Completed Universit y of Vaccine Quad IM 3+ 00:00:[address] [facility] Influenza Virus 2015-06-29 Completed Universit y of Vaccine Quad IM 3+ 00:00:[address] [facility] Influenza Virus 2015-06-29 Completed Universit y of Vaccine Quad IM 3+ 00:00:[address] [facility] Influenza Virus 2015-06-29 Completed Universit y of Vaccine Quad IM 3+ 00:00:[address] [facility] Influenza Virus 2015-06-29 Completed Universit y of Vaccine Quad IM 3+ 00:00:[address] [facility] Influenza Virus 2015-06-29 Completed Universit y of Vaccine Quad IM 3+ 00:00:[address] [facility] Influenza Virus 2015-06-29 Completed Universit y of Vaccine Quad IM 3+ 00:00:[address] [facility] Influenza Virus 2015-06-29 Completed Universit y of Vaccine Quad IM 3+ 00:00:[address] [facility] Influenza Virus 2015-06-29 Completed Universit y of Vaccine Quad IM 3+ 00:00:[address] [facility] Influenza Virus 2015-06-29 Completed Universit y of Vaccine Quad IM 3+ 00:00:[address] [facility] Influenza Virus 2015-06-29 Completed Universit y of Vaccine Quad IM 3+ 00:00:[address] [facility] Influenza Virus 2015-06-29 Completed Universit y of Vaccine Quad IM 3+ 00:00:[address] [facility] Influenza Virus 2015-06-29 Completed Universit y of Vaccine Quad IM 3+ 00:00:[address] [facility] Influenza Virus 2015-06-29 Completed Universit y of Vaccine Quad IM 3+ 00:00:[address] [facility] Influenza Virus 2015-06-29 Completed Universit y of Vaccine Quad IM 3+ 00:00:[address] [facility] Influenza Virus 2015-06-29 Completed Universit y of Vaccine Quad IM 3+ 00:00:[address] [facility] Influenza Virus 2015-06-29 Completed Universit y of Vaccine Quad IM 3+ 00:00:[address] [facility] Influenza Virus 2015-06-29 Completed Universit y of Vaccine Quad IM 3+ 00:00:[address] [facility] Influenza Virus 2015-06-29 Completed Universit y of Vaccine Quad IM 3+ 00:00:[address] [facility] Influenza Virus 2015-06-29 Completed Universit y of Vaccine Quad IM 3+ 00:00:[address] [facility] Influenza Virus 2015-06-29 Completed Universit y of Vaccine Quad IM 3+ 00:00:[address] [facility] Influenza Virus 2015-06-29 Completed Universit y of Vaccine Quad IM 3+ 00:00:[address] [facility] Influenza Virus 2015-06-29 Completed Universit y of Vaccine Quad IM 3+ 00:00:[address] [facility] Influenza Virus 2015-06-29 Completed Universit y of Vaccine Quad IM 3+ 00:00:[address] [facility] Influenza Virus 2015-06-29 Completed Universit y of Vaccine Quad IM 3+ 00:00:[address] [facility] Influenza Virus 2015-06-29 Completed Universit y of Vaccine Quad IM 3+ 00:00:[address] [facility] Influenza Virus 2015-06-29 Completed Universit y of Vaccine Quad IM 3+ 00:00:[address] [facility] Influenza Virus 2015-06-29 Completed Universit y of Vaccine Quad IM 3+ 00:00:[address] [facility] Influenza Virus 2015-06-29 Completed Universit y of Vaccine Quad IM 3+ 00:00:[address] [facility] Influenza Virus 2015-06-29 Completed Universit y of Vaccine Quad IM 3+ 00:00:[address] [facility] Influenza Virus 2015-06-29 Completed Universit y of Vaccine Quad IM 3+ 00:00:[address] [facility] Influenza Virus 2015-06-29 Completed Universit y of Vaccine Quad IM 3+ 00:00:[address] [facility] Influenza Virus 2015-06-29 Completed Universit y of Vaccine Quad IM 3+ 00:00:[address] [facility] Influenza Virus 2015-06-29 Completed Universit y of Vaccine Quad IM 3+ 00:00:[address] [facility] Influenza Virus 2015-06-29 Completed Universit y of Vaccine Quad IM 3+ 00:00:[address] [facility] Influenza Virus 2015-06-29 Completed Universit y of Vaccine Quad IM 3+ 00:00:[address] [facility] Influenza Virus 2015-06-29 Completed Universit y of Vaccine Quad IM 3+ 00:00:[address] [facility] Influenza Virus 2015-06-29 Completed Universit y of Vaccine Quad IM 3+ 00:00:[address] [facility] Influenza Virus 2015-06-29 Completed Universit y of Vaccine Quad IM 3+ 00:00:[address] [facility] Influenza Virus 2015-06-29 Completed Universit y of Vaccine Quad IM 3+ 00:00:[address] [facility] Influenza Virus 2015-06-29 Completed Universit y of Vaccine Quad IM 3+ 00:00:[address] [facility] Influenza Virus 2015-06-29 Completed Universit y of Vaccine Quad IM 3+ 00:00:[address] [facility] Influenza Virus 2015-06-29 Completed Universit y of Vaccine Quad IM 3+ 00:00:[address] [facility] Influenza Virus 2015-06-29 Completed Universit y of Vaccine Quad IM 3+ 00:00:[address] [facility] Influenza Virus 2015-06-29 Completed Universit y of Vaccine Quad IM 3+ 00:00:[address] [facility] Influenza Virus 2015-06-29 Completed Universit y of Vaccine Quad IM 3+ 00:00:[address] [facility] Influenza Virus 2015-06-29 Completed Universit y of Vaccine Quad IM 3+ 00:00:[address] [facility] Twinrix (hep a/hep 2015-06-28 Completed Univer sity of b) 00:00:00 [facility] Twin[facility] (hep a/hep 2015-06-28 Completed Univer sity of b) 00:00:00 [facility] Twin[facility] (hep a/hep 2015-06-28 Completed Univer sity of b) 00:00:00 [facility] Twin[facility] (hep a/hep 2015-06-28 Completed Univer sity of b) 00:00:00 [facility] Twin[facility] (hep a/hep 2015-06-28 Completed Univer sity of b) 00:00:00 [facility] (hep a/hep 2015-06-28 Completed Univer sity of b) 00:00:00 [facility] Twin[facility] (hep a/hep 2015-06-28 Completed Univer sity of b) 00:00:00 [facility] Twin[facility] (hep a/hep 2015-06-28 Completed Univer sity of b) 00:00:00 [facility] Twin[facility] (hep a/hep 2015-06-28 Completed Univer sity of b) 00:00:00 [facility] Twin[facility] (hep a/hep 2015-06-28 Completed Univer sity of b) 00:00:00 [facility] (hep a/hep 2015-06-28 Completed Univer sity of b) 00:00:00 [facility] Twin[facility] (hep a/hep 2015-06-28 Completed Univer sity of b) 00:00:00 [facility] Twin[facility] (hep a/hep 2015-06-28 Completed Univer sity of b) 00:00:00 [facility] Twin[facility] (hep a/hep 2015-06-28 Completed Univer sity of b) 00:00:00 [facility] (hep a/hep 2015-06-28 Completed Univer sity of b) 00:00:00 [facility] (hep a/hep 2015-06-28 Completed Univer sity of b) 00:00:00 [facility] (hep a/hep 2015-06-28 Completed Univer sity of b) 00:00:00 [facility] (hep a/hep 2015-06-28 Completed Univer sity of b) 00:00:00 [facility] (hep a/hep 2015-06-28 Completed Univer sity of b) 00:00:00 [facility] (hep a/hep 2015-06-28 Completed Univer sity of b) 00:00:00 [facility] Twin[facility] (hep a/hep 2015-06-28 Completed Univer sity of b) 00:00:00 [facility] Twin[facility] (hep a/hep 2015-06-28 Completed Univer sity of b) 00:00:00 [facility] (hep a/hep 2015-06-28 Completed Univer sity of b) 00:00:00 [facility] (hep a/hep 2015-06-28 Completed Univer sity of b) 00:00:00 [facility] (hep a/hep 2015-06-28 Completed Univer sity of b) 00:00:00 [facility] (hep a/hep 2015-06-28 Completed Univer sity of b) 00:00:00 [facility] (hep a/hep 2015-06-28 Completed Univer sity of b) 00:00:00 [facility] (hep a/hep 2015-06-28 Completed Univer sity of b) 00:00:00 [facility] (hep a/hep 2015-06-28 Completed Univer sity of b) 00:00:00 [facility] (hep a/hep 2015-06-28 Completed Univer sity of b) 00:00:00 [facility] Twin[facility] (hep a/hep 2015-06-28 Completed Univer sity of b) 00:00:00 [facility] Twin[facility] (hep a/hep 2015-06-28 Completed Univer sity of b) 00:00:00 [facility] (hep a/hep 2015-06-28 Completed Univer sity of b) 00:00:00 [facility] (hep a/hep 2015-06-28 Completed Univer sity of b) 00:00:00 [facility] (hep a/hep 2015-06-28 Completed Univer sity of b) 00:00:00 [facility] (hep a/hep 2015-06-28 Completed Univer sity of b) 00:00:00 [facility] (hep a/hep 2015-06-28 Completed Univer sity of b) 00:00:00 [facility] Twin[facility] (hep a/hep 2015-06-28 Completed Univer sity of b) 00:00:00 [facility] (hep a/hep 2015-06-28 Completed Univer sity of b) 00:00:00 [facility] (hep a/hep 2015-06-28 Completed Univer sity of b) 00:00:00 [facility] (hep a/hep 2015-06-28 Completed Univer sity of b) 00:00:00 [facility] (hep a/hep 2015-06-28 Completed Univer sity of b) 00:00:00 [facility] (hep a/hep 2015-06-28 Completed Univer sity of b) 00:00:00 [facility] (hep a/hep 2015-06-28 Completed Univer sity of b) 00:00:00 [facility] (hep a/hep 2015-06-28 Completed Univer sity of b) 00:00:00 [facility] (hep a/hep 2015-06-28 Completed Univer sity of b) 00:00:00 [facility] (hep a/hep 2015-06-28 Completed Univer sity of b) 00:00:00 [facility] (hep a/hep 2015-06-28 Completed Univer sity of b) 00:00:00 [facility] (hep a/hep 2015-06-28 Completed Univer sity of b) 00:00:00 [facility] (hep a/hep 2015-06-28 Completed Univer sity of b) 00:00:00 [facility] (hep a/hep 2015-06-28 Completed Univer sity of b) 00:00:00 [facility] (hep a/hep 2015-06-28 Completed Univer sity of b) 00:00:00 [facility] (hep a/hep 2015-06-28 Completed Univer sity of b) 00:00:00 [facility] (hep a/hep 2015-06-28 Completed Univer sity of b) 00:00:00 [facility] Twin[facility] (hep a/hep 2015-06-28 Completed Univer sity of b) 00:00:00 [facility] Twin[facility] (hep a/hep 2015-06-28 Completed Univer sity of b) 00:00:00 [facility] Twin[facility] (hep a/hep 2015-06-28 Completed Univer sity of b) 00:00:00 [facility] (hep a/hep 2015-06-28 Completed Univer sity of b) 00:00:00 [facility] (hep a/hep 2015-06-28 Completed Univer sity of b) 00:00:00 [facility] (hep a/hep 2015-06-28 Completed Univer sity of b) 00:00:00 [facility] Twin[facility] (hep a/hep 2015-06-28 Completed Univer sity of b) 00:00:00 [facility] (hep a/hep 2015-06-28 Completed Univer sity of b) 00:00:00 [facility] (hep a/hep 2015-06-28 Completed Univer sity of b) 00:00:00 [facility] (hep a/hep 2015-06-28 Completed Univer sity of b) 00:00:00 [facility] (hep a/hep 2015-06-28 Completed Univer sity of b) 00:00:00 [facility] (hep a/hep 2015-06-28 Completed Univer sity of b) 00:00:00 [facility] (hep a/hep 2015-06-28 Completed Univer sity of b) 00:00:00 [facility] Twin[facility] (hep a/hep 2015-06-28 Completed Univer sity of b) 00:00:00 [facility] Twin[facility] (hep a/hep 2015-06-28 Completed Univer sity of b) 00:00:00 [facility] (hep a/hep 2015-06-28 Completed Univer sity of b) 00:00:00 [facility] (hep a/hep 2015-06-28 Completed Univer sity of b) 00:00:00 [facility] (hep a/hep 2015-06-28 Completed Univer sity of b) 00:00:00 [facility] (hep a/hep 2015-06-28 Completed Univer sity of b) 00:00:00 [facility] (hep a/hep 2015-06-28 Completed Univer sity of b) 00:00:00 [facility] Vital Signs Vital Name Observation Time Observation Value Comments Source Systolic blood 2022-05-28 03:15:00 97 mm[Hg] Univer sity of pressure [facility] Diastolic blood 2022-05-28 03:15:00 75 mm[Hg] Unive rsity of [facility] Heart rate 2022-05-28 03:15:00 82 /min [facility] Respiratory rate 2022-05-28 03:15:00 16 /min [facility] Oxygen saturation in 2022-05-28 03:15:00 98 /min [facility] Arterial blood by [facility] Pulse oximetry [place] Body temperature 2022-05-28 00:28:00 36.78 Briseida [facility] Body height 2022-05-28 00:28:00 170.2 cm [facility] Body weight 2022-05-28 00:28:00 72.576 kg [facility] BMI 2022-05-28 00:28:00 25.06 kg/m2 [facility] Systolic blood 2022-02-12 18:53:00 114 mm[Hg] Univer sity of pressure [facility] Diastolic blood 2022-02-12 18:53:00 78 mm[Hg] Unive rsity of pressure [facility] Heart rate 2022-02-12 18:48:00 89 /min [facility] Body temperature 2022-02-12 18:48:00 36.67 Briseida [facility] Respiratory rate 2022-02-12 18:48:00 18 /min [facility] Body height 2022-02-12 18:48:00 170.2 cm [facility] Body weight 2022-02-12 18:48:00 72.576 kg [facility] BMI 2022-02-12 18:48:00 25.06 kg/m2 [facility] Oxygen saturation in 2022-02-12 18:48:00 96 /min [facility] Arterial blood by [facility] Pulse oximetry [facility] Systolic blood 2021-11-05 23:35:00 158 mm[Hg] Univer sity of pressure [facility] Diastolic blood 2021-11-05 23:35:00 96 mm[Hg] Unive rsity of pressure [facility] Heart rate 2021-11-05 23:35:00 72 /min [facility] Body temperature 2021-11-05 23:35:00 36.67 Briseida [facility] Respiratory rate 2021-11-05 23:35:00 12 /min [facility] Oxygen saturation in 2021-11-05 23:35:00 100 /min [facility] Arterial blood by [place] [facility] Pulse oximetry [facility] Body height 2021-11-05 18:55:00 170.2 cm [facility] Body weight 2021-11-05 18:55:00 72.576 kg [facility] BMI 2021-11-05 18:55:00 25.06 kg/m2 [facility] Systolic blood 2021-11-05 18:38:00 85 mm[Hg] Univer sity of pressure [facility] Diastolic blood 2021-11-05 18:38:00 64 mm[Hg] Unive rsity of pressure [facility] Heart rate 2021-11-05 18:03:00 100 /min [facility] Body temperature 2021-11-05 18:03:00 36.78 Briseida [facility] Respiratory rate 2021-11-05 18:03:00 20 /min [facility] Body height 2021-11-05 18:03:00 170.2 cm [facility] Body weight 2021-11-05 18:03:00 72.576 kg [facility] BMI 2021-11-05 18:03:00 25.06 kg/m2 [facility] Oxygen saturation in 2021-11-05 18:03:00 100 /min [facility] Arterial blood by [facility] Pulse oximetry [facility] Systolic blood 2021-10-29 12:00:00 148 mm[Hg] Univer sity of pressure [facility] Diastolic blood 2021-10-29 12:00:00 58 mm[Hg] Unive rsity of pressure [facility] Heart rate 2021-10-29 12:00:00 92 /min [facility] Respiratory rate 2021-10-29 12:00:00 12 /min [facility] Oxygen saturation in 2021-10-29 12:00:00 100 /min [facility] Arterial blood by [place] [facility] Pulse oximetry [facility] Body temperature 2021-10-29 11:12:00 36.11 Briseida [facility] Body height 2021-10-29 11:12:00 170.2 cm [facility] Body weight 2021-10-29 11:12:00 72.576 kg [facility] BMI 2021-10-29 11:12:00 25.06 kg/m2 [facility] Systolic blood 2021-10-21 02:21:45 130 mm[Hg] Univer sity of pressure [facility] Diastolic blood 2021-10-21 02:21:45 68 mm[Hg] Unive rsity of pressure [facility] Body temperature 2021-10-21 02:21:45 37.22 Briseida [facility] Heart rate 2021-10-21 00:30:00 84 /min [facility] Oxygen saturation in 2021-10-21 00:30:00 98 /min [facility] Arterial blood by [place] [facility] Pulse oximetry [facility] Respiratory rate 2021-10-20 23:09:00 18 /min Univ ersity [facility] Body height 2021-10-20 21:10:00 170.2 cm Universi [facility] of [facility] Body weight 2021-10-20 21:10:00 72.576 kg Universi [facility] of [facility] BMI 2021-10-20 21:10:00 25.06 kg/m2 [facility] height 2021-10-12 09:30:00 63 [in_i] [facility] weight 2021-10-12 09:30:00 162 [lb_av] [facility] temperature 2021-10-12 09:30:00 98.3 [degF] [facility] bmi 2021-10-12 09:30:00 28.69 kg/m2 [facility] oximetry 2021-10-12 09:30:00 98 % [facility] respiratory rate 2021-10-12 09:30:00 16 /min [facility] blood pressure 2021-10-12 09:30:00 132 mm[Hg] [facility] - systolic [facility] blood pressure 2021-10-12 09:30:00 68 mm[Hg] [facility] diastolic [facility] Systolic blood 2021-08-26 18:00:00 157 mm[Hg] Univer sity of [facility] Diastolic blood 2021-08-26 18:00:00 97 mm[Hg] [facility] Heart rate 2021-08-26 18:00:00 87 /min [facility]i ty [facility] Respiratory rate 2021-08-26 18:00:00 18 /[facility] 2021-08-26 18:00:00 97 /min [facility] Arterial blood by [facility] Pulse oximetry Branch Body temperature 2021-08-26 13:42:00 37.11 Briseida [facility] Body weight 2021-08-26 13:42:00 70.308 kg [facility]i [facility] of [facility] BMI 2021-08-26 13:42:00 24.28 kg/m2 [facility] Systolic blood 2020-12-12 16:16:00 97 mm[Hg] Univer sity of pressure [facility] Diastolic blood 2020-12-12 16:16:00 67 mm[Hg] Unive rsity of pressure [facility] Heart rate 2020-12-12 16:16:00 97 /min [facility] Body temperature 2020-12-12 16:16:00 37.67 Briseida [facility] Respiratory rate 2020-12-12 16:16:00 18 /min [facility] Oxygen saturation in 2020-12-12 16:16:00 93 /min [facility] Arterial blood by [employer] Pulse oximetry [facility] Body weight 2020-12-12 [...] 98 /min [facility] Arterial blood by [facility] Pulse oximetry [facility] Body temperature 2020-07-14 [...] 2020-07-13 15:43:00 68 /min [facility] Oxygen saturation in 2020-07-13 15:43:00 95 /min [facility] Arterial blood by [facility] Pulse oximetry Branch Systolic blood 2020-07-07 04:00:00 142 mm[Hg] [facility] Diastolic blood 2020-07-07 04:00:00 94 mm[Hg] [facility] Heart rate 2020-07-07 04:00:00 73 /min [facility] Respiratory rate 2020-07-07 04:00:00 13 /min [facility] Oxygen saturation in 2020-07-07 04:00:00 99 /min [facility]terial blood by [facility] Pulse oximetry Branch Body temperature 2020-07-07 00:04:24 36.83 Briseida [facility] Body weight 2020-07-06 23:44:00 86.183 kg [facility] BMI 2020-07-06 23:44:00 29.76 kg/m2 [facility] Systolic blood 2020-07-04 21:16:00 142 mm[Hg] [facility] Diastolic blood 2020-07-04 21:16:00 93 mm[Hg] [facility] Heart rate 2020-07-04 21:16:00 72 /min [facility] Respiratory rate 2020-07-04 21:16:00 18 /min [facility] Oxygen saturation in 2020-07-04 21:16:00 97 /min [facility]terial blood by [facility] Pulse oximetry Branch Body temperature 2020-07-04 17:14:00 36.89 Briseida [facility] Body weight 2020-07-04 17:14:00 86.183 kg [facility] BMI 2020-07-04 17:14:00 29.76 kg/m2 [facility] Systolic blood 2020-06-28 20:07:00 110 mm[Hg] [facility] Diastolic blood 2020-06-28 20:07:00 67 mm[Hg] [facility] Heart rate 2020-06-28 20:07:00 57 /min [facility] Body temperature 2020-06-28 20:07:00 36.83 Briseida [facility] Respiratory rate 2020-06-28 20:07:00 16 /min [facility] Oxygen saturation in 2020-06-28 20:07:00 99 /min [facility] Arterial blood by [facility] bernadine Pulse oximetry Branch Body height 2020-06-27 03:02:00 170.2 cm [facility] Body weight 2020-06-27 03:02:00 83.008 kg [facility] BMI 2020-06-27 03:02:00 28.66 kg/m2 [facility] Systolic blood 2020-06-02 16:17:00 133 mm[Hg] [facility] Diastolic blood 2020-06-02 16:17:00 89 mm[Hg] [facility] Heart rate 2020-06-02 16:17:00 72 /min [facility] Body temperature 2020-06-02 16:17:00 36.17 Briseida [facility] Respiratory rate 2020-06-02 16:17:00 20 /min [facility] Oxygen saturation in 2020-06-02 16:17:00 96 /min [facility] Arterial blood by [facility] Pulse oximetry Branch Body height 2020-05-30 22:29:00 170.2 cm [facility] Body weight 2020-05-30 22:29:00 81.647 kg [facility] BMI 2020-05-30 22:29:00 28.19 kg/m2 [facility] Systolic blood 2020-05-27 02:05:00 118 mm[Hg] [facility] Diastolic blood 2020-05-27 02:05:00 73 mm[Hg] [facility] Heart rate 2020-05-27 02:05:00 80 /min [facility] Respiratory rate 2020-05-27 02:05:00 10 /min [facility] Oxygen saturation in 2020-05-27 02:05:00 93 /min [facility] blood by [facility] bernadine Pulse oximetry Branch Body temperature 2020-05-26 23:07:00 37.22 Briseida [facility] Body height 2020-05-26 23:07:00 170.2 cm [facility] Body weight 2020-05-26 23:07:00 88.451 kg [facility] BMI 2020-05-26 23:07:00 30.54 kg/m2 [facility] Systolic blood 2020-05-13 22:00:00 106 mm[Hg] [facility] Diastolic blood 2020-05-13 22:00:00 57 mm[Hg] [facility] Heart rate 2020-05-13 22:00:00 54 /min [facility] Respiratory rate 2020-05-13 22:00:00 16 /min [facility] Oxygen saturation in 2020-05-13 22:00:00 100 /min [facility]ial blood by [facility] Pulse oximetry Branch Body temperature 2020-05-13 16:33:00 37.56 Briseida [facility] Body weight 2020-05-13 16:33:00 77.111 kg [facility] BMI 2020-05-13 16:33:00 26.63 kg/m2 [facility] Systolic blood 2020-05-13 15:28:00 135 mm[Hg] [facility] Diastolic blood 2020-05-13 15:28:00 88 mm[Hg] [facility] Heart rate 2020-05-13 15:28:00 80 /min [facility] Body temperature 2020-05-13 15:28:00 36.67 Briseida [facility] Respiratory rate 2020-05-13 15:28:00 18 /min [facility] Body height 2020-05-13 15:28:00 170.2 cm [facility] Body weight 2020-05-13 15:28:00 77.111 kg [facility] BMI 2020-05-13 15:28:00 26.63 kg/m2 [facility] Oxygen saturation in 2020-05-13 15:28:00 99 /min [facility]ial blood by [facility] Pulse oximetry Branch Systolic blood 2020-03-23 15:48:00 130 mm[Hg] [facility] Diastolic blood 2020-03-23 15:48:00 89 mm[Hg] [facility] Heart rate 2020-03-23 15:48:00 95 /min [facility] Body height 2020-03-23 15:48:00 170.2 cm [facility] Body weight 2020-03-23 15:48:00 83.008 kg [facility] BMI 2020-03-23 15:48:00 28.66 kg/m2 [facility] Oxygen saturation in 2020-03-23 15:48:00 100 /min [facility] blood by [facility] Pulse oximetry Branch Systolic blood 2019-12-08 18:48:47 99 mm[Hg] [facility] Diastolic blood 2019-12-08 18:48:47 70 mm[Hg] [facility] Heart rate 2019-12-08 18:48:47 63 /min [facility] Respiratory rate 2019-12-08 18:48:47 18 /min [facility] Oxygen saturation in 2019-12-08 18:48:47 100 /min [facility] blood by [facility] Pulse oximetry Branch Body temperature 2019-12-08 16:07:00 37 Briseida [facility] Body height 2019-12-08 16:07:00 170.2 cm [facility] Body weight 2019-12-08 16:07:00 81.647 kg [facility] BMI 2019-12-08 16:07:00 28.19 kg/m2 [facility] Systolic blood 2019-12-08 15:11:00 119 mm[Hg] [facility] Diastolic blood 2019-12-08 15:11:00 80 mm[Hg] [facility] Heart rate 2019-12-08 15:11:00 83 /min [facility] Body temperature 2019-12-08 15:11:00 36.44 Briseida [facility] Respiratory rate 2019-12-08 15:11:00 18 /min [facility] Body weight 2019-12-08 15:11:00 82.827 kg [facility] BMI 2019-12-08 15:11:00 28.60 kg/m2 [facility] Procedures Procedure Date / Time Performing Clinician Source Performed CT ABDOMEN PELVIS WO 2022-05-28 01:32:42 Nabil Conway [facility] COMP. METABOLIC PANEL 2022-05-28 01:01:00 Nabil Conway [id number] CBC WITH DIFF 2022-05-28 01:01:00 [facility] URINALYSIS 2022-05-28 01:01:00 [facility] CONSENT/REFUSAL FOR 2022-05-28 00:18:54 Doctor Unassigned, [facility] DIAGNOSIS AND TREATMENT [facility] XR CHEST 2 VW 2022-02-12 19:22:00 Shireen Raza [facility] URINALYSIS 2021-11-05 20:20:00 Torey Kay [facility] MAGNESIUM 2021-11-05 19:47:00 Eliza [facility] TROPONIN I 2021-11-05 19:47:00 Eliza [facility] COMP. METABOLIC PANEL 2021-11-05 19:47:00 Torey Kay Joanie [facility] ([id number]) [facility] CBC WITH DIFF 2021-11-05 19:47:00 Eliza [facility] XR CHEST 1 VW 2021-11-05 19:36:08 Eliza [facility] CONSENT/REFUSAL FOR 2021-11-05 18:50:56 Doctor Unassdudley, [facility] DIAGNOSIS AND TREATMENT [facility] POCT MOLECULAR FLU 2021-11-05 18:20:00 Unknown, Attending [facility] POCT MOLECULAR STREP 2021-11-05 18:08:00 Unknown, Attending [facility] EKG-12 LEAD 2021-10-29 12:47:59 Charles Templeton [facility] CT CHEST PULMONARY 2021-10-29 11:57:27 Charles Templeton [facility] ANGIOGRAM Medical Branch COVID-19 (ID NOW RAPID 2021-10-29 11:38:00 Charles Templeton [facility] TESTING) Medical Branch LIPASE 2021-10-29 11:35:00 Charles Templeton [facility] TROPONIN I 2021-10-29 11:35:00 Charles Templeton [facility] COMP. METABOLIC PANEL 2021-10-29 11:35:00 Charles Templeton [facility] ([id number]) [facility] CBC WITH DIFF 2021-10-29 11:35:00 Charles Templeton [facility] PROTHROMBIN TIME / INR 2021-10-29 11:35:00 Charles [facility] ACTIVATED PARTIAL 2021-10-29 11:35:00 [facility] N-TERMINAL PRO-BNP 2021-10-29 11:35:00 Charles Templeton [facility] CONSENT/REFUSAL FOR 2021-10-29 11:05:40 Doctor Unassigned, [facility] DIAGNOSIS AND TREATMENT [facility] URINALYSIS 2021-10-21 00:48:00 Katherine Guerrero [facility] CT ANGIOGRAM 2021-10-21 00:27:00 Katherine Guerrero [facility] ABDOMEN/PELVIS [facility] Branch COMP. METABOLIC PANEL 2021-10-20 22:22:00 Katherine Guerrero [facility] ([id number]) [facility] CBC WITH DIFF 2021-10-20 22:22:00 Katherine Guerrero [facility] PROTHROMBIN TIME / INR 2021-10-20 22:22:00 Katherine Guerrero [facility] ACTIVATED PARTIAL 2021-10-20 22:22:00 Katherine Guerrero [facility] CONSENT/REFUSAL FOR 2021-10-20 20:49:49 Doctor Unabeverly [facility] DIAGNOSIS AND TREATMENT [facility] AUTHORIZATION FOR RELEASE 2021-09-15 05:01:00 Doctor Unassigned, [facility] ABDOMEN PELVIS W 2021-08-26 16:31:09 Torey Kay [facility] URINE DRUG (IMMUNOASSAY) 2021-08-26 15:26:00 Torey Kay [facility] SCREEN URINALYSIS 2021-08-26 15:26:00 Torey Kay [facility] XR CHEST 1 VW 2021-08-26 14:33:00 Torey Kay Joanie [facility] BLOOD CULTURE SCREEN 2021-08-26 14:21:00 Torey Kay [facility] BLOOD CULTURE SCREEN 2021-08-26 14:15:00 Torey Kay [facility] LIPASE 2021-08-26 14:15:00 Torey Kay [facility] MAGNESIUM 2021-08-26 14:15:00 Torey Kay Joanie [facility] TROPONIN I 2021-08-26 14:15:00 Torey Kay [facility] COMP. METABOLIC PANEL 2021-08-26 14:15:00 Torey Kay [facility] ([id number]) [facility] CBC WITH DIFF 2021-08-26 14:15:00 Torey Kay Joanie [facility] AC PANEL 21 + LACTIC ACID 2021-08-26 14:14:00 [facility]REFUSAL FOR 2021-08-26 13:50:45 [facility] DIAGNOSIS AND TREATMENT [facility] PHOSPHORUS 2020-12-12 10:06:00 shakir [facility] MAGNESIUM 2020-12-12 10:06:00 [facility] BASIC METABOLIC PANEL 2020-12-12 10:06:00 Nehemias [facility] (NA, K, CL, CO2, GLUCOSE, Medica l Branch BUN, CREATININE, CA) VANCOMYCIN RANDOM LEVEL 2020-12-11 14:30:00 Nasir Fowler [facility] OSMOLALITY URINE 2020-12-11 10:41:00 Nicole Sanchez [facility] CREATININE, URINE RANDOM 2020-12-11 10:39:00 Nicole Sanchez Un [facility] POTASSIUM, URINE RANDOM 2020-12-11 10:39:00 Nicole Sanchez Uni [facility] SODIUM, URINE RANDOM 2020-12-11 10:39:00 Nicole Sanchez [facility] PHOSPHORUS 2020-12-11 08:50:00 Sandrita [facility] URIC ACID 2020-12-11 08:50:00 Nicole Sanchez [facility] MAGNESIUM 2020-12-11 08:50:00 Sandrita [facility] OSMOLALITY, SERUM OR 2020-12-11 08:50:00 Nicole Sanchez [facility] BASIC METABOLIC PANEL 2020-12-11 08:50:00 [facility] ([facility], K, CL, CO2, GLUCOSE, Medica l Branch BUN, CREATININE, CA) CBC WITH DIFF 2020-12-11 08:50:00 Nasir Fowler [facility] URINALYSIS 2020-12-10 20:31:00 Janeth [facility] URINE CULTURE 2020-12-10 20:31:00 Janeth Nasir [facility] BLOOD CULTURE SCREEN 2020-12-10 17:58:00 Nasir Fowler [facility] BLOOD CULTURE SCREEN 2020-12-10 17:51:00 Janeth Nasir [facility] PHOSPHORUS 2020-12-10 17:50:00 [facility] 2020-12-10 17:50:00 Nicole Sanchez [facility] (NA, K, CL, CO2, GLUCOSE, Medica l Branch BUN, CREATININE, CA) CBC WITH DIFF 2020-12-10 17:49:00 [facility] XR CHEST 1 VW 2020-12-10 17:21:04 Janeth [facility] VANCOMYCIN TROUGH 2020-12-10 14:44:00 Sandrita [facility] PHOSPHORUS 2020-12-10 10:29:00 Sandrita [facility] MAGNESIUM 2020-12-10 10:29:00 [facility] BASIC METABOLIC PANEL 2020-12-10 10:29:00 Sandrita [facility] (NA, K, CL, CO2, GLUCOSE, Medica [facility] Branch BUN, CREATININE, CA) BASIC METABOLIC PANEL 2020-12-10 00:50:00 Nicole Sanchez [facility] (NA, K, CL, CO2, GLUCOSE, Medica [facility] Branch BUN, CREATININE, CA) VANCOMYCIN TROUGH 2020-12-09 19:02:00 Sandrita [facility] PHOSPHORUS 2020-12-09 09:58:00 Sandrita [facility] MAGNESIUM 2020-12-09 09:58:00 Sandrita [facility] BASIC METABOLIC PANEL 2020-12-09 09:58:00 Sandrita [facility] (NA, K, CL, CO2, GLUCOSE, Medica l Branch BUN, CREATININE, CA) CT ABDOMEN PELVIS W 2020-12-08 17:35:25 Lesley Jay [facility] PHOSPHORUS 2020-12-08 09:38:00 Sandrita [facility] MAGNESIUM 2020-12-08 09:38:00 Sandrita [facility] BASIC METABOLIC PANEL 2020-12-08 09:38:00 Sandrita [facility] (NA, K, CL, CO2, GLUCOSE, Medica l Branch BUN, CREATININE, CA) VANCOMYCIN TROUGH 2020-12-08 06:35:00 Sandrita [facility] TRANSTHORACIC ECHO (TTE) 2020-12-07 18:35:00 Nasir Fowler [facility] MAGNESIUM 2020-12-07 09:59:00 [facility] BASIC METABOLIC PANEL 2020-12-07 09:59:00 [facility] (NA, K, CL, CO2, GLUCOSE, Medica l Branch BUN, CREATININE, CA) CBC WITH DIFF 2020-12-07 09:59:00 [facility] BASIC METABOLIC PANEL 2020-12-07 02:15:00 [facility] (NA, K, CL, CO2, GLUCOSE, Medica l Branch BUN, CREATININE, CA) MAGNESIUM 2020-12-06 15:50:00 Nick Garcia [facility] BASIC METABOLIC PANEL 2020-12-06 15:50:00 [facility] (NA, K, CL, CO2, GLUCOSE, Medica [facility] Branch BUN, CREATININE, CA) CBC WITH DIFF 2020-12-06 15:50:00 [facility] MAGNESIUM 2020-12-05 22:29:00 [facility] BASIC METABOLIC PANEL 2020-12-05 22:29:00 Alecia Eagle [facility] (NA, K, CL, CO2, GLUCOSE, Medica l Branch BUN, CREATININE, CA) CT HEAD WO CONTRAST 2020-12-05 20:11:36 Alecia Eagle [facility] POCT GLUCOSE(AGE >30DAYS) 2020-12-05 19:44:00 Alecia Eagle [facility] POCT TEST 2020-12-05 18:53:00 Alecia Eagle [facility] URINE DRUG (IMMUNOASSAY) 2020-12-05 18:49:00 [facility] SCREEN URINALYSIS 2020-12-05 18:49:00 Alecia Eagle [facility] URINE CULTURE 2020-12-05 18:49:00 Alecia Eagle [facility] EXTRA TUBE LT. BLUE 2020-12-05 18:49:00 Alecia Eagle [facility] XR CHEST 1 VW 2020-12-05 18:44:56 Alecia Eagle [facility] COVID-19 (ID NOW RAPID 2020-12-05 18:39:00 Alecia Eagle [facility] TESTING) [facility] [place] LAB ONLY COVID 2020-12-05 18:39:00 Alecia Eagle [facility] INTERPRETATION [facility] BLOOD CULTURE SCREEN 2020-12-05 18:35:00 Alecia Eagle [facility] 2020-12-05 18:35:00 Alecia Eagle [facility] MAGNESIUM 2020-12-05 18:35:00 Alecia Eagle [facility] TROPONIN I 2020-12-05 18:35:00 Alecia Eagle [facility] THYROID STIMULATING 2020-12-05 18:35:00 Alecia Eagle [facility] HORMONE [facility] COMP. METABOLIC PANEL 2020-12-05 18:35:00 Alecia Eagle [facility] ([id number]) [facility] CBC WITH DIFF 2020-12-05 18:35:00 Alecia Eagle [facility] LACTIC ACID WHOLE BLOOD 2020-12-05 18:34:00 Alecia Eagle [facility] AC PANEL 20 + LACTIC ACID 2020-12-05 18:34:00 Alecia Eagle U [facility] HB ECG ROUTINE & RHYTHM 2020-12-05 18:24:21 Alecia Eagle [facility] PHYSICIAN ORDERS 2020-09-09 05:01:00 [facility] CBC WITH DIFF 2020-08-09 17:14:00 Luisa [facility] URINALYSIS 2020-08-09 17:14:00 [facility] RHEUMATOID FACTOR 2020-08-09 17:14:[address] [facility] C-REACTIVE PROTEIN 2020-08-09 17:14:00 [facility] COMP. METABOLIC PANEL 2020-08-09 17:14:00 Leigh Moran [facility] ([id number]) [facility] [place] SEDIMENTATION RATE 2020-08-09 17:14:00 Luisa [facility] ANTI-SSB(LA) 2020-08-09 17:14:00 Luisa [facility] ADC OR LEXX ONLY - RPR 2020-08-09 17:14:00 [facility]/2 AG-AB WITH REFLEX 2020-08-09 17:14:00 [facility] OF BENEFITS 2020-08-09 16:41:17 Doctor Unassigned, [facility] Name [facility] BODY FLUID DIRECT COUNT 2020-07-14 20:10:00 Hansel Kennedy [facility] CSF CULTURE 2020-07-14 20:10:00 Hansel Kennedy [facility] CEREBROSPINAL FLUID 2020-07-14 20:09:00 Hansel Kennedy [facility] PROTEIN [facility] CEREBROSPINAL FLUID 2020-07-14 20:09:00 Hansel Kennedy [facility] GLUCOSE [facility] EXTRA TUBE CSF 2020-07-14 20:09:00 Hansel Kennedy [facility] MENINGITIS/ENCEPHALITIS 2020-07-14 20:09:00 Hansel Kennedy [facility] PANEL BY PCR [facility] POCT GLUCOSE (AUTOMATED) 2020-07-14 14:55:00 Treva Ro[facility]epreston [facility] MAGNESIUM 2020-07-14 13:11:00 Hansel Kennedy [facility] PHOSPHORUS 2020-07-14 13:10:00 Tito [facility] XR CHEST 1 VW 2020-07-14 13:06:38 Hansel Kennedy [facility] URINALYSIS 2020-07-14 09:32:00 Bhaskar Reyna [facility] COVID-19 (ID NOW RAPID 2020-07-14 09:25:00 Bhaskar Reyna [facility] TESTING) Medical Branch C-REACTIVE PROTEIN 2020-07-14 01:10:00 Bhaskar Reyna [facility] HEPATIC FUNCTION PANEL 2020-07-14 01:10:00 Bhaskar Reyna [facility] ([id number]) (ALB,T.PRO,BILI Medical Branch T,BU/BC,ALT,AST,ALK PHOS) BASIC METABOLIC PANEL 2020-07-14 01:10:00 Bhaskar Reyna [facility] (NA, K, CL, CO2, GLUCOSE, Medica [facility] Branch BUN, CREATININE, CA) SEDIMENTATION RATE 2020-07-14 01:10:00 Bhaskar Reyna [facility] CBC WITH DIFF 2020-07-14 01:10:00 Bhaskar Reyna [facility] AUTHORIZATION FOR RELEASE 2020-07-08 05:01:00 Doctor Unassigned, [facility] REFERRAL- 2020-07-07 05:01:00 Doctor [place], [facility] REQUEST/RESPONSE [facility] CBC WITH DIFF 2020-07-07 03:16:00 Alecia Eagle [facility] NOTICE OF PRIVACY 2020-07-06 23:35:30 Doctor [place], [facility] PRACTICES [facility] CONSENT/REFUSAL FOR 2020-07-06 23:35:07 Doctor [place], [facility] DIAGNOSIS AND TREATMENT [facility] CT HEAD WO CONTRAST 2020-07-04 19:42:39 Lety Noriega [facility] LIPASE 2020-07-04 18:56:00 Lety Noriega [facility] COMP. METABOLIC PANEL 2020-07-04 18:56:00 Lety Noriega [facility] ([id number]) Medical Branch CBC WITH DIFF 2020-07-04 18:56:00 Lety Noriega [facility] URINALYSIS 2020-07-04 18:56:00 [facility] CONSENT/REFUSAL FOR 2020-07-04 17:04:54 Doctor Unassigned, [facility] DIAGNOSIS AND TREATMENT [facility] TROPONIN I 2020-06-27 16:14:00 Michael [facility] MR BRAIN WO CONTRAST 2020-06-27 10:20:11 Jose Cintron [facility] COVID-19 (ID NOW RAPID 2020-06-26 22:32:00 [facility] TESTING) [facility] [place] CT ANGIOGRAM HEAD 2020-06-26 22:14:19 [facility] CT ANGIOGRAM NECK 2020-06-26 22:14:19 [facility] CT HEAD WO CONTRAST 2020-06-26 22:02:20 [facility] 2020-06-26 21:28:00 Tung [facility] XR CHEST 1 VW 2020-06-26 20:27:04 [facility] 2020-06-26 20:24[facility] 2020-06-26 20:24:00 Tung [facility] ([id number]) (ALB,T.PRO,BILI [facility] [place] T,BU/BC,ALT,AST,ALK PHOS) BASIC METABOLIC PANEL 2020-06-26 20:24:00 Sabrina Ruby [facility] (NA, K, CL, CO2, GLUCOSE, Medica l Branch BUN, CREATININE, CA) SEDIMENTATION RATE 2020-06-26 20:24:00 Sabrina Ruby [facility] CBC WITH DIFF 2020-06-26 20:24:00 [facility]OUT[facility] & RHYTHM 2020-06-26 20:16:57 Sabrina Ruby [facility] CONSENT/REFUSAL FOR 2020-06-26 20:02:52 Doctor Unassigned, [facility] DIAGNOSIS AND TREATMENT [facility] COMP. METABOLIC PANEL 2020-06-01 09:54:00 Zenaida Rodrigez [facility] ([id number]) [facility] BASIC METABOLIC PANEL 2020-05-31 14:36:00 Cade Hernadez [facility] (NA, K, CL, CO2, GLUCOSE, Medica l Branch BUN, CREATININE, CA) CBC WITH DIFF 2020-05-31 12:26:[facility]EL[facility] W WO 2020-05-30 20:49:43 Katherine Guerrero [facility] BLOOD CULTURE SCREEN 2020-05-30 20:16:00 Katherine Guerrero [facility] LACTIC ACID WHOLE BLOOD 2020-05-30 20:15:00 Katherine Guerrero [facility] URINALYSIS 2020-05-30 20:14:00 Katherine Guerrero [facility] HEPATIC FUNCTION PANEL 2020-05-30 20:13:00 Katherine Guerrero [facility] ([id number]) (ALB,T.PRO,BILI Medical Branch T,BU/BC,ALT,AST,ALK PHOS) BASIC METABOLIC PANEL 2020-05-30 20:13:00 Katherine Guerrero [facility] (NA, K, CL, CO2, GLUCOSE, Medica l Branch BUN, CREATININE, CA) CBC WITH DIFF 2020-05-30 20:13:00 Katherine Guerrero [facility] PROTHROMBIN TIME / INR 2020-05-30 20:13:00 Katherine Guerrero [facility] ACTIVATED PARTIAL 2020-05-30 20:13:00 Katherine Guerrero [facility] THRMPLAS [facility] Branch COVID-19 (ID NOW RAPID 2020-05-30 20:13:00 Katherine Guerrero [facility] TESTING) Medical Branch LAB ONLY COVID 2020-05-30 20:13:00 Katherine Guerrero [place] [facility] [place] INTERPRETATION [facility] BLOOD CULTURE SCREEN 2020-05-30 20:09:00 Katherine Guerrero [facility] CONSENT/REFUSAL FOR 2020-05-30 19:22:16 Doctor Unassdudley, [facility] DIAGNOSIS AND TREATMENT [facility] URINALYSIS 2020-05-27 00:16:00 Umm Mares [facility] HEPATIC FUNCTION PANEL 2020-05-26 23:25:00 Umm Mares [facility] ([id number]) (ALB,T.PRO,BILI Medical Branch T,BU/BC,ALT,AST,ALK PHOS) BASIC METABOLIC PANEL 2020-05-26 23:25:00 Umm Mares [facility] (NA, K, CL, CO2, GLUCOSE, Medica l Branch BUN, CREATININE, CA) CBC WITH DIFF 2020-05-26 23:25:00 Umm Mares [facility] CONSENT/REFUSAL FOR 2020-05-26 22:59:39 Doctor Unabeverly, [facility] DIAGNOSIS AND TREATMENT [facility] URINALYSIS 2020-05-13 18:34:00 Dottie Troncoso [facility] CT ABDOMEN PELVIS W 2020-05-13 17:26:18 Dottie Troncoso [facility] CONTRAST [facility] Branch LIPASE 2020-05-13 16:47:00 Dottie Troncoso [facility] HEPATIC FUNCTION PANEL 2020-05-13 16:47:00 Dottie Troncoso [facility] ([id number]) (ALB,T.PRO,BILI Medical Branch T,BU/BC,ALT,AST,ALK PHOS) BASIC METABOLIC PANEL 2020-05-13 16:47:00 Dottie Troncoso [facility] (NA, K, CL, CO2, GLUCOSE, Medica l Branch BUN, CREATININE, CA) CBC WITH DIFF 2020-05-13 16:47:00 Dottie Troncoso [facility] NOTICE OF PRIVACY 2020-05-13 16:27:55 Doctor Unassdudley, [facility] [place] CONSENT/REFUSAL FOR 2020-05-13 16:23:10 Doctor [place], [facility] DIAGNOSIS AND TREATMENT [facility] [place] EXTERNAL PROVIDER RECORDS 2019-12-10 05:01:00 Doctor [place], [facility] [place] US ABDOMEN LIMITED 2019-12-08 18:04:34 Lesley Bee [facility] XR CHEST 1 VW 2019-12-08 17:33:32 Lesley Bee [facility] CT ABDOMEN PELVIS WO 2019-12-08 16:24:35 Lesley Bee [facility] CONTRAST [facility] COMP. METABOLIC PANEL 2019-12-08 16:15:00 Lesley Bee [facility] ([id number]) Medical Branch CBC WITH DIFF 2019-12-08 16:15:00 Lesley Bee [facility] URINALYSIS 2019-12-08 16:13:00 Lesley Bee [facility] POCT TEST 2019-12-08 16:12:00 Lesley Bee [facility] NOTICE OF PRIVACY 2019-12-08 15:46:34 Doctor [place], [facility] [place] CONSENT/REFUSAL FOR 2019-12-08 15:46:19 Doctor Georgia [facility] DIAGNOSIS AND TREATMENT [facility] POCT URINALYSIS AUTO 2019-12-08 15:09:00 Abhijit Mcgowan [facility] PHYSICIAN CERTIFICATION 2019-09-29 05:01:00 Doctor Shruti Ho [facility] STATEMENT [facility] Medical Branch AGREEMENTS AUTHORIZATIONS 2019-03-28 06:01:00 Doctor [place], [facility] AND IRREVOCABLE [facility] [place] ASSIGNMENTS (FORM 2001) Plan of Care Planned Activity Planned Date Details Comments Source Future Scheduled 2023-10-26 Lipid panel (procedure) [facility] Test 00:00:00 [code = 44194714] Medical Ce nter Future Scheduled 2021-10-13 INFLUENZA VACCINE (#1) [facility] 00:00:00 [code = INFLUENZA Medical Ce nter VACCINE (#1)] Future Scheduled 1996-05-19 Screening for malignant [facility] Test 00:00:00 neoplasm of cervix Medical C enter (procedure) [code = 427189211] Future Scheduled 1994-05-19 DTAP/TDAP/TD VACCINES [facility] 00:00:00 [code = CT Colonography [facility] (combo)] Future Scheduled 1975 Screening for malignant [facility] Test 00:00:00 neoplasm of colon Medical Ce nter (procedure) [code = 315196260] Future Scheduled 1975 Screening for malignant [facility] Test 00:00:00 neoplasm of colon Medical Ce nter (procedure) [code = 214039552] Future Scheduled 1975 Screening for malignant [facility] Test 00:00:00 neoplasm of colon Medical Ce nter (procedure) [code = 064639034] Future Scheduled 1975 Screening for malignant [facility] Test 00:00:00 neoplasm of colon Medical Ce nter (procedure) [code = 369541747] Future Scheduled 1975 Sigmoidoscopy [code = [facility] 00:[facility] Sigmoidoscopy] Medical Cente r Encounters Start End Encounter Admission Attending Care Care Encounter Source Date/Time Date/Time Type Type Clinicians Facility Department ID 2021-10-24 Outpatient Nick Fallon [facility] [id number] Common 13:29:00 [id number] [facility] 2021-09-19 Outpatient Nick Fallon [facility] [id number] Common 14:12:01 [facility] 2021-03-09 Outpatient Hernandez, [facility] [id number] Common 13:01:40 Levy [id number] [facility] 2021-03-09 Outpatient Hernandez [facility] [id number] Common 13:01:30 Levy [id number] [facility] 2020-12-[address] [facility] [id number] Univers 22:28:[address] [facility] 2020-12-[address] [facility] [id number] Univers 21:17:[address] [facility] 2020-12-[address] [facility] [id number] Univers 20:44:10 ity of [facility] 2020-12-[address] [facility] [id number] Univers 13:38:38 ity of [facility] 2020-12-[address] [facility] [id number] Univers 12:59:09 ity of [facility] 2020-12-[address] [facility] [id number] Univers 10:04:[address] [facility] 2020-12-[address] [facility] [id number] Univers 01:01:[address] [facility] 2022-05-27 2022-05-27 Emergency X [facility] ERT [id number] Univers 19:35:00 22:34:[address] [facility] 2022-05-27 2022-05-27 Emergency [facility] 1.2.373.800 [id number] Univers 19:35:00 22:34:00 Nabil VELASCO 350.1.13.10 i ty [facility] 4.2.7.2.686 [facility] [phone] [place] [address] Branch 2022-05-27 2022-05-27 Orders Doctor COTA 1.2.840.114 [id number] Univers 00:00:00 00:00:00 Only Unassigned, KATIE 350.1.13.10 ity of [place] 4.2.7.2.686 [place] as [phone] [facility] 009 Branch 2022-02-12 2022-02-[address] [facility] [id number] Univers 13:05:15 23:59:00 SHIREEN ity of [facility] 2022-02-12 2022-02-12 [facility] 1.2.840.114 [id number] Univers 13:05:15 23:59:00 [facility] 350.1.13.10 ity of [place] 4.2.7.2.686 [place]ar as GEORGINA?BLEA [phone] [facility] [address] [place] MEDICAL OFFICE [facility] 2022-02-12 2022-02-12 Urgent Ry [facility] 1.2.840.114 [id number] Univers 12:40:00 13:44:52 Care Unknown, Attending HEALTH 350.1.13.10 ity of [place] 4.2.7.2.686 [place] as GEORGINA?BLEA [phone] [facility] [address] [facility] OFFICE [facility] 2022-02-12 2022-02-12 [place] [facility] 1.2.826.789 [id number] Univers 00:00:00 00:00:00 Shireen [facility] 350.1.13.10 it y of [place] 4.2.7.2.686 [place] as GEORGINA?BLEA [phone] [facility] [address] [place] MEDICAL OFFICE [facility] 2021-11-05 2021-11-05 Emergency X oTrey KAY [facility] ERT [id number] Univers 13:57:00 18:42:00 ity of [facility] 2021-11-05 2021-11-05 Emergency Torey Kay [facility] 1.2.840.114 [id number] Univers 13:57:00 18:42:00 Joanie KRISTA 350.1.13.10 i ty of [place] [phone] [facility] [address] [place] 2021-11-05 2021-11-05 Urgent Anum Garay [facility] 1.2.840.114 [id number] Univers 13:00:00 13:20:00 Care Unknown, Attending HEALTH 350.1.13.10 ity natalia [place] 4.2.7.2.686 [place] as GEORGINA?BLEA [phone] Ct nory [address] MEDICAL OFFICE BUILDING 2021-11-05 2021-11-[address] [facility] [id number] Univers 13:00:00 13:00:00 ANUM [facility] 2021-10-29 2021-10-29 Emergency X [facility] [id number] Univers 06:06:00 08:18:[address] [facility] 2021-10-29 2021-10-29 Emergency [facility] 1.2.496.740 [id number] Univers 06:06:00 08:18:00 Charles VELASCO 350.1.13.10 ity [facility] 4.2.7.2.686 [facility] [phone] [address] 2021-10-20 2021-10-20 Emergency X SHAGUFTA [facility] ERT [id number] Univers 16:11:00 21:33:00 ALECIA [facility] 2021-10-20 2021-10-20 Emergency Katherine Guerrero [facility] 1.2.840. 114 [id number] Univers 16:11:00 21:33:00 MaureenDon cunninghamprerna [facility] 350.1.13.10 ity [facility] 4.2.7.2.686 [facility] [phone] [address] 2021-10-18 2021-10-18 (TEL) STLC STLC [id number] Co mmon 00:00:00 00:00:00 Spirit - CH[facility] 2021-10-12 2021-10-12 OFFICE STLMLC STLMLC [id number] Co mmon 00:00:00 00:00:00 VISIT Spirit ESTAB PT - CHI LEVEL 5 [facility] 2021-09-26 2021-09-26 (TEL) STLC STLMLC [id number] Co mmon 00:00:00 00:00:00 Spirit - [facility] 2021-09-19 2021-09-19 [facility] [id number] Co mmon 00:00:00 00:00:00 VISIT NEW Spir it PT LEVEL 3 - CHI [facility] 2021-09-15 2021-09-15 Orders Doctor CIPRIANO 1.2.840.114 [id number] Univers 00:00:00 00:00:00 Only Unassigned, KATIE 350.1.13.10 [facility] 4.2.7.2.686 [place] [phone] [facility] 009 Branch 2021-08-26 2021-08-26 Emergency X Torey KAY [facility] ERT [id number] Univers 08:39:00 14:03:00 ity of [facility] 2021-08-26 2021-08-26 Emergency Torey Kay [facility] 1.2.840.114 [id number] Univers 08:39:00 14:03:00 Joanie VELASCO 350.1.13.10 i ty of [place].7.[place] [phone] [facility] 084 Branch 2021-03-08 2021-03-08 Daniela Fisher [facility] 1.2.840.114 [id number] Univers 00:00:00 00:00:00 Johnson VELASCO 350.1.13.10 ity of [place] PROF[place] [phone] Ct dical NAL 092 Branch BUILDING 2020-12-23 2020-12-[address] [facility] [id number] Univers 00:00:00 00:00:00 ity of [facility] 2020-12-14 2020-12-14 Transition FILEMON Redman 1.2.840.114 [id number] Univers 00:00:00 00:00:00 of Care Josselin LEWIS 350.1.13.10 i ty of [place]2.[place].2.[place] [phone] [facility] 403 Branch 2020-12-05 2020-12-12 Inpatient X SANDRITA [facility] [id number] Univers 13:25:00 15:45:[address] [facility] 2020-12-05 2020-12-12 [facility] Alecia Eagle [facility] 1.2.840. 114 [id number] Univers 13:25:00 15:45:00 Encounter Ad Remy [facility] 350.1.13.10 ity of [place]2.7.2.[place] [phone] [address] 2020-11-01 2020-11-01 Refill Lavon [facility] 1.2.840.114 [id number] Univers 00:00:00 00:00:00 [facility] 350.1.13.10 i ty of [place] 4.2.7.2.686 T sudha Camilo [place] [phone] [place] [address] Branch Office Building 2020-10-12 2020-10-12 Refsherron FisherNEW [facility] 1.2.840.114 [id number] Univers 00:00:00 00:00:00 Johnson Velasco 350.1.13.10 ity of [place] Professio [phone] Ct dichi nal 092 Branch [facility] 2020-10-07 2020-10-07 General Labor Anni, Ny Lab Main [facility] 1.2.8 40.114 [id number] Univers 10:29:15 10:44:15 Visit Anish Carrera 350.1.13.10 ity of [place].7.2.[place] Professio [phone] Ct dical nal 353 Branch Building 2020-10-07 2020-10-[address] [facility] [id number] Univers 10:30:00 10:30:[address] [facility] 2020-09-10 2020-09-10 Refsherron Doll [facility] 1.2.840.114 [id number] Univers 00:00:00 00:00:00 [facility] 350.1.13.10 i ty of [place] 4.2.7.2.686 T roxy Baez [phone] [place] [address] [place] Office Building 2020-09-09 2020-09-09 Orders Doctor CIPRIANO 1.2.840.114 [id number] Univers 00:00:00 00:00:00 Only Unassigned, KATIE 350.1.13.10 ity of [facility] 4.2.7.2.686 [place] as [phone] [facility] 009 Branch 2020-09-06 2020-09-06 Telephone CIPRIANO Machado 1.2.872.041 [id number] Univers 00:00:00 00:00:00 Elsailaja WILSON 350.1.13.10 i ty of HOSPITAL 4.2.7.2.686 [place] as [phone] [facility] [address] [place] 2020-08-13 2020-08-13 Refill [facility] 1.2.840.114 [id number] Univers 00:00:00 00:00:00 [facility] 350.1.13.10 i ty of [place] 4.2.7.2.686 T roxy Camilo Baez [phone] [address] Office Building 2020-08-09 2020-08-[address] [facility] [id number] Univers 12:00:00 12:00:[address] [facility] 2020-08-09 2020-08-09 General Labor Anni, Ny Lab Main [facility] 1.2.8 40.114 [id number] Univers 11:42:15 11:57:15 Visit Anish Carrera 350.1.13.10 ity of [place]2.7.2.[place] essio [phone] Ct dical [facility] 353 Branch Building 2020-08-09 2020-08-09 Orders Doctor CIPRIANO 1.2.840.114 [id number] Univers 00:00:00 00:00:00 Only Unassigned, KATIE 350.1.13.10 ity of [facility] 4.2.7.2.686 [place] [phone] [facility] 009 Branch 2020-07-13 2020-07-14 Emergency Aufderheide, Shi Melvin TRAUMA 1.2.840.114 [id number] Univers 15:14:00 19:27:00 Christina Roque [place] 350.1.13.10 it[place] [id number] [facility] 014 Branch 2020-07-13 2020-07-13 Office Castillo [facility] 1.2.840.114 [id number] Univers 09:44:58 11:19:02 Visit Johnson Velasco 350.1.13.10 ity of [place].2.7.2.[place] Profess[place] [phone] [facility] 092 Branch [facility] 2020-07-13 2020-07-13 Outpatient R JOHNSON FISHER [facility] [id number] Univers 09:40:00 09:40:00 JOHNSON FISHER ity of [facility] 2020-07-13 2020-07-13 Letter CIPRIANO Hernandez 1.2.840.114 [id number] Univers 00:00:00 00:00:00 (Out) Fercho WILSON 350.1.13.10 ity of HOSPITAL 4.2.7.2.686 [place] [phone] [facility] 043 Branch 2020-07-08 2020-07-08 Orders Doctor COTA 1.2.840.114 [id number] Univers 00:00:00 00:00:00 Only UnassignedKATIE 350.1.13.10 ity of [facility] 4.2.7.2.686 [place] [phone] [facility] 009 Branch 2020-07-07 2020-07-07 Orders Doctor COTA 1.2.840.114 [id number] Univers 00:00:00 00:00:00 Only UnassignedKATIE 350.1.13.10 ity of [facility] 4.2.7.2.686 [place] as [phone] [facility] 009 Branch 2020-07-07 2020-07-07 Telephone Zackery [facility] 1.2.622.648 [id number] Univers 00:00:00 00:00:00 Angy PRIMARY 350.1.13.10 it y of [place].2.7.2.[place] [phone] Ct dical 086 Branch 2020-07-06 2020-07-06 Emergency [facility] 1.2.549.778 [id number] Univers 18:48:00 23:59:00 Alecia Velasco 350.1.13.10 ity of [place].2.[place] Ce[place] [phone] [facility] 084 Branch 2020-07-04 2020-07-04 Emergency HuntermariisainikiaNEW [facility]EX[facility] 1.2.840.114 [id number] Univers 12:16:00 18:32:00 Lety Fátima Krista 350.1.13.10 ity of [place].7.2.[place] [phone] [facility] 084 Branch 2020-06-26 2020-06-28 Emergency Sabrina Ruby 1.2.840 .114 [id number] Univers 15:08:00 18:15:00 Caio Hernandez 350.1.13.10 ity of [facility] 4.2.7.2.686 [place] [phone] [facility] 098 Branch 2020-06-26 2020-06-28 Outpatient X DAVID [facility] JYOTHI [id number] Univers 15:08:00 18:15:00 CAIO mccall o f [facility] 2020-06-28 2020-06-28 Telephone [facility]NEW [facility] 1.2.840.114 [id number] Univers 00:00:00 00:00:00 Johnson Velasco 350.1.13.10 ity of [place].2.7.2.[place] Professio [phone] Ct dical nal 092 Branch [facility] 2020-06-22 2020-06-22 Outpatient ST[facility] [id number] Common 00:00:00 00:00:00 [facility] 2020-05-30 2020-06-02 Emergency Katherine Guerrero [facility] 1.2.840. 114 [id number] Univers 14:32:00 11:50:00 Ad Remy 350.1.13.10 ity of Cade Hernadez 4.2.7.2.686 [facility] [phone] [place] [address] [place] 2020-05-31 2020-05-31 Outpatient R JUAN M [facility] [id number] Univers 09:45:00 09:45:00 ABHIJIT ity of [facility] 2020-05-26 2020-05-26 Emergency [facility] 1.2.529.352 [id number] Univers 18:10:00 21:41:00 Umm Velasco 350.1.13.10 ity of [place] 4.2.7.2.686 [facility] [phone] [address] 2020-05-26 2020-05-26 Orders Doctor COTA 1.2.840.114 [id number] Univers 00:00:00 00:00:00 Only Unassigned, KATIE 350.1.13.10 ity of [facility] 4.2.7.2.686 [place] [phone] [address] 2020-05-13 2020-05-13 Emergency [facility] 1.2.840.114 [id number] Univers 11:30:00 17:34:00 Dottie Velasco 350.1.13.10 ity of [place] 4.2.7.2.686 [facility] [phone] [address] 2020-05-13 2020-05-13 Urgent Provider, [facility] 1.2.840.114 [id number] Univers 10:10:06 11:10:27 Care Sarah Orantes 350.1.13.10 ity of [place] 4.2.7.2.686 [place] Professio [phone] [address] Office Building One 2020-05-13 2020-05-[address] [facility] [id number] Univers 11:00:00 11:00:00 SARAH mccall of [facility] 2020-05-13 2020-05-13 Orders Doctor COTA 1.2.840.114 [id number] Univers 00:00:00 00:00:00 Only Unassigned, KATIE 350.1.13.10 ity of [facility] 4.2.7.2.686 [place] [phone] [address] 2020-04-19 2020-04-19 Refill [facility] 1.2.840.114 [id number] Univers 00:00:00 00:00:00 Johnson Velasco 350.1.13.10 ity of [place] [phone] [address] 2020-04-09 2020-04-09 Refill [facility]NEW [facility] 1.2.840.114 [id number] Univers 00:00:00 00:00:00 Johnson Velasco 350.1.13.10 ity of [place].2.[place] [phone] [address] 2020-03-23 2020-03-23 Office Castillo [facility] 1.2.840.114 [id number] Univers 09:29:15 10:11:33 Visit Johnson Velasco 350.1.13.10 ity of [place] 4[place]2.7.2.[place] [phone] [address] 2020-03-23 2020-03-23 Outpatient R JOHNSON FISHER [facility] [id number] Univers 09:20:00 09:20:[address] [facility] 2020-03-15 2020-03-15 Refsherron FisherNEW [facility]EX[facility] 1.2.840.114 [id number] Univers 00:00:00 00:00:00 Johnson Velasco 350.1.13.10 ity of [place] 4[place] [phone] [address] 2019-12-10 2019-12-10 Orders Doctor COTA 1.2.840.114 [id number] Univers 00:00:00 00:00:00 Only Unassigned, KATIE 350.1.13.10 ity of [facility] 4.2.7.2.686 [place] [phone] [facility] [address] [place] 2019-12-09 2019-12-09 Case [facility] 1.2.840.114 [id number] Univers 00:00:00 00:00:00 Management Kari Mccullough Krista 350.1.13.10 ity of [place] Profess[place] [phone] [facility] 204 [facility] 2019-12-08 2019-12-08 Emergency [facility] 1.2.110.513 [id number] Univers 11:01:00 14:17:00 Lesley Bah Krista 350.1.13.10 i ty of [place] 4.2.7.2.686 [place] [phone] [facility] [address] [place] 2019-12-08 2019-12-08 Office [facility] 1.2.840.114 [id number] Univers 09:53:04 10:44:29 Visit Abhijit Velasco 350.1.13.10 i ty of [place] 4.2.[place].2.[place] [phone] [facility] 204 [facility] 2019-12-08 2019-12-08 Outpatient R [facility] [id number] Univers 10:15:00 10:15:00 ABHIJIT ity of [facility] 2019-12-08 2019-12-08 Orders Doctor CIPRIANO 1.2.840.114 [id number] Univers 00:00:00 00:00:00 Only Unassigned, KATIE 350.1.13.10 ity of [facility] 4.2.7.2.686 [place] [phone] [facility] [address] [place] 2019-12-06 2019-12-06 Refsherron FisherNEW [facility] 1.2.840.114 [id number] Univers 00:00:00 00:00:00 Johnson Velasco 350.1.13.10 ity of [place] 4.2.[place].2.[place] [phone] [facility] 092 [facility] 2019-10-17 2019-10-17 [facility] 1.2.840.114 [id number] Univers 00:00:00 00:00:00 Johnson Velasco 350.1.13.10 ity of [place] 4[place].2.[place] [phone] [address] 2019-09-29 2019-09-29 Orders Doctor CIPRIANO 1.2.840.114 [id number] Univers 00:00:00 00:00:00 Only Unassigned, KATIE 350.1.13.10 ity of [place] [facility] 4.2.7.2.686 [place] [phone] [address] 2019-09-23 2019-09-23 [facility] 1.2.840.114 [id number] Univers 00:00:00 00:00:00 Johnson Velasco 350.1.13.10 [place] [phone] [address] 2019-08-07 2019-08-07 [facility] [place] 1.2.840.114 [id number] Univers 00:00:00 00:00:00 Johnson Velasco 350.1.13.10 [place] 4[place]2.[place] [phone] [address] 2019-05-21 2019-05-21 [facility] 1.2.840.114 [id number] Univers 00:00:00 00:00:00 Johnson Velasco 350.1.13.10 [place] 4[place]2.[phone] [place] dichi nal [address] [place] [address] 2019-04-24 2019-04-24 [facility] 1.2.840.114 [id number] Univers 00:00:00 00:00:00 Johnson Velasco 350.1.13.10 [place] 4[place]2.[place] [phone] [facility] nal [address] [place] [address] 2019-04-17 2019-04-17 Telephone Castillo [facility] 1.2.840.114 [id number] Univers 00:00:00 00:00:00 Johnson Zamudioton 350.1.13.10 [place] 4[place]2.[phone] [place] dical nal 092 [facility] 2019-04-07 2019-04-07 Telephone Castillo [facility] 1.2.840.114 [id number] Univers 00:00:00 00:00:00 Johnson Velasco 350.1.13.10 [phone] dical nal 092 [facility] 2019-03-28 2019-03-28 General Labor 2, Adc Lab [facility] 1.2.840.114 [id number] Univers 11:02:20 11:17:20 Visit Johnson Fisher Gopal Velasco 350.1.13 .10 [phone] Ct dical nal 353 [facility] 2019-03-28 2019-03-28 Office Castillo MSYAW 1.2.840.114 [id number] Univers 09:56:36 10:59:16 Visit Johnson Velasco 350.1.13.10 [place] [phone] Ct dical nal 092 [facility] 2019-03-28 2019-03-28 Orders Doctor CIPRIANO 1.2.840.114 [id number] Univers 00:00:00 00:00:00 Only Unassigned, KATIE 350.1.13.10 ity of [place] [facility] 4.2.7.2.686 [place] as [phone] [place] [address] [place] 2018-11-05 2018-11-05 Emergency E [facility] 7500 [address] 11:03:00 11:03:00 l [facility] 2017-08-24 2017-08-24 Outpatient [facility] [id number] Common 08:45:00 08:45:[address] [facility] 2017-08-01 2017-08-01 Outpatient Trish Chamberst 14 [id number] Common 10:15:00 10:15:00 t [employer] [facility] [employer] MEMS [facility] Results Test Description Test Time Test Comments Results Result Comments Source COMP. METABOLIC PANEL ([id number]) 2022-05-28 01:28:49 Test Item Value Reference Range Interpretation Comme nts NA (test code = 5884951471) 141 mmol/L 135-145 K (test code = 9109560844) 4.3 mmol/L 3.5-5.0 CL (test code = 1770579442) 105 mmol/L 98-108 CO2 TOTAL (test code = 0977066962) 20 mmol/L 23-31 L AGAP (test code = 7328567306) 16 2-16 BUN (test code = 7665470018) 19 mg/dL 7-23 GLUCOSE (test code = 0057874912) 146 mg/dL 70-110 H CREATININE (test code = 0.80 mg/dL 0.50-1.04 1773405116) TOTAL BILI (test code = 0.7 mg/dL 0.1-1.5 9570683731) CALCIUM (test code = 8408883923) 9.9 mg/dL 8.6-10.6 T PROTEIN (test code = 7774428038) 7.9 g/dL 6.3-8.2 ALBUMIN (test code = 9213701472) 4.6 g/dL 3.5-5.0 ALK PHOS (test code = 7498928170) 129 U/L 34-122 H ALTv (test code = 1742-6) 36 U/L 5-35 H AST(SGOT) (test code = 6647769716) 37 U/L 13-40 eGFR (test code = 7816381513) 76.9 mL/min/1.73m2 ANTHONY (test code = ANTHONY) [...] tests). Lab Interpretation (test code = Abnormal 46850-9) [facility] WITH [id number] 01:15:09 Test Item Value Reference Range Interpretation Comments WBC (test code = 10.84 See_Comment [Automated 4290-2) message] The sy stem which generated this result transmitted reference range : 4.30 - 11.10 10*3/?L. The reference range was not used to interpret this result as normal/abnormal . RBC (test code = 3.57 See_Comment L [Automated 119-8) message] The sy stem which generated this [...] (test code = 61.2 fL 39.0-49.9 H 14406-1) RDW-CV (test code = 18.0 % 12.0-15.5 H 788-0) PLT (test code = 339 See_Comment [Automated 777-3) message] The sy stem which generated this result transmitted reference range : 166 - 358 10*3/ ?L. The reference r miky was not used to interpret this result as normal/abnormal . MPV (test code = 9.7 fL 9.5-12.9 61625-7) NRBC/100 WBC (test 0.0 See_Comment [Automat ed code = 4587718631) message] The system which generated this result transmitted reference range : 0.0 - 10.0 /100 WBCs. The refer ence range was not u sed to interpret th is result as normal/abnormal . NRBC x10^3 (test code See_Comment [Auto mated = 2469562740) message] The s ystem which generated this result transmitted reference range : 10*3/?L. The reference range was not used to interpret this result as normal/abnormal . GRAN MAT (NEUT) % 62.2 % (test code = 770-8) IMM GRAN % (test code 2.00 % = 7255583612) LYMPH % (test code = 26.9 % 736-9) MONO % (test code = 7.9 % 5905-5) EOS % (test code = 0.7 % 713-8) BASO % (test code = 0.3 % 706-2) GRAN MAT x10^3(ANC) 6.73 10*3/uL 1.88-7.09 (test code = 5013478794) IMM GRAN x10^3 (test 0.22 10*3/uL 0.00-0.06 H code = 1095137101) LYMPH x10^3 (test code 2.92 10*3/uL 1.32-3.29 = 731-0) MONO x10^3 (test code 0.86 10*3/uL 0.33-0.92 = 742-7) EOS x10^3 (test code = 0.08 10*3/uL 0.03-0.39 711-2) BASO x10^3 (test code 0.03 10*3/uL 0.01-0.07 = 704-7) Lab Interpretation Abnormal (test code = 08951-8) [facility] [id number] 20:33:36 Test Item Value Reference Interpretation Comments Range TROPONIN I (test 0.006 ng/mL See_Comment [Automated code = 0017134763) message] The system which generated this result [...] biotin. Lab Interpretation Normal (test code = 77311-8) [facility] 20:24:14 Test Item Value Reference Range Interpretation Comments MAGNESIUM (test code = 5629657438) 1.9 mg/dL 1.7-2.4 Lab Interpretation (test code = Normal 53777-4) [facility] ([id number])2021-11-05 20:23:53 Test Item Value Reference Range Interpretation Comments NA (test code = 139 mmol/L 135-145 6169730398) K (test code = 3.9 mmol/L 3.5-5 6957119414) CL (test code = 108 mmol/L 98-108 0116248296) CO2 TOTAL (test code = 18 mmol/L 23-31 L 8612415271) AGAP (test code = 2-16 4731659945) BUN (test code = 14 mg/dL 7-23 8197972943) GLUCOSE (test code = 99 mg/dL 70-110 6520427211) CREATININE (test code = 0.71 mg/dL 0.5-1.04 2367187458) TOTAL BILI (test code = 0.4 mg/dL 0.1-1.0 0213686458) CALCIUM (test code = 9.3 mg/dL 8.6-10.6 8351717979) T PROTEIN (test code = 7.8 g/dL 6.3-8.2 9816533413) ALBUMIN (test code = 4.5 g/dL 3.5-5 3675123230) ALK PHOS (test code = 111 U/L 34-122 5639123304) ALTv (test code = 32 U/L 5-35 1742-6) AST(SGOT) (test code = 41 U/L 13-40 H 9652013906) eGFR (test code = mL/min/1.73m2 0825099141) ANTHONY (test code = ANTHONY) Association of [...] tests). Lab Interpretation Abnormal (test code = 73546-3) [facility] WITH [id number] 20:05:58 Test Item Value Reference Range Interpretation Comments WBC (test code = See_Comment L [Automated 6690-2) message] The sy stem which [...] (test code = 52.3 fL 39-49.9 H 63090-7) RDW-CV (test code = 16.1 % 12-15.5 H 788-0) PLT (test code = See_Comment [Automated 777-3) message] The sy stem which generated this result transmitted reference range : 166 - 358 10*3/ ?L. The reference r miky was not used to interpret this result as normal/abnormal . MPV (test code = 9.9 fL 9.5-12.9 35206-1) NRBC/100 WBC (test See_Comment [Automat ed code = 5325334125) message] The system which generated this result transmitted reference range : 0.0 - 10.0 /100 WBCs. The refer ence range was not u sed to interpret th is result as normal/abnormal . NRBC x10^3 (test code See_Comment [Auto mated = 1406105175) message] The s ystem which generated this result transmitted reference range : 10*3/?L. The reference range was not used to interpret this result as normal/abnormal . GRAN MAT (NEUT) % 43.9 % (test code = 770-8) IMM GRAN % (test code 0.30 % = 5383534240) LYMPH % (test code = 46.5 % 736-9) MONO % (test code = 8.5 % 5905-5) EOS % (test code = 0.5 % 713-8) BASO % (test code = 0.3 % 706-2) GRAN MAT x10^3(ANC) 1.71 10*3/uL 1.88-7.09 L (test code = 4927991016) IMM GRAN x10^3 (test 0-0.06 code = 1404147559) LYMPH x10^3 (test code 1.81 10*3/uL 1.32-3.29 = 731-0) MONO x10^3 (test code 0.33 10*3/uL 0.33-0.92 = 742-7) EOS x10^3 (test code = 0.03-0.39 L 711-2) BASO x10^3 (test code 0.01-0.07 = 704-7) Lab Interpretation Abnormal (test code = 32742-8) [facility] MOLECULAR [id number] 18:32:12 Test Item Value Reference Range Interpretation Comments POCT Molecular FluA (test code = Negative Negative 12963-2) POCT Molecular FluB (test code = Negative Negative 90081-1) Lab Interpretation (test code = Normal 92373-3) [facility] MOLECULAR [id number] 18:16:35 Test Item Value Reference Range Interpretation Comments POCT Molecular Strep (test code = Negative Negative 99468-5) Lab Interpretation (test code = Normal 33512-4) [facility] [id number] 12:15:46 Test Item Value Reference Interpretation Comments Range TROPONIN I (test 0.004 ng/mL See_Comment [Automated code = 9788555058) message] The system which generated this result [...] biotin. Lab Interpretation Normal (test code = 40924-7) [facility] [id number] 12:12:30 Test Item Value Reference Range Interpretation Comments NT-proBNP (test code 26 pg/mL See_Comment [Autom ated = 8703046015) message] The system which generated this result transmitted reference range : <=125. The reference range was not used to interpret this result as normal/abnormal . ANTHONY (test code = ANTHONY) Biotin has been reported to cause a negative bias, interpret results relative to patient's use of biotin. Lab Interpretation Normal (test code = 21661-2) [facility] [id number] 12:12:29 Test Item Value Reference Range Interpretation Comments APTT Patient (test See_Comment [Automat ed code = 3173-2) message] The system which generated this result transmitted reference range : 23 - 38 Seconds . The reference range was not used to interpr et this result as normal/abnormal . ANTHONY (test code = ANTHONY) The [facility] patient population mean normal value for aPTT is 30 seconds. Lab Interpretation Normal (test code = 98103-7) [facility] / [id number] 12:10:08 Test Item Value Reference Range Interpretation [...] tions. Lab Interpretation (test Normal code = 37104-3) [facility] ([id number])2021-10-29 12:03:49 Test Item Value Reference Range Interpretation Comments NA (test code = 139 mmol/L 135-145 0390677528) K (test code = 3.9 mmol/L 3.5-5 0790167784) CL (test code = 110 mmol/L 98-108 H 8697478025) CO2 TOTAL (test code = 17 mmol/L 23-31 L 4196970521) AGAP (test code = 2-16 5621568963) BUN (test code = 23 mg/dL 7-23 1659557241) GLUCOSE (test code = 122 mg/dL 70-110 H 5907484926) CREATININE (test code = 1.05 mg/dL 0.5-1.04 H 4211286803) TOTAL BILI (test code = 0.4 mg/dL 0.1-1.1 8926060063) CALCIUM (test code = 9.5 mg/dL 8.6-10.6 5652013713) T PROTEIN (test code = 7.5 g/dL 6.3-8.2 1246057388) ALBUMIN (test code = 4.6 g/dL 3.5-5 3432836235) ALK PHOS (test code = 134 U/L 34-122 H 7912833656) ALTv (test code = 28 U/L 5-35 1742-6) AST(SGOT) (test code = 29 U/L 13-40 5907894318) eGFR (test code = mL/min/1.73m2 4199215788) ANTHONY (test code = ANTHONY) Association of [...] tests). Lab Interpretation Abnormal (test code = 64933-8) [facility] 12:03:49 Test Item Value Reference Range Interpretation Comments LIPASE (test code = 6679312511) 63 U/L 0-220 Lab Interpretation (test code = Normal 93735-4) [facility] WITH [id number] 11:59:27 Test Item Value Reference Range Interpretation Comments WBC (test code = See_Comment H [Automated 7990-2) message] The sy stem which generated this [...] (test code = 51.6 fL 39-49.9 H 40020-0) RDW-CV (test code = 15.4 % 12-15.5 788-0) PLT (test code = See_Comment H [Automated 777-3) message] The sy stem which generated this result transmitted reference range : 166 - 358 10*3/ ?L. The reference r miky was not used to interpret this result as normal/abnormal . MPV (test code = 9.9 fL 9.5-12.9 90934-2) NRBC/100 WBC (test See_Comment [Automat ed code = 5871927490) message] The system which generated this result transmitted reference range : 0.0 - 10.0 /100 WBCs. The refer ence range was not u sed to interpret th is result as normal/abnormal . NRBC x10^3 (test code See_Comment [Auto mated = 0752584452) message] The s ystem which generated this result transmitted reference range : 10*3/?L. The reference range was not used to interpret this result as normal/abnormal . GRAN MAT (NEUT) % 73.7 % (test code = 770-8) IMM GRAN % (test code 0.30 % = 2878895176) LYMPH % (test code = 20.4 % 736-9) MONO % (test code = 4.8 % 5905-5) EOS % (test code = 0.5 % 713-8) BASO % (test code = 0.3 % 706-2) GRAN MAT x10^3(ANC) 8.49 10*3/uL 1.88-7.09 H (test code = 1529957212) IMM GRAN x10^3 (test 0.04 10*3/uL 0-0.06 code = 0739982957) LYMPH x10^3 (test code 2.35 10*3/uL 1.32-3.29 = 731-0) MONO x10^3 (test code 0.55 10*3/uL 0.33-0.92 = 742-7) EOS x10^3 (test code = 0.06 10*3/uL 0.03-0.39 711-2) BASO x10^3 (test code 0.03 10*3/uL 0.01-0.07 = 704-7) Lab Interpretation Abnormal (test code = 56572-1) [facility] [id number] 23:16:59 Test Item Value Reference Range Interpretation Comments APTT Patient (test See_Comment [Automat ed code = 3173-2) message] The system which generated this result transmitted reference range : 23 - 38 Seconds . The reference range was not used to interpr et this result as normal/abnormal . ANTHONY (test code = ANTHONY) The [facility] patient population mean normal value for aPTT is 30 seconds. Lab Interpretation Normal (test code = 08778-4) [facility] / [id number] 23:15:01 Test Item Value Reference Range Interpretation [...] tions. Lab Interpretation (test Abnormal code = 04759-0) [facility] ([id number])2021-10-20 22:51:53 Test Item Value Reference Range Interpretation Comments NA (test code = 137 mmol/L 135-145 9351691218) K (test code = 5.1 mmol/L 3.5-5 H 6947904194) CL (test code = 105 mmol/L 98-108 8512346002) CO2 TOTAL (test code = 22 mmol/L 23-31 L 5162123060) AGAP (test code = 2-16 3272146136) BUN (test code = 27 mg/dL 7-23 H 8117992266) GLUCOSE (test code = 139 mg/dL 70-110 H 7226074671) CREATININE (test code = 1.23 mg/dL 0.5-1.04 H 9647827705) TOTAL BILI (test code = 0.1-1.1 L 0367766087) CALCIUM (test code = 8.8 mg/dL 8.6-10.6 4926450620) T PROTEIN (test code = 7.1 g/dL 6.3-8.2 9521492194) ALBUMIN (test code = 4.5 g/dL 3.5-5 6280912810) ALK PHOS (test code = 158 U/L 34-122 H 0154232026) ALTv (test code = 130 U/L 5-35 H 1742-6) AST(SGOT) (test code = 70 U/L 13-40 H 0367155949) eGFR (test code = mL/min/1.73m2 4972785307) ANTHONY (test code = ANTHONY) Association of [...] tests). Lab Interpretation Abnormal (test code = 89922-9) [facility] WITH [id number] 22:39:51 Test Item Value Reference Range Interpretation [...] (test code = 51.7 fL 39-49.9 H 37998-5) RDW-CV (test code = 15.5 % 12-15.5 788-0) PLT (test code = See_Comment [Automated 777-3) message] The sy stem which generated this result transmitted reference range : 166 - 358 10*3/ ?L. The reference r miky was not used to interpret this result as normal/abnormal . MPV (test code = 10.2 fL 9.5-12.9 99511-9) NRBC/100 WBC (test See_Comment [Automat ed code = 5641551554) message] The system which generated this result transmitted reference range : 0.0 - 10.0 /100 WBCs. The refer ence range was not u sed to interpret th is result as normal/abnormal . NRBC x10^3 (test code See_Comment [Auto mated = 8278983840) message] The s ystem which generated this result transmitted reference range : 10*3/?L. The reference range was not used to interpret this result as normal/abnormal . GRAN MAT (NEUT) % 83.6 % (test code = 770-8) IMM GRAN % (test code 0.60 % = 1276153481) LYMPH % (test code = 10.7 % 736-9) MONO % (test code = 5.0 % 5905-5) EOS % (test code = 0.0 % 713-8) BASO % (test code = 0.1 % 706-2) GRAN MAT x10^3(ANC) 8.64 10*3/uL 1.88-7.09 H (test code = 1767609462) IMM GRAN x10^3 (test 0.06 10*3/uL 0-0.06 code = 8651532752) LYMPH x10^3 (test code 1.11 10*3/uL 1.32-3.29 L = 731-0) MONO x10^3 (test code 0.52 10*3/uL 0.33-0.92 = 742-7) EOS x10^3 (test code = 0.03-0.39 L 711-2) BASO x10^3 (test code 0.01-0.07 = 704-7) Lab Interpretation Abnormal (test code = 51500-4) [facility] + LACTIC [id number] 14:22:59 Test Item Value Reference Range Interpretation Comments PH (test code = 7.32-7.42 6252852026) PCO2 ZULEYMA (test code = See_Comment [Auto mated 4480346101) message] The sy stem which generated this result transmitted reference range : 41 - 51 mmHg. The reference range was not used to interpret this result as normal/abnormal . PO2 ZULEYMA (test code = See_Comment [Autom ated 6587004394) message] The sy stem which generated this result transmitted reference range : 25 - 40 mmHg. The reference range was not used to interpret this result as normal/abnormal . HCO3 ZULEYMA (test code = See_Comment L [Auto mated 9455448618) message] The sy stem which generated this result transmitted reference range : 24 - 28 mEq/L. The reference range was not used to interpret this result as normal/abnormal . AC VBE(BEAKER) (test mEq/L code = 7928528646) THB ZULEYMA (test code = 14.7 g/dL 12-16 3180478459) %O2HB ZULEYMA (test code = 50.1 % 52-63 L 4074099487) %COHB ZULEYMA (test code = 1.0 % 0-1.5 1686276111) %METHB ZULEYMA (test code = 0.3 % 0.4-1.5 L 3198157913) VOL%O2 ZULEYMA (test code = 10.3 % 6-12 2055623190) NA (test code = 139 mmol/L 135-145 6271768132) K+ (test code = 3.7 mmol/L 3.5-5 1559416717) AC CA IONZ (test code = 5.10 mg/dL 4.5-5.3 2351193732) GLUCOSE (test code = 92 mg/dL 70-110 1200392692) LACTIC ACID (test code 1.49 mmol/L 0.5-2.2 = 7503842775) Lab Interpretation Abnormal (test code = 17460-9) [facility] METABOLIC PANEL (NA, K, CL, CO2, GLUCOSE, BUN, CREATININE, CA)2020-12-12 11:05:50 Test Item Value Reference Range Interpretation Comments NA (test code = 133 mmol/L 135-145 L 9792411518) K (test code = 5.0 mmol/L 3.5-5.0 0951267922) CL (test code = 105 mmol/L 98-108 1112360700) CO2 TOTAL (test code = 24 mmol/L 23-31 5151136275) AGAP (test code = 2-16 3994720034) BUN (test code = 9 mg/dL 7-23 6174233099) GLUCOSE (test code = 93 mg/dL 70-110 7680555005) CREATININE (test code = 0.57 mg/dL 0.50-1.04 1522767719) CALCIUM (test code = 9.8 mg/dL 8.6-10.6 0025594401) eGFR (test code = mL/min/1.73m2 5885775919) ANTHONY (test code = ANTHONY) Association of [...] tests). Lab Interpretation Abnormal (test code = 15400-7) [facility]2021-[facility]-31 11:05:50 Test Item Value Reference Range Interpretation Comments MAGNESIUM (test code = 9793568154) 2.3 mg/dL 1.7-2.4 Lab Interpretation (test code = Normal 00168-5) [facility]2021-10-31 11:05:30 Test Item Value Reference Range Interpretation Comments PHOSPHORUS (test code = 6186513643) 4.1 mg/dL 2.5-5.0 Lab Interpretation (test code = Normal 26974-0) [facility]oOSMOLALITY, SERUM OR [id number] 17:26:02 Test Item Value Reference Range Interpretation Comments OSMOLALITY (test code = See_Comment [Au tomated message] 8973827095) The system [employer] generated this result transmitted ref erence range: 278 - 30 5 mOsm/kg. The re ference range was not u sed to interpret this result as normal/abnor mal. Lab Interpretation (test Normal code = 83874-7) [facility]com[facility] Random [id number] 15:46:31 Test Item Value Reference Range Interpretation Comments VANCO RANDOM (test code = 8.9 ug/mL 6759749455) [facility] METABOLIC PANEL (NA, K, CL, CO2, GLUCOSE, BUN, CREATININE, CA)2020-12-11 10:02:40 Test Item Value Reference Range Interpretation Comments NA (test code = 135 mmol/L 135-145 6707599439) K (test code = 4.7 mmol/L 3.5-5.0 2772773880) CL (test code = 107 mmol/L 98-108 1456689913) CO2 TOTAL (test code 24 mmol/L 23-31 = 3753025531) AGAP (test code = 2-16 2137321236) BUN (test code = 9 mg/dL 7-23 5651045639) GLUCOSE (test code = 98 mg/dL 70-110 9720212131) CREATININE (test code 0.62 mg/dL 0.50-1.04 = 5069449028) CALCIUM (test code = 9.5 mg/dL 8.6-10.6 2340828962) eGFR (test code = mL/min/1.73m2 9637643363) ANTHONY (test code = ANTHONY) Association of [...] or urine or abnormalities in imaging tests). [facility] WITH [id number] 09:45:31 Test Item Value Reference Range Interpretation [...] (test code = 55.5 fL 39.0-49.9 H 22452-9) RDW-CV (test code = 15.6 % 12.0-15.5 H 788-0) PLT (test code = See_Comment [Automated 777-3) message] The sy stem which generated this result transmitted reference range : 166 - 358 10*3/ ?L. The reference r miky was not used to interpret this result as normal/abnormal . MPV (test code = 11.5 fL 9.5-12.9 12488-2) NRBC/100 WBC (test See_Comment [Automat ed code = 5576089051) message] The system which generated this result transmitted reference range : 0.0 - 10.0 /100 WBCs. The refer ence range was not u sed to interpret th is result as normal/abnormal . NRBC x10^3 (test code See_Comment [Auto mated = 6624615025) message] The s ystem which generated this result transmitted reference range : 10*3/?L. The reference range was not used to interpret this result as normal/abnormal . GRAN MAT (NEUT) % 44.2 % (test code = 770-8) IMM GRAN % (test code 5.40 % = 3007214900) LYMPH % (test code = 35.6 % 736-9) MONO % (test code = 14.1 % 5905-5) EOS % (test code = 0.3 % 713-8) BASO % (test code = 0.4 % 706-2) GRAN MAT x10^3(ANC) 2.99 10*3/uL 1.88-7.09 (test code = 6820588000) IMM GRAN x10^3 (test 0.37 10*3/uL 0.00-0.06 H code = 6074236290) LYMPH x10^3 (test code 2.42 10*3/uL 1.32-3.29 = 731-0) MONO x10^3 (test code 0.96 10*3/uL 0.33-0.92 H = 742-7) EOS x10^3 (test code = <0.03 0.03-0.39 L 711-2) BASO x10^3 (test code 0.03 10*3/uL 0.01-0.07 = 704-7) Lab Interpretation Abnormal (test code = 16749-6) [facility]2021-[facility]30 09:37:24 Test Item Value Reference Range Interpretation Comments MAGNESIUM (test code = 1949955749) 2.3 mg/dL 1.7-2.4 Lab Interpretation (test code = Normal 92866-9) [facility]2021-10-30 09:37:04 Test Item Value Reference Range Interpretation Comments PHOSPHORUS (test code = 9398049427) 2.8 mg/dL 2.5-5.0 Lab Interpretation (test code = Normal 21134-0) [facility] [id number] 09:36:44 Test Item Value Reference Range Interpretation Comments URIC ACID (test code = 1137985624) 3.2 mg/dL 2.9-6.0 Lab Interpretation (test code = Normal 21165-0) [facility] (NA, K, CL, CO2, GLUCOSE, BUN, CREATININE, CA)2020-12-10 20:08:36 Test Item Value Reference Range Interpretation Comments NA (test code = 126 mmol/L 135-145 L 6249107354) K (test code = 3.7 mmol/L 3.5-5.0 3750586784) CL (test code = 102 mmol/L 98-108 7737188758) CO2 TOTAL (test code = 21 mmol/L 23-31 L 5632657079) AGAP (test code = 2-16 0437543530) BUN (test code = 9 mg/dL 7-23 5938284044) GLUCOSE (test code = 116 mg/dL 70-110 H 9051936489) CREATININE (test code = 0.72 mg/dL 0.50-1.04 3786742234) CALCIUM (test code = 8.9 mg/dL 8.6-10.6 7384982783) eGFR (test code = mL/min/1.73m2 3395100401) ANTHONY (test code = ANTHONY) Association of [...] tests). Lab Interpretation Abnormal (test code = 30189-9) [facility] CULTURE [id number] 20:01:33 Test Item Value Reference Range Interpretation Comments Blood Culture-Aerobic No organisms No growth Previo us (test code = 06998-7) isolated prelim inary verified result was Culture [...] Culture-Anaerobic isolated preliminar y (test code = 66325-4) verifi ed result was Culture In Progress [...] CDT Lab Interpretation Normal (test code = 08534-5) [facility] CULTURE [id number] 20:01:33 Test Item Value Reference Range Interpretation Comments Blood Culture-Aerobic No organisms No growth Previo us (test code = 69957-1) isolated prelim inary verified result was Culture [...] Culture-Anaerobic isolated preliminar y (test code = 21613-4) verifi ed result was Culture In Progress [...] CDT Lab Interpretation Normal (test code = 16206-3) [facility] Test Item Value Reference Range Interpretation Comments PHOSPHORUS (test code = [id number]) 2.5 mg/dL 2.5-5.0 Lab Interpretation (test code = Normal 24337-4) [facility] [id number] 18:49:57 Test Item Value Reference Range Interpretation [...] (test code = 52.4 fL 39.0-49.9 H 61551-3) RDW-CV (test code = 15.2 % 12.0-15.5 788-0) PLT (test code = See_Comment L [Automated 777-3) message] The sy stem which generated this result transmitted reference range : 166 - 358 10*3/ ?L. The reference r miky was not used to interpret this result as normal/abnormal . MPV (test code = 10.8 fL 9.5-12.9 86808-9) NRBC/100 WBC (test See_Comment [Automat ed code = 7558456378) message] The system which generated this result transmitted reference range : 0.0 - 10.0 /100 WBCs. The refer ence range was not u sed to interpret th is result as normal/abnormal . NRBC x10^3 (test code See_Comment [Auto mated = 1662795029) message] The s ystem which generated this result transmitted reference range : 10*3/?L. The reference range was not used to interpret this result as normal/abnormal . GRAN MAT (NEUT) % 47.2 % (test code = 770-8) IMM GRAN % (test code 5.80 % = 7082670264) LYMPH % (test code = 29.2 % 736-9) MONO % (test code = 17.1 % 5905-5) EOS % (test code = 0.4 % 713-8) BASO % (test code = 0.3 % 706-2) GRAN MAT x10^3(ANC) 3.14 10*3/uL 1.88-7.09 (test code = 8300856224) IMM GRAN x10^3 (test 0.39 10*3/uL 0.00-0.06 H code = 7190389643) LYMPH x10^3 (test code 1.95 10*3/uL 1.32-3.29 = 731-0) MONO x10^3 (test code 1.14 10*3/uL 0.33-0.92 H = 742-7) EOS x10^3 (test code = 0.03 10*3/uL 0.03-0.39 711-2) BASO x10^3 (test code <0.03 0.01-0.07 = 704-7) POLYCHROMASIA (test 2+ See_Comment [Automa karly code = 89365-3) message] The system which generated this result transmitted reference range : 2+. The referen ce range was not u sed to interpret th is result as normal/abnormal . BANDS (test code = Increased A 4049978923) Lab Interpretation Abnormal (test code = 91835-9) [facility] Draw random trough at [id number] 16:37:29 Test Item Value Reference Range Interpretation Comments VANCO TROUGH (test code 19.4 ug/mL 10.0-20.0 = 8521156361) ANTHONY (test code = ANTHONY) Toxic Range: ?>20 ug/mL 15-20 ug/mL is recommended for severe infection or when Vancomycin RAHEEM is greater than or equal to 2. Lab Interpretation (test Normal code = 49265-7) [facility] 11:49:21 Test Item Value Reference Range Interpretation Comments MAGNESIUM (test code = 5437083069) 2.1 mg/dL 1.7-2.4 Lab Interpretation (test code = Normal 70260-4) [facility] (NA, K, CL, CO2, GLUCOSE, BUN, CREATININE, CA)2020-12-10 11:49:05 Test Item Value Reference Range Interpretation Comments NA (test code = 129 mmol/L 135-145 L 3651090385) K (test code = 3.0 mmol/L 3.5-5.0 L 6253994135) CL (test code = 103 mmol/L 98-108 6355828179) CO2 TOTAL (test code = 25 mmol/L 23-31 3044961682) AGAP (test code = 2-16 L 7218344107) BUN (test code = 10 mg/dL 7-23 0958377562) GLUCOSE (test code = 123 mg/dL 70-110 H 1487857518) CREATININE (test code = 0.84 mg/dL 0.50-1.04 7203131252) CALCIUM (test code = 8.9 mg/dL 8.6-10.6 6120101496) eGFR (test code = mL/min/1.73m2 2754050647) ANTHONY (test code = ANTHONY) Association of [...] tests). Lab Interpretation Abnormal (test code = 48217-5) [facility] 11:48:59 Test Item Value Reference Range Interpretation Comments PHOSPHORUS (test code = 4704874735) 1.0 mg/dL 2.5-5.0 L Lab Interpretation (test code = Abnormal 61471-6) [facility] (NA, K, CL, CO2, GLUCOSE, BUN, CREATININE, CA)2020-12-10 02:21:51 Test Item Value Reference Range Interpretation Comments NA (test code = 130 mmol/L 135-145 L 1208539610) K (test code = 3.6 mmol/L 3.5-5.0 7725409114) CL (test code = 106 mmol/L 98-108 3106551596) CO2 TOTAL (test code = 21 mmol/L 23-31 L 7548403390) AGAP (test code = 2-16 5327722439) BUN (test code = 9 mg/dL 7-23 4083532446) GLUCOSE (test code = 142 mg/dL 70-110 H 8448346081) CREATININE (test code = 0.59 mg/dL 0.50-1.04 7126570757) CALCIUM (test code = 8.4 mg/dL 8.6-10.6 L 3501394740) eGFR (test code = mL/min/1.73m2 9219530956) ANTHONY (test code = ANTHONY) Association of [...] tests). Lab Interpretation Abnormal (test code = 90514-6) [facility] - Draw no more than 60 minutes before the 1330 dose.2020-12-09 20:29:37 Test Item Value Reference Range Interpretation Comments VANCO TROUGH (test code 20.9 ug/mL 10.0-20.0 H = 8601601589) ANTHONY (test code = ANTHONY) Toxic Range: ?>20 ug/mL 15-20 ug/mL is recommended for severe infection or when Vancomycin RAHEEM is greater than or equal to 2. Lab Interpretation (test Abnormal code = 26051-4) [facility] METABOLIC PANEL (NA, K, CL, CO2, GLUCOSE, BUN, CREATININE, CA)2020-12-09 11:48:35 Test Item Value Reference Range Interpretation Comments NA (test code = 129 mmol/L 135-145 L 9319521732) K (test code = 2.8 mmol/L 3.5-5.0 LL 1682915784) CL (test code = 104 mmol/L 98-108 4771267959) CO2 TOTAL (test code = 20 mmol/L 23-31 L 1801710490) AGAP (test code = 2-16 1975005209) BUN (test code = 10 mg/dL 7-23 6492130180) GLUCOSE (test code = 120 mg/dL 70-110 H 8034496370) CREATININE (test code = 0.68 mg/dL 0.50-1.04 1626929628) CALCIUM (test code = 7.9 mg/dL 8.6-10.6 L 0572013038) eGFR (test code = mL/min/1.73m2 2121705113) ANTHONY (test code = ANTHONY) Association of [...] tests). Lab Interpretation Abnormal (test code = 73051-0) [facility] 11:47:08 Test Item Value Reference Range Interpretation Comments MAGNESIUM (test code = 2296907749) 2.2 mg/dL 1.7-2.4 Lab Interpretation (test code = Normal 36454-8) [facility]2021-[facility]-28 11:46:48 Test Item Value Reference Range Interpretation Comments PHOSPHORUS (test code = 0801111800) 2.4 mg/dL 2.5-5.0 L Lab Interpretation (test code = Abnormal 11710-7) [facility] (NA, K, CL, CO2, GLUCOSE, BUN, CREATININE, CA)2020-12-08 12:06:15 Test Item Value Reference Range Interpretation Comments NA (test code = 130 mmol/L 135-145 L 2178704471) K (test code = 2.8 mmol/L 3.5-5.0 LL 5168509793) CL (test code = 104 mmol/L 98-108 3114706785) CO2 TOTAL (test code = 19 mmol/L 23-31 L 5782826537) AGAP (test code = 2-16 5241409133) BUN (test code = 9 mg/dL 7-23 6437347239) GLUCOSE (test code = 114 mg/dL 70-110 H 7704571344) CREATININE (test code = 0.72 mg/dL 0.50-1.04 1262786341) CALCIUM (test code = 7.9 mg/dL 8.6-10.6 L 2309835202) eGFR (test code = mL/min/1.73m2 4608767570) ANTHONY (test code = ANTHONY) Association of [...] tests). Lab Interpretation Abnormal (test code = 51081-9) [facility]2021-[facility] 11:58:12 Test Item Value Reference Range Interpretation Comments MAGNESIUM (test code = 0248629954) 1.9 mg/dL 1.7-2.4 Lab Interpretation (test code = Normal 28299-1) [facility]21-[facility] 11:57:52 Test Item Value Reference Range Interpretation Comments PHOSPHORUS (test code = 9502063262) 2.7 mg/dL 2.5-5.0 Lab Interpretation (test code = Normal 98843-9) [facility] - Draw no more than 60 minutes before the 0130 dose.2020-12-08 07:49:28 Test Item Value Reference Range Interpretation Comments VANCO TROUGH (test code 18.4 ug/mL 10.0-20.0 = 6062192942) ANTHONY (test code = ANTHONY) Toxic Range: ?>20 ug/mL 15-20 ug/mL is recommended for severe infection or when Vancomycin RAHEEM is greater than or equal to 2. Lab Interpretation (test Normal code = 30126-2) [facility] WITH [id number] 13:32:28 Test Item Value Reference Range Interpretation [...] (test code = 50.9 fL 39.0-49.9 H 63386-5) RDW-CV (test code = 15.0 % 12.0-15.5 788-0) PLT (test code = See_Comment [Automated 777-3) message] The sy stem which generated this result transmitted reference range : 166 - 358 10*3/ ?L. The reference r miky was not used to interpret this result as normal/abnormal . MPV (test code = 11.3 fL 9.5-12.9 48659-6) NRBC/100 WBC (test See_Comment [Automat ed code = 5787775965) message] The system which generated this result transmitted reference range : 0.0 - 10.0 /100 WBCs. The refer ence range was not u sed to interpret th is result as normal/abnormal . NRBC x10^3 (test code See_Comment [Auto mated = 2495287477) message] The s ystem which generated this result transmitted reference range : 10*3/?L. The reference range was not used to interpret this result as normal/abnormal . GRAN MAT (NEUT) % 57.6 % (test code = 770-8) IMM GRAN % (test code 4.60 % = 5591899044) LYMPH % (test code = 27.4 % 736-9) MONO % (test code = 9.9 % 5905-5) EOS % (test code = 0.2 % 713-8) BASO % (test code = 0.3 % 706-2) GRAN MAT x10^3(ANC) 3.79 10*3/uL 1.88-7.09 (test code = 8996155609) IMM GRAN x10^3 (test 0.30 10*3/uL 0.00-0.06 H code = 9045371127) LYMPH x10^3 (test code 1.80 10*3/uL 1.32-3.29 = 731-0) MONO x10^3 (test code 0.65 10*3/uL 0.33-0.92 = 742-7) EOS x10^3 (test code = <0.03 0.03-0.39 L 711-2) BASO x10^3 (test code <0.03 0.01-0.07 = 704-7) SCHISTOCYTES (test 1+ A code = 800-3) BANDS (test code = Increased A 1708946090) Lab Interpretation Abnormal (test code = 37534-8) [facility] 11:15:12 Test Item Value Reference Range Interpretation Comments MAGNESIUM (test code = 9267814488) 2.1 mg/dL 1.7-2.4 Lab Interpretation (test code = Normal 43317-0) [facility] (NA, K, CL, CO2, GLUCOSE, BUN, CREATININE, CA)2020-12-07 11:15:11 Test Item Value Reference Range Interpretation Comments NA (test code = 133 mmol/L 135-145 L 5242765412) K (test code = 3.2 mmol/L 3.5-5.0 L 0848633917) CL (test code = 106 mmol/L 98-108 6864405028) CO2 TOTAL (test code = 18 mmol/L 23-31 L 4354771822) AGAP (test code = 2-16 9303165413) BUN (test code = 9 mg/dL 7-23 9319499811) GLUCOSE (test code = 106 mg/dL 70-110 7987920647) CREATININE (test code = 0.64 mg/dL 0.50-1.04 4115363163) CALCIUM (test code = 8.2 mg/dL 8.6-10.6 L 3072169902) eGFR (test code = mL/min/1.73m2 0826296891) ANTHONY (test code = ANTHONY) Association of [...] tests). Lab Interpretation Abnormal (test code = 01652-1) [facility] METABOLIC PANEL (NA, K, CL, CO2, GLUCOSE, BUN, CREATININE, CA)2020-12-07 03:01:05 Test Item Value Reference Range Interpretation Comments NA (test code = 130 mmol/L 135-145 L 7329798716) K (test code = 3.4 mmol/L 3.5-5.0 L 5915831837) CL (test code = 105 mmol/L 98-108 8961965400) CO2 TOTAL (test code = 20 mmol/L 23-31 L 3737298960) AGAP (test code = 2-16 3369179805) BUN (test code = 10 mg/dL 7-23 1240636256) GLUCOSE (test code = 117 mg/dL 70-110 H 4879087752) CREATININE (test code = 0.69 mg/dL 0.50-1.04 7294043877) CALCIUM (test code = 7.9 mg/dL 8.6-10.6 L 3234536086) eGFR (test code = mL/min/1.73m2 5204399257) ANTHONY (test code = ANTHONY) Association of [...] tests). Lab Interpretation Abnormal (test code = 39335-2) [facility] (NA, K, CL, CO2, GLUCOSE, BUN, CREATININE, CA)2020-12-06 17:09:25 Test Item Value Reference Range Interpretation Comments NA (test code = 126 mmol/L 135-145 L 6189792000) K (test code = 2.9 mmol/L 3.5-5.0 LL 9658816807) CL (test code = 104 mmol/L 98-108 4139726032) CO2 TOTAL (test code = 13 mmol/L 23-31 L 6747215391) AGAP (test code = 2-16 9448718737) BUN (test code = 11 mg/dL 7-23 6808209302) GLUCOSE (test code = 147 mg/dL 70-110 H 4575679093) CREATININE (test code = 0.80 mg/dL 0.50-1.04 4860257762) CALCIUM (test code = 7.9 mg/dL 8.6-10.6 L 5054946660) eGFR (test code = mL/min/1.73m2 2279499241) ANTHONY (test code = ANTHONY) Association of [...] tests). Lab Interpretation Abnormal (test code = 51098-0) [facility]oMagnesium [id number] 17:05:09 Test Item Value Reference Range Interpretation Comments MAGNESIUM (test code = 2255724994) 2.3 mg/dL 1.7-2.4 Lab Interpretation (test code = Normal 33765-6) [facility] with [id number] 16:52:56 Test Item Value Reference Range Interpretation [...] (test code = 50.9 fL 39.0-49.9 H 67603-7) RDW-CV (test code = 15.0 % 12.0-15.5 788-0) PLT (test code = See_Comment [Automated 777-3) message] The sy stem which generated this result transmitted reference range : 166 - 358 10*3/ ?L. The reference r miky was not used to interpret this result as normal/abnormal . MPV (test code = 11.4 fL 9.5-12.9 61829-2) NRBC/100 WBC (test See_Comment [Automat ed code = 0382641088) message] The system which generated this result transmitted reference range : 0.0 - 10.0 /100 WBCs. The refer ence range was not u sed to interpret th is result as normal/abnormal . NRBC x10^3 (test code <0.01 See_Comment [Auto mated = 1673398042) message] The s ystem which generated this result transmitted reference range : 10*3/?L. The reference range was not used to interpret this result as normal/abnormal . GRAN MAT (NEUT) % 53.9 % (test code = 770-8) IMM GRAN % (test code 3.10 % = 7560557535) LYMPH % (test code = 30.8 % 736-9) MONO % (test code = 11.3 % 5905-5) EOS % (test code = 0.3 % 713-8) BASO % (test code = 0.6 % 706-2) GRAN MAT x10^3(ANC) 3.48 10*3/uL 1.88-7.09 (test code = 1338481119) IMM GRAN x10^3 (test 0.20 10*3/uL 0.00-0.06 H code = 2438753520) LYMPH x10^3 (test code 1.99 10*3/uL 1.32-3.29 = 731-0) MONO x10^3 (test code 0.73 10*3/uL 0.33-0.92 = 742-7) EOS x10^3 (test code = <0.03 0.03-0.39 L 711-2) BASO x10^3 (test code 0.04 10*3/uL 0.01-0.07 = 704-7) BANDS (test code = Increased A 3074908150) Lab Interpretation Abnormal (test code = 27074-7) [facility] 00:30:48 Test Item Value Reference Range Interpretation Comments MAGNESIUM (test code = 9467965636) 1.4 mg/dL 1.7-2.4 L Lab Interpretation (test code = Abnormal 85851-4) [facility] (NA, K, CL, CO2, GLUCOSE, BUN, CREATININE, CA)2020-12-06 00:00:55 Test Item Value Reference Range Interpretation Comments NA (test code = 135 mmol/L 135-145 7382446652) K (test code = 2.3 mmol/L 3.5-5.0 LL 8438647586) CL (test code = 116 mmol/L 98-108 H 5111426751) CO2 TOTAL (test code = 14 mmol/L 23-31 L 2287860525) AGAP (test code = 2-16 6035610812) BUN (test code = 16 mg/dL 7-23 4458501295) GLUCOSE (test code = 98 mg/dL 70-110 7120397701) CREATININE (test code = 0.85 mg/dL 0.50-1.04 7849365362) CALCIUM (test code = 5.7 mg/dL 8.6-10.6 LL 0338429263) eGFR (test code = mL/min/1.73m2 1945701012) ANTHONY (test code = ANTHONY) Association of [...] tests). Lab Interpretation Abnormal (test code = 32204-0) [facility]YROID STIMULATING [id number] 20:54:58 Test Item Value Reference Range Interpretation Comments TSH (test code = See_Comment [Automated message] 1239937529) The system whic h generated this result transmitted ref erence range: 0.45 - 4 .70 mIU/L. The refe rence range was not u sed to interpret this result as normal/abnor mal. Lab Interpretation (test Normal code = 44622-9) [facility] 20:23:21 Test Item Value Reference Range Interpretation Comments LIPASE (test code = 9329787939) 130 U/L 0-220 Lab Interpretation (test code = Normal 58752-9) [facility] WITH [id number] 19:46:50 Test Item Value Reference Range Interpretation Comments WBC (test code = See_Comment [Automated 6690-2) message] The system which generated this result transmitted reference range : 4.30 - 11.10 10*3/?L. The reference range was not used to interpret this result as normal/abnormal . RBC (test code = See_Comment L [Automated 529-8) message] The system which generated this result [...] RDW-SD (test code = 49.2 fL 39.0-49.9 09557-2) RDW-CV (test code = 14.8 % 12.0-15.5 788-0) PLT (test code = See_Comment [Automated 777-3) message] The system which generated this result transmitted reference range : 166 - 358 10*3/?L. The reference range was not used to interpret this result as normal/abnormal . MPV (test code = 11.9 fL 9.5-12.9 76323-6) NRBC/100 WBC (test See_Comment [Automat ed code = 8669034608) message] The system which generated this result transmitted reference range : 0.0 - 10.0 /100 WBCs. The reference range was not used to interpret this result as normal/abnormal . NRBC x10^3 (test code See_Comment [Auto mated = 5500590688) message] The system which generated this result transmitted reference range : 10*3/?L. The reference range was not used to interpret this result as normal/abnormal . GRAN MAT (NEUT) % 45.3 % (test code = 770-8) IMM GRAN % (test code 1.60 % = 9117197747) LYMPH % (test code = 41.5 % 736-9) MONO % (test code = 10.4 % 5905-5) EOS % (test code = 0.6 % 713-8) BASO % (test code = 0.6 % 706-2) GRAN MAT x10^3(ANC) 3.18 10*3/uL 1.88-7.09 (test code = 7886493655) IMM GRAN x10^3 (test 0.11 10*3/uL 0.00-0.06 H code = 5889710326) LYMPH x10^3 (test 2.91 10*3/uL 1.32-3.29 code [...] BANDS (test code = MARKED INCREASED A 8132808762) LG GRAN LYMPHS (test Rare Rare code = 8429331138) REACT LYMPHS (test Rare code = 6537927013) TOXIC CHANGES (test Present A code = 803-7) Lab Interpretation Abnormal (test code = 77146-1) [facility]SE(AGE >30DAYS)2020-12-05 19:44:00 Test Item Value Reference Range Interpretation Comments POCT Glu (age>30days) (test code = 154 mg/dL 70-110 A 3342) Lab Interpretation (test code = Abnormal 82826-2) [facility]oTroponin [id number] 19:21:17 Test Item Value Reference Interpretation Comments Range TROPONIN I (test 0.008 ng/mL See_Comment [Automated code = 0412286213) message] The system which generated this result [...] biotin. Lab Interpretation Normal (test code = 94086-3) [facility]OL[facility] ([id number])2020-12-05 19:10:58 Test Item Value Reference Range Interpretation Comments NA (test code = 122 mmol/L 135-145 L 3201956790) K (test code = 3.2 mmol/L 3.5-5.0 L 9022096055) CL (test code = 97 mmol/L 98-108 L 2493434222) CO2 TOTAL (test code = 16 mmol/L 23-31 L 4623289309) AGAP (test code = 2-16 3785433181) BUN (test code = 21 mg/dL 7-23 2970159793) GLUCOSE (test code = 154 mg/dL 70-110 H 6499620891) CREATININE (test code = 1.40 mg/dL 0.50-1.04 H 4306359730) TOTAL BILI (test code = 0.6 mg/dL 0.1-1.6 4170895060) CALCIUM (test code = 8.6 mg/dL 8.6-10.6 7725284199) T PROTEIN (test code = 5.7 g/dL 6.3-8.2 L 9640251756) ALBUMIN (test code = 3.0 g/dL 3.5-5.0 L 0107232453) ALK PHOS (test code = 187 U/L 34-122 H 8167820400) ALTv (test code = 43 U/L 5-35 H 1742-6) AST(SGOT) (test code = 66 U/L 13-40 H 8318999916) eGFR (test code = mL/min/1.73m2 0158375463) ANTHONY (test code = ANTHONY) Association of [...] tests). Lab Interpretation Abnormal (test code = 08733-9) [facility] 19:10:58 Test Item Value Reference Range Interpretation Comments MAGNESIUM (test code = 0264234009) 1.8 mg/dL 1.7-2.4 Lab Interpretation (test code = Normal 76677-2) [facility] [id number] 18:53:00 Test Item Value Reference Range Interpretation Comments POCT PREG (test code = 1605) negative POCT PREG LOT # (test code = 3575) [id number] POCT PREG TEST DATE (test 2022-02-11 code = 3576) Lab Interpretation (test code = Normal 60782-2) [facility]SSA(RO)2020-08-10 17:06:47 Test Item Value Reference Range Interpretation Comments ANTI-SSA(RO) (test code = Negative Negative 0190439822) ANTHONY (test code = ANTHONY) Positive - Antibody detected.Negative - No antibody detected. Lab Interpretation (test Normal code = 71817-5) [facility]-SSB(LA)2020-08-10 17:06:47 Test Item Value Reference Range Interpretation Comments Anti-SSB(LA) (test code = Negative Negative 4007819276) ANTHONY (test code = ANTHONY) Positive - Antibody detected.Negative - No antibody detected. Lab Interpretation (test Normal code = 35067-9) [facility]oRHEUMATOID [id number] 14:42:16 Test Item Value Reference Range Interpretation Comments RF (test code = <20 See_Comment [Automated message] 8398683236) The system [employer] generated this result transmitted ref erence range: <20 IU/m L. The reference range was not used to int erpret this result as normal/abnormal . Lab Interpretation (test Normal code = 06404-4) [facility]oC-REACTIVE [id number] 14:41:04 Test Item Value Reference Range Interpretation Comments CRP (test code = 3754223206) 0.3 mg/dL <0.8 Lab Interpretation (test code = Normal 15180-3) [facility] L[facility]X ONLY - [id number] 09:50:30 Test Item Value Reference Range Interpretation Comments RPR (Qualitative) (test code = Nonreactive Nonreactive 72408-9) Lab Interpretation (test code = Normal 74738-8) [facility]oHIV 1/2 AG-AB WITH [id number] 20:09:42 Test Item Value Reference Range Interpretation Comments HIV Negative Negative Semi-quantitative (test code = 99955-0) ANTHONY (test code = Non-reactive for HIV-1 ANTHONY) antigen and HIV-1/HIV-2 antibodies. ?No laboratory evidence of HIV infection. ?Repeat in 2-4 weeks if acute HIV infection is suspected. [facility]oSEDIMENTATION [id number] 19:49:09 Test Item Value Reference Range Interpretation Comments ESR (test code = See_Comment H [Automated message] 7443485224) The system [employer] generated this result transmitted ref erence range: 0 - 20 m m/HR. The reference r miky was not used to interpret this result as normal/abnor mal. Lab Interpretation (test Abnormal code = 23388-1) [facility]oCOM[facility] METABOLIC PANEL ([id number])2020-08-09 19:29:16 Test Item Value Reference Range Interpretation Comments NA (test code = 133 mmol/L 135-145 L 8165704601) K (test code = 4.4 mmol/L 3.5-5.0 6190682021) CL (test code = 97 mmol/L 98-108 L 5890598922) CO2 TOTAL (test code = 24 mmol/L 23-31 7304366881) AGAP (test code = 2-16 8939927102) BUN (test code = 21 mg/dL 7-23 2024588776) GLUCOSE (test code = 154 mg/dL 70-110 H 7928202191) CREATININE (test code = 0.86 mg/dL 0.50-1.04 1157685483) TOTAL BILI (test code = 0.5 mg/dL 0.1-1.6 0492139613) CALCIUM (test code = 10.0 mg/dL 8.6-10.6 4229785445) T PROTEIN (test code = 8.0 g/dL 6.3-8.2 3493626500) ALBUMIN (test code = 5.1 g/dL 3.5-5.0 H 1283080764) ALK PHOS (test code = 85 U/L 34-122 7475741295) ALTv (test code = 36 U/L 5-35 H 1742-6) AST(SGOT) (test code = 24 U/L 13-40 6422215748) eGFR (test code = mL/min/1.73m2 3101560036) ANTHONY (test code = ANTHONY) Association of [...] tests). Lab Interpretation Abnormal (test code = 32813-4) [facility] [id number] 18:21:29 Test Item Value Reference Range Interpretation Comments APPEARANCE (test code = Clear Clear 0299189601) COLOR (test code = Yellow Yellow 0954935889) PH (test code = 4.8-8.0 9666777944) SP GRAVITY (test code = 1.003-1.030 7300010253) GLU U QUAL (test code = Normal Normal 1824065405) BLOOD (test code = Negative Negative 7962195040) KETONES (test code = Negative Negative 9071171688) PROTEIN (test code = Negative Negative 2887-8) UROBILIN (test code = Normal Normal 9540098219) BILIRUBIN (test code = Negative Negative 7722277382) NITRITE (test code = Negative Negative 0571406698) LEUK MURRAY (test code = Negative Negative 1208623541) RBC/HPF (test code = <1 See_Comment [Autom ated message] [id number]) The system [employer] generated this result transmitted ref erence range: 0 - 3 HP F. The reference range was not used to int erpret this result as normal/abnormal . WBC/HPF (test code = See_Comment [Autom ated message] [id number]) The system [employer] generated this result transmitted ref erence range: 0 - 5 HP F. The reference range was not used to int erpret this result as normal/abnormal . BACTERIA (test code = Negative Negative [id number]) MUCOUS (test code = Slight Negative LPF A [id number]) SQ EPITH (test code = <1 HPF [id number]) Lab Interpretation (test Abnormal code = 74633-2) [facility] Test Item Value Reference Range Interpretation Comments APPEARANCE (test code = Clear Clear [id number]) COLOR (test code = Yellow Yellow [id number]) PH (test code = 4.8-8.0 6642454707) SP GRAVITY (test code = 1.003-1.030 9659112190) GLU U QUAL (test code = Normal Normal 2442053252) BLOOD (test code = Negative Negative 7041612973) KETONES (test code = Negative Negative 3311541015) PROTEIN (test code = Negative Negative 2887-8) UROBILIN (test code = Normal Normal 1510897418) BILIRUBIN (test code = Negative Negative 4094790185) NITRITE (test code = Negative Negative 2451356589) LEUK MURRAY (test code = Negative Negative 1457511112) RBC/HPF (test code = <1 See_Comment [Autom ated message] 3494930195) The system [employer] generated this result transmitted ref erence range: 0 - 3 HP F. The reference range was not used to int erpret this result as normal/abnormal . WBC/HPF (test code = See_Comment [Autom ated message] 8577002271) The system [employer] generated this result transmitted ref erence range: 0 - 5 HP F. The reference range was not used to int erpret this result as normal/abnormal . BACTERIA (test code = Negative Negative 1631691933) MUCOUS (test code = Slight Negative LPF A 1628585023) SQ EPITH (test code = <1 HPF 8293851804) Lab Interpretation (test Abnormal code = 10337-1) [facility] WITH [id number] 17:36:57 Test Item Value Reference Range Interpretation [...] RDW-SD (test code = 47.8 fL 39.0-49.9 21112-5) RDW-CV (test code = 13.4 % 12.0-15.5 788-0) PLT (test code = See_Comment [Automated 777-3) message] The sy stem which generated this result transmitted reference range : 166 - 358 10*3/ ?L. The reference r miky was not used to interpret this result as normal/abnormal . MPV (test code = 9.4 fL 9.5-12.9 L 63646-2) NRBC/100 WBC (test See_Comment [Automat ed code = 1126623776) message] The system which generated this result transmitted reference range : 0.0 - 10.0 /100 WBCs. The refer ence range was not u sed to interpret th is result as normal/abnormal . NRBC x10^3 (test code <0.01 See_Comment [Auto mated = 2526660431) message] The s ystem which generated this result transmitted reference range : 10*3/?L. The reference range was not used to interpret this result as normal/abnormal . GRAN MAT (NEUT) % 80.8 % (test code = 770-8) IMM GRAN % (test code 1.90 % = 8910606712) LYMPH % (test code = 15.0 % 736-9) MONO % (test code = 2.1 % 5905-5) EOS % (test code = 0.1 % 713-8) BASO % (test code = 0.1 % 706-2) GRAN MAT x10^3(ANC) 6.79 10*3/uL 1.88-7.09 (test code = 3603910680) IMM GRAN x10^3 (test 0.16 10*3/uL 0.00-0.06 H code = 9647528824) LYMPH x10^3 (test code 1.26 10*3/uL 1.32-3.29 L = 731-0) MONO x10^3 (test code 0.18 10*3/uL 0.33-0.92 L = 742-7) EOS x10^3 (test code = <0.03 0.03-0.39 L 711-2) BASO x10^3 (test code <0.03 0.01-0.07 = 704-7) Lab Interpretation Abnormal (test code = 15044-0) [facility] WITH [id number] 17:36:57 Test Item Value Reference Range Interpretation [...] RDW-SD (test code = 47.8 fL 39.0-49.9 98760-2) RDW-CV (test code = 13.4 % 12.0-15.5 788-0) PLT (test code = See_Comment [Automated 777-3) message] The sy stem which generated this result transmitted reference range : 166 - 358 10*3/ ?L. The reference r miky was not used to interpret this result as normal/abnormal . MPV (test code = 9.4 fL 9.5-12.9 L 91555-4) NRBC/100 WBC (test See_Comment [Automat ed code = 4684327209) message] The system which generated this result transmitted reference range : 0.0 - 10.0 /100 WBCs. The refer ence range was not u sed to interpret th is result as normal/abnormal . NRBC x10^3 (test code <0.01 See_Comment [Auto mated = 9319672428) message] The s ystem which generated this result transmitted reference range : 10*3/?L. The reference range was not used to interpret this result as normal/abnormal . GRAN MAT (NEUT) % 80.8 % (test code = 770-8) IMM GRAN % (test code 1.90 % = 6504578079) LYMPH % (test code = 15.0 % 736-9) MONO % (test code = 2.1 % 5905-5) EOS % (test code = 0.1 % 713-8) BASO % (test code = 0.1 % 706-2) GRAN MAT x10^3(ANC) 6.79 10*3/uL 1.88-7.09 (test code = 2865878016) IMM GRAN x10^3 (test 0.16 10*3/uL 0.00-0.06 H code = 7954962484) LYMPH x10^3 (test code 1.26 10*3/uL 1.32-3.29 L = 731-0) MONO x10^3 (test code 0.18 10*3/uL 0.33-0.92 L = 742-7) EOS x10^3 (test code = <0.03 0.03-0.39 L 711-2) BASO x10^3 (test code <0.03 0.01-0.07 = 704-7) Lab Interpretation Abnormal (test code = 98507-9) [facility]PHALIT[facility] PAN[facility] BY [id number] 22:27:23 Test Item Value Reference Range Interpretation Comments Escherichia coli K1 Negative Negative, (test code = 57293-6) Indeterminate, See Comment Haemophilus influenzae Negative Negative, (test code = 28025-6) Indeterminate, See Comment Listeria monocytogenes Negative Negative, (test code = 48649-9) Indeterminate, See Comment Neisseria meningitidis Negative Negative, (encapsulated) (test Indeterminate, code = 75723-2) See Comment Streptococcus agalactiae Negative Negative, (test code = 45550-7) Indeterminate, See Comment Streptococcus pneumoniae Negative Negative, (test code = 78236-9) Indeterminate, See Comment Cytomegalovirus (test Negative Negative, code = 15904-5) Indeterminate, See Comment Enterovirus (test code = Negative Negative, 69346-7) Indeterminate, See Comment Herpes simplex virus 1 Negative Negative, (test code = 34353-3) Indeterminate, See Comment Herpes simplex virus 2 Negative Negative, (test code = 87198-8) Indeterminate, See Comment Human herpesvirus 6 Negative Negative, (test code = 42250-6) Indeterminate, See Comment Human parechovirus (test Negative Negative, code = 73834-6) Indeterminate, See Comment Varicella zoster virus Negative Negative, (test code = 02809-8) Indeterminate, See Comment Cryptococcus Negative Negative, neoformans/gattii (test Indeterminate, code = 90037-1) See Comment ANTHONY (test code = ANTHONY) Negative:A negative result does not rule-out infection. ?This assay does not test for all potential infectious agents. Positive:A positive test result does not necessarily indicate the presence of viable organism. ? Lab Interpretation (test Normal code = 99334-0) [facility] FL[facility] DIRECT [id number] 21:52:07 Test Item Value Reference Range Interpretation Comments BF COLOR (test code = Clear 1371444396) BF WBC Count (test See_Comment [Automat ed message] The code = 1056042162) system [facility] generated this result transmit karly reference range : 0 - 5 /?L. The reference r miky was not used to interpr et this result as cassandra l/abnormal. BF RBC Count (test See_Comment [Automat ed message] The code = 1814823996) system [facility] generated this result transmit karly reference range : /?L. The reference range was not used to interpr et this result as cassandra l/abnormal. [facility] FLUID MANUAL [id number] 21:52:07BF SEGSComment: Less than 100 cells counted due to low WBC; Differential is not reported in percent.10 cells counted: 1 Neutrophils, 9 Lymphocytes, 0 Macrophages [facility]#CELS CNTDUTMBLABORATORY SERVICESUnMemorial Herm[facility] Southeast HospitalCEREBROSPINAL FLUID [id number] 20:58:36 Test Item Value Reference Range Interpretation Comments T. PRO CSF (test code = 68.0 mg/dL 15.0-45.0 H 6278952851) UNSPUN BODY FLUID COLOR Light Red (test code = 6971938564) UNSPUN BODY FLUID CLARITY Cloudy (test code = 8926341919) SPUN BODY FLUID COLOR [place] (test code = 7257680998) SPUN BODY FLUID CLARITY Clear (test code = 4737389614) Sediment (test code = The se diment 6679917322) volume is <0.1 mLs of the total fl uid volume of 5cc a nd its color is re d. Lab Interpretation (test Abnormal code = 01594-0) [facility]oCEREBROSPINAL FLUID [id number] 20:58:25 Test Item Value Reference Range Interpretation Comments GLU CSF (test code = 74 mg/dL 50-80 3274329731) UNSPUN BODY FLUID Light Red COLOR (test code = 7837836800) UNSPUN BODY FLUID Cloudy CLARITY (test code = 4622218968) SPUN BODY FLUID COLOR [place] (test code = 5046391023) SPUN BODY FLUID Clear CLARITY (test code = 1262010122) Sediment (test code = The se diment volume is 1249561095) <0.1 mLs of the total fluid volume of 5cc and its color i s red. [facility]oXR CHEST 1 [id number] 15:19:43 No acute cardiopulmonary process. Preliminary Report [...] this study and agree with theabove report. [facility]CT GLUCOSE (AUTOMATED)2020-07-14 15:07:20 Test Item Value Reference Range Interpretation Comments POCT GLU (test code = 4346956869) 98 mg/dL 70-110 Lab Interpretation (test code = Normal 48676-4) [facility]aredoC-REACTIVE [id number] 14:51:17 Test Item Value Reference Range Interpretation Comments CRP (test code = 7970215637) 0.2 mg/dL <0.8 Lab Interpretation (test code = Normal 57055-1) [facility]oMAGNESIUM2021-06-02 14:40:38 Test Item Value Reference Range Interpretation Comments MAGNESIUM (test code = 9202906949) 2.1 mg/dL 1.7-2.4 Lab Interpretation (test code = Normal 38269-2) [facility]oPhosphorus [id number] 13:50:50 Test Item Value Reference Range Interpretation Comments PHOSPHORUS (test code = 0384374867) 3.1 mg/dL 2.5-5.0 Lab Interpretation (test code = Normal 61482-9) [facility] (NA, K, CL, CO2, GLUCOSE, BUN, CREATININE, CA)2020-07-14 12:41:09 Test Item Value Reference Range Interpretation Comments NA (test code = 136 mmol/L 135-145 2731850885) K (test code = 4.3 mmol/L 3.5-5.0 3904996441) CL (test code = 108 mmol/L 98-108 4401521250) CO2 TOTAL (test code = 17 mmol/L 23-31 L 9491359791) AGAP (test code = 2-16 3993445092) BUN (test code = 22 mg/dL 7-23 2538938689) GLUCOSE (test code = 98 mg/dL 70-110 3170331078) CREATININE (test code = 0.70 mg/dL 0.50-1.04 5843867596) CALCIUM (test code = 9.4 mg/dL 8.6-10.6 7116172314) eGFR (test code = mL/min/1.73m2 6308980328) ANTHONY (test code = ANTHONY) Association of [...] tests). Lab Interpretation Abnormal (test code = 11154-7) [facility]oHepatic Function Panel (ALB, T.PRO, BILI T, BU/BC, ALT, AST, ALK PHOS)2020-07-14 12:41:09 Test Item Value Reference Range Interpretation Comments TOTAL BILI (test code = 2359114459) 0.3 mg/dL 0.1-1.1 BILI UNCON (test code = 7448774289) 0.1 mg/dL 0.1-1.1 BILI CONJ (test code = 5293991226) 0.0 mg/dL 0.0-0.3 T PROTEIN (test code = 2207433963) 7.6 g/dL 6.3-8.2 ALBUMIN (test code = 1416650598) 4.6 g/dL 3.5-5.0 ALK PHOS (test code = 8082513912) 120 U/L 34-122 ALTv (test code = 1742-6) 42 U/L 5-35 H AST(SGOT) (test code = 8134547013) 24 U/L 13-40 Lab Interpretation (test code = Abnormal 05503-9) [facility]oUrinalysis2021-06-02 10:22:07 Test Item Value Reference Range Interpretation Comments APPEARANCE (test code = Clear Clear 6614124066) COLOR (test code = Yellow Yellow 0575722217) PH (test code = 4.8-8.0 9164314694) SP GRAVITY (test code = 1.003-1.030 5343955881) GLU U QUAL (test code = Normal Normal 1446079267) BLOOD (test code = Negative Negative 4814281115) KETONES (test code = Negative Negative 5889871019) PROTEIN (test code = Negative Negative 2887-8) UROBILIN (test code = Normal Normal 4617954761) BILIRUBIN (test code = Negative Negative 5155233757) NITRITE (test code = Negative Negative 9233587900) LEUK MURRAY (test code = Negative Negative 1069964732) RBC/HPF (test code = See_Comment [Autom ated message] 0532864166) The system [employer] generated this result transmitted ref erence range: 0 - 3 HP F. The reference range was not used to int erpret this result as normal/abnormal . WBC/HPF (test code = See_Comment [Autom ated message] 6417352522) The system [employer] generated this result transmitted ref erence range: 0 - 5 HP F. The reference range was not used to int erpret this result as normal/abnormal . BACTERIA (test code = Negative Negative 6349072128) MUCOUS (test code = Slight Negative LPF A 8931252900) SQ EPITH (test code = See_Comment [Auto mated message] 1634651255) The system [employer] generated this result transmitted ref erence range: <=2 HPF. The reference range was not used to int erpret this result as normal/abnormal . Lab Interpretation (test Abnormal code = 83225-6) [facility]oCOVID-19 (ID NOW RAPID TESTING)2020-07-14 09:45:51 Test Item Value Reference Range Interpretation Comments SARS-CoV-2 Rapid ID NOW Not Detected Not Detected (test code = 84647-1) ANTHONY (test code = ANTHONY) ID NOW COVID-19 Assay is an isothermal nucleic acid amplification test intended for the qualitative detection of nucleic acid from SARS-CoV-2 viral RNA in nasopharyngeal (SOLE STITCHER HAND) specimens. It is used under Emergency Use [...] indicated. Lab Interpretation Normal (test code = 53375-1) [facility] with [id number] 02:07:47 Test Item Value Reference Range Interpretation Comments WBC (test code = See_Comment H [Automated 5590-2) message] The system which generated this result [...] RDW-SD (test code = 47.8 fL 39.0-49.9 29663-5) RDW-CV (test code = 13.6 % 12.0-15.5 788-0) PLT (test code = See_Comment H [Automated 777-3) message] The system which generated this result transmit karly reference range : 166 - 358 10*3/ ?L. The reference range was not u sed to interpret th is result as normal/abnormal . MPV (test code = 10.6 fL 9.5-12.9 49619-8) NRBC/100 WBC (test See_Comment [Automat ed code = 2708844872) message] The system which generated this result transmit karly reference range : 0.0 - 10.0 /100 WBCs. The reference range was not used to interpret this result as normal/abnormal . NRBC x10^3 (test code See_Comment [Auto mated = 9981323826) message] The system which generated this result transmit karly reference range : 10*3/?L. The reference range was not used to interpret this result as normal/abnormal . GRAN MAT (NEUT) % 70.5 % (test code = 770-8) IMM GRAN % (test code 1.60 % = 4862386586) LYMPH % (test code = 20.8 % 736-9) MONO % (test code = 6.8 % 5905-5) EOS % (test code = 0.1 % 713-8) BASO % (test code = 0.2 % 706-2) GRAN MAT x10^3(ANC) 12.19 10*3/uL 1.88-7.09 H (test code = 0314883895) IMM GRAN x10^3 (test 0.27 10*3/uL 0.00-0.06 H code = 2467162055) LYMPH x10^3 (test code 3.58 10*3/uL 1.32-3.29 H = 731-0) MONO x10^3 (test code 1.17 10*3/uL 0.33-0.92 H = 742-7) EOS x10^3 (test code = <0.03 0.03-0.39 L 711-2) BASO x10^3 (test code 0.03 10*3/uL 0.01-0.07 = 704-7) Lab Interpretation Abnormal (test code = 90318-4) [facility]aredoSEDIMENTATION [id number] 02:02:09 Test Item Value Reference Range Interpretation Comments ESR (test code = See_Comment H [Automated message] 1065396084) The system ic h generated this result transmitted ref erence range: 0 - 20 m m/HR. The reference r miky was not used to interpret this result as normal/abnor mal. Lab Interpretation (test Abnormal code = 20527-8) [facility] WITH [id number] 03:30:13 Test Item Value Reference Range Interpretation [...] RDW-SD (test code = 48.1 fL 39.0-49.9 75727-3) RDW-CV (test code = 13.3 % 12.0-15.5 788-0) PLT (test code = See_Comment [Automated 777-3) message] The sy stem which generated this result transmitted reference range : 166 - 358 10*3/ ?L. The reference r miky was not used to interpret this result as normal/abnormal . MPV (test code = 10.4 fL 9.5-12.9 21623-0) NRBC/100 WBC (test See_Comment [Automat ed code = 4209246324) message] The system which generated this result transmitted reference range : 0.0 - 10.0 /100 WBCs. The refer ence range was not u sed to interpret th is result as normal/abnormal . NRBC x10^3 (test code <0.01 See_Comment [Auto mated = 4485811576) message] The s ystem which generated this result transmitted reference range : 10*3/?L. The reference range was not used to interpret this result as normal/abnormal . GRAN MAT (NEUT) % 44.6 % (test code = 770-8) IMM GRAN % (test code 0.80 % = 2305342576) LYMPH % (test code = 43.3 % 736-9) MONO % (test code = 10.0 % 5905-5) EOS % (test code = 0.9 % 713-8) BASO % (test code = 0.4 % 706-2) GRAN MAT x10^3(ANC) 3.52 10*3/uL 1.88-7.09 (test code = 1258177997) IMM GRAN x10^3 (test 0.06 10*3/uL 0.00-0.06 code = 5382227106) LYMPH x10^3 (test code 3.42 10*3/uL 1.32-3.29 H = 731-0) MONO x10^3 (test code 0.79 10*3/uL 0.33-0.92 = 742-7) EOS x10^3 (test code = 0.07 10*3/uL 0.03-0.39 711-2) BASO x10^3 (test code 0.03 10*3/uL 0.01-0.07 = 704-7) Lab Interpretation Abnormal (test code = 96400-9) [facility]oLIPASE2021-05-23 19:38:39 Test Item Value Reference Range Interpretation Comments LIPASE (test code = 7451083394) 39 U/L 0-220 Lab Interpretation (test code = Normal 86286-5) [facility]aredoCOMP. METABOLIC PANEL (04046)2020-07-04 19:20:59 Test Item Value Reference Range Interpretation Comments NA (test code = 138 mmol/L 135-145 9443934688) K (test code = 3.9 mmol/L 3.5-5.0 3964005369) CL (test code = 101 mmol/L 98-108 5562824316) CO2 TOTAL (test code = 27 mmol/L 23-31 9486181793) AGAP (test code = 2-16 2014581864) BUN (test code = 20 mg/dL 7-23 2793613721) GLUCOSE (test code = 105 mg/dL 70-110 4236542394) CREATININE (test code = 0.78 mg/dL 0.50-1.04 6941583123) TOTAL BILI (test code = 0.4 mg/dL 0.1-1.7 2821713193) CALCIUM (test code = 9.8 mg/dL 8.6-10.6 0576531768) T PROTEIN (test code = 9.1 g/dL 6.3-8.2 H 4429995777) ALBUMIN (test code = 4.9 g/dL 3.5-5.0 9462116872) ALK PHOS (test code = 171 U/L 34-122 H 0118521528) ALTv (test code = 136 U/L 5-35 H 1742-6) AST(SGOT) (test code = 82 U/L 13-40 H 3410788761) eGFR (test code = mL/min/1.73m2 0255666757) ANTHONY (test code = ANTHONY) Association of [...] tests). Lab Interpretation Abnormal (test code = 01588-4) [facility]inalysis2021-05-23 19:14:12 Test Item Value Reference Range Interpretation Comments APPEARANCE (test code = Clear Clear 3850951442) COLOR (test code = Yellow Yellow 4264591032) PH (test code = 4.8-8.0 8125584731) SP GRAVITY (test code = 1.003-1.030 4169193528) GLU U QUAL (test code = Normal Normal 0129112252) BLOOD (test code = Negative Negative 9989853858) KETONES (test code = Negative Negative 4168964800) PROTEIN (test code = Negative Negative 2887-8) UROBILIN (test code = Normal Normal 5101925764) BILIRUBIN (test code = Negative Negative 4813205364) NITRITE (test code = Negative Negative 0789986780) LEUK MURRAY (test code = 75/uL Negative A 0392921711) RBC/HPF (test code = See_Comment [Autom ated message] 5346710157) The system [employer] generated this result transmitted ref erence range: 0 - 3 HP F. The reference range was not used to int erpret this result as normal/abnormal . WBC/HPF (test code = See_Comment H [Autom ated message] 5414885702) The system [employer] generated this result transmitted ref erence range: 0 - 5 HP F. The reference range was not used to int erpret this result as normal/abnormal . BACTERIA (test code = Negative Negative 2716955621) MUCOUS (test code = Slight Negative LPF A 2118208148) SQ EPITH (test code = HPF 1940628795) Lab Interpretation (test Abnormal code = 82880-8) [facility]oCB WITH [id number] 19:10:40 Test Item Value Reference Range Interpretation Comments WBC (test code = See_Comment [Automated 9390-2) message] The sy stem which generated this result transmitted reference range : 4.30 - 11.10 10*3/?L. The reference range was not used to interpret this result as normal/abnormal . RBC (test code = See_Comment L [Automated 709-8) message] The sy stem which generated this [...] RDW-SD (test code = 47.2 fL 39.0-49.9 17447-6) RDW-CV (test code = 13.2 % 12.0-15.5 788-0) PLT (test code = See_Comment [Automated 777-3) message] The sy stem which generated this result transmitted reference range : 166 - 358 10*3/ ?L. The reference r miky was not used to interpret this result as normal/abnormal . MPV (test code = 10.5 fL 9.5-12.9 94026-4) NRBC/100 WBC (test See_Comment [Automat ed code = 4282535605) message] The system which generated this result transmitted reference range : 0.0 - 10.0 /100 WBCs. The refer ence range was not u sed to interpret th is result as normal/abnormal . NRBC x10^3 (test code <0.01 See_Comment [Auto mated = 8675039011) message] The s ystem which generated this result transmitted reference range : 10*3/?L. The reference range was not used to interpret this result as normal/abnormal . GRAN MAT (NEUT) % 54.8 % (test code = 770-8) IMM GRAN % (test code 0.80 % = 9078405092) LYMPH % (test code = 32.1 % 736-9) MONO % (test code = 10.3 % 5905-5) EOS % (test code = 1.7 % 713-8) BASO % (test code = 0.3 % 706-2) GRAN MAT x10^3(ANC) 3.46 10*3/uL 1.88-7.09 (test code = 1955222020) IMM GRAN x10^3 (test 0.05 10*3/uL 0.00-0.06 code = 0006379432) LYMPH x10^3 (test code 2.03 10*3/uL 1.32-3.29 = 731-0) MONO x10^3 (test code 0.65 10*3/uL 0.33-0.92 = 742-7) EOS x10^3 (test code = 0.11 10*3/uL 0.03-0.39 711-2) BASO x10^3 (test code <0.03 0.01-0.07 = 704-7) Lab Interpretation Abnormal (test code = 67669-0) [facility]oTROPONIN [id number] 17:09:15 Test Item Value Reference Range Interpretation Comments TROPONIN I (test 0.000 ng/mL See_Comment [Automated code = 2673428651) message] The system which generated this result [...] ? Lab Interpretation Normal (test code = 20280-0) [facility]oMR BRAIN WO [id number] 15:28:24 Within the limitation of motion degrading [...] reviewed this study and agree with theabove report.[facility]oCT ANGIOGRAM [id number] 01:50:14 No large vessel occlusion or flow-limiting [...] suspected TECHNIQUE: Axial CT imaging of the [place] and from the skull baseto the superior mediastinum was obtained during arterial phase after theintravenous administration of IV contrast. Coronal, sagittal, and MIPS wereconstructed. COMPARISON: Sameday CT head FINDINGS: CTA HEAD: The PICA origin is visualized bilaterally. The basilar artery is normal incaliber. Common origin of the left superior cerebellar and POWER BRAKE OPERATOR is noted.The superior cerebellararteries are patent. The posterior cerebralarteries are patent. A right POWER BRAKE OPERATOR is identified. A sm all leftposterior communicating [...] identified. Kyphotic reversal of the cervical spine. [facility], Radiant Results Inft User - 06/26/2020 8:51 PM CDTEXAM: CT ANGIOGRAM HEAD, CT ANGIOGRAM NECKHISTORY: Headache, intracranial hemorrhage suspected TECHNIQUE: Axial CT imaging of the [place] and from the skull baseto the superior mediastinum was obtained during arterial phase after theintravenous administration of IV contrast. Coronal, sagittal, and MIPS wereconstructed.COMPARISON: Same day CT headFINDINGS:CTA HEAD:The PICA origin is visualized bilaterally. The basilar artery is normal incaliber. Common origin of the left superior cerebellar and POWER BRAKE OPERATOR is noted.The superior cerebellar arteries are patent. The posterior cerebralarteries are patent. A right POWER BRAKE OPERATOR is identified. A small leftposterior communicating artery [...] reviewed this study and agree with theabove report.[facility]oCT ANGIOGRAM [id number] 01:50:14 No large vessel occlusion or flow-limiting stenosis is identified in thehead and neck arteries. Follow-up with dedicated thyroid ultrasound on a non-emergent, outpatientbasis is recommended for further characterization. Preliminary Report Dictated by Resident: Aury Hallman MD., have reviewed this study and agree with theabove report.EXAM: CT ANGIOGRAM HEAD, CT ANGIOGRAM NECK HISTORY: ?Headache, intracranial hemorrhage suspected TECHNIQUE: Axial CT imaging of the [place] and from the skull baseto the superior mediastinum was obtained during arterial phase after theintravenous administration of IV contrast. Coronal, sagittal, and MIPS wereconstructed. COMPARISON: Sameday CT head FINDINGS: CTA HEAD: The PICA origin is visualized bilaterally. The basilar artery is normal incaliber. Common origin of the left superior cerebellar and POWER BRAKE OPERATOR is noted.The superior cerebellararteries are patent. The posterior cerebralarteries are patent. A right POWER BRAKE OPERATOR is identified. A sm all leftposterior communicating [...] identified. Kyphotic reversal of the cervical spine. [facility], Radiant Results Inft User - 06/26/2020 8:51 PM CDTEXAM: CT ANGIOGRAM HEAD, CT ANGIOGRAM NECKHISTORY: Headache, intracranial hemorrhage suspected TECHNIQUE: Axial CT imaging of the [place] and from the skull baseto the superior mediastinum was obtained during arterial phase after theintravenous administration of IV contrast. Coronal, sagittal, and MIPS wereconstructed.COMPARISON: Same day CT headFINDINGS:CTA HEAD:The PICA origin is visualized bilaterally. The basilar artery is normal incaliber. Common origin of the left superior cerebellar and POWER BRAKE OPERATOR is noted.The superior cerebellar arteries are patent. The posterior cerebralarteries are patent. A right POWER BRAKE OPERATOR is identified. A small leftposterior communicating artery [...] reviewed this study and agree with theabove report.[facility]aredoSEDIMENTATION [id number] 01:00:08 Test Item Value Reference Range Interpretation Comments ESR (test code = See_Comment H [Automated message] 3526382612) The system [employer] generated this result transmitted ref erence range: 0 - 20 m m/HR. The reference r miky was not used to interpret this result as normal/abnor mal. Lab Interpretation (test Abnormal code = 51380-4) [facility] WO [id number] 00:39:04 No acute intracranial hemorrhage or mass [...] reviewed this study and agree with theabove report.[facility]OVID-[facility] (ID NOW RAPID TESTING)2020-06-26 22:58:15 Test Item Value Reference Range Interpretation Comments SARS-CoV-2 Rapid ID NOW Not Detected Not Detected (test code = 82591-4) ANTHONY (test code = ANTHONY) ID NOW COVID-19 Assay is an isothermal nucleic acid amplification test intended for the qualitative detection of nucleic acid from SARS-CoV-2 viral RNA in nasopharyngeal (SOLE STITCHER HAND) specimens. It is used under Emergency Use [...] indicated. Lab Interpretation Normal (test code = 31240-7) [facility] 1 [id number] 22:12:42 No acute cardiopulmonary abnormality. Preliminary Report [...] reviewed this study and agree with the abovereport.[facility]inalysis 2020-06-26 21:49:50 Test Item Value Reference Range Interpretation Comments APPEARANCE (test code = Clear Clear 7079781553) COLOR (test code = Yellow Yellow 0389987950) PH (test code = 4.8-8.0 8529745791) SP GRAVITY (test code = 1.003-1.030 8478493882) GLU U QUAL (test code = Normal Normal 8086397019) BLOOD (test code = Negative Negative 0453672748) KETONES (test code = Negative Negative 2724955908) PROTEIN (test code = Negative Negative 2887-8) UROBILIN (test code = Normal Normal 0220592129) BILIRUBIN (test code = Negative Negative 9069230661) NITRITE (test code = Negative Negative 2756966826) LEUK MURRAY (test code = Negative Negative 9122674914) RBC/HPF (test code = See_Comment [Autom ated message] 2708136907) The system [employer] generated this result transmitted ref erence range: 0 - 3 HP F. The reference range was not used to int erpret this result as normal/abnormal . WBC/HPF (test code = See_Comment [Autom ated message] 0337381347) The system [employer] generated this result transmitted ref erence range: 0 - 5 HP F. The reference range was not used to int erpret this result as normal/abnormal . BACTERIA (test code = Negative Negative 5261139011) MUCOUS (test code = Slight Negative LPF A 1044568610) SQ EPITH (test code = HPF 2835183808) Lab Interpretation (test Abnormal code = 90220-7) [id number] 21:18:44 Test Item Value Reference Range Interpretation Comments TROPONIN I (test <0.012 See_Comment [Automated code = 0379395691) message] The system which generated this result [...] ? Lab Interpretation Normal (test code = 06222-6) [facility] (NA, K, CL, CO2, GLUCOSE, BUN, CREATININE, CA)2020-06-26 21:07:49 Test Item Value Reference Range Interpretation Comments NA (test code = 141 mmol/L 135-145 7897290434) K (test code = 4.1 mmol/L 3.5-5.0 7403489082) CL (test code = 109 mmol/L 98-108 H 8631216455) CO2 TOTAL (test code = 23 mmol/L 23-31 2426411247) AGAP (test code = 2-16 8584710656) BUN (test code = 19 mg/dL 7-23 6103140342) GLUCOSE (test code = 112 mg/dL 70-110 H 6963236429) CREATININE (test code = 0.87 mg/dL 0.50-1.04 0776674983) CALCIUM (test code = 9.6 mg/dL 8.6-10.6 1870322680) eGFR (test code = mL/min/1.73m2 5458506244) ANTHONY (test code = ANTHONY) Association of [...] tests). Lab Interpretation Abnormal (test code = 41057-7) [facility] Function Panel (ALB, T.PRO, BILI T, BU/BC, ALT, AST, ALK PHOS)2020-06-26 21:07:28 Test Item Value Reference Range Interpretation Comments TOTAL BILI (test code = 8628628411) 0.3 mg/dL 0.1-1.1 BILI UNCON (test code = 2760285611) 0.1 mg/dL 0.1-1.1 BILI CONJ (test code = 9650302366) 0.0 mg/dL 0.0-0.3 T PROTEIN (test code = 3652970302) 7.4 g/dL 6.3-8.2 ALBUMIN (test code = 0508429588) 4.4 g/dL 3.5-5.0 ALK PHOS (test code = 9688363583) 138 U/L 34-122 H ALTv (test code = 1742-6) 32 U/L 5-35 AST(SGOT) (test code = 9803297553) 40 U/L 13-40 Lab Interpretation (test code = Abnormal 46280-1) [facility]oCBC with Lasqxxrphdkb1239-33-10 20:55:04 Test Item Value Reference Range Interpretation Comments WBC (test code = See_Comment [Automated 3090-2) message] The sy stem which generated this result transmitted reference range : 4.30 - 11.10 10*3/?L. The reference range was not used to interpret this result as normal/abnormal . RBC (test code = See_Comment L [Automated 199-8) message] The sy stem which generated this [...] RDW-SD (test code = 49.3 fL 39.0-49.9 68467-9) RDW-CV (test code = 13.7 % 12.0-15.5 788-0) PLT (test code = See_Comment [Automated 777-3) message] The sy stem which generated this result transmitted reference range : 166 - 358 10*3/ ?L. The reference r miky was not used to interpret this result as normal/abnormal . MPV (test code = 10.7 fL 9.5-12.9 72619-5) NRBC/100 WBC (test See_Comment [Automat ed code = 8751044268) message] The system which generated this result transmitted reference range : 0.0 - 10.0 /100 WBCs. The refer ence range was not u sed to interpret th is result as normal/abnormal . NRBC x10^3 (test code <0.01 See_Comment [Auto mated = 8585184874) message] The s ystem which generated this result transmitted reference range : 10*3/?L. The reference range was not used to interpret this result as normal/abnormal . GRAN MAT (NEUT) % 57.2 % (test code = 770-8) IMM GRAN % (test code 0.20 % = 9032909328) LYMPH % (test code = 31.8 % 736-9) MONO % (test code = 9.9 % 5905-5) EOS % (test code = 0.6 % 713-8) BASO % (test code = 0.3 % 706-2) GRAN MAT x10^3(ANC) 3.80 10*3/uL 1.88-7.09 (test code = 9785135598) IMM GRAN x10^3 (test <0.03 0.00-0.06 code = 7261769292) LYMPH x10^3 (test code 2.11 10*3/uL 1.32-3.29 = 731-0) MONO x10^3 (test code 0.66 10*3/uL 0.33-0.92 = 742-7) EOS x10^3 (test code = 0.04 10*3/uL 0.03-0.39 711-2) BASO x10^3 (test code <0.03 0.01-0.07 = 704-7) Lab Interpretation Abnormal (test code = 65345-4) [facility]. METABOLIC PANEL (39441)2020-06-01 11:34:39 Test Item Value Reference Range Interpretation Comments NA (test code = 137 mmol/L 135-145 0716942669) K (test code = 4.3 mmol/L 3.5-5.0 2646919409) CL (test code = 106 mmol/L 98-108 2564167061) CO2 TOTAL (test code = 26 mmol/L 23-31 2220728023) AGAP (test code = 2-16 4756414873) BUN (test code = 13 mg/dL 7-23 8407576842) GLUCOSE (test code = 81 mg/dL 70-110 1180653316) CREATININE (test code = 0.76 mg/dL 0.50-1.04 4902912866) TOTAL BILI (test code = 0.4 mg/dL 0.1-1.3 3694563263) CALCIUM (test code = 8.5 mg/dL 8.6-10.6 L 7459001215) T PROTEIN (test code = 6.0 g/dL 6.3-8.2 L 5642457448) ALBUMIN (test code = 3.5 g/dL 3.5-5.0 2240001398) ALK PHOS (test code = 128 U/L 34-122 H 4713570381) ALTv (test code = 54 U/L 5-35 H 1742-6) AST(SGOT) (test code = 51 U/L 13-40 H 9012064471) eGFR (test code = mL/min/1.73m2 2190386761) ANTHONY (test code = ANTHONY) Association of [...] tests). Lab Interpretation Abnormal (test code = 07913-4) [facility]oLAB ONLY COVID [id number] 02:48:13COVID DMT InterpretationInterpretation/Recommendations: Molecular NAAT Tests for [...] COVID-19 testing the patient has had at [facility], including molecular NAAT testing (more commonly known as PCR testing and Rapid ID Now testing) and antibody testing. It does not take into account any testing that a patient has had outside of the [facility] medical record. [facility] LABORATORY SERVICESCOVID ResultsSA RS-CoV-2 Rapid ID NOW (no units) ? ? Date ? Value ? 05/30/2020 ? Not Detected ? [facility] (NA, K, CL, CO2, GLUCOSE, BUN, CREATININE, CA)2020-05-31 15:23:27 Test Item Value Reference Range Interpretation Comments NA (test code = 137 mmol/L 135-145 0268944619) K (test code = 4.0 mmol/L 3.5-5.0 4983475407) CL (test code = 105 mmol/L 98-108 8367416681) CO2 TOTAL (test code 27 mmol/L 23-31 = 3989136633) AGAP (test code = 2-16 9568044332) BUN (test code = 14 mg/dL 7-23 6576592891) GLUCOSE (test code = 92 mg/dL 70-110 1715847331) CREATININE (test code 0.72 mg/dL 0.50-1.04 = 8321387899) CALCIUM (test code = 8.8 mg/dL 8.6-10.6 8433512063) eGFR (test code = mL/min/1.73m2 2113321906) ANTHONY (test code = ANTHONY) Association of [...] or urine or abnormalities in imaging tests). [facility] with Opuciuibkznf6071-06-13 12:40:08 Test Item Value Reference Range Interpretation Comments WBC (test code = See_Comment [Automated 0190-2) message] The sy stem which generated this result transmitted reference range : 4.30 - 11.10 10*3/?L. The reference range was not used to interpret this result as normal/abnormal . RBC (test code = See_Comment L [Automated 839-8) message] The sy stem which generated this [...] (test code = 51.6 fL 39.0-49.9 H 54978-9) RDW-CV (test code = 14.3 % 12.0-15.5 788-0) PLT (test code = See_Comment [Automated 777-3) message] The sy stem which generated this result transmitted reference range : 166 - 358 10*3/ ?L. The reference r miky was not used to interpret this result as normal/abnormal . MPV (test code = 10.0 fL 9.5-12.9 14268-1) NRBC/100 WBC (test See_Comment [Automat ed code = 5597722589) message] The system which generated this result transmitted reference range : 0.0 - 10.0 /100 WBCs. The refer ence range was not u sed to interpret th is result as normal/abnormal . NRBC x10^3 (test code <0.01 See_Comment [Auto mated = 6838830695) message] The s ystem which generated this result transmitted reference range : 10*3/?L. The reference range was not used to interpret this result as normal/abnormal . GRAN MAT (NEUT) % 40.2 % (test code = 770-8) IMM GRAN % (test code 0.40 % = 7030886397) LYMPH % (test code = 47.8 % 736-9) MONO % (test code = 10.5 % 5905-5) EOS % (test code = 0.9 % 713-8) BASO % (test code = 0.2 % 706-2) GRAN MAT x10^3(ANC) 2.15 10*3/uL 1.88-7.09 (test code = 0114953010) IMM GRAN x10^3 (test <0.03 0.00-0.06 code = 2473607129) LYMPH x10^3 (test code 2.55 10*3/uL 1.32-3.29 = 731-0) MONO x10^3 (test code 0.56 10*3/uL 0.33-0.92 = 742-7) EOS x10^3 (test code = 0.05 10*3/uL 0.03-0.39 711-2) BASO x10^3 (test code <0.03 0.01-0.07 = 704-7) Lab Interpretation Abnormal (test code = 64397-1) [facility] W WO [id number] 21:54:53 1. ?Nonobstructive left nephrolithiasis. No striated [...] eviewed this study and agree with theabove report.[facility] (ID NOW RAPID TESTING)2020-05-30 20:50:01 Test Item Value Reference Range Interpretation Comments SARS-CoV-2 Rapid ID NOW Not Detected Not Detected (test code = 17912-3) ANTHONY (test code = ANTHONY) ID NOW COVID-19 Assay is an isothermal nucleic acid amplification test intended for the qualitative detection of nucleic acid from SARS-CoV-2 viral RNA in nasopharyngeal (SOLE STITCHER HAND) specimens. It is used under Emergency Use [...] indicated. Lab Interpretation Normal (test code = 09449-7) [facility] Metabolic Panel (NA, K, CL, CO2, GLUCOSE, BUN, CREATININE, CA)2020-05-30 20:40:22 Test Item Value Reference Range Interpretation Comments NA (test code = 139 mmol/L 135-145 8771806657) K (test code = 4.0 mmol/L 3.5-5.0 6481236002) CL (test code = 105 mmol/L 98-108 9449520051) CO2 TOTAL (test code 25 mmol/L 23-31 = 6120982117) AGAP (test code = 2-16 1309311301) BUN (test code = 18 mg/dL 7-23 9240816516) GLUCOSE (test code = 100 mg/dL 70-110 2206267773) CREATININE (test code 0.66 mg/dL 0.50-1.04 = 2465133294) CALCIUM (test code = 9.2 mg/dL 8.6-10.6 0337048962) eGFR (test code = mL/min/1.73m2 3940902450) ANTHONY (test code = ANTHONY) Association of [...] or urine or abnormalities in imaging tests). [facility] (ALB, T.PRO, BILI T, BU/BC, ALT, AST, ALK PHOS)2020-05-30 20:40:22 Test Item Value Reference Range Interpretation Comments TOTAL BILI (test code = 4265091553) 0.4 mg/dL 0.1-1.1 BILI UNCON (test code = 7983704835) 0.2 mg/dL 0.1-1.1 BILI CONJ (test code = 5313520305) 0.0 mg/dL 0.0-0.3 T PROTEIN (test code = 0006605062) 7.7 g/dL 6.3-8.2 ALBUMIN (test code = 1194377635) 4.6 g/dL 3.5-5.0 ALK PHOS (test code = 3115356178) 158 U/L 34-122 H ALTv (test code = 1742-6) 70 U/L 5-35 H AST(SGOT) (test code = 8281858812) 46 U/L 13-40 H Lab Interpretation (test code = Abnormal 47675-9) [facility] 20:37:21 Test Item Value Reference Range Interpretation Comments APTT Patient (test See_Comment [Automat ed code = 3173-2) message] The system which generated this result transmitted reference range : 23 - 38 Seconds . The reference range was not used to interpr et this result as normal/abnormal . ANTHONY (test code = ANTHONY) The [facility] patient population mean normal value for aPTT is 30 seconds. Lab Interpretation Normal (test code = 76566-3) [facility]oProthrombin Time (PT) / [id number] 20:35:00 Test Item Value Reference Range Interpretation [...] tions. Lab Interpretation (test Normal code = 68395-0) [facility]inalysis2021-04-18 20:34:10 Test Item Value Reference Range Interpretation Comments APPEARANCE (test code = Clear Clear 2131036228) COLOR (test code = Yellow Yellow 8434304488) PH (test code = 4.8-8.0 2783000903) SP GRAVITY (test code = 1.003-1.030 6684470761) GLU U QUAL (test code = Normal Normal 8893590665) BLOOD (test code = Negative Negative 6354909682) KETONES (test code = Negative Negative 1987277276) PROTEIN (test code = Negative Negative 2887-8) UROBILIN (test code = Normal Normal 8608090892) BILIRUBIN (test code = Negative Negative 4625925745) NITRITE (test code = Negative Negative 8578254986) LEUK MURRAY (test code = 25/uL Negative A 4381809506) RBC/HPF (test code = See_Comment [Autom ated message] 8403268999) The system [employer] generated this result transmitted ref erence range: 0 - 3 HP F. The reference range was not used to int erpret this result as normal/abnormal . WBC/HPF (test code = See_Comment [Autom ated message] 8464027534) The system [employer] generated this result transmitted ref erence range: 0 - 5 HP F. The reference range was not used to int erpret this result as normal/abnormal . BACTERIA (test code = Few Negative A 5205923826) MUCOUS (test code = Slight Negative LPF A 3950080737) SQ EPITH (test code = HPF 2767559458) Lab Interpretation (test Abnormal code = 31078-8) [facility] with Fnqqivlaeeka4587-24-25 20:27:23 Test Item Value Reference Range Interpretation [...] RDW-SD (test code = 49.6 fL 39.0-49.9 08159-9) RDW-CV (test code = 14.1 % 12.0-15.5 788-0) PLT (test code = See_Comment [Automated 777-3) message] The sy stem which generated this result transmitted reference range : 166 - 358 10*3/ ?L. The reference r miky was not used to interpret this result as normal/abnormal . MPV (test code = 9.7 fL 9.5-12.9 87915-9) NRBC/100 WBC (test See_Comment [Automat ed code = 2873166283) message] The system which generated this result transmitted reference range : 0.0 - 10.0 /100 WBCs. The refer ence range was not u sed to interpret th is result as normal/abnormal . NRBC x10^3 (test code <0.01 See_Comment [Auto mated = 5943866744) message] The s ystem which generated this result transmitted reference range : 10*3/?L. The reference range was not used to interpret this result as normal/abnormal . GRAN MAT (NEUT) % 49.6 % (test code = 770-8) IMM GRAN % (test code 0.30 % = 1066209228) LYMPH % (test code = 38.7 % 736-9) MONO % (test code = 10.4 % 5905-5) EOS % (test code = 0.8 % 713-8) BASO % (test code = 0.2 % 706-2) GRAN MAT x10^3(ANC) 3.26 10*3/uL 1.88-7.09 (test code = 4491084561) IMM GRAN x10^3 (test <0.03 0.00-0.06 code = 5639707111) LYMPH x10^3 (test code 2.54 10*3/uL 1.32-3.29 = 731-0) MONO x10^3 (test code 0.68 10*3/uL 0.33-0.92 = 742-7) EOS x10^3 (test code = 0.05 10*3/uL 0.03-0.39 711-2) BASO x10^3 (test code <0.03 0.01-0.07 = 704-7) Lab Interpretation Abnormal (test code = 10211-4) [facility] [id number] 20:24:41 Test Item Value Reference Range Interpretation Comments LACTIC ACID (test code = 1.17 mmol/L 0.50-2.20 2572657516) Lab Interpretation (test code = Normal 48502-3) [facility]inalysis2021-04-15 00:29:10 Test Item Value Reference Range Interpretation Comments APPEARANCE (test code = Clear Clear 2468176551) COLOR (test code = Yellow Yellow 8411846124) PH (test code = 4.8-8.0 9640555080) SP GRAVITY (test code = 1.003-1.030 8698503789) GLU U QUAL (test code = Normal Normal 9769011749) BLOOD (test code = Negative Negative 9643819162) KETONES (test code = Negative Negative 9438248956) PROTEIN (test code = Negative Negative 2887-8) UROBILIN (test code = Normal Normal 7885295431) BILIRUBIN (test code = Negative Negative 2190150889) NITRITE (test code = Negative Negative 6652065127) LEUK MURRAY (test code = 25/uL Negative A 8060103265) RBC/HPF (test code = See_Comment [Autom ated message] 4736998148) The system [employer] generated this result transmitted ref erence range: 0 - 3 HP F. The reference range was not used to int erpret this result as normal/abnormal . WBC/HPF (test code = See_Comment H [Autom ated message] 2662091975) The system [employer] generated this result transmitted ref erence range: 0 - 5 HP F. The reference range was not used to int erpret this result as normal/abnormal . BACTERIA (test code = Few Negative A 2217854201) MUCOUS (test code = Slight Negative LPF A 3238740147) SQ EPITH (test code = HPF 3965208847) Lab Interpretation (test Abnormal code = 08435-0) [facility] (NA, K, CL, CO2, GLUCOSE, BUN, CREATININE, CA)2020-05-26 23:56:22 Test Item Value Reference Range Interpretation Comments NA (test code = 140 mmol/L 135-145 3669384851) K (test code = 3.8 mmol/L 3.5-5.0 0128710317) CL (test code = 104 mmol/L 98-108 4942327326) CO2 TOTAL (test code 27 mmol/L 23-31 = 1751753075) AGAP (test code = 2-16 6924088869) BUN (test code = 15 mg/dL 7-23 5403913409) GLUCOSE (test code = 95 mg/dL 70-110 5820017259) CREATININE (test code 0.60 mg/dL 0.50-1.04 = 0441111516) CALCIUM (test code = 9.0 mg/dL 8.6-10.6 8154760107) eGFR (test code = mL/min/1.73m2 3352221059) ANTHONY (test code = ANTHONY) Association of [...] or urine or abnormalities in imaging tests). [facility] (ALB, T.PRO, BILI T, BU/BC, ALT, AST, ALK PHOS)2020-05-26 23:55:42 Test Item Value Reference Range Interpretation Comments TOTAL BILI (test code = 7295316507) 0.3 mg/dL 0.1-1.1 BILI UNCON (test code = 4775115188) 0.2 mg/dL 0.1-1.1 BILI CONJ (test code = 4759351721) 0.0 mg/dL 0.0-0.3 T PROTEIN (test code = 5936625691) 7.5 g/dL 6.3-8.2 ALBUMIN (test code = 9540362890) 4.5 g/dL 3.5-5.0 ALK PHOS (test code = 2854024820) 165 U/L 34-122 H ALTv (test code = 1742-6) 110 U/L 5-35 H AST(SGOT) (test code = 8220011289) 66 U/L 13-40 H Lab Interpretation (test code = Abnormal 12288-8) [facility] with Vjwwzlojdscc8139-15-80 23:42:55 Test Item Value Reference Range Interpretation Comments WBC (test code = See_Comment [Automated 6690-2) message] The sy stem which generated this result transmitted reference range : 4.30 - 11.10 10*3/?L. The reference range was not used to interpret this result as normal/abnormal . RBC (test code = See_Comment L [Automated 939-8) message] The sy stem which generated this [...] RDW-SD (test code = 48.4 fL 39.0-49.9 83845-7) RDW-CV (test code = 13.6 % 12.0-15.5 788-0) PLT (test code = See_Comment [Automated 777-3) message] The sy stem which generated this result transmitted reference range : 166 - 358 10*3/ ?L. The reference r miky was not used to interpret this result as normal/abnormal . MPV (test code = 9.8 fL 9.5-12.9 37819-8) NRBC/100 WBC (test See_Comment [Automat ed code = 7048223218) message] The system which generated this result transmitted reference range : 0.0 - 10.0 /100 WBCs. The refer ence range was not u sed to interpret th is result as normal/abnormal . NRBC x10^3 (test code <0.01 See_Comment [Auto mated = 7929359603) message] The s ystem which generated this result transmitted reference range : 10*3/?L. The reference range was not used to interpret this result as normal/abnormal . GRAN MAT (NEUT) % 61.8 % (test code = 770-8) IMM GRAN % (test code 0.70 % = 6921649016) LYMPH % (test code = 27.3 % 736-9) MONO % (test code = 9.0 % 5905-5) EOS % (test code = 1.0 % 713-8) BASO % (test code = 0.2 % 706-2) GRAN MAT x10^3(ANC) 5.01 10*3/uL 1.88-7.09 (test code = 6569955967) IMM GRAN x10^3 (test 0.06 10*3/uL 0.00-0.06 code = 8971141941) LYMPH x10^3 (test code 2.22 10*3/uL 1.32-3.29 = 731-0) MONO x10^3 (test code 0.73 10*3/uL 0.33-0.92 = 742-7) EOS x10^3 (test code = 0.08 10*3/uL 0.03-0.39 711-2) BASO x10^3 (test code <0.03 0.01-0.07 = 704-7) Lab Interpretation Abnormal (test code = 03193-5) [facility] 19:25:57 Test Item Value Reference Range Interpretation Comments APPEARANCE (test code = Clear Clear 4688025140) COLOR (test code = Yellow Yellow 5230287654) PH (test code = 4.8-8.0 4587963104) SP GRAVITY (test code = >1.060 1.003-1.030 H 3384749473) GLU U QUAL (test code = Normal Normal 8251832331) BLOOD (test code = Negative Negative 1092648763) KETONES (test code = Negative Negative 8400410047) PROTEIN (test code = Negative Negative 2887-8) UROBILIN (test code = Normal Normal 6154624123) BILIRUBIN (test code = Negative Negative 3049026503) NITRITE (test code = Negative Negative 8809610357) LEUK MURRAY (test code = 25/uL Negative A 3593796649) RBC/HPF (test code = See_Comment [Autom ated message] 3805781841) The system [employer] generated this result transmitted ref erence range: 0 - 3 HP F. The reference range was not used to int erpret this result as normal/abnormal . WBC/HPF (test code = See_Comment [Autom ated message] 9405589922) The system [employer] generated this result transmitted ref erence range: 0 - 5 HP F. The reference range was not used to int erpret this result as normal/abnormal . BACTERIA (test code = Few Negative A 8281438661) MUCOUS (test code = Slight Negative LPF A 7228205753) SQ EPITH (test code = HPF 1038075371) Lab Interpretation (test Abnormal code = 96708-5) [facility] W [id number] 17:38:50CT Abdomen and Pelvis with intravenous contrast. [...] eachmeasuring 2 to 3 mm in size. [facility], Radiant Results Inft User - 05/13/2020 12:39 [...] eachmeasuring 2 to 3 mm in size. [facility] (ALB, T.PRO, BILI T, BU/BC, ALT, AST, ALK PHOS)2020-05-13 17:24:50 Test Item Value Reference Range Interpretation Comments TOTAL BILI (test code = 2645790822) 0.5 mg/dL 0.1-1.1 BILI UNCON (test code = 4031443663) 0.2 mg/dL 0.1-1.1 BILI CONJ (test code = 0782911637) 0.0 mg/dL 0.0-0.3 T PROTEIN (test code = 0646244605) 8.0 g/dL 6.3-8.2 ALBUMIN (test code = 0380647406) 4.7 g/dL 3.5-5.0 ALK PHOS (test code = 3477974515) 142 U/L 34-122 H ALTv (test code = 1742-6) 29 U/L 5-35 AST(SGOT) (test code = 3898183500) 41 U/L 13-40 H Lab Interpretation (test code = Abnormal 25383-2) [facility] Metabolic Panel (NA, K, CL, CO2, GLUCOSE, BUN, CREATININE, CA)2020-05-13 17:24:49 Test Item Value Reference Range Interpretation Comments NA (test code = 139 mmol/L 135-145 2019140111) K (test code = 3.9 mmol/L 3.5-5.0 4007029207) CL (test code = 111 mmol/L 98-108 H 5277412363) CO2 TOTAL (test code = 19 mmol/L 23-31 L 5553221023) AGAP (test code = 2-16 1758801925) BUN (test code = 15 mg/dL 7-23 3678068788) GLUCOSE (test code = 123 mg/dL 70-110 H 1244990719) CREATININE (test code = 0.83 mg/dL 0.50-1.04 6065105435) CALCIUM (test code = 9.5 mg/dL 8.6-10.6 9346166381) eGFR (test code = mL/min/1.73m2 6451371504) ANTHONY (test code = ANTHONY) Association of [...] tests). Lab Interpretation Abnormal (test code = 79678-4) [facility] [id number] 17:24:49 Test Item Value Reference Range Interpretation Comments LIPASE (test code = 7716292933) 25 U/L 0-220 Lab Interpretation (test code = Normal 09333-8) [facility] [id number] 17:06:22 Test Item Value Reference Range Interpretation Comments WBC (test code = See_Comment [Automated 6690-2) message] The sy stem which generated this result transmitted reference range : 4.30 - 11.10 10*3/?L. The reference range was not used to interpret this result as normal/abnormal . RBC (test code = See_Comment L [Automated 889-8) message] The sy stem which generated this [...] RDW-SD (test code = 46.4 fL 39.0-49.9 65230-4) RDW-CV (test code = 13.3 % 12.0-15.5 788-0) PLT (test code = See_Comment [Automated 777-3) message] The sy stem which generated this result transmitted reference range : 166 - 358 10*3/ ?L. The reference r miky was not used to interpret this result as normal/abnormal . MPV (test code = 10.4 fL 9.5-12.9 01897-4) NRBC/100 WBC (test See_Comment [Automat ed code = 6015998566) message] The system which generated this result transmitted reference range : 0.0 - 10.0 /100 WBCs. The refer ence range was not u sed to interpret th is result as normal/abnormal . NRBC x10^3 (test code <0.01 See_Comment [Auto mated = 3376259375) message] The s ystem which generated this result transmitted reference range : 10*3/?L. The reference range was not used to interpret this result as normal/abnormal . GRAN MAT (NEUT) % 69.6 % (test code = 770-8) IMM GRAN % (test code 0.40 % = 8217807797) LYMPH % (test code = 22.4 % 736-9) MONO % (test code = 7.1 % 5905-5) EOS % (test code = 0.4 % 713-8) BASO % (test code = 0.1 % 706-2) GRAN MAT x10^3(ANC) 5.65 10*3/uL 1.88-7.09 (test code = 8409165962) IMM GRAN x10^3 (test 0.03 10*3/uL 0.00-0.06 code = 2599830749) LYMPH x10^3 (test code 1.82 10*3/uL 1.32-3.29 = 731-0) MONO x10^3 (test code 0.58 10*3/uL 0.33-0.92 = 742-7) EOS x10^3 (test code = 0.03 10*3/uL 0.03-0.39 711-2) BASO x10^3 (test code <0.03 0.01-0.07 = 704-7) Lab Interpretation Abnormal (test code = 16281-5) [facility] ABDOMEN [id number] 18:12:20 Status post cholecystectomy. Mild extra hepatic [...] in the mid and distal aorta. [facility], Radiant Results Inft User - 12/08/2019 [...] can been expected finding inthe post cholecystectomy setting.[facility] 1 [id number] 18:03:08Findings and Impression: Clear lungs. No pleural [...] is normal. No acute osseous abnormality. [facility]. METABOLIC PANEL (23314)2019-12-08 17:36:00 Test Item Value Reference Range Interpretation Comments NA (test code = 139 mmol/L 135-145 9128288598) K (test code = 4.2 mmol/L 3.5-5 3135234151) CL (test code = 102 mmol/L 98-108 5340229766) CO2 TOTAL (test code = 27 mmol/L 23-31 6290779434) AGAP (test code = 2-16 5573839481) BUN (test code = 20 mg/dL 7-23 5072649045) GLUCOSE (test code = 105 mg/dL 70-110 7188021819) CREATININE (test code = 1.01 mg/dL 0.5-1.04 7474762701) TOTAL BILI (test code = 0.6 mg/dL 0.1-1.5 5352015782) CALCIUM (test code = 9.9 mg/dL 8.6-10.6 4251900472) T PROTEIN (test code = 8.5 g/dL 6.3-8.2 H 8152336312) ALBUMIN (test code = 4.5 g/dL 3.5-5 2427845228) ALK PHOS (test code = 118 U/L 34-122 5041154974) ALTv (test code = 32 U/L 5-35 1742-6) AST(SGOT) (test code = 39 U/L 13-40 6499052497) eGFR Calculation mL/min/1.73m2 (Non-) (test code = 2076578334) eGFR Calculation mL/min/1.73m2 () (test code = 9296253843) ANTHONY (test code = ANTHONY) Association of [...] tests). Lab Interpretation Abnormal (test code = 43623-4) [facility]2020-[facility] 17:20:00 Test Item Value Reference Range Interpretation Comments APPEARANCE (test code = Hazy Clear A 9702014054) COLOR (test code = Yellow Yellow 7118160806) PH (test code = 4.8-8.0 6144619128) SP GRAVITY (test code = 1.003-1.030 H 8702365616) GLU U QUAL (test code = Normal Normal 6319644866) BLOOD (test code = Negative Negative 9306412757) KETONES (test code = Negative Negative 5262734746) PROTEIN (test code = 30 mg/dL Negative A 2887-8) UROBILIN (test code = Normal Normal 3168728786) BILIRUBIN (test code = Negative Negative 0017733335) NITRITE (test code = Negative Negative 1369219432) LEUK MURRAY (test code = 75/uL Negative A 5507733012) RBC/HPF (test code = See_Comment [Autom ated message] 7815396406) The system [employer] generated this result transmitted ref erence range: 0 - 3 HP F. The reference range was not used to int erpret this result as normal/abnormal . WBC/HPF (test code = See_Comment [Autom ated message] 7900788176) The system [employer] generated this result transmitted ref erence range: 0 - 5 HP F. The reference range was not used to int erpret this result as normal/abnormal . BACTERIA (test code = Negative Negative 3774586356) MUCOUS (test code = Slight Negative LPF A 8546320334) SQ EPITH (test code = HPF 1928615675) HYAL CAST (test code = See_Comment [Aut omated message] 0557494316) The system [employer] generated this result transmitted ref erence range: <=2 LPF. The reference range was not used to int erpret this result as normal/abnormal . Lab Interpretation (test Abnormal code = 10403-8) [facility] WITH [id number] 17:05:00 Test Item Value Reference Range Interpretation [...] RDW-SD (test code = 43.5 fL 39-49.9 14196-9) RDW-CV (test code = 11.9 % 12-15.5 L 788-0) PLT (test code = See_Comment [Automated 777-3) message] The sy stem which generated this result transmitted reference range : 166 - 358 10*3/ ?L. The reference r miky was not used to interpret this result as normal/abnormal . MPV (test code = 10.9 fL 9.5-12.9 08274-8) NRBC/100 WBC (test See_Comment [Automat ed code = 4240939538) message] The system which generated this result transmitted reference range : 0.0 - 10.0 /100 WBCs. The refer ence range was not u sed to interpret th is result as normal/abnormal . NRBC x10^3 (test code <0.01 See_Comment [Auto mated = 2794975679) message] The s ystem which generated this result transmitted reference range : 10*3/?L. The reference range was not used to interpret this result as normal/abnormal . GRAN MAT (NEUT) % 64.8 % (test code = 770-8) IMM GRAN % (test code 0.40 % = 8123074550) LYMPH % (test code = 27.0 % 736-9) MONO % (test code = 6.5 % 5905-5) EOS % (test code = 0.9 % 713-8) BASO % (test code = 0.4 % 706-2) GRAN MAT x10^3(ANC) 4.35 10*3/uL 1.88-7.09 (test code = 3071419813) IMM GRAN x10^3 (test 0.03 10*3/uL 0-0.06 code = 6215425391) LYMPH x10^3 (test code 1.82 10*3/uL 1.32-3.29 = 731-0) MONO x10^3 (test code 0.44 10*3/uL 0.33-0.92 = 742-7) EOS x10^3 (test code = 0.06 10*3/uL 0.03-0.39 711-2) BASO x10^3 (test code 0.03 10*3/uL 0.01-0.07 = 704-7) Lab Interpretation Abnormal (test code = 59222-1) [facility]EL[facility] WO [id number] 16:59:351. ?Nonobstructive left nephrolithiasis. 2. ?No radiographic [...] PELVISLiver: Hepatic dome is not fully within xvkje-nc-fyag. No focal hepa ticlesions identified within limits [...] PELVISLiver: Hepatic dome is not fully within ujrzo-kz-vipq. No focal hepaticlesions identified within limits of [...] in the left lower lobe, thoughtto be unchanged.[facility] POCT [id number] 16:12:00 Test Item Value Reference Range Interpretation Comments POCT PREG (test code = 1605) negative On board controls acceptable with present C Line (test code = 3574) POCT PREG LOT # (test code = 3575) [id number] POCT PREG TEST DATE (test 05/12/2021 code = 3576) Lab Interpretation (test code = Normal 92833-7) [facility], [id number] 15:17:00 Test Item Value Reference Range Interpretation [...] 3267) Lab Interpretation (test code Abnormal = 64394-7) [facility] URINALYSIS, [id number] 15:17:00 Test Item Value Reference Range Interpretation [...] 3267) Lab Interpretation (test code Abnormal = 55835-1) [facility], BRAIN, [id number] 19:53:00With seizure protocolThin coronal cuts especially around [...] MDReport Verified Date/Time: 10/25/2018 19:53:41 Reading Location: [address] Neuro Reading Room EEG AWAKE AND [id number] 19:37:00For STAT EEG- after 5 PM weekdays, weekends and holidays, page the on-call EEG TechReason for exam:-& gt;altered mental statusDATE OF EXAMINATION: 10/25/18[facility] NO: [id number] 10: R56.9CPT CODE: 89361ORSNTNCCA SUMMARY:This is a digital EEG recorded with 32 input channels on a [employer] system and then reviewed with bipolar and [...] seizure for the symptom(s) of interest. HEMOGLOBIN [id number] 14:02:00 Test Item Value Reference Range Interpretation Comments HEMOGLOBIN A1C (BEAKER) (test code = 5.6 % 4.3-6.1 368) TSH/FREE T4 IF [id number] 06:11:00 Test Item Value Reference Range Interpretation Comments THYROID STIMULATING HORMONE 3.63 uIU/mL 0.35-4.94 (BEAKER) (test code = 772) VITAMIN B12 AND [id number] 06:11:00 Test Item Value Reference Range Interpretation Comments VITAMIN B12 (BEAKER) (test code = 272 pg/mL 213-816 774) FOLATE (BEAKER) (test code = 362) 9.4 ng/mL >=7.0 [id number] 05:58:00 Test Item Value Reference Range Interpretation Comments PHOSPHORUS (BEAKER) (test code = 3.6 mg/dL 2.3-4.7 604) [id number] 05:58:00 Test Item Value Reference Range Interpretation Comments MAGNESIUM (BEAKER) (test code = 2.1 mg/dL 1.6-2.6 627) BASIC METABOLIC [id number] 05:58:00 Test Item Value Reference Range Interpretation [...] NOT APPLICABLE FOR DIALYSIS PATIEN TS. LIPID [id number] 05:58:00 Test Item Value Reference Range Interpretation [...] 130-159 High 160-189 Very High >=190HEPATIC FUNCTION [id number] 05:58:00 Test Item Value Reference Range Interpretation [...] (test code = 413) CT, BRAIN, WITHOUT [id number] 00:33:00FINAL REPORT EXAM: CT, BRAIN, WITHOUT CONTRAST [...] on noncontrast CT of thehead. Signed: Dionicio Salazarort Verified Date/Time: 10/25/2018 00:33:20 Reading Location: [facility] [id number] Neuro Reading Room POCT-GLUCOSE [id number] 23:26:00 Test Item Value Reference Range Interpretation Comments POC-GLUCOSE METER 77 mg/dL 70-[address] [facility] [address] (BEAKER) (test code = [place] [address] 1538) SCREEN, [id number] 18:06:00 Test Item Value Reference Range Interpretation Comments TEST URINE (BEAKER) (test Negative code = 583) RAPID DRUG SCREEN, [id number] 16:54:00 Test Item Value Reference Range Interpretation [...] situations. Chain of custody not maintained. Some lcig-myk-dbnmolf medications, as well as adulterants, may cause [...] 0-100 (test code = 700) BASIC METABOLIC [id number] 15:41:00 Test Item Value Reference Range Interpretation [...] DATA TO CALCULA TE ESTIMATED GFR. TROPONIN [id number] 15:34:00 Test Item Value Reference Range Interpretation [...] acute neurological disease, and persistent tachyarrhythmia.HEPATIC FUNCTION [id number] 15:32:00 Test Item Value Reference Range Interpretation [...] (test code = 51 U/L 6-55 347) [id number] 15:27:00 Test Item Value Reference Range Interpretation Comments ETHANOL (BEAKER) (test code = 400) < mg/dL <=10 POCT-GLUCOSE [id number] 15:15:00 Test Item Value Reference Range Interpretation Comments POC-GLUCOSE METER 82 mg/dL 70-[address] [facility] [address] (BEAKER) (test code = [facility] [place] [facility] [address] 1538) RAD, CHEST, 1 VIEW, NON [id number] 15:13:00Reason for exam:->sobShould this be performed at the bedside?->YesFINAL REPORT INDICATION: sob COMPARISON: None TECHNIQUE: Single frontal view ofthe chest. FINDINGS: Lungs and pleura: Clear lungs. No effusion.Heart and mediastinum: Normal heart size. Unremarkable mediastinal contours.Osseous structures: No acute abnormality.Other: None. IMPRESSION: No acute intrathoracic abnormality. Signed: JR Escobar Robert MDReport Verified Date/Time: 10/24/2018 15:13:38 Reading Location: [facility] Radiology Reading Room CBC W/PLT COUNT & AUTO [id number] 15:06:00 Test Item Value Reference Range Interpretation [...] code = 2801) CT, SPINE, CERVICAL, WO [id number] 15:06:00Reason for exam:->r/o c- spine injuryIs the [...] MDReport Verified Date/Time: 10/24/2018 15:06:41 Reading Location: [facility] C013V Neuro Reading Room CT, BRAIN/STROKE [id number] 14:38:00Reason for exam:->r/o cvaIs the patient ?->UnknownWhat [...] at timeof this dictation Signed: Karen Shirley MDReport Verified Date/Time: 10/24/2018 14:38:49 Reading Location: [facility] B1 C013W Consult Reading Room "
[2022-10-10 13:50] LABS: Absolute Lymphocytes (CBC) 2.7 K/uL (0.7-4.9); Hematocrit 13.6 % (36.0-45.0); Lymphocytes % 24.7 % (15.3-44.8); MCV 98.6 fL (80-100); MPV 9.1 fL (7.6-11.3); Platelets 361 thou/uL (152-406); RBC Red Blood Cell Count 1.37 M/uL (3.86-4.86)
[2022-10-10 13:54] LABS: Albumin 3.3 g/dL (3.4-5.0); Bilirubin Total 0.3 mg/dL (0.2-1.0); Potassium 3.4 mEq/L (3.5-5.1); Protein, Total 8.2 g/dL (6.4-8.2)
[2022-10-10] MEDS ORDERED: ACETAMINOPHEN 500 MG TAB ONE (14:05)
[2022-10-10 14:06] LABS: Protime INR 1.13
--- NOTE | 2022-10-10 14:31 | RAD REPORT ---
EXAM DESCRIPTION: RAD - Chest Single View - 10/10/2022 2:14 pm CLINICAL HISTORY: weakness Chest pain. COMPARISON: Chest Single View dated 01/03/2021; Chest Single View dated 12/30/2020; Chest Pa And Lat (2 Views) dated 07/08/2020; Abdomen 1 View (KUB) dated 01/09/2017 FINDINGS: Portable technique limits examination quality. The lungs are grossly clear except for mild linear opacities in the right upper lobe laterally, presu mably scarring. The lungs are otherwise clear. The heart is upper limit normal in size. No displaced fractures.
--- NOTE | 2022-10-10 14:38 | RAD REPORT ---
EXAM DESCRIPTION: CT - Head C Spine Cap Vinay Zeng - 10/10/2022 2:24 pm CLINICAL HISTORY: Trauma, head and neck injury. Chest, abdomen and pelvis pain. fall COMPARISON: No comparisons TECHNIQUE: CT head without contrast. CT cervical spine without contrast with coronal and sagittal reformatted images. CT chest, abdomen and pelvis with IV contrast (approximately 100 mL nonionic IV contrast) with albrecht l and sagittal reformatted images of the spine. All CT scans are performed using dose optimization technique as appropriate and may include automated exposure control or mA/KV adjustment according to patient size. FINDINGS: CT HEAD WITHOUT CONTRAST: No intracranial hemorrhage, hydrocephalus or extra-axial fluid collection. No areas of brain edema o r midline shift. The paranasal sinuses and mastoids are clear. The calvarium is intact. CT CERVICAL SPINE WITHOUT CONTRAST: No fracture or subluxation. Mild lower cervical spondylosis. The prevertebral soft tissues are normal in thickness.The thyroid gland is enlarged with multiple nodules. CT CHEST, ABDOMEN, PELVIS WITH CONTRAST: Opacities are present in the right upper lobe laterally including 13 mm and 7 mm adjacent nodules.Mil d linear atelectasis is present both lung bases.No pneumothorax or pericardial/pleural fluid. No evidence of intra-abdominal visceral injury, free fluid or free air. Cholecystectomy clips. Puncta te stone inferior calyx left kidney. Sigmoid diverticulosis coli without diverticulitis. No fractures. Bilateral spondylolysis without spondylolisthesis seen lower lumbar spine. IMPRESSION: Negative for acute traumatic findings. Two adjacent noncalcified nodules right upper lobe laterally. Recommend follow-up CT chest 3 months f or monitoring.
--- NOTE | 2022-10-10 14:57 | RAD REPORT ---
EXAM DESCRIPTION: US - Extrem Venous W Compress Angel - 10/10/2022 2:44 pm CLINICAL HISTORY: PAIN Bilateral leg edema and swelling. COMPARISON: Extrem Venous W Compress Angel dated 02/03/2021 TECHNIQUE: Real-time sonographic interrogation of the left and right lower extremity deep venous sys tems was performed. FINDINGS: There is a small amount of chronic thrombus seen in the left popliteal vein. No acute DVT is seen. IMPRESSION: No acute DVT is evident. Small amount of chronic linear thrombus seen left popliteal vei n.
--- NOTE | 2022-10-10 15:24 | RAD REPORT ---
EXAM DESCRIPTION: RAD - Tib Fib Right - 10/10/2022 3:18 pm CLINICAL HISTORY: PAIN COMPARISON: <Comparisons> FINDINGS: Oblique fracture is present involving the proximal fibula. No additional fracture is seen.
[2022-10-10 15:35] LABS: Specific Gravity > 1.030 (1.005-1.030); Urine Bacteria 20-50 /HPF (<20); Urine Bilirubin NEGATIVE (Negative); Urine Blood 2+ (Negative); Urine Clarity Extremely Turbid (Clear); Urine Color Yellow (Yellow); Urine Glucose NEGATIVE (Negative); Urine Mucus Slight /HPF (None Seen); Urine Protein 1+ (Negative); Urine RBC 21-50 /HPF (None Seen); Urine Urobilinogen Normal (Normal)
[2022-10-10 15:39] LABS: Blood Morphology Comment NOT SEEN (NOT SEEN); Platelet Estimate ADEQ; White Blood Cell Scan OK (OK)
--- NOTE | 2022-10-10 16:40 | EDPHYS ---
Physician Documentation [facility] Name: Mckenna Avila Age: 47 yrs Sex: Female : 1975 Arrival Date: 10/10/2022 Time: 12:28 Bed 3 Private MD: ED Physician Willie Jay HPI: 10/10 13:15 This 47 yrs old Female presents to ER via Wheelchair with complaints of COVID exposure, cp Dizziness, Fall Injury. 13:15 The patient has experienced near-syncope, almost passed out, felt dizzy, felt generally cp weak. 13:15 Onset: The symptoms/episode began/occurred this past weekend. cp 13:15 Duration: The patient has had multiple episodes. Associated injury: Right lower cp extremity: right lower leg, pain, swelling, tenderness. Associated signs and symptoms: Pertinent positives: weakness, fall, Pertinent negatives: abdominal pain, chest pain. Current symptoms: general weakness, dizziness, right lower leg pain. Historical: - Allergies: 12:51 Ciprofloxacin; cm10 12:51 Omnicef; cm10 - PMHx: 12:51 chrons disease; Kidney stones; Rheumatoid Arthritis; GCA; cm10 - PSHx: 12:51 Cholecystectomy; hysterectomy; cm10 - Immunization history:: Adult Immunizations unknown. - Social history:: Smoking status: unknown. ROS: 13:20 Constitutional: Positive for fatigue, Negative for body aches, chills, fever, poor PO cp intake. 13:20 Eyes: Negative for injury, pain, redness, and discharge. cp 13:20 Cardiovascular: Negative for chest pain, palpitations. 13:20 Respiratory: Negative for cough, shortness of breath, wheezing. 13:20 Abdomen/GI: Negative for abdominal pain, vomiting, diarrhea, constipation. 13:20 : Negative for hematuria, burning with urination. 13:20 Neuro: Positive for dizziness, near syncope, weakness. 13:20 MS/extremity: Positive for pain, of the right lower leg, Negative for decreased range cp of motion, deformity, paresthesias. 13:20 All other systems are negative. Exam: 13:25 Head/Face: Normocephalic, atraumatic. cp 13:25 Constitutional: The patient appears in no acute distress, alert, awake, non-diaphoretic, non-toxic, well developed, well nourished, uncomfortable. 13:25 Eyes: Periorbital structures: appear normal, Pupils: equal, round, and reactive to light and accomodation, Extraocular movements: intact throughout, Conjunctiva: normal, no exudate, no injection, Sclera: no appreciated abnormality, Lids and lashes: appear normal, bilaterally. 13:25 ENT: External ear(s): are unremarkable, Nose: is normal, Mouth: Lips: moist, Oral mucosa: pink and intact, moist. 13:25 Neck: C-spine: vertebral tenderness, that is mild, appreciated at C5 and C6, crepitus, is not appreciated. 13:25 Chest/axilla: Inspection: normal. 13:25 Cardiovascular: Rate: normal, Rhythm: regular, Edema: is not appreciated, JVD: is not appreciated. 13:25 Respiratory: the patient does not display signs of respiratory distress, Respirations: labored breathing, is not present, intercostal retractions, are absent, Breath sounds: are clear throughout, no decreased breath sounds, no stridor, no wheezing. 13:25 Abdomen/GI: Inspection: abdomen appears normal, Bowel sounds: active, all quadrants, Palpation: abdomen is soft and non-tender, in all quadrants. 13:25 Back: pain, that is mild, of the lumbar area, ROM is normal. 13:25 Musculoskeletal/extremity: Extremities: grossly normal except: noted in the right lower leg: pain, tenderness. 13:25 Skin: cellulitis, is not appreciated, no rash present. 13:25 Neuro: Orientation: to person, place \T\ time. Mentation: is normal, Cerebellar function: is grossly normal, Motor: moves all fours, strength is normal, Sensation: is normal. 13:33 ECG was reviewed by the Attending Physician. cp Vital Signs: 12:47 BP 69 / 48; Pulse 60; Resp 16; Temp 97.5; Pulse Ox 100% ; Weight 74.84 kg; Height 5 ft. cm10 7 in. ; Pain 8/10; 13:09 BP 96 / 55; Pulse 45; Resp 10; Pulse Ox 100% on R/A; ld1 13:34 BP 82 / 60; Pulse 48; Resp 17; Pulse Ox 100% on R/A; ld1 13:51 BP 91 / 57; Pulse 49; Pulse Ox 100% on R/A; ap3 15:03 BP 106 / 72; Pulse 84; Resp 16; Pulse Ox 100% on R/A; ap3 16:36 Pulse 110; Resp 18; Pulse Ox 100% on R/A; ld1 16:46 BP 121 / 93; Pulse 99; Resp 18; Pulse Ox 100% on R/A; Pain 10/10; ld1 16:55 BP 144 / 91; Pulse 116; Resp 18; Pulse Ox 100% on R/A; Pain 10/10; ld1 19:30 BP 115 / 81; Pulse 107; Resp 16; Pulse Ox 100% on R/A; rv 20:00 BP 114 / 69; Pulse 91; Resp 14; Pulse Ox 100% on R/A; rv 20:30 BP 114 / 76; Pulse 88; Resp 14; Pulse Ox 100% on R/A; rv 21:00 BP 166 / 97; Pulse 90; Resp 16; Temp 98.7; Pulse Ox 100% on R/A; rv 21:30 BP 137 / 55; Pulse 91; Resp 16; Pulse Ox 100% on R/A; rv 22:00 BP 147 / 91; Pulse 84; Resp 17; Pulse Ox 100% ; rv 22:27 BP 126 / 75; Pulse 96; Resp 12; Pulse Ox 100% on R/A; rv 12:47 Body Mass Index 25.84 (74.84 kg, 170.18 cm) cm10 12:47 Pain Scale: Adult cm10 16:46 Pain Scale: Adult ld1 16:55 Pain Scale: Adult ld1 Dorris Coma Score: 20:00 Eye Response: spontaneous(4). Motor Response: obeys commands(6). Verbal Response: rv oriented(5). Total: 15. 21:00 Eye Response: spontaneous(4). Motor Response: obeys commands(6). Verbal Response: rv oriented(5). Total: 15. 22:00 Eye Response: spontaneous(4). Motor Response: obeys commands(6). Verbal Response: rv oriented(5). Total: 15. 22:27 Eye Response: spontaneous(4). Motor Response: obeys commands(6). Verbal Response: rv oriented(5). Total: 15. Procedures: 18:00 Splinting: Splint applied to right lower leg using Orthoglass splint, posterior leg. cp applied by tech. Examined by me, post splint application: neurovascular intact, Patient tolerated well. MDM: 12:55 Patient medically screened. cp 15:13 ED course: left msg on voicemail for DR Adams. cp 18:33 Data reviewed: vital signs, nurses notes, lab test result(s), EKG, radiologic studies, cp CT scan, plain films. 19:45 Transition of care: After a detail discussion of the patient's case, care is cp transferred to Aruna Beckford [facility]. 21:03 Differential diagnosis: URI, pneumonia UTI, covid, flu, anemia. Consideration of kb Admission/Observation Patient was admitted/placed on observation. Escalation of care including admission/observation considered. Management of patient was discussed with the following: Hospitalist: Sal LICEA accepts pt for admission under Dr Love. Counseling: I had a detailed discussion with the patient and/or guardian regarding the historical points, exam findings, and any diagnostic results supporting the discharge/admit diagnosis, lab results, radiology results, the need for further work-up and treatment in the hospital. 10/10 13:12 Order name: Blood Culture Adult (2) 10/10 13:12 Order name: CBC with Diff; Complete Time: 16:07 10/10 13:59 Interpretation: Normal except: WBC 11.00; RBC 1.37; HGB 4.6; HCT 13.6; MN% 15.3; MNA cp 1.7. 10/10 13:12 Order name: CMP; Complete Time: 13:57 10/10 13:58 Interpretation: Normal except: NA 132; K 3.4; GLUC 137; BUN 22; CRE 1.23; GFR 55; ALK cp 221; ALB 3.3; GLOB 4.9; A/G 0.7. 10/10 13:12 Order name: Lactate w/ 2H reflex if indic.; Complete Time: 13:57 10/10 13:58 Interpretation: Reviewed. 10/10 13:12 Order name: Protime (+inr); Complete Time: 14:28 10/10 13:12 Order name: Ptt, Activated; Complete Time: 14:28 10/10 13:12 Order name: Urinalysis w/ reflexes; Complete Time: 16:07 10/10 16:08 Interpretation: Normal except: [facility] Extremely Turbid; Urine SG > 1.030; UBLD 2+; UPROT cp 1+; UNIT 2+; UESTR 500; UWBC >50; URBC 21-50; UBACT 20-50; SUDEEP Cx 1+. 10/10 13:14 Order name: COVID-19 SARS RT PCR; Complete Time: 14:28 cp 10/10 14:28 Interpretation: Abnormal: SARSCOV2 RT PCR POSITIVE. 10/10 13:14 Order name: Influenza Screen (a \T\ B); Complete Time: 14:52 cp 10/10 13:14 Order name: Strep 10/10 13:58 Order name: Type And Screen 10/10 14:06 Order name: Throat Culture EDTX 10/10 14:58 Order name: Type And Screen 10/10 15:40 Order name: CBC Smear Scan; Complete Time: 16:07 EDMS 10/10 15:51 Order name: Urine Culture EDTX 10/10 17:11 Order name: Packed RBC Leukored EDTX 10/10 20:18 Order name: CBC with Diff; Complete Time: 21:53 kb 10/10 21:58 Order name: CBC with Diff la1 10/10 22:31 Order name: CBC with Automated Diff; Complete Time: 22:31 EDMS 10/10 13:12 Order name: Chest Single View XRAY; Complete Time: 14:52 cp 10/10 14:52 Interpretation: Report review. 10/10 14:07 Order name: US Extremity Venous W Compression Angel; Complete Time: 15:12 cp 10/10 14:07 Order name: CT Traumagram (Head C Spine CAP W Con); Complete Time: 14:52 cp 10/10 14:28 Order name: XRAY Tib Fib RIGHT; Complete Time: 16:07 cp 10/10 16:08 Interpretation: Report reviewed. 10/10 17:17 Order name: XRAY Femur RIGHT; Complete Time: 18:29 cp 10/10 18:29 Interpretation: Report reviewed. 10/10 13:12 Order name: EKG; Complete Time: 13:13 cp 10/10 13:12 Order name: Accucheck; Complete Time: 13:31 cp 10/10 13:12 Order name: Cardiac monitoring; Complete Time: 13:31 cp 10/10 13:12 Order name: EKG - Nurse/Tech; Complete Time: 13:31 cp 10/10 13:12 Order name: IV Saline Lock - Large Bore; Complete Time: 13:31 cp 10/10 13:12 Order name: Labs collected and sent; Complete Time: 13:31 cp 10/10 13:12 Order name: O2 Per Protocol; Complete Time: 13:31 cp 10/10 13:12 Order name: O2 Sat Monitoring; Complete Time: 13:31 cp 10/10 13:12 Order name: Vital Signs; Complete Time: 13:34 cp 10/10 15:55 Order name: Splint - Posterior Leg: short leg; Complete Time: 18:13 cp 10/10 17:16 Order name: Transfer - Initiate; Complete Time: 19:51 cp EC:33 Rate is 49 beats/min. Rhythm is regular. MT interval is normal. QRS interval is normal. cp QT interval is normal. T waves are Inverted in lead aVR. Interpreted by me. Reviewed by me. Administered Medications: 13:32 Drug: NS 0.9% IV 1000 ml Route: IV; Rate: 1 bolus; Site: right forearm; ld1 19:40 Follow up: IV Status: Completed infusion; IV Intake: 1000ml rv 14:11 Drug: Acetaminophen PO 1000 mg Route: PO; ld1 19:40 Follow up: Response: No adverse reaction rv 16:45 Drug: Potassium PO Effervescent Tablet 50 mEq Route: PO; ld1 19:40 Follow up: Response: No adverse reaction rv 17:03 Drug: fentaNYL (PF) IVP 25 mcg Route: IVP; Site: right forearm; ld1 19:41 Follow up: Response: No adverse reaction rv 17:37 Drug: Piperacillin-Tazobactam IVPB 3.375 grams Route: IVPB; Infused Over: 60 mins; ld1 Site: left hand; 18:14 Follow up: Response: No adverse reaction ld1 19:41 Follow up: Response: No adverse reaction; IV Status: Completed infusion; IV Intake: rv 100ml 19:20 Drug: fentaNYL (PF) IVP 25 mcg Route: IVP; Site: right forearm; rv 22:40 Follow up: Response: No adverse reaction rv 19:20 Drug: Ondansetron IVP 4 mg Route: IVP; Site: right forearm; rv 22:40 Follow up: Response: No adverse reaction rv 19:50 Drug: Promethazine IVP 12.5 mg Route: IVP; Site: right forearm; rv 22:40 Follow up: Response: No adverse reaction rv 22:15 Drug: morphine IVP or IV 2 mg Route: IVP; Infused Over: 4 mins; Site: right forearm; rv 22:40 Follow up: Response: No adverse reaction rv Disposition: 17:40 Co-signature as Attending Physician, Willie Jay DO I was immediately available on-site ms3 in the Emergency Department for consultation in the care of the patient. Disposition Summary: 10/10/22 21:02 Hospitalization Ordered Hospitalization Status: Inpatient Admission kb Provider: Jose Love Location: Intensive Care Unit kb Condition: Stable(10/10/22 21:02) kb Problem: new(10/10/22 21:02) kb Symptoms: are unchanged(10/10/22 21:02) kb Bed/Room Type: Standard Room Assignment: 8-(10/10/22 22:05) Diagnosis - Anemia, unspecified(10/10/22 21:02) kb - SARS-associated coronavirus as the cause of diseases classified elsewhere(10/10/22 kb 21:02) - UTI/ Urinary tract infection, site not specified(10/10/22 21:03) kb Forms: - Medication Reconciliation Form kb - SBAR form kb - Leadership Thank You Letter kb Signatures: Dispatcher [employer] EDAruna Hunter, EXHIBITS CURATOR-C EXHIBITS CURATOR-Ckb Nurys Velazquez RN RN Sal Reid, EXHIBITS CURATOR-C EXHIBITS CURATOR-Cla1 Andrés Marley PA PA cp Vicente, Ronaldo, RN RN Willie Elder DO DO ms3 Kimberlee Jay RN RN ld1 Francisco Javier Norman RN RN as6 Kiana Peres, RN RN cm10 Corrections: (The following items were deleted from the chart) 17:18 16:39 Doctor cp cp 19:10/09 13:25 Constitutional: The patient appears in no acute distress, alert, awake, cp non-diaphoretic, non-toxic, well developed, well nourished, uncomfortable, cp 10/10 19:50 10/09 13:25 Head/Face: Normocephalic, atraumatic. cp cp 10/10 19:10/09 13:25 Eyes: Periorbital structures: appear normal, Pupils: equal, round, and cp reactive to light and accomodation, Extraocular movements: intact throughout, Conjunctiva: normal, no exudate, no injection, Sclera: no appreciated abnormality, Lids and lashes: appear normal, bilaterally, cp 10/10 18:10/09 13:25 ENT: External ear(s): are unremarkable, Nose: is normal, Mouth: Lips: cp moist, Oral mucosa: pink and intact, moist, cp 10/10 18:10/09 13:25 Neck: C-spine: vertebral tenderness, that is mild, appreciated at C5 and cp C6, crepitus, is not appreciated, cp 10/10 18:10/09 13:25 Chest/axilla: Inspection: normal, cp cp 10/10 18:10/09 13:25 Cardiovascular: Rate: normal, Rhythm: regular, Edema: is not appreciated, cp JVD: is not appreciated, cp 10/10 18:10/09 13:25 Respiratory: the patient does not display signs of respiratory distress, cp Respirations: labored breathing, is not present, intercostal retractions, are absent, Breath sounds: are clear throughout, no decreased breath sounds, no stridor, no wheezing, cp 10/10 18:10/09 13:25 Abdomen/GI: Inspection: abdomen appears normal, Bowel sounds: active, all cp quadrants, Palpation: abdomen is soft and non-tender, in all quadrants, cp 10/10 18:10/09 13:25 Back: pain, that is mild, of the lumbar area, ROM is normal, cp cp 10/10 18:10/09 13:25 Musculoskeletal/extremity: Extremities: grossly normal except: noted in the cp right lower leg: pain, tenderness, cp 10/10 18:10/09 13:25 Neuro: Orientation: to person, place \T\ time. Mentation: is normal, cp Cerebellar function: is grossly normal, Motor: moves all fours, strength is normal, Sensation: is normal, cp 10/10 18:10/09 13:25 Skin: cellulitis, is not appreciated, no rash present. cp cp 10/10 21:02 16:39 [facility] cp kb 21:02 16:39 Higher level of care cp kb 21:02 16:39 Stable cp kb 21:02 16:39 new cp kb 21:02 16:39 have improved cp kb 21:02 16:39 Anemia, unspecified cp kb 21:02 17:18 Doctor cp kb 21:02 17:18 Displaced oblique fracture of shaft of right fibula, initial encounter for closed kb fracture cp 21:02 17:18 UTI/ Urinary tract infection, site not specified cp kb 21:02 17:18 SARS-associated coronavirus as the cause of diseases classified elsewhere cp kb 22:05 21:02 kb mw 10/11 18:27 10/10 17:00 Splinting: Splint applied to right lower leg using Orthoglass splint, cp posterior leg. applied by tech. Examined by me, post splint application: neurovascular intact, Patient tolerated well, cp
--- NOTE | 2022-10-10 16:40 | ER ---
Nurse's Notes [facility] Name: Mckenna Avila Age: 47 yrs Sex: Female : 1975 Arrival Date: 10/10/2022 Time: 12:28 Bed 3 Private MD: Diagnosis: Anemia, unspecified;SARS-associated coronavirus as the cause of diseases classified elsewhere;UTI/ Urinary tract infection, site not specified Presentation: 10/10 12:47 Chief complaint: Patient states: that her entire family had COVID lasts week and cm10 unknown if she has it. Pt states that she has dizziness with standing, nausea and fell Sunday. Pt reports right sided leg pain. Coronavirus screen: Vaccine status: Patient reports being unvaccinated. Client denies travel out of the [place] in the last 14 days. Ebola Screen: Patient denies travel to an Ebola-affected area in the 21 days before illness onset. No symptoms or risks identified at this time. Initial Sepsis Screen: Does the patient meet any 2 criteria? Mean Arterial Pressure (MAP) < 65. Does the patient have a suspected source of infection? No. Patient's initial sepsis screen is negative. Risk Assessment: Do you want to hurt yourself or someone else? Patient reports no desire to harm self or others. Onset of symptoms was October 10, 2022. 12:47 Method Of Arrival: Wheelchair cm10 12:47 Acuity: KEIKO 2 cm10 Historical: - Allergies: 12:51 Ciprofloxacin; cm10 12:51 Omnicef; cm10 - PMHx: 12:51 chrons disease; Kidney stones; Rheumatoid Arthritis; GCA; cm10 - PSHx: 12:51 Cholecystectomy; hysterectomy; cm10 - Immunization history:: Adult Immunizations unknown. - Social history:: Smoking status: unknown. Screenin:09 [facility] ED Fall Risk Assessment (Adult) History of falling in the last 3 months, ld1 including since admission Yes- single mechanical fall (1 pt) Confusion or Disorientation No (0 pts) Impaired Gait No (0 pts). Abuse screen: Denies threats or abuse. Denies injuries from another. Nutritional screening: No deficits noted. Tuberculosis screening: No symptoms or risk factors identified. Assessment: 13:09 General: Appears in no apparent distress. comfortable, Behavior is calm, cooperative, ld1 appropriate for age. Pain: Complains of pain in face, back and abdomen Pain does not radiate. Pain currently is 6 out of 10 on a pain scale. Quality of pain is described as throbbing. Neuro: Level of Consciousness is awake, alert, obeys commands, Oriented to person, place, time, situation. Cardiovascular: Capillary refill < 3 seconds Patient's skin is warm and dry. Rhythm is sinus bradycardia. Respiratory: Airway is patent Respiratory effort is even, unlabored. GI: Abdomen is round non-distended. : No signs and/or symptoms were reported regarding the genitourinary system. EENT: No signs and/or symptoms were reported regarding the EENT system. Derm: No signs and/or symptoms reported regarding the dermatologic system. Musculoskeletal: No signs and/or symptoms reported regarding the musculoskeletal system. 16:35 Reassessment: Unable to obtain secondary IV access - Charge nurse at bedside attempting ld1 ultrasound IV access. Notified ERP. Vital Signs: 12:47 BP 69 / 48; Pulse 60; Resp 16; Temp 97.5; Pulse Ox 100% ; Weight 74.84 kg; Height 5 ft. cm10 7 in. ; Pain 8/10; 13:09 BP 96 / 55; Pulse 45; Resp 10; Pulse Ox 100% on R/A; ld1 13:34 BP 82 / 60; Pulse 48; Resp 17; Pulse Ox 100% on R/A; ld1 13:51 BP 91 / 57; Pulse 49; Pulse Ox 100% on R/A; ap3 15:03 BP 106 / 72; Pulse 84; Resp 16; Pulse Ox 100% on R/A; ap3 16:36 Pulse 110; Resp 18; Pulse Ox 100% on R/A; ld1 16:46 BP 121 / 93; Pulse 99; Resp 18; Pulse Ox 100% on R/A; Pain 10/10; ld1 16:55 BP 144 / 91; Pulse 116; Resp 18; Pulse Ox 100% on R/A; Pain 10/10; ld1 19:30 BP 115 / 81; Pulse 107; Resp 16; Pulse Ox 100% on R/A; rv 20:00 BP 114 / 69; Pulse 91; Resp 14; Pulse Ox 100% on R/A; rv 20:30 BP 114 / 76; Pulse 88; Resp 14; Pulse Ox 100% on R/A; rv 21:00 BP 166 / 97; Pulse 90; Resp 16; Temp 98.7; Pulse Ox 100% on R/A; rv 21:30 BP 137 / 55; Pulse 91; Resp 16; Pulse Ox 100% on R/A; rv 22:00 BP 147 / 91; Pulse 84; Resp 17; Pulse Ox 100% ; rv 22:27 BP 126 / 75; Pulse 96; Resp 12; Pulse Ox 100% on R/A; rv 12:47 Body Mass Index 25.84 (74.84 kg, 170.18 cm) cm10 12:47 Pain Scale: Adult cm10 16:46 Pain Scale: Adult ld1 16:55 Pain Scale: Adult ld1 Juan Coma Score: 20:00 Eye Response: spontaneous(4). Motor Response: obeys commands(6). Verbal Response: rv oriented(5). Total: 15. 21:00 Eye Response: spontaneous(4). Motor Response: obeys commands(6). Verbal Response: rv oriented(5). Total: 15. 22:00 Eye Response: spontaneous(4). Motor Response: obeys commands(6). Verbal Response: rv oriented(5). Total: 15. 22:27 Eye Response: spontaneous(4). Motor Response: obeys commands(6). Verbal Response: rv oriented(5). Total: 15. ED Course: 12:31 Patient arrived in ED. im 12:43 Andrés Marley PA is PHCP. cp 12:43 Willie Jay DO is Attending Physician. cp 12:51 Triage completed. cm10 12:51 Arm band placed on Patient placed in an exam room, on a stretcher. cm10 13:09 Sagrario Jay, RN is Primary Nurse. ld1 13:09 Patient has correct armband on for positive identification. Placed in gown. Bed in low ld1 position. Call light in reach. Side rails up X2. supervisor mill on. Pulse ox on. NIBP on. Door closed. Noise minimized. Warm blanket given. 13:09 No provider procedures requiring assistance completed. Inserted saline lock: 20 gauge ld1 in right forearm, using aseptic technique. Blood collected. 13:32 Blood Culture Adult (2) Sent. ld1 13:32 CBC with Diff Sent. ld1 13:32 CMP Sent. ld1 13:32 Lactate w/ 2H reflex if indic. Sent. ld1 13:32 Protime (+inr) Sent. ld1 13:32 Ptt, Activated Sent. ld1 13:44 COVID swab sent to lab. Flu and/or RSV swab sent to lab. Strep swab sent to lab. tm3 13:53 Strep Sent. ld1 13:53 Influenza Screen (a \T\ B) Sent. ld1 13:53 COVID-19 SARS RT PCR Sent. ld1 13:53 Blood Culture Adult (2) Sent. ld1 13:53 CBC with Diff Sent. ld1 13:53 CMP Sent. ld1 13:53 Lactate w/ 2H reflex if indic. Sent. ld1 13:53 Protime (+inr) Sent. ld1 13:53 Ptt, Activated Sent. ld1 14:16 Chest Single View XRAY In Process Unspecified. EDMS 14:25 CT Traumagram (Head C Spine CAP W Con) In Process Unspecified. EDMS 14:46 US Extremity Venous W Compression Angel In Process Unspecified. EDMS 15:11 Urine collected: clean catch specimen, cloudy, deborah colored. tm3 15:19 XRAY Tib Fib RIGHT In Process Unspecified. EDMS 16:49 Type And Screen Sent. iw 16:50 Inserted saline lock: 22 gauge in left hand, using aseptic technique. iw 16:51 T\T\S collected, blood band applied to patient. iw 17:58 XRAY Femur RIGHT In Process Unspecified. EDMS 20:25 PHCP role handed off by Andrés Marley PA cp 20:25 Aruna Beckford FNP-C is PHCP. cp 21:02 Jose Love MD is Hospitalizing Provider. kb 22:15 Inserted saline lock: 20 gauge in left forearm, using aseptic technique. Blood rv collected. 22:40 Provided Education on: Blood Transfusion. rv 22:40 Patient admitted, IV remains in place. rv Administered Medications: 13:32 Drug: NS 0.9% IV 1000 ml Route: IV; Rate: 1 bolus; Site: right forearm; ld1 19:40 Follow up: IV Status: Completed infusion; IV Intake: 1000ml rv 14:11 Drug: Acetaminophen PO 1000 mg Route: PO; ld1 19:40 Follow up: Response: No adverse reaction rv 16:45 Drug: Potassium PO Effervescent Tablet 50 mEq Route: PO; ld1 19:40 Follow up: Response: No adverse reaction rv 17:03 Drug: fentaNYL (PF) IVP 25 mcg Route: IVP; Site: right forearm; ld1 19:41 Follow up: Response: No adverse reaction rv 17:37 Drug: Piperacillin-Tazobactam IVPB 3.375 grams Route: IVPB; Infused Over: 60 mins; ld1 Site: left hand; 18:14 Follow up: Response: No adverse reaction ld1 19:41 Follow up: Response: No adverse reaction; IV Status: Completed infusion; IV Intake: rv 100ml 19:20 Drug: fentaNYL (PF) IVP 25 mcg Route: IVP; Site: right forearm; rv 22:40 Follow up: Response: No adverse reaction rv 19:20 Drug: Ondansetron IVP 4 mg Route: IVP; Site: right forearm; rv 22:40 Follow up: Response: No adverse reaction rv 19:50 Drug: Promethazine IVP 12.5 mg Route: IVP; Site: right forearm; rv 22:40 Follow up: Response: No adverse reaction rv 22:15 Drug: morphine IVP or IV 2 mg Route: IVP; Infused Over: 4 mins; Site: right forearm; rv 22:40 Follow up: Response: No adverse reaction rv Medication: 22:26 VIS not applicable for this client. rv Intake: 19:40 IV: 1000ml; Total: 1000ml. rv 19:41 IV: 100ml; Total: 1100ml. rv Outcome: 16:39 ER care complete, transfer ordered by . cp 21:02 Decision to Hospitalize by Provider. kb 22:39 Admitted to ICU accompanied by nurse, via stretcher, room 8, on monitor, with chart, rv Report called to SAGRARIO SHEEHAN 22:39 Condition: good 22:39 Instructed on the need for admit. 22:40 Patient left the ED. rv Signatures: Dispatcher [employer] EDMS Aruna Beckford, TOM FUP-Jarred Glover 3 Beverly Troncoso, RN Andrés Lazo PA PA cp Prokisch, Amanda, RN RN ap3 Pepito Centeno RN RN rv Sagrario Jay RN RN ld1 Jessica Rahman Clarissa RN RN cm10
[2022-10-10] MEDS ORDERED: POTASSIUM 25 MEQ EFFERV TAB ONE (16:49)
[2022-10-10] MEDS ORDERED: FENTANYL CITR 100 MCG/2 ML ONE ×3 (17:11→19:19)
[2022-10-10] MEDS ORDERED: PIPERACIL/TAZO 3.375 GM VIAL IV ONE (17:38)
[2022-10-10] MEDS ORDERED: NA CHLORIDE 0.9% 250 ML ONE (17:38)
[2022-10-10] MEDS ORDERED: NA CHLORIDE 0.9% 100 ML ONE (17:38)
[2022-10-10] MEDS ORDERED: ONDANSETRON 4 MG/2 ML VIAL ONE ×2 (17:57→19:19)
--- NOTE | 2022-10-10 18:05 | RAD REPORT ---
EXAM DESCRIPTION: RAD - Femur Right - 10/10/2022 5:56 pm CLINICAL HISTORY: PAIN COMPARISON: No comparisons FINDINGS: Mild right hip osteoarthritis. No acute fracture or dislocation. No AVN is seen.
[2022-10-10] MEDS ORDERED: PROMETHAZINE INJ 25 MG/ML AMP ONE (19:54)
[2022-10-10 21:29] LABS: Absolute Lymphocytes (CBC) 1.5 K/uL (0.7-4.9); Hematocrit 35.2 % (36.0-45.0); Lymphocytes % 19.4 % (15.3-44.8); MCV 97.2 fL (80-100); MPV 8.5 fL (7.6-11.3); Platelets 263 thou/uL (152-406); RBC Red Blood Cell Count 3.62 M/uL (3.86-4.86)
[2022-10-10] MEDS ORDERED: MORPHINE 2 MG/ML SYR IV PRN (21:40)
[2022-10-10] MEDS ORDERED: MORPHINE 2 MG/ML SYR ONE (22:06)
--- NOTE | 2022-10-10 22:23 | P.HP ---
Certification for Inpatient Patient admitted to: Inpatient With expected LOS: >2 Midnights Patient will require the following post-hospital care: None Practitioner: I am a practitioner with admitting privileges, knowledge of patient current condition, hospital course, and medical plan of care. Services: Services provided to patient in accordance with Admission requirements found in Title 42 Section 412.3 of the Code of Federal Regulations Patient History Date of Service: 10/10/22 Reason for admission: Anemia, UTI, COVID History of Present Illness: 47-year-old female with history of DVT on chronic anticoagulation, Crohn's, previous CVA, rheumatoid arthritis presents emergency department with chief complaint of dizziness with standing, nausea and fall on Sunday with right leg pain. She reports that on Sunday she was feeling dizzy/lightheaded and tripped injuring her right lower extremity, also reports dizziness when standing. She denies any melena, hematochezia, hematemesis. Last EGD/colonoscopy was approximate 1 year ago normal per patient. She sees a local GI doctor Dr. Khalil. She was evaluated in the emergency department her labs are significant for hemoglobin of 4.6 medic at 13.6 white blood cell count 11.0 platelets 361 BUN 22 creatinine 1.23 GFR 55 UA with leuk esterase, red blood cell, white blood cell, bacteria, nitrite positive. Initially patient was hypotensive, this improved after 1 L bolus IV fluid. Initially 2 unit PRBC ordered in ED, repeat obtained immediately after first unit came back with hemoglobin of 12.0 hematocrit 35.2, initial specimen was rerun revealing hemoglobin 4.6, will have nursing staff perform straight stick to confirm recent hemoglobin of 12.0. She had imaging in the ER including chest x-ray was negative for acute findings DVT study lower extremities which was negative for acute DVT but did show small amount of chronic linear thrombus seen in left popliteal vein. X-ray of the right tip/fib which revealed oblique fibular fracture, patient was placed in splint, CT head/C-spine/chest/abdomen/pelvis was performed which was negative for acute traumatic findings, does mention 2 adjacent noncalcified nodules right upper lobe laterally recommend follow-up CT chest in 3 months. ED provider wishes to admit for anemia, UTI, hypotension, tachycardia. Lactic acid was 1.4, blood cul tures were obtained in the emergency department. Patient was given IV Zosyn Allergies cefdinir [From Omnicef] Allergy (Verified 07/27/22 08:24) bloody diarrhea ciprofloxacin [From Cipro] Allergy (Verified 07/27/22 08:24) red rash/hives and hot at iv site Home Medications: Dicyclomine HCl 20 mg PO TID 07/08/20 Gabapentin 600 mg PO TID 07/08/20 LORazepam [Ativan*] 1 mg PO TID 07/08/20 Famotidine [Pepcid] 1 tab PO BEDTIME 07/09/20 Tizanidine HCl [Zanaflex] 4 mg PO TID 12/30/20 methocarbamoL [Methocarbamol] 750 mg PO BEDTIME 12/30/20 Fluticasone/Vilanterol [Breo Ellipta 200-25 Mcg INH] 1 puff IH DAILY 04/26/21 Hydrocodone/Acetaminophen [Hydrocodone-Acetamin 10-325 mg] 1 tab PO TID 04/26/21 Rivaroxaban [Xarelto] 20 mg PO DAILY 04/26/21 Ondansetron [Zofran (Odt)*] 8 mg PO Q6H PRN #30 tab 05/04/21 Promethazine Tab [Phenergan*] 25 mg PO Q6HP PRN #30 tab 05/04/21 Albuterol Sulfate [Proair Digihaler] 90 mcg IH QIDP PRN 10/14/21 azaTHIOprine [Imuran*] 150 mg PO DAILY 10/14/21 inFLIXimab [Infliximab] 700 mg IV SEECOM 10/14/21 Codeine/APAP [Tylenol #3*] 1 tab PO Q6HP PRN #15 tab 10/18/21 Cyclosporine [Restasis] 1 drop EACH EYE BID 04/20/22 Rabeprazole Sodium 20 mg PO DAILY 04/20/22 Tamsulosin [Flomax] 0.4 mg PO DAILY 04/20/22 predniSONE [Prednisone] 40 mg PO DAILY 04/20/22 - Past Medical/Surgical History Diabetic: No -: Crohn's disease -: Kidney Stones -: Cdiff history -: anxiety -: RA -: DVT -: hysterectomy -: kidney stone removed -: cholecystectomy -: tubal ligation Psychosocial/ Personal History: Lives at home with family - Family History Mother -: Hypertension Father -: Hypertension - Social History Smoking Status: Never smoker Alcohol use: No CD- Drugs: Yes Caffeine use: Yes Place of Residence: Home Review of Systems 10-point ROS is otherwise unremarkable Respiratory: SOB with Excertion Cardiovascular: Light Headedness Physical Examination - Physical Exam General: Alert, In no apparent distress, Oriented x3 HEENT: Atraumatic, PERRLA, Mucous membr. moist/pink, EOMI, Sclerae nonicteric Neck: Supple, 2+ carotid pulse no bruit, No LAD, Without JVD or thyroid abnormality Respiratory: Clear to auscultation bilaterally, Normal air movement Cardiovascular: Regular rate/rhythm, Normal S1 S2 Capillary refill: <2 Seconds Gastrointestinal: Normal bowel sounds, No tenderness Musculoskeletal: No tenderness, Other (Splint present right lower extremity CMS intact) Integumentary: No rashes Neurological: Normal speech, Normal strength at 5/5 x4 extr, Normal tone, Normal affect Lymphatics: No axilla or inguinal lymphadenopathy - Studies Laboratory Data (last 24 hrs) 10/10/22 10/10/22 10/10/22 21:15 13:23 13:16 WBC 7.90 Hgb 12.0 D Hct 35.2 L Plt Count 263 D PT 12.4 INR 1.13 APTT 42.4 H Sodium 132 L Potassium 3.4 L BUN 22 H Creatinine 1.23 H Glucose 137 H Total Bilirubin 0.3 AST 15 ALT 39 Alkaline Phosphatase 221 H 10/10/22 13:16 WBC 11.00 H Hgb 4.6 L* Hct 13.6 L Plt Count 361 PT INR APTT Sodium Potassium BUN Creatinine Glucose Total Bilirubin AST ALT Alkaline Phosphatase Microbiology Data (last 24 hrs): 10/10/22 13:35 Nasopharnyx Influenza Type A Antigen Screen - Final 10/10/22 13:35 Nasopharnyx Influenza Type B Antigen Screen - Final 10/10/22 13:35 Throat Group A Streptococcus Rapid Screen - Final Assessment and Plan - Plan Assessment: Anemia-suspect acute blood loss anemia-likely GI bleed with history of Crohn's on anticoagulation Sepsis secondary to UTI History of DVT on Xarelto History of CVA Rheumatoid arthritis Right oblique fibular fracture Incidental finding pulmonary nodules Plan: Anemia-suspect acute blood loss anemia-likely GI bleed with history of Crohn's on anticoagulation Given 1 unit PRBC in ED, repeat hemoglobin 12. Continue to monitor H&H, GI consulted will perform bowel prep this evening, n.p.o. after 5 AM for EGD/colonoscopy. Denies melena, hematochezia, hematemesis currently. No significant abdominal pain, CT negative for abdominal findings. Sepsis secondary to UTI Continue Rocephin, reviewed previous cultures. Blood cultures lactate obtained, lactate 1.4. History of DVT on Xarelto Hold Xarelto History of CVA Continue home medications hold any antiplatelet/anticoagulation. Rheumatoid arthritis Continue home medications hold any NSAIDs. Right oblique fibular fracture Splint in place recommend outpatient follow-up once discharged. Incidental finding pulmonary nodules Discussed with patient recommend follow-up CT in 3 months to evaluate for stability. DVT PPX: SCD Code status: Full Discharge Plan: Home Plan to discharge in: 48 Hours - Advance Directives Does patient have a Living Will: No Does patient have a Durable POA for Healthcare: No - Code Status/Comfort Care Code Status Assessed: Yes (Full code) Critical Care: No Time Spent Managing Pts Care (In Minutes): 70
[2022-10-10 22:29] LABS: Absolute Lymphocytes (CBC) 1.7 K/uL (0.7-4.9); Hematocrit 34.8 % (36.0-45.0); Lymphocytes % 20.8 % (15.3-44.8); MCV 96.2 fL (80-100); MPV 8.6 fL (7.6-11.3); Platelets 194 thou/uL (152-406); RBC Red Blood Cell Count 3.62 M/uL (3.86-4.86)
[2022-10-10] MEDS ORDERED: BISACODYL E.C. 5 MG TAB PO ONE (22:34)
[2022-10-10] MEDS ORDERED: SODIUM CHLORIDE 0.9% 10ML INJ IV PRN (22:34)
[2022-10-10] MEDS ORDERED: GOLYTELY 4000 ML PO SCH (22:34)
[2022-10-10] MEDS ORDERED: MAGNESIUM CITRATE 300 ML BOT PO SCH (22:34)
[2022-10-10] MEDS ORDERED: MORPHINE 2 MG/ML SYR IV ONE (23:13)
[2022-10-10 23:43] LABS: Hematocrit 35.2 % (36.0-45.0)
[2022-10-11] MEDS: ONDANSETRON 4 MG/2 ML VIAL IV PRN ×2 (00:05→05:50)
[2022-10-11] MEDS: PROMETHAZINE INJ 25 MG/ML AMP IV PRN ×4 (01:34→21:49)
[2022-10-11 05:02] LABS: Absolute Lymphocytes (CBC) 1.4 K/uL (0.7-4.9); Hematocrit 34.7 % (36.0-45.0); Lymphocytes % 21.5 % (15.3-44.8); MCV 95.4 fL (80-100); MPV 8.3 fL (7.6-11.3); Platelets 258 thou/uL (152-406); RBC Red Blood Cell Count 3.64 M/uL (3.86-4.86)
--- NOTE | 2022-10-11 07:12 | P.PN ---
Date of Service: 10/11/22 Subjective: reports feeling warm/overheated this morning, reports abdominal pain and "pain all over" pulled IVs overnight, avoids answering when asked why did she pull IV. Asking for IV pain medication nausea with vomiting this morning / overnight after golytely Breathing okay on room air 100.7 temp yesterday ROS: 10 point ROS as noted above, otherwise negative Physical Exam: GEN: Alert, oriented, appears uncomfortable HEENT: Normal conjunctiva, sclera anicteric CV: Regular rate and rhythm, no edema Pulm: Nonlabored respirations on room air, clear bilaterally ABD: Soft, mild-mod diffuse tenderness, nondistended MSK: Splint present right lower extremity Integumentary: No rashes Neuro: Normal speech, answering in short sentences, moves all extremities, no focal deficit vitals reviewed Problem List: Anemia, h/o GI Bleed history of Crohn's Sepsis secondary to UTI Covid-19 positive Right oblique fibular fracture Incidental finding pulmonary nodules h/o DVT on Xarelto h/o CVA h/o Rheumatoid arthritis h/o c.diff colitis x4 in past Anemia, h/o GI Bleed history of Crohn's Denies melena, hematochezia, hematemesis. reports generalized abdominal pain, nonspecific CT negative for acute abdominal findings. s/p 1 uPRBC in ED, hgb up to 12 from 4 repeat hgb stable at 12, and patient denies bleeding suspect initial hgb not accurate; was not redrawn xarelto held in ED / on admission GI consulted NPO for possible EGD/colonoscopy Sepsis secondary to UTI Urine cx: +GNR Blood cx: pending Continue empiric Rocephin (10/10-) 100.7 temp 10/10 pm, +leukocytosis improving ID consulted given h/o MDR enterococcus, h/o cdiff, COVID+ Incidental finding pulmonary nodules CT (10/11): Two adjacent noncalcified nodules right upper lobe laterally f/u CT in 3 months as outpatient to evaluate for stability. History of DVT on Xarelto. Hold Xarelto given bleed Rheumatoid arthritis. Continue home medications as appropriate Right oblique fibular fracture. Splint in place. f/u outpatient VTE: SCD given suspected bleed, restart home xarelto per GI Code: Full Dispo: Home , ~2 days
[2022-10-11 07:45] LABS: Albumin 3.2 g/dL (3.4-5.0); Bilirubin Total 0.4 mg/dL (0.2-1.0); Potassium 3.5 mEq/L (3.5-5.1); Protein, Total 7.9 g/dL (6.4-8.2)
--- NOTE | 2022-10-11 08:49 | RAD REPORT ---
EXAM DESCRIPTION: RADChest Single View10/11/2022 8:16 am CLINICAL HISTORY: Picc line placement COMPARISON: Chest Single View dated 10/10/2022; Chest Single View dated 01/03/2021; Chest Single View dated 12/30/2020; Chest Pa And Lat (2 Views) dated 07/08/2020 TECHNIQUE: Portable AP view of the chest. FINDINGS: Right arm PICC has been placed with catheter tip projecting over the distal SVC. The lungs are clear. No pneumothorax or effusion. The cardiomediastinal contours are unremarkable. IMPRESSION: Right arm PICC in place with catheter tip projecting over the distal SVC. No acute cardi opulmonary process.
[2022-10-11] MEDS: CEFTRIAXONE 1,000 MG in NA CHLORIDE 0.9% 50 ML IVPB SCH (09:05)
[2022-10-11] MEDS: NA CHLORIDE 0.9% 1,000 ML IV SCH ×2 (09:05→20:20)
[2022-10-11] MEDS: PANTOPRAZOLE 40 MG INJ IVP SCH ×2 (09:05→21:14)
[2022-10-11] MEDS: MORPHINE 2 MG/ML SYR IV PRN ×3 (09:06→21:12)
[2022-10-11] MEDS: Mupirocin NASAL 2 APPL/1 GM TUBE NAS SCH ×2 (09:06→21:17)
--- NOTE | 2022-10-11 09:16 | P.CNS ---
Date of Consult: 10/11/22 Reason for Consult: covid, UTI, hx MDR Chief Complaint: Anemia, UTI, COVID History of Present Illness: Patient is a 47-year-old female with a past medical history of Crohn's disease, rheumatoid arthritis, history of DVT on anticoagulation, prior CVA who presented to the ED with complaints of dizziness, nausea and mechanical fall resulting in right leg injury. Initial labs from ED hemoglobin of 4.6, WBC 11, BUN 22, creatinine 1.23. x-ray of the right tibia-fibula revealed oblique fibular fracture. Patient was found to have COVID. Urine cultures growing gram- negative rods. Infectious disease was consulted. Allergies cefdinir [From Omnicef] Allergy (Verified 07/27/22 08:24) bloody diarrhea ciprofloxacin [From Cipro] Allergy (Verified 07/27/22 08:24) red rash/hives and hot at iv site Home medications list reviewed: Yes Home Medications: Dicyclomine HCl 20 mg PO TID 07/08/20 Gabapentin 600 mg PO TID 07/08/20 LORazepam [Ativan*] 1 mg PO TID 07/08/20 Famotidine [Pepcid] 1 tab PO BEDTIME 07/09/20 Tizanidine HCl [Zanaflex] 4 mg PO TID 12/30/20 methocarbamoL [Methocarbamol] 750 mg PO BEDTIME 12/30/20 Fluticasone/Vilanterol [Breo Ellipta 200-25 Mcg INH] 1 puff IH DAILY 04/26/21 Hydrocodone/Acetaminophen [Hydrocodone-Acetamin 10-325 mg] 1 tab PO TID 04/26/21 Rivaroxaban [Xarelto] 20 mg PO DAILY 04/26/21 Ondansetron [Zofran (Odt)*] 8 mg PO Q6H PRN #30 tab 05/04/21 Promethazine Tab [Phenergan*] 25 mg PO Q6HP PRN #30 tab 05/04/21 Albuterol Sulfate [Proair Digihaler] 90 mcg IH QIDP PRN 10/14/21 azaTHIOprine [Imuran*] 150 mg PO DAILY 10/14/21 inFLIXimab [Infliximab] 700 mg IV SEECOM 10/14/21 Codeine/APAP [Tylenol #3*] 1 tab PO Q6HP PRN #15 tab 10/18/21 Cyclosporine [Restasis] 1 drop EACH EYE BID 04/20/22 Rabeprazole Sodium 20 mg PO DAILY 04/20/22 Tamsulosin [Flomax] 0.4 mg PO DAILY 04/20/22 - Past Medical/Surgical History Diabetic: No -: Crohn's disease -: Kidney Stones -: Cdiff history -: anxiety -: RA -: DVT -: stroke - 2019 -: hysterectomy -: kidney stone removed -: cholecystectomy -: tubal ligation Psychosocial/ Personal History: Lives at home with family - Family History Mother Medical History: Hypertension Father Medical History: Hypertension - Social History Smoking Status: Unknown if ever smoked Alcohol use: No CD- Drugs: Yes Caffeine use: Yes Place of Residence: Home Review of Systems 10-point ROS is otherwise unremarkable Gastrointestinal: Nausea, Abdominal Pain (lower abdominal pain) Genitourinary: Other (hesitancy) Physical Examination Temp Pulse Resp BP Pulse Ox 99.1 F 102 H 20 133/61 100 10/11/22 03:00 10/11/22 06:00 10/11/22 09:06 10/11/22 06:00 10/11/22 09:06 General: Oriented x3, Mild distress HEENT: Atraumatic, Normocephalic Neck: Supple, JVD not distended Respiratory: Clear to auscultation bilaterally, Normal air movement (on room air) Cardiovascular: No edema, Normal pulses, Other (tachycardic) Gastrointestinal: Normal bowel sounds, Tenderness (lower abdomen) Musculoskeletal: Other (right lower leg splint) Integumentary: No rashes, No breakdown Neurological: Normal speech Laboratory Data (last 24 hrs) 10/10/22 10/10/22 10/10/22 21:15 13:23 13:16 WBC 7.90 Hgb 12.0 D Hct 35.2 L Plt Count 263 D PT 12.4 INR 1.13 APTT 42.4 H Sodium 132 L Potassium 3.4 L BUN 22 H Creatinine 1.23 H Glucose 137 H Total Bilirubin 0.3 AST 15 ALT 39 Alkaline Phosphatase 221 H 10/10/22 13:16 WBC 11.00 H Hgb 4.6 L* Hct 13.6 L Plt Count 361 PT INR APTT Sodium Potassium BUN Creatinine Glucose Total Bilirubin AST ALT Alkaline Phosphatase Imagings Data: - CT head, spine, chest, abdomen, pelvis: "IMPRESSION: Negative for acute traumatic findings. Two adjacent noncalcified nodules right upper lobe laterally. Recommend follow- up CT chest 3 months for monitoring." - XR right tibia fibula: "Oblique fracture is present involving the proximal fibula. No additional fracture is seen." Conclusions/Impression: Problem list Sepsis Urinary tract infection Acute blood loss anemia Crohn's disease COVID-19 Rheumatoid arthritis Fibular fracture History of DVT History of CVA Sepsis secondary to Urinary Tract Infection -Blood cultures 10/10 pending -Urine culture 10/10: Gram-negative rods - On Rocephin (10/11-) COVID-19 positive 10/10 - Patient reported symptoms of dizziness, nausea and generalized malaise that began 1 week ago. Denies any cough, shortness of breath or chest pain. - Continue with supportive care and hydration. 24 hour Tmax = 100.7 F Leukocytosis resolved Recommendations - UTI: Continue antibiotic therapy for 5-7 days. - Currently on Rocephin, continue Continue Rocephin for now. - Awaiting final urine culture and sensitivity results - WBC and fever trends Case discussed with Nova Avendano
[2022-10-11] MEDS ORDERED: NIRMATRELVIR/RITONAVIR TABLET PO SCH (10:30)
[2022-10-11 10:54] LABS: Hematocrit 34.6 % (36.0-45.0)
--- NOTE | 2022-10-11 13:06 | EKG ---
Test Date: 2022-10-10 Test Time: 13:26:10 Patient Services Manager: Norma CAM MEASUREMENT RESULTS: Intervals: Rate: 49 [place]: 144 QRSD: 92 QT: 490 QTc: 442 [place]: P: 32 OK: 144 QRS: -9 T: 18 INTERPRETIVE STATEMENTS: Sinus bradycardia Voltage criteria for left ventricular hypertrophy Abnormal ECG Compared to ECG 10/10/2022 13:24:15 Left ventricular hypertrophy now present Electronically Signed On 10-11-22 13:04:10 CDT by Judah Nick
--- NOTE | 2022-10-11 13:06 | EKG ---
Test Date: 2022-10-10 Test Time: 13:24:15 Journeyman Pipe Welder: Norma CAM MEASUREMENT RESULTS: Intervals: Rate: 0 [place]: QRSD: 0 QT: 0 QTc: 0 [place]: P: [place]: QRS: 0 T: 0 INTERPRETIVE STATEMENTS: No QRS complexes found, no ECG analysis possible Compared to ECG 10/14/2021 10:57:04 Sinus rhythm no longer present Left ventricular hypertrophy no longer present Electronically Signed On 10-11-22 13:04:14 CDT by Judah Nick
[2022-10-11] MEDS: TIZANIDINE 4 MG TABLET PO SCH ×2 (15:12→21:16)
[2022-10-11] MEDS: BUSPIRONE HCL 15 MG TABLET PO SCH ×2 (15:13→21:17)
[2022-10-11] MEDS: GABAPENTIN 300 MG CAP PO SCH ×2 (15:13→21:16)
[2022-10-11] MEDS: LORAZEPAM 0.5 MG TABLET PO SCH ×2 (15:13→21:14)
--- NOTE | 2022-10-11 15:44 | RAD REPORT ---
EXAM DESCRIPTION: RAD - Chest Single View - 10/11/2022 3:26 pm CLINICAL HISTORY: Device placement PICC line placement IMPRESSION: PICC line with its tip 1 centimeter into the right atrium
--- NOTE | 2022-10-11 17:01 | RAD REPORT ---
EXAM DESCRIPTION: RAD - Chest Single View - 10/11/2022 4:53 pm CLINICAL HISTORY: Device placement PICC line placement IMPRESSION: PICC line has been retracted with its tip near the SVC right atrium junction
[2022-10-11] MEDS: methocarbamoL 750 MG TAB PO SCH (21:16)
[2022-10-11] MEDS ORDERED: LOPERAMIDE HCL 2 MG CAPSULE PO STA (23:24)
[2022-10-12] MEDS: NA CHLORIDE 0.9% 1,000 ML IV SCH ×2 (01:44→15:18)
[2022-10-12] MEDS: MORPHINE 2 MG/ML SYR IV PRN ×3 (01:44→09:08)
[2022-10-12] MEDS: CODEINE 30MG/APAP 300MG TAB PO PRN ×3 (03:04→21:22)
[2022-10-12] MEDS: PROMETHAZINE INJ 25 MG/ML AMP IV PRN (03:04)
[2022-10-12 05:06] VITALS: BMI 28.7
[2022-10-12 05:43] LABS: Absolute Lymphocytes (CBC) 2.1 K/uL (0.7-4.9); Hematocrit 30.4 % (36.0-45.0); Lymphocytes % 31.3 % (15.3-44.8); MCV 95.4 fL (80-100); Platelets 287 thou/uL (152-406); RBC Red Blood Cell Count 3.19 M/uL (3.86-4.86)
[2022-10-12 06:03] LABS: Albumin 2.6 g/dL (3.4-5.0); Bilirubin Total 0.3 mg/dL (0.2-1.0); Protein, Total 6.6 g/dL (6.4-8.2)
--- NOTE | 2022-10-12 06:41 | P.PN ---
Date of Service: 10/12/22 Subjective: pulled out PICC yesterday Breathing okay on room air improving reports mostly dealing with pain at fracture site ~2 episodes of diarrhea in last 24 hours per report; none overnight receilved imodium x1 patient does not feel this is any way similar to prior 4 episodes of cdiff, no BM in >12hrs afebrile ROS: 10 point ROS as noted above, otherwise negative Physical Exam: GEN: Alert, oriented, NAD HEENT: Normal conjunctiva, sclera anicteric CV: Regular rate and rhythm, no edema Pulm: Nonlabored respirations on room air, clear bilaterally ABD: Soft, mild diffuse tenderness, nondistended MSK: Splint present right lower extremity; intact distal sensation Neuro: Normal speech, no focal defecit, +anxious vitals reviewed Problem List: Anemia, h/o GI Bleed history of Crohn's Sepsis secondary to UTI growing pansensitive E. Coli Covid-19 positive acute Right oblique fibular fracture s/p fall Incidental finding pulmonary nodules h/o DVT on Xarelto h/o CVA h/o Rheumatoid arthritis h/o c.diff colitis x4 in past Anemia, h/o GI Bleed history of Crohn's Denies melena, hematochezia, hematemesis. reports generalized abdominal pain, nonspecific CT negative for acute abdominal findings. s/p 1 uPRBC in ED, hgb up to 12 from 4 repeat hgb stable at 12, and patient denies bleeding suspect initial hgb not accurate; was not redrawn hgb currently 10.7 recheck in AM; no evidence of bleed xarelto held in ED / on admission restart tomorrow if hgb stable GI consulted Clear liquids, advance as tolerated no intervention warranted Sepsis secondary to UTI growing pansensitive E. Coli Urine cx: pansensitive E. coli Blood cx: pending ID consulted given h/o MDR enterococcus, h/o cdiff, COVID+ Continue Rocephin (10/10-) afebrile, +leukocytosis improving given h/o crohns, and recent diarrhea, continue IV rocephin x3 days; if improved, transition to PO patient was asymptomatic, but reports doesn't typically get urinary symptoms - only once it is "bad enough" she gets "kidney pains" Incidental finding pulmonary nodules CT (10/11): Two adjacent noncalcified nodules right upper lobe laterally f/u CT in 3 months as outpatient to evaluate for stability. History of DVT on Xarelto. Hold Xarelto given bleed Rheumatoid arthritis. Continue home medications as appropriate Right oblique fibular fracture. Splint in place. f/u outpatient VTE: SCD given suspected bleed, restart home xarelto tomorrow if stable Code: Full Dispo: Home , ~1 day Attempted call to patient's pain clinic to discuss pain control on discharge since she has pain contract and will need close follow up / short term adjustment message left by nursing staff
--- NOTE | 2022-10-12 07:39 | CON ---
Date of Consultation: 10/11/2022 Reason For Consultation: Anemia with history of Crohn disease in the setting of urinary tract infect ion and acute COVID infection. History Of Present Illness: The patient is a 47-year-old white female with history of Crohn, rheumat oid arthritis, stroke, DVTs bilaterally. The patient admitted to the hospital with anemia, UTI, and COVID. She was initially found to have a hemoglobin of 4.6, however, repeat check revealed hemoglobi n of 12 and multiple other checks revealed hemoglobin of somewhere between 12 and 12.2. So the patie nt is not anemic, it appears. The patient denies any melena, hematochezia. No blood seen at all by the patient. The patient also expresses some pain around the bellybutton associated with generalized abdominal pain, [id number]. She was diagnosed with UTI in the emergency room and is on antibi otics. She also was diagnosed with acute COVID-19. Multiple family members have COVID-19 as well. The patient had some hypotension in the ER, which resolved with IV fluids. It appears she was somewh at dehydrated. Past Medical History: Significant for Crohn disease, rheumatoid arthritis, stroke, bilateral DVTs, C diff, kidney stones, anxiety, bilateral pulmonary pneumonias, UTIs, total abdominal hysterectomy, la paroscopic cholecystectomy, and bilateral tubal ligation. Medications: See list. Allergies: TO OMNICEF, CIPRO. Home Medicines: She is taking in the past included gabapentin, Ativan, Pepcid, Zanaflex, methocarbam ol, Breo Ellipta , Xarelto, Zofran, Phenergan, ProAir, Imuran, Remicade, Tylenol, _, AcipHex, Flomax, prednisone. Social History: , 14-year-old daughter, 6-year-old son. No tobacco. No alcohol. Lives at [facility]. Family History: Father of COVID, also had history of hypertension. Mother alive with hypertens ion. family including and children at home have COVID as per the patient includin g her. Review of Systems: The patient has leg pain, abdominal pain, anemia. She denies any melena, hematochezia, hematemesis, coffee-grounds emesis, epistaxis, hematuria, dysuria, polyuria, polydipsia. No blood seen at all by the patient. She does have decreased mood and anxiety, but no chest pain, shortness of breath, seizu re, syncope. She does have muscle aches and joint aches. Physical Examination: Vital Signs: The patient is a 5 feet 4 inches, 160 pounds, BMI 27.5 kg/sq m. She has a pulse of 102 , respirations 18, blood pressure 133/61, O2 saturation 100%, temperature 99.1 degrees Fahrenheit. General: She is a mildly obese female, lying in bed, in no acute distress. HEENT: Normocephalic, atraumatic. Anicteric. Pupils equal, round, and reactive to light. Extraocu lar movements are intact. Oropharynx is clear. Neck: Supple. No masses. Respirations: Clear to auscultation bilaterally. Cardiac: Regular rate and rhythm. No gallops or rubs. Abdomen: Positive bowel sounds. Soft, nondistended. Pain around the umbilical area, but extending generally. Mild tenderness. No peritoneal or Mckenzie signs. No rebound. Extremities: No clubbing, cyanosis. Mild lower extremity edema. Neuro: Alert and oriented x3. Able to move all extremities well. Sensation intact to light touch. Laboratory Data: Today, the patient has a white count of 6.5, hemoglobin of 12.2 and this is without any transfusion, hematocrit of 35, MCV of 95, platelet count of 258, polys of 64%, lymphocytes 22%, monocytes 14%, eosinophils 1%. PT is 12.4, INR of 1.13, PTT of 42.4. Sodium 137, potassium 3.5, chl oride 109, bicarb 16, BUN of 12, creatinine of 0.9, glucose 124, lactate of 1.4, calcium 9.7, total b ilirubin 0.4, AST of 51, ALT 60, alkaline phosphatase 351, total protein of 7.9, albumin 3.2. UA; sp ecific gravity greater than 1.030, extremity turbid, 2+ blood, 2+ nitrite, 500 leukocyte esterase, 21 -50 RBCs, greater than 50 white blood cells, less than 5 squamous epithelial cells, bacteria 20-50, 1 + protein. Serology; COVID-19 positive diverticulosis in the sigmoid colon without divert iculitis, pelvis negative, so no acute findings noted. There are 2 adjacent noncalcified nodules in the right upper lobe of the lungs. Recommend repeat CT in 3 months with chest. Impression: 1.Anemia. Hemoglobin initially 4.6 multiple read, repeat hemoglobin of 12 to 12.2, so there is no a nemia. She denies any blood, any melena, hematochezia, hematemesis, or coffee-grounds emesis, hematu madelyn, epistaxis, and no blood seen at all. 2.Periumbilical and generalized pain, may be related to COVID with GI manifestation or other includi ng Crohn disease or other. We will monitor and continue p.r.n. pain medicines and COVID-19 treatment . 3.Urinary tract infection. Continue IV antibiotics and IV fluids. 4.COVID-19 acute infection. COVID-19 therapy such as . 5.History of Crohn disease, rheumatoid arthritis, stroke, bilateral deep vein thromboses in the past , C diff, kidney stones, anxiety, bilateral pneumonias, urinary tract infections, total abdominal hys terectomy, laparoscopic cholecystectomy, and bilateral tubal ligations. Recommendations: 1.IV fluids and IV antibiotics. 2.Clear liquids to full liquids to low residue diet. 3.Await urine and blood cultures. 4.Continue p.r.n. pain medicines and antiemetics. 5. therapy. HELEN/AYLIN Voice ID: [id number] Report ID: [id number]
[2022-10-12] MEDS: CEFTRIAXONE 1,000 MG in NA CHLORIDE 0.9% 50 ML IVPB SCH (08:17)
[2022-10-12] MEDS: BUSPIRONE HCL 15 MG TABLET PO SCH ×3 (08:17→21:21)
[2022-10-12] MEDS: TIZANIDINE 4 MG TABLET PO SCH ×3 (08:18→21:21)
[2022-10-12] MEDS: GABAPENTIN 300 MG CAP PO SCH ×3 (08:18→21:22)
[2022-10-12] MEDS: Mupirocin NASAL 2 APPL/1 GM TUBE NAS SCH ×2 (08:19→21:23)
[2022-10-12] MEDS: TAMSULOSIN 0.4 MG SR CAP PO SCH (08:19)
[2022-10-12] MEDS: LORAZEPAM 0.5 MG TABLET PO SCH ×3 (08:19→21:22)
[2022-10-12] MEDS: PANTOPRAZOLE 40 MG INJ IVP SCH ×2 (08:20→21:23)
--- NOTE | 2022-10-12 08:22 | P.PN ---
Date of Service: 10/12/22 Chief Complaint: Anemia, UTI, COVID Subjective: Patient reports continued lower abdominal pain. Denies any dysuria, urinary hesitancy, frequency or retention. No chest pain, shortness of breath or palpitations. No acute events reported overnight. Physical Examination Temp Pulse Resp BP Pulse Ox 97.1 F 59 14 142/79 H 97 10/12/22 04:00 10/12/22 06:00 10/12/22 06:00 10/12/22 06:00 10/12/22 05:00 General: Alert, Oriented x3. In no apparent distress. HEENT: Atraumatic, Normocephalic Neck: Supple, JVD not distended Respiratory: Clear to auscultation bilaterally, Normal air movement Cardiovascular: No edema, Normal pulses. Gastrointestinal: Normal bowel sounds. Lower abdominal tenderness Musculoskeletal: Right lower leg splint Integumentary: No rashes, No breakdown Neurological: Normal speech Laboratory Data - Reviewed Microbiology Data: - Reviewed Imagings Data: - CT head, spine, chest, abdomen, pelvis: "IMPRESSION: Negative for acute traumatic findings. Two adjacent noncalcified nodules right upper lobe laterally. Recommend follow- up CT chest 3 months for monitoring." - XR right tibia fibula: "Oblique fracture is present involving the proximal fibula. No additional fracture is seen." Medication List: Reviewed Assessment and Plan Problem list Sepsis Urinary tract infection Acute blood loss anemia Crohn's disease COVID-19 Rheumatoid arthritis Fibular fracture History of DVT History of CVA Mild PCM Sepsis secondary to Urinary Tract Infection -Blood cultures 10/10 No growth 24 hours -Urine culture 10/10: Escherichia coli - On Rocephin (10/11-) COVID-19 positive 10/10 - Patient reported symptoms of dizziness, nausea and generalized malaise that began 1 week ago. Denies any cough, shortness of breath or chest pain. - Continue with supportive care and hydration. afebrile 24 hours Leukocytosis resolved Recommendations - UTI: Continue antibiotic therapy for 5-7 days. - Currently on Rocephin, continue while inpatient - Upon discharge, consider switch to Augmentin PO - Supplemental nutrition as tolerated - Patient has GI appointment scheduled for next week Case discussed with Nova Avendano
[2022-10-12] MEDS ORDERED: HOME MED 1 EA UNK (Fluticasone/Vilanterol [Breo Ellipta 200-25 Mcg Inh] Blst.W.Dev) IH SCH (09:00)
[2022-10-12] MEDS ORDERED: POTASSIUM CL SA 10 MEQ TAB PO ONE (09:00)
[2022-10-12] MEDS ORDERED: RIVAROXABAN 20 MG TABLET PO SCH (09:00)
[2022-10-12] MEDS: AZATHIOPRINE 50 MG TABLET PO SCH (09:08)
[2022-10-12] MEDS: PROMETHAZINE 25 MG TABLET PO PRN (12:59)
[2022-10-12] MEDS: methocarbamoL 750 MG TAB PO SCH (21:22)
[2022-10-12 22:11] VITALS: O2SAT 98
[2022-10-13] MEDS: NA CHLORIDE 0.9% 1,000 ML IV SCH (00:12)
[2022-10-13] MEDS: PROMETHAZINE 25 MG TABLET PO PRN ×2 (03:38→08:51)
[2022-10-13] MEDS: CODEINE 30MG/APAP 300MG TAB PO PRN (03:38)
[2022-10-13 04:44] LABS: Albumin 2.7 g/dL (3.4-5.0); Bilirubin Total 0.4 mg/dL (0.2-1.0); Magnesium 1.8 mg/dL (1.6-2.4); Potassium 3.4 mEq/L (3.5-5.1); Protein, Total 6.6 g/dL (6.4-8.2)
[2022-10-13 04:48] LABS: Absolute Lymphocytes (CBC) 2.2 K/uL (0.7-4.9); Hematocrit 30.3 % (36.0-45.0); Lymphocytes % 36.2 % (15.3-44.8); MCV 96.2 fL (80-100); MPV 7.9 fL (7.6-11.3); Platelets 292 thou/uL (152-406); RBC Red Blood Cell Count 3.15 M/uL (3.86-4.86)
[2022-10-13] MEDS: Mupirocin NASAL 2 APPL/1 GM TUBE NAS SCH (08:00)
[2022-10-13] MEDS: TAMSULOSIN 0.4 MG SR CAP PO SCH (08:00)
[2022-10-13] MEDS: PANTOPRAZOLE 40 MG INJ IVP SCH (08:01)
[2022-10-13] MEDS: CEFTRIAXONE 1,000 MG in NA CHLORIDE 0.9% 50 ML IVPB SCH (08:01)
[2022-10-13] MEDS: GABAPENTIN 300 MG CAP PO SCH (08:02)
[2022-10-13] MEDS: LORAZEPAM 0.5 MG TABLET PO SCH (08:51)
[2022-10-13] MEDS: TIZANIDINE 4 MG TABLET PO SCH (08:51)
[2022-10-13] MEDS: AZATHIOPRINE 50 MG TABLET PO SCH (08:52)
[2022-10-13] MEDS: BUSPIRONE HCL 15 MG TABLET PO SCH (08:53)
[2022-10-13] MEDS ORDERED: MAGNESIUM SULFATE 1 gm IVPB 1 GM/100 ML BAG IV ONE (09:00)
[2022-10-13] MEDS ORDERED: POTASSIUM CL SA 10 MEQ TAB PO ONE (09:00)
[2022-10-13] MEDS ORDERED: RIVAROXABAN 20 MG TABLET PO SCH (09:00)
--- NOTE | 2022-10-13 09:01 | P.DS ---
Admission Date: 10/10/22 Discharge Date: 10/13/22 Disposition: ROUTINE DISCHARGE Reason for Admission: Anemia, UTI, COVID Brief History of Present Illness: 47yo F, PMH: DVT on chronic anticoagulation, Crohn's, previous CVA, rheumatoid arthritis Patient presents emergency department with chief complaint of dizziness with standing, nausea and fall on Sunday with right leg pain. She reports that on Sunday she was feeling dizzy/lightheaded and tripped injuring her right lower extremity, also reports dizziness when standing. She denies any melena, hematochezia, hematemesis. Last EGD/colonoscopy was approximate 1 year ago normal per patient. She sees a local GI doctor Dr. Khalil. She was evaluated in the emergency department her labs are significant for hemoglobin of 4.6 medic at 13.6 white blood cell count 11.0 platelets 361 BUN 22 creatinine 1.23 GFR 55 UA with leuk esterase, red blood cell, white blood cell, bacteria, nitrite positive. Initially patient was hypotensive, this improved after 1 L bolus IV fluid. Initially 2 unit PRBC ordered in ED, repeat obtained immediately after first unit came back with hemoglobin of 12.0 hematocrit 35.2, initial specimen was rerun revealing hemoglobin 4.6, will have nursing staff perform straight stick to confirm recent hemoglobin of 12.0. She had imaging in the ER including chest x-ray was negative for acute findings DVT study lower extremities which was negative for acute DVT but did show small amount of chronic linear thrombus seen in left popliteal vein. X-ray of the right tip/fib which revealed oblique fibular fracture, patient was placed in splint, CT head/C-spine/chest/abdomen/pelvis was performed which was negative for acute traumatic findings, does mention 2 adjacent noncalcified nodules right upper lobe laterally recommend follow-up CT chest in 3 months. ED provider wishes to admit for anemia, UTI, hypotension, tachycardia. Lactic acid was 1.4, blood cultures were obtained in the emergency department. Patient was given IV Zosyn Hospital Course: Problem List: Anemia, h/o GI Bleed history of Crohn's Sepsis secondary to UTI growing pansensitive E. Coli Covid-19 positive acute Right oblique fibular fracture s/p fall Incidental finding pulmonary nodules h/o DVT on Xarelto h/o CVA h/o Rheumatoid arthritis h/o c.diff colitis x4 in past Patient presented with dizziness, nausea, right leg pain after a fall. She was found to have an oblique fracture involving the proximal fibula seen on xray. A splint was placed in the ED and she was given pain medication with relief. Recommend follow up with Dr. dwight hunter in 1 week for further management. In the ED, patients hgb was found to be 4. She was given 1 uPRBC and repeat hgb went up to 12. Patient denies melena, hematochezia, hematemesis. CT negative for acute abdominal findings. Suspect initial hgb was not accurate. GI was consulted and felt there was no intervention warranted given likely error. Patients hgb remained stable throughout the rest of her hospitalization. No further transfusions needed. hgb on discharge: 10.7 Patient was noted to have a UTI growing pansenstive E. coli, complicated by Covid 19 during her hospitalization. ID was consulted. Patient was treated with IV rocephin and had improvement of her symptoms. She is to complete 4 days of PO augmentin on discharge. Patient was feeling better, remained afebrile for > 24 hours, leukocytosis resolved, was deemed stable for discharge home. During her hospitalization, patient restarted on her home pain / neuropathy /psych / nausea medications as prescribed. After morphine, noted to get bradycardic to 40s, asymptomatic, briefly to 30s when asleep, Up to 60s when awake and active. Heart rate improved after discontinuation of morphine and back to her baseline on day of discharge. Medications: New: PO augmentin x4 days Halbur - okay to increase norco frequency to every [address] Burt Escobar at pain clinic and to follow up with him on Sunday. Follow up: PCP 3-[address] Dwight Hunter in 1-[address] Burt Escobar at pain clinic on Sunday. Incidentally found on CT: Two adjacent noncalcified nodules right upper lobe laterally Recommend to follow up with PCP as outpatient for repeat CT in ~3 months to evaluate for stability. Physical Exam: GEN: Alert, oriented, NAD HEENT: Normal conjunctiva, sclera anicteric CV: Regular rate and rhythm, no edema Pulm: Nonlabored respirations on room air, clear bilaterally ABD: Soft, mild diffuse tenderness, nondistended MSK: Splint present right lower extremity; intact distal sensation Neuro: Normal speech, no focal defecit Vital Signs/Physical Exam: Temp Pulse Resp BP Pulse Ox 97.6 F 95 H 16 174/96 H 99 10/13/22 03:39 10/13/22 03:39 10/13/22 03:39 10/13/22 03:39 10/13/22 03:39 Laboratory Data at Discharge: WBC 6.00 thou/uL (4.3-10.9) 10/13/22 03:50 Hgb 10.7 g/dL (12.0-15.0) L 10/13/22 03:50 Hct 30.3 % (36.0-45.0) L 10/13/22 03:50 Plt Count 292 thou/uL (152-406) 10/13/22 03:50 PT 12.4 SECONDS (9.5-12.5) 10/10/22 13:23 INR 1.13 10/10/22 13:23 APTT 42.4 SECONDS (24.3-36.9) H 10/10/22 13:23 Sodium 142 mEq/L (136-145) 10/13/22 03:50 Potassium 3.4 mEq/L (3.5-5.1) L 10/13/22 03:50 BUN 9 mg/dL (7-18) 10/13/22 03:50 Creatinine 0.68 mg/dL (0.55-1.02) 10/13/22 03:50 Glucose 88 mg/dL (74-106) 10/13/22 03:50 Magnesium 1.8 mg/dL (1.6-2.4) 10/13/22 03:50 Total Bilirubin 0.4 mg/dL (0.2-1.0) 10/13/22 03:50 AST 14 U/L (15-37) L 10/13/22 03:50 ALT 29 U/L (13-56) 10/13/22 03:50 Alkaline Phosphatase 225 U/L (45-117) H 10/13/22 03:50 Home Medications: Dicyclomine HCl 20 mg PO TID 07/08/20 Gabapentin 600 mg PO TID 07/08/20 LORazepam [Ativan*] 1 mg PO TID 07/08/20 Famotidine [Pepcid] 1 tab PO BEDTIME 07/09/20 Tizanidine HCl [Zanaflex] 4 mg PO TID 12/30/20 methocarbamoL [Methocarbamol] 750 mg PO BEDTIME 12/30/20 Fluticasone/Vilanterol [Breo Ellipta 200-25 Mcg INH] 1 puff IH DAILY 04/26/21 Hydrocodone/Acetaminophen [Hydrocodone-Acetamin 10-325 mg] 1 tab PO TID 04/26/21 Rivaroxaban [Xarelto] 20 mg PO DAILY 04/26/21 Ondansetron [Zofran (Odt)*] 8 mg PO Q6H PRN #30 tab 05/04/21 Promethazine Tab [Phenergan*] 25 mg PO Q6HP PRN #30 tab 05/04/21 Albuterol Sulfate [Proair Digihaler] 90 mcg IH QIDP PRN 10/14/21 azaTHIOprine [Imuran*] 150 mg PO DAILY 10/14/21 inFLIXimab [Infliximab] 700 mg IV SEECOM 10/14/21 Codeine/APAP [Tylenol #3*] 1 tab PO Q6HP PRN #15 tab 10/18/21 Cyclosporine [Restasis] 1 drop EACH EYE BID 04/20/22 Rabeprazole Sodium 20 mg PO DAILY 04/20/22 Tamsulosin [Flomax*] 0.4 mg PO DAILY 04/20/22 Amox/Clavulanate [Augmentin 875-125 Tab] 1 each PO BID 4 Days #8 tab 10/13/22 Hydrocodone Bit/Acetaminophen [Halbur 10-325 Tablet] 1 tab PO Q6H PRN #20 tab 10/13/22 New Medications: Amox/Clavulanate [Augmentin 875-125 Tab] 1 each PO BID 4 Days #8 tab Hydrocodone Bit/Acetaminophen [Halbur 10-325 Tablet] 1 tab PO Q6H PRN #20 tab PRN Reason: Pain Scale 8-10 (Severe) Physician Discharge Instructions: Patient presented with dizziness, nausea, right leg pain after a fall. She was found to have an oblique fracture involving the proximal fibula seen on xray. A splint was placed in the ED and she was given pain medication with relief. Recommend follow up with Dr. dwight hunter in 1 week for further management. In the ED, patients hgb was found to be 4. She was given 2 uPRBC and repeat hgb went up to 12. Patient denies melena, hematochezia, hematemesis. CT negative for acute abdominal findings. Suspect initial hgb was not accurate. GI was consulted and felt there was no intervention warranted given likely error. Patients hgb remained stable throughout the rest of her hospitalization. No further transfusions needed. hgb on discharge: 10.7 Patient was noted to have a UTI growing pansenstive E. coli, complicated by Covid 19 during her hospitalization. ID was consulted. Patient was treated with IV rocephin and had improvement of her symptoms. She is to complete 4 days of PO augmentin on discharge. Patient was feeling better, remained afebrile for > 24 hours, leukocytosis resolved, was deemed stable for discharge home. During her hospitalization, patient restarted on her home pain / neuropathy /psych / nausea medications as prescribed. After morphine, noted to get bradycardic to 40s, asymptomatic, briefly to 30s when asleep, Up to 60s when awake and active. Heart rate improved after discontinuation of morphine and back to her baseline on day of discharge. Medications: New: PO augmentin x4 days Halbur - okay to increase norco frequency to every [address] Burt Escobar at pain clinic and to follow up with him on Sunday. Follow up: PCP 3-[address] Dwight Hunter in 1-[address] Burt Escobar at pain clinic on Sunday. Incidentally found on CT: Two adjacent noncalcified nodules right upper lobe laterally Recommend to follow up with PCP as outpatient for repeat CT in ~3 months to evaluate for stability. Followup: Roman Fallon MD [Primary Care Provider] - Time spent managing pt's care (in minutes): 45
[2022-10-13] MEDS ORDERED: HYDROCODONE/APAP 10/325 TAB PO ONE (09:06)
[2022-10-13 09:13] VITALS: BP 151/76; TEMP 98.8
--- NOTE | 2022-10-13 15:23 | EKG ---
Test Date: 2022-10-12 Test Time: 13:50:57 [employer] Laborer: MIGNON MEASUREMENT RESULTS: Intervals: Rate: 41 MO: 146 QRSD: 86 QT: 514 QTc: 424 [place]: P: 42 MO: 146 QRS: 6 T: 10 INTERPRETIVE STATEMENTS: Marked sinus bradycardia Minimal voltage criteria for LVH, may be normal variant Abnormal ECG Compared to ECG 10/10/2022 13:26:10 No significant changes Electronically Signed On 10-13-22 15:21:22 CDT by Judah Nick
== END 2022-10-13 10:21 | disposition home or self-care (01) | DRG 871 ==
LOC: ER 12:28 → ERHOLD 21:32 → 3RD-ICU 22:16 → 4TH 10-12 22:16
PROVIDERS: ADMIT Hospitalist; ATTEND Hospitalist
PROC: 30233N1 Transfusion of Nonautologous Red Blood Cells into Peripheral Vein, Percutaneous Approach (ICD-10-PCS; principal; 2022-10-10)
PROC: 02HV33Z Insertion of Infusion Device into Superior Vena Cava, Percutaneous Approach (ICD-10-PCS; 2022-10-11)
PROC: 02H633Z Insertion of Infusion Device into Right Atrium, Percutaneous Approach (ICD-10-PCS; 2022-10-11)
DX: A41.51 Sepsis due to Escherichia coli [E. coli] (principal); U07.1 COVID-19; D62 Acute posthemorrhagic anemia; I82.532 Chronic embolism and thrombosis of left popliteal vein; N39.0 Urinary tract infection, site not specified; K50.90 Crohn's disease, unspecified, without complications; M06.9 Rheumatoid arthritis, unspecified; D64.9 Anemia, unspecified; I95.9 Hypotension, unspecified; E44.1 Mild protein-calorie malnutrition; S82.431A Displaced oblique fracture of shaft of right fibula, initial encounter for closed fracture; R91.8 Other nonspecific abnormal finding of lung field; Z88.1 Allergy status to other antibiotic agents; Z88.8 Allergy status to other drugs, medicaments and biological substances; Z68.25 Body mass index [BMI] 25.0-25.9, adult; Z98.51 Tubal ligation status; Z79.52 Long term (current) use of systemic steroids; Z90.49 Acquired absence of other specified parts of digestive tract; Z86.73 Personal history of transient ischemic attack (TIA), and cerebral infarction without residual deficits; Z79.01 Long term (current) use of anticoagulants; Z79.899 Other long term (current) drug therapy; Z90.710 Acquired absence of both cervix and uterus; W19.XXXA Unspecified fall, initial encounter; Y93.9 Activity, unspecified; Y92.9 Unspecified place or not applicable; Y99.9 Unspecified external cause status
CPT/HCPCS: 36415; 36569; 70450; 71045; 71260; 72125; 74177; 80053; 81001; 83605; 83735; 84132; 85014; 85018; 85025; 85610; 85730; 86850; 86900; 86901; 86920; 87040; 87070; 87077; 87081; 87086; 87088; 87186; 87635; 87804; 93005; 93970; 96361; 96365; 96366; 96375; 99285; C9113; J0696; J2270; J2405; J2543; J2550; J3010; J3475; J7030; J7050; J7500; P9016; Q0169; Q9967

== ENCOUNTER 2022-10-27 08:44 | Day surgery (SDC) | payer BC ==
[2022-10-27] MEDS ORDERED: LIDOCAINE 1% MPF 30 ML VIAL ONE (09:21)
[2022-10-27] MEDS ORDERED: INFLIXIMAB-ABDA 700 MG in NA CHLORIDE 0.9% 250 ML IV ONE (09:30)
[2022-10-27] MEDS ORDERED: PROMETHAZINE INJ 25 MG/ML AMP ONE (09:34)
[2022-10-27] MEDS ORDERED: ACETAMINOPHEN 325 MG TABLET ONE (09:34)
[2022-10-27] MEDS ORDERED: DIPHENHYDRAMINE 25 MG TAB/CAP ONE (09:34)
[2022-10-27 09:51] VITALS: O2SAT 100; BMI 25.7
[2022-10-27 13:10] VITALS: TEMP 97.6
[2022-10-27 13:11] VITALS: BP 145/92
== END 2022-10-27 12:47 | disposition home or self-care (01) ==
LOC: DS 08:44
PROVIDERS: ATTEND Internal Medicine Gastroenterology
DX: K50.90 Crohn's disease, unspecified, without complications (principal)
CPT/HCPCS: 96365; 96366; J2550; Q5104; J2001; J7050

== ENCOUNTER 2022-11-30 08:53 | Day surgery (SDC) | payer BC ==
[2022-11-30] MEDS ORDERED: INFLIXIMAB-ABDA 700 MG in NA CHLORIDE 0.9% 250 ML IV ONE (09:30)
[2022-11-30] MEDS ORDERED: LIDOCAINE 1% MPF 30 ML VIAL ONE (09:30)
[2022-11-30] MEDS ORDERED: NA CHLORIDE 0.9% 250 ML ONE (09:43)
[2022-11-30] MEDS ORDERED: DIPHENHYDRAMINE 25 MG TAB/CAP ONE (09:52)
[2022-11-30] MEDS ORDERED: PROMETHAZINE INJ 25 MG/ML AMP ONE (09:52)
[2022-11-30] MEDS ORDERED: ACETAMINOPHEN 325 MG TABLET ONE (09:52)
[2022-11-30 10:21] VITALS: BMI 26.4
[2022-11-30 13:00] VITALS: BP 94/53; TEMP 97.9; O2SAT 100
== END 2022-11-30 12:20 | disposition home or self-care (01) ==
LOC: DS 08:53
PROVIDERS: ATTEND Internal Medicine Gastroenterology
DX: K50.90 Crohn's disease, unspecified, without complications (principal)
CPT/HCPCS: 96365; 96366; J2001; J2550; J7050; Q5104

== ENCOUNTER 2022-12-12 09:58 | Emergency (ER) | payer BC ==
--- OUTSIDE RECORDS SUMMARY | 2022-12-12 10:19 | XMS REPORT | Continuity of Care Document ---
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 [place] 2.5-0.025 04 needed. Medical mg tablet Branch predniSONE 2020-02 Yes 20mg Take 20 mg U nivers 10 mg 1-02 by mouth ity of tablet 03:45: daily. [place] Medical Branch Hydrocodone 2020-02 Yes 1{tbl} Take 1 Un matt -Acetaminop 1-02 tablet by ity of hen 7.5-300 03:45: mouth 3 [place] mg tablet 04 (three) Medical times [place] daily. tiZANidine 2020-02 Yes 4mg Take 4 mg Un matt 4 mg tablet 1-02 by mouth 3 it y of 03:45: (three) [place] 04 times Medical daily. Branch methocarbam 2020-02 Yes 500mg Take 500 U nivers oL 500 mg 1-02 mg by ity of tablet 03:45: mouth at [place] [address] bedtime. Medical Branch dicyclomine 2020-02 Yes 20mg Take 20 mg [facility] 20 mg 1-02 by mouth 3 ity of tablet 03:45: (three) [place] 04 times Medical daily. Branch famotidine 2020-02 Yes 40mg Take 40 mg U nivers 40 mg 1-02 by mouth ity of tablet 03:45: at [place] [address] bedtime. Medical Branch diphenoxyla 2020-02 Yes 1{tbl} Take 1 Un matt te-atropine 1-02 tablet by ity of (LOMOTIL) 03:45: mouth [place] 2.5-0.025 04 needed. Medical mg tablet Branch predniSONE 2020-02 Yes 20mg Take 20 mg U nivers 10 mg 1-02 by mouth ity of tablet 03:45: daily. [place] [facility] Hydrocodone 2020-02 Yes 1{tbl} Take 1 Un matt -Acetaminop 1-02 tablet by ity of hen 7.5-300 03:45: mouth 3 [place] as mg tablet 04 (three) Medical times [place] daily. tiZANidine 2020-02 Yes 4mg Take 4 [...] mouth 3 ity of tablet 03:45: (three) [place] [address] times Medical daily. Branch famotidine 2020-02 Yes 40mg Take 40 mg U nivers 40 mg 1-02 by mouth ity of tablet 03:45: at [place] [address] bedtime. Medical Branch diphenoxyla 2020-02 Yes 1{tbl} Take 1 Un matt te-atropine 1-02 tablet by ity of (LOMOTIL) 03:45: mouth [place] 2.5-0.025 04 needed. Medical mg tablet Branch predniSONE 2020-02 Yes 20mg Take 20 mg U nivers 10 mg -02 by mouth ity of tablet 03:45: daily. [place] [address] Medical Branch Hydrocodone 2020-02 Yes 1{tbl} Take 1 Un matt -Acetaminop 1-02 tablet by ity of hen 7.5-300 03:45: mouth 3 [place] as mg tablet 04 (three) Medical times Branch daily. tiZANidine 2020-02 Yes 4mg Take 4 mg Un matt 4 mg tablet -02 by mouth 3 it y of 03:45: (three) [place] [address] times Medical daily. Branch methocarbam 2020-02 Yes 500mg Take 500 U nivers oL 500 mg 1-02 mg by ity of tablet 03:45: mouth at [place] [address] bedtime. Medical Branch dicyclomine 2020-02 Yes 20mg Take 20 mg Univers 20 mg -02 by mouth 3 ity of tablet 03:45: (three) [place] [address] times Medical daily. Branch famotidine 2020-02 Yes 40mg Take 40 mg U nivers 40 mg 1-02 by mouth ity of tablet 03:45: at [place] [address] bedtime. Medical Branch diphenoxyla 2020-02 Yes 1{tbl} Take 1 Un matt te-atropine 1-02 tablet by ity of (LOMOTIL) 03:45: mouth [place] 2.5-0.025 04 needed. Medical mg tablet Branch predniSONE 2020-02 Yes 20mg Take 20 mg U nivers 10 mg 1-02 by mouth ity of tablet 03:45: daily. [place] [address] Medical Branch Hydrocodone 2020-02 Yes 1{tbl} Take 1 Un matt -Acetaminop 1-02 tablet by ity of hen 7.5-300 03:45: mouth 3 [place] as mg tablet 04 (three) Medical times [place] daily. tiZANidine 2020-02 Yes 4mg Take 4 mg Un matt 4 mg tablet 1-02 by mouth 3 it y of 03:45: (three) [place] 04 times Medical daily. Branch methocarbam 2020-02 Yes 500mg Take 500 U nivers oL 500 mg 1-02 mg by ity of tablet 03:45: mouth at [place] 04 bedtime. Medical Branch dicyclomine 2020-02 Yes 20mg Take 20 mg Univers 20 mg 1-02 by mouth 3 ity of tablet 03:45: (three) [place] 04 times Medical daily. Branch famotidine 2020-02 Yes 40mg Take 40 mg U nivers 40 mg 1-02 by mouth ity of tablet 03:45: at [place] [address] bedtime. Medical Branch diphenoxyla 2020-02 Yes 1{tbl} Take 1 Un matt te-atropine 1-02 tablet by ity of (LOMOTIL) 03:45: mouth [place] 2.5-0.025 04 needed. Medical mg tablet Branch predniSONE 2020-02 Yes 20mg Take 20 mg U nivers 10 mg 1-02 by mouth ity of tablet 03:45: daily. [place] [address] Medical Branch Hydrocodone 2020-02 Yes 1{tbl} Take 1 Un matt -Acetaminop 1-02 tablet by ity of hen 7.5-300 03:45: mouth 3 [place] as mg tablet 04 (three) Medical times [place] daily. tiZANidine 2020-02 Yes 4mg Take 4 mg Un matt 4 mg tablet 1-02 by mouth 3 it y of 03:45: (three) [place] 04 times Medical daily. Branch methocarbam 2020-02 Yes 500mg Take 500 U nivers oL 500 mg 1-02 mg by ity of tablet 03:45: mouth at [place] 04 bedtime. Medical Branch dicyclomine 2020-02 Yes 20mg Take 20 mg Univers 20 mg 1-02 by mouth 3 ity of tablet 03:45: (three) [place] 04 times Medical daily. Branch famotidine 2020-02 Yes 40mg Take 40 mg U nivers 40 mg 1-02 by mouth ity of tablet 03:45: at [place] [address] bedtime. Medical Branch diphenoxyla 2020-02 Yes 1{tbl} Take 1 Un matt te-atropine 1-02 tablet by ity of (LOMOTIL) 03:45: mouth [place] 2.5-0.025 04 needed. Medical mg tablet Branch predniSONE 2020-02 Yes 20mg Take 20 mg U nivers 10 mg 1-02 by mouth ity of tablet 03:45: daily. [place] [address] Medical Branch Hydrocodone 2020-02 Yes 1{tbl} Take 1 Un matt -Acetaminop 1-02 tablet by ity of hen 7.5-300 03:45: mouth 3 [place] as mg tablet 04 (three) Medical times [place] daily. tiZANidine 2020-02 Yes 4mg Take 4 mg Un matt 4 mg tablet -02 by mouth 3 it y of 03:45: (three) [place] 04 times Medical daily. Branch methocarbam 2020-02 Yes 500mg Take 500 U nivers oL 500 mg 1-02 mg by ity of tablet 03:45: mouth at [place] [address] bedtime. Medical Branch dicyclomine 2020-02 Yes 20mg Take 20 mg Univers 20 mg -02 by mouth 3 ity of tablet 03:45: (three) [place] 04 times Medical daily. Branch famotidine 2020-02 Yes 40mg Take 40 mg U nivers 40 mg -02 by mouth ity of tablet 03:45: at [place] [address] bedtime. Medical Branch diphenoxyla 2020-02 Yes 1{tbl} Take 1 Un matt te-atropine 1-02 tablet by ity of (LOMOTIL) 03:45: mouth [place] 2.5-0.025 04 needed. Medical mg tablet Branch predniSONE 2020-02 Yes 20mg Take 20 mg U nivers 10 mg 1-02 by mouth ity of tablet 03:45: daily. [place] [address] Medical Branch Hydrocodone 2020-02 Yes 1{tbl} Take 1 Un matt -Acetaminop 1-02 tablet by ity of hen 7.5-300 03:45: mouth 3 [place] as mg tablet 04 (three) Medical times [place] daily. tiZANidine 2020-02 Yes 4mg Take 4 mg Un matt 4 mg tablet 1-02 by mouth 3 it y of 03:45: (three) [place] 04 times Medical daily. Branch methocarbam 2020-02 Yes 500mg Take 500 U nivers oL 500 mg 1-02 mg by ity of tablet 03:45: mouth at [place] 04 bedtime. Medical Branch dicyclomine 2020-02 Yes 20mg Take 20 mg Univers 20 mg 1-02 by mouth 3 ity of tablet 03:45: (three) [place] 04 times Medical daily. Branch famotidine 2020-02 Yes 40mg Take 40 mg U nivers 40 mg 1-02 by mouth ity of tablet 03:45: at [place] [address] bedtime. Medical Branch diphenoxyla 2020-02 Yes 1{tbl} Take 1 Un matt te-atropine 1-02 tablet by ity of (LOMOTIL) 03:45: mouth [place] 2.5-0.025 04 needed. Medical mg tablet Branch predniSONE 2020-02 Yes 20mg Take 20 mg U nivers 10 mg 1-02 by mouth ity of tablet 03:45: daily. [place] [address] Medical Branch Hydrocodone 2020-02 Yes 1{tbl} Take 1 Un matt -Acetaminop 1-02 tablet by ity of hen 7.5-300 03:45: mouth 3 [place] as mg tablet 04 (three) Medical times [place] daily. tiZANidine 2020-02 Yes 4mg Take 4 mg Un matt 4 mg tablet -02 by mouth 3 it y of 03:45: (three) [place] 04 times Medical daily. Branch methocarbam 2020-02 Yes 500mg Take 500 U nivers oL 500 mg 1-02 mg by ity of tablet 03:45: mouth at [place] [address] bedtime. Medical Branch dicyclomine 2020-02 Yes 20mg Take 20 mg Univers 20 mg 1-02 by mouth 3 ity of tablet 03:45: (three) [place] 04 times Medical daily. Branch famotidine 2020-02 Yes 40mg Take 40 mg U nivers 40 mg 1-02 by mouth ity of tablet 03:45: at [place] [address] bedtime. Medical Branch diphenoxyla 2020-02 Yes 1{tbl} Take 1 Un matt te-atropine 1-02 tablet by ity of (LOMOTIL) 03:45: mouth as [place] 2.5-0.025 04 needed. Medical mg tablet Branch predniSONE 2020-02 Yes 20mg Take 20 mg U nivers 10 mg -02 by mouth ity of tablet 03:45: daily. [place] 04 Medical Branch Hydrocodone 2020-02 Yes 1{tbl} [...] by ity of tablet 03:45: mouth at [place] [address] bedtime. Medical Branch dicyclomine 2020-02 Yes 20mg Take 20 mg Univers 20 mg 02 by mouth 3 ity of tablet 03:45: (three) [place] 04 times Medical daily. Branch famotidine 2020-02 Yes 40mg Take 40 mg U nivers 40 mg 02 by mouth ity of tablet 03:45: at [place] [address] bedtime. Medical Branch diphenoxyla 2020-02 Yes 1{tbl} Take 1 Un matt te-atropine 1-02 tablet by ity of (LOMOTIL) 03:45: mouth [place] 2.5-0.025 04 needed. Medical mg tablet Branch furosemide 2020-02 Yes [id number] 20mg Take 1 U nivers 20 mg 1-01 tablet by ity of tablet 00:00: mouth [place] 00 every Medical Sunday, Branch Sunday and Sunday. furosemide 2020-02 Yes [id number] 20mg Take 1 U nivers 20 mg 1-01 tablet by ity of tablet 00:00: mouth [place] 00 every Medical Sunday, Branch Sunday and Sunday. furosemide 2020-02 Yes [id number] 20mg Take 1 U nivers 20 mg 1-01 tablet by ity of tablet 00:00: mouth [place] 00 every Medical Sunday, Branch Sunday and Sunday. furosemide 2020-02 Yes [id number] 20mg Take 1 U nivers 20 mg 1-01 tablet by ity of tablet 00:00: mouth [place] 00 every Medical Sunday, Branch Sunday and Sunday. furosemide 2020-02 Yes [id number] 20mg Take 1 U nivers 20 mg 1-01 tablet by ity of tablet 00:00: mouth [place] 00 every Medical Sunday, Branch Sunday and Sunday. furosemide 2020-02 Yes [id number] 20mg Take 1 U nivers 20 mg 1-01 tablet by ity of tablet 00:00: mouth [place] 00 every Medical Sunday, Branch Sunday and Sunday. furosemide 2020-02 Yes [id number] 20mg Take 1 U nivers 20 mg 1-01 tablet by ity of tablet 00:00: mouth [place] 00 every Medical Sunday, Branch Sunday and Sunday. furosemide 2020-02 Yes [id number] 20mg Take 1 U nivers 20 mg 1-01 tablet by ity of tablet 00:00: mouth [place] 00 every Medical Sunday, Branch Sunday and Sunday. furosemide 2020-02 Yes [id number] 20mg Take 1 U nivers 20 mg 1-01 tablet by ity of tablet 00:00: mouth [place] 00 every Medical Sunday, Branch Sunday and Sunday. furosemide 2020-02 Yes [id number] 20mg Take 1 U nivers 20 mg 1-01 tablet by ity of tablet 00:00: mouth [place] 00 every Medical Sunday, Branch Sunday and Sunday. furosemide 2020-02 Yes [id number] 20mg Take 1 U nivers 20 mg 1-01 tablet by ity of tablet 00:00: mouth [place] 00 every Medical Sunday, Branch Sunday and Sunday. furosemide 2020-02 Yes [id number] 20mg Take 1 U nivers 20 mg 1-01 tablet by ity of tablet 00:00: mouth [place] 00 every Medical Sunday, Branch Sunday and Sunday. furosemide 2020-02 Yes [id number] 20mg Take 1 U nivers 20 mg 1-01 tablet by ity of tablet 00:00: mouth [place] 00 every Medical Sunday, Branch Sunday and Sunday. furosemide 2020-02 Yes [id number] 20mg Take 1 U nivers 20 mg 1-01 tablet by ity of tablet 00:00: mouth [place] 00 every Medical Sunday, Branch Sunday and Sunday. furosemide 2020-02 Yes [id number] 20mg Take 1 U nivers 20 mg 1-01 tablet by ity of tablet 00:00: mouth [place] 00 every Medical Sunday, Branch Sunday and Sunday. furosemide 2020-02 Yes [id number] 20mg Take 1 U nivers 20 mg 1-01 tablet by ity of tablet 00:00: mouth [place] 00 every Medical Sunday, Branch Sunday and Sunday. furosemide 2020-02 Yes [id number] 20mg Take 1 U nivers 20 mg 1-01 tablet by ity of tablet 00:00: mouth [place] 00 every Medical Sunday, Branch Sunday and Sunday. metoprolol 2020-02 Yes 25mg Take 25 mg U nivers succinate 0-31 by mouth ity of (TOPROL XL 16:03: daily. [facility]) Medical Branch inFLIXimab 2020-02 Yes 840mg Inject 840 Univers (REMICADE) 0-31 mg ity of 100 mg 16:03: intravenou [place] injection 38 sly every Medic al 6 (six) Branch weeks. predniSONE 2020-02 Yes 20mg Take 20 mg U nivers 10 mg 0-31 by mouth ity of tablet 16:03: daily. [place] [address] Medical Branch Hydrocodone 2020-02 Yes 1{tbl} Take 1 Un matt -Acetaminop 0-31 tablet by ity of hen 7.5-300 16:03: mouth 3 [place] as mg tablet 38 (three) Medical times [place] daily. tiZANidine 2020-02 Yes 4mg Take 4 mg Un matt 4 mg tablet 0-31 by mouth 3 it y of 16:03: (three) [place] [address] times [facility] daily. Branch foLIC acid 2020-02 Yes 3mg Take 3 mg Un matt 1 mg tablet 0-31 by mouth ity of 16:03: daily. [place] [address] Medical Branch methocarbam 2020-02 Yes 500mg Take 500 U nivers oL 500 mg 0-31 mg by ity of tablet 16:03: mouth at [place] [address] bedtime. Medical Branch dicyclomine 2020-02 Yes 20mg Take 20 mg Univers 20 mg 0-31 by mouth 3 ity of tablet 16:03: (three) [place] [address] times Medical daily. Branch famotidine 2020-02 Yes 40mg Take 40 mg U nivers 40 mg 0-31 by mouth ity of tablet 16:03: at [place] [address] bedtime. Medical Branch albuterol 2021-1 Yes 2{puff} Inhale 2 U nivers 90 [...] (TOPROL XL 16:03: daily. [place] ORAL) 38 [facility] inFLIXimab 2020-02 Yes 840mg Inject 840 Univers (REMICADE) 0-31 mg ity of 100 mg 16:03: intravenou [place] injection 38 sly every Medic al 6 (six) Branch weeks. metoprolol 2020-02 Yes 25mg Take 25 mg U nivers succinate 0-31 by mouth ity of (TOPROL XL 16:03: daily. [place] ORAL) [address] [place] [address] inFLIXimab 2020-02 Yes 840mg Inject 840 Univers (REMICADE) 0-31 mg ity of 100 mg 16:03: intravenou [place] injection 38 sly every Medic al 6 (six) Branch weeks. metoprolol 2020-02 Yes 25mg Take 25 mg U nivers succinate 0-31 by mouth ity of (TOPROL XL 16:03: daily. [place] ORAL) Medical Branch inFLIXimab 2020-02 Yes 840mg Inject 840 Univers (REMICADE) 0-31 mg ity of 100 mg 16:03: intravenou [place] injection 38 sly every Medic al 6 (six) Branch weeks. metoprolol 2020-02 Yes 25mg Take 25 mg U nivers succinate 0-31 by mouth ity of (TOPROL XL 16:03: daily. [place] ORAL) [address] [place] [address] inFLIXimab 2020-02 Yes 840mg Inject 840 Univers [...] weekly. Medical Branch NaCl 0.9% 2020-02- No [id number] 1000mg Infuse Univers (NS) PgBk 0-31 11-11 1,000 mg ity o f 50 mL with 00:00: 05:59 every 12 [place] ceFEPIme 1 00 :00 (twelve) Medic al gram SolR hours for Branc h 1,000 mg 10 days. vancomycin/ 2020-02 No [id number] 1500mg 1,500 mg Univers 0.9 % sod 11 by IV ity of chloride 00:00: 05:59 [place]fusion [place] (VANCOMYCIN 00 :00 route Medical 1500 MG IN every 24 Branc h NS 500 ML) (twenty-fo 1.5 ur) hours gram/500 mL for 10 Soln days. NaCl 0.9% 2020-02 No [id number] 1000mg Infuse Univers (NS) PgBk 12-23 1,000 mg ity o f 50 mL with 00:00: 05:59 every 12 [place] ceFEPIme 1 00 :00 (twelve) Medic al gram SolR hours for Branc h 1,000 mg 10 days. vancomycin/ 2020-02 No [id number] 1500mg 1,500 mg Univers 0.9 % sod [...] uration of therapy: 7 days KCL 2020-02 40meq 40 mEq, Univers (KLOR-CON 0-30 Oral, ity of M20) tablet 23:30: 01:25 ONCE, 1 [place] 40 mEq 00 :00 dose, On Medical Fri Branch 12/10/20 at 1830, Routine tolvaptan 2020-02- No 15mg 15 mg, Unive rs (SAMSCA) 0- 10-30 Oral, ONCE ity of tablet 15 23:30: 01:25 NOW, 1 [place] mg 00 :00 dose, On Medical Sun Branch 12/10/20 at 1830, Routine
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
Reas on for Anti-Infec tive: Documented Infection< br>Documen karly Infection Site: Skin / Soft Tissue
Duration of Therapy: Other (see Comments) potassium 2020-02 No 30mmol 30 mmol, U nivers phosphate 0- 10-29 IV ity of 30 mmol in 13:15: 14:16 [place]back, [place] NaCl 0.9% 00 :00 ONCE, 1 Medical [...] No 10mg 10 mg, Unive rs (MIDAMOR) 0-29 10-30 Oral, BID, ity of tablet 10 01:00: 15:49 First dose [place] mg 00 :55 on [facility] Medical 12/09/20 Branch at 2000, Until Discontinu ed, Routine potassium 2020-02 No 15mmol 15 mmol, U nivers phosphate 012-09 IV ity of 15 mmol in 15:45: 16:34 Piggyback, [place] NaCl 0.9% 00 :00 ONCE, 1 Medical (NS) 150 mL dose, On Bran ch piggyback [facility] 12/09/20 at 1045, 150 mL predniSONE 2020-02 Yes 30mg 30 mg, Unive rs (DELTASONE) 0 Oral, ity of tablet 30 15:00: DAILY, [place] mg 00 First dose Medical on [facility] 12/09/20 at 1000, Until Discontinu ed, Routine calcitrioL 2020-02 Yes .5ug 0.5 mcg, Uni vers (ROCALTROL) 0 Oral, ity of capsule 0.5 15:00: DAILY, [place] mcg 00 First dose Medical on [facility] 12/09/20 at 1000, Until Discontinu ed, Routine KCL 2020-02 No 40meq 40 mEq, Univers (KLOR-CON 12-09 Oral, Q4H, ity of M20) tablet 15:00: 16:35 2 doses, [place] 40 mEq 00 :00 First dose Medical (after Branch last modificati on) on [place] 12/09/20 at 1000, Last dose on Sun12/09/20 at 1200, Routine hydrocortis 2020-02 No 60mg 60 mg, IV Univers one sod 12-09 Piggyback, ity o f succ 13:43: 14:47 DAILY, [place] (CORTEF) 60 13 :30 First dose Me dical mg in NaCl (after Branch 0.9% (NS) last piggyback modificati on) on [facility] 12/09/20 at 0900, Until Discontinu ed, Administer over 30 Minutes, 60 mL iopamidol 2020-02 No [id number] 120mL 120 mL, Univers (ISOVUE 12-08 Intravenou ity o f 370-500 mL) 17:23: 17:24 s, ONCE, 1 [place] injection 00 :00 dose, On Medica l 120 mL Sun [place] 12/08/20 at 1245, Routine KCL 2020-02 No 20meq 20 mEq, Univers (KLOR-CON 12-09 Oral, ity of M20) tablet 14:00: 14:47 DAILY, [place] 20 mEq 00 :30 First dose Medical on [facility] 12/08/20 at 0900, Until Discontinu ed, Routine hydrocortis 2020-02- No 60mg 60 mg, IV Univers one sod 12-09 Piggyback, ity o f succ 01:00: 13:43 Q12H, [place] (CORTEF) 60 00 :20 First dose Me dical mg in NaCl (after Branch 0.9% (NS) last piggyback modificati on) on 12/07/20 at 2000, Until Discontinu ed, Administer over 30 Minutes, 60 mL lidocaine 2020-02 Yes 5mL 5 mL, Univers 1% (PF) 0 Subcutaneo ity of (XYLOCAINE) 18:44: us, PRN, [place] injection 5 15 Starting Medi bernadine mL on [facility] 12/07/20 at 1344, Until Discontinu ed, Routine, Local anesthesia NaCl 0.9% 2020-02 Yes 10mL 10 mL, Univer s (NS) 0-26 Slow IV ity of injection 17:49: Push, PRN, [place] 10 mL 04 Starting Medical on [facility] 12/07/20 at 1249, Until Discontinu ed, Routine, line maintenanc e KCL 2020-02- No 20meq 20 mEq, Univers (KLOR-CON 012-07 Oral, ity of M20) tablet 14:45: 13:52 ONCE, 1 [place] 20 mEq 00 :00 dose, On Medical [facility] 12/07/20 at 0945, Routine diphenoxyla 2020-02 Yes [...] dose [place] (MACROBID) 00 :09 on [facility] Medical 100 mg 12/06/20 Branch capsule 100 at 2000, mg Until Discontinu ed, Routine
Reason for Anti-Infec tive: Documented Infection< br>Documen karly Infection Site: Urine
D uration of Therapy: 7 days lactobacill 2020-02 Yes .5mg 0.5 mg, Uni vers us 0-25 Oral, TID, ity of acidophilus 19:00: First dose [place] tablet 0.5 00 on [facility] Medical mg 12/06/20 Branch at 1400, Until Discontinu ed, Routine diphenoxyla 2020-02- No 1{tbl} 1 tablet, Univers te-atropine 0-25 10- Oral, TID, i ty of (LOMOTIL) 19:00: 02:34 First dose [place] 2.5-0.025 00 :00 (after Medical mg tablet 1 last Branch tablet modificati on) on Sun12/06/20 at 1400, Until Discontinu ed, Routine vancomycin 2020-02 No 15mg/kg 1,250 mg Univers 1250 mg in 0-12-09 (rounded ity of NS 250 mL 18:30: 23:35 from 1,305 [place] RTU IV 00 :38 mg = 15 Medical [place] mg/kg ?87 Branc h 1,250 mg kg), IV [place], Q12H ABX, First dose (after last modificati on) on [facility] 12/06/20 at 1330, Until Discontinu ed, Administer over 90 Minutes
Reason for Anti-Infec tive: Empiric Therapy for Suspected Infection< br>Empiric Therapy Site: Blood
D uration of therapy: 7 days metoprolol 2020-02 Yes 25mg 25 mg, Unive rs succinate 0-25 Oral, ity of XL (TOPROL 14:00: DAILY, [place] XL) tablet 00 First dose Med ical 25 mg on [facility] Branch 12/06/20 at 0900, Until Discontinu ed foLIC acid 2020-02 Yes 3mg 3 mg, Univer s (FOLATE) 0-25 Oral, ity of tablet 3 mg 14:00: DAILY, [place] 00 First dose Medical on [facility] Branch 12/06/20 at 0900, Until Discontinu ed, Routine diphenoxyla 2020-02- No 1{tbl} 1 tablet, Univers te-atropine 0-25 10-25 Oral, ity of (LOMOTIL) 14:00: 17:51 DAILY, [place] 2.5-0.025 00 :45 First dose Medi bernadine mg tablet 1 on [facility] Branch tablet 12/06/20 at 0900, Until Discontinu ed, Routine gabapentin 2020-02 Yes 600mg 600 mg, Uni vers (NEURONTIN) 0-25 Oral, TID, it y of tablet 600 13:00: First dose [place] mg 00 on [facility] Medical 12/06/20 Branch at 0800, Until Discontinu ed, Routine hydrocortis 2020-02- No 60mg 60 mg, IV Univers one sod 12-07 Piggyback, ity o f succ 11:00: 22:27 Q8H, First [place] (CORTEF) 60 00 :12 dose on Medic al mg in NaCl [facility] Branch 0.9% (NS) 12/06/20 piggyback at [...] 0-25 Oral, ity of imeth 09:20: Q6HPRN, [place] (MAALOX 42 Starting Medical PLUS / on Sun Branch MAG-AL 12/06/20 PLUS) at 0420, 200-200-20 Until mg/5 mL Discontinu suspension ed, 30 mL Routine, Indigestio n vancomycin 2020-02- No 15mg/kg 1,250 mg Univers 1250 mg in 0-25 25 (rounded ity of NS 250 mL 04:30: 16:56 from 1,305 [place] RTU IV 00 :46 mg = 15 Medical [place] mg/kg ?87 Branc h 1,250 mg kg), IV [place]gy[place], Q12H ABX, First dose on 12/05/20 at 2330, Until Discontinu ed, Administer over 90 Minutes
Reason for Anti-Infec tive: Empiric Therapy for Suspected Infection< br>Empiric Therapy Site: Blood
D uration of therapy: 7 days heparin 2020-02 Yes 5000U 5,000 Univers (porcine) 0-25 Units, ity of injection 03:00: Subcutaneo [place] 5,000 Units 00 us, Q8H, Medi bernadine First dose Branch on 12/05/20 at 2200, Until Discontinu ed, Routine busPIRone 2020-02 Yes 20mg 20 mg, Univer s (BUSPAR) 0-25 Oral, TID, ity o f tablet 20 02:30: First dose [place] mg 00 (after Medical last Branch modificati on) on 12/05/20 at 2130, Until Discontinu ed, Routine morpHINE 2020-02- No 2mg 2 mg, Slow Un matt injection 2 0-25 10-25 IV Push, ity of mg 02:26: 09:22 Q4HPRN, [place] 54 :17 Starting Medical on [facility] 12/05/20 at 2125, Until Sun12/06/20 at 0422, Routine, breakthrou gh proCHLORper 2020-02 Yes 10mg 10 mg, Univ ers azine 0-25 Slow IV ity of (COMPAZINE) 02:25: Push, [place] injection 36 Q6HPRN, Medical 10 mg Starting Branch on [place] 12/05/20 at 5, Until Discontinu ed, Routine, Nausea and Vomiting (N/V) LORazepam 2020-02 Yes 1mg 1 mg, Univers (ATIVAN) 0-25 Oral, ity of tablet 1 mg 02:21: QHSPRN, [place] 44 Starting Medical on [facility] 12/05/20 at 2120, Until Discontinu ed, Routine, Anxiety, Agitation, insomnia HYDROcodone 2020-02- No 7.5mg 7.5 mg, U nivers -acetaminop 0-25 10-25 Oral, ity of hen (HYCET) 02:21: 09:22 Q6HPRN, [place] 7.5-325 29 :17 Starting Medical mg/15 mL on [facility] solution 12/05/20 7.5 mg at 2120, Until Sun12/06/20 at 0422, Pain (scale 7-10) albuterol 2020-02 Yes 2{puff} 2 Puff, Un matt (VENTOLIN) 0-25 Inhalation ity of inhaler 2 02:20: , Q4HPRN, [place] as Puff 03 Starting Medical on [facility] 12/05/20 at 2120, Until Discontinu ed, Routine, Wheezing, Shortness of Breath potassium 2020-02- No 10meq 10 mEq, IV Univers chloride in 0-25 10-25 Piggyback, i ty of water 10 02:00: 05:59 Q1H, 4 [place] mEq/100 mL 00 :00 doses, Medical RTU 10 mEq First dose Bra nch on Sun12/05/20 at 2100, Last dose on [...] mL 00 :00 dose, On Medical (ISO-OSM) [facility] RTU IV 12/05/20 infusion 2 at 2014, g Routine potassium 2020-02- No 10meq 10 mEq, IV Univers chloride in 0-25 10-25 Piggyback, i ty of water 10 01:00: 03:07 Q1H, 4 [place] mEq/100 mL 00 :43 doses, Medical RTU 10 mEq First dose Bra nch on 12/05/20 at 2000, Last dose on 12/05/20 at 2300, Administer over 60 Minutes, 100 mL KCL 2020-02 No 40meq 40 mEq, Univers (KLOR-CON 0-25 10-25 Oral, Q1H, ity of M20) tablet 01:00: 02:59 2 doses, [place] 40 mEq 00 :00 First dose Medical on [place] [facility] 12/05/20 at 2000, Last dose on [place] 12/05/20 at 2100, Routine NaCl 0.9% 2020-02- No 1000mL at 150 Uni vers (NS) IV 0-24 10-26 mL/hr, ity of infusion 22:45: 20:37 [place]venou [place] 1,000 mL 00 :12 s, Medical CONTINUOUS Branch , Starting on 12/05/20 at 1745, Until Tu12/07/20 at 1537, Routine [...] CONTINUOUS Medic al , Starting Branch on [place] 12/05/20 at 1630, Until [place] 12/05/20 at 1900, Routine NaCl 0.9% 2020-02- No 1000mL at 999 Uni vers (NS) bolus 0-24 10-24 mL/hr, ity of infusion 21:30: 21:43 1,000 mL, [place] 1,000 mL 00 :00 IV Medical Infusion, Branch ONCE, 1 dose, On [place] 12/05/20 at 1630, STAT ondansetron 2020-02 Yes 4mg 4 mg, Slow Univers (ZOFRAN 0-24 IV Push, ity of (PF)) 21:29: Q6HPRN, [place] injection 4 30 Starting Medi bernadine mg on [facility] 12/05/20 at 1629, Until Discontinu ed, Routine, Nausea and Vomiting (N/V) acetaminoph 2020-02 Yes 650mg 650 mg, Un matt en 0-24 Oral, ity of (TYLENOL) 21:29: Q6HPRN, [place] tablet 650 19 Starting Medic al mg on [facility] 12/05/20 at 1629, Until Discontinu ed, Routine, Pain (scale 1-3), Temp > 38.5 C dicyclomine 2020-02- No 20mg Take 20 mg Univers 20 mg 0-24 10-24 by mouth 3 ity of tablet 21:23: 00:00 (three) [place] 29 :00 times Medical daily. Branch erenumab-ao 2020-02- No inject Uni vers oe (AIMOVIG 0-24 10-24 under the it y of AUTOINJECTO 21:23: 00:00 [place] R) 140 29 :00 Medical mg/mL AtIn [place] dicyclomine 2020-02- No 20mg Take 20 mg Univers 20 mg 0-24 10-24 by mouth 3 ity of tablet 21:23: 00:00 (three) [place] 29 :00 times Medical daily. Branch erenumab-ao 2020-02- No inject Uni vers oe (AIMOVIG 0-24 10-24 under the it y of AUTOINJECTO 21:23: 00:00 [place] R[place] 140 29 :00 Medical mg/mL AtIn Branch dicyclomine 2020-02- No 20mg Take 20 mg Univers 20 mg 0-24 10-24 by mouth 3 ity of tablet 21:23: 00:00 (three) [place] 29 :00 times Medical daily. Branch erenumab-ao 2020-02- No inject Uni vers oe (AIMOVIG 0-24 10-24 under the it y of AUTOINJECTO 21:23: 00:00 [place] R[place] 140 29 :00 Medical mg/mL AtIn Branch dicyclomine 2020-02- No 20mg Take 20 mg [...] 2 [place] 00 :00 (two) Medical times [place] daily. sulfamethox 2020-02- No 1{tbl} Take 1 U nivers azole-trime 0-20 10-31 tablet by it y of thoprim 00:00: 00:00 mouth 2 [place] 400-80 mg 00 :00 (two) Medical per tablet times [place] daily. AIMOVIG Yes 140mg INJECT 140 Uni vers AUTOINJECTO 8-31 MG UNDER ity of R 140 mg/mL 00:00: THE SKIN [place] AtIn 00 ONCE EVERY Medical MONTH. [place] AIMOVIG Yes 140mg INJECT 140 Uni vers AUTOINJECTO 8-31 MG UNDER ity of R 140 mg/mL 00:00: THE SKIN [place] AtIn 00 ONCE EVERY Medical MONTH. [place] AIMOVIG Yes 140mg INJECT 140 Uni vers AUTOINJECTO 8-31 MG UNDER ity of R 140 mg/mL 00:00: THE SKIN [place] AtIn 00 ONCE EVERY Medical MONTH. [place] AIMOVIG 0 Yes 140mg INJECT 140 Uni vers AUTOINJECTO 8-31 MG UNDER ity of R 140 mg/mL 00:00: THE SKIN [place] AtIn 00 ONCE EVERY Medical MONTH. [place] AIMOVIG Yes 140mg INJECT 140 Uni vers [...] [place] AtIn 00 ONCE EVERY Medical MONTH. [place] AIMOVIG Yes 140mg INJECT 140 Uni vers [...] dose Me dical 400 mg on [place] 07/15/20 at 0900, Until Discontinu ed, Routine busPIRone 0 Yes 20mg 20 mg, Univer s (BUSPAR) 6-03 Oral, BID, ity o f tablet 20 01:00: First dose [place] mg 00 on [place] Medical 07/14/20 at [place] 2000, Until Discontinu ed, Routine magnesium 2020-0 Yes [id number] 400mg Take 400 Univers oxide 420 6-03 mg by ity of mg Tab 00:00: mouth [place] 00 daily. Medical Branch magnesium 2020-0 Yes [id number] 400mg Take 400 Univers oxide 420 6-03 mg by ity of mg Tab 00:00: mouth [place] 00 daily. Medical [place] magnesium 2020-0 Yes [id number] 400mg Take 400 Univers oxide 420 6-03 mg by ity of mg Tab 00:00: mouth [place] 00 daily. Medical [place] magnesium 2020-0 Yes [id number] 400mg Take 400 Univers oxide 420 6-03 mg by ity of mg Tab 00:00: mouth [place] 00 daily. Medical [place] magnesium 2020-0 Yes [id number] 400mg Take 400 Univers oxide 420 6-03 mg by ity of mg Tab 00:00: mouth [place] 00 daily. [facility] magnesium 2020-0 Yes [id number] 400mg Take 400 Univers oxide 420 6-03 mg by ity of mg Tab 00:00: mouth [place] 00 daily. [facility] magnesium 2020-0 Yes [id number] 400mg Take 400 Univers oxide 420 6-03 mg by ity of mg Tab 00:00: mouth [place] 00 daily. [facility] magnesium 2020-0 Yes [id number] 400mg Take 400 Univers oxide 420 6-03 mg by ity of mg Tab 00:00: mouth [place] 00 daily. Medical Branch magnesium 2021-0 Yes [id number] 400mg Take 400 Univers oxide 420 6-03 mg by ity of mg Tab 00:00: mouth [place] 00 daily. Medical Branch magnesium 0 Yes [id number] 400mg Take 400 Univers oxide 420 6-03 mg by ity of mg Tab 00:00: mouth [place] 00 daily. Medical Branch magnesium 0 Yes [id number] 400mg Take 400 Univers oxide 420 6-03 mg by ity of mg Tab 00:00: mouth [place] 00 daily. Medical Branch magnesium 0 Yes [id number] 400mg Take 400 Univers oxide 420 6-03 mg by ity of mg Tab 00:00: mouth [place] 00 daily. Medical Branch magnesium 0 Yes [id number] 400mg Take 400 Univers oxide 420 6-03 mg by ity of mg Tab 00:00: mouth [place] 00 daily. Medical Branch magnesium Yes [id number] 400mg Take 400 Univers oxide 420 6-03 mg by ity of mg Tab 00:00: mouth [place] 00 daily. Medical Branch magnesium 2020-0 2020- No [id number] 400mg Take 400 Univers oxide 420 6-03 10-24 mg by ity of mg Tab 00:00: 00:00 mouth [place] 00 :00 daily. Medical Branch magnesium 2020-0 2020- No [id number] 400mg Take 400 Univers oxide 420 6-03 10-24 mg by ity of mg Tab 00:00: 00:00 mouth [place] 00 :00 daily. Medical Branch magnesium 0 2020- No [id number] 400mg Take 400 Univers oxide 420 6-03 [...] [place] 16 times Medical daily. Branch erenumab-ao 2021-0 Yes inject Univ ers oe (AIMOVIG 6-02 [...] 140 16 Medical mg/mL AtIn Branch LORazepam 2021-0 Yes 2mg 2 mg, Univers (ATIVAN) 6-02 Oral, ity of tablet 2 mg 23:04: QHSPRN, 1 [place] 49 dose, Medical Starting Branch 07/14/20 at 1804, Until Discontinu ed, Routine, insomnia metoprolol Yes 25mg Take 25 mg U [...] 15mg 15 mg, Unive rs (TORADOL) 07-14 06-03 Slow IV ity of injection 17:00: 16:59 Push, Q6H, [place] 15 mg 00 :00 4 doses, Medical First dose Branch on Sun07/14/20 at 1200, Last dose on [place] 07/15/20 at 0600, Routine
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 Restricted medication : JUDE [...] First dose Medi bernadine 40 mg on Sun07/14/20 at 0900, Until Discontinu ed, Routine azaTHIOprin Yes 150mg 150 mg, Un matt e (IMURAN) 07-14 Oral, ity of tablet 150 14:00: DAILY, [place] mg 00 First dose Medical on Sun07/14/20 at 0900, Until Discontinu ed, Routine losartan Yes 50mg 50 mg, Univers (COZAAR) 07-14 Oral, ity of tablet 50 14:00: DAILY, [place] mg 00 First dose Medical on Sun07/14/20 at 0900, Until Discontinu ed, Routine metoprolol Yes 25mg 25 mg, Unive rs succinate 07-14 Oral, ity of XL (TOPROL 14:00: DAILY, [place] XL) tablet 00 First dose Med ical 25 mg on Sun07/14/20 at 0900, Until Discontinu ed heparin Yes [...] Branch 0800, Until Discontinu ed, Routine ketorolac No 15mg 15 mg, Unive rs (TORADOL) 07-14 Slow IV ity of injection 11:15: 13:07 Push, [place] 15 mg 00 :00 ONCE, 1 Medical dose, Sun07/14/20 at 0615, Routine
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 Restricted medication : CHRISTINA [...] 07-14 Oral, ity of (TYLENOL) 10:11: Q6HPRN, [place] tablet 650 51 Starting Medic al mg Sun07/14/20 Branch at 0511, Until Discontinu ed, Routine, Pain (scale 4-6) docusate Yes 100mg 100 mg, Unive rs (COLACE) 07-14 Oral, ity of capsule 100 10:11: QDAILYPRN, [place] mg 50 Starting Medical 07/14/20 Branch at 0511, Until Discontinu ed, Routine, Constipati on diphenhydrA 2020- No 25mg 25 mg, Uni vers MINE 07-14 Slow IV ity of (BENADRYL) 01:00: 09:39 Push, [place] injection 00 :00 ONCE, 1 Medical 25 mg dose, [facility] 07/13/20 at 1999, STAT metoclopram 2020- No 10mg 10 mg, Uni vers marilyn HCl 07-14 Slow IV ity of (REGLAN) 01:00: 09:39 Push, [place] injection 00 :00 ONCE, 1 Medical 10 mg dose, [facility] 07/13/20 at 1999, GIGI amitriptyli Yes [id number] 25mg Take 1 Univers ne 25 mg 07-14 tablet by ity of tablet 00:00: mouth at [place] 00 bedtime. [facility] Branch riboflavin, Yes [id number] 400mg Take 400 Univers vitamin B2, 6-02 mg by ity of 400 mg Tab 00:00: mouth [place] 00 daily. Medical Branch amitriptyli 0 Yes [id number] 25mg Take 1 Univers ne 25 mg 6-02 tablet by ity of tablet 00:00: mouth at [place] bedtime. Medical Branch riboflavin, 0 Yes [id number] 400mg Take 400 Univers vitamin B2, 6-02 mg by ity of 400 mg Tab 00:00: mouth [place] 00 daily. Medical Branch amitriptyli Yes [id number] 25mg Take 1 Univers ne 25 mg 6-02 tablet by ity of tablet 00:00: mouth at [place] bedtime. Medical Branch riboflavin, Yes [id number] 400mg Take 400 Univers vitamin B2, 6-02 mg by ity of 400 mg Tab 00:00: mouth daily. Medical Branch amitriptyli Yes [id number] 25mg Take 1 Univers ne 25 mg 6-02 tablet by ity of tablet 00:00: mouth at [place] bedtime. Medical Branch riboflavin, Yes [id number] 400mg Take 400 Univers vitamin B2, 6-02 mg by ity of 400 mg Tab 00:00: mouth daily. Medical Branch amitriptyli Yes [id number] 25mg Take 1 Univers ne 25 mg 6-02 tablet by ity of tablet 00:00: mouth at [place] bedtime. Medical Branch riboflavin, Yes [id number] 400mg Take 400 Univers vitamin B2, 6-02 mg by ity of 400 mg Tab 00:00: mouth [place] daily. Medical Branch amitriptyli 0 Yes [id number] 25mg Take 1 Univers ne 25 mg 6-02 tablet by ity of tablet 00:00: mouth at [place] bedtime. Medical Branch riboflavin, 0 Yes [id number] 400mg Take 400 Univers vitamin B2, 6-02 mg by ity of 400 mg Tab 00:00: mouth [place] 00 daily. Medical Branch amitriptyli 0 Yes [id number] 25mg Take 1 Univers ne 25 mg 6-02 tablet by ity of tablet 00:00: mouth at [place] bedtime. Medical Branch riboflavin, 0 Yes [id number] 400mg Take 400 Univers vitamin B2, 6-02 mg by ity of 400 mg Tab 00:00: mouth [place] 00 daily. Medical Branch amitriptyli Yes [id number] 25mg Take 1 Univers ne 25 mg 6-02 tablet by ity of tablet 00:00: mouth at [place] bedtime. Medical Branch riboflavin, 0 Yes [id number] 400mg Take 400 Univers vitamin B2, 6-02 mg by ity of 400 mg Tab 00:00: mouth [place] 00 daily. Medical Branch amitriptyli Yes [id number] 25mg Take 1 Univers ne 25 mg 6-02 tablet by ity of tablet 00:00: mouth at [place] bedtime. Medical Branch riboflavin, Yes [id number] 400mg Take 400 Univers vitamin B2, 6-02 mg by ity of 400 mg Tab 00:00: mouth [place] 00 daily. Medical Branch amitriptyli Yes [id number] 25mg Take 1 Univers ne 25 mg 6-02 tablet by ity of tablet 00:00: mouth at [place] bedtime. Medical Branch riboflavin, Yes [id number] 400mg Take 400 Univers vitamin B2, 6-02 mg by ity of 400 mg Tab 00:00: mouth daily. Medical Branch amitriptyli Yes [id number] 25mg Take 1 Univers ne 25 mg 6-02 tablet by ity of tablet 00:00: mouth at [place] bedtime. Medical Branch riboflavin, Yes [id number] 400mg Take 400 Univers vitamin B2, 6-02 mg by ity of 400 mg Tab 00:00: mouth daily. Medical Branch amitriptyli Yes [id number] 25mg Take 1 Univers ne 25 mg 6-02 tablet by ity of tablet 00:00: mouth at [place] bedtime. Medical Branch riboflavin, 0 Yes [id number] 400mg Take 400 Univers vitamin B2, 6-02 mg by ity of 400 mg Tab 00:00: mouth [place] 00 daily. Medical Branch amitriptyli Yes [id number] 25mg Take 1 Univers ne 25 mg 6-02 tablet by ity of tablet 00:00: mouth at [place] bedtime. Medical Branch riboflavin, Yes [id number] 400mg Take 400 Univers vitamin B2, 6-02 mg by ity of 400 mg Tab 00:00: mouth [place] 00 daily. Medical Branch amitriptyli Yes [id number] 25mg Take 1 Univers ne 25 mg 6-02 tablet by ity of tablet 00:00: mouth at [place] 00 bedtime. Medical Branch riboflavin, Yes [id number] 400mg Take 400 Univers vitamin B2, 6-02 mg by ity of 400 mg Tab 00:00: mouth [place] 00 daily. Medical Branch amitriptyli 2020- No [id number] 25mg Take 1 Univers ne 25 mg 6-02 10-24 tablet by ity o f tablet 00:00: 00:00 mouth at [place] 00 :00 bedtime. Medical Branch riboflavin, 2020- No [id number] 400mg Take 400 Univers vitamin B2, 6-02 10-24 mg by ity of 400 mg Tab 00:00: 00:00 mouth [place] 00 :00 daily. Medical Branch amitriptyli 2020- No [id number] 25mg Take 1 Univers ne 25 mg 6-02 10-24 tablet by ity o f tablet 00:00: 00:00 mouth at [place] 00 :00 bedtime. Medical Branch riboflavin, 2020- No [id number] 400mg Take 400 Univers vitamin B2, 6-02 10-24 mg by ity of 400 mg Tab 00:00: 00:00 mouth [place] 00 :00 daily. Medical Branch amitriptyli 2020- No [id number] 25mg Take 1 Univers ne 25 mg 6-02 10-24 tablet by ity o f tablet 00:00: 00:00 mouth at [place] 00 :00 bedtime. Medical Branch riboflavin, 2020- No [id number] 400mg Take 400 Univers vitamin B2, 6-02 10-24 mg by ity of 400 mg Tab 00:00: 00:00 mouth [place] 00 :00 daily. Medical Branch metoprolol 2020- No 5mg 5 mg, Slow Univers (LOPRESSOR) 07-07 IV Push, ity of injection 5 04:15: 03:20 ONCE, 1 [place] mg 00 :00 dose, [facility] 07/06/20 at Branch 2315, GIGI ondansetron 2020- No 4mg 4 mg, Slow Univers (ZOFRAN 07-07 IV Push, ity of (PF)) 04:15: 03:20 ONCE, 1 [place] injection 4 00 :00 dose, Tu Med ical mg 07/06/20 at Branch 2315, GIGI morpHINE 2020-0 2020- No 4mg 4 mg, Slow Un matt injection 4 07-07 IV Push, ity of mg 04:15: 03:20 ONCE, 1 [place] 00 :00 dose, [facility] Medical 07/06/20 at Branch 2315, STAT LORazepam 2020-0 2020- No 2mg 2 mg, Univer s (ATIVAN) 07-07 Intramuscu ity of injection 2 03:30: 02:26 lar, ONCE, [place] mg 00 :00 1 dose, Medical [facility] 07/06/20 at 2230, STAT cloNIDine 2020-0 2020- No .2mg 0.2 mg, Univ ers (CATAPRES) 07-07 Oral, ity of tablet 0.2 03:00: 01:58 ONCE, 1 [place] mg 00 :00 dose, [facility] 07/06/20 at Branch 2200, STAT ondansetron 2020-0 2020- No 4mg 4 mg, Univ ers (ZOFRAN-ODT 07-07 Oral, ity of ) 02:00: 01:10 ONCE, 1 [place] disintegrat 00 :00 dose, [facility] Med ical ing tablet 07/06/20 at [facility] 4 mg 2100, Routine butorphanol 2020-2020- No 2mg 2 mg, Univ ers (STADOL) 07-07 Intramuscu ity of injection 2 02:00: 01:10 lar, ONCE [place] mg 00 :00 NOW, 1 Medical dose, [facility] 07/06/20 at 2100, Routine ondansetron 2020-0 Yes [id number] 4mg Take 1 Univers (ZOFRAN) 4 5-25 tablet by ity of mg tablet 00:00: mouth [place] 00 every 8 Medical (eight) Branch hours as needed for Nausea and Vomiting (N/V). ondansetron 2020-0 Yes [id number] 4mg Take 1 Univers (ZOFRAN) 4 5-25 tablet by ity of mg tablet 00:00: mouth [place] 00 every 8 Medical (eight) Branch hours as needed for Nausea and Vomiting (N/V). ondansetron 2020-0 Yes [id number] 4mg Take 1 Univers (ZOFRAN) 4 5-25 tablet by ity of mg tablet 00:00: mouth [place] 00 every 8 Medical (eight) Branch hours as needed for Nausea and Vomiting (N/V). ondansetron 0 Yes [id number] 4mg Take 1 Univers (ZOFRAN) 4 5-25 tablet by ity of mg tablet 00:00: mouth [place] 00 every 8 Medical (eight) Branch hours as needed for Nausea and Vomiting (N/V). ondansetron 0 Yes [id number] 4mg Take 1 Univers (ZOFRAN) 4 5-25 tablet by ity of mg tablet 00:00: mouth [place] 00 every 8 Medical (eight) Branch hours as needed for Nausea and Vomiting (N/V). ondansetron 0 Yes [id number] 4mg Take 1 Univers (ZOFRAN) 4 5-25 tablet by ity of mg tablet 00:00: mouth [place] 00 every 8 Medical (eight) Branch hours as needed for Nausea and Vomiting (N/V). ondansetron 0 Yes [id number] 4mg Take 1 Univers (ZOFRAN) 4 5-25 tablet by ity of mg tablet 00:00: mouth [place] 00 every 8 Medical (eight) Branch hours as needed for Nausea and Vomiting (N/V). ondansetron 0 Yes [id number] 4mg Take 1 Univers (ZOFRAN) 4 5-25 tablet by ity of mg tablet 00:00: mouth [place] 00 every 8 Medical (eight) Branch hours as needed for Nausea and Vomiting (N/V). ondansetron 0 Yes [id number] 4mg Take 1 Univers (ZOFRAN) 4 5-25 tablet by ity of mg tablet 00:00: mouth [place] 00 every 8 Medical (eight) Branch hours as needed for Nausea and Vomiting (N/V). ondansetron 2020-0 Yes [id number] 4mg Take 1 Univers (ZOFRAN) 4 5-25 tablet by ity of mg tablet 00:00: mouth [place] 00 every 8 Medical (eight) Branch hours as needed for Nausea and Vomiting (N/V). ondansetron 1-0 Yes [id number] 4mg Take 1 Univers (ZOFRAN) 4 5-25 tablet by ity of mg tablet 00:00: mouth [place] 00 every 8 Medical (eight) Branch hours as needed for Nausea and Vomiting (N/V). ondansetron 2020-0 Yes [id number] 4mg Take 1 Univers (ZOFRAN) 4 5-25 tablet by ity of mg tablet 00:00: mouth [place] 00 every 8 Medical (eight) Branch hours as needed for Nausea and Vomiting (N/V). ondansetron 2020-0 Yes [id number] 4mg Take 1 Univers (ZOFRAN) 4 5-25 tablet by ity of mg tablet 00:00: mouth [place] 00 every 8 Medical (eight) Branch hours as needed for Nausea and Vomiting (N/V). ondansetron 2020-0 Yes [id number] 4mg Take 1 Univers (ZOFRAN) 4 5-25 tablet by ity of mg tablet 00:00: mouth [place] 00 every 8 Medical (eight) Branch hours as needed for Nausea and Vomiting (N/V). ondansetron 2020-0 Yes [id number] 4mg Take 1 Univers (ZOFRAN) 4 5-25 tablet by ity of mg tablet 00:00: mouth [place] 00 every 8 Medical (eight) Branch hours as needed for Nausea and Vomiting (N/V). ondansetron 2020-0 Yes [id number] 4mg Take 1 Univers (ZOFRAN) 4 5-25 tablet by ity of mg tablet 00:00: mouth [place] 00 every 8 Medical (eight) Branch hours as needed for Nausea and Vomiting (N/V). ondansetron 2021-0 Yes [id number] 4mg Take 1 Univers (ZOFRAN) 4 5-25 tablet by ity of mg tablet 00:00: mouth [place] 00 every 8 Medical (eight) Branch hours as needed for Nausea and Vomiting (N/V). ondansetron 2021-0 Yes [id number] 4mg Take 1 Univers (ZOFRAN) 4 5-25 tablet by ity of mg tablet 00:00: mouth [place] 00 every 8 Medical (eight) Branch hours as needed for Nausea and Vomiting (N/V). ondansetron Yes [id number] 4mg Take 1 Univers (ZOFRAN) 4 5-25 tablet by ity of mg tablet 00:00: mouth [place] 00 every 8 Medical (eight) Branch hours as needed for Nausea and Vomiting (N/V). ondansetron Yes [id number] 4mg Take 1 Univers (ZOFRAN) 4 5-25 tablet by ity of mg tablet 00:00: mouth [place] 00 every 8 Medical (eight) Branch hours as needed for Nausea and Vomiting (N/V). ondansetron Yes [id number] 4mg Take 1 Univers (ZOFRAN) 4 5-25 tablet by ity of mg tablet 00:00: mouth [place] 00 every 8 Medical (eight) Branch hours as needed for Nausea and Vomiting (N/V). ondansetron 2020- No [id number] 4mg Take 1 Univers (ZOFRAN) 4 5-25 10-24 tablet by ity of mg tablet 00:00: 00:00 mouth [place] 00 :00 every 8 Medical (eight) Branch hours as needed for Nausea and Vomiting (N/V). ondansetron 2020- No [id number] 4mg Take 1 Univers (ZOFRAN) 4 5-25 10-24 tablet by ity of mg tablet 00:00: 00:00 mouth [place] 00 :00 every 8 Medical (eight) Branch hours as needed for Nausea and Vomiting (N/V). ondansetron 2020- No [id number] 4mg Take 1 Univers (ZOFRAN) 4 5-25 10-24 tablet by ity of mg tablet 00:00: 00:00 mouth [place] 00 :00 every 8 Medical (eight) Branch hours as needed for Nausea and Vomiting (N/V). butalbital- 2020- No [id number] 1{capsu Take 1 Univers aspirin-caf 5-25 07-14 le} capsule by jelani draper 00:00: 04:59 mouth [place] ne 00 [...] Univers aspirin-caf 5-25 06-02 le} capsule by jelani draper 00:00: 00:00 mouth [place] ne 00 :00 every 4 Medical (FIORINAL-C (four) Branch ODEINE #3) hours as per capsule needed for Pain for up to 7 days. Indication s: acute pain butorphanol 2020- No 1mg 1 mg, IV U nivers (STADOL) 07-04 Push, ity of injection 1 21:15: 20:28 ONCE, 1 [place] mg 00 :00 dose, [facility] 07/04/20 at Branch 1615, Routine proMETHazin 2020- No 25mg 25 mg, IV Univers e 07-04 Piggyback, ity of (PHENERGAN) 21:15: 21:15 ONCE, 1 [place] 25 mg in 00 :00 dose, [facility] NaCl 0.9% 07/04/20 at [facility] (NS) 50 mL 1615, 50 piggyback mL butorphanol 2020- No 1mg 1 mg, IV U nivers (STADOL) 07-04 Push, ity of injection 1 19:30: 19:00 ONCE, 1 [place] mg 00 :00 dose, [facility] 07/04/20 at Branch 1430, Routine LORazepam No 1mg 1 mg, Slow U nivers (ATIVAN) 07-04 IV Push, ity of injection 1 19:30: 19:00 ONCE, 1 [place] mg 00 :00 dose, [facility] 07/04/20 at Branch 1430, STAT NaCl 0.9% 2020- No 1000mL at 999 Uni vers (NS) IV 07-04 mL/hr, IV ity of infusion 19:30: 20:53 Infusion, [place] 1,000 mL 00 :00 ONCE, 1 Medical dose, [facility] 07/04/20 at 1430, Routine dexamethaso 2020- No 10mg 10 mg, IV Univers ne 07-04 Push, ity of (DECADRON 19:30: 19:02 ONCE, 1 [place] PHOSPHATE) 00 :00 dose, [place] Medi bernadine injection 07/04/20 at Bran ch 10 mg 1430, STAT butalbital- 202- No 2{tbl} 2 tablet, Univers acetaminoph 5-23 05-23 Oral, ity of en-caff 19:30: 18:40 ONCE, 1 [place] (ESGIC) 00 :00 dose, [facility] 50-325-40 07/04/20 at Bran ch mg tablet 2 1430, tablet Routine butalbital- Yes [id number] 1{tbl} Take 1 Univers acetaminoph 5-23 tablet by ity of en-caff 00:00: mouth [place] 50-325-40 00 every 6 Medical mg tablet (six) Branch hours as needed for Pain (scale 7-10). butalbital- Yes [id number] 1{tbl} Take 1 Univers acetaminoph 5-23 tablet by ity of en-caff 00:00: mouth [place] 50-325-40 00 every 6 Medical mg tablet (six) Branch hours as needed for Pain (scale 7-10). butalbital- Yes [id number] 1{tbl} Take 1 Univers acetaminoph 5-23 tablet by ity of en-caff 00:00: mouth [place] 50-325-40 00 every 6 Medical mg tablet (six) Branch hours as needed for Pain (scale 7-10). butalbital- Yes [id number] 1{tbl} Take 1 Univers acetaminoph 5-23 tablet by ity of en-caff 00:00: mouth [place] 50-325-40 00 every 6 Medical mg tablet (six) Branch hours as needed for Pain (scale 7-10). butalbital- Yes [id number] 1{tbl} Take 1 Univers acetaminoph 5-23 tablet by ity of en-caff 00:00: mouth [place] 50-325-40 00 every 6 Medical mg tablet (six) Branch hours as needed for Pain (scale 7-10). butalbital- Yes [id number] 1{tbl} Take 1 Univers acetaminoph 5-23 tablet by ity of en-caff 00:00: mouth [place] 50-325-40 00 every 6 Medical mg tablet (six) Branch hours as needed for Pain (scale 7-10). butalbital- Yes [id number] 1{tbl} Take 1 Univers acetaminoph 5-23 tablet by ity of en-caff 00:00: mouth [place] 50-325-40 00 every 6 Medical mg tablet (six) Branch hours as needed for Pain (scale 7-10). butalbital- Yes [id number] 1{tbl} Take 1 Univers acetaminoph 5-23 tablet by ity of en-caff 00:00: mouth [place] 50-325-40 00 every 6 Medical mg tablet (six) Branch hours as needed for Pain (scale 7-10). butalbital- Yes [id number] 1{tbl} Take 1 Univers acetaminoph 5-23 tablet by ity of en-caff 00:00: mouth [place] 50-325-40 00 every 6 Medical mg tablet (six) Branch hours as needed for Pain (scale 7-10). butalbital- Yes [id number] 1{tbl} Take 1 Univers acetaminoph 5-23 tablet by ity of en-caff 00:00: mouth [place] 50-325-40 00 every 6 Medical mg tablet (six) Branch hours as needed for Pain (scale 7-10). butalbital- Yes [id number] 1{tbl} Take 1 Univers acetaminoph 5-23 tablet by ity of en-caff 00:00: mouth [place] 50-325-40 00 every 6 Medical mg tablet (six) Branch hours as needed for Pain (scale 7-10). butalbital- Yes [id number] 1{tbl} Take 1 Univers acetaminoph 5-23 tablet by ity of en-caff 00:00: mouth [place] 50-325-40 00 every 6 Medical mg tablet (six) Branch hours as needed for Pain (scale 7-10). butalbital- Yes [id number] 1{tbl} Take 1 Univers acetaminoph 5-23 tablet by ity of en-caff 00:00: mouth [place] 50-325-40 00 every 6 Medical mg tablet (six) Branch hours as needed for Pain (scale 7-10). butalbital- Yes [id number] 1{tbl} Take 1 Univers acetaminoph 5-23 tablet by ity of en-caff 00:00: mouth [place] 50-325-40 00 every 6 Medical mg tablet (six) Branch hours as needed for Pain (scale 7-10). butalbital- Yes [id number] 1{tbl} Take 1 [facility] acetaminoph 5-23 tablet by ity of en-caff 00:00: mouth [place] 50-325-40 00 every 6 Medical mg tablet (six) Branch hours as needed for Pain (scale 7-10). butalbital- Yes [id number] 1{tbl} Take 1 [facility] acetaminoph 5-23 tablet by ity of en-caff 00:00: mouth [place] 50-325-40 00 every 6 Medical mg tablet (six) Branch hours as needed for Pain (scale 7-10). butalbital Yes [id number] 1{tbl} Take 1 [facility] acetaminoph 5-23 tablet by ity of en-caff 00:00: mouth [place] 50-325-40 00 every 6 Medical mg tablet (six) Branch hours as needed for Pain (scale 7-10). butalbital Yes [id number] 1{tbl} Take 1 [facility] acetaminoph 5-23 tablet by ity of en-caff 00:00: mouth [place] 50-325-40 00 every 6 Medical mg tablet (six) Branch hours as needed for Pain (scale 7-10). butalbital- Yes [id number] 1{tbl} Take 1 [facility] acetaminoph 5-23 tablet by ity of en-caff 00:00: mouth [place] 50-325-40 00 every 6 Medical mg tablet (six) Branch hours as needed for Pain (scale 7-10). butalbital- Yes [id number] 1{tbl} Take 1 [facility] acetaminoph 5-23 tablet by ity of en-caff 00:00: mouth [place] 50-325-40 00 every 6 Medical mg tablet (six) Branch hours as needed for Pain (scale 7-10). butalbital- Yes [id number] 1{tbl} Take 1 [facility] acetaminoph 5-23 tablet by ity of en-caff 00:00: mouth [place] 50-325-40 00 every 6 Medical mg tablet (six) Branch hours as needed for Pain (scale 7-10). butalbital- Yes [id number] 1{tbl} Take 1 [facility] acetaminoph 5-23 tablet by ity of en-caff 00:00: mouth [place] 50-325-40 00 every 6 Medical mg tablet (six) Branch hours as needed for Pain (scale 7-10). butalbital- 2020- No [id number] 1{tbl} Take 1 [facility] acetaminoph 5-23 10-24 tablet by it y of en-caff 00:00: 00:00 mouth [place] 50-325-40 00 :00 every 6 Medical mg tablet (six) Branch hours as needed for Pain (scale 7-10). butalbital- 2020- No [id number] 1{tbl} Take 1 [facility] acetaminoph 5-23 10-24 tablet by it y of en-caff 00:00: 00:00 mouth [place] 50-325-40 00 :00 every 6 Medical mg tablet (six) Branch hours as needed for Pain (scale 7-10). butalbital- 2020- No [id number] 1{tbl} Take 1 [facility] acetaminoph 5-23 10-24 tablet by it y of en-caff 00:00: 00:00 mouth [place] 50-325-40 00 :00 every 6 Medical mg tablet (six) Branch hours as needed for Pain (scale 7-10). butalbital- 2020- No [id number] 1{tbl} Take 1 [facility] acetaminoph 5-23 10-24 [...] at 1999, Until Discontinu ed, Routine metoprolol 0 Yes 25mg Take 25 mg [...] mouth 3 ity of tablet 00:16: (three) [place] 46 times Medical daily. Branch erenumab-ao Yes [...] 3 ity of tablet 21:55: 00:00 (three) [place] 40 :00 times Medical daily. Branch butorphanol 2020- No 1mg 1 mg, IV U nivers (STADOL) 5-17 05-17 Push, ity of injection 1 21:41: 22:04 ONCE, 1 [place] mg 00 :00 dose, [facility] Medical 06/28/20 at Branch 1645, Routine [...] [place] 49 doses, Medical Starting Branch [facility] 06/28/20 at 1540, Until Discontinu ed, Routine, Anxiety butorphanol 0 2020- No 1mg 1 mg, IV U nivers (STADOL) 5-17 05-17 Push, ity of injection 1 15:35: 20:07 ONCE, 1 [place] mg 00 :00 dose, [facility] 06/28/20 at Branch 1045, Routine proMETHazin 0 Yes 25mg 25 mg, IV U nivers e 5-17 Piggyback, ity of (PHENERGAN) 13:15: Q6HPRN, [place] 25 mg in 38 Starting Medical NaCl 0.9% [facility] (NS) 50 mL 06/28/20 at IV 0815, piggyback Until Discontinu ed, Routine, Nausea and Vomiting (N/V) hydrOXYzine Yes 10mg 10 mg, Univ ers (ATARAX) 5-17 Oral, ity of tablet 10 06:58: Q6HPRN, [place] mg 54 Starting Medical [facility] 06/28/20 at 0158, Until Discontinu ed, Routine, Anxiety melatonin 0 Yes 3mg 3 mg, Univers (MELATIN) 5-17 Oral, QHS, ity of tablet 3 mg 02:00: First dose [place] 00 on [facility] 06/27/20 at Branch 2100, Until Discontinu ed, Routine butalbital- 0 Yes 1{tbl} 1 tablet, Univers acetaminoph 5-17 Oral, ity of en-caff 01:06: Q6HPRN, [place] (ESGIC) 14 Starting Medical 50-325-40 Sun Branch mg tablet 1 06/27/20 at tablet 2006, Until Discontinu ed, Routine, headache NaCl 0.9% 0 202- No 250mL at 999 Univ ers (NS) bolus 5-17 05-17 mL/hr, 250 it y of infusion 00:30: 00:30 mL, IV [place] 250 mL 00 :00 Piggyback, Medical ONCE, 1 Branch dose, 06/27/20 at 1930, STAT gabapentin 2020-0 Yes 600mg Take 1 Univ ers 600 mg 5-17 tablet by ity of tablet 00:00: mouth 3 [place] 00 (three) Medical times [place] daily. cyclobenzap 0 Yes 5mg Take 1 [...] Branch Anxiety or Agitation (insomnia) . ubrogepant 202-0 Yes 50mg Take 50 mg U nivers [...] (three) Medical times Branch daily. LORazepam 1 1-0 Yes 1mg Take 1 Univ ers mg [...] for Other Medical (Headache) Branch . proMETHazin 2020- Yes 12.5mg Take 0.5 Univers e 25 [...] Branch Anxiety or Agitation (insomnia) . gabapentin 1-0 Yes 600mg Take 1 Univ [...] Branch Anxiety or Agitation (insomnia) . gabapentin 1-0 Yes 600mg Take 1 Univ [...] (three) Medical times Branch daily. LORazepam 1 1-0 Yes 1mg Take 1 Univ ers mg tablet 5-17 tablet by ity o f 00:00: mouth at 00 bedtime as Medical needed for Branch Anxiety or Agitation (insomnia) . gabapentin 2021-0 Yes 600mg Take 1 Univ [...] needed for Nausea and Vomiting (N/V). proMETHazin 2020-0 2022- No 12.5mg Take 0.5 Univers e 25 mg 5-17 01-01 tablets by ity o f tablet 00:00: 00:00 mouth [place] 00 :00 every 6 Medical (six) Branch hours as needed for Nausea and Vomiting (N/V). proMETHazin 2020-0 2022- No 12.5mg Take 0.5 Univers e 25 mg 5-17 01-01 tablets by ity o f tablet 00:00: 00:00 mouth [place] 00 :00 every 6 Medical (six) Branch hours as needed for Nausea and Vomiting (N/V). proMETHazin 2020-0 2022- No 12.5mg Take 0.5 Univers e 25 mg 5-17 - tablets by ity o f tablet 00:00: 00:00 mouth [place] 00 :00 every 6 Medical (six) Branch hours as needed for Nausea and Vomiting (N/V). proMETHazin 2020-0 2022- No 12.5mg Take 0.5 Univers e 25 mg 5-17 01-01 tablets by ity o f tablet 00:00: 00:00 mouth [place] 00 :00 every 6 Medical (six) Branch hours as needed for Nausea and Vomiting (N/V). proMETHazin 2020-0 2022- No 12.5mg Take 0.5 Univers e 25 mg 5-17 - tablets by ity o f tablet 00:00: 00:00 mouth [place] 00 :00 every 6 Medical (six) Branch hours as needed for Nausea and Vomiting (N/V). proMETHazin 2020-0 2022- No 12.5mg Take 0.5 Univers e 25 mg 5-17 -01 tablets by ity o f tablet 00:00: 00:00 mouth [place] 00 :00 every 6 Medical (six) Branch hours as needed for Nausea and Vomiting (N/V). cyclobenzap 2020-2020- No 5mg Take 1 Uni vers rine 5 mg 5-17 10-24 tablet by ity of tablet 00:00: 00:00 mouth 3 [place] 00 :00 (three) Medical times Branch daily. ubrogepant 2022020- No 50mg Take 50 mg Univers (UBRELVY) 5-17 10-24 by mouth ity o f 50 mg Tab 00:00: 00:00 as needed [place] 00 :00 for Other Medical (Headache) Branch . cyclobenzap 2020-2020- No 5mg Take 1 Uni vers rine 5 mg 5-17 10-24 tablet by ity of tablet 00:00: 00:00 mouth 3 [place] 00 :00 (three) Medical times Branch daily. ubrogepant 2020-2020- No 50mg Take 50 mg Univers (UBRELVY) 5-17 10-24 by mouth ity o f 50 mg Tab 00:00: 00:00 as needed [place] 00 :00 for Other Medical (Headache) Branch . cyclobenzap 2020-2020- No 5mg Take 1 Uni vers rine 5 mg 5-17 10-24 tablet by ity of tablet 00:00: 00:00 mouth 3 [place] 00 :00 (three) Medical times Branch daily. ubrogepant 2020- No 50mg Take 50 mg Univers (UBRELVY) 5-17 10-24 by mouth ity o f 50 mg Tab 00:00: 00:00 as needed [place] 00 :00 for Other Medical (Headache) Branch . cyclobenzap 2020- No 5mg Take 1 Uni vers rine 5 mg 5-17 10-24 tablet by ity of tablet 00:00: 00:00 mouth 3 [place] 00 :00 (three) Medical times Branch daily. ubrogepant 2020-2020- No 50mg Take 50 mg Univers (UBRELVY) [...] 0815, Routine, Nausea and Vomiting (N/V) cyclobenzap 2021-0 Yes 5mg 5 mg, Unive rs rine 5-16 Oral, TID, ity of (FLEXERIL) 16:00: First dose [place] tablet 5 mg 00 on [facility] 06/27/20 at Branch 1100, Until Discontinu ed, Routine ibuprofen Yes 600mg 600 mg, Univ ers (IBU) 5-16 Oral, ity of tablet 600 15:49: Q6HPRN, [place] mg 19 Starting Medical [facility] 06/27/20 at 1049, Until Discontinu ed, Routine, Pain (scale 4-6) pantoprazol Yes 40mg 40 mg, Univ ers e 5-16 Oral, ity of (PROTONIX) 14:00: DAILY, [place] EC tablet 00 First dose Medi bernadine 40 mg on [facility] 06/27/20 at 0900, Until Discontinu ed, Routine losartan Yes 50mg 50 mg, Univers (COZAAR) 5-16 Oral, ity of tablet 50 14:00: DAILY, [place] mg 00 First dose Medical on [facility] 06/27/20 at 0900, Until Discontinu ed, Routine metoprolol Yes 25mg 25 mg, Unive rs succinate 5-16 Oral, ity of XL (TOPROL 14:00: DAILY, [place] XL) tablet 00 First dose Med ical 25 mg on [facility] 06/27/20 at 0900, Until Discontinu ed azaTHIOprin Yes 150mg 150 mg, Un matt e (IMURAN) 5-16 Oral, ity of tablet 150 14:00: DAILY, [place] mg 00 First dose Medical on [facility] 06/27/20 at 0900, Until Discontinu ed, Routine heparin Yes 5000U 5,000 Univers (porcine) 5-16 Units, ity of injection 13:00: Subcutaneo [place] 5,000 Units 00 us, Q12H, Med ical First dose Branch on [facility] 06/27/20 at 0800, Until Discontinu ed, Routine dicyclomine Yes 20mg 20 mg, Univ ers (BENTYL) 5-16 Oral, TID, ity o f tablet 20 13:00: First dose [place] mg 00 on [facility] 06/27/20 at Branch 0800, Until Discontinu ed, Routine gabapentin 2020- No 400mg 400 mg, Un matt (NEURONTIN) 06-27 Oral, TID, i ty of capsule 400 13:00: 20:40 First dose [place] mg 00 :15 on [facility] 06/27/20 at Branch 0800, Until Discontinu ed, Routine morpHINE 2020- No 2mg 2 mg, Slow Un matt injection 2 06-27 IV Push, ity of mg 10:00: 09:07 ONCE, 1 [place] 00 :00 dose, [facility] 06/27/20 at Branch 0500, GIGI LORazepam 2020- No 2mg 2 mg, Univer s (ATIVAN) 06-27 Oral, ity of tablet 2 mg 06:00: 08:58 ONCE, 1 [place] 00 :00 dose, [facility] 06/27/20 at Branch 0100, Routine gabapentin 2020- No 600mg 600 mg, Un matt (NEURONTIN) 06-27 Oral, ity of tablet 600 05:00: 04:03 ONCE, 1 [place] mg 00 :00 dose, [facility] 06/27/20 at Branch 0000, GIGI magnesium 2020- No 2g 2 g, IV Univ ers sulfate in 06-27 Piggyback, it y of water 2 04:15: 06:10 ONCE, 1 [place] gram/50 mL 00 :00 dose, Sat Medi bernadine (4 %) 06/26/20 at [place] infusion 2 2315, GIGI g valproate 2020- No 500mg 500 mg, IV Univers (DEPACON) 06-27 Piggyback, ity of 500 mg in 04:15: 04:54 ONCE, 1 [place] D5W 00 :00 dose, Sat Medical piggyback 06/26/20 at [facility] ch 2315, 100 mL LORazepam 2020- No 1mg 1 mg, Univer s (ATIVAN) 06-27 Oral, QHS, ity of tablet 1 mg 04:00: 01:27 2 doses, [place] 00 :00 First dose Medical (after Branch last modificati on) on [facility] 06/26/20 at 2300, Last dose on [place] 06/27/20 at 2100, Routine proMETHazin 2020- No [...] 06/26/20 at piggyback 2014, 50 mL morpHINE 2021-0 2021- No 4mg 4 mg, Slow Un matt injection 4 06-27 IV Push, ity of mg 01:15: 00:18 ONCE, 1 [place] 00 :00 dose, Sat Medical 06/26/20 at Branch 2015, STAT iopamidol 2020- No [id number] 100mL 100 mL, Univers (ISOVUE 06-26 Intravenou ity o f 370-500 mL) 23:15: 22:07 s, ONCE, 1 injection 00 :00 dose, Sat Medic al [...] ty of en-caff 22:15: 21:26 NOW, 1 [place] (ESGIC) 00 :00 dose, Sat Medical 50-325-40 06/26/20 at Bran ch mg tablet 1 1714, GIGI tablet nitroglycer 2020- No .4mg 0.4 mg, Un matt in 06-26 Sublingual ity of (NITROSTAT) 22:15: 21:26 , ONCE, 1 [place] sublingual 00 :00 dose, Sat Medi bernadine tablet 0.4 06/26/20 at Bra nch mg 1714, GIGI magnesium 2020- No 2g 2 g, IV Univ ers sulfate in 06-26 Piggyback, it y of water 2 22:15: 23:46 ONCE, 1 [place] gram/50 mL 00 :00 dose, Sat Medi bernadine (4 %) 06/26/20 at Branch infusion 2 1715, g Routine dexamethaso 2020- No 10mg 10 mg, IV Univers ne 06-26 Push, ity of (DECADRON 22:15: 21:25 ONCE, 1 [place] PHOSPHATE) 00 :00 dose, Sat Medi bernadine injection 06/26/20 at Bran ch 10 mg 1715, STAT diphenhydrA 2020- No 25mg 25 mg, Uni vers MINE 06-26-15 Slow IV ity of (BENADRYL) 21:30: 20:31 [...] No 30mg 30 mg, Unive rs (TORADOL) 06-26- Slow IV ity of injection 21:30: 20:31 [...] 325mg 325 mg, Unive rs tablet 325 06-26-15 Oral, ity of mg 20:15: 20:30 ONCE, [...] mouth 3 ity of tablet 16:54: (three) [place] 47 times Medical daily. Branch ondansetron Yes 4mg Take 4 mg U nivers (ZOFRAN 4-21 by mouth ity of ODT) 4 mg 16:54: every 8 [place] disintegrat 47 (eight) Medic al ing tablet hours as Branc h needed. busPIRone Yes 15mg Take 15 mg Un matt 15 mg 4-21 by mouth 3 ity of tablet 16:54: (three) [place] 47 times Medical daily. Branch erenumab-ao Yes [...] at Branch 2315, Routine pantoprazol 2020- No [id number] 40mg Take 1 Univers e 40 mg EC -07-03 tablet by ity of tablet 00:00: 04:59 mouth [place] 00 :00 daily for Medical 30 days. Branch pantoprazol 2020- No [id number] 40mg Take 1 Univers e 40 mg EC 4-21 05-22 tablet by ity of tablet 00:00: 04:59 mouth [place] 00 :00 daily for Medical 30 days. Branch pantoprazol 2020- No [id number] 40mg Take 1 Univers e 40 mg [...] Indication s: acute pain proMETHazin 2020- No [id number] 25mg Take 1 Univers e 25 mg [...] First dose [place] mg 00 on [facility] 06/01/20 at Branch 1415, Until Discontinu ed, Routine HYDROcodone Yes 1{tbl} 1 tablet, Univers -acetaminop 4-20 Oral, ity of hen (NORCO) 19:00: Q6HPRN, [place] 10-325 mg 48 Starting Medica l tablet 1 [facility] tablet 06/01/20 at 1400, Until Discontinu ed, Routine, Pain (scale 4-6) cefpodoxime 2020- No Take by Un matt proxetil -20 -20 mouth. ity of (VANTIN 18:00: 00:00 [place] ORAL) 17 :00 Medical Branch proMETHazin Yes 25mg 25 mg, Univ ers e 4-20 Oral, ity of (PHENERGAN) 15:20: Q4HPRN, [place] tablet 25 12 Starting Medica l mg [facility] 06/01/20 at 1020, Until Discontinu ed, Routine, Nausea and Vomiting (N/V) acetaminoph 2020- No 1{tbl} 1 tablet, Univers en-codeine 06-01 04-20 Oral, ity of (TYLENOL 15:18: 19:01 Q4HPRN, [place] #3) 300-30 42 :49 Starting Medic al mg tablet 1 [facility] tablet 06/01/20 at 1018, Until [facility] 06/01/20 at 1401, Routine, Pain (scale 4-6) pantoprazol Yes 40mg 40 mg, Univ ers e 4-20 Oral, ity of (PROTONIX) 14:30: DAILY, [place] EC tablet 00 First dose Medi bernadine 40 mg on [facility] Branch 06/01/20 at 0930, Until Discontinu ed, Routine azaTHIOprin Yes 150mg 150 mg, Un matt e (IMURAN) 4-20 Oral, ity of tablet 150 14:30: DAILY, [place] mg 00 First dose Medical (after Branch last modificati on) on [facility] 06/01/20 at 0930, Until Discontinu ed, Routine morpHINE Yes 2mg 2 mg, Slow Uni vers injection 2 -20 IV Push, ity of mg 08:26: Q4HPRN, [place] 30 Starting Medical [facility] 06/01/20 at 0326, Until Discontinu ed, Routine, Pain (scale 7-10) morpHINE 2020- No 2mg 2 mg, Slow Un matt injection 2 -20 04-20 IV Push, ity of mg 06:00: 05:01 ONCE, 1 [place] 00 :00 dose, [facility] Medical 06/01/20 at Branch 0100, Routine amoxicillin 2020- No [id number] 1{tbl} Take 1 Univers -clavulanat 06-01-28 tablet by it y of e 00:00: 04:59 mouth 2 [place] (AUGMENTIN) 00 :00 (two) Medical 875-125 mg times Branch per tablet daily for 7 days. proMETHazin 2020- No 25mg 25 mg, IV Univers e 05-31 04-20 Piggyback, ity of (PHENERGAN) 22:18: 15:20 Q6HPRN, [place] 25 mg in 42 :48 Starting Medical NaCl 0.9% [facility] [place] (NS) 50 mL 05/31/20 at IV 1718, piggyback Until 06/01/20 at 1020, Routine, Nausea and Vomiting (N/V) acetaminoph 0 Yes 650mg 650 mg, Un matt en 05-31 Oral, ity of (TYLENOL) 15:33: Q6HPRN, [place] tablet 650 00 Starting Medic al mg [facility] [place] 05/31/20 at 1033, Until Discontinu ed, Routine, Temp > 38.5 C butalbital- 0 Yes 1{tbl} 1 tablet, Univers acetaminoph 05-31 Oral, ity of en-caff 15:27: Q6HPRN, [place] (ESGIC) 07 Starting Medical 50-325-40 [facility] mg tablet 1 05/31/20 at tablet [...] Oral, ity of XL (TOPROL 14:00: DAILY, [place] XL) tablet 00 First dose Med ical 25 mg (after Branch last modificati on) on Sun05/31/20 at 0900, Until Discontinu ed enoxaparin 0 Yes 40mg 40 mg, Unive rs (LOVENOX) 05-31 Subcutaneo ity of injection 14:00: us, DAILY, [place] 40 mg 00 First dose Medical on [facility] 05/31/20 at 0900, Until Discontinu ed, Routine azaTHIOprin 2020- No 50mg 50 mg, Uni vers e (IMURAN) 05-31-20 Oral, ity of tablet 50 14:00: 14:19 DAILY, [place] mg 00 :13 First dose Medical on [facility] 05/31/20 at 0900, Until Discontinu ed, Routine gabapentin 0 Yes 400mg 400 mg, Uni vers (NEURONTIN) 05-31 Oral, TID, it y of 400 mg 13:00: First dose [place] 00 on [facility] 05/31/20 at Branch 0800, Until Discontinu ed, Routine dicyclomine Yes 20mg 20 mg, Univ ers (BENTYL) 05-31 Oral, TID, ity o f tablet 20 13:00: First dose [place] mg 00 on [facility] 05/31/20 at Branch 0800, Until Discontinu ed, Routine busPIRone Yes 15mg 15 mg, Univer s (BUSPAR) 05-31 Oral, TID, ity o f tablet 15 13:00: First dose [place] mg 00 on [facility] 05/31/20 at Branch 0800, Until Discontinu ed, Routine temazepam No 15mg 15 mg, Unive rs (RESTORIL) 05-31 Oral, ity of capsule 15 06:30: 05:28 ONCE, 1 [place] mg 00 :00 dose, [facility] 05/31/20 at Branch 0130, Routine proMETHazin No 25mg 25 mg, Uni vers e 05-31 Oral, ity of (PHENERGAN) 05:29: 22:06 Q6HPRN, [place] tablet 25 16 :24 Starting Medica l mg [facility] 05/31/20 at 0029, Until [facility] 05/31/20 at 1706, Routine, Nausea and [...] First dose [place] mg 00 :25 on [facility] 05/30/20 at Branch 2000, Until Discontinu ed, Routine piperacilli No 3.375g 3.375 g, Univers n-tazobacta 05-30 IV ity of m (ZOSYN) 22:45: 22:40 Piggyback, [place] 3.375 g in 00 :00 ONCE, 1 Medica l NaCl 0.9% [facility] 05/30/20 at MINI-BAG 1745, 100 mL
Reas on for Anti-Infec tive: Documented Infection< br>Documen karly Infection Site: Urine
D uration of Therapy: Other (see Comments) FENTanyl PF No 75ug 75 mcg, Un matt (SUBLIMAZE 05-30 Slow IV ity o f (PF)) 22:45: 21:55 Push, [place] injection 00 :00 ONCE, 1 Medical 75 mcg dose, [facility] 05/30/20 at 1745, STAT proMETHazin No 25mg 25 mg, IV Univers e 05-30 Piggyback, ity of (PHENERGAN) 22:45: 22:45 ONCE, 1 [place] 25 mg in 00 :00 dose, [facility] Medica l NaCl 0.9% 05/30/20 at [facility] ch (NS) 50 mL 1745, 50 piggyback mL NaCl 0.9% 2020- No 1000mL at 100 Uni vers (NS) IV 05-30 04-20 mL/hr, IV ity of infusion 22:30: 19:01 Infusion, [place] 1,000 mL 00 :49 CONTINUOUS Medic al , Starting Branch [facility] 05/30/20 at 1730, Until 06/01/20 at 1401, Routine ondansetron Yes 4mg 4 mg, Slow Univers (ZOFRAN 05-30 IV Push, ity of (PF)) 22:23: Q6HPRN, [place] injection 4 13 Starting Medi bernadine mg [facility] 05/30/20 at 1723, Until Discontinu ed, Routine, Nausea and Vomiting (N/V) morpHINE 2020- No 4mg 4 mg, Slow Un matt injection 4 05-30 IV Push, ity of mg 22:23: 22:22 Q4HPRN, [place] 07 :07 Starting Medical [facility] 05/30/20 at 1723, Until 05/31/20 at 1722, Routine, Pain (scale 7-10) HYDROcodone 2020- No 1{tbl} 1 tablet, Univers -acetaminop 05-30 Oral, ity of hen (NORCO 22:23: 15:19 Q6HPRN, [place] 5) 5-325 mg 02 :39 Starting Medi bernadine tablet 1 [place] tablet 05/30/20 at 1723, Until 06/01/20 at 1019, Routine, Pain (scale 4-6) acetaminoph 2020- No 650mg 650 mg, U nivers en 05-30 Oral, ity of (TYLENOL) 22:22: 15:33 Q6HPRN, [place] tablet 650 55 :25 Starting Medic al mg [facility] 05/30/20 at 1722, Until 05/31/20 at 1033, Routine, Pain (scale 1-3), Temp > 38.5 C oxybutynin Yes 5mg 5 mg, Univer s chloride 05-30 Oral, ity of (DITROPAN) 22:21: TIDPRN, [place] tablet 5 mg 36 Starting Medi bernadine [facility] 05/30/20 at 1721, Until Discontinu ed, Routine, Bladder spasms iohexol 2020- No [id number] 100mL 100 mL, Univers (OMNIPAQUE 05-30 Intravenou it y of 350 21:00: 20:40 s, ONCE, 1 [place] BULK-100 00 :00 dose, [facility] Medica l mL) 05/30/20 at Branch injection 1600, 100 mL Routine FENTanyl PF 2020- No 50ug 50 mcg, Un matt (SUBLIMAZE 05-30 Slow IV ity o f (PF)) 21:00: 20:35 Push, [place] injection 00 :00 ONCE, 1 Medical 50 mcg dose, [facility] Branch 05/30/20 at 1600, Routine ondansetron 2020- No 4mg 4 mg, Slow Univers (ZOFRAN 05-30 IV Push, ity of (PF)) 21:00: 20:22 ONCE, 1 [place] injection 4 00 :00 dose, [facility] ical mg 05/30/20 at Branch 1600, GIGI proMETHazin 2020- No 25mg 25 mg, IV Univers e 05-27 Piggyback, ity of (PHENERGAN) 02:45: 01:47 ONCE, 1 [place] 25 mg in 00 :00 dose, [facility] Medica l NaCl 0.9% 05/26/20 at Bran ch (NS) 50 mL 2145, 50 piggyback mL butorphanol 2020- No 2mg 2 mg, IV U nivers (STADOL) 05-27 Push, ity of injection 2 02:45: 01:33 ONCE, 1 [place] mg 00 :00 dose, [facility] 05/26/20 at Branch 2145, Routine ONDANSETRON 2020- No Take by Un matt HCL (ZOFRAN 05-27 mouth. ity o f ORAL) 01:43: 00:00 [place] 58 :00 [facility] dicyclomine 2020- No 10mg Take 10 mg Univers 10 mg 05-27 by mouth. ity of capsule 01:43: 00:00 [place] 58 :00 [facility] butorphanol 2020- No 1mg 1 mg, IV U nivers (STADOL) 05-27 Push, ity of injection 1 01:30: 00:38 ONCE, 1 [place] mg 00 :00 dose, [facility] 05/26/20 at Branch 2030, Routine NaCl 0.9% 2020- No 1000mL at 999 Uni vers (NS) bolus 05-26-15 mL/hr, ity of infusion 23:30: 01:49 1,000 mL, [place] 1,000 mL 00 :00 IV Medical Infusion, [place] ONCE, 1 dose, [facility] 05/26/20 at 1830, GIGI oxybutynin Yes [id number] 5mg Take 1 U nivers chloride 5 05-26 tablet by ity of mg tablet 00:00: mouth 3 [place] 00 (three) Medical times Branch daily as needed for Bladder spasms. oxybutynin 1-0 Yes [id number] 5mg Take 1 U nivers chloride 5 4-14 tablet by ity of mg tablet 00:00: mouth (three) Medical times Branch daily as needed for Bladder spasms. oxybutynin 1-0 Yes [id number] 5mg Take 1 U nivers chloride 5 4-14 tablet by ity of mg tablet 00:00: mouth (three) Medical times Branch daily as needed for Bladder spasms. oxybutynin 1-0 Yes [id number] 5mg Take 1 U nivers chloride 5 4-14 tablet by ity of mg tablet 00:00: mouth (three) Medical times Branch daily as needed for Bladder spasms. oxybutynin 1-0 Yes [id number] 5mg Take 1 U nivers chloride 5 4-14 tablet by ity of mg tablet 00:00: mouth (three) Medical times Branch daily as needed for Bladder spasms. oxybutynin 1-0 Yes [id number] 5mg Take 1 U nivers chloride 5 4-14 tablet by ity of mg tablet 00:00: mouth (three) Medical times Branch daily as needed for Bladder spasms. oxybutynin 1-0 Yes [id number] 5mg Take 1 U nivers chloride 5 4-14 tablet by ity of mg tablet 00:00: mouth (three) Medical times Branch daily as needed for Bladder spasms. oxybutynin 1-0 Yes [id number] 5mg Take 1 U nivers chloride 5 4-14 tablet by ity of mg tablet 00:00: mouth (three) Medical times Branch daily as needed for Bladder spasms. oxybutynin 1-0 Yes [id number] 5mg Take 1 U nivers chloride 5 4-14 tablet by ity of mg tablet 00:00: mouth (three) Medical times Branch daily as needed for Bladder spasms. oxybutynin 2021-0 Yes [id number] 5mg Take 1 U nivers chloride 5 4-14 tablet by ity of mg tablet 00:00: mouth (three) Medical times Branch daily as needed for Bladder spasms. oxybutynin 1-0 Yes [id number] 5mg Take 1 U nivers chloride 5 4-14 tablet by ity of mg tablet 00:00: mouth (three) Medical times Branch daily as needed for Bladder spasms. oxybutynin 1-0 Yes [id number] 5mg Take 1 U nivers chloride 5 4-14 tablet by ity of mg tablet 00:00: mouth (three) Medical times Branch daily as needed for Bladder spasms. oxybutynin 2020-0 Yes [id number] 5mg Take 1 U nivers chloride 5 4-14 tablet by ity of mg tablet 00:00: mouth (three) Medical times Branch daily as needed for Bladder spasms. oxybutynin 1-0 Yes [id number] 5mg Take 1 U nivers chloride 5 4-14 tablet by ity of mg tablet 00:00: mouth (three) Medical times Branch daily as needed for Bladder spasms. oxybutynin 2020-0 Yes [id number] 5mg Take 1 U nivers chloride 5 4-14 tablet by ity of mg tablet 00:00: mouth (three) Medical times Branch daily as needed for Bladder spasms. oxybutynin 2020-0 Yes [id number] 5mg Take 1 [facility] chloride 5 4-14 tablet by ity of mg tablet 00:00: mouth (three) Medical times Branch daily as needed for Bladder spasms. oxybutynin 1-0 Yes [id number] 5mg Take 1 [facility] n[facility] chloride 5 4-14 tablet by ity of mg tablet 00:00: mouth (three) Medical times Branch daily as needed for Bladder spasms. oxybutynin 1-0 Yes [id number] 5mg Take 1 U nivers chloride 5 4-14 tablet by ity of mg tablet 00:00: mouth (three) Medical times Branch daily as needed for Bladder spasms. oxybutynin 1-0 Yes [id number] 5mg Take 1 U nivers chloride 5 4-14 tablet by ity of mg tablet 00:00: mouth 3 (three) Medical times Branch daily as needed for Bladder spasms. oxybutynin 1-0 Yes [id number] 5mg Take 1 U nivers chloride 5 4-14 tablet by ity of mg tablet 00:00: mouth (three) Medical times Branch daily as needed for Bladder spasms. oxybutynin 2020-0 Yes [id number] 5mg Take 1 U nivers chloride 5 4-14 tablet by ity of mg tablet 00:00: mouth (three) Medical times Branch daily as needed for Bladder spasms. oxybutynin 2020-0 Yes [id number] 5mg Take 1 U nivers chloride 5 4-14 tablet by ity of mg tablet 00:00: mouth (three) Medical times Branch daily as needed for Bladder spasms. oxybutynin 2020-0 Yes [id number] 5mg Take 1 U nivers chloride 5 4-14 tablet by ity of mg tablet 00:00: mouth (three) Medical times Branch daily as needed for Bladder spasms. oxybutynin 2020-0 Yes [id number] 5mg Take 1 U nivers chloride 5 4-14 tablet by ity of mg tablet 00:00: mouth (three) Medical times Branch daily as needed for Bladder spasms. oxybutynin 2020-0 Yes [id number] 5mg Take 1 U nivers chloride 5 4-14 tablet by ity of mg tablet 00:00: mouth (three) Medical times Branch daily as needed for Bladder spasms. oxybutynin 2020-0 Yes [id number] 5mg Take 1 U nivers chloride 5 4-14 tablet by ity of mg tablet 00:00: mouth (three) Medical times Branch daily as needed for Bladder spasms. phenazopyri 2020-0 Yes [id number] 200mg Take 1 [facility] dine 200 mg 4-14 tablet by ity of tablet 00:00: mouth (three) Medical times Branch daily. proMETHazin 2020-0 Yes [id number] 25mg Take 1 [facility] e 25 mg 4-14 tablet by ity of tablet 00:00: mouth 00 every 6 Medical (six) Branch hours as needed for Nausea and Vomiting (N/V). oxybutynin 2020-0 2021- No [id number] 5mg Take 1 [facility] chloride 5 4-14 10-24 tablet by ity of mg tablet 00:00: 00:[place] 3 [place] (three) Medical times Branch daily as needed for Bladder spasms. oxybutynin 2020- No [id number] 5mg Take 1 [facility] chloride 5 4-14 -24 tablet by ity of mg tablet 00:00: 00:00 mouth [place] :[place] (three) Medical times Branch daily as needed for Bladder spasms. oxybutynin 2020- No [id number] 5mg Take 1 [facility] chloride 5 4-14 -24 tablet by ity of mg tablet 00:00: 00:00 mouth 3 [place] :[place] (three) Medical times Branch daily as needed for Bladder spasms. oxybutynin 2020- No [id number] 5mg Take 1 [facility] chloride 5 4-14 10-24 tablet by ity of mg tablet 00:00: 00:00 mouth 3 [place] 00 :[place] (three) Medical times Branch daily as needed for Bladder spasms. proMETHazin 2020- No [id number] 25mg Take 1 [facility] e 25 mg 05-26- tablet by ity of tablet 00:00: 00:00 mouth [place] 00 :00 every 6 Medical (six) Branch hours as needed for Nausea and Vomiting (N/V). phenazopyri 2020- No [id number] 200mg Take 1 [facility] dine 200 mg 05-26-20 tablet by it y of tablet 00:00: 00:00 mouth 3 [place] 00 :00 (three) Medical times Branch daily. FENTanyl PF 2020- No 50ug 50 mcg, Un matt (SUBLIMAZE 05-13 Slow IV ity o f (PF)) 21:30: 20:45 Push, [place] injection 00 :00 ONCE, 1 Medical 50 mcg dose, [facility] 05/13/20 at 1630, Routine cefTRIAXone 2020- No 1000mg 1,000 mg, Univers (ROCEPHIN) 05-13 IV ity of 1,000 mg in 21:30: 21:22 Piggyback, [place] NaCl 0.9% 00 :00 ONCE, 1 Medical [...] IV ity of (REGLAN) 19:15: 19:04 Push, [place] injection 00 :00 ONCE, 1 Medical 10 mg dose, [facility] 05/13/20 at 1415, GIGI FENTanyl PF No 50ug 50 mcg, [...] at Branch 1245, GIGI iohexol 2020- No [id number] 120mL 120 mL, Univers (OMNIPAQUE 05-13 Intravenou it y of 350 17:30: 17:22 s, ONCE, 1 [place] BULK-150 00 :00 dose, [facility] Medica l mL) 05/13/20 at Branch injection 1230, 120 mL Routine NaCl 0.9% 2020- No 1000mL at 999 Uni vers (NS) bolus 4-01 04-01 mL/hr, ity of infusion 16:45: 20:00 1,000 mL, [place] as 1,000 mL 00 :00 IV Medical Infusion, Branch ONCE, 1 dose, [facility] 05/13/20 at 1145, GIGI proMETHazin 2020-0 Yes [id number] 25mg Take 1 [facility] e 25 mg 4-01 tablet by ity of tablet 00:00: mouth [place] 00 every 6 Medical (six) Branch hours as needed for Nausea and Vomiting (N/V). proMETHazin 2020-0 Yes [id number] 25mg Take 1 [facility] e 25 mg 4-01 tablet by ity of tablet 00:00: mouth [place] 00 every 6 Medical (six) Branch hours as needed for Nausea and Vomiting (N/V). proMETHazin 0 2020- No [id number] 25mg Take 1 [facility] e 25 mg - 04-14 tablet by ity of tablet 00:00: 00:00 mouth [place] 00 :00 every 6 Medical (six) Branch hours as needed for Nausea and Vomiting (N/V). cefpodoxime 2020- No [id number] 100mg Take 1 [facility] 100 mg 05-13 [...] No 140mg inject 140 [facility] oe (AIMOVIG 04-19 08-31 mg under ity of AUTOINJECTO 00:00: [...] XL 15:51: [place] ORAL) Medical Branch gabapentin 2020- Yes [id number] 400mg Take 1 [facility] 400 mg 2-09 capsule by ity of capsule 00:00: mouth 3 (three) Medical times Branch daily. gabapentin 2020-0 Yes [id number] 400mg Take 1 [facility] 400 mg 2-09 capsule by ity of capsule 00:00: mouth 3 (three) Medical times Branch daily. gabapentin 2020-0 Yes [id number] 400mg Take 1 [facility] 400 mg 2-09 capsule by ity of capsule 00:00: mouth 3 (three) Medical times Branch daily. gabapentin 2020- Yes [id number] 400mg Take 1 [facility] 400 mg 2-09 capsule by ity of capsule 00:00: mouth 3 [place] 00 (three) Medical times Branch daily. gabapentin 2021-0 Yes [id number] 400mg Take 1 [facility] 400 mg 2-09 capsule by ity of capsule 00:00: mouth 3 [place] 00 (three) Medical times Branch daily. gabapentin 2021-0 Yes [id number] 400mg Take 1 [facility] 400 mg 2-09 capsule by ity of capsule 00:00: mouth 3 [place] (three) Medical times Branch daily. gabapentin 2020-0 Yes [id number] 400mg Take 1 [facility] 400 mg 2-09 capsule by ity of capsule 00:00: mouth 3 [place] 00 (three) Medical times Branch daily. gabapentin 2020-0 Yes [id number] 400mg Take 1 [facility] 400 mg 2-09 capsule by ity of capsule 00:00: mouth 3 [place] (three) Medical times Branch daily. gabapentin 2020-0 Yes [id number] 400mg Take 1 [facility] 400 mg 2-09 capsule by ity of capsule 00:00: mouth [place] (three) Medical times Branch daily. gabapentin 2020-0 Yes [id number] 400mg Take 1 [facility] 400 mg 2-09 capsule by ity of capsule 00:00: mouth 3 [place] (three) Medical times Branch daily. gabapentin 2020-0 2021- No [id number] 400mg Take 1 [facility] 400 mg 2-09 05-17 capsule by ity of capsule 00:00: 00:00 mouth 3 [place] 00 :00 (three) Medical times Branch daily. gabapentin 2020-0 Yes 300mg Take 1 Univ ers 300 mg 2-04 capsule by ity of capsule 00:00: mouth 3 [place] (three) Medical times Branch daily. gabapentin 202-0 2021- No 300mg Take 1 Uni vers 300 mg 2-04 -09 capsule by ity of capsule 00:00: 00:00 mouth 3 [place] 00 :00 (three) Medical times Branch daily. gabapentin 2021-0 2021- No 300mg Take 1 Uni vers 300 mg 2-04 -09 capsule by ity of capsule 00:00: 00:00 mouth 3 [place] 00 :00 (three) Medical times Branch daily. FENTanyl PF 2019- 2020- No 50ug 50 mcg, Un matt (SUBLIMAZE 0-26 10-27 Slow IV ity o f (PF)) 20:00: 07:59 Push, [place] injection 00 :00 ONCE, 1 Medical 50 mcg dose, [facility] Branch 12/08/19 at 1500, STAT proMETHazin 2019-02 2020- No 12.5mg 12.5 mg, Univers e 012-07 IV ity of (PHENERGAN) 18:45: 17:52 Piggyback, [place] 12.5 mg in 00 :00 ONCE, 1 Medica l NaCl 0.9% dose, [facility] Branc h (NS) 50 mL 12/08/19 piggyback at 1345, 50 mL metoclopram 2019-02- No 10mg 10 mg, Uni vers marilyn HCl 012-07 Slow IV ity of (REGLAN) 17:45: 17:07 Push, [place] injection 00 :00 ONCE, 1 Medical 10 mg dose, [facility] Branch 12/08/19 at 1245, GIGI FENTanyl PF 2019-02- No 50ug 50 mcg, Un matt (SUBLIMAZE 12-07 Slow IV ity o f (PF)) 17:45: 17:07 Push, [place] injection 00 :00 ONCE, 1 Medical 50 mcg dose, [facility] Branch 12/08/19 at 1245, STAT GABAPENTIN 2019-02 Yes TAKE 1 Unive rs 300 mg 0-26 CAPSULE BY ity of capsule 00:00: MOUTH [place] 00 THREE Medical TIMES A Branch DAY GABAPENTIN 2019-02 Yes TAKE 1 Unive rs 300 mg 0-26 CAPSULE BY ity of capsule 00:00: MOUTH [place] 00 THREE Medical TIMES A Branch DAY proMETHazin 2019-02 Yes [id number] 25mg Take 1 Univers e 25 mg 0-26 tablet by ity of tablet 00:00: mouth [place] 00 every 6 Medical (six) Branch hours as needed for Nausea and Vomiting (N/V). GABAPENTIN 2019-02 Yes TAKE 1 Unive rs 300 mg 0-26 CAPSULE BY ity of capsule 00:00: MOUTH [place] 00 THREE Medical TIMES A Branch DAY proMETHazin 2019-02 Yes [id number] 25mg Take 1 Univers e 25 mg 0-26 tablet by ity of tablet 00:00: mouth [place] 00 every 6 Medical (six) Branch hours as needed for Nausea and Vomiting (N/V). GABAPENTIN 2019-02 Yes TAKE 1 Unive rs 300 mg 0-26 CAPSULE BY ity of capsule 00:00: MOUTH [place] 00 THREE Medical TIMES A Branch DAY proMETHazin 2019-02 Yes [id number] 25mg Take 1 Univers e 25 mg 0-26 tablet by ity of tablet 00:00: mouth [place] 00 every 6 Medical (six) Branch hours as needed for Nausea and Vomiting (N/V). proMETHazin 2019-02 Yes [id number] 25mg Take 1 Univers e 25 mg 0-26 tablet by ity of tablet 00:00: mouth [place] 00 every 6 Medical (six) Branch hours as needed for Nausea and Vomiting (N/V). proMETHazin 2019-02 Yes [id number] 25mg Take 1 Univers e 25 mg 0-26 tablet by ity of tablet 00:00: mouth [place] 00 every 6 Medical (six) Branch hours as needed for Nausea and Vomiting (N/V). proMETHazin 2019-02 Yes [id number] 25mg Take 1 Univers e 25 mg 0-26 tablet by ity of tablet 00:00: mouth [place] 00 every 6 Medical (six) Branch hours as needed for Nausea and Vomiting (N/V). proMETHazin 2019-02 Yes [id number] 25mg Take 1 Univers e 25 mg 0-26 tablet by ity of tablet 00:00: mouth [place] 00 every 6 Medical (six) Branch hours as needed for Nausea and Vomiting (N/V). proMETHazin 2019-02 Yes [id number] 25mg Take 1 Univers e 25 mg 0-26 tablet by ity of tablet 00:00: mouth [place] 00 every 6 Medical (six) Branch hours as needed for Nausea and Vomiting (N/V). proMETHazin 2019-02 Yes [id number] 25mg Take 1 Univers e 25 mg 0-26 tablet by ity of tablet 00:00: mouth [place] 00 every 6 Medical (six) Branch hours as needed for Nausea and Vomiting (N/V). proMETHazin 2019-02 Yes [id number] 25mg Take 1 Univers e 25 mg 0-26 tablet by ity of tablet 00:00: mouth [place] 00 every 6 Medical (six) Branch hours as needed for Nausea and Vomiting (N/V). proMETHazin 2019-02- No [id number] 25mg Take 1 Univers e 25 mg 0-26 04-01 tablet by ity of tablet 00:00: 00:00 mouth [place] 00 :00 every 6 Medical (six) Branch hours as needed for Nausea and Vomiting (N/V). GABAPENTIN 2019-02- No TAKE 1 Univ ers 300 mg 0-09 04- CAPSULE BY ity of capsule 00:00: 00:00 [...] s mg tablet 0-23 ity of 00:00: [place] [facility] busPIRone 5 2020-1 Yes Univer s mg tablet 0-23 ity of 00:00: [place] [facility] busPIRone 5 2020-1 Yes Univer s mg tablet 0-23 ity of 00:00: [place] [facility] busPIRone 5 2020-1 Yes Univer s mg tablet 0-23 ity of 00:00: [place] [facility] busPIRone 5 2020-1 Yes Univer s mg tablet 0-23 ity of 00:00: [place] [facility] busPIRone 5 2020- Yes Univer s mg tablet 0-23 ity of 00:00: [place] [facility] busPIRone 5 2020-1 Yes Univer s mg tablet 0-23 ity of 00:00: [place] [facility] busPIRone 5 2019-2020- No Unive rs mg tablet 0-23 -18 ity of 00:00: 00:00 [place] 00 :00 Medical Branch losartan 50 2020-0 Yes 50mg Take 50 mg Univers mg tablet 9-21 by mouth ity of 00:00: daily. [place] [facility] losartan 50 2020-0 Yes 50mg Take 50 mg Univers mg tablet 9-21 by mouth ity of 00:00: daily. [place] [facility] losartan 50 2020-0 Yes 50mg Take 50 mg Univers mg tablet 9-21 by mouth ity of 00:00: daily. [place] [facility] losartan 50 2020-0 Yes 50mg Take 50 mg Univers mg tablet 9-21 by mouth ity of 00:00: daily. [place] [facility] losartan 50 2020-0 Yes 50mg Take 50 mg Univers mg tablet 9-21 by mouth ity of 00:00: daily. [place] [facility] losartan 50 2020-0 Yes 50mg Take 50 mg Univers mg tablet 9-21 by mouth ity of 00:00: daily. [place] [facility] losartan 50 2020-0 Yes 50mg Take 50 mg Univers mg tablet 9-21 by mouth ity of 00:00: daily. [place] [facility] losartan 50 2020-0 Yes 50mg Take 50 mg Univers mg tablet 9-21 by mouth ity of 00:00: daily. [place] [facility] losartan 50 2020-0 Yes 50mg Take 50 mg Univers mg tablet 9-21 by mouth ity of 00:00: daily. [place] [facility] Branch losartan 50 2020-0 Yes 50mg Take 50 mg Univers mg tablet 9-21 by mouth ity of 00:00: daily. [place] [facility] Branch losartan 50 2020-0 Yes 50mg Take 50 mg Univers mg tablet 9-21 by mouth ity of 00:00: daily. [place] [facility] losartan 50 2020-0 Yes 50mg Take 50 mg Univers mg tablet 9-21 by mouth ity of 00:00: daily. [place] [facility] Branch losartan 50 2020-0 Yes 50mg Take 50 mg Univers mg tablet 9-21 by mouth ity of 00:00: daily. [place] [facility] Branch losartan 50 2020-0 Yes 50mg Take 50 mg Univers mg tablet 9-21 by mouth ity of 00:00: daily. [place] [facility] losartan 50 2020-0 Yes 50mg Take 50 mg Univers mg tablet 9-21 by mouth ity of 00:00: daily. [place] [facility] losartan 50 2020-0 Yes 50mg Take 50 mg Univers mg tablet 9-21 by mouth ity of 00:00: daily. [place] [facility] losartan 50 2020-0 Yes 50mg Take 50 mg Univers mg tablet 9-21 by mouth ity of 00:00: daily. [place] [facility] losartan 50 2020-0 Yes 50mg Take 50 mg Univers mg tablet 9-21 by mouth ity of 00:00: daily. [place] [facility] losartan 50 2020-0 Yes 50mg Take 50 mg Univers mg tablet 9-21 by mouth ity of 00:00: daily. [place] [facility] losartan 50 2020-0 Yes 50mg Take 50 mg Univers mg tablet 9-21 by mouth ity of 00:00: daily. [place] [facility] losartan 50 2020-0 Yes 50mg Take 50 mg Univers mg tablet 9-21 by mouth ity of 00:00: daily. [place] [facility] losartan 50 2020-0 Yes 50mg Take 50 mg Univers mg tablet 9-21 by mouth ity of 00:00: daily. [place] [facility] losartan 50 2020-0 Yes 50mg Take 50 mg Univers mg tablet 9-21 by mouth ity of 00:00: daily. [place] [facility] losartan 50 2020-0 Yes 50mg Take 50 mg Univers mg tablet 9-21 by mouth ity of 00:00: daily. [place] [facility] losartan 50 2020-0 Yes 50mg Take 50 mg Univers mg tablet 9-21 by mouth ity of 00:00: daily. [place] [facility] losartan 50 2020-0 Yes 50mg Take 50 mg [facility] mg tablet 9-21 by mouth ity of 00:00: daily. [place] [facility] losartan 50 2020-0 Yes 50mg Take 50 mg [facility] mg tablet 9-21 by mouth ity of 00:00: daily. [place] [facility] losartan 50 2020-0 Yes 50mg Take 50 mg [facility] mg tablet 9-21 by mouth ity of 00:00: daily. [place] [facility] losartan 50 2020-0 Yes 50mg Take 50 mg [facility] mg tablet 9-21 by mouth ity of 00:00: daily. [place] [facility] losartan 50 2020-0 Yes 50mg Take 50 mg [facility] mg tablet 9-21 by mouth ity of 00:00: daily. [place] [facility] losartan 50 2020-0 Yes 50mg Take 50 mg [facility] mg tablet 9-21 by mouth ity of 00:00: daily. [place] [facility] losartan 50 2020-0 Yes 50mg Take 50 mg Univers mg tablet 9-21 by mouth ity of 00:00: daily. [place] [facility] losartan 50 2020-0 Yes 50mg Take 50 mg Univers mg tablet 9-21 by mouth ity of 00:00: daily. [place] [facility] losartan 50 2020-0 Yes 50mg Take 50 mg Univers mg tablet 9-21 by mouth ity of 00:00: daily. [place] [facility] losartan 50 2020-0 Yes 50mg Take 50 mg [facility] mg tablet 9-21 by mouth ity of 00:00: daily. [place] [facility] losartan 50 2020-0 Yes 50mg Take 50 mg Univers mg tablet 9-21 by mouth ity of 00:00: daily. [place] [facility] losartan 50 2020-0 Yes 50mg Take 50 mg Univers mg tablet 9-21 by mouth ity of 00:00: daily. [place] [facility] losartan 50 2020-0 Yes 50mg Take 50 mg Univers mg tablet 9-21 by mouth ity of 00:00: daily. [place] [facility] losartan 50 2020-0 1- No 100mg Take 100 Univers mg tablet 9-21 10-31 mg by ity of 00:00: 00:00 mouth [place] 00 :00 daily. Medical Branch losartan 50 2020-0 202- No 100mg Take 100 Univers mg tablet 9-21 10-31 mg by ity of 00:00: 00:00 mouth [place] 00 :00 daily. Medical Branch losartan 50 2019-0 2020- No 100mg Take 100 Univers mg tablet 9-21 10-31 mg by ity of 00:00: 00:00 mouth [place] 00 :00 daily. Medical Branch losartan 50 2019-0 2020- No 100mg Take 100 Univers mg [...] ONCE EVERY Medical MONTH. Branch AIMOVIG 2019-0 2020- No INJECT 140 Uni vers AUTOINJECTO [...] every Medical mg/mL AtIn month. Branch erenumab-ao 2019-0 2020- No 140mg inject 140 Univers oe [...] Medical times Branch daily. divalproex 2020-0 Yes [id number] 250mg Take 1 [facility] 250 mg EC 3-05 tablet by ity o f tablet 00:00: mouth [place] 00 every 12 Medical (twelve) Branch hours. divalproex 2020-0 Yes [id number] 250mg Take 1 [facility] 250 mg EC 3-05 tablet by ity o f tablet 00:00: mouth [place] 00 every 12 Medical (twelve) Branch hours. divalproex 2020-0 Yes [id number] 250mg Take 1 [facility] 250 mg EC 3-05 tablet by ity o f tablet 00:00: mouth [place] 00 every 12 Medical (twelve) Branch hours. divalproex 2020-0 Yes [id number] 250mg Take 1 [facility] 250 mg EC 3-05 tablet by ity o f tablet 00:00: mouth [place] 00 every 12 Medical (twelve) Branch hours. divalproex 2020-0 Yes [id number] 250mg Take 1 [facility] 250 mg EC 3-05 tablet by ity o f tablet 00:00: mouth [place] 00 every 12 Medical (twelve) Branch hours. divalproex 2020-0 Yes [id number] 250mg Take 1 [facility] 250 mg EC 2-28 tablet by ity o f tablet 00:00: mouth [place] 00 every 12 Medical (twelve) Branch hours. divalproex 2020-0 2020- No [id number] 250mg Take 1 [facility] 250 mg EC 2-28 03-05 tablet by ity of tablet 00:00: 00:00 mouth [place] 00 :00 every 12 Medical (twelve) Branch hours. divalproex 2020-0 2020- No [id number] 250mg Take 1 [facility] 250 mg EC 2-28 03-05 tablet by ity of tablet 00:00: 00:00 mouth [place] 00 :00 every 12 Medical (twelve) Branch hours. divalproex 2020-0 2020- No [id number] 250mg Take 1 [facility] 250 mg EC 2-28 03-05 tablet by ity of tablet 00:00: 00:00 mouth [place] 00 :00 every 12 Medical (twelve) Branch hours. divalproex 2020-0 2020- No [id number] 250mg Take 1 [facility] 250 mg EC 2-28 03-05 tablet by ity of tablet 00:00: 00:00 mouth [place] 00 :00 every 12 Medical (twelve) Branch hours. pregabalin 2020-0 2020- No 75mg Take 75 mg Univers (LYRICA) 50 2-14 02-14 by mouth 2 i ty of mg capsule 16:39: 00:00 (two) [place] 16 :00 times Medical daily. Branch pregabalin 2019-0 2020- No 75mg Take 75 mg Univers (LYRICA) 50 2-14 02-14 by mouth 2 i ty of mg capsule 16:39: 00:00 (two) [place] 16 :00 times Medical daily. Branch divalproex 2020-0 Yes [id number] 125mg Take 1 [facility] 125 mg EC 2-14 tablet by ity o f tablet 00:00: mouth [place] 00 every 12 Medical (twelve) Branch hours. divalproex 2020-0 Yes [id number] 125mg Take 1 [facility] 125 mg EC 2-14 tablet by ity o f tablet 00:00: mouth [place] 00 every 12 Medical (twelve) Branch hours. divalproex 2020-0 Yes [id number] 125mg Take 1 [facility] 125 mg EC 2-14 tablet by ity o f tablet 00:00: mouth [place] 00 every 12 Medical (twelve) Branch hours. divalproex 2020-0 Yes [id number] 125mg Take 1 [facility] 125 mg EC 2-14 tablet by ity o f tablet 00:00: mouth [place] 00 every 12 Medical (twelve) Branch hours. divalproex 2020-0 2020- No [id number] 125mg Take 1 Univers 125 mg EC [...] 2-09 by mouth. ity of capsule 15:24: [address] dicyclomine 2018-02 Yes 10mg Take 10 mg Univers 10 mg 2-09 by mouth. ity of capsule 15:24: [address] dicyclomine 2018-02 Yes 10mg Take 10 mg Univers 10 mg 2-09 by mouth. ity of capsule 15:24: [address] dicyclomine 2018-02 Yes 10mg Take 10 mg Univers 10 mg 2-09 by mouth. ity of capsule 15:24: [address] dicyclomine 2018-02 Yes 10mg Take 10 mg Univers 10 mg 2-09 by mouth. ity of capsule 15:24: [address] dicyclomine 2018-02 Yes 10mg Take 10 mg Univers 10 mg 2-09 by mouth. ity of capsule 15:24: [address] dicyclomine 2018-02 Yes 10mg Take 10 mg Univers 10 mg 2-09 by mouth. ity of capsule 15:24: [address] dicyclomine 2018-02 Yes 10mg Take 10 mg Univers 10 mg 2-09 by mouth. ity of capsule 15:24: [address] dicyclomine 2018-02 Yes 10mg Take 10 mg Univers 10 mg 2-09 by mouth. ity of capsule 15:24: [address] dicyclomine 2018-02 Yes 10mg Take 10 mg Univers 10 mg 2-09 by mouth. ity of capsule 15:24: [address] dicyclomine 2018-02 Yes 10mg Take 10 mg Univers 10 mg 2-09 by mouth. ity of capsule 15:24: [address] dicyclomine 2018-02 Yes 10mg Take 10 mg Univers 10 mg 2-09 by mouth. ity of capsule 15:24: [address] dicyclomine 2018-02 Yes 10mg Take 10 mg Univers 10 mg 2-09 by mouth. ity of capsule 15:24: [address] dicyclomine 2018-02 Yes 10mg Take 10 mg Univers 10 mg 2-09 by mouth. ity of capsule 15:24: [address] dicyclomine 2018-02 Yes 10mg Take 10 mg Univers 10 mg 2-09 by mouth. ity of capsule 15:24: [address] dicyclomine 2018-02 Yes 10mg Take 10 mg Univers 10 mg 2-09 by mouth. ity of capsule 15:24: [address] dicyclomine 2018-02 Yes 10mg Take 10 mg Univers 10 mg 2-09 by mouth. ity of capsule 15:24: [address] dicyclomine 2018-02 Yes 10mg Take 10 mg Univers 10 mg 2-09 by mouth. ity of capsule 15:24: [address] dicyclomine 2018-02 Yes 10mg Take 10 mg Univers 10 mg 2-09 by mouth. ity of capsule 15:24: [address] dicyclomine 2018-02 Yes 10mg Take 10 mg [facility] 10 mg 2-09 by mouth. ity of capsule 15:24: [address] Yes 10mg Take 10 mg [facility] 10 mg 2-09 by mouth. ity of capsule 15:24: [address] dicyclomine 2018-02 Yes 10mg Take 10 mg Univers 10 mg 2-09 by mouth. ity of capsule 15:24: [address]-02 Yes 10mg Take 10 mg [facility] 10 mg 2-09 by mouth. ity of capsule 15:24: [address] 2018-02 Yes 10mg Take 10 mg [facility] 10 mg 2-09 by mouth. ity of capsule 15:24: [address] 2018-02 Yes 10mg Take 10 mg [facility] 10 mg 2-09 by mouth. ity of capsule 15:24: [address] dicyclomine 2018-02 Yes 10mg Take 10 mg Univers 10 mg 2-09 by mouth. ity of capsule 15:24: [address] dicyclomine 2018-02 Yes 10mg Take 10 mg [facility] 10 mg 2-09 by mouth. ity of capsule 15:24: [address] dicyclomine 2018-02 Yes 10mg Take 10 mg [facility] 10 mg 2-09 by mouth. ity of capsule 15:24: [address] dicyclomine 2018-02 Yes 10mg Take 10 mg Univers 10 mg 2-09 by mouth. ity of capsule 15:24: [address] dicyclomine 2018-02 Yes 10mg Take 10 mg Univers 10 mg 2-09 by mouth. ity of capsule 15:24: [address] dicyclomine 2018- Yes 10mg Take 10 mg Univers 10 mg 2-09 by mouth. ity of capsule 15:24: [address] ONDANSETRON 2018-02 Yes Take by Uni vers HCL (ZOFRAN 2-09 mouth. ity of ORAL) 15:22: [address] 2018-02 Yes Take by Uni vers HCL (ZOFRAN 2-09 mouth. ity of ORAL) 15:22: [address] ONDANSETRON 2018-02 Yes Take by Uni vers HCL (ZOFRAN 2-09 mouth. ity of ORAL) 15:22: [address] 2018-02 Yes Take by Uni vers HCL (ZOFRAN 2-09 mouth. ity of ORAL) 15:22: [address] 2018-02 Yes Take by Uni vers HCL (ZOFRAN 2-09 mouth. ity of ORAL) 15:22: [address] 2018-02 Yes Take by Uni vers HCL (ZOFRAN 2-09 mouth. ity of ORAL) 15:22: [address] 2018-02 Yes Take by Uni vers HCL (ZOFRAN 2-09 mouth. ity of ORAL) 15:22: [address] 2018-02 Yes Take by Uni vers HCL (ZOFRAN 2-09 mouth. ity of ORAL) 15:22: [address] ONDANSETRON 2018-02 Yes Take by Uni vers HCL (ZOFRAN 2-09 mouth. ity of ORAL) 15:22: [address] 2018-02 Yes Take by Uni vers HCL (ZOFRAN 2-09 mouth. ity of ORAL) 15:22: [address] ONDANSETRON 2018-02 Yes Take by Uni vers HCL (ZOFRAN 2-09 mouth. ity of ORAL) 15:22: [address] ONDANSETRON 2018-02 Yes Take by Uni vers HCL (ZOFRAN 2-09 mouth. ity of ORAL) 15:22: [address] 2018-02 Yes Take by Uni vers HCL (ZOFRAN 2-09 mouth. ity of ORAL) 15:22: [address] 2018-02 Yes Take by Uni vers HCL (ZOFRAN 2-09 mouth. ity of ORAL) 15:22: [address] ONDANSETRON 2018-02 Yes Take by [facility] (ZOFRAN 2-09 mouth. ity of ORAL) 15:22: [address] ONDANSETRON 2018-02 Yes Take by [facility] (ZOFRAN 2-09 mouth. ity of ORAL) 15:22: [address] ONDANSETRON 2018-02 Yes Take by [facility] (ZOFRAN 2-09 mouth. ity of ORAL) 15:22: [address] ONDANSETRON 2018-02 Yes Take by [facility] (ZOFRAN 2-09 mouth. ity of ORAL) 15:22: [address] Yes Take by [facility] (ZOFRAN 2-09 mouth. ity of ORAL) 15:22: [address]-02 Yes Take by [facility] (ZOFRAN 2-09 mouth. ity of ORAL) 15:22: [address]-02 Yes Take by [facility] (ZOFRAN 2-09 mouth. ity of ORAL) 15:22: [address]-02 Yes Take by [facility] (ZOFRAN 2-09 mouth. ity of ORAL) 15:22: [address]-02 Yes Take by [facility] (ZOFRAN 2-09 mouth. ity of ORAL) 15:22: [address] ONDANSETRON 2018-02 Yes Take by [facility] (ZOFRAN 2-09 mouth. ity of ORAL) 15:22: [address]-02 Yes Take by [facility] (ZOFRAN 2-09 mouth. ity of ORAL) 15:22: [address]-02 Yes Take by [facility] (ZOFRAN 2-09 mouth. ity of ORAL) 15:22: [address]-02 Yes Take by [facility] vers [...] mouth [place] 00 daily. [facility] Branch azaTHIOprin 1 Yes 150mg Take 150 U nivers e 50 mg 2-02 mg by ity of tablet 00:00: mouth [place] daily. Medical Branch azaTHIOprin 2019-1 Yes 150mg Take 150 U nivers e 50 mg 2-02 mg by ity of tablet 00:00: mouth [place] daily. Medical Branch azaTHIOprin 2019-1 Yes Univer s e 50 mg 2-02 ity of tablet 00:00: [place] 00 Medical Branch azaTHIOprin 2019-1 Yes Univer s e 50 mg 2-02 ity of tablet 00:00: [place] [facility] azaTHIOprin 2019-1 Yes Univer s e 50 mg 2-02 ity of tablet 00:00: [place] [address] Medical Branch azaTHIOprin 2019-1 Yes Univer s e 50 mg 2-02 ity of tablet 00:00: [place] [address] Medical Branch azaTHIOprin 2019-1 Yes Univer s e 50 mg 2-02 ity of tablet 00:00: [place] [address] Medical Branch azaTHIOprin 2019-1 Yes Univer s e 50 mg 2-02 ity of tablet 00:00: [place] [address] Medical Branch azaTHIOprin 2019-1 Yes Univer s e 50 mg 2-02 ity of tablet 00:00: [place] [address] Medical Branch azaTHIOprin 2019-1 Yes Univer s e 50 mg 2-02 ity of tablet 00:00: [place] [address] Medical Branch azaTHIOprin 2019-1 Yes Univer s e 50 mg 2-02 ity of tablet 00:00: [place] [address] Medical Branch azaTHIOprin 2019-1 Yes Univer s e 50 mg 2-02 ity of tablet 00:00: [place] [address] Medical Branch azaTHIOprin 2019-1 Yes Univer s e 50 mg 2-02 ity of tablet 00:00: [place] [address] Medical Branch azaTHIOprin 2019-1 Yes Univer s e 50 mg 2-02 ity of tablet 00:00: [place] [address] Medical Branch azaTHIOprin 2019-1 Yes Univer s e 50 mg 2-02 ity of tablet 00:00: [place] [address] Medical Branch azaTHIOprin 2019-1 Yes Univer s e 50 mg 2-02 ity of tablet 00:00: [place] [address] Medical Branch azaTHIOprin 2019-1 Yes Univer s e 50 mg 2-02 ity of tablet 00:00: [place] [address] Medical Branch azaTHIOprin 2019-1 Yes Univer s e 50 mg 2-02 ity of tablet 00:00: [place] [address] Medical Branch azaTHIOprin 2019-1 Yes Univer s e 50 mg 2-02 ity of tablet 00:00: [place] [address] Medical Branch azaTHIOprin 2019-1 Yes Univer s e 50 mg 2-02 ity of tablet 00:00: [place] [address] Medical Branch azaTHIOprin 2019-1 Yes Univer s e 50 mg 2-02 ity of tablet 00:00: [place] [address] Medical Branch azaTHIOprin 2019-1 Yes Univer s e 50 mg 2-02 ity of tablet 00:00: [place] [address] Medical Branch azaTHIOprin 2019-1 Yes Univer s e 50 mg 2-02 ity of tablet 00:00: [place] [address] Medical Branch azaTHIOprin 2019-1 Yes Univer s e 50 mg 2-02 ity of tablet 00:00: [place] [address] Medical Branch azaTHIOprin 2019-1 Yes Univer s e 50 mg 2-02 ity of tablet 00:00: [place] [address] Medical Branch azaTHIOprin 2019-1 Yes Univer s e 50 mg 2-02 ity of tablet 00:00: [place] [address] Medical Branch azaTHIOprin 2019-1 Yes Univer s e 50 mg 2-02 ity of tablet 00:00: [place] [address] Medical Branch azaTHIOprin 2019-1 Yes Univer s e 50 mg 2-02 ity of tablet 00:00: [place] [address] Medical Branch azaTHIOprin 2019-1 Yes Univer s e 50 mg 2-02 ity of tablet 00:00: [place] [address] Medical Branch azaTHIOprin 2019-1 Yes Univer s e 50 mg 2-02 ity of tablet 00:00: [place] [address] Medical Branch azaTHIOprin 2019-1 Yes Univer s e 50 mg 2-02 ity of tablet 00:00: [place] [address] Medical Branch azaTHIOprin 2019-1 Yes Univer s e 50 mg 2-02 ity of tablet 00:00: [place] [address] Medical Branch azaTHIOprin 2019-1 Yes Univer s e 50 mg 2-02 ity of tablet 00:00: [place] [address] Medical Branch azaTHIOprin 2019-1 Yes Univer s e 50 mg 2-02 ity of tablet 00:00: [place] [address] Medical Branch azaTHIOprin 2019-1 Yes Univer s e 50 mg 2-02 ity of tablet 00:00: [place] [address] Medical Branch azaTHIOprin 2019-1 2021- No 150mg Take 150 Univers e 50 mg 2-02 10-24 mg by ity of tablet 00:00: 00:00 mouth [place] 00 :00 daily. Medical Branch azaTHIOprin 2018-02- No 150mg Take 150 Univers e 50 mg 2-02 10-24 mg by ity of tablet 00:00: 00:00 mouth [place] 00 :00 daily. Medical Branch azaTHIOprin 2018-02- No 150mg Take 150 Univers e 50 mg 2-02 10-24 mg by ity of tablet 00:00: 00:00 mouth [place] 00 :00 daily. Medical Branch azaTHIOprin 2018-02- No 150mg Take 150 Univers e 50 mg 2-02 10-24 mg by ity of tablet 00:00: 00:00 mouth [place] 00 :00 daily. Medical Branch ibuprofen 2018-02 Yes [id number] 600mg Take 1 [facility] 600 mg 1-13 tablet by ity of tablet 00:00: mouth [place] 00 every 6 Medical (six) Branch hours as needed for Pain (scale 4-6). ibuprofen 2018-02 Yes [id number] 600mg Take 1 [facility] 600 mg 1-13 tablet by ity of tablet 00:00: mouth [place] 00 every 6 Medical (six) Branch hours as needed for Pain (scale 4-6). ibuprofen 2018-02 Yes [id number] 600mg Take 1 [facility] 600 mg 1-13 tablet by ity of tablet 00:00: mouth [place] 00 every 6 Medical (six) Branch hours as needed for Pain (scale 4-6). ibuprofen 2018-02 Yes [id number] 600mg Take 1 [facility] 600 mg 1-13 tablet by ity of tablet 00:00: mouth [place] 00 every 6 Medical (six) Branch hours as needed for Pain (scale 4-6). ibuprofen 2018-02 Yes [id number] 600mg Take 1 [facility] 600 mg 1-13 tablet by ity of tablet 00:00: mouth [place] 00 every 6 Medical (six) Branch hours as needed for Pain (scale 4-6). ibuprofen 2018- Yes [id number] 600mg Take 1 [facility] 600 mg 1-13 tablet by ity of tablet 00:00: mouth [place] 00 every 6 Medical (six) Branch hours as needed for Pain (scale 4-6). ibuprofen 2018-02 Yes [id number] 600mg Take 1 [facility] 600 mg 1-13 tablet by ity of tablet 00:00: mouth [place] 00 every 6 Medical (six) Branch hours as needed for Pain (scale 4-6). ibuprofen 2018-02 Yes [id number] 600mg Take 1 [facility] 600 mg 1-13 tablet by ity of tablet 00:00: mouth [place] 00 every 6 Medical (six) Branch hours as needed for Pain (scale 4-6). ibuprofen 2018- Yes [id number] 600mg Take 1 [facility] 600 mg 1-13 tablet by ity of tablet 00:00: mouth [place] 00 every 6 Medical (six) Branch hours as needed for Pain (scale 4-6). ibuprofen 2018-02 Yes [id number] 600mg Take 1 [facility] 600 mg 1-13 tablet by ity of tablet 00:00: mouth [place] 00 every 6 Medical (six) Branch hours as needed for Pain (scale 4-6). ibuprofen 2018- Yes [id number] 600mg Take 1 [facility] 600 mg 1-13 tablet by ity of tablet 00:00: mouth [place] 00 every 6 Medical (six) Branch hours as needed for Pain (scale 4-6). ibuprofen 2018-02 Yes [id number] 600mg Take 1 [facility] 600 mg 1-13 tablet by ity of tablet 00:00: mouth [place] 00 every 6 Medical (six) Branch hours as needed for Pain (scale 4-6). ibuprofen 2018-02 Yes [id number] 600mg Take 1 [facility] 600 mg 1-13 tablet by ity of tablet 00:00: mouth [place] 00 every 6 Medical (six) Branch hours as needed for Pain (scale 4-6). ibuprofen 2018-02 Yes [id number] 600mg Take 1 [facility] 600 mg 1-13 tablet by ity of tablet 00:00: mouth [place] 00 every 6 Medical (six) Branch hours as needed for Pain (scale 4-6). ibuprofen 2018-02 Yes [id number] 600mg Take 1 [facility] 600 mg 1-13 tablet by ity of tablet 00:00: mouth [place] 00 every 6 Medical (six) Branch hours as needed for Pain (scale 4-6). ibuprofen 2018- Yes [id number] 600mg Take 1 [facility] 600 mg 1-13 tablet by ity of tablet 00:00: mouth [place] 00 every 6 Medical (six) Branch hours as needed for Pain (scale 4-6). ibuprofen 2018- Yes [id number] 600mg Take 1 [facility] 600 mg 1-13 tablet by ity of tablet 00:00: mouth [place] 00 every 6 Medical (six) Branch hours as needed for Pain (scale 4-6). ibuprofen 2018-02 Yes [id number] 600mg Take 1 [facility] 600 mg 1-13 tablet by ity of tablet 00:00: mouth [place] 00 every 6 Medical (six) Branch hours as needed for Pain (scale 4-6). ibuprofen 2018-02 Yes [id number] 600mg Take 1 [facility] 600 mg 1-13 tablet by ity of tablet 00:00: mouth [place] 00 every 6 Medical (six) Branch hours as needed for Pain (scale 4-6). ibuprofen 2018-02 Yes [id number] 600mg Take 1 [facility] 600 mg 1-13 tablet by ity of tablet 00:00: mouth [place] 00 every 6 Medical (six) Branch hours as needed for Pain (scale 4-6). ibuprofen 2018-02 Yes [id number] 600mg Take 1 [facility] 600 mg 1-13 tablet by ity of tablet 00:00: mouth [place] 00 every 6 Medical (six) Branch hours as needed for Pain (scale 4-6). ibuprofen 2018-02 Yes [id number] 600mg Take 1 [facility] 600 mg 1-13 tablet by ity of tablet 00:00: mouth [place] 00 every 6 Medical (six) Branch hours as needed for Pain (scale 4-6). ibuprofen 2018-02 Yes [id number] 600mg Take 1 [facility] 600 mg 1-13 tablet by ity of tablet 00:00: mouth [place] 00 every 6 Medical (six) Branch hours as needed for Pain (scale 4-6). ibuprofen 2018-02 Yes [id number] 600mg Take 1 [facility] 600 mg 1-13 tablet by ity of tablet 00:00: mouth [place] 00 every 6 Medical (six) Branch hours as needed for Pain (scale 4-6). ibuprofen 2018-02 Yes [id number] 600mg Take 1 [facility] 600 mg 1-13 tablet by ity of tablet 00:00: mouth [place] 00 every 6 Medical (six) Branch hours as needed for Pain (scale 4-6). ibuprofen 2018- Yes [id number] 600mg Take 1 [facility] 600 mg 1-13 tablet by ity of tablet 00:00: mouth [place] 00 every 6 Medical (six) Branch hours as needed for Pain (scale 4-6). ibuprofen 2018- Yes [id number] 600mg Take 1 [facility] 600 mg 1-13 tablet by ity of tablet 00:00: mouth [place] 00 every 6 Medical (six) Branch hours as needed for Pain (scale 4-6). ibuprofen 2018-02 Yes [id number] 600mg Take 1 [facility] 600 mg 1-13 tablet by ity of tablet 00:00: mouth [place] 00 every 6 Medical (six) Branch hours as needed for Pain (scale 4-6). ibuprofen 2018-02 Yes [id number] 600mg Take 1 [facility] 600 mg 1-13 tablet by ity of tablet 00:00: mouth [place] 00 every 6 Medical (six) Branch hours as needed for Pain (scale 4-6). ibuprofen 2018-02 Yes [id number] 600mg Take 1 [facility] 600 mg 1-13 tablet by ity of tablet 00:00: mouth [place] 00 every 6 Medical (six) Branch hours as needed for Pain (scale 4-6). ibuprofen 2018-02 Yes [id number] 600mg Take 1 [facility] 600 mg 1-13 tablet by ity of tablet 00:00: mouth [place] 00 every 6 Medical (six) Branch hours as needed for Pain (scale 4-6). ibuprofen 2018-02 Yes [id number] 600mg Take 1 [facility] 600 mg 1-13 tablet by ity of tablet 00:00: mouth [place] 00 every 6 Medical (six) Branch hours as needed for Pain (scale 4-6). ibuprofen 2018-02 Yes [id number] 600mg Take 1 [facility] 600 mg 1-13 tablet by ity of tablet 00:00: mouth [place] 00 every 6 Medical (six) Branch hours as needed for Pain (scale 4-6). ibuprofen 2018-02 Yes [id number] 600mg Take 1 [facility] 600 mg 1-13 tablet by ity of tablet 00:00: mouth [place] 00 every 6 Medical (six) Branch hours as needed for Pain (scale 4-6). ibuprofen 2018-02 Yes [id number] 600mg Take 1 [facility] 600 mg 1-13 tablet by ity of tablet 00:00: mouth [place] 00 every 6 Medical (six) Branch hours as needed for Pain (scale 4-6). ibuprofen 2018- Yes [id number] 600mg Take 1 [facility] 600 mg 1-13 tablet by ity of tablet 00:00: mouth [place] 00 every 6 Medical (six) Branch hours as needed for Pain (scale 4-6). ibuprofen 2018- Yes [id number] 600mg Take 1 [facility] 600 mg 1-13 tablet by ity of tablet 00:00: mouth [place] 00 every 6 Medical (six) Branch hours as needed for Pain (scale 4-6). ibuprofen 2018-02 Yes [id number] 600mg Take 1 [facility] 600 mg 1-13 tablet by ity of tablet 00:00: mouth [place] 00 every 6 Medical (six) Branch hours as needed for Pain (scale 4-6). ibuprofen 2018-02 Yes [id number] 600mg Take 1 [facility] 600 mg 1-13 tablet by ity of tablet 00:00: mouth [place] 00 every 6 Medical (six) Branch hours as needed for Pain (scale 4-6). ibuprofen 2018-02 Yes [id number] 600mg Take 1 [facility] 600 mg 1-13 tablet by ity of tablet 00:00: mouth [place] 00 every 6 Medical (six) Branch hours as needed for Pain (scale 4-6). ibuprofen 2018-02 Yes [id number] 600mg Take 1 [facility] 600 mg 1-13 tablet by ity of tablet 00:00: mouth [place] 00 every 6 Medical (six) Branch hours as needed for Pain (scale 4-6). ibuprofen 2018-02 Yes [id number] 600mg Take 1 [facility] 600 mg 1-13 tablet by ity of tablet 00:00: mouth [place] 00 every 6 Medical (six) Branch hours as needed for Pain (scale 4-6). ibuprofen 2018-02 Yes [id number] 600mg Take 1 [facility] 600 mg 1-13 tablet by ity of tablet 00:00: mouth [place] 00 every 6 Medical (six) Branch hours as needed for Pain (scale 4-6). ibuprofen 2018-02 Yes [id number] 600mg Take 1 [facility] 600 mg 1-13 tablet by ity of tablet 00:00: mouth [place] 00 every 6 Medical (six) Branch hours as needed for Pain (scale 4-6). ibuprofen 2018- Yes [id number] 600mg Take 1 [facility] 600 mg 1-13 tablet by ity of tablet 00:00: mouth [place] 00 every 6 Medical (six) Branch hours as needed for Pain (scale 4-6). ibuprofen 2018- Yes [id number] 600mg Take 1 [facility] 600 mg 1-13 tablet by ity of tablet 00:00: mouth [place] 00 every 6 Medical (six) Branch hours as needed for Pain (scale 4-6). ibuprofen 2018- Yes [id number] 600mg Take 1 [facility] 600 mg 1-13 tablet by ity of tablet 00:00: mouth [place] 00 every 6 Medical (six) Branch hours as needed for Pain (scale 4-6). ibuprofen 2018-02 Yes [id number] 600mg Take 1 [facility] 600 mg 1-13 tablet by ity of tablet 00:00: mouth [place] 00 every 6 Medical (six) Branch hours as needed for Pain (scale 4-6). ibuprofen 2018-02 Yes [id number] 600mg Take 1 [facility] 600 mg 1-13 tablet by ity of tablet 00:00: mouth [place] 00 every 6 Medical (six) Branch hours as needed for Pain (scale 4-6). ibuprofen 2018-02 Yes [id number] 600mg Take 1 [facility] 600 mg 1-13 tablet by ity of tablet 00:00: mouth [place] 00 every 6 Medical (six) Branch hours as needed for Pain (scale 4-6). ibuprofen 2018-02 Yes [id number] 600mg Take 1 [facility] 600 mg 1-13 tablet by ity of tablet 00:00: mouth [place] 00 every 6 Medical (six) Branch hours as needed for Pain (scale 4-6). ibuprofen 2018-02 Yes [id number] 600mg Take 1 [facility] 600 mg 1-13 tablet by ity of tablet 00:00: mouth [place] 00 every 6 Medical (six) Branch hours as needed for Pain (scale 4-6). ibuprofen 2018-02 Yes [id number] 600mg Take 1 [facility] 600 mg 1-13 tablet by ity of tablet 00:00: mouth [place] 00 every 6 Medical (six) Branch hours as needed for Pain (scale 4-6). ibuprofen 2018-02 Yes [id number] 600mg Take 1 [facility] 600 mg 1-13 tablet by ity of tablet 00:00: mouth [place] 00 every 6 Medical (six) Branch hours as needed for Pain (scale 4-6). ibuprofen 2018-02 Yes [id number] 600mg Take 1 [facility] 600 mg 1-13 tablet by ity of tablet 00:00: mouth [place] 00 every 6 Medical (six) Branch hours as needed for Pain (scale 4-6). ibuprofen 2018-02 Yes [id number] 600mg Take 1 [facility] 600 mg 1-13 tablet by ity of tablet 00:00: mouth [place] 00 every 6 Medical (six) Branch hours as needed for Pain (scale 4-6). ibuprofen 2018-02 Yes [id number] 600mg Take 1 [facility] 600 mg 1-13 tablet by ity of tablet 00:00: mouth [place] 00 every 6 Medical (six) Branch hours as needed for Pain (scale 4-6). ibuprofen 2018-02 Yes [id number] 600mg Take 1 [facility] 600 mg 1-13 tablet by ity of tablet 00:00: mouth [place] 00 every 6 Medical (six) Branch hours as needed for Pain (scale 4-6). ibuprofen 2018-02- No [id number] 600mg Take 1 [facility] 600 mg 1-13 10-24 tablet by ity of tablet 00:00: 00:00 mouth [place] 00 :00 every 6 Medical (six) Branch hours as needed for Pain (scale 4-6). ibuprofen 2018-02- No [id number] 600mg Take 1 [facility] 600 mg 1-13 10-24 tablet by ity of tablet 00:00: 00:00 mouth [place] 00 :00 every 6 Medical (six) Branch hours as needed for Pain (scale 4-6). ibuprofen 2018-02- No [id number] 600mg Take 1 [facility] 600 mg 1-13 10-24 tablet by ity of tablet 00:00: 00:00 mouth [place] 00 :00 every 6 Medical (six) Branch hours as needed for Pain (scale 4-6). ibuprofen 2018-02- No [id number] 600mg Take 1 [facility] 600 mg 1-13 10-24 tablet by ity of tablet 00:00: 00:00 mouth [place] 00 :00 every 6 Medical (six) Branch hours as needed for Pain (scale 4-6). cyclobenzap 2018-02- No [id number] 10mg Take 1 Univers rine 10 mg 1-13 02-14 tablet by ity of tablet 00:00: 00:00 mouth 3 [place] 00 :00 (three) Medical times Branch daily. cyclobenzap 2018-02- No [id number] 10mg Take 1 [facility] rine 10 mg 1-13 02-14 tablet by ity of tablet 00:00: 00:00 mouth 3 [place] 00 :00 (three) Medical times Branch daily. azaTHIOprin Yes 150mg QD Take [address] (IMURAN) 9-14 mg by [facility] 12:13: mouth Medical tablet 12 daily. Center dicyclomine 0 Yes 10mg Q.[id number] Take [address] [facility] (BENTYL) 10 9-14 [id number] by mouth 3 [facility] capsule 12:13: [...] 12 daily. Center dicyclomine 2019-0 Yes 10mg [id number] Take [address] [facility] (BENTYL) 10 9-14 [id number] by mouth 3 [facility] capsule 12:13: [...] St -acetaminop 9-14 tablet by [facility] (NORCO 12:13: mouth 2 Medi bernadine 7.5-325) [...] 12 daily. Center dicyclomine 2019-0 Yes 10mg Q.[id number] Take [address] [facility] (BENTYL) 10 9-14 [id number] by mouth 3 [facility] capsule 12:13: [...] St -acetaminop 9-14 tablet by [facility] (NORCO 12:13: mouth 2 Medi bernadine 7.5-325) [...] 12 daily. Center dicyclomine 2019-0 Yes 10mg Q.[id number] Take [address] [facility] (BENTYL) 10 9-14 [id number] by mouth 3 [facility] capsule 12:13: [...] St -acetaminop 9-14 tablet by [facility] (NORCO 12:13: mouth 2 Medi bernadine 7.5-325) [...] 12 daily. Center dicyclomine 2019-0 Yes 10mg [id number] Take [address] [facility] (BENTYL) 10 9-14 [id number] by mouth 3 [facility] capsule 12:13: [...] St -acetaminop 9-14 tablet by [facility] (NORCO 12:13: mouth 2 Medi bernadine 7.5-325) [...] [facility] 5 % patch 00:00: onto the Medi bernadine 00 skin daily Center Remove & [...] [facility] 5 % patch 00:00: onto the [place] [address] skin daily Center Remove & Discard patch [...] [facility] 5 % patch 00:00: onto the [place] [address] skin daily Center Remove & Discard patch [...] [facility] 5 % patch 00:00: onto the [place] [address] skin daily Center Remove & Discard patch [...] [facility] % patch 00:00: onto the [place] [address] skin daily Center Remove & Discard patch within 12 hours. May cut if necessary. LORazepam 2019-0 Yes .5mg Take [address] [facility] (ATIVAN) 9-14 tablet [facility] 0.5 MG 00:00: (0.5 mg Medical tablet 00 total) by Center mouth every night as needed for Anxiety. Max Daily Amount: 0.5 mg Bactrim DS Bactrim DS No [facility] 1 tablet [facility] 08-24 [facility] 00:00: 00:00 - [facility] 00 :00 [facility] Pyridium Pyridium 2017- No [facility] 1 tablet [facility] 08-24 [facility] 00:00: 00:00 meals - [facility] 00 :00 [facility] hydrOXYzine 2020- No TAKE 1 Uni [...] HOURS Branch NEEDED FOR ANXIETY sodium,pota Yes [id number] Please see [facility] 6-16 instructio ity of sulfates 00:00: [facility] (SUPREP 00 provided. Medical BOWEL PREP Branch KIT) 17.5-3.13-1 .6 gram SolR sodium,pota 2016 Yes [id number] Please see [facility] [place] 6-16 instructio ity of sulfates 00:00: [facility] (SUPREP 00 provided. Medical BOWEL PREP Branch KIT) 17.5-3.13-1 .6 gram SolR sodium,pota 2016 Yes [id number] Please see [facility] [place] 6-16 instructio ity of sulfates 00:00: [facility] (SUPREP 00 provided. Medical BOWEL PREP Branch KIT) 17.5-3.13-1 .6 gram SolR sodium,pota 2016- Yes [id number] Please see [facility] [place] 6-16 instructio ity of sulfates 00:00: [facility] (SUPREP 00 provided. Medical BOWEL PREP Branch KIT) 17.5-3.13-1 .6 gram SolR sodium,pota 2016 Yes [id number] Please see [facility] 6-16 instructio ity of sulfates 00:00: [facility] (SUPREP 00 provided. Medical BOWEL PREP Branch KIT) 17.5-3.13-1 .6 gram SolR sodium,pota 2016-0 Yes [id number] Please see [facility] 6-16 instructio ity of sulfates 00:00: [facility] (SUPREP 00 provided. Medical BOWEL PREP Branch KIT) 17.5-3.13-1 .6 gram SolR sodium,pota 2016-0 Yes [id number] Please see [facility] 6-16 instructio ity of sulfates 00:00: [facility] (SUPREP 00 provided. Medical BOWEL PREP Branch KIT) 17.5-3.13-1 .6 gram SolR sodium,pota 2016-0 Yes [id number] Please see [facility] 6-16 instructio ity of sulfates 00:00: [facility] (SUPREP 00 provided. Medical BOWEL PREP Branch KIT) 17.5-3.13-1 .6 gram SolR sodium,pota 2016-0 Yes [id number] Please see [facility] 6-16 instructio ity of sulfates 00:00: [facility] (SUPREP 00 provided. Medical BOWEL PREP Branch KIT) 17.5-3.13-1 .6 gram SolR sodium,pota 2016-0 Yes [id number] Please see [facility] 6-16 instructio ity of sulfates 00:00: [facility] (SUPREP 00 provided. Medical BOWEL PREP Branch KIT) 17.5-3.13-1 .6 gram SolR sodium,pota 2016-0 Yes [id number] Please see [facility] 6-16 instructio ity of sulfates 00:00: [facility] (SUPREP 00 provided. Medical BOWEL PREP Branch KIT) 17.5-3.13-1 .6 gram SolR sodium,pota 2016-0 Yes [id number] Please see [facility] 6-16 instructio ity of sulfates 00:00: [facility] (SUPREP 00 provided. Medical BOWEL PREP Branch KIT) 17.5-3.13-1 .6 gram SolR sodium,pota 2016-0 Yes [id number] Please see [facility] 6-16 instructio ity of sulfates 00:00: [facility] (SUPREP 00 provided. Medical BOWEL PREP Branch KIT) 17.5-3.13-1 .6 gram SolR sodium,pota 2016-0 Yes [id number] Please see [facility] 6-16 instructio ity of sulfates 00:00: ns [place] (SUPREP 00 provided. Medical BOWEL PREP Branch KIT) 17.5-3.13-1 .6 gram SolR sodium,pota 2016-0 Yes [id number] Please see [facility] 6-16 instructio ity of sulfates 00:00: ns [place] (SUPREP 00 provided. Medical BOWEL PREP Branch KIT) 17.5-3.13-1 .6 gram SolR sodium,pota 2016-0 Yes [id number] Please see [facility] 6-16 instructio ity of sulfates 00:00: ns [place] (SUPREP 00 provided. Medical BOWEL PREP Branch KIT) 17.5-3.13-1 .6 gram SolR sodium,pota 2016-0 Yes [id number] Please see [facility] 6-16 instructio ity of sulfates 00:00: [facility] (SUPREP 00 provided. Medical BOWEL PREP Branch KIT) 17.5-3.13-1 .6 gram SolR sodium,pota 2016-0 Yes [id number] Please see [facility] 6-16 instructio ity of sulfates 00:00: [facility] (SUPREP 00 provided. Medical BOWEL PREP Branch KIT) 17.5-3.13-1 .6 gram SolR sodium,pota 2016-0 Yes [id number] Please see [facility] 6-16 instructio ity of sulfates 00:00: [facility] (SUPREP 00 provided. Medical BOWEL PREP Branch KIT) 17.5-3.13-1 .6 gram SolR sodium,pota 2016-0 Yes [id number] Please see [facility] 6-16 instructio ity of sulfates 00:00: ns [place] (SUPREP 00 provided. Medical BOWEL PREP Branch KIT) 17.5-3.13-1 .6 gram SolR sodium,pota 2016-0 Yes [id number] Please see [facility] 6-16 instructio ity of sulfates 00:00: ns [place] (SUPREP 00 provided. Medical BOWEL PREP Branch KIT) 17.5-3.13-1 .6 gram SolR sodium,pota 2016-0 Yes [id number] Please see [facility] 6-16 instructio ity of sulfates 00:00: ns [place] (SUPREP 00 provided. Medical BOWEL PREP Branch KIT) 17.5-3.13-1 .6 gram SolR sodium,pota 2016-0 Yes [id number] Please see [facility] 6-16 instructio ity of sulfates 00:00: ns [place] (SUPREP 00 provided. Medical BOWEL PREP Branch KIT) 17.5-3.13-1 .6 gram SolR sodium,pota 2016-0 Yes [id number] Please see [facility] 6-16 instructio ity of sulfates 00:00: ns [place] (SUPREP 00 provided. Medical BOWEL PREP Branch KIT) 17.5-3.13-1 .6 gram SolR sodium,pota 2016-0 Yes [id number] Please see [facility] 6-16 instructio ity of sulfates 00:00: ns [place] (SUPREP 00 provided. Medical BOWEL PREP Branch KIT) 17.5-3.13-1 .6 gram SolR sodium,pota 2016-0 Yes [id number] Please see [facility] 6-16 instructio ity of sulfates 00:00: ns [place] (SUPREP 00 provided. Medical BOWEL PREP Branch KIT) 17.5-3.13-1 .6 gram SolR sodium,pota 2016-0 Yes [id number] Please see [facility] 6-16 instructio ity of sulfates 00:00: ns [place] (SUPREP 00 provided. Medical BOWEL PREP Branch KIT) 17.5-3.13-1 .6 gram SolR sodium,pota 2016-0 Yes [id number] Please see [facility] 616 instructio ity of sulfates 00:00: ns [place] (SUPREP 00 provided. Medical BOWEL PREP Branch KIT) 17.5-3.13-1 .6 gram SolR sodium,pota 2016-0 Yes [id number] Please see [facility] 6-16 instructio ity of sulfates 00:00: ns [place] (SUPREP 00 provided. Medical BOWEL PREP Branch KIT) 17.5-3.13-1 .6 gram SolR sodium,pota 2016-0 Yes [id number] Please see [facility] 6-16 instructio ity of sulfates 00:00: ns [place] (SUPREP 00 provided. Medical BOWEL PREP Branch KIT) 17.5-3.13-1 .6 gram SolR sodium,pota Yes [id number] Please see [facility] 6-16 instructio ity of sulfates 00:00: [facility] (SUPREP 00 provided. Medical BOWEL PREP Branch KIT) 17.5-3.13-1 .6 gram SolR sodium,pota Yes [id number] Please see [facility] 6-16 instructio ity of sulfates 00:00: [facility] (SUPREP 00 provided. Medical BOWEL PREP Branch KIT) 17.5-3.13-1 .6 gram SolR sodium,pota Yes [id number] Please see [facility] 6-16 instructio ity of sulfates 00:00: [facility] (SUPREP 00 provided. Medical BOWEL PREP Branch KIT) 17.5-3.13-1 .6 gram SolR sodium,pota 2021- No [id number] Please see [facility] 6-16 04-18 instructio ity of sulfates 00:00: 00:00 [facility] (SUPREP 00 :00 provided. Medical BOWEL [...] ity of mg tablet 00:00: [place] 00 [facility] ondansetron Yes Univer s (ZOFRAN) 4 5-18 ity of mg tablet 00:00: [place] [facility] ondansetron Yes Univer s (ZOFRAN) 4 5-18 [...] [place] 00 :00 Medical Branch LYRICA 75 2015-0 2020- No Univers mg capsule -18 03-28 ity of 00:00: 00:00 [place] 00 :00 Medical Branch LYRICA 75 2016-0 2020- No Univers mg capsule 5-18 - ity of 00:00: 00:00 [place] 00 :00 Medical Branch mesalamine 2016-0 Yes [...] daily. [place] hr capsule Medical Branch tamsulosin 2015-1 Yes .4mg Take 1 Cap U nivers (FLOMAX) 0-20 by mouth ity of 0.4 mg 24 00:00: daily. [facility] capsule [facility] Branch tamsulosin 2014-02 Yes .4mg Take 1 Cap U nivers (FLOMAX) 0-20 by mouth ity of 0.4 mg 24 00:00: daily. [facility] capsule [facility] tamsulosin 2014-02 Yes .4mg Take 1 Cap U nivers (FLOMAX) 0-20 by mouth ity of 0.4 mg 24 00:00: daily. [facility] capsule [facility] tamsulosin 2014-02 Yes .4mg Take 1 Cap U nivers (FLOMAX) 0-20 by mouth ity of 0.4 mg 24 00:00: daily. [facility] capsule [facility] tamsulosin 2014-02 Yes .4mg Take 1 Cap U nivers (FLOMAX) 0-20 by mouth ity of 0.4 mg 24 00:00: daily. [facility] capsule [facility] tamsulosin 2014-02 Yes .4mg Take 1 Cap U nivers (FLOMAX) 0-20 by mouth ity of 0.4 mg 24 00:00: daily. [facility] capsule [facility] tamsulosin 2014-02 Yes .4mg Take 1 Cap U nivers (FLOMAX) 0-20 by mouth ity of 0.4 mg 24 00:00: daily. [facility] capsule [facility] tamsulosin 2014-02 Yes .4mg Take 1 Cap U nivers (FLOMAX) 0-20 by mouth ity of 0.4 mg 24 00:00: daily. [facility] capsule [facility] tamsulosin 2014-02 Yes .4mg Take 1 Cap U nivers (FLOMAX) 0-20 by mouth ity of 0.4 mg 24 00:00: daily. [facility] capsule [facility] Branch tamsulosin 2014-02 Yes .4mg Take 1 Cap U nivers (FLOMAX) 0-20 by mouth ity of 0.4 mg 24 00:00: daily. [facility] capsule [facility] tamsulosin 2014-02 Yes .4mg Take 1 Cap U nivers (FLOMAX) 0-20 by mouth ity of 0.4 mg 24 00:00: daily. [facility] capsule [facility] tamsulosin 2014-02 Yes .4mg Take 1 Cap U nivers (FLOMAX) 0-20 by mouth ity of 0.4 mg 24 00:00: daily. [facility] capsule [facility] Branch tamsulosin 2014-02 Yes .4mg Take 1 Cap U nivers (FLOMAX) 0-20 by mouth ity of 0.4 mg 24 00:00: daily. [facility] capsule [facility] tamsulosin 2014-02 Yes .4mg Take 1 Cap U nivers (FLOMAX) 0-20 by mouth ity of 0.4 mg 24 00:00: daily. [facility] capsule [facility] tamsulosin 2014-02 Yes .4mg Take 1 Cap U nivers (FLOMAX) 0-20 by mouth ity of 0.4 mg 24 00:00: daily. [facility] capsule [facility] tamsulosin 2014-02 Yes .4mg Take 1 Cap U nivers (FLOMAX) 0-20 by mouth ity of 0.4 mg 24 00:00: daily. [facility] capsule [facility] tamsulosin 2014-02 Yes .4mg Take 1 Cap U nivers (FLOMAX) 0-20 by mouth ity of 0.4 mg 24 00:00: daily. [facility] capsule [facility] tamsulosin 2014-02 Yes .4mg Take 1 Cap U nivers (FLOMAX) 0-20 by mouth ity of 0.4 mg 24 00:00: daily. [facility] capsule [facility] tamsulosin 2014-02 Yes .4mg Take 1 Cap U nivers (FLOMAX) 0-20 by mouth ity of 0.4 mg 24 00:00: daily. [facility] capsule [facility] tamsulosin 2014-02 Yes .4mg Take 1 Cap U nivers (FLOMAX) 0-20 by mouth ity of 0.4 mg 24 00:00: daily. [facility] capsule [facility] Branch tamsulosin 2014-02 Yes .4mg Take 1 Cap U nivers (FLOMAX) 0-20 by mouth ity of 0.4 mg 24 00:00: daily. [facility] capsule [facility] Branch tamsulosin 2014-02 Yes .4mg Take 1 Cap U nivers (FLOMAX) 0-20 by mouth ity of 0.4 mg 24 00:00: daily. [facility] capsule [facility] tamsulosin 2014-02 Yes .4mg Take 1 Cap [...] daily. [place] hr capsule Medical Branch tamsulosin 2014-02- No .4mg Take 1 Cap Univers (FLOMAX) 0-20 - by mouth ity of 0.4 mg 24 00:00: 00:00 daily. [place] hr capsule Medical Branch Bentyl 20 Bentyl 20 No 1{table TID [...] Ibuprofen 600 MG 600 MG 600 MG [place] No 1{table TID [place] 7.5-325 MG 7.5-325 MG t_as_ne 7.5-325 MG eded} Gabapentin Gabapentin No 1{capsu QD Gabapentin 400 MG 400 MG le} 400 MG [place] Yes Levy 1 tablet Common [facility] as needed [facility] Amitriptyli Amitriptyli Yes Levy 1 tablet Common ne HCl ne HCl [facility] Zofran Zofran Yes [place] 2 tablets Comm on [facility] Pentasa Pentasa Yes [place] 2 capsules C ommon [facility] Lyrica Lyrica Yes Levy 1 capsule Comm on Hernandez 1 to 3 [facility] before [facility] bedtime in [facility] Lyrica 75 Lyrica 75 No Lyrica 75 [...] Ibuprofen 600 MG 600 MG 600 MG [place] No 1{table TID [place] 7.5-325 MG 7.5-325 MG t_as_ne 7.5-325 MG eded} Gabapentin Gabapentin No 1{capsu QD Gabapentin 400 MG 400 MG le} 400 MG Oxybutynin Oxybutynin No 1{table BID Oxybutynin Chloride 5 Chloride 5 t} Chloride 5 MG MG MG Gabapentin Gabapentin No 1{capsu QD Gabapentin 400 MG 400 MG le} 400 MG [place] No 1{table TID [place] 7.5-325 MG 7.5-325 MG t_as_ne 7.5-325 MG [...] 400 MG 400 MG le} 400 MG [place] No 1{table TID [place] 7.5-325 MG 7.5-325 MG t_as_ne 7.5-325 MG [...] QID Pentasa MG MG les} 500 MG Immunizations Ordered Filled Date Status Comments Source Immunization Name Immunization Name Twinrix (hep a/hep 2015-07-29 Completed Univer sity of b) 00:00:00 [facility] Twinrix (hep a/hep 2015-07-29 Completed Univer sity of b) 00:00:00 [facility] Twinrix (hep a/hep 2015-07-29 Completed Univer sity of b) 00:00:00 [facility] Twinrix (hep a/hep 2015-07-29 Completed Univer sity of b) 00:00:00 [facility] Twinrix (hep a/hep 2015-07-29 Completed Univer sity of b) 00:00:00 [facility] Twinrix (hep a/hep 2015-07-29 Completed Univer sity of b) 00:00:00 [facility] Twinrix (hep a/hep 2015-07-29 Completed Univer sity of b) 00:00:00 [facility] Twinrix (hep a/hep 2015-07-29 Completed Univer sity of b) 00:00:00 [facility] Twinrix (hep a/hep 2015-07-29 Completed Univer sity of b) 00:00:00 [facility] Twinrix (hep a/hep 2015-07-29 Completed Univer sity of b) 00:00:00 [facility] Twinrix (hep a/hep 2015-07-29 Completed Univer sity of b) 00:00:00 [facility] Twinrix (hep a/hep 2015-07-29 Completed Univer sity of b) 00:00:00 [facility] Twinrix (hep a/hep 2015-07-29 Completed Univer sity of b) 00:00:00 [facility] Twinrix (hep a/hep 2015-07-29 Completed Univer sity of b) 00:00:00 [facility] Twinrix (hep a/hep 2015-07-29 Completed Univer sity of b) 00:00:00 [place] [facility] Twinrix (hep a/hep 2015-07-29 Completed Univer sity of b) 00:00:00 [place] [facility] Twinrix (hep a/hep 2015-07-29 Completed Univer sity of b) 00:00:00 [place] [facility] Twinrix (hep a/hep 2015-07-29 Completed Univer sity of b) 00:00:00 [place] [facility] Twinrix (hep a/hep 2015-07-29 Completed Univer sity of b) 00:00:00 [place] [facility] Twinrix (hep a/hep 2015-07-29 Completed Univer sity of b) 00:00:00 [facility] Twinrix (hep a/hep 2015-07-29 Completed Univer sity of b) 00:00:00 [facility] Twinrix (hep a/hep 2015-07-29 Completed Univer sity of b) 00:00:00 [facility] Twinrix (hep a/hep 2015-07-29 Completed Univer sity of b) 00:00:00 [facility] Twinrix (hep a/hep 2015-07-29 Completed Univer sity of b) 00:00:00 [facility] Twinrix (hep a/hep 2015-07-29 Completed Univer sity of b) 00:00:00 [facility] Twinrix (hep a/hep 2015-07-29 Completed Univer sity of b) 00:00:00 [facility] Twinrix (hep a/hep 2015-07-29 Completed Univer sity of b) 00:00:00 [facility] Twinrix (hep a/hep 2015-07-29 Completed Univer sity of b) 00:00:00 [facility] Twinrix (hep a/hep 2015-07-29 Completed Univer sity of b) 00:00:00 [place] [facility] Twinrix (hep a/hep 2015-07-29 Completed Univer sity of b) 00:00:00 [facility] Twinrix (hep a/hep 2015-07-29 Completed Univer sity of b) 00:00:00 [facility] Twinrix (hep a/hep 2015-07-29 Completed Univer sity of b) 00:00:00 [place] [facility] Twinrix (hep a/hep 2015-07-29 Completed Univer sity of b) 00:00:00 [place] [facility] Twinrix (hep a/hep 2015-07-29 Completed Univer sity of b) 00:00:00 [place] [facility] Twinrix (hep a/hep 2015-07-29 Completed Univer sity of b) 00:00:00 [place] [facility] Twinrix (hep a/hep 2015-07-29 Completed Univer sity of b) 00:00:00 [place] [facility] Twinrix (hep a/hep 2015-07-29 Completed Univer sity of b) 00:00:00 [facility] Twinrix (hep a/hep 2015-07-29 Completed Univer sity of b) 00:00:00 [facility] Twinrix (hep a/hep 2015-07-29 Completed Univer sity of b) 00:00:00 [facility] Twinrix (hep a/hep 2015-07-29 Completed Univer sity of b) 00:00:00 [facility] Twinrix (hep a/hep 2015-07-29 Completed Univer sity of b) 00:00:00 [facility] Twinrix (hep a/hep 2015-07-29 Completed Univer sity of b) 00:00:00 [place] [facility] Twinrix (hep a/hep 2015-07-29 Completed Univer sity of b) 00:00:00 [facility] Twinrix (hep a/hep 2015-07-29 Completed Univer sity of b) 00:00:00 [place] [facility] Twinrix (hep a/hep 2015-07-29 Completed Univer sity of b) 00:00:00 [place] [facility] Twinrix (hep a/hep 2015-07-29 Completed Univer sity of b) 00:00:00 [facility] Twinrix (hep a/hep 2015-07-29 Completed Univer sity of b) 00:00:00 [place] [facility] Twinrix (hep a/hep 2015-07-29 Completed Univer sity of b) 00:00:00 [facility] Twinrix (hep a/hep 2015-07-29 Completed Univer sity of b) 00:00:00 [facility] Twinrix (hep a/hep 2015-07-29 Completed Univer sity of b) 00:00:00 [place] [facility] Twinrix (hep a/hep 2015-07-29 Completed Univer sity of b) 00:00:00 [place] [facility] Twinrix (hep a/hep 2015-07-29 Completed Univer sity of b) 00:00:00 [place] [facility] Twinrix (hep a/hep 2015-07-29 Completed Univer sity of b) 00:00:00 [place] [facility] Twinrix (hep a/hep 2015-07-29 Completed Univer sity of b) 00:00:00 [facility] Twinrix (hep a/hep 2015-07-29 Completed Univer sity of b) 00:00:00 [facility] Twinrix (hep a/hep 2015-07-29 Completed Univer sity of b) 00:00:00 [facility] Twinrix (hep a/hep 2015-07-29 Completed Univer sity of b) 00:00:00 [facility] Twinrix (hep a/hep 2015-07-29 Completed Univer sity of b) 00:00:00 [facility] Twinrix (hep a/hep 2015-07-29 Completed Univer sity of b) 00:00:00 [place] [facility] Twinrix (hep a/hep 2015-07-29 Completed Univer sity of b) 00:00:00 [facility] Twinrix (hep a/hep 2015-07-29 Completed Univer sity of b) 00:00:00 [place] [facility] Twinrix (hep a/hep 2015-07-29 Completed Univer sity of b) 00:00:00 [place] [facility] Twinrix (hep a/hep 2015-07-29 Completed Univer sity of b) 00:00:00 [place] [facility] Twinrix (hep a/hep 2015-07-29 Completed Univer sity of b) 00:00:00 [place] [facility] Twinrix (hep a/hep 2015-07-29 Completed Univer sity of b) 00:00:00 [facility] Twinrix (hep a/hep 2015-07-29 Completed Univer sity of b) 00:00:00 [facility] Twinrix (hep a/hep 2015-07-29 Completed Univer sity of b) 00:00:00 [facility] Twinrix (hep a/hep 2015-07-29 Completed Univer sity of b) 00:00:00 [facility] Twinrix (hep a/hep 2015-07-29 Completed Univer sity of b) 00:00:00 [facility] Twinrix (hep a/hep 2015-07-29 Completed Univer sity of b) 00:00:00 [facility] Twinrix (hep a/hep 2015-07-29 Completed Univer sity of b) 00:00:00 [facility] Twinrix (hep a/hep 2015-07-29 Completed Univer sity of b) 00:00:00 [facility] Twinrix (hep a/hep 2015-07-29 Completed Univer sity of b) 00:00:00 [facility] Twinrix (hep a/hep 2015-07-29 Completed Univer sity of b) 00:00:00 [facility] Influenza Virus 2015-06-29 Completed Universit y of Vaccine Quad IM 3+ 00:00:00 [facility] Influenza Virus 2015-06-29 Completed Universit y of Vaccine Quad IM 3+ 00:00:00 [facility] Influenza Virus 2015-06-29 Completed Universit y of Vaccine Quad IM 3+ 00:00:00 [facility] Influenza Virus 2015-06-29 Completed Universit y of Vaccine Quad IM 3+ 00:00:00 [facility] Influenza Virus 2015-06-29 Completed Universit y of Vaccine Quad IM 3+ 00:00:00 [facility] Influenza Virus 2015-06-29 Completed Universit y of Vaccine Quad IM 3+ 00:00:00 [facility] Influenza Virus 2015-06-29 Completed Universit y of Vaccine Quad IM 3+ 00:00:00 [facility] Influenza Virus 2015-06-29 Completed Universit y of Vaccine Quad IM 3+ 00:00:00 [facility] Influenza Virus 2015-06-29 Completed Universit y of Vaccine Quad IM 3+ 00:00:00 [facility] Influenza Virus 2015-06-29 Completed Universit y of Vaccine Quad IM 3+ 00:00:00 [facility] Influenza Virus 2015-06-29 Completed Universit y of Vaccine Quad IM 3+ 00:00:00 [facility] Influenza Virus 2015-06-29 Completed Universit y of Vaccine Quad IM 3+ 00:00:00 [facility] Influenza Virus 2015-06-29 Completed Universit y of Vaccine Quad IM 3+ 00:00:00 [facility] Influenza Virus 2015-06-29 Completed Universit y of Vaccine Quad IM 3+ 00:00:00 [facility] Influenza Virus 2015-06-29 Completed Universit y of Vaccine Quad IM 3+ 00:00:00 [facility] Influenza Virus 2015-06-29 Completed Universit y of Vaccine Quad IM 3+ 00:00:00 [facility] Influenza Virus 2015-06-29 Completed Universit y of Vaccine Quad IM 3+ 00:00:00 [facility] Influenza Virus 2015-06-29 Completed Universit y of Vaccine Quad IM 3+ 00:00:00 [facility] Influenza Virus 2015-06-29 Completed Universit y of Vaccine Quad IM 3+ 00:00:00 [facility] Influenza Virus 2015-06-29 Completed Universit y of Vaccine Quad IM 3+ 00:00:00 [facility] Influenza Virus 2015-06-29 Completed Universit y of Vaccine Quad IM 3+ 00:00:00 [facility] Influenza Virus 2015-06-29 Completed Universit y of Vaccine Quad IM 3+ 00:00:00 [facility] Influenza Virus 2015-06-29 Completed Universit y of Vaccine Quad IM 3+ 00:00:00 [facility] Influenza Virus 2015-06-29 Completed Universit y of Vaccine Quad IM 3+ 00:00:00 [facility] Influenza Virus 2015-06-29 Completed Universit y of Vaccine Quad IM 3+ 00:00:00 [facility] Influenza Virus 2015-06-29 Completed Universit y of Vaccine Quad IM 3+ 00:00:00 [facility] Influenza Virus 2015-06-29 Completed Universit y of Vaccine Quad IM 3+ 00:00:00 [facility] Influenza Virus 2015-06-29 Completed Universit y of Vaccine Quad IM 3+ 00:00:00 [facility] Influenza Virus 2015-06-29 Completed Universit y of Vaccine Quad IM 3+ 00:00:00 [facility] Influenza Virus 2015-06-29 Completed Universit y of Vaccine Quad IM 3+ 00:00:00 [facility] Influenza Virus 2015-06-29 Completed Universit y of Vaccine Quad IM 3+ 00:00:00 [facility] Influenza Virus 2015-06-29 Completed Universit y of Vaccine Quad IM 3+ 00:00:00 [facility] Influenza Virus 2015-06-29 Completed Universit y of Vaccine Quad IM 3+ 00:00:00 [facility] Influenza Virus 2015-06-29 Completed Universit y of Vaccine Quad IM 3+ 00:00:00 [facility] Influenza Virus 2015-06-29 Completed Universit y of Vaccine Quad IM 3+ 00:00:00 [facility] Influenza Virus 2015-06-29 Completed Universit y of Vaccine Quad IM 3+ 00:00:00 [facility] Influenza Virus 2015-06-29 Completed Universit y of Vaccine Quad IM 3+ 00:00:00 [facility] Influenza Virus 2015-06-29 Completed Universit y of Vaccine Quad IM 3+ 00:00:00 [facility] Influenza Virus 2015-06-29 Completed Universit y of Vaccine Quad IM 3+ 00:00:00 [facility] Influenza Virus 2015-06-29 Completed Universit y of Vaccine Quad IM 3+ 00:00:00 [facility] Influenza Virus 2015-06-29 Completed Universit y of Vaccine Quad IM 3+ 00:00:00 [facility] Influenza Virus 2015-06-29 Completed Universit y of Vaccine Quad IM 3+ 00:00:00 [facility] Influenza Virus 2015-06-29 Completed Universit y of Vaccine Quad IM 3+ 00:00:00 [facility] Influenza Virus 2015-06-29 Completed Universit y of Vaccine Quad IM 3+ 00:00:00 [facility] Influenza Virus 2015-06-29 Completed Universit y of Vaccine Quad IM 3+ 00:00:00 [facility] Influenza Virus 2015-06-29 Completed Universit y of Vaccine Quad IM 3+ 00:00:00 [facility] Influenza Virus 2015-06-29 Completed Universit y of Vaccine Quad IM 3+ 00:00:00 [facility] Influenza Virus 2015-06-29 Completed Universit y of Vaccine Quad IM 3+ 00:00:00 [facility] Influenza Virus 2015-06-29 Completed Universit y of Vaccine Quad IM 3+ 00:00:00 [facility] Influenza Virus 2015-06-29 Completed Universit y of Vaccine Quad IM 3+ 00:00:00 [facility] Influenza Virus 2015-06-29 Completed Universit y of Vaccine Quad IM 3+ 00:00:00 [facility] Influenza Virus 2015-06-29 Completed Universit y of Vaccine Quad IM 3+ 00:00:00 [facility] Influenza Virus 2015-06-29 Completed Universit y of Vaccine Quad IM 3+ 00:00:00 [facility] Influenza Virus 2015-06-29 Completed Universit y of Vaccine Quad IM 3+ 00:00:00 [facility] Influenza Virus 2015-06-29 Completed Universit y of Vaccine Quad IM 3+ 00:00:00 [facility] Influenza Virus 2015-06-29 Completed Universit y of Vaccine Quad IM 3+ 00:00:00 [facility] Influenza Virus 2015-06-29 Completed Universit y of Vaccine Quad IM 3+ 00:00:00 [facility] Influenza Virus 2015-06-29 Completed Universit y of Vaccine Quad IM 3+ 00:00:00 [facility] Influenza Virus 2015-06-29 Completed Universit y of Vaccine Quad IM 3+ 00:00:00 [facility] Influenza Virus 2015-06-29 Completed Universit y of Vaccine Quad IM 3+ 00:00:00 [facility] Influenza Virus 2015-06-29 Completed Universit y of Vaccine Quad IM 3+ 00:00:00 [facility] Influenza Virus 2015-06-29 Completed Universit y of Vaccine Quad IM 3+ 00:00:00 [facility] Influenza Virus 2015-06-29 Completed Universit y of Vaccine Quad IM 3+ 00:00:00 [facility] Influenza Virus 2015-06-29 Completed Universit y of Vaccine Quad IM 3+ 00:00:00 [facility] Influenza Virus 2015-06-29 Completed Universit y of Vaccine Quad IM 3+ 00:00:00 [facility] Influenza Virus 2015-06-29 Completed Universit y of Vaccine Quad IM 3+ 00:00:00 [facility] Influenza Virus 2015-06-29 Completed Universit y of Vaccine Quad IM 3+ 00:00:00 [facility] Influenza Virus 2015-06-29 Completed Universit y of Vaccine Quad IM 3+ 00:00:00 [facility] Influenza Virus 2015-06-29 Completed Universit y of Vaccine Quad IM 3+ 00:00:00 [facility] Influenza Virus 2015-06-29 Completed Universit y of Vaccine Quad IM 3+ 00:00:00 [facility] Influenza Virus 2015-06-29 Completed Universit y of Vaccine Quad IM 3+ 00:00:00 [facility] Influenza Virus 2015-06-29 Completed Universit y of Vaccine Quad IM 3+ 00:00:00 [facility] Influenza Virus 2015-06-29 Completed Universit y of Vaccine Quad IM 3+ 00:00:00 [facility] Influenza Virus 2015-06-29 Completed Universit y of Vaccine Quad IM 3+ 00:00:00 [facility] Twinrix (hep a/hep 2015-06-28 Completed Univer sity of b) 00:00:00 [facility] Twinrix (hep a/hep 2015-06-28 Completed Univer sity of b) 00:00:00 [facility] Twinrix (hep a/hep 2015-06-28 Completed Univer sity of b) 00:00:00 [facility] (hep a/hep 2015-06-28 Completed Univer sity of b) 00:00:00 [facility] (hep a/hep 2015-06-28 Completed Univer sity of b) 00:00:00 [facility] (hep a/hep 2015-06-28 Completed Univer sity of b) 00:00:00 [facility] (hep a/hep 2015-06-28 Completed Univer sity of b) 00:00:00 [facility] (hep a/hep 2015-06-28 Completed Univer sity of b) 00:00:00 [facility] (hep a/hep 2015-06-28 Completed Univer sity of b) 00:00:00 [facility] (hep a/hep 2015-06-28 Completed Univer sity of b) 00:00:00 [facility] (hep a/hep 2015-06-28 Completed Univer sity of b) 00:00:00 [facility] (hep a/hep 2015-06-28 Completed Univer sity of b) 00:00:00 [facility] (hep a/hep 2015-06-28 Completed Univer sity of b) 00:00:00 [facility] (hep a/hep 2015-06-28 Completed Univer sity of b) 00:00:00 [facility] (hep a/hep 2015-06-28 Completed Univer sity of b) 00:00:00 [facility] (hep a/hep 2015-06-28 Completed Univer sity of b) 00:00:00 [facility] (hep a/hep 2015-06-28 Completed Univer sity of b) 00:00:00 [facility] (hep a/hep 2015-06-28 Completed Univer sity of b) 00:00:00 [facility] (hep a/hep 2015-06-28 Completed Univer sity of b) 00:00:00 [facility] (hep a/hep 2015-06-28 Completed Univer sity of b) 00:00:00 [facility] (hep a/hep 2015-06-28 Completed Univer sity of b) 00:00:00 [facility] (hep a/hep 2015-06-28 Completed Univer sity of b) 00:00:00 [facility] (hep a/hep 2015-06-28 Completed Univer sity of b) 00:00:00 [facility] (hep a/hep 2015-06-28 Completed Univer sity of b) 00:00:00 [facility] (hep a/hep 2015-06-28 Completed Univer sity of b) 00:00:00 [facility] (hep a/hep 2015-06-28 Completed Univer sity of b) 00:00:00 [facility] (hep a/hep 2015-06-28 Completed Univer sity of b) 00:00:00 [facility] (hep a/hep 2015-06-28 Completed Univer sity of b) 00:00:00 [facility] (hep a/hep 2015-06-28 Completed Univer sity of b) 00:00:00 [facility] (hep a/hep 2015-06-28 Completed Univer sity of b) 00:00:00 [facility] (hep a/hep 2015-06-28 Completed Univer sity of b) 00:00:00 [facility] (hep a/hep 2015-06-28 Completed Univer sity of b) 00:00:00 [facility] (hep a/hep 2015-06-28 Completed Univer sity of b) 00:00:00 [facility] (hep a/hep 2015-06-28 Completed Univer sity of b) 00:00:00 [facility] (hep a/hep 2015-06-28 Completed Univer sity of b) 00:00:00 [facility] (hep a/hep 2015-06-28 Completed Univer sity of b) 00:00:00 [facility] (hep a/hep 2015-06-28 Completed Univer sity of b) 00:00:00 [facility] (hep a/hep 2015-06-28 Completed Univer sity of b) 00:00:00 [facility] (hep a/hep 2015-06-28 Completed Univer sity of b) 00:00:00 [facility] (hep a/hep 2015-06-28 Completed Univer sity of b) 00:00:00 [facility] (hep a/hep 2015-06-28 Completed Univer sity of b) 00:00:00 [facility] (hep a/hep 2015-06-28 Completed Univer sity of b) 00:00:00 [facility] (hep a/hep 2015-06-28 Completed Univer sity of b) 00:00:00 [facility] (hep a/hep 2015-06-28 Completed Univer sity of b) 00:00:00 [facility] (hep a/hep 2015-06-28 Completed Univer sity of b) 00:00:00 [facility] (hep a/hep 2015-06-28 Completed Univer sity of b) 00:00:00 [facility] (hep a/hep 2015-06-28 Completed Univer sity of b) 00:00:00 [facility] (hep a/hep 2015-06-28 Completed Univer sity of b) 00:00:00 [facility] (hep a/hep 2015-06-28 Completed Univer sity of b) 00:00:00 [facility] (hep a/hep 2015-06-28 Completed Univer sity of b) 00:00:00 [facility] (hep a/hep 2015-06-28 Completed Univer sity of b) 00:00:00 [facility] (hep a/hep 2015-06-28 Completed Univer sity of b) 00:00:00 [facility] (hep a/hep 2015-06-28 Completed Univer sity of b) 00:00:00 [facility] (hep a/hep 2015-06-28 Completed Univer sity of b) 00:00:00 [facility] (hep a/hep 2015-06-28 Completed Univer sity of b) 00:00:00 [facility] (hep a/hep 2015-06-28 Completed Univer sity of b) 00:00:00 [facility] (hep a/hep 2015-06-28 Completed Univer sity of b) 00:00:00 [facility] (hep a/hep 2015-06-28 Completed Univer sity of b) 00:00:00 [facility] (hep a/hep 2015-06-28 Completed Univer sity of b) 00:00:00 [facility] (hep a/hep 2015-06-28 Completed Univer sity of b) 00:00:00 [facility] (hep a/hep 2015-06-28 Completed Univer sity of b) 00:00:00 [facility] (hep a/hep 2015-06-28 Completed Univer sity of b) 00:00:00 [facility] (hep a/hep 2015-06-28 Completed Univer sity of b) 00:00:00 [facility] (hep a/hep 2015-06-28 Completed Univer sity of b) 00:00:00 [facility] (hep a/hep 2015-06-28 Completed Univer sity of b) 00:00:00 [facility] (hep a/hep 2015-06-28 Completed Univer sity of b) 00:00:00 [facility] (hep a/hep 2015-06-28 Completed Univer sity of b) 00:00:00 [facility] (hep a/hep 2015-06-28 Completed Univer sity of b) 00:00:00 [facility] (hep a/hep 2015-06-28 Completed Univer sity of b) 00:00:00 [facility] (hep a/hep 2015-06-28 Completed Univer sity of b) 00:00:00 [facility] (hep a/hep 2015-06-28 Completed Univer sity of b) 00:00:00 [facility] (hep a/hep 2015-06-28 Completed Univer sity of b) 00:00:00 [facility] (hep a/hep 2015-06-28 Completed Univer sity of b) 00:00:00 [facility] (hep a/hep 2015-06-28 Completed Univer sity of b) 00:00:00 [facility] (hep a/hep Unknown Completed Univer sity of b) [facility] Influenza Virus Unknown Completed [facility]it y of Vaccine [facility] IM 3+ [facility] (hep a/hep Unknown Completed Univer sity of b) [facility] (hep a/hep Unknown Completed Univer sity of b) [facility] Influenza Virus Unknown Completed Universit y of Vaccine Quad IM 3+ [facility] (hep a/hep Unknown Completed Univer sity of b) [facility] (hep a/hep Unknown Completed Univer sity of b) [facility] Influenza Virus Unknown Completed Universit y of Vaccine Quad IM 3+ [facility] (hep a/hep Unknown Completed Univer sity of b) [facility] (hep a/hep Unknown Completed Univer sity of b) [facility] Influenza Virus Unknown Completed [facility]it y of Vaccine Quad IM 3+ [facility] (hep a/hep Unknown Completed Univer sity of b) [facility] Vital Signs Vital Name Observation Time Observation Value Comments Source Systolic blood 2022-05-28 03:15:00 97 mm[Hg] Univer sity of pressure [facility] Diastolic blood 2022-05-28 03:15:00 75 mm[Hg] Unive rsity of pressure [facility] Heart rate 2022-05-28 03:15:00 82 /min Universi ty of [facility] Respiratory rate 2022-05-28 03:15:00 16 /min Univ ersity of [facility] Oxygen saturation in 2022-05-28 03:15:00 98 /min University of Arterial blood by [place] [employer] [facility] Pulse oximetry [facility] Body temperature 2022-05-28 00:28:00 36.78 Briseida [facility] ersity of [facility] Body height 2022-05-28 00:28:00 170.2 cm [facility] [place] Body weight 2022-05-28 00:28:00 72.576 kg [facility] BMI 2022-05-28 00:28:00 25.06 kg/m2 [facility] Systolic blood 2022-02-12 18:53:00 114 mm[Hg] Univer sity of pressure [facility] Diastolic blood 2022-02-12 18:53:00 78 mm[Hg] Unive rsity of [facility] [place] Heart rate 2022-02-12 18:48:00 89 /min [facility] ty of [facility] Body temperature 2022-02-12 18:48:00 36.67 Briseida Univ ersity of [facility] Respiratory rate 2022-02-12 18:48:00 18 /min Univ ersity of [facility] Body height 2022-02-12 18:48:00 170.2 cm [facility] Body weight 2022-02-12 18:48:00 72.576 kg [facility] BMI 2022-02-12 18:48:00 25.06 kg/m2 [facility] Oxygen saturation in 2022-02-12 18:48:00 96 /min [facility] of Arterial blood by [place] [employer] [facility] Pulse oxim[facility] Systolic blood 2021-11-05 23:35:00 [...] 100 /min [facility] of Arterial blood by [facility] Pulse oximetry Branch Body height 2021-11-05 18:55:00 170.2 cm [facility] Body weight 2021-11-05 18:55:00 72.576 kg [facility] BMI 2021-11-05 18:55:00 25.06 kg/m2 [facility] Systolic blood 2021-11-05 18:38:00 85 mm[Hg] Univer sity of pressure [facility] Diastolic blood 2021-11-05 18:38:00 64 mm[Hg] Unive rsity of pressure [facility] Heart rate 2021-11-05 18:03:00 100 /min [facility] Body temperature 2021-11-05 18:03:00 36.78 Briseida Univ ersity of [facility] Respiratory rate 2021-11-05 18:03:00 20 /min Univ ersity of [facility] Body height 2021-11-05 18:03:00 170.2 cm [facility] Body weight 2021-11-05 18:03:00 72.576 kg [facility] BMI 2021-11-05 18:03:00 25.06 kg/m2 [facility] Oxygen saturation in 2021-11-05 18:03:00 100 /min University of Arterial blood by [facility] Pulse oximetry Branch Systolic blood 2021-10-29 12:00:00 148 mm[Hg] Univer sity of pressure [facility] Diastolic blood 2021-10-29 12:00:00 58 mm[Hg] Unive rsity of pressure [facility] Heart rate 2021-10-29 12:00:00 92 /min [facility] [place] Respiratory rate 2021-10-29 12:00:00 12 /min [facility] ersity of [facility] Oxygen saturation in 2021-10-29 12:00:00 100 /min [facility] of Arterial blood by [facility] Pulse oximetry Branch Body temperature 2021-10-29 11:12:00 36.11 Briseida [facility] ersity of [facility] Body height 2021-10-29 11:12:00 170.2 cm [facility] [place] Body weight 2021-10-29 11:12:00 72.576 kg [facility] [place] BMI 2021-10-29 11:12:00 25.06 kg/m2 Universi ty of [facility] Systolic blood 2021-10-21 02:21:45 130 mm[Hg] Univer sity of pressure [facility] Diastolic blood 2021-10-21 02:21:45 68 mm[Hg] Unive rsity of [facility] Body temperature 2021-10-21 02:21:45 37.22 Briseida [facility] ersity of [facility] Heart rate 2021-10-21 00:30:00 84 /min [facility] [place] Oxygen saturation in 2021-10-21 00:30:00 98 /min [facility] of Arterial blood by [facility] Pulse oximetry Branch Respiratory rate 2021-10-20 23:09:00 18 /min [facility] ersity of [facility] Body height 2021-10-20 21:10:00 170.2 cm [facility] [place] Body weight 2021-10-20 21:10:00 72.576 kg Universi ty of [facility] BMI 2021-10-20 21:10:00 25.06 kg/m2 Universi ty of [facility] height 2021-10-12 09:30:00 63 [in_i] [facility] weight 2021-10-12 09:30:00 162 [lb_av] [facility] temperature 2021-10-12 09:30:00 98.3 [degF] [facility] bmi 2021-10-12 09:30:00 28.69 kg/m2 [facility] oximetry 2021-10-12 09:30:00 98 % [facility] respiratory rate 2021-10-12 09:30:00 16 /min [facility] blood pressure 2021-10-12 09:30:00 132 mm[Hg] [facility] systolic [facility] blood pressure 2021-10-12 09:30:00 68 mm[Hg] [facility] diastolic [facility] Systolic blood 2021-08-26 18:00:00 157 mm[Hg] Univer sity of pressure [facility] Diastolic blood 2021-08-26 18:00:00 97 mm[Hg] Unive rsity of pressure [facility] Heart rate 2021-08-26 18:00:00 87 /min [facility] [place] Respiratory rate 2021-08-26 18:00:00 18 /min Univ ersity of [facility] Oxygen saturation in 2021-08-26 18:00:00 97 /min [facility] Arterial blood by [place] [employer] [facility] Body temperature 2021-08-26 13:42:00 37.11 Briseida Univ ersity of [facility] Body weight 2021-08-26 13:42:00 70.308 kg [facility]i ty of [facility] BMI 2021-08-26 13:42:00 24.28 kg/m2 [facility] Systolic blood 2020-12-12 16:16:00 97 mm[Hg] Univer sity of pressure [facility] Diastolic blood 2020-12-12 16:16:00 67 mm[Hg] Unive rsity of pressure [facility] Heart rate 2020-12-12 16:16:00 97 /min [facility] Body temperature 2020-12-12 16:16:00 37.67 Briseida Univ ersity of [facility] Respiratory rate 2020-12-12 16:16:00 18 /min Univ ersity of [facility] Oxygen saturation in 2020-12-12 16:16:00 93 /min [facility] Arterial blood by [place] [employer] [employer] [facility] Body weight 2020-12-12 08:45:00 95.391 kg [facility] of [facility] BMI 2020-12-12 08:45:00 32.94 kg/m2 [facility] Body height 2020-12-05 22:36:00 170.2 cm [facility] Systolic blood 2020-07-14 22:03:00 156 mm[Hg] Univer sity of pressure [facility] Diastolic blood 2020-07-14 22:03:00 93 mm[Hg] Unive rsity of pressure [facility] Heart rate 2020-07-14 22:03:00 84 /min [facility] Respiratory rate 2020-07-14 22:03:00 20 /min Univ ersity of [facility] Oxygen saturation in 2020-07-14 22:03:00 98 /min [facility] Arterial blood by [place] [employer] Body temperature 2020-07-14 03:11:00 36.67 Briseida Univ ersity of [facility] Body weight 2020-07-13 20:13:00 83.898 kg [facility] BMI 2020-07-13 20:13:00 28.97 kg/m2 [facility] Systolic blood 2020-07-13 15:43:00 119 mm[Hg] Univer sity of pressure [facility] Diastolic blood 2020-07-13 15:43:00 77 mm[Hg] Unive rsity of pressure [facility] Heart rate 2020-07-13 15:43:00 68 /min [facility] ty [facility] Oxygen saturation in 2020-07-13 15:43:00 95 /min [facility] Arterial blood by [place] [employer] P[facility] Systolic blood 2020-07-07 04:00:00 142 mm[Hg] Univer sity of pressure [facility] Diastolic blood 2020-07-07 04:00:00 94 mm[Hg] Unive rsity of pressure [facility] Heart rate 2020-07-07 04:00:00 73 /min [facility] ty [facility] Respiratory rate 2020-07-07 04:00:00 13 /min Univ ersity of [facility] Oxygen saturation in 2020-07-07 04:00:00 99 /min [facility] Arterial blood by [place] [employer] [employer] [facility] Body temperature 2020-07-07 00:04:24 36.83 Briseida Univ ersity of [facility] Body weight 2020-07-06 23:44:00 86.183 kg [facility] BMI 2020-07-06 23:44:00 29.76 kg/m2 [facility] Systolic blood 2020-07-04 21:16:00 142 mm[Hg] Univer sity of pressure [facility] Diastolic blood 2020-07-04 21:16:00 93 mm[Hg] Unive rsity of pressure [facility] Heart rate 2020-07-04 21:16:00 72 /min [facility]i ty [facility] Respiratory rate 2020-07-04 21:16:00 18 /min Univ ersity of [facility] Oxygen saturation in 2020-07-04 21:16:00 97 /min [facility] Arterial blood by [place] [employer] Body temperature 2020-07-04 17:14:00 36.89 Briseida Univ ersity of [facility] Body weight 2020-07-04 17:14:00 86.183 kg [facility]i ty [facility] BMI 2020-07-04 17:14:00 29.76 kg/m2 [facility] Systolic blood 2020-06-28 20:07:00 110 mm[Hg] Univer sity of pressure [facility] Diastolic blood 2020-06-28 20:07:00 67 mm[Hg] Unive rsity of pressure [facility] Heart rate 2020-06-28 20:07:00 57 /min [facility]i ty [facility] Body temperature 2020-06-28 20:07:00 36.83 Briseida Univ ersity of [facility] Respiratory rate 2020-06-28 20:07:00 16 /min Univ ersity of [facility] Oxygen saturation in 2020-06-28 20:07:00 99 /min [facility] Arterial blood by [place] [employer] Body height 2020-06-27 03:02:00 170.2 cm [facility] Body weight 2020-06-27 03:02:00 83.008 kg [facility] BMI 2020-06-27 03:02:00 28.66 kg/m2 [facility] Systolic blood 2020-06-02 16:17:00 133 mm[Hg] Univer sity of pressure [facility] Diastolic blood 2020-06-02 16:17:00 89 mm[Hg] Unive rsity of pressure [facility] Heart rate 2020-06-02 16:17:00 72 /min [facility] ty [facility] Body temperature 2020-06-02 16:17:00 36.17 Briseida Univ ersity of [facility] Respiratory rate 2020-06-02 16:17:00 20 /min Univ ersity of [facility] Oxygen saturation in 2020-06-02 16:17:00 96 /min [facility] of Arterial blood by [facility]adine Pulse oximetry [facility] Body height 2020-05-30 22:29:00 170.2 cm [facility]i ty of [facility] Body weight 2020-05-30 22:29:00 81.647 kg [facility] BMI 2020-05-30 22:29:00 28.19 kg/m2 [facility] Systolic blood 2020-05-27 02:05:00 118 mm[Hg] Univer sity of pressure [facility] Diastolic blood 2020-05-27 02:05:00 73 mm[Hg] Unive rsity of pressure [facility] Heart rate 2020-05-27 02:05:00 80 /min [facility] ty [facility] Respiratory rate 2020-05-27 02:05:00 10 /min Univ ersity of [facility] Oxygen saturation in 2020-05-27 02:05:00 93 /min [facility] of Arterial blood by [facility] Pulse oximetry Branch Body temperature 2020-05-26 23:07:00 37.22 Briseida Univ ersity of [facility] Body height 2020-05-26 23:07:00 170.2 cm [facility] ty [facility] Body weight 2020-05-26 23:07:00 88.451 kg [facility] BMI 2020-05-26 23:07:00 30.54 kg/m2 [facility] Systolic blood 2020-05-13 22:00:00 106 mm[Hg] Univer sity of pressure [facility] Diastolic blood 2020-05-13 22:00:00 57 mm[Hg] Unive rsity of pressure [facility] Heart rate 2020-05-13 22:00:00 54 /min [facility]i ty of [facility] Respiratory rate 2020-05-13 22:00:00 16 /min Univ ersity of [facility] Oxygen saturation in 2020-05-13 22:00:00 100 /min [facility] of Arterial blood by [facility] Pulse oximetry Branch Body temperature 2020-05-13 16:33:00 37.56 Briseida Univ ersity of [facility] Body weight 2020-05-13 16:33:00 77.111 kg [facility] BMI 2020-05-13 16:33:00 26.63 kg/m2 [facility] Systolic blood 2020-05-13 15:28:00 135 mm[Hg] Univer sity of pressure [facility] Diastolic blood 2020-05-13 15:28:00 88 mm[Hg] Unive rsity of pressure [facility] Heart rate 2020-05-13 15:28:00 80 /min [facility] ty [facility] Body temperature 2020-05-13 15:28:00 36.67 Briseida Univ ersity of [facility] Respiratory rate 2020-05-13 15:28:00 18 /min Univ ersity of [facility] Body height 2020-05-13 15:28:00 170.2 cm [facility] Body weight 2020-05-13 15:28:00 77.111 kg [facility] BMI 2020-05-13 15:28:00 26.63 kg/m2 [facility] Oxygen saturation in 2020-05-13 15:28:00 99 /min University of Arterial blood by [facility] Pulse oximetry Branch Systolic blood 2020-03-23 15:48:00 130 mm[Hg] Univer sity of pressure [facility] Diastolic blood 2020-03-23 15:48:00 89 mm[Hg] Unive rsity of pressure [facility] Heart rate 2020-03-23 15:48:00 95 /min [facility] Body height 2020-03-23 15:48:00 170.2 cm [facility] Body weight 2020-03-23 15:48:00 83.008 kg [facility] BMI 2020-03-23 15:48:00 28.66 kg/m2 Universi ty of [facility] Oxygen saturation in 2020-03-23 15:48:00 100 /min [facility] of Arterial blood by [facility] Pulse oximetry Branch Systolic blood 2019-12-08 18:48:47 99 mm[Hg] Univer sity of pressure [facility] [place] Diastolic blood 2019-12-08 18:48:47 70 mm[Hg] Unive rsity of pressure [facility] Heart rate 2019-12-08 18:48:47 63 /min Universi ty of [facility] Respiratory rate 2019-12-08 18:48:47 18 /min Univ ersity of [facility] Oxygen saturation in 2019-12-08 18:48:47 100 /min [facility] of Arterial blood by [facility] Pulse oximetry Branch Body temperature 2019-12-08 16:07:00 37 Briseida [facility] Body height 2019-12-08 16:07:00 170.2 cm Universi ty of [facility] Body weight 2019-12-08 16:07:00 81.647 kg Universi ty [facility] BMI 2019-12-08 16:07:00 28.19 kg/m2 Universi ty [facility] Systolic blood 2019-12-08 15:11:00 119 mm[Hg] Univer sity of [facility] Diastolic blood 2019-12-08 15:11:00 80 mm[Hg] Unive rsity of [facility] Heart rate 2019-12-08 15:11:00 83 /min Universi ty of [facility] Body temperature 2019-12-08 15:11:00 36.44 Briseida [facility] Respiratory rate 2019-12-08 15:11:00 18 /min [facility] Body weight 2019-12-08 15:11:00 82.827 kg [facility] BMI 2019-12-08 15:11:00 28.60 kg/m2 [facility] Procedures Procedure Date / Time Performing Clinician Source Performed CT ABDOMEN PELVIS WO 2022-05-28 01:32:42 Nabil Conway [facility] COMP. METABOLIC PANEL 2022-05-28 01:01:00 Nabil Conway [facility] ([id number]) [facility] CBC WITH DIFF 2022-05-28 01:01:00 [facility] URINALYSIS 2022-05-28 01:01:00 [facility] CONSENT/REFUSAL FOR 2022-05-28 00:18:54 Doctor Unassigned, [facility] 2022-02-12 19:22:00 Shireen Raza [facility] URINALYSIS 2021-11-05 20:20:00 Torey Kay Joanie [facility] MAGNESIUM 2021-11-05 19:47:00 Torey Kay [facility] TROPONIN I 2021-11-05 19:47:00 Torey Kay [facility] COMP. METABOLIC PANEL 2021-11-05 19:47:00 Torey Kay [facility] ([id number]) [facility] CBC WITH DIFF 2021-11-05 19:47:00 Torey Kay Joanie [facility] XR CHEST 1 VW 2021-11-05 19:36:08 Torey Kay [facility] CONSENT/REFUSAL FOR 2021-11-05 18:50:56 Doctor Unassigned, [facility] DIAGNOSIS AND TREATMENT [place] [facility] POCT MOLECULAR FLU 2021-11-05 18:20:00 Unknown, Attending [facility] POCT MOLECULAR STREP 2021-11-05 18:08:00 Unknown, Attending [facility] EKG-12 LEAD 2021-10-29 12:47:59 Charles [facility] CT CHEST PULMONARY 2021-10-29 11:57:27 Charles Templeton [facility] ANGIOGRAM Medical Branch COVID-19 (ID NOW RAPID 2021-10-29 11:38:00 Charles Templeton [facility] TESTING) Medical Branch LIPASE 2021-10-29 11:35:00 Charles [facility] TROPONIN I 2021-10-29 11:35:00 Charles [facility] COMP. METABOLIC PANEL 2021-10-29 11:35:00 Charles Templeton [facility] ([id number]) Medical Branch CBC WITH DIFF 2021-10-29 11:35:00 Charles [facility] PROTHROMBIN TIME / INR 2021-10-29 11:35:00 Charles Templeton [facility] ACTIVATED PARTIAL 2021-10-29 11:35:00 Charles Templeton [facility] N-TERMINAL PRO-BNP 2021-10-29 11:35:00 Charles Templeton [facility] CONSENT/REFUSAL FOR 2021-10-29 11:05:40 Doctor Unabeverly, [facility] DIAGNOSIS AND TREATMENT [place] [facility] URINALYSIS 2021-10-21 00:48:00 Cesar [facility] CT ANGIOGRAM 2021-10-21 00:27:00 Cesar [facility] ABDOMEN/PELVIS [facility] [place] COMP. METABOLIC PANEL 2021-10-20 22:22:00 Katherine Guerrero [facility] ([id number]) [facility] CBC WITH DIFF 2021-10-20 22:22:00 Cesar [facility] PROTHROMBIN TIME / INR 2021-10-20 22:22:00 Cesar Katherine [facility] ACTIVATED PARTIAL 2021-10-20 22:22:00 Cesar [facility] CONSENT/REFUSAL FOR 2021-10-20 20:49:49 Doctor Georgia [facility] DIAGNOSIS AND TREATMENT [place] [facility] AUTHORIZATION FOR RELEASE 2021-09-15 05:01:00 Doctor Unabeverly, [facility] [place] [facility] ABDOMEN PELVIS W 2021-08-26 16:31:09 Torey Kay [facility] CONTRAST [facility] URINE DRUG (IMMUNOASSAY) 2021-08-26 15:26:00 Torey Kay [facility] COMPREHENSIVE DRUG Medical [facility] SCREEN URINALYSIS 2021-08-26 15:26:00 Torey Kay [facility] XR CHEST 1 VW 2021-08-26 14:33:00 Torey Kay [facility] BLOOD CULTURE SCREEN 2021-08-26 14:21:00 Torey Kay [facility] BLOOD CULTURE SCREEN 2021-08-26 14:15:00 Torey Kay [facility] LIPASE 2021-08-26 14:15:00 Torey Kay [facility] MAGNESIUM 2021-08-26 14:15:00 Torey Kay [facility] TROPONIN I 2021-08-26 14:15:00 Torey Kay [facility] COMP. METABOLIC PANEL 2021-08-26 14:15:00 Torey Kay [facility] ([id number]) [facility] CBC WITH DIFF 2021-08-26 14:15:00 Torey Kay Joanie [facility] AC PANEL 21 + LACTIC ACID 2021-08-26 14:14:00 Torey Kay [facility] CONSENT/REFUSAL FOR 2021-08-26 13:50:45 Doctor Unassigned, [facility] DIAGNOSIS AND TREATMENT [place] [facility] PHOSPHORUS 2020-12-12 10:06:00 [facility] MAGNESIUM 2020-12-12 10:06:00 [facility] BASIC METABOLIC PANEL 2020-12-12 10:06:00 Nehemias Pollock Rene [facility] (NA, K, CL, CO2, GLUCOSE, Medica l Branch BUN, CREATININE, CA) VANCOMYCIN RANDOM LEVEL 2020-12-11 14:30:00 Nasir Fowler [facility] OSMOLALITY URINE 2020-12-11 10:41:00 Nicole Sanchez [facility] CREATININE, URINE RANDOM 2020-12-11 10:39:00 Nicole Sanchez [facility] POTASSIUM, URINE RANDOM 2020-12-11 10:39:00 Nicole Sanchez [facility] SODIUM, URINE RANDOM 2020-12-11 10:39:00 Nicole Sanchez [facility] PHOSPHORUS 2020-12-11 08:50:00 [facility] 2020-12-11 08:50:00 Nicole Sanchez [facility] MAGNESIUM 2020-12-11 08:50:00 Sandrita [facility] OSMOLALITY, SERUM OR 2020-12-11 08:50:00 Nicole Sanchez [facility] BASIC METABOLIC PANEL 2020-12-11 08:50:00 Sandrita [facility] (NA, K, CL, CO2, GLUCOSE, Medica l Branch BUN, CREATININE, CA) CBC WITH DIFF 2020-12-11 08:50:00 [facility] 2020-12-10 20:31:00 [facility] URINE CULTURE 2020-12-10 20:31:00 [facility] BLOOD CULTURE SCREEN 2020-12-10 17:58:00 Janeth [facility] BLOOD CULTURE SCREEN 2020-12-10 17:51:00 Janeth [facility] PHOSPHORUS 2020-12-10 17:50:00 [facility] BASIC METABOLIC PANEL 2020-12-10 17:50:00 Nicole Sanchez [facility] (NA, K, CL, CO2, GLUCOSE, Medica l Branch BUN, CREATININE, CA) CBC WITH DIFF 2020-12-10 17:49:00 Janeth [facility] XR CHEST 1 VW 2020-12-10 17:21:04 Janeth [facility] VANCOMYCIN TROUGH 2020-12-10 14:44:00 Sandrita [facility] PHOSPHORUS 2020-12-10 10:29:00 Sandrita [facility] MAGNESIUM 2020-12-10 10:29:00 Sandrita [facility] BASIC METABOLIC PANEL 2020-12-10 10:29:00 Sandrita [facility] (NA, K, CL, CO2, GLUCOSE, Medica l Branch BUN, CREATININE, CA) BASIC METABOLIC PANEL 2020-12-10 00:50:00 Nicole Sanchez [facility] (NA, K, CL, CO2, GLUCOSE, Medica l Branch BUN, CREATININE, CA) VANCOMYCIN TROUGH 2020-12-09 19:02:00 Sandrita [facility] PHOSPHORUS 2020-12-09 09:58:00 Sandrita [facility] MAGNESIUM 2020-12-09 09:58:00 Sandrita [facility] BASIC METABOLIC PANEL 2020-12-09 09:58:00 [facility] (NA, K, CL, CO2, GLUCOSE, Medica l Branch BUN, CREATININE, CA) CT ABDOMEN PELVIS W 2020-12-08 17:35:25 Lesley Jay [facility] CONTRAST [facility] Branch PHOSPHORUS 2020-12-08 09:38:00 Sandrita [facility] MAGNESIUM 2020-12-08 09:38:00 [facility] BASIC METABOLIC PANEL 2020-12-08 09:38:00 Sandrita [facility] (NA, K, CL, CO2, GLUCOSE, Medica l Branch BUN, CREATININE, CA) VANCOMYCIN TROUGH 2020-12-08 06:35:00 Sandrita [facility] TRANSTHORACIC ECHO (TTE) 2020-12-07 18:35:00 Nasir Fowler [facility] COMPLETE [facility] Branch MAGNESIUM 2020-12-07 09:59:00 [facility] BASIC METABOLIC PANEL 2020-12-07 09:59:00 Sandrita [facility] (NA, K, CL, CO2, GLUCOSE, Medica l Branch BUN, CREATININE, CA) CBC WITH DIFF 2020-12-07 09:59:00 Sandrita [facility] BASIC METABOLIC PANEL 2020-12-07 02:15:00 Sandrita [facility] (NA, K, CL, CO2, GLUCOSE, Medica l Branch BUN, CREATININE, CA) MAGNESIUM 2020-12-06 15:50:00 Nick Garcia [facility] BASIC METABOLIC PANEL 2020-12-06 15:50:00 [facility] (NA, K, CL, CO2, GLUCOSE, Medica l Branch BUN, CREATININE, CA) CBC WITH DIFF 2020-12-06 15:50:00 [facility] MAGNESIUM 2020-12-05 22:29:00 [facility] BASIC METABOLIC PANEL 2020-12-05 22:29:00 Alecia Eagle [facility] (NA, K, CL, CO2, GLUCOSE, Medica l Branch BUN, CREATININE, CA) CT HEAD WO CONTRAST 2020-12-05 20:11:36 Alecia Eagle [facility] POCT GLUCOSE(AGE >30DAYS) 2020-12-05 19:44:00 Alecia Eagle [facility] POCT TEST 2020-12-05 18:53:00 Alecia Eagle [facility] URINE DRUG (IMMUNOASSAY) 2020-12-05 18:49:00 Alecia Eagle [facility] DRUG Medical [facility] SCREEN URINALYSIS 2020-12-05 18:49:00 Alecia Eagle [facility] URINE CULTURE 2020-12-05 18:49:00 Alecia Eagle [facility] EXTRA TUBE LT. BLUE 2020-12-05 18:49:00 Alecia Eagle [facility] XR CHEST 1 VW 2020-12-05 18:44:56 Alecia Eagle [facility] COVID-19 (ID NOW RAPID 2020-12-05 18:39:00 Alecia Eagle [facility] TESTING) Medical Branch LAB ONLY COVID 2020-12-05 18:39:00 Alecia Eagle [facility] INTERPRETATION [facility] BLOOD CULTURE SCREEN 2020-12-05 18:35:00 Alecia Eagle [facility] LIPASE 2020-12-05 18:35:00 Alecia Eagle [facility] MAGNESIUM 2020-12-05 18:35:00 Alecia Eagle [facility] TROPONIN I 2020-12-05 18:35:00 Alecia Eagle [facility] THYROID STIMULATING 2020-12-05 18:35:00 Alecia Eagle [facility] HORMONE [facility] COMP. METABOLIC PANEL 2020-12-05 18:35:00 Alecia Eagle [facility] ([id number]) [facility] CBC WITH DIFF 2020-12-05 18:35:00 Alecia Eagle [facility] LACTIC ACID WHOLE BLOOD 2020-12-05 18:34:00 Alecia Eagle [facility] AC PANEL 20 + LACTIC ACID 2020-12-05 18:34:00 Alecia [facility] ROUTINE & RHYTHM 2020-12-05 18:24:21 Alecia Eagle [facility] PHYSICIAN ORDERS 2020-09-09 05:01:00 Doctor Unassigned, [facility] [place] [facility] Branch CBC WITH DIFF 2020-08-09 17:14:00 Luisa [facility] URINALYSIS 2020-08-09 17:14[facility] 2020-08-09 17:14:00 Luisa [facility] C-REACTIVE PROTEIN 2020-08-09 17:14:00 [facility]isa [facility] COMP. METABOLIC PANEL 2020-08-09 17:14:00 Leigh Moran [facility] ([id number]) [facility] SEDIMENTATION RATE 2020-08-09 17:14:00 Luisa [facility] ANTI-SSB(LA) 2020-08-09 17:14:00 Leigh [place] [facility] ADC OR LEXX ONLY - RPR 2020-08-09 17:14:00 Leigh Moran Un [facility] HIV 1/2 AG-AB WITH REFLEX 2020-08-09 17:14:00 Leigh Moran Un [facility] ASSIGNMENT OF BENEFITS 2020-08-09 16:41:17 Doctor Unassigned, Un [facility] [place] BODY FLUID DIRECT COUNT 2020-07-14 20:10:00 Hansel Kennedy [facility] CSF CULTURE 2020-07-14 20:10:[address] [facility] CEREBROSPINAL FLUID 2020-07-14 20:09:00 Hansel Kennedy [facility] PROTEIN [facility] CEREBROSPINAL FLUID 2020-07-14 20:09:00 Hansel Kennedy [facility] GLUCOSE [facility] EXTRA TUBE CSF 2020-07-14 20:09:[address] [facility] MENINGITIS/ENCEPHALITIS 2020-07-14 20:09:00 Hansel Kennedy [facility] PANEL BY PCR [facility] POCT GLUCOSE (AUTOMATED) 2020-07-14 14:55:00 Christina Roque [facility] MAGNESIUM 2020-07-14 13:11:[address] [facility] PHOSPHORUS 2020-07-14 13:10:00 Jyothi [facility] [place] [facility] XR CHEST 1 VW 2020-07-14 13:06:[address] [facility] URINALYSIS 2020-07-14 09:32:00 Bhaskar Reyna [facility] COVID-19 (ID NOW RAPID 2020-07-14 09:25:00 Bhaskar Reyna [facility] TESTING) [facility] C-REACTIVE PROTEIN 2020-07-14 01:10:00 Bhaskar Reyna [facility] HEPATIC FUNCTION PANEL 2020-07-14 01:10:00 Bhaskar Reyna [facility] ([id number]) (ALB,T.PRO,BILI Medical Branch T,BU/BC,ALT,AST,ALK PHOS) BASIC METABOLIC PANEL 2020-07-14 01:10:00 Bhaskar Reyna [facility] (NA, K, CL, CO2, GLUCOSE, Medica l Branch BUN, CREATININE, CA) SEDIMENTATION RATE 2020-07-14 01:10:00 Bhaskar Reyna [facility] CBC WITH DIFF 2020-07-14 01:10:00 Bhaskar Reyna [facility] AUTHORIZATION FOR RELEASE 2020-07-08 05:01:00 Doctor [place], [facility] Medical Branch REFERRAL- 2020-07-07 05:01:00 Doctor [place], [facility] REQUEST/RESPONSE [place] [facility] CBC WITH DIFF 2020-07-07 03:16:00 Alecia Eagle [facility] NOTICE OF PRIVACY 2020-07-06 23:35:30 Doctor [place], [facility] PRACTICES [place] [facility] [place] CONSENT/REFUSAL FOR 2020-07-06 23:35:07 Doctor Georgia [facility] DIAGNOSIS AND TREATMENT [place] [facility] [place] CT HEAD WO CONTRAST 2020-07-04 19:42:39 Lety Noriega [facility] LIPASE 2020-07-04 18:56:00 Lety Noriega [facility] COMP. METABOLIC PANEL 2020-07-04 18:56:00 Lety Noriega [facility] ([id number]) [facility] [place] CBC WITH DIFF 2020-07-04 18:56:00 Lety Noriega [facility] URINALYSIS 2020-07-04 18:56:00 Lety Noriega [facility] CONSENT/REFUSAL FOR 2020-07-04 17:04:54 Doctor Georgia [facility] DIAGNOSIS AND TREATMENT [place] [facility] [place] TROPONIN I 2020-06-27 16:14:00 Lobaina, [facility] o f [facility] MR BRAIN WO CONTRAST 2020-06-27 10:20:11 Jose Cintron [facility] COVID-19 (ID NOW RAPID 2020-06-26 22:32:00 Tung [facility] TESTING) Medical [place] CT ANGIOGRAM HEAD 2020-06-26 22:14:19 Tung [facility] CT ANGIOGRAM NECK 2020-06-26 22:14:19 Tung [facility] CT HEAD WO CONTRAST 2020-06-26 22:02:20 Tung [facility] URINALYSIS 2020-06-26 21:28:00 Tung [facility] XR CHEST 1 VW 2020-06-26 20:27:04 Ruby, [facility] TROPONIN I 2020-06-26 20:24:00 Tung [facility] HEPATIC FUNCTION PANEL 2020-06-26 20:24:00 Ruby, [facility] ([id number]) (ALB,T.PRO,BILI [facility] T,BU/BC,ALT,AST,ALK PHOS) BASIC METABOLIC PANEL 2020-06-26 20:24:00 Ruby, [facility] (NA, K, CL, CO2, GLUCOSE, Medica l Branch BUN, CREATININE, CA) SEDIMENTATION RATE 2020-06-26 20:24:00 Tung Sabrina [facility] CBC WITH DIFF 2020-06-26 [facility]:24[facility] & RHYTHM 2020-06-26 20:16:57 RubySabrina garcia [facility] CONSENT/REFUSAL FOR 2020-06-26 20:02:52 Doctor Unassigned, [facility] DIAGNOSIS AND TREATMENT [place] [facility] COMP. METABOLIC PANEL 2020-06-01 09:54:00 Zenaida Rodrigez [facility] ([id number]) Medical Branch BASIC METABOLIC PANEL 2020-05-31 14:36:00 Cade Hernadez [facility] (NA, K, CL, CO2, GLUCOSE, Medica l Branch BUN, CREATININE, CA) CBC WITH DIFF 2020-05-31 12:26:00 Ad Remy [facility] CT ABDOMEN PELVIS W WO 2020-05-30 20:49:43 Katherine Guerrero [facility] CONTRAST [facility] BLOOD CULTURE SCREEN 2020-05-30 20:16:00 Katherine Guerrero [facility] LACTIC ACID WHOLE BLOOD 2020-05-30 20:15:00 Katherine Guerrero [facility] URINALYSIS 2020-05-30 20:14:00 Katherine Guerrero [facility] HEPATIC FUNCTION PANEL 2020-05-30 20:13:00 Katherine Guerrero [facility] ([id number]) (ALB,T.PRO,BILI Medical Branch T,BU/BC,ALT,AST,ALK PHOS) BASIC METABOLIC PANEL 2020-05-30 20:13:00 Katherine Guerrero [facility] (NA, K, CL, CO2, GLUCOSE, Medica l Branch BUN, CREATININE, CA) CBC WITH DIFF 2020-05-30 20:13:00 Katherine Guerrero [facility] PROTHROMBIN TIME / INR 2020-05-30 20:13:00 Katherine Guerrero [facility] ACTIVATED PARTIAL 2020-05-30 20:13:00 Katherine Guerrero [facility] THRLAS [facility] Branch COVID-19 (ID NOW RAPID 2020-05-30 20:13:00 Katherine Guerrero [facility] TESTING) Medical Branch LAB ONLY COVID 2020-05-30 20:13:00 Katherine Guerrero [facility] INTERPRETATION [facility] BLOOD CULTURE SCREEN 2020-05-30 20:09:00 Katherine Guerrero [facility] CONSENT/REFUSAL FOR 2020-05-30 19:22:16 Doctor Unassigned, [facility] DIAGNOSIS AND TREATMENT [place] [facility] URINALYSIS 2020-05-27 00:16:00 Umm Mares [facility] HEPATIC FUNCTION PANEL 2020-05-26 23:25:00 Umm Mares [facility] ([id number]) (ALB,T.PRO,BILI Medical Branch T,BU/BC,ALT,AST,ALK PHOS) BASIC METABOLIC PANEL 2020-05-26 23:25:00 Umm Mares [facility] (NA, K, CL, CO2, GLUCOSE, Medica l Branch BUN, CREATININE, CA) CBC WITH DIFF 2020-05-26 23:25:00 Umm Mares [facility] CONSENT/REFUSAL FOR 2020-05-26 22:59:39 Doctor Georgia [facility] DIAGNOSIS AND TREATMENT [place] [facility] [place] URINALYSIS 2020-05-13 18:34:00 Dottie Troncoso [facility] CT ABDOMEN PELVIS W 2020-05-13 17:26:18 Dottie Troncoso [facility] CONTRAST [facility] Branch LIPASE 2020-05-13 16:47:00 Dottie Troncoso [facility] HEPATIC FUNCTION PANEL 2020-05-13 16:47:00 Dottie Troncoso [facility] ([id number]) (ALB,T.PRO,BILI Medical Branch T,BU/BC,ALT,AST,ALK PHOS) BASIC METABOLIC PANEL 2020-05-13 16:47:00 Dottie Troncoso [facility] (NA, K, CL, CO2, GLUCOSE, Medica l Branch BUN, CREATININE, CA) CBC WITH DIFF 2020-05-13 16:47:00 Dottie Troncoso [facility] NOTICE OF PRIVACY 2020-05-13 16:27:55 Doctor [place], [facility] PRACTICES [place] [facility] [place] CONSENT/REFUSAL FOR 2020-05-13 16:23:10 Doctor Georgia [facility] DIAGNOSIS AND TREATMENT [place] [facility] [place] EXTERNAL PROVIDER RECORDS 2019-12-10 05:01:00 Doctor Ho [facility] Name [facility] [place] US ABDOMEN LIMITED 2019-12-08 18:04:34 Lesley Bee [facility] XR CHEST 1 VW 2019-12-08 17:33:32 Lesley Bee [facility] CT ABDOMEN PELVIS WO 2019-12-08 16:24:35 Lesley Bee [facility] CONTRAST Medical Branch COMP. METABOLIC PANEL 2019-12-08 16:15:00 Lesley Bee [facility] ([id number]) Medical Branch CBC WITH DIFF 2019-12-08 16:15:00 Lesley Bee [facility] URINALYSIS 2019-12-08 16:13:00 Lesley Bee [facility] POCT TEST 2019-12-08 16:12:00 Lesley Bee [facility] NOTICE OF PRIVACY 2019-12-08 15:46:34 Doctor Unassigned, [facility] PRACTICES [place] CONSENT/REFUSAL FOR 2019-12-08 15:46:19 Doctor Unabeverly, [facility] DIAGNOSIS AND TREATMENT [place] [facility] POCT URINALYSIS AUTO 2019-12-08 15:09:00 Abhijit Mcgowan [facility] PHYSICIAN CERTIFICATION 2019-09-29 05:01:00 Doctor [place], [facility] STATEMENT [place] AGREEMENTS AUTHORIZATIONS 2019-03-28 06:01:00 Doctor Unabeverly, [facility] AND IRREVOCABLE [facility] ASSIGNMENTS (FORM 2001) Plan of Care Planned Activity Planned Date Details Comments Source Future Scheduled 2023-10-26 Lipid panel (procedure) [facility] Test 00:00:00 [code = 95652144] Medical Ce nter Future Scheduled 2021-10-13 INFLUENZA VACCINE (#1) [facility] 00:00:00 [code = INFLUENZA Medical Ce nter VACCINE (#1)] Future Scheduled 1996-05-19 Screening for malignant [facility] Test 00:00:00 neoplasm of cervix Medical C enter (procedure) [code = 964391092] Future Scheduled 1994-05-19 DTAP/TDAP/TD VACCINES [facility] 00:[facility]:00 [code = CT Colonography [facility] (combo)] Future Scheduled 1975 Screening for malignant [facility] Test 00:00:00 neoplasm of colon Medical Ce nter (procedure) [code = 161967086] Future Scheduled 1975 Screening for malignant [facility] Test 00:00:00 neoplasm of colon Medical Ce nter (procedure) [code = 979398205] Future Scheduled 1975 Screening for malignant [facility] Test 00:00:00 neoplasm of colon Medical Ce nter (procedure) [code = 358024520] Future Scheduled 1975 Screening for malignant [facility] Test 00:00:00 neoplasm of colon Medical Ce nter (procedure) [code = 267423007] Future Scheduled 1975 Sigmoidoscopy [code = [facility] S[facility]oscopy] Medical Cente r Encounters Start End Encounter Admission Attending Care Care Encounter Source Date/Time Date/Time Type Type Clinicians Facility Department ID 2022-10-18 Outpatient Nick Fallon DEVINJANKI [facility] [id number] Common 14:05:00 [id number] [facility] 2021-10-24 Outpatient Vasyl Nick [facility] [id number] Common 13:29:00 [id number] [facility] 2021-09-19 Outpatient Nick Fallon JANKI [facility] [id number] Common 14:12:01 [id number] [facility] 2021-03-09 Outpatient Hernandez, DEVINJANKI [facility] [id number] Common 13:01:40 Counts Include [facility] [id number] [facility] 2021-03-09 Outpatient HernandezST luanJANKI [facility] [id number] Common 13:01:30 Counts Include [facility] [id number] [facility] 2020-12-12 Emergency [facility] [id number] Univers 22:28:34 ity of [facility] 2020-12-12 Emergency [facility] [id number] Univers 21:17:57 ity of [facility] 2020-12-12 Emergency [facility] [id number] Univers 20:44:10 ity of [facility] 2020-12-12 Emergency [facility] [id number] Univers 13:38:38 ity of [facility] 2020-12-12 Emergency [facility] [id number] Univers 12:59:09 ity of [facility] 2020-12-12 Emergency [facility] [id number] Univers 10:04:40 ity of [facility] 2020-12-11 Emergency [facility] [id number] Univers 01:01:21 ity of [facility] 2022-05-27 2022-05-27 [facility] [id number] Univers 19:35:00 22:34:00 NABIL mccall [facility] 2022-05-27 2022-05-27 [facility] [id number] Univers 19:35:00 22:34:00 Nabil VELASCO [id number] i ty of [place] [id number] [facility] [id number] [facility] 084 Branch 2022-05-27 2022-05-27 Orders Doctor CIPRIANO [id number] Univers 00:00:00 00:00:00 Only Unassigned, KATIE [id number] ity of [place] [facility] [id number] Baldemar as [id number] [facility] 009 Branch 2022-02-12 2022-02-12 Outpatient R RY [facility] [id number] Univers 13:05:15 23:59:00 SHIREEN mccall [facility] 2022-02-12 2022-02-12 [facility] 1.2.840.114 [id number] Univers 13:05:15 23:59:00 Encounter [facility] 350.1.13.[address] 4.2.7.2.686 Baldemar as GEORGINA?BLEA [phone] In nory SHARPE 808 [facility] OFFICE [facility] 2022-02-12 2022-02-12 Urgent Shireen Raza [facility] 1.2.840.114 [id number] Univers 12:40:00 13:44:52 Care Unknown, Attending HEALTH 350.1.13.10 [facility] 4.2.7.2.686 [place] as GEORGINA?BLEA [phone] In nory SHARPE 370 [facility] 2022-02-12 2022-02-12 Telephone [facility] 1.2.078.241 [id number] Univers 00:00:00 00:00:00 [facility] 350.1.13.10 it y [facility] 4.2.7.2.686 Badlemar as GEORGINA?BLEA [phone] In nory [facility] 370 [facility] 2021-11-05 2021-11-05 Emergency X Torey KAY [facility] ERT [id number] Univers 13:57:00 18:42:00 ity [facility] 2021-11-05 2021-11-05 Emergency Torey aKy [facility] 1.2.840.114 [id number] Univers 13:57:00 18:42:[address] 350.1.13.10 i ty of [place] 4.2.7.2.686 [place] [facility] [phone] [facility] [address] [place] 2021-11-05 2021-11-05 Urgent Anum Garay [facility] 1.2.840.114 [id number] Univers 13:00:00 13:20:00 Care Unknown, Attending HEALTH 350.1.13.[address] 4.2.7.2.686 [place] as GEORGINA?BLEA [phone] [address] 2021-11-05 2021-11-05 Outpatient R KRISTEN [facility] [id number] Univers 13:00:00 13:00:00 ANUM mccall [facility] 2021-10-29 2021-10-29 Emergency X SILVIA [facility] ERT [id number] Univers 06:06:00 08:18:00 CHARLES ity [facility] 2021-10-29 2021-10-29 [facility] 1.2.460.396 [id number] Univers 06:06:00 08:18:00 Charles VELASCO 350.1.13.10 ity of [facility] 4.2.7.2.686 [facility] [phone] [address] 2021-10-20 2021-10-20 Emergency X JENNIFEROCTAVIO NCYAW ERT [id number] Univers 16:11:00 21:33:00 GABRIELALI ity [facility] 2021-10-20 2021-10-20 Emergency Katherine Guerrero [facility] 1.2.840. 114 [id number] [facility] 16:11:00 21:33:00 Raizaaliyaoctavio Alecia Bah KRISTA 350.1.13.10 ity of [place] 4.2.7.2.686 [facility] [phone] [address] 2021-10-18 2021-10-18 (TEL) STLMLC STLMLC [id number] Co mmon 00:00:00 00:00:00 Spirit - CHI [facility] 2021-10-12 2021-10-12 OFFICE STLMLC STLMLC [id number] Co mmon 00:00:00 00:00:00 VISIT Spirit ESTAB PT - CHI LEVEL 5 [facility] 2021-09-26 2021-09-26 (TEL) STLMLC STLMLC [id number] Co mmon 00:00:00 00:00:00 Spirit - CHI [facility] 2021-09-19 2021-09-19 OFFICE STLMLC STLMLC [id number] Co mmon 00:00:00 00:00:00 VISIT NEW Spir it PT LEVEL 3 - CHI [facility] 2021-09-15 2021-09-15 Orders Doctor COTA 1.2.840.114 [id number] Univers 00:00:00 00:00:00 Only Unassigned, KATIE 350.1.13.10 ity of [place] [facility] 4.2.7.2.686 [facility] [phone] [place] [address] Branch 2021-08-26 2021-08-26 Emergency X Torey KAY [facility] ERT [id number] Univers 08:39:00 14:03:00 ity of [facility] 2021-08-26 2021-08-26 Emergency Torey Kay [facility] 1.2.840.114 [id number] Univers 08:39:00 14:03:00 Joanie KRISTA 350.1.13.10 i ty of [place] 4.2.7.2.686 [place] CAMPUS [phone] [facility] 084 Branch 2021-03-08 2021-03-08 Daniela [facility] 1.2.840.114 [id number] Univers 00:00:00 00:00:00 Johnson VELASCO 350.1.13.10 ity of [place] 4.2.7.2.686 [place] PROFESS[place] [phone] In dical [facility] 092 [facility] 2020-12-23 2020-12-23 Outpatient R [facility] [id number] Univers 00:00:00 00:00:00 ity of [facility] 2020-12-14 2020-12-14 Transition FILEMON Redman 1.2.840.114 [id number] Univers 00:00:00 00:00:00 of Care Josselin LEWIS 350.1.13.10 i ty of [place] 4.2.7.2.686 [place] [phone] [facility] 403 Branch 2020-12-14 2020-12-14 Patient Doctor CIPRIANO 1.2.840.114 [id number] Univers 00:00:00 00:00:00 Secure Msg Unassigned, KATIE 350.1.13.10 ity of [place] [facility] 4.2.7.2.686 Baldemar as [phone] [facility] 019 Branch 2020-12-05 2020-12-12 Inpatient X SANDRITA NCYAW CHOLO [id number] Univers 13:25:00 15:45:00 AD ity [facility] 2020-12-05 2020-12-12 Hospital Alecia Eagle [facility] 1.2.840. 114 [id number] Univers 13:25:00 15:45:00 Encounter Ad Remy 350.1.13.10 it[place] of [place] 4.2.7.2.[place] C[place] [phone] [address] 2020-11-01 2020-11-01 Refill Lavon [facility] 1.2.840.114 [id number] Univers 00:00:00 00:00:00 Michael Eaton 350.1.13.10 i ty of [place] Quan Ramirez 4.2.7.2.686 T roxy Baez [phone] [address] Office Building 2020-10-12 2020-10-12 Refsherron [facility] 1.2.840.114 [id number] Univers 00:00:00 00:00:00 Johnson Velasco 350.1.13.10 ity of [place] 4.2.7.2.686 [place] [facility] [phone] [facility] 092 [facility] 2020-10-07 2020-10-07 Chainer Anni, Ny Lab Main [facility] 1.2.8 40.114 [id number] Univers 10:29:15 10:44:15 Visit Anish Carrera 350.1.13.10 ity of [place] 4.2.7.2.686 [place] [facility] [phone] [address] 2020-10-07 2020-10-07 Outpatient R DEBI [facility] [id number] Univers 10:30:00 10:30:00 ANISH mccall of [facility] 2020-09-10 2020-09-10 Refsherron Doll [facility] 1.2.840.114 [id number] Univers 00:00:00 00:00:00 Michael Eaton 350.1.13.10 i ty of [place] Quan Ramirez 4.2.7.2.686 T exsudha Mcmanusle Baez [phone] [address] Office Building 2020-09-09 2020-09-09 Orders Doctor COTA 1.2.840.114 [id number] Univers 00:00:00 00:00:00 Only Unassigned, KATIE 350.1.13.10 ity of [place] [facility] 4.2.7.2.686 [place] as [phone] [facility] 009 Branch 2020-09-06 2020-09-06 Telephone CIPRIANO Machado 1.2.241.153 [id number] Univers 00:00:00 00:00:00 Emperatrizbharath Mccullough KATIE 350.1.13.10 i ty of HOSPITAL 4.2.7.2.686 [place] as [phone] [facility] 082 Branch 2020-08-13 2020-08-13 Refill Lavon [facility] 1.2.840.114 [id number] Univers 00:00:00 00:00:00 EatonFormerly [facility] 350.1.13.10 i ty of [place] Con[place] 4.2.7.2.686 T roxy Camilo Baez [phone] [facility][note 2] 092 [address] Office Building 2020-08-09 2020-08-09 Outpatient R DEBI, [facility] [id number] Univers 12:00:00 12:00:00 ANISH mccall [facility] 2020-08-09 2020-08-09 Chainer Anni, Adc Lab Main [facility] 1.2.8 40.114 [id number] Univers 11:42:15 11:57:15 Visit Anish Carrera 350.1.13.10 ity of [place] 4.2.7.2.686 [place] [facility] [phone] In dical nal 353 [address] Building 2020-08-09 2020-08-09 Orders Doctor CIPRIANO 1.2.840.114 [id number] Univers 00:00:00 00:00:00 Only Unassigned, KATIE 350.1.13.10 ity of [place] [facility] 4.2.7.2.686 [place] as [phone] [facility] 009 Branch 2020-08-04 2020-08-04 Patient Doctor CIPRIANO 1.2.840.114 [id number] Univers 00:00:00 00:00:00 Secure Msg Unassigned, KATIE 350.1.13.10 ity of [place] [facility] 4.2.7.2.686 [place] as [phone] [facility] 019 Branch 2020-08-04 2020-08-04 Patient Doctor CIPRIANO Castro.2.840.114 [id number] Univers 00:00:00 00:00:00 Secure Msg UnassignedKATIE 350.1.13.10 ity of [place] [facility] 4.2.7.2.686 [place] as [phone] [facility] 019 Branch 2020-07-13 2020-07-14 Emergency AufderShi chaudhry TRAUMA 1.2.840.114 [id number] Univers 15:14:00 19:27:00 Christina Roque ARGILLITE 350.1.13.10 ity of [place]2.[place].2.686 [place] [phone] [facility] 014 Branch 2020-07-13 2020-07-13 Office Castillo [facility] 1.2.840.114 [id number] Univers 09:44:58 11:19:02 Visit Johnson Velasco 350.1.13.10 ity of [place] 4.2.7.2.686 [place] Professio [phone] In dical [facility] 092 Branch [facility] 2020-07-13 2020-07-13 Outpatient R JOHNSON FISHER [facility] [id number] Univers 09:40:00 09:40:00 JOHNSON FISHER ity of [facility] 2020-07-13 2020-07-13 Letter CIPRIANO Hernandez 1.2.840.114 [id number] Univers 00:00:00 00:00:00 (Out) Fercho WILSON 350.1.13.10 ity of HOSPITAL 4.2.7.2.686 [place] [phone] [facility] 043 Branch 2020-07-08 2020-07-08 Orders Doctor COTA 1.2.840.114 [id number] Univers 00:00:00 00:00:00 Only UnassignedAKTIE 350.1.13.10 ity of [place] [facility] 4.2.7.2.686 [place] as [phone] [facility] 009 Branch 2020-07-07 2020-07-07 Orders Doctor COTA 1.2.840.114 [id number] Univers 00:00:00 00:00:00 Only UnassignedKATIE 350.1.13.10 ity of [place] [facility] 4.2.7.2.686 [place] as [phone] [facility] 009 Branch 2020-07-07 2020-07-07 Telephone Zackery [facility] 1.2.818.810 [id number] Univers 00:00:00 00:00:00 Angy PRIMARY 350.1.13.10 it [facility] 4.2.7.2.[place] [phone] In dical 086 Branch 2020-07-06 2020-07-06 Emergency Critical access hospital 1.2.180.598 [id number] Univers 18:48:00 23:59:00 Alecia S [place] 350.1.13.10 ity of [place] 4.2.7.2.686 [place] [phone] [place] 737634 Branch 2020-07-05 2020-07-05 Patient Doctor [facility] 1.2.840.114 [id number] Univers 00:00:00 00:00:00 Secure Msg Unassigned, ROBBCHRISTOPHER 350.1.13.10 ity of [place].2.7.2.686 [place] PROFESS[place] [phone] [facility] 092 Branch [facility] 2020-07-04 2020-07-04 Emergency [facility] 1.2.840.114 [id number] Univers 12:16:00 18:32:00 Lety Shine [place] 350.1.13.10 ity of [place] 4.2.7.2.686 [place] [phone] [place] 737634 Branch 2020-06-26 2020-06-28 Emergency Sabrina Ruby 1.2.840 .114 [id number] Univers 15:08:00 18:15:00 Caio Hernandez 350.1.13.10 ity of [facility] 4.2.7.2.686 [place] as [phone] [facility] 098 Branch 2020-06-26 2020-06-28 Outpatient X DAVID [facility] JYOTHI [id number] Univers 15:08:00 18:15:00 CAIO mccall o f [facility] 2020-06-28 2020-06-28 Telephone [facility] 1.2.840.114 [id number] Univers 00:00:00 00:00:00 Johnson Velasco 350.1.13.10 ity of [place] 4.2.7.2.686 [facility] s [facility] [phone] [place] 874722 [facility] 2020-06-22 2020-06-22 Outpatient STLMLC [facility] [id number] Common 00:00:00 00:00:00 Spirit - CHI [facility] 2020-05-30 2020-06-02 Emergency Cesar Katherine [facility] 1.2.840. 114 [id number] Univers 14:32:00 11:50:00 Ad Remy 350.1.13.10 ity of Cade Hernadez 4.2.7.2.686 [facility] [phone] [place] 737631 Branch 2020-05-31 2020-05-31 Outpatient R JUAN M [facility] [id number] Univers 09:45:00 09:45:00 ABHIJIT ity of [facility] 2020-05-26 2020-05-26 Emergency [facility] 1.2.742.191 [id number] Univers 18:10:00 21:41:00 Umm Velasco 350.1.13.10 ity of [place] 4.2.7.2.686 [facility] [phone] [facility] 084 Branch 2020-05-26 2020-05-26 Orders Doctor CIPRIANO 1.2.840.114 [id number] Univers 00:00:00 00:00:00 Only Unassigned, KATIE 350.1.13.10 ity of [place] [facility] 4.2.7.2.686 [place]ar [phone] [facility] 009 Branch 2020-05-13 2020-05-13 Emergency [facility] 1.2.840.114 [id number] Univers 11:30:00 17:34:00 Dottie Velasco 350.1.13.10 ity of [place] 4.2.7.2.686 [facility] [phone] [address] 2020-05-13 2020-05-13 Urgent Provider, [facility] 1.2.840.114 [id number] Univers 10:10:06 11:10:27 Care Sarah Orantes 350.1.13.10 ity of [place] 4.2.7.2.686 [place] as Professio [phone] [facility] [address] [place] Office Building One 2020-05-13 2020-05-13 Outpatient Krystal ORANTES [facility] [id number] Univers 11:00:00 11:00:00 SARAH ity of [facility] 2020-05-13 2020-05-13 Orders Doctor CIPRIANO 1.2.840.114 [id number] Univers 00:00:00 00:00:00 Only Unassigned, KATIE 350.1.13.10 ity of [place] [facility] 4.2.7.2.686 [place] as [phone] [facility] 00[address] [place] 2020-04-19 2020-04-19 Refsherron FisherLINCOL[facility] 1.2.840.114 [id number] Univers 00:00:00 00:00:00 Johnson Velasco 350.1.13.10 ity of [place].2.7.2.[place] [phone] [facility] 092 [facility] 2020-04-09 2020-04-09 Refsherron FisherLINCOL[facility] 1.2.840.114 [id number] Univers 00:00:00 00:00:00 Johnson Velasco 350.1.13.10 ity of [place] 4.2.7.2.686 [place] Profess[place] [phone] In dical nal 092 [facility] 2020-03-23 2020-03-23 Office [facility] 1.2.840.114 [id number] Univers 09:29:15 10:11:33 Visit Johnson Velasco 350.1.13.10 ity of [place] 4.2.7.2.686 [place] [phone] [facility] [address] [place] [address] 2020-03-23 2020-03-23 Outpatient R JOHNSON FISHER [facility] [id number] Univers 09:20:00 09:20:00 JOHNSON FISHER ity of [facility] 2020-03-15 2020-03-15 Refill [facility] 1.2.840.114 [id number] Univers 00:00:00 00:00:00 Johnson Velasco 350.1.13.10 ity of [place] 4.2.7.2.686 [place] [phone] [facility] 092 [facility] 2019-12-10 2019-12-10 Orders Doctor CIPRIANO 1.2.840.114 [id number] Univers 00:00:00 00:00:00 Only Unassigned, KATIE 350.1.13.10 [facility] 4.2.7.2.686 [place] [phone] [facility] 00[address] [place] 2019-12-09 2019-12-09 Case [facility] 1.2.840.114 [id number] Univers 00:00:00 00:00:00 Management Kari [place] 350.1.13.10 ity of [place] 4.2.7.2.686 [place] [phone] [facility] 204 [facility] 2019-12-08 2019-12-08 Emergency [facility] 1.2.642.828 [id number] Univers 11:01:00 14:17:00 Lesley Velasco 350.1.13.10 i ty of [place] 4.2.7.2.686 [place] [phone] [facility] [address] [place] 2019-12-08 2019-12-08 Office [facility] 1.2.840.114 [id number] Univers 09:53:04 10:44:29 Visit Abhijit Velasco 350.1.13.10 i ty of [place] 4.2.7.2.686 [place] [phone] [facility] 204 [facility] 2019-12-08 2019-12-08 Outpatient R JUAN M [facility] [id number] Univers 10:15:00 10:15:00 ABHIJIT ity of [facility] 2019-12-08 2019-12-08 Orders Doctor CIPRIANO 1.2.840.114 [id number] Univers 00:00:00 00:00:00 Only Unassigned, KATIE 350.1.13.10 ity of [place] [facility] 4.2.7.2.686 [place] [phone] [address] 2019-12-06 2019-12-06 [facility] 1.2.840.114 [id number] Univers 00:00:00 00:00:00 Johnson Velasco 350.1.13.10 ity of [place] 4.2.7.2.686 [place] [phone] In dical nal 2 [facility] 2019-10-17 2019-10-17 [facility] 1.2.840.114 [id number] Univers 00:00:00 00:00:00 Johnson Velasco 350.1.13.10 ity of [place] 4.2.7.2.686 [place] [phone] [facility] nal [address] [place] [address] 2019-09-29 2019-09-29 Orders Doctor CIPRIANO 1.2.840.114 [id number] Univers 00:00:00 00:00:00 Only Unassigned, KATIE 350.1.13.10 ity of [place] [facility] 4.2.7.2.686 [place] [phone] [address] 2019-09-23 2019-09-23 [facility] 1.2.840.114 [id number] Univers 00:00:00 00:00:00 Johnson Velasco 350.1.13.10 ity of [place] 4.2.7.2.686 [place] [phone] In dical nal 092 [facility] 2019-08-07 2019-08-07 [facility] 1.2.840.114 [id number] Univers 00:00:00 00:00:00 Johnson Velasco 350.1.13.10 ity of [place] 4.2.7.2.[place] [phone] In dical nal 2 [facility] 2019-05-21 2019-05-21 Soledad Fisher [facility] 1.2.840.114 [id number] Univers 00:00:00 00:00:00 Johnson Velasco 350.1.13.10 ity of [place] 4.2.7.2.686 [place] [phone] [facility] 092 [facility] 2019-04-24 2019-04-24 Soledad Fisher [facility] 1.2.840.114 [id number] Univers 00:00:00 00:00:00 Johnson Velasco 350.1.13.10 ity of [place] 4.2.7.2.[place] Profess[place] [phone] [address] 2019-04-17 2019-04-17 Soledad Fisher [facility] 1.2.840.114 [id number] Univers 00:00:00 00:00:00 Johnson Velasco 350.1.13.10 ity of [place] 4.2.7.2.[place] [phone] [facility] 092 [facility] 2019-04-07 2019-04-07 Neeses [facility] 1.2.840.114 [id number] Univers 00:00:00 00:00:00 Johnson Velasco 350.1.13.10 ity of [place] 4.2.7.2.686 [place] [phone] [facility] 092 [facility] 2019-03-28 2019-03-28 Chainer 2, [facility] Lab [facility] 1.2.840.114 [id number] Univers 11:02:20 11:17:20 Visit Johnson Fisherton 350.1.13 .10 ity of [place] 4.2.7.2.686 [place] Profess[place] [phone] [facility] 353 [facility] 2019-03-28 2019-03-28 Office Castillo [facility] 1.2.840.114 [id number] Univers 09:56:36 10:59:16 Visit Johnson Gopal Velasco 350.1.13.10 ity of [place] 4.2.7.2.686 [place] [phone] In dical nal 092 Branch Building 2019-03-28 2019-03-28 Orders Doctor CIPRIANO 1.2.840.114 [id number] Univers 00:00:00 00:00:00 Only Unassigned, KATIE 350.1.13.10 ity of [place] [facility] 4.2.7.2.686 Bald[place] sudha [phone] [facility] 009 Branch 2018-11-05 2018-11-05 Emergency E [facility] 7500 [facility] 11:03:00 11:03:[address] [facility] 2017-08-24 2017-08-24 [facility] [id number] Common 08:45:00 08:45:[address] [facility] 2017-08-01 2017-08-01 [facility] 14 [id number] Common 10:15:00 10:15:[address] Sp[address] [facility] Results Test Description Test Time Test Comments Results Result Comments Source COMP. METABOLIC PANEL (29173) 2022-05-28 01:28:49 Test Item Value Reference Range Interpretation Comme nts NA (test code = 8700396745) 141 mmol/L 135-145 K (test code = 7167491764) 4.3 mmol/L 3.5-5.0 CL (test code = 6129854396) 105 mmol/L 98-108 CO2 TOTAL (test code = 1160640345) 20 mmol/L 23-31 L AGAP (test code = 3258926630) 16 2-16 BUN (test code = 5153818925) 19 mg/dL 7-23 GLUCOSE (test code = 0913542095) 146 mg/dL 70-110 H CREATININE (test code = 0.80 mg/dL 0.50-1.04 6617615689) TOTAL BILI (test code = 0.7 mg/dL 0.1-1.0 0869952439) CALCIUM (test code = 8227961685) 9.9 mg/dL 8.6-10.6 T PROTEIN (test code = 6280795996) 7.9 g/dL 6.3-8.2 ALBUMIN (test code = 6265756843) 4.6 g/dL 3.5-5.0 ALK PHOS (test code = 5624178011) 129 U/L 34-122 H ALTv (test code = 1742-6) 36 U/L 5-35 H AST(SGOT) (test code = 7828159353) 37 U/L 13-40 eGFR (test code = 0269502606) 76.9 mL/min/1.73m2 ANTHONY (test code = ANTHONY) [...] tests). Lab Interpretation (test code = Abnormal 31966-4) [facility] WITH [id number] 01:15:09 Test Item Value Reference Range Interpretation Comments WBC (test code = 10.84 See_Comment [Automated 8390-2) message] The sy stem which generated this [...] (test code = 61.2 fL 39.0-49.9 H 56855-5) RDW-CV (test code = 18.0 % 12.0-15.5 H 788-0) PLT (test code = 339 See_Comment [Automated 777-3) message] The sy stem which generated this result transmitted reference range : 166 - 358 10*3/ ?L. The reference r miky was not used to interpret this result as normal/abnormal . MPV (test code = 9.7 fL 9.5-12.9 40498-0) NRBC/100 WBC (test 0.0 See_Comment [Automat ed code = 6350433814) message] The system which generated this result transmitted reference range : 0.0 - 10.0 /100 WBCs. The refer ence range was not u sed to interpret th is result as normal/abnormal . NRBC x10^3 (test code See_Comment [Auto mated = 8747672675) message] The s ystem which generated this result transmitted reference range : 10*3/?L. The reference range was not used to interpret this result as normal/abnormal . GRAN MAT (NEUT) % 62.2 % (test code = 770-8) IMM GRAN % (test code 2.00 % = 0663938249) LYMPH % (test code = 26.9 % 736-9) MONO % (test code = 7.9 % 5905-5) EOS % (test code = 0.7 % 713-8) BASO % (test code = 0.3 % 706-2) GRAN MAT x10^3(ANC) 6.73 10*3/uL 1.88-7.09 (test code = 8733399067) IMM GRAN x10^3 (test 0.22 10*3/uL 0.00-0.06 H code = 3668314981) LYMPH x10^3 (test code 2.92 10*3/uL 1.32-3.29 = 731-0) MONO x10^3 (test code 0.86 10*3/uL 0.33-0.92 = 742-7) EOS x10^3 (test code = 0.08 10*3/uL 0.03-0.39 711-2) BASO x10^3 (test code 0.03 10*3/uL 0.01-0.07 = 704-7) Lab Interpretation Abnormal (test code = 76897-4) [id number] Test Item Value Reference Interpretation Comments Range TROPONIN I (test 0.006 ng/mL See_Comment [Automated code = 1319379358) message] The system which generated this result [...] biotin. Lab Interpretation Normal (test code = 95038-3) [facility] Test Item Value Reference Range Interpretation Comments MAGNESIUM (test code = 6333841342) 1.9 mg/dL 1.7-2.4 Lab Interpretation (test code = Normal 61918-5) [facility] (90136)2021-11-05 20:23:53 Test Item Value Reference Range Interpretation Comments NA (test code = 139 mmol/L 135-145 5114386347) K (test code = 3.9 mmol/L 3.5-5 9112507596) CL (test code = 108 mmol/L 98-108 1854989517) CO2 TOTAL (test code = 18 mmol/L 23-31 L 9909791210) AGAP (test code = 2-16 9138324505) BUN (test code = 14 mg/dL 7-23 5548637661) GLUCOSE (test code = 99 mg/dL 70-110 3209728794) CREATININE (test code = 0.71 mg/dL 0.5-1.04 9673110032) TOTAL BILI (test code = 0.4 mg/dL 0.1-1.9 5892442366) CALCIUM (test code = 9.3 mg/dL 8.6-10.6 0980218077) T PROTEIN (test code = 7.8 g/dL 6.3-8.2 1236571883) ALBUMIN (test code = 4.5 g/dL 3.5-5 4916555295) ALK PHOS (test code = 111 U/L 34-122 0519747831) ALTv (test code = 32 U/L 5-35 1742-6) AST(SGOT) (test code = 41 U/L 13-40 H 1230332506) eGFR (test code = mL/min/1.73m2 7995957287) ANTHONY (test code = ANTHONY) Association of [...] tests). Lab Interpretation Abnormal (test code = 90190-0) [facility] WITH [id number] 20:05:58 Test Item Value Reference Range Interpretation Comments WBC (test code = See_Comment L [Automated 4090-2) message] The sy stem which generated this [...] (test code = 52.3 fL 39-49.9 H 27643-4) RDW-CV (test code = 16.1 % 12-15.5 H 788-0) PLT (test code = See_Comment [Automated 777-3) message] The sy stem which generated this result transmitted reference range : 166 - 358 10*3/ ?L. The reference r miky was not used to interpret this result as normal/abnormal . MPV (test code = 9.9 fL 9.5-12.9 38026-7) NRBC/100 WBC (test See_Comment [Automat ed code = 9604778768) message] The system which generated this result transmitted reference range : 0.0 - 10.0 /100 WBCs. The refer ence range was not u sed to interpret th is result as normal/abnormal . NRBC x10^3 (test code See_Comment [Auto mated = 4163826676) message] The s ystem which generated this result transmitted reference range : 10*3/?L. The reference range was not used to interpret this result as normal/abnormal . GRAN MAT (NEUT) % 43.9 % (test code = 770-8) IMM GRAN % (test code 0.30 % = 9070227626) LYMPH % (test code = 46.5 % 736-9) MONO % (test code = 8.5 % 5905-5) EOS % (test code = 0.5 % 713-8) BASO % (test code = 0.3 % 706-2) GRAN MAT x10^3(ANC) 1.71 10*3/uL 1.88-7.09 L (test code = 8571324495) IMM GRAN x10^3 (test 0-0.06 code = 9038806422) LYMPH x10^3 (test code 1.81 10*3/uL 1.32-3.29 = 731-0) MONO x10^3 (test code 0.33 10*3/uL 0.33-0.92 = 742-7) EOS x10^3 (test code = 0.03-0.39 L 711-2) BASO x10^3 (test code 0.01-0.07 = 704-7) Lab Interpretation Abnormal (test code = 64398-4) [facility] MOLECULAR [id number] 18:32:12 Test Item Value Reference Range Interpretation Comments POCT Molecular FluA (test code = Negative Negative 03600-0) POCT Molecular FluB (test code = Negative Negative 37405-4) Lab Interpretation (test code = Normal 66272-7) [facility] [id number] 18:16:35 Test Item Value Reference Range Interpretation Comments POCT Molecular Strep (test code = Negative Negative 17790-9) Lab Interpretation (test code = Normal 70747-9) [facility] CenterTR[facility] [id number] 12:15:46 Test Item Value Reference Interpretation Comments Range TROPONIN I (test 0.004 ng/mL See_Comment [Automated code = 2308612615) message] The system which generated this result [...] biotin. Lab Interpretation Normal (test code = 27473-2) [facility]N-[facility]MINAL [id number] 12:12:30 Test Item Value Reference Range Interpretation Comments NT-proBNP (test code 26 pg/mL See_Comment [Autom ated = 3357618685) message] The system which generated this result transmitted reference range : <=125. The reference range was not used to interpret this result as normal/abnormal . ANTHONY (test code = ANTHONY) Biotin has been reported to cause a negative bias, interpret results relative to patient's use of biotin. Lab Interpretation Normal (test code = 14534-1) [facility] [id number] 12:12:29 Test Item Value Reference Range Interpretation Comments APTT Patient (test See_Comment [Automat ed code = 3173-2) message] The system which generated this result transmitted reference range : 23 - 38 Seconds . The reference range was not used to interpr et this result as normal/abnormal . ANTHONY (test code = ANTHONY) The [facility] patient population mean normal value for aPTT is 30 seconds. Lab Interpretation Normal (test code = 75729-0) [facility] CenterPROTHROMBIN [facility] / [id number] 12:10:08 Test Item Value Reference Range Interpretation Comments PROTIME PATIENT (test See_Comment [Auto mated message] code = 5964-2) The system [employer] generated this result transmitted ref erence range: 12.0 - 1 4.7 Seconds. The re ference range was not u sed to interpret this result as normal/abnor mal. INR (test code = 6301-6) Nor mal INR <1.1; Warfarin Therap eutic range 2.0 to 3. 0 or 2.5 to 3.5, dep ending upon the indica tions. Lab Interpretation (test Normal code = 21890-5) [facility]COMP[facility] METABOLIC PANEL ([id number])2021-10-29 12:03:49 Test Item Value Reference Range Interpretation Comments NA (test code = 139 mmol/L 135-145 7844315482) K (test code = 3.9 mmol/L 3.5-5 3574857916) CL (test code = 110 mmol/L 98-108 H 0018559847) CO2 TOTAL (test code = 17 mmol/L 23-31 L 8539409651) AGAP (test code = 2-16 5633016738) BUN (test code = 23 mg/dL 7-23 6124089478) GLUCOSE (test code = 122 mg/dL 70-110 H 2612384132) CREATININE (test code = 1.05 mg/dL 0.5-1.04 H 2915109023) TOTAL BILI (test code = 0.4 mg/dL 0.1-1.4 4567025452) CALCIUM (test code = 9.5 mg/dL 8.6-10.6 8332836589) T PROTEIN (test code = 7.5 g/dL 6.3-8.2 7793349909) ALBUMIN (test code = 4.6 g/dL 3.5-5 6278199181) ALK PHOS (test code = 134 U/L 34-122 H 1883499702) ALTv (test code = 28 U/L 5-35 1742-6) AST(SGOT) (test code = 29 U/L 13-40 7996728713) eGFR (test code = mL/min/1.73m2 7645557517) ANTHONY (test code = ANTHONY) Association of [...] tests). Lab Interpretation Abnormal (test code = 66110-1) [facility]LIPASE2022-[facility] 12:03:49 Test Item Value Reference Range Interpretation Comments LIPASE (test code = 9982962509) 63 U/L 0-220 Lab Interpretation (test code = Normal 82717-1) [facility] CenterCB WITH [id number] 11:59:27 Test Item Value Reference Range Interpretation [...] (test code = 51.6 fL 39-49.9 H 22171-5) RDW-CV (test code = 15.4 % 12-15.5 788-0) PLT (test code = See_Comment H [Automated 777-3) message] The sy stem which generated this result transmitted reference range : 166 - 358 10*3/ ?L. The reference r miky was not used to interpret this result as normal/abnormal . MPV (test code = 9.9 fL 9.5-12.9 55529-3) NRBC/100 WBC (test See_Comment [Automat ed code = 8301168369) message] The system which generated this result transmitted reference range : 0.0 - 10.0 /100 WBCs. The refer ence range was not u sed to interpret th is result as normal/abnormal . NRBC x10^3 (test code See_Comment [Auto mated = 0792397651) message] The s ystem which generated this result transmitted reference range : 10*3/?L. The reference range was not used to interpret this result as normal/abnormal . GRAN MAT (NEUT) % 73.7 % (test code = 770-8) IMM GRAN % (test code 0.30 % = 9059375729) LYMPH % (test code = 20.4 % 736-9) MONO % (test code = 4.8 % 5905-5) EOS % (test code = 0.5 % 713-8) BASO % (test code = 0.3 % 706-2) GRAN MAT x10^3(ANC) 8.49 10*3/uL 1.88-7.09 H (test code = 9956047314) IMM GRAN x10^3 (test 0.04 10*3/uL 0-0.06 code = 5069085675) LYMPH x10^3 (test code 2.35 10*3/uL 1.32-3.29 = 731-0) MONO x10^3 (test code 0.55 10*3/uL 0.33-0.92 = 742-7) EOS x10^3 (test code = 0.06 10*3/uL 0.03-0.39 711-2) BASO x10^3 (test code 0.03 10*3/uL 0.01-0.07 = 704-7) Lab Interpretation Abnormal (test code = 96604-3) [facility]ACT[facility] [id number] 23:16:59 Test Item Value Reference Range Interpretation Comments APTT Patient (test See_Comment [Automat ed code = 3173-2) message] The system which generated this result transmitted reference range : 23 - 38 Seconds . The reference range was not used to interpr et this result as normal/abnormal . ANTHONY (test code = ANTHONY) The [facility] patient population mean normal value for aPTT is 30 seconds. Lab Interpretation Normal (test code = 76473-2) [facility] CenterPROTHROMBIN TIME / [id number] 23:15:01 Test Item Value Reference Range Interpretation [...] tions. Lab Interpretation (test Abnormal code = 48239-7) [facility] CenterCOMP[facility]OL[facility] ([id number])2021-10-20 22:51:53 Test Item Value Reference Range Interpretation Comments NA (test code = 137 mmol/L 135-145 4694330093) K (test code = 5.1 mmol/L 3.5-5 H 2509469089) CL (test code = 105 mmol/L 98-108 9882008112) CO2 TOTAL (test code = 22 mmol/L 23-31 L 9163186128) AGAP (test code = 2-16 4974188910) BUN (test code = 27 mg/dL 7-23 H 6622250824) GLUCOSE (test code = 139 mg/dL 70-110 H 4223700449) CREATININE (test code = 1.23 mg/dL 0.5-1.04 H 3227598177) TOTAL BILI (test code = 0.1-1.1 L 3697941985) CALCIUM (test code = 8.8 mg/dL 8.6-10.6 6251820291) T PROTEIN (test code = 7.1 g/dL 6.3-8.2 5433517472) ALBUMIN (test code = 4.5 g/dL 3.5-5 5406016799) ALK PHOS (test code = 158 U/L 34-122 H 8399077710) ALTv (test code = 130 U/L 5-35 H 1742-6) AST(SGOT) (test code = 70 U/L 13-40 H 0109235584) eGFR (test code = mL/min/1.73m2 4976722052) ANTHONY (test code = ANTHONY) Association of [...] tests). Lab Interpretation Abnormal (test code = 85248-7) [facility] WITH [id number] 22:39:51 Test Item Value Reference Range Interpretation Comments WBC (test code = See_Comment [Automated 8790-2) message] The sy stem which generated this [...] (test code = 51.7 fL 39-49.9 H 97116-5) RDW-CV (test code = 15.5 % 12-15.5 788-0) PLT (test code = See_Comment [Automated 777-3) message] The sy stem which generated this result transmitted reference range : 166 - 358 10*3/ ?L. The reference r miky was not used to interpret this result as normal/abnormal . MPV (test code = 10.2 fL 9.5-12.9 13782-5) NRBC/100 WBC (test See_Comment [Automat ed code = 5341175593) message] The system which generated this result transmitted reference range : 0.0 - 10.0 /100 WBCs. The refer ence range was not u sed to interpret th is result as normal/abnormal . NRBC x10^3 (test code See_Comment [Auto mated = 5699459883) message] The s ystem which generated this result transmitted reference range : 10*3/?L. The reference range was not used to interpret this result as normal/abnormal . GRAN MAT (NEUT) % 83.6 % (test code = 770-8) IMM GRAN % (test code 0.60 % = 6477302778) LYMPH % (test code = 10.7 % 736-9) MONO % (test code = 5.0 % 5905-5) EOS % (test code = 0.0 % 713-8) BASO % (test code = 0.1 % 706-2) GRAN MAT x10^3(ANC) 8.64 10*3/uL 1.88-7.09 H (test code = 4750495142) IMM GRAN x10^3 (test 0.06 10*3/uL 0-0.06 code = 2269622094) LYMPH x10^3 (test code 1.11 10*3/uL 1.32-3.29 L = 731-0) MONO x10^3 (test code 0.52 10*3/uL 0.33-0.92 = 742-7) EOS x10^3 (test code = 0.03-0.39 L 711-2) BASO x10^3 (test code 0.01-0.07 = 704-7) Lab Interpretation Abnormal (test code = 81757-9) [facility]AC [facility] 21 + LACTIC [id number] 14:22:59 Test Item Value Reference Range Interpretation Comments PH (test code = 7.32-7.42 9420617867) PCO2 ZULEYMA (test code = See_Comment [Auto mated 5678157805) message] The sy stem which generated this result transmitted reference range : 41 - 51 mmHg. The reference range was not used to interpret this result as normal/abnormal . PO2 ZULEYMA (test code = See_Comment [Autom ated 5250282352) message] The sy stem which generated this result transmitted reference range : 25 - 40 mmHg. The reference range was not used to interpret this result as normal/abnormal . HCO3 ZULEYMA (test code = See_Comment L [Auto mated 8377458967) message] The sy stem which generated this result transmitted reference range : 24 - 28 mEq/L. The reference range was not used to interpret this result as normal/abnormal . AC VBE(BEAKER) (test mEq/L code = 0789877678) THB ZULEYMA (test code = 14.7 g/dL 12-16 2774009927) %O2HB ZULEYMA (test code = 50.1 % 52-63 L 8646216117) %COHB ZULEYMA (test code = 1.0 % 0-1.5 8516221972) %METHB ZULEYMA (test code = 0.3 % 0.4-1.5 L 4227348195) VOL%O2 ZULEYMA (test code = 10.3 % 6-12 9009250380) NA (test code = 139 mmol/L 135-145 3196278951) K+ (test code = 3.7 mmol/L 3.5-5 7276570098) AC CA IONZ (test code = 5.10 mg/dL 4.5-5.3 8619869589) GLUCOSE (test code = 92 mg/dL 70-110 3851738628) LACTIC ACID (test code 1.49 mmol/L 0.5-2.2 = 2589941573) Lab Interpretation Abnormal (test code = 84304-0) [facility] (NA, K, CL, CO2, GLUCOSE, BUN, CREATININE, CA)2020-12-12 11:05:50 Test Item Value Reference Range Interpretation Comments NA (test code = 133 mmol/L 135-145 L 6002992408) K (test code = 5.0 mmol/L 3.5-5.0 3470381357) CL (test code = 105 mmol/L 98-108 9631477666) CO2 TOTAL (test code = 24 mmol/L -31 8711778938) AGAP (test code = 2-16 9098499637) BUN (test code = 9 mg/dL 7-23 5498527845) GLUCOSE (test code = 93 mg/dL 70-110 5291736956) CREATININE (test code = 0.57 mg/dL 0.50-1.04 1742678966) CALCIUM (test code = 9.8 mg/dL 8.6-10.6 5827070703) eGFR (test code = mL/min/1.73m2 3909302585) ANTHONY (test code = ANTHONY) Association of [...] tests). Lab Interpretation Abnormal (test code = 12025-8) [facility]MAGN[facility]IUM2021-10-31 11:05:50 Test Item Value Reference Range Interpretation Comments MAGNESIUM (test code = 3156440475) 2.3 mg/dL 1.7-2.4 Lab Interpretation (test code = Normal 23406-7) [facility]PHOSPHORUS2021-10-31 11:05:30 Test Item Value Reference Range Interpretation Comments PHOSPHORUS (test code = 9767400645) 4.1 mg/dL 2.5-5.0 Lab Interpretation (test code = Normal 79101-0) [facility] CenterOSMOLALITY, SERUM OR [id number] 17:26:02 Test Item Value Reference Range Interpretation Comments OSMOLALITY (test code = See_Comment [Au tomated message] 6517544946) The system [employer] generated this result transmitted ref erence range: 278 - 30 5 mOsm/kg. The re ference range was not u sed to interpret this result as normal/abnor mal. Lab Interpretation (test Normal code = 45023-0) [facility] CenterVancomycin Random [id number] 15:46:31 Test Item Value Reference Range Interpretation Comments VANCO RANDOM (test code = 8.9 ug/mL 9789893539) [facility] (NA, K, CL, CO2, GLUCOSE, BUN, CREATININE, CA)2020-12-11 10:02:40 Test Item Value Reference Range Interpretation Comments NA (test code = 135 mmol/L 135-145 4979557162) K (test code = 4.7 mmol/L 3.5-5.0 8550165181) CL (test code = 107 mmol/L 98-108 6571913847) CO2 TOTAL (test code 24 mmol/L 23-31 = 4957527207) AGAP (test code = 2-16 5115034761) BUN (test code = 9 mg/dL 7-23 5221980242) GLUCOSE (test code = 98 mg/dL 70-110 1562849303) CREATININE (test code 0.62 mg/dL 0.50-1.04 = 6570359350) CALCIUM (test code = 9.5 mg/dL 8.6-10.6 0672310271) eGFR (test code = mL/min/1.73m2 3068988368) ANTHONY (test code = ANTHONY) Association of [...] or urine or abnormalities in imaging tests). [facility] WITH [id number] 09:45:31 Test Item Value Reference Range Interpretation [...] (test code = 55.5 fL 39.0-49.9 H 06860-8) RDW-CV (test code = 15.6 % 12.0-15.5 H 788-0) PLT (test code = See_Comment [Automated 777-3) message] The sy stem which generated this result transmitted reference range : 166 - 358 10*3/ ?L. The reference r miky was not used to interpret this result as normal/abnormal . MPV (test code = 11.5 fL 9.5-12.9 74096-8) NRBC/100 WBC (test See_Comment [Automat ed code = 3027354574) message] The system which generated this result transmitted reference range : 0.0 - 10.0 /100 WBCs. The refer ence range was not u sed to interpret th is result as normal/abnormal . NRBC x10^3 (test code See_Comment [Auto mated = 8798290582) message] The s ystem which generated this result transmitted reference range : 10*3/?L. The reference range was not used to interpret this result as normal/abnormal . GRAN MAT (NEUT) % 44.2 % (test code = 770-8) IMM GRAN % (test code 5.40 % = 9889451184) LYMPH % (test code = 35.6 % 736-9) MONO % (test code = 14.1 % 5905-5) EOS % (test code = 0.3 % 713-8) BASO % (test code = 0.4 % 706-2) GRAN MAT x10^3(ANC) 2.99 10*3/uL 1.88-7.09 (test code = 9517196461) IMM GRAN x10^3 (test 0.37 10*3/uL 0.00-0.06 H code = 2377127439) LYMPH x10^3 (test code 2.42 10*3/uL 1.32-3.29 = 731-0) MONO x10^3 (test code 0.96 10*3/uL 0.33-0.92 H = 742-7) EOS x10^3 (test code = <0.03 0.03-0.39 L 711-2) BASO x10^3 (test code 0.03 10*3/uL 0.01-0.07 = 704-7) Lab Interpretation Abnormal (test code = 43490-5) [facility]2021-10-30 09:37:24 Test Item Value Reference Range Interpretation Comments MAGNESIUM (test code = 2561996262) 2.3 mg/dL 1.7-2.4 Lab Interpretation (test code = Normal 93132-3) [facility]PH[facility]2021[facility] 09:37:04 Test Item Value Reference Range Interpretation Comments PHOSPHORUS (test code = 9865495785) 2.8 mg/dL 2.5-5.0 Lab Interpretation (test code = Normal 61246-5) [facility] CenterURIC [id number] 09:36:44 Test Item Value Reference Range Interpretation Comments URIC ACID (test code = 2716202003) 3.2 mg/dL 2.9-6.0 Lab Interpretation (test code = Normal 11494-0) [facility] (NA, K, CL, CO2, GLUCOSE, BUN, CREATININE, CA)2020-12-10 20:08:36 Test Item Value Reference Range Interpretation Comments NA (test code = 126 mmol/L 135-145 L 2358638466) K (test code = 3.7 mmol/L 3.5-5.0 7628538420) CL (test code = 102 mmol/L 98-108 1846587268) CO2 TOTAL (test code = 21 mmol/L 23-31 L 6568515131) AGAP (test code = 2-16 0277334646) BUN (test code = 9 mg/dL 7-23 9398082144) GLUCOSE (test code = 116 mg/dL 70-110 H 3859598546) CREATININE (test code = 0.72 mg/dL 0.50-1.04 7555748323) CALCIUM (test code = 8.9 mg/dL 8.6-10.6 3447389659) eGFR (test code = mL/min/1.73m2 1142757846) ANTHONY (test code = ANTHONY) Association of [...] tests). Lab Interpretation Abnormal (test code = 76342-7) [facility] CenterBLOOD CULTURE [id number] 20:01:33 Test Item Value Reference Range Interpretation Comments Blood Culture-Aerobic No organisms No growth Previo us (test code = 47270-6) isolated prelim inary verified result was Culture [...] Culture-Anaerobic isolated preliminar y (test code = 01061-5) verifi ed result was Culture In Progress [...] CDT Lab Interpretation Normal (test code = 90729-8) [facility]BL[facility] [id number] 20:01:33 Test Item Value Reference Range Interpretation Comments Blood Culture-Aerobic No organisms No growth Previo us (test code = 80064-4) isolated prelim inary verified result was Culture [...] Culture-Anaerobic isolated preliminar y (test code = 42127-3) verifi ed result was Culture In Progress [...] CDT Lab Interpretation Normal (test code = 60714-0) [facility]PH[facility]2021-[facility]-29 19:00:05 Test Item Value Reference Range Interpretation Comments PHOSPHORUS (test code = 0706739507) 2.5 mg/dL 2.5-5.0 Lab Interpretation (test code = Normal 16328-2) [facility] CenterCBC WITH [id number] 18:49:57 Test Item Value Reference Range Interpretation Comments WBC (test code = See_Comment [Automated 4690-2) message] The sy stem which generated this result transmitted reference range : 4.30 - 11.10 10*3/?L. The reference range was not used to interpret this result as normal/abnormal . RBC (test code = See_Comment L [Automated 139-8) message] The sy stem which generated this [...] (test code = 52.4 fL 39.0-49.9 H 73397-7) RDW-CV (test code = 15.2 % 12.0-15.5 788-0) PLT (test code = See_Comment L [Automated 777-3) message] The sy stem which generated this result transmitted reference range : 166 - 358 10*3/ ?L. The reference r miky was not used to interpret this result as normal/abnormal . MPV (test code = 10.8 fL 9.5-12.9 68148-9) NRBC/100 WBC (test See_Comment [Automat ed code = 9727533142) message] The system which generated this result transmitted reference range : 0.0 - 10.0 /100 WBCs. The refer ence range was not u sed to interpret th is result as normal/abnormal . NRBC x10^3 (test code See_Comment [Auto mated = 0654116946) message] The s ystem which generated this result transmitted reference range : 10*3/?L. The reference range was not used to interpret this result as normal/abnormal . GRAN MAT (NEUT) % 47.2 % (test code = 770-8) IMM GRAN % (test code 5.80 % = 7093791610) LYMPH % (test code = 29.2 % 736-9) MONO % (test code = 17.1 % 5905-5) EOS % (test code = 0.4 % 713-8) BASO % (test code = 0.3 % 706-2) GRAN MAT x10^3(ANC) 3.14 10*3/uL 1.88-7.09 (test code = 5836912677) IMM GRAN x10^3 (test 0.39 10*3/uL 0.00-0.06 H code = 2707504311) LYMPH x10^3 (test code 1.95 10*3/uL 1.32-3.29 = 731-0) MONO x10^3 (test code 1.14 10*3/uL 0.33-0.92 H = 742-7) EOS x10^3 (test code = 0.03 10*3/uL 0.03-0.39 711-2) BASO x10^3 (test code <0.03 0.01-0.07 = 704-7) POLYCHROMASIA (test 2+ See_Comment [Automa karly code = 30759-6) message] The system which generated this result transmitted reference range : 2+. The referen ce range was not u sed to interpret th is result as normal/abnormal . BANDS (test code = Increased A 9736975579) Lab Interpretation Abnormal (test code = 76058-9) [facility]Vancom[facility] Trough Level - Draw random trough at [id number] 16:37:29 Test Item Value Reference Range Interpretation Comments VANCO TROUGH (test code 19.4 ug/mL 10.0-20.0 = 1992101839) ANTHONY (test code = ANTHONY) Toxic Range: ?>20 ug/mL 15-20 ug/mL is recommended for severe infection or when Vancomycin RAHEEM is greater than or equal to 2. Lab Interpretation (test Normal code = 92574-3) [facility]MAG[facility]2021-[facility]-29 11:49:21 Test Item Value Reference Range Interpretation Comments MAGNESIUM (test code = 0754104687) 2.1 mg/dL 1.7-2.4 Lab Interpretation (test code = Normal 90624-3) [facility] CenterBASIC MET[facility]OLIC PANEL (NA, K, CL, CO2, GLUCOSE, BUN, CREATININE, CA)2020-12-10 11:49:05 Test Item Value Reference Range Interpretation Comments NA (test code = 129 mmol/L 135-145 L 0011795916) K (test code = 3.0 mmol/L 3.5-5.0 L 2102154743) CL (test code = 103 mmol/L 98-108 3286256094) CO2 TOTAL (test code = 25 mmol/L 23-31 3992524486) AGAP (test code = 2-16 L 3580012662) BUN (test code = 10 mg/dL 7- 2366650007) GLUCOSE (test code = 123 mg/dL 70-110 H 5472466084) CREATININE (test code = 0.84 mg/dL 0.50-1.04 2221775247) CALCIUM (test code = 8.9 mg/dL 8.6-10.6 5501076653) eGFR (test code = mL/min/1.73m2 0426082467) ANTHONY (test code = ANTHONY) Association of [...] tests). Lab Interpretation Abnormal (test code = 25520-4) [facility]PH[facility]2021-[facility]-29 11:48:59 Test Item Value Reference Range Interpretation Comments PHOSPHORUS (test code = 6864028956) 1.0 mg/dL 2.5-5.0 L Lab Interpretation (test code = Abnormal 13128-2) [facility] (NA, K, CL, CO2, GLUCOSE, BUN, CREATININE, CA)2020-12-10 02:21:51 Test Item Value Reference Range Interpretation Comments NA (test code = 130 mmol/L 135-145 L 2616626156) K (test code = 3.6 mmol/L 3.5-5.0 2850081118) CL (test code = 106 mmol/L 98-108 1715292275) CO2 TOTAL (test code = 21 mmol/L 23-31 L 5140927197) AGAP (test code = 2-16 7346861576) BUN (test code = 9 mg/dL 7-23 8971446733) GLUCOSE (test code = 142 mg/dL 70-110 H 4849814197) CREATININE (test code = 0.59 mg/dL 0.50-1.04 2940034829) CALCIUM (test code = 8.4 mg/dL 8.6-10.6 L 7633627427) eGFR (test code = mL/min/1.73m2 7170383776) ANTHONY (test code = ANTHONY) Association of [...] tests). Lab Interpretation Abnormal (test code = 02933-0) [facility] CenterVancomycin Trough Level - Draw no more than 60 minutes before the 1330 dose.2020-12-09 20:29:37 Test Item Value Reference Range Interpretation Comments VANCO TROUGH (test code 20.9 ug/mL 10.0-20.0 H = 0880648589) ANTHONY (test code = ANTHONY) Toxic Range: ?>20 ug/mL 15-20 ug/mL is recommended for severe infection or when Vancomycin RAHEEM is greater than or equal to 2. Lab Interpretation (test Abnormal code = 61897-3) [facility] (NA, K, CL, CO2, GLUCOSE, BUN, CREATININE, CA)2020-12-09 11:48:35 Test Item Value Reference Range Interpretation Comments NA (test code = 129 mmol/L 135-145 L 4842672522) K (test code = 2.8 mmol/L 3.5-5.0 LL 6341163164) CL (test code = 104 mmol/L 98-108 0795310097) CO2 TOTAL (test code = 20 mmol/L 23-31 L 2116480225) AGAP (test code = 2-16 7106108802) BUN (test code = 10 mg/dL 7-23 9128048418) GLUCOSE (test code = 120 mg/dL 70-110 H 0313298020) CREATININE (test code = 0.68 mg/dL 0.50-1.04 8276793445) CALCIUM (test code = 7.9 mg/dL 8.6-10.6 L 4247314291) eGFR (test code = mL/min/1.73m2 9139655404) ANTHONY (test code = ANTHONY) Association of [...] tests). Lab Interpretation Abnormal (test code = 54333-5) [facility] Test Item Value Reference Range Interpretation Comments MAGNESIUM (test code = 2161632725) 2.2 mg/dL 1.7-2.4 Lab Interpretation (test code = Normal 43839-9) [facility] 11[facility]46:48 Test Item Value Reference Range Interpretation Comments PHOSPHORUS (test code = 4181375276) 2.4 mg/dL 2.5-5.0 L Lab Interpretation (test code = Abnormal 50651-8) [facility] (NA, K, CL, CO2, GLUCOSE, BUN, CREATININE, CA)2020-12-08 12:06:15 Test Item Value Reference Range Interpretation Comments NA (test code = 130 mmol/L 135-145 L 5301259481) K (test code = 2.8 mmol/L 3.5-5.0 LL 0129889254) CL (test code = 104 mmol/L 98-108 4001212209) CO2 TOTAL (test code = 19 mmol/L 23-31 L 3096050374) AGAP (test code = 2-16 6750169457) BUN (test code = 9 mg/dL 7-23 9015458893) GLUCOSE (test code = 114 mg/dL 70-110 H 7585397692) CREATININE (test code = 0.72 mg/dL 0.50-1.04 9460960974) CALCIUM (test code = 7.9 mg/dL 8.6-10.6 L 6916083897) eGFR (test code = mL/min/1.73m2 0410231253) ANTHONY (test code = ANTHONY) Association of [...] tests). Lab Interpretation Abnormal (test code = 28726-3) [facility] 11:58:12 Test Item Value Reference Range Interpretation Comments MAGNESIUM (test code = 8922748023) 1.9 mg/dL 1.7-2.4 Lab Interpretation (test code = Normal 82478-0) [facility]2021[facility] 11:57:52 Test Item Value Reference Range Interpretation Comments PHOSPHORUS (test code = 3267030264) 2.7 mg/dL 2.5-5.0 Lab Interpretation (test code = Normal 19652-3) [facility] CenterVan[facility] - Draw no more than 60 minutes before the 0130 dose.2020-12-08 07:49:28 Test Item Value Reference Range Interpretation Comments VANCO TROUGH (test code 18.4 ug/mL 10.0-20.0 = 4979866662) ANTHONY (test code = ANTHONY) Toxic Range: ?>20 ug/mL 15-20 ug/mL is recommended for severe infection or when Vancomycin RAHEEM is greater than or equal to 2. Lab Interpretation (test Normal code = 82263-2) [facility] WITH [id number] 13:32:28 Test Item Value Reference Range Interpretation Comments WBC (test code = See_Comment [Automated 2290-2) message] The sy stem which generated this result transmitted reference range : 4.30 - 11.10 10*3/?L. The reference range was not used to interpret this result as normal/abnormal . RBC (test code = See_Comment L [Automated 389-8) message] The sy stem which generated this [...] (test code = 50.9 fL 39.0-49.9 H 76354-6) RDW-CV (test code = 15.0 % 12.0-15.5 788-0) PLT (test code = See_Comment [Automated 947-3) message] The sy stem which generated this result transmitted reference range : 166 - 358 10*3/ ?L. The reference r miky was not used to interpret this result as normal/abnormal . MPV (test code = 11.3 fL 9.5-12.9 05214-8) NRBC/100 WBC (test See_Comment [Automat ed code = 6154788247) message] The system which generated this result transmitted reference range : 0.0 - 10.0 /100 WBCs. The refer ence range was not u sed to interpret th is result as normal/abnormal . NRBC x10^3 (test code See_Comment [Auto mated = 4985587239) message] The s ystem which generated this result transmitted reference range : 10*3/?L. The reference range was not used to interpret this result as normal/abnormal . GRAN MAT (NEUT) % 57.6 % (test code = 770-8) IMM GRAN % (test code 4.60 % = 3884716805) LYMPH % (test code = 27.4 % 736-9) MONO % (test code = 9.9 % 5905-5) EOS % (test code = 0.2 % 713-8) BASO % (test code = 0.3 % 706-2) GRAN MAT x10^3(ANC) 3.79 10*3/uL 1.88-7.09 (test code = 5175568761) IMM GRAN x10^3 (test 0.30 10*3/uL 0.00-0.06 H code = 4483772531) LYMPH x10^3 (test code 1.80 10*3/uL 1.32-3.29 = 731-0) MONO x10^3 (test code 0.65 10*3/uL 0.33-0.92 = 742-7) EOS x10^3 (test code = <0.03 0.03-0.39 L 711-2) BASO x10^3 (test code <0.03 0.01-0.07 = 704-7) SCHISTOCYTES (test 1+ A code = 800-3) BANDS (test code = Increased A 9120733735) Lab Interpretation Abnormal (test code = 11086-3) [facility] Test Item Value Reference Range Interpretation Comments MAGNESIUM (test code = 4061774974) 2.1 mg/dL 1.7-2.4 Lab Interpretation (test code = Normal 86422-2) [facility] METABOLIC PANEL (NA, K, CL, CO2, GLUCOSE, BUN, CREATININE, CA)2020-12-07 11:15:11 Test Item Value Reference Range Interpretation Comments NA (test code = 133 mmol/L 135-145 L 9727848070) K (test code = 3.2 mmol/L 3.5-5.0 L 7120787563) CL (test code = 106 mmol/L 98-108 0078858400) CO2 TOTAL (test code = 18 mmol/L 23-31 L 2649772260) AGAP (test code = 2-16 3219696063) BUN (test code = 9 mg/dL 7-23 0007017422) GLUCOSE (test code = 106 mg/dL 70-110 9151518386) CREATININE (test code = 0.64 mg/dL 0.50-1.04 5483974119) CALCIUM (test code = 8.2 mg/dL 8.6-10.6 L 0575201527) eGFR (test code = mL/min/1.73m2 8115959669) ANTHONY (test code = ANTHONY) Association of [...] tests). Lab Interpretation Abnormal (test code = 65841-9) [facility] METABOLIC PANEL (NA, K, CL, CO2, GLUCOSE, BUN, CREATININE, CA)2020-12-07 03:01:05 Test Item Value Reference Range Interpretation Comments NA (test code = 130 mmol/L 135-145 L 6491190514) K (test code = 3.4 mmol/L 3.5-5.0 L 4873356318) CL (test code = 105 mmol/L 98-108 7980209258) CO2 TOTAL (test code = 20 mmol/L 23-31 L 1790252335) AGAP (test code = 2-16 9904454093) BUN (test code = 10 mg/dL 7-23 9072669628) GLUCOSE (test code = 117 mg/dL 70-110 H 3036139155) CREATININE (test code = 0.69 mg/dL 0.50-1.04 7871098633) CALCIUM (test code = 7.9 mg/dL 8.6-10.6 L 6622864351) eGFR (test code = mL/min/1.73m2 3931695909) ANTHONY (test code = ANTHONY) Association of [...] tests). Lab Interpretation Abnormal (test code = 70545-0) [facility] Metabolic Panel (NA, K, CL, CO2, GLUCOSE, BUN, CREATININE, CA)2020-12-06 17:09:25 Test Item Value Reference Range Interpretation Comments NA (test code = 126 mmol/L 135-145 L 1129120132) K (test code = 2.9 mmol/L 3.5-5.0 LL 3492635530) CL (test code = 104 mmol/L 98-108 0070006115) CO2 TOTAL (test code = 13 mmol/L 23-31 L 2805448688) AGAP (test code = 2-16 3913503679) BUN (test code = 11 mg/dL 7-23 7400469948) GLUCOSE (test code = 147 mg/dL 70-110 H 2691030260) CREATININE (test code = 0.80 mg/dL 0.50-1.04 1067484133) CALCIUM (test code = 7.9 mg/dL 8.6-10.6 L 1107445970) eGFR (test code = mL/min/1.73m2 8101525316) ANTHONY (test code = ANTHONY) Association of [...] tests). Lab Interpretation Abnormal (test code = 55850-1) [facility] CenterMagnesium [id number] 17:05:09 Test Item Value Reference Range Interpretation Comments MAGNESIUM (test code = 0925459941) 2.3 mg/dL 1.7-2.4 Lab Interpretation (test code = Normal 04797-2) [facility] with [id number] 16:52:56 Test Item Value Reference Range Interpretation Comments WBC (test code = See_Comment [Automated 8690-2) message] The sy stem which generated this result transmitted reference range : 4.30 - 11.10 10*3/?L. The reference range was not used to interpret this result as normal/abnormal . RBC (test code = See_Comment L [Automated 223-8) message] The sy stem which generated this [...] (test code = 50.9 fL 39.0-49.9 H 64460-7) RDW-CV (test code = 15.0 % 12.0-15.5 788-0) PLT (test code = See_Comment [Automated 777-3) message] The sy stem which generated this result transmitted reference range : 166 - 358 10*3/ ?L. The reference r miky was not used to interpret this result as normal/abnormal . MPV (test code = 11.4 fL 9.5-12.9 53178-2) NRBC/100 WBC (test See_Comment [Automat ed code = 2282256562) message] The system which generated this result transmitted reference range : 0.0 - 10.0 /100 WBCs. The refer ence range was not u sed to interpret th is result as normal/abnormal . NRBC x10^3 (test code <0.01 See_Comment [Auto mated = 6815924413) message] The s ystem which generated this result transmitted reference range : 10*3/?L. The reference range was not used to interpret this result as normal/abnormal . GRAN MAT (NEUT) % 53.9 % (test code = 770-8) IMM GRAN % (test code 3.10 % = 4577299253) LYMPH % (test code = 30.8 % 736-9) MONO % (test code = 11.3 % 5905-5) EOS % (test code = 0.3 % 713-8) BASO % (test code = 0.6 % 706-2) GRAN MAT x10^3(ANC) 3.48 10*3/uL 1.88-7.09 (test code = 7069926054) IMM GRAN x10^3 (test 0.20 10*3/uL 0.00-0.06 H code = 4744520445) LYMPH x10^3 (test code 1.99 10*3/uL 1.32-3.29 = 731-0) MONO x10^3 (test code 0.73 10*3/uL 0.33-0.92 = 742-7) EOS x10^3 (test code = <0.03 0.03-0.39 L 711-2) BASO x10^3 (test code 0.04 10*3/uL 0.01-0.07 = 704-7) BANDS (test code = Increased A 8229185831) Lab Interpretation Abnormal (test code = 92553-4) [facility] 00:30:48 Test Item Value Reference Range Interpretation Comments MAGNESIUM (test code = 5782181416) 1.4 mg/dL 1.7-2.4 L Lab Interpretation (test code = Abnormal 49140-0) [facility] METABOLIC PANEL (NA, K, CL, CO2, GLUCOSE, BUN, CREATININE, CA)2020-12-06 00:00:55 Test Item Value Reference Range Interpretation Comments NA (test code = 135 mmol/L 135-145 4891835671) K (test code = 2.3 mmol/L 3.5-5.0 LL 6228889230) CL (test code = 116 mmol/L 98-108 H 7807671983) CO2 TOTAL (test code = 14 mmol/L 23-31 L 2833129689) AGAP (test code = 2-16 0350247678) BUN (test code = 16 mg/dL 7-23 4610587158) GLUCOSE (test code = 98 mg/dL 70-110 9253443797) CREATININE (test code = 0.85 mg/dL 0.50-1.04 1584757120) CALCIUM (test code = 5.7 mg/dL 8.6-10.6 LL 9776270130) eGFR (test code = mL/min/1.73m2 8506497824) ANTHONY (test code = ANTHONY) Association of [...] tests). Lab Interpretation Abnormal (test code = 72082-7) [facility] CenterTHYROID STIMULATING [id number] 20:54:58 Test Item Value Reference Range Interpretation Comments TSH (test code = See_Comment [Automated message] 2448179912) The system [employer] generated this result transmitted ref erence range: 0.45 - 4 .70 mIU/L. The refe rence range was not u sed to interpret this result as normal/abnor mal. Lab Interpretation (test Normal code = 96390-1) [facility] CenterLIPASE2021-[facility] 20:23:21 Test Item Value Reference Range Interpretation Comments LIPASE (test code = 0300849307) 130 U/L 0-220 Lab Interpretation (test code = Normal 35296-7) [facility] CenterCBC WITH [id number] 19:46:50 Test Item Value Reference Range Interpretation Comments WBC (test code = See_Comment [Automated 5790-2) message] The system which generated this result transmitted reference range : 4.30 - 11.10 10*3/?L. The reference range was not used to interpret this result as normal/abnormal . RBC (test code = See_Comment L [Automated 458-8) message] The system which generated this result [...] RDW-SD (test code = 49.2 fL 39.0-49.9 67449-9) RDW-CV (test code = 14.8 % 12.0-15.5 788-0) PLT (test code = See_Comment [Automated 777-3) message] The system which generated this result transmitted reference range : 166 - 358 10*3/?L. The reference range was not used to interpret this result as normal/abnormal . MPV (test code = 11.9 fL 9.5-12.9 64132-0) NRBC/100 WBC (test See_Comment [Automat ed code = 1645195416) message] The system which generated this result transmitted reference range : 0.0 - 10.0 /100 WBCs. The reference range was not used to interpret this result as normal/abnormal . NRBC x10^3 (test code See_Comment [Auto mated = 9630470399) message] The system which generated this result transmitted reference range : 10*3/?L. The reference range was not used to interpret this result as normal/abnormal . GRAN MAT (NEUT) % 45.3 % (test code = 770-8) IMM GRAN % (test code 1.60 % = 8058456376) LYMPH % (test code = 41.5 % 736-9) MONO % (test code = 10.4 % 5905-5) EOS % (test code = 0.6 % 713-8) BASO % (test code = 0.6 % 706-2) GRAN MAT x10^3(ANC) 3.18 10*3/uL 1.88-7.09 (test code = 7684456043) IMM GRAN x10^3 (test 0.11 10*3/uL 0.00-0.06 H code = 6934111937) LYMPH x10^3 (test 2.91 10*3/uL 1.32-3.29 code [...] BANDS (test code = MARKED INCREASED A 1569015574) LG GRAN LYMPHS (test Rare Rare code = 6236074271) REACT LYMPHS (test Rare code = 1078426138) TOXIC CHANGES (test Present A code = 803-7) Lab Interpretation Abnormal (test code = 04760-9) [facility]PO[facility]SE([facility] >30DAYS)2020-12-05 19:44:00 Test Item Value Reference Range Interpretation Comments POCT Glu (age>30days) (test code = 154 mg/dL 70-110 A 3342) Lab Interpretation (test code = Abnormal 81567-8) [facility] CenterTroponin [id number] 19:21:17 Test Item Value Reference Interpretation Comments Range TROPONIN I (test 0.008 ng/mL See_Comment [Automated code = 8233179419) message] The system which generated this result [...] biotin. Lab Interpretation Normal (test code = 87072-5) [facility]. METABOLIC PANEL ([id number])2020-12-05 19:10:58 Test Item Value Reference Range Interpretation Comments NA (test code = 122 mmol/L 135-145 L 8308461326) K (test code = 3.2 mmol/L 3.5-5.0 L 3815142837) CL (test code = 97 mmol/L 98-108 L 9524453299) CO2 TOTAL (test code = 16 mmol/L 23-31 L 2073729216) AGAP (test code = 2-16 7206831784) BUN (test code = 21 mg/dL 7-23 7123123552) GLUCOSE (test code = 154 mg/dL 70-110 H 0777322417) CREATININE (test code = 1.40 mg/dL 0.50-1.04 H 7691603709) TOTAL BILI (test code = 0.6 mg/dL 0.1-1.9 7073487913) CALCIUM (test code = 8.6 mg/dL 8.6-10.6 0104680929) T PROTEIN (test code = 5.7 g/dL 6.3-8.2 L 9643588239) ALBUMIN (test code = 3.0 g/dL 3.5-5.0 L 1457876553) ALK PHOS (test code = 187 U/L 34-122 H 2267086038) ALTv (test code = 43 U/L 5-35 H 1742-6) AST(SGOT) (test code = 66 U/L 13-40 H 1407788595) eGFR (test code = mL/min/1.73m2 9206449455) ANTHONY (test code = ANTHONY) Association of [...] tests). Lab Interpretation Abnormal (test code = 64496-8) [facility]MAG[facility]UM20[facility] 19:10:58 Test Item Value Reference Range Interpretation Comments MAGNESIUM (test code = 6333592597) 1.8 mg/dL 1.7-2.4 Lab Interpretation (test code = Normal 80384-0) [facility] CenterPOCT [id number] 18:53:00 Test Item Value Reference Range Interpretation Comments POCT PREG (test code = 1605) negative POCT PREG LOT # (test code = 3575) [id number] POCT PREG TEST DATE (test 2022-02-11 code = 3576) Lab Interpretation (test code = Normal 54584-9) [facility] CenterANTI-SSA(RO)2020-08-10 17:06:47 Test Item Value Reference Range Interpretation Comments ANTI-SSA(RO) (test code = Negative Negative 3711864924) ANTHONY (test code = ANTHONY) Positive - Antibody detected.Negative - No antibody detected. Lab Interpretation (test Normal code = 62312-4) [facility] CenterANTI-SSB(LA)2020-08-10 17:06:47 Test Item Value Reference Range Interpretation Comments Anti-SSB(LA) (test code = Negative Negative 0898093123) ANTHONY (test code = ANTHONY) Positive - Antibody detected.Negative - No antibody detected. Lab Interpretation (test Normal code = 67439-2) [facility] CenterRHEUMATOID [id number] 14:42:16 Test Item Value Reference Range Interpretation Comments RF (test code = <20 See_Comment [Automated message] 6715831432) The system [employer] ([employer]) generated this result transmitted ref erence range: <20 IU/m L. The reference range was not used to int erpret this result as normal/abnormal . Lab Interpretation (test Normal code = 76663-8) [facility]-REACTIVE [id number] 14:41:04 Test Item Value Reference Range Interpretation Comments CRP (test code = 5008674479) 0.3 mg/dL <0.8 Lab Interpretation (test code = Normal 10616-5) [facility] OR LEXX ONLY - [id number] 09:50:30 Test Item Value Reference Range Interpretation Comments RPR (Qualitative) (test code = Nonreactive Nonreactive 64064-9) Lab Interpretation (test code = Normal 43306-2) [facility] CenterHIV 1/2 AG-AB WITH [id number] 20:09:42 Test Item Value Reference Range Interpretation Comments HIV Negative Negative Semi-quantitative (test code = 60968-1) ANTHONY (test code = Non-reactive for HIV-1 ANTHONY) antigen and HIV-1/HIV-2 antibodies. ?No laboratory evidence of HIV infection. ?Repeat in 2-4 weeks if acute HIV infection is suspected. [facility] CenterSEDIMENTATION [id number] 19:49:09 Test Item Value Reference Range Interpretation Comments ESR (test code = See_Comment H [Automated message] 1544398391) The system [employer] ([employer]) generated this result transmitted ref erence range: 0 - 20 m m/HR. The reference r miky was not used to interpret this result as normal/abnor mal. Lab Interpretation (test Abnormal code = 86559-5) [facility] CenterCOM. METABOLIC PANEL (10347)2020-08-09 19:29:16 Test Item Value Reference Range Interpretation Comments NA (test code = 133 mmol/L 135-145 L 2450521273) K (test code = 4.4 mmol/L 3.5-5.0 7180798472) CL (test code = 97 mmol/L 98-108 L 7416983413) CO2 TOTAL (test code = 24 mmol/L 23-31 3696178126) AGAP (test code = 2-16 0901390486) BUN (test code = 21 mg/dL 7-23 4654860161) GLUCOSE (test code = 154 mg/dL 70-110 H 4889869113) CREATININE (test code = 0.86 mg/dL 0.50-1.04 6862087941) TOTAL BILI (test code = 0.5 mg/dL 0.1-1.4 1314085777) CALCIUM (test code = 10.0 mg/dL 8.6-10.6 1032677756) T PROTEIN (test code = 8.0 g/dL 6.3-8.2 1241324105) ALBUMIN (test code = 5.1 g/dL 3.5-5.0 H 8580214295) ALK PHOS (test code = 85 U/L 34-122 9454945930) ALTv (test code = 36 U/L 5-35 H 1742-6) AST(SGOT) (test code = 24 U/L 13-40 3212081048) eGFR (test code = mL/min/1.73m2 4763325140) ANTHONY (test code = ANTHONY) Association of [...] tests). Lab Interpretation Abnormal (test code = 38300-4) [facility] CenterURINALYSIS2021-06-28 18:21:29 Test Item Value Reference Range Interpretation Comments APPEARANCE (test code = Clear Clear 8979637444) COLOR (test code = Yellow Yellow 3857834287) PH (test code = 4.8-8.0 0203273741) SP GRAVITY (test code = 1.003-1.030 6438969756) GLU U QUAL (test code = Normal Normal 9899938134) BLOOD (test code = Negative Negative 1920780258) KETONES (test code = Negative Negative 4993453483) PROTEIN (test code = Negative Negative 2887-8) UROBILIN (test code = Normal Normal 0527061178) BILIRUBIN (test code = Negative Negative 5372731943) NITRITE (test code = Negative Negative 9341408549) LEUK MURRAY (test code = Negative Negative 0311458102) RBC/HPF (test code = <1 See_Comment [Autom ated message] 9964551421) The system [employer] ([employer]) generated this result transmitted ref erence range: 0 - 3 HP F. The reference range was not used to int erpret this result as normal/abnormal . WBC/HPF (test code = See_Comment [Autom ated message] 1613356119) The system [employer] ([employer]) generated this result transmitted ref erence range: 0 - 5 HP F. The reference range was not used to int erpret this result as normal/abnormal . BACTERIA (test code = Negative Negative 6034454330) MUCOUS (test code = Slight Negative LPF A 6110517622) SQ EPITH (test code = <1 HPF 6666666714) Lab Interpretation (test Abnormal code = 82969-7) [facility] CenterURINALYSIS2021-[facility]-28 18:21:29 Test Item Value Reference Range Interpretation Comments APPEARANCE (test code = Clear Clear 8493166010) COLOR (test code = Yellow Yellow 3105032331) PH (test code = 4.8-8.0 7181810033) SP GRAVITY (test code = 1.003-1.030 4891291284) GLU U QUAL (test code = Normal Normal 2112786624) BLOOD (test code = Negative Negative 2604470662) KETONES (test code = Negative Negative 1802901825) PROTEIN (test code = Negative Negative 2887-8) UROBILIN (test code = Normal Normal 1280044446) BILIRUBIN (test code = Negative Negative 1549296002) NITRITE (test code = Negative Negative 2586385758) LEUK MURRYA (test code = Negative Negative 0219531607) RBC/HPF (test code = <1 See_Comment [Autom ated message] 4378268908) The system [employer] ([employer]) generated this result transmitted ref erence range: 0 - 3 HP F. The reference range was not used to int erpret this result as normal/abnormal . WBC/HPF (test code = See_Comment [Autom ated message] 5317794690) The system [employer] ([employer]) generated this result transmitted ref erence range: 0 - 5 HP F. The reference range was not used to int erpret this result as normal/abnormal . BACTERIA (test code = Negative Negative 6033485149) MUCOUS (test code = Slight Negative LPF A 8917839673) SQ EPITH (test code = <1 HPF 7800378901) Lab Interpretation (test Abnormal code = 35333-9) [facility] WITH [id number] 17:36:57 Test Item Value Reference Range Interpretation Comments WBC (test code = See_Comment [Automated 9090-2) message] The sy stem which generated this result transmitted reference range : 4.30 - 11.10 10*3/?L. The reference range was not used to interpret this result as normal/abnormal . RBC (test code = See_Comment L [Automated 729-8) message] The sy stem which generated this [...] RDW-SD (test code = 47.8 fL 39.0-49.9 54091-3) RDW-CV (test code = 13.4 % 12.0-15.5 788-0) PLT (test code = See_Comment [Automated 777-3) message] The sy stem which generated this result transmitted reference range : 166 - 358 10*3/ ?L. The reference r miky was not used to interpret this result as normal/abnormal . MPV (test code = 9.4 fL 9.5-12.9 L 54385-2) NRBC/100 WBC (test See_Comment [Automat ed code = 9397950868) message] The system which generated this result transmitted reference range : 0.0 - 10.0 /100 WBCs. The refer ence range was not u sed to interpret th is result as normal/abnormal . NRBC x10^3 (test code <0.01 See_Comment [Auto mated = 7331663950) message] The s ystem which generated this result transmitted reference range : 10*3/?L. The reference range was not used to interpret this result as normal/abnormal . GRAN MAT (NEUT) % 80.8 % (test code = 770-8) IMM GRAN % (test code 1.90 % = 3744530684) LYMPH % (test code = 15.0 % 736-9) MONO % (test code = 2.1 % 5905-5) EOS % (test code = 0.1 % 713-8) BASO % (test code = 0.1 % 706-2) GRAN MAT x10^3(ANC) 6.79 10*3/uL 1.88-7.09 (test code = 8995271810) IMM GRAN x10^3 (test 0.16 10*3/uL 0.00-0.06 H code = 0089295594) LYMPH x10^3 (test code 1.26 10*3/uL 1.32-3.29 L = 731-0) MONO x10^3 (test code 0.18 10*3/uL 0.33-0.92 L = 742-7) EOS x10^3 (test code = <0.03 0.03-0.39 L 711-2) BASO x10^3 (test code <0.03 0.01-0.07 = 704-7) Lab Interpretation Abnormal (test code = 23532-9) [facility] WITH [id number] 17:36:57 Test Item Value Reference Range Interpretation Comments WBC (test code = See_Comment [Automated 7090-2) message] The sy stem which generated this result transmitted reference range : 4.30 - 11.10 10*3/?L. The reference range was not used to interpret this result as normal/abnormal . RBC (test code = See_Comment L [Automated 109-8) message] The sy stem which generated this [...] RDW-SD (test code = 47.8 fL 39.0-49.9 40278-5) RDW-CV (test code = 13.4 % 12.0-15.5 788-0) PLT (test code = See_Comment [Automated 777-3) message] The sy stem which generated this result transmitted reference range : 166 - 358 10*3/ ?L. The reference r miky was not used to interpret this result as normal/abnormal . MPV (test code = 9.4 fL 9.5-12.9 L 49690-2) NRBC/100 WBC (test See_Comment [Automat ed code = 6514701987) message] The system which generated this result transmitted reference range : 0.0 - 10.0 /100 WBCs. The refer ence range was not u sed to interpret th is result as normal/abnormal . NRBC x10^3 (test code <0.01 See_Comment [Auto mated = 2566220697) message] The s ystem which generated this result transmitted reference range : 10*3/?L. The reference range was not used to interpret this result as normal/abnormal . GRAN MAT (NEUT) % 80.8 % (test code = 770-8) IMM GRAN % (test code 1.90 % = 5897453933) LYMPH % (test code = 15.0 % 736-9) MONO % (test code = 2.1 % 5905-5) EOS % (test code = 0.1 % 713-8) BASO % (test code = 0.1 % 706-2) GRAN MAT x10^3(ANC) 6.79 10*3/uL 1.88-7.09 (test code = 2788106716) IMM GRAN x10^3 (test 0.16 10*3/uL 0.00-0.06 H code = 3472012554) LYMPH x10^3 (test code 1.26 10*3/uL 1.32-3.29 L = 731-0) MONO x10^3 (test code 0.18 10*3/uL 0.33-0.92 L = 742-7) EOS x10^3 (test code = <0.03 0.03-0.39 L 711-2) BASO x10^3 (test code <0.03 0.01-0.07 = 704-7) Lab Interpretation Abnormal (test code = 91664-6) [facility] BY [id number] 22:27:23 Test Item Value Reference Range Interpretation Comments Escherichia coli K1 Negative Negative, (test code = 68985-3) Indeterminate, See Comment Haemophilus influenzae Negative Negative, (test code = 85258-8) Indeterminate, See Comment Listeria monocytogenes Negative Negative, (test code = 61778-6) Indeterminate, See Comment Neisseria meningitidis Negative Negative, (encapsulated) (test Indeterminate, code = 19373-9) See Comment Streptococcus agalactiae Negative Negative, (test code = 10792-5) Indeterminate, See Comment Streptococcus pneumoniae Negative Negative, (test code = 56376-2) Indeterminate, See Comment Cytomegalovirus (test Negative Negative, code = 98502-1) Indeterminate, See Comment Enterovirus (test code = Negative Negative, 71260-5) Indeterminate, See Comment Herpes simplex virus 1 Negative Negative, (test code = 59273-0) Indeterminate, See Comment Herpes simplex virus 2 Negative Negative, (test code = 06574-5) Indeterminate, See Comment Human herpesvirus 6 Negative Negative, (test code = 69253-2) Indeterminate, See Comment Human parechovirus (test Negative Negative, code = 53216-3) Indeterminate, See Comment Varicella zoster virus Negative Negative, (test code = 89427-0) Indeterminate, See Comment Cryptococcus Negative Negative, neoformans/gattii (test Indeterminate, code = 51224-5) See Comment ANTHONY (test code = ANTHONY) Negative:A negative result does not rule-out infection. ?This assay does not test for all potential infectious agents. Positive:A positive test result does not necessarily indicate the presence of viable organism. ? Lab Interpretation (test Normal code = 64607-0) [facility] FLUID DIRECT [id number] 21:52:07 Test Item Value Reference Range Interpretation Comments BF COLOR (test code = Clear 2415696070) BF WBC Count (test See_Comment [Automat ed message] The code = 9309910068) system [facility] generated this result transmit karly reference range : 0 - 5 /?L. The reference r miky was not used to interpr et this result as cassandra l/abnormal. BF RBC Count (test See_Comment [Automat ed message] The code = 0544310509) system [facility] generated this result transmit karly reference range : /?L. The reference range was not used to interpr et this result as cassandra l/abnormal. [facility] FLUID MANUAL [id number] 21:52:07BF SEGSComment: Less than 100 cells counted due to low WBC; Differential is not reported in percent.10 cells counted: 1 Neutrophils, 9 Lymphocytes, 0 Macrophages [facility] LABORATORY SERVICES#CELS CNTDUTMBLABORATORY SERVICESUnBaylor [facility] BrenhamCERROSPINAL FLUID [id number] 20:58:36 Test Item Value Reference Range Interpretation Comments T. PRO CSF (test code = 68.0 mg/dL 15.0-45.0 H 1183419025) UNSPUN BODY FLUID COLOR Light Red (test code = 1623720316) UNSPUN BODY FLUID CLARITY Cloudy (test code = 7404317354) SPUN BODY FLUID COLOR [place] (test code = 1565690297) SPUN BODY FLUID CLARITY Clear (test code = 4910731418) Sediment (test code = The se diment 1218608242) volume is <0.1 mLs of the total fl uid volume of 5cc a nd its color is re d. Lab Interpretation (test Abnormal code = 25792-9) [facility] [id number] 20:58:25 Test Item Value Reference Range Interpretation Comments GLU CSF (test code = 74 mg/dL 50-80 3975870398) UNSPUN BODY FLUID Light Red COLOR (test code = 6926605146) UNSPUN BODY FLUID Cloudy CLARITY (test code = 0871306117) SPUN BODY FLUID COLOR [place] (test code = 1845441771) SPUN BODY FLUID Clear CLARITY (test code = 9546720948) Sediment (test code = The se diment volume is 6074199172) <0.1 mLs of the total fluid volume of 5cc and its color i s red. [facility] 1 [id number] 15:19:43 No acute cardiopulmonary process. Preliminary Report Dictated by Resident: Francisco Reyes MD., have reviewed this study and agree with theove report.PROCEDURE: XR CHEST 1 VW CLINICAL INDICATION: leukocytosis TECHNIQUE: Frontal chest radiograph was obtained. COMPARISON: 06/26/2020 FINDINGS: The lungs are clear. No pleural effusion or pneumothorax is seen. The heart is normal in size. No acute bony abnormality is noted. [facility], Radiant Results Inft User - 07/14/2020 10:20 AMCDT PROCEDURE: XR CHEST 1 VWCLINICAL INDICATION: leukocytosis TECHNIQUE: Frontal chest radiograph was obtained.COMPARISON: 06/26/2020FINDINGS:The lungs are clear. No pleural effusion or pneumothorax is seen. The heart is normal in size.No acute bony abnormality is noted.IMPRESSIONNo acute cardiopulmonary process.Preliminary Report Dictated byResident: Francisco Laughlin MD., have reviewed this study and agree with theabove report. [facility] CenterPO[facility] GLUCOSE (AUTOMATED)2020-07-14 15:07:20 Test Item Value Reference Range Interpretation Comments POCT GLU (test code = 5984422496) 98 mg/dL 70-110 Lab Interpretation (test code = Normal 74524-2) [facility] CenterC-REACTIVE [id number] 14:51:17 Test Item Value Reference Range Interpretation Comments CRP (test code = 4726559772) 0.2 mg/dL <0.8 Lab Interpretation (test code = Normal 66332-3) [facility] CenterMAGNESIUM2021-06-02 14:40:38 Test Item Value Reference Range Interpretation Comments MAGNESIUM (test code = 6740449666) 2.1 mg/dL 1.7-2.4 Lab Interpretation (test code = Normal 10940-0) [facility] CenterPhosphorus [id number] 13:50:50 Test Item Value Reference Range Interpretation Comments PHOSPHORUS (test code = 8731795974) 3.1 mg/dL 2.5-5.0 Lab Interpretation (test code = Normal 56190-3) [facility] CenterBasic Metabolic Panel (NA, K, CL, CO2, GLUCOSE, BUN, CREATININE, CA)2020-07-14 12:41:09 Test Item Value Reference Range Interpretation Comments NA (test code = 136 mmol/L 135-145 6608082755) K (test code = 4.3 mmol/L 3.5-5.0 6164541163) CL (test code = 108 mmol/L 98-108 7756069668) CO2 TOTAL (test code = 17 mmol/L 23-31 L 0955407597) AGAP (test code = 2-16 6068243884) BUN (test code = 22 mg/dL 7-23 3141846480) GLUCOSE (test code = 98 mg/dL 70-110 4205931567) CREATININE (test code = 0.70 mg/dL 0.50-1.04 4764650448) CALCIUM (test code = 9.4 mg/dL 8.6-10.6 0582387385) eGFR (test code = mL/min/1.73m2 6363701360) ANTHONY (test code = ANTHONY) Association of [...] tests). Lab Interpretation Abnormal (test code = 43509-0) [facility] CenterHepatic Function Panel (ALB, T.PRO, BILI T, BU/BC, ALT, AST, ALK PHOS)2020-07-14 12:41:09 Test Item Value Reference Range Interpretation Comments TOTAL BILI (test code = 5670076554) 0.3 mg/dL 0.1-1.1 BILI UNCON (test code = 4600534630) 0.1 mg/dL 0.1-1.1 BILI CONJ (test code = 5209187388) 0.0 mg/dL 0.0-0.3 T PROTEIN (test code = 0536372131) 7.6 g/dL 6.3-8.2 ALBUMIN (test code = 0345478411) 4.6 g/dL 3.5-5.0 ALK PHOS (test code = 6933339609) 120 U/L 34-122 ALTv (test code = 1742-6) 42 U/L 5-35 H AST(SGOT) (test code = 5959111420) 24 U/L 13-40 Lab Interpretation (test code = Abnormal 32512-2) [facility] CenterUrinalysis2021-06-02 10:22:07 Test Item Value Reference Range Interpretation Comments APPEARANCE (test code = Clear Clear 2769920846) COLOR (test code = Yellow Yellow 5647849804) PH (test code = 4.8-8.0 2594674778) SP GRAVITY (test code = 1.003-1.030 0173241461) GLU U QUAL (test code = Normal Normal 5369116462) BLOOD (test code = Negative Negative 5727909547) KETONES (test code = Negative Negative 0001781553) PROTEIN (test code = Negative Negative 2887-8) UROBILIN (test code = Normal Normal 7157485593) BILIRUBIN (test code = Negative Negative 5342188974) NITRITE (test code = Negative Negative 5743271686) LEUK MURRAY (test code = Negative Negative 3809084435) RBC/HPF (test code = See_Comment [Autom ated message] 0363489748) The system [employer] ([employer]) generated this result transmitted ref erence range: 0 - 3 HP F. The reference range was not used to int erpret this result as normal/abnormal . WBC/HPF (test code = See_Comment [Autom ated message] 6024352338) The system [employer] ([employer]) generated this result transmitted ref erence range: 0 - 5 HP F. The reference range was not used to int erpret this result as normal/abnormal . BACTERIA (test code = Negative Negative 1689383061) MUCOUS (test code = Slight Negative LPF A 0403935764) SQ EPITH (test code = See_Comment [Auto mated message] 8208851212) The system [employer] ([employer]) generated this result transmitted ref erence range: <=2 HPF. The reference range was not used to int erpret this result as normal/abnormal . Lab Interpretation (test Abnormal code = 63783-8) [facility] CenterCOVID-19 (ID NOW RAPID TESTING)2020-07-14 09:45:51 Test Item Value Reference Range Interpretation Comments SARS-CoV-2 Rapid ID NOW Not Detected Not Detected (test code = 25791-8) ANTHONY (test code = ANTHONY) ID NOW COVID-19 Assay is an isothermal nucleic acid amplification test intended for the qualitative detection of nucleic acid from SARS-CoV-2 viral RNA in nasopharyngeal (DICTATING MACHINE MECHANIC) specimens. It is used under Emergency Use [...] indicated. Lab Interpretation Normal (test code = 45086-9) [facility] CenterCB with [id number] 02:07:47 Test Item Value Reference Range Interpretation Comments WBC (test code = See_Comment H [Automated 7553-2) message] The system which generated this result transmit karly reference range : 4.30 - 11.10 10*3/?L. The reference range was not used to interpret this result as normal/abnormal . RBC (test code = See_Comment L [Automated 379-8) message] The system which generated this result [...] RDW-SD (test code = 47.8 fL 39.0-49.9 01800-2) RDW-CV (test code = 13.6 % 12.0-15.5 788-0) PLT (test code = See_Comment H [Automated 777-3) message] The system which generated this result transmit karly reference range : 166 - 358 10*3/ ?L. The reference range was not u sed to interpret th is result as normal/abnormal . MPV (test code = 10.6 fL 9.5-12.9 13995-8) NRBC/100 WBC (test See_Comment [Automat ed code = 9641616531) message] The system which generated this result transmit karly reference range : 0.0 - 10.0 /100 WBCs. The reference range was not used to interpret this result as normal/abnormal . NRBC x10^3 (test code See_Comment [Auto mated = 0832896954) message] The system which generated this result transmit karly reference range : 10*3/?L. The reference range was not used to interpret this result as normal/abnormal . GRAN MAT (NEUT) % 70.5 % (test code = 770-8) IMM GRAN % (test code 1.60 % = 0248301545) LYMPH % (test code = 20.8 % 736-9) MONO % (test code = 6.8 % 5905-5) EOS % (test code = 0.1 % 713-8) BASO % (test code = 0.2 % 706-2) GRAN MAT x10^3(ANC) 12.19 10*3/uL 1.88-7.09 H (test code = 3632069364) IMM GRAN x10^3 (test 0.27 10*3/uL 0.00-0.06 H code = 4385825690) LYMPH x10^3 (test code 3.58 10*3/uL 1.32-3.29 H = 731-0) MONO x10^3 (test code 1.17 10*3/uL 0.33-0.92 H = 742-7) EOS x10^3 (test code = <0.03 0.03-0.39 L 711-2) BASO x10^3 (test code 0.03 10*3/uL 0.01-0.07 = 704-7) Lab Interpretation Abnormal (test code = 93491-5) [facility] CenterSEDIMENTATION [id number] 02:02:09 Test Item Value Reference Range Interpretation Comments ESR (test code = See_Comment H [Automated message] 2185727597) The system [employer] generated this result transmitted ref erence range: 0 - 20 m m/HR. The reference r miky was not used to interpret this result as normal/abnor mal. Lab Interpretation (test Abnormal code = 67205-1) [facility] WITH [id number] 03:30:13 Test Item Value Reference Range Interpretation [...] RDW-SD (test code = 48.1 fL 39.0-49.9 72804-5) RDW-CV (test code = 13.3 % 12.0-15.5 788-0) PLT (test code = See_Comment [Automated 777-3) message] The sy stem which generated this result transmitted reference range : 166 - 358 10*3/ ?L. The reference r miky was not used to interpret this result as normal/abnormal . MPV (test code = 10.4 fL 9.5-12.9 17417-7) NRBC/100 WBC (test See_Comment [Automat ed code = 6982547105) message] The system which generated this result transmitted reference range : 0.0 - 10.0 /100 WBCs. The refer ence range was not u sed to interpret th is result as normal/abnormal . NRBC x10^3 (test code <0.01 See_Comment [Auto mated = 7016170619) message] The s ystem which generated this result transmitted reference range : 10*3/?L. The reference range was not used to interpret this result as normal/abnormal . GRAN MAT (NEUT) % 44.6 % (test code = 770-8) IMM GRAN % (test code 0.80 % = 4447942868) LYMPH % (test code = 43.3 % 736-9) MONO % (test code = 10.0 % 5905-5) EOS % (test code = 0.9 % 713-8) BASO % (test code = 0.4 % 706-2) GRAN MAT x10^3(ANC) 3.52 10*3/uL 1.88-7.09 (test code = 5758608262) IMM GRAN x10^3 (test 0.06 10*3/uL 0.00-0.06 code = 6780781038) LYMPH x10^3 (test code 3.42 10*3/uL 1.32-3.29 H = 731-0) MONO x10^3 (test code 0.79 10*3/uL 0.33-0.92 = 742-7) EOS x10^3 (test code = 0.07 10*3/uL 0.03-0.39 711-2) BASO x10^3 (test code 0.03 10*3/uL 0.01-0.07 = 704-7) Lab Interpretation Abnormal (test code = 20508-1) [facility] CenterLIPASE2021-05-23 19:38:39 Test Item Value Reference Range Interpretation Comments LIPASE (test code = 9873857327) 39 U/L 0-220 Lab Interpretation (test code = Normal 60842-2) [facility] CenterCOMP. METABOLIC PANEL (66422)2020-07-04 19:20:59 Test Item Value Reference Range Interpretation Comments NA (test code = 138 mmol/L 135-145 0613875764) K (test code = 3.9 mmol/L 3.5-5.0 9320328916) CL (test code = 101 mmol/L 98-108 5876666199) CO2 TOTAL (test code = 27 mmol/L 23-31 1041837970) AGAP (test code = 2-16 0196706894) BUN (test code = 20 mg/dL 7-23 8224098380) GLUCOSE (test code = 105 mg/dL 70-110 5386277056) CREATININE (test code = 0.78 mg/dL 0.50-1.04 5410731616) TOTAL BILI (test code = 0.4 mg/dL 0.1-1.9 1323016425) CALCIUM (test code = 9.8 mg/dL 8.6-10.6 0684950072) T PROTEIN (test code = 9.1 g/dL 6.3-8.2 H 4830435468) ALBUMIN (test code = 4.9 g/dL 3.5-5.0 8707096021) ALK PHOS (test code = 171 U/L 34-122 H 6491646990) ALTv (test code = 136 U/L 5-35 H 1742-6) AST(SGOT) (test code = 82 U/L 13-40 H 2683743023) eGFR (test code = mL/min/1.73m2 1180072035) ANTHONY (test code = ANTHONY) Association of [...] tests). Lab Interpretation Abnormal (test code = 83238-8) [facility] CenterUrinalysis2021-05-23 19:14:12 Test Item Value Reference Range Interpretation Comments APPEARANCE (test code = Clear Clear 1536184623) COLOR (test code = Yellow Yellow 6257271097) PH (test code = 4.8-8.0 6799038904) SP GRAVITY (test code = 1.003-1.030 6471054863) GLU U QUAL (test code = Normal Normal 4130255775) BLOOD (test code = Negative Negative 1442555205) KETONES (test code = Negative Negative 4056677922) PROTEIN (test code = Negative Negative 2887-8) UROBILIN (test code = Normal Normal 2934902716) BILIRUBIN (test code = Negative Negative 8724360068) NITRITE (test code = Negative Negative 4556647745) LEUK MURRAY (test code = 75/uL Negative A 2351325152) RBC/HPF (test code = See_Comment [Autom ated message] 2368283794) The system [employer] ([employer]) generated this result transmitted ref erence range: 0 - 3 HP F. The reference range was not used to int erpret this result as normal/abnormal . WBC/HPF (test code = See_Comment H [Autom ated message] 2123244305) The system [employer] ([employer]) generated this result transmitted ref erence range: 0 - 5 HP F. The reference range was not used to int erpret this result as normal/abnormal . BACTERIA (test code = Negative Negative 2214851273) MUCOUS (test code = Slight Negative LPF A 6847338572) SQ EPITH (test code = HPF 4977977890) Lab Interpretation (test Abnormal code = 77454-2) [facility] WITH [id number] 19:10:40 Test Item Value Reference Range Interpretation [...] RDW-SD (test code = 47.2 fL 39.0-49.9 70025-5) RDW-CV (test code = 13.2 % 12.0-15.5 788-0) PLT (test code = See_Comment [Automated 777-3) message] The sy stem which generated this result transmitted reference range : 166 - 358 10*3/ ?L. The reference r miky was not used to interpret this result as normal/abnormal . MPV (test code = 10.5 fL 9.5-12.9 39523-7) NRBC/100 WBC (test See_Comment [Automat ed code = 0001367775) message] The system which generated this result transmitted reference range : 0.0 - 10.0 /100 WBCs. The refer ence range was not u sed to interpret th is result as normal/abnormal . NRBC x10^3 (test code <0.01 See_Comment [Auto mated = 4416374625) message] The s ystem which generated this result transmitted reference range : 10*3/?L. The reference range was not used to interpret this result as normal/abnormal . GRAN MAT (NEUT) % 54.8 % (test code = 770-8) IMM GRAN % (test code 0.80 % = 6545669029) LYMPH % (test code = 32.1 % 736-9) MONO % (test code = 10.3 % 5905-5) EOS % (test code = 1.7 % 713-8) BASO % (test code = 0.3 % 706-2) GRAN MAT x10^3(ANC) 3.46 10*3/uL 1.88-7.09 (test code = 8628153371) IMM GRAN x10^3 (test 0.05 10*3/uL 0.00-0.06 code = 1660916231) LYMPH x10^3 (test code 2.03 10*3/uL 1.32-3.29 = 731-0) MONO x10^3 (test code 0.65 10*3/uL 0.33-0.92 = 742-7) EOS x10^3 (test code = 0.11 10*3/uL 0.03-0.39 711-2) BASO x10^3 (test code <0.03 0.01-0.07 = 704-7) Lab Interpretation Abnormal (test code = 27949-3) [facility] CenterZOLTAN [id number] 17:09:15 Test Item Value Reference Range Interpretation Comments TROPONIN I (test 0.000 ng/mL See_Comment [Automated code = 7429465222) message] The system which generated this result [...] ? Lab Interpretation Normal (test code = 09971-3) [facility] CenterMR BRAIN WO [id number] 15:28:24 Within the limitation of motion degrading [...] 10:29 AM CDR BRAIN WO CONTRASTCOMPARISON: CT headdated 06/26/2020.HISTORY: Headache, [...] reviewed this study and agree with theabove report.[facility] CenterCT ANGIOGRAM [id number] 01:50:14 No large vessel occlusion or flow-limiting [...] suspected TECHNIQUE: Axial CT imaging of the [place] and from the skull baseto the superior mediastinum was obtained during arterial phase after theintravenous administration of IV contrast. Coronal, sagittal, and MIPS wereconstructed. COMPARISON: [place] CT head FINDINGS: CTA HEAD: The PICA origin is visualized bilaterally. The basilar artery is normal incaliber. Common origin of the left superior cerebellar and [employer] is noted.The superior cerebellararteries are patent. The posterior cerebralarteries are patent. A right [employer]ER is identified. A sm all leftposterior communicating [...] suspected TECHNIQUE: Axial CT imaging of the [place] and from the skull baseto the superior mediastinum was obtained during arterial phase after theintravenous administration of IV contrast. Coronal, sagittal, and MIPS wereconstructed.COMPARISON: Same day CT headFINDINGS:CTA HEAD:The PICA origin is visualized bilaterally. The basilar artery is normal incaliber. Common origin of the left superior cerebellar and [employer]ER is noted.The superior cerebellar arteries are patent. The posterior cerebralarteries are patent. A right [employer] is identified. A small leftposterior communicating artery [...] reviewed this study and agree with theabove report.[facility] CenterCT ANGIOGRAM [id number] 01:50:14 No large vessel occlusion or flow-limiting stenosis is identified in thehead and neck arteries. Follow-up with dedicated thyroid ultrasound on a non-emergent, outpatientbasis is recommended for further characterization. Preliminary Report Dictated by Resident: Aury Hallman MD., have reviewed this study and agree with theabove report.EXAM: CT ANGIOGRAM HEAD, CT ANGIOGRAM NECK HISTORY: ?Headache, intracranial hemorrhage suspected TECHNIQUE: Axial CT imaging of the [place] and from the skull baseto the superior mediastinum was obtained during arterial phase after theintravenous administration of IV contrast. Coronal, sagittal, and MIPS wereconstructed. COMPARISON: [place] CT head FINDINGS: CTA HEAD: The PICA origin is visualized bilaterally. The basilar artery is normal incaliber. Common origin of the left superior cerebellar and [employer]ER is noted.The superior cerebellararteries are patent. The posterior cerebralarteries are patent. A right [employer]OT[employer] F[employer]ER is identified. A sm all leftposterior communicating [...] suspected TECHNIQUE: Axial CT imaging of the [place] and from the skull baseto the superior mediastinum was obtained during arterial phase after theintravenous administration of IV contrast. Coronal, sagittal, and MIPS wereconstructed.COMPARISON: Same day CT headFINDINGS:CTA HEAD:The PICA origin is visualized bilaterally. The basilar artery is normal incaliber. Common origin of the left superior cerebellar and COT[employer] F[employer]ER is noted.The superior cerebellar arteries are patent. The posterior cerebralarteries are patent. A right COT[employer] FARMWORKER is identified. A small leftposterior communicating artery [...] reviewed this study and agree with theabove report.[facility] CenterSEDIMENTATION [id number] 01:00:08 Test Item Value Reference Range Interpretation Comments ESR (test code = See_Comment H [Automated message] 6029839506) The system [employer] ([employer]) generated this result transmitted ref erence range: 0 - 20 m m/HR. The reference r miky was not used to interpret this result as normal/abnor mal. Lab Interpretation (test Abnormal code = 65889-4) [facility] CenterCT HEAD WO [id number] 00:39:04 No acute intracranial hemorrhage or mass [...] reviewed this study and agree with theabove report.[facility] CenterCOVID-19 (ID NOW RAPID TESTING)2020-06-26 22:58:15 Test Item Value Reference Range Interpretation Comments SARS-CoV-2 Rapid ID NOW Not Detected Not Detected (test code = 61292-9) ANTHONY (test code = ANTHONY) ID NOW COVID-19 Assay is an isothermal nucleic acid amplification test intended for the qualitative detection of nucleic acid from SARS-CoV-2 viral RNA in nasopharyngeal (DICTATING MACHINE MECHANIC) specimens. It is used under Emergency Use [...] indicated. Lab Interpretation Normal (test code = 33290-9) [facility] 1 [id number] 22:12:42 No acute cardiopulmonary abnormality. Preliminary Report [...] reviewed this study and agree with the abovereport.[facility] CenterUrinalysis 2020-06-26 21:49:50 Test Item Value Reference Range Interpretation Comments APPEARANCE (test code = Clear Clear 2181801962) COLOR (test code = Yellow Yellow 0923434418) PH (test code = 4.8-8.0 7469052479) SP GRAVITY (test code = 1.003-1.030 5831172656) GLU U QUAL (test code = Normal Normal 8871643773) BLOOD (test code = Negative Negative 9455238703) KETONES (test code = Negative Negative 1988136050) PROTEIN (test code = Negative Negative 2887-8) UROBILIN (test code = Normal Normal 6676612713) BILIRUBIN (test code = Negative Negative 4610128668) NITRITE (test code = Negative Negative 9470488048) LEUK MURRAY (test code = Negative Negative 9942162912) RBC/HPF (test code = See_Comment [Autom ated message] 9873072309) The system [employer] ([employer]) generated this result transmitted ref erence range: 0 - 3 HP F. The reference range was not used to int erpret this result as normal/abnormal . WBC/HPF (test code = See_Comment [Autom ated message] 8984579976) The system [employer] ([employer]) generated this result transmitted ref erence range: 0 - 5 HP F. The reference range was not used to int erpret this result as normal/abnormal . BACTERIA (test code = Negative Negative 2493064278) MUCOUS (test code = Slight Negative LPF A 5626117281) SQ EPITH (test code = HPF 2367006443) Lab Interpretation (test Abnormal code = 31367-2) [facility] CenterTroponin [id number] 21:18:44 Test Item Value Reference Range Interpretation Comments TROPONIN I (test <0.012 See_Comment [Automated code = 8640232190) message] The system which generated this result [...] ? Lab Interpretation Normal (test code = 85398-5) [facility] (NA, K, CL, CO2, GLUCOSE, BUN, CREATININE, CA)2020-06-26 21:07:49 Test Item Value Reference Range Interpretation Comments NA (test code = 141 mmol/L 135-145 0066439288) K (test code = 4.1 mmol/L 3.5-5.0 6043530537) CL (test code = 109 mmol/L 98-108 H 3907437983) CO2 TOTAL (test code = 23 mmol/L 23-31 4878506307) AGAP (test code = 2-16 5511759924) BUN (test code = 19 mg/dL 7-23 3751411585) GLUCOSE (test code = 112 mg/dL 70-110 H 8190923809) CREATININE (test code = 0.87 mg/dL 0.50-1.04 5716284388) CALCIUM (test code = 9.6 mg/dL 8.6-10.6 5375760697) eGFR (test code = mL/min/1.73m2 4776716157) ANTHONY (test code = ANTHONY) Association of [...] tests). Lab Interpretation Abnormal (test code = 68166-8) [facility] (ALB, T.PRO, BILI T, BU/BC, ALT, AST, ALK PHOS)2020-06-26 21:07:28 Test Item Value Reference Range Interpretation Comments TOTAL BILI (test code = 3496032552) 0.3 mg/dL 0.1-1.1 BILI UNCON (test code = 1689110326) 0.1 mg/dL 0.1-1.1 BILI CONJ (test code = 6799683222) 0.0 mg/dL 0.0-0.3 T PROTEIN (test code = 7148008238) 7.4 g/dL 6.3-8.2 ALBUMIN (test code = 1560377922) 4.4 g/dL 3.5-5.0 ALK PHOS (test code = 5791876220) 138 U/L 34-122 H ALTv (test code = 1742-6) 32 U/L 5-35 AST(SGOT) (test code = 4158339498) 40 U/L 13-40 Lab Interpretation (test code = Abnormal 49656-6) [facility] with Hbsqooktdkoj5377-13-48 20:55:04 Test Item Value Reference Range Interpretation [...] RDW-SD (test code = 49.3 fL 39.0-49.9 72963-7) RDW-CV (test code = 13.7 % 12.0-15.5 788-0) PLT (test code = See_Comment [Automated 777-3) message] The sy stem which generated this result transmitted reference range : 166 - 358 10*3/ ?L. The reference r miky was not used to interpret this result as normal/abnormal . MPV (test code = 10.7 fL 9.5-12.9 31812-5) NRBC/100 WBC (test See_Comment [Automat ed code = 1561063211) message] The system which generated this result transmitted reference range : 0.0 - 10.0 /100 WBCs. The refer ence range was not u sed to interpret th is result as normal/abnormal . NRBC x10^3 (test code <0.01 See_Comment [Auto mated = 5945067953) message] The s ystem which generated this result transmitted reference range : 10*3/?L. The reference range was not used to interpret this result as normal/abnormal . GRAN MAT (NEUT) % 57.2 % (test code = 770-8) IMM GRAN % (test code 0.20 % = 6233395567) LYMPH % (test code = 31.8 % 736-9) MONO % (test code = 9.9 % 5905-5) EOS % (test code = 0.6 % 713-8) BASO % (test code = 0.3 % 706-2) GRAN MAT x10^3(ANC) 3.80 10*3/uL 1.88-7.09 (test code = 2672090165) IMM GRAN x10^3 (test <0.03 0.00-0.06 code = 6787800630) LYMPH x10^3 (test code 2.11 10*3/uL 1.32-3.29 = 731-0) MONO x10^3 (test code 0.66 10*3/uL 0.33-0.92 = 742-7) EOS x10^3 (test code = 0.04 10*3/uL 0.03-0.39 711-2) BASO x10^3 (test code <0.03 0.01-0.07 = 704-7) Lab Interpretation Abnormal (test code = 06325-2) [facility]. METABOLIC PANEL (10222)2020-06-01 11:34:39 Test Item Value Reference Range Interpretation Comments NA (test code = 137 mmol/L 135-145 4966683736) K (test code = 4.3 mmol/L 3.5-5.0 2714754135) CL (test code = 106 mmol/L 98-108 6124386553) CO2 TOTAL (test code = 26 mmol/L 23-31 1077402873) AGAP (test code = 2-16 8577994347) BUN (test code = 13 mg/dL 7-23 3195524888) GLUCOSE (test code = 81 mg/dL 70-110 9927487636) CREATININE (test code = 0.76 mg/dL 0.50-1.04 5238614081) TOTAL BILI (test code = 0.4 mg/dL 0.1-1.7 9247556063) CALCIUM (test code = 8.5 mg/dL 8.6-10.6 L 4660497902) T PROTEIN (test code = 6.0 g/dL 6.3-8.2 L 4566061088) ALBUMIN (test code = 3.5 g/dL 3.5-5.0 0455058892) ALK PHOS (test code = 128 U/L 34-122 H 2545432019) ALTv (test code = 54 U/L 5-35 H 1742-6) AST(SGOT) (test code = 51 U/L 13-40 H 4177870478) eGFR (test code = mL/min/1.73m2 7198659437) ANTHONY (test code = ANTHONY) Association of [...] tests). Lab Interpretation Abnormal (test code = 60418-0) [facility] CenterLAB ONLY COVID OYSOYBFFOKMUVY9934-15-22 02:48:13COVID DMT InterpretationInterpretation/Recommendations: Molecular NAAT Tests for [...] testing the patient has had at [facility], including molecular NAAT testing (more commonly known as PCR testing and Rapid ID Now testing) and antibody testing. It does not take into account any testing that a patient has had outside of the [facility] medical record. [facility] LABORATORY SERVICESCOVID ResultsSA RS-CoV-2 Rapid ID NOW (no units) ? ? Date ? Value ? 05/30/2020 ? Not Detected ? [facility] LABORATORY SERVICES [facility] (NA, K, CL, CO2, GLUCOSE, BUN, CREATININE, CA)2020-05-31 15:23:27 Test Item Value Reference Range Interpretation Comments NA (test code = 137 mmol/L 135-145 3427798741) K (test code = 4.0 mmol/L 3.5-5.0 9990493839) CL (test code = 105 mmol/L 98-108 9101530133) CO2 TOTAL (test code 27 mmol/L 23-31 = 9898491686) AGAP (test code = 2-16 0665559509) BUN (test code = 14 mg/dL 7-23 7233756848) GLUCOSE (test code = 92 mg/dL 70-110 6082633851) CREATININE (test code 0.72 mg/dL 0.50-1.04 = 4059776645) CALCIUM (test code = 8.8 mg/dL 8.6-10.6 4913887647) eGFR (test code = mL/min/1.73m2 4465305443) ANTHONY (test code = ANTHONY) Association of [...] or urine or abnormalities in imaging tests). [facility] with Pewinuznprlg6873-95-71 12:40:08 Test Item Value Reference Range Interpretation [...] (test code = 51.6 fL 39.0-49.9 H 96383-9) RDW-CV (test code = 14.3 % 12.0-15.5 788-0) PLT (test code = See_Comment [Automated 777-3) message] The sy stem which generated this result transmitted reference range : 166 - 358 10*3/ ?L. The reference r miky was not used to interpret this result as normal/abnormal . MPV (test code = 10.0 fL 9.5-12.9 07834-6) NRBC/100 WBC (test See_Comment [Automat ed code = 9320493795) message] The system which generated this result transmitted reference range : 0.0 - 10.0 /100 WBCs. The refer ence range was not u sed to interpret th is result as normal/abnormal . NRBC x10^3 (test code <0.01 See_Comment [Auto mated = 8155863979) message] The s ystem which generated this result transmitted reference range : 10*3/?L. The reference range was not used to interpret this result as normal/abnormal . GRAN MAT (NEUT) % 40.2 % (test code = 770-8) IMM GRAN % (test code 0.40 % = 8825093560) LYMPH % (test code = 47.8 % 736-9) MONO % (test code = 10.5 % 5905-5) EOS % (test code = 0.9 % 713-8) BASO % (test code = 0.2 % 706-2) GRAN MAT x10^3(ANC) 2.15 10*3/uL 1.88-7.09 (test code = 7749735530) IMM GRAN x10^3 (test <0.03 0.00-0.06 code = 7582438040) LYMPH x10^3 (test code 2.55 10*3/uL 1.32-3.29 = 731-0) MONO x10^3 (test code 0.56 10*3/uL 0.33-0.92 = 742-7) EOS x10^3 (test code = 0.05 10*3/uL 0.03-0.39 711-2) BASO x10^3 (test code <0.03 0.01-0.07 = 704-7) Lab Interpretation Abnormal (test code = 38911-7) [facility] WO [id number] 21:54:53 1. ?Nonobstructive left nephrolithiasis. No striated [...] eviewed this study and agree with theabove report.[facility] CenterCOVID-19 (ID NOW RAPID TESTING)2020-05-30 20:50:01 Test Item Value Reference Range Interpretation Comments SARS-CoV-2 Rapid ID NOW Not Detected Not Detected (test code = 50642-5) ANTHONY (test code = ANTHONY) ID NOW COVID-19 Assay is an isothermal nucleic acid amplification test intended for the qualitative detection of nucleic acid from SARS-CoV-2 viral RNA in nasopharyngeal (DICTATING MACHINE MECHANIC) specimens. It is used under Emergency Use [...] indicated. Lab Interpretation Normal (test code = 91758-1) [facility] Metabolic Panel (NA, K, CL, CO2, GLUCOSE, BUN, CREATININE, CA)2020-05-30 20:40:22 Test Item Value Reference Range Interpretation Comments NA (test code = 139 mmol/L 135-145 7947892400) K (test code = 4.0 mmol/L 3.5-5.0 0582278074) CL (test code = 105 mmol/L 98-108 5944931222) CO2 TOTAL (test code 25 mmol/L 23-31 = 8111827016) AGAP (test code = 2-16 7783587540) BUN (test code = 18 mg/dL 7-23 7988163610) GLUCOSE (test code = 100 mg/dL 70-110 6278043653) CREATININE (test code 0.66 mg/dL 0.50-1.04 = 1933621374) CALCIUM (test code = 9.2 mg/dL 8.6-10.6 6666577771) eGFR (test code = mL/min/1.73m2 0287438273) ANTHONY (test code = ANTHONY) Association of [...] or urine or abnormalities in imaging tests). [facility] (ALB, T.PRO, BILI T, BU/BC, ALT, AST, ALK PHOS)2020-05-30 20:40:22 Test Item Value Reference Range Interpretation Comments TOTAL BILI (test code = 7914058582) 0.4 mg/dL 0.1-1.1 BILI UNCON (test code = 4812426470) 0.2 mg/dL 0.1-1.1 BILI CONJ (test code = 5063067352) 0.0 mg/dL 0.0-0.3 T PROTEIN (test code = 3071569082) 7.7 g/dL 6.3-8.2 ALBUMIN (test code = 1901172235) 4.6 g/dL 3.5-5.0 ALK PHOS (test code = 8355872545) 158 U/L 34-122 H ALTv (test code = 1742-6) 70 U/L 5-35 H AST(SGOT) (test code = 9117071031) 46 U/L 13-40 H Lab Interpretation (test code = Abnormal 72990-4) [facility]eraPTT2021-[facility] 20:37:21 Test Item Value Reference Range Interpretation Comments APTT Patient (test See_Comment [Automat ed code = 3173-2) message] The system which generated this result transmitted reference range : 23 - 38 Seconds . The reference range was not used to interpr et this result as normal/abnormal . ANTHONY (test code = ANTHONY) The [facility] patient population mean normal value for aPTT is 30 seconds. Lab Interpretation Normal (test code = 14672-3) [facility] CenterProthrombin Time (PT) / [id number] 20:35:00 Test Item Value Reference Range Interpretation [...] tions. Lab Interpretation (test Normal code = 52639-3) [facility] CenterUrinalysis2021-04-18 20:34:10 Test Item Value Reference Range Interpretation Comments APPEARANCE (test code = Clear Clear 0332837607) COLOR (test code = Yellow Yellow 2773913275) PH (test code = 4.8-8.0 4326297566) SP GRAVITY (test code = 1.003-1.030 3779218660) GLU U QUAL (test code = Normal Normal 2585039201) BLOOD (test code = Negative Negative 9508520161) KETONES (test code = Negative Negative 8580126485) PROTEIN (test code = Negative Negative 2887-8) UROBILIN (test code = Normal Normal 8196169733) BILIRUBIN (test code = Negative Negative 3926610856) NITRITE (test code = Negative Negative 1917415109) LEUK MURRAY (test code = 25/uL Negative A 6476297231) RBC/HPF (test code = See_Comment [Autom ated message] 2232370370) The system [employer] ([employer]) generated this result transmitted ref erence range: 0 - 3 HP F. The reference range was not used to int erpret this result as normal/abnormal . WBC/HPF (test code = See_Comment [Autom ated message] 0329039010) The system [employer] ([employer]) generated this result transmitted ref erence range: 0 - 5 HP F. The reference range was not used to int erpret this result as normal/abnormal . BACTERIA (test code = Few Negative A 0873686599) MUCOUS (test code = Slight Negative LPF A 5610225941) SQ EPITH (test code = HPF 9377625815) Lab Interpretation (test Abnormal code = 86783-9) [facility]CBC with Cumahwxyklyh3400-07-44 20:27:23 Test Item Value Reference Range Interpretation Comments WBC (test code = See_Comment [Automated 7990-2) message] The sy stem which [...] RDW-SD (test code = 49.6 fL 39.0-49.9 10462-1) RDW-CV (test code = 14.1 % 12.0-15.5 788-0) PLT (test code = See_Comment [Automated 777-3) message] The sy stem which generated this result transmitted reference range : 166 - 358 10*3/ ?L. The reference r miky was not used to interpret this result as normal/abnormal . MPV (test code = 9.7 fL 9.5-12.9 20745-2) NRBC/100 WBC (test See_Comment [Automat ed code = 4260941287) message] The system which generated this result transmitted reference range : 0.0 - 10.0 /100 WBCs. The refer ence range was not u sed to interpret th is result as normal/abnormal . NRBC x10^3 (test code <0.01 See_Comment [Auto mated = 0542966955) message] The s ystem which generated this result transmitted reference range : 10*3/?L. The reference range was not used to interpret this result as normal/abnormal . GRAN MAT (NEUT) % 49.6 % (test code = 770-8) IMM GRAN % (test code 0.30 % = 5004999910) LYMPH % (test code = 38.7 % 736-9) MONO % (test code = 10.4 % 5905-5) EOS % (test code = 0.8 % 713-8) BASO % (test code = 0.2 % 706-2) GRAN MAT x10^3(ANC) 3.26 10*3/uL 1.88-7.09 (test code = 5400645760) IMM GRAN x10^3 (test <0.03 0.00-0.06 code = 2263977102) LYMPH x10^3 (test code 2.54 10*3/uL 1.32-3.29 = 731-0) MONO x10^3 (test code 0.68 10*3/uL 0.33-0.92 = 742-7) EOS x10^3 (test code = 0.05 10*3/uL 0.03-0.39 711-2) BASO x10^3 (test code <0.03 0.01-0.07 = 704-7) Lab Interpretation Abnormal (test code = 73492-6) [facility] CenterLactic Acid Whole Xgtnl8593-52-31 20:24:41 Test Item Value Reference Range Interpretation Comments LACTIC ACID (test code = 1.17 mmol/L 0.50-2.20 5181083910) Lab Interpretation (test code = Normal 11687-4) [facility] CenterUrinalysis2021-04-15 00:29:10 Test Item Value Reference Range Interpretation Comments APPEARANCE (test code = Clear Clear 4340302708) COLOR (test code = Yellow Yellow 4313326140) PH (test code = 4.8-8.0 1467441879) SP GRAVITY (test code = 1.003-1.030 2647555983) GLU U QUAL (test code = Normal Normal 6597617896) BLOOD (test code = Negative Negative 8973312777) KETONES (test code = Negative Negative 2467761752) PROTEIN (test code = Negative Negative 2887-8) UROBILIN (test code = Normal Normal 3762654165) BILIRUBIN (test code = Negative Negative 6224124605) NITRITE (test code = Negative Negative 8092281204) LEUK MURRAY (test code = 25/uL Negative A 2896440554) RBC/HPF (test code = See_Comment [Autom ated message] 4334280235) The system [employer] ([employer]) generated this result transmitted ref erence range: 0 - 3 HP F. The reference range was not used to int erpret this result as normal/abnormal . WBC/HPF (test code = See_Comment H [Autom ated message] 2151316625) The system [employer] ([employer]) generated this result transmitted ref erence range: 0 - 5 HP F. The reference range was not used to int erpret this result as normal/abnormal . BACTERIA (test code = Few Negative A 6773185416) MUCOUS (test code = Slight Negative LPF A 6534427261) SQ EPITH (test code = HPF 7990999794) Lab Interpretation (test Abnormal code = 85433-2) [facility] Metabolic Panel (NA, K, CL, CO2, GLUCOSE, BUN, CREATININE, CA)2020-05-26 23:56:22 Test Item Value Reference Range Interpretation Comments NA (test code = 140 mmol/L 135-145 0147999127) K (test code = 3.8 mmol/L 3.5-5.0 8132386984) CL (test code = 104 mmol/L 98-108 4667000340) CO2 TOTAL (test code 27 mmol/L 23-31 = 4510303294) AGAP (test code = 2-16 4589747482) BUN (test code = 15 mg/dL 7-23 3027540430) GLUCOSE (test code = 95 mg/dL 70-110 5132890307) CREATININE (test code 0.60 mg/dL 0.50-1.04 = 1414809967) CALCIUM (test code = 9.0 mg/dL 8.6-10.6 9724264690) eGFR (test code = mL/min/1.73m2 4266903939) ANTHONY (test code = ANTHONY) Association of [...] or urine or abnormalities in imaging tests). [facility] (ALB, T.PRO, BILI T, BU/BC, ALT, AST, ALK PHOS)2020-05-26 23:55:42 Test Item Value Reference Range Interpretation Comments TOTAL BILI (test code = 0498875642) 0.3 mg/dL 0.1-1.1 BILI UNCON (test code = 9342880027) 0.2 mg/dL 0.1-1.1 BILI CONJ (test code = 6820501267) 0.0 mg/dL 0.0-0.3 T PROTEIN (test code = 3238133960) 7.5 g/dL 6.3-8.2 ALBUMIN (test code = 1309442471) 4.5 g/dL 3.5-5.0 ALK PHOS (test code = 4528623756) 165 U/L 34-122 H ALTv (test code = 1742-6) 110 U/L 5-35 H AST(SGOT) (test code = 6674416711) 66 U/L 13-40 H Lab Interpretation (test code = Abnormal 42051-0) [facility]CBC with Eptvjcikkeuv6072-03-25 23:42:55 Test Item Value Reference Range Interpretation Comments WBC (test code = See_Comment [Automated 8490-2) message] The sy stem which generated this result transmitted reference range : 4.30 - 11.10 10*3/?L. The reference range was not used to interpret this result as normal/abnormal . RBC (test code = See_Comment L [Automated 359-8) message] The sy stem which generated this [...] RDW-SD (test code = 48.4 fL 39.0-49.9 75616-2) RDW-CV (test code = 13.6 % 12.0-15.5 788-0) PLT (test code = See_Comment [Automated 777-3) message] The sy stem which generated this result transmitted reference range : 166 - 358 10*3/ ?L. The reference r miky was not used to interpret this result as normal/abnormal . MPV (test code = 9.8 fL 9.5-12.9 38387-3) NRBC/100 WBC (test See_Comment [Automat ed code = 8698447643) message] The system which generated this result transmitted reference range : 0.0 - 10.0 /100 WBCs. The refer ence range was not u sed to interpret th is result as normal/abnormal . NRBC x10^3 (test code <0.01 See_Comment [Auto mated = 7605261310) message] The s ystem which generated this result transmitted reference range : 10*3/?L. The reference range was not used to interpret this result as normal/abnormal . GRAN MAT (NEUT) % 61.8 % (test code = 770-8) IMM GRAN % (test code 0.70 % = 8927476711) LYMPH % (test code = 27.3 % 736-9) MONO % (test code = 9.0 % 5905-5) EOS % (test code = 1.0 % 713-8) BASO % (test code = 0.2 % 706-2) GRAN MAT x10^3(ANC) 5.01 10*3/uL 1.88-7.09 (test code = 1875494171) IMM GRAN x10^3 (test 0.06 10*3/uL 0.00-0.06 code = 3753850192) LYMPH x10^3 (test code 2.22 10*3/uL 1.32-3.29 = 731-0) MONO x10^3 (test code 0.73 10*3/uL 0.33-0.92 = 742-7) EOS x10^3 (test code = 0.08 10*3/uL 0.03-0.39 711-2) BASO x10^3 (test code <0.03 0.01-0.07 = 704-7) Lab Interpretation Abnormal (test code = 19570-5) [facility] CenterUrinalysis2021-04-01 19:25:57 Test Item Value Reference Range Interpretation Comments APPEARANCE (test code = Clear Clear 7338842101) COLOR (test code = Yellow Yellow 4410527259) PH (test code = 4.8-8.0 7478260869) SP GRAVITY (test code = >1.060 1.003-1.030 H 0825867440) GLU U QUAL (test code = Normal Normal 0257815369) BLOOD (test code = Negative Negative 7033629628) KETONES (test code = Negative Negative 2231241154) PROTEIN (test code = Negative Negative 2887-8) UROBILIN (test code = Normal Normal 6907015265) BILIRUBIN (test code = Negative Negative 6827805912) NITRITE (test code = Negative Negative 2200742577) LEUK MURRAY (test code = 25/uL Negative A 5648586816) RBC/HPF (test code = See_Comment [Autom ated message] 5901825106) The system [employer] ([employer]) generated this result transmitted ref erence range: 0 - 3 HP F. The reference range was not used to int erpret this result as normal/abnormal . WBC/HPF (test code = See_Comment [Autom ated message] 3683230592) The system [employer] ([employer]) generated this result transmitted ref erence range: 0 - 5 HP F. The reference range was not used to int erpret this result as normal/abnormal . BACTERIA (test code = Few Negative A 1175359136) MUCOUS (test code = Slight Negative LPF A 2420667655) SQ EPITH (test code = HPF 7003426113) Lab Interpretation (test Abnormal code = 00917-3) [facility]CT [facility] W CGHBEVMH1474-42-78 17:38:50CT Abdomen and Pelvis with intravenous contrast. [...] eachmeasuring 2 to 3 mm in size. [facility] CenterHepatic Function Panel (ALB, T.PRO, BILI T, BU/BC, ALT, AST, ALK PHOS)2020-05-13 17:24:50 Test Item Value Reference Range Interpretation Comments TOTAL BILI (test code = 6580335958) 0.5 mg/dL 0.1-1.1 BILI UNCON (test code = 7629398722) 0.2 mg/dL 0.1-1.1 BILI CONJ (test code = 7423727759) 0.0 mg/dL 0.0-0.3 T PROTEIN (test code = 7594586405) 8.0 g/dL 6.3-8.2 ALBUMIN (test code = 3169223287) 4.7 g/dL 3.5-5.0 ALK PHOS (test code = 0788581552) 142 U/L 34-122 H ALTv (test code = 1742-6) 29 U/L 5-35 AST(SGOT) (test code = 4763787147) 41 U/L 13-40 H Lab Interpretation (test code = Abnormal 79957-8) [facility] CenterBasic Metabolic Panel (NA, K, CL, CO2, GLUCOSE, BUN, CREATININE, CA)2020-05-13 17:24:49 Test Item Value Reference Range Interpretation Comments NA (test code = 139 mmol/L 135-145 0322654987) K (test code = 3.9 mmol/L 3.5-5.0 1445659966) CL (test code = 111 mmol/L 98-108 H 9990947400) CO2 TOTAL (test code = 19 mmol/L 23-31 L 4335853401) AGAP (test code = 2-16 4913449513) BUN (test code = 15 mg/dL 7-23 1984136209) GLUCOSE (test code = 123 mg/dL 70-110 H 4797526196) CREATININE (test code = 0.83 mg/dL 0.50-1.04 5938656844) CALCIUM (test code = 9.5 mg/dL 8.6-10.6 1275961921) eGFR (test code = mL/min/1.73m2 7263214079) ANTHONY (test code = ANTHONY) Association of [...] tests). Lab Interpretation Abnormal (test code = 79807-0) [facility] CenterLipase Kvexw1880-59-49 17:24:49 Test Item Value Reference Range Interpretation Comments LIPASE (test code = 2636464711) 25 U/L 0-220 Lab Interpretation (test code = Normal 35981-5) [facility] CenterCB with Eqwmkjdiyqxm6534-67-53 17:06:22 Test Item Value Reference Range Interpretation Comments WBC (test code = See_Comment [Automated 5690-2) message] The sy stem which generated this result transmitted reference range : 4.30 - 11.10 10*3/?L. The reference range was not used to interpret this result as normal/abnormal . RBC (test code = See_Comment L [Automated 349-8) message] The sy stem which generated this [...] RDW-SD (test code = 46.4 fL 39.0-49.9 67389-7) RDW-CV (test code = 13.3 % 12.0-15.5 788-0) PLT (test code = See_Comment [Automated 777-3) message] The sy stem which generated this result transmitted reference range : 166 - 358 10*3/ ?L. The reference r miky was not used to interpret this result as normal/abnormal . MPV (test code = 10.4 fL 9.5-12.9 33842-5) NRBC/100 WBC (test See_Comment [Automat ed code = 5942402448) message] The system which generated this result transmitted reference range : 0.0 - 10.0 /100 WBCs. The refer ence range was not u sed to interpret th is result as normal/abnormal . NRBC x10^3 (test code <0.01 See_Comment [Auto mated = 8952232043) message] The s ystem which generated this result transmitted reference range : 10*3/?L. The reference range was not used to interpret this result as normal/abnormal . GRAN MAT (NEUT) % 69.6 % (test code = 770-8) IMM GRAN % (test code 0.40 % = 3994771195) LYMPH % (test code = 22.4 % 736-9) MONO % (test code = 7.1 % 5905-5) EOS % (test code = 0.4 % 713-8) BASO % (test code = 0.1 % 706-2) GRAN MAT x10^3(ANC) 5.65 10*3/uL 1.88-7.09 (test code = 4075181222) IMM GRAN x10^3 (test 0.03 10*3/uL 0.00-0.06 code = 7130281249) LYMPH x10^3 (test code 1.82 10*3/uL 1.32-3.29 = 731-0) MONO x10^3 (test code 0.58 10*3/uL 0.33-0.92 = 742-7) EOS x10^3 (test code = 0.03 10*3/uL 0.03-0.39 711-2) BASO x10^3 (test code <0.03 0.01-0.07 = 704-7) Lab Interpretation Abnormal (test code = 54869-1) [facility] ABDOMEN KMOUYSY9321-47-16 18:12:20 Status post cholecystectomy. Mild extra hepatic [...] can been expected finding inthe post cholecystectomy setting.[facility] CenterXR CHEST 1 [id number] 18:03:08Findings and Impression: Clear lungs. No pleural [...] size is normal. No acute osseous abnormality. [facility] ([id number])2019-12-08 17:36:00 Test Item Value Reference Range Interpretation Comments NA (test code = 139 mmol/L 135-145 [id number]) K (test code = 4.2 mmol/L 3.5-5 0286049213) CL (test code = 102 mmol/L 98-108 8976580927) CO2 TOTAL (test code = 27 mmol/L 23-31 5305553224) AGAP (test code = 2-16 3518374763) BUN (test code = 20 mg/dL 7-23 8682104855) GLUCOSE (test code = 105 mg/dL 70-110 0034410639) CREATININE (test code = 1.01 mg/dL 0.5-1.04 8874177348) TOTAL BILI (test code = 0.6 mg/dL 0.1-1.5 4105640981) CALCIUM (test code = 9.9 mg/dL 8.6-10.6 7753294360) T PROTEIN (test code = 8.5 g/dL 6.3-8.2 H 7674572186) ALBUMIN (test code = 4.5 g/dL 3.5-5 6487452649) ALK PHOS (test code = 118 U/L 34-122 3084580992) ALTv (test code = 32 U/L 5-35 1742-6) AST(SGOT) (test code = 39 U/L 13-40 9405766667) eGFR Calculation mL/min/1.73m2 (Non-) (test code = 9042178694) eGFR Calculation mL/min/1.73m2 () (test code = 0272937497) ANTHONY (test code = ANTHONY) Association of [...] tests). Lab Interpretation Abnormal (test code = 76288-4) [facility] [id number] 17:20:00 Test Item Value Reference Range Interpretation Comments APPEARANCE (test code = Hazy Clear A 0626864135) COLOR (test code = Yellow Yellow 6504361654) PH (test code = 4.8-8.0 0907729197) SP GRAVITY (test code = 1.003-1.030 H 0816996549) GLU U QUAL (test code = Normal Normal [id number]) BLOOD (test code = Negative Negative 1057608566) KETONES (test code = Negative Negative 4120943577) PROTEIN (test code = 30 mg/dL Negative A 2887-8) UROBILIN (test code = Normal Normal 5937318340) BILIRUBIN (test code = Negative Negative 2941294465) NITRITE (test code = Negative Negative 2789147705) LEUK MURRAY (test code = 75/uL Negative A 2545831464) RBC/HPF (test code = See_Comment [Autom ated message] 5276970575) The system [employer] ([employer] [employer]) generated this result transmitted ref erence range: 0 - 3 HP F. The reference range was not used to int erpret this result as normal/abnormal . WBC/HPF (test code = See_Comment [Autom ated message] 7870674284) The system [employer] ([employer]) generated this result transmitted ref erence range: 0 - 5 HP F. The reference range was not used to int erpret this result as normal/abnormal . BACTERIA (test code = Negative Negative 4356209111) MUCOUS (test code = Slight Negative LPF A 7410342157) SQ EPITH (test code = HPF 4636866204) HYAL CAST (test code = See_Comment [Aut omated message] 1904274896) The system [employer] ([employer]) generated this result transmitted ref erence range: <=2 LPF. The reference range was not used to int erpret this result as normal/abnormal . Lab Interpretation (test Abnormal code = 26595-8) [facility] WITH [id number] 17:05:00 Test Item Value Reference Range Interpretation [...] RDW-SD (test code = 43.5 fL 39-49.9 13998-9) RDW-CV (test code = 11.9 % 12-15.5 L 788-0) PLT (test code = See_Comment [Automated 777-3) message] The sy stem which generated this result transmitted reference range : 166 - 358 10*3/ ?L. The reference r miky was not used to interpret this result as normal/abnormal . MPV (test code = 10.9 fL 9.5-12.9 72624-7) NRBC/100 WBC (test See_Comment [Automat ed code = 0578328676) message] The system which generated this result transmitted reference range : 0.0 - 10.0 /100 WBCs. The refer ence range was not u sed to interpret th is result as normal/abnormal . NRBC x10^3 (test code <0.01 See_Comment [Auto mated = 1011307360) message] The s ystem which generated this result transmitted reference range : 10*3/?L. The reference range was not used to interpret this result as normal/abnormal . GRAN MAT (NEUT) % 64.8 % (test code = 770-8) IMM GRAN % (test code 0.40 % = 5464788068) LYMPH % (test code = 27.0 % 736-9) MONO % (test code = 6.5 % 5905-5) EOS % (test code = 0.9 % 713-8) BASO % (test code = 0.4 % 706-2) GRAN MAT x10^3(ANC) 4.35 10*3/uL 1.88-7.09 (test code = 7189880305) IMM GRAN x10^3 (test 0.03 10*3/uL 0-0.06 code = 5462211497) LYMPH x10^3 (test code 1.82 10*3/uL 1.32-3.29 = 731-0) MONO x10^3 (test code 0.44 10*3/uL 0.33-0.92 = 742-7) EOS x10^3 (test code = 0.06 10*3/uL 0.03-0.39 711-2) BASO x10^3 (test code 0.03 10*3/uL 0.01-0.07 = 704-7) Lab Interpretation Abnormal (test code = 96786-1) [facility] [id number] 16:59:351. ?Nonobstructive left nephrolithiasis. 2. ?No radiographic [...] PELVISLiver: Hepatic dome is not fully within nekwd-zn-njqf. No focal hepa ticlesions identified within limits [...] PELVISLiver: Hepatic dome is not fully within zceor-ho-pche. No focal hepaticlesions identified within limits of [...] in the left lower lobe, thoughtto be unchanged.[facility] POCT [id number] 16:12:00 Test Item Value Reference Range Interpretation Comments POCT PREG (test code = 1605) negative On board controls acceptable with present C Line (test code = 3574) POCT PREG LOT # (test code = 3575) [id number] POCT PREG TEST DATE (test 05/12/2021 code = 3576) Lab Interpretation (test code = Normal 82637-7) [facility] [id number] 15:17:00 Test Item Value Reference Range Interpretation [...] 3267) Lab Interpretation (test code Abnormal = 25434-2) [facility] [id number] 15:17:00 Test Item Value Reference Range Interpretation [...] 3267) Lab Interpretation (test code Abnormal = 36606-0) [facility] [id number] 19:53:00With seizure protocolThin coronal cuts especially around [...] MDReport Verified Date/Time: 10/25/2018 19:53:41 Reading Location: [address] Neuro Reading Room EEG AWAKE AND [id number] 19:37:00For STAT EEG- after 5 PM weekdays, weekends and holidays, page the on-call EEG TechReason for exam:-& gt;altered mental statusDATE OF EXAMINATION: 10/25/18EEG NO: [id number] 10: R56.9CPT CODE: [id number] SUMMARY:This is a digital EEG recorded with 32 input channels on a GPal system and then reviewed with bipolar and [...] seizure for the symptom(s) of interest. HEMOGLOBIN [id number] 14:02:00 Test Item Value Reference Range Interpretation Comments HEMOGLOBIN A1C (BEAKER) (test code = 5.6 % 4.3-6.1 368) TSH/FREE T4 IF [id number] 06:11:00 Test Item Value Reference Range Interpretation Comments THYROID STIMULATING HORMONE 3.63 uIU/mL 0.35-4.94 (BEAKER) (test code = 772) VITAMIN B12 AND [id number] 06:11:00 Test Item Value Reference Range Interpretation Comments VITAMIN B12 (BEAKER) (test code = 272 pg/mL 213-816 774) FOLATE (BEAKER) (test code = 362) 9.4 ng/mL >=7.0 [id number] 05:58:00 Test Item Value Reference Range Interpretation Comments PHOSPHORUS (BEAKER) (test code = 3.6 mg/dL 2.3-4.7 604) [id number] 05:58:00 Test Item Value Reference Range Interpretation Comments MAGNESIUM (BEAKER) (test code = 2.1 mg/dL 1.6-2.6 627) BASIC METABOLIC [id number] 05:58:00 Test Item Value Reference Range Interpretation [...] NOT APPLICABLE FOR DIALYSIS PATIEN TS. LIPID [id number] 05:58:00 Test Item Value Reference Range Interpretation [...] 130-159 High 160-189 Very High >=190HEPATIC FUNCTION [id number] 05:58:00 Test Item Value Reference Range Interpretation [...] (test code = 413) CT, BRAIN, WITHOUT [id number] 00:33:00FINAL REPORT EXAM: CT, BRAIN, WITHOUT CONTRAST [...] Salazarort Verified Date/Time: 10/25/2018 00:33:20 Reading Location: [facility] [id number] Neuro Reading Room POCT-GLUCOSE [id number] 23:26:00 Test Item Value Reference Range Interpretation Comments POC-GLUCOSE METER 77 mg/dL 70-110 TESTED AT [facility] [address] (BEAKER) (test code = [place] [address] 1538) SCREEN, [id number] 18:06:00 Test Item Value Reference Range Interpretation Comments TEST URINE (BEAKER) (test Negative code = 583) RAPID DRUG SCREEN, [id number] 16:54:00 Test Item Value Reference Range Interpretation [...] situations. Chain of custody not maintained. Some mbdi-boz-rszdniy medications, as well as adulterants, may cause [...] code = 1521) SOURCE(BEAKER) (test code = 1644) B-TYPE NATRIURETIC FACTOR (BNP)2018-10-24 15:41:00 Test Item Value Reference Range Interpretation Comments B-TYPE NATRIURETIC PEPTIDE (BEAKER) < pg/mL 0-100 (test code = 700) BASIC METABOLIC [id number] 15:41:00 Test Item Value Reference Range Interpretation [...] DATA TO CALCULA TE ESTIMATED GFR. TROPONIN [id number] 15:34:00 Test Item Value Reference Range Interpretation [...] acute neurological disease, and persistent tachyarrhythmia.HEPATIC FUNCTION [id number] 15:32:00 Test Item Value Reference Range Interpretation [...] (test code = 51 U/L 6-55 347) [id number] 15:27:00 Test Item Value Reference Range Interpretation Comments ETHANOL (BEAKER) (test code = 400) < mg/dL <=10 POCT-GLUCOSE [id number] 15:15:00 Test Item Value Reference Range Interpretation Comments POC-GLUCOSE METER 82 mg/dL 70-110 TESTED AT [facility] [address] (BEAKER) (test code = [place] [address] 1538) RAD, CHEST, 1 VIEW, NON [id number] 15:13:00Reason for exam:->sobShould this be performed at the bedside?->YesFINAL REPORT INDICATION: sob COMPARISON: None TECHNIQUE: Single frontal view ofthe chest. FINDINGS: Lungs and pleura: Clear lungs. No effusion.Heart and mediastinum: Normal heart size. Unremarkable mediastinal contours.Osseous structures: No acute abnormality.Other: None. IMPRESSION: No acute intrathoracic abnormality. Signed: JR Escobar Robert MDReport Verified Date/Time: 10/24/2018 15:13:38 Reading Location: [facility] Radiology Reading Room CBC W/PLT COUNT & AUTO [id number] 15:06:00 Test Item Value Reference Range Interpretation [...] code = 2801) CT, SPINE, CERVICAL, WO [id number] 15:06:00Reason for exam:->r/o c- spine injuryIs the [...] Selby Verified Date/Time: 10/24/2018 15:06:41 Reading Location: [facility] C013V Neuro Reading Room CT, BRAIN/STROKE [id number] 14:38:00Reason for exam:->r/o cvaIs the patient ?->UnknownWhat [...] Shirley Verified Date/Time: 10/24/2018 14:38:49 Reading Location: [facility] C013W Consult Reading Room "
[2022-12-12] MEDS ORDERED: HYDROMORPHONE HCL 1 MG/ML INJ ONE ×2 (10:47→13:36)
[2022-12-12] MEDS ORDERED: PROMETHAZINE INJ 25 MG/ML AMP ONE (10:47)
[2022-12-12] MEDS ORDERED: NA CHLORIDE 0.9% 2,000 ML ONE (10:47)
[2022-12-12] MEDS ORDERED: FAMOTIDINE 20 MG/2 ML VIAL IV ONE (10:47)
[2022-12-12 10:55] LABS: Absolute Lymphocytes (CBC) 1.2 K/uL (0.7-4.9); Hematocrit 34.1 % (36.0-45.0); Lymphocytes % 19.2 % (15.3-44.8); MCV 97.5 fL (80-100); MPV 7.4 fL (7.6-11.3); Platelets 323 thou/uL (152-406)
[2022-12-12 11:00] LABS: Specific Gravity > 1.030 (1.005-1.030)
[2022-12-12 11:05] LABS: Specific Gravity > 1.030 (1.005-1.030); Transitional Epithelial <5 /HPF (None Seen); Urine Bacteria >50 /HPF (<20); Urine Bilirubin NEGATIVE (Negative); Urine Blood Negative (Negative); Urine Clarity Extremely Turbid (Clear); Urine Color Yellow (Yellow); Urine Glucose NEGATIVE (Negative); Urine Mucus Slight /HPF (None Seen); Urine Protein 1+ (Negative); Urine RBC <5 /HPF (None Seen); Urine Urobilinogen Normal (Normal)
[2022-12-12 11:11] LABS: Albumin 4.6 g/dL (3.4-5.0); Bilirubin Total 0.3 mg/dL (0.2-1.0); Potassium 3.1 mEq/L (3.5-5.1); Protein, Total 8.9 g/dL (6.4-8.2)
[2022-12-12] MEDS ORDERED: POTASSIUM 25 MEQ EFFERV TAB ONE (11:39)
[2022-12-12] MEDS ORDERED: NS KCL 20MEQ 1,000 ML IV ONE (11:39)
--- NOTE | 2022-12-12 11:39 | RAD REPORT ---
EXAM DESCRIPTION: RAD - Abdomen W Erect - 12/12/2022 11:34 am CLINICAL HISTORY: ABD PAIN COMPARISON: No comparisons FINDINGS: Nonobstructive bowel gas pattern. No acute osseous abnormality.Visualized lungs are unrema rkable.No abnormal calcifications. High density material within the colon may be from oral contrast. Surgical clips in right upper quadrant. IMPRESSION: Nonobstructive bowel gas pattern.
--- NOTE | 2022-12-12 13:16 | EDPHYS ---
Physician Documentation [facility] Name: Mckenna Avila Age: 47 yrs Sex: Female : 1975 Arrival Date: 12/12/2022 Time: 09:58 Bed 20 Private MD: DANG Physician Andrés Bishop HPI: 12/12 10:33 This 47 yrs old Female presents to ER via Ambulatory with complaints of april Nausea/Vomiting, Back Pain. 10:33 The patient presents to the emergency department with nausea, vomiting, diarrhea, april abdominal pain, of the right upper quadrant, left upper quadrant, right lower quadrant and left lower quadrant. Onset: The symptoms/episode began/occurred 2 day(s) ago. Possible causes: unknown. The symptoms are aggravated by nothing. The symptoms are alleviated by food . Associated signs and symptoms: Pertinent positives: abdominal pain, diarrhea, nausea, vomiting. Severity of symptoms: in the emergency department the symptoms are unchanged. The patient has experienced similar episodes in the past, a few times. 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 - Social history:: Smoking status: Patient denies any tobacco usage or history of. ROS: 10:36 Constitutional: Negative for fever, chills, and weight loss, Eyes: Negative for injury, april pain, redness, and discharge, ENT: Negative for injury, pain, and discharge, Neck: Negative for injury, pain, and swelling, Cardiovascular: Negative for chest pain, palpitations, and edema, Respiratory: Negative for shortness of breath, cough, wheezing, and pleuritic chest pain, Back: Negative for injury and pain, : Negative for injury, bleeding, discharge, and swelling, MS/Extremity: Negative for injury and deformity, Skin: Negative for injury, rash, and discoloration, Neuro: Negative for headache, weakness, numbness, tingling, and seizure, Psych: Negative for depression, anxiety, suicide ideation, homicidal ideation, and hallucinations, Allergy/Immunology: Negative for hives, rash, and allergies, Endocrine: Negative for neck swelling, polydipsia, polyuria, polyphagia, and marked weight changes, Hematologic/Lymphatic: Negative for swollen nodes, abnormal bleeding, and unusual bruising, 10:36 Abdomen/GI: Positive for abdominal pain, of the right upper quadrant, left upper quadrant, right lower quadrant and left lower quadrant, Exam: 10:36 Constitutional: This is a well developed, well nourished patient who is awake, alert, april and in no acute distress. Head/Face: Normocephalic, atraumatic. Eyes: Pupils equal round and reactive to light, extra-ocular motions intact. Lids and lashes normal. Conjunctiva and sclera are non-icteric and not injected. Cornea within normal limits. Periorbital areas with no swelling, redness, or edema. ENT: Nares patent. No nasal discharge, no septal abnormalities noted. Tympanic membranes are normal and external auditory canals are clear. Oropharynx with no redness, swelling, or masses, exudates, or evidence of obstruction, uvula midline. Mucous membranes moist. Neck: Trachea midline, no thyromegaly or masses palpated, and no cervical lymphadenopathy. Supple, full range of motion without nuchal rigidity, or vertebral point tenderness. No Meningismus. Chest/axilla: Normal chest wall appearance and motion. Nontender with no deformity. No lesions are appreciated. Cardiovascular: Regular rate and rhythm with a normal S1 and S2. No gallops, murmurs, or rubs. Normal PMI, no JVD. No pulse deficits. Respiratory: Lungs have equal breath sounds bilaterally, clear to auscultation and percussion. No rales, rhonchi or wheezes noted. No increased work of breathing, no retractions or nasal flaring. Back: No spinal tenderness. No costovertebral tenderness. Full range of motion. Skin: Warm, dry with normal turgor. Normal color with no rashes, no lesions, and no evidence of cellulitis. MS/ Extremity: Pulses equal, no cyanosis. Neurovascular intact. Full, normal range of motion. Neuro: Awake and alert, GCS 15, oriented to person, place, time, and situation. Cranial nerves II-XII grossly intact. Motor strength 5/5 in all extremities. Sensory grossly intact. Cerebellar exam normal. Normal gait. Psych: Awake, alert, with orientation to person, place and time. Behavior, mood, and affect are within normal limits. 10:36 Abdomen/GI: Inspection: abdomen appears normal, Bowel sounds: normal, Palpation: moderate abdominal tenderness, in all quadrants, Liver: no appreciated palpable abnormalities, Hernia: not appreciated, Vital Signs: 10:26 BP 165 / 84; Pulse 84; Resp 18; Temp 97.8; Pulse Ox 100% on R/A; Weight 77.11 kg; mb9 Height 5 ft. 7 in. ; Pain 8/10; 12:28 BP 184 / 94; Pulse 71; Resp 18; Pulse Ox 100% on R/A; mb9 13:29 BP 176 / 66; Pulse 84; Resp 18; Pulse Ox 99% ; mb9 10:26 Body Mass Index 26.63 (77.11 kg, 170.18 cm) mb9 10:26 Pain Scale: Adult mb9 MDM: 10:10 Patient medically screened. april 10:21 Patient medically screened. april 10:37 Differential diagnosis: Nonspecific abd pain, gastritis, pancreatitis, viral april gastroenteritis, gastroenteritis, bowel obstruction, diverticulitis. Data reviewed: vital signs, nurses notes, lab test result(s), EKG, radiologic studies, plain films. Consideration of Admission/Observation Escalation of care including admission/observation considered. I considered the following discharge prescriptions or medication management in the emergency department Medications were administered in the Emergency Department. See MAR. Independent interpretation of the following test(s) in the Emergency Department X-Ray: My interpretation is flat and up right. Test considered but Not performed: CT: no ct ab/pelvis. Care significantly affected by the following chronic conditions: crohns, stones,gca,dvt. 10:40 Historians other than the Patient: Spouse/Significant Other: well informed. [facility] 12/12 10:30 Order name: CBC with Diff; Complete Time: 11:40 [facility] 12/12 10:30 Order name: CMP; Complete Time: 11:13 [facility] 12/12 10:30 Order name: Lipase; Complete Time: 11:13 [facility] 12/12 10:30 Order name: Test, Urine; Complete Time: 11:13 [facility] 12/12 10:30 Order name: Urinalysis w/ reflexes; Complete Time: 11:13 [facility] 12/12 11:15 Order name: Urine Culture [facility] 12/12 10:30 Order name: Abdomen with Erect XRAY; Complete Time: 12:18 [facility] 12/12 10:30 Order name: IV Saline Lock; Complete Time: 11:16 [facility] 12/12 10:30 Order name: Labs collected and sent; Complete Time: 10:53 [facility] Administered Medications: 11:10 Drug: NS 0.9% IV 1000 ml IV at 1 bolus Per protocol; 1000 mL bolus Route: IV; Rate: 1 mb9 bolus; Site: right upper arm; 13:41 Follow up: Response: No adverse reaction; IV Status: Completed infusion mb9 11:10 Drug: NS 0.9% IV 1000 ml IV at 1 bolus Per protocol; 1000 mL bolus Route: IV; Rate: 1 mb9 bolus; Site: right upper arm; 12:28 Follow up: Response: No adverse reaction; IV Status: Completed infusion mb9 11:11 Drug: Promethazine IVP 25 mg IVP once Route: IVP; Site: right upper arm; mb9 12:28 Follow up: Response: No adverse reaction mb9 11:13 Drug: Famotidine IVP 20 mg IVP once; dilute with 10 mL 0.9% NaCl; give over 2 minutes mb9 Route: IVP; Site: right upper arm; 12:28 Follow up: Response: No adverse reaction mb9 11:17 Drug: HYDROmorphone IVP 1 mg IVP once Route: IVP; Site: right upper arm; mb9 12:28 Follow up: Response: No adverse reaction mb9 11:32 Drug: NS 0.9% with KCl IV 20 mEq/L 1000 ml IV at 500 ml/hr continuous Route: IV; Rate: mb9 500 ml/hr; Site: right upper arm; 13:41 Follow up: Response: No adverse reaction; IV Status: Completed infusion mb9 11:32 Drug: Potassium PO Effervescent Tablet 25 mEq PO once; dissolve in 4 ounces of water or mb9 juice Route: PO; 12:28 Follow up: Response: No adverse reaction mb9 13:20 Drug: metoCLOPramide IVP 10 mg IVP once; over 1 to 2 minutes Route: IVP; Site: right [facility] upper arm; 13:41 Follow up: Response: No adverse reaction mb9 13:25 Drug: HYDROmorphone IVP 1 mg IVP once Route: IVP; Site: right upper arm; mb9 13:41 Follow up: Response: No adverse reaction mb9 Disposition Summary: 12/12/22 13:16 Discharge Ordered Notes: Location: Home april Problem: new april Symptoms: have improved april Condition: Stable april Diagnosis - Abdominal pain, Generalized april - Vomiting april - Diarrhea, unspecified april - Hypokalemia april - UTI/ Urinary tract infection, site not specified april - Crohn's disease, unspecified, without complications - HISTORY OF april Followup: april - With: Private Physician - When: 2 - 3 days - Reason: Recheck today's complaints, Continuance of care, Re-evaluation by your physician Followup: april - With: Manuel Ferris MD - When: 2 - 3 days - Reason: Recheck today's complaints, Re-evaluation by your physician Discharge Instructions: - Discharge Summary Sheet april - Abdominal Pain, Adult april - Food Choices to Help Relieve Diarrhea, Adult april - Diarrhea, Adult april - Potassium Content of Foods april - Urinary Tract Infection, Adult april - Urinary Tract Infection, Adult, Elby-bn-Njla april - Abdominal Pain, Adult, Bfsi-el-Hvmz april - Hypokalemia april - Vomiting, Adult april Forms: - Medication Reconciliation Form [facility] - Thank You Letter [facility] - Antibiotic Education [facility] - Prescription Opioid Use [facility] - Patient Portal Instructions [facility] - Leadership Thank You Letter [facility] Prescriptions: - promethazine 50 mg Rectal suppository - insert 1 suppository RECTAL route every 6 to 8 hours as needed for sedation; 15 april suppository; Refills: 0, Product Selection Permitted - Bactrim DS 800-160 mg Oral Tablet - take 1 tablet ORAL route every 12 hours for 7 days; 14 tablet; Refills: 0, [facility] Product Selection Permitted - promethazine 25 mg Oral Tablet - take 1 tablet ORAL route every 6 hours As needed; 20 tablet; Refills: 0, [facility] Product Selection Permitted - dicyclomine 10 mg/5 mL Oral solution - take 10 milliliters ORAL route 4 times per day; 200 milliliter; Refills: 0, [facility] Product Selection Permitted Signatures: Dispatcher [employer] Andrés Smith MD MD cha Breneman, Mary Beth, RN RN mb9
--- NOTE | 2022-12-12 13:16 | ER ---
Nurse's Notes [facility] Name: Mckenna Avila Age: 47 yrs Sex: Female : 1975 Arrival Date: 12/12/2022 Time: 09:58 Bed 20 Private MD: Diagnosis: Abdominal pain, Generalized;Vomiting;Diarrhea, unspecified;Hypokalemia;UTI/ Urinary tract infection, site not specified;Crohn's disease, unspecified, without complications-HISTORY OF Presentation: 12/12 10:26 Chief complaint: Patient states: "I've had N/V/D since Sunday. My daughter has a mb9 stomach virus and I think I have that. I've vomited about 8-10 times in the past 24 hrs. My stomach hurts". Coronavirus screen: Vaccine status: Patient reports receiving the 2nd dose of the covid vaccine. Ebola Screen: No symptoms or risks identified at this time. Initial Sepsis Screen: Does the patient meet any 2 criteria? No. Patient's initial sepsis screen is negative. Does the patient have a suspected source of infection? No. Patient's initial sepsis screen is negative. Risk Assessment: Do you want to hurt yourself or someone else? Patient reports no desire to harm self or others. Onset of symptoms was December 12, 2022. 10:26 Method Of Arrival: Ambulatory 9 10:26 Acuity: KEIKO 3 mb9 Triage Assessment: 10:29 General: Appears uncomfortable, Behavior is cooperative. Pain: Complains of pain in mb9 abdomen Pain does not radiate. Pain currently is 8 out of 10 on a pain scale. Quality of pain is described as aching, throbbing, Pain began 2-3 days ago. Is intermittent. EENT: No signs and/or symptoms were reported regarding the EENT system. Neuro: Haro Agitation-Sedation Scale (RASS): 0 - Alert and Calm Level of Consciousness is awake, alert, obeys commands, Oriented to person, place, time, situation, Appropriate for age. Cardiovascular: Heart tones S1 S2 present Patient's skin is warm and dry. Respiratory: Airway is patent Respiratory effort is even, unlabored, Respiratory pattern is regular, symmetrical, Breath sounds are clear bilaterally. GI: Abdomen is round non-distended, Bowel sounds present X 4 quads. Abd is soft Abdomen is tender to palpation in right upper quadrant, right lower quadrant and left lower quadrant Reports diarrhea, nausea, vomiting. : No signs and/or symptoms were reported regarding the genitourinary system. Derm: Skin is pink, warm \\T\\ dry. Musculoskeletal: Range of motion: intact in all extremities. 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 - Social history:: Smoking status: Patient denies any tobacco usage or history of. Screenin:31 [facility] ED Fall Risk Assessment (Adult) History of falling in the last 3 months, mb9 including since admission No falls in past 3 months (0 pts) Confusion or Disorientation No (0 pts) Intoxicated or Sedated No (0 pts) Impaired Gait No (0 pts) Mobility Assist Device Used No (0 pt) Altered Elimination No (0 pt) Score/Fall Risk Level 0 - 2 = Low Risk Oriented to surroundings, Maintained a safe environment, Educated pt \\T\\ family on fall prevention, incl call for assistance when getting out of bed. Abuse screen: Denies threats or abuse. Nutritional screening: No deficits noted. Tuberculosis screening: No symptoms or risk factors identified. Assessment: 10:30 Reassessment: see triage assessment. mb9 12:23 Reassessment: No changes from previously documented assessment. Patient and/or family mb9 updated on plan of care and expected duration. Pain level reassessed. Patient is alert, oriented x 3, equal unlabored respirations, skin warm/dry/pink. 13:42 Reassessment: Patient and/or family updated on plan of care and expected duration. Pain mb9 level reassessed. Patient is alert, oriented x 3, equal unlabored respirations, skin warm/dry/pink. Patient states feeling better. Patient states symptoms have improved. Vital Signs: 10:26 BP 165 / 84; Pulse 84; Resp 18; Temp 97.8; Pulse Ox 100% on R/A; Weight 77.11 kg; mb9 Height 5 ft. 7 in. ; Pain 8/10; 12:28 BP 184 / 94; Pulse 71; Resp 18; Pulse Ox 100% on R/A; mb9 13:29 BP 176 / 66; Pulse 84; Resp 18; Pulse Ox 99% ; mb9 10:26 Body Mass Index 26.63 (77.11 kg, 170.18 cm) mb9 10:26 Pain Scale: Adult mb9 ED Course: 10:03 Patient arrived in ED. kj1 10:10 Andrés Bishop MD is Attending Physician. april 10:26 Nikki Stern RN is Primary Nurse. mb9 10:26 Arm band placed on. mb9 10:28 Triage completed. mb9 10:30 Placed in gown. Bed in low position. Call light in reach. Side rails up X 1. Client mb9 placed on continuous cardiac and pulse oximetry monitoring. NIBP monitoring applied. 10:31 No provider procedures requiring assistance completed. mb9 10:48 Missed attempt(s): 22 gauge in right antecubital area. Bleeding controlled, band aid mb9 applied, catheter tip intact. 10:53 CBC with Diff Sent. mb9 10:53 CMP Sent. mb9 10:53 Lipase Sent. mb9 10:53 Test, Urine Sent. mb9 10:53 Urinalysis w/ reflexes Sent. mb9 10:56 Missed attempt(s): 22 gauge in right forearm. ds4 11:08 Inserted saline lock: 20 gauge in right upper arm, using aseptic technique. ,using nj1 aseptic technique. Ultrasound guided. Catheter tip well visualized within vasculature during placement. Blood collected. 11:32 Urine Culture Sent. mb9 11:36 Abdomen with Erect XRAY In Process Unspecified. EDMS 12:55 Changed dressing on right peripheral line saline lock Upper arm Flushed right nj1 peripheral line with 10 ml NS. 13:15 Manuel Ferris MD is Referral Physician. april 13:42 IV discontinued, intact, bleeding controlled, No redness/swelling at site. Pressure mb9 dressing applied. Administered Medications: 11:10 Drug: NS 0.9% IV 1000 ml IV at 1 bolus Per protocol; 1000 mL bolus Route: IV; Rate: 1 mb9 bolus; Site: right upper arm; 13:41 Follow up: Response: No adverse reaction; IV Status: Completed infusion mb9 11:10 Drug: NS 0.9% IV 1000 ml IV at 1 bolus Per protocol; 1000 mL bolus Route: IV; Rate: 1 mb9 bolus; Site: right upper arm; 12:28 Follow up: Response: No adverse reaction; IV Status: Completed infusion mb9 11:11 Drug: Promethazine IVP 25 mg IVP once Route: IVP; Site: right upper arm; mb9 12:28 Follow up: Response: No adverse reaction mb9 11:13 Drug: Famotidine IVP 20 mg IVP once; dilute with 10 mL 0.9% NaCl; give over 2 minutes mb9 Route: IVP; Site: right upper arm; 12:28 Follow up: Response: No adverse reaction mb9 11:17 Drug: HYDROmorphone IVP 1 mg IVP once Route: IVP; Site: right upper arm; mb9 12:28 Follow up: Response: No adverse reaction mb9 11:32 Drug: NS 0.9% with KCl IV 20 mEq/L 1000 ml IV at 500 ml/hr continuous Route: IV; Rate: mb9 500 ml/hr; Site: right upper arm; 13:41 Follow up: Response: No adverse reaction; IV Status: Completed infusion mb9 11:32 Drug: Potassium PO Effervescent Tablet 25 mEq PO once; dissolve in 4 ounces of water or mb9 juice Route: PO; 12:28 Follow up: Response: No adverse reaction mb9 13:20 Drug: metoCLOPramide IVP 10 mg IVP once; over 1 to 2 minutes Route: IVP; Site: right [facility] upper arm; 13:41 Follow up: Response: No adverse reaction mb9 13:25 Drug: HYDROmorphone IVP 1 mg IVP once Route: IVP; Site: right upper arm; mb9 13:41 Follow up: Response: No adverse reaction mb9 Medication: 10:31 VIS not applicable for this client. mb9 Outcome: 13:16 Discharge ordered by MD. chen 13:54 Discharged to home ambulatory, mb9 13:54 Condition: stable 13:54 Discharge instructions given to patient, Instructed on discharge instructions, follow up and referral plans. Demonstrated understanding of instructions, follow-up care, medications, Prescriptions given X 4, 13:54 Patient left the ED. ham9 Signatures: Dispatcher [employer] Andrés Smith MD MD cha Swanson, Donovan ds4 Shanae Beckford kj1 Nikki Stern RN RN mb9 Gifty Lowe RN RN nj1
[2022-12-12] MEDS ORDERED: METOCLOPRAMIDE 10 MG/2mL INJ ONE (13:36)
[2022-12-12 14:07] VITALS: TEMP 97.8
[2022-12-12 14:22] VITALS: BP 176/66; O2SAT 99
== END 2022-12-12 13:54 | disposition home or self-care (01) ==
LOC: ER 09:58
DX: R10.84 Generalized abdominal pain (principal); E87.6 Hypokalemia; N39.0 Urinary tract infection, site not specified; R11.10 Vomiting, unspecified; R19.7 Diarrhea, unspecified; K50.90 Crohn's disease, unspecified, without complications; Z86.718 Personal history of other venous thrombosis and embolism; Z79.01 Long term (current) use of anticoagulants; Z88.1 Allergy status to other antibiotic agents
CPT/HCPCS: 96361; 87088; 85025; 81001; 87086; 36415; 81025; 87077; 87186; 83690; 80053; 74019; 96375; 96374; 99284; J2550; J2765; J1170 ×2; J7030; J3480

== ENCOUNTER 2022-12-28 09:40 | Day surgery (SDC) | payer BC ==
[2022-12-28] MEDS ORDERED: PROMETHAZINE INJ 25 MG/ML AMP ONE (10:03)
[2022-12-28] MEDS ORDERED: DIPHENHYDRAMINE 25 MG TAB/CAP ONE (10:04)
[2022-12-28] MEDS ORDERED: NA CHLORIDE 0.9% 250 ML ONE (10:27)
[2022-12-28] MEDS ORDERED: INFLIXIMAB-ABDA 700 MG in NA CHLORIDE 0.9% 250 ML IV ONE ×2 (10:30→11:30)
[2022-12-28 11:38] VITALS: BMI 25.8
[2022-12-28 14:19] VITALS: BP 170/90; TEMP 98; O2SAT 100
== END 2022-12-28 12:45 | disposition home or self-care (01) ==
LOC: DS 09:40
PROVIDERS: ATTEND Internal Medicine Gastroenterology
DX: K50.911 Crohn's disease, unspecified, with rectal bleeding (principal)
CPT/HCPCS: 96365; 96366; J2550; Q5104; J7050 ×2

== ENCOUNTER → 2023-02-08 | Day surgery (SDC) | payer BC ==
[~2023-02-08] MED LIST changes: +INFLIXIMAB IV ONE; -INFLIXIMAB-ABDA 700 MG in NA CHLORIDE 0.9% 250 ML IV ONE; +NA CHLORIDE 0.9% IV ONE; +PROMETHAZINE 25 MG TABLET PO ONE
[2023-02-08 12:01] VITALS: BP 85/58; TEMP 97.7; O2SAT 100; BMI 29.8
== END ==
LOC: DS 09:01
PROVIDERS: ATTEND Internal Medicine Gastroenterology
DX: K50.911 Crohn's disease, unspecified, with rectal bleeding (principal); Z53.9 Procedure and treatment not carried out, unspecified reason
CPT/HCPCS: J1745; J7050

== ENCOUNTER 2023-03-19 09:11 | Day surgery (SDC) | payer BC ==
[2023-03-19] MEDS ORDERED: NA CHLORIDE 0.9% 250 ML ONE (09:33)
[2023-03-19] MEDS ORDERED: DIPHENHYDRAMINE 25 MG TAB/CAP ONE (09:39)
[2023-03-19] MEDS ORDERED: ACETAMINOPHEN 500 MG TAB ONE (09:40)
[2023-03-19] MEDS ORDERED: PROMETHAZINE INJ 25 MG/ML AMP ONE (09:41)
[2023-03-19] MEDS ORDERED: NA CHLORIDE 0.9% IV ONE (10:00)
[2023-03-19] MEDS ORDERED: INFLIXIMAB IV ONE (10:00)
[2023-03-19 10:31] VITALS: O2SAT 100; BMI 24.3
[2023-03-19 13:08] VITALS: BP 151/74; TEMP 98.4
== END 2023-03-19 12:35 | disposition home or self-care (01) ==
LOC: DS 09:11
PROVIDERS: ATTEND Internal Medicine Gastroenterology
DX: K50.911 Crohn's disease, unspecified, with rectal bleeding (principal)
CPT/HCPCS: 96365; 96366; J2550; J1745; J7050 ×2

== ENCOUNTER 2023-04-19 09:29 | Day surgery (SDC) | payer BC ==
[2023-04-19] MEDS ORDERED: DIPHENHYDRAMINE 25 MG TAB/CAP ONE (09:40)
[2023-04-19] MEDS ORDERED: ACETAMINOPHEN 500 MG TAB ONE (09:40)
[2023-04-19] MEDS ORDERED: NA CHLORIDE 0.9% 500 ML ONE (09:41)
[2023-04-19] MEDS ORDERED: LIDOCAINE 1% 20 ML MDV ONE (09:48)
[2023-04-19] MEDS ORDERED: NA CHLORIDE 0.9% IV ONE (10:00)
[2023-04-19] MEDS ORDERED: INFLIXIMAB IV ONE (10:00)
[2023-04-19] MEDS ORDERED: PROMETHAZINE INJ 25 MG/ML AMP ONE (10:05)
[2023-04-19 11:24] VITALS: O2SAT 100; BMI 23.5
[2023-04-19 12:25] VITALS: BP 95/55; TEMP 97.5
== END 2023-04-19 13:00 | disposition home or self-care (01) ==
LOC: DS 09:29
PROVIDERS: ATTEND Internal Medicine Gastroenterology
DX: K50.911 Crohn's disease, unspecified, with rectal bleeding (principal)
CPT/HCPCS: 96365; 96366; J2550; J1745; J2001; J7050; J7040

== ENCOUNTER → 2023-05-01 | Emergency (ER) | payer BC ==
[~2023-05-01] MED LIST changes: +CEFTRIAXONE 1000 MG/VIAL ONE; -INFLIXIMAB IV ONE; +MORPHINE 2 MG/ML SYR ONE; +MORPHINE 4 MG/ML SYR ONE; +NA CHLORIDE 0.9% 1,000 ML ONE; +NA CHLORIDE 0.9% 50 ML ONE; -NA CHLORIDE 0.9% IV ONE; +ONDANSETRON 4 MG/2 ML VIAL ONE; -PROMETHAZINE 25 MG TABLET PO ONE; +PROMETHAZINE INJ 25 MG/ML AMP ONE
[2023-05-01 09:41] LABS: Absolute Lymphocytes (CBC) 0.6 K/uL (0.7-4.9); Absolute Monocytes 0.3 K/uL (0.1-1.3); Absolute Neutrophil 6.5 K/uL (1.8-8.0); Basophils % 0.1 % (0-1.3); Eosinophils % 0.7 % (0-4.4); Hematocrit 32.3 % (36.0-45.0); Hemoglobin 10.9 g/dL (12.0-15.0); Lymphocytes % 7.9 % (15.3-44.8); MCH 34.6 pg (27.0-35.0); MCHC 33.8 g/dL (32.0-36.0); MCV 102.4 fL (80-100); MPV 7.5 fL (7.6-11.3); Monocytes % 3.4 % (3.3-12.3); Neutrophils % 87.9 % (41.7-73.7); Nucleated Red Blood Cells % 0.2 % (0-0); Platelets 300 thou/uL (152-406); RBC Red Blood Cell Count 3.16 M/uL (3.86-4.86); Red Cell Distribution Width 15.6 % (12.1-15.2)
[2023-05-01 09:59] LABS: Albumin 3.8 g/dL (3.4-5.0); Albumin/Globulin Ratio 0.8 (1.1-1.8); Anion Gap 9.6 mEq/L (5.0-15.0); Bilirubin Total 0.3 mg/dL (0.2-1.0); Globulin 4.9 g/dL (2.3-3.5); Potassium 3.6 mEq/L (3.5-5.1); Protein, Total 8.7 g/dL (6.4-8.2)
[2023-05-01 11:01] LABS: Specific Gravity > 1.030 (1.005-1.030); Sqamous Epithelial <5 /HPF (None Seen); Urine Bacteria >50 /HPF (<20); Urine Bilirubin NEGATIVE (Negative); Urine Blood 3+ (Negative); Urine Clarity Extremely Turbid (Clear); Urine Color Yellow (Yellow); Urine Culture Reflex Order REFLEXED; Urine Glucose NEGATIVE (Negative); Urine Ketones TRACE (Negative); Urine Microscopic Reflex YN ORDER UMIC; Urine Mucus Slight /HPF (None Seen); Urine Nitrite 1+ (Negative); Urine Protein 1+ (Negative); Urine RBC 21-50 /HPF (None Seen); Urine Urobilinogen Normal (Normal); Urine WBC 20-50 /HPF (<5)
--- NOTE | 2023-05-01 11:01 | RAD REPORT ---
EXAM DESCRIPTION: CT - Abdomen Pelvis W Contrast - 05/01/2023 10:11 am CLINICAL HISTORY: hx of crohn's;Abd pain COMPARISON: Abdomen Pelvis W Contrast dated 09/23/2022; Abdomen Pelvis W Contrast dated 05/24/2022 ; Abdomen Pelvis W Contrast dated 09/30/2021; Abdomen Pelvis W Contrast dated 08/30/2021 TECHNIQUE: Thin cut axial CT imaging of the abdomen and pelvis was performed following intravenous a dministration of 100 mL Isovue 300. Multiplanar reformats were generated and reviewed. All CT scans are performed using dose optimization technique as appropriate and may include automated exposure control or mA/KV adjustment according to patient size. FINDINGS: No suspicious findings in the lung bases. The liver, spleen, adrenal glands, and pancreas show no suspicious findings. Gallbladder was surgical ly removed. Stable dilation of the common bile duct measuring 1.3 mm, and stable mild central intrahe patic biliary ductal dilation. Symmetric renal function is seen with no hydronephrosis or suspicious renal mass. Stable calcificatio ns along the tips of the left renal pyramids, up to 3 mm, may represent calculi or sequelae of papill dar necrosis. No dilated bowel loops or bowel wall thickening. No free air, free fluid or inflammatory stranding. N o hernia, mass or bulky lymphadenopathy. The urinary bladder demonstrates a small air-fluid level, wi thout other discrete abnormality. No suspicious bony findings. IMPRESSION: Small air-fluid level within the urinary bladder. Please correlate for history of recent catheterization. If no such history exists, the finding may relate to ongoing cystitis. No other acute intra-abdominal process. Other stable Findings as above.
--- NOTE | 2023-05-01 11:10 | ER ---
Nurse's Notes [facility] Name: Mckenna Avila Age: 47 yrs Sex: Female : 1975 Arrival Date: 05/01/2023 Time: 08:07 Bed 20 Private MD: Diagnosis: Acute cystitis without hematuria;Abdominal pain, unspecified Presentation: 04/30 08:14 Chief complaint: Patient states: B flank pain, N/V, abdominal pain since Sunday. jj7 Fever off/on. Coronavirus screen: Client denies travel out of the [place] in the last 14 days. At this time, the client does not indicate any symptoms associated with coronavirus-19. Ebola Screen: Patient denies travel to an Ebola-affected area in the 21 days before illness onset. Initial Sepsis Screen: Does the patient meet any 2 criteria? No. Patient's initial sepsis screen is negative. Does the patient have a suspected source of infection? No. Patient's initial sepsis screen is negative. Risk Assessment: Do you want to hurt yourself or someone else? Patient reports no desire to harm self or others. Onset of symptoms was April 28, 2023. 08:14 Method Of Arrival: Ambulatory [facility] 08:14 Acuity: KEIKO 3 jj7 Triage Assessment: 08:16 General: Appears uncomfortable, Behavior is calm, cooperative, appropriate for age. jj7 General: Reports feeling ill for fatigue for. Pain: Complains of pain in abdomen Quality of pain is described as aching, crampy. GI: Reports lower abdominal pain, upper abdominal pain, cramping, nausea, vomiting. : Reports oliguria. Historical: - Allergies: 08:13 Ciprofloxacin; jj7 08:13 Omnicef; jj7 - PMHx: 08:13 chrons disease; DVT; GCA; Kidney stones; Rheumatoid Arthritis; jj7 - PSHx: 08:13 Cholecystectomy; hysterectomy; jj7 - Immunization history:: Adult Immunizations up to date. - Social history:: Smoking status: Patient denies any tobacco usage or history of. - Family history:: not pertinent. - Hospitalizations: : No recent hospitalization is reported. Screenin:35 [facility] ED Fall Risk Assessment (Adult) History of falling in the last 3 months, nj1 including since admission No falls in past 3 months (0 pts) Confusion or Disorientation No (0 pts) Intoxicated or Sedated No (0 pts) Impaired Gait No (0 pts) Mobility Assist Device Used No (0 pt) Altered Elimination No (0 pt) Score/Fall Risk Level 0 - 2 = Low Risk Oriented to surroundings, Maintained a safe environment, Hourly rounding (assess needs \T\ fall precautionary measures) done. Abuse screen: Denies threats or abuse. Denies injuries from another. Nutritional screening: No deficits noted. Tuberculosis screening: No symptoms or risk factors identified. Assessment: 09:35 General: Appears in no apparent distress. uncomfortable, Behavior is calm, cooperative, nj1 appropriate for age. Pain: Complains of pain in abdomen Pain currently is 8 out of 10 on a pain scale. Neuro: Level of Consciousness is awake, alert, obeys commands, Oriented to person, place, time, situation. Cardiovascular: Patient's skin is warm and dry. Respiratory: Airway is patent Respiratory effort is even, unlabored. GI: Reports lower abdominal pain, upper abdominal pain, diarrhea, nausea, vomiting. 10:45 Reassessment: Patient appears in no apparent distress at this time. No changes from [facility] previously documented assessment. Patient and/or family updated on plan of care and expected duration. Pain level reassessed. Patient is alert, oriented x 3, equal unlabored respirations, skin warm/dry/pink. 11:45 Reassessment: Patient appears in no apparent distress at this time. Patient and/or nj1 family updated on plan of care and expected duration. Pain level reassessed. Patient is alert, oriented x 3, equal unlabored respirations, skin warm/dry/pink. Vital Signs: 08:14 BP 181 / 95; Pulse 93; Resp 18; Temp 98.2; Pulse Ox 100% ; jj7 10:45 BP 154 / 97; Pulse 76; Resp 18; Pulse Ox 100% ; Pain 9/10; nj1 11:36 Pain 8/10; nj1 11:45 BP 168 / 103; Pulse 79; Resp 18; Pulse Ox 100% ; Pain 8/10; nj1 10:45 Pain Scale: Adult nj1 11:36 Pain Scale: Adult nj1 11:45 Pain Scale: Adult nj1 ED Course: 08:10 Patient arrived in ED. rg4 08:13 Hector Love MD is Attending Physician. rn 08:16 Triage completed. jj7 08:17 Arm band placed on Patient placed in an internal wait recliner, in a wheelchair. jj7 09:10 Gifty Lowe, SISSY is Primary Nurse. nj1 09:25 Inserted saline lock: 20 gauge in right upper arm, using aseptic technique. Blood nj1 collected. 09:37 Patient has correct armband on for positive identification. Bed in low position. Call nj1 light in reach. Placed in gown. Provided Education on: call light, fall precautions. Door closed. Lights dimmed. 10:13 CT Abd/Pelvis - IV Contrast Only In Process Unspecified. EDMS 11:44 Notified ED physician of other pt requesting pain medication, orders received. nj1 12:00 No provider procedures requiring assistance completed. nj1 12:00 IV discontinued, intact, bleeding controlled, Pressure dressing applied. nj1 Administered Medications: 09:25 Drug: NS 0.9% IV 1000 ml IV at 1 bolus Per protocol; 1000 mL bolus Route: IV; Rate: 1 nj1 bolus; Site: right upper arm; 10:30 Follow up: Response: No adverse reaction; IV Status: Completed infusion; IV Intake: nj1 1000ml 09:26 Drug: Ondansetron IVP 4 mg IVP once; over 2 minutes Route: IVP; Site: right upper arm; nj1 10:25 Follow up: Response: Nausea unchanged nj1 09:28 Drug: morphine IVP or IV 4 mg IVP once over 4 mins Route: IVP; Infused Over: 4 mins; nj1 Site: right upper arm; 10:25 Follow up: Response: No adverse reaction; Pain is unchanged, physician notified nj1 10:45 Drug: morphine IVP or IV 4 mg IVP once over 4 mins Route: IVP; Infused Over: 4 mins; nj1 Site: right upper arm; 11:36 Follow up: Pain 8/10 Adult; Response: No adverse reaction; Pain is decreased nj1 10:49 Drug: Promethazine IVP 12.5 mg IVP once Route: IVP; Site: right upper arm; nj1 11:35 Follow up: Response: No adverse reaction; Nausea is decreased nj1 11:34 Drug: Rocephin IV 1 grams IV at calculated rate once; Given slow IV push per pharmacy nj1 instructions Route: IV; Rate: calculated rate; Site: right upper arm; 12:00 Follow up: Response: No adverse reaction; IV Status: Completed infusion; IV Intake: [id number] 12:00 Drug: morphine IVP or IV 2 mg IVP once over 4 mins Route: IVP; Infused Over: 4 mins; nj1 Site: right upper arm; Medication: 12:06 VIS not applicable for this client. nj1 Intake: 10:30 IV: 1000ml; Total: 1000ml. nj1 12:00 IV: 50ml; Total: 1050ml. nj1 Outcome: 11:09 Discharge ordered by . rn 12:06 Discharged to home ambulatory, with family, nj1 12:06 Condition: stable 12:06 Discharge instructions given to patient, Instructed on discharge instructions, follow up and referral plans. medication usage, Demonstrated understanding of instructions, follow-up care, medications, Prescriptions given X 2, 12:07 Patient left the ED. nj1 Signatures: Dispatcher [employer] EDMS Hector Love MD MD rn Garcia, Rubi rg4 Martine Ramos RN RN jj7 Gifty Lowe RN RN nj1
--- NOTE | 2023-05-01 11:10 | EDPHYS ---
[facility] Name: Mckenna Avila Age: 47 yrs Sex: Female : 1975 Arrival Date: 05/01/2023 Time: 08:07 Bed 20 Private MD: ED Physician Hector Love HPI: 04/30 08:41 This 47 yrs old Female presents to ER via Ambulatory with complaints of Abdominal Pain, rn Flank Pain, Nausea/Vomiting. 08:41 The patient presents with abdominal pain. Onset: The symptoms/episode began/occurred 3 rn day(s) ago. The symptoms radiate to back. Associated signs and symptoms: Pertinent positives: nausea and vomiting, Pertinent negatives: blood in stools, chest pain, fever. The symptoms are described as crampy, intermittent. Modifying factors: The symptoms are alleviated by nothing, the symptoms are aggravated by nothing. Severity of pain: At its worst the pain was moderate in the emergency department the pain is unchanged. The patient has experienced similar episodes in the past. The patient has not recently seen a physician. Patient reports diffuse abdominal pain that radiates to the back. Has been going on for 3 days now. Has a history of Crohn's, kidney stones, recurrent urine infections and does not know which this feels more like. No fever or chills. Reports nausea and vomiting. No blood in stool. Denies trauma.. Historical: - Allergies: 08:13 Ciprofloxacin; jj7 08:13 Omnicef; jj7 - PMHx: 08:13 chrons disease; DVT; GCA; Kidney stones; Rheumatoid Arthritis; jj7 - PSHx: 08:13 Cholecystectomy; hysterectomy; jj7 - Immunization history:: Adult Immunizations up to date. - Social history:: Smoking status: Patient denies any tobacco usage or history of. - Family history:: not pertinent. - Hospitalizations: : No recent hospitalization is reported. ROS: 08:41 Constitutional: Negative for fever, chills, and weight loss, Cardiovascular: Negative rn for chest pain, palpitations, and edema, Respiratory: Negative for shortness of breath, cough, wheezing, and pleuritic chest pain, Abdomen/GI: Positive for abdominal pain and nausea/vomiting Back: Positive for mid back pain : Negative for injury, bleeding, discharge, and swelling, MS/Extremity: Negative for injury and deformity, Skin: Negative for injury, rash, and discoloration, Neuro: Negative for headache, weakness, numbness, tingling, and seizure, Exam: 08:41 Constitutional: This is a well developed, well nourished patient who is awake, alert, rn and in no acute distress. Head/Face: Normocephalic, atraumatic. Cardiovascular: Regular rate and rhythm. No pulse deficits. Respiratory: No increased work of breathing, no retractions or nasal flaring. Abdomen/GI: Soft, mild abdominal tenderness in all 4 quadrants. No rebound or guarding. No masses. Back: Mild CVA tenderness right side MS/ Extremity: Pulses equal, no cyanosis. Neuro: Awake and alert, GCS 15 Vital Signs: 08:14 BP 181 / 95; Pulse 93; Resp 18; Temp 98.2; Pulse Ox 100% ; jj7 10:45 BP 154 / 97; Pulse 76; Resp 18; Pulse Ox 100% ; Pain 9/10; nj1 11:36 Pain 8/10; nj1 11:45 BP 168 / 103; Pulse 79; Resp 18; Pulse Ox 100% ; Pain 8/10; nj1 10:45 Pain Scale: Adult nj1 11:36 Pain Scale: Adult nj1 11:45 Pain Scale: Adult nj1 MDM: 08:13 Patient medically screened. rn 11:08 Differential diagnosis: bowel obstruction, diverticulitis, gastritis, non-specific abd rn pain, pancreatitis, Pyelonephritis, Ureterolithiasis, urinary tract infection. Data reviewed: vital signs, nurses notes, lab test result(s), radiologic studies, CT scan, and as a result, I will discharge patient. Counseling: I had a detailed discussion with the patient and/or guardian regarding the historical points, exam findings, and any diagnostic results supporting the discharge/admit diagnosis, lab results, radiology results, the need for outpatient follow up, to return to the emergency department if symptoms worsen or persist or if there are any questions or concerns that arise at home. Response to treatment: the patient's symptoms have markedly improved after treatment, and as a result, I will discharge patient. Special discussion: Based on the patient's Hx, exam, and Dx evaluation, there is no indication for emergent surgery or inpatient Tx. It is understood by the patient/guardian that if the Sx's persist or worsen they need to return immediately for re-evaluation. I discussed with the patient/guardian in detail that at this point there is no indication for admission to the hospital. It is understood, however, that if the symptoms persist or worsen the patient needs to return immediately for re-evaluation. 04/30 08:17 Order name: CBC with Diff rn 04/30 08:17 Order name: CMP; Complete Time: 10:00 rn 04/30 08:17 Order name: Lipase; Complete Time: 10:00 rn 04/30 08:17 Order name: Urinalysis w/ reflexes; Complete Time: 11:02 rn 04/30 11:04 Order name: Urine Culture EDMS 04/30 08:17 Order name: CT Abd/Pelvis - IV Contrast Only; Complete Time: 11:02 rn 04/30 08:17 Order name: IV Saline Lock; Complete Time: 09:38 rn 04/30 08:17 Order name: Labs collected and sent; Complete Time: 09:38 rn Administered Medications: 09:25 Drug: NS 0.9% IV 1000 ml IV at 1 bolus Per protocol; 1000 mL bolus Route: IV; Rate: 1 nj1 bolus; Site: right upper arm; 10:30 Follow up: Response: No adverse reaction; IV Status: Completed infusion; IV Intake: nj1 1000ml 09:26 Drug: Ondansetron IVP 4 mg IVP once; over 2 minutes Route: IVP; Site: right upper arm; nj1 10:25 Follow up: Response: Nausea unchanged nj1 09:28 Drug: morphine IVP or IV 4 mg IVP once over 4 mins Route: IVP; Infused Over: 4 mins; nj1 Site: right upper arm; 10:25 Follow up: Response: No adverse reaction; Pain is unchanged, physician notified nj1 10:45 Drug: morphine IVP or IV 4 mg IVP once over 4 mins Route: IVP; Infused Over: 4 mins; nj1 Site: right upper arm; 11:36 Follow up: Pain 8/10 Adult; Response: No adverse reaction; Pain is decreased nj1 10:49 Drug: Promethazine IVP 12.5 mg IVP once Route: IVP; Site: right upper arm; nj1 11:35 Follow up: Response: No adverse reaction; Nausea is decreased nj1 11:34 Drug: Rocephin IV 1 grams IV at calculated rate once; Given slow IV push per pharmacy nj1 instructions Route: IV; Rate: calculated rate; Site: right upper arm; 12:00 Follow up: Response: No adverse reaction; IV Status: Completed infusion; IV Intake: [id number] 12:00 Drug: morphine IVP or IV 2 mg IVP once over 4 mins Route: IVP; Infused Over: 4 mins; nj1 Site: right upper arm; Disposition Summary: 05/01/23 11:09 Discharge Ordered Notes: Location: Home rn Problem: new rn Symptoms: have improved rn Condition: Stable rn Diagnosis - Acute cystitis without hematuria rn - Abdominal pain, unspecified rn Followup: rn - With: Private Physician - When: As needed - Reason: Recheck today's complaints, Re-evaluation by your physician Discharge Instructions: - Discharge Summary Sheet rn - Abdominal Pain, Adult rn - Urinary Tract Infection, Adult rn Forms: - Medication Reconciliation Form rn - Thank You Letter rn - Antibiotic web development intern - Prescription Opioid Use rn - Patient Portal Instructions rn - Leadership Thank You Letter rn Prescriptions: - cefpodoxime 100 mg Oral Tablet - take 2 tablets ORAL route every 12 hours for 10 days take with food; 40 tablet; rn Refills: 0, Product Selection Permitted - promethazine 25 mg Oral tablet - take 1 tablet ORAL route every 6-8 hours As needed; 15 tablet; Refills: 0, rn Product Selection Permitted Signatures: Dispatcher [employer] Hector Sarkar MD MD rn Johnson, Juwairiyah RN RN jj7 Gifty Lowe RN RN nj1
[2023-05-01 12:36] VITALS: BP 168/103; TEMP 98.2; O2SAT 100
[2023-05-01 13:13] LABS: Blood Morphology Comment NOT SEEN (NOT SEEN); Platelet Estimate ADEQ; White Blood Cell Scan OK (OK)
== END ==
LOC: ER 08:07
DX: N30.00 Acute cystitis without hematuria (principal); Z87.442 Personal history of urinary calculi; Z88.1 Allergy status to other antibiotic agents
CPT/HCPCS: 87088; 85025; 81001; 87086; 36415; 83690; 80053; 74177; Q9967; J2550; J2270; J2405; J7030; J0696; 87077; 87186; 96361; 96365; 96375; 99284

== ENCOUNTER 2023-05-17 09:34 | Day surgery (SDC) | payer BC ==
[2023-05-17] MEDS ORDERED: DIPHENHYDRAMINE 25 MG TAB/CAP ONE (09:48)
[2023-05-17] MEDS ORDERED: NA CHLORIDE 0.9% 250 ML ONE (09:49)
[2023-05-17] MEDS ORDERED: ACETAMINOPHEN 500 MG TAB ONE (09:49)
[2023-05-17] MEDS ORDERED: LIDOCAINE 1% MPF 5 ML VIAL ONE (09:52)
[2023-05-17] MEDS ORDERED: PROMETHAZINE INJ 25 MG/ML AMP ONE (10:21)
[2023-05-17] MEDS ORDERED: INFLIXIMAB-ABDA 700 MG in NA CHLORIDE 0.9% 250 ML IV ONE (10:30)
[2023-05-17 11:30] VITALS: BMI 21.9
[2023-05-17 13:25] VITALS: BP 94/59; TEMP 97.7; O2SAT 99
== END 2023-05-17 12:50 | disposition home or self-care (01) ==
LOC: DS 09:34
PROVIDERS: ATTEND Internal Medicine Gastroenterology
DX: K50.911 Crohn's disease, unspecified, with rectal bleeding (principal)
CPT/HCPCS: 96365; 96366; J2001; J2550; J7050; Q5104

== ENCOUNTER 2023-06-26 09:37 | Day surgery (SDC) | payer BC ==
[2023-06-26] MEDS ORDERED: NA CHLORIDE 0.9% 250 ML ONE (09:38)
[2023-06-26] MEDS: LIDOCAINE 1% MPF 5 ML VIAL ONE (09:51)
[2023-06-26] MEDS: ACETAMINOPHEN 500 MG TAB ONE (09:52)
[2023-06-26] MEDS: DIPHENHYDRAMINE 25 MG TAB/CAP ONE (09:52)
[2023-06-26] MEDS: PROMETHAZINE INJ 25 MG/ML AMP ONE (10:23)
[2023-06-26] MEDS: INFLIXIMAB-ABDA 700 MG in NA CHLORIDE 0.9% 250 ML IV SCH (10:29)
[2023-06-26 19:00] VITALS: BP 96/57; TEMP 98.2; O2SAT 99
== END 2023-06-26 12:45 | disposition home or self-care (01) ==
LOC: DS 09:37
PROVIDERS: ATTEND Internal Medicine Gastroenterology
DX: K50.911 Crohn's disease, unspecified, with rectal bleeding (principal)
CPT/HCPCS: 96365; 96366; J2550; Q5104; J2001; J7050 ×2

== ENCOUNTER 2023-07-26 09:26 | Day surgery (SDC) | payer BC ==
[2023-07-26] MEDS: LIDOCAINE 1% MPF 5 ML VIAL ONE (10:00)
[2023-07-26] MEDS: DIPHENHYDRAMINE 25 MG TAB/CAP ONE (10:01)
[2023-07-26] MEDS: PROMETHAZINE INJ 25 MG/ML AMP ONE (10:01)
[2023-07-26] MEDS: ACETAMINOPHEN 500 MG TAB ONE (10:01)
[2023-07-26] MEDS: NA CHLORIDE 0.9% 250 ML ONE (10:02)
[2023-07-26] MEDS: INFLIXIMAB-ABDA 700 MG in NA CHLORIDE 0.9% 250 ML IV ONE (10:45)
[2023-07-26 11:46] VITALS: BMI 23.5
[2023-07-26 13:36] VITALS: BP 109/65; TEMP 97.8; O2SAT 98
== END 2023-07-26 13:05 | disposition home or self-care (01) ==
LOC: DS 09:26
PROVIDERS: ATTEND Internal Medicine Gastroenterology
DX: K50.911 Crohn's disease, unspecified, with rectal bleeding (principal)
CPT/HCPCS: 96365; 96366; J2550; Q5104; J2001; J7050 ×2

== ENCOUNTER 2023-08-07 11:16 | Inpatient (IN) | payer BC ==
[2023-08-07 11:52] LABS: Absolute Eosinophils 0.1 K/uL (0-0.5); Absolute Monocytes 0.6 K/uL (0.1-1.3); Absolute Neutrophil 6.3 K/uL (1.8-8.0); Basophils % 0.2 % (0-1.3); Eosinophils % 0.6 % (0-4.4); Hematocrit 34.3 % (36.0-45.0); Hemoglobin 11.4 g/dL (12.0-15.0); Lymphocytes % 22.3 % (15.3-44.8); MCH 33.8 pg (27.0-35.0); MCHC 33.4 g/dL (32.0-36.0); MCV 101.2 fL (80-100); Monocytes % 6.2 % (3.3-12.3); Neutrophils % 70.7 % (41.7-73.7); Platelets 209 thou/uL (152-406); RBC Red Blood Cell Count 3.39 M/uL (3.86-4.86); Red Cell Distribution Width 13.2 % (12.1-15.2)
[2023-08-07] MEDS ORDERED: KETOROLAC 30 MG/ML INJ ONE (11:57)
[2023-08-07] MEDS ORDERED: FAMOTIDINE 20 MG/2 ML VIAL IV ONE (11:57)
[2023-08-07] MEDS ORDERED: ONDANSETRON 4 MG/2 ML VIAL ONE (11:57)
[2023-08-07] MEDS ORDERED: NA CHLORIDE 0.9% 1,000 ML ONE ×2 (11:57→17:12)
[2023-08-07 12:15] LABS: Albumin 3.9 g/dL (3.4-5.0); Albumin/Globulin Ratio 0.9 (1.1-1.8); Anion Gap 6.8 mEq/L (5.0-15.0); Bilirubin Total 0.4 mg/dL (0.2-1.0); Globulin 4.2 g/dL (2.3-3.5); Potassium 3.8 mEq/L (3.5-5.1); Protein, Total 8.1 g/dL (6.4-8.2)
[2023-08-07] MEDS ORDERED: MORPHINE 4 MG/ML SYR ONE ×2 (12:48→13:14)
[2023-08-07 12:50] LABS: Specific Gravity > 1.030 (1.005-1.030); Transitional Epithelial <5 /HPF (None Seen); Urine Bacteria >50 /HPF (<20); Urine Bilirubin NEGATIVE (Negative); Urine Blood Trace (Negative); Urine Clarity Extremely Turbid (Clear); Urine Color Yellow (Yellow); Urine Culture Reflex Order REFLEXED; Urine Glucose NEGATIVE (Negative); Urine Ketones NEGATIVE (Negative); Urine Microscopic Reflex YN ORDER UMIC; Urine Mucus Slight /HPF (None Seen); Urine Nitrite 2+ (Negative); Urine Protein 2+ (Negative); Urine RBC <5 /HPF (None Seen); Urine Urobilinogen Normal (Normal); Urine WBC 20-50 /HPF (<5)
--- NOTE | 2023-08-07 13:02 | RAD REPORT ---
EXAM DESCRIPTION: CT - Abdomen Pelvis Wo Contrast - 08/07/2023 12:05 pm CLINICAL HISTORY: ABD PAIN COMPARISON: Abdomen Pelvis W Contrast dated 05/01/2023; Abdomen Pelvis W Contrast dated 09/23/2022 ; Abdomen Pelvis W Contrast dated 05/24/2022; Abdomen Pelvis W Contrast dated 09/30/2021 TECHNIQUE: Thin cut axial CT imaging of the abdomen and pelvis was performed without IV contrast. Mu ltiplanar reformats were generated and reviewed. All CT scans are performed using dose optimization technique as appropriate and may include automated exposure control or mA/KV adjustment according to patient size. FINDINGS: No suspicious findings in the lung bases. The liver, spleen, adrenal glands, and pancreas show no suspicious findings. Gallbladder was surgical ly removed. Symmetric renal contour, without suspicious parenchymal findings within limits of noncontrast techniq ue. No hydronephrosis. Multiple small left renal calculi, not exceeding 3 mm. No dilated bowel loops or bowel wall thickening. No free air, free fluid or inflammatory stranding. N o hernia, mass or bulky lymphadenopathy. The urinary bladder shows some nondependent gas locules, cor relate with history of recent catheterization. No wall thickening or focal wall abnormality. No suspicious bony findings. IMPRESSION: Subtle tear noted within the urinary bladder, please correlate with history of recent ca theterization. No other acute intra-abdominal process.
[2023-08-07] MEDS ORDERED: PROMETHAZINE INJ 25 MG/ML AMP ONE (13:25)
--- NOTE | 2023-08-07 14:45 | RAD REPORT ---
EXAM DESCRIPTION: US - Liver Only - 08/07/2023 2:02 pm CLINICAL HISTORY: Abdominal pain COMPARISON: 2022 FINDINGS: Cholecystectomy Common bile duct 1.1 centimeter Liver has a normal echotexture. Lesion not seen. Hepatopetal flow Spleen 9 centimeters with a normal echotexture IMPRESSION: Prominence of the common bile duct without significant change from 2022 may be physiolog ic in this patient status post cholecystectomy. A stricture and other pathologies can also result in this appearance and should be correlated clinically and with appropriate lab values
--- NOTE | 2023-08-07 15:35 | EDPHYS ---
Physician Documentation [facility] Name: Mckenna Avila Age: 48 yrs Sex: Female : 1975 Arrival Date: 08/07/2023 Time: 11:16 Bed 19 Private MD: ED Physician Willie Jay HPI: 08/06 16:55 This 48 yrs old Female presents to ER via Ambulatory with complaints of ms3 Nausea/Vomiting/Diarrhea. 16:55 48-year-old female with past medical history of Crohn's, DVT, kidney stones, rheumatoid ms3 arthritis presents to the emergency department for bilateral flank pain right greater than left and vomiting that began overnight associated with diarrhea. Patient states her discomfort is an 8/10. Patient denies any alleviating or inciting factors.. 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 - Infectious Disease History:: Denies. - Social history:: Smoking status: Patient denies any tobacco usage or history of. ROS: 16:55 Constitutional: Negative for fever, and chills. Neck: Negative for injury, pain, and ms3 swelling, Cardiovascular: Negative for chest pain, and palpitations. Respiratory: Negative for shortness of breath, cough, wheezing, and pleuritic chest pain, MS/Extremity: Negative for injury and deformity, Skin: Negative for injury, rash, and discoloration, 16:55 Abdomen/GI: Positive for abdominal pain, nausea, vomiting, and diarrhea, Exam: 16:55 Constitutional: This is a well developed, well nourished patient who is awake, alert, ms3 and in no acute distress. Head/Face: Normocephalic, atraumatic. Chest/axilla: Normal chest wall appearance and motion. Nontender with no deformity. Cardiovascular: Regular rate and rhythm with a normal S1 and S2. No gallops, murmurs, or rubs. Normal PMI, no JVD. No pulse deficits. Respiratory: Lungs have equal breath sounds bilaterally, clear to auscultation and percussion. No rales, rhonchi or wheezes noted. No increased work of breathing, no retractions or nasal flaring. 16:55 Skin: Warm, dry with normal turgor. Normal color with no rashes, no lesions, and no evidence of cellulitis. 16:55 Abdomen/GI: Inspection: abdomen appears normal, Bowel sounds: normal, in all quadrants, Palpation: moderate abdominal tenderness, in all quadrants, Vital Signs: 11:23 BP 109 / 83; Pulse 92; Resp 18; Temp 98.1; Pulse Ox 96% on R/A; Weight 68.04 kg; Height mb9 5 ft. 4 in. ; Pain 8/10; 12:15 BP 104 / 78; Pulse 68; Resp 15; Pulse Ox 100% on R/A; me1 13:00 BP 138 / 97; Pulse 68; Resp 14; Pulse Ox 100% on R/A; me1 14:00 BP 143 / 98; Pulse 75; Resp 16; Pulse Ox 100% on R/A; me1 15:00 BP 119 / 98; Pulse 62; Resp 14; Pulse Ox 100% on R/A; me1 16:00 BP 103 / 83; Pulse 55; Resp 16; Pulse Ox 100% on R/A; me1 16:15 Pain 5/10; me1 17:00 BP 140 / 86; Pulse 63; Resp 15; Pulse Ox 100% on R/A; me1 18:00 BP 95 / 60; Pulse 54; Resp 14; Pulse Ox 95% on R/A; me1 11:23 Body Mass Index 25.75 (68.04 kg, 162.56 cm) mb9 11:23 Pain Scale: Adult mb9 16:15 Pain Scale: Adult me1 MDM: 11:44 Patient medically screened. ms3 16:55 Differential diagnosis: Nonspecific abd pain, viral gastroenteritis, Pancreatitis. Data ms3 reviewed: vital signs, nurses notes, lab test result(s), radiologic studies, and as a result, I will discharge patient. I considered the following discharge prescriptions or medication management in the emergency department Medications were administered in the Emergency Department. See MAR. Counseling: I had a detailed discussion with the patient and/or guardian regarding the historical points, exam findings, and any diagnostic results supporting the discharge/admit diagnosis, lab results, radiology results, the need for further work-up and treatment in the hospital. Special discussion:. ED course: Discussed case with Senait Rodriguez NP, and she accepts patient on behalf of Dr Castro. Discussed admission with patient and she understands/ agrees with plan.. 08/06 11:29 Order name: CBC with Diff; Complete Time: 12:45 ms3 08/06 11:29 Order name: CMP; Complete Time: 12:45 ms3 08/06 11:29 Order name: Lipase; Complete Time: 12:45 ms3 08/06 12:15 Order name: Urinalysis w/ reflexes; Complete Time: 13:08 me1 08/06 12:55 Order name: Urine Culture [facility] 08/06 16:07 Order name: Urinalysis w/ reflexes [facility] 08/06 16:07 Order name: Basic Metabolic Panel [facility] 08/06 16:07 Order name: Basic Metabolic Panel [facility] 08/06 16:07 Order name: Basic Metabolic Panel [facility] 08/06 16:07 Order name: Basic Metabolic Panel [facility] 08/06 16:07 Order name: CBC with Automated Diff [facility] 08/06 16:07 Order name: CBC with Automated Diff [facility] 08/06 16:07 Order name: CBC with Automated Diff [facility] 08/06 16:07 Order name: CBC with Automated Diff [facility] 08/06 16:07 Order name: Magnesium [facility] 08/06 16:07 Order name: Magnesium [facility] 08/06 16:07 Order name: Magnesium [facility] 08/06 16:07 Order name: Magnesium [facility] 08/06 11:29 Order name: CT Abd/Pelvis - Without Contrast; Complete Time: 13:18 ms3 08/06 13:19 Order name: US Liver Only; Complete Time: 14:58 ms3 08/06 15:35 Order name: Cholangiogram [facility] 08/06 11:29 Order name: IV Saline Lock; Complete Time: 11:46 ms3 08/06 11:29 Order name: Labs collected and sent; Complete Time: 11:46 ms3 Administered Medications: 12:13 Drug: NS 0.9% IV 1000 ml IV at 1 bolus Per protocol; 1000 mL bolus Route: IV; Rate: 1 me1 bolus; Site: left wrist; 18:02 Follow up: Response: No adverse reaction; IV Status: Completed infusion; IV Intake: me1 1000ml 12:13 Drug: Famotidine IVP 20 mg IVP once; dilute with 10 mL 0.9% NaCl; give over 2 minutes me1 Route: IVP; Site: left wrist; 12:52 Follow up: Response: No adverse reaction me1 12:13 Drug: TORadol - Ketorolac IVP 15 mg IVP once Route: IVP; Site: left wrist; me1 12:52 Follow up: Response: No adverse reaction; Pain is unchanged, physician notified me1 12:14 Drug: Ondansetron IVP 4 mg IVP once; over 2 minutes Route: IVP; Site: left wrist; me1 12:52 Follow up: Response: No adverse reaction; Nausea unchanged me1 12:51 Drug: morphine IVP or IV 4 mg IVP once over 4 mins Route: IVP; Infused Over: 4 mins; me1 Site: left wrist; 13:32 Follow up: Response: No adverse reaction; Pain is decreased me1 13:17 Drug: morphine IVP or IV 4 mg IVP once over 4 mins Route: IVP; Infused Over: 4 mins; me1 Site: left wrist; 13:33 Follow up: Response: No adverse reaction; Pain is decreased me1 13:58 Drug: Promethazine IM 25 mg IM once Route: IM; Site: left gluteus; me1 14:14 Follow up: Response: No adverse reaction; Nausea is decreased me1 15:50 Drug: Ketamine IVP 0.2 mg/kg IVP once; Mix in 50 mL NS IV over 10 minutes. Maximum Dose me1 10 mg Route: IVP; Site: left wrist; 16:15 Follow up: Pain 5/10 Adult; Response: No adverse reaction; Pain is decreased me1 Disposition Summary: 08/07/23 15:34 Hospitalization Ordered Notes: Hospitalization Status: Inpatient Admission ms3 Provider: Aliyah Castro ms3 Location: Telemetry/MedSurg (Inpatient) ms3 Condition: Stable ms3 Problem: new ms3 Symptoms: are unchanged ms3 Bed/Room Type: Standard ms3 Room Assignment: 210(08/07/23 17:14) bd Diagnosis - Abdominal pain, Generalized ms3 - Pancreatitis ms3 - Transaminitis ms3 Forms: - Medication Reconciliation Form ms3 - SBAR form ms3 - Leadership Thank You Letter ms3 Critical care time excluding procedures: 17:00 Critical care time: Bedside Care: 30 minutes, Consultation: 5 minutes. Total time: 35 ms3 minutes Signatures: Dispatcher [employer] EDMS Tere Shannon bd Jay, Willie, DO DO ms3 Nikki Stern, RN RN mb9 Beatriz Ray RN RN me1 Corrections: (The following items were deleted from the chart) 11:30 11:30 Abdomen Pelvis Wo Con+CT.RAD.BRZ ordered. EDMS EDMS 13:19 13:19 Liver Only+US.RAD.BRZ ordered. EDMS EDMS 17:14 15:34 ms3 bd
--- NOTE | 2023-08-07 15:35 | ER ---
Nurse's Notes [facility] Name: Mckenna Avila Age: 48 yrs Sex: Female : 1975 Arrival Date: 08/07/2023 Time: 11:16 Bed 19 Private MD: Diagnosis: Abdominal pain, Generalized;Pancreatitis;Transaminitis Presentation: 08/06 11:23 Chief complaint: Patient states: "Yesterday I started having bilateral back pain near mb9 my kidneys. I started having N/V/D overnight and a bad headache.". Coronavirus screen: Vaccine status: Patient reports being unvaccinated. Ebola Screen: No symptoms or risks identified at this time. Initial Sepsis Screen: Does the patient meet any 2 criteria? No. Patient's initial sepsis screen is negative. Does the patient have a suspected source of infection? No. Patient's initial sepsis screen is negative. Risk Assessment: Do you want to hurt yourself or someone else? Patient reports no desire to harm self or others. Onset of symptoms was August 07, 2023. 11:23 Method Of Arrival: Ambulatory mb9 11:23 Acuity: KEIKO 3 mb9 Triage Assessment: 11:24 General: Appears uncomfortable, Behavior is calm, cooperative. Pain: Complains of pain mb9 in abdomen. Pain: Complains of pain in back. EENT: No signs and/or symptoms were reported regarding the EENT system. Neuro: Haro Agitation-Sedation Scale (RASS): 0 - Alert and Calm Level of Consciousness is awake, alert, obeys commands, Oriented to person, place, time, situation, Appropriate for age. Cardiovascular: Patient's skin is warm and dry. Respiratory: Airway is patent Respiratory effort is even, unlabored, Respiratory pattern is regular, symmetrical. GI: Abdomen is flat, non-distended, Bowel sounds present X 4 quads. Reports diarrhea, nausea, vomiting. : No signs and/or symptoms were reported regarding the genitourinary system. Derm: Skin is pink, warm \\T\\ dry. Musculoskeletal: Range of motion: intact in all extremities. 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 - Infectious Disease History:: Denies. - Social history:: Smoking status: Patient denies any tobacco usage or history of. Screenin:05 [place] ED Fall Risk Assessment (Adult) History of falling in the last 3 months, me1 including since admission No falls in past 3 months (0 pts) Confusion or Disorientation No (0 pts) Intoxicated or Sedated No (0 pts) Impaired Gait No (0 pts) Mobility Assist Device Used No (0 pt) Altered Elimination No (0 pt) Score/Fall Risk Level 0 - 2 = Low Risk Oriented to surroundings, Provided non-skid footwear, Hourly rounding (assess needs \\T\\ fall precautionary measures) done. Abuse screen: Denies threats or abuse. Nutritional screening: No deficits noted. Tuberculosis screening: No symptoms or risk factors identified. Assessment: 12:05 General: Appears uncomfortable, ill, well groomed, well developed, well nourished, me1 Behavior is calm, cooperative, appropriate for age. Pain: Complains of pain in abdomen Pain radiates to back Pain currently is 9 out of 10 on a pain scale. Quality of pain is described as sharp, stabbing, Pain began 1 day ago. Is continuous. Neuro: Level of Consciousness is awake, alert, obeys commands, Oriented to person, place, time, situation, Appropriate for age. Cardiovascular: Capillary refill < 3 seconds Patient's skin is warm and dry. Respiratory: Airway is patent Respiratory effort is even, unlabored, Respiratory pattern is regular, symmetrical. GI: Reports lower abdominal pain, nausea, vomiting, since yesterday. 12:05 GI: Abdomen is round non-distended. : Reports pain in bilateral flank(s), since me1 yesterday. EENT: No signs and/or symptoms were reported regarding the EENT system. Derm: Skin is intact, is healthy with good turgor, Skin is pink, warm \\T\\ dry. Musculoskeletal: No signs and/or symptoms reported regarding the musculoskeletal system. Vital Signs: 11:23 BP 109 / 83; Pulse 92; Resp 18; Temp 98.1; Pulse Ox 96% on R/A; Weight 68.04 kg; Height mb9 5 ft. 4 in. ; Pain 8/10; 12:15 BP 104 / 78; Pulse 68; Resp 15; Pulse Ox 100% on R/A; me1 13:00 BP 138 / 97; Pulse 68; Resp 14; Pulse Ox 100% on R/A; me1 14:00 BP 143 / 98; Pulse 75; Resp 16; Pulse Ox 100% on R/A; me1 15:00 BP 119 / 98; Pulse 62; Resp 14; Pulse Ox 100% on R/A; me1 16:00 BP 103 / 83; Pulse 55; Resp 16; Pulse Ox 100% on R/A; me1 16:15 Pain 5/10; me1 17:00 BP 140 / 86; Pulse 63; Resp 15; Pulse Ox 100% on R/A; me1 18:00 BP 95 / 60; Pulse 54; Resp 14; Pulse Ox 95% on R/A; me1 11:23 Body Mass Index 25.75 (68.04 kg, 162.56 cm) mb9 11:23 Pain Scale: Adult mb9 16:15 Pain Scale: Adult me1 ED Course: 11:18 Patient arrived in ED. rg4 11:20 Willie Jay DO is Attending Physician. ms3 11:24 Triage completed. mb9 11:24 Arm band placed on. mb9 11:30 Missed attempt(s): 24 gauge in right forearm. bc6 11:46 CBC with Diff Sent. bc6 11:46 CMP Sent. bc6 11:46 Lipase Sent. bc6 11:46 Initial lab(s) drawn, by ED staff. Inserted saline lock: 24 gauge in left wrist, using bc6 aseptic technique. Blood collected. 11:48 Patient placed in an exam room, on a stretcher. ll1 11:55 CT Abd/Pelvis - Without Contrast In Process Unspecified. EDMS 12:05 Beatriz Ray, RN is Primary Nurse. me1 12:05 Patient has correct armband on for positive identification. Bed in low position. Call me1 light in reach. Side rails up X2. Provided Education on: POC. Verbalized understanding. . Client placed on continuous cardiac and pulse oximetry monitoring. NIBP monitoring applied. Pulse ox on. NIBP on. 12:05 No provider procedures requiring assistance completed. me1 12:27 Urinalysis w/ reflexes Sent. me1 12:27 Urine collected: clean catch specimen, cloudy. me1 14:04 US Liver Only In Process Unspecified. EDMS 15:33 Aliyah Castro MD is Hospitalizing Provider. ms3 18:15 Patient admitted, IV remains in place. me1 Administered Medications: 12:13 Drug: NS 0.9% IV 1000 ml IV at 1 bolus Per protocol; 1000 mL bolus Route: IV; Rate: 1 me1 bolus; Site: left wrist; 18:02 Follow up: Response: No adverse reaction; IV Status: Completed infusion; IV Intake: me1 1000ml 12:13 Drug: Famotidine IVP 20 mg IVP once; dilute with 10 mL 0.9% NaCl; give over 2 minutes me1 Route: IVP; Site: left wrist; 12:52 Follow up: Response: No adverse reaction me1 12:13 Drug: TORadol - Ketorolac IVP 15 mg IVP once Route: IVP; Site: left wrist; me1 12:52 Follow up: Response: No adverse reaction; Pain is unchanged, physician notified me1 12:14 Drug: Ondansetron IVP 4 mg IVP once; over 2 minutes Route: IVP; Site: left wrist; me1 12:52 Follow up: Response: No adverse reaction; Nausea unchanged me1 12:51 Drug: morphine IVP or IV 4 mg IVP once over 4 mins Route: IVP; Infused Over: 4 mins; me1 Site: left wrist; 13:32 Follow up: Response: No adverse reaction; Pain is decreased me1 13:17 Drug: morphine IVP or IV 4 mg IVP once over 4 mins Route: IVP; Infused Over: 4 mins; me1 Site: left wrist; 13:33 Follow up: Response: No adverse reaction; Pain is decreased me1 13:58 Drug: Promethazine IM 25 mg IM once Route: IM; Site: left gluteus; me1 14:14 Follow up: Response: No adverse reaction; Nausea is decreased me1 15:50 Drug: Ketamine IVP 0.2 mg/kg IVP once; Mix in 50 mL NS IV over 10 minutes. Maximum Dose me1 10 mg Route: IVP; Site: left wrist; 16:15 Follow up: Pain 5/10 Adult; Response: No adverse reaction; Pain is decreased me1 Medication: 13:29 VIS not applicable for this client. me1 Intake: 18:02 IV: 1000ml; Total: 1000ml. me1 Outcome: 15:34 Decision to Hospitalize by Provider. ms3 18:11 Admitted to Med/surg accompanied by tech, via wheelchair, room 210, with chart, Report me1 called to faxed report, receipt confirmed by Shi. 18:11 Condition: stable 18:11 Instructed on the need for admit, 18:46 Patient left the ED. ks1 Signatures: Dispatcher [employer] EDMS Jo Lau rg4 Asha Sellers RN RN ll1 Willie Jay DO DO ms3 Jarred, Nikki Michel, RN RN mb9 Zayda Ferrari 6 Beatriz Ray RN RN ks1 Corrections: (The following items were deleted from the chart) 11:24 11:23 BP 109 / 83; Pulse 92bpm; Resp 18bpm; Pulse Ox 96% RA; Temp 98.1F; 9 9 13:19 11:23 Chief complaint: Patient states: "Yesterday I started having bilateral back pain me1 near my kidneys. I started having N/V/D overnight and a bad headache." 9 13:30 12:05 : No signs and/or symptoms were reported regarding the genitourinary system. [facility] [place] 13:29 : ks1 [facility] : 13:29 : Reports pain in bilateral flank(s), since yesterday [place] [id number] :31 13:29 GI: Abdomen is round non-distended, ks1 [facility] :31 13:29 EENT: No signs and/or symptoms were reported regarding the EENT system. [place] [id number] :31 13:29 Derm: Skin is intact, is healthy with good turgor, Skin is pink, warm \\T\\ dry. ks1 ks1 :31 13:29 Musculoskeletal: No signs and/or symptoms reported regarding the musculoskeletal ks1 system. ks1 13:32 13:29 [place] ED Fall Risk Assessment (Adult) History of falling in the last 3 months, me1 including since admission No falls in past 3 months (0 pts) Confusion or Disorientation No (0 pts) Intoxicated or Sedated No (0 pts) Impaired Gait No (0 pts) Mobility Assist Device Used No (0 pt) Altered Elimination No (0 pt) Score/Fall Risk Level 0 - 2 = Low Risk Oriented to surroundings, Provided non-skid footwear, Hourly rounding (assess needs \\T\\ fall precautionary measures) done, [facility] 13:32 13:29 Abuse screen: Denies threats or abuse. [place] [id number] 13:32 13:29 Nutritional screening: No deficits noted. [place] [id number] 13:32 13:29 Tuberculosis screening: No symptoms or risk factors identified. [place] [id number] 16:17 16:00 BP 183 / 61; Pulse 65bpm; Resp 15bpm; Pulse Ox 97% RA; [facility]
[2023-08-07] MEDS ORDERED: KETAMINE HCL IN 0.9 % NACL 50 MG/5 ML SYRINGE IV ONE (15:43)
[2023-08-07] MEDS ORDERED: NA CHLORIDE 0.9% 50 ML ONE (15:43)
--- NOTE | 2023-08-07 16:02 | P.HP ---
Certification for Inpatient Patient admitted to: Inpatient With expected LOS: <2 Midnights Practitioner: I am a practitioner with admitting privileges, knowledge of patient current condition, hospital course, and medical plan of care. Services: Services provided to patient in accordance with Admission requirements found in Title 42 Section 412.3 of the Code of Federal Regulations Patient History Date of Service: 08/07/23 Reason for admission: Pancreatitis History of Present Illness: 48-year-old female with a past medical history chrons disease; DVT; GCA; Kidney stones; Rheumatoid Arthritis; presents to the emergency room with abdominal pain.She reports abominal pain started last night, reports associated nausea, intermittent vomiting, generalized abdominal pain, flank pain. She reports remote history of pancreatitis. No reported alcohol use, chest pain, shortness of breath, Laboratory evaluation lipase 561, UA positive for UTI leukoesterase greater than 500, acute kidney injury BUN 22 creatinine 1.20 GFR 56, microcytic anemia 11.4 34.3, abdominal CT IMPRESSION: Subtle tear noted within the urinary bladder, please correlate with history of recent. catheterization.No other acute intra-abdominal process. IMPRESSION: Prominence of the common bile duct without significant change from 2022 may be physiologic in this patient status post cholecystectomy. A stricture and other pathologies can also result in this appearance and should be correlated clinically and with appropriate lab values. Plan to admit for acute pancreatitis, abdominal pain, transaminitis, acute cystitis Allergies cefdinir [From Omnicef] Allergy (Verified 06/26/23 10:49) bloody diarrhea ciprofloxacin [From Cipro] Allergy (Verified 06/26/23 10:49) red rash/hives and hot at iv site Home Medications: Dicyclomine HCl 20 mg PO TID 07/08/20 Gabapentin 800 mg PO TID 07/08/20 LORazepam [Ativan*] 1 mg PO TID 07/08/20 Tizanidine HCl [Zanaflex] 4 mg PO TID 12/30/20 methocarbamoL [Methocarbamol] 750 mg PO BID 12/30/20 Hydrocodone/Acetaminophen [Hydrocodone-Acetamin 10-325 mg] 1 tab PO TID 04/26/21 Rivaroxaban [Xarelto] 20 mg PO DAILY 04/26/21 azaTHIOprine [Imuran*] 150 mg PO DAILY 10/14/21 inFLIXimab [Infliximab] 700 mg IV SEECOM 10/14/21 Cyclosporine [Restasis] 1 drop EACH EYE BID 04/20/22 Rabeprazole Sodium 20 mg PO DAILY 04/20/22 Buspirone HCl [Buspar*] 15 mg PO TID 01/24/23 Codeine/APAP [Tylenol #3*] 1 tab PO BID 01/24/23 Diphenox/Atropine [Lomotil*] 1 tab PO PRN PRN 01/24/23 Ibuprofen 800 mg PO TID 01/24/23 Ondansetron [Zofran (Odt)*] 8 mg PO TID 01/24/23 Promethazine Tab [Phenergan*] 25 mg PO QID 01/24/23 Losartan Potassium [Cozaar*] 25 mg PO DAILY #30 tab 01/26/23 Aspirin [Aspirin EC] 81 mg PO DAILY #30 tab 01/29/23 Atorvastatin Calcium [Lipitor] 40 mg PO BEDTIME #30 tab 01/29/23 Ertapenem Na [Invanz] 1 gm IV DAILY #5 vial 01/29/23 Mupirocin Calcium [Bactroban Nasal*] 1 appl DAHIANA BID #1 tube 01/29/23 - Past Medical/Surgical History Diabetic: No -: Crohn's disease -: Kidney Stones -: Cdiff history -: anxiety -: RA -: DVT -: stroke - 2019 -: hysterectomy -: kidney stone removed -: cholecystectomy -: tubal ligation Psychosocial/ Personal History: Lives at home with family - Family History Mother -: Hypertension Father -: Hypertension - Social History Alcohol use: No CD- Drugs: Yes Caffeine use: Yes Review of Systems per HPI Physical Examination - Physical Exam General: Alert, Mild distress HEENT: Atraumatic, Normocephalic Neck: Supple, 2+ carotid pulse no bruit Respiratory: Clear to auscultation bilaterally, Normal air movement Cardiovascular: Normal pulses, Regular rate/rhythm Capillary refill: <2 Seconds Gastrointestinal: Other (generalized abdominal tenderness), Tenderness Musculoskeletal: No clubbing, No swelling Neurological: Normal speech, Normal strength at 5/5 x4 extr - Studies Laboratory Data (last 24 hrs) 08/07/23 08/07/23 11:45 11:45 WBC 8.90 Hgb 11.4 L Hct 34.3 L Plt Count 209 Sodium 136 Potassium 3.8 BUN 22 H Creatinine 1.20 H Glucose 106 Total Bilirubin 0.4 AST 222 H ALT 147 H Alkaline Phosphatase 212 H Lipase 561 H Assessment and Plan - Plan Assessment plan acute pancreatitis abdominal pain IV fluids, n.p.o. except ice chips, as needed analgesic MRCP ordered lipase daily, triglyceride level in a.m. Rheumatoid arthritis, History of vasculitis Not currently on steroids History of DVT Chronic anticoagulation On Xarelto transaminitis Trend liver enzyme Anxiety, She is on Ativan 3 times daily as needed 1 mg acute cystitis Bactrim, IV-allergies to Cipro, cefdinir UA positive for UTI Urine culture sent Full code Diet n.p.o. DVT SCDs, heparin Disposition Home independent prior Discharge Plan: Home - Advance Directives Does patient have a Living Will: No Does patient have a Durable POA for Healthcare: No - Code Status/Comfort Care Code Status: Full Code Critical Care: No Time Spent Managing Pts Care (In Minutes): 55
[2023-08-07] MEDS ORDERED: ONDANSETRON 4 MG/2 ML VIAL IV PRN (16:03)
[2023-08-07] MEDS: NA CHLORIDE 0.9% 1,000 ML IV SCH (17:00)
[2023-08-07] MEDS: HYDROMORPHONE HCL 1 MG/ML INJ IV ONE (17:06)
[2023-08-07] MEDS: LORazepam 2 MG/ML VIAL IV ONE (17:08)
[2023-08-07] MEDS ORDERED: HYDROMORPHONE HCL 1 MG/ML INJ ONE (17:11)
[2023-08-07] MEDS ORDERED: LORazepam 2 MG/ML VIAL ONE (17:11)
[2023-08-07] MEDS: SMZ./TMP. 10 ML in D5W 250 ML IVPB SCH (20:17)
[2023-08-07 20:21] VITALS: BMI 24.3
[2023-08-07] MEDS: LORazepam 2 MG/ML VIAL IV PRN (21:26)
[2023-08-07] MEDS: HYDROMORPHONE HCL 0.5 MG/0.5 ML INJ IV PRN (21:37)
[2023-08-07] MEDS: PROMETHAZINE INJ 25 MG/ML AMP IV PRN (21:37)
[2023-08-07] MEDS ORDERED: DIPHENOX/ATROP SULF 1 TAB PO PRN (23:49)
[2023-08-08 03:38] LABS: Absolute Eosinophils 0.1 K/uL (0-0.5); Absolute Lymphocytes (CBC) 2.3 K/uL (0.7-4.9); Absolute Monocytes 0.5 K/uL (0.1-1.3); Absolute Neutrophil 3.5 K/uL (1.8-8.0); Basophils % 0.1 % (0-1.3); Eosinophils % 1.3 % (0-4.4); Hematocrit 32.1 % (36.0-45.0); Hemoglobin 10.8 g/dL (12.0-15.0); Lymphocytes % 35.5 % (15.3-44.8); MCH 34.5 pg (27.0-35.0); MCHC 33.8 g/dL (32.0-36.0); MCV 102.1 fL (80-100); MPV 8.6 fL (7.6-11.3); Monocytes % 7.6 % (3.3-12.3); Neutrophils % 55.5 % (41.7-73.7); Platelets 193 thou/uL (152-406); RBC Red Blood Cell Count 3.14 M/uL (3.86-4.86); Red Cell Distribution Width 13.2 % (12.1-15.2)
[2023-08-08 03:52] LABS: Anion Gap 8.2 mEq/L (5.0-15.0); Magnesium 1.9 mg/dL (1.6-2.4); Potassium 3.2 mEq/L (3.5-5.1)
--- NOTE | 2023-08-08 07:52 | P.PN ---
Date of Service: 08/08/23 Subjective Reports nausea, plan to advance diet today plan to advance diet Review of Systems per HPI Physical Examination - Vital Signs Reviewed - Physical Exam General: Afebrile, Respiratory: Equal unlabored Cardiovascular: Normal pulses, Regular rate/rhythm Capillary refill: <2 Seconds Gastrointestinal: Other (generalized abdominal tenderness), Tenderness Neurological: Normal speech, Normal strength at 5/5 x4 extr Assessment and Plan - Plan Assessment plan acute pancreatitis improved abdominal pain improved Hypertriglyceridemia IV fluids, n.p.o. except ice chips, as needed analgesic MRCP ordered lipase daily, triglyceride level 218 will start fenofibrate Rheumatoid arthritis, History of vasculitis Not currently on steroids History of DVT Chronic anticoagulation On Xarelto transaminitis Trend liver enzyme Anxiety, Resume home meds acute cystitis Start Merrem, IV-allergies to Cipro, cefdinir UA positive for UTI Urine culture from gram negative rods +4 Full code Diet advanced as tolerated. DVT resume home Xarelto
[2023-08-08] MEDS: PROMETHAZINE 25 MG TABLET PO SCH (09:00)
[2023-08-08] MEDS: ONDANSETRON 4 MG (ODT) TAB PO SCH (09:00)
[2023-08-08] MEDS: ASPIRIN EC 81 MG TAB PO SCH (09:00)
[2023-08-08] MEDS: HYDROCODONE/APAP 10/325 TAB PO SCH (09:00)
[2023-08-08] MEDS: IBUPROFEN 400 MG TAB PO SCH (09:00)
[2023-08-08] MEDS ORDERED: HOME MED 1 EA UNK (Rabeprazole Sodium [Rabeprazole Sodium] 20 MG Tablet.Dr) PO SCH (09:00)
[2023-08-08] MEDS: CODEINE 30MG/APAP 300MG TAB PO SCH (09:00)
[2023-08-08] MEDS: POTASSIUM CL SA 10 MEQ TAB PO ONE (09:00)
[2023-08-08] MEDS ORDERED: LORAZEPAM 1 MG TABLET PO SCH (09:00)
[2023-08-08] MEDS: Cyclosporine [Restasis] Droperette OPTH SCH (09:00)
--- NOTE | 2023-08-08 10:09 | RAD REPORT ---
EXAM DESCRIPTION: MRICholangiogram08/08/2023 8:41 am CLINICAL HISTORY: Abdominal pain COMPARISON: Ultrasound August 07, 2023 TECHNIQUE: Magnetic resonance cholangiogram was performed.3D MIP reconstruction performed. FINDINGS: Cholecystectomy. Common bile duct 13 millimeter. Mild dilatation intrahepatic biliary tree. A filling defect within th e common bile duct is not seen. A stricture not noted. Pancreatic duct is normal caliber IMPRESSION: Prominence of the biliary tree may be physiologic in this patient status post cholecyste ctomy. However, if the liver enzymes are elevated ERCP may be helpful for further evaluation
[2023-08-08] MEDS: Meropenem 1,000 MG in NA CHLORIDE 0.9% 100 ML IV SCH (10:10)
[2023-08-08] MEDS: KCL 20 MEQ/100 mL IVPB 20 MEQ/100 ML BAG IV SCH (10:10)
[2023-08-08] MEDS: GABAPENTIN 400 MG CAP PO SCH (10:13)
[2023-08-08] MEDS: methocarbamoL 750 MG TAB PO SCH (10:14)
[2023-08-08] MEDS: PANTOPRAZOLE 40MG TABLET PO SCH (10:14)
[2023-08-08] MEDS: TIZANIDINE 4 MG TABLET PO SCH (10:15)
[2023-08-08] MEDS: BUSPIRONE HCL 5 MG TABLET PO SCH (10:15)
[2023-08-08] MEDS: DICYCLOMINE HCL 10 MG CAP PO SCH (10:15)
[2023-08-08] MEDS: AZATHIOPRINE 50 MG TABLET PO SCH (10:16)
[2023-08-08] MEDS: FENOFIBRATE 48 MG TAB PO SCH (10:16)
[2023-08-08] MEDS: HYDROMORPHONE HCL 0.5 MG/0.5 ML INJ IV PRN (12:16)
[2023-08-08] MEDS: PROMETHAZINE 25 MG TABLET PO PRN (12:16)
[2023-08-08 14:36] LABS: Albumin 2.9 g/dL (3.4-5.0); Albumin/Globulin Ratio 0.9 (1.1-1.8); Anion Gap 7.1 mEq/L (5.0-15.0); Bilirubin Total 0.4 mg/dL (0.2-1.0); Globulin 3.4 g/dL (2.3-3.5); Potassium 4.1 mEq/L (3.5-5.1); Protein, Total 6.3 g/dL (6.4-8.2)
[2023-08-08] MEDS: RIVAROXABAN 20 MG TABLET PO SCH (16:52)
[2023-08-08] MEDS ORDERED: HEPARIN 5000 UNIT/ML 1 ML VIAL SQ SCH (18:00)
[2023-08-08 22:11] LABS: Specific Gravity 1.011 (1.005-1.030); Sqamous Epithelial <5 /HPF (None Seen); Urine Bacteria None Seen /HPF (<20); Urine Bilirubin NEGATIVE (Negative); Urine Blood Negative (Negative); Urine Clarity Clear (Clear); Urine Color Light-Yellow (Yellow); Urine Culture Reflex Order NOT NEEDED; Urine Glucose NEGATIVE (Negative); Urine Ketones TRACE (Negative); Urine Microscopic Reflex YN ORDER UMIC; Urine Mucus Slight /HPF (None Seen); Urine Nitrite NEGATIVE (Negative); Urine Protein NEGATIVE (Negative); Urine RBC <5 /HPF (None Seen); Urine Urobilinogen Normal (Normal); Urine WBC <5 /HPF (<5); Urine pH 6.5 (5.0-7.0)
[2023-08-09 03:47] LABS: Absolute Eosinophils 0.1 K/uL (0-0.5); Absolute Lymphocytes (CBC) 1.6 K/uL (0.7-4.9); Absolute Monocytes 0.3 K/uL (0.1-1.3); Basophils % 0.2 % (0-1.3); Eosinophils % 2.4 % (0-4.4); Hemoglobin 9.3 g/dL (12.0-15.0); Lymphocytes % 30.9 % (15.3-44.8); MCH 35.1 pg (27.0-35.0); MCHC 34.5 g/dL (32.0-36.0); MCV 101.7 fL (80-100); MPV 8.4 fL (7.6-11.3); Monocytes % 6.8 % (3.3-12.3); Neutrophils % 59.7 % (41.7-73.7); Nucleated Red Blood Cells % 0.1 % (0-0); Platelets 159 thou/uL (152-406); RBC Red Blood Cell Count 2.65 M/uL (3.86-4.86); Red Cell Distribution Width 13.5 % (12.1-15.2)
[2023-08-09 03:53] LABS: ALT/SGPT 171 U/L (13-56); AST/SGOT 104 U/L (15-37); Albumin 2.9 g/dL (3.4-5.0); Albumin/Globulin Ratio 0.9 (1.1-1.8); Alkaline Phosphatase 208 U/L (45-117); Anion Gap 7.8 mEq/L (5.0-15.0); BUN Blood Urea Nitrogen 11 mg/dL (7-18); Bicarbonate 23 mEq/L (21-32); Bilirubin Total 0.4 mg/dL (0.2-1.0); Globulin 3.3 g/dL (2.3-3.5); Glomerular Filtration Rate 92 ml/min (=/>90); Glucose Level 95 mg/dL (74-106); Lipase 14 U/L (13-75); Magnesium 1.8 mg/dL (1.6-2.4); Potassium 3.8 mEq/L (3.5-5.1); Protein, Total 6.2 g/dL (6.4-8.2); Sodium Level 140 mEq/L (136-145)
[2023-08-09 04:05] LABS: Bilirubin Direct < 0.2 mg/dL (0-0.2); Bilirubin Indirect, Calculated 0.2 mg/dL (0.2-0.8)
[2023-08-09] MEDS: MAGNESIUM SULFATE 1 gm IVPB 1 GM/100 ML BAG IV ONE (04:58)
--- NOTE | 2023-08-09 07:44 | P.DS ---
Admission Date: 08/07/23 Discharge Date: 08/11/23 Disposition: ROUTINE DISCHARGE Discharge Condition: GOOD Reason for Admission: Pancreatitis Brief History of Present Illness: 48-year-old female with a past medical history chrons disease; DVT; GCA; Kidney stones; Rheumatoid Arthritis; presents to the emergency room with abdominal pain.She reports abominal pain started last night, reports associated nausea, intermittent vomiting, generalized abdominal pain, flank pain. She reports remote history of pancreatitis. No reported alcohol use, chest pain, shortness of breath, Laboratory evaluation lipase 561, UA positive for UTI leukoesterase greater than 500, acute kidney injury BUN 22 creatinine 1.20 GFR 56, microcytic anemia 11.4 34.3, abdominal CT IMPRESSION: Subtle tear noted within the urinary bladder, please correlate with history of recent. catheterization.No other acute intra-abdominal process. IMPRESSION: Prominence of the common bile duct without significant change from 2022 may be physiologic in this patient status post cholecystectomy. A stricture and other pathologies can also result in this appearance and should be correlated clinically and with appropriate lab values. Plan to admit for acute pancreatitis, abdominal pain, transaminitis, acute cystitis Physical Exam General: Alert, oriented x 3 HEENT: Atraumatic, Normocephalic Neck: Supple, 2+ carotid pulse no bruit Respiratory: Clear to auscultation bilaterally, Normal air movement Cardiovascular: Normal pulses, Regular rate/rhythm Capillary refill: <2 Seconds Gastrointestinal: Other Tenderness Musculoskeletal: No clubbing, No swelling Neurological: Normal speech, Normal strength at 5/5 x4 extr Hospital Course: 48 year old female with complicated past medical history of Rheumatoid arthritis, History of vasculitis presented with abdominal pain, She was noted to have acute pancreatitis., Urinary tract infection infection, she was treated with IV fluids IV antibiotics,, prn analgesics, IV fluids,. Condition improved, she is tolerating diet, Patient tolerating diet, stable for discharge to home with follow-up appointment with primary care physician. Follow-up with GI after discharge Assessment Acute pancreatitis improved with IV fluids Abdominal pain, Transaminitis, improving, UTI, treated with IV antibiotics, Discharge home with hydrocodone, Phenergan, fenofibrate, Zofran, follow-up with Dr. Khalil with GI after discharge Continue home medicines as previously prescribed GOAL: Clear understanding of disease process INSTRUCTIONS: Physician Discharge Instructions: -Follow-up with PCP in 1 to 2 weeks -Please call Dr. Castro at [phone] if any questions regarding hospital stay -Please call nursing station at [phone] if any nursing or medication questions -Return to the emergency room if symptoms worsen Diet: ADA, low sodium Activity: Fall precautions Vital Signs/Physical Exam: Temp Pulse Resp BP Pulse Ox 98.0 F 78 18 161/87 H 97 08/09/23 04:00 08/09/23 04:00 08/09/23 04:53 08/09/23 04:00 08/09/23 04:53 Laboratory Data at Discharge: WBC 5.10 thou/uL (4.3-10.9) 08/09/23 02:39 Hgb 9.3 g/dL (12.0-15.0) L D 08/09/23 02:39 Hct 27.0 % (36.0-45.0) L 08/09/23 02:39 Plt Count 159 thou/uL (152-406) 08/09/23 02:39 Sodium 140 mEq/L (136-145) 08/09/23 02:39 Potassium 3.8 mEq/L (3.5-5.1) 08/09/23 02:39 BUN 11 mg/dL (7-18) 08/09/23 02:39 Creatinine 0.79 mg/dL (0.55-1.02) 08/09/23 02:39 Glucose 95 mg/dL (74-106) 08/09/23 02:39 Magnesium 1.8 mg/dL (1.6-2.4) 08/09/23 02:39 Total Bilirubin 0.4 mg/dL (0.2-1.0) 08/09/23 02:39 AST 104 U/L (15-37) H 08/09/23 02:39 ALT 171 U/L (13-56) H 08/09/23 02:39 Alkaline Phosphatase 208 U/L (45-117) H 08/09/23 02:39 Triglycerides 218 mg/dL (<150) H 08/08/23 02:54 Lipase 14 U/L (13-75) 08/09/23 02:39 Home Medications: Dicyclomine HCl 20 mg PO TID 07/08/20 Gabapentin 800 mg PO TID 07/08/20 LORazepam [Ativan*] 1 mg PO TID 07/08/20 Tizanidine HCl [Zanaflex] 4 mg PO TID 12/30/20 methocarbamoL [Methocarbamol] 750 mg PO BID 12/30/20 Rivaroxaban [Xarelto] 20 mg PO DAILY 04/26/21 azaTHIOprine [Imuran*] 150 mg PO DAILY 10/14/21 inFLIXimab [Infliximab] 700 mg IV SEECOM 10/14/21 Cyclosporine [Restasis] 1 drop EACH EYE BID 04/20/22 Rabeprazole Sodium 20 mg PO DAILY 04/20/22 Buspirone HCl [Buspar*] 15 mg PO TID 01/24/23 Diphenox/Atropine [Lomotil*] 1 tab PO PRN PRN 01/24/23 Ibuprofen 800 mg PO TID 01/24/23 Ondansetron [Zofran (Odt)*] 8 mg PO TID 01/24/23 Aspirin [Aspirin EC] 81 mg PO DAILY #30 tab 01/29/23 Fenofibrate [Tricor*] 48 mg PO DAILY 30 Days #30 tab 08/11/23 Hydrocodone/Acetaminophen [Hydrocodone-Acetamin 10-325 mg] 1 tab PO TID #30 tab 08/11/23 Ondansetron [Zofran (Odt)*] 8 mg PO TID PRN 10 Days #30 tab 08/11/23 Promethazine Tab [Phenergan*] 25 mg PO QID PRN 10 Days #30 tab 08/11/23 New Medications: Hydrocodone/Acetaminophen [Hydrocodone-Acetamin 10-325 mg] 1 tab PO TID #30 tab Promethazine Tab [Phenergan*] 25 mg PO QID PRN 10 Days #30 tab PRN Reason: Nausea / Vomiting Fenofibrate [Tricor*] 48 mg PO DAILY 30 Days #30 tab Ondansetron [Zofran (Odt)*] 8 mg PO TID PRN 10 Days #30 tab PRN Reason: Nausea / Vomiting Physician Discharge Instructions: 48 year old female with past medical history of Rheumatoid arthritis, History of vasculitis presented with abdominal pain, She was noted to have acute pancreatitis. She was treated with IV fluids, prn analgesics. Condition improved, she is tolerating diet, Patient tolerating diet, stable for discharge to home with follow-up appointment with primary care physician. Pancreatitis follow-up with Dr. Pena GI after discharge, lipase improved Transaminitis follow-up with cardiology after discharge improving Refill Phenergan, Zofran, new medication fenofibrate for acute pancreatitis Continue home medicines as previously prescribed GOAL: Clear understanding of disease process INSTRUCTIONS: Physician Discharge Instructions: -Follow-up with PCP in 1 to 2 weeks -Please call Dr. Castro at [phone] if any questions regarding hospital stay -Please call nursing station at [phone] if any nursing or medication questions -Return to the emergency room if symptoms worsen Diet: ADA, low sodium Activity: Fall precautions Diet: Low sodium Activity: Fall precautions Followup: Fercho Adams MD [ASSOCIATE-ACTIVE - CAN ADMIT] - Soledad Fabian [Primary Care Provider] - Time spent managing pt's care (in minutes): 55
[2023-08-09] MEDS: POTASSIUM CL SA 10 MEQ TAB PO ONE (09:37)
--- NOTE | 2023-08-09 18:22 | P.PN ---
Date of Service: 08/09/23 Subjective Abdominal pain improved, reports mild nausea, advancing diet, Review of Systems per HPI Physical Examination - Vital Signs Reviewed - Physical Exam General: Afebrile, oriented x 3 Respiratory clear to auscultation Cardiovascular: Normal pulses, Regular rate/rhythm, no with Capillary refill: <2 Seconds Gastrointestinal: Mild generalized tenderness Neurological: Normal speech, Normal strength at 5/5 x4 extr Assessment and Plan - Plan Assessment plan acute pancreatitis improved abdominal pain improved Hypertriglyceridemia IV fluids, as needed analgesic plan to advance diet MRCP ordered lipase daily, triglyceride level 218 will start fenofibrate Rheumatoid arthritis, History of vasculitis Not currently on steroids History of DVT Chronic anticoagulation On Xarelto transaminitis Trend liver enzyme Anxiety, Resume home meds acute cystitis Start Merrem, IV-allergies to Cipro, cefdinir UA positive for UTI Urine culture from gram negative rods +4 Full code Diet advanced as tolerated. DVT resume home Xarelto
[2023-08-10 04:30] LABS: Absolute Eosinophils 0.2 K/uL (0-0.5); Absolute Monocytes 0.3 K/uL (0.1-1.3); Absolute Neutrophil 2.7 K/uL (1.8-8.0); Basophils % 0.1 % (0-1.3); Eosinophils % 3.2 % (0-4.4); Hematocrit 27.7 % (36.0-45.0); Hemoglobin 9.5 g/dL (12.0-15.0); Lymphocytes % 38.7 % (15.3-44.8); MCH 34.8 pg (27.0-35.0); MCHC 34.2 g/dL (32.0-36.0); MCV 101.7 fL (80-100); MPV 8.7 fL (7.6-11.3); Monocytes % 6.1 % (3.3-12.3); Neutrophils % 51.9 % (41.7-73.7); Nucleated Red Blood Cells % 0.1 % (0-0); Platelets 180 thou/uL (152-406); RBC Red Blood Cell Count 2.73 M/uL (3.86-4.86); Red Cell Distribution Width 13.2 % (12.1-15.2)
[2023-08-10 04:35] LABS: Anion Gap 9.6 mEq/L (5.0-15.0); Magnesium 1.8 mg/dL (1.6-2.4); Potassium 3.6 mEq/L (3.5-5.1)
[2023-08-10] MEDS: POTASSIUM CL SA 10 MEQ TAB PO ONE (06:14)
[2023-08-10] MEDS: MAGNESIUM SULFATE 1 gm IVPB 1 GM/100 ML BAG IV ONE (06:14)
[2023-08-10 10:33] LABS: ALT/SGPT 129 U/L (13-56); AST/SGOT 50 U/L (15-37); Albumin 3.1 g/dL (3.4-5.0); Albumin/Globulin Ratio 0.9 (1.1-1.8); Alkaline Phosphatase 200 U/L (45-117); Bilirubin Total 0.3 mg/dL (0.2-1.0); Globulin 3.5 g/dL (2.3-3.5); Protein, Total 6.6 g/dL (6.4-8.2)
[2023-08-10 10:39] LABS: Bilirubin Direct < 0.2 mg/dL (0-0.2); Bilirubin Indirect, Calculated 0.1 mg/dL (0.2-0.8)
--- NOTE | 2023-08-10 13:53 | RAD REPORT ---
EXAM DESCRIPTION: CT - Abdomen Pelvis W Contrast - 08/10/2023 11:29 am CLINICAL HISTORY: abd pain COMPARISON: Abdomen Pelvis W Contrast dated 05/01/2023; Abdomen Pelvis W Contrast dated 09/23/2022 ; Abdomen Pelvis W Contrast dated 05/24/2022; Abdomen Pelvis W Contrast dated 09/30/2021; Abdomen Pelvis Wo Contrast dated 08/07/2023 TECHNIQUE: Thin cut axial CT imaging of the abdomen and pelvis was performed following intravenous a dministration of 100 mL Isovue 300. Multiplanar reformats were generated and reviewed. All CT scans are performed using dose optimization technique as appropriate and may include automated exposure control or mA/KV adjustment according to patient size. FINDINGS: No suspicious findings in the lung bases. The liver, spleen, and pancreas show no suspicious findings. Gallbladder was surgically removed. Prom inent caliber of the common bile duct and mild central intrahepatic biliary ductal dilation, stable, and may relate to reservoir effect. Symmetric renal function is seen with no hydronephrosis or suspicious renal mass. No dilated bowel loops or bowel wall thickening. Fluid opacification throughout the colon. No free ai r, free fluid or inflammatory stranding. No hernia, mass or bulky lymphadenopathy. The urinary bladde r shows some anti dependent gas within its lumen, noted on multiple prior exam. No suspicious bony findings. IMPRESSION: Fluid opacification throughout the colon, nonspecific, but may relate to diarrheal state . No other acute intra-abdominal process. Other stable findings as above.
--- NOTE | 2023-08-10 15:10 | P.PN ---
Date of Service: 08/10/23 Subjective Reports abdominal pain, nausea, tolerating diet, Review of Systems per HPI Physical Examination - Vital Signs Reviewed - Physical Exam General: Afebrile, Respiratory clear to auscultation Cardiovascular: Normal pulses, Regular rate/rhythm, no with Capillary refill: <2 Seconds Gastrointestinal: Mild generalized tenderness Neurological: Normal speech, Normal strength at 5/5 x4 extr Musculoskeletal generalized weakness Assessment and Plan - Plan Assessment plan acute pancreatitis improved intractable abdominal pain Hypertriglyceridemia IV fluids, as needed analgesic plan to advance diet MRCP IMPRESSION: Prominence of the biliary tree may be physiologic in this patient status post cholecystectomy. However, if the liver enzymes are elevated ERCP may be helpful for further evaluation lipase daily, triglyceride level 218 will start fenofibrate 08/[address] scan IMPRESSION: Fluid opacification throughout the colon, nonspecific, but may relate to diarrheal state.No other acute intra-abdominal process. Other stable findings as above. Rheumatoid arthritis, History of vasculitis Not currently on steroids History of DVT Chronic anticoagulation On Xarelto transaminitis Trend liver enzyme Anxiety, Resume home meds acute cystitis Start Merrem, IV-allergies to Cipro, cefdinir UA positive for UTI Urine culture from gram negative rods +4 Full code Diet advanced as tolerated. DVT resume home Xarelto
[2023-08-11 05:52] LABS: Anion Gap 7.9 mEq/L (5.0-15.0); Potassium 3.9 mEq/L (3.5-5.1)
[2023-08-11 08:43] VITALS: BP 140/84; TEMP 97.4
[2023-08-11 10:46] VITALS: O2SAT 98
== END 2023-08-11 11:17 | disposition home or self-care (01) | DRG 439 ==
LOC: ER 11:16 → ERHOLD 16:02 → 2ND 17:56
PROVIDERS: ADMIT Hospitalist; ATTEND Hospitalist
DX: K85.90 Acute pancreatitis without necrosis or infection, unspecified (principal); N17.9 Acute kidney failure, unspecified; N30.00 Acute cystitis without hematuria; M06.9 Rheumatoid arthritis, unspecified; D50.9 Iron deficiency anemia, unspecified; E78.1 Pure hyperglyceridemia; F41.9 Anxiety disorder, unspecified; R74.01 Elevation of levels of liver transaminase levels; Z88.1 Allergy status to other antibiotic agents; Z88.8 Allergy status to other drugs, medicaments and biological substances; Z98.51 Tubal ligation status; Z79.01 Long term (current) use of anticoagulants; Z90.49 Acquired absence of other specified parts of digestive tract; Z86.73 Personal history of transient ischemic attack (TIA), and cerebral infarction without residual deficits; Z86.718 Personal history of other venous thrombosis and embolism; Z90.710 Acquired absence of both cervix and uterus; Z79.899 Other long term (current) drug therapy
CPT/HCPCS: 36415; 74176; 74177; 74181; 76705; 80048; 80053; 80076; 81001; 83690; 83735; 84478; 85025; 87077; 87086; 87088; 87186; 96361; 96372; 96374; 96375; 99285; J1170; J2185; J2405; J2550; J3475; J3480; J7030; J7060; J7500; Q0162; Q0169; Q9967

== ENCOUNTER 2023-09-27 09:02 | Day surgery (SDC) | payer BC ==
[2023-09-27] MEDS ORDERED: LIDOCAINE 1% MPF 5 ML VIAL ONE (09:15)
[2023-09-27] MEDS: ACETAMINOPHEN 500 MG TAB ONE (09:31)
[2023-09-27] MEDS: DIPHENHYDRAMINE 25 MG TAB/CAP ONE (09:31)
[2023-09-27] MEDS ORDERED: NA CHLORIDE 0.9% 250 ML ONE (09:34)
[2023-09-27] MEDS: PROMETHAZINE INJ 25 MG/ML AMP ONE (09:44)
[2023-09-27] MEDS: NA CHLORIDE 0.9% IV SCH (09:50)
[2023-09-27] MEDS: INFLIXIMAB ABDA IV SCH (09:50)
[2023-09-27 11:02] VITALS: O2SAT 100; BMI 25.0
[2023-09-27 12:36] VITALS: TEMP 97.9
[2023-09-27 15:50] VITALS: BP 130/73
== END 2023-09-27 12:28 | disposition home or self-care (01) ==
LOC: DS 09:02
PROVIDERS: ATTEND Internal Medicine Gastroenterology
DX: K50.911 Crohn's disease, unspecified, with rectal bleeding (principal)
CPT/HCPCS: 96365; 96366; J2001; J2550; J7050; Q5104

== ENCOUNTER 2023-10-30 09:02 | Day surgery (SDC) | payer BC ==
[2023-10-30] MEDS: LIDOCAINE 1% MPF 5 ML VIAL ONE (09:23)
[2023-10-30] MEDS: PROMETHAZINE 25 MG TABLET ONE (09:24)
[2023-10-30] MEDS: ACETAMINOPHEN 500 MG TAB ONE (09:24)
[2023-10-30] MEDS: NA CHLORIDE 0.9% 100 ML ONE (09:25)
[2023-10-30] MEDS: DIPHENHYDRAMINE 25 MG TAB/CAP ONE (09:25)
[2023-10-30] MEDS ORDERED: ONDANSETRON 4 MG/2 ML VIAL ONE (10:38)
[2023-10-30] MEDS: ONDANSETRON 4 MG/2 ML VIAL IV ONE (10:40)
[2023-10-30] MEDS: INFLIXIMAB-ABDA 700 MG in NA CHLORIDE 0.9% 250 ML IV ONE (10:42)
[2023-10-30 11:08] VITALS: BMI 26.6
[2023-10-30 12:28] VITALS: BP 138/84; TEMP 98.4; O2SAT 97
== END 2023-10-30 12:38 | disposition home or self-care (01) ==
LOC: DS 09:02
PROVIDERS: ATTEND Internal Medicine Gastroenterology
DX: K50.911 Crohn's disease, unspecified, with rectal bleeding (principal)
CPT/HCPCS: 96365; 96366; Q0169; Q5104; J2001; J2405; J7050

== ENCOUNTER 2023-11-22 09:40 | Day surgery (SDC) | payer BC ==
[2023-11-22] MEDS ORDERED: NA CHLORIDE 0.9% 1,000 ML ONE (10:19)
[2023-11-22] MEDS: NA CHLORIDE 0.9% 0 ML ONE (10:39)
[2023-11-22] MEDS: ACETAMINOPHEN 500 MG TAB ONE (10:52)
[2023-11-22] MEDS: DIPHENHYDRAMINE 25 MG TAB/CAP ONE (10:52)
[2023-11-22] MEDS: LIDOCAINE 1% MPF 5 ML VIAL ONE (10:52)
[2023-11-22] MEDS: PROMETHAZINE INJ 25 MG/ML AMP ONE (10:54)
[2023-11-22] MEDS: INFLIXIMAB-ABDA 700 MG in NA CHLORIDE 0.9% 250 ML IV ONE (11:30)
[2023-11-22 12:49] VITALS: BMI 25.8
[2023-11-22 15:20] VITALS: BP 84/40; TEMP 97; O2SAT 99
== END 2023-11-22 14:21 | disposition home or self-care (01) ==
LOC: DS 09:40
PROVIDERS: ATTEND Internal Medicine Gastroenterology
DX: K50.911 Crohn's disease, unspecified, with rectal bleeding (principal)
CPT/HCPCS: 96365; 96366; J2550; Q5104; J2001; J7050; J7030

== ENCOUNTER 2023-12-20 09:37 | Day surgery (SDC) | payer BC ==
[2023-12-20] MEDS: ACETAMINOPHEN 500 MG TAB ONE (10:10)
[2023-12-20] MEDS: DIPHENHYDRAMINE 25 MG TAB/CAP ONE (10:10)
[2023-12-20] MEDS: PROMETHAZINE INJ 25 MG/ML AMP ONE (10:35)
[2023-12-20] MEDS: INFLIXIMAB-ABDA 700 MG in NA CHLORIDE 0.9% 250 ML IV ONE (10:40)
[2023-12-20 11:10] VITALS: BMI 25.0
[2023-12-20 11:21] VITALS: O2SAT 100
[2023-12-20] MEDS: NA CHLORIDE 0.9% 50 ML ONE (12:51)
[2023-12-20 14:02] VITALS: BP 124/74; TEMP 98.4
== END 2023-12-20 13:10 | disposition home or self-care (01) ==
LOC: DS 09:37
PROVIDERS: ATTEND Internal Medicine Gastroenterology
DX: K50.911 Crohn's disease, unspecified, with rectal bleeding (principal)
CPT/HCPCS: 96365; 96366; J2550; Q5104; J7050

== ENCOUNTER 2024-01-21 09:57 | Emergency (ER) | payer BC ==
--- OUTSIDE RECORDS SUMMARY | 2024-01-21 10:18 | XMS REPORT | Continuity of Care Document ---
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 [facility] NaCl 0.9% (NS) PgBk 50 mL with ceFEPIme 1 gram SolR 1,000 mg 2020-02 00:00: 00 12-23 05:59 :00 No [id number] 1000mg Infuse 1,000 mg every 12 (twelve) hours for 10 days. [facility] vancomycin/ 0.9 % sod chloride (VANCOMYCIN 1500 MG IN NS 500 ML) 1.5 gram/500 mL Soln 2020-02 00:00: 00 12-23 05:59 :00 No [id number] 1500mg 1,500 mg by IV Infusion route every 24 (twenty-fo ur) hours for 10 days. [facility] vancomycin 1500 mg in NS 500 mL IV Piggyback RTU 1,500 mg 2020-02 17:30: 00 Yes 1500mg 1,500 mg, IV Infusion, Q24H ABX, First dose on Sun12/11/20 at 1230, Until Discontinu ed, Administer over 90 Minutes
Reason for Anti-Infec tive: Empiric Therapy for Suspected Infection< br>Empiric Therapy Site: Blood
D uration of therapy: 7 days [facility] KCL (KLOR-CON M20) tablet 40 mEq 2020-02 23:30: 00 12-11 01:25 :00 No 40meq 40 mEq, Oral, ONCE, 1 dose, On Sun12/10/20 at 1830, Routine [facility] tolvaptan (SAMSCA) tablet 15 mg 2020-02 23:30: 00 12-11 01:25 :00 No 15mg 15 mg, Oral, ONCE NOW, 1 dose, On Sun12/10/20 at 1830, Routine
science faculty member approving Restricted medication : NICOLE SANCHEZ [facility] sodium chloride tablet 0.5 g 2020-02 22:00: 00 12-10 22:30 :42 No 500mg 0.5 g (500 mg), Oral, TID MEALS, First dose on Sun12/10/20 at 1700, Until Discontinu ed, Routine [facility] ceFEPIme (MAXIPIME) 1,000 mg in NaCl 0.9% (NS) 50 mL MINI-BAG 2020-02 17:45: 00 Yes 1000mg 1,000 mg, IV Piggyback, Q12H ABX, First dose on Sun12/10/20 at 1245, Until Discontinu ed, Administer over 30 Minutes, 50 mL
Reas on for Anti-Infec tive: Documented Infection< br>Documen karly Infection Site: Skin / Soft Tissue
Duration of Therapy: Other (see Comments) [facility] potassium phosphate 30 mmol in NaCl 0.9% (NS) 150 mL piggyback 2020-02 13:15: 00 12-10 14:16 :00 No 30mmol 30 mmol, IV Piggyback, ONCE, 1 dose, On Sun12/10/20 at 0815 [facility] phosphorus (K PHOS NEUTRAL) tablet 1 tablet 2020-02 13:00: 00 12-11 15:49 :55 No 250mg 1 tablet (250 mg), Oral, QID, First dose on Sun12/10/20 at 0800, Until Discontinu ed, Routine [facility] KCL (KLOR-CON M20) tablet 40 mEq 2020-02 13:00: 00 12-10 17:44 :00 No 40meq 40 mEq, Oral, Q4H, 2 doses, First dose (after last reorder) on Sun12/10/20 at 0800, Last dose on Sun12/10/20 at 1200, Routine [facility] aMILoride (MIDAMOR) tablet 10 mg 2020-02 01:00: 00 12-11 15:49 :55 No 10mg 10 mg, Oral, BID, First dose on Sun12/09/20 at 2000, Until Discontinu ed, Routine [facility] potassium phosphate 15 mmol in NaCl 0.9% (NS) 150 mL piggyback 2020-02 15:45: 00 12-09 16:34 :00 No 15mmol 15 mmol, IV Piggyback, ONCE, 1 dose, On Sun12/09/20 at 1045, 150 mL [facility] predniSONE (DELTASONE) tablet 30 mg 2020-02 15:00: 00 Yes 30mg 30 mg, Oral, DAILY, First dose on Sun12/09/20 at 1000, Until Discontinu ed, Routine [facility] calcitrioL (ROCALTROL) capsule 0.5 mcg 2020-02 15:00: 00 Yes .5ug 0.5 mcg, Oral, DAILY, First dose on Sun12/09/20 at 1000, Until Discontinu ed, Routine [facility] KCL (KLOR-CON M20) tablet 40 mEq 2020-02 15:00: 00 12-09 16:35 :00 No 40meq 40 mEq, Oral, Q4H, 2 doses, First dose (after last modificati on) on Sun12/09/20 at 1000, Last dose on Sun12/09/20 at 1200, Routine [facility] hydrocortis one sod succ (CORTEF) 60 mg in NaCl 0.9% (NS) piggyback 2020-02 13:43: 13 12-09 14:47 :30 No 60mg 60 mg, IV Piggyback, DAILY, First dose (after last modificati on) on Sun12/09/20 at 0900, Until Discontinu ed, Administer over 30 Minutes, 60 mL [facility] iopamidol (ISOVUE 370-500 mL) injection 120 mL 2020-02 17:23: 00 12-08 17:24 :00 No [id number] 120mL 120 mL, Intravenou s, ONCE, 1 dose, On Sun12/08/20 at 1245, Routine [facility] KCL (KLOR-CON M20) tablet 20 mEq 2020-02 14:00: 00 12-09 14:47 :30 No 20meq 20 mEq, Oral, DAILY, First dose on Sun12/08/20 at 0900, Until Discontinu ed, Routine [facility] hydrocortis one sod succ (CORTEF) 60 mg in NaCl 0.9% (NS) piggyback 2020-02 01:00: 00 12-09 13:43 :20 No 60mg 60 mg, IV Piggyback, Q12H, First dose (after last modificati on) on Sun12/07/20 at 2000, Until Discontinu ed, Administer over 30 Minutes, 60 mL [facility] lidocaine 1% (PF) (XYLOCAINE) injection 5 mL 2020-02 18:44: 15 Yes 5mL 5 mL, Subcutaneo us, PRN, Starting on Sun12/07/20 at 1344, Until Discontinu ed, Routine, Local anesthesia [facility] NaCl 0.9% (NS) injection 10 mL 2020-02 17:49: 04 Yes 10mL 10 mL, Slow IV Push, PRN, Starting on Sun12/07/20 at 1249, Until Discontinu ed, Routine, line maintenanc e [facility] KCL (KLOR-CON M20) tablet 20 mEq 2020-02 14:45: 00 12-07 13:52 :00 No 20meq 20 mEq, Oral, ONCE, 1 dose, On Sun12/07/20 at 0945, Routine [facility] diphenoxyla te-atropine (LOMOTIL) 2.5-0.025 mg tablet 2 tablet 2020-02 13:00: 00 Yes 2{tbl} 2 tablet, Oral, TID, First dose (after last modificati on) on Sun12/07/20 at 0800, Until Discontinu ed, Routine [facility] diphenoxyla te-atropine (LOMOTIL) 2.5-0.025 mg tablet 1 tablet 2020-02 04:15: 00 12-07 03:27 :00 No 1{tbl} 1 tablet, Oral, ONCE, 1 dose, On Sun12/06/20 at 2315, Routine [facility] famotidine (PEPCID AC) tablet 40 mg 2020-02 02:00: 00 Yes 40mg 40 mg, Oral, QHS, First dose on Sun12/06/20 at 2100, Until Discontinu ed, Routine [facility] Nitrofurant oin&Nit. Macrocryst (MACROBID) 100 mg capsule 100 mg 2020-02 01:00: 00 12-10 16:54 :09 No 100mg 100 mg, Oral, BID, First dose on Sun12/06/20 at 2000, Until Discontinu ed, Routine
Reason for Anti-Infec tive: Documented Infection< br>Documen karly Infection Site: Urine
D uration of Therapy: 7 days [facility] lactobacill us acidophilus tablet 0.5 mg 2020-02 19:00: 00 Yes .5mg 0.5 mg, Oral, TID, First dose on Sun12/06/20 at 1400, Until Discontinu ed, Routine [facility] diphenoxyla te-atropine (LOMOTIL) 2.5-0.025 mg tablet 1 tablet 2020-02 19:00: 00 12-07 02:34 :00 No 1{tbl} 1 tablet, Oral, TID, First dose (after last modificati on) on Sun12/06/20 at 1400, Until Discontinu ed, Routine [facility] vancom[facility] 1250 mg in NS 250 mL RTU IV Piggyback 1,250 mg 2020-02 18:30: 00 12-09 23:35 :38 No 15mg/kg 1,250 mg (rounded from 1,305 mg = 15 mg/kg ?87 kg), IV Piggyback, Q12H ABX, First dose (after last modificati on) on Sun12/06/20 at 1330, Until Discontinu ed, Administer over 90 Minutes
Reason for Anti-Infec tive: Empiric Therapy for Suspected Infection< br>Empiric Therapy Site: Blood
D uration of therapy: 7 days [facility] metoprolol succinate XL (TOPROL XL) tablet 25 mg 2020-02 14:00: 00 Yes 25mg 25 mg, Oral, DAILY, First dose on Sun12/06/20 at 0900, Until Discontinu ed [facility] foLIC acid (FOLATE) tablet 3 mg 2020-02 14:00: 00 Yes 3mg 3 mg, Oral, DAILY, First dose on Sun12/06/20 at 0900, Until Discontinu ed, Routine [facility] diphenoxyla te-atropine (LOMOTIL) 2.5-0.025 mg tablet 1 tablet 2020-02 14:00: 00 12-06 17:51 :45 No 1{tbl} 1 tablet, Oral, DAILY, First dose on Sun12/06/20 at 0900, Until Discontinu ed, Routine [facility] gabapentin (NEURONTIN) tablet 600 mg 2020-02 13:00: 00 Yes 600mg 600 mg, Oral, TID, First dose on Sun12/06/20 at 0800, Until Discontinu ed, Routine [facility] hydrocortis one sod succ (CORTEF) 60 mg in NaCl 0.9% (NS) piggyback 2020-02 11:00: 00 12-07 22:27 :12 No 60mg 60 mg, IV Piggyback, Q8H, First dose on Sun12/06/20 at 0600, Until Discontinu ed, Administer over 30 Minutes, 60 mL [facility] alum-mag hydroxide-s imeth (MAALOX PLUS / MAG-AL PLUS) 200-200-20 mg/5 mL suspension 30 mL 2020-02 09:20: 42 Yes 30mL 30 mL, Oral, Q6HPRN, Starting on Sun12/06/20 at 0420, Until Discontinu ed, Routine, Indigestio n [facility] vancomycin 1250 mg in NS 250 mL RTU IV Piggyback 1,250 mg 2020-02 04:30: 00 12-06 16:56 :46 No 15mg/kg 1,250 mg (rounded from 1,305 mg = 15 mg/kg ?87 kg), IV Piggyback, Q12H ABX, First dose on Sun12/05/20 at 2330, Until Discontinu ed, Administer over 90 Minutes
Reason for Anti-Infec tive: Empiric Therapy for Suspected Infection< br>Empiric Therapy Site: Blood
D uration of therapy: 7 days [facility] heparin (porcine) injection 5,000 Units 2020-02 03:00: 00 Yes 5000U 5,000 Units, Subcutaneo us, Q8H, First dose on Sun12/05/20 at 2200, Until Discontinu ed, Routine [facility] busPIRone (BUSPAR) tablet 20 mg 2020-02 02:30: 00 Yes 20mg 20 mg, Oral, TID, First dose (after last modificati on) on [place] 12/05/20 at 2130, Until Discontinu ed, Routine [facility] morpHINE injection 2 mg 2020-02 02:26: 54 12-06 09:22 :17 No 2mg 2 mg, Slow IV Push, Q4HPRN, Starting on Sun12/05/20 at 2126, Until Sun12/06/20 at 0422, Routine, breakthrou gh [facility] proCHLORper azine (COMPAZINE) injection 10 mg 2020-02 02:25: 36 Yes 10mg 10 mg, Slow IV Push, Q6HPRN, Starting on Sun12/05/20 at 2125, Until Discontinu ed, Routine, Nausea and Vomiting (N/V) [facility] LORazepam (ATIVAN) tablet 1 mg 2020-02 02:21: 44 Yes 1mg 1 mg, Oral, QHSPRN, Starting on Sun12/05/20 at 2120, Until Discontinu ed, Routine, Anxiety, Agitation, insomnia [facility] HYDROcodone -acetaminop hen (HYCET) 7.5-325 mg/15 mL solution 7.5 mg 2020-02 02:21: 29 12-06 09:22 :17 No 7.5mg 7.5 mg, Oral, Q6HPRN, Starting on Sun12/05/20 at 2120, Until Sun12/06/20 at 0422, Pain (scale 7-10) [facility] albuterol (VENTOLIN) inhaler 2 Puff 2020-02 02:20: 03 Yes 2{puff} 2 Puff, Inhalation , Q4HPRN, Starting on Sun12/05/20 at 0, Until Discontinu ed, Routine, Wheezing, Shortness of Breath [facility] potassium chloride in water 10 mEq/100 mL RTU 10 mEq 2020-02 02:00: 00 12-06 05:59 :00 No 10meq 10 mEq, IV Piggyback, Q1H, 4 doses, First dose on Sun12/05/20 at 2100, Last dose on Sun12/06/20 at 0000, Administer over 60 Minutes, 100 mL [facility] magnesium sulfate in water 2 gram/50 mL (4 %) infusion 2 g 2020-02 02:00: 00 12-06 04:57 :00 No 2g 2 g, IV Piggyback, Q1H, 2 doses, First dose on Sun12/05/20 at 2100, Last dose on Sun12/05/20 at 2200, Routine [facility] calcium gluconate 2 g in NaCl 100 mL (ISO-OSM) RTU IV infusion 2 g 2020-02 01:15: 00 12-06 01:32 :00 No 2g 2 g, IV Infusion, ONCE, 1 dose, On Sun12/05/20 at 2015, Routine [facility] potassium chloride in water 10 mEq/100 mL RTU 10 mEq 2020-02 01:00: 00 12-06 03:07 :43 No 10meq 10 mEq, IV Piggyback, Q1H, 4 doses, First dose on Sun12/05/20 at 2000, Last dose on Sun12/05/20 at 2300, Administer over 60 Minutes, 100 mL [facility] KCL (KLOR-CON M20) tablet 40 mEq 2020-02 01:00: 00 12-06 02:59 :00 No 40meq 40 mEq, Oral, Q1H, 2 doses, First dose on Sun12/05/20 at 2000, Last dose on Sun12/05/20 at 2100, Routine [facility] NaCl 0.9% (NS) IV infusion 1,000 mL 2020-02 22:45: 00 12-07 20:37 :12 No 1000mL at 150 mL/hr, Intravenou s, CONTINUOUS , Starting on Sun12/05/20 at 1745, Until Sun12/07/20 at 1537, Routine [facility] piperacilli n-tazobacta m (ZOSYN) 3.375 g in NaCl 0.9% (NS) 100 mL MINI-BAG 2020-02 21:45: 00 12-05 21:08 :00 No 3.375g 3.375 g, IV Piggyback, ONCE, 1 dose, On Sun12/05/20 at 1645, Administer over 30 Minutes, 100 mL
Reas on for Anti-Infec tive: Empiric Therapy for Suspected Infection< br>Empiric Therapy Site: Blood
D uration of therapy: 72 hours [facility] NaCl 0.9% (NS) IV infusion 1,000 mL 2020-02 21:30: 00 12-06 00:00 :54 No 1000mL at 125 mL/hr, IV Infusion, CONTINUOUS , Starting on 12/05/20 at 1630, Until Sun12/05/20 at 1900, Routine [facility] ondansetron (ZOFRAN (PF)) injection 4 mg 2020-02 21:29: 30 Yes 4mg 4 mg, Slow IV Push, Q6HPRN, Starting on Sun12/05/20 at 1629, Until Discontinu ed, Routine, Nausea and Vomiting (N/V) [facility] acetaminoph en (TYLENOL) tablet 650 mg 2020-02 21:29: 19 Yes 650mg 650 mg, Oral, Q6HPRN, Starting on Sun12/05/20 at 1629, Until Discontinu ed, Routine, Pain (scale 1-3), Temp > 38.5 C [facility] dicyclomine 20 mg tablet 2020-02 21:23: 29 12-05 00:00 :00 No 20mg Take 20 mg by mouth 3 (three) times daily. [facility] hydrocortis one sod succ (CORTEF) injection 100 mg 2020-02 21:00: 00 12-05 20:23 :00 No 100mg 100 mg, IV Push, ONCE, 1 dose, On Sun12/05/20 at 1600, Routine [facility] NaCl 0.9% (NS) bolus infusion 2,448 mL 2020-02 19:00: 00 12-05 19:44 :00 No 30mL/kg at 999 mL/hr, 2,448 mL (30 mL/kg ?81.6 kg), IV Infusion, ONCE, 1 dose, On Sun12/05/20 at 1400, STAT [facility] rifAMPin 300 mg capsule 2020-02 00:00: 00 12-12 00:00 :00 No 300mg Take 300 mg by mouth 2 (two) times daily. [facility] sulfamethox azole-trime thoprim 400-80 mg per tablet 2020-02 0-20 00:00: 00 12-12 00:00 :00 No 1{tbl} Take 1 tablet by mouth 2 (two) times daily. [facility] AIMOVIG AUTOINJECTO R 140 mg/mL AtIn 10-12 00:00: 00 Yes 140mg INJECT 140 MG UNDER THE SKIN ONCE EVERY MONTH. [facility] magnesium oxide (MAG-OX 400) tablet 400 mg 07-15 14:00: 00 Yes 400mg 400 mg, Oral, DAILY, First dose on Sun07/15/20 at 0900, Until Discontinu ed, Routine [facility] busPIRone (BUSPAR) tablet 20 mg 07-15 01:00: 00 Yes 20mg 20 mg, Oral, BID, First dose on Sun07/14/20 at 2000, Until Discontinu ed, Routine [facility] magnesium oxide 420 mg Tab 07-15 00:00: 00 12-05 00:00 :00 No [id number] 400mg Take 400 mg by mouth daily. [facility] metoprolol succinate (TOPROL XL ORAL) 07-14 23:15: 16 Yes 25mg Take 25 mg by mouth daily. [facility] dicyclomine 20 mg tablet 07-14 23:15: 16 Yes 20mg Take 20 mg by mouth 3 (three) times daily. [facility] LORazepam (ATIVAN) tablet 2 mg 07-14 23:04: 49 Yes 2mg 2 mg, Oral, QHSPRN, 1 dose, Starting Sun07/14/20 at 1804, Until Discontinu ed, Routine, insomnia [facility] metoprolol succinate (TOPROL XL ORAL) 07-14 18:15: 16 Yes 25mg Take 25 mg by mouth daily. [facility] dicyclomine 20 mg tablet 07-14 18:15: 16 Yes 20mg Take 20 mg by mouth 3 (three) times daily. [facility] ondansetron (ZOFRAN (PF)) injection 4 mg 07-14 17:21: 18 Yes 4mg 4 mg, Slow IV Push, Q8HPRN, Starting Sun07/14/20 at 1221, Until Discontinu ed, Routine, Nausea and Vomiting (N/V) [facility] metoclopram marilyn HCl (REGLAN) injection 10 mg 07-14 17:00: 00 Yes 10mg 10 mg, Slow IV Push, Q6H, First dose (after last reorder) on Sun07/14/20 at 1200, Until Discontinu ed, GIGI [facility] ketorolac (TORADOL) injection 15 mg 07-14 17:00: 00 07-15 16:59 :00 No 15mg 15 mg, Slow IV Push, Q6H, 4 doses, First dose on Sun07/14/20 at 1200, Last dose on Sun07/15/20 at 0600, Routine
science faculty member approving Restricted medication : CHRISTINA ROQUE [facility] Sliding Scale Insulin - Lispro (HumaLOG) + Fsbg Testing 07-14 14:15: 00 Yes Subcutaneo us, TID MEALS+HS, First dose on Sun07/14/20 at 0915, Until Discontinu ed, Routine [facility] predniSONE (DELTASONE) tablet 80 mg 07-14 14:15: 00 Yes 80mg 80 mg, Oral, DAILY, First dose on Sun07/14/20 at 0915, Until Discontinu ed, Routine [facility] diphenhydrA MINE (BENADRYL) injection 25 mg 07-14 14:15: 00 Yes 25mg 25 mg, Slow IV Push, Q6H, First dose (after last reorder) on Sun07/14/20 at 0915, Until Discontinu ed, GIGI [facility] pantoprazol e (PROTONIX) EC tablet 40 mg 07-14 14:00: 00 Yes 40mg 40 mg, Oral, DAILY, First dose on Sun07/14/20 at 0900, Until Discontinu ed, Routine [facility] azaTHIOprin e (IMURAN) tablet 150 mg 07-14 14:00: 00 Yes 150mg 150 mg, Oral, DAILY, First dose on Sun07/14/20 at 0900, Until Discontinu ed, Routine [facility] losartan (COZAAR) tablet 50 mg 07-14 14:00: 00 Yes 50mg 50 mg, Oral, DAILY, First dose on Sun07/14/20 at 0900, Until Discontinu ed, Routine [facility] metoprolol succinate XL (TOPROL XL) tablet 25 mg 07-14 14:00: 00 Yes 25mg 25 mg, Oral, DAILY, First dose on Sun07/14/20 at 0900, Until Discontinu ed [facility] heparin (porcine) injection 5,000 Units 07-14 13:00: 00 Yes 5000U 5,000 Units, Subcutaneo us, Q12H, First dose on Sun07/14/20 at 0800, Until Discontinu ed, Routine [facility] gabapentin (NEURONTIN) tablet 600 mg 07-14 13:00: 00 Yes 600mg 600 mg, Oral, TID, First dose on Sun07/14/20 at 0800, Until Discontinu ed, Routine [facility] ketorolac (TORADOL) injection 15 mg 07-14 11:15: 00 07-14 13:07 :00 No 15mg 15 mg, Slow IV Push, ONCE, 1 dose, Sun07/14/20 at 0615, Routine
science faculty member approving Restricted medication : CHRISTINA ROQUE [facility] magnesium sulfate in water 2 gram/50 mL (4 %) infusion 2 g 07-14 11:15: 00 07-14 15:20 :00 No 2g 2 g, IV Piggyback, ONCE, 1 dose, Sun07/14/20 at 0615, Routine [facility] NaCl 0.9% (NS) IV infusion 1,000 mL 07-14 10:15: 00 Yes 1000mL at 50 mL/hr, IV Infusion, CONTINUOUS , Starting Sun07/14/20 at 0515, Until Discontinu ed, Routine [facility] acetaminoph en (TYLENOL) tablet 650 mg 07-14 10:11: 51 Yes 650mg 650 mg, Oral, Q6HPRN, Starting Sun07/14/20 at 0511, Until Discontinu ed, Routine, Pain (scale 4-6) [facility] docusate (COLACE) capsule 100 mg 07-14 10:11: 50 Yes 100mg 100 mg, Oral, QDAILYPRN, Starting Sun07/14/20 at 0511, Until Discontinu ed, Routine, Constipati on [facility] diphenhydrA MINE (BENADRYL) injection 25 mg 07-14 01:00: 00 07-14 09:39 :00 No 25mg 25 mg, Slow IV Push, ONCE, 1 dose, 07/13/20 at 2000, STAT [facility] metoclopram marilyn HCl (REGLAN) injection 10 mg 07-14 01:00: 00 07-14 09:39 :00 No 10mg 10 mg, Slow IV Push, ONCE, 1 dose, 07/13/20 at 2000, GIGI [facility] amitriptyli ne 25 mg tablet 07-14 00:00: 00 12-05 00:00 :00 No [id number] 25mg Take 1 tablet by mouth at bedtime. [facility] riboflavin, vitamin B2, 400 mg Tab 07-14 00:00: 00 12-05 00:00 :00 No [id number] 400mg Take 400 mg by mouth daily. [facility] metoprolol (LOPRESSOR) injection 5 mg 07-07 04:15: 00 07-07 03:20 :00 No 5mg 5 mg, Slow IV Push, ONCE, 1 dose, 07/06/20 at 2315, GIGI [facility] ondansetron (ZOFRAN (PF)) injection 4 mg 07-07 04:15: 00 07-07 03:20 :00 No 4mg 4 mg, Slow IV Push, ONCE, 1 dose, 07/06/20 at 2315, GIGI [facility] morpHINE injection 4 mg 07-07 04:15: 00 07-07 03:20 :00 No 4mg 4 mg, Slow IV Push, ONCE, 1 dose, 07/06/20 at 2315, STAT [facility] LORazepam (ATIVAN) injection 2 mg 07-07 03:30: 00 07-07 02:26 :00 No 2mg 2 mg, Intramuscu lar, ONCE, 1 dose, 07/06/20 at 2230, STAT [facility] cloNIDine (CATAPRES) tablet 0.2 mg 07-07 03:00: 00 07-07 01:58 :00 No .2mg 0.2 mg, Oral, ONCE, 1 dose, 07/06/20 at 2200, STAT [facility] ondansetron (ZOFRAN-ODT ) disintegrat ing tablet 4 mg 07-07 02:00: 00 07-07 01:10 :00 No 4mg 4 mg, Oral, ONCE, 1 dose, 07/06/20 at 2100, Routine [facility] butorphanol (STADOL) injection 2 mg 07-07 02:00: 00 07-07 01:10 :00 No 2mg 2 mg, Intramuscu lar, ONCE NOW, 1 dose, 07/06/20 at 2100, Routine [facility] ondansetron (ZOFRAN) 4 mg tablet 07-06 00:00: 00 12-05 00:00 :00 No [id number] 4mg Take 1 tablet by mouth every 8 (eight) hours as needed for Nausea and Vomiting (N/V). [facility] butalbital- aspirin-caf feine-codei ne (FIORINAL-C ODEINE #3) per capsule 07-06 00:00: 00 07-14 00:00 :00 No [id number] 1{capsu le} Take 1 capsule by mouth every 4 (four) hours as needed for Pain for up to 7 days. Indication s: acute pain [facility] butorphanol (STADOL) injection 1 mg 07-04 21:15: 00 07-04 20:28 :00 No 1mg 1 mg, IV Push, ONCE, 1 dose, 07/04/20 at 1615, Routine [facility] proMETHazin e (PHENERGAN) 25 mg in NaCl 0.9% (NS) 50 mL piggyback 07-04 21:15: 07-04 21:15 :00 No 25mg 25 mg, IV Piggyback, ONCE, 1 dose, 07/04/20 at 1615, 50 mL [facility] butorphanol (STADOL) injection 1 mg 07-04 19:30: 07-04 19:00 :00 No 1mg 1 mg, IV Push, ONCE, 1 dose, 07/04/20 at 1430, Routine [facility] LORazepam (ATIVAN) injection 1 mg 07-04 19:30: 00 07-04 19:00 :00 No 1mg 1 mg, Slow IV Push, ONCE, 1 dose, 07/04/20 at 1430, STAT [facility] NaCl 0.9% (NS) IV infusion 1,000 mL 07-04 19:30: 07-04 20:53 :00 No 1000mL at 999 mL/hr, IV Infusion, ONCE, 1 dose, 07/04/20 at 1430, Routine [facility] dexamethaso ne (DECADRON PHOSPHATE) injection 10 mg 07-04 19:30: 00 07-04 19:02 :00 No 10mg 10 mg, IV Push, ONCE, 1 dose, 07/04/20 at 1430, STAT [facility] butalbital- acetaminoph en-caff (ESGIC) 50-325-40 mg tablet 2 tablet 07-04 19:30: 00 07-04 18:40 :00 No 2{tbl} 2 tablet, Oral, ONCE, 1 dose, [place] 07/04/20 at 1430, Routine [facility] butalbital- acetaminoph en-caff 50-325-40 mg tablet 07-04 00:00: 00 12-05 00:00 :00 No [id number] 1{tbl} Take 1 tablet by mouth every 6 (six) hours as needed for Pain (scale 7-10). [facility] busPIRone (BUSPAR) tablet 20 mg 06-29 01:00: 00 Yes 20mg 20 mg, Oral, TID, First dose (after last modificati on) on Sun06/28/20 at 1999, Until Discontinu ed, Routine [facility] gabapentin (NEURONTIN) tablet 600 mg 06-29 01:00: 00 Yes 600mg 600 mg, Oral, TID, First dose (after last modificati on) on Sun06/28/20 at 1999, Until Discontinu ed, Routine [facility] metoprolol succinate (TOPROL XL ORAL) 06-29 00:16: 46 Yes 25mg Take 25 mg by mouth daily. [facility] dicyclomine 20 mg tablet 06-29 00:16: 46 Yes 20mg Take 20 mg by mouth 3 (three) times daily. [facility] ondansetron (ZOFRAN ODT) 4 mg disintegrat ing tablet 06-28 21:55: 40 06-28 00:00 :00 No 4mg Take 4 mg by mouth every 8 (eight) hours as needed. [facility] busPIRone 15 mg tablet 06-28 21:55: 40 06-28 00:00 :00 No 15mg Take 15 mg by mouth 3 (three) times daily. [facility] butorphanol (STADOL) injection 1 mg 06-28 21:41: 00 06-28 22:04 :00 No 1mg 1 mg, IV Push, ONCE, 1 dose, Sun06/28/20 at 1645, Routine [facility] loperamide (IMODIUM A-D) capsule 2 mg 06-28 21:30: 00 06-28 22:26 :00 No 2mg 2 mg, Oral, ONCE, 1 dose, Sun06/28/20 at 1630, Routine [facility] LORazepam (ATIVAN) tablet 1 mg 06-28 20:40: 49 Yes 1mg 1 mg, Oral, QHSPRN, 2 doses, Starting Sun06/28/20 at 1540, Until Discontinu ed, Routine, Anxiety [facility] butorphanol (STADOL) injection 1 mg 06-28 15:35: 00 06-28 20:07 :00 No 1mg 1 mg, IV Push, ONCE, 1 dose, Sun06/28/20 at 1045, Routine [facility] proMETHazin e (PHENERGAN) 25 mg in NaCl 0.9% (NS) 50 mL IV piggyback 06-28 13:15: 38 Yes 25mg 25 mg, IV Piggyback, Q6HPRN, Starting Sun06/28/20 at 0815, Until Discontinu ed, Routine, Nausea and Vomiting (N/V) [facility] hydrOXYzine (ATARAX) tablet 10 mg 06-28 06:58: 54 Yes 10mg 10 mg, Oral, Q6HPRN, Starting Sun06/28/20 at 0158, Until Discontinu ed, Routine, Anxiety [facility] melatonin (MELATIN) tablet 3 mg 06-28 02:00: 00 Yes 3mg 3 mg, Oral, QHS, First dose on 06/27/20 at 2100, Until Discontinu ed, Routine [facility] butalbital- acetaminoph en-caff (ESGIC) 50-325-40 mg tablet 1 tablet 06-28 01:06: 14 Yes 1{tbl} 1 tablet, Oral, Q6HPRN, Starting 06/27/20 at 2006, Until Discontinu ed, Routine, headache [facility] NaCl 0.9% (NS) bolus infusion 250 mL 06-28 00:30: 00 06-28 00:30 :00 No 250mL at 999 mL/hr, 250 mL, IV Piggyback, ONCE, 1 dose, 06/27/20 at 1930, STAT [facility] gabapentin 600 mg tablet 06-28 00:00: 00 Yes 600mg Take 1 tablet by mouth 3 (three) times daily. [facility] busPIRone 10 mg tablet 06-28 00:00: 00 Yes 20mg Take 2 tablets by mouth 3 (three) times daily. [facility] LORazepam 1 mg tablet 06-28 00:00: 00 Yes 1mg Take 1 tablet by mouth at bedtime as needed for Anxiety or Agitation (insomnia) . [facility] proMETHazin e 25 mg tablet 06-28 00:00: 00 02-12 00:00 :00 No 12.5mg Take 0.5 tablets by mouth every 6 (six) hours as needed for Nausea and Vomiting (N/V). [facility] cyclobenzap rine 5 mg tablet 06-28 00:00: 00 12-05 00:00 :00 No 5mg Take 1 tablet by mouth 3 (three) times daily. [facility] ubrogepant (UBRELVY) 50 mg Tab 06-28 00:00: 00 12-05 00:00 :00 No 50mg Take 50 mg by mouth as needed for Other (Headache) . [facility] ondansetron (ZOFRAN (PF)) injection 4 mg 06-27 21:25: 04 06-28 13:15 :50 No 4mg 4 mg, Slow IV Push, Q6HPRN, Starting 06/27/20 at 1625, Until 06/28/20 at 0815, Routine, Nausea and Vomiting (N/V) [facility] cyclobenzap rine (FLEXERIL) tablet 5 mg 06-27 16:00: 00 Yes 5mg 5 mg, Oral, TID, First dose on 06/27/20 at 1100, Until Discontinu ed, Routine [facility] pantoprazol e (PROTONIX) EC tablet 40 mg 06-27 14:00: 00 Yes 40mg 40 mg, Oral, DAILY, First dose on 06/27/20 at 0900, Until Discontinu ed, Routine [facility] losartan (COZAAR) tablet 50 mg 06-27 14:00: 00 Yes 50mg 50 mg, Oral, DAILY, First dose on 06/27/20 at 0900, Until Discontinu ed, Routine [facility] metoprolol succinate XL (TOPROL XL) tablet 25 mg 06-27 14:00: 00 Yes 25mg 25 mg, Oral, DAILY, First dose on 06/27/20 at 0900, Until Discontinu ed [facility] azaTHIOprin e (IMURAN) tablet 150 mg 06-27 14:00: 00 Yes 150mg 150 mg, Oral, DAILY, First dose on 06/27/20 at 0900, Until Discontinu ed, Routine [facility] heparin (porcine) injection 5,000 Units 06-27 13:00: 00 Yes 5000U 5,000 Units, Subcutaneo us, Q12H, First dose on 06/27/20 at 0800, Until Discontinu ed, Routine [facility] dicyclomine (BENTYL) tablet 20 mg 06-27 13:00: 00 Yes 20mg 20 mg, Oral, TID, First dose on 06/27/20 at 0800, Until Discontinu ed, Routine [facility] gabapentin (NEURONTIN) capsule 400 mg 06-27 13:00: 00 06-28 20:40 :15 No 400mg 400 mg, Oral, TID, First dose on 06/27/20 at 0800, Until Discontinu ed, Routine [facility] morpHINE injection 2 mg 06-27 10:00: 00 06-27 09:07 :00 No 2mg 2 mg, Slow IV Push, ONCE, 1 dose, 06/27/20 at 0500, GIGI [facility] LORazepam (ATIVAN) tablet 2 mg 06-27 06:00: 00 06-27 08:58 :00 No 2mg 2 mg, Oral, ONCE, 1 dose, 06/27/20 at 0100, Routine [facility] gabapentin (NEURONTIN) tablet 600 mg 06-27 05:00: 00 06-27 04:03 :00 No 600mg 600 mg, Oral, ONCE, 1 dose, 06/27/20 at 0000, GIGI [facility] magnesium sulfate in water 2 gram/50 mL (4 %) infusion 2 g 06-27 04:15: 00 06-27 06:10 :00 No 2g 2 g, IV Piggyback, ONCE, 1 dose, 06/26/20 at 2315, [facility] valproate (DEPACON) 500 mg in D5W piggyback 06-27 04:15: 00 06-27 04:54 :00 No 500mg 500 mg, IV Piggyback, ONCE, 1 dose, 06/26/20 at 2315, 100 mL [facility] LORazepam (ATIVAN) tablet 1 mg 06-27 04:00: 00 06-28 01:27 :00 No 1mg 1 mg, Oral, QHS, 2 doses, First dose (after last modificati on) on 06/26/20 at 2300, Last dose on 06/27/20 at 2100, Routine [facility] proMETHazin e (PHENERGAN) injection 25 mg 06-27 03:54: 03 06-27 16:21 :00 No 25mg 25 mg, Intramuscu lar, Q6HPRN, 2 doses, Starting 06/26/20 at 2254, Until Discontinu ed, Routine, Nausea and Vomiting (N/V) [facility] NaCl 0.9% (NS) SolP 250 mL with inFLIXimab 100 mg SolR 06-27 03:53: 04 06-26 00:00 :00 No Infuse once now. [facility] acetaminoph en (TYLENOL) tablet 650 mg 06-27 03:49: 19 Yes 650mg 650 mg, Oral, Q6HPRN, Starting 06/26/20 at 2249, Until Discontinu ed, Routine, Pain (scale 4-6) [facility] oxybutynin chloride (DITROPAN) tablet 5 mg 06-27 03:49: 06 Yes 5mg 5 mg, Oral, TIDPRN, Starting 06/26/20 at 2249, Until Discontinu ed, Routine, Bladder spasms [facility] ketorolac (TORADOL) injection 30 mg 06-27 03:46: 19 06-27 16:21 :00 No 30mg 30 mg, Slow IV Push, Q6HPRN, 2 doses, Starting 06/26/20 at 2246, Until Discontinu ed, Routine, Pain (scale 7-10)
F aculty member approving Restricted medication : CAIO HERNANDEZ [facility] proMETHazin e (PHENERGAN) 12.5 mg in NaCl 0.9% (NS) 50 mL piggyback 06-27 01:15: 00 06-27 00:18 :00 No 12.5mg 12.5 mg, IV Piggyback, ONCE, 1 dose, 06/26/20 at 2014, 50 mL [facility] morpHINE injection 4 mg 06-27 01:15: 00 06-27 00:18 :00 No 4mg 4 mg, Slow IV Push, ONCE, 1 dose, 06/26/20 at 2014, STAT [facility] iopamidol (ISOVUE 370-500 mL) injection 100 mL 06-26 23:15: 00 06-26 22:07 :00 No [id number] 100mL 100 mL, Intravenou s, ONCE, 1 dose, 06/26/20 at 1815, Routine [facility] ondansetron (ZOFRAN (PF)) injection 4 mg 06-26 22:15: 06-26 21:24 :00 No 4mg 4 mg, Slow IV Push, ONCE, 1 dose, 06/26/20 at 1715, [facility] butalbital- acetaminoph en-caff (ESGIC) 50-325-40 mg tablet 1 tablet 06-26 22:15: 00 06-26 21:26 :00 No 1{tbl} 1 tablet, Oral, ONCE NOW, 1 dose, 06/26/20 at 1715, [facility] nitroglycer in (NITROSTAT) sublingual tablet 0.4 mg 06-26 22:15: 06-26 21:26 :00 No .4mg 0.4 mg, Sublingual , ONCE, 1 dose, 06/26/20 at 1715, [facility] magnesium sulfate in water 2 gram/50 mL (4 %) infusion 2 g 06-26 22:15: 06-26 23:46 :00 No 2g 2 g, IV Piggyback, ONCE, 1 dose, 06/26/20 at 1715, Routine [facility] dexamethaso ne (DECADRON PHOSPHATE) injection 10 mg 06-26 22:15: 00 06-26 21:25 :00 No 10mg 10 mg, IV Push, ONCE, 1 dose, 06/26/20 at 1715, STAT [facility] diphenhydrA MINE (BENADRYL) injection 25 mg 06-26 21:30: 00 06-26 20:31 :00 No 25mg 25 mg, Slow IV Push, ONCE, 1 dose, 06/26/20 at 1630, STAT [facility] metoclopram marilyn HCl (REGLAN) injection 10 mg 06-26 21:30: 00 06-26 20:30 :00 No 10mg 10 mg, Slow IV Push, ONCE, 1 dose, 06/26/20 at 1630, GIGI [facility] ketorolac (TORADOL) injection 30 mg 06-26 21:30: 00 06-26 20:31 :00 No 30mg 30 mg, Slow IV Push, ONCE, 1 dose, 06/26/20 at 1630, GIGI
Fa culty member approving Restricted medication : EMERGENCY ROOM, [facility] NaCl 0.9% (NS) bolus infusion 1,000 mL 06-26 20:30: 00 06-26 22:32 :00 No 1000mL at 999 mL/hr, 1,000 mL, IV Infusion, ONCE, 1 dose, 06/26/20 at 1530, GIGI [facility] aspirin tablet 325 mg 06-26 20:15: 00 06-26 20:30 :00 No 325mg 325 mg, Oral, ONCE, 1 dose, 06/26/20 at 1515, STAT [facility] Estradiol 0.1 MG/GM Estradiol 0.1 MG/GM 06-22 00:00: 00 No Estradiol 0.1 MG/GM Estradiol 0.1 MG/GM Estradiol 0.1 MG/GM 06-22 00:00: 00 No Estradiol 0.1 MG/GM Estradiol 0.1 MG/GM Estradiol 0.1 MG/GM 06-22 00:00: 00 No Estradiol 0.1 MG/GM NaCl 0.9% (NS) SolP 250 mL with inFLIXimab 100 mg SolR 06-02 16:54: 47 Yes Infuse once now. [facility] metoprolol succinate (TOPROL XL ORAL) 06-02 16:54: 47 Yes 25mg Take 25 mg by mouth daily. [facility] dicyclomine 20 mg tablet 06-02 16:54: 47 Yes 20mg Take 20 mg by mouth 3 (three) times daily. [facility] ondansetron (ZOFRAN ODT) 4 mg disintegrat ing tablet 06-02 16:54: 47 Yes 4mg Take 4 mg by mouth every 8 (eight) hours as needed. [facility] busPIRone 15 mg tablet 06-02 16:54: 47 Yes 15mg Take 15 mg by mouth 3 (three) times daily. [facility] phenazopyri dine (PYRIDIUM) tablet 200 mg 06-02 04:15: 00 06-02 03:34 :00 No 200mg 200 mg, Oral, ONCE, 1 dose, Sun06/01/20 at 2315, Routine [facility] pantoprazol e 40 mg EC tablet 06-02 00:00: 00 07-03 04:59 :00 No [id number] 40mg Take 1 tablet by mouth daily for 30 days. [facility] proMETHazin e 25 mg tablet 06-02 00:00: 00 06-08 04:59 :00 No [id number] 25mg Take 1 tablet by mouth every 6 (six) hours as needed for Nausea and Vomiting (N/V) for up to 5 days. 1 or 2 tablets [facility] cefpodoxime proxetil (VANTIN ORAL) 06-01 18:00: 17 06-01 00:00 :00 No Take by mouth. [facility] proMETHazin e (PHENERGAN) tablet 25 mg 06-01 15:20: 12 Yes 25mg 25 mg, Oral, Q4HPRN, Starting Sun06/01/20 at 1020, Until Discontinu ed, Routine, Nausea and Vomiting (N/V) [facility] acetaminoph en-codeine (TYLENOL #3) 300-30 mg tablet 1 tablet 06-01 15:18: 42 06-01 19:01 :49 No 1{tbl} 1 tablet, Oral, Q4HPRN, Starting Sun06/01/20 at 1018, Until Sun06/01/20 at 1401, Routine, Pain (scale 4-6) [facility] pantoprazol e (PROTONIX) EC tablet 40 mg 06-01 14:30: 00 Yes 40mg 40 mg, Oral, DAILY, First dose on Sun06/01/20 at 0930, Until Discontinu ed, Routine [facility] azaTHIOprin e (IMURAN) tablet 150 mg 06-01 14:30: 00 Yes 150mg 150 mg, Oral, DAILY, First dose (after last modificati on) on Sun06/01/20 at 0930, Until Discontinu ed, Routine [facility] morpHINE injection 2 mg 06-01 08:26: 30 Yes 2mg 2 mg, Slow IV Push, Q4HPRN, Starting Sun06/01/20 at 0326, Until Discontinu ed, Routine, Pain (scale 7-10) [facility] morpHINE injection 2 mg 06-01 06:00: 00 06-01 05:01 :00 No 2mg 2 mg, Slow IV Push, ONCE, 1 dose, Sun06/01/20 at 0100, Routine [facility] amoxicillin -clavulanat e (AUGMENTIN) 875-125 mg per tablet 06-01 00:00: 00 06-09 04:59 :00 No [id number] 1{tbl} Take 1 tablet by mouth 2 (two) times daily for 7 days. [facility] proMETHazin e (PHENERGAN) 25 mg in NaCl 0.9% (NS) 50 mL IV piggyback 05-31 22:18: 42 06-01 15:20 :48 No 25mg 25 mg, IV Piggyback, Q6HPRN, Starting Sun05/31/20 at 1718, Until Sun06/01/20 at 1020, Routine, Nausea and Vomiting (N/V) [facility] acetaminoph en (TYLENOL) tablet 650 mg 05-31 15:33: 00 Yes 650mg 650 mg, Oral, Q6HPRN, Starting Sun05/31/20 at 1033, Until Discontinu ed, Routine, Temp > 38.5 C [facility] butalbital- acetaminoph en-caff (ESGIC) 50-325-40 mg tablet 1 tablet 05-31 15:27: 07 Yes 1{tbl} 1 tablet, Oral, Q6HPRN, Starting Sun05/31/20 at 1027, Until Discontinu ed, Routine, Pain (scale 1-3) [facility] losartan (COZAAR) tablet 50 mg 05-31 14:00: 00 Yes 50mg 50 mg, Oral, DAILY, First dose (after last modificati on) on Sun05/31/20 at 0900, Until Discontinu ed, Routine [facility] metoprolol succinate XL (TOPROL XL) tablet 25 mg 05-31 14:00: 00 Yes 25mg 25 mg, Oral, DAILY, First dose (after last modificati on) on Sun05/31/20 at 0900, Until Discontinu ed [facility] enoxaparin (LOVENOX) injection 40 mg 05-31 14:00: 00 Yes 40mg 40 mg, Subcutaneo us, DAILY, First dose on Sun05/31/20 at 0900, Until Discontinu ed, Routine [facility] azaTHIOprin e (IMURAN) tablet 50 mg 05-31 14:00: 00 06-01 14:19 :13 No 50mg 50 mg, Oral, DAILY, First dose on Sun05/31/20 at 0900, Until Discontinu ed, Routine [facility] gabapentin (NEURONTIN) 400 mg 05-31 13:00: 00 Yes 400mg 400 mg, Oral, TID, First dose on Sun05/31/20 at 0800, Until Discontinu ed, Routine [facility] dicyclomine (BENTYL) tablet 20 mg 05-31 13:00: 00 Yes 20mg 20 mg, Oral, TID, First dose on Sun05/31/20 at 0800, Until Discontinu ed, Routine [facility] busPIRone (BUSPAR) tablet 15 mg 05-31 13:00: 00 Yes 15mg 15 mg, Oral, TID, First dose on Sun05/31/20 at 0800, Until Discontinu ed, Routine [facility] temazepam (RESTORIL) capsule 15 mg 05-31 06:30: 00 05-31 05:28 :00 No 15mg 15 mg, Oral, ONCE, 1 dose, [facility] 05/31/20 at 0130, Routine [facility] proMETHazin e (PHENERGAN) tablet 25 mg 05-31 05:29: 16 05-31 22:06 :24 No 25mg 25 mg, Oral, Q6HPRN, Starting Sun05/31/20 at 0029, Until Sun05/31/20 at 1706, Routine, Nausea and Vomiting (N/V) [facility] ampicillin (POLYCILLIN -N) 2,000 mg in NaCl 0.9% (NS) 100 mL MINI-BAG 05-31 03:00: 00 Yes 2g 2,000 mg (2 g), IV Piggyback, Q6H ABX, First dose on [place] 05/30/20 at 2200, Until Discontinu ed, 100 mL
Reas on for Anti-Infec tive: Documented Infection< br>Documen karly Infection Site: Urine
D uration of Therapy: 10 days [facility] piperacilli n-tazobacta m (ZOSYN) 3.375 g in NaCl 0.9% (NS) 100 mL MINI-BAG 05-30 22:45: 00 05-30 22:40 :00 No 3.375g 3.375 g, IV Piggyback, ONCE, 1 dose, [place] 05/30/20 at 1745, 100 mL
Reas on for Anti-Infec tive: Documented Infection< br>Documen karly Infection Site: Urine
D uration of Therapy: Other (see Comments) [facility] FENTanyl PF (SUBLIMAZE (PF)) injection 75 mcg 05-30 22:45: 00 05-30 21:55 :00 No 75ug 75 mcg, Slow IV Push, ONCE, 1 dose, [place] 05/30/20 at 1745, STAT [facility] proMETHazin e (PHENERGAN) 25 mg in NaCl 0.9% (NS) 50 mL piggyback 05-30 22:45: 00 05-30 22:45 :00 No 25mg 25 mg, IV Piggyback, ONCE, 1 dose, [place] 05/30/20 at 1745, 50 mL [facility] NaCl 0.9% (NS) IV infusion 1,000 mL 05-30 22:30: 00 06-01 19:01 :49 No 1000mL at 100 mL/hr, IV Infusion, CONTINUOUS , Starting [place] 05/30/20 at 1730, Until Sun06/01/20 at 1401, Routine [facility] ondansetron (ZOFRAN (PF)) injection 4 mg 05-30 22:23: 13 Yes 4mg 4 mg, Slow IV Push, Q6HPRN, Starting [place] 05/30/20 at 1723, Until Discontinu ed, Routine, Nausea and Vomiting (N/V) [facility] morpHINE injection 4 mg 05-30 22:23: 07 05-31 22:22 :07 No 4mg 4 mg, Slow IV Push, Q4HPRN, Starting [place] 05/30/20 at 1723, Until Sun05/31/20 at 1722, Routine, Pain (scale 7-10) [facility] HYDROcodone -acetaminop hen (NORCO 5) 5-325 mg tablet 1 tablet 05-30 22:23: 02 06-01 15:19 :39 No 1{tbl} 1 tablet, Oral, Q6HPRN, Starting [place] 05/30/20 at 1723, Until Sun06/01/20 at 1019, Routine, Pain (scale 4-6) [facility] acetaminoph en (TYLENOL) tablet 650 mg 05-30 22:22: 55 05-31 15:33 :25 No 650mg 650 mg, Oral, Q6HPRN, Starting [place] 05/30/20 at 1722, Until Sun05/31/20 at 1033, Routine, Pain (scale 1-3), Temp > 38.5 C [facility] oxybutynin chloride (DITROPAN) tablet 5 mg 05-30 22:21: 36 Yes 5mg 5 mg, Oral, TIDPRN, Starting [place] 05/30/20 at 1721, Until Discontinu ed, Routine, Bladder spasms [facility] iohexol (OMNIPAQUE 350 BULK-100 mL) injection 100 mL 05-30 21:00: 00 05-30 20:40 :00 No [id number] 100mL 100 mL, Intravenou s, ONCE, 1 dose, [place] 05/30/20 at 1600, Routine [facility] FENTanyl PF (SUBLIMAZE (PF)) injection 50 mcg 05-30 21:00: 00 05-30 20:35 :00 No 50ug 50 mcg, Slow IV Push, ONCE, 1 dose, [place] 05/30/20 at 1600, Routine [facility] ondansetron (ZOFRAN (PF)) injection 4 mg 05-30 21:00: 00 05-30 20:22 :00 No 4mg 4 mg, Slow IV Push, ONCE, 1 dose, [place] 05/30/20 at 1600, GIGI [facility] proMETHazin e (PHENERGAN) 25 mg in NaCl 0.9% (NS) 50 mL piggyback 05-27 02:45: 00 05-27 01:47 :00 No 25mg 25 mg, IV Piggyback, ONCE, 1 dose, Sun05/26/20 at 2145, 50 mL [facility] butorphanol (STADOL) injection 2 mg 05-27 02:45: 00 05-27 01:33 :00 No 2mg 2 mg, IV Push, ONCE, 1 dose, Sun05/26/20 at 2145, Routine [facility] ONDANSETRON HCL (ZOFRAN ORAL) 05-27 01:43: 58 05-26 00:00 :00 No Take by mouth. [facility] dicyclomine 10 mg capsule 05-27 01:43: 58 05-26 00:00 :00 No 10mg Take 10 mg by mouth. [facility] butorphanol (STADOL) injection 1 mg 05-27 01:30: 00 05-27 00:38 :00 No 1mg 1 mg, IV Push, ONCE, 1 dose, 05/26/20 at 2030, Routine [facility] NaCl 0.9% (NS) bolus infusion 1,000 mL 05-26 23:30: 00 05-27 01:49 :00 No 1000mL at 999 mL/hr, 1,000 mL, IV Infusion, ONCE, 1 dose, 05/26/20 at 1830, GIGI [facility] oxybutynin chloride 5 mg tablet 05-26 00:00: 00 12-05 00:00 :00 No [id number] 5mg Take 1 tablet by mouth 3 (three) times daily as needed for Bladder spasms. [facility] proMETHazin e 25 mg tablet 05-26 00:00: 00 06-02 00:00 :00 No [id number] 25mg Take 1 tablet by mouth every 6 (six) hours as needed for Nausea and Vomiting (N/V). [facility] phenazopyri dine 200 mg tablet 05-26 00:00: 00 06-01 00:00 :00 No [id number] 200mg Take 1 tablet by mouth 3 (three) times daily. [facility] FENTanyl PF (SUBLIMAZE (PF)) injection 50 mcg 05-13 21:30: 00 05-13 20:45 :00 No 50ug 50 mcg, Slow IV Push, ONCE, 1 dose, [facility] 05/13/20 at 1630, Routine [facility] cefTRIAXone (ROCEPHIN) 1,000 mg in NaCl 0.9% (NS) 50 mL MINI-BAG 05-13 21:30: 00 05-13 21:22 :00 No 1000mg 1,000 mg, IV Piggyback, ONCE, 1 dose, [facility] 05/13/20 at 1630, 50 mL
Reas on for Anti-Infec tive: Empiric Therapy for Suspected Infection< br>Empiric Therapy Site: Urine
D uration of therapy: 72 hours [facility] proMETHazin e (PHENERGAN) 25 mg in NaCl 0.9% (NS) 50 mL piggyback 05-13 21:30: 00 05-13 20:47 :00 No 25mg 25 mg, IV Piggyback, ONCE, 1 dose, [facility] 05/13/20 at 1630, 50 mL [facility] metoclopram marilyn HCl (REGLAN) injection 10 mg 05-13 19:15: 00 05-13 19:04 :00 No 10mg 10 mg, Slow IV Push, ONCE, 1 dose, [facility] 05/13/20 at 1415, [facility] FENTanyl PF (SUBLIMAZE (PF)) injection 50 mcg 05-13 19:00: 00 05-13 18:57 :00 No 50ug 50 mcg, Slow IV Push, ONCE, 1 dose, [facility] 05/13/20 at 1400, Routine [facility] morpHINE injection 4 mg 05-13 17:45: 00 05-13 16:56 :00 No 4mg 4 mg, Slow IV Push, ONCE, 1 dose, [facility] 05/13/20 at 1245, STAT [facility] ondansetron (ZOFRAN (PF)) injection 4 mg 05-13 17:45: 00 05-13 16:55 :00 No 4mg 4 mg, Slow IV Push, ONCE, 1 dose, [facility] 05/13/20 at 1245, [facility] iohexol (OMNIPAQUE 350 BULK-150 mL) injection 120 mL 05-13 17:30: 00 05-13 17:22 :00 No [id number] 120mL 120 mL, Intravenou s, ONCE, 1 dose, [facility] 05/13/20 at 1230, Routine [facility] NaCl 0.9% (NS) bolus infusion 1,000 mL 05-13 16:45: 00 05-13 20:00 :00 No 1000mL at 999 mL/hr, 1,000 mL, IV Infusion, ONCE, 1 dose, [facility] 05/13/20 at 1145, GIGI [facility] proMETHazin e 25 mg tablet 05-13 00:00: 00 05-26 00:00 :00 No [id number] 25mg Take 1 tablet by mouth every 6 (six) hours as needed for Nausea and Vomiting (N/V). [facility] cefpodoxime 100 mg tablet 05-13 00:00: 05-21 04:59 :00 No [id number] 100mg Take 1 tablet by mouth 2 (two) times daily for 7 days. [facility] metoprolol succinate (TOPROL XL ORAL) 03-23 15:51: 34 Yes Take by mouth. [facility] gabapentin 400 mg capsule 03-23 00:00: 00 Yes [id number] 400mg Take 1 capsule by mouth 3 (three) times daily. [facility] gabapentin 300 mg capsule 03-18 00:00: 03-23 00:00 :00 No 300mg Take 1 capsule by mouth 3 (three) times daily. [facility] FENTanyl PF (SUBLIMAZE (PF)) injection 50 mcg 2019-02 20:00: 00 12-08 07:59 :00 No 50ug 50 mcg, Slow IV Push, ONCE, 1 dose, 12/08/19 at 1500, STAT [facility] proMETHazin e (PHENERGAN) 12.5 mg in NaCl 0.9% (NS) 50 mL piggyback 2019-02 18:45: 00 12-07 17:52 :00 No 12.5mg 12.5 mg, IV Piggyback, ONCE, 1 dose, 12/08/19 at 1345, 50 mL [facility] metoclopram marilyn HCl (REGLAN) injection 10 mg 2019-02 17:45: 00 12-07 17:07 :00 No 10mg 10 mg, Slow IV Push, ONCE, 1 dose, 12/08/19 at 1245, GIGI [facility] FENTanyl PF (SUBLIMAZE (PF)) injection 50 mcg 2019-02 17:45: 00 12-07 17:07 :00 No 50ug 50 mcg, Slow IV Push, ONCE, 1 dose, 12/08/19 at 1245, STAT [facility] proMETHazin e 25 mg tablet 2019-02 00:00: 00 05-13 00:00 :00 No [id number] 25mg Take 1 tablet by mouth every 6 (six) hours as needed for Nausea and Vomiting (N/V). [facility] GABAPENTIN 300 mg capsule 2019-02 00:00: 00 03-18 00:00 :00 No TAKE 1 CAPSULE BY MOUTH THREE TIMES A DAY [facility] busPIRone 5 mg tablet 2019-02 0 00:00: 00 05-30 00:00 :00 No [facility] losartan 50 mg tablet 11-02 00:00: 00 Yes 50mg Take 50 mg by mouth daily. [facility] losartan 50 mg tablet 11-02 00:00: 00 12-12 00:00 :00 No 100mg Take 100 mg by mouth daily. [facility] GABAPENTIN 300 mg capsule 8-12 00:00: 00 12-07 00:00 :00 No TAKE 1 CAPSULE BY MOUTH THREE TIMES A DAY [facility] GABAPENTIN 300 mg capsule 6-25 00:00: 00 Yes TAKE 1 CAPSULE BY MOUTH THREE TIMES A DAY [facility] gabapentin 300 mg capsule 4-09 00:00: 00 Yes 300mg Take 1 capsule by mouth 3 (three) times daily. [facility] gabapentin 300 mg capsule 3-13 00:00: 00 Yes 300mg Take 1 capsule by mouth 3 (three) times daily. [facility] erenumab-ao oe (AIMOVIG AUTOINJECTO R) 140 mg/mL AtIn 3-13 00:00: 00 10-21 00:00 :00 No 140mg inject 140 mg under the skin once every month. [facility] divalproex 250 mg EC tablet 2020-0 3-05 00:00: 00 Yes [id number] 250mg Take 1 tablet by mouth every 12 (twelve) hours. [facility] divalproex 250 mg EC tablet 04-11 00:00: 00 04-16 00:00 :00 No [id number] 250mg Take 1 tablet by mouth every 12 (twelve) hours. [facility] pregabalin (LYRICA) 50 mg capsule 03-28 16:39: 16 03-28 00:00 :00 No 75mg Take 75 mg by mouth 2 (two) times daily. [facility] divalproex 125 mg EC tablet 03-28 00:00: 04-11 00:00 :00 No [id number] 125mg Take 1 tablet by mouth every 12 (twelve) hours. [facility] NaCl 0.9% (NS) SolP 250 mL with inFLIXimab 100 mg SolR 2018-02 15:26: 39 Yes Infuse once now. [facility] dicyclomine 10 mg capsule 2018-02 15:24: 12 Yes 10mg Take 10 mg by mouth. [facility] ONDANSETRON HCL (ZOFRAN ORAL) 2018-02 15:22: 05 Yes Take by mouth. [facility] azaTHIOprin e 50 mg tablet 2018-02 00:00: 00 12-05 00:00 :00 No 150mg Take 150 mg by mouth daily. [facility] cyclobenzap rine 10 mg tablet 2018-02 00:00: 00 03-28 00:00 :00 No [id number] 10mg Take 1 tablet by mouth 3 (three) times daily. [facility] pantoprazol e (PROTONIX) 40 MG tablet 10-26 12:13: 12 Yes 40mg QD Take 40 mg by mouth daily. [facility] mesalamine (PENTASA) 500 MG CR capsule 10-26 12:13: 12 Yes 1000mg Q.5D Take 1,000 mg by mouth 2 (two) times daily. [facility] azaTHIOprin e (IMURAN) 50 mg tablet 10-26 12:13: 12 Yes 150mg QD Take 150 mg by mouth daily. [facility] dicyclomine (BENTYL) 10 MG capsule 10-26 12:13: 12 Yes 10mg [id number] 3D Take 10 mg by mouth 3 (three) times daily. [facility] ondansetron (ZOFRAN-ODT ) 4 MG disintegrat ing tablet 10-26 12:13: 12 Yes 4mg Take 4 mg by mouth every 8 (eight) hours as needed for Nausea. [facility] promethazin e (PHENERGAN) 25 MG tablet 10-26 12:13: 12 Yes 25mg Take 25 mg by mouth every 6 (six) hours as needed for Nausea. [facility] HYDROcodone -acetaminop hen (NORCO 7.5-325) 7.5-325 mg per tablet 10-26 12:13: 12 Yes 1{tbl} Q.5D Take 1 tablet by mouth 2 (two) times daily. [facility] pregabalin (LYRICA) 300 MG capsule 10-26 12:13: 12 Yes 300mg QD Take 300 mg by mouth nightly. [facility] pregabalin (LYRICA) 75 MG capsule 10-26 12:13: 12 Yes 75mg Q.5D Take 75 mg by mouth 2 (two) times daily. [facility] buprenorphi ne HCl (BELBUCA) 150 mcg Film 10-26 12:13: 12 [address] 150 mcg inside cheek 2 (two) times daily. [facility] lidocaine (LIDODERM) 5 % patch 10-26 00:00: 00 Yes 2{patch } Q24H Place 2 patches onto the skin daily Remove & Discard patch within 12 hours. May cut if necessary. [facility] LORazepam (ATIVAN) 0.5 MG tablet 10-26 00:00: 00 Yes .5mg Take 1 tablet (0.5 mg total) by mouth every night as needed for Anxiety. Max Daily Amount: 0.5 mg [facility] Bactrim DS Bactrim DS 08-24 00:00: 00 09-07 00:00 :00 No Levy Hernandez 1 tablet [facility] Pyridium Pyridium 08-24 00:00: 00 08-26 00:00 :00 No Levy Hernandez 1 tablet after meals [facility] hydrOXYzine (ATARAX) 25 mg tablet 09-01 00:00: 00 03-28 00:00 :00 No TAKE 1 TABLET BY MOUTH EVERY 8 HOURS NEEDED FOR ANXIETY [facility] sodium,pota ssium,mag sulfates (SUPREP BOWEL PREP KIT) 17.5-3.13-1 .6 gram SolR 07-28 00:00: 00 05-30 00:00 :00 No [id number] Please see instructio ns provided. [facility] buprenorphi ne (BUTRANS) 15 mcg/hour PTWK 07-08 00:00: 00 03-28 00:00 :00 No 15ug Apply 15 mcg to skin every 24 (twenty-fo ur) hours. [facility] ondansetron (ZOFRAN) 4 mg tablet 06-29 00:00: 00 05-26 00:00 :00 No [facility] mesalamine CR (PENTASA) 500 mg CR capsule 06-28 00:00: 00 05-30 00:00 :00 No 1000mg Take 2 capsules by mouth 4 (four) times daily. [facility] tamsulosin (FLOMAX) 0.4 mg 24 hr capsule 2014-02 00:00: 05-13 00:00 :00 No .4mg Take 1 Cap by mouth daily. [facility] Pentasa 500 MG Pentasa 500 MG No 2{capsu les} QID Pentasa 500 MG Oxybutynin Chloride 5 MG Oxybutynin Chloride 5 MG No 1{table t} BID Oxybutynin Chloride 5 MG Amitriptyli ne HCl 50 MG Amitriptyli ne HCl 50 MG No 1{table t} QD Amitriptyl ine HCl 50 MG Toprol XL 25 MG Toprol XL 25 MG No 1{table t} QD Toprol XL 25 MG Ibuprofen 600 MG Ibuprofen 600 MG No TID Ibuprofen 600 MG Gabapentin 400 MG Gabapentin 400 MG No 1{capsu le} QD Gabapentin 400 MG Pentasa 500 MG Pentasa 500 MG No 2{capsu les} QID Pentasa 500 MG busPIRone HCl 15 MG busPIRone HCl 15 MG No 1{table t} BID busPIRone HCl 15 MG Bentyl 20 MG Bentyl 20 MG No 1{table t} TID Bentyl 20 MG Losartan Potassium 50 MG Losartan Potassium 50 MG No 1{table t} QD Losartan Potassium 50 MG Amitriptyli ne HCl 50 MG Amitriptyli ne HCl 50 MG No 1{table t} QD Amitriptyl ine HCl 50 MG Xarelto 20 MG Xarelto 20 MG No 1{table t_with_ food} QD Xarelto 20 MG oxyBUTYnin Chloride 5 MG oxyBUTYnin Chloride 5 MG No 1{table t} BID oxyBUTYnin Chloride 5 MG Lyrica 75 MG Lyrica 75 MG No Lyrica 75 MG Toprol XL 25 MG Toprol XL 25 MG No 1{table t} QD Toprol XL 25 MG Ibuprofen 600 MG Ibuprofen 600 MG No TID Ibuprofen 600 MG Gabapentin 400 MG Gabapentin 400 MG No 1{capsu le} QD Gabapentin 400 MG Pentasa 500 MG Pentasa 500 MG No 2{capsu les} QID Pentasa 500 MG busPIRone HCl 15 MG busPIRone HCl 15 MG No 1{table t} BID busPIRone HCl 15 MG Lomotil Lomotil No Lomotil Losartan Potassium 50 MG Losartan Potassium 50 MG No 1{table t} QD Losartan Potassium 50 MG Amitriptyli ne HCl 50 MG Amitriptyli ne HCl 50 MG No 1{table t} QD Amitriptyl ine HCl 50 MG Xarelto 20 MG Xarelto 20 MG No 1{table t_with_ food} QD Xarelto 20 MG oxyBUTYnin Chloride 5 MG oxyBUTYnin Chloride 5 MG No 1{table t} BID oxyBUTYnin Chloride 5 MG Aimovig 140 MG/ML Aimovig 140 MG/ML No Aimovig 140 MG/ML Lyrica 75 MG Lyrica 75 MG No Lyrica 75 MG Toprol XL 25 MG Toprol XL 25 MG No 1{table t} QD Toprol XL 25 MG Ibuprofen 600 MG Ibuprofen 600 MG No TID Ibuprofen 600 MG Gabapentin 400 MG Gabapentin 400 MG No 1{capsu le} QD Gabapentin 400 MG LORazepam 0.5 MG LORazepam 0.5 MG No 1{table t_at_be dtime_a s_neede d} QD LORazepam 0.5 MG Gabapentin 800 MG Gabapentin 800 MG No Gabapentin 800 MG HYDROcodone -Acetaminop hen 10-325 MG HYDROcodone -Acetaminop hen 10-325 MG No HYDROcodon e-Acetamin ophen 10-325 MG tiZANidine HCl 4 MG tiZANidine HCl 4 MG No tiZANidine HCl 4 MG busPIRone HCl 15 MG busPIRone HCl 15 MG No 1{table t} BID busPIRone HCl 15 MG Imuran 50 MG Imuran 50 MG No Imuran 50 MG Zofran 4 MG Zofran 4 MG No 2{table ts} BID Zofran 4 MG Xarelto 20 MG Xarelto 20 MG No 1{table t_with_ food} QD Xarelto 20 MG Bentyl 20 MG Bentyl 20 MG No 1{table t} TID Bentyl 20 MG Phenergan 25 MG/ML Phenergan 25 MG/ML No Phenergan 25 MG/ML Remicade 100 MG Remicade 100 MG No Remicade 100 MG Lomotil 2.5-0.025 MG Lomotil 2.5-0.025 MG No 1{table t_as_ne eded} QID Lomotil 2.5-0.025 MG Methocarbam ol 750 MG Methocarbam ol 750 MG No Methocarba mol 750 MG Acetaminoph en-Codeine 300-60 MG Acetaminoph en-Codeine 300-60 MG No Acetaminop hen-Codein e 300-60 MG Restasis 0.05 % Restasis 0.05 % No 1{drop_ into_af fected_ eye} BID Restasis 0.05 % Antelope Antelope Yes Levy Hernandez 1 tablet as needed [facility] Amitriptyli ne HCl Amitriptyli ne HCl Yes Levy Hernandez 1 tablet [facility] Zofran Zofran Yes Levy Hernandez 2 tablets [facility] Pentasa Pentasa Yes Levy Hernandez 2 capsules [facility] Lyrica Lyrica Yes Levy Hernandez 1 capsule 1 to 3 hours before bedtime in the evening [facility] Lyrica 75 MG Lyrica 75 MG No Lyrica 75 MG Zofran 4 MG Zofran 4 MG No 2{table ts} BID Zofran 4 MG Losartan Potassium 50 MG Losartan Potassium 50 MG No 1{table t} QD Losartan Potassium 50 MG busPIRone HCl 15 MG busPIRone HCl 15 MG No 1{table t} BID busPIRone HCl 15 MG Aimovig 140 MG/ML Aimovig 140 MG/ML No Aimovig 140 MG/ML Immunizations Ordered Immunization Name Filled Immunization Name Date Status Comments Source [facility] (hep a/hep b) 2015-07-29 00:00:00 Completed [facility] (hep a/hep b) 2015-07-29 00:00:00 Completed [facility] (hep a/hep b) 2015-07-29 00:00:00 Completed [facility] (hep a/hep b) 2015-07-29 00:00:00 Completed [facility] (hep a/hep b) 2015-07-29 00:00:00 Completed [facility] (hep a/hep b) 2015-07-29 00:00:00 Completed [facility] (hep a/hep b) 2015-07-29 00:00:00 Completed [facility] (hep a/hep b) 2015-07-29 00:00:00 Completed [facility] (hep a/hep b) 2015-07-29 00:00:00 Completed [facility] (hep a/hep b) 2015-07-29 00:00:00 Completed [facility]rix (hep a/hep b) 2015-07-29 00:00:00 Completed [facility] (hep a/hep b) 2015-07-29 00:00:00 Completed [facility] (hep a/hep b) 2015-07-29 00:00:00 Completed [facility]rix (hep a/hep b) 2015-07-29 00:00:00 Completed [facility] Twinrix (hep a/hep b) 2015-07-29 00:00:00 Completed [facility]rix (hep a/hep b) 2015-07-29 00:00:00 Completed [facility] Twinrix (hep a/hep b) 2015-07-29 00:00:00 Completed [facility] Twinrix (hep a/hep b) 2015-07-29 00:00:00 Completed [facility] Twinrix (hep a/hep b) 2015-07-29 00:00:00 Completed [facility] (hep a/hep b) 2015-07-29 00:00:00 Completed [facility]rix (hep a/hep b) 2015-07-29 00:00:00 Completed [facility] (hep a/hep b) 2015-07-29 00:00:00 Completed [facility] (hep a/hep b) 2015-07-29 00:00:00 Completed [facility]rix (hep a/hep b) 2015-07-29 00:00:00 Completed [facility]rix (hep a/hep b) 2015-07-29 00:00:00 Completed [facility]rix (hep a/hep b) 2015-07-29 00:00:00 Completed [facility]rix (hep a/hep b) 2015-07-29 00:00:00 Completed [facility]rix (hep a/hep b) 2015-07-29 00:00:00 Completed [facility]rix (hep a/hep b) 2015-07-29 00:00:00 Completed [facility]rix (hep a/hep b) 2015-07-29 00:00:00 Completed [facility]rix (hep a/hep b) 2015-07-29 00:00:00 Completed [facility] Twinrix (hep a/hep b) 2015-07-29 00:00:00 Completed [facility] Twinrix (hep a/hep b) 2015-07-29 00:00:00 Completed [facility] Twinrix (hep a/hep b) 2015-07-29 00:00:00 Completed [facility] Twinrix (hep a/hep b) 2015-07-29 00:00:00 Completed [facility] Twinrix (hep a/hep b) 2015-07-29 00:00:00 Completed [facility] Twinrix (hep a/hep b) 2015-07-29 00:00:00 Completed [facility] Twinrix (hep a/hep b) 2015-07-29 00:00:00 Completed [facility] Twinrix (hep a/hep b) 2015-07-29 00:00:00 Completed [facility] Twinrix (hep a/hep b) 2015-07-29 00:00:00 Completed [facility] Twinrix (hep a/hep b) 2015-07-29 00:00:00 Completed [facility] Twinrix (hep a/hep b) 2015-07-29 00:00:00 Completed [facility] Twinrix (hep a/hep b) 2015-07-29 00:00:00 Completed [facility] Twinrix (hep a/hep b) 2015-07-29 00:00:00 Completed [facility] Twinrix (hep a/hep b) 2015-07-29 00:00:00 Completed [facility] Twinrix (hep a/hep b) 2015-07-29 00:00:00 Completed [facility] Twinrix (hep a/hep b) 2015-07-29 00:00:00 Completed [facility] Twinrix (hep a/hep b) 2015-07-29 00:00:00 Completed [facility] Twinrix (hep a/hep b) 2015-07-29 00:00:00 Completed [facility] Twinrix (hep a/hep b) 2015-07-29 00:00:00 Completed [facility] Twinrix (hep a/hep b) 2015-07-29 00:00:00 Completed [facility] Twinrix (hep a/hep b) 2015-07-29 00:00:00 Completed [facility] Twinrix (hep a/hep b) 2015-07-29 00:00:00 Completed [facility] Twinrix (hep a/hep b) 2015-07-29 00:00:00 Completed [facility] Twinrix (hep a/hep b) 2015-07-29 00:00:00 Completed [facility] Twinrix (hep a/hep b) 2015-07-29 00:00:00 Completed [facility] Twinrix (hep a/hep b) 2015-07-29 00:00:00 Completed [facility]rix (hep a/hep b) 2015-07-29 00:00:00 Completed [facility]rix (hep a/hep b) 2015-07-29 00:00:00 Completed [facility] (hep a/hep b) 2015-07-29 00:00:00 Completed [facility] Influenza Virus Vaccine Quad IM 3+ YRS 2015-06-29 00:00:00 Completed [facility] Influenza Virus Vaccine Quad IM 3+ YRS 2015-06-29 00:00:00 Completed [facility] Influenza Virus Vaccine Quad IM 3+ YRS 2015-06-29 00:00:00 Completed [facility] Influenza Virus Vaccine Quad IM 3+ YRS 2015-06-29 00:00:00 Completed [facility] Influenza Virus Vaccine Quad IM 3+ YRS 2015-06-29 00:00:00 Completed [facility] Influenza Virus Vaccine Quad IM 3+ YRS 2015-06-29 00:00:00 Completed [facility] Influenza Virus Vaccine Quad IM 3+ YRS 2015-06-29 00:00:00 Completed [facility] Influenza Virus Vaccine Quad IM 3+ YRS 2015-06-29 00:00:00 Completed [facility] Influenza Virus Vaccine Quad IM 3+ YRS 2015-06-29 00:00:00 Completed [facility] Influenza Virus Vaccine Quad IM 3+ YRS 2015-06-29 00:00:00 Completed [facility] Influenza Virus Vaccine Quad IM 3+ YRS 2015-06-29 00:00:00 Completed [facility] Influenza Virus Vaccine Quad IM 3+ YRS 2015-06-29 00:00:00 Completed [facility] Influenza Virus Vaccine Quad IM 3+ YRS 2015-06-29 00:00:00 Completed [facility] Influenza Virus Vaccine Quad IM 3+ YRS 2015-06-29 00:00:00 Completed [facility] Influenza Virus Vaccine Quad IM 3+ YRS 2015-06-29 00:00:00 Completed [facility] Influenza Virus Vaccine Quad IM 3+ YRS 2015-06-29 00:00:00 Completed [facility] Influenza Virus Vaccine Quad IM 3+ YRS 2015-06-29 00:00:00 Completed [facility] Influenza Virus Vaccine Quad IM 3+ YRS 2015-06-29 00:00:00 Completed [facility] Influenza Virus Vaccine Quad IM 3+ YRS 2015-06-29 00:00:00 Completed [facility] Influenza Virus Vaccine Quad IM 3+ YRS 2015-06-29 00:00:00 Completed [facility] Influenza Virus Vaccine Quad IM 3+ YRS 2015-06-29 00:00:00 Completed [facility] Influenza Virus Vaccine Quad IM 3+ YRS 2015-06-29 00:00:00 Completed [facility] Influenza Virus Vaccine Quad IM 3+ YRS 2015-06-29 00:00:00 Completed [facility] Influenza Virus Vaccine Quad IM 3+ YRS 2015-06-29 00:00:00 Completed [facility] Influenza Virus Vaccine Quad IM 3+ YRS 2015-06-29 00:00:00 Completed [facility] Influenza Virus Vaccine Quad IM 3+ YRS 2015-06-29 00:00:00 Completed [facility] Influenza Virus Vaccine Quad IM 3+ YRS 2015-06-29 00:00:00 Completed [facility] Influenza Virus Vaccine Quad IM 3+ YRS 2015-06-29 00:00:00 Completed [facility] Influenza Virus Vaccine Quad IM 3+ YRS 2015-06-29 00:00:[address] [facility] Influenza Virus Vaccine Quad IM 3+ YRS 2015-06-29 00:00:00 Completed [facility] Influenza Virus Vaccine Quad IM 3+ YRS 2015-06-29 00:00:00 Completed [facility] Influenza Virus Vaccine Quad IM 3+ YRS 2015-06-29 00:00:00 Completed [facility] Influenza Virus Vaccine Quad IM 3+ YRS 2015-06-29 00:00:00 Completed [facility] Influenza Virus Vaccine Quad IM 3+ YRS 2015-06-29 00:00:[address] [facility] Influenza Virus Vaccine Quad IM 3+ YRS 2015-06-29 00:00:00 Completed [facility] Influenza Virus Vaccine Quad IM 3+ YRS 2015-06-29 00:00:00 Completed [facility] Influenza Virus Vaccine Quad IM 3+ YRS 2015-06-29 00:00:00 Completed [facility] Influenza Virus Vaccine Quad IM 3+ YRS 2015-06-29 00:00:00 Completed [facility] Influenza Virus Vaccine Quad IM 3+ YRS 2015-06-29 00:00:00 Completed [facility] Influenza Virus Vaccine Quad IM 3+ YRS 2015-06-29 00:00:00 Completed [facility] Influenza Virus Vaccine Quad IM 3+ YRS 2015-06-29 00:00:00 Completed [facility] Influenza Virus Vaccine Quad IM 3+ YRS 2015-06-29 00:00:00 Completed [facility] Influenza Virus Vaccine Quad IM 3+ YRS 2015-06-29 00:00:00 Completed [facility] Influenza Virus Vaccine Quad IM 3+ YRS 2015-06-29 00:00:00 Completed [facility] Influenza Virus Vaccine Quad IM 3+ YRS 2015-06-29 00:00:00 Completed [facility] Influenza Virus Vaccine Quad IM 3+ YRS 2015-06-29 00:00:00 Completed [facility] Influenza Virus Vaccine Quad IM 3+ YRS 2015-06-29 00:00:00 Completed [facility] Influenza Virus Vaccine Quad IM 3+ YRS 2015-06-29 00:00:00 Completed [facility] Influenza Virus Vaccine Quad IM 3+ YRS 2015-06-29 00:00:[address] [facility] Influenza Virus Vaccine Quad IM 3+ YRS 2015-06-29 00:00:00 Completed [facility] Influenza Virus Vaccine Quad IM 3+ YRS 2015-06-29 00:00:00 Completed [facility] Influenza Virus Vaccine Quad IM 3+ YRS 2015-06-29 00:00:00 Completed [facility] Influenza Virus Vaccine Quad IM 3+ YRS 2015-06-29 00:00:00 Completed [facility] Influenza Virus Vaccine Quad IM 3+ YRS 2015-06-29 00:00:00 Completed [facility] Influenza Virus Vaccine Quad IM 3+ YRS 2015-06-29 00:00:00 Completed [facility] Influenza Virus Vaccine Quad IM 3+ YRS 2015-06-29 00:00:00 Completed [facility] Influenza Virus Vaccine Quad IM 3+ YRS 2015-06-29 00:00:00 Completed [facility] Influenza Virus Vaccine Quad IM 3+ YRS 2015-06-29 00:00:00 Completed [facility] Influenza Virus Vaccine Quad IM 3+ YRS 2015-06-29 00:00:00 Completed [facility] Influenza Virus Vaccine Quad IM 3+ YRS 2015-06-29 00:00:00 Completed [facility] Twinrix (hep a/hep b) 2015-06-28 00:00:00 Completed [facility] Twinrix (hep a/hep b) 2015-06-28 00:00:00 Completed [facility] Twinrix (hep a/hep b) 2015-06-28 00:00:00 Completed [facility] Twinrix (hep a/hep b) 2015-06-28 00:00:00 Completed [facility] Twinrix (hep a/hep b) 2015-06-28 00:00:00 Completed [facility] Twinrix (hep a/hep b) 2015-06-28 00:00:00 Completed [facility] Twinrix (hep a/hep b) 2015-06-28 00:00:00 Completed [facility] Twinrix (hep a/hep b) 2015-06-28 00:00:00 Completed [facility] Twinrix (hep a/hep b) 2015-06-28 00:00:00 Completed [facility] Twinrix (hep a/hep b) 2015-06-28 00:00:00 Completed [facility] Twinrix (hep a/hep b) 2015-06-28 00:00:00 Completed [facility] Twinrix (hep a/hep b) 2015-06-28 00:00:00 Completed [facility]rix (hep a/hep b) 2015-06-28 00:00:00 Completed [facility]rix (hep a/hep b) 2015-06-28 00:00:00 Completed [facility] (hep a/hep b) 2015-06-28 00:00:00 Completed [facility] (hep a/hep b) 2015-06-28 00:00:00 Completed [facility] (hep a/hep b) 2015-06-28 00:00:00 Completed [facility] (hep a/hep b) 2015-06-28 00:00:00 Completed [facility] (hep a/hep b) 2015-06-28 00:00:00 Completed [facility] (hep a/hep b) 2015-06-28 00:00:00 Completed [facility] (hep a/hep b) 2015-06-28 00:00:00 Completed [facility] (hep a/hep b) 2015-06-28 00:00:00 Completed [facility] (hep a/hep b) 2015-06-28 00:00:00 Completed [facility] (hep a/hep b) 2015-06-28 00:00:00 Completed [facility] (hep a/hep b) 2015-06-28 00:00:00 Completed [facility] (hep a/hep b) 2015-06-28 00:00:00 Completed [facility] (hep a/hep b) 2015-06-28 00:00:00 Completed [facility] (hep a/hep b) 2015-06-28 00:00:00 Completed [facility] (hep a/hep b) 2015-06-28 00:00:00 Completed [facility] (hep a/hep b) 2015-06-28 00:00:00 Completed [facility] (hep a/hep b) 2015-06-28 00:00:00 Completed [facility] (hep a/hep b) 2015-06-28 00:00:00 Completed [facility] (hep a/hep b) 2015-06-28 00:00:00 Completed [facility] (hep a/hep b) 2015-06-28 00:00:00 Completed [facility] (hep a/hep b) 2015-06-28 00:00:00 Completed [facility] (hep a/hep b) 2015-06-28 00:00:00 Completed [facility] (hep a/hep b) 2015-06-28 00:00:00 Completed [facility] (hep a/hep b) 2015-06-28 00:00:00 Completed [facility] (hep a/hep b) 2015-06-28 00:00:00 Completed [facility] (hep a/hep b) 2015-06-28 00:00:00 Completed [facility] (hep a/hep b) 2015-06-28 00:00:00 Completed [facility] (hep a/hep b) 2015-06-28 00:00:00 Completed [facility] (hep a/hep b) 2015-06-28 00:00:00 Completed [facility] (hep a/hep b) 2015-06-28 00:00:00 Completed [facility] (hep a/hep b) 2015-06-28 00:00:00 Completed [facility] (hep a/hep b) 2015-06-28 00:00:00 Completed [facility] (hep a/hep b) 2015-06-28 00:00:00 Completed [facility] (hep a/hep b) 2015-06-28 00:00:00 Completed [facility] (hep a/hep b) 2015-06-28 00:00:00 Completed [facility] (hep a/hep b) 2015-06-28 00:00:00 Completed [facility] (hep a/hep b) 2015-06-28 00:00:00 Completed [facility] (hep a/hep b) 2015-06-28 00:00:00 Completed [facility] (hep a/hep b) 2015-06-28 00:00:00 Completed [facility] (hep a/hep b) 2015-06-28 00:00:00 Completed [facility] (hep a/hep b) 2015-06-28 00:00:00 Completed [facility] (hep a/hep b) 2015-06-28 00:00:00 Completed [facility] (hep a/hep b) 2015-06-28 00:00:00 Completed [facility] (hep a/hep b) 2015-06-28 00:00:00 Completed [facility] (hep a/hep b) 2015-06-28 00:00:00 Completed [facility] (hep a/hep b) 2015-06-28 00:00:00 Completed [facility] (hep a/hep b) Unknown Completed [facility] Influenza Virus Vaccine Quad IM 3+ YRS Unknown Completed [facility] (hep a/hep b) Unknown Completed [facility] Influenza Virus Vaccine Quad IM 3+ YRS Unknown Completed [facility] (hep a/hep b) Unknown Completed [facility] Influenza Virus Vaccine Quad IM 3+ YRS Unknown Completed [facility] (hep a/hep b) Unknown Completed [facility] Influenza Virus Vaccine Quad IM 3+ YRS Unknown Completed [facility] (hep a/hep b) Unknown Completed [facility] Influenza Virus Vaccine Quad IM 3+ YRS Unknown Completed [facility] (hep a/hep b) Unknown Completed [facility] Influenza Virus Vaccine Quad IM 3+ YRS Unknown Completed [facility] (hep a/hep b) Unknown Completed [facility] Influenza Virus Vaccine Quad IM 3+ YRS Unknown Completed [facility] (hep a/hep b) Unknown Completed [facility] Influenza Virus Vaccine Quad IM 3+ YRS Unknown Completed [facility] (hep a/hep b) Unknown Completed [facility] Influenza Virus Vaccine Quad IM 3+ YRS Unknown Completed [facility] Vital Signs Vital Name Observation Time Observation Value Comments S anderson height 2023-06-21 09:30:00 63 [in_i] Commo n [facility] weight 2023-06-21 09:30:00 175 [lb_av] Comm on [facility] temperature 2023-06-21 09:30:00 97.6 [degF] Com mon [facility] bmi 2023-06-21 09:30:00 31 kg/m2 Commo n [facility] blood pressure systolic 2023-06-21 09:30:00 124 mm[Hg] [facility] blood pressure diastolic 2023-06-21 09:30:00 75 mm[Hg] [facility] height 2023-06-07 10:00:00 63 [in_i] Commo n [facility] weight 2023-06-07 10:00:00 175 [lb_av] Comm on [facility] bmi 2023-06-07 10:00:00 31 kg/m2 Commo n [facility] blood pressure systolic 2023-06-07 10:00:00 126 mm[Hg] [facility] blood pressure diastolic 2023-06-07 10:00:00 76 mm[Hg] [facility] Systolic blood pressure 2023-03-07 16:59:00 113 mm[Hg] [facility] Diastolic blood pressure 2023-03-07 16:59:00 70 mm[Hg] [facility] Heart rate 2023-03-07 16:59:00 72 /min [facility] Body temperature 2023-03-07 16:59:00 36.61 Briseida [facility] Respiratory rate 2023-03-07 16:59:00 18 /min [facility] Oxygen saturation in Arterial blood by Pulse oximetry 2023-03-07 16:59:00 96 /min [facility] Body height 2023-03-06 04:52:00 170.2 cm [facility] Body weight 2023-03-06 04:52:00 72.576 kg [facility] BMI 2023-03-06 04:52:00 25.06 kg/m2 [facility] height 2022-11-23 09:00:00 63 [in_i] Commo n [facility] weight 2022-11-23 09:00:00 175 [lb_av] Comm on [facility] temperature 2022-11-23 09:00:00 98.5 [degF] Com [facility] bmi 2022-11-23 09:00:00 31 kg/m2 Commo n [facility] blood pressure systolic 2022-11-23 09:00:00 116 mm[Hg] [facility] blood pressure diastolic 2022-11-23 09:00:00 68 mm[Hg] [facility] height 2022-10-24 09:00:00 63 [in_i] Commo n [facility] weight 2022-10-24 09:00:00 175 [lb_av] Comm on [facility] temperature 2022-10-24 09:00:00 97.9 [degF] Com [facility] bmi 2022-10-24 09:00:00 31 kg/m2 Commo n [facility] blood pressure systolic 2022-10-24 09:00:00 120 mm[Hg] [facility] blood pressure diastolic 2022-10-24 09:00:00 72 mm[Hg] [facility] Systolic blood pressure 2022-05-28 03:15:00 97 mm[Hg] [facility] Diastolic blood pressure 2022-05-28 03:15:00 75 mm[Hg] [facility] Heart rate 2022-05-28 03:15:00 82 /min [facility] Respiratory rate 2022-05-28 03:15:00 16 /min [facility] Oxygen saturation in Arterial blood by Pulse oximetry 2022-05-28 03:15:00 98 /min [facility] Body temperature 2022-05-28 00:28:00 36.78 Briseida [facility] Body height 2022-05-28 00:28:00 170.2 cm Univ [facility] Body weight 2022-05-28 00:28:00 72.576 kg [facility] BMI 2022-05-28 00:28:00 25.06 kg/m2 Univ [facility] Systolic blood pressure 2022-02-12 18:53:00 114 mm[Hg] [facility] Diastolic blood pressure 2022-02-12 18:53:00 78 mm[Hg] [facility] Heart rate 2022-02-12 18:48:00 89 /min [facility] Body temperature 2022-02-12 18:48:00 36.67 Briseida [facility] Respiratory rate 2022-02-12 18:48:00 18 /min [facility] Body height 2022-02-12 18:48:00 170.2 cm Univ [facility] Body weight 2022-02-12 18:48:00 72.576 kg [facility] BMI 2022-02-12 18:48:00 25.06 kg/m2 [facility] Oxygen saturation in Arterial blood by Pulse oximetry 2022-02-12 18:48:00 96 /min [facility] Systolic blood pressure 2021-11-05 23:35:00 158 mm[Hg] [facility] Diastolic blood pressure 2021-11-05 23:35:00 96 mm[Hg] [facility] Heart rate 2021-11-05 23:35:00 72 /min [facility] Body temperature 2021-11-05 23:35:00 36.67 Briseida [facility] Respiratory rate 2021-11-05 23:35:00 12 /min [facility] Oxygen saturation in Arterial blood by Pulse oximetry 2021-11-05 23:35:00 100 /min [facility] Body height 2021-11-05 18:55:00 170.2 cm Univ [facility] Body weight 2021-11-05 18:55:00 72.576 kg Univ [facility] BMI 2021-11-05 18:55:00 25.06 kg/m2 Univ [facility] Systolic blood pressure 2021-11-05 18:38:00 85 mm[Hg] [facility] Diastolic blood pressure 2021-11-05 18:38:00 64 mm[Hg] [facility] Heart rate 2021-11-05 18:03:00 100 /min [facility] Body temperature 2021-11-05 18:03:00 36.78 Briseida [facility] Respiratory rate 2021-11-05 18:03:00 20 /min [facility] Body height 2021-11-05 18:03:00 170.2 cm Univ [facility] Body weight 2021-11-05 18:03:00 72.576 kg [facility] BMI 2021-11-05 18:03:00 25.06 kg/m2 Univ [facility] Oxygen saturation in Arterial blood by Pulse oximetry 2021-11-05 18:03:00 100 /min [facility] Systolic blood pressure 2021-10-29 12:00:00 148 mm[Hg] [facility] Diastolic blood pressure 2021-10-29 12:00:00 58 mm[Hg] [facility] Heart rate 2021-10-29 12:00:00 92 /min [facility] Respiratory rate 2021-10-29 12:00:00 12 /min [facility] Oxygen saturation in Arterial blood by Pulse oximetry 2021-10-29 12:00:00 100 /min [facility] Body temperature 2021-10-29 11:12:00 36.11 Briseida [facility] Body height 2021-10-29 11:12:00 [facility] 2021-10-29 11:12:00 72.576 kg [facility] BMI 2021-10-29 11:12:00 25.06 kg/m2 [facility] Systolic blood pressure 2021-10-21 02:21:45 130 mm[Hg] [facility] Diastolic blood pressure 2021-10-21 02:21:45 68 mm[Hg] [facility] Body temperature 2021-10-21 02:21:45 37.22 Briseida [facility] Heart rate 2021-10-21 00:30:00 84 /min [facility] Oxygen saturation in Arterial blood by Pulse oximetry 2021-10-21 00:30:00 98 /min [facility] Respiratory rate 2021-10-20 23:09:00 18 /min [facility] Body height 2021-10-20 21:10:00 170.2 cm [facility] Body weight 2021-10-20 21:10:00 72.576 kg [facility] BMI 2021-10-20 21:10:00 25.06 kg/m2 [facility] height 2021-10-12 09:30:00 63 [in_i] Commo n [facility] weight 2021-10-12 09:30:00 162 [lb_av] Comm on [facility] temperature 2021-10-12 09:30:00 98.3 [degF] Com mon [facility] bmi 2021-10-12 09:30:00 28.69 kg/m2 Comm on [facility] oximetry 2021-10-12 09:30:00 98 % Commo n [facility] respiratory rate 2021-10-12 09:30:00 16 /min [facility] blood pressure systolic 2021-10-12 09:30:00 132 mm[Hg] [facility] blood pressure diastolic 2021-10-12 09:30:00 68 mm[Hg] [facility] Systolic blood pressure 2021-08-26 18:00:00 157 mm[Hg] [facility] Diastolic blood pressure 2021-08-26 18:00:00 97 mm[Hg] [facility] Heart rate 2021-08-26 18:00:00 87 /min [facility] Respiratory rate 2021-08-26 18:00:00 18 /min [facility] Oxygen saturation in Arterial blood by Pulse oximetry 2021-08-26 18:00:00 97 /min [facility] Body temperature 2021-08-26 13:42:00 37.11 Briseida [facility] Body weight 2021-08-26 13:42:00 70.308 kg [facility] BMI 2021-08-26 13:42:00 24.28 kg/m2 [facility] Systolic blood pressure 2020-12-12 16:16:00 97 mm[Hg] [facility] Diastolic blood pressure 2020-12-12 16:16:00 67 mm[Hg] [facility] Heart rate 2020-12-12 16:16:00 97 /min [facility] Body temperature 2020-12-12 16:16:00 37.67 Briseida [facility] Respiratory rate 2020-12-12 16:16:00 18 /min [facility] Oxygen saturation in Arterial blood by Pulse oximetry 2020-12-12 16:16:00 93 /min [facility] Body weight 2020-12-12 08:45:00 95.391 kg [facility] BMI 2020-12-12 08:45:00 32.94 kg/m2 [facility] Body height 2020-12-05 22:36:00 170.2 cm [facility] Systolic blood pressure 2020-07-14 22:03:00 156 mm[Hg] [facility] Diastolic blood pressure 2020-07-14 22:03:00 93 mm[Hg] [facility] Heart rate 2020-07-14 22:03:00 84 /min [facility] Respiratory rate 2020-07-14 22:03:00 20 /min [facility] Oxygen saturation in Arterial blood by Pulse oximetry 2020-07-14 22:03:00 98 /min [facility] Body temperature 2020-07-14 03:11:00 36.67 Briseida [facility] Body weight 2020-07-13 20:13:00 83.898 kg [facility] BMI 2020-07-13 20:13:00 28.97 kg/m2 [facility] Systolic blood pressure 2020-07-13 15:43:00 119 mm[Hg] [facility] Diastolic blood pressure 2020-07-13 15:43:00 77 mm[Hg] [facility] Heart rate 2020-07-13 15:43:00 68 [facility] Oxygen saturation in Arterial blood by Pulse oximetry 2020-07-13 15:43:00 95 /min [facility] Systolic blood pressure 2020-07-07 04:00:00 142 mm[Hg] [facility] Diastolic blood pressure 2020-07-07 04:00:00 94 mm[Hg] [facility] Heart rate 2020-07-07 04:00:00 73 /min [facility] Respiratory rate 2020-07-07 04:00:00 13 /min [facility] Oxygen saturation in Arterial blood by Pulse oximetry 2020-07-07 04:00:00 99 /min [facility] Body temperature 2020-07-07 00:04:24 36.83 Briseida [facility] Body weight 2020-07-06 23:44:00 86.183 kg [facility] BMI 2020-07-06 23:44:00 29.76 kg/m2 [facility] Systolic blood pressure 2020-07-04 21:16:00 142 mm[Hg] [facility] Diastolic blood pressure 2020-07-04 21:16:00 93 mm[Hg] [facility] Heart rate 2020-07-04 21:16:00 72 /min [facility] Respiratory rate 2020-07-04 21:16:00 18 /min [facility] Oxygen saturation in Arterial blood by Pulse oximetry 2020-07-04 21:16:00 97 /min [facility] Body temperature 2020-07-04 17:14:00 36.89 Briseida [facility] Body weight 2020-07-04 17:14:00 86.183 kg [facility] BMI 2020-07-04 17:14:00 29.76 kg/m2 [facility] Systolic blood pressure 2020-06-28 20:07:00 110 mm[Hg] [facility] Diastolic blood pressure 2020-06-28 20:07:00 67 mm[Hg] [facility] Heart rate 2020-06-28 20:07:00 57 /min [facility] Body temperature 2020-06-28 20:07:00 36.83 Briseida [facility] Respiratory rate 2020-06-28 20:07:00 16 /min [facility] Oxygen saturation in Arterial blood by Pulse oximetry 2020-06-28 20:07:00 99 /min [facility] Body height 2020-06-27 03:02:00 170.2 cm [facility] Body weight 2020-06-27 03:02:00 83.008 kg [facility] BMI 2020-06-27 03:02:00 28.66 kg/m2 [facility] Systolic blood pressure 2020-06-02 16:17:00 133 mm[Hg] [facility] Diastolic blood pressure 2020-06-02 16:17:00 89 mm[Hg] [facility] Heart rate 2020-06-02 16:17:00 72 /min [facility] Body temperature 2020-06-02 16:17:00 36.17 Briseida [facility] Respiratory rate 2020-06-02 16:17:00 20 /min [facility] Oxygen saturation in Arterial blood by Pulse oximetry 2020-06-02 16:17:00 96 /min [facility] Body height 2020-05-30 22:29:00 170.2 cm [facility] Body weight 2020-05-30 22:29:00 81.647 kg [facility] BMI 2020-05-30 22:29:00 28.19 kg/m2 [facility] Systolic blood pressure 2020-05-27 02:05:00 118 mm[Hg] [facility] Diastolic blood pressure 2020-05-27 02:05:00 73 mm[Hg] [facility] Heart rate 2020-05-27 02:05:00 80 /min [facility] Respiratory rate 2020-05-27 02:05:00 10 /min [facility] Oxygen saturation in Arterial blood by Pulse oximetry 2020-05-27 02:05:00 93 /min [facility] Body temperature 2020-05-26 23:07:00 37.22 Briseida [facility] Body height 2020-05-26 23:07:00 170.2 cm [facility] Body weight 2020-05-26 23:07:00 88.451 kg [facility] BMI 2020-05-26 23:07:00 30.54 kg/m2 [facility] Systolic blood pressure 2020-05-13 22:00:00 106 mm[Hg] [facility] Diastolic blood pressure 2020-05-13 22:00:00 57 mm[Hg] [facility] Heart rate 2020-05-13 22:00:00 54 /min [facility] Respiratory rate 2020-05-13 22:00:00 16 /min [facility] Oxygen saturation in Arterial blood by Pulse oximetry 2020-05-13 22:00:00 100 /min [facility] Body temperature 2020-05-13 16:33:00 37.56 Briseida [facility] Body weight 2020-05-13 16:33:00 77.111 kg [facility] BMI 2020-05-13 16:33:00 26.63 kg/m2 [facility] Systolic blood pressure 2020-05-13 15:28:00 135 mm[Hg] [facility] Diastolic blood pressure 2020-05-13 15:28:00 88 mm[Hg] [facility] Heart rate 2020-05-13 15:28:00 80 /min [facility] Body temperature 2020-05-13 15:28:00 36.67 Briseida [facility] Respiratory rate 2020-05-13 15:28:00 18 /min [facility] Body height 2020-05-13 15:28:00 170.2 cm [facility] Body weight 2020-05-13 15:28:00 77.111 kg [facility] BMI 2020-05-13 15:28:00 26.63 kg/m2 [facility] Oxygen saturation in Arterial blood by Pulse oximetry 2020-05-13 15:28:00 99 /min [facility] Systolic blood pressure 2020-03-23 15:48:00 130 mm[Hg] [facility] Diastolic blood pressure 2020-03-23 15:48:00 89 mm[Hg] [facility] Heart rate 2020-03-23 15:48:00 95 /min [facility] Body height 2020-03-23 15:48:00 170.2 cm [facility] Body weight 2020-03-23 15:48:00 83.008 kg [facility] BMI 2020-03-23 15:48:00 28.66 kg/m2 [facility] Oxygen saturation in Arterial blood by Pulse oximetry 2020-03-23 15:48:00 100 /min [facility] Systolic blood pressure 2019-12-08 18:48:47 99 mm[Hg] [facility] Diastolic blood pressure 2019-12-08 18:48:47 70 mm[Hg] [facility] Heart rate 2019-12-08 18:48:47 63 /min [facility] Respiratory rate 2019-12-08 18:48:47 18 /min [facility] Oxygen saturation in Arterial blood by Pulse oximetry 2019-12-08 18:48:47 100 /min [facility] Body temperature 2019-12-08 16:07:00 37 Briseida [facility] Body height 2019-12-08 16:07:00 170.2 cm [facility] Body weight 2019-12-08 16:07:00 81.647 kg [facility] BMI 2019-12-08 16:07:00 28.19 kg/m2 [facility] Systolic blood pressure 2019-12-08 15:11:00 119 mm[Hg] [facility] Diastolic blood pressure 2019-12-08 15:11:00 80 mm[Hg] [place] [facility] Heart rate 2019-12-08 15:11:00 83 /[facility] 2019-12-08 15:11:00 36.44 Briseida [facility] Respiratory rate 2019-12-08 15:11:00 18 /min [facility] Body weight 2019-12-08 15:11:00 82.827 kg [facility] BMI 2019-12-08 15:11:00 28.60 kg/m2 [facility] Procedures Procedure Date / Time Performed Performing Clinician Source EXTERNAL PROVIDER RECORDS 2023-03-28 06:01:00 Do ctor Unassigned, [place] [facility] BLOOD CULTURE SCREEN 2023-03-07 11:26:00 Attila Smyth [facility] PHOSPHORUS 2023-03-07 11:26:[facility] 2023-03-07 11:26:00 Sylvie S[place]th [facility] [facility] BASIC METABOLIC PANEL (NA, K, CL, CO2, GLUCOSE, BUN, CREATININE, CA) 2023-03-07 11:26:00 Sylvie Smyth [facility] CBC WITH DIFF 2023-03-07 11:26:00 Sylvie Smyth [facility] CT THORAX WO CONTRAST 2023-03-07 04:18:10 Preet Tomlin [facility] BLOOD CULTURE SCREEN 2023-03-06 19:36:00 Attila Smyth [facility] URINALYSIS 2023-03-06 15:30:00 Sylvie Smyth [facility] URINE CULTURE 2023-03-06 15:30:00 Sylvie Smyth [facility] PHOSPHORUS 2023-03-06 05:42:00 Sylvie Smyth [facility] MAGNESIUM 2023-03-06 05:42:00 Sylvie Smyth [facility] BASIC METABOLIC PANEL (NA, K, CL, CO2, GLUCOSE, BUN, CREATININE, CA) 2023-03-06 05:42:00 Sylvie Smyth [facility] CBC WITH DIFF 2023-03-06 05:42:00 Sylvie Smyth [facility] XR CHEST 1 VW 2023-03-06 05:31:34 Sylvie Smyth [facility] PHYSICIAN ORDERS 2022-12-20 06:01:00 Doctor Unas signed, [place] [facility] CT ABDOMEN PELVIS WO CONTRAST 2022-05-28 01:32:42 Singer [facility] COMP. METABOLIC PANEL ([id number]) 2022-05-28 01:01:00 Singer [facility] CBC WITH DIFF 2022-05-28 01:01:00 Nabil Conway [facility] URINALYSIS 2022-05-28 01:01:00 Singer [facility] CONSENT/REFUSAL FOR DIAGNOSIS AND TREATMENT 2022-05-28 00:18:54 Doctor Unassigned, [place] [facility] XR CHEST 2 VW 2022-02-12 19:22:00 Shireen Raza [facility] URINALYSIS 2021-11-05 20:20:00 Torey Kay [facility] MAGNESIUM 2021-11-05 19:47:00 [facility] TROPONIN I 2021-11-05 19:47:00 Torey Kay [facility] COMP. METABOLIC PANEL ([id number]) 2021-11-05 19:47:00 Torey Kay [facility] CBC WITH DIFF 2021-11-05 19:47:00 Torey Kay [facility] XR CHEST 1 VW 2021-11-05 19:36:08 Torey Kay [facility] CONSENT/REFUSAL FOR DIAGNOSIS AND TREATMENT 2021-11-05 18:50:56 Doctor Unassigned, [place] [facility] POCT MOLECULAR FLU 2021-11-05 18:20:00 Unknown, Attend ing [facility] POCT MOLECULAR STREP 2021-11-05 18:08:00 Unknown, Attjeanine henao [facility] EKG-12 LEAD 2021-10-29 12:47:59 Charles Templeton [facility] CT CHEST PULMONARY ANGIOGRAM 2021-10-29 11:57:27 Charles Templeton [facility] COVID-19 (ID NOW RAPID TESTING) 2021-10-29 11:38:00 Charles Templeton [facility] LIPASE 2021-10-29 11:35:00 Charles Templeton [facility] TROPONIN I 2021-10-29 11:35:00 Charles Templeton [facility] COMP. METABOLIC PANEL ([id number]) 2021-10-29 11:35:00 Charles Templeton [facility] CBC WITH DIFF 2021-10-29 11:35:00 [facility] 2021-10-29 11:35:00 Carlos Templeton [facility] ACTIVATED PARTIAL THRMPLAS AMAN 2021-10-29 11:35:00 Charles Templeton [facility] N-TERMINAL PRO-BNP 2021-10-29 11:35:00 Charles Templeton [facility] CONSENT/REFUSAL FOR DIAGNOSIS AND TREATMENT 2021-10-29 11:05:40 Doctor Unassigned, [place] [facility] URINALYSIS 2021-10-21 00:48:00 Katherine Guerrero [facility] CT ANGIOGRAM ABDOMEN/PELVIS 2021-10-21 00:27:00 Katherine Guerrero [facility] COMP. METABOLIC PANEL ([id number]) 2021-10-20 22:22:00 Katherine Guerrero [facility] CBC WITH DIFF 2021-10-20 22:22:00 Katherine Guerrero [facility] PROTHROMBIN TIME / INR 2021-10-20 22:22:00 Quincy Guerrero [facility] ACTIVATED PARTIAL THRMPLAS AMAN 2021-10-20 22:22:00 Katherine Guerrero [facility] CONSENT/REFUSAL FOR DIAGNOSIS AND TREATMENT 2021-10-20 20:49:49 Doctor Unassigned, [place] [facility] AUTHORIZATION FOR RELEASE OF PHI 2021-09-15 05:01:00 Doctor Unassigned, [place] [facility] CT ABDOMEN PELVIS W CONTRAST 2021-08-26 16:31:09 Torey Kay [facility] URINE DRUG (IMMUNOASSAY) - COMPREHENSIVE DRUG SCREEN 2021-08-26 15:26:00 Torey Kay [facility] URINALYSIS 2021-08-26 15:26:00 Torey Kay [facility] XR CHEST 1 VW 2021-08-26 14:33:00 Torey Kay [facility] BLOOD CULTURE SCREEN 2021-08-26 14:21:00 Torey Kay [facility] BLOOD CULTURE SCREEN 2021-08-26 14:15:00 Torey Kay [facility] LIPASE 2021-08-26 14:15:00 Torey Kay [facility] MAGNESIUM 2021-08-26 14:15:00 Torey Kay [facility] TROPONIN I 2021-08-26 14:15:00 Torey Kay [facility] COMP. METABOLIC PANEL ([id number]) 2021-08-26 14:15:00 Torey Kay [facility] CBC WITH DIFF 2021-08-26 14:15:00 Torey Kay [facility] AC PANEL 21 + LACTIC ACID 2021-08-26 14:14:00 Torey Kay [facility] CONSENT/REFUSAL FOR DIAGNOSIS AND TREATMENT 2021-08-26 13:50:45 Doctor Unassigned, [place] [facility] PHOSPHORUS 2020-12-12 10:06:00 Ad Remy [facility] MAGNESIUM 2020-12-12 10:06:00 Ad Remy [facility] BASIC METABOLIC PANEL (NA, K, CL, CO2, GLUCOSE, BUN, CREATININE, CA) 2020-12-12 10:06:00 Nehemias Pollock Rene [facility] VANCOMYCIN RANDOM LEVEL 2020-12-11 14:30:00 Cynthia Fowler [facility] OSMOLALITY URINE 2020-12-11 10:41:00 Nicole Sanchez [facility] CREATININE, URINE RANDOM 2020-12-11 10:39:00 Nicole Sanchez [facility] POTASSIUM, URINE RANDOM 2020-12-11 10:39:00 Fátima Sanchez [facility] SODIUM, URINE RANDOM 2020-12-11 10:39:00 Juana Sanchez [facility] PHOSPHORUS 2020-12-11 08:50:[facility] 2020-12-11 08:50:00 Nicole Sanchez [facility] MAGNESIUM 2020-12-11 08:50:00 Ad Remy [facility] OSMOLALITY, SERUM OR PLASMA 2020-12-11 08:50:00 Nicole Sanchez [facility] BASIC METABOLIC PANEL (NA, K, CL, CO2, GLUCOSE, BUN, CREATININE, CA) 2020-12-11 08:50:00 Ad Remy [facility] CBC WITH DIFF 2020-12-11 08:50:00 Nasir Fowler [facility] URINALYSIS 2020-12-10 20:31:00 Nasir Fowler [facility] URINE CULTURE 2020-12-10 20:31:00 Nasir Fowler [facility] BLOOD CULTURE SCREEN 2020-12-10 17:58:00 Nasir Fowler [facility] BLOOD CULTURE SCREEN 2020-12-10 17:51:00 Nasir Fowler [facility] PHOSPHORUS 2020-12-10 17:50:00 Zenaida Rodrigez [facility] BASIC METABOLIC PANEL (NA, K, CL, CO2, GLUCOSE, BUN, CREATININE, CA) 2020-12-10 17:50:00 Nicole Sanchez [facility] CBC WITH DIFF 2020-12-10 17:49:00 Janeth Nasir [facility] XR CHEST 1 VW 2020-12-10 17:21:04 Janeth Nasir [facility] VANCOMYCIN TROUGH 2020-12-10 14:44:00 Ad Remy [facility] PHOSPHORUS 2020-12-10 10:29:00 Ad Remy [facility] MAGNESIUM 2020-12-10 10:29:[facility] (NA, K, CL, CO2, GLUCOSE, BUN, CREATININE, CA) 2020-12-10 10:29:00 Ad Remy [facility] BASIC METABOLIC PANEL (NA, K, CL, CO2, GLUCOSE, BUN, CREATININE, CA) 2020-12-10 00:50:00 Nicole Sanchez [facility] VANCOMYCIN TROUGH 2020-12-09 19:02:00 Ad Remy [facility] PHOSPHORUS 2020-12-09 09:58:00 Ad Remy [facility] MAGNESIUM 2020-12-09 09:58:00 [facility]IC PANEL (NA, K, CL, CO2, GLUCOSE, BUN, CREATININE, CA) 2020-12-09 09:58:00 Ad Remy [facility] CT ABDOMEN PELVIS W CONTRAST 2020-12-08 17:35:25 Lesley Jay [facility] PHOSPHORUS 2020-12-08 09:38:00 Ad Remy [facility] MAGNESIUM 2020-12-08 09:38:00 [facility]OLIC PANEL (NA, K, CL, CO2, GLUCOSE, BUN, CREATININE, CA) 2020-12-08 09:38:00 Ad Remy [facility] VANCOMYCIN TROUGH 2020-12-08 06:35:00 Ad Remy [facility] TRANSTHORACIC ECHO (TTE) COMPLETE 2020-12-07 18:35:00 Nasir Fowler [facility] MAGNESIUM 2020-12-07 09:59:00 Ad Remy [facility] BASIC METABOLIC PANEL (NA, K, CL, CO2, GLUCOSE, BUN, CREATININE, CA) 2020-12-07 09:59:00 [facility] 2020-12-07 09:59:00 Sandrita Ad [facility] BASIC METABOLIC PANEL (NA, K, CL, CO2, GLUCOSE, BUN, CREATININE, CA) 2020-12-07 02:15:00 [facility] 2020-12-06 15:50:00 Nick Garcia [facility] BASIC METABOLIC PANEL (NA, K, CL, CO2, GLUCOSE, BUN, CREATININE, CA) 2020-12-06 15:50:00 Ad Remy [facility] CBC WITH DIFF 2020-12-06 15:50:00 Ad Remy [facility] MAGNESIUM 2020-12-05 22:29:00 Ad Remy [facility] BASIC METABOLIC PANEL (NA, K, CL, CO2, GLUCOSE, BUN, CREATININE, CA) 2020-12-05 22:29:00 Alecia Eagle [facility] CT HEAD WO CONTRAST 2020-12-05 20:11:36 Alecia Eagle [facility] POCT GLUCOSE(AGE >30DAYS) 2020-12-05 19:44:00 Alecia Eagle [facility] POCT TEST 2020-12-05 18:53:00 Alecia Eagle [facility] URINE DRUG (IMMUNOASSAY) - COMPREHENSIVE DRUG SCREEN 2020-12-05 18:49:00 Alecia Eagle [facility] URINALYSIS 2020-12-05 18:49:00 Alecia Eagle [facility] URINE CULTURE 2020-12-05 18:49:00 Alecia Eagle [facility] EXTRA TUBE LT. BLUE 2020-12-05 18:49:00 Alecia Eagle [facility] XR CHEST 1 VW 2020-12-05 18:44:56 Alecia Eagle [facility] COVID-19 (ID NOW RAPID TESTING) 2020-12-05 18:39:00 Alecia Eagle [facility] LAB ONLY COVID INTERPRETATION 2020-12-05 18:39:00 Alecia Eagle [facility] BLOOD CULTURE SCREEN 2020-12-05 18:35:00 iVvian Eagle i [facility] LIPASE 2020-12-05 18:35:00 Alecia Eagle [facility] MAGNESIUM 2020-12-05 18:35:00 Alecia Eagle [facility] TROPONIN I 2020-12-05 18:35:00 Alecia Eagle [facility] THYROID STIMULATING HORMONE 2020-12-05 18:35:00 Alecia Eagle [facility] COMP. METABOLIC PANEL ([id number]) 2020-12-05 18:35:00 Alecia Eagle [facility] CBC WITH DIFF 2020-12-05 18:35:00 Alecia Eagle [facility] LACTIC ACID WHOLE BLOOD 2020-12-05 18:34:00 Don Eagle [facility] AC PANEL 20 + LACTIC ACID 2020-12-05 18:34:00 Alecia Eagle [facility] HB ECG ROUTINE & RHYTHM STRIP 2020-12-05 18:24:21 Alecia Eagle [facility] PHYSICIAN ORDERS 2020-09-09 05:01:00 Doctor Remy signed, [place] [facility] CBC WITH DIFF 2020-08-09 17:14:00 Leigh Moran [facility] URINALYSIS 2020-08-09 17:14:00 Leigh Moran [facility] RHEUMATOID FACTOR 2020-08-09 17:14:00 Leigh Moran [facility] C-REACTIVE PROTEIN 2020-08-09 17:14:00 Leigh Moran [facility] COMP. METABOLIC PANEL ([id number]) 2020-08-09 17:14:00 Leigh Moran [facility] SEDIMENTATION RATE 2020-08-09 17:14:00 Leigh Moran [facility] ANTI-SSB(LA) 2020-08-09 17:14:00 [facility] ADC OR LEXX ONLY - RPR 2020-08-09 17:14:00 Carlota Moran [facility] HIV 1/2 AG-AB WITH REFLEX 2020-08-09 17:14:00 Carlota Moran [facility] ASSIGNMENT OF BENEFITS 2020-08-09 16:41:17 Docto r Unassigned, [place] [facility] BODY FLUID DIRECT COUNT 2020-07-14 20:10:00 Hansel Kennedy [facility] CSF CULTURE 2020-07-14 20:10:00 Hansel Kennedy [facility] CEREBROSPINAL FLUID PROTEIN 2020-07-14 20:09:00 Hansel Kennedy [facility] CEREBROSPINAL FLUID GLUCOSE 2020-07-14 20:09:00 Hansel Kennedy [facility] EXTRA TUBE CSF 2020-07-14 20:09:00 Hansel Kennedy [facility] MENINGITIS/ENCEPHALITIS PANEL BY PCR 2020-07-14 20:09:00 Hansel Kennedy [facility] POCT GLUCOSE (AUTOMATED) 2020-07-14 14:55:00 Christina Roque [facility] MAGNESIUM 2020-07-14 13:11:00 Hansel Kennedy [facility] PHOSPHORUS 2020-07-14 13:10:00 Jyothi Francis [facility] XR CHEST 1 VW 2020-07-14 13:06:38 Hansel Kennedy [facility] URINALYSIS 2020-07-14 09:32:00 Bhaskar Reyna [facility] COVID-19 (ID NOW RAPID TESTING) 2020-07-14 09:25:00 Bhaskar Reyna [facility] C-REACTIVE PROTEIN 2020-07-14 01:10:00 Bhaskar Reyna [facility] HEPATIC FUNCTION PANEL ([id number]) (ALB,T.PRO,BILI T,BU/BC,ALT,AST,ALK PHOS) 2020-07-14 01:10:00 Bhaskar Reyna [facility] BASIC METABOLIC PANEL (NA, K, CL, CO2, GLUCOSE, BUN, CREATININE, CA) 2020-07-14 01:10:00 Bhaskar Reyna [facility] SEDIMENTATION RATE 2020-07-14 01:10:00 Bhaskar Reyna [facility] CBC WITH DIFF 2020-07-14 01:10:00 Axel Bhaskar [facility] AUTHORIZATION FOR RELEASE OF PHI 2020-07-08 05:01:00 Doctor Unassigned, [place] [facility] REFERRAL- REQUEST/RESPONSE 2020-07-07 05:01:00 Doctor Unassigned, [place] [facility] CBC WITH DIFF 2020-07-07 03:16:00 Alecia Eagle [facility] NOTICE OF PRIVACY PRACTICES 2020-07-06 23:35:30 Doctor Unassigned, [place] [facility] CONSENT/REFUSAL FOR DIAGNOSIS AND TREATMENT 2020-07-06 23:35:07 Doctor Unassigned, [place] [facility] CT HEAD WO CONTRAST 2020-07-04 19:42:39 Eric Noriega [facility] LIPASE 2020-07-04 18:56:00 Lety Noriega [facility] COMP. METABOLIC PANEL ([id number]) 2020-07-04 18:56:00 Lety Noriega [facility] CBC WITH DIFF 2020-07-04 18:56:00 Lety Noriega [facility] URINALYSIS 2020-07-04 18:56:00 Lety Noriega Fátima U [facility] CONSENT/REFUSAL FOR DIAGNOSIS AND TREATMENT 2020-07-04 17:04:54 Doctor Unassigned, [place] [facility] TROPONIN I 2020-06-27 16:14:00 Eli Rodriguez [facility] MR BRAIN WO CONTRAST 2020-06-27 10:20:11 Melia Cintron ri [facility] COVID-19 (ID NOW RAPID TESTING) 2020-06-26 22:32:00 Sabrina Ruby [facility] CT ANGIOGRAM HEAD 2020-06-26 22:14:[facility] 2020-06-26 22:14:[facility] 2020-06-26 22:02:20 Vy Ruby [facility] URINALYSIS 2020-06-26 21:28:00 Sabrina Ruby [facility] XR CHEST 1 VW 2020-06-26 20:27:04 Sabrina Ruby [facility] TROPONIN I 2020-06-26 20:24:00 [facility] HEPAT[facility] FUNCTION PANEL ([id number]) (ALB,T.PRO,BILI T,BU/BC,ALT,AST,ALK PHOS) 2020-06-26 20:24:00 Sabrina Ruby [facility] BASIC METABOLIC PANEL (NA, K, CL, CO2, GLUCOSE, BUN, CREATININE, CA) 2020-06-26 20:24:00 Sabrina Ruby [facility] SEDIMENTATION RATE 2020-06-26 20:24:00 Delicia Ruby [facility] CBC WITH DIFF 2020-06-26 20:24:00 Sabrina Ruby [facility] HB ECG ROUTINE & RHYTHM STRIP 2020-06-26 20:16:57 Sabrina Ruby [facility] CONSENT/REFUSAL FOR DIAGNOSIS AND TREATMENT 2020-06-26 20:02:52 Doctor Unassigned, [place] [facility] COMP. METABOLIC PANEL ([id number]) 2020-06-01 09:54:00 Zenaida Rodrigez [facility] BASIC METABOLIC PANEL (NA, K, CL, CO2, GLUCOSE, BUN, CREATININE, CA) 2020-05-31 14:36:00 Cade Hernadez [facility] CBC WITH DIFF 2020-05-31 12:26:00 Ad Remy [facility] CT ABDOMEN PELVIS W WO CONTRAST 2020-05-30 20:49:43 Katherine Guerrero [facility] BLOOD CULTURE SCREEN 2020-05-30 20:16:00 Shiv Guerrero [facility] LACTIC ACID WHOLE BLOOD 2020-05-30 20:15:00 Do afshan Guerrero [facility] URINALYSIS 2020-05-30 20:14:00 Katherine Guerrero [facility] HEPATIC FUNCTION PANEL ([id number]) (ALB,T.PRO,BILI T,BU/BC,ALT,AST,ALK PHOS) 2020-05-30 20:13:00 Katherine Guerrero [facility] BASIC METABOLIC PANEL (NA, K, CL, CO2, GLUCOSE, BUN, CREATININE, CA) 2020-05-30 20:13:00 Katherine Guerrero [facility] CBC WITH DIFF 2020-05-30 20:13:00 Katherine Guerrero [facility] PROTHROMBIN TIME / INR 2020-05-30 20:13:00 Quincy Guerrero [facility] ACTIVATED PARTIAL THRMPLAS AMAN 2020-05-30 20:13:00 Katherine Guerrero [facility] COVID-19 (ID NOW RAPID TESTING) 2020-05-30 20:13:00 Katherine Guerrero [facility] LAB ONLY COVID INTERPRETATION 2020-05-30 20:13:00 Katherine Guerrero [facility] BLOOD CULTURE SCREEN 2020-05-30 20:09:00 Shiv Guerrero [facility] CONSENT/REFUSAL FOR DIAGNOSIS AND TREATMENT 2020-05-30 19:22:16 Doctor Unassigned, [place] [facility] URINALYSIS 2020-05-27 00:16:00 Umm Mares [facility] HEPATIC FUNCTION PANEL ([id number]) (ALB,T.PRO,BILI T,BU/BC,ALT,AST,ALK PHOS) 2020-05-26 23:25:00 Umm Mares [facility] BASIC METABOLIC PANEL (NA, K, CL, CO2, GLUCOSE, BUN, CREATININE, CA) 2020-05-26 23:25:00 Umm Mares [facility] CBC WITH DIFF 2020-05-26 23:25:00 Umm Mares [facility] CONSENT/REFUSAL FOR DIAGNOSIS AND TREATMENT 2020-05-26 22:59:39 Doctor Unassigned, [place] [facility] URINALYSIS 2020-05-13 18:34:00 Dottie Troncoso [facility] CT ABDOMEN PELVIS W CONTRAST 2020-05-13 17:26:18 Dottie Troncoso [facility] LIPASE 2020-05-13 16:47:00 Dottie Troncoso [facility] HEPATIC FUNCTION PANEL ([id number]) (ALB,T.PRO,BILI T,BU/BC,ALT,AST,ALK PHOS) 2020-05-13 16:47:00 Dottie Troncoso [facility] BASIC METABOLIC PANEL (NA, K, CL, CO2, GLUCOSE, BUN, CREATININE, CA) 2020-05-13 16:47:00 Dottie Troncoso [facility] CBC WITH DIFF 2020-05-13 16:47:00 Dottie Troncoso [facility] NOTICE OF PRIVACY PRACTICES 2020-05-13 16:27:55 Doctor Unassigned, [place] [facility] CONSENT/REFUSAL FOR DIAGNOSIS AND TREATMENT 2020-05-13 16:23:10 Doctor Unassigned, [place] [facility] EXTERNAL PROVIDER RECORDS 2019-12-10 05:01:00 Do ctor Unassigned, [place] [facility] US ABDOMEN LIMITED 2019-12-08 18:04:34 Lesley Bee [facility] XR CHEST 1 VW 2019-12-08 17:33:32 [facility] ABDOMEN PELVIS WO CONTRAST 2019-12-08 16:24:35 Lesley Bee [facility] COMP. METABOLIC PANEL ([id number]) 2019-12-08 16:15:00 Lesley Bee [facility] CBC WITH DIFF 2019-12-08 16:15:00 Lesley Bee [facility] URINALYSIS 2019-12-08 16:13:00 [facility] 2019-12-08 16:12:00 Lesley Bee [facility] NOTICE OF PRIVACY PRACTICES 2019-12-08 15:46:34 Doctor Unassigned, [place] [facility] CONSENT/REFUSAL FOR DIAGNOSIS AND TREATMENT 2019-12-08 15:46:19 Doctor Unassigned, [place] [facility] POCT URINALYSIS AUTO 2019-12-08 15:09:00 Emily Mcgowan [facility] PHYSICIAN CERTIFICATION STATEMENT 2019-09-29 05:01:00 Doctor Unassigned, [place] [facility] AGREEMENTS AUTHORIZATIONS AND IRREVOCABLE ASSIGNMENTS (FORM 2001) 2019-03-28 06:01:00 Doctor Unassigned, [place] [facility] Plan of Care Planned Activity Planned Date Details Comments Source Future Scheduled Test 2023-10-26 00:00:00 Lipid panel (procedure) [code = 46511384] [facility] Future Scheduled Test 2021-10-13 00:00:00 INFLUENZA VACCINE (#1) [code = INFLUENZA VACCINE (#1)] [facility] Future Scheduled Test 1996-05-19 00:00:00 Screening for malignant neoplasm of cervix (procedure) [code = 789401211] [facility] Future Scheduled Test 1994-05-19 00:00:00 DTAP/TDAP/TD VACCINES (1 - Tdap) [code = DTAP/TDAP/TD VACCINES (1 - Tdap)] [facility] Future Scheduled Test 1993-05-19 00:00:00 HEPATITIS C SCREENING [code = HEPATITIS C SCREENING] [facility] Future Scheduled Test 1981-05-19 00:00:00 PNEUMOCOCCAL VACCINE 0-64 YRS (1 - PCV) [code = PNEUMOCOCCAL VACCINE 0-64 YRS (1 - PCV)] [facility] Future Scheduled Test 1975 00:00:00 COVID-19 VACCINE (#1) [code = COVID-19 VACCINE (#1)] [facility] Future Scheduled Test 1975 00:00:00 CT Colonography (combo) [code = CT Colonography (combo)] [facility] Future Scheduled Test 1975 00:00:00 Screening for malignant neoplasm of colon (procedure) [code = 491063478] [facility] Future Scheduled Test 1975 00:00:00 Screening for malignant neoplasm of colon (procedure) [code = 768321033] [facility] Future Scheduled Test 1975 00:00:00 Screening for malignant neoplasm of colon (procedure) [code = 926303664] [facility] Future Scheduled Test 1975 00:00:00 Screening for malignant neoplasm of colon (procedure) [code = 745314765] [facility] Future Scheduled Test 1975 00:00:00 Sigmoidoscopy [code = Sigmoidoscopy] [facility] Encounters Start Date/Time End Date/Time Encounter Type Admission Type Attending [facility] Facility Care Department Encounter ID Source 2023-05-23 08:07:00 Outpatient Nick Fallon [facility] [id number] [facility] 2022-10-18 14:05:00 Outpatient Nick Fallon [facility] [id number] [facility] 2021-10-24 13:29:00 Outpatient Nick Fallon [facility] [id number] [facility] 2021-09-19 14:12:01 Outpatient Nick Fallon [facility] [id number] 2021-03-09 13:01:40 Outpatient Levy Hernandez [facility] [id number] [facility] 2021-03-09 13:01:30 Outpatient Levy Hernandez STLMLC ST[facility] [id number] [facility] 2020-12-12 22:28:[address] [facility] [id number] [facility] 2020-12-12 21:17:[address] [facility] [id number] [facility] 2020-12-12 20:44:[address] [facility] [id number] [facility] 2020-12-12 13:38:[address] [facility] [id number] [facility] 2020-12-12 12:59:[address] [facility] [id number] [facility] 2020-12-12 10:04:[address] [facility] [id number] [facility] 2020-12-11 01:01:[address] 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 [id number] [facility] 2023-06-21 00:00:00 2023-06-21 00:00:00 (PO FX) PO FX STLMLC STLMLC [id number] [facility] 2023-06-07 00:00:00 2023-06-07 00:00:00 (PO FX) PO FX STLMLC STLMLC [id number] [facility] 2023-03-28 00:00:00 2023-03-28 00:00:00 Orders Only Doctor Unassigned, [place] [facility] 1.2.840.114 350.1.13.10 4.2.7.2.686 [id number] [facility] 2023-03-08 00:00:00 2023-03-08 00:00:00 Transition of Care Kalie Chow 1.2.840.114 350.1.13.10 4.2.7.2.686 [id number] [facility] 2023-03-05 22:48:00 2023-03-07 17:20:00 Inpatient U TAE TOMLIN [facility] [id number] [facility] 2023-03-05 22:48:00 2023-03-07 17:20:00 Hospital Encounter [facility] 1.2.840.114 350.1.13.10 4.2.7.2.686 [id number] [facility] 2022-12-20 00:00:00 2022-12-20 00:00:00 Orders Only Doctor Unassigned, [place] [facility] 1.2.840.114 350.1.13.10 4.2.7.2.686 [id number] [facility] 2022-11-23 00:00:00 2022-11-23 00:00:00 OFFICE VISIT [facility]AB [facility] [id number] [facility] 2022-10-24 00:00:00 2022-10-24 00:00:00 OFFICE VISIT NEW PT LEVEL 3 [facility] [id number] [facility] 2022-05-27 19:35:00 2022-05-27 22:34:00 Emergency NABIL DELACRUZ [facility] ERT [id number] [facility] 2022-05-27 19:35:00 2022-05-27 22:34:00 Emergency ConwayNabil oden [facility] 1.2.840.114 350.1.13.10 4.2.7.2.686 [id number] [facility] 2022-05-27 00:00:00 2022-05-27 00:00:00 Orders Only Doctor Unassigned, [place] [facility] 1.2.840.114 350.1.13.10 4.2.7.2.686 [id number] [facility] 2022-02-12 13:05:15 2022-02-12 23:59:00 Outpatient R SHIREEN RAZA [facility] [id number] [facility] 2022-02-12 13:05:15 2022-02-12 23:59:00 [facility] 1.2.840.114 350.1.13.10 4.2.7.2.686 [id number] [facility] 2022-02-12 12:40:00 2022-02-12 13:44:52 Urgent Care Ry Shireen Ibanez, Attending PERSON [facility] 1.2.840.114 350.1.13.10 4.2.7.2.686 [id number] [facility] 2022-02-12 00:00:00 2022-02-12 00:00:00 Telephone [facility] 1.2.840.114 350.1.13.10 4.2.7.2.686 [id number] [facility] 2021-11-05 13:57:00 2021-11-05 18:42:00 Emergency X Torey KAY [facility] ERT [id number] [facility] 2021-11-05 13:57:00 2021-11-05 18:42:00 Emergency Torey Kay [facility] 1.2.840.114 350.1.13.10 4.2.7.2.686 [id number] [facility] 2021-11-05 13:00:00 2021-11-05 13:20:00 Urgent Care Anum Garay Unknown, Attending PERSON [facility] 1.2.840.114 350.1.13.10 4.2.7.2.686 [id number] [facility] 2021-11-05 13:00:00 2021-11-05 13:00:00 Outpatient R ANUM GARAY [facility] [id number] [facility] 2021-10-29 06:06:00 2021-10-29 08:18:00 Emergency X CHARLES TEMPLETON [facility] ERT [id number] [facility] 2021-10-29 06:06:00 2021-10-29 08:18:00 Emergency Jareth [place] [facility] 1..840.114 350.1.13.10 4.2.7.2.686 [id number] [facility] 2021-10-20 16:11:00 2021-10-20 21:33:00 Emergency X ALECIA EAGLE [facility] ERT [id number] [facility] 2021-10-20 16:11:00 2021-10-20 21:33:00 Emergency Katherine Guerrero [place] S [facility] 1..840.114 350.1.13.10 4.2.7.2.686 [id number] [facility] 2021-10-18 00:00:00 2021-10-18 00:00:00 (TEL) STLMLC STLMLC [id number] [facility] 2021-10-12 00:00:2021-10-12 00:00:00 OFFICE VISIT ESTAB PT LEVEL 5 [facility] STLMLC [id number] [facility] 2021-09-26 00:00:00 2021-09-26 00:00:00 (TEL) STLMLC STLMLC [id number] [facility] 2021-09-19 00:00:00 2021-09-19 00:00:00 OFFICE VISIT NEW PT LEVEL 3 STLMLC STLMLC [id number] [facility] 2021-09-15 00:00:00 2021-09-15 00:00:00 Orders Only Doctor Unassigned, [place] [facility] 1.840.114 350.1.13.10 4.2.7.2.686 [id number] [facility] 2021-08-26 08:39:00 2021-08-26 14:03:00 Emergency X Torey KAY [facility] ERT [id number] [facility] 2021-08-26 08:39:00 2021-08-26 14:03:00 Emergency Torey Kayge [facility] 1.840.114 350.1.13.10 4.2.7.2.686 [id number] [facility] 2021-03-08 00:00:00 2021-03-08 00:00:00 Johnson Matthews [facility] PROFESSIO [facility] 1.840.114 350.1.13.10 4.2.7.2.686 [id number] [facility] 2020-12-23 00:00:00 2020-12-23 00:00:00 Outpatient R [facility] [id number] [facility] 2020-12-14 00:00:00 2020-12-14 00:00:00 Transition of Care Josselin Redman 1..840.114 350.1.13.10 4.2.7.2.686 [id number] [facility] 2020-12-14 00:00:00 2020-12-14 00:00:00 Patient Secure Msg Doctor Unassigned, [place] [facility] 1.2840.114 350.1.13.10 4.2.7.2.686 [id number] [facility] 2020-12-05 13:25:00 2020-12-12 15:45:00 Inpatient X AD REMY [facility] CHOLO [id number] [facility] 2020-12-05 13:25:00 2020-12-12 15:45:00 Hospital Encounter Shagufta Donlakhwinderjulianne Ad Noguera [facility] 1.2840.114 350.1.13.10 4.2.7.2.686 [id number] [facility] 2020-11-01 00:00:00 2020-11-01 00:00:00 Refill Hansel Kennedy [facility] Medical Office Building 1.284.114 350.1.13.10 4.2.7.2.686 [id number] [facility] 2020-10-12 00:00:00 2020-10-12 00:00:00 [facility] 1.2840.114 350.1.13.10 4.2.7.2.686 [id number] [facility] 2020-10-07 10:29:15 2020-10-07 10:44:15 Clasp Machine Operator Visit Pob, Adc Lab Main Anish Carrera [facility] nal Building 1.2840.114 350.1.13.10 4.2.7.2.686 [id number] [facility] 2020-10-07 10:30:00 2020-10-07 10:30:00 Outpatient ANISH GONZALEZ [facility] [id number] [facility] 2020-09-10 00:00:00 2020-09-10 00:00:00 Refill Lavon ArrietaEaton, Hansel [facility] Building 1.2.840.114 350.1.13.10 4.2.7.2.686 [id number] [facility] 2020-09-09 00:00:00 2020-09-09 00:00:00 Orders Only Doctor Unassigned, [place] [facility] 1.2840.114 350.1.13.10 4.2.7.2.686 [id number] [facility] 2020-09-06 00:00:00 2020-09-06 00:00:[address] [facility] 1..114 350.1.13.10 4.2.7.2.686 [id number] [facility] 2020-08-13 00:00:00 2020-08-13 00:00:00 Refill Hansel Kennedy [facility] Building 1.2840.114 350.1.13.10 4.2.7.2.686 [id number] [facility] 2020-08-09 12:00:00 2020-08-09 12:00:00 Outpatient ANISH GONZALEZ [facility] [id number] [facility] 2020-08-09 11:42:15 2020-08-09 11:57:15 Clasp Machine Operator Visit Pob, Adc Lab Anish [facility]azo [facility] 1.2840.114 350.1.13.10 4.2.7.2.686 [id number] [facility] 2020-08-09 00:00:00 2020-08-09 00:00:00 Orders Only Doctor Unassigned, [place] [facility] 1.2840.114 350.1.13.10 4.2.7.2.686 [id number] [facility] 2020-08-04 00:00:00 2020-08-04 00:00:00 Patient Secure Msg Doctor Unassigned, [place] [facility] 1.2840.114 350.1.13.10 4.2.7.2.686 [id number] [facility] 2020-08-04 00:00:00 2020-08-04 00:00:00 Patient Secure Msg Doctor Unassigned, [place] [facility] 1.2840.114 350.1.13.10 4.2.7.2.686 [id number] [facility] 2020-07-13 15:14:00 2020-07-14 19:27:00 Emergency Auf[place]heide , Shi Roque, [facility] 1.0.114 350.1.13.10 4.2.7.2.686 [id number] [facility] 2020-07-13 09:44:58 2020-07-13 11:19:02 Office Visit Johnson [facility] 1.2.114 350.1.13.10 4.2.7.2.686 [id number] [facility] 2020-07-13 09:40:00 2020-07-13 09:40:00 Outpatient JOHNSON OSPINA HOWARD [facility] [id number] [facility] 2020-07-13 00:00:00 2020-07-13 00:00:00 Letter (Out) Fercho Hernandez [facility] 1.20.114 350.1.13.10 4.2.7.2.686 [id number] [facility] 2020-07-08 00:00:00 2020-07-08 00:00:00 Orders Only Doctor Unassigned, [place] [facility] 1.2.840.114 350.1.13.10 4.2.7.2.686 [id number] [facility] 2020-07-07 00:00:00 2020-07-07 00:00:00 Orders Only Doctor Unassigned, [place] [facility] 1.2.840.114 350.1.13.10 4.2.7.2.686 [id number] [facility] 2020-07-07 00:00:00 2020-07-07 00:00:00 Telephone Angy Vizcarra [facility] 1.2.840.114 350.1.13.10 4.2.7.2.686 [id number] [facility] 2020-07-06 18:48:00 2020-07-06 23:59:00 Emergency Alecia Eagle S [facility] 1.2.840.114 350.1.13.10 4.2.7.2.686 [id number] [facility] 2020-07-05 00:00:00 2020-07-05 00:00:00 Patient Secure Msg Doctor Unassigned, [place] [facility] PROFESSIO [facility] 1.2.840.114 350.1.13.10 4.2.7.2.686 [id number] [facility] 2020-07-04 12:16:00 2020-07-04 18:32:00 Emergency Lety Noriega [facility] 1.2.840.114 350.1.13.10 4.2.7.2.686 [id number] [facility] 2020-06-26 15:08:00 2020-06-28 18:15:00 Emergency Sabrina Ruby Pending [facility] 1.840.114 350.1.13.10 4.2.7.2.686 [id number] [facility] 2020-06-26 15:08:00 2020-06-28 18:15:00 Outpatient Arthur HERNANDEZ [facility] JYOTHI [id number] [facility] 2020-06-28 00:00:00 2020-06-28 00:00:00 Telephone Johnson Fisher [facility] 1..840.114 350.1.13.10 4.2.7.2.686 [id number] [facility] 2020-06-22 00:00:00 2020-06-22 00:00:00 Outpatient STLMLC ST[facility]C [id number] [facility] 2020-05-30 14:32:00 2020-06-02 11:50:00 Emergency Katherine Guerrero Jelani Abdullah, Yaman [facility] 1.2.840.114 350.1.13.10 4.2.7.2.686 [id number] [facility] 2020-05-31 09:45:00 2020-05-31 09:45:00 Outpatient ABHIJIT ANSARI [facility] [id number] [facility] 2020-05-26 18:10:00 2020-05-26 21:41:00 Emergency Umm Mares [facility] 1..840.114 350.1.13.10 4.2.7.2.686 [id number] [facility] 2020-05-26 00:00:00 2020-05-26 00:00:00 Orders Only Doctor Unassigned, [place] [facility] 1.840.114 350.1.13.10 4.2.7.2.686 [id number] [facility] 2020-05-13 11:30:00 2020-05-13 17:34:00 Emergency Dottie Troncoso [facility] 1.840.114 350.1.13.10 4.2.7.2.686 [id number] [facility] 2020-05-13 10:10:06 2020-05-13 11:10:27 Urgent Care Provider, [facility] Sarah Orantes [facility] Office Building One 1..114 350.1.13.10 4.2.7.2.686 [id number] [facility] 2020-05-13 11:00:00 2020-05-13 11:00:00 Outpatient R SARAH ORANTES [facility] [id number] [facility] 2020-05-13 00:00:00 2020-05-13 00:00:00 Orders Only Doctor Unassigned, [place] [facility] 1..114 350.1.13.10 4.2.7.2.686 [id number] [id number] [facility] 2020-04-19 00:00:00 2020-04-19 00:00:00 Johnson Matthews [facility] Building 1.0.114 350.1.13.10 4.2.7.2.686 [id number] [id number] [facility] 2020-04-09 00:00:00 2020-04-09 00:00:00 Johnson Matthews [facility] Building 1.840.114 350.1.13.10 4.2.7.2.686 [id number] [id number] [facility] 2020-03-23 09:29:15 2020-03-23 10:11:33 Office Visit Johnson Fisher [facility] Building 1.2840.114 350.1.13.10 4.2.7.2.686 [id number] [facility] 2020-03-23 09:20:00 2020-03-23 09:20:00 Outpatient R JOHNSON FISHER HOWARD [facility] [id number] [facility] 2020-03-15 00:00:00 2020-03-15 00:00:00 Refill Johnson Fisher [facility] 1.2840.114 350.1.13.10 4.2.7.2.686 [id number] [facility] 2019-12-10 00:00:00 2019-12-10 00:00:00 Orders Only Doctor Unassigned, [place] [facility] 1.2840.114 350.1.13.10 4.2.7.2.686 [id number] [facility] 2019-12-09 00:00:00 2019-12-09 00:00:00 Case Management Kari Lau [facility] 1.2840.114 350.1.13.10 4.2.7.2.686 [id number] [facility] 2019-12-08 11:01:00 2019-12-08 14:17:00 Emergency Lesley Bee [facility] 1.2840.114 350.1.13.10 4.2.7.2.686 [id number] [facility] 2019-12-08 09:53:04 2019-12-08 10:44:29 Office Visit Abhijit Mcgowan [facility] Building 1.2840.114 350.1.13.10 4.2.7.2.686 [id number] [facility] 2019-12-08 10:15:00 2019-12-08 10:15:00 Outpatient Krystal JEFFRIESABHIJIT Sanchez [facility] [id number] [facility] 2019-12-08 00:00:00 2019-12-08 00:00:00 Orders Only Doctor Unassigned, [place] [facility] 1.20.114 350.1.13.10 4.2.7.2.686 [id number] [facility] 2019-12-06 00:00:00 2019-12-06 00:00:00 [facility]Johnson [facility] 1.84.114 350.1.13.10 4.2.7.2.686 [id number] [facility] 2019-10-17 00:00:00 2019-10-17 00:00:00 [facility] Building 1.84.114 350.1.13.10 4.2.7.2.686 [id number] [facility] 2019-09-29 00:00:00 2019-09-29 00:00:00 Orders Only Doctor Unassigned, [place] [facility] 1..114 350.1.13.10 4.2.7.2.686 [id number] [facility] 2019-09-23 00:00:00 2019-09-23 00:00:00 Daniela Fisher [facility] Building 1.84.114 350.1.13.10 4.2.7.2.686 [id number] [facility] 2019-08-07 00:00:00 2019-08-07 00:00:00 [facility] 1.2.840.114 350.1.13.10 4.2.7.2.686 [id number] [facility] 2019-05-21 00:00:00 2019-05-21 00:00:00 Telephone [facility] 1.2.840.114 350.1.13.10 4.2.7.2.686 [id number] [facility] 2019-04-24 00:00:00 2019-04-24 00:00:00 Telephone [facility] 1.2.840.114 350.1.13.10 4.2.7.2.686 [id number] [facility] 2019-04-17 00:00:00 2019-04-17 00:00:00 Telephone Johnson Fisher [facility] Building 1.2.840.114 350.1.13.10 4.2.7.2.686 [id number] [facility] 2019-04-07 00:00:00 2019-04-07 00:00:00 Telephone Johnson Fisher [facility] Building 1.2.840.114 350.1.13.10 4.2.7.2.686 [id number] [facility] 2019-03-28 11:02:20 2019-03-28 11:17:20 Clasp Machine Operator Visit 2, Adc Lab Johnson Fisher [facility] Building 1.2.840.114 350.1.13.10 4.2.7.2.686 [id number] [facility] 2019-03-28 09:56:36 2019-03-28 10:59:16 Office Visit Johnson Fisher [facility] Building 1.2.840.114 350.1.13.10 4.2.7.2.686 [id number] [id number] [facility] 2019-03-28 00:00:00 2019-03-28 00:00:00 Orders Only Doctor Unassigned, [place] [facility] 1..840.114 350.1.13.10 4.2.7.2.686 [id number] [facility] 2018-11-05 11:03:00 2018-11-05 11:03:00 Emergency [id number] 2017-08-24 08:45:00 2017-08-24 08:45:00 Outpatient [facility] [id number] [facility] 2017-08-01 10:15:00 2017-08-01 10:15:00 Outpatient [facility] [id number] [facility] Results Test Description Test Time Test Comments Results Result Comments Source CT THORAX WO CONTRAST 2023-02-13 4 07:28:23 Exam: CT Chest Without Contrast, 03/06/2023 5:00 PM. Ordering Physician: TAE TOMLIN. History: Abnormal xray - lung nodule, >= 1 cm . Comparison: Chest radiograph 03/05/2023. CT chest angiogram 10/29/2021. Technique: CT chest was obtained without contrast. ?CT was performedaccording to ALARA (As Low As Reasonably Achievable). Technical Quality: Adequate. Findings: Lower neck: Heterogeneous thyroid gland without dominant nodule.Subcutaneous emphysema in the lower neck. Pulmonary: No pleural effusion. Right upper lobe pulmonary nodulesmeasuring up to 1.4 x 1.0 cm, these have decreased in size from prior CTangiogram. Curvilinear regions of atelectasis versus scarring. No focalconsolidation or pulmonary mass. Central airways are patent. Cardiomediastinal: Small volume pneumomediastinum. Normal heart size. Nopericardial effusion. Normal caliber of the aorta and central pulmonaryarteries. No lymphadenopathy. Small amount of residual radiodense fluid inthe distal esophagus. No extraluminal contrast is identified. Upper Abdomen: Nonobstructive left renal stones measuring up to 3 mm.Fluid-filled large bowel. Prior cholecystectomy. Osseous: No acute osseous finding. [facility] XR CHEST 1 VW 2023--2 3 09:34:20 Ordering physician: SYLVIE SMYTH Indication: Chest pain, pneumomediastinum Comparison: Chest radiograph dated 02/12/2022 Technical quality: Adequate Findings: Single AP view of the chest. The cardiopericardial silhouette iswithin normal limits. There is questionable minimal air lucency along theright heart border. No soft tissue air is seen extending into the lowerneck. The lungs are clear bilaterally. The visualized bony thorax isintact. [facility] WITH [id number] 01:15:09* Test Item Value Reference Range Interpretation Comme nts WBC (test code = 6690-2) 10.84 See_Comment [[employer]] The system which generated this result transmitted reference range: 4.30 - 11.10 10*3/?L. The reference range was not used to interpret this result as normal/abnormal. RBC (test code = 789-8) 3.57 See_Comment L [[employer]] The system which generated this result transmitted reference range: 3.93 - 5.25 10*6/?L. The reference range was not used to interpret this result as normal/abnormal. HGB (test code = 718-7) 11.0 g/dL 11.6-15.0 L HCT (test code = 4544-3) 32.9 % 35.7-45.2 L MCV (test code = 787-2) 92.2 fL 80.6-95.5 MCH (test code = 785-6) 30.8 pg 25.9-32.8 MCHC (test code = 786-4) 33.4 g/dL 31.6-35.1 RDW-SD (test code = 64526-8) 61.2 fL 39.0-49.9 H RDW-CV (test code = 788-0) 18.0 % 12.0-15.5 H PLT (test code = 777-3) 339 See_Comment [Automated messa ge] The system which generated this result transmitted reference range: 166 - 358 10*3/?L. The reference range was not used to interpret this result as normal/abnormal. MPV (test code = 92796-8) 9.7 fL 9.5-12.9 NRBC/100 WBC (test code = 1016523042) 0.0 See_Comment [Automated me ssage] The system which generated this result transmitted reference range: 0.0 - 10.0 /100 WBCs. The reference range was not used to interpret this result as normal/abnormal. NRBC x10^3 (test code = 2986435325) See_Comment [Automated messa ge] The system which generated this result transmitted reference range: 10*3/?L. The reference range was not used to interpret this result as normal/abnormal. GRAN MAT (NEUT) % (test code = 770-8) 62.2 % IMM GRAN % (test code = 5947422158) 2.00 % LYMPH % (test code = 736-9) 26.9 % MONO % (test code = 5905-5) 7.9 % EOS % (test code = 713-8) 0.7 % BASO % (test code = 706-2) 0.3 % GRAN MAT x10^3(ANC) (test code = 8314602745) 6.73 10*3/uL 1.88-7.09 IMM GRAN x10^3 (test code = 4241210838) 0.22 10*3/uL 0.00-0.06 H LYMPH x10^3 (test code = 731-0) 2.92 10*3/uL 1.32-3.29 MONO x10^3 (test code = 742-7) 0.86 10*3/uL 0.33-0.92 EOS x10^3 (test code = 711-2) 0.08 10*3/uL 0.03-0.39 BASO x10^3 (test code = 704-7) 0.03 10*3/uL 0.01-0.07 Lab Interpretation (test code = 19389-6) [id number] 20:33:36* Test Item Value Reference Range Interpretation Comments TROPONIN I (test code = 4955973809) 0.006 ng/mL See_Comment [Automated message] The system which generated this result transmitted reference range: <=0.034. The reference range was not used to interpret this result as normal/abnormal. ANTHONY (test code = ANTHONY) Reference (Normal) Range (defined by the 99th percentile reference [...] to patient's use of biotin. Lab Interpretation (test code = 40248-5) [facility] 20:24:14* Test Item Value Reference Range Interpretation Comme nts MAGNESIUM (test code = 9468555561) 1.9 mg/dL 1.7-2.4 Lab Interpretation (test cod e = 13438-3) Normal [facility]OL[facility] PAN[facility] (30390)2021-11-05 20:23:53* Test Item Value Reference Range Interpretation Comme nts NA (test code = 0184882709) 139 mmol/L 135-145 K (test code = 7782191974) 3.9 mmol/L 3.5-5 CL (test code = 6934133001) 108 mmol/L 98-108 CO2 TOTAL (test code = 4090823296) 18 mmol/L 23-31 L AGAP (test code = 8794818122) 2-16 BUN (test code = 3679095624) 14 mg/dL 7-23 GLUCOSE (test code = 8091410453) 99 mg/dL 70-110 CREATININE (test code = 1810311383) 0.71 mg/dL 0.5-1.04 TOTAL BILI (test code = 6348061851) 0.4 mg/dL 0.1-1.1 CALCIUM (test code = 0609752889) 9.3 mg/dL 8.6-10.6 T PROTEIN (test code = 7530902860) 7.8 g/dL 6.3-8.2 ALBUMIN (test code = 0275045003) 4.5 g/dL 3.5-5 ALK PHOS (test code = 2487489152) 111 U/L 34-122 ALTv (test code = 1742-6) 32 U/L 5-35 AST(SGOT) (test code = 9850659439) 41 U/L 13-40 H eGFR (test code = 5841463878) mL/min/1.73m2 ANTHONY (test code = ANTHONY) Association [...] imaging tests). Lab Interpretation (test code = 52873-1) Abnormal [facility] WITH [id number] 20:05:58* Test Item Value Reference Range Interpretation Comme nts WBC (test code = 6690-2) See_Comment L [Automated Reesio] The system which generated this result transmitted reference range: 4.30 - 11.10 10*3/?L. The reference range was not used to interpret this result as normal/abnormal. RBC (test code = 789-8) See_Comment L [Automated messa ge] The system which generated this result transmitted reference range: 3.93 - 5.25 10*6/?L. The reference range was not used to interpret this result as normal/abnormal. HGB (test code = 718-7) 10.8 g/dL 11.6-15 L HCT (test code = 4544-3) 32.1 % 35.7-45.2 L MCV (test code = 787-2) 90.4 fL 80.6-95.5 MCH (test code = 785-6) 30.4 pg 25.9-32.8 MCHC (test code = 786-4) 33.6 g/dL 31.6-35.1 RDW-SD (test code = 75243-8) 52.3 fL 39-49.9 H RDW-CV (test code = 788-0) 16.1 % 12-15.5 H PLT (test code = 777-3) See_Comment [Automated messa ge] The system which generated this result transmitted reference range: 166 - 358 10*3/?L. The reference range was not used to interpret this result as normal/abnormal. MPV (test code = 57715-5) 9.9 fL 9.5-12.9 NRBC/100 WBC (test code = 0109420325) See_Comment [Automated [employer] ssage] The system which generated this result transmitted reference range: 0.0 - 10.0 /100 WBCs. The reference range was not used to interpret this result as normal/abnormal. NRBC x10^3 (test code = 9854270202) See_Comment [Automated messa ge] The system which generated this result transmitted reference range: 10*3/?L. The reference range was not used to interpret this result as normal/abnormal. GRAN MAT (NEUT) % (test code = 770-8) 43.9 % IMM GRAN % (test code = 3122212811) 0.30 % LYMPH % (test code = 736-9) 46.5 % MONO % (test code = 5905-5) 8.5 % EOS % (test code = 713-8) 0.5 % BASO % (test code = 706-2) 0.3 % GRAN MAT x10^3(ANC) (test code = 8316932589) 1.71 10*3/uL 1.88-7.09 L IMM GRAN x10^3 (test code = 9336553518) 0-0.06 LYMPH x10^3 (test code = 731-0) 1.81 10*3/uL 1.32-3.29 MONO x10^3 (test code = 742-7) 0.33 10*3/uL 0.33-0.92 EOS x10^3 (test code = 711-2) 0.03-0.39 L BASO x10^3 (test code = 704-7) 0.01-0.07 Lab Interpretation (test code = 86429-0) Abnormal [facility] MOLECULAR [id number] 18:32:12* Test Item Value Reference Range Interpretation Comme nts POCT Molecular FluA (test co de = 47951-5) Negative Negative POCT Molecular FluB (test co de = 14236-8) Negative Negative Lab Interpretation (test cod e = 17328-7) Normal [facility] MOLECULAR [id number] 18:16:35* Test Item Value Reference Range Interpretation Comme nts POCT Molecular Strep (test c ode = 72830-7) Negative Negative Lab Interpretation (test cod e = 26637-8) Normal [facility] CampusTROP[facility] [id number] 12:15:46* Test Item Value Reference Range Interpretation Comments TROPONIN I (test code = 4421694421) 0.004 ng/mL See_Comment [Automated message] The system which generated this result transmitted reference range: <=0.034. The reference range was not used to interpret this result as normal/abnormal. ANTHONY (test code = ANTHONY) Reference (Normal) Range (defined by the 99th percentile reference [...] to patient's use of biotin. Lab Interpretation (test code = 79306-6) Normal [facility]N-TERMINAL [id number] 12:12:30* Test Item Value Reference Range Interpretation Comme [facility] NT-proBNP (test code = 8929227865) 26 pg/mL See_Comment [Automated message] The system which generated this result transmitted reference range: <=125. The reference range was not used to interpret this result as normal/abnormal. ANTHONY (test code = ANTHONY) Biotin has been reported to cause a negative bias, interpret results relative to patient's use of biotin. Lab Interpretation (test code = 51769-1) Normal [facility]ACTIV[facility] PARTIAL THRMPLAS [id number] 12:12:29* Test Item Value Reference Range Interpretation Comme [facility] APTT Patient (test code = 3173-2) See_Comment [Automated message] The system which generated this result transmitted reference range: 23 - 38 Seconds. The reference range was not used to interpret this result as normal/abnormal. ANTHONY (test code = ANTHONY) The [facility] patient population mean normal value for aPTT is 30 seconds. Lab Interpretation (test code = 99153-2) Normal [facility] CampusPROTHROMBIN TIME / [id number] 12:10:08* Test Item Value Reference Range Interpretation Comme [facility] PROTIME PATIENT (test code = 5964-2) See_Comment [Automated [employer]] The system which generated this result transmitted reference range: 12.0 - 14.7 Seconds. The reference range was not used to interpret this result as normal/abnormal. INR (test code = 6301-6) Normal INR <1.1; Warfarin Therapeutic range 2.0 to 3.0 or 2.5 to 3.5, depending upon the indications. Lab Interpretation (test code = 61695-4) [facility] (79023)2021-10-29 12:03:49* Test Item Value Reference Range Interpretation Comme nts NA (test code = 9405895744) 139 mmol/L 135-145 K (test code = 4596136099) 3.9 mmol/L 3.5-5 CL (test code = 8430942797) 110 mmol/L 98-108 H CO2 TOTAL (test code = 8567827738) 17 mmol/L 23-31 L AGAP (test code = 3887773100) 2-16 BUN (test code = 5947638447) 23 mg/dL 7-23 GLUCOSE (test code = 3451719071) 122 mg/dL 70-110 H CREATININE (test code = 4735889117) 1.05 mg/dL 0.5-1.04 H TOTAL BILI (test code = 5369455042) 0.4 mg/dL 0.1-1.1 CALCIUM (test code = 0064009545) 9.5 mg/dL 8.6-10.6 T PROTEIN (test code = 0161249762) 7.5 g/dL 6.3-8.2 ALBUMIN (test code = 6736572374) 4.6 g/dL 3.5-5 ALK PHOS (test code = 6844228385) 134 U/L 34-122 H ALTv (test code = 1742-6) 28 U/L 5-35 AST(SGOT) (test code = 4885562776) 29 U/L 13-40 eGFR (test code = 3247981045) mL/min/1.73m2 ANTHONY (test code = ANTHONY) Association [...] imaging tests). Lab Interpretation (test code = 89010-8) Abnormal [facility] CampusLIPASE2022-09-17 12:03:49* Test Item Value Reference Range Interpretation Comme nts LIPASE (test code = 7025283574) 63 U/L 0-220 Lab Interpretation (test cod e = 29154-9) Normal [facility] CampusCB WITH [id number] 11:59:27* Test Item Value Reference Range Interpretation Comme nts WBC (test code = 6690-2) See_Comment H [Automated messa ge] The system which generated this result transmitted reference range: 4.30 - 11.10 10*3/?L. The reference range was not used to interpret this result as normal/abnormal. RBC (test code = 789-8) See_Comment L [Automated messa ge] The system which generated this result transmitted reference range: 3.93 - 5.25 10*6/?L. The reference range was not used to interpret this result as normal/abnormal. HGB (test code = 718-7) 9.9 g/dL 11.6-15 L HCT (test code = 4544-3) 30.7 % 35.7-45.2 L MCV (test code = 787-2) 92.2 fL 80.6-95.5 MCH (test code = 785-6) 29.7 pg 25.9-32.8 MCHC (test code = 786-4) 32.2 g/dL 31.6-35.1 RDW-SD (test code = 62910-2) 51.6 fL 39-49.9 H RDW-CV (test code = 788-0) 15.4 % 12-15.5 PLT (test code = 777-3) See_Comment H [Automated messa ge] The system which generated this result transmitted reference range: 166 - 358 10*3/?L. The reference range was not used to interpret this result as normal/abnormal. MPV (test code = 84710-6) 9.9 fL 9.5-12.9 NRBC/100 WBC (test code = 7774952299) See_Comment [Automated [employer] ssage] The system which generated this result transmitted reference range: 0.0 - 10.0 /100 WBCs. The reference range was not used to interpret this result as normal/abnormal. NRBC x10^3 (test code = 3418000817) See_Comment [Automated messa ge] The system which generated this result transmitted reference range: 10*3/?L. The reference range was not used to interpret this result as normal/abnormal. GRAN MAT (NEUT) % (test code = 770-8) 73.7 % IMM GRAN % (test code = 8447086783) 0.30 % LYMPH % (test code = 736-9) 20.4 % MONO % (test code = 5905-5) 4.8 % EOS % (test code = 713-8) 0.5 % BASO % (test code = 706-2) 0.3 % GRAN MAT x10^3(ANC) (test code = 7406142623) 8.49 10*3/uL 1.88-7.09 H IMM GRAN x10^3 (test code = 6197229951) 0.04 10*3/uL 0-0.06 LYMPH x10^3 (test code = 731-0) 2.35 10*3/uL 1.32-3.29 MONO x10^3 (test code = 742-7) 0.55 10*3/uL 0.33-0.92 EOS x10^3 (test code = 711-2) 0.06 10*3/uL 0.03-0.39 BASO x10^3 (test code = 704-7) 0.03 10*3/uL 0.01-0.07 Lab Interpretation (test code = 86349-8) Abnormal [facility]ACT[facility] THRMPLAS [id number] 23:16:59* Test Item Value Reference Range Interpretation Comme nts APTT Patient (test code = 3173-2) See_Comment [Automated message] The system which generated this result transmitted reference range: 23 - 38 Seconds. The reference range was not used to interpret this result as normal/abnormal. ANTHONY (test code = ANTHONY) The [facility] patient population mean normal value for aPTT is 30 seconds. Lab Interpretation (test code = 31589-7) Normal [facility] CampusPROTHROMBIN TIME / [id number] 23:15:01* Test Item Value Reference Range Interpretation Comme nts PROTIME PATIENT (test code = 5964-2) See_Comment H [Automated messa ge] The system which generated this result transmitted reference range: 12.0 - 14.7 Seconds. The reference range was not used to interpret this result as normal/abnormal. INR (test code = 6301-6) Normal INR <1.1; Warfarin Therapeutic range 2.0 to 3.0 or 2.5 to 3.5, depending upon the indications. Lab Interpretation (test code = 48477-7) Abnormal [facility] CampusCOMP[facility] MET[facility]OLIC PANEL (00796)2021-10-20 22:51:53* Test Item Value Reference Range Interpretation Comme nts NA (test code = 4540786914) 137 mmol/L 135-145 K (test code = 2573087594) 5.1 mmol/L 3.5-5 H CL (test code = 9194447090) 105 mmol/L 98-108 CO2 TOTAL (test code = 0147655009) 22 mmol/L 23-31 L AGAP (test code = 1245141186) 2-16 BUN (test code = 6402212998) 27 mg/dL 7-23 H GLUCOSE (test code = 4800258604) 139 mg/dL 70-110 H CREATININE (test code = 1801821029) 1.23 mg/dL 0.5-1.04 H TOTAL BILI (test code = 1382596522) 0.1-1.1 L CALCIUM (test code = 6751789402) 8.8 mg/dL 8.6-10.6 T PROTEIN (test code = 0214620153) 7.1 g/dL 6.3-8.2 ALBUMIN (test code = 4940703856) 4.5 g/dL 3.5-5 ALK PHOS (test code = 5857606511) 158 U/L 34-122 H ALTv (test code = 1742-6) 130 U/L 5-35 H AST(SGOT) (test code = 2346530782) 70 U/L 13-40 H eGFR (test code = 2147709021) mL/min/1.73m2 ANTHONY (test code = ANTHONY) Association [...] imaging tests). Lab Interpretation (test code = 86149-2) Abnormal [facility] WITH [id number] 22:39:51* Test Item Value Reference Range Interpretation Comme nts WBC (test code = 6690-2) See_Comment [Automated [employer]] The system which generated this result transmitted reference range: 4.30 - 11.10 10*3/?L. The reference range was not used to interpret this result as normal/abnormal. RBC (test code = 789-8) See_Comment L [Automated messa ge] The system which generated this result transmitted reference range: 3.93 - 5.25 10*6/?L. The reference range was not used to interpret this result as normal/abnormal. HGB (test code = 718-7) 8.9 g/dL 11.6-15 L HCT (test code = 4544-3) 27.2 % 35.7-45.2 L MCV (test code = 787-2) 90.7 fL 80.6-95.5 MCH (test code = 785-6) 29.7 pg 25.9-32.8 MCHC (test code = 786-4) 32.7 g/dL 31.6-35.1 RDW-SD (test code = 29489-5) 51.7 fL 39-49.9 H RDW-CV (test code = 788-0) 15.5 % 12-15.5 PLT (test code = 777-3) See_Comment [Automated [employer]] The system which generated this result transmitted reference range: 166 - 358 10*3/?L. The reference range was not used to interpret this result as normal/abnormal. MPV (test code = 74934-1) 10.2 fL 9.5-12.9 NRBC/100 WBC (test code = 8125319875) See_Comment [Automated [employer] ssage] The system which generated this result transmitted reference range: 0.0 - 10.0 /100 WBCs. The reference range was not used to interpret this result as normal/abnormal. NRBC x10^3 (test code = 1305213073) See_Comment [Automated [employer]] The system which generated this result transmitted reference range: 10*3/?L. The reference range was not used to interpret this result as normal/abnormal. GRAN MAT (NEUT) % (test code = 770-8) 83.6 % IMM GRAN % (test code = 2937841425) 0.60 % LYMPH % (test code = 736-9) 10.7 % MONO % (test code = 5905-5) 5.0 % EOS % (test code = 713-8) 0.0 % BASO % (test code = 706-2) 0.1 % GRAN MAT x10^3(ANC) (test code = 0694615877) 8.64 10*3/uL 1.88-7.09 H IMM GRAN x10^3 (test code = 0152869242) 0.06 10*3/uL 0-0.06 LYMPH x10^3 (test code = 731-0) 1.11 10*3/uL 1.32-3.29 L MONO x10^3 (test code = 742-7) 0.52 10*3/uL 0.33-0.92 EOS x10^3 (test code = 711-2) 0.03-0.39 L BASO x10^3 (test code = 704-7) 0.01-0.07 Lab Interpretation (test code = 67420-2) [facility]normal [facility] 21 + LACTIC [id number] 14:22:59* Test Item Value Reference Range Interpretation Comme nts PH (test code = 1205692300) 7.32-7.42 PCO2 ZULEYMA (test code = 7153070338) See_Comment [Automated messa ge] The system which generated this result transmitted reference range: 41 - 51 mmHg. The reference range was not used to interpret this result as normal/abnormal. PO2 ZULEYMA (test code = 2684810854) See_Comment [Automated messa ge] The system which generated this result transmitted reference range: 25 - 40 mmHg. The reference range was not used to interpret this result as normal/abnormal. HCO3 ZULEYMA (test code = 9680737352) See_Comment L [Automated messa ge] The system which generated this result transmitted reference range: 24 - 28 mEq/L. The reference range was not used to interpret this result as normal/abnormal. AC VBE(BEAKER) (test code = 2305876662) mEq/L THB ZULEYMA (test code = 8444395088) 14.7 g/dL 12-16 %O2HB ZULEYMA (test code = 9071240555) 50.1 % 52-63 L %COHB ZULEYMA (test code = 2898824248) 1.0 % 0-1.5 %METHB ZULEYMA (test code = 1365656353) 0.3 % 0.4-1.5 L VOL%O2 ZULEYMA (test code = 9164365461) 10.3 % 6-12 NA (test code = 2480260442) 139 mmol/L 135-145 K+ (test code = 0328053086) 3.7 mmol/L 3.5-5 AC CA IONZ (test code = 6305333135) 5.10 mg/dL 4.5-5.3 GLUCOSE (test code = 0738951478) 92 mg/dL 70-110 LACTIC ACID (test code = 8947874685) 1.49 mmol/L 0.5-2.2 Lab Interpretation (test code = 62262-2) Abnormal [facility] METABOLIC PANEL (NA, K, CL, CO2, GLUCOSE, BUN, CREATININE, CA)2020-12-12 11:05:50* Test Item Value Reference Range Interpretation Comme nts NA (test code = 3795225814) 133 mmol/L 135-145 L K (test code = 8434996433) 5.0 mmol/L 3.5-5.0 CL (test code = 4996088338) 105 mmol/L 98-108 CO2 TOTAL (test code = 3199975553) 24 mmol/L 23-31 AGAP (test code = 0888451220) 2-16 BUN (test code = 8787960946) 9 mg/dL 7-23 GLUCOSE (test code = 9429403516) 93 mg/dL 70-110 CREATININE (test code = 1314717645) 0.57 mg/dL 0.50-1.04 CALCIUM (test code = 4138472281) 9.8 mg/dL 8.6-10.6 eGFR (test code = 7093581507) mL/min/1.73m2 ANTHONY (test code = ANTHONY) Association [...] imaging tests). Lab Interpretation (test code = 28795-3) [facility]normal [facility]2021-[facility]-31 11:05:50* Test Item Value Reference Range Interpretation Comme nts MAGNESIUM (test code = 7333377431) 2.3 mg/dL 1.7-2.4 Lab Interpretation (test cod e = 37876-6) Normal [facility]PHOS[facility]ORUS2021-10-31 11:05:30* Test Item Value Reference Range Interpretation Comme nts PHOSPHORUS (test code = 4827958547) 4.1 mg/dL 2.5-5.0 Lab Interpretation (test cod e = 32686-7) Normal [facility] CampusOSMOLALITY, SERUM OR [id number] 17:26:02 * Test Item Value Reference Range Interpretation Comme nts OSMOLALITY (test code = 3184342032) See_Comment [Automated [employer]] The system which generated this result transmitted reference range: 278 - 305 mOsm/kg. The reference range was not used to interpret this result as normal/abnormal. Lab Interpretation (test code = 58420-4) Normal [facility] CampusVancomycin Random [id number] 15:46:31* Test Item Value Reference Range Interpretation Comme nts VANCO RANDOM (test code = 5707110371) 8.9 ug/mL [facility] CampusBASIC METABOLIC PANEL (NA, K, CL, CO2, GLUCOSE, BUN, CREATININE, CA)2020-12-11 10:02:40* Test Item Value Reference Range Interpretation Comme nts NA (test code = 1970861563) 135 mmol/L 135-145 K (test code = 1173500728) 4.7 mmol/L 3.5-5.0 CL (test code = 0890034100) 107 mmol/L 98-108 CO2 TOTAL (test code = 5588730536) 24 mmol/L 23-31 AGAP (test code = 9278923060) 2-16 BUN (test code = 8705303502) 9 mg/dL 7-23 GLUCOSE (test code = 8324492477) 98 mg/dL 70-110 CREATININE (test code = 0599149299) 0.62 mg/dL 0.50-1.04 CALCIUM (test code = 9247734021) 9.5 mg/dL 8.6-10.6 eGFR (test code = 5552301977) mL/min/1.73m2 ANTHONY (test code = ANTHONY) Association [...] or urine or abnormalities in imaging tests). [facility] WITH [id number] 09:45:31* Test Item Value Reference Range Interpretation Comme nts WBC (test code = 6690-2) See_Comment [Automated messa ge] The system which generated this result transmitted reference range: 4.30 - 11.10 10*3/?L. The reference range was not used to interpret this result as normal/abnormal. RBC (test code = 789-8) See_Comment L [Automated messa ge] The system which generated this result transmitted reference range: 3.93 - 5.25 10*6/?L. The reference range was not used to interpret this result as normal/abnormal. HGB (test code = 718-7) 9.0 g/dL 11.6-15.0 L HCT (test code = 4544-3) 28.1 % 35.7-45.2 L MCV (test code = 787-2) 97.6 fL 80.6-95.5 H MCH (test code = 785-6) 31.3 pg 25.9-32.8 MCHC (test code = 786-4) 32.0 g/dL 31.6-35.1 RDW-SD (test code = 38605-1) 55.5 fL 39.0-49.9 H RDW-CV (test code = 788-0) 15.6 % 12.0-15.5 H PLT (test code = 777-3) See_Comment [Automated messa ge] The system which generated this result transmitted reference range: 166 - 358 10*3/?L. The reference range was not used to interpret this result as normal/abnormal. MPV (test code = 91696-0) 11.5 fL 9.5-12.9 NRBC/100 WBC (test code = 4855188190) See_Comment [Automated [employer] ssage] The system which generated this result transmitted reference range: 0.0 - 10.0 /100 WBCs. The reference range was not used to interpret this result as normal/abnormal. NRBC x10^3 (test code = 1607536714) See_Comment [Automated messa ge] The system which generated this result transmitted reference range: 10*3/?L. The reference range was not used to interpret this result as normal/abnormal. GRAN MAT (NEUT) % (test code = 770-8) 44.2 % IMM GRAN % (test code = 6561230829) 5.40 % LYMPH % (test code = 736-9) 35.6 % MONO % (test code = 5905-5) 14.1 % EOS % (test code = 713-8) 0.3 % BASO % (test code = 706-2) 0.4 % GRAN MAT x10^3(ANC) (test code = 1395268794) 2.99 10*3/uL 1.88-7.09 IMM GRAN x10^3 (test code = 2686154422) 0.37 10*3/uL 0.00-0.06 H LYMPH x10^3 (test code = 731-0) 2.42 10*3/uL 1.32-3.29 MONO x10^3 (test code = 742-7) 0.96 10*3/uL 0.33-0.92 H EOS x10^3 (test code = 711-2) <0.03 0.03-0.39 L BASO x10^3 (test code = 704-7) 0.03 10*3/uL 0.01-0.07 Lab Interpretation (test code = 25296-3) [facility]normal [facility]2021-[facility]-30 09:37:24* Test Item Value Reference Range Interpretation Comme nts MAGNESIUM (test code = 3582694841) 2.3 mg/dL 1.7-2.4 Lab Interpretation (test cod e = 06277-8) Normal [facility]PHOS[facility]OR[facility]2021-10-30 09:37:04* Test Item Value Reference Range Interpretation Comme nts PHOSPHORUS (test code = 2959164598) 2.8 mg/dL 2.5-5.0 Lab Interpretation (test cod e = 58032-4) Normal [facility] CampusURIC NTTP7330-04-40 09:36:44* Test Item Value Reference Range Interpretation Comme nts URIC ACID (test code = 3534851304) 3.2 mg/dL 2.9-6.0 Lab Interpretation (test cod e = 78012-8) Normal [facility] Campus[facility] Met[facility] Panel (NA, K, CL, CO2, GLUCOSE, BUN, CREATININE, CA)2020-12-10 20:08:36* Test Item Value Reference Range Interpretation Comme nts NA (test code = 2711677586) 126 mmol/L 135-145 L K (test code = 3265366803) 3.7 mmol/L 3.5-5.0 CL (test code = 2763841659) 102 mmol/L 98-108 CO2 TOTAL (test code = 4371188546) 21 mmol/L 23-31 L AGAP (test code = 6501504518) 2-16 BUN (test code = 2508089397) 9 mg/dL 7-23 GLUCOSE (test code = 2637576249) 116 mg/dL 70-110 H CREATININE (test code = 2310039212) 0.72 mg/dL 0.50-1.04 CALCIUM (test code = 6360400326) 8.9 mg/dL 8.6-10.6 eGFR (test code = 9281047294) mL/min/1.73m2 ANTHONY (test code = ANTHONY) Association [...] imaging tests). Lab Interpretation (test code = 06784-4) Abnormal [facility] CULTURE [id number] 20:01:33* Test Item Value Reference Range Interpretation Comme nts Blood Culture-Aerobic (test code = 70116-9) No organisms isolated No growth Previous preliminary verified result was Culture In Progress on 12/05/2020 at 1802 CDTPrevious preliminary verified result was No growth at 24 hours on 12/06/2020 at 1501 CDTPrevious preliminary verified result was No growth at 48 hours on 12/07/2020 at 1501 CDTPrevious preliminary verified result was No growth at 72 hours on 12/08/2020 at 1501 CDT Blood Culture-Anaerobic (test code = 60034-6) No organisms isolated No growth Previous preliminary verified result was Culture In Progress on 12/05/2020 at 1802 CDTPrevious preliminary verified result was No growth at 24 hours on 12/06/2020 at 1501 CDTPrevious preliminary verified result was No growth at 48 hours on 12/07/2020 at 1501 CDTPrevious preliminary verified result was No growth at 72 hours on 12/08/2020 at 1501 CDT Lab Interpretation (test code = 20180-2) Normal [facility] CULTURE [id number] 20:01:33* Test Item Value Reference Range Interpretation Comme [facility] Blood Culture-Aerobic (test code = 36908-9) No organisms isolated No growth Previous preliminary verified result was Culture In Progress on 12/05/2020 at 1802 CDTPrevious preliminary verified result was No growth at 24 hours on 12/06/2020 at 1501 CDTPrevious preliminary verified result was No growth at 48 hours on 12/07/2020 at 1501 CDTPrevious preliminary verified result was No growth at 72 hours on 12/08/2020 at 1501 CDT Blood Culture-Anaerobic (test code = 68119-4) No organisms isolated No growth Previous preliminary verified result was Culture In Progress on 12/05/2020 at 1802 CDTPrevious preliminary verified result was No growth at 24 hours on 12/06/2020 at 1501 CDTPrevious preliminary verified result was No growth at 48 hours on 12/07/2020 at 1501 CDTPrevious preliminary verified result was No growth at 72 hours on 12/08/2020 at 1501 CDT Lab Interpretation (test code = 95341-8) [facility] 19:00:05* Test Item Value Reference Range Interpretation Comme nts PHOSPHORUS (test code = 0640617874) 2.5 mg/dL 2.5-5.0 Lab Interpretation (test cod e = 37953-5) Normal [facility] [id number] 18:49:57* Test Item Value Reference Range Interpretation Comme nts WBC (test code = 6690-2) See_Comment [Automated messa ge] The system which generated this result transmitted reference range: 4.30 - 11.10 10*3/?L. The reference range was not used to interpret this result as normal/abnormal. RBC (test code = 789-8) See_Comment L [Automated messa ge] The system which generated this result transmitted reference range: 3.93 - 5.25 10*6/?L. The reference range was not used to interpret this result as normal/abnormal. HGB (test code = 718-7) 8.8 g/dL 11.6-15.0 L HCT (test code = 4544-3) 25.2 % 35.7-45.2 L MCV (test code = 787-2) 94.0 fL 80.6-95.5 MCH (test code = 785-6) 32.8 pg 25.9-32.8 MCHC (test code = 786-4) 34.9 g/dL 31.6-35.1 RDW-SD (test code = 56399-1) 52.4 fL 39.0-49.9 H RDW-CV (test code = 788-0) 15.2 % 12.0-15.5 PLT (test code = 777-3) See_Comment L [Automated messa ge] The system which generated this result transmitted reference range: 166 - 358 10*3/?L. The reference range was not used to interpret this result as normal/abnormal. MPV (test code = 36994-6) 10.8 fL 9.5-12.9 NRBC/100 WBC (test code = 7976292674) See_Comment [Automated me ssage] The system which generated this result transmitted reference range: 0.0 - 10.0 /100 WBCs. The reference range was not used to interpret this result as normal/abnormal. NRBC x10^3 (test code = 3609785368) See_Comment [Automated messa ge] The system which generated this result transmitted reference range: 10*3/?L. The reference range was not used to interpret this result as normal/abnormal. GRAN MAT (NEUT) % (test code = 770-8) 47.2 % IMM GRAN % (test code = 2818401368) 5.80 % LYMPH % (test code = 736-9) 29.2 % MONO % (test code = 5905-5) 17.1 % EOS % (test code = 713-8) 0.4 % BASO % (test code = 706-2) 0.3 % GRAN MAT x10^3(ANC) (test code = 4667016228) 3.14 10*3/uL 1.88-7.09 IMM GRAN x10^3 (test code = 8078816007) 0.39 10*3/uL 0.00-0.06 H LYMPH x10^3 (test code = 731-0) 1.95 10*3/uL 1.32-3.29 MONO x10^3 (test code = 742-7) 1.14 10*3/uL 0.33-0.92 H EOS x10^3 (test code = 711-2) 0.03 10*3/uL 0.03-0.39 BASO x10^3 (test code = 704-7) <0.03 0.01-0.07 POLYCHROMASIA (test code = 53623-8) 2+ See_Comment [Automated messa ge] The system which generated this result transmitted reference range: 2+. The reference range was not used to interpret this result as normal/abnormal. BANDS (test code = 3401328888) Increased A Lab Interpretation (test code = 41120-1) Abnormal [facility] T[facility] Level - Draw random trough at [id number] 16:37:29* Test Item Value Reference Range Interpretation Comme nts VANCO TROUGH (test code = 4585103709) 19.4 ug/mL 10.0-20.0 ANTHONY (test code = ANTHONY) Toxic Range: ?>20 ug/mL 15-20 ug/mL is recommended for severe infection or when Vancomycin RAHEEM is greater than or equal to 2. Lab Interpretation (test code = 55396-6) Normal [facility]20[facility] 11:49:21* Test Item Value Reference Range Interpretation Comme nts MAGNESIUM (test code = 1215879172) 2.1 mg/dL 1.7-2.4 Lab Interpretation (test cod e = 05870-1) Normal [facility] METABOLIC PANEL (NA, K, CL, CO2, GLUCOSE, BUN, CREATININE, CA)2020-12-10 11:49:05* Test Item Value Reference Range Interpretation Comme nts NA (test code = 3166377477) 129 mmol/L 135-145 L K (test code = 8559345907) 3.0 mmol/L 3.5-5.0 L CL (test code = 8740868607) 103 mmol/L 98-108 CO2 TOTAL (test code = 8896464663) 25 mmol/L 23-31 AGAP (test code = 9784241086) 2-16 L BUN (test code = 1869042421) 10 mg/dL 7-23 GLUCOSE (test code = 6717310641) 123 mg/dL 70-110 H CREATININE (test code = 0725566655) 0.84 mg/dL 0.50-1.04 CALCIUM (test code = 7223594523) 8.9 mg/dL 8.6-10.6 eGFR (test code = 1738773102) mL/min/1.73m2 ANTHONY (test code = ANTHONY) Association [...] imaging tests). Lab Interpretation (test code = 98279-2) [facility]normal [facility]20[facility] 11:48:59* Test Item Value Reference Range Interpretation Comme nts PHOSPHORUS (test code = 5253110857) 1.0 mg/dL 2.5-5.0 L Lab Interpretation (test cod e = 75314-9) Abnormal [facility] Met[facility] Panel (NA, K, CL, CO2, GLUCOSE, BUN, CREATININE, CA)2020-12-10 02:21:51* Test Item Value Reference Range Interpretation Comme nts NA (test code = 4444317910) 130 mmol/L 135-145 L K (test code = 6305364142) 3.6 mmol/L 3.5-5.0 CL (test code = 7046084190) 106 mmol/L 98-108 CO2 TOTAL (test code = 0784697279) 21 mmol/L 23-31 L AGAP (test code = 0069421898) 2-16 BUN (test code = 6952629295) 9 mg/dL 7-23 GLUCOSE (test code = 4406231773) 142 mg/dL 70-110 H CREATININE (test code = 9947762815) 0.59 mg/dL 0.50-1.04 CALCIUM (test code = 2404504450) 8.4 mg/dL 8.6-10.6 L eGFR (test code = 7952916723) mL/min/1.73m2 ANTHONY (test code = ANTHONY) Association [...] imaging tests). Lab Interpretation (test code = 22485-2) Abnormal [facility] Trough Level - Draw no more than 60 minutes before the 1330 dose.2020-12-09 20:29:37* Test Item Value Reference Range Interpretation Comme nts VANCO TROUGH (test code = 2244447134) 20.9 ug/mL 10.0-20.0 H ANTHONY (test code = ANTHONY) Toxic Range: ?>20 ug/mL 15-20 ug/mL is recommended for severe infection or when Vancomycin RAHEEM is greater than or equal to 2. Lab Interpretation (test code = 08640-8) Abnormal [facility]OL[facility] (NA, K, CL, CO2, GLUCOSE, BUN, CREATININE, CA)2020-12-09 11:48:35* Test Item Value Reference Range Interpretation Comme nts NA (test code = 8197491705) 129 mmol/L 135-145 L K (test code = 3693139786) 2.8 mmol/L 3.5-5.0 LL CL (test code = 2487216230) 104 mmol/L 98-108 CO2 TOTAL (test code = 0907970115) 20 mmol/L 23-31 L AGAP (test code = 2315098415) 2-16 BUN (test code = 3311172407) 10 mg/dL 7-23 GLUCOSE (test code = 4760649537) 120 mg/dL 70-110 H CREATININE (test code = 7885081987) 0.68 mg/dL 0.50-1.04 CALCIUM (test code = 2656712555) 7.9 mg/dL 8.6-10.6 L eGFR (test code = 3893492821) mL/min/1.73m2 ANTHONY (test code = ANTHONY) Association [...] imaging tests). Lab Interpretation (test code = 64558-9) Abnormal [facility]2021-10-28 11:47:08* Test Item Value Reference Range Interpretation Comme nts MAGNESIUM (test code = 4861907922) 2.2 mg/dL 1.7-2.4 Lab Interpretation (test cod e = 58620-8) Normal [facility]2021-[facility]-28 11:46:48* Test Item Value Reference Range Interpretation Comme nts PHOSPHORUS (test code = 7605406603) 2.4 mg/dL 2.5-5.0 L Lab Interpretation (test cod e = 54500-1) Abnormal [facility] (NA, K, CL, CO2, GLUCOSE, BUN, CREATININE, CA)2020-12-08 12:06:15* Test Item Value Reference Range Interpretation Comme nts NA (test code = 6850294651) 130 mmol/L 135-145 L K (test code = 0852561198) 2.8 mmol/L 3.5-5.0 LL CL (test code = 3831791965) 104 mmol/L 98-108 CO2 TOTAL (test code = 8184078651) 19 mmol/L 23-31 L AGAP (test code = 4774061239) 2-16 BUN (test code = 9504521807) 9 mg/dL 7-23 GLUCOSE (test code = 9590368695) 114 mg/dL 70-110 H CREATININE (test code = 4246283979) 0.72 mg/dL 0.50-1.04 CALCIUM (test code = 7871341537) 7.9 mg/dL 8.6-10.6 L eGFR (test code = 1304538055) mL/min/1.73m2 ANTHONY (test code = ANTHONY) Association [...] imaging tests). Lab Interpretation (test code = 48362-8) Abnormal [facility]2021-[facility]-27 11:58:12* Test Item Value Reference Range Interpretation Comme nts MAGNESIUM (test code = 3312978405) 1.9 mg/dL 1.7-2.4 Lab Interpretation (test cod e = 76178-0) Normal [facility]2021-10-27 11:57:52* Test Item Value Reference Range Interpretation Comme nts PHOSPHORUS (test code = 4813015797) 2.7 mg/dL 2.5-5.0 Lab Interpretation (test cod e = 38175-8) Normal [facility] CampusVancomycin Trough Level - Draw no more than 60 minutes before the 0130 dose.2020-12-08 07:49:28* Test Item Value Reference Range Interpretation Comme nts VANCO TROUGH (test code = 7199506695) 18.4 ug/mL 10.0-20.0 ANTHONY (test code = ANTHONY) Toxic Range: ?>20 ug/mL 15-20 ug/mL is recommended for severe infection or when Vancomycin RAHEEM is greater than or equal to 2. Lab Interpretation (test code = 86774-4) Normal [facility]CB WITH [id number] 13:32:28* Test Item Value Reference Range Interpretation Comme nts WBC (test code = 6690-2) See_Comment [Automated messa ge] The system which generated this result transmitted reference range: 4.30 - 11.10 10*3/?L. The reference range was not used to interpret this result as normal/abnormal. RBC (test code = 789-8) See_Comment L [Automated messa ge] The system which generated this result transmitted reference range: 3.93 - 5.25 10*6/?L. The reference range was not used to interpret this result as normal/abnormal. HGB (test code = 718-7) 10.7 g/dL 11.6-15.0 L HCT (test code = 4544-3) 30.3 % 35.7-45.2 L MCV (test code = 787-2) 92.9 fL 80.6-95.5 MCH (test code = 785-6) 32.8 pg 25.9-32.8 MCHC (test code = 786-4) 35.3 g/dL 31.6-35.1 H RDW-SD (test code = 62549-5) 50.9 fL 39.0-49.9 H RDW-CV (test code = 788-0) 15.0 % 12.0-15.5 PLT (test code = 777-3) See_Comment [Automated [employer]] The system which generated this result transmitted reference range: 166 - 358 10*3/?L. The reference range was not used to interpret this result as normal/abnormal. MPV (test code = 39748-0) 11.3 fL 9.5-12.9 NRBC/100 WBC (test code = 6056173781) See_Comment [Automated [employer] ssage] The system which generated this result transmitted reference range: 0.0 - 10.0 /100 WBCs. The reference range was not used to interpret this result as normal/abnormal. NRBC x10^3 (test code = 8860901659) See_Comment [Automated messa ge] The system which generated this result transmitted reference range: 10*3/?L. The reference range was not used to interpret this result as normal/abnormal. GRAN MAT (NEUT) % (test code = 770-8) 57.6 % IMM GRAN % (test code = 7759410804) 4.60 % LYMPH % (test code = 736-9) 27.4 % MONO % (test code = 5905-5) 9.9 % EOS % (test code = 713-8) 0.2 % BASO % (test code = 706-2) 0.3 % GRAN MAT x10^3(ANC) (test code = 6146286774) 3.79 10*3/uL 1.88-7.09 IMM GRAN x10^3 (test code = 5734260335) 0.30 10*3/uL 0.00-0.06 H LYMPH x10^3 (test code = 731-0) 1.80 10*3/uL 1.32-3.29 MONO x10^3 (test code = 742-7) 0.65 10*3/uL 0.33-0.92 EOS x10^3 (test code = 711-2) <0.03 0.03-0.39 L BASO x10^3 (test code = 704-7) <0.03 0.01-0.07 SCHISTOCYTES (test code = 800-3) 1+ A BANDS (test code = 8937742077) Increased A Lab Interpretation (test code = 10690-2) Abnormal [facility]2021-[facility]-26 11:15:12* Test Item Value Reference Range Interpretation Comme nts MAGNESIUM (test code = 6741738554) 2.1 mg/dL 1.7-2.4 Lab Interpretation (test cod e = 23885-5) Normal [facility] (NA, K, CL, CO2, GLUCOSE, BUN, CREATININE, CA)2020-12-07 11:15:11* Test Item Value Reference Range Interpretation Comme nts NA (test code = 4736022861) 133 mmol/L 135-145 L K (test code = 0522061839) 3.2 mmol/L 3.5-5.0 L CL (test code = 0828113031) 106 mmol/L 98-108 CO2 TOTAL (test code = 6003397085) 18 mmol/L 23-31 L AGAP (test code = 8127834926) 2-16 BUN (test code = 1154860438) 9 mg/dL 7-23 GLUCOSE (test code = 8709952460) 106 mg/dL 70-110 CREATININE (test code = 6154987034) 0.64 mg/dL 0.50-1.04 CALCIUM (test code = 6634123560) 8.2 mg/dL 8.6-10.6 L eGFR (test code = 2412225648) mL/min/1.73m2 ANTHONY (test code = ANTHONY) Association [...] imaging tests). Lab Interpretation (test code = 14392-7) Abnormal [facility] (NA, K, CL, CO2, GLUCOSE, BUN, CREATININE, CA)2020-12-07 03:01:05* Test Item Value Reference Range Interpretation Comme nts NA (test code = 2674175294) 130 mmol/L 135-145 L K (test code = 3322000701) 3.4 mmol/L 3.5-5.0 L CL (test code = 7851402042) 105 mmol/L 98-108 CO2 TOTAL (test code = 2361932228) 20 mmol/L 23-31 L AGAP (test code = 0218309396) 2-16 BUN (test code = 8706361639) 10 mg/dL 7-23 GLUCOSE (test code = 9313119971) 117 mg/dL 70-110 H CREATININE (test code = 9136048425) 0.69 mg/dL 0.50-1.04 CALCIUM (test code = 3372299333) 7.9 mg/dL 8.6-10.6 L eGFR (test code = 2992339630) mL/min/1.73m2 ANTHONY (test code = ANTHONY) Association [...] imaging tests). Lab Interpretation (test code = 36107-5) Abnormal [facility] Metabolic Panel (NA, K, CL, CO2, GLUCOSE, BUN, CREATININE, CA)2020-12-06 17:09:25* Test Item Value Reference Range Interpretation Comme nts NA (test code = 9178019035) 126 mmol/L 135-145 L K (test code = 3964083962) 2.9 mmol/L 3.5-5.0 LL CL (test code = 9111805915) 104 mmol/L 98-108 CO2 TOTAL (test code = 6647451691) 13 mmol/L 23-31 L AGAP (test code = 0148279865) 2-16 BUN (test code = 0491397704) 11 mg/dL 7-23 GLUCOSE (test code = 4770882791) 147 mg/dL 70-110 H CREATININE (test code = 1556929205) 0.80 mg/dL 0.50-1.04 CALCIUM (test code = 9841187496) 7.9 mg/dL 8.6-10.6 L eGFR (test code = 3153804583) mL/min/1.73m2 ANTHONY (test code = ANTHONY) Association [...] imaging tests). Lab Interpretation (test code = 08354-3) Abnormal [facility] CampusMagnesium [id number] 17:05:09* Test Item Value Reference Range Interpretation Comme nts MAGNESIUM (test code = 8429843385) 2.3 mg/dL 1.7-2.4 Lab Interpretation (test cod e = 15657-0) Normal [facility] with [id number] 16:52:56* Test Item Value Reference Range Interpretation Comme nts WBC (test code = 6690-2) See_Comment [Automated messa ge] The system which generated this result transmitted reference range: 4.30 - 11.10 10*3/?L. The reference range was not used to interpret this result as normal/abnormal. RBC (test code = 789-8) See_Comment L [Automated messa ge] The system which generated this result transmitted reference range: 3.93 - 5.25 10*6/?L. The reference range was not used to interpret this result as normal/abnormal. HGB (test code = 718-7) 9.7 g/dL 11.6-15.0 L HCT (test code = 4544-3) 27.9 % 35.7-45.2 L MCV (test code = 787-2) 92.7 fL 80.6-95.5 MCH (test code = 785-6) 32.2 pg 25.9-32.8 MCHC (test code = 786-4) 34.8 g/dL 31.6-35.1 RDW-SD (test code = 99486-5) 50.9 fL 39.0-49.9 H RDW-CV (test code = 788-0) 15.0 % 12.0-15.5 PLT (test code = 777-3) See_Comment [Automated messa ge] The system which generated this result transmitted reference range: 166 - 358 10*3/?L. The reference range was not used to interpret this result as normal/abnormal. MPV (test code = 89418-4) 11.4 fL 9.5-12.9 NRBC/100 WBC (test code = 6548926396) See_Comment [Automated me ssage] The system which generated this result transmitted reference range: 0.0 - 10.0 /100 WBCs. The reference range was not used to interpret this result as normal/abnormal. NRBC x10^3 (test code = 4234108963) <0.01 See_Comment [Automated messa ge] The system which generated this result transmitted reference range: 10*3/?L. The reference range was not used to interpret this result as normal/abnormal. GRAN MAT (NEUT) % (test code = 770-8) 53.9 % IMM GRAN % (test code = 5999181555) 3.10 % LYMPH % (test code = 736-9) 30.8 % MONO % (test code = 5905-5) 11.3 % EOS % (test code = 713-8) 0.3 % BASO % (test code = 706-2) 0.6 % GRAN MAT x10^3(ANC) (test code = 4298561079) 3.48 10*3/uL 1.88-7.09 IMM GRAN x10^3 (test code = 0567463486) 0.20 10*3/uL 0.00-0.06 H LYMPH x10^3 (test code = 731-0) 1.99 10*3/uL 1.32-3.29 MONO x10^3 (test code = 742-7) 0.73 10*3/uL 0.33-0.92 EOS x10^3 (test code = 711-2) <0.03 0.03-0.39 L BASO x10^3 (test code = 704-7) 0.04 10*3/uL 0.01-0.07 BANDS (test code = 0944758806) Increased A Lab Interpretation (test code = 37266-2) [facility]normal [facility] 00:30:48* Test Item Value Reference Range Interpretation Comme nts MAGNESIUM (test code = 0677659844) 1.4 mg/dL 1.7-2.4 L Lab Interpretation (test cod e = 41817-1) Abnormal [facility] METABOLIC PANEL (NA, K, CL, CO2, GLUCOSE, BUN, CREATININE, CA)2020-12-06 00:00:55* Test Item Value Reference Range Interpretation Comme nts NA (test code = 3692599755) 135 mmol/L 135-145 K (test code = 6704529223) 2.3 mmol/L 3.5-5.0 LL CL (test code = 6979540504) 116 mmol/L 98-108 H CO2 TOTAL (test code = 2292455072) 14 mmol/L 23-31 L AGAP (test code = 6075140647) 2-16 BUN (test code = 2616629326) 16 mg/dL 7-23 GLUCOSE (test code = 3866166931) 98 mg/dL 70-110 CREATININE (test code = 3943840648) 0.85 mg/dL 0.50-1.04 CALCIUM (test code = 5066211058) 5.7 mg/dL 8.6-10.6 LL eGFR (test code = 9450333663) mL/min/1.73m2 ANTHOYN (test code = ANTHONY) Association of Glomerular [...] imaging tests). Lab Interpretation (test code = 12085-2) Abnormal [facility] CampusTHYROID STIMULATING [id number] 20:54:58 * Test Item Value Reference Range Interpretation Comme nts TSH (test code = 0665067132) See_Comment [Automated messa ge] The system which generated this result transmitted reference range: 0.45 - 4.70 mIU/L. The reference range was not used to interpret this result as normal/abnormal. Lab Interpretation (test code = 08109-3) Normal [facility] CampusLIPASE2021-10-24 20:23:21* Test Item Value Reference Range Interpretation Comme nts LIPASE (test code = 9866482574) 130 U/L 0-220 Lab Interpretation (test cod e = 78163-3) Normal [facility]CBC WITH [id number] 19:46:50* Test Item Value Reference Range Interpretation Comme nts WBC (test code = 6690-2) See_Comment [Automated message] The system which generated this result transmitted reference range: 4.30 - 11.10 10*3/?L. The reference range was not used to interpret this result as normal/abnormal. RBC (test code = 789-8) See_Comment L [Automated message] The system which generated this result transmitted reference range: 3.93 - 5.25 10*6/?L. The reference range was not used to interpret this result as normal/abnormal. HGB (test code = 718-7) 10.4 g/dL 11.6-15.0 L HCT (test code = 4544-3) 29.3 % 35.7-45.2 L MCV (test code = 787-2) 93.0 fL 80.6-95.5 MCH (test code = 785-6) 33.0 pg 25.9-32.8 H MCHC (test code = 786-4) 35.5 g/dL 31.6-35.1 H RDW-SD (test code = 95939-3) 49.2 fL 39.0-49.9 RDW-CV (test code = 788-0) 14.8 % 12.0-15.5 PLT (test code = 777-3) See_Comment [Automated message] The system which generated this result transmitted reference range: 166 - 358 10*3/?L. The reference range was not used to interpret this result as normal/abnormal. MPV (test code = 02456-4) 11.9 fL 9.5-12.9 NRBC/100 WBC (test code = 6786092822) See_Comment [Automated message] The system which generated this result transmitted reference range: 0.0 - 10.0 /100 WBCs. The reference range was not used to interpret this result as normal/abnormal. NRBC x10^3 (test code = 0093088425) See_Comment [Automated message] The system which generated this result transmitted reference range: 10*3/?L. The reference range was not used to interpret this result as normal/abnormal. GRAN MAT (NEUT) % (test code = 770-8) 45.3 % IMM GRAN % (test code = 6411626829) 1.60 % LYMPH % (test code = 736-9) 41.5 % MONO % (test code = 5905-5) 10.4 % EOS % (test code = 713-8) 0.6 % BASO % (test code = 706-2) 0.6 % GRAN MAT x10^3(ANC) (test code = 2608625646) 3.18 10*3/uL 1.88-7.09 IMM GRAN x10^3 (test code = 5380546000) 0.11 10*3/uL 0.00-0.06 H LYMPH x10^3 (test code = 731-0) 2.91 10*3/uL 1.32-3.29 MONO x10^3 (test code = 742-7) 0.73 10*3/uL 0.33-0.92 EOS x10^3 (test code = 711-2) 0.04 10*3/uL 0.03-0.39 BASO x10^3 (test code = 704-7) 0.04 10*3/uL 0.01-0.07 ROULEAUX (test code = 7797-4) Present See_Comment A [Automated message] The system which generated this result transmitted reference range: (none). The reference range was not used to interpret this result as normal/abnormal. SCHISTOCYTES (test code = 800-3) 1+ A BANDS (test code = 0715522374) MARKED INCREASED A LG GRAN LYMPHS (test code = 4480535473) Rare Rare REACT LYMPHS (test code = 0592483927) Rare TOXIC CHANGES (test code = 803-7) Present A Lab Interpretation (test code = 40523-1) [facility]normal [facility]SE(AGE >30DAYS)2020-12-05 19:44:00* Test Item Value Reference Range Interpretation Comme nts POCT Glu (age>30days) (test code = 3342) 154 mg/dL 70-110 A Lab Interpretation (test cod e = 94923-4) Abnormal [facility] CampusTroponin Q0353-16-20 19:21:17* Test Item Value Reference Range Interpretation Comments TROPONIN I (test code = 5954669135) 0.008 ng/mL See_Comment [Automated message] The system which generated this result transmitted reference range: <=0.034. The reference range was not used to interpret this result as normal/abnormal. ANTHONY (test code = ANTHONY) Reference (Normal) Range (defined by the 99th percentile reference [...] to patient's use of biotin. Lab Interpretation (test code = 52914-8) Normal [facility] CampusCOMP[facility] METABOLIC PANEL (78332)2020-12-05 19:10:58* Test Item Value Reference Range Interpretation Comme nts NA (test code = 9385348326) 122 mmol/L 135-145 L K (test code = 4792944689) 3.2 mmol/L 3.5-5.0 L CL (test code = 5674782159) 97 mmol/L 98-108 L CO2 TOTAL (test code = 9698217655) 16 mmol/L 23-31 L AGAP (test code = 2379770227) 2-16 BUN (test code = 3899510904) 21 mg/dL 7-23 GLUCOSE (test code = 8977280181) 154 mg/dL 70-110 H CREATININE (test code = 6174222029) 1.40 mg/dL 0.50-1.04 H TOTAL BILI (test code = 5710125576) 0.6 mg/dL 0.1-1.1 CALCIUM (test code = 6270340095) 8.6 mg/dL 8.6-10.6 T PROTEIN (test code = 1592197321) 5.7 g/dL 6.3-8.2 L ALBUMIN (test code = 0419813392) 3.0 g/dL 3.5-5.0 L ALK PHOS (test code = 8053803380) 187 U/L 34-122 H ALTv (test code = 1742-6) 43 U/L 5-35 H AST(SGOT) (test code = 5089054928) 66 U/L 13-40 H eGFR (test code = 9728388295) mL/min/1.73m2 ANTHONY (test code = ANTHONY) Association [...] imaging tests). Lab Interpretation (test code = 61729-6) [facility]normal [facility]:10:58* Test Item Value Reference Range Interpretation Comme nts MAGNESIUM (test code = 1685198722) 1.8 mg/dL 1.7-2.4 Lab Interpretation (test cod e = 41159-7) [facility] ZDLG8226-11-04 18:53:00* Test Item Value Reference Range Interpretation Comme nts POCT PREG (test code = 1605) negative POCT PREG LOT # (test code = 3575) [id number] POCT PREG TEST DATE ( test code = 3576) 2022-02-11 Lab Interpretation (test cod e = 21053-1) Normal [facility]SSA(RO)2020-08-10 17:06:47* Test Item Value Reference Range Interpretation Comme nts ANTI-SSA(RO) (test code = 8717750638) Negative Negative ANTHONY (test code = ANTHONY) Positive - Antibod y detected.Negative - No antibody detected. Lab Interpretation (test code = 16488-2) Normal [facility]SSB(LA)2020-08-10 17:06:47* Test Item Value Reference Range Interpretation Comme nts Anti-SSB(LA) (test code = 0530641358) Negative Negative ANTHONY (test code = ANTHONY) Positive - Antibod y detected.Negative - No antibody detected. Lab Interpretation (test code = 70688-4) Normal [facility] CampusRHEUMATOID [id number] 14:42:16* Test Item Value Reference Range Interpretation Comme nts RF (test code = 0942127985) <20 See_Comment [Automated [employer]] The system which generated this result transmitted reference range: <20 IU/mL. The reference range was not used to interpret this result as normal/abnormal. Lab Interpretation (test code = 00055-6) Normal [facility] CampusC-REACTIVE [id number] 14:41:04* Test Item Value Reference Range Interpretation Comme nts CRP (test code = 5977119657) 0.3 mg/dL <0.8 Lab Interpretation (test cod e = 27410-0) Normal [facility] CampusADC OR LEXX ONLY - [id number] 09:50:30* Test Item Value Reference Range Interpretation Comme nts RPR (Qualitative) (test code = 43151-3) Nonreactive Nonreactive Lab Interpretation (test cod e = 13531-1) Normal [facility] CampusHIV 1/2 AG-AB WITH [id number] 20:09:42* Test Item Value Reference Range Interpretation Comme nts HIV Semi-quantitative (test code = 98390-6) Negative Negative ANTHONY (test code = ANTHONY) Non-reactive for HIV-1 antigen and HIV-1/HIV-2 antibodies. ?No laboratory evidence of HIV infection. ?Repeat in 2-4 weeks if acute HIV infection is suspected. [facility] CampusSEDIMENTATION [id number] 19:49:09* Test Item Value Reference Range Interpretation Comme nts ESR (test code = 0614147628) See_Comment H [Automated messa ge] The system which generated this result transmitted reference range: 0 - 20 mm/HR. The reference range was not used to interpret this result as normal/abnormal. Lab Interpretation (test code = 96814-5) Abnormal [facility] CampusCOM. METABOLIC PANEL (90916)2020-08-09 19:29:16* Test Item Value Reference Range Interpretation Comme nts NA (test code = 2233622798) 133 mmol/L 135-145 L K (test code = 0720298862) 4.4 mmol/L 3.5-5.0 CL (test code = 9059116329) 97 mmol/L 98-108 L CO2 TOTAL (test code = 8888327533) 24 mmol/L 23-31 AGAP (test code = 2837510065) 2-16 BUN (test code = 6635264155) 21 mg/dL 7-23 GLUCOSE (test code = 5409708509) 154 mg/dL 70-110 H CREATININE (test code = 4552473676) 0.86 mg/dL 0.50-1.04 TOTAL BILI (test code = 9420750131) 0.5 mg/dL 0.1-1.1 CALCIUM (test code = 4823122289) 10.0 mg/dL 8.6-10.6 T PROTEIN (test code = 5450152064) 8.0 g/dL 6.3-8.2 ALBUMIN (test code = 4052782183) 5.1 g/dL 3.5-5.0 H ALK PHOS (test code = 5387766213) 85 U/L 34-122 ALTv (test code = 1742-6) 36 U/L 5-35 H AST(SGOT) (test code = 3157047260) 24 U/L 13-40 eGFR (test code = 7397889189) mL/min/1.73m2 ANTHONY (test code = ANTHONY) Association [...] imaging tests). Lab Interpretation (test code = 83174-1) Abnormal [facility] FmynjsNKOCELXGCR2156-64-06 18:21:29* Test Item Value Reference Range Interpretation Comme nts APPEARANCE (test code = 6796919843) Clear Clear COLOR (test code = 9217010623) Yellow Yellow PH (test code = 7100783713) 4.8-8.0 SP GRAVITY (test code = 9264578145) 1.003-1.030 GLU U QUAL (test code = 2536050277) Normal Normal BLOOD (test code = 6799895921) Negative Negative KETONES (test code = 6415454213) Negative Negative PROTEIN (test code = 2887-8) Negative Negative UROBILIN (test code = 0160354514) Normal Normal BILIRUBIN (test code = 1774607444) Negative Negative NITRITE (test code = 3890347296) Negative Negative LEUK MURRAY (test code = 6223301818) Negative Negative RBC/HPF (test code = 5497419884) <1 See_Comment [Automated messa ge] The system which generated this result transmitted reference range: 0 - 3 HPF. The reference range was not used to interpret this result as normal/abnormal. WBC/HPF (test code = 3723443910) See_Comment [Automated messa ge] The system which generated this result transmitted reference range: 0 - 5 HPF. The reference range was not used to interpret this result as normal/abnormal. BACTERIA (test code = 9821770726) Negative Negative MUCOUS (test code = 5423195361) Slight Negative LPF A SQ EPITH (test code = 5294666609) <1 HPF Lab Interpretation (test code = 08800-0) Abnormal [facility] CampusURINALYSIS2021-06-28 18:21:29* Test Item Value Reference Range Interpretation Comme nts APPEARANCE (test code = 4798776883) Clear Clear COLOR (test code = 2936255867) Yellow Yellow PH (test code = 8789652000) 4.8-8.0 SP GRAVITY (test code = 3307547198) 1.003-1.030 GLU U QUAL (test code = 5915757804) Normal Normal BLOOD (test code = 3392635450) Negative Negative KETONES (test code = 2900558841) Negative Negative PROTEIN (test code = 2887-8) Negative Negative UROBILIN (test code = 2348321122) Normal Normal BILIRUBIN (test code = 0189690635) Negative Negative NITRITE (test code = 1798138944) Negative Negative LEUK MURRAY (test code = 4570584288) Negative Negative RBC/HPF (test code = 1977929524) <1 See_Comment [Automated messa ge] The system which generated this result transmitted reference range: 0 - 3 HPF. The reference range was not used to interpret this result as normal/abnormal. WBC/HPF (test code = 8409119778) See_Comment [Automated messa ge] The system which generated this result transmitted reference range: 0 - 5 HPF. The reference range was not used to interpret this result as normal/abnormal. BACTERIA (test code = 9914384428) Negative Negative MUCOUS (test code = 6215275507) Slight Negative LPF A SQ EPITH (test code = 5279211992) <1 HPF Lab Interpretation (test code = 48251-2) Abnormal [facility] WITH [id number] 17:36:57* Test Item Value Reference Range Interpretation Comme nts WBC (test code = 6690-2) See_Comment [Automated messa ge] The system which generated this result transmitted reference range: 4.30 - 11.10 10*3/?L. The reference range was not used to interpret this result as normal/abnormal. RBC (test code = 789-8) See_Comment L [Automated messa ge] The system which generated this result transmitted reference range: 3.93 - 5.25 10*6/?L. The reference range was not used to interpret this result as normal/abnormal. HGB (test code = 718-7) 11.6 g/dL 11.6-15.0 HCT (test code = 4544-3) 34.9 % 35.7-45.2 L MCV (test code = 787-2) 97.5 fL 80.6-95.5 H MCH (test code = 785-6) 32.4 pg 25.9-32.8 MCHC (test code = 786-4) 33.2 g/dL 31.6-35.1 RDW-SD (test code = 61441-7) 47.8 fL 39.0-49.9 RDW-CV (test code = 788-0) 13.4 % 12.0-15.5 PLT (test code = 777-3) See_Comment [Automated messa ge] The system which generated this result transmitted reference range: 166 - 358 10*3/?L. The reference range was not used to interpret this result as normal/abnormal. MPV (test code = 07698-0) 9.4 fL 9.5-12.9 L NRBC/100 WBC (test code = 1033390299) See_Comment [Automated [employer] ssage] The system which generated this result transmitted reference range: 0.0 - 10.0 /100 WBCs. The reference range was not used to interpret this result as normal/abnormal. NRBC x10^3 (test code = 2710772642) <0.01 See_Comment [Automated messa ge] The system which generated this result transmitted reference range: 10*3/?L. The reference range was not used to interpret this result as normal/abnormal. GRAN MAT (NEUT) % (test code = 770-8) 80.8 % IMM GRAN % (test code = 9904260316) 1.90 % LYMPH % (test code = 736-9) 15.0 % MONO % (test code = 5905-5) 2.1 % EOS % (test code = 713-8) 0.1 % BASO % (test code = 706-2) 0.1 % GRAN MAT x10^3(ANC) (test code = 0730890766) 6.79 10*3/uL 1.88-7.09 IMM GRAN x10^3 (test code = 3184006117) 0.16 10*3/uL 0.00-0.06 H LYMPH x10^3 (test code = 731-0) 1.26 10*3/uL 1.32-3.29 L MONO x10^3 (test code = 742-7) 0.18 10*3/uL 0.33-0.92 L EOS x10^3 (test code = 711-2) <0.03 0.03-0.39 L BASO x10^3 (test code = 704-7) <0.03 0.01-0.07 Lab Interpretation (test code = 17467-0) Abnormal [facility] WITH [id number] 17:36:57* Test Item Value Reference Range Interpretation Comme nts WBC (test code = 6690-2) See_Comment [Automated messa ge] The system which generated this result transmitted reference range: 4.30 - 11.10 10*3/?L. The reference range was not used to interpret this result as normal/abnormal. RBC (test code = 789-8) See_Comment L [Automated messa ge] The system which generated this result transmitted reference range: 3.93 - 5.25 10*6/?L. The reference range was not used to interpret this result as normal/abnormal. HGB (test code = 718-7) 11.6 g/dL 11.6-15.0 HCT (test code = 4544-3) 34.9 % 35.7-45.2 L MCV (test code = 787-2) 97.5 fL 80.6-95.5 H MCH (test code = 785-6) 32.4 pg 25.9-32.8 MCHC (test code = 786-4) 33.2 g/dL 31.6-35.1 RDW-SD (test code = 01264-1) 47.8 fL 39.0-49.9 RDW-CV (test code = 788-0) 13.4 % 12.0-15.5 PLT (test code = 777-3) See_Comment [Automated messa ge] The system which generated this result transmitted reference range: 166 - 358 10*3/?L. The reference range was not used to interpret this result as normal/abnormal. MPV (test code = 68088-6) 9.4 fL 9.5-12.9 L NRBC/100 WBC (test code = 3430263767) See_Comment [Automated [employer] ssage] The system which generated this result transmitted reference range: 0.0 - 10.0 /100 WBCs. The reference range was not used to interpret this result as normal/abnormal. NRBC x10^3 (test code = 7470528861) <0.01 See_Comment [Automated messa ge] The system which generated this result transmitted reference range: 10*3/?L. The reference range was not used to interpret this result as normal/abnormal. GRAN MAT (NEUT) % (test code = 770-8) 80.8 % IMM GRAN % (test code = 4733703911) 1.90 % LYMPH % (test code = 736-9) 15.0 % MONO % (test code = 5905-5) 2.1 % EOS % (test code = 713-8) 0.1 % BASO % (test code = 706-2) 0.1 % GRAN MAT x10^3(ANC) (test code = 9961427868) 6.79 10*3/uL 1.88-7.09 IMM GRAN x10^3 (test code = 9517326708) 0.16 10*3/uL 0.00-0.06 H LYMPH x10^3 (test code = 731-0) 1.26 10*3/uL 1.32-3.29 L MONO x10^3 (test code = 742-7) 0.18 10*3/uL 0.33-0.92 L EOS x10^3 (test code = 711-2) <0.03 0.03-0.39 L BASO x10^3 (test code = 704-7) <0.03 0.01-0.07 Lab Interpretation (test code = 39606-6) Abnormal [facility] CampusMENINGITIS/ENCEPHALITIS PANEL BY [id number] 22:27:23* Test Item Value Reference Range Interpretation Comme nts Escherichia coli K1 (test code = 30264-2) Negative Negative, Indeterminate, See Comment Haemophilus influenzae (test code = 63359-4) Negative Negative, Indeterminate, See Comment Listeria monocytogenes (test code = 08805-8) Negative Negative, Indeterminate, See Comment Neisseria meningitidis (encapsulated) (test code = 67534-9) Negative Negative, Indeterminate, See Comment Streptococcus agalactiae (test code = 74909-3) Negative Negative, Indeterminate, See Comment Streptococcus pneumoniae (test code = 47488-8) Negative Negative, Indeterminate, See Comment Cytomegalovirus (test code = 59462-7) Negative Negative, Indeterminate, See Comment Enterovirus (test code = 52913-9) Negative Negative, Indeterminate, See Comment Herpes simplex virus 1 (test code = 86185-9) Negative Negative, Indeterminate, See Comment Herpes simplex virus 2 (test code = 81433-7) Negative Negative, Indeterminate, See Comment Human herpesvirus 6 (test code = 42985-1) Negative Negative, Indeterminate, See Comment Human parechovirus (test code = 11922-9) Negative Negative, Indeterminate, See Comment Varicella zoster virus (test code = 24323-8) Negative Negative, Indeterminate, See Comment Cryptococcus neoformans/gattii (test code = 68886-4) Negative Negative, Indeterminate, See Comment ANTHONY (test code = ANTHONY) Negative:A negativ e result does not rule-out infection. ?This assay does not test for all potential infectious agents. Positive:A positive test result does not necessarily indicate the presence of viable organism. ? Lab Interpretation (test code = 48492-6) Normal [facility] FLUID DIRECT [id number] 21:52:07* Test Item Value Reference Range Interpretation Comme nts BF COLOR (test code = 7082952109) Clear BF WBC Count (test code = 8641705485) See_Comment [Automated me ssage] The system which generated this result transmitted reference range: 0 - 5 /?L. The reference range was not used to interpret this result as normal/abnormal. BF RBC Count (test code = 0867377487) See_Comment [Automated me ssage] The system which generated this result transmitted reference range: /?L. The reference range was not used to interpret this result as normal/abnormal. [facility] FLUID MANUAL [id number] 21:52:07BF SEGSComment: Less than 100 cells counted due to low WBC; Differential is not reported in percent. 10 cells counted: 1 Neutrophils, 9 Lymphocytes, 0 Macrophages [facility]#CELS CNTDUTMB LABORATORY SERVICESUnBoys Town National Research HospitalROSPINAL FLUID [id number] 20:58:36* Test Item Value Reference Range Interpretation Comme nts T. PRO CSF (test code = 4415247251) 68.0 mg/dL 15.0-45.0 H UNSPUN BODY FLUID COLOR (test code = 7813865655) Light Red UNSPUN BODY FLUID CLARITY (test code = 9441673529) Cloudy SPUN BODY FLUID COLOR (test code = 8085314634) [place] SPUN BODY FLUID CLARITY (test code = 1904337973) Clear Sediment (test code = 8450149857) The sediment volume is <0.1 mLs of the total fluid volume of 5cc and its color is red. Lab Interpretation (test code = 48209-1) [facility] [id number] 20:58:25 * Test Item Value Reference Range Interpretation Comme nts GLU CSF (test code = 1200593650) 74 mg/dL 50-80 UNSPUN BODY FLUID COLOR (test code = 2485799171) Light Red UNSPUN BODY FLUID CLARITY (test code = 4382480157) Cloudy SPUN BODY FLUID COLOR (test code = 6386423305) [place] SPUN BODY FLUID CLARITY (test code = 7306634867) Clear Sediment (test code = 7005861989) The sediment vol ume is <0.1 mLs of the total fluid volume of 5cc and its color is red. [facility] CampusXR CHEST 1 [id number] 15:19:43No acute cardiopulmonary process. Preliminary Report Dictated by Resident: Francisco Reyes MD., have reviewed this study and agree with theabove report.PROCEDURE: XR CHEST 1VW CLINICAL INDICATION: leukocytosis TECHNIQUE: Frontal chest radiograph was obtained. COMPARISON: 06/26/2020 FINDINGS: The lungs are clear. No pleural effusion or pneumothorax is seen. The heart is normal in size. No acute bony abnormality is noted. [facility], Radiant Results Inft User - 07/14/2020 10:20 AM CDT PROCEDURE: XR CHEST 1 VWCLINICAL INDICATION: leukocytosis TECHNIQUE: Frontal chest radiograph was obtained.COMPARISON: 06/26/2020FINDINGS:The lungs are clear. No pleural effusion or pneumothorax is seen. The heart is normal in size.No acute bony abnormality is noted.IMPRESSIONNo acute cardiopulmonary process.Preliminary Report Dictated by Resident: Francisco Laughlin MD., have reviewed this study and agree with theabove report. [facility] CampusPOCT GLUCOSE (AUTOMATED)2020-07-14 15:07:20* Test Item Value Reference Range Interpretation Comme nts POCT GLU (test code = 5194727133) 98 mg/dL 70-110 Lab Interpretation (test cod e = 34032-5) Normal [facility] CampusC-REACTIVE [id number] 14:51:17* Test Item Value Reference Range Interpretation Comme nts CRP (test code = 8318809386) 0.2 mg/dL <0.8 Lab Interpretation (test cod e = 90095-4) Normal [facility] CampusMAGNESIUM2021-06-02 14:40:38* Test Item Value Reference Range Interpretation Comme nts MAGNESIUM (test code = 2699213722) 2.1 mg/dL 1.7-2.4 Lab Interpretation (test cod e = 71000-2) Normal [facility] CampusPhosphorus [id number] 13:50:50* Test Item Value Reference Range Interpretation Comme nts PHOSPHORUS (test code = 4378561115) 3.1 mg/dL 2.5-5.0 Lab Interpretation (test cod e = 80140-2) Normal [facility] Metabolic Panel (NA, K, CL, CO2, GLUCOSE, BUN, CREATININE, CA)2020-07-14 12:41:09* Test Item Value Reference Range Interpretation Comme nts NA (test code = 0839536118) 136 mmol/L 135-145 K (test code = 8943273020) 4.3 mmol/L 3.5-5.0 CL (test code = 1450149158) 108 mmol/L 98-108 CO2 TOTAL (test code = 6443588205) 17 mmol/L 23-31 L AGAP (test code = 4937568157) 2-16 BUN (test code = 4407205965) 22 mg/dL 7-23 GLUCOSE (test code = 7004381023) 98 mg/dL 70-110 CREATININE (test code = 0669202067) 0.70 mg/dL 0.50-1.04 CALCIUM (test code = 2592954905) 9.4 mg/dL 8.6-10.6 eGFR (test code = 2689536191) mL/min/1.73m2 ANTHONY (test code = ANTHONY) Association [...] imaging tests). Lab Interpretation (test code = 41735-3) Abnormal [facility] CampusHepatic Function Panel (ALB, T.PRO, BILI T, BU/BC, ALT, AST, ALK PHOS)2020-07-14 12:41:09* Test Item Value Reference Range Interpretation Comme nts TOTAL BILI (test code = 8412731853) 0.3 mg/dL 0.1-1.1 BILI UNCON (test code = 4955959642) 0.1 mg/dL 0.1-1.1 BILI CONJ (test code = 0608536404) 0.0 mg/dL 0.0-0.3 T PROTEIN (test code = 6811747432) 7.6 g/dL 6.3-8.2 ALBUMIN (test code = 6065535109) 4.6 g/dL 3.5-5.0 ALK PHOS (test code = 6329900272) 120 U/L 34-122 ALTv (test code = 1742-6) 42 U/L 5-35 H AST(SGOT) (test code = 5823905989) 24 U/L 13-40 Lab Interpretation (test cod e = 38748-8) Abnormal [facility] CampusUrinalysis2021-06-02 10:22:07* Test Item Value Reference Range Interpretation Comme nts APPEARANCE (test code = 8406620646) Clear Clear COLOR (test code = 4566836699) Yellow Yellow PH (test code = 8222144840) 4.8-8.0 SP GRAVITY (test code = 5898031406) 1.003-1.030 GLU U QUAL (test code = 3626416180) Normal Normal BLOOD (test code = 7028335904) Negative Negative KETONES (test code = 2294641694) Negative Negative PROTEIN (test code = 2887-8) Negative Negative UROBILIN (test code = 0564808323) Normal Normal BILIRUBIN (test code = 4085807244) Negative Negative NITRITE (test code = 1036354493) Negative Negative LEUK MURRAY (test code = 0844422694) Negative Negative RBC/HPF (test code = 6816678666) See_Comment [Automated messa ge] The system which generated this result transmitted reference range: 0 - 3 HPF. The reference range was not used to interpret this result as normal/abnormal. WBC/HPF (test code = 0112830710) See_Comment [Automated [employer]] The system which generated this result transmitted reference range: 0 - 5 HPF. The reference range was not used to interpret this result as normal/abnormal. BACTERIA (test code = 2581536711) Negative Negative MUCOUS (test code = 7476181219) Slight Negative LPF A SQ EPITH (test code = 6247793500) See_Comment [Automated messa ge] The system which generated this result transmitted reference range: <=2 HPF. The reference range was not used to interpret this result as normal/abnormal. Lab Interpretation (test code = 50871-4) Abnormal [facility] CampusCOVID-19 (ID NOW RAPID TESTING)2020-07-14 09:45:51* Test Item Value Reference Range Interpretation Comme nts SARS-CoV-2 Rapid ID NOW (test code = 60025-5) Not Detected Not Detected ANTHONY (test code = ANTHONY) ID NOW COVID-19 As say is an isothermal nucleic acid amplification test intended for the qualitative detection of nucleic acid from SARS-CoV-2 viral RNA in nasopharyngeal (ACTIVITY THERAPY SPECIALIST) specimens. It is used under Emergency [...] patient testing if clinically indicated. Lab Interpretation (test code = 34073-8) Normal [facility] with Tlubizocupxa1420-31-44 02:07:47* Test Item Value Reference Range Interpretation Comme nts WBC (test code = 6690-2) See_Comment H [Automated message] The system which generated this result transmitted reference range: 4.30 - 11.10 10*3/?L. The reference range was not used to interpret this result as normal/abnormal. RBC (test code = 789-8) See_Comment L [Automated message] The system which generated this result transmitted reference range: 3.93 - 5.25 10*6/?L. The reference range was not used to interpret this result as normal/abnormal. HGB (test code = 718-7) 11.5 g/dL 11.6-15.0 L HCT (test code = 4544-3) 34.3 % 35.7-45.2 L MCV (test code = 787-2) 95.5 fL 80.6-95.5 MCH (test code = 785-6) 32.0 pg 25.9-32.8 MCHC (test code = 786-4) 33.5 g/dL 31.6-35.1 RDW-SD (test code = 94521-4) 47.8 fL 39.0-49.9 RDW-CV (test code = 788-0) 13.6 % 12.0-15.5 PLT (test code = 777-3) See_Comment H [Automated message] The system which generated this result transmitted reference range: 166 - 358 10*3/?L. The reference range was not used to interpret this result as normal/abnormal. MPV (test code = 54052-0) 10.6 fL 9.5-12.9 NRBC/100 WBC (test code = 8180227799) See_Comment [Automated message] The system which generated this result transmitted reference range: 0.0 - 10.0 /100 WBCs. The reference range was not used to interpret this result as normal/abnormal. NRBC x10^3 (test code = 8420966799) See_Comment [Automated message] The system which generated this result transmitted reference range: 10*3/?L. The reference range was not used to interpret this result as normal/abnormal. GRAN MAT (NEUT) % (test code = 770-8) 70.5 % IMM GRAN % (test code = 3979731911) 1.60 % LYMPH % (test code = 736-9) 20.8 % MONO % (test code = 5905-5) 6.8 % EOS % (test code = 713-8) 0.1 % BASO % (test code = 706-2) 0.2 % GRAN MAT x10^3(ANC) (test code = 4363167295) 12.19 10*3/uL 1.88-7.09 H IMM GRAN x10^3 (test code = 4306292712) 0.27 10*3/uL 0.00-0.06 H LYMPH x10^3 (test code = 731-0) 3.58 10*3/uL 1.32-3.29 H MONO x10^3 (test code = 742-7) 1.17 10*3/uL 0.33-0.92 H EOS x10^3 (test code = 711-2) <0.03 0.03-0.39 L BASO x10^3 (test code = 704-7) 0.03 10*3/uL 0.01-0.07 Lab Interpretation (test code = 40464-9) Abnormal [facility] CampusSEDIMENTATION LCBT8410-52-91 02:02:09* Test Item Value Reference Range Interpretation Comme nts ESR (test code = 2524797081) See_Comment H [Automated messa ge] The system which generated this result transmitted reference range: 0 - 20 mm/HR. The reference range was not used to interpret this result as normal/abnormal. Lab Interpretation (test code = 23625-5) Abnormal [facility] WITH UAPG7181-08-74 03:30:13* Test Item Value Reference Range Interpretation Comme nts WBC (test code = 6690-2) See_Comment [Automated messa ge] The system which generated this result transmitted reference range: 4.30 - 11.10 10*3/?L. The reference range was not used to interpret this result as normal/abnormal. RBC (test code = 789-8) See_Comment L [Automated messa ge] The system which generated this result transmitted reference range: 3.93 - 5.25 10*6/?L. The reference range was not used to interpret this result as normal/abnormal. HGB (test code = 718-7) 11.0 g/dL 11.6-15.0 L HCT (test code = 4544-3) 33.1 % 35.7-45.2 L MCV (test code = 787-2) 97.1 fL 80.6-95.5 H MCH (test code = 785-6) 32.3 pg 25.9-32.8 MCHC (test code = 786-4) 33.2 g/dL 31.6-35.1 RDW-SD (test code = 76718-3) 48.1 fL 39.0-49.9 RDW-CV (test code = 788-0) 13.3 % 12.0-15.5 PLT (test code = 777-3) See_Comment [Automated messa ge] The system which generated this result transmitted reference range: 166 - 358 10*3/?L. The reference range was not used to interpret this result as normal/abnormal. MPV (test code = 91119-1) 10.4 fL 9.5-12.9 NRBC/100 WBC (test code = 3232015897) See_Comment [Automated [employer] ssage] The system which generated this result transmitted reference range: 0.0 - 10.0 /100 WBCs. The reference range was not used to interpret this result as normal/abnormal. NRBC x10^3 (test code = 8386578635) <0.01 See_Comment [Automated messa ge] The system which generated this result transmitted reference range: 10*3/?L. The reference range was not used to interpret this result as normal/abnormal. GRAN MAT (NEUT) % (test code = 770-8) 44.6 % IMM GRAN % (test code = 6450587058) 0.80 % LYMPH % (test code = 736-9) 43.3 % MONO % (test code = 5905-5) 10.0 % EOS % (test code = 713-8) 0.9 % BASO % (test code = 706-2) 0.4 % GRAN MAT x10^3(ANC) (test code = 5829516598) 3.52 10*3/uL 1.88-7.09 IMM GRAN x10^3 (test code = 5793465328) 0.06 10*3/uL 0.00-0.06 LYMPH x10^3 (test code = 731-0) 3.42 10*3/uL 1.32-3.29 H MONO x10^3 (test code = 742-7) 0.79 10*3/uL 0.33-0.92 EOS x10^3 (test code = 711-2) 0.07 10*3/uL 0.03-0.39 BASO x10^3 (test code = 704-7) 0.03 10*3/uL 0.01-0.07 Lab Interpretation (test code = 18593-5) [facility]normal [facility] 19:38:39* Test Item Value Reference Range Interpretation Comme nts LIPASE (test code = 1900576468) 39 U/L 0-220 Lab Interpretation (test cod e = 83288-0) Normal [facility] METABOLIC PANEL (62686)2020-07-04 19:20:59* Test Item Value Reference Range Interpretation Comme nts NA (test code = 3556088818) 138 mmol/L 135-145 K (test code = 5417596290) 3.9 mmol/L 3.5-5.0 CL (test code = 2208344541) 101 mmol/L 98-108 CO2 TOTAL (test code = 0701065265) 27 mmol/L 23-31 AGAP (test code = 6239759854) 2-16 BUN (test code = 7991914110) 20 mg/dL 7-23 GLUCOSE (test code = 1052487822) 105 mg/dL 70-110 CREATININE (test code = 2216116162) 0.78 mg/dL 0.50-1.04 TOTAL BILI (test code = 1248491426) 0.4 mg/dL 0.1-1.1 CALCIUM (test code = 4486698166) 9.8 mg/dL 8.6-10.6 T PROTEIN (test code = 4140476789) 9.1 g/dL 6.3-8.2 H ALBUMIN (test code = 7890424833) 4.9 g/dL 3.5-5.0 ALK PHOS (test code = 0263419117) 171 U/L 34-122 H ALTv (test code = 1742-6) 136 U/L 5-35 H AST(SGOT) (test code = 7125398480) 82 U/L 13-40 H eGFR (test code = 2521234252) mL/min/1.73m2 ANTHONY (test code = ANTHONY) Association [...] imaging tests). Lab Interpretation (test code = 11108-2) Abnormal [facility] CejuxeHnhdqvfwfz3906-02-63 19:14:12* Test Item Value Reference Range Interpretation Comme nts APPEARANCE (test code = 5525718368) Clear Clear COLOR (test code = 6580083194) Yellow Yellow PH (test code = 5626432490) 4.8-8.0 SP GRAVITY (test code = 8920106731) 1.003-1.030 GLU U QUAL (test code = 0629079784) Normal Normal BLOOD (test code = 1972357582) Negative Negative KETONES (test code = 5448822772) Negative Negative PROTEIN (test code = 2887-8) Negative Negative UROBILIN (test code = 0929361353) Normal Normal BILIRUBIN (test code = 2946236756) Negative Negative NITRITE (test code = 3908654934) Negative Negative LEUK MURRAY (test code = 0139142318) 75/uL Negative A RBC/HPF (test code = 2368540791) See_Comment [Automated messa ge] The system which generated this result transmitted reference range: 0 - 3 HPF. The reference range was not used to interpret this result as normal/abnormal. WBC/HPF (test code = 4109314940) See_Comment H [Automated messa ge] The system which generated this result transmitted reference range: 0 - 5 HPF. The reference range was not used to interpret this result as normal/abnormal. BACTERIA (test code = 4786827429) Negative Negative MUCOUS (test code = 4211178334) Slight Negative LPF A SQ EPITH (test code = 4347222601) HPF Lab Interpretation (test code = 25845-9) Abnormal [facility] WITH [id number] 19:10:40* Test Item Value Reference Range Interpretation Comme nts WBC (test code = 6690-2) See_Comment [Automated messa ge] The system which generated this result transmitted reference range: 4.30 - 11.10 10*3/?L. The reference range was not used to interpret this result as normal/abnormal. RBC (test code = 789-8) See_Comment L [Automated messa ge] The system which generated this result transmitted reference range: 3.93 - 5.25 10*6/?L. The reference range was not used to interpret this result as normal/abnormal. HGB (test code = 718-7) 11.7 g/dL 11.6-15.0 HCT (test code = 4544-3) 35.2 % 35.7-45.2 L MCV (test code = 787-2) 97.2 fL 80.6-95.5 H MCH (test code = 785-6) 32.3 pg 25.9-32.8 MCHC (test code = 786-4) 33.2 g/dL 31.6-35.1 RDW-SD (test code = 40401-5) 47.2 fL 39.0-49.9 RDW-CV (test code = 788-0) 13.2 % 12.0-15.5 PLT (test code = 777-3) See_Comment [Automated messa ge] The system which generated this result transmitted reference range: 166 - 358 10*3/?L. The reference range was not used to interpret this result as normal/abnormal. MPV (test code = 14325-0) 10.5 fL 9.5-12.9 NRBC/100 WBC (test code = 2373583303) See_Comment [Automated [employer] ssage] The system which generated this result transmitted reference range: 0.0 - 10.0 /100 WBCs. The reference range was not used to interpret this result as normal/abnormal. NRBC x10^3 (test code = 6819174645) <0.01 See_Comment [Automated [employer]] The system which generated this result transmitted reference range: 10*3/?L. The reference range was not used to interpret this result as normal/abnormal. GRAN MAT (NEUT) % (test code = 770-8) 54.8 % IMM GRAN % (test code = 8680933123) 0.80 % LYMPH % (test code = 736-9) 32.1 % MONO % (test code = 5905-5) 10.3 % EOS % (test code = 713-8) 1.7 % BASO % (test code = 706-2) 0.3 % GRAN MAT x10^3(ANC) (test code = 8948932265) 3.46 10*3/uL 1.88-7.09 IMM GRAN x10^3 (test code = 0030299617) 0.05 10*3/uL 0.00-0.06 LYMPH x10^3 (test code = 731-0) 2.03 10*3/uL 1.32-3.29 MONO x10^3 (test code = 742-7) 0.65 10*3/uL 0.33-0.92 EOS x10^3 (test code = 711-2) 0.11 10*3/uL 0.03-0.39 BASO x10^3 (test code = 704-7) <0.03 0.01-0.07 Lab Interpretation (test code = 11984-3) Abnormal [facility] CampusTROPONIN [id number] 17:09:15* Test Item Value Reference Range Interpretation Comme nts TROPONIN I (test code = 8403206378) 0.000 ng/mL See_Comment [Automated message] The system which generated this result transmitted reference range: <=0.034. The reference range was not used to interpret this result as normal/abnormal. ANTHONY (test code = ANTHONY) Equal or Less than 0.034 ng/ml---Normal ?Note: Cardiac troponin begins to [...] patient's use of biotin. ? Lab Interpretation (test code = 26224-1) Normal [facility] CampusMR BRAIN WO [id number] 15:28:24Within the limitation of motion degrading image quality, no acuteintracranial abnormality, specifically no abnormal signal seen to suggestPRES. Preliminary Report Dictated by Resident: Aury Linton [...] 10:29 AM CDTMR BRAIN WO CONTRASTCOMPARISON: CT head dated 06/26/2020.HISTORY: Headache, intracranial hemorrhage suspected Neuro deficit, acute,stroke suspected worst headache, rule out PRES, hypertensive TECHNIQUE: Multi weighted multiplanarMRI of the head was done withoutcontrast on [...] reviewed this study and agree with theabove report.[facility] CampusCT ANGIOGRAM [id number] 01:50:14No large vessel occlusion or flow-limiting stenosis is identified in thehead and neck arteries. Follow-up with dedicated thyroid ultrasound on a non- emergent, outpatientbasis is recommended for further characterization. Preliminary Report Dictated by Resident: Ahmed S Castro I, Aury Blevins MD., have reviewed this study and agree with theabove report.EXAM: CT ANGIOGRAM HEAD, CT ANGIOGRAM NECKHISTORY: ?Headache, intracranial hemorrhage suspected TECHNIQUE: Axial CT imaging of the [place] and from the skull baseto the superior mediastinum was obtained during arterial phase after theintravenous administration of IV contrast. Coronal, sagittal, and MIPS wereconstructed. COMPARISON: Same day CT head FINDINGS: CTA HEAD: The PICA origin is visualized bilaterally. The basilar arteryis normal incaliber. Common origin of the left superior cerebellar and KAYAK MAKER is noted.The superior cerebellar arteries are patent. The posterior cerebralarteries are patent. A right KAYAK MAKER is identif ied. A small leftposterior communicating artery is identified. The distal [...] carotid bulbs, internal, andintracranial carotid artery segments arepatent bilaterally withoutflow-limiting stenosis. Vertebral arteries: The vertebral arteries are codominant. The vertebralarteries are patent without flow-limiting stenosis from their originthrough their vertebral and intradural segments. Cervical soft tissues: Heterogeneous thyroid gland with withasymmetricenlargement of the left thyroid lobe. A 1.0 cm right thyroid lobe and 1.8cm left thyroid lobe hypoattenuating nodules are identified. Kyphotic reversal of the cervical spine. [facility], Radiant Results Inft User - 06/26/2020 8:51 PM CDTEXAM: CT ANGIOGRAM HEAD, CT ANGIOGRAM NECKHISTORY: Headache, intracranial hemorrhage suspected TECHNIQUE: Axial CT imaging of the [place] and from the skull baseto the superior mediastinum was obtained during arterial phase after theintravenous administration of IV contrast. Coronal, sagittal, and MIPS wereconstructed.COMPARISON: Same day CT headFINDINGS:CTA HEAD:The PICA origin is visualized bilaterally. The basilar artery is normal incaliber. Common origin of the left superior cerebellar and KAYAK MAKER is noted.The superior cerebellar arteries are patent. The posterior cerebralarteries are patent. A right KAYAK MAKER is identified. A small leftposterior communicating artery is identified.The distal cervical, petrous, cavernous and supraclinoid internal carotidarteries are patent. The anterior and middle cerebral arteries are patent. A fenestratedanterior communicating artery configuration is noted. There is contrastopacification of the dural venous sinuses. CTA NECK:Aortic arch and arch vessel origins: Four vessel branching pattern withleftvertebral artery identified arising off the aortic arch. [...] reviewed this study and agree with theabove report.[facility] CampusCT ANGIOGRAM [id number] 01:50:14No large vessel occlusion or flow-limiting stenosis is identified in thehead and neck arteries. Follow-up with dedicated thyroid ultrasound on a non-emergent, outpatientbasis is recommended for further characterization. Preliminary Report Dictated by Resident: Aury Hallman MD., have reviewed this study and agree with theabove report.EXAM: CT ANGIOGRAM HEAD, CT ANGIOGRAM NECK HISTORY: ?Headache, intracranial hemorrhage suspected TECHNIQUE: Axial CT imaging of the [place] and from the skull baseto the superior mediastinum was obtained during arterial phase after theintravenous administration of IV contrast. Coronal, sagittal, and MIPS wereconstructed. COMPARISON: Same day CT head FINDINGS: CTA HEAD: The PICA origin is visualized bilaterally. The basilar arteryis normal incaliber. Common origin of the left superior cerebellar and KAYAK MAKER is noted.The superior cerebellar arteries are patent. The posterior cerebralarteries are patent. A right KAYAK MAKER is identif ied. A small leftposterior communicating artery is identified. The distal [...] carotid bulbs, internal, andintracranial carotid artery segments arepatent bilaterally withoutflow-limiting stenosis. Vertebral arteries: The vertebral arteries are codominant. The vertebralarteries are patent without flow-limiting stenosis from their originthrough their vertebral and intradural segments. Cervical soft tissues: Heterogeneous thyroid gland with withasymmetricenlargement of the left thyroid lobe. A 1.0 cm right thyroid lobe and 1.8cm left thyroid lobe hypoattenuating nodules are identified. Kyphotic reversal of the cervical spine. [facility], Radiant Results Inft User - 06/26/2020 8:51 PM CDTEXAM: CT ANGIOGRAM HEAD, CT ANGIOGRAM NECKHISTORY: Headache, intracranial hemorrhage suspected TECHNIQUE: Axial CT imaging of the [place] and from the skull baseto the superior mediastinum was obtained during arterial phase after theintravenous administration of IV contrast. Coronal, sagittal, and MIPS wereconstructed.COMPARISON: Same day CT headFINDINGS:CTA HEAD:The PICA origin is visualized bilaterally. The basilar artery is normal incaliber. Common origin of the left superior cerebellar and KAYAK MAKER is noted.The superior cerebellar arteries are patent. The posterior cerebralarteries are patent. A right KAYAK MAKER is identified. A small leftposterior communicating artery is identified.The distal cervical, petrous, cavernous and supraclinoid internal carotidarteries are patent. The anterior and middle cerebral arteries are patent. A fenestratedanterior communicating artery configuration is noted. There is contrastopacification of the dural venous sinuses. CTA NECK:Aortic arch and arch vessel origins: Four vessel branching pattern withleftvertebral artery identified arising off the aortic arch. [...] reviewed this study and agree with theabove report.[facility] CampusSEDIMENTATION [id number] 01:00:08* Test Item Value Reference Range Interpretation Comme nts ESR (test code = 5016911302) See_Comment H [Automated messa ge] The system which generated this result transmitted reference range: 0 - 20 mm/HR. The reference range was not used to interpret this result as normal/abnormal. Lab Interpretation (test code = 74360-4) Abnormal [facility] CampusCT HEAD WO [id number] 00:39:04No acute intracranial hemorrhage or mass effect. Preliminary Report Dictated by Resident: Aury Linton MD., have reviewed this study and agree with theabove report.CT HEAD WOCONTRAST HISTORY: Headache, intracranial hemorrhage suspected COMPARISON: None. [...] attenuation abnormality seen. The stone-white matterdifferentiation is preserved. The mastoid air cells [...] reviewed this study and agree with theabove report.[facility] CampusCOVID-19 (ID NOW RAPID TESTING)2020-06-26 22:58:15* Test Item Value Reference Range Interpretation Comme nts SARS-CoV-2 Rapid ID NOW (test code = 73388-9) Not Detected Not Detected ANTHONY (test code = ANTHONY) ID NOW COVID-19 As say is an isothermal nucleic acid amplification test intended for the qualitative detection of nucleic acid from SARS-CoV-2 viral RNA in nasopharyngeal (ACTIVITY THERAPY SPECIALIST) specimens. It is used under Emergency [...] patient testing if clinically indicated. Lab Interpretation (test code = 62789-7) [facility] 1 [id number] 22:12:42No acute cardiopulmonary abnormality. Preliminary Report Dictated by [...] reviewed this study and agree with the abovereport.[facility] CampusUrinalysis 2020-06-26 21:49:50* Test Item Value Reference Range Interpretation Comme nts APPEARANCE (test code = 4488595476) Clear Clear COLOR (test code = 3390253940) Yellow Yellow PH (test code = 6739388766) 4.8-8.0 SP GRAVITY (test code = 2729830524) 1.003-1.030 GLU U QUAL (test code = 5314272285) Normal Normal BLOOD (test code = 8505668472) Negative Negative KETONES (test code = 3772195054) Negative Negative PROTEIN (test code = 2887-8) Negative Negative UROBILIN (test code = 8582112158) Normal Normal BILIRUBIN (test code = 1725155505) Negative Negative NITRITE (test code = 4332505252) Negative Negative LEUK MURRAY (test code = 0924432449) Negative Negative RBC/HPF (test code = 3287768258) See_Comment [Automated [employer]] The system which generated this result transmitted reference range: 0 - 3 HPF. The reference range was not used to interpret this result as normal/abnormal. WBC/HPF (test code = 9896067954) See_Comment [Automated messa ge] The system which generated this result transmitted reference range: 0 - 5 HPF. The reference range was not used to interpret this result as normal/abnormal. BACTERIA (test code = 3688043173) Negative Negative MUCOUS (test code = 6707939686) Slight Negative LPF A SQ EPITH (test code = 1308326492) HPF Lab Interpretation (test code = 72205-5) Abnormal [facility] CampusTroponin [id number] 21:18:44* Test Item Value Reference Range Interpretation Comme nts TROPONIN I (test code = 7828112278) <0.012 See_Comment [Automated message] The system which generated this result transmitted reference range: <=0.034 ng/mL. The reference range was not used to interpret this result as normal/abnormal. ANTHONY (test code = ANTHONY) Equal or Less than 0.034 ng/ml---Normal ?Note: Cardiac troponin begins to [...] patient's use of biotin. ? Lab Interpretation (test code = 40370-1) Normal [facility] CampusBasi Metabolic Panel (NA, K, CL, CO2, GLUCOSE, BUN, CREATININE, CA)2020-06-26 21:07:49* Test Item Value Reference Range Interpretation Comme nts NA (test code = 1237202014) 141 mmol/L 135-145 K (test code = 0448169879) 4.1 mmol/L 3.5-5.0 CL (test code = 4325451360) 109 mmol/L 98-108 H CO2 TOTAL (test code = 4893555757) 23 mmol/L 23-31 AGAP (test code = 7556346996) 2-16 BUN (test code = 6086630819) 19 mg/dL 7-23 GLUCOSE (test code = 2996454678) 112 mg/dL 70-110 H CREATININE (test code = 0694138668) 0.87 mg/dL 0.50-1.04 CALCIUM (test code = 2414372124) 9.6 mg/dL 8.6-10.6 eGFR (test code = 2746319671) mL/min/1.73m2 ANTHONY (test code = ANTHONY) Association [...] imaging tests). Lab Interpretation (test code = 07971-6) Abnormal [facility] CampusHepatic Function Panel (ALB, T.PRO, BILI T, BU/BC, ALT, AST, ALK PHOS)2020-06-26 21:07:28* Test Item Value Reference Range Interpretation Comme nts TOTAL BILI (test code = 4868570780) 0.3 mg/dL 0.1-1.1 BILI UNCON (test code = 0870526958) 0.1 mg/dL 0.1-1.1 BILI CONJ (test code = 7725578904) 0.0 mg/dL 0.0-0.3 T PROTEIN (test code = 5180419827) 7.4 g/dL 6.3-8.2 ALBUMIN (test code = 6220041689) 4.4 g/dL 3.5-5.0 ALK PHOS (test code = 3619248738) 138 U/L 34-122 H ALTv (test code = 1742-6) 32 U/L 5-35 AST(SGOT) (test code = 7386300793) 40 U/L 13-40 Lab Interpretation (test cod e = 92424-9) Abnormal [facility] CampusCBC with Zlzwbvlbhxbj3898-68-38 20:55:04* Test Item Value Reference Range Interpretation Comme nts WBC (test code = 6690-2) See_Comment [Automated [employer]] The system which generated this result transmitted reference range: 4.30 - 11.10 10*3/?L. The reference range was not used to interpret this result as normal/abnormal. RBC (test code = 789-8) See_Comment L [Automated [employer]] The system which generated this result transmitted reference range: 3.93 - 5.25 10*6/?L. The reference range was not used to interpret this result as normal/abnormal. HGB (test code = 718-7) 10.3 g/dL 11.6-15.0 L HCT (test code = 4544-3) 31.0 % 35.7-45.2 L MCV (test code = 787-2) 97.8 fL 80.6-95.5 H MCH (test code = 785-6) 32.5 pg 25.9-32.8 MCHC (test code = 786-4) 33.2 g/dL 31.6-35.1 RDW-SD (test code = 05888-3) 49.3 fL 39.0-49.9 RDW-CV (test code = 788-0) 13.7 % 12.0-15.5 PLT (test code = 777-3) See_Comment [Automated messa ge] The system which generated this result transmitted reference range: 166 - 358 10*3/?L. The reference range was not used to interpret this result as normal/abnormal. MPV (test code = 04966-4) 10.7 fL 9.5-12.9 NRBC/100 WBC (test code = 7385515520) See_Comment [Automated [employer] ssage] The system which generated this result transmitted reference range: 0.0 - 10.0 /100 WBCs. The reference range was not used to interpret this result as normal/abnormal. NRBC x10^3 (test code = 5109015390) <0.01 See_Comment [Automated messa ge] The system which generated this result transmitted reference range: 10*3/?L. The reference range was not used to interpret this result as normal/abnormal. GRAN MAT (NEUT) % (test code = 770-8) 57.2 % IMM GRAN % (test code = 9791826600) 0.20 % LYMPH % (test code = 736-9) 31.8 % MONO % (test code = 5905-5) 9.9 % EOS % (test code = 713-8) 0.6 % BASO % (test code = 706-2) 0.3 % GRAN MAT x10^3(ANC) (test code = 0681832305) 3.80 10*3/uL 1.88-7.09 IMM GRAN x10^3 (test code = 4995623579) <0.03 0.00-0.06 LYMPH x10^3 (test code = 731-0) 2.11 10*3/uL 1.32-3.29 MONO x10^3 (test code = 742-7) 0.66 10*3/uL 0.33-0.92 EOS x10^3 (test code = 711-2) 0.04 10*3/uL 0.03-0.39 BASO x10^3 (test code = 704-7) <0.03 0.01-0.07 Lab Interpretation (test code = 66569-9) Abnormal [facility] CampusCOMP. METABOLIC PANEL (00709)2020-06-01 11:34:39* Test Item Value Reference Range Interpretation Comme nts NA (test code = 0314817438) 137 mmol/L 135-145 K (test code = 4468686237) 4.3 mmol/L 3.5-5.0 CL (test code = 3918408181) 106 mmol/L 98-108 CO2 TOTAL (test code = 3672630676) 26 mmol/L 23-31 AGAP (test code = 3136075622) 2-16 BUN (test code = 1948992522) 13 mg/dL 7-23 GLUCOSE (test code = 0553714652) 81 mg/dL 70-110 CREATININE (test code = 0448314546) 0.76 mg/dL 0.50-1.04 TOTAL BILI (test code = 0974374449) 0.4 mg/dL 0.1-1.1 CALCIUM (test code = 7324947025) 8.5 mg/dL 8.6-10.6 L T PROTEIN (test code = 3386816385) 6.0 g/dL 6.3-8.2 L ALBUMIN (test code = 4333465489) 3.5 g/dL 3.5-5.0 ALK PHOS (test code = 4067493725) 128 U/L 34-122 H ALTv (test code = 1742-6) 54 U/L 5-35 H AST(SGOT) (test code = 4754978935) 51 U/L 13-40 H eGFR (test code = 9367205871) mL/min/1.73m2 ANTHONY (test code = ANTHONY) Association [...] imaging tests). Lab Interpretation (test code = 52204-5) Abnormal [facility] CampusLAB ONLY COVID AJHTQSGNXHVKEJ9288-44-18 02:48:13COVID DMT InterpretationInterpretation/Recommendations: Molecular NAAT Tests for Active Infection with the SARS-CoV-2 Virus: The patient has currently tested negative for the SARS-CoV-2 virus that causes COVID-19 illness. This most likely indicates that the patient does not have an active infectionwith the SARS-CoV-2 virus. However, infection is not completely ruled out as the false negative rate for molecular NAAT testing using a nasopharyngeal sample can be up to 30%, mostly dependent on thetiming of sample collection in relation to illness [...] COVID-19 testing the patient has had at [facility], including molecular NAAT testing (more commonly known as PCR testing and Rapid ID Now testing) and antibody testing. It does not take into account any testing that a patient has had outside of the [facility] medical record. [facility] LABORATORY SERVICESCOVID HvetygkFHZM-HpA-0 Rapid ID NOW (no units) ? ? Date ? Value ? 05/30/2020 ? Not Detected ? [facility]ORAT[facility] SERVICESUn[facility] MET[facility]OL[facility] (NA, K, CL, CO2, GLUCOSE, BUN, CREATININE, CA)2020-05-31 15:23:27* Test Item Value Reference Range Interpretation Comme nts NA (test code = 5333643546) 137 mmol/L 135-145 K (test code = 3921182023) 4.0 mmol/L 3.5-5.0 CL (test code = 0547769758) 105 mmol/L 98-108 CO2 TOTAL (test code = 3112363643) 27 mmol/L 23-31 AGAP (test code = 2040522980) 2-16 BUN (test code = 7524500941) 14 mg/dL 7-23 GLUCOSE (test code = 7323937184) 92 mg/dL 70-110 CREATININE (test code = 3464954536) 0.72 mg/dL 0.50-1.04 CALCIUM (test code = 2918020714) 8.8 mg/dL 8.6-10.6 eGFR (test code = 8629853320) mL/min/1.73m2 ANTHONY (test code = ANTHONY) Association [...] or urine or abnormalities in imaging tests). [facility] with Vvoeqmahokax5407-18-56 12:40:08* Test Item Value Reference Range Interpretation Comme nts WBC (test code = 6690-2) See_Comment [[employer]] The system which generated this result transmitted reference range: 4.30 - 11.10 10*3/?L. The reference range was not used to interpret this result as normal/abnormal. RBC (test code = 789-8) See_Comment L [Automated [employer]] The system which generated this result transmitted reference range: 3.93 - 5.25 10*6/?L. The reference range was not used to interpret this result as normal/abnormal. HGB (test code = 718-7) 9.7 g/dL 11.6-15.0 L HCT (test code = 4544-3) 29.7 % 35.7-45.2 L MCV (test code = 787-2) 99.0 fL 80.6-95.5 H MCH (test code = 785-6) 32.3 pg 25.9-32.8 MCHC (test code = 786-4) 32.7 g/dL 31.6-35.1 RDW-SD (test code = 30285-5) 51.6 fL 39.0-49.9 H RDW-CV (test code = 788-0) 14.3 % 12.0-15.5 PLT (test code = 777-3) See_Comment [Automated messa ge] The system which generated this result transmitted reference range: 166 - 358 10*3/?L. The reference range was not used to interpret this result as normal/abnormal. MPV (test code = 66898-9) 10.0 fL 9.5-12.9 NRBC/100 WBC (test code = 2191944990) See_Comment [Automated [employer] ssage] The system which generated this result transmitted reference range: 0.0 - 10.0 /100 WBCs. The reference range was not used to interpret this result as normal/abnormal. NRBC x10^3 (test code = 8187717574) <0.01 See_Comment [Automated messa ge] The system which generated this result transmitted reference range: 10*3/?L. The reference range was not used to interpret this result as normal/abnormal. GRAN MAT (NEUT) % (test code = 770-8) 40.2 % IMM GRAN % (test code = 9874864647) 0.40 % LYMPH % (test code = 736-9) 47.8 % MONO % (test code = 5905-5) 10.5 % EOS % (test code = 713-8) 0.9 % BASO % (test code = 706-2) 0.2 % GRAN MAT x10^3(ANC) (test code = 0646128302) 2.15 10*3/uL 1.88-7.09 IMM GRAN x10^3 (test code = 7687554578) <0.03 0.00-0.06 LYMPH x10^3 (test code = 731-0) 2.55 10*3/uL 1.32-3.29 MONO x10^3 (test code = 742-7) 0.56 10*3/uL 0.33-0.92 EOS x10^3 (test code = 711-2) 0.05 10*3/uL 0.03-0.39 BASO x10^3 (test code = 704-7) <0.03 0.01-0.07 Lab Interpretation (test code = 03724-2) Abnormal [facility] P[facility] W WO [id number] 21:54:531. ?Nonobstructive left nephrolithiasis. No striated nephrograms to suggestpyelonephritis. Correlate clinically. 2. ?Status post cholecystectomy and hysterectomy. 3. 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 Correlate with biliary laboratory values. Preliminary Report Dictated by Resident: Reno Morillo ?MD Karen., have reviewed this study and agree with theabove report.EXAM: CT ABDOMEN/PELVIS WITH AND WITHOUT CONTRAST HISTORY: ?Flank pain, kidney stone suspected Pyelonephritis, complicated ? COMPARISON: None. TECHNIQUE AND FINDINGS: Con tiguous axial imaging from the level of the lungbases through the proximal thighs was performed before and after theuncomplicated administration of 100 mL of intravenous contrast. Coronal andsagittalreconstructions were obtained. ?Auto mA and/or iterativereconstruction were used to reduce radiation dose. FINDINGS: LOWER THORAX: Subcentimeter calcified granuloma within the left lower lobe. LIVER:No focal hepatic lesions. Normal liver contour. GALLBLADDER AND BILIARY [...] GI TRACT: No abnormal bowel dilation or wallthickening. Normal appendix. PELVIS/BLADDER: Status post hysterectomy. The urinary bladder is partiallydecompressed. No radiopaque urinary bladder calculi. PERITONEUM AND RETROPERITONEUM: No free airor fluid. LYMPH NODES: No lymphadenopathy. VESSELS: Unremarkable. BONES AND SOFT TISSUES: No suspicious lytic or sclerotic bony lesions. Tinybilateral pars defects at L4 and L5 with minimal grade 1 an terolisthesis ofL5 on S1 and L4 on L5. 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 No hydronephrosis or mass.Nonobstructive left kidney calculi scattered throughout the upper and lowerrenal poles measuring measuring up to 5 mm (total of 4 or 5 calculi).GI TRACT: No abnormal bowel dilation or wall thickening.Normal appendix.PELVIS/BLADDER: Status post hysterectomy. The urinary bladder [...] reviewed this study and agree with theabove report.[facility]-19 (ID NOW RAPID TESTING)2020-05-30 20:50:01* Test Item Value Reference Range Interpretation Comme nts SARS-CoV-2 Rapid ID NOW (test code = 51391-8) Not Detected Not Detected ANTHONY (test code = ANTHONY) ID NOW COVID-19 As say is an isothermal nucleic acid amplification test intended for the qualitative detection of nucleic acid from SARS-CoV-2 viral RNA in nasopharyngeal (ACTIVITY THERAPY SPECIALIST) specimens. It is used under Emergency [...] patient testing if clinically indicated. Lab Interpretation (test code = 74280-3) Normal [facility] (NA, K, CL, CO2, GLUCOSE, BUN, CREATININE, CA)2020-05-30 20:40:22* Test Item Value Reference Range Interpretation Comme nts NA (test code = 7462662415) 139 mmol/L 135-145 K (test code = 5864113519) 4.0 mmol/L 3.5-5.0 CL (test code = 4229981410) 105 mmol/L 98-108 CO2 TOTAL (test code = 0221397950) 25 mmol/L 23-31 AGAP (test code = 7610224110) 2-16 BUN (test code = 4258065119) 18 mg/dL 7-23 GLUCOSE (test code = 5925903598) 100 mg/dL 70-110 CREATININE (test code = 4095579337) 0.66 mg/dL 0.50-1.04 CALCIUM (test code = 1620571993) 9.2 mg/dL 8.6-10.6 eGFR (test code = 3612533166) mL/min/1.73m2 ANTHONY (test code = ANTHONY) Association [...] or urine or abnormalities in imaging tests). [facility] (ALB, T.PRO, BILI T, BU/BC, ALT, AST, ALK PHOS)2020-05-30 20:40:22* Test Item Value Reference Range Interpretation Comme nts TOTAL BILI (test code = 4962986209) 0.4 mg/dL 0.1-1.1 BILI UNCON (test code = 4724458381) 0.2 mg/dL 0.1-1.1 BILI CONJ (test code = 5663957962) 0.0 mg/dL 0.0-0.3 T PROTEIN (test code = 1448737926) 7.7 g/dL 6.3-8.2 ALBUMIN (test code = 2080112751) 4.6 g/dL 3.5-5.0 ALK PHOS (test code = 9328003173) 158 U/L 34-122 H ALTv (test code = 1742-6) 70 U/L 5-35 H AST(SGOT) (test code = 5421507834) 46 U/L 13-40 H Lab Interpretation (test cod e = 54865-6) Abnormal [facility] CampusaPTT2021-04-18 20:37:21* Test Item Value Reference Range Interpretation Comme [facility] APTT Patient (test code = 3173-2) See_Comment [Automated message] The system which generated this result transmitted reference range: 23 - 38 Seconds. The reference range was not used to interpret this result as normal/abnormal. ANTHONY (test code = ANTHONY) The [facility] patient population mean normal value for aPTT is 30 seconds. Lab Interpretation (test code = 98835-9) Normal [facility] CampusProthrombin Time (PT) / [id number] 20:35:00 * Test Item Value Reference Range Interpretation Comme [facility] PROTIME PATIENT (test code = 5964-2) See_Comment [Automated messa ge] The system which generated this result transmitted reference range: 12.0 - 14.7 Seconds. The reference range was not used to interpret this result as normal/abnormal. INR (test code = 6301-6) Normal INR <1.1; Warfarin Therapeutic range 2.0 to 3.0 or 2.5 to 3.5, depending upon the indications. Lab Interpretation (test code = 83220-7) Normal [facility] CampusUrinalysis2021-04-18 20:34:10* Test Item Value Reference Range Interpretation Comme nts APPEARANCE (test code = 8615317620) Clear Clear COLOR (test code = 6113721074) Yellow Yellow PH (test code = 2006017112) 4.8-8.0 SP GRAVITY (test code = 4642900874) 1.003-1.030 GLU U QUAL (test code = 1341125685) Normal Normal BLOOD (test code = 6844504166) Negative Negative KETONES (test code = 9093336094) Negative Negative PROTEIN (test code = 2887-8) Negative Negative UROBILIN (test code = 9913141453) Normal Normal BILIRUBIN (test code = 4659620154) Negative Negative NITRITE (test code = 9065925451) Negative Negative LEUK MURRAY (test code = 7220789871) 25/uL Negative A RBC/HPF (test code = 7652421522) See_Comment [Automated messa ge] The system which generated this result transmitted reference range: 0 - 3 HPF. The reference range was not used to interpret this result as normal/abnormal. WBC/HPF (test code = 4460856295) See_Comment [Automated messa ge] The system which generated this result transmitted reference range: 0 - 5 HPF. The reference range was not used to interpret this result as normal/abnormal. BACTERIA (test code = 8195130361) Few Negative A MUCOUS (test code = 6409022659) Slight Negative LPF A SQ EPITH (test code = 9374043672) HPF Lab Interpretation (test code = 08417-4) Abnormal [facility] with Tmuxmxfiiggx8382-73-61 20:27:23* Test Item Value Reference Range Interpretation Comme nts WBC (test code = 6690-2) See_Comment [Automated messa ge] The system which generated this result transmitted reference range: 4.30 - 11.10 10*3/?L. The reference range was not used to interpret this result as normal/abnormal. RBC (test code = 789-8) See_Comment L [Automated messa ge] The system which generated this result transmitted reference range: 3.93 - 5.25 10*6/?L. The reference range was not used to interpret this result as normal/abnormal. HGB (test code = 718-7) 10.6 g/dL 11.6-15.0 L HCT (test code = 4544-3) 32.1 % 35.7-45.2 L MCV (test code = 787-2) 97.3 fL 80.6-95.5 H MCH (test code = 785-6) 32.1 pg 25.9-32.8 MCHC (test code = 786-4) 33.0 g/dL 31.6-35.1 RDW-SD (test code = 56070-6) 49.6 fL 39.0-49.9 RDW-CV (test code = 788-0) 14.1 % 12.0-15.5 PLT (test code = 777-3) See_Comment [Automated messa ge] The system which generated this result transmitted reference range: 166 - 358 10*3/?L. The reference range was not used to interpret this result as normal/abnormal. MPV (test code = 30388-5) 9.7 fL 9.5-12.9 NRBC/100 WBC (test code = 0078010280) See_Comment [Automated me ssage] The system which generated this result transmitted reference range: 0.0 - 10.0 /100 WBCs. The reference range was not used to interpret this result as normal/abnormal. NRBC x10^3 (test code = 6159285099) <0.01 See_Comment [Automated messa ge] The system which generated this result transmitted reference range: 10*3/?L. The reference range was not used to interpret this result as normal/abnormal. GRAN MAT (NEUT) % (test code = 770-8) 49.6 % IMM GRAN % (test code = 3934050240) 0.30 % LYMPH % (test code = 736-9) 38.7 % MONO % (test code = 5905-5) 10.4 % EOS % (test code = 713-8) 0.8 % BASO % (test code = 706-2) 0.2 % GRAN MAT x10^3(ANC) (test code = 9204589284) 3.26 10*3/uL 1.88-7.09 IMM GRAN x10^3 (test code = 0930274234) <0.03 0.00-0.06 LYMPH x10^3 (test code = 731-0) 2.54 10*3/uL 1.32-3.29 MONO x10^3 (test code = 742-7) 0.68 10*3/uL 0.33-0.92 EOS x10^3 (test code = 711-2) 0.05 10*3/uL 0.03-0.39 BASO x10^3 (test code = 704-7) <0.03 0.01-0.07 Lab Interpretation (test code = 70070-9) Abnormal [facility] CampusLactic Acid Whole [id number] 20:24:41* Test Item Value Reference Range Interpretation Comme nts LACTIC ACID (test code = 2245050584) 1.17 mmol/L 0.50-2.20 Lab Interpretation (test cod e = 33485-0) Normal [facility] CampusUrinalysis2021-04-15 00:29:10* Test Item Value Reference Range Interpretation Comme nts APPEARANCE (test code = 2729412620) Clear Clear COLOR (test code = 6684210810) Yellow Yellow PH (test code = 1506494136) 4.8-8.0 SP GRAVITY (test code = 6155795751) 1.003-1.030 GLU U QUAL (test code = 1345251198) Normal Normal BLOOD (test code = 7060505080) Negative Negative KETONES (test code = 8248602000) Negative Negative PROTEIN (test code = 2887-8) Negative Negative UROBILIN (test code = 6659084160) Normal Normal BILIRUBIN (test code = 2788673029) Negative Negative NITRITE (test code = 6356819778) Negative Negative LEUK MURRAY (test code = 8618652095) 25/uL Negative A RBC/HPF (test code = 6440733407) See_Comment [Automated messa ge] The system which generated this result transmitted reference range: 0 - 3 HPF. The reference range was not used to interpret this result as normal/abnormal. WBC/HPF (test code = 8229068571) See_Comment H [Automated messa ge] The system which generated this result transmitted reference range: 0 - 5 HPF. The reference range was not used to interpret this result as normal/abnormal. BACTERIA (test code = 3702957088) Few Negative A MUCOUS (test code = 6932461186) Slight Negative LPF A SQ EPITH (test code = 8653390072) HPF Lab Interpretation (test code = 27256-1) Abnormal [facility] Metabolic Panel (NA, K, CL, CO2, GLUCOSE, BUN, CREATININE, CA)2020-05-26 23:56:22* Test Item Value Reference Range Interpretation Comme nts NA (test code = 5699276022) 140 mmol/L 135-145 K (test code = 2831529364) 3.8 mmol/L 3.5-5.0 CL (test code = 1585577306) 104 mmol/L 98-108 CO2 TOTAL (test code = 9739941520) 27 mmol/L 23-31 AGAP (test code = 0545551071) 2-16 BUN (test code = 8453110815) 15 mg/dL 7-23 GLUCOSE (test code = 2967227904) 95 mg/dL 70-110 CREATININE (test code = 7615915030) 0.60 mg/dL 0.50-1.04 CALCIUM (test code = 5816321753) 9.0 mg/dL 8.6-10.6 eGFR (test code = 6953857347) mL/min/1.73m2 ANTHONY (test code = ANTHONY) Association [...] or urine or abnormalities in imaging tests). [facility] (ALB, T.PRO, BILI T, BU/BC, ALT, AST, ALK PHOS)2020-05-26 23:55:42* Test Item Value Reference Range Interpretation Comme nts TOTAL BILI (test code = 3750800769) 0.3 mg/dL 0.1-1.1 BILI UNCON (test code = 2771714115) 0.2 mg/dL 0.1-1.1 BILI CONJ (test code = 1058833203) 0.0 mg/dL 0.0-0.3 T PROTEIN (test code = 0175250345) 7.5 g/dL 6.3-8.2 ALBUMIN (test code = 0658135939) 4.5 g/dL 3.5-5.0 ALK PHOS (test code = 3961826408) 165 U/L 34-122 H ALTv (test code = 1742-6) 110 U/L 5-35 H AST(SGOT) (test code = 2307689942) 66 U/L 13-40 H Lab Interpretation (test cod e = 50460-1) Abnormal [facility] with Nrkligvvpaey7361-48-82 23:42:55* Test Item Value Reference Range Interpretation Comme nts WBC (test code = 6690-2) See_Comment [Automated messa ge] The system which generated this result transmitted reference range: 4.30 - 11.10 10*3/?L. The reference range was not used to interpret this result as normal/abnormal. RBC (test code = 789-8) See_Comment L [Automated messa ge] The system which generated this result transmitted reference range: 3.93 - 5.25 10*6/?L. The reference range was not used to interpret this result as normal/abnormal. HGB (test code = 718-7) 10.3 g/dL 11.6-15.0 L HCT (test code = 4544-3) 31.0 % 35.7-45.2 L MCV (test code = 787-2) 96.3 fL 80.6-95.5 H MCH (test code = 785-6) 32.0 pg 25.9-32.8 MCHC (test code = 786-4) 33.2 g/dL 31.6-35.1 RDW-SD (test code = 91170-5) 48.4 fL 39.0-49.9 RDW-CV (test code = 788-0) 13.6 % 12.0-15.5 PLT (test code = 777-3) See_Comment [Automated messa ge] The system which generated this result transmitted reference range: 166 - 358 10*3/?L. The reference range was not used to interpret this result as normal/abnormal. MPV (test code = 22003-8) 9.8 fL 9.5-12.9 NRBC/100 WBC (test code = 2962446982) See_Comment [Automated me ssage] The system which generated this result transmitted reference range: 0.0 - 10.0 /100 WBCs. The reference range was not used to interpret this result as normal/abnormal. NRBC x10^3 (test code = 2311271975) <0.01 See_Comment [Automated messa ge] The system which generated this result transmitted reference range: 10*3/?L. The reference range was not used to interpret this result as normal/abnormal. GRAN MAT (NEUT) % (test code = 770-8) 61.8 % IMM GRAN % (test code = 5103608018) 0.70 % LYMPH % (test code = 736-9) 27.3 % MONO % (test code = 5905-5) 9.0 % EOS % (test code = 713-8) 1.0 % BASO % (test code = 706-2) 0.2 % GRAN MAT x10^3(ANC) (test code = 9147419572) 5.01 10*3/uL 1.88-7.09 IMM GRAN x10^3 (test code = 4493096352) 0.06 10*3/uL 0.00-0.06 LYMPH x10^3 (test code = 731-0) 2.22 10*3/uL 1.32-3.29 MONO x10^3 (test code = 742-7) 0.73 10*3/uL 0.33-0.92 EOS x10^3 (test code = 711-2) 0.08 10*3/uL 0.03-0.39 BASO x10^3 (test code = 704-7) <0.03 0.01-0.07 Lab Interpretation (test code = 22466-0) Abnormal [facility]inalysis2021-04-01 19:25:57* Test Item Value Reference Range Interpretation Comme nts APPEARANCE (test code = 9419494500) Clear Clear COLOR (test code = 4086357919) Yellow Yellow PH (test code = 6643296951) 4.8-8.0 SP GRAVITY (test code = 0309814820) >1.060 1.003-1.030 H GLU U QUAL (test code = 4157882028) Normal Normal BLOOD (test code = 9937576603) Negative Negative KETONES (test code = 9154117207) Negative Negative PROTEIN (test code = 2887-8) Negative Negative UROBILIN (test code = 0459540053) Normal Normal BILIRUBIN (test code = 1739791518) Negative Negative NITRITE (test code = 2606967261) Negative Negative LEUK MURRAY (test code = 3422997866) 25/uL Negative A RBC/HPF (test code = 0957089857) See_Comment [Automated [employer]] The system which generated this result transmitted reference range: 0 - 3 HPF. The reference range was not used to interpret this result as normal/abnormal. WBC/HPF (test code = 2570431619) See_Comment [Automated [employer]] The system which generated this result transmitted reference range: 0 - 5 HPF. The reference range was not used to interpret this result as normal/abnormal. BACTERIA (test code = 3201889497) Few Negative A MUCOUS (test code = 4674790713) Slight Negative LPF A SQ EPITH (test code = 7075397010) HPF Lab Interpretation (test code = 46420-2) Abnormal [facility] PELVIS W [id number] 17:38:50CT Abdomen and Pelvis with intravenous contrast. CLINICAL HISTORY: Acute generalized abdominal pain. DOSE: Up-to-date CT equipment and radiation dose reduction [...] Vessels: Normal. Patenthepatic/portal venous systems and renal veins. Retroperitoneum: No [...] eachmeasuring 2 to 3 mm in size. [facility], Radiant Results Inft User - 05/13/2020 12:39 [...] hepatic/portal venous systems and renal veins.Retroperitoneum: No abnormalfluid or lymphadenopathy.Bowel: No acute findings. Normal appendix is visualized.Bladder and Reproductive Organs: S/P hysterectomy. Urinary bladder isincompletely distended and unopacified.Bones: Exaggerated lumbar lordosis, grade 1 spondylolisthesis at L4-L5 aswell as L5-S1 with bilateral spondylolysis of L4 and L5.Soft tissues: Unremarkable.CONCLUSION:1. No acute intra-abdominal or pelvic abnormalities detected.2. S/P cholecystectomy and hysterectomy. Dilated intrahepatic andextrahepatic bileducts could be secondary to cholecystectomy and/orampullary stenosis. Pancreatic duct is of normal size.3. 2 and possibly 3 nonobstructing stones in the left kidney, eachmeasuring 2 to 3 mm in size. [facility] (ALB, T.PRO, BILI T, BU/BC, ALT, AST, ALK PHOS)2020-05-13 17:24:50* Test Item Value Reference Range Interpretation Comme nts TOTAL BILI (test code = 0857272311) 0.5 mg/dL 0.1-1.1 BILI UNCON (test code = 6096626020) 0.2 mg/dL 0.1-1.1 BILI CONJ (test code = 7961653864) 0.0 mg/dL 0.0-0.3 T PROTEIN (test code = 0037606820) 8.0 g/dL 6.3-8.2 ALBUMIN (test code = 7947305638) 4.7 g/dL 3.5-5.0 ALK PHOS (test code = 3393188746) 142 U/L 34-122 H ALTv (test code = 1742-6) 29 U/L 5-35 AST(SGOT) (test code = 4562065650) 41 U/L 13-40 H Lab Interpretation (test cod e = 28705-9) Abnormal [facility] Metabolic Panel (NA, K, CL, CO2, GLUCOSE, BUN, CREATININE, CA)2020-05-13 17:24:49* Test Item Value Reference Range Interpretation Comme nts NA (test code = 6904659609) 139 mmol/L 135-145 K (test code = 8607705010) 3.9 mmol/L 3.5-5.0 CL (test code = 9464300227) 111 mmol/L 98-108 H CO2 TOTAL (test code = 1673704656) 19 mmol/L 23-31 L AGAP (test code = 0892211193) 2-16 BUN (test code = 1708586039) 15 mg/dL 7-23 GLUCOSE (test code = 4701987560) 123 mg/dL 70-110 H CREATININE (test code = 0616958926) 0.83 mg/dL 0.50-1.04 CALCIUM (test code = 3885413973) 9.5 mg/dL 8.6-10.6 eGFR (test code = 6562916651) mL/min/1.73m2 ANTHONY (test code = ANTHONY) Association [...] imaging tests). Lab Interpretation (test code = 73626-8) Abnormal [facility] CampusLipase [id number] 17:24:49* Test Item Value Reference Range Interpretation Comme nts LIPASE (test code = 2907952769) 25 U/L 0-220 Lab Interpretation (test cod e = 51392-7) Normal [facility] CampusCBC with Rbdvskgvneke8690-50-66 17:06:22* Test Item Value Reference Range Interpretation Comme nts WBC (test code = 6690-2) See_Comment [Automated [employer]] The system which generated this result transmitted reference range: 4.30 - 11.10 10*3/?L. The reference range was not used to interpret this result as normal/abnormal. RBC (test code = 789-8) See_Comment L [Automated messa ge] The system which generated this result transmitted reference range: 3.93 - 5.25 10*6/?L. The reference range was not used to interpret this result as normal/abnormal. HGB (test code = 718-7) 12.0 g/dL 11.6-15.0 HCT (test code = 4544-3) 35.3 % 35.7-45.2 L MCV (test code = 787-2) 95.1 fL 80.6-95.5 MCH (test code = 785-6) 32.3 pg 25.9-32.8 MCHC (test code = 786-4) 34.0 g/dL 31.6-35.1 RDW-SD (test code = 28330-5) 46.4 fL 39.0-49.9 RDW-CV (test code = 788-0) 13.3 % 12.0-15.5 PLT (test code = 777-3) See_Comment [Automated messa ge] The system which generated this result transmitted reference range: 166 - 358 10*3/?L. The reference range was not used to interpret this result as normal/abnormal. MPV (test code = 48080-3) 10.4 fL 9.5-12.9 NRBC/100 WBC (test code = 7135600603) See_Comment [Automated [employer] ssage] The system which generated this result transmitted reference range: 0.0 - 10.0 /100 WBCs. The reference range was not used to interpret this result as normal/abnormal. NRBC x10^3 (test code = 1526377177) <0.01 See_Comment [Automated messa ge] The system which generated this result transmitted reference range: 10*3/?L. The reference range was not used to interpret this result as normal/abnormal. GRAN MAT (NEUT) % (test code = 770-8) 69.6 % IMM GRAN % (test code = 4516566228) 0.40 % LYMPH % (test code = 736-9) 22.4 % MONO % (test code = 5905-5) 7.1 % EOS % (test code = 713-8) 0.4 % BASO % (test code = 706-2) 0.1 % GRAN MAT x10^3(ANC) (test code = 8584527926) 5.65 10*3/uL 1.88-7.09 IMM GRAN x10^3 (test code = 8712263592) 0.03 10*3/uL 0.00-0.06 LYMPH x10^3 (test code = 731-0) 1.82 10*3/uL 1.32-3.29 MONO x10^3 (test code = 742-7) 0.58 10*3/uL 0.33-0.92 EOS x10^3 (test code = 711-2) 0.03 10*3/uL 0.03-0.39 BASO x10^3 (test code = 704-7) <0.03 0.01-0.07 Lab Interpretation (test code = 82500-9) Abnormal [facility] ABDOMEN [id number] 18:12:20Status post cholecystectomy. Mild extra hepatic biliary ductal [...] upperquadrant of the abdomen were obtained.INDICATION: Right lowerquadrant pain.COMPARISON: 12/08/2019FINDINGS:Liver measures 14.2 cm in craniocaudal dimension. Essentially normalhepatic echogenicity and echotexture. No focal hepatic lesions identifiedto the extentvisualized. Main portal vein is patent with normalhepatopedal flow. Main portal vein measures 1.1 cm in AP diameter at portahepatis.The common bile duct measures 7 mm in AP diameter at yen hepatis. Nodiscernible intrahepatic biliary ductal dilatation.Visualized portions of the right kidney appearunremarkable.Visualized portions of the pancreatic head and body appear unremarkable.Pancreatic tail is obscured by bowel gas.Proximal abdominal aorta measures 1.7 cm in AP diameter, normal. Noabnormal aneurysmal dilatation in the mid and distal aorta.IMPRESSIONStatus post cholecystectomy.Mild extra hepatic biliary ductal dilatation can been expected finding inthe post cholecystectomy setting.[facility] CampusXR CHEST 1 [id number] 18:03:08Findings and Impression: Clear lungs. No pleural [...] is normal. No acute osseous abnormality. [facility]. METABOLIC PANEL ([id number])2019-12-08 17:36:00* Test Item Value Reference Range Interpretation Comme nts NA (test code = 7639095651) 139 mmol/L 135-145 K (test code = 3442744427) 4.2 mmol/L 3.5-5 CL (test code = 5138083068) 102 mmol/L 98-108 CO2 TOTAL (test code = 5576622055) 27 mmol/L 23-31 AGAP (test code = 9886909051) 2-16 BUN (test code = 3598266835) 20 mg/dL 7-23 GLUCOSE (test code = 2708217088) 105 mg/dL 70-110 CREATININE (test code = 0494247917) 1.01 mg/dL 0.5-1.04 TOTAL BILI (test code = 0391781806) 0.6 mg/dL 0.1-1.1 CALCIUM (test code = 6736623163) 9.9 mg/dL 8.6-10.6 T PROTEIN (test code = 2562026890) 8.5 g/dL 6.3-8.2 H ALBUMIN (test code = 6638754336) 4.5 g/dL 3.5-5 ALK PHOS (test code = 6383003512) 118 U/L 34-122 ALTv (test code = 1742-6) 32 U/L 5-35 AST(SGOT) (test code = 7619252095) 39 U/L 13-40 eGFR Calculation (Non-) (test code = 8023100196) mL/min/1.73m2 eGFR Calculation () (test code = 8174540576) mL/min/1.73m2 ANTHONY (test code = ANTHONY) Association [...] imaging tests). Lab Interpretation (test code = 44881-2) [facility]20:[facility]* Test Item Value Reference Range Interpretation Comme nts APPEARANCE (test code = 6247871231) Hazy Clear A COLOR (test code = 2322423681) Yellow Yellow PH (test code = 2714290619) 4.8-8.0 SP GRAVITY (test code = 4422790779) 1.003-1.030 H GLU U QUAL (test code = 6154406892) Normal Normal BLOOD (test code = 0734614536) Negative Negative KETONES (test code = 8170663806) Negative Negative PROTEIN (test code = 2887-8) 30 mg/dL Negative A UROBILIN (test code = 6556873871) Normal Normal BILIRUBIN (test code = 7220103844) Negative Negative NITRITE (test code = 6865280954) Negative Negative LEUK MURRAY (test code = 1691609062) 75/uL Negative A RBC/HPF (test code = 4386051994) See_Comment [Automated Reesio] The system which generated this result transmitted reference range: 0 - 3 HPF. The reference range was not used to interpret this result as normal/abnormal. WBC/HPF (test code = 7450779620) See_Comment [Automated messa ge] The system which generated this result transmitted reference range: 0 - 5 HPF. The reference range was not used to interpret this result as normal/abnormal. BACTERIA (test code = 8701165387) Negative Negative MUCOUS (test code = 2523334181) Slight Negative LPF A SQ EPITH (test code = 0670247531) HPF HYAL CAST (test code = 9818631517) See_Comment [Automated messa ge] The system which generated this result transmitted reference range: <=2 LPF. The reference range was not used to interpret this result as normal/abnormal. Lab Interpretation (test code = 33453-6) Abnormal [facility] WITH [id number] 17:05:00* Test Item Value Reference Range Interpretation Comme nts WBC (test code = 6690-2) See_Comment [Automated messa ge] The system which generated this result transmitted reference range: 4.30 - 11.10 10*3/?L. The reference range was not used to interpret this result as normal/abnormal. RBC (test code = 789-8) See_Comment L [Automated messa ge] The system which generated this result transmitted reference range: 3.93 - 5.25 10*6/?L. The reference range was not used to interpret this result as normal/abnormal. HGB (test code = 718-7) 11.2 g/dL 11.6-15 L HCT (test code = 4544-3) 34.5 % 35.7-45.2 L MCV (test code = 787-2) 100.0 fL 80.6-95.5 H MCH (test code = 785-6) 32.5 pg 25.9-32.8 MCHC (test code = 786-4) 32.5 g/dL 31.6-35.1 RDW-SD (test code = 79188-0) 43.5 fL 39-49.9 RDW-CV (test code = 788-0) 11.9 % 12-15.5 L PLT (test code = 777-3) See_Comment [Automated messa ge] The system which generated this result transmitted reference range: 166 - 358 10*3/?L. The reference range was not used to interpret this result as normal/abnormal. MPV (test code = 46619-2) 10.9 fL 9.5-12.9 NRBC/100 WBC (test code = 7410025095) See_Comment [Automated me ssage] The system which generated this result transmitted reference range: 0.0 - 10.0 /100 WBCs. The reference range was not used to interpret this result as normal/abnormal. NRBC x10^3 (test code = 6596743439) <0.01 See_Comment [Automated messa ge] The system which generated this result transmitted reference range: 10*3/?L. The reference range was not used to interpret this result as normal/abnormal. GRAN MAT (NEUT) % (test code = 770-8) 64.8 % IMM GRAN % (test code = 5194484719) 0.40 % LYMPH % (test code = 736-9) 27.0 % MONO % (test code = 5905-5) 6.5 % EOS % (test code = 713-8) 0.9 % BASO % (test code = 706-2) 0.4 % GRAN MAT x10^3(ANC) (test code = 9396409404) 4.35 10*3/uL 1.88-7.09 IMM GRAN x10^3 (test code = 0382049131) 0.03 10*3/uL 0-0.06 LYMPH x10^3 (test code = 731-0) 1.82 10*3/uL 1.32-3.29 MONO x10^3 (test code = 742-7) 0.44 10*3/uL 0.33-0.92 EOS x10^3 (test code = 711-2) 0.06 10*3/uL 0.03-0.39 BASO x10^3 (test code = 704-7) 0.03 10*3/uL 0.01-0.07 Lab Interpretation (test code = 57544-8) Abnormal [facility] WO [id number] 16:59:351. ?Nonobstructive left nephrolithiasis. 2. ?No radiographic findings to explain patient's abdominal or flank pain. 3. ?Partially visualized 4 mm solid nodule in the left lower lobe, thoughtto be unchanged.CT abdomen and pelvis without contrast REASON FOR STUDY: Flank pain, stone disease suspected C OMPARISON: 06/24/2025 TECHNIQUE: Unenhanced multidetector axial CT images [...] PELVISLiver: Hepatic dome is not fully within [id number]-jb-sprl. No focal hepaticlesions identified within limits of unenhanced technique. Biliary Tract/GB: Status postcholecystectomy. Spleen: No splenomegaly. Pancreas: No pancreatic ductal [...] ventralabdominal/pelvic wall. Tiny fat-containing umbilical hernia. BONES: BilateralL4 and L5 pars defects without appreciable listhesis. [facility], Radiant Results Inft User - 12/08/2019 12:00 PM CDTCT abdomen and pelvis without contrastREASON FOR STUDY: Flank pain, stone disease suspected COMPARISON: 06/24/2025TECHNIQUE: Unenhanced multidetector axial CT images from lung bases throughpelvic inlet. As requested, no IV contrast was used. Coronal and sagittalMPR images also generated.IN TRAVENOUS CONTRAST ADMINISTRATION: None.FINDINGS: Limited evaluation of abdominal and pelvic organsdue to lack ofintravenous contrast.Lower chest: Partially visualized 4 mm nodule questionable calcificationwithin the left lower lobe (2:1).Hypoattenuating blood flow within the left lateral ventricle may representanemia.ABDOMEN AND PELVISLiver: Hepatic dome is not fully within ayphx-dd-jfib. No focal hepaticlesions identified within limits of unenhanced technique.Biliary Tract/GB: Status post cholecystectomy.Spleen: No splenomegaly.Pancreas: No pancreatic ductal dilatation. Punctate 2 to 3 mm c alcificationat the pancreatic tail on 2:29.Adrenals: Within normal limits.Kidneys: Left kidney contains approximately 5-6 nonobstructive calculi withthe largest 2 within the left interpolar and upperpole regions measuring 5and 4 mm, respectively. No [...] mm solid nodule in the left lower lobe,thoughtto be unchanged.[facility] POCT [id number] 16:12:00* Test Item Value Reference Range Interpretation Comme nts POCT PREG (test code = 1605) negative On board controls acceptable with C Line (test code = 3574) present POCT PREG LOT # (test code = 3575) [id number] POCT PREG TEST DATE ( test code = 3576) 05/12/2021 Lab Interpretation (test cod e = 99759-9) Normal [facility], [id number] 15:17:00 * Test Item Value Reference Range Interpretation Comme nts POCT U SP GRAV (test code = 3255) 1.025 mg/dl 1.005-1.025 POCT PH U (test code = 3254) 6.0 mg/dl 5-8 POCT U LEUK EST (test code = 3263) Trace Negative - Negative POCT U NIT (test code = 3262) Negative Negative - Negati ve POCT U PROT (test code = 3259) Negative Negative - Negative POCT U GLU (test code = 3256) Negative Negative - Negati ve POCT U KETONE (test code = 3258) Negative Negative - Negative POCT U UROBILI (test code = 3260) 0.2 mg/dl 0.2-1 POCT U BILI (test code = 3261) Negative Negative - Negative POCT U BLD (test code = 3257) Negative Negative - Negati ve POCT U COLOR (test code = 3266) yellow POCT U APPEAR (test code = 3267) clear Lab Interpretation (test cod e = 41827-0) Abnormal [facility], [id number] 15:17:00 * Test Item Value Reference Range Interpretation Comme nts POCT U SP GRAV (test code = 3255) 1.025 mg/dl 1.005-1.025 POCT PH U (test code = 3254) 6.0 mg/dl 5-8 POCT U LEUK EST (test code = 3263) Trace Negative - Negative POCT U NIT (test code = 3262) Negative Negative - Negati ve POCT U PROT (test code = 3259) Negative Negative - Negative POCT U GLU (test code = 3256) Negative Negative - Negati ve POCT U KETONE (test code = 3258) Negative Negative - Negative POCT U UROBILI (test code = 3260) 0.2 mg/dl 0.2-1 POCT U BILI (test code = 3261) Negative Negative - Negative POCT U BLD (test code = 3257) Negative Negative - Negati ve POCT U COLOR (test code = 3266) yellow POCT U APPEAR (test code = 3267) clear Lab Interpretation (test cod e = 63644-8) Abnormal [facility], BRAIN, [id number] 19:53:00With seizure protocolThin coronal cuts especially around [...] MDReport Verified Date/Time: 10/25/2018 19:53:41 Reading Location: [facility] C013V Neuro Reading Room EEG AWAKE AND [id number] 19:37:00For STAT EEG- after 5 PM weekdays, weekends and holidays, page the on-call EEG TechReason for exam:- >altered mental statusDATE OF EXAMINATION: 10/25/18EEG NO: [id number] 10: R56.9CPT CODE: [id number] SUMMARY:This is a digital EEG recorded with 32 input channels on a [employer] system and then reviewed with bipolar and referential montages using the modified combinatorial system nomenclature.TECHNICAL SUMMARY: During the maximally awake state, a well- regulated, moderate amplitude occipital dominant rhythm of 9-10 Hz alpha is present bilaterally. More anteriorly, similar as well as faster frequencies of lower amplitudes are present, including low voltage 13-18 Hz beta in the anterior leads.Hyperventilation for 3 minutes is associated with a slight build up of slowing symmetrically.Photic stimulation across various frequencies of flickering does not significantly alter the backgroundWith drowsiness, the ove rall background amplitudes are relatively diminished, while increased amounts of diffuse 5-7 Hz theta and rhythmical slowing emerge. Further sleep architectures are not present.IMPRESSION: This is a normal EEG study, capturing the awake and drowsy states. There is no evidence for epileptiform abnormality, including absence of electrographic seizure.COMMENT: The absence of epileptiform abnormalitydoes not necessarily preclude the clinical diagnosis of epilepsy or provoked seizure for the symptom(s) of interest. HEMOGLOBIN [id number] 14:02:00* Test Item Value Reference Range Interpretation Comme nts HEMOGLOBIN A1C (BEAKER) (anders t code = 368) 5.6 % 4.3-6.1 TSH/FREE T4 IF [id number] 06:11:00* Test Item Value Reference Range Interpretation Comme nts THYROID STIMULATING HORMONE (BEAKER) (test code = 772) 3.63 uIU/mL 0.35-4.94 VITAMIN B12 AND [id number] 06:11:00* Test Item Value Reference Range Interpretation Comme nts VITAMIN B12 (BEAKER) (test c ode = 774) 272 pg/mL 213-816 FOLATE (BEAKER) (test code = 362) 9.4 ng/mL >=7.0 [id number] 05:58:00* Test Item Value Reference Range Interpretation Comme nts PHOSPHORUS (BEAKER) (test co de = 604) 3.6 mg/dL 2.3-4.7 [id number] 05:58:00* Test Item Value Reference Range Interpretation Comme nts MAGNESIUM (BEAKER) (test cod e = 627) 2.1 mg/dL 1.6-2.6 BASIC METABOLIC [id number] 05:58:00* Test Item Value Reference Range Interpretation Comme nts SODIUM (BEAKER) (test code = 381) 139 meq/L 136-145 POTASSIUM (BEAKER) (test code = 379) 4.1 meq/L 3.5-5.1 CHLORIDE (BEAKER) (test code = 382) 109 meq/L 98-107 H CO2 (BEAKER) (test code = 355) 22 meq/L 22-29 BLOOD UREA NITROGEN (BEAKER) (test code = 354) 20 mg/dL 7-21 CREATININE (BEAKER) (test code = 358) 0.80 mg/dL 0.57-1.25 GLUCOSE RANDOM (BEAKER) (test code = 652) 87 mg/dL 70-105 CALCIUM (BEAKER) (test code = 697) 9.2 mg/dL 8.4-10.2 EGFR (BEAKER) (test code = 1092) 78 mL/min/1.73 sq m ESTIMATED GFR IS NOT ACCURATE CREATININE CLEARANCE IN PREDICTING GLOMERULAR FILTRATION RATE. ESTIMATED GFR IS NOT APPLICABLE FOR DIALYSIS PATIENTS. LIPID [id number] 05:58:00* Test Item Value Reference Range Interpretation Comme nts TRIGLYCERIDES (BEAKER) (test code = 540) 191 mg/dL CHOLESTEROL (BEAKER) (test c ode = 631) 256 mg/dL HDL CHOLESTEROL (BEAKER) (te st code = 976) 70 mg/dL LDL CHOLESTEROL CALCULATED ( BEAKER) (test code = 633) 148 mg/dL Triglyceride Reference Range: Low Risk <150 Borderline 150-199 High Risk 200-499 Very High Risk >=500Cholesterol Reference Range: Low Risk <200 Borderline 200-239 High Risk >240HDL Cholesterol Reference Range: Low Risk >=60 High Risk <40LDL Cholesterol Reference Range: Optimal <100 Near Optimal 100-129 Borderline 130-159 High 160-189 Very High >=190HEPATIC FUNCTION [id number] 05:58:00* Test Item Value Reference Range Interpretation Comme nts TOTAL PROTEIN (BEAKER) (test code = 770) 7.7 gm/dL 6.0-8.3 ALBUMIN (BEAKER) (test code = 1145) 4.1 g/dL 3.5-5.0 BILIRUBIN TOTAL (BEAKER) (te st code = 377) 0.2 mg/dL 0.2-1.2 BILIRUBIN DIRECT (BEAKER) (t est code = 706) 0.1 mg/dL 0.1-0.5 ALKALINE PHOSPHATASE (BEAKER ) (test code = 346) 158 U/L 40-150 H AST (SGOT) (BEAKER) (test co de = 353) 43 U/L 5-34 H ALT (SGPT) (BEAKER) (test co de = 347) 45 U/L 6-55 CBC (HEMOGRAM ONLY)2018-10-25 05:18:00* Test Item Value Reference Range Interpretation Comme nts WHITE BLOOD CELL COUNT (BEAK ER) (test code = 775) 7.5 K/ L 3.5-10.5 RED BLOOD CELL COUNT (BEAKER ) (test code = 761) 3.39 M/ L 3.93-5.22 L HEMOGLOBIN (BEAKER) (test co de = 410) 10.8 GM/DL 11.2-15.7 L HEMATOCRIT (BEAKER) (test co de = 411) 33.8 % 34.1-44.9 L MEAN CORPUSCULAR VOLUME (JT KER) (test code = 753) 99.7 fL 79.4-94.8 H MEAN CORPUSCULAR HEMOGLOBIN (BEAKER) (test code = 751) 31.9 pg 25.6-32.2 MEAN CORPUSCULAR HEMOGLOBIN CONC (BEAKER) (test code = 752) 32.0 GM/DL 32.2-35.5 L RED CELL DISTRIBUTION WIDTH (BEAKER) (test code = 412) 13.4 % 11.7-14.4 PLATELET COUNT (BEAKER) (anders t code = 756) 154 K/CU MM 150-450 MEAN PLATELET VOLUME (BEAKER ) (test code = 754) 11.4 fL 9.4-12.3 NUCLEATED RED BLOOD CELLS (BEAKER) (test code = 413) 0 /100 WBC 0-0 CT, BRAIN, WITHOUT [id number] 00:33:00FINAL REPORT EXAM: CT, BRAIN, WITHOUT CONTRAST CLINICAL INDICATION: Altered mental status. TECHNIQUE: Helical CT images from skull base to vertex without IV contrast. This exam was performed according to our departmental dose-optimization program, which includes automated exposure control, adjustment [...] MDReport Verified Date/Time: 10/25/2018 00:33:20 Reading Location: [address] Neuro Reading Room POCT-GLUCOSE [id number] 23:26:00* Test Item Value Reference Range Interpretation Comme [facility] POC-GLUCOSE METER (BEAKER) (test code = 1538) 77 mg/dL 70-[address] [facility] [address] [address] SCREEN, [id number] 18:06:00* Test Item Value Reference Range Interpretation Comme nts TEST URINE (BEAKER ) (test code = 583) Negative RAPID DRUG SCREEN, [id number] 16:54:00* Test Item Value Reference Range Interpretation Comme nts BARBITURATE URINE (BEAKER) ( test code = 725) Negative Negative BENZODIAZEPINE SCREEN URINE (BEAKER) (test code = 726) Negative Negative COCAINE (METAB.) SCREEN (JT KER) (test code = 1164) Negative Negative METHADONE SCREEN (BEAKER) (t est code = 1436) Negative Negative OPIATE SCREEN URINE (BEAKER) (test code = 734) Negative Negative CANNABINOID SCREEN URINE (BE LEXI) (test code = 727) Negative Negative AMPH/METHAMPH SCREEN (BEAKER ) (test code = 1438) Negative Negative PHENCYCLIDINE SCREEN URINE ( BEAKER) (test code = 608) Negative Negative DRUG CUTOFF CONC.Cocaine 300 ng/mL Cannabinoid 50 ng/mLBenzodiazepine 200 ng/mLBarbiturate 200 ng/mLPhencyclidine 25 ng/mLOpiate 300 ng/mLMethadone 300 ng/mLAmphetamine/ 1000 ng/mL MethamphetamineThis assay provides an unconfirmed qualitative test result for the clinical management of patients in emergency situations. Chain of custody not maintained. Some mxpc-egk-blxgqlv medications, as well as adulterants, may cause inaccurate results. Clinical correlation should be applied. A more comprehensive drug screen or confirmation of a detected drug may be performed upon request.URINALYSIS W/ REFLEX URINE CULTURE 2018-10-24 15:45:00* Test Item Value Reference Range Interpretation Comme nts COLOR (BEAKER) (test code = 470) Light Yellow CLARITY (BEAKER) (test code = 469) Hazy SPECIFIC GRAVITY UA (BEAKER) (test code = 468) 1.019 1.001-1.035 PH UA (BEAKER) (test code = 467) 6.5 5.0-8.0 PROTEIN UA (BEAKER) (test co de = 464) 20 mg/dL Negative A GLUCOSE UA (BEAKER) (test co de = 365) Negative Negative KETONES UA (BEAKER) (test co de = 371) Negative Negative BILIRUBIN UA (BEAKER) (test code = 462) Negative Negative BLOOD UA (BEAKER) (test code = 461) Negative Negative NITRITE UA (BEAKER) (test co de = 465) Positive Negative A LEUKOCYTE ESTERASE UA (BEAKE R) (test code = 466) Negative Negative UROBILINOGEN UA (BEAKER) (te st code = 463) 0.2 mg/dL 0.2-1.0 RBC UA (BEAKER) (test code = 519) 1 /HPF WBC UA (BEAKER) (test code = 520) 6 /HPF BACTERIA (BEAKER) (test code = 517) Occasional MUCUS (BEAKER) (test code = 1574) Rare SQUAMOUS EPITHELIAL (BEAKER) (test code = 516) < /HPF CRYSTALS, URINE (BEAKER) (te st code = 1521) Rare SOURCE(BEAKER) (test code = 2795) B-TYPE NATRIURETIC FACTOR (BNP)2018-10-24 15:41:00* Test Item Value Reference Range Interpretation Comme nts B-TYPE NATRIURETIC PEPTIDE ( BEAKER) (test code = 700) < pg/mL 0-100 BASIC METABOLIC [id number] 15:41:00* Test Item Value Reference Range Interpretation Comme nts SODIUM (BEAKER) (test code = 381) 139 meq/L 136-145 POTASSIUM (BEAKER) (test code = 379) 4.3 meq/L 3.5-5.1 CHLORIDE (BEAKER) (test code = 382) 108 meq/L 98-107 H CO2 (BEAKER) (test code = 355) 24 meq/L 22-29 BLOOD UREA NITROGEN (BEAKER) (test code = 354) 22 mg/dL 7-21 H CREATININE (BEAKER) (test code = 358) 0.81 mg/dL 0.57-1.25 GLUCOSE RANDOM (BEAKER) (test code = 652) 88 mg/dL 70-105 CALCIUM (BEAKER) (test code = 697) 9.4 mg/dL 8.4-10.2 EGFR (BEAKER) (test code = 1092) INSUFFICIENT CLI NICAL DATA TO CALCULATE ESTIMATED GFR. TROPONIN [id number] 15:34:00* Test Item Value Reference Range Interpretation Comme nts TROPONIN I (BEAKER) (test code = 397) [...] acute neurological disease, and persistent tachyarrhythmia.HEPATIC FUNCTION [id number] 15:32:00* Test Item Value Reference Range Interpretation Comme nts TOTAL PROTEIN (BEAKER) (test code = 770) 8.0 gm/dL 6.0-8.3 ALBUMIN (BEAKER) (test code = 1145) 4.2 g/dL 3.5-5.0 BILIRUBIN TOTAL (BEAKER) (te st code = 377) 0.1 mg/dL 0.2-1.2 L BILIRUBIN DIRECT (BEAKER) (t est code = 706) 0.1 mg/dL 0.1-0.5 ALKALINE PHOSPHATASE (BEAKER ) (test code = 346) 165 U/L 40-150 H AST (SGOT) (BEAKER) (test co de = 353) 57 U/L 5-34 H ALT (SGPT) (BEAKER) (test co de = 347) 51 U/L 6-55 [id number] 15:27:00* Test Item Value Reference Range Interpretation Comme nts ETHANOL (BEAKER) (test code = 400) < mg/dL <=10 POCT-GLUCOSE [id number] 15:15:00* Test Item Value Reference Range Interpretation Comme nts POC-GLUCOSE METER (BEAKER) (test code = 1538) 82 mg/dL 70-[address] [facility] [address] [address] RAD, CHEST, 1 VIEW, NON [id number] 15:13:00Reason for exam:->sobShould this be performed at the bedside?->YesFINAL REPORT INDICATION: sob COMPARISON: None TECHNIQUE: Single frontal view of the chest. FINDINGS: Lungs and pleura: Clear lungs. No effusion.Heart and mediastinum: Normal heart size. Unremarkable mediastinal contours.Osseous structures: No acute abnormality.Other: None. IMPRESSION: No acute intrathoracic abnormality. Signed: JR Escobar Robert MDReport Verified Date/Time: 10/24/2018 15:13:38 Reading Location: [facility] Radiology Reading Room CBC W/PLT COUNT & AUTO DIFFERENTIAL 2018-10-24 15:06:00* Test Item Value Reference Range Interpretation Comme nts WHITE BLOOD CELL COUNT (BEAK ER) (test code = 775) 6.8 K/ L 3.5-10.5 RED BLOOD CELL COUNT (BEAKER ) (test code = 761) 3.36 M/ L 3.93-5.22 L HEMOGLOBIN (BEAKER) (test co de = 410) 10.9 GM/DL 11.2-15.7 L HEMATOCRIT (BEAKER) (test co de = 411) 33.2 % 34.1-44.9 L MEAN CORPUSCULAR VOLUME (JT KER) (test code = 753) 98.8 fL 79.4-94.8 H MEAN CORPUSCULAR HEMOGLOBIN (BEAKER) (test code = 751) 32.4 pg 25.6-32.2 H MEAN CORPUSCULAR HEMOGLOBIN CONC (BEAKER) (test code = 752) 32.8 GM/DL 32.2-35.5 RED CELL DISTRIBUTION WIDTH (BEAKER) (test code = 412) 13.3 % 11.7-14.4 PLATELET COUNT (BEAKER) (anders t code = 756) 174 K/CU MM 150-450 MEAN PLATELET VOLUME (BEAKER ) (test code = 754) 11.1 fL 9.4-12.3 NUCLEATED RED BLOOD CELLS (BEAKER) (test code = 413) 0 /100 WBC 0-0 NEUTROPHILS RELATIVE PERCENT (BEAKER) (test code = 429) 67 % LYMPHOCYTES RELATIVE PERCENT (BEAKER) (test code = 430) 25 % MONOCYTES RELATIVE PERCENT (BEAKER) (test code = 431) 7 % EOSINOPHILS RELATIVE PERCENT (BEAKER) (test code = 432) 0 % BASOPHILS RELATIVE PERCENT (BEAKER) (test code = 437) 0 % NEUTROPHILS ABSOLUTE COUNT (BEAKER) (test code = 670) 4.56 K/ L 1.56-6.13 LYMPHOCYTES ABSOLUTE COUNT (BEAKER) (test code = 414) 1.71 K/ L 1.18-3.74 MONOCYTES ABSOLUTE COUNT (BE LEXI) (test code = 415) 0.44 K/ L 0.24-0.36 H EOSINOPHILS ABSOLUTE COUNT (BEAKER) (test code = 416) 0.02 K/ L 0.04-0.36 L BASOPHILS ABSOLUTE COUNT (BE LEXI) (test code = 417) 0.02 K/ L 0.01-0.08 IMMATURE GRANULOCYTES-RELATI VE PERCENT (BEAKER) (test code = 2801) 0 % 0-1 CT, SPINE, CERVICAL, WO [id number] 15:06:00Reason for exam:->r/o c-spine injuryIs the patient ?->UnknownWhat is the patient's [...] body heights are preserved without fracture or dislocation.There is no prevertebral soft tissue swelling. There [...] MDReport Verified Date/Time: 10/24/2018 15:06:41 Reading Location: [address] Neuro Reading Room CT, BRAIN/STROKE [id number] 14:38:00Reason for exam:->r/o cvaIs the patient ?->UnknownWhat [...] dictation Signed: Karen Shirley Verified Date/Time: 10/24/2018 14:38:49Reading Location: [facility] C013W Consult Reading Room Consult Notes Date/Time Note Provider Source 2023-03-07 09:41:06 GENERAL SURGERY CONSULT Date of Service: 03/07/23 Requesting Physician: Medicine team Chief Complaint: We were asked to see this patient in the Floor to give our opinion regarding Mckenna Avila 47 year old female who presents with pneumomediastinum. HPI Mckenna Avila is a 47 year old female with hx of of Crohn's, CVA, DVT, HTN, and RA who is admitted with UTI. Per patient, before presentation to hospital she had fever, sob and body ache for 6 days which improved but she started to have worsening n/v. In hospital she was found to have UTI. Also per patient, she has been having chronic nausea because of her Crohn's disease. She is compliant wih her medication. Currently her n/v is improved. She denies SOB. She is tolerating diet. CT surgery was consulted for small pneumomediastinum which was found on CT. CURRENT HOSPITAL MEDICATIONS Current Facility-Administered Medications Medication Dose Route Frequency Last Rate Last Admin morpHINE (4 mg/mL) injection 4 mg 4 mg Slow IV Push Q4HPRN 4 mg at 03/07/23 0811 LORazepam (ATIVAN) tablet 1 mg 1 mg Oral TID 1 mg at 03/07/23 0811 piperacillin-tazobactam (ZOSYN) 3.375 g in NaCl 0.9% (NS) 100 mL MINI-BAG 3.375 g IV Piggyback Q8H ABX 25 mL/hr at 03/07/23 0558 3.375 g at 03/07/23 0558 acetaminophen (TYLENOL) tablet 650 mg 650 mg Oral Q6HPRN albuterol (VENTOLIN) inhaler 2 Puff 2 Puff Inhalation TID 2 Puff at 03/06/23 1906 albuterol (VENTOLIN) inhaler 2 Puff 2 Puff Inhalation Q4HPRN azaTHIOprine (IMURAN) tablet 150 mg 150 mg Oral DAILY 150 mg at 03/07/23 0810 busPIRone (BUSPAR) tablet 15 mg 15 mg Oral TID 15 mg at 03/07/23 0810 dicyclomine (BENTYL) tablet 20 mg 20 mg Oral TID 20 mg at 03/07/23 0810 FLUoxetine (PROZAC) capsule 20 mg 20 mg Oral DAILY 20 mg at 03/07/23 0811 gabapentin (NEURONTIN) tablet 600 mg 600 mg Oral TID 600 mg at 03/07/23 0810 hydralAZINE (APRESOLINE) injection 10 mg 10 mg Slow IV Push Q4HPRN HYDROcodone-acetaminophen (NORCO 5) 5-325 mg tablet 1 tablet 1 tablet Oral Q6HPRN 1 tablet at 03/07/23 0555 melatonin (MELATIN) tablet 3 mg 3 mg Oral QHSPRN NaCl 0.9% (NS) IV infusion 1,000 mL 1,000 mL IV Infusion CONTINUOUS 125 mL/hr at 03/07/23 0511 1,000 mL at 03/07/23 0511 ondansetron (ZOFRAN (PF)) injection 4 mg 4 mg Slow IV Push Q6HPRN 4 mg at 03/07/23 0555 pantoprazole (PROTONIX) EC tablet 40 mg 40 mg Oral DAILY 40 mg at 03/07/23 0810 rivaroxaban (XARELTO) tablet 20 mg 20 mg Oral DAILY 20 mg at 03/07/23 0811 tiZANidine (ZANAFLEX) tablet 4 mg 4 mg Oral TID 4 mg at 03/07/23 0811 REVIEW OF SYSTEMS Per HPI HISTORIES Past Medical History: Diagnosis Date Aortic regurgitation Mild, noted on TTE 2014 C. difficile colitis Chronic pain Crohn's disease 1998 Endometriosis Hepatic steatosis On CT scan Kidney stone 2010 Chronic/recurrent Rheumatoid arthritis Temporal arteritis Ulcerative colitis UTI (urinary tract infection) 2011 Chronic/recurrent, requiring multiple abx Past Surgical History: Procedure Laterality Date CHOLECYSTECTOMY 2012 HYSTERECTOMY with BSO URETERAL STENT REMOVAL Right 2015 Family History Problem Relation Age of Onset Hypertension Father Hypertension Father Hyperlipidemia Mother Hyperlipidemia Mother Colon Cancer Maternal Grandmother 77 Social History Socioeconomic History Marital status: Substance and Sexual Activity Alcohol use: No Alcohol/week: 0.0 standard drinks of alcohol Comment: No alcohol use per pt Drug use: No PHYSICAL EXAM (-)=Negative,(+)=Positive Vitals: Vitals: 03/06/23 2341 03/07/23 0134 03/07/23 0341 03/07/23 0730 BP: (!) 82/45 104/72 102/69 131/85 BP Location: Patient Position: Pulse: 57 78 74 80 Resp: 18 18 18 18 Temp: 36.4 ?C (97.6 ?F) 36.5 ?C (97.7 ?F) 36.7 ?C (98 ?F) 36.7 ?C (98.1 ?F) SpO2: 99% 98% 97% 98% Weight: Height: General: alert and oriented Neck: supple and no crepitus Chest: symmetric, no deformities, no chest wall tenderness Respiratory: no respiratory distress, on room air Cardio: regular rate and rhythm Abdomen: not tested and soft LABORATORY Latest Reference Range & Units 03/07/23 05:26 WBC x10 3 4.30 - 11.10 10*3/?L 5.66 RBC x10 6 3.93 - 5.25 10*6/?L 2.74 (L) HGB 11.6 - 15.0 g/dL 9.1 (L) HCT 35.7 - 45.2 % 27.2 (L) MCV 80.6 - 95.5 fL 99.3 (H) MCH 25.9 - 32.8 pg 33.2 (H) MCHC 31.6 - 35.1 g/dL 33.5 RDW-SD 39.0 - 49.9 fL 50.0 (H) RDW-CV 12.0 - 15.5 % 13.7 PLT x10 3 166 - 358 10*3/?L 373 (H) MPV 9.5 - 12.9 fL 10.1 NRBC /100 WBC 0.0 - 10.0 /100 WBCs 0.0 NRBC x10 3 10*3/?L <0.01 GRAN MAT (NEUT) % % 50.0 IMM GRAN % % 0.50 LYMPH% % 34.1 MONO % % 13.6 EOS % % 1.6 BASO % % 0.2 GRAN MAT x10 3 (ANC) 1.88 - 7.09 10*3/uL 2.83 IMM GRAN x10 3 0.00 - 0.06 10*3/uL 0.03 LYMPH x10 3 1.32 - 3.29 10*3/uL 1.93 MONO x10 3 0.33 - 0.92 10*3/uL 0.77 EOS x10 3 0.03 - 0.39 10*3/uL 0.09 BASO x10 3 0.01 - 0.07 10*3/uL <0.03 NA 135 - 145 mmol/L 138 K 3.5 - 5.0 mmol/L 3.2 (L) CL 98 - 108 mmol/L 111 (H) CO2 TOTAL 23 - 31 mmol/L 17 (L) AGAP 2 - 16 10 BUN 7 - 23 mg/dL 16 GLUCOSE 70 - 110 mg/dL 99 CREATININE 0.50 - 1.04 mg/dL 0.92 eGFR mL/min/1.73m2 77.4 CALCIUM 8.6 - 10.6 mg/dL 9.2 PHOSPHORUS 2.5 - 5.0 mg/dL 3.1 MAGNESIUM 1.7 - 2.4 mg/dL 2.1 BLOOD CULTURE SCREEN Rpt (L): Data is abnormally low (H): Data is abnormally high Rpt: View report in Results Review for more information RADIOLOGY Narrative & Impression Exam: CT Chest Without Contrast, 03/06/2023 5:00 PM. Ordering Physician: TAE TOMLIN. History: Abnormal xray - lung nodule, >= 1 cm . Comparison: Chest radiograph 03/05/2023. CT chest angiogram 10/29/2021. Technique: CT chest was obtained without contrast. CT was performed according to ALARA (As Low As Reasonably Achievable). Technical Quality: Adequate. Findings: Lower neck: Heterogeneous thyroid gland without dominant nodule. Subcutaneous emphysema in the lower neck. Pulmonary: No pleural effusion. Right upper lobe pulmonary nodules measuring up to 1.4 x 1.0 cm, these have decreased in size from prior CT angiogram. Curvilinear regions of atelectasis versus scarring. No focal consolidation or pulmonary mass. Central airways are patent. Cardiomediastinal: Small volume pneumomediastinum. Normal heart size. No pericardial effusion. Normal caliber of the aorta and central pulmonary arteries. No lymphadenopathy. Small amount of residual radiodense fluid in the distal esophagus. No extraluminal contrast is identified. Upper Abdomen: Nonobstructive left renal stones measuring up to 3 mm. Fluid-filled large bowel. Prior cholecystectomy. Osseous: No acute osseous finding. IMPRESSION Impression: 1. Nonspecific small volume pneumomediastinum which extends into the lower neck. No clear etiology is identified. 2. Solid pulmonary nodules in the right upper lobe measuring up to 1.4 cm. These have decreased in size from prior CT chest angiogram 2021 suggestive of a benign etiology. 3. Nonobstructive left renal stones measuring up to 3 mm. RL: [id number] End of Report SSMENT Diagnosis- Mckenna Avila is a 47 year old female here with UTI. Found to have small pneumomediastinum which might be because of hx of recurrent emesis at time of admission. Patient currently asymptomatic regarding pneumomediastinum. She is afebrile, denies worsening chest/pain/SOB, her WBC is within normal range and she is tolerating diet Our recommendations are No surgical intervention is indicated for pneumomediastinum. Continue conservative management. Principal Problem: Nausea & vomiting (03/05/2023) (POA: Yes) Discussed patient with Dr. Sandra Park MD General Surgery. PGY4 THEATRE TECHNICIAN Associated attestation - Carlos Flores Jr., MD - 03/07/2023 10:54 AM HOME THEATRE TECHNICIAN was seen and examined on rounds today with Dr. Jose De Jesus Park. Her findings are as noted in the resident's consult note, her current problems include: Principal Problem: Nausea & vomiting I actively participated in the decision-making process. Patient eating without sequelae, will not pursue further work-up of pneumomediastinum. Please see the resident's note for additional details. Electronically signed by: Carlos Flores MD 03/07/2023 10:53 AM THUY-SURGERY [facility] - Health History and Physical Notes Date/Time Note Provider Source 2023-03-05 22:58:47 XpertMD History & Physical DATE: 03/05/2023 SERVICE: Internal Medicine CHIEF COMPLAINT: Fever, cough, sore throat, body aches HISTORY OF PRESENT ILLNESS Mckenna Avila is a 47 year old female with history of Crohn's, CVA, DVT, HTN, and RA who presents to [facility] from [facility] for UTI and pneumomediastinum. Patient endorses having fever, cough, sore throat, and body aches for 9 days associated with intermittent nausea and vomiting. Upon admit to outside ER, she was found to have positive urinalysis, free air in bladder on CTAP, and acute pneumomediastinum on CT thorax. Pt denies chest pain, SOB, weakness/fatigue, dizziness, or headache. She was negative for covid, flu, and strep at outside ER. Upon initial assessment of patient when she arrived at [facility], patient stated she wants to go home and will most likely not stay the rest of today. Patient was educated on importance of initial observation of pneumomediastinum and treatment of UTI. ALLERGIES Mckenna is allergic to ciprofloxacin and omnicef [cefdinir]. MEDICATIONS No current facility-administered medications for this encounter. Current Discharge Medication List STOP taking these medications codeine-guaifenesin 10-100 mg/5 mL oral solution Comments: Reason for Stopping: codeine-guaifenesin 10-100 mg/5 mL oral solution Comments: Reason for Stopping: proMETHazine 25 mg tablet Comments: Reason for Stopping: rivaroxaban (XARELTO ORAL) Comments: Reason for Stopping: albuterol 90 mcg/actuation inhaler Comments: Reason for Stopping: benzonatate 100 mg capsule Comments: Reason for Stopping: furosemide 20 mg tablet Comments: Reason for Stopping: albuterol 90 mcg/actuation inhaler Comments: Reason for Stopping: Dexlansoprazole (DEXILANT) 60 mg capsule Comments: Reason for Stopping: dicyclomine 20 mg tablet Comments: Reason for Stopping: diphenoxylate-atropine (LOMOTIL) 2.5-0.025 mg tablet Comments: Reason for Stopping: famotidine 40 mg tablet Comments: Reason for Stopping: foLIC acid 1 mg tablet Comments: Reason for Stopping: Hydrocodone-Acetaminophen 7.5-300 mg tablet Comments: Reason for Stopping: methocarbamoL 500 mg tablet Comments: Reason for Stopping: predniSONE 10 mg tablet Comments: Reason for Stopping: tiZANidine 4 mg tablet Comments: Reason for Stopping: AIMOVIG AUTOINJECTOR 140 mg/mL AtIn Comments: Reason for Stopping: busPIRone 10 mg tablet Comments: Reason for Stopping: gabapentin 600 mg tablet Comments: Reason for Stopping: LORazepam 1 mg tablet Comments: Reason for Stopping: inFLIXimab (REMICADE) 100 mg injection Comments: Reason for Stopping: metoprolol succinate (TOPROL XL ORAL) Comments: Reason for Stopping: PAST MEDICAL HISTORY Past Medical History: Diagnosis Date Aortic regurgitation Mild, noted on TTE 2014 C. difficile colitis Chronic pain Crohn's disease 1998 Endometriosis Hepatic steatosis On CT scan Kidney stone 2010 Chronic/recurrent Rheumatoid arthritis Temporal arteritis Ulcerative colitis UTI (urinary tract infection) 2011 Chronic/recurrent, requiring multiple abx PAST SURGICAL HISTORY Past Surgical History: Procedure Laterality Date CHOLECYSTECTOMY 2012 HYSTERECTOMY with BSO URETERAL STENT REMOVAL Right 2015 PAST SOCIAL HISTORY Social History Socioeconomic History Marital status: Tobacco Use Smoking status: Never Smokeless tobacco: Never Substance and Sexual Activity Alcohol use: No Alcohol/week: 0.0 standard drinks of alcohol Comment: No alcohol use per pt Drug use: No PAST FAMILY HISTORY Family History Problem Relation Age of Onset Hypertension Father Hypertension Father Hyperlipidemia Mother Hyperlipidemia Mother Colon Cancer Maternal Grandmother 77 REVIEW OF SYSTEMS General: Fever Cardiovascular: No chest pain or palpitation Pulmonary: No shortness of breath or hemoptysis. GI: N/V Urinary: No dysuria or hematuria Musculoskeletal: Upper back pain Skin: No rashes. Neurological: No focal weakness or sensory changes. Psychiatric: No depression PHYSICAL EXAMINATION Vitals: 03/05/23 2252 BP: (!) 140/92 BP Location: Left arm Patient Position: Sitting Pulse: 80 Resp: 18 Temp: 36.6 ?C (97.8 ?F) SpO2: 98% Weight: 72.6 kg (160 lb) Height: 1.702 m (5' 7") General: Lying comfortably in no signs of any acute distress HEENT: Normocephalic atraumatic, extraocular muscles appear intact, mucosa moist, neck supple Heart: S1-S2 RRR, no murmurs, rubs or clicks Lungs: Clear to auscultation bilaterally, no rhonchi rales or wheezes noted GI: Soft, nontender, nondistended, positive bowel sounds ? quadrants Extremities: No clubbing, cyanosis or edema noted Neurologic: Cranial nerves II through XII appear grossly intact, no focal motor or sensory deficits noted Psychiatric: No anxiety or depression noted LABS AND IMAGING No results found for this or any previous visit (from the past 24 hour(s)). Radiology No final results containing an impression from the past 48 hours were found. ASSESSMENT AND PLAN Mckenna Avila is a 47 year old female who presents with fever, cough, sore throat, body aches. Pneumomediastinum Urinary Tract Infection Hypokalemia Aortic Regurgitation Crohn's Disease DVT HTN Rheumatoid Arthritis Plan: 03/05/2023 Notes, events, labs, and imaging reviewed. Home medications reviewed and reconciled as indicated. -Admit to medical floor for inpatient. -CTAP/Chest complete. Notable for pneumomediastinum, resolved thick-walled cavitary lesion of the RUL, and air in bladder concerning for UTI. -Urinalysis positive. Urine culture pending. Blood cultures pending. -Azithromycin and Zosyn given at outside ER. Zosyn continued. -Potassium replaced -IV bolus given and IVF started. -As needed pain and nausea medications. -Full code -Monitor on telemetry -DVT Prophylaxis - Xarelto -Check AM labs. Replete Electrolytes -Monitor kidney function. -Supportive Care Sylvie Smyth, MSN, TERRA [employer]OTTA [employer]OOFER, CAT- XpertMD [facility]
--- NOTE | 2024-01-21 12:13 | RAD REPORT ---
EXAMINATION: TWO VIEW CHEST XR CLINICAL INDICATION: Female, 48 years old. [facility] MAIN COUGH Bed Name: [facility] TECHNIQUE: 2 view radiographs of the chest were performed. COMPARISON: 01/26/2023 FINDINGS: Peripheral right upper lobe opacities appear stable. Remainder of the lungs is clear. No pneumothorax or sizable effusion. The heart is normal in size. Mediastinal contours are unremarkable. IMPRESSION: No acute abnormalities. Stable findings as above.
[2024-01-21 12:25] LABS: Absolute Lymphocytes (CBC) 1.4 K/uL (0.7-4.9); Absolute Monocytes 0.3 K/uL (0.1-1.3); Basophils % 0.2 % (0-1.3); Hematocrit 38.4 % (36.0-45.0); Hemoglobin 13.1 g/dL (12.0-15.0); MCH 33.9 pg (27.0-35.0); MCV 99.9 fL (80-100); MPV 8.9 fL (7.6-11.3); Monocytes % 6.7 % (3.3-12.3); Neutrophils % 63.1 % (41.7-73.7); Nucleated Red Blood Cells % 0.1 % (0-0); Platelets 180 thou/uL (152-406); RBC Red Blood Cell Count 3.85 M/uL (3.86-4.86); Red Cell Distribution Width 13.4 % (12.1-15.2)
[2024-01-21 12:43] LABS: Albumin 4.1 g/dL (3.4-5.0); Albumin/Globulin Ratio 0.8 (1.1-1.8); Bilirubin Total 0.2 mg/dL (0.2-1.0); Protein, Total 9.1 g/dL (6.4-8.2)
[2024-01-21] MEDS ORDERED: FAMOTIDINE 20 MG/2 ML VIAL IV ONE (12:47)
[2024-01-21] MEDS ORDERED: ONDANSETRON 4 MG/2 ML VIAL ONE (12:47)
[2024-01-21] MEDS ORDERED: DICYCLOMINE HCL 20 MG/2 ML AMP IM ONE (12:47)
[2024-01-21] MEDS ORDERED: NA CHLORIDE 0.9% 1,000 ML ONE (12:48)
--- NOTE | 2024-01-21 16:00 | RAD REPORT ---
EXAMINATION: CT Abdomen Pelvis W Contrast CLINICAL INDICATION: Female, 48 years old. vomiting, elevated liver enzymes TECHNIQUE: CT abdomen and pelvis was performed, after the administration of IV contrast, as per [facility] protocol. Axial, sagittal and coronal reconstructions were obtained. One or more of the following dose reduction techniques were used: Automated exposure control, adjustment of the mA and k V according to patient size, and iterative reconstruction. Unless otherwise specified, incidental findings do not require dedicated imaging follow-up. COMPARISON: 08/10/2023 FINDINGS: LOWER CHEST: The visualized lung bases are clear. LIVER: Normal in size and contour. No focal lesion. BILIARY SYSTEM: Status post cholecystectomy. SPLEEN: Normal size. No focal lesion. PANCREAS: No mass, ductal dilation, or betsey-pancreatic fluid. ADRENALS: Normal; no mass. KIDNEYS: Normal size and contour. No hydronephrosis. Tiny nonobstructing left renal calculi largest m easuring 3 mm URINARY BLADDER: Decompressed limiting evaluation. GASTROINTESTINAL TRACT: No evidence of free air, significant intra-abdominal free fluid, bowel obstru ction or abscess. APPENDIX: Normal appendix. LYMPH NODES: No lymphadenopathy. MUSCULOSKELETAL: No acute or suspicious osseous abnormality. Grade 1 spondylolisthesis at L5-S1. ADDITIONAL FINDINGS: Status post hysterectomy. IMPRESSION: No acute or concerning abnormalities seen in the abdomen or pelvis. Incidental findings including nonobstructing left renal small calculi not exceeding 3 mm. Postsurgica l changes as above.
--- NOTE | 2024-01-21 16:07 | ER ---
Nurse's Notes [facility] Name: Mckenna Avila Age: 48 yrs Sex: Female : 1975 Arrival Date: 01/21/2024 Time: 09:57 Bed 6 Private MD: Diagnosis: Nausea with vomiting, unspecified;Abnormal results of liver function studies;Diarrhea, unspecified Presentation: 01/20 10:45 Chief complaint: Patient states: Diagnosed with flu on Sunday, started Tamiflu, started jl7 N/V/D yesterday. Coronavirus screen: At this time, the client does not indicate any symptoms associated with coronavirus-19. Ebola Screen: No symptoms or risks identified at this time. Initial Sepsis Screen: Does the patient meet any 2 criteria? No. Patient's initial sepsis screen is negative. Does the patient have a suspected source of infection? No. Patient's initial sepsis screen is negative. Risk Assessment: Do you want to hurt yourself or someone else? Patient reports no desire to harm self or others. Onset of symptoms was January 16, 2024. 10:45 Method Of Arrival: Ambulatory [facility] 10:45 Acuity: KEIKO 3 jl7 Triage Assessment: 10:48 General: Appears in no apparent distress. uncomfortable, Behavior is calm, cooperative, jl7 appropriate for age. Pain: Denies pain. GI: Reports diarrhea, nausea, vomiting. 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 - Infectious Disease History:: Denies. - Social history:: Smoking status: Patient denies any tobacco usage or history of. Screenin:00 [facility] ED Fall Risk Assessment (Adult) History of falling in the last 3 months, bp including since admission No falls in past 3 months (0 pts) Confusion or Disorientation No (0 pts) Intoxicated or Sedated No (0 pts) Impaired Gait No (0 pts) Mobility Assist Device Used No (0 pt) Altered Elimination No (0 pt) Score/Fall Risk Level 0 - 2 = Low Risk Oriented to surroundings. Abuse screen: Denies threats or abuse. Denies injuries from another. Nutritional screening: No deficits noted. Tuberculosis screening: No symptoms or risk factors identified. Assessment: 11:00 General: Appears in no apparent distress. Behavior is cooperative, appropriate for age, bp anxious. 14:35 Reassessment: Patient appears in no apparent distress at this time. Patient is alert, bp oriented x 3, equal unlabored respirations, skin warm/dry/pink. Vital Signs: 10:45 BP 116 / 87; Pulse 104; Resp 17; Temp 98.1; Pulse Ox 99% ; Weight 72.57 kg; Height 5 jl7 ft. 7 in. ; Pain 5/10; 14:34 BP 156 / 100; Pulse 78; Resp 15; Pulse Ox 99% ; bp 16:21 BP 147 / 87; Pulse 75; Resp 16; Pulse Ox 99% ; bp 10:45 Body Mass Index 25.06 (72.57 kg, 170.18 cm) jl7 10:45 Pain Scale: Adult [facility] ED Course: 10:00 Patient arrived in ED. al6 10:03 Andrés Marley PA is PHCP. cp 10:03 Hector Love MD is Attending Physician. cp 10:47 Triage completed. jl7 10:48 Arm band placed on right wrist. jl7 11:00 Patient has correct armband on for positive identification. bp 11:10 CBC with Diff Sent. bc6 11:10 CMP Sent. bc6 11:10 Lipase Sent. bc6 11:11 Initial lab(s) drawn, by me, sent to lab. Missed attempt(s): 24 gauge in right forearm. bc6 Bleeding controlled, band aid applied, catheter tip intact. 11:15 XRAY Chest Pa And Lat (2 Views) In Process Unspecified. EDMS 12:19 Tom Hernandez, RN is Primary Nurse. bp 12:21 Lab(s) recollected, by me, sent to lab. Inserted saline lock: 20 gauge in left forearm, hb using aseptic technique. ,using aseptic technique. US GUIDED Blood collected. Flushed with 10 mL NS. 14:51 CT Abd/Pelvis - IV Contrast Only In Process Unspecified. EDMS 16:22 Provided Education on: n/a. bp 16:22 No provider procedures requiring assistance completed. IV discontinued, intact, bp bleeding controlled, No redness/swelling at site. Pressure dressing applied. Administered Medications: 12:30 Drug: Dicyclomine IM 20 mg IM once Route: IM; Site: right gluteus; bp 16:13 Follow up: Response: No adverse reaction bp 12:30 Drug: NS 0.9% IV 1000 ml IV at 1000 ml once; to be given as a bolus over 60 minutes bp Route: IV; Rate: 1000 ml; Site: left antecubital; 16:23 Follow up: IV Status: Completed infusion bp 13:12 Drug: Ondansetron IVP 4 mg IVP once; over 2 minutes Route: IVP; Site: left antecubital; bp 16:13 Follow up: Response: No adverse reaction bp 13:12 Drug: Famotidine IVP 20 mg IVP once; dilute with 10 mL 0.9% NaCl; give over 2 minutes bp Route: IVP; Site: left antecubital; 16:13 Follow up: Response: No adverse reaction bp Medication: 16:22 VIS not applicable for this client. bp Outcome: 16:06 Discharge ordered by MD. cp 16:22 Discharged to home ambulatory, with family, bp 16:22 Condition: stable 16:22 Discharge instructions given to patient, Instructed on discharge instructions, follow up and referral plans. medication usage, Demonstrated understanding of instructions, follow-up care, medications, Prescriptions given X 2, 16:23 Patient left the ED. bp Signatures: Dispatcher [employer] EDMS Andrés Marley PA PA cp Alisa Dixon RN RN hb Leal, Jahala, RN RN jl7 Tom Hernandez RN RN bp Zayda Ferrari bc6 Gail Rodriguez6
--- NOTE | 2024-01-21 16:07 | EDPHYS ---
Physician Documentation [facility] Name: Mckenna Avila Age: 48 yrs Sex: Female : 1975 Arrival Date: 01/21/2024 Time: 09:57 Bed 6 Private MD: ED Physician Hector Love HPI: 01/20 10:55 This 48 yrs old Female presents to ER via Ambulatory with complaints of Flu Symptoms, cp Diarrhea, throwing up. 10:55 The patient presents to the emergency department with nausea, that is moderate, cp vomiting, that is intermittent, described as blood streaked, diarrhea, that is continuous. Onset: The symptoms/episode began/occurred yesterday. Possible causes: diagnosed with influenza 3 days ago. 10:55 Associated signs and symptoms: Pertinent positives: anorexia, cough, Pertinent cp negatives: dysuria, fever, GI bleeding. Severity of symptoms: in the emergency department the symptoms are unchanged despite home interventions. 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 - Infectious Disease History:: Denies. - Social history:: Smoking status: Patient denies any tobacco usage or history of. ROS: 11:00 Constitutional: Positive for poor PO intake, Negative for fever, cp 11:00 Eyes: Negative for injury, pain, redness, and discharge, cp 11:00 ENT: Negative for drainage from ear(s), ear pain, sore throat, difficulty swallowing, difficulty handling secretions, 11:00 Cardiovascular: Negative for chest pain, 11:00 Respiratory: Positive for cough, 11:00 Abdomen/GI: Positive for nausea, vomiting, and diarrhea, 11:00 : Negative for urinary symptoms, 11:00 Neuro: Negative for altered mental status, dizziness, headache, 11:00 All other systems are negative, Exam: 11:05 Constitutional: The patient appears in no acute distress, alert, awake, non-toxic, well cp developed, well nourished, uncomfortable, 11:05 Head/Face: Normocephalic, atraumatic. cp 11:05 Eyes: Periorbital structures: appear normal, Conjunctiva: normal, no exudate, no injection, Sclera: no appreciated abnormality, Lids and lashes: appear normal, bilaterally, 11:05 ENT: External ear(s): are unremarkable, Nose: is normal, Mouth: Lips: moist, Oral mucosa: moist, Posterior pharynx: Airway: no evidence of obstruction, patent, 11:05 Chest/axilla: Inspection: normal, 11:05 Cardiovascular: Rate: tachycardic, Rhythm: regular, 11:05 Respiratory: the patient does not display signs of respiratory distress, Respirations: normal, no use of accessory muscles, no retractions, labored breathing, is not present, Breath sounds: bronchial sounds, that are mild, are heard diffusely, stridor, is not appreciated, wheezing: is not appreciated, 11:05 Abdomen/GI: Inspection: abdomen appears normal, Bowel sounds: active, all quadrants, Palpation: soft, in all quadrants, mild abdominal tenderness, in the right upper quadrant and left upper quadrant, rebound tenderness, is not appreciated, involuntary guarding, is not appreciated, 11:05 Back: CVA tenderness, is absent, 11:05 Neuro: Orientation: to person, place \T\ time. Mentation: is normal, Motor: moves all fours, strength is normal, Sensation: is normal, Vital Signs: 10:45 BP 116 / 87; Pulse 104; Resp 17; Temp 98.1; Pulse Ox 99% ; Weight 72.57 kg; Height 5 jl7 ft. 7 in. ; Pain 5/10; 14:34 BP 156 / 100; Pulse 78; Resp 15; Pulse Ox 99% ; bp 16:21 BP 147 / 87; Pulse 75; Resp 16; Pulse Ox 99% ; bp 10:45 Body Mass Index 25.06 (72.57 kg, 170.18 cm) jl7 10:45 Pain Scale: Adult jl7 MDM: 10:45 Medical Screening Exam initiated cp 16:05 Data reviewed: vital signs, nurses notes, lab test result(s), radiologic studies, CT cp scan, plain films. 16:05 Differential diagnosis: gastritis, pancreatitis, appendicitis, diverticulitis, viral cp gastroenteritis, gastroenteritis, choledocholithiasis. I considered the following discharge prescriptions or medication management in the emergency department Medications were administered in the Emergency Department. See MAR. Counseling: I had a detailed discussion with the patient and/or guardian regarding the historical points, exam findings, and any diagnostic results supporting the discharge/admit diagnosis, lab results, radiology results, to return to the emergency department if symptoms worsen or persist or if there are any questions or concerns that arise at home. Response to treatment: the patient's symptoms have markedly improved after treatment, and as a result, I will discharge patient. Special discussion: Based on the patient's Hx, exam, and Dx evaluation, there is no indication for emergent surgery or inpatient Tx. It is understood by the patient/guardian that if the Sx's persist or worsen they need to return immediately for re-evaluation. 01/20 10:50 Order name: CBC with Diff; Complete Time: 12:33 01/20 12:33 Interpretation: Normal except: RBC 3.85. 01/20 10:50 Order name: CMP; Complete Time: 14:20 01/20 14:23 Interpretation: Normal except: NA 134; CL 108; CO2 18; GLUC 109; CRE 1.13; GFR 60; AST cp 65; ALT 85; ALK 210; GLOB 5.0; A/G 0.8. 01/20 10:50 Order name: Lipase; Complete Time: 14:20 cp 01/20 10:50 Order name: XRAY Chest Pa And Lat (2 Views); Complete Time: 12:33 01/20 12:33 Interpretation: Report reviewed. 01/20 14:24 Order name: CT Abd/Pelvis - IV Contrast Only; Complete Time: 16:05 01/20 10:50 Order name: IV Saline Lock; Complete Time: 13:12 cp 01/20 10:50 Order name: Labs collected and sent; Complete Time: 11:10 01/20 11:28 Order name: Labs - recollect needed: recollect lavender top; Complete Time: 12:29 bd 01/20 12:06 Order name: Labs - recollect needed: recollect green top; Complete Time: 13:11 bd 01/20 15:45 Order name: PO challenge; Complete Time: 16:13 cp Administered Medications: 12:30 Drug: Dicyclomine IM 20 mg IM once Route: IM; Site: right gluteus; bp 16:13 Follow up: Response: No adverse reaction bp 12:30 Drug: NS 0.9% IV 1000 ml IV at 1000 ml once; to be given as a bolus over 60 minutes bp Route: IV; Rate: 1000 ml; Site: left antecubital; 16:23 Follow up: IV Status: Completed infusion bp 13:12 Drug: Ondansetron IVP 4 mg IVP once; over 2 minutes Route: IVP; Site: left antecubital; bp 16:13 Follow up: Response: No adverse reaction bp 13:12 Drug: Famotidine IVP 20 mg IVP once; dilute with 10 mL 0.9% NaCl; give over 2 minutes bp Route: IVP; Site: left antecubital; 16:13 Follow up: Response: No adverse reaction bp Disposition: 19:22 Co-signature as Attending Physician, Hector Love MD I reviewed the patient's care rn provided by the Advanced Practice Provider and agree with the diagnosis and treatment plan. Disposition Summary: 01/21/24 16:06 Discharge Ordered Notes: Location: Home cp Problem: new cp Symptoms: have improved cp Condition: Stable cp Diagnosis - Nausea with vomiting, unspecified cp - Abnormal results of liver function studies cp - Diarrhea, unspecified cp Followup: cp - With: Private Physician - When: 2 - 3 days - Reason: Recheck today's complaints Discharge Instructions: - Discharge Summary Sheet cp - Food Choices to Help Relieve Diarrhea, Adult cp - Diarrhea, Adult cp - Nausea and Vomiting, Adult cp - Form - Return To Work cp Forms: - Medication Reconciliation Form cp - Antibiotic Education cp - Prescription Opioid Use cp - Patient Portal Instructions cp - Leadership Thank You Letter cp Prescriptions: - Zofran 4 mg Oral Tablet - take 1 tablet ORAL route every 12 hours As needed; 20 tablet; Refills: 0, cp Product Selection Permitted - dicyclomine 20 mg Oral tablet - take 1 tablet ORAL route 4 times per day; 30 tablet; Refills: 0, Product cp Selection Permitted Signatures: Dispatcher [employer] Tere Caal Roman, MD MD rn Page, Corey, PA PA cp Ariela Stark RN RN jl7 Tom Hernandez RN RN bp Corrections: (The following items were deleted from the chart) 14:23 14:23 Normal except: NA 134; CL 108; CO2 18; GLUC 109; CRE 1.13; GFR 60; AST 65; ALT cp 85; ALK 210. cp
[2024-01-21 20:22] VITALS: TEMP 98.1; O2SAT 99
[2024-01-21 20:24] VITALS: BP 147/87
== END 2024-01-21 16:23 | disposition home or self-care (01) ==
LOC: ER 09:57
DX: R11.2 Nausea with vomiting, unspecified (principal); R94.5 Abnormal results of liver function studies; R19.7 Diarrhea, unspecified; Z86.718 Personal history of other venous thrombosis and embolism; Z79.01 Long term (current) use of anticoagulants
CPT/HCPCS: 96361; 85025; 36415; 83690; 80053; 74177; 71046; 96375; 96372; 96374; 99284; Q9967; J0500; J2405; J7030

== ENCOUNTER 2024-01-22 08:03 | Day surgery (SDC) | payer BC ==
[2024-01-22] MEDS: LIDOCAINE 1% MPF 5 ML VIAL ONE (08:42)
[2024-01-22] MEDS: DIPHENHYDRAMINE 25 MG TAB/CAP ONE (08:43)
[2024-01-22] MEDS: ACETAMINOPHEN 500 MG TAB ONE (08:43)
[2024-01-22] MEDS: PROMETHAZINE INJ 25 MG/ML AMP ONE (08:43)
[2024-01-22] MEDS: INFLIXIMAB-ABDA 700 MG in NA CHLORIDE 0.9% 250 ML IV ONE (09:00)
[2024-01-22 11:24] VITALS: BMI 24.3
[2024-01-22] MEDS: NA CHLORIDE 0.9% 100 ML ONE (11:26)
[2024-01-22 11:40] VITALS: O2SAT 98
[2024-01-22 11:41] VITALS: TEMP 97
[2024-01-22 11:43] VITALS: BP 110/78
== END 2024-01-22 11:30 | disposition home or self-care (01) ==
LOC: DS 08:03
PROVIDERS: ATTEND Internal Medicine Gastroenterology
DX: K50.911 Crohn's disease, unspecified, with rectal bleeding (principal)
CPT/HCPCS: 96365; 96366; J2550; Q5104; J2003; J7050

== ENCOUNTER 2024-02-21 08:43 | Day surgery (SDC) | payer BC ==
[2024-02-21] MEDS ORDERED: LIDOCAINE 1% MPF 5 ML VIAL ONE (08:53)
[2024-02-21] MEDS ORDERED: NA CHLORIDE 0.9% 250 ML ONE (09:08)
[2024-02-21] MEDS: DIPHENHYDRAMINE 25 MG TAB/CAP ONE (09:13)
[2024-02-21] MEDS: PROMETHAZINE INJ 25 MG/ML AMP ONE (09:13)
[2024-02-21] MEDS: ACETAMINOPHEN 500 MG TAB ONE (09:13)
[2024-02-21] MEDS: INFLIXIMAB-ABDA 700 MG in NA CHLORIDE 0.9% 250 ML IV SCH (09:14)
[2024-02-21 19:25] VITALS: BP 162/92; TEMP 97.9; O2SAT 100; BMI 25.0
== END 2024-02-21 12:03 | disposition home or self-care (01) ==
LOC: DS 08:43
PROVIDERS: ATTEND Internal Medicine Gastroenterology
DX: K50.911 Crohn's disease, unspecified, with rectal bleeding (principal)
CPT/HCPCS: 96365; 96366; J2550; Q5104; J2003; J7050 ×2

== ENCOUNTER 2024-03-08 16:00 | Observation (INO) | payer BC ==
[2024-03-08] MEDS ORDERED: NA CHLORIDE 0.9% 2,000 ML ONE (17:54)
[2024-03-08] MEDS ORDERED: HYDROCORTISONE SUC 100 MG INJ ONE (17:54)
[2024-03-08 18:01] LABS: Absolute Eosinophils 0.1 K/uL (0-0.5); Absolute Lymphocytes (CBC) 2.3 K/uL (0.7-4.9); Absolute Monocytes 0.8 K/uL (0.1-1.3); Absolute Neutrophil 7.3 K/uL (1.8-8.0); Basophils % 0.3 % (0-1.3); Eosinophils % 0.8 % (0-4.4); Hematocrit 32.7 % (36.0-45.0); Hemoglobin 11.3 g/dL (12.0-15.0); Lymphocytes % 22.2 % (15.3-44.8); MCH 34.1 pg (27.0-35.0); MCHC 34.6 g/dL (32.0-36.0); MCV 98.5 fL (80-100); MPV 8.5 fL (7.6-11.3); Monocytes % 7.4 % (3.3-12.3); Neutrophils % 69.3 % (41.7-73.7); Platelets 268 thou/uL (152-406); RBC Red Blood Cell Count 3.32 M/uL (3.86-4.86); Red Cell Distribution Width 13.7 % (12.1-15.2)
[2024-03-08 18:08] LABS: PTT, Activated Partial Thromb 40.6 SECONDS (24.3-36.9); Protime INR 1.53
[2024-03-08 18:20] LABS: ALT/SGPT 88 U/L (13-56); AST/SGOT 48 U/L (15-37); Albumin 3.9 g/dL (3.4-5.0); Albumin/Globulin Ratio 0.8 (1.1-1.8); Alkaline Phosphatase 163 U/L (45-117); Anion Gap 12.9 mEq/L (5.0-15.0); BUN Blood Urea Nitrogen 31 mg/dL (7-18); Bicarbonate 22 mEq/L (21-32); Bilirubin Total 0.3 mg/dL (0.2-1.0); Globulin 4.6 g/dL (2.3-3.5); Glomerular Filtration Rate 36 ml/min (=/>90); Glucose Level 92 mg/dL (74-106); Magnesium 2.2 mg/dL (1.6-2.4); NT PRO-BNP 150 pg/mL (<125); Potassium 3.9 mEq/L (3.5-5.1); Protein, Total 8.5 g/dL (6.4-8.2); Sodium Level 131 mEq/L (136-145); T3 Free 2.66 pg/mL (2.18-3.98); T4,Total 9.3 ug/dL (4.8-13.9); Troponin High Sensitivity 10.3 pg/mL (<58.9)
[2024-03-08 18:21] LABS: Bilirubin Direct < 0.2 mg/dL (0-0.2); Bilirubin Indirect, Calculated 0.1 mg/dL (0.2-0.8)
--- NOTE | 2024-03-08 19:22 | EDPHYS ---
Physician Documentation [facility] Name: Mckenna Avila Age: 48 yrs Sex: Female : 1975 Arrival Date: 03/08/2024 Time: 16:00 Bed 5 Private MD: Andrés Dickinson HPI: 03/08 17:25 This 48 yrs old Female presents to ER via Ambulatory with complaints of Dizziness, cp Tremor. 17:25 The patient presents with dizziness, feeling faint, lightheadedness. Onset: The cp symptoms/episode began/occurred today. 17:25 Associated signs and symptoms: Pertinent positives: near-syncope, weakness of legs, cp tremor of left arm, Pertinent negatives: abdominal pain, chest pain, focal weakness, syncope. 17:25 Patient reports symptoms started suddenly couple hours ago and have improved. cp Historical: - Allergies: 17:10 Ciprofloxacin; aa5 17:10 Omnicef; aa5 - PMHx: 17:10 chrons disease; DVT; Kidney stones; Rheumatoid Arthritis; Temporal Arteritits aa5 (Rheumatoid Arthritis); CVA (Unknown); Kidney disease; Kidney infections; 17:10 "high blood pressure and low blood pressure"; aa5 - PSHx: 17:10 Cholecystectomy; hysterectomy; aa5 - Immunization history:: Adult Immunizations unknown. - Infectious Disease History:: Denies. - Social history:: Smoking status: Patient denies any tobacco usage or history of. ROS: 17:30 Constitutional: Negative for fever, cp 17:30 Eyes: Negative for injury, pain, redness, and discharge, cp 17:30 Cardiovascular: Positive for palpitations, Negative for chest pain, 17:30 Respiratory: Negative for cough, wheezing, 17:30 Abdomen/GI: Negative for abdominal pain, 17:30 : Negative for urinary symptoms, 17:30 Neuro: Positive for dizziness, near syncope, weakness, Negative for altered mental status, numbness, 17:30 All other systems are negative, Exam: 17:35 Constitutional: The patient appears in no acute distress, alert, awake, cp non-diaphoretic, non-toxic, well developed, well nourished, 17:35 Head/Face: Normocephalic, atraumatic. cp 17:35 Eyes: Periorbital structures: appear normal, Conjunctiva: normal, no exudate, no injection, Sclera: no appreciated abnormality, Lids and lashes: appear normal, bilaterally, 17:35 ENT: External ear(s): are unremarkable, Nose: is normal, Mouth: Lips: moist, Oral mucosa: moist, Posterior pharynx: Airway: no evidence of obstruction, patent, 17:35 Chest/axilla: Inspection: normal, 17:35 Cardiovascular: Rate: bradycardic, Rhythm: regular, Edema: is not appreciated, JVD: is not appreciated, 17:35 Respiratory: the patient does not display signs of respiratory distress, Respirations: normal, no use of accessory muscles, no retractions, labored breathing, is not present, Breath sounds: are clear throughout, no decreased breath sounds, no stridor, no wheezing, 17:35 Abdomen/GI: Inspection: abdomen appears normal, Palpation: abdomen is soft and non-tender, in all quadrants, 17:35 Back: ROM is normal, CVA tenderness, is absent, 17:35 Neuro: Orientation: to person, place \\T\\ time. Mentation: is normal, Motor: moves all fours, strength is normal, Sensation: no obvious gross deficits, 18:10 ECG was reviewed by the Attending Physician. cp Vital Signs: 17:00 BP 70 / 50; Pulse 50; Resp 18 S; Temp 97.7(O); Pulse Ox 100% on R/A; Weight 72.57 kg aa5 (R); Height 5 ft. 7 in. (R); 17:50 BP 55 / 36; Pulse 46; Resp 18 S; Pulse Ox 100% on R/A; aa5 18:02 BP 57 / 39; Pulse 45; Resp 16 S; Pulse Ox 99% on R/A; aa5 18:21 BP 73 / 52; Pulse 44; Resp 16 S; Pulse Ox 100% on R/A; aa5 18:30 BP 86 / 61; Pulse 42; Resp 16 S; Pulse Ox 100% on R/A; aa5 18:45 BP 90 / 57; Pulse 41; Resp 16 S; Pulse Ox 100% on R/A; aa5 19:00 BP 106 / 58; Pulse 50; Resp 18 S; Pulse Ox 100% on R/A; aa5 19:20 BP 105 / 63; Pulse 90; Resp 18 S; Pulse Ox 99% on R/A; ha1 20:40 BP 139 / 96; Pulse 68; Resp 18; Pulse Ox 99% on R/A; ha1 21:00 BP 132 / 87; Pulse 71; Resp 17 S; Pulse Ox 98% on R/A; ha1 17:00 Body Mass Index 25.06 (72.57 kg, 170.18 cm) aa5 MDM: 19:03 Medical Screening Exam initiated april 19:15 Data reviewed: vital signs, nurses notes, lab test result(s), EKG, radiologic studies, cp CT scan, plain films, and as a result, I will admit patient. 19:15 I considered the following discharge prescriptions or medication management in the emergency department Medications were administered in the Emergency Department. See MAR. Independent interpretation of the following test(s) in the Emergency Department EKG: See my EKG interpretation above. Care significantly affected by the following chronic conditions: Chronic Kidney Disease, rheumatoid arthritis. 03/08 17:20 Order name: Basic Metabolic Panel; Complete Time: 19:09 03/08 18:28 Interpretation: Normal except: NA 131; BUN 31; CRE 1.74; GFR 36. 03/08 17:20 Order name: CBC with Diff; Complete Time: 18:27 03/08 18:28 Interpretation: Normal except: RBC 3.32; HGB 11.3; HCT 32.7. 03/08 17:20 Order name: LFT's; Complete Time: 19: 03/08 18:28 Interpretation: Normal except: AST 48; ALT 88; ALK 163; IBILI, CALC 0.1; TP 8.5; GLOB cp 4.6; A/G 0.8. 03/08 17:20 Order name: Magnesium; Complete Time: 19:09 03/08 17:20 Order name: NT PRO-BNP; Complete Time: 19: 03/08 18:29 Interpretation: NT PRO-BNP 150; Reviewed. 03/08 17:20 Order name: PT-INR; Complete Time: 18:27 03/08 17:20 Order name: Troponin HS; Complete Time: 19: 03/08 17:20 Order name: Blood Culture Adult (2) 03/08 17:20 Order name: Lactate w/ 2H reflex if indic.; Complete Time: 18:27 03/08 17:20 Order name: Ptt, Activated; Complete Time: 18:27 cp 03/08 17:20 Order name: Urinalysis w/ reflexes; Complete Time: 20:18 cp 03/08 17:20 Order name: TSH; Complete Time: 19:09 cp 03/08 18:29 Interpretation: Abnormal: TSH 27.200. cp 03/08 17:20 Order name: T3 Free; Complete Time: 19:09 cp 03/08 17:20 Order name: T4,Total; Complete Time: 19:09 cp 03/08 17:20 Order name: Cortisol 03/08 17:49 Order name: CRP; Complete Time: 18:38 cp 03/08 18:23 Order name: T4 Free; Complete Time: 19:09 EDMS 03/08 20:00 Order name: High Sensitivity-CRP EDAR 03/08 20:01 Order name: Urine Culture EDAR 03/08 20:16 Order name: Liver (Hepatic) Function EDAR 03/08 20:16 Order name: CBC with Automated Diff EDAR 03/08 20:16 Order name: CBC with Automated Diff EDAR 03/08 20:16 Order name: Comprehensive Metabolic Panel EDAR 03/08 20:16 Order name: Comprehensive Metabolic Panel EDAR 03/08 20:16 Order name: Troponin High Sensitivity EDAR 03/08 20:16 Order name: Troponin High Sensitivity [facility] 03/08 20:16 Order name: Troponin High Sensitivity [facility] 03/08 20:16 Order name: Troponin High Sensitivity [facility] 03/08 17:20 Order name: XRAY Chest (1 view); Complete Time: 20:18 cp 03/08 18:38 Order name: CT Head Brain wo Cont; Complete Time: 20:18 cp 03/08 17:20 Order name: Cardiac monitoring; Complete Time: 17:51 cp 03/08 17:20 Order name: EKG - Nurse/Tech; Complete Time: 18:15 cp 03/08 17:20 Order name: IV Saline Lock; Complete Time: 17:51 cp 03/08 17:20 Order name: Labs collected and sent; Complete Time: 17:51 cp 03/08 17:20 Order name: O2 Per Protocol; Complete Time: 17:51 cp 03/08 17:20 Order name: O2 Sat Monitoring; Complete Time: 17:51 cp 03/08 17:20 Order name: IV Saline Lock - Large Bore; Complete Time: 17:51 cp 03/08 17:20 Order name: Vital Signs; Complete Time: 17:51 cp EC:10 Rate is 45 beats/min. Rhythm is regular. FL interval is normal. QRS interval is normal. cp QT interval is prolonged at 514 msec. T waves are Inverted in leads III, aVR. Interpreted by me. Reviewed by me. Administered Medications: 18:00 Drug: NS 0.9% IV (30 ml/kg) 30 ml/kg IV at bolus once; Sepsis Protocol; to be given as aa5 a bolus over 90 minutes Route: IV; Rate: bolus; Site: right forearm; 22:00 Follow up: Response: No adverse reaction; IV Status: Completed infusion; IV Intake: ha1 2177ml 18:00 Drug: Solu-CORTEF IVP 100 mg IVP once Route: IVP; Site: right forearm; aa5 18:10 Follow up: Response: No adverse reaction aa5 20:40 Drug: fentaNYL (PF) IVP 25 mcg IVP once Route: IVP; Site: right forearm; ha1 21:00 Follow up: Response: No adverse reaction; Marked relief of symptoms; Pain is decreased; ha1 RASS: Alert and Calm (0) 20:43 Drug: Piperacillin-Tazobactam IVPB 3.375 grams IVPB once over 60 mins; (mix in NS 100 ha1 mL) Route: IVPB; Infused Over: 60 mins; Site: right forearm; 21:26 Follow up: Response: No adverse reaction; IV Status: Completed infusion; IV Intake: ha1 100ml Disposition Summary: 03/08/24 19:20 Hospitalization Ordered Notes: Hospitalization Status: Inpatient Admission cp Provider: Jeovanny Antoine cp Location: Telemetry/[facility] (Inpatient) cp Condition: Stable cp Problem: new cp Symptoms: have improved cp Bed/Room Type: Standard cp Room Assignment: 401(03/08/24 20:35) hw Diagnosis - Hypotension, unspecified cp - Dizziness and giddiness cp - UTI/ Urinary tract infection, site not specified cp Forms: - Medication Reconciliation Form cp - SBAR form cp - Leadership Thank You Letter cp Signatures: Dispatcher [employer] Andrés Smith MD MD cha Calderon, Audri, RN RN aa5 Andrés Marley PA PA cp Ayala, Heidy RN RN ha1 Nadeen Kowalski Corrections: (The following items were deleted from the chart) 17:12 17:10 PMHx: Kidney stone; aa5 aa5 17:21 17:21 BASIC METABOLIC PANEL+C.LAB.BRZ ordered. EDMS EDMS 17:21 17:21 CBC+H.LAB.BRZ ordered. EDMS EDMS 17:21 17:21 HEPATIC FUNCTION+C.LAB.BRZ ordered. EDMS EDMS 17:21 17:21 MAGNESIUM+C.LAB.BRZ ordered. EDMS EDMS 17:21 17:21 PROBNP+C.LAB.BRZ ordered. EDMS EDMS 17:21 17:21 PROTIME (+INR)+COAG.LAB.BRZ ordered. EDMS EDMS 17:21 17:21 Troponin High Sensitivity+C.LAB.BRZ ordered. EDMS EDMS 17:21 17:21 BLOOD CULTURE*+BA.LAB.BRZ ordered. EDMS EDMS 17:21 17:21 LACTATE+C.LAB.BRZ ordered. EDMS EDMS 17:21 17:21 PTT, ACTIVATED+COAG.LAB.BRZ ordered. EDMS EDMS 17:21 17:21 Urinalysis+U.LAB.BRZ ordered. EDMS EDMS 17:21 17:21 THYROID STIMULAT HORMONE+C.LAB.BRZ ordered. EDMS EDMS 17:21 17:21 T3 FREE+C.LAB.BRZ ordered. EDMS EDMS 17:21 17:21 T4,TOTAL+C.LAB.BRZ ordered. EDMS EDMS 17:21 17:21 Cortisol+C.LAB.BRZ ordered. EDMS EDMS 17:21 17:21 Chest Single View+RAD.RAD.BRZ ordered. EDMS EDMS 17:49 17:49 C-REACTIVE PROTEIN+C.LAB.BRZ ordered. EDMS EDMS 18:20 17:20 Accucheck ordered. cp aa5 20:35 19:20 cp hw 20:44 19:21 Ebe ordered. cp ha1
--- NOTE | 2024-03-08 19:22 | ER ---
Nurse's Notes [facility] Name: Mckenna Avila Age: 48 yrs Sex: Female : 1975 Arrival Date: 03/08/2024 Time: 16:00 Bed 5 Private MD: Diagnosis: Hypotension, unspecified;Dizziness and giddiness;UTI/ Urinary tract infection, site not specified Presentation: 03/08 17:00 Chief complaint: Patient states: "I started feeling dizzy a couple hours ago, I started aa5 having tremors, my legs felt like they were going to give out a few times, and I felt hot". Pt also states "in the waiting room I got a left arm tremor and now it hurts really bad". 17:00 Coronavirus screen: diarrhea, nausea. Ebola Screen: Patient denies travel to an [facility] Ebola-affected area in the 21 days before illness onset. Initial Sepsis Screen: Does the patient meet any 2 criteria? Systolic BP < 90 mmHg. Does the patient have a suspected source of infection? No. Patient's initial sepsis screen is negative. Risk Assessment: Do you want to hurt yourself or someone else? Patient reports no desire to harm self or others. Onset of symptoms was March 08, 2024. 17:00 Acuity: KEIKO 2 aa5 17:00 Method Of Arrival: Ambulatory aa5 Historical: - Allergies: 17:10 Ciprofloxacin; aa5 17:10 Omnicef; aa5 - PMHx: 17:10 chrons disease; DVT; Kidney stones; Rheumatoid Arthritis; Temporal Arteritits aa5 (Rheumatoid Arthritis); CVA (Unknown); Kidney disease; Kidney infections; 17:10 "high blood pressure and low blood pressure"; aa5 - PSHx: 17:10 Cholecystectomy; hysterectomy; aa5 - Immunization history:: Adult Immunizations unknown. - Infectious Disease History:: Denies. - Social history:: Smoking status: Patient denies any tobacco usage or history of. Screenin:00 [facility] ED Fall Risk Assessment (Adult) History of falling in the last 3 months, aa5 including since admission Yes- physiologic fall (2 pts) Confusion or Disorientation No (0 pts) Intoxicated or Sedated No (0 pts) Impaired Gait Yes (1 pt) Mobility Assist Device Used No (0 pt) Altered Elimination No (0 pt) Score/Fall Risk Level 3 or more points = High Risk Oriented to surroundings, Maintained a safe environment, Educated pt \\T\\ family on fall prevention, incl call for assistance when getting out of bed, Assessed \\T\\ reinforced patient's understanding of fall precautions. Abuse screen: Denies threats or abuse. Nutritional screening: No deficits noted. Tuberculosis screening: No symptoms or risk factors identified. Assessment: 17:00 General: Appears uncomfortable, Behavior is calm, cooperative, Pt states "My blood aa5 pressure goes very very low and then it gets really really high and they've tried to put me on medicine but it just makes it worse" . Pain: Complains of pain in head and left arm Pain currently is 8 out of 10 on a pain scale. Quality of pain is described as aching, Pain began 1 day ago. Is continuous. Neuro: Level of Consciousness is awake, alert, obeys commands, Oriented to person, place, time, situation, Audio Experience Expert are equal bilaterally Moves all extremities. Speech is normal, Facial symmetry appears normal, Reports dizziness. Cardiovascular: Denies chest pain, syncope, Heart tones S1 S2 present Rhythm is regular. Respiratory: Airway is patent Respiratory effort is even, unlabored, Respiratory pattern is regular, symmetrical, Denies cough, shortness of breath. GI: Abdomen is round non-distended, Bowel sounds present X 4 quads. Abd is soft and non tender X 4 quads. Reports diarrhea, nausea, reports hx of chrons Patient currently denies vomiting. : No signs and/or symptoms were reported regarding the genitourinary system. EENT: No signs and/or symptoms were reported regarding the EENT system. Derm: Skin is pink, warm \\T\\ dry. Musculoskeletal: Range of motion: intact in all extremities. 18:00 Reassessment: Patient is alert, oriented x 3, equal unlabored respirations, skin aa5 warm/dry/pink. Pt currently lying supine. . 18:45 Reassessment: Patient is alert, oriented x 3, equal unlabored respirations, skin aa5 warm/dry/pink. Dizziness has improved. . 19:30 General: Appears comfortable, Behavior is calm, cooperative. Pain: Complains of pain in ha1 BACK AND HEAD Pain currently is 8 out of 10 on a pain scale. Quality of pain is described as aching, Pain began gradually. Neuro: Level of Consciousness is awake, alert, obeys commands, Oriented to person, place, time, situation. Neuro: Reports headache in entire. Cardiovascular: Denies chest pain, Heart tones S1 S2 present Pulses are all present. Rhythm is regular. Respiratory: Airway is patent Respiratory effort is even, unlabored, Respiratory pattern is regular, symmetrical. GI: Abdomen is round non-distended, obese. Derm: Skin is pink, warm \\T\\ dry. Musculoskeletal: Reports pain in back. 20:30 Reassessment: Patient and/or family updated on plan of care and expected duration. Pain ha1 level reassessed. Patient is alert, oriented x 3, equal unlabored respirations, skin warm/dry/pink. 21:26 Reassessment: Patient and/or family updated on plan of care and expected duration. Pain ha1 level reassessed. Patient is alert, oriented x 3, equal unlabored respirations, skin warm/dry/pink. PAIN 4/10 Patient states feeling better. Patient states symptoms have improved. Vital Signs: 17:00 BP 70 / 50; Pulse 50; Resp 18 S; Temp 97.7(O); Pulse Ox 100% on R/A; Weight 72.57 kg aa5 (R); Height 5 ft. 7 in. (R); 17:50 BP 55 / 36; Pulse 46; Resp 18 S; Pulse Ox 100% on R/A; aa5 18:02 BP 57 / 39; Pulse 45; Resp 16 S; Pulse Ox 99% on R/A; aa5 18:21 BP 73 / 52; Pulse 44; Resp 16 S; Pulse Ox 100% on R/A; aa5 18:30 BP 86 / 61; Pulse 42; Resp 16 S; Pulse Ox 100% on R/A; aa5 18:45 BP 90 / 57; Pulse 41; Resp 16 S; Pulse Ox 100% on R/A; aa5 19:00 BP 106 / 58; Pulse 50; Resp 18 S; Pulse Ox 100% on R/A; aa5 19:20 BP 105 / 63; Pulse 90; Resp 18 S; Pulse Ox 99% on R/A; ha1 20:40 BP 139 / 96; Pulse 68; Resp 18; Pulse Ox 99% on R/A; ha1 21:00 BP 132 / 87; Pulse 71; Resp 17 S; Pulse Ox 98% on R/A; ha1 17:00 Body Mass Index 25.06 (72.57 kg, 170.18 cm) aa5 ED Course: 16:02 Patient arrived in ED. im 17:00 Arm band placed on Patient placed in an exam room, on a stretcher. aa5 17:00 Patient has correct armband on for positive identification. Placed in gown. Bed in low aa5 position. Call light in reach. Side rails up X2. Client placed on continuous cardiac and pulse oximetry monitoring. NIBP monitoring applied. channeling machine operator on. Pulse ox on. NIBP on. 17:01 Andrés Marley PA is PHCP. cp 17:01 Victorino Larsen MD is Attending Physician. cp 17:09 Sarah Abdi RN is Primary Nurse. aa5 17:14 Triage completed. aa5 17:47 Initial lab(s) drawn, by me, sent to lab. aa5 17:47 First set of blood cultures drawn by me. aa5 17:51 Inserted saline lock: 22 gauge in right forearm, using aseptic technique. Flushed with aa5 10 mL NS. 18:10 Second set of blood cultures drawn by me. aa5 18:15 Inserted saline lock: 22 gauge in right hand, using aseptic technique. Flushed with 10 aa5 mL NS. 19:00 Report given to SISSY Sanchez. aa5 19:03 Andrés Bishop MD is Attending Physician. [facility] 19:03 XRAY Chest (1 view) In Process Unspecified. EDMS 19:19 No provider procedures requiring assistance completed. aa5 19:20 Jeovanny Antoine MD is Hospitalizing Provider. cp 19:29 CT Head Brain wo Cont In Process Unspecified. EDMS 19:44 Urine collected: clean catch specimen, clear. sa1 22:23 Provided Education on: ADMITTED . ha1 22:23 Patient admitted, IV remains in place. ha1 Administered Medications: 18:00 Drug: NS 0.9% IV (30 ml/kg) 30 ml/kg IV at bolus once; Sepsis Protocol; to be given as aa5 a bolus over 90 minutes Route: IV; Rate: bolus; Site: right forearm; 22:00 Follow up: Response: No adverse reaction; IV Status: Completed infusion; IV Intake: ha1 2177ml 18:00 Drug: Solu-CORTEF IVP 100 mg IVP once Route: IVP; Site: right forearm; aa5 18:10 Follow up: Response: No adverse reaction aa5 20:40 Drug: fentaNYL (PF) IVP 25 mcg IVP once Route: IVP; Site: right forearm; ha1 21:00 Follow up: Response: No adverse reaction; Marked relief of symptoms; Pain is decreased; ha1 RASS: Alert and Calm (0) 20:43 Drug: Piperacillin-Tazobactam IVPB 3.375 grams IVPB once over 60 mins; (mix in NS 100 ha1 mL) Route: IVPB; Infused Over: 60 mins; Site: right forearm; 21:26 Follow up: Response: No adverse reaction; IV Status: Completed infusion; IV Intake: ha1 100ml Medication: 19:00 VIS not applicable for this client. aa5 Intake: 21:26 IV: 100ml; Total: 100ml. ha1 22:00 IV: 2177ml; Total: 2277ml. ha1 Outcome: 19:20 Decision to Hospitalize by Provider. cp 22:22 Admitted to Tele accompanied by tech, via wheelchair, room 401, with chart, ha1 22:22 Condition: stable 22:22 Instructed on the need for admit, Demonstrated understanding of instructions, 22:25 Patient left the ED. ha1 Signatures: Dispatcher [employer] EDAndrés Palafox MD MD cha Calderon, Audri, RN RN aa5 Andrés Marley, Laura Schmitt cp, RN RN ha1 Jessica Rahman [facility] Corrections: (The following items were deleted from the chart) 17:12 17:10 PMHx: Kidney stone; aa5 aa5
--- NOTE | 2024-03-08 19:40 | RAD REPORT ---
Procedure: Chest Single View HISTORY: Hypotension COMPARISON: 2023 and 2020 FINDINGS: Right upper lobe opacities have partially resolved since 2020. There are changes from the prior exam and likely represent the sequela of prior pneumonia. Lungs appear clear of acute infiltrate. No significant pleural effusion noted. The heart is normal size. IMPRESSION: No acute abnormality is displayed.
--- NOTE | 2024-03-08 19:47 | RAD REPORT ---
EXAM: CT brain without contrast HISTORY: Dizziness COMPARISON: 2022 TECHNIQUE: Multiple contiguous axial images were obtained and a CT of the brain without contrast.. Sagittal and coronal reconstruction performed. Automated exposure control, adjustment of the mA and/or kV according to patient size, and/or iterative reconstruction. Unless otherwise specified, incidental f indings do not require dedicated imaging follow-up FINDINGS: An intracranial bleed is not seen Ventricles are normal caliber No extra-axial fluid collection noted. Mild cerebellar tonsillar ectopia No significant hypodensity within the brain No fluid within the visualized sinuses or mastoids noted. IMPRESSION: No acute intracranial abnormality noted. If the patient continues to have symptoms to suggest an acute intracranial abnormality then MRI of th e brain would be recommended.
[2024-03-08 19:51] LABS: Specific Gravity 1.027 (1.005-1.030); Sqamous Epithelial <5 /HPF (None Seen); Urine Bacteria <20 /HPF (<20); Urine Bilirubin NEGATIVE (Negative); Urine Blood Trace (Negative); Urine Clarity Extremely Turbid (Clear); Urine Color Yellow (Yellow); Urine Crystals Unidentified Few /HPF (None Seen); Urine Culture Reflex Order REFLEXED; Urine Glucose NEGATIVE (Negative); Urine Ketones NEGATIVE (Negative); Urine Microscopic Reflex YN ORDER UMIC; Urine Mucus Slight /HPF (None Seen); Urine Nitrite 2+ (Negative); Urine Protein 1+ (Negative); Urine Urobilinogen Normal (Normal); Urine WBC 20-50 /HPF (<5); Urine WBC Clump Rare /HPF (None Seen); Urine Yeast (Budding) Trace /HPF (None Seen)
--- NOTE | 2024-03-08 20:03 | P.HP ---
Certification for Inpatient Patient admitted to: Observation With expected LOS: <2 Midnights Patient will require the following post-hospital care: None Practitioner: I am a practitioner with admitting privileges, knowledge of patient current condition, hospital course, and medical plan of care. Services: Services provided to patient in accordance with Admission requirements found in Title 42 Section 412.3 of the Code of Federal Regulations Patient History Date of Service: 03/08/24 Reason for admission: Dizziness and leg weakness History of Present Illness: 48-year-old female with past medical history of DVT, Crohn's disease, on chronic anticoagulation with Xarelto, HTN off medications since the last 3 years, giant cell arteritis, rheumatoid arthritis not following with any political advisor, states she was initially placed on 100 mg prednisone dose by her manager location for the temporal arteritis with eye involvement 1 year ago but she self d iscontinued the medication 6 months ago. She states she is not currently on anything except for CellCept and Imuran as well as some muscle relaxant. She states she continues to have intermittent headache which she feels is due to her temporal arteritis. She presented today because of new onset dizziness since the last 2 days, feeling of lightheadedness as well as leg weakness almost as if her legs were giving out. Symptoms has been ongoing for 2 days but much worse today. She felt as if she was going to fall today. She presented to the ED because of symptoms she denies any fever or chills she denies any dysuria she denies any nausea vomiting. She states she continues to take her methocarbamol as well as her tizanidine at the same dosage. She admits to intermittent tremors She denies any change in methocarbamol tizanidine dosage although she is unsure clearly as to who has been prescribing the medication for her. She states she has seen the political advisor 1 but did not go back for follow-up. She has also noticed return back to her manager location were apparently prescribed high-dose prednisone for her. On arrival in the ED her blood pressure was noted in the 70s over 30s, heart rate was bradycardic at 48. EKG shows sinus bradycardia at [address] segment changes. Laboratory workup shows normal hemoglobin of 11.3, BMP was unremarkable except for creatinine of 1.4previous baseline of 1.2, chest x-ray shows no acute infiltrate or right upper lung scar, head CT shows no acute intracranial pathology. Urinalysis is pending. BNP 150. Mild elevated AST ALT and alkaline phosphatase noted TSH was elevated at 27 but normal free T4 and T3. In the ED she received 2 L normal saline bolus, BP has improved to 103/71 now. Allergies cefdinir [From Omnicef] Allergy (Verified 12/20/23 11:21) bloody diarrhea ciprofloxacin [From Cipro] Allergy (Verified 12/20/23 11:21) red rash/hives and hot at iv site Home Medications: Dicyclomine HCl 20 mg PO TID 07/08/20 Gabapentin 800 mg PO TID 07/08/20 LORazepam [Ativan*] 1 mg PO TID 07/08/20 Tizanidine HCl [Zanaflex] 4 mg PO TID 12/30/20 methocarbamoL [Methocarbamol] 750 mg PO BID 12/30/20 Rivaroxaban [Xarelto] 20 mg PO DAILY 04/26/21 azaTHIOprine [Imuran*] 150 mg PO DAILY 10/14/21 inFLIXimab [Infliximab] 700 mg IV SEECOM 10/14/21 Rabeprazole Sodium 20 mg PO DAILY 04/20/22 cycloSPORINE [Restasis] 1 drop EACH EYE BID 04/20/22 Buspirone HCl [Buspar*] 15 mg PO TID 01/24/23 Diphenox/Atropine [Lomotil*] 1 tab PO PRN PRN 01/24/23 Ibuprofen 800 mg PO TID 01/24/23 Aspirin [Aspirin EC] 81 mg PO DAILY #30 tab 01/29/23 Fenofibrate [Tricor*] 48 mg PO DAILY 30 Days #30 tab 08/11/23 Hydrocodone/Acetaminophen [Hydrocodone-Acetamin 10-325 mg] 1 tab PO TID #30 tab 08/11/23 Ondansetron [Zofran (Odt)*] 8 mg PO TID PRN 10 Days #30 tab 08/11/23 Promethazine Tab [Phenergan*] 25 mg PO QID PRN 10 Days #30 tab 08/11/23 - Past Medical/Surgical History Diabetic: No -: Crohn's disease -: Kidney Stones -: Cdiff history -: anxiety -: RA -: DVT -: stroke - 2019 -: hysterectomy -: kidney stone removed -: cholecystectomy -: tubal ligation Psychosocial/ Personal History: Lives at home with family - Family History Mother -: Hypertension Father -: Hypertension - Social History Smoking Status: Never smoker Alcohol use: No CD- Drugs: No Caffeine use: Yes Review of Systems General: Weakness, Malaise Cardiovascular: Light Headedness Neurological: Weakness Physical Examination - Physical Exam General: Alert, In no apparent distress, Oriented x3, Obese HEENT: Atraumatic, Normocephalic, PERRLA Neck: Supple, 2+ carotid pulse no bruit, JVD not distended Respiratory: Clear to auscultation bilaterally, Normal air movement Cardiovascular: Normal pulses, Regular rate/rhythm, Normal S1 S2 Capillary refill: <2 Seconds Gastrointestinal: Normal bowel sounds, Soft and benign, Non-distended Musculoskeletal: No clubbing, No swelling Integumentary: No rashes, No breakdown, No significant lesion Neurological: Normal speech, Normal strength at 5/5 x4 extr, Normal tone, Sensation intact, Cranial nerves 3-12 intact External genitalia: No edema, No lesions - Studies Laboratory Data (last 24 hrs) 03/08/24 03/08/24 03/08/24 17:47 17:47 17:47 WBC 10.50 Hgb 11.3 L Hct 32.7 L Plt Count 268 PT 16.0 H INR 1.53 APTT 40.6 H Sodium 131 L Potassium 3.9 BUN 31 H Creatinine 1.74 H Glucose 92 Magnesium 2.2 Total Bilirubin 0.3 AST 48 H ALT 88 H Alkaline Phosphatase 163 H Assessment and Plan - Problems (Diagnosis) (1) KIKE (acute kidney injury) Current Visit: Yes Status: Acute (2) Hypotension Current Visit: Yes Status: Acute (3) Hypotension due to drugs Current Visit: Yes Status: Acute - Plan Impression Acute kidney injury Hypotensionsymptomatic, likely due to muscle relaxant, rule out septic shock Rule out sepsisalthough less likely History of chronic pain syndrome History of Crohn's disease/rheumatoid arthritis/chance arthritis History of chronic anticoagulation History of baseline CKD stage IIIA Elevated TSH Elevated LFTs Plan We admit patient to observation Continue gentle IV fluid with NS Continue to monitor BP Obtain blood culture x 2, WBC within normal range, obtain lactic acid to rule out sepsis Likely cause of hypotension may be due to methocarbamol and tizanidine use Follow cortisol use given prior inappropriate prednisone usage Expected creatinine to improve with hydration Hold methocarbamol and tizanidine for now, may need to restart at a lower dose prior to discharge Patient still having intermittent headaches, obtain CRp and sed rate to rule out recurrent giant cell arteritis flare Need for rheumatology outpatient evaluation discussed Unclear etiology of elevated LFTs, may be due to immunosuppressive medication, follow trend might need GI DVT prophylaxiscontinue Xarelto Dispo possible hospital stay for 24 to 48 hours Total time spent in evaluation and discussion greater than 75 minutes - Advance Directives Does patient have a Living Will: No Does patient have a Durable POA for Healthcare: No - Code Status/Comfort Care Code Status: Full Code Physician Review: Patient Assessed, Agree with Above Assessment and Plan Critical Care: Yes Time Spent Managing Pts Care (In Minutes): 75
[2024-03-08] MEDS ORDERED: LORAZEPAM 0.5 MG TABLET PO PRN (20:10)
[2024-03-08] MEDS ORDERED: ONDANSETRON 4 MG/2 ML VIAL IV PRN (20:11)
[2024-03-08] MEDS ORDERED: ACETAMINOPHEN 500 MG TAB PO PRN (20:11)
[2024-03-08] MEDS ORDERED: FENTANYL CITR 100 MCG/2 ML ONE (20:32)
[2024-03-08] MEDS ORDERED: NA CHLORIDE 0.9% 100 ML ONE (20:33)
[2024-03-08] MEDS ORDERED: PIPERACIL/TAZO 3.375 GM VIAL IV ONE (20:33)
[2024-03-08] MEDS ORDERED: HOME MED 1 EA UNK (Gabapentin [Gabapentin] 600 MG Tablet) PO SCH (21:00)
[2024-03-08] MEDS: FAMOTIDINE 20 MG TAB PO SCH (22:47)
[2024-03-08] MEDS: MORPHINE 2 MG/ML SYR IV PRN (22:47)
[2024-03-08] MEDS: GABAPENTIN 400 MG CAP PO SCH (22:47)
[2024-03-08] MEDS: LORAZEPAM 1 MG TABLET PO SCH (22:47)
[2024-03-08] MEDS: NA CHLORIDE 0.9% 1,000 ML IV SCH (22:48)
[2024-03-09 01:25] VITALS: BMI 25.0
[2024-03-09 02:32] VITALS: O2SAT 98
[2024-03-09] MEDS: ONDANSETRON 4 MG/2 ML VIAL IV PRN (03:18)
[2024-03-09 07:14] LABS: Absolute Lymphocytes (CBC) 2.2 K/uL (0.7-4.9); Absolute Monocytes 0.7 K/uL (0.1-1.3); Absolute Neutrophil 4.9 K/uL (1.8-8.0); Basophils % 0.2 % (0-1.3); Eosinophils % 0.5 % (0-4.4); Hematocrit 30.4 % (36.0-45.0); Hemoglobin 10.6 g/dL (12.0-15.0); Lymphocytes % 27.4 % (15.3-44.8); MCH 34.6 pg (27.0-35.0); MCHC 34.8 g/dL (32.0-36.0); MCV 99.4 fL (80-100); MPV 8.1 fL (7.6-11.3); Monocytes % 9.4 % (3.3-12.3); Neutrophils % 62.5 % (41.7-73.7); Platelets 223 thou/uL (152-406); RBC Red Blood Cell Count 3.05 M/uL (3.86-4.86); Red Cell Distribution Width 13.7 % (12.1-15.2)
[2024-03-09 07:34] LABS: Albumin 3.3 g/dL (3.4-5.0); Albumin/Globulin Ratio 0.8 (1.1-1.8); Anion Gap 11.8 mEq/L (5.0-15.0); Bilirubin Total 0.4 mg/dL (0.2-1.0); Globulin 4.2 g/dL (2.3-3.5); Potassium 3.8 mEq/L (3.5-5.1); Protein, Total 7.5 g/dL (6.4-8.2)
[2024-03-09 07:49] LABS: ALT/SGPT 70 U/L (13-56); AST/SGOT 33 U/L (15-37); Albumin 3.4 g/dL (3.4-5.0); Albumin/Globulin Ratio 0.9 (1.1-1.8); Alkaline Phosphatase 140 U/L (45-117); Bilirubin Total 0.4 mg/dL (0.2-1.0); Protein, Total 7.4 g/dL (6.4-8.2); Troponin High Sensitivity 8.1 pg/mL (<58.9)
[2024-03-09 08:00] LABS: Bilirubin Direct < 0.2 mg/dL (0-0.2); Bilirubin Indirect, Calculated 0.2 mg/dL (0.2-0.8)
[2024-03-09] MEDS: Meropenem 1,000 MG in NA CHLORIDE 0.9% 100 ML IV SCH (08:00)
[2024-03-09] MEDS: FENOFIBRATE 48 MG TAB PO SCH (08:01)
[2024-03-09] MEDS: DICYCLOMINE HCL 10 MG CAP PO SCH (08:01)
[2024-03-09] MEDS: FLUOXETINE 20 MG CAP PO SCH (08:01)
[2024-03-09] MEDS: ASPIRIN EC 81 MG TAB PO SCH (08:01)
[2024-03-09] MEDS: BUSPIRONE HCL 5 MG TABLET PO SCH (08:01)
[2024-03-09 09:54] VITALS: BP 151/87; TEMP 98.6
[2024-03-09] MEDS ORDERED: RIVAROXABAN 15 MG TABLET PO SCH (17:00)
== END 2024-03-09 13:18 | disposition home or self-care (01) ==
LOC: ER 16:00 → ERHOLD 20:11 → 4TH 21:16
PROVIDERS: ADMIT Internal Medicine; ATTEND Hospitalist
DX: I95.9 Hypotension, unspecified (principal); N17.9 Acute kidney failure, unspecified; N39.0 Urinary tract infection, site not specified; R79.89 Other specified abnormal findings of blood chemistry; R42 Dizziness and giddiness; M06.9 Rheumatoid arthritis, unspecified; R53.1 Weakness; K50.90 Crohn's disease, unspecified, without complications; I10 Essential (primary) hypertension; M31.6 Other giant cell arteritis; Z86.718 Personal history of other venous thrombosis and embolism; Z79.01 Long term (current) use of anticoagulants
CPT/HCPCS: 96365; 87040 ×2; 87088; 85025 ×2; 81001; 87086; 80048; 36415; 83735; 85610; 80076 ×2; 83605; 85730; 84436; 84443; 84484 ×2; 84481; 84439; 80053; 82533; 83880; 86140; 70450; 71045; 96375; 99285; 96366; J2543; J3010; J2270 ×3; J2185; J1720; J2405; J7030 ×3; G0378

== ENCOUNTER 2024-03-20 09:22 | Day surgery (SDC) | payer BC ==
[2024-03-20] MEDS: ACETAMINOPHEN 500 MG TAB ONE (09:45)
[2024-03-20] MEDS: PROMETHAZINE INJ 25 MG/ML AMP ONE (09:46)
[2024-03-20] MEDS: DIPHENHYDRAMINE 25 MG TAB/CAP ONE (09:46)
[2024-03-20] MEDS ORDERED: NA CHLORIDE 0.9% 500 ML ONE (09:46)
[2024-03-20] MEDS ORDERED: INFLIXIMAB IV SCH (10:00)
[2024-03-20] MEDS ORDERED: NA CHLORIDE 0.9% IV SCH (10:00)
[2024-03-20 15:36] VITALS: BP 146/86; TEMP 98.5; O2SAT 100
== END 2024-03-20 12:45 | disposition home or self-care (01) ==
LOC: DS 09:22
PROVIDERS: ATTEND Internal Medicine Gastroenterology
DX: K50.911 Crohn's disease, unspecified, with rectal bleeding (principal)
CPT/HCPCS: 96365; 96366; J1745; J2550; J7040; J7050

== ENCOUNTER 2024-04-07 09:34 | Emergency (ER) | payer BC ==
[2024-04-07] MEDS ORDERED: KETOROLAC 30 MG/ML INJ ONE (10:04)
[2024-04-07] MEDS ORDERED: ACETAMINOPHEN 500 MG TAB ONE (10:04)
[2024-04-07 10:23] LABS: Sqamous Epithelial <5 /HPF (None Seen); Transitional Epithelial <5 /HPF (None Seen); Urine Bacteria 20-50 /HPF (<20); Urine Bilirubin NEGATIVE (Negative); Urine Blood 3+ (Negative); Urine Clarity Extremely Turbid (Clear); Urine Color Yellow (Yellow); Urine Culture Reflex Order REFLEXED; Urine Glucose NEGATIVE (Negative); Urine Ketones 2+ (Negative); Urine Micro Reflex YN NO BILL MICROSCOPIC; Urine Mucus Slight /HPF (None Seen); Urine Nitrite 2+ (Negative); Urine Protein 1+ (Negative); Urine RBC >50 /HPF (None Seen); Urine Urobilinogen Normal (Normal); Urine WBC >50 /HPF (<5); Urine pH 6.5 (5.0-7.0)
--- NOTE | 2024-04-07 10:33 | RAD REPORT ---
EXAMINATION: CT ABDOMEN AND PELVIS WITHOUT CONTRAST CLINICAL INDICATION: flank pain;Abd pain TECHNIQUE: CT abdomen and pelvis was performed, without IV contrast, as per department protocol. Axia l, sagittal and coronal reconstructions were obtained. One or more of the following dose reduction techniques were used: Automated exposure control, adjustment of the mA and kV according to the patien t size, and iterative reconstruction. Unless otherwise specified, incidental findings do not require dedicated imaging follow-up. COMPARISON: 01/21/2024 FINDINGS: The lack of intravenous contrast limits the sensitivity of this exam for evaluation of solid visceral organs, vascular structures, and retroperitoneum. LOWER CHEST: The visualized lung bases are clear. LIVER:Normal in size and contour. No focal lesion. Cholecystectomy clips. SPLEEN: Normal size. No focal lesion. PANCREAS: No mass, ductal dilation, or betsey-pancreatic fluid. ADRENALS: Normal; no mass. KIDNEYS AND URETERS: Small calyceal stones are present in both kidneys without hydronephrosis. No mas s. URINARY BLADDER: Normal contour. GASTROINTESTINAL TRACT: No evidence of bowel obstruction, significant free fluid, free air or abscess . APPENDIX: Normal appendix. LYMPH NODES: No lymphadenopathy. MUSCULOSKELETAL: Bilateral spondylolysis is present L5-S1. 6 mm anterolisthesis L5 on S1. ADDITIONAL FINDINGS: None. IMPRESSION: No acute or concerning abnormalities in the abdomen or pelvis, with evaluation limited by lack of IV contrast. Small calyceal calculi in both kidneys without hydronephrosis. Chronic bilateral spondylolysis with mild anterolisthesis L5 on S1.
[2024-04-07 10:34] LABS: Absolute Lymphocytes (CBC) 1.5 K/uL (0.7-4.9); Absolute Monocytes 0.5 K/uL (0.1-1.3); Absolute Neutrophil 4.5 K/uL (1.8-8.0); Basophils % 0.4 % (0-1.3); Eosinophils % 0.4 % (0-4.4); Hematocrit 30.8 % (36.0-45.0); Hemoglobin 10.6 g/dL (12.0-15.0); Lymphocytes % 23.6 % (15.3-44.8); MCH 34.3 pg (27.0-35.0); MCHC 34.5 g/dL (32.0-36.0); MCV 99.5 fL (80-100); MPV 7.7 fL (7.6-11.3); Monocytes % 7.1 % (3.3-12.3); Neutrophils % 68.5 % (41.7-73.7); Nucleated Red Blood Cells % 0.1 % (0-0); Platelets 330 thou/uL (152-406); RBC Red Blood Cell Count 3.09 M/uL (3.86-4.86); Red Cell Distribution Width 13.2 % (12.1-15.2)
[2024-04-07] MEDS ORDERED: NA CHLORIDE 0.9% 500 ML ONE (10:43)
[2024-04-07 10:56] LABS: Anion Gap 16.9 mEq/L (5.0-15.0); Potassium 3.9 mEq/L (3.5-5.1)
[2024-04-07] MEDS ORDERED: SMZ./TMP. 800/160 MG TABLET ONE (11:41)
[2024-04-07] MEDS ORDERED: MORPHINE 4 MG/ML SYR ONE (11:41)
--- NOTE | 2024-04-07 11:45 | ER ---
Nurse's Notes [facility] Name: Mckenna Avila Age: 48 yrs Sex: Female : 1975 Arrival Date: 04/07/2024 Time: 09:34 Bed 7 Private MD: Diagnosis: UTI/ Urinary tract infection, site not specified Presentation: 04/07 09:44 Chief complaint: Patient states: lower back pain radiating around to abdomen and aa5 burning with urination. 09:44 Coronavirus screen: At this time, the client does not indicate any symptoms associated aa5 with coronavirus-19. Ebola Screen: Patient denies travel to an Ebola-affected area in the 21 days before illness onset. Initial Sepsis Screen: Does the patient meet any 2 criteria? HR > 90 bpm. Does the patient have a suspected source of infection? No. Patient's initial sepsis screen is negative. Risk Assessment: Do you want to hurt yourself or someone else? Patient reports no desire to harm self or others. Onset of symptoms was March 2024. 09:44 Acuity: KEIKO 3 aa5 09:44 Method Of Arrival: Ambulatory aa5 Historical: - Allergies: 09:50 Ciprofloxacin; aa5 09:50 Omnicef; aa5 - PMHx: 09:50 chrons disease; CVA (Unknown); DVT; GCA; kidney disease; Kidney Infections; Kidney aa5 stones; Rheumatoid Arthritis; Temporal Arteritits (Rheumatoid Arthriti); "high blood pressure and low blood pressure" (Unknown); - PSHx: 09:50 Cholecystectomy; hysterectomy; aa5 - Immunization history:: Adult Immunizations unknown. - Infectious Disease History:: Denies. - Social history:: Smoking status: Patient denies any tobacco usage or history of. Screenin:13 Abuse screen: Denies threats or abuse. Denies injuries from another. Nutritional ss screening: No deficits noted. Tuberculosis screening: Never had TB. Assessment: 10:00 General: Appears in no apparent distress. comfortable, Pt is smiling, laughing and ss joking with ED staff and family that are at bedside. Pain: Complains of pain in low back pain. Neuro: Level of Consciousness is awake, alert, obeys commands, Oriented to person, place, time, situation, Speech is normal. Respiratory: Airway is patent Respiratory effort is even, unlabored, Respiratory pattern is regular, symmetrical. GI:. : Reports burning with urination. EENT: Oral mucosa is moist. Derm: Skin is intact, is healthy with good turgor, Skin is pink, warm \\T\\ dry. normal. 10:13 Reassessment: Pt to CT at this time VIA wheelchair. ss Vital Signs: 09:44 BP 133 / 92; Pulse 100; Resp 18 S; Temp 98.7(O); Pulse Ox 98% on R/A; Weight 70.31 kg aa5 (R); Height 5 ft. 7 in. (R); 09:44 Body Mass Index 24.28 (70.31 kg, 170.18 cm) aa5 ED Course: 09:39 Patient arrived in ED. cj3 09:42 Donovan Moses MD is Attending Physician. ec2 09:44 Arm band placed on Patient placed in an exam room, on a stretcher. aa5 09:52 Triage completed. aa5 10:13 Patient has correct armband on for positive identification. ss 10:14 Francisca Alcala, RN is Primary Nurse. ss 10:14 Test, Urine Sent. ss 10:14 UAM Sent. ss 10:18 CT Abd/Pelvis - Without Contrast In Process Unspecified. EDMS 10:30 Inserted saline lock: 24 gauge in right wrist, using aseptic technique. Blood ss collected. Flushed with 10 mL NS. 10:38 BMP Sent. ss 12:04 No provider procedures requiring assistance completed. IV discontinued, intact, ss bleeding controlled, No redness/swelling at site. Pressure dressing applied. Administered Medications: 10:38 Drug: Ketorolac IVP 15 mg IVP once Route: IVP; Site: right wrist; ss 11:45 Follow up: Response: No adverse reaction ss 10:38 Drug: Acetaminophen PO 1000 mg PO once Route: PO; ss 11:45 Follow up: Response: No adverse reaction ss 10:47 Drug: NS 0.9% IV 500 ml 500 ml IV at 1 bolus once; to be given as a bolus over 30 ss minutes Volume: 500 ml; Route: IV; Rate: 1 bolus; Site: right wrist; 12:00 Follow up: IV Status: Completed infusion; IV Intake: 500ml ss 11:45 Drug: Trimethoprim-Sulfamethoxazole PO (160 mg-800 mg (DS) 1 tablet PO once Route: PO; ss 12:00 Follow up: Response: No adverse reaction ss 11:45 Drug: morphine IVP or IV 4 mg IVP once over 4 mins Route: IVP; Infused Over: 4 mins; ss Site: right wrist; 12:00 Follow up: Response: No adverse reaction; Pain is decreased ss Medication: 10:13 VIS not applicable for this client. ss Intake: 12:00 IV: 500ml; Total: 500ml. ss Outcome: 11:45 Discharge ordered by MD. cunningham 12:04 Discharged to home ambulatory, 12:04 Condition: good 12:04 Discharge instructions given to patient, Instructed on discharge instructions, follow up and referral plans. medication usage, Demonstrated understanding of instructions, follow-up care, medications, Prescriptions given X 1, 12:04 Patient left the ED. Signatures: Dispatcher [employer] Sarah Morales RN RN aa5 Francisca Alcala RN RN Donovan Moses MD MD ec2 Ama Ramos 3
--- NOTE | 2024-04-07 11:45 | EDPHYS ---
Physician Documentation [facility] Name: Mckenna Avila Age: 48 yrs Sex: Female : 1975 Arrival Date: 04/07/2024 Time: 09:34 Bed 7 Private MD: ED Physician Donovan Moses HPI: 04/07 10:00 This 48 yrs old Female presents to ER via Ambulatory with complaints of Back ec2 Pain, Urinary Problem. 10:00 Patient arrives today for dysuria and generalized abdominal pain. Patient reports she ec2 been having symptoms for the past 4 days. Patient reports that she has been experiencing dysuria which she describes as burning sensation, generalized abdominal pain as well. Reports bilateral flank pain.. Historical: - Allergies: 09:50 Ciprofloxacin; aa5 09:50 Omnicef; aa5 - PMHx: 09:50 chrons disease; CVA (Unknown); DVT; GCA; kidney disease; Kidney Infections; Kidney aa5 stones; Rheumatoid Arthritis; Temporal Arteritits (Rheumatoid Arthriti); "high blood pressure and low blood pressure" (Unknown); - PSHx: 09:50 Cholecystectomy; hysterectomy; aa5 - Immunization history:: Adult Immunizations unknown. - Infectious Disease History:: Denies. - Social history:: Smoking status: Patient denies any tobacco usage or history of. ROS: 10:00 Constitutional: as per hpi ec2 Exam: 10:00 Constitutional: GEN: NAD Head: atraumatic Eyes: EOMI Ears: External ears are ec2 normal. CV: regular rate LUNGS: no respiratory distress ABD: non-distended, soft, not guarding, not rigid SKIN: no evidence of rashes MSK: no evidence of trauma Vital Signs: 09:44 BP 133 / 92; Pulse 100; Resp 18 S; Temp 98.7(O); Pulse Ox 98% on R/A; Weight 70.31 kg aa5 (R); Height 5 ft. 7 in. (R); 09:44 Body Mass Index 24.28 (70.31 kg, 170.18 cm) aa5 MDM: 09:45 Medical Screening Exam initiated ec2 10:01 Data reviewed: vital signs, nurses notes. ED course: Patient arrives today for ec2 generalized abdominal pain along with dysuria. Examination is revealing for abdominal findings as above. Will obtain lab work, urine studies.. 10:34 ED course: Urine infectious appearing. CT imaging shows no acute intra-abdominal ec2 process. testing negative. Pending blood work.. 11:19 ED course: DDx considered include processes such as urinary tract infection, ureteral ec2 stone, intra-abdominal infection.. 04/07 09:55 Order name: UAM; Complete Time: 10:34 ec2 04/07 10:00 Order name: CBC with Diff; Complete Time: 10:43 ec2 04/07 10:00 Order name: BMP; Complete Time: 11:10 ec2 04/07 10:00 Order name: Test, Urine; Complete Time: 10:34 ec2 04/07 10:29 Order name: Urine Culture EDAZ 04/07 10:00 Order name: CT Abd/Pelvis - Without Contrast; Complete Time: 10:34 ec2 04/07 10:00 Order name: IV; Complete Time: 10:38 ec2 Administered Medications: 10:38 Drug: Ketorolac IVP 15 mg IVP once Route: IVP; Site: right wrist; ss 11:45 Follow up: Response: No adverse reaction ss 10:38 Drug: Acetaminophen PO 1000 mg PO once Route: PO; ss 11:45 Follow up: Response: No adverse reaction ss 10:47 Drug: NS 0.9% IV 500 ml 500 ml IV at 1 bolus once; to be given as a bolus over 30 ss minutes Volume: 500 ml; Route: IV; Rate: 1 bolus; Site: right wrist; 12:00 Follow up: IV Status: Completed infusion; IV Intake: 500ml ss 11:45 Drug: Trimethoprim-Sulfamethoxazole PO (160 mg-800 mg (DS) 1 tablet PO once Route: PO; ss 12:00 Follow up: Response: No adverse reaction ss 11:45 Drug: morphine IVP or IV 4 mg IVP once over 4 mins Route: IVP; Infused Over: 4 mins; ss Site: right wrist; 12:00 Follow up: Response: No adverse reaction; Pain is decreased ss Disposition Summary: 04/07/24 11:45 Discharge Ordered Notes: Location: Home ec2 Condition: Stable ec2 Diagnosis - UTI/ Urinary tract infection, site not specified ec2 Followup: ec2 - With: Private Physician - When: - Reason: Re-evaluation by your physician Discharge Instructions: - Discharge Summary Sheet ec2 - Urinary Tract Infection, Adult ec2 Forms: - Medication Reconciliation Form ec2 - Antibiotic Education ec2 - Prescription Opioid Use ec2 - Patient Portal Instructions ec2 - Leadership Thank You Letter ec2 Prescriptions: - Bactrim DS 800-160 mg Oral Tablet - take 1 tablet ORAL route every 12 hours for 7 days; 14 tablet; Refills: 0, ec2 Product Selection Permitted Signatures: Dispatcher [employer] Sarah Morales RN RN aa5 Francisca Alcala RN RN ss Donovan Moses MD MD ec2 Corrections: (The following items were deleted from the chart) 10:00 10:00 Abdomen Pelvis Wo [id number] ordered. ED EDMS
[2024-04-07 12:09] VITALS: BP 133/92; TEMP 98.7; O2SAT 98
== END 2024-04-07 12:04 | disposition home or self-care (01) ==
LOC: ER 09:34
DX: N39.0 Urinary tract infection, site not specified (principal); R10.84 Generalized abdominal pain
CPT/HCPCS: 96361; 87088; 85025; 81001; 87086; 80048; 36415; 81025; 74176; 96375; 96374; 99284; J7040; 87077; 87186